=== PATIENT | female | born 1945 | race Caucasian/White ===

== ENCOUNTER → 2017-05-08 10:07 | Outpatient (CLI) | payer MEDICARE, BC, SELFPAY ==
[2017-05-10 08:50] LABS: HPV Reflexed? NOT INDICATED
== END ==
PROVIDERS: Family Provider Family Medicine; PCP Family Medicine; Visit Provider Family Medicine
DX: Z01.419 Encounter for gynecological examination (general) (routine) without abnormal findings (principal)
CPT/HCPCS: 36415; 88175; G0145

== ENCOUNTER → 2017-05-16 08:14 | Outpatient (CLI) | payer MEDICARE, BC, SELFPAY ==
[2017-05-16 09:43] LABS: Anion Gap 7 (5-15); BUN 12 mg/dL (7-18); BUN/Creat Ratio 16.2 RATIO (10-20); Calcium,Total 8.7 mg/dL (8.5-10.1); Chloride 103 mmol/L (98-107); Cholesterol 209 mg/dL (200); Creatinine, Serum 0.74 mg/dL (0.55-1.02); EST Glomerular Filtration Rate 82 mL/min (>60); Est Glom Filt Rate - Afr Amer 99 mL/min (>60); Glucose 104 mg/dL (70-110); High Density Lipoprotein 67 mg/dL; Potassium 3.3 mmol/L (3.5-5.1); Sodium Level 141 mmol/L (136-145); T4 Free Direct 1.18 ng/dL (0.76-1.46); Thyroid Stim Hormone (TSH) 1.97 uIU/mL (0.358-3.74); Triglycerides 152 mg/dL; Very Low Density Lipoprotein 30 mg/dL (5-40)
[2017-05-17 08:55] LABS: PTHIN 12.3 pg/mL (18.4-80.1)
[2017-05-21 10:25] LABS: Vitamin D 1,25-Dihydroxy 18.7 pg/mL (19.9-79.3)
== END ==
PROVIDERS: Nurse Practitioner; Family Provider Family Medicine; PCP Family Medicine; Visit Provider Family Medicine
DX: E03.9 Hypothyroidism, unspecified (principal); E78.1 Pure hyperglyceridemia; E21.5 Disorder of parathyroid gland, unspecified
CPT/HCPCS: 36591; 80048; 80061; 82330; 82652; 83970; 84439; 84443; 84481; A4216

== ENCOUNTER → 2017-10-15 12:57 | Outpatient (CLI) | payer MEDICARE, BC, SELFPAY ==
[2017-10-15 14:04] LABS: Free T3 2.6 pg/mL (2.18-3.98); T4 Free Direct 1.21 ng/dL (0.76-1.46); Thyroid Stim Hormone (TSH) 1.51 uIU/mL (0.358-3.74)
[2017-10-16 10:22] LABS: Vitamin D,25 Hydroxy 33.7 ng/mL (29.95-100.01)
== END ==
PROVIDERS: Family Provider Family Medicine; PCP Family Medicine; Visit Provider Nurse Practitioner
DX: E03.9 Hypothyroidism, unspecified (principal); E55.9 Vitamin D deficiency, unspecified
CPT/HCPCS: 36591; 82306; 84439; 84443; 84481; A4216

== ENCOUNTER → 2017-10-28 10:29 | Outpatient (CLI) | payer MEDICARE, BC, SELFPAY ==
[2017-10-28 11:08] LABS: AST(SGOT) 21 U/L (15-37); Alanine Aminotransfer ALT/SGPT 24 U/L (13-56); Albumin, Serum 3.8 g/dL (3.2-5.0); Alkaline Phosphatase 74 U/L (45-117); Anion Gap 9 (5-15); BUN 10 mg/dL (7-18); BUN/Creat Ratio 12.8 RATIO (10-20); Calcium,Total 8.8 mg/dL (8.5-10.1); Chloride 100 mmol/L (98-107); Creatinine, Serum 0.78 mg/dL (0.55-1.02); EST Glomerular Filtration Rate 77 mL/min (>60); Est Glom Filt Rate - Afr Amer 94 mL/min (>60); Globulin 3.8 g/dL (2.2-4.2); Glucose 101 mg/dL (74-106); Potassium 3.4 mmol/L (3.5-5.1); Protein, Total 7.6 g/dL (6.4-8.2); Sodium Level 139 mmol/L (136-145)
== END ==
PROVIDERS: Family Provider Family Medicine; PCP Family Medicine; Visit Provider Nurse Practitioner
DX: E87.6 Hypokalemia (principal)
CPT/HCPCS: 36591; 80053; A4216

== ENCOUNTER → 2018-04-25 10:24 | Outpatient (CLI) | payer MEDICARE, BC, SELFPAY ==
[2018-04-25 11:39] LABS: Free T3 2.6 pg/mL (2.18-3.98); T4 Free Direct 1.16 ng/dL (0.76-1.46); Thyroid Stim Hormone (TSH) 1.25 uIU/mL (0.358-3.74)
[2018-04-25 11:49] LABS: Vitamin D,25 Hydroxy 35.1 ng/mL (29.95-100.01)
== END ==
PROVIDERS: Family Provider Family Medicine; PCP Family Medicine; Referring Provider Nurse Practitioner; Visit Provider Nurse Practitioner
DX: E03.9 Hypothyroidism, unspecified (principal); E55.9 Vitamin D deficiency, unspecified
CPT/HCPCS: 36591; 82306; 84439; 84443; 84481; A4216

== ENCOUNTER 2018-05-29 05:50 | Emergency (ER) | payer MEDICARE, BC, SELFPAY ==
[2018-04-29 09:25] VITALS: BMI 26.8
[2018-05-29 05:51] VITALS: BP 164/79; PULSE 83; RESP 16; TEMP 36.6; O2SAT 98; BMI 25.8
--- NOTE | 2018-05-29 06:07 | RAD_ITS ---
HISTORY: FELLC/O RT SHOULDER AND PROXIMAL HUMERUS PAIN COMPARISON: None FINDINGS: XR right shoulder 3 views Impacted, displaced fracture of the right humeral surgical neck. Posterior rotation of the humeral head but no dislocation. The remaining visualized bones appear intact. The right AC joint appears preserved. Right jugular Port-A-Cath in place. RAD/Shoulder min 2 Views IMPRESSION: Impacted, displaced fracture of the right humeral neck. at 0634 Reported and signed by: Warren Sifuentes MD Electronically Signed: Warren Sifuentes, at 6:33 EST Tel , Service support ,
--- NOTE | 2018-05-29 06:08 | ED.DCSUM_ITS ---
- ER Visit Summary Date of Service: 05/29/18 Chief Complaint: [] Fall with injury to right upper arm History of Present Illness: The patient is a 72 F she stated she injured her right upper arm 30 minutes ago. She was walking up steps and was moving a baby gate. She slipped on the steps and tripped and fell down onto the hardwood floor below. She is having pain in her right shoulder. She stated that it hurts to move it. She is unsure if she broke it. Comes in for further evaluation. She did have a hydrocodone 3 hours ago. She takes this chronically. She broke her left wrist 3 weeks ago after she slipped and fell on the ice. She saw orthopedics and had this casted Physical Examination: [] Vital signs reviewed General: Well-nourished well-developed Head: Normocephalic atraumatic Eyes: Pupils equal round and reactive to light extraocular movements intact ENT: TMs clear no hemotympanum no trauma Neck: Nontender full range of motion Cardiovascular: Regular rate rhythm no murmurs normal S1-S2 Respiratory: No distress clear to auscultation bilaterally chest nontender Abdomen: Soft nontender nondistended normal bowel sounds no masses Back: Nontender no CVA tenderness Extremities: Tenderness to palpation with inability to move the right shoulder. No tenderness of the clavicle. No distal humerus tenderness. Elbow forearm and wrist normal. Distal neurovascular intact Skin: Normal color no trauma Neuro alert oriented cranial nerves II through XII intact normal strength sensation reflexes Test Results: [] Emergency Department Course and Treatment: [] X-ray of the right shoulder obtained she does have a right humeral fracture. She was placed in a sling and swath and given a dose of morphine. She will follow-up with her own orthopedic surgeon. She will be given a short course of Percocet for home. She states that hydrocodone given to her by family doctor no longer works. She was stopped taking this and take the stronger Percocet. Treatment Plan: [] Disposition: [] Impression: [] Right humeral head fracture This note was generated with [employer] dictation software. It may contain incorrect words, spelling, and punctuation that were not noted in review of the chart prior to signing ED Disposition - Plan for ED Patient: Referrals: Erica Richardson DO [Primary Care Provider] -
--- NOTE | 2018-05-29 06:47 | ED.DEP ---
ED Disposition - Plan for ED Patient: Disposition: Home or Assisted Living Instructions: ED Fx Shoulder Prescriptions: Oxycodone HCl/Acetaminophen [Percocet 5/325] 1 - 2 tab PO Q6H PRN PRN 3 Days #15 tab PRN Reason: Pain Referrals: Erica Richardson DO [Primary Care Provider] - Additional Instructions: follow with your orthopedic surgeon
[2018-05-29] MEDS: Morphine 4 MG/ML Syringe IM (06:56)
[2018-05-29 07:19] VITALS: PULSE 87; O2SAT 93
== END 2018-05-29 07:20 | disposition home or self-care (01) ==
PROVIDERS: Emergency Provider Emergency Medicine; Family Provider Family Medicine; PCP Family Medicine
DX: S42.291A Other displaced fracture of upper end of right humerus, initial encounter for closed fracture (principal); W00.0XXA Fall on same level due to ice and snow, initial encounter; Y93.9 Activity, unspecified; Y92.89 Other specified places as the place of occurrence of the external cause; Y99.9 Unspecified external cause status; Z85.3 Personal history of malignant neoplasm of breast
CPT/HCPCS: 73030; 96372; 96374; 99284

== ENCOUNTER → 2018-10-01 07:14 | Outpatient (CLI) | payer MEDICARE, BC, SELFPAY ==
--- NOTE | 2018-10-01 08:30 | BRBX_PTH ---
PATIENT: AIDEN FIELDS LOC: [facility] U#:[id number] AGE/SX: 79/F ROOM: RE10/01/[address]: Dr. Devora Harvey MD : 1945 BED: DIS: SPEC #: [id number] RECD: 10/01/18 09:28 STATUS: AVANI MARTIR #: [id number] MEREDITH: 10/01/18 08:[address]: Devora Harvey DEPT: SURGICAL PATHOLOGY RECD BY: Sole Olivera ENTERED: 10/01/18 11:42 SP TYPE: BREAST BX OTHR DR: Dr. 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 No evidence of malignancy. AM:arthur 10/02/18 MICROSCOPIC DESCRIPTION Slides are reviewed. GROSS DESCRIPTION Received is one container labeled with the patient's name and not further designated. The specimen consists of multiple elongated fragments of ward-yellow fibroadipose tissue that in aggregate measure 5 x 3 x 0.3 cm. The entire specimen is submitted in two cassettes. / SJ:arthur 10/01/18 TC:5 [facility]: [id number]
--- NOTE | 2018-10-01 09:01 | HP.PCM_ITS ---
History and Physical Date of Admission: 10/01/18 Romana Carson 1945 ? ? REFERRING PHYSICIAN: Lupe Pinon APRN.* ? CHIEF COMPLAINT: Consult (Consult Calcifications) ? HPI: The patient is a 72 year old female presents with abnormal calcifications on right breast mammograms - superior lateral quadrant middle depth. She is s/p right breast mastectomy for breast cancer Denies noting any masses. Denies right breast nipple discharge. Denies previous right breast biopsy Denies breast pain. ? Mammograms 09/10/18 There are a grouped pleomorphic calcifications in the right breast superior lateral quadrant middle depth. No other significant masses or calcifications are seen in the breast. ? ? PAST MEDICAL HISTORY ? Abdominal pain, left lower quadrant ? ? Abdominal pain, right lower quadrant ? ? Anxiety state, unspecified ? ? Breast cancer (HCC) ? ? left ? Colitis ? ? Depressive disorder, not elsewhere classified ? ? HTN (hypertension) ? ? Hypothyroidism ? ? Insomnia, unspecified ? ? Mitral valve disorders(424.0) ? ? Unspecified constipation ? ? Unspecified constipation ? ? ? PAST SURGICAL HISTORY ? COLONOSCOP W/ OR W/O BRSH SPEC ? 10/07/07 ? EYE SURGERY HX Left 10/21/2014 ? laser glaucoma surgery ? EYE SURGERY HX Right 11/04/2014 ? laser glaucoma surgery ? KNEE SCOPE,DIAGNOSTIC ? 2011 ? Arthroscopy, left knee ? MASTECTOMY, MODIFIED RADICAL ? 09-04-12 ? left ? OPEN RX PROX HUMERUS FX Right 06/13/2018 ? ORIF right shoulder proximal humerus ? PAST SURGICAL HISTORY OF ? ? ? lump removed from left side of neck as a child ? PAST SURGICAL HISTORY OF ? ? ? breast biopsies, negative ? PAST SURGICAL HISTORY OF ? 01/2008 ? D&C ? PAST SURGICAL HISTORY OF ? 06/08/2009 ? Thyroidectomy ? PAST SURGICAL HISTORY OF ? 2011 ? ganglions cyst removed from left hand twice ? PAST SURGICAL HISTORY OF ? 06/06/2012 ? Left breast biopsy ? PAST SURGICAL HISTORY OF ? 06/26/2012 ? Left axillary biopsy ? PAST SURGICAL HISTORY OF ? 2014 ? right upper arm- removal of melanoma ? PAST SURGICAL HISTORY OF Left 10/21/2014 ? PAST SURGICAL HISTORY OF Right 11/04/2014 ? REMOVAL OF TONSILS,<12 Y/O ? ? ? Tonsillectomy ? TUNNEL VAD W SUB Q PORT >=5 ? 3-11-13 ? RIGHT IJ ? ? Current Outpatient Medications: famotidine (PEPCID) 20 mg tablet TAKE 1 TABLET BY MOUTH DAILY AT BEDTIME. letrozole (FEMARA) 2.5 mg tablet TAKE 1 TABLET BY MOUTH ONCE DAILY. levothyroxine (SYNTHROID) 125 mcg tablet Take 125 mcg by mouth once daily. LYRICA 100 mg capsule Take 100 mg by mouth three times daily. CALCIUM CITRATE/VITAMIN D3 (CITRACAL + D ORAL) Take 2 tablets by mouth once daily. calcitriol (ROCALTROL) 0.5 mcg capsule Take 1 capsule by mouth once daily. nortriptyline (PAMELOR) 50 mg capsule Take 100 mg by mouth daily at bedtime. indapamide (LOZOL) 1.25 mg tablet Take 1.25 mg by mouth once daily. VIT C/E/ZN/COPPR/LUTEIN/ZEAXAN (PRESERVISION AREDS 2 ORAL) Take 1 tablet by mouth once daily. Cholecalciferol, Vitamin D3, 1,000 unit tab Take 1 tablet by mouth once daily. Aspirin 81 mg tab Take 81 mg by mouth once daily. Fiber cap Take 4 capsules by mouth once daily as needed. docusate sodium (COLACE) 100 mg ORAL Cap Take three capsules by mouth twice daily as needed. clonazepam(KLONOPIN 1 MG TAB) Take one tablet by mouth four times daily as needed. HYDROcodone-acetaminophen (NORCO) 5-325 mg per tablet ONE TABLET BY MOUTH FOUR TIMES DAILY NEEDED 0.9 % sodium chloride (0.9% NACL) Access implanted vascular access device (IVAD) as needed for flush, blood draw or treatment.Flush IVAD with 10-20 mL NS every 4 weeks and PRN when IVAD not in use. heparin 100 unit/mL injection Access implanted vascular access device (IVAD) as needed for flush, blood draw or treatment. Before de-accessing port, flush with 10-20ml normal saline and follow with 5 mL heparin (100 units/mL) (if no heparin allergy). De-access port on treatment completion. polyethylene glycol 3350 (MIRALAX) 17 gram/dose powder Take 17 g by mouth once daily. pyridoxine (VITAMIN B6) 100 mg tablet Take 100 mg by mouth once daily. phenazopyridine (PYRIDIUM) 200 mg tablet Take 1 tablet by mouth three times daily as needed. COMPOUNDED PRESCRIPTION L8030 Breast Prosehesis COMPOUNDED PRESCRIPTION L8020 Leisure Breast Form COMPOUNDED PRESCRIPTION L8000 Surgical/Mastectomy Bras glycerin(COLACE (GLYCERIN) 1.5 G RECT SUPP) Insert one suppository into rectum once daily ? ? ALLERGIES: Antihistamines - Alkylamine; Neosporin [Erglcvas-Jjocqhkzge-[id number]] ? PERSONAL HISTORY: Social History Socioeconomic History Marital status: Spouse name: Not on file Number of children: Not on file Years of education: Not on file Highest education level: Not on file Social Needs Financial resource strain: Not on file Food insecurity - worry: Not on file Food insecurity - inability: Not on file Transportation needs - medical: Not on file Transportation needs - non-medical: Not on file Occupational History Not on file Tobacco Use Smoking status: Current Every Day Smoker Packs/day: 0.50 Years: 40.00 Pack years: 20 Types: Cigarettes Smokeless tobacco: Never Used Substance and Sexual Activity Alcohol use: No Drug use: No Sexual activity: Not on file Other Topics Concerns: Not on file Social History Narrative Not on file ? FAMILY HISTORY ? Heart Mother ? ? stents ? None Father ? ? suicide, depression age 68. ? Heart Sister ? ? Thyroid Sister ? ? ? REVIEW OF SYSTEMS: General - denies fevers, improving appetite Cardiovascular - denies chest pain, denies chest palpitations Pulmonary - denies shortness of breath, denies coughing up blood Gastrointestinal - denies abdominal pain, denies nausea/emesis Neurological - denies seizures, numbness of extremities secondary to chemotherapy Genitourinary - denies burning with urination, denies blood in stools Hematological - denies spontaneous/prolonged bleeding Skin - denies nonhealing skin wounds Musculoskeletal - denies myalgias Endocrine - denies diabetes Psychological ? denies hallucinations Obstetrical: menarche onset at age 12/13, , first at age 24, denies breast feeding, menopause at age 43, HRT for 5-10 y ? PHYSICAL EXAMINATION: General: The patient is 72 year old female, well nourished, well hydrated in no acute distress. The patient is oriented to time, place, and person. VITALS: BP 168/90 ? Pulse 78 ? Temp 98.7 ?F Wt 152 lb BMI 24.53 kg/m? ? Head ? Normocephalic. EOM intact with sclera clear and no icterus noted. Wearing glasses. Mouth with mucus membranes moist. Neck - supple with no jugular venous distention noted. Trachea is midline. No carotid bruits noted. No thyroid enlargement or thyroid nodules detected. No masses noted. Chest/breast ? upper right chest portacath in place, left breast is surgically absent, no suspicious skin lesions noted, no right nipple discharge and nipple everted, no breast masses noted Lungs ? clear to auscultation. Normal breath sounds. No rales/rhonchi/wheezing noted. No labored breathing noted, such as retractions. No cough heard. Heart ? normal S1 and S2 auscultated. No rubs/clicks/murmurs noted. Regular rate. Abdomen ? soft and benign. Normal bowel sounds. No abdominal bruits noted. No masses noted. Extremities ? no calf tenderness noted. No pitting edema noted. Skin ? normal skin integrity. Lymph ? no cervical adenopathy detected, no supraclavicular adenopathy detected, no axillary adenopathy detected Neurological ? gait normal, no focal deficits noted. Psych ? calm and appropriate RADIOLOGIC STUDIES: As Noted ? ? IMPRESSION: abnormal calcifications of right breast mammograms, history of left breast cancer ? PLAN: I have discussed the above with the patient and her who is pr esent with her I have offered right stereotactic breast biopsy. I have explained the procedure to the patient. I have counseled the patient as to the risks of the procedure, including but not limited to: infection, bleeding, injury to any blood vessels/nerves, scar tissue, wound infections, complications of anesthesia, etc. ? the patient understands. The patient wishes to proceed. She will need to be off aspirin for three days prior to the procedure. I have answered all questions to the patient?s satisfaction and the patient has no further questions. . Diagnoses: (R92.8) Abnormal mammogram (primary encounter diagnosis) (Z85.3) History of left breast cancer (Z79.82) Aspirin long-term use Return to Clinic: The patient is instructed to follow-up with me after the procedure above. ? I have confirmed and edited as necessary, the PFSH and ROS obtained by others. ? Devora Harvey MD
--- NOTE | 2018-10-01 09:02 | OP.PCM_ITS ---
Report of Operation Date of Procedure: 10/01/18 Pre-Operative Diagnosis: abnormal right breast calcifications on mammograms Post-Operative Diagnosis: same Surgery/Procedure Performed:: right stereotactic breast biopsy Description of Surgical Findings:: upper outer lesion of the right breast Type of Anesthesia:: Local - 1% xylocaine Specimen's removed: right breast tissue Estimated Blood Loss (mL): < 1 ml Fluids Replaced: none Description of Procedure: After informed consent was given, the patient was brought into the breast biopsy suite and then placed in the prone position on the stereotactic biopsy table. The patient?s right breast was then placed in the opening at the head of the table. A network control technician compression mammogram was then obtained in the CC view. The suspicious radiological lesion was then identified. Stereo pictures of the lesion were then taken for XYZ coordinates. The Mammotome biopsy stylus was then positioned where it would be entering into the patient?s breast. The skin at this site was then cleansed with a surgical skin preparation. The skin and subcutaneous tissues at this site were then infiltrated with 1% xylocaine. A small skin incision was made with an 11 blade scalpel. The biopsy stylus was then positioned into the patient?s breast at the proper coordinates of depth. Using the Mammotome vacuum-assist device, several core samples of breast tissue were obtained. A specimen mammogram was the obtained and revealed that the suspicious lesion was within the specimen. A hemostatic marker clip was then placed into the biopsy cavity and a network control technician film revealed that it was properly deployed. The patient was then placed in the supine position and pressure was applied to the breast until no active bleeding was noted. Steristrips were applied to reapproximate the skin. A unilateral mammogram in the CC and MLO view were then taken which revealed that the marker clip was in the same area as the previous suspicious lesion. The patient tolerated the procedure well and was discharged from the breast biopsy suite in good condition. - Complications none noted
== END ==
PROVIDERS: Family Provider Family Medicine; PCP Family Medicine; Referring Provider Surgery; Visit Provider Surgery
DX: R92.1 Mammographic calcification found on diagnostic imaging of breast (principal); I10 Essential (primary) hypertension; E03.9 Hypothyroidism, unspecified; Z79.82 Long term (current) use of aspirin; Z85.3 Personal history of malignant neoplasm of breast; F17.210 Nicotine dependence, cigarettes, uncomplicated; Z90.11 Acquired absence of right breast and nipple
CPT/HCPCS: 19081; 88305; J7050; A4648

== ENCOUNTER → 2018-12-04 06:50 | Outpatient (CLI) | payer MEDICARE, BC, SELFPAY ==
--- NOTE | 2018-12-04 07:04 | MRI_ITS ---
STUDY: MRI BRAIN WITH AND WITHOUT CONTRAST REASON FOR EXAM: Female, 73 years old. Gait disturbance, malignant melanoma, breast cancer. TECHNIQUE: Standardized multiplanar fat and water weighted pulse sequences were obtained. 13 IV Dotarem was administered for the contrast portion of the examination. COMPARISON: 11/09/2009 FINDINGS: There is moderate cerebral atrophy with widening of the extra-axial spaces and ventricular dilatation. There are a limited number of small white matter hyperintensities, distributed throughout the deep white matter tracts of the cerebral hemispheres, consistent with mild chronic white matter ischemic changes. There is no evidence for recent intracranial ischemia or other cause of cytotoxic edema on diffusion weighted imaging (DWI). Normal T2* images of the brain without demonstrated susceptibility artifact. There is no demonstrated hemosiderin stain. Normal bilateral basal ganglia. Normal thalami. There is no extra-axial fluid accumulation. Normal flow voids within the major intracranial circulation suggesting patency by spin echo criteria. Normal venous enhancement. There is no enhancing intra-axial or extra-axial abnormality. Normal sella turcica, pituitary gland, infundibular stalk, optic chiasm and hypothalamus. Normal tectal plate and pineal gland. Normal midbrain, diana and medulla. Normal cerebellum. Normal basal cisterns. Normal bilateral temporal bones. Normal bilateral internal auditory canals. No demonstrated orbital abnormality, within the constraints of a routine brain study. Normal visualized paranasal sinuses. Normal calvarium and skull base. Normal visualized soft tissue structures. Normal visualized upper cervical spine. MRI/Brain W/WO Contrast IMPRESSION: Involutional changes of the brain, as described above. No MR evidence of metastatic disease. Electronically Signed: Colten Simms MD at 9:01 EDT Tel , Service support ,
[2018-12-04 07:19] LABS: Absolute Lymphocyte Count 1.75 X10^3/uL (0.83-4.51); Absolute Neutrophil Count 6.5 X10^3/uL (2.0-7.7); Basophil# 0.14 X10^3/uL; Basophil% 1.3 % (0-1); Eosinophil# 1.06 X10^3/uL; Eosinophils% 10.2 % (0-5); Hematocrit 38.6 % (37-47); Hemoglobin 12.7 g/dL (12.0-15.0); Lymphocyte # 1.75 X10^3/ul (4.0); Lymphocyte % 16.8 % (19-41); Mean Corp Hgb Conc 32.9 g/dL (32-36); Mean Corpuscular Hgb 30.6 pg (27.0-32.0); Mean Platelet Vol. 10.8 fl (6.2-12.0); Monocyte# 0.94 X10^3/uL; NRBC Flagged by Analyzer 0 % (0-5); Neutrophil # 6.49 X10^3/uL (2.7-7.7); Neutrophil % 62.2 % (47-70); Platelet Count 266 K/mm3 (150-450); RBC Distribution Width CV 13.2 % (11.6-14.6); RBC Distribution Width SD 44.7 fl (35.1-43.9); Red Blood Count 4.15 M/mm3 (4.2-5.4); White Blood Count 10.4 K/mm3 (4.4-11.0)
[2018-12-04 07:35] LABS: AST(SGOT) 16 U/L (15-37); Alanine Aminotransfer ALT/SGPT 24 U/L (13-56); Albumin, Serum 3.8 g/dL (3.2-5.0); Alkaline Phosphatase 86 U/L (45-117); Anion Gap 7 (5-15); BUN 10 mg/dL (7-18); BUN/Creat Ratio 12.6 RATIO (10-20); Calcium,Total 8.7 mg/dL (8.5-10.1); Chloride 101 mmol/L (98-107); Creatinine, Serum 0.79 mg/dL (0.55-1.02); EST Glomerular Filtration Rate 76 mL/min (>60); Est Glom Filt Rate - Afr Amer 92 mL/min (>60); Globulin 3.7 g/dL (2.2-4.2); Glucose 107 mg/dL (74-106); LDH 186 U/L (84-246); Potassium 3.5 mmol/L (3.5-5.1); Protein, Total 7.5 g/dL (6.4-8.2); Sodium Level 137 mmol/L (136-145)
== END ==
PROVIDERS: Family Provider Family Medicine; PCP Family Medicine; Referring Provider Family Medicine; Visit Provider Family Medicine
DX: Z51.81 Encounter for therapeutic drug level monitoring (principal); C43.9 Malignant melanoma of skin, unspecified; Z85.820 Personal history of malignant melanoma of skin
CPT/HCPCS: 36415; 70553; 80053; 83615; 85025; A9575

== ENCOUNTER 2019-02-13 13:34 | Emergency (ER) | payer MEDICARE, BC, SELFPAY ==
[2019-02-13 13:35] VITALS: BP 143/87; PULSE 93; RESP 20; TEMP 36.7; O2SAT 95; BMI 26.9
--- NOTE | 2019-02-13 14:01 | CT_ITS ---
STUDY: CT BRAIN WITHOUT CONTRAST REASON FOR EXAM: Female, 73 years old. Pain following a fall. The patient has a history of breast cancer. RADIATION DOSAGE (If Supplied By Facility): CTDIvol = ( 44.99 ) mGy, DLP = ( 796.11 ) mGycm TECHNIQUE: Transaxial CT imaging of the brain was performed without administration of intravenous contrast material. Individualized dose optimization techniques were used for this CT. COMPARISON: No relevant priors. FINDINGS: Normal soft tissue structures. Normal calvarium. There is mild cerebral atrophy with widening of the extra-axial spaces and ventricular dilatation. Normal white matter tracts of the cerebral hemispheres. Normal basal ganglia and thalami. Normal brainstem. Normal cerebellum. There is no intracranial hemorrhage. There are no findings of an acute ischemic infarction. Normal visualized paranasal sinuses. CT/Brain/Head without Contrast IMPRESSION: Chronic involutional changes of the brain. Electronically Signed: Franki Glez, at 14:58 EDT , Service support ,
--- NOTE | 2019-02-13 14:02 | ED.DCSUM_ITS ---
History of Present Illness Chief Complaint: Fall Narrative: 73-year-old female slipped on her carpeted steps falling backwards striking the back of her head and her lower back. She denies any other injuries. She has only a mild headache at this time. No neck pain. Minimal low back pain but she feels that it is most likely muscular. She recalls all details of the event. She was able to get back up on her own. She did not sustain an injury to her extremity's. The onset of her pain was sudden. The severity is mild. It is better with ice. Past Medical History - Allergies and Home Meds Allergies/Adverse Reactions: Allergies bacitracin [From Neosporin ([id number])] Allergy (Unknown, Verified 02/13/19 13:38) Unknown diphenhydramine [From Benadryl] Allergy (Unknown, Verified 02/13/19 13:38) Unknown neomycin [From Neosporin ([id number])] Allergy (Unknown, Verified 02/13/19 13:38) Unknown polymyxin B [From Neosporin ([id number])] Allergy (Unknown, Verified 02/13/19 13:38) Unknown benedryl Allergy (Severe, Uncoded 02/13/19 13:38) Unknown Primary Care Physician: Erica Richardson DO [Primary Care Provider] - Prior records reviewed: Yes Smoking Status: Current every day smoker Review of Systems General: Denies: Chills, Fever, Sweats Eyes: Denies: Visual changes - bilaterally, Diplopia ENT: Denies: Rhinorrhea, Sore throat Cardiovascular: Denies: Chest pain, Palpitations Respiratory: Denies: Dyspnea, Cough, Dyspnea on exertion Gastrointestinal: Denies: Abdominal pain, Nausea, Vomiting, Diarrhea, Melena, Hematochezia Genitourinary: Denies: Dysuria, Hematuria, Frequency Musculoskeletal: Reports: Back pain. Denies: Extremity Pain Skin: Denies: Rash, Wounds Neurological: Reports: Headache. Denies: Weakness, Numbness Physical Exam Vital Signs/Narrative: Vital Signs Temp Pulse Resp BP Pulse Ox 02/13/19 13:35 98.1 F 93 20 H 143/87 H 95 General: Well nourished, Well developed, No Acute Distress Head: Normocephalic, Atraumatic Eyes: Perrl, EOMI ENT: Moist mucous membranes, No rhinorrhea Neck: Supple, Nontender Cardiovascular: Regular rate, Regular rhythm, No murmurs Respiratory: No distress, CTA bilaterally, Chest nontender Abdomen: Soft, Nontender, Nondistended, Normal bowel sounds Back: Normal Inspection, - - Paraspinal lumbar tenderness bilaterally. No midline bony spinal tenderness, erythema, or fluctuance. Extremities: Nontender, No edema Skin: Normal color, No rash Neurological: Alert, Oriented x3, Cranial nerves II-XII grossly intact, Normal Strength, Normal Sensation Psychological: Normal affect, Normal Mood Diagnostic/Tx/Re-eval - Medical Decision Making CT brain is negative. She has no neck tenderness at all. There is a thoracic compression fracture at T12 but no evidence of displacement. Her neurologic exam is normal. No weakness anywhere. No evidence of other injury. She can ambulate without difficulty. She is comfortable going home with close follow- up. She will see her doctor on Saturday for specialist referrals and return here if worse. She is on chronic pain medication and was honest with me about her prescriptions but I did write her a short course to help with breakthrough pain over the weekend. She was instructed to return here if she has any neurologic symptoms or increased pain. ED Disposition - Plan for ED Patient: Disposition: Home or Assisted Living Diagnosis: T12 compression fracture, Concussion without loss of consciousness, initial encounter Instructions: FALL, Mechanical, Back Fracture (Compression Fracture), Concussion Prescriptions: Docusate Sodium [Colace] 100 mg PO DAILY #20 capsule Oxycodone HCl/Acetaminophen [Percocet 5/325] 1 tablet PO Q6H PRN PRN 3 Days #12 tablet PRN Reason: Pain Or Fever Referrals: Erica Richardson DO [Primary Care Provider] -
[2019-02-13] MEDS: Morphine 4 MG/ML Syringe IM (14:32)
--- NOTE | 2019-02-13 14:40 | RAD_ITS ---
STUDY: X-RAY - LUMBAR SPINE REASON FOR EXAM: Female, 73 years old. Neck pain following a fall. TECHNIQUE: AP and lateral view(s) of the lumbar spine were obtained. COMPARISON: None FINDINGS: Compression fracture of the T12 vertebrae with approximately 20% loss of height. There is straightening of the normal lumbar lordosis. There is a mild levoscoliosis of the lumbar spine. There is a normal alignment of the vertebrae. There is multilevel endplate spondylosis of the lumbar vertebrae. There is multi-level degenerative disc disease with multi-level disc space narrowing. There is atherosclerotic calcification of the abdominal aorta without a demonstrated aneurysm. RAD/Lumbar Spine 2 or 3 Views IMPRESSION: Nondisplaced compression fracture of the T12 vertebrae. Electronically Signed: Franki Glez, at 15:16 EDT , Service support ,
[2019-02-13 15:52] VITALS: BP 141/85; PULSE 103; RESP 17; O2SAT 98
[2019-02-13 16:21] VITALS: BP 141/85; PULSE 103; O2SAT 97
== END 2019-02-13 16:22 | disposition home or self-care (01) ==
PROVIDERS: Emergency Provider Emergency Medicine; Family Provider Family Medicine; PCP Family Medicine
DX: M48.54XA Collapsed vertebra, not elsewhere classified, thoracic region, initial encounter for fracture (principal); S06.0X0A Concussion without loss of consciousness, initial encounter; W10.9XXA Fall (on) (from) unspecified stairs and steps, initial encounter; F17.200 Nicotine dependence, unspecified, uncomplicated; Z85.3 Personal history of malignant neoplasm of breast; Z88.8 Allergy status to other drugs, medicaments and biological substances
CPT/HCPCS: 70450; 72100; 99284; A4216

== ENCOUNTER 2019-05-19 07:37 | Emergency (ER) | payer MEDICARE, BC, SELFPAY ==
[2019-05-19 07:41] VITALS: BP 147/90; PULSE 105; RESP 17; TEMP 36.6; O2SAT 98; BMI 30.1
--- NOTE | 2019-05-19 08:08 | CT_ITS ---
STUDY: CT BRAIN WITHOUT CONTRAST REASON FOR EXAM: Female, 73 years old. FALL RADIATION DOSAGE (If Supplied By Facility): CTDIvol = ( 44.99 ) mGy, DLP = ( 796.11 ) mGycm TECHNIQUE: Transaxial CT imaging of the brain was performed without administration of intravenous contrast material. Individualized dose optimization techniques were used for this CT. COMPARISON: Comparison is made with prior study dated February 13, 2019. FINDINGS: Normal soft tissue structures. Normal calvarium. There is mild cerebral atrophy with widening of the extra-axial spaces and ventricular dilatation. Normal white matter tracts of the cerebral hemispheres. Normal basal ganglia and thalami. Normal brainstem. Normal cerebellum. There is no intracranial hemorrhage. There are no findings of an acute ischemic infarction. Atherosclerotic calcification of the cavernous portions of the internal carotid arteries. Normal visualized paranasal sinuses. CT/Brain/Head without Contrast IMPRESSION: Chronic involutional changes of the brain. Electronically Signed: Franki Glez, at 9:16 EST , Service support ,
--- NOTE | 2019-05-19 08:12 | RAD_ITS ---
STUDY: X-RAY - LUMBAR SPINE REASON FOR EXAM: Female, 73 years old. Fall, pain TECHNIQUE: 3 view(s) of the lumbar spine were obtained. COMPARISON: None FINDINGS: Normal lumbar lordosis. There is a levoscoliosis of the lumbar spine. There is a normal alignment of the vertebrae. There is multilevel endplate spondylosis of the lumbar vertebrae. There is multi-level degenerative disc disease with multi-level disc space narrowing. The soft tissue structures are unremarkable. RAD/Lumbar Spine 2 or 3 Views IMPRESSION: Degenerative changes of the spine, as detailed above. Scoliosis. Electronically Signed: Franki Glez, at 9:23 EST , Service support ,
--- NOTE | 2019-05-19 08:12 | ED.VIS.GEN ---
History of Present Illness Chief Complaint: Weakness Informant: Patient Narrative: Patient presents with generalized weakness. She has had 3 different falls and has been brought to the emergency department and she is gradually getting weaker. She has no head injury, she has no neck pain she has no chest pain shortness of breath or dysuria. She tells me she is eating and drinking okay she has a walker but has been using her cane. She fell to the floor injuring her lower back but was not able to get up. Paramedics were called. Past Medical History - Allergies and Home Meds Allergies/Adverse Reactions: Allergies bacitracin [From Neosporin ([id number])] Allergy (Unknown, Verified 05/19/19 07:44) Unknown diphenhydramine [From Benadryl] Allergy (Unknown, Verified 05/19/19 07:44) Unknown neomycin [From Neosporin ([id number])] Allergy (Unknown, Verified 05/19/19 07:44) Unknown polymyxin B [From Neosporin ([id number])] Allergy (Unknown, Verified 05/19/19 07:44) Unknown benedryl Allergy (Severe, Uncoded 05/19/19 07:44) Unknown Primary Care Physician: Erica Richardson DO [Primary Care Provider] - Prior records reviewed: Yes Past Medical History: - - This is reviewed under summary tab of [employer] Lives: Spouse/ Significant Other Smoking Status: Former smoker Alcohol: None Review of Systems All systems negative except as indicated General: Denies: Fever Eyes: Denies: Visual changes - left Cardiovascular: Denies: Chest pain, Palpitations Respiratory: Denies: Dyspnea, Cough Gastrointestinal: Denies: Abdominal pain, Nausea Genitourinary: Denies: Dysuria, Hematuria Musculoskeletal: Reports: Back pain. Denies: Myalgias, Arthralgias Skin: Denies: Abscess, Abrasions, Wounds Neurological: Reports: Weakness. Denies: Headache Psych: Reports: Depression, Anxiety Endocrine: Denies: Polyuria Hematologic: Denies: Easy bruising Allergy: Denies: Uticaria Physical Exam Vital Signs/Narrative: Vital Signs Temp Pulse Resp BP Pulse Ox 05/19/19 07:41 97.8 F 105 H 17 147/90 H 98 Inital Vital Signs reviewed: No General: Well nourished, Well developed Head: Normocephalic Eyes: Perrl, EOMI ENT: Dry mucous membranes, - Neck: Supple Cardiovascular: Regular rate, Regular rhythm Respiratory: No distress Abdomen: Soft, Nontender, Nondistended Back: Nontender, Normal Inspection Extremities: Nontender, No edema Skin: Normal color, No rash Neurological: Alert, Oriented x3 Psychological: Normal affect Diagnostic/Tx/Re-eval - Medical Decision Making Patient is found to have a slight urinary tract infection, she is also hypokalemic this may contribute to her falls. I observed her walk around the emergency department she was doing quite well, however I have grave concerns about her being able to be safe at home. I discussed this with her. She is adamant about going home today. I will get social work to see if she can get some home health and some outpatient rehab. This would be reasonable however I did tell her to use her walker she normally only uses her cane. I told her to be very careful, she could fall and sustained a severe head injury or have a hip fracture or other traumatic events. She understands all this yet she still does not want to have any kind of inpatient rehab were brief hospitalization. I will give her IV Rocephin and p.o. antibiotics for home I will replenish her potassium. She understands that if she worsens she will call 911 and return to the emergency department. ED Disposition - Plan for ED Patient: Disposition: Home or Assisted Living Diagnosis: UTI (urinary tract infection), Hypokalemia, Weakness Instructions: WEAKNESS, Unk Cause, Hypokalemia Prescriptions: Potassium Chloride [K-Dur] 20 meq PO DAILY #10 tab Prescription Printed Cephalexin [Keflex] 500 mg PO [id number] #40 cap Prescription Printed Referrals: Erica Richardson DO [Primary Care Provider] - 3-5 Days
[2019-05-19] MEDS: 0.9% Normal Saline 1,000 ML 1000 ML IV (08:46)
[2019-05-19 08:51] LABS: Absolute Lymphocyte Count 1.57 X10^3/uL (0.83-4.51); Absolute Neutrophil Count 11.3 X10^3/uL (2.0-7.7); Basophil# 0.08 X10^3/uL; Basophil% 0.5 % (0-1); Eosinophil# 0.09 X10^3/uL; Eosinophils% 0.6 % (0-5); Hematocrit 39.1 % (37-47); Lymphocyte # 1.57 X10^3/ul (4.0); Lymphocyte % 10.6 % (19-41); Mean Corp Hgb Conc 33.2 g/dL (32-36); Mean Corpuscular Hgb 30.6 pg (27.0-32.0); Monocyte# 1.65 X10^3/uL; Monocyte% 11.2 % (0-10); NRBC Flagged by Analyzer 0 % (0-5); Neutrophil # 11.31 X10^3/uL (2.7-7.7); Neutrophil % 76.7 % (47-70); POSITIVE DIFFERENTIAL YES; Platelet Count 312 K/mm3 (150-450); RBC Distribution Width CV 17.2 % (11.6-14.6); RBC Distribution Width SD 57.5 fl (35.1-43.9); Red Blood Count 4.25 M/mm3 (4.2-5.4); White Blood Count 14.8 K/mm3 (4.4-11.0)
[2019-05-19 08:54] LABS: Differential Indicated SCAN CRITERIA MET
--- NOTE | 2019-05-19 09:00 | RAD_ITS ---
STUDY: X-RAY CHEST REASON FOR EXAM: Female, 73 years old. Fall, pain TECHNIQUE: Single AP portable view of the chest. COMPARISON: None. FINDINGS: A right-sided portacatheter is seen with the tip in the midportion of the superior vena cava. EKG electrodes are seen. The lungs are clear and expanded. There is no demonstrated pleural abnormality. Normal size heart. Normal mediastinum and zeinab. Normal visualized pulmonary arteries. There is atherosclerotic tortuosity of the aortic arch and descending thoracic aorta. Almost complete collapse of the T12 vertebrae. This appears to be sclerotic. Prior ORIF of the proximal right humerus. There is no demonstrated abnormality of the visualized soft tissue structures of the upper abdomen. RAD/Chest 1 View (Portable) IMPRESSION: No acute abnormality is seen. Almost complete collapse of the T12 vertebrae. Electronically Signed: Franki Glez, at 9:24 EST , Service support ,
[2019-05-19 09:07] LABS: AST(SGOT) 27 U/L (15-37); Alanine Aminotransfer ALT/SGPT 29 U/L (13-56); Albumin, Serum 3.6 g/dL (3.2-5.0); Alkaline Phosphatase 94 U/L (45-117); Anion Gap 9 (5-15); BUN 15 mg/dL (7-18); BUN/Creat Ratio 21.2 RATIO (10-20); Calcium,Total 7.7 mg/dL (8.5-10.1); Chloride 100 mmol/L (98-107); Creatinine, Serum 0.71 mg/dL (0.55-1.02); EST Glomerular Filtration Rate 86 mL/min (>60); Est Glom Filt Rate - Afr Amer 104 mL/min (>60); Globulin 3.7 g/dL (2.2-4.2); Glucose 121 mg/dL (74-106); Potassium 3.1 mmol/L (3.5-5.1); Protein, Total 7.3 g/dL (6.4-8.2); Sodium Level 136 mmol/L (136-145)
[2019-05-19 09:10] LABS: Platelet Estimate ADEQUATE (ADEQ); Red Cell Morphology NORM C+C NORMAL (NORM C&C)
[2019-05-19 09:28] LABS: Mucous, Urine 0 SEEN /hpf (<or=2+); Squamous Epithelial Cells - UA 0 SEEN /hpf (5-10)
[2019-05-19 09:29] LABS: Glucose, Dipstick Normal (Normal); Ketone-Dipstick 5 mg/dl (Negative); Leukocyte Esterase-Dipstick Negative /ul (Negative); Nitrite-Dipstick Positive (Negative); Occult Blood-Urine 25 /ul (Negative); Protein-Dipstick 100 mg/dl (Negative); Urine Clarity Sl. Cloudy (Clear); Urine Urobilinogen 8 mg/dl (Normal)
[2019-05-19 09:30] LABS: Color, Urine SEE COMMENT BELOW (Yellow); Urine Bilirubin Dipstick 6 mg/dL (Negative)
[2019-05-19 09:31] LABS: Bedside Glucose 111 mg/dL (70-110)
[2019-05-19 09:31] LABS: Bacteria 2+ /hpf (None Seen); Hyaline Cast 0-5 SEEN /lpf (0-5); Red Blood Cells-Urine 0-5 SEEN /hpf (0-5); White Blood Cells 0 SEEN /hpf (0-5)
[2019-05-19] MEDS: Ceftriaxone 1 GM/50 ML BAG IV (10:41)
--- NOTE | 2019-05-19 10:48 | CM.ED ---
SOCIAL WORK INFORMANT: DR. AUGUST REASON FOR REFERRAL: RESOURCES MET WITH PATIENT AND FAMILY IN ROOM. INTRODUCED ROLE AND REASON FOR REFERRAL. PATIENT GAVE PERMISSION FOR THIS WORKER TO SPEAK OPENLY WITH FAMILY PRESENT. PATIENT REPORTS LIVES IN A 2 STORY HOME WITH HER . BED AND BATHROOM ON SECOND FLOOR. PATIENT STATES UTILIZES CANE AND WALKER NEEDED. PATIENT ADMITS TO HISTORY OF ANXIETY AND STATES IS TREATED WITH MEDICATION. PATIENT FOLLOWS WITH DR. HILTON FOR PRIMARY CARE. PATIENT INQUIRING ABOUT ASSISTANCE IN THE HOME FOR MEAL PREPARATION AND LIGHT HOUSEKEEPING. EDUCATION PROVIDED ON [employer]. FAMILY BELIEVES PATIENT WOULD ALSO BENEFIT FROM PHYSICAL THERAPY FOR INCREASED WEAKNESS. PATIENT IN AGREEMENT WITH HOME HEALTH REFERRAL AND REQUESTS [facility]. REFERRAL CALLED TO ROXANNA WITH HOME HEALTH. LEFT VOICEMAIL. PLAN: HOME WITH HOME HEALTH REFERRAL AND INFORMATION ON [facility]. Demetrice HUTSON MSW, HYDRO EXCAVATION OPERATOR.
--- NOTE | 2019-05-19 14:10 | CM.ED ---
SOCIAL WORK RECEIVED CALL FROM ELIZA WITH [facility]. PER ELIZA, HAS RECEIVED REPORTS ON PATIENT AND INQUIRED IF THIS WORKER HAD ANY CONCERNS. BASED ON THIS WORKER'S ASSESSMENT AND PATIENT'S REQUESTS FOR ASSISTANCE IN THE HOME, NO CONCERNS AT THIS TIME. INFORMED ELIZA REFERRAL HAS BEEN MADE FOR HOME HEALTH SERVICES. ELIZA TO FOLLOW UP. Demetrice HUTSON MSW, HEEL COVERER MACHINE OPERATOR.
[2019-05-20 13:10] LABS: Pathologist Review Reviewed
== END 2019-05-19 11:47 | disposition home or self-care (01) ==
PROVIDERS: Emergency Provider Emergency Medicine; PCP Family Medicine
DX: N39.0 Urinary tract infection, site not specified (principal); E87.6 Hypokalemia; R53.1 Weakness; M41.9 Scoliosis, unspecified; Z87.891 Personal history of nicotine dependence; Z88.8 Allergy status to other drugs, medicaments and biological substances
CPT/HCPCS: 36591; 70450; 71045; 72100; 80053; 81001; 82962; 84484; 85025; 87086; 87088; 87186; 96361; 96365; 99285; J7030; A4216

== ENCOUNTER → 2019-05-25 09:05 | Outpatient (CLI) | payer MEDICARE, BC, SELFPAY ==
[2019-05-19 07:41] VITALS: BMI 30.1
[2019-05-25 10:15] LABS: Anion Gap 6 (5-15); BUN 14 mg/dL (7-18); BUN/Creat Ratio 17.7 RATIO (10-20); Calcium,Total 9.3 mg/dL (8.5-10.1); Chloride 103 mmol/L (98-107); Creatinine, Serum 0.79 mg/dL (0.55-1.02); EST Glomerular Filtration Rate 76 mL/min (>60); Est Glom Filt Rate - Afr Amer 92 mL/min (>60); Glucose 104 mg/dL (74-106); Potassium 4.3 mmol/L (3.5-5.1); Sodium Level 138 mmol/L (136-145)
== END ==
LOC: BFHLAB 09:40 → MEDOUTP 09:46
PROVIDERS: PCP Family Medicine; Referring Provider Family Medicine; Visit Provider Family Medicine
DX: Z45.2 Encounter for adjustment and management of vascular access device (principal); E87.6 Hypokalemia
CPT/HCPCS: 36415; 36591; 80048; A4216

== ENCOUNTER 2019-06-16 03:13 | Emergency (ER) | payer MEDICARE, BC, SELFPAY ==
[2019-06-16 03:14] VITALS: BP 152/90; PULSE 84; RESP 18; TEMP 36.6; O2SAT 96; BMI 24.8
--- NOTE | 2019-06-16 03:36 | ED.VIS.GEN ---
History of Present Illness Chief Complaint: Head Injury Informant: Patient Narrative: Patient stated she was leaning over the baby gate to remove it and lost her balance and struck the back of her head on the ground. She did not lose consciousness. Happened just prior to arrival. No blood thinners. Unsure of her last tetanus. Sustained a laceration on her posterior occiput and came in for further evaluation. Denies any neck pain or other injury. Current severity is mild. Denies any hematoma to her scalp. Worsened by nothing. Relieved by nothing. - Past Medical History (1) History of recent fall Status: Acute Comment: Patient has balance issue. No vertigo. has hearing issues and early onset alzheimers. Pt requires assist but has none. Discussed pt medic alert and determine this is necessary for her. (2) Hypothyroidism (acquired) Status: Chronic Comment: Continues on replacement therapy of Synthyroid 125mcg daily. States she does not feel bad when she is able to sleep at night but recently with her health issues she feels she is sleeping more restless. Labs reviewed and is in range. no change in regimen (3) Vitamin D deficiency Status: Chronic Comment: Continues on vitamin d replacement. Review of recent labs indicates now in range with replacement of vit D 2000 daily. Calcium in range. SCeduled for bone density in 1-2 months. Reports BMD good without osteoporosis. Past Medical History - Allergies and Home Meds Allergies/Adverse Reactions: Allergies bacitracin [From Neosporin ([id number])] Allergy (Unknown, Verified 05/19/19 07:44) Unknown diphenhydramine [From Benadryl] Allergy (Unknown, Verified 05/19/19 07:44) Unknown neomycin [From Neosporin ([id number])] Allergy (Unknown, Verified 05/19/19 07:44) Unknown polymyxin B [From Neosporin ([id number])] Allergy (Unknown, Verified 05/19/19 07:44) Unknown Primary Care Physician: Erica Richardson DO [Primary Care Provider] - Prior records reviewed: Yes Past Medical History: - - See problem list Surgical History: noncontributory Lives: With Family Smoking Status: Former smoker Alcohol: None Drugs: None Review of Systems General: Denies: Chills, Fever, Sweats Eyes: Denies: Visual changes - bilaterally, Diplopia ENT: Denies: Rhinorrhea, Sore throat Cardiovascular: Denies: Chest pain, Palpitations Respiratory: Denies: Dyspnea, Cough, Dyspnea on exertion Gastrointestinal: Denies: Abdominal pain, Nausea, Vomiting, Diarrhea, Melena, Hematochezia Genitourinary: Denies: Dysuria, Hematuria, Frequency Musculoskeletal: Denies: Back pain, Extremity Pain Skin: Reports: Wounds. Denies: Rash Neurological: Denies: Headache, Weakness, Numbness Physical Exam Vital Signs/Narrative: Vital Signs Temp Pulse Resp BP Pulse Ox 06/16/19 03:14 98 F 84 18 152/90 H 96 General: Well nourished, Well developed, No Acute Distress Head: Normocephalic, Trauma - 1 inch laceration left crown of her scalp. No hematoma. No bony step-off or deformity.. Negative for: Atraumatic Eyes: Perrl, EOMI ENT: Moist mucous membranes, No rhinorrhea Neck: Supple, Nontender Cardiovascular: Regular rate, Regular rhythm, No murmurs Respiratory: No distress, CTA bilaterally, Chest nontender Abdomen: Soft, Nontender, Nondistended, Normal bowel sounds Back: Nontender, Normal Inspection Extremities: Nontender, No edema Skin: Normal color, No rash, - - See above Neurological: Alert, Oriented x3, Cranial nerves II-XII grossly intact, Normal Strength, Normal Sensation Psychological: Normal affect, Normal Mood Diagnostic/Tx/Re-eval - Medical Decision Making Wound was cleansed with chlorhexidine. Washed with saline. Closed with 4 elia. Bacitracin applied. Wounds cleansed. I do not think she needs a CT of her head. There is no hematoma. There is no loss of consciousness. I do not think she has an intracranial hemorrhage. I feel this is a non-complicated laceration. We will follow-up as an outpatient. Tetanus updated ED Disposition - Plan for ED Patient: Disposition: Home or Assisted Living Diagnosis: Scalp laceration Instructions: LACERATION, Scalp Referrals: Eirca Richardson DO [Primary Care Provider] -
[2019-06-16] MEDS: Diphth,Pertuss(Acell),Tet Vac 0.5 ML Vial IM (04:07)
== END 2019-06-16 04:27 | disposition home or self-care (01) ==
PROVIDERS: Emergency Provider Emergency Medicine; PCP Family Medicine
DX: S01.01XA Laceration without foreign body of scalp, initial encounter (principal); W01.0XXA Fall on same level from slipping, tripping and stumbling without subsequent striking against object, initial encounter; Y93.9 Activity, unspecified; Y92.89 Other specified places as the place of occurrence of the external cause; Y99.9 Unspecified external cause status; E03.9 Hypothyroidism, unspecified; E55.9 Vitamin D deficiency, unspecified; Z87.891 Personal history of nicotine dependence; Z88.8 Allergy status to other drugs, medicaments and biological substances
CPT/HCPCS: 90471; 90715; 99284

== ENCOUNTER 2019-08-23 11:56 | Emergency (ER) | payer MEDICARE, BC, SELFPAY ==
[2019-08-23 11:56] VITALS: BP 127/79; PULSE 110; RESP 17; TEMP 37.1; O2SAT 93; BMI 25.4
--- NOTE | 2019-08-23 12:14 | CT_ITS ---
We are attempting to reach an attending provider to discuss findings. An addendum with communication details will be sent when the communication is complete. STUDY: CT BRAIN WITHOUT CONTRAST REASON FOR EXAM: Female, 73 years old. FALL, LAC TO POSTERIOR HEAD RADIATION DOSAGE (If Supplied By Facility): CTDIvol = ( 44.99 ) mGy, DLP = ( 779.24 ) mGycm TECHNIQUE: Transaxial CT imaging of the brain was performed without administration of intravenous contrast material. Individualized dose optimization techniques were used for this CT. COMPARISON: 05/19/2019 FINDINGS: There is a small localized subdural trauma over the left frontal lobe. It measures approximately 7 mm greatest thickness and is not causing mass effect. It is seen on sagittal images 30-37, axial images 25-31, and coronal images 15-24. No other acute intracranial abnormalities. There is mild cerebral atrophy with widening of the extra-axial spaces and ventricular dilatation. There are areas of decreased attenuation within the white matter tracts of the supratentorial brain, consistent with microvascular disease changes. Normal basal ganglia and thalami. Normal brainstem. There is mild cerebellar atrophy. There is no intracranial hemorrhage. There are no findings of an acute ischemic infarction. Normal visualized paranasal sinuses. CT/Brain/Head without Contrast IMPRESSION: Small localized subdural hematoma over the left frontal lobe with no mass effect. Atrophy and white matter disease. Electronically Signed: Danny Nair MD at 13:43 EDT , Service support ,
--- NOTE | 2019-08-23 12:15 | CT_ITS ---
STUDY: CT CERVICAL SPINE WITHOUT CONTRAST REASON FOR EXAM: Female, 73 years old. FALL, LAC TO POSTERIOR HEAD RADIATION DOSAGE (If Supplied By Facility): CTDIvol = ( 21.45 ) mGy, DLP = ( 472.77 ) mGycm TECHNIQUE: High resolution transaxial imaging was performed without contrast material. Sagittal and coronal images were reconstructed. Individualized dose optimization techniques were used for this CT. COMPARISON: None FINDINGS: Normal craniovertebral junction. There are degenerative changes of the anterior atlantoaxial articulation. Normal odontoid process. There is reversal of the normal cervical lordosis. Degenerative vertebral bodies and posterior osseous elements. C2-3: No evidence of spinal canal narrowing or significant foraminal narrowing. Bilateral facet arthropathy and posterior congenital arch abnormalities are noted. C3-4: Right facet arthropathy and uncovertebral joint arthropathy resulting in moderate right foraminal narrowing. No significant spinal canal narrowing. C4-5: Bilateral facet arthropathy right greater than left with degenerative anterolisthesis, grade 1. There is right moderate foraminal narrowing with accompanying uncovertebral joint arthropathy. C5-6: Decreased disc space and disc osteophyte complex is present with bilateral uncovertebral joint arthropathy resulting in moderate to severe right and mild left foraminal narrowing. C6-7: Decreased disc space and disc osteophyte complex with bilateral uncovertebral joint arthropathy resulting in moderate to severe bilateral foraminal narrowing. C7-T1: Normal endplates. Normal disc height and morphology. Normal central canal and intervertebral neuroforamina. Normal visualized soft tissue structures. CT/Spine Cervical without Contras IMPRESSION: Multilevel degenerative changes above the evidence of acute osseous abnormality. Electronically Signed: Azeem Gold DO at 13:42 EDT , Service support ,
[2019-08-23 13:08] LABS: Absolute Lymphocyte Count 0.75 X10^3/uL (0.83-4.51); Absolute Neutrophil Count 23.6 X10^3/uL (2.0-7.7); Basophil# 0.06 X10^3/uL; Basophil% 0.2 % (0-1); Eosinophil# 0.01 X10^3/uL; Hematocrit 30.5 % (37-47); Hemoglobin 10.5 g/dL (12.0-15.0); Lymphocyte # 0.75 X10^3/ul (4.0); Lymphocyte % 2.8 % (19-41); Mean Corp Hgb Conc 34.4 g/dL (32-36); Mean Corpuscular Hgb 33.1 pg (27.0-32.0); Mean Corpuscular Volume 96.2 fL (81-99); Mean Platelet Vol. 10.2 fl (6.2-12.0); Monocyte% 6.4 % (0-10); NRBC Flagged by Analyzer 0 % (0-5); Neutrophil # 23.63 X10^3/uL (2.7-7.7); Neutrophil % 89.8 % (47-70); POSITIVE DIFFERENTIAL YES; Platelet Count 213 K/mm3 (150-450); RBC Distribution Width CV 13.3 % (11.6-14.6); RBC Distribution Width SD 47.2 fl (35.1-43.9); Red Blood Count 3.17 M/mm3 (4.2-5.4); White Blood Count 26.4 K/mm3 (4.4-11.0)
[2019-08-23 13:17] LABS: Differential Indicated SCAN CRITERIA MET
[2019-08-23 13:18] LABS: Anion Gap 8 (5-15); BUN 23 mg/dL (7-18); BUN/Creat Ratio 34.3 RATIO (10-20); Calcium,Total 8.3 mg/dL (8.5-10.1); Chloride 91 mmol/L (98-107); Creatinine, Serum 0.67 mg/dL (0.55-1.02); EST Glomerular Filtration Rate 92 mL/min (>60); Est Glom Filt Rate - Afr Amer 111 mL/min (>60); Glucose 125 mg/dL (74-106); Sodium Level 127 mmol/L (136-145)
--- NOTE | 2019-08-23 14:05 | ED.VISSUMM ---
- ER Visit Summary Date of Service: 08/23/19 Chief Complaint: [Fall] History of Present Illness: The patient is a 73 F [presents the emergency department with complaint of a fall that occurred prior to arrival in the emergency department. Patient states that she was going up steps when her foot caught on a baby gate causing her to lose her balance and fall backward striking her head on a tile floor. No loss of consciousness. She could not get up. The got a neighbor who then called the squad for her. Patient denies any chest pain or abdominal pain. Patient states that she is been falling more lately and is fallen 2 other times this week. She denies any fever or recent illness. She denies dysuria. She denies urgency or frequency. Patient denies any chest pain or abdominal pain.] Physical Examination: [HEFRANCISCO JAVIER-PERRNORBERTO, DBMI. Cranial nerves II through XII grossly intact. TMs clear. Mucous membranes moist. No adenopathy. Patient has a 2.5 cm laceration to the posterior occiput. No bony depressions or step-offs noted. Mild C-spine tenderness diffusely. No bony step-offs. Cardiovascular-regular rate and rhythm without murmur or ectopy Lungs-clear to auscultation, chest wall stable without crepitus or subcu emphysema Abdomen-normoactive bowel sounds, soft, nontender, no rebound or rigidity, no peritoneal signs. Extremities-intact ?4, normal range of motion, normal pulses, atraumatic] Test Results: [CBC with differential obtained showed an elevated white count of 26.9, hemoglobin 10, hematocrit 30, placed 213. Chemistry showed a sodium 127, potassium 3.0, chloride 91, CO2 28, BUN 23, creatinine 0.62 and glucose 125. Urinalysis is pending. CT scan of the brain without contrast showed a left frontal lobe subdural hematoma measuring approximately 7 mm without any midline shift. CT of the C-spine showed degenerative changes otherwise nothing acute.] Emergency Department Course and Treatment: [Patient was advised of findings. She is requesting to go at [facility] given that we do not have neurosurgery billable here. Laceration repair-wound of the scalp sterilely draped and prepped. Wound cleansed with Shur-Clens and irrigated with copious saline. Using 1% like and with epi a total of 4 cc used anesthetize the area. Using 4-0 nylon a total of 3 single ruptured sutures placed with good wound edge approximation. Patient tolerated procedure well. Case discussed with [facility] ED physician who accepted transfer of patient to their facility.] Treatment Plan: [Transfer to [facility].] Disposition: [Transfer] Impression: [Mechanical fall Closed head injury with subdural hematoma Scalp laceration 2.5 cm-simple repair Leukocytosis Hyponatremia] This note was generated with [employer] dictation software. It may contain incorrect words, spelling, and punctuation that were not noted in review of the chart prior to signing ED Disposition - Plan for ED Patient: Referrals: Erica Richardson DO [Primary Care Provider] -
[2019-08-23 14:06] LABS: Color, Urine Amber (Yellow); Glucose, Dipstick Normal (Normal); Ketone-Dipstick 15 mg/dl (Negative); Leukocyte Esterase-Dipstick 25 /ul (Negative); Nitrite-Dipstick Positive (Negative); Occult Blood-Urine 150 /ul (Negative); Protein-Dipstick 100 mg/dl (Negative); Urine Bilirubin Dipstick 1 mg/dL (Negative); Urine Clarity Cloudy (Clear); Urine Urobilinogen 1 mg/dl (Normal)
--- NOTE | 2019-08-23 14:06 | NURSING ---
CALLED [facility] FOR TRANSFER. DR MANCILLA TALKED TO DR PUGA
[2019-08-23 14:09] VITALS: BP 134/71; PULSE 105; RESP 18; O2SAT 94
[2019-08-23] MEDS: 0.9% Normal Saline 1,000 ML 150 ML IV (14:24)
[2019-08-23] MEDS: LORazepam 2 MG/ML Syringe 1 MG IV (14:25)
[2019-08-23 14:34] LABS: Bacteria 3+ /hpf (None Seen); Mucous, Urine 1+ /hpf (<or=2+); Red Blood Cells-Urine 10-25 SEEN /hpf (0-5); Squamous Epithelial Cells - UA 0-5 SEEN /hpf (5-10); White Blood Cells 0-5 SEEN /hpf (0-5)
--- NOTE | 2019-08-23 14:55 | NURSING ---
1447 CALLED [facility]YSIC[facility]. ETA IS 1 HR
[2019-08-24 11:19] LABS: Pathologist Review Reviewed
== END 2019-08-23 16:52 | disposition short-term general hospital (02) ==
PROVIDERS: Emergency Provider Emergency Medicine; PCP Family Medicine
DX: S01.01XA Laceration without foreign body of scalp, initial encounter (principal); S06.5X9A Traumatic subdural hemorrhage with loss of consciousness of unspecified duration, initial encounter; W01.0XXA Fall on same level from slipping, tripping and stumbling without subsequent striking against object, initial encounter; D72.829 Elevated white blood cell count, unspecified; E87.1 Hypo-osmolality and hyponatremia
CPT/HCPCS: 12001; 36591; 70450; 72125; 80048; 81001; 85025; 96361; 96374; 99285; J7030; P9612; A4216

== ENCOUNTER 2019-09-01 15:43 | Inpatient (IN) | payer MEDICARE, BC, SELFPAY ==
[2019-09-01 16:00] VITALS: BP 126/79; PULSE 85; RESP 18; TEMP 36.8; O2SAT 98; BMI 23.9
[2019-09-01] MEDS: Senna/Docusate Sodium 1 Tablet 2 TABLET PO (18:41)
[2019-09-01 20:06] VITALS: PULSE 94; O2SAT 97
[2019-09-01] MEDS: Nortriptyline 25 MG Capsule 100 MG PO (20:32)
[2019-09-01] MEDS: oxyCODONE 5 MG Tablet 10 MG PO (20:32)
[2019-09-01] MEDS: clonazePAM 1 MG Tablet PO (20:33)
[2019-09-01] MEDS: Famotidine 20 MG Tablet PO (20:34)
--- NOTE | 2019-09-01 21:57 | PCM.HP.STD ---
Problem List (1) Debility Status: Acute (2) Fall Status: Acute (3) Subdural hematoma Status: Acute (4) Hyponatremia Status: Acute (5) Hypokalemia Status: Acute (6) Scalp laceration Status: Acute (7) Urinary tract infection Status: Acute (8) Multiple rib fractures Status: Chronic (9) Encephalopathy Status: Acute (10) Pancreatitis Status: Acute (11) Hypertension Status: Chronic (12) Alcohol abuse Status: Chronic (13) Anemia Status: Chronic (14) Hypomagnesemia Status: Chronic (15) GERD (gastroesophageal reflux disease) Status: Chronic (16) Hypothyroidism Status: Chronic (17) Tobacco abuse Status: Chronic (18) Breast cancer Status: Chronic (19) Melanoma Status: Chronic (20) Opioid dependence Status: Chronic (21) Benzodiazepine dependence Status: Chronic History of Present Illness Date of Admission: 09/01/19 Chief Complaint: Here for rehabilitation, strengthening, prior to discharge home alone. The patient is a 73 year old Female with below past medical history presented to [facility] Emergency Department 08/23/2019 with fall. 08/23/2019 CT brain showed small left frontal lobe subdural hematoma, atrophy, white matter disease. 08/23/2019 CT cervical spine multilevel degenerative changes, no fracture, no dislocation. Hit head on floor, unable to get up. Falling frequent, Third fall in 1 week. WBC 26.9, Hemoglobin 10, Hematocrit 30, Plaet 213. Sodium 127, Potassium 3.0, BUN 23, Cr 0.62. UA pending. Scalp laceration repaired with 3 sutures. Transfer to [facility] for neurosurgical care. 08/23/2019 Admit to [facility]. Patient likes to mix [place], Klonopin, alcohol together, then fall down per daughter. Frequent falls her baseline. Mild pancreatitis noted, probably secondary to alcohol intake. Consult Neurosurgery. 08/24/2019 Klonopin, [place] restarted to prevent withdrawal. Ceftriaxone for urinary tract infection. Replace electrolytes. Subdural hematoma managed conservatively. Old T12 compression fracture noted. COVID-19 Negative. 08/31/2019 WBC improving. Cefdinir 300MG twice daily for urinary tract infection. PT/OT recommended assisted facility for short term rehabilitation. Patient refused at first but changed her mind. 09/01/2019 Admit to TCU with debility, here for rehabilitation, strengthening, prior to discharge home alone. Past Medical History Past Medical History (Chronic Problems): Chronic Problems (Last Reviewed 05/19/19 @ 08:[address] Avni Pacheco MD) Multiple rib fractures (Chronic) Hypertension (Chronic) Alcohol abuse (Chronic) Anemia (Chronic) Hypomagnesemia (Chronic) GERD (gastroesophageal reflux disease) (Chronic) Hypothyroidism (Chronic) Tobacco abuse (Chronic) Breast cancer (Chronic) Melanoma (Chronic) Opioid dependence (Chronic) Benzodiazepine dependence (Chronic) Hypothyroidism (acquired) (Chronic) Continues on replacement therapy of Synthyroid 125mcg daily. States she does not feel bad when she is able to sleep at night but recently with her health issues she feels she is sleeping more restless. Labs reviewed and is in range. no change in regimen Vitamin D deficiency (Chronic) Continues on vitamin d replacement. Review of recent labs indicates now in range with replacement of vit D 2000 daily. Calcium in range. SCeduled for bone density in 1-2 months. Reports BMD good without osteoporosis. Medical History: Medical History (Last Reviewed 05/19/19 @ 08:[address] 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 Pneumonia J18.9 Rheumatoid arthritis M06.9 Skin cancer C44.90 HTN (hypertension) I10 Allergies bacitracin [From Neosporin ([id number])] Allergy (Unknown, Verified 08/23/19 12:03) Unknown diphenhydramine [From Benadryl] Allergy (Unknown, Verified 08/23/19 12:03) Unknown neomycin [From Neosporin (wnw-wog-phiol)] Allergy (Unknown, Verified 08/23/19 12:03) Unknown polymyxin B [From Neosporin (zre-yqa-csxky)] Allergy (Unknown, Verified 08/23/19 12:03) Unknown Home Medications: Ambulatory Orders Medication Instructions Recorded aspirin 81 mg tablet,delayed 81 mg PO QDAY 05/01/17 release calcium polycarbophil 625 mg tablet See Rx Instructions PO .COMPLEX 05/01/17 cholecalciferol (vitamin D3) 25 1,000 unit PO QDAY cap 05/01/17 mcg (1,000 unit) capsule clonazepam 1 mg tablet 1 mg PO 5X/DAY tab 05/01/17 docusate sodium 100 mg capsule See Rx Instructions PO BID 05/01/17 famotidine 20 mg tablet 20 mg PO QHS 05/01/17 hydrocodone 5 mg-acetaminophen 325 1 tab PO Q6H 05/01/17 mg tablet indapamide 1.25 mg tablet 1.25 mg PO QAM 05/01/17 letrozole 2.5 mg tablet 2.5 mg PO QDAY 05/01/17 methylcellulose (laxative) 500 mg 500 mg PO ONCE 05/01/17 tablet nortriptyline 50 mg capsule 100 mg PO QHS cap 05/01/17 pregabalin 100 mg capsule 100 mg PO TID 05/01/17 pyridoxine (vitamin B6) 100 mg 100 mg PO QDAY 05/01/17 tablet vitamins A,C,B-gwlt-uketvi 14,320 1 cap PO DAILY 05/01/17 unit-226 mg-200 unit capsule calcitriol 0.5 mcg capsule 0.5 mcg PO QDAY #90 cap 04/09/18 Synthroid 125 mcg tablet 125 mcg PO DAILY #90 tab NS 04/29/18 Docusate Sodium [Colace] 100 mg PO DAILY #20 cap 02/13/19 Potassium Chloride [K-Dur] 20 meq PO DAILY #10 tab 05/19/19 Surgical History: Surgical History (Last Reviewed 04/29/18 @ 08:35 by Cyndi Jimenez) H/O mastectomy Z98.890, Z90.10 H/O thyroidectomy E89.0 Status post glaucoma surgery Z98.83 Surgical History: mastectomy - Excision Melanoma, reduction of fracture, Thyroidectomy., - - E Psychiatric History: Anxiety, Depression 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 Smoking Status: Former smoker Tobacco Use: Cigarettes Alcohol: Heavy Drugs: - - Prescription [place], Clonazepam. - *Family History Maternal Family History: Family History (Last Reviewed 04/29/18 @ 08:35 by Cyndi Jimenez) Unknown Thyroid disorder Cancer High cholesterol Arthritis Paternal Family History: Family History (Last Reviewed 04/29/18 @ 08:35 by Cyndi Jimenez) Unknown Thyroid disorder Cancer High cholesterol Arthritis History Items: Hypertension, - - Migraine. Review of Systems Constitutional: Denies: Chills, Fever, Weight Change HEENT: Denies: Head Aches, Sinus Congestion, Sinus Drainage Cardiovascular: Denies: Chest Pain, Palpitations Respiratory: Denies: Cough, Shortness of breath at rest, Sputum production Gastrointestinal: Denies: Abdominal Pain, Nausea, Vomiting Genitourinary: Denies: Dysuria Musculoskeletal: Denies: Joint Pain, Joint Tenderness Skin: Denies: Rash, Wounds Neurological: Denies: Numbness, Tingling, Focal weakness Psychiatric: Denies: Anxiety, Depression, Homicidal Ideations, Suicidal Ideations Hematologic/ Lymphatic: Denies: Easy Bruising, Easy Bleeding VTE Information - Inpt Only VTE Present on Admission: No VTE Mechan Device Prophylaxis: Knee High SPENCER Hose VTE Pharm Prophylaxis ordered?: No Reason prophylaxis not ordered:: Medical Contraindication Patient Problems: Active and Suspected Problems (Last Reviewed 05/19/19 @ 08:[address] Avni Pacheco MD) Debility (Acute) Fall (Acute) Subdural hematoma (Acute) Hyponatremia (Acute) Hypokalemia (Acute) Scalp laceration (Acute) Urinary tract infection (Acute) Encephalopathy (Acute) Pancreatitis (Acute) - Physical Exam Vitals/I&O's: Vital Signs Temp Pulse Resp BP Pulse Ox 98.3 F 94 18 126/79 H 97 09/01/19 16:00 09/01/19 20:06 09/01/19 16:00 09/01/19 16:00 09/01/19 20:06 Oxygen Delivery Method Room Air Weight: 67.33 kg Body Mass Index (BMI) 23.9 Finger Stick Blood Glucose 111 General: Alert, Oriented x3, Cooperative HEENT: Atraumatic, PERRLA, EOMI, Normocephalic Neck: Supple, No JVD, Negative Carotid Bruits Lungs: Clear to auscultation, Normal air movement Cardiovascular: Regular rate, No murmurs Abdomen: Bowel Sounds Present, Soft, Non Tender Extremities: No edema, Capillary Refill Less than 3 Seconds Skin: No rashes, No breakdown Musculoskeletal: No Tenderness to Palpation of Joints or Extremities Neurological: Cranial nerves II-XII grossly intact Psych/Mental Status: Normal Affect, Appropriate Microbiology Past 72 Hours 05/12/20 18:30 Mucosa - Nasopharyngeal Coronavirus COVID-19 PCR - Final Laboratory Results 09/01/19 18:30: COVID-19 ([facility]) Cancelled Current Medications Calcitriol (Rocaltrol) 0.5 mcg PO DAILY [facility] Clonazepam (Klonopin) 1 mg PO 5X/DAY PRN PRN Reason: ANXIETY Last Admin: 09/01/19 20:33 Dose: 1 mg Documented by: Famotidine (Pepcid) 20 mg PO QHS [facility] Last Admin: 09/01/19 20:34 Dose: 20 mg Documented by: Letrozole (Femara) 2.5 mg PO QDAY [facility] Levothyroxine Sodium (Synthroid) 125 mcg PO DAILY [facility] Lisinopril (Zestril) 10 mg PO DAILY [facility] Nortriptyline HCl (Pamelor) 100 mg PO QHS [facility] Last Admin: 09/01/19 20:32 Dose: 100 mg Documented by: Oxycodone HCl (Oxyir) 10 mg PO Q6H PRN PRN PRN Reason: Pain Score 6-10/10 Last Admin: 09/01/19 20:32 Dose: 10 mg Documented by: Potassium Chloride (K-Dur) 20 meq PO QODAY@0800 [facility] Senna/Docusate Sodium (Senokot-S, Monica-Colace) 2 tablet PO BID [facility] Last Admin: 09/01/19 18:41 Dose: 2 tablet Documented by: Tuberculin PPD (Tubersol, Aplisol, Ppd) 5 tu ID X1 ONE Stop: 09/02/19 10:01 Tuberculin PPD (Tubersol, Aplisol, Ppd) 5 tu ID X1 ONE Stop: 09/09/19 10:01 Assessment/Plan All Active Problems (Last Reviewed 05/19/19 @ 08:[address] Avni Pacheco MD) Debility (Acute) Fall (Acute) Subdural hematoma (Acute) Hyponatremia (Acute) Hypokalemia (Acute) Scalp laceration (Acute) Urinary tract infection (Acute) Encephalopathy (Acute) Pancreatitis (Acute) History of recent fall (Acute) 73 year old female with below past medical history hospitalized for subdural hematoma, managed conservatively, complicated by urinary tract infection, hyponatremia, hypokalemia, opioid dependence, benzodiazepine dependence, alcohol dependence, admitted to TCU with debility, here for rehabilitation, strengthening, prior to discharge home alone. Debility - PT/OT. Cognition - ST. Pain - Tylenol 1000MG Q6H PRN pain (1-5), Oxycodone 10MG Q6H PRN pain (6-10). Bowel - Miralax 17GM daily, senna/colace 2 tablets BID, Dulcolax 10MG daily PRN, Magnesium Citrate 300ML PO x 1 bottle. Adult immunization - Administer Prevnar 13, Pneumovax 23, Fluzone as appropriate. DVT prophylaxis - Hold, recent Subdural hematoma. Hyperparathyroidism - Calcitriol 0.5MG daily. Anxiety/Benzodiazepine dependence - Clonazepam 1MG PO 5x/day PRN, consider working with PCP to slowly taper off Clonazepam. GERD - Famotidine 20MG QHS. Breast cancer - Letrozole 2.5MG daily. Hypothyroidism - Levothyroxine 125MCG daily. Hypertension - Lisinopril 10MG daily. Insomnia - Nortriptyline 100MG QHS, consider working with PCP to slowly taper off Nortriptyline due to anticholinergic side effects. Hypokalemia - KCL 20MEQ every other day, monitor K. Subdural hematoma - conservative management. Alcohol abuse - consider working with PCP to assist in alcohol management.
[2019-09-02] MEDS: oxyCODONE 5 MG Tablet 10 MG PO ×3 (05:27→21:40)
[2019-09-02] MEDS: Senna/Docusate Sodium 1 Tablet 2 TABLET PO ×2 (05:27→17:37)
[2019-09-02] MEDS: clonazePAM 1 MG Tablet PO ×3 (05:27→21:40)
[2019-09-02] MEDS: Levothyroxine 125 MCG Tablet PO (05:27)
[2019-09-02] MEDS: Lisinopril 10 MG Tablet PO (05:27)
[2019-09-02] MEDS: Calcitriol 0.25 MCG Capsule 0.5 MCG PO (05:27)
[2019-09-02] MEDS: Menthol/Lanolin/Calamine/Znox 113 GM Tube 1 APPLIC TOPICAL ×2 (05:28→21:46)
[2019-09-02 05:29] VITALS: BP 134/76; PULSE 104; RESP 18; TEMP 36.4; O2SAT 96
[2019-09-02 05:51] LABS: Absolute Lymphocyte Count 1.71 X10^3/uL (0.83-4.51); Absolute Neutrophil Count 15.7 X10^3/uL (2.0-7.7); Basophil# 0.09 X10^3/uL; Basophil% 0.4 % (0-1); Eosinophil# 0.48 X10^3/uL; Eosinophils% 2.4 % (0-5); Hematocrit 29.6 % (37-47); Hemoglobin 9.7 g/dL (12.0-15.0); Lymphocyte # 1.71 X10^3/ul (4.0); Lymphocyte % 8.5 % (19-41); Mean Corp Hgb Conc 32.8 g/dL (32-36); Mean Corpuscular Hgb 32.2 pg (27.0-32.0); Mean Corpuscular Volume 98.3 fL (81-99); Mean Platelet Vol. 9.8 fl (6.2-12.0); Monocyte# 1.06 X10^3/uL; Monocyte% 5.3 % (0-10); NRBC Flagged by Analyzer 0 % (0-5); Neutrophil % 78.6 % (47-70); Platelet Count 480 K/mm3 (150-450); RBC Distribution Width CV 13.9 % (11.6-14.6); RBC Distribution Width SD 50.4 fl (35.1-43.9); Red Blood Count 3.01 M/mm3 (4.2-5.4)
[2019-09-02 06:05] LABS: Anion Gap 10 (5-15); BUN 13 mg/dL (7-18); BUN/Creat Ratio 22.6 RATIO (10-20); Calcium,Total 8.6 mg/dL (8.5-10.1); Chloride 101 mmol/L (98-107); Creatinine, Serum 0.57 mg/dL (0.55-1.02); EST Glomerular Filtration Rate 110 mL/min (>60); Est Glom Filt Rate - Afr Amer 133 mL/min (>60); Glucose 117 mg/dL (74-106); Potassium 3.8 mmol/L (3.5-5.1); Sodium Level 135 mmol/L (136-145)
--- NOTE | 2019-09-02 09:08 | CASEMGMT ---
Addendum entered by Jossie Montez 09/02/19 11:32: IDT agreeable for pt to remain longer. Spoke with pt about recommendation, but pt has a right to leave. Physician stated it would be AMA. Explained AMA. Pt upset and asked how much longer. SW explained IDT reviews pts daily and will work with pt on a safe DC plan and date. Pt reluctant but agreed to stay, but doesn't know how much long. Will continue to follow. Original Note: Social Work Discussed pt's code status. Pt would like like full code. MOLST form completed and placed in chart. Initial assessment completed. Per chart review, pt has alcohol abuse, opioid dependence, pancreatitis, depression and anxiety. Inquired these topics to pt. Pt stated she drinks a glass or two of wine when gets frustrated, but that is sporadic. Pt denied any further alcohol use. Pt denied opioid use. Pt stated she has depression and anxiety, is on medications, and those are effective. Pt stated she lived at home with her , but when she went to the hospital her children put her into [place] d/t his Dementia, but did not tell her prior to doing so. The plan is for the pt to remain in [place]. Pt stated she was independent prior but did not drive. drove and she directed him where to go. Pt stated she has fallen multiple times, and would like [facility] and [facility] aide resources. Resources provided. Pt's had dtr, Beth Marx as her HCPOA. Per pt's dx, discussed Palliative Care. Pt agreeable to referral. Referral made to [facility]. Explained Medicare benefit. Pt already insisting on discharging home 09/02, stating the [place]'s physician said she only needed to be in TCU for two days. Explained typically pt's remain longer than that. Will discuss with IDT. Will continue to follow. LAURE NgW
[2019-09-02] MEDS: Iron Polysaccharide Complex 150 MG CAPSULE PO (09:25)
[2019-09-02 09:27] VITALS: PULSE 87; RESP 16; O2SAT 98
[2019-09-02] MEDS: Tuberculin,Purif.prot.deriv. 50 TU/ML Vial 5 ML ID (10:42)
--- NOTE | 2019-09-02 10:50 | NURSING ---
sutures removed today per order, 3 sutures in total, pt tolerated procedure well.
--- NOTE | 2019-09-02 12:11 | NURSING ---
Daughter Patricia was called for daily update per pt request. Patricia reported that [place], pt's has dementia so Patricia would like to be the one notified for updates. Patricia informed this nurse that pt called her asking her to sneak in her stronger pain medication for her. Patricia stated she did not do that but to be aware if she gets deliveries. Patricia stated pt has had problems with substance abuse in the past. RN aware of new information.
[2019-09-02 13:37] VITALS: BP 103/73; PULSE 89; RESP 18; TEMP 37.3; O2SAT 98
[2019-09-02] MEDS: Acetaminophen 500 MG Tablet 1000 MG PO (13:39)
--- NOTE | 2019-09-02 14:55 | PHA.CONS_ITS ---
<Cheri Bajwa - Last Filed: 09/02/19 14:55> Progress Note - Pharmacy Subjective: TCU Admission Objective: Allergies bacitracin [From Neosporin ([id number])] Allergy (Unknown, Verified 08/23/19 12:03) Unknown diphenhydramine [From Benadryl] Allergy (Unknown, Verified 08/23/19 12:03) Unknown neomycin [From Neosporin ([id number]-[id number])] Allergy (Unknown, Verified 08/23/19 12:03) Unknown polymyxin B [From Neosporin ([id number]-xej-[id number])] Allergy (Unknown, Verified 08/23/19 12:03) Unknown Current Medications Generic Name Dose Route Start Last Admin Trade Name Freq PRN Reason Stop Dose Admin Acetaminophen 1,000 mg 09/01/19 22:19 09/02/19 13:39 Tylenol PO 1,000 mg Q6H PRN PRN Administration Pain Score 1-5/10 Bisacodyl 10 mg 09/01/19 22:20 Dulcolax PO DAILY PRN Constipation Calamine/Phenol 1 applic 09/02/19 06:00 09/02/19 05:28 Calmoseptine Ointment TOPICAL 1 applicatio 0600,2200 [facility] Administration Protocol Calcitriol 0.5 mcg 09/02/19 06:00 09/02/19 05:27 Rocaltrol PO 0.5 mcg DAILY [facility] Administration Clonazepam 1 mg 09/01/19 16:17 09/02/19 13:39 Klonopin PO 1 mg 5X/DAY PRN Administration ANXIETY Famotidine 20 mg 09/01/19 22:00 09/01/19 20:34 Pepcid PO 20 mg QHS [facility] Administration Heparin Sodium (Beef Lung) 50 units 09/02/19 03:57 IV UD PRN Port-a-Cath (VAD)Heparin Flush Letrozole 2.5 mg 09/01/19 16:30 Femara PO QDAY [facility] Levothyroxine Sodium 125 mcg 09/02/19 06:00 09/02/19 05:27 Synthroid PO 125 mcg DAILY [facility] Administration Lisinopril 10 mg 09/02/19 06:00 09/02/19 05:27 Zestril PO 10 mg DAILY [facility] Administration Multi-Ingredient Cream 1 applic 09/02/19 22:00 Eucerin TOPICAL HS [facility] Protocol Nortriptyline HCl 100 mg 09/01/19 22:00 09/01/19 20:32 Pamelor PO 100 mg QHS [facility] Administration Nutritional Formula (Lactose Free) 120 ml 09/02/19 06:00 09/02/19 11:07 Ensure Enlive PO 120 ml 4X/DAY [facility] Administration Oxycodone HCl 10 mg 09/01/19 16:44 09/02/19 13:39 Oxyir PO 10 mg Q6H PRN PRN Administration Pain Score 6-10/10 Polyethylene Glycol 17 gm 09/02/19 06:00 09/02/19 05:23 Miralax PO Not Given DAILY [facility] Polysaccharide Iron Complex 150 mg 09/02/19 08:00 09/02/19 09:25 Ferrex 150 PO 150 mg DAILYCM [facility] Administration Potassium Chloride 20 meq 09/03/19 08:00 K-Dur PO QODAY@0800 [facility] Senna/Docusate Sodium 2 tablet 09/01/19 18:00 09/02/19 05:27 Senokot-S, Monica-Colace PO 2 tablet BID [facility] Administration Sodium Chloride 10 - 40 ml 09/02/19 03:57 IV UD PRN Port-a-Cath (VAD) Flush Sodium Chloride 10 - 40 ml 09/02/19 03:57 0.9% Nacl (Sterile) Posiflush IV UD PRN Port access or dressing change Tuberculin PPD 5 tu 09/09/19 10:00 Tubersol, Aplisol, Ppd ID 09/09/19 10:01 X1 ONE Problem List (Last Reviewed 05/19/19 @ 08:[address] Avni Pacheco MD) Debility (Acute) Fall (Acute) Subdural hematoma (Acute) Hyponatremia (Acute) Hypokalemia (Acute) Scalp laceration (Acute) Urinary tract infection (Acute) Multiple rib fractures (Chronic) Encephalopathy (Acute) Pancreatitis (Acute) Hypertension (Chronic) Alcohol abuse (Chronic) Anemia (Chronic) Hypomagnesemia (Chronic) GERD (gastroesophageal reflux disease) (Chronic) Hypothyroidism (Chronic) Tobacco abuse (Chronic) Breast cancer (Chronic) Melanoma (Chronic) Opioid dependence (Chronic) Benzodiazepine dependence (Chronic) Vital Signs Temp Pulse Resp BP Pulse Ox 99.2 F H 89 18 103/73 98 09/02/19 13:37 09/02/19 13:37 09/02/19 13:37 09/02/19 13:37 09/02/19 13:37 Oxygen Delivery Method Room Air Weight: 67.33 kg Body Mass Index (BMI) 23.9 Finger Stick Blood Glucose 111 Sodium 135 mmol/L (136-145) L 09/02/19 05:05 Potassium 3.8 mmol/L (3.5-5.1) 09/02/19 05:05 Chloride 101 mmol/L (98-107) 09/02/19 05:05 Carbon Dioxide 24.0 mmol/L (21.0-32.0) 09/02/19 05:05 Anion Gap 10 (5-15) 09/02/19 05:05 BUN 13 mg/dL (7-18) 09/02/19 05:05 Creatinine 0.57 mg/dL (0.55-1.02) 09/02/19 05:05 Est GFR (MDRD) Af Amer 133 mL/min (>60) 09/02/19 05:05 Est GFR (MDRD) Non-Af 110 mL/min (>60) 09/02/19 05:05 BUN/Creatinine Ratio 22.6 RATIO (10-20) H 09/02/19 05:05 Glucose 117 mg/dL (74-106) H 09/02/19 05:05 Assessment/Plan: 1. Pain: acetaminophen 1000mg PO Q6H PRN pain 1-5/10 and oxycodone 10mg PO Q6H PRN pain 6-10/10. Please continue to monitor for increased pain, PRN usage, constipation and respiratory depression. 2. Hyperparathyroidism: calcitriol 0.5mcg PO daily. Please continue to monitor calcium and vitamin D levels. 3. Breast cancer: letrozole 0.5mg PO daily. Please continue to monitor for arthalgias, BP and hot flashes. 4. GERD: famotidine 20mg PO QHS. Please continue to monitor renal function and S/S of GERD. *5. Hypothyroidism: levothyroxine 125mcg PO daily. Please consider ordering a TSH now and then annually as clinically appropriate. Last level from 04/2018. Thanks. Please continue to monitor for S/S of hypo/hyperthyroidism. 6. Hypertension: lisinopril 10mg PO daily. Please continue to monitor BP, potassium and renal function. 7. Hypokalemia: potassium chloride 20mEq every other day. Please continue to monitor potassium levels. 8. Anemia (hemoglobin 9.7): Ferrex 150mg PO DAILYCM. Please continue to monitor hemoglobin and for dark stools. Psychotropic Medications: 1. Anxiety/benzodiazepine dependence: clonazepam 1mg PO 5x/day PRN anxiety. Please see physician note regarding GDR. 2. Insomnia: nortriptyline 100mg PO QHS. Please see physician note regarding GDR. Unnecessary Medications: None Bowel Regimen: Miralax 17gm PO daily, senna/docusate 2T PO BID, bisacodyl 10mg PO daily PRN constipation. Please continue to monitor for constipation and PRN usage. Date of Note:: 09/02/19 - Provider Comments Provider responsibility: Provider responsible to enter orders to implement recommendations <Lenny Perez Chi - Last Filed: 09/02/19 17:11> Progress Note - Pharmacy Subjective: [] Objective: Allergies bacitracin [From Neosporin ([id number])] Allergy (Unknown, Verified 08/23/19 12:03) Unknown diphenhydramine [From Benadryl] Allergy (Unknown, Verified 08/23/19 12:03) Unknown neomycin [From Neosporin ([id number])] Allergy (Unknown, Verified 08/23/19 12:03) Unknown polymyxin B [From Neosporin (aeo-[id number])] Allergy (Unknown, Verified 08/23/19 12:03) Unknown Current Medications Generic Name Dose Route Start Last Admin Trade Name Freq PRN Reason Stop Dose Admin Acetaminophen 1,000 mg 09/01/19 22:19 09/02/19 13:39 Tylenol PO 1,000 mg Q6H PRN PRN Administration Pain Score 1-5/10 Bisacodyl 10 mg 09/01/19 22:20 Dulcolax PO DAILY PRN Constipation Calamine/Phenol 1 applic 09/02/19 06:00 09/02/19 05:28 Calmoseptine Ointment TOPICAL 1 applicatio 0600,2200 OSM[facility] Administration Protocol Calcitriol 0.5 mcg 09/02/19 06:00 09/02/19 05:27 Rocaltrol PO 0.5 mcg DAILY [facility] Administration Clonazepam 1 mg 09/01/19 16:17 09/02/19 13:39 Klonopin PO 1 mg 5X/DAY PRN Administration ANXIETY Famotidine 20 mg 09/01/19 22:00 09/01/19 20:34 Pepcid PO 20 mg QHS [facility] Administration Heparin Sodium (Beef Lung) 50 units 09/02/19 03:57 IV UD PRN Port-a-Cath (VAD)Heparin Flush Letrozole 2.5 mg 09/01/19 16:30 Femara PO QDAY [facility] Levothyroxine Sodium 125 mcg 09/02/19 06:00 09/02/19 05:27 Synthroid PO 125 mcg DAILY [facility] Administration Lisinopril 10 mg 09/02/19 06:00 09/02/19 05:27 Zestril PO 10 mg DAILY [facility] Administration Multi-Ingredient Cream 1 applic 09/02/19 22:00 Eucerin TOPICAL HS [facility] Protocol Nortriptyline HCl 100 mg 09/01/19 22:00 09/01/19 20:32 Pamelor PO 100 mg QHS [facility] Administration Nutritional Formula (Lactose Free) 120 ml 09/02/19 06:00 09/02/19 11:07 Ensure Enlive PO 120 ml 4X/DAY [facility] Administration Oxycodone HCl 10 mg 09/01/19 16:44 09/02/19 13:39 Oxyir PO 10 mg Q6H PRN PRN Administration Pain Score 6-10/10 Polyethylene Glycol 17 gm 09/02/19 06:00 09/02/19 05:23 Miralax PO Not Given DAILY [facility] Polysaccharide Iron Complex 150 mg 09/02/19 08:00 09/02/19 09:25 Ferrex 150 PO 150 mg DAILYCM [facility] Administration Potassium Chloride 20 meq 09/03/19 08:00 K-Dur PO QODAY@0800 [facility] Senna/Docusate Sodium 2 tablet 09/01/19 18:00 09/02/19 05:27 Senokot-S, Monica-Colace PO 2 tablet BID [facility] Administration Sodium Chloride 10 - 40 ml 09/02/19 03:57 IV UD PRN Port-a-Cath (VAD) Flush Sodium Chloride 10 - 40 ml 09/02/19 03:57 0.9% Nacl (Sterile) Posiflush IV UD PRN Port access or dressing change Tuberculin PPD 5 tu 09/09/19 10:00 Tubersol, Aplisol, Ppd ID 09/09/19 10:01 X1 ONE Problem List (Last Reviewed 05/19/19 @ 08:[address] Avni Pacheco MD) Debility (Acute) Fall (Acute) Subdural hematoma (Acute) Hyponatremia (Acute) Hypokalemia (Acute) Scalp laceration (Acute) Urinary tract infection (Acute) Multiple rib fractures (Chronic) Encephalopathy (Acute) Pancreatitis (Acute) Hypertension (Chronic) Alcohol abuse (Chronic) Anemia (Chronic) Hypomagnesemia (Chronic) GERD (gastroesophageal reflux disease) (Chronic) Hypothyroidism (Chronic) Tobacco abuse (Chronic) Breast cancer (Chronic) Melanoma (Chronic) Opioid dependence (Chronic) Benzodiazepine dependence (Chronic) Vital Signs Temp Pulse Resp BP Pulse Ox 99.2 F H 89 18 103/73 98 09/02/19 13:37 09/02/19 13:37 09/02/19 13:37 09/02/19 13:37 09/02/19 13:37 Oxygen Delivery Method Room Air Weight: 67.33 kg Body Mass Index (BMI) 23.9 Finger Stick Blood Glucose 111 Sodium 135 mmol/L (136-145) L 09/02/19 05:05 Potassium 3.8 mmol/L (3.5-5.1) 09/02/19 05:05 Chloride 101 mmol/L (98-107) 09/02/19 05:05 Carbon Dioxide 24.0 mmol/L (21.0-32.0) 09/02/19 05:05 Anion Gap 10 (5-15) 09/02/19 05:05 BUN 13 mg/dL (7-18) 09/02/19 05:05 Creatinine 0.57 mg/dL (0.55-1.02) 09/02/19 05:05 Est GFR (MDRD) Af Amer 133 mL/min (>60) 09/02/19 05:05 Est GFR (MDRD) Non-Af 110 mL/min (>60) 09/02/19 05:05 BUN/Creatinine Ratio 22.6 RATIO (10-20) H 09/02/19 05:05 Glucose 117 mg/dL (74-106) H 09/02/19 05:05 Assessment/Plan: Psychotropic Medications: Unnecessary Medications: Bowel Regimen: - Provider Comments Provider responsibility: Provider responsible to enter orders to implement recommendations Provider Comments to Recommendations by Pharmacy: Agree
[2019-09-02] MEDS: Famotidine 20 MG Tablet PO (21:42)
[2019-09-02] MEDS: Nortriptyline 25 MG Capsule 100 MG PO (21:42)
[2019-09-03 05:20] VITALS: BP 117/75; PULSE 85; RESP 16; TEMP 36.9; O2SAT 96
[2019-09-03] MEDS: Senna/Docusate Sodium 1 Tablet 2 TABLET PO ×2 (05:23→17:38)
[2019-09-03] MEDS: Lisinopril 10 MG Tablet PO (05:23)
[2019-09-03] MEDS: Calcitriol 0.25 MCG Capsule 0.5 MCG PO (05:23)
[2019-09-03] MEDS: Levothyroxine 125 MCG Tablet PO (05:23)
[2019-09-03] MEDS: Polyethylene Glycol 3350 17 GM PACKET PO (05:23)
[2019-09-03] MEDS: Menthol/Lanolin/Calamine/Znox 113 GM Tube 1 APPLIC TOPICAL ×2 (05:24→20:30)
[2019-09-03] MEDS: clonazePAM 1 MG Tablet PO ×3 (05:27→21:40)
[2019-09-03] MEDS: oxyCODONE 5 MG Tablet 10 MG PO ×3 (05:27→21:40)
[2019-09-03 06:03] LABS: Absolute Lymphocyte Count 1.81 X10^3/uL (0.83-4.51); Absolute Neutrophil Count 14.9 X10^3/uL (2.0-7.7); Basophil# 0.11 X10^3/uL; Basophil% 0.6 % (0-1); Eosinophil# 0.54 X10^3/uL; Eosinophils% 2.8 % (0-5); Hematocrit 33.1 % (37-47); Lymphocyte # 1.81 X10^3/ul (4.0); Lymphocyte % 9.5 % (19-41); Mean Corp Hgb Conc 33.2 g/dL (32-36); Mean Corpuscular Hgb 32.5 pg (27.0-32.0); Mean Corpuscular Volume 97.9 fL (81-99); Mean Platelet Vol. 9.9 fl (6.2-12.0); Monocyte# 0.99 X10^3/uL; Monocyte% 5.2 % (0-10); NRBC Flagged by Analyzer 0 % (0-5); Neutrophil # 14.87 X10^3/uL (2.7-7.7); Neutrophil % 77.6 % (47-70); Platelet Count 525 K/mm3 (150-450); RBC Distribution Width SD 50.5 fl (35.1-43.9); Red Blood Count 3.38 M/mm3 (4.2-5.4); White Blood Count 19.2 K/mm3 (4.4-11.0)
[2019-09-03 06:26] LABS: Anion Gap 9 (5-15); BUN 14 mg/dL (7-18); BUN/Creat Ratio 21.1 RATIO (10-20); Chloride 101 mmol/L (98-107); Creatinine, Serum 0.66 mg/dL (0.55-1.02); EST Glomerular Filtration Rate 93 mL/min (>60); Est Glom Filt Rate - Afr Amer 113 mL/min (>60); Glucose 113 mg/dL (74-106); Potassium 4.2 mmol/L (3.5-5.1); Sodium Level 135 mmol/L (136-145)
[2019-09-03] MEDS: Iron Polysaccharide Complex 150 MG CAPSULE PO (07:58)
--- NOTE | 2019-09-03 13:48 | CASEMGMT ---
Addendum entered by Jossie Montez 09/03/19 14:07: Spoke with dtr who is very understanding of AMA regulations, pt's current wishes, and personality traits. Dtr stated she has no intention of picking up pt to DC home. Her and the family would like her to get rehab as long as possible. Dtr expressed pt exaggerating stories, telling lies, and dtr has called the police for wellness checks as well as APS several times. Family understands pt is not safe at home alone, but pt has refused HHC and AL in the past. Dtr explained pt has 6 steep steps to enter the home. SW explained pt is in room isolation until 09/13 and would not be able to attempt steps until after that date, but therapy is working on endurance, strength and safety awareness. Confirmed care plan meeting with dtr 09/08. Dtr stated she will speak with pt and confirm she is not approving of an AMA DC and will not pick her up until IDT sets DC date. Explained Medicare benefit and guidelines to continue to stay skilled - including participating in therapy. Dtr understood. Dtr very appreciative of SW call. Will continue to follow. Original Note: Social Work Spoke with pt about pt requesting to DC. Reiterated will not DC pt and pt has rights to DC AMA. Reexplained AMA. Pt upset again, but says she will see what she wants to do. SW offered to call dtr to explain - pt provided permission. Will contact dtr. LAURE Ng
[2019-09-03 15:42] VITALS: BP 122/76; PULSE 97; RESP 18; TEMP 36.4; O2SAT 98
--- NOTE | 2019-09-03 15:45 | NURSING ---
Pt's daughter Patricia called in and stated pt called her sister and said I am having problems seeing, especially in her right eye, I cannot read the newspaper. This nurse went to assess pt. When asked if pt was having trouble seeing she stated yes my vision is blurred. When asked when this started she stated it happened a couple weeks ago when she was at another hospital after they gave her eye drops and it has been blurry ever since but states she has an eye doctor appointment set up for when she goes home. Face/smile symmetrical, arms symmetrical, speech oriented and appropriate, VS WNL, pt stated she feels fine. When asked if she had reported vision issues to staff pt stated she did not tell staff. Patricia was called and notified of conversation with pt. Dr. Perez updated.
[2019-09-03] MEDS: Nortriptyline 25 MG Capsule 100 MG PO (20:27)
[2019-09-03] MEDS: Famotidine 20 MG Tablet PO (20:27)
[2019-09-04] MEDS: Calcitriol 0.25 MCG Capsule 0.5 MCG PO (04:53)
[2019-09-04] MEDS: Levothyroxine 125 MCG Tablet PO (04:53)
[2019-09-04] MEDS: Senna/Docusate Sodium 1 Tablet 2 TABLET PO (04:53)
[2019-09-04] MEDS: Lisinopril 10 MG Tablet PO (04:53)
[2019-09-04] MEDS: Menthol/Lanolin/Calamine/Znox 113 GM Tube 1 APPLIC TOPICAL ×2 (04:57→20:31)
[2019-09-04 05:17] VITALS: BP 112/79; PULSE 86; RESP 16; TEMP 36.3; O2SAT 96
[2019-09-04 06:02] LABS: Absolute Neutrophil Count 10.2 X10^3/uL (2.0-7.7); Basophil# 0.06 X10^3/uL; Basophil% 0.4 % (0-1); Eosinophil# 0.38 X10^3/uL; Eosinophils% 2.8 % (0-5); Hematocrit 30.8 % (37-47); Hemoglobin 10.1 g/dL (12.0-15.0); Lymphocyte % 11.1 % (19-41); Mean Corp Hgb Conc 32.8 g/dL (32-36); Mean Corpuscular Hgb 32.7 pg (27.0-32.0); Mean Corpuscular Volume 99.7 fL (81-99); Mean Platelet Vol. 10.1 fl (6.2-12.0); Monocyte# 0.89 X10^3/uL; Monocyte% 6.6 % (0-10); NRBC Flagged by Analyzer 0 % (0-5); Neutrophil # 10.24 X10^3/uL (2.7-7.7); Neutrophil % 76.1 % (47-70); Platelet Count 460 K/mm3 (150-450); RBC Distribution Width CV 14.1 % (11.6-14.6); RBC Distribution Width SD 50.4 fl (35.1-43.9); Red Blood Count 3.09 M/mm3 (4.2-5.4); White Blood Count 13.5 K/mm3 (4.4-11.0)
[2019-09-04] MEDS: Iron Polysaccharide Complex 150 MG CAPSULE PO (07:40)
[2019-09-04] MEDS: oxyCODONE 5 MG Tablet 10 MG PO ×3 (07:47→21:52)
[2019-09-04] MEDS: clonazePAM 1 MG Tablet PO ×3 (07:47→21:53)
[2019-09-04 09:00] LABS: Anion Gap 8 (5-15); BUN 11 mg/dL (7-18); Calcium,Total 8.8 mg/dL (8.5-10.1); Chloride 102 mmol/L (98-107); Creatinine, Serum 0.58 mg/dL (0.55-1.02); EST Glomerular Filtration Rate 109 mL/min (>60); Est Glom Filt Rate - Afr Amer 132 mL/min (>60); Glucose 114 mg/dL (74-106); Potassium 4.1 mmol/L (3.5-5.1); Sodium Level 134 mmol/L (136-145)
[2019-09-04 10:00] VITALS: RESP 16; O2SAT 97
[2019-09-04 14:06] VITALS: BP 108/65; PULSE 90; RESP 20; TEMP 36.6; O2SAT 99
[2019-09-04] MEDS: Nortriptyline 25 MG Capsule 100 MG PO (20:35)
[2019-09-04] MEDS: Famotidine 20 MG Tablet PO (20:36)
--- NOTE | 2019-09-04 23:18 | NURSING ---
09/04/19 at this nurse performed a observation of mood and behavior, pt denies any abusive or harmful acts. Pt states she, respects herself too much to harm self. Her daughter called in and reported pt threats to, slit throat if not out of hospital by Saturday (09/06/19). This nurse does not observe any negative behaviors at this time, pt pleasant. Will continue to monitor.
[2019-09-05] MEDS: Calcitriol 0.25 MCG Capsule 0.5 MCG PO (05:08)
[2019-09-05] MEDS: Menthol/Lanolin/Calamine/Znox 113 GM Tube 1 APPLIC TOPICAL ×2 (05:09→20:10)
[2019-09-05] MEDS: Levothyroxine 125 MCG Tablet PO (05:09)
[2019-09-05] MEDS: Lisinopril 10 MG Tablet PO (05:09)
[2019-09-05] MEDS: oxyCODONE 5 MG Tablet 10 MG PO ×3 (05:14→20:48)
[2019-09-05] MEDS: clonazePAM 1 MG Tablet PO ×3 (05:14→20:48)
[2019-09-05 05:17] VITALS: BP 117/64; PULSE 80; RESP 16; TEMP 36.7; O2SAT 93
[2019-09-05 06:43] LABS: Absolute Neutrophil Count 7.2 X10^3/uL (2.0-7.7); Basophil# 0.06 X10^3/uL; Basophil% 0.6 % (0-1); Eosinophil# 0.33 X10^3/uL; Eosinophils% 3.3 % (0-5); Hemoglobin 9.4 g/dL (12.0-15.0); Lymphocyte % 13.9 % (19-41); Mean Corp Hgb Conc 32.4 g/dL (32-36); Mean Corpuscular Hgb 32.5 pg (27.0-32.0); Mean Corpuscular Volume 100.3 fL (81-99); Mean Platelet Vol. 10.2 fl (6.2-12.0); Monocyte# 0.82 X10^3/uL; Monocyte% 8.1 % (0-10); NRBC Flagged by Analyzer 0 % (0-5); Neutrophil # 7.23 X10^3/uL (2.7-7.7); Neutrophil % 71.8 % (47-70); Platelet Count 414 K/mm3 (150-450); Red Blood Count 2.89 M/mm3 (4.2-5.4); White Blood Count 10.1 K/mm3 (4.4-11.0)
[2019-09-05 07:11] LABS: Anion Gap 9 (5-15); BUN 12 mg/dL (7-18); Calcium,Total 8.6 mg/dL (8.5-10.1); Chloride 100 mmol/L (98-107); Creatinine, Serum 0.63 mg/dL (0.55-1.02); EST Glomerular Filtration Rate 98 mL/min (>60); Est Glom Filt Rate - Afr Amer 119 mL/min (>60); Glucose 112 mg/dL (74-106); Potassium 3.7 mmol/L (3.5-5.1); Sodium Level 134 mmol/L (136-145)
[2019-09-05] MEDS: Iron Polysaccharide Complex 150 MG CAPSULE PO (08:08)
[2019-09-05 16:07] VITALS: BP 122/73; PULSE 89; RESP 18; TEMP 36.2; O2SAT 96
--- NOTE | 2019-09-05 19:04 | NURSING ---
PT DAUGHTER CALLED IN FOR PT UPDATE. GIVEN AND THANKFUL FOR THE UPDATE.
[2019-09-05] MEDS: Nortriptyline 25 MG Capsule 100 MG PO (20:13)
[2019-09-05] MEDS: Famotidine 20 MG Tablet PO (20:14)
[2019-09-06 05:21] VITALS: BP 146/80; PULSE 84; RESP 16; TEMP 36.6; O2SAT 95
[2019-09-06] MEDS: Menthol/Lanolin/Calamine/Znox 113 GM Tube 1 APPLIC TOPICAL ×2 (05:23→20:24)
[2019-09-06] MEDS: oxyCODONE 5 MG Tablet 10 MG PO ×3 (05:24→20:23)
[2019-09-06] MEDS: clonazePAM 1 MG Tablet PO ×3 (05:24→20:23)
[2019-09-06] MEDS: Levothyroxine 125 MCG Tablet PO (05:25)
[2019-09-06] MEDS: Calcitriol 0.25 MCG Capsule 0.5 MCG PO (05:25)
[2019-09-06] MEDS: Lisinopril 10 MG Tablet PO (05:25)
--- NOTE | 2019-09-06 06:27 | PCA ---
Pt was scheduled for a shower this morning, asked pt about getting in the shower she refused and said she would do it at home. pt said she is unsure if her daughter is coming to pick her up today for discharge. I explained to her that i had not heard of any discharge information about her today. She said i don't care i'm going home. I also offered pt a shampoo of her hair which she declined offer and said she would do all that when she got home because she needed a blow dryer, an a curler. pt washed her face only.
[2019-09-06] MEDS: Iron Polysaccharide Complex 150 MG CAPSULE PO (08:00)
[2019-09-06 10:00] VITALS: PULSE 76; RESP 18; O2SAT 92
[2019-09-06 15:14] VITALS: BP 110/62; PULSE 81; RESP 20; TEMP 36.3; O2SAT 97
--- NOTE | 2019-09-06 15:42 | NURSING ---
daughter called and given update on pt.
[2019-09-06] MEDS: Senna/Docusate Sodium 1 Tablet 2 TABLET PO (17:14)
[2019-09-06] MEDS: Famotidine 20 MG Tablet PO (20:27)
[2019-09-06] MEDS: Nortriptyline 25 MG Capsule 100 MG PO (20:28)
[2019-09-07] MEDS: Calcitriol 0.25 MCG Capsule 0.5 MCG PO (04:40)
[2019-09-07] MEDS: oxyCODONE 5 MG Tablet 10 MG PO ×3 (04:43→20:09)
[2019-09-07] MEDS: Lisinopril 10 MG Tablet PO (04:45)
[2019-09-07] MEDS: Levothyroxine 125 MCG Tablet PO (04:45)
[2019-09-07] MEDS: Senna/Docusate Sodium 1 Tablet 2 TABLET PO ×2 (04:45→17:45)
[2019-09-07] MEDS: Menthol/Lanolin/Calamine/Znox 113 GM Tube 1 APPLIC TOPICAL ×2 (04:47→20:11)
[2019-09-07] MEDS: clonazePAM 1 MG Tablet PO ×3 (06:37→22:12)
[2019-09-07 06:38] VITALS: BP 135/85; PULSE 92; RESP 14; TEMP 36.7; O2SAT 96
[2019-09-07] MEDS: Iron Polysaccharide Complex 150 MG CAPSULE PO (07:33)
[2019-09-07 15:01] VITALS: BP 97/65; PULSE 84; RESP 16; TEMP 35.9; O2SAT 98
--- NOTE | 2019-09-07 18:27 | NURSING ---
pt keeps self transferring despite reeducation, chair alarm remains in use
[2019-09-07] MEDS: Famotidine 20 MG Tablet PO (20:09)
[2019-09-07] MEDS: Nortriptyline 25 MG Capsule 100 MG PO (20:09)
[2019-09-07 20:17] VITALS: PULSE 81; O2SAT 93
[2019-09-08] MEDS: Levothyroxine 125 MCG Tablet PO (05:35)
[2019-09-08] MEDS: Senna/Docusate Sodium 1 Tablet 2 TABLET PO ×2 (05:35→17:06)
[2019-09-08] MEDS: oxyCODONE 5 MG Tablet 10 MG PO ×3 (05:35→19:44)
[2019-09-08] MEDS: Lisinopril 10 MG Tablet PO (05:35)
[2019-09-08] MEDS: Calcitriol 0.25 MCG Capsule 0.5 MCG PO (05:35)
[2019-09-08] MEDS: Menthol/Lanolin/Calamine/Znox 113 GM Tube 1 APPLIC TOPICAL ×2 (05:37→19:41)
[2019-09-08 05:39] VITALS: BP 139/84; PULSE 87; RESP 16; TEMP 36.1; O2SAT 98
[2019-09-08] MEDS: Iron Polysaccharide Complex 150 MG CAPSULE PO (09:13)
[2019-09-08] MEDS: clonazePAM 1 MG Tablet PO ×3 (09:13→22:17)
[2019-09-08 11:30] VITALS: PULSE 84; RESP 18; O2SAT 93
--- NOTE | 2019-09-08 14:01 | NURSING ---
Sisters, Sami Sosa, calls in and speaks to this RN. States she was talking to sister, the resident, on the phone earlier and the stated She was going to kill herself. She states that their father shot himself in the past and she is very worried for her sister. She states she has made comments like this in the past. This RN will have social media specialist, Anamika talk to her and address this.
[2019-09-08 14:19] VITALS: BP 124/73; PULSE 87; RESP 16; TEMP 36.8; O2SAT 99
--- NOTE | 2019-09-08 16:04 | NURSING ---
daughter called and up dated.
--- NOTE | 2019-09-08 16:14 | CASEMGMT ---
Social Work Notified by pt's sister that she was talking to pt on the phone and that was going to slit her wrists and her throat but then stated no, I would never do that. Received brief background of family and pt history from sister, and that pt has guns in the home, then proceeded to visit pt. SW completed MDS assessment earlier and pt did not respond to thoughts of hurting self. Met with patient. SW had open ended discussion with how pt's mood and stay in TCU thus far has been. Pt expressed overall she is down that she has needed to stay in TCU, and more so that her daughter originally agreed to come pick her up then but talked to someone and changed her mind. Pt also stated she just had a phone call with her daughter whom then hung up on her and that really frustrated her. She explained her and her dtr are very close, they do not have fights and this is their first disagreement. Pt explained she talks to her sister almost every day which she enjoys. Pt then became tearful and expressed the loss of her niece. Provided emotional support. She stated she just likes talking and it helps relieve her feelings, and feels she is being heard. SW validated her feelings, recognized pt for remaining in TCU and the progress she has made this last week. Offered continued time to talk with SW. Pt appreciative. Completed Lea Suicide Tool. Pt stated she does not have any thoughts of harming herself while she is here or at home. Pt did disclose she has guns in the home and has used them to downing with her father before, but would not use them to hurt herself. SW concluded pt is safe and does not active suicidal thoughts. Pt and SW has care plan meeting with dtr on the following day and will discuss with dtr if she can remove the guns from the home. Will continue to follow. Jossie Montez, LAURE MENDOZA
[2019-09-08] MEDS: Nortriptyline 25 MG Capsule 100 MG PO (19:43)
[2019-09-08] MEDS: Famotidine 20 MG Tablet PO (19:43)
[2019-09-09] MEDS: oxyCODONE 5 MG Tablet 10 MG PO ×4 (02:15→22:16)
[2019-09-09 04:00] VITALS: BP 115/70; PULSE 85; RESP 16; TEMP 36.9; O2SAT 95
[2019-09-09] MEDS: Menthol/Lanolin/Calamine/Znox 113 GM Tube 1 APPLIC TOPICAL ×2 (04:55→20:29)
[2019-09-09] MEDS: Levothyroxine 125 MCG Tablet PO (04:56)
[2019-09-09] MEDS: Lisinopril 10 MG Tablet PO (04:56)
[2019-09-09] MEDS: Calcitriol 0.25 MCG Capsule 0.5 MCG PO (04:56)
[2019-09-09] MEDS: Senna/Docusate Sodium 1 Tablet 2 TABLET PO ×2 (04:57→17:17)
[2019-09-09] MEDS: clonazePAM 1 MG Tablet PO ×3 (05:02→20:26)
[2019-09-09] MEDS: Iron Polysaccharide Complex 150 MG CAPSULE PO (07:54)
[2019-09-09] MEDS: Tuberculin,Purif.prot.deriv. 50 TU/ML Vial 5 ML ID (10:03)
--- NOTE | 2019-09-09 12:25 | CASEMGMT ---
Addendum entered by Jossie Montez 09/10/19 13:22: [facility] unable to accept pt. referred to [facility] - [facility]. Original Note: Social Work IDT met with patient and daughter via conference call for care plan meeting. Discussed patient's progress in therapy. Pt is mod I for bed mobility, transfers, sup. for ambulating 150in room with cane, using 2.5# wts on UE and LE. Pt is supervised for all ADLS. Recommending assistance with groceries, meals, laundry, cleaning; which pt agrees and is in contact with aides to assist at home. Pt did order a LifeAlert. Pt completed AFLA test, just needing assistance with higher level cog. tasks. Activities continuing with 1:1 visits, provided cards for [employer]. Pt is on a [facility] soft/thin liquid diet, with good intake and weight is 147.3 lbs. Pt is out of isolation 09/13. Explained Medicare benefit. Pt is ready to DC home. Dtr agreed to take pt home 09/10. Pt and IDT agreeable. Pt requesting [facility] PT/OT/ST. Referral made. No DME needs. Plan: DC home alone 09/10 with [facility] PT/OT/ST. NO DME. Jsosie Montez, LAURE CARRINGTONW
[2019-09-09 13:56] VITALS: BP 131/72; PULSE 69; RESP 16; TEMP 36.3; O2SAT 98
[2019-09-09 20:25] VITALS: PULSE 70; RESP 16; O2SAT 94
[2019-09-09] MEDS: Famotidine 20 MG Tablet 40 MG PO (20:27)
[2019-09-09] MEDS: Nortriptyline 25 MG Capsule 100 MG PO (20:27)
--- NOTE | 2019-09-09 20:45 | DCINST_ITS ---
- Discharge Diagnoses Current Active Problems: Current Active and Chronic Problems (Last Reviewed 05/19/19 @ 08:[address] Avni Pacehco MD) Debility (Acute) Fall (Acute) Subdural hematoma (Acute) Hyponatremia (Acute) Hypokalemia (Acute) Scalp laceration (Acute) Urinary tract infection (Acute) Multiple rib fractures (Chronic) Encephalopathy (Acute) Pancreatitis (Acute) Hypertension (Chronic) Alcohol abuse (Chronic) Anemia (Chronic) Hypomagnesemia (Chronic) GERD (gastroesophageal reflux disease) (Chronic) Hypothyroidism (Chronic) Tobacco abuse (Chronic) Breast cancer (Chronic) Melanoma (Chronic) Opioid dependence (Chronic) Benzodiazepine dependence (Chronic) You will use the following diet at home:: No restrictions, Regular Your food should be the consistency of: Regular Your liquids should be the consistency of: Regular/Thin Discharge Activity: Return to Normal Activity, May Shower, Use Walker Weight Bearing Status: Weight bearing as tolerated Call your doctor if you observe: Fever of 101 or Higher, Inability to urinate, Inability to have a bowel movement, Shortness of breath, Chest pain, Uncontrolled pain Allergies/Adverse Reactions: Allergies bacitracin [From Neosporin ([id number])] Allergy (Unknown, Verified 08/23/19 12:03) Unknown diphenhydramine [From Benadryl] Allergy (Unknown, Verified 08/23/19 12:03) Unknown neomycin [From Neosporin ([id number])] Allergy (Unknown, Verified 08/23/19 12:03) Unknown polymyxin B [From Neosporin ([id number])] Allergy (Unknown, Verified 08/23/19 12:03) Unknown Medications to take at Discharge clonazepam 1 mg tablet 1 mg PO 5X/DAY tab 05/01/17 famotidine 20 mg tablet 20 mg PO QHS 05/01/17 letrozole 2.5 mg tablet 2.5 mg PO QDAY 05/01/17 nortriptyline 50 mg capsule 100 mg PO QHS cap 05/01/17 calcitriol 0.5 mcg capsule 0.5 mcg PO QDAY #90 cap 04/09/18 Synthroid 125 mcg tablet 125 mcg PO DAILY #90 tab NS 04/29/18 Acetaminophen [Tylenol] 1,000 mg PO Q6H PRN PRN tablet 09/09/19 Iron Polysaccharide Complex [Ferrex 150] 150 mg PO DAILYCM #30 cap 09/09/19 Lisinopril [Zestril] 10 mg PO DAILY #30 tab 09/09/19 Menthol/Lanolin/Calamine/Znox [Calmoseptine Ointment] 1 applic TOPICAL 0600,2200 tube 09/09/19 Mineral Oil/Petrolatum,White [Eucerin] 1 applic TOPICAL HS jar 09/09/19 Oxycodone [Oxyir] 10 mg PO Q6H PRN PRN 7 Days #28 tablet 09/09/19 Peg 400/Hypromellose/Glycerin [Artificial Tears] 2 drop EACH EYE Q1H PRN bottle 09/09/19 Potassium Chloride [K-Dur] 20 meq PO DAILY #30 tab 09/09/19 The following prescriptions were given: Iron Polysaccharide Complex [Ferrex 150] 150 mg PO DAILYCM #30 cap Transmission Status: [facility] to [id number] Potassium Chloride [K-Dur] 20 meq PO DAILY #30 tab Transmission Status: [id number] Oxycodone [Oxyir] 10 mg PO Q6H PRN PRN 7 Days #28 tablet PRN Reason: Pain Score 6-10/10 Transmission Status: [facility]ceived [id number] Lisinopril [Zestril] 10 mg PO DAILY #30 tab Transmission Status: [id number] Primary Care Physician: Erica Richardson DO [Primary Care Provider] - Please follow up with your Primary Care Physician in: 1 week. Test Results: Test results from this visit will be discussed in further detail at your follow- up appointment, if applicable. Proposed Discharge Date: 09/11/19
--- NOTE | 2019-09-09 20:47 | PCM.DC.SUM ---
Discharge Date and Diagnosis - Problem List Patient Problems: Active and Suspected Problems (Last Reviewed 05/19/19 @ 08:[address] Avni Pacheco MD) Debility (Acute) Fall (Acute) Subdural hematoma (Acute) Hyponatremia (Acute) Hypokalemia (Acute) Scalp laceration (Acute) Urinary tract infection (Acute) Encephalopathy (Acute) Pancreatitis (Acute) Date of Admission: 09/01/19 Date of Discharge: 09/11/19 - Primary Discharge Diagnosis Acute Problems: Active Problems (Last Reviewed 05/19/19 @ 08:[address] Avni Pacheco MD) Debility (Acute) Fall (Acute) Subdural hematoma (Acute) Hyponatremia (Acute) Hypokalemia (Acute) Scalp laceration (Acute) Urinary tract infection (Acute) Encephalopathy (Acute) Pancreatitis (Acute) - Secondary Discharge Diagnosis Chronic Problems: Chronic Problems (Last Reviewed 05/19/19 @ 08:[address] Avni Pacheco MD) Multiple rib fractures (Chronic) Hypertension (Chronic) Alcohol abuse (Chronic) Anemia (Chronic) Hypomagnesemia (Chronic) GERD (gastroesophageal reflux disease) (Chronic) Hypothyroidism (Chronic) Tobacco abuse (Chronic) Breast cancer (Chronic) Melanoma (Chronic) Opioid dependence (Chronic) Benzodiazepine dependence (Chronic) Hypothyroidism (acquired) (Chronic) Continues on replacement therapy of Synthyroid 125mcg daily. States she does not feel bad when she is able to sleep at night but recently with her health issues she feels she is sleeping more restless. Labs reviewed and is in range. no change in regimen Vitamin D deficiency (Chronic) Continues on vitamin d replacement. Review of recent labs indicates now in range with replacement of vit D 2000 daily. Calcium in range. SCeduled for bone density in 1-2 months. Reports BMD good without osteoporosis. Hospital Course and Treatment Imaging Results: 09/01/19 16:14 Diet: Regular Diet Food consistency:: Mechanical Soft/Ground Liquid Consistency:: Regular/Thin Operations: None Procedures: None Summary of Care Provided: The patient is a 73 year old Female with below past medical history hospitalized for subdural hematoma, managed conservatively, complicated by urinary tract infection, hyponatremia, hypokalemia, opioid dependence, benzodiazepine dependence, alcohol dependence, admitted to TCU with debility, here for rehabilitation, strengthening, prior to discharge home alone. Discharge home alone, [facility] PT/OT/ST. Consider helping Romana taper off Clonazepam, Ellinger, Alcohol in near future. Patient Problems: Active and Suspected Problems (Last Reviewed 05/19/19 @ 08:[address] Avni Pacheco MD) Debility (Acute) Fall (Acute) Subdural hematoma (Acute) Hyponatremia (Acute) Hypokalemia (Acute) Scalp laceration (Acute) Urinary tract infection (Acute) Encephalopathy (Acute) Pancreatitis (Acute) - Physical Exam Vitals/I&O's: Vital Signs Temp Pulse Resp BP Pulse Ox 97.3 F L 70 16 131/72 H 94 09/09/19 13:56 09/09/19 20:25 09/09/19 20:25 09/09/19 13:56 09/09/19 20:25 Oxygen Delivery Method Room Air Weight: 66.791 kg Body Mass Index (BMI) 23.9 Finger Stick Blood Glucose 111 Intake and Output for Last 24 Hours 09/07/19 09/08/19 09/09/19 23:59 23:59 23:59 Intake Total 840 / 840 960 / 960 840 / 840 Balance 840 / 840 960 / 960 840 / 840 Current Medications Acetaminophen (Tylenol) 1,000 mg PO Q6H PRN PRN PRN Reason: Pain Score 1-5/10 Last Admin: 09/02/19 13:39 Dose: 1,000 mg Documented by: Bisacodyl (Dulcolax) 10 mg PO DAILY PRN PRN Reason: Constipation Calamine/Phenol (Calmoseptine Ointment) 1 applic TOPICAL 0600,2200 [facility]; Protocol Last Admin: 09/09/19 20:29 Dose: 1 applicatio Documented by: Calcitriol (Rocaltrol) 0.5 mcg PO DAILY [facility] Last Admin: 09/09/19 04:56 Dose: 0.5 mcg Documented by: Clonazepam (Klonopin) 1 mg PO 5X/DAY PRN PRN Reason: ANXIETY Last Admin: 09/09/19 20:26 Dose: 1 mg Documented by: Famotidine (Pepcid) 40 mg PO QHS [facility] Last Admin: 09/09/19 20:27 Dose: 40 mg Documented by: Heparin Sodium (Beef Lung) () 50 units IV UD PRN PRN Reason: Port-a-Cath (VAD)Heparin Flush Letrozole (Femara) 2.5 mg PO DAILY [facility] Last Admin: 09/09/19 05:57 Dose: 2.5 mg Documented by: Levothyroxine Sodium (Synthroid) 125 mcg PO DAILY [facility] Last Admin: 09/09/19 04:56 Dose: 125 mcg Documented by: Lisinopril (Zestril) 10 mg PO DAILY [facility] Last Admin: 09/09/19 04:56 Dose: 10 mg Documented by: Multi-Ingredient Cream (Eucerin) 1 applic TOPICAL HS [facility]; Protocol Last Admin: 09/09/19 20:30 Dose: 1 applicatio Documented by: Nortriptyline HCl (Pamelor) 100 mg PO QHS [facility] Last Admin: 09/09/19 20:27 Dose: 100 mg Documented by: Oxycodone HCl (Oxyir) 10 mg PO Q6H PRN PRN PRN Reason: Pain Score 6-10/10 Last Admin: 09/09/19 15:56 Dose: 10 mg Documented by: Polyethylene Glycol (Miralax) 17 gm PO DAILY [facility] Last Admin: 09/09/19 04:55 Dose: Not Given Documented by: Polysaccharide Iron Complex (Ferrex 150) 150 mg PO DAILYCM [facility] Last Admin: 09/09/19 07:54 Dose: 150 mg Documented by: Potassium Chloride (K-Dur) 20 meq PO QODAY@0800 [facility] Last Admin: 09/09/19 07:54 Dose: 20 meq Documented by: Senna/Docusate Sodium (Senokot-S, Monica-Colace) 2 tablet PO BID [facility] Last Admin: 09/09/19 17:17 Dose: 2 tablet Documented by: Sodium Chloride () 10 - 40 ml IV UD PRN PRN Reason: Port-a-Cath (VAD) Flush Sodium Chloride (0.9% Nacl (Sterile) Posiflush) 10 - 40 ml IV UD PRN PRN Reason: Port access or dressing change Discharge Diet: Soft diet - Mechanical. Discharge Activity: Return to Normal Activity, May Shower, Use Walker Weight Bearing Status: Weight bearing as tolerated Call your doctor if you observe: Fever of 101 or Higher, Inability to urinate, Inability to have a bowel movement, Shortness of breath, Chest pain, Uncontrolled pain Home Medications: Medications to take at Discharge clonazepam 1 mg tablet 1 mg PO 5X/DAY tab 05/01/17 famotidine 20 mg tablet 20 mg PO QHS 05/01/17 letrozole 2.5 mg tablet 2.5 mg PO QDAY 05/01/17 nortriptyline 50 mg capsule 100 mg PO QHS cap 05/01/17 calcitriol 0.5 mcg capsule 0.5 mcg PO QDAY #90 cap 04/09/18 Synthroid 125 mcg tablet 125 mcg PO DAILY #90 tab NS 04/29/18 Acetaminophen [Tylenol] 1,000 mg PO Q6H PRN PRN tablet 09/09/19 Iron Polysaccharide Complex [Ferrex 150] 150 mg PO DAILYCM #30 cap 09/09/19 Lisinopril [Zestril] 10 mg PO DAILY #30 tab 09/09/19 Menthol/Lanolin/Calamine/Znox [Calmoseptine Ointment] 1 applic TOPICAL 0600,2200 tube 09/09/19 Mineral Oil/Petrolatum,White [Eucerin] 1 applic TOPICAL HS jar 09/09/19 Oxycodone [Oxyir] 10 mg PO Q6H PRN PRN 7 Days #28 tablet 09/09/19 Peg 400/Hypromellose/Glycerin [Artificial Tears] 2 drop EACH EYE Q1H PRN bottle 09/09/19 Potassium Chloride [K-Dur] 20 meq PO DAILY #30 tab 09/09/19 Following Prescrptions Were Given to Patient: Iron Polysaccharide Complex [Ferrex 150] 150 mg PO DAILYCM #30 cap Transmission Status: [id number] Potassium Chloride [K-Dur] 20 meq PO DAILY #30 tab Transmission Status: [id number] Oxycodone [Oxyir] 10 mg PO Q6H PRN PRN 7 Days #28 tablet PRN Reason: Pain Score 6-10/10 Transmission Status: [id number] Lisinopril [Zestril] 10 mg PO DAILY #30 tab Transmission Status: [id number] Primary Care Physician: Erica Richardson DO [Primary Care Provider] - Please follow up with your Primary Care Physician in: 1 week. Disposition: Home with Home Health Minutes spent on discharge:: 35 Patient Condition:: Stable Medical Necessity - Tobacco Use Smoking Status: Former smoker Tobacco Use: Cigarettes Meaningful Use Info Meaningful Use Diagnoses (Choose all that apply): None applicable
[2019-09-10 04:15] VITALS: BP 148/78; PULSE 95; RESP 18; TEMP 36.8; O2SAT 94
[2019-09-10] MEDS: Menthol/Lanolin/Calamine/Znox 113 GM Tube 1 APPLIC TOPICAL ×2 (05:34→20:47)
[2019-09-10] MEDS: Calcitriol 0.25 MCG Capsule 0.5 MCG PO (05:35)
[2019-09-10] MEDS: Senna/Docusate Sodium 1 Tablet 2 TABLET PO ×2 (05:35→17:59)
[2019-09-10] MEDS: Levothyroxine 125 MCG Tablet PO (05:35)
[2019-09-10] MEDS: Lisinopril 10 MG Tablet PO (05:35)
[2019-09-10] MEDS: oxyCODONE 5 MG Tablet 10 MG PO ×3 (05:37→18:56)
[2019-09-10] MEDS: clonazePAM 1 MG Tablet PO ×3 (07:51→17:59)
[2019-09-10] MEDS: Iron Polysaccharide Complex 150 MG CAPSULE PO (07:51)
[2019-09-10 10:00] VITALS: PULSE 72; RESP 16; O2SAT 96
[2019-09-10 14:39] VITALS: BP 105/62; PULSE 85; RESP 16; TEMP 36.7; O2SAT 97
--- NOTE | 2019-09-10 15:13 | NURSING ---
Pt declined this nurse calling family to update because she just spoke with them.
[2019-09-10] MEDS: Nortriptyline 25 MG Capsule 100 MG PO (20:47)
[2019-09-10] MEDS: Famotidine 20 MG Tablet 40 MG PO (20:48)
[2019-09-11] MEDS: oxyCODONE 5 MG Tablet 10 MG PO ×2 (00:56→07:43)
[2019-09-11] MEDS: clonazePAM 1 MG Tablet PO ×2 (00:58→09:30)
[2019-09-11 03:20] VITALS: BP 136/78; PULSE 90; RESP 18; TEMP 36.6; O2SAT 95
[2019-09-11] MEDS: Menthol/Lanolin/Calamine/Znox 113 GM Tube 1 APPLIC TOPICAL (05:30)
[2019-09-11] MEDS: Calcitriol 0.25 MCG Capsule 0.5 MCG PO (05:31)
[2019-09-11] MEDS: Levothyroxine 125 MCG Tablet PO (05:31)
[2019-09-11] MEDS: Lisinopril 10 MG Tablet PO (05:31)
[2019-09-11] MEDS: Senna/Docusate Sodium 1 Tablet 2 TABLET PO (05:31)
[2019-09-11] MEDS: Iron Polysaccharide Complex 150 MG CAPSULE PO (07:28)
[2019-09-11 07:33] VITALS: PULSE 87; RESP 16; O2SAT 95
--- NOTE | 2019-09-11 09:49 | PCA ---
[patient keeps attempting to get up and ambulate around room with out calling out and asking for staff's assisting setting off personal alarm. staff is reminding staff that she still needs to ring for assistance when she wants to move around her room. pt agree's but don't comply with order.
[2019-09-11 10:38] VITALS: BP 96/67; PULSE 88; RESP 16; TEMP 36.6; O2SAT 94
== END 2019-09-11 11:00 | disposition home health service (06) | DRG 949 ==
PROVIDERS: Admitting Provider Family Medicine Geriatric Medicine; PCP Family Medicine; Referring Provider Family Medicine Geriatric Medicine; Visit Provider Family Medicine Geriatric Medicine
DX: S06.5X9D Traumatic subdural hemorrhage with loss of consciousness of unspecified duration, subsequent encounter (principal); F11.20 Opioid dependence, uncomplicated; F13.20 Sedative, hypnotic or anxiolytic dependence, uncomplicated; E87.1 Hypo-osmolality and hyponatremia; W19.XXXD Unspecified fall, subsequent encounter; K21.9 Gastro-esophageal reflux disease without esophagitis; Z23 Encounter for immunization; S01.01XD Laceration without foreign body of scalp, subsequent encounter; I10 Essential (primary) hypertension; C50.919 Malignant neoplasm of unspecified site of unspecified female breast; E03.9 Hypothyroidism, unspecified; F41.9 Anxiety disorder, unspecified; E78.1 Pure hyperglyceridemia; F32.9 Major depressive disorder, single episode, unspecified; M06.9 Rheumatoid arthritis, unspecified; M19.90 Unspecified osteoarthritis, unspecified site; F10.20 Alcohol dependence, uncomplicated; E21.3 Hyperparathyroidism, unspecified; E87.6 Hypokalemia; Z87.891 Personal history of nicotine dependence; Z87.440 Personal history of urinary (tract) infections
CPT/HCPCS: 36415; 80048; 85025; 87635; 92507; 92523; 97110; 97116; 97162; 97166; 97530; 97535; G0009; G2023; 90670; U0002; U0004

== ENCOUNTER → 2019-09-29 08:55 | Outpatient (CLI) | payer MEDICARE, BC, SELFPAY ==
[2019-09-01 16:00] VITALS: BMI 23.9
[2019-09-29 09:18] LABS: Absolute Lymphocyte Count 1.08 X10^3/uL (0.83-4.51); Basophil# 0.07 X10^3/uL; Basophil% 0.9 % (0-1); Eosinophil# 0.42 X10^3/uL; Eosinophils% 5.6 % (0-5); Hematocrit 35.8 % (37-47); Hemoglobin 11.7 g/dL (12.0-15.0); Lymphocyte # 1.08 X10^3/ul (4.0); Lymphocyte % 14.5 % (19-41); Mean Corp Hgb Conc 32.7 g/dL (32-36); Mean Corpuscular Hgb 31.4 pg (27.0-32.0); Mean Platelet Vol. 10.6 fl (6.2-12.0); Monocyte# 0.88 X10^3/uL; Monocyte% 11.8 % (0-10); NRBC Flagged by Analyzer 0 % (0-5); Neutrophil # 4.97 X10^3/uL (2.7-7.7); Neutrophil % 66.9 % (47-70); Platelet Count 310 K/mm3 (150-450); RBC Distribution Width CV 13.3 % (11.6-14.6); RBC Distribution Width SD 47.1 fl (35.1-43.9); Red Blood Count 3.73 M/mm3 (4.2-5.4); White Blood Count 7.4 K/mm3 (4.4-11.0)
[2019-09-29 09:42] LABS: ALB/GLOB Ratio 0.8 RATIO (0.9-2.4); AST(SGOT) 21 U/L (15-37); Alanine Aminotransfer ALT/SGPT 29 U/L (13-56); Albumin, Serum 3.5 g/dL (3.2-5.0); Alkaline Phosphatase 100 U/L (45-117); Anion Gap 9 (5-15); BUN 7 mg/dL (7-18); BUN/Creat Ratio 11.8 RATIO (10-20); Calcium,Total 8.9 mg/dL (8.5-10.1); Chloride 101 mmol/L (98-107); Cholesterol 166 mg/dL (200); Creatinine, Serum 0.59 mg/dL (0.55-1.02); EST Glomerular Filtration Rate 106 mL/min (>60); Est Glom Filt Rate - Afr Amer 128 mL/min (>60); Free T3 3.1 pg/mL (2.18-3.98); Globulin 4.2 g/dL (2.2-4.2); Glucose 92 mg/dL (74-106); High Density Lipoprotein 49 mg/dL; Potassium 3.3 mmol/L (3.5-5.1); Protein, Total 7.7 g/dL (6.4-8.2); Sodium Level 137 mmol/L (136-145); T4 Free Direct 1.31 ng/dL (0.76-1.46); Thyroid Stim Hormone (TSH) 2.34 uIU/mL (0.358-3.74); Triglycerides 209 mg/dL; Very Low Density Lipoprotein 42 mg/dL (5-40)
[2019-09-29 09:56] LABS: Vitamin D,25 Hydroxy 40.8 ng/mL
== END ==
PROVIDERS: PCP Family Medicine; Referring Provider Family Medicine; Visit Provider Family Medicine
DX: C50.919 Malignant neoplasm of unspecified site of unspecified female breast (principal); E03.9 Hypothyroidism, unspecified; E55.9 Vitamin D deficiency, unspecified; C43.9 Malignant melanoma of skin, unspecified; R53.83 Other fatigue; E78.5 Hyperlipidemia, unspecified
CPT/HCPCS: 36591; 80053; 80061; 82306; 84439; 84443; 84481; 85025; A4216

== ENCOUNTER → 2019-10-05 | Outpatient (CLI) | payer MEDICARE, BC, SELFPAY ==
[2019-09-01 16:00] VITALS: BMI 23.9
[2019-10-05 14:56] LABS: Bacteria 0 SEEN /hpf (None Seen); Red Blood Cells-Urine 0 SEEN /hpf (0-5); Squamous Epithelial Cells - UA 0 SEEN /hpf (5-10); White Blood Cells 0 SEEN /hpf (0-5)
[2019-10-05 19:04] LABS: Color, Urine Yellow (Yellow); Glucose, Dipstick Normal (Normal); Ketone-Dipstick Negative (Negative); Leukocyte Esterase-Dipstick Negative /ul (Negative); Nitrite-Dipstick Negative (Negative); Occult Blood-Urine Negative /ul (Negative); Protein-Dipstick Negative (Negative); Urine Bilirubin Dipstick Negative (Negative); Urine Clarity Clear (Clear); Urine Urobilinogen Normal (Normal)
[2019-10-05 19:15] LABS: Mucous, Urine 1+ /hpf (<or=2+)
== END | disposition home or self-care (01) ==
LOC: LABSPEC 14:49
PROVIDERS: PCP Family Medicine; Visit Provider Family Medicine
DX: R30.0 Dysuria (principal)
CPT/HCPCS: 81001; 82570; 87086

== ENCOUNTER → 2019-10-06 12:56 | Outpatient (CLI) | payer MEDICARE, BC, SELFPAY ==
[2019-09-01 16:00] VITALS: BMI 23.9
[2019-10-06 13:30] LABS: OXY Internal Control LINE = VALID (VALID); Oxycodone Drug Screen Negative (<100 ng/mL)
[2019-10-06 13:38] LABS: Amphetamine Urine VISTA NEGATIVE (<1000 ng/mL); Barbiturate Urine VISTA NEGATIVE (< 200 ng/mL); Benzodiazepine Urine VISTA NEGATIVE (< 200 ng/mL); Cocaine Urine VISTA NEGATIVE (< 300 ng/mL); Ecstacy Urine VISTA NEGATIVE (< 500 ng/mL); Methadone Urine VISTA NEGATIVE (< 300 ng/mL); PCP Urine VISTA NEGATIVE (< 25 ng/mL); THC Urine VISTA NEGATIVE (< 50 ng/mL); Vista UDS pH Range 7
== END ==
PROVIDERS: PCP Family Medicine; Visit Provider Family Medicine
DX: G89.4 Chronic pain syndrome (principal); Z51.81 Encounter for therapeutic drug level monitoring; Z91.89 Other specified personal risk factors, not elsewhere classified; Z79.891 Long term (current) use of opiate analgesic
CPT/HCPCS: 80307; 80365; G0480

== ENCOUNTER 2019-10-10 09:53 | Emergency (ER) | payer MEDICARE, BC, SELFPAY ==
[2019-09-01 16:00] VITALS: BMI 23.9
[2019-10-10 09:56] VITALS: BP 155/105; PULSE 98; RESP 16; TEMP 36.2; O2SAT 96; BMI 23.3
--- NOTE | 2019-10-10 10:24 | CT_ITS ---
STUDY: CT BRAIN WITHOUT CONTRAST REASON FOR EXAM: Female, 73 years old. HEAD TRAUMA- FALL LAC TO RIGHT FOREHEAD RADIATION DOSAGE (If Supplied By Facility): CTDIvol = ( 44.99 ) mGy, DLP = ( 796.11 ) mGycm TECHNIQUE: Transaxial CT imaging of the brain was performed without administration of intravenous contrast material. Individualized dose optimization techniques were used for this CT. COMPARISON: No relevant priors. FINDINGS: Mild left frontal scalp injury with subcutaneous emphysema. Normal calvarium. Mildly prominent ventricles. Normal extra-axial spaces for the patient''s age. Mild white matter microangiopathic ischemic changes of the cerebral hemispheres. Normal basal ganglia and thalami. Normal brainstem. Normal cerebellum. There is no intracranial hemorrhage. There are no findings of an acute ischemic infarction. Normal visualized paranasal sinuses. CT/Brain/Head without Contrast IMPRESSION: No acute intracranial pathology of the brain. Left frontal scalp injury. Electronically Signed: Shashank Dacosta DO at 10:56 EDT Tel [phone], Service support ,
--- NOTE | 2019-10-10 10:25 | ED.DCSUM_ITS ---
History of Present Illness Chief Complaint: Laceration Informant: Patient Onset: Today Narrative: Patient states that she tripped over her foot fall and struck her head on the lower part of the fireplace. No loss of conscious. She notes a laceration along the right hairline. She scratched her lens of her right eyeglass. She states that she was recently seen at [place] where she had a small area of bleeding on her brain. She is not on blood thinners. She denies any other injuries. She reports that her last tetanus was this year. Review of her chart shows that at the beginning of August she fell and there was a small left frontal subdural hematoma. Past Medical History - Allergies and Home Meds Allergies/Adverse Reactions: Allergies bacitracin [From Neosporin ([id number])] Allergy (Unknown, Verified 10/10/19 09:53) Unknown diphenhydramine [From Benadryl] Allergy (Unknown, Verified 10/10/19 09:53) Unknown neomycin [From Neosporin ([id number])] Allergy (Unknown, Verified 10/10/19 09:53) Unknown polymyxin B [From Neosporin ([id number])] Allergy (Unknown, Verified 10/10/19 09:53) Unknown Primary Care Physician: Erica Richardson DO [Primary Care Provider] - Surgical History: mastectomy - Excision Melanoma, reduction of fracture, Thyroidectomy., - - E Smoking Status: Former smoker - Family History Paternal Family History: Family History (Last Reviewed 04/29/18 @ 08:35 by Cyndi Jimenez) Unknown Thyroid disorder Cancer High cholesterol Arthritis Family History: Reports: Hypertension, - - Migraine. Review of Systems General: Denies: Chills, Fever, Sweats Eyes: Denies: Visual changes - bilaterally, Diplopia ENT: Denies: Rhinorrhea, Sore throat Cardiovascular: Denies: Chest pain, Palpitations Respiratory: Denies: Dyspnea, Cough, Dyspnea on exertion Gastrointestinal: Denies: Abdominal pain, Nausea, Vomiting, Diarrhea, Melena, Hematochezia Genitourinary: Denies: Dysuria, Hematuria, Frequency Musculoskeletal: Denies: Back pain, Extremity Pain Skin: Denies: Rash, Wounds Neurological: Denies: Headache, Weakness, Numbness Physical Exam Vital Signs/Narrative: Vital Signs Temp Pulse Resp BP Pulse Ox 10/10/19 09:56 97.1 F L 98 16 155/105 H 96 Inital Vital Signs reviewed: Yes General: Well nourished, Well developed, No Acute Distress Head: Normocephalic - There is a 4 cm linear laceration along the hairline on the right forehead. No bony depression., Trauma Eyes: Perrl, EOMI ENT: Moist mucous membranes, No rhinorrhea Neck: Supple, Nontender Cardiovascular: Regular rate, Regular rhythm, No murmurs Respiratory: No distress, CTA bilaterally, Chest nontender Abdomen: Soft, Nontender, Nondistended, Normal bowel sounds Back: Nontender, Normal Inspection Extremities: Nontender, No edema Skin: Normal color, No rash Neurological: Alert, Oriented x3, Cranial nerves II-XII grossly intact, Normal Strength, Normal Sensation Psychological: Normal affect, Normal Mood Diagnostic/Tx/Re-eval Clinical Impression(s) from Imaging Studies Brain CT 10/10/19 10:24 IMPRESSION: No acute intracranial pathology of the brain. Left frontal scalp injury. Electronically Signed: Shashank Dacosta DO at 10:56 EDT Tel [phone], Service support , - Medical Decision Making Wound was locally anesthetized using 1% lidocaine. It was washed with Shur- Clens and explored. It was closed using only 3 simple erupted 5-0 Ethilon sutures. There is a very straight linear cut and was well approximated. Stitches will need to be removed in 5 to 7 days. Return if worsening or concerns. ED Disposition - Plan for ED Patient: Disposition: Home or Assisted Living Diagnosis: Facial laceration, Head injury due to trauma Instructions: ED Laceration All Closures Referrals: Erica Richardson DO [Primary Care Provider] - (in 5-7 days for suture removal (Saturday if available would be optimal))
[2019-10-10 11:37] VITALS: BP 131/68; PULSE 80; RESP 16; O2SAT 97
--- NOTE | 2019-10-10 11:43 | ED.RN ---
REVIEWED D/C INSTRUCTIONS, FOLLOW UP CARE, AND S/S THAT WOULD WARRANT A RETURN TO THE ED WITH PT. PT VERBALIZED AN UNDERSTANDING AND DENIES FURTHER QUESTIONS FOR THIS RN. PT SKIN P/W/D, RESP EVEN AND UNLABORED, PT A&O X 3, NO DISTRESS NOTED. PT ASSISTED OUT OF ED IN WHEELCHAIR.
== END 2019-10-10 11:44 | disposition home or self-care (01) ==
PROVIDERS: Emergency Provider Emergency Medicine; PCP Family Medicine
DX: S01.81XA Laceration without foreign body of other part of head, initial encounter (principal); W01.198A Fall on same level from slipping, tripping and stumbling with subsequent striking against other object, initial encounter; Y93.9 Activity, unspecified; Y92.89 Other specified places as the place of occurrence of the external cause; Y99.9 Unspecified external cause status; Z82.49 Family history of ischemic heart disease and other diseases of the circulatory system; Z85.820 Personal history of malignant melanoma of skin; Z87.891 Personal history of nicotine dependence; Z88.8 Allergy status to other drugs, medicaments and biological substances
CPT/HCPCS: 12013; 70450; 99283

== ENCOUNTER → 2019-12-02 13:50 | Outpatient (CLI) | payer MEDICARE, BC, SELFPAY ==
[2019-12-02 14:02] LABS: Mucous, Urine 0 SEEN /hpf (<or=2+); Squamous Epithelial Cells - UA 0 SEEN /hpf (5-10)
[2019-12-02 17:17] LABS: Color, Urine Yellow (Yellow); Glucose, Dipstick Normal (Normal); Ketone-Dipstick Negative (Negative); Leukocyte Esterase-Dipstick 500 /ul (Negative); Nitrite-Dipstick Positive (Negative); Occult Blood-Urine 10 /ul (Negative); Protein-Dipstick Negative (Negative); Specific Gravity, Urine 1.015 (1.002-1.030); Urine Bilirubin Dipstick Negative (Negative); Urine Clarity Cloudy (Clear); Urine Urobilinogen Normal (Normal)
[2019-12-02 17:54] LABS: White Blood Cells 50-100 SEEN /hpf (0-5)
[2019-12-02 17:55] LABS: Amorphous Sediment 1+; Bacteria 2+ /hpf (None Seen); Calcium Oxalate Crystals Ur RARE /hpf (<or=2+); Red Blood Cells-Urine 0-5 SEEN /hpf (0-5)
[2019-12-02 18:11] LABS: Amphetamine Urine VISTA NEGATIVE (<1000 ng/mL); Barbiturate Urine VISTA NEGATIVE (< 200 ng/mL); Benzodiazepine Urine VISTA NEGATIVE (< 200 ng/mL); Cocaine Urine VISTA NEGATIVE (< 300 ng/mL); Ecstacy Urine VISTA NEGATIVE (< 500 ng/mL); Methadone Urine VISTA NEGATIVE (< 300 ng/mL); PCP Urine VISTA NEGATIVE (< 25 ng/mL); THC Urine VISTA NEGATIVE (< 50 ng/mL); Vista UDS pH Range 7
== END ==
PROVIDERS: PCP Family Medicine; Visit Provider Family Medicine
DX: G89.4 Chronic pain syndrome (principal); Z51.81 Encounter for therapeutic drug level monitoring; Z91.89 Other specified personal risk factors, not elsewhere classified; Z79.891 Long term (current) use of opiate analgesic; R30.0 Dysuria
CPT/HCPCS: 80307; 81001; 82570; 87086; 87088; 87186

== ENCOUNTER → 2019-12-31 09:37 | Outpatient (CLI) | payer MEDICARE, BC, SELFPAY ==
--- NOTE | 2019-12-31 09:45 | RAD_ITS ---
STUDY: X-RAY - LUMBAR SPINE REASON FOR EXAM: Female, 74 years old. Low back pain TECHNIQUE: 5 view(s) of the lumbar spine were obtained. COMPARISON: Prior study of 05/19/2019 FINDINGS: Normal lumbar lordosis. There is a mild mid lumbar levoscoliosis. There is a normal alignment of the vertebrae. There is old severe compression deformity of T12, stable in the interval. There is multi-level degenerative disc disease with multi-level disc space narrowing. There are calcified plaques of the abdominal aorta. RAD/L/S Spine Min 4 Views IMPRESSION: 1. Mild mid lumbar levoscoliosis. 2. Old severe compression deformity of T12, stable in the interval. 3. Multilevel disc space narrowing. 4. No evidence of acute fracture or lytic or blastic osseous process. Electronically Signed: Surjit Serrano MD at 19:58 EDT , Service support ,
== END ==
PROVIDERS: PCP Family Medicine; Referring Provider Family Medicine; Visit Provider Family Medicine
DX: M54.5 Low back pain (principal)
CPT/HCPCS: 72110

== ENCOUNTER 2020-03-10 22:41 | Observation (INO) | payer MEDICARE, BC, SELFPAY ==
[2020-03-10 22:43] VITALS: BP 129/76; PULSE 91; RESP 16; TEMP 36.8; O2SAT 94; BMI 23.8
--- NOTE | 2020-03-10 22:47 | ED.VIS.GEN ---
History of Present Illness Chief Complaint: Fall Narrative: 74-year-old female with history of EtOH abuse presents for evaluation after having a fall in which she could not get up off the floor. She did hit the right side of her head. She states she did not lose consciousness. She hit her life alert button and her neighbor came to get her so she did not spend a long time on the floor. She states she was unable to get up on her own. Per EMS they had already run on her house twice today because she had fallen and was too weak to get up. Patient states that she had not been drinking today but she also states when you live alone sometimes there is an occasion. She denies dizziness or lightheadedness, but does state that it is very often when she bends over that she falls over. She denies fever, chills, cough, nausea, vomiting, diarrhea. - Past Medical History (1) Encephalopathy Status: Chronic (2) Hypokalemia Status: Chronic (3) Hyponatremia Status: Chronic (4) Pancreatitis Status: Chronic Past Medical History - Allergies and Home Meds Allergies/Adverse Reactions: Allergies bacitracin [From Neosporin ([id number])] Allergy (Unknown, Verified 03/10/20 22:42) Unknown diphenhydramine [From Benadryl] Allergy (Unknown, Verified 03/10/20 22:42) Unknown neomycin [From Neosporin ([id number])] Allergy (Unknown, Verified 03/10/20 22:42) Unknown polymyxin B [From Neosporin ([id number])] Allergy (Unknown, Verified 03/10/20 22:42) Unknown Primary Care Physician: Erica Richardson DO [Primary Care Provider] - Prior records reviewed: Yes Past Medical History: - - Reviewed in problem list Surgical History: noncontributory, mastectomy - Excision Melanoma, reduction of fracture, Thyroidectomy. Lives: Alone Smoking Status: Former smoker Alcohol: Heavy Drugs: None - Family History Paternal Family History: Family History (Last Reviewed 04/29/18 @ 08:35 by Cyndi Jimenez) Unknown Thyroid disorder Cancer High cholesterol Arthritis Family History: Reports: Hypertension, - - Migraine. Review of Systems General: Reports: - - Generalized weakness. Denies: Chills, Fever, Sweats Eyes: Denies: Visual changes - bilaterally, Diplopia ENT: Denies: Rhinorrhea, Sore throat Cardiovascular: Denies: Chest pain, Palpitations Respiratory: Denies: Dyspnea, Cough, Dyspnea on exertion Gastrointestinal: Denies: Abdominal pain, Nausea, Vomiting, Diarrhea, Melena, Hematochezia Musculoskeletal: Denies: Myalgias, Arthralgias, Back pain, Extremity Pain Skin: Reports: - - Laceration right supraorbital area.. Denies: Rash, Abscess Neurological: Denies: Headache, Parasthesia, Numbness Psych: Denies: Depression, Anxiety Physical Exam Vital Signs/Narrative: Vital Signs Temp Pulse Resp BP Pulse Ox 03/10/20 22:43 98.3 F 91 16 129/76 H 94 Inital Vital Signs reviewed: Yes General: Unkempt, No Acute Distress Head: Tenderness, - - 3 cm laceration right supraorbital ridge. No active bleeding. No skull deformity. Eyes: Perrl, EOMI. Negative for: Pale conjunctiva ENT: Moist mucous membranes, No rhinorrhea Cardiovascular: Regular rate, Regular rhythm Respiratory: No distress, CTA bilaterally, Chest nontender Abdomen: Soft, Nontender, Nondistended Extremities: Nontender, No edema Skin: Normal color, No rash, - - Laceration as described above. Negative for: Jaundice Neurological: Alert, Oriented x3, Cranial nerves II-XII grossly intact Psychological: Normal affect, Normal Mood Diagnostic/Tx/Re-eval Clinical Impression(s) from Imaging Studies Brain CT 03/10/20 22:51 IMPRESSION: No acute intracranial abnormality. Chronic involutional and white matter changes. Individualized dose optimization techniques were used for this CT. at 2335 Reported and signed by: No Baker MD Electronically Signed: No Baker MD at 23:35 EST Tel , Service support , Cervical Spine CT 03/10/20 22:55 IMPRESSION: There is no definite acute fracture/dislocation. Degenerative changes. Electronically Signed: Danny Nair MD at 23:36 EST , Service support , Chest X-Ray 03/10/20 23:14 IMPRESSION: Normal x-ray examination of the chest. Electronically Signed: Emilie Cueva MD at 23:47 EST Tel , Service support , Laboratory Data 03/10/20 03/10/20 03/10/20 23:05 23:05 23:05 WBC 14.7 H RBC 4.07 L Hgb 13.3 Hct 40.2 MCV 98.8 MCH 32.7 H MCHC 33.1 RDW Std Deviation 50.8 H RDW Coeff of Felix 14.0 Plt Count 294 MPV 10.2 Immature Gran % (Auto) 1.500 H Neut % (Auto) 77.3 H Lymph % (Auto) 11.8 L Throckmorton % (Auto) 6.8 Eos % (Auto) 1.8 Baso % (Auto) 0.8 Absolute Neuts (auto) 11.3 H Absolute Lymphs (auto) 1.73 Nucleated RBC % 0 PT 13.9 INR 1.1 Sodium 141 Potassium 3.0 L Chloride 103 Carbon Dioxide 29.0 Anion Gap 9 BUN 19 H Creatinine 0.76 Estim Creat Clear Calc 46.90 Est GFR (MDRD) Af Amer 96 Est GFR (MDRD) Non-Af 80 BUN/Creatinine Ratio 25.1 H Glucose 112 H Calcium 8.8 Magnesium 2.0 Total Bilirubin 0.30 Direct Bilirubin 0.08 AST 26 ALT 30 Alkaline Phosphatase 105 Ammonia Troponin I < 0.015 Total Protein 7.9 Albumin 4.0 Globulin 3.9 Albumin/Globulin Ratio 1.0 TSH 2.72 Urine Color Urine Clarity Urine pH Ur Specific Calera Urine Protein Urine Glucose (UA) Urine Ketones Urine Occult Blood Urine Nitrite Urine Bilirubin Urine Urobilinogen Ur Leukocyte Esterase Urine RBC Urine WBC Ur Squamous Epith Cells Amorphous Sediment Urine Bacteria Urine Mucus Urine Opiates Screen Urine Methadone Screen Ur Barbiturates Screen Ur Phencyclidine Scrn Ur Amphetamines Screen U Methamphetamin-MDMA U Benzodiazepines Scrn Urine Cocaine Screen U Cannabinoids Screen Ur Drug Screen Comment Ethyl Alcohol 03/10/20 03/10/20 03/10/20 23:05 23:05 23:50 WBC RBC Hgb Hct MCV MCH MCHC RDW Std Deviation RDW Coeff of Felix Plt Count MPV Immature Gran % (Auto) Neut % (Auto) Lymph % (Auto) Th[place]mort[place] % (Auto) Eos % (Auto) Baso % (Auto) Absolute Neuts (auto) Absolute Lymphs (auto) Nucleated RBC % PT INR Sodium Potassium Chloride Carbon Dioxide Anion Gap BUN Creatinine Estim Creat Clear Calc Est GFR (MDRD) Af Amer Est GFR (MDRD) Non-Af BUN/Creatinine Ratio Glucose Calcium Magnesium Total Bilirubin Direct Bilirubin AST ALT Alkaline Phosphatase Ammonia 12.0 Troponin I Total Protein Albumin Globulin Albumin/Globulin Ratio TSH Urine Color Yellow Urine Clarity Clear Urine pH 6.0 Ur Specific [place] 1.015 Urine Protein Negative Urine Glucose (UA) Normal Urine Ketones Negative Urine Occult Blood 25 H Urine Nitrite Positive H Urine Bilirubin Negative Urine Urobilinogen Normal Ur Leukocyte Esterase 25 H Urine RBC 0-5 SEEN Urine WBC 0-5 SEEN Ur Squamous Epith Cells 0 SEEN Amorphous Sediment 1+ Urine Bacteria 3+ Urine Mucus 0 SEEN Urine Opiates Screen Urine Methadone Screen Ur Barbiturates Screen Ur Phencyclidine Scrn Ur Amphetamines Screen U Methamphetamin-MDMA U Benzodiazepines Scrn Urine Cocaine Screen U Cannabinoids Screen Ur Drug Screen Comment Ethyl Alcohol 148.0 03/10/20 23:50 WBC RBC Hgb Hct MCV MCH MCHC RDW Std Deviation RDW Coeff of Felix Plt Count MPV Immature Gran % (Auto) Neut % (Auto) Lymph % (Auto) Th[place]morton % (Auto) Eos % (Auto) Baso % (Auto) Absolute Neuts (auto) Absolute Lymphs (auto) Nucleated RBC % PT INR Sodium Potassium Chloride Carbon Dioxide Anion Gap BUN Creatinine Estim Creat Clear Calc Est GFR (MDRD) Af Amer Est GFR (MDRD) Non-Af BUN/Creatinine Ratio Glucose Calcium Magnesium Total Bilirubin Direct Bilirubin AST ALT Alkaline Phosphatase Ammonia Troponin I Total Protein Albumin Globulin Albumin/Globulin Ratio TSH Urine Color Urine Clarity Urine pH Ur Specific [place] Urine Protein Urine Glucose (UA) Urine Ketones Urine Occult Blood Urine Nitrite Urine Bilirubin Urine Urobilinogen Ur Leukocyte Esterase Urine RBC Urine WBC Ur Squamous Epith Cells Amorphous Sediment Urine Bacteria Urine Mucus Urine Opiates Screen POSITIVE H Urine Methadone Screen NEGATIVE Ur Barbiturates Screen NEGATIVE Ur Phencyclidine Scrn NEGATIVE Ur Amphetamines Screen NEGATIVE U Methamphetamin-MDMA NEGATIVE U Benzodiazepines Scrn NEGATIVE Urine Cocaine Screen NEGATIVE U Cannabinoids Screen NEGATIVE Ur Drug Screen Comment Ethyl Alcohol - Rhythm Strip Rhythm Strip: Sinus Rhythm Rate: 88 - EKG Initial EKG Interpretation: Sinus Rhythm, No Acute Injury Pattern - Medical Decision Making 74-year-old female presenting with multiple falls today. EMS has been to her house 3 times. Her last fall she hit her head. She states she did not lose consciousness. She denied drinking alcohol today however her EtOH level is 148. She has a leukocytosis of almost 15,000. She has a urinary tract infection as well. She was started on Rocephin and a urine culture was sent. Patient is slightly dehydrated so she was given IV fluids as well. Potassium was 3.0 with a normal magnesium and she was given 40 mEq of potassium p.o. Will likely need more when she is admitted. CT of the brain and cervical spine were negative. Chest x-ray is negative. Laceration over the right eye was repaired please see procedure note. Given the patient's multiple falls, UTI, intoxication I felt it was necessary to admit the patient. I did speak with her daughter who will come up tomorrow. Impression: 1. Multiple falls 2. Head injury 3. 3 cm scalp laceration 4. UTI 5. Leukocytosis 6. EtOH intoxication 7. Dehydration 8. Hypokalemia Procedures - Lacerations No standard instances Depth: Skin Shape: Linear Prep: Sterile Conditions, Chlorhexadine Laceration repair: Irrigated, Lidocaine with epi Irrigated (ml): 250 Number of Sutures/[place]: 4 Suture Information: Ethilon, 6-0 ED Disposition - Plan for ED Patient: Disposition: [facility] Referrals: Erica Richardson DO [Primary Care Provider] -
--- NOTE | 2020-03-10 22:47 | ED.RN ---
FAMILY CONTACT INFORMATION VIRGILIO GARCIADAN[facility] NEIGHBOR [phone] TORI [employer] OPERATOR [phone]
--- NOTE | 2020-03-10 22:51 | CT_ITS ---
HISTORY: FALL WITH LAC TO RIGHT EYE ADDITIONAL HISTORY: None provided. COMPARISON: 10/10/2019 EXAMINATION/TECHNIQUE: CT Head or Brain W/O Contrast Injection. Axial, coronal and sagittal images. Number of images including paperwork: 243. A radiation dose optimization technique was used for this scan. FINDINGS: BRAIN: No acute hemorrhage or mass. No definite acute infarct; MRI more sensitive. White matter hypodensity is nonspecific but most commonly seen with chronic ischemic changes. Generalized atrophy. VENTRICULAR SYSTEM: No hydrocephalus. PARANASAL SINUSES AND MASTOIDS: No air-fluid level in the imaged extent. ORBITS: Unremarkable imaged extent. SKELETON AND SOFT TISSUES: Calvarium intact. Right periorbital soft tissue swelling. ASPECTS score: Not applicable. CT/Brain/Head without Contrast IMPRESSION: No acute intracranial abnormality. Chronic involutional and white matter changes. Individualized dose optimization techniques were used for this CT. at 2335 Reported and signed by: No Baker MD Electronically Signed: No Baker MD at 23:35 EST Tel , Service support ,
--- NOTE | 2020-03-10 22:52 | EKG12_ITS ---
Test Reason : DYSRHYTHMIA Blood Pressure : / mmHG Vent. Rate : 088 BPM Atrial Rate : 088 BPM P-R Int : 152 ms QRS Dur : 084 ms QT Int : 390 ms P-R-T Axes : 042 -12 -03 degrees QTc Int : 471 ms Normal sinus rhythm Normal ECG Confirmed by ANIKA CRAMER, MARKUS ([id number]), index editor ONESIMO GRACE ([id number]) on 03/11/2020 10:54:48 AM Referred By: Erica Richardson Confirmed By:MARKUS DONALDSON MD
--- NOTE | 2020-03-10 22:55 | CT_ITS ---
STUDY: CT CERVICAL SPINE WITHOUT CONTRAST REASON FOR EXAM: Female, 74 years old. FALL WITH LAC TO RIGHT EYE RADIATION DOSAGE (If Supplied By Facility): CTDIvol = ( 19.05 ) mGy, DLP = ( 405.66 ) mGycm TECHNIQUE: High resolution transaxial imaging was performed without contrast material. Sagittal and coronal images were reconstructed. Individualized dose optimization techniques were used for this CT. COMPARISON: 08/23/2019 FINDINGS: No definite acute fracture/dislocation. The cervical junction is intact. C1-C2 articulation is intact. There is reversal of curvature. There is grossly normal alignment. Facet joints are intact at all levels bilaterally. No jumped facets. There is multilevel spondyloarthropathy. Multilevel degenerative disc disease seen. Multilevel loss of disc height. Multilevel posterior marginal osteophytes and disc bulges. Multilevel neural foraminal narrowing. Visualized paraspinal soft tissues and structures are unremarkable. CT/Spine Cervical without Contras IMPRESSION: There is no definite acute fracture/dislocation. Degenerative changes. Electronically Signed: Danny Nair MD at 23:36 EST , Service support ,
--- NOTE | 2020-03-10 23:14 | RAD_ITS ---
STUDY: X-RAY CHEST REASON FOR EXAM: Female, 74 years old. FALL TECHNIQUE: Single AP portable view of the chest. COMPARISON: 05/19/2019. FINDINGS: Port-A-Cath terminates in the superior vena cava. The lungs are clear and expanded. There is no demonstrated pleural abnormality. Normal size heart. Normal mediastinum and zeinab. Normal visualized pulmonary arteries. Normal visualized aortic arch and descending thoracic aorta. Prior internal fixation of right humerus. Soft tissues and bony structures are otherwise unremarkable. RAD/Chest 1 View (Portable) IMPRESSION: Normal x-ray examination of the chest. Electronically Signed: Emilie Cueva MD at 23:47 EST Tel , Service support ,
[2020-03-10 23:25] LABS: Absolute Lymphocyte Count 1.73 X10^3/uL (0.83-4.51); Absolute Neutrophil Count 11.3 X10^3/uL (2.0-7.7); Basophil# 0.11 X10^3/uL; Basophil% 0.8 % (0-1); Eosinophil# 0.26 X10^3/uL; Eosinophils% 1.8 % (0-5); Hematocrit 40.2 % (37-47); Hemoglobin 13.3 g/dL (12.0-15.0); Lymphocyte # 1.73 X10^3/ul (4.0); Lymphocyte % 11.8 % (19-41); Mean Corp Hgb Conc 33.1 g/dL (32-36); Mean Corpuscular Hgb 32.7 pg (27.0-32.0); Mean Corpuscular Volume 98.8 fL (81-99); Mean Platelet Vol. 10.2 fl (6.2-12.0); Monocyte% 6.8 % (0-10); NRBC Flagged by Analyzer 0 % (0-5); Neutrophil # 11.33 X10^3/uL (2.7-7.7); Neutrophil % 77.3 % (47-70); Platelet Count 294 K/mm3 (150-450); RBC Distribution Width SD 50.8 fl (35.1-43.9); Red Blood Count 4.07 M/mm3 (4.2-5.4); White Blood Count 14.7 K/mm3 (4.4-11.0)
[2020-03-10 23:41] LABS: International Normalized Ratio 1.1; Prothrombin Time (Protime)PT. 13.9 SECONDS (11.7-14.9)
[2020-03-10] MEDS: Lidocaine/Epi/Tetracaine 50 ML 1 APPLIC TOPICAL (23:41)
[2020-03-10] MEDS: Lidocaine 1% /Epi 1:100 (20ml) 20 ML Vial 10 ML INFILT (23:41)
[2020-03-10 23:48] LABS: AST(SGOT) 26 U/L (15-37); Alanine Aminotransfer ALT/SGPT 30 U/L (13-56); Alkaline Phosphatase 105 U/L (45-117); Anion Gap 9 (5-15); BUN 19 mg/dL (7-18); BUN/Creat Ratio 25.1 RATIO (10-20); Bilirubin, Direct 0.08 mg/dL (0.00-0.30); Calcium,Total 8.8 mg/dL (8.5-10.1); Chloride 103 mmol/L (98-107); Creatinine, Serum 0.76 mg/dL (0.55-1.02); EST Glomerular Filtration Rate 80 mL/min (>60); Est Glom Filt Rate - Afr Amer 96 mL/min (>60); Globulin 3.9 g/dL (2.2-4.2); Glucose 112 mg/dL (74-106); Protein, Total 7.9 g/dL (6.4-8.2); Sodium Level 141 mmol/L (136-145); Thyroid Stim Hormone (TSH) 2.72 uIU/mL (0.358-3.74)
[2020-03-10 23:54] LABS: Mucous, Urine 0 SEEN /hpf (<or=2+); Squamous Epithelial Cells - UA 0 SEEN /hpf (5-10)
[2020-03-11] VITALS (7 sets, daily range): BP systolic 134–156; BP diastolic 70–95; PULSE 88–102; RESP 16–18; TEMP 36.5–36.8; O2SAT 93–99; BMI 23.6
[2020-03-11 00:01] LABS: Color, Urine Yellow (Yellow); Glucose, Dipstick Normal (Normal); Ketone-Dipstick Negative (Negative); Leukocyte Esterase-Dipstick 25 /ul (Negative); Nitrite-Dipstick Positive (Negative); Occult Blood-Urine 25 /ul (Negative); Protein-Dipstick Negative (Negative); Specific Gravity, Urine 1.015 (1.002-1.030); Urine Bilirubin Dipstick Negative (Negative); Urine Clarity Clear (Clear); Urine Urobilinogen Normal (Normal)
[2020-03-11 00:08] LABS: Amorphous Sediment 1+; Bacteria 3+ /hpf (None Seen); Red Blood Cells-Urine 0-5 SEEN /hpf (0-5); White Blood Cells 0-5 SEEN /hpf (0-5)
[2020-03-11 00:14] LABS: Amphetamine Urine VISTA NEGATIVE (<1000 ng/mL); Barbiturate Urine VISTA NEGATIVE (< 200 ng/mL); Benzodiazepine Urine VISTA NEGATIVE (< 200 ng/mL); Cocaine Urine VISTA NEGATIVE (< 300 ng/mL); Ecstacy Urine VISTA NEGATIVE (< 500 ng/mL); Methadone Urine VISTA NEGATIVE (< 300 ng/mL); PCP Urine VISTA NEGATIVE (< 25 ng/mL); THC Urine VISTA NEGATIVE (< 50 ng/mL); Vista UDS pH Range 6
[2020-03-11] MEDS: Ceftriaxone 1 GM/50 ML BAG IV (00:27)
--- NOTE | 2020-03-11 02:14 | PCM.HP.STD ---
Problem List (1) Frequent falls Status: Acute (2) Alcohol intoxication Status: Acute Qualifiers: Complication of substance-induced condition: uncomplicated Qualified Code(s): F10.920 - Alcohol use, unspecified with intoxication, uncomplicated (3) UTI (urinary tract infection) Status: Acute Qualifiers: Urinary tract infection type: site unspecified (4) Hypertension Status: Chronic Qualifiers: Hypertension type: essential hypertension Qualified Code(s): I10 - Essential (primary) hypertension (5) Anemia Status: Chronic Qualifiers: Anemia type: unspecified type Qualified Code(s): D64.9 - Anemia, unspecified (6) GERD (gastroesophageal reflux disease) Status: Chronic Qualifiers: Esophagitis presence: esophagitis presence not specified Qualified Code(s): K21.9 - Gastro-esophageal reflux disease without esophagitis (7) Hypothyroidism Status: Chronic Qualifiers: Hypothyroidism type: unspecified Qualified Code(s): E03.9 - Hypothyroidism, unspecified (8) Tobacco abuse Status: Resolved (9) Breast cancer Status: Chronic Qualifiers: Breast location: unspecified site of breast Estrogen receptor status: unspecified Patient sex: female Laterality: left Qualified Code(s): C50.912 - Malignant neoplasm of unspecified site of left female breast (10) Melanoma Status: Chronic Qualifiers: Melanoma location: unspecified site Qualified Code(s): C43.9 - Malignant melanoma of skin, unspecified (11) Opioid dependence Status: Chronic Qualifiers: Substance use status: with unspecified opioid-induced disorder Qualified Code(s): F11.29 - Opioid dependence with unspecified opioid-induced disorder (12) Benzodiazepine dependence Status: Chronic (13) Hypothyroidism (acquired) Status: Chronic History of Present Illness Date of Admission: 03/11/20 Chief Complaint: Mechanical falls, facial laceration, intoxication. The patient is a 74 y/o F w/ PMHx: Hx Breast CA s/p mastectomy, HTN, HLD, Rheumatoid arthritis, Hypothyroidism, Anxiety and Depression, EtOH abuse who presents to the [facility] ED on 03/11/20 with history of several recent falls, increased weakness and malaise with eventual mechanical fall with inability to get up off the floor, hitting her right temporal region with no LOC prompting her to hit her life alert button with EMS evaluation at that time who noted that they already been to the house twice secondary to recent falls. Patient has had increased urinary frequency as of late. In the ED work-up included T 98.3, heart rate 91, BP 129/76, respiratory rate 16, 94% on room air, CBC with WC 14.7, hemoglobin 13.3, platelet 294 with left shift, unremarkable coags, CMP with potassium 30, BUN/creatinine 19/0.76, glucose 112, troponin less than 0.015, magnesium 2.0, TSH 2.72, UDS with positive opiates, ethyl alcohol level 148, urinalysis with positive nitrite, 25 occult blood, 25 leukocyte Estrace, no urine market WBCs noted but 3+ urine bacteria, chest x-ray with no acute cardiopulmonary findings, CT of the brain with no acute intracranial findings, CT of the cervical spine with no definite acute fracture/dislocation with degenerative changes only, EKG was sinus rhythm with no acute evidence of ischemia. In the ED patient administered normal saline, potassium 40 mill equivalent p.o. x1 as well as Rocephin. In the ED patient laceration secondary to fall irrigated and sutures placed. Past Medical History Past Medical History (Chronic Problems): Chronic Problems (Last Reviewed 05/19/19 @ 08:[address] Avni Pacheco MD) Hyponatremia (Chronic) Hypokalemia (Chronic) Multiple rib fractures (Chronic) Encephalopathy (Chronic) Pancreatitis (Chronic) Hypertension (Chronic) Alcohol abuse (Chronic) Anemia (Chronic) Hypomagnesemia (Chronic) GERD (gastroesophageal reflux disease) (Chronic) Hypothyroidism (Chronic) Breast cancer (Chronic) Melanoma (Chronic) Opioid dependence (Chronic) Benzodiazepine dependence (Chronic) Hypothyroidism (acquired) (Chronic) Vitamin D deficiency (Chronic) Continues on vitamin d replacement. Review of recent labs indicates now in range with replacement of vit D 2000 daily. Calcium in range. SCeduled for bone density in 1-2 months. Reports BMD good without osteoporosis. Medical History: Medical History (Last Reviewed 05/19/19 @ 08:[address] 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 Pneumonia J18.9 Rheumatoid arthritis M06.9 Skin cancer C44.90 HTN (hypertension) I10 Allergies bacitracin [From Neosporin ([id number])] Allergy (Unknown, Verified 03/10/20 22:42) Unknown diphenhydramine [From Benadryl] Allergy (Unknown, Verified 03/10/20 22:42) Unknown neomycin [From Neosporin ([id number])] Allergy (Unknown, Verified 03/10/20 22:42) Unknown polymyxin B [From Neosporin ([id number])] Allergy (Unknown, Verified 03/10/20 22:42) Unknown Home Medications: Ambulatory Orders Medication Instructions Recorded clonazepam 1 mg tablet 1 mg PO 5X/DAY tab 05/01/17 Synthroid 125 mcg tablet 125 mcg PO DAILY #90 tab NS 04/29/18 Buspirone HCl 5 mg PO QHS 03/10/20 Hydrocodone/Acetaminophen 1 ea PO Q6H PRN PRN 03/10/20 [Hydrocodone-Acetamin 10-325 mg] Levothyroxine [Synthroid] 125 mcg PO DAILY 03/10/20 Zolpidem Tartrate [Ambien] 10 mg PO QHS 03/10/20 Surgical History: Surgical History (Last Reviewed 04/29/18 @ 08:35 by Cyndi Jimenez) H/O mastectomy Z98.890, Z90.10 H/O thyroidectomy E89.0 Status post glaucoma surgery Z98.83 Surgical History: mastectomy - Excision Melanoma, ORIF, thyroidectomy, left breast mastectomy, tonsillectomy. 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 Smoking Status: Former smoker - Patient quit cigarette tobacco usage approximately 1 year prior with prior to this potentially 1/2 to 1 pack/day, starting when she was in her 20s she notes. Alcohol: Heavy - Patient with heavy white wine intake, denies being an alcoholic however and states she does not drink daily including on presentation however her alcohol level does not match this history. Drugs: None - *Family History Paternal Family History: Family History (Last Reviewed 04/29/18 @ 08:35 by Cyndi Jimenez) Unknown Thyroid disorder Cancer High cholesterol Arthritis History Items: Hypertension, - - Migraine. Maternal Family History: Family History (Last Reviewed 04/29/18 @ 08:35 by Cyndi Jimenez) Unknown Thyroid disorder Cancer High cholesterol Arthritis History Items: Heart Disease Review of Systems Constitutional: Reports: Malaise, Weakness, Fatigue. Denies: Chills, Fever, Weight Change HEENT: Reports: Head Aches. Denies: Sinus Congestion, Sinus Drainage Cardiovascular: Denies: Chest Pain, Palpitations Respiratory: Denies: Cough, Shortness of breath at rest, Sputum production Gastrointestinal: Denies: Abdominal Pain, Nausea, Vomiting Genitourinary: Denies: Dysuria Musculoskeletal: Reports: Back Pain, Joint Pain. Denies: Joint Tenderness Skin: Denies: Rash, Wounds Neurological: Denies: Numbness, Tingling, Focal weakness Psychiatric: Reports: Anxiety, Depression. Denies: Homicidal Ideations, Suicidal Ideations Hematologic/ Lymphatic: Reports: Easy Bruising, Easy Bleeding VTE Information - Inpt Only VTE Present on Admission: No VTE Mechan Device Prophylaxis: SCD's VTE Pharm Prophylaxis ordered?: No Reason prophylaxis not ordered:: Medical Contraindication Patient Problems: Active and Suspected Problems (Last Reviewed 05/19/19 @ 08:[address] Avni Pacheco MD) Frequent falls (Acute) Alcohol intoxication (Acute) UTI (urinary tract infection) (Acute) Subjective: Patient laying in the ED bed, arousable, less slurred speech than upon initial ED presentation, sobering. Objective: Physical Examination: General: Arousing, alert to self and place, oriented x3, remains cooperative, laying in the ED bed, no acute distress currently, not eager to be admitted. Skin: normal color, turgor, no icterus, cyanosis except occasional staged ecchymoses, right face with laceration just above the eye with sutures in place. HEENT: Recent fall with laceration with sutures in place just above the right eye otherwise atraumatic/NC, EOMI, PERRLA, dry MM, no carotid bruits or JVD noted. Lungs: Diminished breath sounds, greater bases, moderate decrease BL bases, no rales, ronchi or wheezing. Heart: Regular rate and rhythm; no gallop, rub audible. Abdomen: soft, NTTP, ND, normal BS, no HSM. Extremities: no cyanosis, clubbing, or edema. Neurological: patient awake, alert, oriented as noted; cognitive function suspect nearing baseline intact; pupils equally reactive to light and accomodation; cranial nerves II-XII grossly normal, moving all 4 extremities, no focal deficits, strength moderately global decrease secondary to acute presentation with intoxication concurrently. Psychiatric: affect appears fatigued otherwise normal, no acute evidence of depressive or anxiety feelings. - Physical Exam Vitals/I&O's: Vital Signs Temp Pulse Resp BP Pulse Ox 98.3 F 88 16 156/95 H 98 03/10/20 22:43 03/11/20 01:28 03/11/20 01:28 03/11/20 01:28 03/11/20 01:28 Oxygen Delivery Method Room Air Weight: 147 lb 14.883 oz Body Mass Index (BMI) 23.8 Finger Stick Blood Glucose 111 Intake and Output for Last 24 Hours 03/09/20 03/10/20 03/11/20 23:59 23:59 23:59 Intake Total 550 / 550 Balance 550 / 550 Laboratory Results 03/10/20 23:05: WBC 14.7 H, RBC 4.07 L, Hgb 13.3, Hct 40.2, MCV 98.8, MCH 32.7 H, MCHC 33.1, RDW Std Deviation 50.8 H, RDW Coeff of Felix 14.0, Plt Count 294, MPV 10.2, Immature Gran % (Auto) 1.500 H, Neut % (Auto) 77.3 H, Lymph % (Auto) 11.8 L, [place] % (Auto) 6.8, Eos % (Auto) 1.8, Baso % (Auto) 0.8, Absolute Neuts (auto) 11.3 H, Absolute Lymphs (auto) 1.73, Nucleated RBC % 0 03/10/20 23:05: PT 13.9, INR 1.1 03/10/20 23:05: Sodium 141, Potassium 3.0 L, Chloride 103, Carbon Dioxide 29.0, Anion Gap 9, BUN 19 H, Creatinine 0.76, Estim Creat Clear Calc 46.90, Est GFR (MDRD) Af Amer 96, Est GFR (MDRD) Non-Af 80, BUN/Creatinine Ratio 25.1 H, Glucose 112 H, Calcium 8.8, Magnesium 2.0, Total Bilirubin 0.30, Direct Bilirubin 0.08, AST 26, ALT 30, Alkaline Phosphatase 105, Troponin I < 0.015, Total Protein 7.9, Albumin 4.0, Globulin 3.9, Albumin/Globulin Ratio 1.0, TSH 2.72 03/10/20 23:05: Ammonia 12.0 03/10/20 23:05: Ethyl Alcohol 148.0 03/10/20 23:50: Urine Color Yellow, Urine Clarity Clear, Urine pH 6.0, Ur Specific [place] 1.015, Urine Protein Negative, Urine Glucose (UA) Normal, Urine Ketones Negative, Urine Occult Blood 25 H, Urine Nitrite Positive H, Urine Bilirubin Negative, Urine Urobilinogen Normal, Ur Leukocyte Esterase 25 H, Urine RBC 0-5 SEEN, Urine WBC 0-5 SEEN, Ur Squamous Epith Cells 0 SEEN, Amorphous Sediment 1+, Urine Bacteria 3+, Urine Mucus 0 SEEN 03/10/20 23:50: Urine Opiates Screen POSITIVE H, Urine Methadone Screen NEGATIVE, Ur Barbiturates Screen NEGATIVE, Ur Phencyclidine Scrn NEGATIVE, Ur Amphetamines Screen NEGATIVE, U Methamphetamin-MDMA NEGATIVE, U Benzodiazepines Scrn NEGATIVE, Urine Cocaine Screen NEGATIVE, U Cannabinoids Screen NEGATIVE, Ur Drug Screen Comment Assessment/Plan All Active Problems (Last Reviewed 05/19/19 @ 08:[address] Avni Pacheco MD) Debility (Acute) Fall (Acute) Subdural hematoma (Acute) Scalp laceration (Acute) Urinary tract infection (Acute) Tobacco abuse (Resolved) Frequent falls (Acute) Alcohol intoxication (Acute) UTI (urinary tract infection) (Acute) History of recent fall (Acute) The patient is a 74 y/o F w/ PMHx: Hx Breast CA s/p mastectomy, HTN, HLD, Rheumatoid arthritis, Hypothyroidism, Anxiety and Depression, EtOH abuse who presents to the [facility] ED on 03/11/20 with history of several recent falls, increased weakness and malaise with eventual mechanical fall with inability to get up off the floor, hitting her right temporal region with no LOC prompting her to hit her life alert button with EMS evaluation at that time who noted that they already been to the house twice secondary to recent falls. 1. Increased mechanical falls, suspect multifactorial, alcohol abuse with intoxication and possibly acute Urinary Tract Infection: Will admit to medical surgical floor, UA upon ED evaluation mildly remarkable, pending UCx, admission CBC w/ WBC elevation with left shift although is afebrile, continue IVFs, monitor I/Os, continue IV Rocephin w/ transition as able pending sensitivities and speciation and if not marked appearing may de-escalate off regimen. Will maintain on fall precautions, consult PT, OT, case management for discharge planning. Right inferior temporal laceration with sutures in place, will need removed per ED recommendation timeline. 2. Hypokalemia: Admission K+ 3.0, magnesium 2.0, supplementation given, repeat level in AM. 3. EtOH Abuse: Patient denies routine alcohol intake but family does state that she is an alcoholic. She does admit that she drinks wine, specifically white wine. She denies drinking it daily and states on day of ED presentation that she did not have much to drink at all which does not match her presentation nor her alcohol level. She is not interested in any alcohol withdrawal treatment and denies being an alcoholic. Will maintain on CIWA protocol, MVI, thiamine and folic acid. Magnesium 2.0, will obtain phosphorus level and supplement if necessary. 4. Polysubstance abuse: Patient with UDS notable for opiates and on significant amount of benzodiazepines in addition to alcohol abuse as noted, all likely contributing to fall history, patient would benefit strongly from detoxification from all agents, will encourage strongly early follow-up with primary care physician and will consult case management for substance abuse. 5. Anxiety and depression: We will continue patient home BuSpar, clonazepam regimen to avoid any withdrawal as patient is on significantly elevated regimen of 1 mg p.o. 5 times per day which possibly is contributing to her frequent falls. Patient would greatly benefit from alternate regimen. 6. Hypertension: Per current list not on regimen, BP mildly elevated in the ED, will maintain on IV as needed hydralazine pending medication reconciliation. 7. Hyperlipidemia: Not on statin per current regimen listed, awaiting complete medication reconciliation. 8. Questionable history of rheumatoid arthritis: Not on regimen, encourage continued outpatient follow-up with rheumatology as needed. 9. Hypothyroidism: Continue home synthroid regimen, TSH normal as noted per ED. 10. DVT prophylaxis: SCDs, defer any chemoprophylaxis given frequent falls. OBSV E&M: 39760 Initial observation care L3
[2020-03-11] MEDS: Ondansetron 4 MG/2 ML Vial IM (02:43)
[2020-03-11] MEDS: 0.9% Normal Saline 1,000 ML 999 ML IV (02:43)
[2020-03-11] MEDS: Morphine 4 MG/ML Syringe IV (02:45)
[2020-03-11 03:25] LABS: Phosphorus 4.3 mg/dL (2.5-4.9)
[2020-03-11] MEDS: 0.9% Normal Saline 1,000 ML 125 ML IV (03:34)
[2020-03-11] MEDS: oxyCODONE 5 MG Tablet PO (05:54)
[2020-03-11] MEDS: Levothyroxine 125 MCG Tablet PO (05:54)
[2020-03-11] MEDS: clonazePAM 1 MG Tablet PO (05:55)
[2020-03-11 06:39] LABS: ALB/GLOB Ratio 0.9 RATIO (0.9-2.4); AST(SGOT) 27 U/L (15-37); Alanine Aminotransfer ALT/SGPT 24 U/L (13-56); Albumin, Serum 3.4 g/dL (3.2-5.0); Alkaline Phosphatase 97 U/L (45-117); Anion Gap 8 (5-15); BUN 16 mg/dL (7-18); BUN/Creat Ratio 26.3 RATIO (10-20); Calcium,Total 7.8 mg/dL (8.5-10.1); Chloride 108 mmol/L (98-107); Creatinine, Serum 0.61 mg/dL (0.55-1.02); EST Glomerular Filtration Rate 103 mL/min (>60); Est Glom Filt Rate - Afr Amer 124 mL/min (>60); Globulin 3.6 g/dL (2.2-4.2); Glucose 89 mg/dL (74-106); Potassium 3.5 mmol/L (3.5-5.1); Sodium Level 139 mmol/L (136-145)
[2020-03-11 07:59] LABS: Absolute Lymphocyte Count 2.19 X10^3/uL (0.83-4.51); Absolute Neutrophil Count 8.3 X10^3/uL (2.0-7.7); Basophil# 0.08 X10^3/uL; Basophil% 0.7 % (0-1); Eosinophil# 0.34 X10^3/uL; Eosinophils% 2.8 % (0-5); Hematocrit 35.4 % (37-47); Hemoglobin 11.4 g/dL (12.0-15.0); Lymphocyte # 2.19 X10^3/ul (4.0); Lymphocyte % 18.2 % (19-41); Mean Corp Hgb Conc 32.2 g/dL (32-36); Mean Corpuscular Hgb 32.5 pg (27.0-32.0); Mean Corpuscular Volume 100.9 fL (81-99); Mean Platelet Vol. 10.3 fl (6.2-12.0); Monocyte# 1.09 X10^3/uL; Monocyte% 9.1 % (0-10); NRBC Flagged by Analyzer 0 % (0-5); Neutrophil # 8.29 X10^3/uL (2.7-7.7); Neutrophil % 68.9 % (47-70); Platelet Count 228 K/mm3 (150-450); RBC Distribution Width CV 14.1 % (11.6-14.6); RBC Distribution Width SD 51.3 fl (35.1-43.9); Red Blood Count 3.51 M/mm3 (4.2-5.4)
--- NOTE | 2020-03-11 09:51 | CASEMGMT ---
Social Work Note Per job service consultant questions, pt has completed HCPOA and LW, hasn't provided copy to [facility] and is unable to bring in copies. Leena Olsen MACHINIST HELPER, [employer]
--- NOTE | 2020-03-11 10:36 | DCINST_ITS ---
- Discharge Diagnoses Current Active Problems: Current Active and Chronic Problems (Last Reviewed 05/19/19 @ 08:[address] Avni Pacheco MD) Hyponatremia (Chronic) Hypokalemia (Chronic) Encephalopathy (Chronic) Pancreatitis (Chronic) Hypertension (Chronic) Anemia (Chronic) GERD (gastroesophageal reflux disease) (Chronic) Hypothyroidism (Chronic) Breast cancer (Chronic) Melanoma (Chronic) Opioid dependence (Chronic) Benzodiazepine dependence (Chronic) Frequent falls (Acute) Alcohol intoxication (Acute) UTI (urinary tract infection) (Acute) Hypothyroidism (acquired) (Chronic) You will use the following diet at home:: No restrictions Your food should be the consistency of: Regular Your liquids should be the consistency of: Regular/Thin Discharge Activity: Return to Normal Activity Weight Bearing Status: Full weight bearing Additional Instructions: Cut down or stop drinking alcohol Allergies/Adverse Reactions: Allergies bacitracin [From Neosporin ([id number])] Allergy (Unknown, Verified 03/10/20 22:42) Unknown diphenhydramine [From Benadryl] Allergy (Unknown, Verified 03/10/20 22:42) Unknown neomycin [From Neosporin ([id number])] Allergy (Unknown, Verified 03/10/20 22:42) Unknown polymyxin B [From Neosporin ([id number])] Allergy (Unknown, Verified 03/10/20 22:42) Unknown Medications to take at Discharge clonazepam 1 mg tablet 1 mg PO 5X/DAY tab 05/01/17 Synthroid 125 mcg tablet 125 mcg PO DAILY #90 tab NS 04/29/18 Buspirone HCl 5 mg PO QHS 03/10/20 Hydrocodone/Acetaminophen [Hydrocodone-Acetamin 10-325 mg] 1 ea PO Q6H PRN PRN 03/10/20 Levothyroxine [Synthroid] 125 mcg PO DAILY 03/10/20 Zolpidem Tartrate [Ambien] 10 mg PO QHS 03/10/20 Cephalexin [Keflex] 500 mg PO TID #21 cap 03/11/20 The following prescriptions were given: Cephalexin [Keflex] 500 mg PO TID #21 cap Transmission Status: Pending to [facility]/pharmacy #[id number] Primary Care Physician: Erica Richardson DO [Primary Care Provider] - Please follow up with your Primary Care Physician in: in 10 days-discuss any alcohol problems with her Test Results: Test results from this visit will be discussed in further detail at your follow- up appointment, if applicable.
--- NOTE | 2020-03-11 10:51 | CASEMGMT ---
Addendum entered by Leena Olsen 03/11/20 11:16: SW received call from Heydi with [facility] stating they never received referral for pt for Palliative. Original Note: Social Work Assessment SW received referral for substance abuse. SW reviewed chart. Pt has polysubstance abuse, uses ETOH, Opiates, Benzodiazepines. SW in to speak with pt to complete assessment. SW introduced self and role at [facility]. Pt is alert and orientated x3. Living Arrangements: Pt states she lives alone in a two story home. Pt states she uses both floors as she is trying to clear out the clutter. Pt states there are a couple steps to enter the home. Pt states that she has a woman named Yumi (caregiver) who checks on pt daily. DME: Pt states that she has walker, cane and LifeAlert button. ADLs: Pt states previously independent with ALDs, states she also has a cleaning lady that comes to her house. Transportation: Pt states she doesn't currently drive. PCP: Dr. Richardson Pharmacy: [facility] Substance Abuse Hx: Pt states she will occasionally drink wine. Pt states she will have 1-2 glasses of wine 2-3 days week, may be more if a friend comes over. Pt denied wanting ETOH resources/treatment options. Pt denied additional substance use/abuse. Mental Health Hx: Pt states she has history of anxiety and depression. Pt states she currently takes medications prescribed through her PCP. Pt states she feels her symptoms are well managed. Pt denied any history of suicidal thoughts/plans/ideations. Pt denied any current suicidal thoughts/plans/ideations. Pt denied ever being in counseling and pt denied wanting counseling resources. HHC: Pt stats she has had HHC in the past. Pt states it was home health [place] or something like that. SW reviewed notes from when pt was on TCU, a referral was sent to [facility]. SNF: Pt has been to TCU in the past. Pt states she will be going home at discharge. Pt agreeable to taking community resources and HHC list. [place] provided pt with community resources including private duty aides, [facility], and HHC list. Pt denied wanting HHC referral at this time, states she will take list home and review. SW encouraged pt to if she wants HHC when she gets home to call her PCP to get HHC set up. Pt states understanding. Pt denied additional needs or concerns at this time. SW reviewed notes from when pt was on TCU, a Palliative care referral was made to [facility]. SW placed a call to [facility] and left message asking if pt is active with Palliative. SW waiting for call back. Plan: Pt to discharge home. Pt denied needing any additional help or concerns in the home at this time. Pt denied C referral. Leena Olsen CLOTHESPIN MACHINE OPERATOR, M[employer]
--- NOTE | 2020-03-12 16:36 | DS.PCM_ITS ---
Discharge Date and Diagnosis - Problem List Patient Problems: Active and Suspected Problems (Last Reviewed 05/19/19 @ 08:[address] Avni Pacheco MD) Frequent falls (Acute) Alcohol intoxication (Acute) UTI (urinary tract infection) (Acute) Date of Admission: 03/11/20 Date of Discharge: 03/11/20 - Primary Discharge Diagnosis Acute Problems: Active Problems (Last Reviewed 05/19/19 @ 08:[address] Avni Pacheco MD) #1 alcohol intoxication #2 generalized debility secondary to chronic alcohol usage with polypharmacy #3 polypharmacy #4 acute [id number]-paju-ononwflj river #5 hypokalemia - Secondary Discharge Diagnosis Chronic Problems: Chronic Problems (Last Reviewed 05/19/19 @ 08:[address] Avni Pacheco MD) Hyponatremia (Chronic) Hypokalemia (Chronic) Multiple rib fractures (Chronic) Encephalopathy (Chronic) Pancreatitis (Chronic) Hypertension (Chronic) Alcohol abuse (Chronic) Anemia (Chronic) Hypomagnesemia (Chronic) GERD (gastroesophageal reflux disease) (Chronic) Hypothyroidism (Chronic) Breast cancer (Chronic) Melanoma (Chronic) Opioid dependence (Chronic) Benzodiazepine dependence (Chronic) Hypothyroidism (acquired) (Chronic) Vitamin D deficiency (Chronic) Continues on vitamin d replacement. Review of recent labs indicates now in range with replacement of vit D 2000 daily. Calcium in range. SCeduled for bone density in 1-2 months. Reports BMD good without osteoporosis. Hospital Course and Treatment Operations: None Procedures: None Summary of Care Provided: The patient is a 74 year old F seen in the emergency room at [facility] after being brought in due to a fall at home, she called the squad because she could not get off the floor. Per EMS, they had already been to the patient's house twice that day because she had fallen and was too weak to get up. Patient has a history of chronic alcohol use. Evaluation in the emergency room included a blood alcohol level which was elevated at 148, patient had leukocytosis of 15,000, urinalysis indicated the patient had a urinary tract infection. Patient's potassium was low at 3, she was given potassium supplementation. Patient was placed in observation status on MedSurg 3, later in the morning of 03/11/2020, patient stated that she wanted to go home and would not stay in the hospital, I felt there was no need to keep the patient and her daughter transported her home. On 03/11/2020, patient was seen and examined: On examination she appeared in good health and spirits, she does not appear to be in any distress. Vital signs as documented. Skin warm and dry and without overt rashes. Neck without JVD, thyroid appears normal, trachea is midline, neck is supple. Lungs clear, normal air movement was noted. Heart exam notable for regular rhythm, normal sounds and absence of murmurs, rubs or gallops. Abdomen unremarkable and without evidence of organomegaly, masses, or abdominal aortic enlargement, bowel sounds are present in all 4 quadrants, no abdominal tenderness was noted. Extremities nonedematous, no cyanosis was noted, no clubbing was noted. Neuro: Cranial nerves II through XII are grossly intact, no focal motor deficits were noted, sensation to light touch and pinprick is intact, motor exam 5/5 throughout. Psych: Patient is alert and oriented x3, she does not appear anxious or depressed, she does not appear agitated. Patient was discharged in stable condition on 03/11/2020 Patient Problems: Active and Suspected Problems (Last Reviewed 05/19/19 @ 08:[address] Avni Pacheco MD) Frequent falls (Acute) Alcohol intoxication (Acute) UTI (urinary tract infection) (Acute) - Physical Exam Vitals/I&O's: Vital Signs Temp Pulse Resp BP Pulse Ox 98.2 F 99 18 135/70 H 97 03/11/20 09:38 03/11/20 09:38 03/11/20 09:38 03/11/20 09:38 03/11/20 09:38 Oxygen Delivery Method Room Air Weight: 66.3 kg Body Mass Index (BMI) 23.6 Finger Stick Blood Glucose 111 Intake and Output for Last 24 Hours 03/10/20 03/11/20 03/12/20 23:59 23:59 23:59 Intake Total 2572.92 / 2572.92 Balance 2572.92 / 2572.92 Microbiology Past 72 Hours 03/10/20 23:50 Urine Catheter - Catheter Urine Culture - Preliminary Gram negative river Discharge Activity: Return to Normal Activity Weight Bearing Status: Full weight bearing Home Medications: Medications to take at Discharge clonazepam 1 mg tablet 1 mg PO 5X/DAY tab 05/01/17 Synthroid 125 mcg tablet 125 mcg PO DAILY #90 tab NS 04/29/18 Buspirone HCl 5 mg PO QHS 03/10/20 Hydrocodone/Acetaminophen [Hydrocodone-Acetamin 10-325 mg] 1 ea PO Q6H PRN PRN 03/10/20 Levothyroxine [Synthroid] 125 mcg PO DAILY 03/10/20 Zolpidem Tartrate [Ambien] 10 mg PO QHS 03/10/20 Cephalexin [Keflex] 500 mg PO TID #21 cap 03/11/20 Following Prescriptions Were Given to Patient: Cephalexin [Keflex] 500 mg PO TID #21 cap Transmission Status: Received by [id number] Primary Care Physician: Erica Richardson DO [Primary Care Provider] - Please follow up with your Primary Care Physician in: in 10 days-discuss any alcohol problems with her Disposition: Home Minutes spent on discharge:: 30 Patient Condition:: Stable Medical Necessity - Tobacco Use Smoking Status: Former smoker Meaningful Use Info Meaningful Use Diagnoses (Choose all that apply): None applicable OBSV E&M: 57495 Observ/hosp same date L3
== END 2020-03-11 10:52 | disposition home or self-care (01) ==
LOC: ED 03-11 02:22 → MS3 03-11 02:29
PROVIDERS: Admitting Provider Family Medicine; Emergency Provider Student in an Organized Health Care Education/Training Program; PCP Family Medicine; Visit Provider Internal Medicine
DX: F10.229 Alcohol dependence with intoxication, unspecified (principal); N30.00 Acute cystitis without hematuria; E87.6 Hypokalemia; R29.6 Repeated falls; K86.1 Other chronic pancreatitis; S01.01XA Laceration without foreign body of scalp, initial encounter; W19.XXXA Unspecified fall, initial encounter; Y93.9 Activity, unspecified; Y92.009 Unspecified place in unspecified non-institutional (private) residence as the place of occurrence of the external cause; E86.0 Dehydration; I10 Essential (primary) hypertension; K21.9 Gastro-esophageal reflux disease without esophagitis; E03.9 Hypothyroidism, unspecified; F11.29 Opioid dependence with unspecified opioid-induced disorder; F13.20 Sedative, hypnotic or anxiolytic dependence, uncomplicated; M06.9 Rheumatoid arthritis, unspecified; E78.5 Hyperlipidemia, unspecified; F41.9 Anxiety disorder, unspecified; F32.9 Major depressive disorder, single episode, unspecified; R53.81 Other malaise; Y90.6 Blood alcohol level of 120-199 mg/100 ml; Z91.81 History of falling; Z87.891 Personal history of nicotine dependence; Z79.899 Other long term (current) drug therapy; Z85.3 Personal history of malignant neoplasm of breast; Z86.2 Personal history of diseases of the blood and blood-forming organs and certain disorders involving the immune mechanism
CPT/HCPCS: 12002; 36415; 70450; 71045; 72125; 80053; 80076; 80307; 80320; 81001; 82140; 83735; 84100; 84443; 84484; 85025; 85610; 87077; 87086; 87088; 87186; 93005; 96361; 96365; 96372; 96375; 97161; 99218; 99251; 99285; J7030; J7040; A4216; G0378; G0463; G0480; J2405

== ENCOUNTER → 2020-03-24 10:46 | Outpatient (CLI) | payer MEDICARE, BC, SELFPAY ==
[2020-03-11 03:07] VITALS: BMI 23.6
[2020-03-24 10:49] LABS: Bacteria 0 SEEN /hpf (None Seen); Mucous, Urine 0 SEEN /hpf (<or=2+); Red Blood Cells-Urine 0 SEEN /hpf (0-5)
[2020-03-24 12:25] LABS: Color, Urine Yellow (Yellow); Glucose, Dipstick Normal (Normal); Ketone-Dipstick Negative (Negative); Leukocyte Esterase-Dipstick Negative /ul (Negative); Nitrite-Dipstick Negative (Negative); Occult Blood-Urine Negative /ul (Negative); Protein-Dipstick Negative (Negative); Specific Gravity, Urine 1.005 (1.002-1.030); Urine Bilirubin Dipstick Negative (Negative); Urine Clarity Clear (Clear); Urine Urobilinogen Normal (Normal)
[2020-03-24 13:09] LABS: Squamous Epithelial Cells - UA 0-5 SEEN /hpf (5-10)
[2020-03-24 13:10] LABS: Transitional Epithelial - Ur 0-5 SEEN /hpf (0-5)
[2020-03-24 13:11] LABS: White Blood Cells 0-5 SEEN /hpf (0-5)
== END ==
PROVIDERS: PCP Family Medicine; Visit Provider Family Medicine
DX: N39.0 Urinary tract infection, site not specified (principal); F10.10 Alcohol abuse, uncomplicated
CPT/HCPCS: 81001; 87086

== ENCOUNTER 2020-04-06 13:49 | Emergency (ER) | payer MEDICARE, BC, SELFPAY ==
[2020-03-11 03:07] VITALS: BMI 23.6
[2020-04-06 13:50] VITALS: BP 171/108; PULSE 89; RESP 16; TEMP 36.4; O2SAT 98; BMI 23.8
--- NOTE | 2020-04-06 14:02 | CT_ITS ---
STUDY: CT BRAIN WITHOUT CONTRAST REASON FOR EXAM: Female, 74 years old. FELL 2 DAYS AGO, INJURED RT. EYE. DECREASED SIGHT, CONFUSION -- ALSO FELL INJURING RIGHT EYE X2 WEEKS AGO -- HX-SDH,BREAST CA RADIATION DOSAGE (If Supplied By Facility): CTDIvol = ( 44.99 ) mGy, DLP = ( 779.24 ) mGycm TECHNIQUE: Transaxial CT imaging of the brain was performed without administration of intravenous contrast material. Individualized dose optimization techniques were used for this CT. COMPARISON: Comparison is made with prior examination dated 03/10/2020. FINDINGS: Normal soft tissue structures. Normal calvarium. There is mild cerebral atrophy with widening of the extra-axial spaces and ventricular dilatation. There are areas of decreased attenuation within the white matter tracts of the supratentorial brain, consistent with microvascular disease changes. Normal basal ganglia and thalami. Normal brainstem. Normal cerebellum. There is no intracranial hemorrhage. There are no findings of an acute ischemic infarction. Atherosclerotic calcification of the cavernous portions of the internal carotid arteries bilaterally. Normal visualized paranasal sinuses. CT/Brain/Head without Contrast IMPRESSION: Chronic involutional changes of the brain. Electronically Signed: Franki Glez, at 14:30 EST , Service support ,
--- NOTE | 2020-04-06 14:06 | ED.VISSUMM ---
- ER Visit Summary Date of Service: 04/06/20 Chief Complaint: Fall History of Present Illness: The patient is a [address] Jeong. She reports that 2 days ago she was going up steps and tripped and hit her head on the banister. She is not on anticoagulants. She denies loss of consciousness. States that this is in the same spot that she fell or hit her head 2 weeks ago and required 5 stitches. Patient denies headache. She denies any neck, back, shoulder, wrist, or hip pain. She denies visual changes since the fall. She does report that she had shingles in her right eye and her vision has not been the same since that. She denies any acute changes with her vision. She denies headache, numbness, or weakness. Physical Examination: Vitals: Stable. Afebrile. Head: Hematoma and soft tissue swelling to the right side of the forehead just above the lateral portion of her eyebrow. This has resulted in dependent edema of her upper eyelid and lower eyelid. It is not swollen shut. She has no subconjunctival hematoma. Extraocular motions are intact without pain or deficit. Neck: No vertebral tenderness. Full ROM without difficulty. Cleared by NEXUS criteria. Back: No vertebral tenderness. General: A&O x 3. NAD. Cardiovascular exam: Regular rate and rhythm, no murmur, rub or gallop. Respiratory exam: Chest nontender. No crepitus. Clear to auscultation bilaterally. No wheezes or stridor. Abdominal exam: Soft, nontender, nondistended, normal bowel sounds. No pain in RUQ or LUQ specifically. No peritoneal signs. Extremity: Atraumatic. No pain with range of motion. Test Results: CT brain shows no acute disease. Emergency Department Course and Treatment: Patient refused pain medications. She is resting comfortably. Treatment Plan: Patient be discharged instructions follow-up with her primary care physician 1 week if not improving. Return to the emergency department for any worsening symptoms. Disposition: To home in improved and stable condition. Impression: 1. Hematoma to forehead. This note was generated with [employer] dictation software. It may contain incorrect words, spelling, and punctuation that were not noted in review of the chart prior to signing ED Disposition - Plan for ED Patient: Instructions: ED Hematoma Referrals: Erica Richardson DO [Primary Care Provider] - 1 Week if not improving
[2020-04-06 15:11] VITALS: PULSE 71; RESP 20
== END 2020-04-06 15:11 | disposition home or self-care (01) ==
LOC: ED 14:24
PROVIDERS: Emergency Provider Emergency Medicine; PCP Family Medicine
DX: S00.83XA Contusion of other part of head, initial encounter (principal); W19.XXXA Unspecified fall, initial encounter; Z85.3 Personal history of malignant neoplasm of breast
CPT/HCPCS: 70450; 99282

== ENCOUNTER 2020-04-16 05:52 | Emergency (ER) | payer MEDICARE, BC, SELFPAY ==
[2020-04-16 05:53] VITALS: BP 155/86; PULSE 97; RESP 18; TEMP 36.6; O2SAT 97; BMI 24.5
--- NOTE | 2020-04-16 06:06 | EKG12_ITS ---
Test Reason : FALL Blood Pressure : / mmHG Vent. Rate : 093 BPM Atrial Rate : 093 BPM P-R Int : 112 ms QRS Dur : 076 ms QT Int : 392 ms P-R-T Axes : 021 005 019 degrees QTc Int : 487 ms Normal sinus rhythm Normal ECG Confirmed by ISAIAH CRAMER, HILL ([id number]), news videotape editor ONESIMO GRACE ([id number]) on 04/21/2020 10:08:48 AM Referred By: SARAN Confirmed By:BRIAN COLON MD
--- NOTE | 2020-04-16 06:06 | CT_ITS ---
We are attempting to reach an attending provider to discuss findings. An addendum with communication details will be sent when the communication is complete. STUDY: CT BRAIN WITHOUT CONTRAST REASON FOR EXAM: Female, 74 years old. Fell, large laceration above right eye, admits to ETOH. Hx left breast cancer, melanoma, hypertension, SDH. RADIATION DOSAGE (If Supplied By Facility): CTDIvol = ( 44.99 ) mGy, DLP = ( 779.24 ) mGycm TECHNIQUE: Transaxial CT imaging of the brain was performed without administration of intravenous contrast material. Individualized dose optimization techniques were used for this CT. COMPARISON: 04/06/2020 FINDINGS: Small right frontal scalp hematoma. Normal calvarium. There is mild cerebral atrophy with widening of the extra-axial spaces and ventricular dilatation. Normal white matter tracts of the cerebral hemispheres. Chronic lacunar infarct of the left putamen. Normal brainstem. Normal cerebellum. There is been interval development of a thin (2 mm) linear area of increased attenuation subjacent to the right parietal bone at the level of the origin of the sylvian fissure on images 13 through 17 consistent with an acute small subdural hematoma. There are no findings of an acute ischemic infarction. Normal visualized paranasal sinuses. CT/Brain/Head without Contrast IMPRESSION: Acute small right parietal subdural hematoma. Electronically Signed: Colten Simms MD at 7:13 EST Tel , Service support ,
--- NOTE | 2020-04-16 06:06 | CT_ITS ---
STUDY: CT FACIAL BONES WITHOUT CONTRAST REASON FOR EXAM: Female, 74 years old. Fell, large laceration above right eye, admits to ETOH. Hx left breast cancer, melanoma, hypertension, SDH. RADIATION DOSAGE (If Supplied By Facility): CTDIvol = ( 29.38 ) mGy, DLP = ( 525.42 ) mGycm TECHNIQUE: The patient was scanned in a multi detector CT scanner. Sagittal and coronal images were reconstructed. Individualized dose optimization techniques were used for this CT. COMPARISON: None. FINDINGS: Small right frontal scalp hematoma. At the lateral aspect of the roof of the right orbit there is a soft tissue defect extending to the superficial cortex of the right frontal bone consistent with a laceration. Normal orbital torres and orbital contents. Normal nasal bones and anterior nasal spine. Normal facial bones. There is no demonstrated fracture. Normal visualized paranasal sinuses. CT/Sinus/Facial Bone IMPRESSION: Right frontal hematoma and deep laceration extending to the superficial cortex of the right frontal bone at the lateral aspect of the roof of the right orbit. No facial fracture. Electronically Signed: Colten Simms MD at 7:16 EST Tel , Service support ,
--- NOTE | 2020-04-16 06:06 | CT_ITS ---
STUDY: CT CERVICAL SPINE WITHOUT CONTRAST REASON FOR EXAM: Female, 74 years old. Fell, large laceration above right eye, admits to ETOH. Hx left breast cancer, melanoma, hypertension, SDH. RADIATION DOSAGE (If Supplied By Facility): CTDIvol = ( 17.67 ) mGy, DLP = ( 329.83 ) mGycm TECHNIQUE: High resolution transaxial imaging was performed without contrast material. Sagittal and coronal images were reconstructed. Individualized dose optimization techniques were used for this CT. COMPARISON: 03/10/2020 FINDINGS: Normal craniovertebral junction. There are degenerative changes of the anterior atlantoaxial articulation. Normal odontoid process. There is reversal of the normal cervical lordosis. Normal vertebral bodies and posterior osseous elements. C2-3: Mild bilateral facet hypertrophy with ankylosis of facet joints. No spinal stenosis or neural foraminal stenosis. C3-4: Moderate right facet hypertrophy and mild left facet hypertrophy. No spinal stenosis or neural foraminal stenosis. C4-5: Moderate right facet hypertrophy and mild left facet hypertrophy with ankylosis of the facet joints. 2 mm of anterolisthesis of C4 on C5. Mild bilateral neural foraminal stenosis. No central spinal stenosis. C5-6: 2 mm of anterolisthesis of C5 on C6. Mild bilobed disc osteophyte complex and bilateral vertebral hypertrophy produces mild spinal stenosis and mild bilateral neural foraminal stenosis. C6-7: 2 mm retrolisthesis of C6 on C7. Mild bilobed disc osteophyte complex and bilateral uncovertebral hypertrophy produces mild spinal stenosis and mild bilateral neural foraminal stenosis. C7-T1: Normal endplates. Normal disc height and morphology. Normal central canal and intervertebral neuroforamina. Normal visualized soft tissue structures. CT/Spine Cervical without Contras IMPRESSION: No acute fracture or subluxation. Electronically Signed: Colten Simms MD at 7:21 EST Tel , Service support ,
--- NOTE | 2020-04-16 06:07 | ED.DCSUM_ITS ---
History of Present Illness Chief Complaint: Alt LOC Narrative: Patient is a 74-year-old female who presents after a fall with a head injury. She states she woke up on the floor. She does not know how she got there. Per EMS she had been calling out for her her daughter who does not live with her. Her is in a retirement. The patient remembers this now. She states I must of blacked out. She states maybe I just drank too much last night. She does admitting to drinking vodka with friends last night. Review of records shows a history of multiple falls as well as alcohol abuse. Patient otherwise denies any recent illness such as fevers cough vomiting diarrhea chest pain difficulty breathing. Currently she complains of pain only at her right face where she has a large laceration. She states it really only hurts where she hit her face rather than a headache. She is not anticoagulated. She denies any other injuries. No chest pain abdominal pain no extremity pain no neck pain. Past Medical History - Allergies and Home Meds Allergies/Adverse Reactions: Allergies bacitracin [From Neosporin ([id number])] Allergy (Unknown, Verified 04/16/20 05:57) Unknown diphenhydramine [From Benadryl] Allergy (Unknown, Verified 04/16/20 05:57) Unknown neomycin [From Neosporin ([id number])] Allergy (Unknown, Verified 04/16/20 05:57) Unknown polymyxin B [From Neosporin ([id number])] Allergy (Unknown, Verified 04/16/20 05:57) Unknown Primary Care Physician: Erica Richardson DO [Primary Care Provider] - Past Medical History: - - Hypertension, alcohol abuse, hypothyroidism Surgical History: mastectomy - Excision Melanoma, ORIF, thyroidectomy, left breast mastectomy, tonsillectomy. Smoking Status: Former smoker - Family History Maternal Family History: Family History (Last Reviewed 04/29/18 @ 08:35 by Cyndi Jimenez) Unknown Thyroid disorder Cancer High cholesterol Arthritis Family History: Reports: Heart Disease Paternal Family History: Family History (Last Reviewed 04/29/18 @ 08:35 by Cyndi Jimenez) Unknown Thyroid disorder Cancer High cholesterol Arthritis Family History: Reports: Hypertension, - - Migraine. Review of Systems All systems negative except as indicated General: Denies: Fever Eyes: Denies: Visual changes - bilaterally ENT: Denies: Bilateral ear pain Cardiovascular: Denies: Chest pain Respiratory: Denies: Dyspnea Gastrointestinal: Denies: Vomiting, Diarrhea Musculoskeletal: Denies: Back pain, Extremity Pain Skin: Denies: Rash Neurological: Denies: Headache Psych: Reports: Anxiety Hematologic: Denies: Easy bleeding Allergy: Denies: Uticaria Physical Exam Vital Signs/Narrative: Vital Signs Temp Pulse Resp BP Pulse Ox 04/16/20 05:53 98 F 97 18 155/86 H 97 Inital Vital Signs reviewed: Yes General: Well nourished Head: Normocephalic, - - Stellate right facial laceration 6 x 3 cm Eyes: Perrl, EOMI ENT: Moist mucous membranes Neck: Supple Cardiovascular: Regular rate, Regular rhythm Respiratory: No distress, CTA bilaterally Abdomen: Soft, Nontender Back: Nontender Extremities: Nontender, No edema, - - Active full range of motion x4 extremities without pain Skin: Normal color Neurological: Alert, Oriented x3, - - Patient has a GCS of 15 no focal or lateralizing neurological deficits Psychological: Normal affect Diagnostic/Tx/Re-eval Impressions Chest X-Ray 04/16/20 06:38 IMPRESSION: No active disease. Electronically Signed: Colten Simms MD at 6:59 EST Tel , Service support , 04/16/20 06:06 Brain/Head without Contrast [CT] Stat Sinus/Facial Bone [CT] Stat Spine Cervical without Contras [CT] Stat 04/16/20 06:38 Chest 1 View (Portable) [RAD] Stat Laboratory Results 04/16/20 04/16/20 06:14 06:14 WBC 14.3 H RBC 3.82 L Hgb 12.5 Hct 38.5 MCV 100.8 H MCH 32.7 H MCHC 32.5 RDW Std Deviation 51.5 H RDW Coeff of Felix 13.9 Plt Count 284 MPV 10.5 Immature Gran % (Auto) 0.400 Neut % (Auto) 83.7 H Lymph % (Auto) 7.5 L Turner % (Auto) 6.6 Eos % (Auto) 1.3 Baso % (Auto) 0.5 Absolute Neuts (auto) 11.9 H Absolute Lymphs (auto) 1.07 Nucleated RBC % 0 PT 13.3 INR 1.1 - Medical Decision Making Patient's facial laceration was anesthetized with 10 cc of 1% lidocaine without epinephrine. Good anesthesia was achieved. The wound was cleansed and irrigated with sterile saline. Laceration was closed with a total of 12 simple interrupted 5?0 nonabsorbable sutures. She was sent for CTs of the head cervical spine and facial bones.. - Critical Care Time Critical care time (excluding procedures): 30-74 minutes ED Disposition - Plan for ED Patient: Disposition: [facility] Diagnosis: Subdural hematoma, Alcohol abuse, Fall Referrals: Erica Richardson DO [Primary Care Provider] -
--- NOTE | 2020-04-16 06:09 | ED.RN ---
CALL TO DAUGHTER TO UPDATE, SHE REPORTS PT IS A BAD ALCOHOLIC AND TAKES MULTIPLE DIFFERENT MEDICATIONS, INCLUDING OPIATES AND AMBIEN. SHE REPORTS PT HAS HAD MULTIPLE FALLS LATELY AND THEY DO HAVE DAILY CAREGIVERS COME IN BUT PT REFUSES HELP, THEY ARE ATTEMPTING TO GET MORE CAREGIVERS IN BUT PT DECLINES. APS IS INVOLVED.
--- NOTE | 2020-04-16 06:38 | RAD_ITS ---
STUDY: X-RAY CHEST REASON FOR EXAM: Female, 74 years old. Fall last night, pt states she may have drank too much alcohol last night prior to fall, confusion after her fall. TECHNIQUE: Single AP portable view of the chest. COMPARISON: 03/10/2020 FINDINGS: Right internal jugular chest port which is unchanged. The lungs are clear and expanded. There is no demonstrated pleural abnormality. Normal size heart. Normal mediastinum and zeinab. Normal visualized pulmonary arteries. There is atherosclerotic tortuosity of the aortic arch and descending thoracic aorta. Normal visualized thoracic spine. Normal visualized ribs, clavicles, and shoulders. There is no demonstrated abnormality of the visualized soft tissue structures of the upper abdomen. RAD/Chest 1 View (Portable) IMPRESSION: No active disease. Electronically Signed: Cotlen Simms MD at 6:59 EST Tel , Service support ,
[2020-04-16 06:40] LABS: Absolute Lymphocyte Count 1.07 X10^3/uL (0.83-4.51); Absolute Neutrophil Count 11.9 X10^3/uL (2.0-7.7); Basophil# 0.07 X10^3/uL; Basophil% 0.5 % (0-1); Eosinophil# 0.19 X10^3/uL; Eosinophils% 1.3 % (0-5); Hematocrit 38.5 % (37-47); Hemoglobin 12.5 g/dL (12.0-15.0); Lymphocyte # 1.07 X10^3/ul (4.0); Lymphocyte % 7.5 % (19-41); Mean Corp Hgb Conc 32.5 g/dL (32-36); Mean Corpuscular Hgb 32.7 pg (27.0-32.0); Mean Corpuscular Volume 100.8 fL (81-99); Mean Platelet Vol. 10.5 fl (6.2-12.0); Monocyte# 0.94 X10^3/uL; Monocyte% 6.6 % (0-10); NRBC Flagged by Analyzer 0 % (0-5); Neutrophil # 11.94 X10^3/uL (2.7-7.7); Neutrophil % 83.7 % (47-70); Platelet Count 284 K/mm3 (150-450); RBC Distribution Width CV 13.9 % (11.6-14.6); RBC Distribution Width SD 51.5 fl (35.1-43.9); Red Blood Count 3.82 M/mm3 (4.2-5.4); White Blood Count 14.3 K/mm3 (4.4-11.0)
[2020-04-16] MEDS: Lidocaine 1% (20 ml mdv) 20 ML Vial INFILT (06:48)
[2020-04-16 06:59] LABS: International Normalized Ratio 1.1; Prothrombin Time (Protime)PT. 13.3 SECONDS (11.7-14.9)
[2020-04-16 07:52] VITALS: BP 129/84; PULSE 88; RESP 16; O2SAT 96
[2020-04-16 08:00] VITALS: BP 135/86; PULSE 96; RESP 20; O2SAT 99
[2020-04-16 08:00] LABS: ALB/GLOB Ratio 1.1 RATIO (0.9-2.4); AST(SGOT) 46 U/L (15-37); Alanine Aminotransfer ALT/SGPT 47 U/L (13-56); Albumin, Serum 3.7 g/dL (3.2-5.0); Alkaline Phosphatase 93 U/L (45-117); Anion Gap 9 (5-15); BUN 14 mg/dL (7-18); BUN/Creat Ratio 19.4 RATIO (10-20); Chloride 102 mmol/L (98-107); Creatinine, Serum 0.72 mg/dL (0.55-1.02); EST Glomerular Filtration Rate 84 mL/min (>60); Est Glom Filt Rate - Afr Amer 102 mL/min (>60); Globulin 3.5 g/dL (2.2-4.2); Glucose 114 mg/dL (74-106); Potassium 3.2 mmol/L (3.5-5.1); Protein, Total 7.2 g/dL (6.4-8.2); Sodium Level 137 mmol/L (136-145)
[2020-04-16 09:00] VITALS: BP 158/80; PULSE 81; RESP 16; O2SAT 99
[2020-04-16] MEDS: Morphine 2 MG/ML Syringe IV (09:22)
[2020-04-16 09:23] VITALS: BP 158/81; PULSE 81; RESP 16; TEMP 36.1; O2SAT 100
== END 2020-04-16 09:32 | disposition short-term general hospital (02) ==
LOC: ED 07:43
PROVIDERS: Emergency Provider Emergency Medicine; PCP Family Medicine
DX: S06.5X9A Traumatic subdural hemorrhage with loss of consciousness of unspecified duration, initial encounter (principal); W19.XXXA Unspecified fall, initial encounter; S01.111A Laceration without foreign body of right eyelid and periocular area, initial encounter; F10.10 Alcohol abuse, uncomplicated; E03.9 Hypothyroidism, unspecified; I10 Essential (primary) hypertension; Z82.49 Family history of ischemic heart disease and other diseases of the circulatory system; Z82.61 Family history of arthritis; Z83.49 Family history of other endocrine, nutritional and metabolic diseases; Z85.3 Personal history of malignant neoplasm of breast; Z85.820 Personal history of malignant melanoma of skin; Z87.891 Personal history of nicotine dependence; Z88.8 Allergy status to other drugs, medicaments and biological substances; Z90.12 Acquired absence of left breast and nipple; Z91.81 History of falling
CPT/HCPCS: 12011; 36591; 70450; 70486; 71045; 72125; 80053; 80320; 85025; 85610; 93005; 96374; 99285; A4216; G0480

== ENCOUNTER → 2020-05-06 13:53 | Outpatient (CLI) | payer MEDICARE, BC, SELFPAY ==
[2020-04-25 09:09] VITALS: BMI 24.5
--- NOTE | 2020-05-06 14:03 | CT_ITS ---
STUDY: CT BRAIN WITHOUT CONTRAST REASON FOR EXAM: Female, 74 years old. FOLLOW UP ON RIGHT SUBDURAL HEMATOMA FROM A FALL RADIATION DOSAGE (If Supplied By Facility): CTDIvol = ( 44.99 ) mGy, DLP = ( 812.98 ) mGycm TECHNIQUE: Transaxial CT imaging of the brain was performed without administration of intravenous contrast material. Individualized dose optimization techniques were used for this CT. COMPARISON: Comparison is made with prior study dated 04/16/2020. FINDINGS: Normal soft tissue structures. Normal calvarium. There is mild cerebral atrophy with widening of the extra-axial spaces and ventricular dilatation. Normal white matter tracts of the cerebral hemispheres. Stable small lacunar infarct in the insular cortex of the left temporal lobe. Normal brainstem. Normal cerebellum. There is no intracranial hemorrhage. The small right subdural hematoma as resolved. There are no findings of an acute ischemic infarction. Normal visualized paranasal sinuses. CT/Brain/Head without Contrast IMPRESSION: Chronic involutional changes of the brain. Electronically Signed: Franki Glez, at 14:21 EST , Service support ,
[2020-05-06 14:45] LABS: Absolute Lymphocyte Count 1.19 X10^3/uL (0.83-4.51); Absolute Neutrophil Count 6.3 X10^3/uL (2.0-7.7); Basophil# 0.07 X10^3/uL; Basophil% 0.8 % (0-1); Eosinophil# 0.26 X10^3/uL; Hematocrit 36.6 % (37-47); Hemoglobin 11.9 g/dL (12.0-15.0); Lymphocyte # 1.19 X10^3/ul (4.0); Lymphocyte % 13.9 % (19-41); Mean Corp Hgb Conc 32.5 g/dL (32-36); Mean Corpuscular Hgb 32.9 pg (27.0-32.0); Mean Corpuscular Volume 101.1 fL (81-99); Mean Platelet Vol. 10.3 fl (6.2-12.0); Monocyte# 0.74 X10^3/uL; Monocyte% 8.6 % (0-10); NRBC Flagged by Analyzer 0 % (0-5); Neutrophil # 6.29 X10^3/uL (2.7-7.7); Neutrophil % 73.5 % (47-70); Platelet Count 277 K/mm3 (150-450); RBC Distribution Width SD 48.8 fl (35.1-43.9); Red Blood Count 3.62 M/mm3 (4.2-5.4); White Blood Count 8.6 K/mm3 (4.4-11.0)
[2020-05-06 15:16] LABS: ALB/GLOB Ratio 0.9 RATIO (0.9-2.4); AST(SGOT) 29 U/L (15-37); Alanine Aminotransfer ALT/SGPT 35 U/L (13-56); Albumin, Serum 3.5 g/dL (3.2-5.0); Alkaline Phosphatase 96 U/L (45-117); Anion Gap 5 (5-15); BUN 20 mg/dL (7-18); BUN/Creat Ratio 18.2 RATIO (10-20); Calcium,Total 8.3 mg/dL (8.5-10.1); Chloride 101 mmol/L (98-107); EST Glomerular Filtration Rate 52 mL/min (>60); Est Glom Filt Rate - Afr Amer 63 mL/min (>60); Free T3 2.1 pg/mL (2.18-3.98); Globulin 3.9 g/dL (2.2-4.2); Glucose 139 mg/dL (74-106); Potassium 3.8 mmol/L (3.5-5.1); Protein, Total 7.4 g/dL (6.4-8.2); Sodium Level 136 mmol/L (136-145); T4 Free Direct 1.09 ng/dL (0.76-1.46); Thyroid Stim Hormone (TSH) 6.33 uIU/mL (0.358-3.74)
[2020-05-06 15:24] LABS: PTHIN 34.9 pg/mL (18.4-80.1)
== END ==
PROVIDERS: PCP Family Medicine; Referring Provider Family Medicine; Visit Provider Family Medicine
DX: S06.5X9D Traumatic subdural hemorrhage with loss of consciousness of unspecified duration, subsequent encounter (principal); E03.9 Hypothyroidism, unspecified; Z51.81 Encounter for therapeutic drug level monitoring; E87.6 Hypokalemia; E83.42 Hypomagnesemia
CPT/HCPCS: 36591; 70450; 80053; 83970; 84439; 84443; 84481; 85025; A4216

== ENCOUNTER → 2020-06-03 13:48 | Outpatient (CLI) | payer MEDICARE, BC, SELFPAY ==
[2020-04-25 09:09] VITALS: BMI 24.5
--- NOTE | 2020-06-03 13:51 | CT_ITS ---
STUDY: CT BRAIN WITHOUT CONTRAST REASON FOR EXAM: Female, 74 years old. FALL WITH SUBDURAL 04/16/20. PAIN TO RIGHT FRONTAL AREA RADIATION DOSAGE (If Supplied By Facility): CTDIvol = ( 60.81 ) mGy, DLP = ( 1089.89 ) mGycm TECHNIQUE: Transaxial CT imaging of the brain was performed without administration of intravenous contrast material. Individualized dose optimization techniques were used for this CT. COMPARISON: Comparison is made with prior study dated 05/06/2020. FINDINGS: Normal soft tissue structures. Normal calvarium. There is mild cerebral atrophy with widening of the extra-axial spaces and ventricular dilatation. Normal white matter tracts of the cerebral hemispheres. Normal basal ganglia and thalami. Normal brainstem. Normal cerebellum. There is no intracranial hemorrhage. There are no findings of an acute ischemic infarction. Calcific plaques at the level of the cavernous carotids. Normal visualized paranasal sinuses. CT/Brain/Head without Contrast IMPRESSION: Chronic involutional changes of the brain. Electronically Signed: Franki Glez MD at 14:52 EST , Service support ,
== END ==
PROVIDERS: PCP Family Medicine; Referring Provider Family Medicine; Visit Provider Family Medicine
DX: S06.5X9A Traumatic subdural hemorrhage with loss of consciousness of unspecified duration, initial encounter (principal); G44.329 Chronic post-traumatic headache, not intractable; R41.3 Other amnesia
CPT/HCPCS: 70450

== ENCOUNTER → 2020-07-29 09:48 | Outpatient (CLI) | payer MEDICARE, BC, SELFPAY ==
[2020-04-25 09:09] VITALS: BMI 24.5
[2020-07-29 10:39] LABS: Free T3 2.5 pg/mL (2.18-3.98); T4 Free Direct 1.23 ng/dL (0.76-1.46)
[2020-07-29 18:13] LABS: Xtra Tube EP Lab EXTRA TUBE
== END ==
PROVIDERS: PCP Family Medicine; Referring Provider Family Medicine; Visit Provider Family Medicine
DX: E03.9 Hypothyroidism, unspecified (principal)
CPT/HCPCS: 84439; 84443; 84481; 96523; A4216

== ENCOUNTER → 2020-08-16 09:36 | Outpatient (CLI) | payer MEDICARE, BC, SELFPAY ==
[2020-08-01 15:36] VITALS: BMI 24.3
--- NOTE | 2020-08-16 10:10 | RAD_ITS ---
STUDY: X-RAY - RIGHT SHOULDER REASON FOR EXAM: Female, 74 years old. SHOULDER PAIN,HO SHOULDER SURGERY TECHNIQUE: 4 view(s) of the shoulder. COMPARISON: 05/29/2018 FINDINGS: Normal glenohumeral articulation. Normal acromioclavicular joint. Normal acromion. Healed fracture of the humeral neck after open reduction internal fixation with a anterior plate and screws. The soft tissue structures are unremarkable. Normal visualized pulmonary apex. RAD/Shoulder min 2 Views IMPRESSION: Healed humeral neck fracture after open reduction internal fixation. Electronically Signed: Colten Simms MD at 8:12 EDT Tel , Service support ,
--- NOTE | 2020-08-16 10:10 | RAD_ITS ---
STUDY: X-RAY - CERVICAL SPINE REASON FOR EXAM: Female, 74 years old. R SHOULDER PAIN, HO R SHOULDER SURGERY TECHNIQUE: 5 view(s) of the cervical spine were obtained. COMPARISON: None FINDINGS: Normal anterior atlantoaxial articulation. Normal odontoid process. There is straightening of the normal cervical lordosis. 5 mm of anterolisthesis of C4 on C5, 2 mm of anterolisthesis of C5 on C6 and 2 mm retrolisthesis of C6 on C7. There is multi-level endplate spondylosis. There is multi-level degenerative disc disease with multilevel disc space narrowing. There is multi-level osseous foraminal stenosis. The soft tissue structures are unremarkable. RAD/Cerv Spine 2 or 3 Views IMPRESSION: Moderate diffuse degenerative disc disease with subluxation and straightening of the normal lordotic curvature as described above. Electronically Signed: Colten Simms MD at 8:16 EDT Tel , Service support ,
== END ==
PROVIDERS: PCP Family Medicine; Referring Provider Family Medicine; Visit Provider Family Medicine
DX: M25.511 Pain in right shoulder (principal); M54.12 Radiculopathy, cervical region
CPT/HCPCS: 72040; 73030

== ENCOUNTER → 2020-10-04 09:57 | Outpatient (CLI) | payer MEDICARE, BC, SELFPAY ==
[2020-08-01 15:36] VITALS: BMI 24.3
[2020-10-04 10:56] LABS: T4 Free Direct 1.16 ng/dL (0.76-1.46); Thyroid Stim Hormone (TSH) 1.63 uIU/mL (0.358-3.74)
== END ==
PROVIDERS: PCP Family Medicine; Referring Provider Internal Medicine Endocrinology, Diabetes & Metabolism; Visit Provider Internal Medicine Endocrinology, Diabetes & Metabolism
DX: R53.81 Other malaise (principal); E03.9 Hypothyroidism, unspecified; E89.2 Postprocedural hypoparathyroidism
CPT/HCPCS: 36591; 82310; 84439; 84443; A4216

== ENCOUNTER → 2020-12-06 13:23 | Outpatient (CLI) | payer MEDICARE, BC, SELFPAY ==
[2020-08-01 15:36] VITALS: BMI 24.3
[2020-12-06 14:13] LABS: T4 Free Direct 1.02 ng/dL (0.76-1.46); Thyroid Stim Hormone (TSH) 1.98 uIU/mL (0.358-3.74)
[2020-12-06 21:47] LABS: Xtra Tube EP Lab EXTRA TUBE
== END ==
PROVIDERS: PCP Family Medicine; Referring Provider Internal Medicine Endocrinology, Diabetes & Metabolism; Visit Provider Internal Medicine Endocrinology, Diabetes & Metabolism
DX: E89.0 Postprocedural hypothyroidism (principal)
CPT/HCPCS: 36591; 84439; 84443; A4216

== ENCOUNTER 2021-01-01 10:06 | Emergency (ER) | payer MEDICARE, BC, SELFPAY ==
[2021-01-01 10:08] VITALS: BP 134/85; PULSE 89; RESP 15; TEMP 36.1; O2SAT 100; BMI 23.8
--- NOTE | 2021-01-01 10:20 | EX.ED.DYSGE1 ---
HPI History of Present Illness Chief Complaint: Bite Detail of Chief Complaint: Stung by multiple bees on Saturday Informant: patient Onset/Context/Timing Onset: Days (December 30) Context: Sudden Onset Quality: Redness and swelling Location: Left forearm and ankles Current Severity: Mild Maximum Severity: Mild Worsened by: Nothing Relieved by: Improves with cortisone 10 lotion Associated Symptoms Associated Symptoms: No systemic symptoms Narrative Narrative: Patient is an elderly woman who was stung multiple times by bees to the upper and lower extremity. She denies swelling of her lip, tongue or throat. Denies change in voice. She denies cardiac respiratory symptoms. Denies orthostatic symptoms. She denies vomiting or diarrhea. She has no other complaints. She states she has been applying cortisone 10 lotion which diminishes her itching for a short period of time. Prior similar symptoms: No Recent Illness/Hospitalization: No PFSH PFSH Medical History Anxiety Arthritis Back problem Bladder infection Bone fracture Breast cancer Breast lump BROKEN ARM REPAIR Calcium deficiency Cancer Depression Glaucoma High cholesterol High triglycerides HTN (hypertension) Hypothyroidism Parathyroid abnormality Pneumonia Postsurgical hypoparathyroidism Postsurgical hypothyroidism Rheumatoid arthritis Skin cancer Home Medications buspirone 5 mg tablet tablet PO 08/01/20 [History Last Taken Unknown] calcitriol 0.5 mcg capsule 0.5 mcg PO DAILY #90 cap 08/01/20 [Rx Last Taken Unknown] clonazepam 1 mg tablet 1 mg PO DAILY tablet 08/01/20 [History Last Taken Unknown] famotidine 10 mg tablet 10 mg PO DAILY 08/01/20 [History Last Taken Unknown] folic acid-vit B6-vit B12 2.5 mg-25 mg-1 mg tablet ea PO 08/01/20 [History Last Taken Unknown] indapamide 1.25 mg tablet ea PO 08/01/20 [History Last Taken Unknown] letrozole 2.5 mg tablet ea PO 08/01/20 [History Last Taken Unknown] levothyroxine 125 mcg tablet 125 mcg PO DAILY #90 tablet 08/01/20 [Rx Last Taken Unknown] nortriptyline 50 mg capsule 20 mg PO BID cap 08/01/20 [History Last Taken Unknown] oxycodone 5 mg tablet 10 mg PO BID tablet 08/01/20 [History Last Taken Unknown] phenazopyridine 200 mg tablet 200 mg PO TID 08/01/20 [History Last Taken Unknown] phenazopyridine 200 mg tablet ea PO 08/01/20 [History Last Taken Unknown] potassium chloride 20 mEq tablet,extended release(part/cryst) ea PO 08/01/20 [History Last Taken Unknown] valacyclovir 1 gram tablet ea PO 08/01/20 [History Last Taken Unknown] famotidine [Pepcid] 20 mg PO BID #10 tab 01/01/21 [Rx Last Taken Unknown] Allergy/AdvReac Type Severity Reaction Status Date / Time bacitracin Allergy Unknown Unknown Verified 08/01/20 15:43 [From Neosporin ([id number])] diphenhydramine Allergy Unknown Unknown Verified 08/01/20 15:43 [From Benadryl] neomycin Allergy Unknown Unknown Verified 08/01/20 15:43 [From Neosporin ([id number])] polymyxin B Allergy Unknown Unknown Verified 08/01/20 15:43 [From Neosporin ([id number])] Family History Unknown Thyroid disorder Cancer High cholesterol Arthritis Other Alcohol abuse Anxiety Depression Heart disease Hypertension Mental disorder Parkinson disease Psychiatric care Suicidal intent Surgical History H/O mastectomy H/O thyroidectomy Status post glaucoma surgery Social History (Updated 01/01/21 @ 10:[address] Jorge Cardona MD) household members: none Smoking Status: Former smoker second hand exposure: Yes alcohol intake: never substance use type: does not use ROS ROS ED Constitutional Constitutional ED: Denies chills, fever(s) or subjective Eyes Eyes: Denies blurry vision or change in vision ENT ENT ED: Denies rhinorrhea or sore throat Cardiovascular Cardiovascular: Denies chest pain or palpitations Respiratory/Chest Respiratory/Chest: Denies dyspnea or dyspnea on exertion Gastrointestinal Gastrointestinal: Denies abdominal pain, diarrhea, nausea or vomiting Integumentary Reports rash; Denies abscess or Abrasions Neurologic Neurologic: Denies paresthesias or weakness Allergic/Immunologic Allergic/Immunologic ED: Denies mouth swelling, tongue swelling or urticaria EXAM Physical Exam Const Vital Signs: 01/01/21 10:08 Temperature 96.9 F L Temperature Source Temporal Pulse Rate 89 Respiratory Rate 15 Blood Pressure 134/85 H Blood Pressure Mean 101 Pulse Ox 100 Oxygen Delivery Method Room Air Positive well nourished and well developed General Appearance ED: well developed and NAD; Negative for cyanotic, diaphoretic or pallor HEENT HEENT Narrative: Head is atraumatic normocephalic. Ears normal. Nares patent. There is no evidence of angioedema. Eyes PERRL and EOMs intact bilaterally General Eye ED: Negative for pale conjunctiva or scleral icterus Neck no lymphadenopathy, supple and no JVD Neck Narrative: Trachea is midline. There is no in-store expiratory stridor. Resp normal respiratory effort and clear to auscultation bilaterally Cardio regular rate, regular rhythm, S1 normal heart sound, S2 normal heart sound and no murmurs GI normal to inspection, nondistended, normoactive bowel sounds, non-tender and non-distended Palpation: soft Back/Spine no CVA tenderness Extremity normal to inspection Extremity Narrative: Local allergic reaction with mild swelling left arm and ankles General Extremety ED: Yes other findings; Negative for edema or tenderness General Extremity: other findings; Negative for edema Neuro oriented x3 and CN's II-XII intact bilaterally Sensorium / Orientation: alert Psych mental status grossly normal Skin no wounds General Skin Exam: Negative for jaundice or pallor Rashes: rashes noted Mild erythema due to local allergic reaction from hymenoptera envenomation MDM MDM MDM Narrative Medical decision making narrative: Patient presents with local reaction to hymenoptera envenomation. There is no systemic symptoms. Patient was treated with Pepcid and discharged home. Discharge Plan Triage Chief Complaint: Bite ED Provider: Jorge Cardona Dx/Rx/DC Orders Clinical Impression: Allergic reaction to bee sting Instructions: Allergy Overview Prescriptions: New famotidine [Pepcid] 20 mg tablet 20 mg PO BID Qty: 10 RF: 0 No Action valacyclovir 1 gram tablet PO RF: 0 letrozole 2.5 mg tablet PO RF: 0 indapamide 1.25 mg tablet PO RF: 0 potassium chloride 20 mEq tablet,ER particles/crystals PO RF: 0 folic acid-vit B6-vit B12 2.5-25-1 mg tablet PO RF: 0 oxycodone 5 mg tablet 10 mg PO BID RF: 0 phenazopyridine 200 mg tablet PO RF: 0 buspirone 5 mg tablet PO RF: 0 nortriptyline 50 mg capsule 20 mg PO BID RF: 0 phenazopyridine 200 mg tablet 200 mg PO TID RF: 0 famotidine 10 mg tablet 10 mg PO DAILY RF: 0 clonazepam 1 mg tablet 1 mg PO DAILY RF: 0 levothyroxine 125 mcg tablet 125 mcg PO DAILY Qty: 90 RF: 3 calcitriol 0.5 mcg capsule 0.5 mcg PO DAILY Qty: 90 RF: 3 Primary Care Provider: Erica Richardson Referrals: Erica Richardson DO [Primary Care Provider] - 1 Week if not improving Disposition Disposition: Home, Self Care
[2021-01-01] MEDS: Famotidine 20 MG Tablet PO (10:41)
== END 2021-01-01 10:53 | disposition home or self-care (01) ==
PROVIDERS: Emergency Provider Emergency Medicine; PCP Family Medicine
DX: T63.441A Toxic effect of venom of bees, accidental (unintentional), initial encounter (principal); E78.00 Pure hypercholesterolemia, unspecified; E78.1 Pure hyperglyceridemia; E89.0 Postprocedural hypothyroidism; F32.9 Major depressive disorder, single episode, unspecified; F41.9 Anxiety disorder, unspecified; H40.9 Unspecified glaucoma; I10 Essential (primary) hypertension; M06.9 Rheumatoid arthritis, unspecified; Z87.891 Personal history of nicotine dependence
CPT/HCPCS: 99283

== ENCOUNTER 2021-01-10 17:14 | Emergency (ER) | payer MEDICARE, BC, SELFPAY ==
[2021-01-10 17:15] VITALS: BP 126/106; PULSE 83; RESP 18; TEMP 36.8; O2SAT 95; BMI 25.7
--- NOTE | 2021-01-10 18:24 | EDS_ITS ---
HPI History of Present Illness Chief Complaint: Rash Narrative Narrative: Patient presenting secondary to a reaction to a bee sting. She was stung 2 days ago multiple times in her left arm and now has a spreading red itchy rash. She denies any lip or tongue swelling. She denies any shortness of breath. She denies any prior history of allergy to bee sting. Patient has been taking Benadryl with minimal relief. Review of systems otherwise negative. [facility] Medical History Anxiety Arthritis Back problem Bladder infection Bone fracture Breast cancer Breast lump BROKEN ARM REPAIR Calcium deficiency Cancer Depression Glaucoma High cholesterol High triglycerides HTN (hypertension) Hypothyroidism Parathyroid abnormality Pneumonia Postsurgical hypoparathyroidism Postsurgical hypothyroidism Rheumatoid arthritis Skin cancer Home Medications buspirone 5 mg tablet tablet PO 08/01/20 [History Last Taken Unknown] calcitriol 0.5 mcg capsule 0.5 mcg PO DAILY #90 cap 08/01/20 [Rx Last Taken Unknown] clonazepam 1 mg tablet 1 mg PO DAILY tablet 08/01/20 [History Last Taken Unknown] famotidine 10 mg tablet 10 mg PO DAILY 08/01/20 [History Last Taken Unknown] folic acid-vit B6-vit B12 2.5 mg-25 mg-1 mg tablet ea PO 08/01/20 [History Last Taken Unknown] indapamide 1.25 mg tablet ea PO 08/01/20 [History Last Taken Unknown] letrozole 2.5 mg tablet ea PO 08/01/20 [History Last Taken Unknown] levothyroxine 125 mcg tablet 125 mcg PO DAILY #90 tablet 08/01/20 [Rx Last Taken Unknown] nortriptyline 50 mg capsule 20 mg PO BID cap 08/01/20 [History Last Taken Unknown] oxycodone 5 mg tablet 10 mg PO BID tablet 08/01/20 [History Last Taken Unknown] phenazopyridine 200 mg tablet 200 mg PO TID 08/01/20 [History Last Taken Unknown] phenazopyridine 200 mg tablet ea PO 08/01/20 [History Last Taken Unknown] potassium chloride 20 mEq tablet,extended release(part/cryst) ea PO 08/01/20 [History Last Taken Unknown] valacyclovir 1 gram tablet ea PO 08/01/20 [History Last Taken Unknown] famotidine [Pepcid] 20 mg PO BID #10 tab 01/01/21 [Rx Last Taken Unknown] prednisone 40 mg PO DAILY #6 tab 01/10/21 [Rx Last Taken Unknown] Allergy/AdvReac Type Severity Reaction Status Date / Time bacitracin Allergy Unknown Unknown Verified 01/10/21 17:15 [From Neosporin ([id number])] neomycin Allergy Unknown Unknown Verified 01/10/21 17:15 [From Neosporin ([id number])] polymyxin B Allergy Unknown Unknown Verified 01/10/21 17:15 [From Neosporin ([id number])] Family History Unknown Thyroid disorder Cancer High cholesterol Arthritis Other Alcohol abuse Anxiety Depression Heart disease Hypertension Mental disorder Parkinson disease Psychiatric care Suicidal intent Surgical History H/O mastectomy H/O thyroidectomy Status post glaucoma surgery Social History household members: none Smoking Status: Former smoker second hand exposure: Yes alcohol intake: never substance use type: does not use ROS ROS ED Constitutional Constitutional ED: Denies chills or fever(s) ENT ENT ED: Denies rhinorrhea Cardiovascular Cardiovascular: Denies chest pain Respiratory/Chest Respiratory/Chest: Denies cough or dyspnea Gastrointestinal Gastrointestinal: Denies abdominal pain, diarrhea, nausea or vomiting Genitourinary Genitourinary ED: Denies dysuria or hematuria Musculoskeletal Musculoskeletal: Denies back pain Integumentary Reports rash Neurologic Neurologic: Denies paresthesias or weakness Psychiatric Psychiatric: Denies depression Endocrine Endocrinology: Denies fatigue Allergic/Immunologic Allergic/Immunologic ED: Denies urticaria EXAM Physical Exam Const Vital Signs: 01/10/21 17:15 Temperature 98.3 F Temperature Source Temporal Pulse Rate 83 Respiratory Rate 18 Blood Pressure 126/106 H Blood Pressure Mean 112 Pulse Ox 95 Oxygen Delivery Method Room Air Positive well nourished and well developed General Appearance ED: well developed and NAD HEENT Reports moist mucous membranes Negative for trauma or tenderness Eyes EOMs intact bilaterally Neck no lymphadenopathy, supple and no JVD Chest Wall inspection of chest normal Resp normal respiratory effort and clear to auscultation bilaterally Cardio regular rate, regular rhythm, no murmurs and peripheral pulses 2+ throughout GI normal to inspection, nondistended, normoactive bowel sounds, non-tender and no masses Palpation: soft Back/Spine normal to inspection Extremity normal to inspection General Extremety ED: Negative for tenderness Neuro oriented x3 and no sensory deficits noted Sensorium / Orientation: alert Motor Exam: strength 5/5 throughout Psych mental status grossly normal Skin Skin Narrative: Examination the patient's left arm shows a rash consistent with diffuse urticaria going from the wrist all the way up to the axilla MDM MDM MDM Narrative Medical decision making narrative: Patient presenting secondary to a hypersensitivity reaction to a bee sting. No signs of anaphylaxis. Patient be placed on a burst of steroids. Discharge Plan Triage Chief Complaint: Rash ED Provider: David Almazan Dx/Rx/DC Orders Clinical Impression: Bee sting reaction Instructions: ED BEE STING General Allergic Rxn Prescriptions: New prednisone 20 mg tablet 40 mg PO DAILY Qty: 6 RF: 0 No Action valacyclovir 1 gram tablet PO RF: 0 letrozole 2.5 mg tablet PO RF: 0 indapamide 1.25 mg tablet PO RF: 0 potassium chloride 20 mEq tablet,ER particles/crystals PO RF: 0 folic acid-vit B6-vit B12 2.5-25-1 mg tablet PO RF: 0 oxycodone 5 mg tablet 10 mg PO BID RF: 0 phenazopyridine 200 mg tablet PO RF: 0 buspirone 5 mg tablet PO RF: 0 nortriptyline 50 mg capsule 20 mg PO BID RF: 0 phenazopyridine 200 mg tablet 200 mg PO TID RF: 0 famotidine 10 mg tablet 10 mg PO DAILY RF: 0 clonazepam 1 mg tablet 1 mg PO DAILY RF: 0 levothyroxine 125 mcg tablet 125 mcg PO DAILY Qty: 90 RF: 3 calcitriol 0.5 mcg capsule 0.5 mcg PO DAILY Qty: 90 RF: 3 famotidine [Pepcid] 20 mg tablet 20 mg PO BID Qty: 10 RF: 0 Primary Care Provider: Erica Richardson Referrals: Erica Richardson DO [Primary Care Provider] - As Needed Disposition Disposition: Home, Self Care
[2021-01-10] MEDS: predniSONE 20 MG Tablet 40 MG PO (18:46)
== END 2021-01-10 18:47 | disposition home or self-care (01) ==
LOC: ED 18:32
PROVIDERS: Emergency Provider Emergency Medicine; PCP Family Medicine
DX: T63.441A Toxic effect of venom of bees, accidental (unintentional), initial encounter (principal); M06.9 Rheumatoid arthritis, unspecified; E78.00 Pure hypercholesterolemia, unspecified; E89.0 Postprocedural hypothyroidism; F32.9 Major depressive disorder, single episode, unspecified; F41.9 Anxiety disorder, unspecified; H40.9 Unspecified glaucoma; I10 Essential (primary) hypertension; Z79.52 Long term (current) use of systemic steroids; Z87.891 Personal history of nicotine dependence
CPT/HCPCS: 99283

== ENCOUNTER → 2021-03-08 13:15 | Outpatient (CLI) | payer MEDICARE, BC, SELFPAY ==
[2021-03-08 14:15] LABS: T4 Free Direct 1.26 ng/dL (0.76-1.46); Thyroid Stim Hormone (TSH) 3.37 uIU/mL (0.358-3.74)
== END ==
PROVIDERS: PCP Family Medicine; Referring Provider Internal Medicine Endocrinology, Diabetes & Metabolism; Visit Provider Internal Medicine Endocrinology, Diabetes & Metabolism
DX: E89.0 Postprocedural hypothyroidism (principal)
CPT/HCPCS: 36591; 84439; 84443; A4216

== ENCOUNTER 2021-03-08 14:14 | Observation (INO) | payer MEDICARE, BC, SELFPAY ==
[2021-03-08] VITALS (12 sets, daily range): BP systolic 101–136; BP diastolic 68–91; PULSE 71–83; RESP 13–22; TEMP 36.3–36.9; O2SAT 97–100; BMI 23.1; BMI 23.8
--- NOTE | 2021-03-08 14:31 | CT_ITS ---
EXAM: CT CERVICAL SPINE WITHOUT INTRAVENOUS CONTRAST CLINICAL INDICATION: Traumatic injury. TECHNIQUE: Helically acquired images were obtained of the cervical spine without intravenous contrast. 2D reformatted images were reviewed. This CT exam was performed using one or more of the following dose reduction techniques: automated exposure control, adjustment of the mA and/or kV according to patient size, and/or use of iterative reconstruction technique. This report was created using [employer] technology. COMPARISON: CT cervical spine without contrast 04/16/2020. FINDINGS: VERTEBRAE: Cervical kyphosis is unchanged. Mild degenerative anterolisthesis of C4 on C5 is unchanged. Mild degenerative retrolisthesis of C6 on C7 is unchanged. Moderate pronounced degenerative facet arthropathy of the right C3-C4, right C4-C5 and right C5-C6 facet joints are unchanged. Ankylosis of the bilateral C2-C3 facet joints and right C4-C5 facet joints are unchanged. No fracture. No discrete lytic or blastic abnormality. Normal craniocervical junction and cervicothoracic junction. DISCS/SPINAL CANAL/NEURAL FORAMINA: Mild C6-C7 disc space height narrowing with anterior posterior marginal spurs are unchanged. Mild disc space height narrowing at C4-C5 and C5-C6 disc space levels are unchanged. Normal remaining cervical disc space heights. SOFT TISSUES: Unremarkable. No prevertebral soft tissue swelling. LYMPH NODES: Unremarkable. No cervical adenopathy. LUNG APICES: Subpleural atelectases with air bronchograms in the anterior aspect of the left lung apex with left apical pleural scarring and calcifications are unchanged. CT/Spine Cervical without Contras IMPRESSION: 1. No CT evidence of acute fracture of the cervical spine and the craniocervical junction. 2. Mild degenerative anterolisthesis of C4 on C5 and mild degenerative retrolisthesis of C6 on C7 are unchanged. 3. No interval change when compared to 04/16/2020. Electronically Signed: Alexis Guaman MD at 15:55 EST , Service support ,
--- NOTE | 2021-03-08 14:35 | EDS_ITS ---
HPI History of Present Illness Chief Complaint: Fall Informant: patient Onset/Context/Timing Onset: Today Current Severity: Moderate Maximum Severity: Moderate Narrative Narrative: Patient presents after fall at home. 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 She is obvious deformity to left upper arm. She did strike her head but denies loss of consciousness. She denies any other injury. [facility] Medical History Anxiety Arthritis Back problem Bladder infection Bone fracture Breast cancer Breast lump BROKEN ARM REPAIR Calcium deficiency Cancer Depression Glaucoma High cholesterol High triglycerides HTN (hypertension) Hypothyroidism Parathyroid abnormality Pneumonia Postsurgical hypoparathyroidism Postsurgical hypothyroidism Rheumatoid arthritis Skin cancer Home Medications buspirone 5 mg tablet tablet PO 08/01/20 [History Last Taken Unknown] calcitriol 0.5 mcg capsule 0.5 mcg PO DAILY #90 cap 08/01/20 [Rx Last Taken Unknown] clonazepam 1 mg tablet 1 mg PO DAILY tablet 08/01/20 [History Last Taken Unknown] famotidine 10 mg tablet 10 mg PO DAILY 08/01/20 [History Last Taken Unknown] folic acid-vit B6-vit B12 2.5 mg-25 mg-1 mg tablet ea PO 08/01/20 [History Last Taken Unknown] indapamide 1.25 mg tablet ea PO 08/01/20 [History Last Taken Unknown] letrozole 2.5 mg tablet ea PO 08/01/20 [History Last Taken Unknown] levothyroxine 125 mcg tablet 125 mcg PO DAILY #90 tablet 08/01/20 [Rx Last Taken Unknown] nortriptyline 50 mg capsule 20 mg PO BID cap 08/01/20 [History Last Taken Unknown] oxycodone 5 mg tablet 10 mg PO BID tablet 08/01/20 [History Last Taken Unknown] phenazopyridine 200 mg tablet 200 mg PO TID 08/01/20 [History Last Taken Unknown] phenazopyridine 200 mg tablet ea PO 08/01/20 [History Last Taken Unknown] potassium chloride 20 mEq tablet,extended release(part/cryst) ea PO 08/01/20 [History Last Taken Unknown] valacyclovir 1 gram tablet ea PO 08/01/20 [History Last Taken Unknown] famotidine [Pepcid] 20 mg PO BID #10 tab 01/01/21 [Rx Last Taken Unknown] prednisone 40 mg PO DAILY #6 tab 01/10/21 [Rx Last Taken Unknown] Allergy/AdvReac Type Severity Reaction Status Date / Time bacitracin Allergy Unknown Unknown Verified 03/08/21 14:15 [From Neosporin ([id number])] neomycin Allergy Unknown Unknown Verified 03/08/21 14:15 [From Neosporin ([id number])] polymyxin B Allergy Unknown Unknown Verified 03/08/21 14:15 [From Neosporin ([id number])] Family History Unknown Thyroid disorder Cancer High cholesterol Arthritis Other Alcohol abuse Anxiety Depression Heart disease Hypertension Mental disorder Parkinson disease Psychiatric care Suicidal intent Surgical History H/O mastectomy H/O thyroidectomy Status post glaucoma surgery Social History household members: none Smoking Status: Former smoker second hand exposure: Yes alcohol intake: never substance use type: does not use ROS ROS ED Constitutional Constitutional ED: Denies chills or fever(s) Eyes Eyes: Denies change in vision ENT ENT ED: Denies sore throat Cardiovascular Cardiovascular: Denies chest pain Respiratory/Chest Respiratory/Chest: Denies cough or dyspnea Gastrointestinal Gastrointestinal: Denies abdominal pain, diarrhea, nausea or vomiting Genitourinary Genitourinary ED: Denies dysuria Musculoskeletal Musculoskeletal: Reports arthralgias; Denies back pain Integumentary Denies rash Neurologic Neurologic: Denies headache(s) or weakness Allergic/Immunologic Allergic/Immunologic ED: Denies urticaria EXAM Physical Exam Const Vital Signs: 03/08/21 14:16 03/08/21 14:22 03/08/21 14:58 Temperature 97.4 F L Temperature Source Temporal Pulse Rate 82 83 Pulse Rate [1 (Initial Baseline)] Pulse Rate [2] Pulse Rate [3] Respiratory Rate 16 18 Respiratory Rate [1 (Initial Baseline)] Respiratory Rate [2] Respiratory Rate [3] Respiratory Effort Normal Respiratory Depth Normal Respiratory Pattern Normal Blood Pressure 112/78 112/78 Blood Pressure [1 (Initial Baseline)] Blood Pressure [2] Blood Pressure Mean 89 89 Pulse Ox 97 99 98 Oxygen Delivery Method Room Air Room Air Room Air Oxygen Delivery Method [1 (Initial Baseline)] Oxygen Delivery Method [2] Oxygen Delivery Method [3] Oxygen Flow Rate (L/min) [2] Oxygen Flow Rate (L/min) [3] Fraction of Inspired Oxygen (FIO2) [1 (Initial Baseline)] Fraction of Inspired Oxygen (FIO2) [2] Fraction of Inspired Oxygen (FIO2) [3] 03/08/21 15:47 03/08/21 16:00 03/08/21 16:15 Temperature Temperature Source Pulse Rate 72 78 Pulse Rate [1 (Initial Baseline)] 76 Pulse Rate [2] 75 Pulse Rate [3] 77 Respiratory Rate 14 14 Respiratory Rate [1 (Initial Baseline)] 22 H Respiratory Rate [2] 13 Respiratory Rate [3] 14 Respiratory Effort Respiratory Depth Respiratory Pattern Blood Pressure 113/91 H 106/73 Blood Pressure [1 (Initial Baseline)] 132/76 H Blood Pressure [2] 134/80 H Blood Pressure Mean Pulse Ox 99 100 Oxygen Delivery Method Nasal Cannula Oxygen Delivery Method [1 (Initial Baseline)] Nasal Cannula Oxygen Delivery Method [2] Nasal Cannula Oxygen Delivery Method [3] Nasal Cannula Oxygen Flow Rate (L/min) [2] 3 Oxygen Flow Rate (L/min) [3] 3 Fraction of Inspired Oxygen (FIO2) [1 (Initial Baseline)] 100 Fraction of Inspired Oxygen (FIO2) [2] 100 Fraction of Inspired Oxygen (FIO2) [3] 100 03/08/21 16:19 03/08/21 16:20 03/08/21 16:25 Temperature Temperature Source Pulse Rate 78 82 80 Pulse Rate [1 (Initial Baseline)] Pulse Rate [2] Pulse Rate [3] Respiratory Rate 14 15 16 Respiratory Rate [1 (Initial Baseline)] Respiratory Rate [2] Respiratory Rate [3] Respiratory Effort Respiratory Depth Respiratory Pattern Blood Pressure 106/73 101/81 H 136/82 H Blood Pressure [1 (Initial Baseline)] Blood Pressure [2] Blood Pressure Mean 84 Pulse Ox 99 98 99 Oxygen Delivery Method Room Air Room Air Room Air Oxygen Delivery Method [1 (Initial Baseline)] Oxygen Delivery Method [2] Oxygen Delivery Method [3] Oxygen Flow Rate (L/min) [2] Oxygen Flow Rate (L/min) [3] Fraction of Inspired Oxygen (FIO2) [1 (Initial Baseline)] Fraction of Inspired Oxygen (FIO2) [2] Fraction of Inspired Oxygen (FIO2) [3] Positive well nourished and well developed General Appearance ED: well developed HEENT Reports normocephalic and head/scalp atraumatic Eyes PERRL and EOMs intact bilaterally Neck supple Neck Narrative: No midline cervical tenderness. Chest Wall inspection of chest normal and palpation of chest normal Resp normal respiratory effort and clear to auscultation bilaterally Cardio regular rate and regular rhythm GI normal to inspection, nondistended, normoactive bowel sounds and non-tender GI Narrative: Pelvis stable. Palpation: soft Extremity Extremity Narrative: Obvious deformity of the left upper arm. Palpable distal pulses and can wiggle fingers. Normal sensation. Neuro oriented x3 Sensorium / Orientation: alert Psych mental status grossly normal Skin no rashes or lesions noted MDM MDM MDM Narrative Medical decision making narrative: Patient was given fentanyl and Zofran for pain. Patient sent for CT scan of the head and C-spine along with left upper extremity. Lab work ordered. Lab Data Labs: Laboratory Results - last 24 hr 03/08/21 03/08/21 14:50 14:50 WBC 9.2 RBC 3.53 L Hgb 11.2 L Hct 33.6 L MCV 95.2 MCH 31.7 MCHC 33.3 RDW Std Deviation 48.4 H RDW Coeff of Felix 13.8 Plt Count 287 MPV 11.0 Immature Gran % (Auto) 0.300 Neut % (Auto) 68.2 Lymph % (Auto) 19.9 Casey % (Auto) 7.4 Eos % (Auto) 3.5 Baso % (Auto) 0.7 Absolute Neuts (auto) 6.2 Absolute Lymphs (auto) 1.82 Nucleated RBC % 0 Sodium 130 L Potassium 3.1 L Chloride 102 Carbon Dioxide 20.0 L Anion Gap 8 BUN 21 H Creatinine 0.74 Estim Creat Clear Calc 46.20 Est GFR (MDRD) Af Amer 98 Est GFR (MDRD) Non-Af 81 BUN/Creatinine Ratio 28.3 H Glucose 136 H Calcium 8.2 L Radiography Diagnostic Testing: Clinical Impression(s) from Imaging Studies Cervical Spine CT 03/08/21 14:31 IMPRESSION: 1. No CT evidence of acute fracture of the cervical spine and the craniocervical junction. 2. Mild degenerative anterolisthesis of C4 on C5 and mild degenerative retrolisthesis of C6 on C7 are unchanged. 3. No interval change when compared to 04/16/2020. Electronically Signed: Alexis Guaman MD at 15:55 EST , Service support , Brain CT 03/08/21 15:20 IMPRESSION: There are no acute intracranial findings. Electronically Signed: Niko Quevedo MD at 16:31 EST , Service support , Upper Extremity CT 03/08/21 15:30 IMPRESSION: Comminuted mid left humeral shaft fracture. Electronically Signed: Niko Quevedo MD at 16:34 EST , Service support , Humerus X-Ray 03/08/21 16:25 IMPRESSION: Comminuted mid left humeral fracture. Electronically Signed: Niko Quevedo MD at 16:42 EST , Service support , Treatment and Re-Evaluation Comments:: Knowing that CT scan of head and C-spine were unremarkable patient was consented for procedural sedation. Patient was given total of 40 mg of IV propofol. Patient was removed from the support board from EMS and left arm reduced. She was placed in sling and swath. Postreduction x-rays are reviewed. These are sent to orthopedics for review. He does not feel the patient will require surgery. He did suggest changing her out to a long arm posterior splint. This was performed. Patient lives alone and is very concerned about going home. I will speak with hospitalist regarding overnight observation for pain control and physical therapy. Orthopedics will see her in consult in the hospital. Procedures Other Procedures Procedure(s): Procedural sedation: Patient placed on case packer and sealer with 3 L nasal cannula. A total of 40 mg of IV propofol infused. Start of sedation at 16:07 and completion at 16:13. Total sedation time 6 minutes. Discharge Plan Triage Chief Complaint: Fall ED Provider: Karen Valencia Dx/Rx/DC Orders Clinical Impression: Closed left humeral fracture Prescriptions: No Action valacyclovir 1 gram tablet PO RF: 0 letrozole 2.5 mg tablet PO RF: 0 indapamide 1.25 mg tablet PO RF: 0 potassium chloride 20 mEq tablet,ER particles/crystals PO RF: 0 folic acid-vit B6-vit B12 2.5-25-1 mg tablet PO RF: 0 oxycodone 5 mg tablet 10 mg PO BID RF: 0 phenazopyridine 200 mg tablet PO RF: 0 buspirone 5 mg tablet PO RF: 0 nortriptyline 50 mg capsule 20 mg PO BID RF: 0 phenazopyridine 200 mg tablet 200 mg PO TID RF: 0 famotidine 10 mg tablet 10 mg PO DAILY RF: 0 clonazepam 1 mg tablet 1 mg PO DAILY RF: 0 levothyroxine 125 mcg tablet 125 mcg PO DAILY Qty: 90 RF: 3 calcitriol 0.5 mcg capsule 0.5 mcg PO DAILY Qty: 90 RF: 3 famotidine [Pepcid] 20 mg tablet 20 mg PO BID Qty: 10 RF: 0 prednisone 20 mg tablet 40 mg PO DAILY Qty: 6 RF: 0 Primary Care Provider: Ercia Richardson Referrals: Erica Richardson DO [Primary Care Provider] - Disposition Disposition: Acute Care [facility]
[2021-03-08] MEDS: Ondansetron 4 MG/2 ML Vial IV (14:57)
[2021-03-08] MEDS: fentaNYL 100 MCG/2 ML Ampul 25 MCG IV ×2 (14:57→18:48)
[2021-03-08 15:03] LABS: Absolute Lymphocyte Count 1.82 X10^3/uL (0.83-4.51); Absolute Neutrophil Count 6.2 X10^3/uL (2.0-7.7); Basophil# 0.06 X10^3/uL; Basophil% 0.7 % (0-1); Eosinophil# 0.32 X10^3/uL; Eosinophils% 3.5 % (0-5); Hematocrit 33.6 % (37-47); Hemoglobin 11.2 g/dL (12.0-15.0); Lymphocyte # 1.82 X10^3/ul (0.83-4.51); Lymphocyte % 19.9 % (19-41); Mean Corp Hgb Conc 33.3 g/dL (32-36); Mean Corpuscular Hgb 31.7 pg (27.0-32.0); Mean Corpuscular Volume 95.2 fL (81-99); Monocyte# 0.68 X10^3/uL; Monocyte% 7.4 % (0-10); NRBC Flagged by Analyzer 0 % (0-5); Neutrophil # 6.24 X10^3/uL (2.7-7.7); Neutrophil % 68.2 % (47-70); Platelet Count 287 K/mm3 (150-450); RBC Distribution Width CV 13.8 % (11.6-14.6); RBC Distribution Width SD 48.4 fl (35.1-43.9); Red Blood Count 3.53 M/mm3 (4.2-5.4); White Blood Count 9.2 K/mm3 (4.4-11.0)
[2021-03-08 15:11] LABS: Anion Gap 8 (5-15); BUN 21 mg/dL (7-18); BUN/Creat Ratio 28.3 RATIO (10-20); Calcium,Total 8.2 mg/dL (8.5-10.1); Chloride 102 mmol/L (98-107); Creatinine, Serum 0.74 mg/dL (0.55-1.02); EST Glomerular Filtration Rate 81 mL/min (>60); Est Glom Filt Rate - Afr Amer 98 mL/min (>60); Glucose 136 mg/dL (74-106); Potassium 3.1 mmol/L (3.5-5.1); Sodium Level 130 mmol/L (136-145)
--- NOTE | 2021-03-08 15:20 | CT_ITS ---
STUDY: CT BRAIN WITHOUT CONTRAST REASON FOR EXAM: Female, 75 years old. HEADACHE injury Technologist Notes fall backwards down 3 stairs, no LOC TECHNIQUE: Transaxial CT imaging of the brain was performed without administration of intravenous contrast material. Individualized dose optimization techniques were used for this CT. COMPARISON: 06.03.20 FINDINGS: Normal calvarium. Normal soft tissues. There is mild cerebral atrophy with widening of the extra-axial spaces and ventricular dilatation. There are areas of decreased attenuation within the white matter tracts of the supratentorial brain, consistent with microvascular disease changes. Normal basal ganglia and thalami. Normal brainstem. Normal cerebellum. There is no intracranial hemorrhage. There are no findings of an acute ischemic infarction. Normal visualized paranasal sinuses. ASPECTS 10 CT/Brain/Head without Contrast IMPRESSION: There are no acute intracranial findings. Electronically Signed: Niko Quevedo MD at 16:31 EST , Service support ,
--- NOTE | 2021-03-08 15:30 | CT_ITS ---
EXAM: CT LEFT UPPER EXTREMITY WITHOUT INTRAVENOUS CONTRAST CLINICAL INDICATION: deformity -- left humerus, fall TECHNIQUE: Helically acquired images were obtained of the left upper extremity without intravenous contrast. 2-D reformats were performed by the technologist. This CT exam was performed using one or more of the following dose reduction techniques: automated exposure control, adjustment of the mA and/or kV according to patient size, and/or use of iterative reconstruction technique. This report was created using [employer] report [employer] Nik[employer] technology. COMPARISON: None. FINDINGS: BONES/JOINTS: Comminuted mid left humeral shaft fracture. There is anterior angulation of the fracture. Preservation of the joint space. No sclerotic or destructive changes. SOFT TISSUES: Unremarkable. No soft tissue swelling or gas. No radiopaque foreign body. CT/Extremity Upper without Contra IMPRESSION: Comminuted mid left humeral shaft fracture. Electronically Signed: Niko Quevedo MD at 16:34 EST , Service support ,
[2021-03-08] MEDS: Propofol 200 MG/20 ML Vial IV BOLUS (16:22)
--- NOTE | 2021-03-08 16:25 | RAD_ITS ---
EXAM: XR LEFT HUMERUS, 2 OR MORE VIEWS CLINICAL INDICATION: post-reduction TECHNIQUE: Frontal and lateral views of the left humerus. This report was created using [employer] report generation technology. COMPARISON: None. FINDINGS: BONES/JOINTS: Comminuted mid left humeral fracture. Preservation of the joint space. No sclerotic or destructive changes observed. SOFT TISSUES: Unremarkable. No soft tissue swelling or gas. No radiopaque foreign body. RAD/Humerus min 2 Views IMPRESSION: Comminuted mid left humeral fracture. Electronically Signed: Niko Quevedo MD at 16:42 EST , Service support ,
--- NOTE | 2021-03-08 18:40 | PCM.HP.STD ---
Documented by User: Roberto FARRAR 03/08/21 18:59 HPI - General General Date of Admission: 03/08/21 Date of Service: 03/08/21 Chief Complaint: Left arm fracture s/p fall HPI Narrative AIDEN FIELDS is a 75-year-old male who presents to the [facility] on 03/08/2021 with a chief complaint of left arm fracture status post fall. Patient reports that she was reentering her home and going up 2 steps when she slipped backwards and suffered a fall, at which point she also hit her head. Patient denies any loss of consciousness before or after the fall and friend who witnessed the event confirms that the patient did not did not suffer any loss of consciousness nor did she seem confused thereafter. Patient rated her initial arm pain as an 8 out of 10, but reports that it is controlled on ED medications given. Of note, patient has history of multiple falls for which she attributes to poor balance. Patient denies any history of movement disorder, seizure or stroke. Vital signs obtained in the ED demonstrate a temperature of 97.4 ?F, HR of 82, BP of 112/78, RR of 16 and patient is currently satting 97% on room air. CBC demonstrates WBCs at 9.2, hemoglobin of 11.2 and platelets are currently 287. BMP demonstrates a sodium of 130, potassium of 3.1 and calcium of 8.2. Left humeral x-ray and CT demonstrates comminuted mid left humeral fracture. Brain CT did not demonstrate any evidence of acute intracranial hemorrhage. CT of the cervical spine only demonstrated mild degenerative anterolisthesis of C4 on C5 and mild degenerative retrolisthesis of C6 and C7, no evidence of acute fracture was visualized in the cervical spine. Patient was given fluids in the ED, to which her pain is responsive, orthopedics has agreed to see patient while admitted. [facility] Medical History (Updated 03/08/21 @ 18:52 by Roberto FARRAR) Anxiety Arthritis Back problem Bladder infection Bone fracture Breast cancer Breast lump BROKEN ARM REPAIR Calcium deficiency Cancer Depression Glaucoma High cholesterol High triglycerides HTN (hypertension) Hypothyroidism Parathyroid abnormality Pneumonia Postsurgical hypoparathyroidism Postsurgical hypothyroidism Rheumatoid arthritis Right arm fracture Skin cancer Home Medications buspirone 5 mg tablet 5 tablet PO DAILY 08/01/20 [History Last Taken 03/07/21] calcitriol 0.5 mcg capsule 0.5 mcg PO DAILY #90 cap 08/01/20 [Rx Last Taken 03/08/21] clonazepam 1 mg tablet 1 mg PO DAILY PRN tablet 08/01/20 [History Last Taken 03/08/21] folic acid-vit B6-vit B12 2.5 mg-25 mg-1 mg tablet 1 ea PO DAILY 08/01/20 [History Last Taken 03/08/21] indapamide 1.25 mg tablet 1.25 mg PO DAILY 08/01/20 [History Last Taken 03/08/21] letrozole 2.5 mg tablet 2.5 mg PO DAILY 08/01/20 [History Last Taken 03/08/21] levothyroxine 125 mcg tablet 125 mcg PO DAILY #90 tablet 08/01/20 [Rx Last Taken 03/07/21] nortriptyline 50 mg capsule 50 mg PO QHS cap 08/01/20 [History Last Taken 03/07/21] potassium chloride 20 mEq tablet,extended release(part/cryst) 20 meq PO BID 08/01/20 [History Last Taken 03/08/21] valacyclovir 1 gram tablet 1,000 mg PO DAILY 08/01/20 [History Last Taken 03/08/21] famotidine [Pepcid] 20 mg PO BID 03/08/21 [History Last Taken 03/07/21] hydrocodone-acetaminophen 1 tab PO 4X/DAY 03/08/21 [History Last Taken 03/08/21] lisinopril 10 mg PO DAILY 03/08/21 [History Last Taken 03/08/21] pregabalin 50 mg PO BID 03/08/21 [History Last Taken 03/08/21] Allergy/AdvReac Type Severity Reaction Status Date / Time bacitracin Allergy Unknown Unknown Verified 03/08/21 14:15 [From Neosporin ([id number])] neomycin Allergy Unknown Unknown Verified 03/08/21 14:15 [From Neosporin ([id number])] polymyxin B Allergy Unknown Unknown Verified 03/08/21 14:15 [From Neosporin ([id number])] Family History (Updated 03/08/21 @ 18:49 by Roberto FARRAR) Unknown Thyroid disorder Cancer High cholesterol Arthritis Mother Cancer Diabetes Father , Father at the age of 50 from successful suicide attempt. Suicidal intent Other Alcohol abuse Anxiety Depression Heart disease Hypertension Mental disorder Parkinson disease Psychiatric care Surgical History H/O mastectomy H/O thyroidectomy Status post glaucoma surgery Social History household members: none Smoking Status: Former smoker second hand exposure: Yes alcohol intake: never substance use type: does not use ROS Constitutional Constitutional: Denies anorexia, change in weight, chills, fatigue, fever(s), malaise, night sweats, weakness or other Eyes Eyes: Denies blurry vision, change in eye color, change in vision, discharge from eye(s), double vision, erythema, eye pain, loss of vision or other ENT HEENT: Denies abnormal hearing, dysphagia, ear pain, epistaxis, headache(s), hearing loss, nasal congestion, nasal discharge, post nasal drip, sinus pressure, sore throat or other Cardiovascular Cardiovascular: Denies chest pain, claudication, dyspnea on exertion, edema, lightheadedness, orthopnea, palpitations, paroxysmal nocturnal dyspnea, rapid heart rate, syncope or other Respiratory/Chest Respiratory/Chest: Denies cough, dyspnea, excessive phlegm production, hemoptysis, productive cough, shortness of breath at rest, shortness of breath with exertion, wheezing or other Gastrointestinal Gastrointestinal: Denies abdominal pain, coffee ground emesis, constipation, diarrhea, dyspepsia, hematemesis, hematochezia, loose stools, melena, nausea, vomiting or other Genitourinary Genitourinary: Denies burning urination, difficulty urinating, dysuria, hematuria, nocturia, urinary frequency, urinary hesitancy, urinary incontinence, urinary urgency or other Musculoskeletal Musculoskeletal: Denies arthralgias, back pain, joint pain, joint stiffness, joint swelling, myalgias, neck pain or other Neurologic Neurologic: Reports abnormal gait and disequilibrium; Denies abnormal speech, confusion, dizziness, focal weakness, headache(s), numbness, paresthesias, seizure-like activity, seizures, syncope, tingling, tremor(s) or other Psychiatric Psychiatric: Denies anxiety, depression, homicidal ideation, suicidal ideation or other Endocrine Endocrinology: Denies change in body appearance, cold intolerance, excessive sweating, heat intolerance, polydipsia, polyuria or other Hematologic/Lymphatic Hematologic/Lymphatic: Denies anemia, easy bleeding, easy bruising, lymphadenopathy or other Allergic/Immunologic Allergic/Immunologic: Denies rhinitis, hives, eczemia, asthma or other Vital Signs Vital Signs Vital Signs: 03/08/21 14:16 03/08/21 14:22 03/08/21 14:58 Temperature 97.4 F L Temperature Source Temporal Pulse Rate 82 83 Pulse Rate [1 (Initial Baseline)] Pulse Rate [2] Pulse Rate [3] Respiratory Rate 16 18 Respiratory Rate [1 (Initial Baseline)] Respiratory Rate [2] Respiratory Rate [3] Respiratory Effort Normal Respiratory Depth Normal Respiratory Pattern Normal Blood Pressure 112/78 112/78 Blood Pressure [1 (Initial Baseline)] Blood Pressure [2] Blood Pressure Mean 89 89 Pulse Ox 97 99 98 Oxygen Delivery Method Room Air Room Air Room Air Oxygen Delivery Method [1 (Initial Baseline)] Oxygen Delivery Method [2] Oxygen Delivery Method [3] Oxygen Flow Rate (L/min) [2] Oxygen Flow Rate (L/min) [3] Fraction of Inspired Oxygen (FIO2) [1 (Initial Baseline)] Fraction of Inspired Oxygen (FIO2) [2] Fraction of Inspired Oxygen (FIO2) [3] 03/08/21 15:47 03/08/21 16:00 03/08/21 16:15 Temperature Temperature Source Pulse Rate 72 78 Pulse Rate [1 (Initial Baseline)] 76 Pulse Rate [2] 75 Pulse Rate [3] 77 Respiratory Rate 14 14 Respiratory Rate [1 (Initial Baseline)] 22 H Respiratory Rate [2] 13 Respiratory Rate [3] 14 Respiratory Effort Respiratory Depth Respiratory Pattern Blood Pressure 113/91 H 106/73 Blood Pressure [1 (Initial Baseline)] 132/76 H Blood Pressure [2] 134/80 H Blood Pressure Mean Pulse Ox 99 100 Oxygen Delivery Method Nasal Cannula Oxygen Delivery Method [1 (Initial Baseline)] Nasal Cannula Oxygen Delivery Method [2] Nasal Cannula Oxygen Delivery Method [3] Nasal Cannula Oxygen Flow Rate (L/min) [2] 3 Oxygen Flow Rate (L/min) [3] 3 Fraction of Inspired Oxygen (FIO2) [1 (Initial Baseline)] 100 Fraction of Inspired Oxygen (FIO2) [2] 100 Fraction of Inspired Oxygen (FIO2) [3] 100 03/08/21 16:19 03/08/21 16:20 03/08/21 16:25 Temperature Temperature Source Pulse Rate 78 82 80 Pulse Rate [1 (Initial Baseline)] Pulse Rate [2] Pulse Rate [3] Respiratory Rate 14 15 16 Respiratory Rate [1 (Initial Baseline)] Respiratory Rate [2] Respiratory Rate [3] Respiratory Effort Respiratory Depth Respiratory Pattern Blood Pressure 106/73 101/81 H 136/82 H Blood Pressure [1 (Initial Baseline)] Blood Pressure [2] Blood Pressure Mean 84 Pulse Ox 99 98 99 Oxygen Delivery Method Room Air Room Air Room Air Oxygen Delivery Method [1 (Initial Baseline)] Oxygen Delivery Method [2] Oxygen Delivery Method [3] Oxygen Flow Rate (L/min) [2] Oxygen Flow Rate (L/min) [3] Fraction of Inspired Oxygen (FIO2) [1 (Initial Baseline)] Fraction of Inspired Oxygen (FIO2) [2] Fraction of Inspired Oxygen (FIO2) [3] Weight Weight: 143 lb 0.011 oz Body Mass Index (BMI) 23.1 Physical Exam Const alert and oriented x3 General Appearance: cooperative HEENT normocephalic, head/scalp atraumatic, hearing grossly normal bilaterally and moist oral mucous membranes Eyes PERRL, EOMs intact bilaterally and conjunctivae normal Neck no lymphadenopathy, supple and no JVD Resp normal respiratory effort, no retractions, no use of accessory muscles and clear to auscultation bilaterally Cardio regular rate, no murmurs and no JVD GI normal to inspection, nondistended, normoactive bowel sounds, soft to palpation and non-tender Extremity Extremity Narrative: Left arm has been appropriately bandaged and stabilized in the ED. Skin no rashes or lesions noted, no wounds, skin turgor normal and no jaundice Neuro CN's II-XII intact bilaterally Psych affect normal Results Lab / Micro Data Result Diagrams: 03/08/21 14:50 03/08/21 14:50 Labs: Laboratory Results - last 24 hr 03/08/21 14:50: WBC 9.2, RBC 3.53 L, Hgb 11.2 L, Hct 33.6 L, MCV 95.2, MCH 31.7, MCHC 33.3, RDW Std Deviation 48.4 H, RDW Coeff of Felix 13.8, Plt Count 287, MPV 11.0, Immature Gran % (Auto) 0.300, Neut % (Auto) 68.2, Lymph % (Auto) 19.9, [place] % (Auto) 7.4, Eos % (Auto) 3.5, Baso % (Auto) 0.7, Absolute Neuts (auto) 6.2, Absolute Lymphs (auto) 1.82, Nucleated RBC % 0 03/08/21 14:50: Sodium 130 L, Potassium 3.1 L, Chloride 102, Carbon Dioxide 20.0 L, Anion Gap 8, BUN 21 H, Creatinine 0.74, Estim Creat Clear Calc 46.20, Est GFR (MDRD) Af Amer 98, Est GFR (MDRD) Non-Af 81, BUN/Creatinine Ratio 28.3 H, Glucose 136 H, Calcium 8.2 L Radiology Impression Cervical Spine CT 03/08/21 14:31 IMPRESSION: 1. No CT evidence of acute fracture of the cervical spine and the craniocervical junction. 2. Mild degenerative anterolisthesis of C4 on C5 and mild degenerative retrolisthesis of C6 on C7 are unchanged. 3. No interval change when compared to 04/16/2020. Electronically Signed: Alexis Guaman MD at 15:55 EST , Service support , Brain CT 03/08/21 15:20 IMPRESSION: There are no acute intracranial findings. Electronically Signed: Niko Quevedo MD at 16:31 EST , Service support , Upper Extremity CT 03/08/21 15:30 IMPRESSION: Comminuted mid left humeral shaft fracture. Electronically Signed: Niko Quevedo MD at 16:34 EST , Service support , Humerus X-Ray 03/08/21 16:25 IMPRESSION: Comminuted mid left humeral fracture. Electronically Signed: Niko Quevedo MD at 16:42 EST , Service support , Assessment & Plan Assessment/Plan (1) Closed left humeral fracture: PLAN: Patient is a 75-year-old female who presents to the ED at [facility] on 03/08[facility]2021 with a chief complaint of left arm fracture status post fall. Patient will be admitted for evaluation of arm fracture by orthopedics. 1) comminuted mid left humeral fracture status post fall Patient suffered a fall earlier today down 2 steps and broke her arm. Patient does endorse hitting her head, denies any loss of consciousness before or after the event. Patient has a history of multiple falls, denies any history of movement disorder. Attributes her history of falls to disequilibrium. Left arm x-ray demonstrates comminuted left humeral fracture. Other imaging is without acute findings. Patient's pain is reports of to fentanyl in the ED. Plan; admit to [facility], orthopedics consult ordered, heart healthy diet ordered, CBC and BMP in a.m., PT/OT eval ordered, CBC and BMP in a.m., magnesium and phosphorus ordered, Tylenol, OxyIR and Dilaudid ordered for pain, other as needed medications ordered. CODE STATUS: Full code Advance care planning: Patient's healthcare power of real estate attorney is patient's daughter Patricia, and is to make decisions for patient in the event that she cannot do so for herself. DVT prophylaxis - Lovenox Patient seen by Roberto Hanson PA-C, under the supervision of Dr. Chanel. Documented by User: Dr. Bandar Chanel MD 03/08/21 19:43 HPI - General General Date of Admission: 03/08/21 Date of Service: 03/08/21 Chief Complaint: Fall with resultant fracture of left humerus HPI Narrative Patient is 75-year-old female with multiple comorbidities listed below came to ER after she fell backward and hit her head and neck. She said she missed her step as described above. She denies loss of consciousness. Her left arm got twisted. In ED, she had an extensive imaging including CT head and C-spine which did not show any acute abnormality but degenerative changes in C-spine. Patient left arm x-ray and then CT shows comminuted mid left humerus shaft fracture. This was taken care of by ER physician with close reduction under light sedation, fentanyl IV. ER physician also talked to Dr. Broderick, orthopedic surgeon and he agreed to see tomorrow a.m. Patient had no urine output after fall. She denies burning micturition. Denies any recent alteration of bowel habit. She has history of frequent fall. [facility] Medical History (Updated 03/08/21 @ 18:52 by Roberto FARRAR) Anxiety Arthritis Back problem Bladder infection Bone fracture Breast cancer Breast lump BROKEN ARM REPAIR Calcium deficiency Cancer Depression Glaucoma High cholesterol High triglycerides HTN (hypertension) Hypothyroidism Parathyroid abnormality Pneumonia Postsurgical hypoparathyroidism Postsurgical hypothyroidism Rheumatoid arthritis Right arm fracture Skin cancer Home Medications buspirone 5 mg tablet 5 tablet PO DAILY 08/01/20 [History Last Taken 03/07/21] calcitriol 0.5 mcg capsule 0.5 mcg PO DAILY #90 cap 08/01/20 [Rx Last Taken 03/08/21] clonazepam 1 mg tablet 1 mg PO DAILY PRN tablet 08/01/20 [History Last Taken 03/08/21] folic acid-vit B6-vit B12 2.5 mg-25 mg-1 mg tablet 1 ea PO DAILY 08/01/20 [History Last Taken 03/08/21] indapamide 1.25 mg tablet 1.25 mg PO DAILY 08/01/20 [History Last Taken 03/08/21] letrozole 2.5 mg tablet 2.5 mg PO DAILY 08/01/20 [History Last Taken 03/08/21] levothyroxine 125 mcg tablet 125 mcg PO DAILY #90 tablet 08/01/20 [Rx Last Taken 03/07/21] nortriptyline 50 mg capsule 50 mg PO QHS cap 08/01/20 [History Last Taken 03/07/21] potassium chloride 20 mEq tablet,extended release(part/cryst) 20 meq PO BID 08/01/20 [History Last Taken 03/08/21] valacyclovir 1 gram tablet 1,000 mg PO DAILY 08/01/20 [History Last Taken 03/08/21] famotidine [Pepcid] 20 mg PO BID 03/08/21 [History Last Taken 03/07/21] hydrocodone-acetaminophen 1 tab PO 4X/DAY 03/08/21 [History Last Taken 03/08/21] lisinopril 10 mg PO DAILY 03/08/21 [History Last Taken 03/08/21] pregabalin 50 mg PO BID 03/08/21 [History Last Taken 03/08/21] Allergy/AdvReac Type Severity Reaction Status Date / Time bacitracin Allergy Unknown Unknown Verified 03/08/21 14:15 [From Neosporin ([id number])] neomycin Allergy Unknown Unknown Verified 03/08/21 14:15 [From Neosporin ([id number])] polymyxin B Allergy Unknown Unknown Verified 03/08/21 14:15 [From Neosporin ([id number])] Family History (Updated 03/08/21 @ 18:49 by Roberto FARRAR) Unknown Thyroid disorder Cancer High cholesterol Arthritis Mother Cancer Diabetes Father , Father at the age of 50 from successful suicide attempt. Suicidal intent Other Alcohol abuse Anxiety Depression Heart disease Hypertension Mental disorder Parkinson disease Psychiatric care Surgical History H/O mastectomy H/O thyroidectomy Status post glaucoma surgery Social History household members: none Smoking Status: Former smoker second hand exposure: Yes alcohol intake: never substance use type: does not use Physical Exam Narrative General: Alert, Oriented x3, Cooperative HEENT: Atraumatic, PERRLA, EOMI, Normocephalic Oral: No Gingival or Mucosal Lesions/ Ulcerations Neck: No obvious tenderness/bruise/hematoma or swelling over head and back of neck. Supple, No JVD, Negative Carotid Bruits Lungs: Air entry diminished in bilateral lung bases. No crepitation/rhonchi Cardiovascular: Regular rate, Regular Rhythm, Normal S1, Normal S2, No murmurs Abdomen: Bowel Sounds Present, Soft, Non Tender, Non-Distended : Spontaneously voided urine after fall. No renal angle tenderness. No suprapubic tenderness. Extremities: No edema, Capillary Refill Less than 3 Seconds Skin: No rashes, No breakdown Musculoskeletal: Tenderness over the left upper arm. Left upper arm is wrapped with Mayank wrap bandage. No Tenderness to Palpation of Joints of lower extremities Neurological: Cranial nerves II-XII grossly intact, DTR 2+/4 Psych/Mental Status: Normal Affect, Appropriate. Results Lab / Micro Data Result Diagrams: 03/08/21 14:50 03/08/21 14:50 Assessment & Plan Assessment/Plan (1) Closed left humeral fracture: PLAN: This patient was seen in conjunction with CHARAN Rios. I have independently interviewed and examined the patient and reviewed pertinent history, examination findings, laboratory and plan of management. I have reviewed the note and agree with the documented findings with the few additional points. In brief, patient is admitted after fall with resultant comminuted mid left shaft humerus fracture. She has history of frequent fall. She says he has arthritis in lower extremities, history of disequilibrium PT and OT. Orthopedic surgeon is consulted. Patient has mild hypokalemia and potassium is being replaced. Magnesium and phosphorus labs ordered. Pain control. See history of left breast cancer status post mastectomy. Currently she is not on chemotherapy but on letrozole. Other comorbidities include hypertension, hypothyroidism, peripheral neuropathy and vitamin D deficiency. Home meds reconciliation done. Living will/advanced directive/end of life care: Patient does have living will or advanced directive. Healthcare power of real estate attorney is Patricia her daughter. After discussion of benefits/risks procedures involved with full code, DNR CC arrest and DNR CC, the patient opted for full code Patient doeswant artificial life support including intubation, tube feed, ventilator and/chest compression, central venous catheter, vasopressor and DC shock if needed Total time spent in [id number] encounter in discussion of advanced directive 16 minutes. I have discussed my assessment with CHARAN Rios and orders have been reviewed. Charges/Coding Visit Charges OBSV E&M: 86418 Initial observation care L3 Procedures Hospitalists Procedures: 20549 Advncd Care Plan 30 Min
[2021-03-08] MEDS: 0.9% Normal Saline 1,000 ML 100 ML IV (21:10)
[2021-03-08] MEDS: Pregabalin 50 MG Capsule PO (21:23)
[2021-03-08] MEDS: Famotidine 20 MG Tablet PO (21:23)
[2021-03-08] MEDS: HYDROmorphone 0.5 MG/0.5 ML SYRINGE IV (21:24)
[2021-03-08] MEDS: Potassium Chloride Oral Tablet 20 MEQ 40 MEQ PO (21:24)
[2021-03-08] MEDS: clonazePAM 1 MG Tablet PO (21:30)
[2021-03-08] MEDS: Nortriptyline 25 MG Capsule 50 MG PO (21:46)
[2021-03-08 21:51] LABS: Magnesium 2.1 mg/dL (1.6-2.6)
[2021-03-08 21:55] LABS: Phosphorus 3.1 mg/dL (2.5-4.9)
[2021-03-08] MEDS: Acetaminophen 325 MG Tablet 650 MG PO (22:10)
[2021-03-08] MEDS: oxyCODONE 5 MG Tablet PO (22:10)
[2021-03-09 03:27] VITALS: BP 104/69; PULSE 82; RESP 18; TEMP 36.6; O2SAT 97
[2021-03-09] MEDS: oxyCODONE 5 MG Tablet PO ×3 (03:28→16:31)
[2021-03-09] MEDS: HYDROmorphone 0.5 MG/0.5 ML SYRINGE IV ×3 (04:34→14:21)
[2021-03-09] MEDS: Glycerin/Hypromellose/PEG400 15 ml Bottle 2 DRP EACH EYE (04:34)
[2021-03-09] MEDS: Levothyroxine 125 MCG Tablet PO (05:56)
[2021-03-09] MEDS: Acetaminophen 325 MG Tablet 650 MG PO ×2 (05:56→16:31)
[2021-03-09 06:25] LABS: Absolute Lymphocyte Count 2.01 X10^3/uL (0.83-4.51); Absolute Neutrophil Count 5.1 X10^3/uL (2.0-7.7); Basophil# 0.04 X10^3/uL; Basophil% 0.5 % (0-1); Eosinophil# 0.27 X10^3/uL; Eosinophils% 3.2 % (0-5); Hematocrit 31.8 % (37-47); Hemoglobin 10.5 g/dL (12.0-15.0); Lymphocyte # 2.01 X10^3/ul (0.83-4.51); Mean Corpuscular Hgb 31.6 pg (27.0-32.0); Mean Corpuscular Volume 95.8 fL (81-99); Mean Platelet Vol. 10.6 fl (6.2-12.0); Monocyte# 0.95 X10^3/uL; Monocyte% 11.3 % (0-10); NRBC Flagged by Analyzer 0 % (0-5); Neutrophil % 60.8 % (47-70); Platelet Count 257 K/mm3 (150-450); RBC Distribution Width SD 49.7 fl (35.1-43.9); Red Blood Count 3.32 M/mm3 (4.2-5.4); White Blood Count 8.4 K/mm3 (4.4-11.0)
[2021-03-09 07:06] LABS: Anion Gap 5 (5-15); BUN 14 mg/dL (7-18); Calcium,Total 7.7 mg/dL (8.5-10.1); Chloride 106 mmol/L (98-107); Creatinine, Serum 0.61 mg/dL (0.55-1.02); EST Glomerular Filtration Rate 102 mL/min (>60); Est Glom Filt Rate - Afr Amer 124 mL/min (>60); Glucose 112 mg/dL (74-106); Potassium 3.5 mmol/L (3.5-5.1); Sodium Level 138 mmol/L (136-145)
[2021-03-09 07:38] VITALS: O2SAT 96
[2021-03-09] MEDS: Acyclovir 200 MG Capsule 400 MG PO (09:06)
[2021-03-09] MEDS: Famotidine 20 MG Tablet PO (09:07)
[2021-03-09] MEDS: Pregabalin 50 MG Capsule PO (09:07)
[2021-03-09] MEDS: Calcitriol 0.25 MCG Capsule 0.5 MCG PO (09:07)
[2021-03-09] MEDS: busPIRone 5 MG Tablet PO (09:07)
[2021-03-09] MEDS: Vitamin B Comp W-C Capsule 1 CAP PO (09:07)
[2021-03-09] MEDS: Potassium Chloride Oral Tablet 20 MEQ PO (09:08)
[2021-03-09] MEDS: Enoxaparin 40 MG/0.4 ML Syringe SC (09:08)
[2021-03-09 09:21] VITALS: BP 98/61; PULSE 85; RESP 18; TEMP 36.4; O2SAT 96
[2021-03-09 10:45] VITALS: BP 112/74
[2021-03-09] MEDS: Lisinopril 10 MG Tablet PO (10:48)
--- NOTE | 2021-03-09 11:07 | CONS.ORTHO ---
HPI Consult Data Date of Consult: 03/09/21 HPI Narrative HPI Narrative: AIDEN FIELDS, is a 75 F who presents after mechanical fall onto her left upper extremity last evening 03/08/2021. She also reports head injury which she states was very mild without loss of consciousness. She denies any continued headache, nausea or vomiting. She reports significant pain in her left upper arm. Denies prior issues with her left upper extremity. Patient is right-hand dominant. Patient was reduced by the emergency room physician last evening and placed in a long-arm splint. She was admitted under the service of the hospitalist for pain control. I was asked see the patient in consultation. I was notified from the emergency department about the patient. She denies any numbness or tingling left upper extremity. Patient does use a cane to get around at baseline due to balance issues which she typically uses in her right hand. [facility] Medical History (Updated 03/08/21 @ 20:33 by Evonne Gao) Anxiety Arthritis Back problem Bladder infection Bone fracture Breast cancer Breast lump BROKEN ARM REPAIR Calcium deficiency Cancer Depression Depression Glaucoma High cholesterol High triglycerides HTN (hypertension) Hypothyroidism Parathyroid abnormality Pneumonia Postsurgical hypoparathyroidism Postsurgical hypothyroidism Rheumatoid arthritis Right arm fracture Skin cancer Home Medications buspirone 5 mg tablet 5 tablet PO DAILY 08/01/20 [History Last Taken 03/07/21] calcitriol 0.5 mcg capsule 0.5 mcg PO DAILY #90 cap 08/01/20 [Rx Last Taken 03/08/21] clonazepam 1 mg tablet 1 mg PO DAILY PRN tablet 08/01/20 [History Last Taken 03/08/21] folic acid-vit B6-vit B12 2.5 mg-25 mg-1 mg tablet 1 ea PO DAILY 08/01/20 [History Last Taken 03/08/21] indapamide 1.25 mg tablet 1.25 mg PO DAILY 08/01/20 [History Last Taken 03/08/21] letrozole 2.5 mg tablet 2.5 mg PO DAILY 08/01/20 [History Last Taken 03/08/21] levothyroxine 125 mcg tablet 125 mcg PO DAILY #90 tablet 08/01/20 [Rx Last Taken 03/07/21] nortriptyline 50 mg capsule 50 mg PO QHS cap 08/01/20 [History Last Taken 03/07/21] potassium chloride 20 mEq tablet,extended release(part/cryst) 20 meq PO BID 08/01/20 [History Last Taken 03/08/21] valacyclovir 1 gram tablet 1,000 mg PO DAILY 08/01/20 [History Last Taken 03/08/21] famotidine [Pepcid] 20 mg PO BID 03/08/21 [History Last Taken 03/07/21] hydrocodone-acetaminophen 1 tab PO 4X/DAY 03/08/21 [History Last Taken 03/08/21] lisinopril 10 mg PO DAILY 03/08/21 [History Last Taken 03/08/21] pregabalin 50 mg PO BID 03/08/21 [History Last Taken 03/08/21] dexamethasone sodium phosphate 1 drp OPHTHALMIC (EYE) BID 03/09/21 [History Last Taken 03/08/21 06:00] Allergy/AdvReac Type Severity Reaction Status Date / Time bacitracin Allergy Unknown Unknown Verified 03/08/21 14:15 [From Neosporin ([id number])] neomycin Allergy Unknown Unknown Verified 03/08/21 14:15 [From Neosporin ([id number])] polymyxin B Allergy Unknown Unknown Verified 03/08/21 14:15 [From Neosporin ([id number])] Family History (Updated 03/08/21 @ 18:49 by Roberto FARRAR) Unknown Thyroid disorder Cancer High cholesterol Arthritis Mother Cancer Diabetes Father , Father at the age of 50 from successful suicide attempt. Suicidal intent Other Alcohol abuse Anxiety Depression Heart disease Hypertension Mental disorder Parkinson disease Psychiatric care Surgical History H/O mastectomy H/O thyroidectomy Status post glaucoma surgery Social History household members: none Smoking Status: Former smoker second hand exposure: Yes alcohol intake: never substance use type: does not use ROS ROS Narrative 10 point review of systems obtained, negative unless otherwise noted in HPI. Vital Signs Vital Signs Vital Signs: 03/08/21 14:16 03/08/21 14:22 03/08/21 14:58 Temperature 97.4 F L Temperature Source Temporal Pulse Rate 82 83 Pulse Rate [1 (Initial Baseline)] Pulse Rate [2] Pulse Rate [3] Respiratory Rate 16 18 Respiratory Rate [1 (Initial Baseline)] Respiratory Rate [2] Respiratory Rate [3] Respiratory Effort Normal Respiratory Depth Normal Respiratory Pattern Normal Blood Pressure 112/78 112/78 Blood Pressure [1 (Initial Baseline)] Blood Pressure [2] Blood Pressure [BP] Blood Pressure Mean 89 89 Blood Pressure Mean [BP] Blood Pressure Source Blood Pressure Source [BP] Blood Pressure Position Blood Pressure Location Pulse Ox 97 99 98 Oxygen Delivery Method Room Air Room Air Room Air Oxygen Delivery Method [1 (Initial Baseline)] Oxygen Delivery Method [2] Oxygen Delivery Method [3] Oxygen Flow Rate (L/min) [2] Oxygen Flow Rate (L/min) [3] Fraction of Inspired Oxygen (FIO2) [1 (Initial Baseline)] Fraction of Inspired Oxygen (FIO2) [2] Fraction of Inspired Oxygen (FIO2) [3] 03/08/21 15:47 03/08/21 16:00 03/08/21 16:15 Temperature Temperature Source Pulse Rate 72 78 Pulse Rate [1 (Initial Baseline)] 76 Pulse Rate [2] 75 Pulse Rate [3] 77 Respiratory Rate 14 14 Respiratory Rate [1 (Initial Baseline)] 22 H Respiratory Rate [2] 13 Respiratory Rate [3] 14 Respiratory Effort Respiratory Depth Respiratory Pattern Blood Pressure 113/91 H 106/73 Blood Pressure [1 (Initial Baseline)] 132/76 H Blood Pressure [2] 134/80 H Blood Pressure [BP] Blood Pressure Mean Blood Pressure Mean [BP] Blood Pressure Source Blood Pressure Source [BP] Blood Pressure Position Blood Pressure Location Pulse Ox 99 100 Oxygen Delivery Method Nasal Cannula Oxygen Delivery Method [1 (Initial Baseline)] Nasal Cannula Oxygen Delivery Method [2] Nasal Cannula Oxygen Delivery Method [3] Nasal Cannula Oxygen Flow Rate (L/min) [2] 3 Oxygen Flow Rate (L/min) [3] 3 Fraction of Inspired Oxygen (FIO2) [1 (Initial Baseline)] 100 Fraction of Inspired Oxygen (FIO2) [2] 100 Fraction of Inspired Oxygen (FIO2) [3] 100 03/08/21 16:19 03/08/21 16:20 03/08/21 16:25 Temperature Temperature Source Pulse Rate 78 82 80 Pulse Rate [1 (Initial Baseline)] Pulse Rate [2] Pulse Rate [3] Respiratory Rate 14 15 16 Respiratory Rate [1 (Initial Baseline)] Respiratory Rate [2] Respiratory Rate [3] Respiratory Effort Respiratory Depth Respiratory Pattern Blood Pressure 106/73 101/81 H 136/82 H Blood Pressure [1 (Initial Baseline)] Blood Pressure [2] Blood Pressure [BP] Blood Pressure Mean 84 Blood Pressure Mean [BP] Blood Pressure Source Blood Pressure Source [BP] Blood Pressure Position Blood Pressure Location Pulse Ox 99 98 99 Oxygen Delivery Method Room Air Room Air Room Air Oxygen Delivery Method [1 (Initial Baseline)] Oxygen Delivery Method [2] Oxygen Delivery Method [3] Oxygen Flow Rate (L/min) [2] Oxygen Flow Rate (L/min) [3] Fraction of Inspired Oxygen (FIO2) [1 (Initial Baseline)] Fraction of Inspired Oxygen (FIO2) [2] Fraction of Inspired Oxygen (FIO2) [3] 03/08/21 18:51 03/08/21 20:41 03/08/21 21:52 Temperature 98.5 F 97.4 F L Temperature Source Temporal Temporal Pulse Rate 79 71 Pulse Rate [1 (Initial Baseline)] Pulse Rate [2] Pulse Rate [3] Respiratory Rate 16 18 Respiratory Rate [1 (Initial Baseline)] Respiratory Rate [2] Respiratory Rate [3] Respiratory Effort Normal Non-Labored Respiratory Depth Normal Respiratory Pattern Normal Blood Pressure 123/68 H 122/68 H Blood Pressure [1 (Initial Baseline)] Blood Pressure [2] Blood Pressure [BP] Blood Pressure Mean 86 86 Blood Pressure Mean [BP] Blood Pressure Source Monitor Blood Pressure Source [BP] Blood Pressure Position Semi-Fowlers Blood Pressure Location Right Arm Pulse Ox 97 98 Oxygen Delivery Method Room Air Room Air Room Air Oxygen Delivery Method [1 (Initial Baseline)] Oxygen Delivery Method [2] Oxygen Delivery Method [3] Oxygen Flow Rate (L/min) [2] Oxygen Flow Rate (L/min) [3] Fraction of Inspired Oxygen (FIO2) [1 (Initial Baseline)] Fraction of Inspired Oxygen (FIO2) [2] Fraction of Inspired Oxygen (FIO2) [3] 03/08/21 21:53 03/09/21 03:27 03/09/21 07:38 Temperature 97.9 F Temperature Source Oral Pulse Rate 82 Pulse Rate [1 (Initial Baseline)] Pulse Rate [2] Pulse Rate [3] Respiratory Rate 18 Respiratory Rate [1 (Initial Baseline)] Respiratory Rate [2] Respiratory Rate [3] Respiratory Effort Respiratory Depth Respiratory Pattern Blood Pressure 104/69 Blood Pressure [1 (Initial Baseline)] Blood Pressure [2] Blood Pressure [BP] Blood Pressure Mean 80 Blood Pressure Mean [BP] Blood Pressure Source Monitor Blood Pressure Source [BP] Blood Pressure Position Supine Blood Pressure Location Right Arm Pulse Ox 98 97 96 Oxygen Delivery Method Room Air Room Air Room Air Oxygen Delivery Method [1 (Initial Baseline)] Oxygen Delivery Method [2] Oxygen Delivery Method [3] Oxygen Flow Rate (L/min) [2] Oxygen Flow Rate (L/min) [3] Fraction of Inspired Oxygen (FIO2) [1 (Initial Baseline)] Fraction of Inspired Oxygen (FIO2) [2] Fraction of Inspired Oxygen (FIO2) [3] 03/09/21 08:00 03/09/21 09:21 03/09/21 10:45 Temperature 97.6 F L Temperature Source Oral Pulse Rate 85 Pulse Rate [1 (Initial Baseline)] Pulse Rate [2] Pulse Rate [3] Respiratory Rate 18 Respiratory Rate [1 (Initial Baseline)] Respiratory Rate [2] Respiratory Rate [3] Respiratory Effort Normal Non-Labored Respiratory Depth Normal Respiratory Pattern Normal Blood Pressure 98/61 Blood Pressure [1 (Initial Baseline)] Blood Pressure [2] Blood Pressure [BP] 112/74 Blood Pressure Mean 73 Blood Pressure Mean [BP] 86 Blood Pressure Source Monitor Blood Pressure Source [BP] Monitor Blood Pressure Position Sitting Blood Pressure Location Pulse Ox 96 Oxygen Delivery Method Room Air Room Air Oxygen Delivery Method [1 (Initial Baseline)] Oxygen Delivery Method [2] Oxygen Delivery Method [3] Oxygen Flow Rate (L/min) [2] Oxygen Flow Rate (L/min) [3] Fraction of Inspired Oxygen (FIO2) [1 (Initial Baseline)] Fraction of Inspired Oxygen (FIO2) [2] Fraction of Inspired Oxygen (FIO2) [3] Weight Weight: 148 lb 5.938 oz Body Mass Index (BMI) 23.8 Physical Exam Narrative General -A&Ox3, NAD, appears stated age. Vital signs stable, afebrile. Respiratory -normal work of breathing, no intercostal retractions. CV -pulses regular, brisk capillary refill ?4 limbs. Abdomen-soft, nontender, nondistended. No guarding, rigidity, rebound tenderness. Musculoskeletal/neurologic -full range of motion nontender throughout right upper extremity, bilateral lower extremities with full sensation and strength in all dermatomes and myotomes. No midline cervical tenderness. Left upper [id number]-[id number] fiberglass splint in place with a sling. Cardinal motions left hand are intact. Median, ulnar, superficial branch of the radial nerve sensation is intact to light touch about the left hand. She is able to flex and extend her wrist on command. Pain with movement of the shoulder. No pain with passive stretch of the digits. Lab / Micro Data Result Diagrams: 03/09/21 06:15 03/09/21 06:15 Labs: Laboratory Results - last 24 hr 03/08/21 14:50: WBC 9.2, RBC 3.53 L, Hgb 11.2 L, Hct 33.6 L, MCV 95.2, MCH 31.7, MCHC 33.3, RDW Std Deviation 48.4 H, RDW Coeff of Felix 13.8, Plt Count 287, MPV 11.0, Immature Gran % (Auto) 0.300, Neut % (Auto) 68.2, Lymph % (Auto) 19.9, [place] % (Auto) 7.4, Eos % (Auto) 3.5, Baso % (Auto) 0.7, Absolute Neuts (auto) 6.2, Absolute Lymphs (auto) 1.82, Nucleated RBC % 0 03/08/21 14:50: Sodium 130 L, Potassium 3.1 L, Chloride 102, Carbon Dioxide 20.0 L, Anion Gap 8, BUN 21 H, Creatinine 0.74, Estim Creat Clear Calc 46.20, Est GFR (MDRD) Af Amer 98, Est GFR (MDRD) Non-Af 81, BUN/Creatinine Ratio 28.3 H, Glucose 136 H, Calcium 8.2 L 03/08/21 21:30: Magnesium 2.1 03/08/21 21:30: Phosphorus 3.1 03/09/21 06:15: WBC 8.4, RBC 3.32 L, Hgb 10.5 L, Hct 31.8 L, MCV 95.8, MCH 31.6, MCHC 33.0, RDW Std Deviation 49.7 H, RDW Coeff of Felix 14.0, Plt Count 257, MPV 10.6, Immature Gran % (Auto) 0.200, Neut % (Auto) 60.8, Lymph % (Auto) 24.0, [place] % (Auto) 11.3 H, Eos % (Auto) 3.2, Baso % (Auto) 0.5, Absolute Neuts (auto) 5.1, Absolute Lymphs (auto) 2.01, Nucleated RBC % 0 03/09/21 06:15: Sodium 138, Potassium 3.5, Chloride 106, Carbon Dioxide 27.0, Anion Gap 5, BUN 14, Creatinine 0.61, Estim Creat Clear Calc 46.20, Est GFR (MDRD) Af Amer 124, Est GFR (MDRD) Non-Af 102, BUN/Creatinine Ratio 23.0 H, Glucose 112 H, Calcium 7.7 L Radiology Impression Cervical Spine CT 03/08/21 14:31 IMPRESSION: 1. No CT evidence of acute fracture of the cervical spine and the craniocervical junction. 2. Mild degenerative anterolisthesis of C4 on C5 and mild degenerative retrolisthesis of C6 on C7 are unchanged. 3. No interval change when compared to 04/16/2020. Electronically Signed: Alexis Guaman MD at 15:55 EST , Service support , Brain CT 03/08/21 15:20 IMPRESSION: There are no acute intracranial findings. Electronically Signed: Niko Quevedo MD at 16:31 EST , Service support , Upper Extremity CT 03/08/21 15:30 IMPRESSION: Comminuted mid left humeral shaft fracture. Electronically Signed: Niko Quevedo MD at 16:34 EST , Service support , Humerus X-Ray 03/08/21 16:25 IMPRESSION: Comminuted mid left humeral fracture. Electronically Signed: Niko Quevedo MD at 16:42 EST , Service support , Assessment & Plan Assessment/Plan (1) Closed left humeral fracture: PLAN: Patient sustained a closed injury resulting in a left midshaft humerus fracture. Fracture was reduced by the emergency room physician. Residual angulation is approximately 20 degrees and malrotated. Given the high rate of union with diaphyseal humeral shaft fractures, I recommended at least initial management with nonoperative management with splinting and transition to humeral fracture brace. Plan to follow-up in the office with me either 03/13/2021 or 03/15/2021 to transition to a Alonzo fracture brace. Plan of care was discussed with the patient at length. I will order the patient some Flexeril as she appears to be having some muscle spasm related pain. I will sign off at this point. Please call with any questions or concerns if they arise. Follow-up as above. Nonweightbearing left upper extremity. Maintain splint till follow-up keep it clean dry and intact.
[2021-03-09] MEDS: Indapamide 2.5 MG Tablet 1.25 MG PO (11:17)
--- NOTE | 2021-03-09 12:00 | CASEMGMT ---
Social Work Assessment Referral Date: 03/09/2021 Date of Assessment: 03/09/2021 Reason for consult: Possibly SNF placement Informant: SW Personal Status: SW met with pt to complete initial assessment. SW introduced self and role at [facility]. Pt is alert and orientated x3, answers questions appropriately. Living Arrangements: Pt states that she lives alone in a three story home (including the attic). Pt states she has three steps to enter the home with no railings by the steps. Pt states that her in September 2020. SW offered support to pt. Pt states that she also has a dog at home. PCP: Erica Richardson Pharmacy: [facility] Specialists: Dr. Pinon: Oncology ADLs: Pt states she was previously independent with ALDs, states that she goes up to her attic to wrap Stella presents. DME: Pt states that she uses a cane and has a walker but she puts clothes on it. Transportation: Pt's friend Yumi Advanced Directives: Pt states she has completed both HCPOA and LW. Pt states her daughter Patricia is HCPOA. Substance Abuse Hx: Pt states that she used to smoke cigarettes. Mental Health Hx: Pt states history of Anxiety and Depression. Pt states that she takes Klonopin. Pt states that when she has someone to talk to she feels better. Pt states that she's never been in counseling. Pt states that she talks to her sister marky who is a nurse counselor. SW offered to provide pt with grief counseling resources and pt denied. Pt denied any history of suicidal thoughts/plans/ideations. Pt denied any current suicidal thoughts/plans/ideations. HHC: None SNF: None Cancer: Pt states that she has history of breast cancer. Pt states that she takes a chemo pill monthly that is prescribed through her oncologist. SW spoke with pt about discharge plans. Pt states that she plans on returning home. SW spoke with pt about HHC. Pt states that her friend Yumi has an HHC company, pt unsure of name. Pt states that she would like to go home and discuss HHC with Yumi. SW informed pt that [facility] can arrange HHc before pt returns home. SW informed pt that PADILLA CONNER can speak to her about HHC. Pt states understanding. [place] updated PADILLA CONNER. Plan: Home with HHC Leena Olsen HIGH REACH OPERATOR, PROJECT SCHEDULER
[2021-03-09] MEDS: clonazePAM 1 MG Tablet PO (14:21)
--- NOTE | 2021-03-09 15:05 | CASEMGMT ---
Addendum entered by Diane Roberts 03/09/21 15:56: Received tc back from Angélica at [facility], they are able to accept pt. Therapy eval'd pt. Addendum entered by Diane Roberts 03/09/21 15:25: PADILLA CONNER back into pt room to make aware of dc this date. Pt states she now does want HHC. She wants someone to stay with her for periods of time for assistance. Made her aware that this is private duty and this RN DALILA could provide her with a list of agencies and this is self pay. Pt is not interested in this any longer. Made pt aware this RN DALILA could set her up with therapy for safety evals in the home as well as social work and an aide. Pt is agreeable to this. Patient was provided a list of [facility] providers including quality and resource use data and consistent with the patient?s preferred geographic region, medical needs, and insurance network. The patient?s preferred provider is [facility]. She states they have seen her in the past. TC to Angélica at [facility] to make referral, will await acceptance. Spoke with therapy and requested eval to be completed per hospitalist request. Original Note: PADILLA CONNER in to discuss [facility] form with patient. PADILLA CONNER explained [facility] form, patient voiced understanding. Pt signed form and filed in chart. Pt provided with a copy of signed [facility] form. Discussed with patient homecare. She states that at this time, she does not feel that she needs homecare. She states she would like to stay in the hospital until Saturday and then she can go home and care for herself. Therapy has not worked with her yet at this time. Notified hospitalist of pt request.
--- NOTE | 2021-03-09 16:07 | PCM.DC ---
Discharge Instructions Diet Discharge Diet: No restrictions Activity Discharge Activity: - (use cane) Weight Bearing Status: No weight bearing Keep extremity elevated above heart level: Left Arm Follow Up Care Test Results: Test results from this visit will be discussed in further detail at your follow-up appointment, if applicable. Discharge Plan Admission Admit Date/Time: 03/08/21 18:18 Primary Reason for Your Visit: debility, humerus fracture Attending Provider: Froy Velázquez Primary Care Provider: Erica Richardson Consulting Providers: Stanley Broderick Discharge Orders/Prescriptions Prescriptions: New oxycodone 5 mg Tablet 5 mg PO Q6H PRN (Reason: pain) 3 Days Qty: 12 RF: 0 cyclobenzaprine 5 mg Tablet 5 mg PO TID PRN PRN (Reason: Muscle Spasm) Qty: 10 RF: 0 Continued valacyclovir 1 gram tablet 1,000 mg PO DAILY RF: 0 letrozole 2.5 mg tablet 2.5 mg PO DAILY RF: 0 indapamide 1.25 mg tablet 1.25 mg PO DAILY RF: 0 potassium chloride 20 mEq tablet,ER particles/crystals 20 meq PO BID RF: 0 folic acid-vit B6-vit B12 2.5-25-1 mg tablet 1 ea PO DAILY RF: 0 buspirone 5 mg tablet 5 tablet PO DAILY RF: 0 nortriptyline 50 mg capsule 50 mg PO QHS RF: 0 clonazepam 1 mg tablet 1 mg PO DAILY PRN (Reason: Anxiety) RF: 0 levothyroxine 125 mcg tablet 125 mcg PO DAILY Qty: 90 RF: 3 calcitriol 0.5 mcg capsule 0.5 mcg PO DAILY Qty: 90 RF: 3 lisinopril 10 mg tablet 10 mg PO DAILY RF: 0 pregabalin 50 mg capsule 50 mg PO BID RF: 0 famotidine [Pepcid] 20 mg tablet 20 mg PO BID RF: 0 dexamethasone sodium phosphate 0.1 % drops 1 drp ophthalmic (eye) BID RF: 0 Discontinued hydrocodone-acetaminophen 10-325 mg tablet 1 tab PO 4X/DAY RF: 0 Referrals / Follow Up: Erica Richardson DO [Primary Care Provider] - Within 2 Weeks Stanley Broderick DO [STAFF PHYSICIAN] - 03/13/21 Disposition Disposition (needs filled in before D/C Order can be placed): Home Health Service
--- NOTE | 2021-03-09 16:17 | DS.PCM_ITS ---
Providers Date of Admission: 03/08/21 Primary Care Physician: Dr. Erica Richardson, Consultations 03/08/21 20:03 Consult: Orthopedics Routine Consulting Provider: Stanley Broderick Reason for Consult: left humerus fracture EMERGENT Consult: No MD Notified: Yes Date Notified: 03/08/21 Time Notified: 18:27 Method of Notification: Verbal Reason For Visit: FALL ON BACK OF HEAD Diagnosis Discharge Diagnosis (1) Closed left humeral fracture: Status: Acute Code(s): S42.302A - Unspecified fracture of shaft of humerus, left arm, initial encounter for closed fracture Medications at Discharge Home Medications buspirone 5 mg tablet 5 tablet PO DAILY 08/01/20 calcitriol 0.5 mcg capsule 0.5 mcg PO DAILY #90 cap 08/01/20 clonazepam 1 mg tablet 1 mg PO DAILY PRN tablet 08/01/20 folic acid-vit B6-vit B12 2.5 mg-25 mg-1 mg tablet 1 ea PO DAILY 08/01/20 indapamide 1.25 mg tablet 1.25 mg PO DAILY 08/01/20 letrozole 2.5 mg tablet 2.5 mg PO DAILY 08/01/20 levothyroxine 125 mcg tablet 125 mcg PO DAILY #90 tablet 08/01/20 nortriptyline 50 mg capsule 50 mg PO QHS cap 08/01/20 potassium chloride 20 mEq tablet,extended release(part/cryst) 20 meq PO BID 08/01/20 valacyclovir 1 gram tablet 1,000 mg PO DAILY 08/01/20 famotidine [Pepcid] 20 mg PO BID 03/08/21 lisinopril 10 mg PO DAILY 03/08/21 pregabalin 50 mg PO BID 03/08/21 cyclobenzaprine 5 mg PO TID PRN PRN #10 tab 03/09/21 dexamethasone sodium phosphate 1 drp OPHTHALMIC (EYE) BID 03/09/21 oxycodone 5 mg PO Q6H PRN 3 Days #12 tab 03/09/21 Hospital Course Operations None Procedures None Summary of Care Provided Minutes Spent on Discharge: 32 Hospital Course: 75-year-old female had a mechanical fall fell and sustained a left humerus fracture. Was reduced the emergency room but still has residual angulation of 20 degrees and mildly rotated. Plan from orthopedic standpoint is for patient to continue with splinting and then transition to a humeral fracture brace. Patient will follow up with orthopedics next week to transition over to a Alonzo fracture brace. Patient was seen by therapy and felt that she was stable for home with a cane but he does have home care. Patient was concerned about going home today as she would not be able to get close. I as well as nursing will instruct regards to patient how to utilize the phone in her room so that she can contact someone to take her home. Patient will receive prescription for oxycodone for 3 days +10 tablets of cyclobenzaprine to help with muscle spasms. Patient is otherwise stable and will be discharged home in stable condition Weight / BMI Weight Weight: 67.3 kg Body Mass Index (BMI) 23.8 ABG / Lab / Microbiology Data Result Diagrams: 03/09/21 06:15 03/09/21 06:15 Laboratory: Laboratory Results - last 24 hr 03/08/21 21:30: Magnesium 2.1 03/08/21 21:30: Phosphorus 3.1 03/09/21 06:15: WBC 8.4, RBC 3.32 L, Hgb 10.5 L, Hct 31.8 L, MCV 95.8, MCH 31.6, MCHC 33.0, RDW Std Deviation 49.7 H, RDW Coeff of Felix 14.0, Plt Count 257, MPV 10.6, Immature Gran % (Auto) 0.200, Neut % (Auto) 60.8, Lymph % (Auto) 24.0, [place] % (Auto) 11.3 H, Eos % (Auto) 3.2, Baso % (Auto) 0.5, Absolute Neuts (auto) 5.1, Absolute Lymphs (auto) 2.01, Nucleated RBC % 0 03/09/21 06:15: Sodium 138, Potassium 3.5, Chloride 106, Carbon Dioxide 27.0, Anion Gap 5, BUN 14, Creatinine 0.61, Estim Creat Clear Calc 46.20, Est GFR (MDRD) Af Amer 124, Est GFR (MDRD) Non-Af 102, BUN/Creatinine Ratio 23.0 H, Glucose 112 H, Calcium 7.7 L Radiography Diagnostic Testing: Radiology Impression Brain CT 03/08/21 15:20 IMPRESSION: There are no acute intracranial findings. Electronically Signed: Niko Quevedo MD at 16:31 EST , Service support , Upper Extremity CT 03/08/21 15:30 IMPRESSION: Comminuted mid left humeral shaft fracture. Electronically Signed: Niko Quevedo MD at 16:34 EST , Service support , Humerus X-Ray 03/08/21 16:25 IMPRESSION: Comminuted mid left humeral fracture. Electronically Signed: Niko Quevedo MD at 16:42 EST , Service support , D/C Instructions Discharge Diet: No restrictions Weight Bearing Status: No weight bearing Keep extremity elevated above heart level: Left Arm Meaningful Use Info Meaningful Use Diagnoses (Choose all that apply): None applicable Discharge Plan Admission Admit Date/Time: 03/08/21 18:18 Primary Reason for Your Visit: debility, humerus fracture Attending Provider: Froy Velázquez Primary Care Provider: Erica Richardson Consulting Providers: Stanley Broderick Discharge Orders/Prescriptions Prescriptions: New oxycodone 5 mg Tablet 5 mg PO Q6H PRN (Reason: pain) 3 Days Qty: 12 RF: 0 cyclobenzaprine 5 mg Tablet 5 mg PO TID PRN PRN (Reason: Muscle Spasm) Qty: 10 RF: 0 Continued valacyclovir 1 gram tablet 1,000 mg PO DAILY RF: 0 letrozole 2.5 mg tablet 2.5 mg PO DAILY RF: 0 indapamide 1.25 mg tablet 1.25 mg PO DAILY RF: 0 potassium chloride 20 mEq tablet,ER particles/crystals 20 meq PO BID RF: 0 folic acid-vit B6-vit B12 2.5-25-1 mg tablet 1 ea PO DAILY RF: 0 buspirone 5 mg tablet 5 tablet PO DAILY RF: 0 nortriptyline 50 mg capsule 50 mg PO QHS RF: 0 clonazepam 1 mg tablet 1 mg PO DAILY PRN (Reason: Anxiety) RF: 0 levothyroxine 125 mcg tablet 125 mcg PO DAILY Qty: 90 RF: 3 calcitriol 0.5 mcg capsule 0.5 mcg PO DAILY Qty: 90 RF: 3 lisinopril 10 mg tablet 10 mg PO DAILY RF: 0 pregabalin 50 mg capsule 50 mg PO BID RF: 0 famotidine [Pepcid] 20 mg tablet 20 mg PO BID RF: 0 dexamethasone sodium phosphate 0.1 % drops 1 drp ophthalmic (eye) BID RF: 0 Discontinued hydrocodone-acetaminophen 10-325 mg tablet 1 tab PO 4X/DAY RF: 0 Referrals / Follow Up: Erica Richardson DO [Primary Care Provider] - Within 2 Weeks Stanley Broderick DO [STAFF PHYSICIAN] - 03/13/21 Disposition Disposition (needs filled in before D/C Order can be placed): Home Health Service Charges/Coding Visit Charges Inpatient E&M: 57113 Disch Hosp
[2021-03-09] MEDS: 0.9% Saline Lock 10 ML Syringe IV (17:09)
== END 2021-03-09 19:05 | disposition home health service (06) ==
LOC: ED 18:26 → MS3 18:32
PROVIDERS: Admitting Provider Internal Medicine; Emergency Provider Emergency Medicine; PCP Family Medicine
DX: S42.352A Displaced comminuted fracture of shaft of humerus, left arm, initial encounter for closed fracture (principal); Z23 Encounter for immunization; F41.9 Anxiety disorder, unspecified; F32.A Depression, unspecified; M19.90 Unspecified osteoarthritis, unspecified site; I10 Essential (primary) hypertension; E78.1 Pure hyperglyceridemia; E89.0 Postprocedural hypothyroidism; E89.2 Postprocedural hypoparathyroidism; W10.9XXA Fall (on) (from) unspecified stairs and steps, initial encounter; Y93.89 Activity, other specified; Y92.009 Unspecified place in unspecified non-institutional (private) residence as the place of occurrence of the external cause; Y99.9 Unspecified external cause status; Z79.899 Other long term (current) drug therapy; Z79.890 Hormone replacement therapy; Z87.891 Personal history of nicotine dependence; M06.9 Rheumatoid arthritis, unspecified; Z91.81 History of falling; G62.9 Polyneuropathy, unspecified
CPT/HCPCS: 24505; 36591; 70450; 72125; 73060; 73200; 80048; 83735; 84100; 84439; 84443; 85025; 96361; 96372; 96374; 96375; 96376; 97166; 99152; 99218; 99251; 99285; J7030; J7040; 90686; A4216; G0378; G0463; J2405

== ENCOUNTER 2021-03-31 15:44 | Emergency (ER) | payer MEDICARE, BC, SELFPAY ==
[2021-03-31 15:49] VITALS: BP 139/79; PULSE 89; RESP 18; TEMP 36.7; O2SAT 98; BMI 24.7
--- NOTE | 2021-03-31 16:19 | CT_ITS ---
STUDY: CT BRAIN WITHOUT CONTRAST REASON FOR EXAM: Female, 75 years old. Headache after a fall RADIATION DOSAGE (If Supplied By Facility): CTDIvol = ( 44.99 ) mGy, DLP = ( 796.11 ) mGycm TECHNIQUE: Transaxial CT imaging of the brain was performed without administration of intravenous contrast material. Individualized dose optimization techniques were used for this CT. COMPARISON: 03/08/2021 FINDINGS: Normal soft tissue structures. Normal calvarium. Normal size ventricles and extra-axial spaces for the patient''s age. There are areas of decreased attenuation within the white matter tracts of the supratentorial brain, consistent with microvascular disease changes. Normal basal ganglia and thalami. Normal brainstem. Normal cerebellum. There is no intracranial hemorrhage. There are no findings of an acute ischemic infarction. Normal visualized paranasal sinuses. CT/Brain/Head without Contrast IMPRESSION: Chronic involutional changes of the brain. No acute hemorrhage Electronically Signed: Brody Licona MD at 17:27 EST , Service support ,
--- NOTE | 2021-03-31 16:21 | ED.VIS.FALL ---
HPI HPI - Fall History of Present Illness Chief Complaint: Fall Detail of Chief Complaint: Falls x4 today Informant: patient Narrative Narrative: Patient presents to the emergency department with complaint of falls x4 today. Patient states that she fell about 3 weeks ago and fractured her left humerus and has been having it x-rayed weekly by her orthopedic surgeon. Patient states that she think she may reinjure the arm and that is the main reason why she is here. Patient states that she has had episodes where she has fallen multiple times like this in the past. She denies feeling lightheaded or dizzy prior to the fall. Patient thinks that maybe she is loses her balance. Patient states that she has not been ill recently. She denies urinary symptoms. She denies chest pain. She did hit her head but did not have a loss of consciousness with her fall. [facility] Medical History (Updated 03/31/21 @ 17:[address] Nacho Pascal, DO) Alcohol abuse Alcohol intoxication Anemia Anxiety Arthritis Back problem Benzodiazepine dependence Bladder infection Bone fracture Breast cancer Breast cancer Breast lump BROKEN ARM REPAIR Calcium deficiency Cancer Debility Depression Depression Fall Frequent falls GERD (gastroesophageal reflux disease) Glaucoma High cholesterol High triglycerides History of recent fall HTN (hypertension) Hypertension Hypokalemia Hypomagnesemia Hyponatremia Hypothyroidism Hypothyroidism Hypothyroidism (acquired) Melanoma Multiple rib fractures Opioid dependence Pancreatitis Parathyroid abnormality Pneumonia Postsurgical hypoparathyroidism Postsurgical hypothyroidism Rheumatoid arthritis Right arm fracture Scalp laceration Skin cancer Subdural hematoma Tobacco abuse UTI (urinary tract infection) Vitamin D deficiency Home Medications buspirone 5 mg tablet 5 tablet PO DAILY 08/01/20 [History Last Taken 03/07/21] calcitriol 0.5 mcg capsule 0.5 mcg PO DAILY #90 cap 08/01/20 [Rx Last Taken 03/08/21] clonazepam 1 mg tablet 1 mg PO DAILY PRN tablet 08/01/20 [History Last Taken 03/08/21] folic acid-vit B6-vit B12 2.5 mg-25 mg-1 mg tablet 1 ea PO DAILY 08/01/20 [History Last Taken 03/08/21] indapamide 1.25 mg tablet 1.25 mg PO DAILY 08/01/20 [History Last Taken 03/08/21] letrozole 2.5 mg tablet 2.5 mg PO DAILY 08/01/20 [History Last Taken 03/08/21] levothyroxine 125 mcg tablet 125 mcg PO DAILY #90 tablet 08/01/20 [Rx Last Taken 03/07/21] nortriptyline 50 mg capsule 50 mg PO QHS cap 08/01/20 [History Last Taken 03/07/21] potassium chloride 20 mEq tablet,extended release(part/cryst) 20 meq PO BID 08/01/20 [History Last Taken 03/08/21] valacyclovir 1 gram tablet 1,000 mg PO DAILY 08/01/20 [History Last Taken 03/08/21] famotidine [Pepcid] 20 mg PO BID 03/08/21 [History Last Taken 03/07/21] lisinopril 10 mg PO DAILY 03/08/21 [History Last Taken 03/08/21] pregabalin 50 mg PO BID 03/08/21 [History Last Taken 03/08/21] cyclobenzaprine 5 mg PO TID PRN PRN #10 tab 03/09/21 [Rx Last Taken Unknown] dexamethasone sodium phosphate 1 drp OPHTHALMIC (EYE) BID 03/09/21 [History Last Taken 03/08/21 06:00] oxycodone 5 mg PO Q6H PRN 3 Days #12 tab 03/09/21 [Rx Last Taken Unknown] Allergy/AdvReac Type Severity Reaction Status Date / Time bacitracin Allergy Unknown Unknown Verified 03/31/21 15:51 [From Neosporin ([id number])] neomycin Allergy Unknown Unknown Verified 03/31/21 15:51 [From Neosporin ([id number])] polymyxin B Allergy Unknown Unknown Verified 03/31/21 15:51 [From Neosporin ([id number])] Family History (Updated 03/08/21 @ 18:49 by Roberto FARRAR) Unknown Thyroid disorder Cancer High cholesterol Arthritis Mother Cancer Diabetes Father , Father at the age of 50 from successful suicide attempt. Suicidal intent Other Alcohol abuse Anxiety Depression Heart disease Hypertension Mental disorder Parkinson disease Psychiatric care Surgical History H/O mastectomy H/O thyroidectomy Status post glaucoma surgery Social History household members: none Smoking Status: Former smoker second hand exposure: Yes alcohol intake: never substance use type: does not use ROS ROS ED ROS Narrative Falls Constitutional Constitutional ED: Reports systems reviewed and no addt'l complaints, except as documented; Denies body ache(s), change in weight or chills Eyes Eyes: Denies acute decrease in peripheral vision, change in vision, double vision or loss of vision ENT ENT ED: Reports none; Denies ear pain, lip swelling, loss taste/smell, neck pain, otalgia or sore throat Cardiovascular Cardiovascular: Reports none; Denies abdominal pain, chest pain with activity, leg edema, lightheadedness, palpitations, rapid heart rate or syncope Respiratory/Chest Respiratory/Chest: Reports none; Denies change in mental status, dry cough, dyspnea, hemoptysis, shortness of breath at rest or shortness of breath with exertion Gastrointestinal Gastrointestinal: Reports none; Denies abdominal pain, change in stool character, diarrhea, hematemesis, hematochezia, melena, rectal bleeding or vomiting Genitourinary Genitourinary ED: Reports none; Denies abdominal discomfort, anuria, dysuria, genital pain or polyuria Musculoskeletal Musculoskeletal: Reports none and other Details: Left upper arm pain ; Denies arthralgias, back pain, difficulty walking, extremity pain, muscle weakness or myalgias Integumentary Reports none; Denies abscess or rash Neurologic Neurologic: Reports none; Denies abnormal gait, confusion, focal weakness, frequent falls, headache(s), loss of vision, numbness, paresthesias, radicular pain, vertigo or weakness Psychiatric Psychiatric: Reports systems reviewed and no addt'l complaints, except as documented and none; Denies behavioral changes, confusion, difficulty concentrating, hallucinations, suicidal ideation, tactile hallucinations or visual hallucinations Endocrine Endocrinology: Denies none, cold intolerance, excessive sweating, fatigue or heat intolerance Hematologic/Lymphatic Hematologic/Lymphatic: Reports none; Denies anemia, easy bleeding or easy bruising Allergic/Immunologic Allergic/Immunologic ED: Denies as per HPI, none, lip swelling, mouth swelling, throat swelling, tongue swelling or hives EXAM Physical Exam Const Vital Signs: 03/31/21 15:49 03/31/21 15:51 03/31/21 16:55 Temperature 98.1 F Temperature Source Oral Pulse Rate 89 Pulse Rate [Lying] 91 Pulse Rate [Sitting] 97 Pulse Rate [Standing] 91 Respiratory Rate 18 Respiratory Effort Normal Non-Labored Blood Pressure 139/79 H Blood Pressure [Lying] 130/83 H Blood Pressure [Sitting] 128/84 H Blood Pressure [Standing] 126/80 H Blood Pressure Mean 99 Blood Pressure Mean [Lying] 98 Blood Pressure Mean [Sitting] 98 Blood Pressure Mean [Standing] 95 Pulse Ox 98 Oxygen Delivery Method Room Air Positive well nourished and well developed General Appearance ED: well developed and NAD HEENT Reports TM's clear and moist mucous membranes HEENT Narrative: No external evidence of trauma to her head. No C-spine tenderness on palpation. normocephalic and atraumatic; Negative for trauma or tenderness Tympanic Membrane ED: Yes TM's clear Eyes PERRL and EOMs intact bilaterally General Eye ED: Negative for pale conjunctiva or scleral icterus Neck no lymphadenopathy, supple and no JVD General: Negative for tenderness Chest Wall inspection of chest normal and palpation of chest normal Chest: Negative for tenderness Resp normal respiratory effort and clear to auscultation bilaterally Effort and Inspection: Negative for respiratory distress or pain with movement Auscultation: Negative for rhonchi, wheezes or diminished lung sounds Cardio regular rate, regular rhythm, S1 normal heart sound, S2 normal heart sound and no murmurs Peripheral Pulses: pulses 2+ throughout GI normal to inspection, nondistended, normoactive bowel sounds, soft to palpation, non-tender, non-distended and no masses Back/Spine no CVA tenderness and no thoracic nor lumbar tenderness Extremity Extremity Narrative: Patient has a brace over the left upper arm. Patient has no pain at the shoulder or elbow. She is neurovascular intact distally. General Extremety ED: Negative for edema General Extremity: Negative for edema Neuro oriented x3, CN's II-XII intact bilaterally, no sensory deficits noted and gait normal Sensorium / Orientation: awake, alert, oriented to person, oriented to place and oriented to time Motor Exam: strength 5/5 throughout and strength abnormal Psych mental status grossly normal Skin no rashes or lesions noted and no wounds MDM MDM MDM Narrative Medical decision making narrative: IV line established on arrival. Patient requested a dose of her oxycodone that she has not had for a while at home and for pain in her left arm therefore she was given 1 tablet of oxycodone. Patient's x-ray of her left humerus does show new healing and no evidence of displacement or new significant injury. Her lab work-up was unremarkable and her urinalysis was unremarkable. Patient feels comfortable going home. She tells me that she is able to care for herself. Lab Data Attestation: I reviewed the patient's lab results. Labs: Laboratory Results - last 24 hr 03/31/21 03/31/21 03/31/21 16:44 16:44 16:44 WBC 14.0 H RBC 3.58 L Hgb 11.3 L Hct 34.5 L MCV 96.4 MCH 31.6 MCHC 32.8 RDW Std Deviation 46.9 H RDW Coeff of Felix 13.1 Plt Count 310 MPV 11.0 Immature Gran % (Auto) 0.900 Neut % (Auto) 78.7 H Lymph % (Auto) 10.5 L [place] % (Auto) 7.4 Eos % (Auto) 2.1 Baso % (Auto) 0.4 Absolute Neuts (auto) 11.0 H Absolute Lymphs (auto) 1.46 Nucleated RBC % 0 Sodium 131 L Potassium 3.2 L Chloride 94 L Carbon Dioxide 27.0 Anion Gap 10 BUN 19 H Creatinine 0.69 Estim Creat Clear Calc 46.20 Est GFR (MDRD) Af Amer 106 Est GFR (MDRD) Non-Af 88 BUN/Creatinine Ratio 27.4 H Glucose 116 H Calcium 8.4 L Troponin I High Sens 5 Urine Color Urine Clarity Urine pH Ur Specific [place] Urine Protein Urine Glucose (UA) Urine Ketones Urine Occult Blood Urine Nitrite Urine Bilirubin Urine Urobilinogen Ur Leukocyte Esterase Urine RBC Urine WBC Ur Squamous Epith Cells Urine Bacteria Urine Mucus Ethyl Alcohol < 3.0 03/31/21 17:01 WBC RBC Hgb Hct MCV MCH MCHC RDW Std Deviation RDW Coeff of Felix Plt Count MPV Immature Gran % (Auto) Neut % (Auto) Lymph % (Auto) [place] % (Auto) Eos % (Auto) Baso % (Auto) Absolute Neuts (auto) Absolute Lymphs (auto) Nucleated RBC % Sodium Potassium Chloride Carbon Dioxide Anion Gap BUN Creatinine Estim Creat Clear Calc Est GFR (MDRD) Af Amer Est GFR (MDRD) Non-Af BUN/Creatinine Ratio Glucose Calcium Troponin I High Sens Urine Color Yellow Urine Clarity Clear Urine pH 6.0 Ur Specific [place] 1.010 Urine Protein Negative Urine Glucose (UA) Normal Urine Ketones Negative Urine Occult Blood 10 H Urine Nitrite Negative Urine Bilirubin Negative Urine Urobilinogen Normal Ur Leukocyte Esterase 500 H Urine RBC 0 SEEN Urine WBC 5-10 SEEN Ur Squamous Epith Cells 0 SEEN Urine Bacteria 2+ Urine Mucus 0 SEEN Ethyl Alcohol Radiography Diagnostic Testing: Clinical Impression(s) from Imaging Studies Brain CT 03/31/21 16:19 IMPRESSION: Chronic involutional changes of the brain. No acute hemorrhage Electronically Signed: Brody Licona MD at 17:27 EST , Service support , Humerus X-Ray 03/31/21 17:12 IMPRESSION: Acute, comminuted, multi fragmented angulated, displaced fracture in the midshaft of the humerus. There is subtle periosteal reaction around the periphery of it suggesting this is likely a pathologic fracture which may have worsened after the trauma Anatomic alignment of the shoulder and elbow joints. Electronically Signed: Brody Licona MD at 17:33 EST , Service support , 2 view x-rays of left humerus obtained interpreted by myself as recent fracture of the left mid humerus with new bone growth and calcification. Radiology in agreement. Discharge Plan Triage Chief Complaint: Fall ED Provider: Nacho Pascal Dx/Rx/DC Orders Clinical Impression: Closed left humeral fracture, Fall, CHI (closed head injury) Instructions: ED Fracture, Upper Extremity, ED Head Injury (Adult), ED Fall Prevention Prescriptions: No Action valacyclovir 1 gram tablet 1,000 mg PO DAILY RF: 0 letrozole 2.5 mg tablet 2.5 mg PO DAILY RF: 0 indapamide 1.25 mg tablet 1.25 mg PO DAILY RF: 0 potassium chloride 20 mEq tablet,ER particles/crystals 20 meq PO BID RF: 0 folic acid-vit B6-vit B12 2.5-25-1 mg tablet 1 ea PO DAILY RF: 0 buspirone 5 mg tablet 5 tablet PO DAILY RF: 0 nortriptyline 50 mg capsule 50 mg PO QHS RF: 0 clonazepam 1 mg tablet 1 mg PO DAILY PRN (Reason: Anxiety) RF: 0 levothyroxine 125 mcg tablet 125 mcg PO DAILY Qty: 90 RF: 3 calcitriol 0.5 mcg capsule 0.5 mcg PO DAILY Qty: 90 RF: 3 lisinopril 10 mg tablet 10 mg PO DAILY RF: 0 pregabalin 50 mg capsule 50 mg PO BID RF: 0 famotidine [Pepcid] 20 mg tablet 20 mg PO BID RF: 0 dexamethasone sodium phosphate 0.1 % drops 1 drp ophthalmic (eye) BID RF: 0 oxycodone 5 mg Tablet 5 mg PO Q6H PRN (Reason: pain) 3 Days Qty: 12 RF: 0 cyclobenzaprine 5 mg Tablet 5 mg PO TID PRN PRN (Reason: Muscle Spasm) Qty: 10 RF: 0 Primary Care Provider: Erica Richardson Referrals: Erica Richardson DO [Primary Care Provider] - 5-7 Days Disposition Disposition: Home, Self Care
[2021-03-31] MEDS: oxyCODONE 5 MG Tablet PO (16:43)
[2021-03-31 16:55] VITALS: BP 126/80; BP 128/84; BP 130/83; PULSE 91; PULSE 97
[2021-03-31 17:08] LABS: Mucous, Urine 0 SEEN /hpf (<or=2+); Red Blood Cells-Urine 0 SEEN /hpf (0-5); Squamous Epithelial Cells - UA 0 SEEN /hpf (5-10)
[2021-03-31 17:08] LABS: Absolute Lymphocyte Count 1.46 X10^3/uL (0.83-4.51); Basophil# 0.06 X10^3/uL; Basophil% 0.4 % (0-1); Eosinophil# 0.29 X10^3/uL; Eosinophils% 2.1 % (0-5); Hematocrit 34.5 % (37-47); Hemoglobin 11.3 g/dL (12.0-15.0); Lymphocyte # 1.46 X10^3/ul (0.83-4.51); Lymphocyte % 10.5 % (19-41); Mean Corp Hgb Conc 32.8 g/dL (32-36); Mean Corpuscular Hgb 31.6 pg (27.0-32.0); Mean Corpuscular Volume 96.4 fL (81-99); Monocyte# 1.04 X10^3/uL; Monocyte% 7.4 % (0-10); NRBC Flagged by Analyzer 0 % (0-5); Neutrophil # 10.99 X10^3/uL (2.7-7.7); Neutrophil % 78.7 % (47-70); Platelet Count 310 K/mm3 (150-450); RBC Distribution Width CV 13.1 % (11.6-14.6); RBC Distribution Width SD 46.9 fl (35.1-43.9); Red Blood Count 3.58 M/mm3 (4.2-5.4)
--- NOTE | 2021-03-31 17:12 | RAD_ITS ---
STUDY: X-RAY - LEFT HUMERUS REASON FOR EXAM: Female, 75 years old. Fall TECHNIQUE: 2 view(s) of the humerus. COMPARISON: None. FINDINGS: There is an acute, comminuted, multi fragmented displaced, and angulated fracture of the mid shaft of the humerus. There is lucency and some periosteal reaction suggesting this is likely a pathologic fracture. It may have been fractured previously but the recent fall may have worsened it. There is anatomic alignment of the glenohumeral, acromioclavicular, and elbow joints. . RAD/Humerus min 2 Views IMPRESSION: Acute, comminuted, multi fragmented angulated, displaced fracture in the midshaft of the humerus. There is subtle periosteal reaction around the periphery of it suggesting this is likely a pathologic fracture which may have worsened after the trauma Anatomic alignment of the shoulder and elbow joints. Electronically Signed: Brody Licona MD at 17:33 EST , Service support ,
[2021-03-31 17:21] LABS: Color, Urine Yellow (Yellow); Glucose, Dipstick Normal (Normal); Ketone-Dipstick Negative (Negative); Leukocyte Esterase-Dipstick 500 /ul (Negative); Nitrite-Dipstick Negative (Negative); Occult Blood-Urine 10 /ul (Negative); Protein-Dipstick Negative (Negative); Urine Bilirubin Dipstick Negative (Negative); Urine Clarity Clear (Clear); Urine Urobilinogen Normal (Normal)
[2021-03-31 17:24] LABS: Anion Gap 10 (5-15); BUN 19 mg/dL (7-18); BUN/Creat Ratio 27.4 RATIO (10-20); Calcium,Total 8.4 mg/dL (8.5-10.1); Chloride 94 mmol/L (98-107); Creatinine, Serum 0.69 mg/dL (0.55-1.02); EST Glomerular Filtration Rate 88 mL/min (>60); Est Glom Filt Rate - Afr Amer 106 mL/min (>60); Glucose 116 mg/dL (74-106); Potassium 3.2 mmol/L (3.5-5.1); Sodium Level 131 mmol/L (136-145); Troponin-I HS 5 pg/mL (3.0-54.0)
[2021-03-31 17:33] LABS: Bacteria 2+ /hpf (None Seen)
[2021-03-31 17:34] LABS: White Blood Cells 5-10 SEEN /hpf (0-5)
[2021-03-31 17:45] LABS: Alcohol, Blood (Medical)-Serum < 3.0 mg/dL
[2021-03-31 18:03] VITALS: BP 123/85; PULSE 93; RESP 16; O2SAT 99
[2021-03-31] MEDS: 0.9% Saline Lock 10 ML Syringe IV (18:04)
== END 2021-03-31 18:43 | disposition home or self-care (01) ==
PROVIDERS: Emergency Provider Emergency Medicine; PCP Family Medicine
DX: S42.302G Unspecified fracture of shaft of humerus, left arm, subsequent encounter for fracture with delayed healing (principal); W19.XXXD Unspecified fall, subsequent encounter; R29.6 Repeated falls; D64.9 Anemia, unspecified; E78.00 Pure hypercholesterolemia, unspecified; F11.20 Opioid dependence, uncomplicated; F13.20 Sedative, hypnotic or anxiolytic dependence, uncomplicated; F10.129 Alcohol abuse with intoxication, unspecified; F32.A Depression, unspecified; F41.9 Anxiety disorder, unspecified; H40.9 Unspecified glaucoma; I10 Essential (primary) hypertension; K21.9 Gastro-esophageal reflux disease without esophagitis; M06.9 Rheumatoid arthritis, unspecified; Z87.891 Personal history of nicotine dependence; Z85.3 Personal history of malignant neoplasm of breast
CPT/HCPCS: 36591; 70450; 73060; 80048; 81001; 82077; 84484; 85025; 99285; A4216

== ENCOUNTER 2021-05-21 14:38 | Emergency (ER) | payer MEDICARE, BC, SELFPAY ==
[2021-05-21 14:39] VITALS: BP 150/69; PULSE 87; RESP 18; TEMP 36.6; O2SAT 100; BMI 23.7
--- NOTE | 2021-05-21 15:10 | CT_ITS ---
HISTORY: fall/trauma, vertigo. TECHNIQUE: Multiple axial images were obtained of the brain without intravenous contrast. A radiation dose optimization technique was used for this scan. # of images incl. paperwork: [id number]. COMPARISON: 03/31/2021. FINDINGS: BRAIN PARENCHYMA:Multiple small foci and zones of low attenuation in the cerebral white matter most compatible with chronic small vessel ischemic gliosis. INTRACRANIAL HEMORRHAGE: No acute intracranial hemorrhage. CSF SPACES/MASS EFFECT: Diffuse atrophy with compensatory ventricular enlargement. No midline shift or other significant mass effect. ORBITS: Unremarkable. CALVARIUM: Intact. Right posterior scalp contusion. PARANASAL SINUSES AND MASTOID AIR CELLS: Clear. CT/Brain/Head without Contrast IMPRESSION: No acute intracranial process identified. Chronic small vessel ischemic gliosis and volume loss. Individualized dose optimization techniques were used for this CT. at 1602 Reported and signed by: Mana Duque MD Electronically Signed: Mana Duque MD at 16:01 EST ,
--- NOTE | 2021-05-21 15:11 | ED.VIS.FALL ---
HPI HPI - Fall History of Present Illness Chief Complaint: Fall Informant: patient and family Occured/Mechanism Occurred: Today (1 hr or less) Mechanism/Context: Yes same level fall Usually ambulates: Without assistance Narrative Narrative: Patient brought after a fall in right aid, she fell and hit her head posteriorly. No loss of consciousness, she denies headache, vomiting, vision changes, focal neurologic symptoms, but has had trouble hearing in her right ear since the fall, along with some tinnitus. She states that she leaned over to look at something on a shelf felt like she lost her balance and fell as a result, feeling like maybe she got her feet tangled together. She states that when she walked to the bathroom here in the ER prior to my evaluation of her, she felt dizzy but has a hard time describing it, saying that she just felt off. It was only while she was walking. She did not feel erika spinning nor has she ever had that. She denies a history of stroke. She states she takes a lot of medications but cannot remember what they are all for. The daughter verbalizes concern about the fact that she is on Klonopin, nortriptyline, hydrocodone, and takes Ambien to sleep at night on occasion. Patient states that she no longer takes Ambien because she took it the other night, she slept for half an hour and then woke up with a headache and she refuses to take it ever again. She denies having any lethargy or problems with these medications, and states she has been on them for a long time. Pain medication is for chronic arthritis everywhere in my body and she did not take it for a while but restarted recently when she broke her left arm. That is improving. She denies any injury other than her head today. She takes no anticoagulants or antiplatelets. Patient states she had a fall last week in which case she walked into her garage without turning the lights on in the dark, stepped on a rake and fell as a result without injury. [facility] Medical History Alcohol abuse Alcohol intoxication Anemia Anxiety Arthritis Back problem Benzodiazepine dependence Bladder infection Bone fracture Breast cancer Breast cancer Breast lump BROKEN ARM REPAIR Calcium deficiency Cancer Debility Depression Depression Fall Frequent falls GERD (gastroesophageal reflux disease) Glaucoma High cholesterol High triglycerides History of recent fall HTN (hypertension) Hypertension Hypokalemia Hypomagnesemia Hyponatremia Hypothyroidism Hypothyroidism Hypothyroidism (acquired) Melanoma Multiple rib fractures Opioid dependence Pancreatitis Parathyroid abnormality Pneumonia Postsurgical hypoparathyroidism Postsurgical hypothyroidism Rheumatoid arthritis Right arm fracture Scalp laceration Skin cancer Subdural hematoma Tobacco abuse UTI (urinary tract infection) Vitamin D deficiency Home Medications buspirone 5 mg tablet 5 tablet PO DAILY 08/01/20 [History Last Taken 03/07/21] calcitriol 0.5 mcg capsule 0.5 mcg PO DAILY #90 cap 08/01/20 [Rx Last Taken 03/08/21] clonazepam 1 mg tablet 1 mg PO DAILY PRN tablet 08/01/20 [History Last Taken 03/08/21] folic acid-vit B6-vit B12 2.5 mg-25 mg-1 mg tablet 1 ea PO DAILY 08/01/20 [History Last Taken 03/08/21] indapamide 1.25 mg tablet 1.25 mg PO DAILY 08/01/20 [History Last Taken 03/08/21] letrozole 2.5 mg tablet 2.5 mg PO DAILY 08/01/20 [History Last Taken 03/08/21] levothyroxine 125 mcg tablet 125 mcg PO DAILY #90 tablet 08/01/20 [Rx Last Taken 03/07/21] nortriptyline 50 mg capsule 50 mg PO QHS cap 08/01/20 [History Last Taken 03/07/21] potassium chloride 20 mEq tablet,extended release(part/cryst) 20 meq PO BID 08/01/20 [History Last Taken 03/08/21] valacyclovir 1 gram tablet 1,000 mg PO DAILY 08/01/20 [History Last Taken 03/08/21] famotidine [Pepcid] 20 mg PO BID 03/08/21 [History Last Taken 03/07/21] lisinopril 10 mg PO DAILY 03/08/21 [History Last Taken 03/08/21] pregabalin 50 mg PO BID 03/08/21 [History Last Taken 03/08/21] cyclobenzaprine 5 mg PO TID PRN PRN #10 tab 03/09/21 [Rx Last Taken Unknown] dexamethasone sodium phosphate 1 drp OPHTHALMIC (EYE) BID 03/09/21 [History Last Taken 03/08/21 06:00] oxycodone 5 mg PO Q6H PRN 3 Days #12 tab 03/09/21 [Rx Last Taken Unknown] meclizine 25 mg PO Q8H PRN PRN #20 tab 05/21/21 [Rx Last Taken Unknown] Allergy/AdvReac Type Severity Reaction Status Date / Time bacitracin Allergy Unknown Unknown Verified 05/21/21 14:41 [From Neosporin ([id number])] neomycin Allergy Unknown Unknown Verified 05/21/21 14:41 [From Neosporin ([id number])] polymyxin B Allergy Unknown Unknown Verified 05/21/21 14:41 [From Neosporin ([id number])] Family History (Updated 03/08/21 @ 18:49 by Roberto FARRAR) Unknown Thyroid disorder Cancer High cholesterol Arthritis Mother Cancer Diabetes Father , Father at the age of 50 from successful suicide attempt. Suicidal intent Other Alcohol abuse Anxiety Depression Heart disease Hypertension Mental disorder Parkinson disease Psychiatric care Surgical History H/O mastectomy H/O thyroidectomy Status post glaucoma surgery Social History household members: none Smoking Status: Former smoker second hand exposure: Yes alcohol intake: never substance use type: does not use ROS ROS ED Constitutional Constitutional ED: Denies chills or fever(s) Eyes Eyes: Denies change in vision or diplopia ENT ENT ED: Denies rhinorrhea or sore throat Cardiovascular Cardiovascular: Denies chest pain or palpitations Respiratory/Chest Respiratory/Chest: Denies cough or dyspnea Gastrointestinal Gastrointestinal: Denies abdominal pain, diarrhea, nausea or vomiting Genitourinary Genitourinary ED: Denies dysuria or hematuria Musculoskeletal Musculoskeletal: Denies back pain or neck pain Integumentary Reports other Details: hematoma scalp, see HPI ; Denies abscess or rash Neurologic Neurologic: Reports other Details: dizziness, see HPI ; Denies headache(s), paresthesias or weakness Psychiatric Psychiatric: Denies anxiety or suicidal thoughts EXAM Physical Exam Const Vital Signs: 05/21/21 14:39 05/21/21 14:48 Temperature 98 F Temperature Source Oral Pulse Rate 87 Respiratory Rate 18 Respiratory Effort Normal Respiratory Depth Normal Respiratory Pattern Normal Blood Pressure 150/69 H Blood Pressure Mean 96 Pulse Ox 100 Oxygen Delivery Method Room Air Room Air Positive well nourished and well developed General Appearance ED: well developed and NAD HEENT Reports moist mucous membranes HEENT Narrative: Mildly tender traumatic hematoma occipital scalp, skin intact, it is erythematous but intact. There is no crepitance or depression. normocephalic Eyes PERRL and EOMs intact bilaterally Neck full ROM and supple Resp normal respiratory effort and clear to auscultation bilaterally Cardio regular rate, regular rhythm and no murmurs GI non-tender and non-distended Auscultation: normoactive bowel sounds Palpation: soft Back/Spine no CVA tenderness General Back: other FROM Extremity normal to inspection General Extremety ED: Negative for edema, pulses abnormal or tenderness General Extremity: Negative for edema or pulses abnormal Neuro oriented x3, CN's II-XII intact bilaterally, no sensory deficits noted and deep tendon reflexes 2+ bilaterally Neuro Narrative: Negative Germain-Hallpike bilaterally. Normal [id number]-rt-idmu bilaterally. Normal pazm-iu-voqn bilaterally. Sensorium / Orientation: awake and alert Motor Exam: strength 5/5 throughout and clonus absent Skin no rashes or lesions noted and no wounds Skin Narrative: Hematoma occipital, otherwise atraumatic. MDM MDM MDM Narrative Medical decision making narrative: Head CT shows no acute abnormality or infarct. I obtained some basic blood work, it is unremarkable and I also obtained an alcohol level because this patient has been here for alcohol abuse that she did not admit to in the past. It is negative today. I gave her meclizine, as well as a prescription for some to use as needed, I suspect that some of her disequilibrium is peripheral vertigo in etiology. If she continues to have symptoms she should follow-up we discussed reasons to return. Lab Data Attestation: I reviewed the patient's lab results. Labs: Laboratory Results - last 24 hr 05/21/21 05/21/21 05/21/21 16:04 16:04 16:04 WBC 8.8 RBC 3.66 L Hgb 11.5 L Hct 34.4 L MCV 94.0 MCH 31.4 MCHC 33.4 RDW Std Deviation 44.3 H RDW Coeff of Felix 12.7 Plt Count 267 MPV 10.7 Immature Gran % (Auto) 0.200 Neut % (Auto) 73.4 H Lymph % (Auto) 14.7 L Fajardo % (Auto) 8.5 Eos % (Auto) 2.5 Baso % (Auto) 0.7 Absolute Neuts (auto) 6.4 Absolute Lymphs (auto) 1.29 Nucleated RBC % 0 Sodium 132 L Potassium 3.5 Chloride 98 Carbon Dioxide 27.0 Anion Gap 7 BUN 14 Creatinine 0.45 L Estim Creat Clear Calc 46.20 Est GFR (MDRD) Af Amer 174 Est GFR (MDRD) Non-Af 144 BUN/Creatinine Ratio 31.0 H Glucose 119 H Calcium 8.2 L Ethyl Alcohol < 3.0 Radiography Diagnostic Testing: Clinical Impression(s) from Imaging Studies Brain CT 05/21/21 15:10 IMPRESSION: No acute intracranial process identified. Chronic small vessel ischemic gliosis and volume loss. Individualized dose optimization techniques were used for this CT. at 1602 Reported and signed by: Mana Duque MD Electronically Signed: Mana Duque MD at 16:01 EST Reading Location ID and State: [address] [place] [address] Tel , Service support , Discharge Plan Triage Chief Complaint: Fall ED Provider: Chance Geronimo Dx/Rx/DC Orders Clinical Impression: Closed head injury without concussion, Accidental fall, Dysequilibrium Instructions: Dizziness Balance Probs Fainting, Vertigo Medicine Tx Prescriptions: New meclizine [meclizine] 25 MG tablet 25 mg PO Q8H PRN PRN (Reason: Dizziness) Qty: 20 RF: 0 No Action valacyclovir 1 gram tablet 1,000 mg PO DAILY RF: 0 letrozole 2.5 mg tablet 2.5 mg PO DAILY RF: 0 indapamide 1.25 mg tablet 1.25 mg PO DAILY RF: 0 potassium chloride 20 mEq tablet,ER particles/crystals 20 meq PO BID RF: 0 folic acid-vit B6-vit B12 2.5-25-1 mg tablet 1 ea PO DAILY RF: 0 buspirone 5 mg tablet 5 tablet PO DAILY RF: 0 nortriptyline 50 mg capsule 50 mg PO QHS RF: 0 clonazepam 1 mg tablet 1 mg PO DAILY PRN (Reason: Anxiety) RF: 0 levothyroxine 125 mcg tablet 125 mcg PO DAILY Qty: 90 RF: 3 calcitriol 0.5 mcg capsule 0.5 mcg PO DAILY Qty: 90 RF: 3 lisinopril 10 mg tablet 10 mg PO DAILY RF: 0 pregabalin 50 mg capsule 50 mg PO BID RF: 0 famotidine [Pepcid] 20 mg tablet 20 mg PO BID RF: 0 dexamethasone sodium phosphate 0.1 % drops 1 drp ophthalmic (eye) BID RF: 0 oxycodone 5 mg Tablet 5 mg PO Q6H PRN (Reason: pain) 3 Days Qty: 12 RF: 0 cyclobenzaprine 5 mg Tablet 5 mg PO TID PRN PRN (Reason: Muscle Spasm) Qty: 10 RF: 0 Primary Care Provider: Erica Richardson Referrals: Erica Richardson DO [Primary Care Provider] - 3-5 Days Disposition Disposition: Home, Self Care
--- NOTE | 2021-05-21 15:40 | ED.RN ---
unsuccessful attempt to access pts port.
[2021-05-21 16:11] LABS: Absolute Lymphocyte Count 1.29 X10^3/uL (0.83-4.51); Absolute Neutrophil Count 6.4 X10^3/uL (2.0-7.7); Basophil# 0.06 X10^3/uL; Basophil% 0.7 % (0-1); Eosinophil# 0.22 X10^3/uL; Eosinophils% 2.5 % (0-5); Hematocrit 34.4 % (37-47); Hemoglobin 11.5 g/dL (12.0-15.0); Lymphocyte # 1.29 X10^3/ul (0.83-4.51); Lymphocyte % 14.7 % (19-41); Mean Corp Hgb Conc 33.4 g/dL (32-36); Mean Corpuscular Hgb 31.4 pg (27.0-32.0); Mean Platelet Vol. 10.7 fl (6.2-12.0); Monocyte# 0.75 X10^3/uL; Monocyte% 8.5 % (0-10); NRBC Flagged by Analyzer 0 % (0-5); Neutrophil # 6.44 X10^3/uL (2.7-7.7); Neutrophil % 73.4 % (47-70); Platelet Count 267 K/mm3 (150-450); RBC Distribution Width CV 12.7 % (11.6-14.6); RBC Distribution Width SD 44.3 fl (35.1-43.9); Red Blood Count 3.66 M/mm3 (4.2-5.4); White Blood Count 8.8 K/mm3 (4.4-11.0)
[2021-05-21 16:24] LABS: Alcohol, Blood (Medical)-Serum < 3.0 mg/dL
[2021-05-21 16:26] LABS: Anion Gap 7 (5-15); BUN 14 mg/dL (7-18); Calcium,Total 8.2 mg/dL (8.5-10.1); Chloride 98 mmol/L (98-107); Creatinine, Serum 0.45 mg/dL (0.55-1.02); EST Glomerular Filtration Rate 144 mL/min (>60); Est Glom Filt Rate - Afr Amer 174 mL/min (>60); Glucose 119 mg/dL (74-106); Potassium 3.5 mmol/L (3.5-5.1); Sodium Level 132 mmol/L (136-145)
[2021-05-21] MEDS: Meclizine HCl 25 MG Tablet PO (16:54)
== END 2021-05-21 17:30 | disposition home or self-care (01) ==
PROVIDERS: Emergency Provider Emergency Medicine; PCP Family Medicine; Visit Provider Emergency Medicine
DX: S09.90XA Unspecified injury of head, initial encounter (principal); W18.30XA Fall on same level, unspecified, initial encounter; I10 Essential (primary) hypertension; Z87.891 Personal history of nicotine dependence; H93.19 Tinnitus, unspecified ear; E78.00 Pure hypercholesterolemia, unspecified; M19.90 Unspecified osteoarthritis, unspecified site; Z79.899 Other long term (current) drug therapy
CPT/HCPCS: 70450; 80048; 82077; 85025; 99284; A4216

== ENCOUNTER 2021-06-11 10:58 | Emergency (ER) | payer MEDICARE, BC, SELFPAY ==
[2021-06-11 11:01] VITALS: BP 135/81; PULSE 84; RESP 16; TEMP 36.8; O2SAT 98; BMI 23.5
--- NOTE | 2021-06-11 12:53 | CT_ITS ---
STUDY: CTA HEAD AND NECK WITH CONTRAST REASON FOR EXAM: Female, 75 years old. acute neurologic deficit, concern for stroke -- dizziness, left neck pain RADIATION DOSAGE (If Supplied By Facility): CTDIvol = ( 35.21 ) mGy, DLP = ( 2548.17 ) mGycm TECHNIQUE: CT angiography was performed with a multi-detector CT scanner. Data acquisition was obtained from the skull base through the vertex following intravenous administration of IV 100mL [id number]-[id number]. MIP images were reconstructed from the axial data set. Post-processing of the angiographic images was performed, with multiplanar reformation and 3D reconstruction. Individualized dose optimization techniques were used for this CT. COMPARISON: No relevant priors. FINDINGS: Normal bilateral petrous carotid arteries. Normal right cavernous carotid artery with a normal supraclinoid bifurcation. Normal left cavernous carotid artery with a normal supraclinoid bifurcation. Normal right A1 segments of the anterior cerebral artery. Normal left A1 segments of the anterior cerebral artery. Normal intact anterior communicating artery (ACOM). Normal bilateral A2 segments of the anterior cerebral arteries. Normal right M1 and M2 segments of the middle cerebral arteries, with a normal M1 bifurcation. Normal left M1 and M2 segments of the middle cerebral arteries, with a normal M1 bifurcation. Normal right posterior communicating artery (PCOM). Normal left posterior communicating artery (PCOM). Normal bilateral vertebral arteries. Normal basilar artery with a normal basilar bifurcation. The visualized bilateral superior cerebellar (SCA) arteries are normal. Normal bilateral P1, P2 and visualized P3 segments of the posterior cerebral arteries. There is no demonstrated aneurysm of the [place]. There is no demonstrated abnormality of the visualized brain. AORTIC ARCH: Normal visualized aortic arch. Normal origins of the brachiocephalic, left common carotid, and left subclavian arteries. RIGHT CAROTID ARTERIES: Normal right common carotid artery (CCA). Normal right common carotid bulb. Normal origin of the right internal carotid (ICA) artery without a hemodynamically significant stenosis. Normal visualized cervical portion of the right internal carotid artery. Normal origin of the right external carotid artery (ECA). LEFT CAROTID ARTERIES: Normal left common carotid artery (CCA). Normal left common carotid bulb. Normal origin of the left internal carotid (ICA) artery without a hemodynamically significant stenosis. Normal visualized cervical portion of the left internal carotid artery. Normal origin of the left external carotid artery (ECA). VERTEBRAL ARTERIES: Normal bilateral vertebral arteries. CT/CTA Head AND Neck W/ Contrast IMPRESSION: Normal CTA Head and neck with contrast. Electronically Signed: Colten Simms MD at 15:02 [facility] ,
--- NOTE | 2021-06-11 12:54 | EDS_ITS ---
HPI History of Present Illness Chief Complaint: Dizziness Informant: patient and family Narrative Narrative: Patient is a 75-year-old female with extensive medical history including intracranial hemorrhage, breast cancer and vertigo presenting with dizziness. Patient states last night her neck was bothering her and she put heat pack on her head. When she went to lay down she felt very dizzy. Whenever she moves, or tries to sit up her dizziness would worsen. Patient did take meclizine before coming in and is feeling better. She states she does feel that she is having some left-sided neck pain. The neck pain to started yesterday. Patient is especially concerned because she had a fall with a head injury about 3 weeks ago on 05/21/2021. At that time she was evaluated the ER was given an meclizine and had a negative head CT. Patient notes she had not had any dizziness or vertigo since then until last night. She denies any new numbness, tingling, weakness or speech changes. She denies any vision changes. She denies any ringing of her ears. [facility] Medical History (Updated 06/11/21 @ 15:[address] Katie Randle, ) Alcohol abuse Alcohol intoxication Anemia Anxiety Arthritis Back problem Benzodiazepine dependence Bladder infection Bone fracture Breast cancer Breast cancer Breast lump BROKEN ARM REPAIR Calcium deficiency Cancer Debility Depression Depression Fall Frequent falls GERD (gastroesophageal reflux disease) Glaucoma High cholesterol High triglycerides History of recent fall HTN (hypertension) Hypertension Hypokalemia Hypomagnesemia Hyponatremia Hypothyroidism Hypothyroidism Hypothyroidism (acquired) Melanoma Multiple rib fractures Opioid dependence Pancreatitis Parathyroid abnormality Pneumonia Postsurgical hypoparathyroidism Postsurgical hypothyroidism Rheumatoid arthritis Right arm fracture Scalp laceration Skin cancer Subdural hematoma Tobacco abuse UTI (urinary tract infection) Vitamin D deficiency Home Medications buspirone 5 mg tablet 5 tablet PO DAILY 08/01/20 [History Last Taken 03/07/21] calcitriol 0.5 mcg capsule 0.5 mcg PO DAILY #90 cap 08/01/20 [Rx Last Taken 03/08/21] clonazepam 1 mg tablet 1 mg PO DAILY PRN tablet 08/01/20 [History Last Taken 03/08/21] folic acid-vit B6-vit B12 2.5 mg-25 mg-1 mg tablet 1 ea PO DAILY 08/01/20 [History Last Taken 03/08/21] indapamide 1.25 mg tablet 1.25 mg PO DAILY 08/01/20 [History Last Taken 03/08/21] letrozole 2.5 mg tablet 2.5 mg PO DAILY 08/01/20 [History Last Taken 03/08/21] levothyroxine 125 mcg tablet 125 mcg PO DAILY #90 tablet 08/01/20 [Rx Last Taken 03/07/21] nortriptyline 50 mg capsule 50 mg PO QHS cap 08/01/20 [History Last Taken 03/07/21] potassium chloride 20 mEq tablet,extended release(part/cryst) 20 meq PO BID 08/01/20 [History Last Taken 03/08/21] valacyclovir 1 gram tablet 1,000 mg PO DAILY 08/01/20 [History Last Taken 03/08/21] famotidine [Pepcid] 20 mg PO BID 03/08/21 [History Last Taken 03/07/21] lisinopril 10 mg PO DAILY 03/08/21 [History Last Taken 03/08/21] pregabalin 50 mg PO BID 03/08/21 [History Last Taken 03/08/21] cyclobenzaprine 5 mg PO TID PRN PRN #10 tab 03/09/21 [Rx Last Taken Unknown] dexamethasone sodium phosphate 1 drp OPHTHALMIC (EYE) BID 03/09/21 [History Last Taken 03/08/21 06:00] oxycodone 5 mg PO Q6H PRN 3 Days #12 tab 03/09/21 [Rx Last Taken Unknown] meclizine 25 mg PO Q8H PRN PRN #20 tab 05/21/21 [Rx Last Taken Unknown] hydrocodone-acetaminophen 1 tab PO Q4H PRN PRN 06/11/21 [History Last Taken Unknown] Allergy/AdvReac Type Severity Reaction Status Date / Time bacitracin Allergy Unknown Unknown Verified 05/21/21 14:41 [From Neosporin ([id number])] neomycin Allergy Unknown Unknown Verified 05/21/21 14:41 [From Neosporin ([id number])] polymyxin B Allergy Unknown Unknown Verified 05/21/21 14:41 [From Neosporin ([id number])] Family History (Updated 03/08/21 @ 18:49 by Roberto FARRAR) Unknown Thyroid disorder Cancer High cholesterol Arthritis Mother Cancer Diabetes Father , Father at the age of 50 from successful suicide attempt. Suicidal intent Other Alcohol abuse Anxiety Depression Heart disease Hypertension Mental disorder Parkinson disease Psychiatric care Surgical History H/O mastectomy H/O thyroidectomy Status post glaucoma surgery Social History household members: none Smoking Status: Former smoker second hand exposure: Yes alcohol intake: never substance use type: does not use ROS ROS ED Constitutional Constitutional ED: Denies chills or fever(s) Eyes Eyes: Denies blurry vision or change in vision ENT ENT ED: Reports other Details: No ear ringing ; Denies ear pain Cardiovascular Cardiovascular: Denies chest pain Respiratory/Chest Respiratory/Chest: Denies cough or dyspnea Gastrointestinal Gastrointestinal: Denies abdominal pain, nausea or vomiting Genitourinary Genitourinary ED: Denies dysuria or hematuria Musculoskeletal Musculoskeletal: Reports neck pain; Denies arthralgias or myalgias Integumentary Denies rash Neurologic Neurologic: Reports other Details: Dizziness ; Denies headache(s), paresthesias or weakness Psychiatric Psychiatric: Reports anxiety; Denies depression EXAM Physical Exam Const Vital Signs: 06/11/21 11:01 06/11/21 15:56 Temperature 98.3 F Temperature Source Oral Pulse Rate 84 89 Respiratory Rate 16 16 Blood Pressure 135/81 H 149/83 H Blood Pressure Mean 99 105 Pulse Ox 98 97 Oxygen Delivery Method Room Air Room Air Positive well nourished and well developed General Appearance ED: well developed HEENT Reports TM's clear and moist mucous membranes Negative for trauma Tympanic Membrane ED: Yes TM's clear Eyes PERRL and EOMs intact bilaterally Eyes Narrative: No nystagmus on exam. Not able to reproduce symptoms with Germain- Hallpike maneuver Neck supple Neck Narrative: Normal range of motion, no step-off sign General: Negative for tenderness Chest Wall inspection of chest normal Resp normal respiratory effort and clear to auscultation bilaterally Cardio regular rate, regular rhythm and no murmurs GI normal to inspection, nondistended, normoactive bowel sounds Back/Spine no CVA tenderness Extremity normal to inspection General Extremety ED: Negative for edema or tenderness General Extremity: Negative for edema Neuro oriented x3, CN's II-XII intact bilaterally and no sensory deficits noted Neuro Narrative: No truncal ataxia Sensorium / Orientation: alert Coordination / Balance: [id number] test normal and [id number] test normal Psych mental status grossly normal Skin no rashes or lesions noted and no wounds MDM MDM MDM Narrative Medical decision making narrative: Patient evaluated for dizziness. She also associated neck pain. She is normal neurologic exam. She took a dose of Antivert before coming in and seemed to have improvement of her symptoms. Given her associated neck pain and recent fall differential does include a blunt cerebrovascular injury such as a carotid artery dissection that could be causing her symptoms. CTA of the head and neck obtained to rule this out. This is negative. Work-up is otherwise largely normal. She has a mild leukocytosis of 12.1 with no obvious or so infection. I do not think this is meningitis. Patient remains asymptomatic in the ER. Will take meclizine at home as needed for symptoms. Is given referral for ENT in case this is peripheral vertigo. Patient and daughter agreeable to splenic care. Patient discharged home in stable condition. Lab Data Attestation: I reviewed the patient's lab results. Labs: Laboratory Results - last 24 hr 06/11/21 06/11/21 06/11/21 13:15 13:15 Unknown WBC 12.1 H RBC 3.84 L Hgb 12.6 Hct 36.3 L MCV 94.5 MCH 32.8 H MCHC 34.7 RDW Std Deviation 45.8 H RDW Coeff of Felix 13.2 Plt Count 301 MPV 10.4 Immature Gran % (Auto) 0.300 Neut % (Auto) 78.8 H Lymph % (Auto) 13.4 L Cole % (Auto) 5.6 Eos % (Auto) 1.4 Baso % (Auto) 0.5 Absolute Neuts (auto) 9.6 H Absolute Lymphs (auto) 1.63 Nucleated RBC % 0 Sodium 135 L Potassium 3.8 Chloride 99 Carbon Dioxide 28.0 Anion Gap 8 BUN 14 Creatinine 0.52 L Estim Creat Clear Calc 42.62 Est GFR (MDRD) Af Amer 149 Est GFR (MDRD) Non-Af 123 BUN/Creatinine Ratio 27.0 H Glucose 110 H Calcium 9.4 Urine Color Yellow Urine Clarity Clear Urine pH 7.0 Ur Specific [place] 1.010 Urine Protein Negative Urine Glucose (UA) Normal Urine Ketones Negative Urine Occult Blood Negative Urine Nitrite Negative Urine Bilirubin Negative Urine Urobilinogen Normal Ur Leukocyte Esterase Negative Urine RBC 0 SEEN Urine WBC 0 SEEN Ur Squamous Epith Cells 0 SEEN Urine Bacteria 0 SEEN Urine Mucus 0 SEEN Radiography Diagnostic Testing: Clinical Impression(s) from Imaging Studies Head/Neck CTA 06/11/21 12:53 IMPRESSION: Normal CTA Head and neck with contrast. Electronically Signed: Colten Simms MD at 15:02 EST , Discharge Plan Triage Chief Complaint: Dizziness ED Provider: Katie Randle Dx/Rx/DC Orders Clinical Impression: Vertigo Instructions: ED BPV Vertigo Prescriptions: No Action valacyclovir 1 gram tablet 1,000 mg PO DAILY RF: 0 letrozole 2.5 mg tablet 2.5 mg PO DAILY RF: 0 indapamide 1.25 mg tablet 1.25 mg PO DAILY RF: 0 potassium chloride 20 mEq tablet,ER particles/crystals 20 meq PO BID RF: 0 folic acid-vit B6-vit B12 2.5-25-1 mg tablet 1 ea PO DAILY RF: 0 buspirone 5 mg tablet 5 tablet PO DAILY RF: 0 nortriptyline 50 mg capsule 50 mg PO QHS RF: 0 clonazepam 1 mg tablet 1 mg PO DAILY PRN (Reason: Anxiety) RF: 0 levothyroxine 125 mcg tablet 125 mcg PO DAILY Qty: 90 RF: 3 calcitriol 0.5 mcg capsule 0.5 mcg PO DAILY Qty: 90 RF: 3 lisinopril 10 mg tablet 10 mg PO DAILY RF: 0 pregabalin 50 mg capsule 50 mg PO BID RF: 0 famotidine [Pepcid] 20 mg tablet 20 mg PO BID RF: 0 dexamethasone sodium phosphate 0.1 % drops 1 drp ophthalmic (eye) BID RF: 0 oxycodone 5 mg Tablet 5 mg PO Q6H PRN (Reason: pain) 3 Days Qty: 12 RF: 0 cyclobenzaprine 5 mg Tablet 5 mg PO TID PRN PRN (Reason: Muscle Spasm) Qty: 10 RF: 0 meclizine [meclizine] 25 MG tablet 25 mg PO Q8H PRN PRN (Reason: Dizziness) Qty: 20 RF: 0 hydrocodone-acetaminophen 10-325 mg tablet 1 tab PO Q4H PRN PRN (Reason: Pain) RF: 0 Primary Care Provider: Erica Richardson Referrals: Froy Pedraza MD [STAFF PHYSICIAN] - As Needed Erica Richardson DO [Primary Care Provider] - Activity Restrictions/Additional Instructions: Take meclizine/Antivert 25 mg up to 4 times a day as needed for dizziness. Follow-up with your primary care doctor scheduled. If your symptoms worsen or persist, you have been given referral for ear nose and throat doctor. Disposition Disposition: Home, Self Care Discharge Date/Time: 06/11/21 16:09
[2021-06-11 13:02] LABS: Bacteria 0 SEEN /hpf (None Seen); Mucous, Urine 0 SEEN /hpf (<or=2+); Red Blood Cells-Urine 0 SEEN /hpf (0-5); Squamous Epithelial Cells - UA 0 SEEN /hpf (5-10); White Blood Cells 0 SEEN /hpf (0-5)
[2021-06-11 13:10] LABS: Color, Urine Yellow (Yellow); Glucose, Dipstick Normal (Normal); Ketone-Dipstick Negative (Negative); Leukocyte Esterase-Dipstick Negative /ul (Negative); Nitrite-Dipstick Negative (Negative); Occult Blood-Urine Negative /ul (Negative); Protein-Dipstick Negative (Negative); Urine Bilirubin Dipstick Negative (Negative); Urine Clarity Clear (Clear); Urine Urobilinogen Normal (Normal)
[2021-06-11 13:24] LABS: Absolute Lymphocyte Count 1.63 X10^3/uL (0.83-4.51); Absolute Neutrophil Count 9.6 X10^3/uL (2.0-7.7); Basophil# 0.06 X10^3/uL; Basophil% 0.5 % (0-1); Eosinophil# 0.17 X10^3/uL; Eosinophils% 1.4 % (0-5); Hematocrit 36.3 % (37-47); Hemoglobin 12.6 g/dL (12.0-15.0); Lymphocyte # 1.63 X10^3/ul (0.83-4.51); Lymphocyte % 13.4 % (19-41); Mean Corp Hgb Conc 34.7 g/dL (32-36); Mean Corpuscular Hgb 32.8 pg (27.0-32.0); Mean Corpuscular Volume 94.5 fL (81-99); Mean Platelet Vol. 10.4 fl (6.2-12.0); Monocyte# 0.68 X10^3/uL; Monocyte% 5.6 % (0-10); NRBC Flagged by Analyzer 0 % (0-5); Neutrophil # 9.56 X10^3/uL (2.7-7.7); Neutrophil % 78.8 % (47-70); Platelet Count 301 K/mm3 (150-450); RBC Distribution Width CV 13.2 % (11.6-14.6); RBC Distribution Width SD 45.8 fl (35.1-43.9); Red Blood Count 3.84 M/mm3 (4.2-5.4); White Blood Count 12.1 K/mm3 (4.4-11.0)
[2021-06-11 13:42] LABS: Anion Gap 8 (5-15); BUN 14 mg/dL (7-18); Calcium,Total 9.4 mg/dL (8.5-10.1); Chloride 99 mmol/L (98-107); Creatinine, Serum 0.52 mg/dL (0.55-1.02); EST Glomerular Filtration Rate 123 mL/min (>60); Est Glom Filt Rate - Afr Amer 149 mL/min (>60); Estimated Creatinine Clearance 42.62 ml/min; Glucose 110 mg/dL (74-106); Potassium 3.8 mmol/L (3.5-5.1); Sodium Level 135 mmol/L (136-145)
[2021-06-11 15:56] VITALS: BP 149/83; PULSE 89; RESP 16; O2SAT 97
== END 2021-06-11 16:09 | disposition home or self-care (01) ==
PROVIDERS: Emergency Provider Emergency Medicine; PCP Family Medicine; Visit Provider Emergency Medicine
DX: R42 Dizziness and giddiness (principal); C50.919 Malignant neoplasm of unspecified site of unspecified female breast; E78.00 Pure hypercholesterolemia, unspecified; I10 Essential (primary) hypertension; Z87.891 Personal history of nicotine dependence; E03.9 Hypothyroidism, unspecified
CPT/HCPCS: 36591; 70496; 70498; 80048; 81001; 85025; 99284; Q9967; A4216

== ENCOUNTER 2021-07-28 13:30 | Outpatient (CLI) | payer MEDICARE, BC, SELFPAY ==
[2021-07-28 14:50] LABS: T4 Free Direct 1.04 ng/dL (0.76-1.46); Thyroid Stim Hormone (TSH) 2.21 uIU/mL (0.358-3.74)
== END 2021-07-28 23:59 | disposition home or self-care (01) ==
LOC: MEDOUTP 13:32
PROVIDERS: Nurse Practitioner Family; PCP Family Medicine; Referring Provider Internal Medicine Endocrinology, Diabetes & Metabolism; Visit Provider Internal Medicine Endocrinology, Diabetes & Metabolism
DX: E03.9 Hypothyroidism, unspecified (principal)
CPT/HCPCS: 36591; 84439; 84443; A4216

== ENCOUNTER → 2021-08-10 | Outpatient (CLI) | payer MEDICARE, BC, SELFPAY ==
--- NOTE | 2021-08-10 10:55 | BD_ITS ---
STUDY: DUAL ENERGY X-RAY ABSORPTIOMETRY / DXA REASON FOR EXAM: Female, 75 years old. Osteoporosis TECHNIQUE: Bone Mineral Density (BMD) measurements of lumbar spine and bilateral hips were obtained. COMPARISON: None. FINDINGS: Lumbar Spine (L1-L4): g/cm2 (1.333) / T-score (2.5) / Z-score (5.0) Findings are suggestive of normal bone density with a low fracture risk. Left Femur Total: g/cm2 (0.962) / T-score (0.2) / Z-score (1.9) Left Femoral Neck: g/cm2 (0.759) / T-score (-0.8) / Z-score (1.3) Right Femur Total: g/cm2 (0.848) / T-score (-0.8) / Z-score (1.0) Right Femoral Neck: g/cm2 (0.756) / T-score (-0.8) / Z-score (1.2) BD/Dexa Bone Density Study IMPRESSION: The patient is considered normal as outlined below according to World Ricki Organization (WHO) criteria with a low fracture risk. Reference Information: The T-score is the number of standard deviations above or below the standard which is normal for young adults at their peak bone mineral density. The World Health Organization (WHO) interprets the T-scores as follows: Above -1 Normal bone density Between -1 and -2.5 Osteopenia Equal to / or below -2.5 Osteoporosis As a practical clinical guideline, osteopenia may be graded as follows: Mild -1 through -1.5 Moderate -1.6 through -2.0 Severe -2.1 through -2.4 The Z-score is the number of standard deviations above or below age-matched controls. A Z-score of less than -1.5 would be considered abnormal. References: 1. NIH Osteoporosis and Related Bone Diseases www osteo.org 2. International Society for Clinical Densitometry www iscd.org 3. National Osteoporosis Foundation www nof.org Electronically Signed: Franki Glez MD at 15:39 EDT ,
== END | disposition home or self-care (01) ==
LOC: OPBD 10:35
PROVIDERS: PCP Family Medicine; Visit Provider Internal Medicine Endocrinology, Diabetes & Metabolism
DX: M81.0 Age-related osteoporosis without current pathological fracture (principal)
CPT/HCPCS: 77080

== ENCOUNTER 2021-10-06 21:18 | Emergency (ER) | payer MEDICARE, BC, SELFPAY ==
[2021-10-06 21:19] VITALS: BP 121/65; PULSE 93; RESP 18; TEMP 36.1; O2SAT 94; BMI 20.9
--- NOTE | 2021-10-06 21:56 | EKG12_ITS ---
Test Reason : DYSRHYTHMIA Blood Pressure : / mmHG Vent. Rate : 089 BPM Atrial Rate : 089 BPM P-R Int : 158 ms QRS Dur : 084 ms QT Int : 400 ms P-R-T Axes : 059 054 061 degrees QTc Int : 486 ms Normal sinus rhythm Nonspecific ST abnormality Abnormal ECG Confirmed by ANIKA CRAMER, MARKUS ([id number]), brands editor ONESIMO GRACE ([id number]) on 10/09/2021 12:44:30 PM Referred By: TONE Confirmed By:MARKUS DONALDSON MD
--- NOTE | 2021-10-06 21:56 | CT_ITS ---
STUDY: CT BRAIN WITHOUT CONTRAST REASON FOR EXAM: Female, 75 years old. head trauma FELL DOWN STAIRS,? LOC,LT EYE BRUISING,BACK AND SHOULDER PAIN,ELEVATED WBC 31.5 HX:BREAST CANCER WITH MASECTOMY,MELANOMA,HTN,HYPOTHYROID WITH THYROIDECTOMY,RA,PANCREATITIS,GLAUCOMA WITH SURGERY RADIATION DOSAGE (If Supplied By Facility): CTDIvol = ( 44.99 ) mGy, DLP = ( 829.85 ) mGycm TECHNIQUE: Transaxial CT imaging of the brain was performed without administration of intravenous contrast material. Individualized dose optimization techniques were used for this CT. COMPARISON: CT head 06/11/2021. Images and report. FINDINGS: BRAIN: Small 0.7 x 0.5 cm hyperattenuating focus high right parietal region subcortical consistent with parenchymal hemorrhage/hemorrhagic contusion with mild surrounding edema. Decreased attenuation in the periventricular white matter bilaterally. No midline shift. VENTRICLES AND SULCI: Ventricles and sulci are prominent. EXTRA-AXIAL: No hemorrhage, fluid collection, or mass. CALVARIUM / SKULL BASE: Unremarkable. FACE/SINUSES: Mucosal thickening questionable fluid level in the left maxillary sinus. SOFT TISSUES: Unremarkable. CT/Brain/Head without Contrast IMPRESSION: Small right parietal parenchymal hemorrhagic contusion. Differential diagnosis also includes hyperdense metastatic focus given history of breast cancer and melanoma. Follow-up MRI may be helpful for further evaluation and to assess for additional lesions. Fluid level left maxillary sinus possible sinusitis. CT facial bones may be helpful to evaluate for fracture. Electronically Signed: Nahomy Duque MD at 23:48 EDT ,
--- NOTE | 2021-10-06 21:56 | RAD_ITS ---
STUDY: X-RAY - LEFT SHOULDER REASON FOR EXAM: Female, 75 years old. fall TECHNIQUE: 2 view(s) of the shoulder. COMPARISON: Left humerus x-rays 03/31/2021. FINDINGS: BONES: Acute fracture distal clavicle minimally displaced. Acute fracture of the distal scapula moderately displaced. Multiple acute left rib fractures including the third through eighth ribs posteriorly, and additional components laterally, moderately displaced. At least 2 small left pneumothorax. Old fracture in the mid humerus. JOINTS: No dislocation. SOFT TISSUES: Unremarkable. RAD/Shoulder min 2 Views IMPRESSION: Acute left scapular fracture, distal left clavicle fracture, and multiple left rib fractures. Small left pneumothorax incompletely assessed. Old left humerus fracture. Electronically Signed: Nahomy Duque MD at 0:00 EDT ,
--- NOTE | 2021-10-06 21:56 | CT_ITS ---
STUDY: CT FACIAL BONES WITHOUT CONTRAST REASON FOR EXAM: Female, 75 years old. facial trauma RADIATION DOSAGE (If Supplied By Facility): CTDIvol = ( 29.38 ) mGy, DLP = ( 576.84 ) mGycm TECHNIQUE: The patient was scanned in a multi detector CT scanner. Sagittal and coronal images were reconstructed. Individualized dose optimization techniques were used for this CT. COMPARISON: None. FINDINGS: ORBITS: No fracture demonstrated. Globes appear intact. No retrobulbar hematoma. NASAL BONES: Unremarkable. NASOETHMOID COMPLEX: Unremarkable. ZYGOMATIC ARCHES: Unremarkable. MAXILLAE: Suspect subtle nondisplaced fracture posterior lateral wall left maxillary sinus. PTERYGOID PLATES: Unremarkable. MANDIBLE: No fracture demonstrated. No dislocation at the temporomandibular joints. SINUSES: Fluid level left maxillary sinus. SOFT TISSUES: Soft tissue swelling in the left malar region extending laterally over the left zygomatic arch. OTHER: None. CT/Sinus/Facial Bone IMPRESSION: Suspect nondisplaced fracture of the posterolateral wall left maxillary sinus. Electronically Signed: Nahomy Duque MD at 23:55 EDT ,
--- NOTE | 2021-10-06 21:56 | CT_ITS ---
STUDY: CT CERVICAL SPINE WITHOUT CONTRAST REASON FOR EXAM: Female, 75 years old. trauma RADIATION DOSAGE (If Supplied By Facility): CTDIvol = ( 19.18 ) mGy, DLP = ( 367.58 ) mGycm TECHNIQUE: High resolution transaxial imaging was performed without contrast material. Sagittal and coronal images were reconstructed. Individualized dose optimization techniques were used for this CT. COMPARISON: CT cervical spine 03/08/2021. FINDINGS: ALIGNMENT: Minimal anterior subluxation of C3 on C4 Straightening of the normal curvature. MINERALIZATION: Normal. VERTEBRAL BODIES: No fracture or acute abnormality. DISC SPACES: Unremarkable. POSTERIOR ELEMENTS: Facet arthropathy at most levels. SPINAL CANAL: Maintained. PARASPINAL SOFT TISSUES: Unremarkable. OTHER: Left pneumothorax. Portion of the central venous catheter noted on the right. CT/Spine Cervical without Contras IMPRESSION: No evidence of fracture or traumatic subluxation. Minimal anterolisthesis at C3-4 likely secondary to the degenerative changes. Straightening of the normal curve may be due to positioning or muscle spasm. Left pneumothorax. CT chest was obtained and will be reported separately. Electronically Signed: Nahomy Duque MD at 23:51 EDT ,
--- NOTE | 2021-10-06 21:57 | CT_ITS ---
STUDY: CT CHEST, ABDOMEN T PELVIS WITH CONTRAST REASON FOR EXAM: Female, 75 years old. fall RADIATION DOSAGE (If Supplied By Facility): CTDIvol = ( 12.32 ) mGy, DLP = ( 1326.94 ) mGycm TECHNIQUE: Transaxial imaging was performed following intravenous administration of IV 100mL [id number]-300. Individualized dose optimization techniques were used for this CT. COMPARISON: No relevant priors. FINDINGS: CHEST LUNGS: Groundglass opacities in the left upper lobe and left lower lobe. Partial atelectasis left lower lobe. Dependent atelectasis right lower lobe. PLEURA: Large left pneumothorax, at least 50% volume. Small to moderate left pleural effusion component. MEDIASTINUM: Mediastinal structures are shifted to the right. Minimal retrosternal hematoma along the sternal manubrium to the upper sternum adjacent to the sternomanubrial fracture. HEART: Not enlarged. Partially shifted to the right. AORTA: Normal caliber. BONES/SOFT TISSUES: Fracture of the sternal manubrium on the left extends to the junction of the left first rib. Comminuted fracture of the left scapula involving the lower body through the tip, with at least 2 cm of anterior displacement of the distal tibia fragment. Multiple left rib fractures including third through eighth ribs posteriorly moderately displaced, and also fractures posterolaterally third through eighth, and the ninth and 10th ribs which are moderately displaced. Air in soft tissues along the left posterior chest wall and left lateral wall to the axilla. Acute fracture of the distal left clavicle minimally displaced. Old fracture left humerus partially included in the scan. Surgical hardware in the right proximal humerus. Nonacute right rib fractures. T12 marked compression fracture appears nonacute with kyphosis. OTHER: Indwelling central venous catheter with tip in the superior vena cava. ABDOMEN PELVIS LIVER: Unremarkable. GALLBLADDER/BILE DUCTS: Unremarkable. PANCREAS: Unremarkable. SPLEEN: Unremarkable. ADRENAL GLANDS: Unremarkable. KIDNEYS / URETERS: Unremarkable. BOWEL / MESENTERY: Scattered diverticula throughout the colon. No bowel obstruction. Moderate amount of stool in the colon. APPENDIX: Not identified. PERITONEUM: No free air. No free fluid. VESSELS: Abdominal aorta is normal caliber. RETROPERITONEUM: Unremarkable. REPRODUCTIVE ORGANS: Unremarkable. BLADDER: Unremarkable. ABDOMINAL WALL: Unremarkable. BONES: No acute fracture demonstrated. Degenerative changes lumbar spine and right hip. OTHER: None. CT/CT Chest, Abd, Pel w/Contrast IMPRESSION: 1. Large left tension pneumothorax. Small pleural effusion/hemothorax component. 2. Left upper and lower lobe pulmonary contusion. 3. Sternomanubrial fracture nondepressed with very small retrosternal hematoma. 4. Multiple left rib fractures including multiple flail segments. 5. Left scapular fracture and fracture distal left clavicle. 6. No evidence of acute intra-abdominal injury. I discussed the findings, and findings of the head CT, with Dr. Razo by telephone at 9:08 PM PT. N.B. : The above Results were Read Back by Nahomy Duque MD to Eliel Razo MD, and understanding confirmed on 10/07/2021 00:09:36 (ET). Electronically Signed: Nahomy Duque MD at 0:19 EDT ,
--- NOTE | 2021-10-06 22:21 | EDS_ITS ---
HPI HPI - Fall History of Present Illness Chief Complaint: Fall Informant: patient and friend Occured/Mechanism Occurred: Today Usually ambulates: Without assistance Pain/Injury Pain Location: head, face and upper extremity Quality of Pain: Sharp Current Severity: Moderate Maximum Severity: Moderate Associated Symptoms Associated Symptoms: Positive for Amnesia; Negative for Parasthesias, Weakness, Loss of function or Inability to ambulate Narrative Narrative: 75-year-old female lives alone at home with her dogs. She has a caregiver. Patient's parents were recently out. Caregiver was there today had to go out take care of some things and came back about an hour and 5 minutes later patient had fallen and was laying down on the floor by the steps. She is unsure of how many steps she fell down. There carpeted steps. Uncertain if she had any LOC because this was completely unwitnessed. The patient is amnestic to the event. She believes she just lost her balance. She does have a history of falls. She is on chronic pain medications at home. She has had a history of breast cancer. The only blood thinner she is on is aspirin. Patient complaining of pain to her face and head. Left posterior shoulder. Elbow. She denies any prefall symptoms or recent illness. Prior similar symptoms: Yes Recent Illness/Hospitalization: No PFSH PFSH Medical History Alcohol abuse Alcohol intoxication Anemia Anxiety Arthritis Back problem Benzodiazepine dependence Bladder infection Bone fracture Breast cancer Breast cancer Breast lump BROKEN ARM REPAIR Calcium deficiency Cancer Debility Depression Depression Fall Frequent falls GERD (gastroesophageal reflux disease) Glaucoma High cholesterol High triglycerides History of recent fall HTN (hypertension) Hypertension Hypokalemia Hypomagnesemia Hyponatremia Hypoparathyroidism after procedure Hypothyroidism Hypothyroidism Hypothyroidism (acquired) Melanoma Multiple rib fractures Opioid dependence Pancreatitis Parathyroid abnormality Pneumonia Postsurgical hypoparathyroidism Postsurgical hypothyroidism Rheumatoid arthritis Right arm fracture Scalp laceration Skin cancer Subdural hematoma Tobacco abuse UTI (urinary tract infection) Vitamin D deficiency Home Medications buspirone 5 mg tablet 5 tablet PO DAILY MOOD 08/01/20 [History Last Taken 03/07/21] clonazepam 1 mg tablet 1 mg PO DAILY PRN Anxiety 08/01/20 [History Last Taken 03/08/21] folic acid-vit B6-vit B12 2.5 mg-25 mg-1 mg tablet 1 ea PO DAILY SUPPLEMENT 08/01/20 [History Last Taken 03/08/21] indapamide 1.25 mg tablet 1.25 mg PO DAILY HEART 08/01/20 [History Last Taken 03/08/21] letrozole 2.5 mg tablet 2.5 mg PO DAILY 08/01/20 [History Last Taken 03/08/21] nortriptyline 50 mg capsule 50 mg PO QHS 08/01/20 [History Last Taken 03/07/21] potassium chloride 20 mEq tablet,extended release(part/cryst) 20 meq PO BID SUPPLEMENT 08/01/20 [History Last Taken 03/08/21] valacyclovir 1 gram tablet 1,000 mg PO DAILY SHINGLES 08/01/20 [History Last Taken 03/08/21] famotidine 20 mg tablet (Pepcid) 20 mg PO BID GERD 03/08/21 [History Last Taken 03/07/21] lisinopril 10 mg tablet 10 mg PO DAILY BP 03/08/21 [History Last Taken 03/08/21] pregabalin 50 mg capsule 50 mg PO BID PAIN 03/08/21 [History Last Taken 03/08/21] cyclobenzaprine 5 mg tablet 5 mg PO TID PRN PRN Muscle Spasm #10 tabs 03/09/21 [Rx Last Taken Unknown] dexamethasone sodium phosphate 0.1 % eye drops 1 drp ophthalmic (eye) BID glaucoma 03/09/21 [History Last Taken 03/08/21 06:00] oxycodone 5 mg tablet 5 mg PO Q6H PRN pain 3 days #12 tabs 03/09/21 [Rx Last Taken Unknown] meclizine 25 mg tablet 25 mg PO Q8H PRN PRN Dizziness #20 tabs 05/21/21 [Rx Last Taken Unknown] hydrocodone 10 mg-acetaminophen 325 mg tablet 1 tab PO Q4H PRN PRN Pain 06/11/21 [History Last Taken Unknown] calcitriol 0.5 mcg capsule 0.5 mcg PO DAILY #90 caps 08/07/21 [Rx Last Taken Unknown] calcium carb,cit ER 600 mg-vit D3 12.5 mcg (500 unit) tablet,ext.rel (Citracal- D3 Slow Release) 1 tab PO DAILY #1 TAB 08/07/21 [Rx Last Taken Unknown] levothyroxine 125 mcg tablet 125 mcg PO DAILY #90 tabs 08/28/21 [Rx Last Taken Unknown] Allergy/AdvReac Type Severity Reaction Status Date / Time bacitracin Allergy Unknown Unknown Verified 10/06/21 21:18 [From Neosporin ([id number])] neomycin Allergy Unknown Unknown Verified 10/06/21 21:18 [From Neosporin ([id number])] polymyxin B Allergy Unknown Unknown Verified 10/06/21 21:18 [From Neosporin ([id number])] Family History Unknown Thyroid disorder Cancer High cholesterol Arthritis Mother Cancer Diabetes Father , Father at the age of 50 from successful suicide attempt. Suicidal intent Other Alcohol abuse Anxiety Depression Heart disease Hypertension Mental disorder Parkinson disease Psychiatric care Surgical History H/O mastectomy H/O thyroidectomy Status post glaucoma surgery Social History household members: none Smoking Status: Former smoker second hand exposure: Yes alcohol intake: never substance use type: does not use ROS ROS ED ROS Narrative Patient denies recent illness. Review of Systems ROS Unobtainable: Denies due to encephalopathy Constitutional Constitutional ED: Denies chills Eyes Eyes: Denies blurry vision ENT ENT ED: Denies ear pain Cardiovascular Cardiovascular: Denies chest pain Respiratory/Chest Respiratory/Chest: Denies cough Gastrointestinal Gastrointestinal: Denies abdominal pain Genitourinary Genitourinary ED: Denies dysuria Musculoskeletal Musculoskeletal: Denies arthralgias Integumentary Denies abscess Neurologic Neurologic: Denies headache(s) Psychiatric Psychiatric: Denies anxiety Endocrine Endocrinology: Denies polydipsia Hematologic/Lymphatic Hematologic/Lymphatic: Denies easy bleeding Allergic/Immunologic Allergic/Immunologic ED: Denies mouth swelling EXAM Physical Exam Narrative Exam Narrative: 75-year-old female vital signs are stable afebrile. Pulse ox 94% on room air no signs hypoxia. She does not look septic or toxic. H EENT exam pupils round reactive light motions are intact. She has multiple areas of contusions and bruising of her face primarily around the left eye. Swelling and tenderness around her right orbit and cheek. Dentition intact. Scalp nontender. C-spine nontender. Trachea midline. Lungs clear to auscultation. Heart regular rhythm no murmur. Chest wall nontender. No crepitus or subcu air. Abdomen soft nontender no signs of trauma. Pelvic girdle intact. Moving all 4 extremities. She has tenderness to her primarily left posterior shoulder blade and shoulder. No deformity. Also mild tenderness to her left elbow. Left wrist and hand nontender. Normal neon glass blower strength. Right shoulder, elbow and wrist are nontender. Hips are nontender. No shortening or rotation. Knees and ankles are nontender. Neurologically she is awake. She answers questions. She is amnestic to the actual fall. She does not remember what happened. She does answer questions. She knows she is in the hospital. She knows the month and year. She knows the president. Const Vital Signs: 10/06/21 21:19 10/06/21 21:36 10/06/21 22:48 Temperature 96.9 F L Temperature Source Temporal Pulse Rate 93 86 Respiratory Rate 18 14 Respiratory Effort Normal Non-Labored Respiratory Depth Normal Respiratory Pattern Normal Blood Pressure 121/65 H 126/69 H Blood Pressure Mean 83 88 Pulse Ox 94 95 Oxygen Delivery Method Room Air Room Air Room Air Oxygen Flow Rate (L/min) 10/06/21 23:00 10/07/21 00:20 10/07/21 01:00 Temperature Temperature Source Pulse Rate 87 82 85 Respiratory Rate 11 L 15 14 Respiratory Effort Respiratory Depth Respiratory Pattern Blood Pressure 140/86 H 114/73 138/81 H Blood Pressure Mean 104 86 100 Pulse Ox 100 97 100 Oxygen Delivery Method Room Air Room Air Nasal Cannula Oxygen Flow Rate (L/min) 2 Positive well nourished and well developed; Negative for obese, cachectic, contractures or unkempt General Appearance ED: well developed; Negative for unkempt, cachectic or contractures Nutritional Appearance: Negative for cachectic or obese HEENT Reports normocephalic trauma, contusion and tenderness; Negative for atraumatic Eyes PERRL and EOMs intact bilaterally General Eye ED: Negative for scleral icterus Neck full ROM, no lymphadenopathy and supple Chest Wall inspection of chest normal and palpation of chest normal Resp normal respiratory effort, no retractions and clear to auscultation bilaterally Auscultation: Negative for rales, rhonchi or wheezes Cardio regular rate, regular rhythm, S1 normal heart sound and S2 normal heart sound GI non-tender and no masses Inspection: Negative for abdominal distention Auscultation: normoactive bowel sounds Palpation: soft; Negative for guarding Back/Spine no CVA tenderness Neuro oriented x3, moves all extremities and no focal motor deficits [place] Coma Scale: document GCS findings Spontaneous Obeys Commands Oriented 15 Sensorium / Orientation: alert, oriented to person, oriented to place and oriented to time; Negative for orientation impaired, confused, lethargic or stuporous Motor Exam: strength 5/5 throughout Psych mental status grossly normal and thought process normal Appearance: Negative for unkempt Skin Skin Narrative: Facial contusions. Rashes: no rashes Trauma: Negative for abrasion or laceration MDM MDM MDM Narrative Medical decision making narrative: 75-year-old female history of falls fell down steps at home is unknown if she fell from the bottom of the steps and only fell several feet or if she fell from top of steps and fell and entire staircase. Patient has significant facial contusions. She did have CAT scans of her brain, face, C-spine, chest abdomen and pelvis. X-rays are also being obtained. Along with screening labs. Patient's labs and CAT scans returned showing the significant other injuries including a suspected small intracranial bleed (parenchymal contusion), multiple left rib fractures, large left pneumothorax, left clavicle fracture and a left scapular fracture. Discussed all the injuries with the patient and friend at bedside. Patient was prepped and a 28 Hungarian chest tube was placed on the left. Patient tolerated procedure well. Her vital signs are stable. She is awake alert and talking. She was given a second dose of morphine. I have already spoken to [facility] emergency department. The emergency physicians have accepted her in a trauma transfer. There is been to be significant delay of 2 hours or more for ground transport. Patient will be sent by helicopter. They should be here momentarily. Levin catheter has been placed. Patient is in a c-collar. Second IV has been placed. Patient is currently doing well. Stable vital signs. Stable heart rate. She is awake alert. Answering questions and following commands. This is at 1:05 AM. Lab Data Attestation: I reviewed the patient's lab results. Lab results narrative: CBC shows a white count of 31.5. H&H of 10.3 and 30.2. Platelets of 317. Electrolytes show sodium 130. Potassium of 3.1. Gap is 7. BUN of 20 creatinine 0.8. Liver enzymes unremarkable. Additional labs are pending. CAT scan of her brain showed a small parenchymal bleed. CAT scan of her chest showed multiple rib fractures at least 5 on the left with a large pneumothorax. Left clavicle fracture. Left scapular fracture. PT, INR and PTT are normal. Alcohol levels negative. Labs: Laboratory Results - last 24 hr 10/06/21 10/06/21 10/06/21 22:32 22:32 22:32 WBC 31.5 H* RBC 3.16 L Hgb 10.3 L Hct 30.2 L MCV 95.6 MCH 32.6 H MCHC 34.1 RDW Std Deviation 45.3 H RDW Coeff of Felix 12.8 Plt Count 317 MPV 9.9 Immature Gran % (Auto) 0.900 Neut % (Auto) 90.5 H Lymph % (Auto) 2.7 L [place] % (Auto) 5.3 Eos % (Auto) 0.3 Baso % (Auto) 0.3 Absolute Neuts (auto) 28.5 H Absolute Lymphs (auto) 0.86 Nucleated RBC % 0 Differential Comment SCANNED Diff Path Review May foll PT INR APTT Sodium 130 L Potassium 3.1 L Chloride 96 L Carbon Dioxide 27.0 Anion Gap 7 BUN 20 H Creatinine 0.84 Estim Creat Clear Calc 54.70 Est GFR (MDRD) Af Amer 85 Est GFR (MDRD) Non-Af 70 BUN/Creatinine Ratio 23.8 H Glucose 169 H Calcium 8.2 L Total Bilirubin 0.50 AST 31 ALT 26 Alkaline Phosphatase 62 Total Protein 6.5 Albumin 3.6 Globulin 2.9 Albumin/Globulin Ratio 1.2 Ethyl Alcohol < 3.0 10/07/21 00:16 WBC RBC Hgb Hct MCV MCH MCHC RDW Std Deviation RDW Coeff of Felix Plt Count MPV Immature Gran % (Auto) Neut % (Auto) Lymph % (Auto) [place] % (Auto) Eos % (Auto) Baso % (Auto) Absolute Neuts (auto) Absolute Lymphs (auto) Nucleated RBC % Differential Comment Diff Path Review PT 14.6 INR 1.2 APTT 29.6 Sodium Potassium Chloride Carbon Dioxide Anion Gap BUN Creatinine Estim Creat Clear Calc Est GFR (MDRD) Af Amer Est GFR (MDRD) Non-Af BUN/Creatinine Ratio Glucose Calcium Total Bilirubin AST ALT Alkaline Phosphatase Total Protein Albumin Globulin Albumin/Globulin Ratio Ethyl Alcohol Radiography Diagnostic Testing: Clinical Impression(s) from Imaging Studies Brain CT 10/06/21 21:56 IMPRESSION: Small right parietal parenchymal hemorrhagic contusion. Differential diagnosis also includes hyperdense metastatic focus given history of breast cancer and melanoma. Follow-up MRI may be helpful for further evaluation and to assess for additional lesions. Fluid level left maxillary sinus possible sinusitis. CT facial bones may be helpful to evaluate for fracture. Electronically Signed: Nahomy Duque MD at 23:48 EDT Reading Location ID and State: [employer] / [employer] , Service support , Cervical Spine CT 10/06/21 21:56 IMPRESSION: No evidence of fracture or traumatic subluxation. Minimal anterolisthesis at C3-4 likely secondary to the degenerative changes. Straightening of the normal curve may be due to positioning or muscle spasm. Left pneumothorax. CT chest was obtained and will be reported separately. Electronically Signed: Nahomy Duque MD at 23:51 EDT Reading Location ID and State: [employer] / [employer] , Service support , Facial/Sinus 10/06/21 21:56 IMPRESSION: Suspect nondisplaced fracture of the posterolateral wall left maxillary sinus. Electronically Signed: Nahomy Duque MD at 23:55 EDT Reading Location ID and State: [employer] / [employer] , Service support , Shoulder X-Ray 10/06/21 21:56 IMPRESSION: Acute left scapular fracture, distal left clavicle fracture, and multiple left rib fractures. Small left pneumothorax incompletely assessed. Old left humerus fracture. Electronically Signed: Nahomy Duque MD at 0:00 EDT Reading Location ID and State: [employer] / [employer] , Service support , Chest/Abdomen/Pelvis CT 10/06/21 21:57 IMPRESSION: 1. Large left tension pneumothorax. Small pleural effusion/hemothorax component. 2. Left upper and lower lobe pulmonary contusion. 3. Sternomanubrial fracture nondepressed with very small retrosternal hematoma. 4. Multiple left rib fractures including multiple flail segments. 5. Left scapular fracture and fracture distal left clavicle. 6. No evidence of acute intra-abdominal injury. I discussed the findings, and findings of the head CT, with Dr. Razo by telephone at 9:08 PM PT. N.B. : The above Results were Read Back by Nahomy Duque MD to Eliel Razo MD, and understanding confirmed on 10/07/2021 00:09:36 (ET). Electronically Signed: Nahomy Duque MD at 0:19 EDT , ADDENDUM: 10/07/21 0026 IMPRESSION: 1. Large left tension pneumothorax. Small pleural effusion/hemothorax component. 2. Left upper and lower lobe pulmonary contusion. 3. Sternomanubrial fracture nondepressed with very small retrosternal hematoma. 4. Multiple left rib fractures including multiple flail segments. 5. Left scapular fracture and fracture distal left clavicle. 6. No evidence of acute intra-abdominal injury. I discussed the findings, and findings of the head CT, with Dr. Razo by telephone at 9:08 PM PT. N.B. : The above Results were Read Back by Nahomy Duque MD to Eliel Razo MD, and understanding confirmed on 10/07/2021 00:09:36 (ET). Electronically Signed: Nahomy Duque MD at 0:19 EDT , Elbow X-Ray 10/06/21 23:26 IMPRESSION: No evidence of acute fracture. Soft tissue swelling. Electronically Signed: Nahomy Duque MD at 23:57 EDT , Left shoulder x-ray showed a scapula and a clavicle fracture. 2 views interpreted by myself and the radiologist. Left elbow x-ray showed no acute fracture or dislocation. 3 views interpreted by myself and the radiologist. Rhythm Strip Rhythm Strip: Sinus Rhythm Rate: 89 Ectopy: None EKG Initial EKG: Attestation: I personally reviewed and interpreted this EKG as follows: Interpretation: Sinus Rhythm and No Acute Injury Pattern Comments: Normal sinus rhythm rate 89 no acute signs of ND, ischemia or dysrhythmia. Procedures Other Procedures Procedure(s): Patient had a large left pneumothorax. Multiple rib fractures. I discussed with her treatment plan. She had a 28 Hungarian chest tube placed on her left lateral chest mid axillary line. She has had prior mastectomies so it was difficult to ascertain landmarks. Area was cleaned with iodine. Local anesthetized with lidocaine. I made about a 1-1/2 inch incision. Used a hemostat to go through the intercostal space and placed the 28 Hungarian chest tube. There was 10 to 20 cc of blood from the chest tube. He did not continue to bleed. There was a good ray of air. Post chest x-ray the pneumothorax appears to be reexpanding. The chest tube is not an ideal but decent positioning. Critical Care Time Critical Care Time: Yes Critical care time (excluding procedures): 30-74 minutes, Including time spent:, Discussing w/Patient &/or Family/[employer] Feeder, Discussing w/Consultants, Arranging Admission or Transfer, Performing Direct Patient Care at Bedside and - (35 min) Discharge Plan Triage Chief Complaint: Fall ED Provider: Rc Razo Dx/Rx/DC Orders Clinical Impression: Fall down steps, Left rib fracture, Pneumothorax on left, Closed fracture of left scapula, Closed fracture of left clavicle, Intracranial bleed, Head injury, Loss of consciousness, Chronic anemia, Chest tube in place Prescriptions: No Action valacyclovir 1 gram tablet 1,000 mg PO DAILY Label Comments: TAKE 1 TABLET BY MOUTH THREE TIMES A DAY letrozole 2.5 mg tablet 2.5 mg PO DAILY Label Comments: TAKE 1 TABLET BY MOUTH EVERY DAY indapamide 1.25 mg tablet 1.25 mg PO DAILY Label Comments: TAKE 1 TABLET BY MOUTH EVERY DAY IN THE MORNING potassium chloride 20 mEq tablet,ER particles/crystals 20 meq PO BID Label Comments: TAKE 1 TABLET BY MOUTH EVERY OTHER DAY folic acid-vit B6-vit B12 2.5-25-1 mg tablet 1 ea PO DAILY Label Comments: TAKE 1 TABLET BY MOUTH EVERY DAY buspirone 5 mg tablet 5 tablet PO DAILY nortriptyline 50 mg capsule 50 mg PO QHS clonazepam 1 mg tablet 1 mg PO DAILY PRN (Reason: Anxiety) Label Comments: 1 TABLET BY MOUTH 5 TIMES DAILY NEEDED FOR ANXIETY calcium carb and citrate-vitD3 [Citracal-D3 Slow Release] 600 mg-12.5 mcg (500 unit) tablet extended release 1 tab PO DAILY Qty: 1 0RF calcitriol 0.5 mcg capsule 0.5 mcg PO DAILY Qty: 90 3RF Rx Instructions: please discontinue any rx for calcitriol by an other doctors lisinopril 10 mg tablet 10 mg PO DAILY pregabalin 50 mg capsule 50 mg PO BID famotidine [Pepcid] 20 mg tablet 20 mg PO BID dexamethasone sodium phosphate 0.1 % drops 1 drp ophthalmic (eye) BID Rx Instructions: R eye only oxycodone 5 mg Tablet 5 mg PO Q6H PRN (Reason: pain) 3 Days Qty: 12 0RF cyclobenzaprine 5 mg Tablet 5 mg PO TID PRN PRN (Reason: Muscle Spasm) Qty: 10 0RF meclizine [meclizine] 25 MG tablet 25 mg PO Q8H PRN PRN (Reason: Dizziness) Qty: 20 0RF hydrocodone-acetaminophen 10-325 mg tablet 1 tab PO Q4H PRN PRN (Reason: Pain) levothyroxine 125 mcg tablet 125 mcg PO DAILY Qty: 90 3RF Rx Instructions: Please discontinue any levothyroxine orders from any other doctors Primary Care Provider: Erica Richardson Referrals: Erica Richardson DO [Primary Care Provider] - Disposition Disposition: Acute Care Hospital
[2021-10-06] MEDS: Morphine 4 MG/ML Syringe IV (22:37)
[2021-10-06] MEDS: Ondansetron 4 MG/2 ML Vial IV (22:37)
[2021-10-06 22:42] LABS: Absolute Lymphocyte Count 0.86 X10^3/uL (0.83-4.51); Absolute Neutrophil Count 28.5 X10^3/uL (2.0-7.7); Basophil# 0.11 X10^3/uL; Basophil% 0.3 % (0-1); Eosinophil# 0.11 X10^3/uL; Eosinophils% 0.3 % (0-5); Hematocrit 30.2 % (37-47); Hemoglobin 10.3 g/dL (12.0-15.0); Lymphocyte # 0.86 X10^3/ul (0.83-4.51); Lymphocyte % 2.7 % (19-41); Mean Corp Hgb Conc 34.1 g/dL (32-36); Mean Corpuscular Hgb 32.6 pg (27.0-32.0); Mean Corpuscular Volume 95.6 fL (81-99); Mean Platelet Vol. 9.9 fl (6.2-12.0); Monocyte# 1.67 X10^3/uL; Monocyte% 5.3 % (0-10); NRBC Flagged by Analyzer 0 % (0-5); Neutrophil # 28.48 X10^3/uL (2.7-7.7); Neutrophil % 90.5 % (47-70); POSITIVE COUNT YES; POSITIVE DIFFERENTIAL YES; Platelet Count 317 K/mm3 (150-450); RBC Distribution Width CV 12.8 % (11.6-14.6); RBC Distribution Width SD 45.3 fl (35.1-43.9); Red Blood Count 3.16 M/mm3 (4.2-5.4)
[2021-10-06 22:48] VITALS: BP 126/69; PULSE 86; RESP 14; O2SAT 95
[2021-10-06 22:58] LABS: Differential Indicated SCAN CRITERIA MET
[2021-10-06 22:59] LABS: White Blood Count 31.5 K/mm3 (4.4-11.0)
[2021-10-06 23:00] VITALS: BP 140/86; PULSE 87; RESP 11; O2SAT 100
[2021-10-06 23:01] LABS: ALB/GLOB Ratio 1.2 RATIO (0.9-2.4); AST(SGOT) 31 U/L (15-37); Alanine Aminotransfer ALT/SGPT 26 U/L (13-56); Albumin, Serum 3.6 g/dL (3.2-5.0); Alkaline Phosphatase 62 U/L (45-117); Anion Gap 7 (5-15); BUN 20 mg/dL (7-18); BUN/Creat Ratio 23.8 RATIO (10-20); Calcium,Total 8.2 mg/dL (8.5-10.1); Chloride 96 mmol/L (98-107); Creatinine, Serum 0.84 mg/dL (0.55-1.02); EST Glomerular Filtration Rate 70 mL/min (>60); Est Glom Filt Rate - Afr Amer 85 mL/min (>60); Globulin 2.9 g/dL (2.2-4.2); Glucose 169 mg/dL (74-106); Potassium 3.1 mmol/L (3.5-5.1); Protein, Total 6.5 g/dL (6.4-8.2); Sodium Level 130 mmol/L (136-145)
--- NOTE | 2021-10-06 23:26 | RAD_ITS ---
STUDY: X-RAY - LEFT ELBOW REASON FOR EXAM: Female, 75 years old. fall TECHNIQUE: 3 view(s) of the elbow. COMPARISON: None. FINDINGS: BONES: No fracture demonstrated. Deformity mid humerus from old fracture, partially included JOINTS: No dislocation. SOFT TISSUES: Soft tissue swelling posteriorly distal humerus through elbow. RAD/Elbow min 3 Views IMPRESSION: No evidence of acute fracture. Soft tissue swelling. Electronically Signed: Nahomy Duque MD at 23:57 EDT ,
[2021-10-06 23:30] LABS: Differential Comment SCANNED
[2021-10-07 00:20] VITALS: BP 114/73; PULSE 82; RESP 15; O2SAT 97
[2021-10-07 00:22] LABS: Alcohol, Blood (Medical)-Serum < 3.0 mg/dL
--- NOTE | 2021-10-07 00:26 | ED.RN ---
called physicians for transport 90 min to 2 hours to transport. asked to outsource.
[2021-10-07 00:29] LABS: International Normalized Ratio 1.2; Prothrombin Time (Protime)PT. 14.6 SECONDS (11.7-14.9)
[2021-10-07 00:30] LABS: Partial Thromboplast Time 29.6 Seconds (24.1-36.2)
[2021-10-07] MEDS: morphine 8 MG/ML Syringe 6 MG IV (00:32)
[2021-10-07] MEDS: Lidocaine 1% (20 ml mdv) 20 ML Vial 10 ML INFILT (00:33)
--- NOTE | 2021-10-07 00:35 | ED.RN ---
physicians unable to outsource. Dr. Razo said to fly. [facility] contacted, 25 minutes for [facility].
--- NOTE | 2021-10-07 00:55 | RAD_ITS ---
STUDY: X-RAY CHEST REASON FOR EXAM: Female, 75 years old. CHEST TUBE PLACEMENT TECHNIQUE: AP portable. 12:45 AM. COMPARISON: CT chest, left shoulder x-rays earlier. FINDINGS: LINES/DEVICES: Left chest tube in place with tip directed medially at the suprahilar level. Indwelling central venous catheter tip in the region of the mid SVC. LUNGS: Hazy opacity in the left upper lobe. Minimal atelectasis in the right lung base. Tiny residual left apical pneumothorax, significantly decreased. MEDIASTINUM: Unremarkable. Decreased mediastinal shift. CARDIAC SILHOUETTE: Not enlarged. BONES AND SOFT TISSUES: Multiple acute left rib fractures. Distal left clavicle fracture. Left scapular fracture not well visualized. Surgical hardware in the right humerus. Air in the soft tissues along the left lateral chest wall. RAD/Chest 1 View (Portable) IMPRESSION: Interval placement of left chest tube with significantly decreased left pneumothorax. Left upper lobe atelectasis versus contusion. Minimal right basilar atelectasis. Small amount of subcutaneous emphysema along the left chest wall. Electronically Signed: Nahomy Duque MD at 1:51 EDT ,
[2021-10-07 01:00] VITALS: BP 138/81; PULSE 85; RESP 14; O2SAT 100
[2021-10-07 01:10] LABS: Mucous, Urine 0 SEEN /hpf (<or=2+); Squamous Epithelial Cells - UA 0 SEEN /hpf (5-10)
[2021-10-07 01:11] LABS: Color, Urine Yellow (Yellow); Glucose, Dipstick Normal (Normal); Ketone-Dipstick Negative (Negative); Leukocyte Esterase-Dipstick 100 /ul (Negative); Nitrite-Dipstick Negative (Negative); Occult Blood-Urine Negative /ul (Negative); Protein-Dipstick 15 mg/dl (Negative); Urine Bilirubin Dipstick Negative (Negative); Urine Clarity Clear (Clear); Urine Urobilinogen Normal (Normal)
[2021-10-07 01:17] LABS: Bacteria 3+ /hpf (None Seen); Red Blood Cells-Urine 0-5 SEEN /hpf (0-5); White Blood Cells 10-25 SEEN /hpf (0-5)
--- NOTE | 2021-10-07 01:29 | ED.RN ---
[facility] in emergency department.
[2021-10-09 13:30] LABS: Pathologist Review Reviewed
== END 2021-10-07 01:41 | disposition short-term general hospital (02) ==
PROVIDERS: Emergency Provider Emergency Medicine; PCP Family Medicine; Visit Provider Emergency Medicine
DX: S27.0XXA Traumatic pneumothorax, initial encounter (principal); I62.9 Nontraumatic intracranial hemorrhage, unspecified; R26.2 Difficulty in walking, not elsewhere classified; Z87.891 Personal history of nicotine dependence; E78.00 Pure hypercholesterolemia, unspecified; G89.29 Other chronic pain; D64.9 Anemia, unspecified; S42.102A Fracture of unspecified part of scapula, left shoulder, initial encounter for closed fracture; I10 Essential (primary) hypertension; W10.9XXA Fall (on) (from) unspecified stairs and steps, initial encounter; Z85.3 Personal history of malignant neoplasm of breast; Z79.82 Long term (current) use of aspirin; E03.9 Hypothyroidism, unspecified
CPT/HCPCS: 32556; 36591; 70450; 70486; 71045; 71260; 72125; 73030; 73080; 74177; 80053; 81001; 82077; 85025; 85610; 85730; 93005; 96374; 96375; 96376; 99285; J7030; Q9967; A4216; J2405

== ENCOUNTER → 2021-10-24 | Outpatient (REF) | payer SELFPAY ==
[2021-10-24 09:12] LABS: Hematocrit 24.7 % (37-47); Hemoglobin 8.3 g/dL (12.0-15.0); Mean Corp Hgb Conc 33.6 g/dL (32-36); Mean Corpuscular Hgb 31.6 pg (27.0-32.0); Mean Corpuscular Volume 93.9 fL (81-99); Mean Platelet Vol. 9.4 fl (6.2-12.0); Platelet Count 529 K/mm3 (150-450); RBC Distribution Width CV 13.9 % (11.6-14.6); RBC Distribution Width SD 47.5 fl (35.1-43.9); Red Blood Count 2.63 M/mm3 (4.2-5.4); White Blood Count 12.7 K/mm3 (4.4-11.0)
[2021-10-24 09:22] LABS: Anion Gap 8 (5-15); BUN 9 mg/dL (7-18); BUN/Creat Ratio 25.4 RATIO (10-20); Calcium,Total 7.9 mg/dL (8.5-10.1); Chloride 95 mmol/L (98-107); Creatinine, Serum 0.35 mg/dL (0.55-1.02); EST Glomerular Filtration Rate 190 mL/min (>60); Est Glom Filt Rate - Afr Amer 230 mL/min (>60); Glucose 90 mg/dL (74-106); Potassium 3.4 mmol/L (3.5-5.1); Sodium Level 130 mmol/L (136-145)
== END | disposition home or self-care (01) ==
LOC: OLS.WHLTCC 04:00
PROVIDERS: PCP Family Medicine; Referring Provider Family Medicine; Visit Provider Family Medicine
DX: S06.360D Traumatic hemorrhage of cerebrum, unspecified, without loss of consciousness, subsequent encounter (principal); S22.42XD Multiple fractures of ribs, left side, subsequent encounter for fracture with routine healing; F41.9 Anxiety disorder, unspecified; D72.829 Elevated white blood cell count, unspecified
CPT/HCPCS: 36415; 80048; 85027

== ENCOUNTER → 2021-10-27 | Outpatient (REF) | payer SELFPAY ==
[2021-10-27 09:16] LABS: Anion Gap 7 (5-15); BUN 4 mg/dL (7-18); BUN/Creat Ratio 7.4 RATIO (10-20); Calcium,Total 7.1 mg/dL (8.5-10.1); Chloride 98 mmol/L (98-107); Creatinine, Serum 0.54 mg/dL (0.55-1.02); EST Glomerular Filtration Rate 118 mL/min (>60); Est Glom Filt Rate - Afr Amer 143 mL/min (>60); Glucose 150 mg/dL (74-106); Potassium 3.2 mmol/L (3.5-5.1); Sodium Level 136 mmol/L (136-145)
== END | disposition home or self-care (01) ==
LOC: OLS.WHLTCC 05:00
PROVIDERS: PCP Family Medicine; Visit Provider Family Medicine
DX: S06.360D Traumatic hemorrhage of cerebrum, unspecified, without loss of consciousness, subsequent encounter (principal); S22.42XD Multiple fractures of ribs, left side, subsequent encounter for fracture with routine healing; K59.00 Constipation, unspecified; E87.6 Hypokalemia
CPT/HCPCS: 36415; 80048

== ENCOUNTER → 2021-10-31 | Outpatient (REF) | payer SELFPAY ==
[2021-10-31 09:28] LABS: Hemoglobin 9.3 g/dL (12.0-15.0); Mean Corpuscular Hgb 29.8 pg (27.0-32.0); Mean Corpuscular Volume 96.2 fL (81-99); Mean Platelet Vol. 9.8 fl (6.2-12.0); Platelet Count 459 K/mm3 (150-450); RBC Distribution Width CV 14.3 % (11.6-14.6); RBC Distribution Width SD 50.3 fl (35.1-43.9); Red Blood Count 3.12 M/mm3 (4.2-5.4); White Blood Count 12.1 K/mm3 (4.4-11.0)
[2021-10-31 09:38] LABS: Anion Gap 10 (5-15); BUN 7 mg/dL (7-18); BUN/Creat Ratio 14.1 RATIO (10-20); Calcium,Total 7.8 mg/dL (8.5-10.1); Chloride 99 mmol/L (98-107); EST Glomerular Filtration Rate 129 mL/min (>60); Est Glom Filt Rate - Afr Amer 157 mL/min (>60); Glucose 107 mg/dL (74-106); Potassium 3.5 mmol/L (3.5-5.1); Sodium Level 135 mmol/L (136-145)
== END | disposition home or self-care (01) ==
LOC: OLS.WHLTCC 07:00
PROVIDERS: PCP Family Medicine; Visit Provider Family Medicine
DX: S06.360D Traumatic hemorrhage of cerebrum, unspecified, without loss of consciousness, subsequent encounter (principal); S22.42XD Multiple fractures of ribs, left side, subsequent encounter for fracture with routine healing; F41.9 Anxiety disorder, unspecified; D72.829 Elevated white blood cell count, unspecified
CPT/HCPCS: 80048; 85027

== ENCOUNTER → 2021-11-07 | Outpatient (REF) | payer SELFPAY ==
[2021-11-07 09:28] LABS: Hematocrit 31.5 % (37-47); Hemoglobin 9.9 g/dL (12.0-15.0); Mean Corp Hgb Conc 31.4 g/dL (32-36); Mean Corpuscular Hgb 29.8 pg (27.0-32.0); Mean Corpuscular Volume 94.9 fL (81-99); Mean Platelet Vol. 10.3 fl (6.2-12.0); Platelet Count 357 K/mm3 (150-450); RBC Distribution Width CV 14.2 % (11.6-14.6); RBC Distribution Width SD 49.9 fl (35.1-43.9); Red Blood Count 3.32 M/mm3 (4.2-5.4); White Blood Count 9.7 K/mm3 (4.4-11.0)
[2021-11-07 09:45] LABS: Anion Gap 6 (5-15); BUN 7 mg/dL (7-18); BUN/Creat Ratio 17.7 RATIO (10-20); Calcium,Total 8.8 mg/dL (8.5-10.1); Chloride 102 mmol/L (98-107); EST Glomerular Filtration Rate 168 mL/min (>60); Est Glom Filt Rate - Afr Amer 203 mL/min (>60); Glucose 113 mg/dL (74-106); Potassium 3.4 mmol/L (3.5-5.1); Sodium Level 137 mmol/L (136-145)
== END | disposition home or self-care (01) ==
LOC: OLS.WHLTCC 07:45
PROVIDERS: PCP Family Medicine; Visit Provider Family Medicine
DX: S06.360D Traumatic hemorrhage of cerebrum, unspecified, without loss of consciousness, subsequent encounter (principal); S22.42XD Multiple fractures of ribs, left side, subsequent encounter for fracture with routine healing; F41.9 Anxiety disorder, unspecified; D72.829 Elevated white blood cell count, unspecified
CPT/HCPCS: 36415; 80048; 85027

== ENCOUNTER → 2021-11-09 | Outpatient (REF) | payer SELFPAY ==
[2021-11-09 09:24] LABS: Bacteria 0 SEEN /hpf (None Seen); Mucous, Urine 0 SEEN /hpf (<or=2+); Red Blood Cells-Urine 0 SEEN /hpf (0-5)
[2021-11-09 09:36] LABS: Color, Urine Yellow (Yellow); Glucose, Dipstick Normal (Normal); Ketone-Dipstick Negative (Negative); Leukocyte Esterase-Dipstick 500 /ul (Negative); Nitrite-Dipstick Positive (Negative); Occult Blood-Urine 10 /ul (Negative); Protein-Dipstick Negative (Negative); Urine Bilirubin Dipstick Negative (Negative); Urine Clarity Clear (Clear); Urine Urobilinogen Normal (Normal)
[2021-11-09 09:49] LABS: Squamous Epithelial Cells - UA 0-5 SEEN /hpf (5-10); White Blood Cells 0-5 SEEN /hpf (0-5)
== END | disposition home or self-care (01) ==
LOC: OLS.WHLTCC 05:00
PROVIDERS: PCP Family Medicine; Visit Provider Family Medicine
DX: R30.0 Dysuria (principal); S06.360D Traumatic hemorrhage of cerebrum, unspecified, without loss of consciousness, subsequent encounter; S22.42XD Multiple fractures of ribs, left side, subsequent encounter for fracture with routine healing; S06.5X0D Traumatic subdural hemorrhage without loss of consciousness, subsequent encounter

== ENCOUNTER → 2021-11-14 | Outpatient (REF) | payer SELFPAY ==
[2021-11-14 11:01] LABS: Hematocrit 37.8 % (37-47); Hemoglobin 11.6 g/dL (12.0-15.0); Mean Corp Hgb Conc 30.7 g/dL (32-36); Mean Corpuscular Hgb 29.5 pg (27.0-32.0); Mean Corpuscular Volume 96.2 fL (81-99); Mean Platelet Vol. 11.8 fl (6.2-12.0); Platelet Count 473 K/mm3 (150-450); RBC Distribution Width CV 14.5 % (11.6-14.6); RBC Distribution Width SD 51.3 fl (35.1-43.9); Red Blood Count 3.93 M/mm3 (4.2-5.4); White Blood Count 10.6 K/mm3 (4.4-11.0)
[2021-11-14 11:48] LABS: Anion Gap 9 (5-15); BUN 6 mg/dL (7-18); BUN/Creat Ratio 11.9 RATIO (10-20); Calcium,Total 9.7 mg/dL (8.5-10.1); Chloride 101 mmol/L (98-107); EST Glomerular Filtration Rate 126 mL/min (>60); Est Glom Filt Rate - Afr Amer 153 mL/min (>60); Glucose 94 mg/dL (74-106); Potassium 4.1 mmol/L (3.5-5.1); Sodium Level 136 mmol/L (136-145)
== END | disposition home or self-care (01) ==
LOC: OLS.WHLTCC 04:00
PROVIDERS: PCP Family Medicine; Visit Provider Family Medicine
DX: S06.360D Traumatic hemorrhage of cerebrum, unspecified, without loss of consciousness, subsequent encounter (principal); S22.42XD Multiple fractures of ribs, left side, subsequent encounter for fracture with routine healing; F41.9 Anxiety disorder, unspecified; D72.829 Elevated white blood cell count, unspecified
CPT/HCPCS: 36415; 80048; 85027

== ENCOUNTER → 2021-11-21 | Outpatient (REF) | payer MEDICARE, SELFPAY ==
[2021-11-21 08:00] LABS: Hematocrit 33.6 % (37-47); Hemoglobin 10.6 g/dL (12.0-15.0); Mean Corp Hgb Conc 31.5 g/dL (32-36); Mean Corpuscular Volume 91.8 fL (81-99); Mean Platelet Vol. 11.6 fl (6.2-12.0); Platelet Count 382 K/mm3 (150-450); RBC Distribution Width CV 14.2 % (11.6-14.6); RBC Distribution Width SD 48.1 fl (35.1-43.9); Red Blood Count 3.66 M/mm3 (4.2-5.4); White Blood Count 9.2 K/mm3 (4.4-11.0)
[2021-11-21 08:26] LABS: Anion Gap 4 (5-15); BUN 6 mg/dL (7-18); BUN/Creat Ratio 14.3 RATIO (10-20); Calcium,Total 9.2 mg/dL (8.5-10.1); Chloride 102 mmol/L (98-107); Creatinine, Serum 0.42 mg/dL (0.55-1.02); EST Glomerular Filtration Rate 156 mL/min (>60); Est Glom Filt Rate - Afr Amer 189 mL/min (>60); Glucose 103 mg/dL (74-106); Potassium 3.2 mmol/L (3.5-5.1); Sodium Level 136 mmol/L (136-145)
== END ==
LOC: OLS.WHLTCC 05:00
PROVIDERS: PCP Family Medicine; Visit Provider Family Medicine
DX: S06.360D Traumatic hemorrhage of cerebrum, unspecified, without loss of consciousness, subsequent encounter (principal); S22.42XD Multiple fractures of ribs, left side, subsequent encounter for fracture with routine healing; F41.9 Anxiety disorder, unspecified; D72.829 Elevated white blood cell count, unspecified
CPT/HCPCS: 36415; 80048; 85027

== ENCOUNTER → 2021-11-28 | Outpatient (REF) | payer MEDICARE, BC, SELFPAY ==
[2021-11-28 09:03] LABS: Hematocrit 35.2 % (37-47); Hemoglobin 11.4 g/dL (12.0-15.0); Mean Corp Hgb Conc 32.4 g/dL (32-36); Mean Corpuscular Hgb 28.7 pg (27.0-32.0); Mean Corpuscular Volume 88.7 fL (81-99); Mean Platelet Vol. 11.8 fl (6.2-12.0); Platelet Count 339 K/mm3 (150-450); RBC Distribution Width CV 13.9 % (11.6-14.6); RBC Distribution Width SD 45.2 fl (35.1-43.9); Red Blood Count 3.97 M/mm3 (4.2-5.4); White Blood Count 9.7 K/mm3 (4.4-11.0)
[2021-11-28 09:52] LABS: Anion Gap 9 (5-15); BUN 5 mg/dL (7-18); BUN/Creat Ratio 10.9 RATIO (10-20); Calcium,Total 9.1 mg/dL (8.5-10.1); Chloride 100 mmol/L (98-107); Creatinine, Serum 0.46 mg/dL (0.55-1.02); EST Glomerular Filtration Rate 141 mL/min (>60); Est Glom Filt Rate - Afr Amer 171 mL/min (>60); Glucose 81 mg/dL (74-106); Potassium 2.7 mmol/L (3.5-5.1); Sodium Level 134 mmol/L (136-145)
== END ==
LOC: OLS.WHLTCC 04:00
PROVIDERS: PCP Family Medicine; Visit Provider Family Medicine
DX: S06.360D Traumatic hemorrhage of cerebrum, unspecified, without loss of consciousness, subsequent encounter (principal); S22.42XD Multiple fractures of ribs, left side, subsequent encounter for fracture with routine healing; F41.9 Anxiety disorder, unspecified; D72.829 Elevated white blood cell count, unspecified
CPT/HCPCS: 36415; 80048; 85027

== ENCOUNTER → 2021-12-01 | Outpatient (REF) | payer MEDICARE, BC, SELFPAY ==
[2021-12-01 09:42] LABS: Anion Gap 6 (5-15); BUN 8 mg/dL (7-18); BUN/Creat Ratio 24.2 RATIO (10-20); Chloride 101 mmol/L (98-107); Creatinine, Serum 0.33 mg/dL (0.55-1.02); EST Glomerular Filtration Rate 206 mL/min (>60); Est Glom Filt Rate - Afr Amer 249 mL/min (>60); Glucose 107 mg/dL (74-106); Potassium 3.6 mmol/L (3.5-5.1); Sodium Level 136 mmol/L (136-145)
== END ==
LOC: OLS.WHLTCC 05:00
PROVIDERS: PCP Family Medicine; Visit Provider Family Medicine
DX: E87.6 Hypokalemia (principal); S06.360D Traumatic hemorrhage of cerebrum, unspecified, without loss of consciousness, subsequent encounter; S22.42XD Multiple fractures of ribs, left side, subsequent encounter for fracture with routine healing; S06.5X0D Traumatic subdural hemorrhage without loss of consciousness, subsequent encounter
CPT/HCPCS: 36415; 80048

== ENCOUNTER → 2021-12-03 | Outpatient (REF) | payer MEDICARE, BC, SELFPAY ==
[2021-12-04 08:20] LABS: Color, Urine Straw (Yellow); Glucose, Dipstick Normal (Normal); Ketone-Dipstick 5 mg/dl (Negative); Leukocyte Esterase-Dipstick 500 /ul (Negative); Nitrite-Dipstick Positive (Negative); Occult Blood-Urine 50 /ul (Negative); Protein-Dipstick 30 mg/dl (Negative); Urine Bilirubin Dipstick Negative (Negative); Urine Clarity Cloudy (Clear); Urine Urobilinogen Normal (Normal)
== END ==
LOC: OLS.WHLTCC 17:00
PROVIDERS: PCP Family Medicine; Referring Provider Family Medicine; Visit Provider Family Medicine
DX: N39.0 Urinary tract infection, site not specified (principal); S06.360D Traumatic hemorrhage of cerebrum, unspecified, without loss of consciousness, subsequent encounter; S22.42XD Multiple fractures of ribs, left side, subsequent encounter for fracture with routine healing; S06.5X0D Traumatic subdural hemorrhage without loss of consciousness, subsequent encounter
CPT/HCPCS: 81002; 87077; 87086; 87088; 87186

== ENCOUNTER → 2021-12-05 | Outpatient (REF) | payer MEDICARE, BC, SELFPAY ==
[2021-12-05 10:28] LABS: Hematocrit 33.7 % (37-47); Hemoglobin 10.8 g/dL (12.0-15.0); Mean Corpuscular Hgb 28.9 pg (27.0-32.0); Mean Corpuscular Volume 90.1 fL (81-99); Platelet Count 360 K/mm3 (150-450); RBC Distribution Width CV 14.6 % (11.6-14.6); RBC Distribution Width SD 48.7 fl (35.1-43.9); Red Blood Count 3.74 M/mm3 (4.2-5.4)
[2021-12-05 10:42] LABS: Anion Gap 8 (5-15); BUN 10 mg/dL (7-18); BUN/Creat Ratio 20.2 RATIO (10-20); Calcium,Total 9.9 mg/dL (8.5-10.1); Chloride 104 mmol/L (98-107); Creatinine, Serum 0.49 mg/dL (0.55-1.02); EST Glomerular Filtration Rate 130 mL/min (>60); Est Glom Filt Rate - Afr Amer 157 mL/min (>60); Glucose 100 mg/dL (74-106); Potassium 3.8 mmol/L (3.5-5.1); Sodium Level 138 mmol/L (136-145)
== END ==
LOC: OLS.WHLTCC 05:00
PROVIDERS: PCP Family Medicine; Visit Provider Family Medicine
DX: S06.360D Traumatic hemorrhage of cerebrum, unspecified, without loss of consciousness, subsequent encounter (principal); S22.42XD Multiple fractures of ribs, left side, subsequent encounter for fracture with routine healing; F41.9 Anxiety disorder, unspecified; D72.829 Elevated white blood cell count, unspecified
CPT/HCPCS: 36415; 80048; 85027

== ENCOUNTER → 2021-12-12 | Outpatient (REF) | payer MEDICARE, BC, SELFPAY ==
[2021-12-12 09:52] LABS: Hematocrit 38.8 % (37-47); Hemoglobin 12.3 g/dL (12.0-15.0); Mean Corp Hgb Conc 31.7 g/dL (32-36); Mean Corpuscular Hgb 27.8 pg (27.0-32.0); Mean Corpuscular Volume 87.6 fL (81-99); Mean Platelet Vol. 12.8 fl (6.2-12.0); Platelet Count 354 K/mm3 (150-450); RBC Distribution Width CV 14.9 % (11.6-14.6); RBC Distribution Width SD 48.2 fl (35.1-43.9); Red Blood Count 4.43 M/mm3 (4.2-5.4); White Blood Count 8.8 K/mm3 (4.4-11.0)
[2021-12-12 10:03] LABS: Anion Gap 7 (5-15); BUN 10 mg/dL (7-18); BUN/Creat Ratio 18.6 RATIO (10-20); Calcium,Total 9.8 mg/dL (8.5-10.1); Chloride 106 mmol/L (98-107); Creatinine, Serum 0.54 mg/dL (0.55-1.02); EST Glomerular Filtration Rate 117 mL/min (>60); Est Glom Filt Rate - Afr Amer 142 mL/min (>60); Glucose 85 mg/dL (74-106); Potassium 3.5 mmol/L (3.5-5.1); Sodium Level 140 mmol/L (136-145)
== END ==
LOC: OLS.WHLTCC 05:00
PROVIDERS: PCP Family Medicine; Visit Provider Family Medicine
DX: D72.829 Elevated white blood cell count, unspecified (principal); S06.360D Traumatic hemorrhage of cerebrum, unspecified, without loss of consciousness, subsequent encounter; S22.42XD Multiple fractures of ribs, left side, subsequent encounter for fracture with routine healing; F41.9 Anxiety disorder, unspecified
CPT/HCPCS: 36415; 80048; 85027

== ENCOUNTER → 2021-12-18 | Outpatient (REF) | payer MEDICARE, BC, SELFPAY ==
[2021-12-18 07:30] LABS: Mucous, Urine 0 SEEN /hpf (<or=2+); Red Blood Cells-Urine 0 SEEN /hpf (0-5); Squamous Epithelial Cells - UA 0 SEEN /hpf (5-10)
[2021-12-18 08:24] LABS: Color, Urine Yellow (Yellow); Glucose, Dipstick Normal (Normal); Ketone-Dipstick Negative (Negative); Leukocyte Esterase-Dipstick 500 /ul (Negative); Nitrite-Dipstick Negative (Negative); Occult Blood-Urine 10 /ul (Negative); Protein-Dipstick Negative (Negative); Urine Bilirubin Dipstick Negative (Negative); Urine Clarity Clear (Clear); Urine Urobilinogen Normal (Normal)
[2021-12-18 08:36] LABS: Bacteria 2+ /hpf (None Seen); White Blood Cells 10-25 SEEN /hpf (0-5)
== END ==
LOC: OLS.WHLTCC 03:00
PROVIDERS: PCP Family Medicine; Referring Provider Family Medicine; Visit Provider Family Medicine
DX: N39.0 Urinary tract infection, site not specified (principal); S22.42XD Multiple fractures of ribs, left side, subsequent encounter for fracture with routine healing; S06.5X0D Traumatic subdural hemorrhage without loss of consciousness, subsequent encounter
CPT/HCPCS: 81001; 87077; 87086; 87088; 87186

== ENCOUNTER → 2021-12-20 | Outpatient (REF) | payer MEDICARE, BC, SELFPAY ==
[2021-12-20 09:23] LABS: Hematocrit 33.9 % (37-47); Hemoglobin 10.6 g/dL (12.0-15.0); Mean Corp Hgb Conc 31.3 g/dL (32-36); Mean Corpuscular Hgb 27.8 pg (27.0-32.0); Platelet Count 286 K/mm3 (150-450); RBC Distribution Width CV 15.8 % (11.6-14.6); RBC Distribution Width SD 51.5 fl (35.1-43.9); Red Blood Count 3.81 M/mm3 (4.2-5.4); White Blood Count 7.1 K/mm3 (4.4-11.0)
[2021-12-20 09:49] LABS: Anion Gap 7 (5-15); BUN 11 mg/dL (7-18); BUN/Creat Ratio 19.1 RATIO (10-20); Calcium,Total 8.9 mg/dL (8.5-10.1); Chloride 108 mmol/L (98-107); Creatinine, Serum 0.58 mg/dL (0.55-1.02); EST Glomerular Filtration Rate 109 mL/min (>60); Est Glom Filt Rate - Afr Amer 132 mL/min (>60); Glucose 91 mg/dL (74-106); Potassium 3.5 mmol/L (3.5-5.1); Sodium Level 142 mmol/L (136-145)
== END ==
LOC: OLS.WHLTCC 05:00
PROVIDERS: PCP Family Medicine; Visit Provider Family Medicine
DX: S06.360D Traumatic hemorrhage of cerebrum, unspecified, without loss of consciousness, subsequent encounter (principal); S22.42XD Multiple fractures of ribs, left side, subsequent encounter for fracture with routine healing; F41.9 Anxiety disorder, unspecified; D72.829 Elevated white blood cell count, unspecified
CPT/HCPCS: 36415; 80048; 85027

== ENCOUNTER → 2021-12-26 | Outpatient (REF) | payer MEDICARE, BC, SELFPAY ==
[2021-12-26 11:08] LABS: Hematocrit 40.5 % (37-47); Hemoglobin 12.5 g/dL (12.0-15.0); Mean Corp Hgb Conc 30.9 g/dL (32-36); Mean Corpuscular Hgb 29.9 pg (27.0-32.0); Mean Corpuscular Volume 96.9 fL (81-99); Mean Platelet Vol. 12.1 fl (6.2-12.0); Platelet Count 286 K/mm3 (150-450); RBC Distribution Width CV 18.4 % (11.6-14.6); RBC Distribution Width SD 58.4 fl (35.1-43.9); Red Blood Count 4.18 M/mm3 (4.2-5.4)
[2021-12-26 11:34] LABS: Anion Gap 9 (5-15); BUN 10 mg/dL (7-18); BUN/Creat Ratio 18.7 RATIO (10-20); Calcium,Total 9.8 mg/dL (8.5-10.1); Chloride 104 mmol/L (98-107); Creatinine, Serum 0.54 mg/dL (0.55-1.02); EST Glomerular Filtration Rate 118 mL/min (>60); Est Glom Filt Rate - Afr Amer 143 mL/min (>60); Glucose 77 mg/dL (74-106); Potassium 4.1 mmol/L (3.5-5.1); Sodium Level 140 mmol/L (136-145)
== END ==
LOC: OLS.WHLTCC 05:00
PROVIDERS: PCP Family Medicine; Visit Provider Family Medicine
DX: S06.360D Traumatic hemorrhage of cerebrum, unspecified, without loss of consciousness, subsequent encounter (principal); S22.42XD Multiple fractures of ribs, left side, subsequent encounter for fracture with routine healing; F41.9 Anxiety disorder, unspecified; D72.829 Elevated white blood cell count, unspecified
CPT/HCPCS: 36415; 80048; 85027

== ENCOUNTER → 2022-01-02 | Outpatient (REF) | payer MEDICARE, BC, SELFPAY ==
[2022-01-02 09:06] LABS: Hematocrit 36.8 % (37-47); Hemoglobin 11.5 g/dL (12.0-15.0); Mean Corp Hgb Conc 31.3 g/dL (32-36); Mean Corpuscular Hgb 28.3 pg (27.0-32.0); Mean Corpuscular Volume 90.4 fL (81-99); Platelet Count 274 K/mm3 (150-450); RBC Distribution Width CV 17.2 % (11.6-14.6); RBC Distribution Width SD 57.1 fl (35.1-43.9); Red Blood Count 4.07 M/mm3 (4.2-5.4); White Blood Count 6.8 K/mm3 (4.4-11.0)
[2022-01-02 09:24] LABS: Anion Gap 7 (5-15); BUN 9 mg/dL (7-18); BUN/Creat Ratio 15.7 RATIO (10-20); Calcium,Total 9.7 mg/dL (8.5-10.1); Chloride 107 mmol/L (98-107); Creatinine, Serum 0.58 mg/dL (0.55-1.02); EST Glomerular Filtration Rate 109 mL/min (>60); Est Glom Filt Rate - Afr Amer 132 mL/min (>60); Glucose 89 mg/dL (74-106); Sodium Level 141 mmol/L (136-145)
== END ==
LOC: OLS.WHLTCC 05:00
PROVIDERS: PCP Family Medicine; Visit Provider Family Medicine
DX: S06.360D Traumatic hemorrhage of cerebrum, unspecified, without loss of consciousness, subsequent encounter (principal); S22.42XD Multiple fractures of ribs, left side, subsequent encounter for fracture with routine healing; F41.9 Anxiety disorder, unspecified; D72.829 Elevated white blood cell count, unspecified
CPT/HCPCS: 36415; 80048; 85027

== ENCOUNTER → 2022-01-09 | Outpatient (REF) | payer MEDICARE, BC, SELFPAY ==
[2022-01-09 08:51] LABS: Hemoglobin 10.6 g/dL (12.0-15.0); Mean Corp Hgb Conc 31.2 g/dL (32-36); Mean Corpuscular Hgb 27.5 pg (27.0-32.0); Mean Corpuscular Volume 88.1 fL (81-99); Mean Platelet Vol. 13.1 fl (6.2-12.0); Platelet Count 220 K/mm3 (150-450); RBC Distribution Width CV 18.4 % (11.6-14.6); RBC Distribution Width SD 59.2 fl (35.1-43.9); Red Blood Count 3.86 M/mm3 (4.2-5.4); White Blood Count 14.6 K/mm3 (4.4-11.0)
[2022-01-09 09:03] LABS: Anion Gap 6 (5-15); BUN 13 mg/dL (7-18); BUN/Creat Ratio 24.5 RATIO (10-20); Calcium,Total 8.6 mg/dL (8.5-10.1); Chloride 106 mmol/L (98-107); Creatinine, Serum 0.53 mg/dL (0.55-1.02); EST Glomerular Filtration Rate 119 mL/min (>60); Est Glom Filt Rate - Afr Amer 144 mL/min (>60); Glucose 91 mg/dL (74-106); Potassium 4.3 mmol/L (3.5-5.1); Sodium Level 140 mmol/L (136-145)
== END ==
LOC: OLS.WHLTCC 05:00
PROVIDERS: PCP Family Medicine; Visit Provider Family Medicine
DX: D72.829 Elevated white blood cell count, unspecified (principal); S06.360D Traumatic hemorrhage of cerebrum, unspecified, without loss of consciousness, subsequent encounter; S22.42XD Multiple fractures of ribs, left side, subsequent encounter for fracture with routine healing; F41.9 Anxiety disorder, unspecified
CPT/HCPCS: 36415; 80048; 85027

== ENCOUNTER 2022-01-10 11:43 | Emergency (ER) | payer MEDICARE, BC, SELFPAY ==
[2022-01-10 11:44] VITALS: BP 167/96; PULSE 75; RESP 16; TEMP 36.7; O2SAT 97; BMI 22.7
--- NOTE | 2022-01-10 12:01 | CT_ITS ---
STUDY: CT BRAIN WITHOUT CONTRAST REASON FOR EXAM: Female, 76 years old. Headache after trauma RADIATION DOSAGE (If Supplied By Facility): CTDIvol = ( 44.99 ) mGy, DLP = ( 900.16 ) mGycm TECHNIQUE: Transaxial CT imaging of the brain was performed without administration of intravenous contrast material. Individualized dose optimization techniques were used for this CT. COMPARISON: 10/06/2021 FINDINGS: Study is limited due to suboptimal positioning Normal soft tissue structures. Normal calvarium. There is mild cerebral atrophy with widening of the extra-axial spaces and ventricular dilatation. There are areas of decreased attenuation within the white matter tracts of the supratentorial brain, consistent with microvascular disease changes. Normal basal ganglia and thalami. Normal brainstem. Normal cerebellum. There is no intracranial hemorrhage. There are no findings of an acute ischemic infarction. Normal visualized paranasal sinuses. CT/Brain/Head without Contrast IMPRESSION: Chronic involutional changes of the brain. No acute hemorrhage No skull fracture or scalp hematoma Electronically Signed: Brody Licona MD at 12:35 EDT ,
--- NOTE | 2022-01-10 12:05 | EDS_ITS ---
HPI HPI - Fall History of Present Illness Chief Complaint: Fall Informant: patient Occured/Mechanism Occurred: Today Mechanism/Context: Yes same level fall and Yes trip Narrative: Patient in group home, getting off of toilet and got tired of waiting for campus administrative assistant to help her so she got off to get her walker and get to her wheelchair herself and tripped and fell hitting the back of her head. Pain/Injury Pain Location: head (posteriorly) Quality of Pain: - (sore) Current Severity: Moderate Maximum Severity: Moderate Associated Symptoms Associated Symptoms: Negative for Parasthesias, Weakness, Loss of consciousness or Amnesia Narrative Narrative: No loss of consciousness. Denies any other injury. States she has been having trouble walking but that is why she is in rehab, this was due to a prior fall and cerebral hemorrhage. Sustained a laceration to the back of her head from this fall, hit a blunt surface/floor. She is on no antiplatelet or anticoagulant medications. [facility] Medical History Alcohol abuse Alcohol intoxication Anemia Anxiety Arthritis Back problem Benzodiazepine dependence Bladder infection Bone fracture Breast cancer Breast cancer Breast lump BROKEN ARM REPAIR Calcium deficiency Cancer Debility Depression Depression Fall Frequent falls GERD (gastroesophageal reflux disease) Glaucoma High cholesterol High triglycerides History of recent fall HTN (hypertension) Hypertension Hypokalemia Hypomagnesemia Hyponatremia Hypoparathyroidism after procedure Hypothyroidism Hypothyroidism Hypothyroidism (acquired) Melanoma Multiple rib fractures Opioid dependence Pancreatitis Parathyroid abnormality Pneumonia Postsurgical hypoparathyroidism Postsurgical hypothyroidism Rheumatoid arthritis Right arm fracture Scalp laceration Skin cancer Subdural hematoma Tobacco abuse UTI (urinary tract infection) Vitamin D deficiency Home Medications buspirone 5 mg tablet 5 tablet PO DAILY MOOD 08/01/20 [History Last Taken 03/07/21] clonazepam 1 mg tablet 1 mg PO DAILY PRN Anxiety 08/01/20 [History Last Taken 03/08/21] folic acid-vit B6-vit B12 2.5 mg-25 mg-1 mg tablet 1 ea PO DAILY SUPPLEMENT 08/01/20 [History Last Taken 03/08/21] indapamide 1.25 mg tablet 1.25 mg PO DAILY HEART 08/01/20 [History Last Taken 03/08/21] letrozole 2.5 mg tablet 2.5 mg PO DAILY 08/01/20 [History Last Taken 03/08/21] nortriptyline 50 mg capsule 50 mg PO QHS 08/01/20 [History Last Taken 03/07/21] potassium chloride 20 mEq tablet,extended release(part/cryst) 20 meq PO BID SUPPLEMENT 08/01/20 [History Last Taken 03/08/21] valacyclovir 1 gram tablet 1,000 mg PO DAILY SHINGLES 08/01/20 [History Last Taken 03/08/21] famotidine 20 mg tablet (Pepcid) 20 mg PO BID GERD 03/08/21 [History Last Taken 03/07/21] lisinopril 10 mg tablet 10 mg PO DAILY BP 03/08/21 [History Last Taken 03/08/21] pregabalin 50 mg capsule 50 mg PO BID PAIN 03/08/21 [History Last Taken 03/08/21] cyclobenzaprine 5 mg tablet 5 mg PO TID PRN PRN Muscle Spasm #10 tabs 03/09/21 [Rx Last Taken Unknown] dexamethasone sodium phosphate 0.1 % eye drops 1 drp ophthalmic (eye) BID glaucoma 03/09/21 [History Last Taken 03/08/21 06:00] oxycodone 5 mg tablet 5 mg PO Q6H PRN pain 3 days #12 tabs 03/09/21 [Rx Last Taken Unknown] meclizine 25 mg tablet 25 mg PO Q8H PRN PRN Dizziness #20 tabs 05/21/21 [Rx Last Taken Unknown] hydrocodone 10 mg-acetaminophen 325 mg tablet 1 tab PO Q4H PRN PRN Pain 06/11/21 [History Last Taken Unknown] calcitriol 0.5 mcg capsule 0.5 mcg PO DAILY #90 caps 08/07/21 [Rx Last Taken Unknown] calcium carb,cit ER 600 mg-vit D3 12.5 mcg (500 unit) tablet,ext.rel (Citracal- D3 Slow Release) 1 tab PO DAILY #1 TAB 08/07/21 [Rx Last Taken Unknown] levothyroxine 125 mcg tablet 125 mcg PO DAILY #90 tabs 08/28/21 [Rx Last Taken Unknown] Allergy/AdvReac Type Severity Reaction Status Date / Time bacitracin Allergy Unknown Unknown Verified 10/06/21 21:18 [From Neosporin ([id number])] neomycin Allergy Unknown Unknown Verified 10/06/21 21:18 [From Neosporin ([id number])] polymyxin B Allergy Unknown Unknown Verified 10/06/21 21:18 [From Neosporin ([id number])] Antihistamines - Alkylamine Allergy PT UNSURE Verified 01/10/22 11:49 OF REACTION diphenhydramine Allergy PT UNSURE Verified 01/10/22 11:49 [From Benadryl] OF REACTION Family History Unknown Thyroid disorder Cancer High cholesterol Arthritis Mother Cancer Diabetes Father , Father at the age of 50 from successful suicide attempt. Suicidal intent Other Alcohol abuse Anxiety Depression Heart disease Hypertension Mental disorder Parkinson disease Psychiatric care Surgical History H/O mastectomy H/O thyroidectomy Status post glaucoma surgery Social History household members: none Smoking Status: Former smoker second hand exposure: Yes alcohol intake: never substance use type: does not use ROS ROS ED Constitutional Constitutional ED: Denies chills or fever(s) Eyes Eyes: Denies change in vision or diplopia ENT ENT ED: Denies ear pain, epistaxis, facial pain or rhinorrhea Cardiovascular Cardiovascular: Denies chest pain or palpitations Respiratory/Chest Respiratory/Chest: Denies cough or dyspnea Gastrointestinal Gastrointestinal: Denies abdominal pain, diarrhea, melena, nausea or vomiting Genitourinary Genitourinary ED: Denies dysuria or hematuria Musculoskeletal Musculoskeletal: Denies back pain, extremity pain or neck pain Integumentary Reports laceration; Denies abscess, Abrasions or rash Neurologic Neurologic: Reports headache(s) and weakness; Denies confusion or paresthesias EXAM Physical Exam Const Vital Signs: 01/10/22 11:44 01/10/22 11:50 Temperature 98.1 F Temperature Source Oral Pulse Rate 75 Respiratory Rate 16 Respiratory Effort Normal Respiratory Pattern Normal Blood Pressure 167/96 H Blood Pressure Mean 119 Pulse Ox 97 Oxygen Delivery Method Room Air Positive well nourished and well developed General Appearance ED: well developed and NAD HEENT Reports TM's clear and nasal mucous membranes and turbinates normal HEENT Narrative: Left occipital hematoma/tenderness without crepitance or depression, with associated 1.5 cm curved full-thickness laceration with minor bleeding. No other signs of HEENT injury/trauma. No neck tenderness. Face and Sinus: Negative for facial tenderness Tympanic Membrane ED: Yes TM's clear Eyes PERRL and EOMs intact bilaterally Visual Acuity: other Other Details: no entrapment or pain with extraocular movements Neck full ROM and supple General: Negative for tenderness Chest Wall inspection of chest normal and palpation of chest normal Chest: symmetrical chest wall rise; Negative for crepitus or tenderness Resp normal respiratory effort and clear to auscultation bilaterally Percussion: other equal BS bilat Cardio no murmurs Rate: regular rate Rhythm: regular rhythm GI normal to inspection, nondistended, normoactive bowel sounds, soft to palpation and non-tender Back/Spine normal ROM Cervical Spine: Negative for cervical spine tenderness Thoracic Spine / Upper Back: Negative for thoracic spinal tenderness Lumbar Spine / Lower Back: Negative for lumbar spinal tenderness Extremity normal to inspection and full ROM General Extremety ED: Negative for tenderness Neuro oriented x3, CN's II-XII intact bilaterally, moves all extremities, no focal motor deficits and no sensory deficits noted Neuro Narrative: Neurologically intact. She has weakness of both legs that she states is chronic and stable, but she can move them symmetrically. Dyan Coma Scale: document GCS findings Spontaneous Obeys Commands Oriented 15 Sensorium / Orientation: awake and alert Psych mental status grossly normal and thought process normal Skin Skin Narrative: Left posterior scalp laceration see above. No other signs of acute injury. Lesions: no lesions Rashes: no rashes MDM MDM MDM Narrative Medical decision making narrative: CT of the head was obtained and shows no acute skull fracture or intracranial traumatic abnormality. Patient's laceration was repaired with 2 skin lynne see the procedure note. She will be discharged back to the group home, she is comfortable with this plan and doing well. She was given Tylenol for her headache and helped. Radiography Diagnostic Testing: Clinical Impression(s) from Imaging Studies Brain CT 01/10/22 12:01 IMPRESSION: Chronic involutional changes of the brain. No acute hemorrhage No skull fracture or scalp hematoma Electronically Signed: Brody Licona MD at 12:35 EDT Reading Location ID and State: [facility] / [place] , Service support , Procedures Lacerations L occipital scalp: Length: 1.5 cm Depth: Sub Q Shape: curved Prep: Sterile Conditions and Chlorhexadine Laceration repair: Irrigated, Lidocaine with epi (topical LET only) and Local Number of Sutures/[place]: 2 Suture Information: - (skin lynne) Comment: good skin edge apposition; connie'd well, no complications Discharge Plan Triage Chief Complaint: Fall ED Provider: Chance Geronimo Dx/Rx/DC Orders Clinical Impression: Closed head injury without loss of consciousness, Occipital scalp laceration Instructions: ED Laceration Scalp Stitches or Lynne Prescriptions: No Action valacyclovir 1 gram tablet 1,000 mg PO DAILY Label Comments: TAKE 1 TABLET BY MOUTH THREE TIMES A DAY letrozole 2.5 mg tablet 2.5 mg PO DAILY Label Comments: TAKE 1 TABLET BY MOUTH EVERY DAY indapamide 1.25 mg tablet 1.25 mg PO DAILY Label Comments: TAKE 1 TABLET BY MOUTH EVERY DAY IN THE MORNING potassium chloride 20 mEq tablet,ER particles/crystals 20 meq PO BID Label Comments: TAKE 1 TABLET BY MOUTH EVERY OTHER DAY folic acid-vit B6-vit B12 2.5-25-1 mg tablet 1 ea PO DAILY Label Comments: TAKE 1 TABLET BY MOUTH EVERY DAY buspirone 5 mg tablet 5 tablet PO DAILY nortriptyline 50 mg capsule 50 mg PO QHS clonazepam 1 mg tablet 1 mg PO DAILY PRN (Reason: Anxiety) Label Comments: 1 TABLET BY MOUTH 5 TIMES DAILY NEEDED FOR ANXIETY calcium carb and citrate-vitD3 [Citracal-D3 Slow Release] 600 mg-12.5 mcg (500 unit) tablet extended release 1 tab PO DAILY Qty: 1 0RF calcitriol 0.5 mcg capsule 0.5 mcg PO DAILY Qty: 90 3RF Rx Instructions: please discontinue any rx for calcitriol by an other doctors lisinopril 10 mg tablet 10 mg PO DAILY pregabalin 50 mg capsule 50 mg PO BID famotidine [Pepcid] 20 mg tablet 20 mg PO BID dexamethasone sodium phosphate 0.1 % drops 1 drp ophthalmic (eye) BID Rx Instructions: R eye only oxycodone 5 mg Tablet 5 mg PO Q6H PRN (Reason: pain) 3 Days Qty: 12 0RF cyclobenzaprine 5 mg Tablet 5 mg PO TID PRN PRN (Reason: Muscle Spasm) Qty: 10 0RF meclizine [meclizine] 25 MG tablet 25 mg PO Q8H PRN PRN (Reason: Dizziness) Qty: 20 0RF hydrocodone-acetaminophen 10-325 mg tablet 1 tab PO Q4H PRN PRN (Reason: Pain) levothyroxine 125 mcg tablet 125 mcg PO DAILY Qty: 90 3RF Rx Instructions: Please discontinue any levothyroxine orders from any other doctors Primary Care Provider: Erica Richardson Referrals: Erica Richardson DO [Primary Care Provider] - 5 Days for suture removal Disposition Disposition: Home, Self Care
[2022-01-10] MEDS: Acetaminophen 325 MG Tablet 650 MG PO (12:36)
[2022-01-10] MEDS: Lidocaine/Epi/Tetracaine 50 ML 1 APPLIC TOPICAL (12:37)
[2022-01-10 13:39] VITALS: BP 149/81; PULSE 83; RESP 19; O2SAT 95
== END 2022-01-10 15:07 | disposition home or self-care (01) ==
PROVIDERS: Emergency Provider Emergency Medicine; PCP Family Medicine; Visit Provider Emergency Medicine
DX: S01.01XA Laceration without foreign body of scalp, initial encounter (principal); I10 Essential (primary) hypertension; E78.00 Pure hypercholesterolemia, unspecified; W18.30XA Fall on same level, unspecified, initial encounter; Z87.891 Personal history of nicotine dependence; S09.90XA Unspecified injury of head, initial encounter; E03.9 Hypothyroidism, unspecified
CPT/HCPCS: 12001; 70450; 99284

== ENCOUNTER → 2022-01-16 | Outpatient (REF) | payer MEDICARE, BC, SELFPAY ==
[2022-01-16 10:01] LABS: Hematocrit 34.5 % (37-47); Hemoglobin 10.9 g/dL (12.0-15.0); Mean Corp Hgb Conc 31.6 g/dL (32-36); Mean Corpuscular Hgb 27.6 pg (27.0-32.0); Mean Corpuscular Volume 87.3 fL (81-99); Mean Platelet Vol. 12.9 fl (6.2-12.0); Platelet Count 286 K/mm3 (150-450); RBC Distribution Width CV 18.9 % (11.6-14.6); RBC Distribution Width SD 60.9 fl (35.1-43.9); Red Blood Count 3.95 M/mm3 (4.2-5.4); White Blood Count 6.8 K/mm3 (4.4-11.0)
[2022-01-16 10:14] LABS: Anion Gap 7 (5-15); BUN 12 mg/dL (7-18); BUN/Creat Ratio 22.2 RATIO (10-20); Calcium,Total 8.3 mg/dL (8.5-10.1); Chloride 104 mmol/L (98-107); Creatinine, Serum 0.54 mg/dL (0.55-1.02); EST Glomerular Filtration Rate 117 mL/min (>60); Est Glom Filt Rate - Afr Amer 142 mL/min (>60); Glucose 89 mg/dL (74-106); Potassium 3.8 mmol/L (3.5-5.1); Sodium Level 139 mmol/L (136-145)
== END ==
LOC: OLS.WHLTCC 05:00
PROVIDERS: PCP Family Medicine; Visit Provider Family Medicine
DX: S06.360D Traumatic hemorrhage of cerebrum, unspecified, without loss of consciousness, subsequent encounter (principal); S22.42XD Multiple fractures of ribs, left side, subsequent encounter for fracture with routine healing; F41.9 Anxiety disorder, unspecified; D72.829 Elevated white blood cell count, unspecified
CPT/HCPCS: 36415; 80048; 85027

== ENCOUNTER → 2022-01-22 | Outpatient (REF) | payer MEDICARE, BC, SELFPAY ==
[2022-01-22 09:13] LABS: Vitamin D,25 Hydroxy 39.5 ng/mL
[2022-01-22 09:29] LABS: Magnesium 1.9 mg/dL (1.6-2.6); Thyroid Stim Hormone (TSH) 0.57 uIU/mL (0.358-3.74)
[2022-01-23 04:57] LABS: Hematocrit 36.5 % (37-47); Hemoglobin 11.4 g/dL (12.0-15.0); Mean Corp Hgb Conc 31.2 g/dL (32-36); Mean Corpuscular Hgb 27.5 pg (27.0-32.0); Mean Platelet Vol. 12.8 fl (6.2-12.0); Platelet Count 263 K/mm3 (150-450); RBC Distribution Width CV 19.9 % (11.6-14.6); RBC Distribution Width SD 63.7 fl (35.1-43.9); Red Blood Count 4.15 M/mm3 (4.2-5.4); White Blood Count 7.6 K/mm3 (4.4-11.0)
[2022-01-23 05:08] LABS: Anion Gap 10 (5-15); BUN 14 mg/dL (7-18); BUN/Creat Ratio 24.1 RATIO (10-20); Calcium,Total 8.5 mg/dL (8.5-10.1); Chloride 106 mmol/L (98-107); Creatinine, Serum 0.58 mg/dL (0.55-1.02); EST Glomerular Filtration Rate 107 mL/min (>60); Est Glom Filt Rate - Afr Amer 130 mL/min (>60); Glucose 92 mg/dL (74-106); Potassium 3.2 mmol/L (3.5-5.1); Sodium Level 142 mmol/L (136-145)
== END ==
LOC: OLS.WHLTCC 05:00
PROVIDERS: PCP Family Medicine; Visit Provider Family Medicine
DX: S06.360D Traumatic hemorrhage of cerebrum, unspecified, without loss of consciousness, subsequent encounter (principal); S22.42XD Multiple fractures of ribs, left side, subsequent encounter for fracture with routine healing; F41.9 Anxiety disorder, unspecified; D72.829 Elevated white blood cell count, unspecified
CPT/HCPCS: 36415; 80048; 82306; 83735; 84443; 85027

== ENCOUNTER → 2022-01-30 | Outpatient (REF) | payer MEDICARE, BC, SELFPAY ==
[2022-01-30 09:44] LABS: Hematocrit 39.1 % (37-47); Mean Corp Hgb Conc 30.7 g/dL (32-36); Mean Corpuscular Hgb 27.6 pg (27.0-32.0); Mean Corpuscular Volume 90.1 fL (81-99); Mean Platelet Vol. 13.4 fl (6.2-12.0); POSITIVE MORPHOLOGY YES; Platelet Count 249 K/mm3 (150-450); RBC Distribution Width CV 20.3 % (11.6-14.6); RBC Distribution Width SD 66.9 fl (35.1-43.9); Red Blood Count 4.34 M/mm3 (4.2-5.4)
[2022-01-30 09:53] LABS: Anion Gap 7 (5-15); BUN 10 mg/dL (7-18); BUN/Creat Ratio 17.5 RATIO (10-20); Calcium,Total 8.9 mg/dL (8.5-10.1); Chloride 104 mmol/L (98-107); Creatinine, Serum 0.57 mg/dL (0.55-1.02); EST Glomerular Filtration Rate 110 mL/min (>60); Est Glom Filt Rate - Afr Amer 133 mL/min (>60); Glucose 83 mg/dL (74-106); Potassium 3.9 mmol/L (3.5-5.1); Sodium Level 139 mmol/L (136-145)
[2022-01-30 10:32] LABS: Scan Indicated on CBC? Y/N YES- FLAGS NOTED
== END ==
LOC: OLS.WHLTCC 05:00
PROVIDERS: PCP Family Medicine; Visit Provider Family Medicine
DX: S06.360D Traumatic hemorrhage of cerebrum, unspecified, without loss of consciousness, subsequent encounter (principal); S22.42XD Multiple fractures of ribs, left side, subsequent encounter for fracture with routine healing; F41.9 Anxiety disorder, unspecified; D72.829 Elevated white blood cell count, unspecified
CPT/HCPCS: 36415; 80048; 85027

== ENCOUNTER → 2022-02-06 | Outpatient (REF) | payer MEDICARE, BC, SELFPAY ==
[2022-02-06 08:50] LABS: Hematocrit 33.7 % (37-47); Hemoglobin 10.6 g/dL (12.0-15.0); Mean Corp Hgb Conc 31.5 g/dL (32-36); Mean Corpuscular Hgb 28.2 pg (27.0-32.0); Mean Corpuscular Volume 89.6 fL (81-99); Mean Platelet Vol. 12.8 fl (6.2-12.0); POSITIVE MORPHOLOGY YES; Platelet Count 236 K/mm3 (150-450); RBC Distribution Width CV 20.2 % (11.6-14.6); RBC Distribution Width SD 66.9 fl (35.1-43.9); Red Blood Count 3.76 M/mm3 (4.2-5.4); White Blood Count 5.6 K/mm3 (4.4-11.0)
[2022-02-06 08:51] LABS: Scan Indicated on CBC? Y/N YES- FLAGS NOTED
[2022-02-06 09:06] LABS: Anion Gap 8 (5-15); BUN 16 mg/dL (7-18); BUN/Creat Ratio 32.7 RATIO (10-20); Chloride 105 mmol/L (98-107); Creatinine, Serum 0.49 mg/dL (0.55-1.02); EST Glomerular Filtration Rate 131 mL/min (>60); Est Glom Filt Rate - Afr Amer 158 mL/min (>60); Glucose 80 mg/dL (74-106); Potassium 3.8 mmol/L (3.5-5.1); Sodium Level 141 mmol/L (136-145)
== END ==
LOC: OLS.WHLTCC 05:00
PROVIDERS: PCP Family Medicine; Visit Provider Family Medicine
DX: S06.360D Traumatic hemorrhage of cerebrum, unspecified, without loss of consciousness, subsequent encounter (principal); S22.42XD Multiple fractures of ribs, left side, subsequent encounter for fracture with routine healing; F41.9 Anxiety disorder, unspecified; D72.829 Elevated white blood cell count, unspecified
CPT/HCPCS: 36415; 80048; 85027

== ENCOUNTER → 2022-02-13 | Outpatient (REF) | payer MEDICARE, BC, SELFPAY ==
[2022-02-13 08:29] LABS: Hematocrit 33.3 % (37-47); Hemoglobin 10.7 g/dL (12.0-15.0); Mean Corp Hgb Conc 32.1 g/dL (32-36); Mean Corpuscular Hgb 29.1 pg (27.0-32.0); Mean Corpuscular Volume 90.5 fL (81-99); Mean Platelet Vol. 12.6 fl (6.2-12.0); POSITIVE MORPHOLOGY YES; Platelet Count 258 K/mm3 (150-450); RBC Distribution Width SD 67.1 fl (35.1-43.9); Red Blood Count 3.68 M/mm3 (4.2-5.4); White Blood Count 5.2 K/mm3 (4.4-11.0)
[2022-02-13 09:17] LABS: Anion Gap 2 (5-15); BUN 13 mg/dL (7-18); BUN/Creat Ratio 28.9 RATIO (10-20); Calcium,Total 9.1 mg/dL (8.5-10.1); Chloride 106 mmol/L (98-107); Creatinine, Serum 0.45 mg/dL (0.55-1.02); EST Glomerular Filtration Rate 144 mL/min (>60); Est Glom Filt Rate - Afr Amer 175 mL/min (>60); Glucose 78 mg/dL (74-106); Potassium 3.8 mmol/L (3.5-5.1); Sodium Level 140 mmol/L (136-145)
== END ==
LOC: OLS.WHLTCC 05:00
PROVIDERS: PCP Family Medicine; Visit Provider Family Medicine
DX: S06.360D Traumatic hemorrhage of cerebrum, unspecified, without loss of consciousness, subsequent encounter (principal); S22.42XD Multiple fractures of ribs, left side, subsequent encounter for fracture with routine healing; F41.9 Anxiety disorder, unspecified; D72.829 Elevated white blood cell count, unspecified
CPT/HCPCS: 36415; 80048; 85027

== ENCOUNTER → 2022-02-20 | Outpatient (REF) | payer MEDICARE, BC, SELFPAY ==
[2022-02-20 09:50] LABS: Hematocrit 38.3 % (37-47); Hemoglobin 12.3 g/dL (12.0-15.0); Mean Corp Hgb Conc 32.1 g/dL (32-36); Mean Corpuscular Hgb 29.2 pg (27.0-32.0); Mean Platelet Vol. 11.7 fl (6.2-12.0); POSITIVE MORPHOLOGY YES; Platelet Count 325 K/mm3 (150-450); RBC Distribution Width CV 19.8 % (11.6-14.6); RBC Distribution Width SD 66.1 fl (35.1-43.9); Red Blood Count 4.21 M/mm3 (4.2-5.4); White Blood Count 6.6 K/mm3 (4.4-11.0)
[2022-02-20 10:11] LABS: Anion Gap 7 (5-15); BUN 9 mg/dL (7-18); BUN/Creat Ratio 20.7 RATIO (10-20); Calcium,Total 9.3 mg/dL (8.5-10.1); Chloride 100 mmol/L (98-107); Creatinine, Serum 0.44 mg/dL (0.55-1.02); EST Glomerular Filtration Rate 150 mL/min (>60); Est Glom Filt Rate - Afr Amer 182 mL/min (>60); Glucose 89 mg/dL (74-106); Potassium 3.9 mmol/L (3.5-5.1); Sodium Level 136 mmol/L (136-145)
[2022-02-20 11:03] LABS: Scan Indicated on CBC? Y/N YES- FLAGS NOTED
== END ==
LOC: OLS.WHLTCC 05:00
PROVIDERS: PCP Family Medicine; Visit Provider Family Medicine
DX: S06.360D Traumatic hemorrhage of cerebrum, unspecified, without loss of consciousness, subsequent encounter (principal); S22.42XD Multiple fractures of ribs, left side, subsequent encounter for fracture with routine healing; D72.829 Elevated white blood cell count, unspecified; F41.9 Anxiety disorder, unspecified
CPT/HCPCS: 36415; 80048; 85027

== ENCOUNTER → 2022-02-27 | Outpatient (REF) | payer MEDICARE, BC, SELFPAY ==
[2022-02-27 08:35] LABS: Hematocrit 35.6 % (37-47); Hemoglobin 11.6 g/dL (12.0-15.0); Mean Corp Hgb Conc 32.6 g/dL (32-36); Mean Corpuscular Hgb 29.5 pg (27.0-32.0); Mean Corpuscular Volume 90.6 fL (81-99); Mean Platelet Vol. 12.8 fl (6.2-12.0); Platelet Count 275 K/mm3 (150-450); RBC Distribution Width CV 19.1 % (11.6-14.6); RBC Distribution Width SD 63.4 fl (35.1-43.9); Red Blood Count 3.93 M/mm3 (4.2-5.4); White Blood Count 6.6 K/mm3 (4.4-11.0)
[2022-02-27 08:45] LABS: Anion Gap 5 (5-15); BUN 17 mg/dL (7-18); BUN/Creat Ratio 29.4 RATIO (10-20); Calcium,Total 9.1 mg/dL (8.5-10.1); Chloride 106 mmol/L (98-107); Creatinine, Serum 0.58 mg/dL (0.55-1.02); EST Glomerular Filtration Rate 108 mL/min (>60); Est Glom Filt Rate - Afr Amer 131 mL/min (>60); Glucose 91 mg/dL (74-106); Potassium 4.1 mmol/L (3.5-5.1); Sodium Level 139 mmol/L (136-145)
== END ==
LOC: OLS.WHLTCC 05:00
PROVIDERS: PCP Family Medicine; Visit Provider Family Medicine
DX: S06.360D Traumatic hemorrhage of cerebrum, unspecified, without loss of consciousness, subsequent encounter (principal); S22.42XD Multiple fractures of ribs, left side, subsequent encounter for fracture with routine healing; F41.9 Anxiety disorder, unspecified; D72.829 Elevated white blood cell count, unspecified
CPT/HCPCS: 36415; 80048; 85027

== ENCOUNTER → 2022-03-06 | Outpatient (REF) | payer MEDICARE, BC, SELFPAY ==
[2022-03-06 09:26] LABS: Hematocrit 37.2 % (37-47); Mean Corp Hgb Conc 32.3 g/dL (32-36); Mean Corpuscular Hgb 29.6 pg (27.0-32.0); Mean Corpuscular Volume 91.9 fL (81-99); Mean Platelet Vol. 12.7 fl (6.2-12.0); Platelet Count 272 K/mm3 (150-450); RBC Distribution Width CV 17.7 % (11.6-14.6); RBC Distribution Width SD 59.7 fl (35.1-43.9); Red Blood Count 4.05 M/mm3 (4.2-5.4); White Blood Count 5.7 K/mm3 (4.4-11.0)
[2022-03-06 09:38] LABS: Anion Gap 7 (5-15); BUN 9 mg/dL (7-18); BUN/Creat Ratio 15.9 RATIO (10-20); Chloride 102 mmol/L (98-107); Creatinine, Serum 0.57 mg/dL (0.55-1.02); EST Glomerular Filtration Rate 111 mL/min (>60); Est Glom Filt Rate - Afr Amer 134 mL/min (>60); Glucose 90 mg/dL (74-106); Sodium Level 137 mmol/L (136-145)
== END ==
LOC: OLS.WHLTCC 05:00
PROVIDERS: PCP Family Medicine; Visit Provider Family Medicine
DX: S06.360D Traumatic hemorrhage of cerebrum, unspecified, without loss of consciousness, subsequent encounter (principal); S22.42XD Multiple fractures of ribs, left side, subsequent encounter for fracture with routine healing; F41.9 Anxiety disorder, unspecified; D72.829 Elevated white blood cell count, unspecified
CPT/HCPCS: 36415; 80048; 85027

== ENCOUNTER → 2022-06-07 | Outpatient (CLI) | payer MEDICARE, BC, SELFPAY ==
--- NOTE | 2022-06-07 14:03 | VDLE_ITS ---
Reason For Study: Pain RIGHT LEFT GSV is normal. CFV is compressible, spontaneous, phasic, CFV is compressible, spontaneous, phasic, competent, and demonstrates normal competent and demonstrates normal augmentation. augmentation. FV is compressible, spontaneous, phasic, competent and demonstrates normal augmentation. POP V is compressible, spontaneous, phasic, competent and demonstrates normal augmentation. T/P Trunk is compressible. PTV is compressible. RT PerV is compressible. Large nonvascularized structure noted in the right thigh. Procedure This is a venous duplex using B-mode, color flow and spectral Doppler. Exam performed in department. A preliminary report was called and/or faxed to Debra. VL/Venous Duplex US, Unilateral Interpretation Summary Deep veins of the right lower extremity are patent and compressible segmentally . There is no evidence of right lower extremity deep vein thrombosis. The right great sapheno us vein appears patent and compressible segmentally. Large nonvascularized structure noted in the right thigh. Ordering Physician: Erica Richardson Referring Physician: Erica Richardson Performed By: Leena Begum RVT
== END | disposition home or self-care (01) ==
PROVIDERS: PCP Family Medicine; Visit Provider Family Medicine
DX: M79.651 Pain in right thigh (principal)
CPT/HCPCS: 93971

== ENCOUNTER → 2022-06-26 | Outpatient (CLI) | payer MEDICARE, BC, SELFPAY ==
--- NOTE | 2022-06-26 16:25 | MRI_ITS ---
EXAM: MR RIGHT LOWER EXTREMITY WITHOUT INTRAVENOUS CONTRAST, FEMUR CLINICAL INDICATION: RIGHT medial thigh ST mass with bruising TECHNIQUE: Multiplanar and multisequence MR images of the right femur without intravenous contrast. This report was created using [employer] report Videoflow technology. COMPARISON: None. 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 Extensive suprapatellar joint fluid dissecting along the medial cortex of the right femur extending to the femoral shaft level. No fracture. No abnormal bone marrow signal. MUSCLES: Unremarkable. No edema or myositis. OTHER SOFT TISSUES: Subcutaneous edema anteriorly. No organized fluid collections are seen. OTHER FINDINGS: Large right suprapatellar joint effusion. MRI/Lower Ext/No Jt/w/o IMPRESSION: 1. Extensive suprapatellar joint fluid dissecting along the medial cortex of the right femur extending to the femoral shaft level. 2. 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 Electronically Signed: Bernabe Thompson MD at 2:03 EST ,
== END | disposition home or self-care (01) ==
LOC: MRI 15:39
PROVIDERS: PCP Family Medicine; Referring Provider Family Medicine; Visit Provider Family Medicine
DX: M79.89 Other specified soft tissue disorders (principal); M79.652 Pain in left thigh
CPT/HCPCS: 73718

== ENCOUNTER 2022-07-02 16:13 | Emergency (ER) | payer MEDICARE, BC, SELFPAY ==
[2022-07-02 16:14] VITALS: BP 150/76; PULSE 73; RESP 16; TEMP 36.3; O2SAT 99; BMI 21.7
--- NOTE | 2022-07-02 17:16 | CT_ITS ---
INDICATION: Headache and facial pain after trauma. EXAMINATION: CT Head or Brain and facial bones W/O Contrast Injection TECHNIQUE: Multiple axial images were obtained of the head and facial bones without intravenous contrast. A radiation dose optimization technique was used for this scan. IV Contrast dosage and agent: None. COMPARISON: January 10, 2022 CT brain. FINDINGS: Right internal jugular central line in place. BRAIN PARENCHYMA: No intra- or extra-axial hemorrhage. No evidence of acute infarct. No intracranial mass or mass effect. No vasogenic edema. There is preservation of the perry/white matter interface. Parenchymal volume loss and small vessel ischemic disease changes, stable appearance. Posterior fossa structures are unremarkable. CSF SPACES: No hydrocephalus. Basal cisterns are patent. No abnormal extra-axial fluid collection. CALVARIUM, SKULL BASE, PARANASAL SINUSES AND MASTOID AIR CELLS: Air-blood level in the right maxillary sinus. Mild opacity in the right anterior ethmoid air cells. No calvarial fracture. FACIAL BONES: Nondisplaced fracture of the right lateral maxillary sinus wall; right orbital floor fracture. SOFT TISSUES: Right facial soft tissue swelling. ORBITS: Right orbital floor fracture. No displaced right medial orbital wall fracture, possible nondisplaced fracture. Gas within the right orbit, the right infratemporal fossa and right facial soft tissues. Small amount of gas is seen adjacent to the right medial orbital wall. Litigation Paralegal image demonstrates right humeral and left rib ORIF hardware. CT/Sinus/Facial Bone IMPRESSION: No acute intracranial findings. Right orbital floor fracture. Possible nondisplaced right medial orbital wall fracture. Electronically Signed: Avni Velasco MD at 18:17 EDT ,
--- NOTE | 2022-07-02 17:16 | CT_ITS ---
INDICATION: Neck pain after injury. EXAMINATION: CT Spine Cervical W/O Contrast Injection TECHNIQUE: Helically acquired images were obtained of the cervical spine. 2D reformatted images were reviewed. A radiation dose optimization technique was used for this scan. IV Contrast dosage and agent: None. COMPARISON: October 06, 2021 CT cervical spine. FINDINGS: VERTEBRAE: No fracture or traumatic subluxation. No discrete lytic or blastic abnormality. Reversal of the normal lordosis. Grade 1 anterolisthesis of C3 upon C4 and C4 upon C5, not significantly changed. Fusion of several facets and asymmetric facet arthropathy, stable appearance. DISCS and SPINAL CANAL: Stable degenerative disc disease changes. NECK SOFT TISSUES: No prevertebral soft tissue swelling. There is no cervical adenopathy. Thyroidectomy. LUNG APICES: Asymmetric scarring in the left lung apex. Right internal jugular catheter in place. CT/Spine Cervical without Contras IMPRESSION: No acute cervical spine osseous injury. Electronically Signed: Avni Velasco MD at 18:21 EDT ,
--- NOTE | 2022-07-02 17:16 | CT_ITS ---
INDICATION: Headache and facial pain after trauma. EXAMINATION: CT Head or Brain and facial bones W/O Contrast Injection TECHNIQUE: Multiple axial images were obtained of the head and facial bones without intravenous contrast. A radiation dose optimization technique was used for this scan. IV Contrast dosage and agent: None. COMPARISON: January 10, 2022 CT brain. FINDINGS: Right internal jugular central line in place. BRAIN PARENCHYMA: No intra- or extra-axial hemorrhage. No evidence of acute infarct. No intracranial mass or mass effect. No vasogenic edema. There is preservation of the perry/white matter interface. Parenchymal volume loss and small vessel ischemic disease changes, stable appearance. Posterior fossa structures are unremarkable. CSF SPACES: No hydrocephalus. Basal cisterns are patent. No abnormal extra-axial fluid collection. CALVARIUM, SKULL BASE, PARANASAL SINUSES AND MASTOID AIR CELLS: Air-blood level in the right maxillary sinus. Mild opacity in the right anterior ethmoid air cells. No calvarial fracture. FACIAL BONES: Nondisplaced fracture of the right lateral maxillary sinus wall; right orbital floor fracture. SOFT TISSUES: Right facial soft tissue swelling. ORBITS: Right orbital floor fracture. No displaced right medial orbital wall fracture, possible nondisplaced fracture. Gas within the right orbit, the right infratemporal fossa and right facial soft tissues. Small amount of gas is seen adjacent to the right medial orbital wall. Flight Test Engineer image demonstrates right humeral and left rib ORIF hardware. CT/Brain/Head without Contrast IMPRESSION: No acute intracranial findings. Right orbital floor fracture. Possible nondisplaced right medial orbital wall fracture. Electronically Signed: Avni Velasco MD at 18:14 EDT ,
--- NOTE | 2022-07-02 17:19 | EDS_ITS ---
HPI History of Present Illness Chief Complaint: Fall Informant: patient and other (Healthcare special event assistant) Narrative Narrative: Patient was walking in her house. She used a walker. She got the walker caught on the edge of the carpet causing her to fall forward. She hit her head. Denies loss of consciousness and she is not on blood thinners. She has pain mostly in the right upper forehead where she has a laceration. She states there is just a funny feeling to her right upper lip it feels like she bruised it Patient did have a fall almost a year ago with significant injuries to her ribs and head and neck. She had surgery and was in rehab for almost 6 months relearning to walk. She is still somewhat unstable. This fall was mechanical. She never lost consciousness and did not have palpitations or lightheadedness. [facility] Medical History Alcohol abuse Alcohol intoxication Anemia Anxiety Arthritis Back problem Benzodiazepine dependence Bladder infection Bone fracture Breast cancer Breast cancer Breast lump BROKEN ARM REPAIR Calcium deficiency Cancer Debility Depression Depression Fall Frequent falls GERD (gastroesophageal reflux disease) Glaucoma High cholesterol High triglycerides History of recent fall HTN (hypertension) Hypertension Hypokalemia Hypomagnesemia Hyponatremia Hypoparathyroidism after procedure Hypothyroidism Hypothyroidism Hypothyroidism (acquired) Melanoma Multiple rib fractures Opioid dependence Pancreatitis Parathyroid abnormality Pneumonia Postsurgical hypoparathyroidism Postsurgical hypothyroidism Rheumatoid arthritis Right arm fracture Scalp laceration Skin cancer Subdural hematoma Tobacco abuse UTI (urinary tract infection) Vitamin D deficiency Home Medications buspirone 5 mg tablet 5 tablet PO DAILY MOOD 08/01/20 [History Last Taken 03/07/21] folic acid-vit B6-vit B12 2.5 mg-25 mg-1 mg tablet 1 ea PO DAILY SUPPLEMENT 0 08/01/20 [History Last Taken 03/08/21] indapamide 1.25 mg tablet 1.25 mg PO DAILY HEART 08/01/20 [History Last Taken 03/08/21] letrozole 2.5 mg tablet 2.5 mg PO DAILY 08/01/20 [History Last Taken 03/08/21] nortriptyline 50 mg capsule 50 mg PO QHS 08/01/20 [History Last Taken 03/07/21] potassium chloride 20 mEq tablet,extended release(part/cryst) 20 meq PO BID SUPPLEMENT 08/01/20 [History Last Taken 03/08/21] valacyclovir 1 gram tablet 1,000 mg PO DAILY SHINGLES 08/01/20 [History Last Taken 03/08/21] famotidine 20 mg tablet (Pepcid) 20 mg PO BID GERD 03/08/21 [History Last Taken 03/07/21] lisinopril 10 mg tablet 10 mg PO DAILY BP 03/08/21 [History Last Taken 03/08/21] pregabalin 50 mg capsule 50 mg PO BID PAIN 03/08/21 [History Last Taken 03/08/21] cyclobenzaprine 5 mg tablet 5 mg PO TID PRN PRN Muscle Spasm #10 tabs 03/09/21 [Rx Last Taken Unknown] dexamethasone sodium phosphate 0.1 % eye drops 1 drp ophthalmic (eye) BID glaucoma 03/09/21 [History Last Taken 03/08/21 06:00] oxycodone 5 mg tablet 5 mg PO Q6H PRN pain 3 days #12 tabs 03/09/21 [Rx Last Taken Unknown] meclizine 25 mg tablet 25 mg PO Q8H PRN PRN Dizziness #20 tabs 05/21/21 [Rx Last Taken Unknown] hydrocodone 10 mg-acetaminophen 325 mg tablet 1 tab PO Q4H PRN PRN Pain 06/11/21 [History Last Taken Unknown] calcitriol 0.5 mcg capsule 0.5 mcg PO DAILY #90 caps 08/07/21 [Rx Last Taken Unknown] calcium carb,cit ER 600 mg-vit D3 12.5 mcg (500 unit) tablet,ext.rel (Citracal- D3 Slow Release) 1 tab PO DAILY #1 TAB 08/07/21 [Rx Last Taken Unknown] levothyroxine 125 mcg tablet 125 mcg PO DAILY #90 tabs 08/28/21 [Rx Last Taken Unknown] clonazepam 1 mg tablet 1 mg PO BID #6 tabs 03/03/22 [Rx Last Taken Unknown] pregabalin 75 mg capsule 75 mg PO TID #9 caps 03/03/22 [Rx Last Taken Unknown] Allergy/AdvReac Type Severity Reaction Status Date / Time bacitracin Allergy Unknown Unknown Verified 07/02/22 16:16 [From Neosporin ([id number])] neomycin Allergy Unknown Unknown Verified 07/02/22 16:16 [From Neosporin ([id number])] polymyxin B Allergy Unknown Unknown Verified 07/02/22 16:16 [From Neosporin ([id number])] Antihistamines - Alkylamine Allergy PT UNSURE Verified 07/02/22 16:16 OF REACTION diphenhydramine Allergy PT UNSURE Verified 07/02/22 16:16 [From Benadryl] OF REACTION Family History Unknown Thyroid disorder Cancer High cholesterol Arthritis Mother Cancer Diabetes Father , Father at the age of 50 from successful suicide attempt. Suicidal intent Other Alcohol abuse Anxiety Depression Heart disease Hypertension Mental disorder Parkinson disease Psychiatric care Surgical History H/O mastectomy H/O thyroidectomy Status post glaucoma surgery Social History household members: none Smoking Status: Former smoker second hand exposure: Yes alcohol intake: never substance use type: does not use ROS ROS ED Constitutional Constitutional ED: Denies chills, fever(s) or subjective Eyes Eyes: Denies change in vision ENT ENT ED: Reports other Details: Fullness feeling to her right upper lip and teeth area but not really painful. She does have a laceration above her right eye that is currently dressed and not bleeding. ; Denies rhinorrhea or sore throat Cardiovascular Cardiovascular: Denies chest pain or palpitations Respiratory/Chest Respiratory/Chest: Denies cough or dyspnea Gastrointestinal Gastrointestinal: Denies abdominal pain, nausea or vomiting Genitourinary Genitourinary ED: Denies hematuria Musculoskeletal Musculoskeletal: Denies back pain or neck pain Integumentary Reports other Details: Laceration of forehead Neurologic Neurologic: Reports headache(s) and other Details: Patient actually has pain really in the right forehead rather than true diffuse headache. Endocrine Endocrinology: Denies polydipsia Hematologic/Lymphatic Hematologic/Lymphatic: Denies easy bleeding or easy bruising Allergic/Immunologic Allergic/Immunologic ED: Denies urticaria EXAM Physical Exam Narrative Exam Narrative: Patient is awake alert no acute distress. She has a dressing on her forehead. This will be looked at after CT to avoid initiating bleeding that delays her evaluation. HEENT: Dressing as above. Her teeth actually meet normally. They are not mobile. They are not tender. I do not see any lacerations. There is a little bit of fullness of the right lip but no significant swelling. Oropharynx is normal. The laceration was not examined at this time as bleeding is controlled. Neck is not showing any tenderness. Lungs are clear to auscultation. Breathing is easy and unlabored. Saturations are normal at 99% on room air. Heart is regular. Not muffled. Peripheral pulses are equal. Abdomen is soft and nontender. Back shows no tenderness at the cervical thoracic and lumbar area. Extremities show no abrasions or tenderness or deformity. I moved her lower and upper extremities and pressed on the clavicle and scapula no tenderness in these areas. Neurologically she is awake alert appropriate and acting normally per the health aide that is with this. Of note, patient was asking something for pain. The health aide let us know by text on the phone that this patient has had problems with narcotics. The patient's daughter would like to try to avoid narcotics initially on her because of this. Const Vital Signs: 07/02/22 16:14 Temperature 97.3 F L Temperature Source Temporal Pulse Rate 73 Respiratory Rate 16 Blood Pressure 150/76 H Blood Pressure Mean 100 Pulse Ox 99 Oxygen Delivery Method Room Air MDM MDM MDM Narrative Medical decision making narrative: My independent interpretation of the patient's CT does show an orbital blowout fracture. There does not appear to be any acute entrapment. Final reading is also consistent with a right orbital floor fracture and possible nondisplaced right medial orbital wall fracture Procedure: Suture laceration: We then turned our attention to the laceration above the right eye. This was 3 cm in length. The upper portion had a separate laceration going at about 30 degrees from this. It was not bleeding. It was cleansed. We anesthetized it with 3 cc of 1% lidocaine with epinephrine locally with good anesthesia. The area was then scrubbed. It was irrigated. It was sterilely prepped and draped. It was sutured with 6 interrupted 6-0 Ethilon sutures. 1 of these grabbed all 3 portions of the laceration to pull them together. It closed with good cosmesis hemostasis and patient tolerated this well. Sutures out in about 5 days. I talk with both patient and her daughter. Patient does have some narcotic pain meds at home. Her daughter states that she does not need anymore because they have plenty. I explained that she may need some for this fracture. These usually heal well. She does have an appointment with her economic development manager already in about 3 days. She was going to cancel that but I explained she should keep that. For 1 reason she broke her glasses in this fall and that is what thought to have caused a laceration. But they can also recheck this laceration and clinically how she is doing. At this point she has no limitation of upward gaze or facial anesthesia. She has a blowout fracture but no sign of entrapment clinically. Radiography Diagnostic Testing: Clinical Impression(s) from Imaging Studies Brain CT 07/02/22 17:16 IMPRESSION: No acute intracranial findings. Right orbital floor fracture. Possible nondisplaced right medial orbital wall fracture. Electronically Signed: Avni Velasco MD at 18:14 EDT , Cervical Spine CT 07/02/22 17:16 IMPRESSION: No acute cervical spine osseous injury. Electronically Signed: Avni Velasco MD at 18:21 EDT , Facial/Sinus 07/02/22 17:16 IMPRESSION: No acute intracranial findings. Right orbital floor fracture. Possible nondisplaced right medial orbital wall fracture. Electronically Signed: Avni Velasco MD at 18:17 EDT , Discharge Plan Triage Chief Complaint: Fall ED Provider: Sim Ly Dx/Rx/DC Orders Clinical Impression: Fall at home, Fracture of right orbital floor, Forehead laceration, Sutured skin wound Instructions: ED Facial Fracture, ED Head Injury (Adult), Face Laceration Stitches Tape?Ch Prescriptions: No Action valacyclovir 1 gram tablet 1,000 mg PO DAILY Label Comments: TAKE 1 TABLET BY MOUTH THREE TIMES A DAY letrozole 2.5 mg tablet 2.5 mg PO DAILY Label Comments: TAKE 1 TABLET BY MOUTH EVERY DAY indapamide 1.25 mg tablet 1.25 mg PO DAILY Label Comments: TAKE 1 TABLET BY MOUTH EVERY DAY IN THE MORNING potassium chloride 20 mEq tablet,ER particles/crystals 20 meq PO BID Label Comments: TAKE 1 TABLET BY MOUTH EVERY OTHER DAY folic acid-vit B6-vit B12 2.5-25-1 mg tablet 1 ea PO DAILY Label Comments: TAKE 1 TABLET BY MOUTH EVERY DAY buspirone 5 mg tablet 5 tablet PO DAILY nortriptyline 50 mg capsule 50 mg PO QHS calcium carb and citrate-vitD3 [Citracal-D3 Slow Release] 600 mg-12.5 mcg (500 unit) tablet extended release 1 tab PO DAILY Qty: 1 0RF calcitriol 0.5 mcg capsule 0.5 mcg PO DAILY Qty: 90 3RF Rx Instructions: please discontinue any rx for calcitriol by an other doctors lisinopril 10 mg tablet 10 mg PO DAILY pregabalin 50 mg capsule 50 mg PO BID famotidine [Pepcid] 20 mg tablet 20 mg PO BID dexamethasone sodium phosphate 0.1 % drops 1 drp ophthalmic (eye) BID Rx Instructions: R eye only oxycodone 5 mg Tablet 5 mg PO Q6H PRN (Reason: pain) 3 Days Qty: 12 0RF cyclobenzaprine 5 mg Tablet 5 mg PO TID PRN PRN (Reason: Muscle Spasm) Qty: 10 0RF meclizine [meclizine] 25 MG tablet 25 mg PO Q8H PRN PRN (Reason: Dizziness) Qty: 20 0RF hydrocodone-acetaminophen 10-325 mg tablet 1 tab PO Q4H PRN PRN (Reason: Pain) levothyroxine 125 mcg tablet 125 mcg PO DAILY Qty: 90 3RF Rx Instructions: Please discontinue any levothyroxine orders from any other doctors clonazepam 1 mg tablet 1 mg PO BID Qty: 6 0RF pregabalin 75 mg capsule 75 mg PO TID Qty: 9 0RF Primary Care Provider: Erica Richardson Referrals: Erica Richardson DO [Primary Care Provider] - 5 Days for suture removal Activity Restrictions/Additional Instructions: Follow-up with your economic development manager as scheduled. Disposition Disposition: Home, Self Care
[2022-07-02] MEDS: Acetaminophen 500 MG Tablet PO (17:51)
[2022-07-02 20:19] VITALS: BP 152/76; PULSE 78; RESP 16; O2SAT 97
[2022-07-02 21:03] VITALS: BP 129/82; PULSE 75; RESP 16; O2SAT 97
[2022-07-02 21:05] VITALS: BP 130/80; PULSE 79; RESP 16; O2SAT 97
== END 2022-07-02 21:06 | disposition home or self-care (01) ==
PROVIDERS: Emergency Provider Emergency Medicine; PCP Family Medicine; Visit Provider Emergency Medicine
DX: S01.81XA Laceration without foreign body of other part of head, initial encounter (principal); S02.31XA Fracture of orbital floor, right side, initial encounter for closed fracture; Z87.891 Personal history of nicotine dependence; E78.00 Pure hypercholesterolemia, unspecified; I10 Essential (primary) hypertension; W19.XXXA Unspecified fall, initial encounter; Z85.3 Personal history of malignant neoplasm of breast; E03.9 Hypothyroidism, unspecified
CPT/HCPCS: 12013; 70450; 70486; 72125; 99285

== ENCOUNTER → 2022-09-13 | Outpatient (CLI) | payer MEDICARE, BC, SELFPAY ==
[2022-09-13 17:42] LABS: Absolute Lymphocyte Count 1.36 X10^3/uL (0.83-4.51); Absolute Neutrophil Count 7.2 X10^3/uL (2.0-7.7); Eosinophil# 0.59 X10^3/uL; Eosinophils% 5.7 % (0-5); Hematocrit 39.4 % (37-47); Hemoglobin 12.5 g/dL (12.0-15.0); Lymphocyte # 1.36 X10^3/ul (0.83-4.51); Lymphocyte % 13.2 % (19-41); Mean Corp Hgb Conc 31.7 g/dL (32-36); Mean Corpuscular Hgb 31.9 pg (27.0-32.0); Mean Corpuscular Volume 100.5 fL (81-99); Mean Platelet Vol. 11.6 fl (6.2-12.0); Monocyte# 0.98 X10^3/uL; Monocyte% 9.5 % (0-10); NRBC Flagged by Analyzer 0 % (0-5); Neutrophil % 70.2 % (47-70); Platelet Count 335 K/mm3 (150-450); RBC Distribution Width CV 13.1 % (11.6-14.6); RBC Distribution Width SD 48.6 fl (35.1-43.9); Red Blood Count 3.92 M/mm3 (4.2-5.4); White Blood Count 10.3 K/mm3 (4.4-11.0)
[2022-09-13 18:26] LABS: ALB/GLOB Ratio 0.9 RATIO (0.9-2.4); AST(SGOT) 20 U/L (15-37); Alanine Aminotransfer ALT/SGPT 23 U/L (13-56); Albumin, Serum 3.8 g/dL (3.2-5.0); Alkaline Phosphatase 136 U/L (45-117); Anion Gap 8 (5-15); BUN 22 mg/dL (7-18); BUN/Creat Ratio 32.9 RATIO (10-20); Calcium,Total 8.3 mg/dL (8.5-10.1); Chloride 101 mmol/L (98-107); Creatinine, Serum 0.67 mg/dL (0.55-1.02); EST Glomerular Filtration Rate 91 mL/min (>60); Est Glom Filt Rate - Afr Amer 111 mL/min (>60); Free T3 1.4 pg/mL (2.18-3.98); Globulin 4.2 g/dL (2.2-4.2); Glucose 94 mg/dL (74-106); Potassium 4.4 mmol/L (3.5-5.1); Sodium Level 137 mmol/L (136-145); T4 Free Direct 1.06 ng/dL (0.76-1.46); Thyroid Stim Hormone (TSH) 6.44 uIU/mL (0.358-3.74); Uric Acid 3.6 mg/dL (2.6-6.0)
== END | disposition home or self-care (01) ==
LOC: BFHLAB 15:47
PROVIDERS: PCP Family Medicine; Referring Provider Family Medicine; Visit Provider Family Medicine
DX: E03.9 Hypothyroidism, unspecified (principal); E78.5 Hyperlipidemia, unspecified; Z51.81 Encounter for therapeutic drug level monitoring
CPT/HCPCS: 36415; 80053; 84439; 84443; 84481; 84550; 85025

== ENCOUNTER → 2022-11-14 | Outpatient (CLI) | payer MEDICARE, BC, SELFPAY ==
[2022-11-14 16:25] LABS: Free T3 2.2 pg/mL (2.18-3.98); T4 Free Direct 1.35 ng/dL (0.76-1.46); Thyroid Stim Hormone (TSH) 0.75 uIU/mL (0.358-3.74)
== END | disposition home or self-care (01) ==
LOC: BFHLAB 13:51
PROVIDERS: PCP Family Medicine; Referring Provider Family Medicine; Visit Provider Family Medicine
DX: E03.9 Hypothyroidism, unspecified (principal)
CPT/HCPCS: 36415; 84439; 84443; 84481

== ENCOUNTER 2022-11-22 12:40 | Observation (INO) | payer MEDICARE, BC, SELFPAY ==
[2022-11-22] VITALS (8 sets, daily range): BP systolic 115–151; BP diastolic 79–89; PULSE 71–89; RESP 14–18; TEMP 36.2–36.9; O2SAT 89–97; BMI 24.2
--- NOTE | 2022-11-22 13:05 | CT_ITS ---
STUDY: CTA CHEST REASON FOR EXAM: Female, 77 years old. Hypoxia, cough , high suspicion PE. History of breast cancer. RADIATION DOSAGE (If Supplied By Facility): CTDIvol = ( 10.62 ) mGy, DLP = ( 361.20 ) mGycm TECHNIQUE: The examination was performed with the intravenous administration of IV 100mL Isovue-370. Post-processing of the angiographic images was performed, with multiplanar reformation and 3D reconstruction. Individualized dose optimization techniques were used for this CT. COMPARISON: Comparison is made with prior CT scan of the chest dated October 06, 2021. FINDINGS: A right-sided portacatheter is seen. Normal enhancement of the main pulmonary artery and right and left pulmonary arteries. Normal enhancement of the bilateral peripheral pulmonary arteries. There is no demonstrated pulmonary embolism. There is atherosclerotic calcification of the aortic arch with tortuosity. There is no demonstrated aortic dissection. There are calcifications of the coronary arteries. There are visualized mediastinal lymph nodes, which are within normal size limits, and with normal morphology. Normal hilar regions. Normal visualized trachea and bronchi. The lungs are well expanded. Mild scarring and bronchiectasis in the anterior aspect of the left upper lobe. 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 Mild increased markings at the right lung base suggestive of scarring. Prior ORIF of several left ribs. There are degenerative changes of thoracic spine. Normal visualized upper abdomen. CT/CTA Chest W/WO Contrast IMPRESSION: No evidence of pulmonary embolism. Scarring in the left upper lobe most likely secondary to prior radiation. Multiple ORIF of left rib fractures. Electronically Signed: Franki Glez MD at 15:33 EDT ,
--- NOTE | 2022-11-22 13:06 | EKG12_ITS ---
Test Reason : COUGH Blood Pressure : / mmHG Vent. Rate : 070 BPM Atrial Rate : 070 BPM P-R Int : 138 ms QRS Dur : 078 ms QT Int : 398 ms P-R-T Axes : 056 025 022 degrees QTc Int : 429 ms Normal sinus rhythm with sinus arrhythmia Normal ECG Confirmed by ANIKA CRAMER, MARKUS ([id number]), editor producer ONESIMO GRACE ([id number]) on 11/23/2022 9:59:53 AM Referred By: BOOGIE Confirmed By:MARKUS DONALDSON MD
--- NOTE | 2022-11-22 13:08 | ED.VIS.DYS ---
HPI History of Present Illness Chief Complaint: Cough Informant: patient Narrative Narrative: Patient is a 77-year-old female with history of anxiety, neuropathy and hypothyroidism as well as remote history of breast cancer presenting with worsening cough. Patient been having worsening cough for the past few weeks in the past month. She states she started have some sputum production more recently. She states she swallows and does not spit it out so she is not sure what color it is. She does not feel overly short of breath. She went to urgent care today and they sent her to the ER for rule out PE as her chest x-ray was negative. Patient denies any swelling of her legs. Denies any abdominal pain. Notes she has chronically decreased appetite since her . Denies any nausea or vomiting. Has some ongoing constipation issues. Denies any history of pulmonary emboli or DVT. Is not on any blood thinners. Denies any URI symptoms. No other complaints or concerns at this time. [facility] Medical History Alcohol abuse Alcohol intoxication Anemia Anxiety Arthritis Back problem Benzodiazepine dependence Bladder infection Bone fracture Breast cancer Breast cancer Breast lump BROKEN ARM REPAIR Calcium deficiency Cancer Debility Depression Depression Fall Frequent falls GERD (gastroesophageal reflux disease) Glaucoma High cholesterol High triglycerides History of recent fall HTN (hypertension) Hypertension Hypokalemia Hypomagnesemia Hyponatremia Hypoparathyroidism after procedure Hypothyroidism Hypothyroidism Hypothyroidism (acquired) Melanoma Multiple rib fractures Opioid dependence Pancreatitis Parathyroid abnormality Pneumonia Postsurgical hypoparathyroidism Postsurgical hypothyroidism Rheumatoid arthritis Right arm fracture Scalp laceration Skin cancer Subdural hematoma Tobacco abuse UTI (urinary tract infection) Vitamin D deficiency Home Medications potassium chloride 20 mEq tablet,extended release(part/cryst) 40 meq PO DAILY SUPPLEMENT 08/01/20 [History Last Taken 11/22/22] valacyclovir 1 gram tablet 1,000 mg PO DAILY SHINGLES 08/01/20 [History Last Taken 11/22/22] dexamethasone sodium phosphate 0.1 % eye drops 1 drp ophthalmic (eye) DAILY glaucoma 03/09/21 [History Last Taken 11/22/22] hydrocodone 10 mg-acetaminophen 325 mg tablet 1 tab PO Q6H PAIN 06/11/21 [History Last Taken 11/22/22] clonazepam 1 mg tablet 1 mg PO BID #6 tabs 03/03/22 [Rx Last Taken 11/22/22] pregabalin 75 mg capsule 75 mg PO TID PAIN #9 caps 03/03/22 [Rx Last Taken 11/22/22] amlodipine 5 mg tablet 5 mg PO DAILY 11/22/22 [History Last Taken 11/22/22] calcitriol 0.5 mcg capsule 0.5 mcg PO BID 11/22/22 [History Last Taken 11/22/22] cholecalciferol (vitamin D3) 25 mcg (1,000 unit) capsule 25 mcg PO DAILY SUPPLEMENT 11/22/22 [History Last Taken 11/22/22] escitalopram oxalate 10 mg tablet (Lexapro) 10 mg PO DAILY ANXIETY 11/22/22 [History Last Taken 11/22/22] levothyroxine 125 mcg tablet 125 mcg PO DAILY 11/22/22 [History Last Taken 11/22/22] liothyronine 5 mcg tablet 5 mcg PO DAILY 11/22/22 [History Last Taken 11/22/22] magnesium oxide 500 mg tablet 1,000 mg PO DAILY SUPPLEMENT 11/22/22 [History Last Taken 11/22/22] meclizine 25 mg tablet 25 mg PO DAILY Dizziness 11/22/22 [History Last Taken 11/22/22] memantine 5 mg tablet 5 mg PO BID 11/22/22 [History Last Taken 11/22/22] nabumetone 750 mg tablet 750 mg PO BID 11/22/22 [History Last Taken 11/22/22] quetiapine 100 mg tablet 100 mg PO DAILY DEPRESSION 11/22/22 [History Last Taken 11/22/22] Allergy/AdvReac Type Severity Reaction Status Date / Time bacitracin Allergy Unknown Unknown Verified 11/22/22 12:44 [From Neosporin ([id number])] neomycin Allergy Unknown Unknown Verified 11/22/22 12:44 [From Neosporin ([id number])] polymyxin B Allergy Unknown Unknown Verified 11/22/22 12:44 [From Neosporin ([id number])] Antihistamines - Alkylamine Allergy PT UNSURE Verified 11/22/22 12:44 OF REACTION diphenhydramine Allergy PT UNSURE Verified 11/22/22 12:44 [From Benadryl] OF REACTION Family History Unknown Thyroid disorder Cancer High cholesterol Arthritis Mother Cancer Diabetes Father , Father at the age of 50 from successful suicide attempt. Suicidal intent Other Alcohol abuse Anxiety Depression Heart disease Hypertension Mental disorder Parkinson disease Psychiatric care Surgical History H/O mastectomy H/O thyroidectomy Status post glaucoma surgery Social History household members: none Smoking Status: Former smoker second hand exposure: Yes alcohol intake: never substance use type: does not use ROS ROS ED Constitutional Constitutional ED: Denies chills, fever(s) or sweats Eyes Eyes: Denies change in vision ENT ENT ED: Denies rhinorrhea or sore throat Cardiovascular Cardiovascular: Denies chest pain or palpitations Respiratory/Chest Respiratory/Chest: Reports cough and dyspnea on exertion; Denies dyspnea Gastrointestinal Gastrointestinal: Denies abdominal pain, nausea or vomiting Musculoskeletal Musculoskeletal: Denies arthralgias or myalgias Integumentary Denies rash Neurologic Neurologic: Denies headache(s) Hematologic/Lymphatic Hematologic/Lymphatic: Denies easy bleeding or easy bruising EXAM Physical Exam Const Vital Signs: 11/22/22 12:42 11/22/22 12:53 11/22/22 13:05 Temperature 97.2 F L Temperature Source Temporal Pulse Rate 80 73 Respiratory Rate 14 18 Respiratory Effort Normal Respiratory Depth Normal Respiratory Pattern Normal Blood Pressure 115/89 H Blood Pressure Mean 97 Pulse Ox 89 92 Oxygen Delivery Method Room Air Room Air Positive well nourished and well developed Constitutional Narrative: frail General Appearance ED: well developed and NAD HEENT Reports moist mucous membranes Eyes PERRL and EOMs intact bilaterally Neck supple and no JVD Resp normal respiratory effort Cardio regular rate and regular rhythm GI non-tender and non-distended Extremity normal to inspection General Extremety ED: Negative for edema or tenderness General Extremity: Negative for edema Neuro oriented x3 Sensorium / Orientation: alert Motor Exam: general weakness Psych mental status grossly normal Skin no wounds Rashes: no rashes MDM MDM MDM Narrative Medical decision making narrative: Patient is evaluated for ongoing cough for the past month. She appears nontoxic in no acute distress. While in the ER patient is between 89 and 92% on room air just resting. She is largely asymptomatic. Exam is pretty benign. Does not appear fluid overloaded. Have a high suspicion of pulmonary emboli there is no other obvious cause of her symptoms so CTAs ordered. This is negative for pulmonary emboli. She does have some scarring of her left upper lobe likely secondary to prior radiation and multiple ORIF of the left rib fractures that are old but no acute process to explain her acute hypoxia. Laboratory work-up largely remarkable as well, rising stay troponin is 7, her renal function is normal, no significant [place] abnormalities and she has a mild anemia with a hemoglobin of 11 which is nonspecific and does not explain her symptoms. Patient is ambulated in the emergency room and does desaturate pretty significantly. She desaturates to 77%. She is not really symptomatic. I suspect this is more of a chronic issue that is finally getting diagnosis. Discussed with patient that the cause of this hypoxia with ambulation is not clear and the cause of her cough is not clear however I do think she benefit from admission. She is agreeable. Her daughter is at the bedside now who is also agreeable with this plan of care. Case is discussed with my physician, Dr. Chanel. Discussed there could be some underlying condition such as pulmonary hypertension or restrictive lung disease that could be causing her hypoxia as well. Lab Data Attestation: I reviewed the patient's lab results. Labs: Laboratory Results - last 24 hr 11/22/22 14:00 WBC 9.4 RBC 3.81 L Hgb 11.0 L Hct 35.1 L MCV 92.1 MCH 28.9 MCHC 31.3 L RDW Std Deviation 56.1 H RDW Coeff of Felix 16.7 H Plt Count 247 MPV 11.8 Immature Gran % (Auto) 0.400 Neut % (Auto) 64.5 Lymph % (Auto) 15.4 L [place] % (Auto) 12.3 H Eos % (Auto) 6.7 H Baso % (Auto) 0.7 Absolute Neuts (auto) 6.1 Absolute Lymphs (auto) 1.44 Nucleated RBC % 0 Sodium 137 Potassium 4.1 Chloride 102 Carbon Dioxide 32.0 Anion Gap 3 L BUN 16 Creatinine 0.57 Estim Creat Clear Calc 44.80 Est GFR (MDRD) Af Amer 132 Est GFR (MDRD) Non-Af 109 BUN/Creatinine Ratio 27.9 H Glucose 82 Calcium 8.3 L Troponin I High Sens 7 Radiography Diagnostic Testing: Clinical Impression(s) from Imaging Studies Chest CTA 11/22/22 13:05 IMPRESSION: No evidence of pulmonary embolism. Scarring in the left upper lobe most likely secondary to prior radiation. Multiple ORIF of left rib fractures. Electronically Signed: Franki Glez MD at 15:33 EDT , Rhythm Strip Rhythm Strip: Sinus Rhythm Rate: 70 Ectopy: None EKG Initial EKG: Attestation: I personally reviewed and interpreted this EKG as follows: Interpretation: Sinus Rhythm Comments: Normal sinus rhythm at a rate of 70 bpm with sinus arrhythmia Normal axis Normal intervals Normal ST segments Nonspecific T wave inversion lead III Discharge Plan Triage Chief Complaint: Cough ED Provider: Katie Randle Dx/Rx/DC Orders Clinical Impression: Cough, Hypoxia Prescriptions: No Action valacyclovir 1 gram tablet 1,000 mg PO DAILY potassium chloride 20 mEq tablet,ER particles/crystals 40 meq PO DAILY dexamethasone sodium phosphate 0.1 % drops 1 drp ophthalmic (eye) DAILY Rx Instructions: RIGHT EYE hydrocodone-acetaminophen 10-325 mg tablet 1 tab PO Q6H cholecalciferol (vitamin D3) 25 mcg (1,000 unit) capsule 25 mcg PO DAILY magnesium oxide 500 mg tablet 1,000 mg PO DAILY memantine 5 mg tablet 5 mg PO BID nabumetone 750 mg tablet 750 mg PO BID escitalopram oxalate [Lexapro] 10 mg tablet 10 mg PO DAILY quetiapine 100 mg tablet 100 mg PO DAILY liothyronine 5 mcg tablet 5 mcg PO DAILY amlodipine 5 mg tablet 5 mg PO DAILY meclizine [meclizine] 25 MG tablet 25 mg PO DAILY calcitriol 0.5 mcg capsule 0.5 mcg PO BID Rx Instructions: please discontinue any rx for calcitriol by an other doctors levothyroxine 125 mcg tablet 125 mcg PO DAILY clonazepam 1 mg tablet 1 mg PO BID Qty: 6 0RF pregabalin 75 mg capsule 75 mg PO TID Qty: 9 0RF Primary Care Provider: Erica Richardson Referrals: Erica Richardson DO [Primary Care Provider] - Disposition Disposition: Acute Care [facility]
[2022-11-22 14:13] LABS: Absolute Lymphocyte Count 1.44 X10^3/uL (0.83-4.51); Absolute Neutrophil Count 6.1 X10^3/uL (2.0-7.7); Basophil# 0.07 X10^3/uL; Basophil% 0.7 % (0-1); Eosinophil# 0.63 X10^3/uL; Eosinophils% 6.7 % (0-5); Hematocrit 35.1 % (37-47); Lymphocyte # 1.44 X10^3/ul (0.83-4.51); Lymphocyte % 15.4 % (19-41); Mean Corp Hgb Conc 31.3 g/dL (32-36); Mean Corpuscular Hgb 28.9 pg (27.0-32.0); Mean Corpuscular Volume 92.1 fL (81-99); Mean Platelet Vol. 11.8 fl (6.2-12.0); Monocyte# 1.15 X10^3/uL; Monocyte% 12.3 % (0-10); NRBC Flagged by Analyzer 0 % (0-5); Neutrophil # 6.05 X10^3/uL (2.7-7.7); Neutrophil % 64.5 % (47-70); Platelet Count 247 K/mm3 (150-450); RBC Distribution Width CV 16.7 % (11.6-14.6); RBC Distribution Width SD 56.1 fl (35.1-43.9); Red Blood Count 3.81 M/mm3 (4.2-5.4); White Blood Count 9.4 K/mm3 (4.4-11.0)
[2022-11-22 14:32] LABS: Anion Gap 3 (5-15); BUN 16 mg/dL (7-18); BUN/Creat Ratio 27.9 RATIO (10-20); Calcium,Total 8.3 mg/dL (8.5-10.1); Chloride 102 mmol/L (98-107); Creatinine, Serum 0.57 mg/dL (0.55-1.02); EST Glomerular Filtration Rate 109 mL/min (>60); Est Glom Filt Rate - Afr Amer 132 mL/min (>60); Glucose 82 mg/dL (74-106); Potassium 4.1 mmol/L (3.5-5.1); Sodium Level 137 mmol/L (136-145); Troponin-I HS 7 pg/mL (3.0-54.0)
[2022-11-22 17:34] LABS: BNP,B-Type NATRIURETIC PEPTIDE 198.9 pg/mL (0-100)
--- NOTE | 2022-11-22 18:04 | HP.PCM.HOS_ITS ---
HPI - General General Date of Admission: 11/22/22 Date of Service: 11/22/22 Chief Complaint: Progressive worsening of for about 1 month HPI Narrative AIDEN FIELDS, is a 77 F who came to ED for progressive worsening of cough for about 1 month. Patient denies shortness of breath at rest, syncope, chest pain/pressure or tightness, fever or new URI symptoms. She states she gets short of breath on walking/exertion. She has history of degenerative arthritis/gait instability chronic and uses walker and has home health therefore does not climb stairs. She has history of left-sided breast cancer and radiotherapy which is in remissi on for more than 10 years. She used to follow oncologist outside booster but currently does not follow oncologist probably discharged after follow-up. In ED, she was 89% on room air, 92% on room air but on ambulation her oxygen dropped to 70s that is why she required admission. She had CT angiogram of chest which did not show evidence of pulmonary embolism but scarring in left upper lobe most likely due to prior radiation. [facility] Medical History Alcohol abuse Alcohol intoxication Anemia Anxiety Arthritis Back problem Benzodiazepine dependence Bladder infection Bone fracture Breast cancer Breast cancer Breast lump BROKEN ARM REPAIR Calcium deficiency Cancer Debility Depression Depression Fall Frequent falls GERD (gastroesophageal reflux disease) Glaucoma High cholesterol High triglycerides History of recent fall HTN (hypertension) Hypertension Hypokalemia Hypomagnesemia Hyponatremia Hypoparathyroidism after procedure Hypothyroidism Hypothyroidism Hypothyroidism (acquired) Melanoma Multiple rib fractures Opioid dependence Pancreatitis Parathyroid abnormality Pneumonia Postsurgical hypoparathyroidism Postsurgical hypothyroidism Rheumatoid arthritis Right arm fracture Scalp laceration Skin cancer Subdural hematoma Tobacco abuse UTI (urinary tract infection) Vitamin D deficiency Home Medications potassium chloride 20 mEq tablet,extended release(part/cryst) 40 meq PO DAILY SUPPLEMENT 08/01/20 [History Last Taken 11/22/22] valacyclovir 1 gram tablet 1,000 mg PO DAILY SHINGLES 08/01/20 [History Last Taken 11/22/22] dexamethasone sodium phosphate 0.1 % eye drops 1 drp ophthalmic (eye) DAILY glaucoma 03/09/21 [History Last Taken 11/22/22] hydrocodone 10 mg-acetaminophen 325 mg tablet 1 tab PO Q6H PAIN 06/11/21 [History Last Taken 11/22/22] clonazepam 1 mg tablet 1 mg PO BID #6 tabs 03/03/22 [Rx Last Taken 11/22/22] pregabalin 75 mg capsule 75 mg PO TID PAIN #9 caps 03/03/22 [Rx Last Taken 11/22/22] amlodipine 5 mg tablet 5 mg PO DAILY 11/22/22 [History Last Taken 11/22/22] calcitriol 0.5 mcg capsule 0.5 mcg PO BID 11/22/22 [History Last Taken 11/22/22] cholecalciferol (vitamin D3) 25 mcg (1,000 unit) capsule 25 mcg PO DAILY SUPPLEMENT 11/22/22 [History Last Taken 11/22/22] escitalopram oxalate 10 mg tablet (Lexapro) 10 mg PO DAILY ANXIETY 11/22/22 [History Last Taken 11/22/22] levothyroxine 125 mcg tablet 125 mcg PO DAILY 11/22/22 [History Last Taken 11/22/22] liothyronine 5 mcg tablet 5 mcg PO DAILY 11/22/22 [History Last Taken 11/22/22] magnesium oxide 500 mg tablet 1,000 mg PO DAILY SUPPLEMENT 11/22/22 [History Last Taken 11/22/22] meclizine 25 mg tablet 25 mg PO DAILY Dizziness 11/22/22 [History Last Taken 11/22/22] memantine 5 mg tablet 5 mg PO BID 11/22/22 [History Last Taken 11/22/22] nabumetone 750 mg tablet 750 mg PO BID 11/22/22 [History Last Taken 11/22/22] quetiapine 100 mg tablet 100 mg PO DAILY DEPRESSION 11/22/22 [History Last Taken 11/22/22] Allergy/AdvReac Type Severity Reaction Status Date / Time bacitracin Allergy Unknown Unknown Verified 11/22/22 12:44 [From Neosporin ([id number])] neomycin Allergy Unknown Unknown Verified 11/22/22 12:44 [From Neosporin ([id number])] polymyxin B Allergy Unknown Unknown Verified 11/22/22 12:44 [From Neosporin ([id number])] Antihistamines - Alkylamine Allergy PT UNSURE Verified 11/22/22 12:44 OF REACTION diphenhydramine Allergy PT UNSURE Verified 11/22/22 12:44 [From Benadryl] OF REACTION Family History Unknown Thyroid disorder Cancer High cholesterol Arthritis Mother Cancer Diabetes Father , Father at the age of 50 from successful suicide attempt. Suicidal intent Other Alcohol abuse Anxiety Depression Heart disease Hypertension Mental disorder Parkinson disease Psychiatric care Surgical History H/O mastectomy H/O thyroidectomy Status post glaucoma surgery Social History household members: none Smoking Status: Former smoker second hand exposure: Yes alcohol intake: never substance use type: does not use ROS ROS Narrative Constitutional: Reports fatigue and weakness. No fever. HEENT: Reports systems reviewed and no addt'l complaints, except as documented Respiratory/Chest: Ex-smoker quit more than 10 years ago. Rest as mentioned in HPI CVS: Denies cardiac history of coronary artery disease or other chronic conditions. No chest pain or tightness. No pleuritic chest pain Gastrointestinal: Denies coffee ground emesis, hematemesis or vomiting Genitourinary: Denies burning urination or new urinary tract symptoms Musculoskeletal: Chronic joint pain and degenerative arthritis and limited range of motion. On walker. Neurologic: Denies seizure-like symptoms. No strokelike symptoms. skin: No ulcer. No rash Endocrinology: Hypothyroidism status post thyroidectomy reports systems reviewed and no addt'l complaints, except as documented Hematologic/Lymphatic: Reports systems reviewed and no addt'l complaints, except as documented Rest 14 ROS are negative except as mentioned in HPI Vital Signs Vital Signs Vital Signs: 11/22/22 12:42 11/22/22 12:53 11/22/22 13:05 Temperature 97.2 F L Temperature Source Temporal Pulse Rate 80 73 Respiratory Rate 14 18 Respiratory Effort Normal Respiratory Depth Normal Respiratory Pattern Normal Blood Pressure 115/89 H Blood Pressure Mean 97 Pulse Ox 89 92 Oxygen Delivery Method Room Air Room Air 11/22/22 17:49 11/22/22 17:49 Temperature 98 F Temperature Source Temporal Pulse Rate 72 72 Respiratory Rate 18 18 Respiratory Effort Respiratory Depth Respiratory Pattern Blood Pressure 151/79 H 151/79 H Blood Pressure Mean 103 103 Pulse Ox 93 93 Oxygen Delivery Method Room Air Room Air Weight Weight: 150 lb Body Mass Index (BMI) 24.2 Physical Exam Narrative General: Alert, Oriented x3, Cooperative HEENT: Atraumatic, PERRLA, EOMI, Normocephalic Oral: Oral mucosa dry. No Gingival or Mucosal Lesions/ Ulcerations Neck: Supple, No JVD, Negative Carotid Bruits Lungs: Air entry diminished in bilateral lung bases. Bilateral wheezing and expiratory rhonchi present. Dyspnea on exertion Cardiovascular: Regular rate, Regular Rhythm, Normal S1, Normal S2, No murmurs Abdomen: Bowel Sounds Present, Soft, Non Tender, Non-Distended : No renal angle tenderness. No suprapubic tenderness. Extremities: mild chronic nonpitting edema, Capillary Refill Less than 3 Seconds Skin: No rashes, No breakdown Musculoskeletal: No Tenderness to Palpation of Joints or Extremities. ROM limited. Degenerative arthritis of knees and hip joints Neurological: Cranial nerves II-XII grossly intact, DTR 2+/4. No acute focal neurological deficit. Psych/Mental Status: Flat affect. Results Lab / Micro Data 11/22/22 14:00 11/22/22 14:00 Labs: Laboratory Results - last 24 hr 11/22/22 14:00: WBC 9.4, RBC 3.81 L, Hgb 11.0 L, Hct 35.1 L, MCV 92.1, MCH 28.9, MCHC 31.3 L, RDW Std Deviation 56.1 H, RDW Coeff of Felix 16.7 H, Plt Count 247, MPV 11.8, Immature Gran % (Auto) 0.400, Neut % (Auto) 64.5, Lymph % (Auto) 15.4 L, [place] % (Auto) 12.3 H, Eos % (Auto) 6.7 H, Baso % (Auto) 0.7, Absolute Neuts (auto) 6.1, Absolute Lymphs (auto) 1.44, Nucleated RBC % 0, Sodium 137, [place] m 4.1, Chloride 102, Carbon Dioxide 32.0, Anion Gap 3 L, BUN 16, Creatinine 0 .57, Estim Creat Clear Calc 44.80, Est GFR (MDRD) Af Amer 132, Est GFR (MDRD) Non-Af 109, BUN/Creatinine Ratio 27.9 H, Glucose 82, Calcium 8.3 L, Troponin I High Sens 7, B-Natriuretic Peptide 198.9 H Micro: Microbiology 11/22/22 13:35 Nasal Secretion SARS-CoV-2 Antigen (Rapid) - Final Rhythm Strip Rhythm Strip: Sinus Rhythm Rate: 70 Ectopy: None Radiology Impression Chest CTA 11/22/22 13:05 IMPRESSION: No evidence of pulmonary embolism. Scarring in the left upper lobe most likely secondary to prior radiation. Multiple ORIF of left rib fractures. Electronically Signed: Franki Glez MD at 15:33 EDT , Assessment & Plan Assessment/Plan (1) Hypoxia: (2) Dyspnea on exertion: PLAN: Plan 77-year-old female is being admitted for chronic cough, hypoxia on ambulation and dyspnea on exertion 1. Dyspnea on exertion/hypoxia on ambulation probably due to COPD/chronic radiation pneumonitis/scarring, suspected COPD exacerbation: I do not think patient has infectious etiology as per history. Chest CTA in usually reviewed no PE but shows scarring in left upper lobe probably chronic radiation pneumonitis/scarring. She also has history of more than 40 pack years of smoking but quit 10 years ago and does not have diagnosed COPD. She never had PFT. DuoNeb every 6 hourly, Solu-Medrol 40 mg IV every 8 hourly, Zithromax, incentive spirometry/Pep. Mucinex DM 1 tablet twice daily. 2D echo ordered for dyspnea on exertion and hypoxia. 2. History of breast cancer in remission status post radiotherapy more than 10 years ago: No acute issues. 3. Hypothyroidism, hypoparathyroidism after thyroidectomy, chronic anxiety patient, neuropathic pain, degenerative arthritis, GERD and history of frequent falls in the past: PT and OT is ordered. Home medication reconciliation done. VTE prophylaxis high risk: Lovenox 40 mill subcu daily. Living will/advanced directive/end of life care: Patient does not have living will or advanced directive. Next to kin is her daughter, Mrs. Patricia Marx near the bedside. After discussion of benefits/risks procedures involved with full code, DNR CC arrest and DNR CC, the patient said she has not thought about it in the past but after sometimes he said for now she will keep full code. Patient does want artificial life support including intubation, tube feed, ventilator and/chest compression, central venous catheter, vasopressor and DC shock if needed Total time spent in [id number] encounter in discussion of advanced directive 17 minutes. Microbiology Past 72 Hours 11/22/22 13:35 Nasal Secretion SARS-CoV-2 Antigen (Rapid) - Final Laboratory Results 11/22/22 14:00: WBC 9.4, RBC 3.81 L, Hgb 11.0 L, Hct 35.1 L, MCV 92.1, MCH 28.9, MCHC 31.3 L, RDW Std Deviation 56.1 H, RDW Coeff of Felix 16.7 H, Plt Count 247, MPV 11.8, Immature Gran % (Auto) 0.400, Neut % (Auto) 64.5, Lymph % (Auto) 15.4 L, [place] % (Auto) 12.3 H, Eos % (Auto) 6.7 H, Baso % (Auto) 0.7, Absolute Neuts (auto) 6.1, Absolute Lymphs (auto) 1.44, Nucleated RBC % 0, Sodium 137, Potassium 4.1, Chloride 102, Carbon Dioxide 32.0, Anion Gap 3 L, BUN 16, Creatinine 0.57, Estim Creat Clear Calc 44.80, Est GFR (MDRD) Af Amer 132, Est GFR (MDRD) Non-Af 109, BUN/Creatinine Ratio 27.9 H, Glucose 82, Calcium 8.3 L, Troponin I High Sens 7, B-Natriuretic Peptide 198.9 H Clinical Impression(s) from Imaging Studies Chest CTA 11/22/22 13:05 IMPRESSION: No evidence of pulmonary embolism. Scarring in the left upper lobe most likely secondary to prior radiation. Multiple ORIF of left rib fractures. Electronically Signed: Franki Glez MD at 15:33 EDT , Charges/Coding Visit Charges Inpatient E&M: 53775 Init Hosp L3 Procedures Hospitalists Procedures: 57215 Advncd Care Plan 30 Min
[2022-11-22] MEDS: 0.9% Saline Lock 10 ML Syringe IV ×2 (19:53→23:37)
[2022-11-22] MEDS: 0.9% Normal Saline 1,000 ML 75 ML IV (19:54)
[2022-11-22] MEDS: Enoxaparin 40 MG/0.4 ML Syringe SC (20:17)
[2022-11-22] MEDS: Azithromycin 250 MG Tablet 500 MG PO (20:45)
[2022-11-22] MEDS: Pregabalin 75 MG Capsule PO (23:11)
[2022-11-22] MEDS: guaiFENesin/D-Methorphan TAB.SR.12H 2 TABLET PO (23:12)
[2022-11-22] MEDS: Memantine Hydrochloride 5 MG Tablet PO (23:13)
[2022-11-22] MEDS: Calcitriol 0.25 MCG Capsule 0.5 MCG PO (23:13)
[2022-11-22] MEDS: Ipratropium/Albuterol Sulfate 3 ML AMPUL.NEB INHALATION (23:19)
[2022-11-22] MEDS: clonazePAM 1 MG Tablet PO (23:35)
[2022-11-22] MEDS: Methylprednisolone Sod Succ 40 MG/ML VIAL IV (23:37)
[2022-11-23] VITALS (9 sets, daily range): BP systolic 125–139; BP diastolic 70–77; PULSE 80–98; RESP 16–28; TEMP 36.6–36.9; O2SAT 86–97
[2022-11-23] MEDS: Ipratropium/Albuterol Sulfate 3 ML AMPUL.NEB INHALATION ×3 (03:29→11:21)
[2022-11-23 06:23] LABS: Absolute Lymphocyte Count 0.58 X10^3/uL (0.83-4.51); Basophil# 0.03 X10^3/uL; Basophil% 0.5 % (0-1); Lymphocyte # 0.58 X10^3/ul (0.83-4.51); Lymphocyte % 8.7 % (19-41); Mean Corp Hgb Conc 31.6 g/dL (32-36); Mean Corpuscular Hgb 28.4 pg (27.0-32.0); Mean Platelet Vol. 12.1 fl (6.2-12.0); Monocyte# 0.07 X10^3/uL; Monocyte% 1.1 % (0-10); NRBC Flagged by Analyzer 0 % (0-5); Neutrophil # 5.95 X10^3/uL (2.7-7.7); Neutrophil % 89.4 % (47-70); POSITIVE DIFFERENTIAL YES; Platelet Count 281 K/mm3 (150-450); RBC Distribution Width CV 16.4 % (11.6-14.6); RBC Distribution Width SD 54.4 fl (35.1-43.9); Red Blood Count 4.22 M/mm3 (4.2-5.4); White Blood Count 6.7 K/mm3 (4.4-11.0)
[2022-11-23 06:28] LABS: Differential Indicated SCAN CRITERIA MET
[2022-11-23] MEDS: Pregabalin 75 MG Capsule PO (06:45)
[2022-11-23] MEDS: Levothyroxine 125 MCG Tablet PO (06:45)
[2022-11-23] MEDS: Liothyronine 5 MCG Tablet PO (06:46)
[2022-11-23] MEDS: 0.9% Saline Lock 10 ML Syringe IV (06:46)
[2022-11-23] MEDS: Methylprednisolone Sod Succ 40 MG/ML VIAL IV (06:46)
[2022-11-23] MEDS: Etodolac 300 MG Capsule PO (06:50)
[2022-11-23 07:00] LABS: Differential Comment SCANNED
[2022-11-23 07:10] LABS: Anion Gap 6 (5-15); BUN 13 mg/dL (7-18); BUN/Creat Ratio 22.8 RATIO (10-20); Calcium,Total 8.1 mg/dL (8.5-10.1); Chloride 102 mmol/L (98-107); Creatinine, Serum 0.57 mg/dL (0.55-1.02); EST Glomerular Filtration Rate 110 mL/min (>60); Est Glom Filt Rate - Afr Amer 133 mL/min (>60); Glucose 192 mg/dL (74-106); Potassium 3.3 mmol/L (3.5-5.1); Sodium Level 134 mmol/L (136-145); Thyroid Stim Hormone (TSH) 0.24 uIU/mL (0.358-3.74)
[2022-11-23] MEDS: Potassium Chloride Oral Tablet 20 MEQ 40 MEQ PO (08:10)
[2022-11-23] MEDS: Escitalopram Oxalate 10 MG Tablet PO (09:57)
[2022-11-23] MEDS: Cholecalciferol (VIT D3) 25 MCG TABLET (1,000 UNITS) PO (09:57)
[2022-11-23] MEDS: Magnesium Chloride 64 MG Delay Rel.Tablet 128 MG PO (09:57)
[2022-11-23] MEDS: QUEtiapine 100 MG Tablet PO (09:57)
[2022-11-23] MEDS: Memantine Hydrochloride 5 MG Tablet PO (09:57)
[2022-11-23] MEDS: amLODIPine 5 MG Tablet PO (09:57)
[2022-11-23] MEDS: Azithromycin 250 MG Tablet 500 MG PO (09:57)
[2022-11-23] MEDS: Calcitriol 0.25 MCG Capsule 0.5 MCG PO (09:58)
[2022-11-23] MEDS: Acyclovir 200 MG Capsule 400 MG PO (09:58)
[2022-11-23] MEDS: Enoxaparin 40 MG/0.4 ML Syringe SC (09:58)
[2022-11-23] MEDS: guaiFENesin/D-Methorphan TAB.SR.12H 2 TABLET PO (09:59)
[2022-11-23] MEDS: clonazePAM 1 MG Tablet PO (10:02)
--- NOTE | 2022-11-23 12:41 | PCM.DC ---
Discharge Instructions Diet Discharge Diet: No restrictions Activity Discharge Activity: Return to Normal Activity Weight Bearing Status: Full weight bearing Follow Up Care Test Results: Test results from this visit will be discussed in further detail at your follow-up appointment, if applicable. Discharge Plan Admission Admit Date/Time: 11/22/22 18:02 Primary Reason for Your Visit: rhinovirus bronchitis Attending Provider: James Lamar Primary Care Provider: Erica Richardson Consulting Providers: Bandar Chanel Discharge Orders/Prescriptions Prescriptions: New albuterol sulfate [Proventil HFA] 90 mcg/actuation HFA aerosol inhaler 2 puff inhalation Q6H PRN (Reason: shortness of breath or wheezing) Qty: 8.5 0RF Continued valacyclovir 1 gram tablet 1,000 mg PO DAILY potassium chloride 20 mEq tablet,ER particles/crystals 40 meq PO DAILY dexamethasone sodium phosphate 0.1 % drops 1 drp ophthalmic (eye) DAILY Rx Instructions: RIGHT EYE hydrocodone-acetaminophen 10-325 mg tablet 1 tab PO Q6H cholecalciferol (vitamin D3) 25 mcg (1,000 unit) capsule 25 mcg PO DAILY magnesium oxide 500 mg tablet 1,000 mg PO DAILY memantine 5 mg tablet 5 mg PO BID nabumetone 750 mg tablet 750 mg PO BID escitalopram oxalate [Lexapro] 10 mg tablet 10 mg PO DAILY quetiapine 100 mg tablet 100 mg PO DAILY liothyronine 5 mcg tablet 5 mcg PO DAILY amlodipine 5 mg tablet 5 mg PO DAILY meclizine 25 MG tablet 25 mg PO DAILY calcitriol 0.5 mcg capsule 0.5 mcg PO BID Rx Instructions: please discontinue any rx for calcitriol by an other doctors levothyroxine 125 mcg tablet 125 mcg PO DAILY clonazepam 1 mg tablet 1 mg PO BID Qty: 6 0RF pregabalin 75 mg capsule 75 mg PO TID Qty: 9 0RF Referrals / Follow Up: Erica Richardson DO [Primary Care Provider] - Within 2 Weeks Disposition Disposition (needs filled in before D/C Order can be placed): Home, Self Care
--- NOTE | 2022-11-23 12:54 | DS.PCM_ITS ---
Providers Date of Admission: 11/22/22 Date of Discharge: 11/23/22 Primary Care Physician: Dr. Erica Richardson DO Reason For Visit: HYPOXIA ON EXERTION Diagnosis Discharge Diagnosis (1) Hypoxia: Status: Acute Code(s): R09.02 - Hypoxemia (2) Dyspnea on exertion: Status: Acute Code(s): R06.09 - Other forms of dyspnea Plan 1. 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 #3 hypothyroidism #4 essential hypertension #5 chronic anxiety disorder Medications at Discharge Home Medications potassium chloride 20 mEq tablet,extended release(part/cryst) 40 meq PO DAILY SUPPLEMENT 08/01/20 valacyclovir 1 gram tablet 1,000 mg PO DAILY SHINGLES 08/01/20 dexamethasone sodium phosphate 0.1 % eye drops 1 drp ophthalmic (eye) DAILY glaucoma 03/09/21 hydrocodone 10 mg-acetaminophen 325 mg tablet 1 tab PO Q6H PAIN 06/11/21 clonazepam 1 mg tablet 1 mg PO BID #6 tabs 03/03/22 pregabalin 75 mg capsule 75 mg PO TID PAIN #9 caps 03/03/22 amlodipine 5 mg tablet 5 mg PO DAILY 11/22/22 calcitriol 0.5 mcg capsule 0.5 mcg PO BID 11/22/22 cholecalciferol (vitamin D3) 25 mcg (1,000 unit) capsule 25 mcg PO DAILY SUPPLEMENT 11/22/22 escitalopram oxalate 10 mg tablet (Lexapro) 10 mg PO DAILY ANXIETY 11/22/22 levothyroxine 125 mcg tablet 125 mcg PO DAILY 11/22/22 liothyronine 5 mcg tablet 5 mcg PO DAILY 11/22/22 magnesium oxide 500 mg tablet 1,000 mg PO DAILY SUPPLEMENT 11/22/22 meclizine 25 mg tablet 25 mg PO DAILY Dizziness 11/22/22 memantine 5 mg tablet 5 mg PO BID 11/22/22 nabumetone 750 mg tablet 750 mg PO BID 11/22/22 quetiapine 100 mg tablet 100 mg PO DAILY DEPRESSION 11/22/22 albuterol sulfate 90 mcg/actuation aerosol inhaler (Proventil HFA) 2 puff inhalation Q6H PRN shortness of breath or wheezing #8.5 grams 11/23/22 Hospital Course Operations None Procedures None Summary of Care Provided Minutes Spent on Discharge: 31 Hospital Course: 77-year-old white female was seen in the emergency room at hospital with complaints of cough, patient denied any shortness of breath. Work-up in the emergency room revealed the patient to have a pulse ox between 89 and 92% on room air at rest, patient was asymptomatic and did not complain of shortness of breath. CTA was ordered to rule out pulmonary emboli, there was no pulmonary emboli noted but there was some scarring of the left upper lobe-patient had had prior radiation to the area for breast cancer. Patient was ambulated in the emergency room and there was a oxygen desaturation noted down to 77%, despite this, patient was not symptomatic. Patient was agreeable for admission and she was placed in observation status on MedSurg 3, aerosol treatments were given and the patient was given IV Solu-Medrol. It was felt that she probably had COPD due to an extensive past history of smoking in the past but she had never been diagnosed with COPD by her physician. Patient's respiratory came back positive for rhinovirus, the following day, patient was not hypoxic at rest or during ambulation, it was felt she was stable for discharge home. On 11/23/2022, patient was seen and examined: On examination she appeared in good health and spirits, she does not appear to be in any distress. Vital signs as documented. Skin warm and dry and without overt rashes. Neck without JVD, thyroid appears normal, trachea is midline, neck is supple. Lungs clear, normal air movement was noted. Heart exam notable for regular rhythm, normal sounds and absence of murmurs, rubs or gallops. Abdomen unremarkable and without evidence of organomegaly, masses, or abdominal aortic enlargement, bowel sounds are present in all 4 quadrants, no abdominal tenderness was noted. Extremities nonedematous, no cyanosis was noted, no clubbing was noted. Neuro: Cranial nerves II through XII are grossly intact, no focal motor deficits were noted, sensation to light touch and pinprick is intact, motor exam 5/5 throughout. Psych: Patient is alert and oriented x3, she does not appear anxious or depressed, she does not appear agitated. Patient appears stable for discharge home on 11/23/2022, I made the decision to give the patient an inhaler for chronic usage on discharge from the hospital. Weight / BMI Weight Weight: 68.039 kg Body Mass Index (BMI) 24.2 ABG / Lab / Microbiology Data 11/23/22 05:48 11/23/22 05:48 Laboratory: Laboratory Results - last 24 hr 11/22/22 14:00: WBC 9.4, RBC 3.81 L, Hgb 11.0 L, Hct 35.1 L, MCV 92.1, MCH 28.9, MCHC 31.3 L, RDW Std Deviation 56.1 H, RDW Coeff of Felix 16.7 H, Plt Count 247, MPV 11.8, Immature Gran % (Auto) 0.400, Neut % (Auto) 64.5, Lymph % (Auto) 15.4 L, [place] % (Auto) 12.3 H, Eos % (Auto) 6.7 H, Baso % (Auto) 0.7, Absolute Neuts (auto) 6.1, Absolute Lymphs (auto) 1.44, Nucleated RBC % 0, Sodium 137, Potassium 4.1, Chloride 102, Carbon Dioxide 32.0, Anion Gap 3 L, BUN 16, Creatinine 0.57, Estim Creat Clear Calc 44.80, Est GFR (MDRD) Af Amer 132, Est GFR (MDRD) Non-Af 109, BUN/Creatinine Ratio 27.9 H, Glucose 82, Calcium 8.3 L, Troponin I High Sens 7, B-Natriuretic Peptide 198.9 H 11/23/22 05:48: WBC 6.7, RBC 4.22, Hgb 12.0, Hct 38.0, MCV 90.0, MCH 28.4, MCHC 31.6 L, RDW Std Deviation 54.4 H, RDW Coeff of Felix 16.4 H, Plt Count 281, MPV 12.1 H, Immature Gran % (Auto) 0.300, Neut % (Auto) 89.4 H, Lymph % (Auto) 8.7 L , [place] % (Auto) 1.1, Eos % (Auto) 0.0, Baso % (Auto) 0.5, Absolute Neuts (auto) 6.0, Absolute Lymphs (auto) 0.58 L, Nucleated RBC % 0, Differential Comment SCANNED, Sodium 134 L, Potassium 3.3 L, Chloride 102, Carbon Dioxide 26.0, Anion Gap 6, BUN 13, Creatinine 0.57, Estim Creat Clear Calc 44.80, Est GFR (MDRD) Af Amer 133, Est GFR (MDRD) Non-Af 110, BUN/Creatinine Ratio 22.8 H, Glucose 192 H, Calcium 8.1 L, TSH 0.24 L, Free T4 1.40 Microbiology: Microbiology 11/22/22 22:40 Mucosa - Nasopharyngeal Respiratory Panel (PCR) - Final Rhinovirus 11/22/22 13:35 Nasal Secretion SARS-CoV-2 Antigen (Rapid) - Final Radiography Diagnostic Testing: Radiology Impression Chest CTA 11/22/22 13:05 IMPRESSION: No evidence of pulmonary embolism. Scarring in the left upper lobe most likely secondary to prior radiation. Multiple ORIF of left rib fractures. Electronically Signed: Franki Glez MD at 15:33 EDT , D/C Instructions Discharge Diet: No restrictions Weight Bearing Status: Full weight bearing Meaningful Use Info Meaningful Use Diagnoses (Choose all that apply): None applicable Discharge Plan Admission Admit Date/Time: 11/22/22 18:02 Primary Reason for Your Visit: rhinovirus bronchitis Attending Provider: James Lamar Primary Care Provider: Erica Richardson Consulting Providers: Bandar Chanel Discharge Orders/Prescriptions Prescriptions: New albuterol sulfate [Proventil HFA] 90 mcg/actuation HFA aerosol inhaler 2 puff inhalation Q6H PRN (Reason: shortness of breath or wheezing) Qty: 8.5 0RF Continued valacyclovir 1 gram tablet 1,000 mg PO DAILY potassium chloride 20 mEq tablet,ER particles/crystals 40 meq PO DAILY dexamethasone sodium phosphate 0.1 % drops 1 drp ophthalmic (eye) DAILY Rx Instructions: RIGHT EYE hydrocodone-acetaminophen 10-325 mg tablet 1 tab PO Q6H cholecalciferol (vitamin D3) 25 mcg (1,000 unit) capsule 25 mcg PO DAILY magnesium oxide 500 mg tablet 1,000 mg PO DAILY memantine 5 mg tablet 5 mg PO BID nabumetone 750 mg tablet 750 mg PO BID escitalopram oxalate [Lexapro] 10 mg tablet 10 mg PO DAILY quetiapine 100 mg tablet 100 mg PO DAILY liothyronine 5 mcg tablet 5 mcg PO DAILY amlodipine 5 mg tablet 5 mg PO DAILY meclizine 25 MG tablet 25 mg PO DAILY calcitriol 0.5 mcg capsule 0.5 mcg PO BID Rx Instructions: please discontinue any rx for calcitriol by an other doctors levothyroxine 125 mcg tablet 125 mcg PO DAILY clonazepam 1 mg tablet 1 mg PO BID Qty: 6 0RF pregabalin 75 mg capsule 75 mg PO TID Qty: 9 0RF Referrals / Follow Up: Erica Richardson DO [Primary Care Provider] - Within 2 Weeks Disposition Disposition (needs filled in before D/C Order can be placed): Home, Self Care Charges/Coding Visit Charges Inpatient E&M: 58650 Disch Hosp >30min
[2022-11-23] MEDS: 0.9 % NaCl (Sterile) Posiflush 10 mL IV (13:26)
--- NOTE | 2022-11-23 13:52 | CASEMGMT ---
Pt did not qualify for home oxygen.
== END 2022-11-23 13:54 | disposition home health service (06) ==
LOC: ED 16:54 → MS3 17:13
PROVIDERS: Admitting Provider Internal Medicine; Emergency Provider Emergency Medicine; PCP Family Medicine; Visit Provider Internal Medicine
DX: J06.9 Acute upper respiratory infection, unspecified (principal); R09.02 Hypoxemia; F41.9 Anxiety disorder, unspecified; Z87.891 Personal history of nicotine dependence; I10 Essential (primary) hypertension; E78.00 Pure hypercholesterolemia, unspecified; E89.0 Postprocedural hypothyroidism; B97.89 Other viral agents as the cause of diseases classified elsewhere; Z79.899 Other long term (current) drug therapy; F32.A Depression, unspecified; K21.9 Gastro-esophageal reflux disease without esophagitis; Z79.890 Hormone replacement therapy; J98.4 Other disorders of lung; Z92.3 Personal history of irradiation
CPT/HCPCS: 36415; 71275; 80048; 83880; 84439; 84443; 84484; 85025; 87633; 87811; 93005; 94640; 94668; 96361; 96372; 96374; 96376; 97162; 97166; 99221; 99252; 99285; J7030; Q9967; A4216; G0378; G0463

== ENCOUNTER 2023-05-18 23:28 | Inpatient (IN) | payer MEDICARE, BC, SELFPAY ==
[2023-05-18 23:28] VITALS: BP 129/62; PULSE 113; RESP 23; TEMP 38.3; O2SAT 85; BMI 25.9
[2023-05-18 23:32] VITALS: O2SAT 94
[2023-05-18] MEDS: 0.9% Normal Saline (1000mL) 1,000 ML 999 ML IV (23:44)
[2023-05-18 23:52] VITALS: O2SAT 94
--- NOTE | 2023-05-18 23:55 | RAD_ITS ---
INDICATION: Hypoxia, fever and bilateral rales EXAMINATION/TECHNIQUE: X-RAY - XR Chest 1 View COMPARISON: 10/07/2021. FINDINGS: LINES/DEVICES: Right chest port is stable. LUNGS: No consolidation or evidence of an effusion. No evidence of edema or a pneumothorax. MEDIASTINUM AND CARDIOVASCULAR STRUCTURES: Cardiac silhouette is normal in size and contour. Mediastinum is unremarkable. BONES AND SOFT TISSUES: No acute abnormality. RAD/Chest 1 View (Portable) IMPRESSION: No evidence of acute cardiopulmonary disease. Electronically Signed: Eliel Christensen DO at 0:46 EST ,
[2023-05-18 23:59] LABS: Bacteria 0 SEEN /hpf (None Seen); Mucous, Urine 0 SEEN /hpf (<or=2+); Squamous Epithelial Cells - UA 0 SEEN /hpf (5-10)
[2023-05-19] VITALS (12 sets, daily range): BP systolic 99–127; BP diastolic 54–73; PULSE 76–103; RESP 16–24; TEMP 36.8–37.6; O2SAT 91–98; BMI 26.1; BMI 26.7
[2023-05-19] MEDS: Ceftriaxone 2 GM in 0.9% Normal Saline (50mL MB+) 50 ML IV (00:21)
--- NOTE | 2023-05-19 00:25 | EX.ED.DYSGE1 ---
HPI History of Present Illness Chief Complaint: Alt LOC Detail of Chief Complaint: Altered mental status Informant: EMS Onset/Context/Timing Onset: - (Unknown) Quality: Call to EMS was stroke. Patient is tachycardic, tachypneic, febrile and hy Location: Presents from home Current Severity: Unable to determine Maximum Severity: Unable to determine Worsened by: Unable to determine Relieved by: Unable to determine Associated Symptoms Associated Symptoms: Unable to determine Narrative Narrative: Patient is a 77-year-old woman. She has history of hypothyroidism, hypertension who presents by ambulance because of altered mental status. She is disoriented to place and time. She responds to her name. History is very limited. Paramedics states she was vomiting. This raises concern for aspiration in light of her vital signs. Review of prior records indicates patient does have history of alcohol use. She may possibly also have history of drug use. Prior similar symptoms: Yes (Most recent admission for hypoxia due to rhinovirus.) Recent Illness/Hospitalization: No [facility] Medical History (Updated 05/19/23 @ 02:[address] 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 procedure Hypothyroidism Melanoma Multiple rib fractures Opioid dependence Rheumatoid arthritis Skin cancer Subdural hematoma Tobacco abuse Vitamin D deficiency Home Medications potassium chloride 20 mEq tablet,extended release(part/cryst) 40 meq PO DAILY SUPPLEMENT 08/01/20 [History Last Taken 11/22/22] valacyclovir 1 gram tablet 1,000 mg PO DAILY SHINGLES 08/01/20 [History Last Taken 11/22/22] dexamethasone sodium phosphate 0.1 % eye drops 1 drp ophthalmic (eye) DAILY glaucoma 03/09/21 [History Last Taken 11/22/22] hydrocodone 10 mg-acetaminophen 325 mg tablet 1 tab PO Q6H PAIN 06/11/21 [History Last Taken 11/22/22] clonazepam 1 mg tablet 1 mg PO BID #6 tabs 03/03/22 [Rx Last Taken 11/22/22] pregabalin 75 mg capsule 75 mg PO TID PAIN #9 caps 03/03/22 [Rx Last Taken 11/22/22] amlodipine 5 mg tablet 5 mg PO DAILY 11/22/22 [History Last Taken 11/22/22] calcitriol 0.5 mcg capsule 0.5 mcg PO DAILY 11/22/22 [History Last Taken 11/22/22] cholecalciferol (vitamin D3) 25 mcg (1,000 unit) capsule 25 mcg PO DAILY SUPPLEMENT 11/22/22 [History Last Taken 11/22/22] escitalopram oxalate 10 mg tablet (Lexapro) 10 mg PO DAILY ANXIETY 11/22/22 [History Last Taken 11/22/22] magnesium oxide 500 mg PO DAILY SUPPLEMENT 11/22/22 [History Last Taken 11/22/22] meclizine 25 mg tablet 25 mg PO TID Dizziness 11/22/22 [History Last Taken 11/22/22] memantine 5 mg tablet 5 mg PO BID 11/22/22 [History Last Taken 11/22/22] nabumetone 750 mg tablet 750 mg PO BID 11/22/22 [History Last Taken 11/22/22] quetiapine 100 mg tablet 25 mg PO DAILY DEPRESSION 11/22/22 [History Last Taken 11/22/22] albuterol sulfate 90 mcg/actuation aerosol inhaler (Proventil HFA) 2 puff inhalation Q6H PRN shortness of breath or wheezing #8.5 grams 11/23/22 [Rx Last Taken Unknown] levothyroxine 125 mcg tablet 125 mcg PO DAILY #90 tabs 02/19/23 [Rx Last Taken Unknown] acetaminophen 500 mg capsule 500 mg PO BID 05/19/23 [History Last Taken Unknown] famotidine 20 mg tablet (Pepcid) 20 mg PO QHS 05/19/23 [History Last Taken Unknown] polyethylene glycol 3350 17 gram/dose oral powder (ClearLax) 17 g PO DAILY 05/19/23 [History Last Taken Unknown] pyridoxine (vitamin B6) 100 mg tablet 100 mg PO DAILY 05/19/23 [History Last Taken Unknown] Allergy/AdvReac Type Severity Reaction Status Date / Time bacitracin Allergy Unknown Unknown Verified 05/18/23 23:29 [From Neosporin ([id number])] neomycin Allergy Unknown Unknown Verified 05/18/23 23:29 [From Neosporin ([id number])] polymyxin B Allergy Unknown Unknown Verified 05/18/23 23:29 [From Neosporin ([id number])] Antihistamines - Alkylamine Allergy PT UNSURE Verified 05/18/23 23:29 OF REACTION diphenhydramine Allergy PT UNSURE Verified 05/18/23 23:29 [From Benadryl] OF REACTION Family History Unknown Thyroid disorder Cancer High cholesterol Arthritis Mother Cancer Diabetes Father , Father at the age of 50 from successful suicide attempt. Suicidal intent Other Alcohol abuse Anxiety Depression Heart disease Hypertension Mental disorder Parkinson disease Psychiatric care Surgical History H/O mastectomy H/O thyroidectomy Status post glaucoma surgery Social History (Updated 05/19/23 @ 01:[address] Aggie Bolton MD) household members: none Smoking Status: Former smoker second hand exposure: Yes alcohol intake: current alcohol intake frequency: 3 or more drinks per day substance use type: does not use ROS ROS ED Review of Systems ROS Unobtainable: due to mental status EXAM Physical Exam Const Vital Signs: 05/18/23 23:28 05/18/23 23:32 05/18/23 23:52 Temperature 101 F H Temperature Source Temporal Pulse Rate 113 H Respiratory Rate 23 H Blood Pressure 129/62 H Blood Pressure Mean 84 Pulse Ox 85 94 94 Oxygen Delivery Method Room Air Nasal Cannula Nasal Cannula Oxygen Flow Rate (L/min) 3 3 05/19/23 00:28 05/19/23 00:32 05/19/23 01:17 Temperature 99.6 F H 98.2 F Temperature Source Oral Oral Pulse Rate 103 H 100 95 Respiratory Rate 22 H 24 H 20 H Blood Pressure 115/60 115/60 99/55 L Blood Pressure Mean 78 78 69 Pulse Ox 95 95 95 Oxygen Delivery Method Nasal Cannula Nasal Cannula Nasal Cannula Oxygen Flow Rate (L/min) 3 3 3 05/19/23 01:46 Temperature 99.3 F H Temperature Source Pulse Rate 94 Respiratory Rate 20 H Blood Pressure 103/54 L Blood Pressure Mean 70 Pulse Ox 95 Oxygen Delivery Method Oxygen Flow Rate (L/min) Positive well nourished and well developed Constitutional Narrative: Patient was cyanotic when her pulse ox was 85%. She is leaning to the right. She is not awake nor is she alert. General Appearance ED: well developed, cyanotic and NAD; Negative for diaphoretic or pallor HEENT Reports dry mucous membranes HEENT Narrative: Head is atraumatic and normocephalic. Ears are normal. TMs are normal. Posterior pharynx out erythema exam. Nares patent. Mouth ED: Yes dry mucous membranes Mouth: dry mucous membranes Eyes PERRL and EOMs intact bilaterally General Eye ED: Negative for pale conjunctiva or scleral icterus Neck no lymphadenopathy, supple and no JVD Chest Wall inspection of chest normal and palpation of chest normal Resp No normal respiratory effort and No clear to auscultation bilaterally Auscultation: rales diffuse (Lower lung [place]st bilaterally) Cardio regular rhythm, S1 normal heart sound, S2 normal heart sound and no murmurs Rate: tachycardic GI normal to inspection, nondistended, normoactive bowel sounds, non-tender and non-distended Extremity normal to inspection Extremity Narrative: There is no acral cyanosis. There is no clubbing. Neuro No oriented x3 Sensorium / Orientation: Negative for alert Psych Psych Narrative: Unable to assess Skin no rashes or lesions noted, no wounds and No skin turgor normal General Skin Exam: Negative for jaundice or pallor Sepsis Attestation Sepsis Alert: Yes Sepsis Attestation: Agree w/Sepsis Date exam was performed: 05/18/23 Time exam was performed: 23:35 Possible Source of Sepsis: Pulmonary MDM MDM MDM Narrative Medical decision making narrative: Sepsis order set and treatment was initiated for community-acquired pneumonia. Since patient has bilateral rales and is not clinically fluid overloaded suspect she has pneumonia. Would not anticipate rales bilaterally this is due to aspiration. COVID influenza RSV panel was ordered. She did receive a fluid bolus. Appropriate blood work was obtained to assess for endorgan dysfunction. Since her chest x-ray was unremarkable added a talk screen and alcohol level in light of her past history of benzodiazepine and alcohol use. History & Record Review Additional record(s) reviewed:: Prior inpatient record (Admission for hypoxia due to rhinovirus several months ago.), Prior ED visit (For multiple different things which included humeral fracture, upper respiratory infection etc.) and Prior labs Lab Data Attestation: I reviewed the patient's lab results. Lab results narrative: White count is elevated 15-200 with shift. There is 90% segs. Is no bandemia. Patient does have evidence of anemia with an H&H 11.9 and 36.7 with normal indices. Competence of metabolic panel reveals an elevated creatinine from baseline, 1.2 to with an estimated GFR of 46. Glucose is slightly elevated 134 with a normal CO2 and anion gap. Total bili slightly elevated. Transaminases are normal. Urinalysis is remarkable for ketones, occult blood, nitrites and leukoesterase on macro. There is 10-25 RBCs with greater than 100 WBCs; however, there are no bacteria seen. Culture was sent. Lactate is normal. Tox is positive for opiates. Alcohol was not detected. Rapid antigen for COVID, influenza and RSV were negative. Labs: Laboratory Results - last 24 hr 05/18/23 05/19/23 23:50 00:34 WBC 15.2 H RBC 3.75 L Hgb 11.9 L Hct 36.7 L MCV 97.9 MCH 31.7 MCHC 32.4 RDW Std Deviation 54.4 H RDW Coeff of Felix 15.1 H Plt Count 199 MPV 12.5 H Immature Gran % (Auto) 0.700 Neut % (Auto) 89.8 H Lymph % (Auto) 6.3 L [place] % (Auto) 2.4 Eos % (Auto) 0.3 Baso % (Auto) 0.5 Absolute Neuts (auto) 13.7 H Absolute Lymphs (auto) 0.96 Nucleated RBC % 0 Sodium 139 Potassium 3.8 Chloride 109 H Carbon Dioxide 24.0 Anion Gap 6 BUN 23 H Creatinine 1.22 H Estim Creat Clear Calc 40.12 Est GFR (MDRD) Af Amer 55 L Est GFR (MDRD) Non-Af 46 L BUN/Creatinine Ratio 18.9 Glucose 134 H Lactic Acid 1.7 Calcium 8.6 Total Bilirubin 1.40 H AST 22 ALT 17 Alkaline Phosphatase 116 Total Protein 7.5 Albumin 3.2 Globulin 4.3 H Albumin/Globulin Ratio 0.7 L Urine Color Yellow Urine Clarity Cloudy Urine pH 6.0 Ur Specific [place] 1.010 Urine Protein 100 H Urine Glucose (UA) Normal Urine Ketones 5 H Urine Occult Blood 50 H Urine Nitrite Positive H Urine Bilirubin Negative Urine Urobilinogen Normal Ur Leukocyte Esterase 500 H Urine RBC 10-25 SEEN Urine WBC >100 SEEN Ur Squamous Epith Cells 0 SEEN Urine Bacteria 0 SEEN Urine Mucus 0 SEEN Urine Opiates Screen POSITIVE H Urine Methadone Screen NEGATIVE Ur Barbiturates Screen NEGATIVE Ur Phencyclidine Scrn NEGATIVE Ur Amphetamines Screen NEGATIVE MDMA (Ecstasy) Screen NEGATIVE U Benzodiazepines Scrn NEGATIVE Urine Cocaine Screen NEGATIVE U Cannabinoids Screen NEGATIVE Ur Drug Screen Comment Ethyl Alcohol < 3.0 Radiography Chest X-Ray - ED: 1 View and Read by ED Physician (Patient is rotated and tilted to the right. Hardware noted for prior rib fractures on the left. Cardiac size and silhouette are normal. Mediastinum is unremarkable. There is no effusion or pneumothorax noted. There is no acute abnormality of the osseous structures. There is independent reviewe) Diagnostic Testing: Clinical Impression(s) from Imaging Studies Chest X-Ray 05/18/23 23:55 IMPRESSION: No evidence of acute cardiopulmonary disease. Electronically Signed: Eliel Christensen, DO at 0:46 EST , Radiology report was reviewed. Rhythm Strip Rhythm Strip: Sinus Tach Rate: 119 EKG Initial EKG: Attestation: I personally reviewed and interpreted this EKG as follows: Interpretation: Sinus Tachycardia (Rate is 111. MT interval is 114 ms. Cures duration 70 ms. QT duration is 298 ms. [place] is normal. Computer is reading ST-T wave abnormality which is in all likelihood artifact.) Management Discussion w/another healthcare provider: Hospitalist (Hospitalist was paged to discuss patient's history physical and admission. She was informed to the patient earlier however laboratory results had not returned.) Treatment and Re-Evaluation :: Patient received fluid bolus since there is been a drop in blood pressure. Send [id number] indicated blood pressure 99/55, pulse of 95, respiration of 20 and temperature of 98.2. In light of the drop in pressure will administer additional fluid bolus since there is no history of congestive heart failure. Patient's blood pressure did respond to IV fluids. Critical Care Time Critical Care Time: Yes Critical care time (excluding procedures): 30-74 minutes (22), Including time spent: (History, physical, documentation, review of prior records, independent interpretation of laboratory results and assessed [place] with treatment for hypertension), Discussing w/Patient &/or Family/[employer] Production Manager, Discussing w/Consultants and Arranging Admission or Transfer Discharge Plan Dx/Rx/DC Orders Clinical Impression: Acute hypoxic respiratory failure, Pyuria, SIRS (systemic inflammatory response syndrome), Encephalopathy due to infection, Ketosis, Acute hypotension, Creatinine elevation Disposition Disposition: Acute Care Hospital [facility]
[2023-05-19 00:33] LABS: International Normalized Ratio 1.3
[2023-05-19 00:34] LABS: Partial Thromboplast Time 30.3 Seconds (24.1-36.2)
[2023-05-19 00:39] LABS: Absolute Lymphocyte Count 0.96 X10^3/uL (0.83-4.51); Absolute Neutrophil Count 13.7 X10^3/uL (2.0-7.7); Basophil# 0.07 X10^3/uL; Basophil% 0.5 % (0-1); Eosinophil# 0.05 X10^3/uL; Eosinophils% 0.3 % (0-5); Hematocrit 36.7 % (37-47); Hemoglobin 11.9 g/dL (12.0-15.0); Lymphocyte # 0.96 X10^3/ul (0.83-4.51); Lymphocyte % 6.3 % (19-41); Mean Corp Hgb Conc 32.4 g/dL (32-36); Mean Corpuscular Hgb 31.7 pg (27.0-32.0); Mean Corpuscular Volume 97.9 fL (81-99); Mean Platelet Vol. 12.5 fl (6.2-12.0); Monocyte# 0.36 X10^3/uL; Monocyte% 2.4 % (0-10); NRBC Flagged by Analyzer 0 % (0-5); Neutrophil # 13.67 X10^3/uL (2.7-7.7); Neutrophil % 89.8 % (47-70); Platelet Count 199 K/mm3 (150-450); RBC Distribution Width CV 15.1 % (11.6-14.6); RBC Distribution Width SD 54.4 fl (35.1-43.9); Red Blood Count 3.75 M/mm3 (4.2-5.4); White Blood Count 15.2 K/mm3 (4.4-11.0)
[2023-05-19 00:41] LABS: Color, Urine Yellow (Yellow); Glucose, Dipstick Normal (Normal); Ketone-Dipstick 5 mg/dl (Negative); Leukocyte Esterase-Dipstick 500 /ul (Negative); Nitrite-Dipstick Positive (Negative); Occult Blood-Urine 50 /ul (Negative); Protein-Dipstick 100 mg/dl (Negative); Urine Bilirubin Dipstick Negative (Negative); Urine Clarity Cloudy (Clear); Urine Urobilinogen Normal (Normal)
[2023-05-19 00:46] LABS: ALB/GLOB Ratio 0.7 RATIO (0.9-2.4); AST(SGOT) 22 U/L (15-37); Alanine Aminotransfer ALT/SGPT 17 U/L (13-56); Albumin, Serum 3.2 g/dL (3.2-5.0); Alkaline Phosphatase 116 U/L (45-117); Anion Gap 6 (5-15); BUN 23 mg/dL (7-18); BUN/Creat Ratio 18.9 RATIO (10-20); Calcium,Total 8.6 mg/dL (8.5-10.1); Chloride 109 mmol/L (98-107); Creatinine, Serum 1.22 mg/dL (0.55-1.02); EST Glomerular Filtration Rate 46 mL/min (>60); Est Glom Filt Rate - Afr Amer 55 mL/min (>60); Estimated Creatinine Clearance 40.12 ml/min; Globulin 4.3 g/dL (2.2-4.2); Glucose 134 mg/dL (74-106); Potassium 3.8 mmol/L (3.5-5.1); Protein, Total 7.5 g/dL (6.4-8.2); Sodium Level 139 mmol/L (136-145)
[2023-05-19 00:53] LABS: Red Blood Cells-Urine 10-25 SEEN /hpf (0-5); White Blood Cells >100 SEEN /hpf (0-5)
[2023-05-19 00:58] LABS: Lactic Acid 1.7 mmol/L (0.4-1.9)
[2023-05-19] MEDS: Azithromycin 500 MG in Dextrose 5%-Water (250mL Bag) 250 ML 250 MG IV (01:16)
[2023-05-19 01:25] LABS: Alcohol, Blood (Medical)-Serum < 3.0 mg/dL
[2023-05-19 01:25] LABS: Amphetamine Urine VISTA NEGATIVE (<1000 ng/mL); Barbiturate Urine VISTA NEGATIVE (< 200 ng/mL); Benzodiazepine Urine VISTA NEGATIVE (< 200 ng/mL); Cocaine Urine VISTA NEGATIVE (< 300 ng/mL); Ecstacy Urine VISTA NEGATIVE (< 500 ng/mL); Methadone Urine VISTA NEGATIVE (< 300 ng/mL); PCP Urine VISTA NEGATIVE (< 25 ng/mL); THC Urine VISTA NEGATIVE (< 50 ng/mL); Vista UDS pH Range 5
--- NOTE | 2023-05-19 01:35 | PCM.HP.STD ---
HPI - General General Date of Admission: 05/19/23 Date of Service: 05/19/23 Chief Complaint: Encephalopathy. HPI Narrative The patient is a 74 y/o F w/ PMHx: Dementia unclear type with unclear behavioral disturbance history, Chronic anemia, Hx Breast CA s/p mastectomy, HTN, HLD, Rheumatoid arthritis, Hypothyroidism, Anxiety and Depression, EtOH abuse/Polysubstance dependency including BZD/opiates per review of prior records who presents to the [facility] ED on 05/19/23 with significant encephalopathy with limited responses to staff initially with noted emesis on route with patient initially significantly tachypneic, tachycardic and febrile with initial evaluation per ED physician with significant rales bilaterally however patient quickly improved and became more alert with denied recent history of fever, chills, upper respiratory type infections, nausea, vomiting or diarrhea or any urinary type symptoms. Patient denies any recent ill contacts. Patient caregiver present notes this is her baseline currently she appears much better. Workup in the ED included initially T101, heart rate 113, BP 129/62, respiratory rate 23, initially 85% on room air with most recent vital signs improved with T98.2, heart rate 95, BP 99/55, respiratory rate 20, 95% on 3 L nasal cannula, CBC with WBC 15.2, hemoglobin 1.9, MCV 97.9, platelet 199 with left shift, CMP with chloride 109, BUN/creatinine 23/1.22, glucose 134, lactic acid 1.7, hepatic profile with T. bili 1.40 otherwise unremarkable, urinalysis with noted cloudy urine, protein 100, ketone 5, occult blood 50, positive nitrite, leukocyte esterase 500, urine RBCs 10-25, urine WBCs greater than 100, UDS pending upon evaluation of patient, acetaminophen level, urine opiate screen, urine methadone screen, ethyl alcohol levels pending upon evaluation, chest x-ray with no acute cardiopulmonary findings, urine culture pending per ED, blood culture x 2 pending per ED, rapid SARS COVID/influenza/RSV PCR pending upon requested evaluation of patient, EKG with sinus tachycardia. In the ED patient ministered 1 L normal saline as well as IV Rocephin and azithromycin 500 mg IV x 1. [facility] Medical History (Updated 05/19/23 @ 01:[address] 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 procedure Hypothyroidism Melanoma Multiple rib fractures Opioid dependence Rheumatoid arthritis Skin cancer Subdural hematoma Tobacco abuse Vitamin D deficiency Home Medications potassium chloride 20 mEq tablet,extended release(part/cryst) 40 meq PO DAILY SUPPLEMENT 08/01/20 [History Last Taken 11/22/22] valacyclovir 1 gram tablet 1,000 mg PO DAILY SHINGLES 08/01/20 [History Last Taken 11/22/22] dexamethasone sodium phosphate 0.1 % eye drops 1 drp ophthalmic (eye) DAILY glaucoma 03/09/21 [History Last Taken 11/22/22] hydrocodone 10 mg-acetaminophen 325 mg tablet 1 tab PO Q6H PAIN 06/11/21 [History Last Taken 11/22/22] clonazepam 1 mg tablet 1 mg PO BID #6 tabs 03/03/22 [Rx Last Taken 11/22/22] pregabalin 75 mg capsule 75 mg PO TID PAIN #9 caps 03/03/22 [Rx Last Taken 11/22/22] amlodipine 5 mg tablet 5 mg PO DAILY 11/22/22 [History Last Taken 11/22/22] calcitriol 0.5 mcg capsule 0.5 mcg PO DAILY 11/22/22 [History Last Taken 11/22/22] cholecalciferol (vitamin D3) 25 mcg (1,000 unit) capsule 25 mcg PO DAILY SUPPLEMENT 11/22/22 [History Last Taken 11/22/22] escitalopram oxalate 10 mg tablet (Lexapro) 10 mg PO DAILY ANXIETY 11/22/22 [History Last Taken 11/22/22] magnesium oxide 500 mg PO DAILY SUPPLEMENT 11/22/22 [History Last Taken 11/22/22] meclizine 25 mg tablet 25 mg PO TID Dizziness 11/22/22 [History Last Taken 11/22/22] memantine 5 mg tablet 5 mg PO BID 11/22/22 [History Last Taken 11/22/22] nabumetone 750 mg tablet 750 mg PO BID 11/22/22 [History Last Taken 11/22/22] quetiapine 100 mg tablet 25 mg PO DAILY DEPRESSION 11/22/22 [History Last Taken 11/22/22] albuterol sulfate 90 mcg/actuation aerosol inhaler (Proventil HFA) 2 puff inhalation Q6H PRN shortness of breath or wheezing #8.5 grams 11/23/22 [Rx Last Taken Unknown] levothyroxine 125 mcg tablet 125 mcg PO DAILY #90 tabs 02/19/23 [Rx Last Taken Unknown] acetaminophen 500 mg capsule 500 mg PO BID 05/19/23 [History Last Taken Unknown] famotidine 20 mg tablet (Pepcid) 20 mg PO QHS 05/19/23 [History Last Taken Unknown] polyethylene glycol 3350 17 gram/dose oral powder (ClearLax) 17 g PO DAILY 05/19/23 [History Last Taken Unknown] pyridoxine (vitamin B6) 100 mg tablet 100 mg PO DAILY 05/19/23 [History Last Taken Unknown] Allergy/AdvReac Type Severity Reaction Status Date / Time bacitracin Allergy Unknown Unknown Verified 05/18/23 23:29 [From Neosporin ([id number])] neomycin Allergy Unknown Unknown Verified 05/18/23 23:29 [From Neosporin ([id number])] polymyxin B Allergy Unknown Unknown Verified 05/18/23 23:29 [From Neosporin ([id number])] Antihistamines - Alkylamine Allergy PT UNSURE Verified 05/18/23 23:29 OF REACTION diphenhydramine Allergy PT UNSURE Verified 05/18/23 23:29 [From Benadryl] OF REACTION Family History Unknown Thyroid disorder Cancer High cholesterol Arthritis Mother Cancer Diabetes Father , Father at the age of 50 from successful suicide attempt. Suicidal intent Other Alcohol abuse Anxiety Depression Heart disease Hypertension Mental disorder Parkinson disease Psychiatric care Surgical History H/O mastectomy H/O thyroidectomy Status post glaucoma surgery Social History (Updated 05/19/23 @ 01:[address] Aggie Bolton MD) household members: none Smoking Status: Former smoker second hand exposure: Yes alcohol intake: current alcohol intake frequency: 3 or more drinks per day substance use type: does not use ROS Review of Systems ROS Unobtainable: due to encephalopathy Vital Signs Vital Signs Vital Signs: 05/18/23 23:28 05/18/23 23:32 05/18/23 23:52 Temperature 101 F H Temperature Source Temporal Pulse Rate 113 H Respiratory Rate 23 H Blood Pressure 129/62 H Blood Pressure Mean 84 Pulse Ox 85 94 94 Oxygen Delivery Method Room Air Nasal Cannula Nasal Cannula Oxygen Flow Rate (L/min) 3 3 05/19/23 00:28 05/19/23 00:32 05/19/23 01:17 Temperature 99.6 F H 98.2 F Temperature Source Oral Oral Pulse Rate 103 H 100 95 Respiratory Rate 22 H 24 H 20 H Blood Pressure 115/60 115/60 99/55 L Blood Pressure Mean 78 78 69 Pulse Ox 95 95 95 Oxygen Delivery Method Nasal Cannula Nasal Cannula Nasal Cannula Oxygen Flow Rate (L/min) 3 3 3 Weight Weight: 160 lb 14.999 oz Body Mass Index (BMI) 25.9 Physical Exam Narrative Physical Examination: General: Arousing, notably improved since initial ED arrival, now alert to self and recent events, remains cooperative, seated upright in ED bed, no acute distress, vital signs improving. Skin: normal color, turgor, no icterus, cyanosis except occasional staged ecchymoses. HEENT: AT/NC, EOMI, PERRLA, dry MM, no carotid bruits or JVD noted, chronic right head tilt. Lungs: Diminished breath sounds, greater bases, moderate decrease BL bases, previous significant rales bilaterally reported per ED physician upon arrival, currently improved, no obvious rhonchi or wheezing. Heart: Mildly tachycardic with regular rhythm; no gallop, rub audible. Abdomen: soft, overweight, NTTP, ND, distant normal BS, no appreciated HSM. Extremities: no cyanosis, no clubbing, mild bilateral pedal to distal lucas edema. Neurological: patient improving, currently awakens and more alert, oriented as noted; cognitive function improving, suspect nearing baseline; pupils equally reactive to light and accomodation; cranial nerves grossly normal, moving all 4 extremities, no focal deficits, strength moderately to severely globally decreased secondary to acute presentation. Psychiatric: affect appears fatigued otherwise normal, no acute evidence of depressive or anxiety feelings but does have underlying history. Results Lab / Micro Data 05/18/23 23:50 05/18/23 23:50 Labs: Laboratory Results - last 24 hr 05/18/23 23:50: WBC 15.2 H, RBC 3.75 L, Hgb 11.9 L, Hct 36.7 L, MCV 97.9, MCH 31.7, MCHC 32.4, RDW Std Deviation 54.4 H, RDW Coeff of Felix 15.1 H, Plt Count 199, MPV 12.5 H, Immature Gran % (Auto) 0.700, Neut % (Auto) 89.8 H, Lymph % (Auto) 6.3 L, Jones % (Auto) 2.4, Eos % (Auto) 0.3, Baso % (Auto) 0.5, Absolute Neuts (auto) 13.7 H, Absolute Lymphs (auto) 0.96, Nucleated RBC % 0, Sodium 139, Potassium 3.8, Chloride 109 H, Carbon Dioxide 24.0, Anion Gap 6, BUN 23 H, Creatinine 1.22 H, Estim Creat Clear Calc 40.12, Est GFR (MDRD) Af Amer 55 L, Est GFR (MDRD) Non-Af 46 L, BUN/Creatinine Ratio 18.9, Glucose 134 H, Lactic Acid 1.7, Calcium 8.6, Total Bilirubin 1.40 H, AST 22, ALT 17, Alkaline Phosphatase 116, Total Protein 7.5, Albumin 3.2, Globulin 4.3 H, Albumin/Globulin Ratio 0.7 L, Urine Color Yellow, Urine Clarity Cloudy, Urine pH 6.0, Ur Specific Denhoff 1.010, Urine Protein 100 H, Urine Glucose (UA) Normal, Urine Ketones 5 H, Urine Occult Blood 50 H, Urine Nitrite Positive H, Urine Bilirubin Negative, Urine Urobilinogen Normal, Ur Leukocyte Esterase 500 H, Urine RBC 10-25 SEEN, Urine WBC >100 SEEN, Ur Squamous Epith Cells 0 SEEN, Urine Bacteria 0 SEEN, Urine Mucus 0 SEEN, Urine Opiates Screen POSITIVE H, Urine Methadone Screen NEGATIVE, Ur Barbiturates Screen NEGATIVE, Ur Phencyclidine Scrn NEGATIVE, Ur Amphetamines Screen NEGATIVE, MDMA (Ecstasy) Screen NEGATIVE, U Benzodiazepines Scrn NEGATIVE, Urine Cocaine Screen NEGATIVE, U Cannabinoids Screen NEGATIVE, Ur Drug Screen Comment 05/19/23 00:34: Ethyl Alcohol < 3.0 Rhythm Strip Rhythm Strip: Sinus Tach Rate: 119 Imaging Radiology Impression Chest X-Ray 05/18/23 23:55 IMPRESSION: No evidence of acute cardiopulmonary disease. Electronically Signed: Eliel Christensen DO at 0:46 EST , Assessment & Plan Assessment/Plan (1) Encephalopathy due to infection: PLAN: Plan The patient is a 74 y/o F w/ PMHx: Dementia unclear type with unclear behavioral disturbance history, Chronic anemia, Hx Breast CA s/p mastectomy, HTN, HLD, Rheumatoid arthritis, Hypothyroidism, Anxiety and Depression, EtOH abuse/Polysubstance dependency including BZD/opiates per review of prior records who presents to the [facility] ED on 05/19/23 with significant encephalopathy with limited responses to staff initially with noted emesis on route with patient initially significantly tachypneic, tachycardic and febrile with initial evaluation per ED physician with significant rales bilaterally however patient quickly improved and became more alert with denied recent history of fever, chills, upper respiratory type infections, nausea, vomiting or diarrhea or any urinary type symptoms. #1. Acute transient encephalopathy suspected multifactorial, secondary to acute hypoxia suspected secondary to aspiration event in addition to acute pyuria, complicated urinary tract infection: Will admit to [facility] given stable VS, maintain on oxygen with wean as tolerated to room air, continue ATC budesonide, PRN albuterol, maintain on IV Zosyn given aspiration concerns and UTI concerns, will plan repeat CXR in AM, HOB, IS parameters, UCx pending, PT/OT/CM consulted for discharge planning. #2. Acute kidney injury: Secondary to acute presentation as noted. Admission BUN/Cr 23/1.22, prior baseline creatinine noted to be primarily 0.5. Will judiciously hydrate, hold nephrotoxic medications and repeat chemistry in AM. If no improvement would plan FeNa and renal ultrasound assessment. #3. Hyperglycemia: No diabetic history per review of chart, admission glucose 134, possibly stress response, continue to trend and if further elevated low threshold to obtain hemoglobin A1c. #4. EtOH Abuse: Noted during prior admissions and patient has had significantly elevated alcohol levels previously, frequently denies but family has mentioned she is an alcoholic. Ethyl alcohol level pending as well as UDS upon presentation. Will maintain on CIWA protocol, MVI, thiamine and folic acid. Case management consulted. #5. Polysubstance abuse: Patient with previous admissions with positive opiate and also on a significant amount of benzodiazepines with also alcohol abuse, urine drug screen pending upon evaluation of patient. #6. Dementia, unclear type with unclear behavioral disturbance history: Complicates presentation, will continue patient home memantine home regimen, maintain on fall and aspiration precautions, therapies as well as case management consulted as noted. #7. Anxiety and depression: We will continue patient home BuSpar, clonazepam regimen to avoid any withdrawal however if any concerns for sedation low threshold to hold, continue patient home Seroquel low-dose regimen concurrently. #8. Chronic normocytic anemia: Admission hemoglobin 11.9, MCV 97.9, baseline hemoglobin similar, continue to trend. #9. Hypothyroidism: Will continue patient on levothyroxine regimen #10. GERD: We will continue patient home famotidine regimen. #11. Hypertension: BP low upon ED initial presentation and evaluation, will temporally hold amlodipine, resume once appropriate. #12. Hyperlipidemia: Not on statin per current regimen listed, defer to outpatient. #13. Questionable history of rheumatoid arthritis: Not on regimen, encourage continued outpatient follow-up with rheumatology as needed. #14. DVT prophylaxis: Heparin. Charges/Coding Visit Charges Inpatient E&M: 22140 Init Hosp L3
[2023-05-19] MEDS: 0.9% Normal Saline (1000mL) 1,000 ML 1000 ML IV (01:45)
[2023-05-19 02:28] LABS: Acetaminophen (Tylenol) Level < 10.0 ug/mL (10.0-30.0)
[2023-05-19 02:58] LABS: Magnesium 1.9 mg/dL (1.6-2.6); Phosphorus 2.6 mg/dL (2.5-4.9)
[2023-05-19] MEDS: 0.9% Normal Saline (1000mL) 1,000 ML 100 ML IV (04:09)
--- NOTE | 2023-05-19 06:07 | RAD_ITS ---
INDICATION: Dyspnea. EXAMINATION/TECHNIQUE: X-RAY - XR Chest 1 View COMPARISON: AprilOctober 07, 2021 and 2023 at 12:05 AM FINDINGS: LINES/DEVICES: There is a right-sided central venous catheter in place terminating within the expected region of the superior vena cava. There are plate and screw fixation devices within multiple left ribs. There is a plate and screw fixation device within the right proximal humerus. LUNGS: No consolidation, edema or effusion. No pneumothorax. MEDIASTINUM AND CARDIOVASCULAR STRUCTURES: There is cardiomegaly. Central airways and mediastinal contour are unremarkable. BONES AND SOFT TISSUES: Unremarkable. RAD/Chest 1 View (Portable) IMPRESSION: Cardiomegaly. Electronically Signed: Arpita Belcher MD at 9:59 EST ,
[2023-05-19 06:22] LABS: Absolute Lymphocyte Count 1.21 X10^3/uL (0.83-4.51); Basophil# 0.07 X10^3/uL; Basophil% 0.3 % (0-1); Eosinophil# 0.13 X10^3/uL; Eosinophils% 0.5 % (0-5); Hemoglobin 10.1 g/dL (12.0-15.0); Lymphocyte # 1.21 X10^3/ul (0.83-4.51); Lymphocyte % 4.6 % (19-41); Mean Corp Hgb Conc 31.6 g/dL (32-36); Mean Corpuscular Hgb 31.2 pg (27.0-32.0); Mean Corpuscular Volume 98.8 fL (81-99); Mean Platelet Vol. 12.1 fl (6.2-12.0); Monocyte# 1.75 X10^3/uL; Monocyte% 6.6 % (0-10); NRBC Flagged by Analyzer 0 % (0-5); Neutrophil # 22.98 X10^3/uL (2.7-7.7); Neutrophil % 86.4 % (47-70); POSITIVE DIFFERENTIAL YES; Platelet Count 183 K/mm3 (150-450); RBC Distribution Width CV 15.2 % (11.6-14.6); RBC Distribution Width SD 55.2 fl (35.1-43.9); Red Blood Count 3.24 M/mm3 (4.2-5.4); White Blood Count 26.6 K/mm3 (4.4-11.0)
[2023-05-19 06:31] LABS: Differential Indicated SCAN CRITERIA MET
[2023-05-19] MEDS: Piperacil/Tazobactam 3.375 GM in 0.9% Normal Saline (50mL MB+) 50 ML IV ×3 (06:38→21:18)
[2023-05-19] MEDS: Pregabalin 75 MG Capsule PO ×3 (06:45→21:27)
[2023-05-19] MEDS: Levothyroxine 125 MCG Tablet PO (06:45)
[2023-05-19 06:49] LABS: ALB/GLOB Ratio 0.7 RATIO (0.9-2.4); AST(SGOT) 19 U/L (15-37); Alanine Aminotransfer ALT/SGPT 15 U/L (13-56); Albumin, Serum 2.6 g/dL (3.2-5.0); Alkaline Phosphatase 94 U/L (45-117); Anion Gap 4 (5-15); BUN 21 mg/dL (7-18); BUN/Creat Ratio 21.1 RATIO (10-20); Calcium,Total 7.6 mg/dL (8.5-10.1); Chloride 112 mmol/L (98-107); EST Glomerular Filtration Rate 58 mL/min (>60); Est Glom Filt Rate - Afr Amer 70 mL/min (>60); Estimated Creatinine Clearance 49.61 ml/min; Globulin 3.8 g/dL (2.2-4.2); Glucose 211 mg/dL (74-106); Potassium 3.5 mmol/L (3.5-5.1); Protein, Total 6.4 g/dL (6.4-8.2); Sodium Level 140 mmol/L (136-145)
--- NOTE | 2023-05-19 07:06 | PCM.PN.BLA ---
Progress Note Patient is a 77-year-old lady admitted with acute metabolic encephalopathy secondary to acute kidney injury, acute cystitis as well as suspected aspiration pneumonia. Patient admitted to regular nursing floor for subsequent management Patient seen and examined, initial assessment including history and physical diagnostic data and management orders reviewed will follow.
[2023-05-19] MEDS: Budesonide Respules 0.5 MG/2 ML AMPUL.NEB. INHALATION ×2 (07:11→20:06)
[2023-05-19 07:45] LABS: Differential Comment SCANNED
[2023-05-19] MEDS: Thiamine Hydrochloride 100 MG Tablet PO (09:50)
[2023-05-19] MEDS: Menthol/Lanolin/Calamine/Znox 113 GM Tube 1 APPLIC TOPICAL ×3 (09:50→18:23)
[2023-05-19] MEDS: Folic Acid 1 MG Tablet PO (09:50)
[2023-05-19] MEDS: Heparin Injection (Vial) 5,000 UNIT/ML VIAL 5000 UNIT SC ×2 (09:51→21:22)
[2023-05-19] MEDS: Magnesium Chloride 64 MG Delay Rel.Tablet 128 MG PO (09:52)
[2023-05-19] MEDS: Potassium Chloride Oral Tablet 20 MEQ 40 MEQ PO (09:52)
[2023-05-19] MEDS: Calcitriol 0.25 MCG Capsule 0.5 MCG PO (09:53)
[2023-05-19] MEDS: Memantine Hydrochloride 5 MG Tablet PO ×2 (09:53→21:20)
[2023-05-19] MEDS: QUEtiapine 25 MG Tablet PO (09:53)
[2023-05-19] MEDS: Pyridoxine HCl 100 MG Tablet PO (09:54)
[2023-05-19] MEDS: Escitalopram Oxalate 10 MG Tablet PO (09:54)
[2023-05-19] MEDS: Polyethylene Glycol 3350 17 GM PACKET PO (09:55)
[2023-05-19] MEDS: Acyclovir 200 MG Capsule 400 MG PO ×2 (09:55→21:19)
[2023-05-19] MEDS: clonazePAM 1 MG Tablet PO ×2 (09:59→21:27)
[2023-05-19] MEDS: Etodolac 300 MG Capsule PO ×2 (10:14→21:21)
[2023-05-19] MEDS: Famotidine 20 MG Tablet PO (21:19)
[2023-05-20] VITALS (9 sets, daily range): BP systolic 118–165; BP diastolic 63–84; PULSE 79–93; RESP 16–22; TEMP 36.6–37.6; O2SAT 92–95; BMI 26.9
[2023-05-20] MEDS: Levothyroxine 125 MCG Tablet PO (05:26)
[2023-05-20] MEDS: Pregabalin 75 MG Capsule PO ×3 (05:26→21:19)
[2023-05-20] MEDS: Piperacil/Tazobactam 3.375 GM in 0.9% Normal Saline (50mL MB+) 50 ML IV ×3 (05:26→21:16)
[2023-05-20] MEDS: 0.9% Saline Lock 10 ML Syringe IV (05:27)
[2023-05-20 05:37] LABS: Absolute Lymphocyte Count 1.81 X10^3/uL (0.83-4.51); Absolute Neutrophil Count 14.5 X10^3/uL (2.0-7.7); Basophil# 0.09 X10^3/uL; Basophil% 0.5 % (0-1); Eosinophil# 0.31 X10^3/uL; Eosinophils% 1.6 % (0-5); Hemoglobin 10.1 g/dL (12.0-15.0); Lymphocyte # 1.81 X10^3/ul (0.83-4.51); Lymphocyte % 9.6 % (19-41); Mean Corp Hgb Conc 31.6 g/dL (32-36); Mean Corpuscular Hgb 31.4 pg (27.0-32.0); Mean Corpuscular Volume 99.4 fL (81-99); Mean Platelet Vol. 12.5 fl (6.2-12.0); Monocyte# 2.03 X10^3/uL; Monocyte% 10.8 % (0-10); NRBC Flagged by Analyzer 0 % (0-5); Neutrophil # 14.46 X10^3/uL (2.7-7.7); Neutrophil % 76.9 % (47-70); POSITIVE DIFFERENTIAL YES; Platelet Count 194 K/mm3 (150-450); RBC Distribution Width CV 15.5 % (11.6-14.6); RBC Distribution Width SD 56.5 fl (35.1-43.9); Red Blood Count 3.22 M/mm3 (4.2-5.4); White Blood Count 18.8 K/mm3 (4.4-11.0)
[2023-05-20 05:46] LABS: Differential Indicated SCAN CRITERIA MET
[2023-05-20 06:16] LABS: Anion Gap 12 (5-15); BUN 11 mg/dL (7-18); BUN/Creat Ratio 11.5 RATIO (10-20); Calcium,Total 7.6 mg/dL (8.5-10.1); Chloride 113 mmol/L (98-107); Creatinine, Serum 0.96 mg/dL (0.55-1.02); EST Glomerular Filtration Rate 60 mL/min (>60); Est Glom Filt Rate - Afr Amer 73 mL/min (>60); Estimated Creatinine Clearance 51.68 ml/min; Glucose 110 mg/dL (74-106); Magnesium 2.2 mg/dL (1.6-2.6); Phosphorus 3.2 mg/dL (2.5-4.9); Potassium 3.5 mmol/L (3.5-5.1); Sodium Level 142 mmol/L (136-145)
[2023-05-20 07:15] LABS: Differential Comment SCANNED
[2023-05-20] MEDS: Escitalopram Oxalate 10 MG Tablet PO (07:27)
[2023-05-20] MEDS: Acyclovir 200 MG Capsule 400 MG PO ×2 (07:27→21:17)
[2023-05-20] MEDS: Calcitriol 0.25 MCG Capsule 0.5 MCG PO (07:30)
[2023-05-20] MEDS: Magnesium Chloride 64 MG Delay Rel.Tablet 128 MG PO (07:30)
[2023-05-20] MEDS: Etodolac 300 MG Capsule PO ×2 (07:31→21:19)
[2023-05-20] MEDS: Thiamine Hydrochloride 100 MG Tablet PO (07:31)
[2023-05-20] MEDS: Pyridoxine HCl 100 MG Tablet PO (07:31)
[2023-05-20] MEDS: Memantine Hydrochloride 5 MG Tablet PO ×2 (07:31→21:17)
[2023-05-20] MEDS: Multivitamins,Ther W-Minerals Tablet 1 TABLET PO (07:31)
[2023-05-20] MEDS: Potassium Chloride Oral Tablet 20 MEQ 40 MEQ PO (07:31)
[2023-05-20] MEDS: Folic Acid 1 MG Tablet PO (07:32)
[2023-05-20] MEDS: QUEtiapine 25 MG Tablet PO (07:32)
[2023-05-20] MEDS: clonazePAM 1 MG Tablet PO ×2 (07:34→21:16)
[2023-05-20] MEDS: Heparin Injection (Vial) 5,000 UNIT/ML VIAL 5000 UNIT SC ×2 (07:41→21:16)
--- NOTE | 2023-05-20 09:00 | PCM.PN.HOSP ---
Subjective Subjective Feels well. No issues overnight. Objective Data Objective Data Vital Signs: Vital Signs Temp Pulse Resp BP Pulse Ox O2 Del Method O2 Flow Rate 37.6 C H 84 22 H 121/68 H 92 Room Air 2 05/20/23 04:47 05/20/23 04:47 05/20/23 04:47 05/20/23 04:47 05/20/23 04:47 05/20/23 04:47 05/19/23 08:00 FiO2 2 05/19/23 09:16 Oxygen Flow Rate (L/min) 2 Oxygen Delivery Method Room Air Weight: 75.5 kg Body Mass Index (BMI) 26.9 Intake & Output: Intake and Output for Last 24 Hours 05/18/23 05/19/23 05/20/23 23:59 23:59 23:59 Intake Total 5255 / 5255 250 / 250 Output Total 1750 / 2250 1300 / 1300 Balance 3505 / 3005 -1050 / -1050 Lab / Micro Data 05/20/23 05:21 05/20/23 05:21 Labs: Laboratory Results - last 24 hr 05/18/23 23:50: PT 16.0 H, INR 1.3, APTT 30.3 05/20/23 05:21: WBC 18.8 H, RBC 3.22 L, Hgb 10.1 L, Hct 32.0 L, MCV 99.4 H, MCH 31.4, MCHC 31.6 L, RDW Std Deviation 56.5 H, RDW Coeff of Felix 15.5 H, Plt Count 194, MPV 12.5 H, Immature Gran % (Auto) 0.600, Neut % (Auto) 76.9 H, Lymph % (Auto) 9.6 L, Lyman % (Auto) 10.8 H, Eos % (Auto) 1.6, Baso % (Auto) 0.5, Absolute Neuts (auto) 14.5 H, Absolute Lymphs (auto) 1.81, Nucleated RBC % 0, Differential Comment SCANNED, Diff Path Review August, Sodium 142, Potassium 3.5, Chloride 113 H, Carbon Dioxide 17.0 L, Anion Gap 12, BUN 11, Creatinine 0.96, Estim Creat Clear Calc 51.68, Est GFR (MDRD) Af Amer 73, Est GFR (MDRD) Non-Af 60, BUN/Creatinine Ratio 11.5, Glucose 110 H, Calcium 7.6 L, Phosphorus 3.2, Magnesium 2.2 Micro: Microbiology 05/18/23 23:50 Urine, Catheterized Urine Culture - Preliminary Presumptive E. coli 05/18/23 23:50 Blood Culture (Wb) - Left Hand Blood Culture - Preliminary GNR lactose ornamental iron erector 05/19/23 00:00 Urine, Clean Catch Legionella Antigen - Final 05/19/23 00:00 Urine, Clean Catch Streptococcus pneumoniae Antigen (M - Final 05/18/23 23:43 Mucosa - Nasopharyngeal SARS-CoV-2, Influenza & RSV (PCR) - Final Radiography Diagnostic Testing: Radiology Impression Chest X-Ray 05/19/23 06:07 IMPRESSION: Cardiomegaly. Electronically Signed: Arpita Belcher MD at 9:59 EST , Rhythm Strip Rhythm Strip: Sinus Tach Rate: 119 Physical Exam Const alert and no apparent distress Resp normal respiratory effort, no retractions, no use of accessory muscles and clear to auscultation bilaterally Cardio regular rate, regular rhythm, S1 normal heart sound and S2 normal heart sound GI normal to inspection, nondistended, normoactive bowel sounds, soft to palpation, non-tender and non-distended Neuro Sensorium / Orientation: awake and alert Psych affect normal Assessment & Plan Assessment/Plan (1) Encephalopathy due to infection: PLAN: Plan Acute transient encephalopathy, metabolic suspected multifactorial, secondary to dementia and UTI UTI suspected E. coli, sensitivities pending. on pip/tazo Bacteremia BCx on 05/18 showing GNR on piptazo suspect same organism as UTI. Acute kidney injury: ruled out. Was not present on admission. No additional work up. Hyperglycemia: No diabetic history per review of chart, admission glucose 134, possibly stress response, continue to trend and if further elevated low threshold to obtain hemoglobin A1c. Chronic conditions: EtOH Abuse: Noted during prior admissions and patient has had significantly elevated alcohol levels previously, frequently denies but family has mentioned she is an alcoholic. Ethyl alcohol level pending as well as UDS upon presentation. Will maintain on CIWA protocol, MVI, thiamine and folic acid. Case management consulted. Polysubstance abuse: Patient with previous admissions with positive opiate and also on a significant amount of benzodiazepines with also alcohol abuse, urine drug screen pending upon evaluation of patient. Dementia, unclear type with unclear behavioral disturbance history: Complicates presentation, will continue patient home memantine home regimen, maintain on fall and aspiration precautions, therapies as well as case management consulted as noted. Anxiety and depression: We will continue patient home BuSpar, clonazepam regimen to avoid any withdrawal however if any concerns for sedation low threshold to hold, continue patient home Seroquel low-dose regimen concurrently. Chronic normocytic anemia: Admission hemoglobin 11.9, MCV 97.9, baseline hemoglobin similar, continue to trend. Hypothyroidism: Will continue patient on levothyroxine regimen GERD: We will continue patient home famotidine regimen. Hypertension: BP low upon ED initial presentation and evaluation, will temporally hold amlodipine, resume once appropriate. Hyperlipidemia: Not on statin per current regimen listed, defer to outpatient. Questionable history of rheumatoid arthritis: Not on regimen, encourage continued outpatient follow-up with rheumatology as needed. DVT prophylaxis: Heparin. Charges/Coding Visit Charges Inpatient E&M: 36656 Subs Hosp L2
[2023-05-20 13:06] LABS: Pathologist Review Reviewed
[2023-05-20 13:06] LABS: Pathologist Review Reviewed
--- NOTE | 2023-05-20 15:59 | CASEMGMT ---
PADILLA CONNER Assessment Face to Face with patient for initial transition planning/care coordination assessment. PADILLA CONNER introduced self and role at [facility], pt voices understanding. Pt is A&Ox4 and is resting comfortably in bed and is calm. Pt caregiver (Murphy) at bedside. Care providers, pharmacy, and demographics verified. Admitting dx: Encephalopothy, UTI, Aspiration suspected with Hypoxia PCP: Debra Specialists: Pt states she sees a [employer] [facility] but could not recall the name or location. Preferred Pharmacy: [facility] Insurance: Suzy CARDENAS Prescription Benefit: Yes LNOK: Patricia Marx ([facility]) Living Arrangements: Pt lives in an apartment with a flat entrance. Pt has a caregiver that is present in the home 12/11. Pt and pt caregiver state she has 3 caregivers that they rotate and the agency is [facility]. ADLs/IADLs: Ind with most ADLs. Needs assistance with IADLs. Caregivers assist. Transportation: Pt does not drive and her caregivers drive her DME: Pt uses a rollator at home. Shower chair. Raised toilet seat with grab bars. HHC/SNF: States history at [facility] 2 years ago for a fall. Pt states she had rib fractures and she was there for about 4-5 months. Pt is active with [facility] to assist pt with IADLs and transportation. Pt?s goal: DC home Plan: Pt refusing SNF at this time. Pt plan and goal is to DC home with the continuation of her home care. Will follow for any further needs. Consuelo Andre RN, CM
[2023-05-20] MEDS: Menthol/Lanolin/Calamine/Znox 113 GM Tube 1 APPLIC TOPICAL ×2 (16:42→21:24)
[2023-05-20] MEDS: Budesonide Respules 0.5 MG/2 ML AMPUL.NEB. INHALATION (19:17)
[2023-05-20] MEDS: MELATONIN 3 MG TABLET PO (21:19)
[2023-05-20] MEDS: Famotidine 20 MG Tablet PO (21:20)
[2023-05-21 02:05] VITALS: BP 134/68; PULSE 74; RESP 16; TEMP 36.6; O2SAT 97
[2023-05-21] MEDS: Pregabalin 75 MG Capsule PO (05:46)
[2023-05-21] MEDS: Piperacil/Tazobactam 3.375 GM in 0.9% Normal Saline (50mL MB+) 50 ML IV (05:46)
[2023-05-21] MEDS: Levothyroxine 125 MCG Tablet PO (05:46)
[2023-05-21 06:00] VITALS: BMI 26.6
[2023-05-21] MEDS: Escitalopram Oxalate 10 MG Tablet PO (07:59)
[2023-05-21 08:00] VITALS: PULSE 86; RESP 22; O2SAT 94
[2023-05-21] MEDS: QUEtiapine 25 MG Tablet PO (08:00)
[2023-05-21] MEDS: Calcitriol 0.25 MCG Capsule 0.5 MCG PO (08:00)
[2023-05-21] MEDS: Potassium Chloride Oral Tablet 20 MEQ 40 MEQ PO (08:00)
[2023-05-21] MEDS: Thiamine Hydrochloride 100 MG Tablet PO (08:00)
[2023-05-21] MEDS: Memantine Hydrochloride 5 MG Tablet PO (08:00)
[2023-05-21] MEDS: Budesonide Respules 0.5 MG/2 ML AMPUL.NEB. INHALATION (08:00)
[2023-05-21] MEDS: Albuterol 2.5 MG/3 ML VIAL.NEB. INHALATION (08:00)
[2023-05-21] MEDS: Multivitamins,Ther W-Minerals Tablet 1 TABLET PO (08:00)
--- NOTE | 2023-05-21 08:00 | CPS ---
Pt's lungs are diminished, she wheezes over her throat only @this time.
[2023-05-21] MEDS: Magnesium Chloride 64 MG Delay Rel.Tablet 128 MG PO (08:01)
[2023-05-21] MEDS: Acyclovir 200 MG Capsule 400 MG PO (08:01)
[2023-05-21] MEDS: Folic Acid 1 MG Tablet PO (08:01)
[2023-05-21] MEDS: Etodolac 300 MG Capsule PO (08:01)
[2023-05-21] MEDS: Pyridoxine HCl 100 MG Tablet PO (08:02)
[2023-05-21] MEDS: Heparin Injection (Vial) 5,000 UNIT/ML VIAL 5000 UNIT SC (08:02)
[2023-05-21] MEDS: Menthol/Lanolin/Calamine/Znox 113 GM Tube 1 APPLIC TOPICAL (08:02)
[2023-05-21] MEDS: clonazePAM 1 MG Tablet PO (08:14)
--- NOTE | 2023-05-21 08:23 | PN.HOSP_ITS ---
Reason for Visit Reason for Visit: Diagnoses Unspecified infectious disease (05/19/23) Other encephalopathy (05/19/23) Subjective Subjective Feels well. Objective Data Objective Data Vital Signs: Vital Signs Temp Pulse Resp BP Pulse Ox O2 Del Method O2 Flow Rate 36.6 C 74 16 134/68 H 97 Room Air 2 05/21/23 02:05 05/21/23 02:05 05/21/23 02:05 05/21/23 02:05 05/21/23 02:05 05/21/23 07:52 05/19/23 08:00 FiO2 2 05/19/23 09:16 Oxygen Flow Rate (L/min) 2 Oxygen Delivery Method Room Air Weight: 74.865 kg Body Mass Index (BMI) 26.6 Intake & Output: Intake and Output for Last 24 Hours 05/19/23 05/20/23 05/21/23 23:59 23:59 23:59 Intake Total 5255 / 5255 950 / 950 50 / 50 Output Total 1750 / 2250 2200 / 2800 1100 / 1100 Balance 3505 / 3005 -1250 / -1850 -1050 / -1050 Lab / Micro Data 05/20/23 05:21 05/20/23 05:21 Labs: Laboratory Results - last 24 hr 05/19/23 06:10: Diff Path Review Reviewed 05/20/23 05:21: Diff Path Review Reviewed Micro: Microbiology 05/18/23 23:50 Blood Culture (Wb) - Left Hand Blood Culture - Final Escherichia coli 05/18/23 23:50 Urine, Catheterized Urine Culture - Final Presumptive E. coli 05/19/23 00:00 Urine, Clean Catch Legionella Antigen - Final 05/19/23 00:00 Urine, Clean Catch Streptococcus pneumoniae Antigen (M - Final 05/18/23 23:43 Mucosa - Nasopharyngeal SARS-CoV-2, Influenza & RSV (PCR) - Final Rhythm Strip Rhythm Strip: Sinus Tach Rate: 119 Physical Exam Const alert and no apparent distress HEENT head/scalp atraumatic Resp normal respiratory effort, no retractions, no use of accessory muscles and clear to auscultation bilaterally Cardio regular rate, regular rhythm, S1 normal heart sound and S2 normal heart sound GI normal to inspection, nondistended, normoactive bowel sounds Assessment & Plan Assessment/Plan (1) Encephalopathy due to infection: PLAN: Plan Acute transient encephalopathy, metabolic * suspected multifactorial, secondary to dementia and UTI and bacteremia. UTI * E. coli, christiansen-sensitive * on pip/tazo, change to levofloxacin for 7 more days. * dc holland catheter. check post-void residual. Bacteremia * BCx on 05/18 showing christiansen-sensitive E. coli * on pip/tazo * due to UTI. Acute kidney injury: * ruled out. Was not present on admission. No additional work up. Hyperglycemia: * No diabetic history per review of chart, admission glucose 134, possibly stress response, continue to trend and if further elevated low threshold to obtain hemoglobin A1c. Chronic conditions: * EtOH Abuse: Noted during prior admissions and patient has had significantly elevated alcohol levels previously, frequently denies but family has mentioned she is an alcoholic. Ethyl alcohol level pending as well as UDS upon presentation. Will maintain on CIWA protocol, MVI, thiamine and folic acid. Case management consulted. * Polysubstance abuse: Patient with previous admissions with positive opiate and also on a significant amount of benzodiazepines with also alcohol abuse, urine drug screen pending upon evaluation of patient. * Dementia, unclear type with unclear behavioral disturbance history: Complicates presentation, will continue patient home memantine home regimen, maintain on fall and aspiration precautions, therapies as well as case management consulted as noted. * Anxiety and depression: We will continue patient home BuSpar, clonazepam regimen to avoid any withdrawal however if any concerns for sedation low threshold to hold, continue patient home Seroquel low-dose regimen concurrently. * Chronic normocytic anemia: Admission hemoglobin 11.9, MCV 97.9, baseline hemoglobin similar, continue to trend. * Hypothyroidism: Will continue patient on levothyroxine regimen * GERD: We will continue patient home famotidine regimen. * Hypertension: BP low upon ED initial presentation and evaluation, will temporally hold amlodipine, resume once appropriate. * Hyperlipidemia: Not on statin per current regimen listed, defer to outpatient. * Questionable history of rheumatoid arthritis: Not on regimen, encourage continued outpatient follow-up with rheumatology as needed. DC home with [facility].
[2023-05-21 09:00] VITALS: BP 149/75; PULSE 82; RESP 18; TEMP 37.2; O2SAT 99
[2023-05-21] MEDS: levoFLOXacin 750 MG Tablet PO (09:35)
--- NOTE | 2023-05-21 10:30 | DS.PCM_ITS ---
Providers Date of Admission: 05/19/23 Primary Care Physician: Dr. Erica Richardson DO Reason For Visit: ENCEPHALOPATHY, UTI, ASPIRATION SUSPECTED W/HYPOXI Diagnosis Discharge Diagnosis (1) Encephalopathy due to infection: Status: Acute Code(s): G93.49 - Other encephalopathy; B99.9 - Unspecified infectious disease Plan Acute transient encephalopathy, metabolic * suspected multifactorial, secondary to dementia and UTI and bacteremia. UTI * E. coli, christiansen-sensitive * on pip/tazo, change to levofloxacin for 7 more days. * dc holland catheter. check post-void residual. Bacteremia * BCx on 05/18 showing christiansen-sensitive E. coli * on pip/tazo * due to UTI. Acute kidney injury: * ruled out. Was not present on admission. No additional work up. Hyperglycemia: * No diabetic history per review of chart, admission glucose 134, possibly stre ss response, continue to trend and if further elevated low threshold to obtain hemoglobin A1c. Chronic conditions: * EtOH Abuse: Noted during prior admissions and patient has had significantly elevated alcohol levels previously, frequently denies but family has mentioned she is an alcoholic. Ethyl alcohol level pending as well as UDS upon presentation. Will maintain on CIWA protocol, MVI, thiamine and folic acid. Case management consulted. * Polysubstance abuse: Patient with previous admissions with positive opiate and also on a significant amount of benzodiazepines with also alcohol abuse, urine drug screen pending upon evaluation of patient. * Dementia, unclear type with unclear behavioral disturbance history: Complicates presentation, will continue patient home memantine home regimen, juliane metzgerain on fall and aspiration precautions, therapies as well as case management consulted as noted. * Anxiety and depression: We will continue patient home BuSpar, clonazepam regimen to avoid any withdrawal however if any concerns for sedation low threshold to hold, continue patient home Seroquel low-dose regimen concurrently. * Chronic normocytic anemia: Admission hemoglobin 11.9, MCV 97.9, baseline hemoglobin similar, continue to trend. * Hypothyroidism: Will continue patient on levothyroxine regimen * GERD: We will continue patient home famotidine regimen. * Hypertension: BP low upon ED initial presentation and evaluation, will temporally hold amlodipine, resume once appropriate. * Hyperlipidemia: Not on statin per current regimen listed, defer to outpatient. * Questionable history of rheumatoid arthritis: Not on regimen, encourage continued outpatient follow-up with rheumatology as needed. DC home with [facility]. Medications at Discharge Home Medications potassium chloride 20 mEq tablet,extended release(part/cryst) 40 meq PO DAILY SUPPLEMENT 08/01/20 valacyclovir 1 gram tablet 1,000 mg PO DAILY SHINGLES 08/01/20 dexamethasone sodium phosphate 0.1 % eye drops 1 drp ophthalmic (eye) DAILY glaucoma 03/09/21 hydrocodone 10 mg-acetaminophen 325 mg tablet 1 tab PO Q6H PAIN 06/11/21 clonazepam 1 mg tablet 1 mg PO BID #6 tabs 03/03/22 pregabalin 75 mg capsule 75 mg PO TID PAIN #9 caps 03/03/22 amlodipine 5 mg tablet 5 mg PO DAILY 11/22/22 calcitriol 0.5 mcg capsule 0.5 mcg PO DAILY 11/22/22 cholecalciferol (vitamin D3) 25 mcg (1,000 unit) capsule 25 mcg PO DAILY SUPPLEMENT 11/22/22 escitalopram oxalate 10 mg tablet (Lexapro) 10 mg PO DAILY ANXIETY 11/22/22 magnesium oxide 500 mg PO DAILY SUPPLEMENT 11/22/22 meclizine 25 mg tablet 25 mg PO TID Dizziness 11/22/22 memantine 5 mg tablet 5 mg PO BID 11/22/22 nabumetone 750 mg tablet 750 mg PO BID 11/22/22 quetiapine 100 mg tablet 25 mg PO DAILY DEPRESSION 11/22/22 albuterol sulfate 90 mcg/actuation aerosol inhaler (Proventil HFA) 2 puff inhalation Q6H PRN shortness of breath or wheezing #8.5 grams 11/23/22 levothyroxine 125 mcg tablet 125 mcg PO DAILY #90 tabs 02/19/23 acetaminophen 500 mg capsule 500 mg PO BID 05/19/23 famotidine 20 mg tablet (Pepcid) 20 mg PO QHS 05/19/23 polyethylene glycol 3350 17 gram/dose oral powder (ClearLax) 17 g PO DAILY 05/19/23 pyridoxine (vitamin B6) 100 mg tablet 100 mg PO DAILY 05/19/23 levofloxacin 750 mg tablet 750 mg PO DAILY@0600 #6 tabs 05/21/23 Hospital Course Operations None Procedures None Summary of Care Provided Minutes Spent on Discharge: 32 Weight / BMI Weight Weight: 74.865 kg Body Mass Index (BMI) 26.6 ABG / Lab / Microbiology Data 05/20/23 05:21 05/20/23 05:21 Laboratory: Laboratory Results - last 24 hr 05/19/23 06:10: Diff Path Review Reviewed 05/20/23 05:21: Diff Path Review Reviewed Microbiology: Microbiology 05/18/23 23:50 Blood Culture (Wb) - Left Hand Blood Culture - Final Escherichia coli 05/18/23 23:50 Urine, Catheterized Urine Culture - Final Presumptive E. coli 05/19/23 00:00 Urine, Clean Catch Legionella Antigen - Final 05/19/23 00:00 Urine, Clean Catch Streptococcus pneumoniae Antigen (M - Final 05/18/23 23:43 Mucosa - Nasopharyngeal SARS-CoV-2, Influenza & RSV (PCR) - Final D/C Instructions Discharge Diet: No restrictions Meaningful Use Info Meaningful Use Diagnoses (Choose all that apply): None applicable Discharge Plan Admission Admit Date/Time: 05/19/23 01:36 Primary Reason for Your Visit: Urinary tract infection Attending Provider: Froy Velázquez Primary Care Provider: Erica Richardson Consulting Providers: Aggie Bolton; Vernon Osman Instructions Additional Instructions / Restrictions: You presented very ill from a urinary tract infection that also led to bacteremia (bacteria in your blood). You have done well with antibiotics. You will be on antibiotics for 6 more days with levofloxacin. Please take the antibiotic until that has been completed. Discharge Orders/Prescriptions Prescriptions: New levofloxacin 750 mg Tablet 750 mg PO DAILY@0600 Qty: 6 0RF Continued valacyclovir 1 gram tablet 1,000 mg PO DAILY potassium chloride 20 mEq tablet,ER particles/crystals 40 meq PO DAILY dexamethasone sodium phosphate 0.1 % drops 1 drp ophthalmic (eye) DAILY Rx Instructions: RIGHT EYE hydrocodone-acetaminophen 10-325 mg tablet 1 tab PO Q6H acetaminophen 500 mg capsule 500 mg PO BID polyethylene glycol 3350 [ClearLax] 17 gram/dose powder 17 g PO DAILY famotidine [Pepcid] 20 mg tablet 20 mg PO QHS pyridoxine (vitamin B6) 100 mg tablet 100 mg PO DAILY cholecalciferol (vitamin D3) 25 mcg (1,000 unit) capsule 25 mcg PO DAILY magnesium oxide 500 mg tablet 500 mg PO DAILY memantine 5 mg tablet 5 mg PO BID nabumetone 750 mg tablet 750 mg PO BID escitalopram oxalate [Lexapro] 10 mg tablet 10 mg PO DAILY quetiapine 100 mg tablet 25 mg PO DAILY amlodipine 5 mg tablet 5 mg PO DAILY meclizine 25 MG tablet 25 mg PO TID calcitriol 0.5 mcg capsule 0.5 mcg PO DAILY Rx Instructions: please discontinue any rx for calcitriol by an other doctors albuterol sulfate [Proventil HFA] 90 mcg/actuation HFA aerosol inhaler 2 puff inhalation Q6H PRN (Reason: shortness of breath or wheezing) Qty: 8.5 0RF clonazepam 1 mg tablet 1 mg PO BID Qty: 6 0RF pregabalin 75 mg capsule 75 mg PO TID Qty: 9 0RF levothyroxine 125 mcg tablet 125 mcg PO DAILY Qty: 90 0RF Referrals / Follow Up: Erica Richardson DO [Primary Care Provider] - Within 2 Weeks Disposition Disposition (needs filled in before D/C Order can be placed): Home Health Service Charges/Coding Visit Charges Inpatient E&M: 99611 Disch Hosp >30min
[2023-05-21 10:31] LABS: Absolute Lymphocyte Count 1.08 X10^3/uL (0.83-4.51); Basophil# 0.07 X10^3/uL; Basophil% 0.6 % (0-1); Eosinophil# 0.26 X10^3/uL; Hematocrit 32.2 % (37-47); Hemoglobin 10.3 g/dL (12.0-15.0); Lymphocyte # 1.08 X10^3/ul (0.83-4.51); Lymphocyte % 8.5 % (19-41); Mean Corpuscular Hgb 31.7 pg (27.0-32.0); Mean Corpuscular Volume 99.1 fL (81-99); Mean Platelet Vol. 11.8 fl (6.2-12.0); Monocyte% 9.4 % (0-10); NRBC Flagged by Analyzer 0 % (0-5); Neutrophil # 10.04 X10^3/uL (2.7-7.7); Platelet Count 218 K/mm3 (150-450); RBC Distribution Width CV 15.1 % (11.6-14.6); RBC Distribution Width SD 54.6 fl (35.1-43.9); Red Blood Count 3.25 M/mm3 (4.2-5.4); White Blood Count 12.7 K/mm3 (4.4-11.0)
--- NOTE | 2023-05-21 10:55 | PHA.DC.MC.R ---
Pharmacy [facility] has performed discharge medication reconciliation and counseling for this patient. The patient's discharge medication list was reviewed for discrepancies and discrepancies were resolved. The patient was counseled on the following discharge medications and changes in medications for homegoing were reviewed. The Reason for Use, instructions for use, and potential side effects were reviewed for all new medications. The patient's questions regarding all of their medications were answered. 1. Levofloxacin 750 mg PO daily x 6 days The patient was able to verbally demonstrate an understanding of their discharge medications. Medications at Discharge Home Medications potassium chloride 20 mEq tablet,extended release(part/cryst) 40 meq PO DAILY SUPPLEMENT 08/01/20 valacyclovir 1 gram tablet 1,000 mg PO DAILY SHINGLES 08/01/20 dexamethasone sodium phosphate 0.1 % eye drops 1 drp ophthalmic (eye) DAILY glaucoma 03/09/21 hydrocodone 10 mg-acetaminophen 325 mg tablet 1 tab PO Q6H PAIN 06/11/21 clonazepam 1 mg tablet 1 mg PO BID #6 tabs 03/03/22 pregabalin 75 mg capsule 75 mg PO TID PAIN #9 caps 03/03/22 amlodipine 5 mg tablet 5 mg PO DAILY 11/22/22 calcitriol 0.5 mcg capsule 0.5 mcg PO DAILY 11/22/22 cholecalciferol (vitamin D3) 25 mcg (1,000 unit) capsule 25 mcg PO DAILY SUPPLEMENT 11/22/22 escitalopram oxalate 10 mg tablet (Lexapro) 10 mg PO DAILY ANXIETY 11/22/22 magnesium oxide 500 mg PO DAILY SUPPLEMENT 11/22/22 meclizine 25 mg tablet 25 mg PO TID Dizziness 11/22/22 memantine 5 mg tablet 5 mg PO BID 11/22/22 nabumetone 750 mg tablet 750 mg PO BID 11/22/22 quetiapine 100 mg tablet 25 mg PO DAILY DEPRESSION 11/22/22 albuterol sulfate 90 mcg/actuation aerosol inhaler (Proventil HFA) 2 puff inhalation Q6H PRN shortness of breath or wheezing #8.5 grams 11/23/22 levothyroxine 125 mcg tablet 125 mcg PO DAILY #90 tabs 02/19/23 acetaminophen 500 mg capsule 500 mg PO BID 05/19/23 famotidine 20 mg tablet (Pepcid) 20 mg PO QHS 01/28/24 polyethylene glycol 3350 17 gram/dose oral powder (ClearLax) 17 g PO DAILY 05/19/23 pyridoxine (vitamin B6) 100 mg tablet 100 mg PO DAILY 05/19/23 levofloxacin 750 mg tablet 750 mg PO DAILY@0600 #6 tabs 05/21/23
[2023-05-21 11:00] VITALS: PULSE 86
[2023-05-21 11:00] LABS: Anion Gap 5 (5-15); BUN 7 mg/dL (7-18); BUN/Creat Ratio 9.1 RATIO (10-20); Chloride 112 mmol/L (98-107); Creatinine, Serum 0.77 mg/dL (0.55-1.02); EST Glomerular Filtration Rate 78 mL/min (>60); Est Glom Filt Rate - Afr Amer 94 mL/min (>60); Estimated Creatinine Clearance 61.89 ml/min; Glucose 136 mg/dL (74-106); Potassium 3.4 mmol/L (3.5-5.1); Sodium Level 142 mmol/L (136-145)
[2023-05-21 11:05] VITALS: BP 125/60; PULSE 61; RESP 18; TEMP 36.9; O2SAT 94
--- NOTE | 2023-05-21 13:32 | CASEMGMT ---
Social Work SW spoke w/pt, confirmed that daughter Patricia Marx is healthcare POA. SW asked her to bring the documents in should she be in the hospital again, as pt is discharged today. Pt states understanding. EVELYN Zuniga
== END 2023-05-21 15:41 | disposition home health service (06) | DRG 689 ==
LOC: ED 05-19 01:03 → MS3 05-19 02:26
PROVIDERS: Internal Medicine; Admitting Provider Family Medicine; Emergency Provider Emergency Medicine; PCP Family Medicine
DX: N39.0 Urinary tract infection, site not specified (principal); G93.41 Metabolic encephalopathy; R78.81 Bacteremia; F03.90 Unspecified dementia, unspecified severity, without behavioral disturbance, psychotic disturbance, mood disturbance, and anxiety; E88.89 Other specified metabolic disorders; I95.9 Hypotension, unspecified; F10.10 Alcohol abuse, uncomplicated; E89.0 Postprocedural hypothyroidism; I10 Essential (primary) hypertension; F32.A Depression, unspecified; D64.9 Anemia, unspecified; K21.9 Gastro-esophageal reflux disease without esophagitis; E78.5 Hyperlipidemia, unspecified; F41.9 Anxiety disorder, unspecified; R73.9 Hyperglycemia, unspecified; B96.20 Unspecified Escherichia coli [E. coli] as the cause of diseases classified elsewhere; Z87.891 Personal history of nicotine dependence; Y90.9 Presence of alcohol in blood, level not specified
CPT/HCPCS: 36415; 71045; 80048; 80053; 80307; 80320; 80329; 81001; 83605; 83735; 84100; 85025; 85610; 85730; 87040; 87077; 87086; 87088; 87186; 87449; 87631; 93005; 94640; 94668; 97110; 97116; 97162; 97166; 99252; 99285; J7030; J7050; A4216; G0463; G0480

== ENCOUNTER 2023-08-20 12:22 | Emergency (ER) | payer MEDICARE, BC, SELFPAY ==
[2023-08-20 12:24] VITALS: BP 161/98; PULSE 75; RESP 18; TEMP 36.6; O2SAT 96; BMI 27.2
--- NOTE | 2023-08-20 13:01 | EX.ED.GENINJ ---
HPI History of Present Illness Chief Complaint: Laceration [facility] Medical History Alcohol abuse Anemia Anxiety and depression Arthritis Back problem Benzodiazepine dependence Breast cancer Calcium deficiency Frequent falls GERD (gastroesophageal reflux disease) Glaucoma High cholesterol Hypertension Hypoparathyroidism after procedure Hypothyroidism Melanoma Multiple rib fractures Opioid dependence Rheumatoid arthritis Skin cancer Subdural hematoma Tobacco abuse Vitamin D deficiency Home Medications potassium chloride 20 mEq tablet,extended release(part/cryst) 40 meq PO DAILY SUPPLEMENT 08/01/20 [History Last Taken 11/22/22] valacyclovir 1 gram tablet 1,000 mg PO DAILY SHINGLES 08/01/20 [History Last Taken 11/22/22] dexamethasone sodium phosphate 0.1 % eye drops 1 drp ophthalmic (eye) DAILY glaucoma 03/09/21 [History Last Taken 11/22/22] hydrocodone 10 mg-acetaminophen 325 mg tablet 1 tab PO Q6H PAIN 06/11/21 [History Last Taken 11/22/22] clonazepam 1 mg tablet 1 mg PO BID #6 tabs 03/03/22 [Rx Last Taken 11/22/22] pregabalin 75 mg capsule 75 mg PO TID PAIN #9 caps 03/03/22 [Rx Last Taken 11/22/22] amlodipine 5 mg tablet 5 mg PO DAILY 11/22/22 [History Last Taken 11/22/22] calcitriol 0.5 mcg capsule 0.5 mcg PO DAILY 11/22/22 [History Last Taken 11/22/22] cholecalciferol (vitamin D3) 25 mcg (1,000 unit) capsule 25 mcg PO DAILY SUPPLEMENT 11/22/22 [History Last Taken 11/22/22] escitalopram oxalate 10 mg tablet (Lexapro) 10 mg PO DAILY ANXIETY 11/22/22 [History Last Taken 11/22/22] magnesium oxide 500 mg PO DAILY SUPPLEMENT 11/22/22 [History Last Taken 11/22/22] meclizine 25 mg tablet 25 mg PO TID Dizziness 11/22/22 [History Last Taken 11/22/22] memantine 5 mg tablet 5 mg PO BID 11/22/22 [History Last Taken 11/22/22] nabumetone 750 mg tablet 750 mg PO BID 11/22/22 [History Last Taken 11/22/22] quetiapine 100 mg tablet 25 mg PO DAILY DEPRESSION 11/22/22 [History Last Taken 11/22/22] albuterol sulfate 90 mcg/actuation aerosol inhaler (Proventil HFA) 2 puff inhalation Q6H PRN shortness of breath or wheezing #8.5 grams 11/23/22 [Rx Last Taken Unknown] levothyroxine 125 mcg tablet 125 mcg PO DAILY #90 tabs 02/19/23 [Rx Last Taken Unknown] acetaminophen 500 mg capsule 500 mg PO BID 05/19/23 [History Last Taken Unknown] famotidine 20 mg tablet (Pepcid) 20 mg PO QHS 05/19/23 [History Last Taken Unknown] polyethylene glycol 3350 17 gram/dose oral powder (ClearLax) 17 g PO DAILY 05/19/23 [History Last Taken Unknown] pyridoxine (vitamin B6) 100 mg tablet 100 mg PO DAILY 05/19/23 [History Last Taken Unknown] levofloxacin 750 mg tablet 750 mg PO DAILY@0600 #6 tabs 05/21/23 [Rx Last Taken Unknown] Allergy/AdvReac Type Severity Reaction Status Date / Time bacitracin Allergy Unknown Unknown Verified 08/20/23 12:28 [From Neosporin ([id number])] neomycin Allergy Unknown Unknown Verified 08/20/23 12:28 [From Neosporin ([id number])] polymyxin B Allergy Unknown Unknown Verified 08/20/23 12:28 [From Neosporin ([id number])] Antihistamines - Alkylamine Allergy PT UNSURE Verified 08/20/23 12:28 OF REACTION diphenhydramine Allergy PT UNSURE Verified 08/20/23 12:28 [From Benadryl] OF REACTION Family History Unknown Thyroid disorder Cancer High cholesterol Arthritis Mother Cancer Diabetes Father , Father at the age of 50 from successful suicide attempt. Suicidal intent Other Alcohol abuse Anxiety Depression Heart disease Hypertension Mental disorder Parkinson disease Psychiatric care Surgical History H/O mastectomy H/O thyroidectomy Status post glaucoma surgery Social History (Updated 05/19/23 @ 01:[address] Aggie Bolton MD) household members: none Smoking Status: Former smoker second hand exposure: Yes alcohol intake: current alcohol intake frequency: 3 or more drinks per day substance use type: does not use EXAM Physical Exam Const Vital Signs: 08/20/23 12:24 08/20/23 16:10 Temperature 97.9 F Temperature Source Temporal Pulse Rate 75 79 Respiratory Rate 18 16 Blood Pressure 161/98 H 164/85 H Blood Pressure Mean 119 111 Pulse Ox 96 95 Oxygen Delivery Method Room Air Room Air [employer] MDM Narrative Medical decision making narrative: HISTORY OF PRESENT ILLNESS: 77-year-old female presents after mechanical fall from standing with head trauma and concern for laceration. No loss of consciousness. No blood thinner use. REVIEW OF SYSTEMS: Pertinent positives: Fall, laceration Pertinent negatives: Loss of consciousness PHYSICAL EXAM: Nursing triage notes reviewed, Vital signs reviewed Primary Survey Airway: Intact Breathing: Bilateral breath sounds Circulation: Palpable bilateral femorals, Palpable bilateral radial, Palpable bilateral DP and Palpable bilateral PT Disability / Spine precautions GCS Score: Eye Openin Verbal Response: 5 Motor Response: 6 Secondary Survey Constitutional: Please see MDM Head: Atraumatic, Midface stable, NO jaw malocclusion, No Cephalohematoma, and No Lacerations noted Eye: Pupils equal round and reactive to light, Extraocular muscles intact and No periorbital ecchymosis or stepoff, no evidence of entrapment ENT: Oropharynx clear, no lacerations, no hemotympanum, no raccoon eyes or tejeda sign Cervical spine / Neck: No cervical spine bony tenderness, crepitance, or stepoff deformity Trachea midline Lungs: Clear to auscultation, No asymmetric rise and No crepitus, no flail chest Cardiac: Regular rate and rhythm and No murmurs Abdomen: Soft, Nontender and No rebound Pelvis: Pelvis stable to compression : No evidence of genital injury Back: No midline bony tenderness to thoracic/lumbar/sacral spines Neuro: Alert and oriented x3, neuro exam at baseline, cranial nerves II through XII are intact. 5 of 5 strength in upper and lower extremities in flexion extension. Intact sensation to light touch in upper and lower extremity dermatomes. No truncal or extremity ataxia. No dysdiadochokinesia. Normal gait. 2+ reflexes in upper and lower extremities. No meningeal signs. Negative Babinski. NIH of 0. Extremities: NO gross Deformities Psych: Normal affect Nursing triage notes reviewed, Vital signs reviewed MEDICAL DECISION MAKING: Chief Complaint: Fall, laceration External records reviewed: Prior imaging reviewed: CT scan of the brain from June 2022 shows the following: No acute intracranial findings. Right orbital floor fracture. Possible nondisplaced right medial orbital wall fracture. Factors affecting care: Alcohol abuse, anxiety, Social determinants of health: History of alcohol abuse History obtained from others: none Consults: none MDM Narrative: The patient was hemodynamically stable, afebrile and nontoxic-appearing. Primary secondary trauma surveys concerning for the following: I considered the following differential diagnosis: Laceration, skull fracture, ICH ALL IMAGES (IF OBTAINED) HAVE BEEN PERSONALLY REVIEWED AND INTERPRETED BY MYSELF. CT scan of the head, cervical spine are negative for acute traumatic injury including ICH, cervical spine fracture dislocation or skull fracture. Patient laceration was repaired as below. No clear life-limiting etiology be ascertained. The patient is appropriate for discharge home. Procedure: Laceration repair. The procedure was performed by myself. Indication: Wound repair Risks and benefits: risks, benefits and alternatives were discussed Consent: Consent was obtained. Wound Details: 1 cm linear laceration noted along the scalp line proximal and 1 mm in depth, no galeal involvement Anesthesia: Topical let Wound prep: Patient was prepped and draped in the usual sterile fashion. Tetanus: Updated today Irrigation Solution: Saline Wound Preparation: Cleaned with topical chlorhexidine The wound was explored to its base in a bloodless field. Procedure Description: Placed 3 simple erupted 5-0 Chromic Gut sutures with good approximation Patient tolerated the procedure well with no immediate complications The patient and/or family, caregivers express understanding. The patient and/or family, caregivers agrees with the plan. Shared decision making: I will have a discussion with the patient and or visitors regarding risk/benefits of further testing or admission. They will be made aware of of the risk/benefits inherent in this decision they will be given the opportunity to voice understanding. Total critical care time today provided was at least 0 minutes. This excludes separately billable procedures. Critical care time (if documented) is secondary to the patient having high probability of clinically significant/life threatening deterioration in the patient's condition which required my urgent intervention. Impression: 1. Head laceration 2. Concussion Dispo: Discharge home This note was generated with [employer] dictation software. It may contain incorrect words, spelling, and punctuation that were not noted in review of the chart prior to signing. Radiography Diagnostic Testing: Clinical Impression(s) from Imaging Studies Brain CT 08/20/23 13:27 IMPRESSION: Chronic involutional changes of the brain. Electronically Signed: Franki Glez MD at 15:45 EDT , Cervical Spine CT 08/20/23 13:27 IMPRESSION: There is no definite acute fracture/dislocation. Degenerative changes. Electronically Signed: Danny Nair MD at 16:26 EDT , Discharge Plan Triage Chief Complaint: Laceration ED Provider: Seb Bautista Dx/Rx/DC Orders Instructions: ED Laceration, All Closures Prescriptions: No Action valacyclovir 1 gram tablet 1,000 mg PO DAILY potassium chloride 20 mEq tablet,ER particles/crystals 40 meq PO DAILY dexamethasone sodium phosphate 0.1 % drops 1 drp ophthalmic (eye) DAILY Rx Instructions: RIGHT EYE hydrocodone-acetaminophen 10-325 mg tablet 1 tab PO Q6H acetaminophen 500 mg capsule 500 mg PO BID polyethylene glycol 3350 [ClearLax] 17 gram/dose powder 17 g PO DAILY famotidine [Pepcid] 20 mg tablet 20 mg PO QHS pyridoxine (vitamin B6) 100 mg tablet 100 mg PO DAILY levofloxacin 750 mg Tablet 750 mg PO DAILY@0600 Qty: 6 0RF cholecalciferol (vitamin D3) 25 mcg (1,000 unit) capsule 25 mcg PO DAILY magnesium oxide 500 mg tablet 500 mg PO DAILY memantine 5 mg tablet 5 mg PO BID nabumetone 750 mg tablet 750 mg PO BID escitalopram oxalate [Lexapro] 10 mg tablet 10 mg PO DAILY quetiapine 100 mg tablet 25 mg PO DAILY amlodipine 5 mg tablet 5 mg PO DAILY meclizine 25 MG tablet 25 mg PO TID calcitriol 0.5 mcg capsule 0.5 mcg PO DAILY Rx Instructions: please discontinue any rx for calcitriol by an other doctors albuterol sulfate [Proventil HFA] 90 mcg/actuation HFA aerosol inhaler 2 puff inhalation Q6H PRN (Reason: shortness of breath or wheezing) Qty: 8.5 0RF clonazepam 1 mg tablet 1 mg PO BID Qty: 6 0RF pregabalin 75 mg capsule 75 mg PO TID Qty: 9 0RF levothyroxine 125 mcg tablet 125 mcg PO DAILY Qty: 90 0RF Primary Care Provider: Erica Richardson Referrals: Erica Richardson DO [Primary Care Provider] - Activity Restrictions/Additional Instructions: Thank you for trusting us with your care today! Please take Tylenol (2 pills, 650 mg), ibuprofen (2 pills, 400 mg) every 6 hours as needed for pain and fever control. Please return to the emergency department if your symptoms change or worsen. Please follow with your primary care physician for further outpatient evaluation and management. Disposition Disposition: Home, Self Care
--- NOTE | 2023-08-20 13:27 | CT_ITS ---
STUDY: CT CERVICAL SPINE WITHOUT CONTRAST REASON FOR EXAM: Female, 77 years old. fall, neck pain RADIATION DOSAGE (If Supplied By Facility): CTDIvol = ( 13.34 ) mGy, DLP = ( 224.01 ) mGycm TECHNIQUE: High resolution transaxial imaging was performed without contrast material. Sagittal and coronal images were reconstructed. Individualized dose optimization techniques were used for this CT. COMPARISON: None FINDINGS: No definite acute fracture/dislocation. The cervical junction is intact. C1-C2 articulation is intact. Curvature is within normal limits. There is normal alignment. Facet joints are intact at all levels bilaterally. No jumped facets. There is multilevel spondyloarthropathy. Multilevel degenerative disc disease seen. Multilevel loss of disc height. Multilevel posterior marginal osteophytes and disc bulges. Multilevel neural foraminal narrowing. There is scarring in the left apex, otherwise unremarkable paraspinal soft tissues and structures are unremarkable. CT/Spine Cervical without Contras IMPRESSION: There is no definite acute fracture/dislocation. Degenerative changes. Electronically Signed: Danny Nair MD at 16:26 EDT ,
--- NOTE | 2023-08-20 13:27 | CT_ITS ---
STUDY: CT BRAIN WITHOUT CONTRAST REASON FOR EXAM: Female, 77 years old. Head trauma r/o ICH RADIATION DOSAGE (If Supplied By Facility): CTDIvol = ( 44.99 ) mGy, DLP = ( 812.98 ) mGycm TECHNIQUE: Transaxial CT imaging of the brain was performed without administration of intravenous contrast material. Individualized dose optimization techniques were used for this CT. COMPARISON: Comparison is made with prior study July 02, 2022. FINDINGS: Normal soft tissue structures. Normal calvarium. There is moderate cerebral atrophy with widening of the extra-axial spaces and ventricular dilatation. There are areas of decreased attenuation within the white matter tracts of the supratentorial brain, consistent with microvascular disease changes. Normal basal ganglia and thalami. Normal brainstem. Normal cerebellum. There is no intracranial hemorrhage. There are no findings of an acute ischemic infarction. Atherosclerotic plaque formation of the internal carotid arteries bilaterally. Normal visualized paranasal sinuses. CT/Brain/Head without Contrast IMPRESSION: Chronic involutional changes of the brain. Electronically Signed: Franki Glez MD at 15:45 EDT ,
[2023-08-20] MEDS: Diphth,Pertuss(Acell),Tet Vac 0.5 ML Vial IM (14:10)
[2023-08-20] MEDS: Lidocaine/Epi/Tetracaine 50 ML 1 APPLIC TOPICAL (14:10)
[2023-08-20 16:10] VITALS: BP 164/85; PULSE 79; RESP 16; O2SAT 95
--- NOTE | 2023-08-20 16:20 | ED.RN ---
PT ASKING TO HAVE HER DAUGHTER CALLED TO SEE IF DAUGHTER WOULD DRIVE UP FROM [place] TO TAKE PT HOME. PT STATES I DON'T TRUST MY AIDES TO TAKE ME HOME. DAUGHTER REPORTS THAT PT'S PCP, DR HILTON, THINKS PT MAY HAVE SCHIZOPHRENIA AND THAT PT WILL MAKE STATEMENTS LIKE THAT BUT THE LIVE[employer]IN [employer] ARE OK AND WILL NEED TO BE CALLED WHEN PT IS DISCHARGED FROM THE HOSP. JAREN CARR,CHARGE NURSE, TO THE SITUATION.
--- NOTE | 2023-08-20 16:40 | ED.RN ---
PT INFORMED THAT HER DAUGHTER SAID THAT IT IS OK TO GO HOME WITH [employer], REDDY. PT AGREEABLE TO GOING HOME WITH REDDY. THIS NURSE SPOKE TO [employer] WHO STATES SHE WILL COME GET PT.
[2023-08-20 17:53] VITALS: BP 158/80; PULSE 80; RESP 16; TEMP 36.7; O2SAT 97
== END 2023-08-20 17:54 | disposition home or self-care (01) ==
PROVIDERS: Emergency Provider Emergency Medicine; PCP Family Medicine; Visit Provider Emergency Medicine
DX: S06.0X0A Concussion without loss of consciousness, initial encounter (principal); W19.XXXA Unspecified fall, initial encounter; S01.91XA Laceration without foreign body of unspecified part of head, initial encounter; F41.9 Anxiety disorder, unspecified; Z87.891 Personal history of nicotine dependence; F10.10 Alcohol abuse, uncomplicated; K21.9 Gastro-esophageal reflux disease without esophagitis; E03.9 Hypothyroidism, unspecified; Z23 Encounter for immunization
CPT/HCPCS: 12001; 70450; 72125; 90715; 99282

== ENCOUNTER → 2023-10-10 | Outpatient (CLI) | payer MEDICARE, BC, SELFPAY ==
[2023-10-10 15:20] LABS: Absolute Lymphocyte Count 2.05 X10^3/uL (0.83-4.51); Absolute Neutrophil Count 5.1 X10^3/uL (2.0-7.7); Basophil# 0.08 X10^3/uL; Basophil% 0.9 % (0-1); Eosinophil# 0.47 X10^3/uL; Eosinophils% 5.5 % (0-5); Hematocrit 38.1 % (37-47); Hemoglobin 12.2 g/dL (12.0-15.0); Lymphocyte # 2.05 X10^3/ul (0.83-4.51); Lymphocyte % 24.2 % (19-41); Mean Corpuscular Hgb 32.3 pg (27.0-32.0); Mean Corpuscular Volume 100.8 fL (81-99); Mean Platelet Vol. 12.7 fl (6.2-12.0); Monocyte# 0.71 X10^3/uL; Monocyte% 8.4 % (0-10); NRBC Flagged by Analyzer 0 % (0-5); Neutrophil # 5.12 X10^3/uL (2.7-7.7); Neutrophil % 60.5 % (47-70); Platelet Count 246 K/mm3 (150-450); RBC Distribution Width CV 13.1 % (11.6-14.6); RBC Distribution Width SD 47.9 fl (35.1-43.9); Red Blood Count 3.78 M/mm3 (4.2-5.4); White Blood Count 8.5 K/mm3 (4.4-11.0)
[2023-10-10 15:47] LABS: ALB/GLOB Ratio 0.9 RATIO (0.9-2.4); AST(SGOT) 25 U/L (15-37); Alanine Aminotransfer ALT/SGPT 21 U/L (13-56); Albumin, Serum 3.5 g/dL (3.2-5.0); Alkaline Phosphatase 83 U/L (45-117); Anion Gap 8 (5-15); BUN 13 mg/dL (7-18); BUN/Creat Ratio 14.7 RATIO (10-20); Calcium,Total 8.7 mg/dL (8.5-10.1); Chloride 101 mmol/L (98-107); Creatinine, Serum 0.88 mg/dL (0.55-1.02); EST Glomerular Filtration Rate 66 mL/min (>60); Est Glom Filt Rate - Afr Amer 80 mL/min (>60); Globulin 3.9 g/dL (2.2-4.2); Glucose 96 mg/dL (74-106); Potassium 3.8 mmol/L (3.5-5.1); Protein, Total 7.4 g/dL (6.4-8.2); Sodium Level 136 mmol/L (136-145)
== END | disposition home or self-care (01) ==
PROVIDERS: PCP Family Medicine; Referring Provider Family Medicine; Visit Provider Family Medicine
DX: R41.89 Other symptoms and signs involving cognitive functions and awareness (principal); Z51.81 Encounter for therapeutic drug level monitoring; R30.0 Dysuria
CPT/HCPCS: 36415; 80053; 85025; 87077; 87086; 87088; 87186

== ENCOUNTER → 2023-12-12 | Outpatient (CLI) | payer MEDICARE, BC, SELFPAY ==
[2023-12-12 12:06] LABS: Erythrocyte Sedimentation Rate 12 mm/hr (0-30)
[2023-12-12 12:24] LABS: Absolute Lymphocyte Count 1.28 X10^3/uL (0.83-4.51); Absolute Neutrophil Count 9.6 X10^3/uL (2.0-7.7); Basophil# 0.07 X10^3/uL; Basophil% 0.6 % (0-1); Eosinophil# 0.35 X10^3/uL; Eosinophils% 2.9 % (0-5); Hematocrit 39.3 % (37-47); Hemoglobin 12.4 g/dL (12.0-15.0); Lymphocyte # 1.28 X10^3/ul (0.83-4.51); Lymphocyte % 10.5 % (19-41); Mean Corp Hgb Conc 31.6 g/dL (32-36); Mean Corpuscular Hgb 32.5 pg (27.0-32.0); Mean Corpuscular Volume 102.9 fL (81-99); Mean Platelet Vol. 13.1 fl (6.2-12.0); Monocyte# 0.95 X10^3/uL; Monocyte% 7.8 % (0-10); NRBC Flagged by Analyzer 0 % (0-5); Neutrophil # 9.55 X10^3/uL (2.7-7.7); Platelet Count 215 K/mm3 (150-450); RBC Distribution Width CV 13.2 % (11.6-14.6); RBC Distribution Width SD 49.6 fl (35.1-43.9); Red Blood Count 3.82 M/mm3 (4.2-5.4); White Blood Count 12.2 K/mm3 (4.4-11.0)
[2023-12-12 12:30] LABS: Vitamin D,25 Hydroxy 29.4 ng/mL
[2023-12-12 12:42] LABS: ALB/GLOB Ratio 0.9 RATIO (0.9-2.4); AST(SGOT) 21 U/L (15-37); Alanine Aminotransfer ALT/SGPT 22 U/L (13-56); Albumin, Serum 3.8 g/dL (3.2-5.0); Alkaline Phosphatase 90 U/L (45-117); Anion Gap 7 (5-15); BUN 12 mg/dL (7-18); BUN/Creat Ratio 12.5 RATIO (10-20); Calcium,Total 9.1 mg/dL (8.5-10.1); Chloride 103 mmol/L (98-107); Creatinine, Serum 0.96 mg/dL (0.55-1.02); EST Glomerular Filtration Rate 60 mL/min (>60); Est Glom Filt Rate - Afr Amer 72 mL/min (>60); Free T3 2.2 pg/mL (2.18-3.98); Globulin 4.2 g/dL (2.2-4.2); Glucose 99 mg/dL (74-106); Potassium 3.6 mmol/L (3.5-5.1); Rheumatoid Factor < 10.0 IU/mL (<15); Sodium Level 140 mmol/L (136-145); T4 Free Direct 1.32 ng/dL (0.76-1.46)
[2023-12-13 11:09] LABS: CCP IgG Antibodies 3 units (0-19)
[2023-12-13 12:09] LABS: ANTINUCLEAR ANTIBODIES DIRECT Negative (Negative)
== END | disposition home or self-care (01) ==
PROVIDERS: PCP Family Medicine; Referring Provider Family Medicine; Visit Provider Family Medicine
DX: M06.9 Rheumatoid arthritis, unspecified (principal); M25.50 Pain in unspecified joint; Z51.81 Encounter for therapeutic drug level monitoring; E03.9 Hypothyroidism, unspecified; M79.10 Myalgia, unspecified site
CPT/HCPCS: 36415; 80053; 82306; 84439; 84443; 84481; 85025; 85652; 86038; 86140; 86200; 86431

== ENCOUNTER 2023-12-18 19:53 | Emergency (ER) | payer MEDICARE, BC, SELFPAY ==
[2023-12-18 19:56] VITALS: BP 141/78; PULSE 83; RESP 16; TEMP 36.6; O2SAT 95
[2023-12-18] MEDS: Diphth,Pertuss(Acell),Tet Vac 0.5 ML Vial IM (20:40)
[2023-12-18] MEDS: Lidocaine 1% (20 ml mdv) 20 ML Vial INFILT (20:40)
--- NOTE | 2023-12-18 20:41 | EX.ED.GENINJ ---
HPI History of Present Illness Chief Complaint: Head Injury Detail of Chief Complaint: Mechanical fall with contusion and laceration right side of forehead Informant: patient and other (Live-in aide) Onset/Context/Timing Onset: Hours Mechanism/Context: Blunt Injury and Fall (From standing height. Patient uses a walker) Location of pain/injuries: - (Patient denies any pain.) Location: Injury right forehead Current Severity: 0/10 Maximum Severity: 0/10 Worsened by: Nothing Relieved by: Not applicable Associated Symptoms Associated Symptoms: Negative for Parasthesias, Weakness, Loss of function, Inability to ambulate, Loss of consciousness or Amnesia Narrative Narrative: Patient is a 78-year-old woman who had a mechanical fall. She hit her head in the restroom. She was not dazed and had no loss of conscious. She denies headache. Denies neck pain. She denies double vision, blurred vision loss of vision. She is status post cataract surgery. She denies epistaxis. Denies dental trauma. Denies jaw pain. Denies neck pain. Denies paresthesia, anesthesia or motor weakness upper lower extremity from baseline. She denies cardiac or respiratory symptoms. She denies nausea, vomiting or diarrhea. She is not on antithrombotic or anticoagulant. Tetanus Immunization: Unknown Prior similar symptoms: No Recent Illness/Hospitalization: No PFSH PFSH Medical History Anxiety and depression Hypoparathyroidism after procedure Back problem Frequent falls Benzodiazepine dependence Opioid dependence Melanoma Tobacco abuse Hypothyroidism GERD (gastroesophageal reflux disease) Anemia Alcohol abuse Hypertension Multiple rib fractures Subdural hematoma Vitamin D deficiency Skin cancer Rheumatoid arthritis High cholesterol Calcium deficiency Glaucoma Breast cancer Arthritis Home Medications ?Medication ?Instructions ?Recorded ?Last Taken ?Type potassium chloride 20 mEq 40 meq PO DAILY SUPPLEMENT 08/01/20 11/22/22 History tablet,extended release(part/cryst) valacyclovir 1 gram tablet 1,000 mg PO DAILY SHINGLES 08/01/20 11/22/22 History dexamethasone sodium phosphate 0.1 1 drp ophthalmic (eye) DAILY 03/09/21 11/22/22 History % eye drops glaucoma hydrocodone 10 mg-acetaminophen 1 tab PO Q6H PAIN 06/11/21 11/22/22 History 325 mg tablet clonazepam 1 mg tablet 1 mg PO BID #6 tabs 03/03/22 11/22/22 Rx pregabalin 75 mg capsule 75 mg PO TID PAIN #9 caps 03/03/22 11/22/22 Rx amlodipine 5 mg tablet 5 mg PO DAILY 11/22/22 11/22/22 History calcitriol 0.5 mcg capsule 0.5 mcg PO DAILY 11/22/22 11/22/22 History cholecalciferol (vitamin D3) 25 25 mcg PO DAILY SUPPLEMENT 11/22/22 11/22/22 History mcg (1,000 unit) capsule escitalopram oxalate 10 mg tablet 10 mg PO DAILY ANXIETY 11/22/22 11/22/22 History (Lexapro) magnesium oxide 500 mg PO DAILY SUPPLEMENT 11/22/22 11/22/22 History meclizine 25 mg tablet 25 mg PO TID Dizziness 11/22/22 11/22/22 History memantine 5 mg tablet 5 mg PO BID 11/22/22 11/22/22 History nabumetone 750 mg tablet 750 mg PO BID 11/22/22 11/22/22 History quetiapine 100 mg tablet 25 mg PO DAILY DEPRESSION 11/22/22 11/22/22 History albuterol sulfate 90 mcg/actuation 2 puff inhalation Q6H PRN 11/23/22 Unknown Rx aerosol inhaler (Proventil HFA) shortness of breath or wheezing #8.5 grams levothyroxine 125 mcg tablet 125 mcg PO DAILY #90 tabs 02/19/23 Unknown Rx acetaminophen 500 mg capsule 500 mg PO BID 05/19/23 Unknown History famotidine 20 mg tablet (Pepcid) 20 mg PO QHS 05/19/23 Unknown History polyethylene glycol 3350 17 17 g PO DAILY 05/19/23 Unknown History gram/dose oral powder (ClearLax) pyridoxine (vitamin B6) 100 mg 100 mg PO DAILY 05/19/23 Unknown History tablet levofloxacin 750 mg tablet 750 mg PO DAILY@0600 #6 tabs 05/21/23 Unknown Rx Allergy/AdvReac Type Severity Reaction Status Date / Time bacitracin (From Neosporin Allergy Unknown Unknown Verified 12/18/23 19:57 ([id number])) neomycin (From Neosporin Allergy Unknown Unknown Verified 12/18/23 19:57 ([id number])) polymyxin B (From Neosporin Allergy Unknown Unknown Verified 12/18/23 19:57 ([id number])) Antihistamines - Alkylamine Allergy PT UNSURE Verified 12/18/23 19:57 OF REACTION diphenhydramine (From Allergy PT UNSURE Verified 12/18/23 19:57 Benadryl) OF REACTION Family History Unknown Thyroid disorder Cancer High cholesterol Arthritis Mother Cancer Diabetes Father , Father at the age of 50 from successful suicide attempt. Suicidal intent Other Alcohol abuse Anxiety Depression Heart disease Hypertension Mental disorder Parkinson disease Psychiatric care Surgical History Status post glaucoma surgery H/O mastectomy H/O thyroidectomy Social History household members: none Smoking Status: Former smoker second hand exposure: Yes alcohol intake: current alcohol intake frequency: 3 or more drinks per day substance use type: does not use ROS ROS ED Constitutional Constitutional ED: Denies chills, fever(s), subjective or sweats Eyes Eyes: Denies blurry vision or change in vision ENT ENT ED: Denies rhinorrhea or sore throat Cardiovascular Cardiovascular: Denies chest pain, palpitations or racing heartbeat Respiratory/Chest Respiratory/Chest: Denies cough, dyspnea or dyspnea on exertion Gastrointestinal Gastrointestinal: Denies abdominal pain, nausea or vomiting Musculoskeletal Musculoskeletal: Denies arthralgias, back pain, myalgias or neck pain Integumentary Reports other Details: Forehead laceration ; Denies rash Neurologic Neurologic: Denies headache(s), paresthesias or weakness Hematologic/Lymphatic Hematologic/Lymphatic: Denies easy bleeding or easy bruising EXAM Physical Exam Const Vital Signs: 12/18/23 19:56 Temperature 97.9 F Temperature Source Temporal Pulse Rate 83 Respiratory Rate 16 Blood Pressure 141/78 H Blood Pressure Mean 99 Pulse Ox 95 Oxygen Delivery Method Room Air Positive well nourished and well developed General Appearance ED: well developed and NAD HEENT Reports TM's clear HEENT Narrative: Patient has a subcutaneous contusion right forehead with a laceration is linear and will require suturing. There is no palpable depression. No confines of basilar skull fracture. trauma Nose: Negative for septum abnormal Tympanic Membrane ED: Yes TM's clear Eyes PERRL and EOMs intact bilaterally General Eye ED: Yes other Other Details: There is no subconjunctival hemorrhage. Neck full ROM Neck Narrative: There is no pain ovation of the neck posteriorly midline. She has full active range of motion without pain. Resp normal respiratory effort and clear to auscultation bilaterally Cardio regular rhythm, S1 normal heart sound, S2 normal heart sound and no murmurs Rate: regular rate GI normal to inspection, nondistended, normoactive bowel sounds, non-tender, non-distended and no masses Back/Spine normal to inspection Thoracic Spine / Upper Back: Negative for thoracic spinal tenderness Extremity normal to inspection and full ROM General Extremety ED: Yes edema General Extremity: edema Neuro oriented x3, CN's II-XII intact bilaterally, moves all extremities, no focal motor deficits and no sensory deficits noted [place] Coma Scale: document GCS findings Spontaneous Obeys Commands Oriented 15 Sensorium / Orientation: alert Motor Exam: strength 5/5 throughout Deep Tendon Reflexes: Rt Triceps (C7): 2+, Lt Triceps (C7): 2+, Rt Biceps (C5, C6): 2+, Lt Biceps (C5, C6): 2+, Rt Brachioradialis (C6): 2+, Lt Brachioradialis (C6): 2+, Rt Patellar (L4): 2+, Lt Patellar (L4): 2+, Rt Ankle (S1): 2+ and Lt Ankle (S1): 2+ Deep Tendon Reflexes Back: Rt Patellar (L4): 2+, Lt Patellar (L4): 2+, Rt Ankle (S1): 2+ and Lt Ankle (S1): 2+ Plantar Reflex: Downgoing: bilateral (There is no clonus at the ankles.) Psych mental status grossly normal and thought process normal Skin no rashes or lesions noted, No no wounds, skin turgor normal and no jaundice PROC Procedures Other Procedures Procedure(s): Patient is a forehead laceration which will require repair. The wound was cleansed. Total length is 2 cm. The wound was anesthetized by local titration using 1% lidocaine without epinephrine. Total of 1.5 cc was infiltrated. A total of 4 stitches placed using 6-0 Ethilon. Patient tolerated procedure. MDM MDM MDM Narrative Medical decision making narrative: Since patient is on no antithrombotic or anticoagulant no loss of consciousness no complaint of headache normal neuroexam imaging of the head was not obtained. C-spine was cleared per Nexus criteria. Will have nurse cleanse wound and then anesthetized the wound and suture. This will be documented under the procedure portion of the EMR. Discharge Plan Triage Chief Complaint: Head Injury ED Provider: Jorge Cardona Dx/Rx/DC Orders Clinical Impression: Forehead laceration, Neuropathic pain, Injury due to fall Instructions: ED Laceration, All Closures, ED Laceration Minimize Scars Prescriptions: No Action valacyclovir 1 gram tablet 1,000 mg PO DAILY potassium chloride 20 mEq tablet,ER particles/crystals 40 meq PO DAILY dexamethasone sodium phosphate 0.1 % drops 1 drp ophthalmic (eye) DAILY Rx Instructions: RIGHT EYE hydrocodone-acetaminophen 10-325 mg tablet 1 tab PO Q6H acetaminophen 500 mg capsule 500 mg PO BID polyethylene glycol 3350 [ClearLax] 17 gram/dose powder 17 g PO DAILY famotidine [Pepcid] 20 mg tablet 20 mg PO QHS pyridoxine (vitamin B6) 100 mg tablet 100 mg PO DAILY levofloxacin 750 mg Tablet 750 mg PO DAILY@0600 Qty: 6 0RF cholecalciferol (vitamin D3) 25 mcg (1,000 unit) capsule 25 mcg PO DAILY magnesium oxide 500 mg tablet 500 mg PO DAILY memantine 5 mg tablet 5 mg PO BID nabumetone 750 mg tablet 750 mg PO BID escitalopram oxalate [Lexapro] 10 mg tablet 10 mg PO DAILY quetiapine 100 mg tablet 25 mg PO DAILY amlodipine 5 mg tablet 5 mg PO DAILY meclizine 25 MG tablet 25 mg PO TID calcitriol 0.5 mcg capsule 0.5 mcg PO DAILY Rx Instructions: please discontinue any rx for calcitriol by an other doctors albuterol sulfate [Proventil HFA] 90 mcg/actuation HFA aerosol inhaler 2 puff inhalation Q6H PRN (Reason: shortness of breath or wheezing) Qty: 8.5 0RF clonazepam 1 mg tablet 1 mg PO BID Qty: 6 0RF pregabalin 75 mg capsule 75 mg PO TID Qty: 9 0RF levothyroxine 125 mcg tablet 125 mcg PO DAILY Qty: 90 0RF Primary Care Provider: Erica Richardson Referrals: Erica Richardson DO [Primary Care Provider] - 5 Days for suture removal Print Language: Occitan Disposition Disposition: Home, Self Care
[2023-12-18 22:06] VITALS: BP 117/65; PULSE 82; RESP 20; TEMP 36.2; O2SAT 92
== END 2023-12-18 22:08 | disposition home or self-care (01) ==
PROVIDERS: Emergency Provider Emergency Medicine; PCP Family Medicine; Visit Provider Emergency Medicine
DX: S01.81XA Laceration without foreign body of other part of head, initial encounter (principal); I10 Essential (primary) hypertension; Z87.891 Personal history of nicotine dependence; W19.XXXA Unspecified fall, initial encounter; M79.2 Neuralgia and neuritis, unspecified; Y92.89 Other specified places as the place of occurrence of the external cause; Z85.828 Personal history of other malignant neoplasm of skin; E78.00 Pure hypercholesterolemia, unspecified; Z85.3 Personal history of malignant neoplasm of breast; F41.8 Other specified anxiety disorders; E03.9 Hypothyroidism, unspecified; Z79.899 Other long term (current) drug therapy; K21.9 Gastro-esophageal reflux disease without esophagitis; Z90.10 Acquired absence of unspecified breast and nipple
CPT/HCPCS: 12011; 90715; 99282; A4216

== ENCOUNTER 2024-03-02 21:53 | Emergency (ER) | payer MEDICARE, BC, SELFPAY ==
[2024-03-02 21:57] VITALS: BP 158/95; PULSE 83; RESP 16; TEMP 36.7; O2SAT 94; BMI 28.7
[2024-03-02 23:29] VITALS: BP 156/90; PULSE 82; RESP 16; TEMP 36.6; O2SAT 95
== END 2024-03-02 23:29 | disposition home or self-care (01) ==
PROVIDERS: Emergency Provider Emergency Medicine; PCP Family Medicine; Visit Provider Emergency Medicine
DX: I49.8 Other specified cardiac arrhythmias (principal); I10 Essential (primary) hypertension; Z87.891 Personal history of nicotine dependence; K21.9 Gastro-esophageal reflux disease without esophagitis; E78.00 Pure hypercholesterolemia, unspecified; E66.9 Obesity, unspecified; W19.XXXA Unspecified fall, initial encounter
CPT/HCPCS: 93005; 99284

== ENCOUNTER → 2024-04-24 | Outpatient (CLI) | payer MEDICARE, BC, SELFPAY | END | disposition home or self-care (01) | LOC: LABSPEC 15:20 | PROVIDERS: PCP Family Medicine; Referring Provider Family Medicine; Visit Provider Family Medicine | DX: R30.0 Dysuria (principal) | CPT/HCPCS: 87086; 87088; 87186 ==

== ENCOUNTER → 2024-05-27 | Outpatient (CLI) | payer MEDICARE, BC, SELFPAY ==
[2024-05-27 18:21] LABS: Erythrocyte Sedimentation Rate 35 mm/hr (0-30)
[2024-05-27 18:23] LABS: Absolute Lymphocyte Count 1.94 X10^3/uL (0.83-4.51); Absolute Neutrophil Count 5.9 X10^3/uL (2.0-7.7); Basophil# 0.07 X10^3/uL; Basophil% 0.8 % (0-1); Eosinophil# 0.35 X10^3/uL; Eosinophils% 3.8 % (0-5); Hematocrit 39.2 % (37-47); Hemoglobin 12.6 g/dL (12.0-15.0); Lymphocyte # 1.94 X10^3/ul (0.83-4.51); Lymphocyte % 21.2 % (19-41); Mean Corp Hgb Conc 32.1 g/dL (32-36); Mean Corpuscular Volume 99.5 fL (81-99); Mean Platelet Vol. 12.7 fl (6.2-12.0); Monocyte# 0.82 X10^3/uL; NRBC Flagged by Analyzer 0 % (0-5); Neutrophil # 5.92 X10^3/uL (2.7-7.7); Neutrophil % 64.9 % (47-70); Platelet Count 239 K/mm3 (150-450); RBC Distribution Width SD 51.3 fl (35.1-43.9); Red Blood Count 3.94 M/mm3 (4.2-5.4); White Blood Count 9.1 K/mm3 (4.4-11.0)
[2024-05-27 19:10] LABS: ALB/GLOB Ratio 0.9 RATIO (0.9-2.4); AST(SGOT) 17 U/L (15-37); Alanine Aminotransfer ALT/SGPT 20 U/L (13-56); Albumin, Serum 3.6 g/dL (3.2-5.0); Alkaline Phosphatase 90 U/L (45-117); Anion Gap 11 (5-15); BUN 12 mg/dL (7-18); BUN/Creat Ratio 15.1 RATIO (10-20); CRP 6.23 mg/L (0.0-3.0); Calcium,Total 8.8 mg/dL (8.5-10.1); Chloride 99 mmol/L (98-107); Creatinine, Serum 0.79 mg/dL (0.55-1.02); EST Glomerular Filtration Rate 75 mL/min (>60); Est Glom Filt Rate - Afr Amer 90 mL/min (>60); Globulin 4.1 g/dL (2.2-4.2); Glucose 87 mg/dL (74-106); Potassium 3.9 mmol/L (3.5-5.1); Protein, Total 7.7 g/dL (6.4-8.2); Sodium Level 136 mmol/L (136-145); T4 Free Direct 1.14 ng/dL (0.76-1.46)
== END | disposition home or self-care (01) ==
LOC: BFHLAB 14:22
PROVIDERS: PCP Family Medicine; Visit Provider Family Medicine
DX: E03.9 Hypothyroidism, unspecified (principal); M25.50 Pain in unspecified joint; G93.41 Metabolic encephalopathy; R82.90 Unspecified abnormal findings in urine
CPT/HCPCS: 36415; 80053; 84439; 84443; 84481; 85025; 85652; 86140; 87077; 87086; 87088; 87186

== ENCOUNTER → 2024-06-04 | Outpatient (CLI) | payer MEDICARE, BC, SELFPAY ==
--- NOTE | 2024-06-04 13:47 | RAD_ITS ---
PROCEDURE: CHEST PA AND LATERAL REASON FOR EXAM: Cough. TECHNIQUE: Three-view PA and lateral chest. COMPARISON: AP chest of 05/19/2019. RAD/Chest PA and Lateral IMPRESSION: Generalized osteopenia is seen. Multiple fixed fractures of left ribs and the partially visualized right humeru s noted, similar to the prior study. Central venous catheter positioning unchanged. Lungs are hypoinflated, but no gross acute pneumonic process is seen. No pleural effusion or pneumothorax is evident. The cardiomediastinal silhouette is stable, with a tortuous aorta noted. No ev idence of cardiomegaly. Reading Location: [address]
== END | disposition home or self-care (01) ==
PROVIDERS: PCP Family Medicine; Referring Provider Family Medicine; Visit Provider Family Medicine
DX: R05.9 Cough, unspecified (principal); R06.2 Wheezing
CPT/HCPCS: 71046

== ENCOUNTER 2024-07-04 12:55 | Emergency (ER) | payer MEDICARE, BC, SELFPAY ==
[2024-07-04 12:57] VITALS: BP 152/93; PULSE 70; RESP 16; TEMP 36.7; O2SAT 93; BMI 27.3
--- NOTE | 2024-07-04 13:06 | EDS_ITS ---
HPI History of Present Illness Chief Complaint: General Illness Informant: patient and family Onset/Context/Timing Onset: Days Context: Gradual Onset Timing: Continuous Quality: Weakness Location: Generalized Worsened by: Nothing Relieved by: Nothing Narrative Narrative: Patient presents with generalized weakness and decreased oral intake that has been getting worse over the past several days. Family states the patient is only drinking water when she takes her medications. Family states patient not eating or drinking much of anything. Patient admits to some generalized weakness. Patient denies any recent fevers or chills. Patient denies any nausea or vomiting. The patient denies any neck or back pain. Patient denies any urinary complaints. Family is concerned that this could be due to her medications. [facility] Medical History Anxiety and depression Hypoparathyroidism after procedure Back problem Frequent falls Benzodiazepine dependence Opioid dependence Melanoma Tobacco abuse Hypothyroidism GERD (gastroesophageal reflux disease) Anemia Alcohol abuse Hypertension Multiple rib fractures Subdural hematoma Vitamin D deficiency Skin cancer Rheumatoid arthritis High cholesterol Calcium deficiency Glaucoma Breast cancer Arthritis Home Medications ?Medication ?Instructions ?Recorded ?Last Taken ?Type valacyclovir 1 gram tablet 1,000 mg PO DAILY SHINGLES 08/01/20 11/22/22 History dexamethasone sodium phosphate 0.1 1 drp ophthalmic (e ye) DAILY 03/09/21 0 11/22/22 History % eye drops glaucoma clonazepam 1 mg tablet 1 mg PO BID #6 tabs 03/03/22 11/22/22 Rx pregabalin 75 mg capsule 75 mg PO TID PAIN #9 caps 11/22/22 Rx amlodipine 5 mg tablet 5 mg PO DAILY 11/22/2211/22 History calcitriol 0.5 mcg capsule 0.5 mcg PO DAILY 11/22/22 0 11/22/22 History cholecalciferol (vitamin D3) 25 25 mcg PO DAILY SUPPLE MENT 11/22/22 11/22/22 History mcg (1,000 unit) capsule escitalopram oxalate 10 mg tablet 10 mg PO DAILY ANXIE TY 11/22/22 11/22/22 History (Lexapro) magnesium oxide 500 mg PO DAILY SUPPLEMENT 0 11/22/22 11/22/22 History meclizine 25 mg tablet 25 mg PO TID Dizziness 11/2211/22/22 History memantine 5 mg tablet 5 mg PO BID 11/22/22 3 History nabumetone 750 mg tablet 750 mg PO BID 11/22/2211/22 History quetiapine 100 mg tablet 25 mg PO DAILY DEPRESSION 11/22/22 History albuterol sulfate 90 mcg/actuation 2 puff inhalation Q 6H PRN 11/23/22 Unknown Rx aerosol inhaler (Proventil HFA) shortness of breath or wheezing #8.5 grams levothyroxine 125 mcg tablet 125 mcg PO DAILY #90 tabs 02/19/23 Unknown Rx acetaminophen 500 mg capsule 500 mg PO BID 05/19/23 Un known History famotidine 20 mg tablet (Pepcid) 20 mg PO QHS 05/19/23 Unknown History polyethylene glycol 3350 17 17 g PO DAILY 05/19/23 Unk nown History gram/dose oral powder (ClearLax) pyridoxine (vitamin B6) 100 mg 100 mg PO DAILY 4 Unknown History tablet levofloxacin 750 mg tablet 750 mg PO DAILY@0600 #6 tab s 05/21/23 Unknown Rx liothyronine 5 mcg tablet 5 mcg PO DAILY 07/04/24 Unkn own History potassium chloride 20 mEq 20 meq PO BID 07/04/24 Unkno wn History tablet,extended release quetiapine 25 mg tablet 25 mg PO QHS 07/04/24 Unknow n History Allergy/AdvReac Type Severity Reaction Status Date / Time bacitracin (From Neosporin Allergy Unknown Unknown Verified 07/04/24 13:01 ([id number])) neomycin (From Neosporin Allergy Unknown Unknown Verified 03/02/24 21:55 ([id number])) polymyxin B (From Neosporin Allergy Unknown Unknown Verified 03/02/24 21:55 ([id number])) Antihistamines - Alkylamine Allergy PT UNSURE Verified 03/02/24 21:55 OF REACTION diphenhydramine (From Allergy PT UNSURE Verified 03/02/24 21:55 Benadryl) OF REACTION Family History Unknown Thyroid disorder Cancer High cholesterol Arthritis Mother Cancer Diabetes Father , Father at the age of 50 from successful suicide attempt. Suicidal intent Other Alcohol abuse Anxiety Depression Heart disease Hypertension Mental disorder Parkinson disease Psychiatric care Surgical History Status post glaucoma surgery H/O mastectomy H/O thyroidectomy Social History household members: none Smoking Status: Former smoker second hand exposure: Yes alcohol intake: current alcohol intake frequency: 3 or more drinks per day substance use type: does not use ROS ROS ED Constitutional Constitutional ED: Denies chills or fever(s) Eyes Eyes: Denies blurry vision or change in vision ENT ENT ED: Denies rhinorrhea or sore throat Cardiovascular Cardiovascular: Denies chest pain or palpitations Respiratory/Chest Respiratory/Chest: Denies cough or dyspnea Gastrointestinal Gastrointestinal: Denies nausea or vomiting Genitourinary Genitourinary ED: Denies dysuria or hematuria Musculoskeletal Musculoskeletal: Denies back pain or neck pain Integumentary Denies abscess or rash Neurologic Neurologic: Reports weakness; Denies headache(s) Allergic/Immunologic Allergic/Immunologic ED: Denies mouth swelling or urticaria EXAM Physical Exam Const Vital Signs: 07/04/24 12:57 07/04/24 13:18 07/04/24 15:00 Temperature 98.0 F Temperature Source Oral Pulse Rate 70 68 Respiratory Rate 16 20 H Respiratory Effort Normal Non-Labored Respiratory Pattern Normal Blood Pressure 152/93 H 137/77 H Blood Pressure Mean 112 93 Pulse Ox 93 93 Oxygen Delivery Method Room Air Positive well nourished and well developed General Appearance ED: well developed and NAD HEENT Reports moist mucous membranes Neck supple and no JVD Resp normal respiratory effort and clear to auscultation bilaterally Cardio regular rate and regular rhythm GI non-tender and non-distended Palpation: soft Extremity normal to inspection General Extremety ED: Negative for edema or tenderness General Extremity: Negative for edema Neuro oriented x3, CN's II-XII intact bilaterally and no sensory deficits noted Sensorium / Orientation: alert Motor Exam: general weakness Psych mental status grossly normal MDM MDM MDM Narrative Medical decision making narrative: Differential diagnosis includes pneumonia, cardiac dysrhythmia, cardiac ischemia, electrolyte abnormality, dehydration, urinary tract infection, hypothyroidism, anemia, and viral illness. EKG will be obtained to assess for cardiac dysrhythmia and cardiac ischemia. Chest x-ray will be obtained to assess for pneumonia and bronchitis. CBC will be obtained to assess for leukocytosis and anemia. Comprehensive metabolic profile will be obtained to assess for hepatic function, renal function, and electrolyte abnormality. Urinalysis will be obtained to assess for urinary tract infection and hematuria. TSH will be obtained to assess for hypothyroidism. Lab Data Attestation: I reviewed the patient's lab results. Lab results narrative: CBC was reviewed and was within normal limits. Comprehensive metabolic profile was reviewed and was within normal limits. TSH was reviewed and was low at 0.164. Urinalysis was reviewed. There is no evidence of urinary tract infection or hematuria. Labs: Laboratory Results - last 24 hr 07/04/24 13:55 WBC 9.2 RBC 3.78 L Hgb 12.3 Hct 36.9 L MCV 97.6 MCH 32.5 H MCHC 33.3 RDW Std Deviation 48.0 H RDW Coeff of Felix 13.4 Plt Count 236 MPV 11.8 Immature Gran % (Auto) 0.400 Neut % (Auto) 65.0 Lymph % (Auto) 21.2 [place] % (Auto) 8.9 Eos % (Auto) 3.6 Baso % (Auto) 0.9 Absolute Neuts (auto) 6.0 Absolute Lymphs (auto) 1.95 Nucleated RBC % 0 Sodium 139 Potassium 4.0 Chloride 100 Carbon Dioxide 26.3 Anion Gap 12 BUN 16 Creatinine 0.79 Estim Creat Clear Calc 61.64 Est GFR (MDRD) Non-Af 77 BUN/Creatinine Ratio 20.2 H Glucose 98 Calcium 8.6 Total Bilirubin 0.35 AST 21 ALT 12 Alkaline Phosphatase 82 Total Protein 6.9 Albumin 4.0 Globulin 2.9 Albumin/Globulin Ratio 1.4 TSH 0.164 L Urine Color Straw Urine Clarity Clear Urine pH 8.0 Ur Specific [place] 1.010 Urine Protein Negative Urine Glucose (UA) Normal Urine Ketones Negative Urine Occult Blood Negative Urine Nitrite Negative Urine Bilirubin Negative Urine Urobilinogen Normal Ur Leukocyte Esterase Negative Urine RBC 0 SEEN Urine WBC 0-5 SEEN Ur Squamous Epith Cells 0 SEEN Amorphous Sediment 2+ PHOS Urine Bacteria 0 SEEN Urine Mucus 0 SEEN Radiography Chest X-Ray - ED: 2 View, Read by ED Physician, Read by Radiologist and No Acute Disease Diagnostic Testing: Clinical Impression(s) from Imaging Studies Chest X-Ray 07/04/24 14:00 IMPRESSION: No acute airspace abnormality. Reading Location: [facility] PA and lateral chest x-ray was obtained. There are 2 views. On my independent interpretation, lung hurst are clear. There is normal cardiac silhouette. Bony thorax is normal. There is no acute process noted. Radiologist also interpreted the x-ray and agrees. EKG Initial EKG: Attestation: I personally reviewed and interpreted this EKG as follows: Interpretation: Sinus Rhythm (With occasional PACs with a rate of 73) and No Acute Injury Pattern Comments: EKG was obtained. On my independent interpretation, it showed a normal sinus rhythm with occasional PACs with a rate of 73. NE interval, QRS interval, and QTc intervals were all normal. Lindsey was normal. There are no acute ST or T wave changes. Prior EKG tracings: available for review Prior: Unchanged (03/02/2024) Treatment and Re-Evaluation :: Patient was given IV fluids. Patient and family were advised of the findings. Family states patient has home health aides [id number]. Patient was instructed to drink plenty of fluids. Patient was instructed to advance her diet as tolerated. Patient and family understood and were agreeable with the plan. All questions were answered. Discharge Plan Triage Chief Complaint: General Illness ED Provider: Froy Cameron Dx/Rx/DC Orders Clinical Impression: General weakness, Neuropathic pain Instructions: ED Weakness (Uncertain Cause) Prescriptions: No Action valacyclovir 1 gram tablet 1,000 mg PO DAILY dexamethasone sodium phosphate 0.1 % drops 1 drp ophthalmic (eye) DAILY Rx Instructions: RIGHT EYE acetaminophen 500 mg capsule 500 mg PO BID polyethylene glycol 3350 [ClearLax] 17 gram/dose powder 17 g PO DAILY famotidine [Pepcid] 20 mg tablet 20 mg PO QHS pyridoxine (vitamin B6) 100 mg tablet 100 mg PO DAILY levofloxacin 750 mg Tablet 750 mg PO DAILY@0600 Qty: 6 0RF cholecalciferol (vitamin D3) 25 mcg (1,000 unit) capsule 25 mcg PO DAILY magnesium oxide 500 mg tablet 500 mg PO DAILY memantine 5 mg tablet 5 mg PO BID nabumetone 750 mg tablet 750 mg PO BID escitalopram oxalate [Lexapro] 10 mg tablet 10 mg PO DAILY quetiapine 100 mg tablet 25 mg PO DAILY amlodipine 5 mg tablet 5 mg PO DAILY meclizine 25 MG tablet 25 mg PO TID calcitriol 0.5 mcg capsule 0.5 mcg PO DAILY Rx Instructions: please discontinue any rx for calcitriol by an other doctors albuterol sulfate [Proventil HFA] 90 mcg/actuation HFA aerosol inhaler 2 puff inhalation Q6H PRN (Reason: shortness of breath or wheezing) Qty: 8.5 0RF quetiapine 25 mg tablet 25 mg PO QHS liothyronine 5 mcg tablet 5 mcg PO DAILY potassium chloride 20 mEq tablet extended release 20 meq PO BID clonazepam 1 mg tablet 1 mg PO BID Qty: 6 0RF pregabalin 75 mg capsule 75 mg PO TID Qty: 9 0RF levothyroxine 125 mcg tablet 125 mcg PO DAILY Qty: 90 0RF Primary Care Provider: Erica Richardson Referrals: Erica Richardson DO [Primary Care Provider] - 5-7 Days Print Language: Croatian Disposition Disposition: Home, Self Care
--- NOTE | 2024-07-04 13:26 | EKG12_ITS ---
Test Reason : Blood Pressure : */* mmHG Vent. Rate : 73 BPM Atrial Rate : 73 BPM P-R Int : 160 ms QRS Dur : 76 ms QT Int : 412 ms P-R-T Axes : 47 1 12 degrees QTcB Int : 453 ms Sinus rhythm with Premature atrial complexes Otherwise normal ECG Confirmed by ANIKA CRAMER, MARKUS ([id number]), slot editor JUVENCIO MARIA ([id number]) on 07/06/2024 8:17:29 AM Referred By: ANUPAMA Confirmed By: MARKUS DONALDSON MD
[2024-07-04] MEDS: 0.9% Normal Saline (1000mL) 1,000 ML 1000 ML IV (13:56)
--- NOTE | 2024-07-04 14:00 | RAD_ITS ---
PROCEDURE: CHEST PA AND LATERAL REASON FOR EXAM: COUGH TECHNIQUE: Two views of the chest COMPARISON: 06/04/2024 FINDINGS: Cardiomediastinal silhouette is within normal limits. Lungs are clear. No sizable pneumothorax. Right MediPort catheter in place. Status post left rib plating and fixation of the proximal right humerus. RAD/Chest PA and Lateral IMPRESSION: No acute airspace abnormality. Reading Location: [facility]
[2024-07-04 14:04] LABS: Bacteria 0 SEEN /hpf (None Seen); Mucous, Urine 0 SEEN /hpf (<or=2+); Squamous Epithelial Cells - UA 0 SEEN /hpf (5-10)
[2024-07-04 14:08] LABS: Absolute Lymphocyte Count 1.95 X10^3/uL (0.83-4.51); Basophil# 0.08 X10^3/uL; Basophil% 0.9 % (0-1); Eosinophil# 0.33 X10^3/uL; Eosinophils% 3.6 % (0-5); Hematocrit 36.9 % (37-47); Hemoglobin 12.3 g/dL (12.0-15.0); Lymphocyte # 1.95 X10^3/ul (0.83-4.51); Lymphocyte % 21.2 % (19-41); Mean Corp Hgb Conc 33.3 g/dL (32-36); Mean Corpuscular Hgb 32.5 pg (27.0-32.0); Mean Corpuscular Volume 97.6 fL (81-99); Mean Platelet Vol. 11.8 fl (6.2-12.0); Monocyte# 0.82 X10^3/uL; Monocyte% 8.9 % (0-10); NRBC Flagged by Analyzer 0 % (0-5); Neutrophil # 5.97 X10^3/uL (2.7-7.7); Platelet Count 236 K/mm3 (150-450); RBC Distribution Width CV 13.4 % (11.6-14.6); Red Blood Count 3.78 M/mm3 (4.2-5.4); White Blood Count 9.2 K/mm3 (4.4-11.0)
[2024-07-04 14:10] LABS: Color, Urine Straw (Yellow); Glucose, Dipstick Normal (Normal); Ketone-Dipstick Negative (Negative); Leukocyte Esterase-Dipstick Negative /ul (Negative); Nitrite-Dipstick Negative (Negative); Occult Blood-Urine Negative /ul (Negative); Protein-Dipstick Negative (Negative); Urine Bilirubin Dipstick Negative (Negative); Urine Clarity Clear (Clear); Urine Urobilinogen Normal (Normal)
[2024-07-04 14:21] LABS: Amorphous Sediment 2+ PHOS; Red Blood Cells-Urine 0 SEEN /hpf (0-5); White Blood Cells 0-5 SEEN /hpf (0-5)
[2024-07-04 14:30] LABS: ALB/GLOB Ratio 1.4 RATIO (0.9-2.4); AST(SGOT) 21 U/L (<=31); Alanine Aminotransfer ALT/SGPT 12 U/L (<=34); Alkaline Phosphatase 82 U/L (35-104); Anion Gap 12 (5-15); BUN 16 mg/dL (4-19); BUN/Creat Ratio 20.2 RATIO (10-20); Calcium,Total 8.6 mg/dL (7.6-11.0); Carbon Dioxide 26.3 mmol/L (21.0-32.0); Chloride 100 mmol/L (98-108); Creatinine, Serum 0.79 mg/dL (0.70-1.20); EST Glomerular Filtration Rate 77 (>60); Estimated Creatinine Clearance 61.64 ml/min (50-250); Globulin 2.9 g/dL (2.2-4.2); Glucose 98 mg/dL (70-99); Protein, Total 6.9 g/dL (5.9-8.4); Sodium Level 139 mmol/L (133-145); Thyroid Stim Hormone (TSH) 0.164 uIU/mL (0.300-4.200); Total Bilirubin 0.35 mg/dL (0.00-1.30)
[2024-07-04 15:00] VITALS: BP 137/77; PULSE 68; RESP 20; O2SAT 93
[2024-07-04 16:37] VITALS: BP 167/81; PULSE 77; RESP 16; O2SAT 96
== END 2024-07-04 16:53 | disposition home or self-care (01) ==
PROVIDERS: Emergency Provider Emergency Medicine; PCP Family Medicine; Visit Provider Emergency Medicine
DX: R53.1 Weakness (principal); Z87.891 Personal history of nicotine dependence; I10 Essential (primary) hypertension; K21.9 Gastro-esophageal reflux disease without esophagitis; E78.00 Pure hypercholesterolemia, unspecified; G62.9 Polyneuropathy, unspecified
CPT/HCPCS: 36591; 71046; 80053; 81001; 84443; 85025; 87631; 93005; 96360; 96361; 99285; A4216

== ENCOUNTER → 2024-08-05 | Outpatient (CLI) | payer MEDICARE, BC, SELFPAY | END | disposition home or self-care (01) | LOC: LABSPEC 15:35 | PROVIDERS: PCP Family Medicine; Visit Provider Family Medicine | DX: N39.0 Urinary tract infection, site not specified (principal) | CPT/HCPCS: 87077; 87086; 87088; 87186 ==

== ENCOUNTER → 2024-08-21 | Outpatient (CLI) | payer MEDICARE, BC, SELFPAY | END | disposition home or self-care (01) | PROVIDERS: PCP Family Medicine; Referring Provider Family Medicine; Visit Provider Family Medicine | DX: M43.6 Torticollis (principal) | CPT/HCPCS: 87077; 87086; 87088; 87186 ==

== ENCOUNTER → 2024-09-11 | Outpatient (CLI) | payer MEDICARE, BC, SELFPAY | END | disposition home or self-care (01) | LOC: MTLAB 12:55 | PROVIDERS: PCP Family Medicine; Referring Provider Family Medicine; Visit Provider Family Medicine | DX: M43.6 Torticollis (principal) | CPT/HCPCS: 87077; 87086; 87088; 87186 ==

== ENCOUNTER 2024-09-22 20:04 | Inpatient (IN) | payer MEDICARE, BC, SELFPAY ==
[2024-09-22 20:06] VITALS: BP 121/98; PULSE 88; RESP 16; TEMP 37.5; O2SAT 72; BMI 28.8
[2024-09-22 20:12] VITALS: BP 121/98; PULSE 67; RESP 16; TEMP 37.5; O2SAT 94
--- NOTE | 2024-09-22 20:38 | EKG12_ITS ---
Test Reason : WEAKNESS Blood Pressure : */* mmHG Vent. Rate : 63 BPM Atrial Rate : 63 BPM P-R Int : 148 ms QRS Dur : 70 ms QT Int : 402 ms P-R-T Axes : 43 7 24 degrees QTcB Int : 411 ms Normal sinus rhythm Normal ECG Confirmed by ISAIAH CRAMER, HILL ([id number]), editor continuity and script ONESIMO GRACE ([id number]) on 09/28/2024 7:09:28 AM Referred By: Confirmed By: HILL COLON MD
--- NOTE | 2024-09-22 20:39 | EX.ED.DYSGE1 ---
HPI History of Present Illness Chief Complaint: General Illness Narrative Narrative: 78-year-old female who denies significant past medical history presents via EMS from home. Apparently she had a home health aide come to visit her and reportedly patient has not gotten out of bed since 8 AM. She states that she was up late watching TV and has been tired all day so she was sleeping. She denies any pain, no cough or shortness of breath, states she usually ambulates with a walker. It was reported that the home health aide stated that she has not eaten or drank anything today. Patient has not gotten out of bed for 12 hours which is unusual for her. [facility] Medical History Anxiety and depression Hypoparathyroidism after procedure Back problem Frequent falls Benzodiazepine dependence Opioid dependence Melanoma Tobacco abuse Hypothyroidism GERD (gastroesophageal reflux disease) Anemia Alcohol abuse Hypertension Multiple rib fractures Subdural hematoma Vitamin D deficiency Skin cancer Rheumatoid arthritis High cholesterol Calcium deficiency Glaucoma Breast cancer Arthritis Home Medications ?Medication ?Instructions ?Recorded ?Last Taken ?Type valacyclovir 1 gram tablet 1,000 mg PO DAILY SHINGLES 08/01/20 11/22/22 History dexamethasone sodium phosphate 0.1 1 drp ophthalmic (eye) DAILY 03/09/21 11/22/22 History % eye drops glaucoma clonazepam 1 mg tablet 1 mg PO BID #6 tabs 03/03/22 11/22/22 Rx pregabalin 75 mg capsule 75 mg PO TID PAIN #9 caps 03/03/22 11/22/22 Rx amlodipine 5 mg tablet 5 mg PO DAILY 11/22/22 11/22/22 History calcitriol 0.5 mcg capsule 0.5 mcg PO DAILY 11/22/22 11/22/22 History cholecalciferol (vitamin D3) 25 25 mcg PO DAILY SUPPLEMENT 11/22/22 11/22/22 History mcg (1,000 unit) capsule escitalopram oxalate 10 mg tablet 10 mg PO DAILY ANXIETY 11/22/22 11/22/22 History (Lexapro) magnesium oxide 500 mg PO DAILY SUPPLEMENT 11/22/22 11/22/22 History meclizine 25 mg tablet 25 mg PO TID Dizziness 11/22/22 11/22/22 History memantine 5 mg tablet 5 mg PO BID 11/22/22 11/22/22 History nabumetone 750 mg tablet 750 mg PO BID 11/22/22 11/22/22 History quetiapine 100 mg tablet 25 mg PO DAILY DEPRESSION 11/22/22 11/22/22 History albuterol sulfate 90 mcg/actuation 2 puff inhalation Q6H PRN 11/23/22 Unknown Rx aerosol inhaler (Proventil HFA) shortness of breath or wheezing #8.5 grams levothyroxine 125 mcg tablet 125 mcg PO DAILY #90 tabs 02/19/23 Unknown Rx acetaminophen 500 mg capsule 500 mg PO BID 05/19/23 Unknown History famotidine 20 mg tablet (Pepcid) 20 mg PO QHS 05/19/23 Unknown History polyethylene glycol 3350 17 17 g PO DAILY 05/19/23 Unknown History gram/dose oral powder (ClearLax) pyridoxine (vitamin B6) 100 mg 100 mg PO DAILY 05/19/23 Unknown History tablet levofloxacin 750 mg tablet 750 mg PO DAILY@0600 #6 tabs 05/21/23 Unknown Rx liothyronine 5 mcg tablet 5 mcg PO DAILY 07/04/24 Unknown History potassium chloride 20 mEq 20 meq PO BID 07/04/24 Unknown History tablet,extended release quetiapine 25 mg tablet 25 mg PO QHS 07/04/24 Unknown History hydrocodone 10 mg-acetaminophen tab PO TID 09/22/24 Unknown History 325 mg tablet Allergy/AdvReac Type Severity Reaction Status Date / Time bacitracin (From Neosporin Allergy Unknown Unknown Verified 09/22/24 20:06 ([id number])) neomycin (From Neosporin Allergy Unknown Unknown Verified 09/22/24 20:06 ([id number])) polymyxin B (From Neosporin Allergy Unknown Unknown Verified 09/22/24 20:06 ([id number])) Antihistamines - Alkylamine Allergy PT UNSURE Verified 09/22/24 20:06 OF REACTION diphenhydramine (From Allergy PT UNSURE Verified 09/22/24 20:06 Benadryl) OF REACTION Family History Unknown Thyroid disorder Cancer High cholesterol Arthritis Mother Cancer Diabetes Father , Father at the age of 50 from successful suicide attempt. Suicidal intent Other Alcohol abuse Anxiety Depression Heart disease Hypertension Mental disorder Parkinson disease Psychiatric care Surgical History Status post glaucoma surgery H/O mastectomy H/O thyroidectomy Social History household members: none Smoking Status: Former smoker second hand exposure: Yes alcohol intake: current alcohol intake frequency: 3 or more drinks per day substance use type: does not use ROS ROS ED ROS Narrative Review of systems from patient is negative, denies any pain, denies fever or chills, no nausea or vomiting, denies any symptoms. Per RN, patient hypoxic, EMS reports patient has not gotten out of bed for 12 hours. EXAM Physical Exam Narrative Exam Narrative: Temperature 99.5 ?F, vital signs noted. Cardiovascular examination regular rate and rhythm. Lungs are clear to auscultation bilaterally. Abdomen soft and nontender with normal active bowel sounds. Abdomen soft and nontender without guarding or rebound. Positive bowel sounds. Slowly moves all extremities but noted generalized weakness on examination. Const Vital Signs: 09/22/24 20:06 09/22/24 20:06 09/22/24 20:12 Temperature 99.5 F H 99.5 F H Temperature Source Oral Oral Pulse Rate 88 67 Respiratory Rate 16 16 Respiratory Effort Normal Respiratory Pattern Normal Blood Pressure 121/98 H 121/98 H Blood Pressure Mean 105 105 Pulse Ox 72 94 Oxygen Delivery Method Room Air Nasal Cannula Oxygen Flow Rate (L/min) 2 09/22/24 21:12 09/22/24 22:00 09/22/24 22:21 Temperature 98.1 F 98.1 F Temperature Source Oral Oral Pulse Rate 65 65 Respiratory Rate 18 12 Respiratory Effort Respiratory Pattern Blood Pressure 116/75 126/74 H Blood Pressure Mean 88 91 Pulse Ox 95 100 95 Oxygen Delivery Method Nasal Cannula Nasal Cannula Room Air Oxygen Flow Rate (L/min) 1 1 09/22/24 22:21 Temperature 98.1 F Temperature Source Pulse Rate 68 Respiratory Rate 12 Respiratory Effort Respiratory Pattern Blood Pressure 129/75 H Blood Pressure Mean 93 Pulse Ox 95 Oxygen Delivery Method Oxygen Flow Rate (L/min) MDM MDM MDM Narrative Medical decision making narrative: Differential diagnosis includes but not limited to dehydration versus infectious cause for generalized weakness. If she has been laying in bed all day, she may have rhabdomyolysis as well. Patient bolused normal saline. Comprehensive workup was pursued. EKG was obtained and interpreted by myself independently as normal sinus rhythm at 63 bpm without ectopy or acute ST changes. No STEMI. I reviewed her laboratory work and she has slight leukocytosis of 11.6 which I think is nonspecific, hemoglobin 13.2, hematocrit 39.5, platelet count normal at 259. Potassium is slightly elevated at 5.2 but there is slight hemolysis so I do not feel that she needs Kayexalate. CO2 25.5 with BUN of 13 and creatinine 0.86, no dehydration. Glucose normal at 97. LFTs show an AST of 40 which I think is nonspecific, total creatinine kinase slightly elevated at 316. She was bolused normal saline 1 L intravenously but I do not feel that she is in rhabdomyolysis. Urinalysis was obtained from straight cath and she has positive for nitrites. Imaging studies performed and CT of the brain shows no acute process, no hemorrhage. Chest x-ray in 1 view interpreted by myself independently shows no consolidation or pneumothorax. I reviewed the radiology report which confirms my independent interpretation. I do not feel that she requires antibiotics. Respiratory swab was obtained and she is negative for COVID, influenza, and RSV. I reviewed the microanalysis of the urine, and treat accordingly for UTI. Attempt will be made to ambulate the patient. If she is unable to ambulate, patient will be discussed with the hospitalist for at least observation. I discussed the patient with the RNs who tried to ambulate her, but she was barely able to stand. Given her positive nitrites, I will send a urine culture and start her on Rocephin for presumed urinary tract infection as well. I was able to review the microanalysis and she has 4+ bacteria and 50-100 WBCs. Patient discussed with Dr. Bolton for admission to medical surgical floor. Patient is in stable condition. History & Record Review Discussion w/independent historian: EMS personnel and Patient Additional record(s) reviewed:: Prior ED visit Lab Data Attestation: I reviewed the patient's lab results. Labs: Laboratory Results - last 24 hr 09/22/24 09/22/24 20:33 21:31 WBC 11.6 H RBC 4.04 L Hgb 13.2 Hct 39.5 MCV 97.8 MCH 32.7 H MCHC 33.4 RDW Std Deviation 47.2 H RDW Coeff of Felix 13.1 Plt Count 259 MPV 12.0 Immature Gran % (Auto) 0.400 Neut % (Auto) 69.5 Lymph % (Auto) 18.8 L [place] % (Auto) 7.5 Eos % (Auto) 2.9 Baso % (Auto) 0.9 Absolute Neuts (auto) 8.0 H Absolute Lymphs (auto) 2.17 Nucleated RBC % 0 Sodium 136 Potassium 5.2 H Chloride 100 Carbon Dioxide 25.5 Anion Gap 11 BUN 13 Creatinine 0.86 Estim Creat Clear Calc 58.83 Est GFR (MDRD) Non-Af 70 BUN/Creatinine Ratio 15.0 Glucose 97 Calcium 8.6 Total Bilirubin 0.31 AST 40 H ALT 16 Alkaline Phosphatase 87 Total Creatine Kinase 316 H Total Protein 6.6 Albumin 3.6 Globulin 3.0 Albumin/Globulin Ratio 1.2 Urine Color Cancelled Straw Urine Clarity Cancelled Cloudy Urine pH Cancelled 5.0 Ur Specific [place] Cancelled 1.015 U Specif Grav (Refrac) Cancelled Urine Protein Cancelled 15 H Urine Glucose (UA) Cancelled Normal Urine Ketones Cancelled Negative Urine Occult Blood Cancelled 10 H Urine Nitrite Cancelled Positive H Urine Bilirubin Cancelled Negative Urine Urobilinogen Cancelled Normal Ur Leukocyte Esterase Cancelled 500 H Urine RBC Cancelled 0-5 SEEN Urine WBC Cancelled 50-100 SEEN Ur Squamous Epith Cells Cancelled 0-5 SEEN Ur Transition Epith Cell Cancelled Ur Renal Epithelial Cell Cancelled Calcium Oxalate Crystal Cancelled Uric Acid Crystals Cancelled Triple Phos Crystals Cancelled Other Crystals Cancelled Amorphous Sediment Cancelled Urine Bacteria Cancelled 4+ Hyaline Casts Cancelled Fine Granular Casts Cancelled Coarse Granular Casts Cancelled Waxy Casts Cancelled RBC Casts Cancelled WBC Casts Cancelled Urine Mucus Cancelled 0 SEEN Urine Trichomonas Cancelled Urine Yeast Cancelled Radiography Diagnostic Testing: Clinical Impression(s) from Imaging Studies Brain CT 09/22/24 20:50 IMPRESSION: No acute intracranial abnormality. Reading Location: [place] [id number] Chest X-Ray 09/22/24 20:55 IMPRESSION: No acute cardiopulmonary abnormalities. Reading Location: [place] [id number] Management Discussion w/another healthcare provider: Hospitalist (Dr. Bolton) Discharge Plan Dx/Rx/DC Orders Clinical Impression: Generalized weakness, Fatigue, Unable to ambulate, UTI (urinary tract infection), Elevated CPK Disposition Disposition: Acute Care Hospital [facility]
[2024-09-22] MEDS: 0.9% Normal Saline (1000mL) 1,000 ML 1000 ML IV (20:47)
--- NOTE | 2024-09-22 20:50 | CT_ITS ---
PROCEDURE: BRAIN/HEAD WITHOUT CONTRAST 09/22/2024 REASON FOR EXAM: WEAKNESS TECHNIQUE: Head CT without intravenous contrast. Coronal and Sagittal reconstruction series were provided. One or more dose reduction techniques were used (e.g., Automated exposure control, adjustment of the mA and/or kV according to patient size, use of iterative reconstruction technique. RADIATION DOSE SUMMARY: CTDlvol: 44.99 mGy DLP: 897.35 mGycm COMPARISON: 08/20/2023. FINDINGS: [id number] global parenchymal atrophy. Periventricular white matter hypodensity likely representing chronic microvascular ischemia. No evidence of acute hemorrhage or infarction. No extra-axial blood or fluid collections. The paranasal sinuses are clear. The mastoid air cells are well aerated. The calvarial vault and skull base are intact. CT/Brain/Head without Contrast IMPRESSION: No acute intracranial abnormality. Reading Location: [place] [id number]
--- NOTE | 2024-09-22 20:55 | RAD_ITS ---
PROCEDURE: CHEST 1 VIEW (PORTABLE) 09/22/2024 REASON FOR EXAM: SHORTNESS OF BREATH TECHNIQUE: Frontal view of the chest. COMPARISON: 07/04/2024. FINDINGS: The heart is normal in size. Right chest Port-A-Cath. The lungs are clear. Right humeral plate and screw fixation. Left rib plate and screw fixation. RAD/Chest 1 View (Portable) IMPRESSION: No acute cardiopulmonary abnormalities. Reading Location: [place] [id number]
--- NOTE | 2024-09-22 20:57 | ED.RN ---
Addendum entered by Freddy Mcmullen 09/22/24 22:39: Pt daughter Patricia updated on pt being admitted to [facility]. No further questions at this time. Original Note: Pt daughter Patricia called per pt request. This RN obtained medication list from Patricia. No further questions at this time.
[2024-09-22 21:07] LABS: Absolute Lymphocyte Count 2.17 X10^3/uL (0.83-4.51); Basophil% 0.9 % (0-1); Eosinophil# 0.33 X10^3/uL; Eosinophils% 2.9 % (0-5); Hematocrit 39.5 % (37-47); Hemoglobin 13.2 g/dL (12.0-15.0); Lymphocyte # 2.17 X10^3/ul (0.83-4.51); Lymphocyte % 18.8 % (19-41); Mean Corp Hgb Conc 33.4 g/dL (32-36); Mean Corpuscular Hgb 32.7 pg (27.0-32.0); Mean Corpuscular Volume 97.8 fL (81-99); Monocyte# 0.87 X10^3/uL; Monocyte% 7.5 % (0-10); NRBC Flagged by Analyzer 0 % (0-5); Neutrophil # 8.04 X10^3/uL (2.7-7.7); Neutrophil % 69.5 % (47-70); Platelet Count 259 K/mm3 (150-450); RBC Distribution Width CV 13.1 % (11.6-14.6); RBC Distribution Width SD 47.2 fl (35.1-43.9); Red Blood Count 4.04 M/mm3 (4.2-5.4); White Blood Count 11.6 K/mm3 (4.4-11.0)
[2024-09-22 21:12] VITALS: BP 116/75; PULSE 65; RESP 18; TEMP 36.7; O2SAT 95
[2024-09-22 21:29] LABS: ALB/GLOB Ratio 1.2 RATIO (0.9-2.4); AST(SGOT) 40 U/L (<=31); Alanine Aminotransfer ALT/SGPT 16 U/L (<=34); Albumin, Serum 3.6 g/dL (3.4-4.8); Alkaline Phosphatase 87 U/L (35-104); Anion Gap 11 (5-15); BUN 13 mg/dL (4-19); Calcium,Total 8.6 mg/dL (7.6-11.0); Carbon Dioxide 25.5 mmol/L (21.0-32.0); Chloride 100 mmol/L (98-108); Creatinine, Serum 0.86 mg/dL (0.70-1.20); EST Glomerular Filtration Rate 70 (>60); Estimated Creatinine Clearance 58.83 ml/min (50-250); Glucose 97 mg/dL (70-99); Potassium 5.2 mmol/L (3.3-5.1); Protein, Total 6.6 g/dL (5.9-8.4); Sodium Level 136 mmol/L (133-145); Total Bilirubin 0.31 mg/dL (0.00-1.30)
[2024-09-22 21:36] LABS: Mucous, Urine 0 SEEN /hpf (<or=2+)
[2024-09-22 21:41] LABS: Color, Urine Straw (Yellow); Glucose, Dipstick Normal (Normal); Ketone-Dipstick Negative (Negative); Leukocyte Esterase-Dipstick 500 /ul (Negative); Nitrite-Dipstick Positive (Negative); Occult Blood-Urine 10 /ul (Negative); Protein-Dipstick 15 mg/dl (Negative); Specific Gravity, Urine 1.015 (1.002-1.030); Urine Bilirubin Dipstick Negative (Negative); Urine Clarity Cloudy (Clear); Urine Urobilinogen Normal (Normal)
[2024-09-22 21:43] LABS: CPK Total, Creatine Kinase 316 U/L (24-195)
[2024-09-22 22:00] VITALS: BP 126/74; PULSE 65; RESP 12; TEMP 36.7; O2SAT 100
[2024-09-22 22:15] LABS: Bacteria 4+ /hpf (None Seen); Red Blood Cells-Urine 0-5 SEEN /hpf (0-5); Squamous Epithelial Cells - UA 0-5 SEEN /hpf (5-10); White Blood Cells 50-100 SEEN /hpf (0-5)
--- NOTE | 2024-09-22 22:16 | ED.RN ---
Attempted to ambulate patient with 2 assist, patient unable to stand up. Dr Quijano notified.
[2024-09-22 22:21] VITALS: BP 129/75; PULSE 68; RESP 12; TEMP 36.7; O2SAT 95
[2024-09-22] MEDS: Ceftriaxone 1 GM/50 ML BAG IV (22:31)
--- NOTE | 2024-09-22 22:44 | PCM.HP.STD ---
HPI - General General Date of Admission: 09/22/24 Date of Service: 09/22/24 Chief Complaint: Weakness. HPI Narrative The patient is a 78 y/o F w/ PMHx: HTN, Anxiety and Depression/Mood disorder, Former tobacco use, Former chart reported history EtOH abuse, Hx Frequent falls, Rheumatoid arthritis, Hypothyroidism s/p prior thyroidectomy, GERD, Hx Breast CA unclear type s/p mastectomy in remission, Chart reported history Chronic anemia who presents to the [facility] ED on 09/22/2024 with history of being at home when she was checked on by health aide who noted that she had not been out of bed since at least 8 AM with patient reporting that she been up very late and was very fatigued sleeping throughout the day with no oral intake prompting eventual transition to the ED given concerns for evaluation. Workup in the ED included T99.5, heart rate 88, BP 121/98, respiratory rate 16, initially noted to be 72% on room air with improvement to 95% on 1 L nasal cannula, most recent repeat vitals T98.1, heart rate 68, BP 129/75, CBC with WBC 11.6, hemoglobin 13.2, platelet 259 with left shift, CMP with potassium 5.2 however noted to be hemolyzed, BUN/creatinine 13/0.86, GFR 7, AST 40, total creatinine kinase 316, urinalysis noted to be cloudy, urine protein 15, occult blood 10, positive nitrite, leukocyte esterase 500 with urine WBCs 50-100 with 4+ urine bacteria, urine culture pending per ED, chest x-ray with no acute cardiopulmonary findings, CT brain with no acute intracranial findings. In the ED patient ministered 1 L normal saline and Rocephin 1 g IV x 1. 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 Back problem Frequent falls Benzodiazepine dependence Opioid dependence Melanoma Tobacco abuse Hypothyroidism GERD (gastroesophageal reflux disease) Anemia Alcohol abuse Hypertension Multiple rib fractures Subdural hematoma Vitamin D deficiency Skin cancer Rheumatoid arthritis High cholesterol Calcium deficiency Glaucoma Breast cancer Arthritis Home Medications ?Medication ?Instructions ?Recorded ?Last Taken ?Type valacyclovir 1 gram tablet 1,000 mg PO DAILY SHINGLES 08/01/20 11/22/22 History dexamethasone sodium phosphate 0.1 1 drp ophthalmic (eye) DAILY 03/09/21 11/22/22 History % eye drops glaucoma clonazepam 1 mg tablet 1 mg PO BID #6 tabs 03/03/22 11/22/22 Rx pregabalin 75 mg capsule 75 mg PO TID PAIN #9 caps 03/03/22 11/22/22 Rx amlodipine 5 mg tablet 5 mg PO DAILY 11/22/22 11/22/22 History calcitriol 0.5 mcg capsule 0.5 mcg PO DAILY 11/22/22 11/22/22 History cholecalciferol (vitamin D3) 25 25 mcg PO DAILY SUPPLEMENT 11/22/22 11/22/22 History mcg (1,000 unit) capsule escitalopram oxalate 10 mg tablet 10 mg PO DAILY ANXIETY 11/22/22 11/22/22 History (Lexapro) magnesium oxide 500 mg PO DAILY SUPPLEMENT 11/22/22 11/22/22 History meclizine 25 mg tablet 25 mg PO TID Dizziness 11/22/22 11/22/22 History memantine 5 mg tablet 5 mg PO BID 11/22/22 11/22/22 History nabumetone 750 mg tablet 750 mg PO BID 11/22/22 11/22/22 History quetiapine 100 mg tablet 25 mg PO DAILY DEPRESSION 11/22/22 11/22/22 History albuterol sulfate 90 mcg/actuation 2 puff inhalation Q6H PRN 11/23/22 Unknown Rx aerosol inhaler (Proventil HFA) shortness of breath or wheezing #8.5 grams levothyroxine 125 mcg tablet 125 mcg PO DAILY #90 tabs 02/19/23 Unknown Rx acetaminophen 500 mg capsule 500 mg PO BID 05/19/23 Unknown History famotidine 20 mg tablet (Pepcid) 20 mg PO QHS 05/19/23 Unknown History polyethylene glycol 3350 17 17 g PO DAILY 05/19/23 Unknown History gram/dose oral powder (ClearLax) pyridoxine (vitamin B6) 100 mg 100 mg PO DAILY 05/19/23 Unknown History tablet levofloxacin 750 mg tablet 750 mg PO DAILY@0600 #6 tabs 05/21/23 Unknown Rx liothyronine 5 mcg tablet 5 mcg PO DAILY 07/04/24 Unknown History potassium chloride 20 mEq 20 meq PO BID 07/04/24 Unknown History tablet,extended release quetiapine 25 mg tablet 25 mg PO QHS 07/04/24 Unknown History hydrocodone 10 mg-acetaminophen tab PO TID 09/22/24 Unknown History 325 mg tablet Allergy/AdvReac Type Severity Reaction Status Date / Time bacitracin (From Neosporin Allergy Unknown Unknown Verified 09/22/24 20:06 ([id number])) neomycin (From Neosporin Allergy Unknown Unknown Verified 09/22/24 20:06 ([id number])) polymyxin B (From Neosporin Allergy Unknown Unknown Verified 09/22/24 20:06 ([id number])) Antihistamines - Alkylamine Allergy PT UNSURE Verified 09/22/24 20:06 OF REACTION diphenhydramine (From Allergy PT UNSURE Verified 09/22/24 20:06 Benadryl) OF REACTION Family History Unknown Thyroid disorder Cancer High cholesterol Arthritis Mother Cancer Diabetes Father , Father at the age of 50 from successful suicide attempt. Suicidal intent Other Alcohol abuse Anxiety Depression Heart disease Hypertension Mental disorder Parkinson disease Psychiatric care Surgical History Status post glaucoma surgery H/O mastectomy H/O thyroidectomy Social History household members: none housing: house Smoking Status: Former smoker second hand exposure: Yes alcohol intake: former substance use type: does not use ROS ROS Narrative Admission Review of Systems: CONSTITUTIONAL: No weight loss, fever, chills, + weakness or fatigue. HEENT: Eyes: No visual loss, blurred vision, double vision or yellow sclerae. Ears, Nose, Throat: No hearing loss, sneezing, congestion, runny nose or sore throat. SKIN: No rash or itching, lesions, wounds except + occasional stage ecchymoses, abrasions. CARDIOVASCULAR: No chest pain, chest pressure or chest discomfort, palpitations, edema, orthopnea, syncopal events. RESPIRATORY: No shortness of breath, cough or sputum, wheezing, hemoptysis. GASTROINTESTINAL: No anorexia, nausea, vomiting or diarrhea, abdominal pain, melena, BRBPR. GENITOURINARY: + Urinary frequency. No dysuria, urgency or retention. NEUROLOGICAL: + Underlying dementia. No headache, dizziness, syncope, paralysis, ataxia, numbness or tingling in the extremities, focal weakness, change in bowel or bladder control, seizure. MUSCULOSKELETAL: + muscle, back pain, joint pain or stiffness. HEMATOLOGIC: No anemia, bleeding or bruising. LYMPHATICS: No enlarged nodes. No history of splenectomy. PSYCHIATRIC: + History of anxiety depression/mood disorder. ENDOCRINOLOGIC: No reports of sweating, cold or heat intolerance. No polyuria or polydipsia. ALLERGIES: No history of asthma, hives, eczema or rhinitis. Vital Signs Vital Signs Vital Signs: 09/22/24 20:06 09/22/24 20:06 09/22/24 20:12 Temperature 99.5 F H 99.5 F H Temperature Source Oral Oral Pulse Rate 88 67 Respiratory Rate 16 16 Respiratory Effort Normal Respiratory Pattern Normal Blood Pressure 121/98 H 121/98 H Blood Pressure Mean 105 105 Pulse Ox 72 94 Oxygen Delivery Method Room Air Nasal Cannula Oxygen Flow Rate (L/min) 2 09/22/24 21:12 09/22/24 22:00 09/22/24 22:21 Temperature 98.1 F 98.1 F Temperature Source Oral Oral Pulse Rate 65 65 Respiratory Rate 18 12 Respiratory Effort Respiratory Pattern Blood Pressure 116/75 126/74 H Blood Pressure Mean 88 91 Pulse Ox 95 100 95 Oxygen Delivery Method Nasal Cannula Nasal Cannula Room Air Oxygen Flow Rate (L/min) 1 1 09/22/24 22:21 Temperature 98.1 F Temperature Source Pulse Rate 68 Respiratory Rate 12 Respiratory Effort Respiratory Pattern Blood Pressure 129/75 H Blood Pressure Mean 93 Pulse Ox 95 Oxygen Delivery Method Oxygen Flow Rate (L/min) Weight Weight: 178 lb 12.8 oz Body Mass Index (BMI) 28.8 Physical Exam Narrative Physical Examination: General: Awake, alert, oriented to self, place and year but cannot give month but does have underlying dementia, remains cooperative, aide present notes she seems improved from previous as far as weakness, no acute distress. Skin: Normal color, normal turgor, no icterus, no cyanosis except occasional stage ecchymoses, abrasion. HEENT: AT/NC, EOMI, PERRLA, moderately dry MM, no carotid bruits or JVD noted. Lungs: Mildly diminished, greater bases, appropriate effort, no rales, ronchi or wheezing. Heart: Regular rate and rhythm; no gallop, rub audible. Abdomen: Soft, mild suprapubic discomfort with palpation otherwise nontender abdomen, no marked distention, distant BS, no appreciated HSM. Extremities: No cyanosis, no clubbing, mild ankle not markedly pitting edema Neurological: Patient awake, alert, oriented as noted, cognitive function diminished baseline with underlying dementia currently near baseline per discussion with a, pupils equally reactive to light and accommodation, cranial nerves gross normal, moving all 4 extremities, no focal deficits, strength moderately to severely globally decreased Psychiatric: Affect appears flat, fatigued, no acute evidence of depressive or anxiety feelings but does have underlying history. Results Lab / Micro Data 09/22/24 20:33 09/22/24 20:33 Labs: Laboratory Results - last 24 hr 09/22/24 20:33: WBC 11.6 H, RBC 4.04 L, Hgb 13.2, Hct 39.5, MCV 97.8, MCH 32.7 H, MCHC 33.4, RDW Std Deviation 47.2 H, RDW Coeff of Felix 13.1, Plt Count 259, MPV 12.0, Immature Gran % (Auto) 0.400, Neut % (Auto) 69.5, Lymph % (Auto) 18.8 L, [place] % (Auto) 7.5, Eos % (Auto) 2.9, Baso % (Auto) 0.9, Absolute Neuts (auto) 8.0 H, Absolute Lymphs (auto) 2.17, Nucleated RBC % 0, Sodium 136, Potassium 5.2 H, Chloride 100, Carbon Dioxide 25.5, Anion Gap 11, BUN 13, Creatinine 0.86, Estim Creat Clear Calc 58.83, Est GFR (MDRD) Non-Af 70, BUN/Creatinine Ratio 15.0, Glucose 97, Calcium 8.6, Total Bilirubin 0.31, AST 40 H, ALT 16, Alkaline Phosphatase 87, Total Creatine Kinase 316 H, Total Protein 6.6, Albumin 3.6, Globulin 3.0, Albumin/Globulin Ratio 1.2, Urine Color Cancelled, Urine Clarity Cancelled, Urine pH Cancelled, Ur Specific [place] Cancelled, U Specif Grav (Refrac) Cancelled, Urine Protein Cancelled, Urine Glucose (UA) Cancelled, Urine Ketones Cancelled, Urine Occult Blood Cancelled, Urine Nitrite Cancelled, Urine Bilirubin Cancelled, Urine Urobilinogen Cancelled, Ur Leukocyte Esterase Cancelled, Urine RBC Cancelled, Urine WBC Cancelled, Ur Squamous Epith Cells Cancelled, Ur Transition Epith Cell Cancelled, Ur Renal Epithelial Cell Cancelled, Calcium Oxalate Crystal Cancelled, Uric Acid Crystals Cancelled, Triple Phos Crystals Cancelled, Other Crystals Cancelled, Amorphous Sediment Cancelled, Urine Bacteria Cancelled, Hyaline Casts Cancelled, Fine Granular Casts Cancelled, Coarse Granular Casts Cancelled, Waxy Casts Cancelled, RBC Casts Cancelled, WBC Casts Cancelled, Urine Mucus Cancelled, Urine Trichomonas Cancelled, Urine Yeast Cancelled 09/22/24 21:31: Urine Color Straw, Urine Clarity Cloudy, Urine pH 5.0, Ur Specific [place] 1.015, Urine Protein 15 H, Urine Glucose (UA) Normal, Urine Ketones Negative, Urine Occult Blood 10 H, Urine Nitrite Positive H, Urine Bilirubin Negative, Urine Urobilinogen Normal, Ur Leukocyte Esterase 500 H, Urine RBC 0-5 SEEN, Urine WBC 50-100 SEEN, Ur Squamous Epith Cells 0-5 SEEN, Urine Bacteria 4+, Urine Mucus 0 SEEN Micro: Microbiology 09/22/24 20:33 Mucosa - Nose SARS-CoV-2, Influenza & RSV (PCR) - Final Imaging Radiology Impression Brain CT 09/22/24 20:50 IMPRESSION: No acute intracranial abnormality. Reading Location: [place] [id number] Chest X-Ray 09/22/24 20:55 IMPRESSION: No acute cardiopulmonary abnormalities. Reading Location: [place] [id number] Assessment & Plan Assessment/Plan (1) UTI (urinary tract infection): PLAN: Plan The patient is a 78 y/o F w/ PMHx: HTN, Anxiety and Depression/Mood disorder, Former tobacco use, Former chart reported history EtOH abuse, Hx Frequent falls, Rheumatoid arthritis, Hypothyroidism s/p prior thyroidectomy, GERD, Hx Breast CA unclear type s/p mastectomy in remission, Chart reported history Chronic anemia who presents to the [facility] ED on 09/22/2024 with history of being at home when she was checked on by health aide who noted that she had not been out of bed since at least 8 AM with patient reporting that she been up very late and was very fatigued sleeping throughout the day with no oral intake prompting eventual transition to the ED given concerns for evaluation. #1. Adult FTT, Debility, multifactorial, secondary to Acute Complicated Urinary Tract Infection with history of significant frequent falls and #2: Will admit to [facility] upon ED evaluation remarkable, pending UCx, will continue judicious hydration, monitor I/Os, continue IV Rocephin w/ transition as able pending sensitivities and speciation. PT/OT/case management consult for discharge planning #2. Mild rhabdomyolysis: Admission with total creatinine kinase only mildly elevated 316, given patient had been in bed laying for more than 12 hours with minimal movement this is not significantly concerning level, will continue to hydrate judiciously and repeat level in the a.m. to be cautious. Offloading with encourage positional changes. #3. Anxiety and depression/mood disorder: Will continue patient home escitalopram, clonazepam with hold parameters as needed for sedation in addition to low-dose Seroquel nightly with hold parameters for sedation also as needed. #4. Dementia unclear type with unclear behavior disturbance history: Complicates presentation, will continue patient home memantine regimen, maintain on fall and aspiration precautions, PT/OT/case management consult for discharge planning. #5. Hypothyroidism: Status post previous thyroidectomy, will continue patient home levothyroxine regimen, also noted to be on liothyronine, clarifying to be certain. #6. Hypertension: Continue home regimen including amlodipine, PRN hydralazine. #7. Former tobacco use: Encourage continued tobacco cessation. #8. Chart reported history of previous alcohol abuse: Per discussion with patient and aid she denies any current ongoing alcohol use, encourage continued sobriety. #9. Rheumatoid arthritis: Noted history, will continue patient home nabumetone home regimen, encourage continued outpatient follow-up with rheumatology as previously arranged. #10. GERD: Will continue patient home famotidine regimen. #11. DVT prophylaxis: Lovenox. #12. CODE STATUS: Per discussion with patient aide her daughter is her healthcare power of pouch making machine operator and patient is a full code. Charges/Coding Visit Charges Inpatient E&M: 25039 Init Hosp L3
[2024-09-22 23:00] VITALS: BP 134/65; PULSE 70; RESP 16; TEMP 36.7; O2SAT 95
--- OUTSIDE RECORDS SUMMARY | 2024-09-22 23:10 | XMS RPT_ITS | CCD ---
Author Organization [facility] Care Team Providers Care Alterations Workroom Clerk Name Role Phone Unavailable Primary Care Provider UnavailErica Gee DO Primary Care Provider Dr. Erica Richardson Primary Care Provider [phone] Dr. Erica Richardson Referring Provider [phone] Don Gallegos Attending Provider Dr. Don Gallegos Attending Provider Alcides MANAGER UTILIZATION, MANAGER UTILIZATION-C Aiden Attending Provider Unav Dr. Erica Batista Primary Care Provider Erica Richardson DO Primary Care Provider [phone] Erica Richardson DO Primary Care Provider ERICA RICHARDSON Primary Care Unavailable DEBRA, ERICA Shannon Primary Care Unavailable BOAZ GRIMALDO Referring Unavailable DEBRA, ERICA Shannon Referring Unavailable ALL TSANG Attending Unavailable DEBRA, ERICA Shannon Primary Care Unavailable DEBRA, ERICA Shannon Primary Care Unavailable SHERICE ROSENBERG Attending Unavailable DEBRA, ERICA Shannon Primary Care Unavailable SAUNDRA HORNER Consulting Unavailab ROJAS Kimball Attending DENYS Johnston Admitting Unavailable Dr. Erica Richardson Primary Care Provider Alcides MANAGER UTILIZATION, MANAGER UTILIZATION-C Aiden Attending Provider Unav Erica Batista DO Primary Care Provider Dr. Froy Simmons Attending Provider Dr. Erica Richardson Primary Care Provider [phone] Dr. Froy Simmons Attending Provider Liborioys, Dr. Maldonado Referring Provider Debra, Dr. Maldonado Primary Care Provider Dr. Katie Randle Emergency Provider Darío, Dr. Portillo Admit Provider Darío, Dr. Portillo Attending Provider Darío, Dr. Portillo Other Provider Debra, Dr. Maldonado Primary Care Provider Dr. Jorge Cardona Emergency Provider Dr. Aggie Bolton Attending Provider Dr. Aggie Bolton Admit Provider Dr. Aggie Bolton Other Provider Dr. Froy Velázquez Attending Provider Dr. Froy Velázquez Other Provider Dr. Vernon Osman Other Provider Unavailable Erica Richardson DO Primary Care Provider Debra, Dr. Maldonado Primary Care Provider Dr. Jorge Cardona Emergency Provider Dr. Aggie Bolton Attending Provider Dr. Aggie Bolton Admit Provider Dr. Aggie Bolton Other Provider Dr. Froy Velázquez Attending Provider Dr. Froy Velázquez Other Provider Dr. Vernon Osman Other Provider Unavailable PROVIDER, UNKNOWN Admitting Unavailable PROVIDER, UNKNOWN Attending Unavailable Debra DO, Erica A Primary Care Provider MALYS, ERICA A Primary Care Unavailable DENYS BOLDEN Referring Unavailable MALYS, ERICA A Primary Care Unavailable MALYS, ERICA A Primary Care Unavailable MALYS, ERICA A Primary Care Unavailable MALYS, ERICA A Primary Care Unavailable MALYS, ERICA A Primary Care Unavailable Malys DO, Dr. Maldonado Primary Care Provider Debra DO, Dr. Maldonado Attending Provider Debra DO, Dr. Maldonado Referring Provider Anupama DO, Dr. Mcduffie Emergency Provider Debra DO, Dr. Maldonado Primary Care Provider Debra DO, Dr. Maldonado Attending Provider [phone] Debra DO, Dr. Maldonado Referring Provider Anupama DO, Dr. Mcduffie Attending Provider Leia Martinez Other Provider Unavailable Malys, Erica Primary Care Unavailable Malys, Erica Attending Unavailable Malys, Erica Primary Care Unavailable Malys, Erica Attending Unavailable Malys, Erica Referring Unavailable Malys, Erica Primary Care Unavailable Malys, Erica Attending Unavailable Leia Martinez Consulting Unavailable Malys, Erica Referring Unavailable Malys, Erica Referring Unavailable Malys, Erica Primary Care Unavailable Malys, Erica Attending Unavailable Malys, Erica Referring Unavailable Malys, Erica Attending Unavailable Malys, Erica Primary Care Unavailable Malys, Erica Referring Unavailable Malys, Erica Attending Unavailable Malys, Erica Primary Care Unavailable Malys, Erica Attending Unavailable Malys, Erica Primary Care Unavailable Malys, Erica Attending Unavailable Malys, Erica Primary Care Unavailable Malys, Erica Referring Unavailable Schwiger, Froy Attending Unavailable Malys, Erica Primary Care Unavailable Cardona, Jorge Attending Unavailable Malys, Erica Primary Care Unavailable Malys, Erica Primary Care Unavailable Cheikh Ybarra Attending Unavailable Allergies Allergy Classification Reported Allergen(s) Allergy Type Date of Onset Reaction(s) Facility (1 source) Antihistamines, Diphenhydramine-Ty pe Propensity to adverse reactions to drug 04-16-20 20 Palpitations [facility], [place] (20 sources) bacitracin / neomycin / polymyxin b; Translations: [NEOMYCIN-BACITRAC IN-POLYMYXIN] Drug Allergy 08-15-19 07 [facility] Work Phone: (20 sources) diphenhydrAMINE; Translations: [DIPHENHYDRAMINE HCL] Drug Allergy 10-28-19 13 [facility] (20 sources) Propylamine derivative antihistamine; Translations: [ANTIHISTAMINES - ALKYLAMINE] Propensity to adverse reactions 10-07-19 08 Intolerance [facility] (20 sources) Bacitracin Drug Allergy 08-08-19 22 Unknown [facility] (20 sources) Neomycin Drug Allergy 08-08-19 22 Unknown [facility] (20 sources) Polymyxin B Drug Allergy 08-08-19 22 Unknown [facility] (20 sources) diphenhydrAMINE Drug Allergy 01-11-20 22 PT UNSURE OF REACTION [facility] (20 sources) Antihistamines - Alkylamine Allergy to substance 01-11-20 PT UNSURE OF REACTION [facility] (1 source) Bacitracin Drug Allergy 07-05-19 25 [facility] (1 source) diphenhydrAMINE Drug Allergy 03-02-20 24 [facility] (1 source) Neomycin Drug Allergy 03-02-20 [facility] (1 source) Antihistamines - Alkylamine Drug allergy (disorder) 03-02-20 24 [facility] (1 source) polymyxin B Drug allergy (disorder) 03-02-20 [facility] Medications Current Medications Medication Drug Class(es) Dates Sig (Normalized) Sig (Original) acetaminophen 500 mg oral capsule (20 sources) Start: 05-19-2023 take 1 capsule by mouth twice daily Acetaminophen 500 mg capsule Active 500 mg PO TWICE A DAY May 19, 2023 1:00am Start: 10-17-2021 take 3 tablets by mo uth every six hours as needed acetaminophen (TYLENOL) 325 mg tablet Take 3 tablets by mouth every 6 hours as needed for pain. 10/17/2021 Active Start: 04-16-2020 acetaminophen (TYLENOL) tablet 650 mg Comment on above: Take 3 tablets by mo uth every 6 hours as needed for pain. [id number] 200 actuat albuterol 0.09 mg/actuat metered dose inhaler (7 sources) beta2-Adrenergic Agonist Start: 11-23-2022 Albuterol Sulfate (Proventil Hfa) 90 mcg/actuation HFA aerosol inhaler Active 2 NMA INHALATION EVERY 6 HOURS as needed for shortness of breath or wheezing 8.5 November 23, 2022 12:00am Start: 11-23-2022 take 1 puff(s) by in halation every six hours Albuterol Sulfate (Proventil Hfa) 90 mcg/actuation HFA aerosol inhaler Active 2 PUFF INHALATION EVERY 6 HOURS 8.5 November 23, 2022 12:00am amLODIPine 5 mg oral tablet (8 sources) Dihydropyridine Calcium Channel Carli Start: 11-22-2022 take 1 tablet by mouth once daily Amlodipine 5 mg tablet Active 5 mg PO DAILY November 22, 2022 12:00am calcitriol 0.0005 mg oral capsule (20 sources) Vitamin D3 Analog Start: 11-22-2022 take 0.5 ug by mouth twice daily Calcitriol Active 0.5 MCG PO TWICE A DAY November 22, 2022 12:00am please discontinue any rx for calcitriol by an other doctors Start: 08-01-2020 End: 08-01-2020 Calcitriol 0.5 mcg capsule Discontinued NMA PO August 01, 2020 12:00am August 01, 2020 4:10pm Start: 08-01-2020 End: 08-01-2020 Calcitriol Discontinued EACH PO August 01, 2020 12:00am August 01, 2020 4:10pm Start: 02-08-2016 End: 11-22-2022 take 1 capsule by mouth once daily Calcitriol 0.5 mcg capsule Discontinued 0.5 ug PO daily April 09, 2018 10:12am April 09, 2018 1:07pm E21.5 Comment on above: Take 1 capsule by [facility] once daily. Calcium Carb And Citrate-Vitd3 (Citracal-D3 Slow Release) 600 mg-12.5 mcg (500 unit) tablet extended release (20 sources) Start: 08-07-2021 take 1 tablet by mouth once daily Calcium Carb And Citrate-Vitd3 (Citracal-D3 Slow Release) 600 mg-12.5 mcg (500 unit) tablet extended release Active 1 TABLET PO DAILY August 07, 2021 11:06am Start: 08-07-2021 End: 11-22-2022 take 1 tablet by mouth once daily Calcium Carb And Citrate-Vitd3 (Citracal-D3 Slow Release) 600 mg-12.5 mcg (500 unit) tablet extended release Discontinued 1 TABLET PO DAILY August 06, 2021 11:00pm November 22, 2022 2:58pm Start: 08-07-2021 End: 11-22-2022 take 1 tablet by mouth once daily Calcium Carb And Citrate-Vitd3 (Citracal-D3 Slow Release) 600 mg-12.5 mcg (500 unit) tablet extended release Discontinued 1 TABLET PO DAILY August 07, 2021 12:00am November 22, 2022 3:58pm Start: 08-07-2021 take 1 tablet by aileen th once daily Calcium Carb And Citrate-Vitd3 (Citracal-D3 Slow Release) 600 mg-12.5 mcg (500 unit) tablet extended release Active 1 TABLET PO DAILY August 06, 2021 11:00pm Start: 08-07-2021 take 1 tablet by aileen th once daily Calcium Carb And Citrate-Vitd3 (Citracal-D3 Slow Release) 600 mg-12.5 mcg (500 unit) tablet extended release Active 1 TABLET PO DAILY August 07, 2021 12:00am cholecalciferol 0.025 mg oral capsule (20 sources) Vitamin D Start: 11-22-2022 take 1 capsule by mouth once daily Cholecalciferol (Vitamin D3) 25 mcg (1,000 unit) capsule Active 25 ug PO DAILY November 22, 2022 12:00am Start: 05-01-2017 End: 09-09-2019 take 1 capsule by mouth once daily Cholecalciferol (Vitamin D3) 1,000 unit capsule Discontinued 1000 U PO daily May 01, 2017 1:00am September 09, 2019 8:43pm Start: 02-02-2014 take 1 tablet by aileen th once daily Cholecalciferol, Vitamin D3, 1,000 unit tab Take 1 tablet by mouth once daily. 0 02/02/2014 Active Comment on above: Take 1 tablet by aileen th once daily. clonazePAM 1 mg oral tablet (20 sources) Benzodiazepine Start: take 1 tablet by mouth twice daily Clonazepam 1 mg tablet Active 1 mg PO TWICE A DAY March 03, 2022 1:00am Start: 08-01-2020 End: 03-03-2022 take 1 tablet by mouth once daily as needed for anxiety Clonazepam 1 mg tablet Discontinued 1 mg PO DAILY as needed for Anxiety August 01, 2020 12:00am March 03, 2022 12:47pm Start: 02-09-2009 End: 10-11-2021 take 1 tablet by mouth four times daily as needed clonazepam(KLONOPIN 1 MG TAB) Take one tablet by mouth four times daily as needed. 0 02/09/2009 10/11/2021 Discontinued (Dosage adjustment) take 1 tablet by aileen five times daily as needed clonazePAM (KLONOPIN) 1 mg tablet Take 1 mg by mouth. Take one tablet by mouth five times a day as needed Active Comment on above: Take one tablet by m outh four times daily as needed. Take 1 mg by mouth. Take one tablet by mouth five times a day as needed dexamethasone phosphate 1 mg/ml ophthalmic solution (20 sources) Corticosteroid Start: 03-09-2021 Dexamethasone Sodium Phosphate 0.1 % drops Active 1 NMA OPHTHALMIC DAILY March 09, 2021 1:00am RIGHT EYE Start: 03-09-2021 Dexamethasone Sodium Phosphate Active 1 DRP OPHTHALMIC TWICE A DAY March 09, 2021 1:00am R eye only docusate sodium 100 mg oral capsule (20 sources) Start: 04-16-2020 docusate sodiu m (COLACE) capsule 100 mg Start: 02-13-2019 End: 09-09-2019 take 1 capsule by mouth once daily Docusate Sodium 100 MG capsule Discontinued 100 mg PO DAILY February 13, 2019 12:00am September 09, 2019 8:43pm Start: 05-01-2017 End: 09-09-2019 take 3-4 tablets by mouth twice daily Docusate Sodium (Colace) 100 mg capsule Discontinued 0 PO TWICE A DAY May 01, 2017 1:00am September 09, 2019 8:43pm 3-4 tabs PO BID take 3 capsules by m outh twice daily as needed docusate sodium (COLACE) 100 mg ORAL Cap Indications: Hypocalcemia Take three capsules by mouth twice daily as needed. Active Comment on above: Take three capsules by mouth twice daily as needed. docusate sodium 50 mg / sennosides, halfway 8.6 mg oral tablet (1 source) Start: 0 sennosides-docusate sodium (SENOKOT-S) 8.6-50 MG tablet 2 tablet escitalopram 10 mg oral tablet (8 sources) Serotonin Reuptake Inhibitor Start: 3 take 1 tablet by mouth once daily Escitalopram Oxalate (Lexapro) 10 mg tablet Active 10 mg PO DAILY November 22, 2022 12:00am famotidine 20 mg oral tablet (20 sources) Histamine-2 Receptor Antagonist Start: 4 take 1 tablet by mouth at bedtime Famotidine (Pepcid) 20 mg tablet Active 20 mg PO AT BEDTIME May 19, 2023 1:00am Start: 01-01-2021 End: 11-22-2022 take 1 tablet by mouth twice daily Famotidine (Pepcid) 20 mg tablet Discontinued 20 mg PO TWICE A DAY March 08, 2021 7:35pm November 22, 2022 3:59pm Start: 04-16-2020 famotidine (PE PCID) tablet 20 mg Start: 08-27-2018 End: 05-30-2021 take 1 tablet by mouth once daily at bedtime famotidine (PEPCID) 20 mg tablet Indications: Malignant melanoma of skin (HCC) , ER+ (estrogen receptor positive status) , Neuropathy due to chemotherapeutic drug (HCC) , Malignant neoplasm of central portion of left female breast (HCC) TAKE 1 TABLET BY MOUTH DAILY AT BEDTIME. 90 tablet 3 08/27/2018 05/30/2021 Discontinued famotidine (PEPC ID AC ORAL) Take by mouth once daily. 0 Suspended famotidine (PEPC ID AC ORAL) Take by mouth once daily. 0 Active Comment on above: Take by mouth once d aily. folic acid 1 mg oral tablet (1 source) Start: 04-16-2020 folic acid (FOLVITE) tablet 1 mg glycerin(COLACE (GLYCERIN) 1.5 G RECT SUPP) (20 sources) Start: 10-12-2009 glycerin(COLACE (GLYCERIN) 1.5 G RECT SUPP) Insert one suppository into rectum once daily 0 10/12/2009 Suspended Start: 10-12-2009 glycerin(COLAC E (GLYCERIN) 1.5 G RECT SUPP) Insert one suppository into rectum once daily 0 10/12/2009 Active Comment on above: Insert one supposito ry into rectum once daily 1 ml hydrALAZINE hydrochloride 20 mg/ml injection (1 source) Arteriolar Vasodilator Start: 020 hydrALAZINE (APRESOLINE) injection 10 mg 4 ml labetalol hydrochloride 5 mg/ml cartridge (1 source) beta-Adrenergic Carli Start: labetalol (NORMODYNE;TRANDATE ) injection 10 mg levoFLOXacin 750 mg oral tablet (5 sources) Quinolone Antimicrobial Start: take 1 tablet by mouth once daily Levofloxacin 750 mg Tablet Active 750 mg PO DAILY@0600 6 May 21, 2023 1:00am lidocaine 0.04 mg/mg medicated patch (1 source) Antiarrhythmic, Amide Local Anesthetic Start: End: apply 1 dose transdermal route once daily lidocaine (SALONPAS) 4 % patch Apply 1 Patch as directed once daily for 5 days. 5 Patch 0 10/17/2021 10/22/2021 Active Comment on above: Apply 1 Patch as dir ected once daily for 5 days. liothyronine sodium 0.005 mg oral tablet (11 sources) l-Triiodothyronine Start: take 1 tablet by mouth once daily Liothyronine 5 mcg tablet Active 5 ug PO DAILY July 04, 2024 12:00am Start: 11-22-2022 End: 05-19-2023 take 1 tablet by mouth once daily Liothyronine 5 mcg tablet Discontinued 5 ug PO DAILY November 22, 2022 12:00am May 19, 2023 1:30am LORazepam (1 source) Benzodiazepine Start: 04-16-2020 LORazepam (ATI VAN) tablet 1 mg Magnesium (20 sources) Magnesium 250 mg tab Take 500 mg by mouth as directed. Active Magnesium 250 mg tab Take 500 mg by mouth as directed. 0 Active Magnesium 250 mg tab Take 500 mg by mouth as directed. 0 Suspended Magnesium 250 mg tab Take 500 mg by mouth. 0 Active Comment on above: Take 500 mg by mouth . Take 500 mg by mouth as directed. magnesium oxide 500 mg oral tablet (8 sources) Start: 11-22-2022 take 1 tablet by mouth once daily Magnesium Oxide 500 mg tablet Active 500 mg PO DAILY November 22, 2022 12:00am Start: 11-22-2022 take 1000 mg by mouth once renay ly Magnesium Oxide Active 1000 MG PO DAILY November 22, 2022 12:00am meclizine hydrochloride 25 mg oral tablet (20 sources) Antiemetic Start: 08-03-2023 take 25 mg by mouth once daily Meclizine Active 25 MG PO DAILY November 22, 2022 12:00am Start: 10-02-2021 take 1 tablet by aileen three times daily Meclizine 25 MG tablet Active 25 mg PO THREE TIMES A DAY November 22, 2022 12:00am Start: 05-21-2021 End: 11-22-2022 take 1 tablet by mouth every eight hours as needed for dizziness Meclizine 25 MG tablet Discontinued 25 mg PO EVERY 8 HOURS NEEDED as needed for Dizziness May 21, 2021 6:18pm November 22, 2022 4:09pm Comment on above: Take 25 mg by mouth three times daily as needed. meloxicam 7.5 mg oral tablet (1 source) Nonsteroidal Anti-inflammatory Drug Start: 2 End: 2 take 1 tablet by mouth once daily at mealtime meloxicam (MOBIC) 7.5 mg tablet Indications: Otalgia, right Take 1 tablet by mouth once daily for 15 days. Take with food. 15 tablet 0 07/12/2021 07/27/2021 Active Comment on above: Take 1 tablet by aileen once daily for 15 days. Take with food. memantine hydrochloride 5 mg oral tablet (20 sources) L-tanegu-H-aspartate Receptor Antagonist Start: 3 take 1 tablet by mouth twice daily Memantine 5 mg tablet Active 5 mg PO TWICE A DAY November 22, 2022 12:00am Start: 10-17-2021 take 1 tablet by aileen once daily at bedtime memantine (NAMENDA) 5 mg tablet Take 1 tablet by mouth daily at bedtime. 10/17/2021 Active Comment on above: Take 1 tablet by aileen daily at bedtime. 1 ml morphine sulfate 4 mg/ml cartridge (1 source) Opioid Agonist Start: 0 morphine (PF) injection 1 mg nabumetone 750 mg oral tablet (10 sources) Nonsteroidal Anti-inflammatory Drug Start: 3 take 1 tablet by mouth twice daily Nabumetone 750 mg tablet Active 750 mg PO TWICE A DAY November 22, 2022 12:00am Start: 10-05-2021 take 1 tablet by aileen twice daily nabumetone (RELAFEN) 750 mg tablet Take 750 mg by mouth twice daily. 0 10/05/2021 Suspended Comment on above: Take 750 mg by mouth twice daily. PHENobarbital 64.8 mg oral tablet (2 sources) Start: 04-16-2020 PHENobarbital (LUMINAL) tablet 64.8 mg Start: 04-16-2020 End: 04-16-2020 PHENobarbital (LUMINAL) inje ction 32.5 mg polyethylene glycol 3350 11460 mg powder for oral solution (20 sources) Osmotic Laxative Start: 04-16-2020 Polyethylene Glycol 3350 (Clearlax) 17 gram/dose powder Active 17 g PO DAILY May 19, 2023 1:00am Comment on above: Take 17 g by mouth o nce daily. polyvinyl alcohol 0.014 ml/ml / povidone 6 mg/ml ophthalmic solution (18 sources) Start: 10-17-2021 polyvinyl alcohol-povidone (REFRESH) 1.4-0.6 % ophthalmic solution Use 1 Drop in both eyes as needed. 10/17/2021 Active Start: 10-17-2021 polyvinyl alco hol-povidone (REFRESH) 1.4-0.6 % ophthalmic solution Use 1 Drop in both eyes as needed. 0 10/17/2021 Active Comment on above: Use 1 Drop in both e yes as needed. potassium chloride 20 meq extended release oral tablet (20 sources) Start: 07-04-2024 take 1 tablet by mouth twice daily Potassium Chloride 20 mEq tablet extended release Active 20 meq PO TWICE A DAY July 04, 2024 12:00am Start: 08-01-2020 End: 07-04-2024 take 2 tablets by mouth once daily Potassium Chloride 20 mEq tablet,ER particles/crystals Discontinued 40 meq PO DAILY August 01, 2020 12:00am July 04, 2024 1:25pm Start: 08-01-2020 take 40 mEq by mouth once daily Potassium Chloride Active 40 MEQ PO DAILY August 01, 2020 12:00am Start: 08-01-2020 take 20 mEq by mouth twice daily Potassium Chloride Active 20 MEQ PO TWICE A DAY August 01, 2020 12:00am Start: 04-17-2020 End: 04-17-2020 potassium chloride (KLOR-CON M) extended release tablet 40 mEq Start: 05-19-2019 End: 09-09-2019 take 1 tablet by mouth once daily Potassium Chloride 20 MEQ tablet Discontinued 20 meq PO DAILY May 19, 2019 1:00am September 09, 2019 8:44pm take 40 mEq by mouth once daily at mealtime potassium chloride (KLOR-CON) 20 mEq packet Take 40 mEq by mouth once daily. With food Active take 20 mEq by mouth twice daily potassium chloride (KLOR-CON) 20 mEq packet Take 20 mEq by mouth twice daily. 0 Active Comment on above: Take 20 mEq by mouth twice daily. Take 40 mEq by mouth once daily. With food pregabalin 75 mg oral capsule (20 sources) Start: 03-03-2022 take 1 capsule by mouth three times daily Pregabalin 75 mg capsule Active 75 mg PO THREE TIMES A DAY March 03, 2022 1:00am Start: 03-08-2021 End: 11-22-2022 take 1 capsule by mouth twice daily Pregabalin 50 mg capsule Discontinued 50 mg PO TWICE A DAY March 08, 2021 1:00am November 22, 2022 4:02pm Start: 05-01-2017 End: 09-09-2019 take 1 capsule by mouth three times daily Pregabalin (Lyrica) 100 mg capsule Discontinued 100 mg PO THREE TIMES A DAY May 01, 2017 1:00am September 09, 2019 8:43pm take 1 capsule by [facility] twice daily pregabalin (LYRICA) 75 mg capsule Take 75 mg by mouth twice daily. Active Comment on above: Take 50 mg by mouth twice daily. Take 75 mg by mouth twice daily. Promethazine (1 source) Phenothiazine Start: 04-16-20 promethazine (PHENERGAN) tablet 12.5 mg QUEtiapine 25 mg oral tablet (11 sources) Atypical Antipsychotic Start: 07-05-19 take 1 tablet by mouth at bedtime Quetiapine 25 mg tablet Active 25 mg PO AT BEDTIME July 04, 2024 12:00am Start: 11-22-2022 Quetiapine 100 mg tablet Active 25 mg PO DAILY November 22, 2022 12:00am Start: 11-22-2022 take 25 mg by mouth once daily Quetiapine Active 25 MG PO DAILY November 22, 2022 12:00am Start: 11-22-2022 take 100 mg by mouth once gabino y Quetiapine Active 100 MG PO DAILY November 22, 2022 12:00am sodium chloride 1000 mg oral tablet (7 sources) Start: 10-17-2021 End: 10-20-2021 take 1 tablet by mouth three times daily sodium chloride 1 gram tab Take 1 tablet by mouth three times daily for 3 days. 9 tablet 0 10/17/2021 10/20/2021 Active Start: 04-16-2020 End: 04-16-2020 0.9 % sodium chloride bolus Start: 04-16-2020 sodium chlorid e flush 0.9 % injection 10 mL Start: 04-16-2020 End: 04-17-2020 0.9 % sodium chloride infusi on Start: 07-22-2018 End: 05-30-2021 0.9 % sodium chloride (0.9% NACL) Access implanted vascular access device (IVAD) as needed for flush, blood draw or treatment. Flush IVAD with 10-20 mL NS every 4 weeks and PRN when IVAD not in use. 2 Syringe 50 07/22/2018 05/30/2021 Discontinued Comment on above: Take 1 tablet by aileen th three times daily for 3 days. sulfamethoxazole 800 mg / trimethoprim 160 mg oral tablet (1 source) Dihydrofolate Reductase Inhibitor Antibacterial, Sulfonamide Antimicrobial Start: 10-18-19 End: 10-21-19 take 1 tablet by mouth twice daily sulfamethoxazole-tr imethoprim (BACTRIM DS) 800-160 mg per tablet Take 1 tablet by mouth twice daily for 3 days. 6 tablet 0 10/17/2021 10/20/2021 Active Comment on above: Take 1 tablet by aileen th twice daily for 3 days. thiamine hydrochloride 100 mg/ml injectable solution (1 source) Start: 04-16-20 End: 04-19-20 20 thiamine (B-1) injection 100 mg valACYclovir 1000 mg oral tablet (20 sources) Herpesvirus Nucleoside Analog DNA Polymerase Inhibitor, Herpes Simplex Virus Nucleoside Analog DNA Polymerase Inhibitor, Herpes Zoster Virus Nucleoside Analog DNA Polymerase Inhibitor Start: 08-02-19 21 Valacyclovir 1 gram tablet Active 1000 mg PO DAILY August 01, 2020 12:00am Start: 08-01-2020 take 1000 mg by mout h once daily Valacyclovir Active 1000 MG PO DAILY August 01, 2020 12:00am Comment on above: Take 1,000 mg by aileen th once daily. vitamin b6 100 mg oral tablet (20 sources) Start: 05-19-2023 take 1 tablet by mouth once daily Pyridoxine (Vitamin B6) 100 mg tablet Active 100 mg PO DAILY May 19, 2023 1:00am Start: 05-01-2017 End: 09-09-2019 take 1 tablet by mouth once daily Pyridoxine (Vitamin B6) 100 mg tablet Discontinued 100 mg PO daily May 01, 2017 1:00am September 09, 2019 8:44pm Comment on above: Take 100 mg by mouth once daily. Completed/Discontinued Medications Medication Drug Class(es) Dates Sig (Normalized) Sig (Original) acetaminophen 325 mg / HYDROcodone bitartrate 10 mg oral tablet (20 sources) Opioid Agonist Start: 10-06-2021 take 1 tablet by mouth every four hours as needed HYDROcodone-Aceta minophen (NORCO) 10-325 mg per tablet Take 1 tablet by mouth every 4 hours as needed (severe pain). 0 10/06/2021 Suspended Start: 06-11-2021 End: 07-04-2024 Hydrocodone-Acetaminophen 10 -325 mg tablet Discontinued 1 {tbl} PO EVERY 6 HOURS June 11, 2021 1:00am July 04, 2024 1:25pm Start: 06-11-2021 take 1 tablet by aileen th every six hours Hydrocodone-Acetaminophen Active 1 TABLE T PO EVERY 6 HOURS June 11, 2021 1:00am Start: 06-11-2021 take 1 tablet by aileen th every four hours as needed Hydrocodone-Acetaminophen Active 1 TABLE T PO EVERY 4 HOURS NEEDED June 11, 2021 1:00am Start: 03-08-2021 End: 03-09-2021 Hydrocodone-Acetaminophen 10 -325 mg tablet Discontinued 1 {tbl} PO 4 TIMES DAILY March 08, 2021 1:00am March 09, 2021 5:10pm Start: 03-08-2021 End: 03-09-2021 take 1 tablet by mouth four times daily Hydrocodone-Acetaminophen Discontinued 1 TABLET PO 4 TIMES DAILY March 08, 2021 1:00am March 09, 2021 5:10pm Start: 07-10-2018 End: 10-11-2021 take 1 tablet by mouth four times daily as needed HYDROcodone-acetaminophen (NORCO) 5-325 mg per tablet ONE TABLET BY MOUTH FOUR TIMES DAILY NEEDED 0 07/10/2018 10/11/2021 Discontinued (Other) Start: 05-01-2017 End: 09-09-2019 Hydrocodone-Acetaminophen 5- 325 mg tablet Discontinued 1 {tbl} PO EVERY 6 HOURS May 01, 2017 1:00am September 09, 2019 8:43pm Start: 05-01-2017 End: 09-09-2019 take 1 tablet by mouth every six hours Hydrocodone-Acetaminophen Discontinued 1 TABLET PO EVERY 6 HOURS May 01, 2017 1:00am September 09, 2019 8:43pm Comment on above: ONE TABLET BY MOUTH FOUR TIMES DAILY NEEDED Take 1 tablet by aileen th every 4 hours as needed (severe pain). acetaminophen 325 mg / oxyCODONE hydrochloride 5 mg oral tablet (20 sources) Opioid Agonist Start: 02-13-2019 End: 02-19-2019 Oxycodone-Acetaminophen 1 TABLET tablet Discontinued 1 {tbl} PO EVERY 6 HOURS NEEDED as needed for Pain Or Fever 12 3 February 13, 2019 February 15, 2019 12:00am February 19, 2019 12:10am Start: 02-13-2019 End: 02-19-2019 take 1 tablet by mouth every six hours as needed Oxycodone-Acetaminophen Discontinued 1 TABLET PO EVERY 6 HOURS NEEDED 12 February 13, 2019 February 19, 2019 12:10am Start: 05-29-2018 End: 06-01-2018 Oxycodone-Acetaminophen 1 TA BLET tablet Discontinued 1 - 2 {tbl} PO EVERY 6 HOURS NEEDED as needed for Pain 15 3 May 29, 2018 1:00am May 31, 2018 1:00am June 01, 2018 1:09am Start: 05-29-2018 End: 06-01-2018 take 1 tablet by mouth every six hours as needed Oxycodone-Acetaminophen Discontinued 1 - 2 TABLET PO EVERY 6 HOURS NEEDED 15 3 May 29, 2018 1:00am June 01, 2018 1:09am aspirin 81 mg delayed release oral tablet (20 sources) Platelet Aggregation Inhibitor, Nonsteroidal Anti-inflammatory Drug Start: 05-01-2017 End: 09-09-2019 take 1 tablet by mouth once daily Aspirin (Adult Aspirin Regimen) 81 mg tablet,delayed release (DR/EC) Discontinued 81 mg PO daily May 01, 2017 1:00am September 09, 2019 8:43pm End: 10-17-2021 take 1 tablet by mouth once daily Aspirin 81 mg tab Take 81 mg by mouth once daily. 10/17/2021 Discontinued Comment on above: Take 81 mg by mouth once daily. benzonatate 100 mg oral capsule (1 source) Non-narcotic Antitussive Start: 11-23-19 End: 11-23-19 take 1 capsule by mouth every eight hours as needed benzonatate (TESSALON PERLES) 100 mg capsule Take 1 capsule by mouth three times daily as needed for cough. 12 capsule 0 11/22/2022 11/22/2022 Discontinued (Course of therapy completed) Comment on above: Take 1 capsule by mo [facility] three times daily as needed for cough. busPIRone hydrochloride 5 mg oral tablet (20 sources) Start: 08-02-19 End: 11-23-19 Buspirone 5 mg tablet Discontinued 5 NMA PO DAILY August 01, 2020 12:00am November 22, 2022 3:57pm Start: 08-01-2020 End: 11-22-2022 take 5 tablets by mouth once daily Buspirone Discontinued 5 TAB PO DAILY August 01, 2020 12:00am November 22, 2022 3:57pm take 7.5 mg by mouth once daily at bedtime busPIRone (BUSPAR) 5 mg tablet Take 7.5 mg by mouth daily at bedtime. 0 Suspended Comment on above: Take 5 mg by mouth o nce daily. Take 7.5 mg by mouth daily at bedtime. Calcium Carb, Citrate-Vit D3 (Citracal-D3 Slow Release) 600 mg-12.5 mcg (500 unit) tablet extended release (3 sources) Start: 08-07-2021 End: 11-22-2022 Calcium Carb, Citrate-Vit D3 (Citracal-D3 Slow Release) 600 mg-12.5 mcg (500 unit) tablet extended release Discontinued 1 {tbl} PO DAILY August 07, 2021 12:00am November 22, 2022 3:58pm CALCIUM CITRATE/VITAMIN D3 (CITRACAL + D ORAL) (7 sources) End: 10-17-2021 take 2 tablets by mouth once daily CALCIUM CITRATE/VITAMIN D3 (CITRACAL + D ORAL) Take 2 tablets by mouth once daily. 10/17/2021 Discontinued take 2 tablets by mouth once renay ly CALCIUM CITRATE/VITAMIN D3 (CITRACAL + D ORAL) Take 2 tablets by mouth once daily. 0 Suspended take 2 tablets by mouth once renay ly CALCIUM CITRATE/VITAMIN D3 (CITRACAL + D ORAL) Take 2 tablets by mouth once daily. 0 Active Comment on above: Take 2 tablets by mo uth once daily. calcium gluconate 1 g in dextrose 5 % 100 mL IVPB (1 source) Start: 04-17-20 End: 04-17-20 calcium gluconate 1 g in dextrose 5 % 100 mL IVPB calcium polycarbophil 625 mg oral tablet (20 sources) Start: 05-01-19 18 End: 09-09-19 20 Calcium Polycarbophil (Fiber (Calcium Polycarbophil)) 625 mg tablet Discontinued 0 PO .COMPLEX May 01, 2017 1:00am September 09, 2019 8:43pm 4-5 tabs PO 2-3 x qd ciprofloxacin 500 mg oral tablet (20 sources) Quinolone Antimicrobial Start: 10-21-19 16 End: 05-01-19 18 take 1 tablet by mouth twice daily Ciprofloxacin Hcl 500 MG tablet Discontinued 500 mg PO TWICE A DAY October 21, 2015 12:00am May 01, 2017 10:19am COMPOUNDED PRESCRIPTION (15 sources) Start: 11-14-19 13 End: 10-11-19 22 COMPOUNDED PRESCRIPTION Indications: Breast cancer (HCC) L8030 Breast Prosehesis 1 Units 0 11/13/2012 10/10/2021 Discontinued (Other) Start: 11-13-2012 End: 10-10-2021 COMPOUNDED PRESCRIPTION Kelin cations: Breast cancer (HCC) L8020 Leisure Breast Form 1 Units 0 11/13/2012 10/10/2021 Discontinued (Other) Start: 11-13-2012 End: 10-10-2021 COMPOUNDED PRESCRIPTION Kelin cations: Breast cancer (HCC) L8000 Surgical/Mastectomy Bras 4 Units 0 11/13/2012 10/10/2021 Discontinued (Other) Start: 11-13-2012 COMPOUNDED PRE SCRIPTION Indications: Breast cancer (HCC) L8030 Breast Prosehesis 1 Units 0 11/13/2012 Active Start: 11-13-2012 COMPOUNDED PRE SCRIPTION Indications: Breast cancer (HCC) L8020 Leisure Breast Form 1 Units 0 11/13/2012 Active Start: 11-13-2012 COMPOUNDED PRE SCRIPTION Indications: Breast cancer (HCC) L8000 Surgical/Mastectomy Bras 4 Units 0 11/13/2012 Active Comment on above: L8030 Breast Prosehe sis L8020 Leisure Breast Form L8000 Surgical/Maste ctomy Bras cyanocobalamin/folic ac/vit B6 (FOLBEE ORAL) (10 sources) cyanocobalamin/f olic ac/vit B6 (FOLBEE ORAL) Take by mouth twice daily. 0 Suspended cyanocobalamin/f olic ac/vit B6 (FOLBEE ORAL) Take by mouth twice daily. 0 Active Comment on above: Take by mouth twice daily. cyclobenzaprine hydrochloride 5 mg oral tablet (20 sources) Muscle Relaxant Start: 03-09-20 End: 11-23-19 take 1 tablet by mouth three times daily as needed for muscle spasms Cyclobenzaprine 5 mg Tablet Discontinued 5 mg PO 3 TIMES DAILY NEEDED as needed for Muscle Spasm March 09, 2021 1:00am November 22, 2022 3:59pm doxycycline hyclate 100 mg oral tablet (1 source) Tetracycline-cla ss Drug Start: 11-23-19 End: 11-23-19 take 1 tablet by mouth twice daily doxycycline (VIBRA-TABS) 100 mg tablet Take 1 tablet by mouth twice daily for 7 days. 14 tablet 0 11/22/2022 11/22/2022 Discontinued (Course of therapy completed) Comment on above: Take 1 tablet by aileen twice daily for 7 days. Fiber (11 sources) End: 11-04-19 take 4 capsules by mouth once daily as needed Fiber cap Take 4 capsules by mouth once daily as needed. 11/03/2021 Discontinued take 4 capsules by m outh once daily as needed Fiber cap Take 4 capsules by mouth once daily as needed. 0 Suspended take 4 capsules by m outh once daily as needed Fiber cap Take 4 capsules by mouth once daily as needed. 0 Active Comment on above: Take 4 capsules by m outh once daily as needed. folic acid 2.5 mg / vitamin b12 1 mg / vitamin b6 25 mg oral tablet (20 sources) Vitamin B12 Start: 08-01-2020 End: 11-22-2022 Folic Acid-Vit B6-Vit B12 2.5-25-1 mg tablet Discontinued 1 NMA PO DAILY August 01, 2020 12:00am November 22, 2022 3:59pm Start: 08-01-2020 End: 11-22-2022 Folic Acid-Vit B6-Vit B12 Di scontinued 1 EACH PO DAILY August 01, 2020 12:00am November 22, 2022 3:59pm heparin (1 source) Unfractionated Heparin, Anti-coagulant Start: 07-22-2018 End: 05-30-2021 heparin 100 unit/mL injection Access implanted vascular access device (IVAD) as needed for flush, blood draw or treatment. Before de-accessing port, flush with 10-20ml normal saline and follow with 5 mL heparin (100 units/mL) (if no heparin allergy). De-access port on treatment completion. 5 mL 50 07/22/2018 05/30/2021 Discontinued indapamide 1.25 mg oral tablet (20 sources) Thiazide-like Diuretic Start: 08-01-2020 End: 11-22-2022 take 1 tablet by mouth once daily Indapamide 1.25 mg tablet Discontinued 1.25 mg PO DAILY August 01, 2020 12:00am November 22, 2022 4:06pm Start: 05-01-2017 End: 09-09-2019 take 1 tablet by mouth once daily in the morning Indapamide 1.25 mg tablet Discontinued 1.25 mg PO EVERY MORNING May 01, 2017 1:00am September 09, 2019 8:43pm Comment on above: Take 1.25 mg by mout h once daily. Take 1.25 mg by mout h every morning. iv contrast (will be provided with radiology test) (4 sources) Start: 2 End: 2 inject 1 dose intravenously once iv contrast (will be provided with radiology test) Indications: SDH (subdural hematoma) , Cerebral hemorrhage (HCC) MRI Brain Inject, intravenously, once for 1 dose.No IV access, insert saline lock prior to beginning of sedation, infusion, injection of imaging exam.Discontinue saline lock post exam. If Pt. has a central line or IVAD, may access for administration according to line specific nursing protocol.Once exam is complete flush line and de-access according to line specific nursing protocol in the MR contrast administration guidelines link 1 Each 0 11/03/2021 01/09/2022 Discontinued (Course of therapy completed) Start: 11-03-2021 inject 1 dose intravenously on ce iv contrast (will be provided with radiology test) Indications: SDH (subdural hematoma) (HCC) , Cerebral hemorrhage (HCC) MRI Brain Inject, intravenously, once for 1 dose.No IV access, insert saline lock prior to beginning of sedation, infusion, injection of imaging exam.Discontinue saline lock post exam. If Pt. has a central line or IVAD, may access for administration according to line specific nursing protocol.Once exam is complete flush line and de-access according to line specific nursing protocol in the MR contrast administration guidelines link 1 Each 0 11/03/2021 Active Comment on above: MRI Brain Inject, in travenously, once for 1 dose.No IV access, insert saline lock prior to beginning of sedation, infusion, injection of imaging exam.Discontinue saline lock post exam. If Pt. has a central line or IVAD, may access for administration according to line specific nursing protocol.Once exam is complete flush line and de-access according to line specific nursing protocol in the MR contrast administration guidelines link letrozole 2.5 mg oral tablet (20 sources) Aromatase Inhibitor Start: End: take 1 tablet by mouth once daily Letrozole 2.5 mg tablet Discontinued 2.5 mg PO DAILY August 01, 2020 12:00am November 22, 2022 4:00pm levothyroxine sodium 0.125 mg oral tablet (20 sources) l-Thyroxine Start: End: Levothyroxine 137 mcg tablet Discontinued NMA PO August 01, 2020 12:00am August 01, 2020 4:20pm Start: 08-01-2020 End: 08-01-2020 Levothyroxine Discontinued E ACH PO August 01, 2020 12:00am August 01, 2020 4:20pm Start: 04-30-2016 End: 02-19-2023 take 1 tablet by mouth once daily Levothyroxine 125 mcg tablet Discontinued 125 ug PO DAILY October 12, 2022 10:39am November 22, 2022 4:09pm Please discontinue any levothyroxine orders from any other doctors Comment on above: Take 125 mcg by mout h once daily. lisinopril 10 mg oral tablet (20 sources) Angiotensin Converting Enzyme Inhibitor Start: End: take 1 tablet by mouth once daily Lisinopril 10 mg tablet Discontinued 10 mg PO DAILY March 08, 2021 1:00am November 22, 2022 4:01pm Comment on above: Take 10 mg by mouth once daily. magnesium sulfate 1 g in dextrose 5 % 100 mL IVPB (1 source) Start: End: magnesium sulfate 1 g in dextrose 5 % 100 mL IVPB methylcellulose 500 mg oral tablet (20 sources) Start: End: take 1 tablet by mouth once Methylcellulose (Laxative) (Citrucel) 500 mg tablet Discontinued 500 mg PO ONCE May 01, 2017 1:00am September 09, 2019 8:43pm nortriptyline 50 mg oral capsule (20 sources) Tricyclic Antidepressant Start: End: take 1 capsule by mouth at bedtime Nortriptyline 50 mg capsule Discontinued 50 mg PO AT BEDTIME August 01, 2020 12:00am November 22, 2022 4:01pm Start: 05-11-2015 End: 10-17-2021 take 2 capsules by mouth once daily at bedtime nortriptyline (PAMELOR) 50 mg capsule Take 100 mg by mouth daily at bedtime. 05/11/2015 10/17/2021 Discontinued Comment on above: Take 100 mg by mouth daily at bedtime. oxyCODONE hydrochloride 5 mg oral tablet (20 sources) Opioid Agonist Start: 1 End: 3 take 1 tablet by mouth every six hours as needed for pain Oxycodone 5 mg tablet Discontinued 5 mg PO EVERY 6 HOURS as needed for pain 12 3 March 03, 2022 March 05, 2022 1:00am March 06, 2022 1:04am Start: 04-16-2020 oxyCODONE (ANAIS ICODONE) immediate release tablet 5 mg Start: 09-09-2019 End: 09-16-2019 take 2 tablets by mouth every six hours as needed for pain Oxycodone 5 MG tablet Discontinued 10 mg PO EVERY 6 HOURS NEEDED as needed for Pain Score 6-10/10 28 7 September 09, 2019 September 15, 2019 12:00am September 16, 2019 12:02am Start: 09-09-2019 End: 09-16-2019 take 10 mg by mouth every six hours as needed Oxycodone Discontinued 10 MG PO EVERY 6 HOURS NEEDED 28 7 September 09, 2019 September 16, 2019 12:02am take 5-10 mg by mout h every four hours as needed oxyCODONE IR (ROXICODONE) 5 mg immediate release tablet Take 5-10 mg by mouth every 4 hours as needed for pain. Active Comment on above: Take 5-10 mg by mout h every 4 hours as needed for pain. phenazopyridine hydrochloride 200 mg oral tablet (20 sources) Start: 6 End: 8 take 1 tablet by mouth twice daily as needed for pain Phenazopyridine 200 MG tablet Discontinued 200 mg PO TWICE DAILY NEEDED as needed for Pain October 21, 2015 12:00am May 01, 2017 10:19am Start: 02-10-2015 End: 10-10-2021 take 1 tablet by mouth every eight hours as needed phenazopyridine (PYRIDIUM) 200 mg tablet Take 1 tablet by mouth three times daily as needed. 90 tablet 4 02/10/2015 10/10/2021 Discontinued (Other) Comment on above: Take 1 tablet by aileen th three times daily as needed. vit C/E/zinc ox/thuan/lut/zeax (ICAPS AREDS2 ORAL) (10 sources) vit C/E/zinc ox/thuan/lut/zeax (ICAPS AREDS2 ORAL) Take by mouth twice daily. 0 Suspended vit C/E/zinc ox/ thuan/lut/zeax (ICAPS AREDS2 ORAL) Take by mouth twice daily. 0 Active Comment on above: Take by mouth twice daily. VIT C/E/ZN/COPPR/LUTEIN/ZE AXAN (PRESERVISION AREDS 2 ORAL) (5 sources) End: 10-10-2021 VIT C/E/ZN/COPPR/LUTEIN/ZEAXAN (PRESERVISION AREDS 2 ORAL) Take 1 tablet by mouth once daily. 10/10/2021 Discontinued (Duplicate Entry) VIT C/E/ZN/COPPR /LUTEIN/ZEAXAN (PRESERVISION AREDS 2 ORAL) Take 1 tablet by mouth once daily. 0 Active Comment on above: Take 1 tablet by aileen th once daily. Vitamins A,C,S-Lsbc-Xctdqb (Preservision Areds) 14,320-226-200 rpfw-al-czeu capsule (20 sources) Start: 05-01-2017 End: 09-09-2019 take 1 capsule by mouth once daily Vitamins A,C,J-Khxi-Dbqwef (Preservision Areds) [id number] dzgd-ge-xefv capsule Discontinued 1 CAP PO DAILY May 01, 2017 10:26am September 09, 2019 8:44pm Start: 05-01-2017 End: 09-09-2019 Vitamins A,C,F-Itai-Vuzgmb (Preservision Areds) 14,320-226-200 jetr-kz-scem capsule Discontinued 1 NMA PO DAILY May 01, 2017 1:00am September 09, 2019 8:44pm Start: 05-01-2017 End: 09-09-2019 take 1 capsule by mouth once daily Vitamins A,C,V-Pygx-Advqed (Preservision Areds) 14,320-226-200 rnjo-fc-ncgv capsule Discontinued 1 CAP PO DAILY May 01, 2017 12:00am September 09, 2019 7:44pm Start: 05-01-2017 End: 09-09-2019 take 1 capsule by mouth once daily Vitamins A,C,K-Hiut-Huaepe (Preservision Areds) [id number] vojj-mc-avzd capsule Discontinued 1 CAP PO DAILY May 01, 2017 1:00am September 09, 2019 8:44pm zolpidem tartrate 5 mg oral tablet (2 sources) gamma-Aminobutyric Acid-ergic Agonist take 1 tablet by mouth every twenty-four hours as needed zolpidem (AMBIEN) 5 mg tablet Take 5 mg by mouth at bedtime as needed. 0 Suspended Comment on above: Take 5 mg by mouth a t bedtime as needed. Problems Active Problems Problem Classification Problem Date Documented Da te Episodic/Chronic Abdominal pain (20 sources) Right lower quadrant pain; Translations: [Right lower quadrant pain] 08-01-2007 Episodic Acute cerebrovascular disease (20 sources) Intracranial hemorrhage; Translations: [Nontraumatic intracranial hemorrhage, unspecified] Onset: 2 10-12-2021 Chronic Alcohol-related disorders (2 sources) Alcohol abuse; Translations: [Alcohol abuse] Onset: 0 04-17-2020 Chronic Anxiety disorders (20 sources) Anxiety state; Translations: [Generalized anxiety disorder] Onset: 6 06-12-2018 Chronic Cancer of breast (20 sources) Malignant neoplasm of female breast; Translations: [Malignant neoplasm of unspecified site of unspecified female breast] Onset: 3 Resolved: 3 01-20-2015 Chronic Cardiac dysrhythmias (3 sources) Juliana rhythm disorder; Translations: [Other specified cardiac arrhythmias] 03-10-2024 Chronic Coma; stupor; and brain damage (20 sources) Loss of consciousness; Translations: [Unspecified coma] 10-15-2021 Episodic Complications of surgical procedures or medical care (20 sources) Postoperative hypothyroidism; Translations: [Postprocedural hypothyroidism] Onset: 0 04-17-2021 Chronic Conditions associated with dizziness or vertigo (20 sources) Vertigo; Translations: [Dizziness and giddiness] Episodic Deficiency and other anemia (20 sources) Chronic anemia; Translations: [Anemia, unspecified] 10-15-2021 Episodic E Codes: Fall (20 sources) Accidental fall ; Translations: [Unspecified fall, initial encounter] Onset: 2 10-07-2021 Episodic Esophageal disorders (20 sources) Gastroesophageal reflux disease; Translations: [Gastro-esophageal reflux disease without esophagitis] Onset: 6 05-24-2015 Chronic Essential hypertension (20 sources) Essential hypertension; Translations: [Essential (primary) hypertension] Onset: 9 06-12-2018 Chronic External cause codes: Fall (2 sources) Fall; Translations: [Fall] 04-17-2020 Fluid and electrolyte disorders (20 sources) Hypokalemia; Translations: [Hypokalemia] Onset: 2 10-12-2021 Episodic Fracture of upper limb (20 sources) Closed fracture of shaft of ulna; Translations: [Displaced oblique fracture of shaft of right ulna, subsequent encounter for closed fracture with nonunion] Onset: 6 06-20-2015 Episodic Fracture of upper limb (20 sources) Closed fracture of humerus; Translations: [Unspecified fracture of shaft of humerus, left arm, initial encounter for closed fracture] Onset: 2 10-07-2021 Episodic Immunizations and screening for infectious disease (1 source) Suspected disease caused by 2019-nCoV; Translations: [Suspected COVID-19 virus infection] 11-22-2022 Episodic Intracranial injury (20 sources) Traumatic hematoma of subdural space of neuraxis; Translations: [Concussion with no loss of consciousness] Onset: 0 04-17-2020 Episodic Malaise and fatigue (20 sources) Asthenia; Translations: [Weakness] Onset: 5 05-20-2019 Episodic Melanomas of skin (20 sources) Malignant melanoma of skin; Translations: [Malignant melanoma of skin, unspecified] Onset: 5 05-28-2016 Chronic Other circulatory disease (6 sources) Low blood pressure; Translations: [Hypotension, unspecified] 05-19-2023 Episodic Other circulatory disease (3 sources) Hypotension, unspecified; Translations: [Hypotension, unspecified] 05-19-2023 Episodic Other connective tissue disease (15 sources) Neuropathic pain; Translations: [Neuralgia and neuritis, unspecified] 03-03-2022 Episodic Other ear and sense organ disorders (1 source) Otalgia, right ear; Translations: [Otalgia, unspecified] Episodic Other fractures (20 sources) Fracture of twelfth thoracic vertebra; Translations: [Wedge compression fracture of T11-T12 vertebra, initial encounter for closed fracture] 02-14-2019 Episodic Other fractures (20 sources) Fracture of rib; Translations: [Fracture of one rib, left side, initial encounter for closed fracture] 10-15-2021 Episodic Other fractures (2 sources) Closed flail chest; Translations: [Flail chest, subsequent encounter for fracture with routine healing] Episodic Other fractures (4 sources) Fracture of left rib; Translations: [Fracture of one rib, left side, initial encounter for closed fracture] 10-15-2021 Episodic Other gastrointestinal disorders (20 sources) Constipation; Translations: [Constipation, unspecified] Onset: 6 08-01-2007 Episodic Other injuries and conditions due to external causes (20 sources) Closed injury of head; Translations: [Unspecified injury of head, initial encounter] 05-29-2021 Episodic Other injuries and conditions due to external causes (20 sources) Injury of head; Translations: [Unspecified injury of head, initial encounter] 10-11-2019 Episodic Other injuries and conditions due to external causes (2 sources) Multiple injuries; Translations: [Unspecified multiple injuries, initial encounter] Onset: 2 10-07-2021 Episodic Other injuries and conditions due to external causes (10 sources) Wound finding; Translations: [Other injury of unspecified body region, initial encounter] 07-02-2022 Episodic Other injuries and conditions due to external causes (6 sources) Systemic inflammatory response syndrome; Translations: [Systemic inflammatory response syndrome (SIRS) of non-infectious origin without acute organ dysfunction] 05-19-2023 Episodic Other injuries and conditions due to external causes (3 sources) Systemic inflammatory response syndrome (SIRS) of non-infectious origin without acute organ dysfunction; Translations: [Systemic inflammatory response syndrome, unspecified] 05-19-2023 Episodic Other injuries and conditions due to external causes (1 source) Injury of left upper arm; Translations: [Unspecified injury of left shoulder and upper arm, subsequent encounter] 03-17-2021 Episodic Other lower respiratory disease (12 sources) Cough; Translations: [Cough] 11-22-2022 Episodic Other lower respiratory disease (8 sources) Hypoxia; Translations: [Hypoxemia] 11-22-2022 Episodic Other lower respiratory disease (2 sources) Hypoxemia; Translations: [Hypoxemia] 11-22-2022 Episodic Other lower respiratory disease (1 source) Dyspnea; Translations: [Shortness of breath] 11-22-2022 Episodic Other lower respiratory disease (7 sources) Dyspnea on exertion; Translations: [Other forms of dyspnea] 11-22-2022 Episodic Other lower respiratory disease (1 source) Other forms of dyspnea; Translations: [Other respiratory abnormalities] 11-23-2022 Episodic Other nervous system disorders (20 sources) Neuropathy; 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 Other nervous system disorders (6 sources) Disorder of brain; 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] 05-19-2023 Chronic Other nervous system disorders (3 sources) Other encephalopathy; 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] 05-19-2023 Chronic Other nutritional; endocrine; and metabolic disorders (20 sources) Hypocalcemia; Translations: [Hypocalcemia] Onset: 0 04-17-2021 Chronic Other nutritional; endocrine; and metabolic disorders (6 sources) Ketosis; 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] 05-19-2023 Chronic Other nutritional; endocrine; and metabolic disorders (3 sources) Other specified metabolic disorders; 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] 05-19-2023 Chronic Other screening for suspected conditions (not mental disorders or infectious disease) (7 sources) Creatinine level - finding; Translations: [Other specified abnormal findings of blood chemistry] 05-19-2023 Episodic Other upper respiratory infections (1 source) Acute upper respiratory infection; Translations: [Acute upper respiratory infection, unspecified] Episodic Pleurisy; pneumothorax; pulmonary collapse (20 sources) Left pneumothorax; Translations: [Pneumothorax, unspecified] Onset: 2 10-07-2021 Episodic Poisoning by nonmedicinal substances (20 sources) Bee sting; Translations: [Toxic effect of venom of bees, accidental (unintentional), initial encounter] 01-18-2021 Episodic Residual codes; unclassified (20 sources) Finding of region of thorax; Translations: [Presence of other specified functional implants] 10-15-2021 Chronic Respiratory failure; insufficiency; arrest (adult) (4 sources) Acute respiratory failure; Translations: [Acute respiratory failure with hypoxia] 05-19-2023 Episodic Rheumatoid arthritis and related disease (1 source) Rheumatoid arthritis, unspecified; Translations: [Rheumatoid arthritis, unspecified] Onset: 4 Chronic Secondary malignancies (20 sources) Secondary malignant neoplasm of axillary lymph nodes; Translations: [Secondary and unspecified malignant neoplasm of axilla and upper limb lymph nodes] Onset: 3 07-03-2012 Chronic Skull and face fractures (10 sources) Fracture of orbital floor; Translations: [Fracture of orbital floor, right side, initial encounter for closed fracture] 07-02-2022 Episodic Spondylosis; intervertebral disc disorders; other back problems (1 source) Torticollis; Translations: [Torticollis] Onset: 5 Episodic Thyroid disorders (20 sources) Hypothyroidism; Translations: [Hypothyroidism, unspecified] Onset: 5 Chronic Unclassified (1 source) Cough, unspecified; Translations: [Cough, unspecified] Onset: 5 Urinary tract infections (20 sources) Chronic interstitial cystitis; Translations: [Interstitial cystitis (chronic) with hematuria] Onset: 5 02-10-2015 Chronic Urinary tract infections (20 sources) Urinary tract infectious disease; Translations: [Urinary tract infection, site not specified] Onset: 5 05-20-2019 Episodic Past or Other Problems Problem Classification Problem Date Documented Da te Episodic/Chronic Allergic reactions (20 sources) Contact dermatitis; Translations: [Unspecified contact dermatitis, unspecified cause] Onset: 08-14-2006 08-14-2006 Episodic Cancer of breast (20 sources) History of malignant neoplasm of breast; Translations: [Personal history of malignant neoplasm of breast] Onset: 02-11-2013 02-11-2013 Episodic Cardiac dysrhythmias (1 source) Palpitations; Translations: [Palpitations] Onset: 03-26-2024 Episodic Crushing injury or internal injury (20 sources) Contusion of lung; Translations: [Contusion of lung, unilateral, initial encounter] Onset: 10-12-2021 10-12-2021 Episodic Diseases of white blood cells (4 sources) Elevated white blood cell count, unspecified; Translations: [Other drug-induced agranulocytosis] Onset: 07-17-2012 Resolved: 10-03-2012 10-03-2012 Chronic Genitourinary symptoms and ill-defined conditions (10 sources) Pyuria; Translations: [Pyuria] Onset: 05-20-2024 05-19-2023 Episodic Melanomas of skin (20 sources) History of malignant melanoma of the skin; Translations: [Personal history of malignant melanoma of skin] Onset: 12-10-2008 12-10-2008 Episodic Neoplasms of unspecified nature or uncertain behavior (20 sources) Neoplasm of uncertain behavior of skin; Translations: [Neoplasm of uncertain behavior of skin] Onset: 02-11-2009 02-11-2009 Episodic Open wounds of head; neck; and trunk (20 sources) Facial laceration ; Translations: [Laceration without foreign body of other part of head, initial encounter] Onset: 04-16-2020 04-16-2020 Episodic Other and unspecified benign neoplasm (20 sources) Benign neoplasm of skin of upper limb; Translations: [Other benign neoplasm of skin of unspecified upper limb, including shoulder] Onset: 12-10-2008 12-10-2008 Episodic Other and unspecified benign neoplasm (20 sources) Benign neoplasm of skin of trunk; Translations: [Other benign neoplasm of skin of trunk] Onset: 12-10-2008 12-10-2008 Episodic Other and unspecified benign neoplasm (20 sources) Dysplastic nevus of trunk; Translations: [Other benign neoplasm of skin of trunk] Onset: 02-11-2009 02-11-2009 Episodic Other and unspecified benign neoplasm (20 sources) Melanocytic nevus of lower limb; Translations: [Melanocytic nevi of unspecified lower limb, including hip] Onset: 02-11-2009 02-11-2009 Episodic Other and unspecified benign neoplasm (20 sources) Melanocytic nevus of trunk; Translations: [Melanocytic nevi of trunk] Onset: 11-15-2009 11-15-2009 Episodic Other and unspecified benign neoplasm (20 sources) Blue nevus of skin; Translations: [Other benign neoplasm of skin, unspecified] Onset: 11-13-2011 11-13-2011 Episodic Other and unspecified benign neoplasm (20 sources) Neoplasm of skin of foot; Translations: [Other benign neoplasm of skin of unspecified lower limb, including hip] Onset: 11-13-2011 11-13-2011 Episodic Other circulatory disease (20 sources) Non-neoplastic nevus; Translations: [Nevus, non-neoplastic] Onset: 12-10-2008 12-10-2008 Episodic Other connective tissue disease (20 sources) Pain in lower limb; Translations: [Pain in leg, unspecified] Onset: 10-26-2013 10-26-2013 Episodic Other fractures (20 sources) Closed fracture of multiple left ribs; Translations: [Multiple fractures of ribs, left side, initial encounter for closed fracture] Onset: 10-07-2021 10-07-2021 Episodic Other fractures (19 sources) Closed fracture of acromial end of clavicle; Translations: [Displaced fracture of lateral end of left clavicle, subsequent encounter for fracture with routine healing] Onset: 10-12-2021 10-12-2021 Episodic Other fractures (19 sources) Closed fracture cervical vertebra, transverse process; Translations: [Fracture of neck, unspecified, initial encounter] Onset: 10-12-2021 10-12-2021 Episodic Other fractures (2 sources) Flail chest, subsequent encounter for fracture with routine healing; Translations: [Closed fracture of multiple ribs with flail chest with routine healing, subsequent encounter] Onset: 11-02-2021 Episodic Other fractures (1 source) Multiple fractures of ribs, left side, initial encounter for closed fracture; Translations: [Closed fracture of multiple ribs of left side, initial encounter] Onset: 10-17-2021 Episodic Other fractures (1 source) Fracture of neck, unspecified, initial encounter; Translations: [Closed fracture of cervical vertebra, unspecified cervical vertebral level, initial encounter ([facility])] Onset: 10-07-2021 Episodic Other injuries and conditions due to external causes (19 sources) Unspecified multiple injuries, initial encounter; Translations: [Other specified sites, including multiple injury] Onset: 10-07-2021 10-17-2021 Episodic Other nervous system disorders (1 source) Other symptoms and signs involving cognitive functions and awareness; Translations: [Other symptoms and signs involving cognitive functions and awareness] Onset: 10-14-2023 Episodic Other non-epithelial cancer of skin (20 sources) Squamous cell carcinoma of skin of lower extremity; Translations: [Squamous cell carcinoma of skin of unspecified lower limb, including hip] Onset: 05-13-2013 05-13-2013 Episodic Other non-traumatic joint disorders (20 sources) Shoulder pain; Translations: [Pain in unspecified shoulder] Onset: 10-26-2013 10-26-2013 Episodic Other skin disorders (20 sources) Scar conditions and fibrosis of skin; Translations: [Scar conditions and fibrosis of skin] Onset: 08-14-2006 11-15-2009 Episodic Other skin disorders (20 sources) Seborrheic keratosis; Translations: [Other seborrheic keratosis] Onset: 08-14-2006 08-14-2006 Episodic Other skin disorders (20 sources) Disorder of skin and/or subcutaneous tissue; Translations: [Other hypertrophic disorders of the skin] Onset: 08-14-2006 08-14-2006 Episodic Other skin disorders (20 sources) Disorder of skin pigmentation; Translations: [Disorder of pigmentation, unspecified] Onset: 12-10-2008 11-15-2009 Episodic Other skin disorders (20 sources) Solar lentigo; Translations: [Other melanin hyperpigmentation] Onset: 02-11-2009 11-07-2010 Episodic Other skin disorders (20 sources) Asteatosis cutis; Translations: [Xerosis cutis] Onset: 02-11-2009 02-11-2009 Episodic Other skin disorders (20 sources) Inflamed seborrheic keratosis; Translations: [Inflamed seborrheic keratosis] Onset: 05-13-2013 05-13-2013 Episodic Other skin disorders (20 sources) Hypertrophic scar; Translations: [Hypertrophic scar] Onset: 10-22-2013 10-22-2013 Episodic Residual codes; unclassified (20 sources) Estrogen receptor positive tumor; Translations: [Estrogen receptor positive status [ER+]] Onset: 07-03-2012 07-03-2012 Episodic Residual codes; unclassified (20 sources) At risk of disease; Translations: [Other specified personal risk factors, not elsewhere classified] Onset: 01-20-2015 01-20-2015 Episodic Residual codes; unclassified (20 sources) Tobacco use and exposure - finding; Translations: [Tobacco use] Onset: 05-24-2015 05-24-2015 Episodic Unclassified (20 sources) BROKEN ARM REPAIR 11-10-2021 Unclassified (2 sources) Creatinine level - finding; Translations: [High creatinine] 05-29-2023 Results Test Name Value Interpretation Reference Range Facility Urine Cultureon 09-13-2024 [facility] Citrobacter freundii [place] Count >100,000 Citrobacter freundii: REACTION Cefepime Islt BENJAMIN <=0.12 cefTRIAXone Islt BENJAMIN 0.5 S Ciprofloxacin Islt BENJAMIN 0.5 I Gentamicin Islt BENJAMIN <=1 S levoFLOXacin Islt BENJAMIN 1 I Meropenem Islt BENJAMIN <=0.25 S Nitrofurantoin Islt BENJAMIN <=16 S Pip+Tazo Islt BENJAMIN <=4 S TMP SMX Islt BENJAMIN >=320 R Normal [facility] Comment on above: Performed By: #### M 100.2200 #### [facility] [address] [place], [place] [address] [facility] [place], [place], [id number] Urine cultureOrdered By: Elena Richardson on 09-11-2024 Bacteria identified Cx Nom (U) Citrobacter freundii Abnormal [facility] Urine Cultureon 08-23-2024 [facility] Citrobacter youngae [place] Count 80,000-100,000 Citrobacter youngae: REACTION Cefepime Islt BENJAMIN <=0.12 cefTRIAXone Islt BENJAMIN 8 R Ciprofloxacin Islt BENJAMIN <=0.06 S Gentamicin Islt BENJAMIN <=1 S levoFLOXacin Islt BENJAMIN <=0.12 S Meropenem Islt BENJAMIN <=0.25 S Nitrofurantoin Islt BENJAMIN <=16 S Pip+Tazo Islt BENJAMIN <=4 S TMP SMX Islt BENJAMIN <=20 S Normal [facility] Comment on above: Performed By: #### M 100.2200 #### [facility] [address] [place], [place], [id number] Urine cultureOrdered By: Elena Richardson on 08-21-2024 Bacteria identified Cx Nom (U) Citrobacter youngae Abnormal [facility] Urine Cultureon 08-07-2024 [facility] Enterococcus faecali s [place] Count 11,000-25,000 Enterococcus faecalis: REACTION Ampicillin Islt BENJAMIN <=2 Ciprofloxacin Islt BENJAMIN >=8 R Gentamicin Synergy Susc Islt SYN-R R levoFLOXacin Islt BENJAMIN >=8 R Linezolid Islt BENJAMIN 2 S Nitrofurantoin Islt BENJAMIN <=16 S Streptomycin High Pot Susc Islt SYN-S S Tetracycline Islt BENJAMIN >=16 R Vancomycin Islt BENJAMIN 1 S Normal [facility] Comment on above: Performed By: #### M 100.2200 ####[facility] [address] [place], [place], [id number] Urine cultureOrdered By: Elena Richardson on 08-05-2024 Bacteria identified Cx Nom (U) Enterococcus faecalis Abnormal [facility] 12 Lead EKGon 07-04-2024 12 Lead EKG [facility] Cardiovascular Services [address] [place] [address] 12 Lead EKG 07/04/24 1343 MR#: [id number] Acct: [id number] Name: AIDEN FIELDS Consuelo Rep #: [id number] : 1945 78 From: Jose Hamilton MD Attending Dr: Status: DEP ER Ordering Dr: Froy Cameron DO Date: 07/04/24 Location: ED Sex: F C Admitted: Test Reason : Blood Pressure : */* mmHG Vent. Rate : 73 BPM Atrial Rate : 73 BPM P-R Int : 160 ms QRS Dur : 76 ms QT Int : 412 ms P-R-T Axes : 47 1 12 degrees QTcB Int : 453 ms Sinus rhythm with Premature atrial complexes Otherwise normal ECG Confirmed by JOSE HAMILTON MD ([id number]), manuscript editor JUVENCIO MARIA ([id number]) on 07/06/2024 8:17:29 AM Referred By: ANUPAMA Confirmed By: JOSE HAMILTON MD 07/06/24816 Date Jose Hamilton MD CC: Dr. Froy Cameron, DO; Dr. Erica Richardson DO Signed Normal [facility] Absolute lymphocyte countOrd ered By: Froy Cameron on 07-04-2024 Lymphocytes Auto (Unsp spec) [#/Vol] 1.95 10*3/uL 0.83-4.51 [facility] Absolute neutrophil countOrd ered By: Froy Cameron on 07-04-2024 Neutrophils (Bld) [#/Vol] 6.0 10*3/uL 2.0-7.7 [facility] Amorphous sediment detection in urine sediment by light microscopyOrdered By: Froy Cameron on 07-04-2024 Amorphous sediment LM Ql (Urine sed) 2+ PHOS [facility] Anion gap in Serum or Plasma Ordered By: Froy Cameron on 07-04-2024 Anion gap [Moles/Vol] 12 mmol/L 5-15 [facility] Automated lymphocyte count a s percentage of total leukocytesOrdered By: Froy Cameron on 07-04-2024 Lymphocytes/100 WBC Auto (Unsp spec) 21.2 % 19-41 [facility] BUN/creatinine ratioOrdered By: Froy Cameron on 07-04-2024 Urea nitrogen/Creatinine [Mass ratio] 20.2 mg/mg High 10-20 [facility] Basophil percentageOrdered B y: Froy Cameron on 07-04-2024 Basophils/100 WBC (Bld) 0.9 % 0-1 [facility] Bilirubin Test strip Ql (U)O rdered By: Froy Caemron on 07-04-2024 Bilirubin Ql (U) Negative Negative [facility] Bilirubin, totalOrdered By: Froy Cameron on 07-04-2024 Bilirubin [Mass/Vol] 0.35 mg/dL 0.00-1.30 [facility] CBC W/Diff, Automatedon 06-20 Absolute Lymph 1.95 X10 3/uL Normal 0.83-4.51 [facility] Comment on above: Performed By: #### L 501.9520, L500.4050, L100.0100 #### [facility] [address] [place], [address] Absolute Neut 6.0 X10 3/uL Normal 2.0-7.7 [facility] Comment on above: Performed By: #### L 501.9520, L500.4050, L100.0100 #### [facility] [address] [place], [address] Basophils/100 WBC (Bld) 0.9 % Normal 0-1 [facility] Comment on above: Performed By: #### L 501.9520, L500.4050, L100.0100 #### [facility] [address] [place], [address] Eosinophils/100 WBC (Bld) 3.6 % Normal 0-5 [facility] Comment on above: Performed By: #### L 501.9520, L500.4050, L100.0100 #### [facility] [address] [place], [address] Erythrocyte distribution width (RBC) [Ratio] 13.4 % Normal 11.6-14.6 [facility] Comment on above: Performed By: #### L 501.9520, L500.4050, L100.0100 #### [facility] [address] [place], [address] Hematocrit (Bld) [Volume fraction] 36.9 % Low 37-47 [facility] Comment on above: Performed By: #### L 501.9520, L500.4050, L100.0100 #### [facility] [address] [place], [address] Hemoglobin (Bld) [Mass/Vol] 12.3 g/dL Normal 12.0-15.0 [facility] Comment on above: Performed By: #### L 501.9520, L500.4050, L100.0100 #### [facility] [address] [place], [address] IG% 0.400 Normal 0.0-0.9 [facility] Comment on above: Result Comment: IG% - Immature Granulocytes (promyelocytes, myelocytes and metamyelocytes) > 1% indicates that a LEFT SHIFT is Present. Performed By: #### L 501.9520, L500.4050, L100.0100 #### [facility] [address] [place], [address] Lymphocytes/100 WBC (Bld) 21.2 % Normal 19-41 [facility] Comment on above: Performed By: #### L 501.9520, L500.4050, L100.0100 #### [facility] [address] [place], [address] MCH (RBC) [Entitic mass] 32.5 pg High 27.0-32.0 [facility] Comment on above: Performed By: #### L 501.9520, L500.4050, L100.0100 #### [facility] [address] [place], [address] MCHC (RBC) [Mass/Vol] 33.3 g/dL Normal 32-36 [facility] Comment on above: Performed By: #### L 501.9520, L500.4050, L100.0100 #### [facility] [address] [place], [address] MCV (RBC) [Entitic vol] 97.6 fL Normal 81-99 [facility] Comment on above: Performed By: #### L 501.9520, L500.4050, L100.0100 #### [facility] [address] [place], [address] Monocytes/100 WBC (Bld) 8.9 % Normal 0-10 [facility] Comment on above: Performed By: #### L 501.9520, L500.4050, L100.0100 #### [facility] [address] [place], [address] Neutrophils/100 WBC (Bld) 65.0 % Normal 47-70 [facility] Comment on above: Performed By: #### L 501.9520, L500.4050, L100.0100 #### [facility] [address] [place], [address] Nucleated RBC (Bld) [#/Vol] 0 10*3/uL Normal 0-5 [facility] Comment on above: Performed By: #### L 501.9520, L500.4050, L100.0100 #### [facility] [address] [place], [address] Platelet mean volume (Bld) [Entitic vol] 11.8 fL Normal 6.2-12.0 [facility] Comment on above: Performed By: #### L 501.9520, L500.4050, L100.0100 #### [facility] [address] [place], [address] Platelets (Bld) [#/Vol] 236 10*3/uL Normal 150-450 [facility] Comment on above: Performed By: #### L 501.9520, L500.4050, L100.0100 #### [facility] [address] [place], [address] RBC (Bld) [#/Vol] 3.78 10*6/uL Low 4.2-5.4 [facility] Comment on above: Performed By: #### L 501.9520, L500.4050, L100.0100 #### [facility] [address] [place], [address] RDW SD 48.0 fl High 35.1-43.9 [facility] Comment on above: Performed By: #### L 501.9520, L500.4050, L100.0100 #### [facility] [address] [place], [address] WBC (Bld) [#/Vol] 9.2 10*3/uL Normal 4.4-11.0 [facility] Comment on above: Performed By: #### L 501.9520, L500.4050, L100.0100 #### [facility] [address] [place], [address] Carbon dioxide, total [Moles /volume] in Central venous bloodOrdered By: Froy Cameron on 07-04-2024 CO2 [Moles/Vol] 26.3 mmol/L 21.0-32.0 [facility] Chest PA and Lateralon 07-04 Chest PA and Lateral [facility] Imaging Services [address] [place] [address] Chest PA and Lateral MR#: [id number] Acct: [id number] Name: AIDEN FIELDS Rep #: [id number] : 1945 F 78 From: Reagan Nguyen PCP: Dr. Erica Richardson DO Status: [facility] ER Study: Chest PA and Lateral Date of Exam: 07/04/24 Exam# [id number] Ordering Dr: Froy Cameron DO PROCEDURE: CHEST PA AND LATERAL REASON FOR EXAM: COUGH TECHNIQUE: Two views of the chest COMPARISON: 06/04/2024 FINDINGS: Cardiomediastinal silhouette is within normal limits. Lungs are clear. No sizable pneumothorax. Right MediPort catheter in place. Status post left rib plating and fixation of the proximal right humerus. RAD/Chest PA and Lateral IMPRESSION: No acute airspace abnormality. Reading Location: [facility] CC: Dr. Froy Cameron, DO; Dr. Erica Richardson, DO Calculation Clerk: Signed Normal [facility] Chloride assayOrdered By: Miracle Cameron on 07-04-2024 Chloride [Moles/Vol] 100 mmol/L 98-108 [facility] Comprehensive Metabolic Prof ilon 07-04-2024 Albumin [Mass/Vol] 4.0 g/dL Normal 3.4-4.8 [facility] Comment on above: Performed By: #### L 501.9520, L500.4050, L100.0100 #### [facility] [address] [place], [address] Albumin/Globulin [Mass ratio] 1.4 {ratio} Normal 0.9-2.4 [facility] Comment on above: Performed By: #### L 501.9520, L500.4050, L100.0100 #### [facility] [address] [place], [address] ALK PHOS 82 U/L Normal 35-104 [facility] Comment on above: Performed By: #### L 501.9520, L500.4050, L100.0100 #### [facility] [address] [place], [address] ALT [Catalytic activity/Vol] 12 U/L Normal <=34 [facility] Comment on above: Performed By: #### L 501.9520, L500.4050, L100.0100 #### [facility] [address] [place], [address] AST [Catalytic activity/Vol] 21 U/L Normal <=31 [facility] Comment on above: Performed By: #### L 501.9520, L500.4050, L100.0100 #### [facility] [address] [place], [address] Bilirubin [Mass/Vol] 0.35 mg/dL Normal 0.00-1.30 [facility] Comment on above: Performed By: #### L 501.9520, L500.4050, L100.0100 #### [facility] [address] [place], [address] BUN/CRE 20.2 RATIO High 10-20 [facility] Comment on above: Performed By: #### L 501.9520, L500.4050, L100.0100 #### [facility] [address] [place], [address] Calcium [Mass/Vol] 8.6 mg/dL Normal 7.6-11.0 [facility] Comment on above: Performed By: #### L 501.9520, L500.4050, L100.0100 #### [facility] [address] [place], [address] Chloride [Moles/Vol] 100 mmol/L Normal 98-108 [facility] Comment on above: Performed By: #### L 501.9520, L500.4050, L100.0100 #### [facility] [address] [place], [address] CO2 [Moles/Vol] 26.3 mmol/L Normal 21.0-32.0 [facility] Comment on above: Performed By: #### L 501.9520, L500.4050, L100.0100 #### [facility] [address] [place], [address] Creatinine [Mass/Vol] 0.79 mg/dL Normal 0.70-1.20 [facility] Comment on above: Performed By: #### L 501.9520, L500.4050, L100.0100 #### [facility] [address] [place], [address] ECRCL 61.64 ml/min Normal 50-250 [facility] Comment on above: Performed By: #### L 501.9520, L500.4050, L100.0100 #### [facility] [address] [place], [address] GAP 12 Normal 5-15 [facility] Comment on above: Performed By: #### L 501.9520, L500.4050, L100.0100 #### [facility] [address] [place], [address] GFR/1.73 sq M.predicted among non-blacks MDRD (S/P/Bld) [Vol rate/Area] 77 mL/min/{1.73_m2} Normal >60 [facility] Comment on above: Result Comment: mL/m in/1.73m2 CKD-EPI Creatinine Equation (2020) Performed By: #### L 501.9520, L500.4050, L100.0100 #### [facility] [address] [place], [address] Globulin (S) [Mass/Vol] 2.9 g/dL Normal 2.2-4.2 [facility] Comment on above: Performed By: #### L 501.9520, L500.4050, L100.0100 #### [facility] [address] [place], [address] Glucose [Mass/Vol] 98 mg/dL Normal 70-99 [facility] Comment on above: Performed By: #### L 501.9520, L500.4050, L100.0100 #### [facility] [address] [place], [address] Potassium [Moles/Vol] 4.0 mmol/L Normal 3.3-5.1 [facility] Comment on above: Performed By: #### L 501.9520, L500.4050, L100.0100 #### [facility] [address] [place], [address] Sodium [Moles/Vol] 139 mmol/L Normal 133-145 [facility] Comment on above: Performed By: #### L 501.9520, L500.4050, L100.0100 #### [facility] [address] [place], [address] T PROT 6.9 g/dL Normal 5.9-8.4 [facility] Comment on above: Performed By: #### L 501.9520, L500.4050, L100.0100 #### [facility] [address] [place], [address] Urea nitrogen [Mass/Vol] 16 mg/dL Normal 4-19 [facility] Comment on above: Performed By: #### L 501.9520, L500.4050, L100.0100 #### [facility] [address] [place], [address] Emergency Department Summary on 07-04-2024 Emergency Department Summary [facility] Medical Records Department [address] [place] [address] Emergency Department Summary 07/04/24 MR#: [id number] Acct: [id number] Name: AIDEN FIELDS Rep #: [id number] : 1945 78 From: Froy Cameron DO PCP: Dr. Erica Richardson, DO Status:DEP ER Location: ED HPI History of Present Illness Chief Complaint: General Illness Informant: patient and family Onset/Context/Timing Onset: Days Context: Gradual Onset Timing: Continuous Quality: Weakness Location: Generalized Worsened by: Nothing Relieved by: Nothing Narrative Narrative: Patient presents with generalized weakness and decreased oral intake that has been getting worse over the past several days. Family states the patient is only drinking water when she takes her medications. Family states patient not eating or drinking much of anything. Patient admits to some generalized weakness. Patient denies any recent fevers or chills. Patient denies any nausea or vomiting. The patient denies any neck or back pain. Patient denies any urinary complaints. Family is concerned that this could be due to her medications. [facility] Medical History Anxiety and depression Hypoparathyroidism after procedure Back problem Frequent falls Benzodiazepine dependence Opioid dependence Melanoma Tobacco abuse Hypothyroidism GERD (gastroesophageal reflux disease) Anemia Alcohol abuse Hypertension Multiple rib fractures Subdural hematoma Vitamin D deficiency Skin cancer Rheumatoid arthritis High cholesterol Calcium deficiency Glaucoma Breast cancer Arthritis Home Medications ???Medication ???Instructions ???Recorded ???Last Taken ???Type valacyclovir 1 gram tablet 1,000 mg PO DAILY SHINGLES 1 11/22/22 History dexamethasone sodium phosphate 0.1 1 drp ophthalmic (eye) DAILY 11/22/22 History % eye drops glaucoma clonazepam 1 mg tablet 1 mg PO BID #6 tabs 03/03/2211/22 Rx pregabalin 75 mg capsule 75 mg PO TID PAIN #9 caps 03/03/22 11/22/22 Rx amlodipine 5 mg tablet 5 mg PO DAILY 11/22/22 11/22/22 Hi story calcitriol 0.5 mcg capsule 0.5 mcg PO DAILY 11/22/22 11/22/22 History cholecalciferol (vitamin D3) 25 25 mcg PO DAILY SUPPLEMENT 3 11/22/22 History mcg (1,000 unit) capsule escitalopram oxalate 10 mg tablet 10 mg PO DAILY ANXIETY 11/22/22 0 11/22/22 History (Lexapro) magnesium oxide 500 mg PO DAILY SUPPLEMENT 3 11/22/22 History meclizine 25 mg tablet 25 mg PO TID Dizziness 11/22/22 History memantine 5 mg tablet 5 mg PO BID 11/22/22 11/22/22 Hist ory nabumetone 750 mg tablet 750 mg PO BID 11/22/22 11/22/22 Hi story quetiapine 100 mg tablet 25 mg PO DAILY DEPRESSION 11/22/22 11/22/22 History albuterol sulfate 90 mcg/actuation 2 puff inhalation Q6H PRN Unknown Rx aerosol inhaler (Proventil HFA) shortness of breath or wheezing #8.5 grams levothyroxine 125 mcg tablet 125 mcg PO DAILY #90 tabs 02/19/23 Unknown Rx acetaminophen 500 mg capsule 500 mg PO BID 05/19/23 Unknown His tory famotidine 20 mg tablet (Pepcid) 20 mg PO QHS 05/19/23 Unknown Hist ory polyethylene glycol 3350 17 17 g PO DAILY 05/19/23 Unknown His tory gram/dose oral powder (ClearLax) pyridoxine (vitamin B6) 100 mg 100 mg PO DAILY 05/19/23 Unknown H istory tablet levofloxacin 750 mg tablet 750 mg PO DAILY@0600 #6 tabs 05/21 Unknown Rx liothyronine 5 mcg tablet 5 mcg PO DAILY 07/04/24 Unknown Hi story potassium chloride 20 mEq 20 meq PO BID 07/04/24 Unknown His tory tablet,extended release quetiapine 25 mg tablet 25 mg PO QHS 07/04/24 Unknown Hist ory Allergy/AdvReac Type Severity Reaction Status Date / Time bacitracin (From Neosporin Allergy Unknown Unknown Verified 07/04/24 13:01 ([id number])) neomycin (From Neosporin Allergy Unknown Unknown Verified 03/02/24 21:55 ([id number])) polymyxin B (From Neosporin Allergy Unknown Unknown Verified 03/02/24 21:55 ([id number])) Antihistamines - Alkylamine Allergy PT UNSURE Verified 03/02/24 21:55 OF REACTION diphenhydramine (From Allergy PT UNSURE Verified 03/02/24 21:55 Benadryl) OF REACTION Family History Unknown Thyroid disorder Cancer High cholesterol Arthritis Mother Cancer Diabetes Father , Father at the age of 50 from successful suicide attempt. Suicidal intent Other Alcohol abuse Anxiety Depression Heart disease Hypertension Mental disorder Parkinson disease Psychiatric care Surgical History Status post glaucoma surgery H/O mastectomy H/O thyroidectomy S (more content not included)... Normal [facility] Eosinophil percentageOrdered By: Froy Cameron on 07-04-2024 Eosinophils/100 WBC (Bld) 3.6 % 0-5 [facility] Epithelial cells.squamous LM Ql (Urine sed)Ordered By: Froy Cameron on 07-04-2024 Epithelial cells.squamous LM.HPF (Urine sed) [#/Area] 0 /[HPF] 5-10 [facility] Erythrocyte distribution wid th ratioOrdered By: Froy Cameron on 07-04-2024 Erythrocyte distribution width (RBC) [Ratio] 13.4 % 11.6-14.6 [facility] Erythrocyte distribution wid th standard deviationOrdered By: Froy Cameron on 07-04-2024 Erythrocyte distribution width (RBC) [Entitic vol] 48.0 fL High 35.1-43.9 [facility] Erythrocyte distribution width (RBC) [Ratio] 48.0 fl High 35.1-43.9 [facility] Estimation of creatinine wilmer aranceOrdered By: Froy Cameron on 07-04-2024 Estimated Creatinine Clearance Calc 61.64 ml/min 50-250 [facility] GFR/1.73 sq M.predicted kai g non-blacks MDRD (S/P/Bld) [Vol rate/Area]Ordered By: Froy Cameron on 07-04-2024 Estimated GFR (MDRD) Non-Af Amer 77 >60 [facility] Comment on above: mL/min/1.73m2 CKD-EP I Creatinine Equation (2020) Glomerular filtration rate ( GFR) estimation/1.73 sq m using serum, plasma, or whole bOrdered By: Froy Cameron on 07-04-2024 GFR/1.73 sq M.predicted among non-blacks MDRD (S/P/Bld) [Vol rate/Area] 77 mL/min/{1.73_m2} >60 [facility] Comment on above: mL/min/1.73m2 CKD-EP I Creatinine Equation (2020) Glucose Ql (U)Ordered By: Miracle Cameron on 07-04-2024 Urine Glucose (UA) Normal mg/dl Normal [facility] Hematocrit Auto (Bld) [Volum e fraction]Ordered By: Froy Cameron on 07-04-2024 Hematocrit (Bld) [Volume fraction] 36.9 % Low 37-47 [facility] Hemoglobin measurementOrdere d By: Froy Cameron on 07-04-2024 Hemoglobin (Bld) [Mass/Vol] 12.3 g/dL 12.0-15.0 [facility] Immature granulocytes/100 WB C Auto (Bld)Ordered By: Froy Cameron on 07-04-2024 Immature granulocytes/100 WBC (Bld) 0.400 % 0.0-0.9 [facility] Comment on above: IG% - Immature Granu locytes (promyelocytes, myelocytes and metamyelocytes) > 1% indicates that a LEFT SHIFT is Present. Influenza virus A and B and SARS-CoV-2 (COVID-19) and Respiratory syncytial virus RNAOrdered By: Froy Cameron on 07-04-2024 SARS-CoV-2 (COVID-19) RNA LEONA+probe Ql (Unsp spec) [facility] Ketones Test strip Ql (U)Ord ered By: Froy Cameron on 07-04-2024 Ketones Ql (U) Negative Negative [facility] Laboratory - Chemistry and C hemistry - challengeOrdered By: Froy Cameron on 07-04-2024 AST [Catalytic activity/Vol] 21 U/L <32 [facility] Lymphocytes Auto (Unsp spec) [#/Vol]Ordered By: Froy Cameron on 07-04-2024 Lymphocytes (Bld) [#/Vol] 1.95 10*3/uL 0.83-4.51 [facility] Lymphocytes/100 WBC Auto (Un sp spec)Ordered By: Froy Cameron on 07-04-2024 Lymphocytes/100 WBC (Bld) 21.2 % 19-41 [facility] M100.678on 07-04-2024 M100.678 SARS-CoV-2 (COVID 19 ) Negative INFLUENZA A Negative INFLUENZA B Negative RSV PCR Negative Normal [facility] Comment on above: Performed By: #### M 100.678 ####[facility] [address] [place], [place], [id number] MCV (mean corpuscular volume ) determinationOrdered By: Froy Cameron on 07-04-2024 MCV (RBC) [Entitic vol] 97.6 fL 81-99 [facility] Mean corpuscular hemoglobin (MCH) determinationOrdered By: Froy Cameron on 07-04-2024 MCH (RBC) [Entitic mass] 32.5 pg High 27.0-32.0 [facility] Mean corpuscular hemoglobin concentration (MCHC) determinationOrdered By: Froy Cameron on 07-04-2024 MCHC (RBC) [Mass/Vol] 33.3 g/dL 32-36 [facility] Mean platelet volume determi nationOrdered By: Froy Cameron on 07-04-2024 Platelet mean volume (Bld) [Entitic vol] 11.8 fL 6.2-12.0 [facility] Microscopic analysis of urin e for red blood cells (RBC)Ordered By: Froy Cameron on 07-04-2024 Microscopic analysis of urine for red blood cells (RBC) 0 SEEN /hpf 0-5 [facility] Urine RBC 0 SEEN /hpf 0-5 [facility] Monocyte percentageOrdered B y: Froy Cameron on 07-04-2024 Monocytes/100 WBC (Bld) 8.9 % 0-10 [facility] Mucus LM Ql (Urine sed)Order ed By: Froy Cameron on 07-04-2024 Mucus Ql (Urine sed) 0 SEEN /hpf [facility] Neutrophil percentageOrdered By: Froy Cameron on 07-04-2024 Neutrophils/100 WBC (Bld) 65.0 % 47-70 [facility] Nitrite Test strip Ql (U)Ord ered By: Froy Cameron on 07-04-2024 Nitrite Ql (U) Negative Negative [facility] Nucleated red blood cell per centageOrdered By: Froy Cameron on 07-04-2024 Nucleated RBC/100 WBC (Bld) [Ratio] 0 % 0-5 [facility] Platelet countOrdered By: Miracle Cameron on 07-04-2024 Platelets (Bld) [#/Vol] 236 10*3/uL 150-450 [facility] Potassium (Unsp spec) [Mass/ Vol]Ordered By: Froy Cameron on 07-04-2024 Potassium [Moles/Vol] 4.0 mmol/L 3.3-5.1 [facility] Potassium measurement (mass/ volume)Ordered By: Froy Cameron on 07-04-2024 Potassium (Unsp spec) [Mass/Vol] 4.0 mmol/L 3.3-5.1 [facility] Protein Test strip Ql (U)Ord ered By: Froy Cameron on 07-04-2024 Protein Ql (U) Negative Negative [facility] RBC Auto (Bld) [#/Vol]Ordere d By: Froy Cameron on 07-04-2024 RBC (Bld) [#/Vol] 3.78 10*6/uL Low 4.2-5.4 [facility] Serum creatinine measurement (mass/volume)Ordered By: Froy Cameron on 07-04-2024 Creatinine [Mass/Vol] 0.79 mg/dL 0.70-1.20 [facility] Serum globulin measurementOr dered By: Froy Cameron on 07-04-2024 Globulin (S) [Mass/Vol] 2.9 g/dL 2.2-4.2 [facility] Serum glucose measurement (m ass/volume)Ordered By: Froy Cameron on 07-04-2024 Glucose [Mass/Vol] 98 mg/dL 70-99 [facility] Serum or plasma alanine kaur otransferase (ALT) measurementOrdered By: Froy Cameron on 07-04-2024 ALT [Catalytic activity/Vol] 12 U/L <35 [facility] Serum or plasma albumin rajni urement (mass/volume)Ordered By: Froy Cameron 07-04-2024 Albumin [Mass/Vol] 4.0 g/dL 3.4-4.8 [facility] Serum or plasma albumin/glob ulin mass ratioOrdered By: Froy Cameron 07-04-2024 Albumin/Globulin [Mass ratio] 1.4 {ratio} 0.9-2.4 [facility] Serum or plasma alkaline dedra sphatase measurementOrdered By: Froy Cameron 07-04-2024 ALP [Catalytic activity/Vol] 82 U/L 35-104 [facility] Serum or plasma calcium rajni urement (mass/volume)Ordered By: Froy Cameron on 07-04-2024 Calcium [Mass/Vol] 8.6 mg/dL 7.6-11.0 [facility] Serum or plasma urea nitroge n measurement (mass/volume)Ordered By: Froy Cameron 07-04-2024 Urea nitrogen [Mass/Vol] 16 mg/dL 4-19 [facility] Sodium levelOrdered By: Froy Lundbergalexandria on 07-04-2024 Sodium [Moles/Vol] 139 mmol/L 133-145 [facility] Squamous epithelial cells de tection in urine sediment by light microscopyOrdered By: Froy Lundbergalexandria on 07-04-2024 Epithelial cells.squamous LM Ql (Urine sed) 0 SEEN /hpf 5-10 [facility] TSH DL <= 0.005 mIU/L QnOrde red By: Froy Cameron on 07-04-2024 Thyroid Stimulating Hormone (TSH) 0.164 uIU/mL Low 0.300-4.200 [facility] TSH Qn 0.164 uIU/mL Low 0.300-4.200 [facility] Thyroid Stim Hormone (TSH)on 07-04-2024 TSH 0.164 uIU/mL Low 0.300-4.200 [facility] Comment on above: Performed By: #### L 501.9520, L500.4050, L100.0100 #### [facility] [address] [facility] [address] Total proteinOrdered By: Zeenat Cameron on 07-04-2024 Protein [Mass/Vol] 6.9 g/dL 5.9-8.4 [facility] Urinalysis, Completeon 07-04 AMORPHOUS 2+ PHOS Normal [facility] Comment on above: Order Comment: COLLE CTOR TO SPECIFY Performed By: #### L 400.0001 ####[facility] [address] [place], [address] RBC 0 SEEN Normal 0-5 [facility] Comment on above: Order Comment: COLLE CTOR TO SPECIFY Performed By: #### L 400.0001 ####[facility] [address] [place], [address] WBC 0-5 SEEN Normal 0-5 [facility] Comment on above: Order Comment: COLLE CTOR TO SPECIFY Performed By: #### L 400.0001 ####[facility] [address] [place], [place], [address] BACTERIA 0 SEEN Normal None Seen [facility] Comment on above: Order Comment: FER CTOR TO SPECIFY Performed By: #### L 400.0001 ####[facility] [address] [place], [address] EPI,SQUAMOUS 0 SEEN Normal 5-10 [facility] Comment on above: Order Comment: FER CTOR TO SPECIFY Performed By: #### L 400.0001 ####[facility] [address] [place], [address] Mucus Ql (Urine sed) 0 SEEN Normal [facility] Comment on above: Order Comment: FER CTOR TO SPECIFY Performed By: #### L 400.0001 ####[facility] [address] [place], [place], [id number] Urine blood detectionOrdered By: Froy Cameron on 07-04-2024 Urine Occult Blood Negative Negative [facility] Urine clarityOrdered By: Zeenat Cameron on 07-04-2024 Clarity (U) Clear Clear [facility] Urine color determinationOrd ered By: Froy Cameron on 07-04-2024 Color (U) Straw Yellow [facility] Urine glucose detectionOrder ed By: Froy Cameron on 07-04-2024 Glucose Ql (U) Normal mg/dl Normal [facility] Urine leukocyte esterase det ection by dipstickOrdered By: Froy Cameron on 07-04-2024 Leukocyte esterase Test strip Ql (U) Negative Negative [facility] Urine pHOrdered By: Froy gonzalez on 07-04-2024 pH (U) 8.0 [pH] 5.0 - 8.0 [facility] Urine sediment bacteria coun t by microscopy (number/high power field)Ordered By: Froy Cameron on 07-04-2024 Bacteria LM.HPF (Urine sed) [#/Area] 0 /[HPF] None Seen [facility] Urine specific gravity measu rementOrdered By: Froy Cameron on 07-04-2024 Specific gravity (U) [Rel density] 1.010 1.002-1.030 [facility] Urine urobilinogen measureme ntOrdered By: Froy Lundbergalexandria on 07-04-2024 Urobilinogen Ql (U) Normal mg/dl Normal [facility] Urobilinogen Ql (U)Ordered B y: Froy Cameron on 07-04-2024 Urine Urobilinogen Normal mg/dl Normal [facility] White blood cell (WBC) count Ordered By: Froy Lundbergalexandria on 07-04-2024 WBC (Bld) [#/Vol] 9.2 10*3/uL 4.4-11.0 [facility] White blood cell countOrdere d By: Froy Lundbergalexandria on 07-04-2024 Urine WBC 0-5 SEEN /hpf 0-5 [facility] White blood cell count 0-5 SEEN /hpf 0-5 [facility] Chest PA and Lateralon 06-04 Chest PA and Lateral [facility] Imaging Services [address] [place], [place] [address] Chest PA and Lateral MR#: [id number] Acct: [id number] Name: AIDEN FIELDS Rep #: [id number] : 1945 F 78 From: [place] PCP: Dr. Erica Richardson DO Status: REG CLI Study: Chest PA and Lateral Date of Exam: 06/04/24 Exam# [id number] Ordering Dr: Erica Richardson DO PROCEDURE: CHEST PA AND LATERAL REASON FOR EXAM: Cough. TECHNIQUE: Three-view PA and lateral chest. COMPARISON: AP chest of 05/19/2019. RAD/Chest PA and Lateral IMPRESSION: Generalized osteopenia is seen. Multiple fixed fractures of left ribs and the partially visualized right humerus noted, similar to the prior study. Central venous catheter positioning unchanged. Lungs are hypoinflated, but no gross acute pneumonic process is seen. No pleural effusion or pneumothorax is evident. The cardiomediastinal silhouette is stable, with a tortuous aorta noted. No evidence of cardiomegaly. Reading Location: [address] CC: Dr. Erica Richardson DO Calculation Clerk: Signed Normal [facility] Urine Cultureon 05-29-2024 [facility] Enterobacter cloacae complex [place] Count 25,000-50,000 Enterobacter cloacae complex: REACTION Cefepime Islt BENJAMIN <=0.12 Ciprofloxacin Islt BENJAMIN <=0.06 S Gentamicin Islt BENJAMIN <=1 S levoFLOXacin Islt BENJAMIN <=0.12 S Meropenem Islt BENJAMIN <=0.25 S Nitrofurantoin Islt BENJAMIN 32 S Pip+Tazo Islt BENJAMIN <=4 S TMP SMX Islt BENJAMIN >=320 R Normal [facility] Comment on above: Performed By: #### M 100.2200 #### [facility] [address] [place], [address] Absolute lymphocyte countOrd ered By: Erica Richardson on 05-27-2024 Lymphocytes Auto (Unsp spec) [#/Vol] 1.94 10*3/uL 0.83-4.51 [facility] Absolute neutrophil countOrd ered By: Erica Richardson on 05-27-2024 Neutrophils (Bld) [#/Vol] 5.9 10*3/uL 2.0-7.7 [facility] Albumin to globulin ratioOrd ered By: Erica Richardson on 05-27-2024 Albumin/Globulin [Mass ratio] 0.9 {ratio} 0.9-2.4 [facility] Automated lymphocyte count a s percentage of total leukocytesOrdered By: Erica Richardson on 05-27-2024 Lymphocytes/100 WBC Auto (Unsp spec) 21.2 % 19-41 [facility] Basophil percentageOrdered B y: Erica Richardson on 05-27-2024 Basophils/100 WBC (Bld) 0.8 % 0-1 [facility] Bilirubin, totalOrdered By: Erica Richardson on 05-27-2024 Bilirubin [Mass/Vol] 0.60 mg/dL 0.20-1.00 [facility] Comment on above: For patients on eltr ombopag therapy, use of Dimension [place] TBIL is not recommended. Blood urea nitrogen (BUN)/cr eatinine ratioOrdered By: Erica Richardson on 05-27-2024 Urea nitrogen/Creatinine [Mass ratio] 15.1 mg/mg 10-20 [facility] C-reactive protein measureme nt by high sensitivity methodOrdered By: Erica Richardson on 05-27-2024 C-Reactive Protein Extended Range 6.23 mg/L High 0.0-3.0 [facility] Comment on above: C-Reactive Protein ( CRP) provides useful information for thediagnosis, therapy and monitoring of inflammatory processesand associated diseases. For the evaluation of Relative Riskfor Cardiovascular Disease, a High Sensitivity CRP (HSCRP)should be ordered. C-reactive protein measurement by high sensitivity method 6.23 mg/L High 0.0-3.0 [facility] Comment on above: C-Reactive Protein ( CRP) provides useful information for thediagnosis, therapy and monitoring of inflammatory processesand associated diseases. For the evaluation of Relative Riskfor Cardiovascular Disease, a High Sensitivity CRP (HSCRP)should be ordered. CBC W/Diff, Automatedon Absolute Lymph 1.94 X10 3/uL Normal 0.83-4.51 [facility] Comment on above: Performed By: #### M 100.2200 #### [facility] [address] [place], [address] Absolute Neut 5.9 X10 3/uL Normal 2.0-7.7 [facility] Comment on above: Performed By: #### M 100.2200 #### [facility] [address] [place], [address] Basophils/100 WBC (Bld) 0.8 % Normal 0-1 [facility] Comment on above: Performed By: #### M 100.2200 #### [facility] [address] [place], [address] Eosinophils/100 WBC (Bld) 3.8 % Normal 0-5 [facility] Comment on above: Performed By: #### M 100.2200 #### [facility] [address] [place], [address] Erythrocyte distribution width (RBC) [Ratio] 14.0 % Normal 11.6-14.6 [facility] Comment on above: Performed By: #### M 100.2200 #### [facility] [address] [place], [address] Hematocrit (Bld) [Volume fraction] 39.2 % Normal 37-47 [facility] Comment on above: Performed By: #### M 100.2200 #### [facility] [address] [place], [address] Hemoglobin (Bld) [Mass/Vol] 12.6 g/dL Normal 12.0-15.0 [facility] Comment on above: Performed By: #### M 100.2200 #### [facility] [address] [place], [address] IG% 0.300 Normal 0.0-0.9 [facility] Comment on above: Result Comment: IG% - Immature Granulocytes (promyelocytes, myelocytes and metamyelocytes) > 1% indicates that a LEFT SHIFT is Present. Performed By: #### M 100.2200 #### [facility] [address] [place], [address] Lymphocytes/100 WBC (Bld) 21.2 % Normal 19-41 [facility] Comment on above: Performed By: #### M 100.2200 #### [facility] [address] [place], [address] MCH (RBC) [Entitic mass] 32.0 pg Normal 27.0-32.0 [facility] Comment on above: Performed By: #### M 100.2200 #### [facility] [address] [place], [address] MCHC (RBC) [Mass/Vol] 32.1 g/dL Normal 32-36 [facility] Comment on above: Performed By: #### M 100.2200 #### [facility] [address] [place], [address] MCV (RBC) [Entitic vol] 99.5 fL High 81-99 [facility] Comment on above: Performed By: #### M 100.2200 #### [facility] [address] [place], [address] Monocytes/100 WBC (Bld) 9.0 % Normal 0-10 [facility] Comment on above: Performed By: #### M 100.2200 #### [facility] [address] [place], [address] Neutrophils/100 WBC (Bld) 64.9 % Normal 47-70 [facility] Comment on above: Performed By: #### M 100.2200 #### [facility] [address] [place], [address] Nucleated RBC (Bld) [#/Vol] 0 10*3/uL Normal 0-5 [facility] Comment on above: Performed By: #### M 100.2200 #### [facility] [address] [place], [address] Platelet mean volume (Bld) [Entitic vol] 12.7 fL High 6.2-12.0 [facility] Comment on above: Performed By: #### M 100.2200 #### [facility] [address] [place], [address] Platelets (Bld) [#/Vol] 239 10*3/uL Normal 150-450 [facility] Comment on above: Performed By: #### M 100.2200 #### [facility] [address] [place], [address] RBC (Bld) [#/Vol] 3.94 10*6/uL Low 4.2-5.4 [facility] Comment on above: Performed By: #### M 100.2200 #### [facility] [address] [place], [address] RDW SD 51.3 fl High 35.1-43.9 [facility] Comment on above: Performed By: #### M 100.2200 #### [facility] [address] [place], [id number] ([phone] WBC (Bld) [#/Vol] 9.1 10*3/uL Normal 4.4-11.0 [facility] Comment on above: Performed By: #### M 100.2200 #### [facility] [address] [place], [address] CRPon 05-27-2024 C-REACTIVE PROT 6.23 mg/L High 0.0-3.0 [facility] Comment on above: Result Comment: C-Re active Protein (CRP) provides useful information for the diagnosis, therapy and monitoring of inflammatory processes and associated diseases. For the evaluation of Relative Risk for Cardiovascular Disease, a High Sensitivity CRP (HSCRP) should be ordered. Performed By: #### M 100.2200 #### [facility] [address] [place], [place], [address] Carbon dioxide measurementOr dered By: Erica Richardson on 05-27-2024 CO2 [Moles/Vol] 26.0 mmol/L 21.0-32.0 [facility] Chloride measurementOrdered By: Erica Richardson on 05-27-2024 Chloride [Moles/Vol] 99 mmol/L 98-107 [facility] Comprehensive Metabolic Prof ilon 05-27-2024 Albumin [Mass/Vol] 3.6 g/dL Normal 3.2-5.0 [facility] Comment on above: Performed By: #### M 100.2200 #### [facility] [address] [place], [place], [phone] (048) Albumin/Globulin [Mass ratio] 0.9 {ratio} Normal 0.9-2.4 [facility] Comment on above: Performed By: #### M 100.2200 #### [facility] [address] [place], [address] ALK P 90 U/L Normal 45-117 [facility] Comment on above: Performed By: #### M 100.2200 #### [facility] [address] [place], [address] ALT [Catalytic activity/Vol] 20 U/L Normal 13-56 [facility] Comment on above: Performed By: #### M 100.2200 #### [facility] [address] [place], [address] AST [Catalytic activity/Vol] 17 U/L Normal 15-37 [facility] Comment on above: Performed By: #### M 100.2200 #### [facility] [address] [place], [address] Bilirubin [Mass/Vol] 0.60 mg/dL Normal 0.20-1.00 [facility] Comment on above: Result Comment: For patients on eltrombopag therapy, use of Dimension [place] TBIL is not recommended. Performed By: #### M 100.2200 #### [facility] [address] [place], [address] BUN/CRE 15.1 RATIO Normal 10-20 [facility] Comment on above: Performed By: #### M 100.2200 #### [facility] [address] [place], [address] CA,Total 8.8 mg/dL Normal 8.5-10.1 [facility] Comment on above: Performed By: #### M 100.2200 #### [facility] [address] [place], [address] Chloride [Moles/Vol] 99 mmol/L Normal 98-107 [facility] Comment on above: Performed By: #### M 100.2200 #### [facility] [address] [place], [address] CO2 [Moles/Vol] 26.0 mmol/L Normal 21.0-32.0 [facility] Comment on above: Performed By: #### M 100.2200 #### [facility] [address] [place], [address] Creatinine [Mass/Vol] 0.79 mg/dL Normal 0.55-1.02 [facility] Comment on above: Result Comment: The validity of the calculated GFR GFRAA in patients over 70 years has not been determined. Clinical correlation is essential. Performed By: #### M 100.2200 #### [facility] [address] [place], [address] EST GFR - AA 90 mL/min Normal >60 [facility] Comment on above: Result Comment: Afri can Icelandic GFR Calc Performed By: #### M 100.2200 #### [facility] [address] [place], [address] GAP 11 Normal 5-15 [facility] Comment on above: Performed By: #### M 100.2200 #### [facility] [address] [place], [address] GFR/1.73 sq M.predicted among non-blacks MDRD (S/P/Bld) [Vol rate/Area] 75 mL/min/{1.73_m2} Normal >60 [facility] Comment on above: Result Comment: Non- GFR Calc Performed By: #### M 100.2200 #### [facility] [address] [place], [address] Globulin (S) [Mass/Vol] 4.1 g/dL Normal 2.2-4.2 [facility] Comment on above: Performed By: #### M 100.2200 #### [facility] [address] [place], [address] Glucose [Mass/Vol] 87 mg/dL Normal 74-106 [facility] Comment on above: Performed By: #### M 100.2200 #### [facility] [address] [place], [address] Potassium [Moles/Vol] 3.9 mmol/L Normal 3.5-5.1 [facility] Comment on above: Performed By: #### M 100.2200 #### [facility] [address] [place], [address] Sodium [Moles/Vol] 136 mmol/L Normal 136-145 [facility] Comment on above: Performed By: #### M 100.2200 #### [facility] [address] [place], [address] T PROT 7.7 g/dL Normal 6.4-8.2 [facility] Comment on above: Performed By: #### M 100.2200 #### [facility] [address] [place], [address] Urea nitrogen [Mass/Vol] 12 mg/dL Normal 7-18 [facility] Comment on above: Performed By: #### M 100.2200 #### [facility] [address] [place], [address] Direct serum free thyroxine (FT4) measurementOrdered By: Erica Richardson on 05-27-2024 Free T4 [Mass/Vol] 1.14 ng/dL 0.76-1.46 [facility] Eosinophil percentageOrdered By: Erica Richardson on 05-27-2024 Eosinophils/100 WBC (Bld) 3.8 % 0-5 [facility] Erythrocyte Sed Rateon 05-27 SED RATE 35 mm/hr High 0-30 [facility] Comment on above: Performed By: #### M 100.2200 #### [facility] [address] [place], [address] Erythrocyte distribution wid th ratioOrdered By: Erica Richardson on 05-27-2024 Erythrocyte distribution width (RBC) [Ratio] 14.0 % 11.6-14.6 [facility] Erythrocyte distribution wid th standard deviationOrdered By: Erica Richardson on 05-27-2024 Erythrocyte distribution width (RBC) [Entitic vol] 51.3 fL High 35.1-43.9 [facility] Erythrocyte distribution width (RBC) [Ratio] 51.3 fl High 35.1-43.9 [facility] Erythrocyte sedimentation ra teOrdered By: Erica Richardson on 05-27-2024 ESR (Bld) [Velocity] 35 mm/h High 0-30 [facility] Estimated glomerular filtrat ion rate (GFR) AmericanOrdered By: Erica Richardson on 05-27-2024 Estimated GFR (MDRD) Amer 90 mL/min >60 [facility] Comment on above: GFR Calc Free T3on 05-27-2024 Free T3 [Mass/Vol] 2.0 pg/mL Low 2.18-3.98 [facility] Comment on above: Performed By: #### M 100.2200 #### [facility] [address] [place] [address], [address] Free [id number] By: Erica Moeller s on 05-27-2024 Free T3 [Mass/Vol] 2.0 pg/mL Low 2.18-3.98 [facility] Free Triiodothyronine (T3) pg/dL 2.0 pg/mL Low 2.18-3.98 [facility] Glomerular filtration rate ( GFR) estimationOrdered By: Erica Richardson on 05-27-2024 Estimated GFR (MDRD) Non-Af Amer 75 mL/min >60 [facility] Comment on above: Non- GFR Calc GFR/1.73 sq M.predicted among non-blacks MDRD (S/P/Bld) [Vol rate/Area] 75 mL/min/{1.73_m2} >60 [facility] Comment on above: Non- GFR Calc Glucose measurementOrdered B y: Erica Richardson on 05-27-2024 Glucose [Mass/Vol] 87 mg/dL 74-106 [facility] Hematocrit Auto (Bld) [Volum e fraction]Ordered By: Erica Richardson on 05-27-2024 Hematocrit (Bld) [Volume fraction] 39.2 % 37-47 [facility] Hemoglobin measurementOrdere d By: Erica Richardson on 05-27-2024 Hemoglobin (Bld) [Mass/Vol] 12.6 g/dL 12.0-15.0 [facility] Immature granulocytes/100 WB C Auto (Bld)Ordered By: Erica Richardson on 05-27-2024 Immature granulocytes/100 WBC (Bld) 0.300 % 0.0-0.9 [facility] Comment on above: IG% - Immature Granu locytes (promyelocytes, myelocytes and metamyelocytes) > 1% indicates that a LEFT SHIFT is Present. Laboratory - Chemistry and C hemistry - challengeOrdered By: Erica Richardson on 05-27-2024 AST [Catalytic activity/Vol] 17 U/L 15-37 [facility] Lymphocytes Auto (Unsp spec) [#/Vol]Ordered By: Erica Richardson on 05-27-2024 Lymphocytes (Bld) [#/Vol] 1.94 10*3/uL 0.83-4.51 [facility] Lymphocytes/100 WBC Auto (Un sp spec)Ordered By: Erica Richardson on 05-27-2024 Lymphocytes/100 WBC (Bld) 21.2 % 19-41 [facility] MCV (mean corpuscular volume ) determinationOrdered By: Erica Richardson on 05-27-2024 MCV (RBC) [Entitic vol] 99.5 fL High 81-99 [facility] Mean corpuscular hemoglobin (MCH) determinationOrdered By: Erica Richardson on 05-27-2024 MCH (RBC) [Entitic mass] 32.0 pg 27.0-32.0 [facility] Mean corpuscular hemoglobin concentration (MCHC) determinationOrdered By: Erica Richardson on 05-27-2024 MCHC (RBC) [Mass/Vol] 32.1 g/dL 32-36 [facility] Mean platelet volume determi nationOrdered By: Erica Richardson on 05-27-2024 Platelet mean volume (Bld) [Entitic vol] 12.7 fL High 6.2-12.0 [facility] Monocyte percentageOrdered B y: Erica Richardson on 05-27-2024 Monocytes/100 WBC (Bld) 9.0 % 0-10 [facility] Neutrophil percentageOrdered By: Erica Richardson on 05-27-2024 Neutrophils/100 WBC (Bld) 64.9 % 47-70 [facility] Nucleated red blood cell per centageOrdered By: Erica Richardson on 05-27-2024 Nucleated RBC/100 WBC (Bld) [Ratio] 0 % 0-5 [facility] Platelet countOrdered By: Anny Richardson on 05-27-2024 Platelets (Bld) [#/Vol] 239 10*3/uL 150-450 [facility] Potassium measurementOrdered By: Erica Richardson on 05-27-2024 Potassium [Moles/Vol] 3.9 mmol/L 3.5-5.1 [facility] RBC Auto (Bld) [#/Vol]Ordere d By: Erica Richardson on 05-27-2024 RBC (Bld) [#/Vol] 3.94 10*6/uL Low 4.2-5.4 [facility] Serum anion gap measurementO rdered By: Erica Richardson on 05-27-2024 Anion gap [Moles/Vol] 11 mmol/L 5-15 [facility] Serum globulin measurementOr dered By: Erica Richardson on 05-27-2024 Globulin (S) [Mass/Vol] 4.1 g/dL 2.2-4.2 [facility] Serum or plasma alanine kaur otransferase (ALT) measurementOrdered By: Erica Richardson on 05-27-2024 ALT [Catalytic activity/Vol] 20 U/L 13-56 [facility] Serum or plasma albumin rajni urement (mass/volume)Ordered By: Erica Richardson on 05-27-2024 Albumin [Mass/Vol] 3.6 g/dL 3.2-5.0 [facility] Serum or plasma alkaline dedra sphatase measurementOrdered By: Erica Richardson on 05-27-2024 ALP [Catalytic activity/Vol] 90 U/L 45-117 [facility] Serum or plasma calcium rajni urement (mass/volume)Ordered By: Erica Richardson on 05-27-2024 Calcium [Mass/Vol] 8.8 mg/dL 8.5-10.1 [facility] Serum or plasma creatinine m easurement (mass/volume)Ordered By: Erica Richardson on 05-27-2024 Creatinine [Mass/Vol] 0.79 mg/dL 0.55-1.02 [facility] Comment on above: The validity of the calculated GFR & GFRAA in patients over 70 years has not been determined. Clinical correlation is essential. Serum or plasma thyroid stim ulating hormone (TSH) measurement (units/volume)Ordered By: Erica Richardson on 05-27-2024 TSH Qn 2.650 uIU/mL 0.358-3.740 [facility] Serum or plasma urea nitroge n measurement (mass/volume)Ordered By: Erica Richardson on 05-27-2024 Urea nitrogen [Mass/Vol] 12 mg/dL 7-18 [facility] Sodium levelOrdered By: Erica Richardson on 05-27-2024 Sodium [Moles/Vol] 136 mmol/L 136-145 [facility] T4 Free Directon 05-27-2024 T4 FREE DIRECT 1.14 ng/dL Normal 0.76-1.46 [facility] Comment on above: Performed By: #### M 100.2200 #### [facility] [address] [facility] [place], [place], [id number] TSH QnOrdered By: Erica Richardson on 05-27-2024 Thyroid Stimulating Hormone (TSH) 2.650 uIU/mL 0.358-3.740 [facility] Thyroid Stim Hormone (TSH)on 05-27-2024 TSH 2.650 uIU/mL Normal 0.358-3.740 [facility] Comment on above: Performed By: #### M 100.2200 #### [facility] [address] [facility] [place], [place], [id number] Total proteinOrdered By: Elena Richardson on 05-27-2024 Protein [Mass/Vol] 7.7 g/dL 6.4-8.2 [facility] Urine cultureOrdered By: Elena Richardson on 05-27-2024 Bacteria identified Cx Nom (U) Enterobacter cloacae complex Abnormal [facility] White blood cell (WBC) count Ordered By: Erica Richardson on 05-27-2024 WBC (Bld) [#/Vol] 9.1 10*3/uL 4.4-11.0 [facility] Urine Cultureon 04-26-2024 URC Presumptive E. coli [place] Count >100,000 Presumptive E. coli: REACTION Ampicillin Islt BENJAMIN 16 Ampicillin+Sulbac Islt BENJAMIN 16 I Cefepime Islt BENJAMIN <=0.12 S cefTRIAXone Islt BENJAMIN <=0.25 S Ciprofloxacin Islt BENJAMIN <=0.06 S B-Lactamase Extended Susc Islt NEG Gentamicin Islt BENJAMIN <=1 S levoFLOXacin Islt BENJAMIN <=0.12 S Meropenem Islt BENJAMIN <=0.25 S Nitrofurantoin Islt BENJAMIN <=16 S Pip+Tazo Islt BNEJAMIN <=4 S TMP SMX Islt BENJAMIN <=20 S Normal [facility] Comment on above: Performed By: #### M 100.2200 ####[facility] [address] [place], [address] Urine cultureOrdered By: Elena Richardson on 04-24-2024 Bacteria identified Cx Nom (U) Presumptive E. coli Abnormal [facility] 12 Lead EKGon 03-02-2024 12 Lead EKG [facility] [address] [place] [address] 12 Lead EKG 03/02/24 2201 MR#: [id number] Acct: [id number] Name: LIVEAIDEN PEGUERO Consuelo Rep #: [id number] : 1945 78 From: Jose Hamilton MD Attending Dr: Status: DEP ER Ordering Dr: Cheikh Ybarra DO Date: 03/02/24 Location: ED Sex: F C Admitted: Test Reason : DYSRHYTHMIA Blood Pressure : */* mmHG Vent. Rate : 80 BPM Atrial Rate : 80 BPM P-R Int : 140 ms QRS Dur : 76 ms QT Int : 374 ms P-R-T Axes : 46 -1 20 degrees QTcB Int : 431 ms Normal sinus rhythm with sinus arrhythmia Normal ECG Confirmed by ANIKA CRAMER, JOSE ([id number]), manuscript editor JUVENCIO MARIA ([id number]) on 03/03/2024 6:42:17 AM Referred By: Confirmed By: JOSE HAMILTON MD 03/03/24 0642 Date Jose aHmilton MD CC: Dr. Cheikh Ybarra DO; Dr. Erica Richardson DO Signed Normal [facility] Emergency Department Summary on 03-02-2024 Emergency Department Summary [facility] Medical Records Department [address] [place] [address] Emergency Department Summary 03/02/24 MR#: [id number] Acct: [id number] Name: AIDEN FIELDS Rep #: [id number] : 1945 78 From: Cheikh Ybarra DO PCP: Dr. Erica Richardson DO Status:DEP ER Location: ED HPI History of Present Illness Chief Complaint: Palpitations Informant: patient, EMS and other (aide) Narrative Narrative: 38-year-old female presenting to the emergency room following a fall. Patient states she was at home and sustained a fall. She was uninjured and was unable to get up. Was called for lift assist. They noted that she seemed weak and was having an irregular heartbeat. It was felt that is most likely PVCs and she was transported to the ED. Patient currently has no complaints. She denies any injuries from the fall. She denies any palpitations chest pain shortness of breath. She states that she has not had any difficulty ambulating around the house today. [facility] Medical History Anxiety and depression Hypoparathyroidism after procedure Back problem Frequent falls Benzodiazepine dependence Opioid dependence Melanoma Tobacco abuse Hypothyroidism GERD (gastroesophageal reflux disease) Anemia Alcohol abuse Hypertension Multiple rib fractures Subdural hematoma Vitamin D deficiency Skin cancer Rheumatoid arthritis High cholesterol Calcium deficiency Glaucoma Breast cancer Arthritis Home Medications ???Medication ???Instructions ???Recorded ???Last Taken ???Type potassium chloride 20 mEq 40 meq PO DAILY SUPPLEMENT 08/01/20 11/22/22 History tablet,extended release(part/cryst) valacyclovir 1 gram tablet 1,000 mg PO DAILY SHINGLES 08/01/20 11/22/22 History dexamethasone sodium phosphate 0.1 1 drp ophthalmic (eye) DAILY 03/09/21 11/22/22 History % eye drops glaucoma hydrocodone 10 mg-acetaminophen 1 tab PO Q6H PAIN 06/11/21 11/22/22 History 325 mg tablet clonazepam 1 mg tablet 1 mg PO BID #6 tabs 03/03/22 11/22/22 Rx pregabalin 75 mg capsule 75 mg PO TID PAIN #9 caps 03/03/22 11/22/22 Rx amlodipine 5 mg tablet 5 mg PO DAILY 11/22/22 11/22/22 History calcitriol 0.5 mcg capsule 0.5 mcg PO DAILY 11/22/22 11/22/22 History cholecalciferol (vitamin D3) 25 25 mcg PO DAILY SUPPLEMENT 11/22/22 11/22/22 History mcg (1,000 unit) capsule escitalopram oxalate 10 mg tablet 10 mg PO DAILY ANXIETY 11/22/22 11/22/22 History (Lexapro) magnesium oxide 500 mg PO DAILY SUPPLEMENT 11/22/22 11/22/22 History meclizine 25 mg tablet 25 mg PO TID Dizziness 11/22/22 11/22/22 History memantine 5 mg tablet 5 mg PO BID 11/22/22 11/22/22 History nabumetone 750 mg tablet 750 mg PO BID 11/22/22 11/22/22 History quetiapine 100 mg tablet 25 mg PO DAILY DEPRESSION 11/22/22 11/22/22 History albuterol sulfate 90 mcg/actuation 2 puff inhalation Q6H PRN 11/23/22 Unknown Rx aerosol inhaler (Proventil HFA) shortness of breath or wheezing #8.5 grams levothyroxine 125 mcg tablet 125 mcg PO DAILY #90 tabs 02/19/23 Unknown Rx acetaminophen 500 mg capsule 500 mg PO BID 05/19/23 Unknown History famotidine 20 mg tablet (Pepcid) 20 mg PO QHS 05/19/23 Unknown History polyethylene glycol 3350 17 17 g PO DAILY 05/19/23 Unknown History gram/dose oral powder (ClearLax) pyridoxine (vitamin B6) 100 mg 100 mg PO DAILY 05/19/23 Unknown History tablet levofloxacin 750 mg tablet 750 mg PO DAILY@0600 #6 tabs 05/21/23 Unknown Rx Allergy/AdvReac Type Severity Reaction Status Date / Time bacitracin (From Neosporin Allergy Unknown Unknown Verified 03/02/24 21:55 ([id number])) neomycin (From Neosporin Allergy Unknown Unknown Verified 03/02/24 21:55 ([id number])) polymyxin B (From Neosporin Allergy Unknown Unknown Verified 03/02/24 21:55 ([id number])) Antihistamines - Alkylamine Allergy PT UNSURE Verified 03/02/24 21:55 OF REACTION diphenhydramine (From Allergy PT UNSURE Verified 03/02/24 21:55 Benadryl) OF REACTION Family History Unknown Thyroid disorder Cancer High cholesterol Arthritis Mother Cancer Diabetes Father , Father at the age of 50 from successful suicide attempt. Suicidal intent Other Alcohol abuse Anxiety Depression Heart disease Hypertension Mental disorder Parkinson disease Psychiatric care Surgical History Status post glaucoma surgery H/O mastectomy H/O thyroidectomy Social History household members: none Smoking Status: Former smoker second hand exposure: Yes alcohol intake: current alcohol intake frequency: 3 or more drinks per d (more content not included)... Normal [facility] Emergency Department Summary on 12-18-2023 Emergency Department Summary [facility] Medical Records Department [address] [place] [address] Emergency Department Summary 12/18/23 MR#: [id number] Acct: [id number] Name: AIDEN FIELDS Consuelo Rep #: [id number] : 1945 78 From: Jorge Cardona MD PCP: Dr. Erica Richardson DO Status:REG ER Location: ED HPI History of Present Illness Chief Complaint: Head Injury Detail of Chief Complaint: Mechanical fall with contusion and laceration right side of forehead Informant: patient and other (Live-in aide) Onset/Context/Timing Onset: Hours Mechanism/Context: Blunt Injury and Fall (From standing height. Patient uses a walker) Location of pain/injuries: - (Patient denies any pain.) Location: Injury right forehead Current Severity: 0/10 Maximum Severity: 0/10 Worsened by: Nothing Relieved by: Not applicable Associated Symptoms Associated Symptoms: Negative for Parasthesias, Weakness, Loss of function, Inability to ambulate, Loss of consciousness or Amnesia Narrative Narrative: Patient is a 78-year-old woman who had a mechanical fall. She hit her head in the restroom. She was not dazed and had no loss of conscious. She denies headache. Denies neck pain. She denies d ouble vision, blurred vision loss of vision. She is status post cataract surgery. She denies epistaxis. Denies dental trauma. Denies jaw pain. Denies neck pain. Denies paresthesia, anesthesia or motor weakness upper lower extremity from baseline. She denies cardiac or respiratory symptoms. She denies nausea, vomiting or diarrhea. She is not on antithrombotic or anticoagulant. Tetanus Immunization: Unknown Prior similar symptoms: No Recent Illness/Hospitalization : [facility] Medical History Anxiety and depression Hypoparathyroidism after procedure Back problem Frequent falls Benzodiazepine dependence Opioid dependence Melanoma Tobacco abuse Hypothyroidism GERD (gastroesophageal reflux disease) Anemia Alcohol abuse Hypertension Multiple rib fractures Subdural hematoma Vitamin D deficiency Skin cancer Rheumatoid arthritis High cholesterol Calcium deficiency Glaucoma Breast cancer Arthritis Home Medications ???Medication ???Instructions ???Recorded ???Last Taken ???Type potassium chloride 20 mEq 40 meq PO DAILY SUPPLEMENT 08/01/20 11/22/22 History tablet,extended release(part/cryst) valacyclovir 1 gram tablet 1,000 mg PO DAILY SHINGLES 08/01/20 11/22/22 History dexamethasone sodium phosphate 0.1 1 drp ophthalmic (eye) DAILY 03/09/21 11/22/22 History % eye drops glaucoma hydrocodone 10 mg-acetaminophen 1 tab PO Q6H PAIN 06/11/21 11/22/22 History 325 mg tablet clonazepam 1 mg tablet 1 mg PO BID #6 tabs 03/03/22 11/22/22 Rx pregabalin 75 mg capsule 75 mg PO TID PAIN #9 caps 03/03/22 11/22/22 Rx amlodipine 5 mg tablet 5 mg PO DAILY 11/22/22 11/22/22 History calcitriol 0.5 mcg capsule 0.5 mcg PO DAILY 11/22/22 11/22/22 History cholecalciferol (vitamin D3) 25 25 mcg PO DAILY SUPPLEMENT 11/22/22 11/22/22 History mcg (1,000 unit) capsule escitalopram oxalate 10 mg tablet 10 mg PO DAILY ANXIETY 11/22/22 11/22/22 History (Lexapro) magnesium oxide 500 mg PO DAILY SUPPLEMENT 11/22/22 11/22/22 History meclizine 25 mg tablet 25 mg PO TID Dizziness 11/22/22 11/22/22 History memantine 5 mg tablet 5 mg PO BID 11/22/22 11/22/22 History nabumetone 750 mg tablet 750 mg PO BID 11/22/22 11/22/22 History quetiapine 100 mg tablet 25 mg PO DAILY DEPRESSION 11/22/22 11/22/22 History albuterol sulfate 90 mcg/actuation 2 puff inhalation Q6H PRN 11/23/22 Unknown Rx aerosol inhaler (Proventil HFA) shortness of breath or wheezing #8.5 grams levothyroxine 125 mcg tablet 125 mcg PO DAILY #90 tabs 02/19/23 Unknown Rx acetaminophen 500 mg capsule 500 mg PO BID 05/19/23 Unknown History famotidine 20 mg tablet (Pepcid) 20 mg PO QHS 05/19/23 Unknown History polyethylene glycol 3350 17 17 g PO DAILY 05/19/23 Unknown History gram/dose oral powder (ClearLax) pyridoxine (vitamin B6) 100 mg 100 mg PO DAILY 05/19/23 Unknown History tablet levofloxacin 750 mg tablet 750 mg PO DAILY@0600 #6 tabs 05/21/23 Unknown Rx Allergy/AdvReac Type Severity Reaction Status Date / Time bacitracin (From Neosporin Allergy Unknown Unknown Verified 12/18/23 19:57 ([id number])) neomycin (From Neosporin Allergy Unknown Unknown Verified 12/18/23 19:57 ([id number])) polymyxin B (From Neosporin Allergy Unknown Unknown Verified 12/18/23 19:57 ([id number])) Antihistamines - Alkylamine Allergy PT UNSURE Verified 12/18/23 19:57 OF REACTION diphenhydramine (From Allergy PT UNSURE Verified 12/18/23 19:57 Benadryl) OF REACTION Family History Unknown Thyroid disorder Cancer High (more content not included)... Normal [facility] ANTINUCLEAR ANTIBODIES DIREC Ton 12-13-2023 MASHA,DIRECT Negative Normal Negative [facility] Comment on above: Result Comment: Perf ormed at: [address] [id number] Principal Planner: Mendez Dominguez PhD, Phone: [phone] Performed By: #### L 501.6710, L101.9900, L500.4050, L506.1000, L505.7010, L506.0400, L3100.5475, L100.0100, L501.90208, L4600.0100, L501.9520 ####[facility] [address] [place], [place], [id number] CCP IgG Antibodieson 024 CCP IgG Ab. 3 units Normal 0-19 [facility] Comment on above: Result Comment: Nega tive <20 Weak positive 20 - 39 Moderate positive 40 - 59 Strong positive >59 Performed at: [address] [id number] Principal Planner: Mendez Dominguez PhD, Phone: [phone] Performed By: #### L 501.6710, L101.9900, L500.4050, L506.1000, L505.7010, L506.0400, L3100.5475, L100.0100, L501.16375, L4600.0100, L501.9520 ####[facility] [address] [place], [place], [address] CBC W/Diff, Automatedon 11-21 Absolute Lymph 1.28 X10 3/uL Normal 0.83-4.51 [facility] Comment on above: Performed By: #### M 100.2200 #### [facility] [address] [place], [address] Absolute Neut 9.6 X10 3/uL High 2.0-7.7 [facility] Comment on above: Performed By: #### M 100.2200 #### [facility] [address] [place], [address] Basophils/100 WBC (Bld) 0.6 % Normal 0-1 [facility] Comment on above: Performed By: #### M 100.2200 #### [facility] [address] [place], [address] Eosinophils/100 WBC (Bld) 2.9 % Normal 0-5 [facility] Comment on above: Performed By: #### M 100.2200 #### [facility] [address] [place], [address] Erythrocyte distribution width (RBC) [Ratio] 13.2 % Normal 11.6-14.6 [facility] Comment on above: Performed By: #### M 100.2200 #### [facility] [address] [place], [address] Hematocrit (Bld) [Volume fraction] 39.3 % Normal 37-47 [facility] Comment on above: Performed By: #### M 100.2200 #### [facility] [address] [place], [address] Hemoglobin (Bld) [Mass/Vol] 12.4 g/dL Normal 12.0-15.0 [facility] Comment on above: Performed By: #### M 100.2200 #### [facility] [address] [place], [address] IG% 0.200 Normal 0.0-0.9 [facility] Comment on above: Result Comment: IG% - Immature Granulocytes (promyelocytes, myelocytes and metamyelocytes) > 1% indicates that a LEFT SHIFT is Present. Performed By: #### M 100.2200 #### [facility] [address] [place], [address] Lymphocytes/100 WBC (Bld) 10.5 % Low 19-41 [facility] Comment on above: Performed By: #### M 100.2200 #### [facility] [address] [place], [address] MCH (RBC) [Entitic mass] 32.5 pg High 27.0-32.0 [facility] Comment on above: Performed By: #### M 100.2200 #### [facility] [address] [place], [address] MCHC (RBC) [Mass/Vol] 31.6 g/dL Low 32-36 [facility] Comment on above: Performed By: #### M 100.2200 #### [facility] [address] [place], [address] MCV (RBC) [Entitic vol] 102.9 fL High 81-99 [facility] Comment on above: Performed By: #### M 100.2200 #### [facility] [address] [place], [address] Monocytes/100 WBC (Bld) 7.8 % Normal 0-10 [facility] Comment on above: Performed By: #### M 100.2200 #### [facility] [address] [place], [address] Neutrophils/100 WBC (Bld) 78.0 % High 47-70 [facility] Comment on above: Performed By: #### M 100.2200 #### [facility] [address] [place], [address] Nucleated RBC (Bld) [#/Vol] 0 10*3/uL Normal 0-5 [facility] Comment on above: Performed By: #### M 100.2200 #### [facility] [address] [place], [address] Platelet mean volume (Bld) [Entitic vol] 13.1 fL High 6.2-12.0 [facility] Comment on above: Performed By: #### M 100.2200 #### [facility] [address] [place], [address] Platelets (Bld) [#/Vol] 215 10*3/uL Normal 150-450 [facility] Comment on above: Performed By: #### M 100.2200 #### [facility] [address] [place], [address] RBC (Bld) [#/Vol] 3.82 10*6/uL Low 4.2-5.4 [facility] Comment on above: Performed By: #### M 100.2200 #### [facility] [address] [place], [address] RDW SD 49.6 fl High 35.1-43.9 [facility] Comment on above: Performed By: #### M 100.2200 #### [facility] [address] [place], [address] WBC (Bld) [#/Vol] 12.2 10*3/uL High 4.4-11.0 [facility] Comment on above: Performed By: #### M 100.2200 #### [facility] [address] [place], [address] CRPon 12-12-2023 C-REACTIVE PROT 40.10 mg/L High 0.0-3.0 [facility] Comment on above: Result Comment: C-Re active Protein (CRP) provides useful information for the diagnosis, therapy and monitoring of inflammatory processes and associated diseases. For the evaluation of Relative Risk for Cardiovascular Disease, a High Sensitivity CRP (HSCRP) should be ordered. Performed By: #### L 501.6710, L101.9900, L500.4050, L506.1000, L505.7010, L506.0400, L3100.5475, L100.0100, L501.83869, L4600.0100, L501.9520 ####[facility] [address] [place], [address] Comprehensive Metabolic Prof ilon 12-12-2023 Albumin [Mass/Vol] 3.8 g/dL Normal 3.2-5.0 [facility] Comment on above: Performed By: #### L 501.6710, L101.9900, L500.4050, L506.1000, L505.7010, L506.0400, L3100.5475, L100.0100, L501.71358, L4600.0100, L501.9520 ####[facility] [address] [place], [address] Albumin/Globulin [Mass ratio] 0.9 {ratio} Normal 0.9-2.4 [facility] Comment on above: Performed By: #### L 501.6710, L101.9900, L500.4050, L506.1000, L505.7010, L506.0400, L3100.5475, L100.0100, L501.67169, L4600.0100, L501.9520 ####[facility] [address] [place], [address] ALK P 90 U/L Normal 45-117 [facility] Comment on above: Performed By: #### L 501.6710, L101.9900, L500.4050, L506.1000, L505.7010, L506.0400, L3100.5475, L100.0100, L501.10955, L4600.0100, L501.9520 ####[facility] [address] [place], [address] ALT [Catalytic activity/Vol] 22 U/L Normal 13-56 [facility] Comment on above: Performed By: #### L 501.6710, L101.9900, L500.4050, L506.1000, L505.7010, L506.0400, L3100.5475, L100.0100, L501.78524, L4600.0100, L501.9520 ####[facility] [address] [place], [address] AST [Catalytic activity/Vol] 21 U/L Normal 15-37 [facility] Comment on above: Performed By: #### L 501.6710, L101.9900, L500.4050, L506.1000, L505.7010, L506.0400, L3100.5475, L100.0100, L501.45457, L4600.0100, L501.9520 ####[facility] [address] [place], [place], [phone] Bilirubin [Mass/Vol] 0.90 mg/dL Normal 0.20-1.00 [facility] Comment on above: Result Comment: For patients on eltrombopag therapy, use of Dimension [place] TBIL is not recommended. Performed By: #### L 501.6710, L101.9900, L500.4050, L506.1000, L505.7010, L506.0400, L3100.5475, L100.0100, L501.32868, L4600.0100, L501.9520 ####[facility] [address] [place], [place], [phone] BUN/CRE 12.5 RATIO Normal 10-20 [facility] Comment on above: Performed By: #### L 501.6710, L101.9900, L500.4050, L506.1000, L505.7010, L506.0400, L3100.5475, L100.0100, L501.66929, L4600.0100, L501.9520 ####[facility] [address] [place], [place], [phone] CA,Total 9.1 mg/dL Normal 8.5-10.1 [facility] Comment on above: Performed By: #### L 501.6710, L101.9900, L500.4050, L506.1000, L505.7010, L506.0400, L3100.5475, L100.0100, L501.16070, L4600.0100, L501.9520 ####[facility] [address] [place], [address] Chloride [Moles/Vol] 103 mmol/L Normal 98-107 [facility] Comment on above: Performed By: #### L 501.6710, L101.9900, L500.4050, L506.1000, L505.7010, L506.0400, L3100.5475, L100.0100, L501.26730, L4600.0100, L501.9520 ####[facility] [address] [place], [place], [phone] CO2 [Moles/Vol] 30.0 mmol/L Normal 21.0-32.0 [facility] Comment on above: Performed By: #### L 501.6710, L101.9900, L500.4050, L506.1000, L505.7010, L506.0400, L3100.5475, L100.0100, L501.13418, L4600.0100, L501.9520 ####[facility] [address] [place], [place], [phone](917) Creatinine [Mass/Vol] 0.96 mg/dL Normal 0.55-1.02 [facility] Comment on above: Result Comment: The validity of the calculated GFR GFRAA in patients over 70 years has not been determined. Clinical correlation is essential. Performed By: #### L 501.6710, L101.9900, L500.4050, L506.1000, L505.7010, L506.0400, L3100.5475, L100.0100, L501.32652, L4600.0100, L501.9520 ####[facility] [address] [place], [place], [phone] EST GFR - AA 72 mL/min Normal >60 [facility] Comment on above: Result Comment: Afri can Icelandic GFR Calc Performed By: #### L 501.6710, L101.9900, L500.4050, L506.1000, L505.7010, L506.0400, L3100.5475, L100.0100, L501.24067, L4600.0100, L501.9520 ####[facility] [address] [place], [place], [phone] GAP 7 Normal 5-15 [facility] Comment on above: Performed By: #### L 501.6710, L101.9900, L500.4050, L506.1000, L505.7010, L506.0400, L3100.5475, L100.0100, L501.50103, L4600.0100, L501.9520 ####[facility] [address] [place], [place], [phone] GFR/1.73 sq M.predicted among non-blacks MDRD (S/P/Bld) [Vol rate/Area] 60 mL/min/{1.73_m2} Normal >60 [facility] Comment on above: Result Comment: Non- GFR Calc Performed By: #### L 501.6710, L101.9900, L500.4050, L506.1000, L505.7010, L506.0400, L3100.5475, L100.0100, L501.54639, L4600.0100, L501.9520 ####[facility] [address] [place], [place], [phone] Globulin (S) [Mass/Vol] 4.2 g/dL Normal 2.2-4.2 [facility] Comment on above: Performed By: #### L 501.6710, L101.9900, L500.4050, L506.1000, L505.7010, L506.0400, L3100.5475, L100.0100, L501.01776, L4600.0100, L501.9520 ####[facility] [address] [place], [address] Glucose [Mass/Vol] 99 mg/dL Normal 74-106 [facility] Comment on above: Performed By: #### L 501.6710, L101.9900, L500.4050, L506.1000, L505.7010, L506.0400, L3100.5475, L100.0100, L501.91721, L4600.0100, L501.9520 ####[facility] [address] [place], [address] Potassium [Moles/Vol] 3.6 mmol/L Normal 3.5-5.1 [facility] Comment on above: Performed By: #### L 501.6710, L101.9900, L500.4050, L506.1000, L505.7010, L506.0400, L3100.5475, L100.0100, L501.89807, L4600.0100, L501.9520 ####[facility] [address] [place], [address] Sodium [Moles/Vol] 140 mmol/L Normal 136-145 [facility] Comment on above: Performed By: #### L 501.6710, L101.9900, L500.4050, L506.1000, L505.7010, L506.0400, L3100.5475, L100.0100, L501.47481, L4600.0100, L501.9520 ####[facility] [address] [place], [address] T PROT 8.0 g/dL Normal 6.4-8.2 [facility] Comment on above: Performed By: #### L 501.6710, L101.9900, L500.4050, L506.1000, L505.7010, L506.0400, L3100.5475, L100.0100, L501.63224, L4600.0100, L501.9520 ####[facility] [address] [place], [place], [phone] Urea nitrogen [Mass/Vol] 12 mg/dL Normal 7-18 [facility] Comment on above: Performed By: #### L 501.6710, L101.9900, L500.4050, L506.1000, L505.7010, L506.0400, L3100.5475, L100.0100, L501.45509, L4600.0100, L501.9520 ####[facility] [address] [place], [address] Erythrocyte Sed Rateon 12-11 SED RATE 12 mm/hr Normal 0-30 [facility] Comment on above: Performed By: #### M 100.2200 #### [facility] [address] [place], [place], [phone] Free T3on 12-12-2023 Free T3 [Mass/Vol] 2.2 pg/mL Normal 2.18-3.98 [facility] Comment on above: Performed By: #### L 501.6710, L101.9900, L500.4050, L506.1000, L505.7010, L506.0400, L3100.5475, L100.0100, L501.46166, L4600.0100, L501.9520 ####[facility] [address] [place], [place], [phone] Rheumatoid Factoron 12-12-19 24 RHEUMATOID FAC < 10.0 Normal <15 [facility] Comment on above: Performed By: #### L 501.6710, L101.9900, L500.4050, L506.1000, L505.7010, L506.0400, L3100.5475, L100.0100, L501.59354, L4600.0100, L501.9520 ####[facility] [address] [place], [place], [phone] T4 Free Directon 12-12-2023 T4 FREE DIRECT 1.32 ng/dL Normal 0.76-1.46 [facility] Comment on above: Performed By: #### L 501.6710, L101.9900, L500.4050, L506.1000, L505.7010, L506.0400, L3100.5475, L100.0100, L501.66306, L4600.0100, L501.9520 ####[facility] [address] [facility] [place], [place], [phone] Thyroid Stim Hormone (TSH)on 12-12-2023 TSH 1.710 uIU/mL Normal 0.358-3.740 [facility] Comment on above: Performed By: #### L 501.6710, L101.9900, L500.4050, L506.1000, L505.7010, L506.0400, L3100.5475, L100.0100, L501.96300, L4600.0100, L501.9520 ####[facility] [address] [facility] [facility] [place], [place], [phone] Vitamin D,25 Hydroxyon 12-11 Vitamin D 25-OH 29.4 ng/mL Normal [facility] Comment on above: Result Comment: Ana min D 25(OH) Status Range Deficiency <20 ng/mL (50nmol/L) Insufficiency 20 - 30 ng/mL (50 - 75 nmol/L) Sufficiency 30 - 100 ng/mL (75 - 250 nmol/L) Toxicity >100 ng/mL (>250 nmol/L) Performed By: #### L 501.6710, L101.9900, L500.4050, L506.1000, L505.7010, L506.0400, L3100.5475, L100.0100, L501.79926, L4600.0100, L501.9520 ####[facility] [address] [place], [address] Urine Cultureon 10-12-2023 [facility] Proteus mirabilis [place] Count 50,000-80,000 Proteus mirabilis: REACTION Ampicillin Islt BENJAMIN <=2 S Ampicillin+Sulbac Islt BENJAMIN <=2 S ceFAZolin Islt BENJAMIN <=4 S Cefepime Islt BENJAMIN <=0.12 S cefTRIAXone Islt BENJAMIN <=0.25 S Ciprofloxacin Islt BENJAMIN <=0.25 S Ertapenem Islt BENJAMIN <=0.12 S Gentamicin Islt BENJAMIN <=1 S levoFLOXacin Islt BENJAMIN <=0.12 S Nitrofurantoin Islt BENJAMIN 128 R Pip+Tazo Islt BENJAMIN <=4 S Tobramycin Islt BENJAMIN <=1 S TMP SMX Islt BENJAMIN <=20 S Normal [facility] Comment on above: Performed By: #### L 100.0100, L500.4050, M100.2200 #### [facility] [address] [place], [address] CBC W/Diff, Automatedon 09-21 Absolute Lymph 2.05 X10 3/uL Normal 0.83-4.51 [facility] Comment on above: Performed By: #### L 100.0100, L500.4050, M100.2200 #### [facility] [address] [place], [address] Absolute Neut 5.1 X10 3/uL Normal 2.0-7.7 [facility] Comment on above: Performed By: #### L 100.0100, L500.4050, M100.2200 #### [facility] [address] [place], [address] Basophils/100 WBC (Bld) 0.9 % Normal 0-1 [facility] Comment on above: Performed By: #### L 100.0100, L500.4050, M100.2200 #### [facility] [address] [place], [address] Eosinophils/100 WBC (Bld) 5.5 % High 0-5 [facility] Comment on above: Performed By: #### L 100.0100, L500.4050, M100.2200 #### [facility] [address] [place], [address] Erythrocyte distribution width (RBC) [Ratio] 13.1 % Normal 11.6-14.6 [facility] Comment on above: Performed By: #### L 100.0100, L500.4050, M100.2200 #### [facility] [address] [place], [address] Hematocrit (Bld) [Volume fraction] 38.1 % Normal 37-47 [facility] Comment on above: Performed By: #### L 100.0100, L500.4050, M100.2200 #### [facility] [address] [place], [address] Hemoglobin (Bld) [Mass/Vol] 12.2 g/dL Normal 12.0-15.0 [facility] Comment on above: Performed By: #### L 100.0100, L500.4050, M100.2200 #### [facility] [address] [place], [address] IG% 0.500 Normal 0.0-0.9 [facility] Comment on above: Result Comment: IG% - Immature Granulocytes (promyelocytes, myelocytes and metamyelocytes) > 1% indicates that a LEFT SHIFT is Present. Performed By: #### L 100.0100, L500.4050, M100.2200 #### [facility] [address] [place], [address] Lymphocytes/100 WBC (Bld) 24.2 % Normal 19-41 [facility] Comment on above: Performed By: #### L 100.0100, L500.4050, M100.2200 #### [facility] [address] [place], [address] MCH (RBC) [Entitic mass] 32.3 pg High 27.0-32.0 [facility] Comment on above: Performed By: #### L 100.0100, L500.4050, M100.2200 #### [facility] [address] [place], [address] MCHC (RBC) [Mass/Vol] 32.0 g/dL Normal 32-36 [facility] Comment on above: Performed By: #### L 100.0100, L500.4050, M100.2200 #### [facility] [address] [place], [address] MCV (RBC) [Entitic vol] 100.8 fL High 81-99 [facility] Comment on above: Performed By: #### L 100.0100, L500.4050, M100.2200 #### [facility] [address] [place], [address] Monocytes/100 WBC (Bld) 8.4 % Normal 0-10 [facility] Comment on above: Performed By: #### L 100.0100, L500.4050, M100.2200 #### [facility] [address] [place], [address] Neutrophils/100 WBC (Bld) 60.5 % Normal 47-70 [facility] Comment on above: Performed By: #### L 100.0100, L500.4050, M100.2200 #### [facility] [address] [place], [address] Nucleated RBC (Bld) [#/Vol] 0 10*3/uL Normal 0-5 [facility] Comment on above: Performed By: #### L 100.0100, L500.4050, M100.2200 #### [facility] [address] [place], [address] Platelet mean volume (Bld) [Entitic vol] 12.7 fL High 6.2-12.0 [facility] Comment on above: Performed By: #### L 100.0100, L500.4050, M100.2200 #### [facility] [address] [place], [address] Platelets (Bld) [#/Vol] 246 10*3/uL Normal 150-450 [facility] Comment on above: Performed By: #### L 100.0100, L500.4050, M100.2200 #### [facility] [address] [place], [address] RBC (Bld) [#/Vol] 3.78 10*6/uL Low 4.2-5.4 [facility] Comment on above: Performed By: #### L 100.0100, L500.4050, M100.2200 #### [facility] [address] [place], [address] RDW SD 47.9 fl High 35.1-43.9 [facility] Comment on above: Performed By: #### L 100.0100, L500.4050, M100.2200 #### [facility] [address] [place], [address] WBC (Bld) [#/Vol] 8.5 10*3/uL Normal 4.4-11.0 [facility] Comment on above: Performed By: #### L 100.0100, L500.4050, M100.2200 #### [facility] [address] [place], [address] Comprehensive Metabolic Prof [facility] 10-10-2023 Albumin [Mass/Vol] 3.5 g/dL Normal 3.2-5.0 [facility] Comment on above: Performed By: #### L 100.0100, L500.4050, M100.2200 #### [facility] [address] [place], [address] Albumin/Globulin [Mass ratio] 0.9 {ratio} Normal 0.9-2.4 [facility] Comment on above: Performed By: #### L 100.0100, L500.4050, M100.2200 #### [facility] [address] [place], [address] ALK P 83 U/L Normal 45-117 [facility] Comment on above: Performed By: #### L 100.0100, L500.4050, M100.2200 #### [facility] [address] [place], [address] ALT [Catalytic activity/Vol] 21 U/L Normal 13-56 [facility] Comment on above: Performed By: #### L 100.0100, L500.4050, M100.2200 #### [facility] [address] [place], [address] AST [Catalytic activity/Vol] 25 U/L Normal 15-37 [facility] Comment on above: Performed By: #### L 100.0100, L500.4050, M100.2200 #### [facility] [address] [place], [address] Bilirubin [Mass/Vol] 0.70 mg/dL Normal 0.20-1.00 [facility] Comment on above: Result Comment: For patients on eltrombopag therapy, use of Dimension [place] TBIL is not recommended. Performed By: #### L 100.0100, L500.4050, M100.2200 #### [facility] [address] [place], [address] BUN/CRE 14.7 RATIO Normal 10-20 [facility] Comment on above: Performed By: #### L 100.0100, L500.4050, M100.2200 #### [facility] [address] [place], [address] CA,Total 8.7 mg/dL Normal 8.5-10.1 [facility] Comment on above: Performed By: #### L 100.0100, L500.4050, M100.2200 #### [facility] [address] [place], [address] Chloride [Moles/Vol] 101 mmol/L Normal 98-107 [facility] Comment on above: Performed By: #### L 100.0100, L500.4050, M100.2200 #### [facility] [address] [place], [address] CO2 [Moles/Vol] 27.0 mmol/L Normal 21.0-32.0 [facility] Comment on above: Performed By: #### L 100.0100, L500.4050, M100.2200 #### [facility] [address] [place], [address] Creatinine [Mass/Vol] 0.88 mg/dL Normal 0.55-1.02 [facility] Comment on above: Result Comment: The validity of the calculated GFR GFRAA in patients over 70 years has not been determined. Clinical correlation is essential. Performed By: #### L 100.0100, L500.4050, M100.2200 #### [facility] [address] [place], [address] EST GFR - AA 80 mL/min Normal >60 [facility] Comment on above: Result Comment: Afri can Icelandic GFR Calc Performed By: #### L 100.0100, L500.4050, M100.2200 #### [facility] [address] [place], [address] GAP 8 Normal 5-15 [facility] Comment on above: Performed By: #### L 100.0100, L500.4050, M100.2200 #### [facility] [address] [place], [address] GFR/1.73 sq M.predicted among non-blacks MDRD (S/P/Bld) [Vol rate/Area] 66 mL/min/{1.73_m2} Normal >60 [facility] Comment on above: Result Comment: Non- GFR Calc Performed By: #### L 100.0100, L500.4050, M100.2200 #### [facility] [address] [place], [address] Globulin (S) [Mass/Vol] 3.9 g/dL Normal 2.2-4.2 [facility] Comment on above: Performed By: #### L 100.0100, L500.4050, M100.2200 #### [facility] [address] [place], [address] Glucose [Mass/Vol] 96 mg/dL Normal 74-106 [facility] Comment on above: Performed By: #### L 100.0100, L500.4050, M100.2200 #### [facility] [address] [place], [address] Potassium [Moles/Vol] 3.8 mmol/L Normal 3.5-5.1 [facility] Comment on above: Performed By: #### L 100.0100, L500.4050, M100.2200 #### [facility] [address] [place], [address] Sodium [Moles/Vol] 136 mmol/L Normal 136-145 [facility] Comment on above: Performed By: #### L 100.0100, L500.4050, M100.2200 #### [facility] [address] [place], [address] T PROT 7.4 g/dL Normal 6.4-8.2 [facility] Comment on above: Performed By: #### L 100.0100, L500.4050, M100.2200 #### [facility] [address] [place], [address] Urea nitrogen [Mass/Vol] 13 mg/dL Normal 7-18 [facility] Comment on above: Performed By: #### L 100.0100, L500.4050, M100.2200 #### [facility] [address] [place], [address] Absolute lymphocyte countOrd ered By: Vernon Osman on 05-21-2023 Lymphocytes Auto (Unsp spec) [#/Vol] 1.08 10*3/uL 0.83-4.51 [facility] Automated lymphocyte count a s percentage of total leukocytesOrdered By: Vernon Osman on 05-21-2023 Lymphocytes/100 WBC Auto (Unsp spec) 8.5 % 19-41 [facility] Basophil percentageOrdered B y: Vernon Osman on 05-21-2023 Basophils/100 WBC (Bld) 0.6 % 0-1 [facility] Chloride [Moles/Vol] 112 mmol/L 98-107 [facility] Eosinophils/100 WBC (Bld) 2.0 % 0-5 [facility] Glucose [Mass/Vol] 136 mg/dL 74-106 [facility] Comment on above: Fasting Glucose resu lt greater than or equal to 126 mg/dL suggests DIABETES MELLITUS per A.D.A. criteria. Hemoglobin (Bld) [Mass/Vol] 10.3 g/dL 12.0-15.0 [facility] Monocytes/100 WBC (Bld) 9.4 % 0-10 [facility] Neutrophils (Bld) [#/Vol] 10.0 10*3/uL 2.0-7.7 [facility] Neutrophils/100 WBC (Bld) 79.0 % 47-70 [facility] Potassium [Moles/Vol] 3.4 mmol/L 3.5-5.1 [facility] Sodium [Moles/Vol] 142 mmol/L 136-145 [facility] WBC (Bld) [#/Vol] 12.7 10*3/uL 4.4-11.0 [facility] Determination of erythrocyte mean corpuscular volume (MCV)Ordered By: Vernon Osman on 05-21-2023 MCV (RBC) [Entitic vol] 99.1 fL 81-99 [facility] Erythrocyte distribution wid th ratioOrdered By: Vernon Osman on 05-21-2023 Erythrocyte distribution width (RBC) [Ratio] 15.1 % 11.6-14.6 [facility] Erythrocyte distribution wid th standard deviationOrdered By: Vernon Osman on 05-21-2023 Erythrocyte distribution width (RBC) [Entitic vol] 54.6 fL 35.1-43.9 [facility] Hematocrit Auto (Bld) [Volum e fraction]Ordered By: Vernon Osman on 05-21-2023 Hematocrit (Bld) [Volume fraction] 32.2 % 37-47 [facility] Immature granulocytes/100 WB C Auto (Bld)Ordered By: Vernon Osman on 05-21-2023 Immature granulocytes/100 WBC (Bld) 0.500 % 0.0-0.9 [facility] Comment on above: IG% - Immature Granu locytes (promyelocytes, myelocytes and metamyelocytes) > 1% indicates that a LEFT SHIFT is Present. Laboratory - Chemistry and C hemistry - challengeOrdered By: Vernon Osman on 05-21-2023 CO2 [Moles/Vol] 25.0 mmol/L 21.0-32.0 [facility] Urea nitrogen/Creatinine [Mass ratio] 9.1 mg/mg 10-20 [facility] Laboratory - Hematology and Cell countsOrdered By: Vernon Osman on 05-21-2023 MCH (RBC) [Entitic mass] 31.7 pg 27.0-32.0 [facility] MCHC (RBC) [Mass/Vol] 32.0 g/dL 32-36 [facility] Nucleated RBC/100 WBC (Bld) [Ratio] 0 % 0-5 [facility] Platelets (Bld) [#/Vol] 218 10*3/uL 150-450 [facility] No Panel InformationOrdered By: Vernon Osman on 05-21-2023 Estimated Creatinine Clearance Calc 61.89 ml/min [facility] Estimated GFR (MDRD) Amer 94 mL/min >60 [facility] Comment on above: GFR Calc Estimated GFR (MDRD) Non-Af Amer 78 mL/min >60 [facility] Comment on above: Non- GFR Calc Platelet mean volume [place]-[facility] ker (Bld) [Entitic vol]Ordered By: Vernon Osman on 05-21-2023 Platelet mean volume (Bld) [Entitic vol] 11.8 fL 6.2-12.0 [facility] RBC Auto (Bld) [#/Vol]Ordere d By: Vernon Osman on 05-21-2023 RBC (Bld) [#/Vol] 3.25 10*6/uL 4.2-5.4 [facility] Serum or plasma calcium rajni urement (mass/volume)Ordered By: Vernon Osman on 05-21-2023 Calcium [Mass/Vol] 8.0 mg/dL 8.5-10.1 [facility] Serum or plasma creatinine m easurement (mass/volume)Ordered By: Vernon Osman on 05-21-2023 Creatinine [Mass/Vol] 0.77 mg/dL 0.55-1.02 [facility] Comment on above: The validity of the calculated GFR & GFRAA in patients over 70 years has not been determined. Clinical correlation is essential. Serum or plasma urea nitroge n measurement (mass/volume)Ordered By: Vernon Osman on 05-21-2023 Urea nitrogen [Mass/Vol] 7 mg/dL 7-18 [facility] Thin prep Papanicolaou smear with manual screeningOrdered By: Vernon Osman on 05-21-2023 Thin prep Papanicolaou smear with manual screening 5 5-15 [facility] Basophil percentageOrdered B y: Vernon Osman on 05-20-2023 Basophil percentage 3.2 mg/dL 2.5-4.9 [facility] Blood manual differential co mment interpretation (narrative result)Ordered By: Vernon Osman on 05-20-2023 Manual differential comment Donnie (Bld) [Interp] SCANNED [facility] Comment on above: MONOCYTOSIS PRESENT Laboratory - Chemistry and C hemistry - challengeOrdered By: Vernon Osman on 05-20-2023 Magnesium [Mass/Vol] 2.2 mg/dL 1.6-2.6 [facility] Review by pathologistOrdered By: Vernon Osman on 05-20-2023 Pathologist review Donnie (Unsp spec) [Interp] Reviewed [facility] Comment on above: Previous reported re sult: Nohelia mcdowell Edited by: RGOASHOK on 05/20/23:1306Neutrophilic leukocytosis.Macrocytic anemia.Clinical correlation necessary.Greg Guerin M.D. 05/20/23 AMENDED REPORT 05/20/23 1306 PATH REV previously reported as: Nohelia mcdowell Basophil percentageOrdered B y: Aggie Bolton on 05-19-2023 Bilirubin [Mass/Vol] 0.70 mg/dL 0.20-1.00 [facility] Comment on above: For patients on eltr ombopag therapy, use of Dimension [place] TBIL is not recommended. Protein [Mass/Vol] 6.4 g/dL 6.4-8.2 [facility] Basophil percentageOrdered B y: Jorge Cardona on 05-19-2023 Basophil percentage < 10.0 ug/mL 10.0-30.0 [facility] Culture, urineOrdered By: Sonja Cardona on 05-19-2023 Bacteria identified Cx Nom (U) Presumptive E. coli [facility] Laboratory - Chemistry and C hemistry - challengeOrdered By: Aggie Bolton on 05-19-2023 Albumin/Globulin [Mass ratio] 0.7 {ratio} 0.9-2.4 [facility] ALP [Catalytic activity/Vol] 94 U/L 45-117 [facility] ALT [Catalytic activity/Vol] 15 U/L 13-56 [facility] Globulin (S) [Mass/Vol] 3.8 g/dL 2.2-4.2 [facility] No Panel InformationOrdered By: Jorge Cardona on 05-19-2023 Ethyl Alcohol Level < 3.0 mg/dL [facility] Comment on above: The serum:whole bloo d ethanol ratio is approximately 1.14and varies slightly with hematocrit. Medical Alcohol reference interval and critical value innon-tolerant individuals; 50 - 100 Impairment 100 Intoxication 100 - 250 Severe Poisoning 250 - 400 Deep/possible fatal coma No Panel InformationOrdered By: Aggie Bolton on 05-19-2023 Streptococcus pneumoniae Antigen (M [facility] Thin prep Papanicolaou smear with manual screeningOrdered By: [facility] Che on 05-19-2023 Thin prep Papanicolaou smear with manual screening 2.6 g/dL 3.2-5.0 [facility] Thin prep Papanicolaou smear with manual screening 19 U/L 15-37 [facility] Urine Legionella pneumophila antigen detectionOrdered By: [facility] Che on 05-19-2023 L. pneumophila Ag Ql (U) [facility] Absolute lymphocyte countOrd ered By: Jorge Cardona on 05-18-2023 Lymphocytes Auto (Unsp spec) [#/Vol] 0.96 10*3/uL 0.83-4.51 [facility] Activated partial thrombopla stin time (aPTT) in platelet poor plasma by coagulation aOrdered By: Jorge Cardona on 05-18-2023 aPTT Coag (PPP) [Time] 30.3 s 24.1-36.2 [facility] Automated lymphocyte count a s percentage of total leukocytesOrdered By: Jorge Cardona on 05-18-2023 Lymphocytes/100 WBC Auto (Unsp spec) 6.3 % 19-41 [facility] Basophil percentageOrdered B y: Jorge Cardona on 05-18-2023 Basophil percentage >100 SEEN /hpf 0-5 [facility] Basophils/100 WBC (Bld) 0.5 % 0-1 [facility] Bilirubin [Mass/Vol] 1.40 mg/dL 0.20-1.00 [facility] Comment on above: For patients on eltr ombopag therapy, use of Dimension [place] TBIL is not recommended. Chloride [Moles/Vol] 109 mmol/L 98-107 [facility] Eosinophils/100 WBC (Bld) 0.3 % 0-5 [facility] Glucose [Mass/Vol] 134 mg/dL 74-106 [facility] Comment on above: Fasting Glucose resu lt greater than or equal to 126 mg/dL suggests DIABETES MELLITUS per A.D.A. criteria. Hemoglobin (Bld) [Mass/Vol] 11.9 g/dL 12.0-15.0 [facility] Lactate [Moles/Vol] 1.7 mmol/L 0.4-2.0 [facility] Monocytes/100 WBC (Bld) 2.4 % 0-10 [facility] Neutrophils (Bld) [#/Vol] 13.7 10*3/uL 2.0-7.7 [facility] Neutrophils/100 WBC (Bld) 89.8 % 47-70 [facility] Potassium [Moles/Vol] 3.8 mmol/L 3.5-5.1 [facility] Comment on above: Slight Hemolysis, Re sult may be falsely increased. Protein [Mass/Vol] 7.5 g/dL 6.4-8.2 [facility] Sodium [Moles/Vol] 139 mmol/L 136-145 [facility] WBC (Bld) [#/Vol] 15.2 10*3/uL 4.4-11.0 [facility] Bilirubin Test strip Ql (U)O rdered By: Jorge Cardona on 05-18-2023 Bilirubin Ql (U) Negative Negative [facility] Determination of erythrocyte mean corpuscular volume (MCV)Ordered By: Jorge Cardona on 05-18-2023 MCV (RBC) [Entitic vol] 97.9 fL 81-99 [facility] Erythrocyte distribution wid th ratioOrdered By: Jorge Cardona on 05-18-2023 Erythrocyte distribution width (RBC) [Ratio] 15.1 % 11.6-14.6 [facility] Erythrocyte distribution wid th standard deviationOrdered By: Jorgemel Cardona on 05-18-2023 Erythrocyte distribution width (RBC) [Entitic vol] 54.4 fL 35.1-43.9 [facility] Hematocrit Auto (Bld) [Volum e fraction]Ordered By: Jorge Cardona on 05-18-2023 Hematocrit (Bld) [Volume fraction] 36.7 % 37-47 [facility] Immature granulocytes/100 WB C Auto (Bld)Ordered By: Jorge Cardona on 05-18-2023 Immature granulocytes/100 WBC (Bld) 0.700 % 0.0-0.9 [facility] Comment on above: IG% - Immature Granu locytes (promyelocytes, myelocytes and metamyelocytes) > 1% indicates that a LEFT SHIFT is Present. International normalized rat io (INR) calculationOrdered By: Jorge Cardona on 05-18-2023 INR Coag (PPP) [Relative time] 1.3 {INR} [facility] Ketones Test strip Ql (U)Ord ered By: Jorge Cardona on 05-18-2023 Ketones Ql (U) 5 mg/dl Negative [facility] Laboratory - Chemistry and C hemistry - challengeOrdered By: Jorge Cardona on 05-18-2023 Albumin/Globulin [Mass ratio] 0.7 {ratio} 0.9-2.4 [facility] ALP [Catalytic activity/Vol] 116 U/L 45-117 [facility] ALT [Catalytic activity/Vol] 17 U/L 13-56 [facility] CO2 [Moles/Vol] 24.0 mmol/L 21.0-32.0 [facility] Globulin (S) [Mass/Vol] 4.3 g/dL 2.2-4.2 [facility] Urea nitrogen/Creatinine [Mass ratio] 18.9 mg/mg 10-20 [facility] Laboratory - CoagulationOrde red By: Jorgemel Cardona on 05-18-2023 PT Coag (PPP) [Time] 16.0 s 11.7-14.9 [facility] Laboratory - Drug toxicology Ordered By: Jorgemel Cardona on 05-18-2023 Amphetamines Ql (U) Negative <1000 ng/mL [facility] Benzodiazepines Ql (U) Negative < 200 ng/mL [facility] Cannabinoids Screen Ql (U) Negative < 50 ng/mL [facility] Cocaine Ql (U) Negative < 300 ng/mL [facility] Opiates Ql (U) Positive < 300 ng/mL [facility] Laboratory - Hematology and Cell countsOrdered By: Jorgemel Cardona on 05-18-2023 MCH (RBC) [Entitic mass] 31.7 pg 27.0-32.0 [facility] MCHC (RBC) [Mass/Vol] 32.4 g/dL 32-36 [facility] Nucleated RBC/100 WBC (Bld) [Ratio] 0 % 0-5 [facility] Platelets (Bld) [#/Vol] 199 10*3/uL 150-450 [facility] Laboratory - Microbiology an d Antimicrobial susceptibilityOrdered By: Jorge Cardona on 05-18-2023 Bacteria identified Cx Nom (Bld) Escherichia coli [facility] SARS-CoV-2 (COVID-19) RNA LEONA+probe Ql (Unsp spec) [facility] Bacteria identified Cx Nom (Bld) No growth in 5 days. [facility] SARS-CoV-2 (COVID-19) RNA LEONA+probe Ql (Unsp spec) [facility] Mucus LM Ql (Urine sed)Order ed By: Jorge Cardona on 05-18-2023 Mucus Ql (Urine sed) 0 SEEN /hpf [facility] Nitrite Test strip Ql (U)Ord ered By: Jorge Cardona on 05-18-2023 Nitrite Ql (U) Positive Negative [facility] No Panel InformationOrdered By: Jorge Cardona on 05-18-2023 Estimated Creatinine Clearance Calc 40.12 ml/min [facility] Estimated GFR (MDRD) Amer 55 mL/min >60 [facility] Comment on above: GFR Calc Estimated GFR (MDRD) Non-Af Amer 46 mL/min >60 [facility] Comment on above: Non- GFR Calc MDMA (Ecstasy) Screen Negative < 500 ng/mL [facility] Urine Barbiturates Screen Negative < 200 ng/mL [facility] Urine Drug Screen Comment [facility] Comment on above: CONFIRMATORY TESTING FOR ALL POSITIVE URINE DRUG SCREENRESULTS WILL ONLY BE SENT OUT UPON PHYSICIAN ORDER. VISTA Urine Drug Screen methods provide only preliminaryanalytical test results. A more specific alternate chemicalmethod must be used in order to obtain a confirmedanalytical result. Gas chromatography/mass spectrometery(GC/MS) is the preferred confirmatory method. Clinicalconsideration and professional judgement should be appliedto any drug of abuse test result, particularly whenpreliminary positive results are used. URINE TCA TESTING MUST BE ORDERED SEPARATELY. USE TESTMNEMONIC: [facility] Urine Methadone Screen Negative < 300 ng/mL [facility] Urine RBC 10-25 SEEN /hpf 0-5 [facility] Platelet mean volume [place]-Ec ker (Bld) [Entitic vol]Ordered By: Jorge Cardona on 05-18-2023 Platelet mean volume (Bld) [Entitic vol] 12.5 fL 6.2-12.0 [facility] Protein Test strip Ql (U)Ord ered By: Jorge Cardona on 05-18-2023 Protein Ql (U) 100 mg/dl Negative [facility] RBC Auto (Bld) [#/Vol]Ordere d By: Jorge Cardona on 05-18-2023 RBC (Bld) [#/Vol] 3.75 10*6/uL 4.2-5.4 [facility] Serum or plasma calcium rajni urement (mass/volume)Ordered By: Jorge Cardona on 05-18-2023 Calcium [Mass/Vol] 8.6 mg/dL 8.5-10.1 [facility] Serum or plasma creatinine m easurement (mass/volume)Ordered By: Jorge Cardona on 05-18-2023 Creatinine [Mass/Vol] 1.22 mg/dL 0.55-1.02 [facility] Comment on above: The validity of the calculated GFR & GFRAA in patients over 70 years has not been determined. Clinical correlation is essential. Serum or plasma urea nitroge n measurement (mass/volume)Ordered By: Jorge Cardona on 05-18-2023 Urea nitrogen [Mass/Vol] 23 mg/dL 7-18 [facility] Squamous epithelial cells de tection in urine sediment by light microscopyOrdered By: Jorge Cardona on 05-18-2023 Epithelial cells.squamous LM Ql (Urine sed) 0 SEEN /hpf 5-10 [facility] Thin prep Papanicolaou smear with manual screeningOrdered By: Jorge Cardona on 05-18-2023 Thin prep Papanicolaou smear with manual screening 3.2 g/dL 3.2-5.0 [facility] Thin prep Papanicolaou smear with manual screening 22 U/L 15-37 [facility] Comment on above: Slight Hemolysis, Re sult may be falsely increased. Thin prep Papanicolaou smear with manual screening 6 5-15 [facility] Urine blood detectionOrdered By: Jorge Cardona on 05-18-2023 RBC Ql (U) 50 /ul Negative [facility] Urine clarityOrdered By: Jorge Cardona on 05-18-2023 Clarity (U) Cloudy Clear [facility] Urine color determinationOrd ered By: Jorge Cardona on 05-18-2023 Color (U) Yellow Yellow [facility] Urine glucose detectionOrder ed By: Jorge Cardona on 05-18-2023 Glucose Ql (U) Normal mg/dl Normal [facility] Urine leukocyte esterase det ection by dipstickOrdered By: Jorge Cardona on 05-18-2023 Leukocyte esterase Test strip Ql (U) 500 /ul Negative [facility] Urine pHOrdered By: Jorge nguyen on 05-18-2023 pH (U) 6.0 [pH] 5.0 - 8.0 [facility] Urine phencyclidine (PCP) de tectionOrdered By: Jorge Cardona on 05-18-2023 Phencyclidine Ql (U) Negative < 25 ng/mL [facility] Urine sediment bacteria coun t by microscopy (number/high power field)Ordered By: Jorge Cardona on 05-18-2023 Bacteria LM.HPF (Urine sed) [#/Area] 0 /[HPF] None Seen [facility] Urine specific gravity measu rementOrdered By: Jorge Cardona on 05-18-2023 Specific gravity (U) [Rel density] 1.010 1.002-1.030 [facility] Urine urobilinogen measureme ntOrdered By: Jorge Cardona on 05-18-2023 Urobilinogen Ql (U) Normal mg/dl Normal [facility] Absolute lymphocyte countOrd ered By: Bandar Chanel on 11-23-2022 Lymphocytes Auto (Unsp spec) [#/Vol] 0.58 10*3/uL 0.83-4.51 [facility] Basophil percentageOrdered B y: Bandar Chanel on 11-23-2022 Basophils/100 WBC (Bld) 0.5 % 0-1 [facility] Chloride [Moles/Vol] 102 mmol/L 98-107 [facility] Eosinophils/100 WBC (Bld) 0.0 % 0-5 [facility] Glucose [Mass/Vol] 192 mg/dL 74-106 [facility] Comment on above: Fasting Glucose resu lt greater than or equal to 126 mg/dL suggests DIABETES MELLITUS per A.D.A. criteria. Neutrophils (Bld) [#/Vol] 6.0 10*3/uL 2.0-7.7 [facility] Neutrophils/100 WBC (Bld) 89.4 % 47-70 [facility] Potassium [Moles/Vol] 3.3 mmol/L 3.5-5.1 [facility] Sodium [Moles/Vol] 134 mmol/L 136-145 [facility] WBC (Bld) [#/Vol] 6.7 10*3/uL 4.4-11.0 [facility] Blood erythrocytes count (nu mber/volume)Ordered By: Bandar Chanel on 11-23-2022 RBC (Bld) [#/Vol] 4.22 10*6/uL 4.2-5.4 [facility] Blood hemoglobin measurement (mass/volume)Ordered By: Bandar Chanel on 11-23-2022 Hemoglobin (Bld) [Mass/Vol] 12.0 g/dL 12.0-15.0 [facility] Blood lymphocytes/100 leukoc ytesOrdered By: Bandar Chanel on 11-23-2022 Lymphocytes/100 WBC (Bld) 8.7 % 19-41 [facility] Blood manual differential co mment interpretation (narrative result)Ordered By: Bandar Chanel on 11-23-2022 Manual differential comment Donnie (Bld) [Interp] SCANNED [facility] Comment on above: LYMPHOPENIA PRESENT Blood monocytes/100 leukocyt esOrdered By: Bandar Chanel on 11-23-2022 Monocytes/100 WBC (Bld) 1.1 % 0-10 [facility] Blood platelet mean volumeOr dered By: Bandar Chanel on 11-23-2022 Platelet mean volume (Bld) [Entitic vol] 12.1 fL 6.2-12.0 [facility] CNPNon 11-23-2022 CNPN Telephone ([facility]) DIAMONDAIDEN ([id number]) 1945 F Date Time Provider Department 11/23/22 [facility] During your visit today, we recorded the following information about you: Wu Gallegos APRN.FELY 11/23/2022 7:32 AM Signed Please notify that covid testing negative. Continue with plan of care as discussed during visit. Christie Cruz LPN 11/23/2022 7:53 AM Signed Phone call placed brief message to contact a nurse to review results. Melissa De Paz LPN, LPN 11/23/2022 6:42 PM Signed Patient notified.Melissa Sprague LPN Allergies As of Date: 11/23/2022 Noted Allergy Reaction ANTIHISTAMINES - ALKYLAMINE 10/07/2007 5 - Intolerance Comments: wires her BENADRYL (DIPHENHYDRAMINE HCL) 10/27/2012 Comments: rapid heart beat/gets real excitable NEOSPORIN ([id number] *08/14/2006 Comments: contact dermatitis post op Date Reviewed: 11/22/2022 Reviewed by: Eliel Blount APRN.FELY - Fully Assessed Reason for Visit: Results [95] Prescriptions as of 11/23/2022 - oxyCODONE IR (ROXICODONE) 5 mg immediate release tablet Take 5-10 mg by mouth every 4 hours as needed for pain. - acetaminophen (TYLENOL) 325 mg tablet Take 3 tablets by mouth every 6 hours as needed for pain. - memantine (NAMENDA) 5 mg tablet Take 1 tablet by mouth daily at bedtime. - polyvinyl alcohol-povidone (REFRESH) 1.4-0.6 % ophthalmic solution Use 1 Drop in both eyes as needed. - clonazePAM (KLONOPIN) 1 mg tablet Take 1 mg by mouth. Take one tablet by mouth five times a day as needed - meclizine (ANTIVERT) 25 mg tab Take 25 mg by mouth three times daily as needed. - pregabalin (LYRICA) 75 mg capsule Take 75 mg by mouth twice daily. - valACYclovir (VALTREX) 1 gram Take 1,000 mg by mouth once daily. - potassium chloride (KLOR-CON) 20 mEq packet Take 40 mEq by mouth once daily. With food - Magnesium 250 mg tab Take 500 mg by mouth as directed. - polyethylene glycol 3350 (MIRALAX, GLYCOLAX) 17 gram/dose powder Take 17 g by mouth once daily. - levothyroxine (SYNTHROID) 125 mcg tablet Take 125 mcg by mouth once daily. - calcitriol (ROCALTROL) 0.5 mcg capsule Take 1 capsule by mouth once daily. - indapamide (LOZOL) 1.25 mg tablet Take 1.25 mg by mouth every morning. - pyridoxine (VITAMIN B6) 100 mg tablet Take 100 mg by mouth once daily. - Cholecalciferol, Vitamin D3, 1,000 unit tab Take 1 tablet by mouth once daily. - docusate sodium (COLACE) 100 mg ORAL Cap Take three capsules by mouth twice daily as needed. - glycerin(COLACE (GLYCERIN) 1.5 G RECT SUPP) Insert one suppository into rectum once daily Problem List As Of Date 11/23/2022 Noted Resolved Malignant melanoma of skin (HCC) [C43.9] 08/17/2004 SURGICAL SCAR AND FIBROSIS OF SKIN [L90.5] 08/14/2006 DERMATITIS NOS [L25.9] 08/14/2006 SEBORRHEIC KERATOSIS NOS [L82.1] 08/14/2006 SKIN HYPERTRO/ATROPH NEC [L91.8, L90.8] 08/14/2006 Anxiety state [F41.1] CONSTIPATION NOS [K59.00] ABDOMINAL PAIN RLQ [R10.31] NEVUS////BENIGN ELLIOTT SKIN ARM [D23.60] 12/10/2008 Other Chronic Dermatitis due to Solar Radiation*12/10/2008 SOLAR LENTIGINES///DYSCHROMIA OTHER [L81.9] 12/10/2008 H/O MELANOMA IN SITU///PERS HX MALIG SKIN MELAN*12/10/2008 Nevus, Non-Neoplastic [I78.1] 12/10/2008 Benign Neoplasm of Skin of Trunk, except Scrotu*12/10/2008 Actinic Damage///Sun-Damaged Skin [L57.8] 02/09/2009 Neoplasm of Uncertain Behavior of Skin [D48.5] 02/11/2009 Dysplastic Nevus of Trunk [D23.5] 02/11/2009 Melanocytic Nevus of Lower Extremity [D22.70] 02/11/2009 Solar Lentigines [L81.4] 02/11/2009 Xerosis Cutis [L85.3] 02/11/2009 Melanocytic Nevus of Trunk [D22.5] 11/15/2009 Hypocalcemia after resection parathyroid adenom*01/24/2010 Postsurgical hypothyroidism [E89.0] 01/24/2010 Melanocytic nevi of trunk [D22.5] 11/13/2011 Blue nevus: R lower leg just above R ankle [D23*11/13/2011 Blue nevus of R lower leg at just above R ankle*11/13/2011 Metastatic cancer to axillary lymph nodes [C77.*07/03/2012 Breast cancer [C50.919] 07/03/2012 02/11/2013 ER+ (estrogen receptor positive status) [Z17.0] 07/03/2012 Drug induced neutropenia [D70.2] 07/17/2012 10/03/2012 History of breast cancer [Z85.3] 02/11/2013 Malignant neoplasm of female breast (HCC) [C50.*02/18/2013 SCC (squamous cell carcinoma), leg [C44.721] 05/13/2013 Inflamed seborrheic keratosis [L82.0] 05/13/2013 Actinic skin damage [L57.8] 05/13/2013 Neuropathy due to chemotherapeutic drug (HCC) [*08/21/2013 Hypertrophic scar [L91.0] 10/22/2013 Hx of SCC Skin Cancer of Left Leg removed 05/15/*10/22/2013 Leg pain [M79.606] 10/26/2013 Shoulder pain [M25.519] 10/26/2013 Melanoma of upper arm (HCC) [C43.60] 08/11/2014 At risk for osteoporosis/osteopenia [Z91.89] 01/20/2015 Chronic interstitial cystitis with hematuria [N*02/10/2015 Anxiety neurosis [F41.1] 05/24/2015 (more content not included)... Normal [facility] Determination of erythrocyte mean corpuscular volume (MCV)Ordered By: Bandar Chanel on 11-23-2022 MCV (RBC) [Entitic vol] 90.0 fL 81-99 [facility] Hematocrit Auto (Bld) [Volum e fraction]Ordered By: Bandar Chanel on 11-23-2022 Hematocrit (Bld) [Volume fraction] 38.0 % 37-47 [facility] Laboratory - Chemistry and C hemistry - challengeOrdered By: Bandar Chanel on 11-23-2022 CO2 [Moles/Vol] 26.0 mmol/L 21.0-32.0 [facility] Free T4 [Mass/Vol] 1.40 ng/dL 0.76-1.46 [facility] Urea nitrogen/Creatinine [Mass ratio] 22.8 mg/mg 10-20 [facility] Laboratory - Hematology and Cell countsOrdered By: Bandar Chanel on 11-23-2022 Erythrocyte distribution width (RBC) [Entitic vol] 54.4 fL 35.1-43.9 [facility] Erythrocyte distribution width (RBC) [Ratio] 16.4 % 11.6-14.6 [facility] Immature granulocytes/100 WBC (Bld) 0.300 % 0.0-0.9 [facility] Comment on above: IG% - Immature Granu locytes (promyelocytes, myelocytes and metamyelocytes) > 1% indicates that a LEFT SHIFT is Present. MCH (RBC) [Entitic mass] 28.4 pg 27.0-32.0 [facility] Nucleated RBC/100 WBC (Bld) [Ratio] 0 % 0-5 [facility] MCHC Auto (RBC) [Mass/Vol]Or dered By: Bandar Chanel on 11-23-2022 MCHC (RBC) [Mass/Vol] 31.6 g/dL 32-36 [facility] No Panel InformationOrdered By: Bandar Chanel on 11-23-2022 Estimated Creatinine Clearance Calc 44.80 ml/min [facility] Estimated GFR (MDRD) Amer 133 mL/min >60 [facility] Comment on above: GFR Calc Estimated GFR (MDRD) Non-Af Amer 110 mL/min >60 [facility] Comment on above: Non- GFR Calc Thyroid Stimulating Hormone (TSH) 0.24 uIU/mL 0.358-3.74 [facility] Platelets bldOrdered By: Anthony Chanel on 11-23-2022 Platelets (Bld) [#/Vol] 281 10*3/uL 150-450 [facility] Serum or plasma calcium rajni urement (mass/volume)Ordered By: Bandar Chanel on 11-23-2022 Calcium [Mass/Vol] 8.1 mg/dL 8.5-10.1 [facility] Serum or plasma creatinine m easurement (mass/volume)Ordered By: Bandar Chanel on 11-23-2022 Creatinine [Mass/Vol] 0.57 mg/dL 0.55-1.02 [facility] Comment on above: The validity of the calculated GFR & GFRAA in patients over 70 years has not been determined. Clinical correlation is essential. Serum or plasma urea nitroge n measurement (mass/volume)Ordered By: Bandar Chanel on 11-23-2022 Urea nitrogen [Mass/Vol] 13 mg/dL 7-18 [facility] Thin prep Papanicolaou smear with manual screeningOrdered By: Bandar Chanel on 11-23-2022 Thin prep Papanicolaou smear with manual screening 6 5-15 [facility] Absolute lymphocyte countOrd ered By: Katie Randle on 11-22-2022 Lymphocytes Auto (Unsp spec) [#/Vol] 1.44 10*3/uL 0.83-4.51 [facility] Basophil percentageOrdered B y: Katie Randle on 11-22-2022 Basophils/100 WBC (Bld) 0.7 % 0-1 [facility] Chloride [Moles/Vol] 102 mmol/L 98-107 [facility] Eosinophils/100 WBC (Bld) 6.7 % 0-5 [facility] Glucose [Mass/Vol] 82 mg/dL 74-106 [facility] Neutrophils (Bld) [#/Vol] 6.1 10*3/uL 2.0-7.7 [facility] Neutrophils/100 WBC (Bld) 64.5 % 47-70 [facility] Potassium [Moles/Vol] 4.1 mmol/L 3.5-5.1 [facility] Sodium [Moles/Vol] 137 mmol/L 136-145 [facility] WBC (Bld) [#/Vol] 9.4 10*3/uL 4.4-11.0 [facility] Blood erythrocytes count (nu mber/volume)Ordered By: Katie Randle on 11-22-2022 RBC (Bld) [#/Vol] 3.81 10*6/uL 4.2-5.4 [facility] Blood hemoglobin measurement (mass/volume)Ordered By: Katie Randle on 11-22-2022 Hemoglobin (Bld) [Mass/Vol] 11.0 g/dL 12.0-15.0 [facility] Blood lymphocytes/100 leukoc ytesOrdered By: Katie Randle on 11-22-2022 Lymphocytes/100 WBC (Bld) 15.4 % 19-41 [facility] Blood monocytes/100 leukocyt esOrdered By: Katie Randle on 11-22-2022 Monocytes/100 WBC (Bld) 12.3 % 0-10 [facility] Blood platelet mean volumeOr dered By: Katie Randle on 11-22-2022 Platelet mean volume (Bld) [Entitic vol] 11.8 fL 6.2-12.0 [facility] CNOVon 11-22-2022 [facility] AIDEN IFELDS ([id number]) 1945 F Date Time Provider Department 11/22/22 11:45 AM ELIEL BLOUNT [facility] During your visit today, we recorded the following information about you: Temperature Pulse Respiration Blood pressure 99.6 degrees 85/minute 18/minute 110/64 Weight 68 kg Eliel Blount APRN.[employer] 11/22/2022 12:42 PM Signed Subjective HPI Nontoxic-appearing female presents urgent care chief complaint cough. Duration of symptoms 3 weeks. Associated symptoms productive cough low-grade fever. States she is feeling better presents today due to family wanting her to be seen. Has used a cough suppressant this is helped. Denies any pain currently. No known sick contacts. Denies any high fevers chest pain shortness of breath pleuritic pain hemoptysis nausea vomiting abdominal pain or change in bowel or bladder habits. Past medical history prescription medication use allergies reviewed. .Patient presents with: Cough: Cough x 3 weeks PAST MEDICAL HISTORY Diagnosis Date Abdominal pain, left lower quadrant Abdominal pain, right lower quadrant Anxiety state, unspecified Breast cancer (HCC) left Colitis Depressive disorder, not elsewhere classified HTN (hypertension) Hypothyroidism Insomnia, unspecified Mitral valve disorders(424.0) Unspecified constipation PAST SURGICAL HISTORY Procedure Laterality Date ARTHROSCOPY KNEE DIAGNOSTIC W/WO SYNOVIAL BX SPX 2011 Arthroscopy, left knee COLONOSCOPY FLX DX W/COLLJ SPEC WHEN PFRMD 10/07/07 EYE SURGERY HX Left 10/21/2014 laser glaucoma surgery EYE SURGERY HX Right 11/04/2014 laser glaucoma surgery INSJ TUNNELED CTR VAD W/SUBQ PORT AGE 6 YR/> 3-11-13 RIGHT IJ MAST MODF RAD W/AX LYMPH NOD W/WO PECT/ANAID MIN 5-16-13 left OPEN TREATMENT PROXIMAL HUMERAL FRACTURE Right 06/13/2018 ORIF right shoulder proximal humerus PAST SURGICAL HISTORY OF lump removed from left side of neck as a child PAST SURGICAL HISTORY OF breast biopsies, negative PAST SURGICAL HISTORY OF 01/2008 DANDE PAST SURGICAL HISTORY OF 06/08/2009 Thyroidectomy PAST SURGICAL HISTORY OF 2011 ganglions cyst removed from left hand twice PAST SURGICAL HISTORY OF 06/06/2012 Left breast biopsy PAST SURGICAL HISTORY OF 06/26/2012 Left axillary biopsy PAST SURGICAL HISTORY OF 2014 right upper arm- removal of melanoma PAST SURGICAL HISTORY OF Left 10/21/2014 PAST SURGICAL HISTORY OF Right 11/04/2014 PAST SURGICAL HISTORY OF 09/2021 rib plating TONSILLECTOMY PRIMARY/SECONDARY Tonsillectomy ALLERGIES Antihistamines - Alkylamine, Benadryl [Diphenhydramine Hcl], and Neosporin [Nibmnjah-Izzjczaviy-Cc lymyxin] MEDICATIONS oxyCODONE IR (ROXICODONE) 5 mg immediate release tablet Take 5-10 mg by mouth every 4 hours as needed for pain. acetaminophen (TYLENOL) 325 mg tablet Take 3 tablets by mouth every 6 hours as needed for pain. memantine (NAMENDA) 5 mg tablet Take 1 tablet by mouth daily at bedtime. polyvinyl alcohol-povidone (REFRESH) 1.4-0.6 % ophthalmic solution Use 1 Drop in both eyes as needed. clonazePAM (KLONOPIN) 1 mg tablet Take 1 mg by mouth. Take one tablet by mouth five times a day as needed meclizine (ANTIVERT) 25 mg tab Take 25 mg by mouth three times daily as needed. pregabalin (LYRICA) 75 mg capsule Take 75 mg by mouth twice daily. valACYclovir (VALTREX) 1 gram Take 1,000 mg by mouth once daily. potassium chloride (KLOR-CON) 20 mEq packet Take 40 mEq by mouth once daily. With food Magnesium 250 mg tab Take 500 mg by mouth as directed. polyethylene glycol 3350 (MIRALAX, GLYCOLAX) 17 gram/dose powder Take 17 g by mouth once daily. levothyroxine (SYNTHROID) 125 mcg tablet Take 125 mcg by mouth once daily. calcitriol (ROCALTROL) 0.5 mcg capsule Take 1 capsule by mouth once daily. indapamide (LOZOL) 1.25 mg tablet Take 1.25 mg by mouth every morning. pyridoxine (VITAMIN B6) 100 mg tablet Take 100 mg by mouth once daily. Cholecalciferol, Vitamin D3, 1,000 unit tab Take 1 tablet by mouth once daily. docusate sodium (COLACE) 100 mg ORAL Cap Take three capsules by mouth twice daily as needed. glycerin(COLACE (GLYCERIN) 1.5 G RECT SUPP) Insert one suppository into rectum once daily FAMILY HISTORY Problem Relation Age of Onset Heart Mother stents None Father suicide, depression age 68. Heart Sister Thyroid Sister Social History Tobacco Use Smoking status: Former Packs/day: 0.50 Years: 40.00 Total pack years: 20.00 Types: Cigarettes Quit date: 02/2019 Years since quittin.7 Smokeless tobacco: Never Vaping Use Vaping Use: Never used Substance Use Topics Alcohol use: No Drug use: No BP 110/64 Pulse 85 Temp 37.6 ?C (99.6 ?F) (Tympanic) Resp 18 Wt 68 kg (150 lb) SpO2 93% BMI 24.21 kg/m? Review of Systems Constitutional: Negative for chills, fever and azam (more content not included)... Normal [facility] COVID-19 virus antigen assay Ordered By: Katie Randle on 11-22-2022 SARS-CoV-2 (COVID-19) Ag IA.rapid Ql (Resp) [facility] Determination of erythrocyte mean corpuscular volume (MCV)Ordered By: Katie Randle on 11-22-2022 MCV (RBC) [Entitic vol] 92.1 fL 81-99 [facility] Hematocrit Auto (Bld) [Volum e fraction]Ordered By: Katiebriana Randle on 11-22-2022 Hematocrit (Bld) [Volume fraction] 35.1 % 37-47 [facility] Laboratory - Chemistry and C hemistry - challengeOrdered By: Katie Randle on 11-22-2022 CO2 [Moles/Vol] 32.0 mmol/L 21.0-32.0 [facility] Natriuretic peptide B (Bld) [Mass/Vol] 198.9 pg/mL 0-100 [facility] Urea nitrogen/Creatinine [Mass ratio] 27.9 mg/mg 10-20 [facility] Laboratory - Hematology and Cell countsOrdered By: Katiebriana Randle on 11-22-2022 Erythrocyte distribution width (RBC) [Entitic vol] 56.1 fL 35.1-43.9 [facility] Erythrocyte distribution width (RBC) [Ratio] 16.7 % 11.6-14.6 [facility] Immature granulocytes/100 WBC (Bld) 0.400 % 0.0-0.9 [facility] Comment on above: IG% - Immature Granu locytes (promyelocytes, myelocytes and metamyelocytes) > 1% indicates that a LEFT SHIFT is Present. MCH (RBC) [Entitic mass] 28.9 pg 27.0-32.0 [facility] Nucleated RBC/100 WBC (Bld) [Ratio] 0 % 0-5 [facility] MCHC Auto (RBC) [Mass/Vol]Or dered By: Katie Randle on 11-22-2022 MCHC (RBC) [Mass/Vol] 31.3 g/dL 32-36 [facility] No Panel InformationOrdered By: Katie Randle on 11-22-2022 Estimated Creatinine Clearance Calc 44.80 ml/min [facility] Estimated GFR (MDRD) Amer 132 mL/min >60 [facility] Comment on above: GFR Calc Estimated GFR (MDRD) Non-Af Amer 109 mL/min >60 [facility] Comment on above: Non- GFR Calc Troponin I High Sensitivity 7 pg/mL 3.0-54.0 [facility] Comment on above: Please Note: New Rowan t Units and Gender Specific Reference Ranges. For more information see Policy Stat Procedure [place] High Sensitivity Troponin (TNIH) and attachments. Platelets bldOrdered By: Amy Randle on 11-22-2022 Platelets (Bld) [#/Vol] 247 10*3/uL 150-450 [facility] Respiratory pathogens DNA an d RNA panel LEONA+probe (Resp)Ordered By: Bandar Chanel on 11-22-2022 Respiratory Panel (PCR) Rhinovirus [facility] SARS-CoV-2 RNA Resp Ql LEONA+p robeon 11-22-2022 SARS-CoV-2 (COVID-19) RNA LEONA+probe Ql (Resp) COVID 19 RESULT: Not detected The method used is RT-PCR or an equivalent NAAT method. Reference Range (the expected result in uninfected individuals): Not detected Normal [facility] Comment on above: Performed By: #### [id number] #### [facility] CLIA [id number] [address] [place] [address] [place] Serum or plasma calcium rajni urement (mass/volume)Ordered By: Katie Randle on 11-22-2022 Calcium [Mass/Vol] 8.3 mg/dL 8.5-10.1 [facility] Serum or plasma creatinine m easurement (mass/volume)Ordered By: Katie Randle on 11-22-2022 Creatinine [Mass/Vol] 0.57 mg/dL 0.55-1.02 [facility] Comment on above: The validity of the calculated GFR & GFRAA in patients over 70 years has not been determined. Clinical correlation is essential. Serum or plasma urea nitroge n measurement (mass/volume)Ordered By: Katie Randle on 11-22-2022 Urea nitrogen [Mass/Vol] 16 mg/dL 7-18 [facility] Thin prep Papanicolaou smear with manual screeningOrdered By: Katie Randle on 11-22-2022 Thin prep Papanicolaou smear with manual screening 3 5-15 [facility] XR CHEST 2V FRONTAL/LATon XR CHEST 2V FRONTAL/LAT * * *Final Repor t* * * DATE OF EXAM: Nov 22 2022 12:17PM WOX 5291 - XR CHEST 2V FRONTAL/LAT / PROCEDURE REASON: Acute cough * * * * Physician Interpretation * * * * EXAMINATION: CHEST RADIOGRAPH (2 VIEW FRONTAL and LATERAL) CLINICAL HISTORY: Acute cough MQ: XC2_6 EXAM DATE/TIME: 11/22/2022 12:17 PM COMPARISON: Chest radiograph 11/02/2021 RESULT: Lines, tubes, and devices: Right chest wall port catheter with distal tip in the proximal SVC. Lungs and pleura: No consolidation. No lung mass. No pleural effusion. No pneumothorax. Cardiomediastinal silhouette: Normal cardiomediastinal silhouette. Bones and soft tissues: Plate and screw fixation of the left fourth through eighth ribs with hardware grossly unchanged dating back to 11/02/2021. Multiple chronic unfixed left superior rib fracture deformities are stable. Partially imaged hardware in the proximal right humerus. Dextroscoliosis of the thoracolumbar junction. IMPRESSION: No acute cardiopulmonary process. Calculation Clerk: FILIBERTO Transcribe Date/Time: Nov 22 2022 12:17P Dictated by : SHEN ESQUIVEL MD This examination was interpreted and the report reviewed and electronically signed by: SHEN ESQUIVEL MD on Nov 22 2022 12:20PM EST [id number] Normal [facility] XR Chest PA and Lateralon IMPRESSION: No acute cardiopulmonary process. Calculation Clerk: FILIBERTO Transcribe Date/Time: Nov 22 2022 12:17P Dictated by : SHEN ESQUIVEL MD This examination was interpreted and the report reviewed and electronically signed by: SHEN ESQUIVEL MD on Nov 22 2022 12:20PM EST DIVISION OF RADIOLOGY * * *Final Report* * * DATE OF EXAM: Nov 22 2022 12:17PM WOX [id number] - XR CHEST 2V FRONTAL/LAT / PROCEDURE REASON: Acute cough * * * * Physician Interpretation * * * * EXAMINATION: CHEST RADIOGRAPH (2 VIEW FRONTAL & LATERAL) CLINICAL HISTORY: Acute cough MQ: XC2_6 EXAM DATE/TIME: 11/22/2022 12:17 PM COMPARISON: Chest radiograph 11/02/2021 RESULT: Lines, tubes, and devices: Right chest wall port catheter with distal tip in the proximal SVC. Lungs and pleura: No consolidation. No lung mass. No pleural effusion. No pneumothorax. Cardiomediastinal silhouette: Normal cardiomediastinal silhouette. Bones and soft tissues: Plate and screw fixation of the left fourth through eighth ribs with hardware grossly unchanged dating back to 11/02/2021. Multiple chronic unfixed left superior rib fracture deformities are stable. Partially imaged hardware in the proximal right humerus. Dextroscoliosis of the thoracolumbar junction. DIVISION OF RADIOLOGY Provider, [facility] - 11/22/2022 * * *Final Report* * * DATE OF EXAM: Nov 22 2022 12:17PM WOX 5291 - XR CHEST 2V FRONTAL/LAT / PROCEDURE REASON: Acute cough * * * * Physician Interpretation * * * * EXAMINATION: CHEST RADIOGRAPH (2 VIEW FRONTAL & LATERAL) CLINICAL HISTORY: Acute cough MQ: XC2_6 EXAM DATE/TIME: 11/22/2022 12:17 PM COMPARISON: Chest radiograph 11/02/2021 RESULT: Lines, tubes, and devices: Right chest wall port catheter with distal tip in the proximal SVC. Lungs and pleura: No consolidation. No lung mass. No pleural effusion. No pneumothorax. Cardiomediastinal silhouette: Normal cardiomediastinal silhouette. Bones and soft tissues: Plate and screw fixation of the left fourth through eighth ribs with hardware grossly unchanged dating back to 11/02/2021. Multiple chronic unfixed left superior rib fracture deformities are stable. Partially imaged hardware in the proximal right humerus. Dextroscoliosis of the thoracolumbar junction. IMPRESSION IMPRESSION: No acute cardiopulmonary process. Calculation Clerk: FILIBERTO Transcribe Date/Time: Nov 22 2022 12:17P Dictated by : SHEN ESQUIVEL MD This examination was interpreted and the report reviewed and electronically signed by: SHEN ESQUIVEL MD on Nov 22 2022 12:20PM EST [facility] Radiology Study observation (narrative) Lakisha mckenna [facility] XR Chest PA and LateralOrder ed By: [facility] Provider on 11-22-2022 [facility] Laboratory - Chemistry and C hemistry - challengeOrdered By: Erica Richardson on 11-14-2022 Free T4 [Mass/Vol] 1.35 ng/dL 0.76-1.46 [facility] No Panel InformationOrdered By: Erica Richardson on 11-14-2022 Free Triiodothyronine (T3) pg/dL 2.2 pg/mL 2.18-3.98 [facility] Thyroid Stimulating Hormone (TSH) 0.75 uIU/mL 0.358-3.74 [facility] Absolute lymphocyte countOrd ered By: Dr. Richardson on 09-13-2022 Lymphocytes Auto (Unsp spec) [#/Vol] 1.36 10*3/uL 0.83-4.51 [facility] Basophil percentageOrdered B y: Dr. Richardson on 09-13-2022 Basophils/100 WBC (Bld) 1.0 % 0-1 [facility] Bilirubin [Mass/Vol] 0.50 mg/dL 0.20-1.00 [facility] Comment on above: For patients on eltr ombopag therapy, use of Dimension [place] TBIL is not recommended. Chloride [Moles/Vol] 101 mmol/L 98-107 [facility] Eosinophils/100 WBC (Bld) 5.7 % 0-5 [facility] Glucose [Mass/Vol] 94 mg/dL 74-106 [facility] Neutrophils (Bld) [#/Vol] 7.2 10*3/uL 2.0-7.7 [facility] Neutrophils/100 WBC (Bld) 70.2 % 47-70 [facility] Potassium [Moles/Vol] 4.4 mmol/L 3.5-5.1 [facility] Protein [Mass/Vol] 8.0 g/dL 6.4-8.2 [facility] Sodium [Moles/Vol] 137 mmol/L 136-145 [facility] WBC (Bld) [#/Vol] 10.3 10*3/uL 4.4-11.0 [facility] Blood erythrocytes count (nu mber/volume)Ordered By: Dr. Richardson on 09-13-2022 RBC (Bld) [#/Vol] 3.92 10*6/uL 4.2-5.4 [facility] Blood hemoglobin measurement (mass/volume)Ordered By: Dr. Richardson on 09-13-2022 Hemoglobin (Bld) [Mass/Vol] 12.5 g/dL 12.0-15.0 [facility] Blood lymphocytes/100 leukoc ytesOrdered By: Dr. Richardson on 09-13-2022 Lymphocytes/100 WBC (Bld) 13.2 % 19-41 [facility] Blood monocytes/100 leukocyt esOrdered By: Dr. Richardson on 09-13-2022 Monocytes/100 WBC (Bld) 9.5 % 0-10 [facility] Blood platelet mean volumeOr dered By: Dr. Richardson on 09-13-2022 Platelet mean volume (Bld) [Entitic vol] 11.6 fL 6.2-12.0 [facility] Determination of erythrocyte mean corpuscular volume (MCV)Ordered By: Dr. Richardson on 09-13-2022 MCV (RBC) [Entitic vol] 100.5 fL 81-99 [facility] Hematocrit Auto (Bld) [Volum e fraction]Ordered By: Dr. Richardson on 09-13-2022 Hematocrit (Bld) [Volume fraction] 39.4 % 37-47 [facility] Laboratory - Chemistry and C hemistry - challengeOrdered By: Dr. Richardson on 09-13-2022 ALP [Catalytic activity/Vol] 136 U/L 45-117 [facility] ALT [Catalytic activity/Vol] 23 U/L 13-56 [facility] CO2 [Moles/Vol] 28.0 mmol/L 21.0-32.0 [facility] Free T4 [Mass/Vol] 1.06 ng/dL 0.76-1.46 [facility] Globulin (S) [Mass/Vol] 4.2 g/dL 2.2-4.2 [facility] Urea nitrogen/Creatinine [Mass ratio] 32.9 mg/mg 10-20 [facility] Laboratory - Hematology and Cell countsOrdered By: Dr. Richardson on 09-13-2022 Erythrocyte distribution width (RBC) [Entitic vol] 48.6 fL 35.1-43.9 [facility] Erythrocyte distribution width (RBC) [Ratio] 13.1 % 11.6-14.6 [facility] Immature granulocytes/100 WBC (Bld) 0.400 % 0.0-0.9 [facility] Comment on above: IG% - Immature Granu locytes (promyelocytes, myelocytes and metamyelocytes) > 1% indicates that a LEFT SHIFT is Present. MCH (RBC) [Entitic mass] 31.9 pg 27.0-32.0 [facility] Nucleated RBC/100 WBC (Bld) [Ratio] 0 % 0-5 [facility] MCHC Auto (RBC) [Mass/Vol]Or dered By: Dr. Richardson on 09-13-2022 MCHC (RBC) [Mass/Vol] 31.7 g/dL 32-36 [facility] No Panel InformationOrdered By: Dr. Richardson on 09-13-2022 Estimated GFR (MDRD) Amer 111 mL/min >60 [facility] Comment on above: GFR Calc Estimated GFR (MDRD) Non-Af Amer 91 mL/min >60 [facility] Comment on above: Non- GFR Calc Free Triiodothyronine (T3) pg/dL 1.4 pg/mL 2.18-3.98 [facility] Thyroid Stimulating Hormone (TSH) 6.44 uIU/mL 0.358-3.74 [facility] Platelets bldOrdered By: Dr. Richardson on 09-13-2022 Platelets (Bld) [#/Vol] 335 10*3/uL 150-450 [facility] Serum or plasma albumin rajni urement (mass/volume)Ordered By: Dr. Richardson on 09-13-2022 Albumin [Mass/Vol] 3.8 g/dL 3.2-5.0 [facility] Serum or plasma albumin/glob ulin mass ratioOrdered By: Dr. Richardson on 09-13-2022 Albumin/Globulin [Mass ratio] 0.9 {ratio} 0.9-2.4 [facility] Serum or plasma calcium rajni urement (mass/volume)Ordered By: Dr. Richardson on 09-13-2022 Calcium [Mass/Vol] 8.3 mg/dL 8.5-10.1 [facility] Serum or plasma creatinine m easurement (mass/volume)Ordered By: Dr. Richardson on 09-13-2022 Creatinine [Mass/Vol] 0.67 mg/dL 0.55-1.02 [facility] Comment on above: The validity of the calculated GFR & GFRAA in patients over 70 years has not been determined. Clinical correlation is essential. Serum or plasma urea nitroge n measurement (mass/volume)Ordered By: Dr. Richardson on 09-13-2022 Urea nitrogen [Mass/Vol] 22 mg/dL 7-18 [facility] Serum or plasma uric acid me asurement (mass/volume)Ordered By: Dr. Richardson on 09-13-2022 Urate [Mass/Vol] 3.6 mg/dL 2.6-6.0 [facility] Comment on above: The drugs N-Acetylcy steine and Metamizole may falsely depress this assay. Thin prep Papanicolaou smear with manual screeningOrdered By: Dr. Richardson on 09-13-2022 Thin prep Papanicolaou smear with manual screening 20 U/L 15-37 [facility] Thin prep Papanicolaou smear with manual screening 8 5-15 [facility] Basophil percentageOrdered B y: Roberto Andre on 03-06-2022 Chloride [Moles/Vol] 102 mmol/L 98-107 [facility] Glucose [Mass/Vol] 90 mg/dL 74-106 [facility] Potassium [Moles/Vol] 4.0 mmol/L 3.5-5.1 [facility] Sodium [Moles/Vol] 137 mmol/L 136-145 [facility] WBC (Bld) [#/Vol] 5.7 10*3/uL 4.4-11.0 [facility] Blood erythrocytes count (nu mber/volume)Ordered By: Roberto Andre on 03-06-2022 RBC (Bld) [#/Vol] 4.05 10*6/uL 4.2-5.4 [facility] Blood hemoglobin measurement (mass/volume)Ordered By: Roberto Andre on 03-06-2022 Hemoglobin (Bld) [Mass/Vol] 12.0 g/dL 12.0-15.0 [facility] Blood platelet mean volumeOr dered By: Roberto Andre on 03-06-2022 Platelet mean volume (Bld) [Entitic vol] 12.7 fL 6.2-12.0 [facility] Determination of erythrocyte mean corpuscular volume (MCV)Ordered By: Roberto Andre on 03-06-2022 MCV (RBC) [Entitic vol] 91.9 fL 81-99 [facility] Hematocrit Auto (Bld) [Volum e fraction]Ordered By: Roberto Andre on 03-06-2022 Hematocrit (Bld) [Volume fraction] 37.2 % 37-47 [facility] Laboratory - Chemistry and C hemistry - challengeOrdered By: Roberto Andre on 03-06-2022 CO2 [Moles/Vol] 28.0 mmol/L 21.0-32.0 [facility] Urea nitrogen/Creatinine [Mass ratio] 15.9 mg/mg 10-20 [facility] Laboratory - Hematology and Cell countsOrdered By: Roberto Andre on 03-06-2022 Erythrocyte distribution width (RBC) [Entitic vol] 59.7 fL 35.1-43.9 [facility] Erythrocyte distribution width (RBC) [Ratio] 17.7 % 11.6-14.6 [facility] MCH (RBC) [Entitic mass] 29.6 pg 27.0-32.0 [facility] MCHC Auto (RBC) [Mass/Vol]Or dered By: Roberto Andre on 03-06-2022 MCHC (RBC) [Mass/Vol] 32.3 g/dL 32-36 [facility] No Panel InformationOrdered By: Roberto Andre on 03-06-2022 Estimated GFR (MDRD) Amer 134 mL/min >60 [facility] Comment on above: GFR Calc Estimated GFR (MDRD) Non-Af Amer 111 mL/min >60 [facility] Comment on above: Non- GFR Calc Platelets bldOrdered By: Wan Andre on 03-06-2022 Platelets (Bld) [#/Vol] 272 10*3/uL 150-450 [facility] Serum or plasma calcium rajni urement (mass/volume)Ordered By: Roberto Andre on 03-06-2022 Calcium [Mass/Vol] 9.0 mg/dL 8.5-10.1 [facility] Serum or plasma creatinine m easurement (mass/volume)Ordered By: Roberto Andre on 03-06-2022 Creatinine [Mass/Vol] 0.57 mg/dL 0.55-1.02 [facility] Comment on above: The validity of the calculated GFR & GFRAA in patients over 70 years has not been determined. Clinical correlation is essential. Serum or plasma urea nitroge n measurement (mass/volume)Ordered By: Roberto Andre on 03-06-2022 Urea nitrogen [Mass/Vol] 9 mg/dL 7-18 [facility] Thin prep Papanicolaou smear with manual screeningOrdered By: Roberto Andre on 03-06-2022 Thin prep Papanicolaou smear with manual screening 7 5-15 [facility] Basophil percentageOrdered B y: Roberto Andre on 02-27-2022 Chloride [Moles/Vol] 106 mmol/L 98-107 [facility] Glucose [Mass/Vol] 91 mg/dL 74-106 [facility] Potassium [Moles/Vol] 4.1 mmol/L 3.5-5.1 [facility] Sodium [Moles/Vol] 139 mmol/L 136-145 [facility] WBC (Bld) [#/Vol] 6.6 10*3/uL 4.4-11.0 [facility] Blood erythrocytes count (nu mber/volume)Ordered By: Roberto Andre on 02-27-2022 RBC (Bld) [#/Vol] 3.93 10*6/uL 4.2-5.4 [facility] Blood hemoglobin measurement (mass/volume)Ordered By: Roberto Andre on 02-27-2022 Hemoglobin (Bld) [Mass/Vol] 11.6 g/dL 12.0-15.0 [facility] Blood platelet mean volumeOr dered By: Roberto Andre on 02-27-2022 Platelet mean volume (Bld) [Entitic vol] 12.8 fL 6.2-12.0 [facility] Determination of erythrocyte mean corpuscular volume (MCV)Ordered By: Roberto Andre on 02-27-2022 MCV (RBC) [Entitic vol] 90.6 fL 81-99 [facility] Hematocrit Auto (Bld) [Volum e fraction]Ordered By: Roberto Andre on 02-27-2022 Hematocrit (Bld) [Volume fraction] 35.6 % 37-47 [facility] Laboratory - Chemistry and C hemistry - challengeOrdered By: Roberto Andre on 02-27-2022 CO2 [Moles/Vol] 28.0 mmol/L 21.0-32.0 [facility] Urea nitrogen/Creatinine [Mass ratio] 29.4 mg/mg 10-20 [facility] Laboratory - Hematology and Cell countsOrdered By: Roberto Andre on 02-27-2022 Erythrocyte distribution width (RBC) [Entitic vol] 63.4 fL 35.1-43.9 [facility] Erythrocyte distribution width (RBC) [Ratio] 19.1 % 11.6-14.6 [facility] MCH (RBC) [Entitic mass] 29.5 pg 27.0-32.0 [facility] MCHC Auto (RBC) [Mass/Vol]Or dered By: Roberto Andre on 02-27-2022 MCHC (RBC) [Mass/Vol] 32.6 g/dL 32-36 [facility] No Panel InformationOrdered By: Roberto Andre on 02-27-2022 Estimated GFR (MDRD) Amer 131 mL/min >60 [facility] Comment on above: GFR Calc Estimated GFR (MDRD) Non-Af Amer 108 mL/min >60 [facility] Comment on above: Non- GFR Calc Platelets bldOrdered By: Wan Andre on 02-27-2022 Platelets (Bld) [#/Vol] 275 10*3/uL 150-450 [facility] Serum or plasma calcium rajni urement (mass/volume)Ordered By: Roberto Andre on 02-27-2022 Calcium [Mass/Vol] 9.1 mg/dL 8.5-10.1 [facility] Serum or plasma creatinine m easurement (mass/volume)Ordered By: Roberto Andre on 02-27-2022 Creatinine [Mass/Vol] 0.58 mg/dL 0.55-1.02 [facility] Comment on above: The validity of the calculated GFR & GFRAA in patients over 70 years has not been determined. Clinical correlation is essential. Serum or plasma urea nitroge n measurement (mass/volume)Ordered By: Roberto Andre on 02-27-2022 Urea nitrogen [Mass/Vol] 17 mg/dL 7-18 [facility] Thin prep Papanicolaou smear with manual screeningOrdered By: Roberto Andre on 02-27-2022 Thin prep Papanicolaou smear with manual screening 5 5-15 [facility] Basophil percentageOrdered B y: Roberto Andre on 02-20-2022 Chloride [Moles/Vol] 100 mmol/L 98-107 [facility] Glucose [Mass/Vol] 89 mg/dL 74-106 [facility] Potassium [Moles/Vol] 3.9 mmol/L 3.5-5.1 [facility] Sodium [Moles/Vol] 136 mmol/L 136-145 [facility] WBC (Bld) [#/Vol] 6.6 10*3/uL 4.4-11.0 [facility] Blood erythrocytes count (nu mber/volume)Ordered By: Roberto Andre on 02-20-2022 RBC (Bld) [#/Vol] 4.21 10*6/uL 4.2-5.4 [facility] Blood hemoglobin measurement (mass/volume)Ordered By: Roberto Andre on 02-20-2022 Hemoglobin (Bld) [Mass/Vol] 12.3 g/dL 12.0-15.0 [facility] Blood manual differential co mment interpretation (narrative result)Ordered By: Roberto Andre on 02-20-2022 Manual differential comment Donnie (Bld) [Interp] See comment [facility] Comment on above: 1+ ANISOCYTOSIS Blood platelet mean volumeOr dered By: Roberto Andre on 02-20-2022 Platelet mean volume (Bld) [Entitic vol] 11.7 fL 6.2-12.0 [facility] Determination of erythrocyte mean corpuscular volume (MCV)Ordered By: Roberto Andre on 02-20-2022 MCV (RBC) [Entitic vol] 91.0 fL 81-99 [facility] Hematocrit Auto (Bld) [Volum e fraction]Ordered By: Roberto Andre on 02-20-2022 Hematocrit (Bld) [Volume fraction] 38.3 % 37-47 [facility] Laboratory - Chemistry and C hemistry - challengeOrdered By: Roberto Andre on 02-20-2022 CO2 [Moles/Vol] 29.0 mmol/L 21.0-32.0 [facility] Urea nitrogen/Creatinine [Mass ratio] 20.7 mg/mg 10-20 [facility] Laboratory - Hematology and Cell countsOrdered By: Roberto Andre on 02-20-2022 Erythrocyte distribution width (RBC) [Entitic vol] 66.1 fL 35.1-43.9 [facility] Erythrocyte distribution width (RBC) [Ratio] 19.8 % 11.6-14.6 [facility] MCH (RBC) [Entitic mass] 29.2 pg 27.0-32.0 [facility] MCHC Auto (RBC) [Mass/Vol]Or dered By: Roberto Andre on 02-20-2022 MCHC (RBC) [Mass/Vol] 32.1 g/dL 32-36 [facility] No Panel InformationOrdered By: Roberto Andre on 02-20-2022 Estimated GFR (MDRD) Amer 182 mL/min >60 [facility] Comment on above: GFR Calc Estimated GFR (MDRD) Non-Af Amer 150 mL/min >60 [facility] Comment on above: Non- GFR Calc Platelets bldOrdered By: Wan Andre on 02-20-2022 Platelets (Bld) [#/Vol] 325 10*3/uL 150-450 [facility] Serum or plasma calcium rajni urement (mass/volume)Ordered By: Roberto Andre on 02-20-2022 Calcium [Mass/Vol] 9.3 mg/dL 8.5-10.1 [facility] Serum or plasma creatinine m easurement (mass/volume)Ordered By: Roberto Andre on 02-20-2022 Creatinine [Mass/Vol] 0.44 mg/dL 0.55-1.02 [facility] Comment on above: The validity of the calculated GFR & GFRAA in patients over 70 years has not been determined. Clinical correlation is essential. Serum or plasma urea nitroge n measurement (mass/volume)Ordered By: Roberto Andre on 02-20-2022 Urea nitrogen [Mass/Vol] 9 mg/dL 7-18 [facility] Thin prep Papanicolaou smear with manual screeningOrdered By: Roberto Andre on 02-20-2022 Thin prep Papanicolaou smear with manual screening 7 5-15 [facility] Basophil percentageon 2021 Chloride [Moles/Vol] 106 mmol/L 98-107 [facility] Work Phone: Glucose [Mass/Vol] 78 mg/dL 74-106 [facility] Work Phone: [phone] Potassium [Moles/Vol] 3.8 mmol/L 3.5-5.1 [facility] Work Phone: [phone] Sodium [Moles/Vol] 140 mmol/L 136-145 [facility] Work Phone: [phone] WBC (Bld) [#/Vol] 5.2 10*3/uL 4.4-11.0 [facility] Work Phone: Blood erythrocytes count (nu mber/volume)on 02-13-2022 RBC (Bld) [#/Vol] 3.68 10*6/uL 4.2-5.4 [facility] Work Phone: Blood hemoglobin measurement (mass/volume)on 02-13-2022 Hemoglobin (Bld) [Mass/Vol] 10.7 g/dL 12.0-15.0 [facility] Work Phone: [phone] Blood platelet mean volumeon 02-13-2022 Platelet mean volume (Bld) [Entitic vol] 12.6 fL 6.2-12.0 [facility] Work Phone: [phone] Determination of erythrocyte mean corpuscular volume (MCV)on 02-13-2022 MCV (RBC) [Entitic vol] 90.5 fL 81-99 [facility] Work Phone: Hematocrit Auto (Bld) [Volum e fraction]on 02-13-2022 Hematocrit (Bld) [Volume fraction] 33.3 % 37-47 [facility] Work Phone: Laboratory - Chemistry and C hemistry - challengeon 02-13-2022 CO2 [Moles/Vol] 32.0 mmol/L 21.0-32.0 [facility] Work Phone: Urea nitrogen/Creatinine [Mass ratio] 28.9 mg/mg 10- [facility] Work Phone: [phone] Laboratory - Hematology and Cell countson 02-13-2022 Erythrocyte distribution width (RBC) [Entitic vol] 67.1 fL 35.1-43.9 [facility] Work Phone: [phone] Erythrocyte distribution width (RBC) [Ratio] 20.0 % 11.6-14.6 [facility] Work Phone: [phone] MCH (RBC) [Entitic mass] 29.1 pg 27.0-32.0 [facility] Work Phone: [phone] MCHC Auto (RBC) [Mass/Vol]on 02-13-2022 MCHC (RBC) [Mass/Vol] 32.1 g/dL 32-36 [facility] Work Phone: No Panel Informationon 02-13 Estimated GFR (MDRD) Amer 175 mL/min >60 [facility] Work Phone: Comment on above: GFR Calc Estimated GFR (MDRD) Non-Af Amer 144 mL/min >60 [facility] Work Phone: Comment on above: Non- GFR Calc Platelets bldon 02-13-2022 Platelets (Bld) [#/Vol] 258 10*3/uL 150-450 [facility] Work Phone: [phone] Serum or plasma calcium rajni urement (mass/volume)on 02-13-2022 Calcium [Mass/Vol] 9.1 mg/dL 8.5-10.1 [facility] Work Phone: [phone] Serum or plasma creatinine m easurement (mass/volume)on 02-13-2022 Creatinine [Mass/Vol] 0.45 mg/dL 0.55-1.02 [facility] Work Phone: Comment on above: The validity of the calculated GFR & GFRAA in patients over 70 years has not been determined. Clinical correlation is essential. Serum or plasma urea nitroge n measurement (mass/volume)on 02-13-2022 Urea nitrogen [Mass/Vol] 13 mg/dL 7-18 [facility] Work Phone: Thin prep Papanicolaou smear with manual screeningon 02-13-2022 Thin prep Papanicolaou smear with manual screening 2 5-15 [facility] Work Phone: Basophil percentageon 2021 Chloride [Moles/Vol] 105 mmol/L 98-107 [facility] Work Phone: [phone] Glucose [Mass/Vol] 80 mg/dL 74-106 [facility] Work Phone: Potassium [Moles/Vol] 3.8 mmol/L 3.5-5.1 [facility] Work Phone: [phone] Sodium [Moles/Vol] 141 mmol/L 136-145 [facility] Work Phone: [phone] WBC (Bld) [#/Vol] 5.6 10*3/uL 4.4-11.0 [facility] Work Phone: Blood erythrocytes count (nu mber/volume)on 02-06-2022 RBC (Bld) [#/Vol] 3.76 10*6/uL 4.2-5.4 [facility] Work Phone: Blood hemoglobin measurement (mass/volume)on 02-06-2022 Hemoglobin (Bld) [Mass/Vol] 10.6 g/dL 12.0-15.0 [facility] Work Phone: Blood manual differential co mment interpretation (narrative result)on 02-06-2022 Manual differential comment Donnie (Bld) [Interp] COMMENT [facility] Work Phone: Comment on above: 1+ ANISO. Blood platelet mean volumeon 02-06-2022 Platelet mean volume (Bld) [Entitic vol] 12.8 fL 6.2-12.0 [facility] Work Phone: Determination of erythrocyte mean corpuscular volume (MCV)on 10-18-2022 MCV (RBC) [Entitic vol] 89.6 fL 81-99 [facility] Work Phone: [phone] Hematocrit Auto (Bld) [Volum e fraction]on 02-06-2022 Hematocrit (Bld) [Volume fraction] 33.7 % 37-47 [facility] Work Phone: [phone] Laboratory - Chemistry and C hemistry - challengeon 02-06-2022 CO2 [Moles/Vol] 28.0 mmol/L 21.0-32.0 [facility] Work Phone: [phone] Urea nitrogen/Creatinine [Mass ratio] 32.7 mg/mg 10-20 [facility] Work Phone: [phone] Laboratory - Hematology and Cell countson 02-06-2022 Erythrocyte distribution width (RBC) [Entitic vol] 66.9 fL 35.1-43.9 [facility] Work Phone: [phone] Erythrocyte distribution width (RBC) [Ratio] 20.2 % 11.6-14.6 [facility] Work Phone: [phone] MCH (RBC) [Entitic mass] 28.2 pg 27.0-32.0 [facility] Work Phone: [phone] MCHC Auto (RBC) [Mass/Vol]on 02-06-2022 MCHC (RBC) [Mass/Vol] 31.5 g/dL 32-36 [facility] Work Phone: No Panel Informationon 02-06 Estimated GFR (MDRD) Amer 158 mL/min >60 [facility] Work Phone: [phone] Comment on above: GFR Calc Estimated GFR (MDRD) Non-Af Amer 131 mL/min >60 [facility] Work Phone: [phone] Comment on above: Non- GFR Calc Platelets bldon 02-06-2022 Platelets (Bld) [#/Vol] 236 10*3/uL 150-450 [facility] Work Phone: [phone] Serum or plasma calcium rajni urement (mass/volume)on 02-06-2022 Calcium [Mass/Vol] 9.0 mg/dL 8.5-10.1 [facility] Work Phone: Serum or plasma creatinine m easurement (mass/volume)on 02-06-2022 Creatinine [Mass/Vol] 0.49 mg/dL 0.55-1.02 [facility] Work Phone: Comment on above: The validity of the calculated GFR & GFRAA in patients over 70 years has not been determined. Clinical correlation is essential. Serum or plasma urea nitroge n measurement (mass/volume)on 02-06-2022 Urea nitrogen [Mass/Vol] 16 mg/dL 11-06 [facility] Work Phone: [phone] Thin prep Papanicolaou smear with manual screeningon 02-06-2022 Thin prep Papanicolaou smear with manual screening 8 -15 [facility] Work Phone: Basophil percentageon 2021 Chloride [Moles/Vol] 104 mmol/L 98-107 [facility] Work Phone: Glucose [Mass/Vol] 83 mg/dL 74-106 [facility] Work Phone: Potassium [Moles/Vol] 3.9 mmol/L 3.5-5.1 [facility] Work Phone: Sodium [Moles/Vol] 139 mmol/L 136-145 [facility] Work Phone: WBC (Bld) [#/Vol] 7.0 10*3/uL 4.4-11.0 [facility] Work Phone: [phone] Blood erythrocytes count (nu mber/volume)on 01-30-2022 RBC (Bld) [#/Vol] 4.34 10*6/uL 4.2-5.4 [facility] Work Phone: Blood hemoglobin measurement (mass/volume)on 01-30-2022 Hemoglobin (Bld) [Mass/Vol] 12.0 g/dL 12.0-15.0 [facility] Work Phone: [phone] Blood platelet mean volumeon 01-30-2022 Platelet mean volume (Bld) [Entitic vol] 13.4 fL 6.2-12.0 [facility] Work Phone: Determination of erythrocyte mean corpuscular volume (MCV)on 01-30-2022 MCV (RBC) [Entitic vol] 90.1 fL 81-99 [facility] Work Phone: Hematocrit Auto (Bld) [Volum e fraction]on 01-30-2022 Hematocrit (Bld) [Volume fraction] 39.1 % 37-47 [facility] Work Phone: Laboratory - Chemistry and C hemistry - challengeon 01-30-2022 CO2 [Moles/Vol] 28.0 mmol/L 21.0-32.0 [facility] Work Phone: Urea nitrogen/Creatinine [Mass ratio] 17.5 mg/mg 10-20 [facility] Work Phone: Laboratory - Hematology and Cell countson 01-30-2022 Erythrocyte distribution width (RBC) [Entitic vol] 66.9 fL 35.1-43.9 [facility] Work Phone: Erythrocyte distribution width (RBC) [Ratio] 20.3 % 11.6-14.6 [facility] Work Phone: MCH (RBC) [Entitic mass] 27.6 pg 27.0-32.0 [facility] Work Phone: MCHC Auto (RBC) [Mass/Vol]on 01-30-2022 MCHC (RBC) [Mass/Vol] 30.7 g/dL 32-36 [facility] Work Phone: No Panel Informationon 01-30 Estimated GFR (MDRD) Amer 133 mL/min >60 [facility] Work Phone: Comment on above: GFR Calc Estimated GFR (MDRD) Non-Af Amer 110 mL/min >60 [facility] Work Phone: Comment on above: Non- GFR Calc Platelets bldon 01-30-2022 Platelets (Bld) [#/Vol] 249 10*3/uL 150-450 [facility] Work Phone: Serum or plasma calcium rajni urement (mass/volume)on 01-30-2022 Calcium [Mass/Vol] 8.9 mg/dL 8.5-10.1 [facility] Work Phone: [phone] Serum or plasma creatinine m easurement (mass/volume)on 01-30-2022 Creatinine [Mass/Vol] 0.57 mg/dL 0.55-1.02 [facility] Work Phone: [phone] Comment on above: The validity of the calculated GFR & GFRAA in patients over 70 years has not been determined. Clinical correlation is essential. Serum or plasma urea nitroge n measurement (mass/volume)on 01-30-2022 Urea nitrogen [Mass/Vol] 10 mg/dL 7-18 [facility] Work Phone: Thin prep Papanicolaou smear with manual screeningon 01-30-2022 Thin prep Papanicolaou smear with manual screening 7 5-15 [facility] Work Phone: Basophil percentageon 2021 Chloride [Moles/Vol] 106 mmol/L 98-107 [facility] Work Phone: Glucose [Mass/Vol] 92 mg/dL 74-106 [facility] Work Phone: Potassium [Moles/Vol] 3.2 mmol/L 3.5-5.1 [facility] Work Phone: Sodium [Moles/Vol] 142 mmol/L 136-145 [facility] Work Phone: [phone] WBC (Bld) [#/Vol] 7.6 10*3/uL 4.4-11.0 [facility] Work Phone: [phone] Blood erythrocytes count (nu mber/volume)on 01-22-2022 RBC (Bld) [#/Vol] 4.15 10*6/uL 4.2-5.4 [facility] Work Phone: [phone] Blood hemoglobin measurement (mass/volume)on 01-22-2022 Hemoglobin (Bld) [Mass/Vol] 11.4 g/dL 12.0-15.0 [facility] Work Phone: [phone] Blood platelet mean volumeon 01-22-2022 Platelet mean volume (Bld) [Entitic vol] 12.8 fL 6.2-12.0 [facility] Work Phone: [phone] Determination of erythrocyte mean corpuscular volume (MCV)on 01-22-2022 MCV (RBC) [Entitic vol] 88.0 fL 81-99 [facility] Work Phone: Hematocrit Auto (Bld) [Volum e fraction]on 01-22-2022 Hematocrit (Bld) [Volume fraction] 36.5 % 37-47 [facility] Work Phone: Laboratory - Chemistry and C hemistry - challengeon 01-22-2022 CO2 [Moles/Vol] 26.0 mmol/L 21.0-32.0 [facility] Work Phone: Magnesium [Mass/Vol] 1.9 mg/dL 1.6-2.6 [facility] Work Phone: [phone] Urea nitrogen/Creatinine [Mass ratio] 24.1 mg/mg 10-20 [facility] Work Phone: [phone] Laboratory - Hematology and Cell countson 01-22-2022 Erythrocyte distribution width (RBC) [Entitic vol] 63.7 fL 35.1-43.9 [facility] Work Phone: [phone] Erythrocyte distribution width (RBC) [Ratio] 19.9 % 11.6-14.6 [facility] Work Phone: [phone] MCH (RBC) [Entitic mass] 27.5 pg 27.0-32.0 [facility] Work Phone: [phone] MCHC Auto (RBC) [Mass/Vol]on 01-22-2022 MCHC (RBC) [Mass/Vol] 31.2 g/dL 32-36 [facility] Work Phone: No Panel Informationon 01-22 Estimated GFR (MDRD) Amer 130 mL/min >60 [facility] Work Phone: Comment on above: GFR Calc Estimated GFR (MDRD) Non-Af Amer 107 mL/min >60 [facility] Work Phone: Comment on above: Non- GFR Calc Thyroid Stimulating Hormone (TSH) 0.57 uIU/mL 0.358-3.74 [facility] Work Phone: Vitamin D 25-Hydroxy 39.5 ng/mL [facility] Work Phone: Comment on above: Vitamin D 25(OH) Sta tus Range Deficiency <20 ng/mL (50nmol/L) Insufficiency 20 - 30 ng/mL (50 - 75 nmol/L) Sufficiency 30 - 100 ng/mL (75 - 250 nmol/L) Toxicity >100 ng/mL (>250 nmol/L) Platelets bldon 01-22-2022 Platelets (Bld) [#/Vol] 263 10*3/uL 150-450 [facility] Work Phone: Serum or plasma calcium rajni urement (mass/volume)on 01-22-2022 Calcium [Mass/Vol] 8.5 mg/dL 8.5-10.1 [facility] Work Phone: Serum or plasma creatinine m easurement (mass/volume)on 01-22-2022 Creatinine [Mass/Vol] 0.58 mg/dL 0.55-1.02 [facility] Work Phone: Comment on above: The validity of the calculated GFR & GFRAA in patients over 70 years has not been determined. Clinical correlation is essential. Serum or plasma urea nitroge n measurement (mass/volume)on 01-22-2022 Urea nitrogen [Mass/Vol] 14 mg/dL 7-18 [facility] Work Phone: Thin prep Papanicolaou smear with manual screeningon 01-22-2022 Thin prep Papanicolaou smear with manual screening 10 5-15 [facility] Work Phone: Basophil percentageon 2021 Chloride [Moles/Vol] 104 mmol/L 98-107 [facility] Work Phone: Glucose [Mass/Vol] 89 mg/dL 74-106 [facility] Work Phone: [phone] Potassium [Moles/Vol] 3.8 mmol/L 3.5-5.1 [facility] Work Phone: [phone] Sodium [Moles/Vol] 139 mmol/L 136-145 [facility] Work Phone: [phone] WBC (Bld) [#/Vol] 6.8 10*3/uL 4.4-11.0 [facility] Work Phone: Blood erythrocytes count (nu mber/volume)on 01-16-2022 RBC (Bld) [#/Vol] 3.95 10*6/uL 4.2-5.4 [facility] Work Phone: [phone] Blood hemoglobin measurement (mass/volume)on 01-16-2022 Hemoglobin (Bld) [Mass/Vol] 10.9 g/dL 12.0-15.0 [facility] Work Phone: Blood platelet mean volumeon 01-16-2022 Platelet mean volume (Bld) [Entitic vol] 12.9 fL 6.2-12.0 [facility] Work Phone: [phone] Determination of erythrocyte mean corpuscular volume (MCV)on 01-16-2022 MCV (RBC) [Entitic vol] 87.3 fL 81-99 [facility] Work Phone: [phone] Hematocrit Auto (Bld) [Volum e fraction]on 01-16-2022 Hematocrit (Bld) [Volume fraction] 34.5 % 37-47 [facility] Work Phone: Laboratory - Chemistry and C hemistry - challengeon 01-16-2022 CO2 [Moles/Vol] 28.0 mmol/L 21.0-32.0 [facility] Work Phone: Urea nitrogen/Creatinine [Mass ratio] 22.2 mg/mg 10-20 [facility] Work Phone: Laboratory - Hematology and Cell countson 01-16-2022 Erythrocyte distribution width (RBC) [Entitic vol] 60.9 fL 35.1-43.9 [facility] Work Phone: Erythrocyte distribution width (RBC) [Ratio] 18.9 % 11.6-14.6 [facility] Work Phone: MCH (RBC) [Entitic mass] 27.6 pg 27.0-32.0 [facility] Work Phone: [phone] MCHC Auto (RBC) [Mass/Vol]on 01-16-2022 MCHC (RBC) [Mass/Vol] 31.6 g/dL 32-36 [facility] Work Phone: No Panel Informationon 01-16 Estimated GFR (MDRD) Amer 142 mL/min >60 [facility] Work Phone: Comment on above: GFR Calc Estimated GFR (MDRD) Non-Af Amer 117 mL/min >60 [facility] Work Phone: Comment on above: Non- GFR Calc Platelets bldon 01-16-2022 Platelets (Bld) [#/Vol] 286 10*3/uL 150-450 [facility] Work Phone: Serum or plasma calcium rajni urement (mass/volume)on 01-16-2022 Calcium [Mass/Vol] 8.3 mg/dL 8.5-10.1 [facility] Work Phone: [phone] Serum or plasma creatinine m easurement (mass/volume)on 01-16-2022 Creatinine [Mass/Vol] 0.54 mg/dL 0.55-1.02 [facility] Work Phone: Comment on above: The validity of the calculated GFR & GFRAA in patients over 70 years has not been determined. Clinical correlation is essential. Serum or plasma urea nitroge n measurement (mass/volume)on 01-16-2022 Urea nitrogen [Mass/Vol] 12 mg/dL 7-18 [facility] Work Phone: Thin prep Papanicolaou smear with manual screeningon 01-16-2022 Thin prep Papanicolaou smear with manual screening 7 5-15 [facility] Work Phone: Basophil percentageon 2021 Chloride [Moles/Vol] 106 mmol/L 98-107 [facility] Work Phone: Glucose [Mass/Vol] 91 mg/dL 74-106 [facility] Work Phone: [phone] Potassium [Moles/Vol] 4.3 mmol/L 3.5-5.1 [facility] Work Phone: Sodium [Moles/Vol] 140 mmol/L 136-145 [facility] Work Phone: [phone] WBC (Bld) [#/Vol] 14.6 10*3/uL 4.4-11.0 [facility] Work Phone: Blood erythrocytes count (nu mber/volume)on 01-09-2022 RBC (Bld) [#/Vol] 3.86 10*6/uL 4.2-5.4 [facility] Work Phone: Blood hemoglobin measurement (mass/volume)on 01-09-2022 Hemoglobin (Bld) [Mass/Vol] 10.6 g/dL 12.0-15.0 [facility] Work Phone: Blood platelet mean volumeon 01-09-2022 Platelet mean volume (Bld) [Entitic vol] 13.1 fL 6.2-12.0 [facility] Work Phone: CNOVon 01-09-2022 CNOV Normal [facility] Determination of erythrocyte mean corpuscular volume (MCV)on 01-09-2022 MCV (RBC) [Entitic vol] 88.1 fL 81-99 [facility] Work Phone: Hematocrit Auto (Bld) [Volum e fraction]on 01-09-2022 Hematocrit (Bld) [Volume fraction] 34.0 % 37-47 [facility] Work Phone: Laboratory - Chemistry and C hemistry - challengeon 01-09-2022 CO2 [Moles/Vol] 28.0 mmol/L 21.0-32.0 [facility] Work Phone: [phone] Urea nitrogen/Creatinine [Mass ratio] 24.5 mg/mg - [facility] Work Phone: [phone] Laboratory - Hematology and Cell countson 01-09-2022 Erythrocyte distribution width (RBC) [Entitic vol] 59.2 fL 35.1-43.9 [facility] Work Phone: [phone] Erythrocyte distribution width (RBC) [Ratio] 18.4 % 11.6-14.6 [facility] Work Phone: [phone] MCH (RBC) [Entitic mass] 27.5 pg 27.0-32.0 [facility] Work Phone: [phone] MCHC Auto (RBC) [Mass/Vol]on 01-09-2022 MCHC (RBC) [Mass/Vol] 31.2 g/dL 32-36 [facility] Work Phone: No Panel Informationon 01-09 Estimated GFR (MDRD) Amer 144 mL/min >60 [facility] Work Phone: Comment on above: GFR Calc Estimated GFR (MDRD) Non-Af Amer 119 mL/min >60 [facility] Work Phone: Comment on above: Non- GFR Calc Platelets bldon 01-09-2022 Platelets (Bld) [#/Vol] 220 10*3/uL 150-450 [facility] Work Phone: [phone] Serum or plasma calcium rajni urement (mass/volume)on 01-09-2022 Calcium [Mass/Vol] 8.6 mg/dL 8.5-10.1 [facility] Work Phone: [phone] Serum or plasma creatinine m easurement (mass/volume)on 01-09-2022 Creatinine [Mass/Vol] 0.53 mg/dL 0.55-1.02 [facility] Work Phone: [phone] Comment on above: The validity of the calculated GFR & GFRAA in patients over 70 years has not been determined. Clinical correlation is essential. Serum or plasma urea nitroge n measurement (mass/volume)on 01-09-2022 Urea nitrogen [Mass/Vol] 13 mg/dL 7-18 [facility] Work Phone: Thin prep Papanicolaou smear with manual screeningon 01-09-2022 Thin prep Papanicolaou smear with manual screening 6 5-15 [facility] Work Phone: [phone] MRI BRAIN WO/W IVCONon 01-04 [facility] Basophil percentageon 2021 Chloride [Moles/Vol] 107 mmol/L 98-107 [facility] Work Phone: Glucose [Mass/Vol] 89 mg/dL 74-106 [facility] Work Phone: [phone] Potassium [Moles/Vol] 4.0 mmol/L 3.5-5.1 [facility] Work Phone: [phone] Sodium [Moles/Vol] 141 mmol/L 136-145 [facility] Work Phone: WBC (Bld) [#/Vol] 6.8 10*3/uL 4.4-11.0 [facility] Work Phone: Blood erythrocytes count (nu mber/volume)on 01-02-2022 RBC (Bld) [#/Vol] 4.07 10*6/uL 4.2-5.4 [facility] Work Phone: Blood hemoglobin measurement (mass/volume)on 01-02-2022 Hemoglobin (Bld) [Mass/Vol] 11.5 g/dL 12.0-15.0 [facility] Work Phone: Blood platelet mean volumeon 01-02-2022 Platelet mean volume (Bld) [Entitic vol] 13.0 fL 6.2-12.0 [facility] Work Phone: Determination of erythrocyte mean corpuscular volume (MCV)on 01-02-2022 MCV (RBC) [Entitic vol] 90.4 fL 81-99 [facility] Work Phone: Hematocrit Auto (Bld) [Volum e fraction]on 01-02-2022 Hematocrit (Bld) [Volume fraction] 36.8 % 37-47 [facility] Work Phone: Laboratory - Chemistry and C hemistry - challengeon 01-02-2022 CO2 [Moles/Vol] 27.0 mmol/L 21.0-32.0 [facility] Work Phone: [phone] Urea nitrogen/Creatinine [Mass ratio] 15.7 mg/mg 10-20 [facility] Work Phone: Laboratory - Hematology and Cell countson 01-02-2022 Erythrocyte distribution width (RBC) [Entitic vol] 57.1 fL 35.1-43.9 [facility] Work Phone: [phone] Erythrocyte distribution width (RBC) [Ratio] 17.2 % 11.6-14.6 [facility] Work Phone: [phone] MCH (RBC) [Entitic mass] 28.3 pg 27.0-32.0 [facility] Work Phone: MCHC Auto (RBC) [Mass/Vol]on 01-02-2022 MCHC (RBC) [Mass/Vol] 31.3 g/dL 32-36 [facility] Work Phone: No Panel Informationon 01-02 Estimated GFR (MDRD) Amer 132 mL/min >60 [facility] Work Phone: Comment on above: GFR Calc Estimated GFR (MDRD) Non-Af Amer 109 mL/min >60 [facility] Work Phone: [phone] Comment on above: Non- GFR Calc Platelets bldon 01-02-2022 Platelets (Bld) [#/Vol] 274 10*3/uL 150-450 [facility] Work Phone: Serum or plasma calcium rajni urement (mass/volume)on 01-02-2022 Calcium [Mass/Vol] 9.7 mg/dL 8.5-10.1 [facility] Work Phone: Serum or plasma creatinine m easurement (mass/volume)on 01-02-2022 Creatinine [Mass/Vol] 0.58 mg/dL 0.55-1.02 [facility] Work Phone: Comment on above: The validity of the calculated GFR & GFRAA in patients over 70 years has not been determined. Clinical correlation is essential. Serum or plasma urea nitroge n measurement (mass/volume)on 01-02-2022 Urea nitrogen [Mass/Vol] 9 mg/dL 7-18 [facility] Work Phone: Thin prep Papanicolaou smear with manual screeningon 01-02-2022 Thin prep Papanicolaou smear with manual screening 7 5-15 [facility] Work Phone: Basophil percentageon 2021 Chloride [Moles/Vol] 104 mmol/L 98-107 [facility] Work Phone: Glucose [Mass/Vol] 77 mg/dL 74-106 [facility] Work Phone: Potassium [Moles/Vol] 4.1 mmol/L 3.5-5.1 [facility] Work Phone: Sodium [Moles/Vol] 140 mmol/L 136-145 [facility] Work Phone: WBC (Bld) [#/Vol] 7.0 10*3/uL 4.4-11.0 [facility] Work Phone: Blood erythrocytes count (nu mber/volume)on 12-26-2021 RBC (Bld) [#/Vol] 4.18 10*6/uL 4.2-5.4 [facility] Work Phone: Blood hemoglobin measurement (mass/volume)on 12-26-2021 Hemoglobin (Bld) [Mass/Vol] 12.5 g/dL 12.0-15.0 [facility] Work Phone: Blood platelet mean volumeon 12-26-2021 Platelet mean volume (Bld) [Entitic vol] 12.1 fL 6.2-12.0 [facility] Work Phone: [phone] Determination of erythrocyte mean corpuscular volume (MCV)on 12-26-2021 MCV (RBC) [Entitic vol] 96.9 fL 81-99 [facility] Work Phone: [phone] Hematocrit Auto (Bld) [Volum e fraction]on 12-26-2021 Hematocrit (Bld) [Volume fraction] 40.5 % 37-47 [facility] Work Phone: [phone] Laboratory - Chemistry and C hemistry - challengeon 12-26-2021 CO2 [Moles/Vol] 27.0 mmol/L 21.0-32.0 [facility] Work Phone: [phone] Urea nitrogen/Creatinine [Mass ratio] 18.7 mg/mg 10-20 [facility] Work Phone: [phone] Laboratory - Hematology and Cell countson 12-26-2021 Erythrocyte distribution width (RBC) [Entitic vol] 58.4 fL 35.1-43.9 [facility] Work Phone: [phone] Erythrocyte distribution width (RBC) [Ratio] 18.4 % 11.6-14.6 [facility] Work Phone: [phone] MCH (RBC) [Entitic mass] 29.9 pg 27.0-32.0 [facility] Work Phone: [phone] MCHC Auto (RBC) [Mass/Vol]on 12-26-2021 MCHC (RBC) [Mass/Vol] 30.9 g/dL 32-36 [facility] Work Phone: [phone] Panel Informationon 12-26 Estimated GFR (MDRD) Amer 143 mL/min >60 [facility] Work Phone: [phone] Comment on above: GFR Calc Estimated GFR (MDRD) Non-Af Amer 118 mL/min >60 [facility] Work Phone: [phone] Comment on above: Non- GFR Calc Platelets bldon 12-26-2021 Platelets (Bld) [#/Vol] 286 10*3/uL 150-450 [facility] Work Phone: Serum or plasma calcium rajni urement (mass/volume)on 12-26-2021 Calcium [Mass/Vol] 9.8 mg/dL 8.5-10.1 [facility] Work Phone: Serum or plasma creatinine m easurement (mass/volume)on 12-26-2021 Creatinine [Mass/Vol] 0.54 mg/dL 0.55-1.02 [facility] Work Phone: Comment on above: The validity of the calculated GFR & GFRAA in patients over 70 years has not been determined. Clinical correlation is essential. Serum or plasma urea nitroge n measurement (mass/volume)on 12-26-2021 Urea nitrogen [Mass/Vol] 10 mg/dL 7-18 [facility] Work Phone: Thin prep Papanicolaou smear with manual screeningon 12-26-2021 Thin prep Papanicolaou smear with manual screening 9 5-15 [facility] Work Phone: Basophil percentageon 2021 Chloride [Moles/Vol] 108 mmol/L 98-107 [facility] Work Phone: Glucose [Mass/Vol] 91 mg/dL 74-106 [facility] Work Phone: [phone] Potassium [Moles/Vol] 3.5 mmol/L 3.5-5.1 [facility] Work Phone: Sodium [Moles/Vol] 142 mmol/L 136-145 [facility] Work Phone: [phone] WBC (Bld) [#/Vol] 7.1 10*3/uL 4.4-11.0 [facility] Work Phone: Blood erythrocytes count (nu mber/volume)on 12-20-2021 RBC (Bld) [#/Vol] 3.81 10*6/uL 4.2-5.4 [facility] Work Phone: [phone] Blood hemoglobin measurement (mass/volume)on 12-20-2021 Hemoglobin (Bld) [Mass/Vol] 10.6 g/dL 12.0-15.0 [facility] Work Phone: [phone] Blood platelet mean volumeon 12-20-2021 Platelet mean volume (Bld) [Entitic vol] 13.0 fL 6.2-12.0 [facility] Work Phone: [phone] Determination of erythrocyte mean corpuscular volume (MCV)on 12-20-2021 MCV (RBC) [Entitic vol] 89.0 fL 81-99 [facility] Work Phone: [phone] Hematocrit Auto (Bld) [Volum e fraction]on 12-20-2021 Hematocrit (Bld) [Volume fraction] 33.9 % 37-47 [facility] Work Phone: [phone] Laboratory - Chemistry and C hemistry - challengeon 12-20-2021 CO2 [Moles/Vol] 27.0 mmol/L 21.0-32.0 [facility] Work Phone: [phone] Urea nitrogen/Creatinine [Mass ratio] 19.1 mg/mg 10-20 [facility] Work Phone: [phone] Laboratory - Hematology and Cell countson 12-20-2021 Erythrocyte distribution width (RBC) [Entitic vol] 51.5 fL 35.1-43.9 [facility] Work Phone: [phone] Erythrocyte distribution width (RBC) [Ratio] 15.8 % 11.6-14.6 [facility] Work Phone: [phone] MCH (RBC) [Entitic mass] 27.8 pg 27.0-32.0 [facility] Work Phone: [phone] MCHC Auto (RBC) [Mass/Vol]on 12-20-2021 MCHC (RBC) [Mass/Vol] 31.3 g/dL 32-36 [facility] Work Phone: [phone] No Panel Informationon 12-20 Estimated GFR (MDRD) Amer 132 mL/min >60 [facility] Work Phone: [phone] Comment on above: GFR Calc Estimated GFR (MDRD) Non-Af Amer 109 mL/min >60 [facility] Work Phone: Comment on above: Non- GFR Calc Platelets bldon 12-20-2021 Platelets (Bld) [#/Vol] 286 10*3/uL 150-450 [facility] Work Phone: Serum or plasma calcium rajni urement (mass/volume)on 12-20-2021 Calcium [Mass/Vol] 8.9 mg/dL 8.5-10.1 [facility] Work Phone: Serum or plasma creatinine m easurement (mass/volume)on 12-20-2021 Creatinine [Mass/Vol] 0.58 mg/dL 0.55-1.02 [facility] Work Phone: Comment on above: The validity of the calculated GFR & GFRAA in patients over 70 years has not been determined. Clinical correlation is essential. Serum or plasma urea nitroge n measurement (mass/volume)on 12-20-2021 Urea nitrogen [Mass/Vol] 11 mg/dL 7-18 [facility] Work Phone: Thin prep Papanicolaou smear with manual screeningon 12-20-2021 Thin prep Papanicolaou smear with manual screening 7 5-15 [facility] Work Phone: Basophil percentageon 2021 Basophil percentage 10-25 SEEN /hpf 0-5 [facility] Work Phone: Bilirubin Test strip Ql (U)o n 12-18-2021 Bilirubin Ql (U) Negative Negative [facility] Work Phone: Ketones Test strip Ql (U)on 12-18-2021 Ketones Ql (U) Negative Negative [facility] Work Phone: Mucus LM Ql (Urine sed)on Mucus Ql (Urine sed) 0 SEEN /hpf [facility] Work Phone: Nitrite Test strip Ql (U)on 12-18-2021 Nitrite Ql (U) Negative Negative [facility] Work Phone: Protein Test strip Ql (U)on 12-18-2021 Protein Ql (U) Negative Negative [facility] Work Phone: Squamous epithelial cells de tection in urine sediment by light microscopyon 12-18-2021 Epithelial cells.squamous LM Ql (Urine sed) 0 SEEN /hpf 5-10 [facility] Work Phone: Urine blood detectionon 11-21 RBC Ql (U) 10 /ul Negative [facility] Work Phone: [phone] RBC Ql (U) 0 SEEN /hpf 0-5 [facility] Work Phone: Urine clarityon 12-18-2021 Clarity (U) Clear Clear [facility] Work Phone: Urine color determinationon 12-18-2021 Color (U) Yellow Yellow [facility] Work Phone: Urine glucose detectionon Glucose Ql (U) Normal mg/dl Normal [facility] Work Phone: Urine leukocyte esterase det ection by dipstickon 12-18-2021 Leukocyte esterase Test strip Ql (U) 500 /ul Negative [facility] Work Phone: Urine pHon 12-18-2021 pH (U) 6.0 [pH] 5.0 - 8.0 [facility] Work Phone: Urine sediment bacteria coun t by microscopy (number/high power field)on 12-18-2021 Bacteria LM.HPF (Urine sed) [#/Area] 2 /[HPF] None Seen [facility] Work Phone: Urine specific gravity measu rementon 12-18-2021 Specific gravity (U) [Rel density] 1.020 1.002-1.030 [facility] Work Phone: Urobilinogen Auto test strip Ql (U)on 12-18-2021 Urobilinogen Ql (U) Normal mg/dl Normal [facility] Work Phone: Basophil percentageon 2021 Chloride [Moles/Vol] 106 mmol/L 98-107 [facility] Work Phone: Glucose [Mass/Vol] 85 mg/dL 74-106 [facility] Work Phone: [phone] Potassium [Moles/Vol] 3.5 mmol/L 3.5-5.1 [facility] Work Phone: [phone] Sodium [Moles/Vol] 140 mmol/L 136-145 [facility] Work Phone: [phone] WBC (Bld) [#/Vol] 8.8 10*3/uL 4.4-11.0 [facility] Work Phone: [phone] Blood erythrocytes count (nu mber/volume)on 12-12-2021 RBC (Bld) [#/Vol] 4.43 10*6/uL 4.2-5.4 [facility] Work Phone: [phone] Blood hemoglobin measurement (mass/volume)on 12-12-2021 Hemoglobin (Bld) [Mass/Vol] 12.3 g/dL 12.0-15.0 [facility] Work Phone: [phone] Blood platelet mean volumeon 12-12-2021 Platelet mean volume (Bld) [Entitic vol] 12.8 fL 6.2-12.0 [facility] Work Phone: [phone] Determination of erythrocyte mean corpuscular volume (MCV)on 12-12-2021 MCV (RBC) [Entitic vol] 87.6 fL 81-99 [facility] Work Phone: [phone] Hematocrit Auto (Bld) [Volum e fraction]on 12-12-2021 Hematocrit (Bld) [Volume fraction] 38.8 % 37-47 [facility] Work Phone: [phone] Laboratory - Chemistry and C hemistry - challengeon 12-12-2021 CO2 [Moles/Vol] 27.0 mmol/L 21.0-32.0 [facility] Work Phone: [phone] Urea nitrogen/Creatinine [Mass ratio] 18.6 mg/mg 10-20 [facility] Work Phone: [phone] Laboratory - Hematology and Cell countson 12-12-2021 Erythrocyte distribution width (RBC) [Entitic vol] 48.2 fL 35.1-43.9 [facility] Work Phone: Erythrocyte distribution width (RBC) [Ratio] 14.9 % 11.6-14.6 [facility] Work Phone: MCH (RBC) [Entitic mass] 27.8 pg 27.0-32.0 [facility] Work Phone: MCHC Auto (RBC) [Mass/Vol]on 12-12-2021 MCHC (RBC) [Mass/Vol] 31.7 g/dL 32-36 [facility] Work Phone: No Panel Informationon 12-12 Estimated GFR (MDRD) Amer 142 mL/min >60 [facility] Work Phone: Comment on above: GFR Calc Estimated GFR (MDRD) Non-Af Amer 117 mL/min >60 [facility] Work Phone: Comment on above: Non- GFR Calc Platelets bldon 12-12-2021 Platelets (Bld) [#/Vol] 354 10*3/uL 150-450 [facility] Work Phone: Serum or plasma calcium rajni urement (mass/volume)on 12-12-2021 Calcium [Mass/Vol] 9.8 mg/dL 8.5-10.1 [facility] Work Phone: Serum or plasma creatinine m easurement (mass/volume)on 12-12-2021 Creatinine [Mass/Vol] 0.54 mg/dL 0.55-1.02 [facility] Work Phone: Comment on above: The validity of the calculated GFR & GFRAA in patients over 70 years has not been determined. Clinical correlation is essential. Serum or plasma urea nitroge n measurement (mass/volume)on 12-12-2021 Urea nitrogen [Mass/Vol] 10 mg/dL 7-18 [facility] Work Phone: Thin prep Papanicolaou smear with manual screeningon 12-12-2021 Thin prep Papanicolaou smear with manual screening 7 5-15 [facility] Work Phone: Basophil percentageon 2021 Chloride [Moles/Vol] 104 mmol/L 98-107 [facility] Work Phone: Glucose [Mass/Vol] 100 mg/dL 74-106 [facility] Work Phone: Comment on above: Fasting Glucose resu lt from 100 to 125 mg/dL suggests IMPAIRED HOMEOSTASIS per A.D.A. criteria. Potassium [Moles/Vol] 3.8 mmol/L 3.5-5.1 [facility] Work Phone: Sodium [Moles/Vol] 138 mmol/L 136-145 [facility] Work Phone: WBC (Bld) [#/Vol] 10.0 10*3/uL 4.4-11.0 [facility] Work Phone: Blood erythrocytes count (nu mber/volume)on 12-05-2021 RBC (Bld) [#/Vol] 3.74 10*6/uL 4.2-5.4 [facility] Work Phone: Blood hemoglobin measurement (mass/volume)on 12-05-2021 Hemoglobin (Bld) [Mass/Vol] 10.8 g/dL 12.0-15.0 [facility] Work Phone: Blood platelet mean volumeon 12-05-2021 Platelet mean volume (Bld) [Entitic vol] 12.0 fL 6.2-12.0 [facility] Work Phone: [phone] Determination of erythrocyte mean corpuscular volume (MCV)on 12-05-2021 MCV (RBC) [Entitic vol] 90.1 fL 81-99 [facility] Work Phone: [phone] Hematocrit Auto (Bld) [Volum e fraction]on 12-05-2021 Hematocrit (Bld) [Volume fraction] 33.7 % 37-47 [facility] Work Phone: Laboratory - Chemistry and C hemistry - challengeon 12-05-2021 CO2 [Moles/Vol] 26.0 mmol/L 21.0-32.0 [facility] Work Phone: Urea nitrogen/Creatinine [Mass ratio] 20.2 mg/mg 10-20 [facility] Work Phone: [phone] Laboratory - Hematology and Cell countson 12-05-2021 Erythrocyte distribution width (RBC) [Entitic vol] 48.7 fL 35.1-43.9 [facility] Work Phone: Erythrocyte distribution width (RBC) [Ratio] 14.6 % 11.6-14.6 [facility] Work Phone: MCH (RBC) [Entitic mass] 28.9 pg 27.0-32.0 [facility] Work Phone: [phone] MCHC Auto (RBC) [Mass/Vol]on 12-05-2021 MCHC (RBC) [Mass/Vol] 32.0 g/dL 32-36 [facility] Work Phone: No Panel Informationon 12-05 Estimated GFR (MDRD) Amer 157 mL/min >60 [facility] Work Phone: Comment on above: GFR Calc Estimated GFR (MDRD) Non-Af Amer 130 mL/min >60 [facility] Work Phone: Comment on above: Non- GFR Calc Platelets bldon 12-05-2021 Platelets (Bld) [#/Vol] 360 10*3/uL 150-450 [facility] Work Phone: [phone] Serum or plasma calcium rajni urement (mass/volume)on 12-05-2021 Calcium [Mass/Vol] 9.9 mg/dL 8.5-10.1 [facility] Work Phone: [phone] Serum or plasma creatinine m easurement (mass/volume)on 12-05-2021 Creatinine [Mass/Vol] 0.49 mg/dL 0.55-1.02 [facility] Work Phone: Comment on above: The validity of the calculated GFR & GFRAA in patients over 70 years has not been determined. Clinical correlation is essential. Serum or plasma urea nitroge n measurement (mass/volume)on 12-05-2021 Urea nitrogen [Mass/Vol] 10 mg/dL 7-18 [facility] Work Phone: Thin prep Papanicolaou smear with manual screeningon 12-05-2021 Thin prep Papanicolaou smear with manual screening 8 5-15 [facility] Work Phone: Bilirubin Test strip Ql (U)o n 12-03-2021 Bilirubin Ql (U) Negative Negative [facility] Work Phone: Ketones Test strip Ql (U)on 12-03-2021 Ketones Ql (U) 5 mg/dl Negative [facility] Work Phone: Nitrite Test strip Ql (U)on 12-03-2021 Nitrite Ql (U) Positive Negative [facility] Work Phone: Protein Test strip Ql (U)on 12-03-2021 Protein Ql (U) 30 mg/dl Negative [facility] Work Phone: Urine blood detectionon 11-20 RBC Ql (U) 50 /ul Negative [facility] Work Phone: Urine clarityon 12-03-2021 Clarity (U) Cloudy Clear [facility] Work Phone: Urine color determinationon 12-03-2021 Color (U) Straw Yellow [facility] Work Phone: Urine glucose detectionon Glucose Ql (U) Normal mg/dl Normal [facility] Work Phone: Urine leukocyte esterase det ection by dipstickon 12-03-2021 Leukocyte esterase Test strip Ql (U) 500 /ul Negative [facility] Work Phone: Urine pHon 12-03-2021 pH (U) 6.0 [pH] 5.0 - 8.0 [facility] Work Phone: Urine specific gravity measu rementon 12-03-2021 Specific gravity (U) [Rel density] 1.010 1.002-1.030 [facility] Work Phone: Urobilinogen Auto test strip Ql (U)on 12-03-2021 Urobilinogen Ql (U) Normal mg/dl Normal [facility] Work Phone: Basophil percentageon 2021 Chloride [Moles/Vol] 101 mmol/L 98-107 [facility] Work Phone: Glucose [Mass/Vol] 107 mg/dL 74-106 [facility] Work Phone: Comment on above: Fasting Glucose resu lt from 100 to 125 mg/dL suggests IMPAIRED HOMEOSTASIS per A.D.A. criteria. Potassium [Moles/Vol] 3.6 mmol/L 3.5-5.1 [facility] Work Phone: Sodium [Moles/Vol] 136 mmol/L 136-145 [facility] Work Phone: Laboratory - Chemistry and C hemistry - challengeon 12-01-2021 CO2 [Moles/Vol] 29.0 mmol/L 21.0-32.0 [facility] Work Phone: Urea nitrogen/Creatinine [Mass ratio] 24.2 mg/mg 10-20 [facility] Work Phone: No Panel Informationon 12-01 Estimated GFR (MDRD) Amer 249 mL/min >60 [facility] Work Phone: Comment on above: GFR Calc Estimated GFR (MDRD) Non-Af Amer 206 mL/min >60 [facility] Work Phone: Comment on above: Non- GFR Calc Serum or plasma calcium rajni urement (mass/volume)on 12-01-2021 Calcium [Mass/Vol] 9.0 mg/dL 8.5-10.1 [facility] Work Phone: Serum or plasma creatinine m easurement (mass/volume)on 12-01-2021 Creatinine [Mass/Vol] 0.33 mg/dL 0.55-1.02 [facility] Work Phone: Comment on above: The validity of the calculated GFR & GFRAA in patients over 70 years has not been determined. Clinical correlation is essential. Serum or plasma urea nitroge n measurement (mass/volume)on 12-01-2021 Urea nitrogen [Mass/Vol] 8 mg/dL 7-18 [facility] Work Phone: Thin prep Papanicolaou smear with manual screeningon 12-01-2021 Thin prep Papanicolaou smear with manual screening 6 5-15 [facility] Work Phone: Basophil percentageon 2021 Chloride [Moles/Vol] 100 mmol/L 98-107 [facility] Work Phone: [phone] Glucose [Mass/Vol] 81 mg/dL 74-106 [facility] Work Phone: Potassium [Moles/Vol] 2.7 mmol/L 3.5-5.1 [facility] Work Phone: Comment on above: Critical Result(s) C alled at: 09:58:37 11/28/2021 by: Rosaura May to Christina. Results read back by same. Sodium [Moles/Vol] 134 mmol/L 136-145 [facility] Work Phone: WBC (Bld) [#/Vol] 9.7 10*3/uL 4.4-11.0 [facility] Work Phone: [phone] Blood erythrocytes count (nu mber/volume)on 11-28-2021 RBC (Bld) [#/Vol] 3.97 10*6/uL 4.2-5.4 [facility] Work Phone: [phone] Blood hemoglobin measurement (mass/volume)on 11-28-2021 Hemoglobin (Bld) [Mass/Vol] 11.4 g/dL 12.0-15.0 [facility] Work Phone: [phone] Blood platelet mean volumeon 11-28-2021 Platelet mean volume (Bld) [Entitic vol] 11.8 fL 6.2-12.0 [facility] Work Phone: [phone] Determination of erythrocyte mean corpuscular volume (MCV)on 11-28-2021 MCV (RBC) [Entitic vol] 88.7 fL 81-99 [facility] Work Phone: [phone] Hematocrit Auto (Bld) [Volum e fraction]on 11-28-2021 Hematocrit (Bld) [Volume fraction] 35.2 % 37-47 [facility] Work Phone: [phone] Laboratory - Chemistry and C hemistry - challengeon 11-28-2021 CO2 [Moles/Vol] 25.0 mmol/L 21.0-32.0 [facility] Work Phone: [phone] Urea nitrogen/Creatinine [Mass ratio] 10.9 mg/mg 10-20 [facility] Work Phone: [phone] Laboratory - Hematology and Cell countson 11-28-2021 Erythrocyte distribution width (RBC) [Entitic vol] 45.2 fL 35.1-43.9 [facility] Work Phone: [phone] Erythrocyte distribution width (RBC) [Ratio] 13.9 % 11.6-14.6 [facility] Work Phone: [phone] MCH (RBC) [Entitic mass] 28.7 pg 27.0-32.0 [facility] Work Phone: [phone] MCHC Auto (RBC) [Mass/Vol]on 11-28-2021 MCHC (RBC) [Mass/Vol] 32.4 g/dL 32-36 [facility] Work Phone: [phone] No Panel Informationon 11-28 Estimated GFR (MDRD) Amer 171 mL/min >60 [facility] Work Phone: [phone] Comment on above: GFR Calc Estimated GFR (MDRD) Non-Af Amer 141 mL/min >60 [facility] Work Phone: [phone] Comment on above: Non- GFR Calc Platelets bldon 11-28-2021 Platelets (Bld) [#/Vol] 339 10*3/uL 150-450 [facility] Work Phone: [phone] Serum or plasma calcium rajni urement (mass/volume)on 11-28-2021 Calcium [Mass/Vol] 9.1 mg/dL 8.5-10.1 [facility] Work Phone: Serum or plasma creatinine m easurement (mass/volume)on 11-28-2021 Creatinine [Mass/Vol] 0.46 mg/dL 0.55-1.02 [facility] Work Phone: Comment on above: The validity of the calculated GFR & GFRAA in patients over 70 years has not been determined. Clinical correlation is essential. Serum or plasma urea nitroge n measurement (mass/volume)on 11-28-2021 Urea nitrogen [Mass/Vol] 5 mg/dL 7-18 [facility] Work Phone: Thin prep Papanicolaou smear with manual screeningon 11-28-2021 Thin prep Papanicolaou smear with manual screening 9 5-15 [facility] Work Phone: Basophil percentageon 2021 Chloride [Moles/Vol] 102 mmol/L 98-107 [facility] Work Phone: Glucose [Mass/Vol] 103 mg/dL 74-106 [facility] Work Phone: Comment on above: Fasting Glucose resu lt from 100 to 125 mg/dL suggests IMPAIRED HOMEOSTASIS per A.D.A. criteria. Potassium [Moles/Vol] 3.2 mmol/L 3.5-5.1 [facility] Work Phone: Sodium [Moles/Vol] 136 mmol/L 136-145 [facility] Work Phone: [phone] WBC (Bld) [#/Vol] 9.2 10*3/uL 4.4-11.0 [facility] Work Phone: [phone] Blood erythrocytes count (nu mber/volume)on 11-21-2021 RBC (Bld) [#/Vol] 3.66 10*6/uL 4.2-5.4 [facility] Work Phone: [phone] Blood hemoglobin measurement (mass/volume)on 11-21-2021 Hemoglobin (Bld) [Mass/Vol] 10.6 g/dL 12.0-15.0 [facility] Work Phone: [phone] Blood platelet mean volumeon 11-21-2021 Platelet mean volume (Bld) [Entitic vol] 11.6 fL 6.2-12.0 [facility] Work Phone: [phone] Determination of erythrocyte mean corpuscular volume (MCV)on 11-21-2021 MCV (RBC) [Entitic vol] 91.8 fL 81-99 [facility] Work Phone: [phone] Hematocrit Auto (Bld) [Volum e fraction]on 11-21-2021 Hematocrit (Bld) [Volume fraction] 33.6 % 37-47 [facility] Work Phone: [phone] Laboratory - Chemistry and C hemistry - challengeon 11-21-2021 CO2 [Moles/Vol] 30.0 mmol/L 21.0-32.0 [facility] Work Phone: [phone] Urea nitrogen/Creatinine [Mass ratio] 14.3 mg/mg 10-20 [facility] Work Phone: [phone] Laboratory - Hematology and Cell countson 11-21-2021 Erythrocyte distribution width (RBC) [Entitic vol] 48.1 fL 35.1-43.9 [facility] Work Phone: [phone] Erythrocyte distribution width (RBC) [Ratio] 14.2 % 11.6-14.6 [facility] Work Phone: [phone] MCH (RBC) [Entitic mass] 29.0 pg 27.0-32.0 [facility] Work Phone: [phone] MCHC Auto (RBC) [Mass/Vol]on 11-21-2021 MCHC (RBC) [Mass/Vol] 31.5 g/dL 32-36 [facility] Work Phone: [phone] No Panel Informationon 11-21 Estimated GFR (MDRD) Amer 189 mL/min >60 [facility] Work Phone: [phone] Comment on above: GFR Calc Estimated GFR (MDRD) Non-Af Amer 156 mL/min >60 [facility] Work Phone: Comment on above: Non- GFR Calc Platelets bldon 11-21-2021 Platelets (Bld) [#/Vol] 382 10*3/uL 150-450 [facility] Work Phone: Serum or plasma calcium rajni urement (mass/volume)on 11-21-2021 Calcium [Mass/Vol] 9.2 mg/dL 8.5-10.1 [facility] Work Phone: Serum or plasma creatinine m easurement (mass/volume)on 11-21-2021 Creatinine [Mass/Vol] 0.42 mg/dL 0.55-1.02 [facility] Work Phone: Comment on above: The validity of the calculated GFR & GFRAA in patients over 70 years has not been determined. Clinical correlation is essential. Serum or plasma urea nitroge n measurement (mass/volume)on 11-21-2021 Urea nitrogen [Mass/Vol] 6 mg/dL 7-18 [facility] Work Phone: Thin prep Papanicolaou smear with manual screeningon 11-21-2021 Thin prep Papanicolaou smear with manual screening 4 5-15 [facility] Work Phone: Basophil percentageon 2021 Chloride [Moles/Vol] 101 mmol/L 98-107 [facility] Work Phone: Glucose [Mass/Vol] 94 mg/dL 74-106 [facility] Work Phone: [phone] Potassium [Moles/Vol] 4.1 mmol/L 3.5-5.1 [facility] Work Phone: [phone] Sodium [Moles/Vol] 136 mmol/L 136-145 [facility] Work Phone: [phone] WBC (Bld) [#/Vol] 10.6 10*3/uL 4.4-11.0 [facility] [place] Work Phone: Blood erythrocytes count (nu mber/volume)on 11-14-2021 RBC (Bld) [#/Vol] 3.93 10*6/uL 4.2-5.4 [facility] [place] Work Phone: [phone] Blood hemoglobin measurement (mass/volume)on 11-14-2021 Hemoglobin (Bld) [Mass/Vol] 11.6 g/dL 12.0-15.0 [facility] Work Phone: [phone] Blood platelet mean volumeon 11-14-2021 Platelet mean volume (Bld) [Entitic vol] 11.8 fL 6.2-12.0 [facility] Work Phone: [phone] Determination of erythrocyte mean corpuscular volume (MCV)on 11-14-2021 MCV (RBC) [Entitic vol] 96.2 fL 81-99 [facility] Work Phone: [phone] Hematocrit Auto (Bld) [Volum e fraction]on 11-14-2021 Hematocrit (Bld) [Volume fraction] 37.8 % 37-47 [facility] Work Phone: [phone] Laboratory - Chemistry and C hemistry - challengeon 11-14-2021 CO2 [Moles/Vol] 26.0 mmol/L 21.0-32.0 [facility] Work Phone: [phone] Urea nitrogen/Creatinine [Mass ratio] 11.9 mg/mg 10-20 [facility] Work Phone: [phone] Laboratory - Hematology and Cell countson 11-14-2021 Erythrocyte distribution width (RBC) [Entitic vol] 51.3 fL 35.1-43.9 [facility] Work Phone: [phone] Erythrocyte distribution width (RBC) [Ratio] 14.5 % 11.6-14.6 [facility] Work Phone: [phone] MCH (RBC) [Entitic mass] 29.5 pg 27.0-32.0 [facility] Work Phone: [phone] MCHC Auto (RBC) [Mass/Vol]on 11-14-2021 MCHC (RBC) [Mass/Vol] 30.7 g/dL 32-36 [facility] Work Phone: No Panel Informationon 11-14 Estimated GFR (MDRD) Amer 153 mL/min >60 [facility] Work Phone: Comment on above: GFR Calc Estimated GFR (MDRD) Non-Af Amer 126 mL/min >60 [facility] Work Phone: Comment on above: Non- GFR Calc Platelets bldon 11-14-2021 Platelets (Bld) [#/Vol] 473 10*3/uL 150-450 [facility] Work Phone: Serum or plasma calcium rajni urement (mass/volume)on 11-14-2021 Calcium [Mass/Vol] 9.7 mg/dL 8.5-10.1 [facility] Work Phone: Serum or plasma creatinine m easurement (mass/volume)on 11-14-2021 Creatinine [Mass/Vol] 0.50 mg/dL 0.55-1.02 [facility] Work Phone: Comment on above: The validity of the calculated GFR & GFRAA in patients over 70 years has not been determined. Clinical correlation is essential. Serum or plasma urea nitroge n measurement (mass/volume)on 11-14-2021 Urea nitrogen [Mass/Vol] 6 mg/dL 7-18 [facility] Work Phone: Thin prep Papanicolaou smear with manual screeningon 11-14-2021 Thin prep Papanicolaou smear with manual screening 9 5-15 [facility] Work Phone: Basophil percentageon 2021 Basophil percentage 0-5 SEEN /hpf 0-5 [facility] Work Phone: Bilirubin Test strip Ql (U)o n 11-09-2021 Bilirubin Ql (U) Negative Negative [facility] Work Phone: [phone] Ketones Test strip Ql (U)on 11-09-2021 Ketones Ql (U) Negative Negative [facility] Work Phone: Mucus LM Ql (Urine sed)on Mucus Ql (Urine sed) 0 SEEN /hpf [facility] Work Phone: Nitrite Test strip Ql (U)on 11-09-2021 Nitrite Ql (U) Positive Negative [facility] Work Phone: Protein Test strip Ql (U)on 11-09-2021 Protein Ql (U) Negative Negative [facility] Work Phone: Squamous epithelial cells de tection in urine sediment by light microscopyon 11-09-2021 Epithelial cells.squamous LM Ql (Urine sed) 0-5 SEEN /hpf 5-10 [facility] Work Phone: Urine blood detectionon 10-21 RBC Ql (U) 10 /ul Negative [facility] Work Phone: RBC Ql (U) 0 SEEN /hpf 0-5 [facility] Work Phone: Urine clarityon 11-09-2021 Clarity (U) Clear Clear [facility] Work Phone: Urine color determinationon 11-09-2021 Color (U) Yellow Yellow [facility] Work Phone: Urine glucose detectionon Glucose Ql (U) Normal mg/dl Normal [facility] Work Phone: Urine leukocyte esterase det ection by dipstickon 11-09-2021 Leukocyte esterase Test strip Ql (U) 500 /ul Negative [facility] Work Phone: Urine pHon 11-09-2021 pH (U) 7.0 [pH] 5.0 - 8.0 [facility] Work Phone: Urine sediment bacteria coun t by microscopy (number/high power field)on 11-09-2021 Bacteria LM.HPF (Urine sed) [#/Area] 0 /[HPF] None Seen [facility] Work Phone: Urine specific gravity measu rementon 11-09-2021 Specific gravity (U) [Rel density] 1.010 1.002-1.030 [facility] Work Phone: Urobilinogen Auto test strip Ql (U)on 11-09-2021 Urobilinogen Ql (U) Normal mg/dl Normal [facility] Work Phone: Basophil percentageon 2021 Chloride [Moles/Vol] 102 mmol/L 98-107 [facility] Work Phone: Glucose [Mass/Vol] 113 mg/dL 74-106 [facility] Work Phone: [phone] Comment on above: Fasting Glucose resu lt from 100 to 125 mg/dL suggests IMPAIRED HOMEOSTASIS per A.D.A. criteria. Potassium [Moles/Vol] 3.4 mmol/L 3.5-5.1 [facility] Work Phone: [phone] Sodium [Moles/Vol] 137 mmol/L 136-145 [facility] Work Phone: [phone] WBC (Bld) [#/Vol] 9.7 10*3/uL 4.4-11.0 [facility] Work Phone: Blood erythrocytes count (nu mber/volume)on 11-07-2021 RBC (Bld) [#/Vol] 3.32 10*6/uL 4.2-5.4 [facility] [place] Work Phone: [phone] Blood hemoglobin measurement (mass/volume)on 11-07-2021 Hemoglobin (Bld) [Mass/Vol] 9.9 g/dL 12.0-15.0 [facility] Work Phone: [phone] Blood platelet mean volumeon 11-07-2021 Platelet mean volume (Bld) [Entitic vol] 10.3 fL 6.2-12.0 [facility] Work Phone: [phone] Determination of erythrocyte mean corpuscular volume (MCV)on 11-07-2021 MCV (RBC) [Entitic vol] 94.9 fL 81-99 [facility] Work Phone: [phone] Hematocrit Auto (Bld) [Volum e fraction]on 11-07-2021 Hematocrit (Bld) [Volume fraction] 31.5 % 37-47 [facility] Work Phone: Laboratory - Chemistry and C hemistry - challengeon 11-07-2021 CO2 [Moles/Vol] 29.0 mmol/L 21.0-32.0 [facility] Work Phone: [phone] Urea nitrogen/Creatinine [Mass ratio] 17.7 mg/mg 10-20 [facility] Work Phone: [phone] Laboratory - Hematology and Cell countson 11-07-2021 Erythrocyte distribution width (RBC) [Entitic vol] 49.9 fL 35.1-43.9 [facility] Work Phone: [phone] distribution width (RBC) [Ratio] 14.2 % 11.6-14.6 [facility] Work Phone: [phone] MCH (RBC) [Entitic mass] 29.8 pg 27.0-32.0 [facility] Work Phone: [phone] MCHC Auto (RBC) [Mass/Vol]on 11-07-2021 MCHC (RBC) [Mass/Vol] 31.4 g/dL 32-36 [facility] Work Phone: No Panel Informationon 11-07 Estimated GFR (MDRD) Amer 203 mL/min >60 [facility] Work Phone: Comment on above: GFR Calc Estimated GFR (MDRD) Non-Af Amer 168 mL/min >60 [facility] Work Phone: Comment on above: Non- GFR Calc Platelets bldon 11-07-2021 Platelets (Bld) [#/Vol] 357 10*3/uL 150-450 [facility] Work Phone: [phone] Serum or plasma calcium rajni urement (mass/volume)on 11-07-2021 Calcium [Mass/Vol] 8.8 mg/dL 8.5-10.1 [facility] Work Phone: [phone] Serum or plasma creatinine m easurement (mass/volume)on 11-07-2021 Creatinine [Mass/Vol] 0.40 mg/dL 0.55-1.02 [facility] Work Phone: Comment on above: The validity of the calculated GFR & GFRAA in patients over 70 years has not been determined. Clinical correlation is essential. Serum or plasma urea nitroge n measurement (mass/volume)on 11-07-2021 Urea nitrogen [Mass/Vol] 7 mg/dL 7-18 [facility] Work Phone: Thin prep Papanicolaou smear with manual screeningon 11-07-2021 Thin prep Papanicolaou smear with manual screening 6 5-15 [facility] Work Phone: CNOVon 11-03-2021 CNOV Normal [facility] CNNURSEon 11-02-2021 CNNURSE Normal [facility] XR CHEST 2V FRONTAL/LATon XR CHEST 2V FRONTAL/LAT Normal [facility] Basophil percentageon 2021 Chloride [Moles/Vol] 99 mmol/L 98-107 [facility] Work Phone: Glucose [Mass/Vol] 107 mg/dL 74-106 [facility] Work Phone: Comment on above: Fasting Glucose resu lt from 100 to 125 mg/dL suggests IMPAIRED HOMEOSTASIS per A.D.A. criteria. Potassium [Moles/Vol] 3.5 mmol/L 3.5-5.1 [facility] Work Phone: Sodium [Moles/Vol] 135 mmol/L 136-145 [facility] Work Phone: [phone] WBC (Bld) [#/Vol] 12.1 10*3/uL 4.4-11.0 [facility] [place] Work Phone: Blood erythrocytes count (nu mber/volume)on 10-31-2021 RBC (Bld) [#/Vol] 3.12 10*6/uL 4.2-5.4 [facility] [place] Work Phone: [phone] Blood hemoglobin measurement (mass/volume)on 10-31-2021 Hemoglobin (Bld) [Mass/Vol] 9.3 g/dL 12.0-15.0 [facility] Work Phone: [phone] Blood platelet mean volumeon 10-31-2021 Platelet mean volume (Bld) [Entitic vol] 9.8 fL 6.2-12.0 [facility] Work Phone: Determination of erythrocyte mean corpuscular volume (MCV)on 10-31-2021 MCV (RBC) [Entitic vol] 96.2 fL 81-99 [facility] Work Phone: [phone] Hematocrit Auto (Bld) [Volum e fraction]on 10-31-2021 Hematocrit (Bld) [Volume fraction] 30.0 % 37-47 [facility] Work Phone: Laboratory - Chemistry and C hemistry - challengeon 10-31-2021 CO2 [Moles/Vol] 26.0 mmol/L 21.0-32.0 [facility] Work Phone: Urea nitrogen/Creatinine [Mass ratio] 14.1 mg/mg 10-20 [facility] Work Phone: [phone] Laboratory - Hematology and Cell countson 10-31-2021 Erythrocyte distribution width (RBC) [Entitic vol] 50.3 fL 35.1-43.9 [facility] Work Phone: [phone] Erythrocyte distribution width (RBC) [Ratio] 14.3 % 11.6-14.6 [facility] Work Phone: [phone] MCH (RBC) [Entitic mass] 29.8 pg 27.0-32.0 [facility] Work Phone: [phone] MCHC Auto (RBC) [Mass/Vol]on 10-31-2021 MCHC (RBC) [Mass/Vol] 31.0 g/dL 32-36 [facility] Work Phone: No Panel Informationon 10-31 Estimated GFR (MDRD) Amer 157 mL/min >60 [facility] Work Phone: Comment on above: GFR Calc Estimated GFR (MDRD) Non-Af Amer 129 mL/min >60 [facility] Work Phone: [phone] Comment on above: Non- GFR Calc Platelets bldon 10-31-2021 Platelets (Bld) [#/Vol] 459 10*3/uL 150-450 [facility] Work Phone: Serum or plasma calcium rajni urement (mass/volume)on 10-31-2021 Calcium [Mass/Vol] 7.8 mg/dL 8.5-10.1 [facility] Work Phone: Serum or plasma creatinine m easurement (mass/volume)on 10-31-2021 Creatinine [Mass/Vol] 0.50 mg/dL 0.55-1.02 [facility] Work Phone: Comment on above: The validity of the calculated GFR & GFRAA in patients over 70 years has not been determined. Clinical correlation is essential. Serum or plasma urea nitroge n measurement (mass/volume)on 10-31-2021 Urea nitrogen [Mass/Vol] 7 mg/dL 7-18 [facility] Work Phone: Thin prep Papanicolaou smear with manual screeningon 10-31-2021 Thin prep Papanicolaou smear with manual screening 10 5-15 [facility] Work Phone: CT BRAIN WO IVCONon 10-31-19 [facility] Basophil percentageon 2021 Chloride [Moles/Vol] 98 mmol/L 98-107 [facility] Work Phone: Glucose [Mass/Vol] 150 mg/dL 74-106 [facility] Work Phone: Comment on above: Fasting Glucose resu lt greater than or equal to 126 mg/dL suggests DIABETES MELLITUS per A.D.A. criteria. Potassium [Moles/Vol] 3.2 mmol/L 3.5-5.1 [facility] Work Phone: Sodium [Moles/Vol] 136 mmol/L 136-145 [facility] Work Phone: Laboratory - Chemistry and C hemistry - challengeon 10-27-2021 CO2 [Moles/Vol] 31.0 mmol/L 21.0-32.0 [facility] Work Phone: Urea nitrogen/Creatinine [Mass ratio] 7.4 mg/mg 10-20 [facility] Work Phone: No Panel Informationon 10-27 Estimated GFR (MDRD) Amer 143 mL/min >60 [facility] Work Phone: Comment on above: GFR Calc Estimated GFR (MDRD) Non-Af Amer 118 mL/min >60 [facility] Work Phone: [phone] Comment on above: Non- GFR Calc Serum or plasma calcium rajni urement (mass/volume)on 10-27-2021 Calcium [Mass/Vol] 7.1 mg/dL 8.5-10.1 [facility] Work Phone: [phone] Serum or plasma creatinine m easurement (mass/volume)on 10-27-2021 Creatinine [Mass/Vol] 0.54 mg/dL 0.55-1.02 [facility] Work Phone: [phone] Comment on above: The validity of the calculated GFR & GFRAA in patients over 70 years has not been determined. Clinical correlation is essential. Serum or plasma urea nitroge n measurement (mass/volume)on 10-27-2021 Urea nitrogen [Mass/Vol] 4 mg/dL 7-18 [facility] Work Phone: Thin prep Papanicolaou smear with manual screeningon 10-27-2021 Thin prep Papanicolaou smear with manual screening 7 5-15 [facility] Work Phone: Basophil percentageon 2021 Chloride [Moles/Vol] 95 mmol/L 98-107 [facility] Work Phone: Glucose [Mass/Vol] 90 mg/dL 74-106 [facility] Work Phone: [phone] Potassium [Moles/Vol] 3.4 mmol/L 3.5-5.1 [facility] Work Phone: [phone] Sodium [Moles/Vol] 130 mmol/L 136-145 [facility] Work Phone: [phone] WBC (Bld) [#/Vol] 12.7 10*3/uL 4.4-11.0 [facility] [place] Work Phone: Blood erythrocytes count (nu mber/volume)on 10-24-2021 RBC (Bld) [#/Vol] 2.63 10*6/uL 4.2-5.4 [facility] [place] Work Phone: Blood hemoglobin measurement (mass/volume)on 10-24-2021 Hemoglobin (Bld) [Mass/Vol] 8.3 g/dL 12.0-15.0 [facility] Work Phone: [phone] Blood platelet mean volumeon 10-24-2021 Platelet mean volume (Bld) [Entitic vol] 9.4 fL 6.2-12.0 [facility] Work Phone: Determination of erythrocyte mean corpuscular volume (MCV)on 10-24-2021 MCV (RBC) [Entitic vol] 93.9 fL 81-99 [facility] Work Phone: [phone] Hematocrit Auto (Bld) [Volum e fraction]on 10-24-2021 Hematocrit (Bld) [Volume fraction] 24.7 % 37-47 [facility] Work Phone: [phone] Laboratory - Chemistry and C hemistry - challengeon 10-24-2021 CO2 [Moles/Vol] 27.0 mmol/L 21.0-32.0 [facility] Work Phone: [phone] Urea nitrogen/Creatinine [Mass ratio] 25.4 mg/mg 10-20 [facility] Work Phone: [phone] Laboratory - Hematology and Cell countson 10-24-2021 Erythrocyte distribution width (RBC) [Entitic vol] 47.5 fL 35.1-43.9 [facility] Work Phone: [phone] Erythrocyte distribution width (RBC) [Ratio] 13.9 % 11.6-14.6 [facility] Work Phone: [phone] MCH (RBC) [Entitic mass] 31.6 pg 27.0-32.0 [facility] Work Phone: [phone] MCHC Auto (RBC) [Mass/Vol]on 10-24-2021 MCHC (RBC) [Mass/Vol] 33.6 g/dL 32-36 [facility] Work Phone: No Panel Informationon 10-24 Estimated GFR (MDRD) Amer 230 mL/min >60 [facility] Work Phone: Comment on above: GFR Calc Estimated GFR (MDRD) Non-Af Amer 190 mL/min >60 [facility] Work Phone: Comment on above: Non- GFR Calc Platelets bldon 10-24-2021 Platelets (Bld) [#/Vol] 529 10*3/uL 150-450 [facility] Work Phone: Serum or plasma calcium rajni urement (mass/volume)on 10-24-2021 Calcium [Mass/Vol] 7.9 mg/dL 8.5-10.1 [facility] Work Phone: Serum or plasma creatinine m easurement (mass/volume)on 10-24-2021 Creatinine [Mass/Vol] 0.35 mg/dL 0.55-1.02 [facility] Work Phone: Comment on above: The validity of the calculated GFR & GFRAA in patients over 70 years has not been determined. Clinical correlation is essential. Serum or plasma urea nitroge n measurement (mass/volume)on 10-24-2021 Urea nitrogen [Mass/Vol] 9 mg/dL 7-18 [facility] Work Phone: Thin prep Papanicolaou smear with manual screeningon 10-24-2021 Thin prep Papanicolaou smear with manual screening 8 5-15 [facility] Work Phone: CNPNon 10-20-2021 CNPN Normal [facility] ALLIED HEALTHon 10-17-2021 ALLIED HEALTH Normal [facility] Basic metabolic 2000 panelon 10-17-2021 Anion gap [Moles/Vol] 12 mmol/L Normal 9-18 [facility] Comment on above: Order Comment: Speci men Type: BLOOD SPECIMENOrdering Facility: [facility] Address: [address] [place] [address] Performed By: #### 2 4321-2 ####[facility] LABORATORYCLIA [id number] [place] [address] [place] Calcium [Mass/Vol] 6.5 mg/dL Low 8.5-10.2 [facility] Comment on above: Order Comment: Speci men Type: BLOOD SPECIMENOrdering Facility: [facility] Address: [address] [place] [address] Performed By: #### 2 4321-2 ####[facility] LABORATORYCLIA [id number] [place] [address] [place] Chloride [Moles/Vol] 95 mmol/L Low 97-105 [facility] Comment on above: Order Comment: Speci men Type: BLOOD SPECIMENOrdering Facility: [facility] Address: [address] [place] [address] Performed By: #### 2 4321-2 ####[facility] LABORATORYCLIA [id number] [address] [place] CO2 [Moles/Vol] 25 mmol/L Normal 22-30 [facility] Comment on above: Order Comment: Speci men Type: BLOOD SPECIMENOrdering Facility: [facility] Address: [address] [place] [address] Performed By: #### 2 4321-2 ####[facility] LABORATORYCLIA [id number] [address] [place] Creatinine [Mass/Vol] 0.44 mg/dL Low 0.58-0.96 [facility] Comment on above: Order Comment: Speci men Type: BLOOD SPECIMENOrdering Facility: [facility] Address: [address] [place] [address] Performed By: #### 2 4321-2 ####[facility] LABORATORYCLIA [id number] [address] [place] ESTIMATED GLOMERULAR FILTRATION RATE 102 mL/min/1.73m??? Normal >=60 [facility] Comment on above: Order Comment: Sharath lozano Type: BLOOD SPECIMENOrdering Facility: [facility] Address: [address] [id number] Result Comment: Lulu mated Glomerular Filtration Rate (eGFR) is calculated using the 2020 CKD-EPI creatinine equation. This equation utilizes serum creatinine, sex, and age as parameters. The creatinine assay has traceable calibration to isotope dilution-mass spectrometry. Refer to KDIGO guidelines for clinical interpretation. In patients with unstable renal function, e.g. those with acute kidney injury, the eGFR may not accurately reflect actual GFR. Performed By: #### 2 4321-2 ####[facility] LABORATORYCLIA [id number] [place] [address] [place] Glucose [Mass/Vol] 122 mg/dL High 74-99 [facility] Comment on above: Order Comment: Sharath lozano Type: BLOOD SPECIMENOrdering Facility: [facility] Address: [address] [place] [address] Result Comment: The [place] [employer] (ADA) provides guidance for cutoff values for fasting glucose and random glucose. The ADA defines fasting as no caloric intake for at least 8 hours. Fasting plasma glucose results between 100 to 125 mg/dL indicate increased risk for diabetes (prediabetes).Fasting plasma glucose results greater than or equal to 126 mg/dL meet the criteria for diagnosis of diabetes. In the absence of unequivocal hyperglycemia, results should be confirmed by repeat testing. In a patient with classic symptoms of hyperglycemia or hyperglycemic crisis, random plasma glucose results greater than or equal to 200 mg/dL meet the criteria for diagnosis of diabetes.Reference: Standards of Medical Care in Diabetes 2016, [place] [employer]. Diabetes Care. 2016.39(Suppl 1). Performed By: #### 2 4321-2 ####[facility] LABORATORYCLIA [id number] [place] [address] [place] Potassium [Moles/Vol] 3.7 mmol/L Normal 3.7-5.1 [facility] Comment on above: Order Comment: Sharath lozano Type: BLOOD SPECIMENOrdering Facility: [facility] Address: [address] Performed By: #### 2 4321-2 ####[facility] LABORATORYCLIA [id number] [address] [place] Sodium [Moles/Vol] 132 mmol/L Low 136-144 [facility] Comment on above: Order Comment: Speci men Type: BLOOD SPECIMENOrdering Facility: [facility] Address: [address] [place] [address] Performed By: #### 2 4321-2 ####[facility] LABORATORYCLIA [id number] [address] [place] Urea nitrogen [Mass/Vol] 10 mg/dL Normal 7-21 [facility] Comment on above: Order Comment: Speci men Type: BLOOD SPECIMENOrdering Facility: [facility] Address: [address] [place] [address] Performed By: #### 2 4321-2 ####[facility] LABORATORYCLIA [id number] [address] [place] CASE MANAGEMon 10-17-2021 CASE MANAGEM Normal [facility] CASE MANAGEM Normal [facility] CBC panel Auto (Bld)on 10-17 Erythrocyte distribution width (RBC) [Ratio] 13.6 % Normal 11.5-15.0 [facility] Comment on above: Order Comment: Speci men Type: BLOOD SPECIMENOrdering Facility: [facility] Address: [address] [place] [address] Performed By: #### 5 8410-2 ####[facility] LABORATORYCLIA [id number] [address] [place] Hematocrit (Bld) [Volume fraction] 25.2 % Low 36.0-46.0 [facility] Comment on above: Order Comment: Speci men Type: BLOOD SPECIMENOrdering Facility: [facility] Address: [address] [place] [address] Performed By: #### 5 8410-2 ####[facility] LABORATORYCLIA [id number] [address] [place] Hemoglobin (Bld) [Mass/Vol] 8.6 g/dL Low 11.5-15.5 [facility] Comment on above: Order Comment: Speci men Type: BLOOD SPECIMENOrdering Facility: [facility] Address: [address] [place] [address] Performed By: #### 5 8410-2 ####[facility] LABORATORYCLIA [id number] [address] MCH (RBC) [Entitic mass] 32.2 pg Normal 26.0-34.0 [facility] Comment on above: Order Comment: Speci men Type: BLOOD SPECIMENOrdering Facility: [facility] Address: [address] [place] [address] Performed By: #### 5 8410-2 ####[facility] LABORATORYCLIA [id number] [address] [facility] MCHC (RBC) [Mass/Vol] 34.1 g/dL Normal 30.5-36.0 [facility] Comment on above: Order Comment: Speci men Type: BLOOD SPECIMENOrdering Facility: [facility] Address: [address] [place] [address] Performed By: #### 5 8410-2 ####[facility] LABORATORYCLIA [id number] [address] MCV (RBC) [Entitic vol] 94.4 fL Normal 80.0-100.0 [facility] Comment on above: Order Comment: Speci men Type: BLOOD SPECIMENOrdering Facility: [facility] Address: [address] [place] [address] Performed By: #### 5 8410-2 ####[facility] LABORATORYCLIA [id number] [address] Nucleated RBC (Bld) [#/Vol] 10*3/uL Normal <0.01 [facility] Comment on above: Order Comment: Speci men Type: BLOOD SPECIMENOrdering Facility: [facility] Address: [address] [place] [address] Performed By: #### 5 8410-2 ####[facility] LABORATORYCLIA [id number] [address] [place] Platelet mean volume (Bld) [Entitic vol] 8.9 fL Low 9.0-12.7 [facility] Comment on above: Order Comment: Speci men Type: BLOOD SPECIMENOrdering Facility: [facility] Address: [address] [place] [address] Performed By: #### 5 8410-2 ####[facility] LABORATORYCLIA [id number] [address] [place] Platelets (Bld) [#/Vol] 519 10*3/uL High 150-400 [facility] Comment on above: Order Comment: Speci men Type: BLOOD SPECIMENOrdering Facility: [facility] Address: [address] [place] [address] Performed By: #### 5 8410-2 ####[facility] LABORATORYCLIA [id number] [place] [address] [place] RBC (Bld) [#/Vol] 2.67 10*6/uL Low 3.90-5.20 [facility] Comment on above: Order Comment: Speci men Type: BLOOD SPECIMENOrdering Facility: [facility] Address: [address] [place] [address] Performed By: #### 5 8410-2 ####[facility] LABORATORYCLIA [id number] [place] [address] [place] WBC (Bld) [#/Vol] 19.03 10*3/uL High 3.70-11.00 [facility] Comment on above: Order Comment: Speci men Type: BLOOD SPECIMENOrdering Facility: [facility] Address: [address] [place] [address] Performed By: #### 5 8410-2 ####[facility] LABORATORYCLIA [id number] [address] OF [place] CNDSon 10-17-2021 CNDS Normal [facility] SARS-CoV-2 RNA Resp Ql LEONA+p robeon 10-17-2021 SARS-CoV-2 (COVID-19) RNA LEONA+probe Ql (Resp) COVID 19 RESULT: SARS-CoV-2 (Agent of COVID-19) Not Detected by RT-PCR or equivalent method. This test has been authorized by FDA under an Emergency Use Authorization (EUA). Normal [facility] Comment on above: Performed By: #### 9 4500-6 ####[facility] LABORATORYCLIA [id number] [place] [address] [place] XR CHEST 1V FRONTALon 2021 XR CHEST 1V FRONTAL Normal [facility] Basic metabolic 2000 panelon 10-16-2021 Anion gap [Moles/Vol] 11 mmol/L Normal 9-18 [facility] Comment on above: Order Comment: Speci men Type: BLOOD SPECIMENOrdering Facility: [facility] Address: [address] [place] [address] Performed By: #### 2 4321-2 ####[facility] LABORATORYCLIA [id number] [place] [address] [place] Calcium [Mass/Vol] 7.0 mg/dL Low 8.5-10.2 [facility] Comment on above: Order Comment: Speci men Type: BLOOD SPECIMENOrdering Facility: [facility] Address: [address] [place] [address] Performed By: #### 2 4321-2 ####[facility] LABORATORYCLIA [id number] [place] [address] [place] Chloride [Moles/Vol] 95 mmol/L Low 97-105 [facility] Comment on above: Order Comment: Speci men Type: BLOOD SPECIMENOrdering Facility: [facility] Address: [address] [place] [address] Performed By: #### 2 4321-2 ####[facility] LABORATORYCLIA [id number] [place] [address] [place] CO2 [Moles/Vol] 26 mmol/L Normal 22-30 [facility] Comment on above: Order Comment: Speci men Type: BLOOD SPECIMENOrdering Facility: [facility] Address: [address] [place] [address] Performed By: #### 2 4321-2 ####[facility]SELAERCLIA [id number] [address] STATES OF [facility] Creatinine [Mass/Vol] 0.38 mg/dL Low 0.58-0.96 [facility] Comment on above: Order Comment: Speci men Type: BLOOD SPECIMENOrdering Facility: [facility] Address: [address] [place] [address] Performed By: #### 2 4321-2 ####[facility] [id number] [address] ESTIMATED GLOMERULAR FILTRATION RATE 105 mL/min/1.73m??? Normal >=60 [facility] Comment on above: Order Comment: Speci men Type: BLOOD SPECIMENOrdering Facility: [facility] Address: [address] [place] [address] Result Comment: Lulu mated Glomerular Filtration Rate (eGFR) is calculated using the 2020 CKD-EPI creatinine equation. This equation utilizes serum creatinine, sex, and age as parameters. The creatinine assay has traceable calibration to isotope dilution-mass spectrometry. Refer to KDIGO guidelines for clinical interpretation. In patients with unstable renal function, e.g. those with acute kidney injury, the eGFR may not accurately reflect actual GFR. Performed By: #### 2 4321-2 ####[facility] LABORATORYIA [id number] [address] OF [facility] Glucose [Mass/Vol] 120 mg/dL High 74-99 [facility] Comment on above: Order Comment: Sharath lozano Type: BLOOD SPECIMENOrdering Facility: [facility] Address: [address] [place] [address] Result Comment: The [place] [employer] (ADA) provides guidance for cutoff values for fasting glucose and random glucose. The ADA defines fasting as no caloric intake for at least 8 hours. Fasting plasma glucose results between 100 to 125 mg/dL indicate increased risk for diabetes (prediabetes).Fasting plasma glucose results greater than or equal to 126 mg/dL meet the criteria for diagnosis of diabetes. In the absence of unequivocal hyperglycemia, results should be confirmed by repeat testing. In a patient with classic symptoms of hyperglycemia or hyperglycemic crisis, random plasma glucose results greater than or equal to 200 mg/dL meet the criteria for diagnosis of diabetes.Reference: Standards of Medical Care in Diabetes 2016, [place] [employer]. Diabetes Care. 2016.39(Suppl 1). Performed By: #### 2 4321-2 ####[facility] LABORATORYCLIA [id number] [address] STATES OF [facility] Potassium [Moles/Vol] 3.6 mmol/L Low 3.7-5.1 [facility] Comment on above: Order Comment: Sharath lozano Type: BLOOD SPECIMENOrdering Facility: [facility] Address: [address] [place] [address] Performed By: #### 2 4321-2 ####[facility] LABORATORYCLIA [id number] [address] STATES OF [facility] Sodium [Moles/Vol] 132 mmol/L Low 136-144 [facility] Comment on above: Order Comment: Sharath lozano Type: BLOOD SPECIMENOrdering Facility: [facility] Address: [address] [place] [address] Performed By: #### 2 4321-2 ####[facility] LABORATORYCLIA [id number] [address] STATES [facility] Urea nitrogen [Mass/Vol] 11 mg/dL Normal 7-21 [facility] Comment on above: Order Comment: Cathyi marta Type: BLOOD SPECIMENOrdering Facility: [facility] Address: [address] [place] [address] Performed By: #### 2 4321-2 ####[facility] LABORATORYCLIA [id number] [address] [place] CASE MANAGEMon 10-16-2021 CASE MANAGEM Normal [facility] CASE MANAGEM Normal [facility] CBC panel Auto (Bld)on 10-16 Erythrocyte distribution width (RBC) [Ratio] 13.6 % Normal 11.5-15.0 [facility] Comment on above: Order Comment: Speci men Type: BLOOD SPECIMENOrdering Facility: [facility] Address: [address] [place] [address] Performed By: #### 5 8410-2 ####[facility] LABORATORYCLIA [id number] [address] Hematocrit (Bld) [Volume fraction] 25.6 % Low 36.0-46.0 [facility] Comment on above: Order Comment: Speci men Type: BLOOD SPECIMENOrdering Facility: [facility] Address: [address] [place] [address] Performed By: #### 5 8410-2 ####[facility]ORATORYCLIA [id number] [address] [place] Hemoglobin (Bld) [Mass/Vol] 8.7 g/dL Low 11.5-15.5 [facility] Comment on above: Order Comment: Speci men Type: BLOOD SPECIMENOrdering Facility: [facility] Address: [address] [place] [address] Performed By: #### 5 8410-2 ####[facility]ORATORYCLIA [id number] [address] [place] MCH (RBC) [Entitic mass] 32.0 pg Normal 26.0-34.0 [facility] Comment on above: Order Comment: Speci men Type: BLOOD SPECIMENOrdering Facility: [facility] Address: [address] [place] [address] Performed By: #### 5 8410-2 ####[facility] LABORATORYCLIA [id number] [address] MCHC (RBC) [Mass/Vol] 34.0 g/dL Normal 30.5-36.0 [facility] Comment on above: Order Comment: Speci men Type: BLOOD SPECIMENOrdering Facility: [facility] Address: [address] [place] [address] Performed By: #### 5 8410-2 ####[facility]ORATORYCLIA [id number] [address] MCV (RBC) [Entitic vol] 94.1 fL Normal 80.0-100.0 [facility] Comment on above: Order Comment: Speci men Type: BLOOD SPECIMENOrdering Facility: [facility] Address: [address] [place] [address] Performed By: #### 5 8410-2 ####[facility]ORATORYCLIA [id number] [address] Nucleated RBC (Bld) [#/Vol] 10*3/uL Normal <0.01 [facility] Comment on above: Order Comment: Speci men Type: BLOOD SPECIMENOrdering Facility: [facility] Address: [address] [place] [address] Performed By: #### 5 8410-2 ####[facility] LABORATORYCLIA [id number] [address] Platelet mean volume (Bld) [Entitic vol] 8.8 fL Low 9.0-12.7 [facility] Comment on above: Order Comment: Speci men Type: BLOOD SPECIMENOrdering Facility: [facility] Address: [address] [place] [address] Performed By: #### 5 8410-2 ####[facility]ORATORYCLIA [id number] [address] Platelets (Bld) [#/Vol] 465 10*3/uL High 150-400 [facility] Comment on above: Order Comment: Speci men Type: BLOOD SPECIMENOrdering Facility: [facility] Address: [address] [place], [place] [address] Performed By: #### 5 8410-2 ####[facility]ORATORYCLIA [id number] [address] RBC (Bld) [#/Vol] 2.72 10*6/uL Low 3.90-5.20 [facility] Comment on above: Order Comment: Speci men Type: BLOOD SPECIMENOrdering Facility: [facility] Address: [address] [place] [address] Performed By: #### 5 8410-2 ####[facility]ORATORYCLIA [id number] [place] [address] [place] WBC (Bld) [#/Vol] 17.77 10*3/uL High 3.70-11.00 [facility] Comment on above: Order Comment: Speci men Type: BLOOD SPECIMENOrdering Facility: [facility] Address: [address] [place] [address] Performed By: #### 5 8410-2 ####[facility]ORATORYCLIA [id number] [address] OF [facility] CONSULT PROGon 10-16-2021 CONSULT PROG Normal [facility] THERAPY NTon 10-16-2021 THERAPY NT Normal [facility] THERAPY NT Normal [facility] Basic metabolic 2000 panelon 10-15-2021 Anion gap [Moles/Vol] 11 mmol/L Normal 9-18 [facility] Comment on above: Order Comment: Speci men Type: BLOOD SPECIMENOrdering Facility: [facility] Address: [address] [place] [address] Performed By: #### 2 4321-2 ####[facility]ORATORYCLIA [id number] [place] [address] [place] Calcium [Mass/Vol] 6.8 mg/dL Low 8.5-10.2 [facility] Comment on above: Order Comment: Speci men Type: BLOOD SPECIMENOrdering Facility: [facility] Address: [address] [place] [address] Performed By: #### 2 4321-2 ####[facility]ORATORYCLIA [id number] [place] [address] [place] Chloride [Moles/Vol] 97 mmol/L Normal 97-105 [facility] Comment on above: Order Comment: Speci men Type: BLOOD SPECIMENOrdering Facility: [facility] Address: [address] [place] [address] Performed By: #### 2 4321-2 ####[facility]ORATORYCLIA [id number] [address] [place] CO2 [Moles/Vol] 26 mmol/L Normal 22-30 [facility] Comment on above: Order Comment: Speci men Type: BLOOD SPECIMENOrdering Facility: [facility] Address: [address] [place] [address] Performed By: #### 2 4321-2 ####[facility]ORATORYCLIA [id number] [address] [place] Creatinine [Mass/Vol] 0.44 mg/dL Low 0.58-0.96 [facility] Comment on above: Order Comment: Speci men Type: BLOOD SPECIMENOrdering Facility: [facility] Address: [address] [place] [address] Performed By: #### 2 4321-2 ####[facility]ORATORYCLIA [id number] [address] ESTIMATED GLOMERULAR FILTRATION RATE 102 mL/min/1.73m??? Normal >=60 [facility] Comment on above: Order Comment: Speci men Type: BLOOD SPECIMENOrdering Facility: [facility] Address: [address] [place] [address] Result Comment: Lulu mated Glomerular Filtration Rate (eGFR) is calculated using the 2020 CKD-EPI creatinine equation. This equation utilizes serum creatinine, sex, and age as parameters. The creatinine assay has traceable calibration to isotope dilution-mass spectrometry. Refer to KDIGO guidelines for clinical interpretation. In patients with unstable renal function, e.g. those with acute kidney injury, the eGFR may not accurately reflect actual GFR. Performed By: #### 2 4321-2 ####[facility]ORATORYCLIA [id number] [address] [place] Glucose [Mass/Vol] 111 mg/dL High 74-99 [facility] Comment on above: Order Comment: Speci men Type: BLOOD SPECIMENOrdering Facility: [facility] Address: [address] Result Comment: The [place] Diabetes [employer] (ADA) provides guidance for cutoff values for fasting glucose and random glucose. The ADA defines fasting as no caloric intake for at least 8 hours. Fasting plasma glucose results between 100 to 125 mg/dL indicate increased risk for diabetes (prediabetes).Fasting plasma glucose results greater than or equal to 126 mg/dL meet the criteria for diagnosis of diabetes. In the absence of unequivocal hyperglycemia, results should be confirmed by repeat testing. In a patient with classic symptoms of hyperglycemia or hyperglycemic crisis, random plasma glucose results greater than or equal to 200 mg/dL meet the criteria for diagnosis of diabetes.Reference: Standards of Medical Care in Diabetes 2016, [place] [employer]. Diabetes Care. 2016.39(Suppl 1). Performed By: #### 2 4321-2 ####[facility]ORATORYCLIA [id number] [place] [address] [place] Potassium [Moles/Vol] 3.5 mmol/L Low 3.7-5.1 [facility] Comment on above: Order Comment: Sharath marta Type: BLOOD SPECIMENOrdering Facility: [facility] Address: [address] [place] [address] Performed By: #### 2 4321-2 ####[facility] LABORATORYCLIA [id number] [place] [address] [place] Sodium [Moles/Vol] 134 mmol/L Low 136-144 [facility] Comment on above: Order Comment: Speci men Type: BLOOD SPECIMENOrdering Facility: [facility] Address: [address] Performed By: #### 2 4321-2 ####[facility] LABORATORYCLIA [id number] [place] [address] [place] Urea nitrogen [Mass/Vol] 11 mg/dL Normal 7-21 [facility] Comment on above: Order Comment: Cathyi men Type: BLOOD SPECIMENOrdering Facility: [facility] Address: [address] Performed By: #### 2 4321-2 ####[facility]ORATORYCLIA [id number] [address] CBC panel Auto (Bld)on 10-15 Erythrocyte distribution width (RBC) [Ratio] 13.6 % Normal 11.5-15.0 [facility] Comment on above: Order Comment: Speci men Type: BLOOD SPECIMENOrdering Facility: [facility] Address: [address] [place] [address] Performed By: #### 5 8410-2 ####[facility]ORATORYCLIA [id number] [address] Hematocrit (Bld) [Volume fraction] 23.5 % Low 36.0-46.0 [facility] Comment on above: Order Comment: Speci men Type: BLOOD SPECIMENOrdering Facility: [facility] Address: [address] [place] [address] Performed By: #### 5 8410-2 ####[facility]ORATORYCLIA [id number] [address] Hemoglobin (Bld) [Mass/Vol] 7.9 g/dL Low 11.5-15.5 [facility] Comment on above: Order Comment: Speci men Type: BLOOD SPECIMENOrdering Facility: [facility] Address: [address] [place] [address] Performed By: #### 5 8410-2 ####[facility]ORATORYCLIA [id number] [address] MCH (RBC) [Entitic mass] 32.6 pg Normal 26.0-34.0 [facility] Comment on above: Order Comment: Speci men Type: BLOOD SPECIMENOrdering Facility: [facility] Address: [address] [place] [address] Performed By: #### 5 8410-2 ####[facility]ORATORYCLIA [id number] [address] MCHC (RBC) [Mass/Vol] 33.6 g/dL Normal 30.5-36.0 [facility] Comment on above: Order Comment: Speci men Type: BLOOD SPECIMENOrdering Facility: [facility] Address: [address] [place] [address] Performed By: #### 5 8410-2 ####[facility]ORATORYCLIA [id number] [address] [place] MCV (RBC) [Entitic vol] 97.1 fL Normal 80.0-100.0 [facility] Comment on above: Order Comment: Speci men Type: BLOOD SPECIMENOrdering Facility: [facility] Address: [address] [place] [address] Performed By: #### 5 8410-2 ####[facility]ORATORYCLIA [id number] [address] [place] Nucleated RBC (Bld) [#/Vol] 10*3/uL Normal <0.01 [facility] Comment on above: Order Comment: Speci men Type: BLOOD SPECIMENOrdering Facility: [facility] Address: [address] [place] [address] Performed By: #### 5 8410-2 ####[facility]ORATORYCLIA [id number] [address] [place] Platelet mean volume (Bld) [Entitic vol] 8.9 fL Low 9.0-12.7 [facility] Comment on above: Order Comment: Speci men Type: BLOOD SPECIMENOrdering Facility: [facility] Address: [address] [place] [address] Performed By: #### 5 8410-2 ####[facility]ORATORYCLIA [id number] [address] [place] Platelets (Bld) [#/Vol] 388 10*3/uL Normal 150-400 [facility] Comment on above: Order Comment: Speci men Type: BLOOD SPECIMENOrdering Facility: [facility] Address: [address] [place] [address] Performed By: #### 5 8410-2 ####[facility]ORATORYCLIA [id number] [address] STATES OF [facility] RBC (Bld) [#/Vol] 2.42 10*6/uL Low 3.90-5.20 [facility] Comment on above: Order Comment: Speci men Type: BLOOD SPECIMENOrdering Facility: [facility] Address: [address] [place] [address] Performed By: #### 5 8410-2 ####[facility] LABORATORYCLIA [id number] [address] OF [facility] WBC (Bld) [#/Vol] 16.58 10*3/uL High 3.70-11.00 [facility] Comment on above: Order Comment: Speci men Type: BLOOD SPECIMENOrdering Facility: [facility] Address: [address] [place] [address] Performed By: #### 5 8410-2 ####[facility]ORATORYCLIA [id number] [address] THERAPY NTon 10-15-2021 THERAPY NT Normal [facility] Urinalysis complete panel (U )on 10-15-2021 Bacteria LM.HPF (Urine sed) [#/Area] Few Abnormal None Seen [facility] Comment on above: Order Comment: Speci men Type: URINE SPECIMENOrdering Facility: [facility] Address: [address] [place] [address] Performed By: #### 2 4356-8 ####[facility]ORATORYCLIA [id number] [address] Bilirubin Ql (U) Negative Normal Negative [facility] Comment on above: Order Comment: Speci men Type: URINE SPECIMENOrdering Facility: [facility] Address: [address] [place] [address] Performed By: #### 2 4356-8 ####[facility]ORATORYCLIA [id number] [address] Clarity (Unsp spec) Clear Normal Clear [facility] Comment on above: Order Comment: Speci men Type: URINE SPECIMENOrdering Facility: [facility] Address: [address] [place] [address] Performed By: #### 2 4356-8 ####[facility] LABORATORYCLIA [id number] [address] OF [facility] Color (U) Light Yellow Normal yellow [facility] Comment on above: Order Comment: Speci men Type: URINE SPECIMENOrdering Facility: [facility] Address: [address] [place] [address] Performed By: #### 2 4356-8 ####[facility]ORATORYCLIA [id number] [address] Epithelial cells LM.HPF (Urine sed) [#/Area] Few Normal [facility] Comment on above: Order Comment: Speci men Type: URINE SPECIMENOrdering Facility: [facility] Address: [address] [place] [address] Result Comment: Few Performed By: #### 2 4356-8 ####[facility]ORATORYCLIA [id number] [address] Glucose Test strip (U) [Mass/Vol] Negative Normal Negative [facility] Comment on above: Order Comment: Speci men Type: URINE SPECIMENOrdering Facility: [facility] Address: [address] [place] [address] Performed By: #### 2 4356-8 ####[facility]ORATORYCLIA [id number] [address] Hemoglobin Ql (U) Negative Normal Negative [facility] Comment on above: Order Comment: Speci men Type: URINE SPECIMENOrdering Facility: [facility] Address: [address] [place] [address] Performed By: #### 2 4356-8 ####[facility] LABORATORYCLIA [id number] [address] [place] Ketones Ql (U) Negative Normal Negative [facility] Comment on above: Order Comment: Speci men Type: URINE SPECIMENOrdering Facility: [facility] Address: [address] [place] [address] Performed By: #### 2 4356-8 ####[facility]ORATORYCLIA [id number] [address] Leukocyte esterase Test strip Ql (U) 500 Karson/mL Abnormal Negative [facility] Comment on above: Order Comment: Speci men Type: URINE SPECIMENOrdering Facility: [facility] Address: [address] [place] [address] Performed By: #### 2 4356-8 ####[facility]ORATORYCLIA [id number] [address] Nitrite Ql (U) 1+ Abnormal Negative [facility] Comment on above: Order Comment: Speci men Type: URINE SPECIMENOrdering Facility: [facility] Address: [address] [place] [address] Performed By: #### 2 4356-8 ####[facility]ORATORYCLIA [id number] [address] pH (U) 7.5 [pH] Normal 5.0-8.0 [facility] Comment on above: Order Comment: Speci men Type: URINE SPECIMENOrdering Facility: [facility] Address: [address] [place] [address] Performed By: #### 2 4356-8 ####[facility] LABORATORYCLIA [id number] [address] Protein (U) [Mass/Vol] Negative Normal Negative [facility] Comment on above: Order Comment: Speci men Type: URINE SPECIMENOrdering Facility: [facility] Address: [address] [place] [address] Performed By: #### 2 4356-8 ####[facility] LABORATORYCLIA [id number] [address] [place] RBC LM.HPF (Urine sed) [#/Area] 6-10 /HPF Abnormal 0-3 /HPF [facility] Comment on above: Order Comment: Speci men Type: URINE SPECIMENOrdering Facility: [facility] Address: [address] [place] [address] Performed By: #### 2 4356-8 ####[facility] LABORATORYCLIA [id number] [address] Specific gravity (U) [Rel density] 1.007 Normal 1.005-1.030 [facility] Comment on above: Order Comment: Speci men Type: URINE SPECIMENOrdering Facility: [facility] Address: [address] [place] [address] Performed By: #### 2 4356-8 ####[facility] LABORATORYCLIA [id number] [address] Urobilinogen Ql (U) Normal Normal Negative [facility] Comment on above: Order Comment: Speci men Type: URINE SPECIMENOrdering Facility: [facility] Address: [address] [place] [address] Performed By: #### 2 4356-8 ####[facility] LABORATORYCLIA [id number] [address] WBC LM.HPF (Urine sed) [#/Area] /[HPF] Abnormal 0-5 /HPF [facility] Comment on above: Order Comment: Speci men Type: URINE SPECIMENOrdering Facility: [facility] Address: [address] [place] [address] Performed By: #### 2 4356-8 ####[facility] LABORATORYCLIA [id number] [address] Urinalysis complete pnl Uron 10-15-2021 Urinalysis complete panel (U) Abnormal [facility] Comment on above: Order Comment: Speci men Type: URINE SPECIMENOrdering Facility: [facility] Address: [address] [place] [address] Performed By: #### 2 4356-8 ####[facility]SELAERCLIA [id number] [place] [address] [place] Basic metabolic 2000 panelon 10-14-2021 Anion gap [Moles/Vol] 11 mmol/L Normal 9-18 [facility] Comment on above: Order Comment: Speci men Type: BLOOD SPECIMENOrdering Facility: [facility] Address: [address] [place] [address] Performed By: #### 2 4321-2 ####[facility]ORATORYCLIA [id number] [place] [address] [place] Calcium [Mass/Vol] 7.1 mg/dL Low 8.5-10.2 [facility] Comment on above: Order Comment: Speci men Type: BLOOD SPECIMENOrdering Facility: [facility] Address: [address] [place] [address] Performed By: #### 2 4321-2 ####[facility] LABORATORYCLIA [id number] [address] [place] Chloride [Moles/Vol] 100 mmol/L Normal 97-105 [facility] Comment on above: Order Comment: Speci men Type: BLOOD SPECIMENOrdering Facility: [facility] Address: [address] [place] [address] Performed By: #### 2 4321-2 ####[facility]ATORYCLIA [id number] [place] [address] [place] CO2 [Moles/Vol] 25 mmol/L Normal 22-30 [facility] Comment on above: Order Comment: Speci men Type: BLOOD SPECIMENOrdering Facility: [facility] Address: [address] [place] [address] Performed By: #### 2 4321-2 ####[facility] LABORATORYCLIA [id number] [address] [place] Creatinine [Mass/Vol] 0.44 mg/dL Low 0.58-0.96 [facility] Comment on above: Order Comment: Speci men Type: BLOOD SPECIMENOrdering Facility: [facility] Address: [address] [address] Performed By: #### 2 4321-2 ####[facility]ITALIA [id number] [address] ESTIMATED GLOMERULAR FILTRATION RATE 102 mL/min/1.73m??? Normal >=60 [facility] Comment on above: Order Comment: Sharath lozano Type: BLOOD SPECIMENOrdering Facility: [facility] Address: [address] [place] [address] Result Comment: Lulu mated Glomerular Filtration Rate (eGFR) is calculated using the 2020 CKD-EPI creatinine equation. This equation utilizes serum creatinine, sex, and age as parameters. The creatinine assay has traceable calibration to isotope dilution-mass spectrometry. Refer to KDIGO guidelines for clinical interpretation. In patients with unstable renal function, e.g. those with acute kidney injury, the eGFR may not accurately reflect actual GFR. Performed By: #### 2 4321-2 ####[facility]PITALIA [id number] [address] [place] Glucose [Mass/Vol] 116 mg/dL High 74-99 [facility] Comment on above: Order Comment: Sharath lozano Type: BLOOD SPECIMENOrdering Facility: [facility] Address: [address] [place] [address] Result Comment: The [place] Diabetes [employer] (ADA) provides guidance for cutoff values for fasting glucose and random glucose. The ADA defines fasting as no caloric intake for at least 8 hours. Fasting plasma glucose results between 100 to 125 mg/dL indicate increased risk for diabetes (prediabetes).Fasting plasma glucose results greater than or equal to 126 mg/dL meet the criteria for diagnosis of diabetes. In the absence of unequivocal hyperglycemia, results should be confirmed by repeat testing. In a patient with classic symptoms of hyperglycemia or hyperglycemic crisis, random plasma glucose results greater than or equal to 200 mg/dL meet the criteria for diagnosis of diabetes.Reference: Standards of Medical Care in Diabetes 2016, [place] [employer]. Diabetes Care. 2016.39(Suppl 1). Performed By: #### 2 4321-2 ####[facility] LABORATORYIA [id number] [address] [place] Potassium [Moles/Vol] 3.8 mmol/L Normal 3.7-5.1 [facility] Comment on above: Order Comment: Speci men Type: BLOOD SPECIMENOrdering Facility: [facility] Address: [address] [place] [address] Performed By: #### 2 4321-2 ####[facility]ORATORYCLIA [id number] [address] [place] Sodium [Moles/Vol] 136 mmol/L Normal 136-144 [facility] Comment on above: Order Comment: Speci men Type: BLOOD SPECIMENOrdering Facility: [facility] Address: [address] [place] [address] Performed By: #### 2 4321-2 ####[facility] LABORATORYCLIA [id number] [address] STATES OF [facility] Urea nitrogen [Mass/Vol] 9 mg/dL Normal 7-21 [facility] Comment on above: Order Comment: Speci men Type: BLOOD SPECIMENOrdering Facility: [facility] Address: [address] [place] [address] Performed By: #### 2 4321-2 ####[facility] LABORATORYCLIA [id number] [address] [place] CBC panel Auto (Bld)on 10-14 Erythrocyte distribution width (RBC) [Ratio] 13.7 % Normal 11.5-15.0 [facility] Comment on above: Order Comment: Speci men Type: BLOOD SPECIMENOrdering Facility: [facility] Address: [address] [place] [address] Performed By: #### 5 8410-2 ####[facility] LABORATORYCLIA [id number] [address] [place] Hematocrit (Bld) [Volume fraction] 25.1 % Low 36.0-46.0 [facility] Comment on above: Order Comment: Speci men Type: BLOOD SPECIMENOrdering Facility: [facility] Address: [address] [address] Performed By: #### 5 8410-2 ####[facility]ORATORYCLIA [id number] [address] Hemoglobin (Bld) [Mass/Vol] 8.4 g/dL Low 11.5-15.5 [facility] Comment on above: Order Comment: Speci men Type: BLOOD SPECIMENOrdering Facility: [facility] Address: [address] [place] [address] Performed By: #### 5 8410-2 ####[facility] LABORATORYCLIA [id number] [address] MCH (RBC) [Entitic mass] 32.3 pg Normal 26.0-34.0 [facility] Comment on above: Order Comment: Speci men Type: BLOOD SPECIMENOrdering Facility: [facility] Address: [address] [place] [address] Performed By: #### 5 8410-2 ####[facility]ORATORYCLIA [id number] [address] MCHC (RBC) [Mass/Vol] 33.5 g/dL Normal 30.5-36.0 [facility] Comment on above: Order Comment: Speci men Type: BLOOD SPECIMENOrdering Facility: [facility] Address: [address] [place] [address] Performed By: #### 5 8410-2 ####[facility]ORATORYCLIA [id number] [address] MCV (RBC) [Entitic vol] 96.5 fL Normal 80.0-100.0 [facility] Comment on above: Order Comment: Speci men Type: BLOOD SPECIMENOrdering Facility: [facility] Address: [address] [place] [address] Performed By: #### 5 8410-2 ####[facility]ORATORYCLIA [id number] [address] Nucleated RBC (Bld) [#/Vol] 10*3/uL Normal <0.01 [facility] Comment on above: Order Comment: Speci men Type: BLOOD SPECIMENOrdering Facility: [facility] Address: [address] [place] [address] Performed By: #### 5 8410-2 ####[facility]ORATORYCLIA [id number] [address] [place] Platelet mean volume (Bld) [Entitic vol] 8.9 fL Low 9.0-12.7 [facility] Comment on above: Order Comment: Speci men Type: BLOOD SPECIMENOrdering Facility: [facility] Address: [address] [place] [address] Performed By: #### 5 8410-2 ####[facility]ORATORYCLIA [id number] [address] [place] Platelets (Bld) [#/Vol] 405 10*3/uL High 150-400 [facility] Comment on above: Order Comment: Speci men Type: BLOOD SPECIMENOrdering Facility: [facility] Address: [address] [place] [address] Performed By: #### 5 8410-2 ####[facility]ORATORYCLIA [id number] [address] [place] RBC (Bld) [#/Vol] 2.60 10*6/uL Low 3.90-5.20 [facility] Comment on above: Order Comment: Speci men Type: BLOOD SPECIMENOrdering Facility: [facility] Address: [address] [place], [place] [id number] Performed By: #### 5 8410-2 ####[facility]ORATORYCLIA [id number] [address] [place] WBC (Bld) [#/Vol] 16.86 10*3/uL High 3.70-11.00 [facility] Comment on above: Order Comment: Speci men Type: BLOOD SPECIMENOrdering Facility: [facility] Address: [address] [place] [address] Performed By: #### 5 8410-2 ####[facility]ORATORYCLIA [id number] [address] OF [facility] TSH SerPl-aCncon 10-14-2021 TSH Qn 1.610 m[IU]/L Normal 0.270-4.200 [facility] Comment on above: Order Comment: Speci men Type: BLOOD SPECIMENOrdering Facility: [facility] Address: [address] [place] [address] Performed By: #### 3 016-3 ####[facility]ORATORYCLIA [id number] [address] [place] Vit B12 SerPl-mCncon 022 Cobalamin (Vitamin B12) [Mass/Vol] 1299 pg/mL High 232-1,245 [facility] Comment on above: Order Comment: Speci men Type: BLOOD SPECIMENOrdering Facility: [facility] Address: [address] [place] [address] Performed By: #### 2 132-9 ####[facility]ORATORYCLIA [id number] [address] [place] ALLIED HEALTHon 10-13-2021 ALLIED HEALTH Normal [facility] ALLIED HEALTH Normal [facility] ALLIED HEALTH Normal [facility] Basic metabolic 2000 panelon 10-13-2021 Anion gap [Moles/Vol] 11 mmol/L Normal 9-18 [facility] Comment on above: Order Comment: Speci men Type: BLOOD SPECIMENOrdering Facility: [facility] Address: [address] [place] [address] Performed By: #### 2 4321-2 ####[facility]ORATORYCLIA [id number] [address] [place] Calcium [Mass/Vol] 7.3 mg/dL Low 8.5-10.2 [facility] Comment on above: Order Comment: Speci men Type: BLOOD SPECIMENOrdering Facility: [facility] Address: [address] [place] [address] Performed By: #### 2 4321-2 ####[facility]ORATORYCLIA [id number] [address] STATES OF [facility] Chloride [Moles/Vol] 99 mmol/L Normal 97-105 [facility] Comment on above: Order Comment: Speci men Type: BLOOD SPECIMENOrdering Facility: [facility] Address: [address] [place] [address] Performed By: #### 2 4321-2 ####[facility]ORATORYCLIA [id number] [address] OF [facility] CO2 [Moles/Vol] 24 mmol/L Normal 22-30 [facility] Comment on above: Order Comment: Speci men Type: BLOOD SPECIMENOrdering Facility: [facility] Address: [address] [place] [address] Performed By: #### 2 4321-2 ####[facility]ORATORYCLIA [id number] [address] Creatinine [Mass/Vol] 0.46 mg/dL Low 0.58-0.96 [facility] Comment on above: Order Comment: Speci men Type: BLOOD SPECIMENOrdering Facility: [facility] Address: [address] [place] [address] Performed By: #### 2 4321-2 ####[facility]ORATORYCLIA [id number] [address] ESTIMATED GLOMERULAR FILTRATION RATE 101 mL/min/1.73m??? Normal >=60 [facility] Comment on above: Order Comment: Speci men Type: BLOOD SPECIMENOrdering Facility: [facility] Address: [address] [place] [address] Result Comment: Lulu mated Glomerular Filtration Rate (eGFR) is calculated using the 2020 CKD-EPI creatinine equation. This equation utilizes serum creatinine, sex, and age as parameters. The creatinine assay has traceable calibration to isotope dilution-mass spectrometry. Refer to KDIGO guidelines for clinical interpretation. In patients with unstable renal function, e.g. those with acute kidney injury, the eGFR may not accurately reflect actual GFR. Performed By: #### 2 4321-2 ####[facility]ORATORYCLIA [id number] [place] [address] [place] Glucose [Mass/Vol] 121 mg/dL High 74-99 [facility] Comment on above: Order Comment: Speci men Type: BLOOD SPECIMENOrdering Facility: [facility] Address: [address] [place] [address] Result Comment: The [place] Diabetes Association (ADA) provides guidance for cutoff values for fasting glucose and random glucose. The ADA defines fasting as no caloric intake for at least 8 hours. Fasting plasma glucose results between 100 to 125 mg/dL indicate increased risk for diabetes (prediabetes).Fasting plasma glucose results greater than or equal to 126 mg/dL meet the criteria for diagnosis of diabetes. In the absence of unequivocal hyperglycemia, results should be confirmed by repeat testing. In a patient with classic symptoms of hyperglycemia or hyperglycemic crisis, random plasma glucose results greater than or equal to 200 mg/dL meet the criteria for diagnosis of diabetes.Reference: Standards of Medical Care in Diabetes 2016, [place] [employer]. Diabetes Care. 2016.39(Suppl 1). Performed By: #### 2 4321-2 ####[facility]ORATORYCLIA [id number] [place] [address] [place] Potassium [Moles/Vol] 3.6 mmol/L Low 3.7-5.1 [facility] Comment on above: Order Comment: Speci men Type: BLOOD SPECIMENOrdering Facility: [facility] Address: [address] [place] [address] Performed By: #### 2 4321-2 ####[facility]ORATORYCLIA [id number] [place] [address] [place] Sodium [Moles/Vol] 134 mmol/L Low 136-144 [facility] Comment on above: Order Comment: Speci men Type: BLOOD SPECIMENOrdering Facility: [facility] Address: [address] [place] [address] Performed By: #### 2 4321-2 ####[facility]ORATORYCLIA [id number] [place] [address] [place] Urea nitrogen [Mass/Vol] 9 mg/dL Normal 7-21 [facility] Comment on above: Order Comment: Speci men Type: BLOOD SPECIMENOrdering Facility: [facility] Address: [address] [place] [address] Performed By: #### 2 4321-2 ####[facility]ORATORYCLIA [id number] [address] [place] CASE MANAGEMon 10-13-2021 CASE MANAGEM Normal [facility] CBC panel Auto (Bld)on 10-13 Erythrocyte distribution width (RBC) [Ratio] 13.5 % Normal 11.5-15.0 [facility] Comment on above: Order Comment: Speci men Type: BLOOD SPECIMENOrdering Facility: [facility] Address: [address] [place] [address] Performed By: #### 5 8410-2 ####[facility]ORATORYCLIA [id number] [address] [place] Hematocrit (Bld) [Volume fraction] 25.6 % Low 36.0-46.0 [facility] Comment on above: Order Comment: Speci men Type: BLOOD SPECIMENOrdering Facility: [facility] Address: [address] [place] [address] Performed By: #### 5 8410-2 ####[facility]ORATORYCLIA [id number] [address] [place] Hemoglobin (Bld) [Mass/Vol] 8.4 g/dL Low 11.5-15.5 [facility] Comment on above: Order Comment: Speci men Type: BLOOD SPECIMENOrdering Facility: [facility] Address: [address] [place] [address] Performed By: #### 5 8410-2 ####[facility]ORATORYCLIA [id number] [place] [address] [place] MCH (RBC) [Entitic mass] 32.1 pg Normal 26.0-34.0 [facility] Comment on above: Order Comment: Speci men Type: BLOOD SPECIMENOrdering Facility: [facility] Address: [address] [place] [address] Performed By: #### 5 8410-2 ####[facility]ORATORYCLIA [id number] [address] MCHC (RBC) [Mass/Vol] 32.8 g/dL Normal 30.5-36.0 [facility] Comment on above: Order Comment: Speci men Type: BLOOD SPECIMENOrdering Facility: [facility] Address: [address] [place] [address] Performed By: #### 5 8410-2 ####[facility]ORATORYCLIA [id number] [address] MCV (RBC) [Entitic vol] 97.7 fL Normal 80.0-100.0 [facility] Comment on above: Order Comment: Speci men Type: BLOOD SPECIMENOrdering Facility: [facility] Address: [address] [place] [address] Performed By: #### 5 8410-2 ####[facility]ORATORYCLIA [id number] [address] Nucleated RBC (Bld) [#/Vol] 10*3/uL Normal <0.01 [facility] Comment on above: Order Comment: Speci men Type: BLOOD SPECIMENOrdering Facility: [facility] Address: [address] [place] [address] Performed By: #### 5 8410-2 ####[facility]ORATORYCLIA [id number] [address] Platelet mean volume (Bld) [Entitic vol] 9.4 fL Normal 9.0-12.7 [facility] Comment on above: Order Comment: Speci men Type: BLOOD SPECIMENOrdering Facility: [facility] Address: [address] [place] [address] Performed By: #### 5 8410-2 ####[facility]ORATORYCLIA [id number] [place] [address] [place] Platelets (Bld) [#/Vol] 387 10*3/uL Normal 150-400 [facility] Comment on above: Order Comment: Speci men Type: BLOOD SPECIMENOrdering Facility: [facility] Address: [address] [place] [address] Performed By: #### 5 8410-2 ####[facility]ORATORYCLIA [id number] [place] [address] [place] RBC (Bld) [#/Vol] 2.62 10*6/uL Low 3.90-5.20 [facility] Comment on above: Order Comment: Speci men Type: BLOOD SPECIMENOrdering Facility: [facility] Address: [address] [place] [address] Performed By: #### 5 8410-2 ####[facility]ORATORYCLIA [id number] [address] WBC (Bld) [#/Vol] 16.34 10*3/uL High 3.70-11.00 [facility] Comment on above: Order Comment: Speci men Type: BLOOD SPECIMENOrdering Facility: [facility] Address: [address] [place] [address] Performed By: #### 5 8410-2 ####[facility] LABORATORYCLIA [id number] [address] [place] CONSULTon 10-13-2021 CONSULT Normal [facility] NUTRITIONon 10-13-2021 NUTRITION Normal [facility] THERAPY NTon 10-13-2021 THERAPY NT Normal [facility] XR CHEST 1V FRONTALon 2021 XR CHEST 1V FRONTAL Normal [facility] XR CHEST 2V FRONTAL/LATon XR CHEST 2V FRONTAL/LAT Normal A [facility] ALLIED HEALTHon 10-12-2021 ALLIED HEALTH Normal [facility] Basic metabolic 2000 panelon 10-12-2021 Anion gap [Moles/Vol] 10 mmol/L Normal 9-18 [facility] Comment on above: Order Comment: Speci men Type: BLOOD SPECIMENOrdering Facility: [facility] Address: [address] [address] Performed By: #### 2 4321-2 ####[facility] LABORATORYCLIA [id number] [address] STATES OF [facility] Calcium [Mass/Vol] 7.2 mg/dL Low 8.5-10.2 [facility] Comment on above: Order Comment: Speci men Type: BLOOD SPECIMENOrdering Facility: [facility] Address: [address] [place] [address] Performed By: #### 2 4321-2 ####[facility] LABORATORYCLIA [id number] [address] OF [facility] Chloride [Moles/Vol] 95 mmol/L Low 97-105 [facility] Comment on above: Order Comment: Speci men Type: BLOOD SPECIMENOrdering Facility: [facility] Address: [address] [place] [address] Performed By: #### 2 4321-2 ####[facility]ORATORYCLIA [id number] [address] CO2 [Moles/Vol] 26 mmol/L Normal 22-30 [facility] Comment on above: Order Comment: Speci men Type: BLOOD SPECIMENOrdering Facility: [facility] Address: [address] [place] [address] Performed By: #### 2 4321-2 ####[facility] LABORATORYCLIA [id number] [address] [place] Creatinine [Mass/Vol] 0.38 mg/dL Low 0.58-0.96 [facility] Comment on above: Order Comment: Speci men Type: BLOOD SPECIMENOrdering Facility: [facility] Address: [address] [place] [address] Performed By: #### 2 4321-2 ####[facility] LABORATORYCLIA [id number] [place] [address] [place] ESTIMATED GLOMERULAR FILTRATION RATE 105 mL/min/1.73m??? Normal >=60 [facility] Comment on above: Order Comment: Sharath lozano Type: BLOOD SPECIMENOrdering Facility: [facility] Address: [address] [address] Result Comment: Lulu mated Glomerular Filtration Rate (eGFR) is calculated using the 2020 CKD-EPI creatinine equation. This equation utilizes serum creatinine, sex, and age as parameters. The creatinine assay has traceable calibration to isotope dilution-mass spectrometry. Refer to KDIGO guidelines for clinical interpretation. In patients with unstable renal function, e.g. those with acute kidney injury, the eGFR may not accurately reflect actual GFR. Performed By: #### 2 4321-2 ####[facility] LABORATORYCLIA [id number] [place] [address] [place] Glucose [Mass/Vol] 111 mg/dL High 74-99 [facility] Comment on above: Order Comment: Sharath lozano Type: BLOOD SPECIMENOrdering Facility: [facility] Address: [address] [address] Result Comment: The [place] Diabetes [employer] (ADA) provides guidance for cutoff values for fasting glucose and random glucose. The ADA defines fasting as no caloric intake for at least 8 hours. Fasting plasma glucose results between 100 to 125 mg/dL indicate increased risk for diabetes (prediabetes).Fasting plasma glucose results greater than or equal to 126 mg/dL meet the criteria for diagnosis of diabetes. In the absence of unequivocal hyperglycemia, results should be confirmed by repeat testing. In a patient with classic symptoms of hyperglycemia or hyperglycemic crisis, random plasma glucose results greater than or equal to 200 mg/dL meet the criteria for diagnosis of diabetes.Reference: Standards of Medical Care in Diabetes 2016, [place] [employer]. Diabetes Care. 2016.39(Suppl 1). Performed By: #### 2 4321-2 ####[facility] LABORATORYCLIA [id number] [place] [address] [place] Potassium [Moles/Vol] 3.4 mmol/L Low 3.7-5.1 [facility] Comment on above: Order Comment: Sharath lozano Type: BLOOD SPECIMENOrdering Facility: [facility] Address: [address] [address] Performed By: #### 2 4321-2 ####[facility] LABORATORYCLIA [id number] [address] STATES [facility] Sodium [Moles/Vol] 131 mmol/L Low 136-144 [facility] Comment on above: Order Comment: Speci men Type: BLOOD SPECIMENOrdering Facility: [facility] Address: [address] [place] [address] Performed By: #### 2 4321-2 ####[facility] LABORATORYCLIA [id number] [place] [address] [place] Urea nitrogen [Mass/Vol] 10 mg/dL Normal 7-21 [facility] Comment on above: Order Comment: Speci men Type: BLOOD SPECIMENOrdering Facility: [facility] Address: [address] [place] [address] Performed By: #### 2 4321-2 ####[facility] LABORATORYCLIA [id number] [address] [place] CASE MANAGEMon 10-12-2021 CASE MANAGEM Normal [facility] CBC panel Auto (Bld)on 10-12 Erythrocyte distribution width (RBC) [Ratio] 13.6 % Normal 11.5-15.0 [facility] Comment on above: Order Comment: Speci men Type: BLOOD SPECIMENOrdering Facility: [facility] Address: [address] [place] [address] Performed By: #### 5 8410-2 ####[facility] LABORATORYCLIA [id number] [address] [place] Hematocrit (Bld) [Volume fraction] 24.8 % Low 36.0-46.0 [facility] Comment on above: Order Comment: Speci men Type: BLOOD SPECIMENOrdering Facility: [facility] Address: [address] [place] [address] Performed By: #### 5 8410-2 ####[facility]ORATORYCLIA [id number] [address] Hemoglobin (Bld) [Mass/Vol] 8.6 g/dL Low 11.5-15.5 [facility] Comment on above: Order Comment: Speci men Type: BLOOD SPECIMENOrdering Facility: [facility] Address: [address] [place] [address] Performed By: #### 5 8410-2 ####[facility] LABORATORYCLIA [id number] [address] MCH (RBC) [Entitic mass] 32.8 pg Normal 26.0-34.0 [facility] Comment on above: Order Comment: Speci men Type: BLOOD SPECIMENOrdering Facility: [facility] Address: [address] [place] [address] Performed By: #### 5 8410-2 ####[facility]ORATORYCLIA [id number] [address] MCHC (RBC) [Mass/Vol] 34.7 g/dL Normal 30.5-36.0 [facility] Comment on above: Order Comment: Speci men Type: BLOOD SPECIMENOrdering Facility: [facility] Address: [address] [place] [address] Performed By: #### 5 8410-2 ####[facility]ORATORYCLIA [id number] [address] MCV (RBC) [Entitic vol] 94.7 fL Normal 80.0-100.0 [facility] Comment on above: Order Comment: Speci men Type: BLOOD SPECIMENOrdering Facility: [facility] Address: [address] [place] [address] Performed By: #### 5 8410-2 ####[facility]ORATORYCLIA [id number] [address] Nucleated RBC (Bld) [#/Vol] 10*3/uL Normal <0.01 [facility] Comment on above: Order Comment: Speci men Type: BLOOD SPECIMENOrdering Facility: [facility] Address: [address] Performed By: #### 5 8410-2 ####[facility]ORATORYCLIA [id number] [address] Platelet mean volume (Bld) [Entitic vol] 9.5 fL Normal 9.0-12.7 [facility] Comment on above: Order Comment: Speci men Type: BLOOD SPECIMENOrdering Facility: [facility] Address: [address] [place] [address] Performed By: #### 5 8410-2 ####[facility] LABORATORYCLIA [id number] [address] [place] Platelets (Bld) [#/Vol] 338 10*3/uL Normal 150-400 [facility] Comment on above: Order Comment: Speci men Type: BLOOD SPECIMENOrdering Facility: [facility] Address: [address] [place] [address] Performed By: #### 5 8410-2 ####[facility]ORATORYCLIA [id number] [address] [place] RBC (Bld) [#/Vol] 2.62 10*6/uL Low 3.90-5.20 [facility] Comment on above: Order Comment: Speci men Type: BLOOD SPECIMENOrdering Facility: [facility] Address: [address] [place] [address] Performed By: #### 5 8410-2 ####[facility] LABORATORYCLIA [id number] [address] [place] WBC (Bld) [#/Vol] 15.12 10*3/uL High 3.70-11.00 [facility] Comment on above: Order Comment: Speci men Type: BLOOD SPECIMENOrdering Facility: [facility] Address: [address] [place] [address] Performed By: #### 5 8410-2 ####[facility]ORATORYCLIA [id number] [address] CNPNon 10-12-2021 CNPN Normal [facility] THERAPY NTon 10-12-2021 THERAPY NT Normal [facility] XR CHEST 1V FRONTALon 2021 XR CHEST 1V FRONTAL Normal [facility] ALLIED HEALTHon 10-11-2021 ALLIED HEALTH Normal [facility] ALLIED HEALTH Normal [facility] ALLIED HEALTH Normal [facility] ALLIED HEALTH Normal [facility] ANES POSTPROC EVALon 022 ANES POSTPROC EVAL Normal [facility] Bacteria Bld Culton 10-12-19 22 Bacteria identified Cx Nom (Bld) CULTURE, BLOOD: No growth 5 days Normal [facility] Comment on above: Performed By: #### 6 00-7 ####[facility]ORATORYCLIA [id number] [place] [address] [place] Bacteria identified Cx Nom (Bld) CULTURE, BLOOD: No growth 5 days Normal [facility] Comment on above: Performed By: #### 6 00-7 ####[facility]ORATORYCLIA [id number] [place] [address] [place] Basic metabolic 2000 panelon 10-11-2021 Anion gap [Moles/Vol] 9 mmol/L Normal 9-18 [facility] Comment on above: Order Comment: Speci men Type: BLOOD SPECIMENOrdering Facility: [facility] Address: [address] [place] [address] Performed By: #### 2 4321-2 ####[facility]ORATORYCLIA [id number] [place] [address] [place] Calcium [Mass/Vol] 7.5 mg/dL Low 8.5-10.2 [facility] Comment on above: Order Comment: Speci men Type: BLOOD SPECIMENOrdering Facility: [facility] Address: [address] [place] [address] Performed By: #### 2 4321-2 ####[facility]ORATORYCLIA [id number] [place] [address] [place] Chloride [Moles/Vol] 94 mmol/L Low 97-105 [facility] Comment on above: Order Comment: Speci men Type: BLOOD SPECIMENOrdering Facility: [facility] Address: [address] [place] [address] Performed By: #### 2 4321-2 ####[facility]ORATORYCLIA [id number] [address] STATES OF [facility] CO2 [Moles/Vol] 27 mmol/L Normal 22-30 [facility] Comment on above: Order Comment: Speci men Type: BLOOD SPECIMENOrdering Facility: [facility] Address: [address] [place] [address] Performed By: #### 2 4321-2 ####[facility]SELAERCLIA [id number] [address] Creatinine [Mass/Vol] 0.46 mg/dL Low 0.58-0.96 [facility] Comment on above: Order Comment: Speci men Type: BLOOD SPECIMENOrdering Facility: [facility] Address: [address] [place] [address] Performed By: #### 2 4321-2 ####[facility]ORATORYCLIA [id number] [address] ESTIMATED GLOMERULAR FILTRATION RATE 101 mL/min/1.73m??? Normal >=60 [facility] Comment on above: Order Comment: Speci men Type: BLOOD SPECIMENOrdering Facility: [facility] Address: [address] [place] [address] Result Comment: Lulu mated Glomerular Filtration Rate (eGFR) is calculated using the 2020 CKD-EPI creatinine equation. This equation utilizes serum creatinine, sex, and age as parameters. The creatinine assay has traceable calibration to isotope dilution-mass spectrometry. Refer to KDIGO guidelines for clinical interpretation. In patients with unstable renal function, e.g. those with acute kidney injury, the eGFR may not accurately reflect actual GFR. Performed By: #### 2 4321-2 ####[facility]ORATORYCLIA [id number] [place] [address] [place] Glucose [Mass/Vol] 125 mg/dL High 74-99 [facility] Comment on above: Order Comment: Speci men Type: BLOOD SPECIMENOrdering Facility: [facility] Address: [address] [place] [address] Result Comment: The [place] [employer] (ADA) provides guidance for cutoff values for fasting glucose and random glucose. The ADA defines fasting as no caloric intake for at least 8 hours. Fasting plasma glucose results between 100 to 125 mg/dL indicate increased risk for diabetes (prediabetes).Fasting plasma glucose results greater than or equal to 126 mg/dL meet the criteria for diagnosis of diabetes. In the absence of unequivocal hyperglycemia, results should be confirmed by repeat testing. In a patient with classic symptoms of hyperglycemia or hyperglycemic crisis, random plasma glucose results greater than or equal to 200 mg/dL meet the criteria for diagnosis of diabetes.Reference: Standards of Medical Care in Diabetes 2016, [place] [employer]. Diabetes Care. 2016.39(Suppl 1). Performed By: #### 2 4321-2 ####[facility]ORATORYCLIA [id number] [place] [address] [place] Potassium [Moles/Vol] 3.8 mmol/L Normal 3.7-5.1 [facility] Comment on above: Order Comment: Sharath lozano Type: BLOOD SPECIMENOrdering Facility: [facility] Address: [address] [place] [address] Performed By: #### 2 4321-2 ####[facility]ORATORYCLIA [id number] [place] [address] [place] Sodium [Moles/Vol] 130 mmol/L Low 136-144 [facility] Comment on above: Order Comment: Speci men Type: BLOOD SPECIMENOrdering Facility: [facility] Address: [address] [place] [address] Performed By: #### 2 4321-2 ####[facility]ORATORYCLIA [id number] [place] [address] [place] Urea nitrogen [Mass/Vol] 7 mg/dL Normal 7-21 [facility] Comment on above: Order Comment: Speci men Type: BLOOD SPECIMENOrdering Facility: [facility] Address: [address] [place] [address] Performed By: #### 2 4321-2 ####[facility]ORATORYCLIA [id number] [address] CBC panel Auto (Bld)on 10-11 Erythrocyte distribution width (RBC) [Ratio] 13.5 % Normal 11.5-15.0 [facility] Comment on above: Order Comment: Speci men Type: BLOOD SPECIMENOrdering Facility: [facility] Address: [address] [place] [address] Performed By: #### 5 8410-2 ####[facility]ORATORYCLIA [id number] [address] Hematocrit (Bld) [Volume fraction] 25.4 % Low 36.0-46.0 [facility] Comment on above: Order Comment: Speci men Type: BLOOD SPECIMENOrdering Facility: [facility] Address: [address] [place] [address] Performed By: #### 5 8410-2 ####[facility]ATORYCLIA [id number] [address] Hemoglobin (Bld) [Mass/Vol] 8.8 g/dL Low 11.5-15.5 [facility] Comment on above: Order Comment: Speci men Type: BLOOD SPECIMENOrdering Facility: [facility] Address: [address] [place] [address] Performed By: #### 5 8410-2 ####[facility]ORATORYCLIA [id number] [address] MCH (RBC) [Entitic mass] 32.5 pg Normal 26.0-34.0 [facility] Comment on above: Order Comment: Speci men Type: BLOOD SPECIMENOrdering Facility: [facility] Address: [address] [place] [address] Performed By: #### 5 8410-2 ####[facility]ORATORYCLIA [id number] [address] STATES OF [facility] MCHC (RBC) [Mass/Vol] 34.6 g/dL Normal 30.5-36.0 [facility] Comment on above: Order Comment: Speci men Type: BLOOD SPECIMENOrdering Facility: [facility] Address: [address] [place] [address] Performed By: #### 5 8410-2 ####[facility]ORATORYCLIA [id number] [address] [place] MCV (RBC) [Entitic vol] 93.7 fL Normal 80.0-100.0 [facility] Comment on above: Order Comment: Speci men Type: BLOOD SPECIMENOrdering Facility: [facility] Address: [address] [place] [address] Performed By: #### 5 8410-2 ####[facility]ORATORYCLIA [id number] [address] [place] Nucleated RBC (Bld) [#/Vol] 10*3/uL Normal <0.01 [facility] Comment on above: Order Comment: Speci men Type: BLOOD SPECIMENOrdering Facility: [facility] Address: [address] [place] [address] Performed By: #### 5 8410-2 ####[facility]ORATORYCLIA [id number] [address] [place] Platelet mean volume (Bld) [Entitic vol] 9.7 fL Normal 9.0-12.7 [facility] Comment on above: Order Comment: Speci men Type: BLOOD SPECIMENOrdering Facility: [facility] Address: [address] [place] [address] Performed By: #### 5 8410-2 ####[facility]ORATORYCLIA [id number] [address] [place] Platelets (Bld) [#/Vol] 310 10*3/uL Normal 150-400 [facility] Comment on above: Order Comment: Speci men Type: BLOOD SPECIMENOrdering Facility: [facility] Address: [address] [place] [address] Performed By: #### 5 8410-2 ####[facility]ORATORYCLIA [id number] [address] RBC (Bld) [#/Vol] 2.71 10*6/uL Low 3.90-5.20 [facility] Comment on above: Order Comment: Speci men Type: BLOOD SPECIMENOrdering Facility: [facility] Address: [address] [place] [address] Performed By: #### 5 8410-2 ####[facility]ORATORYCLIA [id number] [address] WBC (Bld) [#/Vol] 19.17 10*3/uL High 3.70-11.00 [facility] Comment on above: Order Comment: Speci men Type: BLOOD SPECIMENOrdering Facility: [facility] Address: [address] [place] [address] Performed By: #### 5 8410-2 ####[facility]ORATORYCLIA [id number] [address] CONSULTon 10-11-2021 CONSULT HNO ID: [id number] Author: Corin Quinn MD Service: [facility] Author Type: Physician Type: Consults Filed: 10/11/2021 3:56 PM Note Text: Consul tdictated. No intervention Normal [facility] CONSULT Normal [facility] MRI BRAIN WO/W IVCONon 10-11 MRI BRAIN WO/W IVCON Normal [facility] SEPSIS LACTATEon 10-11-2021 Lactate [Moles/Vol] 1.0 mmol/L Normal 0.5-2.0 [facility] Comment on above: Order Comment: Speci men Type: BLOOD SPECIMENOrdering Facility: [facility] Address: [address] [place] [address] Performed By: #### S LACT ####[facility]ORATORYCLIA [id number] [address] [place] THERAPY NTon 10-11-2021 THERAPY NT Normal [facility] THERAPY NT Normal [facility] XR CHEST 1V FRONTALon 2021 XR CHEST 1V FRONTAL Normal [facility] ALLIED HEALTHon 10-10-2021 ALLIED HEALTH Normal [facility] ALLIED HEALTH Normal [facility] Basic metabolic 2000 panelon 10-10-2021 Anion gap [Moles/Vol] 13 mmol/L Normal 9-18 [facility] Comment on above: Order Comment: Speci men Type: BLOOD SPECIMENOrdering Facility: [facility] Address: [address] [place] [address] Performed By: #### 2 4321-2, 2776-04, ####[facility]ORATORYCLIA [id number] [place] [address] [place] Calcium [Mass/Vol] 7.1 mg/dL Low 8.5-10.2 [facility] Comment on above: Order Comment: Speci men Type: BLOOD SPECIMENOrdering Facility: [facility] Address: [address] [place] [address] Performed By: #### 2 4321-2, 2776-04, ####[facility]ORATORYCLIA [id number] [place] [address] [place] Chloride [Moles/Vol] 96 mmol/L Low 97-105 [facility] Comment on above: Order Comment: Speci men Type: BLOOD SPECIMENOrdering Facility: [facility] Address: [address] [address] Performed By: #### 2 4321-2, 2776-04, ####[facility]ORATORYCLIA [id number] [place] [address] [place] CO2 [Moles/Vol] 23 mmol/L Normal 22-30 [facility] Comment on above: Order Comment: Speci men Type: BLOOD SPECIMENOrdering Facility: [facility] Address: [address] [address] Performed By: #### 2 4321-2, 2777-1, ####[facility]SELAERCLIA [id number] [place] [address] [place] [facility] Creatinine [Mass/Vol] 0.52 mg/dL Low 0.58-0.96 [facility] Comment on above: Order Comment: Specmoe lozano Type: BLOOD SPECIMENOrdering Facility: [facility] Address: [address] [place], [place] [id number] Performed By: #### 2 4321-2, 2777-, ####[facility]SELAERCLIA [id number] [place] [address] [facility] ESTIMATED GLOMERULAR FILTRATION RATE 98 mL/min/1.73m??? Normal >=60 [facility] Comment on above: Order Comment: Sharath lozano Type: BLOOD SPECIMENOrdering Facility: [facility] Address: [address] [place] [address] Result Comment: Lulu mated Glomerular Filtration Rate (eGFR) is calculated using the 2020 CKD-EPI creatinine equation. This equation utilizes serum creatinine, sex, and age as parameters. The creatinine assay has traceable calibration to isotope dilution-mass spectrometry. Refer to KDIGO guidelines for clinical interpretation. In patients with unstable renal function, e.g. those with acute kidney injury, the eGFR may not accurately reflect actual GFR. Performed By: #### 2 4321-2, 2777-, ####[facility] LABORATORYCLIA [id number] [place] [address] [place] Glucose [Mass/Vol] 126 mg/dL High 74-99 [facility] Comment on above: Order Comment: Sharath marta Type: BLOOD SPECIMENOrdering Facility: [facility] Address: [address] [phone] Result Comment: The [place] [employer] (ADA) provides guidance for cutoff values for fasting glucose and random glucose. The ADA defines fasting as no caloric intake for at least 8 hours. Fasting plasma glucose results between 100 to 125 mg/dL indicate increased risk for diabetes (prediabetes).Fasting plasma glucose results greater than or equal to 126 mg/dL meet the criteria for diagnosis of diabetes. In the absence of unequivocal hyperglycemia, results should be confirmed by repeat testing. In a patient with classic symptoms of hyperglycemia or hyperglycemic crisis, random plasma glucose results greater than or equal to 200 mg/dL meet the criteria for diagnosis of diabetes.Reference: Standards of Medical Care in Diabetes 2016, [place] [employer]. Diabetes Care. 2016.39(Suppl 1). Performed By: #### 2 4321-2, 277-, ####[facility] LABORATORYCLIA [id number] [place] [address] [place] Potassium [Moles/Vol] 3.8 mmol/L Normal 3.7-5.1 [facility] Comment on above: Order Comment: Sharath lozano Type: BLOOD SPECIMENOrdering Facility: [facility] Address: [address] [place] [address] Performed By: #### 2 4321-2, 2776-04, ####[facility]LA[facility]CLIA [id number] [address] [place] Sodium [Moles/Vol] 132 mmol/L Low 136-144 [facility] Comment on above: Order Comment: Sharath lozano Type: BLOOD SPECIMENOrdering Facility: [facility] Address: [address] [place] [address] Performed By: #### 2 4321-2, 2776-04, ####[facility]ORATORYCLIA [id number] [place] [address] [place] Urea nitrogen [Mass/Vol] 9 mg/dL Normal 7- [facility] Comment on above: Order Comment: Sharath lozano Type: BLOOD SPECIMENOrdering Facility: [facility] Address: [address] [place] [address] Performed By: #### 2 4321-2, 2776-04, ####[facility]ORATORYCLIA [id number] [place] [address] [place] CASE MGT INIT ASSESon 2021 CASE MGT INIT ASSES Normal [facility] CBC panel Auto (Bld)on 10-10 Erythrocyte distribution width (RBC) [Ratio] 13.2 % Normal 11.5-15.0 [facility] Comment on above: Order Comment: Speci men Type: BLOOD SPECIMENOrdering Facility: [facility] Address: [address] [place] [address] Performed By: #### 5 8410-2 ####[facility]ORATORYCLIA [id number] [address] Hematocrit (Bld) [Volume fraction] 26.5 % Low 36.0-46.0 [facility] Comment on above: Order Comment: Speci men Type: BLOOD SPECIMENOrdering Facility: [facility] Address: [address] [place] [address] Performed By: #### 5 8410-2 ####[facility]ORATORYCLIA [id number] [address] OF [facility] Hemoglobin (Bld) [Mass/Vol] 9.3 g/dL Low 11.5-15.5 [facility] Comment on above: Order Comment: Speci men Type: BLOOD SPECIMENOrdering Facility: [facility] Address: [address] [place] [address] Performed By: #### 5 8410-2 ####[facility]ORATORYCLIA [id number] [address] STATES [facility] MCH (RBC) [Entitic mass] 33.0 pg Normal 26.0-34.0 [facility] Comment on above: Order Comment: Speci men Type: BLOOD SPECIMENOrdering Facility: [facility] Address: [address] [place] [address] Performed By: #### 5 8410-2 ####[facility]ORATORYCLIA [id number] [address] MCHC (RBC) [Mass/Vol] 35.1 g/dL Normal 30.5-36.0 [facility] Comment on above: Order Comment: Speci men Type: BLOOD SPECIMENOrdering Facility: [facility] Address: [address] [address] Performed By: #### 5 8410-2 ####[facility]ORATORYCLIA [id number] [address] MCV (RBC) [Entitic vol] 94.0 fL Normal 80.0-100.0 [facility] Comment on above: Order Comment: Speci men Type: BLOOD SPECIMENOrdering Facility: [facility] Address: [address] [place] [address] Performed By: #### 5 8410-2 ####[facility]ORATORYCLIA [id number] [address] Nucleated RBC (Bld) [#/Vol] 10*3/uL Normal <0.01 [facility] Comment on above: Order Comment: Speci men Type: BLOOD SPECIMENOrdering Facility: [facility] Address: [address] [place] [address] Performed By: #### 5 8410-2 ####[facility]ORATORYCLIA [id number] [address] Platelet mean volume (Bld) [Entitic vol] 9.6 fL Normal 9.0-12.7 [facility] Comment on above: Order Comment: Speci men Type: BLOOD SPECIMENOrdering Facility: [facility] Address: [address] [place] [address] Performed By: #### 5 8410-2 ####[facility]ORATORYCLIA [id number] [address] [address] Platelets (Bld) [#/Vol] 325 10*3/uL Normal 150-400 [facility] Comment on above: Order Comment: Speci men Type: BLOOD SPECIMENOrdering Facility: [facility] Address: [address] [place] [address] Performed By: #### 5 8410-2 ####[facility] LABORATORYCLIA [id number] [place] [address] [place] RBC (Bld) [#/Vol] 2.82 10*6/uL Low 3.90-5.20 [facility] Comment on above: Order Comment: Speci men Type: BLOOD SPECIMENOrdering Facility: [facility] Address: [address] [place] [address] Performed By: #### 5 8410-2 ####[facility] LABORATORYCLIA [id number] [address] [place] WBC (Bld) [#/Vol] 14.72 10*3/uL High 3.70-11.00 [facility] Comment on above: Order Comment: Speci men Type: BLOOD SPECIMENOrdering Facility: [facility] Address: [address] [place] [address] Performed By: #### 5 8410-2 ####[facility] LABORATORYCLIA [id number] [address] CONSULTon 10-10-2021 CONSULT Normal [facility] Calcium.ionized [Moles/Vol]o n 10-10-2021 Calcium.ionized (BldV) [Mass/Vol] 0.96 mmol/L Low 1.08-1.30 [facility] Comment on above: Order Comment: Speci men Type: BLOOD SPECIMENOrdering Facility: [facility] Address: [address] [place] [address] Performed By: #### 1 995-0 ####[facility] LABORATORYCLIA [id number] [address] Calcium.ionized adjusted to pH 7.4 (Bld) [Moles/Vol] 0.98 mmol/L Low 1.08-1.30 [facility] Comment on above: Order Comment: Speci men Type: BLOOD SPECIMENOrdering Facility: [facility] Address: [address] [place] [address] Performed By: #### 1 995-0 ####[facility] LABORATORYCLIA [id number] [address] Magnesium SerPl-mCncon 10-10 Magnesium [Mass/Vol] 1.3 mg/dL Low 1.7-2.3 [facility] Comment on above: Order Comment: Speci men Type: BLOOD SPECIMENOrdering Facility: [facility] Address: [address] [place] [address] Performed By: #### 2 4321-2, 2777-1, 09538-6 ####[facility] LABORATORYCLIA [id number] [address] [place] Phosphate SerPl-mCncon 10-10 Phosphate [Mass/Vol] 4.0 mg/dL Normal 2.7-4.8 [facility] Comment on above: Order Comment: Speci men Type: BLOOD SPECIMENOrdering Facility: [facility] Address: [address] [place] [address] Performed By: #### 2 4321-2, 2777-1, 85572-4 ####[facility] LABORATORYCLIA [id number] [place] [address] [place] US KIDNEY/BLADDERon 10-11-19 US KIDNEY/BLADDER Normal [facility] Urinalysis complete panel (U )on 10-10-2021 Bilirubin Ql (U) Negative Normal Negative [facility] Comment on above: Order Comment: Speci men Type: URINE SPECIMENOrdering Facility: [facility] Address: [address] [place] [address] Performed By: #### 2 4356-8 ####[facility] LABORATORYCLIA [id number] [address] [place] Clarity (Unsp spec) Clear Normal Clear [facility] Comment on above: Order Comment: Speci men Type: URINE SPECIMENOrdering Facility: [facility] Address: [address] [place] [address] Performed By: #### 2 4356-8 ####[facility] LABORATORYCLIA [id number] [address] [place] Color (U) Colorless Normal yellow [facility] Comment on above: Order Comment: Speci men Type: URINE SPECIMENOrdering Facility: [facility] Address: [address] [place] [address] Performed By: #### 2 4356-8 ####[facility]ORATORYCLIA [id number] [address] [place] Glucose Test strip (U) [Mass/Vol] Negative Normal Negative [facility] Comment on above: Order Comment: Speci men Type: URINE SPECIMENOrdering Facility: [facility] Address: [address] [place] [address] Performed By: #### 2 4356-8 ####[place] LABORATORYCLIA [id number] [address] Hemoglobin Ql (U) Trace Abnormal Negative [facility] Comment on above: Order Comment: Speci men Type: URINE SPECIMENOrdering Facility: [facility] Address: [address] [place] [address] Performed By: #### 2 4356-8 ####[facility]ORATORYCLIA [id number] [address] [place] Ketones Ql (U) Negative Normal Negative [facility] Comment on above: Order Comment: Speci men Type: URINE SPECIMENOrdering Facility: [facility] Address: [address] [place] [address] Performed By: #### 2 4356-8 ####[facility]ORATORYCLIA [id number] [address] Leukocyte esterase Test strip Ql (U) 250 Karson/mL Abnormal Negative [facility] Comment on above: Order Comment: Speci men Type: URINE SPECIMENOrdering Facility: [facility] Address: [address] [place] [address] Performed By: #### 2 4356-8 ####[facility] [facility]ORATORYCLIA [id number] [place] [address] [place] Nitrite Ql (U) Negative Normal Negative [facility] Comment on above: Order Comment: Speci men Type: URINE SPECIMENOrdering Facility: [facility] Address: [address] [place] [address] Performed By: #### 2 4356-8 ####[facility] LABORATORYCLIA [id number] [address] pH (U) 6.5 [pH] Normal 5.0-8.0 [facility] Comment on above: Order Comment: Speci men Type: URINE SPECIMENOrdering Facility: [facility] Address: [address] [place] [address] Performed By: #### 2 4356-8 ####[facility] LABORATORYCLIA [id number] [address] STATES [facility] Protein (U) [Mass/Vol] Negative Normal Negative [facility] Comment on above: Order Comment: Speci men Type: URINE SPECIMENOrdering Facility: [facility] Address: [address] [place] [address] Performed By: #### 2 4356-8 ####[facility] LABORATORYCLIA [id number] [address] STATES [facility] RBC LM.HPF (Urine sed) [#/Area] 3-5 /HPF Abnormal 0-3 /HPF [facility] Comment on above: Order Comment: Speci men Type: URINE SPECIMENOrdering Facility: [facility] Address: [address] [place] [address] Performed By: #### 2 4356-8 ####[facility] LABORATORYCLIA [id number] [address] Specific gravity (U) [Rel density] 1.007 Normal 1.005-1.030 [facility] Comment on above: Order Comment: Speci men Type: URINE SPECIMENOrdering Facility: [facility] Address: [address] [place] [address] Performed By: #### 2 4356-8 ####[facility] LABORATORYCLIA [id number] [address] Urobilinogen Ql (U) Normal Normal Negative [facility] Comment on above: Order Comment: Speci men Type: URINE SPECIMENOrdering Facility: [facility] Address: [address] [place] [address] Performed By: #### 2 4356-8 ####[facility] LABORATORYCLIA [id number] [place] [address] [place] WBC LM.HPF (Urine sed) [#/Area] 6-10 /HPF Abnormal 0-5 /HPF [facility] Comment on above: Order Comment: Speci men Type: URINE SPECIMENOrdering Facility: [facility] Address: [address] [place] [address] Performed By: #### 2 4356-8 ####[facility] LABORATORYCLIA [id number] [address] [place] XR CHEST 1V FRONTALon 2021 XR CHEST 1V FRONTAL Normal [facility] ALLIED HEALTHon 10-09-2021 ALLIED HEALTH Normal [facility] ALLIED HEALTH Normal [facility] ANES PRE-OPon 10-09-2021 ANES PRE-OP Normal [facility] ANES PRE-OP Normal [facility] ARTERIAL BLOOD GASESon 10-09 BASE DEFICIT, ARTERIAL -1 mmol/L Normal -2-0 [facility] Comment on above: Order Comment: Speci men Type: ARTERIAL BLOOD SPECIMENOrdering Facility: [facility] Address: [address] [place] [address] Performed By: #### A LLBG ####[facility] LABORATORYCLIA [id number] [place] [address] [place] Body temperature 96.08 [degF] Normal [facility] Comment on above: Order Comment: Speci men Type: ARTERIAL BLOOD SPECIMENOrdering Facility: [facility] Address: [address] [place] [address] Performed By: #### A LLBG ####[facility] LABORATORYCLIA [id number] [place] [address] [place] CALCIUM IONIZED, PH CORRECTED 1.07 mmol/L Low 1.08-1.30 [facility] Comment on above: Order Comment: Speci men Type: ARTERIAL BLOOD SPECIMENOrdering Facility: [facility] Address: [address] [place] [address] Performed By: #### A LLBG ####[facility] LABORATORYCLIA [id number] [place] [address] [place] Calcium.ionized (BldV) [Mass/Vol] 1.07 mmol/L Low 1.08-1.30 [facility] Comment on above: Order Comment: Speci men Type: ARTERIAL BLOOD SPECIMENOrdering Facility: [facility] Address: [address] [place] [address] Performed By: #### A LLBG ####[facility] LABORATORYCLIA [id number] [address] [place] Carboxyhemoglobin (BldA) [Mass fraction] 1.2 % Normal 0.0-2.0 [facility] Comment on above: Order Comment: Speci men Type: ARTERIAL BLOOD SPECIMENOrdering Facility: [facility] Address: [address] [place] [address] Result Comment: Carb oxyhemoglobin Reference Range for Smokers: 2.0-8.0% Performed By: #### A LLBG ####[facility] LABORATORYCLIA [id number] [address] [place] CO2 (Bld) [Partial pressure] 39 mm Hg Normal 36-46 [facility] Comment on above: Order Comment: Speci men Type: ARTERIAL BLOOD SPECIMENOrdering Facility: [facility] Address: [address] [place] [address] Performed By: #### A LLBG ####[facility] LABORATORYCLIA [id number] [address] [place] CO2 [Moles/Vol] 22 mmol/L Normal 22-28 [facility] Comment on above: Order Comment: Speci men Type: ARTERIAL BLOOD SPECIMENOrdering Facility: [facility] Address: [address] [place] [address] Performed By: #### A LLBG ####[facility] LABORATORYCLIA [id number] [address] [place] CO2 adjusted to patient's actual temperature (Bld) [Partial pressure] 36 mmHg Normal 36-46 [facility] Comment on above: Order Comment: Speci men Type: ARTERIAL BLOOD SPECIMENOrdering Facility: [facility] Address: [address] [place] [address] Performed By: #### A LLBG ####[facility] LABORATORYCLIA [id number] [address] [place] Glucose [Mass/Vol] 164 mg/dL High 60-105 [facility] Comment on above: Order Comment: Speci men Type: ARTERIAL BLOOD SPECIMENOrdering Facility: [facility] Address: [address] [place] [address] Performed By: #### A LLBG ####[facility] LABORATORYCLIA [id number] [address] [place] HCO3 (Bld) [Moles/Vol] 24 mmol/L Normal 22-26 [facility] Comment on above: Order Comment: Speci men Type: ARTERIAL BLOOD SPECIMENOrdering Facility: [facility] Address: [address] [place] [address] Performed By: #### A LLBG ####[facility] LABORATORYCLIA [id number] [address] [place] Hematocrit (Bld) [Volume fraction] 32.9 % Low 36.0-46.0 [facility] Comment on above: Order Comment: Speci men Type: ARTERIAL BLOOD SPECIMENOrdering Facility: [facility] Address: [address] [place] [address] Performed By: #### A LLBG ####[facility] LABORATORYCLIA [id number] [address] [place] Hemoglobin (Bld) [Mass/Vol] 10.6 g/dL Low 11.5-15.5 [facility] Comment on above: Order Comment: Speci men Type: ARTERIAL BLOOD SPECIMENOrdering Facility: [facility] Address: [address] [place] [address] Performed By: #### A LLBG ####[facility]ORATORYCLIA [id number] [address] [place] Methemoglobin (Bld) [Mass fraction] 1.1 % Normal 0.0-1.5 [facility] Comment on above: Order Comment: Speci men Type: ARTERIAL BLOOD SPECIMENOrdering Facility: [facility] Address: [address] [place] [address] Performed By: #### A LLBG ####[facility] LABORATORYCLIA [id number] [address] O2 THERAPY RA=Room Air Normal [facility] Comment on above: Order Comment: Speci men Type: ARTERIAL BLOOD SPECIMENOrdering Facility: [facility] Address: [address] [place] [address] Performed By: #### A LLBG ####[facility] LABORATORYCLIA [id number] [address] [place] Oxygen (Bld) [Partial pressure] 75 mm Hg Low 85-95 [facility] Comment on above: Order Comment: Speci men Type: ARTERIAL BLOOD SPECIMENOrdering Facility: [facility] Address: [address] [place] [address] Performed By: #### A LLBG ####[facility] LABORATORYCLIA [id number] [address] [place] Oxygen adjusted to patient's actual temperature (Bld) [Partial pressure] 69 mmHg Low 85-95 [facility] Comment on above: Order Comment: Speci men Type: ARTERIAL BLOOD SPECIMENOrdering Facility: [facility] Address: [address] [place] [address] Performed By: #### A LLBG ####[facility]ORATORYCLIA [id number] [address] [place] OXYGEN SATURATION, ARTERIAL 95 % Normal 95-98 [facility] Comment on above: Order Comment: Speci men Type: ARTERIAL BLOOD SPECIMENOrdering Facility: [facility] Address: [address] [place] [address] Performed By: #### A LLBG ####[facility] LABORATORYCLIA [id number] [address] Oxyhemoglobin (BldA) [Mass fraction] 93 % Low 95-98 [facility] Comment on above: Order Comment: Speci men Type: ARTERIAL BLOOD SPECIMENOrdering Facility: [facility] Address: [address] [place] [address] Performed By: #### A LLBG ####[facility] LABORATORYCLIA [id number] [address] [place] pH (Bld) 7.40 [pH] Normal 7.35-7.45 [facility] Comment on above: Order Comment: Speci men Type: ARTERIAL BLOOD SPECIMENOrdering Facility: [facility] Address: [address] [place] [address] Performed By: #### A LLBG ####[facility] LABORATORYCLIA [id number] [address] pH adjusted to patient's actual temperature (Bld) 7.42 Normal 7.35-7.45 [facility] Comment on above: Order Comment: Speci men Type: ARTERIAL BLOOD SPECIMENOrdering Facility: [facility] Address: [address] [place] [address] Performed By: #### A LLBG ####[facility] LABORATORYCLIA [id number] [address] [place] Potassium [Moles/Vol] 2.7 mmol/L Low 3.5-5.0 [facility] Comment on above: Order Comment: Speci men Type: ARTERIAL BLOOD SPECIMENOrdering Facility: [facility] Address: [address] [place] [address] Performed By: #### A LLBG ####[facility] LABORATORYCLIA [id number] [address] [place] Sodium [Moles/Vol] 133 mmol/L Low 136-144 [facility] Comment on above: Order Comment: Speci men Type: ARTERIAL BLOOD SPECIMENOrdering Facility: [facility] Address: [address] [place] [address] Performed By: #### A LLBG ####[facility] LABORATORYCLIA [id number] [place] [address] [place] Basic metabolic 2000 panelon 10-09-2021 Anion gap [Moles/Vol] 15 mmol/L Normal 9-18 [facility] Comment on above: Order Comment: Speci men Type: BLOOD SPECIMENOrdering Facility: [facility] Address: [address] [place] [address] Performed By: #### 1 9123-9, 2777-1, 11116-5 ####[facility] LABORATORYCLIA [id number] [place] [address] [place] Calcium [Mass/Vol] 8.4 mg/dL Low 8.5-10.2 [facility] Comment on above: Order Comment: Speci men Type: BLOOD SPECIMENOrdering Facility: [facility] Address: [address] [place] [address] Performed By: #### 1 9123-9, 2777-1, 88657-4 ####[facility] LABORATORYCLIA [id number] [place] [address] [place] Chloride [Moles/Vol] 96 mmol/L Low 97-105 [facility] Comment on above: Order Comment: Speci men Type: BLOOD SPECIMENOrdering Facility: [facility] Address: [address] [place] [address] Performed By: #### 1 9123-9, 2777-1, 22796-8 ####[facility] LABORATORYCLIA [id number] [place] [address] [place] CO2 [Moles/Vol] 23 mmol/L Normal 22-30 [facility] Comment on above: Order Comment: Speci men Type: BLOOD SPECIMENOrdering Facility: [facility] Address: [address] [place], [place] [address] Performed By: #### 1 9123-9, 2777-1, 41279-1 ####[facility]ITALIA [id number] [address] STATES OF [facility] Creatinine [Mass/Vol] 0.37 mg/dL Low 0.58-0.96 [facility] Comment on above: Order Comment: Sharath lozano Type: BLOOD SPECIMENOrdering Facility: [facility] Address: [address] [address] Performed By: #### 1 9123-9, 2777-, 13744-0 ####[facility]PITALIA [id number] [address] ESTIMATED GLOMERULAR FILTRATION RATE 106 mL/min/1.73m??? Normal >=60 [facility] Comment on above: Order Comment: Sharath lozano Type: BLOOD SPECIMENOrdering Facility: [facility] Address: [address] [address] Result Comment: Lulu mated Glomerular Filtration Rate (eGFR) is calculated using the 2020 CKD-EPI creatinine equation. This equation utilizes serum creatinine, sex, and age as parameters. The creatinine assay has traceable calibration to isotope dilution-mass spectrometry. Refer to KDIGO guidelines for clinical interpretation. In patients with unstable renal function, e.g. those with acute kidney injury, the eGFR may not accurately reflect actual GFR. Performed By: #### 1 9123-9, 2777-, 11331-3 ####[facility]PITALIA [id number] [address] STATES OF [facility] Glucose [Mass/Vol] 156 mg/dL High 74-99 [facility] Comment on above: Order Comment: Sharath lozano Type: BLOOD SPECIMENOrdering Facility: [facility] Address: [address] [address] Result Comment: The [place] [employer] (ADA) provides guidance for cutoff values for fasting glucose and random glucose. The ADA defines fasting as no caloric intake for at least 8 hours. Fasting plasma glucose results between 100 to 125 mg/dL indicate increased risk for diabetes (prediabetes).Fasting plasma glucose results greater than or equal to 126 mg/dL meet the criteria for diagnosis of diabetes. In the absence of unequivocal hyperglycemia, results should be confirmed by repeat testing. In a patient with classic symptoms of hyperglycemia or hyperglycemic crisis, random plasma glucose results greater than or equal to 200 mg/dL meet the criteria for diagnosis of diabetes.Reference: Standards of Medical Care in Diabetes 2016, [place] [employer]. Diabetes Care. 2016.39(Suppl 1). Performed By: #### 1 9123-9, 2777-, 95991-7 ####[facility] LABORATORYCLIA [id number] [place] [address] [place] Potassium [Moles/Vol] 3.3 mmol/L Low 3.7-5.1 [facility] Comment on above: Order Comment: Sharath lozano Type: BLOOD SPECIMENOrdering Facility: [facility] Address: [address] [place] [address] Performed By: #### 1 9123-9, 27710-20, 60446-1 ####[facility]SELAERCLIA [id number] [place] [address] [place] Sodium [Moles/Vol] 134 mmol/L Low 136-144 [facility] Comment on above: Order Comment: Sharath lozano Type: BLOOD SPECIMENOrdering Facility: [facility] Address: [address] [place] [address] Performed By: #### 1 9123-9, 2777, 47824-3 ####[facility] LABORATORYCLIA [id number] [place] [address] [place] Urea nitrogen [Mass/Vol] 7 mg/dL Normal 7-21 [facility] Comment on above: Order Comment: Cathyi marta Type: BLOOD SPECIMENOrdering Facility: [facility] Address: [address] [place] [address] Performed By: #### 1 9123-9, 2777, 35320-1 ####[facility] LABORATORYCLIA [id number] [place] [address] [place] Anion gap [Moles/Vol] 10 mmol/L Normal 9-18 [facility] Comment on above: Order Comment: Speci men Type: BLOOD SPECIMENOrdering Facility: [facility] Address: [address] [place] [address] Performed By: #### 2 777-1, 78725-7, ####[facility] LABORATORYCLIA [id number] [place] [address] [place] Calcium [Mass/Vol] 7.6 mg/dL Low 8.5-10.2 [facility] Comment on above: Order Comment: Speci men Type: BLOOD SPECIMENOrdering Facility: [facility] Address: [address] [place] [address] Performed By: #### 2 777-1, , ####[facility] LABORATORYCLIA [id number] [place] [address] [place] Chloride [Moles/Vol] 96 mmol/L Low 97-105 [facility] Comment on above: Order Comment: Speci men Type: BLOOD SPECIMENOrdering Facility: [facility] Address: [address] [place] [address] Performed By: #### 2 777-1, , ####[facility] LABORATORYCLIA [id number] [place] [address] [place] CO2 [Moles/Vol] 27 mmol/L Normal 22-30 [facility] Comment on above: Order Comment: Speci men Type: BLOOD SPECIMENOrdering Facility: [facility] Address: [address] [place] [address] Performed By: #### 2 777-1, , ####[facility] LABORATORYCLIA [id number] [place] [address] [place] Creatinine [Mass/Vol] 0.49 mg/dL Low 0.58-0.96 [facility] Comment on above: Order Comment: Speci men Type: BLOOD SPECIMENOrdering Facility: [facility] Address: [address] [address] Performed By: #### 2 777-1, 37516-5, ####[facility]SELAERCLIA [id number] [address] OF [facility] ESTIMATED GLOMERULAR FILTRATION RATE 99 mL/min/1.73m??? Normal >=60 [facility] Comment on above: Order Comment: Sharath lozano Type: BLOOD SPECIMENOrdering Facility: [facility] Address: [address] [address] Result Comment: Lulu mated Glomerular Filtration Rate (eGFR) is calculated using the 2020 CKD-EPI creatinine equation. This equation utilizes serum creatinine, sex, and age as parameters. The creatinine assay has traceable calibration to isotope dilution-mass spectrometry. Refer to KDIGO guidelines for clinical interpretation. In patients with unstable renal function, e.g. those with acute kidney injury, the eGFR may not accurately reflect actual GFR. Performed By: #### 2 777-1, 18832-5, ####[facility] LABORATORYIA [id number] [place] [address] [place] Glucose [Mass/Vol] 106 mg/dL High 74-99 [facility] Comment on above: Order Comment: Sharath lozano Type: BLOOD SPECIMENOrdering Facility: [facility] Address: [address] [address] Result Comment: The [place] [employer] (ADA) provides guidance for cutoff values for fasting glucose and random glucose. The ADA defines fasting as no caloric intake for at least 8 hours. Fasting plasma glucose results between 100 to 125 mg/dL indicate increased risk for diabetes (prediabetes).Fasting plasma glucose results greater than or equal to 126 mg/dL meet the criteria for diagnosis of diabetes. In the absence of unequivocal hyperglycemia, results should be confirmed by repeat testing. In a patient with classic symptoms of hyperglycemia or hyperglycemic crisis, random plasma glucose results greater than or equal to 200 mg/dL meet the criteria for diagnosis of diabetes.Reference: Standards of Medical Care in Diabetes 2016, [place] [employer]. Diabetes Care. 2016.39(Suppl 1). Performed By: #### 2 777-1, 45400-8, ####[facility] LABORATORYCLIA [id number] [place] [address] [place] Potassium [Moles/Vol] 3.5 mmol/L Low 3.7-5.1 [facility] Comment on above: Order Comment: Speci men Type: BLOOD SPECIMENOrdering Facility: [facility] Address: [address] [place] [address] Performed By: #### 2 777-1, 60520-5, ####[facility] LABORATORYCLIA [id number] [address] STATES OF [facility] Sodium [Moles/Vol] 133 mmol/L Low 136-144 [facility] Comment on above: Order Comment: Speci men Type: BLOOD SPECIMENOrdering Facility: [facility] Address: [address] [place] [address] Performed By: #### 2 777-1, 06880-1, ####[facility]SELAERCLIA [id number] [address] STATES [facility] Urea nitrogen [Mass/Vol] 6 mg/dL Low 7-21 [facility] Comment on above: Order Comment: Speci men Type: BLOOD SPECIMENOrdering Facility: [facility] Address: [address] [place] [address] Performed By: #### 2 777-1, 26425-2, ####[facility] LABORATORYCLIA [id number] [address] STATES [facility] CBC panel Auto (Bld)on 10-09 Erythrocyte distribution width (RBC) [Ratio] 13.2 % Normal 11.5-15.0 [facility] Comment on above: Order Comment: Speci men Type: BLOOD SPECIMENOrdering Facility: [facility] Address: [address] [place] [address] Performed By: #### 5 8410-2 ####[facility] LABORATORYCLIA [id number] [address] Hematocrit (Bld) [Volume fraction] 31.9 % Low 36.0-46.0 [facility] Comment on above: Order Comment: Speci men Type: BLOOD SPECIMENOrdering Facility: [facility] Address: [address] [place] [address] Performed By: #### 5 8410-2 ####[facility] LABORATORYCLIA [id number] [address] OF [facility] Hemoglobin (Bld) [Mass/Vol] 11.0 g/dL Low 11.5-15.5 [facility] Comment on above: Order Comment: Speci men Type: BLOOD SPECIMENOrdering Facility: [facility] Address: [address] [place] [address] Performed By: #### 5 8410-2 ####[facility] LABORATORYCLIA [id number] [address] [place] MCH (RBC) [Entitic mass] 32.7 pg Normal 26.0-34.0 [facility] Comment on above: Order Comment: Speci men Type: BLOOD SPECIMENOrdering Facility: [facility] Address: [address] [place] [address] Performed By: #### 5 8410-2 ####[facility] LABORATORYCLIA [id number] [address] [place] MCHC (RBC) [Mass/Vol] 34.5 g/dL Normal 30.5-36.0 [facility] Comment on above: Order Comment: Speci men Type: BLOOD SPECIMENOrdering Facility: [facility] Address: [address] [place] [address] Performed By: #### 5 8410-2 ####[facility] LABORATORYCLIA [id number] [address] MCV (RBC) [Entitic vol] 94.9 fL Normal 80.0-100.0 [facility] Comment on above: Order Comment: Speci men Type: BLOOD SPECIMENOrdering Facility: [facility] Address: [address] [place] [address] Performed By: #### 5 8410-2 ####[facility] LABORATORYCLIA [id number] [address] [place] Nucleated RBC (Bld) [#/Vol] 10*3/uL Normal <0.01 [facility] Comment on above: Order Comment: Speci men Type: BLOOD SPECIMENOrdering Facility: [facility] Address: [address] [place] [address] Performed By: #### 5 8410-2 ####[facility] LABORATORYCLIA [id number] [address] OF [place] Platelet mean volume (Bld) [Entitic vol] 9.7 fL Normal 9.0-12.7 [facility] Comment on above: Order Comment: Speci men Type: BLOOD SPECIMENOrdering Facility: [facility] Address: [address] [place] [address] Performed By: #### 5 8410-2 ####[facility] LABORATORYCLIA [id number] [address] OF [place] Platelets (Bld) [#/Vol] 301 10*3/uL Normal 150-400 [facility] Comment on above: Order Comment: Speci men Type: BLOOD SPECIMENOrdering Facility: [facility] Address: [address] [place] [address] Performed By: #### 5 8410-2 ####[facility] LABORATORYCLIA [id number] [address] [place] RBC (Bld) [#/Vol] 3.36 10*6/uL Low 3.90-5.20 [facility] Comment on above: Order Comment: Speci men Type: BLOOD SPECIMENOrdering Facility: [facility] Address: [address] [place] [address] Performed By: #### 5 8410-2 ####[facility] LABORATORYCLIA [id number] [address] [place] WBC (Bld) [#/Vol] 22.01 10*3/uL High 3.70-11.00 [facility] Comment on above: Order Comment: Speci men Type: BLOOD SPECIMENOrdering Facility: [facility] Address: [address] [place] [address] Performed By: #### 5 8410-2 ####[facility] LABORATORYCLIA [id number] [address] Erythrocyte distribution width (RBC) [Ratio] 13.4 % Normal 11.5-15.0 [facility] Comment on above: Order Comment: Speci men Type: BLOOD SPECIMENOrdering Facility: [facility] Address: [address] [place] [address] Performed By: #### 5 8410-2 ####[facility] LABORATORYCLIA [id number] [address] OF [facility] Hematocrit (Bld) [Volume fraction] 28.6 % Low 36.0-46.0 [facility] Comment on above: Order Comment: Speci men Type: BLOOD SPECIMENOrdering Facility: [facility] Address: [address] [place] [address] Performed By: #### 5 8410-2 ####[facility] LABORATORYCLIA [id number] [address] Hemoglobin (Bld) [Mass/Vol] 9.8 g/dL Low 11.5-15.5 [facility] Comment on above: Order Comment: Speci men Type: BLOOD SPECIMENOrdering Facility: [facility] Address: [address] [place] [address] Performed By: #### 5 8410-2 ####[facility] LABORATORYCLIA [id number] [address] MCH (RBC) [Entitic mass] 32.8 pg Normal 26.0-34.0 [facility] Comment on above: Order Comment: Speci men Type: BLOOD SPECIMENOrdering Facility: [facility] Address: [address] [place] [address] Performed By: #### 5 8410-2 ####[facility] LABORATORYCLIA [id number] [address] STATES OF [facility] MCHC (RBC) [Mass/Vol] 34.3 g/dL Normal 30.5-36.0 [facility] Comment on above: Order Comment: Speci men Type: BLOOD SPECIMENOrdering Facility: [facility] Address: [address] [place] [address] Performed By: #### 5 8410-2 ####[facility] LABORATORYCLIA [id number] [address] OF [facility] MCV (RBC) [Entitic vol] 95.7 fL Normal 80.0-100.0 [facility] Comment on above: Order Comment: Speci men Type: BLOOD SPECIMENOrdering Facility: [facility] Address: [address] [place] [address] Performed By: #### 5 8410-2 ####[facility] LABORATORYCLIA [id number] [address] Nucleated RBC (Bld) [#/Vol] 10*3/uL Normal <0.01 [facility] Comment on above: Order Comment: Speci men Type: BLOOD SPECIMENOrdering Facility: [facility] Address: [address] [place] [address] Performed By: #### 5 8410-2 ####[facility] LABORATORYCLIA [id number] [address] [place] Platelet mean volume (Bld) [Entitic vol] 9.9 fL Normal 9.0-12.7 [facility] Comment on above: Order Comment: Speci men Type: BLOOD SPECIMENOrdering Facility: [facility] Address: [address] [place] [address] Performed By: #### 5 8410-2 ####[facility] LABORATORYCLIA [id number] [address] [place] Platelets (Bld) [#/Vol] 273 10*3/uL Normal 150-400 [facility] Comment on above: Order Comment: Speci men Type: BLOOD SPECIMENOrdering Facility: [facility] Address: [address] [place] [address] Performed By: #### 5 8410-2 ####[facility] LABORATORYCLIA [id number] [address] OF [facility] RBC (Bld) [#/Vol] 2.99 10*6/uL Low 3.90-5.20 [facility] Comment on above: Order Comment: Speci men Type: BLOOD SPECIMENOrdering Facility: [facility] Address: [address] [place] [address] Performed By: #### 5 8410-2 ####[facility] LABORATORYCLIA [id number] [address] WBC (Bld) [#/Vol] 10.93 10*3/uL Normal 3.70-11.00 [facility] Comment on above: Order Comment: Speci men Type: BLOOD SPECIMENOrdering Facility: [facility] Address: [address] [place] [address] Performed By: #### 5 8410-2 ####[facility] LABORATORYCLIA [id number] [address] Calcium.ionized [Moles/Vol]o n 10-09-2021 Calcium.ionized (BldV) [Mass/Vol] 1.02 mmol/L Low 1.08-1.30 [facility] Comment on above: Order Comment: Speci men Type: BLOOD SPECIMENOrdering Facility: [facility] Address: [address] [place] [address] Performed By: #### 1 995-0 ####[facility] LABORATORYCLIA [id number] [address] Calcium.ionized adjusted to pH 7.4 (Bld) [Moles/Vol] 1.00 mmol/L Low 1.08-1.30 [facility] Comment on above: Order Comment: Speci men Type: BLOOD SPECIMENOrdering Facility: [facility] Address: [address] [place] [address] Performed By: #### 1 995-0 ####[facility] LABORATORYCLIA [id number] [address] Magnesium SerPl-mCncon 10-09 Magnesium [Mass/Vol] 1.3 mg/dL Low 1.7-2.3 [facility] Comment on above: Order Comment: Speci men Type: BLOOD SPECIMENOrdering Facility: [facility] Address: [address] [place] [address] Performed By: #### 1 9123-9, 2777-1, 45395-6 ####[facility] LABORATORYCLIA [id number] [address] Magnesium [Mass/Vol] 1.5 mg/dL Low 1.7-2.3 [facility] Comment on above: Order Comment: Speci men Type: BLOOD SPECIMENOrdering Facility: [facility] Address: [address] [place] [address] Performed By: #### 2 777-1, 93869-1, 66704-8 ####[facility] LABORATORYCLIA [id number] [address] NURSING PROGon 10-09-2021 NURSING PROG Normal [facility] OPERATIVE NOon 10-09-2021 OPERATIVE NO Normal [facility] Phosphate SerPl-mCncon 10-09 Phosphate [Mass/Vol] 4.3 mg/dL Normal 2.7-4.8 [facility] Comment on above: Order Comment: Speci men Type: BLOOD SPECIMENOrdering Facility: [facility] Address: [address] [place] [address] Performed By: #### 1 9123-9, 2777-1, 24026-9 ####[facility]ATORYCLIA [id number] [address] Phosphate [Mass/Vol] 3.8 mg/dL Normal 2.7-4.8 [facility] Comment on above: Order Comment: Speci men Type: BLOOD SPECIMENOrdering Facility: [facility] Address: [address] [place] [address] Performed By: #### 2 777-1, 20535-3, 17643-5 ####[facility] LABORATORYCLIA [id number] [address] [place] THERAPY NTon 10-09-2021 THERAPY NT Normal [facility] TYPE + SCREENon 10-09-2021 ABO A Normal [facility] Comment on above: Order Comment: Speci men Type: BLOOD SPECIMENOrdering Facility: [facility] Address: [address] [place] [address] Performed By: #### T SCR ####[facility] BLOOD BANKCLIA [id number] [address] HISTORICAL AB SCR STATUS Negative [facility] Comment on above: Order Comment: Speci men Type: BLOOD SPECIMENOrdering Facility: [facility] Address: [address] [place] [address] Performed By: #### T SCR ####[facility] BLOOD BANKCLIA [id number] [address] Rh Nom (Bld) Positive [facility] Comment on above: Order Comment: Speci men Type: BLOOD SPECIMENOrdering Facility: [facility] Address: [address] [place] [address] Performed By: #### T SCR ####[facility] BLOOD BANKCLIA [id number] [address] [place] TYPE AND SCREEN EXPIRATION 10/12/2021 23:59 Normal [facility] Comment on above: Order Comment: Speci men Type: BLOOD SPECIMENOrdering Facility: [facility] Address: [address] [place] [address] Performed By: #### T SCR ####[facility] BLOOD BANKCLIA [id number] [place] [address] [place] XR CHEST 1V FRONTALon 2021 XR CHEST 1V FRONTAL Normal [facility] XR CHEST 1V FRONTAL Normal [facility] 25(OH)D3 SerPl-mCncon 2021 25-hydroxyvitamin D3 [Mass/Vol] 44.4 ng/mL Normal 30.0-100.0 [facility] Comment on above: Order Comment: Speci men Type: BLOOD SPECIMENOrdering Facility: [facility] Address: [address] [place], [place] [id number] Result Comment: Clas sification of 25 [place] Vitamin D status:Deficiency: <= 20.0 ng/ml.Insufficientcy: 21.0-29.0 ng/ml.Sufficiency: >= 30.0 ng/ml. Performed By: #### 1 989-3 ####[facility] LABORATORYCLIA [id number] [place] [address] [place] ALLIED HEALTHon 10-08-2021 ALLIED HEALTH Normal [facility] Basic metabolic 2000 panelon 10-08-2021 Anion gap [Moles/Vol] 9 mmol/L Normal 9-18 [facility] Comment on above: Order Comment: Speci men Type: BLOOD SPECIMENOrdering Facility: [facility] Address: [address] [place], [place] [address] Performed By: #### 2 4321-2, , 2776-04 ####[facility] LABORATORYCLIA [id number] [place] [address] [place] Calcium [Mass/Vol] 7.1 mg/dL Low 8.5-10.2 [facility] Comment on above: Order Comment: Speci men Type: BLOOD SPECIMENOrdering Facility: [facility] Address: [address] [place] [id number] Performed By: #### 2 4321-2, , 2776-04 ####[facility] LABORATORYCLIA [id number] [place] [address] [place] Chloride [Moles/Vol] 100 mmol/L Normal 97-105 [facility] Comment on above: Order Comment: Speci men Type: BLOOD SPECIMENOrdering Facility: [facility] Address: [address] [place] [address] Performed By: #### 2 4321-2, , 2776-04 ####[facility]SELAERCLIA [id number] [address] CO2 [Moles/Vol] 24 mmol/L Normal 22-30 [facility] Comment on above: Order Comment: Speci men Type: BLOOD SPECIMENOrdering Facility: [facility] Address: [address] [place] [address] Performed By: #### 2 4321-2, , 2776-04 ####[facility] [id number] [address] Creatinine [Mass/Vol] 0.55 mg/dL Low 0.58-0.96 [facility] Comment on above: Order Comment: Speci men Type: BLOOD SPECIMENOrdering Facility: [facility] Address: [address] [place] [address] Performed By: #### 2 4321-2, , 2776-04 ####[facility]ITALIA [id number] [address] ESTIMATED GLOMERULAR FILTRATION RATE 96 mL/min/1.73m??? Normal >=60 [facility] Comment on above: Order Comment: Speci men Type: BLOOD SPECIMENOrdering Facility: [facility] Address: [address] [place] [address] Result Comment: Lulu mated Glomerular Filtration Rate (eGFR) is calculated using the 2020 CKD-EPI creatinine equation. This equation utilizes serum creatinine, sex, and age as parameters. The creatinine assay has traceable calibration to isotope dilution-mass spectrometry. Refer to KDIGO guidelines for clinical interpretation. In patients with unstable renal function, e.g. those with acute kidney injury, the eGFR may not accurately reflect actual GFR. Performed By: #### 2 4321-2, , 2776-04 ####[facility] LABORATORYCLIA [id number] [place] [address] [place] Glucose [Mass/Vol] 108 mg/dL High 74-99 [facility] Comment on above: Order Comment: Speci men Type: BLOOD SPECIMENOrdering Facility: [facility] Address: [address] [place] [address] Result Comment: The [place] [employer] (ADA) provides guidance for cutoff values for fasting glucose and random glucose. The ADA defines fasting as no caloric intake for at least 8 hours. Fasting plasma glucose results between 100 to 125 mg/dL indicate increased risk for diabetes (prediabetes).Fasting plasma glucose results greater than or equal to 126 mg/dL meet the criteria for diagnosis of diabetes. In the absence of unequivocal hyperglycemia, results should be confirmed by repeat testing. In a patient with classic symptoms of hyperglycemia or hyperglycemic crisis, random plasma glucose results greater than or equal to 200 mg/dL meet the criteria for diagnosis of diabetes.Reference: Standards of Medical Care in Diabetes 2016, [place] [employer]. Diabetes Care. 2016.39(Suppl 1). Performed By: #### 2 4321-2, , 2776-04 ####[facility] LABORATORYCLIA [id number] [place] [address] [place] Potassium [Moles/Vol] 3.5 mmol/L Low 3.7-5.1 [facility] Comment on above: Order Comment: Sharath lozano Type: BLOOD SPECIMENOrdering Facility: [facility] Address: [address] [place], [place] [address] Performed By: #### 2 4321-2, , 2776-04 ####[facility] LABORATORYCLIA [id number] [place] [address] [place] Sodium [Moles/Vol] 133 mmol/L Low 136-144 [facility] Comment on above: Order Comment: Sharath lozano Type: BLOOD SPECIMENOrdering Facility: [facility] Address: [address] [place], [place] [phone] Performed By: #### 2 4321-2, , 2776-04 ####[facility] LABORATORYCLIA [id number] [place] [address] [place] Urea nitrogen [Mass/Vol] 6 mg/dL Low 7-21 [facility] Comment on above: Order Comment: Speci men Type: BLOOD SPECIMENOrdering Facility: [facility] Address: [address] [place] [address] Performed By: #### 2 4321-2, 98978-9, 2777-1 ####[facility] LABORATORYCLIA [id number] [address] STATES OF [facility] CBC panel Auto (Bld)on 10-08 Erythrocyte distribution width (RBC) [Ratio] 13.3 % Normal 11.5-15.0 [facility] Comment on above: Order Comment: Speci men Type: BLOOD SPECIMENOrdering Facility: [facility] Address: [address] [place] [address] Performed By: #### 5 8410-2 ####[facility] LABORATORYCLIA [id number] [address] STATES OF [facility] Hematocrit (Bld) [Volume fraction] 28.3 % Low 36.0-46.0 [facility] Comment on above: Order Comment: Speci men Type: BLOOD SPECIMENOrdering Facility: [facility] Address: [address] [place] [address] Performed By: #### 5 8410-2 ####[facility] LABORATORYCLIA [id number] [address] STATES OF [facility] Hemoglobin (Bld) [Mass/Vol] 9.4 g/dL Low 11.5-15.5 [facility] Comment on above: Order Comment: Speci men Type: BLOOD SPECIMENOrdering Facility: [facility] Address: [address] [place] [address] Performed By: #### 5 8410-2 ####[facility] LABORATORYCLIA [id number] [address] MCH (RBC) [Entitic mass] 32.8 pg Normal 26.0-34.0 [facility] Comment on above: Order Comment: Speci men Type: BLOOD SPECIMENOrdering Facility: [facility] Address: [address] [place] [address] Performed By: #### 5 8410-2 ####[facility] LABORATORYCLIA [id number] [address] MCHC (RBC) [Mass/Vol] 33.2 g/dL Normal 30.5-36.0 [facility] Comment on above: Order Comment: Speci men Type: BLOOD SPECIMENOrdering Facility: [facility] Address: [address] [place] [address] Performed By: #### 5 8410-2 ####[facility] LABORATORYCLIA [id number] [address] MCV (RBC) [Entitic vol] 98.6 fL Normal 80.0-100.0 [facility] Comment on above: Order Comment: Speci men Type: BLOOD SPECIMENOrdering Facility: [facility] Address: [address] [place] [address] Performed By: #### 5 8410-2 ####[facility] LABORATORYCLIA [id number] [address] Nucleated RBC (Bld) [#/Vol] 10*3/uL Normal <0.01 [facility] Comment on above: Order Comment: Speci men Type: BLOOD SPECIMENOrdering Facility: [facility] Address: [address] [place] [address] Performed By: #### 5 8410-2 ####[facility] LABORATORYCLIA [id number] [address] Platelet mean volume (Bld) [Entitic vol] 10.1 fL Normal 9.0-12.7 [facility] Comment on above: Order Comment: Speci men Type: BLOOD SPECIMENOrdering Facility: [facility] Address: [address] [place] [address] Performed By: #### 5 8410-2 ####[facility] LABORATORYCLIA [id number] [address] Platelets (Bld) [#/Vol] 262 10*3/uL Normal 150-400 [facility] Comment on above: Order Comment: Speci men Type: BLOOD SPECIMENOrdering Facility: [facility] Address: [address] [place] [address] Performed By: #### 5 8410-2 ####[facility] LABORATORYCLIA [id number] [address] [place] RBC (Bld) [#/Vol] 2.87 10*6/uL Low 3.90-5.20 [facility] Comment on above: Order Comment: Speci men Type: BLOOD SPECIMENOrdering Facility: [facility] Address: [address] [place] [address] Performed By: #### 5 8410-2 ####[facility] LABORATORYCLIA [id number] [address] WBC (Bld) [#/Vol] 7.41 10*3/uL Normal 3.70-11.00 [facility] Comment on above: Order Comment: Speci men Type: BLOOD SPECIMENOrdering Facility: [facility] Address: [address] [place] [address] Performed By: #### 5 8410-2 ####[facility] LABORATORYCLIA [id number] [address] Calcium.ionized [Moles/Vol]o n 10-08-2021 Calcium.ionized (BldV) [Mass/Vol] 0.99 mmol/L Low 1.08-1.30 [facility] Comment on above: Order Comment: Speci men Type: BLOOD SPECIMENOrdering Facility: [facility] Address: [address] [place] [address] Performed By: #### 1 995-0 ####[facility] LABORATORYCLIA [id number] [address] Calcium.ionized adjusted to pH 7.4 (Bld) [Moles/Vol] 0.96 mmol/L Low 1.08-1.30 [facility] Comment on above: Order Comment: Speci men Type: BLOOD SPECIMENOrdering Facility: [facility] Address: [address] [place] [address] Performed By: #### 1 995-0 ####[facility] LABORATORYCLIA [id number] [address] OF [facility] Magnesium [facility] Hospitalon 10[facility]08 Magnesium [Mass/Vol] 1.8 mg/dL Normal 1.7-2.3 [facility] Comment on above: Order Comment: Speci men Type: BLOOD SPECIMENOrdering Facility: [facility] Address: [address] [place] [address] Performed By: #### 2 4321-2, , 2777-1 ####[facility] LABORATORYCLIA [id number] [address] OF [facility] Phosphate SerPl-ncon 10-08 Phosphate [Mass/Vol] 3.4 mg/dL Normal 2.7-4.8 [facility] Comment on above: Order Comment: Speci men Type: BLOOD SPECIMENOrdering Facility: [facility] Address: [address] [place] [address] Performed By: #### 2 4321-2, , 27710-20 ####[facility] LABORATORYCLIA [id number] [address] [place] THERAPY NTon 10-08-2021 THERAPY NT Normal [facility] XR CHEST 1V FRONTALon 2021 XR CHEST 1V FRONTAL Normal [facility] 25(OH)D3 [facility] 2021 25-hydroxyvitamin D3 [Mass/Vol] 50.5 ng/mL Normal 30.0-100.0 [facility] Comment on above: Order Comment: Speci men Type: BLOOD SPECIMENOrdering Facility: [facility] Address: [address] [place] [address] Result Comment: Clas sification of 25 [place] Vitamin D status:Deficiency: <= 20.0 ng/ml.Insufficientcy: 21.0-29.0 ng/ml.Sufficiency: >= 30.0 ng/ml. Performed By: #### 1 989-3 ####[facility] LABORATORYCLIA [id number] [place] [address] [place] ALLIED HEALTHon 10-07-2021 ALLIED HEALTH Normal [facility] ALLIED HEALTH Normal [facility] ALLIED HEALTH Normal [facility] ALLIED HEALTH Normal [facility] HEALTH Normal [facility] Basic metabolic 2000 panelon 10-07-2021 Anion gap [Moles/Vol] 8 mmol/L Low 9-18 [facility] Comment on above: Order Comment: Speci men Type: BLOOD SPECIMENOrdering Facility: [facility] Address: [address] [place] [address] Performed By: #### 2 4321-2, 2776-04, ####[facility] LABORATORYCLIA [id number] [place] [address] [place] Calcium [Mass/Vol] 7.1 mg/dL Low 8.5-10.2 [facility] Comment on above: Order Comment: Speci men Type: BLOOD SPECIMENOrdering Facility: [facility] Address: [address] [place] [address] Performed By: #### 2 4321-2, 2776-04, ####[facility] LABORATORYCLIA [id number] [place] [address] [place] Chloride [Moles/Vol] 99 mmol/L Normal 97-105 [facility] Comment on above: Order Comment: Speci men Type: BLOOD SPECIMENOrdering Facility: [facility] Address: [address] [place] [address] Performed By: #### 2 4321-2, 2776-04, ####[facility] LABORATORYCLIA [id number] [place] [id number] [place] CO2 [Moles/Vol] 24 mmol/L Normal 22-30 [facility] Comment on above: Order Comment: Speci men Type: BLOOD SPECIMENOrdering Facility: [facility] Address: [address] [place] [address] Performed By: #### 2 4321-2, 2776-04, ####[facility]ENSSELAERCLIA [id number] [place] [id number] [place] Creatinine [Mass/Vol] 0.51 mg/dL Low 0.58-0.96 [facility] Comment on above: Order Comment: Speci men Type: BLOOD SPECIMENOrdering Facility: [facility] Address: [address] [place] [address] Performed By: #### 2 4321-2, 2776-04, ####[facility]OSPITALIA [id number] [address] [place] ESTIMATED GLOMERULAR FILTRATION RATE 98 mL/min/1.73m??? Normal >=60 [facility] Comment on above: Order Comment: Speci men Type: BLOOD SPECIMENOrdering Facility: [facility] Address: [address] [place] [address] Result Comment: Lulu mated Glomerular Filtration Rate (eGFR) is calculated using the 2020 CKD-EPI creatinine equation. This equation utilizes serum creatinine, sex, and age as parameters. The creatinine assay has traceable calibration to isotope dilution-mass spectrometry. Refer to KDIGO guidelines for clinical interpretation. In patients with unstable renal function, e.g. those with acute kidney injury, the eGFR may not accurately reflect actual GFR. Performed By: #### 2 4321-2, 2776-04, ####[facility] HOSPITALIA [id number] [place] [address] [place] Glucose [Mass/Vol] 112 mg/dL High 74-99 [facility] Comment on above: Order Comment: Speci men Type: BLOOD SPECIMENOrdering Facility: [facility] Address: [address] [place], [place] [id number] Result Comment: The [place] Diabetes Association (ADA) provides guidance for cutoff values for fasting glucose and random glucose. The ADA defines fasting as no caloric intake for at least 8 hours. Fasting plasma glucose results between 100 to 125 mg/dL indicate increased risk for diabetes (prediabetes).Fasting plasma glucose results greater than or equal to 126 mg/dL meet the criteria for diagnosis of diabetes. In the absence of unequivocal hyperglycemia, results should be confirmed by repeat testing. In a patient with classic symptoms of hyperglycemia or hyperglycemic crisis, random plasma glucose results greater than or equal to 200 mg/dL meet the criteria for diagnosis of diabetes.Reference: Standards of Medical Care in Diabetes 2016, [place] [employer]. Diabetes Care. 2016.39(Suppl 1). Performed By: #### 2 4321-2, 2776-04, ####[facility] LABORATORYCLIA [id number] [place] [address] [place] Potassium [Moles/Vol] 3.6 mmol/L Low 3.7-5.1 [facility] Comment on above: Order Comment: Sharath lozano Type: BLOOD SPECIMENOrdering Facility: [facility] Address: [address] [place] [address] Performed By: #### 2 4321-2, 2776-04, ####[facility] RENSSELAERCLIA [id number] [place] [address] [place] Sodium [Moles/Vol] 131 mmol/L Low 136-144 [facility] Comment on above: Order Comment: Sharath lozano Type: BLOOD SPECIMENOrdering Facility: [facility] Address: [address] [place] [address] Performed By: #### 2 4321-2, 2776-04, ####[facility] LABORATORYCLIA [id number] [place] [address] [place] Urea nitrogen [Mass/Vol] 10 mg/dL Normal 7-21 [facility] Comment on above: Order Comment: Sharath lozano Type: BLOOD SPECIMENOrdering Facility: [facility] Address: [address] [address] Performed By: #### 2 4321-2, 2776-04, ####[facility] LABORATORYCLIA [id number] [place] [address] [place] Basophil percentageon 2021 Basophil percentage 10-25 SEEN /hpf 0-5 [facility] Work Phone: Bilirubin Test strip Ql (U)o n 10-07-2021 Bilirubin Ql (U) Negative Negative [facility] Work Phone: CBC panel Auto (Bld)on 10-07 Erythrocyte distribution width (RBC) [Ratio] 13.3 % Normal 11.5-15.0 [facility] Comment on above: Order Comment: Speci men Type: BLOOD SPECIMENOrdering Facility: [facility] Address: [address] [place] [address] Performed By: #### 5 8410-2 ####[facility] LABORATORYCLIA [id number] [address] [place] Hematocrit (Bld) [Volume fraction] 28.4 % Low 36.0-46.0 [facility] Comment on above: Order Comment: Speci men Type: BLOOD SPECIMENOrdering Facility: [facility] Address: [address] [place] [address] Performed By: #### 5 8410-2 ####[facility] LABORATORYCLIA [id number] [address] [place] Hemoglobin (Bld) [Mass/Vol] 9.6 g/dL Low 11.5-15.5 [facility] Comment on above: Order Comment: Speci men Type: BLOOD SPECIMENOrdering Facility: [facility] Address: [address] [place] [address] Performed By: #### 5 8410-2 ####[facility] LABORATORYCLIA [id number] [address] [place] MCH (RBC) [Entitic mass] 32.1 pg Normal 26.0-34.0 [facility] Comment on above: Order Comment: Speci men Type: BLOOD SPECIMENOrdering Facility: [facility] Address: [address] [place] [address] Performed By: #### 5 8410-2 ####[facility] LABORATORYCLIA [id number] [address] STATES [facility] MCHC (RBC) [Mass/Vol] 33.8 g/dL Normal 30.5-36.0 [facility] Comment on above: Order Comment: Speci men Type: BLOOD SPECIMENOrdering Facility: [facility] Address: [address] [place] [address] Performed By: #### 5 8410-2 ####[facility] LABORATORYCLIA [id number] [address] MCV (RBC) [Entitic vol] 95.0 fL Normal 80.0-100.0 [facility] Comment on above: Order Comment: Speci men Type: BLOOD SPECIMENOrdering Facility: [facility] Address: [address] [place] [address] Performed By: #### 5 8410-2 ####[facility] LABORATORYCLIA [id number] [address] Nucleated RBC (Bld) [#/Vol] 10*3/uL Normal <0.01 [facility] Comment on above: Order Comment: Speci men Type: BLOOD SPECIMENOrdering Facility: [facility] Address: [address] [place] [address] Performed By: #### 5 8410-2 ####[facility] LABORATORYCLIA [id number] [address] [place] Platelet mean volume (Bld) [Entitic vol] 9.7 fL Normal 9.0-12.7 [facility] Comment on above: Order Comment: Speci men Type: BLOOD SPECIMENOrdering Facility: [facility] Address: [address] [place] [address] Performed By: #### 5 8410-2 ####[facility] LABORATORYCLIA [id number] [address] [place] Platelets (Bld) [#/Vol] 266 10*3/uL Normal 150-400 [facility] Comment on above: Order Comment: Speci men Type: BLOOD SPECIMENOrdering Facility: [facility] Address: [address] [place] [address] Performed By: #### 5 8410-2 ####[facility] LABORATORYCLIA [id number] [address] RBC (Bld) [#/Vol] 2.99 10*6/uL Low 3.90-5.20 [facility] Comment on above: Order Comment: Speci men Type: BLOOD SPECIMENOrdering Facility: [facility] Address: [address] [place] [address] Performed By: #### 5 8410-2 ####[facility] LABORATORYCLIA [id number] [address] WBC (Bld) [#/Vol] 8.53 10*3/uL Normal 3.70-11.00 [facility] Comment on above: Order Comment: Speci men Type: BLOOD SPECIMENOrdering Facility: [facility] Address: [address] [place] [address] Performed By: #### 5 8410-2 ####[facility] LABORATORYCLIA [id number] [address] Erythrocyte distribution width (RBC) [Ratio] 13.2 % Normal 11.5-15.0 [facility] Comment on above: Order Comment: Speci men Type: BLOOD SPECIMENOrdering Facility: [facility] Address: [address] [place] [address] Performed By: #### 5 8410-2 ####[facility] LABORATORYCLIA [id number] [address] Hematocrit (Bld) [Volume fraction] 29.7 % Low 36.0-46.0 [facility] Comment on above: Order Comment: Speci men Type: BLOOD SPECIMENOrdering Facility: [facility] Address: [address] [place] [address] Performed By: #### 5 8410-2 ####[facility] LABORATORYCLIA [id number] [address] OF [facility] Hemoglobin (Bld) [Mass/Vol] 10.2 g/dL Low 11.5-15.5 [facility] Comment on above: Order Comment: Speci men Type: BLOOD SPECIMENOrdering Facility: [facility] Address: [address] [place] [address] Performed By: #### 5 8410-2 ####[facility] LABORATORYCLIA [id number] [address] MCH (RBC) [Entitic mass] 32.4 pg Normal 26.0-34.0 [facility] Comment on above: Order Comment: Speci men Type: BLOOD SPECIMENOrdering Facility: [facility] Address: [address] [place] [address] Performed By: #### 5 8410-2 ####[facility] LABORATORYCLIA [id number] [address] MCHC (RBC) [Mass/Vol] 34.3 g/dL Normal 30.5-36.0 [facility] Comment on above: Order Comment: Speci men Type: BLOOD SPECIMENOrdering Facility: [facility] Address: [address] [place] [address] Performed By: #### 5 8410-2 ####[facility] LABORATORYCLIA [id number] [address] MCV (RBC) [Entitic vol] 94.3 fL Normal 80.0-100.0 [facility] Comment on above: Order Comment: Speci men Type: BLOOD SPECIMENOrdering Facility: [facility] Address: [address] [place] [address] Performed By: #### 5 8410-2 ####[facility] LABORATORYCLIA [id number] [address] Nucleated RBC (Bld) [#/Vol] 10*3/uL Normal <0.01 [facility] Comment on above: Order Comment: Speci men Type: BLOOD SPECIMENOrdering Facility: [facility] Address: [address] [place] [address] Performed By: #### 5 8410-2 ####[facility] LABORATORYCLIA [id number] [address] Platelet mean volume (Bld) [Entitic vol] 9.9 fL Normal 9.0-12.7 [facility] Comment on above: Order Comment: Speci men Type: BLOOD SPECIMENOrdering Facility: [facility] Address: [address] [place] [address] Performed By: #### 5 8410-2 ####[facility] LABORATORYCLIA [id number] [address] [place] Platelets (Bld) [#/Vol] 308 10*3/uL Normal 150-400 [facility] Comment on above: Order Comment: Speci men Type: BLOOD SPECIMENOrdering Facility: [facility] Address: [address] [place] [address] Performed By: #### 5 8410-2 ####[facility] LABORATORYCLIA [id number] [address] [place] RBC (Bld) [#/Vol] 3.15 10*6/uL Low 3.90-5.20 [facility] Comment on above: Order Comment: Speci men Type: BLOOD SPECIMENOrdering Facility: [facility] Address: [address] [place] [address] Performed By: #### 5 8410-2 ####[facility] LABORATORYCLIA [id number] [address] [place] WBC (Bld) [#/Vol] 18.90 10*3/uL High 3.70-11.00 [facility] Comment on above: Order Comment: Speci men Type: BLOOD SPECIMENOrdering Facility: [facility] Address: [address] [place] [address] Performed By: #### 5 8410-2 ####[facility] LABORATORYCLIA [id number] [address] [place] CONFIRM BLOOD TYPEon 022 ABO A Normal [facility] Comment on above: Order Comment: Speci men Type: BLOOD SPECIMENOrdering Facility: [facility] Address: [address] [place] [address] Performed By: #### C ONABO ####[facility] BLOOD BANKCLIA [id number] [address] [place] Rh Nom (Bld) Positive Normal [facility] Comment on above: Order Comment: Speci men Type: BLOOD SPECIMENOrdering Facility: [facility] Address: [address] [place] [address] Performed By: #### C ONABO ####[facility] BLOOD BANKCLIA [id number] [address] [place] CONSULTon 10-07-2021 CONSULT Normal [facility] CONSULT Normal [facility] CT BRAIN WO IVCONon 10-08-19 CT BRAIN WO IVCON Normal [facility] CT BRAIN WO IVCON Normal [facility] CT CERVICAL SPINE WO IVCONon 10-07-2021 CT CERVICAL SPINE WO IVCON Normal [facility] CT CHEST WO IVCONon 10-08-19 CT CHEST WO IVCON Normal [facility] CTA HEAD W IVCONon 2 CTA HEAD W IVCON Normal [facility] CTA NECK W IVCONon 2 CTA NECK W IVCON Normal [facility] Calcium.ionized [Moles/Vol]o n 10-07-2021 Calcium.ionized (BldV) [Mass/Vol] 1.00 mmol/L Low 1.08-1.30 [facility] Comment on above: Order Comment: Speci men Type: BLOOD SPECIMENOrdering Facility: [facility] Address: [address] [place] [address] Performed By: #### 1 995-0 ####[facility] LABORATORYCLIA [id number] [address] [place] Calcium.ionized adjusted to pH 7.4 (Bld) [Moles/Vol] 0.96 mmol/L Low 1.08-1.30 [facility] Comment on above: Order Comment: Speci men Type: BLOOD SPECIMENOrdering Facility: [facility] Address: [address] [place] [address] Performed By: #### 1 995-0 ####[facility] LABORATORYCLIA [id number] [address] Comprehensive metabolic 2000 panelon 10-07-2021 Albumin [Mass/Vol] 4.0 g/dL Normal 3.9-4.9 [facility] Comment on above: Order Comment: Speci men Type: BLOOD SPECIMENOrdering Facility: [facility] Address: [address] [place] [address] Performed By: #### 2 4323-8 ####[facility] LABORATORYCLIA [id number] [address] [place] ALP [Catalytic activity/Vol] 66 U/L Normal 34-123 [facility] Comment on above: Order Comment: Speci men Type: BLOOD SPECIMENOrdering Facility: [facility] Address: [address] [place] [address] Performed By: #### 2 4323-8 ####[facility] LABORATORYCLIA [id number] [address] ALT With P-5'-P [Catalytic activity/Vol] 21 U/L Normal 7-38 [facility] Comment on above: Order Comment: Speci men Type: BLOOD SPECIMENOrdering Facility: [facility] Address: [address] [place] [address] Performed By: #### 2 4323-8 ####[facility] LABORATORYCLIA [id number] [address] STATES [facility] Anion gap [Moles/Vol] 10 mmol/L Normal 9-18 [facility] Comment on above: Order Comment: Speci men Type: BLOOD SPECIMENOrdering Facility: [facility] Address: [address] [place] [address] Performed By: #### 2 4323-8 ####[facility]ORATORYCLIA [id number] [address] STATES OF [facility] AST With P-5'-P [Catalytic activity/Vol] 39 U/L High 13-35 [facility] Comment on above: Order Comment: Speci men Type: BLOOD SPECIMENOrdering Facility: [facility] Address: [address] [place] [address] Performed By: #### 2 4323-8 ####[facility] LABORATORYCLIA [id number] [address] [place] Bilirubin [Mass/Vol] 0.5 mg/dL Normal 0.2-1.3 [facility] Comment on above: Order Comment: Speci men Type: BLOOD SPECIMENOrdering Facility: [facility] Address: [address] [place] [address] Performed By: #### 2 4323-8 ####[facility] LABORATORYCLIA [id number] [address] [place] Calcium [Mass/Vol] 8.1 mg/dL Low 8.5-10.2 [facility] Comment on above: Order Comment: Speci men Type: BLOOD SPECIMENOrdering Facility: [facility] Address: [address] [place] [address] Performed By: #### 2 4323-8 ####[facility] LABORATORYCLIA [id number] [place] [address] [place] Chloride [Moles/Vol] 93 mmol/L Low 97-105 [facility] Comment on above: Order Comment: Speci men Type: BLOOD SPECIMENOrdering Facility: [facility] Address: [address] [place] [address] Performed By: #### 2 4323-8 ####[facility]ORATORYCLIA [id number] [place] [address] [place] CO2 [Moles/Vol] 25 mmol/L Normal 22-30 [facility] Comment on above: Order Comment: Speci men Type: BLOOD SPECIMENOrdering Facility: [facility] Address: [address] [address] Performed By: #### 2 4323-8 ####[facility]SELAERCLIA [id number] [address] Creatinine [Mass/Vol] 0.60 mg/dL Normal 0.58-0.96 [facility] Comment on above: Order Comment: Speci men Type: BLOOD SPECIMENOrdering Facility: [facility] Address: [address] [place] [address] Performed By: #### 2 4323-8 ####[facility]PITALIA [id number] [address] ESTIMATED GLOMERULAR FILTRATION RATE 94 mL/min/1.73m??? Normal >=60 [facility] Comment on above: Order Comment: Speci men Type: BLOOD SPECIMENOrdering Facility: [facility] Address: [address] [place] [address] Result Comment: Lulu mated Glomerular Filtration Rate (eGFR) is calculated using the 2020 CKD-EPI creatinine equation. This equation utilizes serum creatinine, sex, and age as parameters. The creatinine assay has traceable calibration to isotope dilution-mass spectrometry. Refer to KDIGO guidelines for clinical interpretation. In patients with unstable renal function, e.g. those with acute kidney injury, the eGFR may not accurately reflect actual GFR. Performed By: #### 2 4323-8 ####[facility] LABORATORYCLIA [id number] [address] Glucose [Mass/Vol] 143 mg/dL High 74-99 [facility] Comment on above: Order Comment: Sharath lozano Type: BLOOD SPECIMENOrdering Facility: [facility] Address: [address] [place] [address] Result Comment: The [place] Diabetes [employer] (ADA) provides guidance for cutoff values for fasting glucose and random glucose. The ADA defines fasting as no caloric intake for at least 8 hours. Fasting plasma glucose results between 100 to 125 mg/dL indicate increased risk for diabetes (prediabetes).Fasting plasma glucose results greater than or equal to 126 mg/dL meet the criteria for diagnosis of diabetes. In the absence of unequivocal hyperglycemia, results should be confirmed by repeat testing. In a patient with classic symptoms of hyperglycemia or hyperglycemic crisis, random plasma glucose results greater than or equal to 200 mg/dL meet the criteria for diagnosis of diabetes.Reference: Standards of Medical Care in Diabetes 2016, [place] [employer]. Diabetes Care. 2016.39(Suppl 1). Performed By: #### 2 4323-8 ####[facility] LABORATORYCLIA [id number] [address] STATES OF [facility] Potassium [Moles/Vol] 3.8 mmol/L Normal 3.7-5.1 [facility] Comment on above: Order Comment: Sharath lozano Type: BLOOD SPECIMENOrdering Facility: [facility] Address: [address] [place] [address] Performed By: #### 2 4323-8 ####[facility] LABORATORYCLIA [id number] [place] [address] [place] Protein [Mass/Vol] 6.0 g/dL Low 6.3-8.0 [facility] Comment on above: Order Comment: Sharath lozano Type: BLOOD SPECIMENOrdering Facility: [facility] Address: [address] [place] [address] Performed By: #### 2 4323-8 ####[facility] LABORATORYCLIA [id number] [address] [place] Sodium [Moles/Vol] 128 mmol/L Low 136-144 [facility] Comment on above: Order Comment: Speci men Type: BLOOD SPECIMENOrdering Facility: [facility] Address: [address] [address] Performed By: #### 2 4323-8 ####[facility] LABORATORYCLIA [id number] [place] [address] [place] Urea nitrogen [Mass/Vol] 16 mg/dL Normal 7-21 [facility] Comment on above: Order Comment: Cathyi marta Type: BLOOD SPECIMENOrdering Facility: [facility] Address: [address] [place], [place] [id number] Performed By: #### 2 4323-8 ####[facility] LABORATORYCLIA [id number] [address] ED NOTEon 10-07-2021 ED NOTE HNO ID: [id number] Author: Catherine Covarrubias RN Service: ? Author Type: Registered Nurse Type: ED Notes Filed: 10/07/2021 2:48 AM Note Text: Bed: 19-ED Expected date: Expected time: Means of arrival: Comments: T2-transfer Normal [facility] ED NOTE HNO ID: [id number] Author: Giuliana Rodriguez RN Service: Emergency Medicine Author Type: Registered Nurse Type: ED Notes Filed: 10/07/2021 2:36 AM Note Text: Chest tube + for bloody output Levin +clear yellow urine Normal [facility] ED NOTE Normal [facility] ED PROV NOTEon 10-07-2021 ED PROV NOTE Normal [facility] Ethanol SerPl-mCncon 022 Ethanol [Mass/Vol] mg/dL Normal <11 [facility] Comment on above: Order Comment: Speci men Type: BLOOD SPECIMENOrdering Facility: [facility] Address: [address] [place] [address] Performed By: #### 5 643-2 ####[facility] LABORATORYCLIA [id number] [address] HISTORY PHYSICALon HISTORY PHYSICAL Normal [facility] INR in Blood by Coagulation assayon 10-07-2021 INR Coag (Bld) [Relative time] 1.2 {INR} [facility] Work Phone: Ketones Test strip Ql (U)on 10-07-2021 Ketones Ql (U) Negative Negative [facility] Work Phone: Laboratory - Coagulationon 0 10-07-2021 aPTT Coag (Bld) [Time] 29.6 s 24.1-36.2 [facility] Work Phone: PT Coag (PPP) [Time] 14.6 s 11.7-14.9 [facility] Work Phone: Magnesium SerPl-mCncon 10-07 Magnesium [Mass/Vol] 2.2 mg/dL Normal 1.7-2.3 [facility] Comment on above: Order Comment: Sharath lozano Type: BLOOD SPECIMENOrdering Facility: [facility] Address: [address] [place], [place] [phone] Performed By: #### 2 4321-2, 2777-1, 45849-0 ####[facility] LABORATORYCLIA [id number] [place] [address] [place] Magnesium [Mass/Vol] 1.5 mg/dL Low 1.7-2.3 [facility] Comment on above: Order Comment: Sharath lozano Type: BLOOD SPECIMENOrdering Facility: [facility] Address: [address] [place], [place] [phone] Performed By: #### 1 9123-9, 2777-1 ####[facility] LABORATORYCLIA [id number] [place] [address] [place] Mucus LM Ql (Urine sed)on Mucus Ql (Urine sed) 0 SEEN /hpf [facility] Work Phone: Nitrite Test strip Ql (U)on 10-07-2021 Nitrite Ql (U) Negative Negative [facility] Work Phone: PT panel Coag (PPP)on 2021 INR Coag (PPP) [Relative time] 1.0 {INR} Normal 0.9-1.3 [facility] Comment on above: Order Comment: Sharath lozano Type: BLOOD SPECIMENOrdering Facility: [facility] Address: [address] [place] [address] Result Comment: Ana min K Antagonist (VKA) Therapeutic Range: INR 2 to 3 (Target INR of 2.5)Note: For patients treated with VKA drugs, such as warfarin, the [employer] 2012 Guideline recommends a therapeutic INR range of 2 to 3 (target INR of 2.5). This recommendation includes high-risk patients with antiphospholipid syndrome with previous arterial or venous thromboembolism, current-generation mechanical or bioprosthetic aortic heart valve replacement.Note: Patients with mechanical aortic valve replacement and additional risk factors for thromboembolic events (atrial fibrillation, previous thromboembolism, LV dysfunction, hypercoagulable conditions) or an older generation mechanical AVR (i.e., ball in-Cage) or any mechanical MVR should have a INR therapeutic range of 2.5 to 3.5 (target INR of 3).Tierra GH, et al. Chest 2012, 141:7S-47SNishimura RA, et al. [facility] 2017, 70: 252-289 Performed By: #### 1 4979-9, 55703-0 ####[facility] LABORATORYCLIA [id number] [place] [address] [place] PT Coag (PPP) [Time] 11.1 s Normal 9.7-13.0 [facility] Comment on above: Order Comment: Sharath lozano Type: BLOOD SPECIMENOrdering Facility: [facility] Address: [address] [place] [address] Performed By: #### 1 4979-9, 15159-1 ####[facility]SELAERCLIA [id number] [place] [address] [place] Phosphate SerPl-mCncon 10-07 Phosphate [Mass/Vol] 3.4 mg/dL Normal 2.7-4.8 [facility] Comment on above: Order Comment: Sharath lozano Type: BLOOD SPECIMENOrdering Facility: [facility] Address: [address] [place] [address] Performed By: #### 2 4321-2, 2777-1, 70331-1 ####[facility] LABORATORYCLIA [id number] [place] [address] [place] [facility] [place] Phosphate [Mass/Vol] 3.4 mg/dL Normal 2.7-4.8 [facility] Comment on above: Order Comment: Sharath lozano Type: BLOOD SPECIMENOrdering Facility: [facility] Address: [address] [address] Performed By: #### 1 9123-9, 2777-1 ####[facility] LABORATORYCLIA [id number] [place] [address] [place] Protein Test strip Ql (U)on 10-07-2021 Protein Ql (U) 15 mg/dl Negative [facility] Work Phone: SARS-CoV-2 RNA Resp Ql LEONA+p robeon 10-07-2021 SARS-CoV-2 (COVID-19) RNA LEONA+probe Ql (Resp) COVID 19 RESULT: SARS-CoV-2 (Agent of COVID-19) Not Detected by RT-PCR or equivalent method. This test has been authorized by FDA under an Emergency Use Authorization (EUA). Normal [facility] Comment on above: Performed By: #### 9 4500-6 ####[facility] LABORATORYCLIA [id number] [address] [place] STAPH AUREUS PCRon 2 S. aureus and MRSA panel LEONA+probe (Nose) Normal Negative [facility] Comment on above: Order Comment: Speci men Type: SWAB OF INTERNAL NOSEOrdering Facility: [facility] Address: [address] [place] [address] Result Comment: Nega tive for Staphylococcus aureus by PCR.Negative for MRSA by PCR Performed By: #### S APCR ####[facility] LABORATORYCLIA [id number] [address] [place] Squamous epithelial cells de tection in urine sediment by light microscopyon 10-07-2021 Epithelial cells.squamous LM Ql (Urine sed) 0 SEEN /hpf 5-10 [facility] Work Phone: TOX SCREEN ROUT URon 022 Amphetamines Confirm (U) [Mass/Vol] Negative Normal Negative [facility] Comment on above: Order Comment: Speci men Type: URINE SPECIMENOrdering Facility: [facility] Address: [address] [place] [address] Result Comment: Cuto ff threshold at 1000 ng/mL. Performed By: #### U TOX2 ####[facility]ORATORYCLIA [id number] [address] [place] BARBITURATES, URINE Negative Normal Negative [facility] Comment on above: Order Comment: Speci men Type: URINE SPECIMENOrdering Facility: [facility] Address: [address] [place] [address] Result Comment: Cuto ff threshold at 200 ng/mL. Performed By: #### U TOX2 ####[facility]ORATORYCLIA [id number] [address] [place] BENZODIAZEPINES, UR Negative Normal Negative [facility] Comment on above: Order Comment: Speci men Type: URINE SPECIMENOrdering Facility: [facility] Address: [address] [place] [address] Result Comment: Cuto ff threshold at 200 ng/mL. Performed By: #### U TOX2 ####[facility] LABORATORYCLIA [id number] [address] CANNABINOIDS,URINE Negative Normal Negative [facility] Comment on above: Order Comment: Speci men Type: URINE SPECIMENOrdering Facility: [facility] Address: [address] [place] [address] Result Comment: Cuto ff threshold at 50 ng/mL. Performed By: #### U TOX2 ####[facility]ORATORYCLIA [id number] [address] Cocaine Ql (U) Negative Normal Negative [facility] Comment on above: Order Comment: Speci men Type: URINE SPECIMENOrdering Facility: [facility] Address: [address] [place] [address] Result Comment: Cuto ff threshold at 300 ng/mL. Performed By: #### U TOX2 ####[facility]ORATORYCLIA [id number] [address] Ethanol (U) [Mass/Vol] <11 Normal <11 [facility] Comment on above: Order Comment: Speci men Type: URINE SPECIMENOrdering Facility: [facility] Address: [address] [place] [address] Performed By: #### U TOX2 ####[facility] LABORATORYCLIA [id number] [address] Opiates Screen Ql (U) Positive Abnormal Negative [facility] Comment on above: Order Comment: Speci men Type: URINE SPECIMENOrdering Facility: [facility] Address: [address] [place] [address] Result Comment: Cuto ff threshold at 300 ng/mL. Performed By: #### U TOX2 ####[facility]ATORYCLIA [id number] [address] oxyCODONE cutoff Screen (U) [Mass/Vol] Negative Normal Negative [facility] Comment on above: Order Comment: Speci men Type: URINE SPECIMENOrdering Facility: [facility] Address: [address] [place] [address] Result Comment: Cuto ff threshold at 100 ng/mL. Performed By: #### U TOX2 ####[facility] LABORATORYCLIA [id number] [address] Phencyclidine Ql (U) Negative Normal Negative [facility] Comment on above: Order Comment: Speci men Type: URINE SPECIMENOrdering Facility: [facility] Address: [address] [place] [address] Result Comment: Cuto ff threshold at 25 ng/mL. Performed By: #### U TOX2 ####[facility] LABORATORYCLIA [id number] [address] TYPE + SCREENon 10-07-2021 ABO A Normal [facility] Comment on above: Order Comment: Speci men Type: BLOOD SPECIMENOrdering Facility: [facility] Address: [address] [place] [address] Performed By: #### T SCR ####[facility] BLOOD BANKCLIA [id number] [address] HISTORICAL AB SCR STATUS Negative Normal [facility] Comment on above: Order Comment: Speci men Type: BLOOD SPECIMENOrdering Facility: [facility] Address: [address] [place] [address] Performed By: #### T SCR ####[facility] BLOOD BANKCLIA [id number] [address] Rh Nom (Bld) Positive Normal [facility] Comment on above: Order Comment: Speci men Type: BLOOD SPECIMENOrdering Facility: [facility] Address: [address] [place] [address] Performed By: #### T SCR ####[facility] BLOOD BANKCLIA [id number] [address] TYPE AND SCREEN EXPIRATION 10/10/2021 23:59 Normal [facility] Comment on above: Order Comment: Speci men Type: BLOOD SPECIMENOrdering Facility: [facility] Address: [address] [place] [address] Performed By: #### T SCR ####[facility] BLOOD BANKCLIA [id number] [address] Urinalysis complete panel (U )on 10-07-2021 Bilirubin Ql (U) Negative Normal Negative [facility] Comment on above: Order Comment: Speci men Type: URINE SPECIMENOrdering Facility: [facility] Address: [address] [place] [address] Performed By: #### 2 4356-8 ####[facility] LABORATORYCLIA [id number] [address] [place] Clarity (Unsp spec) Clear Normal Clear [facility] Comment on above: Order Comment: Speci men Type: URINE SPECIMENOrdering Facility: [facility] Address: [address] [place] [address] Performed By: #### 2 4356-8 ####[facility] LABORATORYCLIA [id number] [address] Color (U) Light Yellow Normal yellow [facility] Comment on above: Order Comment: Speci men Type: URINE SPECIMENOrdering Facility: [facility] Address: [address] [address] Performed By: #### 2 4356-8 ####[facility]ATORYCLIA [id number] [address] [place] Glucose Test strip (U) [Mass/Vol] Negative Normal Negative [facility] Comment on above: Order Comment: Speci men Type: URINE SPECIMENOrdering Facility: [facility] Address: [address] [place] [address] Performed By: #### 2 4356-8 ####[facility] LABORATORYCLIA [id number] [address] [place] Hemoglobin Ql (U) Negative Normal Negative [facility] Comment on above: Order Comment: Speci men Type: URINE SPECIMENOrdering Facility: [facility] Address: [address] [place] [address] Performed By: #### 2 4356-8 ####[facility] LABORATORYCLIA [id number] [address] [place] Ketones Ql (U) Negative Normal Negative [facility] Comment on above: Order Comment: Speci men Type: URINE SPECIMENOrdering Facility: [facility] Address: [address] [place] [address] Performed By: #### 2 4356-8 ####[facility] LABORATORYCLIA [id number] [address] Leukocyte esterase Test strip Ql (U) 500 Karson/mL Abnormal Negative [facility] Comment on above: Order Comment: Speci men Type: URINE SPECIMENOrdering Facility: [facility] Address: [address] [place] [address] Performed By: #### 2 4356-8 ####[facility]ORATORYCLIA [id number] [place] [address] [place] Nitrite Ql (U) Negative Normal Negative [facility] Comment on above: Order Comment: Speci men Type: URINE SPECIMENOrdering Facility: [facility] Address: [address] [address] Performed By: #### 2 4356-8 ####[facility] LABORATORYCLIA [id number] [address] [place] pH (U) 6.5 [pH] Normal 5.0-8.0 [facility] Comment on above: Order Comment: Speci men Type: URINE SPECIMENOrdering Facility: [facility] Address: [address] [place] [address] Performed By: #### 2 4356-8 ####[facility] LABORATORYCLIA [id number] [place] [address] [place] Protein (U) [Mass/Vol] Negative Normal Negative [facility] Comment on above: Order Comment: Speci men Type: URINE SPECIMENOrdering Facility: [facility] Address: [address] [place] [address] Performed By: #### 2 4356-8 ####[facility] LABORATORYCLIA [id number] [address] [place] RBC LM.HPF (Urine sed) [#/Area] 0-3 /HPF Normal 0-3 /HPF [facility] Comment on above: Order Comment: Speci men Type: URINE SPECIMENOrdering Facility: [facility] Address: [address] [place] [address] Performed By: #### 2 4356-8 ####[facility] LABORATORYCLIA [id number] [address] [place] Specific gravity (U) [Rel density] >1.040 High 1.005-1.030 [facility] Comment on above: Order Comment: Speci men Type: URINE SPECIMENOrdering Facility: [facility] Address: [address] [place] [address] Performed By: #### 2 4356-8 ####[facility] LABORATORYCLIA [id number] [address] [place] Urobilinogen Ql (U) Normal Normal Negative [facility] Comment on above: Order Comment: Speci men Type: URINE SPECIMENOrdering Facility: [facility] Address: [address] [place] [address] Performed By: #### 2 4356-8 ####[facility] LABORATORYCLIA [id number] [address] WBC LM.HPF (Urine sed) [#/Area] /[HPF] Abnormal 0-5 /HPF [facility] Comment on above: Order Comment: Speci men Type: URINE SPECIMENOrdering Facility: [facility] Address: [address] [place] [address] Performed By: #### 2 4356-8 ####[facility] LABORATORYCLIA [id number] [address] Urine blood detectionon 09-20 RBC Ql (U) Negative Negative [facility] Work Phone: RBC Ql (U) 0-5 SEEN /hpf 0-5 [facility] Work Phone: Urine clarityon 10-07-2021 Clarity (U) Clear Clear [facility] Work Phone: Urine color determinationon 10-07-2021 Color (U) Yellow Yellow [facility] Work Phone: Urine glucose detectionon Glucose Ql (U) Normal mg/dl Normal [facility] Work Phone: [phone] Urine leukocyte esterase det ection by dipstickon 10-07-2021 Leukocyte esterase Test strip Ql (U) 100 /ul Negative [facility] Work Phone: Urine pHon 10-07-2021 pH (U) 7.0 [pH] 5.0 - 8.0 [facility] Work Phone: Urine sediment bacteria coun t by microscopy (number/high power field)on 10-07-2021 Bacteria LM.HPF (Urine sed) [#/Area] 3 /[HPF] None Seen [facility] Work Phone: Urine specific gravity measu rementon 10-07-2021 Specific gravity (U) [Rel density] 1.010 1.002-1.030 [facility] Work Phone: Urobilinogen Auto test strip Ql (U)on 10-07-2021 Urobilinogen Ql (U) Normal mg/dl Normal [facility] Work Phone: XR CHEST 1V FRONTALon 2021 XR CHEST 1V FRONTAL Normal [facility] XR KNEE 2V AP/LAT RTon 10-07 XR KNEE 2V AP/LAT RT Normal [facility] aPTT PPPon 10-07-2021 aPTT Coag (PPP) [Time] 26.3 s Normal 23.0-32.4 [facility] Comment on above: Order Comment: Speci men Type: BLOOD SPECIMENOrdering Facility: [facility] Address: [address] [place], [place] [address] Performed By: #### 1 4979-9, 38254-7 ####[facility] LABORATORYCLIA [id number] [address] [place] Absolute lymphocyte counton 10-06-2021 Lymphocytes Auto (Unsp spec) [#/Vol] 0.86 10*3/uL 0.83-4.51 [facility] Work Phone: Basophil percentageon 2021 Basophils/100 WBC (Bld) 0.3 % 0-1 [facility] Work Phone: Bilirubin [Mass/Vol] 0.50 mg/dL 0.20-1.00 [facility] Work Phone: Comment on above: For patients on eltr ombopag therapy, use of Dimension [place] TBIL is not recommended. Chloride [Moles/Vol] 96 mmol/L 98-107 [facility] Work Phone: Eosinophils/100 WBC (Bld) 0.3 % 0-5 [facility] Work Phone: Glucose [Mass/Vol] 169 mg/dL 74-106 [facility] Work Phone: Comment on above: Fasting Glucose resu lt greater than or equal to 126 mg/dL suggests DIABETES MELLITUS per A.D.A. criteria. Neutrophils (Bld) [#/Vol] 28.5 10*3/uL 2.0-7.7 [facility] Work Phone: Neutrophils/100 WBC (Bld) 90.5 % 47-70 [facility] Work Phone: [phone] Potassium [Moles/Vol] 3.1 mmol/L 3.5-5.1 [facility] Work Phone: [phone] Protein [Mass/Vol] 6.5 g/dL 6.4-8.2 [facility] Work Phone: [phone] Sodium [Moles/Vol] 130 mmol/L 136-145 [facility] Work Phone: [phone] WBC (Bld) [#/Vol] 31.5 10*3/uL 4.4-11.0 [facility] Work Phone: [phone] Comment on above: CRITICAL VALUE VERIF IED. CALLED TO GIANNA CHAIREZ10/06/21 2258 Anand Bolton.RESULTS READ BACK BY SAME . Blood erythrocytes count (nu mber/volume)on 10-06-2021 RBC (Bld) [#/Vol] 3.16 10*6/uL 4.2-5.4 [facility] Work Phone: [phone] Blood hemoglobin measurement (mass/volume)on 10-06-2021 Hemoglobin (Bld) [Mass/Vol] 10.3 g/dL 12.0-15.0 [facility] Work Phone: Blood lymphocytes/100 leukoc yteson 10-06-2021 Lymphocytes/100 WBC (Bld) 2.7 % 19-41 [facility] Work Phone: [phone] Blood manual differential co mment interpretation (narrative result)on 10-06-2021 Manual differential comment Donnie (Bld) [Interp] SCANNED [facility] Work Phone: Blood monocytes/100 leukocyt eson 10-06-2021 Monocytes/100 WBC (Bld) 5.3 % 0-10 [facility] Work Phone: [phone] Blood platelet mean volumeon 10-06-2021 Platelet mean volume (Bld) [Entitic vol] 9.9 fL 6.2-12.0 [facility] Work Phone: [phone] Determination of erythrocyte mean corpuscular volume (MCV)on 10-06-2021 MCV (RBC) [Entitic vol] 95.6 fL 81-99 [facility] Work Phone: [phone] Hematocrit Auto (Bld) [Volum e fraction]on 10-06-2021 Hematocrit (Bld) [Volume fraction] 30.2 % 37-47 [facility] Work Phone: [phone] Laboratory - Chemistry and C hemistry - challengeon 10-06-2021 ALP [Catalytic activity/Vol] 62 U/L 45-117 [facility] Work Phone: [phone] ALT [Catalytic activity/Vol] 26 U/L 13-56 [facility] Work Phone: [phone] CO2 [Moles/Vol] 27.0 mmol/L 21.0-32.0 [facility] Work Phone: [phone] Globulin (S) [Mass/Vol] 2.9 g/dL 2.2-4.2 [facility] Work Phone: [phone] Urea nitrogen/Creatinine [Mass ratio] 23.8 mg/mg 10-20 [facility] Work Phone: [phone] Laboratory - Hematology and Cell countson 10-06-2021 Erythrocyte distribution width (RBC) [Entitic vol] 45.3 fL 35.1-43.9 [facility] Work Phone: [phone] Erythrocyte distribution width (RBC) [Ratio] 12.8 % 11.6-14.6 [facility] Work Phone: [phone] Immature granulocytes/100 WBC (Bld) 0.900 % 0.0-0.9 [facility] Work Phone: [phone] Comment on above: IG% - Immature Granu locytes (promyelocytes, myelocytes and metamyelocytes) > 1% indicates that a LEFT SHIFT is Present. MCH (RBC) [Entitic mass] 32.6 pg 27.0-32.0 [facility] Work Phone: Nucleated RBC/100 WBC (Bld) [Ratio] 0 % 0-5 [facility] Work Phone: [phone] MCHC Auto (RBC) [Mass/Vol]on 10-06-2021 MCHC (RBC) [Mass/Vol] 34.1 g/dL 32-36 [facility] Work Phone: No Panel Informationon 10-06 Estimated Creatinine Clearance Calc 54.70 ml/min [facility] Work Phone: [phone] Estimated GFR (MDRD) Amer 85 mL/min >60 [facility] Work Phone: [phone] Comment on above: GFR Calc Estimated GFR (MDRD) Non-Af Amer 70 mL/min >60 [facility] Work Phone: [phone] Comment on above: Non- GFR Calc Ethyl Alcohol Level < 3.0 mg/dL [facility] Work Phone: Comment on above: The serum:whole bloo d ethanol ratio is approximately 1.14and varies slightly with hematocrit. Medical Alcohol reference interval and critical value innon-tolerant individuals; 50 - 100 Impairment 100 Intoxication 100 - 250 Severe Poisoning 250 - 400 Deep/possible fatal coma Platelets bldon 10-06-2021 Platelets (Bld) [#/Vol] 317 10*3/uL 150-450 [facility] Work Phone: [phone] Review by pathologiston 09-20 Pathologist review Donnie (Unsp spec) [Interp] August july [facility] Work Phone: [phone] Pathologist review Donnie (Unsp spec) [Interp] Reviewed [facility] Work Phone: [phone] Comment on above: Previous reported re sult: August july Edited by: RGOOD on 10/09/21:1330Neutrophilic leukocytosis.Normocytic anemia.Clinical correlation necessary.Greg Guerin M.D. 10/09/21 AMENDED REPORT 10/09/21 1330 PATH REV previously reported as: August Serum or plasma albumin rajni urement (mass/volume)on 10-06-2021 Albumin [Mass/Vol] 3.6 g/dL 3.2-5.0 [facility] Work Phone: [phone] Serum or plasma albumin/glob ulin mass ratioon 10-06-2021 Albumin/Globulin [Mass ratio] 1.2 {ratio} 0.9-2.4 [facility] Work Phone: [phone] Serum or plasma calcium rajni urement (mass/volume)on 10-06-2021 Calcium [Mass/Vol] 8.2 mg/dL 8.5-10.1 [facility] Work Phone: [phone] Serum or plasma creatinine m easurement (mass/volume)on 10-06-2021 Creatinine [Mass/Vol] 0.84 mg/dL 0.55-1.02 [facility] Work Phone: Comment on above: The validity of the calculated GFR & GFRAA in patients over 70 years has not been determined. Clinical correlation is essential. Serum or plasma urea nitroge n measurement (mass/volume)on 10-06-2021 Urea nitrogen [Mass/Vol] 20 mg/dL 7-18 [facility] Work Phone: [phone] Thin prep Papanicolaou smear with manual screeningon 10-06-2021 Thin prep Papanicolaou smear with manual screening 31 U/L 15-37 [facility] Work Phone: [phone] Thin prep Papanicolaou smear with manual screening 7 5-15 [facility] Work Phone: [phone] Laboratory - Chemistry and C hemistry - challengeon 07-28-2021 Free T4 [Mass/Vol] 1.04 ng/dL 0.76-1.46 [facility] [facility] Work Phone: [phone] Panel Informationon 07-28 Thyroid Stimulating Hormone (TSH) 2.21 uIU/mL 0.358-3.74 [facility] Work Phone: [phone] Influenza virus A and B RNA and SARS-CoV-2 (COVID-19) N gene panel LEONA+probe (Resp)on 07-13-2021 FLUAV RNA LEONA+probe Ql (Unsp spec) Negative Negative for Influenza A by RT-PCR [facility] FLUBV RNA LEONA+probe Ql (Unsp spec) Negative Negative for Influenza B by RT-PCR [facility] SARS-CoV-2 (COVID-19) RNA LEONA+probe Ql (Resp) SARS-CoV-2 (Agent of COVID-19) Not Detected by RT-PCR or equivalent method. Not Detected [facility] Absolute lymphocyte counton 06-11-2021 Lymphocytes Auto (Unsp spec) [#/Vol] 1.63 10*3/uL 0.83-4.51 [facility] Work Phone: Basophil percentageon 2021 Basophil percentage 0 SEEN /hpf 0-5 [facility] Work Phone: Basophils/100 WBC (Bld) 0.5 % 0-1 [facility] Work Phone: Chloride [Moles/Vol] 99 mmol/L 98-107 [facility] Work Phone: Eosinophils/100 WBC (Bld) 1.4 % 0-5 [facility] Work Phone: Glucose [Mass/Vol] 110 mg/dL 74-106 [facility] Work Phone: Comment on above: Fasting Glucose resu lt from 100 to 125 mg/dL suggests IMPAIRED HOMEOSTASIS per A.D.A. criteria. Neutrophils (Bld) [#/Vol] 9.6 10*3/uL 2.0-7.7 [facility] Work Phone: Neutrophils/100 WBC (Bld) 78.8 % 47-70 [facility] Work Phone: Potassium [Moles/Vol] 3.8 mmol/L 3.5-5.1 [facility] Work Phone: Sodium [Moles/Vol] 135 mmol/L 136-145 [facility] Work Phone: WBC (Bld) [#/Vol] 12.1 10*3/uL 4.4-11.0 [facility] Work Phone: Bilirubin Test strip Ql (U)o n 06-11-2021 Bilirubin Ql (U) Negative Negative [facility] Work Phone: Blood erythrocytes count (nu mber/volume)on 06-11-2021 RBC (Bld) [#/Vol] 3.84 10*6/uL 4.2-5.4 [facility] Work Phone: Blood hemoglobin measurement (mass/volume)on 06-11-2021 Hemoglobin (Bld) [Mass/Vol] 12.6 g/dL 12.0-15.0 [facility] Work Phone: Blood lymphocytes/100 leukoc yteson 06-11-2021 Lymphocytes/100 WBC (Bld) 13.4 % 19-41 [facility] Work Phone: Blood monocytes/100 leukocyt eson 06-11-2021 Monocytes/100 WBC (Bld) 5.6 % 0-10 [facility] Work Phone: Blood platelet mean volumeon 06-11-2021 Platelet mean volume (Bld) [Entitic vol] 10.4 fL 6.2-12.0 [facility] Work Phone: Determination of erythrocyte mean corpuscular volume (MCV)on 06-11-2021 MCV (RBC) [Entitic vol] 94.5 fL 81-99 [facility] Work Phone: Hematocrit Auto (Bld) [Volum e fraction]on 06-11-2021 Hematocrit (Bld) [Volume fraction] 36.3 % 37-47 [facility] Work Phone: Ketones Test strip Ql (U)on 06-11-2021 Ketones Ql (U) Negative Negative [facility] Work Phone: Laboratory - Chemistry and C hemistry - challengeon 06-11-2021 CO2 [Moles/Vol] 28.0 mmol/L 21.0-32.0 [facility] Work Phone: Urea nitrogen/Creatinine [Mass ratio] 27.0 mg/mg 10- [facility] Work Phone: [phone] Laboratory - Hematology and Cell countson 06-11-2021 Erythrocyte distribution width (RBC) [Entitic vol] 45.8 fL 35.1-43.9 [facility] Work Phone: [phone] Erythrocyte distribution width (RBC) [Ratio] 13.2 % 11.6-14.6 [facility] Work Phone: [phone] Immature granulocytes/100 WBC (Bld) 0.300 % 0.0-0.9 [facility] Work Phone: [phone] Comment on above: IG% - Immature Granu locytes (promyelocytes, myelocytes and metamyelocytes) > 1% indicates that a LEFT SHIFT is Present. MCH (RBC) [Entitic mass] 32.8 pg 27.0-32.0 [facility] Work Phone: [phone] Nucleated RBC/100 WBC (Bld) [Ratio] 0 % 0-5 [facility] Work Phone: [phone] MCHC Auto (RBC) [Mass/Vol]on 06-11-2021 MCHC (RBC) [Mass/Vol] 34.7 g/dL 32-36 [facility] Work Phone: [phone] Mucus LM Ql (Urine sed)on Mucus Ql (Urine sed) 0 SEEN /hpf [facility] Work Phone: [phone] Nitrite Test strip Ql (U)on 06-11-2021 Nitrite Ql (U) Negative Negative [facility] Work Phone: [phone] Panel Informationon 06-11 Estimated Creatinine Clearance Calc 42.62 ml/min [facility] Work Phone: [phone] Estimated GFR (MDRD) Amer 149 mL/min >60 [facility] Work Phone: [phone] Comment on above: GFR Calc Estimated GFR (MDRD) Non-Af Amer 123 mL/min >60 [facility] Work Phone: [phone] Comment on above: Non- GFR Calc Platelets bldon 06-11-2021 Platelets (Bld) [#/Vol] 301 10*3/uL 150-450 [facility] Work Phone: Protein Test strip Ql (U)on 06-11-2021 Protein Ql (U) Negative Negative [facility] Work Phone: [phone] Serum or plasma calcium rajni urement (mass/volume)on 06-11-2021 Calcium [Mass/Vol] 9.4 mg/dL 8.5-10.1 [facility] Work Phone: [phone] Serum or plasma creatinine m easurement (mass/volume)on 06-11-2021 Creatinine [Mass/Vol] 0.52 mg/dL 0.55-1.02 [facility] Work Phone: Comment on above: The validity of the calculated GFR & GFRAA in patients over 70 years has not been determined. Clinical correlation is essential. Serum or plasma urea nitroge n measurement (mass/volume)on 06-11-2021 Urea nitrogen [Mass/Vol] 14 mg/dL 7-18 [facility] Work Phone: [phone] Squamous epithelial cells de tection in urine sediment by light microscopyon 06-11-2021 Epithelial cells.squamous LM Ql (Urine sed) 0 SEEN /hpf 5-10 [facility] Work Phone: [phone] Thin prep Papanicolaou smear with manual screeningon 06-11-2021 Thin prep Papanicolaou smear with manual screening 8 5-15 [facility] Work Phone: Urine blood detectionon 05-24 0 RBC Ql (U) Negative Negative [facility] Work Phone: [phone] RBC Ql (U) 0 SEEN /hpf 0-5 [facility] Work Phone: [phone] Urine clarityon 06-11-2021 Clarity (U) Clear Clear [facility] Work Phone: [phone] Urine color determinationon 06-11-2021 Color (U) Yellow Yellow [facility] Work Phone: [phone] Urine glucose detectionon Glucose Ql (U) Normal mg/dl Normal [facility] Work Phone: Urine leukocyte esterase det ection by dipstickon 06-11-2021 Leukocyte esterase Test strip Ql (U) Negative Negative [facility] Work Phone: Urine pHon 06-11-2021 pH (U) 7.0 [pH] 5.0 - 8.0 [facility] Work Phone: Urine sediment bacteria coun t by microscopy (number/high power field)on 06-11-2021 Bacteria LM.HPF (Urine sed) [#/Area] 0 /[HPF] None Seen [facility] Work Phone: Urine specific gravity measu rementon 06-11-2021 Specific gravity (U) [Rel density] 1.010 1.002-1.030 [facility] Work Phone: Urobilinogen Auto test strip Ql (U)on 06-11-2021 Urobilinogen Ql (U) Normal mg/dl Normal [facility] Work Phone: Absolute lymphocyte counton 05-21-2021 Lymphocytes Auto (Unsp spec) [#/Vol] 1.29 10*3/uL 0.83-4.51 [facility] Work Phone: Basophil percentageon 2021 Basophils/100 WBC (Bld) 0.7 % 0-1 [facility] Work Phone: Chloride [Moles/Vol] 98 mmol/L 98-107 [facility] Work Phone: Eosinophils/100 WBC (Bld) 2.5 % 0-5 [facility] Work Phone: Glucose [Mass/Vol] 119 mg/dL 74-106 [facility] Work Phone: Comment on above: Fasting Glucose resu lt from 100 to 125 mg/dL suggests IMPAIRED HOMEOSTASIS per A.D.A. criteria. Neutrophils (Bld) [#/Vol] 6.4 10*3/uL 2.0-7.7 [facility] Work Phone: Neutrophils/100 WBC (Bld) 73.4 % 47-70 [facility] Work Phone: Potassium [Moles/Vol] 3.5 mmol/L 3.5-5.1 [facility] Work Phone: Sodium [Moles/Vol] 132 mmol/L 136-145 [facility] Work Phone: WBC (Bld) [#/Vol] 8.8 10*3/uL 4.4-11.0 [facility] Work [phone] Blood erythrocytes count (nu mber/volume)on 05-21-2021 RBC (Bld) [#/Vol] 3.66 10*6/uL 4.2-5.4 [facility]: Blood hemoglobin measurement (mass/volume)on 05-21-2021 Hemoglobin (Bld) [Mass/Vol] 11.5 g/dL 12.0-15.0 [facility] Work Phone: Blood lymphocytes/100 leukoc yteson 05-21-2021 Lymphocytes/100 WBC (Bld) 14.7 % 19-41 [facility] Work Phone: Blood monocytes/100 leukocyt eson 05-21-2021 Monocytes/100 WBC (Bld) 8.5 % 0-10 [facility] Work Phone: Blood platelet mean volumeon 05-21-2021 Platelet mean volume (Bld) [Entitic vol] 10.7 fL 6.2-12.0 [facility] Work Phone: Determination of erythrocyte mean corpuscular volume (MCV)on 05-21-2021 MCV (RBC) [Entitic vol] 94.0 fL 81-99 [facility] Work Phone: Hematocrit Auto (Bld) [Volum e fraction]on 05-21-2021 Hematocrit (Bld) [Volume fraction] 34.4 % 37-47 [facility] Work Phone: Laboratory - Chemistry and C hemistry - challengeon 05-21-2021 CO2 [Moles/Vol] 27.0 mmol/L 21.0-32.0 [facility] Work Phone: [phone] Urea nitrogen/Creatinine [Mass ratio] 31.0 mg/mg 10-20 [facility] Work Phone: [phone] Laboratory - Hematology and Cell countson 05-21-2021 Erythrocyte distribution width (RBC) [Entitic vol] 44.3 fL 35.1-43.9 [facility] Work Phone: [phone] Erythrocyte distribution width (RBC) [Ratio] 12.7 % 11.6-14.6 [facility] Work Phone: [phone] Immature granulocytes/100 WBC (Bld) 0.200 % 0.0-0.9 [facility] Work Phone: [phone] Comment on above: IG% - Immature Granu locytes (promyelocytes, myelocytes and metamyelocytes) > 1% indicates that a LEFT SHIFT is Present. MCH (RBC) [Entitic mass] 31.4 pg 27.0-32.0 [facility] Work Phone: [phone] Nucleated RBC/100 WBC (Bld) [Ratio] 0 % 0-5 [facility] Work Phone: [phone] MCHC Auto (RBC) [Mass/Vol]on 05-21-2021 MCHC (RBC) [Mass/Vol] 33.4 g/dL 32-36 [facility] Work Phone: [phone] Panel Informationon 05-21 Estimated Creatinine Clearance Calc 46.20 ml/min [facility] Work Phone: [phone] Estimated GFR (MDRD) Amer 174 mL/min >60 [facility] Work Phone: [phone] Comment on above: GFR Calc Estimated GFR (MDRD) Non-Af Amer 144 mL/min >60 [facility] Work Phone: [phone] Comment on above: Non- GFR Calc Ethyl Alcohol Level < 3.0 mg/dL [facility] Work Phone: [phone] Comment on above: The serum:whole bloo d ethanol ratio is approximately 1.14and varies slightly with hematocrit. Medical Alcohol reference interval and critical value innon-tolerant individuals; 50 - 100 Impairment 100 Intoxication 100 - 250 Severe Poisoning 250 - 400 Deep/possible fatal coma Platelets bldon 05-21-2021 Platelets (Bld) [#/Vol] 267 10*3/uL 150-450 [facility] Work Phone: Serum or plasma calcium rajni urement (mass/volume)on 05-21-2021 Calcium [Mass/Vol] 8.2 mg/dL 8.5-10.1 [facility] Work Phone: Serum or plasma creatinine m easurement (mass/volume)on 05-21-2021 Creatinine [Mass/Vol] 0.45 mg/dL 0.55-1.02 [facility] Work Phone: Comment on above: The validity of the calculated GFR & GFRAA in patients over 70 years has not been determined. Clinical correlation is essential. Serum or plasma urea nitroge n measurement (mass/volume)on 05-21-2021 Urea nitrogen [Mass/Vol] 14 mg/dL 7-18 [facility] Work Phone: Thin prep Papanicolaou smear with manual screeningon 05-21-2021 Thin prep Papanicolaou smear with manual screening 7 5-15 [facility] Work Phone: XR Humerus - left AP and Lat eralon 03-17-2021 IMPRESSION: Mildly comminuted fracture of the left humeral diaphysis. Overlying soft tissue swelling. Calculation Clerk[facility] Transcribe Date/Time: Mar 17 2021 2:43P Dictated by : ARISTEO HODGE MD This examination was interpreted and the report reviewed and electronically signed by: ARISTEO HODGE MD on Mar 17 2021 2:45PM [facility] * * *Final Report* * * DATE OF EXAM: Mar 17 2021 2:38PM WOX 5354 - XR HUMERUS 2V AP/LAT LT / PROCEDURE REASON: Injury of left upper arm, subsequent encounter * * * * Physician Interpretation * * * * LEFT HUMERUS RADIOGRAPH: HISTORY: Left femur pain, trauma TECHNIQUE: Left humerus radiograph; 2 views. COMPARISON: Radiograph of the contralateral humerus 06/23/2018 RESULT: Mildly comminuted mid diaphyseal fracture of the left humerus with mild displacement of bone fragments. Mild overlying soft tissue swelling. Visualized portions of the hematoma and visible joint spaces and alignment are maintained. Mild degenerative changes of the acromioclavicular joint. Visualized portions of the left chest wall demonstrates no pneumothorax or consolidation, no rib fractures in the single view. DIVISION OF RADIOLOGY Provider, [facility] - 03/17/2021 * * *Final Report* * * DATE OF EXAM: Mar 17 2021 2:38PM WOX 5354 - XR HUMERUS 2V AP/LAT LT / PROCEDURE REASON: Injury of left upper arm, subsequent encounter * * * * Physician Interpretation * * * * LEFT HUMERUS RADIOGRAPH: HISTORY: Left femur pain, trauma TECHNIQUE: Left humerus radiograph; 2 views. COMPARISON: Radiograph of the contralateral humerus 06/23/2018 RESULT: Mildly comminuted mid diaphyseal fracture of the left humerus with mild displacement of bone fragments. Mild overlying soft tissue swelling. Visualized portions of the hematoma and visible joint spaces and alignment are maintained. Mild degenerative changes of the acromioclavicular joint. Visualized portions of the left chest wall demonstrates no pneumothorax or consolidation, no rib fractures in the single view. IMPRESSION IMPRESSION: Mildly comminuted fracture of the left humeral diaphysis. Overlying soft tissue swelling. Calculation Clerk: [facility] Transcribe Date/Time: Mar 17 2021 2:43P Dictated by : ARISTEO HODGE MD This examination was interpreted and the report reviewed and electronically signed by: ARISTEO HODGE MD on Mar 17 2021 2:45PM [facility] Radiology Study observation (narrative) Lakisha mckenna [facility] XR Humerus - left AP and Lat eralOrdered By: [facility] Provider on 03-17-2021 [facility] Add On Lab Teston 04-17-2020 Sodium [Moles/Vol] Accepted [facility] [place] Comment on above: Specimen available & acceptable for analysis. Test Performed by [facility], [address] [place] [id number] [facility], [place] Sodium [Moles/Vol] [facility] [employer] Comment on above: Specimen available & acceptable for analysis. Test Performed by [facility], [place] [address] [place], [place] Add on test from HISon 04-17 Add on test from HIS Accepted Normal [facility] Comment on above: Result Comment: Spec imen available & acceptable for analysis. Performed By: #### A DDON ####[address] [place], [place] Add on test from HIS Accepted Normal [facility] Comment on above: Result Comment: Spec imen available & acceptable for analysis. Performed By: #### A DDON #### [facility] [address] [place], [place] Albuminon 04-17-2020 Albumin [Mass/Vol] 3.2 g/dL Low 3.5 - 5 g/dL [place], [place] Interpretation and review of laboratory results Abnormal [place], [place] Test Performed by [facility], [address] [place] [address] [place], [place] Albumin, Serumon 04-17-2020 Albumin [Mass/Vol] 3.2 g/dL Low 3.5-5.0 [facility] Comment on above: Performed By: #### B MP3M, TSH5, MG3, HEMDF, ALB3, B12, PHOS3 ####[address] [place], [place] Basic Metabolic Panelon 03-23 Anion gap [Moles/Vol] 6 Normal [facility] Comment on above: Performed By: #### B MP3M, TSH5, MG3, HEMDF, ALB3, B12, PHOS3 ####[address] [place], [place] Calcium [Mass/Vol] 6.8 mg/dL Low 8.4-10.4 [facility] [facility] Comment on above: Performed By: #### B MP3M, TSH5, MG3, HEMDF, ALB3, B12, PHOS3 ####[address] [place], [place] CO2 [Moles/Vol] 29 mmol/L Normal 22-30 [facility] Comment on above: Performed By: #### B MP3M, TSH5, MG3, HEMDF, ALB3, B12, PHOS3 ####[address] [place], [place] Glucose [Mass/Vol] 103 mg/dL High 70-100 [facility] Comment on above: Performed By: #### B MP3M, TSH5, MG3, HEMDF, ALB3, B12, PHOS3 ####[facility] [place] [facility] [place], [place] Urea nitrogen [Mass/Vol] 13 mg/dL Normal 7-20 [facility] Comment on above: Performed By: #### B MP3M, TSH5, MG3, HEMDF, ALB3, B12, PHOS3 ####[address] [place], [place] Creatinine [Mass/Vol] 0.56 mg/dL Normal 0.52-1.25 [facility] Comment on above: Performed By: #### B MP3M, TSH5, MG3, HEMDF, ALB3, B12, PHOS3 ####[address] [place], [place] GFR/1.73 sq M predicted among blacks MDRD (S/P/Bld) [Vol rate/Area] mL/min/{1.73_m2} Normal >60 [facility] Comment on above: Performed By: #### B MP3M, TSH5, MG3, HEMDF, ALB3, B12, PHOS3 ####[address] [place], [place] GFR/1.73 sq M predicted among non-blacks MDRD (S/P/Bld) [Vol rate/Area] mL/min/{1.73_m2} Normal >60 [facility] Comment on above: Result Comment: KDIG O guidelines provide the following GFR categories: Stage GFR(ml/min/1.73 m2) Terms G1 >=90 Normal or high G2 60-89 Mildly decreased* G3a 45-59 Mildly to moderately decreased G3b 30-44 Moderately to severely decreased G4 15-29 Severely decreased G5 <15 Kidney failure *Relative to young adult level. In the absence of evidence of kidney damage, neither GFR category G1 nor G2 fulfill the criteria for CKD. The CKD-EPI equation is validated in individuals 18 years of age and older. Currently the best equation for estimating glomerular filtration rate (GFR) from serum creatinine in children is the Bedside Marroquin equation. It is less accurate in patients with extremes of muscle mass, restriction of dietary protein, ingestion of creatine, extra-renal metabolism of creatinine, or treatment with medications that affect renal tubular creatinine secretion. Performed By: #### B MP3M, TSH5, MG3, HEMDF, ALB3, B12, PHOS3 ####[address] [place], [place] Chloride [Moles/Vol] 100 mmol/L Normal 98-107 [facility] Comment on above: Performed By: #### B MP3M, TSH5, MG3, HEMDF, ALB3, B12, PHOS3 ####[address] [place], [place] Potassium [Moles/Vol] 3.3 mmol/L Low 3.5-5.1 [facility] Comment on above: Performed By: #### B MP3M, TSH5, MG3, HEMDF, ALB3, B12, PHOS3 ####[address] [place], [place] Sodium [Moles/Vol] 135 mmol/L Normal 135-145 [facility] Comment on above: Performed By: #### B MP3M, TSH5, MG3, HEMDF, ALB3, B12, PHOS3 ####[address] [place], [place] Basic Metabolic Panel w/ Ref jason to MGon 04-17-2020 Anion gap [Moles/Vol] 6 mmol/L [facility], [place] Calcium [Mass/Vol] 6.8 mg/dL Low 8.4 - 10. 4 mg/dL [facility], [place] Chloride [Moles/Vol] 100 mmol/L 98 - 10 7 mmol/L [facility], [place] CO2 [Moles/Vol] 29 mmol/L 22 - 30 mmol/L [facility], [place] Creatinine [Mass/Vol] 0.56 mg/dL 0.52 - 1.25 mg/dL [place], [place] EGFR IF NonAfrican Icelandic >90.0 >60 mL/min [place], [place] Comment on above: KDIGO guidelines pro vide the following GFR categories: Stage GFR(ml/min/1.73 m2) Terms G1 >=90 Normal or high G2 60-89 Mildly decreased* G3a 45-59 Mildly to moderately decreased G3b 30-44 Moderately to severely decreased G4 15-29 Severely decreased G5 <15 Kidney failure *Relative to young adult level. In the absence of evidence of kidney damage, neither GFR category G1 nor G2 fulfill the criteria for CKD. The CKD-EPI equation is validated in individuals 18 years of age and older. Currently the best equation for estimating glomerular filtration rate (GFR) from serum creatinine in children is the Bedside Marroquin equation. It is less accurate in patients with extremes of muscle mass, restriction of dietary protein, ingestion of creatine, extra-renal metabolism of creatinine, or treatment with medications that affect renal tubular creatinine secretion. GFR/1.73 sq M predicted among blacks MDRD (S/P/Bld) [Vol rate/Area] mL/min/{1.73_m2} >60 mL/min [place] Glucose [Mass/Vol] 103 mg/dL High 70 - 100 mg/dL [place] Interpretation and review of laboratory results Abnormal [place] Potassium [Moles/Vol] 3.3 mmol/L Low 3.5 - 5.1 mmol/L [place] Sodium [Moles/Vol] 135 mmol/L 135 - 145 mmol/L [place] Urea nitrogen [Mass/Vol] 13 mg/dL 7 - 20 mg/dL [place] CBC auto differentialon 03-23 Absolute Baso # 0.1 10*3/uL 0 - 0.2 10*3/uL [place] Absolute Neut # 8.1 10*3/uL High 1.8 - 7 10*3/uL [place] Basophils/100 WBC (Bld) 0.6 % 0 - 2 % M [place], [place] Eosinophils (Bld) [#/Vol] 0.1 10*3/uL 0 - 0.5 10*3/uL [place] Eosinophils/100 WBC (Bld) 1.1 % 1 - 6 % [place] Erythrocyte distribution width (RBC) [Ratio] 14.9 % High 11.5 - 14.5 % [place] Granulocytes/100 WBC (Bld) 71.9 % 40 - 80 % [place] Hematocrit (Bld) [Volume fraction] 31.7 % Low 35 - 47 % [place] Hemoglobin (Bld) [Mass/Vol] 10.6 g/dL Low 11.7 - 16 g/dL [place] Interpretation and review of laboratory results Abnormal [place] Lymphocytes (Bld) [#/Vol] 1.9 10*3/uL 1 - 4.3 10*3/uL [place] Lymphocytes/100 WBC (Bld) 16.9 % Low 20 - 40 % [place] MCH (RBC) [Entitic mass] 33.2 pg 26 - 34 pg [place] MCHC (RBC) [Mass/Vol] 33.3 % 32 - 36 % [place], [place] MCV (RBC) [Entitic vol] 99.7 fL High 79 - 98 fL [place], [place] Monocytes (Bld) [#/Vol] 1.1 10*3/uL High 0 - 0.8 10*3/uL [place] Monocytes/100 WBC (Bld) 9.5 % 2 - 10 % [place] Platelet mean volume (Bld) [Entitic vol] 8.7 fL 7.4 - 10.4 fL [place] Platelets (Bld) [#/Vol] 232 10*3/uL 140 - 440 10*3/uL [place] RBC (Bld) [#/Vol] 3.18 10*6/uL Low 3.8 - 5.2 10*6/uL [place] WBC (Bld) [#/Vol] 11.2 10*3/uL High 3.6 - 10.7 10*3/uL [place] Test Performed by [facility], [address] [place] [address] [place], [place] CT Head or Brain w/o Contras ton 04-17-2020 CT Head or Brain w/o Contrast Patient Name: AIDEN FIELDS Computed Tomography ACCESSION EXAM DATE/TIME PROCEDURE ORDERING PROVIDER [id number] 04/17/2020 06:[address] Head or Brain w/o MD LEY ANDREW Contrast CPT code 86674 Reason For Exam (CT Head or Brain w/o Contrast) right subdural - interval scan Report Indication: Subdural hematoma. Comparison recent outside CT 04/16/2020 FINDINGS: Unenhanced brain performed in multiple projections. There is abnormal increased attenuation in the subdural space bilaterally, visible in retrospect including right temporoparietal region, left frontal region. Thickness on the order of 3 to 4 mm. Also acute subdural acute blood density layering along the left tentorium visible in retrospect possibly mildly more prominent. Quality of the current exam appears better making comparison more difficult. No parenchymal hemorrhage. No intraventricular hemorrhage. No midline shift. No acute edema visible. Atherosclerotic calcifications. Orbits negative. No air-fluid levels in the sinuses. IMPRESSION: There is persistent evidence of acute intracranial bleeding, bilateral, subdural location possibly increased along the tentorium. No midline shift visible or definite evidence of acute infarct. MRI more specific and sensitive. Consider follow-up. Report Dictated on Final Dictated: 04/17/2020 9:04 am Dictating Physician: MD GRIMES JOHN Signed Date and Time: 04/17/2020 9:10 am Signed by: MD GRIMES JOHN Transcribed Date and Time: 04/17/2020 9:04 Normal [facility] CT head without contraston 1 06-18-2019 Greg, [facility] Incoming Radiology Results From [facility] - 04/17/2020 9:11 AM EST Patient Name: AIDEN FIELDS Computed Tomography ACCESSION EXAM DATE/TIME PROCEDURE ORDERING PROVIDER [id number] 04/17/2020 06:[address] Head or Brain w/o MD LEY ANDREW Contrast CPT code 93998 Reason For Exam (CT Head or Brain w/o Contrast) right subdural - interval scan Report Indication: Subdural hematoma. Comparison recent outside CT 04/16/2020 FINDINGS: Unenhanced brain performed in multiple projections. There is abnormal increased attenuation in the subdural space bilaterally, visible in retrospect including right temporoparietal region, left frontal region. Thickness on the order of 3 to 4 mm. Also acute subdural acute blood density layering along the left tentorium visible in retrospect possibly mildly more prominent. Quality of the current exam appears better making comparison more difficult. No parenchymal hemorrhage. No intraventricular hemorrhage. No midline shift. No acute edema visible. Atherosclerotic calcifications. Orbits negative. No air-fluid levels in the sinuses. IMPRESSION: There is persistent evidence of acute intracranial bleeding, bilateral, subdural location possibly increased along the tentorium. No midline shift visible or definite evidence of acute infarct. MRI more specific and sensitive. Consider follow-up. Report Dictated on --- Final --- Dictated: 04/17/2020 9:04 am Dictating Physician: MD GRIMES JOHN Signed Date and Time: 04/17/2020 9:10 am Signed by: MD GRIMES JOHN Transcribed Date and Time: 04/17/2020 9:04 [place], [place] Patient Name: AIDEN FIELDS Computed Tomography ACCESSION EXAM DATE/TIME PROCEDURE ORDERING PROVIDER [id number] 04/17/2020 06:[address] Head or Brain w/o MD LEY ANDREW Contrast CPT code 57239 Reason For Exam (CT Head or Brain w/o Contrast) right subdural - interval scan Report Indication: Subdural hematoma. Comparison recent outside CT 04/16/2020 FINDINGS: Unenhanced brain performed in multiple projections. There is abnormal increased attenuation in the subdural space bilaterally, visible in retrospect including right temporoparietal region, left frontal region. Thickness on the order of 3 to 4 mm. Also acute subdural acute blood density layering along the left tentorium visible in retrospect possibly mildly more prominent. Quality of the current exam appears better making comparison more difficult. No parenchymal hemorrhage. No intraventricular hemorrhage. No midline shift. No acute edema visible. Atherosclerotic calcifications. Orbits negative. No air-fluid levels in the sinuses. IMPRESSION: There is persistent evidence of acute intracranial bleeding, bilateral, subdural location possibly increased along the tentorium. No midline shift visible or definite evidence of acute infarct. MRI more specific and sensitive. Consider follow-up. Report Dictated on --- Final --- Dictated: 04/17/2020 9:04 am Dictating Physician: MD GRIMES JOHN Signed Date and Time: 04/17/2020 9:10 am Signed by: MD GRIMES JOHN Transcribed Date and Time: 04/17/2020 9:04 [place], [place] Hemogram w/ Autodiffon 04-17 Abs Baso Cnt 0.1 10*3/uL Normal 0.0-0.2 [facility] Comment on above: Performed By: #### B MP3M, TSH5, MG3, HEMDF, ALB3, B12, PHOS3 ####[address] [place], [place] Abs Neutrophile Cnt 8.1 10*3/uL High 1.8-7.0 [facility] Comment on above: Performed By: #### B MP3M, TSH5, MG3, HEMDF, ALB3, B12, PHOS3 ####[address] [place], [place] Basophils/100 WBC (Bld) 0.6 % Normal 0.0-2.0 [facility] Comment on above: Performed By: #### B MP3M, TSH5, MG3, HEMDF, ALB3, B12, PHOS3 ####[address] [place], [place] Eosinophils (Bld) [#/Vol] 0.1 10*3/uL Normal 0.0-0.5 [facility] Comment on above: Performed By: #### B MP3M, TSH5, MG3, HEMDF, ALB3, B12, PHOS3 ####[address] [place], [place] Eosinophils/100 WBC (Bld) 1.1 % Normal 1.0-6.0 [facility] Comment on above: Performed By: #### B MP3M, TSH5, MG3, HEMDF, ALB3, B12, PHOS3 ####[address] [place], [place] Erythrocyte distribution width (RBC) [Ratio] 14.9 % High 11.5-14.5 [facility] Comment on above: Performed By: #### B MP3M, TSH5, MG3, HEMDF, ALB3, B12, PHOS3 ####[address] Granulocytes/100 WBC (Bld) 71.9 % Normal 40.0-80.0 [facility] Comment on above: Performed By: #### B MP3M, TSH5, MG3, HEMDF, ALB3, B12, PHOS3 ####[address] Hematocrit (Bld) [Volume fraction] 31.7 % Low 35.0-47.0 [facility] Comment on above: Performed By: #### B MP3M, TSH5, MG3, HEMDF, ALB3, B12, PHOS3 ####[address] Hemoglobin (Bld) [Mass/Vol] 10.6 g/dL Low 11.7-16.0 [facility] Comment on above: Performed By: #### B MP3M, TSH5, MG3, HEMDF, ALB3, B12, PHOS3 ####[address] Lymphocytes (Bld) [#/Vol] 1.9 10*3/uL Normal 1.0-4.3 [facility] Comment on above: Performed By: #### B MP3M, TSH5, MG3, HEMDF, ALB3, B12, PHOS3 ####[address] Lymphocytes/100 WBC (Bld) 16.9 % Low 20.0-40.0 [facility] Comment on above: Performed By: #### B MP3M, TSH5, MG3, HEMDF, ALB3, B12, PHOS3 ####[address] [place], [place] MCH (RBC) [Entitic mass] 33.2 pg Normal 26.0-34.0 [facility] Comment on above: Performed By: #### B MP3M, TSH5, MG3, HEMDF, ALB3, B12, PHOS3 ####[address] [place], [place] MCHC (RBC) [Mass/Vol] 33.3 % Normal 32.0-36.0 [facility] Comment on above: Performed By: #### B MP3M, TSH5, MG3, HEMDF, ALB3, B12, PHOS3 ####[address] [place], [place] MCV (RBC) [Entitic vol] 99.7 fL High 79.0-98.0 [facility] Comment on above: Performed By: #### B MP3M, TSH5, MG3, HEMDF, ALB3, B12, PHOS3 ####[address] Monocytes (Bld) [#/Vol] 1.1 10*3/uL High 0.0-0.8 [facility] Comment on above: Performed By: #### B MP3M, TSH5, MG3, HEMDF, ALB3, B12, PHOS3 ####[address] Monocytes/100 WBC (Bld) 9.5 % Normal 2.0-10.0 [facility] Comment on above: Performed By: #### B MP3M, TSH5, MG3, HEMDF, ALB3, B12, PHOS3 ####[address] Platelet mean volume (Bld) [Entitic vol] 8.7 fL Normal 7.4-10.4 [facility] Comment on above: Performed By: #### B MP3M, TSH5, MG3, HEMDF, ALB3, B12, PHOS3 ####[facility] [place], [place] Platelets (Bld) [#/Vol] 232 10*3/uL Normal 140-440 [facility] Comment on above: Performed By: #### B MP3M, TSH5, MG3, HEMDF, ALB3, B12, PHOS3 ####[facility] [place], [place] RBC (Bld) [#/Vol] 3.18 10*6/uL Low 3.80-5.20 [facility] Comment on above: Performed By: #### B MP3M, TSH5, MG3, HEMDF, ALB3, B12, PHOS3 ####[address] [place], [place] WBC (Bld) [#/Vol] 11.2 10*3/uL High 3.6-10.7 [facility] Comment on above: Performed By: #### B MP3M, TSH5, MG3, HEMDF, ALB3, B12, PHOS3 ####[address] [place], [place] Lactic Acidon 04-17-2020 Lactate [Moles/Vol] 1.8 mmol/L Normal 0.7-2.0 [facility] Comment on above: Performed By: #### L ACT3 #### [facility] [address] [place], [place] Lactic Acid, Plasmaon 2019 Lactate [Moles/Vol] 1.8 mmol/L 0.7 - 2 mmol/L [place], [place] Test Performed by [facility], [address] [place] [address] [place], [place] Magnesiumon 04-17-2020 Magnesium [Mass/Vol] 1.4 mg/dL Low 1.6-2.3 [facility] Comment on above: Performed By: #### B MP3M, TSH5, MG3, HEMDF, ALB3, B12, PHOS3 ####[address] [place], [place] Interpretation and review of laboratory results Abnormal [place], [place] Magnesium [Mass/Vol] 1.4 mg/dL Low 1.6 - 2 .3 mg/dL [place] Test Performed by [facility], [place] [address] [place], [place] Otheron 04-17-2020 Test Performed by [facility], [facility] [place] [facility] [place] [address] [place], [place] Phosphoruson 04-17-2020 Phosphate [Mass/Vol] 3.4 mg/dL Normal 2.5-4.5 [facility] Comment on above: Performed By: #### B MP3M, TSH5, MG3, HEMDF, ALB3, B12, PHOS3 ####[facility] [employer] [id number] [place] [address] Phosphate [Mass/Vol] 3.4 mg/dL 2.5 - 4 .5 mg/dL [place], [place] TSH without Reflexon 020 Interpretation and review of laboratory results Abnormal [place], [place] TSH Qn 18.063 u[IU]/mL High 0.465 - 4.68 u[IU]/mL [place] Test Performed by [facility], [place] [address] [place], [place] Thyroid Stim. Hormoneon 03-23 Thyroid Stim. Hormone 18.063 u[IU]/mL High 0.465-4.6 80 [facility] Comment on above: Performed By: #### B MP3M, TSH5, MG3, HEMDF, ALB3, B12, PHOS3 ####[facility] [employer] [address] [place] [address] Vitamin B12on 04-17-2020 Cobalamin (Vitamin B12) [Mass/Vol] 345 pg/mL Normal 239-931 [facility] Comment on above: Performed By: #### B MP3M, TSH5, MG3, HEMDF, ALB3, B12, PHOS3 ####[facility] [employer] [id number] [place] [address] Cobalamin (Vitamin B12) [Mass/Vol] 345 pg/mL 239 - 931 pg/mL [place], [place] Test Performed by [facility], [address] [place] [address] [place], [place] Basic Metabolic Panelon 12-2 Calcium [Mass/Vol] 7.9 mg/dL Low 8.4-10.4 [facility] Comment on above: Performed By: #### E TOH4, BMP3M, LACT3, HEMDF #### [address] [address] [place], [place] Glucose [Mass/Vol] 116 mg/dL High 70-100 [facility] Comment on above: Performed By: #### E TOH4, BMP3M, LACT3, HEMDF #### [address] [place], [place] Anion gap [Moles/Vol] 7 Normal [facility] Comment on above: Performed By: #### E TOH4, BMP3M, LACT3, HEMDF #### [address] [place], [place] CO2 [Moles/Vol] 29 mmol/L Normal 22-30 [facility] Comment on above: Performed By: #### E TOH4, BMP3M, LACT3, HEMDF #### [address] [place], [place] Creatinine [Mass/Vol] 0.48 mg/dL Low 0.52-1.25 [facility] Comment on above: Performed By: #### E TOH4, BMP3M, LACT3, HEMDF #### [address] [place], [place] GFR/1.73 sq M predicted among blacks MDRD (S/P/Bld) [Vol rate/Area] mL/min/{1.73_m2} Normal >60 [facility] Comment on above: Performed By: #### E TOH4, BMP3M, LACT3, HEMDF #### [address] [place], [place] GFR/1.73 sq M predicted among non-blacks MDRD (S/P/Bld) [Vol rate/Area] mL/min/{1.73_m2} Normal >60 [facility] Comment on above: Result Comment: KDIG O guidelines provide the following GFR categories: Stage GFR(ml/min/1.73 m2) Terms G1 >=90 Normal or high G2 60-89 Mildly decreased* G3a 45-59 Mildly to moderately decreased G3b 30-44 Moderately to severely decreased G4 15-29 Severely decreased G5 <15 Kidney failure *Relative to young adult level. In the absence of evidence of kidney damage, neither GFR category G1 nor G2 fulfill the criteria for CKD. The CKD-EPI equation is validated in individuals 18 years of age and older. Currently the best equation for estimating glomerular filtration rate (GFR) from serum creatinine in children is the Bedside Marroquin equation. It is less accurate in patients with extremes of muscle mass, restriction of dietary protein, ingestion of creatine, extra-renal metabolism of creatinine, or treatment with medications that affect renal tubular creatinine secretion. Performed By: #### E TOH4, BMP3M, LACT3, HEMDF #### [address] [place], [place] Urea nitrogen [Mass/Vol] 13 mg/dL Normal 7-20 [facility] Comment on above: Performed By: #### E TOH4, BMP3M, LACT3, HEMDF #### [address] Chloride [Moles/Vol] 99 mmol/L Normal 98-107 [facility] Comment on above: Performed By: #### E TOH4, BMP3M, LACT3, HEMDF #### [address] Potassium [Moles/Vol] 3.6 mmol/L Normal 3.5-5.1 [facility] Comment on above: Performed By: #### E TOH4, BMP3M, LACT3, HEMDF #### [address] Sodium [Moles/Vol] 136 mmol/L Normal 135-145 [facility] Comment on above: Performed By: #### E TOH4, BMP3M, LACT3, HEMDF #### [address] [address] Basic Metabolic Panel w/ Ref jason to MG 04-16-2020 Anion gap [Moles/Vol] 7 mmol/L [place], [place] Calcium [Mass/Vol] 7.9 mg/dL Low 8.4 - 10. 4 mg/dL [place], [place] Chloride [Moles/Vol] 99 mmol/L 98 - 10 7 mmol/L [place] CO2 [Moles/Vol] 29 mmol/L 22 - 30 mmol/L [place] Creatinine [Mass/Vol] 0.48 mg/dL Low 0.52 - 1.25 mg/dL [place] EGFR IF NonAfrican Icelandic >90.0 >60 mL/min [place] Comment on above: KDIGO guidelines pro vide the following GFR categories: Stage GFR(ml/min/1.73 m2) Terms G1 >=90 Normal or high G2 60-89 Mildly decreased* G3a 45-59 Mildly to moderately decreased G3b 30-44 Moderately to severely decreased G4 15-29 Severely decreased G5 <15 Kidney failure *Relative to young adult level. In the absence of evidence of kidney damage, neither GFR category G1 nor G2 fulfill the criteria for CKD. The CKD-EPI equation is validated in individuals 18 years of age and older. Currently the best equation for estimating glomerular filtration rate (GFR) from serum creatinine in children is the Bedside Marroquin equation. It is less accurate in patients with extremes of muscle mass, restriction of dietary protein, ingestion of creatine, extra-renal metabolism of creatinine, or treatment with medications that affect renal tubular creatinine secretion. GFR/1.73 sq M predicted among blacks MDRD (S/P/Bld) [Vol rate/Area] mL/min/{1.73_m2} >60 mL/min [place], [place] Glucose [Mass/Vol] 116 mg/dL High 70 - 100 mg/dL [place] Interpretation and review of laboratory results Abnormal [place] Potassium [Moles/Vol] 3.6 mmol/L 3.5 - 5.1 mmol/L [place] Sodium [Moles/Vol] 136 mmol/L 135 - 145 mmol/L [place] Urea nitrogen [Mass/Vol] 13 mg/dL 7 - 20 mg/dL [place] CBC auto differentialon 12-2 Absolute Baso # 0.1 10*3/uL 0 - 0.2 10*3/uL [place] Absolute Neut # 10.3 10*3/uL High 1.8 - 7 10*3/uL [place] Basophils/100 WBC (Bld) 0.4 % 0 - 2 % [place] Eosinophils (Bld) [#/Vol] 0.0 10*3/uL 0 - 0.5 10*3/uL [place] Eosinophils/100 WBC (Bld) 0.4 % Low 1 - 6 % [place] Erythrocyte distribution width (RBC) [Ratio] 14.6 % High 11.5 - 14.5 % [place] Granulocytes/100 WBC (Bld) 82.2 % High 40 - 80 % [place] Hematocrit (Bld) [Volume fraction] 36.4 % 35 - 47 % [place] Hemoglobin (Bld) [Mass/Vol] 12.1 g/dL 11.7 - 16 g/dL [place] Interpretation and review of laboratory results Abnormal [place] Lymphocytes (Bld) [#/Vol] 1.1 10*3/uL 1 - 4.3 10*3/uL [place] Lymphocytes/100 WBC (Bld) 9.1 % Low 20 - 40 % [place] MCH (RBC) [Entitic mass] 33.0 pg 26 - 34 pg [place] MCHC (RBC) [Mass/Vol] 33.2 % 32 - 36 % [place] MCV (RBC) [Entitic vol] 99.2 fL High 79 - 98 fL [place], [place] Monocytes (Bld) [#/Vol] 1.0 10*3/uL High 0 - 0.8 10*3/uL [place], [place] Monocytes/100 WBC (Bld) 7.9 % 2 - 10 % [place] Platelet mean volume (Bld) [Entitic vol] 8.1 fL 7.4 - 10.4 fL [place], [place] Platelets (Bld) [#/Vol] 283 10*3/uL 140 - 440 10*3/uL [place] RBC (Bld) [#/Vol] 3.67 10*6/uL Low 3.8 - 5.2 10*6/uL [place] WBC (Bld) [#/Vol] 12.5 10*3/uL High 3.6 - 10.7 10*3/uL [place] Test Performed by [facility], [place] [address] [place], [place] Drug screen multi urineon Amphetamines, urine Negative [place], [place] Barbiturates, Ur Negative [place] Benzodiazepine Ur Qual Negative [place], [place] Cocaine Metabolites, Ur Negative [place], [place] Methadone, Urine Negative [place] Opiates, Urine Positive [place], [place] Oxycodone Screen, Ur Negative [place], [place] PCP, Urine Negative [place], [place] Comment on above: The expected value f or all of the drugs listed above is Negative. The following drugs or drug groups have been screened for by Immunoassay at the following thresholds: Amphetamine class (1000 ng/mL), Barbiturates (200 ng/mL), Benzodiazepines (200 ng/mL), Cocaine (300 ng/mL), Methadone (300 ng/mL), Opiates (300 ng/mL), Oxycodone (100 ng/mL), and PCP (25 ng/mL). NOTE: These results are for medical treatment only. Analysis performed using non-forensic procedures. POSITIVE results are NOT confirmed by a more specific alternative method unless requested. If confirmation is needed, request confirmation under separate order. Test Performed by [facility], [place] [address] [place], [place] Drugs of Abuseon 04-16-2020 Opiates, Ur Positive Normal [facility] Comment on above: Performed By: #### D RGA4 #### [facility] [address] [place] [address] Phencyclidine (PCP), Ur Negative Normal [facility] Comment on above: Result Comment: The expected value for all of the drugs listed above is Negative. The following drugs or drug groups have been screened for by Immunoassay at the following thresholds: Amphetamine class (1000 ng/mL), Barbiturates (200 ng/mL), Benzodiazepines (200 ng/mL), Cocaine (300 ng/mL), Methadone (300 ng/mL), Opiates (300 ng/mL), Oxycodone (100 ng/mL), and PCP (25 ng/mL). NOTE: These results are for medical treatment only. Analysis performed using non-forensic procedures. POSITIVE results are NOT confirmed by a more specific alternative method unless requested. If confirmation is needed, request confirmation under separate order. Performed By: #### D RGA4 #### [facility] [address] [place], [place] Methadone, Ur Negative Normal [facility] Comment on above: Performed By: #### D RGA4 #### [address] [place] [address] Benzodiazepines, Ur Negative Normal [facility] Comment on above: Performed By: #### D RGA4 #### [address] [facility], [place] Cocaine, Ur Negative Normal [facility] Comment on above: Performed By: #### D RGA4 #### [facility] [address] [place] [facility] [address] Barbiturates, Ur Negative Normal [facility] Comment on above: Performed By: #### D RGA4 #### [facility] [address] [place] [facility] [address] Amphetamines, Ur Negative Normal [facility] Comment on above: Performed By: #### D RGA4 #### [facility] [address] [place] [address] Oxycodone/Oxymorphine,U r Negative Normal [facility] Comment on above: Performed By: #### D RGA4 #### [facility] [address] [place] [address] Ethanolon 04-16-2020 Ethanol Lvl <0.010 0 - 0.01 g/dL [place], [place] Comment on above: NOTE: This result is for medical treatment only. Analysis performed using non-forensic procedures. Ethanol Serum/Plasmaon 04-16 Ethanol-Serum/Plasma < 0.010 Normal 0.000-0.010 [facility] Comment on above: Result Comment: NOTE : This result is for medical treatment only. Analysis performed using non-forensic procedures. Performed By: #### E TOH4, BMP3M, LACT3, HEMDF #### [address] [place], [place] Hemogram w/ Autodiffon 04-16 Abs Baso Cnt 0.1 10*3/uL Normal 0.0-0.2 [facility] Comment on above: Performed By: #### E TOH4, BMP3M, LACT3, HEMDF #### [address] [place], [place] Abs Neutrophile Cnt 10.3 10*3/uL High 1.8-7.0 [facility] Comment on above: Performed By: #### E TOH4, BMP3M, LACT3, HEMDF #### [address] Basophils/100 WBC (Bld) 0.4 % Normal 0.0-2.0 [facility] Comment on above: Performed By: #### E TOH4, BMP3M, LACT3, HEMDF #### [address] Eosinophils (Bld) [#/Vol] 0.0 10*3/uL Normal 0.0-0.5 [facility] Comment on above: Performed By: #### E TOH4, BMP3M, LACT3, HEMDF #### [address] [place] Eosinophils/100 WBC (Bld) 0.4 % Low 1.0-6.0 [facility] Comment on above: Performed By: #### E TOH4, BMP3M, LACT3, HEMDF #### [address] Erythrocyte distribution width (RBC) [Ratio] 14.6 % High 11.5-14.5 [facility] Comment on above: Performed By: #### E TOH4, BMP3M, LACT3, HEMDF #### [address] Granulocytes/100 WBC (Bld) 82.2 % High 40.0-80.0 [facility] Comment on above: Performed By: #### E TOH4, BMP3M, LACT3, HEMDF #### [address] [place] Hematocrit (Bld) [Volume fraction] 36.4 % Normal 35.0-47.0 [facility] Comment on above: Performed By: #### E TOH4, BMP3M, LACT3, HEMDF #### [address] Hemoglobin (Bld) [Mass/Vol] 12.1 g/dL Normal 11.7-16.0 [facility] Comment on above: Performed By: #### E TOH4, BMP3M, LACT3, HEMDF #### [address] Lymphocytes (Bld) [#/Vol] 1.1 10*3/uL Normal 1.0-4.3 [facility] Comment on above: Performed By: #### E TOH4, BMP3M, LACT3, HEMDF #### [address] Lymphocytes/100 WBC (Bld) 9.1 % Low 20.0-40.0 [facility] Comment on above: Performed By: #### E TOH4, BMP3M, LACT3, HEMDF #### [address] [place] MCH (RBC) [Entitic mass] 33.0 pg Normal 26.0-34.0 [facility] Comment on above: Performed By: #### E TOH4, BMP3M, LACT3, HEMDF #### [address] MCHC (RBC) [Mass/Vol] 33.2 % Normal 32.0-36.0 [facility] Comment on above: Performed By: #### E TOH4, BMP3M, LACT3, HEMDF #### [address] MCV (RBC) [Entitic vol] 99.2 fL High 79.0-98.0 [facility] Comment on above: Performed By: #### E TOH4, BMP3M, LACT3, HEMDF #### [address] Monocytes (Bld) [#/Vol] 1.0 10*3/uL High 0.0-0.8 [facility] Comment on above: Performed By: #### E TOH4, BMP3M, LACT3, HEMDF #### [address] Monocytes/100 WBC (Bld) 7.9 % Normal 2.0-10.0 [facility] Comment on above: Performed By: #### E TOH4, BMP3M, LACT3, HEMDF #### [address] Platelet mean volume (Bld) [Entitic vol] 8.1 fL Normal 7.4-10.4 [facility] Comment on above: Performed By: #### E TOH4, BMP3M, LACT3, HEMDF #### [address] Platelets (Bld) [#/Vol] 283 10*3/uL Normal 140-440 [facility] Comment on above: Performed By: #### E TOH4, BMP3M, LACT3, HEMDF #### [address] RBC (Bld) [#/Vol] 3.67 10*6/uL Low 3.80-5.20 [facility] Comment on above: Performed By: #### E TOH4, BMP3M, LACT3, HEMDF #### [address], [place] WBC (Bld) [#/Vol] 12.5 10*3/uL High 3.6-10.7 [facility] Comment on above: Performed By: #### E TOH4, BMP3M, LACT3, HEMDF #### [facility] [address] [place] [address] Lactic Acidon 04-16-2020 Lactate [Moles/Vol] 2.7 mmol/L Critically high 0.7-2.0 [facility] Comment on above: Performed By: #### L ACT3 #### [address] [place] Lactate [Moles/Vol] 3.0 mmol/L Critically high 0.7-2.0 [facility] Comment on above: Performed By: #### E TOH4, BMP3M, LACT3, HEMDF #### [address] [address] [place], [place] Lactic Acid, Plasmaon 2019 Interpretation and review of laboratory results Abnormal [place] Lactate [Moles/Vol] 2.7 mmol/L Critically high 0.7 - 2 mmol/L [place] Test Performed by [facility], [address] [place] [id number] [place] [address] Interpretation and review of laboratory results Abnormal [place] Lactate [Moles/Vol] 3 mmol/L Critically high 0.7 - 2 mmol/L [place] Test Performed by [id number] [place] [address], [place] Otheron 04-16-2020 Test Performed by [id number] [place] [address] .GFRon 09-01-2019 GFR Non- >60 Normal [facility] ([place]) Comment on above: Result Comment: GFR Population mean for , Non- Americans Ages 20-29 = 116 mL/min/1.73 sq.m. Ages 30-39 = 107 mL/min/1.73 sq.m. Ages 40-49 = 99 mL/min/1.73 sq.m. Ages 50-59 = 93 mL/min/1.73 sq.m. Ages 60-69 = 85 mL/min/1.73 sq.m. Ages 70+ = 75 mL/min/1.73 sq.m. Chronic Kidney Disease: Less than 60 mL/min/1.73 square meters End Stage Renal Disease: Less than 15 mL/min/1.73 square meters Performed By: #### C BC, BMP, GFR, DIFF, MORPH ####[address] [address] GFR >60 Normal [facility] ([place]) Comment on above: Result Comment: GFR Population mean for , Non- Americans Ages 20-29 = 116 mL/min/1.73 sq.m. Ages 30-39 = 107 mL/min/1.73 sq.m. Ages 40-49 = 99 mL/min/1.73 sq.m. Ages 50-59 = 93 mL/min/1.73 sq.m. Ages 60-69 = 85 mL/min/1.73 sq.m. Ages 70+ = 75 mL/min/1.73 sq.m. Chronic Kidney Disease: Less than 60 mL/min/1.73 square meters End Stage Renal Disease: Less than 15 mL/min/1.73 square meters Performed By: #### C BC, BMP, GFR, DIFF, MORPH ####[address] [address] .Manual Diffon 09-01-2019 Bands 1.0 % Normal 0.0-5.0 [facility] ([place]) Comment on above: Performed By: #### C BC, BMP, GFR, DIFF, MORPH ####[address] [address] [address] Basophil %, Manual 1.0 % Normal 0.0-2.5 [facility] ([place]) Comment on above: Performed By: #### C BC, BMP, GFR, DIFF, MORPH ####[place] [address] Basophil, Abs Manual 0.15 10 3/mcL Normal 0.00-0.27 [facility] ([place]) Comment on above: Performed By: #### C BC, BMP, GFR, DIFF, MORPH ####[address] [address] Cells Counted 100 Normal [facility] ([place]) Comment on above: Performed By: #### C BC, BMP, GFR, DIFF, MORPH ####[address] [address] Eosinophil %, Manual 2.0 % Normal 0.0-6.0 [facility] ([place]) Comment on above: Performed By: #### C BC, BMP, GFR, DIFF, MORPH ####[address] [address] Eosinophil, Abs Manual 0.30 10 3/mcL Normal 0.00-0.65 [facility] ([place]) Comment on above: Performed By: #### C BC, BMP, GFR, DIFF, MORPH ####[address] [address] Lymphocyte %, Manual 7.0 % Low 20.0-40.0 [facility] ([place]) Comment on above: Performed By: #### C BC, BMP, GFR, DIFF, MORPH ####[address] [address] Lymphocyte, Abs Manual 1.04 10 3/mcL Normal 0.90-4.32 [facility] ([place]) Comment on above: Performed By: #### C BC, BMP, GFR, DIFF, MORPH ####[address] [address] Monocyte %, Manual 2.0 % Normal 2.0-13.0 [facility] ([place]) Comment on above: Performed By: #### C BC, BMP, GFR, DIFF, MORPH ####[address] [address] Monocyte, Abs Manual 0.30 10 3/mcL Normal 0.09-1.40 [facility] ([place]) Comment on above: Performed By: #### C BC, BMP, GFR, DIFF, MORPH ####[address] [address] Neutrophil %, Manual 87.0 % High 50.0-75.0 [facility] ([place]) Comment on above: Performed By: #### C BC, BMP, GFR, DIFF, MORPH ####[place] [address] Neutrophil, Abs Manual 13.11 10 3/mcL High 2.25-8.10 [facility] ([place]) Comment on above: Performed By: #### C BC, BMP, GFR, DIFF, MORPH ####[place] [address] .Morphon 09-01-2019 Platelets (Bld) [#/Vol] Slt Increased Normal [facility] ([place]) Comment on above: Performed By: #### C BC, BMP, GFR, DIFF, MORPH ####[place] [address] RBC morphology finding Nom (Bld) Normal Normal [facility] ([place]) Comment on above: Performed By: #### C BC, BMP, GFR, DIFF, MORPH ####[address] 09-01-2019 Calcium [Mass/Vol] 8.6 mg/dL Normal 8.4-10.1 [facility] ([place]) Comment on above: Performed By: #### C BC, BMP, GFR, DIFF, MORPH ####[place] [address] CO2 [Moles/Vol] 24 mmol/L Normal 22-32 [facility] ([place]) Comment on above: Performed By: #### C BC, BMP, GFR, DIFF, MORPH ####[place] [address] Creatinine [Mass/Vol] 0.46 mg/dL Low 0.50-1.20 [facility] ([place]) Comment on above: Performed By: #### C BC, BMP, GFR, DIFF, MORPH ####[place] [address] Electrolyte Balance 10.0 mEq/L Normal 4.0-15.0 [facility] ([place]) Comment on above: Performed By: #### C BC, BMP, GFR, DIFF, MORPH ####[address] [address] Glucose [Mass/Vol] 106 mg/dL Normal 82-115 [facility] ([place]) Comment on above: Performed By: #### C BC, BMP, GFR, DIFF, MORPH ####[address] [address] Potassium [Moles/Vol] 3.9 mmol/L Normal 3.5-5.0 [facility] ([place]) Comment on above: Performed By: #### C BC, BMP, GFR, DIFF, MORPH ####[address] [address] Urea nitrogen [Mass/Vol] 9.0 mg/dL Normal 8.0-22.0 [facility] ([place]) Comment on above: Performed By: #### C BC, BMP, GFR, DIFF, MORPH ####[place] [address] Urea nitrogen/Creatinine [Mass ratio] 19.6 ratio Normal 10.0-22.0 [facility] ([place]) Comment on above: Performed By: #### C BC, BMP, GFR, DIFF, MORPH ####[address] [address] Chloride [Moles/Vol] 101 mmol/L Normal 98-110 [facility] ([place]) Comment on above: Performed By: #### C BC, BMP, GFR, DIFF, MORPH ####[address] [address] Sodium [Moles/Vol] 135 mmol/L Low 136-145 [facility] ([place]) Comment on above: Performed By: #### C BC, BMP, GFR, DIFF, MORPH ####[address] [address] CBCon 09-01-2019 Erythrocyte distribution width (RBC) [Ratio] 14.7 % Normal 11.5-15.5 [facility] ([place]) Comment on above: Performed By: #### C BC, BMP, GFR, DIFF, MORPH ####[address] [address] Hematocrit (Bld) [Volume fraction] 29.6 % Low 34.0-46.0 [facility] ([place]) Comment on above: Performed By: #### C BC, BMP, GFR, DIFF, MORPH ####[address] [address] Hemoglobin (Bld) [Mass/Vol] 9.9 G/dL Low 12.0-16.0 [facility] ([place]) Comment on above: Performed By: #### C BC, BMP, GFR, DIFF, MORPH ####[address] [address] MCH (RBC) [Entitic mass] 32.8 pg Normal 27.0-33.0 [facility] ([place]) Comment on above: Performed By: #### C BC, BMP, GFR, DIFF, MORPH ####[address] [address] MCHC (RBC) [Mass/Vol] 33.5 G/dL Normal 32.0-36.0 [facility] ([place]) Comment on above: Performed By: #### C BC, BMP, GFR, DIFF, MORPH ####[address] [address] MCV (RBC) [Entitic vol] 97.9 fL Normal 80.0-99.0 [facility] ([place]) Comment on above: Performed By: #### C BC, BMP, GFR, DIFF, MORPH ####[address] [address] Platelet mean volume (Bld) [Entitic vol] 7.0 fL Normal 6.6-10.5 [facility] ([place]) Comment on above: Performed By: #### C BC, BMP, GFR, DIFF, MORPH ####[address] [address] Platelets (Bld) [#/Vol] 481 10 3/mcL High 150-450 [facility] ([place]) Comment on above: Performed By: #### C BC, BMP, GFR, DIFF, MORPH ####[address] [address] RBC (Bld) [#/Vol] 3.03 10 6/mcL Low 4.10-5.30 [facility] ([place]) Comment on above: Performed By: #### C BC, BMP, GFR, DIFF, MORPH ####[address] [address] WBC (Bld) [#/Vol] 14.90 10 3/mcL High 4.50-10.80 [facility] ([place]) Comment on above: Performed By: #### C BC, BMP, GFR, DIFF, MORPH ####[address] [address] .Auto Diffon 08-31-2019 Ammonia (P) [Mass/Vol] 1.40 10 3/mcL Normal 0.09-1.40 [facility] ([place]) Comment on above: Performed By: #### C BC, ADIFF, ANEU, BMP, GFR ####[address] [address] Basophils (Bld) [#/Vol] 0.10 10 3/mcL Normal 0.00-0.27 [facility] ([place]) Comment on above: Performed By: #### C BC, ADIFF, ANEU, BMP, GFR ####[address] [address] Basophils/100 WBC (Bld) 0.5 % Normal 0.0-2.5 [facility] ([place]) Comment on above: Performed By: #### C BC, ADIFF, ANEU, BMP, GFR ####[address] [address] Eosinophils (Bld) [#/Vol] 0.50 10 3/mcL Normal 0.00-0.65 [facility] ([place]) Comment on above: Performed By: #### C BC, ADIFF, ANEU, BMP, GFR ####[address] [address] Eosinophils/100 WBC (Bld) 3.3 % Normal 0.0-6.0 [facility] ([place]) Comment on above: Performed By: #### C BC, ADIFF, ANEU, BMP, GFR ####[address] [address] Lymphocytes (Bld) [#/Vol] 1.30 10 3/mcL Normal 0.90-4.32 [facility] ([place]) Comment on above: Performed By: #### C BC, ADIFF, ANEU, BMP, GFR ####[address] [address] Lymphocytes/100 WBC (Bld) 8.1 % Low 20.0-40.0 [facility] ([place]) Comment on above: Performed By: #### C BC, ADIFF, ANEU, BMP, GFR ####[address] [address] Monocytes/100 WBC (Bld) 9.0 % Normal 2.0-13.0 [facility] ([place]) Comment on above: Performed By: #### C BC, ADIFF, ANEU, BMP, GFR ####[address] [address] Neutrophils/100 WBC (Bld) 79.1 % High 50.0-75.0 [facility] ([place]) Comment on above: Performed By: #### C BC, ADIFF, ANEU, BMP, GFR ####[address] [address] .GFRon 08-31-2019 GFR Non- >60 Normal [facility] ([place]) Comment on above: Result Comment: GFR Population mean for , Non- Americans Ages 20-29 = 116 mL/min/1.73 sq.m. Ages 30-39 = 107 mL/min/1.73 sq.m. Ages 40-49 = 99 mL/min/1.73 sq.m. Ages 50-59 = 93 mL/min/1.73 sq.m. Ages 60-69 = 85 mL/min/1.73 sq.m. Ages 70+ = 75 mL/min/1.73 sq.m. Chronic Kidney Disease: Less than 60 mL/min/1.73 square meters End Stage Renal Disease: Less than 15 mL/min/1.73 square meters Performed By: #### C BC, ADIFF, ANEU, BMP, GFR ####[address] [address] GFR >60 Normal [facility] ([place]) Comment on above: Result Comment: GFR Population mean for , Non- Americans Ages 20-29 = 116 mL/min/1.73 sq.m. Ages 30-39 = 107 mL/min/1.73 sq.m. Ages 40-49 = 99 mL/min/1.73 sq.m. Ages 50-59 = 93 mL/min/1.73 sq.m. Ages 60-69 = 85 mL/min/1.73 sq.m. Ages 70+ = 75 mL/min/1.73 sq.m. Chronic Kidney Disease: Less than 60 mL/min/1.73 square meters End Stage Renal Disease: Less than 15 mL/min/1.73 square meters Performed By: #### C BC, ADIFF, ANEU, BMP, GFR ####[address] [address] .NEUABSon 08-31-2019 Neutrophils (Bld) [#/Vol] 12.50 10 3/mcL High 2.25-8.10 [facility] ([place]) Comment on above: Performed By: #### C BC, ADIFF, ANEU, BMP, GFR ####[place] [address] BMPon 08-31-2019 Creatinine [Mass/Vol] 0.51 mg/dL Normal 0.50-1.20 [facility] ([place]) Comment on above: Performed By: #### C BC, ADIFF, ANEU, BMP, GFR ####[address] [address] Urea nitrogen/Creatinine [Mass ratio] 19.6 ratio Normal 10.0-22.0 [facility] ([place]) Comment on above: Performed By: #### C BC, ADIFF, ANEU, BMP, GFR ####[address] [address] Calcium [Mass/Vol] 8.6 mg/dL Normal 8.4-10.1 [facility] ([place]) Comment on above: Performed By: #### C BC, ADIFF, ANEU, BMP, GFR ####[place] [address] Chloride [Moles/Vol] 101 mmol/L Normal 98-110 [facility] ([place]) Comment on above: Performed By: #### C BC, ADIFF, ANEU, BMP, GFR ####[place] [address] CO2 [Moles/Vol] 25 mmol/L Normal 22-32 [facility] ([place]) Comment on above: Performed By: #### C BC, ADIFF, ANEU, BMP, GFR ####[address] [address] Electrolyte Balance 9.0 mEq/L Normal 4.0-15.0 [facility] ([place]) Comment on above: Performed By: #### C BC, ADIFF, ANEU, BMP, GFR ####[place] [address] Glucose [Mass/Vol] 112 mg/dL Normal 82-115 [facility] ([place]) Comment on above: Performed By: #### C BC, ADIFF, ANEU, BMP, GFR ####[place] [address] Potassium [Moles/Vol] 4.0 mmol/L Normal 3.5-5.0 [facility] ([place]) Comment on above: Performed By: #### C BC, ADIFF, ANEU, BMP, GFR ####[place] [address] Sodium [Moles/Vol] 135 mmol/L Low 136-145 [facility] ([place]) Comment on above: Performed By: #### C BC, ADIFF, ANEU, BMP, GFR ####[place] [address] Urea nitrogen [Mass/Vol] 10.0 mg/dL Normal 8.0-22.0 [facility] ([place]) Comment on above: Performed By: #### C BC, ADIFF, ANEU, BMP, GFR ####[address] [address] CBCon 08-31-2019 Erythrocyte distribution width (RBC) [Ratio] 14.7 % Normal 11.5-15.5 [facility] ([place]) Comment on above: Performed By: #### C BC, ADIFF, ANEU, BMP, GFR ####[address] [address] Hematocrit (Bld) [Volume fraction] 29.1 % Low 34.0-46.0 [facility] ([place]) Comment on above: Performed By: #### C BC, ADIFF, ANEU, BMP, GFR ####[address] [address] Hemoglobin (Bld) [Mass/Vol] 9.5 G/dL Low 12.0-16.0 [facility] ([place]) Comment on above: Performed By: #### C BC, ADIFF, ANEU, BMP, GFR ####[place] [id number] MCH (RBC) [Entitic mass] 32.5 pg Normal 27.0-33.0 [facility] ([place]) Comment on above: Performed By: #### C BC, ADIFF, ANEU, BMP, GFR ####[address] [address] MCHC (RBC) [Mass/Vol] 32.7 G/dL Normal 32.0-36.0 [facility] ([place]) Comment on above: Performed By: #### C BC, ADIFF, ANEU, BMP, GFR ####[place] [address] MCV (RBC) [Entitic vol] 99.3 fL High 80.0-99.0 [facility] ([place]) Comment on above: Performed By: #### C BC, ADIFF, ANEU, BMP, GFR ####[address] [address] Platelet mean volume (Bld) [Entitic vol] 7.3 fL Normal 6.6-10.5 [facility] ([place]) Comment on above: Performed By: #### C BC, ADIFF, ANEU, BMP, GFR ####[address] [address] Platelets (Bld) [#/Vol] 485 10 3/mcL High 150-450 [facility] ([place]) Comment on above: Performed By: #### C BC, ADIFF, ANEU, BMP, GFR ####[address] [address] RBC (Bld) [#/Vol] 2.93 10 6/mcL Low 4.10-5.30 [facility] ([place]) Comment on above: Performed By: #### C BC, ADIFF, ANEU, BMP, GFR ####[address] [address] WBC (Bld) [#/Vol] 15.80 10 3/mcL High 4.50-10.80 [facility] ([place]) Comment on above: Performed By: #### C BC, ADIFF, ANEU, BMP, GFR ####[address] [address] .GFRon 08-30-2019 GFR >60 Normal [facility] ([place]) Comment on above: Result Comment: GFR Population mean for , Non- Americans Ages 20-29 = 116 mL/min/1.73 sq.m. Ages 30-39 = 107 mL/min/1.73 sq.m. Ages 40-49 = 99 mL/min/1.73 sq.m. Ages 50-59 = 93 mL/min/1.73 sq.m. Ages 60-69 = 85 mL/min/1.73 sq.m. Ages 70+ = 75 mL/min/1.73 sq.m. Chronic Kidney Disease: Less than 60 mL/min/1.73 square meters End Stage Renal Disease: Less than 15 mL/min/1.73 square meters Performed By: #### C BC, BMP, GFR, DIFF, MORPH ####[address] [address] GFR Non- >60 Normal [facility] ([place]) Comment on above: Result Comment: GFR Population mean for , Non- Americans Ages 20-29 = 116 mL/min/1.73 sq.m. Ages 30-39 = 107 mL/min/1.73 sq.m. Ages 40-49 = 99 mL/min/1.73 sq.m. Ages 50-59 = 93 mL/min/1.73 sq.m. Ages 60-69 = 85 mL/min/1.73 sq.m. Ages 70+ = 75 mL/min/1.73 sq.m. Chronic Kidney Disease: Less than 60 mL/min/1.73 square meters End Stage Renal Disease: Less than 15 mL/min/1.73 square meters Performed By: #### C BC, BMP, GFR, DIFF, MORPH ####[place] [address] .Manual Diffon 08-30-2019 Bands 1.0 % Normal 0.0-5.0 [facility] ([place]) Comment on above: Performed By: #### C BC, BMP, GFR, DIFF, MORPH ####[place] [address] Basophil %, Manual 0.0 % Normal 0.0-2.5 [facility] ([place]) Comment on above: Performed By: #### C BC, BMP, GFR, DIFF, MORPH ####[place] [address] Basophil, Abs Manual 0.00 10 3/mcL Normal 0.00-0.27 [facility] ([place]) Comment on above: Performed By: #### C BC, BMP, GFR, DIFF, MORPH ####[place] [address] Cells Counted 100 Normal [facility] ([place]) Comment on above: Performed By: #### C BC, BMP, GFR, DIFF, MORPH ####[place] [address] Eosinophil %, Manual 4.0 % Normal 0.0-6.0 [facility] ([place]) Comment on above: Performed By: #### C BC, BMP, GFR, DIFF, MORPH ####[place] [address] Eosinophil, Abs Manual 0.64 10 3/mcL Normal 0.00-0.65 [facility] ([place]) Comment on above: Performed By: #### C BC, BMP, GFR, DIFF, MORPH ####[place] [address] Lymphocyte %, Manual 15.0 % Low 20.0-40.0 [facility] ([place]) Comment on above: Performed By: #### C BC, BMP, GFR, DIFF, MORPH ####[address] [address] Lymphocyte, Abs Manual 2.38 10 3/mcL Normal 0.90-4.32 [facility] ([place]) Comment on above: Performed By: #### C BC, BMP, GFR, DIFF, MORPH ####[place] [address] Metamyelocytes/100 WBC (Bld) 1.0 % Normal [facility] ([place]) Comment on above: Performed By: #### C BC, BMP, GFR, DIFF, MORPH ####[address] [address] Monocyte %, Manual 9.0 % Normal 2.0-13.0 [facility] ([place]) Comment on above: Performed By: #### C BC, BMP, GFR, DIFF, MORPH ####[place] [address] Monocyte, Abs Manual 1.43 10 3/mcL High 0.09-1.40 [facility] ([place]) Comment on above: Performed By: #### C BC, BMP, GFR, DIFF, MORPH ####[address] [address] Neutrophil %, Manual 70.0 % Normal 50.0-75.0 [facility] ([place]) Comment on above: Performed By: #### C BC, BMP, GFR, DIFF, MORPH ####[address] [address] Neutrophil, Abs Manual 11.29 10 3/mcL High 2.25-8.10 [facility] ([place]) Comment on above: Performed By: #### C BC, BMP, GFR, DIFF, MORPH ####[place] [address] .Morphon 08-30-2019 Platelets (Bld) [#/Vol] Slt Increased Normal [facility] ([place]) Comment on above: Performed By: #### C BC, BMP, GFR, DIFF, MORPH ####[address] [address] Polychrom Slight Normal [facility] ([place]) Comment on above: Performed By: #### C BC, BMP, GFR, DIFF, MORPH ####[address] [address] BMPon 08-30-2019 Creatinine [Mass/Vol] 0.47 mg/dL Low 0.50-1.20 [facility] ([place]) Comment on above: Performed By: #### C BC, BMP, GFR, DIFF, MORPH ####[place] [address] Urea nitrogen/Creatinine [Mass ratio] 19.1 ratio Normal 10.0-22.0 [facility] ([place]) Comment on above: Performed By: #### C BC, BMP, GFR, DIFF, MORPH ####[place] [address] Calcium [Mass/Vol] 8.4 mg/dL Normal 8.4-10.1 [facility] ([place]) Comment on above: Performed By: #### C BC, BMP, GFR, DIFF, MORPH ####[place] [address] Chloride [Moles/Vol] 100 mmol/L Normal 98-110 [facility] ([place]) Comment on above: Performed By: #### C BC, BMP, GFR, DIFF, MORPH ####[place] [address] CO2 [Moles/Vol] 26 mmol/L Normal 22-32 [facility] ([place]) Comment on above: Performed By: #### C BC, BMP, GFR, DIFF, MORPH ####[place] [address] Electrolyte Balance 8.0 mEq/L Normal 4.0-15.0 [facility] ([place]) Comment on above: Performed By: #### C BC, BMP, GFR, DIFF, MORPH ####[address] [address] Glucose [Mass/Vol] 103 mg/dL Normal 82-115 [facility] ([place]) Comment on above: Performed By: #### C BC, BMP, GFR, DIFF, MORPH ####[place] [address] Potassium [Moles/Vol] 3.3 mmol/L Low 3.5-5.0 [facility] ([place]) Comment on above: Performed By: #### C BC, BMP, GFR, DIFF, MORPH ####[place] [address] Sodium [Moles/Vol] 134 mmol/L Low 136-145 [facility] ([place]) Comment on above: Performed By: #### C BC, BMP, GFR, DIFF, MORPH ####[place] [address] Urea nitrogen [Mass/Vol] 9.0 mg/dL Normal 8.0-22.0 [facility] ([place]) Comment on above: Performed By: #### C BC, BMP, GFR, DIFF, MORPH ####[place] [address] CBCon 08-30-2019 Erythrocyte distribution width (RBC) [Ratio] 14.7 % Normal 11.5-15.5 [facility] ([place]) Comment on above: Performed By: #### C BC, BMP, GFR, DIFF, MORPH ####[place] [address] Hematocrit (Bld) [Volume fraction] 29.8 % Low 34.0-46.0 [facility] ([place]) Comment on above: Performed By: #### C BC, BMP, GFR, DIFF, MORPH ####[place] [address] Hemoglobin (Bld) [Mass/Vol] 9.8 G/dL Low 12.0-16.0 [facility] ([place]) Comment on above: Performed By: #### C BC, BMP, GFR, DIFF, MORPH ####[place] [address] MCH (RBC) [Entitic mass] 32.7 pg Normal 27.0-33.0 [facility] ([place]) Comment on above: Performed By: #### C BC, BMP, GFR, DIFF, MORPH ####[address] [address] MCHC (RBC) [Mass/Vol] 33.1 G/dL Normal 32.0-36.0 [facility] ([place]) Comment on above: Performed By: #### C BC, BMP, GFR, DIFF, MORPH ####[address] [address] MCV (RBC) [Entitic vol] 98.7 fL Normal 80.0-99.0 [facility] ([place]) Comment on above: Performed By: #### C BC, BMP, GFR, DIFF, MORPH ####[address] [address] Platelet mean volume (Bld) [Entitic vol] 7.1 fL Normal 6.6-10.5 [facility] ([place]) Comment on above: Performed By: #### C BC, BMP, GFR, DIFF, MORPH ####[place] [id number] Platelets (Bld) [#/Vol] 504 10 3/mcL High 150-450 [facility] ([place] Comment on above: Performed By: #### C BC, BMP, GFR, DIFF, MORPH ####[place] [address] RBC (Bld) [#/Vol] 3.02 10 6/mcL Low 4.10-5.30 [facility] ([place]) Comment on above: Performed By: #### C BC, BMP, GFR, DIFF, MORPH ####[place] [id number] WBC (Bld) [#/Vol] 15.90 10 3/mcL High 4.50-10.80 [facility] ([place]) Comment on above: Performed By: #### C BC, BMP, GFR, DIFF, MORPH ####[place] [id number] .GFRon 08-29-2019 GFR Non- >60 Normal [facility] ([place]) Comment on above: Result Comment: GFR Population mean for , Non- Americans Ages 20-29 = 116 mL/min/1.73 sq.m. Ages 30-39 = 107 mL/min/1.73 sq.m. Ages 40-49 = 99 mL/min/1.73 sq.m. Ages 50-59 = 93 mL/min/1.73 sq.m. Ages 60-69 = 85 mL/min/1.73 sq.m. Ages 70+ = 75 mL/min/1.73 sq.m. Chronic Kidney Disease: Less than 60 mL/min/1.73 square meters End Stage Renal Disease: Less than 15 mL/min/1.73 square meters Performed By: #### C BC, BMP, GFR, DIFF, MORPH ####[place] [address] GFR >60 Normal [facility] ([place]) Comment on above: Result Comment: GFR Population mean for , Non- Americans Ages 20-29 = 116 mL/min/1.73 sq.m. Ages 30-39 = 107 mL/min/1.73 sq.m. Ages 40-49 = 99 mL/min/1.73 sq.m. Ages 50-59 = 93 mL/min/1.73 sq.m. Ages 60-69 = 85 mL/min/1.73 sq.m. Ages 70+ = 75 mL/min/1.73 sq.m. Chronic Kidney Disease: Less than 60 mL/min/1.73 square meters End Stage Renal Disease: Less than 15 mL/min/1.73 square meters Performed By: #### C BC, BMP, GFR, DIFF, MORPH ####[place] [address] .Manual Diffon 08-29-2019 Basophil %, Manual 1.0 % Normal 0.0-2.5 [facility] ([place]) Comment on above: Performed By: #### C BC, BMP, GFR, DIFF, MORPH ####[place] [address] Basophil, Abs Manual 0.18 10 3/mcL Normal 0.00-0.27 [facility] ([place]) Comment on above: Performed By: #### C BC, BMP, GFR, DIFF, MORPH ####[place] [address] Cells Counted 100 Normal [facility] ([place]) Comment on above: Performed By: #### C BC, BMP, GFR, DIFF, MORPH ####[address] [address] Eosinophil %, Manual 0.0 % Normal 0.0-6.0 [facility] ([place]) Comment on above: Performed By: #### C BC, BMP, GFR, DIFF, MORPH ####[address] [address] Eosinophil, Abs Manual 0.00 10 3/mcL Normal 0.00-0.65 [facility] ([place]) Comment on above: Performed By: #### C BC, BMP, GFR, DIFF, MORPH ####[place] [address] Lymphocyte %, Manual 7.0 % Low 20.0-40.0 [facility] ([place]) Comment on above: Performed By: #### C BC, BMP, GFR, DIFF, MORPH ####[place] [address] Lymphocyte, Abs Manual 1.29 10 3/mcL Normal 0.90-4.32 [facility] ([place]) Comment on above: Performed By: #### C BC, BMP, GFR, DIFF, MORPH ####[place] [address] Monocyte %, Manual 5.0 % Normal 2.0-13.0 [facility] ([place]) Comment on above: Performed By: #### C BC, BMP, GFR, DIFF, MORPH ####[address] [address] Monocyte, Abs Manual 0.92 10 3/mcL Normal 0.09-1.40 [facility] ([place]) Comment on above: Performed By: #### C BC, BMP, GFR, DIFF, MORPH ####[place] [address] Myelocyte 2.0 % Normal [facility] ([place]) Comment on above: Performed By: #### C BC, BMP, GFR, DIFF, MORPH ####[place] [address] Neutrophil %, Manual 85.0 % High 50.0-75.0 [facility] ([place]) Comment on above: Performed By: #### C BC, BMP, GFR, DIFF, MORPH ####[place] [address] Neutrophil, Abs Manual 15.64 10 3/mcL High 2.25-8.10 [facility] ([place]) Comment on above: Performed By: #### C BC, BMP, GFR, DIFF, MORPH ####[place] [address] .Morphon 08-29-2019 Platelets (Bld) [#/Vol] Normal Normal [facility] ([place]) Comment on above: Performed By: #### C BC, BMP, GFR, DIFF, MORPH ####[place] [address] Polychrom Slight Normal [facility] ([place]) Comment on above: Performed By: #### C BC, BMP, GFR, DIFF, MORPH ####[place] [address] BMPon 08-29-2019 Calcium [Mass/Vol] 7.8 mg/dL Low 8.4-10.1 [facility] ([place]) Comment on above: Performed By: #### C BC, BMP, GFR, DIFF, MORPH ####[place] [address] Chloride [Moles/Vol] 96 mmol/L Low 98-110 [facility] ([place]) Comment on above: Performed By: #### C BC, BMP, GFR, DIFF, MORPH ####[place] [address] CO2 [Moles/Vol] 26 mmol/L Normal 22-32 [facility] ([place]) Comment on above: Performed By: #### C BC, BMP, GFR, DIFF, MORPH ####[place] [address] Creatinine [Mass/Vol] 0.44 mg/dL Low 0.50-1.20 [facility] ([place]) Comment on above: Performed By: #### C BC, BMP, GFR, DIFF, MORPH ####[address] [address] Electrolyte Balance 9.0 mEq/L Normal 4.0-15.0 [facility] ([place]) Comment on above: Performed By: #### C BC, BMP, GFR, DIFF, MORPH ####[address] [address] Glucose [Mass/Vol] 146 mg/dL High 82-115 [facility] ([place]) Comment on above: Performed By: #### C BC, BMP, GFR, DIFF, MORPH ####[address] [address] Potassium [Moles/Vol] 3.4 mmol/L Low 3.5-5.0 [facility] ([place]) Comment on above: Performed By: #### C BC, BMP, GFR, DIFF, MORPH ####[place] [address] Sodium [Moles/Vol] 131 mmol/L Low 136-145 [facility] ([place]) Comment on above: Performed By: #### C BC, BMP, GFR, DIFF, MORPH ####[place] [address] Urea nitrogen [Mass/Vol] 9.0 mg/dL Normal 8.0-22.0 [facility] ([place]) Comment on above: Performed By: #### C BC, BMP, GFR, DIFF, MORPH ####[place] [address] Urea nitrogen/Creatinine [Mass ratio] 20.5 ratio Normal 10.0-22.0 [facility] ([place]) Comment on above: Performed By: #### C BC, BMP, GFR, DIFF, MORPH ####[place] [address] CBCon 08-29-2019 Erythrocyte distribution width (RBC) [Ratio] 14.4 % Normal 11.5-15.5 [facility] ([place]) Comment on above: Performed By: #### C BC, BMP, GFR, DIFF, MORPH ####[address] [address] Hematocrit (Bld) [Volume fraction] 29.2 % Low 34.0-46.0 [facility] ([place]) Comment on above: Performed By: #### C BC, BMP, GFR, DIFF, MORPH ####[place] [address] Hemoglobin (Bld) [Mass/Vol] 9.7 G/dL Low 12.0-16.0 [facility] ([place]) Comment on above: Performed By: #### C BC, BMP, GFR, DIFF, MORPH ####[place] [address] MCH (RBC) [Entitic mass] 32.5 pg Normal 27.0-33.0 [facility] ([place]) Comment on above: Performed By: #### C BC, BMP, GFR, DIFF, MORPH ####[place] [address] MCHC (RBC) [Mass/Vol] 33.2 G/dL Normal 32.0-36.0 [facility] ([place]) Comment on above: Performed By: #### C BC, BMP, GFR, DIFF, MORPH ####[place] [address] MCV (RBC) [Entitic vol] 97.8 fL Normal 80.0-99.0 [facility] ([place]) Comment on above: Performed By: #### C BC, BMP, GFR, DIFF, MORPH ####[place] [address] Platelet mean volume (Bld) [Entitic vol] 6.7 fL Normal 6.6-10.5 [facility] ([place]) Comment on above: Performed By: #### C BC, BMP, GFR, DIFF, MORPH ####[place] [id number] Platelets (Bld) [#/Vol] 434 10 3/mcL Normal 150-450 [facility] ([place]) Comment on above: Performed By: #### C BC, BMP, GFR, DIFF, MORPH ####[place] [address] RBC (Bld) [#/Vol] 2.98 10 6/mcL Low 4.10-5.30 [facility] ([place]) Comment on above: Performed By: #### C BC, BMP, GFR, DIFF, MORPH ####[address] [address] WBC (Bld) [#/Vol] 18.40 10 3/mcL High 4.50-10.80 [facility] ([place]) Comment on above: Performed By: #### C BC, BMP, GFR, DIFF, MORPH ####[address] [address] .Auto Diffon 08-28-2019 Ammonia (P) [Mass/Vol] 2.30 10 3/mcL High 0.09-1.40 [facility] ([place]) Comment on above: Performed By: #### M G, CMP, GFR, CBC, ADIFF, ANEU ####[address] [address] Basophils (Bld) [#/Vol] 0.10 10 3/mcL Normal 0.00-0.27 [facility] ([place]) Comment on above: Performed By: #### M G, CMP, GFR, CBC, ADIFF, ANEU ####[address] [address] Basophils/100 WBC (Bld) 0.4 % Normal 0.0-2.5 [facility] ([place]) Comment on above: Performed By: #### M G, CMP, GFR, CBC, ADIFF, ANEU ####[address] [address] Eosinophils (Bld) [#/Vol] 0.50 10 3/mcL Normal 0.00-0.65 [facility] ([place]) Comment on above: Performed By: #### M G, CMP, GFR, CBC, ADIFF, ANEU ####[address] [address] Eosinophils/100 WBC (Bld) 2.8 % Normal 0.0-6.0 [facility] ([place]) Comment on above: Performed By: #### M G, CMP, GFR, CBC, ADIFF, ANEU ####[address] [address] Lymphocytes (Bld) [#/Vol] 1.50 10 3/mcL Normal 0.90-4.32 [facility] ([place]) Comment on above: Performed By: #### M G, CMP, GFR, CBC, ADIFF, ANEU ####[address] [address] Lymphocytes/100 WBC (Bld) 8.2 % Low 20.0-40.0 [facility] ([place]) Comment on above: Performed By: #### M G, CMP, GFR, CBC, ADIFF, ANEU ####[address] [address] Monocytes/100 WBC (Bld) 13.1 % High 2.0-13.0 [facility] ([place]) Comment on above: Performed By: #### M G, CMP, GFR, CBC, ADIFF, ANEU ####[address] [address] Neutrophils/100 WBC (Bld) 75.5 % High 50.0-75.0 [facility] ([place]) Comment on above: Performed By: #### M G, CMP, GFR, CBC, ADIFF, ANEU ####[address] [address] .GFRon 08-28-2019 GFR >60 Normal [facility] ([place]) Comment on above: Result Comment: GFR Population mean for , Non- Americans Ages 20-29 = 116 mL/min/1.73 sq.m. Ages 30-39 = 107 mL/min/1.73 sq.m. Ages 40-49 = 99 mL/min/1.73 sq.m. Ages 50-59 = 93 mL/min/1.73 sq.m. Ages 60-69 = 85 mL/min/1.73 sq.m. Ages 70+ = 75 mL/min/1.73 sq.m. Chronic Kidney Disease: Less than 60 mL/min/1.73 square meters End Stage Renal Disease: Less than 15 mL/min/1.73 square meters Performed By: #### G FR, BMP ####[address] [address] GFR Non- >60 Normal [facility] ([place]) Comment on above: Result Comment: GFR Population mean for , Non- Americans Ages 20-29 = 116 mL/min/1.73 sq.m. Ages 30-39 = 107 mL/min/1.73 sq.m. Ages 40-49 = 99 mL/min/1.73 sq.m. Ages 50-59 = 93 mL/min/1.73 sq.m. Ages 60-69 = 85 mL/min/1.73 sq.m. Ages 70+ = 75 mL/min/1.73 sq.m. Chronic Kidney Disease: Less than 60 mL/min/1.73 square meters End Stage Renal Disease: Less than 15 mL/min/1.73 square meters Performed By: #### G FR, BMP ####[place] [address] .NEUABSon 08-28-2019 Neutrophils (Bld) [#/Vol] 13.50 10 3/mcL High 2.25-8.10 [facility] ([place]) Comment on above: Performed By: #### M G, CMP, GFR, CBC, ADIFF, ANEU ####[place] [address] BMPon 08-28-2019 Potassium [Moles/Vol] 3.5 mmol/L Normal 3.5-5.0 [facility] ([place]) Comment on above: Performed By: #### G FR, BMP ####[place] [address] Calcium [Mass/Vol] 7.5 mg/dL Low 8.4-10.1 [facility] ([place]) Comment on above: Performed By: #### G FR, BMP ####[place] [address] Chloride [Moles/Vol] 100 mmol/L Normal 98-110 [facility] ([place]) Comment on above: Performed By: #### G FR, BMP ####[place] [address] CO2 [Moles/Vol] 25 mmol/L Normal 22-32 [facility] ([place]) Comment on above: Performed By: #### G FR, BMP ####[place] [address] Creatinine [Mass/Vol] 0.45 mg/dL Low 0.50-1.20 [facility] ([place]) Comment on above: Performed By: #### G FR, BMP ####[place] [address] Electrolyte Balance 8.0 mEq/L Normal 4.0-15.0 [facility] ([place]) Comment on above: Performed By: #### G FR, BMP ####[place] [address] Glucose [Mass/Vol] 103 mg/dL Normal 82-115 [facility] ([place]) Comment on above: Performed By: #### G FR, BMP ####[place] [address] Sodium [Moles/Vol] 133 mmol/L Low 136-145 [facility] ([place]) Comment on above: Performed By: #### G FR, BMP ####[place] [address] Urea nitrogen [Mass/Vol] 10.0 mg/dL Normal 8.0-22.0 [facility] ([place]) Comment on above: Performed By: #### G FR, BMP ####[place] [address] Urea nitrogen/Creatinine [Mass ratio] 22.2 ratio High 10.0-22.0 [facility] ([place]) Comment on above: Performed By: #### G FR, BMP ####[place] [address] CBCon 08-28-2019 Erythrocyte distribution width (RBC) [Ratio] 14.2 % Normal 11.5-15.5 [facility] ([place]) Comment on above: Performed By: #### M G, CMP, GFR, CBC, ADIFF, ANEU ####[place] [address] Hematocrit (Bld) [Volume fraction] 27.4 % Low 34.0-46.0 [facility] ([place]) Comment on above: Performed By: #### M G, CMP, GFR, CBC, ADIFF, ANEU ####[place] [id number] Hemoglobin (Bld) [Mass/Vol] 9.1 G/dL Low 12.0-16.0 [facility] ([place]) Comment on above: Performed By: #### M G, CMP, GFR, CBC, ADIFF, ANEU ####[place] [address] MCH (RBC) [Entitic mass] 33.0 pg Normal 27.0-33.0 [facility] ([place]) Comment on above: Performed By: #### M G, CMP, GFR, CBC, ADIFF, ANEU ####[place] [address] MCHC (RBC) [Mass/Vol] 33.2 G/dL Normal 32.0-36.0 [facility] ([place]) Comment on above: Performed By: #### M G, CMP, GFR, CBC, ADIFF, ANEU ####[place] [address] MCV (RBC) [Entitic vol] 99.6 fL High 80.0-99.0 [facility] ([place]) Comment on above: Performed By: #### M G, CMP, GFR, CBC, ADIFF, ANEU ####[place] [address] Platelet mean volume (Bld) [Entitic vol] 7.1 fL Normal 6.6-10.5 [facility] ([place]) Comment on above: Performed By: #### M G, CMP, GFR, CBC, ADIFF, ANEU ####[place] [id number] Platelets (Bld) [#/Vol] 363 10 3/mcL Normal 150-450 [facility] ([place]) Comment on above: Performed By: #### M G, CMP, GFR, CBC, ADIFF, ANEU ####[id number] [place], [place] [address] RBC (Bld) [#/Vol] 2.75 10 6/mcL Low 4.10-5.30 [facility] ([place]) Comment on above: Performed By: #### M G, CMP, GFR, CBC, ADIFF, ANEU ####[address] [address] WBC (Bld) [#/Vol] 17.90 10 3/mcL High 4.50-10.80 [facility] ([place]) Comment on above: Performed By: #### M G, CMP, GFR, CBC, ADIFF, ANEU ####[address] [address] CBLon 08-28-2019 CBL . MICRO - Microbiology PROCEDURE: Blood Culture (bacterial) [*1] SOURCE: Blood BODY SITE: COLLECTED DATE/TIME: 08/23/2019 19:51 EDT RECEIVED DATE/TIME: 08/23/2019 20:23 EDT START DATE/TIME: 08/23/2019 20:23 EDT FREE TEXT SOURCE: FINAL REPORTS Final Report [] Verified Date/Time/Personnel: 08/28/2019 20:59 EDT Blood Culture: No Growth at 5 days. PRELIMINARY REPORTS Preliminary Report [] Verified Date/Time/Personnel: 08/23/2019 20:59 EDT Culture has been received in lab and is no growth to date. Routine cultures are held for 5 days. Performing Locations *1: This test was performed at: [facility], [address] [place] [address], [address] [place] [address] ([place]) Comment on above: Performed By: #### C BC, CMP, GFR, DIFF, MORPH #### [place] [address] CBL . MICRO - Microbiology PROCEDURE: Blood Culture (bacterial) [*1] SOURCE: Blood BODY SITE: COLLECTED DATE/TIME: 08/23/2019 19:51 EDT RECEIVED DATE/TIME: 08/23/2019 20:23 EDT START DATE/TIME: 08/23/2019 20:23 EDT FREE TEXT SOURCE: FINAL REPORTS Final Report [] Verified Date/Time/Personnel: 08/28/2019 20:59 EDT Blood Culture: No Growth at 5 days. PRELIMINARY REPORTS Preliminary Report [] Verified Date/Time/Personnel: 08/23/2019 20:59 EDT Culture has been received in lab and is no growth to date. Routine cultures are held for 5 days. Performing Locations *1: This test was performed at: [facility], [address] [place] [address], [address] [place] [address] ([place]) Comment on above: Performed By: #### C BC, CMP, GFR, DIFF, MORPH #### [address] [address] .GFRon 08-27-2019 GFR >60 Normal [facility] ([place]) Comment on above: Result Comment: GFR Population mean for , Non- Americans Ages 20-29 = 116 mL/min/1.73 sq.m. Ages 30-39 = 107 mL/min/1.73 sq.m. Ages 40-49 = 99 mL/min/1.73 sq.m. Ages 50-59 = 93 mL/min/1.73 sq.m. Ages 60-69 = 85 mL/min/1.73 sq.m. Ages 70+ = 75 mL/min/1.73 sq.m. Chronic Kidney Disease: Less than 60 mL/min/1.73 square meters End Stage Renal Disease: Less than 15 mL/min/1.73 square meters Performed By: #### M G, CMP, GFR, CBC, ADIFF, ANEU ####[address] [address] GFR Non- >60 Normal [facility] ([place]) Comment on above: Result Comment: GFR Population mean for , Non- Americans Ages 20-29 = 116 mL/min/1.73 sq.m. Ages 30-39 = 107 mL/min/1.73 sq.m. Ages 40-49 = 99 mL/min/1.73 sq.m. Ages 50-59 = 93 mL/min/1.73 sq.m. Ages 60-69 = 85 mL/min/1.73 sq.m. Ages 70+ = 75 mL/min/1.73 sq.m. Chronic Kidney Disease: Less than 60 mL/min/1.73 square meters End Stage Renal Disease: Less than 15 mL/min/1.73 square meters Performed By: #### M G, CMP, GFR, CBC, ADIFF, ANEU ####[place] [address] .Manual Diffon 08-27-2019 Bands 1.0 % Normal 0.0-5.0 [facility] ([place]) Comment on above: Performed By: #### C BC, DIFF, MORPH ####[place] [address] Basophil %, Manual 0.0 % Normal 0.0-2.5 [facility] ([place]) Comment on above: Performed By: #### C BC, DIFF, MORPH ####[place] [address] Basophil, Abs Manual 0.00 10 3/mcL Normal 0.00-0.27 [facility] ([place]) Comment on above: Performed By: #### C BC, DIFF, MORPH ####[place] [address] Cells Counted 100 Normal [facility] ([place]) Comment on above: Performed By: #### C BC, DIFF, MORPH ####[place] [address] Eosinophil %, Manual 5.0 % Normal 0.0-6.0 [facility] ([place]) Comment on above: Performed By: #### C BC, DIFF, MORPH ####[place] [address] Eosinophil, Abs Manual 0.84 10 3/mcL High 0.00-0.65 [facility] ([place]) Comment on above: Performed By: #### C BC, DIFF, MORPH ####[place] [address] Lymphocyte %, Manual 5.0 % Low 20.0-40.0 [facility] ([place]) Comment on above: Performed By: #### C BC, DIFF, MORPH ####[place] [address] Lymphocyte, Abs Manual 0.84 10 3/mcL Low 0.90-4.32 [facility] ([place]) Comment on above: Performed By: #### C BC, DIFF, MORPH ####[place] [address] Monocyte %, Manual 6.0 % Normal 2.0-13.0 [facility] ([place]) Comment on above: Performed By: #### C BC, DIFF, MORPH ####[place] [address] Monocyte, Abs Manual 1.01 10 3/mcL Normal 0.09-1.40 [facility] ([place]) Comment on above: Performed By: #### C BC, DIFF, MORPH ####[place] [address] Neutrophil %, Manual 83.0 % High 50.0-75.0 [facility] ([place]) Comment on above: Performed By: #### C BC, DIFF, MORPH ####[place] [address] Neutrophil, Abs Manual 14.20 10 3/mcL High 2.25-8.10 [facility] ([place]) Comment on above: Performed By: #### C BC, DIFF, MORPH ####[place] [address] .Morphon 08-27-2019 Platelets (Bld) [#/Vol] Normal Normal [facility] ([place]) Comment on above: Performed By: #### C BC, DIFF, MORPH ####[place] [address] Polychrom Slight Normal [facility] ([place]) Comment on above: Performed By: #### C BC, DIFF, MORPH ####[place] [address] CBCon 08-27-2019 Erythrocyte distribution width (RBC) [Ratio] 14.2 % Normal 11.5-15.5 [facility] ([place]) Comment on above: Performed By: #### C BC, DIFF, MORPH ####[address] [place], [place] [address] Hematocrit (Bld) [Volume fraction] 29.2 % Low 34.0-46.0 [facility] ([place]) Comment on above: Performed By: #### C BC, DIFF, MORPH ####[address] [address] Hemoglobin (Bld) [Mass/Vol] 10.1 G/dL Low 12.0-16.0 [facility] ([place]) Comment on above: Performed By: #### C BC, DIFF, MORPH ####[address] [address] MCH (RBC) [Entitic mass] 33.8 pg High 27.0-33.0 [facility] ([place]) Comment on above: Performed By: #### C BC, DIFF, MORPH ####[address] [address] MCHC (RBC) [Mass/Vol] 34.6 G/dL Normal 32.0-36.0 [facility] ([place]) Comment on above: Performed By: #### C BC, DIFF, MORPH ####[address] [address] MCV (RBC) [Entitic vol] 97.7 fL Normal 80.0-99.0 [facility] ([place]) Comment on above: Performed By: #### C BC, DIFF, MORPH ####[address] [address] Platelet mean volume (Bld) [Entitic vol] 6.6 fL Normal 6.6-10.5 [facility] ([place]) Comment on above: Performed By: #### C BC, DIFF, MORPH ####[address] [address] Platelets (Bld) [#/Vol] 342 10 3/mcL Normal 150-450 [facility] ([place]) Comment on above: Performed By: #### C BC, DIFF, MORPH ####[address] [address] RBC (Bld) [#/Vol] 2.99 10 6/mcL Low 4.10-5.30 [facility] ([place]) Comment on above: Performed By: #### C BC, DIFF, MORPH ####[address] [address] WBC (Bld) [#/Vol] 16.90 10 3/mcL High 4.50-10.80 [facility] ([place]) Comment on above: Performed By: #### C BC, DIFF, MORPH ####[place] [address] CMPon 08-27-2019 Albumin/Globulin [Mass ratio] 0.8 {ratio} Low 0.9-1.6 [facility] ([place]) Comment on above: Performed By: #### M G, CMP, GFR, CBC, ADIFF, ANEU ####[place] [address] ALP [Catalytic activity/Vol] 99 U/L Normal 38-126 [facility] ([place]) Comment on above: Performed By: #### M G, CMP, GFR, CBC, ADIFF, ANEU ####[place] [address] ALT [Catalytic activity/Vol] 50 U/L High 10-49 [facility] ([place]) Comment on above: Performed By: #### M G, CMP, GFR, CBC, ADIFF, ANEU ####[place] [address] Bili Total 0.9 mg/dL Normal 0.2-1.2 [facility] ([place]) Comment on above: Result Comment: Use of this assay is not recommended for patients undergoing treatment with eltrombopag due to the potential for falsely elevated results. Performed By: #### M G, CMP, GFR, CBC, ADIFF, ANEU ####[place] [address] Creatinine [Mass/Vol] 0.39 mg/dL Low 0.50-1.20 [facility] ([place]) Comment on above: Performed By: #### M G, CMP, GFR, CBC, ADIFF, ANEU ####[place] [address] Globulin (S) [Mass/Vol] 3.2 G/dL Normal 1.5-3.8 [facility] ([place]) Comment on above: Performed By: #### M G, CMP, GFR, CBC, ADIFF, ANEU ####[address] [address] Protein [Mass/Vol] 5.8 G/dL Low 6.0-8.5 [facility] ([place]) Comment on above: Performed By: #### M G, CMP, GFR, CBC, ADIFF, ANEU ####[address] [address] Urea nitrogen/Creatinine [Mass ratio] 25.6 ratio High 10.0-22.0 [facility] ([place]) Comment on above: Performed By: #### M G, CMP, GFR, CBC, ADIFF, ANEU ####[address] [address] Potassium [Moles/Vol] 2.5 mmol/L Critically abnormal 3.5-5.0 [facility] ([place]) Comment on above: Performed By: #### M G, CMP, GFR, CBC, ADIFF, ANEU ####[address] [address] Albumin [Mass/Vol] 2.6 G/dL Low 3.2-4.8 [facility] ([place]) Comment on above: Performed By: #### M G, CMP, GFR, CBC, ADIFF, ANEU ####[address] [address] AST [Catalytic activity/Vol] 38 U/L High 8-34 [facility] ([place]) Comment on above: Performed By: #### M G, CMP, GFR, CBC, ADIFF, ANEU ####[address] [address] Calcium [Mass/Vol] 7.3 mg/dL Low 8.4-10.1 [facility] ([place]) Comment on above: Performed By: #### M G, CMP, GFR, CBC, ADIFF, ANEU ####[address] [address] Chloride [Moles/Vol] 96 mmol/L Low 98-110 [facility] ([place]) Comment on above: Performed By: #### M G, CMP, GFR, CBC, ADIFF, ANEU ####[place] [address] CO2 [Moles/Vol] 27 mmol/L Normal 22-32 [facility] ([place]) Comment on above: Performed By: #### M G, CMP, GFR, CBC, ADIFF, ANEU ####[place] [address] Electrolyte Balance 10.0 mEq/L Normal 4.0-15.0 [facility] ([place]) Comment on above: Performed By: #### M G, CMP, GFR, CBC, ADIFF, ANEU ####[place] [address] Glucose [Mass/Vol] 100 mg/dL Normal 82-115 [facility] ([place]) Comment on above: Performed By: #### M G, CMP, GFR, CBC, ADIFF, ANEU ####[place] [address] Sodium [Moles/Vol] 133 mmol/L Low 136-145 [facility] ([place]) Comment on above: Performed By: #### M G, CMP, GFR, CBC, ADIFF, ANEU ####[place] [address] Urea nitrogen [Mass/Vol] 10.0 mg/dL Normal 8.0-22.0 [facility] ([place]) Comment on above: Performed By: #### M G, CMP, GFR, CBC, ADIFF, ANEU ####[place] [address] MGon 08-27-2019 Magnesium [Mass/Vol] 1.9 mg/dL Normal 1.6-2.4 [facility] ([place]) Comment on above: Performed By: #### M G, CMP, GFR, CBC, ADIFF, ANEU ####[address] [address] .Auto Diffon 08-25-2019 Ammonia (P) [Mass/Vol] 1.40 10 3/mcL Normal 0.09-1.40 [facility] ([place]) Comment on above: Performed By: #### C BC, CMP, GFR, DIFF, MORPH #### [address] [address] Basophils (Bld) [#/Vol] 0.00 10 3/mcL Normal 0.00-0.27 [facility] ([place]) Comment on above: Performed By: #### C BC, CMP, GFR, DIFF, MORPH #### [address] [address] Basophils/100 WBC (Bld) 0.2 % Normal 0.0-2.5 [facility] ([place]) Comment on above: Performed By: #### C BC, CMP, GFR, DIFF, MORPH #### [address] [address] Eosinophils (Bld) [#/Vol] 0.10 10 3/mcL Normal 0.00-0.65 [facility] ([place]) Comment on above: Performed By: #### C BC, CMP, GFR, DIFF, MORPH #### [address] [address] Eosinophils/100 WBC (Bld) 0.3 % Normal 0.0-6.0 [facility] ([place]) Comment on above: Performed By: #### C BC, CMP, GFR, DIFF, MORPH #### [address] [address] Lymphocytes (Bld) [#/Vol] 0.60 10 3/mcL Low 0.90-4.32 [facility] ([place]) Comment on above: Performed By: #### C BC, CMP, GFR, DIFF, MORPH #### [address] [address] Lymphocytes/100 WBC (Bld) 2.9 % Low 20.0-40.0 [facility] ([place]) Comment on above: Performed By: #### C BC, CMP, GFR, DIFF, MORPH #### [address] [address] Monocytes/100 WBC (Bld) 7.4 % Normal 2.0-13.0 [facility] ([place]) Comment on above: Performed By: #### C BC, CMP, GFR, DIFF, MORPH #### [address] [address] Neutrophils/100 WBC (Bld) 89.2 % High 50.0-75.0 [facility] ([place]) Comment on above: Performed By: #### C BC, CMP, GFR, DIFF, MORPH #### [address] [address] .GFRon 08-25-2019 GFR >60 Normal [facility] ([place]) Comment on above: Result Comment: GFR Population mean for , Non- Americans Ages 20-29 = 116 mL/min/1.73 sq.m. Ages 30-39 = 107 mL/min/1.73 sq.m. Ages 40-49 = 99 mL/min/1.73 sq.m. Ages 50-59 = 93 mL/min/1.73 sq.m. Ages 60-69 = 85 mL/min/1.73 sq.m. Ages 70+ = 75 mL/min/1.73 sq.m. Chronic Kidney Disease: Less than 60 mL/min/1.73 square meters End Stage Renal Disease: Less than 15 mL/min/1.73 square meters Performed By: #### C BC, CMP, GFR, DIFF, MORPH #### [address] [address] GFR Non- >60 Normal [facility] ([place]) Comment on above: Result Comment: GFR Population mean for , Non- Americans Ages 20-29 = 116 mL/min/1.73 sq.m. Ages 30-39 = 107 mL/min/1.73 sq.m. Ages 40-49 = 99 mL/min/1.73 sq.m. Ages 50-59 = 93 mL/min/1.73 sq.m. Ages 60-69 = 85 mL/min/1.73 sq.m. Ages 70+ = 75 mL/min/1.73 sq.m. Chronic Kidney Disease: Less than 60 mL/min/1.73 square meters End Stage Renal Disease: Less than 15 mL/min/1.73 square meters Performed By: #### C BC, CMP, GFR, DIFF, MORPH #### [address] [address] .NEUABSon 08-25-2019 Neutrophils (Bld) [#/Vol] 17.20 10 3/mcL High 2.25-8.10 [facility] ([place]) Comment on above: Performed By: #### C BC, CMP, GFR, DIFF, MORPH #### [address] [address] BMPon 08-25-2019 Calcium [Mass/Vol] 6.7 mg/dL Critically abnormal 8.4-10.1 [facility] ([place]) Comment on above: Performed By: #### C BC, CMP, GFR, DIFF, MORPH #### [place] [address] Potassium [Moles/Vol] 2.6 mmol/L Critically abnormal 3.5-5.0 [facility] ([place]) Comment on above: Performed By: #### C BC, CMP, GFR, DIFF, MORPH #### [place] [address] Chloride [Moles/Vol] 99 mmol/L Normal 98-110 [facility] ([place]) Comment on above: Performed By: #### C BC, CMP, GFR, DIFF, MORPH #### [place] [address] CO2 [Moles/Vol] 25 mmol/L Normal 22-32 [facility] ([place]) Comment on above: Performed By: #### C BC, CMP, GFR, DIFF, MORPH #### [place] [address] Creatinine [Mass/Vol] 0.38 mg/dL Low 0.50-1.20 [facility] ([place]) Comment on above: Performed By: #### C BC, CMP, GFR, DIFF, MORPH #### [place] [address] Electrolyte Balance 11.0 mEq/L Normal 4.0-15.0 [facility] ([place]) Comment on above: Performed By: #### C BC, CMP, GFR, DIFF, MORPH #### [address] [address] Glucose [Mass/Vol] 72 mg/dL Low 82-115 [facility] ([place]) Comment on above: Performed By: #### C BC, CMP, GFR, DIFF, MORPH #### [address] [address] Sodium [Moles/Vol] 135 mmol/L Low 136-145 [facility] ([place]) Comment on above: Performed By: #### C BC, CMP, GFR, DIFF, MORPH #### [address] [address] Urea nitrogen [Mass/Vol] 20.0 mg/dL Normal 8.0-22.0 [facility] ([place]) Comment on above: Performed By: #### C BC, CMP, GFR, DIFF, MORPH #### [place] [id number] Urea nitrogen/Creatinine [Mass ratio] 52.6 ratio High 10.0-22.0 [facility] ([place]) Comment on above: Performed By: #### C BC, CMP, GFR, DIFF, MORPH #### [address] [address] [facility]Con 08-25-2019 Erythrocyte distribution width (RBC) [Ratio] 14.5 % Normal 11.5-15.5 [facility] ([place]) Comment on above: Performed By: #### C BC, CMP, GFR, DIFF, MORPH #### [address] [address] Hematocrit (Bld) [Volume fraction] 27.5 % Low 34.0-46.0 [facility] ([place]) Comment on above: Performed By: #### C BC, CMP, GFR, DIFF, MORPH #### [address] [address] Hemoglobin (Bld) [Mass/Vol] 9.1 G/dL Low 12.0-16.0 [facility] ([place]) Comment on above: Performed By: #### C BC, CMP, GFR, DIFF, MORPH #### [address] [address] MCH (RBC) [Entitic mass] 33.1 pg High 27.0-33.0 [facility] ([place]) Comment on above: Performed By: #### C BC, CMP, GFR, DIFF, MORPH #### [address] [address] MCHC (RBC) [Mass/Vol] 33.3 G/dL Normal 32.0-36.0 [facility] ([place]) Comment on above: Performed By: #### C BC, CMP, GFR, DIFF, MORPH #### [place] [address] MCV (RBC) [Entitic vol] 99.7 fL High 80.0-99.0 A [facility] ([place]) Comment on above: Performed By: #### C BC, CMP, GFR, DIFF, MORPH #### [place] [address] Platelet mean volume (Bld) [Entitic vol] 7.5 fL Normal 6.6-10.5 [facility] ([place]) Comment on above: Performed By: #### C BC, CMP, GFR, DIFF, MORPH #### [place] [address] Platelets (Bld) [#/Vol] 211 10 3/mcL Normal 150-450 [facility] ([place]) Comment on above: Performed By: #### C BC, CMP, GFR, DIFF, MORPH #### [place] [address] RBC (Bld) [#/Vol] 2.76 10 6/mcL Low 4.10-5.30 [facility] ([place]) Comment on above: Performed By: #### C BC, CMP, GFR, DIFF, MORPH #### [place] [id number] WBC (Bld) [#/Vol] 19.30 10 3/mcL High 4.50-10.80 [facility] ([place]) Comment on above: Performed By: #### C BC, CMP, GFR, DIFF, MORPH #### [place] [address] COVIDon 08-25-2019 COVID 19 Result MANAGER UTILIZATION See Below Normal [facility] ([place]) Comment on above: Result Comment: Negshiva tive Negative for COVID19 (SARS CoV2) by PCR. This test was developed and its performance characteristics determined by [facility]'s [facility] [place]. This test has been authorized by FDA under an Emergency Use Authorization (EUA). This test has been validated in accordance with the FDA's Guidance Document Policy for Diagnostics Testing in Laboratories Certified to Perform High Complexity Testing under CLIA prior to Emergency use Authorization for Coronavirus Disease 2019 during the Public Health Emergency issued on June 20, 2019. Performed By: [address] [address] Principal Planner: Rigoberto Avery III, M.D. CLIA#: [id number] Phone#: Performed By: #### C BC, CMP, GFR, DIFF, MORPH #### [place] [address] COVID 19 Source MANAGER UTILIZATION See Below [facility] ([place]) Comment on above: Result Comment: Naso pharyngeal Swab Performed By: [place] [id number] [place] [address] Principal Planner: Rigoberto Avery III, M.D. CLIA#: [id number] Phone#: Performed By: #### C BC, CMP, GFR, DIFF, MORPH #### [place] [id number] CURon 08-25-2019 CUR . MICRO - Microbiology PROCEDURE: Urine Culture [*1] SOURCE: Urine BODY SITE: COLLECTED DATE/TIME: 08/23/2019 23:54 EDT RECEIVED DATE/TIME: 08/24/2019 08:02 EDT START DATE/TIME: 08/24/2019 08:02 EDT FREE TEXT SOURCE: FINAL REPORTS Final Report [] Verified Date/Time/Personnel: 08/25/2019 14:54 EDT 50,000 - 100,000 cfu/ml Multiple bacterial morphotypes present. Probable Contamination. Suggest recollection if clinically indicated. Performing Locations *1: This test was performed at: [address], [place], [address]- , [place] Normal [facility] ([place]) Comment on above: Performed By: #### C BC, CMP, GFR, DIFF, MORPH #### [address] [address] Jeffrey 08-25-2019 Potassium [Moles/Vol] 3.3 mmol/L Low 3.5-5.0 [facility] ([place]) Comment on above: Performed By: #### C BC, CMP, GFR, DIFF, MORPH #### [address] [address] MGon 08-25-2019 Magnesium [Mass/Vol] 2.3 mg/dL Normal 1.6-2.4 [facility] ([place]) Comment on above: Performed By: #### C BC, CMP, GFR, DIFF, MORPH #### [address] [address] PHOSon 08-25-2019 Phosphate [Mass/Vol] 2.6 mg/dL Normal 2.5-4.5 [facility] ([place]) Comment on above: Performed By: #### C BC, CMP, GFR, DIFF, MORPH #### [address] [address] .Auto Diffon 08-24-2019 Ammonia (P) [Mass/Vol] 1.50 10 3/mcL High 0.09-1.40 [facility] ([place]) Comment on above: Performed By: #### C BC, CMP, GFR, DIFF, MORPH #### [address] [address] Basophils (Bld) [#/Vol] 0.00 10 3/mcL Normal 0.00-0.27 [facility] ([place]) Comment on above: Performed By: #### C BC, CMP, GFR, DIFF, MORPH #### [address] [address] Basophils/100 WBC (Bld) 0.1 % Normal 0.0-2.5 A [facility] ([place]) Comment on above: Performed By: #### C BC, CMP, GFR, DIFF, MORPH #### [address] [address] Eosinophils (Bld) [#/Vol] 0.00 10 3/mcL Normal 0.00-0.65 [facility] ([place]) Comment on above: Performed By: #### C BC, CMP, GFR, DIFF, MORPH #### [address] [address] Eosinophils/100 WBC (Bld) 0.2 % Normal 0.0-6.0 [facility] ([place]) Comment on above: Performed By: #### C BC, CMP, GFR, DIFF, MORPH #### [address] [address] Lymphocytes (Bld) [#/Vol] 1.00 10 3/mcL Normal 0.90-4.32 [facility] ([place]) Comment on above: Performed By: #### C BC, CMP, GFR, DIFF, MORPH #### [address] [address] Lymphocytes/100 WBC (Bld) 4.2 % Low 20.0-40.0 [facility] ([place]) Comment on above: Performed By: #### C BC, CMP, GFR, DIFF, MORPH #### [address] [address] Monocytes/100 WBC (Bld) 6.7 % Normal 2.0-13.0 A [facility] ([place]) Comment on above: Performed By: #### C BC, CMP, GFR, DIFF, MORPH #### [address] [address] Neutrophils/100 WBC (Bld) 88.8 % High 50.0-75.0 [facility] ([place]) Comment on above: Performed By: #### C BC, CMP, GFR, DIFF, MORPH #### [address] [address] .GFRon 08-24-2019 GFR Non- >60 Normal [facility] ([place]) Comment on above: Result Comment: GFR Population mean for , Non- Americans Ages 20-29 = 116 mL/min/1.73 sq.m. Ages 30-39 = 107 mL/min/1.73 sq.m. Ages 40-49 = 99 mL/min/1.73 sq.m. Ages 50-59 = 93 mL/min/1.73 sq.m. Ages 60-69 = 85 mL/min/1.73 sq.m. Ages 70+ = 75 mL/min/1.73 sq.m. Chronic Kidney Disease: Less than 60 mL/min/1.73 square meters End Stage Renal Disease: Less than 15 mL/min/1.73 square meters Performed By: #### C BC, CMP, GFR, DIFF, MORPH #### [address] [address] GFR >60 Normal [facility] ([place]) Comment on above: Result Comment: GFR Population mean for , Non- Americans Ages 20-29 = 116 mL/min/1.73 sq.m. Ages 30-39 = 107 mL/min/1.73 sq.m. Ages 40-49 = 99 mL/min/1.73 sq.m. Ages 50-59 = 93 mL/min/1.73 sq.m. Ages 60-69 = 85 mL/min/1.73 sq.m. Ages 70+ = 75 mL/min/1.73 sq.m. Chronic Kidney Disease: Less than 60 mL/min/1.73 square meters End Stage Renal Disease: Less than 15 mL/min/1.73 square meters Performed By: #### C BC, CMP, GFR, DIFF, MORPH #### [address] [address] .Morphon 08-24-2019 Anisocytosis Ql (Bld) Slight Normal [facility] ([place]) Comment on above: Performed By: #### C BC, CMP, GFR, DIFF, MORPH #### [address] [address] Hypochrom Slight Normal [facility] ([place]) Comment on above: Performed By: #### C BC, CMP, GFR, DIFF, MORPH #### [address] [address] Platelets (Bld) [#/Vol] Normal Normal A [facility] ([place]) Comment on above: Performed By: #### C BC, CMP, GFR, DIFF, MORPH #### [place] [address] Poik Slight Normal [facility] ([place]) Comment on above: Performed By: #### C BC, CMP, GFR, DIFF, MORPH #### [place] [address] .NEUABSon 08-24-2019 Neutrophils (Bld) [#/Vol] 20.50 10 3/mcL High 2.25-8.10 [facility] ([place]) Comment on above: Performed By: #### C BC, CMP, GFR, DIFF, MORPH #### [place] [address] AMYon 08-24-2019 Amylase [Catalytic activity/Vol] 85 U/L Normal 25-115 [facility] ([place]) Comment on above: Performed By: #### C BC, CMP, GFR, DIFF, MORPH #### [place] [address] APTTon 08-24-2019 aPTT Coag (Bld) [Time] 26.2 s Normal 25.0-35.0 [facility] ([place]) Comment on above: Result Comment: For Heparin anticoagulation therapy, the recommended therapeutic range is: 54-77 seconds (APTT Correlation with Anti-Xa therapeutic range of 0.3-0.7 units/ml). PLEASE REFERENCE THE PHARMACY PROTOCOL FOR DOSING. Performed By: #### C BC, CMP, GFR, DIFF, MORPH #### [place] [address] aPTT Coag (Bld) [Time] None Normal [facility] ([place]) Comment on above: Performed By: #### C BC, CMP, GFR, DIFF, MORPH #### [place] [address] CBCon 08-24-2019 Erythrocyte distribution width (RBC) [Ratio] 14.2 % Normal 11.5-15.5 [facility] ([place]) Comment on above: Performed By: #### C BC, CMP, GFR, DIFF, MORPH #### [facility] [address] [place], [place] [address] Hematocrit (Bld) [Volume fraction] 28.9 % Low 34.0-46.0 [facility] ([place]) Comment on above: Performed By: #### C BC, CMP, GFR, DIFF, MORPH #### [address] [address] Hemoglobin (Bld) [Mass/Vol] 9.8 G/dL Low 12.0-16.0 [facility] ([place]) Comment on above: Performed By: #### C BC, CMP, GFR, DIFF, MORPH #### [address] [address] MCH (RBC) [Entitic mass] 33.7 pg High 27.0-33.0 [facility] ([place]) Comment on above: Performed By: #### C BC, CMP, GFR, DIFF, MORPH #### [address] [address] MCHC (RBC) [Mass/Vol] 33.8 G/dL Normal 32.0-36.0 [facility] ([place]) Comment on above: Performed By: #### C BC, CMP, GFR, DIFF, MORPH #### [address] [address] MCV (RBC) [Entitic vol] 99.7 fL High 80.0-99.0 A [facility] ([place]) Comment on above: Performed By: #### C BC, CMP, GFR, DIFF, MORPH #### [address] [address] Platelet mean volume (Bld) [Entitic vol] 8.5 fL Normal 6.6-10.5 [facility] ([place]) Comment on above: Performed By: #### C BC, CMP, GFR, DIFF, MORPH #### [address] [address] Platelets (Bld) [#/Vol] 201 10 3/mcL Normal 150-450 [facility] ([place]) Comment on above: Performed By: #### C BC, CMP, GFR, DIFF, MORPH #### [address] [address] RBC (Bld) [#/Vol] 2.90 10 6/mcL Low 4.10-5.30 [facility] ([place]) Comment on above: Performed By: #### C BC, CMP, GFR, DIFF, MORPH #### [address] [address] WBC (Bld) [#/Vol] 23.10 10 3/mcL High 4.50-10.80 [facility] ([place]) Comment on above: Performed By: #### C BC, CMP, GFR, DIFF, MORPH #### [place] [address] CKon 08-24-2019 CK [Catalytic activity/Vol] 71 U/L Normal 7-185 [facility] ([place]) Comment on above: Performed By: #### C BC, CMP, GFR, DIFF, MORPH #### [place] [address] CMPon 08-24-2019 Albumin/Globulin [Mass ratio] 1.0 {ratio} Normal 0.9-1.6 [facility] ([place]) Comment on above: Performed By: #### C BC, CMP, GFR, DIFF, MORPH #### [place] [address] ALP [Catalytic activity/Vol] 77 U/L Normal 38-126 [facility] ([place]) Comment on above: Performed By: #### C BC, CMP, GFR, DIFF, MORPH #### [place] [address] Bili Total 1.1 mg/dL Normal 0.2-1.2 [facility] ([place]) Comment on above: Result Comment: Use of this assay is not recommended for patients undergoing treatment with eltrombopag due to the potential for falsely elevated results. Performed By: #### C BC, CMP, GFR, DIFF, MORPH #### [address] [address] Creatinine [Mass/Vol] 0.48 mg/dL Low 0.50-1.20 [facility] ([place]) Comment on above: Performed By: #### C BC, CMP, GFR, DIFF, MORPH #### [address] [address] Globulin (S) [Mass/Vol] 3.0 G/dL Normal 1.5-3.8 A [facility] ([place]) Comment on above: Performed By: #### C BC, CMP, GFR, DIFF, MORPH #### [address] [address] Protein [Mass/Vol] 5.9 G/dL Low 6.0-8.5 [facility] ([place]) Comment on above: Performed By: #### C BC, CMP, GFR, DIFF, MORPH #### [address] [address] Urea nitrogen/Creatinine [Mass ratio] 41.7 ratio High 10.0-22.0 [facility] ([place]) Comment on above: Performed By: #### C BC, CMP, GFR, DIFF, MORPH #### [address] [address] Albumin [Mass/Vol] 2.9 G/dL Low 3.2-4.8 [facility] ([place]) Comment on above: Performed By: #### C BC, CMP, GFR, DIFF, MORPH #### [address] [address] ALT [Catalytic activity/Vol] 48 U/L Normal 10-49 [facility] ([place]) Comment on above: Performed By: #### C BC, CMP, GFR, DIFF, MORPH #### [address] [address] AST [Catalytic activity/Vol] 27 U/L Normal 8-34 [facility] ([place]) Comment on above: Performed By: #### C BC, CMP, GFR, DIFF, MORPH #### [address] [address] Calcium [Mass/Vol] 7.3 mg/dL Low 8.4-10.1 [facility] ([place]) Comment on above: Performed By: #### C BC, CMP, GFR, DIFF, MORPH #### [address] [address] Chloride [Moles/Vol] 94 mmol/L Low 98-110 [facility] ([place]) Comment on above: Performed By: #### C BC, CMP, GFR, DIFF, MORPH #### [address] [address] CO2 [Moles/Vol] 28 mmol/L Normal 22-32 [facility] ([place]) Comment on above: Performed By: #### C BC, CMP, GFR, DIFF, MORPH #### [address] [address] Electrolyte Balance 10.0 mEq/L Normal 4.0-15.0 [facility] ([place]) Comment on above: Performed By: #### C BC, CMP, GFR, DIFF, MORPH #### [address] [address] Glucose [Mass/Vol] 100 mg/dL Normal 82-115 [facility] ([place]) Comment on above: Performed By: #### C BC, CMP, GFR, DIFF, MORPH #### [place] [id number] Potassium [Moles/Vol] 2.8 mmol/L Low 3.5-5.0 [facility] ([place]) Comment on above: Performed By: #### C BC, CMP, GFR, DIFF, MORPH #### [place] [id number] Sodium [Moles/Vol] 132 mmol/L Low 136-145 [facility] ([place]) Comment on above: Performed By: #### C BC, CMP, GFR, DIFF, MORPH #### [address] [address] Urea nitrogen [Mass/Vol] 20.0 mg/dL Normal 8.0-22.0 [facility] ([place]) Comment on above: Performed By: #### C BC, CMP, GFR, DIFF, MORPH #### [address] [address] CRPon 08-24-2019 CRP [Mass/Vol] 32.20 mg/dL High <=0.80 [facility] ([place]) Comment on above: Performed By: #### C BC, CMP, GFR, DIFF, MORPH #### [address] [place], [place] [address] CT HEAD OR BRAIN W/O CONTRAS Ton 08-24-2019 CT HEAD OR BRAIN W/O CONTRAST ORIGINAL CT HEAD OR BRAIN W/O CONTRAST CLINICAL STATEMENT: SDH. . Patient fell and hit back of head. Subdural hemorrhage. Patient transferred from [facility]. TECHNIQUE: Axial CT images from skull base to vertex without IV contrast. This exam was performed according to our departmental dose optimization program, and includes the following measures where applicable: automated exposure control, adjustment of the mAs and/or kVp according to patient size and/or exam, and an iterative reconstruction algorithm. COMPARISON: 08/23/2019 FINDINGS: Volume loss noted. 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 Overlying the LEFT frontal region, there is a hyperattenuating extra-axial abnormality measuring approximately 4 mm in thickness. Otherwise, no extra-axial abnormality is identified. There is no mass effect or midline shift. The skull base and calvarium demonstrate no abnormality. The paranasal sinuses are clear. Included mastoid air cells are clear. IMPRESSION: 1. No change in the small hyperattenuating extra-axial collection overlying the LEFT frontal lobe. No mass effect. 2. Mild volume loss. 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 Positive for D-dimer. A positive D-dimer may occur in the following: DVT, PE, DIC, Trauma, Cancer, Sepsis, , Rheumatoid arthritis, Myocardial infarction and Cirrhosis. Note: Not affected by Rheumatoid Factor <=1400 IU/mL The result of the D-Dimer test should be evaluated in the context of all the clinical and laboratory data available. In those instances where the laboratory result does not agree with the clinical evaluation, additional tests should be performed accordingly. Performed By: #### C BC, CMP, GFR, DIFF, MORPH #### [place] [id number] Trixie 08-24-2019 Ferritin [Mass/Vol] 236 ng/mL Normal 8-252 [facility] ([place]) Comment on above: Performed By: #### C BC, CMP, GFR, DIFF, MORPH #### [place] [address] FIBon 08-24-2019 Fibrinogen 482 mg/dL Normal 250-550 [facility] ([place]) Comment on above: Performed By: #### C BC, CMP, GFR, DIFF, MORPH #### [place] [address] LIPon 08-24-2019 Lipase Level 312 U/L Normal 73-393 [facility] ([place]) Comment on above: Performed By: #### C BC, CMP, GFR, DIFF, MORPH #### [place] [address] MGon 08-24-2019 Magnesium [Mass/Vol] 1.9 mg/dL Normal 1.6-2.4 [facility] ([place]) Comment on above: Performed By: #### C BC, CMP, GFR, DIFF, MORPH #### [place] [address] PBNPon 08-24-2019 Natriuretic peptide B (Bld) [Mass/Vol] 369 pg/mL Normal 0-900 [facility] ([place]) Comment on above: Result Comment: NT-p roBNP results of less than 300 pg/mL effectively rules out acute congestive heart failure with 99% negative predictive value. Performed By: #### C BC, CMP, GFR, DIFF, MORPH #### [place] [address] PHOSon 08-24-2019 Phosphate [Mass/Vol] 2.2 mg/dL Low 2.5-4.5 [facility] ([place]) Comment on above: Performed By: #### C BC, CMP, GFR, DIFF, MORPH #### [address] [address] Phosphate [Mass/Vol] 2.0 mg/dL Low 2.5-4.5 [facility] ([place]) Comment on above: Performed By: #### C BC, CMP, GFR, DIFF, MORPH #### [address] [address] PROon 08-24-2019 INR Coag (PPP) [Relative time] 1.2 {INR} Normal [facility] ([place]) Comment on above: Result Comment: The [employer] (CHEST, 1992, 102:312S-25S) recommended therapeutic range for oral anticoagulant therapy is: LOW RISK: Prophylaxis of venous thrombosis INR: 2.0-3.0 Treatment of pulmonary embolism 2.0-3.0 Prevention of systemic embolism 2.0-3.0 HIGH RISK: Mechanical prosthetic valves 2.5-3.5 Performed By: #### C BC, CMP, GFR, DIFF, MORPH #### [address] [address] PT Coag (PPP) [Time] 13.8 s Normal 9.0-14.6 [facility] ([place]) Comment on above: Result Comment: Effe ctive 11/04/07, Protime results may be affected by some antibiotics (i.e. Ciprofloxacin, Azithromycin, Bactrim) which may potentiate the action of oral anticoagulants, with further increases in Protime/INR. Performed By: #### C BC, CMP, GFR, DIFF, MORPH #### [address] [address] TRIGon 08-24-2019 Triglyceride [Mass/Vol] 71 mg/dL Normal 3-149 A [facility] ([place]) Comment on above: Result Comment: Trig lyceride Reference Interval: Less than 150 Normal 150-199 Borderline high risk 200-499 High risk 500 or higher Very high risk Performed By: #### C BC, CMP, GFR, DIFF, MORPH #### [address] [address] Triglyceride [Mass/Vol] 74 mg/dL Normal 3-149 A [facility] ([place]) Comment on above: Result Comment: Trig lyceride Reference Interval: Less than 150 Normal 150-199 Borderline high risk 200-499 High risk 500 or higher Very high risk Performed By: #### C BC, CMP, GFR, DIFF, MORPH #### [address] [address] TROPIon 08-24-2019 Troponin I.cardiac [Mass/Vol] ng/mL Normal 0.000-0.040 [facility] ([place]) Comment on above: Result Comment: Trop onin I reference ranges (12/28/13): 0.00-0.040 ng/mL Negative and non-diagnostic. >0.040 ng/mL Consistent with cardiac damage, increased clinical risk and possibility of myocardial infarction. Serial measurements, a rise & fall in test results, clinical history, appropriate symptoms and/or ECG changes may help assess possibility of TX. *Other non-acute coronary syndrome conditions such as CHF, myocarditis, pulmonary emboli, sepsis and cardiac surgery could result in myocardial damage and increased troponin levels. Performed By: #### C BC, CMP, GFR, DIFF, MORPH #### [address] [address] .GFRon 08-23-2019 GFR Non- >60 Normal [facility] ([place]) Comment on above: Result Comment: GFR Population mean for , Non- Americans Ages 20-29 = 116 mL/min/1.73 sq.m. Ages 30-39 = 107 mL/min/1.73 sq.m. Ages 40-49 = 99 mL/min/1.73 sq.m. Ages 50-59 = 93 mL/min/1.73 sq.m. Ages 60-69 = 85 mL/min/1.73 sq.m. Ages 70+ = 75 mL/min/1.73 sq.m. Chronic Kidney Disease: Less than 60 mL/min/1.73 square meters End Stage Renal Disease: Less than 15 mL/min/1.73 square meters Performed By: #### C BC, CMP, GFR, DIFF, MORPH #### [address] [address] GFR >60 Normal [facility] ([place]) Comment on above: Result Comment: GFR Population mean for , Non- Americans Ages 20-29 = 116 mL/min/1.73 sq.m. Ages 30-39 = 107 mL/min/1.73 sq.m. Ages 40-49 = 99 mL/min/1.73 sq.m. Ages 50-59 = 93 mL/min/1.73 sq.m. Ages 60-69 = 85 mL/min/1.73 sq.m. Ages 70+ = 75 mL/min/1.73 sq.m. Chronic Kidney Disease: Less than 60 mL/min/1.73 square meters End Stage Renal Disease: Less than 15 mL/min/1.73 square meters Performed By: #### C BC, CMP, GFR, DIFF, MORPH #### [address] [address] .Manual Diffon 08-23-2019 Bands 2.0 % Normal 0.0-5.0 [facility] ([place]) Comment on above: Performed By: #### C BC, CMP, GFR, DIFF, MORPH #### [place] [address] Basophil %, Manual 0.0 % Normal 0.0-2.5 [facility] ([place]) Comment on above: Performed By: #### C BC, CMP, GFR, DIFF, MORPH #### [address] [address] Basophil, Abs Manual 0.00 10 3/mcL Normal 0.00-0.27 A [facility] ([place]) Comment on above: Performed By: #### C BC, CMP, GFR, DIFF, MORPH #### [address] [address] Cells Counted 100 Normal [facility] ([place]) Comment on above: Performed By: #### C BC, CMP, GFR, DIFF, MORPH #### [address] [address] Eosinophil %, Manual 0.0 % Normal 0.0-6.0 [facility] ([place]) Comment on above: Performed By: #### C BC, CMP, GFR, DIFF, MORPH #### [address] [address] Eosinophil, Abs Manual 0.00 10 3/mcL Normal 0.00-0.65 [facility] ([place]) Comment on above: Performed By: #### C BC, CMP, GFR, DIFF, MORPH #### [address] [address] Lymphocyte %, Manual 9.0 % Low 20.0-40.0 [facility] ([place]) Comment on above: Performed By: #### C BC, CMP, GFR, DIFF, MORPH #### [address] [address] Lymphocyte, Abs Manual 2.18 10 3/mcL Normal 0.90-4.32 [facility] ([place]) Comment on above: Performed By: #### C BC, CMP, GFR, DIFF, MORPH #### [address] [address] Monocyte %, Manual 5.0 % Normal 2.0-13.0 [facility] ([place]) Comment on above: Performed By: #### C BC, CMP, GFR, DIFF, MORPH #### [address] [address] Monocyte, Abs Manual 1.21 10 3/mcL Normal 0.09-1.40 A [facility] ([place]) Comment on above: Performed By: #### C BC, CMP, GFR, DIFF, MORPH #### [address] [address] Neutrophil %, Manual 84.0 % High 50.0-75.0 [facility] ([place]) Comment on above: Performed By: #### C BC, CMP, GFR, DIFF, MORPH #### [address] [address] Neutrophil, Abs Manual 18.41 10 3/mcL High 2.25-8.10 [facility] ([place]) Comment on above: Performed By: #### C BC, CMP, GFR, DIFF, MORPH #### [place] [address] .Morphon 08-23-2019 Platelets (Bld) [#/Vol] Normal Normal A [facility] ([place]) Comment on above: Performed By: #### C BC, CMP, GFR, DIFF, MORPH #### [place] [address] RBC morphology finding Nom (Bld) Normal Normal [facility] ([place]) Comment on above: Performed By: #### C BC, CMP, GFR, DIFF, MORPH #### [address] [address] Benji 08-23-2019 Ethanol Level <10.0 Normal [facility] ([place]) Comment on above: Performed By: #### C BC, CMP, GFR, DIFF, MORPH #### [address] [address] APTTon 08-23-2019 aPTT Coag (Bld) [Time] None Normal [facility] ([place]) Comment on above: Performed By: #### A PTT, PRO #### [address] [address] aPTT Coag (Bld) [Time] 23.8 s Low 25.0-35.0 [facility] ([place]) Comment on above: Result Comment: For Heparin anticoagulation therapy, the recommended therapeutic range is: 54-77 seconds (APTT Correlation with Anti-Xa therapeutic range of 0.3-0.7 units/ml). PLEASE REFERENCE THE PHARMACY PROTOCOL FOR DOSING. Performed By: #### A PTT, PRO #### [address] [address] CBCon 08-23-2019 Erythrocyte distribution width (RBC) [Ratio] 14.0 % Normal 11.5-15.5 [facility] ([place]) Comment on above: Performed By: #### C BC, CMP, GFR, DIFF, MORPH #### [address] [address] Hematocrit (Bld) [Volume fraction] 29.7 % Low 34.0-46.0 [facility] ([place]) Comment on above: Performed By: #### C BC, CMP, GFR, DIFF, MORPH #### [address] [address] Hemoglobin (Bld) [Mass/Vol] 10.3 G/dL Low 12.0-16.0 [facility] ([place]) Comment on above: Performed By: #### C BC, CMP, GFR, DIFF, MORPH #### [address] [address] MCH (RBC) [Entitic mass] 33.9 pg High 27.0-33.0 [facility] ([place]) Comment on above: Performed By: #### C BC, CMP, GFR, DIFF, MORPH #### [address] [address] MCHC (RBC) [Mass/Vol] 34.7 G/dL Normal 32.0-36.0 [facility] ([place]) Comment on above: Performed By: #### C BC, CMP, GFR, DIFF, MORPH #### [place] [id number] MCV (RBC) [Entitic vol] 97.7 fL Normal 80.0-99.0 [facility] ([place]) Comment on above: Performed By: #### C BC, CMP, GFR, DIFF, MORPH #### [place] [id number] Platelet mean volume (Bld) [Entitic vol] 8.0 fL Normal 6.6-10.5 [facility] ([place]) Comment on above: Performed By: #### C BC, CMP, GFR, DIFF, MORPH #### [address] [address] Platelets (Bld) [#/Vol] 193 10 3/mcL Normal 150-450 [facility] ([place]) Comment on above: Performed By: #### C BC, CMP, GFR, DIFF, MORPH #### [place] [id number] RBC (Bld) [#/Vol] 3.04 10 6/mcL Low 4.10-5.30 [facility] ([place]) Comment on above: Performed By: #### C BC, CMP, GFR, DIFF, MORPH #### [place] [id number] WBC (Bld) [#/Vol] 24.20 10 3/mcL High 4.50-10.80 [facility] ([place]) Comment on above: Performed By: #### C BC, CMP, GFR, DIFF, MORPH #### [address] [address] CMPon 08-23-2019 Albumin/Globulin [Mass ratio] 0.9 {ratio} Normal 0.9-1.6 [facility] ([place]) Comment on above: Performed By: #### C BC, CMP, GFR, DIFF, MORPH #### [address] [address] ALP [Catalytic activity/Vol] 71 U/L Normal 38-126 [facility] ([place]) Comment on above: Performed By: #### C BC, CMP, GFR, DIFF, MORPH #### [address] [address] Bili Total 1.7 mg/dL High 0.2-1.2 [facility] ([place]) Comment on above: Result Comment: Use of this assay is not recommended for patients undergoing treatment with eltrombopag due to the potential for falsely elevated results. Performed By: #### C BC, CMP, GFR, DIFF, MORPH #### [place] [id number] Creatinine [Mass/Vol] 0.40 mg/dL Low 0.50-1.20 [facility] ([place]) Comment on above: Performed By: #### C BC, CMP, GFR, DIFF, MORPH #### [address] [address] Globulin (S) [Mass/Vol] 3.5 G/dL Normal 1.5-3.8 A [facility] ([place]) Comment on above: Performed By: #### C BC, CMP, GFR, DIFF, MORPH #### [address] [address] Glucose [Mass/Vol] 120 mg/dL High 82-115 [facility] ([place]) Comment on above: Performed By: #### C BC, CMP, GFR, DIFF, MORPH #### [address] [address] Protein [Mass/Vol] 6.8 G/dL Normal 6.0-8.5 [facility] ([place]) Comment on above: Performed By: #### C BC, CMP, GFR, DIFF, MORPH #### [address] [address] Urea nitrogen/Creatinine [Mass ratio] 57.5 ratio High 10.0-22.0 [facility] ([place]) Comment on above: Performed By: #### C BC, CMP, GFR, DIFF, MORPH #### [address] [address] Albumin [Mass/Vol] 3.3 G/dL Normal 3.2-4.8 [facility] ([place]) Comment on above: Performed By: #### C BC, CMP, GFR, DIFF, MORPH #### [address] [address] ALT [Catalytic activity/Vol] 61 U/L High 10-49 [facility] ([place]) Comment on above: Performed By: #### C BC, CMP, GFR, DIFF, MORPH #### [address] [address] AST [Catalytic activity/Vol] 41 U/L High 8-34 [facility] ([place]) Comment on above: Performed By: #### C BC, CMP, GFR, DIFF, MORPH #### [address] [address] Calcium [Mass/Vol] 7.4 mg/dL Low 8.4-10.1 [facility] ([place]) Comment on above: Performed By: #### C BC, CMP, GFR, DIFF, MORPH #### [address] [address] Chloride [Moles/Vol] 94 mmol/L Low 98-110 [facility] ([place]) Comment on above: Performed By: #### C BC, CMP, GFR, DIFF, MORPH #### [address] [address] CO2 [Moles/Vol] 27 mmol/L Normal 22-32 [facility] ([place]) Comment on above: Performed By: #### C BC, CMP, GFR, DIFF, MORPH #### [address] [address] Electrolyte Balance 9.0 mEq/L Normal 4.0-15.0 [facility] ([place]) Comment on above: Performed By: #### C BC, CMP, GFR, DIFF, MORPH #### [address] [address] Potassium [Moles/Vol] 2.9 mmol/L Low 3.5-5.0 [facility] ([place]) Comment on above: Performed By: #### C BC, CMP, GFR, DIFF, MORPH #### [address] [address] Sodium [Moles/Vol] 130 mmol/L Low 136-145 [facility] ([place]) Comment on above: Performed By: #### C BC, CMP, GFR, DIFF, MORPH #### [address] [address] Urea nitrogen [Mass/Vol] 23.0 mg/dL High 8.0-22.0 [facility] ([place]) Comment on above: Performed By: #### C BC, CMP, GFR, DIFF, MORPH #### [address] [address] [address] ABD/PELVIS W/ IV CONTRAST ONLYon 08-23-2019 CT ABD/PELVIS W/ IV CONTRAST ONLY ORIGINAL CT ABD/PELVIS W/ IV CONTRAST ONLY CLINICAL STATEMENT: pain; trauma patient COMPARISON: None TECHNIQUE: Axial images were obtained from the lung bases through the pubic symphysis after the administration of IV contrast. Coronal reformatted images were generated from the axial dataset. This exam was performed according to our departmental dose optimization program, and includes the following measures where applicable: automated exposure control, adjustment of the mAs and/or kVp according to patient size and/or exam, and an iterative reconstruction algorithm. FINDINGS: The included lung bases are dictated separately on the dedicated CT thorax from same day. The heart is normal in size. The liver, spleen, adrenal glands, kidneys, and gallbladder are within normal limits. There is haziness demonstrated throughout the pancreas. The pancreas enhances homogeneously. No peripancreatic fluid collection or evidence of laceration. No portal vein filling defects is demonstrated. The small bowel is nondilated without wall thickening. The large bowel is nondilated. There is mild wall thickening and inflammatory change at the splenic flexure. The appendix is normal. No free intraperitoneal fluid or air is identified. The aorta is normal in caliber. There is no lymphadenopathy. The uterus and adnexa are normal. There is an age-indeterminate compression deformity through the T12 vertebral body. Sclerotic appearance of the lumbar vertebral bodies is noted and likely secondary to degenerative change. There are multilevel degenerative changes of the visualized spine. Degenerative changes are also noted in the hip joints. IMPRESSION: Nonspecific edema surrounding the pancreas without evidence of pancreatic laceration. The edema extends towards the splenic flexure where there is some degree of wall thickening. Findings may reflect pancreatitis, infectious/inflammatory colitis, or trauma. Clinical correlation and lipase levels are recommended. Age-indeterminate T12 compression deformity without significant retropulsion. I have personally reviewed the images of this examination and agree with the resident's findings and interpretation. Interpreted By: Vernon North MD Preliminary Report By: Stanley Padilla MD Electronically Signed By: Vernon North MD Dictated Date: 08/23/2019 6:46:54 PM Prelim Date: 08/23/2019 6:55:21 PM Sign Date: 08/23/2019 7:20:52 PM Ordering Provider:Bernabe Chairez [facility] ([place]) CT THORAX W/ CONTRASTon 05-0 CT THORAX W/ CONTRAST ORIGINAL CT THORAX W/ CONTRAST: Multiplanar coronal, sagittal, axial reconstructions were created and reviewed by the radiologist on a separate workstation. This exam was performed according to our departmental dose optimization program, and includes the following measures where applicable: automated exposure control, adjustment of the mAs and/or kVp according to patient size and/or exam, and an iterative reconstruction algorithm. CLINICAL STATEMENT: pain; trauma patient - suspect aortic rupture, pulmonary trauma COMPARISON: None FINDINGS: The heart is not enlarged. There is no thoracic aortic aneurysm. A RIGHT chest wall port catheter is noted. The esophagus is normal in caliber. No axillary, hilar, or mediastinal lymphadenopathy is identified. There are no pulmonary masses or suspicious nodules. There are trace bilateral pleural effusions, RIGHT greater than LEFT with adjacent airspace disease. Scarring is noted in the LEFT lung apex. The trachea and mainstem bronchi are patent. There are lateral RIGHT 6th through 8th rib fractures there is a posterior 9th rib fracture on the RIGHT.. There are multilevel degenerative changes of the visualized spine. The patient is status post LEFT mastectomy. Visualized upper abdomen demonstrates fatty liver, but otherwise within normal limits. IMPRESSION: Minimally displaced fractures through the RIGHT 6th through 9th ribs. There is no pneumothorax. Trace bilateral pleural effusions adjacent airspace disease, RIGHT greater than LEFT. I have personally reviewed the images of this examination and agree with the resident's findings and interpretation. Interpreted By: Vernon North MD Preliminary Report By: Stanley Padilla MD Electronically Signed By: Vernon North MD Dictated Date: 08/23/2019 6:37:15 PM Prelim Date: 08/23/2019 6:43:56 PM Sign Date: 08/23/2019 7:09:11 PM Ordering Provider:Bernabe Chairez Normal [facility] ([place]) LIPon 08-23-2019 Lipase Level 1226 U/L High 73-393 [facility]) Comment on above: Performed By: #### C BC, CMP, GFR, DIFF, MORPH #### [place] [address] PROon 08-23-2019 INR Coag (PPP) [Relative time] 1.2 {INR} Normal [facility] ([place]) Comment on above: Result Comment: The [employer] (CHEST, 1992, 102:[id number]) recommended therapeutic range for oral anticoagulant therapy is: LOW RISK: Prophylaxis of venous thrombosis INR: 2.0-3.0 Treatment of pulmonary embolism 2.0-3.0 Prevention of systemic embolism 2.0-3.0 HIGH RISK: Mechanical prosthetic valves 2.5-3.5 Performed By: #### C BC, CMP, GFR, DIFF, MORPH #### [address] [address] PT Coag (PPP) [Time] 14.5 s Normal 9.0-14.6 [facility] ([place]) Comment on above: Result Comment: Effe ctive 11/04/07, Protime results may be affected by some antibiotics (i.e. Ciprofloxacin, Azithromycin, Bactrim) which may potentiate the action of oral anticoagulants, with further increase in Protime/INR. Performed By: #### C BC, CMP, GFR, DIFF, MORPH #### [address] [address] RESPIDon 08-23-2019 Adenovirus Not Detected Normal Not Detected [facility] ([place]) Comment on above: Order Comment: Order added by [email or web address] Performed By: #### C BC, CMP, GFR, DIFF, MORPH #### [place] [address] Bordetella Parapertussis Not Detected Normal Not Detected [facility] ([place]) Comment on above: Order Comment: Order added by [email or web address] Performed By: #### C BC, CMP, GFR, DIFF, MORPH #### [place] [address] Bordetella Pertussis Not Detected Normal Not Detected [facility] ([place]) Comment on above: Order Comment: Order added by [email or web address] Performed By: #### C BC, CMP, GFR, DIFF, MORPH #### [place] [address] Chlamydophila pneumoniae Not Detected Normal Not Detected [facility] ([place]) Comment on above: Order Comment: Order added by [email or web address] Performed By: #### C BC, CMP, GFR, DIFF, MORPH #### [place] [address] Coronavirus 229E (Not COVID-19) Not Detected Normal Not Detected [facility] ([place] Comment on above: Order Comment: Order added by [email or web address] Performed By: #### C BC, CMP, GFR, DIFF, MORPH #### [place] [address] Coronavirus HKU1 (Not COVID-19) Not Detected Normal Not Detected [facility] ([place] Comment on above: Order Comment: Order added by [email or web address] Performed By: #### C BC, CMP, GFR, DIFF, MORPH #### [place] [address] Coronavirus NL63 (Not COVID-19) Not Detected Normal Not Detected [facility] ([place] Comment on above: Order Comment: Order added by [email or web address] Performed By: #### C BC, CMP, GFR, DIFF, MORPH #### [place] [address] Coronavirus OC43 (Not COVID-19) Not Detected Normal Not Detected [facility] ([place] Comment on above: Order Comment: Order added by [email or web address] Performed By: #### C BC, CMP, GFR, DIFF, MORPH #### [place] [address] Human Metapneumovirus Not Detected Normal Not Detected [facility] ([place] Comment on above: Order Comment: Order added by [email or web address] Performed By: #### C BC, CMP, GFR, DIFF, MORPH #### [place] [address] Influenza A Not Detected Normal Not Detected [facility] ([place] Comment on above: Order Comment: Order added by [email or web address] Performed By: #### C BC, CMP, GFR, DIFF, MORPH #### [place] [address] Influenza B Not Detected Normal Not Detected [facility] ([place] Comment on above: Order Comment: Order added by [email or web address] Performed By: #### C BC, CMP, GFR, DIFF, MORPH #### [place] [address] Mycoplasma pneumoniae Not Detected Normal Not Detected [facility] ([place] Comment on above: Order Comment: Order added by [email or web address] Performed By: #### C BC, CMP, GFR, DIFF, MORPH #### [place] [address] Parainfluenza 1 Not Detected Normal Not Detected [facility] ([place] Comment on above: Order Comment: Order added by [email or web address] Performed By: #### C BC, CMP, GFR, DIFF, MORPH #### [place] [address] Parainfluenza 2 Not Detected Normal Not Detected [facility] ([place] Comment on above: Order Comment: Order added by [email or web address] Performed By: #### C BC, CMP, GFR, DIFF, MORPH #### [place] [address] Parainfluenza 3 Not Detected Normal Not Detected [facility] ([place] Comment on above: Order Comment: Order added by [email or web address] Performed By: #### C BC, CMP, GFR, DIFF, MORPH #### [place] [address] Parainfluenza 4 Not Detected Normal Not Detected [facility] ([place] Comment on above: Order Comment: Order added by [email or web address] Performed By: #### C BC, CMP, GFR, DIFF, MORPH #### [place] [address] Respiratory Syncytial Virus Not Detected Normal Not Detected [facility] ([place] Comment on above: Order Comment: Order added by [email or web address] Performed By: #### C BC, CMP, GFR, DIFF, MORPH #### [place] [address] Rhinovirus/Enterovirus Not Detected Normal Not Detected [facility] ([place] Comment on above: Order Comment: Order added by [email or web address] Performed By: #### C BC, CMP, GFR, DIFF, MORPH #### [place] [address] RFLUon 08-23-2019 RFLU . MICRO - Microbiology PROCEDURE: Rapid Flu A+B Screen w Confirm if Ind [*1] SOURCE: Nasopharyngeal Swab BODY SITE: COLLECTED DATE/TIME: 08/23/2019 19:51 EDT RECEIVED DATE/TIME: 08/23/2019 20:12 EDT START DATE/TIME: 08/23/2019 20:12 EDT FREE TEXT SOURCE: FINAL REPORTS Final Report [] Verified Date/Time/Personnel: 08/23/2019 20:32 EDT Specimen is negative for the presence of influenza A antigen. . Specimen is negative for the presence of influenza B antigen. . Inadequate specimen collection, improper sample handling and/or low levels of viral shedding may yield a false-negative result. . The optimal specimen type for the Rapid Flu test is a nasopharyngeal wash/aspirate or nasopharyngeal swab. All negative rapid tests for Flu A and Flu B will be confirmed with a Respiratory Id Panel by PCR. . Assay method employs immunofluorescence technology. Performing Locations *1: This test was performed at: [facility], [address] [place] [address], [facility] ([place]) Comment on above: Performed By: #### C BC, CMP, GFR, DIFF, MORPH #### [address] [address] XR CHEST 1 VIEWon 08-23-2019 XR CHEST 1 VIEW ORIGINAL XR CHEST 1 VIEW PORTABLE Upright AP TIME: 6:05 PM CLINICAL STATEMENT: pain; trauma patient COMPARISON: None FINDINGS: The cardiac silhouette is within normal limits. The aorta is tortuous in its course. There is a RIGHT internal jugular approach port catheter with tip terminating in the upper SVC. There is RIGHT basilar atelectatic change. There is no consolidation, vascular congestion, pleural effusion, or pneumothorax shown. There is a fracture through the RIGHT lateral 6th rib. There is a chronic fracture through the RIGHT proximal humerus with malunion and surgical fixation plate in place. The surgical hardware appears intact. IMPRESSION: RIGHT lateral 6th rib fracture without pneumothorax shown. RIGHT basilar atelectasis. Chronic RIGHT humeral fracture with slight malunion. I have personally reviewed the images of this examination and agree with the resident's findings and interpretation. Interpreted By: Vernon North MD Preliminary Report By: Stanley Padilla MD Electronically Signed By: Vernon North MD Dictated Date: 08/23/2019 6:22:33 PM Prelim Date: 08/23/2019 6:25:57 PM Sign Date: 08/23/2019 7:23:50 PM Ordering Provider:Bernabe Chairez [facility] ([place]) XR PELVIS 1 OR 2 VIEWSon XR PELVIS 1 OR 2 VIEWS ORIGINAL XR PELVIS 1 OR 2 VIEWS CLINICAL STATEMENT: pain; trauma patient Comparison: None FINDINGS: There is no acute fracture or dislocation. The pelvic ring is intact. There are moderate RIGHT and mild LEFT degenerative changes in the hip joints. The SI joints and pubic symphysis are intact. IMPRESSION: No acute fracture or subluxation. I have personally reviewed the images of this examination and agree with the resident's findings and interpretation. Interpreted By: Vernon North MD Preliminary Report By: Stanley Padilla MD Electronically Signed By: Vernon North MD Dictated Date: 08/23/2019 6:26:17 PM Prelim Date: 08/23/2019 6:27:22 PM Sign Date: 08/23/2019 7:24:38 PM Ordering Provider:Bernabe Chairez [facility] ([place]) Culture, urine Bacteria identified Cx Nom (U) Staphylococcus hominis hominis [facility] Work Phone: Bacteria identified Cx Nom (U) Escherichia coli [facility] Work Phone: Bacteria identified Cx Nom (U) Enterococcus faecalis [facility] Work Phone: Vital Signs Date Time Vital Sign Value Performing Clinician Facility 07-04-2024 16:37-0400 Diastolic blood pressure 81 mm[Hg] Dr. Erica Richardson DO Work Phone: [facility] 07-04-2024 16:37-0400 Heart rate 77 /min Dr. Erica Richardson DO Work Phone: [facility] 07-04-2024 16:37-0400 Respiratory rate 16 /min Dr. Erica Richardson DO Work Phone: [facility] 07-04-2024 16:37-0400 SaO2% (BldA) [Mass fraction] 96 % Dr. Erica Richardson DO Work Phone: [facility] 07-04-2024 16:37-0400 Systolic blood pressure 167 mm[Hg] Dr. Erica Richardson DO Work Phone: [facility] 07-04-2024 12:57-0400 Body height 167.[address] Erica Richardson DO Work Phone: [facility] 07-04-2024 12:57-0400 Body mass index (BMI) [Ratio] 27.3 kg/m2 Dr. Erica Richardson DO Work Phone: [facility] 07-04-2024 12:57-0400 Body temperature 98 [degF] Dr. Erica Richardson DO Work Phone: [facility] 07-04-2024 12:57-0400 Body weight 76.[address] Erica Richardson DO Work Phone: [facility] 08-20-2023 17:53-0400 Body temperature 98 [degF] Dr. Erica Richardson Work Phone: [facility] 08-20-2023 17:53-0400 Diastolic blood pressure 80 mm[Hg] Dr. Erica Richardson Work Phone: [facility] 08-20-2023 17:53-0400 Heart rate 80 /min Dr. Erica Richardson Work Phone: [facility] 08-20-2023 17:53-0400 Respiratory rate 16 /min Dr. Erica Richardson Work Phone: [facility] 08-20-2023 17:53-0400 SaO2% (BldA) [Mass fraction] 97 % Dr. Erica Richardson Work Phone: [facility] 08-20-2023 17:53-0400 Systolic blood pressure 158 mm[Hg] Dr. Erica Richardson Work Phone: [facility] 08-20-2023 12:24-0400 Body height 165.[address] Erica Richardson Work Phone: [facility] 08-20-2023 12:24-0400 Body mass index (BMI) [Ratio] 27.2 kg/m2 Dr. Erica Richardson Work Phone: [facility] 08-20-2023 12:24-0400 Body weight 74.[address] Erica Richardson Work Phone: [facility] 05-21-2023 11:05-0500 Body temperature 98.4 [degF] Dr. Erica Richardson Work Phone: [facility] 05-21-2023 11:05-0500 Diastolic blood pressure 60 mm[Hg] Dr. Erica Richardson Work Phone: [facility] 05-21-2023 11:05-0500 Heart rate 61 /min Dr. Erica Richardson Work Phone: [facility] 05-21-2023 11:05-0500 Respiratory rate 18 /min Dr. Erica Richardson Work Phone: [facility] 05-21-2023 11:05-0500 SaO2% (BldA) [Mass fraction] 94 % Dr. Erica Richardson Work Phone: [facility] 05-21-2023 11:05-0500 Systolic blood pressure 125 mm[Hg] Dr. Erica Richardson Work Phone: [facility] 05-21-2023 06:00-0500 Body mass index (BMI) [Ratio] 26.6 kg/m2 Dr. Erica Richardson Work Phone: [facility] 05-21-2023 06:00-0500 Body weight 74.[address] Erica Richardson Work Phone: [facility] 05-19-2023 09:16-0500 Inhaled oxygen concentration 2 % Dr. Erica Richardson Work Phone: [facility] 05-19-2023 08:00-0500 Inhaled oxygen flow rate 2 L/min Dr. Erica Richardson Work Phone: [facility] 05-19-2023 03:16-0500 Body height 167.[address] Erica Richardson Work Phone: [facility] 05-19-2023 02:23-0500 Body temperature 98.7 [degF] Dr. Erica Richardson Work Phone: [facility] 05-19-2023 02:23-0500 Diastolic blood pressure 57 mm[Hg] Dr. Erica Richardson Work Phone: [facility] 05-19-2023 02:23-0500 Heart rate 87 /min Dr. Erica Richardson Work Phone: [facility] 05-19-2023 02:23-0500 Respiratory rate 16 /min Dr. Erica Richardson Work Phone: [facility] 05-19-2023 02:23-0500 SaO2% (BldA) [Mass fraction] 95 % Dr. Erica Richardson Work Phone: [facility] 05-19-2023 02:23-0500 Systolic blood pressure 99 mm[Hg] Dr. Erica Richardson Work Phone: [facility] 05-19-2023 01:17-0500 Inhaled oxygen flow rate 3 L/min Dr. Erica Richardson Work Phone: [facility] 05-18-2023 23:28-0500 Body height 167.[address] Erica Richardson Work Phone: [facility] 05-18-2023 23:28-0500 Body mass index (BMI) [Ratio] 25.9 kg/m2 Dr. Erica Richardson Work Phone: [facility] 05-18-2023 23:28-0500 Body weight [address] Erica Richardson Work Phone: [facility] 11-23-2022 13:00-0400 Body temperature 97.8 [degF] Dr. Erica Richardson Work Phone: [facility] 11-23-2022 13:00-0400 Diastolic blood pressure 70 mm[Hg] Dr. Erica Richardson Work Phone: [facility] 11-23-2022 13:00-0400 Heart rate 98 /min Dr. Erica Richardson Work Phone: [facility] 11-23-2022 13:00-0400 Respiratory rate 16 /min Dr. Erica Richardson Work Phone: [facility] 11-23-2022 13:00-0400 SaO2% (BldA) [Mass fraction] 94 % Dr. Erica Richardson Work Phone: [facility] 11-23-2022 13:00-0400 Systolic blood pressure 139 mm[Hg] Dr. Erica Richardson Work Phone: [facility] 11-23-2022 06:51-0400 Inhaled oxygen flow rate 2 L/min Dr. Erica Richardson Work Phone: [facility] 11-22-2022 18:25-0400 Body height 167.[address] Erica Richardson Work Phone: [facility] 11-22-2022 18:25-0400 Body mass index (BMI) [Ratio] 24.2 kg/m2 Dr. Erica Richardson Work Phone: [facility] 11-22-2022 18:25-0400 Body weight 68.[address] Erica Richardson Work Phone: [facility] 11-22-2022 17:49-0400 Body temperature 98 [degF] [facility] 11-22-2022 17:49-0400 Diastolic blood pressure 79 mm[Hg] [facility] 11-22-2022 17:49-0400 Heart rate 72 /min [facility] 11-22-2022 17:49-0400 Respiratory rate 18 /min [facility] 11-22-2022 17:49-0400 SaO2% (BldA) [Mass fraction] 93 % [facility] 11-22-2022 17:49-0400 Systolic blood pressure 151 mm[Hg] [facility] 11-22-2022 12:42-0400 Body height 167.64 cm [facility] 11-22-2022 12:42-0400 Body mass index (BMI) [Ratio] 24.2 kg/m2 [facility] 11-22-2022 12:42-0400 Body weight 68.03 kg [facility] 11-22-2022 11:47-0400 Body temperature 99.61 [degF] Eliel Limy[facility] [employer] Work Phone: [facility] 11-22-2022 11:47-0400 Body weight 68.04 kg [facility] [employer] Work Phone: [facility] 11-22-2022 11:47-0400 Diastolic blood pressure 64 mm[Hg] Eliel Limyale [facility] [employer] MEMBER.CEMETERY LABORER Work Phone: [facility] 11-22-2022 11:47-0400 Heart rate 85 /min Eliel [facility] GROUND OPERATIONS CREW MEMBER.CEMETERY LABORER Work Phone: [facility] 11-22-2022 11:47-0400 Respiratory rate 18 /min Eliel [facility] GROUND OPERATIONS CREW MEMBER.CEMETERY LABORER Work Phone: [facility] 11-22-2022 11:47-0400 SaO2% (BldA) [Mass fraction] 93 % Elieljesus [facility] GROUND OPERATIONS CREW MEMBER.CEMETERY LABORER Work Phone: [facility] 11-22-2022 11:47-0400 Systolic blood pressure 110 mm[Hg] Eliel [facility] GROUND OPERATIONS CREW MEMBER.CEMETERY LABORER Work Phone: [facility] 07-02-2022 21:05-0400 Diastolic blood pressure 80 mm[Hg] Dr. Erica Richardson Work Phone: [facility] 07-02-2022 21:05-0400 Heart rate 79 /min Dr. Erica Richardson Work Phone: [facility] 07-02-2022 21:05-0400 Respiratory rate 16 /min Dr. Erica Richardson Work Phone: [facility] 07-02-2022 21:05-0400 SaO2% (BldA) [Mass fraction] 97 % Dr. Erica Richardson Work Phone: [facility] 07-02-2022 21:05-0400 Systolic blood pressure 130 mm[Hg] Dr. Erica Richardson Work Phone: [facility] 07-02-2022 16:14-0400 Body height 167.[address] Erica Richardson Work Phone: [facility] 07-02-2022 16:14-0400 Body mass index (BMI) [Ratio] 21.7 kg/m2 Dr. Erica Richardson Work Phone: [facility] 07-02-2022 16:14-0400 Body temperature 97.3 [degF] Dr. Erica Richardson Work Phone: [facility] 07-02-2022 16:14-0400 Body weight 61.[address] Erica Richardson Work Phone: [facility] 03-09-2022 08:51-0500 Body height 167.[address] Erica Richardson Work Phone: [facility] 01-10-2022 13:39-0400 Diastolic blood pressure 81 mm[Hg] Dr. Erica Richardson Work Phone: [facility] Work Phone: 01-10-2022 13:39-0400 Heart rate 83 /min Dr. Erica Richardson Work Phone: [facility] Work Phone: 01-10-2022 13:39-0400 Respiratory rate 19 /min Dr. Erica Richardson Work Phone: [facility] Work Phone: 01-10-2022 13:39-0400 SaO2% (BldA) [Mass fraction] 95 % Dr. Erica Richardson Work Phone: [facility] Work Phone: 01-10-2022 13:39-0400 Systolic blood pressure 149 mm[Hg] Dr. Erica Richardson Work Phone: [facility] Work Phone: 01-10-2022 11:44-0400 Body height 167.[address] Erica Richardson Work Phone: [facility] Work Phone: 01-10-2022 11:44-0400 Body mass index (BMI) [Ratio] 22.7 kg/m2 Dr. Erica Richardson Work Phone: [facility] Work Phone: 01-10-2022 11:44-0400 Body temperature 98.1 [degF] Dr. Erica Richardson Work Phone: [facility] Work Phone: 01-10-2022 11:44-0400 Body weight 63.[address] Erica Richardson Work Phone: [facility] Work Phone: 01-09-2022 13:26-0400 Body height 167.6 cm All Tsang MD Work Phone: [facility] 01-09-2022 13:26-0400 Body weight 56.7 kg All Tsang MD Work Phone: [facility] 01-09-2022 13:26-0400 Diastolic blood pressure 64 mm[Hg] All Tsang MD Work Phone: [facility] 01-09-2022 13:26-0400 Heart rate 66 /min All Tsang MD Work Phone: [facility] 01-09-2022 13:26-0400 SaO2% (BldA) [Mass fraction] 97 % All Tsang MD Work Phone: [facility] 01-09-2022 13:26-0400 Systolic blood pressure 110 mm[Hg] All Tsang MD Work Phone: [facility] 11-02-2021 13:06-0400 Body height 167.6 cm Acute 359 Work Phone: [facility] 11-02-2021 13:06-0400 Body weight 63.96 kg Acute 359 Work Phone: [facility] 11-02-2021 13:06-0400 Diastolic blood pressure 74 mm[Hg] Acute 359 Work Phone: [facility] 11-02-2021 13:06-0400 Heart rate 86 /min Acute 359 Work Phone: [facility] 11-02-2021 13:06-0400 Respiratory rate 20 /min Acute 359 Work Phone: [facility] 11-02-2021 13:06-0400 SaO2% (BldA) [Mass fraction] 95 % Acute 359 Work Phone: [facility] 11-02-2021 13:06-0400 Systolic blood pressure 112 mm[Hg] Acute 359 Work Phone: [facility] 10-07-2021 01:00-0400 Diastolic blood pressure 81 mm[Hg] Dr. Erica Richardson Work Phone: [facility] Work Phone: 10-07-2021 01:00-0400 Heart rate 85 /min Dr. Erica Richardson Work Phone: [facility] Work Phone: 10-07-2021 01:00-0400 Inhaled oxygen flow rate 2 L/min Dr. Erica Richardson Work Phone: [facility] Work Phone: 10-07-2021 01:00-0400 Respiratory rate 14 /min Dr. Erica Richardson Work Phone: [facility] Work Phone: 10-07-2021 01:00-0400 SaO2% (BldA) [Mass fraction] 100 % Dr. Erica Richardson Work Phone: [facility] Work Phone: 10-07-2021 01:00-0400 Systolic blood pressure 138 mm[Hg] Dr. Erica Richardson Work Phone: [facility] Work Phone: 10-06-2021 21:19-0400 Body height 167.[address] Erica Richardson Work Phone: [facility] Work Phone: 10-06-2021 21:19-0400 Body mass index (BMI) [Ratio] 20.9 kg/m2 Dr. Erica Richardson Work Phone: [facility] Work Phone: 10-06-2021 21:19-0400 Body temperature 96.9 [degF] Dr. Erica Richardson Work Phone: [facility] Work Phone: 10-06-2021 21:19-0400 Body weight 58.[address] Erica Richardson Work Phone: [facility] Work Phone: 08-07-2021 10:54-0400 Body mass index (BMI) [Ratio] 22.9 kg/m2 Dr. Erica Rihcardson Work Phone: [facility] Work Phone: 08-07-2021 10:54-0400 Body temperature 97.3 [degF] Dr. Erica Richardson Work Phone: [facility] Work Phone: 08-07-2021 10:54-0400 Body weight 62.[address] Erica Richardson Work Phone: [facility] Work Phone: 08-07-2021 10:54-0400 Diastolic blood pressure 76 mm[Hg] Dr. Erica Richardson Work Phone: [facility] Work Phone: 08-07-2021 10:54-0400 Heart rate 91 /min Dr. Erica Richardson Work Phone: [facility] Work Phone: 08-07-2021 10:54-0400 Respiratory rate 18 /min Dr. Erica Richardson Work Phone: [facility] Work Phone: 08-07-2021 10:54-0400 SaO2% (BldA) [Mass fraction] 97 % Dr. Erica Richardson Work Phone: [facility] Work Phone: 08-07-2021 10:54-0400 Systolic blood pressure 120 mm[Hg] Dr. Erica Richardson Work Phone: [facility] Work Phone: 08-07-2021 10:54-0400 Body height 165.[address] Erica Richardson Work Phone: [facility] Work Phone: 08-07-2021 10:54-0400 Body mass index (BMI) [Ratio] 22.9 kg/m2 Dr. Erica Richardson Work Phone: [facility] Work Phone: 08-07-2021 10:54-0400 Body temperature 97.3 [degF] Dr. Erica Richardson Work Phone: [facility] Work Phone: 08-07-2021 10:54-0400 Body weight 62.[address] Erica Richardson Work Phone: [facility] Work Phone: 08-07-2021 10:54-0400 Diastolic blood pressure 76 mm[Hg] Dr. rEica Richardson Work Phone: [facility] Work Phone: 08-07-2021 10:54-0400 Heart rate 91 /min Dr. Erica Richardson Work Phone: [facility] Work Phone: 08-07-2021 10:54-0400 Respiratory rate 18 /min Dr. Erica Richardson Work Phone: [facility] Work Phone: 08-07-2021 10:54-0400 SaO2% (BldA) [Mass fraction] 97 % Dr. Erica Richardson Work Phone: [facility] Work Phone: 08-07-2021 10:54-0400 Systolic blood pressure 120 mm[Hg] Dr. Erica Richardson Work Phone: [facility] Work Phone: 07-12-2021 11:59-0400 Body temperature 100.29 [degF] Nicho Johnson MD Work Phone: [facility] 07-12-2021 11:59-0400 Body weight 60.6 kg Nicho Johnson MD Work Phone: [facility] 07-12-2021 11:59-0400 Diastolic blood pressure 92 mm[Hg] Nicho Johnson MD Work Phone: [facility] 07-12-2021 11:59-0400 Heart rate 97 /min Nicho Johnson MD Work Phone: [facility] 07-12-2021 11:59-0400 Respiratory rate 21 /min Nicho Johnson MD Work Phone: [facility] 07-12-2021 11:59-0400 SaO2% (BldA) [Mass fraction] 98 % Nicho Johnson MD Work Phone: [facility] 07-12-2021 11:59-0400 Systolic blood pressure 152 mm[Hg] Nicho Johnson MD Work Phone: [facility] 06-11-2021 15:56-0500 Diastolic blood pressure 83 mm[Hg] Dr. Erica Richardson Work Phone: [facility] Work Phone: 06-11-2021 15:56-0500 Heart rate 89 /min Dr. Erica Richardson Work Phone: [facility] Work Phone: 06-11-2021 15:56-0500 Respiratory rate 16 /min Dr. Erica Richardson Work Phone: [facility] Work Phone: 06-11-2021 15:56-0500 SaO2% (BldA) [Mass fraction] 97 % Dr. Erica Richardson Work Phone: [facility] Work Phone: 06-11-2021 15:56-0500 Systolic blood pressure 149 mm[Hg] Dr. Erica Richardson Work Phone: [facility] Work Phone: 06-11-2021 14:56-0500 Diastolic blood pressure 83 mm[Hg] Dr. Erica Richardson Work Phone: [facility] Work Phone: 06-11-2021 14:56-0500 Heart rate 89 /min Dr. Erica Richardson Work Phone: [facility] Work Phone: 06-11-2021 14:56-0500 Respiratory rate 16 /min Dr. Erica Richardson Work Phone: [facility] Work Phone: 06-11-2021 14:56-0500 SaO2% (BldA) [Mass fraction] 97 % Dr. Erica Richardson Work Phone: [facility] Work Phone: 06-11-2021 14:56-0500 Systolic blood pressure 149 mm[Hg] Dr. Erica Richardson Work Phone: [facility] Work Phone: 06-11-2021 11:01-0500 Body mass index (BMI) [Ratio] 23.5 kg/m2 Dr. Erica Richardson Work Phone: [facility] Work Phone: 06-11-2021 11:01-0500 Body temperature 98.3 [degF] Dr. Erica Richardson Work Phone: [facility] Work Phone: 06-11-2021 11:01-0500 Body weight 62.[address] Erica Richardson Work Phone: [facility] Work Phone: 06-11-2021 10:01-0500 Body mass index (BMI) [Ratio] 23.5 kg/m2 Dr. Erica Richardson Work Phone: [facility] Work Phone: 06-11-2021 10:01-0500 Body temperature 98.3 [degF] Dr. Erica Richardson Work Phone: [facility] Work Phone: 06-11-2021 10:01-0500 Body weight 62.[address] Erica Richardson Work Phone: [facility] Work Phone: 05-21-2021 13:39-0500 Body mass index (BMI) [Ratio] 23.7 kg/m2 Dr. Erica Richardson Work Phone: [facility] Work Phone: 05-21-2021 13:39-0500 Body temperature 98 [degF] Dr. Erica Richardson Work Phone: [facility] Work Phone: 05-21-2021 13:39-0500 Body weight 66.[address] Erica Richardson Work Phone: [facility] Work Phone: 05-21-2021 13:39-0500 Diastolic blood pressure 69 mm[Hg] Dr. Erica Richardson Work Phone: [facility] Work Phone: 05-21-2021 13:39-0500 Heart rate 87 /min Dr. Erica Richardson Work Phone: [facility] Work Phone: 05-21-2021 13:39-0500 Respiratory rate 18 /min Dr. Erica Richardson Work Phone: [facility] Work Phone: 05-21-2021 13:39-0500 SaO2% (BldA) [Mass fraction] 100 % Dr. Erica Richadrson Work Phone: [facility] Work Phone: 05-21-2021 13:39-0500 Systolic blood pressure 150 mm[Hg] Dr. Erica Richardson Work Phone: [facility] Work Phone: 04-17-2020 11:00-0500 BP Diastolic 91 mm[Hg] [place] 04-17-2020 11:00-0500 BP Systolic 158 mm[Hg] [place] 04-17-2020 11:00-0500 Pulse (Heart Rate) 87 /min [place], [place] 04-17-2020 11:00-0500 Pulse Oximetry 95 % [place] 04-17-2020 11:00-0500 Respiratory Rate 18 /min [place], [place] 04-17-2020 08:00-0500 Body Temperature 98.4 [degF] [place] Encounters Encounter Date Encounter Type Care Provider Facility Start: 09-11-2024 End: 09-11-[address] Erica Richardson DO Work Phone: [facility] Work Phone: Start: 09-11-2024 End: 09-11-[address] Erica Richardson DO -Laboratory [place] Work Phone: Start: 09-11-2024 End: 09-11-2024 ambulatory Erica Debra Facility:[facility] Start: 08-21-2024 End: 08-21-[address] Erica Richardson DO Work Phone: [facility] Work Phone: Start: 08-21-2024 End: 08-21-[address] Erica Richardson DO -Home Health Lab Start: 08-21-2024 End: 08-21-2024 [facility] Start: 08-05-2024 End: 08-05-[address] Erica Richardson DO -Laboratory, Specimen Work Phone: Start: 08-05-2024 End: 08-05-2024 [facility] Start: 07-04-2024 End: 07-04-2024 Emergency department patient visit Dr. Erica Richardson DO Work Phone: -Emergency Department Work Phone: Start: 06-04-2024 End: 06-04-[address] Erica Richardson DO -Radiology, [place] Work Phone: Start: 06-04-2024 End: 06-04-2024 ambulatory Erica [facility] Facility:[facility] Start: 05-27-2024 End: 05-27-[address] Erica Richardson DO -Laboratory, [facility] Start: 05-27-2024 End: 05-27-2024 ambulatory Erica [facility]tie Facility:[facility] Start: 04-24-2024 End: 04-24-[address] Erica [facility], Specimen Work Phone: Start: 04-24-2024 End: 04-24-2024 ambulatory Erica [facility] Facility:[facility] Start: 03-02-2024 End: 03-02-2024 [facility] Start: 12-18-2023 End: 12-18-2023 Emergency department patient visit Jorge Cardona Facility:[facility] Start: 12-12-2023 End: 12-12-2023 ambulatory Erica [place] Facility:[facility] Start: 11-04-2023 End: 11-04-2023 ambulatory [facility] Work Phone: Hematology/Oncology Comment on above: History of breast ca ncer (Primary Dx) Start: 10-10-2023 End: 10-10-2023 ambulatory Erica Richardson Facility:[facility] Start: 08-20-2023 End: 08-20-2023 Emergency department patient visit Dr. Erica Richardson Work Phone: [facility]-Emergency Department Work Phone: Start: 08-05-2023 End: 08-05-2023 ambulatory [facility] Work Phone: Hematology/Oncology Comment on above: History of breast ca ncer (Primary Dx) Start: 05-21-2023 Non-patient / Non-visit Dr. Anny Richardson Work Phone: [facility] Work Phone: Start: 05-20-2023 Non-patient / Non-visit Dr. Anny Richardson Work Phone: [facility] Work Phone: Start: 05-19-2023 End: 05-21-2023 Evaluation and management of inpatient Dr. Erica Richardson Work Phone: [facility] 3 Work Phone: Start: 05-19-2023 Non-patient / Non-visit Dr. Anny Richardson Work Phone: [facility] Work Phone: Start: 05-09-2023 End: 05-09-2023 ambulatory ERICA RICHARDSON Facility:[facility] Start: 04-02-2023 End: 04-02-2023 ambulatory ERICA RICHARDSON Facility:[facility] Start: 11-23-2022 Telephone encounter Wu rico APRN.CEMETERY LABORER Work Phone: [facility] Comment on above: Results Start: 11-22-2022 Non-patient / Non-visit Dr. Anny Richardson Work Phone: [facility] Work Phone: Start: 11-22-2022 End: 11-23-2022 Evaluation and management of inpatient [facility] Work Phone: Start: 11-22-2022 End: 11-23-[address] Erica Richardson Work Phone: [facility] Work Phone: Start: 11-22-2022 End: 11-22-2022 Subsequent hospital visit by physician [facility] Work Phone: Radiology Comment on above: Acute cough [R05.1] Start: 11-22-2022 End: 11-22-2022 ambulatory ERICA RICHARDSON Facility:[facility] Start: 11-22-2022 End: 11-22-2022 Patient encounter procedure Eliel Blount APRN.CEMETERY LABORER Work Phone: [facility] Comment on above: Acute cough (Primary Dx); SOB (shortness of breath); Suspected COVID-19 virus infection Start: 11-14-2022 End: 11-14-2022 [facility] Start: 09-13-2022 End: 09-13-[address] Erica Richardson Work Phone: [facility] Work Phone: Start: 09-13-2022 End: 09-13-[address] 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 Erica Richardson Work Phone: [facility]Emer[facility] Start: 06-26-2022 End: 06-26-[address] Erica Richardson Work Phone: [facility] Work Phone: Start: 06-26-2022 End: 06-26-[address] Erica Richardson Work Phone: [facility] Start: 06-15-2022 End: 06-15-2022 ambulatory Lab[facility] Work Phone: Hematology/Oncology Comment on above: Malignant neoplasm o f left breast in female, estrogen receptor positive, unspecified site of breast (HCC) (Primary Dx) Start: 06-07-2022 Non-patient / Non-visit Dr. Anny Richardson Work Phone: [facility] Start: 06-07-2022 End: 06-07-[address] Erica Richardson Work Phone: [facility] Work Phone: Start: 06-07-2022 End: 06-07-[address] 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 Erica Richardson Work Phone: [facility] Work Phone: Start: 03-06-2022 End: 03-06-[address] Erica Richardson Work Phone: [facility] Start: 03-06-[address] Erica mejia Work Phone: [facility] Start: 03-03-2022 End: 03-03-[address] Erica Richardson Work Phone: [facility] Start: 02-27-2022 End: 02-27-[address] Erica Richardson Work Phone: [facility] Work Phone: Start: 02-27-2022 End: 02-27-[address] Erica Richardson Work Phone: [facility] Start: 02-27-[address] Erica mejia Work Phone: [facility] Start: 02-20-2022 End: 02-20-[address] Erica Richardson Work Phone: [facility] Work Phone: Start: 02-20-2022 End: 02-20-[address] Erica Richardson Work Phone: [facility] Start: 02-20-2022 Registered Referred [facility] Start: 02-13-2022 End: 02-13-2022 ambulatory [facility] Work Phone: Start: 02-13-2022 End: 02-13-2022 Departed Referred [facility] Start: 02-13-[address] [facility] Start: 02-06-2022 End: 02-06-[address] Erica Richardson Work Phone: [facility] Work Phone: Start: 02-06-2022 End: 02-06-[address] Erica Richardson Work Phone: [facility] Start: 02-06-[address] [facility] Start: 01-30-2022 End: 01-30-[address] Erica Richardson Work Phone: [facility] Work Phone: Start: 01-30-2022 End: 01-30-[address] Erica Richardson Work Phone: [facility] Start: 01-30-[address] [facility] Start: 01-22-2022 End: 01-22-[address] Erica Richardson Work Phone: [facility] Work Phone: Start: 01-22-2022 End: 01-22-[address] Erica Richardson Work Phone: [facility] Start: 01-22-[address] Erica mejia Work Phone: [facility] Start: 01-16-2022 End: 01-16-[address] Erica Richardson Work Phone: [facility] Work Phone: Start: 01-16-2022 End: 01-16-[address] Erica Richardson Work Phone: [facility] Start: 01-16-[address] Erica mejia Work Phone: [facility] Start: 01-10-2022 End: 01-10-2022 Emergency department patient visit Dr. Erica Richardson Work Phone: [facility] Start: 01-09-2022 End: 01-09-2022 Patient encounter procedure All Tsang MD Work Phone: [facility] Comment on above: SDH (subdural hemato ma) (Primary Dx); Cerebral hemorrhage (HCC) Start: 01-09-2022 End: 01-09-2022 ambulatory ERICA RICHARDSON Facility:[facility] Start: 01-09-2022 End: 01-09-[address] Erica Richardson Work Phone: [facility] Start: 01-09-[address] Erica mejia Work Phone: [facility] Start: 01-04-2022 End: 01-04-2022 ambulatory Lab/[facility] Work Phone: Hematology/Oncology Comment on above: Malignant neoplasm o f left breast in female, estrogen receptor positive, unspecified site of breast (HCC) (Primary Dx) Start: 01-04-2022 End: 01-04-2022 Subsequent hospital visit by physician [facility] (I-Stat/1.5t) Work Phone: Radiology Comment on above: SDH (subdural hemato ma) (HCC) [S06.5X9A] Start: 01-03-2022 Telephone encounter Avni stephenson DO Work Phone: Hematology/Oncology Comment on above: Appointment Start: 01-02-2022 End: 01-02-[address] Erica Richardson Work Phone: [facility] Work Phone: Start: 01-02-2022 End: 01-02-[address] Erica Richardson Work Phone: [facility] Start: 01-02-[address] Erica mejia Work Phone: [facility] Start: 12-26-2021 End: 12-26-[address] Erica Richardson Work Phone: [facility] Work Phone: Start: 12-26-2021 End: 12-26-[address] Erica Richardson Work Phone: [facility] Start: 12-26-[address] Erica mejia Work Phone: [facility] Start: 12-20-2021 End: 12-20-[address] Erica Richardson Work Phone: [facility] Work Phone: Start: 12-20-2021 End: 12-20-[address] Erica Richardson Work Phone: [facility] Start: 12-20-[address] Erica mejia Work Phone: [facility] Start: 12-18-2021 End: 12-18-[address] Erica Richardson Work Phone: [facility] Work Phone: Start: 12-18-2021 End: 12-18-[address] Erica Richardson Work Phone: [facility] Start: 12-18-[address] Erica mejia Work Phone: [facility] Start: 12-12-2021 End: 12-12-[address] Erica Richardson Work Phone: [facility] Work Phone: Start: 12-12-2021 End: 12-12-[address] Erica Richardson Work Phone: [facility] Start: 12-12-[address] Erica mejia Work Phone: [facility] Start: 12-05-2021 End: 12-05-[address] Erica Richardson Work Phone: [facility] Work Phone: Start: 12-05-2021 End: 12-05-[address] Erica Richardson Work Phone: [facility] Start: 12-05-[address] Erica mejia Work Phone: [facility] Start: 12-03-2021 End: 12-03-[address] Erica Richardson Work Phone: [facility] Start: 12-01-2021 End: 12-01-[address] Erica Richardson Work Phone: [facility] Work Phone: Start: 12-01-2021 End: 12-01-[address] Erica Richardson Work Phone: [facility] Start: 12-01-[address] Erica mejia Work Phone: [facility] Start: 11-28-2021 End: 11-28-[address] Erica Richardson Work Phone: [facility] Work Phone: Start: 11-28-2021 End: 11-28-[address] Erica Richardson Work Phone: [facility] Start: 11-28-[address] Erica mejia Work Phone: [facility] Start: 11-21-2021 End: 11-21-[address] Erica Richardson Work Phone: [facility] Work Phone: Start: 11-21-2021 End: 11-21-[address] Erica Richardson Work Phone: [facility] Start: 11-21-[address] Erica mejia Work Phone: [facility] Start: 11-14-2021 End: 11-14-[address] Erica Richardson Work Phone: [facility] Start: 11-14-[address] Erica mejia Work Phone: [facility] Start: 11-09-2021 End: 11-09-[address] Erica Richardson Work Phone: [facility] Start: 11-09-[address] Erica mejia Work Phone: [facility] Start: 11-07-2021 End: 11-07-[address] Erica Richardson Work Phone: [facility] Start: 11-03-2021 End: 11-03-2021 ambulatory ERICA A MALYS Facility:[facility] Start: 11-02-2021 End: 11-02-2021 ambulatory ERICA A MALYS Facility:[facility] Start: 11-02-2021 End: 11-02-2021 Nursing evaluation of patient and report [facility] 359 Work Phone: [facility] SURGERY DEPARTMENT Comment on above: Closed fracture of m ultiple ribs with flail chest with routine healing, subsequent encounter (Primary Dx) Start: 11-02-2021 End: 11-02-2021 Subsequent hospital visit by physician Xr [facility] Comment on above: Closed fracture of m ultiple ribs of left side, initial encounter [S22.42XA] Start: 10-31-2021 End: 10-31-[address] Erica Richardson Work Phone: [facility] Start: 10-31-[address] Erica mejia Work Phone: [facility] Start: 10-30-2021 End: 10-30-2021 Subsequent hospital visit by physician [facility] ([facility]) Work Phone: Cat Scan Comment on above: SDH (subdural hemato ma) (HCC) [S06.5X9A] Start: 10-27-2021 End: 10-27-[address] Erica Richardson Work Phone: [facility] Start: 10-25-2021 End: 10-25-[address] Erica Richardson Work Phone: [facility] Start: 10-24-2021 End: 10-24-[address] Erica Richardson Work Phone: [facility] Start: 10-24-[address] Erica mejia Work Phone: [facility] Start: 10-20-2021 Telephone encounter Sherice espino APRN.CNP Work Phone: [facility] Comment on above: Appointment Start: 10-12-2021 Telephone encounter Eugene Santos MD Work Phone: [facility] SURGERY DEPARTMENT Comment on above: Patient Update Start: 10-11-2021 Orders Only Yolie braswell PA-C Work Phone: [place] [facility] Comment on above: SDH (subdural hemato ma) (HCC) (Primary Dx) Start: 10-07-2021 End: 10-17-2021 Evaluation and management of inpatient ERICA Shannon LIBORIOHATTIE Facility:[facility] Start: 10-06-2021 End: 10-07-2021 Emergency department patient visit Dr. Erica Richardson Work Phone: [facility]Emergency Department Start: 10-03-2021 End: 10-03-2021 ambulatory Lab/[facility] Work Phone: Hematology/Oncology Comment on above: Malignant neoplasm o f left breast in female, estrogen receptor positive, unspecified site of breast (HCC) (Primary Dx) Start: 08-29-2021 End: 08-29-2021 ambulatory Lab/[facility] Work Phone: Hematology/Oncology Comment on above: Malignant neoplasm o f left breast in female, estrogen receptor positive, unspecified site of breast (HCC) (Primary Dx) Start: 08-10-2021 End: 08-10-[address] Erica Richardson Work Phone: [facility]-Outpatient Bone Densitometry Start: 08-07-2021 End: 08-07-[address] Erica Richardson Work Phone: [facility] Endocrinology Start: 08-01-2021 End: 08-01-2021 ambulatory Lab/[place] [facility] Work Phone: Hematology/Oncology Comment on above: Malignant neoplasm o f left breast in female, estrogen receptor positive, unspecified site of breast (HCC) (Primary Dx) Start: 07-28-2021 End: 07-28-[address] Erica Richardson Work Phone: [facility]-Medical Out Start: 07-12-2021 End: 07-12-2021 Patient encounter procedure Nicho Johnson MD Work Phone: [facility] Comment on above: Otalgia, right (Prim neel Dx); Vertigo; URI, acute Start: 06-11-2021 End: 06-11-2021 Emergency department patient visit Dr. Erica Richardson Work Phone: [facility]Emergency Department Start: 05-21-2021 End: 05-21-2021 Emergency department patient visit Dr. Erica Richardson Work Phone: [facility] Start: 03-17-2021 End: 03-17-2021 Subsequent hospital visit by physician Xr [facility] Work Phone: Radiology Comment on above: Injury of left upper arm, subsequent encounter [S49.92XD] Start: 04-16-2020 End: 04-17-2020 Evaluation and management of inpatient Solomon Tenorio Work Phone: [facility] T2 Comment on above: Traumatic subdural h ematoma with loss of consciousness of 30 minutes or less, subsequent encounter (Primary Dx) Start: 06-13-2018 ambulatory UNKNOWN PROVIDER [facility] Procedures Date Procedure Procedure Detail Performing Clinician Start: 09-11-[address] Erica Richardson DO Work Phone: Start: 08-21-[address] Erica Richardson DO Work Phone: Start: 08-05-[address] Erica Richardson DO Work Phone: Start: 07-04-2024 SARS-CoV-2, Influenz a & RSV (PCR) Dr. Erica Richardson DO Work Phone: Start: 07-04-2024 X-ray of chest, PA a nd lateral views Dr. Erica Richardson DO Work Phone: Start: 07-04-[address] Erica Richardson DO Work Phone: Start: 07-04-2024 Urnls dip stick/tabl et reagent auto microscopy Dr. Erica Richardson DO Work Phone: Start: 06-04-2024 X-ray of chest, PA a nd lateral views Dr. Erica Richardson DO Work Phone: Start: 05-27-2024 Measurement of renal function Dr. Erica Richardson DO Work Phone: Comment on above: GFR Calc Start: 05-27-[address] Erica Richardson DO Work Phone: Start: 04-24-[address] Erica Richardson DO Work Phone: Start: 08-20-2023 CT cervical spine wi thout contrast Dr. Erica Richardson Work Phone: Start: 08-20-2023 CT of head without contrast Dr. Erica Richardson Work Phone: Start: 05-19-2023 Legionella pneumophi la antigen assay Dr. Erica Richardson Work Phone: Start: 05-19-2023 Streptococcus pneumo niae Antigen (M Dr. Erica Richardson Work Phone: Start: 05-19-[address] Erica Richardson Work Phone: Start: 05-19-2023 Plain chest X-ray Dr. Josh Richardson Work Phone: Start: 05-18-2023 Plain chest X-ray Dr. Josh Richardson Work Phone: Start: 05-18-2023 Bacteria identified in Blood by Culture Dr. Erica Richardson Work Phone: Start: 05-18-2023 SARS-CoV-2, Influenz a & RSV (PCR) Dr. Erica Richardson Work Phone: Start: 11-22-[address] Erica Richardson Work Phone: Start: 11-22-2022 Viral antigen assay Start: 11-22-2022 CT angiography of ch est with contrast Start: 11-22-2022 Radiologic exam ches t 2 views Eliel Blount GR[employer]PERATIONS CREW MEMBER.CEMETERY LABORER Work Phone: Start: 07-02-2022 CT cervical spine wi thout contrast Dr. Erica Richardson Work Phone: Start: 07-02-[address] Erica mejia Work Phone: Start: 07-02-2022 CT of head without contrast Dr. Erica Richardson Work Phone: Start: 06-26-2022 MRI of lower extremity Dr. Erica Richardson Work Phone: Start: 01-10-2022 CT of head without contrast Dr. Erica Richardson Work Phone: Start: 01-04-2022 Mri brain brain stem w/o w/contrast material Sherice Rosenberg GROUND OPERATIONS CREW MEMBER.CEMETERY LABORER Work Phone: Start: 11-02-2021 Radiologic exam ches t 2 views Boaz Grimaldo PA-C Work Phone: Start: 10-30-2021 Ct head/brain w/o co ntrast material Yolie Lowe PA-C Work Phone: Start: 10-09-2021 Antibody screen ERICA RODRIGES SOFIA Comment on above: Order Comment: Speci men Type: BLOOD SPECIMENOrdering Facility: [facility] Address: [address] [place] [address] Performed By: #### T SCR ####[facility] BLOOD BANKCLIA [id number] [address] Start: 10-07-2021 Antibody screen ERICA MA SOFIA Comment on above: Order Comment: Speci men Type: BLOOD SPECIMENOrdering Facility: [facility] Address: [address] [place] [address] Performed By: #### T SCR ####[facility] BLOOD BANKCLIA [id number] [address] Start: 10-07-2021 Plain chest X-ray Dr. Josh Richardson Work Phone: Start: 10-06-2021 Plain x-ray of elbow Dr Lang Richardson Work Phone: Start: 10-06-2021 CT of chest and abdomen Dr. Erica Richardson Work Phone: Start: 10-06-2021 CT cervical spine wi thout contrast Dr. Erica Richardson Work Phone: Start: 10-06-[address] Erica mejia Work Phone: Start: 10-06-2021 CT of head without contrast Dr. Erica Richardson Work Phone: Start: 10-06-2021 Plain X-ray of shoulder Dr. Erica Richardson Work Phone: Start: 08-10-2021 Dual energy X-ray absorptiometry Dr. Erica Richardson Work Phone: Start: 07-12-2021 COVID WITH FLUA+B, ROUTINE Nicho Johnson MD Work Phone: Start: 06-11-2021 CT angiography of he ad and neck Dr. Erica Richardson Work Phone: Start: 05-21-2021 CT of head without contrast Dr. Erica Richardson Work Phone: Start: 03-17-2021 Radex marilee minimu m 2 views Earline Rebolledo GR[employer] OPERATIONS CREW MEMBER.CEMETERY LABORER Work Phone: Start: 12-08-2020 Adult depression scr eening assessment Nicho Johnson MD Work Phone: Start: 12-05-2020 Mammography Nicho jovel MD Work Phone: Start: 04-17-2020 ADD ON LAB TEST Kailee Shannon diannesparkle Anatoly ReaLinda Work Phone: Start: 04-17-2020 Ct head/brain w/o co ntrast material Catalino Lye Work Phone: Start: 04-17-2020 ADD ON LAB TEST Catalino Ley Work Phone: Start: 04-17-2020 Albumin serum plasma /whole blood Catalino Ley Work Phone: Start: 04-17-2020 Assay of lactate Catalino Ley Work Phone: Start: 04-17-2020 Assay of magnesium Andr aaron Ley Work Phone: Start: 04-17-2020 Assay of phosphorus inorganic Catalino Ley Work Phone: Start: 04-17-2020 Assay of thyroid sti mulating hormone tsh Catalino Ley Work Phone: Start: 04-17-2020 BASIC METABOLIC PANE L W/ REFLEX TO MG FOR LOW K Catalino Ley Work Phone: Start: 04-17-2020 Blood count complete auto&auto difrntl wbc Catalino Ley Work Phone: Start: 04-17-2020 Cyanocobalamin vitamin b-12 Catalino Ley Work Phone: Start: 04-16-2020 Assay of lactate Solomon Tenorio Work Phone: Start: 04-16-2020 Assay of ethanol Catalino Ley Work Phone: Start: 04-16-2020 Assay of lactate Catalino Shannon Jorge A Work Phone: Start: 04-16-2020 BASIC METABOLIC PANE L W/ REFLEX TO MG FOR LOW K Catalino Ley Work Phone: Start: 04-16-2020 Blood count complete auto&auto difrntl wbc Catalino Shannon Jorge A Work Phone: Start: 04-16-2020 Drug screen class list a Catalino Ley Work Phone: Start: 04-16-2020 Ecg routine ecg w/le ast 12 lds w/i&r Catalino Ley Work Phone: Urine culture Dr. Erica Richardson Work Phone: Plan of Treatment Date Care Activity Detail Author Start: 06-16-2029 Urine microalbumin profile DTaP,Tdap,Td Vaccine (2 - Td or Tdap) [facility] Start: 10-17-2024 DIABETES SCREEN DIABETES SCREEN [facility] Start: 10-17-2024 Diabetes Screening Diabetes Screenin g [facility] Start: 10-12-2024 DIABETES SCREEN DIABETES SCREEN [facility] Start: 10-11-2024 DIABETES SCREEN DIABETES SCREEN [facility] Start: 07-04-2024 [facility] Start: 07-04-2024 Venous catheter care management [facility] Start: 02-03-2024 End: 02-03-2024 ambulatory 02/03/2024 2:30 PM EDT [facility] Hematology/Oncology [address] [place] [address] Wstr, Lab/[place] [facility] [address] [place] [address] Q3MO PORT FLUSH* Hematology/Oncology Comment on above: Q3MO PORT FLUSH* Start: 12-22-2023 Covid-19 Vaccine () Covid-19 Vaccine () [facility] Start: 12-22-2023 Covid-19 Vaccine () Covid-19 Vaccine ( season) [facility] Start: 12-22-2023 Influenza vaccination C [facility] Start: 11-23-2023 BP CONTROLLED (<130/80) BP CONTROLLE D (<130/80) [facility] Start: 08-20-2023 [facility] Start: 05-21-2023 Patient discharge [facility] Start: 05-21-2023 Removal of urinary catheter [facility] Start: 05-21-2023 Urinary bladder resi dual urine study [facility] Start: 05-19-2023 Aspiration precautions [facility] Start: 05-19-2023 Assessment of risk o f venous thromboembolism [facility] Start: 05-19-2023 Fall prevention [facility] Start: 05-19-2023 Inhalation therapy procedure [facility] Start: 05-19-2023 Insertion of cathete r into peripheral vein [facility] Start: 05-19-2023 Introduction of urin neel catheter [facility] Start: 05-19-2023 Measuring intake and output [facility] Start: 05-19-2023 Oxygen therapy [facility] Start: 05-19-2023 Providing care accor ding to standard [facility] Start: 05-19-2023 Provision of activit y privileges [facility] Start: 05-19-2023 Referral to occupati onal therapist [facility] Start: 05-19-2023 Referral to service [facility] Start: 05-19-2023 Speech therapy assessment [facility] Start: 05-19-2023 [facility] Start: 05-19-2023 Following clinical pathway protocol [facility] Start: 05-19-2023 Hospital admission, emergency, from emergency room, medical nature [facility] Start: 05-19-2023 Legionella pneumophi la Ag [Presence] in Urine [facility] Start: 05-19-2023 Streptococcus pneumo niae antigen assay [facility] Start: 05-19-2023 Verification routine [facility] Start: 05-19-2023 Admission procedure [facility] Start: 05-18-2023 End: 05-19-2023 Blood culture [facility] Start: 05-18-2023 Partial thromboplast in time, activated [facility] Start: 05-18-2023 Prothrombin time [facility] Start: 05-18-2023 End: 05-18-2023 [facility] Start: 05-18-2023 Bacteria identified in Blood by Culture Blood Culture [facility] Start: 05-18-2023 Bacteria identified in Urine by Culture [facility] Start: 04-22-2023 Advance Directive Discussion Advance Directive Discussion [facility] Start: 04-22-2023 Behavioral Health Screening Behavioral Health Screening [facility] Start: 01-09-2023 BP CONTROLLED (<130/80) BP CONTROLLE D (<130/80) [facility] Start: 12-21-2022 Covid-19 Vaccine () Covid-19 Vaccine () [facility] Start: 12-21-2022 Influenza vaccination C [facility] Start: 11-23-2022 Patient discharge [facility] Start: 11-23-2022 Venous catheter care management [facility] Start: 11-23-2022 Respiratory secretio n precautions [facility] Start: 11-22-2022 Physiotherapy of chest [facility] Start: 11-22-2022 Ambulation without limitation [facility] Start: 11-22-2022 Assessment of risk o f venous thromboembolism [facility] Start: 11-22-2022 Incentive spirometry [facility] Start: 11-22-2022 Insertion of cathete r into peripheral vein [facility] Start: 11-22-2022 Measuring intake and output [facility] Start: 11-22-2022 Oxygen therapy [facility] Start: 11-22-2022 Providing care accor ding to standard [facility] Start: 11-22-2022 Referral to occupati onal therapist [facility] Start: 11-22-2022 Referral to service [facility] Start: 11-22-2022 [facility] Start: 11-22-2022 Following clinical pathway protocol [facility] Start: 11-22-2022 Admission procedure [facility] Start: 11-22-2022 Verification routine [facility] Start: 11-22-2022 [facility] Start: 08-03-2023 Inhalation therapy procedure [facility] Start: 11-03-2022 BP CONTROLLED (<130/80) BP CONTROLLE D (<130/80) [facility] Start: 11-02-2022 BP CONTROLLED (<130/80) BP CONTROLLE D (<130/80) [facility] Start: 10-07-2022 Influenza vaccination LUNG CANCER SC REENING [facility] Start: 10-07-2022 Screening for malign ant neoplasm of lung Lung Cancer Screening [facility] Start: 10-05-2022 DIABETES SCREEN DIABETES SCREEN [facility] Start: 07-02-2022 Simple repair f/e/e/ n/l/m 2.6cm-5.0 cm RPR F/E/E/N/L/M 2.6-5.0 CM [facility] Start: 04-22-2022 ADVANCE DIRECTIVE DISCUSSION ADVANCE DIRECTIVE DISCUSSION [facility] Start: 04-22-2022 DEPRESSION ASSESSMENT DEPRESSION ASS ESSMENT [facility] Start: 02-02-2022 End: 12-02-2022 Radiologic exam chest 2 views XR CHEST 2V FRONTAL/LAT Radiology Routine Closed fracture of multiple ribs with flail chest with routine healing, subsequent encounter Expected: 02/02/2022, Expires: 12/02/2022 [facility] Work Phone: Comment on above: Expected: 02/02/2022 , Expires: 12/02/2022 Start: 01-10-2022 Simple repair scalp/neck/ax/genit/trunk 2.5cm/< RPR S/N/AX/GEN/TRNK 2.5CM/< [facility] Work Phone: Start: 12-21-2021 Influenza vaccination INFLUENZA (#1) [facility] Start: 12-08-2021 Adult depression screening assessment DEPRESSION SCREENING [facility] Start: 12-05-2021 Mammography MAMMOGRAM [facility] Start: 2021 RSV Vaccine (1 - 1-d ose 75+ series) RSV Vaccine (1 - 1-dose 75+ series) [facility] Start: 10-25-2021 End: 11-10-2022 Ct head/brain w/o contrast material CT BRAIN WO IVCON Radiology Routine SDH (subdural hematoma) (HCC) Expected: 10/25/2021, Expires: 11/10/2022 [facility] Work Phone: Comment on above: Expected: 10/25/2021 , Expires: 11/10/2022 Start: 10-07-2021 Plain chest X-ray Chest 1 View (Port able) [facility] Work Phone: Start: 10-07-2021 XR Chest Single view [facility] Work Phone: Start: 10-06-2021 Perq drainage pleura insert cath w/o imaging INSERT CATH PLEURA W/O IMAGE [facility] Work Phone: Start: 04-22-2021 ADVANCE DIRECTIVE DISCUSSION ADVANCE DIRECTIVE DISCUSSION [facility] Start: 04-22-2021 DEPRESSION ASSESSMENT DEPRESSION ASS ESSMENT [facility] Start: 12-21-2020 COVID-19 VACCINE (3 - Booster for Moderna series) COVID-19 VACCINE (3 - Booster for Moderna series) [facility] Start: 10-05-2020 Influenza vaccination LUNG CANCER SC REENING [facility] Start: 09-15-2020 COVID-19 VACCINE (3 - Booster for Moderna series) COVID-19 VACCINE (3 - Booster for Moderna series) [facility] Start: 09-15-2020 COVID-19 VACCINE (3 - Moderna series) COVID-19 VACCINE (3 - Moderna series) [facility] Start: 05-09-2020 End: 04-17-2021 CT Head WO Contrast CT Head WO Contrast Imaging Routine Traumatic subdural hematoma with loss of consciousness of 30 minutes or less, subsequent encounter Expected: 05/09/2020 (Approximate), Expires: 04/17/2021 [facility] [place] Comment on above: Expected: 05/09/2020 (Approximate), Expires: 04/17/2021 Start: 11-07-2011 Pneumococcal Vaccine : 65+ (1 of 1 - PCV) Pneumococcal Vaccine: 65+ (1 of 1 - PCV) [facility] Start: 11-07-2011 PNEUMOCOCCAL: 65+ (1 - PCV) PNEUMOCOCCAL: 65+ (1 - PCV) [facility] Start: 11-07-2011 PNEUMOVAX AGE 65 AND OVER WITH 5YR LOOKBACK (#1) PNEUMOVAX AGE 65 AND OVER WITH 5YR LOOKBACK (#1) [facility] Start: 2006 RSV Vaccine (1 - 1-d ose 60+ series) RSV Vaccine (1 - 1-dose 60+ series) [facility] Start: 1996 SHINGRIX VACCINE (1 of 2) VEGA GRIX VACCINE (1 of 2) [facility] Start: 11-07-1991 COLOGUARD (FIT-DNA) COLOGUARD (FIT-D NA) [facility] Start: 11-07-1991 Colonoscopy COLONOSCOPY [facility] Start: 11-07-1991 COLORECTAL CANCER SCREENING COLORECTAL CANCER SCREENING [facility] Start: 11-07-[address] COLONOGRAPHY [facility] Start: 11-07-1991 FECAL OCCULT BLOOD FECAL OCCULT BLOO D [facility] Start: 11-07-1991 LIPID SCREEN LIPID SCREEN [facility] Start: 11-07-1991 SIGMOIDOSCOPY SIGMOIDOSCOPY [facility] Start: 1965 SHINGRIX VACCINE (1 of 2) VEGA GRIX VACCINE (1 of 2) [facility] Start: 1965 Urine microalbumin profile DTAP,TDAP,TD (1 - Tdap) [facility] Start: 1964 ANNUAL PCP TEAM DRUPAL DEVELOPER ALICIA DISEASE VISIT ANNUAL PCP TEAM CHRONIC DISEASE VISIT [facility] Start: 1964 BP CONTROLLED (<130/80) BP CONTROLLE D (<130/80) [facility] Start: 1964 Depression Screening Depression Scre ening [facility] Start: 1964 HEPATITIS C SCREENING HEPATITIS C [facility] Start: 1964 Hepatitis C screening Hepatitis C [place] Start: 1951 PNEUMOCOCCAL: 65+ (1 - PCV) PNEUMOCOCCAL: 65+ (1 - PCV) [facility] End: 04-17-2020 aPTT Coag (Bld) [Time] APTT Lab STAT One Time for 1 Occurrences starting 04/17/2020 until 04/17/2020 [facility], [place] Comment on above: One Time for 1 Occur rences starting 04/17/2020 until 04/17/2020 aPTT in Platelet poo r plasma by Coagulation assay [facility] Bacteria identified in Sputum by Respiratory culture [facility] Basic Metabolic Pane l w/ Reflex to MG Basic Metabolic Panel w/ Reflex to MG Lab Routine Daily until discontinued starting 04/16/2020, 2 [facility] Comment on above: Daily until disconti nued starting 04/16/2020, 2 completed CBC auto differential CBC auto d ifferential Lab Routine Daily until discontinued starting 04/16/2020, 2 completed [facility] Comment on above: Daily until disconti nued starting 04/16/2020, 2 completed EKG 12 Lead EKG 12 Lead ECG Routine 04/16/2020 11:45 AM EST [facility] INR in Platelet poor plasma by Coagulation assay [facility] Magnesium [Mass/volu me] in Serum or Plasma [facility] Microscopic observat ion [Identifier] in Unspecified specimen by Gram stain [facility] Oxygen therapy [[facility] Data Set] Initiate Oxygen Therapy Protocol Respiratory Care Routine Daily until discontinued starting 04/16/2020 [facility] Comment on above: Daily until disconti nued starting 04/16/[address] [facility] Work Phone: Patient referral [facility] Work Phone: Phosphate [Mass/Vol] Phosphorus Lab Routine Daily until discontinued starting 04/17/2020, 1 completed [facility] Comment on above: Daily until disconti nued starting 04/17/2020, 1 completed Radiologic exam ches t 2 views XR CHEST 2V FRONTAL/LAT Radiology Routine Closed fracture of multiple ribs of left side, initial encounter Lung laceration, subsequent encounter 11/02/2021 12:32 PM EDT [facility] Work Phone: SARS-CoV-2 (COVID-19 ) RNA [Presence] in Respiratory specimen by LEONA with probe detection 2019 CORONAVIRUS Microbiology Routine Acute cough SOB (shortness of breath) Suspected COVID-19 virus infection 11/22/2022 12:45 PM EDT 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 One Time for 1 Occurrences starting 04/16/2020 until [facility] Comment on above: One Time for 1 Occur rences starting 04/16/2020 until 04/16/2020 End: 04-18-2020 Vitamin D 25 Hydroxy Vitamin D 25 Hydroxy Lab Routine Tomorrow AM for 1 Occurrences starting 04/18/2020 until 04/18/2020 [facility] [place] Comment on above: Tomorrow AM for 1 Oc currences starting 04/18/2020 until 04/18/2020 [facility] Immunization Date Immunization Notes Care Provider Fa [facility] 12-18-2023 tetanus toxoid, reduced diphtheria toxoid, and acellular pertussis vaccine, adsorbed Dr. Erica Richardson DO Work Phone: [facility] 08-20-2023 tetanus toxoid, reduced diphtheria toxoid, and acellular pertussis vaccine, adsorbed Dr. Erica Richardson Work Phone: [facility] 03-09-2021 influenza, injectabl e, quadrivalent, preservative free Dr. Erica Richardson Work Phone: [facility] 03-09-2021 influenza, seasonal, injectable Dr. Erica Richardson Work Phone: [facility] 03-09-2021 influenza virus vaccine, unspecified formulation Lab/Port Wstr Work Phone: [facility] 07-27-2020 Covid (Moderna) Dr. Erica kuhn Work Phone: [facility] 07-21-2020 COVID-19 vaccine, fu ll dose (MODERNA) Nicho Johnson MD Work Phone: [facility] 06-29-2020 Covid (Moderna) Dr. Erica kuhn Work Phone: [facility] 06-24-2020 COVID-19 vaccine, fu ll dose (MODERNA) Nicho Johnson MD Work Phone: [facility] 02-09-[address] Erica Richardson Work Phone: [facility] 09-11-[address] Elena Richardson Work Phone: [facility] Work Phone: 09-11-2019 pneumococcal vaccine , unspecified formulation [facility] 06-16-2019 tetanus toxoid, reduced diphtheria toxoid, and acellular pertussis vaccine, adsorbed Dr. Erica Richardson Work Phone: [facility] 01-23-2019 influenza, high dose seasonal, preservative-free Nicho Johnson MD Work Phone: [facility] NEGATED: Highlighted row has not occurred!04-17-2020 tetanus and diphtheria toxoids, adsorbed, preservative free, for adult use (5 Lf of tetanus toxoid and 2 Lf of diphtheria toxoid) [place], [place] Payers Date Payer Category Payer Self-pay [id number] 2016 Unknown ARJUN DÍAZ ME DICARE SUPPLEMENT [id number] 2016-Present [phone] [address] [place] [address] Indemnity [id number] 2016 Unknown ARJUN DÍAZ ME DICARE SUPPLEMENT [id number] 2016-Present [phone] [address] Indemnity [id number] 2012 Unknown [id number] 2011 Medicare MEDICARE MEDICAR E A AND B [id number] 2011-Present [phone] [address] [address] [place] [address] Medicare [id number] 2011 Medicare MEDICARE MEDICAR E A AND B [id number] 2011-Present [phone] [place] [address] Medicare [id number] 2011 Medicare [id number] Unknown [id number] 2 Unknown [id number] 2 Unknown [id number] 2 Unknown [id number] 2 Unknown [id number] 2 Unknown [id number] 2 Unknown [id number] 2 Unknown [id number] 2 Unknown [id number] 2 Unknown [id number] [id number] 2 Unknown [id number] 2 Social History Date Type Detail Facility Start: 04-17-2020 End: 07-04-2024 Tobacco smoking status NHIS Former smoker [facility] Start: 02-20-1979 End: 02-20-2019 History of tobacco use Current smoker [place] Start: 03-29-2020 End: 04-17-2020 Cigarettes smoked current (pack per day) - Reported [facility] Start: 05-01-2019 End: 04-17-2020 Tobacco use and exposure Never used [place] Start: 04-17-2020 Alcohol intake Current drinke r of alcohol (finding) [place] Start: 04-16-2020 Alcohol Comment 2-3 times a week [place], [place] Start: 1945 Sex Assigned At Not on file M [place], [place] Start: 02-15-2021 End: 01-09-2022 Exposure to SARS-CoV-2 (event) Not sure [place] Start: 02-20-1979 End: 02-20-2019 History of tobacco use Cigarette Smoker [facility] Start: 01-12-2021 End: 07-12-2021 Alcohol intake Current non-drinker of alcohol (finding) [facility] Start: 08-07-2021 End: 08-20-2023 Tobacco smoking status NHIS Unknown if ever smoked [facility] Start: 03-11-2020 Heavy [facility] Start: 03-10-2020 None [place] [facility] Start: 03-11-2020 Alone [facility] Start: 09-01-[address] [facility] Start: 1945 Sex Assigned At Female W [facility] Start: 03-29-2020 End: 11-22-2022 Tobacco use panel [facility] National Score (1-10 0), lower number is lower risk 99 [facility] Start: 07-04-2024 Sex Female (finding) [facility] Medical Equipment Procedure Code Equipment Code Equipment Origin al Text Equipment Identifier Dates Snq-Ga-C-Kind Implant - [id number] Start: 06-10-2015 Comment on above: Description: 3.5mm L CP plate 6 hole 85mm length [id number] PLATE Jhe-Vu-T-Kind Implant - [id number] Start: 06-10-2015 Comment on above: Description: DBX Put ty 0.5cc Screw [id number] Start: 06-13-2018 Plate Philos Standard Stainless Steel 90mm Bone 3 Hole Locking Compression - [id number] Start: 06-13-2018 Port Implantable Power Port 6fr - [id number] Start: 06-30-2012 Comment on above: Description: POWERPO RT Screw Lc-Dcp Dcp 3.5mm 6mm Full Thread Stainless Steel 14mm Bone Self Tap - [id number] Start: 06-10-2015 Screw Lcp 3.5mm Full Thread Stainless Steel 14mm Bone Stardrive Recess Self - [id number] Start: 06-10-2015 Screw Lc-Dcp Dcp 3.5mm 6mm Full Thread Stainless Steel 16mm Bone Self - [id number] Start: 06-10-2015 Screw 3.7mm T15 Full Thread Stainless Steel 36mm Bone Self Drill Cannulated - [id number] Start: 06-13-2018 Screw Lcp 3.5mm Full Thread Stainless Steel 26mm Bone Stardrive Recess Self - [id number] Start: 06-13-2018 Screw Dcp Lc-Dcp 3.5mm Stainless Steel 28mm Bone Self Tapping Hexagonal - [id number] Start: 06-13-2018 Screw 3.7mm Full Thread T15 Stainless Steel 38mm Bone Self Drill Cannulated - [id number] Start: 06-13-2018 Screw Lcp 3.5mm Stainless Steel 26mm Bone Self Tapping Small Fragment - [id number] Start: 06-13-2018 Screw 3.7mm T15 Full Thread Stainless Steel 50mm Bone Self Drill Cannulated - [id number] Start: 06-13-2018 Screw 3.7mm T15 Full Thread Stainless Steel 40mm Bone Self Drill Cannulated - [id number] Start: 06-13-2018 Plate Straight Eight Hole [id number] Start: 10-09-2021 Plate Pre-Contou red Sixteen Hole [id number] Start: 10-09-2021 Screw Locking Self-Drilling 2.4mm X 8mm [id number] Start: 10-09-2021 Cap Locking Larg e Bone Screw 323.1205 [id number] Start: 10-09-2021 Washer 9.5mm 323.1290 [id number] Start: 10-09-2021 Advatagerib Shor t Bridge 60mm W/23mm Locking Posts [id number] Start: 10-09-2021 2.7mm X 8mm Resc ue Locking Screw - [id number] Start: 10-09-2021 Goals Date Patient Goal Desired Activity /State Functional Status Date Assessment Result Facility 05-21-[address] [facility] Work Phone: 11-23-2022 Functional status Ambulates;Bathroom Priv ilege [facility] Work Phone: Mental Status Date Assessment Result Facility 07-04-2024 Cognitive function Level Of Cons ciousness Awake;Alert;Appropriate [facility] Work Phone: 05-21-2023 Cognitive function Voice/Name [facility] Work Phone: 05-18-2023 Cognitive function Voice/Name [facility] Work Phone: 11-23-2022 Cognitive function Cooperative;Talkative [facility] Work Phone: 06-11-2021 Cognitive function Level Of Cons ciousness Awake;Alert;Appropriate;Follow s Commands [facility] Work Phone: Clinical Notes 07-17-2012 to 07-04-2024 Note Date & Type Note Facility 07-04-2024 Radiology Diagnostic study note [facility] Imaging Services [address] [place] [address] Chest PA and Lateral MR#: [id number] Acct: [id number] Name: AIDEN FIELDS Consuelo Rep #: [id number] : 1945 F 78 From: Abhi Carrington DO PCP: Dr. Erica Richardson DO Status: REG ER Study:Chest PA and Lateral Date of Exam: 07/04/24 Exam# [id number] Ordering Dr: Froy Cameron DO PROCEDURE: CHEST PA AND LATERAL REASON FOR EXAM: COUGH TECHNIQUE: Two views of the chest COMPARISON: 06/04/2024 FINDINGS: Cardiomediastinal silhouette is within normal limits. Lungs are clear. No sizable pneumothorax. Right MediPort catheter in place. Status post left rib plating and fixation of the proximal right humerus. RAD/Chest PA and Lateral IMPRESSION: No acute airspace abnormality. Reading Location: [facility] CC: Dr. Froy Cameron DO; Dr. Erica Richardson DO ~ Calculation Clerk: Signed [facility] 08-20-2023 Discharge summary Note Date/Time August 20, 2023 1:03pm [facility] Medical Records Department [address] [place] [address] Emergency Department Summary 08/20/23 MR#: [id number] Acct: [id number] Name: AIDEN FIELDS Rep #:[id number] : 1945 77 From: Seb Nguyen PCP: Dr. Erica Richardson DO Status:REG ER Location: ED HPI History of Present Illness Chief Complaint: Laceration PFSH PFSH Medical History Alcohol abuse Anemia Anxiety and depression Arthritis Back problem Benzodiazepine dependence Breast cancer Calcium deficiency Frequent falls GERD (gastroesophageal reflux disease) Glaucoma High cholesterol Hypertension Hypoparathyroidism after procedure Hypothyroidism Melanoma Multiple rib fractures Opioid dependence Rheumatoid arthritis Skin cancer Subdural hematoma Tobacco abuse Vitamin D deficiency Home Medications potassium chloride 20 mEq tablet,extended release(part/cryst) 40 meq PO DAILY SUPPLEMENT 08/01/20 [History Last Taken 11/22/22] valacyclovir 1 gram tablet 1,000 mg PO DAILY SHINGLES 08/01/20 [History Last Taken 11/22/22] dexamethasone sodium phosphate 0.1 % eye drops 1 drp ophthalmic (eye) DAILY glaucoma 03/09/21 [History Last Taken 11/22/22] hydrocodone 10 mg-acetaminophen 325 mg tablet 1 tab PO Q6H PAIN 06/11/21 [History Last Taken 11/22/22] clonazepam 1 mg tablet 1 mg PO BID #6 tabs 03/03/22 [Rx Last Taken 11/22/22] pregabalin 75 mg capsule 75 mg PO TID PAIN #9 caps 03/03/22 [Rx Last Taken 11/22/22] amlodipine 5 mg tablet 5 mg PO DAILY 11/22/22 [History Last Taken 11/22/22] calcitriol 0.5 mcg capsule 0.5 mcg PO DAILY 11/22/22 [History Last Taken 11/22/22] cholecalciferol (vitamin D3) 25 mcg (1,000 unit) capsule 25 mcg PO DAILY SUPPLEMENT 11/22/22 [History Last Taken 11/22/22] escitalopram oxalate 10 mg tablet (Lexapro) 10 mg PO DAILY ANXIETY 11/22/22 [History Last Taken 11/22/22] magnesium oxide 500 mg PO DAILY SUPPLEMENT 11/22/22 [History Last Taken 11/22/22] meclizine 25 mg tablet 25 mg PO TID Dizziness 11/22/22 [History Last Taken 11/22/22] memantine 5 mg tablet 5 mg PO BID 11/22/22 [History Last Taken 11/22/22] nabumetone 750 mg tablet 750 mg PO BID 11/22/22 [History Last Taken 11/22/22] quetiapine 100 mg tablet 25 mg PO DAILY DEPRESSION 11/22/22 [History Last Taken 11/22/22] albuterol sulfate 90 mcg/actuation aerosol inhaler (Proventil HFA) 2 puff inhalation Q6H PRN shortness of breath or wheezing #8.5 grams 11/23/22 [Rx Last Taken Unknown] levothyroxine 125 mcg tablet 125 mcg PO DAILY #90 tabs 02/19/23 [Rx Last Taken Unknown] acetaminophen 500 mg capsule 500 mg PO BID 05/19/23 [History Last Taken Unknown] famotidine 20 mg tablet (Pepcid) 20 mg PO QHS 05/19/23 [History Last Taken Unknown] polyethylene glycol 3350 17 gram/dose oral powder (ClearLax) 17 g PO DAILY 05/19/23 [History Last Taken Unknown] pyridoxine (vitamin B6) 100 mg tablet 100 mg PO DAILY 05/19/23 [History Last Taken Unknown] levofloxacin 750 mg tablet 750 mg PO DAILY@0600 #6 tabs 05/21/23 [Rx Last Taken Unknown] Allergy/AdvReac Type Severity Reaction Status Date / Time bacitracin Allergy Unknown Unknown Verified 08/20/23 12:28 [From Neosporin ([id number])] neomycin Allergy Unknown Unknown Verified 08/20/23 12:28 [From Neosporin ([id number])] polymyxin B Allergy Unknown Unknown Verified 08/20/23 12:28 [From Neosporin ([id number])] Antihistamines - Alkylamine Allergy PT UNSURE Verified 08/20/23 12:28 OF REACTION diphenhydramine Allergy PT UNSURE Verified 08/20/23 12:28 [From Benadryl] OF REACTION Family History Unknown Thyroid disorder Cancer High cholesterol Arthritis Mother Cancer Diabetes Father , Father at the age of 50 from successful suicide attempt. Suicidal intent Other Alcohol abuse Anxiety Depression Heart disease Hypertension Mental disorder Parkinson disease Psychiatric care Surgical History H/O mastectomy H/O thyroidectomy Status post glaucoma surgery Social History (Updated 05/19/23 @ 01:[address] Aggie Bolton MD) household members: none Smoking Status: Former smoker second hand exposure: Yes alcohol intake: current alcohol intake frequency: 3 or more drinks per day substance use type: does not use EXAM Physical Exam Const Vital Signs: 08/20/23 12:24 08/20/23 16:10 Temperature 97.9 F Temperature Source Temporal Pulse Rate 75 79 Respiratory Rate 18 16 Blood Pressure 161/98 H 164/85 H Blood Pressure Mean 119 111 Pulse Ox 96 95 Oxygen Delivery Method Room Air Room Air [facility] Narrative Medical decision making narrative: HISTORY OF PRESENT ILLNESS: 77-year-old female presents after mechanical fall from standing with head traumaand concern for laceration. No loss of consciousness. No blood thinner use. REVIEW OF SYSTEMS: Pertinent positives: Fall, laceration Pertinent negatives: Loss of consciousness PHYSICAL EXAM: Nursing triage notes reviewed, Vital signs reviewed Primary Survey Airway: Intact Breathing: Bilateral breath sounds Circulation: Palpable bilateral femorals, Palpable bilateral radial, Palpable bilateral DP and Palpable bilateral PT Disability / Spine precautions GCS Score: Eye Openin Verbal Response: 5 Motor Response: 6 Secondary Survey Constitutional: Please see MDM Head: Atraumatic, Midface stable, NO jaw malocclusion, No Cephalohematoma, and No Lacerations noted Eye: Pupils equal round and reactive to light, Extraocular muscles intact and Noperiorbital ecchymosis or stepoff, no evidence of entrapment ENT: Oropharynx clear, no lacerations, no hemotympanum, no raccoon eyes or tejeda sign Cervical spine / Neck: No cervical spine bony tenderness, crepitance, or stepoffdeformity Trachea midline Lungs: Clear to auscultation, No asymmetric rise and No crepitus, no flail chest Cardiac: Regular rate and rhythm and No murmurs Abdomen: Soft, Nontender and No rebound Pelvis: Pelvis stable to compression : No evidence of genital injury Back: No midline bony tenderness to thoracic/lumbar/sacral spines Neuro: Alert and oriented x3, neuro exam at baseline, cranial nerves II through XII are intact. 5 of 5 strength in upper and lower extremities in flexion extension. Intact sensation to light touch in upper and lower extremity dermatomes. No truncal or extremity ataxia. No dysdiadochokinesia. Normal gait. 2+ reflexes in upper and lower extremities. No meningeal signs. Negative Babinski. NIH of 0. Extremities: NO gross Deformities Psych: Normal affect Nursing triage notes reviewed, Vital signs reviewed MEDICAL DECISION MAKING: Chief Complaint: Fall, laceration External records reviewed: Prior imaging reviewed: CT scan of the brain from June 2022 shows the following: No acute intracranial findings. Right orbital floor fracture. Possible nondisplaced right medial orbital wall fracture. Factors affecting care: Alcohol abuse, anxiety, Social determinants of health: History of alcohol abuse History obtained from others: none Consults: none MDM Narrative: The patient was hemodynamically stable, afebrile and nontoxic-appearing. Primary secondary trauma surveys concerning for the following: I considered the following differential diagnosis: Laceration, skull fracture, ICH ALL IMAGES (IF OBTAINED) HAVE BEEN PERSONALLY REVIEWED AND INTERPRETED BY MYSELF. CT scan of the head, cervical spine are negative for acute traumatic injury including ICH, cervical spine fracture dislocation or skull fracture. Patient laceration was repaired as below. No clear life-limiting etiology be ascertained. The patient is appropriate for discharge home. Procedure: Laceration repair. The procedure was performed by myself. Indication: Wound repair Risks and benefits: risks, benefits and alternatives were discussed Consent: Consent was obtained. Wound Details: 1 cm linear laceration noted along the scalp line proximal and 1 mm in depth, no galeal involvement Anesthesia: Topical let Wound prep: Patient was prepped and draped in the usual sterile fashion. Tetanus: Updated today Irrigation Solution: Saline Wound Preparation: Cleaned with topical chlorhexidine The wound was explored to its base in a bloodless field. Procedure Description: Placed 3 simple erupted 5-0 Chromic Gut sutures with goodapproximation Patient tolerated the procedure well with no immediate complications The patient and/or family, caregivers express understanding. The patient and/orfamily, caregivers agrees with the plan. Shared decision making: I will have a discussion with the patient and or visitors regarding risk/benefits of further testing or admission. They will be made aware of of the risk/benefits inherent in this decision they will be given the opportunity tovoice understanding. Total critical care time today provided was at least 0 minutes. This excludes separately billable procedures. Critical care time (if documented) is secondary to the patient having high probability of clinically significant/life threatening deterioration in the patient's condition which required my urgent intervention. Impression: 1. Head laceration 2. Concussion Dispo: Discharge home This note was generated with [employer] dictation software. It may contain incorrectwords, spelling, and punctuation that were not noted in review of the chart prior to signing. Radiography Diagnostic Testing: Clinical Impression(s) from Imaging Studies Brain CT 08/20/23 13:27 IMPRESSION: Chronic involutional changes of the brain. Electronically Signed: Franki Glez MD at 15:45 EDT , Cervical Spine CT 08/20/23 13:27 IMPRESSION: There is no definite acute fracture/dislocation. Degenerative changes. Electronically Signed: Danny Nair MD at 16:26 EDT , Discharge Plan Triage Chief Complaint: Laceration ED Provider: Seb Bautista Dx/Rx/DC Orders Instructions: ED Laceration, All Closures Prescriptions: No Action valacyclovir 1 gram tablet 1,000 mg PO DAILY potassium chloride 20 mEq tablet,ER particles/crystals 40 meq PO DAILY dexamethasone sodium phosphate 0.1 % drops 1 drp ophthalmic (eye) DAILY Rx Instructions: RIGHT EYE hydrocodone-acetaminophen 10-325 mg tablet 1 tab PO Q6H acetaminophen 500 mg capsule 500 mg PO BID polyethylene glycol 3350 [ClearLax] 17 gram/dose powder 17 g PO DAILY famotidine [Pepcid] 20 mg tablet 20 mg PO QHS pyridoxine (vitamin B6) 100 mg tablet 100 mg PO DAILY levofloxacin 750 mg Tablet 750 mg PO DAILY@0600 Qty: 6 0RF cholecalciferol (vitamin D3) 25 mcg (1,000 unit) capsule 25 mcg PO DAILY magnesium oxide 500 mg tablet 500 mg PO DAILY memantine 5 mg tablet 5 mg PO BID nabumetone 750 mg tablet 750 mg PO BID escitalopram oxalate [Lexapro] 10 mg tablet 10 mg PO DAILY quetiapine 100 mg tablet 25 mg PO DAILY amlodipine 5 mg tablet 5 mg PO DAILY meclizine 25 MG tablet 25 mg PO TID calcitriol 0.5 mcg capsule 0.5 mcg PO DAILY Rx Instructions: please discontinue any rx for calcitriol by an other doctors albuterol sulfate [Proventil HFA] 90 mcg/actuation HFA aerosol inhaler 2 puff inhalation Q6H PRN (Reason: shortness of breath or wheezing) Qty: 8.5 0RF clonazepam 1 mg tablet 1 mg PO BID Qty: 6 0RF pregabalin 75 mg capsule 75 mg PO TID Qty: 9 0RF levothyroxine 125 mcg tablet 125 mcg PO DAILY Qty: 90 0RF Primary Care Provider: Erica Richardson Referrals: Erica Richardson DO [Primary Care Provider] - Activity Restrictions/Additional Instructions: Thank you for trusting us with your care today! Please take Tylenol (2 pills, 650 mg), ibuprofen (2 pills, 400 mg) every 6 hoursas needed for pain and fever control. Please return to the emergency department if your symptoms change or worsen. Please follow with your primary care physician for further outpatient evaluationand management. Disposition Disposition: Home, Self Care What to do if you have Problems For any increased pain, shortness of breath, bleeding, nausea or vomiting, chestpain, or any unexpected problems, contact your Primary Care Provider. Call [facility] ([phone]) or report to the closest Emergency Room. Call 911 if necessary. 08/20/23 1647 <Electronically signed by Seb Bautista DO> Cosigner Signature (if applicable): CC: Dr. Erica Richardson, ~ Signed [facility] Work Phone: 1(736) 659-305401-30-2024 Consult note Author Aryan Harris [facility] May 21, 2023 10:55am Note Date/Time May 21, 2023 1 0:56am [facility] Medical Records Department [address] [place] [address] Counseling Note - Pharmacy 05/21/23 1055 MR#: [id number] Acct: [id number] Name: DIAMONDAIDEN Consuelo Rep #:[id number] 1945 77 From: Aryan Harris PCP: Dr. Erica Richardson DO Status:ADM IN Y Location: [place] [address] Pharmacy [facility] has performed discharge medication reconciliation and counseling for this patient. The patient's discharge medication list was reviewed for discrepancies and discrepancies were resolved. The patient was counseled on the following discharge medications and changes in medications for homegoing were reviewed. The Reason for Use, instructions for use, and potential side effects were reviewed for all new medications. The patient's questions regarding all of their medications were answered. 1. Levofloxacin 750 mg PO daily x 6 days The patient was able to verbally demonstrate an understanding of their dischargemedications. Medications at Discharge Home Medications potassium chloride 20 mEq tablet,extended release(part/cryst) 40 meq PO DAILY SUPPLEMENT 08/01/20 valacyclovir 1 gram tablet 1,000 mg PO DAILY SHINGLES 08/01/20 dexamethasone sodium phosphate 0.1 % eye drops 1 drp ophthalmic (eye) DAILY glaucoma 03/09/21 hydrocodone 10 mg-acetaminophen 325 mg tablet 1 tab PO Q6H PAIN 06/11/21 clonazepam 1 mg tablet 1 mg PO BID #6 tabs 03/03/22 pregabalin 75 mg capsule 75 mg PO TID PAIN #9 caps 03/03/22 amlodipine 5 mg tablet 5 mg PO DAILY 11/22/22 calcitriol 0.5 mcg capsule 0.5 mcg PO DAILY 11/22/22 cholecalciferol (vitamin D3) 25 mcg (1,000 unit) capsule 25 mcg PO DAILY SUPPLEMENT 11/22/22 escitalopram oxalate 10 mg tablet (Lexapro) 10 mg PO DAILY ANXIETY 11/22/22 magnesium oxide 500 mg PO DAILY SUPPLEMENT 11/22/22 meclizine 25 mg tablet 25 mg PO TID Dizziness 11/22/22 memantine 5 mg tablet 5 mg PO BID 11/22/22 nabumetone 750 mg tablet 750 mg PO BID 11/22/22 quetiapine 100 mg tablet 25 mg PO DAILY DEPRESSION 11/22/22 albuterol sulfate 90 mcg/actuation aerosol inhaler (Proventil HFA) 2 puff inhalation Q6H PRN shortness of breath or wheezing #8.5 grams 11/23/22 levothyroxine 125 mcg tablet 125 mcg PO DAILY #90 tabs 02/19/23 acetaminophen 500 mg capsule 500 mg PO BID 05/19/23 famotidine 20 mg tablet (Pepcid) 20 mg PO QHS 05/19/23 polyethylene glycol 3350 17 gram/dose oral powder (ClearLax) 17 g PO DAILY 05/19/23 pyridoxine (vitamin B6) 100 mg tablet 100 mg PO DAILY 05/19/23 levofloxacin 750 mg tablet 750 mg PO DAILY@0600 #6 tabs 05/21/23 05/21/23 1055 <Electronically signed by Aryan villeda> Date _ Aryan Rosenthal Signature (if applicable): Date CC: ~ Signed [facility] Work Phone: 1(252) 672-528001-30-2024 Discharge summary Author Froy Velázquez [facility] May 21, 2023 10:34am Note Date/Time May 21, 2023 1 0:31am [facility] System Medical Records Department [address] [place] [address] Discharge Summary 05/21/23 1030 MR#: [id number] Acct: [id number] Name: AIDEN FIELDS Rep #:[id number] : 1945 77 From: Froy Velázquez DO PCP: Dr. Erica Richardson DO Status:ADM IN Location: [facility] [id number] Providers Date of Admission: 05/19/23 Primary Care Physician: Dr. Erica Richardson DO Reason For Visit: ENCEPHALOPATHY, UTI, ASPIRATION SUSPECTED W/HYPOXI Diagnosis Discharge Diagnosis (1) Encephalopathy due to infection: Status: Acute Code(s): G93.49 - Other encephalopathy; B99.9 - Unspecified infectious disease Plan Acute transient encephalopathy, metabolic * suspected multifactorial, secondary to dementia and UTI and bacteremia. UTI * E. coli, christiansen-sensitive * on pip/tazo, change to levofloxacin for 7 more days. * dc levin catheter. check post-void residual. Bacteremia * BCx on 05/18 showing christiansen-sensitive E. coli * on pip/tazo * due to UTI. Acute kidney injury: * ruled out. Was not present on admission. No additional work up. Hyperglycemia: * No diabetic history per review of chart, admission glucose 134, possibly stress response, continue to trend and if further elevated low threshold to obtain hemoglobin A1c. Chronic conditions: * EtOH Abuse: Noted during prior admissions and patient has had significantly elevated alcohol levels previously, frequently denies but family has mentioned she is an alcoholic. Ethyl alcohol level pending as well as UDS upon presentation. Will maintain on CIWA protocol, MVI, thiamine and folic acid. Case management consulted. * Polysubstance abuse: Patient with previous admissions with positive opiate and also on a significant amount of benzodiazepines with also alcohol abuse, urine drug screen pending upon evaluation of patient. * Dementia, unclear type with unclear behavioral disturbance history: Complicates presentation, will continue patient home memantine home regimen, maintain on fall and aspiration precautions, therapies as well as case management consulted as noted. * Anxiety and depression: We will continue patient home BuSpar, clonazepam regimen to avoid any withdrawal however if any concerns for sedation low threshold to hold, continue patient home Seroquel low-dose regimen concurrently. * Chronic normocytic anemia: Admission hemoglobin 11.9, MCV 97.9, baseline hemo globin similar, continue to trend. * Hypothyroidism: Will continue patient on levothyroxine regimen * GERD: We will continue patient home famotidine regimen. * Hypertension: BP low upon ED initial presentation and evaluation, will temporally hold amlodipine, resume once appropriate. * Hyperlipidemia: Not on statin per current regimen listed, defer to outpatient. * Questionable history of rheumatoid arthritis: Not on regimen, encourage continued outpatient follow-up with rheumatology as needed. DC home with [facility]. Medications at Discharge Home Medications potassium chloride 20 mEq tablet,extended release(part/cryst) 40 meq PO DAILY SUPPLEMENT 08/01/20 valacyclovir 1 gram tablet 1,000 mg PO DAILY SHINGLES 08/01/20 dexamethasone sodium phosphate 0.1 % eye drops 1 drp ophthalmic (eye) DAILY glaucoma 03/09/21 hydrocodone 10 mg-acetaminophen 325 mg tablet 1 tab PO Q6H PAIN 06/11/21 clonazepam 1 mg tablet 1 mg PO BID #6 tabs 03/03/22 pregabalin 75 mg capsule 75 mg PO TID PAIN #9 caps 03/03/22 amlodipine 5 mg tablet 5 mg PO DAILY 11/22/22 calcitriol 0.5 mcg capsule 0.5 mcg PO DAILY 11/22/22 cholecalciferol (vitamin D3) 25 mcg (1,000 unit) capsule 25 mcg PO DAILY SUPPLEMENT 11/22/22 escitalopram oxalate 10 mg tablet (Lexapro) 10 mg PO DAILY ANXIETY 11/22/22 magnesium oxide 500 mg PO DAILY SUPPLEMENT 11/22/22 meclizine 25 mg tablet 25 mg PO TID Dizziness 11/22/22 memantine 5 mg tablet 5 mg PO BID 11/22/22 nabumetone 750 mg tablet 750 mg PO BID 11/22/22 quetiapine 100 mg tablet 25 mg PO DAILY DEPRESSION 11/22/22 albuterol sulfate 90 mcg/actuation aerosol inhaler (Proventil HFA) 2 puff inhalation Q6H PRN shortness of breath or wheezing #8.5 grams 11/23/22 levothyroxine 125 mcg tablet 125 mcg PO DAILY #90 tabs 02/19/23 acetaminophen 500 mg capsule 500 mg PO BID 05/19/23 famotidine 20 mg tablet (Pepcid) 20 mg PO QHS 05/19/23 polyethylene glycol 3350 17 gram/dose oral powder (ClearLax) 17 g PO DAILY 05/19/23 pyridoxine (vitamin B6) 100 mg tablet 100 mg PO DAILY 05/19/23 levofloxacin 750 mg tablet 750 mg PO DAILY@0600 #6 tabs 05/21/23 Hospital Course Operations None Procedures None Summary of Care Provided Minutes Spent on Discharge: 32 Weight / BMI Weight Weight: 74.865 kg Body Mass Index (BMI) 26.6 ABG / Lab / Microbiology Data 05/20/23 05:21 05/20/23 05:21 Laboratory: Laboratory Results - last 24 hr 05/19/23 06:10: Diff Path Review Reviewed 05/20/23 05:21: Diff Path Review Reviewed Microbiology: Microbiology 05/18/23 23:50 Blood Culture (Wb) - Left Hand Blood Culture - Final Escherichia coli 05/18/23 23:50 Urine, Catheterized Urine Culture - Final Presumptive E. coli 05/19/23 00:00 Urine, Clean Catch Legionella Antigen - Final 05/19/23 00:00 Urine, Clean Catch Streptococcus pneumoniae Antigen (M - Final 05/18/23 23:43 Mucosa - Nasopharyngeal SARS-CoV-2, Influenza & RSV (PCR) - Final D/C Instructions Discharge Diet: No restrictions Meaningful Use Info Meaningful Use Diagnoses (Choose all that apply): None applicable Discharge Plan Admission Admit Date/Time: 05/19/23 01:36 Primary Reason for Your Visit: Urinary tract infection Attending Provider: Froy Velázquez Primary Care Provider: Erica Richardson Consulting Providers: Aggie Bolton; Vernon Osman Instructions Additional Instructions / Restrictions: You presented very ill from a urinary tract infection that also led to bacteremia (bacteria in your blood). You have done well with antibiotics. You will be on antibiotics for 6 more days with levofloxacin. Please take the antibiotic until that has been completed. Discharge Orders/Prescriptions Prescriptions: New levofloxacin 750 mg Tablet 750 mg PO DAILY@0600 Qty: 6 0RF Continued valacyclovir 1 gram tablet 1,000 mg PO DAILY potassium chloride 20 mEq tablet,ER particles/crystals 40 meq PO DAILY dexamethasone sodium phosphate 0.1 % drops 1 drp ophthalmic (eye) DAILY Rx Instructions: RIGHT EYE hydrocodone-acetaminophen 10-325 mg tablet 1 tab PO Q6H acetaminophen 500 mg capsule 500 mg PO BID polyethylene glycol 3350 [ClearLax] 17 gram/dose powder 17 g PO DAILY famotidine [Pepcid] 20 mg tablet 20 mg PO QHS pyridoxine (vitamin B6) 100 mg tablet 100 mg PO DAILY cholecalciferol (vitamin D3) 25 mcg (1,000 unit) capsule 25 mcg PO DAILY magnesium oxide 500 mg tablet 500 mg PO DAILY memantine 5 mg tablet 5 mg PO BID nabumetone 750 mg tablet 750 mg PO BID escitalopram oxalate [Lexapro] 10 mg tablet 10 mg PO DAILY quetiapine 100 mg tablet 25 mg PO DAILY amlodipine 5 mg tablet 5 mg PO DAILY meclizine 25 MG tablet 25 mg PO TID calcitriol 0.5 mcg capsule 0.5 mcg PO DAILY Rx Instructions: please discontinue any rx for calcitriol by an other doctors albuterol sulfate [Proventil HFA] 90 mcg/actuation HFA aerosol inhaler 2 puff inhalation Q6H PRN (Reason: shortness of breath or wheezing) Qty: 8.5 0RF clonazepam 1 mg tablet 1 mg PO BID Qty: 6 0RF pregabalin 75 mg capsule 75 mg PO TID Qty: 9 0RF levothyroxine 125 mcg tablet 125 mcg PO DAILY Qty: 90 0RF Referrals / Follow Up: Erica Richardson DO [Primary Care Provider] - Within 2 Weeks Disposition Disposition (needs filled in before D/C Order can be placed): Home Health Service Charges/Coding Visit Charges Inpatient E&M: 41113 Disch Hosp >30min 05/21/23 1034 <Electronically signed by Froy Velázquez DO> Cosigner Signature (if applicable): CC: Dr. Froy Velázquez DO; Dr. Erica Richardson DO~ Signed [facility] Work Phone: 1(451) 738-553601-30-2024 Progress note Author Froy Velázquez [facility] May 21, 2023 10:30am Note Date/Time May 21, 2023 8 :27am [facility] Medical Records Department [address] [place] [address] Progress Note - Hospitalist 05/21/23 0823 MR#: [id number] Acct: [id number] Name: AIDEN FIELDS Rep #:[id number] : 1945 77 From: Froy Velázquez DO PCP: Dr. Erica Richardson DO Status:ADM IN Location: [facility] [id number] Reason for Visit Reason for Visit: Diagnoses Unspecified infectious disease (05/19/23) Other encephalopathy (05/19/23) Subjective Subjective Feels well. Objective Data Objective Data Vital Signs: Vital Signs Temp Pulse Resp BP Pulse Ox O2 Del Method O2 Flow Rate 36.6 C 74 16 134/68 H 97 Room Air 2 05/21/23 02:05 05/21/23 02:05 05/21/23 02:05 05/21/23 02:05 05/21/23 02:05 05/21/23 07:52 05/19/23 08:00 FiO2 2 05/19/23 09:16 Oxygen Flow Rate (L/min) 2 Oxygen Delivery Method Room Air Weight: 74.865 kg Body Mass Index (BMI) 26.6 Intake & Output: Intake and Output for Last 24 Hours 05/19/23 05/20/23 05/21/23 23:59 23:59 23:59 Intake Total 5255 / 5255 950 / 950 50 / 50 Output Total 1750 / 2250 2200 / 2800 1100 / 1100 Balance 3505 / 3005 -1250 / -1850 -1050 / -1050 Lab / Micro Data 05/20/23 05:21 05/20/23 05:21 Labs: Laboratory Results - last 24 hr 05/19/23 06:10: Diff Path Review Reviewed 05/20/23 05:21: Diff Path Review Reviewed Micro: Microbiology 05/18/23 23:50 Blood Culture (Wb) - Left Hand Blood Culture - Final Escherichia coli 05/18/23 23:50 Urine, Catheterized Urine Culture - Final Presumptive E. coli 05/19/23 00:00 Urine, Clean Catch Legionella Antigen - Final 05/19/23 00:00 Urine, Clean Catch Streptococcus pneumoniae Antigen (M - Final 05/18/23 23:43 Mucosa - Nasopharyngeal SARS-CoV-2, Influenza & RSV (PCR) - Final Rhythm Strip Rhythm Strip: Sinus Tach Rate: 119 Physical Exam Const alert and no apparent distress HEENT head/scalp atraumatic Resp normal respiratory effort, no retractions, no use of accessory muscles and clearto auscultation bilaterally Cardio regular rate, regular rhythm, S1 normal heart sound and S2 normal heart sound GI normal to inspection, nondistended, normoactive bowel sounds Assessment & Plan Assessment/Plan (1) Encephalopathy due to infection: PLAN: Plan Acute transient encephalopathy, metabolic * suspected multifactorial, secondary to dementia and UTI and bacteremia. UTI * E. coli, christiansen-sensitive * on pip/tazo, change to levofloxacin for 7 more days. * dc levin catheter. check post-void residual. Bacteremia * BCx on 05/18 showing christiansen-sensitive E. coli * on pip/tazo * due to UTI. Acute kidney injury: * ruled out. Was not present on admission. No additional work up. Hyperglycemia: * No diabetic history per review of chart, admission glucose 134, possibly stress response, continue to trend and if further elevated low threshold to obtain hemoglobin A1c. Chronic conditions: * EtOH Abuse: Noted during prior admissions and patient has had significantly elevated alcohol levels previously, frequently denies but family has mentioned she is an alcoholic. Ethyl alcohol level pending as well as UDS upon presentation. Will maintain on CIWA protocol, MVI, thiamine and folic acid. Case management consulted. * Polysubstance abuse: Patient with previous admissions with positive opiate and also on a significant amount of benzodiazepines with also alcohol abuse, urine drug screen pending upon evaluation of patient. * Dementia, unclear type with unclear behavioral disturbance history: Complicates presentation, will continue patient home memantine home regimen, maintain on fall and aspiration precautions, therapies as well as case management consulted as noted. * Anxiety and depression: We will continue patient home BuSpar, clonazepam regimen to avoid any withdrawal however if any concerns for sedation low threshold to hold, continue patient home Seroquel low-dose regimen concurrently. * Chronic normocytic anemia: Admission hemoglobin 11.9, MCV 97.9, baseline hemoglobin similar, continue to trend. * Hypothyroidism: Will continue patient on levothyroxine regimen * GERD: We will continue patient home famotidine regimen. * Hypertension: BP low upon ED initial presentation and evaluation, will temporally hold amlodipine, resume once appropriate. * Hyperlipidemia: Not on statin per current regimen listed, defer to outpatient. * Questionable history of rheumatoid arthritis: Not on regimen, encourage continued outpatient follow-up with rheumatology as needed. DC home with [facility]. 05/21/23 1030 <Electronically signed by Froy Velázquez DO> Cosigner Signature (if applicable): CC: ~ Signed [facility] Work Phone: 1(251) 980-887601-29-2024 Progress note Author Froy Velázquez [facility] May 20, 2023 2:08pm Note Date/Time May 20, 2023 9 :07am [facility] Medical Records Department [address] [place] [address] Progress Note - Hospitalist 05/20/23 09 MR#: [id number] Acct: [id number] Name: AIDEN FIELDS Rep #:[id number] : 1945 77 From: Froy Velázquez DO PCP: Dr. Erica Richardson, DO Status:ADM IN Location: [facility] [id number] Subjective Subjective Feels well. No issues overnight. Objective Data Objective Data Vital Signs: Vital Signs Temp Pulse Resp BP Pulse Ox O2 Del Method O2 Flow Rate 37.6 C H 84 22 H 121/68 H 92 Room Air 2 05/20/23 04:47 05/20/23 04:47 05/20/23 04:47 05/20/23 04:47 05/20/23 04:47 05/20/23 04:47 05/19/23 08:00 FiO2 2 05/19/23 09:16 Oxygen Flow Rate (L/min) 2 Oxygen Delivery Method Room Air Weight: 75.5 kg Body Mass Index (BMI) 26.9 Intake & Output: Intake and Output for Last 24 Hours 05/18/23 05/19/23 05/20/23 23:59 23:59 23:59 Intake Total 5255 / 5255 250 / 250 Output Total 1750 / 2250 1300 / 1300 Balance 3505 / 3005 -1050 / -1050 Lab / Micro Data 05/20/23 05:21 05/20/23 05:21 Labs: Laboratory Results - last 24 hr 05/18/23 23:50: PT 16.0 H, INR 1.3, APTT 30.3 05/20/23 05:21: WBC 18.8 H, RBC 3.22 L, Hgb 10.1 L, Hct 32.0 L, MCV 99.4 H, MCH 31.4, MCHC 31.6 L, RDW Std Deviation 56.5 H, RDW Coeff of Felix 15.5 H, Plt Count 194, MPV 12.5 H, Immature Gran % (Auto) 0.600, Neut % (Auto) 76.9 H, Lymph % (Auto) 9.6 L, Gem % (Auto) 10.8 H, Eos % (Auto) 1.6, Baso % (Auto) 0.5, Absolute Neuts (auto) 14.5 H, Absolute Lymphs (auto) 1.81, Nucleated RBC % 0, Differential Comment SCANNED, Diff Path Review August, Sodium 142, Potassium 3.5, Chloride 113 H, Carbon Dioxide 17.0 L, Anion Gap 12, BUN 11, Creatinine 0.96, Estim Creat Clear Calc 51.68, Est GFR (MDRD) Af Amer 73, Est GFR (MDRD) Non-Af 60, BUN/Creatinine Ratio 11.5, Glucose 110 H, Calcium 7.6 L, Phosphorus 3.2, Magnesium 2.2 Micro: Microbiology 05/18/23 23:50 Urine, Catheterized Urine Culture - Preliminary Presumptive E. 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 Electronically Signed: Arpita Belcher MD at 9:59 EST Reading Location ID and State: [facility] / [place] Tel , Service support , Rhythm Strip Rhythm Strip: Sinus Tach Rate: 119 Physical Exam Const alert and no apparent distress Resp normal respiratory effort, no retractions, no use of accessory muscles and clearto auscultation bilaterally Cardio regular rate, regular rhythm, S1 normal heart sound and S2 normal heart sound GI normal to inspection, nondistended, normoactive bowel sounds, soft to palpation,non-tender and non-distended Neuro Sensorium / Orientation: awake and alert Psych affect normal Assessment & Plan Assessment/Plan (1) Encephalopathy due to infection: PLAN: Plan Acute transient encephalopathy, metabolic * suspected multifactorial, secondary to dementia and UTI UTI * suspected E. coli, sensitivities pending. * on pip/tazo Bacteremia * BCx on 05/18 showing GNR * on piptazo * suspect same organism as UTI. Acute kidney injury: * ruled out. Was not present on admission. No additional work up. Hyperglycemia: * No diabetic history per review of chart, admission glucose 134, possibly stress response, continue to trend and if further elevated low threshold to obtain hemoglobin A1c. Chronic conditions: * EtOH Abuse: Noted during prior admissions and patient has had significantly elevated alcohol levels previously, frequently denies but family has mentioned she is an alcoholic. Ethyl alcohol level pending as well as UDS upon presentation. Will maintain on CIWA protocol, MVI, thiamine and folic acid. Case management consulted. * Polysubstance abuse: Patient with previous admissions with positive opiate and also on a significant amount of benzodiazepines with also alcohol abuse, urine drug screen pending upon evaluation of patient. * Dementia, unclear type with unclear behavioral disturbance history: Complicates presentation, will continue patient home memantine home regimen, maintain on fall and aspiration precautions, therapies as well as case management consulted as noted. * Anxiety and depression: We will continue patient home BuSpar, clonazepam regimen to avoid any withdrawal however if any concerns for sedation low threshold to hold, continue patient home Seroquel low-dose regimen concurrently. * Chronic normocytic anemia: Admission hemoglobin 11.9, MCV 97.9, baseline hemoglobin similar, continue to trend. * Hypothyroidism: Will continue patient on levothyroxine regimen * GERD: We will continue patient home famotidine regimen. * Hypertension: BP low upon ED initial presentation and evaluation, will t emporally hold amlodipine, resume once appropriate. * Hyperlipidemia: Not on statin per current regimen listed, defer to outpatient. * Questionable history of rheumatoid arthritis: Not on regimen, encourage continued outpatient follow-up with rheumatology as needed. DVT prophylaxis: Heparin. Charges/Coding Visit Charges Inpatient E&M: 29664 Subs Hosp L2 05/20/23 1402 <Electronically signed by Froy Velázquez DO> Cosigner Signature (if applicable): CC: ~ Signed [facility] Work Phone: 1(221) 160-338301-28-2024 Progress note Author Vernon Osman [facility] May 19, 2023 8:02am Note Date/Time May 19, 2023 7 :06am [facility] System Medical Records Department [address] [place] [address] Progress Note 05/19/23 0706 MR#: [id number] Acct: [id number] Name: AIDEN FIELDS Rep #:[id number] : 1945 77 From: Vernon Osman MD PCP: Dr. Erica Richardson, DO Status:ADM [id number] Patient is a 77-year-old lady admitted with acute metabolic encephalopathy secondary to acute kidney injury, acute cystitis as well as suspected aspirationpneumonia. Patient admitted to regular nursing floor for subsequent management Patient seen and examined, initial assessment including history and physical diagnostic data and management orders reviewed will follow. 05/19/23 0802 <Electronically signed by Vernon Osman MD> Vernon Osman MD Cosigner Signature (if applicable): CC: ~ Signed [facility] Work Phone: 1(434) 821-136001-28-2024 Discharge summary Author [facility] May 19, 2023 2:16am Note Date/Time May 19, 2023 1 2:30am [facility] System Medical Records Department [address] [place] [address] Emergency Department Summary 05/19/23 MR#: [id number] Acct: [id number] Name: AIDEN FIELDS Rep #:[id number] : 1945 77 From: Jorge Cardona MD PCP: Dr. Erica Richardson, DO Status:REG ER Location: ED HPI History of Present Illness Chief Complaint: Alt LOC Detail of Chief Complaint: Altered mental status Informant: EMS Onset/Context/Timing Onset: - (Unknown) Quality: Call to EMS was stroke. Patient is tachycardic, tachypneic, febrile and hy Location: Presents from home Current Severity: Unable to determine Maximum Severity: Unable to determine Worsened by: Unable to determine Relieved by: Unable to determine Associated Symptoms Associated Symptoms: Unable to determine Narrative Narrative: Patient is a 77-year-old woman. She has history of hypothyroidism, hypertensionwho presents by ambulance because of altered mental status. She is disoriented to place and time. She responds to her name. History is very limited. Paramedics states she was vomiting. This raises concern for aspiration in lightof her vital signs. Review of prior records indicates patient does have history of alcohol use. Shemay possibly also have history of drug use. Prior similar symptoms: Yes (Most recent admission for hypoxia due to rhinovirus.) [facility] Medical History (Updated 05/19/23 @ 02:[address] 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 procedure Hypothyroidism Melanoma Multiple rib fractures Opioid dependence Rheumatoid arthritis Skin cancer Subdural hematoma Tobacco abuse Vitamin D deficiency Home Medications potassium chloride 20 mEq tablet,extended release(part/cryst) 40 meq PO DAILY SUPPLEMENT 08/01/20 [History Last Taken 11/22/22] valacyclovir 1 gram tablet 1,000 mg PO DAILY SHINGLES 08/01/20 [History Last Taken 11/22/22] dexamethasone sodium phosphate 0.1 % eye drops 1 drp ophthalmic (eye) DAILY glaucoma 03/09/21 [History Last Taken 11/22/22] hydrocodone 10 mg-acetaminophen 325 mg tablet 1 tab PO Q6H PAIN 06/11/21 [History Last Taken 11/22/22] clonazepam 1 mg tablet 1 mg PO BID #6 tabs 03/03/22 [Rx Last Taken 11/22/22] pregabalin 75 mg capsule 75 mg PO TID PAIN #9 caps 03/03/22 [Rx Last Taken 11/22/22] amlodipine 5 mg tablet 5 mg PO DAILY 11/22/22 [History Last Taken 11/22/22] calcitriol 0.5 mcg capsule 0.5 mcg PO DAILY 11/22/22 [History Last Taken 11/22/22] cholecalciferol (vitamin D3) 25 mcg (1,000 unit) capsule 25 mcg PO DAILY SUPPLEMENT 11/22/22 [History Last Taken 11/22/22] escitalopram oxalate 10 mg tablet (Lexapro) 10 mg PO DAILY ANXIETY 11/22/22 [History Last Taken 11/22/22] magnesium oxide 500 mg PO DAILY SUPPLEMENT 11/22/22 [History Last Taken 11/22/22] meclizine 25 mg tablet 25 mg PO TID Dizziness 11/22/22 [History Last Taken 11/22/22] memantine 5 mg tablet 5 mg PO BID 11/22/22 [History Last Taken 11/22/22] nabumetone 750 mg tablet 750 mg PO BID 11/22/22 [History Last Taken 11/22/22] quetiapine 100 mg tablet 25 mg PO DAILY DEPRESSION 11/22/22 [History Last Taken 11/22/22] albuterol sulfate 90 mcg/actuation aerosol inhaler (Proventil HFA) 2 puff inhalation Q6H PRN shortness of breath or wheezing #8.5 grams 11/23/22 [Rx Last Taken Unknown] levothyroxine 125 mcg tablet 125 mcg PO DAILY #90 tabs 02/19/23 [Rx Last Taken Unknown] acetaminophen 500 mg capsule 500 mg PO BID 05/19/23 [History Last Taken Unknown] famotidine 20 mg tablet (Pepcid) 20 mg PO QHS 05/19/23 [History Last Taken Unknown] polyethylene glycol 3350 17 gram/dose oral powder (ClearLax) 17 g PO DAILY 05/19/23 [History Last Taken Unknown] pyridoxine (vitamin B6) 100 mg tablet 100 mg PO DAILY 05/19/23 [History Last Taken Unknown] Allergy/AdvReac Type Severity Reaction Status Date / Time bacitracin Allergy Unknown Unknown Verified 05/18/23 23:29 [From Neosporin ([id number])] neomycin Allergy Unknown Unknown Verified 05/18/23 23:29 [From Neosporin ([id number])] polymyxin B Allergy Unknown Unknown Verified 05/18/23 23:29 [From Neosporin ([id number])] Antihistamines - Alkylamine Allergy PT UNSURE Verified 05/18/23 23:29 OF REACTION diphenhydramine Allergy PT UNSURE Verified 05/18/23 23:29 [From Benadryl] OF REACTION Family History Unknown Thyroid disorder Cancer High cholesterol Arthritis Mother Cancer Diabetes Father , Father at the age of 50 from successful suicide attempt. Suicidal intent Other Alcohol abuse Anxiety Depression Heart disease Hypertension Mental disorder Parkinson disease Psychiatric care Surgical History H/O mastectomy H/O thyroidectomy Status post glaucoma surgery Social History (Updated 01/28/24 @ 01:[address] Aggie Bolton MD) household members: none Smoking Status: Former smoker second hand exposure: Yes alcohol intake: current alcohol intake frequency: 3 or more drinks per day substance use type: does not use ROS ROS ED Review of Systems ROS Unobtainable: due to mental status EXAM Physical Exam Const Vital Signs: 05/18/23 23:28 05/18/23 23:32 05/18/23 23:52 Temperature 101 F H Temperature Source Temporal Pulse Rate 113 H Respiratory Rate 23 H Blood Pressure 129/62 H Blood Pressure Mean 84 Pulse Ox 85 94 94 Oxygen Delivery Method Room Air Nasal Cannula Nasal Cannula Oxygen Flow Rate (L/min) 3 3 05/19/23 00:28 05/19/23 00:32 05/19/23 01:17 Temperature 99.6 F H 98.2 F Temperature Source Oral Oral Pulse Rate 103 H 100 95 Respiratory Rate 22 H 24 H 20 H Blood Pressure 115/60 115/60 99/55 L Blood Pressure Mean 78 78 69 Pulse Ox 95 95 95 Oxygen Delivery Method Nasal Cannula Nasal Cannula Nasal Cannula Oxygen Flow Rate (L/min) 3 3 3 05/19/23 01:46 Temperature 99.3 F H Temperature Source Pulse Rate 94 Respiratory Rate 20 H Blood Pressure 103/54 L Blood Pressure Mean 70 Pulse Ox 95 Oxygen Delivery Method Oxygen Flow Rate (L/min) Positive well nourished and well developed Constitutional Narrative: Patient was cyanotic when her pulse ox was 85%. She is leaning to the right. She is not awake nor is she alert. General Appearance ED: well developed, cyanotic and NAD; Negative for diaphoretic or pallor HEENT Reports dry mucous membranes HEENT Narrative: Head is atraumatic and normocephalic. Ears are normal. TMs are normal. Posterior pharynx out erythema exam. Nares patent. Mouth ED: Yes dry mucous membranes Mouth: dry mucous membranes Eyes PERRL and EOMs intact bilaterally General Eye ED: Negative for pale conjunctiva or scleral icterus Neck no lymphadenopathy, supple and no JVD Chest Wall inspection of chest normal and palpation of chest normal Resp No normal respiratory effort and No clear to auscultation bilaterally Auscultation: rales diffuse (Lower lung hurst bilaterally) Cardio regular rhythm, S1 normal heart sound, S2 normal heart sound and no murmurs Rate: tachycardic GI normal to inspection, nondistended, normoactive bowel sounds, non-tender and non-distended Extremity normal to inspection Extremity Narrative: There is no acral cyanosis. There is no clubbing. Neuro No oriented x3 Sensorium / Orientation: Negative for alert Psych Psych Narrative: Unable to assess Skin no rashes or lesions noted, no wounds and No skin turgor normal General Skin Exam: Negative for jaundice or pallor Sepsis Attestation Sepsis Alert: Yes Sepsis Attestation: Agree w/Sepsis Date exam was performed: 05/18/23 Time exam was performed: 23:35 Possible Source of Sepsis: Pulmonary MDM MDM MDM Narrative Medical decision making narrative: Sepsis order set and treatment was initiated for community-acquired pneumonia. Since patient has bilateral rales and is not clinically fluid overloaded suspectshe has pneumonia. Would not anticipate rales bilaterally this is due to aspiration. COVID influenza RSV panel was ordered. She did receive a fluid bolus. Appropriate blood work was obtained to assess for endorgan dysfunction. Since her chest x-ray was unremarkable added a talk screen and alcohol level in light of her past history of benzodiazepine and alcohol use. History & Record Review Additional record(s) reviewed:: Prior inpatient record (Admission for hypoxia due to rhinovirus several months ago.), Prior ED visit (For multiple different things which included humeral fracture, upper respiratory infection etc.) and Prior labs Lab Data Attestation: I reviewed the patient's lab results. Lab results narrative: White count is elevated 15-200 with shift. There is 90% segs. Is no bandemia. Patient does have evidence of anemia with an H&H 11.9 and 36.7 with normal indices. Competence of metabolic panel reveals an elevated creatinine from baseline, 1.2 to with an estimated GFR of 46. Glucose is slightly elevated 134 with a normal CO2 and anion gap. Total bili slightly elevated. Transaminases are normal. Urinalysis is remarkable for ketones, occult blood, nitrites and leukoesterase on macro. There is 10-25 RBCs with greater than 100 WBCs; however, there are no bacteria seen. Culture was sent. Lactate is normal. Tox is positive for opiates. Alcohol was not detected. Rapid antigen for COVID, influenza and RSV were negative. Labs: Laboratory Results - last 24 hr 05/18/23 05/19/23 23:50 00:34 WBC 15.2 H RBC 3.75 L Hgb 11.9 L Hct 36.7 L MCV 97.9 MCH 31.7 MCHC 32.4 RDW Std Deviation 54.4 H RDW Coeff of Felix 15.1 H Plt Count 199 MPV 12.5 H Immature Gran % (Auto) 0.700 Neut % (Auto) 89.8 H Lymph % (Auto) 6.3 L Gem % (Auto) 2.4 Eos % (Auto) 0.3 Baso % (Auto) 0.5 Absolute Neuts (auto) 13.7 H Absolute Lymphs (auto) 0.96 Nucleated RBC % 0 Sodium 139 Potassium 3.8 Chloride 109 H Carbon Dioxide 24.0 Anion Gap 6 BUN 23 H Creatinine 1.22 H Estim Creat Clear Calc 40.12 Est GFR (MDRD) Af Amer 55 L Est GFR (MDRD) Non-Af 46 L BUN/Creatinine Ratio 18.9 Glucose 134 H Lactic Acid 1.7 Calcium 8.6 Total Bilirubin 1.40 H AST 22 ALT 17 Alkaline Phosphatase 116 Total Protein 7.5 Albumin 3.2 Globulin 4.3 H Albumin/Globulin Ratio 0.7 L Urine Color Yellow Urine Clarity Cloudy Urine pH 6.0 Ur Specific Candor 1.010 Urine Protein 100 H Urine Glucose (UA) Normal Urine Ketones 5 H Urine Occult Blood 50 H Urine Nitrite Positive H Urine Bilirubin Negative Urine Urobilinogen Normal Ur Leukocyte Esterase 500 H Urine RBC 10-25 SEEN Urine WBC >100 SEEN Ur Squamous Epith Cells 0 SEEN Urine Bacteria 0 SEEN Urine Mucus 0 SEEN Urine Opiates Screen POSITIVE H Urine Methadone Screen NEGATIVE Ur Barbiturates Screen NEGATIVE Ur Phencyclidine Scrn NEGATIVE Ur Amphetamines Screen NEGATIVE MDMA (Ecstasy) Screen NEGATIVE U Benzodiazepines Scrn NEGATIVE Urine Cocaine Screen NEGATIVE U Cannabinoids Screen NEGATIVE Ur Drug Screen Comment Ethyl Alcohol < 3.0 Radiography Chest X-Ray - ED: 1 View and Read by ED Physician (Patient is rotated and tiltedto the right. Hardware noted for prior rib fractures on the left. Cardiac sizeand silhouette are normal. Mediastinum is unremarkable. There is no effusion or pneumothorax noted. There is no acute abnormality of the osseous structures. There is independent reviewe) Diagnostic Testing: Clinical Impression(s) from Imaging Studies Chest X-Ray 05/18/23 23:55 IMPRESSION: No evidence of acute cardiopulmonary disease. Electronically Signed: Eliel Christensen DO at 0:46 EST , Radiology report was reviewed. Rhythm Strip Rhythm Strip: Sinus Tach Rate: 119 EKG Initial EKG: Attestation: I personally reviewed and interpreted this EKG as follows: Interpretation: Sinus Tachycardia (Rate is 111. SC interval is 114 ms. Cures duration 70 ms. QT duration is 298 ms. [place] is normal. Computer is reading ST-T wave abnormality which is in all likelihood artifact.) Management Discussion w/another healthcare provider: Hospitalist (Hospitalist was paged to discuss patient's history physical and admission. She was informed to the patient earlier however laboratory results had not returned.) Treatment and Re-Evaluation :: Patient received fluid bolus since there is been a drop in blood pressure. Send 0117 indicated blood pressure 99/55, pulse of 95, respiration of 20 and temperature of 98.2. In light of the drop in pressure will administer additional fluid bolus since there is no history of congestive heart failure. Patient's blood pressure did respond to IV fluids. Critical Care Time Critical Care Time: Yes Critical care time (excluding procedures): 30-74 minutes (22), Including time spent: (History, physical, documentation, review of prior records, independent interpretation of laboratory results and assessed [place] with treatment for hypertension), Discussing w/Patient &/or Family/Car Dropper, Discussing w/Consultants and Arranging Admission or Transfer Discharge Plan Dx/Rx/DC Orders Clinical Impression: Acute hypoxic respiratory failure, Pyuria, SIRS (systemic inflammatory responsesyndrome), Encephalopathy due to infection, Ketosis, Acute hypotension, Creatinine elevation Disposition Disposition: Acute Care Hospital [facility] What to do if you have Problems For any increased pain, shortness of breath, bleeding, nausea or vomiting, chestpain, or any unexpected problems, contact your Primary Care Provider. Call [facility] ([phone]) or report to the closest Emergency Room. Call 911 if necessary. 05/19/23 0216 <Electronically signed by Jorge Cardona MD> Cosigner Signature (if applicable): CC: Dr. Erica Richardson, ~ Signed [facility] Work Phone: 1(832) 650-123201-28-2024 History and physical note Author Aggie Bolton [facility] May 19, 2023 1:45am Note Date/Time May 19, 2023 1 :39am [facility] Medical Records Department [address] [place] [address] H&P Exam - Hospitalist 05/19/23 0135 MR#: [id number] Acct: [id number] Name: AIDEN FIELDS Rep #:[id number] : 1945 77 From: Aggie Bolton MD PCP: Dr. Erica Richardson, DO Status:REG ER Location: ED HPI - General General Date of Admission: 05/19/23 Date of Service: 05/19/23 Chief Complaint: Encephalopathy. HPI Narrative The patient is a 74 y/o F w/ PMHx: Dementia unclear type with unclear behavioraldisturbance history, Chronic anemia, Hx Breast CA s/p mastectomy, HTN, HLD, Rheumatoid arthritis, Hypothyroidism, Anxiety and Depression, EtOH abuse/Polysubstance dependency including BZD/opiates per review of prior records who presents to the [facility] ED on 05/19/23 with significant encephalopathy with limited responses to staff initially with noted emesis on route with patient initially significantly tachypneic, tachycardic and febrile with initial evaluation per ED physician with significant rales bilaterally however patient quickly improved and became more alert with denied recent history of fever, chills, upper respiratory type infections, nausea, vomiting or diarrhea or any urinary type symptoms. Patient denies any recent ill contacts. Patient caregiver present notes this is her baseline currently she appears much better. Workup in the ED included initially T101, heart rate 113, BP 129/62, respiratoryrate 23, initially 85% on room air with most recent vital signs improved with T98.2, heart rate 95, BP 99/55, respiratory rate 20, 95% on 3 L nasal cannula, CBC with WBC 15.2, hemoglobin 1.9, MCV 97.9, platelet 199 with left shift, CMP with chloride 109, BUN/creatinine 23/1.22, glucose 134, lactic acid 1.7, hepaticprofile with T. bili 1.40 otherwise unremarkable, urinalysis with noted cloudy urine, protein 100, ketone 5, occult blood 50, positive nitrite, leukocyte esterase 500, urine RBCs 10-25, urine WBCs greater than 100, UDS pending upon evaluation of patient, acetaminophen level, urine opiate screen, urine methadonescreen, ethyl alcohol levels pending upon evaluation, chest x-ray with no acute cardiopulmonary findings, urine culture pending per ED, blood culture x 2 pending per ED, rapid SARS COVID/influenza/RSV PCR pending upon requested evaluation of patient, EKG with sinus tachycardia. In the ED patient ministered1 L normal saline as well as IV Rocephin and azithromycin 500 mg IV x 1. [facility] Medical History (Updated 05/19/23 @ 01:[address] 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 procedure Hypothyroidism Melanoma Multiple rib fractures Opioid dependence Rheumatoid arthritis Skin cancer Subdural hematoma Tobacco abuse Vitamin D deficiency Home Medications potassium chloride 20 mEq tablet,extended release(part/cryst) 40 meq PO DAILY SUPPLEMENT 08/01/20 [History Last Taken 11/22/22] valacyclovir 1 gram tablet 1,000 mg PO DAILY SHINGLES 08/01/20 [History Last Taken 11/22/22] dexamethasone sodium phosphate 0.1 % eye drops 1 drp ophthalmic (eye) DAILY glaucoma 03/09/21 [History Last Taken 11/22/22] hydrocodone 10 mg-acetaminophen 325 mg tablet 1 tab PO Q6H PAIN 06/11/21 [History Last Taken 11/22/22] clonazepam 1 mg tablet 1 mg PO BID #6 tabs 03/03/22 [Rx Last Taken 11/22/22] pregabalin 75 mg capsule 75 mg PO TID PAIN #9 caps 03/03/22 [Rx Last Taken 11/22/22] amlodipine 5 mg tablet 5 mg PO DAILY 11/22/22 [History Last Taken 11/22/22] calcitriol 0.5 mcg capsule 0.5 mcg PO DAILY 11/22/22 [History Last Taken 11/22/22] cholecalciferol (vitamin D3) 25 mcg (1,000 unit) capsule 25 mcg PO DAILY SUPPLEMENT 11/22/22 [History Last Taken 11/22/22] escitalopram oxalate 10 mg tablet (Lexapro) 10 mg PO DAILY ANXIETY 11/22/22 [History Last Taken 11/22/22] magnesium oxide 500 mg PO DAILY SUPPLEMENT 11/22/22 [History Last Taken 11/22/22] meclizine 25 mg tablet 25 mg PO TID Dizziness 11/22/22 [History Last Taken 11/22/22] memantine 5 mg tablet 5 mg PO BID 11/22/22 [History Last Taken 11/22/22] nabumetone 750 mg tablet 750 mg PO BID 11/22/22 [History Last Taken 11/22/22] quetiapine 100 mg tablet 25 mg PO DAILY DEPRESSION 11/22/22 [History Last Taken 11/22/22] albuterol sulfate 90 mcg/actuation aerosol inhaler (Proventil HFA) 2 puff inhalation Q6H PRN shortness of breath or wheezing #8.5 grams 11/23/22 [Rx Last Taken Unknown] levothyroxine 125 mcg tablet 125 mcg PO DAILY #90 tabs 02/19/23 [Rx Last Taken Unknown] acetaminophen 500 mg capsule 500 mg PO BID 05/19/23 [History Last Taken Unknown] famotidine 20 mg tablet (Pepcid) 20 mg PO QHS 05/19/23 [History Last Taken Unknown] polyethylene glycol 3350 17 gram/dose oral powder (ClearLax) 17 g PO DAILY 05/19/23 [History Last Taken Unknown] pyridoxine (vitamin B6) 100 mg tablet 100 mg PO DAILY 05/19/23 [History Last Taken Unknown] Allergy/AdvReac Type Severity Reaction Status Date / Time bacitracin Allergy Unknown Unknown Verified 05/18/23 23:29 [From Neosporin ([id number])] neomycin Allergy Unknown Unknown Verified 05/18/23 23:29 [From Neosporin ([id number])] polymyxin B Allergy Unknown Unknown Verified 05/18/23 23:29 [From Neosporin ([id number])] Antihistamines - Alkylamine Allergy PT UNSURE Verified 05/18/23 23:29 OF REACTION diphenhydramine Allergy PT UNSURE Verified 05/18/23 23:29 [From Benadryl] OF REACTION Family History Unknown Thyroid disorder Cancer High cholesterol Arthritis Mother Cancer Diabetes Father , Father at the age of 50 from successful suicide attempt. Suicidal intent Other Alcohol abuse Anxiety Depression Heart disease Hypertension Mental disorder Parkinson disease Psychiatric care Surgical History H/O mastectomy H/O thyroidectomy Status post glaucoma surgery Social History (Updated 05/19/23 @ 01:[address] Aggie Bolton MD) household members: none Smoking Status: Former smoker second hand exposure: Yes alcohol intake: current alcohol intake frequency: 3 or more drinks per day substance use type: does not use ROS Review of Systems ROS Unobtainable: due to encephalopathy Vital Signs Vital Signs Vital Signs: 05/18/23 23:28 05/18/23 23:32 05/18/23 23:52 Temperature 101 F H Temperature Source Temporal Pulse Rate 113 H Respiratory Rate 23 H Blood Pressure 129/62 H Blood Pressure Mean 84 Pulse Ox 85 94 94 Oxygen Delivery Method Room Air Nasal Cannula Nasal Cannula Oxygen Flow Rate (L/min) 3 3 05/19/23 00:28 05/19/23 00:32 05/19/23 01:17 Temperature 99.6 F H 98.2 F Temperature Source Oral Oral Pulse Rate 103 H 100 95 Respiratory Rate 22 H 24 H 20 H Blood Pressure 115/60 115/60 99/55 L Blood Pressure Mean 78 78 69 Pulse Ox 95 95 95 Oxygen Delivery Method Nasal Cannula Nasal Cannula Nasal Cannula Oxygen Flow Rate (L/min) 3 3 3 Weight Weight: 160 lb 14.999 oz Body Mass Index (BMI) 25.9 Physical Exam Narrative Physical Examination: General: Arousing, notably improved since initial ED arrival, now alert to self and recent events, remains cooperative, seated upright in ED bed, no acute distress, vital signs improving. Skin: normal color, turgor, no icterus, cyanosis except occasional staged ecchymoses. HEENT: AT/NC, EOMI, PERRLA, dry MM, no carotid bruits or JVD noted, chronic right head tilt. Lungs: Diminished breath sounds, greater bases, moderate decrease BL bases, previous significant rales bilaterally reported per ED physician upon arrival, currently improved, no obvious rhonchi or wheezing. Heart: Mildly tachycardic with regular rhythm; no gallop, rub audible. Abdomen: soft, overweight, NTTP, ND, distant normal BS, no appreciated HSM. Extremities: no cyanosis, no clubbing, mild bilateral pedal to distal vega edema. Neurological: patient improving, currently awakens and more alert, oriented as noted; cognitive function improving, suspect nearing baseline; pupils equally reactive to light and accomodation; cranial nerves grossly normal, moving all 4 extremities, no focal deficits, strength moderately to severely globally decreased secondary to acute presentation. Psychiatric: affect appears fatigued otherwise normal, no acute evidence of depressive or anxiety feelings but does have underlying history. Results Lab / Micro Data 05/18/23 23:50 05/18/23 23:50 Labs: Laboratory Results - last 24 hr 05/18/23 23:50: WBC 15.2 H, RBC 3.75 L, Hgb 11.9 L, Hct 36.7 L, MCV 97.9, MCH 31.7, MCHC 32.4, RDW Std Deviation 54.4 H, RDW Coeff of Felix 15.1 H, Plt Count 199, MPV 12.5 H, Immature Gran % (Auto) 0.700, Neut % (Auto) 89.8 H, Lymph % (Auto) 6.3 L, Gem % (Auto) 2.4, Eos % (Auto) 0.3, Baso % (Auto) 0.5, Absolute Neuts (auto) 13.7 H, Absolute Lymphs (auto) 0.96, Nucleated RBC % 0, Sodium 139,Potassium 3.8, Chloride 109 H, Carbon Dioxide 24.0, Anion Gap 6, BUN 23 H, Creatinine 1.22 H, Estim Creat Clear Calc 40.12, Est GFR (MDRD) Af Amer 55 L, Est GFR (MDRD) Non-Af 46 L, BUN/Creatinine Ratio 18.9, Glucose 134 H, Lactic Acid 1.7, Calcium 8.6, Total Bilirubin 1.40 H, AST 22, ALT 17, Alkaline Phosphatase 116, Total Protein 7.5, Albumin 3.2, Globulin 4.3 H, Albumin/Globulin Ratio 0.7 L, Urine Color Yellow, Urine Clarity Cloudy, Urine pH6.0, Ur Specific Candor 1.010, Urine Protein 100 H, Urine Glucose (UA) Normal, Urine Ketones 5 H, Urine Occult Blood 50 H, Urine Nitrite Positive H, Urine Bilirubin Negative, Urine Urobilinogen Normal, Ur Leukocyte Esterase 500 H, Urine RBC 10-25 SEEN, Urine WBC >100 SEEN, Ur Squamous Epith Cells 0 SEEN, UrineBacteria 0 SEEN, Urine Mucus 0 SEEN, Urine Opiates Screen POSITIVE H, Urine Methadone Screen NEGATIVE, Ur Barbiturates Screen NEGATIVE, Ur Phencyclidine Scrn NEGATIVE, Ur Amphetamines Screen NEGATIVE, MDMA (Ecstasy) Screen NEGATIVE, U Benzodiazepines Scrn NEGATIVE, Urine Cocaine Screen NEGATIVE, U Cannabinoids Screen NEGATIVE, Ur Drug Screen Comment 05/19/23 00:34: Ethyl Alcohol < 3.0 Rhythm Strip Rhythm Strip: Sinus Tach Rate: 119 Imaging Radiology Impression Chest X-Ray 05/18/23 23:55 IMPRESSION: No evidence of acute cardiopulmonary disease. Electronically Signed: Eliel Christensen, DO at 0:46 EST , Assessment & Plan Assessment/Plan (1) Encephalopathy due to infection: PLAN: Plan The patient is a 74 y/o F w/ PMHx: Dementia unclear type with unclear behavioraldisturbance history, Chronic anemia, Hx Breast CA s/p mastectomy, HTN, HLD, Rheumatoid arthritis, Hypothyroidism, Anxiety and Depression, EtOH abuse/Polysubstance dependency including BZD/opiates per review of prior recordswho presents to the [facility] ED on 05/19/23 with significant encephalopathy with limited responses to staff initially with noted emesis on route with patient initially significantly tachypneic, tachycardic and febrile with initial evaluation per ED physician with significant rales bilaterally however patient quickly improved and became more alert with denied recent history of fever, chills, upper respiratory type infections, nausea, vomiting or diarrhea or any urinary type symptoms. #1. Acute transient encephalopathy suspected multifactorial, secondary to acutehypoxia suspected secondary to aspiration event in addition to acute pyuria, complicated urinary tract infection: Will admit to MS given stable VS, maintain on oxygen with wean as tolerated to room air, continue ATC budesonide, PRN albuterol, maintain on IV Zosyn given aspiration concerns and UTI concerns, willplan repeat CXR in AM, HOB, IS parameters, UCx pending, PT/OT/CM consulted for discharge planning. #2. Acute kidney injury: Secondary to acute presentation as noted. Admission BUN/Cr 23/1.22, prior baseline creatinine noted to be primarily 0.5. Will judiciously hydrate, hold nephrotoxic medications and repeat chemistry in AM. Ifno improvement would plan FeNa and renal ultrasound assessment. #3. Hyperglycemia: No diabetic history per review of chart, admission glucose 134, possibly stress response, continue to trend and if further elevated low threshold to obtain hemoglobin A1c. #4. EtOH Abuse: Noted during prior admissions and patient has had significantlyelevated alcohol levels previously, frequently denies but family has mentioned she is an alcoholic. Ethyl alcohol level pending as well as UDS upon presentation. Will maintain on CIWA protocol, MVI, thiamine and folic acid. Case management consulted. #5. Polysubstance abuse: Patient with previous admissions with positive opiate and also on a significant amount of benzodiazepines with also alcohol abuse, urine drug screen pending upon evaluation of patient. #6. Dementia, unclear type with unclear behavioral disturbance history: Complicates presentation, will continue patient home memantine home regimen, maintain on fall and aspiration precautions, therapies as well as case management consulted as noted. #7. Anxiety and depression: We will continue patient home BuSpar, clonazepam regimen to avoid any withdrawal however if any concerns for sedation low threshold to hold, continue patient home Seroquel low-dose regimen concurrently. #8. Chronic normocytic anemia: Admission hemoglobin 11.9, MCV 97.9, baseline hemoglobin similar, continue to trend. #9. Hypothyroidism: Will continue patient on levothyroxine regimen #10. GERD: We will continue patient home famotidine regimen. #11. Hypertension: BP low upon ED initial presentation and evaluation, will temporally hold amlodipine, resume once appropriate. #12. Hyperlipidemia: Not on statin per current regimen listed, defer to outpatient. #13. Questionable history of rheumatoid arthritis: Not on regimen, encourage continued outpatient follow-up with rheumatology as needed. #14. DVT prophylaxis: Heparin. Charges/Coding Visit Charges Inpatient E&M: 81921 Init Hosp L3 05/19/23 0145 <Electronically signed by Aggie Bolton MD> Cosigner Signature (if applicable): CC: Dr. Aggie Bolton MD; Dr. Erica Richardson DO~ Signed [facility] Work Phone: 1(994) 412-176101-28-2024 Discharge summary Author Jorge Cardona [facility] May 19, 2023 2:16am Note Date/Time May 19, 2023 1 2:30am [facility] Medical Records Department [address] [place] [address] Emergency Department Summary 05/19/23 MR#: [id number] Acct: [id number] Name: AIDEN FIELDS Rep #:[id number] : 1945 77 From: Jorge Cardona MD PCP: Dr. Erica Richardson, DO Status:REG ER Location: ED HPI History of Present Illness Chief Complaint: Alt LOC Detail of Chief Complaint: Altered mental status Informant: EMS Onset/Context/Timing Onset: - (Unknown) Quality: Call to EMS was stroke. Patient is tachycardic, tachypneic, febrile and hy Location: Presents from home Current Severity: Unable to determine Maximum Severity: Unable to determine Worsened by: Unable to determine Relieved by: Unable to determine Associated Symptoms Associated Symptoms: Unable to determine Narrative Narrative: Patient is a 77-year-old woman. She has history of hypothyroidism, hypertensionwho presents by ambulance because of altered mental status. She is disoriented to place and time. She responds to her name. History is very limited. Paramedics states she was vomiting. This raises concern for aspiration in lightof her vital signs. Review of prior records indicates patient does have history of alcohol use. Shemay possibly also have history of drug use. Prior similar symptoms: Yes (Most recent admission for hypoxia due to rhinovirus.) Recent Illness/Hospitalization: No PFSH [facility] Medical History (Updated 05/19/23 @ 02:[address] 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 procedure Hypothyroidism Melanoma Multiple rib fractures Opioid dependence Rheumatoid arthritis Skin cancer Subdural hematoma Tobacco abuse Vitamin D deficiency Home Medications potassium chloride 20 mEq tablet,extended release(part/cryst) 40 meq PO DAILY SUPPLEMENT 08/01/20 [History Last Taken 11/22/22] valacyclovir 1 gram tablet 1,000 mg PO DAILY SHINGLES 08/01/20 [History Last Taken 11/22/22] dexamethasone sodium phosphate 0.1 % eye drops 1 drp ophthalmic (eye) DAILY glaucoma 03/09/21 [History Last Taken 11/22/22] hydrocodone 10 mg-acetaminophen 325 mg tablet 1 tab PO Q6H PAIN 06/11/21 [History Last Taken 11/22/22] clonazepam 1 mg tablet 1 mg PO BID #6 tabs 03/03/22 [Rx Last Taken 11/22/22] pregabalin 75 mg capsule 75 mg PO TID PAIN #9 caps 03/03/22 [Rx Last Taken 11/22/22] amlodipine 5 mg tablet 5 mg PO DAILY 11/22/22 [History Last Taken 11/22/22] calcitriol 0.5 mcg capsule 0.5 mcg PO DAILY 11/22/22 [History Last Taken 11/22/22] cholecalciferol (vitamin D3) 25 mcg (1,000 unit) capsule 25 mcg PO DAILY SUPPLEMENT 11/22/22 [History Last Taken 11/22/22] escitalopram oxalate 10 mg tablet (Lexapro) 10 mg PO DAILY ANXIETY 11/22/22 [History Last Taken 11/22/22] magnesium oxide 500 mg PO DAILY SUPPLEMENT 11/22/22 [History Last Taken 11/22/22] meclizine 25 mg tablet 25 mg PO TID Dizziness 11/22/22 [History Last Taken 11/22/22] memantine 5 mg tablet 5 mg PO BID 11/22/22 [History Last Taken 11/22/22] nabumetone 750 mg tablet 750 mg PO BID 11/22/22 [History Last Taken 11/22/22] quetiapine 100 mg tablet 25 mg PO DAILY DEPRESSION 11/22/22 [History Last Taken 11/22/22] albuterol sulfate 90 mcg/actuation aerosol inhaler (Proventil HFA) 2 puff inhalation Q6H PRN shortness of breath or wheezing #8.5 grams 11/23/22 [Rx Last Taken Unknown] levothyroxine 125 mcg tablet 125 mcg PO DAILY #90 tabs 02/19/23 [Rx Last Taken Unknown] acetaminophen 500 mg capsule 500 mg PO BID 05/19/23 [History Last Taken Unknown] famotidine 20 mg tablet (Pepcid) 20 mg PO QHS 05/19/23 [History Last Taken Unknown] polyethylene glycol 3350 17 gram/dose oral powder (ClearLax) 17 g PO DAILY 05/19/23 [History Last Taken Unknown] pyridoxine (vitamin B6) 100 mg tablet 100 mg PO DAILY 05/19/23 [History Last Taken Unknown] Allergy/AdvReac Type Severity Reaction Status Date / Time bacitracin Allergy Unknown Unknown Verified 05/18/23 23:29 [From Neosporin ([id number])] neomycin Allergy Unknown Unknown Verified 05/18/23 23:29 [From Neosporin ([id number])] polymyxin B Allergy Unknown Unknown Verified 05/18/23 23:29 [From Neosporin ([id number])] Antihistamines - Alkylamine Allergy PT UNSURE Verified 05/18/23 23:29 OF REACTION diphenhydramine Allergy PT UNSURE Verified 05/18/23 23:29 [From Benadryl] OF REACTION Family History Unknown Thyroid disorder Cancer High cholesterol Arthritis Mother Cancer Diabetes Father , Father at the age of 50 from successful suicide attempt. Suicidal intent Other Alcohol abuse Anxiety Depression Heart disease Hypertension Mental disorder Parkinson disease Psychiatric care Surgical History H/O mastectomy H/O thyroidectomy Status post glaucoma surgery Social History (Updated 05/19/23 @ 01:[address] Aggie Bolton MD) household members: none Smoking Status: Former smoker second hand exposure: Yes alcohol intake: current alcohol intake frequency: 3 or more drinks per day substance use type: does not use ROS ROS ED Review of Systems ROS Unobtainable: due to mental status EXAM Physical Exam Const Vital Signs: 05/18/23 23:28 05/18/23 23:32 05/18/23 23:52 Temperature 101 F H Temperature Source Temporal Pulse Rate 113 H Respiratory Rate 23 H Blood Pressure 129/62 H Blood Pressure Mean 84 Pulse Ox 85 94 94 Oxygen Delivery Method Room Air Nasal Cannula Nasal Cannula Oxygen Flow Rate (L/min) 3 3 05/19/23 00:28 05/19/23 00:32 05/19/23 01:17 Temperature 99.6 F H 98.2 F Temperature Source Oral Oral Pulse Rate 103 H 100 95 Respiratory Rate 22 H 24 H 20 H Blood Pressure 115/60 115/60 99/55 L Blood Pressure Mean 78 78 69 Pulse Ox 95 95 95 Oxygen Delivery Method Nasal Cannula Nasal Cannula Nasal Cannula Oxygen Flow Rate (L/min) 3 3 3 05/19/23 01:46 Temperature 99.3 F H Temperature Source Pulse Rate 94 Respiratory Rate 20 H Blood Pressure 103/54 L Blood Pressure Mean 70 Pulse Ox 95 Oxygen Delivery Method Oxygen Flow Rate (L/min) Positive well nourished and well developed Constitutional Narrative: Patient was cyanotic when her pulse ox was 85%. She is leaning to the right. She is not awake nor is she alert. General Appearance ED: well developed, cyanotic and NAD; Negative for diaphoretic or pallor HEENT Reports dry mucous membranes HEENT Narrative: Head is atraumatic and normocephalic. Ears are normal. TMs are normal. Posterior pharynx out erythema exam. Nares patent. Mouth ED: Yes dry mucous membranes Mouth: dry mucous membranes Eyes PERRL and EOMs intact bilaterally General Eye ED: Negative for pale conjunctiva or scleral icterus Neck no lymphadenopathy, supple and no JVD Chest Wall inspection of chest normal and palpation of chest normal Resp No normal respiratory effort and No clear to auscultation bilaterally Auscultation: rales diffuse (Lower lung hurst bilaterally) Cardio regular rhythm, S1 normal heart sound, S2 normal heart sound and no murmurs Rate: tachycardic GI normal to inspection, nondistended, normoactive bowel sounds, non-tender and non-distended Extremity normal to inspection Extremity Narrative: There is no acral cyanosis. There is no clubbing. Neuro No oriented x3 Sensorium / Orientation: Negative for alert Psych Psych Narrative: Unable to assess Skin no rashes or lesions noted, no wounds and No skin turgor normal General Skin Exam: Negative for jaundice or pallor Sepsis Attestation Sepsis Alert: Yes Sepsis Attestation: Agree w/Sepsis Date exam was performed: 05/18/23 Time exam was performed: 23:35 Possible Source of Sepsis: Pulmonary MDM MDM MDM Narrative Medical decision making narrative: Sepsis order set and treatment was initiated for community-acquired pneumonia. Since patient has bilateral rales and is not clinically fluid overloaded suspectshe has pneumonia. Would not anticipate rales bilaterally this is due to aspiration. COVID influenza RSV panel was ordered. She did receive a fluid bolus. Appropriate blood work was obtained to assess for endorgan dysfunction. Since her chest x-ray was unremarkable added a talk screen and alcohol level in light of her past history of benzodiazepine and alcohol use. History & Record Review Additional record(s) reviewed:: Prior inpatient record (Admission for hypoxia due to rhinovirus several months ago.), Prior ED visit (For multiple different things which included humeral fracture, upper respiratory infection etc.) and Prior labs Lab Data Attestation: I reviewed the patient's lab results. Lab results narrative: White count is elevated 15-200 with shift. There is 90% segs. Is no bandemia. Patient does have evidence of anemia with an H&H 11.9 and 36.7 with normal indices. Competence of metabolic panel reveals an elevated creatinine from baseline, 1.2 to with an estimated GFR of 46. Glucose is slightly elevated 134 with a normal CO2 and anion gap. Total bili slightly elevated. Transaminases are normal. Urinalysis is remarkable for ketones, occult blood, nitrites and leukoesterase on macro. There is 10-25 RBCs with greater than 100 WBCs; however, there are no bacteria seen. Culture was sent. Lactate is normal. Tox is positive for opiates. Alcohol was not detected. Rapid antigen for COVID, influenza and RSV were negative. Labs: Laboratory Results - last 24 hr 05/18/23 05/19/23 23:50 00:34 WBC 15.2 H RBC 3.75 L Hgb 11.9 L Hct 36.7 L MCV 97.9 MCH 31.7 MCHC 32.4 RDW Std Deviation 54.4 H RDW Coeff of Felix 15.1 H Plt Count 199 MPV 12.5 H Immature Gran % (Auto) 0.700 Neut % (Auto) 89.8 H Lymph % (Auto) 6.3 L Gem % (Auto) 2.4 Eos % (Auto) 0.3 Baso % (Auto) 0.5 Absolute Neuts (auto) 13.7 H Absolute Lymphs (auto) 0.96 Nucleated RBC % 0 Sodium 139 Potassium 3.8 Chloride 109 H Carbon Dioxide 24.0 Anion Gap 6 BUN 23 H Creatinine 1.22 H Estim Creat Clear Calc 40.12 Est GFR (MDRD) Af Amer 55 L Est GFR (MDRD) Non-Af 46 L BUN/Creatinine Ratio 18.9 Glucose 134 H Lactic Acid 1.7 Calcium 8.6 Total Bilirubin 1.40 H AST 22 ALT 17 Alkaline Phosphatase 116 Total Protein 7.5 Albumin 3.2 Globulin 4.3 H Albumin/Globulin Ratio 0.7 L Urine Color Yellow Urine Clarity Cloudy Urine pH 6.0 Ur Specific Candor 1.010 Urine Protein 100 H Urine Glucose (UA) Normal Urine Ketones 5 H Urine Occult Blood 50 H Urine Nitrite Positive H Urine Bilirubin Negative Urine Urobilinogen Normal Ur Leukocyte Esterase 500 H Urine RBC 10-25 SEEN Urine WBC >100 SEEN Ur Squamous Epith Cells 0 SEEN Urine Bacteria 0 SEEN Urine Mucus 0 SEEN Urine Opiates Screen POSITIVE H Urine Methadone Screen NEGATIVE Ur Barbiturates Screen NEGATIVE Ur Phencyclidine Scrn NEGATIVE Ur Amphetamines Screen NEGATIVE MDMA (Ecstasy) Screen NEGATIVE U Benzodiazepines Scrn NEGATIVE Urine Cocaine Screen NEGATIVE U Cannabinoids Screen NEGATIVE Ur Drug Screen Comment Ethyl Alcohol < 3.0 Radiography Chest X-Ray - ED: 1 View and Read by ED Physician (Patient is rotated and tiltedto the right. Hardware noted for prior rib fractures on the left. Cardiac sizeand silhouette are normal. Mediastinum is unremarkable. There is no effusion or pneumothorax noted. There is no acute abnormality of the osseous structures. There is independent reviewe) Diagnostic Testing: Clinical Impression(s) from Imaging Studies Chest X-Ray 05/18/23 23:55 IMPRESSION: No evidence of acute cardiopulmonary disease. Electronically Signed: Eliel Christensen DO at 0:46 EST , Radiology report was reviewed. Rhythm Strip Rhythm Strip: Sinus Tach Rate: 119 EKG Initial EKG: Attestation: I personally reviewed and interpreted this EKG as follows: Interpretation: Sinus Tachycardia (Rate is 111. SC interval is 114 ms. Cures duration 70 ms. QT duration is 298 ms. [place] is normal. Computer is reading ST-T wave abnormality which is in all likelihood artifact.) Management Discussion w/another healthcare provider: Hospitalist (Hospitalist was paged to discuss patient's history physical and admission. She was informed to the patient earlier however laboratory results had not returned.) Treatment and Re-Evaluation :: Patient received fluid bolus since there is been a drop in blood pressure. Send 0117 indicated blood pressure 99/55, pulse of 95, respiration of 20 and temperature of 98.2. In light of the drop in pressure will administer additional fluid bolus since there is no history of congestive heart failure. Patient's blood pressure did respond to IV fluids. Critical Care Time Critical Care Time: Yes Critical care time (excluding procedures): 30-74 minutes (22), Including time spent: (History, physical, documentation, review of prior records, independent interpretation of laboratory results and assessed [place] with treatment for hypertension), Discussing w/Patient &/or Family/Car Dropper, Discussing w/Consultants and Arranging Admission or Transfer Discharge Plan Dx/Rx/DC Orders Clinical Impression: Acute hypoxic respiratory failure, Pyuria, SIRS (systemic inflammatory responsesyndrome), Encephalopathy due to infection, Ketosis, Acute hypotension, Creatinine elevation Disposition Disposition: [facility] What to do if you have Problems For any increased pain, shortness of breath, bleeding, nausea or vomiting, chestpain, or any unexpected problems, contact your Primary Care Provider. Call [facility] ([phone]) or report to the closest Emergency Room. Call 911 if necessary. 05/19/23215 <Electronically signed by Jorge Cardona MD> Cosigner Signature (if applicable): CC: Dr. Erica Richardson, ~ Signed [facility] Work Phone: 1(674) 652-796312-12-2023 NoteHNO ID: [id number] Author: Radha Suarez RN Service: ? Author Type: Registered Nurse Type: Progress Notes Filed: 04/02/2023 2:59 PM Note Text: Patient is here for IVAD port flush per Nursing [facility] protocol. IVAD is located in right upper chest. Site cleansed with Chloraprep IVAD accessed with a #20 gauge 3/4 non-coring Gripper needle Blood Return: Good Flushed with: 20 ml Normal Saline and 5 ml Heparin Lock Flush Non-coring needle removed. Paper tape applied to puncture site. Port site negative for redness, edema or tenderness. Patient tolerated procedure well.[facility]08-04-2023 Miscellaneous Notes* Telephone Encounter - Melissa Sprague LPN - 11/23/2022 6:42 PM EDT Patient notified.Melissa Sprague LPN * Telephone Encounter - Christie Cruz LPN - 11/23/2022 7:52 AM EDT Phone call placed brief message to contact a nurse to review results. Christie Cruz LPN * Telephone Encounter - Wu Gallegos APRN.CNP - 11/23/2022 7:30 AM EDT Please notify that covid testing negative. Continue with plan of care as discussed during visit. [facility] History and physical note Author Bandar Chanel [facility] November 22, 2022 7:40pm Note Date/Time November 22, 2022 6:0 8pm [facility] Medical Records Department [address] [place] [address] H&P Exam - Hospitalist 11/22/22 1804 MR#: [id number] Acct: [id number] Name: AIDEN FIELDS Rep #:[id number] : 1945 77 From: Bandar Mckenna PCP: Dr. Erica Richardson, DO Status:ADM MAXIME Location: [place] [address] HPI - General General Date of Admission: 11/22/22 Date of Service: 11/22/22 Chief Complaint: Progressive worsening of for about 1 month HPI Narrative AIDEN FIELDS, is a 77 F who came to ED for progressive worsening of coughfor about 1 month. Patient denies shortness of breath at rest, syncope, chest pain/pressure or tightness, fever or new URI symptoms. She states she gets short of breath on walking/exertion. She has history of degenerative arthritis/gait instability chronic and uses walker and has home health thereforedoes not climb stairs. She has history of left-sided breast cancer and radiotherapy which is in remission for more than 10 years. She used to follow oncologist outside [facility] but currently does not follow oncologist probably discharged after follow-up. In ED, she was 89% on room air, 92% on room air but on ambulation her oxygen dropped to 70s that is why she required admission. She had CT angiogram of chest which did not show evidence of pulmonary embolism but scarring in left upper lobe most likely due to prior radiation. [facility] Medical History Alcohol abuse Alcohol intoxication Anemia Anxiety Arthritis Back problem Benzodiazepine dependence Bladder infection Bone fracture Breast cancer Breast cancer Breast lump BROKEN ARM REPAIR Calcium deficiency Cancer Debility Depression Depression Fall Frequent falls GERD (gastroesophageal reflux disease) Glaucoma High cholesterol High triglycerides History of recent fall HTN (hypertension) Hypertension Hypokalemia Hypomagnesemia Hyponatremia Hypoparathyroidism after procedure Hypothyroidism Hypothyroidism Hypothyroidism (acquired) Melanoma Multiple rib fractures Opioid dependence Pancreatitis Parathyroid abnormality Pneumonia Postsurgical hypoparathyroidism Postsurgical hypothyroidism Rheumatoid arthritis Right arm fracture Scalp laceration Skin cancer Subdural hematoma Tobacco abuse UTI (urinary tract infection) Vitamin D deficiency Home Medications potassium chloride 20 mEq tablet,extended release(part/cryst) 40 meq PO DAILY SUPPLEMENT 08/01/20 [History Last Taken 11/22/22] valacyclovir 1 gram tablet 1,000 mg PO DAILY SHINGLES 08/01/20 [History Last Taken 11/22/22] dexamethasone sodium phosphate 0.1 % eye drops 1 drp ophthalmic (eye) DAILY glaucoma 03/09/21 [History Last Taken 11/22/22] hydrocodone 10 mg-acetaminophen 325 mg tablet 1 tab PO Q6H PAIN 06/11/21 [History Last Taken 11/22/22] clonazepam 1 mg tablet 1 mg PO BID #6 tabs 03/03/22 [Rx Last Taken 11/22/22] pregabalin 75 mg capsule 75 mg PO TID PAIN #9 caps 03/03/22 [Rx Last Taken 11/22/22] amlodipine 5 mg tablet 5 mg PO DAILY 11/22/22 [History Last Taken 11/22/22] calcitriol 0.5 mcg capsule 0.5 mcg PO BID 11/22/22 [History Last Taken 11/22/22] cholecalciferol (vitamin D3) 25 mcg (1,000 unit) capsule 25 mcg PO DAILY SUPPLEMENT 11/22/22 [History Last Taken 11/22/22] escitalopram oxalate 10 mg tablet (Lexapro) 10 mg PO DAILY ANXIETY 11/22/22 [History Last Taken 11/22/22] levothyroxine 125 mcg tablet 125 mcg PO DAILY 11/22/22 [History Last Taken 11/22/22] liothyronine 5 mcg tablet 5 mcg PO DAILY 11/22/22 [History Last Taken 11/22/22] magnesium oxide 500 mg tablet 1,000 mg PO DAILY SUPPLEMENT 11/22/22 [History Last Taken 11/22/22] meclizine 25 mg tablet 25 mg PO DAILY Dizziness 11/22/22 [History Last Taken 11/22/22] memantine 5 mg tablet 5 mg PO BID 11/22/22 [History Last Taken 11/22/22] nabumetone 750 mg tablet 750 mg PO BID 11/22/22 [History Last Taken 11/22/22] quetiapine 100 mg tablet 100 mg PO DAILY DEPRESSION 11/22/22 [History Last Taken 11/22/22] Allergy/AdvReac Type Severity Reaction Status Date / Time bacitracin Allergy Unknown Unknown Verified 11/22/22 12:44 [From Neosporin ([id number])] neomycin Allergy Unknown Unknown Verified 11/22/22 12:44 [From Neosporin ([id number])] polymyxin B Allergy Unknown Unknown Verified 11/22/22 12:44 [From Neosporin ([id number])] Antihistamines - Alkylamine Allergy PT UNSURE Verified 11/22/22 12:44 OF REACTION diphenhydramine Allergy PT UNSURE Verified 11/22/22 12:44 [From Benadryl] OF REACTION Family History Unknown Thyroid disorder Cancer High cholesterol Arthritis Mother Cancer Diabetes Father , Father at the age of 50 from successful suicide attempt. Suicidal intent Other Alcohol abuse Anxiety Depression Heart disease Hypertension Mental disorder Parkinson disease Psychiatric care Surgical History H/O mastectomy H/O thyroidectomy Status post glaucoma surgery Social History household members: none Smoking Status: Former smoker second hand exposure: Yes alcohol intake: never substance use type: does not use ROS ROS Narrative Constitutional: Reports fatigue and weakness. No fever. HEENT: Reports systems reviewed and no addt'l complaints, except as documented Respiratory/Chest: Ex-smoker quit more than 10 years ago. Rest as mentioned in HPI CVS: Denies cardiac history of coronary artery disease or other chronic conditions. No chest pain or tightness. No pleuritic chest pain Gastrointestinal: Denies coffee ground emesis, hematemesis or vomiting Genitourinary: Denies burning urination or new urinary tract symptoms Musculoskeletal: Chronic joint pain and degenerative arthritis and limited rangeof motion. On walker. Neurologic: Denies seizure-like symptoms. No strokelike symptoms. skin: No ulcer. No rash Endocrinology: Hypothyroidism status post thyroidectomy reports systems reviewedand no addt'l complaints, except as documented Hematologic/Lymphatic: Reports systems reviewed and no addt'l complaints, exceptas documented Rest 14 ROS are negative except as mentioned in HPI Vital Signs Vital Signs Vital Signs: 11/22/22 12:42 11/22/22 12:53 11/22/22 13:05 Temperature 97.2 F L Temperature Source Temporal Pulse Rate 80 73 Respiratory Rate 14 18 Respiratory Effort Normal Respiratory Depth Normal Respiratory Pattern Normal Blood Pressure 115/89 H Blood Pressure Mean 97 Pulse Ox 89 92 Oxygen Delivery Method Room Air Room Air 11/22/22 17:49 11/22/22 17:49 Temperature 98 F Temperature Source Temporal Pulse Rate 72 72 Respiratory Rate 18 18 Respiratory Effort Respiratory Depth Respiratory Pattern Blood Pressure 151/79 H 151/79 H Blood Pressure Mean 103 103 Pulse Ox 93 93 Oxygen Delivery Method Room Air Room Air Weight Weight: 150 lb Body Mass Index (BMI) 24.2 Physical Exam Narrative General: Alert, Oriented x3, Cooperative HEENT: Atraumatic, PERRLA, EOMI, Normocephalic Oral: Oral mucosa dry. No Gingival or Mucosal Lesions/ Ulcerations Neck: Supple, No JVD, Negative Carotid Bruits Lungs: Air entry diminished in bilateral lung bases. Bilateral wheezing and expiratory rhonchi present. Dyspnea on exertion Cardiovascular: Regular rate, Regular Rhythm, Normal S1, Normal S2, No murmurs Abdomen: Bowel Sounds Present, Soft, Non Tender, Non-Distended : No renal angle tenderness. No suprapubic tenderness. Extremities: mild chronic nonpitting edema, Capillary Refill Less than 3 Seconds Skin: No rashes, No breakdown Musculoskeletal: No Tenderness to Palpation of Joints or Extremities. ROM limited. Degenerative arthritis of knees and hip joints Neurological: Cranial nerves II-XII grossly intact, DTR 2+/4. No acute focal neurological deficit. Psych/Mental Status: Flat affect. Results Lab / Micro Data 11/22/22 14:00 11/22/22 14:00 Labs: Laboratory Results - last 24 hr 11/22/22 14:00: WBC 9.4, RBC 3.81 L, Hgb 11.0 L, Hct 35.1 L, MCV 92.1, MCH 28.9,MCHC 31.3 L, RDW Std Deviation 56.1 H, RDW Coeff of Felix 16.7 H, Plt Count 247, MPV 11.8, Immature Gran % (Auto) 0.400, Neut % (Auto) 64.5, Lymph % (Auto) 15.4 L, Gem % (Auto) 12.3 H, Eos % (Auto) 6.7 H, Baso % (Auto) 0.7, Absolute Neuts (auto) 6.1, Absolute Lymphs (auto) 1.44, Nucleated RBC % 0, Sodium 137, Potassium 4.1, Chloride 102, Carbon Dioxide 32.0, Anion Gap 3 L, BUN 16, Creatinine 0.57, Estim Creat Clear Calc 44.80, Est GFR (MDRD) Af Amer 132, Est GFR (MDRD) Non-Af 109, BUN/Creatinine Ratio 27.9 H, Glucose 82, Calcium 8.3 L, Troponin I High Sens 7, B-Natriuretic Peptide 198.9 H Micro: Microbiology 11/22/22 13:35 Nasal Secretion SARS-CoV-2 Antigen (Rapid) - Final Rhythm Strip Rhythm Strip: Sinus Rhythm Rate: 70 Ectopy: None Radiology Impression Chest CTA 11/22/22 13:05 IMPRESSION: No evidence of pulmonary embolism. Scarring in the left upper lobe most likely secondary to prior radiation. Multiple ORIF of left rib fractures. Electronically Signed: Franki Glez MD at 15:33 EDT , Assessment & Plan Assessment/Plan (1) Hypoxia: (2) Dyspnea on exertion: PLAN: Plan 77-year-old female is being admitted for chronic cough, hypoxia on ambulation and dyspnea on exertion 1. Dyspnea on exertion/hypoxia on ambulation probably due to COPD/chronic radiation pneumonitis/scarring, suspected COPD exacerbation: I do not think patient has infectious etiology as per history. Chest CTA in usually reviewed no PE but shows scarring in left upper lobe probably chronic radiation pneumonitis/scarring. She also has history of more than 40 pack years of smoking but quit 10 years ago and does not have diagnosed COPD. She never had PFT. DuoNeb every 6 hourly, Solu-Medrol 40 mg IV every 8 hourly, Zithromax, incentive spirometry/Pep. Mucinex DM 1 tablet twice daily. 2D echo ordered for dyspnea on exertion and hypoxia. 2. History of breast cancer in remission status post radiotherapy more than 10 years ago: No acute issues. 3. Hypothyroidism, hypoparathyroidism after thyroidectomy, chronic anxiety patient, neuropathic pain, degenerative arthritis, GERD and history of frequent falls in the past: PT and OT is ordered. Home medication reconciliation done. VTE prophylaxis high risk: Lovenox 40 mill subcu daily. Living will/advanced directive/end of life care: Patient does not have living will or advanced directive. Next to kin is her daughter, Mrs. Reed Marx nearthe bedside. After discussion of benefits/risks procedures involved with full code, DNR CC arrest and DNR CC, the patient said she has not thought about it inthe past but after sometimes he said for now she will keep full code. Patient does want artificial life support including intubation, tube feed, ventilator and/chest compression, central venous catheter, vasopressor and DC shock if needed Total time spent in [id number] encounter in discussion of advanced directive 17 minutes. Microbiology Past 72 Hours 11/22/22 13:35 Nasal Secretion SARS-CoV-2 Antigen (Rapid) - Final Laboratory Results 11/22/22 14:00: WBC 9.4, RBC 3.81 L, Hgb 11.0 L, Hct 35.1 L, MCV 92.1, MCH 28.9,MCHC 31.3 L, RDW Std Deviation 56.1 H, RDW Coeff of Felix 16.7 H, Plt Count 247, MPV 11.8, Immature Gran % (Auto) 0.400, Neut % (Auto) 64.5, Lymph % (Auto) 15.4 L, Gem % (Auto) 12.3 H, Eos % (Auto) 6.7 H, Baso % (Auto) 0.7, Absolute Neuts (auto) 6.1, Absolute Lymphs (auto) 1.44, Nucleated RBC % 0, Sodium 137, Potassium 4.1, Chloride 102, Carbon Dioxide 32.0, Anion Gap 3 L, BUN16, Creatinine 0.57, Estim Creat Clear Calc 44.80, Est GFR (MDRD) Af Amer 132, Est GFR (MDRD) Non-Af 109, BUN/Creatinine Ratio 27.9 H, Glucose 82, Calcium 8.3 L, Troponin I High Sens 7, B-Natriuretic Peptide 198.9 H Clinical Impression(s) from Imaging Studies Chest CTA 11/22/22 13:05 IMPRESSION: No evidence of pulmonary embolism. Scarring in the left upper lobe most likely secondary to prior radiation. Multiple ORIF of left rib fractures. Electronically Signed: Franki Glez MD at 15:33 EDT , Charges/Coding Visit Charges Inpatient E&M: 86864 Init Hosp L3 Procedures Hospitalists Procedures: 78652 Advncd Care Plan 30 Min 11/22/221939 <Electronically signed by Bandar Chanel MD> Cosigner Signature (if applicable): CC: Dr. Erica Richardson DO; Dr. Bandar Chanel MD~ Signed [facility] Work Phone: [phone]) 866-590208-03-2023 Discharge summary Author Katei [facility] November 22, 2022 4:54pm Note Date/Time November 22, 2022 1:0 9pm [facility] System Medical Records Department [address] [place] [address] Emergency Department Summary 11/22/22 MR#: [id number] Acct: [id number] Name: AIDEN FIELDS Rep #:[id number] : 1945 77 From: Katie Nguyen PCP: Dr. Erica Richardson DO Status:REG ER Location: ED HPI History of Present Illness Chief Complaint: Cough Informant: patient Narrative Narrative: Patient is a 77-year-old female with history of anxiety, neuropathy and hypothyroidism as well as remote history of breast cancer presenting with worsening cough. Patient been having worsening cough for the past few weeks in the past month. She states she started have some sputum production more recently. She states she swallows and does not spit it out so she is not sure what color it is. She does not feel overly short of breath. [facility] and [facility] her to the ER for rule out PE as her chest x-ray was negative. Patient denies any swelling of her legs. Denies any abdominal pain. Notes she has chronically decreased appetite since her . Denies anynausea or vomiting. Has some ongoing constipation issues. Denies any history of pulmonary emboli or DVT. Is not on any blood thinners. Denies any URI symptoms. No other complaints or concerns at this time. [facility] Medical History Alcohol abuse Alcohol intoxication Anemia Anxiety Arthritis Back problem Benzodiazepine dependence Bladder infection Bone fracture Breast cancer Breast cancer Breast lump BROKEN ARM REPAIR Calcium deficiency Cancer Debility Depression Depression Fall Frequent falls GERD (gastroesophageal reflux disease) Glaucoma High cholesterol High triglycerides History of recent fall HTN (hypertension) Hypertension Hypokalemia Hypomagnesemia Hyponatremia Hypoparathyroidism after procedure Hypothyroidism Hypothyroidism Hypothyroidism (acquired) Melanoma Multiple rib fractures Opioid dependence Pancreatitis Parathyroid abnormality Pneumonia Postsurgical hypoparathyroidism Postsurgical hypothyroidism Rheumatoid arthritis Right arm fracture Scalp laceration Skin cancer Subdural hematoma Tobacco abuse UTI (urinary tract infection) Vitamin D deficiency Home Medications potassium chloride 20 mEq tablet,extended release(part/cryst) 40 meq PO DAILY SUPPLEMENT 08/01/20 [History Last Taken 11/22/22] valacyclovir 1 gram tablet 1,000 mg PO DAILY SHINGLES 08/01/20 [History Last Taken 11/22/22] dexamethasone sodium phosphate 0.1 % eye drops 1 drp ophthalmic (eye) DAILY glaucoma 03/09/21 [History Last Taken 11/22/22] hydrocodone 10 mg-acetaminophen 325 mg tablet 1 tab PO Q6H PAIN 06/11/21 [History Last Taken 11/22/22] clonazepam 1 mg tablet 1 mg PO BID #6 tabs 03/03/22 [Rx Last Taken 11/22/22] pregabalin 75 mg capsule 75 mg PO TID PAIN #9 caps 03/03/22 [Rx Last Taken 11/22/22] amlodipine 5 mg tablet 5 mg PO DAILY 11/22/22 [History Last Taken 11/22/22] calcitriol 0.5 mcg capsule 0.5 mcg PO BID 11/22/22 [History Last Taken 11/22/22] cholecalciferol (vitamin D3) 25 mcg (1,000 unit) capsule 25 mcg PO DAILY SUPPLEMENT 11/22/22 [History Last Taken 11/22/22] escitalopram oxalate 10 mg tablet (Lexapro) 10 mg PO DAILY ANXIETY 11/22/22 [History Last Taken 11/22/22] levothyroxine 125 mcg tablet 125 mcg PO DAILY 11/22/22 [History Last Taken 11/22/22] liothyronine 5 mcg tablet 5 mcg PO DAILY 11/22/22 [History Last Taken 11/22/22] magnesium oxide 500 mg tablet 1,000 mg PO DAILY SUPPLEMENT 11/22/22 [History Last Taken 11/22/22] meclizine 25 mg tablet 25 mg PO DAILY Dizziness 11/22/22 [History Last Taken 11/22/22] memantine 5 mg tablet 5 mg PO BID 11/22/22 [History Last Taken 11/22/22] nabumetone 750 mg tablet 750 mg PO BID 11/22/22 [History Last Taken 11/22/22] quetiapine 100 mg tablet 100 mg PO DAILY DEPRESSION 11/22/22 [History Last Taken 11/22/22] Allergy/AdvReac Type Severity Reaction Status Date / Time bacitracin Allergy Unknown Unknown Verified 11/22/22 12:44 [From Neosporin ([id number])] neomycin Allergy Unknown Unknown Verified 11/22/22 12:44 [From Neosporin ([id number])] polymyxin B Allergy Unknown Unknown Verified 11/22/22 12:44 [From Neosporin ([id number])] Antihistamines - Alkylamine Allergy PT UNSURE Verified 11/22/22 12:44 OF REACTION diphenhydramine Allergy PT UNSURE Verified 11/22/22 12:44 [From Benadryl] OF REACTION Family History Unknown Thyroid disorder Cancer High cholesterol Arthritis Mother Cancer Diabetes Father , Father at the age of 50 from successful suicide attempt. Suicidal intent Other Alcohol abuse Anxiety Depression Heart disease Hypertension Mental disorder Parkinson disease Psychiatric care Surgical History H/O mastectomy H/O thyroidectomy Status post glaucoma surgery Social History household members: none Smoking Status: Former smoker second hand exposure: Yes alcohol intake: never substance use type: does not use ROS ROS ED Constitutional Constitutional ED: Denies chills, fever(s) or sweats Eyes Eyes: Denies change in vision ENT ENT ED: Denies rhinorrhea or sore throat Cardiovascular Cardiovascular: Denies chest pain or palpitations Respiratory/Chest Respiratory/Chest: Reports cough and dyspnea on exertion; Denies dyspnea Gastrointestinal Gastrointestinal: Denies abdominal pain, nausea or vomiting Musculoskeletal Musculoskeletal: Denies arthralgias or myalgias Integumentary Denies rash Neurologic Neurologic: Denies headache(s) Hematologic/Lymphatic Hematologic/Lymphatic: Denies easy bleeding or easy bruising EXAM Physical Exam Const Vital Signs: 11/22/22 12:42 11/22/22 12:53 11/22/22 13:05 Temperature 97.2 F L Temperature Source Temporal Pulse Rate 80 73 Respiratory Rate 14 18 Respiratory Effort Normal Respiratory Depth Normal Respiratory Pattern Normal Blood Pressure 115/89 H Blood Pressure Mean 97 Pulse Ox 89 92 Oxygen Delivery Method Room Air Room Air Positive well nourished and well developed Constitutional Narrative: frail General Appearance ED: well developed and NAD HEENT Reports moist mucous membranes Eyes PERRL and EOMs intact bilaterally Neck supple and no JVD Resp normal respiratory effort Cardio regular rate and regular rhythm GI non-tender and non-distended Extremity normal to inspection General Extremety ED: Negative for edema or tenderness General Extremity: Negative for edema Neuro oriented x3 Sensorium / Orientation: alert Motor Exam: general weakness Psych mental status grossly normal Skin no wounds Rashes: no rashes MDM MDM MDM Narrative Medical decision making narrative: Patient is evaluated for ongoing cough for the past month. She appears nontoxicin no acute distress. While in the ER patient is between 89 and 92% on room airjust resting. She is largely asymptomatic. Exam is pretty benign. Does not appear fluid overloaded. Have a high suspicion of pulmonary emboli there is no other obvious cause of her symptoms so CTAs ordered. This is negative for pulmonary emboli. She does have some scarring of her left upper lobe likely secondary to prior radiation and multiple ORIF of the left rib fractures that are old but no acute process to explain her acute hypoxia. Laboratory work-up largely remarkable as well, rising stay troponin is 7, her renal function is normal, no significant [place] abnormalities and she has a mild anemia with a hemoglobin of 11 which is nonspecific and does not explain her symptoms. Patient is ambulated in the emergency room and does desaturate pretty significantly. She desaturates to 77%. She is not really symptomatic. I suspect this is more of a chronic issue that is finally getting diagnosis. Discussed with patient that the cause of this hypoxia with ambulation is not clear and the cause of her cough is not clear however I do think she benefit from admission. She is agreeable. Her daughter is at the bedside now who is also agreeable with this plan of care. Case is discussed with my physician, . Discussed there could be some underlying condition such as pulmonary hypertension or restrictive lung disease that could be causing her hypoxia as well. Lab Data Attestation: I reviewed the patient's lab results. Labs: Laboratory Results - last 24 hr 11/22/22 14:00 WBC 9.4 RBC 3.81 L Hgb 11.0 L Hct 35.1 L MCV 92.1 MCH 28.9 MCHC 31.3 L RDW Std Deviation 56.1 H RDW Coeff of Felix 16.7 H Plt Count 247 MPV 11.8 Immature Gran % (Auto) 0.400 Neut % (Auto) 64.5 Lymph % (Auto) 15.4 L Gem % (Auto) 12.3 H Eos % (Auto) 6.7 H Baso % (Auto) 0.7 Absolute Neuts (auto) 6.1 Absolute Lymphs (auto) 1.44 Nucleated RBC % 0 Sodium 137 Potassium 4.1 Chloride 102 Carbon Dioxide 32.0 Anion Gap 3 L BUN 16 Creatinine 0.57 Estim Creat Clear Calc 44.80 Est GFR (MDRD) Af Amer 132 Est GFR (MDRD) Non-Af 109 BUN/Creatinine Ratio 27.9 H Glucose 82 Calcium 8.3 L Troponin I High Sens 7 Radiography Diagnostic Testing: Clinical Impression(s) from Imaging Studies Chest CTA 11/22/22 13:05 IMPRESSION: No evidence of pulmonary embolism. Scarring in the left upper lobe most likely secondary to prior radiation. Multiple ORIF of left rib fractures. Electronically Signed: Franki Glez MD at 15:33 EDT , Rhythm Strip Rhythm Strip: Sinus Rhythm Rate: 70 Ectopy: None EKG Initial EKG: Attestation: I personally reviewed and interpreted this EKG as follows: Interpretation: Sinus Rhythm Comments: Normal sinus rhythm at a rate of 70 bpm with sinus arrhythmia Normal axis Normal intervals Normal ST segments Nonspecific T wave inversion lead III Discharge Plan Triage Chief Complaint: Cough ED Provider: Katie Randle Dx/Rx/DC Orders Clinical Impression: Cough, Hypoxia Prescriptions: No Action valacyclovir 1 gram tablet 1,000 mg PO DAILY potassium chloride 20 mEq tablet,ER particles/crystals 40 meq PO DAILY dexamethasone sodium phosphate 0.1 % drops 1 drp ophthalmic (eye) DAILY Rx Instructions: RIGHT EYE hydrocodone-acetaminophen 10-325 mg tablet 1 tab PO Q6H cholecalciferol (vitamin D3) 25 mcg (1,000 unit) capsule 25 mcg PO DAILY magnesium oxide 500 mg tablet 1,000 mg PO DAILY memantine 5 mg tablet 5 mg PO BID nabumetone 750 mg tablet 750 mg PO BID escitalopram oxalate [Lexapro] 10 mg tablet 10 mg PO DAILY quetiapine 100 mg tablet 100 mg PO DAILY liothyronine 5 mcg tablet 5 mcg PO DAILY amlodipine 5 mg tablet 5 mg PO DAILY meclizine [meclizine] 25 MG tablet 25 mg PO DAILY calcitriol 0.5 mcg capsule 0.5 mcg PO BID Rx Instructions: please discontinue any rx for calcitriol by an other doctors levothyroxine 125 mcg tablet 125 mcg PO DAILY clonazepam 1 mg tablet 1 mg PO BID Qty: 6 0RF pregabalin 75 mg capsule 75 mg PO TID Qty: 9 0RF Primary Care Provider: Erica Richardson Referrals: Erica Richardson DO [Primary Care Provider] - Disposition Disposition: Acute Care [facility] What to do if you have Problems For any increased pain, shortness of breath, bleeding, nausea or vomiting, chestpain, or any unexpected problems, contact your Primary Care Provider. Call [facility] ([phone]) or report to the closest Emergency Room. Call 911 if necessary. 11/22/22 1654 <Electronically signed by Katie Randle DO> Cosigner Signature (if applicable): CC: Dr. Erica Richardson DO ~ Signed [facility] Work Phone: [phone] Discharge summary Author Katie Randle [facility] November 22, 2022 4:54pm Note Date/Time November 22, 2022 1:0 9pm [facility] Medical Records Department [address] [place] [address] Emergency Department Summary 11/22/22 MR#: [id number] Acct: [id number] Name: DIAMONDAIDEN Consuelo Rep #:[id number] : 1945 77 From: Katie Nguyen PCP: Dr. Erica Richardson DO Status:REG ER Location: ED HPI History of Present Illness Chief Complaint: Cough Informant: patient Narrative Narrative: Patient is a 77-year-old female with history of anxiety, neuropathy and hypothyroidism as well as remote history of breast cancer presenting with worsening cough. Patient been having worsening cough for the past few weeks in the past month. She states she started have some sputum production more recently. She states she swallows and does not spit it out so she is not sure what color it is. She does not feel overly short of breath. [facility] and [facility] her to the ER for rule out PE as her chest x-ray was negative. Patient denies any swelling of her legs. Denies any abdominal pain. Notes she has chronically decreased appetite since her . Denies anynausea or vomiting. Has some ongoing constipation issues. Denies any history of pulmonary emboli or DVT. Is not on any blood thinners. Denies any URI symptoms. No other complaints or concerns at this time. [facility] Medical History Alcohol abuse Alcohol intoxication Anemia Anxiety Arthritis Back problem Benzodiazepine dependence Bladder infection Bone fracture Breast cancer Breast cancer Breast lump BROKEN ARM REPAIR Calcium deficiency Cancer Debility Depression Depression Fall Frequent falls GERD (gastroesophageal reflux disease) Glaucoma High cholesterol High triglycerides History of recent fall HTN (hypertension) Hypertension Hypokalemia Hypomagnesemia Hyponatremia Hypoparathyroidism after procedure Hypothyroidism Hypothyroidism Hypothyroidism (acquired) Melanoma Multiple rib fractures Opioid dependence Pancreatitis Parathyroid abnormality Pneumonia Postsurgical hypoparathyroidism Postsurgical hypothyroidism Rheumatoid arthritis Right arm fracture Scalp laceration Skin cancer Subdural hematoma Tobacco abuse UTI (urinary tract infection) Vitamin D deficiency Home Medications potassium chloride 20 mEq tablet,extended release(part/cryst) 40 meq PO DAILY SUPPLEMENT 08/01/20 [History Last Taken 11/22/22] valacyclovir 1 gram tablet 1,000 mg PO DAILY SHINGLES 08/01/20 [History Last Taken 11/22/22] dexamethasone sodium phosphate 0.1 % eye drops 1 drp ophthalmic (eye) DAILY glaucoma 03/09/21 [History Last Taken 11/22/22] hydrocodone 10 mg-acetaminophen 325 mg tablet 1 tab PO Q6H PAIN 06/11/21 [History Last Taken 11/22/22] clonazepam 1 mg tablet 1 mg PO BID #6 tabs 03/03/22 [Rx Last Taken 11/22/22] pregabalin 75 mg capsule 75 mg PO TID PAIN #9 caps 03/03/22 [Rx Last Taken 11/22/22] amlodipine 5 mg tablet 5 mg PO DAILY 11/22/22 [History Last Taken 11/22/22] calcitriol 0.5 mcg capsule 0.5 mcg PO BID 11/22/22 [History Last Taken 11/22/22] cholecalciferol (vitamin D3) 25 mcg (1,000 unit) capsule 25 mcg PO DAILY SUPPLEMENT 11/22/22 [History Last Taken 11/22/22] escitalopram oxalate 10 mg tablet (Lexapro) 10 mg PO DAILY ANXIETY 11/22/22 [History Last Taken 11/22/22] levothyroxine 125 mcg tablet 125 mcg PO DAILY 11/22/22 [History Last Taken 11/22/22] liothyronine 5 mcg tablet 5 mcg PO DAILY 11/22/22 [History Last Taken 11/22/22] magnesium oxide 500 mg tablet 1,000 mg PO DAILY SUPPLEMENT 11/22/22 [History Last Taken 11/22/22] meclizine 25 mg tablet 25 mg PO DAILY Dizziness 11/22/22 [History Last Taken 11/22/22] memantine 5 mg tablet 5 mg PO BID 11/22/22 [History Last Taken 11/22/22] nabumetone 750 mg tablet 750 mg PO BID 11/22/22 [History Last Taken 11/22/22] quetiapine 100 mg tablet 100 mg PO DAILY DEPRESSION 11/22/22 [History Last Taken 11/22/22] Allergy/AdvReac Type Severity Reaction Status Date / Time bacitracin Allergy Unknown Unknown Verified 11/22/22 12:44 [From Neosporin ([id number])] neomycin Allergy Unknown Unknown Verified 11/22/22 12:44 [From Neosporin ([id number])] polymyxin B Allergy Unknown Unknown Verified 11/22/22 12:44 [From Neosporin ([id number])] Antihistamines - Alkylamine Allergy PT UNSURE Verified 11/22/22 12:44 OF REACTION diphenhydramine Allergy PT UNSURE Verified 11/22/22 12:44 [From Benadryl] OF REACTION Family History Unknown Thyroid disorder Cancer High cholesterol Arthritis Mother Cancer Diabetes Father , Father at the age of 50 from successful suicide attempt. Suicidal intent Other Alcohol abuse Anxiety Depression Heart disease Hypertension Mental disorder Parkinson disease Psychiatric care Surgical History H/O mastectomy H/O thyroidectomy Status post glaucoma surgery Social History household members: none Smoking Status: Former smoker second hand exposure: Yes alcohol intake: never substance use type: does not use ROS ROS ED Constitutional Constitutional ED: Denies chills, fever(s) or sweats Eyes Eyes: Denies change in vision ENT ENT ED: Denies rhinorrhea or sore throat Cardiovascular Cardiovascular: Denies chest pain or palpitations Respiratory/Chest Respiratory/Chest: Reports cough and dyspnea on exertion; Denies dyspnea Gastrointestinal Gastrointestinal: Denies abdominal pain, nausea or vomiting Musculoskeletal Musculoskeletal: Denies arthralgias or myalgias Integumentary Denies rash Neurologic Neurologic: Denies headache(s) Hematologic/Lymphatic Hematologic/Lymphatic: Denies easy bleeding or easy bruising EXAM Physical Exam Const Vital Signs: 11/22/22 12:42 11/22/22 12:53 11/22/22 13:05 Temperature 97.2 F L Temperature Source Temporal Pulse Rate 80 73 Respiratory Rate 14 18 Respiratory Effort Normal Respiratory Depth Normal Respiratory Pattern Normal Blood Pressure 115/89 H Blood Pressure Mean 97 Pulse Ox 89 92 Oxygen Delivery Method Room Air Room Air Positive well nourished and well developed Constitutional Narrative: frail General Appearance ED: well developed and NAD HEENT Reports moist mucous membranes Eyes PERRL and EOMs intact bilaterally Neck supple and no JVD Resp normal respiratory effort Cardio regular rate and regular rhythm GI non-tender and non-distended Extremity normal to inspection General Extremety ED: Negative for edema or tenderness General Extremity: Negative for edema Neuro oriented x3 Sensorium / Orientation: alert Motor Exam: general weakness Psych mental status grossly normal Skin no wounds Rashes: no rashes MDM MDM MDM Narrative Medical decision making narrative: Patient is evaluated for ongoing cough for the past month. She appears nontoxicin no acute distress. While in the ER patient is between 89 and 92% on room airjust resting. She is largely asymptomatic. Exam is pretty benign. Does not appear fluid overloaded. Have a high suspicion of pulmonary emboli there is no other obvious cause of her symptoms so CTAs ordered. This is negative for pulmonary emboli. She does have some scarring of her left upper lobe likely secondary to prior radiation and multiple ORIF of the left rib fractures that are old but no acute process to explain her acute hypoxia. Laboratory work-up largely remarkable as well, rising stay troponin is 7, her renal function is normal, no significant [place] abnormalities and she has a mild anemia with a hemoglobin of 11 which is nonspecific and does not explain her symptoms. Patient is ambulated in the emergency room and does desaturate pretty significantly. She desaturates to 77%. She is not really symptomatic. I suspect this is more of a chronic issue that is finally getting diagnosis. Discussed with patient that the cause of this hypoxia with ambulation is not clear and the cause of her cough is not clear however I do think she benefit from admission. She is agreeable. Her daughter is at the bedside now who is also agreeable with this plan of care. Case is discussed with my physician, . Discussed there could be some underlying condition such as pulmonary hypertension or restrictive lung disease that could be causing her hypoxia as well. Lab Data Attestation: I reviewed the patient's lab results. Labs: Laboratory Results - last 24 hr 11/22/22 14:00 WBC 9.4 RBC 3.81 L Hgb 11.0 L Hct 35.1 L MCV 92.1 MCH 28.9 MCHC 31.3 L RDW Std Deviation 56.1 H RDW Coeff of Felix 16.7 H Plt Count 247 MPV 11.8 Immature Gran % (Auto) 0.400 Neut % (Auto) 64.5 Lymph % (Auto) 15.4 L Gem % (Auto) 12.3 H Eos % (Auto) 6.7 H Baso % (Auto) 0.7 Absolute Neuts (auto) 6.1 Absolute Lymphs (auto) 1.44 Nucleated RBC % 0 Sodium 137 Potassium 4.1 Chloride 102 Carbon Dioxide 32.0 Anion Gap 3 L BUN 16 Creatinine 0.57 Estim Creat Clear Calc 44.80 Est GFR (MDRD) Af Amer 132 Est GFR (MDRD) Non-Af 109 BUN/Creatinine Ratio 27.9 H Glucose 82 Calcium 8.3 L Troponin I High Sens 7 Radiography Diagnostic Testing: Clinical Impression(s) from Imaging Studies Chest CTA 11/22/22 13:05 IMPRESSION: No evidence of pulmonary embolism. Scarring in the left upper lobe most likely secondary to prior radiation. Multiple ORIF of left rib fractures. Electronically Signed: Franki Glez MD at 15:33 EDT , Rhythm Strip Rhythm Strip: Sinus Rhythm Rate: 70 Ectopy: None EKG Initial EKG: Attestation: I personally reviewed and interpreted this EKG as follows: Interpretation: Sinus Rhythm Comments: Normal sinus rhythm at a rate of 70 bpm with sinus arrhythmia Normal axis Normal intervals Normal ST segments Nonspecific T wave inversion lead III Discharge Plan Triage Chief Complaint: Cough ED Provider: Katie Randle Dx/Rx/DC Orders Clinical Impression: Cough, Hypoxia Prescriptions: No Action valacyclovir 1 gram tablet 1,000 mg PO DAILY potassium chloride 20 mEq tablet,ER particles/crystals 40 meq PO DAILY dexamethasone sodium phosphate 0.1 % drops 1 drp ophthalmic (eye) DAILY Rx Instructions: RIGHT EYE hydrocodone-acetaminophen 10-325 mg tablet 1 tab PO Q6H cholecalciferol (vitamin D3) 25 mcg (1,000 unit) capsule 25 mcg PO DAILY magnesium oxide 500 mg tablet 1,000 mg PO DAILY memantine 5 mg tablet 5 mg PO BID nabumetone 750 mg tablet 750 mg PO BID escitalopram oxalate [Lexapro] 10 mg tablet 10 mg PO DAILY quetiapine 100 mg tablet 100 mg PO DAILY liothyronine 5 mcg tablet 5 mcg PO DAILY amlodipine 5 mg tablet 5 mg PO DAILY meclizine [meclizine] 25 MG tablet 25 mg PO DAILY calcitriol 0.5 mcg capsule 0.5 mcg PO BID Rx Instructions: please discontinue any rx for calcitriol by an other doctors levothyroxine 125 mcg tablet 125 mcg PO DAILY clonazepam 1 mg tablet 1 mg PO BID Qty: 6 0RF pregabalin 75 mg capsule 75 mg PO TID Qty: 9 0RF Primary Care Provider: Erica Richardson Referrals: Erica Richardson DO [Primary Care Provider] - Disposition Disposition: Acute Care [facility] What to do if you have Problems For any increased pain, shortness of breath, bleeding, nausea or vomiting, chestpain, or any unexpected problems, contact your Primary Care Provider. Call [facility] ([phone]) or report to the closest Emergency Room. Call 911 if necessary. 11/22/22 1654 <Electronically signed by Katie Randle DO> Cosigner Signature (if applicable): CC: Dr. Erica Richardson DO ~ Signed [facility] Work Phone: [phone]) 135-845508-03-2023 History of Present illness Narrative* Katarzyna Nance RT(R) - 11/22/2022 12:00 PM EDT Radiology Service Progress Note PATIENT NAME: Aiden Fields DATE OF SERVICE: November 22, 2022 TIME: 12:08 PM PATIENT IDENTITY VERIFICATION COMPLETED USING TWO (2) IDENTIFIERS: Name and Date of confirmedby patient verbally. FALL SCREENING: Has the patient had 2 falls in the last year or 1 fall with injury or currently using an Ambulatory Assistive Device (Walker, Cane, Wheelchair, Crutches, etc.)? Yes, Patient High Riskfor Falls What interventions were put in place to prevent falls during this visit? Offered Assistance with Transfers/Clothing, Instructed Patient to Remain Seated (Not on Exam Table) Until Exam, and did sitting in chair PATIENT GENDER DATA: Female. status: : No status: NO. PATIENT RELEVANT IMPLANT DATA REVIEWED: Not Applicable RADIOLOGY DEPARTMENT: General X-ray: Exam(s) Completed: Chest X-Ray PERIPHERAL IV DATA: Not applicable SIGNED BY: RT Connor(R) November 22, 2022 12:08 PM documented in this encounterBet[facility]08-03-2023 NoteHNO ID: [id number] Author: Katarzyna Nance RT(R) Service: Radiology Author Type: Technologist Type: Progress Notes Filed: 11/22/2022 12:17 PM Note Text: Radiology Service Progress Note PATIENT NAME: Aiden Fields DATE OF SERVICE: November 22, 2022 TIME: 12:08 PM PATIENT IDENTITY VERIFICATION COMPLETED USING TWO (2) IDENTIFIERS: Name and Date of confirmed by patient verbally. FALL SCREENING: Has the patient had 2 falls in the last year or 1 fall with injury or currently using an Ambulatory Assistive Device (Walker, Cane, Wheelchair, Crutches, etc.)? Yes, Patient High Risk for Falls What interventions were put in place to prevent falls during this visit? Offered Assistance with Transfers/Clothing, Instructed Patient to Remain Seated (Not on Exam Table) Until Exam, and did sitting in chair PATIENT GENDER DATA: Female. status: : No status: NO. PATIENT RELEVANT IMPLANT DATA REVIEWED: Not Applicable RADIOLOGY DEPARTMENT: General X-ray: Exam(s) Completed: Chest X-Ray PERIPHERAL IV DATA: Not applicable SIGNED BY: RT Connor(R) November 22, 2022 12:08 [facility]08-03-2023 NoteHNO ID: [id number] Author: Eliel Blount APRN.CEMETERY LABORER Service: ? Author Type: Nurse Practitioner Type: Progress Notes Filed: 11/22/2022 12:42 PM Note Text: Subjective HPI Nontoxic-appearing female presents urgent care chief complaint cough. Duration of symptoms 3 weeks. Associated symptoms productive cough low-grade fever. States she is feeling better presents today due to family wanting her to be seen. Has used a cough suppressant this is helped. Denies any pain currently. No known sick contacts. Denies any high fevers chest pain shortness of breath pleuritic pain hemoptysis nausea vomiting abdominal pain or change in bowel or bladder habits. Past medical history prescription medication use allergies reviewed. .Patient presents with: Cough: Cough x 3 weeks PAST MEDICAL HISTORY Diagnosis Date Abdominal pain, left lower quadrant Abdominal pain, right lower quadrant Anxiety state, unspecified Breast cancer (HCC) left Colitis Depressive disorder, not elsewhere classified HTN (hypertension) Hypothyroidism Insomnia, unspecified Mitral valve disorders(424.0) Unspecified constipation PAST SURGICAL HISTORY Procedure Laterality Date ARTHROSCOPY KNEE DIAGNOSTIC W/WO SYNOVIAL BX SPX 2011 Arthroscopy, left knee COLONOSCOPY FLX DX W/COLLJ SPEC WHEN PFRMD 10/07/07 EYE SURGERY HX Left 10/21/2014 laser glaucoma surgery EYE SURGERY HX Right 11/04/2014 laser glaucoma surgery INSJ TUNNELED CTR VAD W/SUBQ PORT AGE 6 YR/> 3-11-13 RIGHT IJ MAST MODF RAD W/AX LYMPH NOD W/WO PECT/ANAID MIN 5-16-13 left OPEN TREATMENT PROXIMAL HUMERAL FRACTURE Right 06/13/2018 ORIF right shoulder proximal humerus PAST SURGICAL HISTORY OF lump removed from left side of neck as a child PAST SURGICAL HISTORY OF breast biopsies, negative PAST SURGICAL HISTORY OF 01/2008 DANDC PAST SURGICAL HISTORY OF 06/08/2009 Thyroidectomy PAST SURGICAL HISTORY OF 2011 ganglions cyst removed from left hand twice PAST SURGICAL HISTORY OF 06/06/2012 Left breast biopsy PAST SURGICAL HISTORY OF 06/26/2012 Left axillary biopsy PAST SURGICAL HISTORY OF 2014 right upper arm- removal of melanoma PAST SURGICAL HISTORY OF Left 10/21/2014 PAST SURGICAL HISTORY OF Right 11/04/2014 PAST SURGICAL HISTORY OF 09/2021 rib plating TONSILLECTOMY PRIMARY/SECONDARY Tonsillectomy ALLERGIES Antihistamines - Alkylamine, Benadryl [Diphenhydramine Hcl], and Neosporin [[id number]-Tfqzuyvgtn-Jvtrgetsx] MEDICATIONS oxyCODONE IR (ROXICODONE) 5 mg immediate release tablet Take 5-10 mg by mouth every 4 hours as needed for pain. acetaminophen (TYLENOL) 325 mg tablet Take 3 tablets by mouth every 6 hours as needed for pain. memantine (NAMENDA) 5 mg tablet Take 1 tablet by mouth daily at bedtime. polyvinyl alcohol-povidone (REFRESH) 1.4-0.6 % ophthalmic solution Use 1 Drop in both eyes as needed. clonazePAM (KLONOPIN) 1 mg tablet Take 1 mg by mouth. Take one tablet by mouth five times a day as needed meclizine (ANTIVERT) 25 mg tab Take 25 mg by mouth three times daily as needed. pregabalin (LYRICA) 75 mg capsule Take 75 mg by mouth twice daily. valACYclovir (VALTREX) 1 gram Take 1,000 mg by mouth once daily. potassium chloride (KLOR-CON) 20 mEq packet Take 40 mEq by mouth once daily. With food Magnesium 250 mg tab Take 500 mg by mouth as directed. polyethylene glycol 3350 (MIRALAX, GLYCOLAX) 17 gram/dose powder Take 17 g by mouth once daily. levothyroxine (SYNTHROID) 125 mcg tablet Take 125 mcg by mouth once daily. calcitriol (ROCALTROL) 0.5 mcg capsule Take 1 capsule by mouth once daily. indapamide (LOZOL) 1.25 mg tablet Take 1.25 mg by mouth every morning. pyridoxine (VITAMIN B6) 100 mg tablet Take 100 mg by mouth once daily. Cholecalciferol, Vitamin D3, 1,000 unit tab Take 1 tablet by mouth once daily. docusate sodium (COLACE) 100 mg ORAL Cap Take three capsules by mouth twice daily as needed. glycerin(COLACE (GLYCERIN) 1.5 G RECT SUPP) Insert one suppository into rectum once daily FAMILY HISTORY Problem Relation Age of Onset Heart Mother stents None Father suicide, depression age 68. Heart Sister Thyroid Sister Social History Tobacco Use Smoking status: Former Packs/day: 0.50 Years: 40.00 Total pack years: 20.00 Types: Cigarettes Quit date: 02/2019 Years since quittin.7 Smokeless tobacco: Never Vaping Use Vaping Use: Never used Substance Use Topics Alcohol use: No Drug use: No BP 110/64 Pulse 85 Temp 37.6 ?C (99.6 ?F) (Tympanic) Resp 18 Wt 68 kg (150 lb) SpO2 93% BMI 24.21 kg/m? Review of Systems Constitutional: Negative for chills, fever and malaise/fatigue. HENT: Negative for congestion, ear discharge, ear pain, sinus pain and sore throat. Eyes: Negative for blurred vision, pain, discharge and redness. Respiratory: Positive for cough and sputum production. Negative for hemoptysis, shortness of breath, wheezing and stridor. (more content not included)...[facility]08-03-2023 History of Present illness Narrative* Eliel Blount, RIO.[facility] - 11/22/2022 11:57 AM EDT Subjective HPI Nontoxic-appearing female presents urgent care chief complaint cough. Duration of symptoms 3 weeks.Associated symptoms productive cough low-grade fever. States she is feeling better presents today due to family wanting her to be seen. Has used a cough suppressant this is helped. Denies any pain currently. No known sick contacts. Denies any high fevers chest pain shortness of breath pleuritic pain hemoptysis nausea vomiting abdominal pain or change in bowel or bladder habits. Past medical history prescription medication use allergies reviewed. .Patient presents with: Cough: Cough x 3 weeks PAST MEDICAL HISTORY Diagnosis Date Abdominal pain, left lower quadrant Abdominal pain, right lower quadrant Anxiety state, unspecified Breast cancer (HCC) left Colitis Depressive disorder, not elsewhere classified HTN (hypertension) Hypothyroidism Insomnia, unspecified Mitral valve disorders(424.0) Unspecified constipation PAST SURGICAL HISTORY Procedure Laterality Date ARTHROSCOPY KNEE DIAGNOSTIC W/WO SYNOVIAL BX SPX 2011 Arthroscopy, left knee COLONOSCOPY FLX DX W/COLLJ SPEC WHEN PFRMD 10/07/07 EYE SURGERY HX Left 10/21/2014 laser glaucoma surgery EYE SURGERY HX Right 11/04/2014 laser glaucoma surgery INSJ TUNNELED CTR VAD W/SUBQ PORT AGE 6 YR/> 3-11-13 RIGHT IJ MAST MODF RAD W/AX LYMPH NOD W/WO PECT/ANAID MIN 5-16-13 left OPEN TREATMENT PROXIMAL HUMERAL FRACTURE Right 06/13/2018 ORIF right shoulder proximal humerus PAST SURGICAL HISTORY OF lump removed from left side of neck as a child PAST SURGICAL HISTORY OF breast biopsies, negative PAST SURGICAL HISTORY OF 01/2008 D&C PAST SURGICAL HISTORY OF 06/08/2009 Thyroidectomy PAST SURGICAL HISTORY OF 2011 ganglions cyst removed from left hand twice PAST SURGICAL HISTORY OF 06/06/2012 Left breast biopsy PAST SURGICAL HISTORY OF 06/26/2012 Left axillary biopsy PAST SURGICAL HISTORY OF 2014 right upper arm- removal of melanoma PAST SURGICAL HISTORY OF Left 10/21/2014 PAST SURGICAL HISTORY OF Right 11/04/2014 PAST SURGICAL HISTORY OF 09/2021 rib plating TONSILLECTOMY PRIMARY/SECONDARY <AGE 13 Tonsillectomy ALLERGIES Antihistamines - Alkylamine, Benadryl [Diphenhydramine Hcl], and Neosporin [[id number]-Yygnqtzvaj-Dcylaxrfg] MEDICATIONS oxyCODONE IR (ROXICODONE) 5 mg immediate release tablet Take 5-10 mg by mouth every 4 hours as needed for pain. acetaminophen (TYLENOL) 325 mg tablet Take 3 tablets by mouth every 6 hours as needed for pain. memantine (NAMENDA) 5 mg tablet Take 1 tablet by mouth daily at bedtime. polyvinyl alcohol-povidone (REFRESH) 1.4-0.6 % ophthalmic solution Use 1 Drop in both eyes as needed. clonazePAM (KLONOPIN) 1 mg tablet Take 1 mg by mouth. Take one tablet by mouth five times a day as needed meclizine (ANTIVERT) 25 mg tab Take 25 mg by mouth three times daily as needed. pregabalin (LYRICA) 75 mg capsule Take 75 mg by mouth twice daily. valACYclovir (VALTREX) 1 gram Take 1,000 mg by mouth once daily. potassium chloride (KLOR-CON) 20 mEq packet Take 40 mEq by mouth once daily. With food Magnesium 250 mg tab Take 500 mg by mouth as directed. polyethylene glycol 3350 (MIRALAX, GLYCOLAX) 17 gram/dose powder Take 17 g by mouth once daily. levothyroxine (SYNTHROID) 125 mcg tablet Take 125 mcg by mouth once daily. calcitriol (ROCALTROL) 0.5 mcg capsule Take 1 capsule by mouth once daily. indapamide (LOZOL) 1.25 mg tablet Take 1.25 mg by mouth every morning. pyridoxine (VITAMIN B6) 100 mg tablet Take 100 mg by mouth once daily. Cholecalciferol, Vitamin D3, 1,000 unit tab Take 1 tablet by mouth once daily. docusate sodium (COLACE) 100 mg ORAL Cap Take three capsules by mouth twice daily as needed. glycerin(COLACE (GLYCERIN) 1.5 G RECT SUPP) Insert one suppository into rectum once daily FAMILY HISTORY Problem Relation Age of Onset Heart Mother stents None Father suicide, depression age 68. Heart Sister Thyroid Sister Social History Tobacco Use Smoking status: Former Packs/day: 0.50 Years: 40.00 Total pack years: 20.00 Types: Cigarettes Quit date: 02/2019 Years since quittin.7 Smokeless tobacco: Never Vaping Use Vaping Use: Never used Substance Use Topics Alcohol use: No Drug use: No BP 110/64 Pulse 85 Temp 37.6 C (99.6 F) (Tympanic) Resp 18 Wt 68 kg (150 lb) SpO2 93% BMI 24.21 kg/m Review of Systems Constitutional: Negative for chills, fever and malaise/fatigue. HENT: Negative for congestion, ear discharge, ear pain, sinus pain and sore throat. Eyes: Negative for blurred vision, pain, discharge and redness. Respiratory: Positive for cough and sputum production. Negative for hemoptysis, shortness of breath, wheezing and stridor. Cardiovascular: Negative for chest pain. Gastrointestinal: Negative for abdominal pain, diarrhea, nausea and vomiting. Musculoskeletal: Negative for myalgias. Skin: Negative for itching and rash. Neurological: Negative for dizziness and headaches. Objective Physical Exam Constitutional: General: She is not in acute distress. Appearance: She is not diaphoretic. HENT: Head: Normocephalic. Jaw: No trismus, tenderness, swelling or pain on movement. Mouth/Throat: Mouth: Mucous membranes are moist. Pharynx: Oropharynx is clear. Uvula midline. No pharyngeal swelling, oropharyngeal exudate, posterior oropharyngeal erythema or uvula swelling. Eyes: Conjunctiva/sclera: Conjunctivae normal. Pupils: Pupils are equal, round, and reactive to light. Cardiovascular: Rate and Rhythm: Normal rate and regular rhythm. Heart sounds: Normal heart sounds. Pulmonary: Effort: Pulmonary effort is normal. No tachypnea, accessory muscle usage or respiratory distress. Breath sounds: Normal breath sounds. No stridor. No wheezing, rhonchi or rales. Abdominal: General: There is no distension. Palpations: Abdomen is soft. Tenderness: There is no abdominal tenderness. There is no guarding or rebound. Musculoskeletal: Cervical back: Normal range of motion and neck supple. No edema, erythema, rigidity or tenderness. No pain with movement. Normal range of motion. Lymphadenopathy: Cervical: No cervical adenopathy. Skin: General: Skin is warm and dry. Neurological: Mental Status: She is alert and oriented to person, place, and time. ASSESSMENT/PLAN: 1. Acute cough - ICD9: 786.2, ICD10: R05.1 (primary diagnosis) - XR CHEST 2V FRONTAL/LAT 2. SOB (shortness of breath) - ICD9: 786.05, ICD10: R06.02 IMPRESSION: No acute cardiopulmonary process. With ambulation patient's pulse ox dropped to 84%. Was sitting around 89-90 at baseline. This is abnormal for patient. Normal pulse ox is 97 to 100%. Differential include COVID-19 PE. With patient's increasing cough shortness of breath history of cancer concern about possible PE. Patient treating symptoms I recommend patient be seen the ED for further evaluation care. Patient verbalized understand agrees with plan of care. Eliel Blount APRN.CEMETERY LABORER documented in this encounterBethesda North Hospital03-24-2023 History of Present illness Narrative* John Erazo RN - 07/13/2022 7:40 AM EDT Patient is here for IVAD port flush per Nursing [facility] protocol. IVAD is located in right upper chest. Site cleansed with Chloraprep IVAD accessed with a #20 gauge 3/4 non-coring Gripper needle Blood Return: Good Flushed with: 20 ml Normal Saline and 5 ml Heparin Lock Flush Non-coring needle removed. Paper tape applied to puncture site. Port site negative for redness, edema or tenderness. Patient tolerated procedure well. documented in this encounterBethesda North Hospital03-13-[address] Ly [facility] July 02, 2022 8:37pm Note Date/Time July 02, 2022 5:2 4pm [facility] Medical Records Department [address] [place] [address] Emergency Department Summary 07/02/22 MR#: [id number] Acct: [id number] Name: AIDEN FIELDS Rep #:[id number] : 1945 76 From: Sim Ly MD PCP: Dr. Erica Richardson, DO Status:REG ER Location: ED HPI History of Present Illness Chief Complaint: Fall Informant: patient and other (Healthcare registered dental assistant rda) Narrative Narrative: Patient was walking in her house. She used a walker. She got the walker caughton the edge of the carpet causing her to fall forward. She hit her head. Denies loss of consciousness and she is not on blood thinners. She has pain mostly in the right upper forehead where she has a laceration. She states thereis just a funny feeling to her right upper lip it feels like she bruised it Patient did have a fall almost a year ago with significant injuries to her ribs and head and neck. She had surgery and was in rehab for almost 6 months relearning to walk. She is still somewhat unstable. This fall was mechanical. She never lost consciousness and did not have palpitations or lightheadedness. [facility] Medical History Alcohol abuse Alcohol intoxication Anemia Anxiety Arthritis Back problem Benzodiazepine dependence Bladder infection Bone fracture Breast cancer Breast cancer Breast lump BROKEN ARM REPAIR Calcium deficiency Cancer Debility Depression Depression Fall Frequent falls GERD (gastroesophageal reflux disease) Glaucoma High cholesterol High triglycerides History of recent fall HTN (hypertension) Hypertension Hypokalemia Hypomagnesemia Hyponatremia Hypoparathyroidism after procedure Hypothyroidism Hypothyroidism Hypothyroidism (acquired) Melanoma Multiple rib fractures Opioid dependence Pancreatitis Parathyroid abnormality Pneumonia Postsurgical hypoparathyroidism Postsurgical hypothyroidism Rheumatoid arthritis Right arm fracture Scalp laceration Skin cancer Subdural hematoma Tobacco abuse UTI (urinary tract infection) Vitamin D deficiency Home Medications buspirone 5 mg tablet 5 tablet PO DAILY MOOD 08/01/20 [History Last Taken 03/07/21] folic acid-vit B6-vit B12 2.5 mg-25 mg-1 mg tablet 1 ea PO DAILY SUPPLEMENT 08/01/20 [History Last Taken 03/08/21] indapamide 1.25 mg tablet 1.25 mg PO DAILY HEART 08/01/20 [History Last Taken 03/08/21] letrozole 2.5 mg tablet 2.5 mg PO DAILY 08/01/20 [History Last Taken 03/08/21] nortriptyline 50 mg capsule 50 mg PO QHS 08/01/20 [History Last Taken 03/07/21] potassium chloride 20 mEq tablet,extended release(part/cryst) 20 meq PO BID SUPPLEMENT 08/01/20 [History Last Taken 03/08/21] valacyclovir 1 gram tablet 1,000 mg PO DAILY SHINGLES 08/01/20 [History Last Taken 03/08/21] famotidine 20 mg tablet (Pepcid) 20 mg PO BID GERD 03/08/21 [History Last Taken 03/07/21] lisinopril 10 mg tablet 10 mg PO DAILY BP 03/08/21 [History Last Taken 03/08/21] pregabalin 50 mg capsule 50 mg PO BID PAIN 03/08/21 [History Last Taken 03/08/21] cyclobenzaprine 5 mg tablet 5 mg PO TID PRN PRN Muscle Spasm #10 tabs 03/09/21 [Rx Last Taken Unknown] dexamethasone sodium phosphate 0.1 % eye drops 1 drp ophthalmic (eye) BID glaucoma 03/09/21 [History Last Taken 03/08/21 06:00] oxycodone 5 mg tablet 5 mg PO Q6H PRN pain 3 days #12 tabs 03/09/21 [Rx Last Taken Unknown] meclizine 25 mg tablet 25 mg PO Q8H PRN PRN Dizziness #20 tabs 05/21/21 [Rx Last Taken Unknown] hydrocodone 10 mg-acetaminophen 325 mg tablet 1 tab PO Q4H PRN PRN Pain 06/11/21[History Last Taken Unknown] calcitriol 0.5 mcg capsule 0.5 mcg PO DAILY #90 caps 08/07/21 [Rx Last Taken Unknown] calcium carb,cit ER 600 mg-vit D3 12.5 mcg (500 unit) tablet,ext.rel (Citracal- D3 Slow Release) 1 tab PO DAILY #1 TAB 08/07/21 [Rx Last Taken Unknown] levothyroxine 125 mcg tablet 125 mcg PO DAILY #90 tabs 08/28/21 [Rx Last Taken Unknown] clonazepam 1 mg tablet 1 mg PO BID #6 tabs 03/03/22 [Rx Last Taken Unknown] pregabalin 75 mg capsule 75 mg PO TID #9 caps 03/03/22 [Rx Last Taken Unknown] Allergy/AdvReac Type Severity Reaction Status Date / Time bacitracin Allergy Unknown Unknown Verified 07/02/22 16:16 [From Neosporin ([id number])] neomycin Allergy Unknown Unknown Verified 07/02/22 16:16 [From Neosporin ([id number])] polymyxin B Allergy Unknown Unknown Verified 07/02/22 16:16 [From Neosporin (enz-aon-eielw)] Antihistamines - Alkylamine Allergy PT UNSURE Verified 07/02/22 16:16 OF REACTION diphenhydramine Allergy PT UNSURE Verified 07/02/22 16:16 [From Benadryl] OF REACTION Family History Unknown Thyroid disorder Cancer High cholesterol Arthritis Mother Cancer Diabetes Father , Father at the age of 50 from successful suicide attempt. Suicidal intent Other Alcohol abuse Anxiety Depression Heart disease Hypertension Mental disorder Parkinson disease Psychiatric care Surgical History H/O mastectomy H/O thyroidectomy Status post glaucoma surgery Social History household members: none Smoking Status: Former smoker second hand exposure: Yes alcohol intake: never substance use type: does not use ROS ROS ED Constitutional Constitutional ED: Denies chills, fever(s) or subjective Eyes Eyes: Denies change in vision ENT ENT ED: Reports other Details: Fullness feeling to her right upper lip and teetharea but not really painful. She does have a laceration above her right eye that is currently dressed and not bleeding. ; Denies rhinorrhea or sore throat Cardiovascular Cardiovascular: Denies chest pain or palpitations Respiratory/Chest Respiratory/Chest: Denies cough or dyspnea Gastrointestinal Gastrointestinal: Denies abdominal pain, nausea or vomiting Genitourinary Genitourinary ED: Denies hematuria Musculoskeletal Musculoskeletal: Denies back pain or neck pain Integumentary Reports other Details: Laceration of forehead Neurologic Neurologic: Reports headache(s) and other Details: Patient actually has pain really in the right forehead rather than true diffuse headache. Endocrine Endocrinology: Denies polydipsia Hematologic/Lymphatic Hematologic/Lymphatic: Denies easy bleeding or easy bruising Allergic/Immunologic Allergic/Immunologic ED: Denies urticaria EXAM Physical Exam Narrative Exam Narrative: Patient is awake alert no acute distress. She has a dressing on her forehead. This will be looked at after CT to avoid initiating bleeding that delays her evaluation. HEENT: Dressing as above. Her teeth actually meet normally. They are not mobile. They are not tender. I do not see any lacerations. There is a little bit of fullness of the right lip but no significant swelling. Oropharynx is normal. The laceration was not examined at this time as bleeding is controlled. Neck is not showing any tenderness. Lungs are clear to auscultation. Breathing is easy and unlabored. Saturations are normal at 99% on room air. Heart is regular. Not muffled. Peripheral pulses are equal. Abdomen is soft and nontender. Back shows no tenderness at the cervical thoracic and lumbar area. Extremities show no abrasions or tenderness or deformity. I moved her lower andupper extremities and pressed on the clavicle and scapula no tenderness in theseareas. Neurologically she is awake alert appropriate and acting normally per the healthaide that is with this. Of note, patient was asking something for pain. The health aide let us know by text on the phone that this patient has had problems with narcotics. The patient's daughter would like to try to avoid narcotics initially on her because of this. Const Vital Signs: 07/02/22 16:14 Temperature 97.3 F L Temperature Source Temporal Pulse Rate 73 Respiratory Rate 16 Blood Pressure 150/76 H Blood Pressure Mean 100 Pulse Ox 99 Oxygen Delivery Method Room Air MDM MDM MDM Narrative Medical decision making narrative: My independent interpretation of the patient's CT does show an orbital blowout fracture. There does not appear to be any acute entrapment. Final reading is also consistent with a right orbital floor fracture and possible nondisplaced right medial orbital wall fracture Procedure: Suture laceration: We then turned our attention to the laceration above the right eye. This was 3 cm in length. The upper portion had a separate laceration going at about 30 degrees from this. It was not bleeding. It was cleansed. We anesthetized it with 3 cc of 1% lidocaine with epinephrine locally with good anesthesia. The area was then scrubbed. It was irrigated. It was sterilely prepped and draped. It was sutured with 6 interrupted 6-0 Ethilon sutures. 1 of these grabbed all 3 portions of the laceration to pull them together. It closed with good cosmesis hemostasis and patient tolerated this well. Sutures out in about 5 days. I talk with both patient and her daughter. Patient does have some narcotic painmeds at home. Her daughter states that she does not need anymore because they have plenty. I explained that she may need some for this fracture. These usually heal well. She does have an appointment with her lime burner already in about 3 days. She was going to cancel that but I explained she should keep that. For 1 reason she broke her glasses in this fall and that is what thought to have caused a laceration. But they can also recheck this laceration and clinically how she is doing. At this point she has no limitationof upward gaze or facial anesthesia. She has a blowout fracture but no sign of entrapment clinically. Radiography Diagnostic Testing: Clinical Impression(s) from Imaging Studies Brain CT 07/02/22 17:16 IMPRESSION: No acute intracranial findings. Right orbital floor fracture. Possible nondisplaced right medial orbital wall fracture. Electronically Signed: Avni Velasco MD at 18:14 EDT , Cervical Spine CT 07/02/22 17:16 IMPRESSION: No acute cervical spine osseous injury. Electronically Signed: Avni Velasco MD at 18:21 EDT , Facial/Sinus 07/02/22 17:16 IMPRESSION: No acute intracranial findings. Right orbital floor fracture. Possible nondisplaced right medial orbital wall fracture. Electronically Signed: Avni Velasco MD at 18:17 EDT , Discharge Plan Triage Chief Complaint: Fall ED Provider: Sim Ly Dx/Rx/DC Orders Clinical Impression: Fall at home, Fracture of right orbital floor, Forehead laceration, Sutured skin wound Instructions: ED Facial Fracture, ED Head Injury (Adult), Face Laceration Stitches Tape?Ch Prescriptions: No Action valacyclovir 1 gram tablet 1,000 mg PO DAILY Label Comments: TAKE 1 TABLET BY MOUTH THREE TIMES A DAY letrozole 2.5 mg tablet 2.5 mg PO DAILY Label Comments: TAKE 1 TABLET BY MOUTH EVERY DAY indapamide 1.25 mg tablet 1.25 mg PO DAILY Label Comments: TAKE 1 TABLET BY MOUTH EVERY DAY IN THE MORNING potassium chloride 20 mEq tablet,ER particles/crystals 20 meq PO BID Label Comments: TAKE 1 TABLET BY MOUTH EVERY OTHER DAY folic acid-vit B6-vit B12 2.5-25-1 mg tablet 1 ea PO DAILY Label Comments: TAKE 1 TABLET BY MOUTH EVERY DAY buspirone 5 mg tablet 5 tablet PO DAILY nortriptyline 50 mg capsule 50 mg PO QHS calcium carb and citrate-vitD3 [Citracal-D3 Slow Release] 600 mg-12.5 mcg (500unit) tablet extended release 1 tab PO DAILY Qty: 1 0RF calcitriol 0.5 mcg capsule 0.5 mcg PO DAILY Qty: 90 3RF Rx Instructions: please discontinue any rx for calcitriol by an other doctors lisinopril 10 mg tablet 10 mg PO DAILY pregabalin 50 mg capsule 50 mg PO BID famotidine [Pepcid] 20 mg tablet 20 mg PO BID dexamethasone sodium phosphate 0.1 % drops 1 drp ophthalmic (eye) BID Rx Instructions: R eye only oxycodone 5 mg Tablet 5 mg PO Q6H PRN (Reason: pain) 3 Days Qty: 12 0RF cyclobenzaprine 5 mg Tablet 5 mg PO TID PRN PRN (Reason: Muscle Spasm) Qty: 10 0RF meclizine [meclizine] 25 MG tablet 25 mg PO Q8H PRN PRN (Reason: Dizziness) Qty: 20 0RF hydrocodone-acetaminophen 10-325 mg tablet 1 tab PO Q4H PRN PRN (Reason: Pain) levothyroxine 125 mcg tablet 125 mcg PO DAILY Qty: 90 3RF Rx Instructions: Please discontinue any levothyroxine orders from any other doctors clonazepam 1 mg tablet 1 mg PO BID Qty: 6 0RF pregabalin 75 mg capsule 75 mg PO TID Qty: 9 0RF Primary Care Provider: Erica Richardson Referrals: Erica Richardson DO [Primary Care Provider] - 5 Days for suture removal Activity Restrictions/Additional Instructions: Follow-up with your lime burner as scheduled. Disposition Disposition: Home, Self Care What to do if you have Problems For any increased pain, shortness of breath, bleeding, nausea or vomiting, chestpain, or any unexpected problems, contact your Primary Care Provider. Call [facility] ([phone]) or report to the closest Emergency Room. Call 911 if necessary. 07/02/222036 <Electronically signed by Sim Ly MD> Cosigner Signature (if applicable): CC: Dr. Erica Richardson DO ~ Signed [facility] Work Phone: [phone] History of Present illness Narrative* Radha Suarez RN - 06/15/2022 2:42 PM EST Patient is here for IVAD port flush per Nursing [facility] protocol. IVAD is located in right upper chest. Site cleansed with Chloraprep IVAD accessed with a #20 gauge 3/4 non-coring Gripper needle Blood Return: Good Flushed with: 20 ml Normal Saline and 5 ml Heparin Lock Flush Non-coring needle removed. Paper tape applied to puncture site. Port site negative for redness, edema or tenderness. Patient tolerated procedure well. documented in this encounterBethesda [facility] Hospital01-04-2023 History of Present illness Narrative* Radha Suarez RN - 04/25/2022 1:35 PM EST Patient is here for IVAD port flush per Nursing [facility] protocol. IVAD is located in right upper chest. Site cleansed with Chloraprep IVAD accessed with a #20 gauge 3/4 non-coring Gripper needle Blood Return: Good Flushed with: 20 ml Normal Saline and 5 ml Heparin Lock Flush Non-coring needle removed. Paper tape applied to puncture site. Port site negative for redness, edema or tenderness. Patient tolerated procedure well. documented in this encounterBethesda North Hospital09-20-2022 [facility] History of Present illness Narrative* All Tsang MD - 01/09/2022 1:15 PM EDT NEUROSURGERY FOLLOW UP OFFICE NOTE Dr. All Tsang MD, [facility] Date of visit: January 09, 2022 Patient Name: Ms.Barbara John Fields Date of : 1945 Current Age: [age] year old Sex: female MRN/E# [id number] Last Office Visit: 11/03/2021 Chief Complaint: Patient presents with: Established Patient SUBJECTIVE: The patient presents as a follow-up with imaging (MRI B) for evaluation. This is a 76-year-old female with a history of breast cancer and melanoma who was seen in consult at [facility] on 10/07/[address] Delgado after a mechanical fall down a few steps. She was taking low dose ASA prior to fall. Imaging demonstrated a right parietal parenchymal hemorrhagic contusion versus a hyperdense metastatic focus. She was also found to have a tension pneumo/hemo thorax, left upper and lower lobe contusions, sternal manubrial fracture, left maxillary sinus fracture, left scapular fracture, left distal clavicle fracture, multiple left rib fractures with flail segments and an old left humerus fracture. No surgical intervention was indicated. Repeat CTs remained stable. CTA was negative. MRI of the brain noted was obtained due to a noted hyperdensity. Once completed it was felt that the hyperdensity likely represented the area of contusion. She was seen in follow-up on 11/03/2021 by Sherice Rosenberg APRN.CNP with CT brain prompting. She reported that she was overall doing well and denied headache, visual changes, speech deficits, seizure activity. She was residing in a [facility] and was working with physical therapy given her multiple fractures. Neurologically she was intact on exam without focal deficit however she was wheelchair-bound. CT of the brain was reviewed and showed an interval resolutionof the bleeds without new acute intracranial hemorrhages noted. Recommendation was to follow-up in 2 months MRI of the brain for continued evaluation to rule out underlying metastatic brain lesion orprompting her visit today. Last visit she states she is overall stable. She denies any headaches, confusion or new weakness. She continues to be in a rehab facility and is slowly starting therapy. She presents for image review, evaluation and plan of care. Symptoms: None PREVIOUS CONSERVATIVE TREATMENTS: Physical and Occupational Therapy Opiate pain medications-oxycodone IR Membrane stabilizers-pregabalin PREVIOUS SURGERY: None PAIN EVALUATION No data found in the last 1 encounters. PAST MEDICAL HISTORY Diagnosis Date Abdominal pain, left lower quadrant Abdominal pain, right lower quadrant Anxiety state, unspecified Breast cancer (HCC) left Colitis Depressive disorder, not elsewhere classified HTN (hypertension) Hypothyroidism Insomnia, unspecified Mitral valve disorders(424.0) Unspecified constipation PAST SURGICAL HISTORY Procedure Laterality Date ARTHROSCOPY KNEE DIAGNOSTIC W/WO SYNOVIAL BX SPX 2011 Arthroscopy, left knee COLONOSCOPY FLX DX W/COLLJ SPEC WHEN PFRMD 10/07/07 EYE SURGERY HX Left 10/21/2014 laser glaucoma surgery EYE SURGERY HX Right 11/04/2014 laser glaucoma surgery INSJ TUNNELED CTR VAD W/SUBQ PORT AGE 5 YR/> 3-11-13 RIGHT IJ MAST MODF RAD W/AX LYMPH NOD W/WO PECT/ANAID MIN 5-16-13 left OPEN TREATMENT PROXIMAL HUMERAL FRACTURE Right 06/13/2018 ORIF right shoulder proximal humerus PAST SURGICAL HISTORY OF lump removed from left side of neck as a child PAST SURGICAL HISTORY OF breast biopsies, negative PAST SURGICAL HISTORY OF 01/2008 D&C PAST SURGICAL HISTORY OF 06/08/2009 Thyroidectomy PAST SURGICAL HISTORY OF 2011 ganglions cyst removed from left hand twice PAST SURGICAL HISTORY OF 06/06/2012 Left breast biopsy PAST SURGICAL HISTORY OF 06/26/2012 Left axillary biopsy PAST SURGICAL HISTORY OF 2014 right upper arm- removal of melanoma PAST SURGICAL HISTORY OF Left 10/21/2014 PAST SURGICAL HISTORY OF Right 11/04/2014 PAST SURGICAL HISTORY OF 09/2021 rib plating TONSILLECTOMY PRIMARY/SECONDARY <AGE 13 Tonsillectomy FAMILY HISTORY Problem Relation Age of Onset Heart Mother stents None Father suicide, depression age 68. Heart Sister Thyroid Sister ALLERGIES Allergen Reactions Antihistamines - Al* Intolerance wires her Benadryl [Diphenhyd* rapid heart beat/gets real excitable Neosporin [Neomycin* contact dermatitis post op Current Outpatient Medications Medication Sig Dispense Refill oxyCODONE IR (ROXICODONE) 5 mg immediate release tablet Take 5-10 mg by mouth every 4 hours as needed for pain. acetaminophen (TYLENOL) 325 mg tablet Take 3 tablets by mouth every 6 hours as needed for pain. memantine (NAMENDA) 5 mg tablet Take 1 tablet by mouth daily at bedtime. polyvinyl alcohol-povidone (REFRESH) 1.4-0.6 % ophthalmic solution Use 1 Drop in both eyes as needed. clonazePAM (KLONOPIN) 1 mg tablet Take 1 mg by mouth. Take one tablet by mouth five times a day as needed meclizine (ANTIVERT) 25 mg tab Take 25 mg by mouth three times daily as needed. pregabalin (LYRICA) 75 mg capsule Take 75 mg by mouth twice daily. valACYclovir (VALTREX) 1 gram Take 1,000 mg by mouth once daily. potassium chloride (KLOR-CON) 20 mEq packet Take 40 mEq by mouth once daily. With food Magnesium 250 mg tab Take 500 mg by mouth as directed. polyethylene glycol 3350 (MIRALAX, GLYCOLAX) 17 gram/dose powder Take 17 g by mouth once daily. levothyroxine (SYNTHROID) 125 mcg tablet Take 125 mcg by mouth once daily. calcitriol (ROCALTROL) 0.5 mcg capsule Take 1 capsule by mouth once daily. 90 capsule 4 indapamide (LOZOL) 1.25 mg tablet Take 1.25 mg by mouth every morning. pyridoxine (VITAMIN B6) 100 mg tablet Take 100 mg by mouth once daily. Cholecalciferol, Vitamin D3, 1,000 unit tab Take 1 tablet by mouth once daily. 0 docusate sodium (COLACE) 100 mg ORAL Cap Take three capsules by mouth twice daily as needed. glycerin(COLACE (GLYCERIN) 1.5 G RECT SUPP) Insert one suppository into rectum once daily 0 No current facility-administered medications for this visit. REVIEW OF SYSTEMS Review of Systems Constitutional: Negative for chills, diaphoresis (Negative for night sweats.) and fever. HENT: Negative for ear discharge and rhinorrhea. Eyes: Negative for discharge. Respiratory: Negative for cough, shortness of breath and wheezing. Cardiovascular: Negative for chest pain, palpitations and leg swelling. Gastrointestinal: Negative for constipation, diarrhea, nausea and vomiting. Endocrine: Negative for cold intolerance and heat intolerance. Genitourinary: Negative for frequency. Negative for urinary incontinence and urinary retention. Musculoskeletal: Positive for gait problem. Negative for back pain, joint swelling, myalgias and neck pain. Skin: Negative for rash (Negative for hives and skin lesions.). Allergic/Immunologic: Negative for environmental allergies and food allergies. Negative for contact allergy, seasonal allergies. Neurological: Positive for weakness and numbness (Negative for numbness in extremities.). Negative for dizziness, seizures, syncope, light-headedness and headaches. Hematological: Does not bruise/bleed easily. Psychiatric/Behavioral: The patient is not nervous/anxious. Negative for depression. OBJECTIVE: BP 110/64 Pulse 66 Ht 5' 6 (1.68m) Wt 125 lb (56.7kg) SpO2 97% BMI 20.19 kg/(m^2). PHYSICAL EXAM: Mental State : Alert, memory function unremarkable. Attention span and concentration Normal for patient's age. Recent and remote memory normal Orientation : Oriented to time place and person Higher Cortical Function : Intact speech and language. Spontaneous speech and comprehension normal.Fund of knowledge intact for pt level of education. Cranial Nerves : II: No visual field cut no blurring. Makes and sustains eye contact III, IV, normal, no double vision or drooping. Pupils equal and reactive to light. Extraocular muscles intact. No nystagmus V Normal sensation on the face, normal jaw movements VII No paresis on either side. VIII No gross hearing deficit IX Normal palatal movements XI Good and equal shoulder shrus XII Tongue midline, no fasciculation Sensory : Normal Sensation in upper and lower extremities and trunk to touch and Noxious stimuli. Motor : Normal muscle tone and bulk. No tremor or uncontrollable movements No spasticity . Strength: Upper Extremities : R L Deltoid 5 5 Biceps 5 5 Triceps 5 5 Wrist Ext 5 5 Wrist Flx 5 5 Hand Int. 5 5 Lower Extremities : Hip Flexors 5 5 Hip Extensors 5 5 Hip Abductors 5 5 Hip Adductors 5 5 Quads 5 5 Hamstrings 5 5 Ankle dorsiflex 5 5 Ankle plantars 5 5 Heel Walking 5 5 Toe Walking 5 5 Reflexes : Biceps 2 2 Triceps 2 2 Wrist 2 2 Patellar 2 2 Achilles 2 2 Santillan's Neg Neg Plantars Neg Neg Cerebellar Function : Normal finger to nose and rapid alternating movements. No ataxia Gait and Station: Normal She is sitting in a wheelchair and her head is held tilted towards the right side because her daughter says that she has had a trauma to the cervical spine that did not require surgery and she had multiple rib fractures. ASSESSMENT/PLAN: 1. SDH (subdural hematoma) - ICD9: 432.1, ICD10: S06.5X9A (primary diagnosis) 2. Cerebral hemorrhage (HCC) - ICD9: 431, ICD10: I61.9 Patient is here because she had an MRI in order to assess a small cortical hemorrhage after her trauma for concern about any underlying lesion. The MRI shows clearance of the subdural hematoma and clearance of the acute blood in the gyrus with no evidence of enhancement to suggest an underlying lesion. I reassured the patient and her daughter about this and recommended no follow-up at this time unless she develops neurological issues for which she should go to the emergency room. All Tsang MD IMAGING: MRI Brain WO/W IVCON performed on 01/04/22 demonstrates: IMPRESSION: Resolution of intracranial hemorrhage as described with small amount of blood products. No acute intracranial process. No intracranial mass or abnormal intracranial enhancement. Chronic changes as described. Follow Up: Return if symptoms worsen or fail to improve, for new or worsening symptoms. This note was partially generated using [employer] voice recognition system, and there may be some incorrect words, spellings, and punctuation that were not noted in checking the note before saving. documented in this encounterBethesda North Hospital09-15-2022 History of Present illness Narrative* Erica Desai, RT(R) - 01/04/2022 1:40 PM EDT Radiology Service Progress Note PATIENT NAME: Aiden Fields DATE OF SERVICE: January 04, 2022 TIME: 2:02 PM PATIENT IDENTITY VERIFICATION COMPLETED USING TWO (2) IDENTIFIERS: Name and Date of confirmedby patient verbally. FALL SCREENING: Has the patient had 2 falls in the last year or 1 fall with injury or currently using an Ambulatory Assistive Device (Walker, Cane, Wheelchair, Crutches, etc.)? No PATIENT GENDER DATA: Female. status: : No status: NO. PATIENT RELEVANT IMPLANT DATA REVIEWED: Yes RADIOLOGY DEPARTMENT: MR; Exam(s) Completed: Head: Routine Brain PERIPHERAL IV DATA: Site assessment: Clean,Dry and Intact, Site disposition Discontinued SIGNED BY: RT Juan(R) January 04, 2022 2:02 PM documented in this encounterBethesda North Hospital09-14-2022 Miscellaneous Notes* Telephone Encounter - Tsering Castillo - 01/03/2022 12:19 PM EDT Patient has been scheduled for port access at 1:30 pm tomorrow and I did let patient's nurse at [facility] know this, she confirmed patient's arrival time. Tsering Castillo * Telephone Encounter - KATIE Rivas - 01/03/2022 10:55 AM EDT Pt would like to use port for appt on 01/04/22 for MRI @ 1:40pm Please call pt to let them know what time to come in please documented in this encounterBethesda North Hospital07-15-2022 [facility]07-14-2022 [facility]-14-2022 History of Present illness Narrative* Denys Bolden PA-C - 11/02/2021 3:17 PM EDT Images from the original note were not included. Trauma Clinic Note SERVICE DATE: 11/02/2021 Trauma Service Pager: For questions or concerns Mon-Fri 6a-5p please page [phone]. After 5pm and on Weekends and Holidays, please page [phone] if in ICU or [phone] if on RNF. SUBJECTIVE: Patient presents to the trauma clinic with her daughter. She came from her halfway facility. She is here for rib plating follow up. She denied any SOB, Difficulty breathing, OLIVA, N/V, ABD pain, fevers, chills, or cough. She is tolerating her diet and having bowel function. Her only complaintis of continued significant pain (mostly of her left scapula, left clavicle, and chronic back pain). She stated the physician at her SNF has increased her Roxicodone to 10 mg q4 as needed. OBJECTIVE: Vitals: BP 112/74 Pulse 86 Resp 20 Ht 167.6 cm (5' 6) Wt 64 kg (141 lb) SpO2 95% BMI 22.76 kg/m PHYSICAL EXAM: Genl: Appears age appropriate. No acute distress. Resting comfortably. Head/Face: Normocephalic. Atraumatic. Eyes: EOMI. Sclera not icteric, not injected Neck: No mid-line masses. C-spine non-tender. Back: LSO back brace in place. Resp: No audible wheezes. Breathing is non-labored on RA @95%. Previous left chest tube site is clean and dry. Her posterior left chest wall surgical site from rib plating was without any erythema, drainage, or foul odor. No crepitus present. Routine healing appreciated. CVS: HR as above; 2+ pulses at RA, DP bilat. GI: Abdomen is soft, non-tender, not distended. No peritonitis. MSK: Extremities without clubbing, cyanosis, edema. Normal ROM x 4. Skin: Warm and dry. Not jaundiced. Neuro: A&Ox3. Strength and sensation normal. FERNANDEZ. GCS15. ASSESSMENT AND PLAN: Problem List Items Addressed This Visit None Visit Diagnoses Closed fracture of multiple ribs with flail chest with routine healing, subsequent encounter - Primary 75 year old female s/p GLF on ASA on 10/06/2021 (transfer from [facility]) Traumatic Injuries: 1. Right frontal IPH 2. SDH along the falx and tentorial leaflets 3. Left C6 + C7 transverse process fractures 4. Nondisplaced left posterior 2nd rib fracture + displaced left 3-8 rib fractures with flail segments 5. Left tension pneumothorax + hemothorax + left pulmonary contusions and small laceration 6. Sternomanubrial fracture 7. Trace pneumomediastinum 8. Comminuted left inferior scapula fracture 9. Left distal clavicle fracture Operations/Procedures: 1. 10/06/2021 - Left chest tube placement ([facility]) 2. 10/09/2021 - VATS, rib plating (Dr. Vleazquez and Dr. Bruner) 3. 10/13/2021 - L chest tube removal bedside Plan of Care: 1. 2V CXR reviewed from today prior to her visit - radiology read is pending, no gross hemopneumothorax seen 2. Continue pulmonary hygiene at her SNF 3. Continue PT/OT at her SNF 4. Patient has orthopedic and neurosurgery follow up appointments coming up - encouraged her to notmiss these 5. Will defer her pain regimen to her PCP as she has been prescribing more narcotics than I am comfortable with 6. I also mentioned that she may need to become re-established with a pain management group moving forward 7. Discussed plan of care with Dr. Velazquez 8. Patient will need to follow up with trauma clinic again in 3 months for another 2 view chest x-ray Staff Trauma Surgeon: Dr. Velazquez SIGNATURE: Denys Bolden PA-C PATIENT NAME: Aiden Fields DATE: November 02, 2021 TIME: 3:26 PM Pager: [phone] (text page) documented in this encounterBethesda North Hospital07-14-2022 [facility]14[facility] Instructions* Patient Instructions* Denys Bolden PA-C - 11/02/2021 1:58 PM EDT - Please keep and maintain your neurosurgery and orthopedic surgery follow up appointments - Continue incentive spirometer use at your rehab facility - Recommend that you get re-established with your pain management group for ongoing narcotic pain needs - Leave your surgical site open to air - Please call if any erythema, drainage, or foul odor presents at your surgical site - You will need to return to the trauma clinic in 3 months for routine follow up and another 2 viewchest x-ray documented in this encounterBethesda North Hospital07-14-2022 History of Present illness Narrative* RT Castro(R) - 11/02/2021 12:20 PM EDT Radiology Service Progress Note PATIENT NAME: Aiden Fields DATE OF SERVICE: November 02, 2021 TIME: 12:30 PM PATIENT IDENTITY VERIFICATION COMPLETED USING TWO (2) IDENTIFIERS: Name and Date of confirmedby patient verbally and Name and Date of confirmed by identification band. FALL SCREENING: Has the patient had 2 falls in the last year or 1 fall with injury or currently using an Ambulatory Assistive Device (Walker, Cane, Wheelchair, Crutches, etc.)? Yes, Patient High Riskfor Falls What interventions were put in place to prevent falls during this visit? Yellow Falls Risk Wristband Applied, Instructed Patient to Call for Help if Needed, Instructed Patient to Remain Seated (Noton Exam Table) Until Exam and Increased Observations by Caregivers PATIENT GENDER DATA: Female. status: : No status: N/A PATIENT RELEVANT IMPLANT DATA REVIEWED: Not Applicable RADIOLOGY DEPARTMENT: General X-ray: Exam(s) Completed: Chest X-Ray PERIPHERAL IV DATA: Not applicable SIGNED BY: RT Castro(R) November 02, 2021 12:30 PM documented in this encounterBethesda North Hospital07-11-2022 History of Present illness Narrative* RT Belgica(R) - 10/30/2021 11:40 AM EDT Radiology Service Progress Note PATIENT NAME: Aiden Fields DATE OF SERVICE: October 30, 2021 TIME: 3:21 PM PATIENT IDENTITY VERIFICATION COMPLETED USING TWO (2) IDENTIFIERS: Name and Date of confirmedby patient verbally. FALL SCREENING: Has the patient had 2 falls in the last year or 1 fall with injury or currently using an Ambulatory Assistive Device (Walker, Cane, Wheelchair, Crutches, etc.)? No PATIENT GENDER DATA: Female. status: : No status: NO. PATIENT RELEVANT IMPLANT DATA REVIEWED: Not Applicable RADIOLOGY DEPARTMENT: CT; Exam(s) Completed: Brain PERIPHERAL IV DATA: Not applicable SIGNED BY: RT Mague(R) October 30, 2021 3:21 PM documented in this encounterBethesda North Hospital07-01-2022 Miscellaneous Notes* Telephone Encounter - Eva Dee Pss - 10/20/2021 9:45 AM EDT Left message with day and time of scheduled follow up appointments. Eva Dee Pss documented in this encounterBethesda North Hospital06-28-2022 [facility]20[facility]06-26-2022 [facility]06-25-2022 [facility]-24-2022 [facility]-24-2022 [facility]-23-2022 Note [facility]06-23-2022 Miscellaneous Notes* Telephone Encounter - Aiden Alanis LPN - 10/12/2021 4:30 PM EDT Pt's Sister Sami(a psych nurse) from [employer] called to update Dr Santos or Stalin Grimaldo that she and her family have concerns her sister is suicidal. States she has talked to her sister since being in the hospital and she is obsessing on the plans for her , being with her father and seems delusional today. States as of today she is saying she is not in pain and wants to go home. Sami feels that she is saying this to get home to possible do something to herself. The family is requesting A psych eval. Sami can be reached at [phone] . I called and notified Stalin POWERS who isgoing to talk to pt and the sister that is POA that is at the hospital now. Kev BRAVO documented in this encounterBethesda North Hospital06-23-2022 [facility]-22-2022 [facility]06-22-2022 [facility]06-21-2022 [facility]-21-2022 [facility]-21-2022 [facility]06-21-2022 Note [facility]06-20-2022 [facility] 10-09-2021 [facility]06-20-2022 [facility]06-20-2022 [facility] [place]06-20-2022 [facility] [place]-[place] NoteHNO ID: [id number] Author: Medhat Silveira RN Service: ? Author Type: Registered Nurse Type: Nursing Progress Note Filed: 10/09/2021 2:22 AM Note Text: Pt up to bsc with assist of 1 unable to void will bladder [facility]06-19-2022 [facility] [place]06-19-2022 [facility] [place]06-19-2022 [facility] [place]06-18-2022 Note [facility]03-23-2022 History of Present illness Narrative* Nicho Johnson MD - 07/12/2021 12:04 PM EDT Patient presents with: Ear Pain: right ear having pain and is plugged, stuffy nose, coughingx 1 week HPI: Feeling sick for 5 days. Fell and had middle ear infection 1 month ago-has been bothering her since. Left ear hurting today. Positive symptoms: Cough, Earache, Nasal Congestion, insomnia 6 days ( in August), feeling shaky, dizziness, Rhinorrhea, Post nasal drainage, Headache (above and below eyes), years of vision change, Negative symptoms: Fever, Nausea, Vomiting, Diarrhea, OTC: meclizine tid, tylenol Waiting for ENT appointment with Dr Dukes next week for initial consult for right ear pain and dizziness. She has had multiple falls. She and her caregiver are not clear on the timeline of these. The patient cannot say what doctor prescribed meclizine but she has been taking is scheduled after as a preventive after 1 episode of vertigo. She reports her PCP is not talking to her. PAST MEDICAL HISTORY Diagnosis Date Abdominal pain, left lower quadrant Abdominal pain, right lower quadrant Anxiety state, unspecified Breast cancer (HCC) left Colitis Depressive disorder, not elsewhere classified HTN (hypertension) Hypothyroidism Insomnia, unspecified Mitral valve disorders(424.0) Unspecified constipation Unspecified constipation MEDICATIONS: Current Outpatient Medications Medication Sig famotidine (PEPCID AC ORAL) Take by mouth once daily. potassium chloride (KLOR-CON) 20 mEq packet Take 20 mEq by mouth twice daily. vit C/E/zinc ox/thuan/lut/zeax (ICAPS AREDS2 ORAL) Take by mouth twice daily. busPIRone (BUSPAR) 5 mg tablet Take 5 mg by mouth once daily. cyanocobalamin/folic ac/vit B6 (FOLBEE ORAL) Take by mouth twice daily. Magnesium 250 mg tab Take 500 mg by mouth. pregabalin (LYRICA) 50 mg capsule Take 50 mg by mouth twice daily. HYDROcodone-acetaminophen (NORCO) 5-325 mg per tablet ONE TABLET BY MOUTH FOUR TIMES DAILY NEEDED polyethylene glycol 3350 (MIRALAX) 17 gram/dose powder Take 17 g by mouth once daily. levothyroxine (SYNTHROID) 125 mcg tablet Take 125 mcg by mouth once daily. CALCIUM CITRATE/VITAMIN D3 (CITRACAL + D ORAL) Take 2 tablets by mouth once daily. calcitriol (ROCALTROL) 0.5 mcg capsule Take 1 capsule by mouth once daily. nortriptyline (PAMELOR) 50 mg capsule Take 100 mg by mouth daily at bedtime. indapamide (LOZOL) 1.25 mg tablet Take 1.25 mg by mouth once daily. pyridoxine (VITAMIN B6) 100 mg tablet Take 100 mg by mouth once daily. VIT C/E/ZN/COPPR/LUTEIN/ZEAXAN (PRESERVISION AREDS 2 ORAL) Take 1 tablet by mouth once daily. phenazopyridine (PYRIDIUM) 200 mg tablet Take 1 tablet by mouth three times daily as needed. Cholecalciferol, Vitamin D3, 1,000 unit tab Take 1 tablet by mouth once daily. Aspirin 81 mg tab Take 81 mg by mouth once daily. COMPOUNDED PRESCRIPTION L8030 Breast Prosehesis COMPOUNDED PRESCRIPTION L8020 Leisure Breast Form COMPOUNDED PRESCRIPTION L8000 Surgical/Mastectomy Bras Fiber cap Take 4 capsules by mouth once daily as needed. docusate sodium (COLACE) 100 mg ORAL Cap Take three capsules by mouth twice daily as needed. glycerin(COLACE (GLYCERIN) 1.5 G RECT SUPP) Insert one suppository into rectum once daily clonazepam(KLONOPIN 1 MG TAB) Take one tablet by mouth four times daily as needed. No current facility-administered medications for this visit. ALLERGIES: ALLERGIES Allergen Reactions Antihistamines - Al* Intolerance wires her Benadryl [Diphenhyd* rapid heart beat/gets real excitable Neosporin [Neomycin* contact dermatitis post op VITALS: BP 152/92 Pulse 97 Temp 37.9 C (100.3 F) Resp 21 Wt 60.6 kg (133 lb 9.6 oz) SpO2 98% BMI 21.56 kg/m PHYSICAL EXAM: GEN: Alert, in no acute distress, accompanied by friend/caregiver HEENT: PERRL, EOMI, conjunctiva clear Ears: canals clear. Right ear tender to exam. TMs without erythema, bulge, or effusion. Right TMJ tender to palpation Sinuses: non-tender frontal sinus, non-tender maxillary sinuses Throat: moist mucous membranes, no erythema, no exudate Neck: supple, no thyromegaly, no lymphadenopathy HEART: regular rate and rhythm, no murmurs LUNGS: clear to auscultation, no wheezes or crackles, no increased WOB NEURO: Alert and oriented to person and place, difficulty recalling history of relevant events. CN II-XII intact. Normal strength. Normal gait. No tremor. ASSESSMENT/PLAN: 1. Otalgia, right - ICD9: 388.70, ICD10: H92.01 (primary diagnosis) Informed she does not have an ear infection today. Pain may well be from fall, TMJ, or reported shingles - MELOXICAM 7.5 MG TABLET. Do not take with other OTC NSAIDs. 2. Vertigo - ICD9: 780.4, ICD10: R42 Unclear if this was a one time event or ongoing issue. Scheduled meclizine is probably not helpful and may be causing side effects. Follow up with PCP recommended. 3. URI, acute - ICD9: 465.9, ICD10: J06.9 - suspect viral URI, differential includes COVID-19. - COVID WITH FLUA+B, ROUTINE Nicho J Johnson, MD [facility] History of Present illness Narrative* Katarzyna Nance RT(R) - 03/17/2021 2:30 PM EST Radiology Service Progress Note PATIENT NAME: Aiden Fields DATE OF SERVICE: March 17, 2021 TIME: 2:30 PM PATIENT IDENTITY VERIFICATION COMPLETED USING TWO (2) IDENTIFIERS: Name and Date of confirmedby patient verbally. FALL SCREENING: Has the patient had 2 falls in the last year or 1 fall with injury or currently using an Ambulatory Assistive Device (Walker, Cane, Wheelchair, Crutches, etc.)? No PATIENT GENDER DATA: Female. status: : No status: NO. PATIENT RELEVANT IMPLANT DATA REVIEWED: Not Applicable RADIOLOGY DEPARTMENT: General X-ray: Exam(s) Completed: Upper Extremity X- Ray(s): Humerus, left PERIPHERAL IV DATA: Not applicable SIGNED BY: RT Connor(R) March 17, 2021 2:30 PM [facility] History of Past illness Narrative* Problem Noted Date Resolved Date 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 10/03/2012 Breast cancer 07/03/2012 02/11/2013 documented as of this encounter (statuses as of 07/17/2021) [facility] of Past illness Narrative* Problem Noted Date Resolved Date 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 10/03/2012 Breast cancer 07/03/2012 02/11/2013 documented as of this encounter (statuses as of 08/01/2021) [facility] of [facility] illness Narrative* Problem Noted Date Resolved Date 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 10/03/2012 Breast cancer 07/03/2012 02/11/2013 documented as of this encounter (statuses as of 08/29/2021) [place] [id number] History of Past illness Narrative* Problem Noted Date Resolved Date 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 10/03/2012 Breast cancer 07/03/2012 02/11/2013 documented as of this encounter (statuses as of 10/03/2021) [facility] illness Narrative* Problem Noted Date Resolved Date 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 10/03/2012 Breast cancer 07/03/2012 02/11/2013 documented as of this encounter (statuses as of 10/11/2021) [address]28-2013 History of Past illness Narrative* Problem Noted Date Resolved Date 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 10/03/2012 Breast cancer 07/03/2012 02/11/2013 documented as of this encounter (statuses as of 10/12/2021) [address]28-2013 History of Past illness Narrative* Problem Noted Date Resolved Date 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 10/03/2012 Breast cancer 07/03/2012 02/11/2013 documented as of this encounter (statuses as of 10/20/2021) [place] [id number] History of Past illness Narrative* Problem Noted Date Resolved Date 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 10/03/2012 Breast cancer 07/03/2012 02/11/2013 documented as of this encounter (statuses as of 10/31/2021) [place] [id number] History of Past illness Narrative* Problem Noted Date Resolved Date 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 10/03/2012 Breast cancer 07/03/2012 02/11/2013 documented as of this encounter (statuses as of 11/02/2021) [place] [id number] History of Past illness Narrative* Problem Noted Date Resolved Date 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 10/03/2012 Breast cancer 07/03/2012 02/11/2013 documented as of this encounter (statuses as of 11/03/2021) [place] [id number] History of Past illness Narrative* Problem Noted Date Resolved Date 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 10/03/2012 Breast cancer 07/03/2012 02/11/2013 documented as of this encounter (statuses as of 01/03/2022) [address]28-2013 History of Past illness Narrative* Problem Noted Date Resolved Date 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 10/03/2012 Breast cancer 07/03/2012 02/11/2013 documented as of this encounter (statuses as of 01/04/2022) [address]28-2013 History of Past illness Narrative* Problem Noted Date Resolved Date 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 10/03/2012 Breast cancer 07/03/2012 02/11/2013 documented as of this encounter (statuses as of 01/05/2022) [address]28-2013 History of Past illness Narrative* Problem Noted Date Resolved Date 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 10/03/2012 Breast cancer 07/03/2012 02/11/2013 documented as of this encounter (statuses as of 01/09/2022) [place] [id number] History of Past illness Narrative* Problem Noted Date Resolved Date 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 10/03/2012 Breast cancer 07/03/2012 02/11/2013 documented as of this encounter (statuses as of 03/28/2022) [place] [id number] History of Past illness Narrative* Problem Noted Date Resolved Date 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 10/03/2012 Breast cancer 07/03/2012 02/11/2013 documented as of this encounter (statuses as of 04/27/2022) [place] [id number] History of Past illness Narrative* Problem Noted Date Resolved Date 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 10/03/2012 Breast cancer 07/03/2012 02/11/2013 documented as of this encounter (statuses as of 06/15/2022) [place] [id number] History of Past illness Narrative* Problem Noted Date Resolved Date 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 10/03/2012 Breast cancer 07/03/2012 02/11/2013 documented as of this encounter (statuses as of 07/13/2022) [address]28-2013 History of Past illness Narrative* Problem Noted Date Resolved Date 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 10/03/2012 Breast cancer 07/03/2012 02/11/2013 documented as of this encounter (statuses as of 08/10/2022) [place] [id number] History of Past illness Narrative* Problem Noted Date Diagnosed Date Resolved Date 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 10/03/2012 Breast cancer 07/03/2012 02/11/2013 documented as of this encounter (statuses as of 11/22/2022) [place] [id number] History of Past illness Narrative* Problem Noted Date Diagnosed Date Resolved Date 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 10/03/2012 Breast cancer 07/03/2012 02/11/2013 documented as of this encounter (statuses as of 11/24/2022) [place] [id number] History of Past illness Narrative* Problem Noted Date Diagnosed Date Resolved Date 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 10/03/2012 Breast cancer 07/03/2012 02/11/2013 documented as of this encounter (statuses as of 08/06/2023) [facility] complaint+Reason for visit Narrative* Chief Complaint LABS/MANDEEP 1 Y FU OSTEO FALL MANAGER UTILIZATION 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 CUSTODIAL LABWORK CUSTODIAL LABWORK Reason for Visit Hypoparathyroidism a fter procedure Hypothyroidism [facility] Work Phone: chief complaint+Reason for visit Narrative* Chief Complaint LABS/MANDEEP 1 Y FU OSTEO FALL LAB WORK MANAGER UTILIZATION 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 CUSTODIAL LABWORK CUSTODIAL LABWORK Reason for Visit Hypoparathyroidism a fter procedure Hypothyroidism [facility] Work Phone: Chigw complaint+Reason for visit Narrative* Chief Complaint OSTEO FALL LAB WORK MANAGER UTILIZATION 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 CUSTODIAL LABWORK CUSTODIAL LABWORK CUSTODIAL LABWORK LAB WORK CUSTODIAL LABWORK CUSTODIAL LAB WORK [facility] Work Phone: Chijw complaint+Reason for visit Narrative* Chief Complaint FALL LAB WORK MANAGER UTILIZATION 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 CUSTODIAL LABWORK CUSTODIAL LABWORK CUSTODIAL LABWORK LAB WORK CUSTODIAL LABWORK LAB WORK CUSTODIAL LABWORK CUSTODIAL LAB WORK LABWORK [facility] Work Phone: Chief complaint+Reason for visit Narrative* Chief Complaint FALL LAB WORK MANAGER UTILIZATION 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 CUSTODIAL LABWORK CUSTODIAL LABWORK CUSTODIAL LABWORK LAB WORK CUSTODIAL LABWORK LAB WORK CUSTODIAL LABWORK CUSTODIAL LAB WORK CUSTODIAL LABWORK LABWORK CUSTODIAL LAB WORK [facility] Work Phone: Chief complaint+Reason for visit Narrative* Chief Complaint FALL LAB WORK MANAGER UTILIZATION 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 CUSTODIAL LABWORK CUSTODIAL LABWORK CUSTODIAL LABWORK LAB WORK CUSTODIAL LABWORK LAB WORK CUSTODIAL LABWORK CUSTODIAL LAB WORK CUSTODIAL LABWORK CUSTODIAL LABWORK LABWORK CUSTODIAL LAB WORK [facility] Work Phone: Chief complaint+Reason for visit Narrative* Chief Complaint FALL LAB WORK MANAGER UTILIZATION 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 CUSTODIAL LABWORK CUSTODIAL LABWORK CUSTODIAL LABWORK LAB WORK CUSTODIAL LABWORK LAB WORK CUSTODIAL LABWORK CUSTODIAL LAB WORK CUSTODIAL LABWORK CUSTODIAL LABWORK LABWORK CUSTODIAL LAB WORK CUSTODIAL LAB WORK [facility] Work Phone: Chief complaint+Reason for visit Narrative* Chief Complaint FALL LAB WORK MANAGER UTILIZATION 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 CUSTODIAL LABWORK CUSTODIAL LABWORK CUSTODIAL LABWORK LAB WORK CUSTODIAL LABWORK LAB WORK CUSTODIAL LABWORK CUSTODIAL LAB WORK CUSTODIAL LABWORK CUSTODIAL LABWORK LABWORK CUSTODIAL LAB WORK CUSTODIAL LAB WORK [facility] Work Phone: Chief complaint+Reason for visit Narrative* Chief Complaint FALL LAB WORK MANAGER UTILIZATION 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 CUSTODIAL LABWORK CUSTODIAL LABWORK CUSTODIAL LABWORK LAB WORK CUSTODIAL LABWORK LAB WORK CUSTODIAL LABWORK CUSTODIAL LAB WORK CUSTODIAL LABWORK CUSTODIAL LABWORK LABWORK CUSTODIAL LAB WORK LABWORK CUSTODIAL LAB WORK [facility] Work Phone: Chief complaint+Reason for visit Narrative* Chief Complaint LAB WORK MANAGER UTILIZATION 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 CUSTODIAL LABWORK CUSTODIAL LABWORK CUSTODIAL LABWORK LAB WORK CUSTODIAL LABWORK LAB WORK CUSTODIAL LABWORK CUSTODIAL LAB WORK CUSTODIAL LABWORK CUSTODIAL LABWORK LABWORK CUSTODIAL LAB WORK LABWORK CUSTODIAL LAB WORK FALL CUSTODIAL LABWORK CUSTODIAL LABWORK [facility] Work Phone: Chief complaint+Reason for visit Narrative* Chief Complaint LAB WORK MANAGER UTILIZATION 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 CUSTODIAL LABWORK CUSTODIAL LABWORK CUSTODIAL LABWORK LAB WORK CUSTODIAL LABWORK LAB WORK CUSTODIAL LABWORK CUSTODIAL LAB WORK CUSTODIAL LABWORK CUSTODIAL LABWORK LABWORK CUSTODIAL LAB WORK LABWORK CUSTODIAL LAB WORK FALL CUSTODIAL LABWORK CUSTODIAL LABWORK CUSTODIAL LABWORK CUSTODIAL LAB WORK [facility] Work Phone: Chief complaint+Reason for visit Narrative* Chief Complaint LAB WORK MANAGER UTILIZATION 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 CUSTODIAL LABWORK CUSTODIAL LABWORK CUSTODIAL LABWORK LAB WORK CUSTODIAL LABWORK LAB WORK CUSTODIAL LABWORK CUSTODIAL LAB WORK CUSTODIAL LABWORK CUSTODIAL LABWORK LABWORK CUSTODIAL LAB WORK LABWORK CUSTODIAL LAB WORK LABWORK FALL CUSTODIAL LABWORK CUSTODIAL LABWORK CUSTODIAL LABWORK CUSTODIAL LAB WORK [facility] Work Phone: Discharge summary Author James Lamar [facility] November 23, 2022 12:54pm Note Date/Time November 23, 2022 12: 44pm [facility] Medical Records Department [address] [place] [id number] Instructions for Home/Discharge Instructions 11/23/22 1241 MR#: [id number] Acct: [id number] Name: AIDEN FIELDS Rep #:[id number] : 1945 77 From: James Lamar DO PCP: Dr. Erica Richardson DO Status:ADM MAXIME Discharge Instructions Diet Discharge Diet: No restrictions Activity Discharge Activity: Return to Normal Activity Weight Bearing Status: Full weight bearing Follow Up Care Test Results: Test results from this visit will be discussed in further detail at your follow- up appointment, if applicable. Discharge Plan Admission Admit Date/Time: 11/22/22 18:02 Primary Reason for Your Visit: rhinovirus bronchitis Attending Provider: James Lamar Primary Care Provider: Erica Richardson Consulting Providers: Bandar Chanel Discharge Orders/Prescriptions Prescriptions: New albuterol sulfate [Proventil HFA] 90 mcg/actuation HFA aerosol inhaler 2 puff inhalation Q6H PRN (Reason: shortness of breath or wheezing) Qty: 8.5 0RF Continued valacyclovir 1 gram tablet 1,000 mg PO DAILY potassium chloride 20 mEq tablet,ER particles/crystals 40 meq PO DAILY dexamethasone sodium phosphate 0.1 % drops 1 drp ophthalmic (eye) DAILY Rx Instructions: RIGHT EYE hydrocodone-acetaminophen 10-325 mg tablet 1 tab PO Q6H cholecalciferol (vitamin D3) 25 mcg (1,000 unit) capsule 25 mcg PO DAILY magnesium oxide 500 mg tablet 1,000 mg PO DAILY memantine 5 mg tablet 5 mg PO BID nabumetone 750 mg tablet 750 mg PO BID escitalopram oxalate [Lexapro] 10 mg tablet 10 mg PO DAILY quetiapine 100 mg tablet 100 mg PO DAILY liothyronine 5 mcg tablet 5 mcg PO DAILY amlodipine 5 mg tablet 5 mg PO DAILY meclizine 25 MG tablet 25 mg PO DAILY calcitriol 0.5 mcg capsule 0.5 mcg PO BID Rx Instructions: please discontinue any rx for calcitriol by an other doctors levothyroxine 125 mcg tablet 125 mcg PO DAILY clonazepam 1 mg tablet 1 mg PO BID Qty: 6 0RF pregabalin 75 mg capsule 75 mg PO TID Qty: 9 0RF Referrals / Follow Up: Erica Richardson DO [Primary Care Provider] - Within 2 Weeks Disposition Disposition (needs filled in before D/C Order can be placed): Home, Self Care 11/23/22 1254<Electronically signed by aJmes Lamar DO>James Lamar DO CC: Dr. Erica Richardson DO; Dr. Bandar Chanel MD ~ Signed [facility] Work Phone: Evaluation note* Diagnosis Otalgia, right- Primary Vertigo Dizziness and giddiness URI, acute Acute upper respiratory infections of unspecified site documented in this encounter [facility] note* Diagnosis Malignant neoplasm of left breast in female, estrogen receptor positive, unspecified site of breast (HCC)- Primary documented in this encounter [facility] note* Diagnosis Onset Date Resolution Status Hypoparathyroidism after procedure acute Hypothyroidism acute [facility] Work Phone: Evaluation note* Diagnosis Malignant neoplasm of left breast in female, estrogen receptor positive, unspecified site of breast (HCC)- Primary documented in this encounter [facility] note* Diagnosis SDH (subdural hematoma) (HCC)- Primary Subdural hemorrhage documented in this encounter [facility] note* Diagnosis SDH (subdural hematoma) (HCC) Subdural hemorrhage documented in this encounter [facility] note* Diagnosis Closed fracture of multiple ribs with flail chest with routine healing, subsequent encounter- Primary documented in this encounter [facility] note* Diagnosis Closed fracture of multiple ribs of left side, initial encounter Lung laceration, subsequent encounter documented in this encounter [facility] noteNo assessment information availableWPro[facility] Work Phone: Evaluation note* Diagnosis Malignant neoplasm of left breast in female, estrogen receptor positive, unspecified site of breast (HCC)- Primary documented in this encounter [facility] note* Diagnosis SDH (subdural hematoma) (HCC) Subdural hemorrhage Cerebral hemorrhage (HCC) Intracerebral hemorrhage documented in this encounter [facility] note* Diagnosis SDH (subdural hematoma)- Primary Subdural hemorrhage Cerebral hemorrhage (HCC) Intracerebral hemorrhage documented in this encounter [facility] note* Diagnosis Malignant neoplasm of left breast in female, estrogen receptor positive, unspecified site of breast (HCC)- Primary documented in this encounter [facility] note* Diagnosis Malignant neoplasm of left breast in female, estrogen receptor positive, unspecified site of breast (HCC)- Primary documented in this encounter [facility] note* Diagnosis Onset Date Resolution Status Cough acute Hypoxia acute [facility] Work Phone: Evaluation note* Diagnosis Acute cough- Primary SOB (shortness of breath) Shortness of breath Suspected COVID-19 virus infection documented in this encounter [facility] note* Diagnosis Onset Date Resolution Status Cough acute Dyspnea on exertion acute Hypoxia acute [facility] Work Phone: Evaluation note* Diagnosis Onset Date Resolution Status Acute hypotension acute Acute hypoxic respiratory failure acute Creatinine elevation acute Encephalopathy due to infection acute Ketosis acute Pyuria acute SIRS (systemic inflammatory response syndrome) acute [facility] Work Phone: Evaluation note* Diagnosis History of breast cancer- Primary Personal history of malignant neoplasm of breast documented in this encounter [facility] note* Diagnosis Onset Date Resolution Status Acute hypotension resolved Creatinine elevation resolve d Encephalopathy due to infection resolved Ketosis resolved Pyuria resolved SIRS (systemic inflammatory response syndrome) resolved [facility] Work Phone: Evaluation note* Diagnosis History of breast cancer- Primary Personal history of malignant neoplasm of breast [facility] Diagnosis Pre-operative examination- Primary Preoperative examination, unspecified Closed displaced oblique fracture of shaft of 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 Squamous cell carcinoma of skin of lower extremity, unspecified laterality Malignant melanoma of right upper arm (HCC) 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) Secondary and unspecified malignant neoplasm of lymph nodes of axilla and upper limb Essential hypertension Unspecified essential hypertension Anxiety state Anxiety state, unspecified Postsurgical hypothyroidism Gastroesophageal reflux disease, esophagitis presence not specified Constipation, unspecified constipation type Tobacco use Tobacco use disorder 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 Closed fracture of multiple ribs with flail chest with routine healing, subsequent encounter Acute cough [facility]* Diagnosis Pre-operative examination- Primary Preoperative examination, unspecified Closed displaced oblique fracture of shaft of 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 Squamous cell carcinoma of skin of lower extremity, unspecified laterality Malignant melanoma of right upper arm (HCC) 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) Secondary and unspecified malignant neoplasm of lymph nodes of axilla and upper limb Essential hypertension Unspecified essential hypertension Anxiety state Anxiety state, unspecified Postsurgical hypothyroidism Gastroesophageal reflux disease, esophagitis presence not specified Constipation, unspecified constipation type Tobacco use Tobacco use disorder 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 Erica Richardson, DO Status:REG ER Location: ED HPI - General General Date of Admission: 05/19/23 Date of Service: 05/19/23 Chief Complaint: Encephalopathy. HPI Narrative The patient is a 74 y/o F w/ PMHx: Dementia unclear type with unclear behavioraldisturbance history, Chronic anemia, Hx Breast CA s/p mastectomy, HTN, HLD, Rheumatoid arthritis, Hypothyroidism, Anxiety and Depression, EtOH abuse/Polysubstance dependency including BZD/opiates per review of prior records who presents to the [facility] ED on 05/19/23 with significant encephalopathy with limited responses to staff initially with noted emesis on route with patient initially significantly tachypneic, tachycardic and febrile with initial evaluation per ED physician with significant rales bilaterally however patient quickly improved and became more alert with denied recent history of fever, chills, upper respiratory type infections, nausea, vomiting or diarrhea or any urinary type symptoms. Patient denies any recent ill contacts. Patient caregiver present notes this is her baseline currently she appears much better. Workup in the ED included initially T101, heart rate 113, BP 129/62, respiratoryrate 23, initially 85% on room air with most recent vital signs improved with T98.2, heart rate 95, BP 99/55, respiratory rate 20, 95% on 3 L nasal cannula, CBC with WBC 15.2, hemoglobin 1.9, MCV 97.9, platelet 199 with left shift, CMP with chloride 109, BUN/creatinine 23/1.22, glucose 134, lactic acid 1.7, hepaticprofile with T. bili 1.40 otherwise unremarkable, urinalysis with noted cloudy urine, protein 100, ketone 5, occult blood 50, positive nitrite, leukocyte esterase 500, urine RBCs 10-25, urine WBCs greater than 100, UDS pending upon evaluation of patient, acetaminophen level, urine opiate screen, urine methadonescreen, ethyl alcohol levels pending upon evaluation, chest x-ray with no acute cardiopulmonary findings, urine culture pending per ED, blood culture x 2 pending per ED, rapid SARS COVID/influenza/RSV PCR pending upon requested evaluation of patient, EKG with sinus tachycardia. In the ED patient ministered1 L normal saline as well as IV Rocephin and azithromycin 500 mg IV x 1. [facility] Medical History (Updated 05/19/23 @ 01:[address] 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 procedure Hypothyroidism Melanoma Multiple rib fractures Opioid dependence Rheumatoid arthritis Skin cancer Subdural hematoma Tobacco abuse Vitamin D deficiency Home Medications potassium chloride 20 mEq tablet,extended release(part/cryst) 40 meq PO DAILY SUPPLEMENT 08/01/20 [History Last Taken 11/22/22] valacyclovir 1 gram tablet 1,000 mg PO DAILY SHINGLES 08/01/20 [History Last Taken 11/22/22] dexamethasone sodium phosphate 0.1 % eye drops 1 drp ophthalmic (eye) DAILY glaucoma 03/09/21 [History Last Taken 11/22/22] hydrocodone 10 mg-acetaminophen 325 mg tablet 1 tab PO Q6H PAIN 06/11/21 [History Last Taken 11/22/22] clonazepam 1 mg tablet 1 mg PO BID #6 tabs 03/03/22 [Rx Last Taken 11/22/22] pregabalin 75 mg capsule 75 mg PO TID PAIN #9 caps 03/03/22 [Rx Last Taken 11/22/22] amlodipine 5 mg tablet 5 mg PO DAILY 11/22/22 [History Last Taken 11/22/22] calcitriol 0.5 mcg capsule 0.5 mcg PO DAILY 11/22/22 [History Last Taken 11/22/22] cholecalciferol (vitamin D3) 25 mcg (1,000 unit) capsule 25 mcg PO DAILY SUPPLEMENT 11/22/22 [History Last Taken 11/22/22] escitalopram oxalate 10 mg tablet (Lexapro) 10 mg PO DAILY ANXIETY 11/22/22 [History Last Taken 11/22/22] magnesium oxide 500 mg PO DAILY SUPPLEMENT 11/22/22 [History Last Taken 11/22/22] meclizine 25 mg tablet 25 mg PO TID Dizziness 11/22/22 [History Last Taken 11/22/22] memantine 5 mg tablet 5 mg PO BID 11/22/22 [History Last Taken 11/22/22] nabumetone 750 mg tablet 750 mg PO BID 11/22/22 [History Last Taken 11/22/22] quetiapine 100 mg tablet 25 mg PO DAILY DEPRESSION 11/22/22 [History Last Taken 11/22/22] albuterol sulfate 90 mcg/actuation aerosol inhaler (Proventil HFA) 2 puff inhalation Q6H PRN shortness of breath or wheezing #8.5 grams 11/23/22 [Rx Last Taken Unknown] levothyroxine 125 mcg tablet 125 mcg PO DAILY #90 tabs 02/19/23 [Rx Last Taken Unknown] acetaminophen 500 mg capsule 500 mg PO BID 05/19/23 [History Last Taken Unknown] famotidine 20 mg tablet (Pepcid) 20 mg PO QHS 05/19/23 [History Last Taken Unknown] polyethylene glycol 3350 17 gram/dose oral powder (ClearLax) 17 g PO DAILY 05/19/23 [History Last Taken Unknown] pyridoxine (vitamin B6) 100 mg tablet 100 mg PO DAILY 05/19/23 [History Last Taken Unknown] Allergy/AdvReac Type Severity Reaction Status Date / Time bacitracin Allergy Unknown Unknown Verified 05/18/23 23:29 [From Neosporin ([id number])] neomycin Allergy Unknown Unknown Verified 05/18/23 23:29 [From Neosporin ([id number])] polymyxin B Allergy Unknown Unknown Verified 05/18/23 23:29 [From Neosporin ([id number])] Antihistamines - Alkylamine Allergy PT UNSURE Verified 05/18/23 23:29 OF REACTION diphenhydramine Allergy PT UNSURE Verified 05/18/23 23:29 [From Benadryl] OF REACTION Family History Unknown Thyroid disorder Cancer High cholesterol Arthritis Mother Cancer Diabetes Father , Father at the age of 50 from successful suicide attempt. Suicidal intent Other Alcohol abuse Anxiety Depression Heart disease Hypertension Mental disorder Parkinson disease Psychiatric care Surgical History H/O mastectomy H/O thyroidectomy Status post glaucoma surgery Social History (Updated 05/19/23 @ 01:[address] Aggie Bolton MD) household members: none Smoking Status: Former smoker second hand exposure: Yes alcohol intake: current alcohol intake frequency: 3 or more drinks per day substance use type: does not use ROS Review of Systems ROS Unobtainable: due to encephalopathy Vital Signs Vital Signs Vital Signs: 05/18/23 23:28 05/18/23 23:32 05/18/23 23:52 Temperature 101 F H Temperature Source Temporal Pulse Rate 113 H Respiratory Rate 23 H Blood Pressure 129/62 H Blood Pressure Mean 84 Pulse Ox 85 94 94 Oxygen Delivery Method Room Air Nasal Cannula Nasal Cannula Oxygen Flow Rate (L/min) 3 3 01/28/24 00:28 05/19/23 00:32 05/19/23 01:17 Temperature 99.6 F H 98.2 F Temperature Source Oral Oral Pulse Rate 103 H 100 95 Respiratory Rate 22 H 24 H 20 H Blood Pressure 115/60 115/60 99/55 L Blood Pressure Mean 78 78 69 Pulse Ox 95 95 95 Oxygen Delivery Method Nasal Cannula Nasal Cannula Nasal Cannula Oxygen Flow Rate (L/min) 3 3 3 Weight Weight: 160 lb 14.999 oz Body Mass Index (BMI) 25.9 Physical Exam Narrative Physical Examination: General: Arousing, notably improved since initial ED arrival, now alert to self and recent events, remains cooperative, seated upright in ED bed, no acute distress, vital signs improving. Skin: normal color, turgor, no icterus, cyanosis except occasional staged ecchymoses. HEENT: AT/NC, EOMI, PERRLA, dry MM, no carotid bruits or JVD noted, chronic right head tilt. Lungs: Diminished breath sounds, greater bases, moderate decrease BL bases, previous significant rales bilaterally reported per ED physician upon arrival, currently improved, no obvious rhonchi or wheezing. Heart: Mildly tachycardic with regular rhythm; no gallop, rub audible. Abdomen: soft, overweight, NTTP, ND, distant normal BS, no appreciated HSM. Extremities: no cyanosis, no clubbing, mild bilateral pedal to distal vega edema. Neurological: patient improving, currently awakens and more alert, oriented as noted; cognitive function improving, suspect nearing baseline; pupils equally reactive to light and accomodation; cranial nerves grossly normal, moving all 4 extremities, no focal deficits, strength moderately to severely globally decreased secondary to acute presentation. Psychiatric: affect appears fatigued otherwise normal, no acute evidence of depressive or anxiety feelings but does have underlying history. Results Lab / Micro Data 05/18/23 23:50 05/18/23 23:50 Labs: Laboratory Results - last 24 hr 05/18/23 23:50: WBC 15.2 H, RBC 3.75 L, Hgb 11.9 L, Hct 36.7 L, MCV 97.9, MCH 31.7, MCHC 32.4, RDW Std Deviation 54.4 H, RDW Coeff of Felix 15.1 H, Plt Count 199, MPV 12.5 H, Immature Gran % (Auto) 0.700, Neut % (Auto) 89.8 H, Lymph % (Auto) 6.3 L, Gem % (Auto) 2.4, Eos % (Auto) 0.3, Baso % (Auto) 0.5, Absolute Neuts (auto) 13.7 H, Absolute Lymphs (auto) 0.96, Nucleated RBC % 0, Sodium 139,Potassium 3.8, Chloride 109 H, Carbon Dioxide 24.0, Anion Gap 6, BUN 23 H, Creatinine 1.22 H, Estim Creat Clear Calc 40.12, Est GFR (MDRD) Af Amer 55 L, Est GFR (MDRD) Non-Af 46 L, BUN/Creatinine Ratio 18.9, Glucose 134 H, Lactic Acid 1.7, Calcium 8.6, Total Bilirubin 1.40 H, AST 22, ALT 17, Alkaline Phosphatase 116, Total Protein 7.5, Albumin 3.2, Globulin 4.3 H, Albumin/Globulin Ratio 0.7 L, Urine Color Yellow, Urine Clarity Cloudy, Urine pH6.0, Ur Specific Candor 1.010, Urine Protein 100 H, Urine Glucose (UA) Normal, Urine Ketones 5 H, Urine Occult Blood 50 H, Urine Nitrite Positive H, Urine Bilirubin Negative, Urine Urobilinogen Normal, Ur Leukocyte Esterase 500 H, Urine RBC 10-25 SEEN, Urine WBC >100 SEEN, Ur Squamous Epith Cells 0 SEEN, UrineBacteria 0 SEEN, Urine Mucus 0 SEEN, Urine Opiates Screen POSITIVE H, Urine Methadone Screen NEGATIVE, Ur Barbiturates Screen NEGATIVE, Ur Phencyclidine Scrn NEGATIVE, Ur Amphetamines Screen NEGATIVE, MDMA (Ecstasy) Screen NEGATIVE, U Benzodiazepines Scrn NEGATIVE, Urine Cocaine Screen NEGATIVE, U Cannabinoids Screen NEGATIVE, Ur Drug Screen Comment 05/19/23 00:34: Ethyl Alcohol < 3.0 Rhythm Strip Rhythm Strip: Sinus Tach Rate: 119 Imaging Radiology Impression Chest X-Ray 05/18/23 23:55 IMPRESSION: No evidence of acute cardiopulmonary disease. Electronically Signed: Eliel Christensen DO at 0:46 EST , Assessment & Plan Assessment/Plan (1) Encephalopathy due to infection: PLAN: Plan The patient is a 74 y/o F w/ PMHx: Dementia unclear type with unclear behavioraldisturbance history, Chronic anemia, Hx Breast CA s/p mastectomy, HTN, HLD, Rheumatoid arthritis, Hypothyroidism, Anxiety and Depression, EtOH abuse/Polysubstance dependency including BZD/opiates per review of prior recordswho presents to the [facility] ED on 05/19/23 with significant encephalopathy with limited responses to staff initially with noted emesis on route with patient initially significantly tachypneic, tachycardic and febrile with initial evaluation per ED physician with significant rales bilaterally however patient quickly improved and became more alert with denied recent history of fever, chills, upper respiratory type infections, nausea, vomiting or diarrhea or any urinary type symptoms. #1. Acute transient encephalopathy suspected multifactorial, secondary to acutehypoxia suspected secondary to aspiration event in addition to acute pyuria, complicated urinary tract infection: Will admit to MS given stable VS, maintain on oxygen with wean as tolerated to room air, continue ATC budesonide, PRN albuterol, maintain on IV Zosyn given aspiration concerns and UTI concerns, willplan repeat CXR in AM, HOB, IS parameters, UCx pending, PT/OT/CM consulted for discharge planning. #2. Acute kidney injury: Secondary to acute presentation as noted. Admission BUN/Cr 23/1.22, prior baseline creatinine noted to be primarily 0.5. Will judiciously hydrate, hold nephrotoxic medications and repeat chemistry in AM. Ifno improvement would plan FeNa and renal ultrasound assessment. #3. Hyperglycemia: No diabetic history per review of chart, admission glucose 134, possibly stress response, continue to trend and if further elevated low threshold to obtain hemoglobin A1c. #4. EtOH Abuse: Noted during prior admissions and patient has had significantlyelevated alcohol levels previously, frequently denies but family has mentioned she is an alcoholic. Ethyl alcohol level pending as well as UDS upon presentation. Will maintain on CIWA protocol, MVI, thiamine and folic acid. Case management consulted. #5. Polysubstance abuse: Patient with previous admissions with positive opiate and also on a significant amount of benzodiazepines with also alcohol abuse, urine drug screen pending upon evaluation of patient. #6. Dementia, unclear type with unclear behavioral disturbance history: Complicates presentation, will continue patient home memantine home regimen, maintain on fall and aspiration precautions, therapies as well as case management consulted as noted. #7. Anxiety and depression: We will continue patient home BuSpar, clonazepam regimen to avoid any withdrawal however if any concerns for sedation low threshold to hold, continue patient home Seroquel low-dose regimen concurrently. #8. Chronic normocytic anemia: Admission hemoglobin 11.9, MCV 97.9, baseline hemoglobin similar, continue to trend. #9. Hypothyroidism: Will continue patient on levothyroxine regimen #10. GERD: We will continue patient home famotidine regimen. #11. Hypertension: BP low upon ED initial presentation and evaluation, will temporally hold amlodipine, resume once appropriate. #12. Hyperlipidemia: Not on statin per current regimen listed, defer to outpatient. #13. Questionable history of rheumatoid arthritis: Not on regimen, encourage continued outpatient follow-up with rheumatology as needed. #14. DVT prophylaxis: Heparin. Charges/Coding Visit Charges Inpatient E&M: 06345 Init Hosp L3 05/19/23 0145 <Electronically signed by Aggie Bolton MD> Cosigner Signature (if applicable): CC: Dr. Aggie Bolton MD; Dr. Erica Richardson, DO~ Signed [facility] Work Phone: [facility] Dis[facility] Work Phone: Hospital Discharge instructions Additional Instructions Follow-up with your lime burner as scheduled.[facility] Work Phone: Hospital Discharge instructions Additional Instructions Thank you for trusting us with your care today! Please take Tylenol (2 pills, 650 mg), ibuprofen (2 pills, 400 mg) every 6 hours as needed for pain and fever control. Please return to the emergency department if your symptoms change or worsen. Please follow with your primary care physician for further outpatient evaluation and management.[facility] Work Phone: Reason for referral (narrative)* Diagnostic Procedure Only (Urgent) - Closed Specialty Diagnoses / Procedures Referred By Contac t Referred To Contact XR IMAGING Diagnoses Injury of left upper arm, subsequent encounter Procedures XR HUMERUS 2V AP/LAT LEFT X-RAY HUMERUS Earline Rebolledo, RIO.CEMETERY LABORER [address] [place] [address] [place] [address] Referral ID Status Reason Start Date Expiration Date V isits Requested Visits Authorized Closed Auto-Generate d Referral 03/17/2021 04/16/2022 1 1 [facility]No reason for referral information availableWProMedica [facility] Work Phone: Reason for visit Narrative* Diagnostic Procedure Only (Urgent) - Closed Specialty Diagnoses / Procedures Referred By Contac t Referred To Contact XR IMAGING Diagnoses Injury of left upper arm, subsequent encounter Procedures XR HUMERUS 2V AP/LAT LEFT X-RAY HUMERUS Earline Rebolledo APRN.CEMETERY LABORER [address] [place] [address] [place] [address] Referral ID Status Reason Start Date Expiration Date V isits Requested Visits Authorized [id number] Closed Auto-Generate d Referral 03/17/2021 04/16/2022 1 1 [facility] Summary Purpose Family History No Family History Records Found Relationship Condition Age at Onset Recorded Date/T aaliyah Not Specified Psychiatric care Unknown Alcohol abuse Unknown Anxiety Unknown Depression Unknown Cardiac disease Unknown Mental disorder Unknown Hypertension Unknown Parkinson's disease Unknown Not Specified Disorder of thyroid Unknown Malignant neoplasm Unknown High blood cholesterol Unknown Arthritis Unknown mother Malignant neoplasm Unknown Diabetes mellitus Unknown father Suicidal intent Unknown Relationship Condition Age at Onset Recorded Date/T aaliyah Not Specified Psychiatric care Unknown Alcohol abuse Unknown Anxiety Unknown Depression Unknown Cardiac disease Unknown Mental disorder Unknown Hypertension Unknown Parkinson's disease Unknown unrelated friend Disorder of thyroid Unknown Malignant neoplasm Unknown High blood cholesterol Unknown Arthritis Unknown mother Malignant neoplasm Unknown Diabetes mellitus Unknown father Suicidal intent Unknown Advance Directives No Advanced Directives Records FoundLatest Code Status on File Code Status Date Activated Date Inactivated Comments Full Code 04/16/2020 11:37 AM Documents on File Type Date Recorded Patient Conveyor Feeder Expl anation Advance Directive(s) 06/13/2018 11:17 AM Advance Directive Response Recorded Date/ Time Name of Medical Power of Soa Integration Architect . May 21, 2021 3:48pm Living Will Yes June 11 12:06pm Power of Soa Integration Architect Yes June 11, 2021 12:06pm Advance Directive Response Recorded Date/ Time Name of Medical Power of Soa Integration Architect Reed Marx June 11, 2021 12:06pm Living Will Yes October 06, 2021 9:38pm Power of Soa Integration Architect No October 06 9:38pm Documents on File Type Date Recorded Patient Conveyor Feeder Expl anation Advance Directive(s) 10/07/2021 4:42 AM Advance Directive(s) 06/13/2018 11:17 AM Documents on File Type Date Recorded Patient Conveyor Feeder Expl anation Advance Directive(s) 10/07/2021 4:42 AM Advance Directive(s) 06/13/2018 11:17 AM Advance Directive Response Recorded Date/ Time Living Will Yes October 06, 2021 9:38pm Power of Soa Integration Architect No October 06 9:38pm Advance Directive Response Recorded Date/ Time Name of Medical Power of Soa Integration Architect REED AZAR January 10, 2022 11:50am Living Will Yes January 10, 2022 11:50am Power of Soa Integration Architect Yes December 11:50am Advance Directive Response Recorded Date/ Time Living Will Yes March 09, 022 8:51am Power of Soa Integration Architect Yes March 09, 2022 8:51am Name of Medical Power of Soa Integration Architect REED MA MYNORMIRACLE January 10, 2022 10:50am Advance Directive Response Recorded Date/ Time Living Will Yes March 09 8:51am Power of Soa Integration Architect Yes March 09, 2022 8:51am Advance Directive Response Recorded Date/ Time Name of Medical Power of Soa Integration Architect karol prieto July 02, 2022 5:04pm Living Will Yes July 02, 2022 5:04pm Power of Soa Integration Architect Yes July 02 5:04pm Advance Directive Response Recorded Date/ Time Name of Medical Power of Soa Integration Architect Reed Marx November 22, 2022 12:50pm Living Will Yes November 22, 2022 12:50pm Power of Soa Integration Architect Yes November 22 12:50pm Advance Directive Response Recorded Date/ Time Name of Medical Power of Soa Integration Architect Reed Marx November 22, 2022 6:25pm Living Will Yes November 22, 2022 6:25pm Power of Soa Integration Architect Yes November 22 6:25pm Advance Directive Response Recorded Date/ Time Living Will Yes November 22, 2022 5:25pm Power of Soa Integration Architect Yes November 22 5:25pm Advance Directive Response Recorded Date/ Time Name of Medical Power of Soa Integration Architect Reed Marx May 19, 2023 3:16am Living Will Yes May 19 3:16am Power of Soa Integration Architect Yes May 19, 2023 3:16am Advance Directive Response Recorded Date/ Time Name of Medical Power of Soa Integration Architect Reed Marx May 19, 2023 4:16am Living Will No August 20, 2023 12:29pm Power of Soa Integration Architect No August 19 12:29pm Advance Directive Response Recorded Date/ Time Living Will No July 04, 2024 1:18pm Power of Soa Integration Architect No July 04 1:18pm Advance Directive Response Recorded Date/ Time Living Will No July 04, 2024 1:18pm Do you have a Healthcare Power of Soa Integration Architect? No July 04, 2024 1:18pm Reason for Referral Status Reason Specialty Diagnoses / Procedures Referre d By Contact Referred To Contact Open Radiology Diagnoses Traumatic subdural hematoma with loss of consciousness of 30 minutes or less, subsequent encounter Procedures CT Head WO Contrast Nicho Thompson MD [address] [place] [address] Specialty Diagnoses / Procedures Referred By Contac t Referred To Contact CT IMAGING Diagnoses SDH (subdural hematoma) (HCC) Procedures CT BRAIN WO IVCON CT HEAD/BRAIN W/O CONTRAST MATERIAL Yolie Lowe PA-C [address] [place] [address] Ct Imaging Referral ID Status Reason Start Date Expiration Date Visits Requested Visits Authorized [id number] Pending Review Auto-Generat ed Referral 10/25/2021 11/10/2022 1 1 Referral ID Status Reason Start Date Expiration Date V isits Requested Visits Authorized [id number] Closed Auto-Generate d Referral 10/25/2021 11/10/2022 1 1 Specialty Diagnoses / Procedures Referred By Contac t Referred To Contact MR IMAGING Diagnoses SDH (subdural hematoma) (HCC) Cerebral hemorrhage (HCC) Procedures MRI BRAIN WO/W IVCON MRI BRAIN BRAIN STEM W/O W/CONTRAST MATERIAL Sherice Rosenberg APRN.CEMETERY LABORER [address] [facility] [place] [address] Mr Imaging Referral ID Status Reason Start Date Expiration Date V isits Requested Visits Authorized [id number] Closed Auto-Generate d Referral 11/03/2021 12/03/2022 1 1 Discharge Instructions * Instructions* Nicho Thompson MD - 04/17/2020 Call the neurosurgeon to make an appointment and schedule repeat CT scan documented in this encounter History of Present Illness * Jaspreet Nova MD - 04/17/2020 10:46 AM EST Remains alert F/U CT shows sl improved R temp small SDH without mass effect SDH over L tentorium without mass effect What's being read as a L frontal SDH is probably an old membrane from previous SDH's Will sign off at this time. Rec'd f/u [facility] clinic appt in about [address] of brain just before appt * Nicho Thompson MD - 04/17/2020 9:44 AM EST Family Communication Number Called: [phone] Name of Designated Family Conveyor Feeder: Reed Fields Relationship to Patient: daughter Phone Call Outcome: I spoke with the individual listed above. Family Conveyor Feeder Updated on the Following: CT scan and plan for placement in a facility. Discussed that patient wants to leave and has capacity but our recommendation is to stay. Daughter statedshe understood and would try to convince her to stay. * Yara Fletcher OT - 04/17/2020 9:11 AM EST Occupational Therapy Occupational Therapy Initial Assessment Date: 04/17/2020 Patient Name: Aiden Fields : 1945 Date of Service: 04/17/2020 Discharge Recommendations: (Facility-based therapy or home with 24/7 supervision and HH OT/PT) Assessment Performance deficits / Impairments: Decreased functional mobility ;Decreased safe awareness;Decreased balance;Decreased coordination;Decreased ADL status;Decreased endurance;Decreased high-level IADLs;Decreased fine motor control;Decreased vision/visual deficit;Decreased posture Assessment: Pt admitted following fall at home with LOC resulting in SDH, presents with the above stated deficits. Pt demonstrates poor insight and safety awarenss, reports multiple falls at home. Ptrequires supervision to CGA for all mobility and ADL tasks this date. Pt does not have 24/7 supervision/assist at home and is at risk for falls without assist. Recommend discharge to facility- based therapy to address impairments for increased safety before returning home. Prognosis: Good Decision Making: Low Complexity OT Education: OT Role;Plan of Care REQUIRES OT FOLLOW UP: Yes Activity Tolerance Activity Tolerance: Patient limited by fatigue Activity Tolerance: Pt reports fatigue after little mobility. Safety Devices Safety Devices in place: Yes Type of devices: All fall risk precautions in place;Gait belt;Bed alarm in place;Left in bed;Nurse notified;Call light within reach Patient Diagnosis(es): There were no encounter diagnoses. has a past medical history of Anxiety, Arthritis, Cancer (HCC), Depression, and Subdural hematoma caused by concussion (HCC). has a past surgical history that includes Breast surgery (Left, 2011). Restrictions Restrictions/Precautions Restrictions/Precautions: Fall Risk, Seizure Required Braces or Orthoses?: No Position Activity Restriction Other position/activity restrictions: Up with assist and ambulate Subjective General Chart Reviewed: Yes, Orders, Progress Notes, History and Physical, Imaging, Labs Patient assessed for rehabilitation services?: Yes Family / Caregiver Present: No Diagnosis: Traumatic subdural hematoma with loss of consciousness Subjective Subjective: Pt lying supine in bed upon OT arrival. Agreeable to eval. Patient Currently in Pain: Yes Pain Assessment Pain Assessment: 0-10 Pain Level: 9 Pain Type: Acute pain Pain Location: Eye Pain Orientation: Right Pain Descriptors: Discomfort Pain Frequency: Intermittent Pre Treatment Pain Screening Intervention List: Patient able to continue with treatment;Nurse/Physician notified Comments / Details: Pt c/o 9/10 pain in R eye, RN notified and states pt had just reported 0/10 pain to her moments before OT arrival. Social/Functional History Social/Functional History Lives With: Alone Type of Home: House Home Layout: Two level Home Access: Stairs to enter with rails(9 steps with right handrail and cane use.) Entrance Stairs - Number of Steps: 2 FREDRICK Bathroom Shower/Tub: (States sponge baths) Bathroom Toilet: Standard Bathroom Accessibility: Accessible Home Equipment: Cane Receives Help From: (Reports having aide helping with cleaning and occasional grocery shopping) ADL Assistance: Independent Homemaking Assistance: Needs assistance Homemaking Responsibilities: Yes Ambulation Assistance: Independent Transfer Assistance: Independent Active Housekeeper Caregiver: Yes(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 Pt hasa pet dog. Pt is a questionable historian and inconsistent with information regarding how much assist is available at home. Objective Orientation Overall Orientation Status: Within Functional Limits(A&O x4) Observation/Palpation Observation: right eye laceration, right eye swollen (able to track with right eye and see fingers on peripheral vision) Balance Sitting Balance: Modified independent Standing Balance: Contact guard assistance Functional Mobility Functional - Mobility Device: Cane Activity: Other Assist Level: Contact guard assistance Functional Mobility Comments: Pt demonstrates functional mobility within in room, through hallway, and on stairs using cane with CGA. Pt c/o fatigue with little mobility. Toilet Transfers Toilet - Technique: Stand step Equipment Used: Grab bars Toilet Transfer: Contact guard assistance Toilet Transfers Comments: CGA for transfer to standard toilet. Verbal cues to control descent and reach for grab bars for increased safety. ADL LE Dressing: Stand by assistance(Pt manages bilateral socks while seated, reaches forward requiringSBA.) Toileting: Contact guard assistance(CGA to manage pants over hips in standing.) Tone RUE RUE Tone: Normotonic Tone LUE LUE Tone: Normotonic Coordination Movements Are Fluid And Coordinated: No Coordination and Movement description: Decreased speed Quality of Movement Other Comment: Pt able to perform bilateral finger to thumb opposition with increased time. Requires slightly increased time for all fine motor tasks. Bed mobility Supine to Sit: Supervision Sit to Supine: Supervision Scooting: Supervision Comment: Pt performs all bed mobility at the supervision level, HOB elevated. Increased time/effortto scoot up toward HOB once returend to supine. Transfers Sit to stand: Contact guard assistance Stand to sit: Contact guard assistance Transfer Comments: CGA for sit <> stand from EOB without AD, noted flexed trunk and pt reaching out for EOB to maintain standing balance. Vision - Basic Assessment Prior Vision: Wears glasses all the time Patient Visual Report: Eye fatigue/eye pain/headache(Pt with laceration above R eye.) Cognition Overall Cognitive Status: Exceptions(Simultaneous filing. User may not have seen previous data.) Arousal/Alertness: Appropriate responses to stimuli Safety Judgement: Decreased awareness of need for assistance;Decreased awareness of need for safety Insights: Decreased awareness of deficits Cognition Comment: Confusion on prior level of function, appropriately follows commands Sensation Overall Sensation Status: (Denies N/Ting on BLE) LUE AROM (degrees) LUE AROM : WFL Left Hand AROM (degrees) Left Hand AROM: WFL RUE AROM (degrees) RUE AROM : WFL Right Hand AROM (degrees) Right Hand AROM: WFL LUE Strength LUE Strength Comment: Not formally assessed, grossly WFL for basic ADL tasks RUE Strength RUE Strength Comment: Not formally assessed, grossly WFL for basic ADL tasks Plan Plan Times per week: 3-5 Current Treatment Recommendations: Strengthening, Safety Education & Training, Balance Training, Patient/Caregiver Education & Training, Self-Care / ADL, Functional Mobility Training, Endurance Training, Home Management Training OutComes Score AM-PAC Daily Activity Inpatient How much help for putting on and taking off regular lower body clothing?: A Little How much help for Bathing?: A Little How much help for Toileting?: A Little How much help for putting on and taking off regular upper body clothing?: None How much help for taking care of personal grooming?: A Little How much help for eating meals?: None [facility] Inpatient Daily Activity Raw Score: 20 AM-[facility] Inpatient ADL T-Scale Score : 42.03 ADL Inpatient CMS 0-100% Score: 38.32 ADL Inpatient CMS G-Code Modifier : CJ AM-PAC Score AM-PAC Inpatient Daily Activity Raw Score: 20 (04/17/20911) AM-PAC Inpatient ADL T-Scale Score : 42.03 (04/17/20911) ADL Inpatient CMS 0-100% Score: 38.32 (04/17/20911) ADL Inpatient CMS G-Code Modifier : CJ (04/17/20911) Goals Short term goals Time Frame for Short term goals: 2 weeks Short term goal 1: Functional mobility using cane with modified independence, no cues for safety Short term goal 2: LE dressing (pants) with mod I Short term goal 3: Home management task with mod I, no cues for safety Patient Goals Patient goals : To go home Therapy Time Individual Concurrent Group Co-treatment Time In 0806 Time Out 0826 Minutes 20 Variance: 10(PT Eval) Goals and/or treatment plan was established in collaboration with patient/family/other representatives. Patient's Occupational Therapy Plan of Care supervision is transferred to [facility] Occupational Therapist. This provider wore an N95, face shield, and gloves for the duration of the session with this pt. Yara Fletcher OTR/L * Parvez Bolden, PT - 04/17/2020 9:05 AM EST Physical Therapy Facility/Department: [facility] ICU T2 Initial Assessment NAME: Aiden Fields : 1945 Date of Service: 04/17/2020 Discharge Recommendations: (facility based therapy) Assessment Body structures, Functions, Activity limitations: Decreased functional mobility ;Decreased strength;Decreased balance;Decreased safe awareness;Decreased endurance Assessment: Pt admitted for Small R temporal SDH without mass effect after fall. 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 Pt states having aide during week but inconsistent with description of how often she is there. Pt is conflicting on many stories regarding home. Pt is mildly unsteady and required cane. Pt fatigues with stairs. Pt is not safe to go home. Pt reports having no one to stay withher. Recommend facility based therapy Prognosis: Good Decision Making: Low Complexity PT Education: PT Role;Plan of Care;Goals REQUIRES PT FOLLOW UP: Yes Activity Tolerance Activity Tolerance: Patient limited by fatigue Patient Diagnosis(es): There were no encounter diagnoses. has a past medical history of Anxiety, Arthritis, Cancer (HCC), Depression, and Subdural hematoma caused by concussion (HCC). has a past surgical history that includes Breast surgery (Left, 2012). Restrictions Restrictions/Precautions Restrictions/Precautions: Fall Risk, Seizure Required Braces or Orthoses?: No Position Activity Restriction Other position/activity restrictions: Up with assist and ambulate Vision/Hearing Vision: Impaired Vision Exceptions: Wears glasses at all times(Pt does not have glasses here) Hearing: Within functional limits Subjective General Chart Reviewed: Yes Patient assessed for rehabilitation services?: Yes Additional Pertinent Hx: Pt admitted for fall, right facial laceration and Small R temporal SDH without mass effect Family / Caregiver Present: No Follows Commands: Within Functional Limits Subjective Subjective: Pt agreeable for therapy. Pt is conflicting on history of PLOF. Pt states I have an aide there every day but will also say Aide isn't always there. Pt has conflicting stories on cane use and setting up safety measures (grab bars, rails) in house but reports is in SN[facility] Pain Screening Patient Currently in Pain: Yes Pain Assessment Pain Assessment: 0-10 Pain Level: 9 Pain Type: Acute pain Pain Location: Eye Pain Orientation: Right Pain Descriptors: Discomfort Pain Frequency: Intermittent Vital Signs Patient Currently in Pain: Yes Orientation Orientation Overall Orientation Status: Within Normal Limits(answers all questions appropriately but confusing on PLOF) Social/Functional History Social/Functional History Lives With: Alone Type of Home: House Home Layout: Two level Home Access: Stairs to enter with rails(9 steps with right handrail and cane use.) Entrance Stairs - Number of Steps: 2 FREDRICK Bathroom Shower/Tub: (States sponge baths) Bathroom Toilet: Standard Bathroom Accessibility: Accessible Home Equipment: Cane Receives Help From: (Reports having aide helping with cleaning and occasional grocery shopping) ADL Assistance: Independent Homemaking Assistance: Needs assistance Homemaking Responsibilities: Yes Ambulation Assistance: Independent Transfer Assistance: Independent Active Housekeeper Caregiver: Yes(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 Pt hasa pet dog. Pt is a questionable historian and inconsistent with information regarding how much assist is available at home. Cognition Cognition Overall Cognitive Status: Exceptions(Simultaneous filing. User may not have seen previous data.) Cognition Comment: Confusion on prior level of function, appropriately follows commands Objective Observation/Palpation Observation: right eye laceration, right eye swollen (able to track with right eye and see fingers on peripheral vision) AROM RLE (degrees) RLE AROM: WFL AROM LLE (degrees) LLE AROM : WFL Strength RLE Comment: 4+/5 Strength LLE Comment: 4+/5 Tone RLE RLE Tone: Normotonic Tone LLE LLE Tone: Normotonic Motor Control Gross Motor?: WNL Sensation Overall Sensation Status: (Denies N/Ting on BLE) Bed mobility Supine to Sit: Supervision Sit to Supine: Supervision Transfers Sit to Stand: Minimal Assistance Stand to sit: Minimal Assistance Comment: Mildly unsteady Ambulation Ambulation?: Yes More Ambulation?: Yes Ambulation 1 Surface: level tile Device: No Device Assistance: Minimal assistance Quality of Gait: Pt attempts to reach for support; unsteady Gait Deviations: Decreased step length Distance: 15 feet x2 Ambulation 2 Surface - 2: level tile Device 2: Single point cane Assistance 2: Stand by assistance Quality of Gait 2: mildly unsteady, mildly impulsive Gait Deviations: Slow Carie Distance: 125 feet x2 Stairs/Curb Stairs?: Yes Stairs # Steps : 6 Rails: Right ascending Device: Single pt cane Assistance: Stand by assistance Comment: Pt state I'm too tired to go up more Balance Sitting - Static: Good Sitting - Dynamic: Good Standing - Static: Fair Standing - Dynamic: Fair;- Plan Plan Times per week: 3-5 Plan weeks: 2 weeks Current Treatment Recommendations: Strengthening, Transfer Training, Endurance Training, Neuromuscular Re-education, Patient/Caregiver Education & Training, Equipment Evaluation, Education, &procurement, Home Exercise Program, Safety Education & Training, Positioning, Functional Mobility Training, Balance Training, Gait Training, Stair training, ROM Safety Devices Type of devices: Left in bed, Patient at risk for falls, All fall risk precautions in place, Call light within reach, Bed alarm in place, Nurse notified, Gait belt G-Code OutComes Score AM-PAC Score AM-PAC Inpatient Mobility Raw Score : 16 (04/17/20899) AM-PAC Inpatient T-Scale Score : 40.78 (04/17/20899) Mobility Inpatient CMS 0-100% Score: 54.16 (04/17/20899) Mobility Inpatient CMS G-Code Modifier : CK (04/17/20899) Goals Short term goals Time Frame for Short term goals: 2 weeks Short term goal 1: Bed mobility independence Short term goal 2: Transfers independence Short term goal 3: Ambulate 150 feet x1 with least restrictive device with modified independence Short term goal 4: Ascend/descend 9 steps with handrail with modified independence Patient Goals Patient goals : no goal stated Therapy Time Individual Concurrent Group Co-treatment Time In 805 Time Out 0826 Minutes 20 Variance: (10 minutes for OT eval (Nelson)) Transfer Plan of care over to [facility] Physical Therapy staff. Goals and/or treatment plan was established in collaboration with pt This PT wore N95, gloves and goggles during session Pt wore mask bed alarm on prior to session and bed alarm after session Parvez Bolden, PT * Vincent Salas RN - 04/16/2020 7:00 PM EST Tried to call the pharmacy to update the home medication list and the pharmacy has been closed for the day. * Char Walsh SLP - 04/16/2020 2:38 PM EST Speech Language Pathology Facility/Department: [facility] ICU T2 CLINICAL BEDSIDE SWALLOW EVALUATION NAME: Aiden Fields : 1945 ADMISSION DATE: 04/16/2020 ADMITTING DIAGNOSIS: has Subdural hematoma (HCC) and Laceration of face on their problem list. ONSET DATE: 04/16/2020 Recent Chest Xray/CT of Chest: NA Date of Eval: 04/16/2020 Evaluating Therapist: Char Walsh Current Diet level: Current Diet : NPO Current Liquid Diet : NPO Primary Complaint Patient Complaint: Requesting water and chocolate Pain: RN managing Reason for Referral: ED NOTES: Mechanism of Injury: Fall SH Mechanism of Arrival:Transfer from [facility] Chief Complaint: headache History of Traumatic Injury: 74 y.o. female with history of depression, anxiety, hypothyroidism, hypertension, breast cancer s/p mastectomy, melanoma s/p excision and on baby ASA who presents as transfer from [facility] after patient suffered a mechanical fall resulting in a small right subdural hematoma and forehead complex laceration. She states that she had some vodka yesterday evening and when to bed in the evening (unclear when).Her dog was barking and when she went to clean the pee pad she slipped on it's urine and fell hitting her head on some furniture. She reports LOC unclear duration but was able to get to her feet and padded her right forehead laceration, but it continued to bleed and she pressed her button lifealert. EMS cam and brought her to [facility]. Work up at the OSH, showed that patient had leukocytosis of 14.3 and an h/h of 12.5/ 38.5. CT head was performed and showed - right frontal hematoma and deep laceration extending to the superficla cortex of the right frontal bone at the lateral aspect of the roof of the right orbit (no fractures). Her laceration was repair and she was transferred to [facility] for further management. Upon arriaval she was GCS of 15 and HDS. According to daughter patient is a daily heavy drinker and blacks out often. Did the Patient have LOC? Yes C-collar in place on arrival? No (cleared at OSH?) Subdural hematoma (HCC) Laceration of face Aiden Fields was referred for a bedside swallow evaluation to assess the efficiency of her swallow function, identify signs and symptoms of aspiration and make recommendations regarding safe dietary consistencies, effective compensatory strategies, and safe eating environment. Impression Dysphagia Impression : Patient presents with a clinically functional oropharyngeal swalllow pattern. Recommend a Regular diet including thin liquids and PO meds. No formal dysphagia intervention withSpeech therapy is indicated. Please re-consult if any concerns arise. Treatment Plan Requires NUMERICAL TOOL PROGRAMMER Intervention: No Duration/Frequency of Treatment: na Recommended Diet and Intervention Diet Solids Recommendation: Regular Liquid Consistency Recommendation: Thin General Chart Reviewed: Yes Behavior/Cognition: Alert;Cooperative - patient lives alone - spouse moved to [facility] 9 months ago due to dementia. Patient with daily ETOH use. O2 Device: None (Room air) Communication Observation: Functional Follows Directions: Simple Dentition: Adequate Patient Positioning: Upright in bed Baseline Vocal Quality: Normal Volitional Cough: Strong Prior Dysphagia History: NA Consistencies Administered: Lemon Ice;Thin - straw;Dysphagia Pureed (Dysphagia I);Reg solid Oral Motor Deficits Oral/Motor Oral Motor: Within functional limits Oral Phase Dysfunction Oral Phase Oral Phase: WNL Indicators of Pharyngeal Phase Dysfunction Pharyngeal Phase Pharyngeal Phase: WFL Education Patient Education: Spoke with the patient and the RN Patient Education Response: Verbalizes understanding Safety Devices in place: Yes Therapy Time NUMERICAL TOOL PROGRAMMER Individual Minutes Time In: 1415 Time Out: 1430 Minutes: 15 NUMERICAL TOOL PROGRAMMER Total Treatment Time Total Treatment Time: 15 Char Walsh MS, CRISTOPHER/ NUMERICAL TOOL PROGRAMMER 04/16/2020 2:38 PM An N95 mask, a full face shield and gloves were worn throughout this session. * Vincent Salas RN - 04/16/2020 12:29 PM EST The daughter called and states she drinks a lot and she sips drinks all night to the point of blacking out. * Solomon Tenorio MD - 04/16/2020 11:00 AM EST I was notified by the resident that the patient had arrived on T2 as a Direct Admit. I immediately came to T2 ICU to evaluate patient. I was at the bedside within 15 minutes of patient arrival. Please see H&P for further details. documented in this encounter Assessments Diagnosis Traumatic subdural hematoma with loss of consciousness of 30 minutes or less, subsequent encounter Laceration of face Open wound of face, unspecified site, without mention of complication Alcohol abuse Alcohol abuse, unspecified Fall Unspecified fall Hospital Course Note Department of Trauma / [facility] Discharge Summary Name: Aiden Fields Date: 04/20/2020 6:22 AM : 1945 Age/Sex: 74 y.o. female Admit Date: 04/16/2020 Discharge Date: 04/17/2020 Attending: Solomon Tenorio MD Discharge Diagnosis: 1. Traumatic subdural hematoma with loss of consciousness of 30 minutes or less, subsequent encounter Patient Active Problem List Diagnosis ? Traumatic subdural hematoma with loss of consciousness of 30 minutes or less (HCC) ? Laceration of face ? Alcohol abuse ? Fall There is no height or weight on file to calculate BMI. Reason for Hospitalization: The patient was admitted for fall with SDH. Hospital Course (Care, treatment and services provided): Please see H&P and prior notes for more detailed summary of previous investigations and clinical assessment prior to this admission. Brief HPI From Admission H&P: She states that she had some vodka yesterday evening and when to bed in the evening (unclear when). Her dog was barking and when she (more content not included)... Health Concerns Infection Onset Date Last Indicated Resolved Time COVID-19 Rule-Out 07/12/2021 07/12/2021 07/13/2021 4:39 AM EDT Chief Complaint and Reason for Visit Chief Complaint fall Dizziness LABS/MANDEEP 1 Y FU OSTEO Reason for Visit Hypoparathyroidism a fter procedure Hypothyroidism Chief Complaint Dizziness LABS/MANDEEP 1 Y FU OSTEO FALL Reason for Visit Hypoparathyroidism a fter procedure Hypothyroidism Chief Complaint LABS/MANDEEP 1 Y FU OSTEO FALL Reason for Visit Hypoparathyroidism a fter procedure Hypothyroidism Chief Complaint CUSTODIAL LABWORK CUSTODIAL LABWORK CUSTODIAL LABWORK LAB WORK CUSTODIAL LABWORK LAB WORK CUSTODIAL LABWORK CUSTODIAL LAB WORK CUSTODIAL LABWORK CUSTODIAL LABWORK LABWORK CUSTODIAL LAB WORK LABWORK CUSTODIAL LAB WORK LABWORK FALL CUSTODIAL LABWORK CUSTODIAL LABWORK CUSTODIAL LABWORK CUSTODIAL LAB WORK CUSTODIAL LAB WORK Chief Complaint LAB WORK CUSTODIAL LABWORK LAB WORK CUSTODIAL LABWORK CUSTODIAL LAB WORK CUSTODIAL LABWORK CUSTODIAL LABWORK LABWORK CUSTODIAL LAB WORK LABWORK CUSTODIAL LAB WORK LABWORK FALL CUSTODIAL LABWORK CUSTODIAL LABWORK CUSTODIAL LABWORK CUSTODIAL LAB WORK CUSTODIAL LAB WORK CUSTODIAL LAB WORK FOLLOW UP Chief Complaint CUSTODIAL LABWORK LAB WORK CUSTODIAL LABWORK CUSTODIAL LAB WORK CUSTODIAL LABWORK CUSTODIAL LABWORK LABWORK CUSTODIAL LAB WORK LABWORK CUSTODIAL LAB WORK LABWORK FALL CUSTODIAL LABWORK CUSTODIAL LABWORK CUSTODIAL LABWORK CUSTODIAL LAB WORK CUSTODIAL LAB WORK CUSTODIAL LAB WORK CUSTODIAL LABWORK FOLLOW UP Chief Complaint CUSTODIAL LAB WOR K LABWORK FALL CUSTODIAL LABWORK CUSTODIAL LABWORK CUSTODIAL LABWORK CUSTODIAL LAB WORK CUSTODIAL LAB WORK CUSTODIAL LAB WORK CUSTODIAL LABWORK FOLLOW UP CUSTODIAL LABWORK Chief Complaint CUSTODIAL LAB WOR K CUSTODIAL LABWORK FOLLOW UP CUSTODIAL LABWORK PAIN IN RIGHT THIGH Chief Complaint FOLLOW UP CUSTODIAL LABWORK PAIN IN RIGHT THIGH RIGHT THIGH MASS Chief Complaint CUSTODIAL LABWORK PAIN IN RIGHT THIGH RIGHT THIGH MASS fall Chief Complaint PAIN IN RIGHT THIGH RIGHT THIGH MASS fall Chief Complaint HYPOXIA, SOB Reason for Visit Cough Hypoxia Chief Complaint HYPOXIA ON EXERTION HYPOXIA ON EXERTION Reason for Visit Cough Dyspnea on exertion Hypoxia Chief Complaint alt mental status ENCEPHALOPATHY, UTI, ASPIRATION SUSPECTED W/HYPOXI Reason for Visit Acute hypotension Acute hypoxic respiratory failure Creatinine elevation Encephalopathy due to infection Ketosis Pyuria SIRS (systemic inflammatory response syndrome) Chief Complaint alt mental status ENCEPHALOPATHY, UTI, ASPIRATION SUSPECTED W/HYPOXI ENCEPHALOPATHY, UTI, ASPIRATION SUSPECTED W/HYPOXI ENCEPHALOPATHY, UTI, ASPIRATION SUSPECTED W/HYPOXI Reason for Visit Acute hypotension Acute hypoxic respiratory failure Creatinine elevation Encephalopathy due to infection Ketosis Pyuria SIRS (systemic inflammatory response syndrome) Chief Complaint alt mental status ENCEPHALOPATHY, UTI, ASPIRATION SUSPECTED W/HYPOXI ENCEPHALOPATHY, UTI, ASPIRATION SUSPECTED W/HYPOXI ENCEPHALOPATHY, UTI, ASPIRATION SUSPECTED W/HYPOXI LACERATION Reason for Visit Acute hypotension Creatinine elevation Encephalopathy due to infection Ketosis Pyuria SIRS (systemic inflammatory response syndrome) Chief Complaint Admit Date general illness July 04, 2024 12: 55pm Chief Complaint Admit Date general illness July 04, 2024 12: 55pm URINE DROPOFF September 11, 2024 12:53 pm Additional Source Comments INFORMATION SOURCE (unrecogn ized section and content) DATE CREATED AUTHOR 09/06/2019 [facility] ([place]) DATE CREATED AUTHOR AUTHOR'S ORGANIZ ATION 05/05/2020 [facility] DATE CREATED AUTHOR AUTHOR'S ORGANIZ ATION 01/21/2022 [facility] DATE CREATED AUTHOR AUTHOR'S ORGANIZ ATION 09/22/[address] [facility] DATE CREATED AUTHOR AUTHOR'S ORGANIZ ATION 11/08/2023 [facility] DATE CREATED AUTHOR AUTHOR'S ORGANIZ ATION 09/17/2024 [facility] Source Comments (unrecognize d section and content) In the event this informatio n is protected by the Federal Confidentiality of Alcohol and Drug Abuse Patient Records regulations: The Federal rules restrict any use of the information to criminally investigate or prosecute any alcohol or drug abuse patient.[facility] the event this information is protected by the Federal Confidentiality of Alcohol and Drug Abuse Patient Records regulations: The Federal rules restrict any use of the information to criminally investigate or prosecute any alcohol or drug abuse patient.[facility]In the event this information is protected by the Federal Confidentiality of Alcohol and Drug Abuse Patient Records regulations: The Federal rules restrict any use of the information to criminally investigate or prosecute any alcohol or drug abuse patient.[facility] HospitalIn the event this information is protected by the Federal Confidentiality of Alcohol and Drug Abuse Patient Records regulations: The Federal rules restrict any use of the information to criminally investigate or prosecute any alcohol or drug abuse patient.[facility]In the event this information is protected by the Federal Confidentiality of Alcohol and Drug Abuse Patient Records regulations: The Federal rules restrict any use of the information to criminally investigate or prosecute any alcohol or drug abuse patient.[facility]In the event this information is protected by the Federal Confidentiality of Alcohol and Drug Abuse Patient Records regulations: The Federal rules restrict any use of the information to criminally investigate or prosecute any alcohol or drug abuse patient.[facility] HospitalIn the event this information is protected by the Federal Confidentiality of Alcohol and Drug Abuse Patient Records regulations: The Federal rules restrict any use of the information to criminally investigate or prosecute any alcohol or drug abuse patient.[facility] HospitalIn the event this information is protected by the Federal Confidentiality of Alcohol and Drug Abuse Patient Records regulations: The Federal rules restrict any use of the information to criminally investigate or prosecute any alcohol or drug abuse patient.[facility]In the event this information is protected by the Federal Confidentiality of Alcohol and Drug Abuse Patient Records regulations: The Federal rules restrict any use of the information to criminally investigate or prosecute any alcohol or drug abuse patient.[facility] HospitalIn the event this information is protected by the Federal Confidentiality of Alcohol and Drug Abuse Patient Records regulations: The Federal rules restrict any use of the information to criminally investigate or prosecute any alcohol or drug abuse patient.[facility] HospitalIn the event this information is protected by the Federal Confidentiality of Alcohol and Drug Abuse Patient Records regulations: The Federal rules restrict any use of the information to criminally investigate or prosecute any alcohol or drug abuse patient.[facility] HospitalIn the event this information is protected by the Federal Confidentiality of Alcohol and Drug Abuse Patient Records regulations: The Federal rules restrict any use of the information to criminally investigate or prosecute any alcohol or drug abuse patient.[facility] HospitalIn the event this information is protected by the Federal Confidentiality of Alcohol and Drug Abuse Patient Records regulations: The Federal rules restrict any use of the information to criminally investigate or prosecute any alcohol or drug abuse patient.[facility] HospitalIn the event this information is protected by the Federal Confidentiality of Alcohol and Drug Abuse Patient Records regulations: The Federal rules restrict any use of the information to criminally investigate or prosecute any alcohol or drug abuse patient.[facility] HospitalIn the event this information is protected by the Federal Confidentiality of Alcohol and Drug Abuse Patient Records regulations: The Federal rules restrict any use of the information to criminally investigate or prosecute any alcohol or drug abuse patient.[facility] HospitalIn the event this information is protected by the Federal Confidentiality of Alcohol and Drug Abuse Patient Records regulations: The Federal rules restrict any use of the information to criminally investigate or prosecute any alcohol or drug abuse patient.[facility] HospitalIn the event this information is protected by the Federal Confidentiality of Alcohol and Drug Abuse Patient Records regulations: The Federal rules restrict any use of the information to criminally investigate or prosecute any alcohol or drug abuse patient.[facility] the event this information is protected by the Federal Confidentiality of Alcohol and Drug Abuse Patient Records regulations: The Federal rules restrict any use of the information to criminally investigate or prosecute any alcohol or drug abuse patient.[facility] HospitalIn the event this information is protected by the Federal Confidentiality of Alcohol and Drug Abuse Patient Records regulations: The Federal rules restrict any use of the information to criminally investigate or prosecute any alcohol or drug abuse patient.[facility] HospitalIn the event this information is protected by the Federal Confidentiality of Alcohol and Drug Abuse Patient Records regulations: The Federal rules restrict any use of the information to criminally investigate or prosecute any alcohol or drug abuse patient.[facility] HospitalIn the event this information is protected by the Federal Confidentiality of Alcohol and Drug Abuse Patient Records regulations: The Federal rules restrict any use of the information to criminally investigate or prosecute any alcohol or drug abuse patient.[facility] HospitalIn the event this information is protected by the Federal Confidentiality of Alcohol and Drug Abuse Patient Records regulations: The Federal rules restrict any use of the information to criminally investigate or prosecute any alcohol or drug abuse patient.[facility] HospitalIn the event this information is protected by the Federal Confidentiality of Alcohol and Drug Abuse Patient Records regulations: The Federal rules restrict any use of the information to criminally investigate or prosecute any alcohol or drug abuse patient.[facility] HospitalIn the event this information is protected by the Federal Confidentiality of Alcohol and Drug Abuse Patient Records regulations: The Federal rules restrict any use of the information to criminally investigate or prosecute any alcohol or drug abuse patient.[facility] HospitalIn the event this information is protected by the Federal Confidentiality of Alcohol and Drug Abuse Patient Records regulations: The Federal rules restrict any use of the information to criminally investigate or prosecute any alcohol or drug abuse patient.[facility] Reason for Visit (unrecogniz ed section and content) Reason Comments Ear Pain right ear having courtney n and is plugged, stuffy nose, coughingx 1 week Reason Comments Port Flush Reason Comments Patient Update Reason Comments Appointment Reason Comments Radiology CT Specialty Diagnoses / Procedures Referred By Contac t Referred To Contact CT IMAGING Diagnoses SDH (subdural hematoma) (HCC) Procedures CT BRAIN WO IVCON CT HEAD/BRAIN W/O CONTRAST MATERIAL Yolie Lowe PA-C [address] [place] [address] Ct Imaging Referral ID Status Reason Start Date Expiration Date V isits Requested Visits Authorized [id number] Closed Auto-Generate d Referral 10/25/2021 11/10/2022 1 1 Reason Comments Post Op fu rib fx and pneumo thorax, rib plating Reason Comments Radio Gen RMP Specialty Diagnoses / Procedures Referred By Contac t Referred To Contact MR IMAGING Diagnoses SDH (subdural hematoma) (HCC) Cerebral hemorrhage (HCC) Procedures MRI BRAIN WO/W IVCON MRI BRAIN BRAIN STEM W/O W/CONTRAST MATERIAL Sherice Rosenberg, [employer] MEMBER.C[employer]ETERY LABORER [address] [address] Mr Imaging Referral ID Status Reason Start Date Expiration Date V isits Requested Visits Authorized [id number] Closed Auto-Generate d Referral 11/03/2021 12/03/2022 1 1 Reason Comments Established Patient Reason Comments Cough Cough x 3 weeks Reason Comments Results Care Teams (unrecognized sec tion and content) Alterations Workroom Clerk Relationship Specialty Start Date End Date Erica Richardson, [address] [place] [address] PCP - General Family Practice 02/15/17 Alterations Workroom Clerk Relationship Specialty Start Date End Date Erica Richardson DO [address] [place] [address] PCP - General Family Practice 02/15/17 Alterations Workroom Clerk Relationship Specialty Start Date End Date Erica Richardson DO [address] [place] [address] PCP - General Family Practice 02/15/17 Alterations Workroom Clerk Relationship Specialty Start Date End Date Erica Richardson DO [address] [place] [address] PCP - General Family Practice 02/15/17 Alterations Workroom Clerk Relationship Specialty Start Date End Date Erica Richardson DO [address] [place] [address] PCP - General Family Practice 02/15/17 Alterations Workroom Clerk Relationship Specialty Start Date End Date Erica Richardson DO [address] [place] [address] PCP - General Family Practice 02/15/17 Alterations Workroom Clerk Relationship Specialty Start Date End Date Erica Richardson DO [address] [place] [address] PCP - General Family Practice 02/15/17 Alterations Workroom Clerk Relationship Specialty Start Date End Date Erica Richardson DO [address] [place] [address] PCP - General Family Practice 02/15/17 Alterations Workroom Clerk Relationship Specialty Start Date End Date Malys, Erica A, DO [address] [place] [address] PCP - General Family Practice 02/15/17 Alterations Workroom Clerk Relationship Specialty Start Date End Date Erica Richardson DO [address] [place] [address] PCP - General Family Medicine 02/15/17 Alterations Workroom Clerk Relationship Specialty Start Date End Date Erica Richardson DO [address] [place] [address] PCP - General Family Medicine 02/15/17 Team Status: Active Member Role Status Dates Dr. Erica Richardson DO Family Provider Active Dr. Erica Richardson DO Primary Care Provider Active Team Status: Inactive Member Role Status Dates Dr. Erica Richardson DO Primary Care Provider Active Aiden Mcgrath MANAGER UTILIZATION, MANAGER UTILIZATION-C Attending Provider Active Team Status: Active Member Role Status Dates Dr. Erica Richardson DO Primary Care Provider Active Dr. Froy Simmons MD Attending Provider Active Team Status: Inactive Member Role Status Dates Dr. Erica Richardson DO Primary Care Provider Active Roberto Andre MD Attending Provider Active Team Status: Inactive Member Role Status Dates Dr. Erica Richardson DO Primary Care Provider, Attending P rovider Active Alterations Workroom Clerk Relationship Specialty Start Date End Date Erica RichardsonDO [address] [place] [address] PCP - General Family Medicine 02/15/17 Team Status: Inactive Member Role Status Dates Dr. Erica Richardson DO Primary Care Provide r, Attending Provider, Referring Provider Active Team Status: Inactive Member Role Status Dates Dr. Erica Richardson DO Primary Care Provider Active Roberto SMITH MD Attending Provider Active Team Status: Inactive Member Role Status Dates Dr. Erica Richardson DO Primary Care Provider Active Dr. Sim Ly MD Emergency Provider Active Team Status: Active Member Role Status Dates Dr. Erica Richardson DO Primary Care Provider, Referring P rovider Active Dr. Froy Simmons MD Attending Provider Active Team Status: Inactive Member Role Status Dates Dr. Erica Richardson DO Primary Care Provider Active Dr. Sim Ly MD Attending Provider, Emergency Provider Active Team Status: Active Member Role Status Dates Dr. Erica Richardson DO Primary Care Provider Active Dr. Katie Randle DO Emergency Provider Active Dr. Bandar Chanel MD Admit Provider, Attending Provi alexander Active Alterations Workroom Clerk Relationship Specialty Start Date End Date Elena Richardsonshiva Shannon DO [address] [place] [address] PCP - General Family Medicine 02/15/17 Team Status: Active Member Role Status Dates Dr. Erica Richardson DO Primary Care Provider Active Dr. Katie Randle DO Emergency Provider Active Dr. Bandar Chanel MD Admit Provider, A ttending Provider, Other Provider Active Team Status: Inactive Member Role Status Dates Dr. Erica Richardson DO Primary Care Provider Active Dr. Katie Randle , DO Emergency Provider Active Dr. Bandar Chanel MD Admit Provider, Other Provider Active Dr. James Lamar , DO Attending Provider Active Alterations Workroom Clerk Relationship Specialty Start Date End Date Debra Erica Shannon DO [address] [place] [address] PCP - General Family Medicine 02/15/17 Team Status: Active Member Role Status Dates Dr. Erica Richardson DO Primary Care Provider Active Dr. Jorge Cardona MD Emergency Provider Active Dr. Aggie Bolton MD Attending Provider Active Team Status: Active Member Role Status Dates Dr. Erica Richardson DO Primary Care Provider Active Dr. Jorge Cardona MD Emergency Provider Active Dr. Aggie Bolton MD Admit Provider, Attending Prov ider Active Team Status: Active Member Role Status Dates Dr. Erica Richardson DO Primary Care Provider Active Dr. Jorge Cardona MD Emergency Provider Active Dr. Aggie Bolton MD Admit Provider, Other Provider Active Dr. Froy Velázquez , DO Attending Provider, Other Provid er Active Dr. Vernon Osman MD Other Provider Active Team Status: Inactive Member Role Status Dates Dr. Erica Richardson DO Primary Care Provider Active Dr. Jorge Cardona MD Emergency Provider Active Dr. Aggie Bolton MD Admit Provider, Other Provider Active Dr. Froy Velázquez DO Attending Provider Active Dr. Vernon Osman MD Other Provider Active Alterations Workroom Clerk Relationship Specialty Start Date End Date Elena Richardsonshiva Shannon DO [address] [place] [address] PCP - [facility] Family Medicine 02/15/17 Team Status: Inactive Member Role Status Dates Dr. Erica Richardson DO Primary Care Provider Active Dr. Seb Bautista DO Emergency Provider Active Alterations Workroom Clerk Relationship Specialty Start Date End Date Elena Richardsona ShivaDO [address] [place] [address] PCP - [facility] Family Medicine 02/15/17 Alterations Workroom Clerk Relationship Specialty Start Date End Date Elena Richardsonshiva Shannon DO [address] [place] [address] PCP - [facility] Medicine 02/15/17 Alterations Workroom Clerk Relationship Specialty Start Date End Date Erica RichardsonDO [address] [place] [address] PCP - [facility] Family Medicine 02/15/17 Team Status: Active Member Role Status Dates Dr. Erica Richardson DO Primary Care Provider Active Team Status: Inactive Member Role Status Dates Dr. Erica Richardson DO Primary Care Provider Active Start: April 24, 2024 End: April 24, 2024 Dr. Erica Richardson DO Attending Provider Active St art: April 24, 2024 End: April 24, 2024 Dr. Erica Richardson DO Referring Provider Active St art: April 24, 2024 End: April 24, 2024 Team Status: Inactive Member Role Status Dates Dr. Erica Richardson DO Primary Care Provider Active Start: May 27, 2024 End: May 27, 2024 Dr. Erica Richardson DO Attending Provider Active St art: May 27, 2024 End: May 27, 2024 Team Status: Inactive Member Role Status Dates Dr. Erica Richardson DO Primary Care Provider Active Start: June 04, 2024 End: June 04, 2024 Dr. Erica Richardson DO Attending Provider Active St art: June 04, 2024 End: June 04, 2024 Dr. Erica Richardson DO Referring Provider Active St art: June 04, 2024 End: June 04, 2024 Team Status: Inactive Member Role Status Dates Dr. Erica Richardson DO Primary Care Provider Active Start: July 04, 2024 End: July 04, 2024 Dr. Froy Cameron , Emergency Provider Active Start: July 04, 2024 End: July 04, 2024 Team Status: Inactive Member Role Status Dates Dr. Erica Richardson DO Primary Care Provider Active Start: July 04, 2024 End: July 04, 2024 Dr. Froy Cameron DO Attending Provider Active Start: July 04, 2024 End: July 04, 2024 Dr. Froy Cameron , Emergency Provider Active Start: July 04, 2024 End: July 04, 2024 Team Status: Inactive Member Role Status Dates Dr. Erica Richardson DO Primary Care Provider Active Start: August 05, 2024 End: August 05, 2024 Dr. Erica Richardson DO Attending Provider Active St art: August 05, 2024 End: August 05, 2024 Team Status: Inactive Member Role Status Dates Dr. Erica Richardson DO Primary Care Provider Active Start: August 21, 2024 End: August 21, 2024 Dr. Erica Richardson DO Attending Provider Active St art: August 21, 2024 End: August 21, 2024 Dr. Erica Richardson DO Referring Provider Active St art: August 21, 2024 End: August 21, 2024 Team Status: Inactive Member Role Status Dates Dr. Erica Richardson DO Primary Care Provider Active Start: September 11, 2024 End: September 11, 2024 Dr. Erica Richardson DO Attending Provider Active St art: September 11, 2024 End: September 11, 2024 Dr. Erica Richardson , DO Referring Provider Active St art: September 11, 2024 End: September 11, 2024 Leia Martinez Other Provider Active Start: September 11, 2024 End: September 11, 2024 Goals (unrecognized section and content) Goals may be documented in a n alternate sectionGoals may be documented in an alternate sectionGoals may be documented in an alternate sectionGoals may be documented in an alternate sectionGoals may be documented in an alternate sectionGoals may be documented in an alternate sectionGoals may be documented in an alternate sectionGoals may be documented in an alternate sectionGoals may be documented in an alternate sectionGoals may be documented in an alternate sectionGoals may be documented in an alternate sectionGoals may be documented in an alternate sectionGoals may be documented in an alternate sectionGoals may be documented in an alternate sectionGoals may be documented in an alternate sectionGoals may be documented in an alternate sectionGoals may be documented in an alternate sectionGoals may be documented in an alternate sectionGoals may be documented in an alternate sectionGoals may be documented in an alternate sectionGoals may be documented in an alternate sectionGoals may be documented in an alternate sectionGoals may be documented in an alternate sectionGoals may be documented in an alternate sectionGoals may be documented in an alternate sectionGoals may be documented in an alternate sectionGoals may be documented in an alternate sectionGoals may be documented in an alternate sectionGoals may be documented in an alternate sectionGoals may be documented in an alternate sectionGoals may be documented in an alternate sectionGoals may be documented in an alternate sectionGoals may be documented in an alternate sectionGoals may be documented in an alternate sectionGoals may be documented in an alternate sectionGoals may be documented in an alternate sectionGoals may be documented in an alternate section FOR RECORDS PERTAINING TO PATIENTS WHO ARE OR HAVE BEEN ENROLLED IN A CHEMICAL DEPENDENCY/SUBSTANCEABUSE PROGRAM, SOME INFORMATION MAY BE OMITTED. This clinical summary was aggregated from multiple sources. Caution should be exercised in using it in the provision of clinical care. This summary normalizes information from multiple sources, and as a consequence, information in this document may materially change the coding, format and clinical context of patient data. In addition, data may be omitted in some cases. CLINICAL DECISIONS SHOULD BE BASED ON THE PRIMARY CLINICAL RECORDS. [facility] [employer] [facility]. provides no warranty or guarantee of the accuracy or completeness of information in this document.
--- OUTSIDE RECORDS SUMMARY | 2024-09-22 23:21 | XMS RPT_ITS | CCD ---
Author Organization [facility] Care Team Providers Care Magnetic Resonance Technologist Name Role Phone Unavailable Primary Care Provider UnavailErica Gee DO Primary Care Provider Dr. Erica Richardson Primary Care Provider Dr. Erica Richardson Referring Provider Dr. Don Gallegos Attending Provider Dr. Don Gallegos Attending Provider Alcides MARKETING LIAISON, MARKETING LIAISON-C Aiden Attending Provider Unav Dr. Erica Batista Primary Care Provider Erica Richardson DO Primary Care Provider Erica Richardson DO Primary Care Provider [phone] ERICA RICHARDSON Primary Care Unavailable DEBRA, ERICA [...] Dr. Erica Richardson Primary Care Provider Alcides MARKETING LIAISON, MARKETING LIAISON-C Aiden Attending Provider Unav Erica Batista DO Primary Care Provider Dr. Froy Simmons Attending Provider [phone] Erica Richardson Primary Care Provider [phone] Dr. Froy Simmons Attending Provider Liborioys, Dr. [...] Provider Debra DO, Dr. Maldonado Attending Provider [phone] Debra DO, Dr. Maldonado Referring Provider Anupama [...] adverse reactions to drug 04-16-20 20 Palpitations [facility], [place] (20 sources) bacitracin / neomycin / polymyxin b; Translations: [NEOMYCIN-BACITRAC IN-POLYMYXIN] Drug Allergy 08-15-19 07 [facility] Work Phone: (20 sources) diphenhydrAMINE; Translations: [DIPHENHYDRAMINE HCL] Drug Allergy 10-28-19 13 [facility] (20 sources) Propylamine derivative antihistamine; Translations: [ANTIHISTAMINES - ALKYLAMINE] Propensity to adverse reactions 10-07-19 08 Intolerance [facility] (20 sources) Bacitracin Drug Allergy 08-08-19 22 Unknown [facility] (20 sources) Neomycin Drug Allergy 08-08-19 22 Unknown [facility] (20 sources) Polymyxin B Drug Allergy 08-08-19 22 Unknown [facility] (20 sources) diphenhydrAMINE Drug Allergy 01-11-20 22 PT UNSURE OF REACTION [facility] (20 sources) Antihistamines - Alkylamine Allergy to substance 01-11-20 PT UNSURE OF REACTION [facility] (1 source) Bacitracin Drug Allergy 07-05-19 25 [facility] Repository (1 source) diphenhydrAMINE Drug Allergy 03-02-20 24 [facility] Repository (1 source) Neomycin Drug Allergy 03-02-20 [facility] Repository (1 source) Antihistamines - Alkylamine Drug allergy (disorder) 03-02-20 24 [facility] Repository (1 source) polymyxin B Drug allergy (disorder) 03-02-20 [facility] Repository Medications Current Medications Medication Drug Class(es) [...] every 6 hours as needed for pain. [id number] actuat albuterol 0.09 mg/actuat metered dose [...] Comment on above: Take 1 capsule by [facility] once daily. Calcium Carb And Citrate-Vitd3 (Citracal-D3 [...] Comment on above: Take 1 tablet by aielen th once daily. clonazePAM 1 mg oral [...] hydrochloride 5 mg oral tablet (20 sources) F-mqeqwz-E-aspartate Receptor Antagonist Start: 3 take 1 tablet [...] inje ction 32.5 mg polyethylene glycol 3350 [id number] mg powder for oral solution (20 sources) [...] 09, 2019 8:43pm take 1 capsule by [facility] twice daily pregabalin (LYRICA) 75 mg capsule [...] on above: Take 1 capsule by [facility] three times daily as needed for cough. [...] tablet by aileen th once daily. Vitamins A,C,A-Xfiy-Pnbuxl ([facility]) 14,320-226-200 bnwc-uv-ogqg capsule (20 sources) Start: 05-01-2017 End: 09-09-2019 take 1 capsule by mouth once daily Vitamins A,C,D-Trjc-Opfewv ([facility]) 14,320-226-200 boav-yd-xwmq capsule Discontinued 1 CAP PO DAILY May 01, 2017 10:26am September 09, 2019 8:44pm Start: 05-01-2017 End: 09-09-2019 Vitamins A,C,H-Yeqp-Efqlob ([facility]) 14,320-226-200 jgja-xe-tlhb capsule Discontinued 1 NMA PO DAILY May 01, 2017 1:00am September 09, 2019 8:44pm Start: 05-01-2017 End: 09-09-2019 take 1 capsule by mouth once daily Vitamins A,C,Q-Fvmk-Rfuodi ([facility]) 14,320-226-200 mdsj-ff-gjqi capsule Discontinued 1 CAP PO DAILY May 01, 2017 12:00am September 09, 2019 7:44pm Start: 05-01-2017 End: 09-09-2019 take 1 capsule by mouth once daily Vitamins A,C,F-Giyc-Zksopd ([facility]) 14,320-226-200 powu-ai-jhmj capsule Discontinued 1 CAP PO DAILY May [...] vertebra, unspecified cervical vertebral level, initial encounter ([facility])] Onset: 10-07-2021 Episodic Other injuries and conditions [...] Facility Urine Cultureon 09-13-2024 [facility] Citrobacter freundii Durant Count >100,000 Citrobacter freundii: REACTION Cefepime Islt BENJAMIN <=0.12 cefTRIAXone Islt BENJAMIN 0.5 S Ciprofloxacin Islt BENJAMIN 0.5 I Gentamicin Islt BENJAMIN <=1 S levoFLOXacin Islt BENJAMIN 1 I Meropenem Islt BENJAMIN <=0.25 S Nitrofurantoin Islt BENJAMIN <=16 S Pip+Tazo Islt BENJAMIN <=4 S TMP SMX Islt BENJAMIN >=320 R Normal [facility] Comment on above: Performed By: #### M 100.2200 #### [facility] Laboratory [address] [place], [place] [address]all [facility]. [place], [place], [id number] Urine cultureOrdered By: Elena Richardson on 09-11-2024 Bacteria identified Cx Nom (U) Citrobacter freundii Abnormal [facility] Urine Cultureon 08-23-2024 [facility] Citrobacter youngae Durant Count 80,000-100,000 Citrobacter youngae: REACTION Cefepime Islt BENJAMIN <=0.12 cefTRIAXone Islt BENJAMIN 8 R Ciprofloxacin Islt BENJAMIN <=0.06 S Gentamicin Islt BENJAMIN <=1 S levoFLOXacin Islt BENJAMIN <=0.12 S Meropenem Islt BENJAMIN <=0.25 S Nitrofurantoin Islt BENJAMIN <=16 S Pip+Tazo Islt BENJAMIN <=4 S TMP SMX Islt BENJAMIN <=20 S Normal [facility] Comment on above: Performed By: #### M 100.2200 #### [facility] Laboratory [address] [place], [place], [id number] Urine cultureOrdered By: Elena Richardson on 08-21-2024 Bacteria identified Cx Nom (U) Citrobacter youngae Abnormal [facility] Urine Cultureon 08-07-2024 [facility] Enterococcus faecali s Durant Count 11,000-25,000 Enterococcus faecalis: REACTION Ampicillin Islt BENJAMIN <=2 Ciprofloxacin Islt BENJAMIN >=8 R Gentamicin Synergy Susc Islt SYN-R R levoFLOXacin Islt BENJAMIN >=8 R Linezolid Islt BENJAMIN 2 S Nitrofurantoin Islt BENJAMIN <=16 S Streptomycin High Pot Susc Islt SYN-S S Tetracycline Islt BENJAMIN >=16 R Vancomycin Islt BENJAMIN 1 S Normal [facility] Comment on above: Performed By: #### M 100.2200 ####[facility] [id number] [place], [place], [id number] Urine cultureOrdered By: Elena Richardson on 08-05-2024 Bacteria identified Cx Nom (U) Enterococcus faecalis Abnormal [facility] 12 Lead EKGon 07-04-2024 12 Lead EKG [facility] Cardiovascular Services [address] [place] [address] 12 Lead EKG 07/04/24 1343 MR#: [id number] Acct: [id number] Name: AIDEN FIELDS Consuelo Rep #: [id number] : 1945 78 From: Jose Hamilton MD [...] normal ECG Confirmed by JOSE HAMILTON MD ([id number]), editor continuity and script JUVENCIO MARIA ([id number]) on 07/06/2024 8:17:29 AM Referred By: ANUPAMA Confirmed By: JOSE HAMILTON MD 07/06/24816 Date Jose Hamilton MD CC: Dr. Froy Cameron, DO; Dr. Erica Richardson DO Signed Normal [facility] Absolute lymphocyte countOrd ered By: Froy Cameron on 07-04-2024 Lymphocytes Auto (Unsp spec) [#/Vol] 1.95 10*3/uL 0.83-4.51 [facility] Absolute neutrophil countOrd ered By: Froy Cameron on 07-04-2024 Neutrophils (Bld) [#/Vol] 6.0 10*3/uL 2.0-7.7 [facility] Amorphous sediment detection in urine sediment by light microscopyOrdered By: Froy Cameron on 07-04-2024 Amorphous sediment LM Ql (Urine sed) 2+ PHOS [facility] Anion gap in Serum or Plasma Ordered By: Froy Cameron on 07-04-2024 Anion gap [Moles/Vol] 12 mmol/L 5-15 [facility] Automated lymphocyte count a s percentage of total leukocytesOrdered By: Froy Cameron on 07-04-2024 Lymphocytes/100 WBC Auto (Unsp spec) 21.2 % 19-41 [facility] BUN/creatinine ratioOrdered By: Froy Cameron on 07-04-2024 Urea nitrogen/Creatinine [Mass ratio] 20.2 mg/mg High 10-20 [facility] Basophil percentageOrdered B y: Froy Cameorn on 07-04-2024 Basophils/100 WBC (Bld) 0.9 % 0-1 W [facility] Bilirubin Test strip Ql (U)O rdered By: Froy Cameron on 07-04-2024 Bilirubin Ql (U) Negative Negative [facility] Bilirubin, totalOrdered By: Froy Cameron on 07-04-2024 Bilirubin [Mass/Vol] 0.35 mg/dL 0.00-1.30 [facility] CBC W/Diff, Automatedon 06-20 Absolute Lymph 1.95 X10 3/uL Normal 0.83-4.51 [facility] Comment on above: Performed By: #### L 501.9520, L500.4050, L100.0100 #### [facility] Laboratory [address] [place], [address] Absolute Neut 6.0 X10 3/uL Normal 2.0-7.7 [facility] Comment on above: Performed By: #### L 501.9520, L500.4050, L100.0100 #### [facility] Laboratory [address] [place], [address] Basophils/100 WBC (Bld) 0.9 % Normal 0-1 W [facility] Comment on above: Performed By: #### L 501.9520, L500.4050, L100.0100 #### [facility] Laboratory [address] [place], [address] Eosinophils/100 WBC (Bld) 3.6 % Normal 0-5 [facility] Comment on above: Performed By: #### L 501.9520, L500.4050, L100.0100 #### [facility] Laboratory [address] [place], [address] Erythrocyte distribution width (RBC) [Ratio] 13.4 % Normal 11.6-14.6 [facility] Comment on above: Performed By: #### L 501.9520, L500.4050, L100.0100 #### [facility] Laboratory [address] [place], [address] Hematocrit (Bld) [Volume fraction] 36.9 % Low 37-47 [facility] Comment on above: Performed By: #### L 501.9520, L500.4050, L100.0100 #### [facility] Laboratory [address] [place], [address] Hemoglobin (Bld) [Mass/Vol] 12.3 g/dL Normal 12.0-15.0 [facility] Comment on above: Performed By: #### L 501.9520, L500.4050, L100.0100 #### [facility] Laboratory [address] [place], [address] IG% 0.400 Normal 0.0-0.9 [facility] Comment on above: Result Comment: IG% - Immature Granulocytes (promyelocytes, myelocytes and metamyelocytes) > 1% indicates that a LEFT SHIFT is Present. Performed By: #### L 501.9520, L500.4050, L100.0100 #### [facility] Laboratory [address] [place], [address] Lymphocytes/100 WBC (Bld) 21.2 % Normal 19-41 [facility] Comment on above: Performed By: #### L 501.9520, L500.4050, L100.0100 #### [facility] Laboratory [address] [place], [address] MCH (RBC) [Entitic mass] 32.5 pg High 27.0-32.0 [facility] Comment on above: Performed By: #### L 501.9520, L500.4050, L100.0100 #### [facility] Laboratory [address] [place], [address] MCHC (RBC) [Mass/Vol] 33.3 g/dL Normal 32-36 [facility] Comment on above: Performed By: #### L 501.9520, L500.4050, L100.0100 #### [facility] Laboratory [address] [place], [address] MCV (RBC) [Entitic vol] 97.6 fL Normal 81-99 W [facility] Comment on above: Performed By: #### L 501.9520, L500.4050, L100.0100 #### [facility] Laboratory [address] [place], [address] Monocytes/100 WBC (Bld) 8.9 % Normal 0-10 [facility] Comment on above: Performed By: #### L 501.9520, L500.4050, L100.0100 #### [facility] Laboratory [address] [place], [address] Neutrophils/100 WBC (Bld) 65.0 % Normal 47-70 [facility] Comment on above: Performed By: #### L 501.9520, L500.4050, L100.0100 #### [facility] Laboratory [address] [place], [address] Nucleated RBC (Bld) [#/Vol] 0 10*3/uL Normal 0-5 [facility] Comment on above: Performed By: #### L 501.9520, L500.4050, L100.0100 #### [facility] Laboratory [address] [place], [address] Platelet mean volume (Bld) [Entitic vol] 11.8 fL Normal 6.2-12.0 [facility] Comment on above: Performed By: #### L 501.9520, L500.4050, L100.0100 #### [facility] Laboratory [address] [place], [address] Platelets (Bld) [#/Vol] 236 10*3/uL Normal 150-450 [facility] Comment on above: Performed By: #### L 501.9520, L500.4050, L100.0100 #### [facility] Laboratory [address] [place], [address] RBC (Bld) [#/Vol] 3.78 10*6/uL Low 4.2-5.4 [facility] Comment on above: Performed By: #### L 501.9520, L500.4050, L100.0100 #### [facility] Laboratory [address] [place], [address] RDW SD 48.0 fl High 35.1-43.9 [facility] Comment on above: Performed By: #### L 501.9520, L500.4050, L100.0100 #### [facility] Laboratory [address] [place], [address] WBC (Bld) [#/Vol] 9.2 10*3/uL Normal 4.4-11.0 [facility] Comment on above: Performed By: #### L 501.9520, L500.4050, L100.0100 #### [facility] Laboratory [address] [place], [address] Carbon dioxide, total [Moles /volume] in Central venous bloodOrdered By: Froy Cameron on 07-04-2024 CO2 [Moles/Vol] 26.3 mmol/L 21.0-32.0 [facility] Chest PA and Lateralon 07-04 Chest PA and Lateral [facility] Imaging Services [address] [place] [address] Chest PA and Lateral MR#: [id number] Acct: [id number] Name: AIDEN FIELDS Rep #: [id number] : 1945 F 78 From: Reagan Nguyen PCP: Dr. Erica Richardson DO Status: [facility] ER Study: Chest PA and Lateral Date of Exam: 07/04/24 Exam# [id number] Ordering Dr: Froy Cameron DO PROCEDURE: CHEST [...] Froy Cameron, DO; Dr. Erica Richardson, DO Temperature Regulator: Signed Normal [facility] Chloride assayOrdered By: Miracle Cameron on 07-04-2024 Chloride [Moles/Vol] 100 mmol/L 98-108 [facility] Comprehensive Metabolic Prof ilon 07-04-2024 Albumin [Mass/Vol] 4.0 g/dL Normal 3.4-4.8 [facility] Comment on above: Performed By: #### L 501.9520, L500.4050, L100.0100 #### [facility] Laboratory [address] [place], [address] Albumin/Globulin [Mass ratio] 1.4 {ratio} Normal 0.9-2.4 [facility] Comment on above: Performed By: #### L 501.9520, L500.4050, L100.0100 #### [facility] Laboratory [address] [place], [address] ALK PHOS 82 U/L Normal 35-104 [facility] Comment on above: Performed By: #### L 501.9520, L500.4050, L100.0100 #### [facility] Laboratory [address] [place], [address] ALT [Catalytic activity/Vol] 12 U/L Normal <=34 [facility] Comment on above: Performed By: #### L 501.9520, L500.4050, L100.0100 #### [facility] Laboratory [address] [place], [address] AST [Catalytic activity/Vol] 21 U/L Normal <=31 [facility] Comment on above: Performed By: #### L 501.9520, L500.4050, L100.0100 #### [facility] Laboratory [address] [place], [address] Bilirubin [Mass/Vol] 0.35 mg/dL Normal 0.00-1.30 [facility] Comment on above: Performed By: #### L 501.9520, L500.4050, L100.0100 #### [facility] Laboratory [address] [place], [address] BUN/CRE 20.2 RATIO High 10-20 [facility] Comment on above: Performed By: #### L 501.9520, L500.4050, L100.0100 #### [facility] Laboratory [address] [place], [address] Calcium [Mass/Vol] 8.6 mg/dL Normal 7.6-11.0 [facility] Comment on above: Performed By: #### L 501.9520, L500.4050, L100.0100 #### [facility] Laboratory [address] [place], [address] Chloride [Moles/Vol] 100 mmol/L Normal 98-108 [facility] Comment on above: Performed By: #### L 501.9520, L500.4050, L100.0100 #### [facility] Laboratory [address] [place], [address] CO2 [Moles/Vol] 26.3 mmol/L Normal 21.0-32.0 [facility] Comment on above: Performed By: #### L 501.9520, L500.4050, L100.0100 #### [facility] Laboratory [address] [place], [address] Creatinine [Mass/Vol] 0.79 mg/dL Normal 0.70-1.20 [facility] Comment on above: Performed By: #### L 501.9520, L500.4050, L100.0100 #### [facility] Laboratory [address] [place], [address] ECRCL 61.64 ml/min Normal 50-250 [facility] Comment on above: Performed By: #### L 501.9520, L500.4050, L100.0100 #### [facility] Laboratory [address] [place], [address] GAP 12 Normal 5-15 [facility] Comment on above: Performed By: #### L 501.9520, L500.4050, L100.0100 #### [facility] Laboratory [address] [place], [address] GFR/1.73 sq M.predicted among non-blacks MDRD (S/P/Bld) [Vol rate/Area] 77 mL/min/{1.73_m2} Normal >60 [facility] Comment on above: Result Comment: mL/m in/1.73m2 CKD-EPI Creatinine Equation (2020) Performed By: #### L 501.9520, L500.4050, L100.0100 #### [facility] Laboratory [address] [place], [address] Globulin (S) [Mass/Vol] 2.9 g/dL Normal 2.2-4.2 [facility] Comment on above: Performed By: #### L 501.9520, L500.4050, L100.0100 #### [facility] Laboratory [address] [place], [address] Glucose [Mass/Vol] 98 mg/dL Normal 70-99 [facility] Comment on above: Performed By: #### L 501.9520, L500.4050, L100.0100 #### [facility] Laboratory [address] [place], [address] Potassium [Moles/Vol] 4.0 mmol/L Normal 3.3-5.1 [facility] Comment on above: Performed By: #### L 501.9520, L500.4050, L100.0100 #### [facility] Laboratory [address] [place], [address] Sodium [Moles/Vol] 139 mmol/L Normal 133-145 [facility] Comment on above: Performed By: #### L 501.9520, L500.4050, L100.0100 #### [facility] Laboratory [address] [place], [address] T PROT 6.9 g/dL Normal 5.9-8.4 [facility] Comment on above: Performed By: #### L 501.9520, L500.4050, L100.0100 #### [facility] Laboratory [address] [place], [address] Urea nitrogen [Mass/Vol] 16 mg/dL Normal 4-19 [facility] Comment on above: Performed By: #### L 501.9520, L500.4050, L100.0100 #### [facility] Laboratory [address] [place], [address] Emergency Department Summary on 07-04-2024 Emergency Department Summary [facility] Medical Records Department [address] [place] [address] Emergency Department Summary 07/04/24 MR#: [id number] Acct: [id number] Name: AIDEN FIELDS Rep #: [id number] : 1945 78 From: Froy Cameron DO [...] this could be due to her medications. [facility] Medical History Anxiety and depression Hypoparathyroidism after [...] Neosporin Allergy Unknown Unknown Verified 07/04/24 13:01 ([id number])) neomycin (From Neosporin Allergy Unknown Unknown Verified 03/02/24 21:55 (mrk-[id number])) polymyxin B (From Neosporin Allergy Unknown Unknown Verified 03/02/24 21:55 (rip-tlz-ybgot)) Antihistamines - Alkylamine Allergy PT UNSURE Verified [...] thyroidectomy S (more content not included)... Normal [facility] Eosinophil percentageOrdered By: Froy Cameron on 07-04-2024 Eosinophils/100 WBC (Bld) 3.6 % 0-5 [facility] Epithelial cells.squamous LM Ql (Urine sed)Ordered By: Froy Cameron on 07-04-2024 Epithelial cells.squamous LM.HPF (Urine sed) [#/Area] 0 /[HPF] 5-10 [facility] Erythrocyte distribution wid th ratioOrdered By: Froy Cameron on 07-04-2024 Erythrocyte distribution width (RBC) [Ratio] 13.4 % 11.6-14.6 [facility] Erythrocyte distribution wid th standard deviationOrdered By: Froy Cameron on 07-04-2024 Erythrocyte distribution width (RBC) [Entitic vol] 48.0 fL High 35.1-43.9 [facility] Erythrocyte distribution width (RBC) [Ratio] 48.0 fl High 35.1-43.9 [facility] Estimation of creatinine wilmer aranceOrdered By: Froy Cameron on 07-04-2024 Estimated Creatinine Clearance Calc 61.64 ml/min 50-250 [facility] GFR/1.73 sq M.predicted kai g non-blacks MDRD (S/P/Bld) [Vol rate/Area]Ordered By: Froy Cameron on 07-04-2024 Estimated GFR (MDRD) Non-Af Amer 77 >60 [facility] Comment on above: mL/min/1.73m2 CKD-EP I Creatinine Equation (2020) Glomerular filtration rate ( GFR) estimation/1.73 sq m using serum, plasma, or whole bOrdered By: Froy Cameron on 07-04-2024 GFR/1.73 sq M.predicted among non-blacks MDRD (S/P/Bld) [Vol rate/Area] 77 mL/min/{1.73_m2} >60 [facility] Comment on above: mL/min/1.73m2 CKD-EP I Creatinine Equation (2020) Glucose Ql (U)Ordered By: Miracle Cameron on 07-04-2024 Urine Glucose (UA) Normal mg/dl Normal [facility] Hematocrit Auto (Bld) [Volum e fraction]Ordered By: Froy Cameron on 07-04-2024 Hematocrit (Bld) [Volume fraction] 36.9 % Low 37-47 [facility] Hemoglobin measurementOrdere d By: Froy Cameron on 07-04-2024 Hemoglobin (Bld) [Mass/Vol] 12.3 g/dL 12.0-15.0 [facility] - [employer] Immature granulocytes/100 WB C Auto (Bld)Ordered By: Froy Cameron on 07-04-2024 Immature granulocytes/100 WBC (Bld) 0.400 % 0.0-0.9 [facility] Comment on above: IG% - Immature Granu locytes (promyelocytes, myelocytes and metamyelocytes) > 1% indicates that a LEFT SHIFT is Present. Influenza virus A and B and SARS-CoV-2 (COVID-19) and Respiratory syncytial virus RNAOrdered By: Froy Cameron on 07-04-2024 SARS-CoV-2 (COVID-19) RNA LEONA+probe Ql (Unsp spec) [facility] Ketones Test strip Ql (U)Ord ered By: Froy Cameron on 07-04-2024 Ketones Ql (U) Negative Negative [facility] Laboratory - Chemistry and C hemistry - challengeOrdered By: Froy Cameron on 07-04-2024 AST [Catalytic activity/Vol] 21 U/L <32 [facility] Lymphocytes Auto (Unsp spec) [#/Vol]Ordered By: Froy Cameron on 07-04-2024 Lymphocytes (Bld) [#/Vol] 1.95 10*3/uL 0.83-4.51 [facility] Lymphocytes/100 WBC Auto (Un sp spec)Ordered By: Froy Cameron on 07-04-2024 Lymphocytes/100 WBC (Bld) 21.2 % 19-41 [facility] M100.678on 07-04-2024 M100.678 SARS-CoV-2 (COVID 19 ) Negative INFLUENZA A Negative INFLUENZA B Negative RSV PCR Negative Normal [facility] Comment on above: Performed By: #### M 100.678 ####[facility] [id number] [place], [place], [id number] MCV (mean corpuscular volume ) determinationOrdered By: Froy Cameron on 07-04-2024 MCV (RBC) [Entitic vol] 97.6 fL 81-99 [facility] Mean corpuscular hemoglobin (MCH) determinationOrdered By: Froy Cameron on 07-04-2024 MCH (RBC) [Entitic mass] 32.5 pg High 27.0-32.0 [facility] Mean corpuscular hemoglobin concentration (MCHC) determinationOrdered By: Froy Cameron on 07-04-2024 MCHC (RBC) [Mass/Vol] 33.3 g/dL 32-36 [facility] Mean platelet volume determi nationOrdered By: Froy Cameron on 07-04-2024 Platelet mean volume (Bld) [Entitic vol] 11.8 fL 6.2-12.0 [facility] Microscopic analysis of urin e for red blood cells (RBC)Ordered By: Froy Cameron on 07-04-2024 Microscopic analysis of urine for red blood cells (RBC) 0 SEEN /hpf 0-5 [facility] Urine RBC 0 SEEN /hpf 0-5 [facility] Monocyte percentageOrdered B y: Froy Cameron on 07-04-2024 Monocytes/100 WBC (Bld) 8.9 % 0-10 W [facility] Mucus LM Ql (Urine sed)Order ed By: Froy Cameron on 07-04-2024 Mucus Ql (Urine sed) 0 SEEN /hpf [facility] Neutrophil percentageOrdered By: Froy Cameron on 07-04-2024 Neutrophils/100 WBC (Bld) 65.0 % 47-70 [facility] Nitrite Test strip Ql (U)Ord ered By: Froy Cameron on 07-04-2024 Nitrite Ql (U) Negative Negative [facility] Nucleated red blood cell per centageOrdered By: Froy Cameron on 07-04-2024 Nucleated RBC/100 WBC (Bld) [Ratio] 0 % 0-5 [facility] Platelet countOrdered By: Miracle Cameron on 07-04-2024 Platelets (Bld) [#/Vol] 236 10*3/uL 150-450 [facility] Potassium (Unsp spec) [Mass/ Vol]Ordered By: Froy Cameron on 07-04-2024 Potassium [Moles/Vol] 4.0 mmol/L 3.3-5.1 [facility] Potassium measurement (mass/ volume)Ordered By: Froy Cameron on 07-04-2024 Potassium (Unsp spec) [Mass/Vol] 4.0 mmol/L 3.3-5.1 [facility] Protein Test strip Ql (U)Ord ered By: Froy Cameron on 07-04-2024 Protein Ql (U) Negative Negative [facility] RBC Auto (Bld) [#/Vol]Ordere d By: Froy Cameron on 07-04-2024 RBC (Bld) [#/Vol] 3.78 10*6/uL Low 4.2-5.4 [facility] Serum creatinine measurement (mass/volume)Ordered By: Froy Cameron on 07-04-2024 Creatinine [Mass/Vol] 0.79 mg/dL 0.70-1.20 [facility] Serum globulin measurementOr dered By: Froy Cameron on 07-04-2024 Globulin (S) [Mass/Vol] 2.9 g/dL 2.2-4.2 W [facility] Serum glucose measurement (m ass/volume)Ordered By: Froy Cameron on 07-04-2024 Glucose [Mass/Vol] 98 mg/dL 70-99 [facility] Serum or plasma alanine kaur otransferase (ALT) measurementOrdered By: Froy Cameron on 07-04-2024 ALT [Catalytic activity/Vol] 12 U/L <35 [facility] Serum or plasma albumin rajni urement (mass/volume)Ordered By: Froy Cameron 07-04-2024 Albumin [Mass/Vol] 4.0 g/dL 3.4-4.8 [facility] Serum or plasma albumin/glob ulin mass ratioOrdered By: Froy Cameron 07-04-2024 Albumin/Globulin [Mass ratio] 1.4 {ratio} 0.9-2.4 [facility] Serum or plasma alkaline dedra sphatase measurementOrdered By: Froy Cameron 07-04-2024 ALP [Catalytic activity/Vol] 82 U/L 35-104 [facility] Serum or plasma calcium rajni urement (mass/volume)Ordered By: Froy Cameron on 07-04-2024 Calcium [Mass/Vol] 8.6 mg/dL 7.6-11.0 [facility] Serum or plasma urea nitroge n measurement (mass/volume)Ordered By: Froy Cameron 07-04-2024 Urea nitrogen [Mass/Vol] 16 mg/dL 4-19 [facility] Sodium levelOrdered By: Froy Lundbergalexandria on 07-04-2024 Sodium [Moles/Vol] 139 mmol/L 133-145 [facility] Squamous epithelial cells de tection in urine sediment by light microscopyOrdered By: Froy Lundbergalexandria on 07-04-2024 Epithelial cells.squamous LM Ql (Urine sed) 0 SEEN /hpf 5-10 [facility] TSH DL <= 0.005 mIU/L QnOrde red By: Froy Cameron on 07-04-2024 Thyroid Stimulating Hormone (TSH) 0.164 uIU/mL Low 0.300-4.200 [facility] TSH Qn 0.164 uIU/mL Low 0.300-4.200 [facility] Thyroid Stim Hormone (TSH)on 07-04-2024 TSH 0.164 uIU/mL Low 0.300-4.200 [facility] Comment on above: Performed By: #### L 501.9520, L500.4050, L100.0100 #### [facility] Laboratory [address] [facility] [address] Total proteinOrdered By: Zeenat Cameron on 07-04-2024 Protein [Mass/Vol] 6.9 g/dL 5.9-8.4 [facility] Urinalysis, Completeon 07-04 AMORPHOUS 2+ PHOS Normal [facility] Comment on above: Order Comment: COLLE CTOR TO SPECIFY Performed By: #### L 400.0001 ####[facility] [id number] [place], [address] RBC 0 SEEN Normal 0-5 [facility] Comment on above: Order Comment: COLLE CTOR TO SPECIFY Performed By: #### L 400.0001 ####[facility] [id number] [place], [address] WBC 0-5 SEEN Normal 0-5 [facility] Comment on above: Order Comment: COLLE CTOR TO SPECIFY Performed By: #### L 400.0001 ####[facility] [id number] [place], [place], [id number] BACTERIA 0 SEEN Normal None Seen [facility] Comment on above: Order Comment: FER CTOR TO SPECIFY Performed By: #### L 400.0001 ####[facility] [id number] [place], [address] EPI,SQUAMOUS 0 SEEN Normal 5-10 [facility] Comment on above: Order Comment: FER CTOR TO SPECIFY Performed By: #### L 400.0001 ####[facility] [address] [place], [address] Mucus Ql (Urine sed) 0 SEEN Normal [facility] Comment on above: Order Comment: FER CTOR TO SPECIFY Performed By: #### L 400.0001 ####[facility] [id number] [place], [place], [id number] Urine blood detectionOrdered By: Froy Cameron on 07-04-2024 Urine Occult Blood Negative Negative [facility] Urine clarityOrdered By: Zeenat Cameron on 07-04-2024 Clarity (U) Clear Clear [facility] Urine color determinationOrd ered By: Froy Cameron on 07-04-2024 Color (U) Straw Yellow [facility] Urine glucose detectionOrder ed By: Froy Cameron on 07-04-2024 Glucose Ql (U) Normal mg/dl Normal [facility] Urine leukocyte esterase det ection by dipstickOrdered By: Froy Cameron on 07-04-2024 Leukocyte esterase Test strip Ql (U) Negative Negative [facility] Urine pHOrdered By: Froy gonzalez on 07-04-2024 pH (U) 8.0 [pH] 5.0 - 8.0 [facility] Urine sediment bacteria coun t by microscopy (number/high power field)Ordered By: Froy Cameron on 07-04-2024 Bacteria LM.HPF (Urine sed) [#/Area] 0 /[HPF] None Seen [facility] Urine specific gravity measu rementOrdered By: Froy Cameron on 07-04-2024 Specific gravity (U) [Rel density] 1.010 1.002-1.030 [facility] Urine urobilinogen measureme ntOrdered By: Froy Lundbergalexandria on 07-04-2024 Urobilinogen Ql (U) Normal mg/dl Normal [facility] Urobilinogen Ql (U)Ordered B y: Froy Cameron on 07-04-2024 Urine Urobilinogen Normal mg/dl Normal [facility] White blood cell (WBC) count Ordered By: Froy Lundbergalexandria on 07-04-2024 WBC (Bld) [#/Vol] 9.2 10*3/uL 4.4-11.0 [facility] White blood cell countOrdere d By: Froy Lundbergalexandria on 07-04-2024 Urine WBC 0-5 SEEN /hpf 0-5 [facility] White blood cell count 0-5 SEEN /hpf 0-5 [facility] Chest PA and Lateralon 06-04 Chest PA and Lateral [facility] [address] [place], [place] [address] Chest PA and Lateral MR#: [id number] Acct: [id number] Name: AIDEN FIELDS Rep #: [id number] : 1945 F 78 From: [place] [facility] PCP: Dr. Erica Richardson DO Status: REG CLI Study: Chest PA and Lateral Date of Exam: 06/04/24 Exam# [id number] Ordering Dr: Erica Richardson DO PROCEDURE: CHEST [...] noted. No evidence of cardiomegaly. Reading Location: [address] CC: Dr. Erica Richardson DO Temperature Regulator: Signed Normal [facility] Urine Cultureon 05-29-2024 [facility]RC Enterobacter cloacae complex Durant Count 25,000-50,000 Enterobacter cloacae complex: REACTION Cefepime Islt BENJAMIN <=0.12 Ciprofloxacin Islt BENJAMIN <=0.06 S Gentamicin Islt BENJAMIN <=1 S levoFLOXacin Islt BENJAMIN <=0.12 S Meropenem Islt BENJAMIN <=0.25 S Nitrofurantoin Islt BENJAMIN 32 S Pip+Tazo Islt BENJAMIN <=4 S TMP SMX Islt BENJAMIN >=320 R Normal [facility] Comment on above: Performed By: #### M 100.2200 #### [facility] Laboratory [address] [place], [address] Absolute lymphocyte countOrd ered By: rEica Richardson on 05-27-2024 Lymphocytes Auto (Unsp spec) [#/Vol] 1.94 10*3/uL 0.83-4.51 [facility] Absolute neutrophil countOrd ered By: Erica Richardson on 05-27-2024 Neutrophils (Bld) [#/Vol] 5.9 10*3/uL 2.0-7.7 [facility] Albumin to globulin ratioOrd ered By: Erica Richardson on 05-27-2024 Albumin/Globulin [Mass ratio] 0.9 {ratio} 0.9-2.4 [facility] Automated lymphocyte count a s percentage of total leukocytesOrdered By: Erica Richardson on 05-27-2024 Lymphocytes/100 WBC Auto (Unsp spec) 21.2 % 19-41 [facility] Basophil percentageOrdered B y: Erica Richardson on 05-27-2024 Basophils/100 WBC (Bld) 0.8 % 0-1 W [facility] Bilirubin, totalOrdered By: Erica Richardson on 05-27-2024 Bilirubin [Mass/Vol] 0.60 mg/dL 0.20-1.00 [facility] Comment on above: For patients on eltr ombopag therapy, use of Dimension [place] TBIL is not recommended. Blood urea nitrogen (BUN)/cr eatinine ratioOrdered By: Erica Richardson on 05-27-2024 Urea nitrogen/Creatinine [Mass ratio] 15.1 mg/mg 10-20 [facility] C-reactive protein measureme nt by high sensitivity methodOrdered By: Erica Richardson on 05-27-2024 C-Reactive Protein Extended Range 6.23 mg/L High 0.0-3.0 [facility] Comment on above: C-Reactive Protein ( CRP) provides useful information for thediagnosis, therapy and monitoring of inflammatory processesand associated diseases. For the evaluation of Relative Riskfor Cardiovascular Disease, a High Sensitivity CRP (HSCRP)should be ordered. C-reactive protein measurement by high sensitivity method 6.23 mg/L High 0.0-3.0 [facility] Comment on above: C-Reactive Protein ( CRP) provides useful information for thediagnosis, therapy and monitoring of inflammatory processesand associated diseases. For the evaluation of Relative Riskfor Cardiovascular Disease, a High Sensitivity CRP (HSCRP)should be ordered. CBC W/Diff, Automatedon Absolute Lymph 1.94 X10 3/uL Normal 0.83-4.51 [facility] Comment on above: Performed By: #### M 100.2200 #### [facility] Laboratory [address] [place], [address] Absolute Neut 5.9 X10 3/uL Normal 2.0-7.7 [facility] Comment on above: Performed By: #### M 100.2200 #### [facility] Laboratory [address] [place], [address] Basophils/100 WBC (Bld) 0.8 % Normal 0-1 W [facility] Comment on above: Performed By: #### M 100.2200 #### [facility] Laboratory [address] [place], [address] Eosinophils/100 WBC (Bld) 3.8 % Normal 0-5 [facility] Comment on above: Performed By: #### M 100.2200 #### [facility] Laboratory [address] [place], [address] Erythrocyte distribution width (RBC) [Ratio] 14.0 % Normal 11.6-14.6 [facility] Comment on above: Performed By: #### M 100.2200 #### [facility] Laboratory [address] [place], [address] Hematocrit (Bld) [Volume fraction] 39.2 % Normal 37-47 [facility] Comment on above: Performed By: #### M 100.2200 #### [facility] Laboratory [address] [place], [address] Hemoglobin (Bld) [Mass/Vol] 12.6 g/dL Normal 12.0-15.0 [facility] Comment on above: Performed By: #### M 100.2200 #### [facility] Laboratory [address] [place], [address] IG% 0.300 Normal 0.0-0.9 [facility] Comment on above: Result Comment: IG% - Immature Granulocytes (promyelocytes, myelocytes and metamyelocytes) > 1% indicates that a LEFT SHIFT is Present. Performed By: #### M 100.2200 #### [facility] Laboratory [address] [place], [address] Lymphocytes/100 WBC (Bld) 21.2 % Normal 19-41 [facility] Comment on above: Performed By: #### M 100.2200 #### [facility] Laboratory [address] [place], [address] MCH (RBC) [Entitic mass] 32.0 pg Normal 27.0-32.0 [facility] Comment on above: Performed By: #### M 100.2200 #### [facility] Laboratory [address] [place], [address] MCHC (RBC) [Mass/Vol] 32.1 g/dL Normal 32-36 [facility] Comment on above: Performed By: #### M 100.2200 #### [facility] Laboratory [address] [place], [address] MCV (RBC) [Entitic vol] 99.5 fL High 81-99 W [facility] Comment on above: Performed By: #### M 100.2200 #### [facility] Laboratory [address] [place], [address] Monocytes/100 WBC (Bld) 9.0 % Normal 0-10 [facility] Comment on above: Performed By: #### M 100.2200 #### [facility] Laboratory [address] [place], [address] Neutrophils/100 WBC (Bld) 64.9 % Normal 47-70 [facility] Comment on above: Performed By: #### M 100.2200 #### [facility] Laboratory [address] [place], [address] Nucleated RBC (Bld) [#/Vol] 0 10*3/uL Normal 0-5 [facility] Comment on above: Performed By: #### M 100.2200 #### [facility] Laboratory [address] [place], [address] Platelet mean volume (Bld) [Entitic vol] 12.7 fL High 6.2-12.0 [facility] Comment on above: Performed By: #### M 100.2200 #### [facility] Laboratory [address] [place], [address] Platelets (Bld) [#/Vol] 239 10*3/uL Normal 150-450 [facility] Comment on above: Performed By: #### M 100.2200 #### [facility] Laboratory [address] [place], [address] RBC (Bld) [#/Vol] 3.94 10*6/uL Low 4.2-5.4 [facility] Comment on above: Performed By: #### M 100.2200 #### [facility] Laboratory [address] [place], [address] RDW SD 51.3 fl High 35.1-43.9 [facility] Comment on above: Performed By: #### M 100.2200 #### [facility] Laboratory [address] [place], [place], [phone] ([phone] WBC (Bld) [#/Vol] 9.1 10*3/uL Normal 4.4-11.0 [facility] Comment on above: Performed By: #### M 100.2200 #### [facility] Laboratory [address] [place], [address] CRPon 05-27-2024 C-REACTIVE PROT 6.23 mg/L High 0.0-3.0 [facility] Comment on above: Result Comment: C-Re active Protein (CRP) provides useful information for the diagnosis, therapy and monitoring of inflammatory processes and associated diseases. For the evaluation of Relative Risk for Cardiovascular Disease, a High Sensitivity CRP (HSCRP) should be ordered. Performed By: #### M 100.2200 #### [facility] Laboratory [address] [place], [place], [phone] Carbon dioxide measurementOr dered By: Erica Richardson on 05-27-2024 CO2 [Moles/Vol] 26.0 mmol/L 21.0-32.0 [facility] Chloride measurementOrdered By: Erica Richardson on 05-27-2024 Chloride [Moles/Vol] 99 mmol/L 98-107 [facility] Comprehensive Metabolic Prof ilon 05-27-2024 Albumin [Mass/Vol] 3.6 g/dL Normal 3.2-5.0 [facility] Comment on above: Performed By: #### M 100.2200 #### [facility] Laboratory [address] [place], [place], [phone] (517) Albumin/Globulin [Mass ratio] 0.9 {ratio} Normal 0.9-2.4 [facility] Comment on above: Performed By: #### M 100.2200 #### [facility] Laboratory [address] [place], [address] ALK P 90 U/L Normal 45-117 [facility] Comment on above: Performed By: #### M 100.2200 #### [facility] Laboratory [address] [place], [address] ALT [Catalytic activity/Vol] 20 U/L Normal 13-56 [facility] Comment on above: Performed By: #### M 100.2200 #### [facility] Laboratory [address] [place], [address] AST [Catalytic activity/Vol] 17 U/L Normal 15-37 [facility] Comment on above: Performed By: #### M 100.2200 #### [facility] Laboratory [address] [place], [address] Bilirubin [Mass/Vol] 0.60 mg/dL Normal 0.20-1.00 [facility] Comment on above: Result Comment: For patients on eltrombopag therapy, use of Dimension [place] TBIL is not recommended. Performed By: #### M 100.2200 #### [facility] Laboratory [address] [place], [address] BUN/CRE 15.1 RATIO Normal 10-20 [facility] Comment on above: Performed By: #### M 100.2200 #### [facility] Laboratory [address] [place], [address] CA,Total 8.8 mg/dL Normal 8.5-10.1 [facility] Comment on above: Performed By: #### M 100.2200 #### [facility] Laboratory [address] [place], [address] Chloride [Moles/Vol] 99 mmol/L Normal 98-107 [facility] Comment on above: Performed By: #### M 100.2200 #### [facility] Laboratory [address] [place], [address] CO2 [Moles/Vol] 26.0 mmol/L Normal 21.0-32.0 [facility] Comment on above: Performed By: #### M 100.2200 #### [facility] Laboratory [address] [place], [address] Creatinine [Mass/Vol] 0.79 mg/dL Normal 0.55-1.02 [facility] Comment on above: Result Comment: The validity of the calculated GFR GFRAA in patients over 70 years has not been determined. Clinical correlation is essential. Performed By: #### M 100.2200 #### [facility] Laboratory [address] [place], [address] EST GFR - AA 90 mL/min Normal >60 [facility] Comment on above: Result Comment: Afri can Afghan GFR Calc Performed By: #### M 100.2200 #### [facility] Laboratory [address] [place], [address] GAP 11 Normal 5-15 [facility] Comment on above: Performed By: #### M 100.2200 #### [facility] Laboratory [address] [place], [address] GFR/1.73 sq M.predicted among non-blacks MDRD (S/P/Bld) [Vol rate/Area] 75 mL/min/{1.73_m2} Normal >60 [facility] Comment on above: Result Comment: Non- GFR Calc Performed By: #### M 100.2200 #### [facility] Laboratory [address] [place], [address] Globulin (S) [Mass/Vol] 4.1 g/dL Normal 2.2-4.2 [facility] Comment on above: Performed By: #### M 100.2200 #### [facility] Laboratory [address] [place], [address] Glucose [Mass/Vol] 87 mg/dL Normal 74-106 [facility] Comment on above: Performed By: #### M 100.2200 #### [facility] Laboratory [address] [place], [address] Potassium [Moles/Vol] 3.9 mmol/L Normal 3.5-5.1 [facility] Comment on above: Performed By: #### M 100.2200 #### [facility] Laboratory [address] [place], [address] Sodium [Moles/Vol] 136 mmol/L Normal 136-145 [facility] [facility] Comment on above: Performed By: #### M 100.2200 #### [facility] Laboratory [address] [place], [address] T PROT 7.7 g/dL Normal 6.4-8.2 [facility] Comment on above: Performed By: #### M 100.2200 #### [facility] Laboratory [address] [place], [address] Urea nitrogen [Mass/Vol] 12 mg/dL Normal 7-18 [facility] Comment on above: Performed By: #### M 100.2200 #### [facility] Laboratory [address] [place], [address] Direct serum free thyroxine (FT4) measurementOrdered By: Erica Richardson on 05-27-2024 Free T4 [Mass/Vol] 1.14 ng/dL 0.76-1.46 [facility] Eosinophil percentageOrdered By: Erica Richardson on 05-27-2024 Eosinophils/100 WBC (Bld) 3.8 % 0-5 [facility] Erythrocyte Sed Rateon 05-27 SED RATE 35 mm/hr High 0-30 [facility] Comment on above: Performed By: #### M 100.2200 #### [facility] Laboratory [address] [place], [address] Erythrocyte distribution wid th ratioOrdered By: Erica Richardson on 05-27-2024 Erythrocyte distribution width (RBC) [Ratio] 14.0 % 11.6-14.6 [facility] Erythrocyte distribution wid th standard deviationOrdered By: Erica Richardson on 05-27-2024 Erythrocyte distribution width (RBC) [Entitic vol] 51.3 fL High 35.1-43.9 [facility] Erythrocyte distribution width (RBC) [Ratio] 51.3 fl High 35.1-43.9 [facility] Erythrocyte sedimentation ra teOrdered By: Erica Richardson on 05-27-2024 ESR (Bld) [Velocity] 35 mm/h High 0-30 [facility] Estimated glomerular filtrat ion rate (GFR) AmericanOrdered By: Erica Richardson on 05-27-2024 Estimated GFR (MDRD) Amer 90 mL/min >60 [facility] Comment on above: GFR Calc Free T3on 05-27-2024 Free T3 [Mass/Vol] 2.0 pg/mL Low 2.18-3.98 [facility] Comment on above: Performed By: #### M 100.2200 #### [facility] Laboratory [address] [place] [address], [address] Free [id number] By: Erica Moeller s on 05-27-2024 Free T3 [Mass/Vol] 2.0 pg/mL Low 2.18-3.98 [facility] Free Triiodothyronine (T3) pg/dL 2.0 pg/mL Low 2.18-3.98 [facility] Glomerular filtration rate ( GFR) estimationOrdered By: Erica Richardson on 05-27-2024 Estimated GFR (MDRD) Non-Af Amer 75 mL/min >60 [facility] Comment on above: Non- GFR Calc GFR/1.73 sq M.predicted among non-blacks MDRD (S/P/Bld) [Vol rate/Area] 75 mL/min/{1.73_m2} >60 [facility] Comment on above: Non- GFR Calc Glucose measurementOrdered B y: Erica Richardson on 05-27-2024 Glucose [Mass/Vol] 87 mg/dL 74-106 [facility] Hematocrit Auto (Bld) [Volum e fraction]Ordered By: Erica Richardson on 05-27-2024 Hematocrit (Bld) [Volume fraction] 39.2 % 37-47 [facility] Hemoglobin measurementOrdere d By: Erica Richardson on 05-27-2024 Hemoglobin (Bld) [Mass/Vol] 12.6 g/dL 12.0-15.0 [facility] Immature granulocytes/100 WB C Auto (Bld)Ordered By: Erica Richardson on 05-27-2024 Immature granulocytes/100 WBC (Bld) 0.300 % 0.0-0.9 [facility] Comment on above: IG% - Immature Granu locytes (promyelocytes, myelocytes and metamyelocytes) > 1% indicates that a LEFT SHIFT is Present. Laboratory - Chemistry and C hemistry - challengeOrdered By: Erica Richardson on 05-27-2024 AST [Catalytic activity/Vol] 17 U/L 15-37 [facility] Lymphocytes Auto (Unsp spec) [#/Vol]Ordered By: Erica Richardson on 05-27-2024 Lymphocytes (Bld) [#/Vol] 1.94 10*3/uL 0.83-4.51 [facility] Lymphocytes/100 WBC Auto (Un sp spec)Ordered By: Erica Richardson on 05-27-2024 Lymphocytes/100 WBC (Bld) 21.2 % 19-41 [facility] MCV (mean corpuscular volume ) determinationOrdered By: Erica Richardson on 05-27-2024 MCV (RBC) [Entitic vol] 99.5 fL High 81-99 [facility] Mean corpuscular hemoglobin (MCH) determinationOrdered By: Erica Richardson on 05-27-2024 MCH (RBC) [Entitic mass] 32.0 pg 27.0-32.0 [facility] Mean corpuscular hemoglobin concentration (MCHC) determinationOrdered By: Erica Richardson on 05-27-2024 MCHC (RBC) [Mass/Vol] 32.1 g/dL 32-36 [facility] Mean platelet volume determi nationOrdered By: Erica Richardson on 05-27-2024 Platelet mean volume (Bld) [Entitic vol] 12.7 fL High 6.2-12.0 [facility] Monocyte percentageOrdered B y: Erica Richardson on 05-27-2024 Monocytes/100 WBC (Bld) 9.0 % 0-10 [facility] Neutrophil percentageOrdered By: Erica Richardson on 05-27-2024 Neutrophils/100 WBC (Bld) 64.9 % 47-70 [facility] Nucleated red blood cell per centageOrdered By: Erica Richardson on 05-27-2024 Nucleated RBC/100 WBC (Bld) [Ratio] 0 % 0-5 [facility] Platelet countOrdered By: Anny Richardson on 05-27-2024 Platelets (Bld) [#/Vol] 239 10*3/uL 150-450 [facility] Potassium measurementOrdered By: Erica Richardson on 05-27-2024 Potassium [Moles/Vol] 3.9 mmol/L 3.5-5.1 [facility] RBC Auto (Bld) [#/Vol]Ordere d By: Erica Richardson on 05-27-2024 RBC (Bld) [#/Vol] 3.94 10*6/uL Low 4.2-5.4 [facility] Serum anion gap measurementO rdered By: Erica Richardson on 05-27-2024 Anion gap [Moles/Vol] 11 mmol/L 5-15 [facility] Serum globulin measurementOr dered By: Erica Richardson on 05-27-2024 Globulin (S) [Mass/Vol] 4.1 g/dL 2.2-4.2 [facility] Serum or plasma alanine kaur otransferase (ALT) measurementOrdered By: Erica Richardson on 05-27-2024 ALT [Catalytic activity/Vol] 20 U/L 13-56 [facility] Serum or plasma albumin rajni urement (mass/volume)Ordered By: Erica Richardson on 05-27-2024 Albumin [Mass/Vol] 3.6 g/dL 3.2-5.0 [facility] Serum or plasma alkaline dedra sphatase measurementOrdered By: Erica Richardson on 05-27-2024 ALP [Catalytic activity/Vol] 90 U/L 45-117 [facility] Serum or plasma calcium rajni urement (mass/volume)Ordered By: Erica Richardson on 05-27-2024 Calcium [Mass/Vol] 8.8 mg/dL 8.5-10.1 [facility] Serum or plasma creatinine m easurement (mass/volume)Ordered By: Erica Richardson on 05-27-2024 Creatinine [Mass/Vol] 0.79 mg/dL 0.55-1.02 [facility] Comment on above: The validity of the calculated GFR & GFRAA in patients over 70 years has not been determined. Clinical correlation is essential. Serum or plasma thyroid stim ulating hormone (TSH) measurement (units/volume)Ordered By: Erica Richardson on 05-27-2024 TSH Qn 2.650 uIU/mL 0.358-3.740 [facility] Serum or plasma urea nitroge n measurement (mass/volume)Ordered By: Erica Richardson on 05-27-2024 Urea nitrogen [Mass/Vol] 12 mg/dL 7-18 [facility] Sodium levelOrdered By: Erica Richardson on 05-27-2024 Sodium [Moles/Vol] 136 mmol/L 136-145 [facility] T4 Free Directon 05-27-2024 T4 FREE DIRECT 1.14 ng/dL Normal 0.76-1.46 [facility] Comment on above: Performed By: #### M 100.2200 #### [facility] Laboratory [address] [place], [place], [phone] TSH QnOrdered By: Erica Richardson on 05-27-2024 Thyroid Stimulating Hormone (TSH) 2.650 uIU/mL 0.358-3.740 [facility] Thyroid Stim Hormone (TSH)on 05-27-2024 TSH 2.650 uIU/mL Normal 0.358-3.740 [facility] Comment on above: Performed By: #### M 100.2200 #### [facility] Laboratory [address] [place], [place], [phone] Total proteinOrdered By: Elena Richardson on 05-27-2024 Protein [Mass/Vol] 7.7 g/dL 6.4-8.2 [facility] Urine cultureOrdered By: Elena Richardson on 05-27-2024 Bacteria identified Cx Nom (U) Enterobacter cloacae complex Abnormal [facility] White blood cell (WBC) count Ordered By: Erica Richardson on 05-27-2024 WBC (Bld) [#/Vol] 9.1 10*3/uL 4.4-11.0 [facility] Urine Cultureon 04-26-2024 URC Presumptive E. coli Durant Count >100,000 Presumptive E. coli: REACTION Ampicillin [...] TMP SMX Islt BENJAMIN <=20 S Normal [facility] Comment on above: Performed By: #### M 100.2200 ####[facility] [address] [place], [address] Urine cultureOrdered By: Elena Richardson on 04-24-2024 Bacteria identified Cx Nom (U) Presumptive E. coli Abnormal [facility] 12 Lead EKGon 03-02-2024 12 Lead EKG [facility] Cardiovascular Services [address] [place] [address] 12 Lead EKG 03/02/24 2201 MR#: [id number] Acct: [id number] Name: LIVEAIDEN PEGUERO Consuelo Rep #: [id number] : 1945 78 From: Jose Hamilton MD [...] ECG Confirmed by ANIKA CRAMER, JOSE ([id number]), editor continuity and script JUVENCIO MARIA ([id number]) on 03/03/2024 6:42:17 AM Referred By: Confirmed By: JOSE HAMILTON MD 03/03/24 0642 Date Jose Hamilton MD CC: Dr. Cheikh Ybarra DO; Dr. Erica Richardson DO Signed Normal [facility] Emergency Department Summary on 03-02-2024 Emergency Department Summary [facility] Medical Records Department [address] [place] [address] Emergency Department Summary 03/02/24 MR#: [id number] Acct: [id number] Name: AIDEN FIELDS Rep #: [id number] : 1945 78 From: Cheikh Ybarra DO [...] any difficulty ambulating around the house today. [facility] Medical History Anxiety and depression Hypoparathyroidism after [...] Neosporin Allergy Unknown Unknown Verified 03/02/24 21:55 ([id number])) neomycin (From Neosporin Allergy Unknown Unknown Verified 03/02/24 21:55 ([id number])) polymyxin B (From Neosporin Allergy Unknown Unknown Verified 03/02/24 21:55 (sww-cpt-rpqif)) Antihistamines - Alkylamine Allergy PT UNSURE Verified [...] per d (more content not included)... Normal [facility] Emergency Department Summary on 12-18-2023 Emergency Department Summary [facility] Medical Records Department [address] [place] [address] Emergency Department Summary 12/18/23 MR#: [id number] Acct: [id number] Name: AIDEN FIELDS Consuelo Rep #: [id number] : 1945 78 From: Jorge Cardona MD [...] similar symptoms: No Recent Ill[facility] : [facility] Medical History Anxiety and depression Hypoparathyroidism after [...] Neosporin Allergy Unknown Unknown Verified 12/18/23 19:57 ([id number])) neomycin (From Neosporin Allergy Unknown Unknown Verified 12/18/23 19:57 (dhu-dyx-gdxrx)) polymyxin B (From Neosporin Allergy Unknown Unknown Verified 12/18/23 19:57 (xwk-ljm-vligo)) Antihistamines - Alkylamine Allergy PT UNSURE Verified 12/18/23 19:57 OF REACTION diphenhydramine (From Allergy PT UNSURE Verified 12/18/23 19:57 Benadryl) OF REACTION Family History Unknown Thyroid disorder Cancer High (more content not included)... Normal [facility] ANTINUCLEAR ANTIBODIES DIREC Ton 12-13-2023 MASHA,DIRECT Negative Normal Negative [facility] Comment on above: Result Comment: Perf ormed at: [address] [id number] On Car Supervisor: Mendez Dominguez PhD, Phone: [phone] Performed By: #### L 501.6710, L101.9900, L500.4050, L506.1000, L505.7010, L506.0400, L3100.5475, L100.0100, L501.94504, L4600.0100, L501.9520 ####[facility] [address] [place], [place], [phone] CCP IgG Antibodieson 024 CCP IgG Ab. 3 units Normal 0-19 [facility] Comment on above: Result Comment: Nega tive <20 Weak positive 20 - 39 Moderate positive 40 - 59 Strong positive >59 Performed at: [address] [id number] On Car Supervisor: Mendez Dominguez PhD, Phone: [phone] Performed By: #### L 501.6710, L101.9900, L500.4050, L506.1000, L505.7010, L506.0400, L3100.5475, L100.0100, L501.28641, L4600.0100, L501.9520 ####[facility] [address] [place], [place], [address] CBC W/Diff, Automatedon 11-21 Absolute Lymph 1.28 X10 3/uL Normal 0.83-4.51 [facility] Comment on above: Performed By: #### M 100.2200 #### [facility] Laboratory [address] [place], [address] Absolute Neut 9.6 X10 3/uL High 2.0-7.7 [facility] Comment on above: Performed By: #### M 100.2200 #### [facility] Laboratory [address] [place], [address] Basophils/100 WBC (Bld) 0.6 % Normal 0-1 [facility] Comment on above: Performed By: #### M 100.2200 #### [facility] Laboratory [address] [place], [address] Eosinophils/100 WBC (Bld) 2.9 % Normal 0-5 [facility] Comment on above: Performed By: #### M 100.2200 #### [facility] Laboratory [address] [place], [address] Erythrocyte distribution width (RBC) [Ratio] 13.2 % Normal 11.6-14.6 [facility] Comment on above: Performed By: #### M 100.2200 #### [facility] Laboratory [address] [place], [address] Hematocrit (Bld) [Volume fraction] 39.3 % Normal 37-47 [facility] Comment on above: Performed By: #### M 100.2200 #### [facility] Laboratory [address] [place], [address] Hemoglobin (Bld) [Mass/Vol] 12.4 g/dL Normal 12.0-15.0 [facility] Comment on above: Performed By: #### M 100.2200 #### [facility] Laboratory [address] [place], [address] IG% 0.200 Normal 0.0-0.9 [facility] Comment on above: Result Comment: IG% - Immature Granulocytes (promyelocytes, myelocytes and metamyelocytes) > 1% indicates that a LEFT SHIFT is Present. Performed By: #### M 100.2200 #### [facility] Laboratory [address] [place], [address] Lymphocytes/100 WBC (Bld) 10.5 % Low 19-41 [facility] Comment on above: Performed By: #### M 100.2200 #### [facility] Laboratory [address] [place], [address] MCH (RBC) [Entitic mass] 32.5 pg High 27.0-32.0 [facility] Comment on above: Performed By: #### M 100.2200 #### [facility] Laboratory [address] [place], [address] MCHC (RBC) [Mass/Vol] 31.6 g/dL Low 32-36 [facility] Comment on above: Performed By: #### M 100.2200 #### [facility] Laboratory [address] [place], [address] MCV (RBC) [Entitic vol] 102.9 fL High 81-99 [facility] Comment on above: Performed By: #### M 100.2200 #### [facility] Laboratory [address] [place], [address] Monocytes/100 WBC (Bld) 7.8 % Normal 0-10 [facility] Comment on above: Performed By: #### M 100.2200 #### [facility] Laboratory [address] [place], [address] Neutrophils/100 WBC (Bld) 78.0 % High 47-70 [facility] Comment on above: Performed By: #### M 100.2200 #### [facility] Laboratory [address] [place], [address] Nucleated RBC (Bld) [#/Vol] 0 10*3/uL Normal 0-5 [facility] Comment on above: Performed By: #### M 100.2200 #### [facility] Laboratory [address] [place], [address] Platelet mean volume (Bld) [Entitic vol] 13.1 fL High 6.2-12.0 [facility] Comment on above: Performed By: #### M 100.2200 #### [facility] Laboratory [address] [place], [address] Platelets (Bld) [#/Vol] 215 10*3/uL Normal 150-450 [facility] Comment on above: Performed By: #### M 100.2200 #### [facility] Laboratory [address] [place], [address] RBC (Bld) [#/Vol] 3.82 10*6/uL Low 4.2-5.4 [facility] Comment on above: Performed By: #### M 100.2200 #### [facility] Laboratory [address] [place], [address] RDW SD 49.6 fl High 35.1-43.9 [facility] Comment on above: Performed By: #### M 100.2200 #### [facility] Laboratory [address] [place], [address] WBC (Bld) [#/Vol] 12.2 10*3/uL High 4.4-11.0 [facility] Comment on above: Performed By: #### M 100.2200 #### [facility] Laboratory [address] [place], [address] CRPon 12-12-2023 C-REACTIVE PROT 40.10 mg/L High 0.0-3.0 [facility] Comment on above: Result Comment: C-Re active Protein (CRP) provides useful information for the diagnosis, therapy and monitoring of inflammatory processes and associated diseases. For the evaluation of Relative Risk for Cardiovascular Disease, a High Sensitivity CRP (HSCRP) should be ordered. Performed By: #### L 501.6710, L101.9900, L500.4050, L506.1000, L505.7010, L506.0400, L3100.5475, L100.0100, L501.43217, L4600.0100, L501.9520 ####[facility] [address] [place], [address] Comprehensive Metabolic Prof ilon 12-12-2023 Albumin [Mass/Vol] 3.8 g/dL Normal 3.2-5.0 [facility] Comment on above: Performed By: #### L 501.6710, L101.9900, L500.4050, L506.1000, L505.7010, L506.0400, L3100.5475, L100.0100, L501.93437, L4600.0100, L501.9520 ####[facility] [address] [place], [address] Albumin/Globulin [Mass ratio] 0.9 {ratio} Normal 0.9-2.4 [facility] Comment on above: Performed By: #### L 501.6710, L101.9900, L500.4050, L506.1000, L505.7010, L506.0400, L3100.5475, L100.0100, L501.34150, L4600.0100, L501.9520 ####[facility] [address] [place], [address] ALK P 90 U/L Normal 45-117 [facility] Comment on above: Performed By: #### L 501.6710, L101.9900, L500.4050, L506.1000, L505.7010, L506.0400, L3100.5475, L100.0100, L501.64141, L4600.0100, L501.9520 ####[facility] [address] [place], [address] ALT [Catalytic activity/Vol] 22 U/L Normal 13-56 [facility] Comment on above: Performed By: #### L 501.6710, L101.9900, L500.4050, L506.1000, L505.7010, L506.0400, L3100.5475, L100.0100, L501.52270, L4600.0100, L501.9520 ####[facility] [address] [place], [address] AST [Catalytic activity/Vol] 21 U/L Normal 15-37 [facility] Comment on above: Performed By: #### L 501.6710, L101.9900, L500.4050, L506.1000, L505.7010, L506.0400, L3100.5475, L100.0100, L501.77202, L4600.0100, L501.9520 ####[facility] [address] [place], [place], [phone]) Bilirubin [Mass/Vol] 0.90 mg/dL Normal 0.20-1.00 [facility] Comment on above: Result Comment: For patients on eltrombopag therapy, use of Dimension [place] TBIL is not recommended. Performed By: #### L 501.6710, L101.9900, L500.4050, L506.1000, L505.7010, L506.0400, L3100.5475, L100.0100, L501.46949, L4600.0100, L501.9520 ####[facility] [address] [place], [place], [phone](285) BUN/CRE 12.5 RATIO Normal 10-20 [facility] Comment on above: Performed By: #### L 501.6710, L101.9900, L500.4050, L506.1000, L505.7010, L506.0400, L3100.5475, L100.0100, L501.79118, L4600.0100, L501.9520 ####[facility] [address] [place], [place], [phone](582) CA,Total 9.1 mg/dL Normal 8.5-10.1 [facility] Comment on above: Performed By: #### L 501.6710, L101.9900, L500.4050, L506.1000, L505.7010, L506.0400, L3100.5475, L100.0100, L501.06434, L4600.0100, L501.9520 ####[facility] [address] [place], [address] Chloride [Moles/Vol] 103 mmol/L Normal 98-107 [facility] Comment on above: Performed By: #### L 501.6710, L101.9900, L500.4050, L506.1000, L505.7010, L506.0400, L3100.5475, L100.0100, L501.37497, L4600.0100, L501.9520 ####[facility] [address] [place], [place], [phone](002) CO2 [Moles/Vol] 30.0 mmol/L Normal 21.0-32.0 [facility] Comment on above: Performed By: #### L 501.6710, L101.9900, L500.4050, L506.1000, L505.7010, L506.0400, L3100.5475, L100.0100, L501.18538, L4600.0100, L501.9520 ####[facility] [address] [place], [place], [phone](833) Creatinine [Mass/Vol] 0.96 mg/dL Normal 0.55-1.02 [facility] Comment on above: Result Comment: The validity of the calculated GFR GFRAA in patients over 70 years has not been determined. Clinical correlation is essential. Performed By: #### L 501.6710, L101.9900, L500.4050, L506.1000, L505.7010, L506.0400, L3100.5475, L100.0100, L501.01098, L4600.0100, L501.9520 ####[facility] [address] [place], [place], [phone] EST GFR - AA 72 mL/min Normal >60 [facility] Comment on above: Result Comment: Afri can Afghan GFR Calc Performed By: #### L 501.6710, L101.9900, L500.4050, L506.1000, L505.7010, L506.0400, L3100.5475, L100.0100, L501.62872, L4600.0100, L501.9520 ####[facility] [address] [place], [place], [phone] GAP 7 Normal 5-15 [facility] Comment on above: Performed By: #### L 501.6710, L101.9900, L500.4050, L506.1000, L505.7010, L506.0400, L3100.5475, L100.0100, L501.30844, L4600.0100, L501.9520 ####[facility] [address] [place], [place], [phone] GFR/1.73 sq M.predicted among non-blacks MDRD (S/P/Bld) [Vol rate/Area] 60 mL/min/{1.73_m2} Normal >60 [facility] Comment on above: Result Comment: Non- GFR Calc Performed By: #### L 501.6710, L101.9900, L500.4050, L506.1000, L505.7010, L506.0400, L3100.5475, L100.0100, L501.56724, L4600.0100, L501.9520 ####[facility] [address] [place], [place], [phone] Globulin (S) [Mass/Vol] 4.2 g/dL Normal 2.2-4.2 [facility] Comment on above: Performed By: #### L 501.6710, L101.9900, L500.4050, L506.1000, L505.7010, L506.0400, L3100.5475, L100.0100, L501.01812, L4600.0100, L501.9520 ####[facility] [address] [place], [address] Glucose [Mass/Vol] 99 mg/dL Normal 74-106 [facility] Comment on above: Performed By: #### L 501.6710, L101.9900, L500.4050, L506.1000, L505.7010, L506.0400, L3100.5475, L100.0100, L501.67134, L4600.0100, L501.9520 ####[facility] [address] [place], [address] Potassium [Moles/Vol] 3.6 mmol/L Normal 3.5-5.1 [facility] Comment on above: Performed By: #### L 501.6710, L101.9900, L500.4050, L506.1000, L505.7010, L506.0400, L3100.5475, L100.0100, L501.17093, L4600.0100, L501.9520 ####[facility] [address] [place], [address] Sodium [Moles/Vol] 140 mmol/L Normal 136-145 [facility] Comment on above: Performed By: #### L 501.6710, L101.9900, L500.4050, L506.1000, L505.7010, L506.0400, L3100.5475, L100.0100, L501.77258, L4600.0100, L501.9520 ####[facility] [address] [place], [address] T PROT 8.0 g/dL Normal 6.4-8.2 [facility] Comment on above: Performed By: #### L 501.6710, L101.9900, L500.4050, L506.1000, L505.7010, L506.0400, L3100.5475, L100.0100, L501.21742, L4600.0100, L501.9520 ####[facility] [address] [place], [place], [phone] Urea nitrogen [Mass/Vol] 12 mg/dL Normal 7-18 [facility] Comment on above: Performed By: #### L 501.6710, L101.9900, L500.4050, L506.1000, L505.7010, L506.0400, L3100.5475, L100.0100, L501.23121, L4600.0100, L501.9520 ####[facility] [address] [place], [address] Erythrocyte Sed Rateon 12-11 SED RATE 12 mm/hr Normal 0-30 [facility] Comment on above: Performed By: #### M 100.2200 #### [facility] Laboratory [address] [place], [place], [phone] Free T3on 12-12-2023 Free T3 [Mass/Vol] 2.2 pg/mL Normal 2.18-3.98 [facility] Comment on above: Performed By: #### L 501.6710, L101.9900, L500.4050, L506.1000, L505.7010, L506.0400, L3100.5475, L100.0100, L501.17321, L4600.0100, L501.9520 ####[facility] [address] [place], [place], [phone] Rheumatoid Factoron 12-12-19 24 RHEUMATOID FAC < 10.0 Normal <15 [facility] Comment on above: Performed By: #### L 501.6710, L101.9900, L500.4050, L506.1000, L505.7010, L506.0400, L3100.5475, L100.0100, L501.88611, L4600.0100, L501.9520 ####[facility] [address] [place], [place], [phone] T4 Free Directon 12-12-2023 T4 FREE DIRECT 1.32 ng/dL Normal 0.76-1.46 [facility] Comment on above: Performed By: #### L 501.6710, L101.9900, L500.4050, L506.1000, L505.7010, L506.0400, L3100.5475, L100.0100, L501.34503, L4600.0100, L501.9520 ####[facility] [id number] [facility] [place], [place], [phone] Thyroid Stim Hormone (TSH)on 12-12-2023 TSH 1.710 uIU/mL Normal 0.358-3.740 [facility] Comment on above: Performed By: #### L 501.6710, L101.9900, L500.4050, L506.1000, L505.7010, L506.0400, L3100.5475, L100.0100, L501.44140, L4600.0100, L501.9520 ####[facility] [id number] [facility] [place], [place], [id number] Vitamin D,25 Hydroxyon 12-11 Vitamin D 25-OH 29.4 ng/mL Normal [facility] Comment on above: Result Comment: Ana min D 25(OH) Status Range Deficiency <20 ng/mL (50nmol/L) Insufficiency 20 - 30 ng/mL (50 - 75 nmol/L) Sufficiency 30 - 100 ng/mL (75 - 250 nmol/L) Toxicity >100 ng/mL (>250 nmol/L) Performed By: #### L 501.6710, L101.9900, L500.4050, L506.1000, L505.7010, L506.0400, L3100.5475, L100.0100, L501.32109, L4600.0100, L501.9520 ####[facility] [address] [place], [address] Urine Cultureon 10-12-2023 URC Proteus mirabilis Durant Count 50,000-80,000 Proteus mirabilis: REACTION Ampicillin Islt [...] TMP SMX Islt BENJAMIN <=20 S Normal [facility] Comment on above: Performed By: #### L 100.0100, L500.4050, M100.2200 #### [facility] Laboratory [address] [place], [address] CBC W/Diff, Automatedon 09-21 Absolute Lymph 2.05 X10 3/uL Normal 0.83-4.51 [facility] Comment on above: Performed By: #### L 100.0100, L500.4050, M100.2200 #### [facility] Laboratory [address] [place], [address] Absolute Neut 5.1 X10 3/uL Normal 2.0-7.7 [facility] Comment on above: Performed By: #### L 100.0100, L500.4050, M100.2200 #### [facility] Laboratory [address] [place], [address] Basophils/100 WBC (Bld) 0.9 % Normal 0-1 W [facility] Comment on above: Performed By: #### L 100.0100, L500.4050, M100.2200 #### [facility] Laboratory [address] [place], [address] Eosinophils/100 WBC (Bld) 5.5 % High 0-5 [facility] Comment on above: Performed By: #### L 100.0100, L500.4050, M100.2200 #### [facility] Laboratory [address] [place], [address] Erythrocyte distribution width (RBC) [Ratio] 13.1 % Normal 11.6-14.6 [facility] Comment on above: Performed By: #### L 100.0100, L500.4050, M100.2200 #### [facility] Laboratory [address] [place], [address] Hematocrit (Bld) [Volume fraction] 38.1 % Normal 37-47 [facility] Comment on above: Performed By: #### L 100.0100, L500.4050, M100.2200 #### [facility] Laboratory [address] [place], [address] Hemoglobin (Bld) [Mass/Vol] 12.2 g/dL Normal 12.0-15.0 [facility] Comment on above: Performed By: #### L 100.0100, L500.4050, M100.2200 #### [facility] Laboratory [address] [place], [address] IG% 0.500 Normal 0.0-0.9 [facility] Comment on above: Result Comment: IG% - Immature Granulocytes (promyelocytes, myelocytes and metamyelocytes) > 1% indicates that a LEFT SHIFT is Present. Performed By: #### L 100.0100, L500.4050, M100.2200 #### [facility] Laboratory [address] [place], [address] Lymphocytes/100 WBC (Bld) 24.2 % Normal 19-41 [facility] Comment on above: Performed By: #### L 100.0100, L500.4050, M100.2200 #### [facility] Laboratory [address] [place], [address] MCH (RBC) [Entitic mass] 32.3 pg High 27.0-32.0 [facility] Comment on above: Performed By: #### L 100.0100, L500.4050, M100.2200 #### [facility] Laboratory [address] [place], [address] MCHC (RBC) [Mass/Vol] 32.0 g/dL Normal 32-36 [facility] Comment on above: Performed By: #### L 100.0100, L500.4050, M100.2200 #### [facility] Laboratory [address] [place], [address] MCV (RBC) [Entitic vol] 100.8 fL High 81-99 [facility] Comment on above: Performed By: #### L 100.0100, L500.4050, M100.2200 #### [facility] Laboratory [address] [place], [address] Monocytes/100 WBC (Bld) 8.4 % Normal 0-10 [facility] Comment on above: Performed By: #### L 100.0100, L500.4050, M100.2200 #### [facility] Laboratory [address] [place], [address] Neutrophils/100 WBC (Bld) 60.5 % Normal 47-70 [facility] Comment on above: Performed By: #### L 100.0100, L500.4050, M100.2200 #### [facility] Laboratory [address] [place], [address] Nucleated RBC (Bld) [#/Vol] 0 10*3/uL Normal 0-5 [facility] Comment on above: Performed By: #### L 100.0100, L500.4050, M100.2200 #### [facility] Laboratory [address] [place], [address] Platelet mean volume (Bld) [Entitic vol] 12.7 fL High 6.2-12.0 [facility] Comment on above: Performed By: #### L 100.0100, L500.4050, M100.2200 #### [facility] Laboratory [address] [place], [address] Platelets (Bld) [#/Vol] 246 10*3/uL Normal 150-450 [facility] Comment on above: Performed By: #### L 100.0100, L500.4050, M100.2200 #### [facility] Laboratory [address] [place], [address] RBC (Bld) [#/Vol] 3.78 10*6/uL Low 4.2-5.4 [facility] Comment on above: Performed By: #### L 100.0100, L500.4050, M100.2200 #### [facility] Laboratory [address] [place], [address] RDW SD 47.9 fl High 35.1-43.9 [facility] Comment on above: Performed By: #### L 100.0100, L500.4050, M100.2200 #### [facility] Laboratory [address] [place], [address] WBC (Bld) [#/Vol] 8.5 10*3/uL Normal 4.4-11.0 [facility] Comment on above: Performed By: #### L 100.0100, L500.4050, M100.2200 #### [facility] Laboratory [address] [place], [address] Comprehensive Metabolic Prof [facility] 10-10-2023 Albumin [Mass/Vol] 3.5 g/dL Normal 3.2-5.0 [facility] Comment on above: Performed By: #### L 100.0100, L500.4050, M100.2200 #### [facility] Laboratory [address] [place], [address] Albumin/Globulin [Mass ratio] 0.9 {ratio} Normal 0.9-2.4 [facility] Comment on above: Performed By: #### L 100.0100, L500.4050, M100.2200 #### [facility] Laboratory [address] [place], [address] ALK P 83 U/L Normal 45-117 [facility] Comment on above: Performed By: #### L 100.0100, L500.4050, M100.2200 #### [facility] Laboratory [address] [place], [address] ALT [Catalytic activity/Vol] 21 U/L Normal 13-56 [facility] Comment on above: Performed By: #### L 100.0100, L500.4050, M100.2200 #### [facility] Laboratory [address] [place], [address] AST [Catalytic activity/Vol] 25 U/L Normal 15-37 [facility] Comment on above: Performed By: #### L 100.0100, L500.4050, M100.2200 #### [facility] Laboratory [address] [place], [address] Bilirubin [Mass/Vol] 0.70 mg/dL Normal 0.20-1.00 [facility] Comment on above: Result Comment: For patients on eltrombopag therapy, use of Dimension [place] TBIL is not recommended. Performed By: #### L 100.0100, L500.4050, M100.2200 #### [facility] Laboratory [address] [place], [address] BUN/CRE 14.7 RATIO Normal 10-20 [facility] Comment on above: Performed By: #### L 100.0100, L500.4050, M100.2200 #### [facility] Laboratory [address] [place], [address] CA,Total 8.7 mg/dL Normal 8.5-10.1 [facility] Comment on above: Performed By: #### L 100.0100, L500.4050, M100.2200 #### [facility] Laboratory [address] [place], [address] Chloride [Moles/Vol] 101 mmol/L Normal 98-107 [facility] Comment on above: Performed By: #### L 100.0100, L500.4050, M100.2200 #### [facility] Laboratory [address] [place], [address] CO2 [Moles/Vol] 27.0 mmol/L Normal 21.0-32.0 [facility] Comment on above: Performed By: #### L 100.0100, L500.4050, M100.2200 #### [facility] Laboratory [address] [place], [address] Creatinine [Mass/Vol] 0.88 mg/dL Normal 0.55-1.02 [facility] Comment on above: Result Comment: The validity of the calculated GFR GFRAA in patients over 70 years has not been determined. Clinical correlation is essential. Performed By: #### L 100.0100, L500.4050, M100.2200 #### [facility] Laboratory [address] [place], [address] EST GFR - AA 80 mL/min Normal >60 [facility] Comment on above: Result Comment: Afri can Afghan GFR Calc Performed By: #### L 100.0100, L500.4050, M100.2200 #### [facility] Laboratory [address] [place], [address] GAP 8 Normal 5-15 [facility] Comment on above: Performed By: #### L 100.0100, L500.4050, M100.2200 #### [facility] Laboratory [address] [place], [address] GFR/1.73 sq M.predicted among non-blacks MDRD (S/P/Bld) [Vol rate/Area] 66 mL/min/{1.73_m2} Normal >60 [facility] Comment on above: Result Comment: Non- GFR Calc Performed By: #### L 100.0100, L500.4050, M100.2200 #### [facility] Laboratory [address] [place], [address] Globulin (S) [Mass/Vol] 3.9 g/dL Normal 2.2-4.2 [facility] Comment on above: Performed By: #### L 100.0100, L500.4050, M100.2200 #### [facility] Laboratory [address] [place], [address] Glucose [Mass/Vol] 96 mg/dL Normal 74-106 [facility] Comment on above: Performed By: #### L 100.0100, L500.4050, M100.2200 #### [facility] Laboratory [address] [place], [address] Potassium [Moles/Vol] 3.8 mmol/L Normal 3.5-5.1 [facility] Comment on above: Performed By: #### L 100.0100, L500.4050, M100.2200 #### [facility] Laboratory [address] [place], [address] Sodium [Moles/Vol] 136 mmol/L Normal 136-145 [facility] Comment on above: Performed By: #### L 100.0100, L500.4050, M100.2200 #### [facility] Laboratory [address] [place], [address] T PROT 7.4 g/dL Normal 6.4-8.2 [facility] Comment on above: Performed By: #### L 100.0100, L500.4050, M100.2200 #### [facility] Laboratory [address] [place], [address] Urea nitrogen [Mass/Vol] 13 mg/dL Normal 7-18 [facility] Comment on above: Performed By: #### L 100.0100, L500.4050, M100.2200 #### [facility] Laboratory [address] [place], [address] Absolute lymphocyte countOrd ered By: Vernon Osman on 05-21-2023 Lymphocytes Auto (Unsp spec) [#/Vol] 1.08 10*3/uL 0.83-4.51 [facility] Automated lymphocyte count a s percentage of total leukocytesOrdered By: Vernon Osman on 05-21-2023 Lymphocytes/100 WBC Auto (Unsp spec) 8.5 % 19-41 [facility] Basophil percentageOrdered B y: Vernon Osman on 05-21-2023 Basophils/100 WBC (Bld) 0.6 % 0-1 [facility] Chloride [Moles/Vol] 112 mmol/L 98-107 [facility] Eosinophils/100 WBC (Bld) 2.0 % 0-5 [facility] Glucose [Mass/Vol] 136 mg/dL 74-106 [facility] Comment on above: Fasting Glucose resu lt greater than or equal to 126 mg/dL suggests DIABETES MELLITUS per A.D.A. criteria. Hemoglobin (Bld) [Mass/Vol] 10.3 g/dL 12.0-15.0 [facility] Monocytes/100 WBC (Bld) 9.4 % 0-10 [facility] Neutrophils (Bld) [#/Vol] 10.0 10*3/uL 2.0-7.7 [facility] Neutrophils/100 WBC (Bld) 79.0 % 47-70 [facility] Potassium [Moles/Vol] 3.4 mmol/L 3.5-5.1 [facility] Sodium [Moles/Vol] 142 mmol/L 136-145 [facility] WBC (Bld) [#/Vol] 12.7 10*3/uL 4.4-11.0 [facility] Determination of erythrocyte mean corpuscular volume (MCV)Ordered By: Vernon Osman on 05-21-2023 MCV (RBC) [Entitic vol] 99.1 fL 81-99 W [facility] Erythrocyte distribution wid th ratioOrdered By: Vernon Osman on 05-21-2023 Erythrocyte distribution width (RBC) [Ratio] 15.1 % 11.6-14.6 [facility] Erythrocyte distribution wid th standard deviationOrdered By: Vernon Osman on 05-21-2023 Erythrocyte distribution width (RBC) [Entitic vol] 54.6 fL 35.1-43.9 [facility] Hematocrit Auto (Bld) [Volum e fraction]Ordered By: Vernon Osman on 05-21-2023 Hematocrit (Bld) [Volume fraction] 32.2 % 37-47 [facility] Immature granulocytes/100 WB C Auto (Bld)Ordered By: Vernon Osman on 05-21-2023 Immature granulocytes/100 WBC (Bld) 0.500 % 0.0-0.9 [facility] Comment on above: IG% - Immature Granu locytes (promyelocytes, myelocytes and metamyelocytes) > 1% indicates that a LEFT SHIFT is Present. Laboratory - Chemistry and C hemistry - challengeOrdered By: Vernon Osman on 05-21-2023 CO2 [Moles/Vol] 25.0 mmol/L 21.0-32.0 [facility] Urea nitrogen/Creatinine [Mass ratio] 9.1 mg/mg 10-20 [facility] Laboratory - Hematology and Cell countsOrdered By: Vernon Osman on 05-21-2023 MCH (RBC) [Entitic mass] 31.7 pg 27.0-32.0 [facility] MCHC (RBC) [Mass/Vol] 32.0 g/dL 32-36 [facility] Nucleated RBC/100 WBC (Bld) [Ratio] 0 % 0-5 [facility] Platelets (Bld) [#/Vol] 218 10*3/uL 150-450 [facility] No Panel InformationOrdered By: Vernon Osman on 05-21-2023 Estimated Creatinine Clearance Calc 61.89 ml/min [facility] Estimated GFR (MDRD) Amer 94 mL/min >60 [facility] Comment on above: GFR Calc Estimated GFR (MDRD) Non-Af Amer 78 mL/min >60 [facility] Comment on above: Non- GFR Calc Platelet mean volume Cayden-Ec ker (Bld) [Entitic vol]Ordered By: Vernon Osman on 05-21-2023 Platelet mean volume (Bld) [Entitic vol] 11.8 fL 6.2-12.0 [facility] RBC Auto (Bld) [#/Vol]Ordere d By: Vernon Osman on 05-21-2023 RBC (Bld) [#/Vol] 3.25 10*6/uL 4.2-5.4 [facility] Serum or plasma calcium rajni urement (mass/volume)Ordered By: Vernon Osman on 05-21-2023 Calcium [Mass/Vol] 8.0 mg/dL 8.5-10.1 [facility] Serum or plasma creatinine m easurement (mass/volume)Ordered By: Vernon Osman on 05-21-2023 Creatinine [Mass/Vol] 0.77 mg/dL 0.55-1.02 [facility] Comment on above: The validity of the calculated GFR & GFRAA in patients over 70 years has not been determined. Clinical correlation is essential. Serum or plasma urea nitroge n measurement (mass/volume)Ordered By: Vernon Osman on 05-21-2023 Urea nitrogen [Mass/Vol] 7 mg/dL 7-18 [facility] Thin prep Papanicolaou smear with manual screeningOrdered By: Vernon Osman on 05-21-2023 Thin prep Papanicolaou smear with manual screening 5 5-15 [facility] Basophil percentageOrdered B y: Vernon Osman on 05-20-2023 Basophil percentage 3.2 mg/dL 2.5-4.9 [facility] Blood manual differential co mment interpretation (narrative result)Ordered By: Vernon Osman on 05-20-2023 Manual differential comment Donnie (Bld) [Interp] SCANNED [facility] Comment on above: MONOCYTOSIS PRESENT Laboratory - Chemistry and C hemistry - challengeOrdered By: Vernon Osman on 05-20-2023 Magnesium [Mass/Vol] 2.2 mg/dL 1.6-2.6 [facility] Review by pathologistOrdered By: Vernon Osman on 05-20-2023 Pathologist review Donnie (Unsp spec) [Interp] Reviewed [facility] Comment on above: Previous reported re sult: Nohelia mcdowell Edited by: [email or web address] on 05/20/23:1306Neutrophilic leukocytosis.Macrocytic anemia.Clinical correlation necessary.Greg Guerin M.D. 05/20/23 AMENDED REPORT 05/20/23 1306 PATH REV previously reported as: Nohelia mcdowell Basophil percentageOrdered B y: Aggie Bolton on 05-19-2023 Bilirubin [Mass/Vol] 0.70 mg/dL 0.20-1.00 [facility] Comment on above: For patients on eltr ombopag therapy, use of Dimension [place] TBIL is not recommended. Protein [Mass/Vol] 6.4 g/dL 6.4-8.2 [facility] Basophil percentageOrdered B y: Jorge Cardona on 05-19-2023 Basophil percentage < 10.0 ug/mL 10.0-30.0 [facility] Culture, urineOrdered By: Sonja Cardona on 05-19-2023 Bacteria identified Cx Nom (U) Presumptive E. coli [facility] Laboratory - Chemistry and C hemistry - challengeOrdered By: Aggie Bolton on 05-19-2023 Albumin/Globulin [Mass ratio] 0.7 {ratio} 0.9-2.4 [facility] ALP [Catalytic activity/Vol] 94 U/L 45-117 [facility] ALT [Catalytic activity/Vol] 15 U/L 13-56 [facility] Globulin (S) [Mass/Vol] 3.8 g/dL 2.2-4.2 [facility] No Panel InformationOrdered By: Jorge Cardona on 05-19-2023 Ethyl Alcohol Level < 3.0 mg/dL [facility] Comment on above: The serum:whole bloo d ethanol ratio is approximately 1.14and varies slightly with hematocrit. Medical Alcohol reference interval and critical value innon-tolerant individuals; 50 - 100 Impairment 100 Intoxication 100 - 250 Severe Poisoning 250 - 400 Deep/possible fatal coma No Panel InformationOrdered By: Aggie Bolton on 05-19-2023 Streptococcus pneumoniae Antigen (M [facility] Thin prep Papanicolaou smear with manual screeningOrdered By: [facility] Che on 05-19-2023 Thin prep Papanicolaou smear with manual screening 2.6 g/dL 3.2-5.0 [facility] Thin prep Papanicolaou smear with manual screening 19 U/L 15-37 [facility] [facility] Urine Legionella pneumophila antigen detectionOrdered By: [facility] on 05-19-2023 L. pneumophila Ag Ql (U) [facility] Absolute lymphocyte countOrd ered By: Jorge Cardona on 05-18-2023 Lymphocytes Auto (Unsp spec) [#/Vol] 0.96 10*3/uL 0.83-4.51 [facility] Activated partial thrombopla stin time (aPTT) in platelet poor plasma by coagulation aOrdered By: Jorge Cardona on 05-18-2023 aPTT Coag (PPP) [Time] 30.3 s 24.1-36.2 [facility] Automated lymphocyte count a s percentage of total leukocytesOrdered By: Jorge Cardona on 05-18-2023 Lymphocytes/100 WBC Auto (Unsp spec) 6.3 % 19-41 [facility] Basophil percentageOrdered B y: Jorge Cardona on 05-18-2023 Basophil percentage >100 SEEN /hpf 0-5 [facility] Basophils/100 WBC (Bld) 0.5 % 0-1 W [facility] Bilirubin [Mass/Vol] 1.40 mg/dL 0.20-1.00 [facility] Comment on above: For patients on eltr ombopag therapy, use of Dimension [place] TBIL is not recommended. Chloride [Moles/Vol] 109 mmol/L 98-107 [facility] Eosinophils/100 WBC (Bld) 0.3 % 0-5 [facility] Glucose [Mass/Vol] 134 mg/dL 74-106 [facility] Comment on above: Fasting Glucose resu lt greater than or equal to 126 mg/dL suggests DIABETES MELLITUS per A.D.A. criteria. Hemoglobin (Bld) [Mass/Vol] 11.9 g/dL 12.0-15.0 [facility] Lactate [Moles/Vol] 1.7 mmol/L 0.4-2.0 [facility] Monocytes/100 WBC (Bld) 2.4 % 0-10 [facility] Neutrophils (Bld) [#/Vol] 13.7 10*3/uL 2.0-7.7 [facility] Neutrophils/100 WBC (Bld) 89.8 % 47-70 [facility] Potassium [Moles/Vol] 3.8 mmol/L 3.5-5.1 [facility] Comment on above: Slight Hemolysis, Re sult may be falsely increased. Protein [Mass/Vol] 7.5 g/dL 6.4-8.2 [facility] Sodium [Moles/Vol] 139 mmol/L 136-145 [facility] WBC (Bld) [#/Vol] 15.2 10*3/uL 4.4-11.0 [facility] Bilirubin Test strip Ql (U)O rdered By: Jorge Cardona on 05-18-2023 Bilirubin Ql (U) Negative Negative [facility] Determination of erythrocyte mean corpuscular volume (MCV)Ordered By: Jorge Cardona on 05-18-2023 MCV (RBC) [Entitic vol] 97.9 fL 81-99 [facility] Erythrocyte distribution wid th ratioOrdered By: Jorge Cardona on 05-18-2023 Erythrocyte distribution width (RBC) [Ratio] 15.1 % 11.6-14.6 [facility] Erythrocyte distribution wid th standard deviationOrdered By: Jorgemel Cardona on 05-18-2023 Erythrocyte distribution width (RBC) [Entitic vol] 54.4 fL 35.1-43.9 [facility] Hematocrit Auto (Bld) [Volum e fraction]Ordered By: Jorge Cardona on 05-18-2023 Hematocrit (Bld) [Volume fraction] 36.7 % 37-47 [facility] Immature granulocytes/100 WB C Auto (Bld)Ordered By: Jorge Cardona on 05-18-2023 Immature granulocytes/100 WBC (Bld) 0.700 % 0.0-0.9 [facility] Comment on above: IG% - Immature Granu locytes (promyelocytes, myelocytes and metamyelocytes) > 1% indicates that a LEFT SHIFT is Present. International normalized rat io (INR) calculationOrdered By: Jorge Cardona on 05-18-2023 INR Coag (PPP) [Relative time] 1.3 {INR} [facility] Ketones Test strip Ql (U)Ord ered By: Jorge Cardona on 05-18-2023 Ketones Ql (U) 5 mg/dl Negative [facility] Laboratory - Chemistry and C hemistry - challengeOrdered By: Jorge Cardona on 05-18-2023 Albumin/Globulin [Mass ratio] 0.7 {ratio} 0.9-2.4 [facility] ALP [Catalytic activity/Vol] 116 U/L 45-117 [facility] ALT [Catalytic activity/Vol] 17 U/L 13-56 [facility] CO2 [Moles/Vol] 24.0 mmol/L 21.0-32.0 [facility] Globulin (S) [Mass/Vol] 4.3 g/dL 2.2-4.2 [facility] Urea nitrogen/Creatinine [Mass ratio] 18.9 mg/mg 10-20 [facility] Laboratory - CoagulationOrde red By: Jorgemel Cardona on 05-18-2023 PT Coag (PPP) [Time] 16.0 s 11.7-14.9 [facility] Laboratory - Drug toxicology Ordered By: Jorgemel Cardona on 05-18-2023 Amphetamines Ql (U) Negative <1000 ng/mL [facility] Benzodiazepines Ql (U) Negative < 200 ng/mL [facility] Cannabinoids Screen Ql (U) Negative < 50 ng/mL [facility] Cocaine Ql (U) Negative < 300 ng/mL [facility] Opiates Ql (U) Positive < 300 ng/mL [facility] Laboratory - Hematology and Cell countsOrdered By: Jorgemel Cardona on 05-18-2023 MCH (RBC) [Entitic mass] 31.7 pg 27.0-32.0 [facility] MCHC (RBC) [Mass/Vol] 32.4 g/dL 32-36 [facility] Nucleated RBC/100 WBC (Bld) [Ratio] 0 % 0-5 [facility] Platelets (Bld) [#/Vol] 199 10*3/uL 150-450 [facility] Laboratory - Microbiology an d Antimicrobial susceptibilityOrdered By: Jorge Cardona on 05-18-2023 Bacteria identified Cx Nom (Bld) Escherichia coli [facility] SARS-CoV-2 (COVID-19) RNA LEONA+probe Ql (Unsp spec) [facility] Bacteria identified Cx Nom (Bld) No growth in 5 days. [facility] SARS-CoV-2 (COVID-19) RNA LEONA+probe Ql (Unsp spec) [facility] Mucus LM Ql (Urine sed)Order ed By: Jorge Cardona on 05-18-2023 Mucus Ql (Urine sed) 0 SEEN /hpf [facility] Nitrite Test strip Ql (U)Ord ered By: Jorge Cardona on 05-18-2023 Nitrite Ql (U) Positive Negative [facility] No Panel InformationOrdered By: Jorge Cardona on 05-18-2023 Estimated Creatinine Clearance Calc 40.12 ml/min [facility] Estimated GFR (MDRD) Amer 55 mL/min >60 [facility] Comment on above: GFR Calc Estimated GFR (MDRD) Non-Af Amer 46 mL/min >60 [facility] Comment on above: Non- GFR Calc MDMA (Ecstasy) Screen Negative < 500 ng/mL [facility] Urine Barbiturates Screen Negative < 200 ng/mL [facility] Urine Drug Screen Comment [facility] Comment on above: CONFIRMATORY TESTING FOR ALL [...] Methadone Screen Negative < 300 ng/mL [facility] Urine RBC 10-25 SEEN /hpf 0-5 [facility] Platelet mean volume Cay[place]-Ec ker (Bld) [Entitic vol]Ordered By: Jorge Cardona on 05-18-2023 Platelet mean volume (Bld) [Entitic vol] 12.5 fL 6.2-12.0 [facility] Protein Test strip Ql (U)Ord ered By: Jorge Cardona on 05-18-2023 Protein Ql (U) 100 mg/dl Negative [facility] RBC Auto (Bld) [#/Vol]Ordere d By: Jorge Cardona on 05-18-2023 RBC (Bld) [#/Vol] 3.75 10*6/uL 4.2-5.4 [facility] Serum or plasma calcium rajni urement (mass/volume)Ordered By: Jorge Cardona on 05-18-2023 Calcium [Mass/Vol] 8.6 mg/dL 8.5-10.1 [facility] Serum or plasma creatinine m easurement (mass/volume)Ordered By: Jorge Cardona on 05-18-2023 Creatinine [Mass/Vol] 1.22 mg/dL 0.55-1.02 [facility] Comment on above: The validity of the calculated GFR & GFRAA in patients over 70 years has not been determined. Clinical correlation is essential. Serum or plasma urea nitroge n measurement (mass/volume)Ordered By: Jorge Cardona on 05-18-2023 Urea nitrogen [Mass/Vol] 23 mg/dL 7-18 [facility] Squamous epithelial cells de tection in urine sediment by light microscopyOrdered By: Jorge Cardona on 05-18-2023 Epithelial cells.squamous LM Ql (Urine sed) 0 SEEN /hpf 5-10 [facility] Thin prep Papanicolaou smear with manual screeningOrdered By: Jorge Cardona on 05-18-2023 Thin prep Papanicolaou smear with manual screening 3.2 g/dL 3.2-5.0 [facility] Thin prep Papanicolaou smear with manual screening 22 U/L 15-37 [facility] Comment on above: Slight Hemolysis, Re sult may be falsely increased. Thin prep Papanicolaou smear with manual screening 6 5-15 [facility] Urine blood detectionOrdered By: Jorge Cardona on 05-18-2023 RBC Ql (U) 50 /ul Negative [facility] Urine clarityOrdered By: Jorge Cardona on 05-18-2023 Clarity (U) Cloudy Clear [facility] Urine color determinationOrd ered By: Jorge Cardona on 05-18-2023 Color (U) Yellow Yellow [facility] Urine glucose detectionOrder ed By: Jorge Cardona on 05-18-2023 Glucose Ql (U) Normal mg/dl Normal [facility] Urine leukocyte esterase det ection by dipstickOrdered By: Jorge Cardona on 05-18-2023 Leukocyte esterase Test strip Ql (U) 500 /ul Negative [facility] Urine pHOrdered By: Jorge nguyen on 05-18-2023 pH (U) 6.0 [pH] 5.0 - 8.0 [facility] Urine phencyclidine (PCP) de tectionOrdered By: Jorge Cardona on 05-18-2023 Phencyclidine Ql (U) Negative < 25 ng/mL [facility] Urine sediment bacteria coun t by microscopy (number/high power field)Ordered By: Jorge Cardona on 05-18-2023 Bacteria LM.HPF (Urine sed) [#/Area] 0 /[HPF] None Seen [facility] Urine specific gravity measu rementOrdered By: Jorge Cardona on 05-18-2023 Specific gravity (U) [Rel density] 1.010 1.002-1.030 [facility] Urine urobilinogen measureme ntOrdered By: Jorge Cardona on 05-18-2023 Urobilinogen Ql (U) Normal mg/dl Normal [facility] Absolute lymphocyte countOrd ered By: Bandar Chanel on 11-23-2022 Lymphocytes Auto (Unsp spec) [#/Vol] 0.58 10*3/uL 0.83-4.51 [facility] Basophil percentageOrdered B y: Bandar Chanel on 11-23-2022 Basophils/100 WBC (Bld) 0.5 % 0-1 [facility] Chloride [Moles/Vol] 102 mmol/L 98-107 [facility] Eosinophils/100 WBC (Bld) 0.0 % 0-5 [facility] Glucose [Mass/Vol] 192 mg/dL 74-106 [facility] Comment on above: Fasting Glucose resu lt greater than or equal to 126 mg/dL suggests DIABETES MELLITUS per A.D.A. criteria. Neutrophils (Bld) [#/Vol] 6.0 10*3/uL 2.0-7.7 [facility] Neutrophils/100 WBC (Bld) 89.4 % 47-70 [facility] Potassium [Moles/Vol] 3.3 mmol/L 3.5-5.1 [facility] Sodium [Moles/Vol] 134 mmol/L 136-145 [facility] WBC (Bld) [#/Vol] 6.7 10*3/uL 4.4-11.0 [facility] Blood erythrocytes count (nu mber/volume)Ordered By: Bandar Chanel on 11-23-2022 RBC (Bld) [#/Vol] 4.22 10*6/uL 4.2-5.4 [facility] Blood hemoglobin measurement (mass/volume)Ordered By: Bandar Chanel on 11-23-2022 Hemoglobin (Bld) [Mass/Vol] 12.0 g/dL 12.0-15.0 [facility] Blood lymphocytes/100 leukoc ytesOrdered By: Bandar Chanel on 11-23-2022 Lymphocytes/100 WBC (Bld) 8.7 % 19-41 [facility] Blood manual differential co mment interpretation (narrative result)Ordered By: Bandar Chanel on 11-23-2022 Manual differential comment Donnie (Bld) [Interp] SCANNED [facility] Comment on above: LYMPHOPENIA PRESENT Blood monocytes/100 leukocyt esOrdered By: Bandar Chanel on 11-23-2022 Monocytes/100 WBC (Bld) 1.1 % 0-10 [facility] Blood platelet mean volumeOr dered By: Bandar Chanel on 11-23-2022 Platelet mean volume (Bld) [Entitic vol] 12.1 fL 6.2-12.0 [facility] CNPNon 11-23-2022 CNPN Telephone ([facility]) DIAMONDAIDEN ([id number]) 1945 F Date Time Provider Department 11/23/22 [...] Comments: rapid heart beat/gets real excitable NEOSPORIN ([id number] *08/14/2006 Comments: contact dermatitis post op Date [...] [F41.1] 05/24/2015 (more content not included)... Normal [facility] Determination of erythrocyte mean corpuscular volume (MCV)Ordered By: Bandar Chanel on 11-23-2022 MCV (RBC) [Entitic vol] 90.0 fL 81-99 [facility] Hematocrit Auto (Bld) [Volum e fraction]Ordered By: Bandar Chanel on 11-23-2022 Hematocrit (Bld) [Volume fraction] 38.0 % 37-47 [facility] Laboratory - Chemistry and C hemistry - challengeOrdered By: Bandar Chanel on 11-23-2022 CO2 [Moles/Vol] 26.0 mmol/L 21.0-32.0 [facility] Free T4 [Mass/Vol] 1.40 ng/dL 0.76-1.46 [facility] Urea nitrogen/Creatinine [Mass ratio] 22.8 mg/mg 10-20 [facility] Laboratory - Hematology and Cell countsOrdered By: Bandar Chanel on 11-23-2022 Erythrocyte distribution width (RBC) [Entitic vol] 54.4 fL 35.1-43.9 [facility] Erythrocyte distribution width (RBC) [Ratio] 16.4 % 11.6-14.6 [facility] Immature granulocytes/100 WBC (Bld) 0.300 % 0.0-0.9 [facility] Comment on above: IG% - Immature Granu locytes (promyelocytes, myelocytes and metamyelocytes) > 1% indicates that a LEFT SHIFT is Present. MCH (RBC) [Entitic mass] 28.4 pg 27.0-32.0 [facility] Nucleated RBC/100 WBC (Bld) [Ratio] 0 % 0-5 [facility] MCHC Auto (RBC) [Mass/Vol]Or dered By: Bandar Chanel on 11-23-2022 MCHC (RBC) [Mass/Vol] 31.6 g/dL 32-36 [facility] No Panel InformationOrdered By: Bandar Chanel on 11-23-2022 Estimated Creatinine Clearance Calc 44.80 ml/min [facility] Estimated GFR (MDRD) Amer 133 mL/min >60 [facility] Comment on above: GFR Calc Estimated GFR (MDRD) Non-Af Amer 110 mL/min >60 [facility] Comment on above: Non- GFR Calc Thyroid Stimulating Hormone (TSH) 0.24 uIU/mL 0.358-3.74 [facility] Platelets bldOrdered By: Anthony Chanel on 11-23-2022 Platelets (Bld) [#/Vol] 281 10*3/uL 150-450 [facility] Serum or plasma calcium rajni urement (mass/volume)Ordered By: Bandar Chanel on 11-23-2022 Calcium [Mass/Vol] 8.1 mg/dL 8.5-10.1 [facility] Serum or plasma creatinine m easurement (mass/volume)Ordered By: Bandar Chanel on 11-23-2022 Creatinine [Mass/Vol] 0.57 mg/dL 0.55-1.02 [facility] Comment on above: The validity of the calculated GFR & GFRAA in patients over 70 years has not been determined. Clinical correlation is essential. Serum or plasma urea nitroge n measurement (mass/volume)Ordered By: Bandar Chanel on 11-23-2022 Urea nitrogen [Mass/Vol] 13 mg/dL 7-18 [facility] Thin prep Papanicolaou smear with manual screeningOrdered By: Bandar Chanel on 11-23-2022 Thin prep Papanicolaou smear with manual screening 6 5-15 [facility] Absolute lymphocyte countOrd ered By: Katie Randle on 11-22-2022 Lymphocytes Auto (Unsp spec) [#/Vol] 1.44 10*3/uL 0.83-4.51 [facility] Basophil percentageOrdered B y: Katie Randle on 11-22-2022 Basophils/100 WBC (Bld) 0.7 % 0-1 [facility] Chloride [Moles/Vol] 102 mmol/L 98-107 [facility] Eosinophils/100 WBC (Bld) 6.7 % 0-5 [facility] Glucose [Mass/Vol] 82 mg/dL 74-106 [facility] Neutrophils (Bld) [#/Vol] 6.1 10*3/uL 2.0-7.7 [facility] Neutrophils/100 WBC (Bld) 64.5 % 47-70 [facility] Potassium [Moles/Vol] 4.1 mmol/L 3.5-5.1 [facility] Sodium [Moles/Vol] 137 mmol/L 136-145 [facility] WBC (Bld) [#/Vol] 9.4 10*3/uL 4.4-11.0 [facility] Blood erythrocytes count (nu mber/volume)Ordered By: Katie Randle on 11-22-2022 RBC (Bld) [#/Vol] 3.81 10*6/uL 4.2-5.4 [facility] Blood hemoglobin measurement (mass/volume)Ordered By: Katie Randle on 11-22-2022 Hemoglobin (Bld) [Mass/Vol] 11.0 g/dL 12.0-15.0 [facility] Blood lymphocytes/100 leukoc ytesOrdered By: Katie Randle on 11-22-2022 Lymphocytes/100 WBC (Bld) 15.4 % 19-41 [facility] Blood monocytes/100 leukocyt esOrdered By: Katie Randle on 11-22-2022 Monocytes/100 WBC (Bld) 12.3 % 0-10 [facility] Blood platelet mean volumeOr dered By: Katie Randle on 11-22-2022 Platelet mean volume (Bld) [Entitic vol] 11.8 fL 6.2-12.0 [facility] CNOVon 11-22-2022 [facility] AIDEN FIELDS ([id number]) 1945 F Date Time Provider Department 11/22/22 11:45 AM ELIEL BLOUNT [facility] During your visit today, we recorded the following information about you: Temperature Pulse Respiration Blood pressure 99.6 degrees 85/minute 18/minute 110/64 Weight 68 kg Eliel Blount APRN.PITCH GATHERER 11/22/2022 12:42 PM Signed Subjective HPI Nontoxic-appearing [...] MAST MODF RAD W/AX LYMPH NOD W/WO PECT/AANID MIN 5-16-13 left OPEN TREATMENT PROXIMAL HUMERAL FRACTURE Right 06/13/2018 ORIF right shoulder proximal humerus PAST SURGICAL HISTORY OF lump removed from left side of neck as a child PAST SURGICAL HISTORY OF breast biopsies, negative PAST SURGICAL HISTORY OF 01/2008 DANIL PAST SURGICAL HISTORY OF 06/08/2009 Thyroidectomy PAST [...] - Alkylamine, Benadryl [Diphenhydramine Hcl], and Neosporin [Svwqncsp-Nqrlpdryiy-Is lymyxin] MEDICATIONS oxyCODONE IR (ROXICODONE) 5 mg [...] and azam (more content not included)... Normal [facility] COVID-19 virus antigen assay Ordered By: Katie Randle on 11-22-2022 SARS-CoV-2 (COVID-19) Ag IA.rapid Ql (Resp) [facility] Determination of erythrocyte mean corpuscular volume (MCV)Ordered By: Katie Randle on 11-22-2022 MCV (RBC) [Entitic vol] 92.1 fL 81-99 W [facility] Hematocrit Auto (Bld) [Volum e fraction]Ordered By: Katiebriana Randle on 11-22-2022 Hematocrit (Bld) [Volume fraction] 35.1 % 37-47 [facility] Laboratory - Chemistry and C hemistry - challengeOrdered By: Katie Randle on 11-22-2022 CO2 [Moles/Vol] 32.0 mmol/L 21.0-32.0 [facility] Natriuretic peptide B (Bld) [Mass/Vol] 198.9 pg/mL 0-100 [facility] Urea nitrogen/Creatinine [Mass ratio] 27.9 mg/mg 10-20 [facility] Laboratory - Hematology and Cell countsOrdered By: Katiebriana Randle on 11-22-2022 Erythrocyte distribution width (RBC) [Entitic vol] 56.1 fL 35.1-43.9 [facility] Erythrocyte distribution width (RBC) [Ratio] 16.7 % 11.6-14.6 [facility] Immature granulocytes/100 WBC (Bld) 0.400 % 0.0-0.9 [facility] Comment on above: IG% - Immature Granu locytes (promyelocytes, myelocytes and metamyelocytes) > 1% indicates that a LEFT SHIFT is Present. MCH (RBC) [Entitic mass] 28.9 pg 27.0-32.0 [facility] Nucleated RBC/100 WBC (Bld) [Ratio] 0 % 0-5 [facility] MCHC Auto (RBC) [Mass/Vol]Or dered By: Katie Randle on 11-22-2022 MCHC (RBC) [Mass/Vol] 31.3 g/dL 32-36 [facility] No Panel InformationOrdered By: Katie Randle on 11-22-2022 Estimated Creatinine Clearance Calc 44.80 ml/min [facility] Estimated GFR (MDRD) Amer 132 mL/min >60 [facility] Comment on above: GFR Calc Estimated GFR (MDRD) Non-Af Amer 109 mL/min >60 [facility] Comment on above: Non- GFR Calc Troponin I High Sensitivity 7 pg/mL 3.0-54.0 [facility] Comment on above: Please Note: New [place] t Units and Gender Specific Reference Ranges. For more information see Policy Stat Procedure [place] High Sensitivity Troponin (TNIH) and attachments. Platelets bldOrdered By: Amy Randle on 11-22-2022 Platelets (Bld) [#/Vol] 247 10*3/uL 150-450 [facility] Respiratory pathogens DNA an d RNA panel LEONA+probe (Resp)Ordered By: Bandar Chanel on 11-22-2022 Respiratory Panel (PCR) Rhinovirus W [facility] SARS-CoV-2 RNA Resp Ql LEONA+p robeon 11-22-2022 SARS-CoV-2 (COVID-19) RNA LEONA+probe Ql (Resp) COVID 19 RESULT: Not detected The method used is RT-PCR or an equivalent NAAT method. Reference Range (the expected result in uninfected individuals): Not detected Normal [facility] Comment on above: Performed By: #### [id number] #### [facility] CLIA [id number] [address] [place] [address] [place] Serum or plasma calcium rajni urement (mass/volume)Ordered By: Katie Randle on 11-22-2022 Calcium [Mass/Vol] 8.3 mg/dL 8.5-10.1 [facility] Serum or plasma creatinine m easurement (mass/volume)Ordered By: Katie Randle on 11-22-2022 Creatinine [Mass/Vol] 0.57 mg/dL 0.55-1.02 [facility] Comment on above: The validity of the calculated GFR & GFRAA in patients over 70 years has not been determined. Clinical correlation is essential. Serum or plasma urea nitroge n measurement (mass/volume)Ordered By: Katie Randle on 11-22-2022 Urea nitrogen [Mass/Vol] 16 mg/dL 7-18 [facility] Thin prep Papanicolaou smear with manual screeningOrdered By: Katie Randle on 11-22-2022 Thin prep Papanicolaou smear with manual screening 3 5-15 [facility] XR CHEST 2V FRONTAL/LATon XR CHEST 2V [...] thoracolumbar junction. IMPRESSION: No acute cardiopulmonary process. Temperature Regulator: FILIBERTO Transcribe Date/Time: Nov 22 2022 12:17P Dictated by : SHEN ESQUIVEL MD This examination was interpreted and the report reviewed and electronically signed by: SHEN ESQUIVEL MD on Nov 22 2022 12:20PM EST [id number] Normal [facility] XR Chest PA and Lateralon IMPRESSION: No acute cardiopulmonary process. Temperature Regulator: FILIBERTO Transcribe Date/Time: Nov 22 2022 12:17P [...] the thoracolumbar junction. DIVISION OF RADIOLOGY Provider, [facility] 11/22/2022 * * *Final Report* [...] junction. IMPRESSION IMPRESSION: No acute cardiopulmonary process. Temperature Regulator: FILIBERTO Transcribe Date/Time: Nov 22 2022 12:17P Dictated by : SHEN ESQUIVEL MD This examination was interpreted and the report reviewed and electronically signed by: SHEN ESQUIVEL MD on Nov 22 2022 12:20PM EST [facility] Radiology Study observation (narrative) Lakisha mckenna [facility] XR Chest PA and LateralOrder ed By: Ccf Provider on 11-22-2022 [facility] Laboratory - Chemistry and C hemistry - challengeOrdered By: Erica Richardson on 11-14-2022 Free T4 [Mass/Vol] 1.35 ng/dL 0.76-1.46 [facility] No Panel InformationOrdered By: Erica Richardson on 11-14-2022 Free Triiodothyronine (T3) pg/dL 2.2 pg/mL 2.18-3.98 [facility] Thyroid Stimulating Hormone (TSH) 0.75 uIU/mL 0.358-3.74 [facility] Absolute lymphocyte countOrd ered By: Dr. Richardson on 09-13-2022 Lymphocytes Auto (Unsp spec) [#/Vol] 1.36 10*3/uL 0.83-4.51 [facility] Basophil percentageOrdered B y: Dr. Richardson on 09-13-2022 Basophils/100 WBC (Bld) 1.0 % 0-1 [facility] Bilirubin [Mass/Vol] 0.50 mg/dL 0.20-1.00 [facility] Comment on above: For patients on eltr ombopag therapy, use of Dimension [place] TBIL is not recommended. Chloride [Moles/Vol] 101 mmol/L 98-107 [facility] Eosinophils/100 WBC (Bld) 5.7 % 0-5 [facility] Glucose [Mass/Vol] 94 mg/dL 74-106 [facility] Neutrophils (Bld) [#/Vol] 7.2 10*3/uL 2.0-7.7 [facility] Neutrophils/100 WBC (Bld) 70.2 % 47-70 [facility] Potassium [Moles/Vol] 4.4 mmol/L 3.5-5.1 [facility] Protein [Mass/Vol] 8.0 g/dL 6.4-8.2 [facility] Sodium [Moles/Vol] 137 mmol/L 136-145 [facility] WBC (Bld) [#/Vol] 10.3 10*3/uL 4.4-11.0 [facility] Blood erythrocytes count (nu mber/volume)Ordered By: Dr. Richardson on 09-13-2022 RBC (Bld) [#/Vol] 3.92 10*6/uL 4.2-5.4 [facility] Blood hemoglobin measurement (mass/volume)Ordered By: Dr. Richardson on 09-13-2022 Hemoglobin (Bld) [Mass/Vol] 12.5 g/dL 12.0-15.0 [facility] Blood lymphocytes/100 leukoc ytesOrdered By: Dr. Richardson on 09-13-2022 Lymphocytes/100 WBC (Bld) 13.2 % 19-41 [facility] Blood monocytes/100 leukocyt esOrdered By: Dr. Richardson on 09-13-2022 Monocytes/100 WBC (Bld) 9.5 % 0-10 [facility] Blood platelet mean volumeOr dered By: Dr. Richardson on 09-13-2022 Platelet mean volume (Bld) [Entitic vol] 11.6 fL 6.2-12.0 [facility] Determination of erythrocyte mean corpuscular volume (MCV)Ordered By: Dr. Richardson on 09-13-2022 MCV (RBC) [Entitic vol] 100.5 fL 81-99 [facility] Hematocrit Auto (Bld) [Volum e fraction]Ordered By: Dr. Richardson on 09-13-2022 Hematocrit (Bld) [Volume fraction] 39.4 % 37-47 [facility] Laboratory - Chemistry and C hemistry - challengeOrdered By: Dr. Richardson on 09-13-2022 ALP [Catalytic activity/Vol] 136 U/L 45-117 [facility] ALT [Catalytic activity/Vol] 23 U/L 13-56 [facility] CO2 [Moles/Vol] 28.0 mmol/L 21.0-32.0 [facility] Free T4 [Mass/Vol] 1.06 ng/dL 0.76-1.46 [facility] Globulin (S) [Mass/Vol] 4.2 g/dL 2.2-4.2 [facility] Urea nitrogen/Creatinine [Mass ratio] 32.9 mg/mg 10-20 [facility] Laboratory - Hematology and Cell countsOrdered By: Dr. Richardson on 09-13-2022 Erythrocyte distribution width (RBC) [Entitic vol] 48.6 fL 35.1-43.9 [facility] Erythrocyte distribution width (RBC) [Ratio] 13.1 % 11.6-14.6 [facility] Immature granulocytes/100 WBC (Bld) 0.400 % 0.0-0.9 [facility] Comment on above: IG% - Immature Granu locytes (promyelocytes, myelocytes and metamyelocytes) > 1% indicates that a LEFT SHIFT is Present. MCH (RBC) [Entitic mass] 31.9 pg 27.0-32.0 [facility] Nucleated RBC/100 WBC (Bld) [Ratio] 0 % 0-5 [facility] MCHC Auto (RBC) [Mass/Vol]Or dered By: Dr. Richardson on 09-13-2022 MCHC (RBC) [Mass/Vol] 31.7 g/dL 32-36 [facility] No Panel InformationOrdered By: Dr. Richardson on 09-13-2022 Estimated GFR (MDRD) Amer 111 mL/min >60 [facility] Comment on above: GFR Calc Estimated GFR (MDRD) Non-Af Amer 91 mL/min >60 [facility] Comment on above: Non- GFR Calc Free Triiodothyronine (T3) pg/dL 1.4 pg/mL 2.18-3.98 [facility] Thyroid Stimulating Hormone (TSH) 6.44 uIU/mL 0.358-3.74 [facility] Platelets bldOrdered By: Dr. Richardson on 09-13-2022 Platelets (Bld) [#/Vol] 335 10*3/uL 150-450 [facility] Serum or plasma albumin rajni urement (mass/volume)Ordered By: Dr. Richardson on 09-13-2022 Albumin [Mass/Vol] 3.8 g/dL 3.2-5.0 [facility] Serum or plasma albumin/glob ulin mass ratioOrdered By: Dr. Richardson on 09-13-2022 Albumin/Globulin [Mass ratio] 0.9 {ratio} 0.9-2.4 [facility] Serum or plasma calcium rajni urement (mass/volume)Ordered By: Dr. Richardson on 09-13-2022 Calcium [Mass/Vol] 8.3 mg/dL 8.5-10.1 [facility] Serum or plasma creatinine m easurement (mass/volume)Ordered By: Dr. Richardson on 09-13-2022 Creatinine [Mass/Vol] 0.67 mg/dL 0.55-1.02 [facility] Comment on above: The validity of the calculated GFR & GFRAA in patients over 70 years has not been determined. Clinical correlation is essential. Serum or plasma urea nitroge n measurement (mass/volume)Ordered By: Dr. Richardson on 09-13-2022 Urea nitrogen [Mass/Vol] 22 mg/dL 7-18 [facility] Serum or plasma uric acid me asurement (mass/volume)Ordered By: Dr. Richardson on 09-13-2022 Urate [Mass/Vol] 3.6 mg/dL 2.6-6.0 [facility] Comment on above: The drugs N-Acetylcy steine and Metamizole may falsely depress this assay. Thin prep Papanicolaou smear with manual screeningOrdered By: Dr. Richardson on 09-13-2022 Thin prep Papanicolaou smear with manual screening 20 U/L 15-37 [facility] Thin prep Papanicolaou smear with manual screening 8 5-15 [facility] Basophil percentageOrdered B y: Roberto Andre on 03-06-2022 Chloride [Moles/Vol] 102 mmol/L 98-107 [facility] Glucose [Mass/Vol] 90 mg/dL 74-106 [facility] Potassium [Moles/Vol] 4.0 mmol/L 3.5-5.1 [facility] Sodium [Moles/Vol] 137 mmol/L 136-145 [facility] WBC (Bld) [#/Vol] 5.7 10*3/uL 4.4-11.0 [facility] Blood erythrocytes count (nu mber/volume)Ordered By: Roberto Andre on 03-06-2022 RBC (Bld) [#/Vol] 4.05 10*6/uL 4.2-5.4 [facility] Blood hemoglobin measurement (mass/volume)Ordered By: Roberto Andre on 03-06-2022 Hemoglobin (Bld) [Mass/Vol] 12.0 g/dL 12.0-15.0 [facility] Blood platelet mean volumeOr dered By: Roberto Andre on 03-06-2022 Platelet mean volume (Bld) [Entitic vol] 12.7 fL 6.2-12.0 [facility] Determination of erythrocyte mean corpuscular volume (MCV)Ordered By: Roberto Andre on 03-06-2022 MCV (RBC) [Entitic vol] 91.9 fL 81-99 [facility] Hematocrit Auto (Bld) [Volum e fraction]Ordered By: Roberto Andre on 03-06-2022 Hematocrit (Bld) [Volume fraction] 37.2 % 37-47 [facility] Laboratory - Chemistry and C hemistry - challengeOrdered By: Roberto Andre on 03-06-2022 CO2 [Moles/Vol] 28.0 mmol/L 21.0-32.0 [facility] Urea nitrogen/Creatinine [Mass ratio] 15.9 mg/mg 10-20 [facility] Laboratory - Hematology and Cell countsOrdered By: Roberto Andre on 03-06-2022 Erythrocyte distribution width (RBC) [Entitic vol] 59.7 fL 35.1-43.9 [facility] Erythrocyte distribution width (RBC) [Ratio] 17.7 % 11.6-14.6 [facility] MCH (RBC) [Entitic mass] 29.6 pg 27.0-32.0 [facility] MCHC Auto (RBC) [Mass/Vol]Or dered By: Roberto Andre on 03-06-2022 MCHC (RBC) [Mass/Vol] 32.3 g/dL 32-36 [facility] No Panel InformationOrdered By: Roberto Andre on 03-06-2022 Estimated GFR (MDRD) Amer 134 mL/min >60 [facility] Comment on above: GFR Calc Estimated GFR (MDRD) Non-Af Amer 111 mL/min >60 [facility] Comment on above: Non- GFR Calc Platelets bldOrdered By: Wan Andre on 03-06-2022 Platelets (Bld) [#/Vol] 272 10*3/uL 150-450 [facility] Serum or plasma calcium rajni urement (mass/volume)Ordered By: Roberto Andre on 03-06-2022 Calcium [Mass/Vol] 9.0 mg/dL 8.5-10.1 [facility] Serum or plasma creatinine m easurement (mass/volume)Ordered By: Roberto Andre on 03-06-2022 Creatinine [Mass/Vol] 0.57 mg/dL 0.55-1.02 [facility] Comment on above: The validity of the calculated GFR & GFRAA in patients over 70 years has not been determined. Clinical correlation is essential. Serum or plasma urea nitroge n measurement (mass/volume)Ordered By: Roberto Andre on 03-06-2022 Urea nitrogen [Mass/Vol] 9 mg/dL 7-18 [facility] Thin prep Papanicolaou smear with manual screeningOrdered By: Roberto Andre on 03-06-2022 Thin prep Papanicolaou smear with manual screening 7 5-15 [facility] Basophil percentageOrdered B y: Roberto Andre on 02-27-2022 Chloride [Moles/Vol] 106 mmol/L 98-107 [facility] Glucose [Mass/Vol] 91 mg/dL 74-106 [facility] Potassium [Moles/Vol] 4.1 mmol/L 3.5-5.1 [facility] Sodium [Moles/Vol] 139 mmol/L 136-145 [facility] WBC (Bld) [#/Vol] 6.6 10*3/uL 4.4-11.0 [facility] Blood erythrocytes count (nu mber/volume)Ordered By: Roberto Andre on 02-27-2022 RBC (Bld) [#/Vol] 3.93 10*6/uL 4.2-5.4 [facility] Blood hemoglobin measurement (mass/volume)Ordered By: Roberto Andre on 02-27-2022 Hemoglobin (Bld) [Mass/Vol] 11.6 g/dL 12.0-15.0 [facility] Blood platelet mean volumeOr dered By: Roberto Andre on 02-27-2022 Platelet mean volume (Bld) [Entitic vol] 12.8 fL 6.2-12.0 [facility] Determination of erythrocyte mean corpuscular volume (MCV)Ordered By: Roberto Andre on 02-27-2022 MCV (RBC) [Entitic vol] 90.6 fL 81-99 [facility] Hematocrit Auto (Bld) [Volum e fraction]Ordered By: Roberto Andre on 02-27-2022 Hematocrit (Bld) [Volume fraction] 35.6 % 37-47 [facility] Laboratory - Chemistry and C hemistry - challengeOrdered By: Roberto Andre on 02-27-2022 CO2 [Moles/Vol] 28.0 mmol/L 21.0-32.0 [facility] Urea nitrogen/Creatinine [Mass ratio] 29.4 mg/mg 10-20 [facility] Laboratory - Hematology and Cell countsOrdered By: Roberto Andre on 02-27-2022 Erythrocyte distribution width (RBC) [Entitic vol] 63.4 fL 35.1-43.9 [facility] Erythrocyte distribution width (RBC) [Ratio] 19.1 % 11.6-14.6 [facility] MCH (RBC) [Entitic mass] 29.5 pg 27.0-32.0 [facility] MCHC Auto (RBC) [Mass/Vol]Or dered By: Roberto Andre on 02-27-2022 MCHC (RBC) [Mass/Vol] 32.6 g/dL 32-36 [facility] No Panel InformationOrdered By: Roberto Andre on 02-27-2022 Estimated GFR (MDRD) Amer 131 mL/min >60 [facility] Comment on above: GFR Calc Estimated GFR (MDRD) Non-Af Amer 108 mL/min >60 [facility] Comment on above: Non- GFR Calc Platelets bldOrdered By: Wan Andre on 02-27-2022 Platelets (Bld) [#/Vol] 275 10*3/uL 150-450 [facility] Serum or plasma calcium rajni urement (mass/volume)Ordered By: Roberto Andre on 02-27-2022 Calcium [Mass/Vol] 9.1 mg/dL 8.5-10.1 [facility] Serum or plasma creatinine m easurement (mass/volume)Ordered By: Roberto Ander on 02-27-2022 Creatinine [Mass/Vol] 0.58 mg/dL 0.55-1.02 [facility] Comment on above: The validity of the calculated GFR & GFRAA in patients over 70 years has not been determined. Clinical correlation is essential. Serum or plasma urea nitroge n measurement (mass/volume)Ordered By: Roberto Andre on 02-27-2022 Urea nitrogen [Mass/Vol] 17 mg/dL 7-18 [facility] Thin prep Papanicolaou smear with manual screeningOrdered By: Roberto Andre on 02-27-2022 Thin prep Papanicolaou smear with manual screening 5 5-15 [facility] Basophil percentageOrdered B y: Roberto Andre on 02-20-2022 Chloride [Moles/Vol] 100 mmol/L 98-107 [facility] Glucose [Mass/Vol] 89 mg/dL 74-106 [facility] Potassium [Moles/Vol] 3.9 mmol/L 3.5-5.1 [facility] Sodium [Moles/Vol] 136 mmol/L 136-145 [facility] WBC (Bld) [#/Vol] 6.6 10*3/uL 4.4-11.0 [facility] Blood erythrocytes count (nu mber/volume)Ordered By: Roberto Andre on 02-20-2022 RBC (Bld) [#/Vol] 4.21 10*6/uL 4.2-5.4 [facility] Blood hemoglobin measurement (mass/volume)Ordered By: Roberto Andre on 02-20-2022 Hemoglobin (Bld) [Mass/Vol] 12.3 g/dL 12.0-15.0 [facility] Blood manual differential co mment interpretation (narrative result)Ordered By: Roberto Andre on 02-20-2022 Manual differential comment Donnie (Bld) [Interp] See comment [facility] Comment on above: 1+ ANISOCYTOSIS Blood platelet mean volumeOr dered By: Roberto Andre on 02-20-2022 Platelet mean volume (Bld) [Entitic vol] 11.7 fL 6.2-12.0 [facility] Determination of erythrocyte mean corpuscular volume (MCV)Ordered By: Roberto Andre on 02-20-2022 MCV (RBC) [Entitic vol] 91.0 fL 81-99 [facility] Hematocrit Auto (Bld) [Volum e fraction]Ordered By: Roberto Andre on 02-20-2022 Hematocrit (Bld) [Volume fraction] 38.3 % 37-47 [facility] Laboratory - Chemistry and C hemistry - challengeOrdered By: Roberto Andre on 02-20-2022 CO2 [Moles/Vol] 29.0 mmol/L 21.0-32.0 [facility] Urea nitrogen/Creatinine [Mass ratio] 20.7 mg/mg 10-20 [facility] Laboratory - Hematology and Cell countsOrdered By: Roberto Andre on 02-20-2022 Erythrocyte distribution width (RBC) [Entitic vol] 66.1 fL 35.1-43.9 [facility] Erythrocyte distribution width (RBC) [Ratio] 19.8 % 11.6-14.6 [facility] MCH (RBC) [Entitic mass] 29.2 pg 27.0-32.0 [facility] MCHC Auto (RBC) [Mass/Vol]Or dered By: Roberto Andre on 02-20-2022 MCHC (RBC) [Mass/Vol] 32.1 g/dL 32-36 [facility] No Panel InformationOrdered By: Roberto Andre on 02-20-2022 Estimated GFR (MDRD) Amer 182 mL/min >60 [facility] Comment on above: GFR Calc Estimated GFR (MDRD) Non-Af Amer 150 mL/min >60 [facility] Comment on above: Non- GFR Calc Platelets bldOrdered By: Wan Andre on 02-20-2022 Platelets (Bld) [#/Vol] 325 10*3/uL 150-450 [facility] Serum or plasma calcium rajni urement (mass/volume)Ordered By: Roberto Andre on 02-20-2022 Calcium [Mass/Vol] 9.3 mg/dL 8.5-10.1 [facility] Serum or plasma creatinine m easurement (mass/volume)Ordered By: Roberto Andre on 02-20-2022 Creatinine [Mass/Vol] 0.44 mg/dL 0.55-1.02 [facility] Comment on above: The validity of the calculated GFR & GFRAA in patients over 70 years has not been determined. Clinical correlation is essential. Serum or plasma urea nitroge n measurement (mass/volume)Ordered By: Roberto Andre on 02-20-2022 Urea nitrogen [Mass/Vol] 9 mg/dL 7-18 [facility] Thin prep Papanicolaou smear with manual screeningOrdered By: Roberto Andre on 02-20-2022 Thin prep Papanicolaou smear with manual screening 7 5-15 [facility] Basophil percentageon 2021 Chloride [Moles/Vol] 106 mmol/L 98-107 [facility] Work Phone: Glucose [Mass/Vol] 78 mg/dL 74-106 [facility] Work Phone: [phone] Potassium [Moles/Vol] 3.8 mmol/L 3.5-5.1 [facility] Work Phone: [phone] Sodium [Moles/Vol] 140 mmol/L 136-145 [facility] Work Phone: [phone] WBC (Bld) [#/Vol] 5.2 10*3/uL 4.4-11.0 [facility] Work Phone: Blood erythrocytes count (nu mber/volume)on 02-13-2022 RBC (Bld) [#/Vol] 3.68 10*6/uL 4.2-5.4 [facility] Work Phone: Blood hemoglobin measurement (mass/volume)on 02-13-2022 Hemoglobin (Bld) [Mass/Vol] 10.7 g/dL 12.0-15.0 [facility] Work Phone: [phone] Blood platelet mean volumeon 02-13-2022 Platelet mean volume (Bld) [Entitic vol] 12.6 fL 6.2-12.0 [facility] Work Phone: [phone] Determination of erythrocyte mean corpuscular volume (MCV)on 02-13-2022 MCV (RBC) [Entitic vol] 90.5 fL 81-99 [facility] Work Phone: Hematocrit Auto (Bld) [Volum e fraction]on 02-13-2022 Hematocrit (Bld) [Volume fraction] 33.3 % 37-47 [facility] Work Phone: Laboratory - Chemistry and C hemistry - challengeon 02-13-2022 CO2 [Moles/Vol] 32.0 mmol/L 21.0-32.0 [facility] Work Phone: Urea nitrogen/Creatinine [Mass ratio] 28.9 mg/mg 10- [facility] Work Phone: [phone] Laboratory - Hematology and Cell countson 02-13-2022 Erythrocyte distribution width (RBC) [Entitic vol] 67.1 fL 35.1-43.9 [facility] Work Phone: [phone] Erythrocyte distribution width (RBC) [Ratio] 20.0 % 11.6-14.6 [facility] Work Phone: [phone] MCH (RBC) [Entitic mass] 29.1 pg 27.0-32.0 [facility] Work Phone: [phone] MCHC Auto (RBC) [Mass/Vol]on 02-13-2022 MCHC (RBC) [Mass/Vol] 32.1 g/dL 32-36 [facility] Work Phone: No Panel Informationon 02-13 Estimated GFR (MDRD) Amer 175 mL/min >60 [facility] Work Phone: Comment on above: GFR Calc Estimated GFR (MDRD) Non-Af Amer 144 mL/min >60 [facility] Work Phone: Comment on above: Non- GFR Calc Platelets bldon 02-13-2022 Platelets (Bld) [#/Vol] 258 10*3/uL 150-450 [facility] Work Phone: [phone] Serum or plasma calcium rajni urement (mass/volume)on 02-13-2022 Calcium [Mass/Vol] 9.1 mg/dL 8.5-10.1 [facility] Work Phone: [phone] Serum or plasma creatinine m easurement (mass/volume)on 02-13-2022 Creatinine [Mass/Vol] 0.45 mg/dL 0.55-1.02 [facility] Work Phone: Comment on above: The validity of the calculated GFR & GFRAA in patients over 70 years has not been determined. Clinical correlation is essential. Serum or plasma urea nitroge n measurement (mass/volume)on 02-13-2022 Urea nitrogen [Mass/Vol] 13 mg/dL 7-18 [facility] Work Phone: Thin prep Papanicolaou smear with manual screeningon 02-13-2022 Thin prep Papanicolaou smear with manual screening 2 5-15 [facility] Work Phone: Basophil percentageon 2021 Chloride [Moles/Vol] 105 mmol/L 98-[address] [facility] Work Phone: [phone] Glucose [Mass/Vol] 80 mg/dL 74-106 [facility] Work Phone: Potassium [Moles/Vol] 3.8 mmol/L 3.5-5.1 [facility] Work Phone: [phone] Sodium [Moles/Vol] 141 mmol/L 136-145 [facility] Work Phone: [phone] WBC (Bld) [#/Vol] 5.6 10*3/uL 4.4-11.0 [facility] Work Phone: Blood erythrocytes count (nu mber/volume)on 02-06-2022 RBC (Bld) [#/Vol] 3.76 10*6/uL 4.2-5.4 [facility] Work Phone: Blood hemoglobin measurement (mass/volume)on 02-06-2022 Hemoglobin (Bld) [Mass/Vol] 10.6 g/dL 12.0-15.0 [facility] Work Phone: Blood manual differential co mment interpretation (narrative result)on 02-06-2022 Manual differential comment Donnie (Bld) [Interp] COMMENT [facility] Work Phone: Comment on above: 1+ ANISO. Blood platelet mean volumeon 02-06-2022 Platelet mean volume (Bld) [Entitic vol] 12.8 fL 6.2-12.0 [facility] Work Phone: Determination of erythrocyte mean corpuscular volume (MCV)on 10-18-2022 MCV (RBC) [Entitic vol] 89.6 fL 81-99 [facility] Work Phone: [phone] Hematocrit Auto (Bld) [Volum e fraction]on 02-06-2022 Hematocrit (Bld) [Volume fraction] 33.7 % 37-47 [facility] Work Phone: [phone] Laboratory - Chemistry and C hemistry - challengeon 02-06-2022 CO2 [Moles/Vol] 28.0 mmol/L 21.0-32.0 [facility] Work Phone: [phone] Urea nitrogen/Creatinine [Mass ratio] 32.7 mg/mg 10-20 [facility] Work Phone: [phone] Laboratory - Hematology and Cell countson 02-06-2022 Erythrocyte distribution width (RBC) [Entitic vol] 66.9 fL 35.1-43.9 [facility] Work Phone: [phone] Erythrocyte distribution width (RBC) [Ratio] 20.2 % 11.6-14.6 [facility] Work Phone: [phone] MCH (RBC) [Entitic mass] 28.2 pg 27.0-32.0 [facility] Work Phone: [phone] MCHC Auto (RBC) [Mass/Vol]on 02-06-2022 MCHC (RBC) [Mass/Vol] 31.5 g/dL 32-36 [facility] Work Phone: No Panel Informationon 02-06 Estimated GFR (MDRD) Amer 158 mL/min >60 [facility] Work Phone: [phone] Comment on above: GFR Calc Estimated GFR (MDRD) Non-Af Amer 131 mL/min >60 [facility] Work Phone: [phone] Comment on above: Non- GFR Calc Platelets bldon 02-06-2022 Platelets (Bld) [#/Vol] 236 10*3/uL 150-450 [facility] [employer] Work Phone: [phone] Serum or plasma calcium rajni urement (mass/volume)on 02-06-2022 Calcium [Mass/Vol] 9.0 mg/dL 8.5-10.1 [facility] Work Phone: Serum or plasma creatinine m easurement (mass/volume)on 02-06-2022 Creatinine [Mass/Vol] 0.49 mg/dL 0.55-1.02 [facility] Work Phone: Comment on above: The validity of the calculated GFR & GFRAA in patients over 70 years has not been determined. Clinical correlation is essential. Serum or plasma urea nitroge n measurement (mass/volume)on 02-06-2022 Urea nitrogen [Mass/Vol] 16 mg/dL 11-06 [facility] Work Phone: [phone] Thin prep Papanicolaou smear with manual screeningon 02-06-2022 Thin prep Papanicolaou smear with manual screening 8 -15 [facility] Work Phone: Basophil percentageon 2021 Chloride [Moles/Vol] 104 mmol/L 98-107 [facility] Work Phone: Glucose [Mass/Vol] 83 mg/dL 74-106 [facility] Work Phone: Potassium [Moles/Vol] 3.9 mmol/L 3.5-5.1 [facility] Work Phone: Sodium [Moles/Vol] 139 mmol/L 136-145 [facility] Work Phone: WBC (Bld) [#/Vol] 7.0 10*3/uL 4.4-11.0 [facility] Work Phone: [phone] Blood erythrocytes count (nu mber/volume)on 01-30-2022 RBC (Bld) [#/Vol] 4.34 10*6/uL 4.2-5.4 [facility] Work Phone: Blood hemoglobin measurement (mass/volume)on 01-30-2022 Hemoglobin (Bld) [Mass/Vol] 12.0 g/dL 12.0-15.0 [facility] Work Phone: [phone] Blood platelet mean volumeon 01-30-2022 Platelet mean volume (Bld) [Entitic vol] 13.4 fL 6.2-12.0 [facility] Work Phone: Determination of erythrocyte mean corpuscular volume (MCV)on 01-30-2022 MCV (RBC) [Entitic vol] 90.1 fL 81-99 [facility] Work Phone: Hematocrit Auto (Bld) [Volum e fraction]on 01-30-2022 Hematocrit (Bld) [Volume fraction] 39.1 % 37-47 [facility] Work Phone: Laboratory - Chemistry and C hemistry - challengeon 01-30-2022 CO2 [Moles/Vol] 28.0 mmol/L 21.0-32.0 [facility] Work Phone: Urea nitrogen/Creatinine [Mass ratio] 17.5 mg/mg 10-20 [facility] Work Phone: Laboratory - Hematology and Cell countson 01-30-2022 Erythrocyte distribution width (RBC) [Entitic vol] 66.9 fL 35.1-43.9 [facility] Work Phone: Erythrocyte distribution width (RBC) [Ratio] 20.3 % 11.6-14.6 [facility] Work Phone: MCH (RBC) [Entitic mass] 27.6 pg 27.0-32.0 [facility] Work Phone: MCHC Auto (RBC) [Mass/Vol]on 01-30-2022 MCHC (RBC) [Mass/Vol] 30.7 g/dL 32-36 [facility] Work Phone: No Panel Informationon 01-30 Estimated GFR (MDRD) Amer 133 mL/min >60 [facility] Work Phone: Comment on above: GFR Calc Estimated GFR (MDRD) Non-Af Amer 110 mL/min >60 [facility] Work Phone: Comment on above: Non- GFR Calc Platelets bldon 01-30-2022 Platelets (Bld) [#/Vol] 249 10*3/uL 150-450 [facility] Work Phone: Serum or plasma calcium rajni urement (mass/volume)on 01-30-2022 Calcium [Mass/Vol] 8.9 mg/dL 8.5-10.1 [facility] Work Phone: [phone] Serum or plasma creatinine m easurement (mass/volume)on 01-30-2022 Creatinine [Mass/Vol] 0.57 mg/dL 0.55-1.02 [facility] Work Phone: [phone] Comment on above: The validity of the calculated GFR & GFRAA in patients over 70 years has not been determined. Clinical correlation is essential. Serum or plasma urea nitroge n measurement (mass/volume)on 01-30-2022 Urea nitrogen [Mass/Vol] 10 mg/dL 7-18 [facility] Work Phone: Thin prep Papanicolaou smear with manual screeningon 01-30-2022 Thin prep Papanicolaou smear with manual screening 7 5-15 [facility] Work Phone: Basophil percentageon 2021 Chloride [Moles/Vol] 106 mmol/L 98-107 [facility] Work Phone: Glucose [Mass/Vol] 92 mg/dL 74-106 [facility] Work Phone: Potassium [Moles/Vol] 3.2 mmol/L 3.5-5.1 [facility] Work Phone: Sodium [Moles/Vol] 142 mmol/L 136-145 [facility] Work Phone: [phone] WBC (Bld) [#/Vol] 7.6 10*3/uL 4.4-11.0 [facility] Work Phone: [phone] Blood erythrocytes count (nu mber/volume)on 01-22-2022 RBC (Bld) [#/Vol] 4.15 10*6/uL 4.2-5.4 [facility] Work Phone: [phone] Blood hemoglobin measurement (mass/volume)on 01-22-2022 Hemoglobin (Bld) [Mass/Vol] 11.4 g/dL 12.0-15.0 [facility] Work Phone: [phone] Blood platelet mean volumeon 01-22-2022 Platelet mean volume (Bld) [Entitic vol] 12.8 fL 6.2-12.0 [facility] Work Phone: [phone] Determination of erythrocyte mean corpuscular volume (MCV)on 01-22-2022 MCV (RBC) [Entitic vol] 88.0 fL 81-99 [facility] Work Phone: Hematocrit Auto (Bld) [Volum e fraction]on 01-22-2022 Hematocrit (Bld) [Volume fraction] 36.5 % 37-47 [facility] Work Phone: Laboratory - Chemistry and C hemistry - challengeon 01-22-2022 CO2 [Moles/Vol] 26.0 mmol/L 21.0-32.0 [facility] Work Phone: Magnesium [Mass/Vol] 1.9 mg/dL 1.6-2.6 [facility] Work Phone: [phone] Urea nitrogen/Creatinine [Mass ratio] 24.1 mg/mg 10-20 [facility] Work Phone: [phone] Laboratory - Hematology and Cell countson 01-22-2022 Erythrocyte distribution width (RBC) [Entitic vol] 63.7 fL 35.1-43.9 [facility] Work Phone: [phone] Erythrocyte distribution width (RBC) [Ratio] 19.9 % 11.6-14.6 [facility] Work Phone: [phone] MCH (RBC) [Entitic mass] 27.5 pg 27.0-32.0 [facility] Work Phone: [phone] MCHC Auto (RBC) [Mass/Vol]on 01-22-2022 MCHC (RBC) [Mass/Vol] 31.2 g/dL 32-36 [facility] Work Phone: No Panel Informationon 01-22 Estimated GFR (MDRD) Amer 130 mL/min >60 [facility] Work Phone: Comment on above: GFR Calc Estimated GFR (MDRD) Non-Af Amer 107 mL/min >60 [facility] Work Phone: Comment on above: Non- GFR Calc Thyroid Stimulating Hormone (TSH) 0.57 uIU/mL 0.358-3.74 [facility] Work Phone: Vitamin D 25-Hydroxy 39.5 ng/mL [facility] Work Phone: Comment on above: Vitamin D 25(OH) Sta tus Range Deficiency <20 ng/mL (50nmol/L) Insufficiency 20 - 30 ng/mL (50 - 75 nmol/L) Sufficiency 30 - 100 ng/mL (75 - 250 nmol/L) Toxicity >100 ng/mL (>250 nmol/L) Platelets bldon 01-22-2022 Platelets (Bld) [#/Vol] 263 10*3/uL 150-450 [facility] Work Phone: Serum or plasma calcium rajni urement (mass/volume)on 01-22-2022 Calcium [Mass/Vol] 8.5 mg/dL 8.5-10.1 [facility] Work Phone: Serum or plasma creatinine m easurement (mass/volume)on 01-22-2022 Creatinine [Mass/Vol] 0.58 mg/dL 0.55-1.02 [facility] Work Phone: Comment on above: The validity of the calculated GFR & GFRAA in patients over 70 years has not been determined. Clinical correlation is essential. Serum or plasma urea nitroge n measurement (mass/volume)on 01-22-2022 Urea nitrogen [Mass/Vol] 14 mg/dL 7-18 [facility] Work Phone: Thin prep Papanicolaou smear with manual screeningon 01-22-2022 Thin prep Papanicolaou smear with manual screening 10 5-15 [facility] Work Phone: Basophil percentageon 2021 Chloride [Moles/Vol] 104 mmol/L 98-107 [facility] Work Phone: Glucose [Mass/Vol] 89 mg/dL 74-106 [facility] Work Phone: [phone] Potassium [Moles/Vol] 3.8 mmol/L 3.5-5.1 [facility] Work Phone: [phone] Sodium [Moles/Vol] 139 mmol/L 136-145 [facility] Work Phone: [phone] WBC (Bld) [#/Vol] 6.8 10*3/uL 4.4-11.0 [facility] Work Phone: Blood erythrocytes count (nu mber/volume)on 01-16-2022 RBC (Bld) [#/Vol] 3.95 10*6/uL 4.2-5.4 [facility] Work [facility]: [phone] Blood hemoglobin measurement (mass/volume)on 01-16-2022 Hemoglobin (Bld) [Mass/Vol] 10.9 g/dL 12.0-15.0 [facility] Work Phone: Blood platelet mean volumeon 01-16-2022 Platelet mean volume (Bld) [Entitic vol] 12.9 fL 6.2-12.0 [facility] Work Phone: [phone] Determination of erythrocyte mean corpuscular volume (MCV)on 01-16-2022 MCV (RBC) [Entitic vol] 87.3 fL 81-99 [facility] Work Phone: [phone] Hematocrit Auto (Bld) [Volum e fraction]on 01-16-2022 Hematocrit (Bld) [Volume fraction] 34.5 % 37-47 [facility] Work Phone: Laboratory - Chemistry and C hemistry - challengeon 01-16-2022 CO2 [Moles/Vol] 28.0 mmol/L 21.0-32.0 [facility] Work Phone: Urea nitrogen/Creatinine [Mass ratio] 22.2 mg/mg 10-20 [facility] Work Phone: Laboratory - Hematology and Cell countson 01-16-2022 Erythrocyte distribution width (RBC) [Entitic vol] 60.9 fL 35.1-43.9 [facility] Work Phone: Erythrocyte distribution width (RBC) [Ratio] 18.9 % 11.6-14.6 [facility] Work Phone: MCH (RBC) [Entitic mass] 27.6 pg 27.0-32.0 [facility] Work Phone: [phone] MCHC Auto (RBC) [Mass/Vol]on 01-16-2022 MCHC (RBC) [Mass/Vol] 31.6 g/dL 32-36 [facility] Work Phone: No Panel Informationon 01-16 Estimated GFR (MDRD) Amer 142 mL/min >60 [facility] Work Phone: Comment on above: GFR Calc Estimated GFR (MDRD) Non-Af Amer 117 mL/min >60 [facility] Work Phone: Comment on above: Non- GFR Calc Platelets bldon 01-16-2022 Platelets (Bld) [#/Vol] 286 10*3/uL 150-450 [facility] Work Phone: Serum or plasma calcium rajni urement (mass/volume)on 01-16-2022 Calcium [Mass/Vol] 8.3 mg/dL 8.5-10.1 [facility] Work Phone: [phone] Serum or plasma creatinine m easurement (mass/volume)on 01-16-2022 Creatinine [Mass/Vol] 0.54 mg/dL 0.55-1.02 [facility] Work Phone: Comment on above: The validity of the calculated GFR & GFRAA in patients over 70 years has not been determined. Clinical correlation is essential. Serum or plasma urea nitroge n measurement (mass/volume)on 01-16-2022 Urea nitrogen [Mass/Vol] 12 mg/dL 7-18 [facility] Work Phone: Thin prep Papanicolaou smear with manual screeningon 01-16-2022 Thin prep Papanicolaou smear with manual screening 7 5-15 [facility] Work Phone: Basophil percentageon 2021 Chloride [Moles/Vol] 106 mmol/L 98-107 [facility] Work Phone: Glucose [Mass/Vol] 91 mg/dL 74-106 [facility] Work Phone: [phone] Potassium [Moles/Vol] 4.3 mmol/L 3.5-5.1 [facility]: Sodium [Moles/Vol] 140 mmol/L 136-145 [facility] Work Phone: [phone] WBC (Bld) [#/Vol] 14.6 10*3/uL 4.4-11.0 [facility] Work Phone: Blood erythrocytes count (nu mber/volume)on 01-09-2022 RBC (Bld) [#/Vol] 3.86 10*6/uL 4.2-5.4 [facility] Work Phone: Blood hemoglobin measurement (mass/volume)on 01-09-2022 Hemoglobin (Bld) [Mass/Vol] 10.6 g/dL 12.0-15.0 [facility] Work Phone: Blood platelet mean volumeon 01-09-2022 Platelet mean volume (Bld) [Entitic vol] 13.1 fL 6.2-12.0 [facility] Work Phone: CNOVon 01-09-2022 CNOV Normal [facility] Determination of erythrocyte mean corpuscular volume (MCV)on 01-09-2022 MCV (RBC) [Entitic vol] 88.1 fL 81-99 [facility] Work Phone: Hematocrit Auto (Bld) [Volum e fraction]on 01-09-2022 Hematocrit (Bld) [Volume fraction] 34.0 % 37-47 [facility] Work Phone: Laboratory - Chemistry and C hemistry - challengeon 01-09-2022 CO2 [Moles/Vol] 28.0 mmol/L 21.0-32.0 [facility] Work Phone: [phone] Urea nitrogen/Creatinine [Mass ratio] 24.5 mg/mg - [facility] Work Phone: [phone] Laboratory - Hematology and Cell countson 01-09-2022 Erythrocyte distribution width (RBC) [Entitic vol] 59.2 fL 35.1-43.9 [facility] Work Phone: [phone] Erythrocyte distribution width (RBC) [Ratio] 18.4 % 11.6-14.6 [facility] Work Phone: [phone] MCH (RBC) [Entitic mass] 27.5 pg 27.0-32.0 [facility] Work Phone: [phone] MCHC Auto (RBC) [Mass/Vol]on 01-09-2022 MCHC (RBC) [Mass/Vol] 31.2 g/dL 32-36 [facility] Work Phone: No Panel Informationon 01-09 Estimated GFR (MDRD) Amer 144 mL/min >60 [facility] Work Phone: Comment on above: GFR Calc Estimated GFR (MDRD) Non-Af Amer 119 mL/min >60 [facility] Work Phone: Comment on above: Non- GFR Calc Platelets bldon 01-09-2022 Platelets (Bld) [#/Vol] 220 10*3/uL 150-450 [facility] Work Phone: [phone] Serum or plasma calcium rajni urement (mass/volume)on 01-09-2022 Calcium [Mass/Vol] 8.6 mg/dL 8.5-10.1 [facility] Work Phone: [phone] Serum or plasma creatinine m easurement (mass/volume)on 01-09-2022 Creatinine [Mass/Vol] 0.53 mg/dL 0.55-1.02 [facility] Work Phone: [phone] Comment on above: The validity of the calculated GFR & GFRAA in patients over 70 years has not been determined. Clinical correlation is essential. Serum or plasma urea nitroge n measurement (mass/volume)on 01-09-2022 Urea nitrogen [Mass/Vol] 13 mg/dL 7-18 [facility] Work Phone: Thin prep Papanicolaou smear with manual screeningon 01-09-2022 Thin prep Papanicolaou smear with manual screening 6 5-15 [facility] Work Phone: [phone] MRI BRAIN WO/W IVCONon 01-04 [facility] Basophil percentageon 2021 Chloride [Moles/Vol] 107 mmol/L 98-107 [facility] Work Phone: Glucose [Mass/Vol] 89 mg/dL 74-106 [facility] Work Phone: [phone] Potassium [Moles/Vol] 4.0 mmol/L 3.5-5.1 [facility] Work Phone: [phone] Sodium [Moles/Vol] 141 mmol/L 136-145 [facility] Work Phone: WBC (Bld) [#/Vol] 6.8 10*3/uL 4.4-11.0 [facility] Work Phone: Blood erythrocytes count (nu mber/volume)on 01-02-2022 RBC (Bld) [#/Vol] 4.07 10*6/uL 4.2-5.4 [facility] Work Phone: Blood hemoglobin measurement (mass/volume)on 01-02-2022 Hemoglobin (Bld) [Mass/Vol] 11.5 g/dL 12.0-15.0 [facility] Work Phone: Blood platelet mean volumeon 01-02-2022 Platelet mean volume (Bld) [Entitic vol] 13.0 fL 6.2-12.0 [facility] Work Phone: Determination of erythrocyte mean corpuscular volume (MCV)on 01-02-2022 MCV (RBC) [Entitic vol] 90.4 fL 81-99 [facility] Work Phone: Hematocrit Auto (Bld) [Volum e fraction]on 01-02-2022 Hematocrit (Bld) [Volume fraction] 36.8 % 37-47 [facility] Work Phone: Laboratory - Chemistry and C hemistry - challengeon 01-02-2022 CO2 [Moles/Vol] 27.0 mmol/L 21.0-32.0 [facility] Work Phone: [phone] Urea nitrogen/Creatinine [Mass ratio] 15.7 mg/mg 10-20 [facility] Work Phone: Laboratory - Hematology and Cell countson 01-02-2022 Erythrocyte distribution width (RBC) [Entitic vol] 57.1 fL 35.1-43.9 [facility] Work Phone: [phone] Erythrocyte distribution width (RBC) [Ratio] 17.2 % 11.6-14.6 [facility] Work Phone: [phone] MCH (RBC) [Entitic mass] 28.3 pg 27.0-32.0 [facility] Work Phone: MCHC Auto (RBC) [Mass/Vol]on 01-02-2022 MCHC (RBC) [Mass/Vol] 31.3 g/dL 32-36 [facility] Work Phone: No Panel Informationon 01-02 Estimated GFR (MDRD) Amer 132 mL/min >60 [facility] Work Phone: Comment on above: GFR Calc Estimated GFR (MDRD) Non-Af Amer 109 mL/min >60 [facility] Work Phone: Comment on above: Non- GFR Calc Platelets bldon 01-02-2022 Platelets (Bld) [#/Vol] 274 10*3/uL 150-450 [facility] Work Phone: Serum or plasma calcium rajni urement (mass/volume)on 01-02-2022 Calcium [Mass/Vol] 9.7 mg/dL 8.5-10.1 [facility] Work Phone: Serum or plasma creatinine m easurement (mass/volume)on 01-02-2022 Creatinine [Mass/Vol] 0.58 mg/dL 0.55-1.02 [facility] Work Phone: Comment on above: The validity of the calculated GFR & GFRAA in patients over 70 years has not been determined. Clinical correlation is essential. Serum or plasma urea nitroge n measurement (mass/volume)on 01-02-2022 Urea nitrogen [Mass/Vol] 9 mg/dL 7-18 [facility] Work Phone: Thin prep Papanicolaou smear with manual screeningon 01-02-2022 Thin prep Papanicolaou smear with manual screening 7 5-15 [facility] Work Phone: Basophil percentageon 2021 Chloride [Moles/Vol] 104 mmol/L 98-107 [facility] Work Phone: Glucose [Mass/Vol] 77 mg/dL 74-106 [facility] Work Phone: Potassium [Moles/Vol] 4.1 mmol/L 3.5-5.1 [facility] Work Phone: Sodium [Moles/Vol] 140 mmol/L 136-145 [facility] Work Phone: WBC (Bld) [#/Vol] 7.0 10*3/uL 4.4-11.0 [facility] Work Phone: Blood erythrocytes count (nu mber/volume)on 12-26-2021 RBC (Bld) [#/Vol] 4.18 10*6/uL 4.2-5.4 [facility] Work Phone: Blood hemoglobin measurement (mass/volume)on 12-26-2021 Hemoglobin (Bld) [Mass/Vol] 12.5 g/dL 12.0-15.0 [facility] Work Phone: Blood platelet mean volumeon 12-26-2021 Platelet mean volume (Bld) [Entitic vol] 12.1 fL 6.2-12.0 [facility] Work Phone: [phone] Determination of erythrocyte mean corpuscular volume (MCV)on 12-26-2021 MCV (RBC) [Entitic vol] 96.9 fL 81-99 [facility] Work Phone: [phone] Hematocrit Auto (Bld) [Volum e fraction]on 12-26-2021 Hematocrit (Bld) [Volume fraction] 40.5 % 37-47 [facility] Work Phone: [phone] Laboratory - Chemistry and C hemistry - challengeon 12-26-2021 CO2 [Moles/Vol] 27.0 mmol/L 21.0-32.0 [facility] Work Phone: [phone] Urea nitrogen/Creatinine [Mass ratio] 18.7 mg/mg 10-20 [facility] Work Phone: [phone] Laboratory - Hematology and Cell countson 12-26-2021 Erythrocyte distribution width (RBC) [Entitic vol] 58.4 fL 35.1-43.9 [facility] Work Phone: [phone] Erythrocyte distribution width (RBC) [Ratio] 18.4 % 11.6-14.6 [facility] Work Phone: [phone] MCH (RBC) [Entitic mass] 29.9 pg 27.0-32.0 [facility] Work Phone: [phone] MCHC Auto (RBC) [Mass/Vol]on 12-26-2021 MCHC (RBC) [Mass/Vol] 30.9 g/dL 32-36 [facility] Work Phone: [phone] Panel Informationon 12-26 Estimated GFR (MDRD) Amer 143 mL/min >60 [facility] Work Phone: [phone] Comment on above: GFR Calc Estimated GFR (MDRD) Non-Af Amer 118 mL/min >60 [facility] Work Phone: [phone] Comment on above: Non- GFR Calc Platelets bldon 12-26-2021 Platelets (Bld) [#/Vol] 286 10*3/uL 150-450 [facility] Work Phone: Serum or plasma calcium rajni urement (mass/volume)on 12-26-2021 Calcium [Mass/Vol] 9.8 mg/dL 8.5-10.1 [facility] Work Phone: Serum or plasma creatinine m easurement (mass/volume)on 12-26-2021 Creatinine [Mass/Vol] 0.54 mg/dL 0.55-1.02 [facility] Work Phone: Comment on above: The validity of the calculated GFR & GFRAA in patients over 70 years has not been determined. Clinical correlation is essential. Serum or plasma urea nitroge n measurement (mass/volume)on 12-26-2021 Urea nitrogen [Mass/Vol] 10 mg/dL 7-18 [facility] Work Phone: Thin prep Papanicolaou smear with manual screeningon 12-26-2021 Thin prep Papanicolaou smear with manual screening 9 5-15 [facility] Work Phone: Basophil percentageon 2021 Chloride [Moles/Vol] 108 mmol/L 98-107 [facility] Work Phone: Glucose [Mass/Vol] 91 mg/dL 74-106 [facility] Work Phone: [phone] Potassium [Moles/Vol] 3.5 mmol/L 3.5-5.1 [facility] Work Phone: Sodium [Moles/Vol] 142 mmol/L 136-145 [facility] Work Phone: [phone] WBC (Bld) [#/Vol] 7.1 10*3/uL 4.4-11.0 [facility] Work Phone: Blood erythrocytes count (nu mber/volume)on 12-20-2021 RBC (Bld) [#/Vol] 3.81 10*6/uL 4.2-5.4 [facility] Work Phone: [phone] Blood hemoglobin measurement (mass/volume)on 12-20-2021 Hemoglobin (Bld) [Mass/Vol] 10.6 g/dL 12.0-15.0 [facility] Work Phone: [phone] Blood platelet mean volumeon 12-20-2021 Platelet mean volume (Bld) [Entitic vol] 13.0 fL 6.2-12.0 [facility] Work Phone: [phone] Determination of erythrocyte mean corpuscular volume (MCV)on 12-20-2021 MCV (RBC) [Entitic vol] 89.0 fL 81-99 [facility] Work Phone: [phone] Hematocrit Auto (Bld) [Volum e fraction]on 12-20-2021 Hematocrit (Bld) [Volume fraction] 33.9 % 37-47 [facility] Work Phone: [phone] Laboratory - Chemistry and C hemistry - challengeon 12-20-2021 CO2 [Moles/Vol] 27.0 mmol/L 21.0-32.0 [facility] Work Phone: [phone] Urea nitrogen/Creatinine [Mass ratio] 19.1 mg/mg 10-20 [facility] Work Phone: [phone] Laboratory - Hematology and Cell countson 12-20-2021 Erythrocyte distribution width (RBC) [Entitic vol] 51.5 fL 35.1-43.9 [facility] Work Phone: [phone] Erythrocyte distribution width (RBC) [Ratio] 15.8 % 11.6-14.6 [facility] Work Phone: [phone] MCH (RBC) [Entitic mass] 27.8 pg 27.0-32.0 [facility] Work Phone: [phone] MCHC Auto (RBC) [Mass/Vol]on 12-20-2021 MCHC (RBC) [Mass/Vol] 31.3 g/dL 32-36 [facility]: [phone] No Panel Informationon 12-20 Estimated GFR (MDRD) Amer 132 mL/min >60 [facility] Work Phone: [phone] Comment on above: GFR Calc Estimated GFR (MDRD) Non-Af Amer 109 mL/min >60 [facility] Work Phone: Comment on above: Non- GFR Calc Platelets bldon 12-20-2021 Platelets (Bld) [#/Vol] 286 10*3/uL 150-450 [facility] Work Phone: Serum or plasma calcium rajni urement (mass/volume)on 12-20-2021 Calcium [Mass/Vol] 8.9 mg/dL 8.5-10.1 [facility] Work Phone: Serum or plasma creatinine m easurement (mass/volume)on 12-20-2021 Creatinine [Mass/Vol] 0.58 mg/dL 0.55-1.02 [facility] Work Phone: Comment on above: The validity of the calculated GFR & GFRAA in patients over 70 years has not been determined. Clinical correlation is essential. Serum or plasma urea nitroge n measurement (mass/volume)on 12-20-2021 Urea nitrogen [Mass/Vol] 11 mg/dL 7-18 [facility] Work Phone: Thin prep Papanicolaou smear with manual screeningon 12-20-2021 Thin prep Papanicolaou smear with manual screening 7 5-15 [facility] Work Phone: Basophil percentageon 2021 Basophil percentage 10-25 SEEN /hpf 0-5 [facility] Work Phone: Bilirubin Test strip Ql (U)o n 12-18-2021 Bilirubin Ql (U) Negative Negative [facility] Work Phone: Ketones Test strip Ql (U)on 12-18-2021 Ketones Ql (U) Negative Negative [facility] Work Phone: Mucus LM Ql (Urine sed)on Mucus Ql (Urine sed) 0 SEEN /hpf [facility] Work Phone: Nitrite Test strip Ql (U)on 12-18-2021 Nitrite Ql (U) Negative Negative [facility] Work Phone: Protein Test strip Ql (U)on 12-18-2021 Protein Ql (U) Negative Negative [facility] Work Phone: Squamous epithelial cells de tection in urine sediment by light microscopyon 12-18-2021 Epithelial cells.squamous LM Ql (Urine sed) 0 SEEN /hpf 5-10 [facility] Work Phone: Urine blood detectionon 11-21 RBC Ql (U) 10 /ul Negative [facility] Work Phone: [phone] RBC Ql (U) 0 SEEN /hpf 0-5 [facility] Work Phone: Urine clarityon 12-18-2021 Clarity (U) Clear Clear [facility] Work Phone: Urine color determinationon 12-18-2021 Color (U) Yellow Yellow [facility] Work Phone: Urine glucose detectionon Glucose Ql (U) Normal mg/dl Normal [facility] Work Phone: Urine leukocyte esterase det ection by dipstickon 12-18-2021 Leukocyte esterase Test strip Ql (U) 500 /ul Negative [facility] Work Phone: Urine pHon 12-18-2021 pH (U) 6.0 [pH] 5.0 - 8.0 [facility] Work Phone: Urine sediment bacteria coun t by microscopy (number/high power field)on 12-18-2021 Bacteria LM.HPF (Urine sed) [#/Area] 2 /[HPF] None Seen [facility] Work Phone: Urine specific gravity measu rementon 12-18-2021 Specific gravity (U) [Rel density] 1.020 1.002-1.030 [facility] Work Phone: Urobilinogen Auto test strip Ql (U)on 12-18-2021 Urobilinogen Ql (U) Normal mg/dl Normal [facility] Work Phone: Basophil percentageon 2021 Chloride [Moles/Vol] 106 mmol/L 98-107 [facility] Work Phone: Glucose [Mass/Vol] 85 mg/dL 74-106 [facility] Work Phone: [phone] Potassium [Moles/Vol] 3.5 mmol/L 3.5-5.1 [facility] Work Phone: [phone] Sodium [Moles/Vol] 140 mmol/L 136-145 [facility] Work Phone: [phone] WBC (Bld) [#/Vol] 8.8 10*3/uL 4.4-11.0 [facility] Work Phone: [phone] Blood erythrocytes count (nu mber/volume)on 12-12-2021 RBC (Bld) [#/Vol] 4.43 10*6/uL 4.2-5.4 [facility] Work Phone: [phone] Blood hemoglobin measurement (mass/volume)on 12-12-2021 Hemoglobin (Bld) [Mass/Vol] 12.3 g/dL 12.0-15.0 [facility] Work Phone: [phone] Blood platelet mean volumeon 12-12-2021 Platelet mean volume (Bld) [Entitic vol] 12.8 fL 6.2-12.0 [facility] Work Phone: [phone] Determination of erythrocyte mean corpuscular volume (MCV)on 12-12-2021 MCV (RBC) [Entitic vol] 87.6 fL 81-99 [facility] Work Phone: [phone] Hematocrit Auto (Bld) [Volum e fraction]on 12-12-2021 Hematocrit (Bld) [Volume fraction] 38.8 % 37-47 [facility] Work Phone: [phone] Laboratory - Chemistry and C hemistry - challengeon 12-12-2021 CO2 [Moles/Vol] 27.0 mmol/L 21.0-32.0 [facility] Work Phone: [phone] Urea nitrogen/Creatinine [Mass ratio] 18.6 mg/mg 10-20 [facility] Work Phone: [phone] Laboratory - Hematology and Cell countson 12-12-2021 Erythrocyte distribution width (RBC) [Entitic vol] 48.2 fL 35.1-43.9 [facility] Work Phone: Erythrocyte distribution width (RBC) [Ratio] 14.9 % 11.6-14.6 [facility] Work Phone: MCH (RBC) [Entitic mass] 27.8 pg 27.0-32.0 [facility] Work Phone: MCHC Auto (RBC) [Mass/Vol]on 12-12-2021 MCHC (RBC) [Mass/Vol] 31.7 g/dL 32-36 [facility] Work Phone: No Panel Informationon 12-12 Estimated GFR (MDRD) Amer 142 mL/min >60 [facility] Work Phone: Comment on above: GFR Calc Estimated GFR (MDRD) Non-Af Amer 117 mL/min >60 [facility] Work Phone: Comment on above: Non- GFR Calc Platelets bldon 12-12-2021 Platelets (Bld) [#/Vol] 354 10*3/uL 150-450 [facility] Work Phone: Serum or plasma calcium rajni urement (mass/volume)on 12-12-2021 Calcium [Mass/Vol] 9.8 mg/dL 8.5-10.1 [facility] Work Phone: Serum or plasma creatinine m easurement (mass/volume)on 12-12-2021 Creatinine [Mass/Vol] 0.54 mg/dL 0.55-1.02 [facility] Work Phone: Comment on above: The validity of the calculated GFR & GFRAA in patients over 70 years has not been determined. Clinical correlation is essential. Serum or plasma urea nitroge n measurement (mass/volume)on 12-12-2021 Urea nitrogen [Mass/Vol] 10 mg/dL 7-18 [facility] Work Phone: Thin prep Papanicolaou smear with manual screeningon 12-12-2021 Thin prep Papanicolaou smear with manual screening 7 5-15 [facility] Work Phone: Basophil percentageon 2021 Chloride [Moles/Vol] 104 mmol/L 98-107 [facility] Work Phone: Glucose [Mass/Vol] 100 mg/dL 74-106 [facility] Work Phone: Comment on above: Fasting Glucose resu lt from 100 to 125 mg/dL suggests IMPAIRED HOMEOSTASIS per A.D.A. criteria. Potassium [Moles/Vol] 3.8 mmol/L 3.5-5.1 [facility] Work Phone: Sodium [Moles/Vol] 138 mmol/L 136-145 [facility] Work Phone: WBC (Bld) [#/Vol] 10.0 10*3/uL 4.4-11.0 [facility] Work Phone: Blood erythrocytes count (nu mber/volume)on 12-05-2021 RBC (Bld) [#/Vol] 3.74 10*6/uL 4.2-5.4 [facility] Work Phone: Blood hemoglobin measurement (mass/volume)on 12-05-2021 Hemoglobin (Bld) [Mass/Vol] 10.8 g/dL 12.0-15.0 [facility] Work Phone: Blood platelet mean volumeon 12-05-2021 Platelet mean volume (Bld) [Entitic vol] 12.0 fL 6.2-12.0 [facility] Work Phone: [phone] Determination of erythrocyte mean corpuscular volume (MCV)on 12-05-2021 MCV (RBC) [Entitic vol] 90.1 fL 81-99 [address] [facility] Work Phone: [phone] Hematocrit Auto (Bld) [Volum e fraction]on 12-05-2021 Hematocrit (Bld) [Volume fraction] 33.7 % 37-47 [facility] Work Phone: Laboratory - Chemistry and C hemistry - challengeon 12-05-2021 CO2 [Moles/Vol] 26.0 mmol/L 21.0-32.0 [facility] Work Phone: Urea nitrogen/Creatinine [Mass ratio] 20.2 mg/mg 10-20 [facility] Work Phone: [phone] Laboratory - Hematology and Cell countson 12-05-2021 Erythrocyte distribution width (RBC) [Entitic vol] 48.7 fL 35.1-43.9 [facility] Work Phone: Erythrocyte distribution width (RBC) [Ratio] 14.6 % 11.6-14.6 [facility] Work Phone: MCH (RBC) [Entitic mass] 28.9 pg 27.0-32.0 [facility] Work Phone: [phone] MCHC Auto (RBC) [Mass/Vol]on 12-05-2021 MCHC (RBC) [Mass/Vol] 32.0 g/dL 32-36 [facility] Work Phone: No Panel Informationon 12-05 Estimated GFR (MDRD) Amer 157 mL/min >60 [facility] Work Phone: Comment on above: GFR Calc Estimated GFR (MDRD) Non-Af Amer 130 mL/min >60 [facility] Work Phone: Comment on above: Non- GFR Calc Platelets bldon 12-05-2021 Platelets (Bld) [#/Vol] 360 10*3/uL 150-450 [facility] Work Phone: [phone] Serum or plasma calcium rajni urement (mass/volume)on 12-05-2021 Calcium [Mass/Vol] 9.9 mg/dL 8.5-10.1 [facility] Work Phone: [phone] Serum or plasma creatinine m easurement (mass/volume)on 12-05-2021 Creatinine [Mass/Vol] 0.49 mg/dL 0.55-1.02 [facility] Work Phone: Comment on above: The validity of the calculated GFR & GFRAA in patients over 70 years has not been determined. Clinical correlation is essential. Serum or plasma urea nitroge n measurement (mass/volume)on 12-05-2021 Urea nitrogen [Mass/Vol] 10 mg/dL 7-18 [facility] Work Phone: Thin prep Papanicolaou smear with manual screeningon 12-05-2021 Thin prep Papanicolaou smear with manual screening 8 5-15 [facility] Work Phone: Bilirubin Test strip Ql (U)o n 12-03-2021 Bilirubin Ql (U) Negative Negative [facility] Work Phone: Ketones Test strip Ql (U)on 12-03-2021 Ketones Ql (U) 5 mg/dl Negative [facility] Work Phone: Nitrite Test strip Ql (U)on 12-03-2021 Nitrite Ql (U) Positive Negative [facility] Work Phone: Protein Test strip Ql (U)on 12-03-2021 Protein Ql (U) 30 mg/dl Negative [facility] Work Phone: Urine blood detectionon 11-20 RBC Ql (U) 50 /ul Negative [facility] Work Phone: Urine clarityon 12-03-2021 Clarity (U) Cloudy Clear [facility] Work Phone: Urine color determinationon 12-03-2021 Color (U) Straw Yellow [facility] Work Phone: Urine glucose detectionon Glucose Ql (U) Normal mg/dl Normal [facility] Work Phone: Urine leukocyte esterase det ection by dipstickon 12-03-2021 Leukocyte esterase Test strip Ql (U) 500 /ul Negative [facility] Work Phone: Urine pHon 12-03-2021 pH (U) 6.0 [pH] 5.0 - 8.0 [facility] Work Phone: Urine specific gravity measu rementon 12-03-2021 Specific gravity (U) [Rel density] 1.010 1.002-1.030 [facility] Work Phone: Urobilinogen Auto test strip Ql (U)on 12-03-2021 Urobilinogen Ql (U) Normal mg/dl Normal [facility] Work Phone: Basophil percentageon 2021 Chloride [Moles/Vol] 101 mmol/L 98-107 [facility] Work Phone: Glucose [Mass/Vol] 107 mg/dL 74-106 [facility] Work Phone: Comment on above: Fasting Glucose resu lt from 100 to 125 mg/dL suggests IMPAIRED HOMEOSTASIS per A.D.A. criteria. Potassium [Moles/Vol] 3.6 mmol/L 3.5-5.1 [facility] Work Phone: Sodium [Moles/Vol] 136 mmol/L 136-145 [facility] Work Phone: Laboratory - Chemistry and C hemistry - challengeon 12-01-2021 CO2 [Moles/Vol] 29.0 mmol/L 21.0-32.0 [facility] Work Phone: Urea nitrogen/Creatinine [Mass ratio] 24.2 mg/mg 10-20 [facility] Work Phone: No Panel Informationon 12-01 Estimated GFR (MDRD) Amer 249 mL/min >60 [facility] Work Phone: Comment on above: GFR Calc Estimated GFR (MDRD) Non-Af Amer 206 mL/min >60 [facility] Work Phone: Comment on above: Non- GFR Calc Serum or plasma calcium rajni urement (mass/volume)on 12-01-2021 Calcium [Mass/Vol] 9.0 mg/dL 8.5-10.1 [facility] Work Phone: Serum or plasma creatinine m easurement (mass/volume)on 12-01-2021 Creatinine [Mass/Vol] 0.33 mg/dL 0.55-1.02 [facility] Work Phone: Comment on above: The validity of the calculated GFR & GFRAA in patients over 70 years has not been determined. Clinical correlation is essential. Serum or plasma urea nitroge n measurement (mass/volume)on 12-01-2021 Urea nitrogen [Mass/Vol] 8 mg/dL 7-18 [facility] Work Phone: Thin prep Papanicolaou smear with manual screeningon 12-01-2021 Thin prep Papanicolaou smear with manual screening 6 5-15 [facility] Work Phone: Basophil percentageon 2021 Chloride [Moles/Vol] 100 mmol/L 98-107 [facility] Work Phone: [phone] Glucose [Mass/Vol] 81 mg/dL 74-106 [facility] Work Phone: Potassium [Moles/Vol] 2.7 mmol/L 3.5-5.1 [facility] Work Phone: Comment on above: Critical Result(s) C alled at: 09:58:37 11/28/2021 by: Rosaura May to Christina. Results read back by same. Sodium [Moles/Vol] 134 mmol/L 136-145 [facility] Work Phone: WBC (Bld) [#/Vol] 9.7 10*3/uL 4.4-11.0 [facility] Work Phone: [phone] Blood erythrocytes count (nu mber/volume)on 11-28-2021 RBC (Bld) [#/Vol] 3.97 10*6/uL 4.2-5.4 [facility] Work Phone: [phone] Blood hemoglobin measurement (mass/volume)on 11-28-2021 Hemoglobin (Bld) [Mass/Vol] 11.4 g/dL 12.0-15.0 [facility] Work Phone: [phone] Blood platelet mean volumeon 11-28-2021 Platelet mean volume (Bld) [Entitic vol] 11.8 fL 6.2-12.0 [facility] Work Phone: [phone] Determination of erythrocyte mean corpuscular volume (MCV)on 11-28-2021 MCV (RBC) [Entitic vol] 88.7 fL 81-99 [facility] Work Phone: [phone] Hematocrit Auto (Bld) [Volum e fraction]on 11-28-2021 Hematocrit (Bld) [Volume fraction] 35.2 % 37-47 [facility] Work Phone: [phone] Laboratory - Chemistry and C hemistry - challengeon 11-28-2021 CO2 [Moles/Vol] 25.0 mmol/L 21.0-32.0 [facility] Work Phone: [phone] Urea nitrogen/Creatinine [Mass ratio] 10.9 mg/mg 10-20 [facility] Work Phone: [phone] Laboratory - Hematology and Cell countson 11-28-2021 Erythrocyte distribution width (RBC) [Entitic vol] 45.2 fL 35.1-43.9 [facility] Work Phone: [phone] Erythrocyte distribution width (RBC) [Ratio] 13.9 % 11.6-14.6 [facility] Work Phone: [phone] MCH (RBC) [Entitic mass] 28.7 pg 27.0-32.0 [facility] Work Phone: [phone] MCHC Auto (RBC) [Mass/Vol]on 11-28-2021 MCHC (RBC) [Mass/Vol] 32.4 g/dL 32-36 [facility] Work Phone: [phone] No Panel Informationon 11-28 Estimated GFR (MDRD) Amer 171 mL/min >60 [facility] Work Phone: [phone] Comment on above: GFR Calc Estimated GFR (MDRD) Non-Af Amer 141 mL/min >60 [facility] Work Phone: [phone] Comment on above: Non- GFR Calc Platelets bldon 11-28-2021 Platelets (Bld) [#/Vol] 339 10*3/uL 150-450 [facility] Work Phone: [phone] Serum or plasma calcium rajni urement (mass/volume)on 11-28-2021 Calcium [Mass/Vol] 9.1 mg/dL 8.5-10.1 [facility] Work Phone: Serum or plasma creatinine m easurement (mass/volume)on 11-28-2021 Creatinine [Mass/Vol] 0.46 mg/dL 0.55-1.02 [facility] Work Phone: Comment on above: The validity of the calculated GFR & GFRAA in patients over 70 years has not been determined. Clinical correlation is essential. Serum or plasma urea nitroge n measurement (mass/volume)on 11-28-2021 Urea nitrogen [Mass/Vol] 5 mg/dL 7-18 [facility] Work Phone: Thin prep Papanicolaou smear with manual screeningon 11-28-2021 Thin prep Papanicolaou smear with manual screening 9 5-15 [facility] Work Phone: Basophil percentageon 2021 Chloride [Moles/Vol] 102 mmol/L 98-107 [facility] Work Phone: Glucose [Mass/Vol] 103 mg/dL 74-106 [facility] Work Phone: Comment on above: Fasting Glucose resu lt from 100 to 125 mg/dL suggests IMPAIRED HOMEOSTASIS per A.D.A. criteria. Potassium [Moles/Vol] 3.2 mmol/L 3.5-5.1 [facility] Work Phone: Sodium [Moles/Vol] 136 mmol/L 136-145 [facility] Work Phone: [phone] WBC (Bld) [#/Vol] 9.2 10*3/uL 4.4-11.0 [facility] Work Phone: [phone] Blood erythrocytes count (nu mber/volume)on 11-21-2021 RBC (Bld) [#/Vol] 3.66 10*6/uL 4.2-5.4 [facility] Work Phone: [phone] Blood hemoglobin measurement (mass/volume)on 11-21-2021 Hemoglobin (Bld) [Mass/Vol] 10.6 g/dL 12.0-15.0 [facility] Work Phone: [phone] Blood platelet mean volumeon 11-21-2021 Platelet mean volume (Bld) [Entitic vol] 11.6 fL 6.2-12.0 [facility] Work Phone: [phone] Determination of erythrocyte mean corpuscular volume (MCV)on 11-21-2021 MCV (RBC) [Entitic vol] 91.8 fL 81-99 [facility] Work Phone: [phone] Hematocrit Auto (Bld) [Volum e fraction]on 11-21-2021 Hematocrit (Bld) [Volume fraction] 33.6 % 37-47 [facility] Work Phone: [phone] Laboratory - Chemistry and C hemistry - challengeon 11-21-2021 CO2 [Moles/Vol] 30.0 mmol/L 21.0-32.0 [facility] Work Phone: [phone] Urea nitrogen/Creatinine [Mass ratio] 14.3 mg/mg 10-20 [facility] Work Phone: [phone] Laboratory - Hematology and Cell countson 11-21-2021 Erythrocyte distribution width (RBC) [Entitic vol] 48.1 fL 35.1-43.9 [facility] Work Phone: [phone] Erythrocyte distribution width (RBC) [Ratio] 14.2 % 11.6-14.6 [facility] Work Phone: [phone] MCH (RBC) [Entitic mass] 29.0 pg 27.0-32.0 [facility] Work Phone: [phone] MCHC Auto (RBC) [Mass/Vol]on 11-21-2021 MCHC (RBC) [Mass/Vol] 31.5 g/dL 32-36 [facility] Work Phone: [phone] No Panel Informationon 11-21 Estimated GFR (MDRD) Amer 189 mL/min >60 [facility] Work Phone: [phone] Comment on above: GFR Calc Estimated GFR (MDRD) Non-Af Amer 156 mL/min >60 [facility] Work Phone: Comment on above: Non- GFR Calc Platelets bldon 11-21-2021 Platelets (Bld) [#/Vol] 382 10*3/uL 150-450 [facility] Work Phone: Serum or plasma calcium rajni urement (mass/volume)on 11-21-2021 Calcium [Mass/Vol] 9.2 mg/dL 8.5-10.1 [facility] Work Phone: Serum or plasma creatinine m easurement (mass/volume)on 11-21-2021 Creatinine [Mass/Vol] 0.42 mg/dL 0.55-1.02 [facility] Work Phone: Comment on above: The validity of the calculated GFR & GFRAA in patients over 70 years has not been determined. Clinical correlation is essential. Serum or plasma urea nitroge n measurement (mass/volume)on 11-21-2021 Urea nitrogen [Mass/Vol] 6 mg/dL 7-18 [facility] Work Phone: Thin prep Papanicolaou smear with manual screeningon 11-21-2021 Thin prep Papanicolaou smear with manual screening 4 5-15 [facility] Work Phone: Basophil percentageon 2021 Chloride [Moles/Vol] 101 mmol/L 98-107 [facility] Work Phone: Glucose [Mass/Vol] 94 mg/dL 74-106 [facility] Work Phone: [phone] Potassium [Moles/Vol] 4.1 mmol/L 3.5-5.1 [facility] Work Phone: [phone] Sodium [Moles/Vol] 136 mmol/L 136-145 [facility] Work Phone: [phone] WBC (Bld) [#/Vol] 10.6 10*3/uL 4.4-11.0 [facility] Work Phone: Blood erythrocytes count (nu mber/volume)on 11-14-2021 RBC (Bld) [#/Vol] 3.93 10*6/uL 4.2-5.4 [facility] Work Phone: [phone] Blood hemoglobin measurement (mass/volume)on 11-14-2021 Hemoglobin (Bld) [Mass/Vol] 11.6 g/dL 12.0-15.0 [facility] Work Phone: [phone] Blood platelet mean volumeon 11-14-2021 Platelet mean volume (Bld) [Entitic vol] 11.8 fL 6.2-12.0 [facility] Work Phone: [phone] Determination of erythrocyte mean corpuscular volume (MCV)on 11-14-2021 MCV (RBC) [Entitic vol] 96.2 fL 81-99 [facility] Work Phone: [phone] Hematocrit Auto (Bld) [Volum e fraction]on 11-14-2021 Hematocrit (Bld) [Volume fraction] 37.8 % 37-47 [facility] Work Phone: [phone] Laboratory - Chemistry and C hemistry - challengeon 11-14-2021 CO2 [Moles/Vol] 26.0 mmol/L 21.0-32.0 [facility] Work Phone: [phone] Urea nitrogen/Creatinine [Mass ratio] 11.9 mg/mg 10-20 [facility] Work Phone: [phone] Laboratory - Hematology and Cell countson 11-14-2021 Erythrocyte distribution width (RBC) [Entitic vol] 51.3 fL 35.1-43.9 [facility] Work Phone: [phone] Erythrocyte distribution width (RBC) [Ratio] 14.5 % 11.6-14.6 [facility] Work Phone: [phone] MCH (RBC) [Entitic mass] 29.5 pg 27.0-32.0 [facility] Work Phone: [phone] MCHC Auto (RBC) [Mass/Vol]on 11-14-2021 MCHC (RBC) [Mass/Vol] 30.7 g/dL 32-36 [facility] Work [facility]: No Panel Informationon 11-14 Estimated GFR (MDRD) Amer 153 mL/min >60 [facility] Work Phone: Comment on above: GFR Calc Estimated GFR (MDRD) Non-Af Amer 126 mL/min >60 [facility] Work Phone: Comment on above: Non- GFR Calc Platelets bldon 11-14-2021 Platelets (Bld) [#/Vol] 473 10*3/uL 150-450 [facility] Work Phone: Serum or plasma calcium rajni urement (mass/volume)on 11-14-2021 Calcium [Mass/Vol] 9.7 mg/dL 8.5-10.1 [facility] Work Phone: Serum or plasma creatinine m easurement (mass/volume)on 11-14-2021 Creatinine [Mass/Vol] 0.50 mg/dL 0.55-1.02 [facility] Work Phone: Comment on above: The validity of the calculated GFR & GFRAA in patients over 70 years has not been determined. Clinical correlation is essential. Serum or plasma urea nitroge n measurement (mass/volume)on 11-14-2021 Urea nitrogen [Mass/Vol] 6 mg/dL 7-18 [facility] Work Phone: Thin prep Papanicolaou smear with manual screeningon 11-14-2021 Thin prep Papanicolaou smear with manual screening 9 5-15 [facility] Work Phone: Basophil percentageon 2021 Basophil percentage 0-5 SEEN /hpf 0-5 [facility] Work Phone: Bilirubin Test strip Ql (U)o n 11-09-2021 Bilirubin Ql (U) Negative Negative [facility] Work Phone: [phone] Ketones Test strip Ql (U)on 11-09-2021 Ketones Ql (U) Negative Negative [facility] Work Phone: Mucus LM Ql (Urine sed)on Mucus Ql (Urine sed) 0 SEEN /hpf [facility] Work Phone: Nitrite Test strip Ql (U)on 11-09-2021 Nitrite Ql (U) Positive Negative [facility] Work Phone: Protein Test strip Ql (U)on 11-09-2021 Protein Ql (U) Negative Negative [facility] Work Phone: Squamous epithelial cells de tection in urine sediment by light microscopyon 11-09-2021 Epithelial cells.squamous LM Ql (Urine sed) 0-5 SEEN /hpf 5-10 [facility] Work Phone: Urine blood detectionon 10-21 RBC Ql (U) 10 /ul Negative [facility] Work Phone: RBC Ql (U) 0 SEEN /hpf 0-5 [facility] Work Phone: Urine clarityon 11-09-2021 Clarity (U) Clear Clear [facility] Work Phone: Urine color determinationon 11-09-2021 Color (U) Yellow Yellow [facility] Work Phone: Urine glucose detectionon Glucose Ql (U) Normal mg/dl Normal [facility] Work Phone: Urine leukocyte esterase det ection by dipstickon 11-09-2021 Leukocyte esterase Test strip Ql (U) 500 /ul Negative [facility] Work Phone: Urine pHon 11-09-2021 pH (U) 7.0 [pH] 5.0 - 8.0 [facility] Work Phone: Urine sediment bacteria coun t by microscopy (number/high power field)on 11-09-2021 Bacteria LM.HPF (Urine sed) [#/Area] 0 /[HPF] None Seen [facility] Work Phone: Urine specific gravity measu rementon 11-09-2021 Specific gravity (U) [Rel density] 1.010 1.002-1.030 [facility] Work Phone: Urobilinogen Auto test strip Ql (U)on 11-09-2021 Urobilinogen Ql (U) Normal mg/dl Normal [facility] Work Phone: Basophil percentageon 2021 Chloride [Moles/Vol] 102 mmol/L 98-107 [facility] Work Phone: Glucose [Mass/Vol] 113 mg/dL 74-106 [facility] Work Phone: [phone] Comment on above: Fasting Glucose resu lt from 100 to 125 mg/dL suggests IMPAIRED HOMEOSTASIS per A.D.A. criteria. Potassium [Moles/Vol] 3.4 mmol/L 3.5-5.1 [facility] Work Phone: [phone] Sodium [Moles/Vol] 137 mmol/L 136-145 [facility] Work Phone: [phone] WBC (Bld) [#/Vol] 9.7 10*3/uL 4.4-11.0 [facility] Work Phone: Blood erythrocytes count (nu mber/volume)on 11-07-2021 RBC (Bld) [#/Vol] 3.32 10*6/uL 4.2-5.4 [facility] Work Phone: [phone] Blood hemoglobin measurement (mass/volume)on 11-07-2021 Hemoglobin (Bld) [Mass/Vol] 9.9 g/dL 12.0-15.0 [facility] Work Phone: [phone] Blood platelet mean volumeon 11-07-2021 Platelet mean volume (Bld) [Entitic vol] 10.3 fL 6.2-12.0 [facility] Work Phone: [phone] Determination of erythrocyte mean corpuscular volume (MCV)on 11-07-2021 MCV (RBC) [Entitic vol] 94.9 fL 81-99 [facility] Work Phone: [phone] Hematocrit Auto (Bld) [Volum e fraction]on 11-07-2021 Hematocrit (Bld) [Volume fraction] 31.5 % 37-47 [facility] Work Phone: Laboratory - Chemistry and C hemistry - challengeon 11-07-2021 CO2 [Moles/Vol] 29.0 mmol/L 21.0-32.0 [facility] Work Phone: [phone] Urea nitrogen/Creatinine [Mass ratio] 17.7 mg/mg 10-20 [facility] Work Phone: [phone] Laboratory - Hematology and Cell countson 11-07-2021 Erythrocyte distribution width (RBC) [Entitic vol] 49.9 fL 35.1-43.9 [facility] Work Phone: [phone] distribution width (RBC) [Ratio] 14.2 % 11.6-14.6 [facility] Work Phone: [phone] MCH (RBC) [Entitic mass] 29.8 pg 27.0-32.0 [facility] Work Phone: [phone] MCHC Auto (RBC) [Mass/Vol]on 11-07-2021 MCHC (RBC) [Mass/Vol] 31.4 g/dL 32-36 [facility] Work Phone: No Panel Informationon 11-07 Estimated GFR (MDRD) Amer 203 mL/min >60 [facility] Work Phone: Comment on above: GFR Calc Estimated GFR (MDRD) Non-Af Amer 168 mL/min >60 [facility] Work Phone: Comment on above: Non- GFR Calc Platelets bldon 11-07-2021 Platelets (Bld) [#/Vol] 357 10*3/uL 150-450 [facility] Work Phone: [phone] Serum or plasma calcium rajni urement (mass/volume)on 11-07-2021 Calcium [Mass/Vol] 8.8 mg/dL 8.5-10.1 [facility] Work Phone: [phone] Serum or plasma creatinine m easurement (mass/volume)on 11-07-2021 Creatinine [Mass/Vol] 0.40 mg/dL 0.55-1.02 [facility] Work Phone: Comment on above: The validity of the calculated GFR & GFRAA in patients over 70 years has not been determined. Clinical correlation is essential. Serum or plasma urea nitroge n measurement (mass/volume)on 11-07-2021 Urea nitrogen [Mass/Vol] 7 mg/dL 7-18 [facility] Work Phone: Thin prep Papanicolaou smear with manual screeningon 11-07-2021 Thin prep Papanicolaou smear with manual screening 6 5-15 [facility] Work Phone: CNOVon 11-03-2021 CNOV Normal [facility] CNNURSEon 11-02-2021 CNNURSE Normal [facility] XR CHEST 2V FRONTAL/LATon XR CHEST 2V FRONTAL/LAT Normal [facility] Basophil percentageon 2021 Chloride [Moles/Vol] 99 mmol/L 98-107 [facility] Work Phone: Glucose [Mass/Vol] 107 mg/dL 74-106 [facility] Work Phone: Comment on above: Fasting Glucose resu lt from 100 to 125 mg/dL suggests IMPAIRED HOMEOSTASIS per A.D.A. criteria. Potassium [Moles/Vol] 3.5 mmol/L 3.5-5.1 [facility] Work Phone: Sodium [Moles/Vol] 135 mmol/L 136-145 [facility] Work Phone: [phone] WBC (Bld) [#/Vol] 12.1 10*3/uL 4.4-11.0 [facility] Work Phone: Blood erythrocytes count (nu mber/volume)on 10-31-2021 RBC (Bld) [#/Vol] 3.12 10*6/uL 4.2-5.4 [facility] Work Phone: [phone] Blood hemoglobin measurement (mass/volume)on 10-31-2021 Hemoglobin (Bld) [Mass/Vol] 9.3 g/dL 12.0-15.0 [facility] Work Phone: [phone] Blood platelet mean volumeon 10-31-2021 Platelet mean volume (Bld) [Entitic vol] 9.8 fL 6.2-12.0 [facility] Work Phone: Determination of erythrocyte mean corpuscular volume (MCV)on 10-31-2021 MCV (RBC) [Entitic vol] 96.2 fL 81-99 [facility] Work Phone: [phone] Hematocrit Auto (Bld) [Volum e fraction]on 10-31-2021 Hematocrit (Bld) [Volume fraction] 30.0 % 37-47 [facility] Work Phone: Laboratory - Chemistry and C hemistry - challengeon 10-31-2021 CO2 [Moles/Vol] 26.0 mmol/L 21.0-32.0 [facility] Work Phone: Urea nitrogen/Creatinine [Mass ratio] 14.1 mg/mg 10-20 [facility] Work Phone: [phone] Laboratory - Hematology and Cell countson 10-31-2021 Erythrocyte distribution width (RBC) [Entitic vol] 50.3 fL 35.1-43.9 [facility] Work Phone: [phone] Erythrocyte distribution width (RBC) [Ratio] 14.3 % 11.6-14.6 [facility] Work Phone: [phone] MCH (RBC) [Entitic mass] 29.8 pg 27.0-32.0 [facility] Work Phone: [phone] MCHC Auto (RBC) [Mass/Vol]on 10-31-2021 MCHC (RBC) [Mass/Vol] 31.0 g/dL 32-36 [facility] Work [facility]: No Panel Informationon 10-31 Estimated GFR (MDRD) Amer 157 mL/min >60 [facility] Work Phone: Comment on above: GFR Calc Estimated GFR (MDRD) Non-Af Amer 129 mL/min >60 [facility] Work Phone: [phone] Comment on above: Non- GFR Calc Platelets bldon 10-31-2021 Platelets (Bld) [#/Vol] 459 10*3/uL 150-450 [facility] Work Phone: Serum or plasma calcium rajni urement (mass/volume)on 10-31-2021 Calcium [Mass/Vol] 7.8 mg/dL 8.5-10.1 [facility] Work Phone: Serum or plasma creatinine m easurement (mass/volume)on 10-31-2021 Creatinine [Mass/Vol] 0.50 mg/dL 0.55-1.02 [facility] Work Phone: Comment on above: The validity of the calculated GFR & GFRAA in patients over 70 years has not been determined. Clinical correlation is essential. Serum or plasma urea nitroge n measurement (mass/volume)on 10-31-2021 Urea nitrogen [Mass/Vol] 7 mg/dL 7-18 [facility] Work Phone: Thin prep Papanicolaou smear with manual screeningon 10-31-2021 Thin prep Papanicolaou smear with manual screening 10 5-15 [facility] Work Phone: CT BRAIN WO IVCONon 10-31-19 [facility] Basophil percentageon 2021 Chloride [Moles/Vol] 98 mmol/L 98-107 [facility] Work Phone: Glucose [Mass/Vol] 150 mg/dL 74-106 [facility] Work Phone: Comment on above: Fasting Glucose resu lt greater than or equal to 126 mg/dL suggests DIABETES MELLITUS per A.D.A. criteria. Potassium [Moles/Vol] 3.2 mmol/L 3.5-5.1 [facility] Work Phone: Sodium [Moles/Vol] 136 mmol/L 136-145 [facility] Work Phone: Laboratory - Chemistry and C hemistry - challengeon 10-27-2021 CO2 [Moles/Vol] 31.0 mmol/L 21.0-32.0 [facility] Work Phone: Urea nitrogen/Creatinine [Mass ratio] 7.4 mg/mg 10-20 [facility] Work Phone: No Panel Informationon 10-27 Estimated GFR (MDRD) Amer 143 mL/min >60 [facility] Work Phone: Comment on above: GFR Calc Estimated GFR (MDRD) Non-Af Amer 118 mL/min >60 [facility] Work Phone: [phone] Comment on above: Non- GFR Calc Serum or plasma calcium rajni urement (mass/volume)on 10-27-2021 Calcium [Mass/Vol] 7.1 mg/dL 8.5-10.1 [facility] Work Phone: [phone] Serum or plasma creatinine m easurement (mass/volume)on 10-27-2021 Creatinine [Mass/Vol] 0.54 mg/dL 0.55-1.02 [facility] Work Phone: [phone] Comment on above: The validity of the calculated GFR & GFRAA in patients over 70 years has not been determined. Clinical correlation is essential. Serum or plasma urea nitroge n measurement (mass/volume)on 10-27-2021 Urea nitrogen [Mass/Vol] 4 mg/dL 7-18 [facility] Work Phone: Thin prep Papanicolaou smear with manual screeningon 10-27-2021 Thin prep Papanicolaou smear with manual screening 7 5-15 [facility] Work Phone: Basophil percentageon 2021 Chloride [Moles/Vol] 95 mmol/L 98-107 [facility] Work Phone: Glucose [Mass/Vol] 90 mg/dL 74-106 [facility] Work Phone: [phone] Potassium [Moles/Vol] 3.4 mmol/L 3.5-5.1 [facility] Work Phone: [phone] Sodium [Moles/Vol] 130 mmol/L 136-145 [facility] Work Phone: [phone] WBC (Bld) [#/Vol] 12.7 10*3/uL 4.4-11.0 [facility] Work Phone: Blood erythrocytes count (nu mber/volume)on 10-24-2021 RBC (Bld) [#/Vol] 2.63 10*6/uL 4.2-5.4 [facility] Work Phone: Blood hemoglobin measurement (mass/volume)on 10-24-2021 Hemoglobin (Bld) [Mass/Vol] 8.3 g/dL 12.0-15.0 [facility] Work Phone: [phone] Blood platelet mean volumeon 10-24-2021 Platelet mean volume (Bld) [Entitic vol] 9.4 fL 6.2-12.0 [facility] Work Phone: Determination of erythrocyte mean corpuscular volume (MCV)on 10-24-2021 MCV (RBC) [Entitic vol] 93.9 fL 81-99 [facility] Work Phone: [phone] Hematocrit Auto (Bld) [Volum e fraction]on 10-24-2021 Hematocrit (Bld) [Volume fraction] 24.7 % 37-47 [facility] Work Phone: [phone] Laboratory - Chemistry and C hemistry - challengeon 10-24-2021 CO2 [Moles/Vol] 27.0 mmol/L 21.0-32.0 [facility] Work Phone: [phone] Urea nitrogen/Creatinine [Mass ratio] 25.4 mg/mg 10-20 [facility] Work Phone: [phone] Laboratory - Hematology and Cell countson 10-24-2021 Erythrocyte distribution width (RBC) [Entitic vol] 47.5 fL 35.1-43.9 [facility] Work Phone: [phone] Erythrocyte distribution width (RBC) [Ratio] 13.9 % 11.6-14.6 [facility] Work Phone: [phone] MCH (RBC) [Entitic mass] 31.6 pg 27.0-32.0 [facility] Work Phone: [phone] MCHC Auto (RBC) [Mass/Vol]on 10-24-2021 MCHC (RBC) [Mass/Vol] 33.6 g/dL 32-36 [facility] Work Phone: No Panel Informationon 10-24 Estimated GFR (MDRD) Amer 230 mL/min >60 [facility] Work Phone: Comment on above: GFR Calc Estimated GFR (MDRD) Non-Af Amer 190 mL/min >60 [facility] Work Phone: Comment on above: Non- GFR Calc Platelets bldon 10-24-2021 Platelets (Bld) [#/Vol] 529 10*3/uL 150-450 [facility] Work Phone: Serum or plasma calcium rajni urement (mass/volume)on 10-24-2021 Calcium [Mass/Vol] 7.9 mg/dL 8.5-10.1 [facility] Work Phone: Serum or plasma creatinine m easurement (mass/volume)on 10-24-2021 Creatinine [Mass/Vol] 0.35 mg/dL 0.55-1.02 [facility] Work Phone: Comment on above: The validity of the calculated GFR & GFRAA in patients over 70 years has not been determined. Clinical correlation is essential. Serum or plasma urea nitroge n measurement (mass/volume)on 10-24-2021 Urea nitrogen [Mass/Vol] 9 mg/dL 7-18 [facility] Work Phone: Thin prep Papanicolaou smear with manual screeningon 10-24-2021 Thin prep Papanicolaou smear with manual screening 8 5-15 [facility] Work Phone: CNPNon 10-20-2021 CNPN Normal [facility] ALLIED HEALTHon 10-17-2021 ALLIED HEALTH Normal [facility] Basic metabolic 2000 panelon 10-17-2021 Anion gap [Moles/Vol] 12 mmol/L Normal 9-18 [facility] Comment on above: Order Comment: Speci men Type: BLOOD SPECIMENOrdering Facility: [facility] Address: [address] [place] [address] Performed By: #### 2 4321-2 ####[facility] LABORATORYCLIA [id number] [place] [address] [place] Calcium [Mass/Vol] 6.5 mg/dL Low 8.5-10.2 [facility] Comment on above: Order Comment: Speci men Type: BLOOD SPECIMENOrdering Facility: [facility] Address: [address] [place] [address] Performed By: #### 2 4321-2 ####[facility]ORATORYCLIA [id number] [place] [address] [place] Chloride [Moles/Vol] 95 mmol/L Low 97-105 [facility] Comment on above: Order Comment: Speci men Type: BLOOD SPECIMENOrdering Facility: [facility] Address: [address] [place] [address] Performed By: #### 2 4321-2 ####[facility] LABORATORYCLIA [id number] [address] [place] CO2 [Moles/Vol] 25 mmol/L Normal 22-30 [facility] Comment on above: Order Comment: Speci men Type: BLOOD SPECIMENOrdering Facility: [facility] Address: [address] [place] [address] Performed By: #### 2 4321-2 ####[facility] LABORATORYCLIA [id number] [address] [place] Creatinine [Mass/Vol] 0.44 mg/dL Low 0.58-0.96 [facility] Comment on above: Order Comment: Speci men Type: BLOOD SPECIMENOrdering Facility: [facility] Address: [address] [place] [address] Performed By: #### 2 4321-2 ####[facility] LABORATORYCLIA [id number] [address] [place] ESTIMATED GLOMERULAR FILTRATION RATE 102 mL/min/1.73m??? Normal >=60 [facility] Comment on above: Order Comment: Shartah lozano Type: BLOOD SPECIMENOrdering Facility: [facility] Address: [address] [id number] Result Comment: Lulu mated Glomerular Filtration Rate [...] actual GFR. Performed By: #### 2 4321-2 ####[facility] LABORATORYCLIA [id number] [place] [address] [place] Glucose [Mass/Vol] 122 mg/dL High 74-99 [facility] Comment on above: Order Comment: Sharath lozano Type: BLOOD SPECIMENOrdering Facility: [facility] Address: [address] [place] [address] Result Comment: The [place] [employer] (ADA) provides guidance for cutoff [...] Standards of Medical Care in Diabetes 2016, [place] [employer]. Diabetes Care. 2016.39(Suppl 1). Performed By: #### 2 4321-2 ####[facility] LABORATORYCLIA [id number] [place] [address] [place] Potassium [Moles/Vol] 3.7 mmol/L Normal 3.7-5.1 [facility] Comment on above: Order Comment: Sharath lozano Type: BLOOD SPECIMENOrdering Facility: [facility] Address: [address] Performed By: #### 2 4321-2 ####[facility] LABORATORYCLIA [id number] [address] [place] Sodium [Moles/Vol] 132 mmol/L Low 136-144 [facility] Comment on above: Order Comment: Speci men Type: BLOOD SPECIMENOrdering Facility: [facility] Address: [address] [place] [address] Performed By: #### 2 4321-2 ####[facility]ORATORYCLIA [id number] [address] [place] Urea nitrogen [Mass/Vol] 10 mg/dL Normal 7-21 [facility] Comment on above: Order Comment: Speci men Type: BLOOD SPECIMENOrdering Facility: [facility] Address: [address] [place] [address] Performed By: #### 2 4321-2 ####[facility] LABORATORYCLIA [id number] [address] [place] CASE MANAGEMon 10-17-2021 CASE MANAGEM Normal [facility] CASE MANAGEM Normal [facility] CBC panel Auto (Bld)on 10-17 Erythrocyte distribution width (RBC) [Ratio] 13.6 % Normal 11.5-15.0 [facility] Comment on above: Order Comment: Speci men Type: BLOOD SPECIMENOrdering Facility: [facility] Address: [address] [place] [address] Performed By: #### 5 8410-2 ####[facility] LABORATORYCLIA [id number] [address] [place] Hematocrit (Bld) [Volume fraction] 25.2 % Low 36.0-46.0 [facility] Comment on above: Order Comment: Speci men Type: BLOOD SPECIMENOrdering Facility: [facility] Address: [address] [place] [address] Performed By: #### 5 8410-2 ####[facility] LABORATORYCLIA [id number] [address] [place] Hemoglobin (Bld) [Mass/Vol] 8.6 g/dL Low 11.5-15.5 [facility] Comment on above: Order Comment: Speci men Type: BLOOD SPECIMENOrdering Facility: [facility] Address: [address] [place] [address] Performed By: #### 5 8410-2 ####[facility] LABORATORYCLIA [id number] [address] MCH (RBC) [Entitic mass] 32.2 pg Normal 26.0-34.0 [facility] Comment on above: Order Comment: Speci men Type: BLOOD SPECIMENOrdering Facility: [facility] Address: [address] [place] [address] Performed By: #### 5 8410-2 ####[facility] LABORATORYCLIA [id number] [address] [facility] MCHC (RBC) [Mass/Vol] 34.1 g/dL Normal 30.5-36.0 [facility] Comment on above: Order Comment: Speci men Type: BLOOD SPECIMENOrdering Facility: [facility] Address: [address] [place] [address] Performed By: #### 5 8410-2 ####[facility] LABORATORYCLIA [id number] [address] MCV (RBC) [Entitic vol] 94.4 fL Normal 80.0-100.0 [facility] Comment on above: Order Comment: Speci men Type: BLOOD SPECIMENOrdering Facility: [facility] Address: [address] [place] [address] Performed By: #### 5 8410-2 ####[facility] LABORATORYCLIA [id number] [address] Nucleated RBC (Bld) [#/Vol] 10*3/uL Normal <0.01 [facility] Comment on above: Order Comment: Speci men Type: BLOOD SPECIMENOrdering Facility: [facility] Address: [address] [place] [address] Performed By: #### 5 8410-2 ####[facility]ORATORYCLIA [id number] [address] [place] Platelet mean volume (Bld) [Entitic vol] 8.9 fL Low 9.0-12.7 [facility] Comment on above: Order Comment: Speci men Type: BLOOD SPECIMENOrdering Facility: [facility] Address: [address] [place] [address] Performed By: #### 5 8410-2 ####[facility]ATORYCLIA [id number] [address] [place] Platelets (Bld) [#/Vol] 519 10*3/uL High 150-400 [facility] Comment on above: Order Comment: Speci men Type: BLOOD SPECIMENOrdering Facility: [facility] Address: [address] [place] [address] Performed By: #### 5 8410-2 ####[facility]ORATORYCLIA [id number] [place] [address] [place] RBC (Bld) [#/Vol] 2.67 10*6/uL Low 3.90-5.20 [facility] Comment on above: Order Comment: Speci men Type: BLOOD SPECIMENOrdering Facility: [facility] Address: [address] [place] [address] Performed By: #### 5 8410-2 ####[facility]ATORYCLIA [id number] [place] [address] [place] WBC (Bld) [#/Vol] 19.03 10*3/uL High 3.70-11.00 [facility] Comment on above: Order Comment: Speci men Type: BLOOD SPECIMENOrdering Facility: [facility] Address: [address] [place] [address] Performed By: #### 5 8410-2 ####[facility]ATORYCLIA [id number] [address] [place] CNDSon 10-17-2021 CNDS Normal [facility] SARS-CoV-2 RNA Resp Ql LEONA+p robeon 10-17-2021 SARS-CoV-2 (COVID-19) RNA ELONA+probe Ql (Resp) COVID 19 RESULT: SARS-CoV-2 (Agent of COVID-19) Not Detected by RT-PCR or equivalent method. This test has been authorized by FDA under an Emergency Use Authorization (EUA). Normal [facility] Comment on above: Performed By: #### 9 4500-6 ####[facility]ORYCLIA [id number] [place] [address] [place] XR CHEST 1V FRONTALon 2021 XR CHEST 1V FRONTAL Normal [facility] Basic metabolic 2000 panelon 10-16-2021 Anion gap [Moles/Vol] 11 mmol/L Normal 9-18 [facility] Comment on above: Order Comment: Speci men Type: BLOOD SPECIMENOrdering Facility: [facility] Address: [address] [place] [address] Performed By: #### 2 4321-2 ####[facility]ATORYCLIA [id number] [place] [address] [place] Calcium [Mass/Vol] 7.0 mg/dL Low 8.5-10.2 [facility] Comment on above: Order Comment: Speci men Type: BLOOD SPECIMENOrdering Facility: [facility] Address: [address] [place] [address] Performed By: #### 2 4321-2 ####[facility]ORYCLIA [id number] [place] [address] [place] Chloride [Moles/Vol] 95 mmol/L Low 97-105 [facility] Comment on above: Order Comment: Speci men Type: BLOOD SPECIMENOrdering Facility: [facility] Address: [address] [place] [address] Performed By: #### 2 4321-2 ####[facility]ORYCLIA [id number] [place] [address] [place] CO2 [Moles/Vol] 26 mmol/L Normal 22-30 [facility] Comment on above: Order Comment: Speci men Type: BLOOD SPECIMENOrdering Facility: [facility] Address: [address] [place] [address] Performed By: #### 2 4321-2 ####[facility] [id number] [address] STATES OF [facility] Creatinine [Mass/Vol] 0.38 mg/dL Low 0.58-0.96 [facility] Comment on above: Order Comment: Speci men Type: BLOOD SPECIMENOrdering Facility: [facility] Address: [address] [place] [address] Performed By: #### 2 4321-2 ####[facility]PITALIA [id number] [address] ESTIMATED GLOMERULAR FILTRATION RATE 105 mL/min/1.73m??? Normal >=60 [facility] Comment on above: Order Comment: Speci men Type: BLOOD SPECIMENOrdering Facility: [facility] Address: [address] [place] [address] Result Comment: Lulu mated Glomerular Filtration Rate [...] actual GFR. Performed By: #### 2 4321-2 ####[facility]ATORYIA [id number] [address] OF [facility] Glucose [Mass/Vol] 120 mg/dL High 74-99 [facility] Comment on above: Order Comment: Sharath lozano Type: BLOOD SPECIMENOrdering Facility: [facility] Address: [address] [place] [address] Result Comment: The [place] [employer] (ADA) provides guidance for cutoff [...] Standards of Medical Care in Diabetes 2016, [employer]. Diabetes Care. 2016.39(Suppl 1). Performed By: #### 2 4321-2 ####[facility]ATORYCLIA [id number] [address] STATES OF [facility] Potassium [Moles/Vol] 3.6 mmol/L Low 3.7-5.1 [facility] Comment on above: Order Comment: Sharath lozano Type: BLOOD SPECIMENOrdering Facility: [facility] Address: [address] [place] [address] Performed By: #### 2 4321-2 ####[facility]ORYCLIA [id number] [address] STATES OF [facility] Sodium [Moles/Vol] 132 mmol/L Low 136-144 [facility] Comment on above: Order Comment: Sharath lozano Type: BLOOD SPECIMENOrdering Facility: [facility] Address: [address] [place] [address] Performed By: #### 2 4321-2 ####[facility]ATORYCLIA [id number] [address] STATES [facility] Urea nitrogen [Mass/Vol] 11 mg/dL Normal 7-21 [facility] Comment on above: Order Comment: Cathyi marta Type: BLOOD SPECIMENOrdering Facility: [facility] Address: [address] [place] [address] Performed By: #### 2 4321-2 ####[facility]ORYCLIA [id number] [address] [place] CASE MANAGEMon 10-16-2021 CASE MANAGEM Normal [facility] CASE MANAGEM Normal [facility] CBC panel Auto (Bld)on 10-16 Erythrocyte distribution width (RBC) [Ratio] 13.6 % Normal 11.5-15.0 [facility] Comment on above: Order Comment: Speci men Type: BLOOD SPECIMENOrdering Facility: [facility] Address: [address] [place] [address] Performed By: #### 5 8410-2 ####[facility]ORYCLIA [id number] [address] Hematocrit (Bld) [Volume fraction] 25.6 % Low 36.0-46.0 [facility] Comment on above: Order Comment: Speci men Type: BLOOD SPECIMENOrdering Facility: [facility] Address: [address] [place] [address] Performed By: #### 5 8410-2 ####[facility]ATORYCLIA [id number] [address] [place] Hemoglobin (Bld) [Mass/Vol] 8.7 g/dL Low 11.5-15.5 [facility] Comment on above: Order Comment: Speci men Type: BLOOD SPECIMENOrdering Facility: [facility] Address: [address] [place] [address] Performed By: #### 5 8410-2 ####[facility]ORYCLIA [id number] [address] [place] MCH (RBC) [Entitic mass] 32.0 pg Normal 26.0-34.0 [facility] Comment on above: Order Comment: Speci men Type: BLOOD SPECIMENOrdering Facility: [facility] Address: [address] [place] [address] Performed By: #### 5 8410-2 ####[facility]ORYCLIA [id number] [address] MCHC (RBC) [Mass/Vol] 34.0 g/dL Normal 30.5-36.0 [facility] Comment on above: Order Comment: Speci men Type: BLOOD SPECIMENOrdering Facility: [facility] Address: [address] [place] [address] Performed By: #### 5 8410-2 ####[facility]ATORYCLIA [id number] [address] MCV (RBC) [Entitic vol] 94.1 fL Normal 80.0-100.0 [facility] Comment on above: Order Comment: Speci men Type: BLOOD SPECIMENOrdering Facility: [facility] Address: [address] [place] [address] Performed By: #### 5 8410-2 ####[facility]ORYCLIA [id number] [address] Nucleated RBC (Bld) [#/Vol] 10*3/uL Normal <0.01 [facility] Comment on above: Order Comment: Speci men Type: BLOOD SPECIMENOrdering Facility: [facility] Address: [address] [place] [address] Performed By: #### 5 8410-2 ####[facility]ORYCLIA [id number] [address] Platelet mean volume (Bld) [Entitic vol] 8.8 fL Low 9.0-12.7 [facility] Comment on above: Order Comment: Speci men Type: BLOOD SPECIMENOrdering Facility: [facility] Address: [address] [place] [address] Performed By: #### 5 8410-2 ####[facility]ORYCLIA [id number] [address] Platelets (Bld) [#/Vol] 465 10*3/uL High 150-400 [facility] Comment on above: Order Comment: Speci men Type: BLOOD SPECIMENOrdering Facility: [facility] Address: [address] [place], [place] [address] Performed By: #### 5 8410-2 ####[facility]ATORYCLIA [id number] [address] RBC (Bld) [#/Vol] 2.72 10*6/uL Low 3.90-5.20 [facility] Comment on above: Order Comment: Speci men Type: BLOOD SPECIMENOrdering Facility: [facility] Address: [address] [place] [address] Performed By: #### 5 8410-2 ####[facility]ATORYCLIA [id number] [place] [address] [place] WBC (Bld) [#/Vol] 17.77 10*3/uL High 3.70-11.00 [facility] Comment on above: Order Comment: Speci men Type: BLOOD SPECIMENOrdering Facility: [facility] Address: [address] [place] [address] Performed By: #### 5 8410-2 ####[facility]ATORYCLIA [id number] [address] OF [facility] CONSULT PROGon 10-16-2021 CONSULT PROG Normal [facility] THERAPY NTon 10-16-2021 THERAPY NT Normal [facility] THERAPY NT Normal [facility] Basic metabolic 2000 panelon 10-15-2021 Anion gap [Moles/Vol] 11 mmol/L Normal 9-18 [facility] Comment on above: Order Comment: Speci men Type: BLOOD SPECIMENOrdering Facility: [facility] Address: [address] [place] [address] Performed By: #### 2 4321-2 ####[facility]ORYCLIA [id number] [place] [address] [place] Calcium [Mass/Vol] 6.8 mg/dL Low 8.5-10.2 [facility] Comment on above: Order Comment: Speci men Type: BLOOD SPECIMENOrdering Facility: [facility] Address: [address] [place] [address] Performed By: #### 2 4321-2 ####[facility]ORYCLIA [id number] [place] [address] [place] Chloride [Moles/Vol] 97 mmol/L Normal 97-105 [facility] Comment on above: Order Comment: Speci men Type: BLOOD SPECIMENOrdering Facility: [facility] Address: [address] [place] [address] Performed By: #### 2 4321-2 ####[facility]ORYCLIA [id number] [address] [place] CO2 [Moles/Vol] 26 mmol/L Normal 22-30 [facility] Comment on above: Order Comment: Speci men Type: BLOOD SPECIMENOrdering Facility: [facility] Address: [address] [place] [address] Performed By: #### 2 4321-2 ####[facility]ORYCLIA [id number] [address] [place] Creatinine [Mass/Vol] 0.44 mg/dL Low 0.58-0.96 [facility] Comment on above: Order Comment: Speci men Type: BLOOD SPECIMENOrdering Facility: [facility] Address: [address] [place] [address] Performed By: #### 2 4321-2 ####[facility]ORYCLIA [id number] [address] ESTIMATED GLOMERULAR FILTRATION RATE 102 mL/min/1.73m??? Normal >=60 [facility] Comment on above: Order Comment: Speci men Type: BLOOD SPECIMENOrdering Facility: [facility] Address: [address] [place] [address] Result Comment: Lulu mated Glomerular Filtration Rate [...] actual GFR. Performed By: #### 2 4321-2 ####[facility]ATORYCLIA [id number] [address] [place] Glucose [Mass/Vol] 111 mg/dL High 74-99 [facility] Comment on above: Order Comment: Speci men Type: BLOOD SPECIMENOrdering Facility: [facility] Address: [address] Result Comment: The [employer] (ADA) provides guidance for cutoff [...] Standards of Medical Care in Diabetes 2016, [place] [employer]. Diabetes Care. 2016.39(Suppl 1). Performed By: #### 2 4321-2 ####[facility]ORYCLIA [id number] [place] [address] [place] Potassium [Moles/Vol] 3.5 mmol/L Low 3.7-5.1 [facility] Comment on above: Order Comment: Sharath marta Type: BLOOD SPECIMENOrdering Facility: [facility] Address: [address] [place] [address] Performed By: #### 2 4321-2 ####[facility]ATORYCLIA [id number] [place] [address] [place] Sodium [Moles/Vol] 134 mmol/L Low 136-144 [facility] Comment on above: Order Comment: Speci men Type: BLOOD SPECIMENOrdering Facility: [facility] Address: [address] Performed By: #### 2 4321-2 ####[facility]ATORYCLIA [id number] [place] [address] [place] Urea nitrogen [Mass/Vol] 11 mg/dL Normal 7-21 [facility] Comment on above: Order Comment: Cathyi men Type: BLOOD SPECIMENOrdering Facility: [facility] Address: [address] Performed By: #### 2 4321-2 ####[facility]ORYCLIA [id number] [address] CBC panel Auto (Bld)on 10-15 Erythrocyte distribution width (RBC) [Ratio] 13.6 % Normal 11.5-15.0 [facility] Comment on above: Order Comment: Speci men Type: BLOOD SPECIMENOrdering Facility: [facility] Address: [address] [place] [address] Performed By: #### 5 8410-2 ####[facility]ORYCLIA [id number] [address] Hematocrit (Bld) [Volume fraction] 23.5 % Low 36.0-46.0 [facility] Comment on above: Order Comment: Speci men Type: BLOOD SPECIMENOrdering Facility: [facility] Address: [address] [place] [address] Performed By: #### 5 8410-2 ####[facility]ORYCLIA [id number] [address] Hemoglobin (Bld) [Mass/Vol] 7.9 g/dL Low 11.5-15.5 [facility] Comment on above: Order Comment: Speci men Type: BLOOD SPECIMENOrdering Facility: [facility] Address: [address] [place] [address] Performed By: #### 5 8410-2 ####[facility]ORYCLIA [id number] [address] MCH (RBC) [Entitic mass] 32.6 pg Normal 26.0-34.0 [facility] Comment on above: Order Comment: Speci men Type: BLOOD SPECIMENOrdering Facility: [facility] Address: [address] [place] [address] Performed By: #### 5 8410-2 ####[facility]ORYCLIA [id number] [address] MCHC (RBC) [Mass/Vol] 33.6 g/dL Normal 30.5-36.0 [facility] Comment on above: Order Comment: Speci men Type: BLOOD SPECIMENOrdering Facility: [facility] Address: [address] [place] [address] Performed By: #### 5 8410-2 ####[facility]ORYCLIA [id number] [address] [place] MCV (RBC) [Entitic vol] 97.1 fL Normal 80.0-100.0 [facility] Comment on above: Order Comment: Speci men Type: BLOOD SPECIMENOrdering Facility: [facility] Address: [address] [place] [address] Performed By: #### 5 8410-2 ####[facility]ORYCLIA [id number] [address] [place] Nucleated RBC (Bld) [#/Vol] 10*3/uL Normal <0.01 [facility] Comment on above: Order Comment: Speci men Type: BLOOD SPECIMENOrdering Facility: [facility] Address: [address] [place] [address] Performed By: #### 5 8410-2 ####[facility]ORYCLIA [id number] [address] [place] Platelet mean volume (Bld) [Entitic vol] 8.9 fL Low 9.0-12.7 [facility] Comment on above: Order Comment: Speci men Type: BLOOD SPECIMENOrdering Facility: [facility] Address: [address] [place] [address] Performed By: #### 5 8410-2 ####[facility]ORYCLIA [id number] [address] [place] Platelets (Bld) [#/Vol] 388 10*3/uL Normal 150-400 [facility] Comment on above: Order Comment: Speci men Type: BLOOD SPECIMENOrdering Facility: [facility] Address: [address] [place] [address] Performed By: #### 5 8410-2 ####[facility]ORYCLIA [id number] [address] STATES OF [facility] RBC (Bld) [#/Vol] 2.42 10*6/uL Low 3.90-5.20 [facility] Comment on above: Order Comment: Speci men Type: BLOOD SPECIMENOrdering Facility: [facility] Address: [address] [place] [address] Performed By: #### 5 8410-2 ####[facility]ORYCLIA [id number] [address] OF [facility] WBC (Bld) [#/Vol] 16.58 10*3/uL High 3.70-11.00 [facility] Comment on above: Order Comment: Speci men Type: BLOOD SPECIMENOrdering Facility: [facility] Address: [address] [place] [address] Performed By: #### 5 8410-2 ####[facility]ORYCLIA [id number] [address] THERAPY NTon 10-15-2021 THERAPY NT Normal [facility] Urinalysis complete panel (U )on 10-15-2021 Bacteria LM.HPF (Urine sed) [#/Area] Few Abnormal None Seen [facility] Comment on above: Order Comment: Speci men Type: URINE SPECIMENOrdering Facility: [facility] Address: [address] [place] [address] Performed By: #### 2 4356-8 ####[facility]ORYCLIA [id number] [address] Bilirubin Ql (U) Negative Normal Negative [facility] Comment on above: Order Comment: Speci men Type: URINE SPECIMENOrdering Facility: [facility] Address: [address] [place] [address] Performed By: #### 2 4356-8 ####[facility]ORYCLIA [id number] [address] Clarity (Unsp spec) Clear Normal Clear [facility] Comment on above: Order Comment: Speci men Type: URINE SPECIMENOrdering Facility: [facility] Address: [address] [place] [address] Performed By: #### 2 4356-8 ####[facility]ORYCLIA [id number] [address] OF [facility] Color (U) Light Yellow Normal yellow [facility] Comment on above: Order Comment: Speci men Type: URINE SPECIMENOrdering Facility: [facility] Address: [address] [place] [address] Performed By: #### 2 4356-8 ####[facility]ORYCLIA [id number] [address] Epithelial cells LM.HPF (Urine sed) [#/Area] Few Normal [facility] Comment on above: Order Comment: Speci men Type: URINE SPECIMENOrdering Facility: [facility] Address: [address] [place] [address] Result Comment: Few Performed By: #### 2 4356-8 ####[facility]ORYCLIA [id number] [address] Glucose Test strip (U) [Mass/Vol] Negative Normal Negative [facility] Comment on above: Order Comment: Speci men Type: URINE SPECIMENOrdering Facility: [facility] Address: [address] [place] [address] Performed By: #### 2 4356-8 ####[facility]ORYCLIA [id number] [address] Hemoglobin Ql (U) Negative Normal Negative [facility] Comment on above: Order Comment: Speci men Type: URINE SPECIMENOrdering Facility: [facility] Address: [address] [place] [address] Performed By: #### 2 4356-8 ####[facility]ORYCLIA [id number] [address] [place] Ketones Ql (U) Negative Normal Negative [facility] Comment on above: Order Comment: Speci men Type: URINE SPECIMENOrdering Facility: [facility] Address: [address] [place] [address] Performed By: #### 2 4356-8 ####[facility]ORYCLIA [id number] [address] Leukocyte esterase Test strip Ql (U) 500 Karson/mL Abnormal Negative [facility] Comment on above: Order Comment: Speci men Type: URINE SPECIMENOrdering Facility: [facility] Address: [address] [place] [address] Performed By: #### 2 4356-8 ####[facility]ORYCLIA [id number] [address] Nitrite Ql (U) 1+ Abnormal Negative [facility] Comment on above: Order Comment: Speci men Type: URINE SPECIMENOrdering Facility: [facility] Address: [address] [place] [address] Performed By: #### 2 4356-8 ####[facility]ORYCLIA [id number] [address] pH (U) 7.5 [pH] Normal 5.0-8.0 [facility] Comment on above: Order Comment: Speci men Type: URINE SPECIMENOrdering Facility: [facility] Address: [address] [place] [address] Performed By: #### 2 4356-8 ####[facility]ORYCLIA [id number] [address] Protein (U) [Mass/Vol] Negative Normal Negative [facility] Comment on above: Order Comment: Speci men Type: URINE SPECIMENOrdering Facility: [facility] Address: [address] [place] [address] Performed By: #### 2 4356-8 ####[facility]ORYCLIA [id number] [address] [place] RBC LM.HPF (Urine sed) [#/Area] 6-10 /HPF Abnormal 0-3 /HPF [facility] Comment on above: Order Comment: Speci men Type: URINE SPECIMENOrdering Facility: [facility] Address: [address] [place] [address] Performed By: #### 2 4356-8 ####[facility]ORYCLIA [id number] [address] Specific gravity (U) [Rel density] 1.007 Normal 1.005-1.030 [facility] Comment on above: Order Comment: Speci men Type: URINE SPECIMENOrdering Facility: [facility] Address: [address] [place] [address] Performed By: #### 2 4356-8 ####[facility]ORYCLIA [id number] [address] Urobilinogen Ql (U) Normal Normal Negative [facility] Comment on above: Order Comment: Speci men Type: URINE SPECIMENOrdering Facility: [facility] Address: [address] [place] [address] Performed By: #### 2 4356-8 ####[facility]ORYCLIA [id number] [address] WBC LM.HPF (Urine sed) [#/Area] /[HPF] Abnormal 0-5 /HPF [facility] Comment on above: Order Comment: Speci men Type: URINE SPECIMENOrdering Facility: [facility] Address: [address] [place] [address] Performed By: #### 2 4356-8 ####[facility] LABORATORYCLIA [id number] [address] Urinalysis complete pnl Uron 10-15-2021 Urinalysis complete panel (U) Abnormal [facility] Comment on above: Order Comment: Speci men Type: URINE SPECIMENOrdering Facility: [facility] Address: [address] [place] [address] Performed By: #### 2 4356-8 ####[facility] [id number] [place] [address] [place] Basic metabolic 2000 panelon 10-14-2021 Anion gap [Moles/Vol] 11 mmol/L Normal 9-18 [facility] Comment on above: Order Comment: Speci men Type: BLOOD SPECIMENOrdering Facility: [facility] Address: [address] [place] [address] Performed By: #### 2 4321-2 ####[facility]ORATORYCLIA [id number] [place] [address] [place] Calcium [Mass/Vol] 7.1 mg/dL Low 8.5-10.2 [facility] Comment on above: Order Comment: Speci men Type: BLOOD SPECIMENOrdering Facility: [facility] Address: [address] [place] [address] Performed By: #### 2 4321-2 ####[facility]ORATORYCLIA [id number] [address] [place] Chloride [Moles/Vol] 100 mmol/L Normal 97-105 [facility] Comment on above: Order Comment: Speci men Type: BLOOD SPECIMENOrdering Facility: [facility] Address: [address] [place] [address] Performed By: #### 2 4321-2 ####[facility]ORATORYCLIA [id number] [place] [address] [place] CO2 [Moles/Vol] 25 mmol/L Normal 22-30 [facility] Comment on above: Order Comment: Speci men Type: BLOOD SPECIMENOrdering Facility: [facility] Address: [address] [place] [address] Performed By: #### 2 4321-2 ####[facility]ORATORYCLIA [id number] [address] [place] Creatinine [Mass/Vol] 0.44 mg/dL Low 0.58-0.96 [facility] Comment on above: Order Comment: Speci men Type: BLOOD SPECIMENOrdering Facility: [facility] Address: [address] [address] Performed By: #### 2 4321-2 ####[facility] HOSPITALIA [id number] [address] ESTIMATED GLOMERULAR FILTRATION RATE 102 mL/min/1.73m??? Normal >=60 [facility] Comment on above: Order Comment: Sharath lozano Type: BLOOD SPECIMENOrdering Facility: [facility] Address: [address] [place] [address] Result Comment: Lulu mated Glomerular Filtration Rate [...] actual GFR. Performed By: #### 2 4321-2 ####[facility] HOSPITALIA [id number] [address] [place] Glucose [Mass/Vol] 116 mg/dL High 74-99 [facility] Comment on above: Order Comment: Sharath lozano Type: BLOOD SPECIMENOrdering Facility: [facility] Address: [address] [place] [address] Result Comment: The [employer] (ADA) provides guidance for cutoff [...] Standards of Medical Care in Diabetes 2016, [employer]. Diabetes Care. 2016.39(Suppl 1). Performed By: #### 2 4321-2 ####[facility] LABORATORYIA [id number] [address] [place] Potassium [Moles/Vol] 3.8 mmol/L Normal 3.7-5.1 [facility] Comment on above: Order Comment: Speci men Type: BLOOD SPECIMENOrdering Facility: [facility] Address: [address] [place] [address] Performed By: #### 2 4321-2 ####[facility]ATORYCLIA [id number] [address] [place] Sodium [Moles/Vol] 136 mmol/L Normal 136-144 [facility] Comment on above: Order Comment: Speci men Type: BLOOD SPECIMENOrdering Facility: [facility] Address: [address] [place] [address] Performed By: #### 2 4321-2 ####[facility]ATORYCLIA [id number] [address] STATES OF [facility] Urea nitrogen [Mass/Vol] 9 mg/dL Normal 7-21 [facility] Comment on above: Order Comment: Speci men Type: BLOOD SPECIMENOrdering Facility: [facility] Address: [address] [place] [address] Performed By: #### 2 4321-2 ####[facility]ATORYCLIA [id number] [address] [place] CBC panel Auto (Bld)on 10-14 Erythrocyte distribution width (RBC) [Ratio] 13.7 % Normal 11.5-15.0 [facility] Comment on above: Order Comment: Speci men Type: BLOOD SPECIMENOrdering Facility: [facility] Address: [address] [place] [address] Performed By: #### 5 8410-2 ####[facility]ATORYCLIA [id number] [address] [place] Hematocrit (Bld) [Volume fraction] 25.1 % Low 36.0-46.0 [facility] Comment on above: Order Comment: Speci men Type: BLOOD SPECIMENOrdering Facility: [facility] Address: [address] [address] Performed By: #### 5 8410-2 ####[facility]ATORYCLIA [id number] [address] Hemoglobin (Bld) [Mass/Vol] 8.4 g/dL Low 11.5-15.5 [facility] Comment on above: Order Comment: Speci men Type: BLOOD SPECIMENOrdering Facility: [facility] Address: [address] [place] [address] Performed By: #### 5 8410-2 ####[facility]ATORYCLIA [id number] [address] MCH (RBC) [Entitic mass] 32.3 pg Normal 26.0-34.0 [facility] Comment on above: Order Comment: Speci men Type: BLOOD SPECIMENOrdering Facility: [facility] Address: [address] [place] [address] Performed By: #### 5 8410-2 ####[facility]ATORYCLIA [id number] [address] MCHC (RBC) [Mass/Vol] 33.5 g/dL Normal 30.5-36.0 [facility] Comment on above: Order Comment: Speci men Type: BLOOD SPECIMENOrdering Facility: [facility] Address: [address] [place] [address] Performed By: #### 5 8410-2 ####[facility]ATORYCLIA [id number] [address] MCV (RBC) [Entitic vol] 96.5 fL Normal 80.0-100.0 [facility] Comment on above: Order Comment: Speci men Type: BLOOD SPECIMENOrdering Facility: [facility] Address: [address] [place] [address] Performed By: #### 5 8410-2 ####[facility]ATORYCLIA [id number] [address] Nucleated RBC (Bld) [#/Vol] 10*3/uL Normal <0.01 [facility] Comment on above: Order Comment: Speci men Type: BLOOD SPECIMENOrdering Facility: [facility] Address: [address] [place] [address] Performed By: #### 5 8410-2 ####[facility]ATORYCLIA [id number] [address] [place] Platelet mean volume (Bld) [Entitic vol] 8.9 fL Low 9.0-12.7 [facility] Comment on above: Order Comment: Speci men Type: BLOOD SPECIMENOrdering Facility: [facility] Address: [address] [place] [address] Performed By: #### 5 8410-2 ####[facility]ATORYCLIA [id number] [address] [place] Platelets (Bld) [#/Vol] 405 10*3/uL High 150-400 [facility] Comment on above: Order Comment: Speci men Type: BLOOD SPECIMENOrdering Facility: [facility] Address: [address] [place] [address] Performed By: #### 5 8410-2 ####[facility]ORYCLIA [id number] [address] [place] RBC (Bld) [#/Vol] 2.60 10*6/uL Low 3.90-5.20 [facility] Comment on above: Order Comment: Speci men Type: BLOOD SPECIMENOrdering Facility: [facility] Address: [address] [place], [place] [address] Performed By: #### 5 8410-2 ####[facility]ATORYCLIA [id number] [address] [place] WBC (Bld) [#/Vol] 16.86 10*3/uL High 3.70-11.00 [facility] Comment on above: Order Comment: Speci men Type: BLOOD SPECIMENOrdering Facility: [facility] Address: [address] [place] [address] Performed By: #### 5 8410-2 ####[facility]ATORYCLIA [id number] [address] OF [facility] TSH SerPl-aCncon 10-14-2021 TSH Qn 1.610 m[IU]/L Normal 0.270-4.200 [facility] Comment on above: Order Comment: Speci men Type: BLOOD SPECIMENOrdering Facility: [facility] Address: [address] [place] [address] Performed By: #### 3 016-3 ####[facility]ORYCLIA [id number] [address] [place] Vit B12 SerPl-mCncon 022 Cobalamin (Vitamin B12) [Mass/Vol] 1299 pg/mL High 232-1,245 [facility] Comment on above: Order Comment: Speci men Type: BLOOD SPECIMENOrdering Facility: [facility] Address: [address] [place] [address] Performed By: #### 2 132-9 ####[facility]ORYCLIA [id number] [address] [place] ALLIED HEALTHon 10-13-2021 ALLIED HEALTH Normal [facility] ALLIED HEALTH Normal [facility] ALLIED HEALTH Normal [facility] Basic metabolic 2000 panelon 10-13-2021 Anion gap [Moles/Vol] 11 mmol/L Normal 9-18 [facility] Comment on above: Order Comment: Speci men Type: BLOOD SPECIMENOrdering Facility: [facility] Address: [address] [place] [address] Performed By: #### 2 4321-2 ####[facility]ORYCLIA [id number] [address] [place] Calcium [Mass/Vol] 7.3 mg/dL Low 8.5-10.2 [facility] Comment on above: Order Comment: Speci men Type: BLOOD SPECIMENOrdering Facility: [facility] Address: [address] [place] [address] Performed By: #### 2 4321-2 ####[facility]ORYCLIA [id number] [address] STATES OF [facility] Chloride [Moles/Vol] 99 mmol/L Normal 97-105 [facility] Comment on above: Order Comment: Speci men Type: BLOOD SPECIMENOrdering Facility: [facility] Address: [address] [place] [address] Performed By: #### 2 4321-2 ####[facility]ORYCLIA [id number] [address] OF [facility] CO2 [Moles/Vol] 24 mmol/L Normal 22-30 [facility] Comment on above: Order Comment: Speci men Type: BLOOD SPECIMENOrdering Facility: [facility] Address: [address] [place] [address] Performed By: #### 2 4321-2 ####[facility]ORYCLIA [id number] [address] Creatinine [Mass/Vol] 0.46 mg/dL Low 0.58-0.96 [facility] Comment on above: Order Comment: Speci men Type: BLOOD SPECIMENOrdering Facility: [facility] Address: [address] [place] [address] Performed By: #### 2 4321-2 ####[facility]ORYCLIA [id number] [address] ESTIMATED GLOMERULAR FILTRATION RATE 101 mL/min/1.73m??? Normal >=60 [facility] Comment on above: Order Comment: Speci men Type: BLOOD SPECIMENOrdering Facility: [facility] Address: [address] [place] [address] Result Comment: Lulu mated Glomerular Filtration Rate [...] actual GFR. Performed By: #### 2 4321-2 ####[facility]ATORYCLIA [id number] [place] [address] [place] Glucose [Mass/Vol] 121 mg/dL High 74-99 [facility] Comment on above: Order Comment: Speci men Type: BLOOD SPECIMENOrdering Facility: [facility] Address: [address] [place] [address] Result Comment: The [place] [employer] (ADA) provides guidance for cutoff [...] Standards of Medical Care in Diabetes 2016, [place] [employer]. Diabetes Care. 2016.39(Suppl 1). Performed By: #### 2 4321-2 ####[facility]ORYCLIA [id number] [place] [address] [place] Potassium [Moles/Vol] 3.6 mmol/L Low 3.7-5.1 [facility] Comment on above: Order Comment: Speci men Type: BLOOD SPECIMENOrdering Facility: [facility] Address: [address] [place] [address] Performed By: #### 2 4321-2 ####[facility]ORYCLIA [id number] [place] [address] [place] Sodium [Moles/Vol] 134 mmol/L Low 136-144 [facility] Comment on above: Order Comment: Speci men Type: BLOOD SPECIMENOrdering Facility: [facility] Address: [address] [place] [address] Performed By: #### 2 4321-2 ####[facility]ORYCLIA [id number] [place] [address] [place] Urea nitrogen [Mass/Vol] 9 mg/dL Normal 7-21 [facility] Comment on above: Order Comment: Speci men Type: BLOOD SPECIMENOrdering Facility: [facility] Address: [address] [place] [address] Performed By: #### 2 4321-2 ####[facility]ORYCLIA [id number] [address] [place] CASE MANAGEMon 10-13-2021 CASE MANAGEM Normal [facility] CBC panel Auto (Bld)on 10-13 Erythrocyte distribution width (RBC) [Ratio] 13.5 % Normal 11.5-15.0 [facility] Comment on above: Order Comment: Speci men Type: BLOOD SPECIMENOrdering Facility: [facility] Address: [address] [place] [address] Performed By: #### 5 8410-2 ####[facility]ORYCLIA [id number] [address] [place] Hematocrit (Bld) [Volume fraction] 25.6 % Low 36.0-46.0 [facility] Comment on above: Order Comment: Speci men Type: BLOOD SPECIMENOrdering Facility: [facility] Address: [address] [place] [address] Performed By: #### 5 8410-2 ####[facility]ORYCLIA [id number] [address] [place] Hemoglobin (Bld) [Mass/Vol] 8.4 g/dL Low 11.5-15.5 [facility] Comment on above: Order Comment: Speci men Type: BLOOD SPECIMENOrdering Facility: [facility] Address: [address] [place] [address] Performed By: #### 5 8410-2 ####[facility]ORYCLIA [id number] [place] [address] [place] MCH (RBC) [Entitic mass] 32.1 pg Normal 26.0-34.0 [facility] Comment on above: Order Comment: Speci men Type: BLOOD SPECIMENOrdering Facility: [facility] Address: [address] [place] [address] Performed By: #### 5 8410-2 ####[facility]ORYCLIA [id number] [address] MCHC (RBC) [Mass/Vol] 32.8 g/dL Normal 30.5-36.0 [facility] Comment on above: Order Comment: Speci men Type: BLOOD SPECIMENOrdering Facility: [facility] Address: [address] [place] [address] Performed By: #### 5 8410-2 ####[facility]ORYCLIA [id number] [address] MCV (RBC) [Entitic vol] 97.7 fL Normal 80.0-100.0 [facility] Comment on above: Order Comment: Speci men Type: BLOOD SPECIMENOrdering Facility: [facility] Address: [address] [place] [address] Performed By: #### 5 8410-2 ####[facility]ORYCLIA [id number] [address] Nucleated RBC (Bld) [#/Vol] 10*3/uL Normal <0.01 [facility] Comment on above: Order Comment: Speci men Type: BLOOD SPECIMENOrdering Facility: [facility] Address: [address] [place] [address] Performed By: #### 5 8410-2 ####[facility]ORYCLIA [id number] [address] Platelet mean volume (Bld) [Entitic vol] 9.4 fL Normal 9.0-12.7 [facility] Comment on above: Order Comment: Speci men Type: BLOOD SPECIMENOrdering Facility: [facility] Address: [address] [place] [address] Performed By: #### 5 8410-2 ####[facility]ORYCLIA [id number] [place] [address] [place] Platelets (Bld) [#/Vol] 387 10*3/uL Normal 150-400 [facility] Comment on above: Order Comment: Speci men Type: BLOOD SPECIMENOrdering Facility: [facility] Address: [address] [place] [address] Performed By: #### 5 8410-2 ####[facility]ORYCLIA [id number] [place] [address] [place] RBC (Bld) [#/Vol] 2.62 10*6/uL Low 3.90-5.20 [facility] Comment on above: Order Comment: Speci men Type: BLOOD SPECIMENOrdering Facility: [facility] Address: [address] [place] [address] Performed By: #### 5 8410-2 ####[facility]ORYCLIA [id number] [address] WBC (Bld) [#/Vol] 16.34 10*3/uL High 3.70-11.00 [facility] Comment on above: Order Comment: Speci men Type: BLOOD SPECIMENOrdering Facility: [facility] Address: [address] [place] [address] Performed By: #### 5 8410-2 ####[facility]ORYCLIA [id number] [address] [place] CONSULTon 10-13-2021 CONSULT Normal [facility] NUTRITIONon 10-13-2021 NUTRITION Normal [facility] THERAPY NTon 10-13-2021 THERAPY NT Normal [facility] XR CHEST 1V FRONTALon 2021 XR CHEST 1V FRONTAL Normal [facility] XR CHEST 2V FRONTAL/LATon XR CHEST 2V FRONTAL/LAT Normal [facility] ALLIED HEALTHon 10-12-2021 ALLIED HEALTH Normal [facility] Basic metabolic 2000 panelon 10-12-2021 Anion gap [Moles/Vol] 10 mmol/L Normal 9-18 [facility] Comment on above: Order Comment: Speci men Type: BLOOD SPECIMENOrdering Facility: [facility] Address: [address] [address] Performed By: #### 2 4321-2 ####[facility]ORYCLIA [id number] [address] STATES OF [facility] Calcium [Mass/Vol] 7.2 mg/dL Low 8.5-10.2 [facility] Comment on above: Order Comment: Speci men Type: BLOOD SPECIMENOrdering Facility: [facility] Address: [address] [place] [address] Performed By: #### 2 4321-2 ####[facility]ORYCLIA [id number] [address] OF [facility] Chloride [Moles/Vol] 95 mmol/L Low 97-105 [facility] Comment on above: Order Comment: Speci men Type: BLOOD SPECIMENOrdering Facility: [facility] Address: [address] [place] [address] Performed By: #### 2 4321-2 ####[facility]ORYCLIA [id number] [address] CO2 [Moles/Vol] 26 mmol/L Normal 22-30 [facility] Comment on above: Order Comment: Speci men Type: BLOOD SPECIMENOrdering Facility: [facility] Address: [address] [place] [address] Performed By: #### 2 4321-2 ####[facility]ORYCLIA [id number] [address] [place] Creatinine [Mass/Vol] 0.38 mg/dL Low 0.58-0.96 [facility] Comment on above: Order Comment: Speci men Type: BLOOD SPECIMENOrdering Facility: [facility] Address: [address] [place] [address] Performed By: #### 2 4321-2 ####[facility]ORATORYCLIA [id number] [place] [address] [place] ESTIMATED GLOMERULAR FILTRATION RATE 105 mL/min/1.73m??? Normal >=60 [facility] Comment on above: Order Comment: Sharath lozano Type: BLOOD SPECIMENOrdering Facility: [facility] Address: [address] [address] Result Comment: Lulu mated Glomerular Filtration Rate [...] actual GFR. Performed By: #### 2 4321-2 ####[facility]ATORYCLIA [id number] [place] [address] [place] Glucose [Mass/Vol] 111 mg/dL High 74-99 [facility] Comment on above: Order Comment: Sharath lozano Type: BLOOD SPECIMENOrdering Facility: [facility] Address: [address] [address] Result Comment: The [employer] (ADA) provides guidance for cutoff [...] Standards of Medical Care in Diabetes 2016, [place] [employer]. Diabetes Care. 2016.39(Suppl 1). Performed By: #### 2 4321-2 ####[facility]ATORYCLIA [id number] [place] [address] [place] Potassium [Moles/Vol] 3.4 mmol/L Low 3.7-5.1 [facility] Comment on above: Order Comment: Sharath lozano Type: BLOOD SPECIMENOrdering Facility: [facility] Address: [address] [address] Performed By: #### 2 4321-2 ####[facility]ATORYCLIA [id number] [address] STATES [facility] Sodium [Moles/Vol] 131 mmol/L Low 136-144 [facility] Comment on above: Order Comment: Speci men Type: BLOOD SPECIMENOrdering Facility: [facility] Address: [address] [place] [address] Performed By: #### 2 4321-2 ####[facility]ATORYCLIA [id number] [place] [address] [place] Urea nitrogen [Mass/Vol] 10 mg/dL Normal 7-21 [facility] Comment on above: Order Comment: Speci men Type: BLOOD SPECIMENOrdering Facility: [facility] Address: [address] [place] [address] Performed By: #### 2 4321-2 ####[facility]ORYCLIA [id number] [address] [place] CASE MANAGEMon 10-12-2021 CASE MANAGEM Normal [facility] CBC panel Auto (Bld)on 10-12 Erythrocyte distribution width (RBC) [Ratio] 13.6 % Normal 11.5-15.0 [facility] Comment on above: Order Comment: Speci men Type: BLOOD SPECIMENOrdering Facility: [facility] Address: [address] [place] [address] Performed By: #### 5 8410-2 ####[facility]ORYCLIA [id number] [address] [place] Hematocrit (Bld) [Volume fraction] 24.8 % Low 36.0-46.0 [facility] Comment on above: Order Comment: Speci men Type: BLOOD SPECIMENOrdering Facility: [facility] Address: [address] [place] [address] Performed By: #### 5 8410-2 ####[facility]ORYCLIA [id number] [address] Hemoglobin (Bld) [Mass/Vol] 8.6 g/dL Low 11.5-15.5 [facility] Comment on above: Order Comment: Speci men Type: BLOOD SPECIMENOrdering Facility: [facility] Address: [address] [place] [address] Performed By: #### 5 8410-2 ####[facility]ORYCLIA [id number] [address] MCH (RBC) [Entitic mass] 32.8 pg Normal 26.0-34.0 [facility] Comment on above: Order Comment: Speci men Type: BLOOD SPECIMENOrdering Facility: [facility] Address: [address] [place] [address] Performed By: #### 5 8410-2 ####[facility]ORYCLIA [id number] [address] MCHC (RBC) [Mass/Vol] 34.7 g/dL Normal 30.5-36.0 [facility] Comment on above: Order Comment: Speci men Type: BLOOD SPECIMENOrdering Facility: [facility] Address: [address] [place] [address] Performed By: #### 5 8410-2 ####[facility]ATORYCLIA [id number] [address] MCV (RBC) [Entitic vol] 94.7 fL Normal 80.0-100.0 [facility] Comment on above: Order Comment: Speci men Type: BLOOD SPECIMENOrdering Facility: [facility] Address: [address] [place] [address] Performed By: #### 5 8410-2 ####[facility]ORYCLIA [id number] [address] Nucleated RBC (Bld) [#/Vol] 10*3/uL Normal <0.01 [facility] Comment on above: Order Comment: Speci men Type: BLOOD SPECIMENOrdering Facility: [facility] Address: [address] Performed By: #### 5 8410-2 ####[facility]ATORYCLIA [id number] [address] Platelet mean volume (Bld) [Entitic vol] 9.5 fL Normal 9.0-12.7 [facility] Comment on above: Order Comment: Speci men Type: BLOOD SPECIMENOrdering Facility: [facility] Address: [address] [place] [address] Performed By: #### 5 8410-2 ####[facility]ATORYCLIA [id number] [address] [place] Platelets (Bld) [#/Vol] 338 10*3/uL Normal 150-400 [facility] Comment on above: Order Comment: Speci men Type: BLOOD SPECIMENOrdering Facility: [facility] Address: [address] [place] [address] Performed By: #### 5 8410-2 ####[facility]ATORYCLIA [id number] [address] [place] RBC (Bld) [#/Vol] 2.62 10*6/uL Low 3.90-5.20 [facility] Comment on above: Order Comment: Speci men Type: BLOOD SPECIMENOrdering Facility: [facility] Address: [address] [place] [address] Performed By: #### 5 8410-2 ####[facility]ATORYCLIA [id number] [address] [place] WBC (Bld) [#/Vol] 15.12 10*3/uL High 3.70-11.00 [facility] Comment on above: Order Comment: Speci men Type: BLOOD SPECIMENOrdering Facility: [facility] Address: [address] [place] [address] Performed By: #### 5 8410-2 ####[facility]ATORYCLIA [id number] [address] CNPNon 10-12-2021 CNPN Normal [facility] THERAPY NTon 10-12-2021 THERAPY NT Normal [facility] XR CHEST 1V FRONTALon 2021 XR CHEST 1V FRONTAL Normal [facility] ALLIED HEALTHon 10-11-2021 ALLIED HEALTH Normal [facility] ALLIED HEALTH Normal [facility] ALLIED HEALTH Normal [facility] ALLIED HEALTH Normal [facility] ANES POSTPROC EVALon 022 ANES POSTPROC EVAL Normal [facility] Bacteria Bld Culton 10-12-19 22 Bacteria identified Cx Nom (Bld) CULTURE, BLOOD: No growth 5 days Normal [facility] Comment on above: Performed By: #### 6 00-7 ####[facility]ATORYCLIA [id number] [place] [address] [place] Bacteria identified Cx Nom (Bld) CULTURE, BLOOD: No growth 5 days Normal [facility] Comment on above: Performed By: #### 6 00-7 ####[facility]ATORYCLIA [id number] [place] [address] [place] Basic metabolic 2000 panelon 10-11-2021 Anion gap [Moles/Vol] 9 mmol/L Normal 9-18 [facility] Comment on above: Order Comment: Speci men Type: BLOOD SPECIMENOrdering Facility: [facility] Address: [address] [place] [address] Performed By: #### 2 4321-2 ####[facility]ATORYCLIA [id number] [place] [address] [place] Calcium [Mass/Vol] 7.5 mg/dL Low 8.5-10.2 [facility] Comment on above: Order Comment: Speci men Type: BLOOD SPECIMENOrdering Facility: [facility] Address: [address] [place] [address] Performed By: #### 2 4321-2 ####[facility]ATORYCLIA [id number] [place] [address] [place] Chloride [Moles/Vol] 94 mmol/L Low 97-105 [facility] Comment on above: Order Comment: Speci men Type: BLOOD SPECIMENOrdering Facility: [facility] Address: [address] [place] [address] Performed By: #### 2 4321-2 ####[facility]ATORYCLIA [id number] [address] STATES OF [facility] CO2 [Moles/Vol] 27 mmol/L Normal 22-30 [facility] Comment on above: Order Comment: Speci men Type: BLOOD SPECIMENOrdering Facility: [facility] Address: [address] [place] [address] Performed By: #### 2 4321-2 ####[facility] [id number] [address] Creatinine [Mass/Vol] 0.46 mg/dL Low 0.58-0.96 [facility] Comment on above: Order Comment: Speci men Type: BLOOD SPECIMENOrdering Facility: [facility] Address: [address] [place] [address] Performed By: #### 2 4321-2 ####[facility]ORYCLIA [id number] [address] ESTIMATED GLOMERULAR FILTRATION RATE 101 mL/min/1.73m??? Normal >=60 [facility] Comment on above: Order Comment: Speci men Type: BLOOD SPECIMENOrdering Facility: [facility] Address: [address] [place] [address] Result Comment: Lulu mated Glomerular Filtration Rate [...] actual GFR. Performed By: #### 2 4321-2 ####[facility]ATORYCLIA [id number] [place] [address] [place] Glucose [Mass/Vol] 125 mg/dL High 74-99 [facility] Comment on above: Order Comment: Speci men Type: BLOOD SPECIMENOrdering Facility: [facility] Address: [address] [place] [address] Result Comment: The [place] [employer] (ADA) provides guidance for cutoff [...] Standards of Medical Care in Diabetes 2016, [employer]. Diabetes Care. 2016.39(Suppl 1). Performed By: #### 2 4321-2 ####[facility]ATORYCLIA [id number] [place] [address] [place] Potassium [Moles/Vol] 3.8 mmol/L Normal 3.7-5.1 [facility] Comment on above: Order Comment: Sharath lozano Type: BLOOD SPECIMENOrdering Facility: [facility] Address: [address] [place] [address] Performed By: #### 2 4321-2 ####[facility]ATORYCLIA [id number] [place] [address] [place] Sodium [Moles/Vol] 130 mmol/L Low 136-144 [facility] Comment on above: Order Comment: Speci men Type: BLOOD SPECIMENOrdering Facility: [facility] Address: [address] [place] [address] Performed By: #### 2 4321-2 ####[facility]ORYCLIA [id number] [place] [address] [place] Urea nitrogen [Mass/Vol] 7 mg/dL Normal 7-21 [facility] Comment on above: Order Comment: Speci men Type: BLOOD SPECIMENOrdering Facility: [facility] Address: [address] [place] [address] Performed By: #### 2 4321-2 ####[facility]ATORYCLIA [id number] [address] CBC panel Auto (Bld)on 10-11 Erythrocyte distribution width (RBC) [Ratio] 13.5 % Normal 11.5-15.0 [facility] Comment on above: Order Comment: Speci men Type: BLOOD SPECIMENOrdering Facility: [facility] Address: [address] [place] [address] Performed By: #### 5 8410-2 ####[facility]ATORYCLIA [id number] [address] Hematocrit (Bld) [Volume fraction] 25.4 % Low 36.0-46.0 [facility] Comment on above: Order Comment: Speci men Type: BLOOD SPECIMENOrdering Facility: [facility] Address: [address] [place] [address] Performed By: #### 5 8410-2 ####[facility]ORYCLIA [id number] [address] Hemoglobin (Bld) [Mass/Vol] 8.8 g/dL Low 11.5-15.5 [facility] Comment on above: Order Comment: Speci men Type: BLOOD SPECIMENOrdering Facility: [facility] Address: [address] [place] [address] Performed By: #### 5 8410-2 ####[facility]ORYCLIA [id number] [address] MCH (RBC) [Entitic mass] 32.5 pg Normal 26.0-34.0 [facility] Comment on above: Order Comment: Speci men Type: BLOOD SPECIMENOrdering Facility: [facility] Address: [address] [place] [address] Performed By: #### 5 8410-2 ####[facility]ATORYCLIA [id number] [address] STATES OF [facility] MCHC (RBC) [Mass/Vol] 34.6 g/dL Normal 30.5-36.0 [facility] Comment on above: Order Comment: Speci men Type: BLOOD SPECIMENOrdering Facility: [facility] Address: [address] [place] [address] Performed By: #### 5 8410-2 ####[facility]ATORYCLIA [id number] [address] [place] MCV (RBC) [Entitic vol] 93.7 fL Normal 80.0-100.0 [facility] Comment on above: Order Comment: Speci men Type: BLOOD SPECIMENOrdering Facility: [facility] Address: [address] [place] [address] Performed By: #### 5 8410-2 ####[facility]ORYCLIA [id number] [address] [place] Nucleated RBC (Bld) [#/Vol] 10*3/uL Normal <0.01 [facility] Comment on above: Order Comment: Speci men Type: BLOOD SPECIMENOrdering Facility: [facility] Address: [address] [place] [address] Performed By: #### 5 8410-2 ####[facility]ORYCLIA [id number] [address] [place] Platelet mean volume (Bld) [Entitic vol] 9.7 fL Normal 9.0-12.7 [facility] Comment on above: Order Comment: Speci men Type: BLOOD SPECIMENOrdering Facility: [facility] Address: [address] [place] [address] Performed By: #### 5 8410-2 ####[facility]ATORYCLIA [id number] [address] [place] Platelets (Bld) [#/Vol] 310 10*3/uL Normal 150-400 [facility] Comment on above: Order Comment: Speci men Type: BLOOD SPECIMENOrdering Facility: [facility] Address: [address] [place] [address] Performed By: #### 5 8410-2 ####[facility]ATORYCLIA [id number] [address] RBC (Bld) [#/Vol] 2.71 10*6/uL Low 3.90-5.20 [facility] Comment on above: Order Comment: Speci men Type: BLOOD SPECIMENOrdering Facility: [facility] Address: [address] [place] [address] Performed By: #### 5 8410-2 ####[facility]ATORYCLIA [id number] [address] WBC (Bld) [#/Vol] 19.17 10*3/uL High 3.70-11.00 [facility] Comment on above: Order Comment: Speci men Type: BLOOD SPECIMENOrdering Facility: [facility] Address: [address] [place] [address] Performed By: #### 5 8410-2 ####[facility]ATORYCLIA [id number] [address] CONSULTon 10-11-2021 CONSULT HNO ID: [id number] Author: Corin Quinn MD Service: [facility] Author Type: Physician Type: Consults Filed: 10/11/2021 3:56 PM Note Text: Consul tdictated. No intervention Normal [facility] CONSULT Normal [facility] MRI BRAIN WO/W IVCONon 10-11 MRI BRAIN WO/W IVCON Normal [facility] SEPSIS LACTATEon 10-11-2021 Lactate [Moles/Vol] 1.0 mmol/L Normal 0.5-2.0 [facility] Comment on above: Order Comment: Speci men Type: BLOOD SPECIMENOrdering Facility: [facility] Address: [address] [place] [address] Performed By: #### S LACT ####[facility]ORYCLIA [id number] [address] [place] THERAPY NTon 10-11-2021 THERAPY NT Normal [facility] THERAPY NT Normal [facility] XR CHEST 1V FRONTALon 2021 XR CHEST 1V FRONTAL Normal [facility] ALLIED HEALTHon 10-10-2021 ALLIED HEALTH Normal [facility] ALLIED HEALTH Normal [facility] Basic metabolic 2000 panelon 10-10-2021 Anion gap [Moles/Vol] 13 mmol/L Normal 9-18 [facility] Comment on above: Order Comment: Speci men Type: BLOOD SPECIMENOrdering Facility: [facility] Address: [address] [place] [address] Performed By: #### 2 4321-2, 2776-04, ####[facility]ATORYCLIA [id number] [place] [address] [place] Calcium [Mass/Vol] 7.1 mg/dL Low 8.5-10.2 [facility] Comment on above: Order Comment: Speci men Type: BLOOD SPECIMENOrdering Facility: [facility] Address: [address] [place] [address] Performed By: #### 2 4321-2, 2776-04, ####[facility]ATORYCLIA [id number] [place] [address] [place] Chloride [Moles/Vol] 96 mmol/L Low 97-105 [facility] Comment on above: Order Comment: Speci men Type: BLOOD SPECIMENOrdering Facility: [facility] Address: [address] [address] Performed By: #### 2 4321-2, 2776-04, ####[facility]ATORYCLIA [id number] [place] [address] [place] CO2 [Moles/Vol] 23 mmol/L Normal 22-30 [facility] Comment on above: Order Comment: Speci men Type: BLOOD SPECIMENOrdering Facility: [facility] Address: [address] [address] Performed By: #### 2 4321-2, 2777-1, ####[facility]CL[facility] [id number] [place] [address] [place] [facility] Creatinine [Mass/Vol] 0.52 mg/dL Low 0.58-0.96 [facility] Comment on above: Order Comment: Specmoe lozano Type: BLOOD SPECIMENOrdering Facility: [facility] Address: [address] [place], [place] [address] Performed By: #### 2 4321-2, 2777-, ####[facility]CL[facility] [id number] [place] [address] [facility] ESTIMATED GLOMERULAR FILTRATION RATE 98 mL/min/1.73m??? Normal >=60 [facility] Comment on above: Order Comment: Sharath lozano Type: BLOOD SPECIMENOrdering Facility: [facility] Address: [address] [place] [address] Result Comment: Lulu mated Glomerular Filtration Rate [...] GFR. Performed By: #### 2 4321-2, 2777-, ####[facility]ORYCLIA [id number] [place] [address] [place] Glucose [Mass/Vol] 126 mg/dL High 74-99 [facility] Comment on above: Order Comment: Sharath marta Type: BLOOD SPECIMENOrdering Facility: [facility] Address: [address] [id number] Result Comment: The [employer] (ADA) provides guidance for cutoff [...] Standards of Medical Care in Diabetes 2016, [employer]. Diabetes Care. 2016.39(Suppl 1). Performed By: #### 2 4321-2, 277-, ####[facility]ORYCLIA [id number] [place] [address] [place] Potassium [Moles/Vol] 3.8 mmol/L Normal 3.7-5.1 [facility] Comment on above: Order Comment: Sharath lozano Type: BLOOD SPECIMENOrdering Facility: [facility] Address: [address] [place] [address] Performed By: #### 2 4321-2, 2776-04, ####[facility] [id number] [address] [place] Sodium [Moles/Vol] 132 mmol/L Low 136-144 [facility] Comment on above: Order Comment: Sharath lozano Type: BLOOD SPECIMENOrdering Facility: [facility] Address: [address] [place] [address] Performed By: #### 2 4321-2, 2776-04, ####[facility]ORYCLIA [id number] [place] [address] [place] Urea nitrogen [Mass/Vol] 9 mg/dL Normal 7- [facility] Comment on above: Order Comment: Sharath lozano Type: BLOOD SPECIMENOrdering Facility: [facility] Address: [address] [place] [address] Performed By: #### 2 4321-2, 2776-04, ####[facility]ORYCLIA [id number] [place] [address] [place] CASE MGT INIT ASSESon 2021 CASE MGT INIT ASSES Normal [facility] CBC panel Auto (Bld)on 10-10 Erythrocyte distribution width (RBC) [Ratio] 13.2 % Normal 11.5-15.0 [facility] Comment on above: Order Comment: Speci men Type: BLOOD SPECIMENOrdering Facility: [facility] Address: [address] [place] [address] Performed By: #### 5 8410-2 ####[facility]ORYCLIA [id number] [address] Hematocrit (Bld) [Volume fraction] 26.5 % Low 36.0-46.0 [facility] Comment on above: Order Comment: Speci men Type: BLOOD SPECIMENOrdering Facility: [facility] Address: [address] [place] [address] Performed By: #### 5 8410-2 ####[facility]ORYCLIA [id number] [address] OF [facility] Hemoglobin (Bld) [Mass/Vol] 9.3 g/dL Low 11.5-15.5 [facility] Comment on above: Order Comment: Speci men Type: BLOOD SPECIMENOrdering Facility: [facility] Address: [address] [place] [address] Performed By: #### 5 8410-2 ####[facility]ORYCLIA [id number] [address] STATES [facility] MCH (RBC) [Entitic mass] 33.0 pg Normal 26.0-34.0 [facility] Comment on above: Order Comment: Speci men Type: BLOOD SPECIMENOrdering Facility: [facility] Address: [address] [place] [address] Performed By: #### 5 8410-2 ####[facility]ORYCLIA [id number] [address] MCHC (RBC) [Mass/Vol] 35.1 g/dL Normal 30.5-36.0 [facility] Comment on above: Order Comment: Speci men Type: BLOOD SPECIMENOrdering Facility: [facility] Address: [address] [address] Performed By: #### 5 8410-2 ####[facility]ORYCLIA [id number] [address] MCV (RBC) [Entitic vol] 94.0 fL Normal 80.0-100.0 [facility] Comment on above: Order Comment: Speci men Type: BLOOD SPECIMENOrdering Facility: [facility] Address: [address] [place] [address] Performed By: #### 5 8410-2 ####[facility]ORYCLIA [id number] [address] Nucleated RBC (Bld) [#/Vol] 10*3/uL Normal <0.01 [facility] Comment on above: Order Comment: Speci men Type: BLOOD SPECIMENOrdering Facility: [facility] Address: [address] [place] [address] Performed By: #### 5 8410-2 ####[facility]ORYCLIA [id number] [address] Platelet mean volume (Bld) [Entitic vol] 9.6 fL Normal 9.0-12.7 [facility] Comment on above: Order Comment: Speci men Type: BLOOD SPECIMENOrdering Facility: [facility] Address: [address] [place] [address] Performed By: #### 5 8410-2 ####[facility]ORYCLIA [id number] [address] Platelets (Bld) [#/Vol] 325 10*3/uL Normal 150-400 [facility] Comment on above: Order Comment: Speci men Type: BLOOD SPECIMENOrdering Facility: [facility] Address: [address] [place] [address] Performed By: #### 5 8410-2 ####[facility]ATORYCLIA [id number] [place] [address] [place] RBC (Bld) [#/Vol] 2.82 10*6/uL Low 3.90-5.20 [facility] Comment on above: Order Comment: Speci men Type: BLOOD SPECIMENOrdering Facility: [facility] Address: [address] [place] [address] Performed By: #### 5 8410-2 ####[facility]ORYCLIA [id number] [address] [place] WBC (Bld) [#/Vol] 14.72 10*3/uL High 3.70-11.00 [facility] Comment on above: Order Comment: Speci men Type: BLOOD SPECIMENOrdering Facility: [facility] Address: [address] [place] [address] Performed By: #### 5 8410-2 ####[facility]ORYCLIA [id number] [address] CONSULTon 10-10-2021 CONSULT Normal [facility] Calcium.ionized [Moles/Vol]o n 10-10-2021 Calcium.ionized (BldV) [Mass/Vol] 0.96 mmol/L Low 1.08-1.30 [facility] Comment on above: Order Comment: Speci men Type: BLOOD SPECIMENOrdering Facility: [facility] Address: [address] [place] [address] Performed By: #### 1 995-0 ####[facility]ORYCLIA [id number] [address] Calcium.ionized adjusted to pH 7.4 (Bld) [Moles/Vol] 0.98 mmol/L Low 1.08-1.30 [facility] Comment on above: Order Comment: Speci men Type: BLOOD SPECIMENOrdering Facility: [facility] Address: [address] [place] [address] Performed By: #### 1 995-0 ####[facility]ORYCLIA [id number] [address] Magnesium SerPl-mCncon 10-10 Magnesium [Mass/Vol] 1.3 mg/dL Low 1.7-2.3 [facility] Comment on above: Order Comment: Speci men Type: BLOOD SPECIMENOrdering Facility: [facility] Address: [address] [place] [address] Performed By: #### 2 4321-2, 2777-1, 45386-5 ####[facility]ORYCLIA [id number] [address] [place] Phosphate SerPl-mCncon 10-10 Phosphate [Mass/Vol] 4.0 mg/dL Normal 2.7-4.8 [facility] Comment on above: Order Comment: Speci men Type: BLOOD SPECIMENOrdering Facility: [facility] Address: [address] [place] [address] Performed By: #### 2 4321-2, 2777-1, 54586-2 ####[facility]ORYCLIA [id number] [place] [address] [place] US KIDNEY/BLADDERon 10-11-19 US KIDNEY/BLADDER Normal [facility] Urinalysis complete panel (U )on 10-10-2021 Bilirubin Ql (U) Negative Normal Negative [facility] Comment on above: Order Comment: Speci men Type: URINE SPECIMENOrdering Facility: [facility] Address: [address] [place] [address] Performed By: #### 2 4356-8 ####[facility]ORYCLIA [id number] [address] [place] Clarity (Unsp spec) Clear Normal Clear [facility] Comment on above: Order Comment: Speci men Type: URINE SPECIMENOrdering Facility: [facility] Address: [address] [place] [address] Performed By: #### 2 4356-8 ####[facility]ORYCLIA [id number] [address] [place] Color (U) Colorless Normal yellow [facility] Comment on above: Order Comment: Speci men Type: URINE SPECIMENOrdering Facility: [facility] Address: [address] [place] [address] Performed By: #### 2 4356-8 ####[facility]ORYCLIA [id number] [address] [place] Glucose Test strip (U) [Mass/Vol] Negative Normal Negative [facility] Comment on above: Order Comment: Speci men Type: URINE SPECIMENOrdering Facility: [facility] Address: [address] [place] [address] Performed By: #### 2 4356-8 ####[facility] LABORATORYCLIA [id number] [address] Hemoglobin Ql (U) Trace Abnormal Negative [facility] Comment on above: Order Comment: Speci men Type: URINE SPECIMENOrdering Facility: [facility] Address: [address] [place] [address] Performed By: #### 2 4356-8 ####[facility]ORYCLIA [id number] [address] [place] Ketones Ql (U) Negative Normal Negative [facility] Comment on above: Order Comment: Speci men Type: URINE SPECIMENOrdering Facility: [facility] Address: [address] [place] [address] Performed By: #### 2 4356-8 ####[facility]ATORYCLIA [id number] [address] Leukocyte esterase Test strip Ql (U) 250 [place]/mL Abnormal Negative [facility] Comment on above: Order Comment: Speci men Type: URINE SPECIMENOrdering Facility: [facility] Address: [address] [place] [address] Performed By: #### 2 4356-8 ####[facility]ATORYCLIA [id number] [place] [address] [place] Nitrite Ql (U) Negative Normal Negative [facility] Comment on above: Order Comment: Speci men Type: URINE SPECIMENOrdering Facility: [facility] Address: [address] [place] [address] Performed By: #### 2 4356-8 ####[facility]ATORYCLIA [id number] [address] pH (U) 6.5 [pH] Normal 5.0-8.0 [facility] Comment on above: Order Comment: Speci men Type: URINE SPECIMENOrdering Facility: [facility] Address: [address] [place] [address] Performed By: #### 2 4356-8 ####[facility]ATORYCLIA [id number] [address] [place] [facility] Protein (U) [Mass/Vol] Negative Normal Negative [facility] Comment on above: Order Comment: Speci men Type: URINE SPECIMENOrdering Facility: [facility] Address: [address] [place] [address] Performed By: #### 2 4356-8 ####[facility]ATORYCLIA [id number] [address] [place] [facility] RBC LM.HPF (Urine sed) [#/Area] 3-5 /HPF Abnormal 0-3 /HPF [facility] Comment on above: Order Comment: Speci men Type: URINE SPECIMENOrdering Facility: [facility] Address: [address] [place] [address] Performed By: #### 2 4356-8 ####[facility]ATORYCLIA [id number] [address] Specific gravity (U) [Rel density] 1.007 Normal 1.005-1.030 [facility] Comment on above: Order Comment: Speci men Type: URINE SPECIMENOrdering Facility: [facility] Address: [address] [place] [address] Performed By: #### 2 4356-8 ####[facility]ATORYCLIA [id number] [address] Urobilinogen Ql (U) Normal Normal Negative [facility] Comment on above: Order Comment: Speci men Type: URINE SPECIMENOrdering Facility: [facility] Address: [address] [place] [address] Performed By: #### 2 4356-8 ####[facility]ATORYCLIA [id number] [place] [address] [place] WBC LM.HPF (Urine sed) [#/Area] 6-10 /HPF Abnormal 0-5 /HPF [facility] Comment on above: Order Comment: Speci men Type: URINE SPECIMENOrdering Facility: [facility] Address: [address] [place] [address] Performed By: #### 2 4356-8 ####[facility]ATORYCLIA [id number] [address] [place] XR CHEST 1V FRONTALon 2021 XR CHEST 1V FRONTAL Normal [facility] ALLIED HEALTHon 10-09-2021 ALLIED HEALTH Normal [facility] ALLIED HEALTH Normal [facility] ANES PRE-OPon 10-09-2021 ANES PRE-OP Normal [facility] ANES PRE-OP Normal [facility] ARTERIAL BLOOD GASESon 10-09 BASE DEFICIT, ARTERIAL -1 mmol/L Normal -2-0 [facility] Comment on above: Order Comment: Speci men Type: ARTERIAL BLOOD SPECIMENOrdering Facility: [facility] Address: [address] [place] [address] Performed By: #### A LLBG ####[facility]ORYCLIA [id number] [place] [address] [place] Body temperature 96.08 [degF] Normal [facility] Comment on above: Order Comment: Speci men Type: ARTERIAL BLOOD SPECIMENOrdering Facility: [facility] Address: [address] [place] [address] Performed By: #### A LLBG ####[facility]ORYCLIA [id number] [place] [address] [place] CALCIUM IONIZED, PH CORRECTED 1.07 mmol/L Low 1.08-1.30 [facility] Comment on above: Order Comment: Speci men Type: ARTERIAL BLOOD SPECIMENOrdering Facility: [facility] Address: [address] [place] [address] Performed By: #### A LLBG ####[facility]ORYCLIA [id number] [place] [address] [place] Calcium.ionized (BldV) [Mass/Vol] 1.07 mmol/L Low 1.08-1.30 [facility] Comment on above: Order Comment: Speci men Type: ARTERIAL BLOOD SPECIMENOrdering Facility: [facility] Address: [address] [place] [address] Performed By: #### A LLBG ####[facility]ATORYCLIA [id number] [address] [place] Carboxyhemoglobin (BldA) [Mass fraction] 1.2 % Normal 0.0-2.0 [facility] Comment on above: Order Comment: Speci men Type: ARTERIAL BLOOD SPECIMENOrdering Facility: [facility] Address: [address] [place] [address] Result Comment: Carb oxyhemoglobin Reference Range for Smokers: 2.0-8.0% Performed By: #### A LLBG ####[facility]ORYCLIA [id number] [address] [place] CO2 (Bld) [Partial pressure] 39 mm Hg Normal 36-46 [facility] Comment on above: Order Comment: Speci men Type: ARTERIAL BLOOD SPECIMENOrdering Facility: [facility] Address: [address] [place] [address] Performed By: #### A LLBG ####[facility]ORYCLIA [id number] [address] [place] CO2 [Moles/Vol] 22 mmol/L Normal 22-28 [facility] Comment on above: Order Comment: Speci men Type: ARTERIAL BLOOD SPECIMENOrdering Facility: [facility] Address: [address] [place] [address] Performed By: #### A LLBG ####[facility]ORYCLIA [id number] [address] [place] CO2 adjusted to patient's actual temperature (Bld) [Partial pressure] 36 mmHg Normal 36-46 [facility] Comment on above: Order Comment: Speci men Type: ARTERIAL BLOOD SPECIMENOrdering Facility: [facility] Address: [address] [place] [address] Performed By: #### A LLBG ####[facility]ORYCLIA [id number] [address] [place] Glucose [Mass/Vol] 164 mg/dL High 60-105 [facility] Comment on above: Order Comment: Speci men Type: ARTERIAL BLOOD SPECIMENOrdering Facility: [facility] Address: [address] [place] [address] Performed By: #### A LLBG ####[facility]ATORYCLIA [id number] [address] [place] HCO3 (Bld) [Moles/Vol] 24 mmol/L Normal 22-26 [facility] Comment on above: Order Comment: Speci men Type: ARTERIAL BLOOD SPECIMENOrdering Facility: [facility] Address: [address] [place] [address] Performed By: #### A LLBG ####[facility]ORYCLIA [id number] [address] [place] Hematocrit (Bld) [Volume fraction] 32.9 % Low 36.0-46.0 [facility] Comment on above: Order Comment: Speci men Type: ARTERIAL BLOOD SPECIMENOrdering Facility: [facility] Address: [address] [place] [address] Performed By: #### A LLBG ####[facility]ORYCLIA [id number] [address] [place] Hemoglobin (Bld) [Mass/Vol] 10.6 g/dL Low 11.5-15.5 [facility] Comment on above: Order Comment: Speci men Type: ARTERIAL BLOOD SPECIMENOrdering Facility: [facility] Address: [address] [place] [address] Performed By: #### A LLBG ####[facility]ORYCLIA [id number] [address] [place] Methemoglobin (Bld) [Mass fraction] 1.1 % Normal 0.0-1.5 [facility] Comment on above: Order Comment: Speci men Type: ARTERIAL BLOOD SPECIMENOrdering Facility: [facility] Address: [address] [place] [address] Performed By: #### A LLBG ####[facility]ORYCLIA [id number] [address] O2 THERAPY RA=Room Air Normal [facility] Comment on above: Order Comment: Speci men Type: ARTERIAL BLOOD SPECIMENOrdering Facility: [facility] Address: [address] [place] [address] Performed By: #### A LLBG ####[facility]ORYCLIA [id number] [address] [place] Oxygen (Bld) [Partial pressure] 75 mm Hg Low 85-95 [facility] Comment on above: Order Comment: Speci men Type: ARTERIAL BLOOD SPECIMENOrdering Facility: [facility] Address: [address] [place] [address] Performed By: #### A LLBG ####[facility]ATORYCLIA [id number] [address] [place] Oxygen adjusted to patient's actual temperature (Bld) [Partial pressure] 69 mmHg Low 85-95 [facility] Comment on above: Order Comment: Speci men Type: ARTERIAL BLOOD SPECIMENOrdering Facility: [facility] Address: [address] [place] [address] Performed By: #### A LLBG ####[facility]ORYCLIA [id number] [address] [place] OXYGEN SATURATION, ARTERIAL 95 % Normal 95-98 [facility] Comment on above: Order Comment: Speci men Type: ARTERIAL BLOOD SPECIMENOrdering Facility: [facility] Address: [address] [place] [address] Performed By: #### A LLBG ####[facility]ORYCLIA [id number] [address] Oxyhemoglobin (BldA) [Mass fraction] 93 % Low 95-98 [facility] Comment on above: Order Comment: Speci men Type: ARTERIAL BLOOD SPECIMENOrdering Facility: [facility] Address: [address] [place] [address] Performed By: #### A LLBG ####[facility]ORYCLIA [id number] [address] [place] pH (Bld) 7.40 [pH] Normal 7.35-7.45 [facility] Comment on above: Order Comment: Speci men Type: ARTERIAL BLOOD SPECIMENOrdering Facility: [facility] Address: [address] [place] [address] Performed By: #### A LLBG ####[facility]ORYCLIA [id number] [address] pH adjusted to patient's actual temperature (Bld) 7.42 Normal 7.35-7.45 [facility] Comment on above: Order Comment: Speci men Type: ARTERIAL BLOOD SPECIMENOrdering Facility: [facility] Address: [address] [place] [address] Performed By: #### A LLBG ####[facility]ORYCLIA [id number] [address] [place] Potassium [Moles/Vol] 2.7 mmol/L Low 3.5-5.0 [facility] Comment on above: Order Comment: Speci men Type: ARTERIAL BLOOD SPECIMENOrdering Facility: [facility] Address: [address] [place] [address] Performed By: #### A LLBG ####[facility]ORYCLIA [id number] [address] [place] Sodium [Moles/Vol] 133 mmol/L Low 136-144 [facility] Comment on above: Order Comment: Speci men Type: ARTERIAL BLOOD SPECIMENOrdering Facility: [facility] Address: [address] [place] [address] Performed By: #### A LLBG ####[facility]ORYCLIA [id number] [place] [address] [place] Basic metabolic 2000 panelon 10-09-2021 Anion gap [Moles/Vol] 15 mmol/L Normal 9-18 [facility] Comment on above: Order Comment: Speci men Type: BLOOD SPECIMENOrdering Facility: [facility] Address: [address] [place] [address] Performed By: #### 1 9123-9, 2777-1, 18182-9 ####[facility]ORYCLIA [id number] [place] [address] [place] Calcium [Mass/Vol] 8.4 mg/dL Low 8.5-10.2 [facility] Comment on above: Order Comment: Speci men Type: BLOOD SPECIMENOrdering Facility: [facility] Address: [address] [place] [address] Performed By: #### 1 9123-9, 2777-1, 73584-2 ####[facility]ORYCLIA [id number] [place] [address] [place] Chloride [Moles/Vol] 96 mmol/L Low 97-105 [facility] Comment on above: Order Comment: Speci men Type: BLOOD SPECIMENOrdering Facility: [facility] Address: [address] [place] [address] Performed By: #### 1 9123-9, 2777-1, 43801-7 ####[facility]ORYCLIA [id number] [place] [address] [place] CO2 [Moles/Vol] 23 mmol/L Normal 22-30 [facility] Comment on above: Order Comment: Speci men Type: BLOOD SPECIMENOrdering Facility: [facility] Address: [address] [place], [place] [id number] Performed By: #### 1 9123-9, 2777-1, 29940-7 ####[facility]PITALIA [id number] [address] STATES OF [facility] Creatinine [Mass/Vol] 0.37 mg/dL Low 0.58-0.96 [facility] Comment on above: Order Comment: Sharath lozano Type: BLOOD SPECIMENOrdering Facility: [facility] Address: [address] [address] Performed By: #### 1 9123-9, 2777-, 78961-0 ####[facility]ITALIA [id number] [address] ESTIMATED GLOMERULAR FILTRATION RATE 106 mL/min/1.73m??? Normal >=60 [facility] Comment on above: Order Comment: Sharath lozano Type: BLOOD SPECIMENOrdering Facility: [facility] Address: [address] [address] Result Comment: Lulu mated Glomerular Filtration Rate [...] GFR. Performed By: #### 1 9123-9, 2777-, 93183-6 ####[facility]ITALIA [id number] [address] STATES OF [facility] Glucose [Mass/Vol] 156 mg/dL High 74-99 [facility] Comment on above: Order Comment: Sharath lozano Type: BLOOD SPECIMENOrdering Facility: [facility] Address: [address] [address] Result Comment: The [place] [employer] (ADA) provides guidance for cutoff [...] Standards of Medical Care in Diabetes 2016, [place] [employer]. Diabetes Care. 2016.39(Suppl 1). Performed By: #### 1 9123-9, 2777-, 41001-4 ####[facility]ORYCLIA [id number] [place] [address] [place] Potassium [Moles/Vol] 3.3 mmol/L Low 3.7-5.1 [facility] Comment on above: Order Comment: Sharath lozano Type: BLOOD SPECIMENOrdering Facility: [facility] Address: [address] [place] [address] Performed By: #### 1 9123-9, 27710-20, 17966-6 ####[facility] [id number] [place] [address] [place] Sodium [Moles/Vol] 134 mmol/L Low 136-144 [facility] Comment on above: Order Comment: Sharath lozano Type: BLOOD SPECIMENOrdering Facility: [facility] Address: [address] [place] [address] Performed By: #### 1 9123-9, 2777, 75930-8 ####[facility]ORYCLIA [id number] [place] [address] [place] Urea nitrogen [Mass/Vol] 7 mg/dL Normal 7-21 [facility] Comment on above: Order Comment: Cathyi marta Type: BLOOD SPECIMENOrdering Facility: [facility] Address: [address] [place] [address] Performed By: #### 1 9123-9, 2777, 00628-9 ####[facility]ORYCLIA [id number] [place] [address] [place] Anion gap [Moles/Vol] 10 mmol/L Normal 9-18 [facility] Comment on above: Order Comment: Speci men Type: BLOOD SPECIMENOrdering Facility: [facility] Address: [address] [place] [address] Performed By: #### 2 777-1, 91683-2, ####[facility]ORYCLIA [id number] [place] [address] [place] Calcium [Mass/Vol] 7.6 mg/dL Low 8.5-10.2 [facility] Comment on above: Order Comment: Speci men Type: BLOOD SPECIMENOrdering Facility: [facility] Address: [address] [place] [address] Performed By: #### 2 777-1, , ####[facility]ORYCLIA [id number] [place] [address] [place] Chloride [Moles/Vol] 96 mmol/L Low 97-105 [facility] Comment on above: Order Comment: Speci men Type: BLOOD SPECIMENOrdering Facility: [facility] Address: [address] [place] [address] Performed By: #### 2 777-1, , ####[facility]ORYCLIA [id number] [place] [address] [place] CO2 [Moles/Vol] 27 mmol/L Normal 22-30 [facility] Comment on above: Order Comment: Speci men Type: BLOOD SPECIMENOrdering Facility: [facility] Address: [address] [place] [address] Performed By: #### 2 777-1, , ####[facility]ORYCLIA [id number] [place] [address] [place] Creatinine [Mass/Vol] 0.49 mg/dL Low 0.58-0.96 [facility] Comment on above: Order Comment: Speci men Type: BLOOD SPECIMENOrdering Facility: [facility] Address: [address] [address] Performed By: #### 2 777-1, 74261-4, ####[facility] [id number] [address] OF [facility] ESTIMATED GLOMERULAR FILTRATION RATE 99 mL/min/1.73m??? Normal >=60 [facility] Comment on above: Order Comment: Sharath lozano Type: BLOOD SPECIMENOrdering Facility: [facility] Address: [address] [address] Result Comment: Lulu mated Glomerular Filtration Rate [...] actual GFR. Performed By: #### 2 777-1, 24232-7, ####[facility]ATORYIA [id number] [place] [address] [place] Glucose [Mass/Vol] 106 mg/dL High 74-99 [facility] Comment on above: Order Comment: Sharath lozano Type: BLOOD SPECIMENOrdering Facility: [facility] Address: [address] [address] Result Comment: The [place] [employer] (ADA) provides guidance for cutoff [...] Standards of Medical Care in Diabetes 2016, [place] [employer]. Diabetes Care. 2016.39(Suppl 1). Performed By: #### 2 777-1, 58280-8, ####[facility]ORYCLIA [id number] [place] [address] [place] Potassium [Moles/Vol] 3.5 mmol/L Low 3.7-5.1 [facility] Comment on above: Order Comment: Speci men Type: BLOOD SPECIMENOrdering Facility: [facility] Address: [address] [place] [address] Performed By: #### 2 777-1, 98183-4, ####[facility]ORYCLIA [id number] [address] STATES OF [facility] Sodium [Moles/Vol] 133 mmol/L Low 136-144 [facility] Comment on above: Order Comment: Speci men Type: BLOOD SPECIMENOrdering Facility: [facility] Address: [address] [place] [address] Performed By: #### 2 777-1, 39942-0, ####[facility] [id number] [address] STATES [facility] Urea nitrogen [Mass/Vol] 6 mg/dL Low 7-21 [facility] Comment on above: Order Comment: Speci men Type: BLOOD SPECIMENOrdering Facility: [facility] Address: [address] [place] [address] Performed By: #### 2 777-1, 05373-3, ####[facility]ORYCLIA [id number] [address] STATES [facility] CBC panel Auto (Bld)on 10-09 Erythrocyte distribution width (RBC) [Ratio] 13.2 % Normal 11.5-15.0 [facility] Comment on above: Order Comment: Speci men Type: BLOOD SPECIMENOrdering Facility: [facility] Address: [address] [place] [address] Performed By: #### 5 8410-2 ####[facility]ORYCLIA [id number] [address] Hematocrit (Bld) [Volume fraction] 31.9 % Low 36.0-46.0 [facility] Comment on above: Order Comment: Speci men Type: BLOOD SPECIMENOrdering Facility: [facility] Address: [address] [place] [address] Performed By: #### 5 8410-2 ####[facility]ORYCLIA [id number] [address] OF [facility] Hemoglobin (Bld) [Mass/Vol] 11.0 g/dL Low 11.5-15.5 [facility] Comment on above: Order Comment: Speci men Type: BLOOD SPECIMENOrdering Facility: [facility] Address: [address] [place] [address] Performed By: #### 5 8410-2 ####[facility]ORYCLIA [id number] [address] [place] MCH (RBC) [Entitic mass] 32.7 pg Normal 26.0-34.0 [facility] Comment on above: Order Comment: Speci men Type: BLOOD SPECIMENOrdering Facility: [facility] Address: [address] [place] [address] Performed By: #### 5 8410-2 ####[facility]ORYCLIA [id number] [address] [place] MCHC (RBC) [Mass/Vol] 34.5 g/dL Normal 30.5-36.0 [facility] Comment on above: Order Comment: Speci men Type: BLOOD SPECIMENOrdering Facility: [facility] Address: [address] [place] [address] Performed By: #### 5 8410-2 ####[facility]ORYCLIA [id number] [address] MCV (RBC) [Entitic vol] 94.9 fL Normal 80.0-100.0 [facility] Comment on above: Order Comment: Speci men Type: BLOOD SPECIMENOrdering Facility: [facility] Address: [address] [place] [address] Performed By: #### 5 8410-2 ####[facility]ORYCLIA [id number] [address] [place] Nucleated RBC (Bld) [#/Vol] 10*3/uL Normal <0.01 [facility] Comment on above: Order Comment: Speci men Type: BLOOD SPECIMENOrdering Facility: [facility] Address: [address] [place] [address] Performed By: #### 5 8410-2 ####[facility]ORYCLIA [id number] [address] [place] Platelet mean volume (Bld) [Entitic vol] 9.7 fL Normal 9.0-12.7 [facility] Comment on above: Order Comment: Speci men Type: BLOOD SPECIMENOrdering Facility: [facility] Address: [address] [place] [address] Performed By: #### 5 8410-2 ####[facility]ORYCLIA [id number] [address] [place] Platelets (Bld) [#/Vol] 301 10*3/uL Normal 150-400 [facility] Comment on above: Order Comment: Speci men Type: BLOOD SPECIMENOrdering Facility: [facility] Address: [address] [place] [address] Performed By: #### 5 8410-2 ####[facility]ORYCLIA [id number] [address] [place] RBC (Bld) [#/Vol] 3.36 10*6/uL Low 3.90-5.20 [facility] Comment on above: Order Comment: Speci men Type: BLOOD SPECIMENOrdering Facility: [facility] Address: [address] [place] [address] Performed By: #### 5 8410-2 ####[facility] LAB[facility]ATORYCLIA [id number] [address] [place] WBC (Bld) [#/Vol] 22.01 10*3/uL High 3.70-11.00 [facility] Comment on above: Order Comment: Speci men Type: BLOOD SPECIMENOrdering Facility: [facility] Address: [address] [place] [address] Performed By: #### 5 8410-2 ####[facility]ATORYCLIA [id number] [address] Erythrocyte distribution width (RBC) [Ratio] 13.4 % Normal 11.5-15.0 [facility] Comment on above: Order Comment: Speci men Type: BLOOD SPECIMENOrdering Facility: [facility] [facility] Address: [address] [place] [address] Performed By: #### 5 8410-2 ####[facility]ATORYCLIA [id number] [address] OF [facility] Hematocrit (Bld) [Volume fraction] 28.6 % Low 36.0-46.0 [facility] Comment on above: Order Comment: Speci men Type: BLOOD SPECIMENOrdering Facility: [facility] Address: [address] [place] [address] Performed By: #### 5 8410-2 ####[facility]ATORYCLIA [id number] [address] Hemoglobin (Bld) [Mass/Vol] 9.8 g/dL Low 11.5-15.5 [facility] Comment on above: Order Comment: Speci men Type: BLOOD SPECIMENOrdering Facility: [facility] Address: [address] [place] [address] Performed By: #### 5 8410-2 ####[facility]ATORYCLIA [id number] [address] MCH (RBC) [Entitic mass] 32.8 pg Normal 26.0-34.0 [facility] Comment on above: Order Comment: Speci men Type: BLOOD SPECIMENOrdering Facility: [facility] Address: [address] [place] [address] Performed By: #### 5 8410-2 ####[facility]ORATORYCLIA [id number] [address] STATES OF [facility] MCHC (RBC) [Mass/Vol] 34.3 g/dL Normal 30.5-36.0 [facility] Comment on above: Order Comment: Speci men Type: BLOOD SPECIMENOrdering Facility: [facility] Address: [address] [place] [address] Performed By: #### 5 8410-2 ####[facility]ORATORYCLIA [id number] [address] OF [facility] MCV (RBC) [Entitic vol] 95.7 fL Normal 80.0-100.0 [facility] Comment on above: Order Comment: Speci men Type: BLOOD SPECIMENOrdering Facility: [facility] Address: [address] [place] [address] Performed By: #### 5 8410-2 ####[facility]ATORYCLIA [id number] [address] Nucleated RBC (Bld) [#/Vol] 10*3/uL Normal <0.01 [facility] Comment on above: Order Comment: Speci men Type: BLOOD SPECIMENOrdering Facility: [facility] Address: [address] [place] [address] Performed By: #### 5 8410-2 ####[facility]ATORYCLIA [id number] [address] [place] Platelet mean volume (Bld) [Entitic vol] 9.9 fL Normal 9.0-12.7 [facility] Comment on above: Order Comment: Speci men Type: BLOOD SPECIMENOrdering Facility: [facility] Address: [address] [place] [address] Performed By: #### 5 8410-2 ####[facility]ATORYCLIA [id number] [address] [place] Platelets (Bld) [#/Vol] 273 10*3/uL Normal 150-400 [facility] Comment on above: Order Comment: Speci men Type: BLOOD SPECIMENOrdering Facility: [facility] Address: [address] [place] [address] Performed By: #### 5 8410-2 ####[facility]ATORYCLIA [id number] [address] OF [facility] RBC (Bld) [#/Vol] 2.99 10*6/uL Low 3.90-5.20 [facility] Comment on above: Order Comment: Speci men Type: BLOOD SPECIMENOrdering Facility: [facility] Address: [address] [place] [address] Performed By: #### 5 8410-2 ####[facility]ATORYCLIA [id number] [address] WBC (Bld) [#/Vol] 10.93 10*3/uL Normal 3.70-11.00 [facility] Comment on above: Order Comment: Speci men Type: BLOOD SPECIMENOrdering Facility: [facility] Address: [address] [place] [address] Performed By: #### 5 8410-2 ####[facility]ATORYCLIA [id number] [address] Calcium.ionized [Moles/Vol]o n 10-09-2021 Calcium.ionized (BldV) [Mass/Vol] 1.02 mmol/L Low 1.08-1.30 [facility] Comment on above: Order Comment: Speci men Type: BLOOD SPECIMENOrdering Facility: [facility] Address: [address] [place] [address] Performed By: #### 1 995-0 ####[facility]ATORYCLIA [id number] [address] Calcium.ionized adjusted to pH 7.4 (Bld) [Moles/Vol] 1.00 mmol/L Low 1.08-1.30 [facility] Comment on above: Order Comment: Speci men Type: BLOOD SPECIMENOrdering Facility: [facility] Address: [address] [place] [address] Performed By: #### 1 995-0 ####[facility]ATORYCLIA [id number] [address] Magnesium SerPl-mCncon 10-09 Magnesium [Mass/Vol] 1.3 mg/dL Low 1.7-2.3 [facility] Comment on above: Order Comment: Speci men Type: BLOOD SPECIMENOrdering Facility: [facility] Address: [address] [place] [address] Performed By: #### 1 9123-9, 2777-1, 86856-0 ####[facility]ATORYCLIA [id number] [address] Magnesium [Mass/Vol] 1.5 mg/dL Low 1.7-2.3 [facility] Comment on above: Order Comment: Speci men Type: BLOOD SPECIMENOrdering Facility: [facility] Address: [address] [place] [address] Performed By: #### 2 777-1, 95288-5, 75585-3 ####[facility]ATORYCLIA [id number] [address] NURSING PROGon 10-09-2021 NURSING PROG Normal [facility] OPERATIVE NOon 10-09-2021 OPERATIVE NO Normal [facility] Phosphate SerPl-mCncon 10-09 Phosphate [Mass/Vol] 4.3 mg/dL Normal 2.7-4.8 [facility] Comment on above: Order Comment: Speci men Type: BLOOD SPECIMENOrdering Facility: [facility] Address: [address] [place] [address] Performed By: #### 1 9123-9, 2777-1, 76907-1 ####[facility]ORYCLIA [id number] [address] Phosphate [Mass/Vol] 3.8 mg/dL Normal 2.7-4.8 [facility] Comment on above: Order Comment: Speci men Type: BLOOD SPECIMENOrdering Facility: [facility] Address: [address] [place] [address] Performed By: #### 2 777-1, 55296-4, 49669-2 ####[facility]ATORYCLIA [id number] [address] [place] THERAPY NTon 10-09-2021 THERAPY NT Normal [facility] TYPE + SCREENon 10-09-2021 ABO A Normal [facility] Comment on above: Order Comment: Speci men Type: BLOOD SPECIMENOrdering Facility: [facility] Address: [address] [place] [address] Performed By: #### T SCR ####[facility] BANKCLIA [id number] [address] HISTORICAL AB SCR STATUS Negative [facility] Comment on above: Order Comment: Speci men Type: BLOOD SPECIMENOrdering Facility: [facility] Address: [address] [place] [address] Performed By: #### T SCR ####[facility] BANKCLIA [id number] [address] Rh Nom (Bld) Positive [facility] Comment on above: Order Comment: Speci men Type: BLOOD SPECIMENOrdering Facility: [facility] Address: [address] [place] [address] Performed By: #### T SCR ####[facility] BANKCLIA [id number] [address] [place] TYPE AND SCREEN EXPIRATION 10/12/2021 23:59 Normal [facility] Comment on above: Order Comment: Speci men Type: BLOOD SPECIMENOrdering Facility: [facility] Address: [address] [place] [address] Performed By: #### T SCR ####[facility] BANKCLIA [id number] [place] [address] [place] XR CHEST 1V FRONTALon 2021 XR CHEST 1V FRONTAL Normal [facility] XR CHEST 1V FRONTAL Normal [facility] 25(OH)D3 SerPl-mCncon 2021 25-hydroxyvitamin D3 [Mass/Vol] 44.4 ng/mL Normal 30.0-100.0 [facility] Comment on above: Order Comment: Speci men Type: BLOOD SPECIMENOrdering Facility: [facility] Address: [address] [place], [place] [address] Result Comment: Clas sification of 25 [place] Vitamin D status:Deficiency: <= 20.0 ng/ml.Insufficientcy: 21.0-29.0 ng/ml.Sufficiency: >= 30.0 ng/ml. Performed By: #### 1 989-3 ####[facility]ATORYCLIA [id number] [place] [address] [place] ALLIED HEALTHon 10-08-2021 ALLIED HEALTH Normal [facility] Basic metabolic 2000 panelon 10-08-2021 Anion gap [Moles/Vol] 9 mmol/L Normal 9-18 [facility] Comment on above: Order Comment: Speci men Type: BLOOD SPECIMENOrdering Facility: [facility] Address: [address] [place], [place] [address] Performed By: #### 2 4321-2, , 2776-04 ####[facility]ATORYCLIA [id number] [place] [address] [place] Calcium [Mass/Vol] 7.1 mg/dL Low 8.5-10.2 [facility] Comment on above: Order Comment: Speci men Type: BLOOD SPECIMENOrdering Facility: [facility] Address: [address] [place] [id number] Performed By: #### 2 4321-2, , 2776-04 ####[facility]ATORYCLIA [id number] [place] [address] [place] Chloride [Moles/Vol] 100 mmol/L Normal 97-105 [facility] Comment on above: Order Comment: Speci men Type: BLOOD SPECIMENOrdering Facility: [facility] Address: [address] [place] [address] Performed By: #### 2 4321-2, , 2776-04 ####[facility] [id number] [address] CO2 [Moles/Vol] 24 mmol/L Normal 22-30 [facility] Comment on above: Order Comment: Speci men Type: BLOOD SPECIMENOrdering Facility: [facility] Address: [address] [place] [address] Performed By: #### 2 4321-2, , 2776-04 ####[facility]PITALIA [id number] [address] Creatinine [Mass/Vol] 0.55 mg/dL Low 0.58-0.96 [facility] Comment on above: Order Comment: Speci men Type: BLOOD SPECIMENOrdering Facility: [facility] Address: [address] [place] [address] Performed By: #### 2 4321-2, , 2776-04 ####[facility] HOSPITALIA [id number] [address] ESTIMATED GLOMERULAR FILTRATION RATE 96 mL/min/1.73m??? Normal >=60 [facility] Comment on above: Order Comment: Speci men Type: BLOOD SPECIMENOrdering Facility: [facility] Address: [address] [place] [address] Result Comment: Lulu mated Glomerular Filtration Rate [...] Performed By: #### 2 4321-2, , 2776-04 ####[facility]ATORYCLIA [id number] [place] [address] [place] Glucose [Mass/Vol] 108 mg/dL High 74-99 [facility] Comment on above: Order Comment: Speci men Type: BLOOD SPECIMENOrdering Facility: [facility] Address: [address] [place] [address] Result Comment: The [employer] (ADA) provides guidance for cutoff [...] Standards of Medical Care in Diabetes 2016, [employer]. Diabetes Care. 2016.39(Suppl 1). Performed By: #### 2 4321-2, , 2776-04 ####[facility]ATORYCLIA [id number] [place] [address] [place] Potassium [Moles/Vol] 3.5 mmol/L Low 3.7-5.1 [facility] Comment on above: Order Comment: Sharath lozano Type: BLOOD SPECIMENOrdering Facility: [facility] Address: [address] [place], [place] [address] Performed By: #### 2 4321-2, , 2776-04 ####[facility]ATORYCLIA [id number] [place] [address] [place] Sodium [Moles/Vol] 133 mmol/L Low 136-144 [facility] Comment on above: Order Comment: Sharath lozano Type: BLOOD SPECIMENOrdering Facility: [facility] Address: [address] [place], [place] [phone] Performed By: #### 2 4321-2, , 2776-04 ####[facility]ATORYCLIA [id number] [place] [address] [place] Urea nitrogen [Mass/Vol] 6 mg/dL Low 7-21 [facility] Comment on above: Order Comment: Speci men Type: BLOOD SPECIMENOrdering Facility: [facility] Address: [address] [place] [address] Performed By: #### 2 4321-2, 94719-6, 2777-1 ####[facility]ATORYCLIA [id number] [address] STATES OF [facility] CBC panel Auto (Bld)on 10-08 Erythrocyte distribution width (RBC) [Ratio] 13.3 % Normal 11.5-15.0 [facility] Comment on above: Order Comment: Speci men Type: BLOOD SPECIMENOrdering Facility: [facility] Address: [address] [place] [address] Performed By: #### 5 8410-2 ####[facility]ORATORYCLIA [id number] [address] STATES OF [facility] Hematocrit (Bld) [Volume fraction] 28.3 % Low 36.0-46.0 [facility] Comment on above: Order Comment: Speci men Type: BLOOD SPECIMENOrdering Facility: [facility] Address: [address] [place] [address] Performed By: #### 5 8410-2 ####[facility]ATORYCLIA [id number] [address] [place] [facility] Hemoglobin (Bld) [Mass/Vol] 9.4 g/dL Low 11.5-15.5 [facility] Comment on above: Order Comment: Speci men Type: BLOOD SPECIMENOrdering Facility: [facility] Address: [address] [place] [address] Performed By: #### 5 8410-2 ####[facility]ATORYCLIA [id number] [address] MCH (RBC) [Entitic mass] 32.8 pg Normal 26.0-34.0 [facility] Comment on above: Order Comment: Speci men Type: BLOOD SPECIMENOrdering Facility: [facility] Address: [address] [place] [address] Performed By: #### 5 8410-2 ####[facility]ATORYCLIA [id number] [address] MCHC (RBC) [Mass/Vol] 33.2 g/dL Normal 30.5-36.0 [facility] Comment on above: Order Comment: Speci men Type: BLOOD SPECIMENOrdering Facility: [facility] Address: [address] [place] [address] Performed By: #### 5 8410-2 ####[facility]ATORYCLIA [id number] [address] MCV (RBC) [Entitic vol] 98.6 fL Normal 80.0-100.0 [facility] Comment on above: Order Comment: Speci men Type: BLOOD SPECIMENOrdering Facility: [facility] Address: [address] [place] [address] Performed By: #### 5 8410-2 ####[facility]ATORYCLIA [id number] [address] Nucleated RBC (Bld) [#/Vol] 10*3/uL Normal <0.01 [facility] Comment on above: Order Comment: Speci men Type: BLOOD SPECIMENOrdering Facility: [facility] Address: [address] [place] [address] Performed By: #### 5 8410-2 ####[facility]ORYCLIA [id number] [address] Platelet mean volume (Bld) [Entitic vol] 10.1 fL Normal 9.0-12.7 [facility] Comment on above: Order Comment: Speci men Type: BLOOD SPECIMENOrdering Facility: [facility] Address: [address] [place] [address] Performed By: #### 5 8410-2 ####[facility]ATORYCLIA [id number] [address] Platelets (Bld) [#/Vol] 262 10*3/uL Normal 150-400 [facility] Comment on above: Order Comment: Speci men Type: BLOOD SPECIMENOrdering Facility: [facility] Address: [address] [place] [address] Performed By: #### 5 8410-2 ####[facility]ATORYCLIA [id number] [address] [place] RBC (Bld) [#/Vol] 2.87 10*6/uL Low 3.90-5.20 [facility] Comment on above: Order Comment: Speci men Type: BLOOD SPECIMENOrdering Facility: [facility] Address: [address] [place] [address] Performed By: #### 5 8410-2 ####[facility]ATORYCLIA [id number] [address] WBC (Bld) [#/Vol] 7.41 10*3/uL Normal 3.70-11.00 [facility] Comment on above: Order Comment: Speci men Type: BLOOD SPECIMENOrdering Facility: [facility] Address: [address] [place] [address] Performed By: #### 5 8410-2 ####[facility]ORYCLIA [id number] [address] Calcium.ionized [Moles/Vol]o n 10-08-2021 Calcium.ionized (BldV) [Mass/Vol] 0.99 mmol/L Low 1.08-1.30 [facility] Comment on above: Order Comment: Speci men Type: BLOOD SPECIMENOrdering Facility: [facility] Address: [address] [place] [address] Performed By: #### 1 995-0 ####[facility]ORYCLIA [id number] [address] Calcium.ionized adjusted to pH 7.4 (Bld) [Moles/Vol] 0.96 mmol/L Low 1.08-1.30 [facility] Comment on above: Order Comment: Speci men Type: BLOOD SPECIMENOrdering Facility: [facility] Address: [address] [place] [address] Performed By: #### 1 995-0 ####[facility]ORATORYCLIA [id number] [address] OF [facility] Magnesium [facility] Magnesium [Mass/Vol] 1.8 mg/dL Normal 1.7-2.3 [facility] Comment on above: Order Comment: Speci men Type: BLOOD SPECIMENOrdering Facility: [facility] Address: [address] [place] [address] Performed By: #### 2 4321-2, , 2777-1 ####[facility] LABORATORYCLIA [id number] [address] OF [facility] Phosphate SerPl-ncon 10-08 Phosphate [Mass/Vol] 3.4 mg/dL Normal 2.7-4.8 [facility] Comment on above: Order Comment: Speci men Type: BLOOD SPECIMENOrdering Facility: [facility] Address: [address] [place] [address] Performed By: #### 2 4321-2, , 27710-20 ####[facility]ATORYCLIA [id number] [address] [place] THERAPY NTon 10-08-2021 THERAPY NT Normal [facility] XR CHEST 1V FRONTALon 2021 XR CHEST 1V FRONTAL Normal [facility] 25(OH)D3 [facility] 2021 25-hydroxyvitamin D3 [Mass/Vol] 50.5 ng/mL Normal 30.0-100.0 [facility] Comment on above: Order Comment: Speci men Type: BLOOD SPECIMENOrdering Facility: [facility] Address: [address] [place] [address] Result Comment: Clas sification of 25 [place] Vitamin D status:Deficiency: <= 20.0 ng/ml.Insufficientcy: 21.0-29.0 ng/ml.Sufficiency: >= 30.0 ng/ml. Performed By: #### 1 989-3 ####[facility] LABORATORYCLIA [id number] [place] [address] [place] ALLIED HEALTHon 10-07-2021 ALLIED HEALTH Normal [facility] ALLIED HEALTH Normal [facility] ALLIED HEALTH Normal [facility] ALLIED HEALTH Normal [facility] HEALTH Normal [facility] Basic metabolic 2000 panelon 10-07-2021 Anion gap [Moles/Vol] 8 mmol/L Low 9-18 [facility] Comment on above: Order Comment: Speci men Type: BLOOD SPECIMENOrdering Facility: [facility] Address: [address] [place] [address] Performed By: #### 2 4321-2, 2776-04, ####[facility]ATORYCLIA [id number] [place] [address] [place] Calcium [Mass/Vol] 7.1 mg/dL Low 8.5-10.2 [facility] Comment on above: Order Comment: Speci men Type: BLOOD SPECIMENOrdering Facility: [facility] Address: [address] [place] [address] Performed By: #### 2 4321-2, 2776-04, ####[facility]ORYCLIA [id number] [place] [address] [place] Chloride [Moles/Vol] 99 mmol/L Normal 97-105 [facility] Comment on above: Order Comment: Speci men Type: BLOOD SPECIMENOrdering Facility: [facility] Address: [address] [place] [address] Performed By: #### 2 4321-2, 2776-04, ####[facility]ATORYCLIA [id number] [place] [id number] [place] CO2 [Moles/Vol] 24 mmol/L Normal 22-30 [facility] Comment on above: Order Comment: Speci men Type: BLOOD SPECIMENOrdering Facility: [facility] Address: [address] [place] [address] Performed By: #### 2 4321-2, 2776-04, ####[facility] [id number] [place] [id number] [place] Creatinine [Mass/Vol] 0.51 mg/dL Low 0.58-0.96 [facility] Comment on above: Order Comment: Speci men Type: BLOOD SPECIMENOrdering Facility: [facility] Address: [address] [place] [address] Performed By: #### 2 4321-2, 2776-04, ####[facility]PITALIA [id number] [address] [place] ESTIMATED GLOMERULAR FILTRATION RATE 98 mL/min/1.73m??? Normal >=60 [facility] Comment on above: Order Comment: Speci men Type: BLOOD SPECIMENOrdering Facility: [facility] Address: [address] [place] [address] Result Comment: Lulu mated Glomerular Filtration Rate [...] GFR. Performed By: #### 2 4321-2, 2776-04, ####[facility] HOSPITALIA [id number] [place] [address] [place] Glucose [Mass/Vol] 112 mg/dL High 74-99 [facility] Comment on above: Order Comment: Speci men Type: BLOOD SPECIMENOrdering Facility: [facility] Address: [address] [place], [place] [address] Result Comment: The [place] [employer] (ADA) provides guidance for cutoff [...] Standards of Medical Care in Diabetes 2016, [place] [employer]. Diabetes Care. 2016.39(Suppl 1). Performed By: #### 2 4321-2, 2776-04, ####[facility]ORYCLIA [id number] [place] [address] [place] Potassium [Moles/Vol] 3.6 mmol/L Low 3.7-5.1 [facility] Comment on above: Order Comment: Sharath lozano Type: BLOOD SPECIMENOrdering Facility: [facility] Address: [address] [place] [address] Performed By: #### 2 4321-2, 2776-04, ####[facility] [id number] [place] [address] [place] Sodium [Moles/Vol] 131 mmol/L Low 136-144 [facility] Comment on above: Order Comment: Sharath lozano Type: BLOOD SPECIMENOrdering Facility: [facility] Address: [address] [place] [address] Performed By: #### 2 4321-2, 2776-04, ####[facility]ORYCLIA [id number] [place] [address] [place] Urea nitrogen [Mass/Vol] 10 mg/dL Normal 7-21 [facility] Comment on above: Order Comment: Sharath lozano Type: BLOOD SPECIMENOrdering Facility: [facility] Address: [address] [address] Performed By: #### 2 4321-2, 2776-04, ####[facility]ORYCL[facility] [id number] [place] [address] [place] Basophil percentageon 2021 Basophil percentage 10-25 SEEN /hpf 0-5 [facility] Work Phone: Bilirubin Test strip Ql (U)o n 10-07-2021 Bilirubin Ql (U) Negative Negative [facility] Work Phone: CBC panel Auto (Bld)on 10-07 Erythrocyte distribution width (RBC) [Ratio] 13.3 % Normal 11.5-15.0 [facility] Comment on above: Order Comment: Speci men Type: BLOOD SPECIMENOrdering Facility: [facility] Address: [address] [place] [address] Performed By: #### 5 8410-2 ####[facility] LABORATORYCLIA [id number] [address] [place] Hematocrit (Bld) [Volume fraction] 28.4 % Low 36.0-46.0 [facility] Comment on above: Order Comment: Speci men Type: BLOOD SPECIMENOrdering Facility: [facility] Address: [address] [place] [address] Performed By: #### 5 8410-2 ####[facility] LABORATORYCLIA [id number] [address] [place] Hemoglobin (Bld) [Mass/Vol] 9.6 g/dL Low 11.5-15.5 [facility] Comment on above: Order Comment: Speci men Type: BLOOD SPECIMENOrdering Facility: [facility] Address: [address] [place] [address] Performed By: #### 5 8410-2 ####[facility] LABORATORYCLIA [id number] [address] [place] MCH (RBC) [Entitic mass] 32.1 pg Normal 26.0-34.0 [facility] Comment on above: Order Comment: Speci men Type: BLOOD SPECIMENOrdering Facility: [facility] Address: [address] [place] [address] Performed By: #### 5 8410-2 ####[facility] LABORATORYCLIA [id number] [address] STATES [facility] MCHC (RBC) [Mass/Vol] 33.8 g/dL Normal 30.5-36.0 [facility] Comment on above: Order Comment: Speci men Type: BLOOD SPECIMENOrdering Facility: [facility] Address: [address] [place] [address] Performed By: #### 5 8410-2 ####[facility]ATORYCLIA [id number] [address] MCV (RBC) [Entitic vol] 95.0 fL Normal 80.0-100.0 [facility] Comment on above: Order Comment: Speci men Type: BLOOD SPECIMENOrdering Facility: [facility] Address: [address] [place] [address] Performed By: #### 5 8410-2 ####[facility]ATORYCLIA [id number] [address] Nucleated RBC (Bld) [#/Vol] 10*3/uL Normal <0.01 [facility] Comment on above: Order Comment: Speci men Type: BLOOD SPECIMENOrdering Facility: [facility] Address: [address] [place] [address] Performed By: #### 5 8410-2 ####[facility]ATORYCLIA [id number] [address] [place] Platelet mean volume (Bld) [Entitic vol] 9.7 fL Normal 9.0-12.7 [facility] Comment on above: Order Comment: Speci men Type: BLOOD SPECIMENOrdering Facility: [facility] Address: [address] [place] [address] Performed By: #### 5 8410-2 ####[facility]ATORYCLIA [id number] [address] [place] Platelets (Bld) [#/Vol] 266 10*3/uL Normal 150-400 [facility] Comment on above: Order Comment: Speci men Type: BLOOD SPECIMENOrdering Facility: [facility] Address: [address] [place] [address] Performed By: #### 5 8410-2 ####[facility]ATORYCLIA [id number] [address] RBC (Bld) [#/Vol] 2.99 10*6/uL Low 3.90-5.20 [facility] Comment on above: Order Comment: Speci men Type: BLOOD SPECIMENOrdering Facility: [facility] Address: [address] [place] [address] Performed By: #### 5 8410-2 ####[facility]ATORYCLIA [id number] [address] WBC (Bld) [#/Vol] 8.53 10*3/uL Normal 3.70-11.00 [facility] Comment on above: Order Comment: Speci men Type: BLOOD SPECIMENOrdering Facility: [facility] Address: [address] [place] [address] Performed By: #### 5 8410-2 ####[facility]ATORYCLIA [id number] [address] Erythrocyte distribution width (RBC) [Ratio] 13.2 % Normal 11.5-15.0 [facility] Comment on above: Order Comment: Speci men Type: BLOOD SPECIMENOrdering Facility: [facility] Address: [address] [place] [address] Performed By: #### 5 8410-2 ####[facility]ATORYCLIA [id number] [address] Hematocrit (Bld) [Volume fraction] 29.7 % Low 36.0-46.0 [facility] Comment on above: Order Comment: Speci men Type: BLOOD SPECIMENOrdering Facility: [facility] Address: [address] [place] [address] Performed By: #### 5 8410-2 ####[facility]ATORYCLIA [id number] [address] OF [facility] Hemoglobin (Bld) [Mass/Vol] 10.2 g/dL Low 11.5-15.5 [facility] Comment on above: Order Comment: Speci men Type: BLOOD SPECIMENOrdering Facility: [facility] Address: [address] [place] [address] Performed By: #### 5 8410-2 ####[facility]ATORYCLIA [id number] [address] MCH (RBC) [Entitic mass] 32.4 pg Normal 26.0-34.0 [facility] Comment on above: Order Comment: Speci men Type: BLOOD SPECIMENOrdering Facility: [facility] Address: [address] [place] [address] Performed By: #### 5 8410-2 ####[facility]ATORYCLIA [id number] [address] MCHC (RBC) [Mass/Vol] 34.3 g/dL Normal 30.5-36.0 [facility] Comment on above: Order Comment: Speci men Type: BLOOD SPECIMENOrdering Facility: [facility] Address: [address] [place] [address] Performed By: #### 5 8410-2 ####[facility]ATORYCLIA [id number] [address] MCV (RBC) [Entitic vol] 94.3 fL Normal 80.0-100.0 [facility] Comment on above: Order Comment: Speci men Type: BLOOD SPECIMENOrdering Facility: [facility] Address: [address] [place] [address] Performed By: #### 5 8410-2 ####[facility]ATORYCLIA [id number] [address] Nucleated RBC (Bld) [#/Vol] 10*3/uL Normal <0.01 [facility] Comment on above: Order Comment: Speci men Type: BLOOD SPECIMENOrdering Facility: [facility] Address: [address] [place] [address] Performed By: #### 5 8410-2 ####[facility]ATORYCLIA [id number] [address] Platelet mean volume (Bld) [Entitic vol] 9.9 fL Normal 9.0-12.7 [facility] Comment on above: Order Comment: Speci men Type: BLOOD SPECIMENOrdering Facility: [facility] Address: [address] [place] [address] Performed By: #### 5 8410-2 ####[facility]ATORYCLIA [id number] [address] [place] Platelets (Bld) [#/Vol] 308 10*3/uL Normal 150-400 [facility] Comment on above: Order Comment: Speci men Type: BLOOD SPECIMENOrdering Facility: [facility] Address: [address] [place] [address] Performed By: #### 5 8410-2 ####[facility]ATORYCLIA [id number] [address] [place] RBC (Bld) [#/Vol] 3.15 10*6/uL Low 3.90-5.20 [facility] Comment on above: Order Comment: Speci men Type: BLOOD SPECIMENOrdering Facility: [facility] Address: [address] [place] [address] Performed By: #### 5 8410-2 ####[facility]ATORYCLIA [id number] [address] [place] WBC (Bld) [#/Vol] 18.90 10*3/uL High 3.70-11.00 [facility] Comment on above: Order Comment: Speci men Type: BLOOD SPECIMENOrdering Facility: [facility] Address: [address] [place] [address] Performed By: #### 5 8410-2 ####[facility]ORATORYCLIA [id number] [address] [place] BLOOD TYPEon 022 ABO A Normal [facility] Comment on above: Order Comment: Speci men Type: BLOOD SPECIMENOrdering Facility: [facility] Address: [address] [place] [address] Performed By: #### C ONABO ####[facility] BANKCLIA [id number] [address] [place] Rh Nom (Bld) Positive Normal [facility] Comment on above: Order Comment: Speci men Type: BLOOD SPECIMENOrdering Facility: [facility] Address: [address] [place] [address] Performed By: #### C ONABO ####[facility] BANKCLIA [id number] [address] [place] CONSULTon 10-07-2021 CONSULT Normal [facility] CONSULT Normal [facility] CT BRAIN WO IVCONon 10-08-19 CT BRAIN WO IVCON Normal [facility] CT BRAIN WO IVCON Normal [facility] CT CERVICAL SPINE WO IVCONon 10-07-2021 CT CERVICAL SPINE WO IVCON Normal [facility] CT CHEST WO IVCONon 10-08-19 CT CHEST WO IVCON Normal [facility] CTA HEAD W IVCONon 2 CTA HEAD W IVCON Normal [facility] CTA NECK W IVCONon 2 CTA NECK W IVCON Normal [facility] Calcium.ionized [Moles/Vol]o n 10-07-2021 Calcium.ionized (BldV) [Mass/Vol] 1.00 mmol/L Low 1.08-1.30 [facility] Comment on above: Order Comment: Speci men Type: BLOOD SPECIMENOrdering Facility: [facility] Address: [address] [place] [address] Performed By: #### 1 995-0 ####[facility]ATORYCLIA [id number] [address] [place] Calcium.ionized adjusted to pH 7.4 (Bld) [Moles/Vol] 0.96 mmol/L Low 1.08-1.30 [facility] Comment on above: Order Comment: Speci men Type: BLOOD SPECIMENOrdering Facility: [facility] Address: [address] [place] [address] Performed By: #### 1 995-0 ####[facility]ATORYCLIA [id number] [address] Comprehensive metabolic 2000 panelon 10-07-2021 Albumin [Mass/Vol] 4.0 g/dL Normal 3.9-4.9 [facility] Comment on above: Order Comment: Speci men Type: BLOOD SPECIMENOrdering Facility: [facility] Address: [address] [place] [address] Performed By: #### 2 4323-8 ####[facility]ATORYCLIA [id number] [address] [place] ALP [Catalytic activity/Vol] 66 U/L Normal 34-123 [facility] Comment on above: Order Comment: Speci men Type: BLOOD SPECIMENOrdering Facility: [facility] Address: [address] [place] [address] Performed By: #### 2 4323-8 ####[facility]ATORYCLIA [id number] [address] ALT With P-5'-P [Catalytic activity/Vol] 21 U/L Normal 7-38 [facility] Comment on above: Order Comment: Speci men Type: BLOOD SPECIMENOrdering Facility: [facility] Address: [address] [place] [address] Performed By: #### 2 4323-8 ####[facility]ATORYCLIA [id number] [address] STATES [facility] Anion gap [Moles/Vol] 10 mmol/L Normal 9-18 [facility] Comment on above: Order Comment: Speci men Type: BLOOD SPECIMENOrdering Facility: [facility] Address: [address] [place] [address] Performed By: #### 2 4323-8 ####[facility]ORYCLIA [id number] [address] STATES OF [facility] AST With P-5'-P [Catalytic activity/Vol] 39 U/L High 13-35 [facility] Comment on above: Order Comment: Speci men Type: BLOOD SPECIMENOrdering Facility: [facility] Address: [address] [place] [address] Performed By: #### 2 4323-8 ####[facility]ATORYCLIA [id number] [address] [place] Bilirubin [Mass/Vol] 0.5 mg/dL Normal 0.2-1.3 [facility] Comment on above: Order Comment: Speci men Type: BLOOD SPECIMENOrdering Facility: [facility] Address: [address] [place] [address] Performed By: #### 2 4323-8 ####[facility]ATORYCLIA [id number] [address] [place] Calcium [Mass/Vol] 8.1 mg/dL Low 8.5-10.2 [facility] Comment on above: Order Comment: Speci men Type: BLOOD SPECIMENOrdering Facility: [facility] Address: [address] [place] [address] Performed By: #### 2 4323-8 ####[facility]ORATORYCLIA [id number] [place] [address] [place] Chloride [Moles/Vol] 93 mmol/L Low 97-105 [facility] Comment on above: Order Comment: Speci men Type: BLOOD SPECIMENOrdering Facility: [facility] Address: [address] [place] [address] Performed By: #### 2 4323-8 ####[facility]ATORYCLIA [id number] [place] [address] [place] CO2 [Moles/Vol] 25 mmol/L Normal 22-30 [facility] Comment on above: Order Comment: Speci men Type: BLOOD SPECIMENOrdering Facility: [facility] Address: [address] [place] [address] Performed By: #### 2 4323-8 ####[facility] [id number] [address] Creatinine [Mass/Vol] 0.60 mg/dL Normal 0.58-0.96 [facility] Comment on above: Order Comment: Speci men Type: BLOOD SPECIMENOrdering Facility: [facility] Address: [address] [place] [address] Performed By: #### 2 4323-8 ####[facility] HOSPITALIA [id number] [address] ESTIMATED GLOMERULAR FILTRATION RATE 94 mL/min/1.73m??? Normal >=60 [facility] Comment on above: Order Comment: Speci men Type: BLOOD SPECIMENOrdering Facility: [facility] Address: [address] [place] [address] Result Comment: Lulu mated Glomerular Filtration Rate [...] actual GFR. Performed By: #### 2 4323-8 ####[facility]ATORYCLIA [id number] [address] Glucose [Mass/Vol] 143 mg/dL High 74-99 [facility] Comment on above: Order Comment: Sharath lozano Type: BLOOD SPECIMENOrdering Facility: [facility] Address: [address] [place] [address] Result Comment: The [employer] (ADA) provides guidance for cutoff [...] Standards of Medical Care in Diabetes 2016, [employer]. Diabetes Care. 2016.39(Suppl 1). Performed By: #### 2 4323-8 ####[facility]ATORYCLIA [id number] [address] STATES OF [facility] Potassium [Moles/Vol] 3.8 mmol/L Normal 3.7-5.1 [facility] Comment on above: Order Comment: Sharath lozano Type: BLOOD SPECIMENOrdering Facility: [facility] Address: [address] [place] [address] Performed By: #### 2 4323-8 ####[facility]ATORYCLIA [id number] [place] [address] [place] Protein [Mass/Vol] 6.0 g/dL Low 6.3-8.0 [facility] Comment on above: Order Comment: Sharath lozano Type: BLOOD SPECIMENOrdering Facility: [facility] Address: [address] [place] [address] Performed By: #### 2 4323-8 ####[facility]ORYCLIA [id number] [address] [place] Sodium [Moles/Vol] 128 mmol/L Low 136-144 [facility] Comment on above: Order Comment: Speci men Type: BLOOD SPECIMENOrdering Facility: [facility] Address: [address] [address] Performed By: #### 2 4323-8 ####[facility]ATORYCLIA [id number] [place] [address] [place] Urea nitrogen [Mass/Vol] 16 mg/dL Normal 7-21 [facility] Comment on above: Order Comment: Cathyi marta Type: BLOOD SPECIMENOrdering Facility: [facility] Address: [address] [place], [place] [id number] Performed By: #### 2 4323-8 ####[facility]ATORYCLIA [id number] [address] ED NOTEon 10-07-2021 ED NOTE HNO ID: [id number] Author: Catherine Covarrubias RN Service: ? Author Type: Registered Nurse Type: ED Notes Filed: 10/07/2021 2:48 AM Note Text: Bed: 19-ED Expected date: Expected time: Means of arrival: Comments: T2-transfer Normal [facility] ED NOTE HNO ID: [id number] Author: Giuliana Rodriguez RN Service: Emergency Medicine Author Type: Registered Nurse Type: ED Notes Filed: 10/07/2021 2:36 AM Note Text: Chest tube + for bloody output Levin +clear yellow urine Normal [facility] ED NOTE Normal [facility] ED PROV NOTEon 10-07-2021 ED PROV NOTE Normal [facility] Ethanol SerPl-mCncon 022 Ethanol [Mass/Vol] mg/dL Normal <11 [facility] Comment on above: Order Comment: Speci men Type: BLOOD SPECIMENOrdering Facility: [facility] Address: [address] [place] [address] Performed By: #### 5 643-2 ####[facility]ATORYCLIA [id number] [address] HISTORY PHYSICALon HISTORY PHYSICAL Normal [facility] INR in Blood by Coagulation assayon 10-07-2021 INR Coag (Bld) [Relative time] 1.2 {INR} [facility] Work Phone: Ketones Test strip Ql (U)on 10-07-2021 Ketones Ql (U) Negative Negative [facility] Work Phone: Laboratory - Coagulationon 0 10-07-2021 aPTT Coag (Bld) [Time] 29.6 s 24.1-36.2 [facility] Work Phone: PT Coag (PPP) [Time] 14.6 s 11.7-14.9 [facility] Work Phone: Magnesium SerPl-mCncon 10-07 Magnesium [Mass/Vol] 2.2 mg/dL Normal 1.7-2.3 [facility] Comment on above: Order Comment: Sharath lozano Type: BLOOD SPECIMENOrdering Facility: [facility] Address: [address] [place], [place] [id number] Performed By: #### 2 4321-2, 2777-1, 59359-7 ####[facility]ATORYCLIA [id number] [place] [address] [place] Magnesium [Mass/Vol] 1.5 mg/dL Low 1.7-2.3 [facility] Comment on above: Order Comment: Sharath lozano Type: BLOOD SPECIMENOrdering Facility: [facility] Address: [address] [place], [place] [phone] Performed By: #### 1 9123-9, 2777-1 ####[facility] LABORATORYCLIA [id number] [place] [address] [place] Mucus LM Ql (Urine sed)on Mucus Ql (Urine sed) 0 SEEN /hpf [facility] Work Phone: Nitrite Test strip Ql (U)on 10-07-2021 Nitrite Ql (U) Negative Negative [facility] Work Phone: PT panel Coag (PPP)on 2021 INR Coag (PPP) [Relative time] 1.0 {INR} Normal 0.9-1.3 [facility] Comment on above: Order Comment: Sharath lozano Type: BLOOD SPECIMENOrdering Facility: [facility] Address: [address] [place] [address] Result Comment: Ana min K Antagonist (VKA) Therapeutic Range: INR 2 to 3 (Target INR of 2.5)Note: For patients treated with VKA drugs, such as warfarin, the [employer] 2012 Guideline recommends [...] al. Chest 2012, 141:7S-47SNishimura RA, et al. [facility] 2017, 70: 252-289 Performed By: #### 1 4979-9, 80266-5 ####[facility]ORATORYCLIA [id number] [place] [address] [place] PT Coag (PPP) [Time] 11.1 s Normal 9.7-13.0 [facility] Comment on above: Order Comment: Sharath lozano Type: BLOOD SPECIMENOrdering Facility: [facility] Address: [address] [place] [address] Performed By: #### 1 4979-9, 68621-4 ####[facility]CLIA [id number] [place] [address] [place] Phosphate SerPl-mCncon 10-07 Phosphate [Mass/Vol] 3.4 mg/dL Normal 2.7-4.8 [facility] Comment on above: Order Comment: Sharath lozano Type: BLOOD SPECIMENOrdering Facility: [facility] Address: [address] [place] [address] Performed By: #### 2 4321-2, 2777-1, 72702-1 ####[facility]ATORYCLIA [id number] [place] [address] [facility] [place] Phosphate [Mass/Vol] 3.4 mg/dL Normal 2.7-4.8 [facility] Comment on above: Order Comment: Sharath lozano Type: BLOOD SPECIMENOrdering Facility: [facility] Address: [address] [address] Performed By: #### 1 9123-9, 2777-1 ####[facility] LABORATORYCLIA [id number] [place] [address] [place] Protein Test strip Ql (U)on 10-07-2021 Protein Ql (U) 15 mg/dl Negative [facility] Work Phone: SARS-CoV-2 RNA Resp Ql LEONA+p robeon 10-07-2021 SARS-CoV-2 (COVID-19) RNA LEONA+probe Ql (Resp) COVID 19 RESULT: SARS-CoV-2 (Agent of COVID-19) Not Detected by RT-PCR or equivalent method. This test has been authorized by FDA under an Emergency Use Authorization (EUA). Normal [facility] Comment on above: Performed By: #### 9 4500-6 ####[facility]ATORYCLIA [id number] [address] [place] STAPH AUREUS PCRon 2 S. aureus and MRSA panel LEONA+probe (Nose) Normal Negative [facility] Comment on above: Order Comment: Speci men Type: SWAB OF INTERNAL NOSEOrdering Facility: [facility] Address: [address] [place] [address] Result Comment: Nega tive for Staphylococcus aureus by PCR.Negative for MRSA by PCR Performed By: #### S APCR ####[facility]ATORYCLIA [id number] [address] [place] Squamous epithelial cells de tection in urine sediment by light microscopyon 10-07-2021 Epithelial cells.squamous LM Ql (Urine sed) 0 SEEN /hpf 5-10 [facility] Work Phone: TOX SCREEN ROUT URon 022 Amphetamines Confirm (U) [Mass/Vol] Negative Normal Negative [facility] Comment on above: Order Comment: Speci men Type: URINE SPECIMENOrdering Facility: [facility] Address: [address] [place] [phone] Result Comment: Cuto ff threshold at 1000 ng/mL. Performed By: #### U TOX2 ####[facility]ORYCLIA [id number] [address] [place] BARBITURATES, URINE Negative Normal Negative [facility] Comment on above: Order Comment: Speci men Type: URINE SPECIMENOrdering Facility: [facility] Address: [address] [place] [address] Result Comment: Cuto ff threshold at 200 ng/mL. Performed By: #### U TOX2 ####[facility]ORYCLIA [id number] [address] [place] BENZODIAZEPINES, UR Negative Normal Negative [facility] Comment on above: Order Comment: Speci men Type: URINE SPECIMENOrdering Facility: [facility] Address: [address] [place] [address] Result Comment: Cuto ff threshold at 200 ng/mL. Performed By: #### U TOX2 ####[facility]ORYCLIA [id number] [address] CANNABINOIDS,URINE Negative Normal Negative [facility] Comment on above: Order Comment: Speci men Type: URINE SPECIMENOrdering Facility: [facility] Address: [address] [place] [address] Result Comment: Cuto ff threshold at 50 ng/mL. Performed By: #### U TOX2 ####[facility]ORATORYCLIA [id number] [address] Cocaine Ql (U) Negative Normal Negative [facility] Comment on above: Order Comment: Speci men Type: URINE SPECIMENOrdering Facility: [facility] Address: [address] [place] [address] Result Comment: Cuto ff threshold at 300 ng/mL. Performed By: #### U TOX2 ####[facility]ORATORYCLIA [id number] [address] Ethanol (U) [Mass/Vol] <11 Normal <11 [facility] Comment on above: Order Comment: Speci men Type: URINE SPECIMENOrdering Facility: [facility] Address: [address] [place] [address] Performed By: #### U TOX2 ####[facility] LABORATORYCLIA [id number] [address] Opiates Screen Ql (U) Positive Abnormal Negative [facility] Comment on above: Order Comment: Speci men Type: URINE SPECIMENOrdering Facility: [facility] Address: [address] [place] [address] Result Comment: Cuto ff threshold at 300 ng/mL. Performed By: #### U TOX2 ####[facility]ATORYCLIA [id number] [address] oxyCODONE cutoff Screen (U) [Mass/Vol] Negative Normal Negative [facility] Comment on above: Order Comment: Speci men Type: URINE SPECIMENOrdering Facility: [facility] Address: [address] [place] [address] Result Comment: Cuto ff threshold at 100 ng/mL. Performed By: #### U TOX2 ####[facility]ORATORYCLIA [id number] [address] Phencyclidine Ql (U) Negative Normal Negative [facility] Comment on above: Order Comment: Speci men Type: URINE SPECIMENOrdering Facility: [facility] Address: [address] [place] [address] Result Comment: Cuto ff threshold at 25 ng/mL. Performed By: #### U TOX2 ####[facility]ORATORYCLIA [id number] [address] TYPE + SCREENon 10-07-2021 ABO A Normal [facility] Comment on above: Order Comment: Speci men Type: BLOOD SPECIMENOrdering Facility: [facility] Address: [address] [place] [address] Performed By: #### T SCR ####[facility] BANKCLIA [id number] [address] HISTORICAL AB SCR STATUS Negative Normal [facility] Comment on above: Order Comment: Speci men Type: BLOOD SPECIMENOrdering Facility: [facility] Address: [address] [place] [address] Performed By: #### T SCR ####[facility] BANKCLIA [id number] [address] Rh Nom (Bld) Positive Normal [facility] Comment on above: Order Comment: Speci men Type: BLOOD SPECIMENOrdering Facility: [facility] Address: [address] [place] [address] Performed By: #### T SCR ####[facility] BANKCLIA [id number] [address] TYPE AND SCREEN EXPIRATION 10/10/2021 23:59 Normal [facility] Comment on above: Order Comment: Speci men Type: BLOOD SPECIMENOrdering Facility: [facility] Address: [address] [place] [address] Performed By: #### T SCR ####[facility]LO[facility] BANKCLIA [id number] [address] Urinalysis complete panel (U )on 10-07-2021 Bilirubin Ql (U) Negative Normal Negative [facility] Comment on above: Order Comment: Speci men Type: URINE SPECIMENOrdering Facility: [facility] Address: [address] [place] [address] Performed By: #### 2 4356-8 ####[facility]ORATORYCLIA [id number] [address] [place] Clarity (Unsp spec) Clear Normal Clear [facility] Comment on above: Order Comment: Speci men Type: URINE SPECIMENOrdering Facility: [facility] Address: [address] [place] [address] Performed By: #### 2 4356-8 ####[facility]ORATORYCLIA [id number] [address] Color (U) Light Yellow Normal yellow [facility] Comment on above: Order Comment: Speci men Type: URINE SPECIMENOrdering Facility: [facility] Address: [address] [address] Performed By: #### 2 4356-8 ####[facility]ATORYCLIA [id number] [address] [place] Glucose Test strip (U) [Mass/Vol] Negative Normal Negative [facility] Comment on above: Order Comment: Speci men Type: URINE SPECIMENOrdering Facility: [facility] Address: [address] [place] [address] Performed By: #### 2 4356-8 ####[facility]ORATORYCLIA [id number] [address] [place] Hemoglobin Ql (U) Negative Normal Negative [facility] Comment on above: Order Comment: Speci men Type: URINE SPECIMENOrdering Facility: [facility] Address: [address] [place] [address] Performed By: #### 2 4356-8 ####[facility]ATORYCLIA [id number] [address] [place] Ketones Ql (U) Negative Normal Negative [facility] Comment on above: Order Comment: Speci men Type: URINE SPECIMENOrdering Facility: [facility] Address: [address] [place] [address] Performed By: #### 2 4356-8 ####[facility]ORYCLIA [id number] [address] Leukocyte esterase Test strip Ql (U) 500 Karson/mL Abnormal Negative [facility] Comment on above: Order Comment: Speci men Type: URINE SPECIMENOrdering Facility: [facility] Address: [address] [place] [address] Performed By: #### 2 4356-8 ####[facility]ORATORYCLIA [id number] [place] [address] [place] Nitrite Ql (U) Negative Normal Negative [facility] Comment on above: Order Comment: Speci men Type: URINE SPECIMENOrdering Facility: [facility] Address: [address] [address] Performed By: #### 2 4356-8 ####[facility]ATORYCLIA [id number] [address] [place] pH (U) 6.5 [pH] Normal 5.0-8.0 [facility] Comment on above: Order Comment: Speci men Type: URINE SPECIMENOrdering Facility: [facility] Address: [address] [place] [address] Performed By: #### 2 4356-8 ####[facility]ORATORYCLIA [id number] [place] [address] [place] Protein (U) [Mass/Vol] Negative Normal Negative [facility] Comment on above: Order Comment: Speci men Type: URINE SPECIMENOrdering Facility: [facility] Address: [address] [place] [address] Performed By: #### 2 4356-8 ####[facility]ATORYCLIA [id number] [address] [place] RBC LM.HPF (Urine sed) [#/Area] 0-3 /HPF Normal 0-3 /HPF [facility] Comment on above: Order Comment: Speci men Type: URINE SPECIMENOrdering Facility: [facility] Address: [address] [place] [address] Performed By: #### 2 4356-8 ####[facility]ATORYCLIA [id number] [address] [place] Specific gravity (U) [Rel density] >1.040 High 1.005-1.030 [facility] Comment on above: Order Comment: Speci men Type: URINE SPECIMENOrdering Facility: [facility] Address: [address] [place] [address] Performed By: #### 2 4356-8 ####[facility]ORYCLIA [id number] [address] [place] Urobilinogen Ql (U) Normal Normal Negative [facility] Comment on above: Order Comment: Speci men Type: URINE SPECIMENOrdering Facility: [facility] Address: [address] [place] [address] Performed By: #### 2 4356-8 ####[facility]ATORYCLIA [id number] [address] WBC LM.HPF (Urine sed) [#/Area] /[HPF] Abnormal 0-5 /HPF [facility] Comment on above: Order Comment: Speci men Type: URINE SPECIMENOrdering Facility: [facility] Address: [address] [place] [address] Performed By: #### 2 4356-8 ####[facility]ATORYCLIA [id number] [address] Urine blood detectionon 09-20 RBC Ql (U) Negative Negative [facility] Work Phone: RBC Ql (U) 0-5 SEEN /hpf 0-5 [facility] Work Phone: Urine clarityon 10-07-2021 Clarity (U) Clear Clear [facility] Work Phone: Urine color determinationon 10-07-2021 Color (U) Yellow Yellow [facility] Work Phone: Urine glucose detectionon Glucose Ql (U) Normal mg/dl Normal [facility] Work Phone: [phone] Urine leukocyte esterase det ection by dipstickon 10-07-2021 Leukocyte esterase Test strip Ql (U) 100 /ul Negative [facility] Work Phone: Urine pHon 10-07-2021 pH (U) 7.0 [pH] 5.0 - 8.0 [facility] Work Phone: Urine sediment bacteria coun t by microscopy (number/high power field)on 10-07-2021 Bacteria LM.HPF (Urine sed) [#/Area] 3 /[HPF] None Seen [facility] Work Phone: Urine specific gravity measu rementon 10-07-2021 Specific gravity (U) [Rel density] 1.010 1.002-1.030 [facility] Work Phone: Urobilinogen Auto test strip Ql (U)on 10-07-2021 Urobilinogen Ql (U) Normal mg/dl Normal [facility] Work Phone: XR CHEST 1V FRONTALon 2021 XR CHEST 1V FRONTAL Normal [facility] XR KNEE 2V AP/LAT RTon 10-07 XR KNEE 2V AP/LAT RT Normal [facility] aPTT PPPon 10-07-2021 aPTT Coag (PPP) [Time] 26.3 s Normal 23.0-32.4 [facility] Comment on above: Order Comment: Speci men Type: BLOOD SPECIMENOrdering Facility: [facility] Address: [address] [place], [place] [id number] Performed By: #### 1 4979-9, 27426-1 ####[facility]ATORYCLIA [id number] [address] [place] Absolute lymphocyte counton 10-06-2021 Lymphocytes Auto (Unsp spec) [#/Vol] 0.86 10*3/uL 0.83-4.51 [facility] Work Phone: Basophil percentageon 2021 Basophils/100 WBC (Bld) 0.3 % 0-1 [facility] Work Phone: Bilirubin [Mass/Vol] 0.50 mg/dL 0.20-1.00 [facility] Work Phone: Comment on above: For patients on eltr ombopag therapy, use of Dimension [place] TBIL is not recommended. Chloride [Moles/Vol] 96 mmol/L 98-107 [facility] Work Phone: Eosinophils/100 WBC (Bld) 0.3 % 0-5 [facility] Work Phone: Glucose [Mass/Vol] 169 mg/dL 74-106 [facility] Work Phone: Comment on above: Fasting Glucose resu lt greater than or equal to 126 mg/dL suggests DIABETES MELLITUS per A.D.A. criteria. Neutrophils (Bld) [#/Vol] 28.5 10*3/uL 2.0-7.7 [facility] Work Phone: Neutrophils/100 WBC (Bld) 90.5 % 47-70 [facility] Work Phone: [phone] Potassium [Moles/Vol] 3.1 mmol/L 3.5-5.1 [facility] Work Phone: [phone] Protein [Mass/Vol] 6.5 g/dL 6.4-8.2 [facility] Work Phone: [phone] Sodium [Moles/Vol] 130 mmol/L 136-145 [facility] Work Phone: [phone] WBC (Bld) [#/Vol] 31.5 10*3/uL 4.4-11.0 [facility] Work Phone: [phone] Comment on above: CRITICAL VALUE VERIF IED. CALLED TO GIANNA CHAIREZ10/06/21 2258 Anand Bolton.RESULTS READ BACK BY SAME . Blood erythrocytes count (nu mber/volume)on 10-06-2021 RBC (Bld) [#/Vol] 3.16 10*6/uL 4.2-5.4 [facility] Work Phone: [phone] Blood hemoglobin measurement (mass/volume)on 10-06-2021 Hemoglobin (Bld) [Mass/Vol] 10.3 g/dL 12.0-15.0 [facility] Work Phone: Blood lymphocytes/100 leukoc yteson 10-06-2021 Lymphocytes/100 WBC (Bld) 2.7 % 19-41 [facility] Work Phone: [phone] Blood manual differential co mment interpretation (narrative result)on 10-06-2021 Manual differential comment Donnie (Bld) [Interp] SCANNED [facility] Work Phone: Blood monocytes/100 leukocyt eson 10-06-2021 Monocytes/100 WBC (Bld) 5.3 % 0-10 [facility] Work Phone: [phone] Blood platelet mean volumeon 10-06-2021 Platelet mean volume (Bld) [Entitic vol] 9.9 fL 6.2-12.0 [facility] Work Phone: [phone] Determination of erythrocyte mean corpuscular volume (MCV)on 10-06-2021 MCV (RBC) [Entitic vol] 95.6 fL 81-99 [facility] Work Phone: [phone] Hematocrit Auto (Bld) [Volum e fraction]on 10-06-2021 Hematocrit (Bld) [Volume fraction] 30.2 % 37-47 [facility] Work Phone: [phone] Laboratory - Chemistry and C hemistry - challengeon 10-06-2021 ALP [Catalytic activity/Vol] 62 U/L 45-117 [facility] Work Phone: [phone] ALT [Catalytic activity/Vol] 26 U/L 13-56 [facility] Work Phone: [phone] CO2 [Moles/Vol] 27.0 mmol/L 21.0-32.0 [facility] Work Phone: [phone] Globulin (S) [Mass/Vol] 2.9 g/dL 2.2-4.2 W [facility] Work Phone: [phone] Urea nitrogen/Creatinine [Mass ratio] 23.8 mg/mg 10-20 [facility] Work Phone: [phone] Laboratory - Hematology and Cell countson 10-06-2021 Erythrocyte distribution width (RBC) [Entitic vol] 45.3 fL 35.1-43.9 [facility] Work Phone: [phone] Erythrocyte distribution width (RBC) [Ratio] 12.8 % 11.6-14.6 [facility] Work Phone: [phone] Immature granulocytes/100 WBC (Bld) 0.900 % 0.0-0.9 [facility] Work Phone: [phone] Comment on above: IG% - Immature Granu locytes (promyelocytes, myelocytes and metamyelocytes) > 1% indicates that a LEFT SHIFT is Present. MCH (RBC) [Entitic mass] 32.6 pg 27.0-32.0 [facility] Work Phone: Nucleated RBC/100 WBC (Bld) [Ratio] 0 % 0-5 [facility] Work Phone: [phone] MCHC Auto (RBC) [Mass/Vol]on 10-06-2021 MCHC (RBC) [Mass/Vol] 34.1 g/dL 32-36 [facility] Work Phone: No Panel Informationon 10-06 Estimated Creatinine Clearance Calc 54.70 ml/min [facility] Work Phone: [phone] Estimated GFR (MDRD) Amer 85 mL/min >60 [facility] Work Phone: [phone] Comment on above: GFR Calc Estimated GFR (MDRD) Non-Af Amer 70 mL/min >60 [facility] Work Phone: [phone] Comment on above: Non- GFR Calc Ethyl Alcohol Level < 3.0 mg/dL [facility] Work Phone: Comment on above: The serum:whole bloo d ethanol ratio is approximately 1.14and varies slightly with hematocrit. Medical Alcohol reference interval and critical value innon-tolerant individuals; 50 - 100 Impairment 100 Intoxication 100 - 250 Severe Poisoning 250 - 400 Deep/possible fatal coma Platelets bldon 10-06-2021 Platelets (Bld) [#/Vol] 317 10*3/uL 150-450 [facility] Work Phone: [phone] Review by pathologiston 09-20 Pathologist review Donnie (Unsp spec) [Interp] August july [facility] Work Phone: [phone] Pathologist review Donnie (Unsp spec) [Interp] Reviewed [facility] Work Phone: [phone] Comment on above: Previous reported re sult: August july Edited by: RGOOD on 10/09/21:1330Neutrophilic leukocytosis.Normocytic anemia.Clinical correlation necessary.Greg Guerin M.D. 10/09/21 AMENDED REPORT 10/09/21 1330 PATH REV previously reported as: August Serum or plasma albumin rajni urement (mass/volume)on 10-06-2021 Albumin [Mass/Vol] 3.6 g/dL 3.2-5.0 [facility] Work Phone: [phone] Serum or plasma albumin/glob ulin mass ratioon 10-06-2021 Albumin/Globulin [Mass ratio] 1.2 {ratio} 0.9-2.4 [facility] Work Phone: [phone] Serum or plasma calcium rajni urement (mass/volume)on 10-06-2021 Calcium [Mass/Vol] 8.2 mg/dL 8.5-10.1 [facility] Work Phone: [phone] Serum or plasma creatinine m easurement (mass/volume)on 10-06-2021 Creatinine [Mass/Vol] 0.84 mg/dL 0.55-1.02 [facility] Work Phone: Comment on above: The validity of the calculated GFR & GFRAA in patients over 70 years has not been determined. Clinical correlation is essential. Serum or plasma urea nitroge n measurement (mass/volume)on 10-06-2021 Urea nitrogen [Mass/Vol] 20 mg/dL 7-18 [facility] Work Phone: [phone] Thin prep Papanicolaou smear with manual screeningon 10-06-2021 Thin prep Papanicolaou smear with manual screening 31 U/L 15-37 [facility] Work Phone: [phone] Thin prep Papanicolaou smear with manual screening 7 5-15 [facility] Work Phone: [phone] Laboratory - Chemistry and C hemistry - challengeon 07-28-2021 Free T4 [Mass/Vol] 1.04 ng/dL 0.76-1.46 [facility] Work Phone: [phone] No Panel Informationon 07-28 Thyroid Stimulating Hormone (TSH) 2.21 uIU/mL 0.358-3.74 [facility] Work Phone: [phone] Influenza virus A and B RNA and SARS-CoV-2 (COVID-19) N gene panel LEONA+probe (Resp)on 07-13-2021 FLUAV RNA LEONA+probe Ql (Unsp spec) Negative Negative for Influenza A by RT-PCR [facility] FLUBV RNA LEONA+probe Ql (Unsp spec) Negative Negative for Influenza B by RT-PCR [facility] SARS-CoV-2 (COVID-19) RNA LEONA+probe Ql (Resp) SARS-CoV-2 (Agent of COVID-19) Not Detected by RT-PCR or equivalent method. Not Detected [facility] Absolute lymphocyte counton 06-11-2021 Lymphocytes Auto (Unsp spec) [#/Vol] 1.63 10*3/uL 0.83-4.51 [facility] Work Phone: Basophil percentageon 2021 Basophil percentage 0 SEEN /hpf 0-5 [facility] Work Phone: Basophils/100 WBC (Bld) 0.5 % 0-1 [facility] Work Phone: Chloride [Moles/Vol] 99 mmol/L 98-107 [facility] Work Phone: Eosinophils/100 WBC (Bld) 1.4 % 0-5 [facility] Work Phone: Glucose [Mass/Vol] 110 mg/dL 74-106 [facility] Work Phone: Comment on above: Fasting Glucose resu lt from 100 to 125 mg/dL suggests IMPAIRED HOMEOSTASIS per A.D.A. criteria. Neutrophils (Bld) [#/Vol] 9.6 10*3/uL 2.0-7.7 [facility] Work Phone: Neutrophils/100 WBC (Bld) 78.8 % 47-70 [facility] Work Phone: Potassium [Moles/Vol] 3.8 mmol/L 3.5-5.1 [facility] Work Phone: Sodium [Moles/Vol] 135 mmol/L 136-145 [facility] Work Phone: WBC (Bld) [#/Vol] 12.1 10*3/uL 4.4-11.0 [facility] Work Phone: Bilirubin Test strip Ql (U)o n 06-11-2021 Bilirubin Ql (U) Negative Negative [facility] Work Phone: Blood erythrocytes count (nu mber/volume)on 06-11-2021 RBC (Bld) [#/Vol] 3.84 10*6/uL 4.2-5.4 [facility] Work Phone: Blood hemoglobin measurement (mass/volume)on 06-11-2021 Hemoglobin (Bld) [Mass/Vol] 12.6 g/dL 12.0-15.0 [facility] Work Phone: Blood lymphocytes/100 leukoc yteson 06-11-2021 Lymphocytes/100 WBC (Bld) 13.4 % 19-41 [facility] Work Phone: Blood monocytes/100 leukocyt eson 06-11-2021 Monocytes/100 WBC (Bld) 5.6 % 0-10 W [facility] Work Phone: Blood platelet mean volumeon 06-11-2021 Platelet mean volume (Bld) [Entitic vol] 10.4 fL 6.2-12.0 [facility] Work Phone: Determination of erythrocyte mean corpuscular volume (MCV)on 06-11-2021 MCV (RBC) [Entitic vol] 94.5 fL 81-99 W [facility] Work Phone: Hematocrit Auto (Bld) [Volum e fraction]on 06-11-2021 Hematocrit (Bld) [Volume fraction] 36.3 % 37-47 [facility] Work Phone: Ketones Test strip Ql (U)on 06-11-2021 Ketones Ql (U) Negative Negative [facility] Work Phone: Laboratory - Chemistry and C hemistry - challengeon 06-11-2021 CO2 [Moles/Vol] 28.0 mmol/L 21.0-32.0 [facility] Work Phone: Urea nitrogen/Creatinine [Mass ratio] 27.0 mg/mg 10- [facility] Work Phone: [phone] Laboratory - Hematology and Cell countson 06-11-2021 Erythrocyte distribution width (RBC) [Entitic vol] 45.8 fL 35.1-43.9 [facility] Work Phone: [phone] Erythrocyte distribution width (RBC) [Ratio] 13.2 % 11.6-14.6 [facility] Work Phone: [phone] Immature granulocytes/100 WBC (Bld) 0.300 % 0.0-0.9 [facility] Work Phone: [phone] Comment on above: IG% - Immature Granu locytes (promyelocytes, myelocytes and metamyelocytes) > 1% indicates that a LEFT SHIFT is Present. MCH (RBC) [Entitic mass] 32.8 pg 27.0-32.0 [facility] Work Phone: [phone] Nucleated RBC/100 WBC (Bld) [Ratio] 0 % 0-5 [facility] Work Phone: [phone] MCHC Auto (RBC) [Mass/Vol]on 06-11-2021 MCHC (RBC) [Mass/Vol] 34.7 g/dL 32-36 [facility] Work Phone: [phone] Mucus LM Ql (Urine sed)on Mucus Ql (Urine sed) 0 SEEN /hpf [facility] Work Phone: [phone] Nitrite Test strip Ql (U)on 06-11-2021 Nitrite Ql (U) Negative Negative [facility] Work Phone: [phone] Panel Informationon 06-11 Estimated Creatinine Clearance Calc 42.62 ml/min [facility] Work Phone: [phone] Estimated GFR (MDRD) Amer 149 mL/min >60 [facility] Work Phone: [phone] Comment on above: GFR Calc Estimated GFR (MDRD) Non-Af Amer 123 mL/min >60 [facility] Work Phone: [phone] Comment on above: Non- GFR Calc Platelets bldon 06-11-2021 Platelets (Bld) [#/Vol] 301 10*3/uL 150-450 [facility] Work Phone: Protein Test strip Ql (U)on 06-11-2021 Protein Ql (U) Negative Negative [facility] Work Phone: [phone] Serum or plasma calcium rajni urement (mass/volume)on 06-11-2021 Calcium [Mass/Vol] 9.4 mg/dL 8.5-10.1 [facility] Work Phone: [phone] Serum or plasma creatinine m easurement (mass/volume)on 06-11-2021 Creatinine [Mass/Vol] 0.52 mg/dL 0.55-1.02 [facility] ster [facility] Work Phone: Comment on above: The validity of the calculated GFR & GFRAA in patients over 70 years has not been determined. Clinical correlation is essential. Serum or plasma urea nitroge n measurement (mass/volume)on 06-11-2021 Urea nitrogen [Mass/Vol] 14 mg/dL 7-18 [facility] Work Phone: [phone] Squamous epithelial cells de tection in urine sediment by light microscopyon 06-11-2021 Epithelial cells.squamous LM Ql (Urine sed) 0 SEEN /hpf 5-10 [facility] Work Phone: [phone] Thin prep Papanicolaou smear with manual screeningon 06-11-2021 Thin prep Papanicolaou smear with manual screening 8 5-15 [facility] Work Phone: Urine blood detectionon 05-24 0 RBC Ql (U) Negative Negative [facility] Inc Work Phone: [phone] RBC Ql (U) 0 SEEN /hpf 0-5 [facility] Work Phone: [phone] Urine clarityon 06-11-2021 Clarity (U) Clear Clear [facility] Work Phone: [phone] Urine color determinationon 06-11-2021 Color (U) Yellow Yellow [facility] Work Phone: [phone] Urine glucose detectionon Glucose Ql (U) Normal mg/dl Normal [facility] Work Phone: Urine leukocyte esterase det ection by dipstickon 06-11-2021 Leukocyte esterase Test strip Ql (U) Negative Negative [facility] Work Phone: Urine pHon 06-11-2021 pH (U) 7.0 [pH] 5.0 - 8.0 [facility] Work Phone: Urine sediment bacteria coun t by microscopy (number/high power field)on 06-11-2021 Bacteria LM.HPF (Urine sed) [#/Area] 0 /[HPF] None Seen [facility] Work Phone: Urine specific gravity measu rementon 06-11-2021 Specific gravity (U) [Rel density] 1.010 1.002-1.030 [facility] Work Phone: Urobilinogen Auto test strip Ql (U)on 06-11-2021 Urobilinogen Ql (U) Normal mg/dl Normal [facility] Work Phone: Absolute lymphocyte counton 05-21-2021 Lymphocytes Auto (Unsp spec) [#/Vol] 1.29 10*3/uL 0.83-4.51 [facility] Work Phone: Basophil percentageon 2021 Basophils/100 WBC (Bld) 0.7 % 0-1 [facility] Work Phone: Chloride [Moles/Vol] 98 mmol/L 98-107 [facility] Work Phone: Eosinophils/100 WBC (Bld) 2.5 % 0-5 [facility] Work Phone: Glucose [Mass/Vol] 119 mg/dL 74-106 [facility] Work Phone: Comment on above: Fasting Glucose resu lt from 100 to 125 mg/dL suggests IMPAIRED HOMEOSTASIS per A.D.A. criteria. Neutrophils (Bld) [#/Vol] 6.4 10*3/uL 2.0-7.7 [facility] Work Phone: Neutrophils/100 WBC (Bld) 73.4 % 47-70 [facility] Work Phone: Potassium [Moles/Vol] 3.5 mmol/L 3.5-5.1 [facility] Work [facility]: Sodium [Moles/Vol] 132 mmol/L 136-145 [facility] Work Phone: WBC (Bld) [#/Vol] 8.8 10*3/uL 4.4-11.0 [facility] Work Phone: Blood erythrocytes count (nu mber/volume)on 05-21-2021 RBC (Bld) [#/Vol] 3.66 10*6/uL 4.2-5.4 [facility]: Blood hemoglobin measurement (mass/volume)on 05-21-2021 Hemoglobin (Bld) [Mass/Vol] 11.5 g/dL 12.0-15.0 [facility] Work Phone: Blood lymphocytes/100 leukoc yteson 05-21-2021 Lymphocytes/100 WBC (Bld) 14.7 % 19-41 [facility] Work Phone: Blood monocytes/100 leukocyt eson 05-21-2021 Monocytes/100 WBC (Bld) 8.5 % 0-10 W [facility] Work Phone: Blood platelet mean volumeon 05-21-2021 Platelet mean volume (Bld) [Entitic vol] 10.7 fL 6.2-12.0 [facility] Work Phone: Determination of erythrocyte mean corpuscular volume (MCV)on 05-21-2021 MCV (RBC) [Entitic vol] 94.0 fL 81-99 W [facility] Work Phone: Hematocrit Auto (Bld) [Volum e fraction]on 05-21-2021 Hematocrit (Bld) [Volume fraction] 34.4 % 37-47 [facility] Work Phone: Laboratory - Chemistry and C hemistry - challengeon 05-21-2021 CO2 [Moles/Vol] 27.0 mmol/L 21.0-32.0 [facility] Work Phone: [phone] Urea nitrogen/Creatinine [Mass ratio] 31.0 mg/mg 10-20 [facility] Work Phone: [phone] Laboratory - Hematology and Cell countson 05-21-2021 Erythrocyte distribution width (RBC) [Entitic vol] 44.3 fL 35.1-43.9 [facility] Work Phone: [phone] Erythrocyte distribution width (RBC) [Ratio] 12.7 % 11.6-14.6 [facility] Work Phone: [phone] Immature granulocytes/100 WBC (Bld) 0.200 % 0.0-0.9 [facility] Work Phone: [phone] Comment on above: IG% - Immature Granu locytes (promyelocytes, myelocytes and metamyelocytes) > 1% indicates that a LEFT SHIFT is Present. MCH (RBC) [Entitic mass] 31.4 pg 27.0-32.0 [facility] Work Phone: [phone] Nucleated RBC/100 WBC (Bld) [Ratio] 0 % 0-5 [facility] Work Phone: [phone] MCHC Auto (RBC) [Mass/Vol]on 05-21-2021 MCHC (RBC) [Mass/Vol] 33.4 g/dL 32-36 [facility] Work Phone: [phone] Panel Informationon 05-21 Estimated Creatinine Clearance Calc 46.20 ml/min [facility] Work Phone: [phone] Estimated GFR (MDRD) Amer 174 mL/min >60 [facility] Work Phone: [phone] Comment on above: GFR Calc Estimated GFR (MDRD) Non-Af Amer 144 mL/min >60 [facility] Work Phone: [phone] Comment on above: Non- GFR Calc Ethyl Alcohol Level < 3.0 mg/dL [facility] Work Phone: [phone] Comment on above: The serum:whole bloo d ethanol ratio is approximately 1.14and varies slightly with hematocrit. Medical Alcohol reference interval and critical value innon-tolerant individuals; 50 - 100 Impairment 100 Intoxication 100 - 250 Severe Poisoning 250 - 400 Deep/possible fatal coma Platelets bldon 05-21-2021 Platelets (Bld) [#/Vol] 267 10*3/uL 150-450 [facility] Work Phone: Serum or plasma calcium rajni urement (mass/volume)on 05-21-2021 Calcium [Mass/Vol] 8.2 mg/dL 8.5-10.1 [facility] Work Phone: Serum or plasma creatinine m easurement (mass/volume)on 05-21-2021 Creatinine [Mass/Vol] 0.45 mg/dL 0.55-1.02 [facility] Work Phone: Comment on above: The validity of the calculated GFR & GFRAA in patients over 70 years has not been determined. Clinical correlation is essential. Serum or plasma urea nitroge n measurement (mass/volume)on 05-21-2021 Urea nitrogen [Mass/Vol] 14 mg/dL 7-18 [facility] Work Phone: Thin prep Papanicolaou smear with manual screeningon 05-21-2021 Thin prep Papanicolaou smear with manual screening 7 5-15 [facility] Work Phone: XR Humerus - left AP and Lat eralon 03-17-2021 IMPRESSION: Mildly comminuted fracture of the left humeral diaphysis. Overlying soft tissue swelling. [facility] Transcribe Date/Time: Mar 17 2021 2:43P Dictated by : ARISTEO HODGE MD This examination was interpreted and the report reviewed and electronically signed by: ARISTEO HODGE MD on Mar 17 2021 2:45PM [facility] DIVISION OF RADIOLOGY * * *Final Report* [...] the single view. DIVISION OF RADIOLOGY Provider, [facility] - 03/17/2021 * * *Final Report* [...] left humeral diaphysis. Overlying soft tissue swelling. Temperature Regulator: [facility] Transcribe Date/Time: Mar 17 2021 2:43P Dictated by : ARISTEO HODGE MD This examination was interpreted and the report reviewed and electronically signed by: ARISTEO HODGE MD on Mar 17 2021 2:45PM [facility] Radiology Study observation (narrative) Lakisha mckenna [facility] XR Humerus - left AP and Lat eralOrdered By: [facility] Provider on 03-17-2021 [facility] Add On Lab Teston 04-17-2020 Sodium [Moles/Vol] Accepted [facility] [place] [place] Comment on above: Specimen available & acceptable for analysis. Test Performed by [facility], [address] [place] [address] [facility], [place] Sodium [Moles/Vol] Accepted [facility] [employer] Comment on above: Specimen available & acceptable for analysis. Test Performed by [facility], [facility] [place] [address] [place], [place] Add on test from HISon 04-17 Add on test from HIS Accepted Normal [facility] Comment on above: Result Comment: Spec imen available & acceptable for analysis. Performed By: #### A DDON ####[id number] [place], [place] Add on test from HIS Accepted Normal [facility] Comment on above: Result Comment: Spec imen available & acceptable for analysis. Performed By: #### A DDON #### [facility] [address] [place], [place] Albuminon 04-17-2020 Albumin [Mass/Vol] 3.2 g/dL Low 3.5 - 5 g/dL [place] Interpretation and review of laboratory results Abnormal [place] Test Performed by [facility], [address] [place] [address] [place] Albumin, Serumon 04-17-2020 Albumin [Mass/Vol] 3.2 g/dL Low 3.5-5.0 [facility] Comment on above: Performed By: #### B MP3M, TSH5, MG3, HEMDF, ALB3, B12, PHOS3 ####[id number] [place], [place] Basic Metabolic Panelon 03-23 Anion gap [Moles/Vol] 6 Normal [facility] Comment on above: Performed By: #### B MP3M, TSH5, MG3, HEMDF, ALB3, B12, PHOS3 ####[address] [place], [place] Calcium [Mass/Vol] 6.8 mg/dL Low 8.4-10.4 [facility] Comment on above: Performed By: #### B MP3M, TSH5, MG3, HEMDF, ALB3, B12, PHOS3 ####[id number] [place], [place] CO2 [Moles/Vol] 29 mmol/L Normal 22-30 [facility] Comment on above: Performed By: #### B MP3M, TSH5, MG3, HEMDF, ALB3, B12, PHOS3 ####[address] [place], [place] Glucose [Mass/Vol] 103 mg/dL High 70-100 [facility] Comment on above: Performed By: #### B MP3M, TSH5, MG3, HEMDF, ALB3, B12, PHOS3 ####[facility] [place], [place] Urea nitrogen [Mass/Vol] 13 mg/dL Normal 7-20 [facility] Comment on above: Performed By: #### B MP3M, TSH5, MG3, HEMDF, ALB3, B12, PHOS3 ####[id number] [place], [place] Creatinine [Mass/Vol] 0.56 mg/dL Normal 0.52-1.25 [facility] Comment on above: Performed By: #### B MP3M, TSH5, MG3, HEMDF, ALB3, B12, PHOS3 ####[address] [place], [place] GFR/1.73 sq M predicted among blacks MDRD (S/P/Bld) [Vol rate/Area] mL/min/{1.73_m2} Normal >60 [facility] Comment on above: Performed By: #### B MP3M, TSH5, MG3, HEMDF, ALB3, B12, PHOS3 ####[address] [place], [place] GFR/1.73 sq M predicted among non-blacks MDRD (S/P/Bld) [Vol rate/Area] mL/min/{1.73_m2} Normal >60 [facility] Comment on above: Result Comment: KDIG [...] MP3M, TSH5, MG3, HEMDF, ALB3, B12, PHOS3 ####[address] [place], [place] Chloride [Moles/Vol] 100 mmol/L Normal 98-107 [facility] Comment on above: Performed By: #### B MP3M, TSH5, MG3, HEMDF, ALB3, B12, PHOS3 ####[address] [place], [place] Potassium [Moles/Vol] 3.3 mmol/L Low 3.5-5.1 [facility] Comment on above: Performed By: #### B MP3M, TSH5, MG3, HEMDF, ALB3, B12, PHOS3 ####[address] [place], [place] Sodium [Moles/Vol] 135 mmol/L Normal 135-145 [facility] Comment on above: Performed By: #### B MP3M, TSH5, MG3, HEMDF, ALB3, B12, PHOS3 ####[address] [place], [place] Basic Metabolic Panel w/ Ref jason to MGon 04-17-2020 Anion gap [Moles/Vol] 6 mmol/L [facility], [place] Calcium [Mass/Vol] 6.8 mg/dL Low 8.4 - 10. 4 mg/dL [facility], [place] Chloride [Moles/Vol] 100 mmol/L 98 - 10 7 mmol/L [facility], [place] CO2 [Moles/Vol] 29 mmol/L 22 - 30 mmol/L [facility], [place] Creatinine [Mass/Vol] 0.56 mg/dL 0.52 - 1.25 mg/dL [place] EGFR IF NonAfrican Afghan >90.0 >60 mL/min [place] Comment on above: KDIGO guidelines pro [...] MDRD (S/P/Bld) [Vol rate/Area] mL/min/{1.73_m2} >60 mL/min [place] Glucose [Mass/Vol] 103 mg/dL High 70 - 100 mg/dL [place] Interpretation and review of laboratory results Abnormal [place] Potassium [Moles/Vol] 3.3 mmol/L Low 3.5 - 5.1 mmol/L [place] Sodium [Moles/Vol] 135 mmol/L 135 - 145 mmol/L [place] Urea nitrogen [Mass/Vol] 13 mg/dL 7 - 20 mg/dL [place] CBC auto differentialon 03-23 Absolute Baso # 0.1 10*3/uL 0 - 0.2 10*3/uL [place] Absolute Neut # 8.1 10*3/uL High 1.8 - 7 10*3/uL [place] Basophils/100 WBC (Bld) 0.6 % 0 - 2 % M [place], [place] Eosinophils (Bld) [#/Vol] 0.1 10*3/uL 0 - 0.5 10*3/uL [place] Eosinophils/100 WBC (Bld) 1.1 % 1 - 6 % [place] Erythrocyte distribution width (RBC) [Ratio] 14.9 % High 11.5 - 14.5 % [place] Granulocytes/100 WBC (Bld) 71.9 % 40 - 80 % [place] Hematocrit (Bld) [Volume fraction] 31.7 % Low 35 - 47 % [place] Hemoglobin (Bld) [Mass/Vol] 10.6 g/dL Low 11.7 - 16 g/dL [place] Interpretation and review of laboratory results Abnormal [place] Lymphocytes (Bld) [#/Vol] 1.9 10*3/uL 1 - 4.3 10*3/uL [place] Lymphocytes/100 WBC (Bld) 16.9 % Low 20 - 40 % [place] MCH (RBC) [Entitic mass] 33.2 pg 26 - 34 pg [place] MCHC (RBC) [Mass/Vol] 33.3 % 32 - 36 % [place] MCV (RBC) [Entitic vol] 99.7 fL High 79 - 98 fL [place], [place] Monocytes (Bld) [#/Vol] 1.1 10*3/uL High 0 - 0.8 10*3/uL [place] Monocytes/100 WBC (Bld) 9.5 % 2 - 10 % [place] Platelet mean volume (Bld) [Entitic vol] 8.7 fL 7.4 - 10.4 fL [place] Platelets (Bld) [#/Vol] 232 10*3/uL 140 - 440 10*3/uL [place] RBC (Bld) [#/Vol] 3.18 10*6/uL Low 3.8 - 5.2 10*6/uL [place] WBC (Bld) [#/Vol] 11.2 10*3/uL High 3.6 - 10.7 10*3/uL [place] Test Performed by [facility], [address] [place] [id number] [place], [place] CT Head or Brain w/o Contras ton 04-17-2020 CT Head or Brain w/o Contrast Patient Name: AIDEN FIELDS Computed Tomography ACCESSION EXAM DATE/TIME PROCEDURE ORDERING PROVIDER [id number] 04/17/2020 06:[address] Head or Brain w/o MD LEY ANDREW Contrast CPT code 46601 Reason For Exam (CT Head or Brain [...] Transcribed Date and Time: 04/17/2020 9:04 Normal [facility] CT head without contraston 1 06-18-2019 Greg, [facility] Incoming [facility] - 04/17/2020 9:11 AM EST Patient Name: AIDEN FIELDS Computed Tomography ACCESSION EXAM DATE/TIME PROCEDURE ORDERING PROVIDER [id number] 04/17/2020 06:[address] Head or Brain w/o MD LEY ANDREW Contrast CPT code 36841 Reason For Exam (CT Head or Brain [...] JOHN Transcribed Date and Time: 04/17/2020 9:04 [place] Patient Name: AIDEN FIELDS Computed Tomography ACCESSION EXAM DATE/TIME PROCEDURE ORDERING PROVIDER [id number] 04/17/2020 06:[address] Head or Brain w/o MD LEY ANDREW Contrast CPT code 61487 Reason For Exam (CT Head or Brain [...] JOHN Transcribed Date and Time: 04/17/2020 9:04 [facility], [place] Hemogram w/ [employer]od[employer] 04-17 Abs Baso Cnt 0.1 10*3/uL Normal 0.0-0.2 [facility] Comment on above: Performed By: #### B MP3M, TSH5, MG3, HEMDF, ALB3, B12, PHOS3 ####[address] [place], [place] Abs Neutrophile Cnt 8.1 10*3/uL High 1.8-7.0 [facility] Comment on above: Performed By: #### B MP3M, TSH5, MG3, HEMDF, ALB3, B12, PHOS3 ####[address] [place], [place] Basophils/100 WBC (Bld) 0.6 % Normal 0.0-2.0 [facility] Comment on above: Performed By: #### B MP3M, TSH5, MG3, HEMDF, ALB3, B12, PHOS3 ####[id number] [place], [place] Eosinophils (Bld) [#/Vol] 0.1 10*3/uL Normal 0.0-0.5 [facility] Comment on above: Performed By: #### B MP3M, TSH5, MG3, HEMDF, ALB3, B12, PHOS3 ####[id number] [place], [place] Eosinophils/100 WBC (Bld) 1.1 % Normal 1.0-6.0 [facility] Comment on above: Performed By: #### B MP3M, TSH5, MG3, HEMDF, ALB3, B12, PHOS3 ####[address] [place], [place] Erythrocyte distribution width (RBC) [Ratio] 14.9 % High 11.5-14.5 [facility] Comment on above: Performed By: #### B MP3M, TSH5, MG3, HEMDF, ALB3, B12, PHOS3 ####[address] Granulocytes/100 WBC (Bld) 71.9 % Normal 40.0-80.0 [facility] Comment on above: Performed By: #### B MP3M, TSH5, MG3, HEMDF, ALB3, B12, PHOS3 ####[address] Hematocrit (Bld) [Volume fraction] 31.7 % Low 35.0-47.0 [facility] Comment on above: Performed By: #### B MP3M, TSH5, MG3, HEMDF, ALB3, B12, PHOS3 ####[address] Hemoglobin (Bld) [Mass/Vol] 10.6 g/dL Low 11.7-16.0 [facility] Comment on above: Performed By: #### B MP3M, TSH5, MG3, HEMDF, ALB3, B12, PHOS3 ####[address] Lymphocytes (Bld) [#/Vol] 1.9 10*3/uL Normal 1.0-4.3 [facility] Comment on above: Performed By: #### B MP3M, TSH5, MG3, HEMDF, ALB3, B12, PHOS3 ####[address] Lymphocytes/100 WBC (Bld) 16.9 % Low 20.0-40.0 [facility] Comment on above: Performed By: #### B MP3M, TSH5, MG3, HEMDF, ALB3, B12, PHOS3 ####[id number] [place], [place] MCH (RBC) [Entitic mass] 33.2 pg Normal 26.0-34.0 [facility] Comment on above: Performed By: #### B MP3M, TSH5, MG3, HEMDF, ALB3, B12, PHOS3 ####[id number] [place], [place] MCHC (RBC) [Mass/Vol] 33.3 % Normal 32.0-36.0 [facility] Comment on above: Performed By: #### B MP3M, TSH5, MG3, HEMDF, ALB3, B12, PHOS3 ####[address] [place], [place] MCV (RBC) [Entitic vol] 99.7 fL High 79.0-98.0 [facility] Comment on above: Performed By: #### B MP3M, TSH5, MG3, HEMDF, ALB3, B12, PHOS3 ####[address] Monocytes (Bld) [#/Vol] 1.1 10*3/uL High 0.0-0.8 [facility] Comment on above: Performed By: #### B MP3M, TSH5, MG3, HEMDF, ALB3, B12, PHOS3 ####[address] Monocytes/100 WBC (Bld) 9.5 % Normal 2.0-10.0 [facility] Comment on above: Performed By: #### B MP3M, TSH5, MG3, HEMDF, ALB3, B12, PHOS3 ####[address] Platelet mean volume (Bld) [Entitic vol] 8.7 fL Normal 7.4-10.4 [facility] Comment on above: Performed By: #### B MP3M, TSH5, MG3, HEMDF, ALB3, B12, PHOS3 ####[facility] [place], [place] Platelets (Bld) [#/Vol] 232 10*3/uL Normal 140-440 [facility] Comment on above: Performed By: #### B MP3M, TSH5, MG3, HEMDF, ALB3, B12, PHOS3 ####[facility] [place], [place] RBC (Bld) [#/Vol] 3.18 10*6/uL Low 3.80-5.20 [facility] Comment on above: Performed By: #### B MP3M, TSH5, MG3, HEMDF, ALB3, B12, PHOS3 ####[address] [place], [place] WBC (Bld) [#/Vol] 11.2 10*3/uL High 3.6-10.7 [facility] Comment on above: Performed By: #### B MP3M, TSH5, MG3, HEMDF, ALB3, B12, PHOS3 ####[address] [place], [place] Lactic Acidon 04-17-2020 Lactate [Moles/Vol] 1.8 mmol/L Normal 0.7-2.0 [facility] Comment on above: Performed By: #### L ACT3 #### [facility] [address] [place], [place] Lactic Acid, Plasmaon 2019 Lactate [Moles/Vol] 1.8 mmol/L 0.7 - 2 mmol/L [place] Test Performed by [facility], [address] [place] [address] [place], [place] Magnesiumon 04-17-2020 Magnesium [Mass/Vol] 1.4 mg/dL Low 1.6-2.3 [facility] Comment on above: Performed By: #### B MP3M, TSH5, MG3, HEMDF, ALB3, B12, PHOS3 ####[address] [place], [place] Interpretation and review of laboratory results Abnormal [place] Magnesium [Mass/Vol] 1.4 mg/dL Low 1.6 - 2 .3 mg/dL [place] Test Performed by [facility], [facility] [place] [address] [place] Otheron 04-17-2020 Test Performed by [facility], [facility] [place] [facility] [place] [address] [place] Phosphoruson 04-17-2020 Phosphate [Mass/Vol] 3.4 mg/dL Normal 2.5-4.5 [facility] Comment on above: Performed By: #### B MP3M, TSH5, MG3, HEMDF, ALB3, B12, PHOS3 ####[facility] [employer] [id number] [place] [address] Phosphate [Mass/Vol] 3.4 mg/dL 2.5 - 4 .5 mg/dL [place] TSH without Reflexon 020 Interpretation and review of laboratory results Abnormal [place] TSH Qn 18.063 u[IU]/mL High 0.465 - 4.68 u[IU]/mL [place] Test Performed by [facility], [facility] [place] [address] [place] Thyroid Stim. Hormoneon 03-23 Thyroid Stim. Hormone 18.063 u[IU]/mL High 0.465-4.6 80 [facility] Comment on above: Performed By: #### B MP3M, TSH5, MG3, HEMDF, ALB3, B12, PHOS3 ####[facility] [employer] [id number] [place] [address] Vitamin B12on 04-17-2020 Cobalamin (Vitamin B12) [Mass/Vol] 345 pg/mL Normal 239-931 [facility] Comment on above: Performed By: #### B MP3M, TSH5, MG3, HEMDF, ALB3, B12, PHOS3 ####[facility] [employer] [id number] [place] [address] Cobalamin (Vitamin B12) [Mass/Vol] 345 pg/mL 239 - 931 pg/mL [place] Test Performed by [facility], [address] [place] [address] [place] Basic Metabolic Panelon 12-2 Calcium [Mass/Vol] 7.9 mg/dL Low 8.4-10.4 [facility] Comment on above: Performed By: #### E TOH4, BMP3M, LACT3, HEMDF #### [address] [place], [place] Glucose [Mass/Vol] 116 mg/dL High 70-100 [facility] Comment on above: Performed By: #### E TOH4, BMP3M, LACT3, HEMDF #### [address] [address] [place], [place] Anion gap [Moles/Vol] 7 Normal [facility] Comment on above: Performed By: #### E TOH4, BMP3M, LACT3, HEMDF #### [address] [address] [place], [place] CO2 [Moles/Vol] 29 mmol/L Normal 22-30 [facility] Comment on above: Performed By: #### E TOH4, BMP3M, LACT3, HEMDF #### [address] [place] [place], [place] Creatinine [Mass/Vol] 0.48 mg/dL Low 0.52-1.25 [facility] Comment on above: Performed By: #### E TOH4, BMP3M, LACT3, HEMDF #### [address] [place], [place] GFR/1.73 sq M predicted among blacks MDRD (S/P/Bld) [Vol rate/Area] mL/min/{1.73_m2} Normal >60 [facility] Comment on above: Performed By: #### E TOH4, BMP3M, LACT3, HEMDF #### [address] [place], [place] GFR/1.73 sq M predicted among non-blacks MDRD (S/P/Bld) [Vol rate/Area] mL/min/{1.73_m2} Normal >60 [facility] Comment on above: Result Comment: KDIG [...] #### E TOH4, BMP3M, LACT3, HEMDF #### [address] [place] Urea nitrogen [Mass/Vol] 13 mg/dL Normal 7-20 [facility] Comment on above: Performed By: #### E TOH4, BMP3M, LACT3, HEMDF #### [address] Chloride [Moles/Vol] 99 mmol/L Normal 98-107 [facility] Comment on above: Performed By: #### E TOH4, BMP3M, LACT3, HEMDF #### [address] Potassium [Moles/Vol] 3.6 mmol/L Normal 3.5-5.1 [facility] Comment on above: Performed By: #### E TOH4, BMP3M, LACT3, HEMDF #### [address] Sodium [Moles/Vol] 136 mmol/L Normal 135-145 [facility] Comment on above: Performed By: #### E TOH4, BMP3M, LACT3, HEMDF #### [address] [id number] Basic Metabolic Panel w/ Ref jason to MG 04-16-2020 Anion gap [Moles/Vol] 7 mmol/L [place] Calcium [Mass/Vol] 7.9 mg/dL Low 8.4 - 10. 4 mg/dL [place] Chloride [Moles/Vol] 99 mmol/L 98 - 10 7 mmol/L [place] CO2 [Moles/Vol] 29 mmol/L 22 - 30 mmol/L [place] Creatinine [Mass/Vol] 0.48 mg/dL Low 0.52 - 1.25 mg/dL [place] EGFR IF NonAfrican [place] >90.0 >60 mL/min [place] Comment on above: KDIGO guidelines pro [...] MDRD (S/P/Bld) [Vol rate/Area] mL/min/{1.73_m2} >60 mL/min [place] Glucose [Mass/Vol] 116 mg/dL High 70 - 100 mg/dL [place] Interpretation and review of laboratory results Abnormal [place] Potassium [Moles/Vol] 3.6 mmol/L 3.5 - 5.1 mmol/L [place] Sodium [Moles/Vol] 136 mmol/L 135 - 145 mmol/L [place] Urea nitrogen [Mass/Vol] 13 mg/dL 7 - 20 mg/dL [place] CBC auto differentialon 12-2 Absolute Baso # 0.1 10*3/uL 0 - 0.2 10*3/uL [place] Absolute Neut # 10.3 10*3/uL High 1.8 - 7 10*3/uL [place] Basophils/100 WBC (Bld) 0.4 % 0 - 2 % [place] Eosinophils (Bld) [#/Vol] 0.0 10*3/uL 0 - 0.5 10*3/uL [place] Eosinophils/100 WBC (Bld) 0.4 % Low 1 - 6 % [place] Erythrocyte distribution width (RBC) [Ratio] 14.6 % High 11.5 - 14.5 % [place] Granulocytes/100 WBC (Bld) 82.2 % High 40 - 80 % [place] Hematocrit (Bld) [Volume fraction] 36.4 % 35 - 47 % [place] Hemoglobin (Bld) [Mass/Vol] 12.1 g/dL 11.7 - 16 g/dL [place] Interpretation and review of laboratory results Abnormal [place] Lymphocytes (Bld) [#/Vol] 1.1 10*3/uL 1 - 4.3 10*3/uL [place] Lymphocytes/100 WBC (Bld) 9.1 % Low 20 - 40 % [place] MCH (RBC) [Entitic mass] 33.0 pg 26 - 34 pg [place] MCHC (RBC) [Mass/Vol] 33.2 % 32 - 36 % [place] MCV (RBC) [Entitic vol] 99.2 fL High 79 - 98 fL [place] Monocytes (Bld) [#/Vol] 1.0 10*3/uL High 0 - 0.8 10*3/uL [place] Monocytes/100 WBC (Bld) 7.9 % 2 - 10 % [place] Platelet mean volume (Bld) [Entitic vol] 8.1 fL 7.4 - 10.4 fL [place] Platelets (Bld) [#/Vol] 283 10*3/uL 140 - 440 10*3/uL [place] RBC (Bld) [#/Vol] 3.67 10*6/uL Low 3.8 - 5.2 10*6/uL [place] WBC (Bld) [#/Vol] 12.5 10*3/uL High 3.6 - 10.7 10*3/uL [place] Test Performed by [facility], [facility] [place] [address] [place] Drug screen multi urineon Amphetamines, urine Negative [place] Barbiturates, Ur Negative [place] Benzodiazepine Ur Qual Negative [place], [place] Cocaine Metabolites, Ur Negative [place], [place] Methadone, Urine Negative [place] Opiates, Urine Positive [place] Oxycodone Screen, Ur Negative [place] PCP, Urine Negative [place] Comment on above: The expected value [...] confirmation under separate order. Test Performed by [facility], [facility] [place] [address] [place] Drugs of Abuseon 04-16-2020 Opiates, Ur Positive Normal [facility] Comment on above: Performed By: #### D RGA4 #### [facility] [address] [place] [address] Phencyclidine (PCP), Ur Negative Normal [facility] Comment on above: Result Comment: The expected [...] order. Performed By: #### D RGA4 #### [facility] [address] [place], [place] Methadone, Ur Negative Normal [facility] Comment on above: Performed By: #### D RGA4 #### [address] [place] [address] Benzodiazepines, Ur Negative Normal [facility] Comment on above: Performed By: #### D RGA4 #### [address] [address] [address] [facility] [place], [place] Cocaine, Ur Negative Normal [facility] Comment on above: Performed By: #### D RGA4 #### [facility] [address] [place] [address] Barbiturates, Ur Negative Normal [facility] Comment on above: Performed By: #### D RGA4 #### [facility] [address] [place] [address] Amphetamines, Ur Negative Normal [facility] Comment on above: Performed By: #### D RGA4 #### [facility] [address] [place] [address] Oxycodone/Oxymorphine,U r Negative Normal [facility] Comment on above: Performed By: #### D RGA4 #### [facility] [address] [place] [address] Ethanolon 04-16-2020 Ethanol Lvl <0.010 0 - 0.01 g/dL [place] Comment on above: NOTE: This result is for medical treatment only. Analysis performed using non-forensic procedures. Ethanol Serum/Plasmaon 04-16 Ethanol-Serum/Plasma < 0.010 Normal 0.000-0.010 [facility] Comment on above: Result Comment: NOTE : This result is for medical treatment only. Analysis performed using non-forensic procedures. Performed By: #### E TOH4, BMP3M, LACT3, HEMDF #### [address] [address] [place], [place] Hemogram w/ Autodiffon 04-16 Abs Baso Cnt 0.1 10*3/uL Normal 0.0-0.2 [facility] Comment on above: Performed By: #### E TOH4, BMP3M, LACT3, HEMDF #### [address] [address] [address] [place], [place] Abs Neutrophile Cnt 10.3 10*3/uL High 1.8-7.0 [facility] Comment on above: Performed By: #### E TOH4, BMP3M, LACT3, HEMDF #### [address] Basophils/100 WBC (Bld) 0.4 % Normal 0.0-2.0 [facility] Comment on above: Performed By: #### E TOH4, BMP3M, LACT3, HEMDF #### [address] Eosinophils (Bld) [#/Vol] 0.0 10*3/uL Normal 0.0-0.5 [facility] Comment on above: Performed By: #### E TOH4, BMP3M, LACT3, HEMDF #### [address] [place], [place] Eosinophils/100 WBC (Bld) 0.4 % Low 1.0-6.0 [facility] Comment on above: Performed By: #### E TOH4, BMP3M, LACT3, HEMDF #### [address] Erythrocyte distribution width (RBC) [Ratio] 14.6 % High 11.5-14.5 [facility] Comment on above: Performed By: #### E TOH4, BMP3M, LACT3, HEMDF #### [address] Granulocytes/100 WBC (Bld) 82.2 % High 40.0-80.0 [facility] Comment on above: Performed By: #### E TOH4, BMP3M, LACT3, HEMDF #### [address] [place] Hematocrit (Bld) [Volume fraction] 36.4 % Normal 35.0-47.0 [facility] Comment on above: Performed By: #### E TOH4, BMP3M, LACT3, HEMDF #### [address] Hemoglobin (Bld) [Mass/Vol] 12.1 g/dL Normal 11.7-16.0 [facility] Comment on above: Performed By: #### E TOH4, BMP3M, LACT3, HEMDF #### [address] Lymphocytes (Bld) [#/Vol] 1.1 10*3/uL Normal 1.0-4.3 [facility] Comment on above: Performed By: #### E TOH4, BMP3M, LACT3, HEMDF #### [address] Lymphocytes/100 WBC (Bld) 9.1 % Low 20.0-40.0 [facility] Comment on above: Performed By: #### E TOH4, BMP3M, LACT3, HEMDF #### [address] [place] MCH (RBC) [Entitic mass] 33.0 pg Normal 26.0-34.0 [facility] Comment on above: Performed By: #### E TOH4, BMP3M, LACT3, HEMDF #### [address] MCHC (RBC) [Mass/Vol] 33.2 % Normal 32.0-36.0 [facility] Comment on above: Performed By: #### E TOH4, BMP3M, LACT3, HEMDF #### [address] MCV (RBC) [Entitic vol] 99.2 fL High 79.0-98.0 [facility] Comment on above: Performed By: #### E TOH4, BMP3M, LACT3, HEMDF #### [address] Monocytes (Bld) [#/Vol] 1.0 10*3/uL High 0.0-0.8 [facility] Comment on above: Performed By: #### E TOH4, BMP3M, LACT3, HEMDF #### [address] Monocytes/100 WBC (Bld) 7.9 % Normal 2.0-10.0 [facility] Comment on above: Performed By: #### E TOH4, BMP3M, LACT3, HEMDF #### [address] Platelet mean volume (Bld) [Entitic vol] 8.1 fL Normal 7.4-10.4 [facility] Comment on above: Performed By: #### E TOH4, BMP3M, LACT3, HEMDF #### [address] Platelets (Bld) [#/Vol] 283 10*3/uL Normal 140-440 [facility] Comment on above: Performed By: #### E TOH4, BMP3M, LACT3, HEMDF #### [address] RBC (Bld) [#/Vol] 3.67 10*6/uL Low 3.80-5.20 [facility] Comment on above: Performed By: #### E TOH4, BMP3M, LACT3, HEMDF #### [address], [place] WBC (Bld) [#/Vol] 12.5 10*3/uL High 3.6-10.7 [facility] Comment on above: Performed By: #### E TOH4, BMP3M, LACT3, HEMDF #### [facility] [address] [place] [address] Lactic Acidon 04-16-2020 Lactate [Moles/Vol] 2.7 mmol/L Critically high 0.7-2.0 [facility] Comment on above: Performed By: #### L ACT3 #### [address] [address] [place], [place] Lactate [Moles/Vol] 3.0 mmol/L Critically high 0.7-2.0 [facility] Comment on above: Performed By: #### E TOH4, BMP3M, LACT3, HEMDF #### [address] [address] [place], [place] Lactic Acid, Plasmaon 2019 Interpretation and review of laboratory results Abnormal [place] Lactate [Moles/Vol] 2.7 mmol/L Critically high 0.7 - 2 mmol/L [place] Test Performed by [facility], [address] [place] [id number] [place] [address] Interpretation and review of laboratory results Abnormal [place] Lactate [Moles/Vol] 3 mmol/L Critically high 0.7 - 2 mmol/L [place] Test Performed by [id number] [place] [address], [place] Otheron 04-16-2020 Test Performed by [id number] [place] [address] .GFRon 09-01-2019 GFR Non- >60 Normal [facility] ([place]) Comment on above: Result Comment: GFR Population [...] #### C BC, BMP, GFR, DIFF, MORPH ####[address] [address] GFR >60 Normal [facility] ([place]) Comment on above: Result Comment: GFR Population [...] #### C BC, BMP, GFR, DIFF, MORPH ####[address] [address] .Manual Diffon 09-01-2019 Bands 1.0 % Normal 0.0-5.0 [facility] ([place]) Comment on above: Performed By: #### C BC, BMP, GFR, DIFF, MORPH ####[address] [address] Basophil %, Manual 1.0 % Normal 0.0-2.5 [facility] ([place]) Comment on above: Performed By: #### C BC, BMP, GFR, DIFF, MORPH ####[place] [address] Basophil, Abs Manual 0.15 10 3/mcL Normal 0.00-0.27 [facility] ([place]) Comment on above: Performed By: #### C BC, BMP, GFR, DIFF, MORPH ####[address] [address] Cells Counted 100 Normal [facility] ([place]) Comment on above: Performed By: #### C BC, BMP, GFR, DIFF, MORPH ####[address] [address] Eosinophil %, Manual 2.0 % Normal 0.0-6.0 [facility] ([place]) Comment on above: Performed By: #### C BC, BMP, GFR, DIFF, MORPH ####[address] [address] Eosinophil, Abs Manual 0.30 10 3/mcL Normal 0.00-0.65 [facility] ([place]) Comment on above: Performed By: #### C BC, BMP, GFR, DIFF, MORPH ####[address] [address] Lymphocyte %, Manual 7.0 % Low 20.0-40.0 [facility] ([place]) Comment on above: Performed By: #### C BC, BMP, GFR, DIFF, MORPH ####[address] [address] Lymphocyte, Abs Manual 1.04 10 3/mcL Normal 0.90-4.32 [facility] ([place]) Comment on above: Performed By: #### C BC, BMP, GFR, DIFF, MORPH ####[address] [address] Monocyte %, Manual 2.0 % Normal 2.0-13.0 [facility] ([place]) Comment on above: Performed By: #### C BC, BMP, GFR, DIFF, MORPH ####[address] [address] Monocyte, Abs Manual 0.30 10 3/mcL Normal 0.09-1.40 [facility] ([place]) Comment on above: Performed By: #### C BC, BMP, GFR, DIFF, MORPH ####[address] [address] Neutrophil %, Manual 87.0 % High 50.0-75.0 [facility] ([place]) Comment on above: Performed By: #### C BC, BMP, GFR, DIFF, MORPH ####[place] [address] Neutrophil, Abs Manual 13.11 10 3/mcL High 2.25-8.10 [facility] ([place]) Comment on above: Performed By: #### C BC, BMP, GFR, DIFF, MORPH ####[place] [address] .Morphon 09-01-2019 Platelets (Bld) [#/Vol] Slt Increased Normal [facility] ([place]) Comment on above: Performed By: #### C BC, BMP, GFR, DIFF, MORPH ####[place] [address] RBC morphology finding Nom (Bld) Normal Normal [facility] ([place]) Comment on above: Performed By: #### C BC, BMP, GFR, DIFF, MORPH ####[address] 09-01-2019 Calcium [Mass/Vol] 8.6 mg/dL Normal 8.4-10.1 [facility] ([place]) Comment on above: Performed By: #### C BC, BMP, GFR, DIFF, MORPH ####[place] [address] CO2 [Moles/Vol] 24 mmol/L Normal 22-32 [facility] ([place]) Comment on above: Performed By: #### C BC, BMP, GFR, DIFF, MORPH ####[place] [address] Creatinine [Mass/Vol] 0.46 mg/dL Low 0.50-1.20 [facility] ([place]) Comment on above: Performed By: #### C BC, BMP, GFR, DIFF, MORPH ####[place] [address] Electrolyte Balance 10.0 mEq/L Normal 4.0-15.0 [facility] ([place]) Comment on above: Performed By: #### C BC, BMP, GFR, DIFF, MORPH ####[address] [address] Glucose [Mass/Vol] 106 mg/dL Normal 82-115 [facility] ([place]) Comment on above: Performed By: #### C BC, BMP, GFR, DIFF, MORPH ####[address] [address] Potassium [Moles/Vol] 3.9 mmol/L Normal 3.5-5.0 [facility] ([place]) Comment on above: Performed By: #### C BC, BMP, GFR, DIFF, MORPH ####[address] [address] Urea nitrogen [Mass/Vol] 9.0 mg/dL Normal 8.0-22.0 [facility] ([place]) Comment on above: Performed By: #### C BC, BMP, GFR, DIFF, MORPH ####[place] [address] Urea nitrogen/Creatinine [Mass ratio] 19.6 ratio Normal 10.0-22.0 [facility] ([place]) Comment on above: Performed By: #### C BC, BMP, GFR, DIFF, MORPH ####[address] [address] Chloride [Moles/Vol] 101 mmol/L Normal 98-110 [facility] ([place]) Comment on above: Performed By: #### C BC, BMP, GFR, DIFF, MORPH ####[address] [address] Sodium [Moles/Vol] 135 mmol/L Low 136-145 [facility] ([place]) Comment on above: Performed By: #### C BC, BMP, GFR, DIFF, MORPH ####[address] [address] CBCon 09-01-2019 Erythrocyte distribution width (RBC) [Ratio] 14.7 % Normal 11.5-15.5 [facility] ([place]) Comment on above: Performed By: #### C BC, BMP, GFR, DIFF, MORPH ####[address] [address] Hematocrit (Bld) [Volume fraction] 29.6 % Low 34.0-46.0 [facility] ([place]) Comment on above: Performed By: #### C BC, BMP, GFR, DIFF, MORPH ####[address] [address] Hemoglobin (Bld) [Mass/Vol] 9.9 G/dL Low 12.0-16.0 [facility] ([place]) Comment on above: Performed By: #### C BC, BMP, GFR, DIFF, MORPH ####[address] [address] MCH (RBC) [Entitic mass] 32.8 pg Normal 27.0-33.0 [facility] ([place]) Comment on above: Performed By: #### C BC, BMP, GFR, DIFF, MORPH ####[address] [address] MCHC (RBC) [Mass/Vol] 33.5 G/dL Normal 32.0-36.0 [facility] ([place]) Comment on above: Performed By: #### C BC, BMP, GFR, DIFF, MORPH ####[address] [address] MCV (RBC) [Entitic vol] 97.9 fL Normal 80.0-99.0 [facility] ([place]) Comment on above: Performed By: #### C BC, BMP, GFR, DIFF, MORPH ####[address] [address] Platelet mean volume (Bld) [Entitic vol] 7.0 fL Normal 6.6-10.5 [facility] ([place]) Comment on above: Performed By: #### C BC, BMP, GFR, DIFF, MORPH ####[address] [address] Platelets (Bld) [#/Vol] 481 10 3/mcL High 150-450 [facility] ([place]) Comment on above: Performed By: #### C BC, BMP, GFR, DIFF, MORPH ####[address] [address] RBC (Bld) [#/Vol] 3.03 10 6/mcL Low 4.10-5.30 [facility] ([place]) Comment on above: Performed By: #### C BC, BMP, GFR, DIFF, MORPH ####[address] [address] WBC (Bld) [#/Vol] 14.90 10 3/mcL High 4.50-10.80 [facility] ([place]) Comment on above: Performed By: #### C BC, BMP, GFR, DIFF, MORPH ####[address] [address] .Auto Diffon 08-31-2019 Ammonia (P) [Mass/Vol] 1.40 10 3/mcL Normal 0.09-1.40 [facility] ([place]) Comment on above: Performed By: #### C BC, ADIFF, ANEU, BMP, GFR ####[address] [address] Basophils (Bld) [#/Vol] 0.10 10 3/mcL Normal 0.00-0.27 [facility] ([place]) Comment on above: Performed By: #### C BC, ADIFF, ANEU, BMP, GFR ####[address] [address] Basophils/100 WBC (Bld) 0.5 % Normal 0.0-2.5 [facility] ([place]) Comment on above: Performed By: #### C BC, ADIFF, ANEU, BMP, GFR ####[address] [address] Eosinophils (Bld) [#/Vol] 0.50 10 3/mcL Normal 0.00-0.65 [facility] ([place]) Comment on above: Performed By: #### C BC, ADIFF, ANEU, BMP, GFR ####[address] [address] Eosinophils/100 WBC (Bld) 3.3 % Normal 0.0-6.0 [facility] ([place]) Comment on above: Performed By: #### C BC, ADIFF, ANEU, BMP, GFR ####[address] [address] Lymphocytes (Bld) [#/Vol] 1.30 10 3/mcL Normal 0.90-4.32 [facility] ([place]) Comment on above: Performed By: #### C BC, ADIFF, ANEU, BMP, GFR ####[address] [address] Lymphocytes/100 WBC (Bld) 8.1 % Low 20.0-40.0 [facility] ([place]) Comment on above: Performed By: #### C BC, ADIFF, ANEU, BMP, GFR ####[address] [address] Monocytes/100 WBC (Bld) 9.0 % Normal 2.0-13.0 [facility] ([place]) Comment on above: Performed By: #### C BC, ADIFF, ANEU, BMP, GFR ####[address] [address] Neutrophils/100 WBC (Bld) 79.1 % High 50.0-75.0 [facility] ([place]) Comment on above: Performed By: #### C BC, ADIFF, ANEU, BMP, GFR ####[address] [address] .GFRon 08-31-2019 GFR Non- >60 Normal [facility] ([place]) Comment on above: Result Comment: GFR Population [...] #### C BC, ADIFF, ANEU, BMP, GFR ####[address] [address] GFR >60 Normal [facility] ([place]) Comment on above: Result Comment: GFR Population [...] #### C BC, ADIFF, ANEU, BMP, GFR ####[address] [address] .NEUABSon 08-31-2019 Neutrophils (Bld) [#/Vol] 12.50 10 3/mcL High 2.25-8.10 [facility] ([place]) Comment on above: Performed By: #### C BC, ADIFF, ANEU, BMP, GFR ####[place] [address] BMPon 08-31-2019 Creatinine [Mass/Vol] 0.51 mg/dL Normal 0.50-1.20 [facility] ([place]) Comment on above: Performed By: #### C BC, ADIFF, ANEU, BMP, GFR ####[address] [address] Urea nitrogen/Creatinine [Mass ratio] 19.6 ratio Normal 10.0-22.0 [facility] ([place]) Comment on above: Performed By: #### C BC, ADIFF, ANEU, BMP, GFR ####[address] [address] Calcium [Mass/Vol] 8.6 mg/dL Normal 8.4-10.1 [facility] ([place]) Comment on above: Performed By: #### C BC, ADIFF, ANEU, BMP, GFR ####[place] [address] Chloride [Moles/Vol] 101 mmol/L Normal 98-110 [facility] ([place]) Comment on above: Performed By: #### C BC, ADIFF, ANEU, BMP, GFR ####[place] [address] CO2 [Moles/Vol] 25 mmol/L Normal 22-32 [facility] ([place]) Comment on above: Performed By: #### C BC, ADIFF, ANEU, BMP, GFR ####[address] [address] Electrolyte Balance 9.0 mEq/L Normal 4.0-15.0 [facility] ([place]) Comment on above: Performed By: #### C BC, ADIFF, ANEU, BMP, GFR ####[place] [address] Glucose [Mass/Vol] 112 mg/dL Normal 82-115 [facility] ([place]) Comment on above: Performed By: #### C BC, ADIFF, ANEU, BMP, GFR ####[place] [address] Potassium [Moles/Vol] 4.0 mmol/L Normal 3.5-5.0 [facility] ([place]) Comment on above: Performed By: #### C BC, ADIFF, ANEU, BMP, GFR ####[place] [address] Sodium [Moles/Vol] 135 mmol/L Low 136-145 [facility] ([place]) Comment on above: Performed By: #### C BC, ADIFF, ANEU, BMP, GFR ####[place] [address] Urea nitrogen [Mass/Vol] 10.0 mg/dL Normal 8.0-22.0 [facility] ([place]) Comment on above: Performed By: #### C BC, ADIFF, ANEU, BMP, GFR ####[address] [address] CBCon 08-31-2019 Erythrocyte distribution width (RBC) [Ratio] 14.7 % Normal 11.5-15.5 [facility] ([place]) Comment on above: Performed By: #### C BC, ADIFF, ANEU, BMP, GFR ####[address] [address] Hematocrit (Bld) [Volume fraction] 29.1 % Low 34.0-46.0 [facility] ([place]) Comment on above: Performed By: #### C BC, ADIFF, ANEU, BMP, GFR ####[address] [address] Hemoglobin (Bld) [Mass/Vol] 9.5 G/dL Low 12.0-16.0 [facility] ([place]) Comment on above: Performed By: #### C BC, ADIFF, ANEU, BMP, GFR ####[place] [id number] MCH (RBC) [Entitic mass] 32.5 pg Normal 27.0-33.0 [facility] ([place]) Comment on above: Performed By: #### C BC, ADIFF, ANEU, BMP, GFR ####[address] [address] MCHC (RBC) [Mass/Vol] 32.7 G/dL Normal 32.0-36.0 [facility] ([place]) Comment on above: Performed By: #### C BC, ADIFF, ANEU, BMP, GFR ####[place] [address] MCV (RBC) [Entitic vol] 99.3 fL High 80.0-99.0 [facility] ([place]) Comment on above: Performed By: #### C BC, ADIFF, ANEU, BMP, GFR ####[address] [address] Platelet mean volume (Bld) [Entitic vol] 7.3 fL Normal 6.6-10.5 [facility] ([place]) Comment on above: Performed By: #### C BC, ADIFF, ANEU, BMP, GFR ####[address] [address] Platelets (Bld) [#/Vol] 485 10 3/mcL High 150-450 [facility] ([place]) Comment on above: Performed By: #### C BC, ADIFF, ANEU, BMP, GFR ####[address] [address] RBC (Bld) [#/Vol] 2.93 10 6/mcL Low 4.10-5.30 [facility] ([place]) Comment on above: Performed By: #### C BC, ADIFF, ANEU, BMP, GFR ####[address] [address] WBC (Bld) [#/Vol] 15.80 10 3/mcL High 4.50-10.80 [facility] ([place]) Comment on above: Performed By: #### C BC, ADIFF, ANEU, BMP, GFR ####[address] [address] .GFRon 08-30-2019 GFR >60 Normal [facility] ([place]) Comment on above: Result Comment: GFR Population [...] #### C BC, BMP, GFR, DIFF, MORPH ####[address] [address] GFR Non- >60 Normal [facility] ([place]) Comment on above: Result Comment: GFR Population [...] #### C BC, BMP, GFR, DIFF, MORPH ####[place] [address] .Manual Diffon 08-30-2019 Bands 1.0 % Normal 0.0-5.0 [facility] ([place]) Comment on above: Performed By: #### C BC, BMP, GFR, DIFF, MORPH ####[place] [address] Basophil %, Manual 0.0 % Normal 0.0-2.5 [facility] ([place]) Comment on above: Performed By: #### C BC, BMP, GFR, DIFF, MORPH ####[place] [address] Basophil, Abs Manual 0.00 10 3/mcL Normal 0.00-0.27 [facility] ([place]) Comment on above: Performed By: #### C BC, BMP, GFR, DIFF, MORPH ####[place] [address] Cells Counted 100 Normal [facility] ([place]) Comment on above: Performed By: #### C BC, BMP, GFR, DIFF, MORPH ####[place] [address] Eosinophil %, Manual 4.0 % Normal 0.0-6.0 [facility] ([place]) Comment on above: Performed By: #### C BC, BMP, GFR, DIFF, MORPH ####[place] [address] Eosinophil, Abs Manual 0.64 10 3/mcL Normal 0.00-0.65 [facility] ([place]) Comment on above: Performed By: #### C BC, BMP, GFR, DIFF, MORPH ####[place] [address] Lymphocyte %, Manual 15.0 % Low 20.0-40.0 [facility] ([place]) Comment on above: Performed By: #### C BC, BMP, GFR, DIFF, MORPH ####[address] [address] Lymphocyte, Abs Manual 2.38 10 3/mcL Normal 0.90-4.32 [facility] ([place]) Comment on above: Performed By: #### C BC, BMP, GFR, DIFF, MORPH ####[place] [address] Metamyelocytes/100 WBC (Bld) 1.0 % Normal [facility] ([place]) Comment on above: Performed By: #### C BC, BMP, GFR, DIFF, MORPH ####[address] [address] Monocyte %, Manual 9.0 % Normal 2.0-13.0 [facility] ([place]) Comment on above: Performed By: #### C BC, BMP, GFR, DIFF, MORPH ####[place] [address] Monocyte, Abs Manual 1.43 10 3/mcL High 0.09-1.40 [facility] ([place]) Comment on above: Performed By: #### C BC, BMP, GFR, DIFF, MORPH ####[address] [address] Neutrophil %, Manual 70.0 % Normal 50.0-75.0 [facility] ([place]) Comment on above: Performed By: #### C BC, BMP, GFR, DIFF, MORPH ####[address] [address] Neutrophil, Abs Manual 11.29 10 3/mcL High 2.25-8.10 [facility] ([place]) Comment on above: Performed By: #### C BC, BMP, GFR, DIFF, MORPH ####[place] [address] .Morphon 08-30-2019 Platelets (Bld) [#/Vol] Slt Increased Normal [facility] ([place]) Comment on above: Performed By: #### C BC, BMP, GFR, DIFF, MORPH ####[address] [address] Polychrom Slight Normal [facility] ([place]) Comment on above: Performed By: #### C BC, BMP, GFR, DIFF, MORPH ####[address] [address] BMPon 08-30-2019 Creatinine [Mass/Vol] 0.47 mg/dL Low 0.50-1.20 [facility] ([place]) Comment on above: Performed By: #### C BC, BMP, GFR, DIFF, MORPH ####[place] [address] Urea nitrogen/Creatinine [Mass ratio] 19.1 ratio Normal 10.0-22.0 [facility] ([place]) Comment on above: Performed By: #### C BC, BMP, GFR, DIFF, MORPH ####[place] [address] Calcium [Mass/Vol] 8.4 mg/dL Normal 8.4-10.1 [facility] ([place]) Comment on above: Performed By: #### C BC, BMP, GFR, DIFF, MORPH ####[place] [address] Chloride [Moles/Vol] 100 mmol/L Normal 98-110 [facility] ([place]) Comment on above: Performed By: #### C BC, BMP, GFR, DIFF, MORPH ####[place] [address] CO2 [Moles/Vol] 26 mmol/L Normal 22-32 [facility] ([place]) Comment on above: Performed By: #### C BC, BMP, GFR, DIFF, MORPH ####[place] [address] Electrolyte Balance 8.0 mEq/L Normal 4.0-15.0 [facility] ([place]) Comment on above: Performed By: #### C BC, BMP, GFR, DIFF, MORPH ####[address] [address] Glucose [Mass/Vol] 103 mg/dL Normal 82-115 [facility] ([place]) Comment on above: Performed By: #### C BC, BMP, GFR, DIFF, MORPH ####[place] [address] Potassium [Moles/Vol] 3.3 mmol/L Low 3.5-5.0 [facility] ([place]) Comment on above: Performed By: #### C BC, BMP, GFR, DIFF, MORPH ####[place] [address] Sodium [Moles/Vol] 134 mmol/L Low 136-145 [facility] ([place]) Comment on above: Performed By: #### C BC, BMP, GFR, DIFF, MORPH ####[place] [address] Urea nitrogen [Mass/Vol] 9.0 mg/dL Normal 8.0-22.0 [facility] ([place]) Comment on above: Performed By: #### C BC, BMP, GFR, DIFF, MORPH ####[place] [address] CBCon 08-30-2019 Erythrocyte distribution width (RBC) [Ratio] 14.7 % Normal 11.5-15.5 [facility] ([place]) Comment on above: Performed By: #### C BC, BMP, GFR, DIFF, MORPH ####[place] [address] Hematocrit (Bld) [Volume fraction] 29.8 % Low 34.0-46.0 [facility] ([place]) Comment on above: Performed By: #### C BC, BMP, GFR, DIFF, MORPH ####[place] [address] Hemoglobin (Bld) [Mass/Vol] 9.8 G/dL Low 12.0-16.0 [facility] ([place]) Comment on above: Performed By: #### C BC, BMP, GFR, DIFF, MORPH ####[place] [address] MCH (RBC) [Entitic mass] 32.7 pg Normal 27.0-33.0 [facility] ([place]) Comment on above: Performed By: #### C BC, BMP, GFR, DIFF, MORPH ####[address] [address] MCHC (RBC) [Mass/Vol] 33.1 G/dL Normal 32.0-36.0 [facility] ([place]) Comment on above: Performed By: #### C BC, BMP, GFR, DIFF, MORPH ####[address] [address] MCV (RBC) [Entitic vol] 98.7 fL Normal 80.0-99.0 [facility] ([place]) Comment on above: Performed By: #### C BC, BMP, GFR, DIFF, MORPH ####[address] [address] Platelet mean volume (Bld) [Entitic vol] 7.1 fL Normal 6.6-10.5 [facility] ([place]) Comment on above: Performed By: #### C BC, BMP, GFR, DIFF, MORPH ####[place] [id number] Platelets (Bld) [#/Vol] 504 10 3/mcL High 150-450 [facility] ([place]) Comment on above: Performed By: #### C BC, BMP, GFR, DIFF, MORPH ####[place] [address] RBC (Bld) [#/Vol] 3.02 10 6/mcL Low 4.10-5.30 [facility] ([place]) Comment on above: Performed By: #### C BC, BMP, GFR, DIFF, MORPH ####[place] [id number] WBC (Bld) [#/Vol] 15.90 10 3/mcL High 4.50-10.80 [facility] ([place]) Comment on above: Performed By: #### C BC, BMP, GFR, DIFF, MORPH ####[place] [id number] .GFRon 08-29-2019 GFR Non- >60 Normal [facility] ([place]) Comment on above: Result Comment: GFR Population [...] #### C BC, BMP, GFR, DIFF, MORPH ####[place] [address] GFR >60 Normal [facility] ([place]) Comment on above: Result Comment: GFR Population [...] #### C BC, BMP, GFR, DIFF, MORPH ####[place] [address] .Manual Diffon 08-29-2019 Basophil %, Manual 1.0 % Normal 0.0-2.5 [facility] ([place]) Comment on above: Performed By: #### C BC, BMP, GFR, DIFF, MORPH ####[place] [address] Basophil, Abs Manual 0.18 10 3/mcL Normal 0.00-0.27 [facility] ([place]) Comment on above: Performed By: #### C BC, BMP, GFR, DIFF, MORPH ####[place] [address] Cells Counted 100 Normal [facility] ([place]) Comment on above: Performed By: #### C BC, BMP, GFR, DIFF, MORPH ####[address] [address] Eosinophil %, Manual 0.0 % Normal 0.0-6.0 [facility] ([place]) Comment on above: Performed By: #### C BC, BMP, GFR, DIFF, MORPH ####[address] [address] Eosinophil, Abs Manual 0.00 10 3/mcL Normal 0.00-0.65 [facility] ([place]) Comment on above: Performed By: #### C BC, BMP, GFR, DIFF, MORPH ####[place] [address] Lymphocyte %, Manual 7.0 % Low 20.0-40.0 [facility] ([place]) Comment on above: Performed By: #### C BC, BMP, GFR, DIFF, MORPH ####[place] [address] Lymphocyte, Abs Manual 1.29 10 3/mcL Normal 0.90-4.32 [facility] ([place]) Comment on above: Performed By: #### C BC, BMP, GFR, DIFF, MORPH ####[place] [address] Monocyte %, Manual 5.0 % Normal 2.0-13.0 [facility] ([place]) Comment on above: Performed By: #### C BC, BMP, GFR, DIFF, MORPH ####[address] [address] Monocyte, Abs Manual 0.92 10 3/mcL Normal 0.09-1.40 [facility] ([place]) Comment on above: Performed By: #### C BC, BMP, GFR, DIFF, MORPH ####[place] [address] Myelocyte 2.0 % Normal [facility] ([place]) Comment on above: Performed By: #### C BC, BMP, GFR, DIFF, MORPH ####[place] [address] Neutrophil %, Manual 85.0 % High 50.0-75.0 [facility] ([place]) Comment on above: Performed By: #### C BC, BMP, GFR, DIFF, MORPH ####[place] [address] Neutrophil, Abs Manual 15.64 10 3/mcL High 2.25-8.10 [facility] ([place]) Comment on above: Performed By: #### C BC, BMP, GFR, DIFF, MORPH ####[place] [address] .Morphon 08-29-2019 Platelets (Bld) [#/Vol] Normal Normal [facility] ([place]) Comment on above: Performed By: #### C BC, BMP, GFR, DIFF, MORPH ####[place] [address] Polychrom Slight Normal [facility] ([place]) Comment on above: Performed By: #### C BC, BMP, GFR, DIFF, MORPH ####[place] [address] BMPon 08-29-2019 Calcium [Mass/Vol] 7.8 mg/dL Low 8.4-10.1 [facility] ([place]) Comment on above: Performed By: #### C BC, BMP, GFR, DIFF, MORPH ####[place] [address] Chloride [Moles/Vol] 96 mmol/L Low 98-110 [facility] ([place]) Comment on above: Performed By: #### C BC, BMP, GFR, DIFF, MORPH ####[place] [address] CO2 [Moles/Vol] 26 mmol/L Normal 22-32 [facility] ([place]) Comment on above: Performed By: #### C BC, BMP, GFR, DIFF, MORPH ####[place] [address] Creatinine [Mass/Vol] 0.44 mg/dL Low 0.50-1.20 [facility] ([place]) Comment on above: Performed By: #### C BC, BMP, GFR, DIFF, MORPH ####[address] [address] Electrolyte Balance 9.0 mEq/L Normal 4.0-15.0 [facility] ([place]) Comment on above: Performed By: #### C BC, BMP, GFR, DIFF, MORPH ####[address] [address] Glucose [Mass/Vol] 146 mg/dL High 82-115 [facility] ([place]) Comment on above: Performed By: #### C BC, BMP, GFR, DIFF, MORPH ####[address] [address] Potassium [Moles/Vol] 3.4 mmol/L Low 3.5-5.0 [facility] ([place]) Comment on above: Performed By: #### C BC, BMP, GFR, DIFF, MORPH ####[place] [address] Sodium [Moles/Vol] 131 mmol/L Low 136-145 [facility] ([place]) Comment on above: Performed By: #### C BC, BMP, GFR, DIFF, MORPH ####[place] [address] Urea nitrogen [Mass/Vol] 9.0 mg/dL Normal 8.0-22.0 [facility] ([place]) Comment on above: Performed By: #### C BC, BMP, GFR, DIFF, MORPH ####[place] [address] Urea nitrogen/Creatinine [Mass ratio] 20.5 ratio Normal 10.0-22.0 [facility] ([place]) Comment on above: Performed By: #### C BC, BMP, GFR, DIFF, MORPH ####[place] [address] CBCon 08-29-2019 Erythrocyte distribution width (RBC) [Ratio] 14.4 % Normal 11.5-15.5 [facility] ([place]) Comment on above: Performed By: #### C BC, BMP, GFR, DIFF, MORPH ####[address] [address] Hematocrit (Bld) [Volume fraction] 29.2 % Low 34.0-46.0 [facility] ([place]) Comment on above: Performed By: #### C BC, BMP, GFR, DIFF, MORPH ####[place] [address] Hemoglobin (Bld) [Mass/Vol] 9.7 G/dL Low 12.0-16.0 [facility] ([place]) Comment on above: Performed By: #### C BC, BMP, GFR, DIFF, MORPH ####[place] [address] MCH (RBC) [Entitic mass] 32.5 pg Normal 27.0-33.0 [facility] ([place]) Comment on above: Performed By: #### C BC, BMP, GFR, DIFF, MORPH ####[place] [address] MCHC (RBC) [Mass/Vol] 33.2 G/dL Normal 32.0-36.0 [facility] ([place]) Comment on above: Performed By: #### C BC, BMP, GFR, DIFF, MORPH ####[place] [address] MCV (RBC) [Entitic vol] 97.8 fL Normal 80.0-99.0 [facility] ([place]) Comment on above: Performed By: #### C BC, BMP, GFR, DIFF, MORPH ####[place] [address] Platelet mean volume (Bld) [Entitic vol] 6.7 fL Normal 6.6-10.5 [facility] ([place]) Comment on above: Performed By: #### C BC, BMP, GFR, DIFF, MORPH ####[place] [id number] Platelets (Bld) [#/Vol] 434 10 3/mcL Normal 150-450 [facility] ([place]) Comment on above: Performed By: #### C BC, BMP, GFR, DIFF, MORPH ####[place] [address] RBC (Bld) [#/Vol] 2.98 10 6/mcL Low 4.10-5.30 [facility] ([place]) Comment on above: Performed By: #### C BC, BMP, GFR, DIFF, MORPH ####[address] [address] WBC (Bld) [#/Vol] 18.40 10 3/mcL High 4.50-10.80 [facility] ([place]) Comment on above: Performed By: #### C BC, BMP, GFR, DIFF, MORPH ####[address] [address] .Auto Diffon 08-28-2019 Ammonia (P) [Mass/Vol] 2.30 10 3/mcL High 0.09-1.40 [facility] ([place]) Comment on above: Performed By: #### M G, CMP, GFR, CBC, ADIFF, ANEU ####[address] [address] Basophils (Bld) [#/Vol] 0.10 10 3/mcL Normal 0.00-0.27 [facility] ([place]) Comment on above: Performed By: #### M G, CMP, GFR, CBC, ADIFF, ANEU ####[address] [address] Basophils/100 WBC (Bld) 0.4 % Normal 0.0-2.5 [facility] ([place]) Comment on above: Performed By: #### M G, CMP, GFR, CBC, ADIFF, ANEU ####[address] [address] Eosinophils (Bld) [#/Vol] 0.50 10 3/mcL Normal 0.00-0.65 [facility] ([place]) Comment on above: Performed By: #### M G, CMP, GFR, CBC, ADIFF, ANEU ####[address] [address] Eosinophils/100 WBC (Bld) 2.8 % Normal 0.0-6.0 [facility] ([place]) Comment on above: Performed By: #### M G, CMP, GFR, CBC, ADIFF, ANEU ####[address] [address] Lymphocytes (Bld) [#/Vol] 1.50 10 3/mcL Normal 0.90-4.32 [facility] ([place]) Comment on above: Performed By: #### M G, CMP, GFR, CBC, ADIFF, ANEU ####[address] [address] Lymphocytes/100 WBC (Bld) 8.2 % Low 20.0-40.0 [facility] ([place]) Comment on above: Performed By: #### M G, CMP, GFR, CBC, ADIFF, ANEU ####[address] [address] Monocytes/100 WBC (Bld) 13.1 % High 2.0-13.0 [facility] ([place]) Comment on above: Performed By: #### M G, CMP, GFR, CBC, ADIFF, ANEU ####[address] [address] Neutrophils/100 WBC (Bld) 75.5 % High 50.0-75.0 [facility] ([place]) Comment on above: Performed By: #### M G, CMP, GFR, CBC, ADIFF, ANEU ####[address] [address] .GFRon 08-28-2019 GFR >60 Normal [facility] ([place]) Comment on above: Result Comment: GFR Population [...] meters Performed By: #### G FR, BMP ####[address] [address] GFR Non- >60 Normal [facility] ([place]) Comment on above: Result Comment: GFR Population [...] meters Performed By: #### G FR, BMP ####[place] [address] .NEUABSon 08-28-2019 Neutrophils (Bld) [#/Vol] 13.50 10 3/mcL High 2.25-8.10 [facility] ([place]) Comment on above: Performed By: #### M G, CMP, GFR, CBC, ADIFF, ANEU ####[place] [address] BMPon 08-28-2019 Potassium [Moles/Vol] 3.5 mmol/L Normal 3.5-5.0 [facility] ([place]) Comment on above: Performed By: #### G FR, BMP ####[place] [address] Calcium [Mass/Vol] 7.5 mg/dL Low 8.4-10.1 [facility] ([place]) Comment on above: Performed By: #### G FR, BMP ####[place] [address] Chloride [Moles/Vol] 100 mmol/L Normal 98-110 [facility] ([place]) Comment on above: Performed By: #### G FR, BMP ####[place] [address] CO2 [Moles/Vol] 25 mmol/L Normal 22-32 [facility] ([place]) Comment on above: Performed By: #### G FR, BMP ####[place] [address] Creatinine [Mass/Vol] 0.45 mg/dL Low 0.50-1.20 [facility] ([place]) Comment on above: Performed By: #### G FR, BMP ####[place] [address] Electrolyte Balance 8.0 mEq/L Normal 4.0-15.0 [facility] ([place]) Comment on above: Performed By: #### G FR, BMP ####[place] [address] Glucose [Mass/Vol] 103 mg/dL Normal 82-115 [facility] ([place]) Comment on above: Performed By: #### G FR, BMP ####[place] [address] Sodium [Moles/Vol] 133 mmol/L Low 136-145 [facility] ([place]) Comment on above: Performed By: #### G FR, BMP ####[place] [address] Urea nitrogen [Mass/Vol] 10.0 mg/dL Normal 8.0-22.0 [facility] ([place]) Comment on above: Performed By: #### G FR, BMP ####[place] [address] Urea nitrogen/Creatinine [Mass ratio] 22.2 ratio High 10.0-22.0 [facility] ([place]) Comment on above: Performed By: #### G FR, BMP ####[place] [address] CBCon 08-28-2019 Erythrocyte distribution width (RBC) [Ratio] 14.2 % Normal 11.5-15.5 [facility] ([place]) Comment on above: Performed By: #### M G, CMP, GFR, CBC, ADIFF, ANEU ####[place] [address] Hematocrit (Bld) [Volume fraction] 27.4 % Low 34.0-46.0 [facility] ([place]) Comment on above: Performed By: #### M G, CMP, GFR, CBC, ADIFF, ANEU ####[place] [id number] Hemoglobin (Bld) [Mass/Vol] 9.1 G/dL Low 12.0-16.0 [facility] ([place]) Comment on above: Performed By: #### M G, CMP, GFR, CBC, ADIFF, ANEU ####[place] [address] MCH (RBC) [Entitic mass] 33.0 pg Normal 27.0-33.0 [facility] ([place]) Comment on above: Performed By: #### M G, CMP, GFR, CBC, ADIFF, ANEU ####[place] [address] MCHC (RBC) [Mass/Vol] 33.2 G/dL Normal 32.0-36.0 [facility] ([place]) Comment on above: Performed By: #### M G, CMP, GFR, CBC, ADIFF, ANEU ####[place] [address] MCV (RBC) [Entitic vol] 99.6 fL High 80.0-99.0 [facility] ([place]) Comment on above: Performed By: #### M G, CMP, GFR, CBC, ADIFF, ANEU ####[place] [address] Platelet mean volume (Bld) [Entitic vol] 7.1 fL Normal 6.6-10.5 [facility] ([place]) Comment on above: Performed By: #### M G, CMP, GFR, CBC, ADIFF, ANEU ####[place] [id number] Platelets (Bld) [#/Vol] 363 10 3/mcL Normal 150-450 [facility] ([place]) Comment on above: Performed By: #### M G, CMP, GFR, CBC, ADIFF, ANEU ####[address] [place], [place] [address] RBC (Bld) [#/Vol] 2.75 10 6/mcL Low 4.10-5.30 [facility] ([place]) Comment on above: Performed By: #### M G, CMP, GFR, CBC, ADIFF, ANEU ####[address] [address] WBC (Bld) [#/Vol] 17.90 10 3/mcL High 4.50-10.80 [facility] ([place]) Comment on above: Performed By: #### M G, CMP, GFR, CBC, ADIFF, ANEU ####[address] [address] CBLon 08-28-2019 CBL . MICRO - Microbiology [...] Locations *1: This test was performed at: [facility], [address] [place] [address], [address] [place] [address] ([place]) Comment on above: Performed By: #### C BC, CMP, GFR, DIFF, MORPH #### [place] [address] CBL . MICRO - Microbiology PROCEDURE: Blood [...] Locations *1: This test was performed at: [facility], [address] [place] [address], [address] [place] [address] ([place]) Comment on above: Performed By: #### C BC, CMP, GFR, DIFF, MORPH #### [address] [address] .GFRon 08-27-2019 GFR >60 Normal [facility] ([place]) Comment on above: Result Comment: GFR Population [...] M G, CMP, GFR, CBC, ADIFF, ANEU ####[address] [address] GFR Non- >60 Normal [facility] ([place]) Comment on above: Result Comment: GFR Population [...] M G, CMP, GFR, CBC, ADIFF, ANEU ####[place] [address] .Manual Diffon 08-27-2019 Bands 1.0 % Normal 0.0-5.0 [facility] ([place]) Comment on above: Performed By: #### C BC, DIFF, MORPH ####[place] [address] Basophil %, Manual 0.0 % Normal 0.0-2.5 [facility] ([place]) Comment on above: Performed By: #### C BC, DIFF, MORPH ####[place] [address] Basophil, Abs Manual 0.00 10 3/mcL Normal 0.00-0.27 [facility] ([place]) Comment on above: Performed By: #### C BC, DIFF, MORPH ####[place] [address] Cells Counted 100 Normal [facility] ([place]) Comment on above: Performed By: #### C BC, DIFF, MORPH ####[place] [address] Eosinophil %, Manual 5.0 % Normal 0.0-6.0 [facility] ([place]) Comment on above: Performed By: #### C BC, DIFF, MORPH ####[place] [address] Eosinophil, Abs Manual 0.84 10 3/mcL High 0.00-0.65 [facility] ([place]) Comment on above: Performed By: #### C BC, DIFF, MORPH ####[place] [address] Lymphocyte %, Manual 5.0 % Low 20.0-40.0 [facility] ([place]) Comment on above: Performed By: #### C BC, DIFF, MORPH ####[place] [address] Lymphocyte, Abs Manual 0.84 10 3/mcL Low 0.90-4.32 [facility] ([place]) Comment on above: Performed By: #### C BC, DIFF, MORPH ####[place] [address] Monocyte %, Manual 6.0 % Normal 2.0-13.0 [facility] ([place]) Comment on above: Performed By: #### C BC, DIFF, MORPH ####[place] [address] Monocyte, Abs Manual 1.01 10 3/mcL Normal 0.09-1.40 [facility] ([place]) Comment on above: Performed By: #### C BC, DIFF, MORPH ####[place] [address] Neutrophil %, Manual 83.0 % High 50.0-75.0 [facility] ([place]) Comment on above: Performed By: #### C BC, DIFF, MORPH ####[place] [address] Neutrophil, Abs Manual 14.20 10 3/mcL High 2.25-8.10 [facility] ([place]) Comment on above: Performed By: #### C BC, DIFF, MORPH ####[place] [address] .Morphon 08-27-2019 Platelets (Bld) [#/Vol] Normal Normal [facility] ([place]) Comment on above: Performed By: #### C BC, DIFF, MORPH ####[place] [address] Polychrom Slight Normal [facility] ([place]) Comment on above: Performed By: #### C BC, DIFF, MORPH ####[place] [address] CBCon 08-27-2019 Erythrocyte distribution width (RBC) [Ratio] 14.2 % Normal 11.5-15.5 [facility] ([place]) Comment on above: Performed By: #### C BC, DIFF, MORPH ####[address] [place], [place] [address] Hematocrit (Bld) [Volume fraction] 29.2 % Low 34.0-46.0 [facility] ([place]) Comment on above: Performed By: #### C BC, DIFF, MORPH ####[address] [address] Hemoglobin (Bld) [Mass/Vol] 10.1 G/dL Low 12.0-16.0 [facility] ([place]) Comment on above: Performed By: #### C BC, DIFF, MORPH ####[address] [address] MCH (RBC) [Entitic mass] 33.8 pg High 27.0-33.0 [facility] ([place]) Comment on above: Performed By: #### C BC, DIFF, MORPH ####[address] [address] MCHC (RBC) [Mass/Vol] 34.6 G/dL Normal 32.0-36.0 [facility] ([place]) Comment on above: Performed By: #### C BC, DIFF, MORPH ####[address] [address] MCV (RBC) [Entitic vol] 97.7 fL Normal 80.0-99.0 [facility] ([place]) Comment on above: Performed By: #### C BC, DIFF, MORPH ####[address] [address] Platelet mean volume (Bld) [Entitic vol] 6.6 fL Normal 6.6-10.5 [facility] ([place]) Comment on above: Performed By: #### C BC, DIFF, MORPH ####[address] [address] Platelets (Bld) [#/Vol] 342 10 3/mcL Normal 150-450 [facility] ([place]) Comment on above: Performed By: #### C BC, DIFF, MORPH ####[address] [address] RBC (Bld) [#/Vol] 2.99 10 6/mcL Low 4.10-5.30 [facility] ([place]) Comment on above: Performed By: #### C BC, DIFF, MORPH ####[address] [address] WBC (Bld) [#/Vol] 16.90 10 3/mcL High 4.50-10.80 [facility] ([place]) Comment on above: Performed By: #### C BC, DIFF, MORPH ####[place] [address] CMPon 08-27-2019 Albumin/Globulin [Mass ratio] 0.8 {ratio} Low 0.9-1.6 [facility] ([place]) Comment on above: Performed By: #### M G, CMP, GFR, CBC, ADIFF, ANEU ####[place] [address] ALP [Catalytic activity/Vol] 99 U/L Normal 38-126 [facility] ([place]) Comment on above: Performed By: #### M G, CMP, GFR, CBC, ADIFF, ANEU ####[place] [address] ALT [Catalytic activity/Vol] 50 U/L High 10-49 [facility] ([place]) Comment on above: Performed By: #### M G, CMP, GFR, CBC, ADIFF, ANEU ####[place] [address] Bili Total 0.9 mg/dL Normal 0.2-1.2 [facility] ([place]) Comment on above: Result Comment: Use of this assay is not recommended for patients undergoing treatment with eltrombopag due to the potential for falsely elevated results. Performed By: #### M G, CMP, GFR, CBC, ADIFF, ANEU ####[place] [address] Creatinine [Mass/Vol] 0.39 mg/dL Low 0.50-1.20 [facility] ([place]) Comment on above: Performed By: #### M G, CMP, GFR, CBC, ADIFF, ANEU ####[place] [address] Globulin (S) [Mass/Vol] 3.2 G/dL Normal 1.5-3.8 [facility] ([place]) Comment on above: Performed By: #### M G, CMP, GFR, CBC, ADIFF, ANEU ####[address] [address] Protein [Mass/Vol] 5.8 G/dL Low 6.0-8.5 [facility] ([place]) Comment on above: Performed By: #### M G, CMP, GFR, CBC, ADIFF, ANEU ####[address] [address] Urea nitrogen/Creatinine [Mass ratio] 25.6 ratio High 10.0-22.0 [facility] ([place]) Comment on above: Performed By: #### M G, CMP, GFR, CBC, ADIFF, ANEU ####[address] [address] Potassium [Moles/Vol] 2.5 mmol/L Critically abnormal 3.5-5.0 [facility] ([place]) Comment on above: Performed By: #### M G, CMP, GFR, CBC, ADIFF, ANEU ####[address] [address] Albumin [Mass/Vol] 2.6 G/dL Low 3.2-4.8 [facility] ([place]) Comment on above: Performed By: #### M G, CMP, GFR, CBC, ADIFF, ANEU ####[address] [address] AST [Catalytic activity/Vol] 38 U/L High 8-34 [facility] ([place]) Comment on above: Performed By: #### M G, CMP, GFR, CBC, ADIFF, ANEU ####[address] [address] Calcium [Mass/Vol] 7.3 mg/dL Low 8.4-10.1 [facility] ([place]) Comment on above: Performed By: #### M G, CMP, GFR, CBC, ADIFF, ANEU ####[address] [address] Chloride [Moles/Vol] 96 mmol/L Low 98-110 [facility] ([place]) Comment on above: Performed By: #### M G, CMP, GFR, CBC, ADIFF, ANEU ####[place] [address] CO2 [Moles/Vol] 27 mmol/L Normal 22-32 [facility] ([place]) Comment on above: Performed By: #### M G, CMP, GFR, CBC, ADIFF, ANEU ####[place] [address] Electrolyte Balance 10.0 mEq/L Normal 4.0-15.0 [facility] ([place]) Comment on above: Performed By: #### M G, CMP, GFR, CBC, ADIFF, ANEU ####[place] [address] Glucose [Mass/Vol] 100 mg/dL Normal 82-115 [facility] ([place]) Comment on above: Performed By: #### M G, CMP, GFR, CBC, ADIFF, ANEU ####[place] [address] Sodium [Moles/Vol] 133 mmol/L Low 136-145 [facility] ([place]) Comment on above: Performed By: #### M G, CMP, GFR, CBC, ADIFF, ANEU ####[place] [address] Urea nitrogen [Mass/Vol] 10.0 mg/dL Normal 8.0-22.0 [facility] ([place]) Comment on above: Performed By: #### M G, CMP, GFR, CBC, ADIFF, ANEU ####[place] [address] MGon 08-27-2019 Magnesium [Mass/Vol] 1.9 mg/dL Normal 1.6-2.4 [facility] ([place]) Comment on above: Performed By: #### M G, CMP, GFR, CBC, ADIFF, ANEU ####[address] [address] .Auto Diffon 08-25-2019 Ammonia (P) [Mass/Vol] 1.40 10 3/mcL Normal 0.09-1.40 [facility] ([place]) Comment on above: Performed By: #### C BC, CMP, GFR, DIFF, MORPH #### [address] [address] Basophils (Bld) [#/Vol] 0.00 10 3/mcL Normal 0.00-0.27 [facility] ([place]) Comment on above: Performed By: #### C BC, CMP, GFR, DIFF, MORPH #### [address] [address] Basophils/100 WBC (Bld) 0.2 % Normal 0.0-2.5 [facility] ([place]) Comment on above: Performed By: #### C BC, CMP, GFR, DIFF, MORPH #### [address] [address] Eosinophils (Bld) [#/Vol] 0.10 10 3/mcL Normal 0.00-0.65 [facility] ([place]) Comment on above: Performed By: #### C BC, CMP, GFR, DIFF, MORPH #### [address] [address] Eosinophils/100 WBC (Bld) 0.3 % Normal 0.0-6.0 [facility] ([place]) Comment on above: Performed By: #### C BC, CMP, GFR, DIFF, MORPH #### [address] [address] Lymphocytes (Bld) [#/Vol] 0.60 10 3/mcL Low 0.90-4.32 [facility] ([place]) Comment on above: Performed By: #### C BC, CMP, GFR, DIFF, MORPH #### [address] [address] Lymphocytes/100 WBC (Bld) 2.9 % Low 20.0-40.0 [facility] ([place]) Comment on above: Performed By: #### C BC, CMP, GFR, DIFF, MORPH #### [address] [address] Monocytes/100 WBC (Bld) 7.4 % Normal 2.0-13.0 [facility] ([place]) Comment on above: Performed By: #### C BC, CMP, GFR, DIFF, MORPH #### [address] [address] Neutrophils/100 WBC (Bld) 89.2 % High 50.0-75.0 [facility] ([place]) Comment on above: Performed By: #### C BC, CMP, GFR, DIFF, MORPH #### [address] [address] .GFRon 08-25-2019 GFR >60 Normal [facility] ([place]) Comment on above: Result Comment: GFR Population [...] C BC, CMP, GFR, DIFF, MORPH #### [address] [address] GFR Non- >60 Normal [facility] ([place]) Comment on above: Result Comment: GFR Population [...] C BC, CMP, GFR, DIFF, MORPH #### [address] [address] .NEUABSon 08-25-2019 Neutrophils (Bld) [#/Vol] 17.20 10 3/mcL High 2.25-8.10 [facility] ([place]) Comment on above: Performed By: #### C BC, CMP, GFR, DIFF, MORPH #### [address] [address] BMPon 08-25-2019 Calcium [Mass/Vol] 6.7 mg/dL Critically abnormal 8.4-10.1 [facility] ([place]) Comment on above: Performed By: #### C BC, CMP, GFR, DIFF, MORPH #### [place] [address] Potassium [Moles/Vol] 2.6 mmol/L Critically abnormal 3.5-5.0 [facility] ([place]) Comment on above: Performed By: #### C BC, CMP, GFR, DIFF, MORPH #### [place] [address] Chloride [Moles/Vol] 99 mmol/L Normal 98-110 [facility] ([place]) Comment on above: Performed By: #### C BC, CMP, GFR, DIFF, MORPH #### [place] [address] CO2 [Moles/Vol] 25 mmol/L Normal 22-32 [facility] ([place]) Comment on above: Performed By: #### C BC, CMP, GFR, DIFF, MORPH #### [place] [address] Creatinine [Mass/Vol] 0.38 mg/dL Low 0.50-1.20 [facility] ([place]) Comment on above: Performed By: #### C BC, CMP, GFR, DIFF, MORPH #### [place] [address] Electrolyte Balance 11.0 mEq/L Normal 4.0-15.0 [facility] ([place]) Comment on above: Performed By: #### C BC, CMP, GFR, DIFF, MORPH #### [address] [address] Glucose [Mass/Vol] 72 mg/dL Low 82-115 [facility] ([place]) Comment on above: Performed By: #### C BC, CMP, GFR, DIFF, MORPH #### [address] [address] Sodium [Moles/Vol] 135 mmol/L Low 136-145 [facility] ([place]) Comment on above: Performed By: #### C BC, CMP, GFR, DIFF, MORPH #### [address] [address] Urea nitrogen [Mass/Vol] 20.0 mg/dL Normal 8.0-22.0 [facility] ([place]) Comment on above: Performed By: #### C BC, CMP, GFR, DIFF, MORPH #### [place] [phone] Urea nitrogen/Creatinine [Mass ratio] 52.6 ratio High 10.0-22.0 [facility] ([place]) Comment on above: Performed By: #### C BC, CMP, GFR, DIFF, MORPH #### [address] [address] CBCon 08-25-2019 Erythrocyte distribution width (RBC) [Ratio] 14.5 % Normal 11.5-15.5 [facility] ([place]) Comment on above: Performed By: #### C BC, CMP, GFR, DIFF, MORPH #### [address] [address] Hematocrit (Bld) [Volume fraction] 27.5 % Low 34.0-46.0 [facility] ([place]) Comment on above: Performed By: #### C BC, CMP, GFR, DIFF, MORPH #### [address] [address] Hemoglobin (Bld) [Mass/Vol] 9.1 G/dL Low 12.0-16.0 [facility] ([place]) Comment on above: Performed By: #### C BC, CMP, GFR, DIFF, MORPH #### [address] [address] MCH (RBC) [Entitic mass] 33.1 pg High 27.0-33.0 [facility] ([place]) Comment on above: Performed By: #### C BC, CMP, GFR, DIFF, MORPH #### [address] [address] MCHC (RBC) [Mass/Vol] 33.3 G/dL Normal 32.0-36.0 [facility] ([place]) Comment on above: Performed By: #### C BC, CMP, GFR, DIFF, MORPH #### [place] [address] MCV (RBC) [Entitic vol] 99.7 fL High 80.0-99.0 [facility] ([place]) Comment on above: Performed By: #### C BC, CMP, GFR, DIFF, MORPH #### [place] [address] Platelet mean volume (Bld) [Entitic vol] 7.5 fL Normal 6.6-10.5 [facility] ([place]) Comment on above: Performed By: #### C BC, CMP, GFR, DIFF, MORPH #### [place] [address] Platelets (Bld) [#/Vol] 211 10 3/mcL Normal 150-450 [facility] ([place]) Comment on above: Performed By: #### C BC, CMP, GFR, DIFF, MORPH #### [place] [address] RBC (Bld) [#/Vol] 2.76 10 6/mcL Low 4.10-5.30 [facility] ([place]) Comment on above: Performed By: #### C BC, CMP, GFR, DIFF, MORPH #### [place] [phone] WBC (Bld) [#/Vol] 19.30 10 3/mcL High 4.50-10.80 [facility] ([place]) Comment on above: Performed By: #### C BC, CMP, GFR, DIFF, MORPH #### [place] [address] COVIDon 08-25-2019 COVID 19 Result MARKETING LIAISON See Below Normal [facility] ([place]) Comment on above: Result Comment: Negshiva tive Negative for COVID19 (SARS CoV2) by PCR. This test was developed and its performance characteristics determined by [facility]. This test has been authorized by FDA under an Emergency Use Authorization (EUA). This test has been validated in accordance with the FDA's Guidance Document Policy for Diagnostics Testing in Laboratories Certified to Perform High Complexity Testing under CLIA prior to Emergency use Authorization for Coronavirus Disease 2019 during the Public Health Emergency issued on June 20, 2019. Performed By: [address] [address] On Car Supervisor: Rigoberto Avery III, M.D. CLIA#: [id number] Phone#: Performed By: #### C BC, CMP, GFR, DIFF, MORPH #### [place] [address] COVID 19 Source MARKETING LIAISON See Below [facility] ([place]) Comment on above: Result Comment: Naso pharyngeal Swab Performed By: [place] [id number] [place] [address] On Car Supervisor: Rigoberto Avery III, M.D. CLIA#: [id number] Phone#: Performed By: #### C BC, CMP, GFR, DIFF, MORPH #### [place] [phone] CURon 08-25-2019 CUR . MICRO - Microbiology [...] Locations *1: This test was performed at: [address], [place], [address]- , [place] Normal [facility] ([place]) Comment on above: Performed By: #### C BC, CMP, GFR, DIFF, MORPH #### [address] [address] Jeffrey 08-25-2019 Potassium [Moles/Vol] 3.3 mmol/L Low 3.5-5.0 [facility] ([place]) Comment on above: Performed By: #### C BC, CMP, GFR, DIFF, MORPH #### [address] [address] MGon 08-25-2019 Magnesium [Mass/Vol] 2.3 mg/dL Normal 1.6-2.4 [facility] ([place]) Comment on above: Performed By: #### C BC, CMP, GFR, DIFF, MORPH #### [address] [address] PHOSon 08-25-2019 Phosphate [Mass/Vol] 2.6 mg/dL Normal 2.5-4.5 [facility] ([place]) Comment on above: Performed By: #### C BC, CMP, GFR, DIFF, MORPH #### [address] [address] .Auto Diffon 08-24-2019 Ammonia (P) [Mass/Vol] 1.50 10 3/mcL High 0.09-1.40 [facility] ([place]) Comment on above: Performed By: #### C BC, CMP, GFR, DIFF, MORPH #### [address] [address] Basophils (Bld) [#/Vol] 0.00 10 3/mcL Normal 0.00-0.27 [facility] ([place]) Comment on above: Performed By: #### C BC, CMP, GFR, DIFF, MORPH #### [address] [address] Basophils/100 WBC (Bld) 0.1 % Normal 0.0-2.5 [facility] ([place]) Comment on above: Performed By: #### C BC, CMP, GFR, DIFF, MORPH #### [address] [address] Eosinophils (Bld) [#/Vol] 0.00 10 3/mcL Normal 0.00-0.65 [facility] ([place]) Comment on above: Performed By: #### C BC, CMP, GFR, DIFF, MORPH #### [address] [address] Eosinophils/100 WBC (Bld) 0.2 % Normal 0.0-6.0 [facility] ([place]) Comment on above: Performed By: #### C BC, CMP, GFR, DIFF, MORPH #### [address] [address] Lymphocytes (Bld) [#/Vol] 1.00 10 3/mcL Normal 0.90-4.32 [facility] ([place]) Comment on above: Performed By: #### C BC, CMP, GFR, DIFF, MORPH #### [address] [address] Lymphocytes/100 WBC (Bld) 4.2 % Low 20.0-40.0 [facility] ([place]) Comment on above: Performed By: #### C BC, CMP, GFR, DIFF, MORPH #### [address] [address] Monocytes/100 WBC (Bld) 6.7 % Normal 2.0-13.0 [facility] ([place]) Comment on above: Performed By: #### C BC, CMP, GFR, DIFF, MORPH #### [address] [address] Neutrophils/100 WBC (Bld) 88.8 % High 50.0-75.0 [facility] ([place]) Comment on above: Performed By: #### C BC, CMP, GFR, DIFF, MORPH #### [address] [address] .GFRon 08-24-2019 GFR Non- >60 Normal [facility] ([place]) Comment on above: Result Comment: GFR [...] C BC, CMP, GFR, DIFF, MORPH #### [address] [address] GFR >60 Normal [facility] ([place]) Comment on above: Result Comment: GFR Population [...] C BC, CMP, GFR, DIFF, MORPH #### [address] [address] .Morphon 08-24-2019 Anisocytosis Ql (Bld) Slight Normal [facility] ([place]) Comment on above: Performed By: #### C BC, CMP, GFR, DIFF, MORPH #### [address] [address] Hypochrom Slight Normal [facility] ([place]) Comment on above: Performed By: #### C BC, CMP, GFR, DIFF, MORPH #### [address] [address] Platelets (Bld) [#/Vol] Normal Normal [facility] ([place]) Comment on above: Performed By: #### C BC, CMP, GFR, DIFF, MORPH #### [place] [address] Poik Slight Normal [facility] ([place]) Comment on above: Performed By: #### C BC, CMP, GFR, DIFF, MORPH #### [place] [address] .NEUABSon 08-24-2019 Neutrophils (Bld) [#/Vol] 20.50 10 3/mcL High 2.25-8.10 [facility] ([place]) Comment on above: Performed By: #### C BC, CMP, GFR, DIFF, MORPH #### [place] [address] AMYon 08-24-2019 Amylase [Catalytic activity/Vol] 85 U/L Normal 25-115 [facility] ([place]) Comment on above: Performed By: #### C BC, CMP, GFR, DIFF, MORPH #### [place] [address] APTTon 08-24-2019 aPTT Coag (Bld) [Time] 26.2 s Normal 25.0-35.0 [facility] ([place]) Comment on above: Result Comment: For Heparin anticoagulation therapy, the recommended therapeutic range is: 54-77 seconds (APTT Correlation with Anti-Xa therapeutic range of 0.3-0.7 units/ml). PLEASE REFERENCE THE PHARMACY PROTOCOL FOR DOSING. Performed By: #### C BC, CMP, GFR, DIFF, MORPH #### [place] [address] aPTT Coag (Bld) [Time] None Normal [facility] ([place]) Comment on above: Performed By: #### C BC, CMP, GFR, DIFF, MORPH #### [place] [address] CBCon 08-24-2019 Erythrocyte distribution width (RBC) [Ratio] 14.2 % Normal 11.5-15.5 [facility] ([place]) Comment on above: Performed By: #### C BC, CMP, GFR, DIFF, MORPH #### [facility] [address] [place], [place] [address] Hematocrit (Bld) [Volume fraction] 28.9 % Low 34.0-46.0 [facility] ([place]) Comment on above: Performed By: #### C BC, CMP, GFR, DIFF, MORPH #### [address] [address] Hemoglobin (Bld) [Mass/Vol] 9.8 G/dL Low 12.0-16.0 [facility] ([place]) Comment on above: Performed By: #### C BC, CMP, GFR, DIFF, MORPH #### [address] [address] MCH (RBC) [Entitic mass] 33.7 pg High 27.0-33.0 [facility] ([place]) Comment on above: Performed By: #### C BC, CMP, GFR, DIFF, MORPH #### [address] [address] MCHC (RBC) [Mass/Vol] 33.8 G/dL Normal 32.0-36.0 [facility] ([place]) Comment on above: Performed By: #### C BC, CMP, GFR, DIFF, MORPH #### [address] [address] MCV (RBC) [Entitic vol] 99.7 fL High 80.0-99.0 [facility] ([place]) Comment on above: Performed By: #### C BC, CMP, GFR, DIFF, MORPH #### [address] [address] Platelet mean volume (Bld) [Entitic vol] 8.5 fL Normal 6.6-10.5 [facility] ([place]) Comment on above: Performed By: #### C BC, CMP, GFR, DIFF, MORPH #### [address] [address] Platelets (Bld) [#/Vol] 201 10 3/mcL Normal 150-450 [facility] ([place]) Comment on above: Performed By: #### C BC, CMP, GFR, DIFF, MORPH #### [address] [address] RBC (Bld) [#/Vol] 2.90 10 6/mcL Low 4.10-5.30 [facility] ([place]) Comment on above: Performed By: #### C BC, CMP, GFR, DIFF, MORPH #### [address] [address] WBC (Bld) [#/Vol] 23.10 10 3/mcL High 4.50-10.80 [facility] ([place]) Comment on above: Performed By: #### C BC, CMP, GFR, DIFF, MORPH #### [place] [address] CKon 08-24-2019 CK [Catalytic activity/Vol] 71 U/L Normal 7-185 [facility] ([place]) Comment on above: Performed By: #### C BC, CMP, GFR, DIFF, MORPH #### [place] [address] CMPon 08-24-2019 Albumin/Globulin [Mass ratio] 1.0 {ratio} Normal 0.9-1.6 [facility] ([place]) Comment on above: Performed By: #### C BC, CMP, GFR, DIFF, MORPH #### [place] [address] ALP [Catalytic activity/Vol] 77 U/L Normal 38-126 [facility] ([place]) Comment on above: Performed By: #### C BC, CMP, GFR, DIFF, MORPH #### [place] [address] Bili Total 1.1 mg/dL Normal 0.2-1.2 [facility] ([place]) Comment on above: Result Comment: Use of this assay is not recommended for patients undergoing treatment with eltrombopag due to the potential for falsely elevated results. Performed By: #### C BC, CMP, GFR, DIFF, MORPH #### [address] [address] Creatinine [Mass/Vol] 0.48 mg/dL Low 0.50-1.20 [facility] ([place]) Comment on above: Performed By: #### C BC, CMP, GFR, DIFF, MORPH #### [address] [address] Globulin (S) [Mass/Vol] 3.0 G/dL Normal 1.5-3.8 [facility] ([place]) Comment on above: Performed By: #### C BC, CMP, GFR, DIFF, MORPH #### [address] [address] Protein [Mass/Vol] 5.9 G/dL Low 6.0-8.5 [facility] ([place]) Comment on above: Performed By: #### C BC, CMP, GFR, DIFF, MORPH #### [address] [address] Urea nitrogen/Creatinine [Mass ratio] 41.7 ratio High 10.0-22.0 [facility] ([place]) Comment on above: Performed By: #### C BC, CMP, GFR, DIFF, MORPH #### [address] [address] Albumin [Mass/Vol] 2.9 G/dL Low 3.2-4.8 [facility] ([place]) Comment on above: Performed By: #### C BC, CMP, GFR, DIFF, MORPH #### [address] [address] ALT [Catalytic activity/Vol] 48 U/L Normal 10-49 [facility] ([place]) Comment on above: Performed By: #### C BC, CMP, GFR, DIFF, MORPH #### [address] [address] AST [Catalytic activity/Vol] 27 U/L Normal 8-34 [facility] ([place]) Comment on above: Performed By: #### C BC, CMP, GFR, DIFF, MORPH #### [address] [address] Calcium [Mass/Vol] 7.3 mg/dL Low 8.4-10.1 [facility] ([place]) Comment on above: Performed By: #### C BC, CMP, GFR, DIFF, MORPH #### [address] [address] Chloride [Moles/Vol] 94 mmol/L Low 98-110 [facility] ([place]) Comment on above: Performed By: #### C BC, CMP, GFR, DIFF, MORPH #### [address] [address] CO2 [Moles/Vol] 28 mmol/L Normal 22-32 [facility] ([place]) Comment on above: Performed By: #### C BC, CMP, GFR, DIFF, MORPH #### [address] [address] Electrolyte Balance 10.0 mEq/L Normal 4.0-15.0 [facility] ([place]) Comment on above: Performed By: #### C BC, CMP, GFR, DIFF, MORPH #### [address] [address] Glucose [Mass/Vol] 100 mg/dL Normal 82-115 [facility] ([place]) Comment on above: Performed By: #### C BC, CMP, GFR, DIFF, MORPH #### [place] [phone] Potassium [Moles/Vol] 2.8 mmol/L Low 3.5-5.0 [facility] ([place]) Comment on above: Performed By: #### C BC, CMP, GFR, DIFF, MORPH #### [place] [phone] Sodium [Moles/Vol] 132 mmol/L Low 136-145 [facility] ([place]) Comment on above: Performed By: #### C BC, CMP, GFR, DIFF, MORPH #### [address] [address] Urea nitrogen [Mass/Vol] 20.0 mg/dL Normal 8.0-22.0 [facility] ([place]) Comment on above: Performed By: #### C BC, CMP, GFR, DIFF, MORPH #### [address] [address] CRPon 08-24-2019 CRP [Mass/Vol] 32.20 mg/dL High <=0.80 [facility] ([place]) Comment on above: Performed By: #### C BC, CMP, GFR, DIFF, MORPH #### [address] [place], [place] [address] CT HEAD OR BRAIN W/O CONTRAS Ton 08-24-2019 CT HEAD OR BRAIN W/O CONTRAST ORIGINAL CT HEAD OR BRAIN W/O CONTRAST CLINICAL STATEMENT: SDH. . Patient fell and hit back of head. Subdural hemorrhage. Patient transferred from [facility]. TECHNIQUE: Axial CT images from skull base [...] 08/24/2019 9:25:31 AM Ordering Provider:Cristina Salcido Normal [facility] ([place]) DIMERon 08-24-2019 Fibrin D-dimer FEU IA (Bld) [Mass/Vol] 1800 ng/mL D-DU High 0-230 [facility] ([place]) Comment on above: Result Comment: Resu lts [...] C BC, CMP, GFR, DIFF, MORPH #### [place] [phone] Trixie 08-24-2019 Ferritin [Mass/Vol] 236 ng/mL Normal 8-252 [facility] ([place]) Comment on above: Performed By: #### C BC, CMP, GFR, DIFF, MORPH #### [place] [address] FIBon 08-24-2019 Fibrinogen 482 mg/dL Normal 250-550 [facility] ([place]) Comment on above: Performed By: #### C BC, CMP, GFR, DIFF, MORPH #### [place] [address] LIPon 08-24-2019 Lipase Level 312 U/L Normal 73-393 [facility] ([place]) Comment on above: Performed By: #### C BC, CMP, GFR, DIFF, MORPH #### [place] [address] MGon 08-24-2019 Magnesium [Mass/Vol] 1.9 mg/dL Normal 1.6-2.4 [facility] ([place]) Comment on above: Performed By: #### C BC, CMP, GFR, DIFF, MORPH #### [place] [address] PBNPon 08-24-2019 Natriuretic peptide B (Bld) [Mass/Vol] 369 pg/mL Normal 0-900 [facility] ([place]) Comment on above: Result Comment: NT-p roBNP results of less than 300 pg/mL effectively rules out acute congestive heart failure with 99% negative predictive value. Performed By: #### C BC, CMP, GFR, DIFF, MORPH #### [place] [address] PHOSon 08-24-2019 Phosphate [Mass/Vol] 2.2 mg/dL Low 2.5-4.5 [facility] ([place]) Comment on above: Performed By: #### C BC, CMP, GFR, DIFF, MORPH #### [address] [address] Phosphate [Mass/Vol] 2.0 mg/dL Low 2.5-4.5 [facility] ([place]) Comment on above: Performed By: #### C BC, CMP, GFR, DIFF, MORPH #### [address] [address] PROon 08-24-2019 INR Coag (PPP) [Relative time] 1.2 {INR} Normal [facility] ([place]) Comment on above: Result Comment: [employer] (CHEST, 1992, 102:312S-25S) recommended therapeutic range for oral anticoagulant therapy is: LOW RISK: Prophylaxis of venous thrombosis INR: 2.0-3.0 Treatment of pulmonary embolism 2.0-3.0 Prevention of systemic embolism 2.0-3.0 HIGH RISK: Mechanical prosthetic valves 2.5-3.5 Performed By: #### C BC, CMP, GFR, DIFF, MORPH #### [address] [address] PT Coag (PPP) [Time] 13.8 s Normal 9.0-14.6 [facility] ([place]) Comment on above: Result Comment: Effe ctive 11/04/07, Protime results may be affected by some antibiotics (i.e. Ciprofloxacin, Azithromycin, Bactrim) which may potentiate the action of oral anticoagulants, with further increases in Protime/INR. Performed By: #### C BC, CMP, GFR, DIFF, MORPH #### [address] [address] TRIGon 08-24-2019 Triglyceride [Mass/Vol] 71 mg/dL Normal 3-149 [facility] ([place]) Comment on above: Result Comment: Trig lyceride Reference Interval: Less than 150 Normal 150-199 Borderline high risk 200-499 High risk 500 or higher Very high risk Performed By: #### C BC, CMP, GFR, DIFF, MORPH #### [address] [address] Triglyceride [Mass/Vol] 74 mg/dL Normal 3-149 [facility] ([place]) Comment on above: Result Comment: Trig lyceride Reference Interval: Less than 150 Normal 150-199 Borderline high risk 200-499 High risk 500 or higher Very high risk Performed By: #### C BC, CMP, GFR, DIFF, MORPH #### [address] [address] TROPIon 08-24-2019 Troponin I.cardiac [Mass/Vol] ng/mL Normal 0.000-0.040 [facility] ([place]) Comment on above: Result Comment: Trop onin I reference ranges (12/28/13): 0.00-0.040 ng/mL Negative and non-diagnostic. >0.040 ng/mL Consistent with cardiac damage, increased clinical risk and possibility of myocardial infarction. Serial measurements, a rise & fall in test results, clinical history, appropriate symptoms and/or ECG changes may help assess possibility of ID. *Other non-acute coronary syndrome conditions such as CHF, myocarditis, pulmonary emboli, sepsis and cardiac surgery could result in myocardial damage and increased troponin levels. Performed By: #### C BC, CMP, GFR, DIFF, MORPH #### [address] [address] .GFRon 08-23-2019 GFR Non- >60 Normal [facility] ([place]) Comment on above: Result Comment: GFR Population [...] C BC, CMP, GFR, DIFF, MORPH #### [address] [address] GFR >60 Normal [facility] ([place]) Comment on above: Result Comment: GFR Population [...] C BC, CMP, GFR, DIFF, MORPH #### [address] [address] .Manual Diffon 08-23-2019 Bands 2.0 % Normal 0.0-5.0 [facility] ([place]) Comment on above: Performed By: #### C BC, CMP, GFR, DIFF, MORPH #### [place] [address] Basophil %, Manual 0.0 % Normal 0.0-2.5 [facility] ([place]) Comment on above: Performed By: #### C BC, CMP, GFR, DIFF, MORPH #### [address] [address] Basophil, Abs Manual 0.00 10 3/mcL Normal 0.00-0.27 [facility] ([place]) Comment on above: Performed By: #### C BC, CMP, GFR, DIFF, MORPH #### [address] [address] Cells Counted 100 Normal [facility] ([place]) Comment on above: Performed By: #### C BC, CMP, GFR, DIFF, MORPH #### [address] [address] Eosinophil %, Manual 0.0 % Normal 0.0-6.0 [facility] ([place]) Comment on above: Performed By: #### C BC, CMP, GFR, DIFF, MORPH #### [address] [address] Eosinophil, Abs Manual 0.00 10 3/mcL Normal 0.00-0.65 [facility] ([place]) Comment on above: Performed By: #### C BC, CMP, GFR, DIFF, MORPH #### [address] [address] Lymphocyte %, Manual 9.0 % Low 20.0-40.0 [facility] ([place]) Comment on above: Performed By: #### C BC, CMP, GFR, DIFF, MORPH #### [address] [address] Lymphocyte, Abs Manual 2.18 10 3/mcL Normal 0.90-4.32 [facility] ([place]) Comment on above: Performed By: #### C BC, CMP, GFR, DIFF, MORPH #### [address] [address] Monocyte %, Manual 5.0 % Normal 2.0-13.0 [facility] ([place]) Comment on above: Performed By: #### C BC, CMP, GFR, DIFF, MORPH #### [address] [address] Monocyte, Abs Manual 1.21 10 3/mcL Normal 0.09-1.40 [facility] ([place]) Comment on above: Performed By: #### C BC, CMP, GFR, DIFF, MORPH #### [address] [address] Neutrophil %, Manual 84.0 % High 50.0-75.0 [facility] ([place]) Comment on above: Performed By: #### C BC, CMP, GFR, DIFF, MORPH #### [address] [address] Neutrophil, Abs Manual 18.41 10 3/mcL High 2.25-8.10 [facility] ([place]) Comment on above: Performed By: #### C BC, CMP, GFR, DIFF, MORPH #### [place] [address] .Morphon 08-23-2019 Platelets (Bld) [#/Vol] Normal Normal [facility] ([place]) Comment on above: Performed By: #### C BC, CMP, GFR, DIFF, MORPH #### [place] [address] RBC morphology finding Nom (Bld) Normal Normal [facility] ([place]) Comment on above: Performed By: #### C BC, CMP, GFR, DIFF, MORPH #### [address] [address] Benji 08-23-2019 Ethanol Level <10.0 Normal [facility] ([place]) Comment on above: Performed By: #### C BC, CMP, GFR, DIFF, MORPH #### [address] [address] APTTon 08-23-2019 aPTT Coag (Bld) [Time] None Normal [facility] ([place]) Comment on above: Performed By: #### A PTT, PRO #### [address] [address] aPTT Coag (Bld) [Time] 23.8 s Low 25.0-35.0 [facility] ([place]) Comment on above: Result Comment: For Heparin anticoagulation therapy, the recommended therapeutic range is: 54-77 seconds (APTT Correlation with Anti-Xa therapeutic range of 0.3-0.7 units/ml). PLEASE REFERENCE THE PHARMACY PROTOCOL FOR DOSING. Performed By: #### A PTT, PRO #### [address] [address] CBCon 08-23-2019 Erythrocyte distribution width (RBC) [Ratio] 14.0 % Normal 11.5-15.5 [facility] ([place]) Comment on above: Performed By: #### C BC, CMP, GFR, DIFF, MORPH #### [address] [address] Hematocrit (Bld) [Volume fraction] 29.7 % Low 34.0-46.0 [facility] ([place]) Comment on above: Performed By: #### C BC, CMP, GFR, DIFF, MORPH #### [address] [address] Hemoglobin (Bld) [Mass/Vol] 10.3 G/dL Low 12.0-16.0 [facility] ([place]) Comment on above: Performed By: #### C BC, CMP, GFR, DIFF, MORPH #### [address] [address] MCH (RBC) [Entitic mass] 33.9 pg High 27.0-33.0 [facility] ([place]) Comment on above: Performed By: #### C BC, CMP, GFR, DIFF, MORPH #### [address] [address] MCHC (RBC) [Mass/Vol] 34.7 G/dL Normal 32.0-36.0 [facility] ([place]) Comment on above: Performed By: #### C BC, CMP, GFR, DIFF, MORPH #### [place] [id number] MCV (RBC) [Entitic vol] 97.7 fL Normal 80.0-99.0 [facility] ([place]) Comment on above: Performed By: #### C BC, CMP, GFR, DIFF, MORPH #### [place] [id number] Platelet mean volume (Bld) [Entitic vol] 8.0 fL Normal 6.6-10.5 [facility] ([place]) Comment on above: Performed By: #### C BC, CMP, GFR, DIFF, MORPH #### [address] [address] Platelets (Bld) [#/Vol] 193 10 3/mcL Normal 150-450 [facility] ([place]) Comment on above: Performed By: #### C BC, CMP, GFR, DIFF, MORPH #### [place] [id number] RBC (Bld) [#/Vol] 3.04 10 6/mcL Low 4.10-5.30 [facility] ([place]) Comment on above: Performed By: #### C BC, CMP, GFR, DIFF, MORPH #### [place] [id number] WBC (Bld) [#/Vol] 24.20 10 3/mcL High 4.50-10.80 [facility] ([place]) Comment on above: Performed By: #### C BC, CMP, GFR, DIFF, MORPH #### [address] [address] CMPon 08-23-2019 Albumin/Globulin [Mass ratio] 0.9 {ratio} Normal 0.9-1.6 [facility] ([place]) Comment on above: Performed By: #### C BC, CMP, GFR, DIFF, MORPH #### [address] [address] ALP [Catalytic activity/Vol] 71 U/L Normal 38-126 [facility] ([place]) Comment on above: Performed By: #### C BC, CMP, GFR, DIFF, MORPH #### [address] [address] Bili Total 1.7 mg/dL High 0.2-1.2 [facility] ([place]) Comment on above: Result Comment: Use of this assay is not recommended for patients undergoing treatment with eltrombopag due to the potential for falsely elevated results. Performed By: #### C BC, CMP, GFR, DIFF, MORPH #### [place] [id number] Creatinine [Mass/Vol] 0.40 mg/dL Low 0.50-1.20 [facility] ([place]) Comment on above: Performed By: #### C BC, CMP, GFR, DIFF, MORPH #### [address] [address] Globulin (S) [Mass/Vol] 3.5 G/dL Normal 1.5-3.8 [facility] ([place]) Comment on above: Performed By: #### C BC, CMP, GFR, DIFF, MORPH #### [address] [address] Glucose [Mass/Vol] 120 mg/dL High 82-115 [facility] ([place]) Comment on above: Performed By: #### C BC, CMP, GFR, DIFF, MORPH #### [address] [address] Protein [Mass/Vol] 6.8 G/dL Normal 6.0-8.5 [facility] ([place]) Comment on above: Performed By: #### C BC, CMP, GFR, DIFF, MORPH #### [address] [address] Urea nitrogen/Creatinine [Mass ratio] 57.5 ratio High 10.0-22.0 [facility] ([place]) Comment on above: Performed By: #### C BC, CMP, GFR, DIFF, MORPH #### [address] [address] Albumin [Mass/Vol] 3.3 G/dL Normal 3.2-4.8 [facility] ([place]) Comment on above: Performed By: #### C BC, CMP, GFR, DIFF, MORPH #### [address] [address] ALT [Catalytic activity/Vol] 61 U/L High 10-49 [facility] ([place]) Comment on above: Performed By: #### C BC, CMP, GFR, DIFF, MORPH #### [address] [address] AST [Catalytic activity/Vol] 41 U/L High 8-34 [facility] ([place]) Comment on above: Performed By: #### C BC, CMP, GFR, DIFF, MORPH #### [address] [address] Calcium [Mass/Vol] 7.4 mg/dL Low 8.4-10.1 [facility] ([place]) Comment on above: Performed By: #### C BC, CMP, GFR, DIFF, MORPH #### [address] [address] Chloride [Moles/Vol] 94 mmol/L Low 98-110 [facility] ([place]) Comment on above: Performed By: #### C BC, CMP, GFR, DIFF, MORPH #### [address] [address] CO2 [Moles/Vol] 27 mmol/L Normal 22-32 [facility] ([place]) Comment on above: Performed By: #### C BC, CMP, GFR, DIFF, MORPH #### [address] [address] Electrolyte Balance 9.0 mEq/L Normal 4.0-15.0 [facility] ([place]) Comment on above: Performed By: #### C BC, CMP, GFR, DIFF, MORPH #### [address] [address] Potassium [Moles/Vol] 2.9 mmol/L Low 3.5-5.0 [facility] ([place]) Comment on above: Performed By: #### C BC, CMP, GFR, DIFF, MORPH #### [address] [address] Sodium [Moles/Vol] 130 mmol/L Low 136-145 [facility] ([place]) Comment on above: Performed By: #### C BC, CMP, GFR, DIFF, MORPH #### [address] [address] Urea nitrogen [Mass/Vol] 23.0 mg/dL High 8.0-22.0 [facility] ([place]) Comment on above: Performed By: #### C BC, CMP, GFR, DIFF, MORPH #### [address] [address] [address] ABD/PELVIS W/ IV CONTRAST ONLYon 08-23-2019 [...] Date: 08/23/2019 7:20:52 PM Ordering Provider:Bernabe Chairez [facility] ([place]) CT THORAX W/ CONTRASTon 05-0 CT THORAX [...] 08/23/2019 7:09:11 PM Ordering Provider:Bernabe Chairez Normal [facility] ([place]) LIPon 08-23-2019 Lipase Level 1226 U/L High 73-393 [facility]) Comment on above: Performed By: #### C BC, CMP, GFR, DIFF, MORPH #### [place] [address] PROon 08-23-2019 INR Coag (PPP) [Relative time] 1.2 {INR} Normal [facility] ([place]) Comment on above: Result Comment: The [employer] (CHEST, 1992, [id number]) recommended therapeutic range for oral anticoagulant therapy is: LOW RISK: Prophylaxis of venous thrombosis INR: 2.0-3.0 Treatment of pulmonary embolism 2.0-3.0 Prevention of systemic embolism 2.0-3.0 HIGH RISK: Mechanical prosthetic valves 2.5-3.5 Performed By: #### C BC, CMP, GFR, DIFF, MORPH #### [address] [address] PT Coag (PPP) [Time] 14.5 s Normal 9.0-14.6 [facility] ([place]) Comment on above: Result Comment: Effe ctive 11/04/07, Protime results may be affected by some antibiotics (i.e. Ciprofloxacin, Azithromycin, Bactrim) which may potentiate the action of oral anticoagulants, with further increase in Protime/INR. Performed By: #### C BC, CMP, GFR, DIFF, MORPH #### [address] [address] RESPIDon 08-23-2019 Adenovirus Not Detected Normal Not Detected [facility] ([place]) Comment on above: Order Comment: Order added by [email or web address] Performed By: #### C BC, CMP, GFR, DIFF, MORPH #### [place] [address] Bordetella Parapertussis Not Detected Normal Not Detected [facility] ([place]) Comment on above: Order Comment: Order added by [email or web address] Performed By: #### C BC, CMP, GFR, DIFF, MORPH #### [place] [address] Bordetella Pertussis Not Detected Normal Not Detected [facility] ([place] Comment on above: Order Comment: Order added by [email or web address] Performed By: #### C BC, CMP, GFR, DIFF, MORPH #### [place] [address] Chlamydophila pneumoniae Not Detected Normal Not Detected [facility] ([place] Comment on above: Order Comment: Order added by [email or web address] Performed By: #### C BC, CMP, GFR, DIFF, MORPH #### [place] [address] Coronavirus 229E (Not COVID-19) Not Detected Normal Not Detected [facility] ([place] Comment on above: Order Comment: Order added by [email or web address] Performed By: #### C BC, CMP, GFR, DIFF, MORPH #### [place] [address] Coronavirus HKU1 (Not COVID-19) Not Detected Normal Not Detected [facility] ([place] Comment on above: Order Comment: Order added by [email or web address] Performed By: #### C BC, CMP, GFR, DIFF, MORPH #### [place] [address] Coronavirus NL63 (Not COVID-19) Not Detected Normal Not Detected [facility] ([place] Comment on above: Order Comment: Order added by [email or web address] Performed By: #### C BC, CMP, GFR, DIFF, MORPH #### [place] [address] Coronavirus OC43 (Not COVID-19) Not Detected Normal Not Detected [facility] ([place] Comment on above: Order Comment: Order added by [email or web address] Performed By: #### C BC, CMP, GFR, DIFF, MORPH #### [place] [address] Human Metapneumovirus Not Detected Normal Not Detected [facility] [place] Comment on above: Order Comment: Order added by [email or web address] Performed By: #### C BC, CMP, GFR, DIFF, MORPH #### [place] [address] Influenza A Not Detected Normal Not Detected [facility] [place] Comment on above: Order Comment: Order added by [email or web address] Performed By: #### C BC, CMP, GFR, DIFF, MORPH #### [place] [address] Influenza B Not Detected Normal Not Detected [facility] ([place] Comment on above: Order Comment: Order added by [email or web address] Performed By: #### C BC, CMP, GFR, DIFF, MORPH #### [place] [address] Mycoplasma pneumoniae Not Detected Normal Not Detected [facility] [place] Comment on above: Order Comment: Order added by [email or web address] Performed By: #### C BC, CMP, GFR, DIFF, MORPH #### [place] [address] Parainfluenza 1 Not Detected Normal Not Detected [facility] [place] Comment on above: Order Comment: Order added by [email or web address] Performed By: #### C BC, CMP, GFR, DIFF, MORPH #### [place] [address] Parainfluenza 2 Not Detected Normal Not Detected [facility] [place] Comment on above: Order Comment: Order added by [email or web address] Performed By: #### C BC, CMP, GFR, DIFF, MORPH #### [place] [address] Parainfluenza 3 Not Detected Normal Not Detected [facility] [place] Comment on above: Order Comment: Order added by [email or web address] Performed By: #### C BC, CMP, GFR, DIFF, MORPH #### [place] [address] Parainfluenza 4 Not Detected Normal Not Detected [facility] [place] Comment on above: Order Comment: Order added by [email or web address] Performed By: #### C BC, CMP, GFR, DIFF, MORPH #### [place] [address] Respiratory Syncytial Virus Not Detected Normal Not Detected [facility] [place] Comment on above: Order Comment: Order added by [email or web address] Performed By: #### C BC, CMP, GFR, DIFF, MORPH #### [place] [address] Rhinovirus/Enterovirus Not Detected Normal Not Detected [facility] ([place] Comment on above: Order Comment: Order added by [email or web address] Performed By: #### C BC, CMP, GFR, DIFF, MORPH #### [place] [address] RFLUon 08-23-2019 RFLU . MICRO - Microbiology [...] Locations *1: This test was performed at: [facility], [address] [place] [address], [facility] , [facility] ([place]) Comment on above: Performed By: #### C BC, CMP, GFR, DIFF, MORPH #### [address] [address] XR CHEST 1 VIEWon 08-23-2019 XR CHEST [...] Date: 08/23/2019 7:23:50 PM Ordering Provider:Bernabe Chairez [facility] ([place]) XR PELVIS 1 OR 2 VIEWSon XR [...] Date: 08/23/2019 7:24:38 PM Ordering Provider:Bernabe Chairez [facility] ([place]) Culture, urine Bacteria identified Cx Nom (U) Staphylococcus hominis hominis [facility] Work Phone: Bacteria identified Cx Nom (U) Escherichia coli [facility] Work Phone: Bacteria identified Cx Nom (U) Enterococcus faecalis [facility] Work Phone: Vital Signs Date Time Vital Sign Value Performing Clinician Facility 07-04-2024 16:37-0400 Diastolic blood pressure 81 mm[Hg] Dr. Erica Richardson DO Work Phone: [facility] 07-04-2024 16:37-0400 Heart rate 77 /min Dr. Erica Richardson DO Work Phone: [facility] 07-04-2024 16:37-0400 Respiratory rate 16 /min Dr. Erica Richardson DO Work Phone: [facility] 07-04-2024 16:37-0400 SaO2% (BldA) [Mass fraction] 96 % Dr. Erica Richardson DO Work Phone: [facility] 07-04-2024 16:37-0400 Systolic blood pressure 167 mm[Hg] Dr. Erica Richardson DO Work Phone: [facility] 07-04-2024 12:57-0400 Body height 167.[address] Erica Richardson DO Work Phone: [facility] 07-04-2024 12:57-0400 Body mass index (BMI) [Ratio] 27.3 kg/m2 Dr. Erica Richardson DO Work Phone: [facility] 07-04-2024 12:57-0400 Body temperature 98 [degF] Dr. Erica Richardson DO Work Phone: [facility] 07-04-2024 12:57-0400 Body weight 76.[address] Erica Richardson DO Work Phone: [facility] 08-20-2023 17:53-0400 Body temperature 98 [degF] Dr. Erica Richardson Work Phone: [facility] 08-20-2023 17:53-0400 Diastolic blood pressure 80 mm[Hg] Dr. Erica Richardson Work Phone: [facility] 08-20-2023 17:53-0400 Heart rate 80 /min Dr. Erica Richardson Work Phone: [facility] 08-20-2023 17:53-0400 Respiratory rate 16 /min Dr. Erica Richardson Work Phone: [facility] 08-20-2023 17:53-0400 SaO2% (BldA) [Mass fraction] 97 % Dr. Erica Richardson Work Phone: [facility] 08-20-2023 17:53-0400 Systolic blood pressure 158 mm[Hg] Dr. Erica Richardson Work Phone: [facility] 08-20-2023 12:24-0400 Body height 165.[address] Erica Richardson Work Phone: [facility] 08-20-2023 12:24-0400 Body mass index (BMI) [Ratio] 27.2 kg/m2 Dr. Erica Richardson Work Phone: [facility] 08-20-2023 12:24-0400 Body weight 74.[address] Erica Richardson Work Phone: [facility] 05-21-2023 11:05-0500 Body temperature 98.4 [degF] Dr. Erica Richardson Work Phone: [facility] 05-21-2023 11:05-0500 Diastolic blood pressure 60 mm[Hg] Dr. Erica Richardson Work Phone: [facility] 05-21-2023 11:05-0500 Heart rate 61 /min Dr. Erica Richardson Work Phone: [facility] 05-21-2023 11:05-0500 Respiratory rate 18 /min Dr. Erica Richardson Work Phone: [facility] 05-21-2023 11:05-0500 SaO2% (BldA) [Mass fraction] 94 % Dr. Erica Richardson Work Phone: [facility] 05-21-2023 11:05-0500 Systolic blood pressure 125 mm[Hg] Dr. Erica Richardson Work Phone: [facility] 05-21-2023 06:00-0500 Body mass index (BMI) [Ratio] 26.6 kg/m2 Dr. Erica Richardson Work Phone: [facility] 05-21-2023 06:00-0500 Body weight 74.[address] Erica Richardson Work Phone: [facility] 05-19-2023 09:16-0500 Inhaled oxygen concentration 2 % Dr. Erica Richardson Work Phone: [facility] 05-19-2023 08:00-0500 Inhaled oxygen flow rate 2 L/min Dr. Erica Richardson Work Phone: [facility] 05-19-2023 03:16-0500 Body height 167.[address] Erica Richardson Work Phone: [facility] 05-19-2023 02:23-0500 Body temperature 98.7 [degF] Dr. Erica Richardson Work Phone: [facility] 05-19-2023 02:23-0500 Diastolic blood pressure 57 mm[Hg] Dr. Erica Richardson Work Phone: [facility] 05-19-2023 02:23-0500 Heart rate 87 /min Dr. Erica Richardson Work Phone: [facility] 05-19-2023 02:23-0500 Respiratory rate 16 /min Dr. Erica Richardson Work Phone: [facility] 05-19-2023 02:23-0500 SaO2% (BldA) [Mass fraction] 95 % Dr. Erica Richardson Work Phone: [facility] 05-19-2023 02:23-0500 Systolic blood pressure 99 mm[Hg] Dr. Erica Richardson Work Phone: [facility] 05-19-2023 01:17-0500 Inhaled oxygen flow rate 3 L/min Dr. Erica Richardson Work Phone: [facility] 05-18-2023 23:28-0500 Body height 167.[address] Erica Richardson Work Phone: [facility] 05-18-2023 23:28-0500 Body mass index (BMI) [Ratio] 25.9 kg/m2 Dr. Erica Richardson Work Phone: [facility] 05-18-2023 23:28-0500 Body weight [address] Erica Richardson Work Phone: [facility] 11-23-2022 13:00-0400 Body temperature 97.8 [degF] Dr. Erica Richardson Work Phone: [facility] 11-23-2022 13:00-0400 Diastolic blood pressure 70 mm[Hg] Dr. Erica Richardson Work Phone: [facility] 11-23-2022 13:00-0400 Heart rate 98 /min Dr. Erica Richardson Work Phone: [facility] 11-23-2022 13:00-0400 Respiratory rate 16 /min Dr. Erica Richardson Work Phone: [facility] 11-23-2022 13:00-0400 SaO2% (BldA) [Mass fraction] 94 % Dr. Erica Richardson Work Phone: [facility] 11-23-2022 13:00-0400 Systolic blood pressure 139 mm[Hg] Dr. Erica Richardson Work Phone: [facility] 11-23-2022 06:51-0400 Inhaled oxygen flow rate 2 L/min Dr. Erica Richardson Work Phone: [facility] 11-22-2022 18:25-0400 Body height 167.[address] Erica Richardson Work Phone: [facility] 11-22-2022 18:25-0400 Body mass index (BMI) [Ratio] 24.2 kg/m2 Dr. Erica Richardson Work Phone: [facility] 11-22-2022 18:25-0400 Body weight 68.[address] Erica Richardson Work Phone: [facility] 11-22-2022 17:49-0400 Body temperature 98 [degF] [facility] 11-22-2022 17:49-0400 Diastolic blood pressure 79 mm[Hg] [facility] 11-22-2022 17:49-0400 Heart rate 72 /min [facility] 11-22-2022 17:49-0400 Respiratory rate 18 /min [facility] 11-22-2022 17:49-0400 SaO2% (BldA) [Mass fraction] 93 % [facility] 11-22-2022 17:49-0400 Systolic blood pressure 151 mm[Hg] [facility] 11-22-2022 12:42-0400 Body height 167.64 cm [facility] 11-22-2022 12:42-0400 Body mass index (BMI) [Ratio] 24.2 kg/m2 [facility] 11-22-2022 12:42-0400 Body weight 68.03 kg [facility] 11-22-2022 11:47-0400 Body temperature 99.61 [degF] [facility] [employer] Work Phone: [facility] 11-22-2022 11:47-0400 Body weight 68.04 kg [facility] Work Phone: [facility] 11-22-2022 11:47-0400 Diastolic blood pressure 64 mm[Hg] [facility] [employer] Work Phone: [facility] 11-22-2022 11:47-0400 Heart rate 85 /min [facility] [employer] Work Phone: [facility] 11-22-2022 11:47-0400 Respiratory rate 18 /min [facility] [employer] Work Phone: [facility] 11-22-2022 11:47-0400 SaO2% (BldA) [Mass fraction] 93 % [facility] [employer] Work Phone: [facility] 11-22-2022 11:47-0400 Systolic blood pressure 110 mm[Hg] [facility] [employer] Work Phone: [facility] 07-02-2022 21:05-0400 Diastolic blood pressure 80 mm[Hg] Dr. Erica Richardson Work Phone: [facility] 07-02-2022 21:05-0400 Heart rate 79 /min Dr. Erica Richardson Work Phone: [facility] 07-02-2022 21:05-0400 Respiratory rate 16 /min Dr. Erica Richardson Work Phone: [facility] 07-02-2022 21:05-0400 SaO2% (BldA) [Mass fraction] 97 % Dr. Erica Richardson Work Phone: [facility] 07-02-2022 21:05-0400 Systolic blood pressure 130 mm[Hg] Dr. Erica Richardson Work Phone: [facility] 07-02-2022 16:14-0400 Body height 167.[address] Erica Richardson Work Phone: [facility] 07-02-2022 16:14-0400 Body mass index (BMI) [Ratio] 21.7 kg/m2 Dr. Erica Richardson Work Phone: [facility] 07-02-2022 16:14-0400 Body temperature 97.3 [degF] Dr. Erica Richardson Work Phone: [facility] 07-02-2022 16:14-0400 Body weight 61.[address] Erica Richardson Work Phone: [facility] 03-09-2022 08:51-0500 Body height 167.[address] Erica Richardson Work Phone: [facility] 01-10-2022 13:39-0400 Diastolic blood pressure 81 mm[Hg] Dr. Erica Richardson Work Phone: [facility] Work Phone: 01-10-2022 13:39-0400 Heart rate 83 /min Dr. Erica Richardson Work Phone: [facility] Work Phone: 01-10-2022 13:39-0400 Respiratory rate 19 /min Dr. Erica Richardson Work Phone: [facility] Work Phone: 01-10-2022 13:39-0400 SaO2% (BldA) [Mass fraction] 95 % Dr. Erica Richardson Work Phone: [facility] Work Phone: 01-10-2022 13:39-0400 Systolic blood pressure 149 mm[Hg] Dr. Erica Richardson Work Phone: [facility] Work Phone: 01-10-2022 11:44-0400 Body height 167.[address] Erica Richardson Work Phone: [facility] Work Phone: 01-10-2022 11:44-0400 Body mass index (BMI) [Ratio] 22.7 kg/m2 Dr. Erica Richardson Work Phone: [facility] Work Phone: 01-10-2022 11:44-0400 Body temperature 98.1 [degF] Dr. Erica Richardson Work Phone: [facility] Work Phone: 01-10-2022 11:44-0400 Body weight 63.[address] Erica Richardson Work Phone: [facility] Work Phone: 01-09-2022 13:26-0400 Body height 167.6 cm All Tsang MD Work Phone: [facility] 01-09-2022 13:26-0400 Body weight 56.7 kg All Tsang MD Work Phone: [facility] 01-09-2022 13:26-0400 Diastolic blood pressure 64 mm[Hg] All Tsang MD Work Phone: [facility] 01-09-2022 13:26-0400 Heart rate 66 /min All Tsang MD Work Phone: [facility] 01-09-2022 13:26-0400 SaO2% (BldA) [Mass fraction] 97 % All Tsang MD Work Phone: [facility] 01-09-2022 13:26-0400 Systolic blood pressure 110 mm[Hg] All Tsang MD Work Phone: [facility] 11-02-2021 13:06-0400 Body height 167.6 cm Acute 359 Work Phone: [facility] 11-02-2021 13:06-0400 Body weight 63.96 kg Acute 359 Work Phone: [facility] 11-02-2021 13:06-0400 Diastolic blood pressure 74 mm[Hg] Acute 359 Work Phone: [facility] 11-02-2021 13:06-0400 Heart rate 86 /min Acute 359 Work Phone: [facility] 11-02-2021 13:06-0400 Respiratory rate 20 /min Acute 359 Work Phone: [facility] 11-02-2021 13:06-0400 SaO2% (BldA) [Mass fraction] 95 % Acute 359 Work Phone: [facility] 11-02-2021 13:06-0400 Systolic blood pressure 112 mm[Hg] Acute 359 Work Phone: [facility] 10-07-2021 01:00-0400 Diastolic blood pressure 81 mm[Hg] Dr. Erica Richardson Work Phone: [facility] Work Phone: 10-07-2021 01:00-0400 Heart rate 85 /min Dr. Erica Richardson Work Phone: [facility] Work Phone: 10-07-2021 01:00-0400 Inhaled oxygen flow rate 2 L/min Dr. Erica Richardson Work Phone: [facility] Work Phone: 10-07-2021 01:00-0400 Respiratory rate 14 /min Dr. Erica Richardson Work Phone: [facility] Work Phone: 10-07-2021 01:00-0400 SaO2% (BldA) [Mass fraction] 100 % Dr. Erica Richardson Work Phone: [facility] Work Phone: 10-07-2021 01:00-0400 Systolic blood pressure 138 mm[Hg] Dr. Erica Richardson Work Phone: [facility] Work Phone: 10-06-2021 21:19-0400 Body height 167.[address] Erica Richardson Work Phone: [facility] Work Phone: 10-06-2021 21:19-0400 Body mass index (BMI) [Ratio] 20.9 kg/m2 Dr. Erica Richardson Work Phone: [facility] Work Phone: 10-06-2021 21:19-0400 Body temperature 96.9 [degF] Dr. Erica Richardson Work Phone: [facility] Work Phone: 10-06-2021 21:19-0400 Body weight 58.[address] Erica Richardson Work Phone: [facility] Work Phone: 08-07-2021 10:54-0400 Body mass index (BMI) [Ratio] 22.9 kg/m2 Dr. Erica Richardson Work Phone: [facility] Work Phone: 08-07-2021 10:54-0400 Body temperature 97.3 [degF] Dr. Erica Richardson Work Phone: [facility] Work Phone: 08-07-2021 10:54-0400 Body weight 62.[address] Erica Richardson Work Phone: [facility] Work Phone: 08-07-2021 10:54-0400 Diastolic blood pressure 76 mm[Hg] Dr. Erica Richardson Work Phone: [facility] Work Phone: 08-07-2021 10:54-0400 Heart rate 91 /min Dr. Erica Richardson Work Phone: [facility] Work Phone: 08-07-2021 10:54-0400 Respiratory rate 18 /min Dr. Erica Richadrson Work Phone: [facility] Work Phone: 08-07-2021 10:54-0400 SaO2% (BldA) [Mass fraction] 97 % Dr. Erica Richardson Work Phone: [facility] Work Phone: 08-07-2021 10:54-0400 Systolic blood pressure 120 mm[Hg] Dr. Erica Richardson Work Phone: [facility] Work Phone: 08-07-2021 10:54-0400 Body height 165.[address] Erica Richardson Work Phone: [facility] Work Phone: 08-07-2021 10:54-0400 Body mass index (BMI) [Ratio] 22.9 kg/m2 Dr. Erica Richardson Work Phone: [facility] Work Phone: 08-07-2021 10:54-0400 Body temperature 97.3 [degF] Dr. Erica Richardson Work Phone: [facility] Work Phone: 08-07-2021 10:54-0400 Body weight 62.[address] Erica Richardson Work Phone: [facility] Work Phone: 08-07-2021 10:54-0400 Diastolic blood pressure 76 mm[Hg] Dr. Erica Richardson Work Phone: [facility] Work Phone: 08-07-2021 10:54-0400 Heart rate 91 /min Dr. Erica Richardson Work Phone: [facility] Work Phone: 08-07-2021 10:54-0400 Respiratory rate 18 /min Dr. Erica Richardson Work Phone: [facility] Work Phone: 08-07-2021 10:54-0400 SaO2% (BldA) [Mass fraction] 97 % Dr. Erica Richardson Work Phone: [facility] Work Phone: 08-07-2021 10:54-0400 Systolic blood pressure 120 mm[Hg] Dr. Erica Richardson Work Phone: [facility] Work Phone: 07-12-2021 11:59-0400 Body temperature 100.29 [degF] Nicho Johnson MD Work Phone: [facility] 07-12-2021 11:59-0400 Body weight 60.6 kg Nicho Johnson MD Work Phone: [facility] 07-12-2021 11:59-0400 Diastolic blood pressure 92 mm[Hg] Nicho Johnson MD Work Phone: [facility] 07-12-2021 11:59-0400 Heart rate 97 /min Nicho Johnson MD Work Phone: [facility] 07-12-2021 11:59-0400 Respiratory rate 21 /min Nicho Johnson MD Work Phone: [facility] 07-12-2021 11:59-0400 SaO2% (BldA) [Mass fraction] 98 % Nicho Johnson MD Work Phone: [facility] 07-12-2021 11:59-0400 Systolic blood pressure 152 mm[Hg] Nicho Johnson MD Work Phone: [facility] 06-11-2021 15:56-0500 Diastolic blood pressure 83 mm[Hg] Dr. Erica Richardson Work Phone: [facility] Work Phone: 06-11-2021 15:56-0500 Heart rate 89 /min Dr. Erica Richardson Work Phone: [facility] Work Phone: 06-11-2021 15:56-0500 Respiratory rate 16 /min Dr. Erica Richardson Work Phone: [facility] Work Phone: 06-11-2021 15:56-0500 SaO2% (BldA) [Mass fraction] 97 % Dr. Erica Richardson Work Phone: [facility] Work Phone: 06-11-2021 15:56-0500 Systolic blood pressure 149 mm[Hg] Dr. Erica Richardson Work Phone: [facility] Work Phone: 06-11-2021 14:56-0500 Diastolic blood pressure 83 mm[Hg] Dr. Erica Richardson Work Phone: [facility] Work Phone: 06-11-2021 14:56-0500 Heart rate 89 /min Dr. Erica Richardson Work Phone: [facility] Work Phone: 06-11-2021 14:56-0500 Respiratory rate 16 /min Dr. Erica Richardson Work Phone: [facility] Work Phone: 06-11-2021 14:56-0500 SaO2% (BldA) [Mass fraction] 97 % Dr. Erica Richardson Work Phone: [facility] Work Phone: 06-11-2021 14:56-0500 Systolic blood pressure 149 mm[Hg] Dr. Erica Richardson Work Phone: [facility] Work Phone: 06-11-2021 11:01-0500 Body mass index (BMI) [Ratio] 23.5 kg/m2 Dr. Erica Richardosn Work Phone: [facility] Work Phone: 06-11-2021 11:01-0500 Body temperature 98.3 [degF] Dr. Erica Richardson Work Phone: [facility] Work Phone: 06-11-2021 11:01-0500 Body weight 62.[address] Erica Richardson Work Phone: [facility] Work Phone: 06-11-2021 10:01-0500 Body mass index (BMI) [Ratio] 23.5 kg/m2 Dr. Erica Richardson Work Phone: [facility] Work Phone: 06-11-2021 10:01-0500 Body temperature 98.3 [degF] Dr. Erica Richardson Work Phone: [facility] Work Phone: 06-11-2021 10:01-0500 Body weight 62.[address] Erica Richardson Work Phone: [facility] Work Phone: 05-21-2021 13:39-0500 Body mass index (BMI) [Ratio] 23.7 kg/m2 Dr. Erica Richardson Work Phone: [facility] Work Phone: 05-21-2021 13:39-0500 Body temperature 98 [degF] Dr. Erica Richardson Work Phone: [facility] Work Phone: 05-21-2021 13:39-0500 Body weight 66.[address] Erica Richardson Work Phone: [facility] Work Phone: 05-21-2021 13:39-0500 Diastolic blood pressure 69 mm[Hg] Dr. Erica Richardson Work Phone: [facility] Work Phone: 05-21-2021 13:39-0500 Heart rate 87 /min Dr. Erica Richardson Work Phone: [facility] Work Phone: 05-21-2021 13:39-0500 Respiratory rate 18 /min Dr. Erica Richardson Work Phone: [facility] Work Phone: 05-21-2021 13:39-0500 SaO2% (BldA) [Mass fraction] 100 % Dr. Erica Richardson Work Phone: [facility] Work Phone: 05-21-2021 13:39-0500 Systolic blood pressure 150 mm[Hg] Dr. Erica Richardson Work Phone: [facility] Work Phone: 04-17-2020 11:00-0500 BP Diastolic 91 mm[Hg] [place], [place] 04-17-2020 11:00-0500 BP Systolic 158 mm[Hg] [place], [place] 04-17-2020 11:00-0500 Pulse (Heart Rate) 87 /min [place], [place] 04-17-2020 11:00-0500 Pulse Oximetry 95 % [place], [place] 04-17-2020 11:00-0500 Respiratory Rate 18 /min [place], [place] 04-17-2020 08:00-0500 Body Temperature 98.4 [degF] [place], [place] Encounters Encounter Date Encounter Type Care Provider Facility Start: 09-11-2024 End: 09-11-[address] Erica Richardson DO Work Phone: [facility] Work Phone: Start: 09-11-2024 End: 09-11-[address] Erica Richardson DO -Laboratory [place] Work Phone: Start: 09-11-2024 End: 09-11-2024 ambulatory Erica Debra Facility:[facility] Start: 08-21-2024 End: 08-21-[address] Erica Richardson DO Work Phone: [facility] Work Phone: Start: 08-21-2024 End: 08-21-[address] Erica Richardson DO -Home Health Lab Start: 08-21-2024 End: 08-21-2024 [facility] Start: 08-05-2024 End: 08-05-[address] Erica Richardson DO -Laboratory, Specimen Work Phone: Start: 08-05-2024 End: 08-05-2024 [facility] Start: 07-04-2024 End: 07-04-2024 Emergency department patient visit Dr. Erica Richardson DO Work Phone: -Emergency Department Work Phone: Start: 06-04-2024 End: 06-04-[address] Erica Richardson DO -Radiology, [place] Work Phone: Start: 06-04-2024 End: 06-04-2024 ambulatory Erica [facility] Facility:[facility] Start: 05-27-2024 End: 05-27-[address] Erica Richardson DO -Laboratory, [facility] Start: 05-27-2024 End: 05-27-2024 ambulatory Erica Liborio[facility]tie Facility:[facility] Start: 04-24-2024 End: 04-24-[address] Erica [facility] Work Phone: Start: 04-24-2024 End: 04-24-2024 ambulatory Erica [facility]tie Facility:[facility] Start: 03-02-2024 End: 03-02-2024 [facility] Start: 12-18-2023 End: 12-18-2023 Emergency department patient visit Jorge Cardona Facility:[facility] Start: 12-12-2023 End: 12-12-2023 ambulatory Erica [facility]orio[facility]tie Facility:[facility] Start: 11-04-2023 End: 11-04-2023 ambulatory Lab[facility] Work Phone: Hematology/Oncology Comment on above: History of breast ca ncer (Primary Dx) Start: 10-10-2023 End: 10-10-2023 ambulatory Erica Richardson Facility:[facility] Start: 08-20-2023 End: 08-20-2023 Emergency department patient visit Dr. Erica Richardson Work Phone: [facility]-Emergency Department Work Phone: Start: 08-05-2023 End: 08-05-2023 ambulatory Lab[facility] Work Phone: Hematology/Oncology Comment on above: History of breast ca ncer (Primary Dx) Start: 05-21-2023 Non-patient / Non-visit Dr. Anny Richardson Work Phone: [facility] Work Phone: Start: 05-20-2023 Non-patient / Non-visit Dr. Anny Richardson Work Phone: [facility] Work Phone: Start: 05-19-2023 End: 05-21-2023 Evaluation and management of inpatient Dr. Erica Richardson Work Phone: [facility]-Medical Surgical 3 Work Phone: Start: 05-19-2023 Non-patient / Non-visit Dr. Anny Richardson Work Phone: [facility] Work Phone: Start: 05-09-2023 End: 05-09-2023 ambulatory ERICA RICHARDSON Facility:[facility] Start: 04-02-2023 End: 04-02-2023 ambulatory ERICA RICHARDSON Facility:[facility] Start: 11-23-2022 Telephone encounter Wu rico APRN.PITCH GATHERER Work Phone: [facility] Comment on above: Results Start: 11-22-2022 Non-patient / Non-visit Dr. Anny Richardson Work Phone: [facility] Work Phone: Start: 11-22-2022 End: 11-23-2022 Evaluation and management of inpatient [facility] Surgical 3 Work Phone: Start: 11-22-2022 End: 11-23-[address] Erica Richardson Work Phone: [facility] Work Phone: Start: 11-22-2022 End: 11-22-2022 Subsequent hospital visit by physician Xr [facility] Work Phone: Radiology Comment on above: Acute cough [R05.1] Start: 11-22-2022 End: 11-22-2022 ambulatory ERICA RICHARDSON Facility:[facility] Start: 11-22-2022 End: 11-22-2022 Patient encounter procedure Eliel Blount APRN.PITCH GATHERER Work Phone: [facility] Comment on above: Acute cough (Primary Dx); SOB (shortness of breath); Suspected COVID-19 virus infection Start: 11-14-2022 End: 11-14-2022 [facility] Start: 09-13-2022 End: 09-13-[address] Erica Richardson Work Phone: [facility] Work Phone: Start: 09-13-2022 End: 09-13-[address] [facility] Start: 08-10-2022 End: 08-10-2022 ambulatory Lab/[facility] Work Phone: Hematology/Oncology Comment on above: Malignant neoplasm o f left breast in female, estrogen receptor positive, unspecified site of breast (HCC) (Primary Dx) Start: 07-13-2022 End: 07-13-2022 ambulatory Lab/[facility] Work Phone: Hematology/Oncology Comment on above: Malignant neoplasm o f left breast in female, estrogen receptor positive, unspecified site of breast (HCC) (Primary Dx) Start: 07-02-2022 End: 07-02-2022 Emergency department patient visit Dr. Erica Richardson Work Phone: [facility]-Emergency Department Start: 06-26-2022 End: 06-26-[address] Erica Richardson Work Phone: [facility] Work Phone: Start: 06-26-2022 End: 06-26-[address] Erica Richardson Work Phone: [facility] Start: 06-15-2022 End: 06-15-2022 ambulatory Lab/[facility] Work Phone: Hematology/Oncology Comment on above: Malignant neoplasm o f left breast in female, estrogen receptor positive, unspecified site of breast (HCC) (Primary Dx) Start: 06-07-2022 Non-patient / Non-visit Dr. Anny Richardson Work Phone: [facility] Start: 06-07-2022 End: 06-07-[address] Erica Richardson Work Phone: [facility] Work Phone: Start: 06-07-2022 End: 06-07-[address] [facility] Start: 04-25-2022 End: 04-25-2022 ambulatory Lab/[facility] Work Phone: Hematology/Oncology Comment on above: Malignant neoplasm o f left breast in female, estrogen receptor positive, unspecified site of breast (HCC) (Primary Dx) Start: 03-28-2022 End: 03-28-2022 ambulatory Lab/[facility] Work Phone: Hematology/Oncology Comment on above: Malignant neoplasm o f left breast in female, estrogen receptor positive, unspecified site of breast (HCC) (Primary Dx) Start: 03-06-2022 End: 03-06-[address] Erica Richardson Work Phone: [facility] Work Phone: Start: 03-06-2022 End: 03-06-[address] Erica Richardson Work Phone: [facility] Start: 03-06-[address] Erica mejia Work Phone: [facility] Start: 03-03-2022 End: 03-03-[address] Erica Richardson Work Phone: [facility] Start: 02-27-2022 End: 02-27-[address] Erica Richardson Work Phone: [facility] Work Phone: Start: 02-27-2022 End: 02-27-[address] Erica Richardson Work Phone: [facility] Start: 02-27-[address] Erica mejia Work Phone: [facility] Start: 02-20-2022 End: 02-20-[address] Erica Richardson Work Phone: [facility] Work Phone: Start: 02-20-2022 End: 02-20-[address] Erica Richardson Work Phone: [facility] Start: 02-20-2022 Registered Referred [facility] Start: 02-13-2022 End: 02-13-2022 ambulatory [facility] Work Phone: Start: 02-13-2022 End: 02-13-2022 Departed Referred [facility] Start: 02-13-[address] [facility] Start: 02-06-2022 End: 02-06-[address] Erica Richardson Work Phone: [facility] Work Phone: Start: 02-06-2022 End: 02-06-[address] Erica Richardson Work Phone: [facility] Start: 02-06-[address] [facility] Start: 01-30-2022 End: 01-30-[address] Erica Richardson Work Phone: [facility] Work Phone: Start: 01-30-2022 End: 01-30-[address] Erica Richardson Work Phone: [facility] Start: 01-30-[address] [facility] Start: 01-22-2022 End: 01-22-[address] Erica Richardson Work Phone: [facility] Work Phone: Start: 01-22-2022 End: 01-22-[address] Erica Richardson Work Phone: [facility] Start: 01-22-[address] Erica mejia Work Phone: [facility] Start: 01-16-2022 End: 01-16-[address] Erica Richardson Work Phone: [facility] Work Phone: Start: 01-16-2022 End: 01-16-[address] Erica Richardson Work Phone: [facility] Start: 01-16-[address] Erica mejia Work Phone: [facility] Start: 01-10-2022 End: 01-10-2022 Emergency department patient visit Dr. Erica Richardson Work Phone: [facility]-Emergency Department Start: 01-09-2022 End: 01-09-2022 Patient encounter procedure All Tsang MD Work Phone: [facility] Comment on above: SDH (subdural hemato ma) (Primary Dx); Cerebral hemorrhage (HCC) Start: 01-09-2022 End: 01-09-2022 ambulatory ERICA RICHARDSON Facility:[facility] Start: 01-09-2022 End: 01-09-[address] Erica Richardson Work Phone: [facility] Start: 01-09-[address] Erica mejia Work Phone: [facility] Start: 01-04-2022 End: 01-04-2022 ambulatory Lab/[facility] Work Phone: Hematology/Oncology Comment on above: Malignant neoplasm o f left breast in female, estrogen receptor positive, unspecified site of breast (HCC) (Primary Dx) Start: 01-04-2022 End: 01-04-2022 Subsequent hospital visit by physician [facility] (I-Stat/1.5t) Work Phone: Radiology Comment on above: SDH (subdural hemato ma) (HCC) [S06.5X9A] Start: 01-03-2022 Telephone encounter Avni stephenson DO Work Phone: Hematology/Oncology Comment on above: Appointment Start: 01-02-2022 End: 01-02-[address] Erica Richardson Work Phone: [facility] Work Phone: Start: 01-02-2022 End: 01-02-[address] Erica Richardson Work Phone: [facility] Start: 01-02-[address] Erica mejia Work Phone: [facility] Start: 12-26-2021 End: 12-26-[address] Erica Richardson Work Phone: [facility] Work Phone: Start: 12-26-2021 End: 12-26-[address] Erica Richardson Work Phone: [facility] Start: 12-26-[address] Erica mejia Work Phone: [facility] Start: 12-20-2021 End: 12-20-[address] Erica Richardson Work Phone: [facility] Work Phone: Start: 12-20-2021 End: 12-20-[address] Erica Richardson Work Phone: [facility] Start: 12-20-[address] Erica mejia Work Phone: [facility] Start: 12-18-2021 End: 12-18-[address] Erica Richardson Work Phone: [facility] Work Phone: Start: 12-18-2021 End: 12-18-[address] Erica Richardson Work Phone: [facility] Start: 12-18-[address] Erica mejia Work Phone: [facility] Start: 12-12-2021 End: 12-12-[address] Erica Richardson Work Phone: [facility] Work Phone: Start: 12-12-2021 End: 12-12-[address] Erica Richardson Work Phone: [facility] Start: 12-12-[address] Erica mejia Work Phone: [facility] Start: 12-05-2021 End: 12-05-[address] Erica Richardson Work Phone: [facility] Work Phone: Start: 12-05-2021 End: 12-05-[address] Erica Richardson Work Phone: [facility] Start: 12-05-[address] Erica mejia Work Phone: [facility] Start: 12-03-2021 End: 12-03-[address] Erica Richardson Work Phone: [facility] Start: 12-01-2021 End: 12-01-[address] Erica Richardson Work Phone: [facility] Work Phone: Start: 12-01-2021 End: 12-01-[address] Erica Richardson Work Phone: [facility] Start: 12-01-[address] Erica mejia Work Phone: [facility] Start: 11-28-2021 End: 11-28-[address] Erica Richardson Work Phone: [facility] Work Phone: Start: 11-28-2021 End: 11-28-[address] Erica Richardson Work Phone: [facility] Start: 11-28-[address] Erica mejia Work Phone: [facility] Start: 11-21-2021 End: 11-21-[address] Erica Richardson Work Phone: [facility] Work Phone: Start: 11-21-2021 End: 11-21-[address] Erica Richardson Work Phone: [facility] Start: 11-21-[address] Erica mejia Work Phone: [facility] Start: 11-14-2021 End: 11-14-[address] Erica Richardson Work Phone: [facility] Start: 11-14-[address] Erica mejia Work Phone: [facility] Start: 11-09-2021 End: 11-09-[address] Erica Richardson Work Phone: [facility] Start: 11-09-[address] Erica mejia Work Phone: [facility] Start: 11-07-2021 End: 11-07-[address] Erica Richardson Work Phone: [facility] Start: 11-03-2021 End: 11-03-2021 ambulatory ERICA A MALYS Facility:[facility] Start: 11-02-2021 End: 11-02-2021 ambulatory ERICA A MALYS Facility:[facility] Start: 11-02-2021 End: 11-02-2021 Nursing evaluation of patient and report [facility] Work Phone: [facility] Comment on above: Closed fracture of m ultiple ribs with flail chest with routine healing, subsequent encounter (Primary Dx) Start: 11-02-2021 End: 11-02-2021 Subsequent hospital visit by physician Xr [facility] Comment on above: Closed fracture of m ultiple ribs of left side, initial encounter [S22.42XA] Start: 10-31-2021 End: 10-31-[address] Erica Richardson Work Phone: [facility] Start: 10-31-[address] Erica mejia Work Phone: [facility] Start: 10-30-2021 End: 10-30-2021 Subsequent hospital visit by physician [facility] (I-Stat) Work Phone: Cat Scan Comment on above: SDH (subdural hemato ma) (HCC) [S06.5X9A] Start: 10-27-2021 End: 10-27-[address] Erica Richardson Work Phone: [facility] Start: 10-25-2021 End: 10-25-[address] Erica Richardson Work Phone: [facility] Start: 10-24-2021 End: 10-24-[address] Erica Richardson Work Phone: [facility] Start: 10-24-[address] Erica mejia Work Phone: [facility] Start: 10-20-2021 Telephone encounter Sherice espino APRN.CNP Work Phone: [facility] Comment on above: Appointment Start: 10-12-2021 Telephone encounter Eugene Santos MD Work Phone: [facility] Comment on above: Patient Update Start: 10-11-2021 Orders Only Yolie braswell PA-C Work Phone: [facility] Comment on above: SDH (subdural hemato ma) (HCC) (Primary Dx) Start: 10-07-2021 End: 10-17-2021 Evaluation and management of inpatient ERICA Shannon LIBORIOHATTIE Facility:[facility] Start: 10-06-2021 End: 10-07-2021 Emergency department patient visit Dr. Erica Richardson Work Phone: [facility]Emergency Department Start: 10-03-2021 End: 10-03-2021 ambulatory Lab/[facility] Work Phone: Hematology/Oncology Comment on above: Malignant neoplasm o f left breast in female, estrogen receptor positive, unspecified site of breast (HCC) (Primary Dx) Start: 08-29-2021 End: 08-29-2021 ambulatory Lab/[facility] Work Phone: Hematology/Oncology Comment on above: Malignant neoplasm o f left breast in female, estrogen receptor positive, unspecified site of breast (HCC) (Primary Dx) Start: 08-10-2021 End: 08-10-[address] Erica Richardson Work Phone: [facility]-Outpatient Bone Densitometry Start: 08-07-2021 End: 08-07-[address] Erica Richardson Work Phone: [facility] Endocrinology Start: 08-01-2021 End: 08-01-2021 ambulatory Lab/[facility] Work Phone: Hematology/Oncology Comment on above: Malignant neoplasm o f left breast in female, estrogen receptor positive, unspecified site of breast (HCC) (Primary Dx) Start: 07-28-2021 End: 07-28-[address] Erica Richardson Work Phone: [facility]-Medical Out Start: 07-12-2021 End: 07-12-2021 Patient encounter procedure Nicho Johnson MD Work Phone: [facility] Comment on above: Otalgia, right (Prim neel Dx); Vertigo; URI, acute Start: 06-11-2021 End: 06-11-2021 Emergency department patient visit Dr. Erica Richardson Work Phone: [facility]-Emergency Department Start: 05-21-2021 End: 05-21-2021 Emergency department patient visit Dr. Erica Richardson Work Phone: [facility]-Emergency Department Start: 03-17-2021 End: 03-17-2021 Subsequent hospital visit by physician Xr [facility] Work Phone: Radiology Comment on above: Injury of left upper arm, subsequent encounter [S49.92XD] Start: 04-16-2020 End: 04-17-2020 Evaluation and management of inpatient Solomon Tenorio Work Phone: [facility] Comment on above: Traumatic subdural h ematoma with loss of consciousness of 30 minutes or less, subsequent encounter (Primary Dx) Start: 06-13-2018 ambulatory UNKNOWN PROVIDER [facility] Procedures Date Procedure Procedure Detail Performing [...] exam ches t 2 views Eliel Blount WOOL HAT FLANGER.PITCH GATHERER Work Phone: Start: 07-02-2022 CT cervical spine [...] brain stem w/o w/contrast material Sherice Rosenberg WOOL HAT FLANGER.PITCH GATHERER Work Phone: Start: 11-02-2021 Radiologic exam ches t 2 views Boaz Grimaldo PA-C Work Phone: Start: 10-30-2021 Ct head/brain w/o co ntrast material Yolie Lowe PA-C Work Phone: Start: 10-09-2021 Antibody screen ERICA RODRIGES SOFIA Comment on above: Order Comment: Speci men Type: BLOOD SPECIMENOrdering Facility: [facility] Address: [address] [place] [address] Performed By: #### T SCR ####[facility] BLOOD BANKCLIA [id number] [address] Start: 10-07-2021 Antibody screen ERICA MA SOFIA Comment on above: Order Comment: Speci men Type: BLOOD SPECIMENOrdering Facility: [facility] Address: [address] [place] [address] Performed By: #### T SCR ####[facility] BLOOD BANKCLIA [id number] [address] Start: 10-07-2021 Plain chest X-ray Dr. [...] marilee minimu m 2 views Earline Rebolledo WOOL HAT FLANGER.PITCH GATHERER Work Phone: Start: 12-08-2020 Adult depression scr eening assessment Nicho Johnson MD Work Phone: Start: 12-05-2020 Mammography Nicho jovel MD Work Phone: Start: 04-17-2020 ADD ON LAB TEST Kailee Shannon diannesparkle Anatoly ReaLinda Work Phone: Start: 04-17-2020 Ct head/brain w/o co ntrast material Catalino Ley Work Phone: Start: 04-17-2020 ADD ON LAB [...] DTaP,Tdap,Td Vaccine (2 - Td or Tdap) [facility] Start: 10-17-2024 DIABETES SCREEN DIABETES SCREEN [facility] Start: 10-17-2024 Diabetes Screening Diabetes Screenin g [facility] Start: 10-12-2024 DIABETES SCREEN DIABETES SCREEN [facility] Start: 10-11-2024 DIABETES SCREEN DIABETES SCREEN [facility] Start: 07-04-2024 [facility] Start: 07-04-2024 Venous catheter care management [facility] Start: 02-03-2024 End: 02-03-2024 ambulatory 02/03/2024 2:30 PM EDT [facility] Hematology/Oncology [address] [place] [address] Wstr, Lab/[facility] [address] [place] [address] Q3MO PORT FLUSH* Hematology/Oncology Comment on above: Q3MO PORT FLUSH* Start: 12-22-2023 Covid-19 Vaccine () Covid-19 Vaccine () [facility] Start: 12-22-2023 Covid-19 Vaccine () Covid-19 Vaccine ( season) [facility] Start: 12-22-2023 Influenza vaccination [facility] Start: 11-23-2023 BP CONTROLLED (<130/80) BP CONTROLLE D (<130/80) [facility] Start: 08-20-2023 [facility] Start: 05-21-2023 Patient discharge [facility] Start: 05-21-2023 Removal of urinary catheter [facility] Start: 05-21-2023 Urinary bladder resi dual urine study [facility] Start: 05-19-2023 Aspiration precautions [facility] Start: 05-19-2023 Assessment of risk o f venous thromboembolism [facility] Start: 05-19-2023 Fall prevention [facility] Start: 05-19-2023 Inhalation therapy procedure [facility] Start: 05-19-2023 Insertion of cathete r into peripheral vein [facility] Start: 05-19-2023 Introduction of urin neel catheter [facility] Start: 05-19-2023 Measuring intake and output [facility] Start: 05-19-2023 Oxygen therapy [facility] Start: 05-19-2023 Providing care accor ding to standard [facility] Start: 05-19-2023 Provision of activit y privileges [facility] Start: 05-19-2023 Referral to occupati onal therapist [facility] Start: 05-19-2023 Referral to service [facility] Start: 05-19-2023 Speech therapy assessment [facility] Start: 05-19-2023 [facility] Start: 05-19-2023 Following clinical pathway protocol [facility] Start: 05-19-2023 Hospital admission, emergency, from emergency room, medical nature [facility] Start: 05-19-2023 Legionella pneumophi la Ag [Presence] in Urine [facility] Start: 05-19-2023 Streptococcus pneumo niae antigen assay [facility] Start: 05-19-2023 Verification routine [facility] Start: 05-19-2023 Admission procedure [facility] Start: 05-18-2023 End: 05-19-2023 Blood culture [facility] Start: 05-18-2023 Partial thromboplast in time, activated [facility] Start: 05-18-2023 Prothrombin time [facility] Start: 05-18-2023 End: 05-18-2023 [facility] Start: 05-18-2023 Bacteria identified in Blood by Culture Blood Culture [facility] Start: 05-18-2023 Bacteria identified in Urine by Culture [facility] Start: 04-22-2023 Advance Directive Discussion Advance Directive Discussion [facility] Start: 04-22-2023 Behavioral Health Screening Behavioral Health Screening [facility] Start: 01-09-2023 BP CONTROLLED (<130/80) BP CONTROLLE D (<130/80) [facility] Start: 12-21-2022 Covid-19 Vaccine () Covid-19 Vaccine () [facility] Start: 12-21-2022 Influenza vaccination [facility] Start: 11-23-2022 Patient discharge [facility] Start: 11-23-2022 Venous catheter care management [facility] Start: 11-23-2022 Respiratory secretio n precautions [facility] Start: 11-22-2022 Physiotherapy of chest [facility] Start: 11-22-2022 Ambulation without limitation [facility] Start: 11-22-2022 Assessment of risk o f venous thromboembolism [facility] Start: 11-22-2022 Incentive spirometry [facility] Start: 11-22-2022 Insertion of cathete r into peripheral vein [facility] Start: 11-22-2022 Measuring intake and output [facility] Start: 11-22-2022 Oxygen therapy [facility] Start: 11-22-2022 Providing care accor ding to standard [facility] Start: 11-22-2022 Referral to occupati onal therapist [facility] Start: 11-22-2022 Referral to service [facility] Start: 11-22-2022 [facility] Start: 11-22-2022 Following clinical pathway protocol [facility] Start: 11-22-2022 Admission procedure [facility] Start: 11-22-2022 Verification routine [facility] Start: 11-22-2022 [facility] Start: 08-03-2023 Inhalation therapy procedure [facility] Start: 11-03-2022 BP CONTROLLED (<130/80) BP CONTROLLE D (<130/80) [facility] Start: 11-02-2022 BP CONTROLLED (<130/80) BP CONTROLLE D (<130/80) [facility] Start: 10-07-2022 Influenza vaccination LUNG CANCER SC REENING [facility] Start: 10-07-2022 Screening for malign ant neoplasm of lung Lung Cancer Screening [facility] Start: 10-05-2022 DIABETES SCREEN DIABETES SCREEN [facility] Start: 07-02-2022 Simple repair f/e/e/ n/l/m 2.6cm-5.0 cm RPR F/E/E/N/L/M 2.6-5.0 CM [facility] Start: 04-22-2022 ADVANCE DIRECTIVE DISCUSSION ADVANCE DIRECTIVE DISCUSSION [facility] Start: 04-22-2022 DEPRESSION ASSESSMENT DEPRESSION ASS ESSMENT [facility] Start: 02-02-2022 End: 12-02-2022 Radiologic exam chest 2 views XR CHEST 2V FRONTAL/LAT Radiology Routine Closed fracture of multiple ribs with flail chest with routine healing, subsequent encounter Expected: 02/02/2022, Expires: 12/02/2022 [facility] Work Phone: Comment on above: Expected: 02/02/2022 , Expires: 12/02/2022 Start: 01-10-2022 Simple repair scalp/neck/ax/genit/trunk 2.5cm/< RPR S/N/AX/GEN/TRNK 2.5CM/< [facility] Work Phone: Start: 12-21-2021 Influenza vaccination INFLUENZA (#1) [facility] Start: 12-08-2021 Adult depression screening assessment DEPRESSION SCREENING [facility] Start: 12-05-2021 Mammography MAMMOGRAM [facility] Start: 2021 RSV Vaccine (1 - 1-d ose 75+ series) RSV Vaccine (1 - 1-dose 75+ series) [facility] Start: 10-25-2021 End: 11-10-2022 Ct head/brain w/o contrast material CT BRAIN WO IVCON Radiology Routine SDH (subdural hematoma) (HCC) Expected: 10/25/2021, Expires: 11/10/2022 [facility] Work Phone: Comment on above: Expected: 10/25/2021 , Expires: 11/10/2022 Start: 10-07-2021 Plain chest X-ray Chest 1 View (Port able) [facility] Work Phone: Start: 10-07-2021 XR Chest Single view [facility] Work Phone: Start: 10-06-2021 Perq drainage pleura insert cath w/o imaging INSERT CATH PLEURA W/O IMAGE [facility] Work Phone: Start: 04-22-2021 ADVANCE DIRECTIVE DISCUSSION ADVANCE DIRECTIVE DISCUSSION [facility] Start: 04-22-2021 DEPRESSION ASSESSMENT DEPRESSION ASS ESSMENT [facility] Start: 12-21-2020 COVID-19 VACCINE (3 - Booster for Moderna series) COVID-19 VACCINE (3 - Booster for Moderna series) [facility] Start: 10-05-2020 Influenza vaccination LUNG CANCER SC REENING [facility] Start: 09-15-2020 COVID-19 VACCINE (3 - Booster for Moderna series) COVID-19 VACCINE (3 - Booster for Moderna series) [facility] Start: 09-15-2020 COVID-19 VACCINE (3 - Moderna series) COVID-19 VACCINE (3 - Moderna series) [facility] Start: 05-09-2020 End: 04-17-2021 CT Head WO Contrast CT Head WO Contrast Imaging Routine Traumatic subdural hematoma with loss of consciousness of 30 minutes or less, subsequent encounter Expected: 05/09/2020 (Approximate), Expires: 04/17/2021 [facility] [place] Comment on above: Expected: 05/09/2020 (Approximate), Expires: 04/17/2021 Start: 11-07-2011 Pneumococcal Vaccine : 65+ (1 of 1 - PCV) Pneumococcal Vaccine: 65+ (1 of 1 - PCV) [facility] Start: 11-07-2011 PNEUMOCOCCAL: 65+ (1 - PCV) PNEUMOCOCCAL: 65+ (1 - PCV) [facility] Start: 11-07-2011 PNEUMOVAX AGE 65 AND OVER WITH 5YR LOOKBACK (#1) PNEUMOVAX AGE 65 AND OVER WITH 5YR LOOKBACK (#1) [facility] Start: 2006 RSV Vaccine (1 - 1-d ose 60+ series) RSV Vaccine (1 - 1-dose 60+ series) [facility] Start: 1996 SHINGRIX VACCINE (1 of 2) VEGA GRIX VACCINE (1 of 2) [facility] Start: 11-07-1991 COLOGUARD (FIT-DNA) COLOGUARD (FIT-D NA) [facility] Start: 11-07-1991 Colonoscopy COLONOSCOPY [facility] Start: 11-07-1991 COLORECTAL CANCER SCREENING COLORECTAL CANCER SCREENING [facility] Start: 11-07-[address] COLONOGRAPHY [facility] Start: 11-07-1991 FECAL OCCULT BLOOD FECAL OCCULT BLOO D [facility] Start: 11-07-1991 LIPID SCREEN LIPID SCREEN [facility] Start: 11-07-1991 SIGMOIDOSCOPY SIGMOIDOSCOPY [facility] Start: 1965 SHINGRIX VACCINE (1 of 2) VEGA GRIX VACCINE (1 of 2) [facility] Start: 1965 Urine microalbumin profile DTAP,TDAP,TD (1 - Tdap) [facility] Start: 1964 ANNUAL PCP TEAM CHILD CUSTODY EVALUATOR ALICIA DISEASE VISIT ANNUAL PCP TEAM CHRONIC DISEASE VISIT [facility] Start: 1964 BP CONTROLLED (<130/80) BP CONTROLLE D (<130/80) [facility] Start: 1964 Depression Screening Depression Scre ening [facility] Start: 1964 HEPATITIS C SCREENING HEPATITIS C [facility] Start: 1964 Hepatitis C screening Hepatitis C [facility] Start: 1952 PNEUMOCOCCAL: 65+ (1 - PCV) PNEUMOCOCCAL: 65+ (1 - PCV) [facility] End: 04-17-2020 aPTT Coag (Bld) [Time] APTT Lab STAT One Time for 1 Occurrences starting 04/17/2020 until 04/17/2020 [facility] [place] Comment on above: One Time for 1 Occur rences starting 04/17/2020 until 04/17/2020 aPTT in Platelet poo r plasma by Coagulation assay [facility] Bacteria identified in Sputum by Respiratory culture [facility] Basic Metabolic Pane l w/ Reflex to MG Basic Metabolic Panel w/ Reflex to MG Lab Routine Daily until discontinued starting 04/16/2020, 2 [facility] Comment on above: Daily until disconti nued starting 04/16/2020, 2 completed CBC auto differential CBC auto d ifferential Lab Routine Daily until discontinued starting 04/16/2020, 2 completed [facility] BRODY Comment on above: Daily until disconti nued starting 04/16/2020, 2 completed EKG 12 Lead EKG 12 Lead ECG Routine 04/16/2020 11:45 AM EST [facility] INR in Platelet poor plasma by Coagulation assay [facility] Magnesium [Mass/volu me] in Serum or Plasma [facility] Microscopic observat ion [Identifier] in Unspecified specimen by Gram stain [facility] Oxygen therapy [[facility] Data Set] Initiate Oxygen Therapy Protocol Respiratory Care Routine Daily until discontinued starting 04/16/2020 [facility] Comment on above: Daily until disconti nued starting 04/16/2020 Patient Education [facility] Work Phone: Patient referral [facility] Work Phone: Phosphate [Mass/Vol] Phosphorus Lab Routine Daily until discontinued starting 04/17/2020, 1 completed [facility] Comment on above: Daily until disconti nued starting 04/17/2020, 1 completed Radiologic exam ches t 2 views XR CHEST 2V FRONTAL/LAT Radiology Routine Closed fracture of multiple ribs of left side, initial encounter Lung laceration, subsequent encounter 11/02/2021 12:32 PM EDT [facility] Work Phone: SARS-CoV-2 (COVID-19 ) RNA [Presence] in Respiratory specimen by LEONA with probe detection 2019 CORONAVIRUS Microbiology Routine Acute cough SOB (shortness of breath) Suspected COVID-19 virus infection 11/22/2022 12:45 PM EDT [facility] Work Phone: Serum inorganic phos phate measurement [facility] End: 04-16-2020 Speech and language therapy regime Speech language pathology evaluation MACHINE TENDER Routine One Time for 1 Occurrences starting 04/16/2020 until 04/16/2020 [facility] Comment on above: One Time for 1 Occur rences starting 04/16/2020 until 04/16/2020 End: 04-18-2020 Vitamin D 25 Hydroxy Vitamin D 25 Hydroxy Lab Routine Tomorrow AM for 1 Occurrences starting 04/18/2020 until 04/18/2020 [facility] [place] Comment on above: Tomorrow AM for 1 Oc currences starting 04/18/2020 until 04/18/2020 [facility] Immun[facility] Immunization Date Immunization Notes Care Provider Fa [facility] 12-18-2023 tetanus toxoid, reduced diphtheria toxoid, and acellular pertussis vaccine, adsorbed Dr. Erica Richardson DO Work Phone: [facility] 08-20-2023 tetanus toxoid, reduced diphtheria toxoid, and acellular pertussis vaccine, adsorbed Dr. Erica Richardson Work Phone: [facility] 03-09-2021 influenza, injectabl e, quadrivalent, preservative free Dr. Erica Richardson Work Phone: [facility] 03-09-2021 influenza, seasonal, injectable Dr. Erica Richardson Work Phone: [facility] 03-09-2021 influenza virus vaccine, unspecified formulation Lab/Port Wstr Work Phone: [facility] 07-27-2020 Covid (Moderna) Dr. Erica kuhn Work Phone: [facility] 07-21-2020 COVID-19 vaccine, fu ll dose (MODERNA) Nicho Johnson MD Work Phone: [facility] 06-29-2020 Covid (Moderna) Dr. Erica kuhn Work Phone: [facility] 06-24-2020 COVID-19 vaccine, fu ll dose (MODERNA) Nicho Johnson MD Work Phone: [facility] 02-09-[address] Erica Richardson Work Phone: [facility] 09-11-[address] Elena Richardson Work Phone: [facility] Work Phone: 09-11-2019 pneumococcal vaccine , unspecified formulation [facility] 06-16-2019 tetanus toxoid, reduced diphtheria toxoid, and acellular pertussis vaccine, adsorbed Dr. Erica Richardson Work Phone: [facility] 01-23-2019 influenza, high dose seasonal, preservative-free Nicho Johnson MD Work Phone: [facility] NEGATED: Highlighted row has not occurred!04-17-2020 tetanus and diphtheria toxoids, adsorbed, preservative free, for adult use (5 Lf of tetanus toxoid and 2 Lf of diphtheria toxoid) [place], [place] Payers Date Payer Category Payer Self-pay [id number] 2016 Unknown ARJUN DÍAZ ME DICARE SUPPLEMENT [id number] 2016-Present [phone] [address] [place] [address] Indemnity [id number] 2016 Unknown ARJUN DÍAZ ME DICARE SUPPLEMENT [id number] 2016-Present [phone] [address] Indemnity [id number] 2012 Unknown [id number] 2011 Medicare MEDICARE MEDICAR E A AND B [id number] 2011-Present [phone] [address] [address] [place] [address] Medicare [id number] 2011 Medicare MEDICARE MEDICAR E A AND B [id number] 2011-Present [phone] [place] [address] Medicare [id number] 2011 Medicare [id number] Unknown [id number] 2 Unknown [id number] 2 Unknown [id number] 2 Unknown [id number] 2 Unknown [id number] 2 Unknown [id number] 2 Unknown [id number] 2 Unknown [id number] 2 Unknown [id number] 2 Unknown [id number] 2 Unknown [id number] 2 Social History Date Type Detail Facility Start: 04-17-2020 End: 07-04-2024 Tobacco smoking status NHIS Former smoker [facility] Start: 02-20-1979 End: 02-20-2019 History of tobacco use Current smoker [place], [place] Start: 03-29-2020 End: 04-17-2020 Cigarettes smoked current (pack per day) - Reported [facility] Start: 05-01-2019 End: 04-17-2020 Tobacco use and exposure Never used [place], [place] Start: 04-17-2020 Alcohol intake Current drinke r of alcohol (finding) [place] Start: 04-16-2020 Alcohol Comment 2-3 times a week [place], [place] Start: 1945 Sex Assigned At Not on file M [place], [place] Start: 02-15-2021 End: 01-09-2022 Exposure to SARS-CoV-2 (event) Not sure [place] Start: 02-20-1979 End: 02-20-2019 History of tobacco use Cigarette Smoker [facility] Start: 01-12-2021 End: 07-12-2021 Alcohol intake Current non-drinker of alcohol (finding) [facility] Start: 08-07-2021 End: 08-20-2023 Tobacco smoking status NHIS Unknown if ever smoked [facility] Start: 03-11-2020 Heavy [facility] Start: 03-10-2020 None [facility] Start: 03-11-2020 Alone [facility] Start: 09-01-2019 Cigarettes [facility] Start: 1945 Sex Assigned At Female W [facility] Start: 03-29-2020 End: 11-22-2022 Tobacco use panel [facility] National Score (1-10 0), lower number is lower risk 99 [facility] Start: 07-04-2024 Sex Female (finding) [facility] Medical Equipment Procedure Code Equipment Code Equipment Origin al Text Equipment Identifier Dates Afc-Uq-I-Kind Implant - [id number] Start: 06-10-2015 Comment on above: Description: 3.5mm L CP plate 6 hole 85mm length [id number] PLATE Rdm-Eu-C-Kind Implant - [id number] Start: 06-10-2015 Comment on above: Description: DBX Put ty 0.5cc Screw [id number] Start: 06-13-2018 Plate Philos Standard Stainless Steel 90mm Bone 3 Hole Locking Compression - [id number] Start: 06-13-2018 Port Implantable Power Port 6fr - [id number] Start: 06-30-2012 Comment on above: Description: POWERPO RT Screw Lc-Dcp Dcp 3.5mm 6mm Full Thread Stainless Steel 14mm Bone Self Tap - [id number] Start: 06-10-2015 Screw Lcp 3.5mm Full Thread Stainless Steel 14mm Bone Stardrive Recess Self - [id number] Start: 06-10-2015 Screw Lc-Dcp Dcp 3.5mm 6mm Full Thread Stainless Steel 16mm Bone Self - [id number] Start: 06-10-2015 Screw 3.7mm T15 Full Thread Stainless Steel 36mm Bone Self Drill Cannulated - [id number] Start: 06-13-2018 Screw Lcp 3.5mm Full Thread Stainless Steel 26mm Bone Stardrive Recess Self - [id number] Start: 06-13-2018 Screw Dcp Lc-Dcp 3.5mm Stainless Steel 28mm Bone Self Tapping Hexagonal - [id number] Start: 06-13-2018 Screw 3.7mm Full Thread T15 Stainless Steel 38mm Bone Self Drill Cannulated - [id number] Start: 06-13-2018 Screw Lcp 3.5mm Stainless Steel 26mm Bone Self Tapping Small Fragment - [id number] Start: 06-13-2018 Screw 3.7mm T15 Full Thread Stainless Steel 50mm Bone Self Drill Cannulated - [id number] Start: 06-13-2018 Screw 3.7mm T15 Full Thread Stainless Steel 40mm Bone Self Drill Cannulated - [id number] Start: 06-13-2018 Plate Straight Eight Hole [id number] Start: 10-09-2021 Plate Pre-Contou red Sixteen Hole [id number] Start: 10-09-2021 Screw Locking Self-Drilling 2.4mm X 8mm [id number] Start: 10-09-2021 Cap Locking Larg e Bone Screw 323.1205 [id number] Start: 10-09-2021 Washer 9.5mm 323.1290 [id number] Start: 10-09-2021 Advatagerib Shor t Bridge 60mm W/23mm Locking Posts [id number] Start: 10-09-2021 2.7mm X 8mm Resc ue Locking Screw - [id number] Start: 10-09-2021 Goals Date Patient Goal Desired Activity /State Functional Status Date Assessment Result Facility 05-21-2023 Functional status Ambulates [facility] Work Phone: 11-23-2022 Functional status Ambulates;Bathroom Priv ilege [facility] Work Phone: Mental Status Date Assessment Result Facility 07-04-2024 Cognitive function Level Of Cons ciousness Awake;Alert;Appropriate [facility] Work Phone: 05-21-2023 Cognitive function Voice/Name [facility] Work Phone: 05-18-2023 Cognitive function Voice/Name [facility] Work Phone: 11-23-2022 Cognitive function Cooperative;Talkative [facility] Work Phone: 06-11-2021 Cognitive function Level Of Cons ciousness Awake;Alert;Appropriate;Follow s Commands [facility] Work Phone: Clinical Notes 07-17-2012 to 07-04-2024 Note Date & Type Note Facility 07-04-2024 Radiology Diagnostic study note [facility] Imaging Services [address] [place] [address] Chest PA and Lateral MR#: [id number] Acct: [id number] Name: AIDEN FIELDS Consuelo Rep #: [id number] : 1945 F 78 From: Abhi Carrington DO PCP: Dr. Erica Richardson DO Status: REG ER Study:Chest PA and Lateral Date of Exam: 07/04/24 Exam# [id number] Ordering Dr: Froy Cameron DO PROCEDURE: CHEST [...] Cameron DO; Dr. Erica Richardson DO ~ Temperature Regulator: Signed [facility] 08-20-2023 Discharge summary Note Date/Time August 20, 2023 1:03pm [facility] Medical Records Department [address] [place] [address] Emergency Department Summary 08/20/23 MR#: [id number] Acct: [id number] Name: AIDEN FIELDS Rep #:[id number] : 1945 77 From: Seb Nguyen PCP: [...] Unknown Unknown Verified 08/20/23 12:28 [From Neosporin (ivi-kuw-jmlmc)] neomycin Allergy Unknown Unknown Verified 08/20/23 12:28 [From Neosporin (elt-xmv-zangf)] polymyxin B Allergy Unknown Unknown Verified 08/20/23 12:28 [From Neosporin (zxq-clt-hnggx)] Antihistamines - Alkylamine Allergy PT UNSURE Verified [...] Oxygen Delivery Method Room Air Room Air [facility] [place] Narrative Medical decision making narrative: HISTORY OF [...] Discharge home This note was generated with S[employer] dictation software. It may contain incorrectwords, spelling, [...] problems, contact your Primary Care Provider. Call [facility] ([phone]) or report to the closest Emergency Room. Call 911 if necessary. 08/20/23 1647 <Electronically signed by Seb Bautista DO> Cosigner Signature (if applicable): CC: Dr. Erica Richardson, ~ Signed [facility] Work Phone: 1(470) 668-806201-30-2024 Consult note Author Aryan Harris [facility] May 21, 2023 10:55am Note Date/Time May 21, 2023 1 0:56am [facility] Medical Records Department [address] [place] [address] Counseling Note - Pharmacy 05/21/23 1055 MR#: [id number] Acct: [id number] Name: DIAMONDAIDEN Consuelo Rep #:[id number] : 1945 77 From: Aryan Harris PCP: Dr. Erica Richardson DO Status:ADM IN Y Location: [place] [address] Pharmacy [facility] has performed discharge medication reconciliation [...] Signature (if applicable): Date CC: ~ Signed [facility] Work Phone: 1(855) 944-203001-30-2024 Discharge summary Author Froy Velázquez [facility] May 21, 2023 10:34am Note Date/Time May 21, 2023 1 0:31am [facility] Medical Records Department [address] [place] [address] Discharge Summary 05/21/23 1030 MR#: [id number] Acct: [id number] Name: AIDEN FIELDS Rep #:[id number] : 1945 77 From: Froy Velázquez DO PCP: Dr. Erica Richardson DO Status:ADM IN Location: [facility] LL308-8 Providers Date of Admission: 05/19/23 Primary Care [...] with rheumatology as needed. DC home with [facility]. Medications at Discharge Home Medications potassium chloride [...] Health Service Charges/Coding Visit Charges Inpatient E&M: 87934 Disch Hosp >30min 05/21/23 1034 <Electronically signed by Froy Velázquez DO> Cosigner Signature (if applicable): CC: Dr. Froy Velázquez DO; Dr. Erica Richardson DO~ Signed [facility] Work Phone: 1([phone]) 924-482501-30-2024 Progress note Author Froy Velázquez [facility] May 21, 2023 10:30am Note Date/Time May 21, 2023 8 :27am [facility] Medical Records Department [address] [place] [address] Progress Note - Hospitalist 05/21/23 0823 MR#: [id number] Acct: [id number] Name: AIDEN FIELDS Rep #:[id number] : 1945 77 From: Froy Velázquez DO PCP: Dr. Erica Richardson DO Status:ADM IN Location: [facility] KE819-1 Reason for Visit Reason for Visit: Diagnoses [...] with rheumatology as needed. DC home with [facility]. 05/21/23 1030 <Electronically signed by Froy Velázquez DO> Cosigner Signature (if applicable): CC: ~ Signed [facility] Work Phone: 1(239) 297-550801-29-2024 Progress note Author Froy Velázquez [facility] May 20, 2023 2:08pm Note Date/Time May 20, 2023 9 :07am [facility] Medical Records Department [address] [place] [address] Progress Note - Hospitalist 05/20/23 09 MR#: [id number] Acct: [id number] Name: AIDEN FIELDS Rep #:[id number] : 1945 77 From: Froy Velázquez DO PCP: Dr. Erica Richardson, DO Status:ADM IN Location: [facility] BC721-8 Subjective Subjective Feels well. No issues overnight. 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 Charges/Coding Visit Charges Inpatient E&M: 93240 Subs Hosp L2 05/20/23 1403 <Electronically signed by Froy Velázquez DO> Cosigner Signature (if applicable): CC: ~ Signed [facility] Work Phone: 1(210) 343-414801-28-2024 Progress note Author Vernon Osman [facility] May 19, 2023 8:02am Note Date/Time May 19, 2023 7 :06am [facility] Medical Records Department [address] [place] [address] Progress Note 05/19/23 0706 MR#: [id number] Acct: [id number] Name: AIDEN FIELDS Rep #:[id number] : 1945 77 From: Vernon Osman MD PCP: Dr. Erica Richardson, DO Status:ADM [facility] Patient is a 77-year-old lady [...] Cosigner Signature (if applicable): CC: ~ Signed [facility] Work Phone: 1(329) 653-892601-28-2024 Discharge summary [facility] May 19, 2023 2:16am Note Date/Time May 19, 2023 1 2:30am [facility] Medical Records Department [address] [place] [address] Emergency Department Summary 05/19/23 MR#: [id number] Acct: [id number] Name: AIDEN FIELDS Rep #:[id number] : 1945 77 From: Jorge Cardona MD [...] hypoxia due to rhinovirus.) [facility] Medical History (Updated 05/19/23 @ 02:16 by [...] Unknown Unknown Verified 05/18/23 23:29 [From Neosporin (nbt-ncm-tfbun)] neomycin Allergy Unknown Unknown Verified 05/18/23 23:29 [From Neosporin (njr-mhh-zwgvt)] polymyxin B Allergy Unknown Unknown Verified 05/18/23 23:29 [From Neosporin (dvu-fmg-mepcq)] Antihistamines - Alkylamine Allergy PT UNSURE Verified [...] 89.8 H Lymph % (Auto) 6.3 L [place] % (Auto) 2.4 Eos % (Auto) 0.3 [...] Clarity Cloudy Urine pH 6.0 Ur Specific [place] 1.010 Urine Protein 100 H Urine Glucose [...] follows: Interpretation: Sinus Tachycardia (Rate is 111. [place] interval is 114 ms. Cures duration 70 ms. QT duration is 298 ms. [place] is normal. Computer is reading ST-T wave [...] with treatment for hypertension), Discussing w/Patient &/or Family/Integrated Specialist, Discussing w/Consultants and Arranging Admission or Transfer Discharge Plan Dx/Rx/DC Orders Clinical Impression: Acute hypoxic respiratory failure, Pyuria, SIRS (systemic inflammatory responsesyndrome), Encephalopathy due to infection, Ketosis, Acute hypotension, Creatinine elevation Disposition Disposition: Acute Care Hospital [facility] What to do if you have Problems For any increased pain, shortness of breath, bleeding, nausea or vomiting, chestpain, or any unexpected problems, contact your Primary Care Provider. Call [facility] ([phone]) or report to the closest Emergency Room. Call 911 if necessary. 05/19/23 0216 <Electronically signed by Jorge Cardona MD> Cosigner Signature (if applicable): CC: Dr. Erica Richardson, ~ Signed [facility] Work Phone: 1(378) 627-496401-28-2024 History and physical note Author Aggie Bolton [facility] May 19, 2023 1:45am Note Date/Time May 19, 2023 1 :39am [facility] Medical Records Department [address] [place] [address] H&P Exam - Hospitalist 05/19/23 0135 MR#: [id number] Acct: [id number] Name: AIDEN FIELDS Rep #:[id number] : 1945 77 From: Aggie Bolton MD [...] of prior records who presents to the [facility] ED on 05/19/23 with significant encephalopathy with [...] and azithromycin 500 mg IV x 1. [facility] Medical History (Updated 05/19/23 @ 01:44 by [...] Unknown Unknown Verified 05/18/23 23:29 [From Neosporin (jqn-ogg-jqqop)] neomycin Allergy Unknown Unknown Verified 05/18/23 23:29 [From Neosporin (qwv-pxm-mpilg)] polymyxin B Allergy Unknown Unknown Verified 05/18/23 23:29 [From Neosporin (pxx-jnd-ptunq)] Antihistamines - Alkylamine Allergy PT UNSURE Verified [...] 89.8 H, Lymph % (Auto) 6.3 L, [place] % (Auto) 2.4, Eos % (Auto) 0.3, [...] Urine Clarity Cloudy, Urine pH6.0, Ur Specific [place] 1.010, Urine Protein 100 H, Urine Glucose [...] review of prior recordswho presents to the [facility] with significant encephalopathy with [...] prophylaxis: Heparin. Charges/Coding Visit Charges Inpatient E&M: 03091 Init Hosp L3 05/19/23 0145 <Electronically signed by Aggie Bolton MD> Cosigner Signature (if applicable): CC: Dr. Aggie Bolton MD; Dr. Erica Richardson DO~ Signed [facility] Work Phone: 1([phone]) 986-358401-28-2024 Discharge summary Author Jorge Cardona [facility] May 19, 2023 2:16am Note Date/Time May 19, 2023 1 2:30am [facility] Medical Records Department [address] [place] [address] Emergency Department Summary 05/19/23 MR#: [id number] Acct: [id number] Name: AIDEN FIELDS Rep #:[id number] : 1945 77 From: Jorge Cardona MD [...] due to rhinovirus.) Recent Illness/Hospitalization: No [facility] Medical History (Updated 05/19/23 @ 02:16 by [...] Unknown Unknown Verified 05/18/23 23:29 [From Neosporin (paz-bdf-misiv)] neomycin Allergy Unknown Unknown Verified 05/18/23 23:29 [From Neosporin (ozv-uzs-ivmqd)] polymyxin B Allergy Unknown Unknown Verified 05/18/23 23:29 [From Neosporin (iql-ugs-yreqg)] Antihistamines - Alkylamine Allergy PT UNSURE Verified [...] 89.8 H Lymph % (Auto) 6.3 L [place] % (Auto) 2.4 Eos % (Auto) 0.3 [...] Clarity Cloudy Urine pH 6.0 Ur Specific [place] 1.010 Urine Protein 100 H Urine Glucose [...] follows: Interpretation: Sinus Tachycardia (Rate is 111. [place] interval is 114 ms. Cures duration 70 ms. QT duration is 298 ms. [place] is normal. Computer is reading ST-T wave [...] with treatment for hypertension), Discussing w/Patient &/or Family/Integrated Specialist, Discussing w/Consultants and Arranging Admission or Transfer Discharge Plan Dx/Rx/DC Orders Clinical Impression: Acute hypoxic respiratory failure, Pyuria, SIRS (systemic inflammatory responsesyndrome), Encephalopathy due to infection, Ketosis, Acute hypotension, Creatinine elevation Disposition Disposition: [facility] What to do if you have Problems For any increased pain, shortness of breath, bleeding, nausea or vomiting, chestpain, or any unexpected problems, contact your Primary Care Provider. Call [facility] ([phone]) or report to the closest Emergency Room. Call 911 if necessary. 05/19/23215 <Electronically signed by Jorge Cardona MD> Cosigner Signature (if applicable): CC: Dr. Erica Richardson, ~ Signed [facility] Work Phone: 1(232) 216-541912-12-2023 NoteHNO ID: [id number] Author: Radha Suarez RN Service: ? Author Type: Registered Nurse Type: Progress Notes Filed: 04/02/2023 2:59 PM Note Text: Patient is here for IVAD port flush per [facility] protocol. IVAD is located in right upper chest. Site cleansed with Chloraprep IVAD accessed with a #20 gauge 3/4 non-coring Gripper needle Blood Return: Good Flushed with: 20 ml Normal Saline and 5 ml Heparin Lock Flush Non-coring needle removed. Paper tape applied to puncture site. Port site negative for redness, edema or tenderness. Patient tolerated procedure well.[facility]08-04-2023 Miscellaneous Notes* Telephone Encounter - Melissa Sprague [...] as discussed during visit. documented in this encounterOhiohealth [facility]ert [facility]08-03-2023 History and physical note Author Bandar Chanel [facility] November 22, 2022 7:40pm Note Date/Time November 22, 2022 6:0 8pm [facility] Medical Records Department [address] [place] [address] H&P Exam - Hospitalist 11/22/22 1804 MR#: [id number] Acct: [id number] Name: AIDEN FIELDS Rep #:[id number] : 1945 77 From: Bandar Mckenna PCP: Dr. 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 [facility] Medical History Alcohol abuse Alcohol intoxication Anemia [...] Unknown Unknown Verified 11/22/22 12:44 [From Neosporin (xyj-vcb-agwlg)] neomycin Allergy Unknown Unknown Verified 11/22/22 12:44 [From Neosporin (nlg-yiy-ypyhc)] polymyxin B Allergy Unknown Unknown Verified 11/22/22 12:44 [From Neosporin (lbg-cnq-dcglh)] Antihistamines - Alkylamine Allergy PT UNSURE Verified [...] (Auto) 64.5, Lymph % (Auto) 15.4 L, [place] % (Auto) 12.3 H, Eos % (Auto) [...] shock if needed Total time spent in nuwi-gd-xzzf encounter in discussion of advanced directive 17 [...] (Auto) 64.5, Lymph % (Auto) 15.4 L, [place] % (Auto) 12.3 H, Eos % (Auto) [...] EDT , Charges/Coding Visit Charges Inpatient E&M: 44027 Init Hosp L3 Procedures Hospitalists Procedures: 14580 Advncd Care Plan 30 Min 11/22/221939 <Electronically signed by Bandar Chanel MD> Cosigner Signature (if applicable): CC: Dr. Erica Richardson DO; Dr. Bandar Chanel MD~ Signed [facility] Work Phone: 1(162) 969-541008-03-2023 Discharge summary Author Katie [place] November 22, 2022 4:54pm Note Date/Time November 22, 2022 1:0 9pm [facility] Medical Records Department [address] [place] [address] Emergency Department Summary 11/22/22 MR#: [id number] Acct: [id number] Name: AIDEN FIELDS Rep #:[id number] : 1945 77 From: Katie Nguyen PCP: [...] other complaints or concerns at this time. [facility] Medical History Alcohol abuse Alcohol intoxication Anemia [...] Unknown Unknown Verified 11/22/22 12:44 [From Neosporin (rlw-pil-vbsmw)] neomycin Allergy Unknown Unknown Verified 11/22/22 12:44 [From Neosporin (uak-mpo-gayja)] polymyxin B Allergy Unknown Unknown Verified 11/22/22 12:44 [From Neosporin (tel-jkq-mbdqj)] Antihistamines - Alkylamine Allergy PT UNSURE Verified [...] her renal function is normal, no significant [place] abnormalities and she has a mild anemia [...] (Auto) 64.5 Lymph % (Auto) 15.4 L [place] % (Auto) 12.3 H Eos % (Auto) [...] Provider] - Disposition Disposition: Acute Care Hospital [facility] What to do if you have Problems For any increased pain, shortness of breath, bleeding, nausea or vomiting, chestpain, or any unexpected problems, contact your Primary Care Provider. Call [facility] ([phone]) or report to the closest Emergency Room. Call 911 if necessary. 11/22/22 1654 <Electronically signed by Katie Randle DO> Cosigner Signature (if applicable): CC: Dr. Erica Richardson DO ~ Signed [facility] Work Phone: 1(267) 245-124608-03-2023 Discharge summary Author Katie Randle [facility] November 22, 2022 4:54pm Note Date/Time November 22, 2022 1:0 9pm [facility] Medical Records Department [address] [place] [address] Emergency Department Summary 11/22/22 MR#: [id number] Acct: [id number] Name: DIAMONDAIDEN Consuelo Rep #:[id number] : 1945 77 From: Katie Nguyen PCP: [...] other complaints or concerns at this time. [facility] Medical History Alcohol abuse Alcohol intoxication Anemia [...] Unknown Unknown Verified 11/22/22 12:44 [From Neosporin (tge-zof-yyoin)] neomycin Allergy Unknown Unknown Verified 11/22/22 12:44 [From Neosporin (rjk-tlu-jewvf)] polymyxin B Allergy Unknown Unknown Verified 11/22/22 12:44 [From Neosporin (chu-hrn-copuj)] Antihistamines - Alkylamine Allergy PT UNSURE Verified [...] her renal function is normal, no significant [place] abnormalities and she has a mild anemia [...] (Auto) 64.5 Lymph % (Auto) 15.4 L [place] % (Auto) 12.3 H Eos % (Auto) [...] Provider] - Disposition Disposition: Acute Care Hospital [facility] What to do if you have Problems For any increased pain, shortness of breath, bleeding, nausea or vomiting, chestpain, or any unexpected problems, contact your Primary Care Provider. Call [facility] ([phone]) or report to the closest Emergency Room. Call 911 if necessary. 11/22/22 1654 <Electronically signed by Katie Radnle DO> Cosigner Signature (if applicable): CC: Dr. Erica Richardson DO ~ Signed [facility] Work Phone: 1(437) 521-584008-03-2023 History of Present illness Narrative* Katarzyna Nance [...] 22, 2022 12:08 PM documented in this encounterOhiohealth Van Wert [facility]08-03-2023 NoteHNO ID: [id number] Author: Katarzyna Nance RT(R) Service: Radiology Author [...] BY: RT Connor(R) November 22, 2022 12:08 [facility]08-03-2023 NoteHNO ID: [id number] Author: Eliel Blount APRN.PITCH GATHERER Service: ? Author Type: Nurse Practitioner Type: [...] - Alkylamine, Benadryl [Diphenhydramine Hcl], and Neosporin [Kecniewa-Irxqrsoizb-Tjjnqoqgu] MEDICATIONS oxyCODONE IR (ROXICODONE) 5 mg immediate [...] breath, wheezing and stridor. (more content not included)...[facility]08-03-2023 History of Present illness Narrative* Eliel Blount, R[facility] - 11/22/2022 11:57 AM EDT Subjective [...] - Alkylamine, Benadryl [Diphenhydramine Hcl], and Neosporin [Idwoewom-Dcagjnipus-Fxzqgbqej] MEDICATIONS oxyCODONE IR (ROXICODONE) 5 mg immediate [...] agrees with plan of care. Eliel Blount APRN.PITCH GATHERER documented in this encounterOhiohealth Van Wert [facility]03-24-2023 History of Present illness Narrative* John Erazo RN - 07/13/2022 7:40 AM EDT Patient is here for IVAD port flush per [facility] protocol. IVAD is located in right upper chest. Site cleansed with Chloraprep IVAD accessed with a #20 gauge 3/4 non-coring Gripper needle Blood Return: Good Flushed with: 20 ml Normal Saline and 5 ml Heparin Lock Flush Non-coring needle removed. Paper tape applied to puncture site. Port site negative for redness, edema or tenderness. Patient tolerated procedure well. documented in this encounterOhiohealth [facility]03-13-[address] Ly [facility] July 02, 2022 8:37pm Note Date/Time July 02, 2022 5:2 4pm [facility] Medical Records Department [address] [place] [address] Emergency Department Summary 07/02/22 MR#: [id number] Acct: [id number] Name: AIDEN FIELDS Rep #:[id number] : 1945 76 From: Sim Ly MD PCP: Dr. 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 [facility] Medical History Alcohol abuse Alcohol intoxication Anemia [...] Unknown Unknown Verified 07/02/22 16:16 [From Neosporin (nrq-xix-yiefw)] neomycin Allergy Unknown Unknown Verified 07/02/22 16:16 [From Neosporin (ghh-wox-mvhpi)] polymyxin B Allergy Unknown Unknown Verified 07/02/22 16:16 [From Neosporin (hyn-zhk-znavg)] Antihistamines - Alkylamine Allergy PT UNSURE Verified [...] She does have an appointment with her automotive starter repairer already in about 3 days. She was [...] removal Activity Restrictions/Additional Instructions: Follow-up with your automotive starter repairer as scheduled. Disposition Disposition: Home, Self Care What to do if you have Problems For any increased pain, shortness of breath, bleeding, nausea or vomiting, chestpain, or any unexpected problems, contact your Primary Care Provider. Call [facility] ([phone]) or report to the closest Emergency Room. Call 911 if necessary. 07/02/222036 <Electronically signed by Sim Ly MD> Cosigner Signature (if applicable): CC: Dr. Erica Richardson DO ~ Signed [facility] Work Phone: 1(323) 392-409902-24-2023 History of Present illness Narrative* Radha Suarez RN - 06/15/2022 2:42 PM EST Patient is here for IVAD port flush per [facility] protocol. IVAD is located in right upper chest. Site cleansed with Chloraprep IVAD accessed with a #20 gauge 3/4 non-coring Gripper needle Blood Return: Good Flushed with: 20 ml Normal Saline and 5 ml Heparin Lock Flush Non-coring needle removed. Paper tape applied to puncture site. Port site negative for redness, edema or tenderness. Patient tolerated procedure well. documented in this encounterOhiohealth [facility]01-04-2023 History of Present illness Narrative* Radha Suarez RN - 04/25/2022 1:35 PM EST Patient is here for IVAD port flush per [facility] protocol. IVAD is located in right upper chest. Site cleansed with Chloraprep IVAD accessed with a #20 gauge 3/4 non-coring Gripper needle Blood Return: Good Flushed with: 20 ml Normal Saline and 5 ml Heparin Lock Flush Non-coring needle removed. Paper tape applied to puncture site. Port site negative for redness, edema or tenderness. Patient tolerated procedure well. documented in this encounterOhio[facility]09-20-2022 [facility] History of Present illness Narrative* All Tsang MD - 01/09/2022 1:15 PM EDT NEUROSURGERY FOLLOW UP OFFICE NOTE Dr. All Tsang MD, [facility] Date of visit: January 09, 2022 Patient Name: Ms.Barbara John Fields Date of : 1945 Current Age: [age] year old Sex: female MRN/E# [id number] Last Office Visit: 11/03/2021 Chief Complaint: Patient presents with: Established Patient SUBJECTIVE: The patient presents as a follow-up with imaging (MRI B) for evaluation. This is a 76-year-old female with a history of breast cancer and melanoma who was seen in consult at [facility] on 10/07/[address] Delgado after a [...] seizure activity. She was residing in a half-way and was working with physical therapy given [...] symptoms. This note was partially generated using [employer] voice recognition system, and there may be some incorrect words, spellings, and punctuation that were not noted in checking the note before saving. documented in this encounterOhiohealth [facility]09-15-2022 History of Present illness Narrative* Erica [...] 04, 2022 2:02 PM documented in this encounterOhiohealth [facility]09-14-2022 Miscellaneous Notes* Telephone Encounter - Tsering Castillo - 01/03/2022 12:19 PM EDT Patient has been scheduled for port access at 1:30 pm tomorrow and I did let patient's nurse at [facility] know this, she confirmed patient's arrival time. Tsering Castillo * Telephone Encounter - KATIE Rivas - 01/03/2022 10:55 AM EDT Pt would like to use port for appt on 01/04/22 for MRI @ 1:40pm Please call pt to let them know what time to come in please documented in this encounterOhiohealth [facility]07-15-2022 [facility]07[facility]14-2022 [facility]07-14-2022 History of Present illness Narrative* Denys Bolden PA-C - 11/02/2021 3:17 PM EDT Images from the original note were not included. Trauma Clinic Note SERVICE DATE: 11/02/2021 Trauma Service Pager: For questions or concerns Mon-Fri 6a-5p please page [phone]. After 5pm and on Weekends and Holidays, please page [phone] if in ICU or [phone] if on RNF. SUBJECTIVE: Patient presents to the trauma clinic with her daughter. She came from her nursing home facility. She is here for rib plating [...] GLF on ASA on 10/06/2021 (transfer from [place]) Traumatic Injuries: 1. Right frontal IPH 2. [...] 2. 10/09/2021 - VATS, rib plating (Dr. Velazquez and Dr. Bruner) 3. 10/13/2021 - L [...] November 02, 2021 TIME: 3:26 PM Pager: [phone] (text page) documented in this encounterOhiohealth [facility]07-14-2022 [facility]07-14-2022 Instructions* Patient Instructions* Denys Bolden PA-C - [...] another 2 viewchest x-ray documented in this encounterOhiohealth [facility]07-14-2022 History of Present illness Narrative* RT [...] 02, 2021 12:30 PM documented in this encounterOhiohealth [facility]07-11-2022 History of Present illness Narrative* RT [...] 30, 2021 3:21 PM documented in this encounterOhiohealth [facility]07-01-2022 Miscellaneous Notes* Telephone Encounter - Eva Dee Pss - 10/20/2021 9:45 AM EDT Left message with day and time of scheduled follow up appointments. Eva Dee Pss documented in this encounterOhiohealth Van W[facility]06-28-2022 [facility]06-27-2022 [facility]06-26-2022 [facility]06-25-2022 [facility]06-24-2022 [facility]06-24-2022 [facility]06-23-2022 Note [facility]06-23-2022 Miscellaneous Notes* Telephone Encounter - Aiden Alanis LPN - 10/12/2021 4:30 PM EDT Pt's Sister Sami(a psych nurse) from [place] called to update Dr Santos or Stalin [...] psych eval. Sami can be reached at [phone] . I called and notified Stalin POWERS who isgoing to talk to pt and the sister that is POA that is at the hospital now. Kev BRAVO documented in this encounterOhiohealth Van [facility]06-23-2022 [facility]06-22-2022 [facility]06-22-2022 [facility]06-21-2022 [facility]06-21-2022 [facility]06-21-2022 [facility]06-21-2022 Note [facility]06-20-2022 [facility] 10-09-2021 [facility]06-20-2022 [facility]06-20-2022 [facility]06-20-2022 [facility]06-20-2022 NoteHNO ID: [id number] Author: Medhat Silveira RN Service: ? Author Type: Registered Nurse Type: Nursing Progress Note Filed: 10/09/2021 2:22 AM Note Text: Pt up to bsc with assist of 1 unable to void will bladder [facility]06-19-2022 [facility]06-19-2022 [facility]06-19-2022 [facility]06-18-2022 Note [facility]03-23-2022 History of Present illness Narrative* Nicho Johnson [...] Nicho J Johnson, MD documented in this encounterOhiohealth [facility]11-26-2021 History of Present illness Narrative* Katarzyna [...] 17, 2021 2:30 PM documented in this encounterOhiohealth [facility]03-28-2013 History of Past illness Narrative* Problem Noted Date Resolved Date 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 10/03/2012 Breast cancer 07/03/2012 02/11/2013 documented as of this encounter (statuses as of 07/17/2021) [facility] of Past illness Narrative* Problem Noted Date Resolved Date 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 10/03/2012 Breast cancer 07/03/2012 02/11/2013 documented as of this encounter (statuses as of 08/01/2021) [facility] of [facility] illness Narrative* Problem Noted Date Resolved Date 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 10/03/2012 Breast cancer 07/03/2012 02/11/2013 documented as of this encounter (statuses as of 08/29/2021) [place] [id number] History of Past illness Narrative* Problem Noted Date Resolved Date 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 10/03/2012 Breast cancer 07/03/2012 02/11/2013 documented as of this encounter (statuses as of 10/03/2021) [facility] of [facility] illness Narrative* Problem Noted Date Resolved Date 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 10/03/2012 Breast cancer 07/03/2012 02/11/2013 documented as of this encounter (statuses as of 10/11/2021) [address]28-2013 History of Past illness Narrative* Problem Noted Date Resolved Date 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 10/03/2012 Breast cancer 07/03/2012 02/11/2013 documented as of this encounter (statuses as of 10/12/2021) [address]28-2013 History of Past illness Narrative* Problem Noted Date Resolved Date 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 10/03/2012 Breast cancer 07/03/2012 02/11/2013 documented as of this encounter (statuses as of 10/20/2021) [place] [id number] History of Past illness Narrative* Problem Noted Date Resolved Date 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 10/03/2012 Breast cancer 07/03/2012 02/11/2013 documented as of this encounter (statuses as of 10/31/2021) [place] [id number] History of Past illness Narrative* Problem Noted Date Resolved Date 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 10/03/2012 Breast cancer 07/03/2012 02/11/2013 documented as of this encounter (statuses as of 11/02/2021) [place] [id number] History of Past illness Narrative* Problem Noted Date Resolved Date 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 10/03/2012 Breast cancer 07/03/2012 02/11/2013 documented as of this encounter (statuses as of 11/03/2021) [place] [id number] History of Past illness Narrative* Problem Noted Date Resolved Date 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 10/03/2012 Breast cancer 07/03/2012 02/11/2013 documented as of this encounter (statuses as of 01/03/2022) [address]28-2013 History of Past illness Narrative* Problem Noted Date Resolved Date 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 10/03/2012 Breast cancer 07/03/2012 02/11/2013 documented as of this encounter (statuses as of 01/04/2022) [address]28-2013 History of Past illness Narrative* Problem Noted Date Resolved Date 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 10/03/2012 Breast cancer 07/03/2012 02/11/2013 documented as of this encounter (statuses as of 01/05/2022) [address]28-2013 History of Past illness Narrative* Problem Noted Date Resolved Date 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 10/03/2012 Breast cancer 07/03/2012 02/11/2013 documented as of this encounter (statuses as of 01/09/2022) [place] [address]-28-2013 History of Past illness Narrative* Problem Noted Date Resolved Date 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 10/03/2012 Breast cancer 07/03/2012 02/11/2013 documented as of this encounter (statuses as of 03/28/2022) [place] [id number] History of Past illness Narrative* Problem Noted Date Resolved Date 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 10/03/2012 Breast cancer 07/03/2012 02/11/2013 documented as of this encounter (statuses as of 04/27/2022) [place] [address]-28-2013 History of Past illness Narrative* Problem Noted Date Resolved Date 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 10/03/2012 Breast cancer 07/03/2012 02/11/2013 documented as of this encounter (statuses as of 06/15/2022) [place] [id number] History of Past illness Narrative* Problem Noted Date Resolved Date 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 10/03/2012 Breast cancer 07/03/2012 02/11/2013 documented as of this encounter (statuses as of 07/13/2022) [address]28-2013 History of Past illness Narrative* Problem Noted Date Resolved Date 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 10/03/2012 Breast cancer 07/03/2012 02/11/2013 documented as of this encounter (statuses as of 08/10/2022) [place] [address]-28-2013 History of Past illness Narrative* Problem Noted Date Diagnosed Date Resolved Date 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 10/03/2012 Breast cancer 07/03/2012 02/11/2013 documented as of this encounter (statuses as of 11/22/2022) [place] [address]-28-2013 History of Past illness Narrative* Problem Noted Date Diagnosed Date Resolved Date 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 10/03/2012 Breast cancer 07/03/2012 02/11/2013 documented as of this encounter (statuses as of 11/24/2022) [place] [address]-28-2013 History of Past illness Narrative* Problem Noted Date Diagnosed Date Resolved Date 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 10/03/2012 Breast cancer 07/03/2012 02/11/2013 documented as of this encounter (statuses as of 08/06/2023) [facility] complaint+Reason for visit Narrative* Chief Complaint LABS/MANDEEP 1 Y FU OSTEO FALL MARKETING LIAISON 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 CUSTODIAL LABWORK CUSTODIAL LABWORK Reason for Visit Hypoparathyroidism a fter procedure Hypothyroidism [facility] Work Phone: chief complaint+Reason for visit Narrative* Chief Complaint LABS/MANDEEP 1 Y FU OSTEO FALL LAB WORK MARKETING LIAISON 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 CUSTODIAL LABWORK CUSTODIAL LABWORK Reason for Visit Hypoparathyroidism a fter procedure Hypothyroidism [facility] Work Phone: Chiep complaint+Reason for visit Narrative* Chief Complaint OSTEO FALL LAB WORK MARKETING LIAISON 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 CUSTODIAL LABWORK CUSTODIAL LABWORK CUSTODIAL LABWORK LAB WORK CUSTODIAL LABWORK CUSTODIAL LAB WORK [facility] Work Phone: Chija complaint+Reason for visit Narrative* Chief Complaint FALL LAB WORK MARKETING LIAISON 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 CUSTODIAL LABWORK CUSTODIAL LABWORK CUSTODIAL LABWORK LAB WORK CUSTODIAL LABWORK LAB WORK CUSTODIAL LABWORK CUSTODIAL LAB WORK LABWORK [facility] Work Phone: Chief complaint+Reason for visit Narrative* Chief Complaint FALL LAB WORK MARKETING LIAISON 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 CUSTODIAL LABWORK CUSTODIAL LABWORK CUSTODIAL LABWORK LAB WORK CUSTODIAL LABWORK LAB WORK CUSTODIAL LABWORK CUSTODIAL LAB WORK CUSTODIAL LABWORK LABWORK CUSTODIAL LAB WORK [facility] Work Phone: Chief complaint+Reason for visit Narrative* Chief Complaint FALL LAB WORK MARKETING LIAISON 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 CUSTODIAL LABWORK CUSTODIAL LABWORK CUSTODIAL LABWORK LAB WORK CUSTODIAL LABWORK LAB WORK CUSTODIAL LABWORK CUSTODIAL LAB WORK CUSTODIAL LABWORK CUSTODIAL LABWORK LABWORK CUSTODIAL LAB WORK [facility] Work Phone: Chief complaint+Reason for visit Narrative* Chief Complaint FALL LAB WORK MARKETING LIAISON 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 CUSTODIAL LABWORK CUSTODIAL LABWORK CUSTODIAL LABWORK LAB WORK CUSTODIAL LABWORK LAB WORK CUSTODIAL LABWORK CUSTODIAL LAB WORK CUSTODIAL LABWORK CUSTODIAL LABWORK LABWORK CUSTODIAL LAB WORK CUSTODIAL LAB WORK [facility] Work Phone: Chief complaint+Reason for visit Narrative* Chief Complaint FALL LAB WORK MARKETING LIAISON 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 CUSTODIAL LABWORK CUSTODIAL LABWORK CUSTODIAL LABWORK LAB WORK CUSTODIAL LABWORK LAB WORK CUSTODIAL LABWORK CUSTODIAL LAB WORK CUSTODIAL LABWORK CUSTODIAL LABWORK LABWORK CUSTODIAL LAB WORK CUSTODIAL LAB WORK [facility] Work Phone: Chief complaint+Reason for visit Narrative* Chief Complaint FALL LAB WORK MARKETING LIAISON 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 CUSTODIAL LABWORK CUSTODIAL LABWORK CUSTODIAL LABWORK LAB WORK CUSTODIAL LABWORK LAB WORK CUSTODIAL LABWORK CUSTODIAL LAB WORK CUSTODIAL LABWORK CUSTODIAL LABWORK LABWORK CUSTODIAL LAB WORK LABWORK CUSTODIAL LAB WORK [facility] Work Phone: Chief complaint+Reason for visit Narrative* Chief Complaint LAB WORK MARKETING LIAISON 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 CUSTODIAL LABWORK CUSTODIAL LABWORK CUSTODIAL LABWORK LAB WORK CUSTODIAL LABWORK LAB WORK CUSTODIAL LABWORK CUSTODIAL LAB WORK CUSTODIAL LABWORK CUSTODIAL LABWORK LABWORK CUSTODIAL LAB WORK LABWORK CUSTODIAL LAB WORK FALL CUSTODIAL LABWORK CUSTODIAL LABWORK [facility] Work Phone: Chief complaint+Reason for visit Narrative* Chief Complaint LAB WORK MARKETING LIAISON 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 CUSTODIAL LABWORK CUSTODIAL LABWORK CUSTODIAL LABWORK LAB WORK CUSTODIAL LABWORK LAB WORK CUSTODIAL LABWORK CUSTODIAL LAB WORK CUSTODIAL LABWORK CUSTODIAL LABWORK LABWORK CUSTODIAL LAB WORK LABWORK CUSTODIAL LAB WORK FALL CUSTODIAL LABWORK CUSTODIAL LABWORK CUSTODIAL LABWORK CUSTODIAL LAB WORK [facility] Work Phone: Chief complaint+Reason for visit Narrative* Chief Complaint LAB WORK MARKETING LIAISON 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 CUSTODIAL LABWORK CUSTODIAL LABWORK CUSTODIAL LABWORK LAB WORK CUSTODIAL LABWORK LAB WORK CUSTODIAL LABWORK CUSTODIAL LAB WORK CUSTODIAL LABWORK CUSTODIAL LABWORK LABWORK CUSTODIAL LAB WORK LABWORK CUSTODIAL LAB WORK LABWORK FALL CUSTODIAL LABWORK CUSTODIAL LABWORK CUSTODIAL LABWORK CUSTODIAL LAB WORK [facility] Work Phone: Discharge summary Author James Lamar [facility] November 23, 2022 12:54pm Note Date/Time November 23, 2022 12: 44pm [facility] Medical Records Department [address] [place] [address] Instructions for Home/Discharge Instructions 11/23/22 1241 MR#: [id number] Acct: [id number] Name: AIDEN FIELDS Rep #:[id number] : 1945 77 From: James Lamar DO [...] Home, Self Care 11/23/22 1254<Electronically signed by James Lamar DO>James Lamar DO CC: Dr. Erica Richardson DO; Dr. 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, estrogen receptor positive, unspecified site of breast (HCC)- Primary documented in this encounter [facility] note* Diagnosis Onset Date Resolution Status Hypoparathyroidism after procedure acute Hypothyroidism acute [facility] Work Phone: Evaluation note* Diagnosis Malignant neoplasm of left breast in female, estrogen receptor positive, unspecified site of breast (HCC)- Primary documented in this encounter [facility] note* Diagnosis SDH (subdural hematoma) (HCC)- Primary Subdural hemorrhage documented in this encounter [facility] note* Diagnosis SDH (subdural hematoma) (HCC) Subdural hemorrhage documented in this encounter [facility] note* Diagnosis Closed fracture of multiple ribs with flail chest with routine healing, subsequent encounter- Primary documented in this encounter [facility] note* Diagnosis Closed fracture of multiple ribs of left side, initial encounter Lung laceration, subsequent encounter documented in this encounter [facility] noteNo assessment information availableWSelect [facility] Work Phone: Evaluation note* Diagnosis Malignant neoplasm of left breast in female, estrogen receptor positive, unspecified site of breast (HCC)- Primary documented in this encounter [facility] note* Diagnosis SDH (subdural hematoma) (HCC) Subdural hemorrhage Cerebral hemorrhage (HCC) Intracerebral hemorrhage documented in this encounter [facility] note* Diagnosis SDH (subdural hematoma)- Primary Subdural hemorrhage Cerebral hemorrhage (HCC) Intracerebral hemorrhage documented in this encounter [facility] note* Diagnosis Malignant neoplasm of left breast in female, estrogen receptor positive, unspecified site of breast (HCC)- Primary documented in this encounter [facility] note* Diagnosis Malignant neoplasm of left breast in female, estrogen receptor positive, unspecified site of breast (HCC)- Primary documented in this encounter [facility] note* Diagnosis Onset Date Resolution Status Cough acute Hypoxia acute [facility] Work Phone: Evaluation note* Diagnosis Acute cough- Primary SOB (shortness of breath) Shortness of breath Suspected COVID-19 virus infection documented in this encounter [facility] note* Diagnosis Onset Date Resolution Status Cough acute Dyspnea on exertion acute Hypoxia acute [facility] Work Phone: Evaluation note* Diagnosis Onset Date Resolution Status Acute hypotension acute Acute hypoxic respiratory failure acute Creatinine elevation acute Encephalopathy due to infection acute Ketosis acute Pyuria acute SIRS (systemic inflammatory response syndrome) acute [facility] Work Phone: Evaluation note* Diagnosis History of breast cancer- Primary Personal history of malignant neoplasm of breast documented in this encounter [facility] note* Diagnosis Onset Date Resolution Status Acute hypotension resolved Creatinine elevation resolve d Encephalopathy due to infection resolved Ketosis resolved Pyuria resolved SIRS (systemic inflammatory response syndrome) resolved [facility] Work Phone: Evaluation note* Diagnosis History of breast cancer- Primary Personal history of malignant neoplasm of breast documented [facility] this encounter [facility]* Diagnosis Pre-operative examination- Primary Preoperative examination, [...] encounter Acute cough [facility]* Diagnosis Pre-operative examination- Primary Preoperative examination, [...] arm, subsequent encounter documented in this encounter [facility] HospitalHistory and physical note Author Aggie Bolton [facility] May 19, 2023 1:45am Note Date/Time May 19, 2023 1 :39am [facility] Medical Records Department [address] [place] [id number] H&P Exam - Hospitalist 05/19/23 0135 MR#: [id number] Acct: [id number] Name: LIVEAIDEN PEGUERO Consuelo Rep #:[id number] : 1945 77 From: Aggie Bolton MD [...] of prior records who presents to the [facility] ED on 05/19/23 with significant encephalopathy with [...] and azithromycin 500 mg IV x 1. [facility] Medical History (Updated 05/19/23 @ 01:44 by [...] Unknown Unknown Verified 05/18/23 23:29 [From Neosporin ([id number])] neomycin Allergy Unknown Unknown Verified 05/18/23 23:29 [From Neosporin ([id number])] polymyxin B Allergy Unknown Unknown Verified 05/18/23 23:29 [From Neosporin ([id number]-wkr-cifho)] Antihistamines - Alkylamine Allergy PT UNSURE Verified [...] History (Updated 05/19/23 @ 01:[address] gAgie Bolton MD) household members: none Smoking Status: [...] 89.8 H, Lymph % (Auto) 6.3 L, [place] % (Auto) 2.4, Eos % (Auto) 0.3, [...] Urine Clarity Cloudy, Urine pH6.0, Ur Specific [place] 1.010, Urine Protein 100 H, Urine Glucose [...] review of prior recordswho presents to the [facility] ED [facility]23 with significant encephalopathy with [...] prophylaxis: Heparin. Charges/Coding Visit Charges Inpatient E&M: 66047 Init Hosp L3 05/19/23 0145 <Electronically signed by Aggie Bolton MD> Cosigner Signature (if applicable): CC: Dr. Aggie Bolton MD; Dr. Erica Richardson, DO~ Signed [facility] Work Phone: Hospital Discharge instructionsWooWVUMedicine [facility] Work Phone: Hospital Discharge instructions Additional Instructions Follow-up with your automotive starter repairer as scheduled.[facility] Work Phone: Hospital Discharge instructions Additional Instructions Thank you for trusting us with your care today! Please take Tylenol (2 pills, 650 mg), ibuprofen (2 pills, 400 mg) every 6 hours as needed for pain and fever control. Please return to the emergency department if your symptoms change or worsen. Please follow with your primary care physician for further outpatient evaluation and management.[facility] Work Phone: Reason for referral (narrative)* Diagnostic Procedure Only (Urgent) - Closed Specialty Diagnoses / Procedures Referred By Contac t Referred To Contact XR IMAGING Diagnoses Injury of left upper arm, subsequent encounter Procedures XR HUMERUS 2V AP/LAT LEFT X-RAY HUMERUS Earline Rebolledo, RIO.PITCH GATHERER [address] [place] [address] [place] [address] Referral ID Status Reason Start Date Expiration Date V isits Requested Visits Authorized Closed Auto-Generate d Referral 03/17/2021 04/16/2022 1 [facility] ([facility])No reason for referral information availableWSelect [facility] Work Phone: Reason for visit Narrative* Diagnostic Procedure Only (Urgent) - Closed Specialty Diagnoses / Procedures Referred By Contac t Referred To Contact XR IMAGING Diagnoses Injury of left upper arm, subsequent encounter Procedures XR HUMERUS 2V AP/LAT LEFT X-RAY HUMERUS Earline Rebolledo APRN.PITCH GATHERER [address] [place] [address] [place] [address] Referral ID Status Reason Start Date Expiration Date V isits Requested Visits Authorized [id number] Closed Auto-Generate d Referral 03/17/2021 04/16/2022 1 1 [facility] Summary Purpose Family History No Family [...] Documents on File Type Date Recorded Patient Sporting Goods Sales Manager Expl anation Advance Directive(s) 06/13/2018 11:17 AM Advance Directive Response Recorded Date/ Time Name of Medical Power of Real Estate Salesperson . May 21, 2021 3:48pm Living Will Yes June 11 12:06pm Power of Real Estate Salesperson Yes June 11, 2021 12:06pm Advance Directive Response Recorded Date/ Time Name of Medical Power of Real Estate Salesperson Reed Marx June 11, 2021 12:06pm Living Will Yes October 06, 2021 9:38pm Power of Real Estate Salesperson No October 06 9:38pm Documents on File Type Date Recorded Patient Sporting Goods Sales Manager Expl anation Advance Directive(s) 10/07/2021 4:42 AM Advance Directive(s) 06/13/2018 11:17 AM Documents on File Type Date Recorded Patient Sporting Goods Sales Manager Expl anation Advance Directive(s) 10/07/2021 4:42 AM Advance Directive(s) 06/13/2018 11:17 AM Advance Directive Response Recorded Date/ Time Living Will Yes October 06, 2021 9:38pm Power of Real Estate Salesperson No October 06 9:38pm Advance Directive Response Recorded Date/ Time Name of Medical Power of Real Estate Salesperson REED AZAR January 10, 2022 11:50am Living Will Yes January 10, 2022 11:50am Power of Real Estate Salesperson Yes December 11:50am Advance Directive Response Recorded Date/ Time Living Will Yes March 09, 022 8:51am Power of Real Estate Salesperson Yes March 09, 2022 8:51am Name of Medical Power of Real Estate Salesperson REED MA MYNORMIRACLE January 10, 2022 10:50am Advance Directive Response Recorded Date/ Time Living Will Yes March 09 8:51am Power of Real Estate Salesperson Yes March 09, 2022 8:51am Advance Directive Response Recorded Date/ Time Name of Medical Power of Real Estate Salesperson karol prieto July 02, 2022 5:04pm Living Will Yes July 02, 2022 5:04pm Power of Real Estate Salesperson Yes July 02 5:04pm Advance Directive Response Recorded Date/ Time Name of Medical Power of Real Estate Salesperson Reed Marx November 22, 2022 12:50pm Living Will Yes November 22, 2022 12:50pm Power of Real Estate Salesperson Yes November 22 12:50pm Advance Directive Response Recorded Date/ Time Name of Medical Power of Real Estate Salesperson Reed Marx November 22, 2022 6:25pm Living Will Yes November 22, 2022 6:25pm Power of Real Estate Salesperson Yes November 22 6:25pm Advance Directive Response Recorded Date/ Time Living Will Yes November 22, 2022 5:25pm Power of Real Estate Salesperson Yes November 22 5:25pm Advance Directive Response Recorded Date/ Time Name of Medical Power of Real Estate Salesperson Reed Marx May 19, 2023 3:16am Living Will Yes May 19 3:16am Power of Real Estate Salesperson Yes May 19, 2023 3:16am Advance Directive Response Recorded Date/ Time Name of Medical Power of Real Estate Salesperson Reed Marx May 19, 2023 4:16am Living Will No August 20, 2023 12:29pm Power of Real Estate Salesperson No August 19 12:29pm Advance Directive Response Recorded Date/ Time Living Will No July 04, 2024 1:18pm Power of Real Estate Salesperson No July 04 1:18pm Advance Directive Response Recorded Date/ Time Living Will No July 04, 2024 1:18pm Do you have a Healthcare Power of Real Estate Salesperson? No July 04, 2024 1:18pm Reason for Referral Status Reason Specialty Diagnoses / Procedures Referre d By Contact Referred To Contact Open Radiology Diagnoses Traumatic subdural hematoma with loss of consciousness of 30 minutes or less, subsequent encounter Procedures CT Head WO Contrast Nicho Thompson MD [address] [place] [address] Specialty Diagnoses / Procedures Referred By Contac t Referred To Contact CT IMAGING Diagnoses SDH (subdural hematoma) (HCC) Procedures CT BRAIN WO IVCON CT HEAD/BRAIN W/O CONTRAST MATERIAL Yolie Lowe PA-C [address] [place] [address] Ct Imaging Referral ID Status Reason Start Date Expiration Date Visits Requested Visits Authorized [id number] Pending Review Auto-Generat ed Referral 10/25/2021 11/10/2022 1 1 Referral ID Status Reason Start Date Expiration Date V isits Requested Visits Authorized [id number] Closed Auto-Generate d Referral 10/25/2021 11/10/2022 1 1 Specialty Diagnoses / Procedures Referred By Contac t Referred To Contact MR IMAGING Diagnoses SDH (subdural hematoma) (HCC) Cerebral hemorrhage (HCC) Procedures MRI BRAIN WO/W IVCON MRI BRAIN BRAIN STEM W/O W/CONTRAST MATERIAL Sherice Rosenberg APRN.PITCH GATHERER [address] [facility] [place] [address] Mr Imaging Referral ID Status Reason Start Date Expiration Date V isits Requested Visits Authorized [id number] Closed Auto-Generate d Referral 11/03/2021 12/03/2022 1 [...] 9:44 AM EST Family Communication Number Called: [phone] Name of Designated Family Sporting Goods Sales Manager: Reed Fields Relationship to Patient: daughter Phone Call Outcome: I spoke with the individual listed above. 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 This provider wore an N95, face shield, and gloves for the duration of the session with this pt. Yara Fletcher OTR/L * Parvez Bolden, PT - 04/17/2020 9:05 AM EST Physical Therapy Facility/Department: [facility] ICU T2 Initial Assessment NAME: Aiden Fields : 1945 Date of Service: 04/17/2020 Discharge Recommendations: (facility based therapy) Assessment Body structures, Functions, Activity limitations: Decreased functional mobility ;Decreased strength;Decreased balance;Decreased safe awareness;Decreased endurance Assessment: Pt admitted for Small R temporal SDH without mass effect after fall. Pt RABBLER was living alone ( in SNF?). 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 Goals and/or treatment [...] 2:38 PM EST Speech Language Pathology Facility/Department: [facility] ICU T2 CLINICAL BEDSIDE SWALLOW EVALUATION [...] Injury: Fall SH Mechanism of Arrival:Transfer from [place] Chief Complaint: headache History of Traumatic Injury: 74 y.o. female with history of depression, anxiety, hypothyroidism, hypertension, breast cancer s/p mastectomy, melanoma s/p excision and on baby ASA who presents as transfer from [facility] after patient suffered a mechanical fall resulting [...] lifealert. EMS cam and brought her to [facility]. Work up at the OSH, showed that patient had leukocytosis of 14.3 and an h/h of 12.5/ 38.5. CT head was performed and showed - right frontal hematoma and deep laceration extending to the superficla cortex of the right frontal bone at the lateral aspect of the roof of the right orbit (no fractures). Her laceration was repair and she was transferred to [facility] for further management. Upon arriaval she was [...] if any concerns arise. Treatment Plan Requires MACHINE TENDER Intervention: No Duration/Frequency of Treatment: na Recommended Diet and Intervention Diet Solids Recommendation: Regular Liquid Consistency Recommendation: Thin General Chart Reviewed: Yes Behavior/Cognition: Alert;Cooperative - patient lives alone - spouse moved to [facility] 9 months ago due to dementia. [...] Safety Devices in place: Yes Therapy Time MACHINE TENDER Individual Minutes Time In: 1415 Time Out: 1430 Minutes: 15 MACHINE TENDER Total Treatment Time Total Treatment Time: 15 Char Walsh MS, CRISTOPHER/ MACHINE TENDER 04/16/2020 2:38 PM An N95 mask, a [...] Hospital Course Note Department of Trauma / [facility] Discharge Summary Name: Aiden Fields Date: 04/20/2020 [...] section and content) DATE CREATED AUTHOR 09/06/2019 [facility] ([place]) DATE CREATED AUTHOR AUTHOR'S ORGANIZ ATION 05/05/2020 [facility] DATE CREATED AUTHOR AUTHOR'S ORGANIZ ATION 01/21/2022 [facility] DATE CREATED AUTHOR AUTHOR'S ORGANIZ ATION 09/22/2023 [facility] DATE CREATED AUTHOR AUTHOR'S ORGANIZ ATION 11/08/2023 [facility] DATE CREATED AUTHOR AUTHOR'S ORGANIZ ATION 09/17/2024 [facility] Source Comments (unrecognize d section and content) In the event this informatio n is protected by the Federal Confidentiality of Alcohol and Drug Abuse Patient Records regulations: The Federal rules restrict any use of the information to criminally investigate or prosecute any alcohol or drug abuse patient.[facility] the event this information is protected by the Federal Confidentiality of Alcohol and Drug Abuse Patient Records regulations: The Federal rules restrict any use of the information to criminally investigate or prosecute any alcohol or drug abuse patient.[facility] the event this information is protected by the Federal Confidentiality of Alcohol and Drug Abuse Patient Records regulations: The Federal rules restrict any use of the information to criminally investigate or prosecute any alcohol or drug abuse patient.[facility] the event this information is protected by the Federal Confidentiality of Alcohol and Drug Abuse Patient Records regulations: The Federal rules restrict any use of the information to criminally investigate or prosecute any alcohol or drug abuse patient.[facility] the event this information is protected by the Federal Confidentiality of Alcohol and Drug Abuse Patient Records regulations: The Federal rules restrict any use of the information to criminally investigate or prosecute any alcohol or drug abuse patient.[facility] the event this information is protected by the Federal Confidentiality of Alcohol and Drug Abuse Patient Records regulations: The Federal rules restrict any use of the information to criminally investigate or prosecute any alcohol or drug abuse patient.[facility] the event this information is protected by the Federal Confidentiality of Alcohol and Drug Abuse Patient Records regulations: The Federal rules restrict any use of the information to criminally investigate or prosecute any alcohol or drug abuse patient.[facility] the event this information is protected by the Federal Confidentiality of Alcohol and Drug Abuse Patient Records regulations: The Federal rules restrict any use of the information to criminally investigate or prosecute any alcohol or drug abuse patient.[facility] the event this information is protected by the Federal Confidentiality of Alcohol and Drug Abuse Patient Records regulations: The Federal rules restrict any use of the information to criminally investigate or prosecute any alcohol or drug abuse patient.[facility] the event this information is protected by the Federal Confidentiality of Alcohol and Drug Abuse Patient Records regulations: The Federal rules restrict any use of the information to criminally investigate or prosecute any alcohol or drug abuse patient.[facility] the event this information is protected by the Federal Confidentiality of Alcohol and Drug Abuse Patient Records regulations: The Federal rules restrict any use of the information to criminally investigate or prosecute any alcohol or drug abuse patient.[facility] Hospital[facility] the event this information is protected by the Federal Confidentiality of Alcohol and Drug Abuse Patient Records regulations: The Federal rules restrict any use of the information to criminally investigate or prosecute any alcohol or drug abuse patient.[facility] Hospital[facility] the event this information is protected by the Federal Confidentiality of Alcohol and Drug Abuse Patient Records regulations: The Federal rules restrict any use of the information to criminally investigate or prosecute any alcohol or drug abuse patient.[facility] Hospital[facility] the event this information is protected by the Federal Confidentiality of Alcohol and Drug Abuse Patient Records regulations: The Federal rules restrict any use of the information to criminally investigate or prosecute any alcohol or drug abuse patient.[facility] Hospital[facility] the event this information is protected by the Federal Confidentiality of Alcohol and Drug Abuse Patient Records regulations: The Federal rules restrict any use of the information to criminally investigate or prosecute any alcohol or drug abuse patient.[facility] Hospital[facility] the event this information is protected by the Federal Confidentiality of Alcohol and Drug Abuse Patient Records regulations: The Federal rules restrict any use of the information to criminally investigate or prosecute any alcohol or drug abuse patient.[facility] Hospital[facility] the event this information is protected by the Federal Confidentiality of Alcohol and Drug Abuse Patient Records regulations: The Federal rules restrict any use of the information to criminally investigate or prosecute any alcohol or drug abuse patient.[facility] the event this information is protected by the Federal Confidentiality of Alcohol and Drug Abuse Patient Records regulations: The Federal rules restrict any use of the information to criminally investigate or prosecute any alcohol or drug abuse patient.[facility] Hospital[facility] the event this information is protected by the Federal Confidentiality of Alcohol and Drug Abuse Patient Records regulations: The Federal rules restrict any use of the information to criminally investigate or prosecute any alcohol or drug abuse patient.[facility] Hospital[facility] the event this information is protected by the Federal Confidentiality of Alcohol and Drug Abuse Patient Records regulations: The Federal rules restrict any use of the information to criminally investigate or prosecute any alcohol or drug abuse patient.[facility] HospitalIn the event this information is protected by the Federal Confidentiality of Alcohol and Drug Abuse Patient Records regulations: The Federal rules restrict any use of the information to criminally investigate or prosecute any alcohol or drug abuse patient.[facility] HospitalIn the event this information is protected by the Federal Confidentiality of Alcohol and Drug Abuse Patient Records regulations: The Federal rules restrict any use of the information to criminally investigate or prosecute any alcohol or drug abuse patient.[facility] HospitalIn the event this information is protected by the Federal Confidentiality of Alcohol and Drug Abuse Patient Records regulations: The Federal rules restrict any use of the information to criminally investigate or prosecute any alcohol or drug abuse patient.[facility] Hospital[facility] the event this information is protected by the Federal Confidentiality of Alcohol and Drug Abuse Patient Records regulations: The Federal rules restrict any use of the information to criminally investigate or prosecute any alcohol or drug abuse patient.[facility] HospitalIn the event this information is protected by the Federal Confidentiality of Alcohol and Drug Abuse Patient Records regulations: The Federal rules restrict any use of the information to criminally investigate or prosecute any alcohol or drug abuse patient.[facility] Reason for Visit (unrecogniz ed section [...] W/O CONTRAST MATERIAL Yolie Lowe PA-C [address] [place] [address] Ct Imaging Referral ID Status Reason Start Date Expiration Date V isits Requested Visits Authorized [id number] Closed Auto-Generate d Referral 10/25/2021 11/10/2022 1 1 Reason Comments Post Op fu rib fx and pneumo thorax, rib plating Reason Comments Radio Gen RMP Specialty Diagnoses / Procedures Referred By Contac t Referred To Contact MR IMAGING Diagnoses SDH (subdural hematoma) (HCC) Cerebral hemorrhage (HCC) Procedures MRI BRAIN WO/W IVCON MRI BRAIN BRAIN STEM W/O W/CONTRAST MATERIAL Sherice Rosenberg, WOOL HAT FLANGER.PITCH GATHERER [address] [facility] [place] [address] Mr Imaging Referral ID Status Reason Start Date Expiration Date V isits Requested Visits Authorized [id number] Closed Auto-Generate d Referral 11/03/2021 12/03/2022 1 1 Reason Comments Established Patient Reason Comments Cough Cough x 3 weeks Reason Comments Results Care Teams (unrecognized sec tion and content) Magnetic Resonance Technologist Relationship Specialty Start Date End Date Erica Richardson, [address] [place] [address] PCP - General Family Practice 02/15/17 Magnetic Resonance Technologist Relationship Specialty Start Date End Date Erica Richardson DO [address] [place] [address] PCP - General Family Practice 02/15/17 Magnetic Resonance Technologist Relationship Specialty Start Date End Date Erica Richardson DO [address] [place] [address] PCP - General Family Practice 02/15/17 Magnetic Resonance Technologist Relationship Specialty Start Date End Date Erica Richardson DO [address] [place] [address] PCP - General Family Practice 02/15/17 Magnetic Resonance Technologist Relationship Specialty Start Date End Date Erica Richardson DO [address] [place] [address] PCP - General Family Practice 02/15/17 Magnetic Resonance Technologist Relationship Specialty Start Date End Date Erica Richardson DO [address] [place] [address] PCP - General Family Practice 02/15/17 Magnetic Resonance Technologist Relationship Specialty Start Date End Date Erica Richardson DO [address] [place] [address] PCP - General Family Practice 02/15/17 Magnetic Resonance Technologist Relationship Specialty Start Date End Date Erica Richardson DO [address] [place] [address] PCP - General Family Practice 02/15/17 Magnetic Resonance Technologist Relationship Specialty Start Date End Date Malys, Erica A, DO [address] [place] [address] PCP - General Family Practice 02/15/17 Magnetic Resonance Technologist Relationship Specialty Start Date End Date Erica Richardson DO [address] [place] [address] PCP - General Family Medicine 02/15/17 Magnetic Resonance Technologist Relationship Specialty Start Date End Date Erica Richardson DO [address] [place] [address] PCP - General Family Medicine 02/15/17 Team Status: Active Member Role Status Dates Dr. Erica Richardson DO Family Provider Active Dr. Erica Richardson DO Primary Care Provider Active Team Status: Inactive Member Role Status Dates Dr. Erica Richardson DO Primary Care Provider Active Aiden Mcgrath MARKETING LIAISON, MARKETING LIAISON-C Attending Provider Active Team Status: Active Member [...] Primary Care Provider, Attending P rovider Active Magnetic Resonance Technologist Relationship Specialty Start Date End Date Erica RichardsonDO [address] [place] [address] PCP - General Family Medicine 02/15/17 Team [...] MD Admit Provider, Attending Provi alexander Active Magnetic Resonance Technologist Relationship Specialty Start Date End Date Elena Richarsdonshiva Shannon DO [address] [place] [address] PCP - General Family Medicine 02/15/17 Team [...] James Lamar , DO Attending Provider Active Magnetic Resonance Technologist Relationship Specialty Start Date End Date Debra Erica Shannon DO [address] [place] [address] PCP - General Family Medicine 02/15/17 Team [...] Dr. Vernon Osman MD Other Provider Active Magnetic Resonance Technologist Relationship Specialty Start Date End Date Elena Richradsonshiva Shannon DO [address] [place] [address] PCP - [facility] Family Medicine 02/15/17 Team Status: Inactive Member Role Status Dates Dr. Erica Richardson DO Primary Care Provider Active Dr. Seb Bautista DO Emergency Provider Active Magnetic Resonance Technologist Relationship Specialty Start Date End Date Elena Richardsona ShivaDO [address] [place] [address] PCP - [facility] Family Medicine 02/15/17 Magnetic Resonance Technologist Relationship Specialty Start Date End Date Elena Richardsonshiva Shannon DO [address] [place] [address] PCP - [facility] Medicine 02/15/17 Magnetic Resonance Technologist Relationship Specialty Start Date End Date Erica RichardsonDO [address] [place] [address] PCP - [facility] Family Medicine 02/15/17 Team Status: Active Member [...] BE BASED ON THE PRIMARY CLINICAL RECORDS. [facility] [employer] [facility]. provides no warranty or guarantee of the accuracy or completeness of information in this document.
[2024-09-22 23:53] VITALS: BMI 24.9
[2024-09-23] VITALS (8 sets, daily range): BP systolic 126–147; BP diastolic 65–96; PULSE 69–87; RESP 16–18; TEMP 36.3–36.9; O2SAT 91–100; BMI 25.6
[2024-09-23] MEDS: 0.9% Saline Lock 10 ML Syringe IV ×2 (00:34→20:46)
[2024-09-23] MEDS: 0.9% Normal Saline (1000mL) 1,000 ML 100 ML IV (00:34)
[2024-09-23] MEDS: CLARIFY ORDER 1 EACH NOTE (03:23)
[2024-09-23 06:26] LABS: Absolute Lymphocyte Count 1.66 X10^3/uL (0.83-4.51); Absolute Neutrophil Count 7.2 X10^3/uL (2.0-7.7); Basophil# 0.08 X10^3/uL; Basophil% 0.8 % (0-1); Eosinophil# 0.25 X10^3/uL; Eosinophils% 2.4 % (0-5); Hematocrit 35.9 % (37-47); Lymphocyte # 1.66 X10^3/ul (0.83-4.51); Lymphocyte % 16.2 % (19-41); Mean Corp Hgb Conc 33.4 g/dL (32-36); Mean Corpuscular Hgb 32.6 pg (27.0-32.0); Mean Corpuscular Volume 97.6 fL (81-99); Mean Platelet Vol. 11.7 fl (6.2-12.0); Monocyte# 0.99 X10^3/uL; Monocyte% 9.6 % (0-10); NRBC Flagged by Analyzer 0 % (0-5); Neutrophil # 7.24 X10^3/uL (2.7-7.7); Neutrophil % 70.6 % (47-70); Platelet Count 241 K/mm3 (150-450); RBC Distribution Width CV 13.2 % (11.6-14.6); RBC Distribution Width SD 47.4 fl (35.1-43.9); Red Blood Count 3.68 M/mm3 (4.2-5.4); White Blood Count 10.3 K/mm3 (4.4-11.0)
[2024-09-23] MEDS: Liothyronine 5 MCG Tablet PO (06:28)
[2024-09-23] MEDS: Pregabalin 75 MG Capsule PO ×3 (06:28→20:40)
[2024-09-23] MEDS: Levothyroxine 125 MCG Tablet PO (06:28)
[2024-09-23 06:48] LABS: ALB/GLOB Ratio 1.2 RATIO (0.9-2.4); AST(SGOT) 24 U/L (<=31); Alanine Aminotransfer ALT/SGPT 13 U/L (<=34); Albumin, Serum 3.4 g/dL (3.4-4.8); Alkaline Phosphatase 80 U/L (35-104); Anion Gap 10 (5-15); BUN 13 mg/dL (4-19); BUN/Creat Ratio 18.3 RATIO (10-20); CPK Total, Creatine Kinase 271 U/L (24-195); Carbon Dioxide 24.4 mmol/L (21.0-32.0); Chloride 105 mmol/L (98-108); Creatinine, Serum 0.71 mg/dL (0.70-1.20); EST Glomerular Filtration Rate 87 (>60); Estimated Creatinine Clearance 59.41 ml/min (50-250); Globulin 2.8 g/dL (2.2-4.2); Glucose 162 mg/dL (70-99); Potassium 4.1 mmol/L (3.3-5.1); Protein, Total 6.2 g/dL (5.9-8.4); Sodium Level 140 mmol/L (133-145); Total Bilirubin 0.17 mg/dL (0.00-1.30)
--- NOTE | 2024-09-23 08:16 | PN.HOSP_ITS ---
Reason for Visit Reason for Visit: Diagnoses Urinary tract infection, site not specified (09/22/24) Subjective Subjective No new complaints other than wanting to go home. Admits to having 24h care daily. Objective Data Objective Data Vital Signs: Vital Signs Temp Pulse Resp BP Pulse Ox O2 Del Method O2 Flow Rate 36.9 C 76 16 129/65 H 91 Room Air 1 09/23/24 04:37 09/23/24 04:37 09/23/24 04:37 09/23/24 04:37 09/23/24 04:37 09/23/24 04:37 09/22/24 22:00 Oxygen Flow Rate (L/min) 1 Oxygen Delivery Method Room Air Weight: 76.612 kg Body Mass Index (BMI) 25.6 Intake & Output: Intake and Output for Last 24 Hours 09/21/24 09/22/24 09/23/24 23:59 23:59 23:59 Intake Total 1050 / 1050 200 / 200 Output Total 250 / 250 Balance 1050 / 1050 -50 / -50 Lab / Micro Data 09/23/24 06:00 09/23/24 06:00 Labs: Laboratory Results - last 24 hr 09/22/24 20:33: WBC 11.6 H, RBC 4.04 L, Hgb 13.2, Hct 39.5, MCV 97.8, MCH 32.7 H , MCHC 33.4, RDW Std Deviation 47.2 H, RDW Coeff of Felix 13.1, Plt Count 259, MPV 12.0, Immature Gran % (Auto) 0.400, Neut % (Auto) 69.5, Lymph % (Auto) 18.8 L, [place] % (Auto) 7.5, Eos % (Auto) 2.9, Baso % (Auto) 0.9, Absolute Neuts (auto) 8.0 H, Absolute Lymphs (auto) 2.17, Nucleated RBC % 0, Sodium 136, Potassium 5.2 H, Chloride 100, Carbon Dioxide 25.5, Anion Gap 11, BUN 13, Creatinine 0.86, Estim Creat Clear Calc 58.83, Est GFR (MDRD) Non-Af 70, BUN/Creatinine Ratio 15.0, Glucose 97, Calcium 8.6, Total Bilirubin 0.31, AST 40 H, ALT 16, Alkaline Phosphatase 87, Total Creatine Kinase 316 H, Total Protein 6.6, Albumin 3.6, Globulin 3.0, Albumin/Globulin Ratio 1.2, Urine Color Cancelled, Urine Clarity Cancelled, Urine pH Cancelled, Ur Specific [place] Cancelled, U Specif Grav (Refrac) Cancelled, Urine Protein Cancelled, Urine Glucose (UA) Cancelled, Urine Ketones Cancelled, Urine Occult Blood Cancelled, Urine Nitrite Cancelled, Urine Bilirubin Cancelled, Urine Urobilinogen Cancelled, Ur Leukocyte Esterase Cancelled, Urine RBC Cancelled, Urine WBC Cancelled, Ur Squamous Epith Cells Cancelled, Ur Transition Epith Cell Cancelled, Ur Renal Epithelial Cell Cancelled, Calcium Oxalate Crystal Cancelled, Uric Acid Crystals Cancelled, Triple Phos Crystals Cancelled, Other Crystals Cancelled, Amorphous Sediment Cancelled, Urine Bacteria Cancelled, Hyaline Casts Cancelled, Fine Granular Casts Cancelled, Coarse Granular Casts Cancelled, Waxy Casts Cancelled, RBC Casts Cancelled, WBC Casts Cancelled, Urine Mucus Cancelled, Urine Trichomonas Cancelled, Urine Yeast Cancelled 09/22/24 21:31: Urine Color Straw, Urine Clarity Cloudy, Urine pH 5.0, Ur Specific [place] 1.015, Urine Protein 15 H, Urine Glucose (UA) Normal, Urine Ketones Negative, Urine Occult Blood 10 H, Urine Nitrite Positive H, Urine Bilirubin Negative, Urine Urobilinogen Normal, Ur Leukocyte Esterase 500 H, Urine RBC 0-5 SEEN, Urine WBC 50-100 SEEN, Ur Squamous Epith Cells 0-5 SEEN, Urine Bacteria 4+, Urine Mucus 0 SEEN 09/23/24 06:00: WBC 10.3, RBC 3.68 L, Hgb 12.0, Hct 35.9 L, MCV 97.6, MCH 32.6 H , MCHC 33.4, RDW Std Deviation 47.4 H, RDW Coeff of Felix 13.2, Plt Count 241, MPV 11.7, Immature Gran % (Auto) 0.400, Neut % (Auto) 70.6 H, Lymph % (Auto) 16.2 L, [place] % (Auto) 9.6, Eos % (Auto) 2.4, Baso % (Auto) 0.8, Absolute Neuts (auto) 7.2, Absolute Lymphs (auto) 1.66, Nucleated RBC % 0, Sodium 140, Potassium 4.1, Chloride 105, Carbon Dioxide 24.4, Anion Gap 10, BUN 13, Creatinine 0.71, Estim Creat Clear Calc 59.41, Est GFR (MDRD) Non-Af 87, BUN/Creatinine Ratio 18.3, G lucose 162 H, Calcium 8.0, Total Bilirubin 0.17, AST 24, ALT 13, Alkaline Phosphatase 80, Total Creatine Kinase 271 H, Total Protein 6.2, Albumin 3.4, Globulin 2.8, Albumin/Globulin Ratio 1.2 Micro: Microbiology 09/22/24 20:33 Mucosa - Nose SARS-CoV-2, Influenza & RSV (PCR) - Final Radiography Diagnostic Testing: Radiology Impression Brain CT 09/22/24 20:50 IMPRESSION: No acute intracranial abnormality. Reading Location: [id number] Chest X-Ray 09/22/24 20:55 IMPRESSION: No acute cardiopulmonary abnormalities. Reading Location: [place] [address] Physical Exam Const alert and no apparent distress Constitutional Narrative: groggy. afebrile. HEENT head/scalp atraumatic and moist oral mucous membranes Resp normal respiratory effort, no retractions, no use of accessory muscles and clear to auscultation bilaterally Cardio regular rate, regular rhythm, S1 normal heart sound and S2 normal heart sound GI normal to inspection, nondistended, normoactive bowel sounds, soft to palpation, non-tender and non-distended Assessment & Plan Assessment/Plan (1) UTI (urinary tract infection): PLAN: On CTX Follow up UCx (2) Debility: PLAN: Poor baseline performance status that is acutely worsened by the UTI. PT OT eval and treat (3) Elevated CPK: PLAN: Mild elevation Trending down. On IVF PLAN: Plan Chronic conditions: * hypothyroidism: levothyroxine, liothyronine * Depression: escitalopram, quetiapine, clonazepam. * dementia: avoid sedating agents VTE prophylaxis: LMWH Charges/Coding Visit Charges Inpatient E&M: 54377 Subs Hosp L2
[2024-09-23] MEDS: Enoxaparin 40 MG/0.4 ML Syringe SC (10:11)
[2024-09-23] MEDS: Etodolac 300 MG Capsule PO ×2 (10:11→20:41)
[2024-09-23] MEDS: Escitalopram Oxalate 10 MG Tablet PO (10:11)
[2024-09-23] MEDS: Potassium Chloride Oral Tablet 20 MEQ PO ×2 (10:11→20:40)
[2024-09-23] MEDS: Polyethylene Glycol 3350 17 GM PACKET PO (10:12)
[2024-09-23] MEDS: amLODIPine 5 MG Tablet PO (10:12)
[2024-09-23] MEDS: Memantine Hydrochloride 5 MG Tablet PO ×2 (10:12→20:42)
[2024-09-23] MEDS: clonazePAM 1 MG Tablet PO ×2 (10:17→20:43)
--- NOTE | 2024-09-23 11:30 | CASEMGMT ---
RN CM Face to Face with patient for initial transition planning/care coordination assessment. RN CM introduced self and role at [facility]. Patient lying in bed, alert and confused. RN CM called daughter Beth to complete assessment. Daughter willing to participate in assessment and is able to answer all questions appropriately. Care providers, pharmacy, and demographics verified. Strata:3 PCP: Debra Specialists: Patient follows with oncologist, Repair Technician; Vp Production Preferred Pharmacy: [facility] Insurance: Suzy CARDENAS Prescription Benefit: yes Living Will/HPOA: yes, Beth Marx LNOK: daughter Living Arrangements: Patient lives alone in an apartment. Patient has 24 hour care givers that assist with ADLs and IADLs but is able to ambulate to the restroom at home. Transportation: Caregivers DME/HHC: Patient has shower chair, raised toilet, adjustable bed, lift chair, grab bars, walker, wheelchair, and medical alert at home. Patient has been to TCU and [facility] in the past. Patient is active with [facility] Will monitor progress with therapy and recommendations. Daughter is agreeable to SNF placement if recommended. Daughter states she has no further needs or concerns at this time. CM to follow for discharge planning needs that may arise. Disposition Plan: TBD, anticipate SNF vs HHC Leena GUAMAN, RN, CM
[2024-09-23] MEDS: QUEtiapine 25 MG Tablet PO (20:40)
[2024-09-23] MEDS: Ceftriaxone 1 GM/50 ML BAG IV (20:43)
[2024-09-24 03:32] VITALS: BMI 25.7
[2024-09-24 03:33] VITALS: BP 129/80; PULSE 69; RESP 18; TEMP 36.2; O2SAT 94
[2024-09-24] MEDS: Pregabalin 75 MG Capsule PO ×3 (05:30→20:14)
[2024-09-24] MEDS: Levothyroxine 125 MCG Tablet PO (05:30)
[2024-09-24] MEDS: Liothyronine 5 MCG Tablet PO (05:31)
--- NOTE | 2024-09-24 08:09 | PN.HOSP_ITS ---
Reason for Visit Reason for Visit: Diagnoses Urinary tract infection, site not specified (09/22/24) Other malaise (09/22/24) Abnormal levels of other serum enzymes (09/22/24) Subjective Subjective No new complaints. Objective Data Objective Data Vital Signs: Vital Signs Temp Pulse Resp BP Pulse Ox O2 Del Method O2 Flow Rate 36.2 C L 69 18 129/80 H 94 Room Air 1 09/24/24 03:33 09/24/24 03:33 09/24/24 03:33 09/24/24 03:33 09/24/24 03:33 09/24/24 03:33 09/22/24 22:00 Oxygen Flow Rate (L/min) 1 Oxygen Delivery Method Room Air Weight: 76.9 kg Body Mass Index (BMI) 25.7 Intake & Output: Intake and Output for Last 24 Hours 09/22/24 09/23/24 09/24/24 23:59 23:59 23:59 Intake Total 1050 / 1050 1970 / 1970 Output Total 300 / 300 100 / 100 Balance 1050 / 1050 1670 / 1670 -100 / -100 Lab / Micro Data 09/23/24 06:00 09/23/24 06:00 Micro: Microbiology 09/22/24 20:33 Mucosa - Nose SARS-CoV-2, Influenza & RSV (PCR) - Final Physical Exam Const alert and no apparent distress Constitutional Narrative: lying in bed. non-toxic. afebrile. HEENT head/scalp atraumatic and moist oral mucous membranes Cardio regular rate and regular rhythm GI normal to inspection, nondistended, normoactive bowel sounds, soft to palpation, non-tender and non-distended Extremity normal to inspection Neuro Sensorium / Orientation: awake and alert Psych affect normal Assessment & Plan Assessment/Plan (1) UTI (urinary tract infection): PLAN: On CTX Follow up UCx shows Citrobacter freundii (2) Debility: PLAN: Poor baseline performance status that is acutely worsened by the UTI. PT OT eval and treat (3) Elevated CPK: PLAN: Mild elevation Trending down. On IVF PLAN: Plan Chronic conditions: * hypothyroidism: levothyroxine, liothyronine * Depression: escitalopram, quetiapine, clonazepam. * dementia: avoid sedating agents VTE prophylaxis: LMWH Disposition: plan for SNF on 09/25 Charges/Coding Visit Charges Inpatient E&M: 60108 Subs Hosp L2
[2024-09-24 08:25] VITALS: O2SAT 96
--- NOTE | 2024-09-24 09:23 | CASEMGMT ---
JERSEY called patient's daughter Patricia to discuss SNF placement as that is what therapy is recommending. Patricia said patient has been to [facility] in the past. JERSEY asked if she would like a referral to [facility] and she would. JERSEY also asked Patricia if she would like a list of facilities that take patient's insurance. Patricia would like a list. JERSEY obtained Patricia's email address- [email or web address]. JERSEY told Patricia patient won't go anywhere until at least tomorrow. JERSEY or someone will be in touch. JERSEY asked Codi d/c retail planning manager to please email a list of facilities to Patricia and send a referral to [facility]. Cristina Vaz RIVET HOLE MACHINE OPERATOR AUDI
--- NOTE | 2024-09-24 09:24 | CASEMGMT ---
Discharge Planning A list of?SNF providers including quality and resource use data and consistent with the patient's preferred geographic region, medical needs, and insurance network were provided via email to pts daughter Patricia ([email or web address]) from the [facility] Guide link. Codi Du, Discharge Planning Asst.
--- NOTE | 2024-09-24 09:48 | CASEMGMT ---
Addendum entered by Codi Du 09/24/24 15:39: [facility] accepted then requested to do an onsite. Onsite has been completed. [facility]. Codi Du DC Planning Asst. Original Note: Discharge Planning Referral sent to [facility]. Codi Du DC Planning Asst.
[2024-09-24] MEDS: Enoxaparin 40 MG/0.4 ML Syringe SC (10:11)
[2024-09-24] MEDS: Polyethylene Glycol 3350 17 GM PACKET PO (10:11)
[2024-09-24] MEDS: Etodolac 300 MG Capsule PO ×2 (10:11→20:14)
[2024-09-24] MEDS: Memantine Hydrochloride 5 MG Tablet PO ×2 (10:11→20:14)
[2024-09-24] MEDS: Escitalopram Oxalate 10 MG Tablet PO (10:11)
[2024-09-24] MEDS: Potassium Chloride Oral Tablet 20 MEQ PO ×2 (10:11→20:13)
[2024-09-24] MEDS: clonazePAM 1 MG Tablet PO ×2 (10:11→20:14)
[2024-09-24 10:12] VITALS: BP 157/86; PULSE 79; RESP 14; TEMP 36.6; O2SAT 95
[2024-09-24] MEDS: amLODIPine 5 MG Tablet PO (10:12)
--- NOTE | 2024-09-24 12:53 | CASEMGMT ---
[facility] initially accepted patient, but then they indicated when patient was there before there were some issues. [facility] would like to come and to an onsite. SW let [facility] know they can come anytime. Cristina Vaz NEWSPAPER REPORTERDebra HUNTLEY
[2024-09-24 15:30] VITALS: BP 124/76; PULSE 80; RESP 16; TEMP 37.1; O2SAT 93
--- NOTE | 2024-09-24 15:44 | CASEMGMT ---
Discharge Planning [facility] confirmed acceptance. Pts daughter (Kerry) updated. Codi Du DC Planning Asst.
[2024-09-24] MEDS: Ceftriaxone 1 GM/50 ML BAG IV (20:14)
[2024-09-24] MEDS: QUEtiapine 25 MG Tablet PO (20:14)
[2024-09-24 21:00] VITALS: BP 126/86; PULSE 88; RESP 18; TEMP 37.2; O2SAT 94
[2024-09-25 03:00] VITALS: BP 152/87; PULSE 76; RESP 16; TEMP 36.7; O2SAT 92
[2024-09-25 03:17] VITALS: BP 152/87; PULSE 76; RESP 16; TEMP 36.7; O2SAT 92
[2024-09-25 03:34] VITALS: BMI 25.2
[2024-09-25] MEDS: Levothyroxine 125 MCG Tablet PO (05:53)
[2024-09-25] MEDS: Pregabalin 75 MG Capsule PO ×2 (05:53→14:52)
[2024-09-25] MEDS: Liothyronine 5 MCG Tablet PO (05:53)
--- NOTE | 2024-09-25 08:03 | PCM.PN.HOSP ---
Reason for Visit Reason for Visit: Diagnoses Urinary tract infection, site not specified (09/22/24) Other malaise (09/22/24) Abnormal levels of other serum enzymes (09/22/24) Subjective Subjective Feels well. No new complaints. Objective Data Objective Data Vital Signs: Vital Signs Temp Pulse Resp BP Pulse Ox O2 Del Method O2 Flow Rate 36.7 C 76 16 152/87 H 92 Room Air 1 09/25/24 03:17 09/25/24 03:17 09/25/24 03:17 09/25/24 03:17 09/25/24 03:17 09/25/24 03:21 09/22/24 22:00 Oxygen Flow Rate (L/min) 1 Oxygen Delivery Method Room Air Weight: 75.1 kg Body Mass Index (BMI) 25.2 Intake & Output: Intake and Output for Last 24 Hours 09/23/24 09/24/24 09/25/24 23:59 23:59 23:59 Intake Total 1970 / 1970 50 / 170 360 / 360 Output Total 300 / 300 500 / 700 600 / 600 Balance 1670 / 1670 -450 / -530 -240 / -240 Lab / Micro Data 09/23/24 06:00 09/23/24 06:00 Micro: Microbiology 09/22/24 21:31 Urine Catheter - Catheter Urine Culture - Preliminary Citrobacter species 09/22/24 20:33 Mucosa - Nose SARS-CoV-2, Influenza & RSV (PCR) - Final Physical Exam Const alert and no apparent distress Constitutional Narrative: Lying in bed. Nontoxic. Psych affect normal Assessment & Plan Assessment/Plan (1) UTI (urinary tract infection): PLAN: On CTX, but the Citrobacter freundii is resistant, will change to meropenem. Will need PICC. Treat for 7-days (2) Debility: PLAN: Poor baseline performance status that is acutely worsened by the UTI. PT OT eval and treat (3) Elevated CPK: PLAN: Mild elevation Trending down. On IVF PLAN: Plan Chronic conditions: hypothyroidism: levothyroxine, liothyronine Depression: escitalopram, quetiapine, clonazepam. dementia: avoid sedating agents VTE prophylaxis: LMWH Disposition: DC to [facility] today.
[2024-09-25 09:17] VITALS: BP 128/74; PULSE 67; RESP 16; TEMP 36.8; O2SAT 96
[2024-09-25] MEDS: Potassium Chloride Oral Tablet 20 MEQ PO (09:55)
[2024-09-25] MEDS: amLODIPine 5 MG Tablet PO (09:56)
[2024-09-25] MEDS: Memantine Hydrochloride 5 MG Tablet PO (09:56)
[2024-09-25] MEDS: Enoxaparin 40 MG/0.4 ML Syringe SC (09:56)
[2024-09-25] MEDS: Etodolac 300 MG Capsule PO (09:56)
[2024-09-25] MEDS: Escitalopram Oxalate 10 MG Tablet PO (09:56)
[2024-09-25] MEDS: clonazePAM 1 MG Tablet PO (10:01)
--- NOTE | 2024-09-25 10:26 | PCM.TXEXTCAR ---
Diet Diet Order/Speech Therapy: INPATIENT Hospital Diet / Speech Therapy Order(s) 09/23/24 15:46 Diet: Regular - General Routine Orders/Code Status Code Status: Full Code DC O2, CPAP, BIPAP needs Home O2 Discharge instructions: No Problem/Diagnosis (1) UTI (urinary tract infection): Status: Acute Code(s): N39.0 - Urinary tract infection, site not specified Plan: On CTX, but the Citrobacter freundii is resistant, will change to meropenem. Will need PICC. Treat for 7-days (2) Debility: Status: Acute Code(s): R53.81 - Other malaise Plan: Poor baseline performance status that is acutely worsened by the UTI. PT OT eval and treat (3) Elevated CPK: Status: Acute Code(s): R74.8 - Abnormal levels of other serum enzymes Plan: Mild elevation Trending down. On IVF Plan Chronic conditions: hypothyroidism: levothyroxine, liothyronine Depression: escitalopram, quetiapine, clonazepam. dementia: avoid sedating agents VTE prophylaxis: LMWH Disposition: DC to [facility] today. Allergies/Procedures Done in Hospital Allergies bacitracin (From Neosporin ([id number])) Allergy (Unknown, Verified 09/22/24 20:06) Unknown neomycin (From Neosporin ([id number])) Allergy (Unknown, Verified 09/22/24 20:06) Unknown polymyxin B (From Neosporin ([id number])) Allergy (Unknown, Verified 09/22/24 20:06) Unknown Antihistamines - Alkylamine Allergy (Verified 09/22/24 20:06) PT UNSURE OF REACTION diphenhydramine (From Benadryl) Allergy (Verified 09/22/24 20:06) PT UNSURE OF REACTION Procedures: None Type of Care/Length of Stay Estimated LOS: Convalescent Care Less Than 30 days Type of Care Needed: Skilled Rehab Potential: Fair Prognosis: Fair Additional Orders/Day of Discharge Day of Discharge: 09/25/24 Dietary and Speech Recommendations Dietitian Recommendations/Changes: Adjust to liberal regular diet. Will monitor weight trends. Discharge Plan Admission Admit Date/Time: 09/22/24 22:45 Primary Reason for Your Visit: UTI. Debility Attending Provider: Froy Velázquez Primary Care Provider: Erica Richardson Consulting Providers: Aggie Bolton Discharge Orders/Prescriptions Prescriptions: New meropenem 1 gram Recon Soln 1 g IV Q8 Qty: 20 0RF Continued dexamethasone sodium phosphate 0.1 % drops 1 drp ophthalmic (eye) DAILY Rx Instructions: RIGHT EYE acetaminophen 500 mg capsule 500 mg PO BID polyethylene glycol 3350 [ClearLax] 17 gram/dose powder 17 g PO DAILY famotidine [Pepcid] 20 mg tablet 20 mg PO QHS pyridoxine (vitamin B6) 100 mg tablet 100 mg PO DAILY cholecalciferol (vitamin D3) 25 mcg (1,000 unit) capsule 25 mcg PO DAILY magnesium oxide 500 mg tablet 500 mg PO DAILY memantine 5 mg tablet 5 mg PO BID nabumetone 750 mg tablet 750 mg PO BID escitalopram oxalate [Lexapro] 10 mg tablet 10 mg PO DAILY amlodipine 5 mg tablet 5 mg PO DAILY meclizine 25 MG tablet 25 mg PO TID calcitriol 0.5 mcg capsule 0.5 mcg PO DAILY Rx Instructions: please discontinue any rx for calcitriol by an other doctors albuterol sulfate [Proventil HFA] 90 mcg/actuation HFA aerosol inhaler 2 puff inhalation Q6H PRN (Reason: shortness of breath or wheezing) Qty: 8.5 0RF quetiapine 25 mg tablet 25 mg PO QHS liothyronine 5 mcg tablet 5 mcg PO DAILY clonazepam 1 mg tablet 1 mg PO BID Qty: 6 0RF pregabalin 75 mg capsule 75 mg PO TID Qty: 9 0RF Discontinued valacyclovir 1 gram tablet 1,000 mg PO DAILY levofloxacin 750 mg Tablet 750 mg PO DAILY@0600 Qty: 6 0RF quetiapine 100 mg tablet 25 mg PO DAILY potassium chloride 20 mEq tablet extended release 20 meq PO BID hydrocodone-acetaminophen 10-325 mg tablet PO TID levothyroxine 125 mcg tablet 125 mcg PO DAILY Qty: 90 0RF Referrals / Follow Up: Erica Richardson DO [Primary Care Provider] - Within 2 Weeks Disposition Disposition (needs filled in before D/C Order can be placed): [facility]
--- NOTE | 2024-09-25 10:32 | DS.PCM_ITS ---
Providers Date of Admission: 09/22/24 Primary Care Physician: Dr. Erica Richardson DO Reason For Visit: ADULT FTT, UTI, MILD RHABDO Diagnosis Discharge Diagnosis (1) UTI (urinary tract infection): Status: Acute Code(s): N39.0 - Urinary tract infection, site not specified Plan: On CTX, but the Citrobacter freundii is resistant, will change to meropenem. Will need PICC. Treat for 7-days (2) Debility: Status: Acute Code(s): R53.81 - Other malaise Plan: Poor baseline performance status that is acutely worsened by the UTI. PT OT eval and treat (3) Elevated CPK: Status: Acute Code(s): R74.8 - Abnormal levels of other serum enzymes Plan: Mild elevation Trending down. On IVF Plan Chronic conditions: * hypothyroidism: levothyroxine, liothyronine * Depression: escitalopram, quetiapine, clonazepam. * dementia: avoid sedating agents VTE prophylaxis: LMWH Disposition: DC to [facility] today. Medications at Discharge Home Medications dexamethasone sodium phosphate 0.1 % eye drops 1 drp ophthalmic (eye) DAILY glaucoma 03/09/21 clonazepam 1 mg tablet 1 mg PO BID #6 tabs 03/03/22 pregabalin 75 mg capsule 75 mg PO TID PAIN #9 caps 03/03/22 amlodipine 5 mg tablet 5 mg PO DAILY 11/22/22 calcitriol 0.5 mcg capsule 0.5 mcg PO DAILY 11/22/22 cholecalciferol (vitamin D3) 25 mcg (1,000 unit) capsule 25 mcg PO DAILY SUPPLEMENT 11/22/22 escitalopram oxalate 10 mg tablet (Lexapro) 10 mg PO DAILY ANXIETY 11/22/22 magnesium oxide 500 mg PO DAILY SUPPLEMENT 11/22/22 meclizine 25 mg tablet 25 mg PO TID Dizziness 11/22/22 memantine 5 mg tablet 5 mg PO BID 11/22/22 nabumetone 750 mg tablet 750 mg PO BID 11/22/22 albuterol sulfate 90 mcg/actuation aerosol inhaler (Proventil HFA) 2 puff inhalation Q6H PRN shortness of breath or wheezing #8.5 grams 11/23/22 acetaminophen 500 mg capsule 500 mg PO BID 05/19/23 famotidine 20 mg tablet (Pepcid) 20 mg PO QHS 05/19/23 polyethylene glycol 3350 17 gram/dose oral powder (ClearLax) 17 g PO DAILY 05/19/23 pyridoxine (vitamin B6) 100 mg tablet 100 mg PO DAILY 05/19/23 liothyronine 5 mcg tablet 5 mcg PO DAILY 07/04/24 quetiapine 25 mg tablet 25 mg PO QHS 07/04/24 meropenem 1 gram intravenous solution 1 g IV Q8 #20 ea 09/25/24 Hospital Course Operations None Procedures PICC line placement Summary of Care Provided Minutes Spent on Discharge: 32 Hospital Course: Patient presents with weakness from home. Patient has poor performance status at baseline but but was much weaker. Patient was found to have UTI. Started on ceftriaxone but culture grew out Citrobacter that was resistant to ceftriaxone and patient will be discharged with meropenem for 7 days. Patient be discharged to [facility] in stable condition. Weight / BMI Weight Weight: 75.1 kg Body Mass Index (BMI) 25.2 ABG / Lab / Microbiology Data 09/23/24 06:00 09/23/24 06:00 Microbiology: Microbiology 09/22/24 21:31 Urine Catheter - Catheter Urine Culture - Preliminary Citrobacter species 09/22/24 20:33 Mucosa - Nose SARS-CoV-2, Influenza & RSV (PCR) - Final D/C Instructions Discharge Diet: No restrictions DC O2, CPAP, BIPAP Needs Home O2 Discharge instructions: No Meaningful Use Info Meaningful Use Meaningful Use Diagnoses (Choose all that apply): None applicable Ischemic Stroke Statin Dosing Therapy Reference: STATIN DOSE THERAPY REFERENCE: * Patients > 75 years receive moderate or high dose statin therapy. * Patients 75 years or YOUNGER should receive HIGH intensity statin dose unless contraindicated. You will be required to document reason for non-treatment if statin daily dose does not meet guidelines. HIGH DOSE STATIN THERAPY DAILY Atorvastatin > than or = to 40 mg Rosuvastatin > than or = to 20 mg Amlodipine + Atorvastatin > than or = to 2.5/40 mg Ezetimibe + Simvastatin 10/80 mg Simvastatin 80mg Discharge Plan Admission Admit Date/Time: 09/22/24 22:45 Primary Reason for Your Visit: UTI. Debility Attending Provider: Froy Velázquez Primary Care Provider: Erica Richardson Consulting Providers: Aggie Bolton Discharge Orders/Prescriptions Prescriptions: New meropenem 1 gram Recon Soln 1 g IV Q8 Qty: 20 0RF Continued dexamethasone sodium phosphate 0.1 % drops 1 drp ophthalmic (eye) DAILY Rx Instructions: RIGHT EYE acetaminophen 500 mg capsule 500 mg PO BID polyethylene glycol 3350 [ClearLax] 17 gram/dose powder 17 g PO DAILY famotidine [Pepcid] 20 mg tablet 20 mg PO QHS pyridoxine (vitamin B6) 100 mg tablet 100 mg PO DAILY cholecalciferol (vitamin D3) 25 mcg (1,000 unit) capsule 25 mcg PO DAILY magnesium oxide 500 mg tablet 500 mg PO DAILY memantine 5 mg tablet 5 mg PO BID nabumetone 750 mg tablet 750 mg PO BID escitalopram oxalate [Lexapro] 10 mg tablet 10 mg PO DAILY amlodipine 5 mg tablet 5 mg PO DAILY meclizine 25 MG tablet 25 mg PO TID calcitriol 0.5 mcg capsule 0.5 mcg PO DAILY Rx Instructions: please discontinue any rx for calcitriol by an other doctors albuterol sulfate [Proventil HFA] 90 mcg/actuation HFA aerosol inhaler 2 puff inhalation Q6H PRN (Reason: shortness of breath or wheezing) Qty: 8.5 0RF quetiapine 25 mg tablet 25 mg PO QHS liothyronine 5 mcg tablet 5 mcg PO DAILY clonazepam 1 mg tablet 1 mg PO BID Qty: 6 0RF pregabalin 75 mg capsule 75 mg PO TID Qty: 9 0RF Discontinued valacyclovir 1 gram tablet 1,000 mg PO DAILY levofloxacin 750 mg Tablet 750 mg PO DAILY@0600 Qty: 6 0RF quetiapine 100 mg tablet 25 mg PO DAILY potassium chloride 20 mEq tablet extended release 20 meq PO BID hydrocodone-acetaminophen 10-325 mg tablet PO TID levothyroxine 125 mcg tablet 125 mcg PO DAILY Qty: 90 0RF Referrals / Follow Up: Erica Richardson DO [Primary Care Provider] - Within 2 Weeks Disposition Disposition (needs filled in before D/C Order can be placed): [facility] Charges/Coding Visit Charges Inpatient E&M: 65359 Disch Hosp >30min
[2024-09-25] MEDS: Meropenem 1 GM in 0.9% Normal Saline (100mL MB+) 100 ML IV (10:42)
[2024-09-25] MEDS: 0.9% Saline Lock 10 ML Syringe IV (10:43)
--- NOTE | 2024-09-25 11:03 | CASEMGMT ---
Patient will be going to [place] today. SW completed a 7000 in HENS. Physicians will transport patient via cot. Plan: d/c to [place] under skilled level of care on a convalescent stay. Physicians will transport patient via cot. Cristina HUNTLEY
--- NOTE | 2024-09-25 13:53 | CASEMGMT ---
Discharge Planning Discharge orders, signed med list, and transport time sent to [facility]. Physicians will transport pt by cot at 4:30p. Nursing, SW, pt, and her daughter (Beth) updated. Codi Du DC Planning Asst.
[2024-09-25 15:00] VITALS: BP 123/72; PULSE 82; RESP 16; TEMP 37.1; O2SAT 94
== END 2024-09-25 17:48 | disposition skilled nursing facility (03) | DRG 690 ==
LOC: ED 22:16 → PCU 23:17
PROVIDERS: Admitting Provider Family Medicine; Emergency Provider Emergency Medicine; PCP Family Medicine
DX: N39.0 Urinary tract infection, site not specified (principal); F03.918 Unspecified dementia, unspecified severity, with other behavioral disturbance; F03.94 Unspecified dementia, unspecified severity, with anxiety; E89.0 Postprocedural hypothyroidism; I10 Essential (primary) hypertension; F32.A Depression, unspecified; F39 Unspecified mood [affective] disorder; K21.9 Gastro-esophageal reflux disease without esophagitis; R53.1 Weakness; Z87.891 Personal history of nicotine dependence; R53.83 Other fatigue; R53.81 Other malaise
CPT/HCPCS: 36415; 36569; 70450; 71045; 80053; 81001; 82550; 85025; 87077; 87086; 87088; 87186; 87631; 93005; 94668; 97116; 97163; 97166; 97530; 97535; 97802; 99285; J2185; A4216

== ENCOUNTER 2024-09-26 13:16 | Emergency (ER) | payer MEDICARE, BC, SELFPAY ==
[2024-09-26 13:17] VITALS: BP 149/70; PULSE 76; RESP 16; TEMP 36.3; O2SAT 96; BMI 25.4
--- NOTE | 2024-09-26 13:35 | EX.ED.DYSGE1 ---
HPI History of Present Illness Chief Complaint: Fall Narrative Narrative: Patient is a 78-year-old female past medical anxiety, depression, hypoparathyroidism, tobacco use, alcohol abuse, arthritis who presented to the emergency department chief complaint of concern for a right clavicle fracture after a fall last night. According to family at bedside she attempted to get up on her own and she fell. Patient states that she did not hit her head she did not pass out she members entire event. Patient according to family bedside states that she just arrived to the rehab facility as she was just admitted to the hospital here for recurrent UTIs and generalized weakness they deny any blood thinning medications. [facility] Medical History Anxiety and depression Hypoparathyroidism after procedure Back problem Frequent falls Benzodiazepine dependence Opioid dependence Melanoma Tobacco abuse Hypothyroidism GERD (gastroesophageal reflux disease) Anemia Alcohol abuse Hypertension Multiple rib fractures Subdural hematoma Vitamin D deficiency Skin cancer Rheumatoid arthritis High cholesterol Calcium deficiency Glaucoma Breast cancer Arthritis Home Medications ?Medication ?Instructions ?Recorded ?Last Taken ?Type dexamethasone sodium phosphate 0.1 1 drp ophthalmic (eye) DAILY 03/09/21 11/22/22 History % eye drops glaucoma amlodipine 5 mg tablet 5 mg PO DAILY 11/22/22 11/22/22 History calcitriol 0.5 mcg capsule 0.5 mcg PO DAILY 11/22/22 11/22/22 History cholecalciferol (vitamin D3) 25 25 mcg PO DAILY SUPPLEMENT 11/22/22 11/22/22 History mcg (1,000 unit) capsule escitalopram oxalate 10 mg tablet 10 mg PO DAILY ANXIETY 11/22/22 11/22/22 History (Lexapro) magnesium oxide 500 mg PO DAILY SUPPLEMENT 11/22/22 11/22/22 History meclizine 25 mg tablet 25 mg PO TID Dizziness 11/22/22 11/22/22 History memantine 5 mg tablet 5 mg PO BID 11/22/22 11/22/22 History nabumetone 750 mg tablet 750 mg PO BID 11/22/22 11/22/22 History albuterol sulfate 90 mcg/actuation 2 puff inhalation Q6H PRN 11/23/22 Unknown Rx aerosol inhaler (Proventil HFA) shortness of breath or wheezing #8.5 grams acetaminophen 500 mg capsule 500 mg PO BID 05/19/23 Unknown History famotidine 20 mg tablet (Pepcid) 20 mg PO QHS 05/19/23 Unknown History polyethylene glycol 3350 17 17 g PO DAILY 05/19/23 Unknown History gram/dose oral powder (ClearLax) pyridoxine (vitamin B6) 100 mg 100 mg PO DAILY 05/19/23 Unknown History tablet liothyronine 5 mcg tablet 5 mcg PO DAILY 07/04/24 Unknown History quetiapine 25 mg tablet 25 mg PO QHS 07/04/24 Unknown History clonazepam 1 mg tablet 1 mg PO BID 30 days #60 tabs 09/25/24 Unknown Rx meropenem 1 gram intravenous 1 g IV Q8 #20 ea 09/25/24 Unknown Rx solution pregabalin 75 mg capsule 75 mg PO TID PAIN 30 days #90 caps 09/25/24 Unknown Rx Allergy/AdvReac Type Severity Reaction Status Date / Time bacitracin (From Neosporin Allergy Unknown Unknown Verified 09/22/24 20:06 ([id number])) neomycin (From Neosporin Allergy Unknown Unknown Verified 09/22/24 20:06 ([id number])) polymyxin B (From Neosporin Allergy Unknown Unknown Verified 09/22/24 20:06 ([id number])) Antihistamines - Alkylamine Allergy PT UNSURE Verified 09/22/24 20:06 OF REACTION diphenhydramine (From Allergy PT UNSURE Verified 09/22/24 20:06 Benadryl) OF REACTION Family History Unknown Thyroid disorder Cancer High cholesterol Arthritis Mother Cancer Diabetes Father , Father at the age of 50 from successful suicide attempt. Suicidal intent Other Alcohol abuse Anxiety Depression Heart disease Hypertension Mental disorder Parkinson disease Psychiatric care Surgical History Status post glaucoma surgery H/O mastectomy H/O thyroidectomy Social History household members: none housing: house Smoking Status: Former smoker second hand exposure: Yes alcohol intake: former substance use type: does not use ROS ROS ED ROS Narrative Constitutional: Denies any fevers, chills, headaches Eyes: No change in vision double vision blurry vision Cardiovascular: Denies chest pain or palpitations Respiratory: Denies coughing wheezing shortness of breath Abdomen: Denies abdominal pain : Denies any urinary symptoms Neurological: Complains of generalized weakness that this been going on since her recent hospitalization hence why she is at the facility for rehab denies any numbness or tingling Musculoskeletal: Complains of right shoulder/clavicle pain Skin: Denies rashes or lesions EXAM Physical Exam Narrative Exam Narrative: General: Patient lying in bed rest comfortably did not appear to be acute distress Head: Atraumatic and normocephalic Eyes: PERRL bilaterally, EOMI bilateral, no conjunctival injection noted Neck: Soft, supple, trachea midline Cardiovascular: Regular in rhythm Respiratory: Clear to auscultation bilaterally Abdomen: No tenderness palpation, soft Musculoskeletal: Patient is tender to palpation over the left clavicle region, all the bony prominences palpated joints taken through full range of motion no pain elicited Extremities: +4/5 strength noted in the bilateral upper and lower extremities, radial pulses +2/4 in the bilateral extremities Neurological: Patient follow commands and that she was at [facility] the year is 2024. Sensation grossly intact in the median, ulnar, radial and axillary nerve distribution bilaterally Skin: Warm, dry, tact no rashes or lesions noted Const Vital Signs: 09/26/24 13:17 09/26/24 13:40 Temperature 97.4 F L Temperature Source Oral Pulse Rate 76 Respiratory Rate 16 Respiratory Effort Normal Respiratory Depth Normal Blood Pressure 149/70 H Blood Pressure Mean 96 Pulse Ox 96 Oxygen Delivery Method Room Air Room Air MDM MDM MDM Narrative Medical decision making narrative: Patient is a 78-year-old female who presented to the Emergency Department chief complaint of fall and concern for left clavicle fracture. The differential diagnose includes but not limited to left clavicle fracture, proximal humerus fracture. Once workup is obtained reviewed she will be reevaluated Patient's x-ray of her left shoulder reviewed by myself by radiology showed a fracture of the distal third of the clavicle. Patient left clavicle x-ray was reviewed by myself by radiology which showed fracture of the distal third of the clavicle with 8 mm inferior displacement of the distal fragment fracture. Discussed case with Dr. Obregon who states that she can be placed in a sling and follow-up with Dr. Obregon in the out patient setting. Patient was placed in a sling she will be advised to follow-up with Dr. Obregon in the outpatient setting. She was encouraged to return with worsening symptoms and concerns. She was discharged in the stable condition with all question concerns answered. Long member at bedside is agreeable this plan. Radiography Diagnostic Testing: Clinical Impression(s) from Imaging Studies Clavicle X-Ray 09/26/24 13:44 IMPRESSION: Distal left clavicle fracture Reading Location: [facility] Shoulder X-Ray 09/26/24 13:44 IMPRESSION: Fracture in the distal 3rd of the clavicle. Reading Location: [facility] Discharge Plan Triage Chief Complaint: Fall ED Provider: Franky Olivas Dx/Rx/DC Orders Clinical Impression: Clavicle fracture, Fall Prescriptions: No Action dexamethasone sodium phosphate 0.1 % drops 1 drp ophthalmic (eye) DAILY Rx Instructions: RIGHT EYE acetaminophen 500 mg capsule 500 mg PO BID polyethylene glycol 3350 [ClearLax] 17 gram/dose powder 17 g PO DAILY famotidine [Pepcid] 20 mg tablet 20 mg PO QHS pyridoxine (vitamin B6) 100 mg tablet 100 mg PO DAILY cholecalciferol (vitamin D3) 25 mcg (1,000 unit) capsule 25 mcg PO DAILY magnesium oxide 500 mg tablet 500 mg PO DAILY memantine 5 mg tablet 5 mg PO BID nabumetone 750 mg tablet 750 mg PO BID escitalopram oxalate [Lexapro] 10 mg tablet 10 mg PO DAILY amlodipine 5 mg tablet 5 mg PO DAILY meclizine 25 MG tablet 25 mg PO TID calcitriol 0.5 mcg capsule 0.5 mcg PO DAILY Rx Instructions: please discontinue any rx for calcitriol by an other doctors albuterol sulfate [Proventil HFA] 90 mcg/actuation HFA aerosol inhaler 2 puff inhalation Q6H PRN (Reason: shortness of breath or wheezing) Qty: 8.5 0RF quetiapine 25 mg tablet 25 mg PO QHS liothyronine 5 mcg tablet 5 mcg PO DAILY meropenem 1 gram Recon Soln 1 g IV Q8 Qty: 20 0RF clonazepam 1 mg tablet 1 mg PO BID 30 Days Qty: 60 0RF pregabalin 75 mg capsule 75 mg PO TID 30 Days Qty: 90 0RF Primary Care Provider: Sheyla Mcgee Referrals: Erica Richardson DO [Med Staff - Active Staff] - Parvez Obregon MD [Med Staff - Active Staff] - Activity Restrictions/Additional Instructions: Follow-up with Dr. Obregon in the outpatient setting. Wear the sling. Return with worsening symptoms or any concerns Print Language: Nepali Disposition Disposition: Home, Self Care
--- NOTE | 2024-09-26 13:44 | RAD_ITS ---
PROCEDURE: SHOULDER MIN 2 VIEWS 09/26/2024 REASON FOR EXAM: FALL Initial encounter TECHNIQUE: 4 view of the left shoulder FINDINGS: Healed proximal humerus fracture. Fracture in the distal 3rd of the clavicle. Previous open reduction internal fixation of rib fractures with plates and screws. No shoulder dislocation. Glenohumeral joint and bones intact Other: RAD/Shoulder min 2 Views IMPRESSION: Fracture in the distal 3rd of the clavicle. Reading [facility]
--- NOTE | 2024-09-26 13:44 | RAD_ITS ---
PROCEDURE: CLAVICLE 09/26/2024 REASON FOR EXAM: FALL Initial encounter TECHNIQUE: 2 view(s) of the left clavicle COMPARISON: No prior left clavicle radiographs. FINDINGS: LEFT CLAVICLE: Fracture in the distal 3rd of the clavicle with the parent 8 mm inferior displacement of the distal fracture fragment, been a apposition RAD/Clavicle IMPRESSION: Distal left clavicle fracture Reading [facility]
--- NOTE | 2024-09-26 14:15 | CM.ED ---
Social Work: Date of referral: 09/26/24 Reason for referral: Request for Advanced Care Directives (ACD's) Referred by: Social Work Identification Patient provided consent to social work visit. Patient's daughter, Beth was also present. aged or disabled care worker asked patient's daughter to bring a copy of patient's ACD's to the ED the next time patient presents to the ED or the next time Beth is close to the hospital. Welding Tester told Beth that she can drop off a copy at the triage area which Beth stated she would do. Karen Streeter, DIGITAL INTERN, MAINTENANCE CLERK
--- OUTSIDE RECORDS SUMMARY | 2024-09-26 14:21 | XMS RPT_ITS | CCD ---
Author Organization [facility] Care Team Providers Care Vp Integrity Name Role Phone Unavailable Primary Care Provider UnavailErica Gee DO Primary Care Provider Dr. Erica Richardson Primary Care Provider [phone] Dr. Erica Richardson Referring Provider Dr. Don Gallegos Attending Provider Dr. Don Gallegos Attending Provider Alcides INTERNET SALESPERSON, INTERNET SALESPERSON-C Aiden Attending Provider Unav Dr. Erica Batista Primary Care Provider Erica Richardson DO Primary Care Provider Erica Richardson DO Primary Care Provider [phone] ERICA RICHARDSON Primary Care Unavailable DEBRA, ERICA [...] Dr. Erica Richardson Primary Care Provider Alcides INTERNET SALESPERSON, INTERNET SALESPERSON-C Aiden Attending Provider Unav Erica Batista DO Primary Care Provider Dr. Froy Simmons Attending Provider Dr. Erica Richardson Primary Care Provider Dr. Froy Simmons Attending Provider Liborioys, Dr. [...] Provider Anupama DO, Dr. Mcduffie Emergency Provider Malhattie DO, Dr. Maldonado Primary Care Provider Debra DO, Dr. Maldonado Attending Provider Malhattie DO, Dr. Maldonado Referring Provider Anupama DO, Dr. Mcduffie Attending Provider Leia Martinez Other Provider Unavailable Malys, Erica Primary Care Unavailable Cardona, Jorge Attending Unavailable Malys, Erica Primary Care Unavailable Schwiger, Froy Attending Unavailable Jopperi, Froy Attending Unavailable White, Aggie L Admitting Unavailable White, Aggie L Consulting Unavailable Malys, Erica Primary Care Unavailable Jopperi, Froy Consulting Unavailable White, Aggie L Attending Unavailable Cheikh Ybarra Attending Unavailable Malys, Erica Primary Care Unavailable Malys, Erica Referring Unavailable Malys, Erica Attending Unavailable Malys, Erica Primary Care Unavailable Malys, Erica Referring Unavailable Malys, Erica Attending Unavailable Malys, Erica Primary Care Unavailable Malys, Erica Referring Unavailable Malys, Erica Attending Unavailable Malys, Erica Primary Care Unavailable Jopperi, Froy Attending Unavailable White, Aggie L Consulting Unavailable Malys, Erica Primary Care Unavailable White, Aggie L Admitting Unavailable Malys, Erica Attending Unavailable Malys, Erica Primary Care Unavailable Malys, Erica Referring Unavailable Malys, Erica Attending Unavailable Malys, Erica Primary Care Unavailable Malys, Erica Primary Care Unavailable Malys, Erica Attending Unavailable Malys, Erica Primary Care Unavailable Malys, Erica Referring Unavailable Malys, Erica Attending Unavailable Malys, Erica Primary Care Unavailable Malys, Erica Referring Unavailable Leia Martinez Consulting Unavailable Malys, Erica Attending Unavailable Malys DO, Dr. Maldonado Primary Care Provider Debra DO, Dr. Maldonado Attending Provider [phone] Alexis Quijano MD Emergency Provider [phone] Aggie Bolton MD Admit Provider [phone] Dr. Aggie Bolton MD Other Provider Dr. Froy Velázquez DO Attending Provider Dr. Froy Velázquez DO Other Provider [phone] Allergies Allergy Classification Reported Allergen(s) Allergy Type Date of Onset Reaction(s) Facility (1 source) Antihistamines, Diphenhydramine-Ty pe Propensity to adverse reactions to drug 04-16-20 20 Palpitations [place] (20 sources) bacitracin / neomycin / polymyxin b; Translations: [NEOMYCIN-BACITRAC IN-POLYMYXIN] Drug Allergy 08-15-19 07 [facility] Work Phone: (20 sources) diphenhydrAMINE; Translations: [DIPHENHYDRAMINE HCL] Drug Allergy 10-28-19 13 [facility] (20 sources) Propylamine derivative antihistamine; Translations: [ANTIHISTAMINES - ALKYLAMINE] Propensity to adverse reactions 10-07-19 08 Intolerance [facility] (20 sources) Bacitracin Drug Allergy 08-08-19 22 Unknown [facility] (20 sources) Neomycin Drug Allergy 08-08-19 22 Unknown [facility] (20 sources) Polymyxin B Drug Allergy 08-08-19 22 Unknown [facility] (20 sources) diphenhydrAMINE Drug Allergy 01-11-20 22 PT UNSURE OF REACTION [facility] (20 sources) Antihistamines - Alkylamine Allergy to substance 01-11-20 22 PT UNSURE OF REACTION [facility] (1 source) Bacitracin Drug Allergy 09-23-19 25 [facility] (1 source) diphenhydrAMINE Drug Allergy 09-23-19 25 [facility] (1 source) Neomycin Drug Allergy 09-23-19 25 [facility] (1 source) Antihistamines - Alkylamine Drug allergy (disorder) 09-23-19 25 [facility] (1 source) polymyxin B Drug allergy (disorder) 09-23-19 25 [facility] Medications Current Medications Medication Drug Class(es) Dates Sig (Normalized) Sig (Original) acetaminophen 500 mg oral capsule (20 sources) Start: 05-19-2023 take 1 capsule by mouth twice daily Acetaminophen 500 mg capsule Active 500 mg PO TWICE A DAY May 19, 2023 1:00am Start: 10-17-2021 take 3 tablets by mo ut every six hours as needed acetaminophen (TYLENOL) 325 mg tablet Take 3 tablets by mouth every 6 hours as needed for pain. 10/17/2021 Active Start: 04-16-2020 acetaminophen (TYLENOL) tablet 650 mg Comment on above: Take 3 tablets by mo uth every 6 hours as needed for pain. [id number] 200 actuat albuterol 0.09 mg/actuat metered dose inhaler (8 sources) beta2-Adrenergic Agonist Start: 11-23-2022 Albuterol Sulfate [...] 2022 12:00am amLODIPine 5 mg oral tablet (9 sources) Dihydropyridine Calcium Channel Carli Start: 11-22-2022 [...] on above: Take 1 capsule by mo [facility] once daily. Calcium Carb And Citrate-Vitd3 (Citracal-D3 [...] 3:58pm Start: 08-07-2021 take 1 tablet by [facility] once daily Calcium Carb And Citrate-Vitd3 (Citracal-D3 Slow Release) 600 mg-12.5 mcg (500 unit) tablet extended release Active 1 TABLET PO DAILY August 06, 2021 11:00pm Start: 08-07-2021 take 1 tablet by [facility] once daily Calcium Carb And Citrate-Vitd3 (Citracal-D3 [...] mg oral tablet (20 sources) Benzodiazepine Start: End: take 1 tablet by mouth twice daily Clonazepam 1 mg tablet Active 1 mg PO TWICE A DAY September 25, 2024 12:09pm October 24, 2024 12:00am Start: 08-01-2020 End: 03-03-2022 take 1 tablet [...] Comment on above: Take one tablet by out four times daily as needed. Take 1 [...] needed. docusate sodium 50 mg / sennosides, [facility] 8.6 mg oral tablet (1 source) Start: 0 sennosides-docusate sodium (SENOKOT-S) 8.6-50 MG tablet 2 tablet escitalopram 10 mg oral tablet (9 sources) Serotonin Reuptake Inhibitor Start: 3 take [...] mg/ml injection (1 source) Arteriolar Vasodilator Start: 04-16-20 hydrALAZINE (APRESOLINE) injection 10 mg 4 ml labetalol hydrochloride 5 mg/ml cartridge (1 source) beta-Adrenergic Carli Start: 04-16-20 labetalol (NORMODYNE;TRANDATE ) injection 10 mg lidocaine 0.04 mg/mg medicated patch (1 source) Antiarrhythmic, Amide Local Anesthetic Start: 10-18-19 End: 10-23-19 apply 1 dose transdermal route once daily lidocaine (SALONPAS) 4 % patch Apply 1 Patch as directed once daily for 5 days. 5 Patch 0 10/17/2021 10/22/2021 Active Comment on above: Apply 1 Patch as dir ected once daily for 5 days. liothyronine sodium 0.005 mg oral tablet (13 sources) l-Triiodothyronine Start: 07-05-19 take 1 tablet by mouth once daily [...] directed. magnesium oxide 500 mg oral tablet (9 sources) Start: 11-22-2022 take 1 tablet by mouth once daily Magnesium Oxide 500 mg tablet Active 500 mg PO DAILY November 22, 2022 12:00am Start: 11-22-2022 take 1000 mg by mouth once renay ly Magnesium Oxide Active 1000 MG PO DAILY November 22, 2022 12:00am meclizine hydrochloride 25 mg oral tablet (20 sources) Antiemetic Start: 11-22-2022 take 25 mg by mouth once daily Meclizine Active 25 MG PO DAILY November 22, 2022 12:00am Start: 10-02-2021 take 1 tablet by aileen th three times daily Meclizine 25 MG tablet [...] Take 1 tablet by aileen th once daily for 15 days. Take with food. memantine hydrochloride 5 mg oral tablet (20 sources) S-odqufr-C-aspartate Receptor Antagonist Start: 3 take 1 tablet by mouth twice daily Memantine 5 mg tablet Active 5 mg PO TWICE A DAY November 22, 2022 12:00am Start: 10-17-2021 take 1 tablet by aileen th once daily at bedtime memantine (NAMENDA) 5 mg tablet Take 1 tablet by mouth daily at bedtime. 10/17/2021 Active Comment on above: Take 1 tablet by aileen th daily at bedtime. meropenem 1000 mg injection (1 source) Penem Antibacterial Start: 09-26-19 take 1 g intravenously every eight hours Meropenem 1 gram Recon Soln Active 1 g IV EVERY 8 HOURS September 25, 2024 12:00am 1 ml morphine sulfate 4 mg/ml cartridge (1 source) Opioid Agonist Start: 04-16-20 morphine (PF) injection 1 mg nabumetone 750 mg oral tablet (11 sources) Nonsteroidal Anti-inflammatory Drug Start: 11-23-19 take 1 tablet by mouth twice daily Nabumetone 750 mg tablet Active 750 mg PO TWICE A DAY November 22, 2022 12:00am Start: 10-05-2021 take 1 tablet by aileen th twice daily nabumetone (RELAFEN) 750 mg tablet Take 750 mg by mouth twice daily. 0 10/05/2021 Suspended Comment on above: Take 750 mg by mouth twice daily. PHENobarbital 64.8 mg oral tablet (2 sources) Start: 04-16-2020 PHENobarbital (LUMINAL) tablet 64.8 mg Start: 04-16-2020 End: 04-16-2020 PHENobarbital (LUMINAL) inje ction 32.5 mg polyethylene glycol [id number] mg powder for oral solution (20 sources) [...] Drop in both e yes as needed. pregabalin 75 mg oral capsule (20 sources) Start: 03-03-2022 End: 09-25-2024 take 1 capsule by mouth three times daily Pregabalin 75 mg capsule Active 75 mg PO THREE TIMES A DAY September 25, 2024 12:10pm October 24, 2024 12:00am Start: 03-08-2021 End: 11-22-2022 take 1 capsule [...] 09, 2019 8:43pm take 1 capsule by mo uth twice daily pregabalin (LYRICA) 75 mg capsule Take 75 mg by mouth twice daily. Active Comment on above: Take 50 mg by mouth twice daily. Take 75 mg by mouth twice daily. Promethazine (1 source) Phenothiazine Start: 04-16-20 20 promethazine (PHENERGAN) tablet 12.5 mg QUEtiapine 25 mg oral tablet (13 sources) Atypical Antipsychotic Start: 07-05-19 25 take 1 tablet by mouth at bedtime Quetiapine 25 mg tablet Active 25 mg PO AT BEDTIME July 04, 2024 12:00am Start: 11-22-2022 End: 09-25-2024 Quetiapine 100 mg tablet Dis continued 25 mg PO DAILY November 22, 2022 12:00am September 25, 2024 10:29am Start: 11-22-2022 take 25 mg by mouth once daily Quetiapine Active 25 MG PO DAILY November 22, 2022 12:00am Start: 11-22-2022 take 100 mg by mouth once daily Quetiapine Active 100 MG PO DAILY November [...] take 1 tablet by mouth twice daily sulfamethoxazole-t rimethoprim (BACTRIM DS) 800-160 mg per tablet Take 1 tablet by mouth twice daily for 3 days. 6 tablet 0 10/17/2021 10/20/2021 Active Comment on above: Take 1 tablet by aileen twice daily for 3 days. thiamine hydrochloride 100 mg/ml injectable solution (1 source) Start: 04-16-20 End: 04-19-20 thiamine (B-1) injection 100 mg vitamin b6 100 mg oral tablet (20 sources) Start: 05-19-19 take 1 tablet by mouth once daily [...] oral tablet (20 sources) Opioid Agonist Start: 09-22-2024 End: 09-25-2024 Hydrocodone-Acetami nophen 10-325 mg tablet Discontinued {tbl} PO THREE TIMES A DAY September 22, 2024 12:00am September 25, 2024 10:27am Start: 10-06-2021 take 1 tablet by aileen th every four hours as needed HYDROcodone-Acetaminophen (NORCO) 10-325 mg per tablet Take 1 [...] as needed for Pain Or Fever 12 February 13, 2019 February 15, 2019 12:00am [...] HOURS NEEDED as needed for Pain 15 May 29, 2018 1:00am May 31, 2018 1:00am June 01, 2018 1:09am Start: 05-29-2018 End: 06-01-2018 take 1 tablet by mouth every six hours as needed Oxycodone-Acetaminophen Discontinued 1 - 2 TABLET PO EVERY 6 HOURS NEEDED 15 May 29, 2018 1:00am June 01, 2018 [...] Comment on above: Take 1 capsule by [facility] three times daily as needed for cough. [...] mg-12.5 mcg (500 unit) tablet extended release (4 sources) Start: 08-07-2021 End: 11-22-2022 Calcium Carb, [...] Comment on above: Take 2 tablets by [facility] once daily. calcium gluconate 1 g in dextrose 5 % 100 mL IVPB (1 source) Start: 04-17-20 End: 04-17-20 calcium gluconate 1 g in dextrose 5 % 100 mL IVPB calcium polycarbophil 625 mg oral tablet (20 sources) Start: 05-01-19 End: 05-20-20 20 Calcium Polycarbophil (Fiber (Calcium Polycarbophil)) 625 mg tablet Discontinued 0 PO .COMPLEX May 01, 2017 1:00am September 09, 2019 8:43pm 4-5 tabs PO 2-3 x qd ciprofloxacin 500 mg oral tablet (20 sources) Quinolone Antimicrobial Start: 10-21-19 End: 05-01-19 18 take 1 tablet by mouth twice daily Ciprofloxacin Hcl 500 MG tablet Discontinued 500 mg PO TWICE A DAY 14 October 21, 2015 12:00am May 01, 2017 [...] 01, 2020 12:00am November 22, 2022 4:00pm levoFLOXacin 750 mg oral tablet (6 sources) Quinolone Antimicrobial Start: End: take 1 tablet by mouth once daily Levofloxacin 750 mg Tablet Discontinued 750 mg PO DAILY@0600 6 May 21, 2023 1:00am September 25, 2024 10:27am levothyroxine sodium 0.125 mg oral tablet (20 sources) l-Thyroxine Start: End: Levothyroxine 137 mcg tablet Discontinued NMA PO August 01, 2020 12:00am August 01, 2020 4:20pm Start: 08-01-2020 End: 08-01-2020 Levothyroxine Discontinued E ACH PO August 01, 2020 12:00am August 01, 2020 4:20pm Start: 04-30-2016 End: 09-25-2024 take 1 tablet by mouth once daily Levothyroxine 125 mcg tablet Discontinued 125 ug PO DAILY February 19, 2023 9:25am September 25, 2024 10:27am Comment on above: Take 125 mcg by [...] 500 mg oral tablet (20 sources) Start: 018 End: take 1 tablet by mouth once [...] NEEDED as needed for Pain Score 6-10/10 16 11September 09, 2019 September 15, 2019 12:00am September 16, 2019 12:02am Start: 09-09-2019 End: 09-16-2019 take 10 mg by mouth every six hours as needed Oxycodone Discontinued 10 MG PO EVERY 6 HOURS NEEDED 16 11September 09, 2019 September 16, 2019 12:02am take [...] aileen th three times daily as needed. potassium chloride 20 meq extended release oral tablet (20 sources) Start: 07-04-2024 End: 09-25-2024 take 1 tablet by mouth twice daily Potassium Chloride 20 mEq tablet extended release Discontinued 20 meq PO TWICE A DAY July 04, 2024 12:00am September 25, 2024 10:28am Start: 08-01-2020 End: 07-04-2024 take 2 tablets [...] mEq by mouth once daily. With food valACYclovir 1000 mg oral tablet (20 sources) Herpesvirus Nucleoside Analog DNA Polymerase Inhibitor, Herpes Simplex Virus Nucleoside Analog DNA Polymerase Inhibitor, Herpes Zoster Virus Nucleoside Analog DNA Polymerase Inhibitor Start: 08-01-2020 End: 09-25-2024 Valacyclovir 1 gram tablet Discontinued 1000 mg PO DAILY August 01, 2020 12:00am September 25, 2024 10:29am Start: 08-01-2020 take 1000 mg by mout h once daily Valacyclovir Active 1000 MG PO DAILY August 01, 2020 12:00am Comment on above: Take 1,000 mg by aileen th once daily. vit C/E/zinc ox/thuan/lut/zeax (ICAPS AREDS2 ORAL) (10 [...] tablet by aileen th once daily. Vitamins A,C,S-Evmp-Ysgojc (Preservision Areds) 14,320-226-200 ljgm-ai-phbr capsule (20 sources) Start: 05-01-2017 End: 09-09-2019 take 1 capsule by mouth once daily Vitamins A,C,H-Uegr-Upjmoo (Preservision Areds) 14,320-226-200 fqak-eb-wfqf capsule Discontinued 1 CAP PO DAILY May 01, 2017 10:26am September 09, 2019 8:44pm Start: 05-01-2017 End: 09-09-2019 Vitamins A,C,R-Cfof-Bdtdjh (Preservision Areds) 14,320-226-200 dgem-os-ykvc capsule Discontinued 1 NMA PO DAILY May 01, 2017 1:00am September 09, 2019 8:44pm Start: 05-01-2017 End: 09-09-2019 take 1 capsule by mouth once daily Vitamins A,C,N-Ajsu-Zalvbn (Preservision Areds) 14,320-226-200 nfgl-yx-dlje capsule Discontinued 1 CAP PO DAILY May 01, 2017 12:00am September 09, 2019 7:44pm Start: 05-01-2017 End: 09-09-2019 take 1 capsule by mouth once daily Vitamins A,C,F-Amqg-Lkmbmj (Preservision Areds) 14,320-226-200 dpnm-ej-nmsr capsule Discontinued 1 CAP PO DAILY May [...] 3 Resolved: 3 01-20-2015 Chronic Cardiac dysrhythmias (4 sources) Juliana rhythm disorder; Translations: [Other specified [...] Onset: 5 05-28-2016 Chronic Other circulatory disease (7 sources) Low blood pressure; Translations: [Hypotension, unspecified] 05-19-2023 Episodic Other circulatory disease (3 sources) Hypotension, unspecified; Translations: [Hypotension, unspecified] 05-19-2023 Episodic Other connective tissue disease (16 sources) Neuropathic pain; Translations: [Neuralgia and neuritis, [...] fracture with routine healing] Episodic Other fractures (5 sources) Fracture of left rib; Translations: [Fracture [...] injuries and conditions due to external causes (11 sources) Wound finding; Translations: [Other injury of unspecified body region, initial encounter] 07-02-2022 Episodic Other injuries and conditions due to external causes (7 sources) Systemic inflammatory response syndrome; Translations: [Systemic [...] upper arm, subsequent encounter] 03-17-2021 Episodic Other liver diseases (2 sources) Abnormal levels of other serum enzymes; Translations: [Abnormal levels of other serum enzymes] Onset: Episodic Other liver diseases (2 sources) Increased creatine kinase level; Translations: [Abnormal levels of other serum enzymes] 09-22-2024 Episodic Other lower respiratory disease (13 sources) Cough; Translations: [Cough] 11-22-2022 Episodic Other lower respiratory disease (9 sources) Hypoxia; Translations: [Hypoxemia] 11-22-2022 Episodic Other lower respiratory disease (2 sources) Hypoxemia; Translations: [Hypoxemia] 11-22-2022 Episodic Other lower respiratory disease (1 source) Dyspnea; Translations: [Shortness of breath] 11-22-2022 Episodic Other lower respiratory disease (8 sources) Dyspnea on exertion; Translations: [Other forms of dyspnea] 11-22-2022 Episodic Other lower respiratory disease (1 source) Other forms of dyspnea; Translations: [Other respiratory abnormalities] 11-23-2022 Episodic Other nervous system disorders (20 sources) Neuropathy; 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 Other nervous system disorders (7 sources) Disorder of brain; 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] 05-19-2023 Chronic Other nervous system disorders (3 sources) Other encephalopathy; 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] 05-19-2023 Chronic Other nervous system disorders (2 sources) Unable to walk; Translations: [Difficulty in walking, not elsewhere classified] 09-22-2024 Chronic Other nutritional; endocrine; and metabolic disorders (20 sources) Hypocalcemia; Translations: [Hypocalcemia] Onset: 0 04-17-2021 Chronic Other nutritional; endocrine; and metabolic disorders (7 sources) Ketosis; 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] 05-19-2023 Chronic Other nutritional; endocrine; and metabolic disorders (3 sources) Other specified metabolic disorders; 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] 05-19-2023 Chronic Other screening for suspected conditions (not mental disorders or infectious disease) (8 sources) Creatinine level - finding; Translations: [Other [...] 3 07-03-2012 Chronic Skull and face fractures (11 sources) Fracture of orbital floor; Translations: [Fracture [...] [Urinary tract infection, site not specified] Onset: 05-20-2019 Episodic Past or Other Problems Problem [...] 10-03-2012 Chronic Genitourinary symptoms and ill-defined conditions (11 sources) Pyuria; Translations: [Pyuria] Onset: 05-20-2024 05-19-2023 [...] vertebra, unspecified cervical vertebral level, initial encounter ([facility])] Onset: 10-07-2021 Episodic Other injuries and conditions [...] Value Interpretation Reference Range Facility Urine Cultureon 09-26-2024 [facility] Urine Culture Citrobacter species [place] Count >100,000 Citrobacter species: REACTION Cefepime Islt BENJAMIN 16 cefTRIAXone Islt BENJAMIN >=64 R Ciprofloxacin Islt BENJAMIN 0.5 I Gentamicin Islt BENJAMIN <=1 S levoFLOXacin Islt BENJAMIN 1 I Meropenem Islt BENJAMIN <=0.25 S Nitrofurantoin Islt BENJAMIN <=16 S Pip+Tazo Islt BENJAMIN >=128 R TMP SMX Islt BENJAMIN >=320 R Citrobacter species: REACTION Amikacin Islt BENJAMIN <=1 Eravacycline Islt BENJAMIN 0.5 S Imipenem Islt BENJAMIN 1 S Tobramycin Islt BENJAMIN <=1 S Normal [facility] Comment on above: Performed By: #### L [id number] #### [facility] [address] [place], [address] Absolute lymphocyte countOrd ered By: Aggie Bolton on 09-23-2024 Lymphocytes Auto (Unsp spec) [#/Vol] 1.66 10*3/uL 0.83-4.51 [facility] Absolute neutrophil countOrd ered By: Aggie Bolton on 09-23-2024 Neutrophils (Bld) [#/Vol] 7.2 10*3/uL 2.0-7.7 [facility] Anion gap in Serum or Plasma Ordered By: Aggie Bolton on 09-23-2024 Anion gap [Moles/Vol] 10 mmol/L - [facility] Automated lymphocyte count a s percentage of total leukocytesOrdered By: Aggie Bolton on 09-23-2024 Lymphocytes/100 WBC Auto (Unsp spec) 16.2 % Low [facility] BUN/creatinine ratioOrdered By: Aggie Bolton on 09-23-2024 Urea nitrogen/Creatinine [Mass ratio] 18.3 mg/mg - [facility] CBC W/Diff, Automatedon Absolute Lymph 1.66 X10 3/uL Normal 0.83-4.51 [facility] Comment on above: Performed By: #### L [id number], L100.0100, [id number] #### [facility] [address] [place], [address] Absolute Neut 7.2 X10 3/uL Normal 2.0-7.7 [facility] Comment on above: Performed By: #### L [id number], L100.0100, [id number] #### [facility] [address] [place], [address] IG% 0.400 Normal 0.0-0.9 [facility] Comment on above: Result Comment: IG% - Immature Granulocytes (promyelocytes, myelocytes and metamyelocytes) > 1% indicates that a LEFT SHIFT is Present. Performed By: #### L [id number], L100.0100, [id number] #### [facility] [address] [place], [address] Lymphocytes/100 WBC (Bld) 16.2 % Low [facility] Comment on above: Performed By: #### L [id number], L100.0100, [id number] #### [facility] [address] [place], [address] Nucleated RBC (Bld) [#/Vol] 0 10*3/uL Normal 0-5 [facility] Comment on above: Performed By: #### L [id number], L100.0100, [id number] #### [facility] [address] [place], [address] RDW SD 47.4 fl High 35.1-43.9 [facility] Comment on above: Performed By: #### L [id number], L100.0100, [id number] #### [facility] [address] [place], [address] CBC W/Diff, AutomatedOrdered By: Aggie Bolton on 09-23-2024 Basophils/100 WBC (Bld) 0.8 % Normal 0-1 [facility] Comment on above: Performed By: #### L [id number], L100.0100, [id number] #### [facility] [address] [place], [address] Eosinophils/100 WBC (Bld) 2.4 % Normal 0-5 [facility] Comment on above: Performed By: #### L [id number], L100.0100, [id number] #### [facility] [address] [place], [address] Erythrocyte distribution width (RBC) [Ratio] 13.2 % Normal 11.6-14.6 [facility] Comment on above: Performed By: #### L [id number], L100.0100, [id number] #### [facility] [address] [place], [address] Hematocrit (Bld) [Volume fraction] 35.9 % Low 37-47 [facility] Comment on above: Performed By: #### L [id number], L100.0100, [id number] #### [facility] [address] [place], [address] Hemoglobin (Bld) [Mass/Vol] 12.0 g/dL Normal 12.0-15.0 [facility] Comment on above: Performed By: #### L [id number], L100.0100, [id number] #### [facility] [address] [place], [address] MCH (RBC) [Entitic mass] 32.6 pg High 27.0-32.0 [facility] Comment on above: Performed By: #### L [id number], L100.0100, [id number] #### [facility] [address] [place], [address] MCHC (RBC) [Mass/Vol] 33.4 g/dL Normal 32-36 [facility] Comment on above: Performed By: #### L [id number], L100.0100, [id number] #### [facility] [address] [place], [address] MCV (RBC) [Entitic vol] 97.6 fL Normal 81-99 [facility] Comment on above: Performed By: #### L 500.4050, L100.0100, L501.3620 #### [facility] [address] [place], [address] Monocytes/100 WBC (Bld) 9.6 % Normal 0-10 [facility] Comment on above: Performed By: #### L 500.4050, L100.0100, L501.3620 #### [facility] [address] [place], [address] Neutrophils/100 WBC (Bld) 70.6 % High 47-70 [facility] Comment on above: Performed By: #### L 500.4050, L100.0100, L501.3620 #### [facility] [address] [place], [address] Platelet mean volume (Bld) [Entitic vol] 11.7 fL Normal 6.2-12.0 [facility] Comment on above: Performed By: #### L 500.4050, L100.0100, L501.3620 #### [facility] [address] [place], [address] Platelets (Bld) [#/Vol] 241 10*3/uL Normal 150-450 [facility] Comment on above: Performed By: #### L 500.4050, L100.0100, L501.3620 #### [facility] [address] [place], [address] RBC (Bld) [#/Vol] 3.68 10*6/uL Low 4.2-5.4 [facility] Comment on above: Performed By: #### L 500.4050, L100.0100, L501.3620 #### [facility] [address] [place], [address] WBC (Bld) [#/Vol] 10.3 10*3/uL Normal 4.4-11.0 [facility] Comment on above: Performed By: #### L 500.4050, L100.0100, L501.3620 #### [facility] [address] [place], [address] CPK Total, Creatine Kinaseon 09-23-2024 CPK TOTAL 271 U/L High 24-195 [facility] Comment on above: Performed By: #### L 500.4050, L100.0100, L501.3620 #### [facility] [address] [place], [address] Comprehensive Metabolic Prof ilOrdered By: Aggie Bolton on 09-23-2024 Albumin [Mass/Vol] 3.4 g/dL Normal 3.4-4.8 [facility] Comment on above: Performed By: #### L 500.4050, L100.0100, L501.3620 #### [facility] [address] [place], [address] Albumin/Globulin [Mass ratio] 1.2 {ratio} Normal 0.9-2.4 [facility] Comment on above: Performed By: #### L 500.4050, L100.0100, L501.3620 #### [facility] [address] [place], [address] ALT [Catalytic activity/Vol] 13 U/L Normal <=34 [facility] Comment on above: Performed By: #### L 500.4050, L100.0100, L501.3620 #### [facility] [address] [place], [address] AST [Catalytic activity/Vol] 24 U/L Normal <=31 [facility] Comment on above: Performed By: #### L 500.4050, L100.0100, L501.3620 #### [facility] [address] [place], [address] Bilirubin [Mass/Vol] 0.17 mg/dL Normal 0.00-1.30 [facility] Comment on above: Performed By: #### L 500.4050, L100.0100, L501.3620 #### [facility] [address] [place], [address] Calcium [Mass/Vol] 8.0 mg/dL Normal 7.6-11.0 [facility] Comment on above: Performed By: #### L 500.4050, L100.0100, L501.3620 #### [facility] [address] [place], [address] Chloride [Moles/Vol] 105 mmol/L Normal 98-108 [facility] Comment on above: Performed By: #### L 500.4050, L100.0100, L501.3620 #### [facility] [address] [place], [address] CO2 [Moles/Vol] 24.4 mmol/L Normal 21.0-32.0 [facility] Comment on above: Performed By: #### L 500.4050, L100.0100, L501.3620 #### [facility] [address] [place], [address] Creatinine [Mass/Vol] 0.71 mg/dL Normal 0.70-1.20 [facility] Comment on above: Performed By: #### L 500.4050, L100.0100, L501.3620 #### [facility] [address] [place], [address] GFR/1.73 sq M.predicted among non-blacks MDRD (S/P/Bld) [Vol rate/Area] 87 mL/min/{1.73_m2} Normal >60 [facility] Comment on above: Result Comment: mL/m in/1.73m2 CKD-EPI Creatinine Equation (2020) Performed By: #### L 500.4050, L100.0100, L501.3620 #### [facility] [address] [place], [address] mL/min/1.73m2 CKD-EP I Creatinine Equation (2020) Globulin (S) [Mass/Vol] 2.8 g/dL Normal 2.2-4.2 [facility] Comment on above: Performed By: #### L 500.4050, L100.0100, L501.3620 #### [facility] [address] [place], [address] Glucose [Mass/Vol] 162 mg/dL High 70-99 [facility] Comment on above: Performed By: #### L 500.4050, L100.0100, L501.3620 #### [facility] [address] [place], [address] Sodium [Moles/Vol] 140 mmol/L Normal 133-145 [facility] Comment on above: Performed By: #### L 500.4050, L100.0100, L501.3620 #### [facility] [address] [place], [address] Urea nitrogen [Mass/Vol] 13 mg/dL Normal 4-19 [facility] Comment on above: Performed By: #### L 500.4050, L100.0100, L501.3620 #### [facility] [address] [place], [address] Comprehensive Metabolic Prof ilon 09-23-2024 ALK PHOS 80 U/L Normal 35-104 [facility] Comment on above: Performed By: #### L 500.4050, L100.0100, L501.3620 #### [facility] [address] [place], [address] BUN/CRE 18.3 RATIO Normal 10-20 [facility] Comment on above: Performed By: #### L 500.4050, L100.0100, L501.3620 #### [facility] [address] [place], [address] ECRCL 59.41 ml/min Normal 50-250 [facility] Comment on above: Performed By: #### L 500.4050, L100.0100, L501.3620 #### [facility] [address] [place], [address] GAP 10 Normal 5-15 [facility] Comment on above: Performed By: #### L 500.4050, L100.0100, L501.3620 #### [facility] [address] [place], [address] Potassium [Moles/Vol] 4.1 mmol/L Normal 3.3-5.1 [facility] Comment on above: Performed By: #### L 500.4050, L100.0100, L501.3620 #### [facility] [address] [place], [address] T PROT 6.2 g/dL Normal 5.9-8.4 [facility] Comment on above: Performed By: #### L 500.4050, L100.0100, L501.3620 #### [facility] [address] [place], [address] Erythrocyte distribution wid th standard deviationOrdered By: Aggie Bolton on 09-23-2024 Erythrocyte distribution width (RBC) [Ratio] 47.4 fl High 35.1-43.9 [facility] Immature granulocytes/100 WB C Auto (Bld)Ordered By: Aggie Che on 09-23-2024 Immature granulocytes/100 WBC (Bld) 0.400 % 0.0-0.9 [facility] Comment on above: IG% - Immature Granu locytes (promyelocytes, myelocytes and metamyelocytes) > 1% indicates that a LEFT SHIFT is Present. Nucleated red blood cell per centageOrdered By: Aggie Bolton on 09-23-2024 Nucleated RBC/100 WBC (Bld) [Ratio] 0 % 0-5 [facility] Potassium measurement (mass/ volume)Ordered By: Aggie Bolton on 09-23-2024 Potassium (Unsp spec) [Mass/Vol] 4.1 mmol/L 3.3-5.1 [facility] Serum or plasma alkaline dedra sphatase measurementOrdered By: Aggie Bolton on 09-23-2024 ALP [Catalytic activity/Vol] 80 U/L 35-104 [facility] Serum or plasma creatine kin ase activityOrdered By: Aggie Che on 09-23-2024 CK [Catalytic activity/Vol] 271 U/L High 24-195 [facility] Total proteinOrdered By: Martita Bolton on 09-23-2024 Protein [Mass/Vol] 6.2 g/dL 5.9-8.4 [facility] Bilirubin Test strip Ql (U)O rdered By: Alexis Quijano on 09-22-2024 Bilirubin Ql (U) Negative Negative [facility] Brain/Head without Contrasto n 09-22-2024 Brain/Head without Contrast [facility] [address] [place], [place] [address] Brain/Head without Contrast MR#: [id number] Acct: [id number] Name: AIDEN FIELDS Rep #: [id number] : 1945 F 78 From: Warren Mullen MD PCP: Dr. Erica Richardson DO Status: REG ER Study: Brain/Head without Contrast Date of Exam: 07/14 Exam# [id number] Ordering Dr: Alexis Quijano MD PROCEDURE: BRAIN/HEAD WITHOUT CONTRAST 09/22/2024 REASON FOR EXAM: WEAKNESS TECHNIQUE: Head CT without intravenous contrast. Coronal and Sagittal reconstruction series were provided. One or more dose reduction techniques were used (e.g., Automated exposure control, adjustment of the mA and/or kV according to patient size, use of iterative reconstruction technique. RADIATION DOSE SUMMARY: CTDlvol: 44.99 mGy DLP: 897.35 mGycm COMPARISON: 08/20/2023. FINDINGS: [id number] global parenchymal atrophy. Periventricular white matter hypodensity likely representing chronic microvascular ischemia. No evidence of acute hemorrhage or infarction. No extra-axial blood or fluid collections. The paranasal sinuses are clear. The mastoid air cells are well aerated. The calvarial vault and skull base are intact. CT/Brain/Head without Contrast IMPRESSION: No acute intracranial abnormality. Reading Location: [id number] CC: Dr. Alexis Quijano MD; Dr. Erica Richardson DO Bulk Fluids Handler: Signed Normal [facility] CBC W/Diff, Automatedon Absolute Lymph 2.17 X10 3/uL Normal 0.83-4.51 [facility] Comment on above: Performed By: #### L 100.0100, L500.4050 #### [facility] [address] [place], [place], [address] Absolute Neut 8.0 X10 3/uL High 2.0-7.7 [facility] Comment on above: Performed By: #### L 100.0100, L500.4050 #### [facility] [address] [place], [address] Basophils/100 WBC (Bld) 0.9 % Normal 0-1 [facility] Comment on above: Performed By: #### L 100.0100, L500.4050 #### [facility] [address] [place], [address] Eosinophils/100 WBC (Bld) 2.9 % Normal 0-5 [facility] Comment on above: Performed By: #### L 100.0100, L500.4050 #### [facility] [address] [place], [address] Erythrocyte distribution width (RBC) [Ratio] 13.1 % Normal 11.6-14.6 [facility] Comment on above: Performed By: #### L 100.0100, L500.4050 #### [facility] [address] [place], [address] Hematocrit (Bld) [Volume fraction] 39.5 % Normal 37-47 [facility] Comment on above: Performed By: #### L 100.0100, L500.4050 #### [facility] [address] [place], [address] Hemoglobin (Bld) [Mass/Vol] 13.2 g/dL Normal 12.0-15.0 [facility] Comment on above: Performed By: #### L 100.0100, L500.4050 #### [facility] [address] [place], [address] IG% 0.400 Normal 0.0-0.9 [facility] Comment on above: Result Comment: IG% - Immature Granulocytes (promyelocytes, myelocytes and metamyelocytes) > 1% indicates that a LEFT SHIFT is Present. Performed By: #### L 100.0100, L500.4050 #### [facility] [address] [place], [address] Lymphocytes/100 WBC (Bld) 18.8 % Low 19-41 [facility] Comment on above: Performed By: #### L 100.0100, L500.4050 #### [facility] [address] [place], [address] MCH (RBC) [Entitic mass] 32.7 pg High 27.0-32.0 [facility] Comment on above: Performed By: #### L 100.0100, L500.4050 #### [facility] [address] [place], [address] MCHC (RBC) [Mass/Vol] 33.4 g/dL Normal 32-36 [facility] Comment on above: Performed By: #### L 100.0100, L500.4050 #### [facility] [address] [place], [address] MCV (RBC) [Entitic vol] 97.8 fL Normal 81-99 [facility] Comment on above: Performed By: #### L 100.0100, L500.4050 #### [facility] [address] [place], [address] Monocytes/100 WBC (Bld) 7.5 % Normal 0-10 [facility] Comment on above: Performed By: #### L 100.0100, L500.4050 #### [facility] [address] [place], [address] Neutrophils/100 WBC (Bld) 69.5 % Normal 47-70 [facility] Comment on above: Performed By: #### L 100.0100, L500.4050 #### [facility] [address] [place], [address] Nucleated RBC (Bld) [#/Vol] 0 10*3/uL Normal 0-5 [facility] Comment on above: Performed By: #### L 100.0100, L500.4050 #### [facility] [address] [place], [address] Platelet mean volume (Bld) [Entitic vol] 12.0 fL Normal 6.2-12.0 [facility] Comment on above: Performed By: #### L 100.0100, L500.4050 #### [facility] [address] [place], [address] Platelets (Bld) [#/Vol] 259 10*3/uL Normal 150-450 [facility] Comment on above: Performed By: #### L 100.0100, L500.4050 #### [facility] [address] [place], [address] RBC (Bld) [#/Vol] 4.04 10*6/uL Low 4.2-5.4 [facility] Comment on above: Performed By: #### L 100.0100, L500.4050 #### [facility] [address] [place], [address] RDW SD 47.2 fl High 35.1-43.9 [facility] Comment on above: Performed By: #### L 100.0100, L500.4050 #### [facility] [address] [place], [address] WBC (Bld) [#/Vol] 11.6 10*3/uL High 4.4-11.0 [facility] Comment on above: Performed By: #### L 100.0100, L500.4050 #### [facility] [address] [place], [address] CPK Total, Creatine Kinaseon 09-22-2024 CPK TOTAL 316 U/L High 24-195 [facility] Comment on above: Performed By: #### L 501.3620 #### [facility] [address] [place], [address] Chest 1 View (Portable)on Chest 1 View (Portable) [facility] Services [address] [place] [address] Chest 1 View (Portable) MR#: [id number] Acct: [id number] Name: AIDEN FIELDS Rep #: [id number] : 1945 F 78 From: Warren Mullen MD PCP: Dr. Erica Richardson DO Status: REG ER Study: Chest 1 View (Portable) Date of Exam: 09/22/24 Exam# [id number] Ordering Dr: Alexis Quijano MD PROCEDURE: CHEST 1 VIEW (PORTABLE) 09/22/2024 REASON FOR EXAM: SHORTNESS OF BREATH TECHNIQUE: Frontal view of the chest. COMPARISON: 07/04/2024. FINDINGS: The heart is normal in size. Right chest Port-A-Cath. The lungs are clear. Right humeral plate and screw fixation. Left rib plate and screw fixation. RAD/Chest 1 View (Portable) IMPRESSION: No acute cardiopulmonary abnormalities. Reading Location: [place] [address] CC: Dr. Alexis Quijano MD; Dr. Erica Richardson DO Bulk Fluids Handler: Signed Normal [facility] Comprehensive Metabolic Prof ilon 09-22-2024 Albumin [Mass/Vol] 3.6 g/dL Normal 3.4-4.8 [facility] Comment on above: Performed By: #### L 100.0100, L500.4050 #### [facility] [address] [place], [address] Albumin/Globulin [Mass ratio] 1.2 {ratio} Normal 0.9-2.4 [facility] Comment on above: Performed By: #### L 100.0100, L500.4050 #### [facility] [address] [place], [address] ALK PHOS 87 U/L Normal 35-104 [facility] Comment on above: Performed By: #### L 100.0100, L500.4050 #### [facility] [address] [place], [address] ALT [Catalytic activity/Vol] 16 U/L Normal <=34 [facility] Comment on above: Result Comment: Hemo lysis present, Results??could be affected. ?? Performed By: #### L 100.0100, L500.4050 #### [facility] [address] [place], [address] AST [Catalytic activity/Vol] 40 U/L High <=31 [facility] Comment on above: Result Comment: Hemo lysis present, Results??could be affected. ?? Performed By: #### L 100.0100, L500.4050 #### [facility] [address] [place], [address] Bilirubin [Mass/Vol] 0.31 mg/dL Normal 0.00-1.30 [facility] Comment on above: Performed By: #### L 100.0100, L500.4050 #### [facility] [address] [place], [address] BUN/CRE 15.0 RATIO Normal 10-20 [facility] Comment on above: Performed By: #### L 100.0100, L500.4050 #### [facility] [address] [place], [address] Calcium [Mass/Vol] 8.6 mg/dL Normal 7.6-11.0 [facility] Comment on above: Performed By: #### L 100.0100, L500.4050 #### [facility] [address] [place], [address] Chloride [Moles/Vol] 100 mmol/L Normal 98-108 [facility] Comment on above: Performed By: #### L 100.0100, L500.4050 #### [facility] [address] [place], [address] CO2 [Moles/Vol] 25.5 mmol/L Normal 21.0-32.0 [facility] Comment on above: Performed By: #### L 100.0100, L500.4050 #### [facility] [address] [place], [address] Creatinine [Mass/Vol] 0.86 mg/dL Normal 0.70-1.20 [facility] Comment on above: Performed By: #### L 100.0100, L500.4050 #### [facility] [address] [place], [address] ECRCL 58.83 ml/min Normal 50-250 [facility] Comment on above: Performed By: #### L 100.0100, L500.4050 #### [facility] [address] [place], [address] GAP 11 Normal 5-15 [facility] Comment on above: Performed By: #### L 100.0100, L500.4050 #### [facility] [address] [place], [address] GFR/1.73 sq M.predicted among non-blacks MDRD (S/P/Bld) [Vol rate/Area] 70 mL/min/{1.73_m2} Normal >60 [facility] Comment on above: Result Comment: mL/m in/1.73m2 CKD-EPI Creatinine Equation (2020) Performed By: #### L 100.0100, L500.4050 #### [facility] [address] [place], [address] Globulin (S) [Mass/Vol] 3.0 g/dL Normal 2.2-4.2 [facility] Comment on above: Performed By: #### L 100.0100, L500.4050 #### [facility] [address] [place], [address] Glucose [Mass/Vol] 97 mg/dL Normal 70-99 [facility] Comment on above: Performed By: #### L 100.0100, L500.4050 #### [facility] [address] [place], [address] Potassium [Moles/Vol] 5.2 mmol/L High 3.3-5.1 [facility] Comment on above: Result Comment: Hemo lysis present, Results??could be affected. ?? Performed By: #### L 100.0100, L500.4050 #### [facility] [address] [place], [address] Sodium [Moles/Vol] 136 mmol/L Normal 133-145 [facility] Comment on above: Performed By: #### L 100.0100, L500.4050 #### [facility] [address] [place], [address] T PROT 6.6 g/dL Normal 5.9-8.4 [facility] Comment on above: Performed By: #### L 100.0100, L500.4050 #### [facility] [address] [place], [address] Urea nitrogen [Mass/Vol] 13 mg/dL Normal 4-19 [facility] Comment on above: Performed By: #### L 100.0100, L500.4050 #### [facility] [address] [place], [address] Emergency Department Summary on 09-22-2024 Emergency Department Summary [facility] Medical Records Department [address] [place] [address] Emergency Department Summary 09/22/24 MR#: [id number] Acct: [id number] Name: AIDEN FIELDS Rep #: [id number] : 1945 78 From: Alexis Quijano MD PCP: Dr. Erica Richardson, DO Status:REG ER Location: ED HPI History of Present Illness Chief Complaint: General Illness Narrative Narrative: 78-year-old female who denies significant past medical history presents via EMS from home. Apparently she had a home health aide come to visit her and reportedly patient has not gotten out of bed since 8 AM. She states that she was up late watching TV and has been tired all day so she was sleeping. She denies any pain, no cough or shortness of breath, states she usually ambulates with a walker. It was reported that the home health aide stated that she has not eaten or drank anything today. Patient has not gotten out of bed for 12 hours which is unusual for her. [facility] Medical History Anxiety and depression Hypoparathyroidism after [...] mg PO QHS 07/04/24 Unknown Hist ory hydrocodone 10 mg-acetaminophen tab PO TID 09/22/24 Unknown Histor y 325 mg tablet Allergy/AdvReac Type Severity Reaction Status Date / Time bacitracin (From Neosporin Allergy Unknown Unknown Verified 09/22/24 20:06 ([id number])) neomycin (From Neosporin Allergy Unknown Unknown Verified 09/22/24 20:06 ([id number])) polymyxin B (From Neosporin Allergy Unknown Unknown Verified 09/22/24 20:06 ([id number])) Antihistamines - Alkylamine Allergy PT UNSURE Verified 09/22/24 20:06 OF REACTION diphenhydramine (From Allergy PT UNSURE Verified 09/22/24 20:06 Benadryl) OF REACTION Family History Unknown Thyroid disorder Cancer High cholesterol Arthritis Mother Cancer Diabetes Father , Father at the age of 50 from successful suicide attempt. Suicidal intent Other Alcohol abuse Anxiety Depression Heart disease Hypertension Mental disorder Parkinson disease Psychiatric care Surgical History Status post glaucoma surgery H/O mastectomy H/O thyroidectomy Social History household members: none Smoking Sta (more content not included)... Normal [facility] H AND P Exam - Hospitaliston 09-22-2024 H&P Exam - Hospitalist [facility] Medical Records Department [address] [place] [address] H P Exam - Hospitalist 09/22/24 2054 MR#: [id number] Acct: [id number] Name: AIDEN FIELDS Consuelo Rep #: [id number] : 1945 78 From: Aggie Bolton MD PCP: Dr. Erica Richardson, DO Status:ADM IN Location: [place] [address] HPI - General General Date of Admission: 09/22/24 Date of Service: 09/22/24 Chief Complaint: Weakness. HPI Narrative The patient is a 78 y/o F w/ PMHx: HTN, Anxiety and Depression/Mood disorder, Former tobacco use, Former chart reported history EtOH abuse, Hx Frequent falls, Rheumatoid arthritis, Hypothyroidism s/p prior thyroidectomy, GERD, Hx Breast CA unclear type s/p mastectomy in remission, Chart reported history Chronic anemia who presents to the [facility] ED on 09/22/2024 with history of being at home when she was checked on by health aide who noted that she had not been out of bed since at least 8 AM with patient reporting that she been up very late and was very fatigued sleeping throughout the day with no oral intake prompting eventual transition to the ED given concerns for evaluation. Workup in the ED included T99.5, heart rate 88, BP 121/98, respiratory rate 16, initially noted to be 72% on room air with improvement to 95% on 1 L nasal cannula, most recent repeat vitals T98.1, heart rate 68, BP 129/75, CBC with WBC 11.6, hemoglobin 13.2, platelet 259 with left shift, CMP with potassium 5.2 however noted to be hemolyzed, BUN/creatinine 13/0.86, GFR 7, AST 40, total creatinine kinase 316, urinalysis noted to be cloudy, urine protein 15, occult blood 10, positive nitrite, leukocyte esterase 500 with urine WBCs 50-100 with 4+ urine bacteria, urine culture pending per ED, chest x-ray with no acute cardiopulmonary findings, CT brain with no acute intracranial findings. In the ED patient ministered 1 L normal saline and Rocephin 1 g IV x 1. PFSH Medical History Anxiety and depression Hypoparathyroidism after [...] mg PO QHS 07/04/24 Unknown Hist ory hydrocodone 10 mg-acetaminophen tab PO TID 09/22/24 Unknown Histor y 325 mg tablet Allergy/AdvReac Type Severity Reaction Status Date / Time bacitracin (From Neosporin Allergy Unknown Unknown Verified 09/22/24 20:06 ([id number])) neomycin (From Neosporin Allergy Unknown Unknown Verified 09/22/24 20:06 (n (more content not included)... Normal [facility] Influenza virus A and B and SARS-CoV-2 (COVID-19) and Respiratory syncytial virus RNAOrdered By: Alexis Quijano on 09-22-2024 SARS-CoV-2 (COVID-19) RNA LEONA+probe Ql (Unsp spec) [facility] Ketones Test strip Ql (U)Ord ered By: Alexis Quijano on 09-22-2024 Ketones Ql (U) Negative Negative [facility] M100.678on 09-22-2024 M100.678 Pending SARS-CoV-2 (COVID 19) Negative INFLUENZA A Negative INFLUENZA B Negative RSV PCR Negative Normal [facility] Comment on above: Performed By: #### L 400.0001, M100.678 #### [facility] [address] [place], [address] Microscopic analysis of urin e for red blood cells (RBC)Ordered By: Alexis Quijano on 09-22-2024 Microscopic analysis of urine for red blood cells (RBC) 0-5 SEEN /hpf 0-5 [facility] Mucus LM Ql (Urine sed)Order ed By: Alexis Quijano on 09-22-2024 Mucus Ql (Urine sed) 0 SEEN /hpf [facility] Nitrite Test strip Ql (U)Ord ered By: Alexis Quijano on 09-22-2024 Nitrite Ql (U) Positive High Negative [facility] Protein Test strip Ql (U)Ord ered By: Alexis Quijano on 09-22-2024 Protein Ql (U) 15 mg/dl High Negative [facility] Squamous epithelial cells de tection in urine sediment by light microscopyOrdered By: Alexis Quijano on 09-22-2024 Epithelial cells.squamous LM Ql (Urine sed) 0-5 SEEN /hpf 5-10 [facility] Urinalysis, Completeon 09-22 BACTERIA 4+ /hpf Normal None Seen [facility] Comment on above: Order Comment: FER VEEOR TO SPECIFY Result Comment: NEED TO REORDER Performed By: #### L 400.0001, M1.8 #### [facility] [address] [place], [place], [address] EPI,SQUAMOUS 0-5 SEEN Normal 5-10 [facility] Comment on above: Order Comment: FER CTOR TO SPECIFY Result Comment: NEED TO REORDER Performed By: #### L 400.0001, M100.678 #### [facility] [address] [place], [address] RBC 0-5 SEEN Normal 0-5 [facility] Comment on above: Order Comment: COLLE CTOR TO SPECIFY Result Comment: NEED TO REORDER Performed By: #### L 400.0001, M100.678 #### [facility] [address] [place], [address] WBC 50-100 SEEN Normal 0-5 [facility] Comment on above: Order Comment: COLLE CTOR TO SPECIFY Result Comment: NEED TO REORDER Performed By: #### L 400.0001, M100.678 #### [facility] [address] [place], [address] Mucus Ql (Urine sed) 0 SEEN Normal [facility] Comment on above: Order Comment: FER CTOR TO SPECIFY Result Comment: NEED TO REORDER Performed By: #### L 400.0001, M100.678 #### [facility] [address] [place], [address] Urine clarityOrdered By: Katty Quijano on 09-22-2024 Clarity (U) Cloudy Clear [facility] Urine color determinationOrd ered By: Alexis Quijano on 09-22-2024 Color (U) Straw Yellow [facility] Urine glucose detectionOrder ed By: Alexis Quijano on 09-22-2024 Glucose Ql (U) Normal mg/dl Normal [facility] Urine leukocyte esterase det ection by dipstickOrdered By: Alexis Quijano on 09-22-2024 Leukocyte esterase Test strip Ql (U) 500 /ul High Negative [facility] Urine pHOrdered By: Alexis rajput on 09-22-2024 pH (U) 5.0 [pH] 5.0 - 8.0 [facility] Urine sediment bacteria coun t by microscopy (number/high power field)Ordered By: Alexis Quijano on 09-22-2024 Bacteria LM.HPF (Urine sed) [#/Area] 4 /[HPF] None Seen [facility] Urine specific gravity measu rementOrdered By: Alexis Quijano on 09-22-2024 Specific gravity (U) [Rel density] 1.015 1.002-1.030 [facility] Urine urobilinogen measureme ntOrdered By: Alexis Quijano on 09-22-2024 Urobilinogen Ql (U) Normal mg/dl Normal [facility] White blood cell countOrdere d By: Alexis Quijano on 09-22-2024 White blood cell count 50-100 SEEN /hpf 0-5 [facility] Urine Cultureon 09-13-2024 [facility] Citrobacter freundii [place] Count >100,000 Citrobacter freundii: REACTION Cefepime Islt BENJAMIN <=0.12 cefTRIAXone Islt BENJAMIN 0.5 S Ciprofloxacin Islt BENJAMIN 0.5 I Gentamicin Islt BENJAMIN <=1 S levoFLOXacin Islt BENJAMIN 1 I Meropenem Islt BENJAMIN <=0.25 S Nitrofurantoin Islt BENJAMIN <=16 S Pip+Tazo Islt BENJAMIN <=4 S TMP SMX Islt BENJAMIN >=320 R Normal [facility] Comment on above: Performed By: #### M 100.2200 #### [facility] [address] [place], [address] Urine cultureOrdered By: Elena Richardson on 09-11-2024 Bacteria identified Cx Nom (U) Citrobacter freundii Abnormal [facility] Urine Cultureon 08-23-2024 [facility] Citrobacter youngae [place] Count 80,000-100,000 Citrobacter youngae: REACTION Cefepime Islt BENJAMIN <=0.12 cefTRIAXone Islt BENJAMIN 8 R Ciprofloxacin Islt BENJAMIN <=0.06 S Gentamicin Islt BENJAMIN <=1 S levoFLOXacin Islt BENJAMIN <=0.12 S Meropenem Islt BENJAMIN <=0.25 S Nitrofurantoin Islt BENJAMIN <=16 S Pip+Tazo Islt BENJAMIN <=4 S TMP SMX Islt BENJAMIN <=20 S Normal [facility] Comment on above: Performed By: #### M 100.2200 #### [facility] [address] [place], [address] Urine cultureOrdered By: Elena Richardson on 08-21-2024 Bacteria identified Cx Nom (U) Citrobacter youngae Abnormal [facility] Urine Cultureon 08-07-2024 [facility] Enterococcus faecali s [place] Count 11,000-25,000 Enterococcus faecalis: REACTION Ampicillin Islt BENJAMIN <=2 Ciprofloxacin Islt BENJAMIN >=8 R Gentamicin Synergy Susc Islt SYN-R R levoFLOXacin Islt BENJAMIN >=8 R Linezolid Islt BENJAMIN 2 S Nitrofurantoin Islt BENJAMIN <=16 S Streptomycin High Pot Susc Islt SYN-S S Tetracycline Islt BENJAMIN >=16 R Vancomycin Islt BENJAMIN 1 S Normal [facility] Comment on above: Performed By: #### L 501.3620 #### [facility] [address] [place], [address] Urine cultureOrdered By: Elena Richardson on 08-05-2024 Bacteria identified Cx Nom (U) Enterococcus faecalis Abnormal [facility] 12 Lead EKGon 07-04-2024 12 Lead EKG [facility] [address] [place] [address] 12 Lead EKG 07/04/24 1343 MR#: [id number] Acct: [id number] Name: AIDEN FIELDS Rep #: [id number] : 1945 78 From: Jose Hamilotn MD Attending Dr: Status: DEP ER Ordering [...] normal ECG Confirmed by JOSE HAMILTON MD ([id number]), editor house organ JUVENCIO MARIA ([id number]) on 07/06/2024 8:17:29 AM Referred By: ANUPAMA Confirmed By: JOSE HAMILTON MD 07/06/24 0817 Date Jose Hamilton MD CC: Dr. Froy Cameron DO; Dr. Erica Richardson, DO Signed Normal [facility] Absolute lymphocyte countOrd ered By: Froy Cameron on 07-04-2024 Lymphocytes Auto (Unsp spec) [#/Vol] 1.95 10*3/uL 0.83-4.51 [facility] Absolute neutrophil countOrd ered By: Froy Cameron on 07-04-2024 Neutrophils (Bld) [#/Vol] 6.0 10*3/uL 2.0-7.7 [facility] Amorphous sediment detection in urine sediment by light microscopyOrdered By: Froy Cameron on 07-04-2024 Amorphous sediment LM Ql (Urine sed) 2+ PHOS [facility] Anion gap in Serum or Plasma Ordered By: Froy Cameron on 07-04-2024 Anion gap [Moles/Vol] 12 mmol/L 09-03 [facility] Automated lymphocyte count a s percentage of total leukocytesOrdered By: Froy Cameron on 07-04-2024 Lymphocytes/100 WBC Auto (Unsp spec) 21.2 % 19-41 [facility] BUN/creatinine ratioOrdered By: Froy Cameron on 07-04-2024 Urea nitrogen/Creatinine [Mass ratio] 20.2 mg/mg High 10-20 [facility] Basophil percentageOrdered B y: Froy Cameron on 07-04-2024 Basophils/100 WBC (Bld) 0.9 % 0-1 [facility] Bilirubin Test strip Ql (U)O rdered By: Froy Cameron on 07-04-2024 Bilirubin Ql (U) Negative Negative [facility] Bilirubin, totalOrdered By: Froy Cameron on 07-04-2024 Bilirubin [Mass/Vol] 0.35 mg/dL 0.00-1.30 [facility] CBC W/Diff, Automatedon 06-20 Absolute Lymph 1.95 X10 3/uL Normal 0.83-4.51 [facility] Comment on above: Performed By: #### L 500.4050, L100.0100, L501.3620 #### [facility] [address] [place] [address]. [place], [address] Absolute Neut 6.0 X10 3/uL Normal 2.0-7.7 [facility] Comment on above: Performed By: #### L 500.4050, L100.0100, L501.3620 #### [facility] [address] [place], [address] Basophils/100 WBC (Bld) 0.9 % Normal 0-1 [facility] Comment on above: Performed By: #### L 500.4050, L100.0100, L501.3620 #### [facility] [address] [place], [address] Eosinophils/100 WBC (Bld) 3.6 % Normal 0-5 [facility] Comment on above: Performed By: #### L 500.4050, L100.0100, L501.3620 #### [facility] [address] [place], [address] Erythrocyte distribution width (RBC) [Ratio] 13.4 % Normal 11.6-14.6 [facility] Comment on above: Performed By: #### L 500.4050, L100.0100, L501.3620 #### [facility] [address] [place], [address] Hematocrit (Bld) [Volume fraction] 36.9 % Low 37-47 [facility] Comment on above: Performed By: #### L 500.4050, L100.0100, L501.3620 #### [facility] [address] [place], [address] Hemoglobin (Bld) [Mass/Vol] 12.3 g/dL Normal 12.0-15.0 [facility] Comment on above: Performed By: #### L 500.4050, L100.0100, L501.3620 #### [facility] [address] [place], [address] IG% 0.400 Normal 0.0-0.9 [facility] Comment on above: Result Comment: IG% - Immature Granulocytes (promyelocytes, myelocytes and metamyelocytes) > 1% indicates that a LEFT SHIFT is Present. Performed By: #### L 500.4050, L100.0100, L501.3620 #### [facility] [address] [place], [address] Lymphocytes/100 WBC (Bld) 21.2 % Normal 19-41 [facility] Comment on above: Performed By: #### L 500.4050, L100.0100, L501.3620 #### [facility] [address] [place], [address] MCH (RBC) [Entitic mass] 32.5 pg High 27.0-32.0 [facility] Comment on above: Performed By: #### L 500.4050, L100.0100, L501.3620 #### [facility] [address] [place], [address] MCHC (RBC) [Mass/Vol] 33.3 g/dL Normal 32-36 [facility] Comment on above: Performed By: #### L 500.4050, L100.0100, L501.3620 #### [facility] [address] [place], [address] MCV (RBC) [Entitic vol] 97.6 fL Normal 81-99 [facility] Comment on above: Performed By: #### L 500.4050, L100.0100, L501.3620 #### [facility] [address] [place], [address] Monocytes/100 WBC (Bld) 8.9 % Normal 0-10 [facility] Comment on above: Performed By: #### L 500.4050, L100.0100, L501.3620 #### [facility] [address] [place], [address] Neutrophils/100 WBC (Bld) 65.0 % Normal 47-70 [facility] Comment on above: Performed By: #### L 500.4050, L100.0100, L501.3620 #### [facility] [address] [place], [address] Nucleated RBC (Bld) [#/Vol] 0 10*3/uL Normal 0-5 [facility] Comment on above: Performed By: #### L 500.4050, L100.0100, L501.3620 #### [facility] [address] [place], [address] Platelet mean volume (Bld) [Entitic vol] 11.8 fL Normal 6.2-12.0 [facility] Comment on above: Performed By: #### L 500.4050, L100.0100, L501.3620 #### [facility] [address] [place], [address] Platelets (Bld) [#/Vol] 236 10*3/uL Normal 150-450 [facility] Comment on above: Performed By: #### L 500.4050, L100.0100, L501.3620 #### [facility] [address] [place], [address] RBC (Bld) [#/Vol] 3.78 10*6/uL Low 4.2-5.4 [facility] Comment on above: Performed By: #### L 500.4050, L100.0100, L501.3620 #### [facility] [address] [place], [address] RDW SD 48.0 fl High 35.1-43.9 [facility] Comment on above: Performed By: #### L 500.4050, L100.0100, L501.3620 #### [facility] [address] [place], [address] WBC (Bld) [#/Vol] 9.2 10*3/uL Normal 4.4-11.0 [facility] Comment on above: Performed By: #### L 500.4050, L100.0100, L501.3620 #### [facility] [address] [place], [address] Carbon dioxide, total [Moles /volume] in Central venous bloodOrdered By: Froy Cameron on 07-04-2024 CO2 [Moles/Vol] 26.3 mmol/L 21.0-32.0 [facility] Chest PA and Lateralon 07-04 Chest PA and Lateral [facility] Imaging Services [address] [place], [place] [address] Chest PA and Lateral MR#: [id number] Acct: [id number] Name: AIDEN FIELDS Rep #: [id number] : 1945 F 78 From: Reagan Nguyen PCP: Dr. Erica Richardson DO Status: REG ER Study: Chest PA and Lateral Date of Exam: 07/04/24 Exam# [id number] Ordering Dr: Froy Cameron DO PROCEDURE: CHEST [...] Froy Cameron DO; Dr. Erica Richardson DO Bulk Fluids Handler: Signed Normal [facility] Chloride assayOrdered By: Miracle Cameron on 07-04-2024 Chloride [Moles/Vol] 100 mmol/L 98-108 [facility] Comprehensive Metabolic Prof ilon 07-04-2024 Albumin [Mass/Vol] 4.0 g/dL Normal 3.4-4.8 [facility] Comment on above: Performed By: #### L 500.4050, L100.0100, L501.3620 #### [facility] [address] [place], [address] Albumin/Globulin [Mass ratio] 1.4 {ratio} Normal 0.9-2.4 [facility] Comment on above: Performed By: #### L 500.4050, L100.0100, L501.3620 #### [facility] [address] [place], [address] ALK PHOS 82 U/L Normal 35-104 [facility] Comment on above: Performed By: #### L 500.4050, L100.0100, L501.3620 #### [facility] [address] [place], [address] ALT [Catalytic activity/Vol] 12 U/L Normal <=34 [facility] Comment on above: Performed By: #### L 500.4050, L100.0100, L501.3620 #### [facility] [address] [place], [address] AST [Catalytic activity/Vol] 21 U/L Normal <=31 [facility] Comment on above: Performed By: #### L 500.4050, L100.0100, L501.3620 #### [facility] [address] [place], [address] Bilirubin [Mass/Vol] 0.35 mg/dL Normal 0.00-1.30 [facility] Comment on above: Performed By: #### L 500.4050, L100.0100, L501.3620 #### [facility] [address] [place], [address] BUN/CRE 20.2 RATIO High 10-20 [facility] Comment on above: Performed By: #### L 500.4050, L100.0100, L501.3620 #### [facility] [address] [place], [address] Calcium [Mass/Vol] 8.6 mg/dL Normal 7.6-11.0 [facility] Comment on above: Performed By: #### L 500.4050, L100.0100, L501.3620 #### [facility] [address] [place], [address] Chloride [Moles/Vol] 100 mmol/L Normal 98-108 [facility] Comment on above: Performed By: #### L 500.4050, L100.0100, L501.3620 #### [facility] [address] [place], [address] CO2 [Moles/Vol] 26.3 mmol/L Normal 21.0-32.0 [facility] Comment on above: Performed By: #### L 500.4050, L100.0100, L501.3620 #### [facility] [address] [place], [address] Creatinine [Mass/Vol] 0.79 mg/dL Normal 0.70-1.20 [facility] Comment on above: Performed By: #### L 500.4050, L100.0100, L501.3620 #### [facility] [address] [place], [address] ECRCL 61.64 ml/min Normal 50-250 [facility] Comment on above: Performed By: #### L 500.4050, L100.0100, L501.3620 #### [facility] [address] [place], [address] GAP 12 Normal 5-15 [facility] Comment on above: Performed By: #### L 500.4050, L100.0100, L501.3620 #### [facility] [address] [place], [address] GFR/1.73 sq M.predicted among non-blacks MDRD (S/P/Bld) [Vol rate/Area] 77 mL/min/{1.73_m2} Normal >60 [facility] Comment on above: Result Comment: mL/m in/1.73m2 CKD-EPI Creatinine Equation (2020) Performed By: #### L 500.4050, L100.0100, L501.3620 #### [facility] [address] [place], [address] Globulin (S) [Mass/Vol] 2.9 g/dL Normal 2.2-4.2 [facility] Comment on above: Performed By: #### L 500.4050, L100.0100, L501.3620 #### [facility] [address] [place], [address] Glucose [Mass/Vol] 98 mg/dL Normal 70-99 [facility] Comment on above: Performed By: #### L 500.4050, L100.0100, L501.3620 #### [facility] [address] [place], [address] Potassium [Moles/Vol] 4.0 mmol/L Normal 3.3-5.1 [facility] Comment on above: Performed By: #### L 500.4050, L100.0100, L501.3620 #### [facility] [address] [place], [address] Sodium [Moles/Vol] 139 mmol/L Normal 133-145 [facility] Comment on above: Performed By: #### L 500.4050, L100.0100, L501.3620 #### [facility] [address] [place], [address] T PROT 6.9 g/dL Normal 5.9-8.4 [facility] Comment on above: Performed By: #### L 500.4050, L100.0100, L501.3620 #### [facility] [address] [place], [address] Urea nitrogen [Mass/Vol] 16 mg/dL Normal 4-19 [facility] Comment on above: Performed By: #### L 500.4050, L100.0100, L501.3620 #### [facility] [address] [place], [address] Emergency Department Summary on 07-04-2024 Emergency Department Summary [facility] Medical Records Department [address] [place] [address] Emergency Department Summary 07/04/24 MR#: [id number] Acct: [id number] Name: AIDEN FIELDS Rep #: [id number] : 1945 78 From: Froy Cameron DO PCP: Dr. Erica Richardson DO Status:DEP [...] this could be due to her medications. [facility] Medical History Anxiety and depression Hypoparathyroidism after [...] Neosporin Allergy Unknown Unknown Verified 07/04/24 13:01 ([id number])) neomycin (From Neosporin Allergy Unknown Unknown Verified 03/02/24 21:55 ([id number]-[id number])) polymyxin B (From Neosporin Allergy Unknown Unknown Verified 03/02/24 21:55 (ldi-cxr-[id number])) Antihistamines - Alkylamine Allergy PT UNSURE Verified [...] thyroidectomy S (more content not included)... Normal [facility] Eosinophil percentageOrdered By: Froy Cameron on 07-04-2024 Eosinophils/100 WBC (Bld) 3.6 % 0-5 [facility] Epithelial cells.squamous LM Ql (Urine sed)Ordered By: Froy Cameron on 07-04-2024 Epithelial cells.squamous LM.HPF (Urine sed) [#/Area] 0 /[HPF] 5-10 [facility] Erythrocyte distribution wid th ratioOrdered By: Froy Camerno on 07-04-2024 Erythrocyte distribution width (RBC) [Ratio] 13.4 % 11.6-14.6 [facility] Erythrocyte distribution wid th standard deviationOrdered By: Froy Cameron on 07-04-2024 Erythrocyte distribution width (RBC) [Entitic vol] 48.0 fL High 35.1-43.9 [facility] Erythrocyte distribution width (RBC) [Ratio] 48.0 fl High 35.1-43.9 [facility] Estimation of creatinine wilmer aranceOrdered By: Froy Cameron on 07-04-2024 Estimated Creatinine Clearance Calc 61.64 ml/min 50-250 [facility] GFR/1.73 sq M.predicted kai g non-blacks MDRD (S/P/Bld) [Vol rate/Area]Ordered By: Froy Cameron on 07-04-2024 Estimated GFR (MDRD) Non-Af Amer 77 >60 [facility] Comment on above: mL/min/1.73m2 CKD-EP I Creatinine Equation (2020) Glomerular filtration rate ( GFR) estimation/1.73 sq m using serum, plasma, or whole bOrdered By: Froy Cameron on 07-04-2024 GFR/1.73 sq M.predicted among non-blacks MDRD (S/P/Bld) [Vol rate/Area] 77 mL/min/{1.73_m2} >60 [facility] Comment on above: mL/min/1.73m2 CKD-EP I Creatinine Equation (2020) Glucose Ql (U)Ordered By: Miracle Cameron on 07-04-2024 Urine Glucose (UA) Normal mg/dl Normal [facility] Hematocrit Auto (Bld) [Volum e fraction]Ordered By: Froy Cameron on 07-04-2024 Hematocrit (Bld) [Volume fraction] 36.9 % Low 37-47 [facility] Hemoglobin measurementOrdere d By: Froy Cameron on 07-04-2024 Hemoglobin (Bld) [Mass/Vol] 12.3 g/dL 12.0-15.0 [facility] Immature granulocytes/100 WB C Auto (Bld)Ordered By: Froy Cameron on 07-04-2024 Immature granulocytes/100 WBC (Bld) 0.400 % 0.0-0.9 [facility] Comment on above: IG% - Immature Granu locytes (promyelocytes, myelocytes and metamyelocytes) > 1% indicates that a LEFT SHIFT is Present. Influenza virus A and B and SARS-CoV-2 (COVID-19) and Respiratory syncytial virus RNAOrdered By: Froy Cameron on 07-04-2024 SARS-CoV-2 (COVID-19) RNA LEONA+probe Ql (Unsp spec) [facility] Ketones Test strip Ql (U)Ord ered By: Froy Cameron on 07-04-2024 Ketones Ql (U) Negative Negative [facility] - Chemistry and C hemistry - challengeOrdered By: Froy Cameron on 07-04-2024 AST [Catalytic activity/Vol] 21 U/L <32 [facility] Lymphocytes Auto (Unsp spec) [#/Vol]Ordered By: Froy Cameron on 07-04-2024 Lymphocytes (Bld) [#/Vol] 1.95 10*3/uL 0.83-4.51 [facility] Lymphocytes/100 WBC Auto (Un sp spec)Ordered By: Froy Cameron on 07-04-2024 Lymphocytes/100 WBC (Bld) 21.2 % 19-41 [facility] M100.678on 07-04-2024 M100.678 SARS-CoV-2 (COVID 19 ) Negative INFLUENZA A Negative INFLUENZA B Negative RSV PCR Negative Normal [facility] Comment on above: Performed By: #### L 500.4050, L100.0100, L501.3620 #### [facility] [address] [place], [address] MCV (mean corpuscular volume ) determinationOrdered By: Froy Cameron on 07-04-2024 MCV (RBC) [Entitic vol] 97.6 fL 81-99 [facility] Mean corpuscular hemoglobin (MCH) determinationOrdered By: Froy Cameron on 07-04-2024 MCH (RBC) [Entitic mass] 32.5 pg High 27.0-32.0 [facility] Mean corpuscular hemoglobin concentration (MCHC) determinationOrdered By: Froy Cameron on 07-04-2024 MCHC (RBC) [Mass/Vol] 33.3 g/dL 32-36 [facility] Mean platelet volume determi nationOrdered By: Froy Cameron on 07-04-2024 Platelet mean volume (Bld) [Entitic vol] 11.8 fL 6.2-12.0 [facility] Microscopic analysis of urin e for red blood cells (RBC)Ordered By: Froy Cameron on 07-04-2024 Microscopic analysis of urine for red blood cells (RBC) 0 SEEN /hpf 0-5 [facility] Urine RBC 0 SEEN /hpf 0-5 [facility] Monocyte percentageOrdered B y: Froy Cameron on 07-04-2024 Monocytes/100 WBC (Bld) 8.9 % 0-10 [facility] Mucus LM Ql (Urine sed)Order ed By: Froy Cameron on 07-04-2024 Mucus Ql (Urine sed) 0 SEEN /hpf [facility] Neutrophil percentageOrdered By: Froy Cameron on 07-04-2024 Neutrophils/100 WBC (Bld) 65.0 % 47-70 [facility] Nitrite Test strip Ql (U)Ord ered By: Froy Cameron on 07-04-2024 Nitrite Ql (U) Negative Negative [facility] Nucleated red blood cell per centageOrdered By: Froy Cameron on 07-04-2024 Nucleated RBC/100 WBC (Bld) [Ratio] 0 % 0-5 [facility] Platelet countOrdered By: Miracle Cameron on 07-04-2024 Platelets (Bld) [#/Vol] 236 10*3/uL 150-450 [facility] Potassium (Unsp spec) [Mass/ Vol]Ordered By: Froy Cameron on 07-04-2024 Potassium [Moles/Vol] 4.0 mmol/L 3.3-5.1 [facility] Potassium measurement (mass/ volume)Ordered By: Froy Cameron on 07-04-2024 Potassium (Unsp spec) [Mass/Vol] 4.0 mmol/L 3.3-5.1 [facility] Protein Test strip Ql (U)Ord ered By: Froy Cameron on 07-04-2024 Protein Ql (U) Negative Negative [facility] RBC Auto (Bld) [#/Vol]Ordere d By: Froy Cameron on 07-04-2024 RBC (Bld) [#/Vol] 3.78 10*6/uL Low 4.2-5.4 [facility] Serum creatinine measurement (mass/volume)Ordered By: Froy Cameron on 07-04-2024 Creatinine [Mass/Vol] 0.79 mg/dL 0.70-1.20 [facility] Serum globulin measurementOr dered By: Froy Cameron on 07-04-2024 Globulin (S) [Mass/Vol] 2.9 g/dL 2.2-4.2 [facility] Serum glucose measurement (m ass/volume)Ordered By: Froy Cameron on 07-04-2024 Glucose [Mass/Vol] 98 mg/dL 70-99 [facility] Serum or plasma alanine kaur otransferase (ALT) measurementOrdered By: Froy Cameron on 07-04-2024 ALT [Catalytic activity/Vol] 12 U/L <35 [facility] Serum or plasma albumin rajni urement (mass/volume)Ordered By: Froy Cameron on 07-04-2024 Albumin [Mass/Vol] 4.0 g/dL 3.4-4.8 [facility] Serum or plasma albumin/glob ulin mass ratioOrdered By: Froy Cameron on 07-04-2024 Albumin/Globulin [Mass ratio] 1.4 {ratio} 0.9-2.4 [facility] Serum or plasma alkaline dedra sphatase measurementOrdered By: Froy Cameron on 07-04-2024 ALP [Catalytic activity/Vol] 82 U/L 35-104 [facility] Serum or plasma calcium rajni urement (mass/volume)Ordered By: Froy Cameron on 07-04-2024 Calcium [Mass/Vol] 8.6 mg/dL 7.6-11.0 [facility] Serum or plasma urea nitroge n measurement (mass/volume)Ordered By: Froy Cameron 07-04-2024 Urea nitrogen [Mass/Vol] 16 mg/dL 4-19 [facility] Sodium levelOrdered By: Froy Cameron 07-04-2024 Sodium [Moles/Vol] 139 mmol/L 133-145 [facility] Squamous epithelial cells de tection in urine sediment by light microscopyOrdered By: Froy Cameron on 07-04-2024 Epithelial cells.squamous LM Ql (Urine sed) 0 SEEN /hpf 5-10 [facility] TSH DL <= 0.005 mIU/L QnOrde red By: Froy Cameron on 07-04-2024 Thyroid Stimulating Hormone (TSH) 0.164 uIU/mL Low 0.300-4.200 [facility] TSH Qn 0.164 uIU/mL Low 0.300-4.200 [facility] Thyroid Stim Hormone (TSH)on 07-04-2024 TSH 0.164 uIU/mL Low 0.300-4.200 [facility] Comment on above: Performed By: #### L 500.4050, L100.0100, L501.3620 #### [facility] [address] [place], [address] Total proteinOrdered By: Zeenat Cameron on 07-04-2024 Protein [Mass/Vol] 6.9 g/dL 5.9-8.4 [facility] Urinalysis, Completeon 07-04 AMORPHOUS 2+ PHOS Normal [facility] Comment on above: Order Comment: COLLE CTOR TO SPECIFY Performed By: #### L 500.4050, L100.0100, L501.3620 #### [facility] [address] [place], [address] RBC 0 SEEN Normal 0-5 [facility] Comment on above: Order Comment: COLLE CTOR TO SPECIFY Performed By: #### L 500.4050, L100.0100, [id number] #### [facility] [address] [place], [address] WBC 0-5 SEEN Normal 0-5 [facility] Comment on above: Order Comment: COLLE CTOR TO SPECIFY Performed By: #### L 500.4050, L100.0100, [id number] #### [facility] [address] [place], [address] BACTERIA 0 SEEN Normal None Seen [facility] Comment on above: Order Comment: COLLE CTOR TO SPECIFY Performed By: #### L 500.4050, L100.0100, [id number] #### [facility] [address] [place], [address] EPI,SQUAMOUS 0 SEEN Normal 5-10 [facility] Comment on above: Order Comment: FER CTOR TO SPECIFY Performed By: #### L 500.4050, L100.0100, [id number] #### [facility] [address] [place], [address] Mucus Ql (Urine sed) 0 SEEN Normal [facility] Comment on above: Order Comment: COLLE CTOR TO SPECIFY Performed By: #### L 500.4050, L100.0100, L501.3620 #### [facility] [address] [place], [address] Urine blood detectionOrdered By: Froy Cameron on 07-04-2024 Urine Occult Blood Negative Negative [facility] Urine clarityOrdered By: Zeenat Cameron on 07-04-2024 Clarity (U) Clear Clear [facility] Urine color determinationOrd ered By: Froy Cameron on 07-04-2024 Color (U) Straw Yellow [facility] Urine glucose detectionOrder ed By: Froy Cameron on 07-04-2024 Glucose Ql (U) Normal mg/dl Normal [facility] Urine leukocyte esterase det ection by dipstickOrdered By: Froy Cameron on 07-04-2024 Leukocyte esterase Test strip Ql (U) Negative Negative [facility] Urine pHOrdered By: Froy gonzalez on 07-04-2024 pH (U) 8.0 [pH] 5.0 - 8.0 [facility] Urine sediment bacteria coun t by microscopy (number/high power field)Ordered By: Froy Cameron on 07-04-2024 Bacteria LM.HPF (Urine sed) [#/Area] 0 /[HPF] None Seen [facility] Urine specific gravity measu rementOrdered By: Froy Cameron on 07-04-2024 Specific gravity (U) [Rel density] 1.010 1.002-1.030 [facility] Urine urobilinogen measureme ntOrdered By: Froy Cameron on 07-04-2024 Urobilinogen Ql (U) Normal mg/dl Normal [facility] Urobilinogen Ql (U)Ordered B y: Froy Cameron on 07-04-2024 Urine Urobilinogen Normal mg/dl Normal [facility] White blood cell (WBC) count Ordered By: Froy Cameron on 07-04-2024 WBC (Bld) [#/Vol] 9.2 10*3/uL 4.4-11.0 [facility] White blood cell countOrdere d By: Froy Lundbergalexandria on 07-04-2024 Urine WBC 0-5 SEEN /hpf 0-5 [facility] White blood cell count 0-5 SEEN /hpf 0-5 [facility] Chest PA and Lateralon 06-04 Chest PA and Lateral [facility] [address], [place] [address] Chest PA and Lateral MR#: [id number] Acct: [id number] Name: AIDEN FIELDS Rep #: [id number] : 1945 F 78 From: [place] Mckenna PCP: Dr. Erica Richardson DO Status: REG CLI Study: Chest PA and Lateral Date of Exam: 06/04/24 Exam# [id number] Ordering Dr: Erica Richardson DO PROCEDURE: CHEST [...] noted. No evidence of cardiomegaly. Reading Location: [address] CC: Dr. Erica Richardson DO Bulk Fluids Handler: Signed Normal [facility] Urine Cultureon 05-29-2024 [facility] Enterobacter cloacae complex [place] Count 25,000-50,000 Enterobacter cloacae complex: REACTION Cefepime Islt BENJAMIN <=0.12 Ciprofloxacin Islt BENJAMIN <=0.06 S Gentamicin Islt BENJAMIN <=1 S levoFLOXacin Islt BENJAMIN <=0.12 S Meropenem Islt BENJAMIN <=0.25 S Nitrofurantoin Islt BENJAMIN 32 S Pip+Tazo Islt BENJAMIN <=4 S TMP SMX Islt BENJAMIN >=320 R Normal [facility] Comment on above: Performed By: #### L 500.4050, L100.0100, L501.3620 #### [facility] [address] [place], [address] Absolute lymphocyte countOrd ered By: Erica Richardson on 05-27-2024 Lymphocytes Auto (Unsp spec) [#/Vol] 1.94 10*3/uL 0.83-4.51 [facility] Absolute neutrophil countOrd ered By: Erica Richardson on 05-27-2024 Neutrophils (Bld) [#/Vol] 5.9 10*3/uL 2.0-7.7 [facility] Albumin to globulin ratioOrd ered By: Erica Richardson on 05-27-2024 Albumin/Globulin [Mass ratio] 0.9 {ratio} 0.9-2.4 [facility] Automated lymphocyte count a s percentage of total leukocytesOrdered By: Erica Richardson on 05-27-2024 Lymphocytes/100 WBC Auto (Unsp spec) 21.2 % 19-41 [facility] Basophil percentageOrdered B y: Erica Richardson on 05-27-2024 Basophils/100 WBC (Bld) 0.8 % 0-1 [facility] Bilirubin, totalOrdered By: Erica Richardson on 05-27-2024 Bilirubin [Mass/Vol] 0.60 mg/dL 0.20-1.00 [facility] Comment on above: For patients on eltr ombopag therapy, use of Dimension [place] TBIL is not recommended. Blood urea nitrogen (BUN)/cr eatinine ratioOrdered By: Erica Richardson on 05-27-2024 Urea nitrogen/Creatinine [Mass ratio] 15.1 mg/mg 10-20 [facility] C-reactive protein measureme nt by high sensitivity methodOrdered By: Erica Richardson on 05-27-2024 C-Reactive Protein Extended Range 6.23 mg/L High 0.0-3.0 [facility] Comment on above: C-Reactive Protein ( CRP) provides useful information for thediagnosis, therapy and monitoring of inflammatory processesand associated diseases. For the evaluation of Relative Riskfor Cardiovascular Disease, a High Sensitivity CRP (HSCRP)should be ordered. C-reactive protein measurement by high sensitivity method 6.23 mg/L High 0.0-3.0 [facility] Comment on above: C-Reactive Protein ( CRP) provides useful information for thediagnosis, therapy and monitoring of inflammatory processesand associated diseases. For the evaluation of Relative Riskfor Cardiovascular Disease, a High Sensitivity CRP (HSCRP)should be ordered. CBC W/Diff, Automatedon -0 5-2024 Absolute Lymph 1.94 X10 3/uL Normal 0.83-4.51 [facility] Comment on above: Performed By: #### L 500.4050, L100.0100, L501.3620 #### [facility] [address] [place], [address] Absolute Neut 5.9 X10 3/uL Normal 2.0-7.7 [facility] Comment on above: Performed By: #### L 500.4050, L100.0100, L501.3620 #### [facility] [address] [place], [address] Basophils/100 WBC (Bld) 0.8 % Normal 0-1 [facility] Comment on above: Performed By: #### L 500.4050, L100.0100, [id number] #### [facility] [address] [place], [address] Eosinophils/100 WBC (Bld) 3.8 % Normal 0-5 [facility] Comment on above: Performed By: #### L 500.4050, L100.0100, [id number] #### [facility] [address] [place], [address] Erythrocyte distribution width (RBC) [Ratio] 14.0 % Normal 11.6-14.6 [facility] Comment on above: Performed By: #### L 500.4050, L100.0100, L501.3620 #### [facility] [address] [place], [address] Hematocrit (Bld) [Volume fraction] 39.2 % Normal 37-47 [facility] Comment on above: Performed By: #### L 500.4050, L100.0100, [id number] #### [facility] [address] [place], [address] Hemoglobin (Bld) [Mass/Vol] 12.6 g/dL Normal 12.0-15.0 [facility] Comment on above: Performed By: #### L 500.4050, L100.0100, L501.3620 #### [facility] [address] [place], [address] IG% 0.300 Normal 0.0-0.9 [facility] Comment on above: Result Comment: IG% - Immature Granulocytes (promyelocytes, myelocytes and metamyelocytes) > 1% indicates that a LEFT SHIFT is Present. Performed By: #### L 500.4050, L100.0100, L501.3620 #### [facility] [address] [place], [address] Lymphocytes/100 WBC (Bld) 21.2 % Normal 19-41 [facility] Comment on above: Performed By: #### L 500.4050, L100.0100, [id number] #### [facility] [address] [place], [address] MCH (RBC) [Entitic mass] 32.0 pg Normal 27.0-32.0 [facility] Comment on above: Performed By: #### L 500.4050, L100.0100, L501.3620 #### [facility] [address] [place], [address] MCHC (RBC) [Mass/Vol] 32.1 g/dL Normal 32-36 [facility] Comment on above: Performed By: #### L 500.4050, L100.0100, L501.3620 #### [facility] [address] [place], [address] MCV (RBC) [Entitic vol] 99.5 fL High 81-99 [facility] Comment on above: Performed By: #### L 500.4050, L100.0100, L501.3620 #### [facility] [address] [place], [address] Monocytes/100 WBC (Bld) 9.0 % Normal 0-10 [facility] Comment on above: Performed By: #### L 500.4050, L100.0100, [id number] #### [facility] [address] [place], [address] Neutrophils/100 WBC (Bld) 64.9 % Normal 47-70 [facility] Comment on above: Performed By: #### L 500.4050, L100.0100, [id number] #### [facility] [address] [place], [address] Nucleated RBC (Bld) [#/Vol] 0 10*3/uL Normal 0-5 [facility] Comment on above: Performed By: #### L 500.4050, L100.0100, L501.3620 #### [facility] [address] [place], [address] Platelet mean volume (Bld) [Entitic vol] 12.7 fL High 6.2-12.0 [facility] Comment on above: Performed By: #### L 500.4050, L100.0100, L501.3620 #### [facility] [address] [place], [address] Platelets (Bld) [#/Vol] 239 10*3/uL Normal 150-450 [facility] Comment on above: Performed By: #### L 500.4050, L100.0100, L501.3620 #### [facility] [address] [place], [address] RBC (Bld) [#/Vol] 3.94 10*6/uL Low 4.2-5.4 [facility] Comment on above: Performed By: #### L 500.4050, L100.0100, L501.3620 #### [facility] [address] [place], [address] RDW SD 51.3 fl High 35.1-43.9 [facility] Comment on above: Performed By: #### L 500.4050, L100.0100, [id number] #### [facility] [address] [place], [address] WBC (Bld) [#/Vol] 9.1 10*3/uL Normal 4.4-11.0 [facility] Comment on above: Performed By: #### L 500.4050, L100.0100, L501.3620 #### [facility] [address] [place], [address] CRPon 05-27-2024 C-REACTIVE PROT 6.23 mg/L High 0.0-3.0 [facility] Comment on above: Result Comment: C-Re active Protein (CRP) provides useful information for the diagnosis, therapy and monitoring of inflammatory processes and associated diseases. For the evaluation of Relative Risk for Cardiovascular Disease, a High Sensitivity CRP (HSCRP) should be ordered. Performed By: #### L 500.4050, L100.0100, L501.3620 #### [facility] [address] [place], [address] Carbon dioxide measurementOr dered By: Erica Richardson on 05-27-2024 CO2 [Moles/Vol] 26.0 mmol/L 21.0-32.0 [facility] Chloride measurementOrdered By: Erica Richardson on 05-27-2024 Chloride [Moles/Vol] 99 mmol/L 98-107 [facility] Comprehensive Metabolic Prof ilon 05-27-2024 Albumin [Mass/Vol] 3.6 g/dL Normal 3.2-5.0 [facility] Comment on above: Performed By: #### L 500.4050, L100.0100, L501.3620 #### [facility] [address] [place], [address] Albumin/Globulin [Mass ratio] 0.9 {ratio} Normal 0.9-2.4 [facility] Comment on above: Performed By: #### L 500.4050, L100.0100, L501.3620 #### [facility] [address] [place], [address] ALK P 90 U/L Normal 45-117 [facility] Comment on above: Performed By: #### L 500.4050, L100.0100, L501.3620 #### [facility] [address] [place], [address] ALT [Catalytic activity/Vol] 20 U/L Normal 13-56 [facility] Comment on above: Performed By: #### L 500.4050, L100.0100, L501.3620 #### [facility] [address] [place], [address] AST [Catalytic activity/Vol] 17 U/L Normal 15-37 [facility] Comment on above: Performed By: #### L 500.4050, L100.0100, L501.3620 #### [facility] [address] [place], [address] Bilirubin [Mass/Vol] 0.60 mg/dL Normal 0.20-1.00 [facility] Comment on above: Result Comment: For patients on eltrombopag therapy, use of Dimension [place] TBIL is not recommended. Performed By: #### L 500.4050, L100.0100, L501.3620 #### [facility] [address] [place], [address] BUN/CRE 15.1 RATIO Normal 10-20 [facility] Comment on above: Performed By: #### L 500.4050, L100.0100, L501.3620 #### [facility] [address] [place], [address] CA,Total 8.8 mg/dL Normal 8.5-10.1 [facility] Comment on above: Performed By: #### L 500.4050, L100.0100, L501.3620 #### [facility] [address] [place], [address] Chloride [Moles/Vol] 99 mmol/L Normal 98-107 [facility] Comment on above: Performed By: #### L 500.4050, L100.0100, L501.3620 #### [facility] [address] [place], [address] CO2 [Moles/Vol] 26.0 mmol/L Normal 21.0-32.0 [facility] Comment on above: Performed By: #### L 500.4050, L100.0100, L501.3620 #### [facility] [address] [place], [address] Creatinine [Mass/Vol] 0.79 mg/dL Normal 0.55-1.02 [facility] Comment on above: Result Comment: The validity of the calculated GFR GFRAA in patients over 70 years has not been determined. Clinical correlation is essential. Performed By: #### L 500.4050, L100.0100, L501.3620 #### [facility] [address] [place], [address] EST GFR - AA 90 mL/min Normal >60 [facility] Comment on above: Result Comment: Afri can [place] GFR Calc Performed By: #### L 500.4050, L100.0100, [id number] #### [facility] [address] [place], [address] GAP 11 Normal 5-15 [facility] Comment on above: Performed By: #### L 500.4050, L100.0100, L501.3620 #### [facility] [address] [place], [address] GFR/1.73 sq M.predicted among non-blacks MDRD (S/P/Bld) [Vol rate/Area] 75 mL/min/{1.73_m2} Normal >60 [facility] Comment on above: Result Comment: Non- GFR Calc Performed By: #### L 500.4050, L100.0100, L501.3620 #### [facility] [address] [place], [address] Globulin (S) [Mass/Vol] 4.1 g/dL Normal 2.2-4.2 [facility] Comment on above: Performed By: #### L 500.4050, L100.0100, L501.3620 #### [facility] [address] [place], [address] Glucose [Mass/Vol] 87 mg/dL Normal 74-106 [facility] Comment on above: Performed By: #### L 500.4050, L100.0100, L501.3620 #### [facility] [address] [place], [address] Potassium [Moles/Vol] 3.9 mmol/L Normal 3.5-5.1 [facility] Comment on above: Performed By: #### L 500.4050, L100.0100, L501.3620 #### [facility] [address] [place], [address] Sodium [Moles/Vol] 136 mmol/L Normal 136-145 [facility] Comment on above: Performed By: #### L 500.4050, L100.0100, L501.3620 #### [facility] [address] [place], [address] T PROT 7.7 g/dL Normal 6.4-8.2 [facility] Comment on above: Performed By: #### L 500.4050, L100.0100, L501.3620 #### [facility] [address] [place], [address] Urea nitrogen [Mass/Vol] 12 mg/dL Normal 7-18 [facility] Comment on above: Performed By: #### L 500.4050, L100.0100, L501.3620 #### [facility] [address] [place], [address] Direct serum free thyroxine (FT4) measurementOrdered By: Erica Richardson on 05-27-2024 Free T4 [Mass/Vol] 1.14 ng/dL 0.76-1.46 [facility] Eosinophil percentageOrdered By: Erica Richardson on 05-27-2024 Eosinophils/100 WBC (Bld) 3.8 % 0-5 [facility] Erythrocyte Sed Rateon 05-27 SED RATE 35 mm/hr High 0-30 [facility] Comment on above: Performed By: #### L 500.4050, L100.0100, L501.3620 #### [facility] [address] [place], [address] Erythrocyte distribution wid th ratioOrdered By: Erica Richardson on 05-27-2024 Erythrocyte distribution width (RBC) [Ratio] 14.0 % 11.6-14.6 [facility] Erythrocyte distribution wid th standard deviationOrdered By: Erica Richardson on 05-27-2024 Erythrocyte distribution width (RBC) [Entitic vol] 51.3 fL High 35.1-43.9 [facility] Erythrocyte distribution width (RBC) [Ratio] 51.3 fl High 35.1-43.9 [facility] Erythrocyte sedimentation ra teOrdered By: Erica Richardson on 05-27-2024 ESR (Bld) [Velocity] 35 mm/h High 0-30 [facility] Estimated glomerular filtrat ion rate (GFR) AmericanOrdered By: Erica Richardson on 05-27-2024 Estimated GFR (MDRD) Amer 90 mL/min >60 [facility] Comment on above: GFR Calc Free T3on 05-27-2024 Free T3 [Mass/Vol] 2.0 pg/mL Low 2.18-3.98 [facility] Comment on above: Performed By: #### L 500.4050, L100.0100, L501.3620 #### [facility] [address] [place] [address], [id number] Free [id number] By: Erica Moeller s on 05-27-2024 Free T3 [Mass/Vol] 2.0 pg/mL Low 2.18-3.98 [facility] Free Triiodothyronine (T3) pg/dL 2.0 pg/mL Low 2.18-3.98 [facility] Glomerular filtration rate ( GFR) estimationOrdered By: Erica Richardson on 05-27-2024 Estimated GFR (MDRD) Non-Af Amer 75 mL/min >60 [facility] Comment on above: Non- GFR Calc GFR/1.73 sq M.predicted among non-blacks MDRD (S/P/Bld) [Vol rate/Area] 75 mL/min/{1.73_m2} >60 [facility] Comment on above: Non- GFR Calc Glucose measurementOrdered B y: Erica Richardson on 05-27-2024 Glucose [Mass/Vol] 87 mg/dL 74-106 [facility] Hematocrit Auto (Bld) [Volum e fraction]Ordered By: Erica Richardson on 05-27-2024 Hematocrit (Bld) [Volume fraction] 39.2 % 37-47 [facility] Hemoglobin measurementOrdere d By: Erica Richardson on 05-27-2024 Hemoglobin (Bld) [Mass/Vol] 12.6 g/dL 12.0-15.0 [facility] Immature granulocytes/100 WB C Auto (Bld)Ordered By: Erica Richardson on 05-27-2024 Immature granulocytes/100 WBC (Bld) 0.300 % 0.0-0.9 [facility] Comment on above: IG% - Immature Granu locytes (promyelocytes, myelocytes and metamyelocytes) > 1% indicates that a LEFT SHIFT is Present. Laboratory - Chemistry and C hemistry - challengeOrdered By: Erica Richardson on 05-27-2024 AST [Catalytic activity/Vol] 17 U/L 15-37 [facility] Lymphocytes Auto (Unsp spec) [#/Vol]Ordered By: Erica Richardson on 05-27-2024 Lymphocytes (Bld) [#/Vol] 1.94 10*3/uL 0.83-4.51 [facility] Lymphocytes/100 WBC Auto (Un sp spec)Ordered By: Erica Richardson on 05-27-2024 Lymphocytes/100 WBC (Bld) 21.2 % 19-41 [facility] MCV (mean corpuscular volume ) determinationOrdered By: Erica Richardson on 05-27-2024 MCV (RBC) [Entitic vol] 99.5 fL High 81-99 [facility] Mean corpuscular hemoglobin (MCH) determinationOrdered By: Erica Richardson on 05-27-2024 MCH (RBC) [Entitic mass] 32.0 pg 27.0-32.0 [facility] Mean corpuscular hemoglobin concentration (MCHC) determinationOrdered By: Erica Richardson on 05-27-2024 MCHC (RBC) [Mass/Vol] 32.1 g/dL 32-36 [facility] Mean platelet volume determi nationOrdered By: Erica Richardson on 05-27-2024 Platelet mean volume (Bld) [Entitic vol] 12.7 fL High 6.2-12.0 [facility] Monocyte percentageOrdered B y: Erica Richardson on 05-27-2024 Monocytes/100 WBC (Bld) 9.0 % 0-10 [facility] Neutrophil percentageOrdered By: Erica Richardson on 05-27-2024 Neutrophils/100 WBC (Bld) 64.9 % 47-70 [facility] Nucleated red blood cell per centageOrdered By: Erica Richardson on 05-27-2024 Nucleated RBC/100 WBC (Bld) [Ratio] 0 % 0-5 [facility] Platelet countOrdered By: Anny Richardson on 05-27-2024 Platelets (Bld) [#/Vol] 239 10*3/uL 150-450 [facility] Potassium measurementOrdered By: Erica Richardson on 05-27-2024 Potassium [Moles/Vol] 3.9 mmol/L 3.5-5.1 [facility] RBC Auto (Bld) [#/Vol]Ordere d By: Erica Richardson on 05-27-2024 RBC (Bld) [#/Vol] 3.94 10*6/uL Low 4.2-5.4 [facility] Serum anion gap measurementO rdered By: Erica Richardson on 05-27-2024 Anion gap [Moles/Vol] 11 mmol/L 5-15 [facility] Serum globulin measurementOr dered By: Erica Richardson on 05-27-2024 Globulin (S) [Mass/Vol] 4.1 g/dL 2.2-4.2 [facility] Serum or plasma alanine kaur otransferase (ALT) measurementOrdered By: Erica Richardson on 05-27-2024 ALT [Catalytic activity/Vol] 20 U/L 13-56 [facility] Serum or plasma albumin rajni urement (mass/volume)Ordered By: Erica Richardson on 05-27-2024 Albumin [Mass/Vol] 3.6 g/dL 3.2-5.0 [facility] Serum or plasma alkaline dedra sphatase measurementOrdered By: Erica Richardson on 05-27-2024 ALP [Catalytic activity/Vol] 90 U/L 45-117 [facility] Serum or plasma calcium rajni urement (mass/volume)Ordered By: Erica Richardson on 05-27-2024 Calcium [Mass/Vol] 8.8 mg/dL 8.5-10.1 [facility] Serum or plasma creatinine m easurement (mass/volume)Ordered By: Erica Richardson on 05-27-2024 Creatinine [Mass/Vol] 0.79 mg/dL 0.55-1.02 [facility] Comment on above: The validity of the calculated GFR & GFRAA in patients over 70 years has not been determined. Clinical correlation is essential. Serum or plasma thyroid stim ulating hormone (TSH) measurement (units/volume)Ordered By: Erica Richardson on 05-27-2024 TSH Qn 2.650 uIU/mL 0.358-3.740 [facility] Serum or plasma urea nitroge n measurement (mass/volume)Ordered By: Erica Richardson on 05-27-2024 Urea nitrogen [Mass/Vol] 12 mg/dL 7-18 [facility] Sodium levelOrdered By: Erica Richardson on 05-27-2024 Sodium [Moles/Vol] 136 mmol/L 136-145 [facility] T4 Free Directon 05-27-2024 T4 FREE DIRECT 1.14 ng/dL Normal 0.76-1.46 [facility] Comment on above: Performed By: #### L 500.4050, L100.0100, L501.3620 #### [facility] [address] [place], [place], [id number] TSH QnOrdered By: Erica Richardson on 05-27-2024 Thyroid Stimulating Hormone (TSH) 2.650 uIU/mL 0.358-3.740 [facility] Thyroid Stim Hormone (TSH)on 05-27-2024 TSH 2.650 uIU/mL Normal 0.358-3.740 [facility] Comment on above: Performed By: #### L 500.4050, L100.0100, L501.3620 #### [facility] [address] [place], [address] Total proteinOrdered By: Elena Richardson on 05-27-2024 Protein [Mass/Vol] 7.7 g/dL 6.4-8.2 [facility] Urine cultureOrdered By: Elena Richardson on 05-27-2024 Bacteria identified Cx Nom (U) Enterobacter cloacae complex Abnormal [facility] White blood cell (WBC) count Ordered By: Erica Richardson on 05-27-2024 WBC (Bld) [#/Vol] 9.1 10*3/uL 4.4-11.0 [facility] Urine Cultureon 04-26-2024 [facility]RC Presumptive E. coli [place] Count >100,000 Presumptive E. coli: REACTION Ampicillin [...] TMP SMX Islt BENJAMIN <=20 S Normal [facility] Comment on above: Performed By: #### L 500.4050, L100.0100, L501.3620 #### [facility] [address] [place], [address] Urine cultureOrdered By: Elena Richardson on 04-24-2024 Bacteria identified Cx Nom (U) Presumptive E. coli Abnormal [facility] 12 Lead EKGon 03-02-2024 12 Lead EKG [facility] [address] [place] [address] 12 Lead EKG 03/02/24 2201 MR#: [id number] Acct: [id number] Name: AIDEN FIELDS Consuelo Rep #: [id number] : 1945 78 From: Jose Hamilton MD [...] with sinus arrhythmia Normal ECG Confirmed by JOSE HAMILTON MD ([id number]), editor house organ JUVENCIO MARIA ([id number]) on 03/03/2024 6:42:17 AM Referred By: Confirmed By: JOSE HAMILTON MD 03/03/24 0642 Date Jose Hamilton MD CC: Dr. Cheikh Ybarra DO; Dr. Erica Richardson DO Signed Normal [facility] Emergency Department Summary on 03-02-2024 Emergency Department Summary [facility] Medical Records Department [address] [place] [address] Emergency Department Summary 03/02/24 MR#: [id number] Acct: [id number] Name: AIDEN FIELDS Rep #: [id number] : 1945 78 From: Cheikh Ybarra DO [...] any difficulty ambulating around the house today. [facility] Medical History Anxiety and depression Hypoparathyroidism after [...] Neosporin Allergy Unknown Unknown Verified 03/02/24 21:55 ([id number])) neomycin (From Neosporin Allergy Unknown Unknown Verified 03/02/24 21:55 ([id number])) polymyxin B (From Neosporin Allergy Unknown Unknown Verified 03/02/24 21:55 (nor-xpy-hpccr)) Antihistamines - Alkylamine Allergy PT UNSURE Verified [...] per d (more content not included)... Normal [facility] Emergency Department Summary on 12-18-2023 Emergency Department Summary [facility] Medical Records Department [address] [place] [address] Emergency Department Summary 12/18/23 MR#: [id number] Acct: [id number] Name: LIVENITHYAMIRACLEAIDEN B Rep #: [id number] : 1945 78 From: Jorge Cardona MD [...] similar symptoms: No Recent Illness/Hospitalization : No PFSH [facility] Medical History Anxiety and depression Hypoparathyroidism [...] Neosporin Allergy Unknown Unknown Verified 12/18/23 19:57 ([id number])) neomycin (From Neosporin Allergy Unknown Unknown Verified 12/18/23 19:57 (yaq-sgq-uumzn)) polymyxin B (From Neosporin Allergy Unknown Unknown Verified 12/18/23 19:57 (gjc-wka-qrqws)) Antihistamines - Alkylamine Allergy PT UNSURE Verified 12/18/23 19:57 OF REACTION diphenhydramine (From Allergy PT UNSURE Verified 12/18/23 19:57 Benadryl) OF REACTION Family History Unknown Thyroid disorder Cancer High (more content not included)... Normal [facility] ANTINUCLEAR ANTIBODIES DIREC Ton 12-13-2023 MASHA,DIRECT Negative Normal Negative [facility] Comment on above: Result Comment: Perf ormed at: [facility] [employer] [id number] Suppression Crew Leader: Mendez Dominguez PhD, Phone: [phone] Performed By: #### L 500.9750, L100.9260, L590.8038 #### [facility] [address] [place], [address] CCP IgG Antibodieson 024 CCP IgG Ab. 3 units Normal 0-19 [facility] Comment on above: Result Comment: Nega tive <20 Weak positive 20 - 39 Moderate positive 40 - 59 Strong positive >59 Performed at: [employer] [id number] Suppression Crew Leader: Mendez Dominguez PhD, Phone: [phone] Performed By: #### M 100.2200 #### [facility] [address] [place], [address] CBC W/Diff, Automatedon 11-21 Absolute Lymph 1.28 X10 3/uL Normal 0.83-4.51 [facility] Comment on above: Performed By: #### M 100.2200 #### [facility] [address] [place], [address] Absolute Neut 9.6 X10 3/uL High 2.0-7.7 [facility] Comment on above: Performed By: #### M 100.2200 #### [facility] [address] [place], [address] Basophils/100 WBC (Bld) 0.6 % Normal 0-1 [facility] Comment on above: Performed By: #### M 100.2200 #### [facility] [address] [place], [address] Eosinophils/100 WBC (Bld) 2.9 % Normal 0-5 [facility] Comment on above: Performed By: #### M 100.2200 #### [facility] [address] [place], [address] Erythrocyte distribution width (RBC) [Ratio] 13.2 % Normal 11.6-14.6 [facility] Comment on above: Performed By: #### M 100.2200 #### [facility] [address] [place], [address] Hematocrit (Bld) [Volume fraction] 39.3 % Normal 37-47 [facility] Comment on above: Performed By: #### M 100.2200 #### [facility] [address] [place], [address] Hemoglobin (Bld) [Mass/Vol] 12.4 g/dL Normal 12.0-15.0 [facility] Comment on above: Performed By: #### M 100.2200 #### [facility] [address] [place], [address] IG% 0.200 Normal 0.0-0.9 [facility] Comment on above: Result Comment: IG% - Immature Granulocytes (promyelocytes, myelocytes and metamyelocytes) > 1% indicates that a LEFT SHIFT is Present. Performed By: #### M 100.2200 #### [facility] [address] [place], [address] Lymphocytes/100 WBC (Bld) 10.5 % Low 19-41 [facility] Comment on above: Performed By: #### M 100.2200 #### [facility] [address] [place], [address] MCH (RBC) [Entitic mass] 32.5 pg High 27.0-32.0 [facility] Comment on above: Performed By: #### M 100.2200 #### [facility] [address] [place], [address] MCHC (RBC) [Mass/Vol] 31.6 g/dL Low 32-36 [facility] Comment on above: Performed By: #### M 100.2200 #### [facility] [address] [place], [address] MCV (RBC) [Entitic vol] 102.9 fL High 81-99 [facility] Comment on above: Performed By: #### M 100.2200 #### [facility] [address] [place], [address] Monocytes/100 WBC (Bld) 7.8 % Normal 0-10 [facility] Comment on above: Performed By: #### M 100.2200 #### [facility] [address] [place], [address] Neutrophils/100 WBC (Bld) 78.0 % High 47-70 [facility] Comment on above: Performed By: #### M 100.2200 #### [facility] [address] [place], [address] Nucleated RBC (Bld) [#/Vol] 0 10*3/uL Normal 0-5 [facility] Comment on above: Performed By: #### M 100.2200 #### [facility] [address] [place], [address] Platelet mean volume (Bld) [Entitic vol] 13.1 fL High 6.2-12.0 [facility] Comment on above: Performed By: #### M 100.2200 #### [facility] [address] [place], [address] Platelets (Bld) [#/Vol] 215 10*3/uL Normal 150-450 [facility] Comment on above: Performed By: #### M 100.2200 #### [facility] [address] [place], [address] RBC (Bld) [#/Vol] 3.82 10*6/uL Low 4.2-5.4 [facility] Comment on above: Performed By: #### M 100.2200 #### [facility] [address] [place], [address] RDW SD 49.6 fl High 35.1-43.9 [facility] Comment on above: Performed By: #### M 100.2200 #### [facility] [address] [place], [address] WBC (Bld) [#/Vol] 12.2 10*3/uL High 4.4-11.0 [facility] Comment on above: Performed By: #### M 100.2200 #### [facility] [address] [place], [address] CRPon 12-12-2023 C-REACTIVE PROT 40.10 mg/L High 0.0-3.0 [facility] Comment on above: Result Comment: C-Re active Protein (CRP) provides useful information for the diagnosis, therapy and monitoring of inflammatory processes and associated diseases. For the evaluation of Relative Risk for Cardiovascular Disease, a High Sensitivity CRP (HSCRP) should be ordered. Performed By: #### M 100.2200 #### [facility] [address] [place], [address] Comprehensive Metabolic Prof ilon 12-12-2023 Albumin [Mass/Vol] 3.8 g/dL Normal 3.2-5.0 [facility] Comment on above: Performed By: #### M 100.2200 #### [facility] [address] [place], [address] Albumin/Globulin [Mass ratio] 0.9 {ratio} Normal 0.9-2.4 [facility] Comment on above: Performed By: #### M 100.2200 #### [facility] [address] [place], [address] ALK P 90 U/L Normal 45-117 [facility] Comment on above: Performed By: #### M 100.2200 #### [facility] [address] [place], [address] ALT [Catalytic activity/Vol] 22 U/L Normal 13-56 [facility] Comment on above: Performed By: #### M 100.2200 #### [facility] [address] [place], [address] AST [Catalytic activity/Vol] 21 U/L Normal 15-37 [facility] Comment on above: Performed By: #### M 100.2200 #### [facility] [address] [place], [address] Bilirubin [Mass/Vol] 0.90 mg/dL Normal 0.20-1.00 [facility] Comment on above: Result Comment: For patients on eltrombopag therapy, use of Dimension [place] TBIL is not recommended. Performed By: #### M 100.2200 #### [facility] [address] [place], [address] BUN/CRE 12.5 RATIO Normal 10-20 [facility] Comment on above: Performed By: #### M 100.2200 #### [facility] [address] [place], [address] CA,Total 9.1 mg/dL Normal 8.5-10.1 [facility] Comment on above: Performed By: #### M 100.2200 #### [facility] [address] [place], [address] Chloride [Moles/Vol] 103 mmol/L Normal 98-107 [facility] Comment on above: Performed By: #### M 100.2200 #### [facility] [address] [place], [address] CO2 [Moles/Vol] 30.0 mmol/L Normal 21.0-32.0 [facility] Comment on above: Performed By: #### M 100.2200 #### [facility] [address] [place], [address] Creatinine [Mass/Vol] 0.96 mg/dL Normal 0.55-1.02 [facility] Comment on above: Result Comment: The validity of the calculated GFR GFRAA in patients over 70 years has not been determined. Clinical correlation is essential. Performed By: #### M 100.2200 #### [facility] [address] [place], [address] EST GFR - AA 72 mL/min Normal >60 [facility] Comment on above: Result Comment: Afri can [place] GFR Calc Performed By: #### M 100.2200 #### [facility] [address] [place], [address] GAP 7 Normal 5-15 [facility] Comment on above: Performed By: #### M 100.2200 #### [facility] [address] [place], [address] GFR/1.73 sq M.predicted among non-blacks MDRD (S/P/Bld) [Vol rate/Area] 60 mL/min/{1.73_m2} Normal >60 [facility] Comment on above: Result Comment: Non- GFR Calc Performed By: #### M 100.2200 #### [facility] [address] [place], [address] Globulin (S) [Mass/Vol] 4.2 g/dL Normal 2.2-4.2 [facility] Comment on above: Performed By: #### M 100.2200 #### [facility] [address] [place], [address] Glucose [Mass/Vol] 99 mg/dL Normal 74-106 [facility] Comment on above: Performed By: #### M 100.2200 #### [facility] [address] [place], [address] Potassium [Moles/Vol] 3.6 mmol/L Normal 3.5-5.1 [facility] Comment on above: Performed By: #### M 100.2200 #### [facility] [address] [place], [address] Sodium [Moles/Vol] 140 mmol/L Normal 136-145 [facility] Comment on above: Performed By: #### M 100.2200 #### [facility] [address] [place], [address] T PROT 8.0 g/dL Normal 6.4-8.2 [facility] Comment on above: Performed By: #### M 100.2200 #### [facility] [address] [place], [address] Urea nitrogen [Mass/Vol] 12 mg/dL Normal 7-18 [facility] Comment on above: Performed By: #### M 100.2200 #### [facility] [address] [place], [address] Erythrocyte Sed Rateon 12-11 SED RATE 12 mm/hr Normal 0-30 [facility] Comment on above: Performed By: #### M 100.2200 #### [facility] [address] [place], [address] Free T3on 12-12-2023 Free T3 [Mass/Vol] 2.2 pg/mL Normal 2.18-3.98 [facility] Comment on above: Performed By: #### M 100.2200 #### [facility] [address] [place], [place], [address] Rheumatoid Factoron 12-12-19 RHEUMATOID FAC < 10.0 Normal <15 [facility] Comment on above: Performed By: #### M 100.2200 #### [facility] [address] [place], [id number] T4 Free Directon 12-12-2023 T4 FREE DIRECT 1.32 ng/dL Normal 0.76-1.46 [facility] Comment on above: Performed By: #### M 100.2200 #### [facility] [address] [place], [place], [address] Thyroid Stim Hormone (TSH)on 12-12-2023 TSH 1.710 uIU/mL Normal 0.358-3.740 [facility] Comment on above: Performed By: #### M 100.2200 #### [facility] [address] [place], [place], [address] Vitamin D,25 Hydroxyon 12-11 Vitamin D 25-OH 29.4 ng/mL Normal [facility] Comment on above: Result Comment: Ana min D 25(OH) Status Range Deficiency <20 ng/mL (50nmol/L) Insufficiency 20 - 30 ng/mL (50 - 75 nmol/L) Sufficiency 30 - 100 ng/mL (75 - 250 nmol/L) Toxicity >100 ng/mL (>250 nmol/L) Performed By: #### M 100.2200 #### [facility] [address] [place], [place], [address] Urine Cultureon 10-12-2023 URC Proteus mirabilis [place] Count 50,000-80,000 Proteus mirabilis: REACTION Ampicillin Islt [...] TMP SMX Islt BENJAMIN <=20 S Normal [facility] Comment on above: Performed By: #### L 500.4050, L100.0100, L501.3620 #### [facility] [address] [place], [address] CBC W/Diff, Automatedon 06-2 0-2023 Absolute Lymph 2.05 X10 3/uL Normal 0.83-4.51 [facility] Comment on above: Performed By: #### L 500.4050, L100.0100, L501.3620 #### [facility] [address] [place], [address] Absolute Neut 5.1 X10 3/uL Normal 2.0-7.7 [facility] Comment on above: Performed By: #### L 500.4050, L100.0100, L501.3620 #### [facility] [address] [place], [address] Basophils/100 WBC (Bld) 0.9 % Normal 0-1 [facility] Comment on above: Performed By: #### L 500.4050, L100.0100, L501.3620 #### [facility] [address] [place], [address] Eosinophils/100 WBC (Bld) 5.5 % High 0-5 [facility] Comment on above: Performed By: #### L 500.4050, L100.0100, L501.3620 #### [facility] [address] [place], [address] Erythrocyte distribution width (RBC) [Ratio] 13.1 % Normal 11.6-14.6 [facility] Comment on above: Performed By: #### L 500.4050, L100.0100, L501.3620 #### [facility] [address] [place], [address] Hematocrit (Bld) [Volume fraction] 38.1 % Normal 37-47 [facility] Comment on above: Performed By: #### L 500.4050, L100.0100, L501.3620 #### [facility] [address] [place], [address] Hemoglobin (Bld) [Mass/Vol] 12.2 g/dL Normal 12.0-15.0 [facility] Comment on above: Performed By: #### L 500.4050, L100.0100, L501.3620 #### [facility] [address] [place], [address] IG% 0.500 Normal 0.0-0.9 [facility] Comment on above: Result Comment: IG% - Immature Granulocytes (promyelocytes, myelocytes and metamyelocytes) > 1% indicates that a LEFT SHIFT is Present. Performed By: #### L 500.4050, L100.0100, L501.3620 #### [facility] [address] [place], [address] Lymphocytes/100 WBC (Bld) 24.2 % Normal 19-41 [facility] Comment on above: Performed By: #### L 500.4050, L100.0100, L501.3620 #### [facility] [address] [place], [address] MCH (RBC) [Entitic mass] 32.3 pg High 27.0-32.0 [facility] Comment on above: Performed By: #### L 500.4050, L100.0100, L501.3620 #### [facility] [address] [place], [address] MCHC (RBC) [Mass/Vol] 32.0 g/dL Normal 32-36 [facility] Comment on above: Performed By: #### L 500.4050, L100.0100, L501.3620 #### [facility] [address] [place], [address] MCV (RBC) [Entitic vol] 100.8 fL High 81-99 [facility] Comment on above: Performed By: #### L 500.4050, L100.0100, L501.3620 #### [facility] [address] [place], [address] Monocytes/100 WBC (Bld) 8.4 % Normal 0-10 [facility] Comment on above: Performed By: #### L 500.4050, L100.0100, L501.3620 #### [facility] [address] [place], [address] Neutrophils/100 WBC (Bld) 60.5 % Normal 47-70 [facility] Comment on above: Performed By: #### L 500.4050, L100.0100, L501.3620 #### [facility] [address] [place], [address] Nucleated RBC (Bld) [#/Vol] 0 10*3/uL Normal 0-5 [facility] Comment on above: Performed By: #### L 500.4050, L100.0100, L501.3620 #### [facility] [address] [place], [address] Platelet mean volume (Bld) [Entitic vol] 12.7 fL High 6.2-12.0 [facility] Comment on above: Performed By: #### L 500.4050, L100.0100, L501.3620 #### [facility] [address] [place], [address] Platelets (Bld) [#/Vol] 246 10*3/uL Normal 150-450 [facility] Comment on above: Performed By: #### L 500.4050, L100.0100, L501.3620 #### [facility] [address] [place], [address] RBC (Bld) [#/Vol] 3.78 10*6/uL Low 4.2-5.4 [facility] Comment on above: Performed By: #### L 500.4050, L100.0100, L501.3620 #### [facility] [address] [place], [address] RDW SD 47.9 fl High 35.1-43.9 [facility] Comment on above: Performed By: #### L 500.4050, L100.0100, L501.3620 #### [facility] [address] [place], [address] WBC (Bld) [#/Vol] 8.5 10*3/uL Normal 4.4-11.0 [facility] Comment on above: Performed By: #### L 500.4050, L100.0100, L501.3620 #### [facility] [address] [place], [address] Comprehensive Metabolic Prof [facility] 10-10-2023 Albumin [Mass/Vol] 3.5 g/dL Normal 3.2-5.0 [facility] Comment on above: Performed By: #### L 500.4050, L100.0100, L501.3620 #### [facility] [address] [place], [address] Albumin/Globulin [Mass ratio] 0.9 {ratio} Normal 0.9-2.4 [facility] Comment on above: Performed By: #### L 500.4050, L100.0100, L501.3620 #### [facility] [address] [place], [address] ALK P 83 U/L Normal 45-117 [facility] Comment on above: Performed By: #### L 500.4050, L100.0100, L501.3620 #### [facility] [address] [place], [address] ALT [Catalytic activity/Vol] 21 U/L Normal 13-56 [facility] Comment on above: Performed By: #### L 500.4050, L100.0100, L501.3620 #### [facility] [address] [place], [address] AST [Catalytic activity/Vol] 25 U/L Normal 15-37 [facility] Comment on above: Performed By: #### L 500.4050, L100.0100, L501.3620 #### [facility] [address] [place], [address] Bilirubin [Mass/Vol] 0.70 mg/dL Normal 0.20-1.00 [facility] Comment on above: Result Comment: For patients on eltrombopag therapy, use of Dimension [place] TBIL is not recommended. Performed By: #### L 500.4050, L100.0100, L501.3620 #### [facility] [address] [place], [address] BUN/CRE 14.7 RATIO Normal 10-20 [facility] Comment on above: Performed By: #### L 500.4050, L100.0100, L501.3620 #### [facility] [address] [place], [address] CA,Total 8.7 mg/dL Normal 8.5-10.1 [facility] Comment on above: Performed By: #### L 500.4050, L100.0100, L501.3620 #### [facility] [address] [place], [address] Chloride [Moles/Vol] 101 mmol/L Normal 98-107 [facility] Comment on above: Performed By: #### L 500.4050, L100.0100, L501.3620 #### [facility] [address] [place], [address] CO2 [Moles/Vol] 27.0 mmol/L Normal 21.0-32.0 [facility] Comment on above: Performed By: #### L 500.4050, L100.0100, L501.3620 #### [facility] [address] [place], [address] Creatinine [Mass/Vol] 0.88 mg/dL Normal 0.55-1.02 [facility] Comment on above: Result Comment: The validity of the calculated GFR GFRAA in patients over 70 years has not been determined. Clinical correlation is essential. Performed By: #### L 500.4050, L100.0100, L501.3620 #### [facility] [address] [place], [address] EST GFR - AA 80 mL/min Normal >60 [facility] Comment on above: Result Comment: Afri can [place] GFR Calc Performed By: #### L 500.4050, L100.0100, [id number] #### [facility] [address] [place], [address] GAP 8 Normal 5-15 [facility] Comment on above: Performed By: #### L 500.4050, L100.0100, [id number] #### [facility] [address] [place], [address] GFR/1.73 sq M.predicted among non-blacks MDRD (S/P/Bld) [Vol rate/Area] 66 mL/min/{1.73_m2} Normal >60 [facility] Comment on above: Result Comment: Non- GFR Calc Performed By: #### L 500.4050, L100.0100, [id number] #### [facility] [address] [place], [address] Globulin (S) [Mass/Vol] 3.9 g/dL Normal 2.2-4.2 [facility] Comment on above: Performed By: #### L 500.4050, L100.0100, [id number] #### [facility] [address] [place], [address] Glucose [Mass/Vol] 96 mg/dL Normal 74-106 [facility] Comment on above: Performed By: #### L 500.4050, L100.0100, [id number] #### [facility] [address] [place], [address] Potassium [Moles/Vol] 3.8 mmol/L Normal 3.5-5.1 [facility] Comment on above: Performed By: #### L 500.4050, L100.0100, [id number] #### [facility] [address] [place], [address] Sodium [Moles/Vol] 136 mmol/L Normal 136-145 [facility] Comment on above: Performed By: #### L 500.4050, L100.0100, [id number] #### [facility] [address] [place], [address] T PROT 7.4 g/dL Normal 6.4-8.2 [facility] Comment on above: Performed By: #### L 500.4050, L100.0100, [id number] #### [facility] [address] [place], [address] Urea nitrogen [Mass/Vol] 13 mg/dL Normal 7-18 [facility] Comment on above: Performed By: #### L 500.4050, L100.0100, [id number] #### [facility] [address] [place], [address] Absolute lymphocyte countOrd ered By: Vernon Osman on 05-21-2023 Lymphocytes Auto (Unsp spec) [#/Vol] 1.08 10*3/uL 0.83-4.51 [facility] Automated lymphocyte count a s percentage of total leukocytesOrdered By: Vernon Osman on 05-21-2023 Lymphocytes/100 WBC Auto (Unsp spec) 8.5 % 19-41 [facility] Basophil percentageOrdered B y: Vernon Osman on 05-21-2023 Basophils/100 WBC (Bld) 0.6 % 0-1 [facility] Chloride [Moles/Vol] 112 mmol/L 98-107 [facility] Eosinophils/100 WBC (Bld) 2.0 % 0-5 [facility] Glucose [Mass/Vol] 136 mg/dL 74-106 [facility] Comment on above: Fasting Glucose resu lt greater than or equal to 126 mg/dL suggests DIABETES MELLITUS per A.D.A. criteria. Hemoglobin (Bld) [Mass/Vol] 10.3 g/dL 12.0-15.0 [facility] Monocytes/100 WBC (Bld) 9.4 % 0-10 [facility] Neutrophils (Bld) [#/Vol] 10.0 10*3/uL 2.0-7.7 [facility] Neutrophils/100 WBC (Bld) 79.0 % 47-70 [facility] Potassium [Moles/Vol] 3.4 mmol/L 3.5-5.1 [facility] Sodium [Moles/Vol] 142 mmol/L 136-145 [facility] WBC (Bld) [#/Vol] 12.7 10*3/uL 4.4-11.0 [facility] Determination of erythrocyte mean corpuscular volume (MCV)Ordered By: Vernon Osman on 05-21-2023 MCV (RBC) [Entitic vol] 99.1 fL 81-99 [facility] Erythrocyte distribution wid th ratioOrdered By: Vernon Osman on 05-21-2023 Erythrocyte distribution width (RBC) [Ratio] 15.1 % 11.6-14.6 [facility] Erythrocyte distribution wid th standard deviationOrdered By: Vernon Osman on 05-21-2023 Erythrocyte distribution width (RBC) [Entitic vol] 54.6 fL 35.1-43.9 [facility] Hematocrit Auto (Bld) [Volum e fraction]Ordered By: Vernon Osman on 05-21-2023 Hematocrit (Bld) [Volume fraction] 32.2 % 37-47 [facility] Immature granulocytes/100 WB C Auto (Bld)Ordered By: Vernon Osman on 05-21-2023 Immature granulocytes/100 WBC (Bld) 0.500 % 0.0-0.9 [facility] Comment on above: IG% - Immature Granu locytes (promyelocytes, myelocytes and metamyelocytes) > 1% indicates that a LEFT SHIFT is Present. Laboratory - Chemistry and C hemistry - challengeOrdered By: Vernon Osman on 05-21-2023 CO2 [Moles/Vol] 25.0 mmol/L 21.0-32.0 [facility] Urea nitrogen/Creatinine [Mass ratio] 9.1 mg/mg 10-20 [facility] - Hematology and Cell countsOrdered By: Vernon Osman on 05-21-2023 MCH (RBC) [Entitic mass] 31.7 pg 27.0-32.0 [facility] MCHC (RBC) [Mass/Vol] 32.0 g/dL 32-36 [facility] Nucleated RBC/100 WBC (Bld) [Ratio] 0 % 0-5 [facility] Platelets (Bld) [#/Vol] 218 10*3/uL 150-450 [facility] No Panel InformationOrdered By: Vernon sOman on 05-21-2023 Estimated Creatinine Clearance Calc 61.89 ml/min [facility] Estimated GFR (MDRD) Amer 94 mL/min >60 [facility] Comment on above: GFR Calc Estimated GFR (MDRD) Non-Af Amer 78 mL/min >60 [facility] Comment on above: Non- GFR Calc Platelet mean volume Cay[place]-Ec ker (Bld) [Entitic vol]Ordered By: Vernon Osman on 05-21-2023 Platelet mean volume (Bld) [Entitic vol] 11.8 fL 6.2-12.0 [facility] RBC Auto (Bld) [#/Vol]Ordere d By: Vernon Osman on 05-21-2023 RBC (Bld) [#/Vol] 3.25 10*6/uL 4.2-5.4 [facility] Serum or plasma calcium rajni urement (mass/volume)Ordered By: Vernon Osman on 05-21-2023 Calcium [Mass/Vol] 8.0 mg/dL 8.5-10.1 [facility] Serum or plasma creatinine m easurement (mass/volume)Ordered By: Vernon Osman on 05-21-2023 Creatinine [Mass/Vol] 0.77 mg/dL 0.55-1.02 [facility] Comment on above: The validity of the calculated GFR & GFRAA in patients over 70 years has not been determined. Clinical correlation is essential. Serum or plasma urea nitroge n measurement (mass/volume)Ordered By: Vernon Osman on 05-21-2023 Urea nitrogen [Mass/Vol] 7 mg/dL 7-18 [facility] Thin prep Papanicolaou smear with manual screeningOrdered By: Vernon Osman on 05-21-2023 Thin prep Papanicolaou smear with manual screening 5 5-15 [facility] Basophil percentageOrdered B y: Vernon Osman on 05-20-2023 Basophil percentage 3.2 mg/dL 2.5-4.9 [facility] Blood manual differential co mment interpretation (narrative result)Ordered By: Vernon Osman on 05-20-2023 Manual differential comment Donnie (Bld) [Interp] SCANNED [facility] Comment on above: MONOCYTOSIS PRESENT Laboratory - Chemistry and C hemistry - challengeOrdered By: Vernon Osman on 05-20-2023 Magnesium [Mass/Vol] 2.2 mg/dL 1.6-2.6 [facility] Review by pathologistOrdered By: Vernon Osman on 05-20-2023 Pathologist review Donnie (Unsp spec) [Interp] Reviewed [facility] Comment on above: Previous reported re sult: August july Edited by: RGOOD on 05/20/23:1306Neutrophilic leukocytosis.Macrocytic anemia.Clinical correlation necessary.Greg Guerin M.D. 05/20/23 AMENDED REPORT 05/20/23 1306 PATH REV previously reported as: August july Basophil percentageOrdered B y: Aggie Bolton on 05-19-2023 Bilirubin [Mass/Vol] 0.70 mg/dL 0.20-1.00 [facility] Comment on above: For patients on eltr ombopag therapy, use of Dimension [place] TBIL is not recommended. Protein [Mass/Vol] 6.4 g/dL 6.4-8.2 [facility] Basophil percentageOrdered B y: Jorge Cardona on 05-19-2023 Basophil percentage < 10.0 ug/mL 10.0-30.0 [facility] Culture, urineOrdered By: Sonja Cardona on 05-19-2023 Bacteria identified Cx Nom (U) Presumptive E. coli [facility] - Chemistry and C hemistry - challengeOrdered By: Aggie Bolton on 05-19-2023 Albumin/Globulin [Mass ratio] 0.7 {ratio} 0.9-2.4 [facility] ALP [Catalytic activity/Vol] 94 U/L 45-117 [facility] ALT [Catalytic activity/Vol] 15 U/L 13-56 [facility] Globulin (S) [Mass/Vol] 3.8 g/dL 2.2-4.2 [facility] No Panel InformationOrdered By: Jorge Cardona on 05-19-2023 Ethyl Alcohol Level < 3.0 mg/dL [facility] Comment on above: The serum:whole bloo d ethanol ratio is approximately 1.14and varies slightly with hematocrit. Medical Alcohol reference interval and critical value innon-tolerant individuals; 50 - 100 Impairment 100 Intoxication 100 - 250 Severe Poisoning 250 - 400 Deep/possible fatal coma No Panel InformationOrdered By: Aggie Bolton on 05-19-2023 Streptococcus pneumoniae Antigen (M [facility] Thin prep Papanicolaou smear with manual screeningOrdered By: Aggie Bolton on 05-19-2023 Thin prep Papanicolaou smear with manual screening 2.6 g/dL 3.2-5.0 [facility] Thin prep Papanicolaou smear with manual screening 19 U/L 15-37 [facility] Urine Legionella pneumophila antigen detectionOrdered By: Aggie Bolton on 05-19-2023 L. pneumophila Ag Ql (U) [facility] Absolute lymphocyte countOrd ered By: Jorgemel Cardona on 05-18-2023 Lymphocytes Auto (Unsp spec) [#/Vol] 0.96 10*3/uL 0.83-4.51 [facility] Activated partial thrombopla stin time (aPTT) in platelet poor plasma by coagulation aOrdered By: Jorgeeml Cardona on 05-18-2023 aPTT Coag (PPP) [Time] 30.3 s 24.1-36.2 [facility] Automated lymphocyte count a s percentage of total leukocytesOrdered By: Jorgemel Cardona on 05-18-2023 Lymphocytes/100 WBC Auto (Unsp spec) 6.3 % 19-41 [facility] Basophil percentageOrdered B y: Jorgemel Cardona on 05-18-2023 Basophil percentage >100 SEEN /hpf 0-5 [facility] Basophils/100 WBC (Bld) 0.5 % 0-1 [facility] Bilirubin [Mass/Vol] 1.40 mg/dL 0.20-1.00 [facility] Comment on above: For patients on eltr ombopag therapy, use of Dimension [place] TBIL is not recommended. Chloride [Moles/Vol] 109 mmol/L 98-107 [facility] Eosinophils/100 WBC (Bld) 0.3 % 0-5 [facility] Glucose [Mass/Vol] 134 mg/dL 74-106 [facility] Comment on above: Fasting Glucose resu lt greater than or equal to 126 mg/dL suggests DIABETES MELLITUS per A.D.A. criteria. Hemoglobin (Bld) [Mass/Vol] 11.9 g/dL 12.0-15.0 [facility] Lactate [Moles/Vol] 1.7 mmol/L 0.4-2.0 [facility] Monocytes/100 WBC (Bld) 2.4 % 0-10 [facility] Neutrophils (Bld) [#/Vol] 13.7 10*3/uL 2.0-7.7 [facility] Neutrophils/100 WBC (Bld) 89.8 % 47-70 [facility] Potassium [Moles/Vol] 3.8 mmol/L 3.5-5.1 [facility] Comment on above: Slight Hemolysis, Re sult may be falsely increased. Protein [Mass/Vol] 7.5 g/dL 6.4-8.2 [facility] Sodium [Moles/Vol] 139 mmol/L 136-145 [facility] WBC (Bld) [#/Vol] 15.2 10*3/uL 4.4-11.0 [facility] Bilirubin Test strip Ql (U)O rdered By: Jorge Cardona on 05-18-2023 Bilirubin Ql (U) Negative Negative [facility] Determination of erythrocyte mean corpuscular volume (MCV)Ordered By: Jorge Cardona on 05-18-2023 MCV (RBC) [Entitic vol] 97.9 fL 81-99 [facility] Erythrocyte distribution wid th ratioOrdered By: Jorgemel Cardona on 05-18-2023 Erythrocyte distribution width (RBC) [Ratio] 15.1 % 11.6-14.6 [facility] Erythrocyte distribution wid th standard deviationOrdered By: Jorgemel Cardona on 05-18-2023 Erythrocyte distribution width (RBC) [Entitic vol] 54.4 fL 35.1-43.9 [facility] Hematocrit Auto (Bld) [Volum e fraction]Ordered By: Jorgemel Cardona on 05-18-2023 Hematocrit (Bld) [Volume fraction] 36.7 % 37-47 [facility] Immature granulocytes/100 WB C Auto (Bld)Ordered By: Jorgemel Cardona on 05-18-2023 Immature granulocytes/100 WBC (Bld) 0.700 % 0.0-0.9 [facility] Comment on above: IG% - Immature Granu locytes (promyelocytes, myelocytes and metamyelocytes) > 1% indicates that a LEFT SHIFT is Present. International normalized rat io (INR) calculationOrdered By: Jorgemel Cardona on 05-18-2023 INR Coag (PPP) [Relative time] 1.3 {INR} [facility] Ketones Test strip Ql (U)Ord ered By: Jorge Cardona on 05-18-2023 Ketones Ql (U) 5 mg/dl Negative [facility] - Chemistry and C hemistry - challengeOrdered By: Jorgemel Cardona on 05-18-2023 Albumin/Globulin [Mass ratio] 0.7 {ratio} 0.9-2.4 [facility] ALP [Catalytic activity/Vol] 116 U/L 45-117 [facility] ALT [Catalytic activity/Vol] 17 U/L 13-56 [facility] CO2 [Moles/Vol] 24.0 mmol/L 21.0-32.0 [facility] Globulin (S) [Mass/Vol] 4.3 g/dL 2.2-4.2 [facility] Urea nitrogen/Creatinine [Mass ratio] 18.9 mg/mg 10-20 [facility] - CoagulationOrde red By: Jorge Cardona on 05-18-2023 PT Coag (PPP) [Time] 16.0 s 11.7-14.9 [facility] - Drug toxicology Ordered By: Jorge Cardona on 05-18-2023 Amphetamines Ql (U) Negative <1000 ng/mL [facility] Benzodiazepines Ql (U) Negative < 200 ng/mL [facility] Cannabinoids Screen Ql (U) Negative < 50 ng/mL [facility] Cocaine Ql (U) Negative < 300 ng/mL [facility] Opiates Ql (U) Positive < 300 ng/mL [facility] - Hematology and Cell countsOrdered By: Jorge Cardona on 05-18-2023 MCH (RBC) [Entitic mass] 31.7 pg 27.0-32.0 [facility] MCHC (RBC) [Mass/Vol] 32.4 g/dL 32-36 [facility] Nucleated RBC/100 WBC (Bld) [Ratio] 0 % 0-5 [facility] Platelets (Bld) [#/Vol] 199 10*3/uL 150-450 [facility] - Microbiology an d Antimicrobial susceptibilityOrdered By: Jorge Cardona on 05-18-2023 Bacteria identified Cx Nom (Bld) Escherichia coli [facility] SARS-CoV-2 (COVID-19) RNA LEONA+probe Ql (Unsp spec) [facility] Bacteria identified Cx Nom (Bld) No growth in 5 days. [facility] SARS-CoV-2 (COVID-19) RNA LEONA+probe Ql (Unsp spec) [facility] Mucus LM Ql (Urine sed)Order ed By: Jorge Cardona on 05-18-2023 Mucus Ql (Urine sed) 0 SEEN /hpf [facility] Nitrite Test strip Ql (U)Ord ered By: Jorge Cardona on 05-18-2023 Nitrite Ql (U) Positive Negative [facility] No Panel InformationOrdered By: Jorge Cardona on 05-18-2023 Estimated Creatinine Clearance Calc 40.12 ml/min [facility] Estimated GFR (MDRD) Amer 55 mL/min >60 [facility] Comment on above: GFR Calc Estimated GFR (MDRD) Non-Af Amer 46 mL/min >60 [facility] Comment on above: Non- GFR Calc MDMA (Ecstasy) Screen Negative < 500 ng/mL [facility] Urine Barbiturates Screen Negative < 200 ng/mL [facility] Urine Drug Screen Comment [facility] Comment on above: CONFIRMATORY TESTING FOR ALL [...] Methadone Screen Negative < 300 ng/mL [facility] Urine RBC 10-25 SEEN /hpf 0-5 [facility] Platelet mean volume Cayedn-Ec ker (Bld) [Entitic vol]Ordered By: Jorge Cardona on 05-18-2023 Platelet mean volume (Bld) [Entitic vol] 12.5 fL 6.2-12.0 [facility] Protein Test strip Ql (U)Ord ered By: Jorge Cardona on 05-18-2023 Protein Ql (U) 100 mg/dl Negative [facility] RBC Auto (Bld) [#/Vol]Ordere d By: Jorge Cardona on 05-18-2023 RBC (Bld) [#/Vol] 3.75 10*6/uL 4.2-5.4 [facility] Serum or plasma calcium rajni urement (mass/volume)Ordered By: Jorge Cardona on 05-18-2023 Calcium [Mass/Vol] 8.6 mg/dL 8.5-10.1 [facility] Serum or plasma creatinine m easurement (mass/volume)Ordered By: Jorge Cardona on 05-18-2023 Creatinine [Mass/Vol] 1.22 mg/dL 0.55-1.02 [facility] Comment on above: The validity of the calculated GFR & GFRAA in patients over 70 years has not been determined. Clinical correlation is essential. Serum or plasma urea nitroge n measurement (mass/volume)Ordered By: Jorge Cardona on 05-18-2023 Urea nitrogen [Mass/Vol] 23 mg/dL 7-18 [facility] Squamous epithelial cells de tection in urine sediment by light microscopyOrdered By: Jorge Cardona on 05-18-2023 Epithelial cells.squamous LM Ql (Urine sed) 0 SEEN /hpf 5-10 [facility] Thin prep Papanicolaou smear with manual screeningOrdered By: Jorge Cardona on 05-18-2023 Thin prep Papanicolaou smear with manual screening 3.2 g/dL 3.2-5.0 [facility] Thin prep Papanicolaou smear with manual screening 22 U/L 15-37 [facility] Comment on above: Slight Hemolysis, Re sult may be falsely increased. Thin prep Papanicolaou smear with manual screening 6 5-15 [facility] Urine blood detectionOrdered By: Jorge Cardona on 05-18-2023 RBC Ql (U) 50 /ul Negative [facility] Urine clarityOrdered By: Jorge Cardona on 05-18-2023 Clarity (U) Cloudy Clear [facility] Urine color determinationOrd ered By: Jorge Cardona on 05-18-2023 Color (U) Yellow Yellow [facility] Urine glucose detectionOrder ed By: Jorge Cardona on 05-18-2023 Glucose Ql (U) Normal mg/dl Normal [facility] Urine leukocyte esterase det ection by dipstickOrdered By: Jorge Cardona on 05-18-2023 Leukocyte esterase Test strip Ql (U) 500 /ul Negative [facility] Urine pHOrdered By: Jorge nguyen on 05-18-2023 pH (U) 6.0 [pH] 5.0 - 8.0 [facility] Urine phencyclidine (PCP) de tectionOrdered By: Jorge Cardona on 05-18-2023 Phencyclidine Ql (U) Negative < 25 ng/mL [facility] Urine sediment bacteria coun t by microscopy (number/high power field)Ordered By: Jorge Cardona on 05-18-2023 Bacteria LM.HPF (Urine sed) [#/Area] 0 /[HPF] None Seen [facility] Urine specific gravity measu rementOrdered By: Jorgemel Cardona on 05-18-2023 Specific gravity (U) [Rel density] 1.010 1.002-1.030 [facility] Urine urobilinogen measureme ntOrdered By: Jorgemel Cardona on 05-18-2023 Urobilinogen Ql (U) Normal mg/dl Normal [facility] Absolute lymphocyte countOrd ered By: Bandar Chanel on 11-23-2022 Lymphocytes Auto (Unsp spec) [#/Vol] 0.58 10*3/uL 0.83-4.51 [facility] Basophil percentageOrdered B y: Bandar Chanel on 11-23-2022 Basophils/100 WBC (Bld) 0.5 % 0-1 [facility] Chloride [Moles/Vol] 102 mmol/L 98-107 [facility] Eosinophils/100 WBC (Bld) 0.0 % 0-5 [facility] Glucose [Mass/Vol] 192 mg/dL 74-106 [facility] Comment on above: Fasting Glucose resu lt greater than or equal to 126 mg/dL suggests DIABETES MELLITUS per A.D.A. criteria. Neutrophils (Bld) [#/Vol] 6.0 10*3/uL 2.0-7.7 [facility] Neutrophils/100 WBC (Bld) 89.4 % 47-70 [facility] Potassium [Moles/Vol] 3.3 mmol/L 3.5-5.1 [facility] Sodium [Moles/Vol] 134 mmol/L 136-145 [facility] WBC (Bld) [#/Vol] 6.7 10*3/uL 4.4-11.0 [facility] Blood erythrocytes count (nu mber/volume)Ordered By: Bandar Chanle on 11-23-2022 RBC (Bld) [#/Vol] 4.22 10*6/uL 4.2-5.4 [facility] Blood hemoglobin measurement (mass/volume)Ordered By: Bandar Chanel on 11-23-2022 Hemoglobin (Bld) [Mass/Vol] 12.0 g/dL 12.0-15.0 [facility] Blood lymphocytes/100 leukoc ytesOrdered By: Bandar Chanel on 11-23-2022 Lymphocytes/100 WBC (Bld) 8.7 % 19-41 [facility] Blood manual differential co mment interpretation (narrative result)Ordered By: Bandar Chanel on 11-23-2022 Manual differential comment Donnie (Bld) [Interp] SCANNED [facility] Comment on above: LYMPHOPENIA PRESENT Blood monocytes/100 leukocyt esOrdered By: Bandar Chanel on 11-23-2022 Monocytes/100 WBC (Bld) 1.1 % 0-10 [facility] Blood platelet mean volumeOr dered By: Bandar Chanel on 11-23-2022 Platelet mean volume (Bld) [Entitic vol] 12.1 fL 6.2-12.0 [facility] CNPNon 11-23-2022 TABITHA Telephone ([facility]) AIDEN FIELDS ([id number]) 1945 F Date Time Provider Department [facility]/23[facility] During your visit today, we recorded the following information about you: Wu Gallegos APRN.FELY 11/23/2022 7:32 AM Signed Please notify that covid testing negative. Continue with plan of care as discussed during visit. Christie Cruz LPN 11/23/2022 7:53 AM Signed Phone call placed brief message to contact a nurse to review results. 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 Normal [facility] Determination of erythrocyte mean corpuscular volume (MCV)Ordered By: Bandar Chanel on 11-23-2022 MCV (RBC) [Entitic vol] 90.0 fL 81-99 [facility] Hematocrit Auto (Bld) [Volum e fraction]Ordered By: Bandar Chanel on 11-23-2022 Hematocrit (Bld) [Volume fraction] 38.0 % 37-47 [facility] - Chemistry and C hemistry - challengeOrdered By: Bandar Chanel on 11-23-2022 CO2 [Moles/Vol] 26.0 mmol/L 21.0-32.0 [facility] Free T4 [Mass/Vol] 1.40 ng/dL 0.76-1.46 [facility] Urea nitrogen/Creatinine [Mass ratio] 22.8 mg/mg 10-20 [facility] - Hematology and Cell countsOrdered By: Bandar Chanel on 11-23-2022 Erythrocyte distribution width (RBC) [Entitic vol] 54.4 fL 35.1-43.9 [facility] Erythrocyte distribution width (RBC) [Ratio] 16.4 % 11.6-14.6 [facility] Immature granulocytes/100 WBC (Bld) 0.300 % 0.0-0.9 [facility] Comment on above: IG% - Immature Granu locytes (promyelocytes, myelocytes and metamyelocytes) > 1% indicates that a LEFT SHIFT is Present. MCH (RBC) [Entitic mass] 28.4 pg 27.0-32.0 [facility] Nucleated RBC/100 WBC (Bld) [Ratio] 0 % 0-5 [facility] MCHC Auto (RBC) [Mass/Vol]Or dered By: Bandar Chanel on 11-23-2022 MCHC (RBC) [Mass/Vol] 31.6 g/dL 32-36 [facility] No Panel InformationOrdered By: Bandar Chanel on 11-23-2022 Estimated Creatinine Clearance Calc 44.80 ml/min [facility] Estimated GFR (MDRD) Amer 133 mL/min >60 [facility] Comment on above: GFR Calc Estimated GFR (MDRD) Non-Af Amer 110 mL/min >60 [facility] Comment on above: Non- GFR Calc Thyroid Stimulating Hormone (TSH) 0.24 uIU/mL 0.358-3.74 [facility] Platelets bldOrdered By: Anthony Chanel on 11-23-2022 Platelets (Bld) [#/Vol] 281 10*3/uL 150-450 [facility] Serum or plasma calcium rajni urement (mass/volume)Ordered By: Bandar Chanel on 11-23-2022 Calcium [Mass/Vol] 8.1 mg/dL 8.5-10.1 [facility] Serum or plasma creatinine m easurement (mass/volume)Ordered By: Bandar Chanel on 11-23-2022 Creatinine [Mass/Vol] 0.57 mg/dL 0.55-1.02 [facility] Comment on above: The validity of the calculated GFR & GFRAA in patients over 70 years has not been determined. Clinical correlation is essential. Serum or plasma urea nitroge n measurement (mass/volume)Ordered By: Bandar Chanel on 11-23-2022 Urea nitrogen [Mass/Vol] 13 mg/dL 7-18 [facility] Thin prep Papanicolaou smear with manual screeningOrdered By: Bandar Chanel on 11-23-2022 Thin prep Papanicolaou smear with manual screening 6 5-15 [facility] Absolute lymphocyte countOrd ered By: Katie Randle on 11-22-2022 Lymphocytes Auto (Unsp spec) [#/Vol] 1.44 10*3/uL 0.83-4.51 [facility] Basophil percentageOrdered B y: Katie Randle on 11-22-2022 Basophils/100 WBC (Bld) 0.7 % 0-1 [facility] Chloride [Moles/Vol] 102 mmol/L 98-107 [facility] Eosinophils/100 WBC (Bld) 6.7 % 0-5 [facility] Glucose [Mass/Vol] 82 mg/dL 74-106 [facility] Neutrophils (Bld) [#/Vol] 6.1 10*3/uL 2.0-7.7 [facility] Neutrophils/100 WBC (Bld) 64.5 % 47-70 [facility] Potassium [Moles/Vol] 4.1 mmol/L 3.5-5.1 [facility] Sodium [Moles/Vol] 137 mmol/L 136-145 [facility] WBC (Bld) [#/Vol] 9.4 10*3/uL 4.4-11.0 [facility] Blood erythrocytes count (nu mber/volume)Ordered By: Katie Randle on 11-22-2022 RBC (Bld) [#/Vol] 3.81 10*6/uL 4.2-5.4 [facility] Blood hemoglobin measurement (mass/volume)Ordered By: Katie Randle on 11-22-2022 Hemoglobin (Bld) [Mass/Vol] 11.0 g/dL 12.0-15.0 [facility] Blood lymphocytes/100 leukoc ytesOrdered By: Katie Randle on 11-22-2022 Lymphocytes/100 WBC (Bld) 15.4 % 19-41 [facility] Blood monocytes/100 leukocyt esOrdered By: Katie Randle on 11-22-2022 Monocytes/100 WBC (Bld) 12.3 % 0-10 [facility] Blood platelet mean volumeOr dered By: Katie Randle on 11-22-2022 Platelet mean volume (Bld) [Entitic vol] 11.8 fL 6.2-12.0 [facility] CNOVon 11-22-2022 CNOV Office Visit (UCWSTR ) AIDEN FIELDS ([id number]) 1945 F Date Time Provider Department 11/22/22 11:45 AM [facility] During your visit today, we recorded the following information about you: Temperature Pulse Respiration Blood pressure 99.6 degrees 85/minute 18/minute 110/64 Weight 68 kg Eliel Blount APRN.[employer] 11/22/2022 12:42 PM Signed Subjective HPI Nontoxic-appearing [...] - Alkylamine, Benadryl [Diphenhydramine Hcl], and Neosporin [Gbbawspr-Lbpadqdwza-Bi lymyxin] MEDICATIONS oxyCODONE IR (ROXICODONE) 5 mg [...] and azam (more content not included)... Normal [facility] COVID-19 virus antigen assay Ordered By: Katie Randle on 11-22-2022 SARS-CoV-2 (COVID-19) Ag IA.rapid Ql (Resp) [facility] Determination of erythrocyte mean corpuscular volume (MCV)Ordered By: Katie Randle on 11-22-2022 MCV (RBC) [Entitic vol] 92.1 fL 81-99 [facility] Hematocrit Auto (Bld) [Volum e fraction]Ordered By: Katie Randle on 11-22-2022 Hematocrit (Bld) [Volume fraction] 35.1 % 37-47 [facility] Laboratory - Chemistry and C hemistry - challengeOrdered By: Katie Randle on 11-22-2022 CO2 [Moles/Vol] 32.0 mmol/L 21.0-32.0 [facility] Natriuretic peptide B (Bld) [Mass/Vol] 198.9 pg/mL 0-100 [facility] Urea nitrogen/Creatinine [Mass ratio] 27.9 mg/mg 10-20 [facility] Laboratory - Hematology and Cell countsOrdered By: Katie Randle on 11-22-2022 Erythrocyte distribution width (RBC) [Entitic vol] 56.1 fL 35.1-43.9 [facility] Erythrocyte distribution width (RBC) [Ratio] 16.7 % 11.6-14.6 [facility] Immature granulocytes/100 WBC (Bld) 0.400 % 0.0-0.9 [facility] Comment on above: IG% - Immature Granu locytes (promyelocytes, myelocytes and metamyelocytes) > 1% indicates that a LEFT SHIFT is Present. MCH (RBC) [Entitic mass] 28.9 pg 27.0-32.0 [facility] Nucleated RBC/100 WBC (Bld) [Ratio] 0 % 0-5 [facility] MCHC Auto (RBC) [Mass/Vol]Or dered By: Katie Randle on 11-22-2022 MCHC (RBC) [Mass/Vol] 31.3 g/dL 32-36 [facility] No Panel InformationOrdered By: Katie Randle on 11-22-2022 Estimated Creatinine Clearance Calc 44.80 ml/min [facility] Estimated GFR (MDRD) Amer 132 mL/min >60 [facility] Comment on above: GFR Calc Estimated GFR (MDRD) Non-Af Amer 109 mL/min >60 [facility] Comment on above: Non- GFR Calc Troponin I High Sensitivity 7 pg/mL 3.0-54.0 [facility] Comment on above: Please Note: New [place] t Units and Gender Specific Reference Ranges. For more information see Policy Stat Procedure [place] High Sensitivity Troponin (TNIH) and attachments. Platelets bldOrdered By: Amy Randle on 11-22-2022 Platelets (Bld) [#/Vol] 247 10*3/uL 150-450 [facility] Respiratory pathogens DNA an d RNA panel LEONA+probe (Resp)Ordered By: Bandar Cahnel on 11-22-2022 Respiratory Panel (PCR) Rhinovirus [facility] SARS-CoV-2 RNA Resp Ql LEONA+p slimeon 11-22-2022 SARS-CoV-2 (COVID-19) RNA LEONA+probe Ql (Resp) COVID 19 RESULT: Not detected The method used is RT-PCR or an equivalent NAAT method. Reference Range (the expected result in uninfected individuals): Not detected Normal [facility] Comment on above: Performed By: #### [id number] #### [facility] CLIA [id number] [address] [place] [place] [address] [place] Serum or plasma calcium rajni urement (mass/volume)Ordered By: Katie Randle on 11-22-2022 Calcium [Mass/Vol] 8.3 mg/dL 8.5-10.1 [facility] Serum or plasma creatinine m easurement (mass/volume)Ordered By: Katie Randle on 11-22-2022 Creatinine [Mass/Vol] 0.57 mg/dL 0.55-1.02 [facility] Comment on above: The validity of the calculated GFR & GFRAA in patients over 70 years has not been determined. Clinical correlation is essential. Serum or plasma urea nitroge n measurement (mass/volume)Ordered By: Katie Randle on 11-22-2022 Urea nitrogen [Mass/Vol] 16 mg/dL 7-18 [facility] Thin prep Papanicolaou smear with manual screeningOrdered By: Katie Randle on 11-22-2022 Thin prep Papanicolaou smear with manual screening 3 5-15 [facility] XR CHEST 2V FRONTAL/LATon XR CHEST [...] thoracolumbar junction. IMPRESSION: No acute cardiopulmonary process. Bulk Fluids Handler: FILIBERTO Transcribe Date/Time: Nov 22 2022 12:17P Dictated by : SHEN ESQUIVEL MD This examination was interpreted and the report reviewed and electronically signed by: SHEN ESQUIVEL MD on Nov 22 2022 12:20PM EST [id number] Normal [facility] XR Chest PA and Lateralon IMPRESSION: No acute cardiopulmonary process. Bulk Fluids Handler: [facility] Transcribe Date/Time: Nov 22 2022 12:17P Dictated by : SHEN EQSUIVEL MD This examination was interpreted and the report reviewed and electronically signed by: SHEN ESQUIVEL MD on Nov 22 2022 12:20PM [facility] DIVISION OF RADIOLOGY * * *Final Report* [...] the thoracolumbar junction. DIVISION OF RADIOLOGY Provider, Yessenia Isidro Warren - 11/22/2022 * * *Final Report* * [...] junction. IMPRESSION IMPRESSION: No acute cardiopulmonary process. Bulk Fluids Handler: FILIBERTO Transcribe Date/Time: Nov 22 2022 12:17P Dictated by : SHEN ESQUIVEL MD This examination was interpreted and the report reviewed and electronically signed by: SHEN ESQUIVEL MD on Nov 22 2022 12:20PM [facility] Radiology Study observation (narrative) Lakisha mckenna [facility] XR Chest PA and LateralOrder ed By: [facility] Provider on 11-22-2022 [facility] Laboratory - Chemistry and C hemistry - challengeOrdered By: Erica Richardson on 11-14-2022 Free T4 [Mass/Vol] 1.35 ng/dL 0.76-1.46 [facility] No Panel InformationOrdered By: Erica Richardson on 11-14-2022 Free Triiodothyronine (T3) pg/dL 2.2 pg/mL 2.18-3.98 [facility] Thyroid Stimulating Hormone (TSH) 0.75 uIU/mL 0.358-3.74 [facility] Absolute lymphocyte countOrd ered By: Dr. Richardson on 09-13-2022 Lymphocytes Auto (Unsp spec) [#/Vol] 1.36 10*3/uL 0.83-4.51 [facility] Basophil percentageOrdered B y: Dr. Richardson on 09-13-2022 Basophils/100 WBC (Bld) 1.0 % 0-1 [facility] Bilirubin [Mass/Vol] 0.50 mg/dL 0.20-1.00 [facility] Comment on above: For patients on eltr ombopag therapy, use of Dimension [place] TBIL is not recommended. Chloride [Moles/Vol] 101 mmol/L 98-107 [facility] Eosinophils/100 WBC (Bld) 5.7 % 0-5 [facility] Glucose [Mass/Vol] 94 mg/dL 74-106 [facility] Neutrophils (Bld) [#/Vol] 7.2 10*3/uL 2.0-7.7 [facility] Neutrophils/100 WBC (Bld) 70.2 % 47-70 [facility] Potassium [Moles/Vol] 4.4 mmol/L 3.5-5.1 [facility] Protein [Mass/Vol] 8.0 g/dL 6.4-8.2 [facility] Sodium [Moles/Vol] 137 mmol/L 136-145 [facility] WBC (Bld) [#/Vol] 10.3 10*3/uL 4.4-11.0 [facility] Blood erythrocytes count (nu mber/volume)Ordered By: Dr. Richardson on 09-13-2022 RBC (Bld) [#/Vol] 3.92 10*6/uL 4.2-5.4 [facility] Blood hemoglobin measurement (mass/volume)Ordered By: Dr. Richardson on 09-13-2022 Hemoglobin (Bld) [Mass/Vol] 12.5 g/dL 12.0-15.0 [facility] Blood lymphocytes/100 leukoc ytesOrdered By: Dr. Richardson on 09-13-2022 Lymphocytes/100 WBC (Bld) 13.2 % 19-41 [facility] Blood monocytes/100 leukocyt esOrdered By: Dr. Richardson on 09-13-2022 Monocytes/100 WBC (Bld) 9.5 % 0-10 [facility] Blood platelet mean volumeOr dered By: Dr. Richardson on 09-13-2022 Platelet mean volume (Bld) [Entitic vol] 11.6 fL 6.2-12.0 [facility] Determination of erythrocyte mean corpuscular volume (MCV)Ordered By: Dr. Richardson on 09-13-2022 MCV (RBC) [Entitic vol] 100.5 fL 81-99 [facility] Hematocrit Auto (Bld) [Volum e fraction]Ordered By: Dr. Richardson on 09-13-2022 Hematocrit (Bld) [Volume fraction] 39.4 % 37-47 [facility] Laboratory - Chemistry and C hemistry - challengeOrdered By: Dr. Richardson on 09-13-2022 ALP [Catalytic activity/Vol] 136 U/L 45-117 [facility] ALT [Catalytic activity/Vol] 23 U/L 13-56 [facility] CO2 [Moles/Vol] 28.0 mmol/L 21.0-32.0 [facility] Free T4 [Mass/Vol] 1.06 ng/dL 0.76-1.46 [facility] Globulin (S) [Mass/Vol] 4.2 g/dL 2.2-4.2 [facility] Urea nitrogen/Creatinine [Mass ratio] 32.9 mg/mg 10-20 [facility] Laboratory - Hematology and Cell countsOrdered By: Dr. Richardson on 09-13-2022 Erythrocyte distribution width (RBC) [Entitic vol] 48.6 fL 35.1-43.9 [facility] Erythrocyte distribution width (RBC) [Ratio] 13.1 % 11.6-14.6 [facility] Immature granulocytes/100 WBC (Bld) 0.400 % 0.0-0.9 [facility] Comment on above: IG% - Immature Granu locytes (promyelocytes, myelocytes and metamyelocytes) > 1% indicates that a LEFT SHIFT is Present. MCH (RBC) [Entitic mass] 31.9 pg 27.0-32.0 [facility] Nucleated RBC/100 WBC (Bld) [Ratio] 0 % 0-5 [facility] ([facility] [Mass/Vol]Or dered By: Dr. Richardson on 09-13-2022 MCHC (RBC) [Mass/Vol] 31.7 g/dL 32-36 [facility] No Panel InformationOrdered By: Dr. Richardson on 09-13-2022 Estimated GFR (MDRD) Amer 111 mL/min >60 [facility] Comment on above: GFR Calc Estimated GFR (MDRD) Non-Af Amer 91 mL/min >60 [facility] Comment on above: Non- GFR Calc Free Triiodothyronine (T3) pg/dL 1.4 pg/mL 2.18-3.98 [facility] Thyroid Stimulating Hormone (TSH) 6.44 uIU/mL 0.358-3.74 [facility] Platelets bldOrdered By: Dr. Richardson on 09-13-2022 Platelets (Bld) [#/Vol] 335 10*3/uL 150-450 [facility] Serum or plasma albumin rajni urement (mass/volume)Ordered By: Dr. Richardson on 09-13-2022 Albumin [Mass/Vol] 3.8 g/dL 3.2-5.0 [facility] Serum or plasma albumin/glob ulin mass ratioOrdered By: Dr. Richardson on 09-13-2022 Albumin/Globulin [Mass ratio] 0.9 {ratio} 0.9-2.4 [facility] Serum or plasma calcium rajni urement (mass/volume)Ordered By: Dr. Richardson on 09-13-2022 Calcium [Mass/Vol] 8.3 mg/dL 8.5-10.1 [facility] Serum or plasma creatinine m easurement (mass/volume)Ordered By: Dr. Richardson on 09-13-2022 Creatinine [Mass/Vol] 0.67 mg/dL 0.55-1.02 [facility] Comment on above: The validity of the calculated GFR & GFRAA in patients over 70 years has not been determined. Clinical correlation is essential. Serum or plasma urea nitroge n measurement (mass/volume)Ordered By: Dr. Richardson on 09-13-2022 Urea nitrogen [Mass/Vol] 22 mg/dL 7-18 [facility] Serum or plasma uric acid me asurement (mass/volume)Ordered By: Dr. Richardson on 09-13-2022 Urate [Mass/Vol] 3.6 mg/dL 2.6-6.0 [facility] Comment on above: The drugs N-Acetylcy steine and Metamizole may falsely depress this assay. Thin prep Papanicolaou smear with manual screeningOrdered By: Dr. Richardson on 09-13-2022 Thin prep Papanicolaou smear with manual screening 20 U/L 15-37 [facility] Thin prep Papanicolaou smear with manual screening 8 5-15 [facility] Basophil percentageOrdered B y: Roberto Andre on 03-06-2022 Chloride [Moles/Vol] 102 mmol/L 98-107 [facility] Glucose [Mass/Vol] 90 mg/dL 74-106 [facility] Potassium [Moles/Vol] 4.0 mmol/L 3.5-5.1 [facility] Sodium [Moles/Vol] 137 mmol/L 136-145 [facility] WBC (Bld) [#/Vol] 5.7 10*3/uL 4.4-11.0 [facility] Blood erythrocytes count (nu mber/volume)Ordered By: Roberto Andre on 03-06-2022 RBC (Bld) [#/Vol] 4.05 10*6/uL 4.2-5.4 [facility] Blood hemoglobin measurement (mass/volume)Ordered By: Roberto Andre on 03-06-2022 Hemoglobin (Bld) [Mass/Vol] 12.0 g/dL 12.0-15.0 [facility] Blood platelet mean volumeOr dered By: Roberto Andre on 03-06-2022 Platelet mean volume (Bld) [Entitic vol] 12.7 fL 6.2-12.0 [facility] Determination of erythrocyte mean corpuscular volume (MCV)Ordered By: Roberto Andre on 03-06-2022 MCV (RBC) [Entitic vol] 91.9 fL 81-99 [facility] Hematocrit Auto (Bld) [Volum e fraction]Ordered By: Roberto Andre on 03-06-2022 Hematocrit (Bld) [Volume fraction] 37.2 % 37-47 [facility] Laboratory - Chemistry and C hemistry - challengeOrdered By: Roberto Andre on 03-06-2022 CO2 [Moles/Vol] 28.0 mmol/L 21.0-32.0 [facility] Urea nitrogen/Creatinine [Mass ratio] 15.9 mg/mg 10-20 [facility] Laboratory - Hematology and Cell countsOrdered By: Roberto Andre on 03-06-2022 Erythrocyte distribution width (RBC) [Entitic vol] 59.7 fL 35.1-43.9 [facility] Erythrocyte distribution width (RBC) [Ratio] 17.7 % 11.6-14.6 [facility] MCH (RBC) [Entitic mass] 29.6 pg 27.0-32.0 [facility] MCHC Auto (RBC) [Mass/Vol]Or dered By: Roberto Andre on 03-06-2022 MCHC (RBC) [Mass/Vol] 32.3 g/dL 32-36 [facility] No Panel InformationOrdered By: Roberto Andre on 03-06-2022 Estimated GFR (MDRD) Amer 134 mL/min >60 [facility] Comment on above: GFR Calc Estimated GFR (MDRD) Non-Af Amer 111 mL/min >60 [facility] Comment on above: Non- GFR Calc Platelets bldOrdered By: Wan Andre on 03-06-2022 Platelets (Bld) [#/Vol] 272 10*3/uL 150-450 [facility] Serum or plasma calcium rajni urement (mass/volume)Ordered By: Roberto Andre on 03-06-2022 Calcium [Mass/Vol] 9.0 mg/dL 8.5-10.1 [facility] Serum or plasma creatinine m easurement (mass/volume)Ordered By: Roberto Andre on 03-06-2022 Creatinine [Mass/Vol] 0.57 mg/dL 0.55-1.02 [facility] Comment on above: The validity of the calculated GFR & GFRAA in patients over 70 years has not been determined. Clinical correlation is essential. Serum or plasma urea nitroge n measurement (mass/volume)Ordered By: Roberto Andre on 03-06-2022 Urea nitrogen [Mass/Vol] 9 mg/dL 7-18 [facility] Thin prep Papanicolaou smear with manual screeningOrdered By: Roberto Andre on 03-06-2022 Thin prep Papanicolaou smear with manual screening 7 5-15 [facility] Basophil percentageOrdered B y: Roberto Andre on 02-27-2022 Chloride [Moles/Vol] 106 mmol/L 98-107 [facility] Glucose [Mass/Vol] 91 mg/dL 74-106 [facility] Potassium [Moles/Vol] 4.1 mmol/L 3.5-5.1 [facility] Sodium [Moles/Vol] 139 mmol/L 136-145 [facility] WBC (Bld) [#/Vol] 6.6 10*3/uL 4.4-11.0 [facility] Blood erythrocytes count (nu mber/volume)Ordered By: Roberto Andre on 02-27-2022 RBC (Bld) [#/Vol] 3.93 10*6/uL 4.2-5.4 [facility] Blood hemoglobin measurement (mass/volume)Ordered By: Roberto Andre on 02-27-2022 Hemoglobin (Bld) [Mass/Vol] 11.6 g/dL 12.0-15.0 [facility] Blood platelet mean volumeOr dered By: Roberto Andre on 02-27-2022 Platelet mean volume (Bld) [Entitic vol] 12.8 fL 6.2-12.0 [facility] Determination of erythrocyte mean corpuscular volume (MCV)Ordered By: Roberto Andre on 02-27-2022 MCV (RBC) [Entitic vol] 90.6 fL 81-99 [facility] Hematocrit Auto (Bld) [Volum e fraction]Ordered By: Roberto Andre on 02-27-2022 Hematocrit (Bld) [Volume fraction] 35.6 % 37-47 [facility] Laboratory - Chemistry and C hemistry - challengeOrdered By: Roberto Andre on 02-27-2022 CO2 [Moles/Vol] 28.0 mmol/L 21.0-32.0 [facility] Urea nitrogen/Creatinine [Mass ratio] 29.4 mg/mg 10-20 [facility] - Hematology and Cell countsOrdered By: Roberto Andre on 02-27-2022 Erythrocyte distribution width (RBC) [Entitic vol] 63.4 fL 35.1-43.9 [facility] Erythrocyte distribution width (RBC) [Ratio] 19.1 % 11.6-14.6 [facility] MCH (RBC) [Entitic mass] 29.5 pg 27.0-32.0 [facility] MCHC Auto (RBC) [Mass/Vol]Or dered By: Roberto Andre on 02-27-2022 MCHC (RBC) [Mass/Vol] 32.6 g/dL 32-36 [facility] No Panel InformationOrdered By: Roberto Andre on 02-27-2022 Estimated GFR (MDRD) Amer 131 mL/min >60 [facility] Comment on above: GFR Calc Estimated GFR (MDRD) Non-Af Amer 108 mL/min >60 [facility] Comment on above: Non- GFR Calc Platelets bldOrdered By: Wan Andre on 02-27-2022 Platelets (Bld) [#/Vol] 275 10*3/uL 150-450 [facility] Serum or plasma calcium rajni urement (mass/volume)Ordered By: Roberto Andre on 02-27-2022 Calcium [Mass/Vol] 9.1 mg/dL 8.5-10.1 [facility] Serum or plasma creatinine m easurement (mass/volume)Ordered By: Roberto Andre on 02-27-2022 Creatinine [Mass/Vol] 0.58 mg/dL 0.55-1.02 [facility] Comment on above: The validity of the calculated GFR & GFRAA in patients over 70 years has not been determined. Clinical correlation is essential. Serum or plasma urea nitroge n measurement (mass/volume)Ordered By: Roberto Andre on 02-27-2022 Urea nitrogen [Mass/Vol] 17 mg/dL 7-18 [facility] Thin prep Papanicolaou smear with manual screeningOrdered By: Roberto Andre on 02-27-2022 Thin prep Papanicolaou smear with manual screening 5 5-15 [facility] Basophil percentageOrdered B y: Roberto Andre on 02-20-2022 Chloride [Moles/Vol] 100 mmol/L 98-107 [facility] Glucose [Mass/Vol] 89 mg/dL 74-106 [facility] Potassium [Moles/Vol] 3.9 mmol/L 3.5-5.1 [facility] Sodium [Moles/Vol] 136 mmol/L 136-145 [facility] WBC (Bld) [#/Vol] 6.6 10*3/uL 4.4-11.0 [facility] Blood erythrocytes count (nu mber/volume)Ordered By: Roberto Andre on 02-20-2022 RBC (Bld) [#/Vol] 4.21 10*6/uL 4.2-5.4 [facility] Blood hemoglobin measurement (mass/volume)Ordered By: Roberto Andre on 02-20-2022 Hemoglobin (Bld) [Mass/Vol] 12.3 g/dL 12.0-15.0 [facility] Blood manual differential co mment interpretation (narrative result)Ordered By: Roberto Andre on 02-20-2022 Manual differential comment Donnie (Bld) [Interp] See comment [facility] Comment on above: 1+ ANISOCYTOSIS Blood platelet mean volumeOr dered By: Roberto Andre on 02-20-2022 Platelet mean volume (Bld) [Entitic vol] 11.7 fL 6.2-12.0 [facility] Determination of erythrocyte mean corpuscular volume (MCV)Ordered By: Roberto Andre on 02-20-2022 MCV (RBC) [Entitic vol] 91.0 fL 81-99 [facility] Hematocrit Auto (Bld) [Volum e fraction]Ordered By: Roberto Andre on 02-20-2022 Hematocrit (Bld) [Volume fraction] 38.3 % 37-47 [facility] Laboratory - Chemistry and C hemistry - challengeOrdered By: Roberto Andre on 02-20-2022 CO2 [Moles/Vol] 29.0 mmol/L 21.0-32.0 [facility] Urea nitrogen/Creatinine [Mass ratio] 20.7 mg/mg 10-20 [facility] - Hematology and Cell countsOrdered By: Roberto Andre on 02-20-2022 Erythrocyte distribution width (RBC) [Entitic vol] 66.1 fL 35.1-43.9 [facility] Erythrocyte distribution width (RBC) [Ratio] 19.8 % 11.6-14.6 [facility] MCH (RBC) [Entitic mass] 29.2 pg 27.0-32.0 [facility] MCHC Auto (RBC) [Mass/Vol]Or dered By: Roberto Andre on 02-20-2022 MCHC (RBC) [Mass/Vol] 32.1 g/dL 32-36 [facility] No Panel InformationOrdered By: Roberto Andre on 02-20-2022 Estimated GFR (MDRD) Amer 182 mL/min >60 [facility] Comment on above: GFR Calc Estimated GFR (MDRD) Non-Af Amer 150 mL/min >60 [facility] Comment on above: Non- GFR Calc Platelets bldOrdered By: Wan Andre on 02-20-2022 Platelets (Bld) [#/Vol] 325 10*3/uL 150-450 [facility] Serum or plasma calcium rajni urement (mass/volume)Ordered By: Roberto Andre on 02-20-2022 Calcium [Mass/Vol] 9.3 mg/dL 8.5-10.1 [facility] Serum or plasma creatinine m easurement (mass/volume)Ordered By: Roberto Andre on 02-20-2022 Creatinine [Mass/Vol] 0.44 mg/dL 0.55-1.02 [facility] Comment on above: The validity of the calculated GFR & GFRAA in patients over 70 years has not been determined. Clinical correlation is essential. Serum or plasma urea nitroge n measurement (mass/volume)Ordered By: Roberto Andre on 02-20-2022 Urea nitrogen [Mass/Vol] 9 mg/dL 7-18 [facility] Thin prep Papanicolaou smear with manual screeningOrdered By: Roberto Andre on 02-20-2022 Thin prep Papanicolaou smear with manual screening 7 5-15 [facility] Basophil percentageon 2021 Chloride [Moles/Vol] 106 mmol/L 98-107 [facility] Work Phone: Glucose [Mass/Vol] 78 mg/dL 74-106 [facility] Work Phone: Potassium [Moles/Vol] 3.8 mmol/L 3.5-5.1 [facility] Work Phone: Sodium [Moles/Vol] 140 mmol/L 136-145 [facility] Work Phone: WBC (Bld) [#/Vol] 5.2 10*3/uL 4.4-11.0 [facility] [facility] Work Phone: [phone] Blood erythrocytes count (nu mber/volume)on 02-13-2022 RBC (Bld) [#/Vol] 3.68 10*6/uL 4.2-5.4 [facility] [place] Work Phone: [phone] Blood hemoglobin measurement (mass/volume)on 02-13-2022 Hemoglobin (Bld) [Mass/Vol] 10.7 g/dL 12.0-15.0 [facility] Work Phone: [phone] Blood platelet mean volumeon 02-13-2022 Platelet mean volume (Bld) [Entitic vol] 12.6 fL 6.2-12.0 [facility] Work Phone: [phone] Determination of erythrocyte mean corpuscular volume (MCV)on 02-13-2022 MCV (RBC) [Entitic vol] 90.5 fL 81-99 [facility] Work Phone: [phone] Hematocrit Auto (Bld) [Volum e fraction]on 02-13-2022 Hematocrit (Bld) [Volume fraction] 33.3 % 37-47 [facility] Work Phone: [phone] Laboratory - Chemistry and C hemistry - challengeon 02-13-2022 CO2 [Moles/Vol] 32.0 mmol/L 21.0-32.0 [facility] Work Phone: [phone] Urea nitrogen/Creatinine [Mass ratio] 28.9 mg/mg 10- [facility] Work Phone: [phone] Laboratory - Hematology and Cell countson 02-13-2022 Erythrocyte distribution width (RBC) [Entitic vol] 67.1 fL 35.1-43.9 [facility] Work Phone: [phone] Erythrocyte distribution width (RBC) [Ratio] 20.0 % 11.6-14.6 [facility] Work Phone: [phone] MCH (RBC) [Entitic mass] 29.1 pg 27.0-32.0 [facility] Work Phone: MCHC Auto (RBC) [Mass/Vol]on 02-13-2022 MCHC (RBC) [Mass/Vol] 32.1 g/dL 32-36 [facility] Work Phone: No Panel Informationon 02-13 Estimated GFR (MDRD) Amer 175 mL/min >60 [facility] Work Phone: Comment on above: GFR Calc Estimated GFR (MDRD) Non-Af Amer 144 mL/min >60 [facility] Work Phone: Comment on above: Non- GFR Calc Platelets bldon 02-13-2022 Platelets (Bld) [#/Vol] 258 10*3/uL 150-450 [facility] Work Phone: Serum or plasma calcium rajni urement (mass/volume)on 02-13-2022 Calcium [Mass/Vol] 9.1 mg/dL 8.5-10.1 [facility] Work Phone: Serum or plasma creatinine m easurement (mass/volume)on 02-13-2022 Creatinine [Mass/Vol] 0.45 mg/dL 0.55-1.02 [facility] Work Phone: Comment on above: The validity of the calculated GFR & GFRAA in patients over 70 years has not been determined. Clinical correlation is essential. Serum or plasma urea nitroge n measurement (mass/volume)on 02-13-2022 Urea nitrogen [Mass/Vol] 13 mg/dL 7-18 [facility] Work Phone: Thin prep Papanicolaou smear with manual screeningon 02-13-2022 Thin prep Papanicolaou smear with manual screening 2 5-15 [facility] Work Phone: [phone] Basophil percentageon 2021 Chloride [Moles/Vol] 105 mmol/L 98-107 [facility] Work Phone: Glucose [Mass/Vol] 80 mg/dL 74-106 [facility] Work Phone: [phone] Potassium [Moles/Vol] 3.8 mmol/L 3.5-5.1 [facility] Work Phone: Sodium [Moles/Vol] 141 mmol/L 136-145 [facility] Work Phone: [phone] WBC (Bld) [#/Vol] 5.6 10*3/uL 4.4-11.0 [facility] Work Phone: [phone] Blood erythrocytes count (nu mber/volume)on 02-06-2022 RBC (Bld) [#/Vol] 3.76 10*6/uL 4.2-5.4 [facility] [place] Work Phone: [phone] Blood hemoglobin measurement (mass/volume)on 02-06-2022 Hemoglobin (Bld) [Mass/Vol] 10.6 g/dL 12.0-15.0 [facility] Work Phone: Blood manual differential co mment interpretation (narrative result)on 02-06-2022 Manual differential comment Donnie (Bld) [Interp] COMMENT [facility] Work Phone: Comment on above: 1+ ANISO. Blood platelet mean volumeon 02-06-2022 Platelet mean volume (Bld) [Entitic vol] 12.8 fL 6.2-12.0 [facility] Work Phone: [phone] Determination of erythrocyte mean corpuscular volume (MCV)on 02-06-2022 MCV (RBC) [Entitic vol] 89.6 fL 81-99 [facility] Work Phone: [phone] Hematocrit Auto (Bld) [Volum e fraction]on 02-06-2022 Hematocrit (Bld) [Volume fraction] 33.7 % 37-47 [facility] Work Phone: [phone] Laboratory - Chemistry and C hemistry - challengeon 02-06-2022 CO2 [Moles/Vol] 28.0 mmol/L 21.0-32.0 [facility] Work Phone: [phone] Urea nitrogen/Creatinine [Mass ratio] 32.7 mg/mg 10-20 [facility] Work Phone: Laboratory - Hematology and Cell countson 02-06-2022 Erythrocyte distribution width (RBC) [Entitic vol] 66.9 fL 35.1-43.9 [facility] Work Phone: [phone] Erythrocyte distribution width (RBC) [Ratio] 20.2 % 11.6-14.6 [facility] Work Phone: MCH (RBC) [Entitic mass] 28.2 pg 27.0-32.0 [facility] Work Phone: [phone] MCHC Auto (RBC) [Mass/Vol]on 02-06-2022 MCHC (RBC) [Mass/Vol] 31.5 g/dL 32-36 [facility] Work Phone: No Panel Informationon 02-06 Estimated GFR (MDRD) Amer 158 mL/min >60 [facility] Work Phone: Comment on above: GFR Calc Estimated GFR (MDRD) Non-Af Amer 131 mL/min >60 [facility] Work Phone: Comment on above: Non- GFR Calc Platelets bldon 02-06-2022 Platelets (Bld) [#/Vol] 236 10*3/uL 150-450 [facility] Work Phone: [phone] Serum or plasma calcium rajni urement (mass/volume)on 02-06-2022 Calcium [Mass/Vol] 9.0 mg/dL 8.5-10.1 [facility] Work Phone: [phone] Serum or plasma creatinine m easurement (mass/volume)on 02-06-2022 Creatinine [Mass/Vol] 0.49 mg/dL 0.55-1.02 [facility] Work Phone: Comment on above: The validity of the calculated GFR & GFRAA in patients over 70 years has not been determined. Clinical correlation is essential. Serum or plasma urea nitroge n measurement (mass/volume)on 02-06-2022 Urea nitrogen [Mass/Vol] 16 mg/dL - [facility] Work Phone: [phone] Thin prep Papanicolaou smear with manual screeningon 02-06-2022 Thin prep Papanicolaou smear with manual screening 8 5-15 [facility] Work Phone: Basophil percentageon 2021 Chloride [Moles/Vol] 104 mmol/L 98-107 [facility] Work Phone: Glucose [Mass/Vol] 83 mg/dL 74-106 [facility] Work Phone: Potassium [Moles/Vol] 3.9 mmol/L 3.5-5.1 [facility] Work Phone: [phone] Sodium [Moles/Vol] 139 mmol/L 136-145 [facility] Work Phone: WBC (Bld) [#/Vol] 7.0 10*3/uL 4.4-11.0 [facility] Work Phone: Blood erythrocytes count (nu mber/volume)on 01-30-2022 RBC (Bld) [#/Vol] 4.34 10*6/uL 4.2-5.4 [facility] Work Phone: Blood hemoglobin measurement (mass/volume)on 01-30-2022 Hemoglobin (Bld) [Mass/Vol] 12.0 g/dL 12.0-15.0 [facility] Work Phone: Blood platelet mean volumeon 01-30-2022 Platelet mean volume (Bld) [Entitic vol] 13.4 fL 6.2-12.0 [facility] Work Phone: Determination of erythrocyte mean corpuscular volume (MCV)on 01-30-2022 MCV (RBC) [Entitic vol] 90.1 fL 81-99 [facility] Work Phone: Hematocrit Auto (Bld) [Volum e fraction]on 01-30-2022 Hematocrit (Bld) [Volume fraction] 39.1 % 37-47 [facility] Work Phone: Laboratory - Chemistry and C hemistry - challengeon 01-30-2022 CO2 [Moles/Vol] 28.0 mmol/L 21.0-32.0 [facility] Work Phone: Urea nitrogen/Creatinine [Mass ratio] 17.5 mg/mg 10-20 [facility] Work Phone: [phone] Laboratory - Hematology and Cell countson 01-30-2022 Erythrocyte distribution width (RBC) [Entitic vol] 66.9 fL 35.1-43.9 [facility] Work Phone: [phone] Erythrocyte distribution width (RBC) [Ratio] 20.3 % 11.6-14.6 [facility] Work Phone: [phone] MCH (RBC) [Entitic mass] 27.6 pg 27.0-32.0 [facility] Work Phone: [phone] MCHC Auto (RBC) [Mass/Vol]on 01-30-2022 MCHC (RBC) [Mass/Vol] 30.7 g/dL 32-36 [facility] Work Phone: No Panel Informationon 01-30 Estimated GFR (MDRD) Amer 133 mL/min >60 [facility] Work Phone: Comment on above: GFR Calc Estimated GFR (MDRD) Non-Af Amer 110 mL/min >60 [facility] Work Phone: Comment on above: Non- GFR Calc Platelets bldon 01-30-2022 Platelets (Bld) [#/Vol] 249 10*3/uL 150-450 [facility] Work Phone: [phone] Serum or plasma calcium rajni urement (mass/volume)on 01-30-2022 Calcium [Mass/Vol] 8.9 mg/dL 8.5-10.1 [facility] Work Phone: [phone] Serum or plasma creatinine m easurement (mass/volume)on 01-30-2022 Creatinine [Mass/Vol] 0.57 mg/dL 0.55-1.02 [facility] Work Phone: Comment on above: The validity of the calculated GFR & GFRAA in patients over 70 years has not been determined. Clinical correlation is essential. Serum or plasma urea nitroge n measurement (mass/volume)on 01-30-2022 Urea nitrogen [Mass/Vol] 10 mg/dL 7-18 [facility] Work Phone: Thin prep Papanicolaou smear with manual screeningon 01-30-2022 Thin prep Papanicolaou smear with manual screening 7 5-15 [facility] Work Phone: Basophil percentageon 2021 Chloride [Moles/Vol] 106 mmol/L 98-107 [facility] Work Phone: Glucose [Mass/Vol] 92 mg/dL 74-106 [facility] Work Phone: [phone] Potassium [Moles/Vol] 3.2 mmol/L 3.5-5.1 [facility] Work Phone: [phone] Sodium [Moles/Vol] 142 mmol/L 136-145 [facility] Work Phone: [phone] WBC (Bld) [#/Vol] 7.6 10*3/uL 4.4-11.0 [facility] Work Phone: [phone] Blood erythrocytes count (nu mber/volume)on 01-22-2022 RBC (Bld) [#/Vol] 4.15 10*6/uL 4.2-5.4 [facility] [place] Work Phone: Blood hemoglobin measurement (mass/volume)on 01-22-2022 Hemoglobin (Bld) [Mass/Vol] 11.4 g/dL 12.0-15.0 [facility] Work Phone: Blood platelet mean volumeon 01-22-2022 Platelet mean volume (Bld) [Entitic vol] 12.8 fL 6.2-12.0 [facility] Work Phone: [phone] Determination of erythrocyte mean corpuscular volume (MCV)on 01-22-2022 MCV (RBC) [Entitic vol] 88.0 fL 81-99 [facility] Work Phone: [phone] Hematocrit Auto (Bld) [Volum e fraction]on 01-22-2022 Hematocrit (Bld) [Volume fraction] 36.5 % 37-47 [facility] Work Phone: Laboratory - Chemistry and C hemistry - challengeon 01-22-2022 CO2 [Moles/Vol] 26.0 mmol/L 21.0-32.0 [facility] Work Phone: [phone] Magnesium [Mass/Vol] 1.9 mg/dL 1.6-2.6 [facility] Work Phone: [phone] Urea nitrogen/Creatinine [Mass ratio] 24.1 mg/mg 10- [facility] Work Phone: [phone] Laboratory - Hematology and Cell countson 01-22-2022 Erythrocyte distribution width (RBC) [Entitic vol] 63.7 fL 35.1-43.9 [facility] Work Phone: [phone] Erythrocyte distribution width (RBC) [Ratio] 19.9 % 11.6-14.6 [facility] Work Phone: [phone] MCH (RBC) [Entitic mass] 27.5 pg 27.0-32.0 [facility] Work Phone: MCHC Auto (RBC) [Mass/Vol]on 01-22-2022 MCHC (RBC) [Mass/Vol] 31.2 g/dL 32-36 [facility] Work Phone: No Panel Informationon 01-22 Estimated GFR (MDRD) Amer 130 mL/min >60 [facility] Work Phone: [phone] Comment on above: GFR Calc Estimated GFR (MDRD) Non-Af Amer 107 mL/min >60 [facility] Work Phone: [phone] Comment on above: Non- GFR Calc Thyroid Stimulating Hormone (TSH) 0.57 uIU/mL 0.358-3.74 [facility] Work Phone: Vitamin D 25-Hydroxy 39.5 ng/mL [facility] Work Phone: [phone] Comment on above: Vitamin D 25(OH) Sta tus Range Deficiency <20 ng/mL (50nmol/L) Insufficiency 20 - 30 ng/mL (50 - 75 nmol/L) Sufficiency 30 - 100 ng/mL (75 - 250 nmol/L) Toxicity >100 ng/mL (>250 nmol/L) Platelets bldon 01-22-2022 Platelets (Bld) [#/Vol] 263 10*3/uL 150-450 [facility] Work Phone: Serum or plasma calcium rajni urement (mass/volume)on 01-22-2022 Calcium [Mass/Vol] 8.5 mg/dL 8.5-10.1 [facility] Work Phone: Serum or plasma creatinine m easurement (mass/volume)on 01-22-2022 Creatinine [Mass/Vol] 0.58 mg/dL 0.55-1.02 [facility] Work Phone: Comment on above: The validity of the calculated GFR & GFRAA in patients over 70 years has not been determined. Clinical correlation is essential. Serum or plasma urea nitroge n measurement (mass/volume)on 01-22-2022 Urea nitrogen [Mass/Vol] 14 mg/dL 7-18 [facility] Work Phone: Thin prep Papanicolaou smear with manual screeningon 01-22-2022 Thin prep Papanicolaou smear with manual screening 10 5-15 [facility] Work Phone: Basophil percentageon 2021 Chloride [Moles/Vol] 104 mmol/L 98-107 [facility] Work Phone: Glucose [Mass/Vol] 89 mg/dL 74-106 [facility] Work Phone: Potassium [Moles/Vol] 3.8 mmol/L 3.5-5.1 [facility] Work Phone: Sodium [Moles/Vol] 139 mmol/L 136-145 [facility] Work Phone: [phone] WBC (Bld) [#/Vol] 6.8 10*3/uL 4.4-11.0 [facility] Work Phone: Blood erythrocytes count (nu mber/volume)on 01-16-2022 RBC (Bld) [#/Vol] 3.95 10*6/uL 4.2-5.4 [facility] [place] Work Phone: Blood hemoglobin measurement (mass/volume)on 01-16-2022 Hemoglobin (Bld) [Mass/Vol] 10.9 g/dL 12.0-15.0 [facility] Work Phone: [phone] Blood platelet mean volumeon 01-16-2022 Platelet mean volume (Bld) [Entitic vol] 12.9 fL 6.2-12.0 [facility] Work Phone: Determination of erythrocyte mean corpuscular volume (MCV)on 01-16-2022 MCV (RBC) [Entitic vol] 87.3 fL 81-99 [facility] Work Phone: [phone] Hematocrit Auto (Bld) [Volum e fraction]on 01-16-2022 Hematocrit (Bld) [Volume fraction] 34.5 % 37-47 [facility] Work Phone: Laboratory - Chemistry and C hemistry - challengeon 01-16-2022 CO2 [Moles/Vol] 28.0 mmol/L 21.0-32.0 [facility] Work Phone: Urea nitrogen/Creatinine [Mass ratio] 22.2 mg/mg 10-20 [facility] Work Phone: [phone] Laboratory - Hematology and Cell countson 01-16-2022 Erythrocyte distribution width (RBC) [Entitic vol] 60.9 fL 35.1-43.9 [facility] Work Phone: [phone] Erythrocyte distribution width (RBC) [Ratio] 18.9 % 11.6-14.6 [facility] Work Phone: [phone] MCH (RBC) [Entitic mass] 27.6 pg 27.0-32.0 [facility] Work Phone: [phone] MCHC Auto (RBC) [Mass/Vol]on 01-16-2022 MCHC (RBC) [Mass/Vol] 31.6 g/dL 32-36 [facility] Work Phone: No Panel Informationon 01-16 Estimated GFR (MDRD) Amer 142 mL/min >60 [facility] Work Phone: Comment on above: GFR Calc Estimated GFR (MDRD) Non-Af Amer 117 mL/min >60 [facility] Work Phone: Comment on above: Non- GFR Calc Platelets bldon 01-16-2022 Platelets (Bld) [#/Vol] 286 10*3/uL 150-450 [facility] Work Phone: Serum or plasma calcium rajni urement (mass/volume)on 01-16-2022 Calcium [Mass/Vol] 8.3 mg/dL 8.5-10.1 [facility] Work Phone: Serum or plasma creatinine m easurement (mass/volume)on 01-16-2022 Creatinine [Mass/Vol] 0.54 mg/dL 0.55-1.02 [facility] Work Phone: Comment on above: The validity of the calculated GFR & GFRAA in patients over 70 years has not been determined. Clinical correlation is essential. Serum or plasma urea nitroge n measurement (mass/volume)on 01-16-2022 Urea nitrogen [Mass/Vol] 12 mg/dL 7-18 [facility] Work Phone: [phone] Thin prep Papanicolaou smear with manual screeningon 01-16-2022 Thin prep Papanicolaou smear with manual screening 7 5-15 [facility] Work Phone: Basophil percentageon 2021 Chloride [Moles/Vol] 106 mmol/L 98-107 [facility] Work Phone: [phone] Glucose [Mass/Vol] 91 mg/dL 74-106 [facility] Work Phone: [phone] Potassium [Moles/Vol] 4.3 mmol/L 3.5-5.1 [facility] Work Phone: [phone] Sodium [Moles/Vol] 140 mmol/L 136-145 [facility] Work Phone: WBC (Bld) [#/Vol] 14.6 10*3/uL 4.4-11.0 [facility] [place] Work Phone: Blood erythrocytes count (nu mber/volume)on 01-09-2022 RBC (Bld) [#/Vol] 3.86 10*6/uL 4.2-5.4 [facility] [place] Work Phone: Blood hemoglobin measurement (mass/volume)on 01-09-2022 Hemoglobin (Bld) [Mass/Vol] 10.6 g/dL 12.0-15.0 [facility] Work Phone: Blood platelet mean volumeon 01-09-2022 Platelet mean volume (Bld) [Entitic vol] 13.1 fL 6.2-12.0 [facility] Work Phone: CNOVon 01-09-[address] [facility] Determination of erythrocyte mean corpuscular volume (MCV)on 01-09-2022 MCV (RBC) [Entitic vol] 88.1 fL 81-99 [facility] Work Phone: Hematocrit Auto (Bld) [Volum e fraction]on 01-09-2022 Hematocrit (Bld) [Volume fraction] 34.0 % 37-47 [facility] Work Phone: Laboratory - Chemistry and C hemistry - challengeon 01-09-2022 CO2 [Moles/Vol] 28.0 mmol/L 21.0-32.0 [facility] Work Phone: Urea nitrogen/Creatinine [Mass ratio] 24.5 mg/mg 10-20 [facility] Work Phone: [phone] Laboratory - Hematology and Cell countson 01-09-2022 Erythrocyte distribution width (RBC) [Entitic vol] 59.2 fL 35.1-43.9 [facility] Work Phone: [phone] Erythrocyte distribution width (RBC) [Ratio] 18.4 % 11.6-14.6 [facility] Work Phone: [phone] MCH (RBC) [Entitic mass] 27.5 pg 27.0-32.0 [facility] Work Phone: MCHC Auto (RBC) [Mass/Vol]on 01-09-2022 MCHC (RBC) [Mass/Vol] 31.2 g/dL 32-36 [facility] Work Phone: No Panel Informationon 01-09 Estimated GFR (MDRD) Amer 144 mL/min >60 [facility] Work Phone: Comment on above: GFR Calc Estimated GFR (MDRD) Non-Af Amer 119 mL/min >60 [facility] Work Phone: Comment on above: Non- GFR Calc Platelets bldon 01-09-2022 Platelets (Bld) [#/Vol] 220 10*3/uL 150-450 [facility] Work Phone: Serum or plasma calcium rajni urement (mass/volume)on 01-09-2022 Calcium [Mass/Vol] 8.6 mg/dL 8.5-10.1 [facility] Work Phone: Serum or plasma creatinine m easurement (mass/volume)on 01-09-2022 Creatinine [Mass/Vol] 0.53 mg/dL 0.55-1.02 [facility] Work Phone: Comment on above: The validity of the calculated GFR & GFRAA in patients over 70 years has not been determined. Clinical correlation is essential. Serum or plasma urea nitroge n measurement (mass/volume)on 01-09-2022 Urea nitrogen [Mass/Vol] 13 mg/dL 7-18 [facility] Work Phone: Thin prep Papanicolaou smear with manual screeningon 01-09-2022 Thin prep Papanicolaou smear with manual screening 6 5-15 [facility] Work Phone: MRI BRAIN WO/W IVCONon 01-04 [facility] Basophil percentageon 2021 Chloride [Moles/Vol] 107 mmol/L 98-107 [facility] Work Phone: Glucose [Mass/Vol] 89 mg/dL 74-106 [facility] Work Phone: [phone] Potassium [Moles/Vol] 4.0 mmol/L 3.5-5.1 [facility] Work Phone: [phone] Sodium [Moles/Vol] 141 mmol/L 136-145 [facility] Work Phone: [phone] WBC (Bld) [#/Vol] 6.8 10*3/uL 4.4-11.0 [facility] Work Phone: [phone] Blood erythrocytes count (nu mber/volume)on 01-02-2022 RBC (Bld) [#/Vol] 4.07 10*6/uL 4.2-5.4 [facility] [place] Work Phone: [phone] Blood hemoglobin measurement (mass/volume)on 01-02-2022 Hemoglobin (Bld) [Mass/Vol] 11.5 g/dL 12.0-15.0 [facility] Work Phone: [phone] Blood platelet mean volumeon 01-02-2022 Platelet mean volume (Bld) [Entitic vol] 13.0 fL 6.2-12.0 [facility] Work Phone: [phone] Determination of erythrocyte mean corpuscular volume (MCV)on 01-02-2022 MCV (RBC) [Entitic vol] 90.4 fL 81-99 [facility] Work Phone: [phone] Hematocrit Auto (Bld) [Volum e fraction]on 01-02-2022 Hematocrit (Bld) [Volume fraction] 36.8 % 37-47 [facility] Work Phone: [phone] Laboratory - Chemistry and C hemistry - challengeon 01-02-2022 CO2 [Moles/Vol] 27.0 mmol/L 21.0-32.0 [facility] Work Phone: [phone] Urea nitrogen/Creatinine [Mass ratio] 15.7 mg/mg 10-20 [facility] Work Phone: [phone] Laboratory - Hematology and Cell countson 01-02-2022 Erythrocyte distribution width (RBC) [Entitic vol] 57.1 fL 35.1-43.9 [facility] Work Phone: Erythrocyte distribution width (RBC) [Ratio] 17.2 % 11.6-14.6 [facility] Work Phone: MCH (RBC) [Entitic mass] 28.3 pg 27.0-32.0 [facility] Work Phone: MCHC Auto (RBC) [Mass/Vol]on 01-02-2022 MCHC (RBC) [Mass/Vol] 31.3 g/dL 32-36 [facility] Work Phone: No Panel Informationon 01-02 Estimated GFR (MDRD) Amer 132 mL/min >60 [facility] Work Phone: Comment on above: GFR Calc Estimated GFR (MDRD) Non-Af Amer 109 mL/min >60 [facility] Work Phone: Comment on above: Non- GFR Calc Platelets bldon 01-02-2022 Platelets (Bld) [#/Vol] 274 10*3/uL 150-450 [facility] Work Phone: Serum or plasma calcium rajni urement (mass/volume)on 01-02-2022 Calcium [Mass/Vol] 9.7 mg/dL 8.5-10.1 [facility] Work Phone: Serum or plasma creatinine m easurement (mass/volume)on 01-02-2022 Creatinine [Mass/Vol] 0.58 mg/dL 0.55-1.02 [facility] Work Phone: Comment on above: The validity of the calculated GFR & GFRAA in patients over 70 years has not been determined. Clinical correlation is essential. Serum or plasma urea nitroge n measurement (mass/volume)on 01-02-2022 Urea nitrogen [Mass/Vol] 9 mg/dL 7-18 [facility] Work Phone: Thin prep Papanicolaou smear with manual screeningon 01-02-2022 Thin prep Papanicolaou smear with manual screening 7 5-15 [facility] Work Phone: Basophil percentageon 2021 Chloride [Moles/Vol] 104 mmol/L 98-107 [facility] Work Phone: Glucose [Mass/Vol] 77 mg/dL 74-106 [facility] Work Phone: [phone] Potassium [Moles/Vol] 4.1 mmol/L 3.5-5.1 [facility] Work Phone: [phone] Sodium [Moles/Vol] 140 mmol/L 136-145 [facility] Work Phone: [phone] WBC (Bld) [#/Vol] 7.0 10*3/uL 4.4-11.0 [facility] Work Phone: [phone] Blood erythrocytes count (nu mber/volume)on 12-26-2021 RBC (Bld) [#/Vol] 4.18 10*6/uL 4.2-5.4 [facility] Work Phone: [phone] Blood hemoglobin measurement (mass/volume)on 12-26-2021 Hemoglobin (Bld) [Mass/Vol] 12.5 g/dL 12.0-15.0 [facility] Work Phone: Blood platelet mean volumeon 12-26-2021 Platelet mean volume (Bld) [Entitic vol] 12.1 fL 6.2-12.0 [facility] Work Phone: [phone] Determination of erythrocyte mean corpuscular volume (MCV)on 12-26-2021 MCV (RBC) [Entitic vol] 96.9 fL 81-99 [facility] Work Phone: [phone] Hematocrit Auto (Bld) [Volum e fraction]on 12-26-2021 Hematocrit (Bld) [Volume fraction] 40.5 % 37-47 [facility] Work Phone: [phone] Laboratory - Chemistry and C hemistry - challengeon 12-26-2021 CO2 [Moles/Vol] 27.0 mmol/L 21.0-32.0 [facility] Work Phone: Urea nitrogen/Creatinine [Mass ratio] 18.7 mg/mg 10-20 [facility] Work Phone: Laboratory - Hematology and Cell countson 12-26-2021 Erythrocyte distribution width (RBC) [Entitic vol] 58.4 fL 35.1-43.9 [facility] Work Phone: Erythrocyte distribution width (RBC) [Ratio] 18.4 % 11.6-14.6 [facility] Work Phone: [phone] MCH (RBC) [Entitic mass] 29.9 pg 27.0-32.0 [facility] Work Phone: MCHC Auto (RBC) [Mass/Vol]on 12-26-2021 MCHC (RBC) [Mass/Vol] 30.9 g/dL 32-36 [facility] Work Phone: No Panel Informationon 12-26 Estimated GFR (MDRD) Amer 143 mL/min >60 [facility] Work Phone: Comment on above: GFR Calc Estimated GFR (MDRD) Non-Af Amer 118 mL/min >60 [facility] Work Phone: Comment on above: Non- GFR Calc Platelets bldon 12-26-2021 Platelets (Bld) [#/Vol] 286 10*3/uL 150-450 [facility] Work Phone: Serum or plasma calcium rajni urement (mass/volume)on 12-26-2021 Calcium [Mass/Vol] 9.8 mg/dL 8.5-10.1 [facility] Work Phone: [phone] Serum or plasma creatinine m easurement (mass/volume)on 12-26-2021 Creatinine [Mass/Vol] 0.54 mg/dL 0.55-1.02 [facility] Work Phone: Comment on above: The validity of the calculated GFR & GFRAA in patients over 70 years has not been determined. Clinical correlation is essential. Serum or plasma urea nitroge n measurement (mass/volume)on 09-06-2022 Urea nitrogen [Mass/Vol] 10 mg/dL 7-18 [facility] Work Phone: Thin prep Papanicolaou smear with manual screeningon 12-26-2021 Thin prep Papanicolaou smear with manual screening 9 5-15 [facility] Work Phone: Basophil percentageon 2021 Chloride [Moles/Vol] 108 mmol/L 98-107 [facility] Work Phone: [phone] Glucose [Mass/Vol] 91 mg/dL 74-106 [facility] Work Phone: [phone] Potassium [Moles/Vol] 3.5 mmol/L 3.5-5.1 [facility] Work Phone: [phone] Sodium [Moles/Vol] 142 mmol/L 136-145 [facility] Work Phone: [phone] WBC (Bld) [#/Vol] 7.1 10*3/uL 4.4-11.0 [facility] Work Phone: Blood erythrocytes count (nu mber/volume)on 12-20-2021 RBC (Bld) [#/Vol] 3.81 10*6/uL 4.2-5.4 [facility] Work Phone: [phone] Blood hemoglobin measurement (mass/volume)on 12-20-2021 Hemoglobin (Bld) [Mass/Vol] 10.6 g/dL 12.0-15.0 [facility] Work Phone: [phone] Blood platelet mean volumeon 12-20-2021 Platelet mean volume (Bld) [Entitic vol] 13.0 fL 6.2-12.0 [facility] Work Phone: [phone] Determination of erythrocyte mean corpuscular volume (MCV)on 12-20-2021 MCV (RBC) [Entitic vol] 89.0 fL 81-99 [facility] Work Phone: [phone] Hematocrit Auto (Bld) [Volum e fraction]on 12-20-2021 Hematocrit (Bld) [Volume fraction] 33.9 % 37-47 [facility] Work Phone: [phone] Laboratory - Chemistry and C hemistry - challengeon 12-20-2021 CO2 [Moles/Vol] 27.0 mmol/L 21.0-32.0 [facility] Work Phone: [phone] Urea nitrogen/Creatinine [Mass ratio] 19.1 mg/mg 10-20 [facility] Work Phone: [phone] Laboratory - Hematology and Cell countson 12-20-2021 Erythrocyte distribution width (RBC) [Entitic vol] 51.5 fL 35.1-43.9 [facility] Work Phone: [phone] Erythrocyte distribution width (RBC) [Ratio] 15.8 % 11.6-14.6 [facility] Work Phone: [phone] MCH (RBC) [Entitic mass] 27.8 pg 27.0-32.0 [facility] Work Phone: [phone] MCHC Auto (RBC) [Mass/Vol]on 12-20-2021 MCHC (RBC) [Mass/Vol] 31.3 g/dL 32-36 [facility] Work Phone: No Panel Informationon 12-20 Estimated GFR (MDRD) Amer 132 mL/min >60 [facility] Work Phone: [phone] Comment on above: GFR Calc Estimated GFR (MDRD) Non-Af Amer 109 mL/min >60 [facility] Work Phone: [phone] Comment on above: Non- GFR Calc Platelets bldon 12-20-2021 Platelets (Bld) [#/Vol] 286 10*3/uL 150-450 [facility] Work Phone: [phone] Serum or plasma calcium rajni urement (mass/volume)on 12-20-2021 Calcium [Mass/Vol] 8.9 mg/dL 8.5-10.1 [facility] Work Phone: [phone] Serum or plasma creatinine m easurement (mass/volume)on 12-20-2021 Creatinine [Mass/Vol] 0.58 mg/dL 0.55-1.02 [facility] Work Phone: Comment on above: The validity of the calculated GFR & GFRAA in patients over 70 years has not been determined. Clinical correlation is essential. Serum or plasma urea nitroge n measurement (mass/volume)on 12-20-2021 Urea nitrogen [Mass/Vol] 11 mg/dL 7-18 [facility] Work Phone: Thin prep Papanicolaou smear with manual screeningon 12-20-2021 Thin prep Papanicolaou smear with manual screening 7 5-15 [facility] Work Phone: Basophil percentageon 2021 Basophil percentage 10-25 SEEN /hpf 0-5 [facility] Work Phone: Bilirubin Test strip Ql (U)o n 12-18-2021 Bilirubin Ql (U) Negative Negative [facility] Work Phone: Ketones Test strip Ql (U)on 12-18-2021 Ketones Ql (U) Negative Negative [facility] Work Phone: Mucus LM Ql (Urine sed)on Mucus Ql (Urine sed) 0 SEEN /hpf [facility] Work Phone: Nitrite Test strip Ql (U)on 12-18-2021 Nitrite Ql (U) Negative Negative [facility] Work Phone: Protein Test strip Ql (U)on 12-18-2021 Protein Ql (U) Negative Negative [facility] Work Phone: Squamous epithelial cells de tection in urine sediment by light microscopyon 12-18-2021 Epithelial cells.squamous LM Ql (Urine sed) 0 SEEN /hpf 5-10 [facility] Work Phone: Urine blood detectionon 11-21 RBC Ql (U) 10 /ul Negative [facility] Work Phone: RBC Ql (U) 0 SEEN /hpf 0-5 [facility] Work Phone: Urine clarityon 12-18-2021 Clarity (U) Clear Clear [facility] Work Phone: Urine color determinationon 12-18-2021 Color (U) Yellow Yellow [facility] Work Phone: Urine glucose detectionon Glucose Ql (U) Normal mg/dl Normal [facility] Work Phone: Urine leukocyte esterase det ection by dipstickon 12-18-2021 Leukocyte esterase Test strip Ql (U) 500 /ul Negative [facility] Work Phone: Urine pHon 12-18-2021 pH (U) 6.0 [pH] 5.0 - 8.0 [facility] Work Phone: Urine sediment bacteria coun t by microscopy (number/high power field)on 12-18-2021 Bacteria LM.HPF (Urine sed) [#/Area] 2 /[HPF] None Seen [facility] Work Phone: Urine specific gravity measu rementon 12-18-2021 Specific gravity (U) [Rel density] 1.020 1.002-1.030 [facility] Work Phone: Urobilinogen Auto test strip Ql (U)on 12-18-2021 Urobilinogen Ql (U) Normal mg/dl Normal [facility] Work Phone: Basophil percentageon 2021 Chloride [Moles/Vol] 106 mmol/L 98-107 [facility] Work Phone: Glucose [Mass/Vol] 85 mg/dL 74-106 [facility] Work Phone: Potassium [Moles/Vol] 3.5 mmol/L 3.5-5.1 [facility] Work Phone: Sodium [Moles/Vol] 140 mmol/L 136-145 [facility] Work Phone: WBC (Bld) [#/Vol] 8.8 10*3/uL 4.4-11.0 [facility] Work Phone: Blood erythrocytes count (nu mber/volume)on 12-12-2021 RBC (Bld) [#/Vol] 4.43 10*6/uL 4.2-5.4 [facility] Work Phone: [phone] Blood hemoglobin measurement (mass/volume)on 12-12-2021 Hemoglobin (Bld) [Mass/Vol] 12.3 g/dL 12.0-15.0 [facility] Work Phone: [phone] Blood platelet mean volumeon 12-12-2021 Platelet mean volume (Bld) [Entitic vol] 12.8 fL 6.2-12.0 [facility] Work Phone: [phone] Determination of erythrocyte mean corpuscular volume (MCV)on 12-12-2021 MCV (RBC) [Entitic vol] 87.6 fL 81-99 [facility] Work Phone: [phone] Hematocrit Auto (Bld) [Volum e fraction]on 12-12-2021 Hematocrit (Bld) [Volume fraction] 38.8 % 37-47 [facility] Work Phone: Laboratory - Chemistry and C hemistry - challengeon 12-12-2021 CO2 [Moles/Vol] 27.0 mmol/L 21.0-32.0 [facility] Work Phone: [phone] Urea nitrogen/Creatinine [Mass ratio] 18.6 mg/mg 10-20 [facility] Work Phone: [phone] Laboratory - Hematology and Cell countson 12-12-2021 Erythrocyte distribution width (RBC) [Entitic vol] 48.2 fL 35.1-43.9 [facility] Work Phone: [phone] Erythrocyte distribution width (RBC) [Ratio] 14.9 % 11.6-14.6 [facility] Work Phone: [phone] MCH (RBC) [Entitic mass] 27.8 pg 27.0-32.0 [facility] Work Phone: [phone] MCHC Auto (RBC) [Mass/Vol]on 12-12-2021 MCHC (RBC) [Mass/Vol] 31.7 g/dL 32-36 [facility] Work Phone: [phone] No Panel Informationon 12-12 Estimated GFR (MDRD) Amer 142 mL/min >60 [facility] Work Phone: Comment on above: GFR Calc Estimated GFR (MDRD) Non-Af Amer 117 mL/min >60 [facility] Work Phone: Comment on above: Non- GFR Calc Platelets bldon 12-12-2021 Platelets (Bld) [#/Vol] 354 10*3/uL 150-450 [facility] Work Phone: Serum or plasma calcium rajni urement (mass/volume)on 12-12-2021 Calcium [Mass/Vol] 9.8 mg/dL 8.5-10.1 [facility] Work Phone: Serum or plasma creatinine m easurement (mass/volume)on 12-12-2021 Creatinine [Mass/Vol] 0.54 mg/dL 0.55-1.02 [facility] Work Phone: Comment on above: The validity of the calculated GFR & GFRAA in patients over 70 years has not been determined. Clinical correlation is essential. Serum or plasma urea nitroge n measurement (mass/volume)on 12-12-2021 Urea nitrogen [Mass/Vol] 10 mg/dL 7-18 [facility] Work Phone: Thin prep Papanicolaou smear with manual screeningon 12-12-2021 Thin prep Papanicolaou smear with manual screening 7 5-15 [facility] Work Phone: Basophil percentageon 2021 Chloride [Moles/Vol] 104 mmol/L 98-107 [facility] Work Phone: [phone] Glucose [Mass/Vol] 100 mg/dL 74-106 [facility] Work Phone: Comment on above: Fasting Glucose resu lt from 100 to 125 mg/dL suggests IMPAIRED HOMEOSTASIS per A.D.A. criteria. Potassium [Moles/Vol] 3.8 mmol/L 3.5-5.1 [facility] Work Phone: Sodium [Moles/Vol] 138 mmol/L 136-145 [facility] Work Phone: [phone] WBC (Bld) [#/Vol] 10.0 10*3/uL 4.4-11.0 [facility] Work Phone: [phone] Blood erythrocytes count (nu mber/volume)on 12-05-2021 RBC (Bld) [#/Vol] 3.74 10*6/uL 4.2-5.4 [facility] Work Phone: [phone] Blood hemoglobin measurement (mass/volume)on 12-05-2021 Hemoglobin (Bld) [Mass/Vol] 10.8 g/dL 12.0-15.0 [facility] Work Phone: [phone] Blood platelet mean volumeon 12-05-2021 Platelet mean volume (Bld) [Entitic vol] 12.0 fL 6.2-12.0 [facility] Work Phone: [phone] Determination of erythrocyte mean corpuscular volume (MCV)on 12-05-2021 MCV (RBC) [Entitic vol] 90.1 fL 81-99 [facility] Work Phone: [phone] Hematocrit Auto (Bld) [Volum e fraction]on 12-05-2021 Hematocrit (Bld) [Volume fraction] 33.7 % 37-47 [facility] Work Phone: [phone] Laboratory - Chemistry and C hemistry - challengeon 12-05-2021 CO2 [Moles/Vol] 26.0 mmol/L 21.0-32.0 [facility] Work Phone: [phone] Urea nitrogen/Creatinine [Mass ratio] 20.2 mg/mg 10-20 [facility] Work Phone: [phone] Laboratory - Hematology and Cell countson 12-05-2021 Erythrocyte distribution width (RBC) [Entitic vol] 48.7 fL 35.1-43.9 [facility] Work Phone: [phone] Erythrocyte distribution width (RBC) [Ratio] 14.6 % 11.6-14.6 [facility] Work Phone: [phone] MCH (RBC) [Entitic mass] 28.9 pg 27.0-32.0 [facility] Work Phone: MCHC Auto (RBC) [Mass/Vol]on 12-05-2021 MCHC (RBC) [Mass/Vol] 32.0 g/dL 32-36 [facility] Work Phone: No Panel Informationon 12-05 Estimated GFR (MDRD) Amer 157 mL/min >60 [facility] Work Phone: Comment on above: GFR Calc Estimated GFR (MDRD) Non-Af Amer 130 mL/min >60 [facility] Work Phone: Comment on above: Non- GFR Calc Platelets bldon 12-05-2021 Platelets (Bld) [#/Vol] 360 10*3/uL 150-450 [facility] Work Phone: Serum or plasma calcium rajni urement (mass/volume)on 12-05-2021 Calcium [Mass/Vol] 9.9 mg/dL 8.5-10.1 [facility] Work Phone: Serum or plasma creatinine m easurement (mass/volume)on 12-05-2021 Creatinine [Mass/Vol] 0.49 mg/dL 0.55-1.02 [facility] Work Phone: Comment on above: The validity of the calculated GFR & GFRAA in patients over 70 years has not been determined. Clinical correlation is essential. Serum or plasma urea nitroge n measurement (mass/volume)on 12-05-2021 Urea nitrogen [Mass/Vol] 10 mg/dL 7-18 [facility] Work Phone: Thin prep Papanicolaou smear with manual screeningon 12-05-2021 Thin prep Papanicolaou smear with manual screening 8 5-15 [facility] Work Phone: Bilirubin Test strip Ql (U)o n 12-03-2021 Bilirubin Ql (U) Negative Negative [facility] Work Phone: [phone] Ketones Test strip Ql (U)on 12-03-2021 Ketones Ql (U) 5 mg/dl Negative [facility] Work Phone: Nitrite Test strip Ql (U)on 12-03-2021 Nitrite Ql (U) Positive Negative [facility] Work Phone: Protein Test strip Ql (U)on 12-03-2021 Protein Ql (U) 30 mg/dl Negative [facility] Work Phone: Urine blood detectionon 11-20 RBC Ql (U) 50 /ul Negative [facility] Work Phone: Urine clarityon 12-03-2021 Clarity (U) Cloudy Clear [facility] Work Phone: Urine color determinationon 12-03-2021 Color (U) Straw Yellow [facility] Work Phone: Urine glucose detectionon Glucose Ql (U) Normal mg/dl Normal [facility] Work Phone: Urine leukocyte esterase det ection by dipstickon 12-03-2021 Leukocyte esterase Test strip Ql (U) 500 /ul Negative [facility] Work Phone: Urine pHon 12-03-2021 pH (U) 6.0 [pH] 5.0 - 8.0 [facility] Work Phone: Urine specific gravity measu rementon 12-03-2021 Specific gravity (U) [Rel density] 1.010 1.002-1.030 [facility] Work Phone: Urobilinogen Auto test strip Ql (U)on 12-03-2021 Urobilinogen Ql (U) Normal mg/dl Normal [facility] Work Phone: Basophil percentageon 2021 Chloride [Moles/Vol] 101 mmol/L 98-[address] [facility] Work Phone: Glucose [Mass/Vol] 107 mg/dL 74-106 [facility] Work Phone: Comment on above: Fasting Glucose resu lt from 100 to 125 mg/dL suggests IMPAIRED HOMEOSTASIS per A.D.A. criteria. Potassium [Moles/Vol] 3.6 mmol/L 3.5-5.1 [facility] Work Phone: Sodium [Moles/Vol] 136 mmol/L 136-145 [facility] Work Phone: Laboratory - Chemistry and C hemistry - challengeon 12-01-2021 CO2 [Moles/Vol] 29.0 mmol/L 21.0-32.0 [facility] Work Phone: Urea nitrogen/Creatinine [Mass ratio] 24.2 mg/mg 10-20 [facility] Work Phone: No Panel Informationon 12-01 Estimated GFR (MDRD) Amer 249 mL/min >60 [facility] Work Phone: Comment on above: GFR Calc Estimated GFR (MDRD) Non-Af Amer 206 mL/min >60 [facility] Work Phone: Comment on above: Non- GFR Calc Serum or plasma calcium rajni urement (mass/volume)on 12-01-2021 Calcium [Mass/Vol] 9.0 mg/dL 8.5-10.1 [facility] Work Phone: Serum or plasma creatinine m easurement (mass/volume)on 12-01-2021 Creatinine [Mass/Vol] 0.33 mg/dL 0.55-1.02 [facility] Work Phone: Comment on above: The validity of the calculated GFR & GFRAA in patients over 70 years has not been determined. Clinical correlation is essential. Serum or plasma urea nitroge n measurement (mass/volume)on 12-01-2021 Urea nitrogen [Mass/Vol] 8 mg/dL 7-18 [facility] Work Phone: Thin prep Papanicolaou smear with manual screeningon 12-01-2021 Thin prep Papanicolaou smear with manual screening 6 5-15 [facility] Work Phone: Basophil percentageon 2021 Chloride [Moles/Vol] 100 mmol/L 98-107 [facility] Work Phone: Glucose [Mass/Vol] 81 mg/dL 74-106 [facility] Work Phone: [phone] Potassium [Moles/Vol] 2.7 mmol/L 3.5-5.1 [facility] Work Phone: Comment on above: Critical Result(s) C alled at: 09:58:37 11/28/2021 by: Rosaura May to Christina. Results read back by same. Sodium [Moles/Vol] 134 mmol/L 136-145 [facility] Work Phone: [phone] WBC (Bld) [#/Vol] 9.7 10*3/uL 4.4-11.0 [facility] Work Phone: [phone] Blood erythrocytes count (nu mber/volume)on 11-28-2021 RBC (Bld) [#/Vol] 3.97 10*6/uL 4.2-5.4 [facility] Work Phone: [phone] Blood hemoglobin measurement (mass/volume)on 11-28-2021 Hemoglobin (Bld) [Mass/Vol] 11.4 g/dL 12.0-15.0 [facility] Work Phone: [phone] Blood platelet mean volumeon 11-28-2021 Platelet mean volume (Bld) [Entitic vol] 11.8 fL 6.2-12.0 [facility] Work Phone: [phone] Determination of erythrocyte mean corpuscular volume (MCV)on 11-28-2021 MCV (RBC) [Entitic vol] 88.7 fL 81-99 [facility] Work Phone: [phone] Hematocrit Auto (Bld) [Volum e fraction]on 11-28-2021 Hematocrit (Bld) [Volume fraction] 35.2 % 37-47 [facility] Work Phone: [phone] Laboratory - Chemistry and C hemistry - challengeon 11-28-2021 CO2 [Moles/Vol] 25.0 mmol/L 21.0-32.0 [facility] Work Phone: [phone] Urea nitrogen/Creatinine [Mass ratio] 10.9 mg/mg 10-20 [facility] Work Phone: Laboratory - Hematology and Cell countson 11-28-2021 Erythrocyte distribution width (RBC) [Entitic vol] 45.2 fL 35.1-43.9 [facility] Work Phone: Erythrocyte distribution width (RBC) [Ratio] 13.9 % 11.6-14.6 [facility] Work Phone: [phone] MCH (RBC) [Entitic mass] 28.7 pg 27.0-32.0 [facility] Work Phone: [phone] MCHC Auto (RBC) [Mass/Vol]on 11-28-2021 MCHC (RBC) [Mass/Vol] 32.4 g/dL 32-36 [facility] Work Phone: No Panel Informationon 11-28 Estimated GFR (MDRD) Amer 171 mL/min >60 [facility] Work Phone: Comment on above: GFR Calc Estimated GFR (MDRD) Non-Af Amer 141 mL/min >60 [facility] Work Phone: Comment on above: Non- GFR Calc Platelets bldon 11-28-2021 Platelets (Bld) [#/Vol] 339 10*3/uL 150-450 [facility] Work Phone: Serum or plasma calcium rajni urement (mass/volume)on 11-28-2021 Calcium [Mass/Vol] 9.1 mg/dL 8.5-10.1 [facility] Work Phone: [phone] Serum or plasma creatinine m easurement (mass/volume)on 11-28-2021 Creatinine [Mass/Vol] 0.46 mg/dL 0.55-1.02 [facility] Work Phone: Comment on above: The validity of the calculated GFR & GFRAA in patients over 70 years has not been determined. Clinical correlation is essential. Serum or plasma urea nitroge n measurement (mass/volume)on 11-28-2021 Urea nitrogen [Mass/Vol] 5 mg/dL 7-18 [facility] Work Phone: Thin prep Papanicolaou smear with manual screeningon 11-28-2021 Thin prep Papanicolaou smear with manual screening 9 5-15 [facility] Work Phone: Basophil percentageon 2021 Chloride [Moles/Vol] 102 mmol/L 98-107 [facility] Work Phone: Glucose [Mass/Vol] 103 mg/dL 74-106 [facility] Work Phone: Comment on above: Fasting Glucose resu lt from 100 to 125 mg/dL suggests IMPAIRED HOMEOSTASIS per A.D.A. criteria. Potassium [Moles/Vol] 3.2 mmol/L 3.5-5.1 [facility] Work Phone: Sodium [Moles/Vol] 136 mmol/L 136-145 [facility] Work Phone: WBC (Bld) [#/Vol] 9.2 10*3/uL 4.4-11.0 [facility] Work Phone: Blood erythrocytes count (nu mber/volume)on 11-21-2021 RBC (Bld) [#/Vol] 3.66 10*6/uL 4.2-5.4 [facility] Work Phone: Blood hemoglobin measurement (mass/volume)on 11-21-2021 Hemoglobin (Bld) [Mass/Vol] 10.6 g/dL 12.0-15.0 [facility] Work Phone: Blood platelet mean volumeon 11-21-2021 Platelet mean volume (Bld) [Entitic vol] 11.6 fL 6.2-12.0 [facility] Work Phone: [phone] Determination of erythrocyte mean corpuscular volume (MCV)on 11-21-2021 MCV (RBC) [Entitic vol] 91.8 fL 81-99 [facility] Work Phone: [phone] Hematocrit Auto (Bld) [Volum e fraction]on 11-21-2021 Hematocrit (Bld) [Volume fraction] 33.6 % 37-47 [facility] Work Phone: Laboratory - Chemistry and C hemistry - challengeon 11-21-2021 CO2 [Moles/Vol] 30.0 mmol/L 21.0-32.0 [facility] Work Phone: Urea nitrogen/Creatinine [Mass ratio] 14.3 mg/mg 10-20 [facility] Work Phone: [phone] Laboratory - Hematology and Cell countson 11-21-2021 Erythrocyte distribution width (RBC) [Entitic vol] 48.1 fL 35.1-43.9 [facility] Work Phone: [phone] Erythrocyte distribution width (RBC) [Ratio] 14.2 % 11.6-14.6 [facility] Work Phone: MCH (RBC) [Entitic mass] 29.0 pg 27.0-32.0 [facility] Work Phone: [phone] MCHC Auto (RBC) [Mass/Vol]on 11-21-2021 MCHC (RBC) [Mass/Vol] 31.5 g/dL 32-36 [facility] Work Phone: No Panel Informationon 11-21 Estimated GFR (MDRD) Amer 189 mL/min >60 [facility] Work Phone: Comment on above: GFR Calc Estimated GFR (MDRD) Non-Af Amer 156 mL/min >60 [facility] Work Phone: [phone] Comment on above: Non- GFR Calc Platelets bldon 11-21-2021 Platelets (Bld) [#/Vol] 382 10*3/uL 150-450 [facility] Work Phone: [phone] Serum or plasma calcium rajni urement (mass/volume)on 11-21-2021 Calcium [Mass/Vol] 9.2 mg/dL 8.5-10.1 [facility] Work Phone: [phone] Serum or plasma creatinine m easurement (mass/volume)on 11-21-2021 Creatinine [Mass/Vol] 0.42 mg/dL 0.55-1.02 [facility] Work Phone: Comment on above: The validity of the calculated GFR & GFRAA in patients over 70 years has not been determined. Clinical correlation is essential. Serum or plasma urea nitroge n measurement (mass/volume)on 11-21-2021 Urea nitrogen [Mass/Vol] 6 mg/dL 7-18 [facility] Work Phone: [phone] Thin prep Papanicolaou smear with manual screeningon 11-21-2021 Thin prep Papanicolaou smear with manual screening 4 5-15 [facility] Work Phone: Basophil percentageon 2021 Chloride [Moles/Vol] 101 mmol/L 98-107 [facility] Work Phone: [phone] Glucose [Mass/Vol] 94 mg/dL 74-106 [facility] Work Phone: [phone] Potassium [Moles/Vol] 4.1 mmol/L 3.5-5.1 [facility] Work Phone: [phone] Sodium [Moles/Vol] 136 mmol/L 136-145 [facility] Work Phone: [phone] WBC (Bld) [#/Vol] 10.6 10*3/uL 4.4-11.0 [facility] Work Phone: [phone] Blood erythrocytes count (nu mber/volume)on 11-14-2021 RBC (Bld) [#/Vol] 3.93 10*6/uL 4.2-5.4 [facility] Work Phone: [phone] Blood hemoglobin measurement (mass/volume)on 11-14-2021 Hemoglobin (Bld) [Mass/Vol] 11.6 g/dL 12.0-15.0 [facility] Work Phone: [phone] Blood platelet mean volumeon 11-14-2021 Platelet mean volume (Bld) [Entitic vol] 11.8 fL 6.2-12.0 [facility] Work Phone: [phone] Determination of erythrocyte mean corpuscular volume (MCV)on 11-14-2021 MCV (RBC) [Entitic vol] 96.2 fL 81-99 [facility] Work Phone: [phone] Hematocrit Auto (Bld) [Volum e fraction]on 11-14-2021 Hematocrit (Bld) [Volume fraction] 37.8 % 37-47 [facility] Work Phone: [phone] Laboratory - Chemistry and C hemistry - challengeon 11-14-2021 CO2 [Moles/Vol] 26.0 mmol/L 21.0-32.0 [facility] Work Phone: [phone] Urea nitrogen/Creatinine [Mass ratio] 11.9 mg/mg 10-20 [facility] Work Phone: [phone] Laboratory - Hematology and Cell countson 11-14-2021 Erythrocyte distribution width (RBC) [Entitic vol] 51.3 fL 35.1-43.9 [facility] Work Phone: [phone] Erythrocyte distribution width (RBC) [Ratio] 14.5 % 11.6-14.6 [facility] Work Phone: [phone] MCH (RBC) [Entitic mass] 29.5 pg 27.0-32.0 [facility] Work Phone: [phone] MCHC Auto (RBC) [Mass/Vol]on 11-14-2021 MCHC (RBC) [Mass/Vol] 30.7 g/dL 32-36 [facility] Work Phone: [phone] No Panel Informationon 11-14 Estimated GFR (MDRD) Amer 153 mL/min >60 [facility] Work Phone: [phone] Comment on above: GFR Calc Estimated GFR (MDRD) Non-Af Amer 126 mL/min >60 [facility] Work Phone: [phone] Comment on above: Non- GFR Calc Platelets bldon 11-14-2021 Platelets (Bld) [#/Vol] 473 10*3/uL 150-450 [facility] Work Phone: [phone] Serum or plasma calcium rajni urement (mass/volume)on 11-14-2021 Calcium [Mass/Vol] 9.7 mg/dL 8.5-10.1 [facility] Work Phone: Serum or plasma creatinine m easurement (mass/volume)on 11-14-2021 Creatinine [Mass/Vol] 0.50 mg/dL 0.55-1.02 [facility] Work Phone: Comment on above: The validity of the calculated GFR & GFRAA in patients over 70 years has not been determined. Clinical correlation is essential. Serum or plasma urea nitroge n measurement (mass/volume)on 11-14-2021 Urea nitrogen [Mass/Vol] 6 mg/dL 7-18 [facility] Work Phone: Thin prep Papanicolaou smear with manual screeningon 11-14-2021 Thin prep Papanicolaou smear with manual screening 9 5-15 [facility] Work Phone: Basophil percentageon 2021 Basophil percentage 0-5 SEEN /hpf 0-5 [facility] Work Phone: Bilirubin Test strip Ql (U)o n 11-09-2021 Bilirubin Ql (U) Negative Negative [facility] Work Phone: Ketones Test strip Ql (U)on 11-09-2021 Ketones Ql (U) Negative Negative [facility] Work Phone: Mucus LM Ql (Urine sed)on Mucus Ql (Urine sed) 0 SEEN /hpf [facility] Work Phone: Nitrite Test strip Ql (U)on 11-09-2021 Nitrite Ql (U) Positive Negative [facility] Work Phone: Protein Test strip Ql (U)on 11-09-2021 Protein Ql (U) Negative Negative [facility] Work Phone: Squamous epithelial cells de tection in urine sediment by light microscopyon 11-09-2021 Epithelial cells.squamous LM Ql (Urine sed) 0-5 SEEN /hpf 5-10 [facility] Work Phone: Urine blood detectionon - RBC Ql (U) 10 /ul Negative [facility] Work Phone: RBC Ql (U) 0 SEEN /hpf 0-5 [facility] Work Phone: Urine clarityon 11-09-2021 Clarity (U) Clear Clear [facility] Work Phone: Urine color determinationon 11-09-2021 Color (U) Yellow Yellow [facility] Work Phone: Urine glucose detectionon Glucose Ql (U) Normal mg/dl Normal [facility] Work Phone: Urine leukocyte esterase det ection by dipstickon 11-09-2021 Leukocyte esterase Test strip Ql (U) 500 /ul Negative [facility] Work Phone: Urine pHon 11-09-2021 pH (U) 7.0 [pH] 5.0 - 8.0 [facility] Work Phone: Urine sediment bacteria coun t by microscopy (number/high power field)on 11-09-2021 Bacteria LM.HPF (Urine sed) [#/Area] 0 /[HPF] None Seen [facility] Work Phone: Urine specific gravity measu rementon 11-09-2021 Specific gravity (U) [Rel density] 1.010 1.002-1.030 [facility] Work Phone: Urobilinogen Auto test strip Ql (U)on 11-09-2021 Urobilinogen Ql (U) Normal mg/dl Normal [facility] Work Phone: Basophil percentageon 2021 Chloride [Moles/Vol] 102 mmol/L 98-107 [facility] [address] [facility] Work Phone: Glucose [Mass/Vol] 113 mg/dL 74-106 [facility] Work Phone: Comment on above: Fasting Glucose resu lt from 100 to 125 mg/dL suggests IMPAIRED HOMEOSTASIS per A.D.A. criteria. Potassium [Moles/Vol] 3.4 mmol/L 3.5-5.1 [facility] Work Phone: Sodium [Moles/Vol] 137 mmol/L 136-145 [facility] Work Phone: [phone] WBC (Bld) [#/Vol] 9.7 10*3/uL 4.4-11.0 [facility] Work Phone: [phone] Blood erythrocytes count (nu mber/volume)on 11-07-2021 RBC (Bld) [#/Vol] 3.32 10*6/uL 4.2-5.4 [facility] Work Phone: [phone] Blood hemoglobin measurement (mass/volume)on 11-07-2021 Hemoglobin (Bld) [Mass/Vol] 9.9 g/dL 12.0-15.0 [facility] Work Phone: [phone] Blood platelet mean volumeon 11-07-2021 Platelet mean volume (Bld) [Entitic vol] 10.3 fL 6.2-12.0 [facility] Work Phone: [phone] Determination of erythrocyte mean corpuscular volume (MCV)on 11-07-2021 MCV (RBC) [Entitic vol] 94.9 fL 81-99 [facility] Work Phone: [phone] Hematocrit Auto (Bld) [Volum e fraction]on 11-07-2021 Hematocrit (Bld) [Volume fraction] 31.5 % 37-47 [facility] Work Phone: [phone] Laboratory - Chemistry and C hemistry - challengeon 11-07-2021 CO2 [Moles/Vol] 29.0 mmol/L 21.0-32.0 [facility] Work Phone: [phone] Urea nitrogen/Creatinine [Mass ratio] 17.7 mg/mg 10-20 [facility] Work Phone: [phone] Laboratory - Hematology and Cell countson 11-07-2021 Erythrocyte distribution width (RBC) [Entitic vol] 49.9 fL 35.1-43.9 [facility] Work Phone: [phone] Erythrocyte distribution width (RBC) [Ratio] 14.2 % 11.6-14.6 [facility] Work Phone: MCH (RBC) [Entitic mass] 29.8 pg 27.0-32.0 [facility] Work Phone: MCHC Auto (RBC) [Mass/Vol]on 11-07-2021 MCHC (RBC) [Mass/Vol] 31.4 g/dL 32-36 [facility] Work Phone: No Panel Informationon 11-07 Estimated GFR (MDRD) Amer 203 mL/min >60 [facility] Work Phone: Comment on above: GFR Calc Estimated GFR (MDRD) Non-Af Amer 168 mL/min >60 [facility] Work Phone: Comment on above: Non- GFR Calc Platelets bldon 11-07-2021 Platelets (Bld) [#/Vol] 357 10*3/uL 150-450 [facility] Work Phone: Serum or plasma calcium rajni urement (mass/volume)on 11-07-2021 Calcium [Mass/Vol] 8.8 mg/dL 8.5-10.1 [facility] Work Phone: Serum or plasma creatinine m easurement (mass/volume)on 11-07-2021 Creatinine [Mass/Vol] 0.40 mg/dL 0.55-1.02 [facility] Work Phone: Comment on above: The validity of the calculated GFR & GFRAA in patients over 70 years has not been determined. Clinical correlation is essential. Serum or plasma urea nitroge n measurement (mass/volume)on 11-07-2021 Urea nitrogen [Mass/Vol] 7 mg/dL 7-18 [facility] Work Phone: Thin prep Papanicolaou smear with manual screeningon 11-07-2021 Thin prep Papanicolaou smear with manual screening 6 5-15 [facility] Work Phone: CNOVon 11-03-[address] [facility] CNNURSEon 11-02-[address] [facility] XR CHEST 2V FRONTAL/LATon XR CHEST 2V FRONTAL/LAT Normal [facility] Basophil percentageon 2021 Chloride [Moles/Vol] 99 mmol/L 98-107 [facility] Work Phone: Glucose [Mass/Vol] 107 mg/dL 74-106 [facility] Work Phone: Comment on above: Fasting Glucose resu lt from 100 to 125 mg/dL suggests IMPAIRED HOMEOSTASIS per A.D.A. criteria. Potassium [Moles/Vol] 3.5 mmol/L 3.5-5.1 [facility] Work Phone: Sodium [Moles/Vol] 135 mmol/L 136-145 [facility] Work Phone: [phone] WBC (Bld) [#/Vol] 12.1 10*3/uL 4.4-11.0 [facility] Work Phone: Blood erythrocytes count (nu mber/volume)on 10-31-2021 RBC (Bld) [#/Vol] 3.12 10*6/uL 4.2-5.4 [facility] Work Phone: Blood hemoglobin measurement (mass/volume)on 10-31-2021 Hemoglobin (Bld) [Mass/Vol] 9.3 g/dL 12.0-15.0 [facility] Work Phone: [phone] Blood platelet mean volumeon 10-31-2021 Platelet mean volume (Bld) [Entitic vol] 9.8 fL 6.2-12.0 [facility] Work Phone: [phone] Determination of erythrocyte mean corpuscular volume (MCV)on 10-31-2021 MCV (RBC) [Entitic vol] 96.2 fL 81-99 [facility] Work Phone: [phone] Hematocrit Auto (Bld) [Volum e fraction]on 10-31-2021 Hematocrit (Bld) [Volume fraction] 30.0 % 37-47 [facility] Work Phone: Laboratory - Chemistry and C hemistry - challengeon 07-12-2022 CO2 [Moles/Vol] 26.0 mmol/L 21.0-32.0 [facility] Work Phone: Urea nitrogen/Creatinine [Mass ratio] 14.1 mg/mg 10-20 [facility] Work Phone: Laboratory - Hematology and Cell countson 10-31-2021 Erythrocyte distribution width (RBC) [Entitic vol] 50.3 fL 35.1-43.9 [facility] Work Phone: Erythrocyte distribution width (RBC) [Ratio] 14.3 % 11.6-14.6 [facility] Work Phone: MCH (RBC) [Entitic mass] 29.8 pg 27.0-32.0 [facility] Work Phone: MCHC Auto (RBC) [Mass/Vol]on 10-31-2021 MCHC (RBC) [Mass/Vol] 31.0 g/dL 32-36 [facility] Work Phone: No Panel Informationon 10-31 Estimated GFR (MDRD) Amer 157 mL/min >60 [facility] Work Phone: Comment on above: GFR Calc Estimated GFR (MDRD) Non-Af Amer 129 mL/min >60 [facility] Work Phone: Comment on above: Non- GFR Calc Platelets bldon 10-31-2021 Platelets (Bld) [#/Vol] 459 10*3/uL 150-450 [facility] Work Phone: Serum or plasma calcium rajni urement (mass/volume)on 10-31-2021 Calcium [Mass/Vol] 7.8 mg/dL 8.5-10.1 [facility] Work Phone: Serum or plasma creatinine m easurement (mass/volume)on 10-31-2021 Creatinine [Mass/Vol] 0.50 mg/dL 0.55-1.02 [facility] Work Phone: Comment on above: The validity of the calculated GFR & GFRAA in patients over 70 years has not been determined. Clinical correlation is essential. Serum or plasma urea nitroge n measurement (mass/volume)on 10-31-2021 Urea nitrogen [Mass/Vol] 7 mg/dL 7-18 [facility] Work Phone: Thin prep Papanicolaou smear with manual screeningon 10-31-2021 Thin prep Papanicolaou smear with manual screening 10 5-15 [facility] Work Phone: CT BRAIN WO IVCONon 10-31-19 [facility] Basophil percentageon 2021 Chloride [Moles/Vol] 98 mmol/L 98-107 [facility] Work Phone: Glucose [Mass/Vol] 150 mg/dL 74-106 [facility] Work Phone: Comment on above: Fasting Glucose resu lt greater than or equal to 126 mg/dL suggests DIABETES MELLITUS per A.D.A. criteria. Potassium [Moles/Vol] 3.2 mmol/L 3.5-5.1 [facility] Work Phone: Sodium [Moles/Vol] 136 mmol/L 136-145 [facility] Work Phone: Laboratory - Chemistry and C hemistry - challengeon 10-27-2021 CO2 [Moles/Vol] 31.0 mmol/L 21.0-32.0 [facility] Work Phone: Urea nitrogen/Creatinine [Mass ratio] 7.4 mg/mg 10-20 [facility] Work Phone: No Panel Informationon 10-27 Estimated GFR (MDRD) Amer 143 mL/min >60 [facility] Work Phone: Comment on above: GFR Calc Estimated GFR (MDRD) Non-Af Amer 118 mL/min >60 [facility] Work Phone: Comment on above: Non- GFR Calc Serum or plasma calcium rajni urement (mass/volume)on 10-27-2021 Calcium [Mass/Vol] 7.1 mg/dL 8.5-10.1 [facility] Work Phone: Serum or plasma creatinine m easurement (mass/volume)on 10-27-2021 Creatinine [Mass/Vol] 0.54 mg/dL 0.55-1.02 [facility] Work Phone: Comment on above: The validity of the calculated GFR & GFRAA in patients over 70 years has not been determined. Clinical correlation is essential. Serum or plasma urea nitroge n measurement (mass/volume)on 10-27-2021 Urea nitrogen [Mass/Vol] 4 mg/dL 7-18 [facility] Work Phone: Thin prep Papanicolaou smear with manual screeningon 10-27-2021 Thin prep Papanicolaou smear with manual screening 7 - [facility] Work Phone: Basophil percentageon 2021 Chloride [Moles/Vol] 95 mmol/L 98-107 [facility] Work Phone: Glucose [Mass/Vol] 90 mg/dL 74-106 [facility] Work Phone: Potassium [Moles/Vol] 3.4 mmol/L 3.5-5.1 [facility] Work Phone: Sodium [Moles/Vol] 130 mmol/L 136-145 [facility] Work Phone: [phone] WBC (Bld) [#/Vol] 12.7 10*3/uL 4.4-11.0 [facility] Work Phone: Blood erythrocytes count (nu mber/volume)on 10-24-2021 RBC (Bld) [#/Vol] 2.63 10*6/uL 4.2-5.4 [facility] Work Phone: [phone] Blood hemoglobin measurement (mass/volume)on 10-24-2021 Hemoglobin (Bld) [Mass/Vol] 8.3 g/dL 12.0-15.0 [facility] Work Phone: [phone] Blood platelet mean volumeon 10-24-2021 Platelet mean volume (Bld) [Entitic vol] 9.4 fL 6.2-12.0 [facility] Work Phone: [phone] Determination of erythrocyte mean corpuscular volume (MCV)on 10-24-2021 MCV (RBC) [Entitic vol] 93.9 fL 81-99 [facility] Work Phone: [phone] Hematocrit Auto (Bld) [Volum e fraction]on 10-24-2021 Hematocrit (Bld) [Volume fraction] 24.7 % 37-47 [facility] Work Phone: [phone] Laboratory - Chemistry and C hemistry - challengeon 10-24-2021 CO2 [Moles/Vol] 27.0 mmol/L 21.0-32.0 [facility] Work Phone: [phone] Urea nitrogen/Creatinine [Mass ratio] 25.4 mg/mg 10-20 [facility] Work Phone: [phone] Laboratory - Hematology and Cell countson 10-24-2021 Erythrocyte distribution width (RBC) [Entitic vol] 47.5 fL 35.1-43.9 [facility] Work Phone: [phone] Erythrocyte distribution width (RBC) [Ratio] 13.9 % 11.6-14.6 [facility] Work Phone: [phone] MCH (RBC) [Entitic mass] 31.6 pg 27.0-32.0 [facility] Work Phone: [phone] MCHC Auto (RBC) [Mass/Vol]on 10-24-2021 MCHC (RBC) [Mass/Vol] 33.6 g/dL 32-36 [facility] Work Phone: [phone] No Panel Informationon 10-24 Estimated GFR (MDRD) Amer 230 mL/min >60 [facility] Work Phone: [phone] Comment on above: GFR Calc Estimated GFR (MDRD) Non-Af Amer 190 mL/min >60 [facility] Work Phone: [phone] Comment on above: Non- GFR Calc Platelets bldon 10-24-2021 Platelets (Bld) [#/Vol] 529 10*3/uL 150-450 [facility] Work Phone: Serum or plasma calcium rajni urement (mass/volume)on 10-24-2021 Calcium [Mass/Vol] 7.9 mg/dL 8.5-10.1 [facility] Work Phone: Serum or plasma creatinine m easurement (mass/volume)on 10-24-2021 Creatinine [Mass/Vol] 0.35 mg/dL 0.55-1.02 [facility] Work Phone: Comment on above: The validity of the calculated GFR & GFRAA in patients over 70 years has not been determined. Clinical correlation is essential. Serum or plasma urea nitroge n measurement (mass/volume)on 10-24-2021 Urea nitrogen [Mass/Vol] 9 mg/dL 7-18 [facility] Work Phone: Thin prep Papanicolaou smear with manual screeningon 10-24-2021 Thin prep Papanicolaou smear with manual screening 8 5-15 [facility] Work Phone: CNPNon 10-20-[address] [facility] ALLIED HEALTHon 10-17-[address] [facility] Basic metabolic 2000 panelon 10-17-2021 Anion gap [Moles/Vol] 12 mmol/L Normal 9-18 [facility] Comment on above: Order Comment: Speci men Type: BLOOD SPECIMENOrdering Facility: [facility] Address: [address] [place] [address] Performed By: #### 2 4321-2 ####[facility]ORATORYCLIA [id number] [place] [address] [place] Calcium [Mass/Vol] 6.5 mg/dL Low 8.5-10.2 [facility] Comment on above: Order Comment: Speci men Type: BLOOD SPECIMENOrdering Facility: [facility] Address: [address] [place] [address] Performed By: #### 2 4321-2 ####[facility]ORATORYCLIA [id number] [place] [address] [place] Chloride [Moles/Vol] 95 mmol/L Low 97-105 [facility] Comment on above: Order Comment: Speci men Type: BLOOD SPECIMENOrdering Facility: [facility] Address: [address] [place] [address] Performed By: #### 2 4321-2 ####[facility]ORATORYCLIA [id number] [address] STATES OF [facility] CO2 [Moles/Vol] 25 mmol/L Normal 22-30 [facility] Comment on above: Order Comment: Speci men Type: BLOOD SPECIMENOrdering Facility: [facility] Address: [address] [place] [address] Performed By: #### 2 4321-2 ####[facility]ITAL[facility] [id number] [address] Creatinine [Mass/Vol] 0.44 mg/dL Low 0.58-0.96 [facility] Comment on above: Order Comment: Speci men Type: BLOOD SPECIMENOrdering Facility: [facility] Address: [address] [place] [address] Performed By: #### 2 4321-2 ####[facility]ORATORYCLIA [id number] [address] ESTIMATED GLOMERULAR FILTRATION RATE 102 mL/min/1.73m??? Normal >=60 [facility] Comment on above: Order Comment: Speci men Type: BLOOD SPECIMENOrdering Facility: [facility] Address: [address] [place] [address] Result Comment: Lulu mated Glomerular Filtration Rate [...] actual GFR. Performed By: #### 2 4321-2 ####[facility]ORATORYCLIA [id number] [place] [address] [place] Glucose [Mass/Vol] 122 mg/dL High 74-99 [facility] Comment on above: Order Comment: Sharath lozano Type: BLOOD SPECIMENOrdering Facility: [facility] Address: [address] [place] [address] Result Comment: The [place] [employer] (ADA) provides guidance for cutoff [...] Standards of Medical Care in Diabetes 2016, [place] [employer]. Diabetes Care. 2016.39(Suppl 1). Performed By: #### 2 4321-2 ####[facility]ATORYCLIA [id number] [place] [address] [place] Potassium [Moles/Vol] 3.7 mmol/L Normal 3.7-5.1 [facility] Comment on above: Order Comment: Sharath lozano Type: BLOOD SPECIMENOrdering Facility: [facility] Address: [address] [place] [address] Performed By: #### 2 4321-2 ####[facility]ATORYCLIA [id number] [place] [address] [place] Sodium [Moles/Vol] 132 mmol/L Low 136-144 [facility] Comment on above: Order Comment: Sharath men Type: BLOOD SPECIMENOrdering Facility: [facility] Address: [address] [place] [address] Performed By: #### 2 4321-2 ####[facility]ATORYCLIA [id number] [place] [address] [place] Urea nitrogen [Mass/Vol] 10 mg/dL Normal 7-21 [facility] Comment on above: Order Comment: Speci men Type: BLOOD SPECIMENOrdering Facility: [facility] Address: [address] [place] [address] Performed By: #### 2 4321-2 ####[facility]ORATORYCLIA [id number] [address] [place] CASE MANAGEMon 10-17-[address] [facility] CASE MANAGEM Normal [facility] CBC panel Auto (Bld)on 10-17 Erythrocyte distribution width (RBC) [Ratio] 13.6 % Normal 11.5-15.0 [facility] Comment on above: Order Comment: Speci men Type: BLOOD SPECIMENOrdering Facility: [facility] Address: [address] [place] [address] Performed By: #### 5 8410-2 ####[facility]ORATORYCLIA [id number] [address] [place] Hematocrit (Bld) [Volume fraction] 25.2 % Low 36.0-46.0 [facility] Comment on above: Order Comment: Speci men Type: BLOOD SPECIMENOrdering Facility: [facility] Address: [address] [place] [address] Performed By: #### 5 8410-2 ####[facility]ORATORYCLIA [id number] [address] [place] Hemoglobin (Bld) [Mass/Vol] 8.6 g/dL Low 11.5-15.5 [facility] Comment on above: Order Comment: Speci men Type: BLOOD SPECIMENOrdering Facility: [facility] Address: [address] [place] [address] Performed By: #### 5 8410-2 ####[facility]ORATORYCLIA [id number] [address] [place] MCH (RBC) [Entitic mass] 32.2 pg Normal 26.0-34.0 [facility] Comment on above: Order Comment: Speci men Type: BLOOD SPECIMENOrdering Facility: [facility] Address: [address] [place] [address] Performed By: #### 5 8410-2 ####[facility]ORATORYCLIA [id number] [address] MCHC (RBC) [Mass/Vol] 34.1 g/dL Normal 30.5-36.0 [facility] Comment on above: Order Comment: Speci men Type: BLOOD SPECIMENOrdering Facility: [facility] Address: [address] [place] [address] Performed By: #### 5 8410-2 ####[facility]ATORYCLIA [id number] [address] MCV (RBC) [Entitic vol] 94.4 fL Normal 80.0-100.0 [facility] Comment on above: Order Comment: Speci men Type: BLOOD SPECIMENOrdering Facility: [facility] Address: [address] [place] [address] Performed By: #### 5 8410-2 ####[facility]ATORYCLIA [id number] [address] Nucleated RBC (Bld) [#/Vol] 10*3/uL Normal <0.01 [facility] Comment on above: Order Comment: Speci men Type: BLOOD SPECIMENOrdering Facility: [facility] Address: [address] [place] [address] Performed By: #### 5 8410-2 ####[facility]ATORYCLIA [id number] [address] Platelet mean volume (Bld) [Entitic vol] 8.9 fL Low 9.0-12.7 [facility] Comment on above: Order Comment: Speci men Type: BLOOD SPECIMENOrdering Facility: [facility] Address: [address] [place] [address] Performed By: #### 5 8410-2 ####[facility]ATORYCLIA [id number] [address] [place] Platelets (Bld) [#/Vol] 519 10*3/uL High 150-400 [facility] Comment on above: Order Comment: Speci men Type: BLOOD SPECIMENOrdering Facility: [facility] Address: [address] [place] [address] Performed By: #### 5 8410-2 ####[facility]ATORYCLIA [id number] [place] [address] [place] RBC (Bld) [#/Vol] 2.67 10*6/uL Low 3.90-5.20 [facility] Comment on above: Order Comment: Speci men Type: BLOOD SPECIMENOrdering Facility: [facility] Address: [address] [place] [address] Performed By: #### 5 8410-2 ####[facility]ATORYCLIA [id number] [address] [place] [facility] WBC (Bld) [#/Vol] 19.03 10*3/uL High 3.70-11.00 [facility] Comment on above: Order Comment: Speci men Type: BLOOD SPECIMENOrdering Facility: [facility] Address: [address] [place] [address] Performed By: #### 5 8410-2 ####[facility]ORATORYCLIA [id number] [address] [place] CNDSon 10-17-[address] [facility] SARS-CoV-2 RNA Resp Ql LEONA+p robeon 10-17-2021 SARS-CoV-2 (COVID-19) RNA LEONA+probe Ql (Resp) COVID 19 RESULT: SARS-CoV-2 (Agent of COVID-19) Not Detected by RT-PCR or equivalent method. This test has been authorized by FDA under an Emergency Use Authorization (EUA). Normal [facility] Comment on above: Performed By: #### 9 4500-6 ####[facility]ATORYCLIA [id number] [address] [place] XR CHEST 1V FRONTALon 2021 XR CHEST 1V FRONTAL Normal [facility] Basic metabolic 2000 panelon 10-16-2021 Anion gap [Moles/Vol] 11 mmol/L Normal 9-18 [facility] Comment on above: Order Comment: Speci men Type: BLOOD SPECIMENOrdering Facility: [facility] Address: [address] [place] [address] Performed By: #### 2 4321-2 ####[facility]ORATORYCLIA [id number] [place] [address] [place] Calcium [Mass/Vol] 7.0 mg/dL Low 8.5-10.2 [facility] Comment on above: Order Comment: Speci men Type: BLOOD SPECIMENOrdering Facility: [facility] Address: [address] [place] [address] Performed By: #### 2 4321-2 ####[facility]ATORYCLIA [id number] [place] [address] [place] Chloride [Moles/Vol] 95 mmol/L Low 97-105 [facility] Comment on above: Order Comment: Speci men Type: BLOOD SPECIMENOrdering Facility: [facility] Address: [address] [place] [address] Performed By: #### 2 4321-2 ####[facility]ORATORYCLIA [id number] [place] [address] [place] CO2 [Moles/Vol] 26 mmol/L Normal 22-30 [facility] Comment on above: Order Comment: Speci men Type: BLOOD SPECIMENOrdering Facility: [facility] Address: [address] [place] [address] Performed By: #### 2 4321-2 ####[facility] LABORATORYCLIA [id number] [place] [address] [place] Creatinine [Mass/Vol] 0.38 mg/dL Low 0.58-0.96 [facility] Comment on above: Order Comment: Speci men Type: BLOOD SPECIMENOrdering Facility: [facility] Address: [address] [place] [address] Performed By: #### 2 4321-2 ####[facility] LABORATORYCLIA [id number] [place] [address] [place] ESTIMATED GLOMERULAR FILTRATION RATE 105 mL/min/1.73m??? Normal >=60 [facility] Comment on above: Order Comment: Sharath lozano Type: BLOOD SPECIMENOrdering Facility: [facility] Address: [address] [place] [address] Result Comment: Lluu mated Glomerular Filtration Rate (eGFR) is calculated [...] By: #### 2 4321-2 ####[facility] HOSPITALIA [id number] [place] [address] [place] Glucose [Mass/Vol] 120 mg/dL High 74-99 [facility] Comment on above: Order Comment: Speci marta Type: BLOOD SPECIMENOrdering Facility: [facility] Address: [address] [place] [address] Result Comment: The [place] [employer] (ADA) provides guidance for cutoff [...] Standards of Medical Care in Diabetes 2016, [place] [employer]. Diabetes Care. 2016.39(Suppl 1). Performed By: #### 2 4321-2 ####[facility] LABORATORYCLIA [id number] [place] [id number] [place] Potassium [Moles/Vol] 3.6 mmol/L Low 3.7-5.1 [facility] Comment on above: Order Comment: Speci men Type: BLOOD SPECIMENOrdering Facility: [facility] Address: [address] [place] [address] Performed By: #### 2 4321-2 ####[facility] LABORATORYCLIA [id number] [address] STATES [facility] Sodium [Moles/Vol] 132 mmol/L Low 136-144 [facility] Comment on above: Order Comment: Speci men Type: BLOOD SPECIMENOrdering Facility: [facility] Address: [address] [place] [address] Performed By: #### 2 4321-2 ####[facility] LABORATORYCLIA [id number] [address] STATES [facility] Urea nitrogen [Mass/Vol] 11 mg/dL Normal 7-21 [facility] Comment on above: Order Comment: Speci men Type: BLOOD SPECIMENOrdering Facility: [facility] Address: [address] [place] [address] Performed By: #### 2 4321-2 ####[facility] LABORATORYCLIA [id number] [address] CASE MANAGEMon 10-16-[address] [facility] CASE MANAGEM Normal [facility] CBC panel Auto (Bld)on 10-16 Erythrocyte distribution width (RBC) [Ratio] 13.6 % Normal 11.5-15.0 [facility] Comment on above: Order Comment: Speci men Type: BLOOD SPECIMENOrdering Facility: [facility] Address: [address] [place] [address] Performed By: #### 5 8410-2 ####[facility] LABORATORYCLIA [id number] [address] STATES [facility] Hematocrit (Bld) [Volume fraction] 25.6 % Low 36.0-46.0 [facility] Comment on above: Order Comment: Speci men Type: BLOOD SPECIMENOrdering Facility: [facility] Address: [address] [place] [address] Performed By: #### 5 8410-2 ####[facility] LABORATORYCLIA [id number] [address] Hemoglobin (Bld) [Mass/Vol] 8.7 g/dL Low 11.5-15.5 [facility] Comment on above: Order Comment: Speci men Type: BLOOD SPECIMENOrdering Facility: [facility] Address: [address] [place] [address] Performed By: #### 5 8410-2 ####[facility] LABORATORYCLIA [id number] [address] MCH (RBC) [Entitic mass] 32.0 pg Normal 26.0-34.0 [facility] Comment on above: Order Comment: Speci men Type: BLOOD SPECIMENOrdering Facility: [facility] Address: [address] [place] [address] Performed By: #### 5 8410-2 ####[facility] LABORATORYCLIA [id number] [address] MCHC (RBC) [Mass/Vol] 34.0 g/dL Normal 30.5-36.0 [facility] Comment on above: Order Comment: Speci men Type: BLOOD SPECIMENOrdering Facility: [facility] Address: [address] [place] [address] Performed By: #### 5 8410-2 ####[facility] LABORATORYCLIA [id number] [address] MCV (RBC) [Entitic vol] 94.1 fL Normal 80.0-100.0 [facility] Comment on above: Order Comment: Speci men Type: BLOOD SPECIMENOrdering Facility: [facility] Address: [address] [place] [address] Performed By: #### 5 8410-2 ####[facility] LABORATORYCLIA [id number] [address] Nucleated RBC (Bld) [#/Vol] 10*3/uL Normal <0.01 [facility] Comment on above: Order Comment: Speci men Type: BLOOD SPECIMENOrdering Facility: [facility] Address: [address] [place] [address] Performed By: #### 5 8410-2 ####[facility] LABORATORYCLIA [id number] [address] [place] Platelet mean volume (Bld) [Entitic vol] 8.8 fL Low 9.0-12.7 [facility] Comment on above: Order Comment: Speci men Type: BLOOD SPECIMENOrdering Facility: [facility] Address: [address] [place] [address] Performed By: #### 5 8410-2 ####[facility] LABORATORYCLIA [id number] [address] [place] Platelets (Bld) [#/Vol] 465 10*3/uL High 150-400 [facility] Comment on above: Order Comment: Speci men Type: BLOOD SPECIMENOrdering Facility: [facility] Address: [address] [place] [address] Performed By: #### 5 8410-2 ####[facility] LABORATORYCLIA [id number] [address] [place] RBC (Bld) [#/Vol] 2.72 10*6/uL Low 3.90-5.20 [facility] Comment on above: Order Comment: Speci men Type: BLOOD SPECIMENOrdering Facility: [facility] Address: [address] [place], [place] [address] Performed By: #### 5 8410-2 ####[facility] LABORATORYCLIA [id number] [address] [place] WBC (Bld) [#/Vol] 17.77 10*3/uL High 3.70-11.00 [facility] Comment on above: Order Comment: Speci men Type: BLOOD SPECIMENOrdering Facility: [facility] Address: [address] [place] [address] Performed By: #### 5 8410-2 ####[facility] LABORATORYCLIA [id number] [place] [address] [place] CONSULT PROGon 10-16-[address] [facility] THERAPY NTon 10-16-[address] [facility] THERAPY NT Normal [facility] Basic metabolic 2000 panelon 10-15-2021 Anion gap [Moles/Vol] 11 mmol/L Normal 9-18 [facility] Comment on above: Order Comment: Speci men Type: BLOOD SPECIMENOrdering Facility: [facility] Address: [address] [place] [address] Performed By: #### 2 4321-2 ####[facility] LABORATORYCLIA [id number] [place] [address] [place] Calcium [Mass/Vol] 6.8 mg/dL Low 8.5-10.2 [facility] Comment on above: Order Comment: Speci men Type: BLOOD SPECIMENOrdering Facility: [facility] Address: [address] [place] [address] Performed By: #### 2 4321-2 ####[facility] LABORATORYCLIA [id number] [place] [address] [place] Chloride [Moles/Vol] 97 mmol/L Normal 97-105 [facility] Comment on above: Order Comment: Speci men Type: BLOOD SPECIMENOrdering Facility: [facility] Address: [address] [place] [address] Performed By: #### 2 4321-2 ####[facility] LABORATORYCLIA [id number] [place] [address] [place] CO2 [Moles/Vol] 26 mmol/L Normal 22-30 [facility] Comment on above: Order Comment: Speci men Type: BLOOD SPECIMENOrdering Facility: [facility] Address: [address] [place] [address] Performed By: #### 2 4321-2 ####[facility] LABORATORYCLIA [id number] [address] STATES [facility] Creatinine [Mass/Vol] 0.44 mg/dL Low 0.58-0.96 [facility] Comment on above: Order Comment: Sharath lozano Type: BLOOD SPECIMENOrdering Facility: [facility] Address: [address] [place] [address] Performed By: #### 2 4321-2 ####[facility] LABORATORYCLIA [id number] [address] ESTIMATED GLOMERULAR FILTRATION RATE 102 mL/min/1.73m??? Normal >=60 [facility] Comment on above: Order Comment: Sharath lozano Type: BLOOD SPECIMENOrdering Facility: [facility] Address: [address] [place] [address] Result Comment: Lulu mated Glomerular Filtration Rate [...] actual GFR. Performed By: #### 2 4321-2 ####[facility] LABORATORYCLIA [id number] [address] OF [facility] Glucose [Mass/Vol] 111 mg/dL High 74-99 [facility] Comment on above: Order Comment: Sharath lozano Type: BLOOD SPECIMENOrdering Facility: [facility] Address: [address] [place] [address] Result Comment: The [place] [employer] (ADA) provides guidance for cutoff [...] Standards of Medical Care in Diabetes 2016, [place] [employer]. Diabetes Care. 2016.39(Suppl 1). Performed By: #### 2 4321-2 ####[facility] LABORATORYCLIA [id number] [address] Potassium [Moles/Vol] 3.5 mmol/L Low 3.7-5.1 [facility] Comment on above: Order Comment: Speci men Type: BLOOD SPECIMENOrdering Facility: [facility] Address: [address] [place] [address] Performed By: #### 2 4321-2 ####[facility] LABORATORYCLIA [id number] [address] Sodium [Moles/Vol] 134 mmol/L Low 136-144 [facility] Comment on above: Order Comment: Speci men Type: BLOOD SPECIMENOrdering Facility: [facility] Address: [address] [place] [address] Performed By: #### 2 4321-2 ####[facility] LABORATORYCLIA [id number] [address] Urea nitrogen [Mass/Vol] 11 mg/dL Normal 7-21 [facility] Comment on above: Order Comment: Speci men Type: BLOOD SPECIMENOrdering Facility: [facility] Address: [address] [place] [address] Performed By: #### 2 4321-2 ####[facility] LABORATORYCLIA [id number] [address] CBC panel Auto (Bld)on 10-15 Erythrocyte distribution width (RBC) [Ratio] 13.6 % Normal 11.5-15.0 [facility] Comment on above: Order Comment: Speci men Type: BLOOD SPECIMENOrdering Facility: [facility] Address: [address] [place] [address] Performed By: #### 5 8410-2 ####[facility] LABORATORYCLIA [id number] [address] Hematocrit (Bld) [Volume fraction] 23.5 % Low 36.0-46.0 [facility] Comment on above: Order Comment: Speci men Type: BLOOD SPECIMENOrdering Facility: [facility] Address: [address] [place] [address] Performed By: #### 5 8410-2 ####[facility] LABORATORYCLIA [id number] [address] OF [facility] Hemoglobin (Bld) [Mass/Vol] 7.9 g/dL Low 11.5-15.5 [facility] Comment on above: Order Comment: Speci men Type: BLOOD SPECIMENOrdering Facility: [facility] Address: [address] [place] [address] Performed By: #### 5 8410-2 ####[facility] LABORATORYCLIA [id number] [address] MCH (RBC) [Entitic mass] 32.6 pg Normal 26.0-34.0 [facility] Comment on above: Order Comment: Speci men Type: BLOOD SPECIMENOrdering Facility: [facility] Address: [address] [place] [address] Performed By: #### 5 8410-2 ####[facility] LABORATORYCLIA [id number] [address] [place] [facility] MCHC (RBC) [Mass/Vol] 33.6 g/dL Normal 30.5-36.0 [facility] Comment on above: Order Comment: Speci men Type: BLOOD SPECIMENOrdering Facility: [facility] Address: [address] [place] [address] Performed By: #### 5 8410-2 ####[facility] LABORATORYCLIA [id number] [address] MCV (RBC) [Entitic vol] 97.1 fL Normal 80.0-100.0 [facility] Comment on above: Order Comment: Speci men Type: BLOOD SPECIMENOrdering Facility: [facility] Address: [address] [place] [address] Performed By: #### 5 8410-2 ####[facility] LABORATORYCLIA [id number] [address] Nucleated RBC (Bld) [#/Vol] 10*3/uL Normal <0.01 [facility] Comment on above: Order Comment: Speci men Type: BLOOD SPECIMENOrdering Facility: [facility] Address: [address] [place] [address] Performed By: #### 5 8410-2 ####[facility] LABORATORYCLIA [id number] [address] [place] Platelet mean volume (Bld) [Entitic vol] 8.9 fL Low 9.0-12.7 [facility] Comment on above: Order Comment: Speci men Type: BLOOD SPECIMENOrdering Facility: [facility] Address: [address] [place] [address] Performed By: #### 5 8410-2 ####[facility] LABORATORYCLIA [id number] [address] Platelets (Bld) [#/Vol] 388 10*3/uL Normal 150-400 [facility] Comment on above: Order Comment: Speci men Type: BLOOD SPECIMENOrdering Facility: [facility] Address: [address] [place] [address] Performed By: #### 5 8410-2 ####[facility] LABORATORYCLIA [id number] [address] RBC (Bld) [#/Vol] 2.42 10*6/uL Low 3.90-5.20 [facility] Comment on above: Order Comment: Speci men Type: BLOOD SPECIMENOrdering Facility: [facility] Address: [address] [place] [address] Performed By: #### 5 8410-2 ####[facility] LABORATORYCLIA [id number] [address] [place] WBC (Bld) [#/Vol] 16.58 10*3/uL High 3.70-11.00 [facility] Comment on above: Order Comment: Speci men Type: BLOOD SPECIMENOrdering Facility: [facility] Address: [address] [place] [address] Performed By: #### 5 8410-2 ####[facility] LABORATORYCLIA [id number] [address] THERAPY NTon 10-15-[address] [facility] Urinalysis complete panel (U )on 10-15-2021 Bacteria LM.HPF (Urine sed) [#/Area] Few Abnormal None Seen [facility] Comment on above: Order Comment: Speci men Type: URINE SPECIMENOrdering Facility: [facility] Address: [address] [place] [address] Performed By: #### 2 4356-8 ####[facility] LABORATORYCLIA [id number] [address] Bilirubin Ql (U) Negative Normal Negative [facility] Comment on above: Order Comment: Speci men Type: URINE SPECIMENOrdering Facility: [facility] Address: [address] [place] [address] Performed By: #### 2 4356-8 ####[facility] LABORATORYCLIA [id number] [address] Clarity (Unsp spec) Clear Normal Clear [facility] Comment on above: Order Comment: Speci men Type: URINE SPECIMENOrdering Facility: [facility] Address: [address] [place] [address] Performed By: #### 2 4356-8 ####[facility] LABORATORYCLIA [id number] [address] Color (U) Light Yellow Normal yellow [facility] Comment on above: Order Comment: Speci men Type: URINE SPECIMENOrdering Facility: [facility] Address: [address] [place] [address] Performed By: #### 2 4356-8 ####[facility] LABORATORYCLIA [id number] [address] Epithelial cells LM.HPF (Urine sed) [#/Area] Few Normal [facility] Comment on above: Order Comment: Speci men Type: URINE SPECIMENOrdering Facility: [facility] Address: [address] [place] [address] Result Comment: Few Performed By: #### 2 4356-8 ####[facility] LABORATORYCLIA [id number] [address] Glucose Test strip (U) [Mass/Vol] Negative Normal Negative [facility] Comment on above: Order Comment: Speci men Type: URINE SPECIMENOrdering Facility: [facility] Address: [address] [place] [address] Performed By: #### 2 4356-8 ####[facility] LABORATORYCLIA [id number] [address] Hemoglobin Ql (U) Negative Normal Negative [facility] Comment on above: Order Comment: Speci men Type: URINE SPECIMENOrdering Facility: [facility] Address: [address] [place] [address] Performed By: #### 2 4356-8 ####[facility] LABORATORYCLIA [id number] [address] Ketones Ql (U) Negative Normal Negative [facility] Comment on above: Order Comment: Speci men Type: URINE SPECIMENOrdering Facility: [facility] Address: [address] [place] [address] Performed By: #### 2 4356-8 ####[facility] LABORATORYCLIA [id number] [address] Leukocyte esterase Test strip Ql (U) 500 Karson/mL Abnormal Negative [facility] Comment on above: Order Comment: Speci men Type: URINE SPECIMENOrdering Facility: [facility] Address: [address] [address] Performed By: #### 2 4356-8 ####[facility] LABORATORYCLIA [id number] [address] [place] Nitrite Ql (U) 1+ Abnormal Negative [facility] Comment on above: Order Comment: Speci men Type: URINE SPECIMENOrdering Facility: [facility] Address: [address] [place] [address] Performed By: #### 2 4356-8 ####[facility] LABORATORYCLIA [id number] [address] [place] pH (U) 7.5 [pH] Normal 5.0-8.0 [facility] Comment on above: Order Comment: Speci men Type: URINE SPECIMENOrdering Facility: [facility] Address: [address] [place] [address] Performed By: #### 2 4356-8 ####[facility] LABORATORYCLIA [id number] [address] Protein (U) [Mass/Vol] Negative Normal Negative [facility] Comment on above: Order Comment: Speci men Type: URINE SPECIMENOrdering Facility: [facility] Address: [address] [place] [address] Performed By: #### 2 4356-8 ####[facility] LABORATORYCLIA [id number] [address] RBC LM.HPF (Urine sed) [#/Area] 6-10 /HPF Abnormal 0-3 /HPF [facility] Comment on above: Order Comment: Speci men Type: URINE SPECIMENOrdering Facility: [facility] Address: [address] [place] [address] Performed By: #### 2 4356-8 ####[facility] LABORATORYCLIA [id number] [address] Specific gravity (U) [Rel density] 1.007 Normal 1.005-1.030 [facility] Comment on above: Order Comment: Speci men Type: URINE SPECIMENOrdering Facility: [facility] Address: [address] [place] [address] Performed By: #### 2 4356-8 ####[facility] LABORATORYCLIA [id number] [address] Urobilinogen Ql (U) Normal Normal Negative [facility] Comment on above: Order Comment: Speci men Type: URINE SPECIMENOrdering Facility: [facility] Address: [address] [place] [address] Performed By: #### 2 4356-8 ####[facility] LABORATORYCLIA [id number] [address] STATES [facility] WBC LM.HPF (Urine sed) [#/Area] /[HPF] Abnormal 0-5 /HPF [facility] Comment on above: Order Comment: Speci men Type: URINE SPECIMENOrdering Facility: [facility] Address: [address] [place] [address] Performed By: #### 2 4356-8 ####[facility] LABORATORYCLIA [id number] [address] Urinalysis complete pnl Uron 10-15-2021 Urinalysis complete panel (U) Abnormal [facility] Comment on above: Order Comment: Speci men Type: URINE SPECIMENOrdering Facility: [facility] Address: [address] [place] [address] Performed By: #### 2 4356-8 ####[facility] LABORATORYCLIA [id number] [address] [place] Basic metabolic 2000 panelon 10-14-2021 Anion gap [Moles/Vol] 11 mmol/L Normal 9-18 [facility] Comment on above: Order Comment: Speci men Type: BLOOD SPECIMENOrdering Facility: [facility] Address: [address] [place] [address] Performed By: #### 2 4321-2 ####[facility] LABORATORYCLIA [id number] [address] [place] Calcium [Mass/Vol] 7.1 mg/dL Low 8.5-10.2 [facility] Comment on above: Order Comment: Speci men Type: BLOOD SPECIMENOrdering Facility: [facility] Address: [address] [address] Performed By: #### 2 4321-2 ####[facility] LABORATORYCLIA [id number] [address] [place] Chloride [Moles/Vol] 100 mmol/L Normal 97-105 [facility] Comment on above: Order Comment: Speci men Type: BLOOD SPECIMENOrdering Facility: [facility] Address: [address] [place] [address] Performed By: #### 2 4321-2 ####[facility] LABORATORYCLIA [id number] [address] [place] CO2 [Moles/Vol] 25 mmol/L Normal 22-30 [facility] Comment on above: Order Comment: Speci men Type: BLOOD SPECIMENOrdering Facility: [facility] Address: [address] [place] [address] Performed By: #### 2 4321-2 ####[facility] LABORATORYCLIA [id number] [address] [place] Creatinine [Mass/Vol] 0.44 mg/dL Low 0.58-0.96 [facility] Comment on above: Order Comment: Speci men Type: BLOOD SPECIMENOrdering Facility: [facility] Address: [address] [place] [address] Performed By: #### 2 4321-2 ####[facility] LABORATORYCLIA [id number] [address] ESTIMATED GLOMERULAR FILTRATION RATE 102 mL/min/1.73m??? Normal >=60 [facility] Comment on above: Order Comment: Speci men Type: BLOOD SPECIMENOrdering Facility: [facility] Address: [address] [place] [address] Result Comment: Lulu mated Glomerular Filtration Rate [...] actual GFR. Performed By: #### 2 4321-2 ####[facility] LABORATORYCLIA [id number] [place] [address] [place] Glucose [Mass/Vol] 116 mg/dL High 74-99 [facility] Comment on above: Order Comment: Sharath lozano Type: BLOOD SPECIMENOrdering Facility: [facility] Address: [address] [place], [place] [address] Result Comment: The [place] [employer] (ADA) provides guidance for cutoff [...] Standards of Medical Care in Diabetes 2016, [place] [employer]. Diabetes Care. 2016.39(Suppl 1). Performed By: #### 2 4321-2 ####[facility] LABORATORYCLIA [id number] [place] [address] [place] Potassium [Moles/Vol] 3.8 mmol/L Normal 3.7-5.1 [facility] Comment on above: Order Comment: Sharath lozano Type: BLOOD SPECIMENOrdering Facility: [facility] Address: [address] [place] [address] Performed By: #### 2 4321-2 ####[facility] LABORATORYCLIA [id number] [place] [address] [place] Sodium [Moles/Vol] 136 mmol/L Normal 136-144 [facility] Comment on above: Order Comment: Sharath lozano Type: BLOOD SPECIMENOrdering Facility: [facility] Address: [address] [place] [address] Performed By: #### 2 4321-2 ####[facility] LABORATORYCLIA [id number] [address] STATES [facility] Urea nitrogen [Mass/Vol] 9 mg/dL Normal 7-21 [facility] Comment on above: Order Comment: Speci men Type: BLOOD SPECIMENOrdering Facility: [facility] Address: [address] [place] [address] Performed By: #### 2 4321-2 ####[facility] LABORATORYCLIA [id number] [address] STATES [facility] CBC panel Auto (Bld)on 10-14 Erythrocyte distribution width (RBC) [Ratio] 13.7 % Normal 11.5-15.0 [facility] Comment on above: Order Comment: Speci men Type: BLOOD SPECIMENOrdering Facility: [facility] Address: [address] [place] [address] Performed By: #### 5 8410-2 ####[facility] LABORATORYCLIA [id number] [address] [place] Hematocrit (Bld) [Volume fraction] 25.1 % Low 36.0-46.0 [facility] Comment on above: Order Comment: Speci men Type: BLOOD SPECIMENOrdering Facility: [facility] Address: [address] [place] [address] Performed By: #### 5 8410-2 ####[facility] LABORATORYCLIA [id number] [address] [place] Hemoglobin (Bld) [Mass/Vol] 8.4 g/dL Low 11.5-15.5 [facility] Comment on above: Order Comment: Speci men Type: BLOOD SPECIMENOrdering Facility: [facility] Address: [address] [place] [address] Performed By: #### 5 8410-2 ####[facility] LABORATORYCLIA [id number] [address] [place] MCH (RBC) [Entitic mass] 32.3 pg Normal 26.0-34.0 [facility] Comment on above: Order Comment: Speci men Type: BLOOD SPECIMENOrdering Facility: [facility] Address: [address] [place] [address] Performed By: #### 5 8410-2 ####[facility] LABORATORYCLIA [id number] [address] [place] MCHC (RBC) [Mass/Vol] 33.5 g/dL Normal 30.5-36.0 [facility] Comment on above: Order Comment: Speci men Type: BLOOD SPECIMENOrdering Facility: [facility] Address: [address] [place] [address] Performed By: #### 5 8410-2 ####[facility] LABORATORYCLIA [id number] [address] [place] MCV (RBC) [Entitic vol] 96.5 fL Normal 80.0-100.0 [facility] Comment on above: Order Comment: Speci men Type: BLOOD SPECIMENOrdering Facility: [facility] Address: [address] [place] [address] Performed By: #### 5 8410-2 ####[facility] LABORATORYCLIA [id number] [address] Nucleated RBC (Bld) [#/Vol] 10*3/uL Normal <0.01 [facility] Comment on above: Order Comment: Speci men Type: BLOOD SPECIMENOrdering Facility: [facility] Address: [address] [place] [address] Performed By: #### 5 8410-2 ####[facility]ORATORYCLIA [id number] [address] Platelet mean volume (Bld) [Entitic vol] 8.9 fL Low 9.0-12.7 [facility] Comment on above: Order Comment: Speci men Type: BLOOD SPECIMENOrdering Facility: [facility] Address: [address] [place] [address] Performed By: #### 5 8410-2 ####[facility]ATORYCLIA [id number] [address] Platelets (Bld) [#/Vol] 405 10*3/uL High 150-400 [facility] Comment on above: Order Comment: Speci men Type: BLOOD SPECIMENOrdering Facility: [facility] Address: [address] [place] [address] Performed By: #### 5 8410-2 ####[facility]ATORYCLIA [id number] [address] RBC (Bld) [#/Vol] 2.60 10*6/uL Low 3.90-5.20 [facility] Comment on above: Order Comment: Speci men Type: BLOOD SPECIMENOrdering Facility: [facility] Address: [address] [place] [address] Performed By: #### 5 8410-2 ####[facility]ATORYCLIA [id number] [address] WBC (Bld) [#/Vol] 16.86 10*3/uL High 3.70-11.00 [facility] Comment on above: Order Comment: Speci men Type: BLOOD SPECIMENOrdering Facility: [facility] Address: [address] [place] [address] Performed By: #### 5 8410-2 ####[facility]ATORYCLIA [id number] [address] TSH SerPl-aCncon 10-14-2021 TSH Qn 1.610 m[IU]/L Normal 0.270-4.200 [facility] Comment on above: Order Comment: Speci men Type: BLOOD SPECIMENOrdering Facility: [facility] Address: [address] [place] [address] Performed By: #### 3 016-3 ####[facility]ORYCLIA [id number] [address] Vit B12 SerPl-mCncon 022 Cobalamin (Vitamin B12) [Mass/Vol] 1299 pg/mL High 232-1,245 [facility] Comment on above: Order Comment: Speci men Type: BLOOD SPECIMENOrdering Facility: [facility] Address: [address] [place] [address] Performed By: #### 2 132-9 ####[facility]ATORYCLIA [id number] [place] [address] [place] ALLIED HEALTHon 10-13-[address] [facility] ALLIED HEALTH Normal [facility] ALLIED HEALTH Normal [facility] Basic metabolic 2000 panelon 10-13-2021 Anion gap [Moles/Vol] 11 mmol/L Normal 9-18 [facility] Comment on above: Order Comment: Speci men Type: BLOOD SPECIMENOrdering Facility: [facility] Address: [address] [place] [address] Performed By: #### 2 4321-2 ####[facility]ATORYCLIA [id number] [place] [address] [place] Calcium [Mass/Vol] 7.3 mg/dL Low 8.5-10.2 [facility] Comment on above: Order Comment: Speci men Type: BLOOD SPECIMENOrdering Facility: [facility] Address: [address] [place] [address] Performed By: #### 2 4321-2 ####[facility]ATORYCLIA [id number] [place] [address] [place] Chloride [Moles/Vol] 99 mmol/L Normal 97-105 [facility] Comment on above: Order Comment: Speci men Type: BLOOD SPECIMENOrdering Facility: [facility] Address: [address] [place] [address] Performed By: #### 2 4321-2 ####[facility]ATORYCLIA [id number] [place] [address] [place] CO2 [Moles/Vol] 24 mmol/L Normal 22-30 [facility] Comment on above: Order Comment: Sharath lozano Type: BLOOD SPECIMENOrdering Facility: [facility] Address: [address] [address] Performed By: #### 2 4321-2 ####[facility]ITALCLIA [id number] [address] [facility] Creatinine [Mass/Vol] 0.46 mg/dL Low 0.58-0.96 [facility] Comment on above: Order Comment: Specmoe lozano Type: BLOOD SPECIMENOrdering Facility: [facility] Address: [address] [place] [address] Performed By: #### 2 4321-2 ####[facility] HOSPITALIA [id number] [address] ESTIMATED GLOMERULAR FILTRATION RATE 101 mL/min/1.73m??? Normal >=60 [facility] Comment on above: Order Comment: Sharath lozano Type: BLOOD SPECIMENOrdering Facility: [facility] Address: [address] [place] [address] Result Comment: Lulu mated Glomerular Filtration Rate [...] actual GFR. Performed By: #### 2 4321-2 ####[facility]ORATORYIA [id number] [address] [facility] Glucose [Mass/Vol] 121 mg/dL High 74-99 [facility] Comment on above: Order Comment: Sharath lozano Type: BLOOD SPECIMENOrdering Facility: [facility] Address: [address] [address] Result Comment: The [place] [employer] (ADA) provides guidance for cutoff [...] Standards of Medical Care in Diabetes 2016, [place] [employer]. Diabetes Care. 2016.39(Suppl 1). Performed By: #### 2 4321-2 ####[facility]ATORYCLIA [id number] [address] Potassium [Moles/Vol] 3.6 mmol/L Low 3.7-5.1 [facility] Comment on above: Order Comment: Speci men Type: BLOOD SPECIMENOrdering Facility: [facility] Address: [address] [place] [address] Performed By: #### 2 4321-2 ####[facility]ATORYCLIA [id number] [address] STATES [facility] Sodium [Moles/Vol] 134 mmol/L Low 136-144 [facility] Comment on above: Order Comment: Speci men Type: BLOOD SPECIMENOrdering Facility: [facility] Address: [address] [place] [address] Performed By: #### 2 4321-2 ####[facility]ORYCLIA [id number] [address] Urea nitrogen [Mass/Vol] 9 mg/dL Normal 7-21 [facility] Comment on above: Order Comment: Speci men Type: BLOOD SPECIMENOrdering Facility: [facility] Address: [address] [place] [address] Performed By: #### 2 4321-2 ####[facility]ATORYCLIA [id number] [address] CASE MANAGEMon 10-13-[address] [facility] CBC panel Auto (Bld)on 10-13 Erythrocyte distribution width (RBC) [Ratio] 13.5 % Normal 11.5-15.0 [facility] Comment on above: Order Comment: Speci men Type: BLOOD SPECIMENOrdering Facility: [facility] Address: [address] [place] [address] Performed By: #### 5 8410-2 ####[facility]ATORYCLIA [id number] [address] [facility] Hematocrit (Bld) [Volume fraction] 25.6 % Low 36.0-46.0 [facility] Comment on above: Order Comment: Speci men Type: BLOOD SPECIMENOrdering Facility: [facility] Address: [address] [place] [address] Performed By: #### 5 8410-2 ####[facility]ATORYCLIA [id number] [address] Hemoglobin (Bld) [Mass/Vol] 8.4 g/dL Low 11.5-15.5 [facility] Comment on above: Order Comment: Speci men Type: BLOOD SPECIMENOrdering Facility: [facility] Address: [address] [place] [address] Performed By: #### 5 8410-2 ####[facility]ATORYCLIA [id number] [address] STATES [facility] MCH (RBC) [Entitic mass] 32.1 pg Normal 26.0-34.0 [facility] Comment on above: Order Comment: Speci men Type: BLOOD SPECIMENOrdering Facility: [facility] Address: [address] [place] [address] Performed By: #### 5 8410-2 ####[facility]ATORYCLIA [id number] [address] [place] MCHC (RBC) [Mass/Vol] 32.8 g/dL Normal 30.5-36.0 [facility] Comment on above: Order Comment: Speci men Type: BLOOD SPECIMENOrdering Facility: [facility] Address: [address] [place] [address] Performed By: #### 5 8410-2 ####[facility]ATORYCLIA [id number] [address] [place] MCV (RBC) [Entitic vol] 97.7 fL Normal 80.0-100.0 [facility] Comment on above: Order Comment: Speci men Type: BLOOD SPECIMENOrdering Facility: [facility] Address: [address] [place] [address] Performed By: #### 5 8410-2 ####[facility]ATORYCLIA [id number] [address] Nucleated RBC (Bld) [#/Vol] 10*3/uL Normal <0.01 [facility] Comment on above: Order Comment: Speci men Type: BLOOD SPECIMENOrdering Facility: [facility] Address: [address] [place] [address] Performed By: #### 5 8410-2 ####[facility]ORYCLIA [id number] [address] Platelet mean volume (Bld) [Entitic vol] 9.4 fL Normal 9.0-12.7 [facility] Comment on above: Order Comment: Speci men Type: BLOOD SPECIMENOrdering Facility: [facility] Address: [address] [place] [address] Performed By: #### 5 8410-2 ####[facility]ATORYCLIA [id number] [address] Platelets (Bld) [#/Vol] 387 10*3/uL Normal 150-400 [facility] Comment on above: Order Comment: Speci men Type: BLOOD SPECIMENOrdering Facility: [facility] Address: [address] [place] [address] Performed By: #### 5 8410-2 ####[facility]ATORYCLIA [id number] [address] [place] RBC (Bld) [#/Vol] 2.62 10*6/uL Low 3.90-5.20 [facility] Comment on above: Order Comment: Speci men Type: BLOOD SPECIMENOrdering Facility: [facility] Address: [address] [place] [address] Performed By: #### 5 8410-2 ####[facility]ATORYCLIA [id number] [place] [address] [place] WBC (Bld) [#/Vol] 16.34 10*3/uL High 3.70-11.00 [facility] Comment on above: Order Comment: Speci men Type: BLOOD SPECIMENOrdering Facility: [facility] Address: [address] [place] [address] Performed By: #### 5 8410-2 ####[facility]ATORYCLIA [id number] [address] [place] CONSULTon 10-13-[address] [facility] NUTRITIONon 10-13-[address] [facility] THERAPY NTon 10-13-[address] [facility] XR CHEST 1V FRONTALon 2021 XR CHEST 1V FRONTAL Normal [facility] XR CHEST 2V FRONTAL/LATon XR CHEST 2V FRONTAL/LAT Normal [facility] ALLIED HEALTHon 10-12-[address] [facility] Basic metabolic 2000 panelon 10-12-2021 Anion gap [Moles/Vol] 10 mmol/L Normal 9-18 [facility] Comment on above: Order Comment: Speci men Type: BLOOD SPECIMENOrdering Facility: [facility] Address: [address] [place] [address] Performed By: #### 2 4321-2 ####[facility]ORYCLIA [id number] [address] [place] Calcium [Mass/Vol] 7.2 mg/dL Low 8.5-10.2 [facility] Comment on above: Order Comment: Speci men Type: BLOOD SPECIMENOrdering Facility: [facility] Address: [address] [place] [address] Performed By: #### 2 4321-2 ####[facility]ORYCLIA [id number] [address] Chloride [Moles/Vol] 95 mmol/L Low 97-105 [facility] Comment on above: Order Comment: Speci men Type: BLOOD SPECIMENOrdering Facility: [facility] Address: [address] [place] [address] Performed By: #### 2 4321-2 ####[facility]ORYCLIA [id number] [address] CO2 [Moles/Vol] 26 mmol/L Normal 22-30 [facility] Comment on above: Order Comment: Speci men Type: BLOOD SPECIMENOrdering Facility: [facility] Address: [address] [place] [address] Performed By: #### 2 4321-2 ####[facility]ORYCLIA [id number] [address] Creatinine [Mass/Vol] 0.38 mg/dL Low 0.58-0.96 [facility] Comment on above: Order Comment: Speci men Type: BLOOD SPECIMENOrdering Facility: [facility] Address: [address] [place] [address] Performed By: #### 2 4321-2 ####[facility]ORYCLIA [id number] [address] ESTIMATED GLOMERULAR FILTRATION RATE 105 mL/min/1.73m??? Normal >=60 [facility] Comment on above: Order Comment: Speci men Type: BLOOD SPECIMENOrdering Facility: [facility] Address: [address] [place] [address] Result Comment: Lulu mated Glomerular Filtration Rate [...] actual GFR. Performed By: #### 2 4321-2 ####[facility]ATORYCLIA [id number] [place] [address] [place] Glucose [Mass/Vol] 111 mg/dL High 74-99 [facility] Comment on above: Order Comment: Speci men Type: BLOOD SPECIMENOrdering Facility: [facility] Address: [address] [place] [address] Result Comment: The [place] [employer] (ADA) provides guidance for cutoff [...] Standards of Medical Care in Diabetes 2016, [place] [employer]. Diabetes Care. 2016.39(Suppl 1). Performed By: #### 2 4321-2 ####[facility]ATORYCLIA [id number] [place] [address] [place] Potassium [Moles/Vol] 3.4 mmol/L Low 3.7-5.1 [facility] Comment on above: Order Comment: Speci men Type: BLOOD SPECIMENOrdering Facility: [facility] Address: [address] [place] [address] Performed By: #### 2 4321-2 ####[facility]ATORYCLIA [id number] [place] [address] [place] Sodium [Moles/Vol] 131 mmol/L Low 136-144 [facility] Comment on above: Order Comment: Speci men Type: BLOOD SPECIMENOrdering Facility: [facility] Address: [address] [place] [address] Performed By: #### 2 4321-2 ####[facility]ATORYCLIA [id number] [place] [address] [place] Urea nitrogen [Mass/Vol] 10 mg/dL Normal 7-21 [facility] Comment on above: Order Comment: Speci men Type: BLOOD SPECIMENOrdering Facility: [facility] Address: [address] [place] [address] Performed By: #### 2 4321-2 ####[facility]ATORYCLIA [id number] [address] [place] CASE MANAGEMon 10-12-[address] [facility] CBC panel Auto (Bld)on 10-12 Erythrocyte distribution width (RBC) [Ratio] 13.6 % Normal 11.5-15.0 [facility] Comment on above: Order Comment: Speci men Type: BLOOD SPECIMENOrdering Facility: [facility] Address: [address] [place] [address] Performed By: #### 5 8410-2 ####[facility]ORYCLIA [id number] [address] [place] Hematocrit (Bld) [Volume fraction] 24.8 % Low 36.0-46.0 [facility] Comment on above: Order Comment: Speci men Type: BLOOD SPECIMENOrdering Facility: [facility] Address: [address] [place] [address] Performed By: #### 5 8410-2 ####[facility]ATORYCLIA [id number] [place] [address] [place] Hemoglobin (Bld) [Mass/Vol] 8.6 g/dL Low 11.5-15.5 [facility] Comment on above: Order Comment: Speci men Type: BLOOD SPECIMENOrdering Facility: [facility] Address: [address] [place] [address] Performed By: #### 5 8410-2 ####[facility]ATORYCLIA [id number] [address] [place] MCH (RBC) [Entitic mass] 32.8 pg Normal 26.0-34.0 [facility] Comment on above: Order Comment: Speci men Type: BLOOD SPECIMENOrdering Facility: [facility] Address: [address] [place] [address] Performed By: #### 5 8410-2 ####[facility]ATORYCLIA [id number] [address] MCHC (RBC) [Mass/Vol] 34.7 g/dL Normal 30.5-36.0 [facility] Comment on above: Order Comment: Speci men Type: BLOOD SPECIMENOrdering Facility: [facility] Address: [address] [place] [address] Performed By: #### 5 8410-2 ####[facility]ORYCLIA [id number] [address] MCV (RBC) [Entitic vol] 94.7 fL Normal 80.0-100.0 [facility] Comment on above: Order Comment: Speci men Type: BLOOD SPECIMENOrdering Facility: [facility] Address: [address] [place] [address] Performed By: #### 5 8410-2 ####[facility]ORYCLIA [id number] [address] Nucleated RBC (Bld) [#/Vol] 10*3/uL Normal <0.01 [facility] Comment on above: Order Comment: Speci men Type: BLOOD SPECIMENOrdering Facility: [facility] Address: [address] [place] [address] Performed By: #### 5 8410-2 ####[facility]ORYCLIA [id number] [address] Platelet mean volume (Bld) [Entitic vol] 9.5 fL Normal 9.0-12.7 [facility] Comment on above: Order Comment: Speci men Type: BLOOD SPECIMENOrdering Facility: [facility] Address: [address] [place] [address] Performed By: #### 5 8410-2 ####[facility]ATORYCLIA [id number] [address] [facility] Platelets (Bld) [#/Vol] 338 10*3/uL Normal 150-400 [facility] Comment on above: Order Comment: Speci men Type: BLOOD SPECIMENOrdering Facility: [facility] Address: [address] [place] [address] Performed By: #### 5 8410-2 ####[facility]ATORYCLIA [id number] [place] [address] [place] RBC (Bld) [#/Vol] 2.62 10*6/uL Low 3.90-5.20 [facility] Comment on above: Order Comment: Speci men Type: BLOOD SPECIMENOrdering Facility: [facility] Address: [address] [place] [address] Performed By: #### 5 8410-2 ####[facility]ORYCLIA [id number] [address] WBC (Bld) [#/Vol] 15.12 10*3/uL High 3.70-11.00 [facility] Comment on above: Order Comment: Speci men Type: BLOOD SPECIMENOrdering Facility: [facility] Address: [address] [place] [address] Performed By: #### 5 8410-2 ####[facility]ATORYCLIA [id number] [address] [place] CNPNon 10-12-[address] [facility] THERAPY NTon 10-12-[address] [facility] XR CHEST 1V FRONTALon 2021 XR CHEST 1V FRONTAL Normal [facility] ALLIED HEALTHon 10-11-[address] [facility] ALLIED HEALTH Normal [facility] ALLIED HEALTH Normal [facility] ALLIED HEALTH Normal [facility] ANES POSTPROC EVALon 022 ANES POSTPROC EVAL Normal [facility] Bacteria Bld Culton 10-12-19 22 Bacteria identified Cx Nom (Bld) CULTURE, BLOOD: No growth [address] [facility] Comment on above: Performed By: #### 6 00-7 ####[facility]ATORYCLIA [id number] [address] [place] [facility] Bacteria identified Cx Nom (Bld) CULTURE, BLOOD: No growth [address] [facility] Comment on above: Performed By: #### 6 00-7 ####[facility]ATORYCLIA [id number] [address] [place] [facility] Basic metabolic 2000 panelon 10-11-2021 Anion gap [Moles/Vol] 9 mmol/L Normal 9-18 [facility] Comment on above: Order Comment: Speci men Type: BLOOD SPECIMENOrdering Facility: [facility] Address: [address] [place] [address] Performed By: #### 2 4321-2 ####[facility]ORYCLIA [id number] [address] [place] Calcium [Mass/Vol] 7.5 mg/dL Low 8.5-10.2 [facility] Comment on above: Order Comment: Speci men Type: BLOOD SPECIMENOrdering Facility: [facility] Address: [address] [place] [address] Performed By: #### 2 4321-2 ####[facility]ORYCLIA [id number] [address] [place] [facility] Chloride [Moles/Vol] 94 mmol/L Low 97-105 [facility] Comment on above: Order Comment: Speci men Type: BLOOD SPECIMENOrdering Facility: [facility] Address: [address] [address] Performed By: #### 2 4321-2 ####[facility]ATORYCLIA [id number] [address] [place] CO2 [Moles/Vol] 27 mmol/L Normal 22-30 [facility] Comment on above: Order Comment: Speci men Type: BLOOD SPECIMENOrdering Facility: [facility] Address: [facility] [address] Performed By: #### 2 4321-2 ####[facility]ATORYCLIA [id number] [address] [place] [facility] Creatinine [Mass/Vol] 0.46 mg/dL Low 0.58-0.96 [facility] Comment on above: Order Comment: Sharath marta Type: BLOOD SPECIMENOrdering Facility: [facility] Address: [address] [place] [address] Performed By: #### 2 4321-2 ####[facility]ATORYCLIA [id number] [address] ESTIMATED GLOMERULAR FILTRATION RATE 101 mL/min/1.73m??? Normal >=60 [facility] Comment on above: Order Comment: Sharath lozano Type: BLOOD SPECIMENOrdering Facility: [facility] Address: [address] [place] [address] Result Comment: Lulu mated Glomerular Filtration Rate [...] actual GFR. Performed By: #### 2 4321-2 ####[facility]ATORYCLIA [id number] [address] [facility] Glucose [Mass/Vol] 125 mg/dL High 74-99 [facility] Comment on above: Order Comment: Sharath marta Type: BLOOD SPECIMENOrdering Facility: [facility] Address: [address] [place] [address] Result Comment: The [place] [employer] (ADA) provides guidance for cutoff [...] Standards of Medical Care in Diabetes 2016, [place] [employer]. Diabetes Care. 2016.39(Suppl 1). Performed By: #### 2 4321-2 ####[facility]ATORYCLIA [id number] [address] [place] [facility] Potassium [Moles/Vol] 3.8 mmol/L Normal 3.7-5.1 [facility] Comment on above: Order Comment: Speci men Type: BLOOD SPECIMENOrdering Facility: [facility] Address: [address] [place] [address] Performed By: #### 2 4321-2 ####[facility]ORYCLIA [id number] [address] Sodium [Moles/Vol] 130 mmol/L Low 136-144 [facility] Comment on above: Order Comment: Speci men Type: BLOOD SPECIMENOrdering Facility: [facility] Address: [address] [place] [address] Performed By: #### 2 4321-2 ####[facility]ORYCLIA [id number] [address] Urea nitrogen [Mass/Vol] 7 mg/dL Normal 7-21 [facility] Comment on above: Order Comment: Speci men Type: BLOOD SPECIMENOrdering Facility: [facility] Address: [address] [address] Performed By: #### 2 4321-2 ####[facility]ATORYCLIA [id number] [address] [place] CBC panel Auto (Bld)on 10-11 Erythrocyte distribution width (RBC) [Ratio] 13.5 % Normal 11.5-15.0 [facility] Comment on above: Order Comment: Speci men Type: BLOOD SPECIMENOrdering Facility: [facility] Address: [address] [address] Performed By: #### 5 8410-2 ####[facility]ATORYCLIA [id number] [address] Hematocrit (Bld) [Volume fraction] 25.4 % Low 36.0-46.0 [facility] Comment on above: Order Comment: Speci men Type: BLOOD SPECIMENOrdering Facility: [facility] Address: [address] [place] [address] Performed By: #### 5 8410-2 ####[facility]ATORYCLIA [id number] [address] Hemoglobin (Bld) [Mass/Vol] 8.8 g/dL Low 11.5-15.5 [facility] Comment on above: Order Comment: Speci men Type: BLOOD SPECIMENOrdering Facility: [facility] Address: [address] [place] [address] Performed By: #### 5 8410-2 ####[facility]ATORYCLIA [id number] [address] MCH (RBC) [Entitic mass] 32.5 pg Normal 26.0-34.0 [facility] Comment on above: Order Comment: Speci men Type: BLOOD SPECIMENOrdering Facility: [facility] Address: [address] [place] [address] Performed By: #### 5 8410-2 ####[facility]ATORYCLIA [id number] [address] MCHC (RBC) [Mass/Vol] 34.6 g/dL Normal 30.5-36.0 [facility] Comment on above: Order Comment: Speci men Type: BLOOD SPECIMENOrdering Facility: [facility] Address: [address] [place] [address] Performed By: #### 5 8410-2 ####[facility]ATORYCLIA [id number] [address] MCV (RBC) [Entitic vol] 93.7 fL Normal 80.0-100.0 [facility] Comment on above: Order Comment: Speci men Type: BLOOD SPECIMENOrdering Facility: [facility] Address: [address] Performed By: #### 5 8410-2 ####[facility]ORATORYCLIA [id number] [address] Nucleated RBC (Bld) [#/Vol] 10*3/uL Normal <0.01 [facility] Comment on above: Order Comment: Speci men Type: BLOOD SPECIMENOrdering Facility: [facility] Address: [address] [place], [place] [id number] Performed By: #### 5 8410-2 ####[facility] LABORATORYCLIA [id number] [address] [place] Platelet mean volume (Bld) [Entitic vol] 9.7 fL Normal 9.0-12.7 [facility] Comment on above: Order Comment: Speci men Type: BLOOD SPECIMENOrdering Facility: [facility] Address: [address] [place] [address] Performed By: #### 5 8410-2 ####[facility]ORATORYCLIA [id number] [address] [place] Platelets (Bld) [#/Vol] 310 10*3/uL Normal 150-400 [facility] Comment on above: Order Comment: Speci men Type: BLOOD SPECIMENOrdering Facility: [facility] Address: [address] [place], [place] [address] Performed By: #### 5 8410-2 ####[facility]ORATORYCLIA [id number] [address] [place] RBC (Bld) [#/Vol] 2.71 10*6/uL Low 3.90-5.20 [facility] Comment on above: Order Comment: Speci men Type: BLOOD SPECIMENOrdering Facility: [facility] Address: [address] [place] [address] Performed By: #### 5 8410-2 ####[facility]ATORYCLIA [id number] [place] [address] [place] WBC (Bld) [#/Vol] 19.17 10*3/uL High 3.70-11.00 [facility] Comment on above: Order Comment: Speci men Type: BLOOD SPECIMENOrdering Facility: [facility] Address: [address] [place] [address] Performed By: #### 5 8410-2 ####[facility]ATORYCLIA [id number] [address] [facility] CONSULTon 10-11-2021 CONSULT HNO ID: [id number] Author: Corin Quinn MD Service: [facility] Author Type: Physician Type: Consults Filed: 10/11/2021 3:56 PM Note Text: Consul tdictated. No intervention Normal [facility] CONSULT Normal [facility] MRI BRAIN WO/W IVCONon 10-11 MRI BRAIN WO/W IVCON Normal [facility] SEPSIS LACTATEon 10-11-2021 Lactate [Moles/Vol] 1.0 mmol/L Normal 0.5-2.0 [facility] Comment on above: Order Comment: Speci men Type: BLOOD SPECIMENOrdering Facility: [facility] Address: [address] [place] [address] Performed By: #### S LACT ####[facility]ATORYCLIA [id number] [address] THERAPY NTon 10-11-[address] [facility] THERAPY NT Normal [facility] XR CHEST 1V FRONTALon 2021 XR CHEST 1V FRONTAL Normal [facility] ALLIED HEALTHon 10-10-[address] [facility] ALLIED HEALTH Normal [facility] Basic metabolic 2000 panelon 10-10-2021 Anion gap [Moles/Vol] 13 mmol/L Normal 9-18 [facility] Comment on above: Order Comment: Speci men Type: BLOOD SPECIMENOrdering Facility: [facility] Address: [address] [place] [address] Performed By: #### 2 4321-2, 2776-04, ####[facility]ATORYCLIA [id number] [place] [address] [place] Calcium [Mass/Vol] 7.1 mg/dL Low 8.5-10.2 [facility] Comment on above: Order Comment: Speci men Type: BLOOD SPECIMENOrdering Facility: [facility] Address: [address] [place] [address] Performed By: #### 2 4321-2, 2776-04, ####[facility]ATORYCLIA [id number] [place] [address] [place] Chloride [Moles/Vol] 96 mmol/L Low 97-105 [facility] Comment on above: Order Comment: Speci men Type: BLOOD SPECIMENOrdering Facility: [facility] Address: [address] [place] [address] Performed By: #### 2 432-2, 2776-04, ####[facility]ATORYCLIA [id number] [place] [address] [place] CO2 [Moles/Vol] 23 mmol/L Normal 22-30 [facility] Comment on above: Order Comment: Speci men Type: BLOOD SPECIMENOrdering Facility: [facility] Address: [address] [place] [address] Performed By: #### 2 4321-2, 2776-04, ####[facility]ATORYCLIA [id number] [place] [address] [place] Creatinine [Mass/Vol] 0.52 mg/dL Low 0.58-0.96 [facility] Comment on above: Order Comment: Speci men Type: BLOOD SPECIMENOrdering Facility: [facility] Address: [address] [place] [address] Performed By: #### 2 4321-2, 2776-04, ####[facility]ATORYCLIA [id number] [place] [address] [place] ESTIMATED GLOMERULAR FILTRATION RATE 98 mL/min/1.73m??? Normal >=60 [facility] Comment on above: Order Comment: Sharath lozano Type: BLOOD SPECIMENOrdering Facility: [facility] Address: [address] [place] [address] Result Comment: Lulu mated Glomerular Filtration Rate [...] actual GFR. Performed By: #### 2 4321-2, 2777-1, ####[facility]PITALCLIA [id number] [place] [address] [place] Glucose [Mass/Vol] 126 mg/dL High 74-99 [facility] Comment on above: Order Comment: Sharath lozano Type: BLOOD SPECIMENOrdering Facility: [facility] Address: [address] [place], [place] [address] Result Comment: The [place] [employer] (ADA) provides guidance for cutoff [...] Standards of Medical Care in Diabetes 2016, [place] [employer]. Diabetes Care. 2016.39(Suppl 1). Performed By: #### 2 4321-2, 2777-, 72061-0 ####[facility]ATORYCLIA [id number] [place] [address] [place] Potassium [Moles/Vol] 3.8 mmol/L Normal 3.7-5.1 [facility] Comment on above: Order Comment: Speci men Type: BLOOD SPECIMENOrdering Facility: [facility] Address: [address] [place] [address] Performed By: #### 2 4321-2, 2776-04, ####[facility]ATORYCLIA [id number] [address] [place] Sodium [Moles/Vol] 132 mmol/L Low 136-144 [facility] Comment on above: Order Comment: Speci men Type: BLOOD SPECIMENOrdering Facility: [facility] Address: [address] [place] [address] Performed By: #### 2 4321-2, 2776-04, ####[facility]ATORYCLIA [id number] [address] [place] Urea nitrogen [Mass/Vol] 9 mg/dL Normal - [facility] Comment on above: Order Comment: Speci men Type: BLOOD SPECIMENOrdering Facility: [facility] Address: [address] [place] [address] Performed By: #### 2 4321-2, 2776-04, ####[facility]ATORYCLIA [id number] [address] [place] CASE MGT INIT ASSESon 2021 CASE MGT INIT ASSES Normal [facility] CBC panel Auto (Bld)on 10-10 Erythrocyte distribution width (RBC) [Ratio] 13.2 % Normal 11.5-15.0 [facility] Comment on above: Order Comment: Speci men Type: BLOOD SPECIMENOrdering Facility: [facility] Address: [address] [place] [address] Performed By: #### 5 8410-2 ####[facility]ORYCLIA [id number] [address] [place] Hematocrit (Bld) [Volume fraction] 26.5 % Low 36.0-46.0 [facility] Comment on above: Order Comment: Speci men Type: BLOOD SPECIMENOrdering Facility: [facility] Address: [address] [place] [address] Performed By: #### 5 8410-2 ####[facility]ORYCLIA [id number] [address] Hemoglobin (Bld) [Mass/Vol] 9.3 g/dL Low 11.5-15.5 [facility] Comment on above: Order Comment: Speci men Type: BLOOD SPECIMENOrdering Facility: [facility] Address: [address] [place] [address] Performed By: #### 5 8410-2 ####[facility]ATORYCLIA [id number] [address] MCH (RBC) [Entitic mass] 33.0 pg Normal 26.0-34.0 [facility] Comment on above: Order Comment: Speci men Type: BLOOD SPECIMENOrdering Facility: [facility] Address: [address] [place] [address] Performed By: #### 5 8410-2 ####[facility]ATORYCLIA [id number] [address] MCHC (RBC) [Mass/Vol] 35.1 g/dL Normal 30.5-36.0 [facility] Comment on above: Order Comment: Speci men Type: BLOOD SPECIMENOrdering Facility: [facility] Address: [address] [place] [address] Performed By: #### 5 8410-2 ####[facility]ATORYCLIA [id number] [address] MCV (RBC) [Entitic vol] 94.0 fL Normal 80.0-100.0 [facility] Comment on above: Order Comment: Speci men Type: BLOOD SPECIMENOrdering Facility: [facility] Address: [address] [place] [address] Performed By: #### 5 8410-2 ####[facility]ATORYCLIA [id number] [address] [facility] Nucleated RBC (Bld) [#/Vol] 10*3/uL Normal <0.01 [facility] Comment on above: Order Comment: Speci men Type: BLOOD SPECIMENOrdering Facility: [facility] Address: [address] [place] [address] Performed By: #### 5 8410-2 ####[facility]ATORYCLIA [id number] [address] [place] Platelet mean volume (Bld) [Entitic vol] 9.6 fL Normal 9.0-12.7 [facility] Comment on above: Order Comment: Speci men Type: BLOOD SPECIMENOrdering Facility: [facility] Address: [address] [place] [address] Performed By: #### 5 8410-2 ####[facility]ORYCLIA [id number] [address] [place] Platelets (Bld) [#/Vol] 325 10*3/uL Normal 150-400 [facility] Comment on above: Order Comment: Speci men Type: BLOOD SPECIMENOrdering Facility: [facility] Address: [address] [place] [address] Performed By: #### 5 8410-2 ####[facility]ATORYCLIA [id number] [address] [place] RBC (Bld) [#/Vol] 2.82 10*6/uL Low 3.90-5.20 [facility] Comment on above: Order Comment: Speci men Type: BLOOD SPECIMENOrdering Facility: [facility] Address: [address] [place] [address] Performed By: #### 5 8410-2 ####[facility]ATORYCLIA [id number] [address] [place] WBC (Bld) [#/Vol] 14.72 10*3/uL High 3.70-11.00 [facility] Comment on above: Order Comment: Speci men Type: BLOOD SPECIMENOrdering Facility: [facility] Address: [address] [place] [address] Performed By: #### 5 8410-2 ####[facility]ATORYCLIA [id number] [place] [address] [place] CONSULTon 10-10-[address] [facility] Calcium.ionized [Moles/Vol]o n 10-10-2021 Calcium.ionized (BldV) [Mass/Vol] 0.96 mmol/L Low 1.08-1.30 [facility] Comment on above: Order Comment: Speci men Type: BLOOD SPECIMENOrdering Facility: [facility] Address: [address] [place] [address] Performed By: #### 1 995-0 ####[facility]ATORYCLIA [id number] [address] STATES [facility] Calcium.ionized adjusted to pH 7.4 (Bld) [Moles/Vol] 0.98 mmol/L Low 1.08-1.30 [facility] Comment on above: Order Comment: Speci men Type: BLOOD SPECIMENOrdering Facility: [facility] Address: [address] [place] [address] Performed By: #### 1 995-0 ####[facility]ATORYCLIA [id number] [place] [address] [place] Magnesium SerPl-ncon 10-10 Magnesium [Mass/Vol] 1.3 mg/dL Low 1.7-2.3 [facility] Comment on above: Order Comment: Speci men Type: BLOOD SPECIMENOrdering Facility: [facility] Address: [address] [place] [address] Performed By: #### 2 4321-2, 2777-1, 51248-7 ####[facility]ATORYCLIA [id number] [place] [address] [place] Phosphate SerPl-mCncon 10-10 Phosphate [Mass/Vol] 4.0 mg/dL Normal 2.7-4.8 [facility] Comment on above: Order Comment: Speci men Type: BLOOD SPECIMENOrdering Facility: [facility] Address: [address] [place] [address] Performed By: #### 2 4321-2, 2777-1, 51368-9 ####[facility]ATORYCLIA [id number] [address] [place] US KIDNEY/BLADDERon 10-11-19 US KIDNEY/BLADDER Normal [facility] Urinalysis complete panel (U )on 10-10-2021 Bilirubin Ql (U) Negative Normal Negative [facility] Comment on above: Order Comment: Speci men Type: URINE SPECIMENOrdering Facility: [facility] Address: [address] [place] [address] Performed By: #### 2 4356-8 ####[facility]ORYCLIA [id number] [address] [place] Clarity (Unsp spec) Clear Normal Clear [facility] Comment on above: Order Comment: Speci men Type: URINE SPECIMENOrdering Facility: [facility] Address: [address] [place] [address] Performed By: #### 2 4356-8 ####[facility]ORYCLIA [id number] [address] Color (U) Colorless Normal yellow [facility] Comment on above: Order Comment: Speci men Type: URINE SPECIMENOrdering Facility: [facility] Address: [address] [place] [address] Performed By: #### 2 4356-8 ####[facility]ORYCLIA [id number] [address] [place] Glucose Test strip (U) [Mass/Vol] Negative Normal Negative [facility] Comment on above: Order Comment: Speci men Type: URINE SPECIMENOrdering Facility: [facility] Address: [address] [place] [address] Performed By: #### 2 4356-8 ####[facility]ORYCLIA [id number] [address] Hemoglobin Ql (U) Trace Abnormal Negative [facility] Comment on above: Order Comment: Speci men Type: URINE SPECIMENOrdering Facility: [facility] Address: [address] [place] [address] Performed By: #### 2 4356-8 ####[facility]ORYCLIA [id number] [address] Ketones Ql (U) Negative Normal Negative [facility] Comment on above: Order Comment: Speci men Type: URINE SPECIMENOrdering Facility: [facility] Address: [address] [place] [address] Performed By: #### 2 4356-8 ####[facility]ORYCLIA [id number] [address] Leukocyte esterase Test strip Ql (U) 250 Karson/mL Abnormal Negative [facility] Comment on above: Order Comment: Speci men Type: URINE SPECIMENOrdering Facility: [facility] Address: [address] [place] [address] Performed By: #### 2 4356-8 ####[facility]ORYCLIA [id number] [address] Nitrite Ql (U) Negative Normal Negative [facility] Comment on above: Order Comment: Speci men Type: URINE SPECIMENOrdering Facility: [facility] Address: [address] [place] [address] Performed By: #### 2 4356-8 ####[facility]ORYCLIA [id number] [address] [place] pH (U) 6.5 [pH] Normal 5.0-8.0 [facility] Comment on above: Order Comment: Speci men Type: URINE SPECIMENOrdering Facility: [facility] Address: [address] [place] [address] Performed By: #### 2 4356-8 ####[facility]ATORYCLIA [id number] [address] [place] Protein (U) [Mass/Vol] Negative Normal Negative [facility] Comment on above: Order Comment: Speci men Type: URINE SPECIMENOrdering Facility: [facility] Address: [address] [place] [address] Performed By: #### 2 4356-8 ####[facility]ORYCLIA [id number] [address] STATES [facility] RBC LM.HPF (Urine sed) [#/Area] 3-5 /HPF Abnormal 0-3 /HPF [facility] Comment on above: Order Comment: Speci men Type: URINE SPECIMENOrdering Facility: [facility] Address: [address] [place] [address] Performed By: #### 2 4356-8 ####[facility]ATORYCLIA [id number] [address] Specific gravity (U) [Rel density] 1.007 Normal 1.005-1.030 [facility] Comment on above: Order Comment: Speci men Type: URINE SPECIMENOrdering Facility: [facility] Address: [address] [place] [address] Performed By: #### 2 4356-8 ####[facility]ORYCLIA [id number] [address] Urobilinogen Ql (U) Normal Normal Negative [facility] Comment on above: Order Comment: Speci men Type: URINE SPECIMENOrdering Facility: [facility] Address: [address] [place] [address] Performed By: #### 2 4356-8 ####[facility]ORYCLIA [id number] [address] [place] WBC LM.HPF (Urine sed) [#/Area] 6-10 /HPF Abnormal 0-5 /HPF [facility] Comment on above: Order Comment: Speci men Type: URINE SPECIMENOrdering Facility: [facility] Address: [address] [place] [address] Performed By: #### 2 4356-8 ####[facility]PITALCLIA [id number] [place] [address] [place] XR CHEST 1V FRONTALon 2021 XR CHEST 1V FRONTAL Normal [facility] ALLIED HEALTHon 10-09-[address] [facility] ALLIED HEALTH Normal [facility] ANES PRE-OPon 10-09-2021 ANES PRE-OP Normal [facility] ANES PRE-OP Normal [facility] ARTERIAL BLOOD GASESon 10-09 BASE DEFICIT, ARTERIAL -1 mmol/L Normal -2-0 [facility] Comment on above: Order Comment: Speci men Type: ARTERIAL BLOOD SPECIMENOrdering Facility: [facility] Address: [address] [place] [address] Performed By: #### A LLBG ####[facility]ATORYCLIA [id number] [address] [place] Body temperature 96.08 [degF] Normal [facility] Comment on above: Order Comment: Speci men Type: ARTERIAL BLOOD SPECIMENOrdering Facility: [facility] Address: [address] [place] [address] Performed By: #### A LLBG ####[facility]ATORYCLIA [id number] [place] [address] [place] CALCIUM IONIZED, PH CORRECTED 1.07 mmol/L Low 1.08-1.30 [facility] Comment on above: Order Comment: Speci men Type: ARTERIAL BLOOD SPECIMENOrdering Facility: [facility] Address: [address] [place] [address] Performed By: #### A LLBG ####[facility]ATORYCLIA [id number] [place] [address] [place] Calcium.ionized (BldV) [Mass/Vol] 1.07 mmol/L Low 1.08-1.30 [facility] Comment on above: Order Comment: Speci men Type: ARTERIAL BLOOD SPECIMENOrdering Facility: [facility] Address: [address] [place] [address] Performed By: #### A LLBG ####[facility]ORYCLIA [id number] [address] [place] Carboxyhemoglobin (BldA) [Mass fraction] 1.2 % Normal 0.0-2.0 [facility] Comment on above: Order Comment: Speci men Type: ARTERIAL BLOOD SPECIMENOrdering Facility: [facility] Address: [address] [place] [address] Result Comment: Carb oxyhemoglobin Reference Range for Smokers: 2.0-8.0% Performed By: #### A LLBG ####[facility]ATORYCLIA [id number] [address] [place] CO2 (Bld) [Partial pressure] 39 mm Hg Normal 36-46 [facility] Comment on above: Order Comment: Speci men Type: ARTERIAL BLOOD SPECIMENOrdering Facility: [facility] Address: [address] [place] [address] Performed By: #### A LLBG ####[facility]ORYCLIA [id number] [address] [place] CO2 [Moles/Vol] 22 mmol/L Normal 22-28 [facility] Comment on above: Order Comment: Speci men Type: ARTERIAL BLOOD SPECIMENOrdering Facility: [facility] Address: [address] [place] [address] Performed By: #### A LLBG ####[facility]ORYCLIA [id number] [address] [place] CO2 adjusted to patient's actual temperature (Bld) [Partial pressure] 36 mmHg Normal 36-46 [facility] Comment on above: Order Comment: Speci men Type: ARTERIAL BLOOD SPECIMENOrdering Facility: [facility] Address: [address] [place] [address] Performed By: #### A LLBG ####[facility]ORYCLIA [id number] [place] [address] [place] Glucose [Mass/Vol] 164 mg/dL High 60-105 [facility] Comment on above: Order Comment: Speci men Type: ARTERIAL BLOOD SPECIMENOrdering Facility: [facility] Address: [address] [place] [address] Performed By: #### A LLBG ####[facility]ORYCLIA [id number] [address] HCO3 (Bld) [Moles/Vol] 24 mmol/L Normal 22-26 [facility] Comment on above: Order Comment: Speci men Type: ARTERIAL BLOOD SPECIMENOrdering Facility: [facility] Address: [address] [place] [address] Performed By: #### A LLBG ####[facility]ORYCLIA [id number] [address] Hematocrit (Bld) [Volume fraction] 32.9 % Low 36.0-46.0 [facility] Comment on above: Order Comment: Speci men Type: ARTERIAL BLOOD SPECIMENOrdering Facility: [facility] Address: [address] [place] [address] Performed By: #### A LLBG ####[facility]ORYCLIA [id number] [address] Hemoglobin (Bld) [Mass/Vol] 10.6 g/dL Low 11.5-15.5 [facility] Comment on above: Order Comment: Speci men Type: ARTERIAL BLOOD SPECIMENOrdering Facility: [facility] Address: [address] [place] [address] Performed By: #### A LLBG ####[facility]ORYCLIA [id number] [address] Methemoglobin (Bld) [Mass fraction] 1.1 % Normal 0.0-1.5 [facility] Comment on above: Order Comment: Speci men Type: ARTERIAL BLOOD SPECIMENOrdering Facility: [facility] Address: [address] [place] [address] Performed By: #### A LLBG ####[facility]ORYCLIA [id number] [address] O2 THERAPY RA=Room Air Normal [facility] Comment on above: Order Comment: Speci men Type: ARTERIAL BLOOD SPECIMENOrdering Facility: [facility] Address: [facility] [place] [address] Performed By: #### A LLBG ####[facility]ORYCLIA [id number] [address] Oxygen (Bld) [Partial pressure] 75 mm Hg Low 85-95 [facility] Comment on above: Order Comment: Speci men Type: ARTERIAL BLOOD SPECIMENOrdering Facility: [facility] Address: [address] [place] [address] Performed By: #### A LLBG ####[facility]ORYCLIA [id number] [address] Oxygen adjusted to patient's actual temperature (Bld) [Partial pressure] 69 mmHg Low 85-95 [facility] Comment on above: Order Comment: Speci men Type: ARTERIAL BLOOD SPECIMENOrdering Facility: [facility] Address: [address] [place] [address] Performed By: #### A LLBG ####[facility]ORYCLIA [id number] [address] OXYGEN SATURATION, ARTERIAL 95 % Normal 95-98 [facility] Comment on above: Order Comment: Speci men Type: ARTERIAL BLOOD SPECIMENOrdering Facility: [facility] Address: [address] [address] Performed By: #### A LLBG ####[facility]ORYCLIA [id number] [address] Oxyhemoglobin (BldA) [Mass fraction] 93 % Low 95-98 [facility] Comment on above: Order Comment: Speci men Type: ARTERIAL BLOOD SPECIMENOrdering Facility: [facility] Address: [address] [address] Performed By: #### A LLBG ####[facility]ORYCLIA [id number] [address] pH (Bld) 7.40 [pH] Normal 7.35-7.45 [facility] Comment on above: Order Comment: Speci men Type: ARTERIAL BLOOD SPECIMENOrdering Facility: [facility] Address: [address] [place] [address] Performed By: #### A LLBG ####[facility]ATORYCLIA [id number] [address] pH adjusted to patient's actual temperature (Bld) 7.42 Normal 7.35-7.45 [facility] Comment on above: Order Comment: Speci men Type: ARTERIAL BLOOD SPECIMENOrdering Facility: [facility] Address: [address] [place] [address] Performed By: #### A LLBG ####[facility]ATORYCLIA [id number] [address] [place] Potassium [Moles/Vol] 2.7 mmol/L Low 3.5-5.0 [facility] Comment on above: Order Comment: Speci men Type: ARTERIAL BLOOD SPECIMENOrdering Facility: [facility] Address: [address] [place] [address] Performed By: #### A LLBG ####SunibleMCLAR[facility] LABORATORYCLIA [id number] [address] [place] Sodium [Moles/Vol] 133 mmol/L Low 136-144 [facility] Comment on above: Order Comment: Speci men Type: ARTERIAL BLOOD SPECIMENOrdering Facility: [facility] Address: [address] [place] [address] Performed By: #### A LLBG ####[facility]ORATORYCLIA [id number] [place] [address] [place] Basic metabolic 2000 panelon 10-09-2021 Anion gap [Moles/Vol] 15 mmol/L Normal 9-18 [facility] Comment on above: Order Comment: Speci men Type: BLOOD SPECIMENOrdering Facility: [facility] Address: [address] [place] [address] Performed By: #### 1 9123-9, 277-1, 83834-2 ####[facility]ATORYCLIA [id number] [place] [address] [place] Calcium [Mass/Vol] 8.4 mg/dL Low 8.5-10.2 [facility] Comment on above: Order Comment: Speci men Type: BLOOD SPECIMENOrdering Facility: [facility] Address: [address] [place] [address] Performed By: #### 1 9123-9, 27710-20, 44872-9 ####[facility] LABORATORYCLIA [id number] [place] [address] [place] Chloride [Moles/Vol] 96 mmol/L Low 97-105 [facility] Comment on above: Order Comment: Speci men Type: BLOOD SPECIMENOrdering Facility: [facility] Address: [address] [place] [address] Performed By: #### 1 9123-9, 2776-04, 75291-0 ####[facility] LABORATORYCLIA [id number] [place] [address] [place] CO2 [Moles/Vol] 23 mmol/L Normal 22-30 [facility] Comment on above: Order Comment: Speci men Type: BLOOD SPECIMENOrdering Facility: [facility] Address: [address] [place] [address] Performed By: #### 1 9123-9, 27710-20, 43079-5 ####[facility] LABORATORYCLIA [id number] [place] [address] [place] Creatinine [Mass/Vol] 0.37 mg/dL Low 0.58-0.96 [facility] Comment on above: Order Comment: Speci men Type: BLOOD SPECIMENOrdering Facility: [facility] Address: [address] [place] [address] Performed By: #### 1 9123-9, 27710-20, 45962-2 ####[facility]ORATORYCLIA [id number] [place] [address] [place] ESTIMATED GLOMERULAR FILTRATION RATE 106 mL/min/1.73m??? Normal >=60 [facility] Comment on above: Order Comment: Cathymoe lozano Type: BLOOD SPECIMENOrdering Facility: [facility] Address: [address] [place] [address] Result Comment: Lulu mated Glomerular Filtration Rate [...] actual GFR. Performed By: #### 1 9123-9, 2777-1, 25108-7 ####[facility]ORATORYCLIA [id number] [place] [address] [place] Glucose [Mass/Vol] 156 mg/dL High 74-99 [facility] Comment on above: Order Comment: Sharath lozano Type: BLOOD SPECIMENOrdering Facility: [facility] Address: [address] [place] [address] Result Comment: The [place] Diabetes Association (ADA) provides guidance for cutoff [...] Standards of Medical Care in Diabetes 2016, [place] [employer]. Diabetes Care. 2016.39(Suppl 1). Performed By: #### 1 9123-9, 2777-1, 21951-6 ####[facility]ORATORYCLIA [id number] [place] [id number] [place] Potassium [Moles/Vol] 3.3 mmol/L Low 3.7-5.1 [facility] Comment on above: Order Comment: Speci men Type: BLOOD SPECIMENOrdering Facility: [facility] Address: [address] [place] [address] Performed By: #### 1 9123-9, 2776-04, 53287-5 ####[facility]ORATORYCLIA [id number] [place] [address] [place] Sodium [Moles/Vol] 134 mmol/L Low 136-144 [facility] Comment on above: Order Comment: Speci men Type: BLOOD SPECIMENOrdering Facility: [facility] Address: [address] [place] [address] Performed By: #### 1 9123-9, 27710-20, ####[facility]ATORYCLIA [id number] [place] [address] [place] Urea nitrogen [Mass/Vol] 7 mg/dL Normal 7-21 [facility] Comment on above: Order Comment: Speci men Type: BLOOD SPECIMENOrdering Facility: [facility] Address: [address] [place] [address] Performed By: #### 1 9123-9, 2776-04, ####[facility]ORATORYCLIA [id number] [place] [address] [place] Anion gap [Moles/Vol] 10 mmol/L Normal 9-18 [facility] Comment on above: Order Comment: Speci men Type: BLOOD SPECIMENOrdering Facility: [facility] Address: [address] [place] [address] Performed By: #### 2 777-1, 46547-8, 05669-6 ####[facility]ORATORYCLIA [id number] [place] [address] [place] Calcium [Mass/Vol] 7.6 mg/dL Low 8.5-10.2 [facility] Comment on above: Order Comment: Speci men Type: BLOOD SPECIMENOrdering Facility: [facility] Address: [address] [place] [address] Performed By: #### 2 777-1, 22141-7, ####[facility]ORATORYCLIA [id number] [place] [address] [place] Chloride [Moles/Vol] 96 mmol/L Low 97-105 [facility] Comment on above: Order Comment: Speci men Type: BLOOD SPECIMENOrdering Facility: [facility] Address: [address] [place] [address] Performed By: #### 2 777-1, 50706-8, ####[facility]ORATORYCLIA [id number] [address] STATES [facility] CO2 [Moles/Vol] 27 mmol/L Normal 22-30 [facility] Comment on above: Order Comment: Speci men Type: BLOOD SPECIMENOrdering Facility: [facility] Address: [address] [place] [address] Performed By: #### 2 777-1, , ####[facility]ORATORYCLIA [id number] [address] [place] Creatinine [Mass/Vol] 0.49 mg/dL Low 0.58-0.96 [facility] Comment on above: Order Comment: Speci men Type: BLOOD SPECIMENOrdering Facility: [facility] Address: [address] [place] [address] Performed By: #### 2 777-1, , ####[facility]ORATORYCLIA [id number] [address] [place] ESTIMATED GLOMERULAR FILTRATION RATE 99 mL/min/1.73m??? Normal >=60 [facility] Comment on above: Order Comment: Speci men Type: BLOOD SPECIMENOrdering Facility: [facility] Address: [address] [place] [address] Result Comment: Lulu mated Glomerular Filtration Rate [...] actual GFR. Performed By: #### 2 777-1, 07207-5, ####[facility]ORATORYCLIA [id number] [place] [address] [place] Glucose [Mass/Vol] 106 mg/dL High 74-99 [facility] Comment on above: Order Comment: Specmoe lozano Type: BLOOD SPECIMENOrdering Facility: [facility] Address: [address] [place] [address] Result Comment: The [place] Diabetes Association (ADA) provides guidance for cutoff [...] Standards of Medical Care in Diabetes 2016, [place] [employer]. Diabetes Care. 2016.39(Suppl 1). Performed By: #### 2 777-1, , ####[facility]ORATORYCLIA [id number] [place] [address] [place] Potassium [Moles/Vol] 3.5 mmol/L Low 3.7-5.1 [facility] Comment on above: Order Comment: Sharath lozano Type: BLOOD SPECIMENOrdering Facility: [facility] Address: [address] [place] [address] Performed By: #### 2 777-1, 41849-1, ####[facility]ORATORYCLIA [id number] [place] [address] [place] Sodium [Moles/Vol] 133 mmol/L Low 136-144 [facility] Comment on above: Order Comment: Speci men Type: BLOOD SPECIMENOrdering Facility: [facility] Address: [address] [place] [address] Performed By: #### 2 777-1, 19747-9, ####[facility]ORATORYCLIA [id number] [address] [place] Urea nitrogen [Mass/Vol] 6 mg/dL Low 7-21 [facility] Comment on above: Order Comment: Speci men Type: BLOOD SPECIMENOrdering Facility: [facility] Address: [address] [place] [address] Performed By: #### 2 777-1, 62903-9, ####[facility]ORATORYCLIA [id number] [address] [place] [facility] CBC panel Auto (Bld)on 10-09 Erythrocyte distribution width (RBC) [Ratio] 13.2 % Normal 11.5-15.0 [facility] Comment on above: Order Comment: Speci men Type: BLOOD SPECIMENOrdering Facility: [facility] Address: [address] [place] [address] Performed By: #### 5 8410-2 ####[facility]ORATORYCLIA [id number] [address] [place] [facility] Hematocrit (Bld) [Volume fraction] 31.9 % Low 36.0-46.0 [facility] Comment on above: Order Comment: Speci men Type: BLOOD SPECIMENOrdering Facility: [facility] Address: [address] [place] [address] Performed By: #### 5 8410-2 ####[facility]ORATORYCLIA [id number] [address] [place] Hemoglobin (Bld) [Mass/Vol] 11.0 g/dL Low 11.5-15.5 [facility] Comment on above: Order Comment: Speci men Type: BLOOD SPECIMENOrdering Facility: [facility] Address: [address] [place], [place] [address] Performed By: #### 5 8410-2 ####[facility]ORATORYCLIA [id number] [address] MCH (RBC) [Entitic mass] 32.7 pg Normal 26.0-34.0 [facility] Comment on above: Order Comment: Speci men Type: BLOOD SPECIMENOrdering Facility: [facility] Address: [address] [place] [address] Performed By: #### 5 8410-2 ####[facility]ORATORYCLIA [id number] [address] MCHC (RBC) [Mass/Vol] 34.5 g/dL Normal 30.5-36.0 [facility] Comment on above: Order Comment: Speci men Type: BLOOD SPECIMENOrdering Facility: [facility] Address: [address] [place] [address] Performed By: #### 5 8410-2 ####[facility]ORATORYCLIA [id number] [address] MCV (RBC) [Entitic vol] 94.9 fL Normal 80.0-100.0 [facility] Comment on above: Order Comment: Speci men Type: BLOOD SPECIMENOrdering Facility: [facility] Address: [address] [place] [address] Performed By: #### 5 8410-2 ####[facility]ORATORYCLIA [id number] [address] Nucleated RBC (Bld) [#/Vol] 10*3/uL Normal <0.01 [facility] Comment on above: Order Comment: Speci men Type: BLOOD SPECIMENOrdering Facility: [facility] Address: [address] [place] [address] Performed By: #### 5 8410-2 ####[facility]ORATORYCLIA [id number] [address] Platelet mean volume (Bld) [Entitic vol] 9.7 fL Normal 9.0-12.7 [facility] Comment on above: Order Comment: Speci men Type: BLOOD SPECIMENOrdering Facility: [facility] Address: [address] [place] [address] Performed By: #### 5 8410-2 ####[facility]ATORYCLIA [id number] [address] [place] Platelets (Bld) [#/Vol] 301 10*3/uL Normal 150-400 [facility] Comment on above: Order Comment: Speci men Type: BLOOD SPECIMENOrdering Facility: [facility] Address: [address] [place], [place] [address] Performed By: #### 5 8410-2 ####[facility]ATORYCLIA [id number] [address] [place] RBC (Bld) [#/Vol] 3.36 10*6/uL Low 3.90-5.20 [facility] Comment on above: Order Comment: Speci men Type: BLOOD SPECIMENOrdering Facility: [facility] Address: [address] [place] [address] Performed By: #### 5 8410-2 ####[facility]ATORYCLIA [id number] [address] WBC (Bld) [#/Vol] 22.01 10*3/uL High 3.70-11.00 [facility] Comment on above: Order Comment: Speci men Type: BLOOD SPECIMENOrdering Facility: [facility] Address: [address] [place], [place] [address] Performed By: #### 5 8410-2 ####[facility]ATORYCLIA [id number] [address] Erythrocyte distribution width (RBC) [Ratio] 13.4 % Normal 11.5-15.0 [facility] Comment on above: Order Comment: Speci men Type: BLOOD SPECIMENOrdering Facility: [facility] Address: [address] [place], [place] [address] Performed By: #### 5 8410-2 ####[facility]ATORYCLIA [id number] [address] Hematocrit (Bld) [Volume fraction] 28.6 % Low 36.0-46.0 [facility] Comment on above: Order Comment: Speci men Type: BLOOD SPECIMENOrdering Facility: [facility] Address: [address] [place] [address] Performed By: #### 5 8410-2 ####[facility]ATORYCLIA [id number] [address] Hemoglobin (Bld) [Mass/Vol] 9.8 g/dL Low 11.5-15.5 [facility] Comment on above: Order Comment: Speci men Type: BLOOD SPECIMENOrdering Facility: [facility] Address: [address] [place] [address] Performed By: #### 5 8410-2 ####[facility]ATORYCLIA [id number] [address] MCH (RBC) [Entitic mass] 32.8 pg Normal 26.0-34.0 [facility] Comment on above: Order Comment: Speci men Type: BLOOD SPECIMENOrdering Facility: [facility] Address: [address] [place] [address] Performed By: #### 5 8410-2 ####[facility]ATORYCLIA [id number] [address] MCHC (RBC) [Mass/Vol] 34.3 g/dL Normal 30.5-36.0 [facility] Comment on above: Order Comment: Speci men Type: BLOOD SPECIMENOrdering Facility: [facility] Address: [address] [place] [address] Performed By: #### 5 8410-2 ####[facility]ATORYCLIA [id number] [address] [facility] MCV (RBC) [Entitic vol] 95.7 fL Normal 80.0-100.0 [facility] Comment on above: Order Comment: Speci men Type: BLOOD SPECIMENOrdering Facility: [facility] Address: [address] Performed By: #### 5 8410-2 ####[facility]ATORYCLIA [id number] [address] [place] Nucleated RBC (Bld) [#/Vol] 10*3/uL Normal <0.01 [facility] Comment on above: Order Comment: Speci men Type: BLOOD SPECIMENOrdering Facility: [facility] Address: [address] [place], [place] [address] Performed By: #### 5 8410-2 ####[facility]ATORYCLIA [id number] [address] [place] Platelet mean volume (Bld) [Entitic vol] 9.9 fL Normal 9.0-12.7 [facility] Comment on above: Order Comment: Speci men Type: BLOOD SPECIMENOrdering Facility: [facility] Address: [address] [place], [place] [address] Performed By: #### 5 8410-2 ####[facility]ATORYCLIA [id number] [address] [place] Platelets (Bld) [#/Vol] 273 10*3/uL Normal 150-400 [facility] Comment on above: Order Comment: Speci men Type: BLOOD SPECIMENOrdering Facility: [facility] Address: [address] Performed By: #### 5 8410-2 ####[facility]ATORYCLIA [id number] [address] [place] RBC (Bld) [#/Vol] 2.99 10*6/uL Low 3.90-5.20 [facility] Comment on above: Order Comment: Speci men Type: BLOOD SPECIMENOrdering Facility: [facility] Address: [address] [place], [place] [address] Performed By: #### 5 8410-2 ####[facility]ATORYCLIA [id number] [place] [address] [place] WBC (Bld) [#/Vol] 10.93 10*3/uL Normal 3.70-11.00 [facility] Comment on above: Order Comment: Speci men Type: BLOOD SPECIMENOrdering Facility: [facility] Address: [address] [place] [address] Performed By: #### 5 8410-2 ####[facility]ATORYCLIA [id number] [address] [place] Calcium.ionized [Moles/Vol]o n 10-09-2021 Calcium.ionized (BldV) [Mass/Vol] 1.02 mmol/L Low 1.08-1.30 [facility] Comment on above: Order Comment: Speci men Type: BLOOD SPECIMENOrdering Facility: [facility] Address: [address] [place] [address] Performed By: #### 1 995-0 ####[facility]ORATORYCLIA [id number] [address] Calcium.ionized adjusted to pH 7.4 (Bld) [Moles/Vol] 1.00 mmol/L Low 1.08-1.30 [facility] Comment on above: Order Comment: Speci men Type: BLOOD SPECIMENOrdering Facility: [facility] Address: [address] [place] [address] Performed By: #### 1 995-0 ####[facility]ORATORYCLIA [id number] [address] [place] Magnesium SerPl-mCncon 10-09 Magnesium [Mass/Vol] 1.3 mg/dL Low 1.7-2.3 [facility] Comment on above: Order Comment: Speci men Type: BLOOD SPECIMENOrdering Facility: [facility] Address: [address] [place] [address] Performed By: #### 1 9123-9, 2777-1, 67550-0 ####[facility]ORATORYCLIA [id number] [address] [place] Magnesium [Mass/Vol] 1.5 mg/dL Low 1.7-2.3 [facility] Comment on above: Order Comment: Speci men Type: BLOOD SPECIMENOrdering Facility: [facility] Address: [address] [place] [address] Performed By: #### 2 777-1, 09133-3, 15183-3 ####[facility]ORATORYCLIA [id number] [address] [place] NURSING PROGon 10-09-[address] [facility] OPERATIVE NOon 10-09-[address] [facility] Phosphate SerPl-mCncon 10-09 Phosphate [Mass/Vol] 4.3 mg/dL Normal 2.7-4.8 [facility] Comment on above: Order Comment: Speci men Type: BLOOD SPECIMENOrdering Facility: [facility] Address: [address] [place] [address] Performed By: #### 1 9123-9, 2777-1, 48865-7 ####[facility]ATORYCLIA [id number] [address] Phosphate [Mass/Vol] 3.8 mg/dL Normal 2.7-4.8 [facility] Comment on above: Order Comment: Speci men Type: BLOOD SPECIMENOrdering Facility: [facility] Address: [address] [place] [address] Performed By: #### 2 777-1, 34863-3, 02113-0 ####[facility]ATORYCLIA [id number] [address] THERAPY NTon 10-09-[address] [facility] TYPE + SCREENon 10-09-[address] [facility] Comment on above: Order Comment: Speci men Type: BLOOD SPECIMENOrdering Facility: [facility] Address: [address] [place] [address] Performed By: #### T SCR ####[facility] BANKCLIA [id number] [address] HISTORICAL AB SCR STATUS Negative Normal [facility] Comment on above: Order Comment: Speci men Type: BLOOD SPECIMENOrdering Facility: [facility] Address: [address] [place] [address] Performed By: #### T SCR ####[facility] BLO[facility] BANKCLIA [id number] [address] Rh Nom (Bld) Positive Normal [facility] Comment on above: Order Comment: Speci men Type: BLOOD SPECIMENOrdering Facility: [facility] Address: [address] [place] [address] Performed By: #### T SCR ####[facility] BLO[facility] BANKCLIA [id number] [address] TYPE AND SCREEN EXPIRATION 10/12/2021 23:[address] [facility] Comment on above: Order Comment: Speci men Type: BLOOD SPECIMENOrdering Facility: [facility] Address: [address] [place] [address] Performed By: #### T SCR ####[facility] BLOOD BANKCLIA [id number] [address] [facility] XR CHEST 1V FRONTALon 2021 XR CHEST 1V FRONTAL Normal [facility] XR CHEST 1V FRONTAL Normal [facility] 25([place])D3 [facility] 25-hydroxyvitamin D3 [Mass/Vol] 44.4 ng/mL Normal 30.0-100.0 [facility] Comment on above: Order Comment: Speci men Type: BLOOD SPECIMENOrdering Facility: [facility] Address: [address] [place] [address] Result Comment: Clas sification of 25 [place] Vitamin D status:Deficiency: <= 20.0 ng/ml.Insufficientcy: 21.0-29.0 ng/ml.Sufficiency: >= 30.0 ng/ml. Performed By: #### 1 989-3 ####[facility]ORATORYCLIA [id number] [place] [address] [place] ALLIED HEALTHon 10-08-[address] [facility] Basic metabolic 2000 panelon 10-08-2021 Anion gap [Moles/Vol] 9 mmol/L Normal 9-18 [facility] Comment on above: Order Comment: Speci men Type: BLOOD SPECIMENOrdering Facility: [facility] Address: [address] [place] [address] Performed By: #### 2 4321-2, , 2776- ####[facility]ORATORYCLIA [id number] [place] [address] [place] Calcium [Mass/Vol] 7.1 mg/dL Low 8.5-10.2 [facility] Comment on above: Order Comment: Speci men Type: BLOOD SPECIMENOrdering Facility: [facility] Address: [address] [place] [address] Performed By: #### 2 4321-2, , 2776- ####[facility]ORATORYCLIA [id number] [place] [address] [place] Chloride [Moles/Vol] 100 mmol/L Normal 97-105 [facility] Comment on above: Order Comment: Speci men Type: BLOOD SPECIMENOrdering Facility: [facility] Address: [address] [place] [address] Performed By: #### 2 4321-2, , 2776- ####[facility] LABORATORYCLIA [id number] [place] [id number] [place] CO2 [Moles/Vol] 24 mmol/L Normal 22-30 [facility] Comment on above: Order Comment: Speci men Type: BLOOD SPECIMENOrdering Facility: [facility] Address: [address] [place] [address] Performed By: #### 2 4321-2, , 2776- ####[facility] LABORATORYCLIA [id number] [place] [address] [place] [facility] Creatinine [Mass/Vol] 0.55 mg/dL Low 0.58-0.96 [facility] Comment on above: Order Comment: Shraath lozano Type: BLOOD SPECIMENOrdering Facility: [facility] Address: [address] [place] [address] Performed By: #### 2 4321-2, , 2776-04 ####[facility] LABORATORYIA [id number] [place] [address] [facility] ESTIMATED GLOMERULAR FILTRATION RATE 96 mL/min/1.73m??? Normal >=60 [facility] Comment on above: Order Comment: Sharath lozano Type: BLOOD SPECIMENOrdering Facility: [facility] Address: [address] [place] [address] Result Comment: Lulu mated Glomerular Filtration Rate [...] 2 4321-2, , 2776-04 ####[facility] HOSPITALIA [id number] [place] [address] [facility] Glucose [Mass/Vol] 108 mg/dL High 74-99 [facility] Comment on above: Order Comment: Sharath lozano Type: BLOOD SPECIMENOrdering Facility: [facility] Address: [address] [place] [address] Result Comment: The [place] [employer] (ADA) provides guidance for cutoff [...] Standards of Medical Care in Diabetes 2016, [place] [employer]. Diabetes Care. 2016.39(Suppl 1). Performed By: #### 2 4321-2, , 2776-04 ####[facility] LABORATORYCLIA [id number] [address] [place] [facility] Potassium [Moles/Vol] 3.5 mmol/L Low 3.7-5.1 [facility] Comment on above: Order Comment: Speci men Type: BLOOD SPECIMENOrdering Facility: [facility] Address: [address] [place] [address] Performed By: #### 2 1-2, , 2776-04 ####[facility]ITALCL[facility] [id number] [address] Sodium [Moles/Vol] 133 mmol/L Low 136-144 [facility] Comment on above: Order Comment: Speci men Type: BLOOD SPECIMENOrdering Facility: [facility] Address: [address] [place] [address] Performed By: #### 2 1-2, , 2776-04 ####[facility] LABORATORYCLIA [id number] [address] STATES [facility] Urea nitrogen [Mass/Vol] 6 mg/dL Low 7-21 [facility] Comment on above: Order Comment: Speci men Type: BLOOD SPECIMENOrdering Facility: [facility] Address: [address] [place] [address] Performed By: #### 2 4321-2, , 2776-04 ####[facility] LABORATORYCLIA [id number] [address] CBC panel Auto (Bld)on 10-08 Erythrocyte distribution width (RBC) [Ratio] 13.3 % Normal 11.5-15.0 [facility] Comment on above: Order Comment: Speci men Type: BLOOD SPECIMENOrdering Facility: [facility] Address: [address] [place] [address] Performed By: #### 5 8410-2 ####[facility] LABORATORYCLIA [id number] [address] Hematocrit (Bld) [Volume fraction] 28.3 % Low 36.0-46.0 [facility] Comment on above: Order Comment: Speci men Type: BLOOD SPECIMENOrdering Facility: [facility] Address: [address] [place] [address] Performed By: #### 5 8410-2 ####[facility]ORATORYCLIA [id number] [address] [facility] Hemoglobin (Bld) [Mass/Vol] 9.4 g/dL Low 11.5-15.5 [facility] Comment on above: Order Comment: Speci men Type: BLOOD SPECIMENOrdering Facility: [facility] Address: [address] [place] [address] Performed By: #### 5 8410-2 ####[facility]ORATORYCLIA [id number] [address] MCH (RBC) [Entitic mass] 32.8 pg Normal 26.0-34.0 [facility] Comment on above: Order Comment: Speci men Type: BLOOD SPECIMENOrdering Facility: [facility] Address: [address] [place] [address] Performed By: #### 5 8410-2 ####[facility]ORATORYCLIA [id number] [address] [place] MCHC (RBC) [Mass/Vol] 33.2 g/dL Normal 30.5-36.0 [facility] Comment on above: Order Comment: Speci men Type: BLOOD SPECIMENOrdering Facility: [facility] Address: [address] [place] [address] Performed By: #### 5 8410-2 ####[facility]ORATORYCLIA [id number] [address] MCV (RBC) [Entitic vol] 98.6 fL Normal 80.0-100.0 [facility] Comment on above: Order Comment: Speci men Type: BLOOD SPECIMENOrdering Facility: [facility] Address: [address] [place] [address] Performed By: #### 5 8410-2 ####[facility] LABORATORYCLIA [id number] [address] Nucleated RBC (Bld) [#/Vol] 10*3/uL Normal <0.01 [facility] Comment on above: Order Comment: Speci men Type: BLOOD SPECIMENOrdering Facility: [facility] Address: [address] [place] [address] Performed By: #### 5 8410-2 ####[facility]ORATORYCLIA [id number] [address] Platelet mean volume (Bld) [Entitic vol] 10.1 fL Normal 9.0-12.7 [facility] Comment on above: Order Comment: Speci men Type: BLOOD SPECIMENOrdering Facility: [facility] Address: [address] [place] [address] Performed By: #### 5 8410-2 ####[facility]ORATORYCLIA [id number] [address] Platelets (Bld) [#/Vol] 262 10*3/uL Normal 150-400 [facility] Comment on above: Order Comment: Speci men Type: BLOOD SPECIMENOrdering Facility: [facility] Address: [address] [place] [address] Performed By: #### 5 8410-2 ####[facility] LABORATORYCLIA [id number] [address] RBC (Bld) [#/Vol] 2.87 10*6/uL Low 3.90-5.20 [facility] Comment on above: Order Comment: Speci men Type: BLOOD SPECIMENOrdering Facility: [facility] Address: [address] [place] [address] Performed By: #### 5 8410-2 ####[facility] LABORATORYCLIA [id number] [address] [place] WBC (Bld) [#/Vol] 7.41 10*3/uL Normal 3.70-11.00 [facility] Comment on above: Order Comment: Speci men Type: BLOOD SPECIMENOrdering Facility: [facility] Address: [address] [place] [address] Performed By: #### 5 8410-2 ####[facility] LABORATORYCLIA [id number] [address] [place] Calcium.ionized [Moles/Vol]o n 10-08-2021 Calcium.ionized (BldV) [Mass/Vol] 0.99 mmol/L Low 1.08-1.30 [facility] Comment on above: Order Comment: Speci men Type: BLOOD SPECIMENOrdering Facility: [facility] Address: [address] [place] [address] Performed By: #### 1 995-0 ####[facility] LABORATORYCLIA [id number] [address] [place] Calcium.ionized adjusted to pH 7.4 (Bld) [Moles/Vol] 0.96 mmol/L Low 1.08-1.30 [facility] Comment on above: Order Comment: Speci men Type: BLOOD SPECIMENOrdering Facility: [facility] Address: [address] [place] [address] Performed By: #### 1 995-0 ####[facility] LABORATORYCLIA [id number] [address] [place] Magnesium SerPl-mCncon 10-08 Magnesium [Mass/Vol] 1.8 mg/dL Normal 1.7-2.3 [facility] Comment on above: Order Comment: Speci men Type: BLOOD SPECIMENOrdering Facility: [facility] Address: [address] [place] [address] Performed By: #### 2 4321-2, 84919-9, 2777-1 ####[facility] LABORATORYCLIA [id number] [place] [address] [facility] Phosphate [facility] 10-08 Phosphate [Mass/Vol] 3.4 mg/dL Normal 2.7-4.8 [facility] Comment on above: Order Comment: Speci men Type: BLOOD SPECIMENOrdering Facility: [facility] Address: [address] [place] [address] Performed By: #### 2 4321-2, 85236-5, 2777-1 ####[facility] LABORATORYCLIA [id number] [address] THERAPY NTon 10-08-[address] [facility] XR CHEST 1V FRONTALon 2021 XR CHEST 1V FRONTAL Normal [facility] 25(OH)D3 [facility] 2021 25-hydroxyvitamin D3 [Mass/Vol] 50.5 ng/mL Normal 30.0-100.0 [facility] Comment on above: Order Comment: Speci men Type: BLOOD SPECIMENOrdering Facility: [facility] Address: [address] [place] [address] Result Comment: Clas sification of 25 [place] Vitamin D status:Deficiency: <= 20.0 ng/ml.Insufficientcy: 21.0-29.0 ng/ml.Sufficiency: >= 30.0 ng/ml. Performed By: #### 1 989-3 ####[facility] LABORATORYCLIA [id number] [place] [address] [place] ALLIED HEALTHon 10-07-[address] [facility] ALLIED HEALTH Normal [facility] ALLIED HEALTH Normal [facility] ALLIED HEALTH Normal [facility] ALLIED HEALTH Normal [facility] Basic metabolic 2000 panelon 10-07-2021 Anion gap [Moles/Vol] 8 mmol/L Low - [facility] Comment on above: Order Comment: Speci men Type: BLOOD SPECIMENOrdering Facility: [facility] Address: [address] Performed By: #### 2 4321-2, 2776-04, ####[facility] LABORATORYCLIA [id number] [place] [address] [place] Calcium [Mass/Vol] 7.1 mg/dL Low 8.5-10.2 [facility] Comment on above: Order Comment: Speci men Type: BLOOD SPECIMENOrdering Facility: [facility] Address: [address] [place], [place] [address] Performed By: #### 2 4321-2, 2776-04, ####[facility] LABORATORYCLIA [id number] [place] [address] [place] Chloride [Moles/Vol] 99 mmol/L Normal 97-105 [facility] Comment on above: Order Comment: Speci men Type: BLOOD SPECIMENOrdering Facility: [facility] Address: [address] [place] [address] Performed By: #### 2 4321-2, 2776-04, ####[facility] LABORATORYCLIA [id number] [place] [address] [place] CO2 [Moles/Vol] 24 mmol/L Normal 22-30 [facility] Comment on above: Order Comment: Speci men Type: BLOOD SPECIMENOrdering Facility: [facility] Address: [address] Performed By: #### 2 4321-2, 2776-04, ####[facility] LABORATORYCLIA [id number] [place] [address] [place] Creatinine [Mass/Vol] 0.51 mg/dL Low 0.58-0.96 [facility] Comment on above: Order Comment: Speci men Type: BLOOD SPECIMENOrdering Facility: [facility] Address: [address] [place], [place] [address] Performed By: #### 2 4321-2, 2776-04, ####[facility] HOSPITALIA [id number] [address] ESTIMATED GLOMERULAR FILTRATION RATE 98 mL/min/1.73m??? Normal >=60 [facility] Comment on above: Order Comment: Sharath marta Type: BLOOD SPECIMENOrdering Facility: [facility] Address: [address] [place] [address] Result Comment: Lulu mated Glomerular Filtration Rate [...] #### 2 4321-2, 2776-04, ####[facility] HOSPITALIA [id number] [address] Glucose [Mass/Vol] 112 mg/dL High 74-99 [facility] Comment on above: Order Comment: Sharath lozano Type: BLOOD SPECIMENOrdering Facility: [facility] Address: [address] [place] [address] Result Comment: The [place] [employer] (ADA) provides guidance for cutoff [...] Standards of Medical Care in Diabetes 2016, [place] [employer]. Diabetes Care. 2016.39(Suppl 1). Performed By: #### 2 4321-2, 2777, ####[facility] HOSPITALIA [id number] [address] STATES [facility] Potassium [Moles/Vol] 3.6 mmol/L Low 3.7-5.1 [facility] Comment on above: Order Comment: Speci men Type: BLOOD SPECIMENOrdering Facility: [facility] Address: [address] [place] [address] Performed By: #### 2 4321-2, 2777-1, ####[facility] LABORATORYCLIA [id number] [address] [place] Sodium [Moles/Vol] 131 mmol/L Low 136-144 [facility] Comment on above: Order Comment: Speci men Type: BLOOD SPECIMENOrdering Facility: [facility] Address: [address] [place] [address] Performed By: #### 2 4321-2, 27710-20, ####[facility] LABORATORYCLIA [id number] [address] [place] Urea nitrogen [Mass/Vol] 10 mg/dL Normal 7-21 [facility] Comment on above: Order Comment: Speci men Type: BLOOD SPECIMENOrdering Facility: [facility] Address: [address] [place] [address] Performed By: #### 2 4321-2, 2776-04, ####[facility] LABORATORYCLIA [id number] [address] [place] Basophil percentageon 2021 Basophil percentage 10-25 SEEN /hpf 0-5 [facility] Work Phone: Bilirubin Test strip Ql (U)o n 10-07-2021 Bilirubin Ql (U) Negative Negative [facility] Work Phone: CBC panel Auto (Bld)on 10-07 Erythrocyte distribution width (RBC) [Ratio] 13.3 % Normal 11.5-15.0 [facility] Comment on above: Order Comment: Speci men Type: BLOOD SPECIMENOrdering Facility: [facility] Address: [address] [place] [address] Performed By: #### 5 8410-2 ####[facility] LABORATORYCLIA [id number] [address] Hematocrit (Bld) [Volume fraction] 28.4 % Low 36.0-46.0 [facility] Comment on above: Order Comment: Speci men Type: BLOOD SPECIMENOrdering Facility: [facility] Address: [address] [place] [address] Performed By: #### 5 8410-2 ####[facility] LABORATORYCLIA [id number] [address] Hemoglobin (Bld) [Mass/Vol] 9.6 g/dL Low 11.5-15.5 [facility] Comment on above: Order Comment: Speci men Type: BLOOD SPECIMENOrdering Facility: [facility] Address: [address] [place] [address] Performed By: #### 5 8410-2 ####[facility] LABORATORYCLIA [id number] [address] MCH (RBC) [Entitic mass] 32.1 pg Normal 26.0-34.0 [facility] Comment on above: Order Comment: Speci men Type: BLOOD SPECIMENOrdering Facility: [facility] Address: [address] [place] [address] Performed By: #### 5 8410-2 ####[facility] LABORATORYCLIA [id number] [address] MCHC (RBC) [Mass/Vol] 33.8 g/dL Normal 30.5-36.0 [facility] Comment on above: Order Comment: Speci men Type: BLOOD SPECIMENOrdering Facility: [facility] Address: [address] [place] [address] Performed By: #### 5 8410-2 ####[facility] LABORATORYCLIA [id number] [address] MCV (RBC) [Entitic vol] 95.0 fL Normal 80.0-100.0 [facility] Comment on above: Order Comment: Speci men Type: BLOOD SPECIMENOrdering Facility: [facility] Address: [address] Performed By: #### 5 8410-2 ####[facility] LABORATORYCLIA [id number] [address] [place] Nucleated RBC (Bld) [#/Vol] 10*3/uL Normal <0.01 [facility] Comment on above: Order Comment: Speci men Type: BLOOD SPECIMENOrdering Facility: [facility] Address: [address] [place] [address] Performed By: #### 5 8410-2 ####[facility] LABORATORYCLIA [id number] [address] [place] Platelet mean volume (Bld) [Entitic vol] 9.7 fL Normal 9.0-12.7 [facility] Comment on above: Order Comment: Speci men Type: BLOOD SPECIMENOrdering Facility: [facility] Address: [address] [place] [address] Performed By: #### 5 8410-2 ####[facility] LABORATORYCLIA [id number] [address] [place] Platelets (Bld) [#/Vol] 266 10*3/uL Normal 150-400 [facility] Comment on above: Order Comment: Speci men Type: BLOOD SPECIMENOrdering Facility: [facility] Address: [address] [place], [place] [address] Performed By: #### 5 8410-2 ####[facility] LABORATORYCLIA [id number] [address] [place] RBC (Bld) [#/Vol] 2.99 10*6/uL Low 3.90-5.20 [facility] Comment on above: Order Comment: Speci men Type: BLOOD SPECIMENOrdering Facility: [facility] Address: [address] [place] [address] Performed By: #### 5 8410-2 ####[facility] LABORATORYCLIA [id number] [address] [place] WBC (Bld) [#/Vol] 8.53 10*3/uL Normal 3.70-11.00 [facility] Comment on above: Order Comment: Speci men Type: BLOOD SPECIMENOrdering Facility: [facility] Address: [address] [place] [address] Performed By: #### 5 8410-2 ####[facility] LABORATORYCLIA [id number] [address] Erythrocyte distribution width (RBC) [Ratio] 13.2 % Normal 11.5-15.0 [facility] Comment on above: Order Comment: Speci men Type: BLOOD SPECIMENOrdering Facility: [facility] Address: [address] [place] [address] Performed By: #### 5 8410-2 ####[facility] LABORATORYCLIA [id number] [address] Hematocrit (Bld) [Volume fraction] 29.7 % Low 36.0-46.0 [facility] Comment on above: Order Comment: Speci men Type: BLOOD SPECIMENOrdering Facility: [facility] Address: [address] [place] [address] Performed By: #### 5 8410-2 ####[facility] LABORATORYCLIA [id number] [address] [place] Hemoglobin (Bld) [Mass/Vol] 10.2 g/dL Low 11.5-15.5 [facility] Comment on above: Order Comment: Speci men Type: BLOOD SPECIMENOrdering Facility: [facility] Address: [address] [place] [address] Performed By: #### 5 8410-2 ####[facility] LABORATORYCLIA [id number] [address] [place] MCH (RBC) [Entitic mass] 32.4 pg Normal 26.0-34.0 [facility] Comment on above: Order Comment: Speci men Type: BLOOD SPECIMENOrdering Facility: [facility] Address: [address] [place] [address] Performed By: #### 5 8410-2 ####[facility] LABORATORYCLIA [id number] [address] MCHC (RBC) [Mass/Vol] 34.3 g/dL Normal 30.5-36.0 [facility] Comment on above: Order Comment: Speci men Type: BLOOD SPECIMENOrdering Facility: [facility] Address: [address] [place] [address] Performed By: #### 5 8410-2 ####[facility] LABORATORYCLIA [id number] [address] MCV (RBC) [Entitic vol] 94.3 fL Normal 80.0-100.0 [facility] Comment on above: Order Comment: Speci men Type: BLOOD SPECIMENOrdering Facility: [facility] Address: [address] [place] [address] Performed By: #### 5 8410-2 ####[facility] LABORATORYCLIA [id number] [address] Nucleated RBC (Bld) [#/Vol] 10*3/uL Normal <0.01 [facility] Comment on above: Order Comment: Speci men Type: BLOOD SPECIMENOrdering Facility: [facility] Address: [address] [place] [address] Performed By: #### 5 8410-2 ####[facility] LABORATORYCLIA [id number] [address] Platelet mean volume (Bld) [Entitic vol] 9.9 fL Normal 9.0-12.7 [facility] Comment on above: Order Comment: Speci men Type: BLOOD SPECIMENOrdering Facility: [facility] Address: [address] [place] [address] Performed By: #### 5 8410-2 ####[facility] LABORATORYCLIA [id number] [address] OF [facility] Platelets (Bld) [#/Vol] 308 10*3/uL Normal 150-400 [facility] Comment on above: Order Comment: Speci men Type: BLOOD SPECIMENOrdering Facility: [facility] Address: [address] [place] [address] Performed By: #### 5 8410-2 ####[facility] LABORATORYCLIA [id number] [place] [address] [place] RBC (Bld) [#/Vol] 3.15 10*6/uL Low 3.90-5.20 [facility] Comment on above: Order Comment: Speci men Type: BLOOD SPECIMENOrdering Facility: [facility] Address: [address] [place] [address] Performed By: #### 5 8410-2 ####[facility] LABORATORYCLIA [id number] [address] OF [facility] WBC (Bld) [#/Vol] 18.90 10*3/uL High 3.70-11.00 [facility] Comment on above: Order Comment: Speci men Type: BLOOD SPECIMENOrdering Facility: [facility] Address: [address] [place] [address] Performed By: #### 5 8410-2 ####[facility] LABORATORYCLIA [id number] [address] [place] BLOOD TYPEon [address] [facility] Comment on above: Order Comment: Speci men Type: BLOOD SPECIMENOrdering Facility: [facility] Address: [address] [place] [address] Performed By: #### C ONABO ####[facility] BLOOD BANKCLIA [id number] [address] Rh Nom (Bld) Positive Normal [facility] Comment on above: Order Comment: Speci men Type: BLOOD SPECIMENOrdering Facility: [facility] Address: [address] [place] [address] Performed By: #### C ONABO ####[facility] BLOOD BANKCLIA [id number] [address] [place] CONSULTon 10-07-[address] [facility] CONSULT Normal [facility] CT BRAIN WO IVCONon 10-08-[address] BRAIN WO IVCON Normal [facility] CT BRAIN WO IVCON Normal [facility] CT CERVICAL SPINE WO IVCONon 10-07-2021 CT CERVICAL SPINE WO IVCON Normal [facility] CT CHEST WO IVCONon 10-08-[address] CHEST WO IVCON Normal [facility] CTA HEAD W IVCONon 2 CTA HEAD W IVCON Normal [facility] CTA NECK W IVCONon 2 CTA NECK W IVCON Normal [facility] Calcium.ionized [Moles/Vol]o n 10-07-2021 Calcium.ionized (BldV) [Mass/Vol] 1.00 mmol/L Low 1.08-1.30 [facility] Comment on above: Order Comment: Speci men Type: BLOOD SPECIMENOrdering Facility: [facility] Address: [address] [place] [address] Performed By: #### 1 995-0 ####[facility] LABORATORYCLIA [id number] [address] Calcium.ionized adjusted to pH 7.4 (Bld) [Moles/Vol] 0.96 mmol/L Low 1.08-1.30 [facility] Comment on above: Order Comment: Speci men Type: BLOOD SPECIMENOrdering Facility: [facility] Address: [address] [place] [address] Performed By: #### 1 995-0 ####[facility] LABORATORYCLIA [id number] [address] [place] Comprehensive metabolic 2000 panelon 10-07-2021 Albumin [Mass/Vol] 4.0 g/dL Normal 3.9-4.9 [facility] Comment on above: Order Comment: Speci men Type: BLOOD SPECIMENOrdering Facility: [facility] Address: [address] [place] [address] Performed By: #### 2 4323-8 ####[facility] LABORATORYCLIA [id number] [address] STATES [facility] ALP [Catalytic activity/Vol] 66 U/L Normal 34-123 [facility] Comment on above: Order Comment: Speci men Type: BLOOD SPECIMENOrdering Facility: [facility] Address: [address] [place] [address] Performed By: #### 2 4323-8 ####[facility] LABORATORYCLIA [id number] [address] ALT With P-5'-P [Catalytic activity/Vol] 21 U/L Normal 7-38 [facility] Comment on above: Order Comment: Speci men Type: BLOOD SPECIMENOrdering Facility: [facility] Address: [address] [place] [address] Performed By: #### 2 4323-8 ####[facility] LABORATORYCLIA [id number] [address] STATES [facility] Anion gap [Moles/Vol] 10 mmol/L Normal 9-18 [facility] Comment on above: Order Comment: Speci men Type: BLOOD SPECIMENOrdering Facility: [facility] Address: [address] [place] [address] Performed By: #### 2 4323-8 ####[facility] LABORATORYCLIA [id number] [address] AST With P-5'-P [Catalytic activity/Vol] 39 U/L High 13-35 [facility] Comment on above: Order Comment: Speci men Type: BLOOD SPECIMENOrdering Facility: [facility] Address: [address] [place] [address] Performed By: #### 2 4323-8 ####[facility] LABORATORYCLIA [id number] [address] Bilirubin [Mass/Vol] 0.5 mg/dL Normal 0.2-1.3 [facility] Comment on above: Order Comment: Speci men Type: BLOOD SPECIMENOrdering Facility: [facility] Address: [facility] [place] [address] Performed By: #### 2 4323-8 ####[facility] LABORATORYCLIA [id number] [place] [address] [place] Calcium [Mass/Vol] 8.1 mg/dL Low 8.5-10.2 [facility] Comment on above: Order Comment: Speci men Type: BLOOD SPECIMENOrdering Facility: [facility] Address: [address] [place] [address] Performed By: #### 2 4323-8 ####[facility] LABORATORYCLIA [id number] [place] [address] [place] Chloride [Moles/Vol] 93 mmol/L Low 97-105 [facility] Comment on above: Order Comment: Speci men Type: BLOOD SPECIMENOrdering Facility: [facility] Address: [address] [place] [address] Performed By: #### 2 4323-8 ####[facility] LABORATORYCLIA [id number] [place] [address] [place] CO2 [Moles/Vol] 25 mmol/L Normal 22-30 [facility] Comment on above: Order Comment: Speci men Type: BLOOD SPECIMENOrdering Facility: [facility] Address: [address] [place] [address] Performed By: #### 2 4323-8 ####[facility] LABORATORYCLIA [id number] [place] [address] [place] Creatinine [Mass/Vol] 0.60 mg/dL Normal 0.58-0.96 [facility] Comment on above: Order Comment: Speci men Type: BLOOD SPECIMENOrdering Facility: [facility] Address: [address] [place] [address] Performed By: #### 2 4323-8 ####[facility] LABORATORYCLIA [id number] [place] [id number] [place] ESTIMATED GLOMERULAR FILTRATION RATE 94 mL/min/1.73m??? Normal >=60 [facility] Comment on above: Order Comment: Sharath lozano Type: BLOOD SPECIMENOrdering Facility: [facility] Address: [address] [place] [address] Result Comment: Lulu mated Glomerular Filtration Rate [...] actual GFR. Performed By: #### 2 4323-8 ####[facility] LABORATORYCLIA [id number] [place] [address] [place] Glucose [Mass/Vol] 143 mg/dL High 74-99 [facility] Comment on above: Order Comment: Sharath lozano Type: BLOOD SPECIMENOrdering Facility: [facility] Address: [address] [place] [address] Result Comment: The [place] [employer] (ADA) provides guidance for cutoff [...] Standards of Medical Care in Diabetes 2016, [place] [employer]. Diabetes Care. 2016.39(Suppl 1). Performed By: #### 2 4323-8 ####[facility] LABORATORYCLIA [id number] [place] [id number] [place] Potassium [Moles/Vol] 3.8 mmol/L Normal 3.7-5.1 [facility] Comment on above: Order Comment: Speci men Type: BLOOD SPECIMENOrdering Facility: [facility] Address: [address] [place] [address] Performed By: #### 2 4323-8 ####[facility] LABORATORYCLIA [id number] [address] Protein [Mass/Vol] 6.0 g/dL Low 6.3-8.0 [facility] Comment on above: Order Comment: Speci men Type: BLOOD SPECIMENOrdering Facility: [facility] Address: [address] [place] [address] Performed By: #### 2 4323-8 ####[facility]ORATORYCLIA [id number] [address] Sodium [Moles/Vol] 128 mmol/L Low 136-144 [facility] Comment on above: Order Comment: Speci men Type: BLOOD SPECIMENOrdering Facility: [facility] Address: [address] [place] [address] Performed By: #### 2 4323-8 ####[facility] LABORATORYCLIA [id number] [address] Urea nitrogen [Mass/Vol] 16 mg/dL Normal 7-21 [facility] Comment on above: Order Comment: Speci men Type: BLOOD SPECIMENOrdering Facility: [facility] Address: [address] [place] [address] Performed By: #### 2 4323-8 ####[facility] LABORATORYCLIA [id number] [address] ED NOTEon 10-07-2021 ED NOTE HNO ID: [id number] Author: Catehrine Covarrubias RN Service: ? Author Type: Registered Nurse Type: ED Notes Filed: 10/07/2021 2:48 AM Note Text: Bed: 19-ED Expected date: Expected time: Means of arrival: Comments: T2-transfer Normal [facility] ED NOTE HNO ID: [id number] Author: Giuliana Rodriguez RN Service: Emergency Medicine Author Type: Registered Nurse Type: ED Notes Filed: 10/07/2021 2:36 AM Note Text: Chest tube + for bloody output Levin +clear yellow urine Normal [facility] ED NOTE Normal [facility] ED PROV NOTEon 10-07-[address] [facility] Ethanol SerPl-mCncon 022 Ethanol [Mass/Vol] mg/dL Normal <11 [facility] Comment on above: Order Comment: Speci men Type: BLOOD SPECIMENOrdering Facility: [facility] Address: [address] [place] [address] Performed By: #### 5 643-2 ####[facility] LABORATORYCLIA [id number] [address] [place] HISTORY PHYSICALon HISTORY PHYSICAL Normal [facility] INR in Blood by Coagulation assayon 10-07-2021 INR Coag (Bld) [Relative time] 1.2 {INR} [facility] Work Phone: Ketones Test strip Ql (U)on 10-07-2021 Ketones Ql (U) Negative Negative [facility] Work Phone: Laboratory - Coagulationon 0 10-07-2021 aPTT Coag (Bld) [Time] 29.6 s 24.1-36.2 [facility] Work Phone: PT Coag (PPP) [Time] 14.6 s 11.7-14.9 [facility] Work Phone: Magnesium SerPl-mCncon 10-07 Magnesium [Mass/Vol] 2.2 mg/dL Normal 1.7-2.3 [facility] Comment on above: Order Comment: Speci men Type: BLOOD SPECIMENOrdering Facility: [facility] Address: [address] [place] [address] Performed By: #### 2 4321-2, 2777-1, 89612-7 ####[facility] LABORATORYCLIA [id number] [address] [place] Magnesium [Mass/Vol] 1.5 mg/dL Low 1.7-2.3 [facility] Comment on above: Order Comment: Speci men Type: BLOOD SPECIMENOrdering Facility: [facility] Address: [address] [place] [address] Performed By: #### 1 9123-9, 2777-1 ####[facility] LABORATORYCLIA [id number] [address] Mucus LM Ql (Urine sed)on Mucus Ql (Urine sed) 0 SEEN /hpf [facility] Work Phone: Nitrite Test strip Ql (U)on 10-07-2021 Nitrite Ql (U) Negative Negative [facility] Work Phone: PT panel Coag (PPP)on 2021 INR Coag (PPP) [Relative time] 1.0 {INR} Normal 0.9-1.3 [facility] Comment on above: Order Comment: Speci men Type: BLOOD SPECIMENOrdering Facility: [facility] Address: [address] [place] [id number] Result Comment: Ana min K Antagonist (VKA) Therapeutic Range: INR 2 to 3 (Target INR of 2.5)Note: For patients treated with VKA drugs, such as warfarin, the [employer] 2012 Guideline recommends [...] 2.5 to 3.5 (target INR of 3).Tierra CAST, et al. Chest 2012, 141:7S-47SSofía VALE, et al. [facility] 2017, 70: 252-289 Performed By: #### 1 4979-9, 83098-4 ####[facility]ENTERIA [id number] [place] [address] [place] PT Coag (PPP) [Time] 11.1 s Normal 9.7-13.0 [facility] Comment on above: Order Comment: Speci men Type: BLOOD SPECIMENOrdering Facility: [facility] Address: [address] [place] [address] Performed By: #### 1 4979-9, 52206-5 ####[facility] [facility] [id number] [place] [id number] [place] Phosphate SerPl-mCncon 10-07 Phosphate [Mass/Vol] 3.4 mg/dL Normal 2.7-4.8 [facility] Comment on above: Order Comment: Speci men Type: BLOOD SPECIMENOrdering Facility: [facility] Address: [address] [place] [address] Performed By: #### 2 4321-2, 2777-1, 19718-4 ####[facility] [facility] [id number] [place] [address] [place] Phosphate [Mass/Vol] 3.4 mg/dL Normal 2.7-4.8 [facility] Comment on above: Order Comment: Speci men Type: BLOOD SPECIMENOrdering Facility: [facility] Address: [address] [place] [address] Performed By: #### 1 9123-9, 2777-1 ####[facility] [facility] [id number] [place] [id number] [place] Protein Test strip Ql (U)on 10-07-2021 Protein Ql (U) 15 mg/dl Negative [facility] Work Phone: SARS-CoV-2 RNA Resp Ql LEONA+p robeon 10-07-2021 SARS-CoV-2 (COVID-19) RNA LEONA+probe Ql (Resp) COVID 19 RESULT: SARS-CoV-2 (Agent of COVID-19) Not Detected by RT-PCR or equivalent method. This test has been authorized by FDA under an Emergency Use Authorization (EUA). Normal [facility] Comment on above: Performed By: #### 9 4500-6 ####[facility]ORY[facility] [id number] [address] [place] STAPH AUREUS PCRon 2 S. aureus and MRSA panel LEONA+probe (Nose) Normal Negative [facility] Comment on above: Order Comment: Speci men Type: SWAB OF INTERNAL NOSEOrdering Facility: [facility] Address: [address] [place] [address] Result Comment: Nega tive for Staphylococcus aureus by PCR.Negative for MRSA by PCR Performed By: #### S APCR ####[facility]ORYCLIA [id number] [address] [place] Squamous epithelial cells de tection in urine sediment by light microscopyon 10-07-2021 Epithelial cells.squamous LM Ql (Urine sed) 0 SEEN /hpf 5-10 [facility] Work Phone: TOX SCREEN ROUT URon 022 Amphetamines Confirm (U) [Mass/Vol] Negative Normal Negative [facility] Comment on above: Order Comment: Speci men Type: URINE SPECIMENOrdering Facility: [facility] Address: [address] [place] [address] Result Comment: Cuto ff threshold at 1000 ng/mL. Performed By: #### U TOX2 ####[facility]ORYCLIA [id number] [place] [address] [place] BARBITURATES, URINE Negative Normal Negative [facility] Comment on above: Order Comment: Speci men Type: URINE SPECIMENOrdering Facility: [facility] Address: [address] [place] [address] Result Comment: Cuto ff threshold at 200 ng/mL. Performed By: #### U TOX2 ####[facility]ORYCLIA [id number] [place] [address] [place] BENZODIAZEPINES, UR Negative Normal Negative [facility] Comment on above: Order Comment: Speci men Type: URINE SPECIMENOrdering Facility: [facility] Address: [address] [place] [place] [address] Result Comment: Cuto ff threshold at 200 ng/mL. Performed By: #### U TOX2 ####[facility]ORYCLIA [id number] [address] CANNABINOIDS,URINE Negative Normal Negative [facility] Comment on above: Order Comment: Speci men Type: URINE SPECIMENOrdering Facility: [facility] Address: [address] [place] [address] Result Comment: Cuto ff threshold at 50 ng/mL. Performed By: #### U TOX2 ####[facility]ORY[facility]IA [id number] [address] Cocaine Ql (U) Negative Normal Negative [facility] Comment on above: Order Comment: Speci men Type: URINE SPECIMENOrdering Facility: [facility] Address: [address] [place] [address] Result Comment: Cuto ff threshold at 300 ng/mL. Performed By: #### U TOX2 ####[facility]ORYCLIA [id number] [address] STATES [facility] Ethanol (U) [Mass/Vol] <11 Normal <11 [facility] Comment on above: Order Comment: Speci men Type: URINE SPECIMENOrdering Facility: [facility] Address: [address] [place] [address] Performed By: #### U TOX2 ####[facility]ORYCLIA [id number] [address] OF [facility] Opiates Screen Ql (U) Positive Abnormal Negative [facility] Comment on above: Order Comment: Speci men Type: URINE SPECIMENOrdering Facility: [facility] Address: [address] [place] [address] Result Comment: Cuto ff threshold at 300 ng/mL. Performed By: #### U TOX2 ####[facility]ORYCLIA [id number] [address] [place] oxyCODONE cutoff Screen (U) [Mass/Vol] Negative Normal Negative [facility] Comment on above: Order Comment: Speci men Type: URINE SPECIMENOrdering Facility: [facility] Address: [address] [place] [address] Result Comment: Cuto ff threshold at 100 ng/mL. Performed By: #### U TOX2 ####[facility]ORYCLIA [id number] [address] Phencyclidine Ql (U) Negative Normal Negative [facility] Comment on above: Order Comment: Speci men Type: URINE SPECIMENOrdering Facility: [facility] Address: [address] [place] [address] Result Comment: Cuto ff threshold at 25 ng/mL. Performed By: #### U TOX2 ####[facility]ORYCLIA [id number] [address] TYPE + SCREENon 10-07-[address] [facility] Comment on above: Order Comment: Speci men Type: BLOOD SPECIMENOrdering Facility: [facility] Address: [address] [place] [address] Performed By: #### T SCR ####[facility] BANKCLIA [id number] [address] HISTORICAL AB SCR STATUS Negative Normal [facility] Comment on above: Order Comment: Speci men Type: BLOOD SPECIMENOrdering Facility: [facility] Address: [address] [place] [address] Performed By: #### T SCR ####[facility]ANKCLIA [id number] [address] Rh Nom (Bld) Positive Normal [facility] Comment on above: Order Comment: Speci men Type: BLOOD SPECIMENOrdering Facility: [facility] Address: [address] [place] [address] Performed By: #### T SCR ####[facility]ANKCLIA [id number] [address] TYPE AND SCREEN EXPIRATION 10/10/2021 23:[address] [facility] Comment on above: Order Comment: Speci men Type: BLOOD SPECIMENOrdering Facility: [facility] Address: [address] [place] [address] Performed By: #### T SCR ####[facility]ANKCLIA [id number] [address] Urinalysis complete panel (U )on 10-07-2021 Bilirubin Ql (U) Negative Normal Negative [facility] Comment on above: Order Comment: Speci men Type: URINE SPECIMENOrdering Facility: [facility] Address: [address] [place] [address] Performed By: #### 2 4356-8 ####[facility]ORYCLIA [id number] [address] Clarity (Unsp spec) Clear Normal Clear [facility] Comment on above: Order Comment: Speci men Type: URINE SPECIMENOrdering Facility: [facility] Address: [address] [place] [address] Performed By: #### 2 4356-8 ####[facility]ORYIA [id number] [address] Color (U) Light Yellow Normal yellow [facility] Comment on above: Order Comment: Speci men Type: URINE SPECIMENOrdering Facility: [facility] Address: [address] [place] [address] Performed By: #### 2 4356-8 ####[facility]ORYCLIA [id number] [address] Glucose Test strip (U) [Mass/Vol] Negative Normal Negative [facility] Comment on above: Order Comment: Speci men Type: URINE SPECIMENOrdering Facility: [facility] Address: [address] [place] [address] Performed By: #### 2 4356-8 ####[facility]ORYCLIA [id number] [address] Hemoglobin Ql (U) Negative Normal Negative [facility] Comment on above: Order Comment: Speci men Type: URINE SPECIMENOrdering Facility: [facility] Address: [address] [place] [address] Performed By: #### 2 4356-8 ####[facility]ATORYCLIA [id number] [address] Ketones Ql (U) Negative Normal Negative [facility] Comment on above: Order Comment: Speci men Type: URINE SPECIMENOrdering Facility: [facility] Address: [address] [place] [address] Performed By: #### 2 4356-8 ####[facility]ORYCLIA [id number] [address] Leukocyte esterase Test strip Ql (U) 500 Karson/mL Abnormal Negative [facility] Comment on above: Order Comment: Speci men Type: URINE SPECIMENOrdering Facility: [facility] Address: [address] [place] [address] Performed By: #### 2 4356-8 ####[facility]ORYCLIA [id number] [address] Nitrite Ql (U) Negative Normal Negative [facility] Comment on above: Order Comment: Speci men Type: URINE SPECIMENOrdering Facility: [facility] Address: [address] [place] [address] Performed By: #### 2 4356-8 ####[facility]ORYCLIA [id number] [address] [place] pH (U) 6.5 [pH] Normal 5.0-8.0 [facility] Comment on above: Order Comment: Speci men Type: URINE SPECIMENOrdering Facility: [facility] Address: [address] [place] [address] Performed By: #### 2 4356-8 ####[facility]ORYCLIA [id number] [address] [place] Protein (U) [Mass/Vol] Negative Normal Negative [facility] Comment on above: Order Comment: Speci men Type: URINE SPECIMENOrdering Facility: [facility] Address: [address] [place] [address] Performed By: #### 2 4356-8 ####[facility]ORYCLIA [id number] [address] STATES [facility] RBC LM.HPF (Urine sed) [#/Area] 0-3 /HPF Normal 0-3 /HPF [facility] Comment on above: Order Comment: Speci men Type: URINE SPECIMENOrdering Facility: [facility] Address: [address] [place] [address] Performed By: #### 2 4356-8 ####[facility]IA [id number] [address] Specific gravity (U) [Rel density] >1.040 High 1.005-1.030 [facility] Comment on above: Order Comment: Speci men Type: URINE SPECIMENOrdering Facility: [facility] Address: [address] [place] [address] Performed By: #### 2 4356-8 ####[facility]ORYCLIA [id number] [address] Urobilinogen Ql (U) Normal Normal Negative [facility] Comment on above: Order Comment: Speci men Type: URINE SPECIMENOrdering Facility: [facility] Address: [address] [place] [address] Performed By: #### 2 4356-8 ####[facility]ORYCLIA [id number] [address] WBC LM.HPF (Urine sed) [#/Area] /[HPF] Abnormal 0-5 /HPF [facility] Comment on above: Order Comment: Speci men Type: URINE SPECIMENOrdering Facility: [facility] Address: [address] [place] [address] Performed By: #### 2 4356-8 ####[facility]ATORYCLIA [id number] [place] [address] [place] Urine blood detectionon 09-20 RBC Ql (U) Negative Negative [facility] Work Phone: RBC Ql (U) 0-5 SEEN /hpf 0-5 [facility] Work Phone: Urine clarityon 10-07-2021 Clarity (U) Clear Clear [facility] Work Phone: Urine color determinationon 10-07-2021 Color (U) Yellow Yellow [facility] Work Phone: Urine glucose detectionon Glucose Ql (U) Normal mg/dl Normal [facility] Work Phone: Urine leukocyte esterase det ection by dipstickon 10-07-2021 Leukocyte esterase Test strip Ql (U) 100 /ul Negative [facility] Work Phone: Urine pHon 10-07-2021 pH (U) 7.0 [pH] 5.0 - 8.0 [facility] Work Phone: Urine sediment bacteria coun t by microscopy (number/high power field)on 10-07-2021 Bacteria LM.HPF (Urine sed) [#/Area] 3 /[HPF] None Seen [facility] Work Phone: Urine specific gravity measu rementon 10-07-2021 Specific gravity (U) [Rel density] 1.010 1.002-1.030 [facility] Work Phone: Urobilinogen Auto test strip Ql (U)on 10-07-2021 Urobilinogen Ql (U) Normal mg/dl Normal [facility] Work Phone: XR CHEST 1V FRONTALon 2021 XR CHEST 1V FRONTAL Normal [facility] XR KNEE 2V AP/LAT RTon 10-07 XR KNEE 2V AP/LAT RT Normal [facility] aPTT PPPon 10-07-2021 aPTT Coag (PPP) [Time] 26.3 s Normal 23.0-32.4 [facility] Comment on above: Order Comment: Speci men Type: BLOOD SPECIMENOrdering Facility: [facility] Address: [facility] [place] [address] Performed By: #### 1 4979-9, 23414-9 ####[facility]ATORYCLIA [id number] [place] [address] [place] Absolute lymphocyte counton 10-06-2021 Lymphocytes Auto (Unsp spec) [#/Vol] 0.86 10*3/uL 0.83-4.51 [facility] Work Phone: Basophil percentageon 2021 Basophils/100 WBC (Bld) 0.3 % 0-1 [facility] Work Phone: Bilirubin [Mass/Vol] 0.50 mg/dL 0.20-1.00 [facility] Work Phone: Comment on above: For patients on eltr ombopag therapy, use of Dimension [place] TBIL is not recommended. Chloride [Moles/Vol] 96 mmol/L 98-107 [facility] Work Phone: Eosinophils/100 WBC (Bld) 0.3 % 0-5 [facility] Work Phone: Glucose [Mass/Vol] 169 mg/dL 74-106 [facility] Work Phone: Comment on above: Fasting Glucose resu lt greater than or equal to 126 mg/dL suggests DIABETES MELLITUS per A.D.A. criteria. Neutrophils (Bld) [#/Vol] 28.5 10*3/uL 2.0-7.7 [facility] Work Phone: Neutrophils/100 WBC (Bld) 90.5 % 47-70 [facility] Work Phone: Potassium [Moles/Vol] 3.1 mmol/L 3.5-5.1 [facility] Work Phone: Protein [Mass/Vol] 6.5 g/dL 6.4-8.2 [facility] Work Phone: Sodium [Moles/Vol] 130 mmol/L 136-145 [facility] Work Phone: [phone] WBC (Bld) [#/Vol] 31.5 10*3/uL 4.4-11.0 [facility] Work Phone: [phone] Comment on above: CRITICAL VALUE VERIF IED. CALLED TO GIANNA CHAIREZ10/06/21 Ronen Anand Bolton.RESULTS READ BACK BY SAME . Blood erythrocytes count (nu mber/volume)on 10-06-2021 RBC (Bld) [#/Vol] 3.16 10*6/uL 4.2-5.4 [facility] Work Phone: [phone] Blood hemoglobin measurement (mass/volume)on 10-06-2021 Hemoglobin (Bld) [Mass/Vol] 10.3 g/dL 12.0-15.0 [facility] Work Phone: [phone] Blood lymphocytes/100 leukoc yteson 10-06-2021 Lymphocytes/100 WBC (Bld) 2.7 % 19-41 [facility] Work Phone: [phone] Blood manual differential co mment interpretation (narrative result)on 10-06-2021 Manual differential comment Donnie (Bld) [Interp] SCANNED [facility] Work Phone: [phone] Blood monocytes/100 leukocyt eson 10-06-2021 Monocytes/100 WBC (Bld) 5.3 % 0-10 [facility] Work Phone: [phone] Blood platelet mean volumeon 10-06-2021 Platelet mean volume (Bld) [Entitic vol] 9.9 fL 6.2-12.0 [facility] Work Phone: [phone] Determination of erythrocyte mean corpuscular volume (MCV)on 10-06-2021 MCV (RBC) [Entitic vol] 95.6 fL 81-99 [facility] Work Phone: [phone] Hematocrit Auto (Bld) [Volum e fraction]on 10-06-2021 Hematocrit (Bld) [Volume fraction] 30.2 % 37-47 [facility] Work Phone: [phone] Laboratory - Chemistry and C hemistry - challengeon 10-06-2021 ALP [Catalytic activity/Vol] 62 U/L 45-117 [facility] Work Phone: [phone] ALT [Catalytic activity/Vol] 26 U/L 13-56 [facility] Work Phone: [phone] CO2 [Moles/Vol] 27.0 mmol/L 21.0-32.0 [facility] Work Phone: [phone] Globulin (S) [Mass/Vol] 2.9 g/dL 2.2-4.2 [facility] Work Phone: [phone] Urea nitrogen/Creatinine [Mass ratio] 23.8 mg/mg 10-20 [facility] Work Phone: [phone] Laboratory - Hematology and Cell countson 10-06-2021 Erythrocyte distribution width (RBC) [Entitic vol] 45.3 fL 35.1-43.9 [facility] Work Phone: [phone] Erythrocyte distribution width (RBC) [Ratio] 12.8 % 11.6-14.6 [facility] Work Phone: [phone] Immature granulocytes/100 WBC (Bld) 0.900 % 0.0-0.9 [facility] Work Phone: [phone] Comment on above: IG% - Immature Granu locytes (promyelocytes, myelocytes and metamyelocytes) > 1% indicates that a LEFT SHIFT is Present. MCH (RBC) [Entitic mass] 32.6 pg 27.0-32.0 [facility] Work Phone: [phone] Nucleated RBC/100 WBC (Bld) [Ratio] 0 % 0-5 [facility] Work Phone: [phone] MCHC Auto (RBC) [Mass/Vol]on 10-06-2021 MCHC (RBC) [Mass/Vol] 34.1 g/dL 32-36 [facility] Work Phone: [phone] No Panel Informationon 10-06 Estimated Creatinine Clearance Calc 54.70 ml/min [facility] Work Phone: [phone] Estimated GFR (MDRD) Amer 85 mL/min >60 [facility] Work Phone: Comment on above: GFR Calc Estimated GFR (MDRD) Non-Af Amer 70 mL/min >60 [facility] Work Phone: Comment on above: Non- GFR Calc Ethyl Alcohol Level < 3.0 mg/dL [facility] Work Phone: Comment on above: The serum:whole bloo d ethanol ratio is approximately 1.14and varies slightly with hematocrit. Medical Alcohol reference interval and critical value innon-tolerant individuals; 50 - 100 Impairment 100 Intoxication 100 - 250 Severe Poisoning 250 - 400 Deep/possible fatal coma Platelets bldon 10-06-2021 Platelets (Bld) [#/Vol] 317 10*3/uL 150-450 [facility] Work Phone: Review by pathologiston 09-20 Pathologist review Donnie (Unsp spec) [Interp] Nohelia mcdowell [facility] Work Phone: Pathologist review Donnie (Unsp spec) [Interp] Reviewed [facility] Work Phone: Comment on above: Previous reported re sult: Nohelia mcdowell Edited by: RGOOD on 10/09/21:1330Neutrophilic leukocytosis.Normocytic anemia.Clinical correlation necessary.Greg Guerin M.D. 10/09/21 AMENDED REPORT 10/09/21 1330 PATH REV previously reported as: Nohelia mcdowell Serum or plasma albumin rajni urement (mass/volume)on 10-06-2021 Albumin [Mass/Vol] 3.6 g/dL 3.2-5.0 [facility] Work Phone: [phone] Serum or plasma albumin/glob ulin mass ratioon 10-06-2021 Albumin/Globulin [Mass ratio] 1.2 {ratio} 0.9-2.4 [facility] Work Phone: [phone] Serum or plasma calcium rajni urement (mass/volume)on 10-06-2021 Calcium [Mass/Vol] 8.2 mg/dL 8.5-10.1 [facility] Work Phone: Serum or plasma creatinine m easurement (mass/volume)on 10-06-2021 Creatinine [Mass/Vol] 0.84 mg/dL 0.55-1.02 [facility] Work Phone: Comment on above: The validity of the calculated GFR & GFRAA in patients over 70 years has not been determined. Clinical correlation is essential. Serum or plasma urea nitroge n measurement (mass/volume)on 10-06-2021 Urea nitrogen [Mass/Vol] 20 mg/dL 7-18 [facility] Work Phone: Thin prep Papanicolaou smear with manual screeningon 10-06-2021 Thin prep Papanicolaou smear with manual screening 31 U/L 15-37 [facility] Work Phone: Thin prep Papanicolaou smear with manual screening 7 5-15 [facility] Work Phone: Laboratory - Chemistry and C hemistry - challengeon 07-28-2021 Free T4 [Mass/Vol] 1.04 ng/dL 0.76-1.46 [facility] Work Phone: No Panel Informationon 07-28 Thyroid Stimulating Hormone (TSH) 2.21 uIU/mL 0.358-3.74 [facility] Work Phone: Influenza virus A and B RNA and SARS-CoV-2 (COVID-19) N gene panel LEONA+probe (Resp)on 07-13-2021 FLUAV RNA LEONA+probe Ql (Unsp spec) Negative Negative for Influenza A by RT-PCR [facility] FLUBV RNA LEONA+probe Ql (Unsp spec) Negative Negative for Influenza B by RT-PCR [facility] SARS-CoV-2 (COVID-19) RNA LEONA+probe Ql (Resp) SARS-CoV-2 (Agent of COVID-19) Not Detected by RT-PCR or equivalent method. Not Detected [facility] Absolute lymphocyte counton 06-11-2021 Lymphocytes Auto (Unsp spec) [#/Vol] 1.63 10*3/uL 0.83-4.51 [facility] Work Phone: Basophil percentageon 2021 Basophil percentage 0 SEEN /hpf 0-5 [facility] Work Phone: Basophils/100 WBC (Bld) 0.5 % 0-1 [facility] Work Phone: Chloride [Moles/Vol] 99 mmol/L 98-107 [facility] Work Phone: Eosinophils/100 WBC (Bld) 1.4 % 0-5 [facility] Work Phone: Glucose [Mass/Vol] 110 mg/dL 74-106 [facility] Work Phone: Comment on above: Fasting Glucose resu lt from 100 to 125 mg/dL suggests IMPAIRED HOMEOSTASIS per A.D.A. criteria. Neutrophils (Bld) [#/Vol] 9.6 10*3/uL 2.0-7.7 [facility] Work Phone: Neutrophils/100 WBC (Bld) 78.8 % 47-70 [facility] Work Phone: Potassium [Moles/Vol] 3.8 mmol/L 3.5-5.1 [facility] Work Phone: Sodium [Moles/Vol] 135 mmol/L 136-145 [facility] Work Phone: WBC (Bld) [#/Vol] 12.1 10*3/uL 4.4-11.0 [facility] Work Phone: Bilirubin Test strip Ql (U)o n 06-11-2021 Bilirubin Ql (U) Negative Negative [facility] Work Phone: Blood erythrocytes count (nu mber/volume)on 06-11-2021 RBC (Bld) [#/Vol] 3.84 10*6/uL 4.2-5.4 [facility] Work Phone: Blood hemoglobin measurement (mass/volume)on 06-11-2021 Hemoglobin (Bld) [Mass/Vol] 12.6 g/dL 12.0-15.0 [facility] Work Phone: Blood lymphocytes/100 leukoc yteson 06-11-2021 Lymphocytes/100 WBC (Bld) 13.4 % 19-41 [facility] Work Phone: Blood monocytes/100 leukocyt eson 06-11-2021 Monocytes/100 WBC (Bld) 5.6 % 0-10 [facility] Work Phone: Blood platelet mean volumeon 06-11-2021 Platelet mean volume (Bld) [Entitic vol] 10.4 fL 6.2-12.0 [facility] Work Phone: Determination of erythrocyte mean corpuscular volume (MCV)on 06-11-2021 MCV (RBC) [Entitic vol] 94.5 fL 81-99 [facility] Work Phone: Hematocrit Auto (Bld) [Volum e fraction]on 06-11-2021 Hematocrit (Bld) [Volume fraction] 36.3 % 37-47 [facility] Work Phone: Ketones Test strip Ql (U)on 06-11-2021 Ketones Ql (U) Negative Negative [facility] Work Phone: Laboratory - Chemistry and C hemistry - challengeon 06-11-2021 CO2 [Moles/Vol] 28.0 mmol/L 21.0-32.0 [facility] Work Phone: Urea nitrogen/Creatinine [Mass ratio] 27.0 mg/mg - [facility] Work Phone: Laboratory - Hematology and Cell countson 06-11-2021 Erythrocyte distribution width (RBC) [Entitic vol] 45.8 fL 35.1-43.9 [facility] Work Phone: Erythrocyte distribution width (RBC) [Ratio] 13.2 % 11.6-14.6 [facility] Work Phone: Immature granulocytes/100 WBC (Bld) 0.300 % 0.0-0.9 [facility] Work Phone: Comment on above: IG% - Immature Granu locytes (promyelocytes, myelocytes and metamyelocytes) > 1% indicates that a LEFT SHIFT is Present. MCH (RBC) [Entitic mass] 32.8 pg 27.0-32.0 [facility] Work Phone: Nucleated RBC/100 WBC (Bld) [Ratio] 0 % 0-5 [facility] Work Phone: MCHC Auto (RBC) [Mass/Vol]on 06-11-2021 MCHC (RBC) [Mass/Vol] 34.7 g/dL 32-36 [facility] Work Phone: Mucus LM Ql (Urine sed)on Mucus Ql (Urine sed) 0 SEEN /hpf [facility] Work Phone: Nitrite Test strip Ql (U)on 06-11-2021 Nitrite Ql (U) Negative Negative [facility] Work Phone: No Panel Informationon 06-11 Estimated Creatinine Clearance Calc 42.62 ml/min [facility] Work Phone: [phone] Estimated GFR (MDRD) Amer 149 mL/min >60 [facility] Work Phone: Comment on above: GFR Calc Estimated GFR (MDRD) Non-Af Amer 123 mL/min >60 [facility] Work Phone: Comment on above: Non- GFR Calc Platelets bldon 06-11-2021 Platelets (Bld) [#/Vol] 301 10*3/uL 150-450 [facility] Work Phone: Protein Test strip Ql (U)on 06-11-2021 Protein Ql (U) Negative Negative [facility] Work Phone: [phone] Serum or plasma calcium rajni urement (mass/volume)on 06-11-2021 Calcium [Mass/Vol] 9.4 mg/dL 8.5-10.1 [facility] Work Phone: [phone] Serum or plasma creatinine m easurement (mass/volume)on 06-11-2021 Creatinine [Mass/Vol] 0.52 mg/dL 0.55-1.02 [facility] Work Phone: Comment on above: The validity of the calculated GFR & GFRAA in patients over 70 years has not been determined. Clinical correlation is essential. Serum or plasma urea nitroge n measurement (mass/volume)on 06-11-2021 Urea nitrogen [Mass/Vol] 14 mg/dL 7-18 [facility] Work Phone: Squamous epithelial cells de tection in urine sediment by light microscopyon 06-11-2021 Epithelial cells.squamous LM Ql (Urine sed) 0 SEEN /hpf 5-10 [facility] Work Phone: Thin prep Papanicolaou smear with manual screeningon 06-11-2021 Thin prep Papanicolaou smear with manual screening 8 5-15 [facility] Work Phone: Urine blood detectionon - RBC Ql (U) Negative Negative [facility] Work Phone: RBC Ql (U) 0 SEEN /hpf 0-5 [facility] Work Phone: Urine clarityon 06-11-2021 Clarity (U) Clear Clear [facility] Work Phone: Urine color determinationon 06-11-2021 Color (U) Yellow Yellow [facility] Work Phone: Urine glucose detectionon Glucose Ql (U) Normal mg/dl Normal [facility] Work Phone: Urine leukocyte esterase det ection by dipstickon 06-11-2021 Leukocyte esterase Test strip Ql (U) Negative Negative [facility] Work Phone: Urine pHon 06-11-2021 pH (U) 7.0 [pH] 5.0 - 8.0 [facility] Work Phone: [phone] Urine sediment bacteria coun t by microscopy (number/high power field)on 06-11-2021 Bacteria LM.HPF (Urine sed) [#/Area] 0 /[HPF] None Seen [facility] Work Phone: Urine specific gravity measu rementon 06-11-2021 Specific gravity (U) [Rel density] 1.010 1.002-1.030 [facility] Work Phone: Urobilinogen Auto test strip Ql (U)on 06-11-2021 Urobilinogen Ql (U) Normal mg/dl Normal [facility] Work Phone: Absolute lymphocyte counton 05-21-2021 Lymphocytes Auto (Unsp spec) [#/Vol] 1.29 10*3/uL 0.83-4.51 [facility] Work Phone: Basophil percentageon 2021 Basophils/100 WBC (Bld) 0.7 % 0-1 [facility] Work Phone: Chloride [Moles/Vol] 98 mmol/L 98-107 [facility] Work Phone: Eosinophils/100 WBC (Bld) 2.5 % 0-5 [facility] Work Phone: Glucose [Mass/Vol] 119 mg/dL 74-106 [facility] Work Phone: Comment on above: Fasting Glucose resu lt from 100 to 125 mg/dL suggests IMPAIRED HOMEOSTASIS per A.D.A. criteria. Neutrophils (Bld) [#/Vol] 6.4 10*3/uL 2.0-7.7 [facility] Work Phone: Neutrophils/100 WBC (Bld) 73.4 % 47-70 [facility] Work Phone: Potassium [Moles/Vol] 3.5 mmol/L 3.5-5.1 [facility] Work Phone: Sodium [Moles/Vol] 132 mmol/L 136-145 [facility] Work Phone: WBC (Bld) [#/Vol] 8.8 10*3/uL 4.4-11.0 [facility] Work Phone: Blood erythrocytes count (nu mber/volume)on 05-21-2021 RBC (Bld) [#/Vol] 3.66 10*6/uL 4.2-5.4 [facility] Work Phone: Blood hemoglobin measurement (mass/volume)on 05-21-2021 Hemoglobin (Bld) [Mass/Vol] 11.5 g/dL 12.0-15.0 [facility] Work Phone: Blood lymphocytes/100 leukoc yteson 05-21-2021 Lymphocytes/100 WBC (Bld) 14.7 % 19-41 [facility] Work Phone: [phone] Blood monocytes/100 leukocyt eson 05-21-2021 Monocytes/100 WBC (Bld) 8.5 % 0-10 [facility] Work Phone: Blood platelet mean volumeon 05-21-2021 Platelet mean volume (Bld) [Entitic vol] 10.7 fL 6.2-12.0 [facility] Work Phone: Determination of erythrocyte mean corpuscular volume (MCV)on 05-21-2021 MCV (RBC) [Entitic vol] 94.0 fL 81-99 [facility] Work Phone: Hematocrit Auto (Bld) [Volum e fraction]on 05-21-2021 Hematocrit (Bld) [Volume fraction] 34.4 % 37-47 [facility] Work Phone: Laboratory - Chemistry and C hemistry - challengeon 05-21-2021 CO2 [Moles/Vol] 27.0 mmol/L 21.0-32.0 [facility] Work Phone: [phone] Urea nitrogen/Creatinine [Mass ratio] 31.0 mg/mg 10-20 [facility] Work Phone: [phone] Laboratory - Hematology and Cell countson 05-21-2021 Erythrocyte distribution width (RBC) [Entitic vol] 44.3 fL 35.1-43.9 [facility] Work Phone: [phone] Erythrocyte distribution width (RBC) [Ratio] 12.7 % 11.6-14.6 [facility] Work Phone: [phone] Immature granulocytes/100 WBC (Bld) 0.200 % 0.0-0.9 [facility] Work Phone: Comment on above: IG% - Immature Granu locytes (promyelocytes, myelocytes and metamyelocytes) > 1% indicates that a LEFT SHIFT is Present. MCH (RBC) [Entitic mass] 31.4 pg 27.0-32.0 [facility] Work Phone: Nucleated RBC/100 WBC (Bld) [Ratio] 0 % 0-5 [facility] Work Phone: MCHC Auto (RBC) [Mass/Vol]on 05-21-2021 MCHC (RBC) [Mass/Vol] 33.4 g/dL 32-36 [facility] Work Phone: No Panel Informationon 05-21 Estimated Creatinine Clearance Calc 46.20 ml/min [facility] Work Phone: Estimated GFR (MDRD) Amer 174 mL/min >60 [facility] Work Phone: Comment on above: GFR Calc Estimated GFR (MDRD) Non-Af Amer 144 mL/min >60 [facility] Work Phone: Comment on above: Non- GFR Calc Ethyl Alcohol Level < 3.0 mg/dL [facility] Work Phone: Comment on above: The serum:whole bloo d ethanol ratio is approximately 1.14and varies slightly with hematocrit. Medical Alcohol reference interval and critical value innon-tolerant individuals; 50 - 100 Impairment 100 Intoxication 100 - 250 Severe Poisoning 250 - 400 Deep/possible fatal coma Platelets bldon 05-21-2021 Platelets (Bld) [#/Vol] 267 10*3/uL 150-450 [facility] Work Phone: [phone] Serum or plasma calcium rajni urement (mass/volume)on 05-21-2021 Calcium [Mass/Vol] 8.2 mg/dL 8.5-10.1 [facility] Work Phone: [phone] Serum or plasma creatinine m easurement (mass/volume)on 05-21-2021 Creatinine [Mass/Vol] 0.45 mg/dL 0.55-1.02 [facility] Work Phone: Comment on above: The validity of the calculated GFR & GFRAA in patients over 70 years has not been determined. Clinical correlation is essential. Serum or plasma urea nitroge n measurement (mass/volume)on 05-21-2021 Urea nitrogen [Mass/Vol] 14 mg/dL 7-18 [facility] Work Phone: Thin prep Papanicolaou smear with manual screeningon 05-21-2021 Thin prep Papanicolaou smear with manual screening 7 5-15 [facility] Work Phone: XR Humerus - left AP and Lat eralon 03-17-2021 IMPRESSION: Mildly comminuted fracture of the left humeral diaphysis. Overlying soft tissue swelling. Bulk Fluids Handler: FILIBERTO Transcribe Date/Time: Mar 17 2021 2:43P Dictated by : ARISTEO HODGE MD This examination was interpreted and the report reviewed and electronically signed by: ARISTEO HODGE MD on Mar 17 2021 2:45PM [facility] DIVISION OF RADIOLOGY * * *Final Report* [...] the single view. DIVISION OF RADIOLOGY Provider, [facility] * * *Final [...] left humeral diaphysis. Overlying soft tissue swelling. Bulk Fluids Handler: PSCB Transcribe Date/Time: Mar 17 2021 2:43P Dictated by : ARISTEO HODGE MD This examination was interpreted and the report reviewed and electronically signed by: ARISTEO HODGE MD on Mar 17 2021 2:45PM EST [facility] Radiology Study observation (narrative) Lakisha mckenna [facility] XR Humerus - left AP and Lat eralOrdered By: [facility] Provider on 03-17-2021 [facility] Add On Lab Teston 04-17-2020 Sodium [Moles/Vol] Accepted [place], [place] Comment on above: Specimen available & acceptable for analysis. Test Performed by [facility], [address] [place] [address] Sodium [Moles/Vol] Accepted [place], [place] Comment on above: Specimen available & acceptable for analysis. Test Performed by [facility], [facility] [address] Add on test from HISon 04-17 Add on test from HIS Accepted Normal [facility] Comment on above: Result Comment: Spec imen available & acceptable for analysis. Performed By: #### A DDON ####[facility] [place], [place] Add on test from HIS Accepted Normal [facility] Comment on above: Result Comment: Spec imen available & acceptable for analysis. Performed By: #### A DDON #### [facility] [address] [place], [place] Albuminon 04-17-2020 Albumin [Mass/Vol] 3.2 g/dL Low 3.5 - 5 g/dL [place], [place] Interpretation and review of laboratory results Abnormal [place] Test Performed by [facility], [address] [facility] [place] [address] [place] Albumin, Serumon 04-17-2020 Albumin [Mass/Vol] 3.2 g/dL Low 3.5-5.0 [facility] Comment on above: Performed By: #### B MP3M, TSH5, MG3, HEMDF, ALB3, B12, PHOS3 ####[facility] [place], [place] Basic Metabolic Panelon 03-23 Anion gap [Moles/Vol] 6 Normal [facility] Comment on above: Performed By: #### B MP3M, TSH5, MG3, HEMDF, ALB3, B12, PHOS3 ####[place] [id number] [place], [place] Calcium [Mass/Vol] 6.8 mg/dL Low 8.4-10.4 [facility] Comment on above: Performed By: #### B MP3M, TSH5, MG3, HEMDF, ALB3, B12, PHOS3 ####[place] [address] [place], [place] CO2 [Moles/Vol] 29 mmol/L Normal 22-30 [facility] Comment on above: Performed By: #### B MP3M, TSH5, MG3, HEMDF, ALB3, B12, PHOS3 ####[facility] [place], [place] Glucose [Mass/Vol] 103 mg/dL High 70-100 [facility] Comment on above: Performed By: #### B MP3M, TSH5, MG3, HEMDF, ALB3, B12, PHOS3 ####[facility] [place], [place] Urea nitrogen [Mass/Vol] 13 mg/dL Normal 7-20 [facility] Comment on above: Performed By: #### B MP3M, TSH5, MG3, HEMDF, ALB3, B12, PHOS3 ####[address] [place], [place] Creatinine [Mass/Vol] 0.56 mg/dL Normal 0.52-1.25 [facility] Comment on above: Performed By: #### B MP3M, TSH5, MG3, HEMDF, ALB3, B12, PHOS3 ####[address] [place] [address] GFR/1.73 sq M predicted among blacks MDRD (S/P/Bld) [Vol rate/Area] mL/min/{1.73_m2} Normal >60 [facility] Comment on above: Performed By: #### B MP3M, TSH5, MG3, HEMDF, ALB3, B12, PHOS3 ####[address] [place], [place] GFR/1.73 sq M predicted among non-blacks MDRD (S/P/Bld) [Vol rate/Area] mL/min/{1.73_m2} Normal >60 [facility] Comment on above: Result Comment: KDIG O [...] MP3M, TSH5, MG3, HEMDF, ALB3, B12, PHOS3 ####[address] [place], [place] Chloride [Moles/Vol] 100 mmol/L Normal 98-107 [facility] Comment on above: Performed By: #### B MP3M, TSH5, MG3, HEMDF, ALB3, B12, PHOS3 ####[facility] [place], [place] Potassium [Moles/Vol] 3.3 mmol/L Low 3.5-5.1 [facility] Comment on above: Performed By: #### B MP3M, TSH5, MG3, HEMDF, ALB3, B12, PHOS3 ####[facility] [place], [place] Sodium [Moles/Vol] 135 mmol/L Normal 135-145 [facility] Comment on above: Performed By: #### B MP3M, TSH5, MG3, HEMDF, ALB3, B12, PHOS3 ####[address] [place], [place] Basic Metabolic Panel w/ Ref jason to MGon 04-17-2020 Anion gap [Moles/Vol] 6 mmol/L [place], [place] Calcium [Mass/Vol] 6.8 mg/dL Low 8.4 - 10. 4 mg/dL [place] Chloride [Moles/Vol] 100 mmol/L 98 - 10 7 mmol/L [place] CO2 [Moles/Vol] 29 mmol/L 22 - 30 mmol/L [place] Creatinine [Mass/Vol] 0.56 mg/dL 0.52 - 1.25 mg/dL [place] EGFR IF NonAfrican [place] >90.0 >60 mL/min [place] Comment on above: KDIGO guidelines pro [...] MDRD (S/P/Bld) [Vol rate/Area] mL/min/{1.73_m2} >60 mL/min [place] Glucose [Mass/Vol] 103 mg/dL High 70 - 100 mg/dL [place] Interpretation and review of laboratory results Abnormal [place] Potassium [Moles/Vol] 3.3 mmol/L Low 3.5 - 5.1 mmol/L [place] Sodium [Moles/Vol] 135 mmol/L 135 - 145 mmol/L [place] Urea nitrogen [Mass/Vol] 13 mg/dL 7 - 20 mg/dL [place] CBC auto differentialon 12-2 Absolute Baso # 0.1 10*3/uL 0 - 0.2 10*3/uL [place] Absolute Neut # 8.1 10*3/uL High 1.8 - 7 10*3/uL [place] Basophils/100 WBC (Bld) 0.6 % 0 - 2 % [place], [place] Eosinophils (Bld) [#/Vol] 0.1 10*3/uL 0 - 0.5 10*3/uL [place] Eosinophils/100 WBC (Bld) 1.1 % 1 - 6 % [place] Erythrocyte distribution width (RBC) [Ratio] 14.9 % High 11.5 - 14.5 % [place] Granulocytes/100 WBC (Bld) 71.9 % 40 - 80 % [place] Hematocrit (Bld) [Volume fraction] 31.7 % Low 35 - 47 % [place] Hemoglobin (Bld) [Mass/Vol] 10.6 g/dL Low 11.7 - 16 g/dL [place] Interpretation and review of laboratory results Abnormal [place] Lymphocytes (Bld) [#/Vol] 1.9 10*3/uL 1 - 4.3 10*3/uL [place] Lymphocytes/100 WBC (Bld) 16.9 % Low 20 - 40 % [place] MCH (RBC) [Entitic mass] 33.2 pg 26 - 34 pg [place] MCHC (RBC) [Mass/Vol] 33.3 % 32 - 36 % [place] MCV (RBC) [Entitic vol] 99.7 fL High 79 - 98 fL [place], [place] Monocytes (Bld) [#/Vol] 1.1 10*3/uL High 0 - 0.8 10*3/uL [place] Monocytes/100 WBC (Bld) 9.5 % 2 - 10 % [place] Platelet mean volume (Bld) [Entitic vol] 8.7 fL 7.4 - 10.4 fL [place] Platelets (Bld) [#/Vol] 232 10*3/uL 140 - 440 10*3/uL [place] RBC (Bld) [#/Vol] 3.18 10*6/uL Low 3.8 - 5.2 10*6/uL [place] WBC (Bld) [#/Vol] 11.2 10*3/uL High 3.6 - 10.7 10*3/uL [place] Test Performed by [facility], [address] [place] [address] [place], [place] CT Head or Brain w/o Contras ton 04-17-2020 CT Head or Brain w/o Contrast Patient Name: AIDEN FIELDS Computed Tomography ACCESSION EXAM DATE/TIME PROCEDURE ORDERING PROVIDER [id number] 04/17/2020 06:[address] Head or Brain w/o MD LEY ANDREW Contrast CPT code 97704 Reason For Exam (CT Head or Brain [...] Transcribed Date and Time: 04/17/2020 9:04 Normal [facility] CT head without contraston 1 06-18-2019 Greg, [facility] Incoming Radiology Results From [facility] - 04/17/2020 9:11 AM EST Patient Name: AIDEN FIELDS Computed Tomography ACCESSION EXAM DATE/TIME PROCEDURE ORDERING PROVIDER [id number] 04/17/2020 06:[address] Head or Brain w/o MD LEY ANDREW Contrast CPT code 19755 Reason For Exam (CT Head or Brain [...] JOHN Transcribed Date and Time: 04/17/2020 9:04 [place] Patient Name: AIDEN FIELDS Computed Tomography ACCESSION EXAM DATE/TIME PROCEDURE ORDERING PROVIDER [id number] 04/17/2020 06:[address] Head or Brain w/o MD LEY ANDREW Contrast CPT code 05775 Reason For Exam (CT Head or Brain [...] JOHN Transcribed Date and Time: 04/17/2020 9:04 [place] Hemogram w/ [employer] 04-17 Abs Baso Cnt 0.1 10*3/uL Normal 0.0-0.2 [facility] Comment on above: Performed By: #### B MP3M, TSH5, MG3, HEMDF, ALB3, B12, PHOS3 ####[address] [place], [place] Abs Neutrophile Cnt 8.1 10*3/uL High 1.8-7.0 [facility] Comment on above: Performed By: #### B MP3M, TSH5, MG3, HEMDF, ALB3, B12, PHOS3 ####[address] Basophils/100 WBC (Bld) 0.6 % Normal 0.0-2.0 [facility] Comment on above: Performed By: #### B MP3M, TSH5, MG3, HEMDF, ALB3, B12, PHOS3 ####[address] Eosinophils (Bld) [#/Vol] 0.1 10*3/uL Normal 0.0-0.5 [facility] Comment on above: Performed By: #### B MP3M, TSH5, MG3, HEMDF, ALB3, B12, PHOS3 ####[address] [place], [place] Eosinophils/100 WBC (Bld) 1.1 % Normal 1.0-6.0 [facility] Comment on above: Performed By: #### B MP3M, TSH5, MG3, HEMDF, ALB3, B12, PHOS3 ####[address] [place], [place] Erythrocyte distribution width (RBC) [Ratio] 14.9 % High 11.5-14.5 [facility] Comment on above: Performed By: #### B MP3M, TSH5, MG3, HEMDF, ALB3, B12, PHOS3 ####[address] [place], [place] Granulocytes/100 WBC (Bld) 71.9 % Normal 40.0-80.0 [facility] Comment on above: Performed By: #### B MP3M, TSH5, MG3, HEMDF, ALB3, B12, PHOS3 ####[address] Hematocrit (Bld) [Volume fraction] 31.7 % Low 35.0-47.0 [facility] Comment on above: Performed By: #### B MP3M, TSH5, MG3, HEMDF, ALB3, B12, PHOS3 ####[address] [place], [place] Hemoglobin (Bld) [Mass/Vol] 10.6 g/dL Low 11.7-16.0 [facility] Comment on above: Performed By: #### B MP3M, TSH5, MG3, HEMDF, ALB3, B12, PHOS3 ####[address] Lymphocytes (Bld) [#/Vol] 1.9 10*3/uL Normal 1.0-4.3 [facility] Comment on above: Performed By: #### B MP3M, TSH5, MG3, HEMDF, ALB3, B12, PHOS3 ####[address] Lymphocytes/100 WBC (Bld) 16.9 % Low 20.0-40.0 [facility] Comment on above: Performed By: #### B MP3M, TSH5, MG3, HEMDF, ALB3, B12, PHOS3 ####[address] [place], [place] MCH (RBC) [Entitic mass] 33.2 pg Normal 26.0-34.0 [facility] Comment on above: Performed By: #### B MP3M, TSH5, MG3, HEMDF, ALB3, B12, PHOS3 ####[address] [place] MCHC (RBC) [Mass/Vol] 33.3 % Normal 32.0-36.0 [facility] Comment on above: Performed By: #### B MP3M, TSH5, MG3, HEMDF, ALB3, B12, PHOS3 ####[address] [place] MCV (RBC) [Entitic vol] 99.7 fL High 79.0-98.0 [facility] Comment on above: Performed By: #### B MP3M, TSH5, MG3, HEMDF, ALB3, B12, PHOS3 ####[address] [place], [place] Monocytes (Bld) [#/Vol] 1.1 10*3/uL High 0.0-0.8 [facility] Comment on above: Performed By: #### B MP3M, TSH5, MG3, HEMDF, ALB3, B12, PHOS3 ####[address] Monocytes/100 WBC (Bld) 9.5 % Normal 2.0-10.0 [facility] Comment on above: Performed By: #### B MP3M, TSH5, MG3, HEMDF, ALB3, B12, PHOS3 ####[address] Platelet mean volume (Bld) [Entitic vol] 8.7 fL Normal 7.4-10.4 [facility] Comment on above: Performed By: #### B MP3M, TSH5, MG3, HEMDF, ALB3, B12, PHOS3 ####[address] Platelets (Bld) [#/Vol] 232 10*3/uL Normal 140-440 [facility] Comment on above: Performed By: #### B MP3M, TSH5, MG3, HEMDF, ALB3, B12, PHOS3 ####[address] [place], [place] RBC (Bld) [#/Vol] 3.18 10*6/uL Low 3.80-5.20 [facility] Comment on above: Performed By: #### B MP3M, TSH5, MG3, HEMDF, ALB3, B12, PHOS3 ####[address] [place] WBC (Bld) [#/Vol] 11.2 10*3/uL High 3.6-10.7 [facility] Comment on above: Performed By: #### B MP3M, TSH5, MG3, HEMDF, ALB3, B12, PHOS3 ####[address] [place], [place] Lactic Acidon 04-17-2020 Lactate [Moles/Vol] 1.8 mmol/L Normal 0.7-2.0 [facility] Comment on above: Performed By: #### L ACT3 #### [address] [address] [place], [place] Lactic Acid, Plasmaon 2019 Lactate [Moles/Vol] 1.8 mmol/L 0.7 - 2 mmol/L [place] Test Performed by [facility], [address] [place] [id number] [place] [address] Magnesiumon 04-17-2020 Magnesium [Mass/Vol] 1.4 mg/dL Low 1.6-2.3 [facility] Comment on above: Performed By: #### B MP3M, TSH5, MG3, HEMDF, ALB3, B12, PHOS3 ####[address] [place], [place] Interpretation and review of laboratory results Abnormal [place] Magnesium [Mass/Vol] 1.4 mg/dL Low 1.6 - 2 .3 mg/dL [place] Test Performed by [facility], [address] [place] [id number] [place] [address] Otheron 04-17-2020 Test Performed by [id number] [place] [address] Phosphoruson 04-17-2020 Phosphate [Mass/Vol] 3.4 mg/dL Normal 2.5-4.5 [facility] Comment on above: Performed By: #### B MP3M, TSH5, MG3, HEMDF, ALB3, B12, PHOS3 ####[address] [place] [address] Phosphate [Mass/Vol] 3.4 mg/dL 2.5 - 4 .5 mg/dL [place] TSH without Reflexon 020 Interpretation and review of laboratory results Abnormal [place] TSH Qn 18.063 u[IU]/mL High 0.465 - 4.68 u[IU]/mL [place] Test Performed by [facility], [address] [place] [address] [place] Thyroid Stim. Hormoneon 03-23 Thyroid Stim. Hormone 18.063 u[IU]/mL High 0.465-4.6 80 [facility] Comment on above: Performed By: #### B MP3M, TSH5, MG3, HEMDF, ALB3, B12, PHOS3 ####[address] [place] [address] Vitamin B12on 04-17-2020 Cobalamin (Vitamin B12) [Mass/Vol] 345 pg/mL Normal 239-931 [facility] Comment on above: Performed By: #### B MP3M, TSH5, MG3, HEMDF, ALB3, B12, PHOS3 ####[address] [place] [address] Cobalamin (Vitamin B12) [Mass/Vol] 345 pg/mL 239 - 931 pg/mL [place] Test Performed by [facility], [address] [place] [id number] [place] [address] Basic Metabolic Panelon 03-23 Calcium [Mass/Vol] 7.9 mg/dL Low 8.4-10.4 [facility] Comment on above: Performed By: #### E TOH4, BMP3M, LACT3, HEMDF #### [address] [address] Glucose [Mass/Vol] 116 mg/dL High 70-100 [facility] Comment on above: Performed By: #### E TOH4, BMP3M, LACT3, HEMDF #### [address] [place], [place] Anion gap [Moles/Vol] 7 Normal [facility] Comment on above: Performed By: #### E TOH4, BMP3M, LACT3, HEMDF #### [address] [place], [place] CO2 [Moles/Vol] 29 mmol/L Normal 22-30 [facility] Comment on above: Performed By: #### E TOH4, BMP3M, LACT3, HEMDF #### [address] [place], [place] Creatinine [Mass/Vol] 0.48 mg/dL Low 0.52-1.25 [facility] Comment on above: Performed By: #### E TOH4, BMP3M, LACT3, HEMDF #### [address] GFR/1.73 sq M predicted among blacks MDRD (S/P/Bld) [Vol rate/Area] mL/min/{1.73_m2} Normal >60 [facility] Comment on above: Performed By: #### E TOH4, BMP3M, LACT3, HEMDF #### [address] GFR/1.73 sq M predicted among non-blacks MDRD (S/P/Bld) [Vol rate/Area] mL/min/{1.73_m2} Normal >60 [facility] Comment on above: Result Comment: KDIG O [...] #### E TOH4, BMP3M, LACT3, HEMDF #### [facility] [address] [place], [place] Urea nitrogen [Mass/Vol] 13 mg/dL Normal 7-20 [facility] Comment on above: Performed By: #### E TOH4, BMP3M, LACT3, HEMDF #### [address] [place], [place] Chloride [Moles/Vol] 99 mmol/L Normal 98-107 [facility] Comment on above: Performed By: #### E TOH4, BMP3M, LACT3, HEMDF #### [place] [address] [address], [place] Potassium [Moles/Vol] 3.6 mmol/L Normal 3.5-5.1 [facility] Comment on above: Performed By: #### E TOH4, BMP3M, LACT3, HEMDF #### [place] [address] [address], [place] Sodium [Moles/Vol] 136 mmol/L Normal 135-145 [facility] Comment on above: Performed By: #### E TOH4, BMP3M, LACT3, HEMDF #### [place] [address] [address], [place] Basic Metabolic Panel w/ Ref jason to [facility] 04-16-2020 Anion gap [Moles/Vol] 7 mmol/L [place], [place] Calcium [Mass/Vol] 7.9 mg/dL Low 8.4 - 10. 4 mg/dL [place], [place] Chloride [Moles/Vol] 99 mmol/L 98 - 10 7 mmol/L [place], [place] CO2 [Moles/Vol] 29 mmol/L 22 - 30 mmol/L [place], [place] Creatinine [Mass/Vol] 0.48 mg/dL Low 0.52 - 1.25 mg/dL [place], [place] EGFR IF NonAfrican [place] >90.0 >60 mL/min [place], [place] Comment on above: KDIGO guidelines pro [...] MDRD (S/P/Bld) [Vol rate/Area] mL/min/{1.73_m2} >60 mL/min [place] Glucose [Mass/Vol] 116 mg/dL High 70 - 100 mg/dL [place] Interpretation and review of laboratory results Abnormal [place] Potassium [Moles/Vol] 3.6 mmol/L 3.5 - 5.1 mmol/L [place] Sodium [Moles/Vol] 136 mmol/L 135 - 145 mmol/L [place] Urea nitrogen [Mass/Vol] 13 mg/dL 7 - 20 mg/dL [place] CBC auto differentialon 03-23 Absolute Baso # 0.1 10*3/uL 0 - 0.2 10*3/uL [place] Absolute Neut # 10.3 10*3/uL High 1.8 - 7 10*3/uL [place] Basophils/100 WBC (Bld) 0.4 % 0 - 2 % [place] Eosinophils (Bld) [#/Vol] 0.0 10*3/uL 0 - 0.5 10*3/uL [place] Eosinophils/100 WBC (Bld) 0.4 % Low 1 - 6 % [place] Erythrocyte distribution width (RBC) [Ratio] 14.6 % High 11.5 - 14.5 % [place] Granulocytes/100 WBC (Bld) 82.2 % High 40 - 80 % [place] Hematocrit (Bld) [Volume fraction] 36.4 % 35 - 47 % [place] Hemoglobin (Bld) [Mass/Vol] 12.1 g/dL 11.7 - 16 g/dL [place] Interpretation and review of laboratory results Abnormal [place] Lymphocytes (Bld) [#/Vol] 1.1 10*3/uL 1 - 4.3 10*3/uL [place] Lymphocytes/100 WBC (Bld) 9.1 % Low 20 - 40 % [place] MCH (RBC) [Entitic mass] 33.0 pg 26 - 34 pg [place] MCHC (RBC) [Mass/Vol] 33.2 % 32 - 36 % [place] MCV (RBC) [Entitic vol] 99.2 fL High 79 - 98 fL [place] Monocytes (Bld) [#/Vol] 1.0 10*3/uL High 0 - 0.8 10*3/uL [place] Monocytes/100 WBC (Bld) 7.9 % 2 - 10 % [place] Platelet mean volume (Bld) [Entitic vol] 8.1 fL 7.4 - 10.4 fL [place] Platelets (Bld) [#/Vol] 283 10*3/uL 140 - 440 10*3/uL [place] RBC (Bld) [#/Vol] 3.67 10*6/uL Low 3.8 - 5.2 10*6/uL [place] WBC (Bld) [#/Vol] 12.5 10*3/uL High 3.6 - 10.7 10*3/uL [place] Test Performed by [facility], [address] [place] [address], [place] [address] [place] Drug screen multi urineon Amphetamines, urine Negative [place] Barbiturates, Ur Negative [facility], [place] Benzodiazepine Ur Qual Negative Me [facility], [place] Cocaine Metabolites, Ur Negative M [facility], [place] Methadone, Urine Negative [facility], [place] Opiates, Urine Positive [facility], [place] Oxycodone Screen, Ur Negative [facility], [place] PCP, Urine Negative [facility], [place] Comment on above: The expected value f [...] confirmation under separate order. Test Performed by [facility], [address] [place] [id number] [place], [place] Drugs of Abuseon 04-16-2020 Opiates, Ur Positive Normal [facility] Comment on above: Performed By: #### D [id number] #### [address] [id number] Phencyclidine (PCP), Ur Negative Normal [facility] Comment on above: Result Comment: The [...] order. Performed By: #### D RGA4 #### [facility] [address] [place], [place] Methadone, Ur Negative Normal [facility] Comment on above: Performed By: #### D RGA4 #### [facility] [address] [place], [place] Benzodiazepines, Ur Negative Normal [facility] Comment on above: Performed By: #### D RGA4 #### [facility] [address] [place], [place] Cocaine, Ur Negative Normal [facility] Comment on above: Performed By: #### D RGA4 #### [facility] [address] [place], [place] Barbiturates, Ur Negative Normal [facility] Comment on above: Performed By: #### D RGA4 #### [facility] [address] [place], [place] Amphetamines, Ur Negative Normal [facility] Comment on above: Performed By: #### D RGA4 #### [facility] [address] [place], [place] Oxycodone/Oxymorphine,U r Negative Normal [facility] Comment on above: Performed By: #### D RGA4 #### [facility] [address] [place], [place] Ethanolon 04-16-2020 Ethanol Lvl <0.010 0 - 0.01 g/dL [facility], [place] Comment on above: NOTE: This result is for medical treatment only. Analysis performed using non-forensic procedures. Ethanol Serum/Plasmaon 04-16 Ethanol-Serum/Plasma < 0.010 Normal 0.000-0.010 [facility] Comment on above: Result Comment: NOTE : This result is for medical treatment only. Analysis performed using non-forensic procedures. Performed By: #### E TOH4, BMP3M, LACT3, HEMDF #### [facility] [address] [place], [place] Hemogram w/ Autodiffon 04-16 Abs Baso Cnt 0.1 10*3/uL Normal 0.0-0.2 [facility] Comment on above: Performed By: #### E TOH4, BMP3M, LACT3, HEMDF #### [place] [address] [address] [place], [place] Abs Neutrophile Cnt 10.3 10*3/uL High 1.8-7.0 [facility] Comment on above: Performed By: #### E TOH4, BMP3M, LACT3, HEMDF #### [place] [address] [address] [place], [place] Basophils/100 WBC (Bld) 0.4 % Normal 0.0-2.0 S [facility] Comment on above: Performed By: #### E TOH4, BMP3M, LACT3, HEMDF #### [address] Eosinophils (Bld) [#/Vol] 0.0 10*3/uL Normal 0.0-0.5 [facility] Comment on above: Performed By: #### E TOH4, BMP3M, LACT3, HEMDF #### [address] Eosinophils/100 WBC (Bld) 0.4 % Low 1.0-6.0 [facility] Comment on above: Performed By: #### E TOH4, BMP3M, LACT3, HEMDF #### [address] Erythrocyte distribution width (RBC) [Ratio] 14.6 % High 11.5-14.5 [facility] Comment on above: Performed By: #### E TOH4, BMP3M, LACT3, HEMDF #### [address] Granulocytes/100 WBC (Bld) 82.2 % High 40.0-80.0 [facility] Comment on above: Performed By: #### E TOH4, BMP3M, LACT3, HEMDF #### [address] Hematocrit (Bld) [Volume fraction] 36.4 % Normal 35.0-47.0 [facility] Comment on above: Performed By: #### E TOH4, BMP3M, LACT3, HEMDF #### [place] [address] [address] [place], [place] Hemoglobin (Bld) [Mass/Vol] 12.1 g/dL Normal 11.7-16.0 [facility] Comment on above: Performed By: #### E TOH4, BMP3M, LACT3, HEMDF #### [address] Lymphocytes (Bld) [#/Vol] 1.1 10*3/uL Normal 1.0-4.3 [facility] Comment on above: Performed By: #### E TOH4, BMP3M, LACT3, HEMDF #### [address] Lymphocytes/100 WBC (Bld) 9.1 % Low 20.0-40.0 [facility] Comment on above: Performed By: #### E TOH4, BMP3M, LACT3, HEMDF #### [address] [place], [place] MCH (RBC) [Entitic mass] 33.0 pg Normal 26.0-34.0 [facility] Comment on above: Performed By: #### E TOH4, BMP3M, LACT3, HEMDF #### [address] MCHC (RBC) [Mass/Vol] 33.2 % Normal 32.0-36.0 [facility] Comment on above: Performed By: #### E TOH4, BMP3M, LACT3, HEMDF #### [address] MCV (RBC) [Entitic vol] 99.2 fL High 79.0-98.0 [facility] Comment on above: Performed By: #### E TOH4, BMP3M, LACT3, HEMDF #### [address] Monocytes (Bld) [#/Vol] 1.0 10*3/uL High 0.0-0.8 [facility] Comment on above: Performed By: #### E TOH4, BMP3M, LACT3, HEMDF #### [place] [address] [address] [place], [place] Monocytes/100 WBC (Bld) 7.9 % Normal 2.0-10.0 [facility] Comment on above: Performed By: #### E TOH4, BMP3M, LACT3, HEMDF #### [place] [address] [address] [place], [place] Platelet mean volume (Bld) [Entitic vol] 8.1 fL Normal 7.4-10.4 [facility] Comment on above: Performed By: #### E TOH4, BMP3M, LACT3, HEMDF #### [address] [place], [place] Platelets (Bld) [#/Vol] 283 10*3/uL Normal 140-440 [facility] Comment on above: Performed By: #### E TOH4, BMP3M, LACT3, HEMDF #### [place] [address] [address] [place], [place] RBC (Bld) [#/Vol] 3.67 10*6/uL Low 3.80-5.20 [facility] Comment on above: Performed By: #### E TOH4, BMP3M, LACT3, HEMDF #### [place] [address] [address] [place], [place] WBC (Bld) [#/Vol] 12.5 10*3/uL High 3.6-10.7 [facility] Comment on above: Performed By: #### E TOH4, BMP3M, LACT3, HEMDF #### [place] [address] [address] [place] Lactic Acidon 04-16-2020 Lactate [Moles/Vol] 2.7 mmol/L Critically high 0.7-2.0 [facility] Comment on above: Performed By: #### L ACT3 #### [place] [address] [address] [place], [place] Lactate [Moles/Vol] 3.0 mmol/L Critically high 0.7-2.0 [facility] Comment on above: Performed By: #### E TOH4, BMP3M, LACT3, HEMDF #### [address] [id number] Lactic Acid, Plasmaon 2019 Interpretation and review of laboratory results Abnormal [facility], [place] Lactate [Moles/Vol] 2.7 mmol/L Critically high 0.7 - 2 mmol/L [facility], [place] Test Performed by [facility], [address] [place] [address] [facility], [place] Interpretation and review of laboratory results Abnormal [facility], [place] Lactate [Moles/Vol] 3 mmol/L Critically high 0.7 - 2 mmol/L [facility], [place] Test Performed by [facility] [place] [address] [facility], [place] Otheron 04-16-2020 Test Performed by [facility], [address] [place] [address] [facility], [place] .GFRon 09-01-2019 GFR Non- >60 Normal [facility] ([place]) Comment on above: Result Comment: GFR Population [...] #### C BC, BMP, GFR, DIFF, MORPH ####[address] [address] GFR >60 Normal Counts include 234 beds at the [facility] ([place]) Comment on above: Result Comment: GFR Population [...] #### C BC, BMP, GFR, DIFF, MORPH ####[place] [address] .Manual Diffon 09-01-2019 Bands 1.0 % Normal 0.0-5.0 [facility] ([place]) Comment on above: Performed By: #### C BC, BMP, GFR, DIFF, MORPH ####[place] [address] Basophil %, Manual 1.0 % Normal 0.0-2.5 [facility] ([place]) Comment on above: Performed By: #### C BC, BMP, GFR, DIFF, MORPH ####[place] [address] Basophil, Abs Manual 0.15 10 3/mcL Normal 0.00-0.27 A [facility] ([place]) Comment on above: Performed By: #### C BC, BMP, GFR, DIFF, MORPH ####[place] [address] Cells Counted 100 Normal [facility] ([place]) Comment on above: Performed By: #### C BC, BMP, GFR, DIFF, MORPH ####[place] [address] Eosinophil %, Manual 2.0 % Normal 0.0-6.0 Counts include 234 beds at the [facility] ([place]) Comment on above: Performed By: #### C BC, BMP, GFR, DIFF, MORPH ####[place] [address] Eosinophil, Abs Manual 0.30 10 3/mcL Normal 0.00-0.65 [facility] ([place]) Comment on above: Performed By: #### C BC, BMP, GFR, DIFF, MORPH ####[place] [address] Lymphocyte %, Manual 7.0 % Low 20.0-40.0 Counts include 234 beds at the [facility] ([place]) Comment on above: Performed By: #### C BC, BMP, GFR, DIFF, MORPH ####[address] [address] Lymphocyte, Abs Manual 1.04 10 3/mcL Normal 0.90-4.32 [facility] ([place]) Comment on above: Performed By: #### C BC, BMP, GFR, DIFF, MORPH ####[place] [address] Monocyte %, Manual 2.0 % Normal 2.0-13.0 [facility] ([place]) Comment on above: Performed By: #### C BC, BMP, GFR, DIFF, MORPH ####[place] [address] Monocyte, Abs Manual 0.30 10 3/mcL Normal 0.09-1.40 A [facility] ([place]) Comment on above: Performed By: #### C BC, BMP, GFR, DIFF, MORPH ####[address] [address] Neutrophil %, Manual 87.0 % High 50.0-75.0 Counts include 234 beds at the [facility] ([place]) Comment on above: Performed By: #### C BC, BMP, GFR, DIFF, MORPH ####[place] [address] Neutrophil, Abs Manual 13.11 10 3/mcL High 2.25-8.10 [facility] ([place]) Comment on above: Performed By: #### C BC, BMP, GFR, DIFF, MORPH ####[place] [address] .Morphon 09-01-2019 Platelets (Bld) [#/Vol] Slt Increased Normal [facility] ([place]) Comment on above: Performed By: #### C BC, BMP, GFR, DIFF, MORPH ####[address] [address] RBC morphology finding Nom (Bld) Normal Normal [facility] ([place]) Comment on above: Performed By: #### C BC, BMP, GFR, DIFF, MORPH ####[address] [address] BMPon 09-01-2019 Calcium [Mass/Vol] 8.6 mg/dL Normal 8.4-10.1 [facility] ([place]) Comment on above: Performed By: #### C BC, BMP, GFR, DIFF, MORPH ####[place] [address] CO2 [Moles/Vol] 24 mmol/L Normal 22-32 [facility] ([place]) Comment on above: Performed By: #### C BC, BMP, GFR, DIFF, MORPH ####[place] [address] Creatinine [Mass/Vol] 0.46 mg/dL Low 0.50-1.20 [facility] ([place]) Comment on above: Performed By: #### C BC, BMP, GFR, DIFF, MORPH ####[place] [address] Electrolyte Balance 10.0 mEq/L Normal 4.0-15.0 [facility] ([place]) Comment on above: Performed By: #### C BC, BMP, GFR, DIFF, MORPH ####[place] [address] Glucose [Mass/Vol] 106 mg/dL Normal 82-115 [facility] ([place]) Comment on above: Performed By: #### C BC, BMP, GFR, DIFF, MORPH ####[place] [address] Potassium [Moles/Vol] 3.9 mmol/L Normal 3.5-5.0 [facility] ([place]) Comment on above: Performed By: #### C BC, BMP, GFR, DIFF, MORPH ####[place] [address] Urea nitrogen [Mass/Vol] 9.0 mg/dL Normal 8.0-22.0 [facility] ([place]) Comment on above: Performed By: #### C BC, BMP, GFR, DIFF, MORPH ####[place] [address] Urea nitrogen/Creatinine [Mass ratio] 19.6 ratio Normal 10.0-22.0 [facility] ([place]) Comment on above: Performed By: #### C BC, BMP, GFR, DIFF, MORPH ####[place] [address] Chloride [Moles/Vol] 101 mmol/L Normal 98-110 Counts include 234 beds at the [facility] ([place]) Comment on above: Performed By: #### C BC, BMP, GFR, DIFF, MORPH ####[place] [address] Sodium [Moles/Vol] 135 mmol/L Low 136-145 [facility] ([place]) Comment on above: Performed By: #### C BC, BMP, GFR, DIFF, MORPH ####[place] [address] CBCon 09-01-2019 Erythrocyte distribution width (RBC) [Ratio] 14.7 % Normal 11.5-15.5 [facility] ([place]) Comment on above: Performed By: #### C BC, BMP, GFR, DIFF, MORPH ####[address] [address] Hematocrit (Bld) [Volume fraction] 29.6 % Low 34.0-46.0 [facility] ([place]) Comment on above: Performed By: #### C BC, BMP, GFR, DIFF, MORPH ####[address] [address] Hemoglobin (Bld) [Mass/Vol] 9.9 G/dL Low 12.0-16.0 [facility] ([place]) Comment on above: Performed By: #### C BC, BMP, GFR, DIFF, MORPH ####[address] [address] MCH (RBC) [Entitic mass] 32.8 pg Normal 27.0-33.0 [facility] ([place]) Comment on above: Performed By: #### C BC, BMP, GFR, DIFF, MORPH ####[address] [address] MCHC (RBC) [Mass/Vol] 33.5 G/dL Normal 32.0-36.0 [facility] ([place]) Comment on above: Performed By: #### C BC, BMP, GFR, DIFF, MORPH ####[place] [address] MCV (RBC) [Entitic vol] 97.9 fL Normal 80.0-99.0 [facility] ([place]) Comment on above: Performed By: #### C BC, BMP, GFR, DIFF, MORPH ####[place] [address] Platelet mean volume (Bld) [Entitic vol] 7.0 fL Normal 6.6-10.5 [facility] ([place]) Comment on above: Performed By: #### C BC, BMP, GFR, DIFF, MORPH ####[place] [address] Platelets (Bld) [#/Vol] 481 10 3/mcL High 150-450 [facility] ([place]) Comment on above: Performed By: #### C BC, BMP, GFR, DIFF, MORPH ####[place] [address] RBC (Bld) [#/Vol] 3.03 10 6/mcL Low 4.10-5.30 Counts include 234 beds at the [facility] ([place]) Comment on above: Performed By: #### C BC, BMP, GFR, DIFF, MORPH ####[place] [address] WBC (Bld) [#/Vol] 14.90 10 3/mcL High 4.50-10.80 [facility] ([place]) Comment on above: Performed By: #### C BC, BMP, GFR, DIFF, MORPH ####[address] [address] .Auto Diffon 08-31-2019 Ammonia (P) [Mass/Vol] 1.40 10 3/mcL Normal 0.09-1.40 [facility] ([place]) Comment on above: Performed By: #### C BC, ADIFF, ANEU, BMP, GFR ####[address] [address] Basophils (Bld) [#/Vol] 0.10 10 3/mcL Normal 0.00-0.27 [facility] ([place]) Comment on above: Performed By: #### C BC, ADIFF, ANEU, BMP, GFR ####[address] [address] Basophils/100 WBC (Bld) 0.5 % Normal 0.0-2.5 A [facility] ([place]) Comment on above: Performed By: #### C BC, ADIFF, ANEU, BMP, GFR ####[address] [address] Eosinophils (Bld) [#/Vol] 0.50 10 3/mcL Normal 0.00-0.65 [facility] ([place]) Comment on above: Performed By: #### C BC, ADIFF, ANEU, BMP, GFR ####[address] [address] Eosinophils/100 WBC (Bld) 3.3 % Normal 0.0-6.0 [facility] ([place]) Comment on above: Performed By: #### C BC, ADIFF, ANEU, BMP, GFR ####[address] [address] Lymphocytes (Bld) [#/Vol] 1.30 10 3/mcL Normal 0.90-4.32 [facility] ([place]) Comment on above: Performed By: #### C BC, ADIFF, ANEU, BMP, GFR ####[address] [address] Lymphocytes/100 WBC (Bld) 8.1 % Low 20.0-40.0 [facility] ([place]) Comment on above: Performed By: #### C BC, ADIFF, ANEU, BMP, GFR ####[address] [address] Monocytes/100 WBC (Bld) 9.0 % Normal 2.0-13.0 A [facility] ([place]) Comment on above: Performed By: #### C BC, ADIFF, ANEU, BMP, GFR ####[address] [address] Neutrophils/100 WBC (Bld) 79.1 % High 50.0-75.0 [facility] ([place]) Comment on above: Performed By: #### C BC, ADIFF, ANEU, BMP, GFR ####[address] [address] .GFRon 08-31-2019 GFR Non- >60 Normal [facility] ([place]) Comment on above: Result Comment: GFR Population [...] #### C BC, ADIFF, ANEU, BMP, GFR ####[address] [address] GFR >60 Normal Counts include 234 beds at the [facility] ([place]) Comment on above: Result Comment: GFR Population [...] #### C BC, ADIFF, ANEU, BMP, GFR ####[address] [address] .NEUABSon 08-31-2019 Neutrophils (Bld) [#/Vol] 12.50 10 3/mcL High 2.25-8.10 [facility] ([place]) Comment on above: Performed By: #### C BC, ADIFF, ANEU, BMP, GFR ####[place] [address] BMPon 08-31-2019 Creatinine [Mass/Vol] 0.51 mg/dL Normal 0.50-1.20 [facility] ([place]) Comment on above: Performed By: #### C BC, ADIFF, ANEU, BMP, GFR ####[place] [address] Urea nitrogen/Creatinine [Mass ratio] 19.6 ratio Normal 10.0-22.0 [facility] ([place]) Comment on above: Performed By: #### C BC, ADIFF, ANEU, BMP, GFR ####[place] [address] Calcium [Mass/Vol] 8.6 mg/dL Normal 8.4-10.1 [facility] ([place]) Comment on above: Performed By: #### C BC, ADIFF, ANEU, BMP, GFR ####[place] [address] Chloride [Moles/Vol] 101 mmol/L Normal 98-110 Counts include 234 beds at the [facility] ([place]) Comment on above: Performed By: #### C BC, ADIFF, ANEU, BMP, GFR ####[place] [address] CO2 [Moles/Vol] 25 mmol/L Normal 22-32 [facility] ([place]) Comment on above: Performed By: #### C BC, ADIFF, ANEU, BMP, GFR ####[place] [address] Electrolyte Balance 9.0 mEq/L Normal 4.0-15.0 [facility] ([place]) Comment on above: Performed By: #### C BC, ADIFF, ANEU, BMP, GFR ####[address] [address] Glucose [Mass/Vol] 112 mg/dL Normal 82-115 [facility] ([place]) Comment on above: Performed By: #### C BC, ADIFF, ANEU, BMP, GFR ####[place] [address] Potassium [Moles/Vol] 4.0 mmol/L Normal 3.5-5.0 [facility] ([place]) Comment on above: Performed By: #### C BC, ADIFF, ANEU, BMP, GFR ####[place] [address] Sodium [Moles/Vol] 135 mmol/L Low 136-145 [facility] ([place]) Comment on above: Performed By: #### C BC, ADIFF, ANEU, BMP, GFR ####[place] [address] Urea nitrogen [Mass/Vol] 10.0 mg/dL Normal 8.0-22.0 [facility] ([place]) Comment on above: Performed By: #### C BC, ADIFF, ANEU, BMP, GFR ####[place] [address] CBCon 08-31-2019 Erythrocyte distribution width (RBC) [Ratio] 14.7 % Normal 11.5-15.5 [facility] ([place]) Comment on above: Performed By: #### C BC, ADIFF, ANEU, BMP, GFR ####[place] [address] Hematocrit (Bld) [Volume fraction] 29.1 % Low 34.0-46.0 [facility] ([place]) Comment on above: Performed By: #### C BC, ADIFF, ANEU, BMP, GFR ####[place] [address] Hemoglobin (Bld) [Mass/Vol] 9.5 G/dL Low 12.0-16.0 [facility] ([place]) Comment on above: Performed By: #### C BC, ADIFF, ANEU, BMP, GFR ####[address] [address] MCH (RBC) [Entitic mass] 32.5 pg Normal 27.0-33.0 [facility] ([place]) Comment on above: Performed By: #### C BC, ADIFF, ANEU, BMP, GFR ####[address] [address] MCHC (RBC) [Mass/Vol] 32.7 G/dL Normal 32.0-36.0 [facility] ([place]) Comment on above: Performed By: #### C BC, ADIFF, ANEU, BMP, GFR ####[place] [address] MCV (RBC) [Entitic vol] 99.3 fL High 80.0-99.0 A [facility] ([place]) Comment on above: Performed By: #### C BC, ADIFF, ANEU, BMP, GFR ####[place] [address] Platelet mean volume (Bld) [Entitic vol] 7.3 fL Normal 6.6-10.5 [facility] ([place]) Comment on above: Performed By: #### C BC, ADIFF, ANEU, BMP, GFR ####[place] [address] Platelets (Bld) [#/Vol] 485 10 3/mcL High 150-450 [facility] ([place]) Comment on above: Performed By: #### C BC, ADIFF, ANEU, BMP, GFR ####[place] [id number] RBC (Bld) [#/Vol] 2.93 10 6/mcL Low 4.10-5.30 Counts include 234 beds at the [facility] ([place]) Comment on above: Performed By: #### C BC, ADIFF, ANEU, BMP, GFR ####[place] [id number] WBC (Bld) [#/Vol] 15.80 10 3/mcL High 4.50-10.80 [facility] ([place]) Comment on above: Performed By: #### C BC, ADIFF, ANEU, BMP, GFR ####[address] [address] .GFRon 08-30-2019 GFR >60 Normal Counts include 234 beds at the [facility] ([place]) Comment on above: Result Comment: GFR Population [...] #### C BC, BMP, GFR, DIFF, MORPH ####[place] [address] GFR Non- >60 Normal [facility] ([place]) Comment on above: Result Comment: GFR Population [...] #### C BC, BMP, GFR, DIFF, MORPH ####[address] [address] .Manual Diffon 08-30-2019 Bands 1.0 % Normal 0.0-5.0 [facility] ([place]) Comment on above: Performed By: #### C BC, BMP, GFR, DIFF, MORPH ####[address] [address] Basophil %, Manual 0.0 % Normal 0.0-2.5 [facility] ([place]) Comment on above: Performed By: #### C BC, BMP, GFR, DIFF, MORPH ####[address] [address] Basophil, Abs Manual 0.00 10 3/mcL Normal 0.00-0.27 A [facility] ([place]) Comment on above: Performed By: #### C BC, BMP, GFR, DIFF, MORPH ####[place] [address] Cells Counted 100 Normal [facility] ([place]) Comment on above: Performed By: #### C BC, BMP, GFR, DIFF, MORPH ####[place] [address] Eosinophil %, Manual 4.0 % Normal 0.0-6.0 Counts include 234 beds at the [facility] ([place]) Comment on above: Performed By: #### C BC, BMP, GFR, DIFF, MORPH ####[place] [address] Eosinophil, Abs Manual 0.64 10 3/mcL Normal 0.00-0.65 [facility] ([place]) Comment on above: Performed By: #### C BC, BMP, GFR, DIFF, MORPH ####[place] [address] Lymphocyte %, Manual 15.0 % Low 20.0-40.0 Counts include 234 beds at the [facility] ([place]) Comment on above: Performed By: #### C BC, BMP, GFR, DIFF, MORPH ####[place] [address] Lymphocyte, Abs Manual 2.38 10 3/mcL Normal 0.90-4.32 [facility] ([place]) Comment on above: Performed By: #### C BC, BMP, GFR, DIFF, MORPH ####[place] [address] Metamyelocytes/100 WBC (Bld) 1.0 % Normal [facility] ([place]) Comment on above: Performed By: #### C BC, BMP, GFR, DIFF, MORPH ####[place] [address] Monocyte %, Manual 9.0 % Normal 2.0-13.0 [facility] ([place]) Comment on above: Performed By: #### C BC, BMP, GFR, DIFF, MORPH ####[place] [id number] Monocyte, Abs Manual 1.43 10 3/mcL High 0.09-1.40 A [facility] ([place]) Comment on above: Performed By: #### C BC, BMP, GFR, DIFF, MORPH ####[place] [address] Neutrophil %, Manual 70.0 % Normal 50.0-75.0 Counts include 234 beds at the [facility] [facility] ([place]) Comment on above: Performed By: #### C BC, BMP, GFR, DIFF, MORPH ####[place] [address] Neutrophil, Abs Manual 11.29 10 3/mcL High 2.25-8.10 [facility] ([place]) Comment on above: Performed By: #### C BC, BMP, GFR, DIFF, MORPH ####[place] [address] .Morphon 08-30-2019 Platelets (Bld) [#/Vol] Slt Increased Normal [facility] ([place]) Comment on above: Performed By: #### C BC, BMP, GFR, DIFF, MORPH ####[place] [address] Polychrom Slight Normal [facility] ([place]) Comment on above: Performed By: #### C BC, BMP, GFR, DIFF, MORPH ####[place] [address] BMPon 08-30-2019 Creatinine [Mass/Vol] 0.47 mg/dL Low 0.50-1.20 [facility] ([place]) Comment on above: Performed By: #### C BC, BMP, GFR, DIFF, MORPH ####[place] [address] Urea nitrogen/Creatinine [Mass ratio] 19.1 ratio Normal 10.0-22.0 [facility] ([place]) Comment on above: Performed By: #### C BC, BMP, GFR, DIFF, MORPH ####[address] [address] Calcium [Mass/Vol] 8.4 mg/dL Normal 8.4-10.1 [facility] ([place]) Comment on above: Performed By: #### C BC, BMP, GFR, DIFF, MORPH ####[address] [address] Chloride [Moles/Vol] 100 mmol/L Normal 98-110 Counts include 234 beds at the [facility] ([place]) Comment on above: Performed By: #### C BC, BMP, GFR, DIFF, MORPH ####[address] [address] CO2 [Moles/Vol] 26 mmol/L Normal 22-32 [facility] ([place]) Comment on above: Performed By: #### C BC, BMP, GFR, DIFF, MORPH ####[place] [address] Electrolyte Balance 8.0 mEq/L Normal 4.0-15.0 [facility] ([place]) Comment on above: Performed By: #### C BC, BMP, GFR, DIFF, MORPH ####[place] [address] Glucose [Mass/Vol] 103 mg/dL Normal 82-115 [facility] ([place]) Comment on above: Performed By: #### C BC, BMP, GFR, DIFF, MORPH ####[address] [address] Potassium [Moles/Vol] 3.3 mmol/L Low 3.5-5.0 [facility] ([place]) Comment on above: Performed By: #### C BC, BMP, GFR, DIFF, MORPH ####[place] [address] Sodium [Moles/Vol] 134 mmol/L Low 136-145 [facility] ([place]) Comment on above: Performed By: #### C BC, BMP, GFR, DIFF, MORPH ####[address] [address] Urea nitrogen [Mass/Vol] 9.0 mg/dL Normal 8.0-22.0 [facility] ([place]) Comment on above: Performed By: #### C BC, BMP, GFR, DIFF, MORPH ####[address] [address] CBCon 08-30-2019 Erythrocyte distribution width (RBC) [Ratio] 14.7 % Normal 11.5-15.5 [facility] ([place]) Comment on above: Performed By: #### C BC, BMP, GFR, DIFF, MORPH ####[place] [address] Hematocrit (Bld) [Volume fraction] 29.8 % Low 34.0-46.0 [facility] ([place]) Comment on above: Performed By: #### C BC, BMP, GFR, DIFF, MORPH ####[place] [address] Hemoglobin (Bld) [Mass/Vol] 9.8 G/dL Low 12.0-16.0 [facility] ([place]) Comment on above: Performed By: #### C BC, BMP, GFR, DIFF, MORPH ####[address] [address] MCH (RBC) [Entitic mass] 32.7 pg Normal 27.0-33.0 [facility] ([place]) Comment on above: Performed By: #### C BC, BMP, GFR, DIFF, MORPH ####[place] [address] MCHC (RBC) [Mass/Vol] 33.1 G/dL Normal 32.0-36.0 [facility] ([place]) Comment on above: Performed By: #### C BC, BMP, GFR, DIFF, MORPH ####[place] [address] MCV (RBC) [Entitic vol] 98.7 fL Normal 80.0-99.0 [facility] ([place]) Comment on above: Performed By: #### C BC, BMP, GFR, DIFF, MORPH ####[place] [address] Platelet mean volume (Bld) [Entitic vol] 7.1 fL Normal 6.6-10.5 [facility] ([place]) Comment on above: Performed By: #### C BC, BMP, GFR, DIFF, MORPH ####[address] [address] Platelets (Bld) [#/Vol] 504 10 3/mcL High 150-450 [facility] ([place]) Comment on above: Performed By: #### C BC, BMP, GFR, DIFF, MORPH ####[address] [address] RBC (Bld) [#/Vol] 3.02 10 6/mcL Low 4.10-5.30 Counts include 234 beds at the [facility] ([place]) Comment on above: Performed By: #### C BC, BMP, GFR, DIFF, MORPH ####[address] [address] WBC (Bld) [#/Vol] 15.90 10 3/mcL High 4.50-10.80 [facility] ([place]) Comment on above: Performed By: #### C BC, BMP, GFR, DIFF, MORPH ####[address] [address] .GFRon 08-29-2019 GFR Non- >60 Normal [facility] ([place]) Comment on above: Result Comment: GFR Population [...] #### C BC, BMP, GFR, DIFF, MORPH ####[address] [address] GFR >60 Normal Counts include 234 beds at the [facility] ([place]) Comment on above: Result Comment: GFR Population [...] #### C BC, BMP, GFR, DIFF, MORPH ####[place] [address] .Manual Diffon 08-29-2019 Basophil %, Manual 1.0 % Normal 0.0-2.5 [facility] ([place]) Comment on above: Performed By: #### C BC, BMP, GFR, DIFF, MORPH ####[place] [address] Basophil, Abs Manual 0.18 10 3/mcL Normal 0.00-0.27 A [facility] ([place]) Comment on above: Performed By: #### C BC, BMP, GFR, DIFF, MORPH ####[place] [address] Cells Counted 100 Normal [facility] ([place]) Comment on above: Performed By: #### C BC, BMP, GFR, DIFF, MORPH ####[address] [address] Eosinophil %, Manual 0.0 % Normal 0.0-6.0 Counts include 234 beds at the [facility] ([place]) Comment on above: Performed By: #### C BC, BMP, GFR, DIFF, MORPH ####[place] [address] Eosinophil, Abs Manual 0.00 10 3/mcL Normal 0.00-0.65 [facility] ([place]) Comment on above: Performed By: #### C BC, BMP, GFR, DIFF, MORPH ####[address] [address] Lymphocyte %, Manual 7.0 % Low 20.0-40.0 Counts include 234 beds at the [facility] ([place]) Comment on above: Performed By: #### C BC, BMP, GFR, DIFF, MORPH ####[address] [address] Lymphocyte, Abs Manual 1.29 10 3/mcL Normal 0.90-4.32 [facility] ([place]) Comment on above: Performed By: #### C BC, BMP, GFR, DIFF, MORPH ####[address] [address] Monocyte %, Manual 5.0 % Normal 2.0-13.0 [facility] ([place]) Comment on above: Performed By: #### C BC, BMP, GFR, DIFF, MORPH ####[place] [address] Monocyte, Abs Manual 0.92 10 3/mcL Normal 0.09-1.40 A [facility] ([place]) Comment on above: Performed By: #### C BC, BMP, GFR, DIFF, MORPH ####[place] [address] Myelocyte 2.0 % Normal [facility] ([place]) Comment on above: Performed By: #### C BC, BMP, GFR, DIFF, MORPH ####[place] [address] Neutrophil %, Manual 85.0 % High 50.0-75.0 Counts include 234 beds at the [facility] ([place]) Comment on above: Performed By: #### C BC, BMP, GFR, DIFF, MORPH ####[address] [address] Neutrophil, Abs Manual 15.64 10 3/mcL High 2.25-8.10 [facility] ([place]) Comment on above: Performed By: #### C BC, BMP, GFR, DIFF, MORPH ####[place] [address] .Morphon 08-29-2019 Platelets (Bld) [#/Vol] Normal Normal A [facility] ([place]) Comment on above: Performed By: #### C BC, BMP, GFR, DIFF, MORPH ####[address] [address] Polychrom Slight Normal [facility] ([place]) Comment on above: Performed By: #### C BC, BMP, GFR, DIFF, MORPH ####[address] [address] BMPon 08-29-2019 Calcium [Mass/Vol] 7.8 mg/dL Low 8.4-10.1 [facility] ([place]) Comment on above: Performed By: #### C BC, BMP, GFR, DIFF, MORPH ####[place] [address] Chloride [Moles/Vol] 96 mmol/L Low 98-110 Counts include 234 beds at the [facility] ([place]) Comment on above: Performed By: #### C BC, BMP, GFR, DIFF, MORPH ####[place] [address] CO2 [Moles/Vol] 26 mmol/L Normal 22-32 [facility] ([place]) Comment on above: Performed By: #### C BC, BMP, GFR, DIFF, MORPH ####[place] [address] Creatinine [Mass/Vol] 0.44 mg/dL Low 0.50-1.20 [facility] ([place]) Comment on above: Performed By: #### C BC, BMP, GFR, DIFF, MORPH ####[place] [address] Electrolyte Balance 9.0 mEq/L Normal 4.0-15.0 [facility] ([place]) Comment on above: Performed By: #### C BC, BMP, GFR, DIFF, MORPH ####[place] [address] Glucose [Mass/Vol] 146 mg/dL High 82-115 [facility] ([place]) Comment on above: Performed By: #### C BC, BMP, GFR, DIFF, MORPH ####[place] [address] Potassium [Moles/Vol] 3.4 mmol/L Low 3.5-5.0 [facility] ([place]) Comment on above: Performed By: #### C BC, BMP, GFR, DIFF, MORPH ####[place] [address] Sodium [Moles/Vol] 131 mmol/L Low 136-145 [facility] ([place]) Comment on above: Performed By: #### C BC, BMP, GFR, DIFF, MORPH ####[place] [address] Urea nitrogen [Mass/Vol] 9.0 mg/dL Normal 8.0-22.0 [facility] ([place]) Comment on above: Performed By: #### C BC, BMP, GFR, DIFF, MORPH ####[place] [address] Urea nitrogen/Creatinine [Mass ratio] 20.5 ratio Normal 10.0-22.0 [facility] ([place]) Comment on above: Performed By: #### C BC, BMP, GFR, DIFF, MORPH ####[place] [address] CBCon 08-29-2019 Erythrocyte distribution width (RBC) [Ratio] 14.4 % Normal 11.5-15.5 [facility] ([place]) Comment on above: Performed By: #### C BC, BMP, GFR, DIFF, MORPH ####[place] [address] Hematocrit (Bld) [Volume fraction] 29.2 % Low 34.0-46.0 [facility] ([place]) Comment on above: Performed By: #### C BC, BMP, GFR, DIFF, MORPH ####[place] [address] Hemoglobin (Bld) [Mass/Vol] 9.7 G/dL Low 12.0-16.0 [facility] ([place]) Comment on above: Performed By: #### C BC, BMP, GFR, DIFF, MORPH ####[place] [address] MCH (RBC) [Entitic mass] 32.5 pg Normal 27.0-33.0 [facility] ([place]) Comment on above: Performed By: #### C BC, BMP, GFR, DIFF, MORPH ####[address] [address] MCHC (RBC) [Mass/Vol] 33.2 G/dL Normal 32.0-36.0 [facility] ([place]) Comment on above: Performed By: #### C BC, BMP, GFR, DIFF, MORPH ####[place] [address] MCV (RBC) [Entitic vol] 97.8 fL Normal 80.0-99.0 A [facility] ([place]) Comment on above: Performed By: #### C BC, BMP, GFR, DIFF, MORPH ####[place] [address] Platelet mean volume (Bld) [Entitic vol] 6.7 fL Normal 6.6-10.5 [facility] ([place]) Comment on above: Performed By: #### C BC, BMP, GFR, DIFF, MORPH ####[place] [address] Platelets (Bld) [#/Vol] 434 10 3/mcL Normal 150-450 [facility] ([place]) Comment on above: Performed By: #### C BC, BMP, GFR, DIFF, MORPH ####[place] [address] RBC (Bld) [#/Vol] 2.98 10 6/mcL Low 4.10-5.30 Counts include 234 beds at the [facility] ([place]) Comment on above: Performed By: #### C BC, BMP, GFR, DIFF, MORPH ####[place] [address] WBC (Bld) [#/Vol] 18.40 10 3/mcL High 4.50-10.80 [facility] ([place]) Comment on above: Performed By: #### C BC, BMP, GFR, DIFF, MORPH ####[place] [address] .Auto Diffon 08-28-2019 Ammonia (P) [Mass/Vol] 2.30 10 3/mcL High 0.09-1.40 [facility] ([place]) Comment on above: Performed By: #### M G, CMP, GFR, CBC, ADIFF, ANEU ####[address] [address] Basophils (Bld) [#/Vol] 0.10 10 3/mcL Normal 0.00-0.27 [facility] ([place]) Comment on above: Performed By: #### M G, CMP, GFR, CBC, ADIFF, ANEU ####[address] [address] Basophils/100 WBC (Bld) 0.4 % Normal 0.0-2.5 A [facility] ([place]) Comment on above: Performed By: #### M G, CMP, GFR, CBC, ADIFF, ANEU ####[address] [address] Eosinophils (Bld) [#/Vol] 0.50 10 3/mcL Normal 0.00-0.65 [facility] ([place]) Comment on above: Performed By: #### M G, CMP, GFR, CBC, ADIFF, ANEU ####[address] [address] Eosinophils/100 WBC (Bld) 2.8 % Normal 0.0-6.0 [facility] ([place]) Comment on above: Performed By: #### M G, CMP, GFR, CBC, ADIFF, ANEU ####[address] [address] Lymphocytes (Bld) [#/Vol] 1.50 10 3/mcL Normal 0.90-4.32 [facility] ([place]) Comment on above: Performed By: #### M G, CMP, GFR, CBC, ADIFF, ANEU ####[address] [address] Lymphocytes/100 WBC (Bld) 8.2 % Low 20.0-40.0 [facility] ([place]) Comment on above: Performed By: #### M G, CMP, GFR, CBC, ADIFF, ANEU ####[address] [address] Monocytes/100 WBC (Bld) 13.1 % High 2.0-13.0 A [facility] ([place]) Comment on above: Performed By: #### M G, CMP, GFR, CBC, ADIFF, ANEU ####[place] [id number] [place] [address] Neutrophils/100 WBC (Bld) 75.5 % High 50.0-75.0 [facility] ([place]) Comment on above: Performed By: #### M G, CMP, GFR, CBC, ADIFF, ANEU ####[address] [address] .GFRon 08-28-2019 GFR >60 Normal Counts include 234 beds at the [facility] ([place]) Comment on above: Result Comment: GFR Population [...] meters Performed By: #### G FR, BMP ####[address] [address] GFR Non- >60 Normal [facility] ([place]) Comment on above: Result Comment: GFR Population [...] meters Performed By: #### G FR, BMP ####[place] [address] .NEUABSon 08-28-2019 Neutrophils (Bld) [#/Vol] 13.50 10 3/mcL High 2.25-8.10 [facility] ([place]) Comment on above: Performed By: #### M G, CMP, GFR, CBC, ADIFF, ANEU ####[place] [address] BMPon 08-28-2019 Potassium [Moles/Vol] 3.5 mmol/L Normal 3.5-5.0 [facility] ([place]) Comment on above: Performed By: #### Carolyn RANGEL, BMP ####[place] [address] Calcium [Mass/Vol] 7.5 mg/dL Low 8.4-10.1 [facility] ([place]) Comment on above: Performed By: #### Carolyn FR, BMP ####[place] [address] Chloride [Moles/Vol] 100 mmol/L Normal 98-110 Counts include 234 beds at the [facility] ([place]) Comment on above: Performed By: #### Carolyn FR, BMP ####[place] [address] CO2 [Moles/Vol] 25 mmol/L Normal 22-32 [facility] ([place]) Comment on above: Performed By: #### G FR, BMP ####[place] [address] Creatinine [Mass/Vol] 0.45 mg/dL Low 0.50-1.20 [facility] ([place]) Comment on above: Performed By: #### G FR, BMP ####[place] [address] Electrolyte Balance 8.0 mEq/L Normal 4.0-15.0 [facility] ([place]) Comment on above: Performed By: #### G FR, BMP ####[place] [address] Glucose [Mass/Vol] 103 mg/dL Normal 82-115 [facility] ([place]) Comment on above: Performed By: #### Carolyn RANGEL, BMP ####[place] [address] Sodium [Moles/Vol] 133 mmol/L Low 136-145 [facility] ([place]) Comment on above: Performed By: #### Carolyn RANGEL, BMP ####[place] [address] Urea nitrogen [Mass/Vol] 10.0 mg/dL Normal 8.0-22.0 [facility] ([place]) Comment on above: Performed By: #### Carolyn RANGEL, BMP ####[place] [address] Urea nitrogen/Creatinine [Mass ratio] 22.2 ratio High 10.0-22.0 [facility] ([place]) Comment on above: Performed By: #### Carolyn RANGEL, BMP ####[place] [address] CBCon 08-28-2019 Erythrocyte distribution width (RBC) [Ratio] 14.2 % Normal 11.5-15.5 [facility] ([place]) Comment on above: Performed By: #### M G, CMP, GFR, CBC, ADIFF, ANEU ####[place] [address] Hematocrit (Bld) [Volume fraction] 27.4 % Low 34.0-46.0 [facility] ([place]) Comment on above: Performed By: #### M G, CMP, GFR, CBC, ADIFF, ANEU ####[address] [address] Hemoglobin (Bld) [Mass/Vol] 9.1 G/dL Low 12.0-16.0 [facility] ([place]) Comment on above: Performed By: #### M G, CMP, GFR, CBC, ADIFF, ANEU ####[address] [address] MCH (RBC) [Entitic mass] 33.0 pg Normal 27.0-33.0 [facility] ([place]) Comment on above: Performed By: #### M G, CMP, GFR, CBC, ADIFF, ANEU ####[address] [address] MCHC (RBC) [Mass/Vol] 33.2 G/dL Normal 32.0-36.0 [facility] ([place]) Comment on above: Performed By: #### M G, CMP, GFR, CBC, ADIFF, ANEU ####[place] [address] MCV (RBC) [Entitic vol] 99.6 fL High 80.0-99.0 A [facility] ([place]) Comment on above: Performed By: #### M G, CMP, GFR, CBC, ADIFF, ANEU ####[place] [address] Platelet mean volume (Bld) [Entitic vol] 7.1 fL Normal 6.6-10.5 [facility] ([place]) Comment on above: Performed By: #### M G, CMP, GFR, CBC, ADIFF, ANEU ####[place] [address] Platelets (Bld) [#/Vol] 363 10 3/mcL Normal 150-450 [facility] ([place]) Comment on above: Performed By: #### M G, CMP, GFR, CBC, ADIFF, ANEU ####[place] [address] RBC (Bld) [#/Vol] 2.75 10 6/mcL Low 4.10-5.30 Counts include 234 beds at the [facility] ([place]) Comment on above: Performed By: #### M G, CMP, GFR, CBC, ADIFF, ANEU ####[place] [id number] WBC (Bld) [#/Vol] 17.90 10 3/mcL High 4.50-10.80 [facility] ([place]) Comment on above: Performed By: #### M G, CMP, GFR, CBC, ADIFF, ANEU ####[place] [address] CBLon 08-28-2019 CBL . MICRO - Microbiology [...] Locations *1: This test was performed at: [address], [address] [place] [address] ([place]) Comment on above: Performed By: #### C BC, CMP, GFR, DIFF, MORPH #### [place] [address] CBL . MICRO - Microbiology PROCEDURE: Blood [...] Locations *1: This test was performed at: [address], [address] [place] [address] ([place]) Comment on above: Performed By: #### C BC, CMP, GFR, DIFF, MORPH #### [place] [address] .GFRon 08-27-2019 GFR >60 Normal Counts include 234 beds at the [facility] ([place]) Comment on above: Result Comment: GFR Population [...] M G, CMP, GFR, CBC, ADIFF, ANEU ####[address] [address] GFR Non- >60 Normal [facility] ([place]) Comment on above: Result Comment: GFR Population [...] M G, CMP, GFR, CBC, ADIFF, ANEU ####[address] [address] .Manual Diffon 08-27-2019 Bands 1.0 % Normal 0.0-5.0 [facility] ([place]) Comment on above: Performed By: #### C BC, DIFF, MORPH ####[address] [address] Basophil %, Manual 0.0 % Normal 0.0-2.5 [facility] ([place]) Comment on above: Performed By: #### C BC, DIFF, MORPH ####[address] [address] Basophil, Abs Manual 0.00 10 3/mcL Normal 0.00-0.27 A [facility] ([place]) Comment on above: Performed By: #### C BC, DIFF, MORPH ####[address] [address] Cells Counted 100 Normal [facility] ([place]) Comment on above: Performed By: #### C BC, DIFF, MORPH ####[address] [address] Eosinophil %, Manual 5.0 % Normal 0.0-6.0 Counts include 234 beds at the [facility] ([place]) Comment on above: Performed By: #### C BC, DIFF, MORPH ####[address] [address] Eosinophil, Abs Manual 0.84 10 3/mcL High 0.00-0.65 [facility] ([place]) Comment on above: Performed By: #### C BC, DIFF, MORPH ####[place] [address] Lymphocyte %, Manual 5.0 % Low 20.0-40.0 Counts include 234 beds at the [facility] ([place]) Comment on above: Performed By: #### C BC, DIFF, MORPH ####[address] [address] Lymphocyte, Abs Manual 0.84 10 3/mcL Low 0.90-4.32 [facility] ([place]) Comment on above: Performed By: #### C BC, DIFF, MORPH ####[place] [address] Monocyte %, Manual 6.0 % Normal 2.0-13.0 [facility] ([place]) Comment on above: Performed By: #### C BC, DIFF, MORPH ####[place] [address] Monocyte, Abs Manual 1.01 10 3/mcL Normal 0.09-1.40 A [facility] ([place]) Comment on above: Performed By: #### C BC, DIFF, MORPH ####[address] [address] Neutrophil %, Manual 83.0 % High 50.0-75.0 Counts include 234 beds at the [facility] ([place]) Comment on above: Performed By: #### C BC, DIFF, MORPH ####[address] [address] Neutrophil, Abs Manual 14.20 10 3/mcL High 2.25-8.10 [facility] ([place]) Comment on above: Performed By: #### C BC, DIFF, MORPH ####[address] [address] .Morphon 08-27-2019 Platelets (Bld) [#/Vol] Normal Normal A [facility] ([place]) Comment on above: Performed By: #### C BC, DIFF, MORPH ####[place] [address] Polychrom Slight Normal [facility] ([place]) Comment on above: Performed By: #### C BC, DIFF, MORPH ####[place] [address] CBCon 08-27-2019 Erythrocyte distribution width (RBC) [Ratio] 14.2 % Normal 11.5-15.5 [facility] ([place]) Comment on above: Performed By: #### C BC, DIFF, MORPH ####[address] [address] Hematocrit (Bld) [Volume fraction] 29.2 % Low 34.0-46.0 [facility] ([place]) Comment on above: Performed By: #### C BC, DIFF, MORPH ####[place] [address] Hemoglobin (Bld) [Mass/Vol] 10.1 G/dL Low 12.0-16.0 [facility] ([place]) Comment on above: Performed By: #### C BC, DIFF, MORPH ####[place] [address] MCH (RBC) [Entitic mass] 33.8 pg High 27.0-33.0 [facility] ([place]) Comment on above: Performed By: #### C BC, DIFF, MORPH ####[address] [address] MCHC (RBC) [Mass/Vol] 34.6 G/dL Normal 32.0-36.0 [facility] ([place]) Comment on above: Performed By: #### C BC, DIFF, MORPH ####[address] [address] MCV (RBC) [Entitic vol] 97.7 fL Normal 80.0-99.0 [facility] ([place]) Comment on above: Performed By: #### C BC, DIFF, MORPH ####[address] [address] Platelet mean volume (Bld) [Entitic vol] 6.6 fL Normal 6.6-10.5 [facility] ([place]) Comment on above: Performed By: #### C BC, DIFF, MORPH ####[place] [address] Platelets (Bld) [#/Vol] 342 10 3/mcL Normal 150-450 [facility] ([place]) Comment on above: Performed By: #### C BC, DIFF, MORPH ####[address] [address] RBC (Bld) [#/Vol] 2.99 10 6/mcL Low 4.10-5.30 Counts include 234 beds at the [facility] ([place]) Comment on above: Performed By: #### C BC, DIFF, MORPH ####[address] [address] WBC (Bld) [#/Vol] 16.90 10 3/mcL High 4.50-10.80 [facility] ([place]) Comment on above: Performed By: #### C BC, DIFF, MORPH ####[address] [address] CMPon 08-27-2019 Albumin/Globulin [Mass ratio] 0.8 {ratio} Low 0.9-1.6 [facility] ([place]) Comment on above: Performed By: #### M G, CMP, GFR, CBC, ADIFF, ANEU ####[address] [address] ALP [Catalytic activity/Vol] 99 U/L Normal 38-126 [facility] ([place]) Comment on above: Performed By: #### M G, CMP, GFR, CBC, ADIFF, ANEU ####[address] [address] ALT [Catalytic activity/Vol] 50 U/L High 10-49 [facility] ([place]) Comment on above: Performed By: #### M G, CMP, GFR, CBC, ADIFF, ANEU ####[address] [address] Bili Total 0.9 mg/dL Normal 0.2-1.2 [facility] ([place]) Comment on above: Result Comment: Use of this assay is not recommended for patients undergoing treatment with eltrombopag due to the potential for falsely elevated results. Performed By: #### M G, CMP, GFR, CBC, ADIFF, ANEU ####[address] [address] Creatinine [Mass/Vol] 0.39 mg/dL Low 0.50-1.20 [facility] ([place]) Comment on above: Performed By: #### M G, CMP, GFR, CBC, ADIFF, ANEU ####[address] [address] Globulin (S) [Mass/Vol] 3.2 G/dL Normal 1.5-3.8 A [facility] ([place]) Comment on above: Performed By: #### M G, CMP, GFR, CBC, ADIFF, ANEU ####[address] [address] Protein [Mass/Vol] 5.8 G/dL Low 6.0-8.5 [facility] ([place]) Comment on above: Performed By: #### M G, CMP, GFR, CBC, ADIFF, ANEU ####[address] [address] Urea nitrogen/Creatinine [Mass ratio] 25.6 ratio High 10.0-22.0 [facility] ([place]) Comment on above: Performed By: #### M G, CMP, GFR, CBC, ADIFF, ANEU ####[place] [address] Potassium [Moles/Vol] 2.5 mmol/L Critically abnormal 3.5-5.0 [facility] ([place]) Comment on above: Performed By: #### M G, CMP, GFR, CBC, ADIFF, ANEU ####[place] [address] Albumin [Mass/Vol] 2.6 G/dL Low 3.2-4.8 [facility] ([place]) Comment on above: Performed By: #### M G, CMP, GFR, CBC, ADIFF, ANEU ####[place] [address] AST [Catalytic activity/Vol] 38 U/L High 8-34 [facility] ([place]) Comment on above: Performed By: #### M G, CMP, GFR, CBC, ADIFF, ANEU ####[place] [address] Calcium [Mass/Vol] 7.3 mg/dL Low 8.4-10.1 [facility] [facility] Comment on above: Performed By: #### M G, CMP, GFR, CBC, ADIFF, ANEU ####[place] [address] Chloride [Moles/Vol] 96 mmol/L Low 98-110 Counts include 234 beds at the [facility] ([place]) Comment on above: Performed By: #### M G, CMP, GFR, CBC, ADIFF, ANEU ####[place] [address] CO2 [Moles/Vol] 27 mmol/L Normal 22-32 [facility] ([place]) Comment on above: Performed By: #### M G, CMP, GFR, CBC, ADIFF, ANEU ####[place] [address] Electrolyte Balance 10.0 mEq/L Normal 4.0-15.0 [facility] ([place]) Comment on above: Performed By: #### M G, CMP, GFR, CBC, ADIFF, ANEU ####[place] [address] Glucose [Mass/Vol] 100 mg/dL Normal 82-115 [facility] ([place]) Comment on above: Performed By: #### M G, CMP, GFR, CBC, ADIFF, ANEU ####[address] [address] Sodium [Moles/Vol] 133 mmol/L Low 136-145 [facility] ([place]) Comment on above: Performed By: #### M G, CMP, GFR, CBC, ADIFF, ANEU ####[place] [address] Urea nitrogen [Mass/Vol] 10.0 mg/dL Normal 8.0-22.0 [facility] ([place]) Comment on above: Performed By: #### M G, CMP, GFR, CBC, ADIFF, ANEU ####[place] [address] MGon 08-27-2019 Magnesium [Mass/Vol] 1.9 mg/dL Normal 1.6-2.4 Counts include 234 beds at the [facility] ([place]) Comment on above: Performed By: #### M G, CMP, GFR, CBC, ADIFF, ANEU ####[place] [address] .Auto Diffon 08-25-2019 Ammonia (P) [Mass/Vol] 1.40 10 3/mcL Normal 0.09-1.40 [facility] ([place]) Comment on above: Performed By: #### C BC, CMP, GFR, DIFF, MORPH #### [place] [address] Basophils (Bld) [#/Vol] 0.00 10 3/mcL Normal 0.00-0.27 [facility] ([place]) Comment on above: Performed By: #### C BC, CMP, GFR, DIFF, MORPH #### [place] [address] Basophils/100 WBC (Bld) 0.2 % Normal 0.0-2.5 A [facility] ([place]) Comment on above: Performed By: #### C BC, CMP, GFR, DIFF, MORPH #### [address] [address] Eosinophils (Bld) [#/Vol] 0.10 10 3/mcL Normal 0.00-0.65 [facility] ([place]) Comment on above: Performed By: #### C BC, CMP, GFR, DIFF, MORPH #### [address] [address] Eosinophils/100 WBC (Bld) 0.3 % Normal 0.0-6.0 [facility] ([place]) Comment on above: Performed By: #### C BC, CMP, GFR, DIFF, MORPH #### [address] [address] Lymphocytes (Bld) [#/Vol] 0.60 10 3/mcL Low 0.90-4.32 [facility] ([place]) Comment on above: Performed By: #### C BC, CMP, GFR, DIFF, MORPH #### [address] [address] Lymphocytes/100 WBC (Bld) 2.9 % Low 20.0-40.0 [facility] ([place]) Comment on above: Performed By: #### C BC, CMP, GFR, DIFF, MORPH #### [address] [address] Monocytes/100 WBC (Bld) 7.4 % Normal 2.0-13.0 A [facility] ([place]) Comment on above: Performed By: #### C BC, CMP, GFR, DIFF, MORPH #### [address] [address] Neutrophils/100 WBC (Bld) 89.2 % High 50.0-75.0 [facility] ([place]) Comment on above: Performed By: #### C BC, CMP, GFR, DIFF, MORPH #### [address] [address] .GFRon 08-25-2019 GFR >60 Normal Counts include 234 beds at the [facility] ([place]) Comment on above: Result Comment: GFR [...] C BC, CMP, GFR, DIFF, MORPH #### [address] [address] GFR Non- >60 Normal [facility] ([place]) Comment on above: Result Comment: GFR Population [...] C BC, CMP, GFR, DIFF, MORPH #### [place] [address] .NEUABSon 08-25-2019 Neutrophils (Bld) [#/Vol] 17.20 10 3/mcL High 2.25-8.10 [facility] ([place]) Comment on above: Performed By: #### C BC, CMP, GFR, DIFF, MORPH #### [address] [address] BMPon 08-25-2019 Calcium [Mass/Vol] 6.7 mg/dL Critically abnormal 8.4-10.1 [facility] ([place]) Comment on above: Performed By: #### C BC, CMP, GFR, DIFF, MORPH #### [address] [address] Potassium [Moles/Vol] 2.6 mmol/L Critically abnormal 3.5-5.0 [facility] ([place]) Comment on above: Performed By: #### C BC, CMP, GFR, DIFF, MORPH #### [address] [address] Chloride [Moles/Vol] 99 mmol/L Normal 98-110 Counts include 234 beds at the [facility] ([place]) Comment on above: Performed By: #### C BC, CMP, GFR, DIFF, MORPH #### [address] [address] CO2 [Moles/Vol] 25 mmol/L Normal 22-32 [facility] ([place]) Comment on above: Performed By: #### C BC, CMP, GFR, DIFF, MORPH #### [address] [address] Creatinine [Mass/Vol] 0.38 mg/dL Low 0.50-1.20 [facility] ([place]) Comment on above: Performed By: #### C BC, CMP, GFR, DIFF, MORPH #### [address] [address] Electrolyte Balance 11.0 mEq/L Normal 4.0-15.0 [facility] ([place]) Comment on above: Performed By: #### C BC, CMP, GFR, DIFF, MORPH #### [address] [address] Glucose [Mass/Vol] 72 mg/dL Low 82-115 [facility] ([place]) Comment on above: Performed By: #### C BC, CMP, GFR, DIFF, MORPH #### [address] [address] Sodium [Moles/Vol] 135 mmol/L Low 136-145 [facility] ([place]) Comment on above: Performed By: #### C BC, CMP, GFR, DIFF, MORPH #### [address] [address] Urea nitrogen [Mass/Vol] 20.0 mg/dL Normal 8.0-22.0 [facility] ([place]) Comment on above: Performed By: #### C BC, CMP, GFR, DIFF, MORPH #### [place] [id number] Urea nitrogen/Creatinine [Mass ratio] 52.6 ratio High 10.0-22.0 [facility] ([place]) Comment on above: Performed By: #### C BC, CMP, GFR, DIFF, MORPH #### [place] [id number] CBCon 08-25-2019 Erythrocyte distribution width (RBC) [Ratio] 14.5 % Normal 11.5-15.5 [facility] ([place]) Comment on above: Performed By: #### C BC, CMP, GFR, DIFF, MORPH #### [place] [address] Hematocrit (Bld) [Volume fraction] 27.5 % Low 34.0-46.0 [facility] ([place]) Comment on above: Performed By: #### C BC, CMP, GFR, DIFF, MORPH #### [place] [address] Hemoglobin (Bld) [Mass/Vol] 9.1 G/dL Low 12.0-16.0 [facility] ([place]) Comment on above: Performed By: #### C BC, CMP, GFR, DIFF, MORPH #### [place] [id number] MCH (RBC) [Entitic mass] 33.1 pg High 27.0-33.0 [facility] ([place]) Comment on above: Performed By: #### C BC, CMP, GFR, DIFF, MORPH #### [place] [id number] MCHC (RBC) [Mass/Vol] 33.3 G/dL Normal 32.0-36.0 [facility] ([place]) Comment on above: Performed By: #### C BC, CMP, GFR, DIFF, MORPH #### [place] [id number] MCV (RBC) [Entitic vol] 99.7 fL High 80.0-99.0 A [facility] ([place]) Comment on above: Performed By: #### C BC, CMP, GFR, DIFF, MORPH #### [address] [address] Platelet mean volume (Bld) [Entitic vol] 7.5 fL Normal 6.6-10.5 [facility] ([place]) Comment on above: Performed By: #### C BC, CMP, GFR, DIFF, MORPH #### [address] [address] Platelets (Bld) [#/Vol] 211 10 3/mcL Normal 150-450 [facility] ([place]) Comment on above: Performed By: #### C BC, CMP, GFR, DIFF, MORPH #### [address] [address] RBC (Bld) [#/Vol] 2.76 10 6/mcL Low 4.10-5.30 Counts include 234 beds at the [facility] ([place]) Comment on above: Performed By: #### C BC, CMP, GFR, DIFF, MORPH #### [address] [address] WBC (Bld) [#/Vol] 19.30 10 3/mcL High 4.50-10.80 [facility] ([place]) Comment on above: Performed By: #### C BC, CMP, GFR, DIFF, MORPH #### [address] [address] COVIDon 08-25-2019 COVID 19 Result INTERNET SALESPERSON See Below Normal [facility] ([place]) Comment on above: Result Comment: Nega tive Negative for COVID19 (SARS CoV2) by PCR. This test was developed and its performance characteristics determined by [facility] [place]. This test has been authorized by FDA under an Emergency Use Authorization (EUA). This test has been validated in accordance with the FDA's Guidance Document Policy for Diagnostics Testing in Laboratories Certified to Perform High Complexity Testing under CLIA prior to Emergency use Authorization for Coronavirus Disease 2019 during the Public Health Emergency issued on June 20, 2019. Performed By: [facility] [address] [place] [address] Suppression Crew Leader: Rigoberto Avery III, M.D. CLIA#: [id number] Phone#: Performed By: #### C BC, CMP, GFR, DIFF, MORPH #### [address] [address] COVID 19 Source INTERNET SALESPERSON See Below [facility] ([place]) Comment on above: Result Comment: Naso pharyngeal Swab Performed By: [facility] [address] [place] [address] Suppression Crew Leader: Rigoberto Avery III, M.D. CLIA#: [id number] Phone#: Performed By: #### C BC, CMP, GFR, DIFF, MORPH #### [place] [address] CURon 08-25-2019 CUR . MICRO - Microbiology [...] Locations *1: This test was performed at: [address], [address] [place] [address] ([place]) Comment on above: Performed By: #### C BC, CMP, GFR, DIFF, MORPH #### [address] [address] Jeffrey 08-25-2019 Potassium [Moles/Vol] 3.3 mmol/L Low 3.5-5.0 [facility] ([place]) Comment on above: Performed By: #### C BC, CMP, GFR, DIFF, MORPH #### [address] [address] MGon 08-25-2019 Magnesium [Mass/Vol] 2.3 mg/dL Normal 1.6-2.4 Counts include 234 beds at the [facility] ([place]) Comment on above: Performed By: #### C BC, CMP, GFR, DIFF, MORPH #### [address] [address] PHOSon 08-25-2019 Phosphate [Mass/Vol] 2.6 mg/dL Normal 2.5-4.5 Counts include 234 beds at the [facility] ([place]) Comment on above: Performed By: #### C BC, CMP, GFR, DIFF, MORPH #### [place] [address] .Auto Diffon 08-24-2019 Ammonia (P) [Mass/Vol] 1.50 10 3/mcL High 0.09-1.40 [facility] ([place]) Comment on above: Performed By: #### C BC, CMP, GFR, DIFF, MORPH #### [address] [address] Basophils (Bld) [#/Vol] 0.00 10 3/mcL Normal 0.00-0.27 [facility] ([place]) Comment on above: Performed By: #### C BC, CMP, GFR, DIFF, MORPH #### [address] [address] Basophils/100 WBC (Bld) 0.1 % Normal 0.0-2.5 A [facility] ([place]) Comment on above: Performed By: #### C BC, CMP, GFR, DIFF, MORPH #### [address] [address] Eosinophils (Bld) [#/Vol] 0.00 10 3/mcL Normal 0.00-0.65 [facility] ([place]) Comment on above: Performed By: #### C BC, CMP, GFR, DIFF, MORPH #### [address] [address] Eosinophils/100 WBC (Bld) 0.2 % Normal 0.0-6.0 [facility] ([place]) Comment on above: Performed By: #### C BC, CMP, GFR, DIFF, MORPH #### [address] [address] Lymphocytes (Bld) [#/Vol] 1.00 10 3/mcL Normal 0.90-4.32 [facility] ([place]) Comment on above: Performed By: #### C BC, CMP, GFR, DIFF, MORPH #### [address] [address] Lymphocytes/100 WBC (Bld) 4.2 % Low 20.0-40.0 [facility] ([place]) Comment on above: Performed By: #### C BC, CMP, GFR, DIFF, MORPH #### [address] [address] Monocytes/100 WBC (Bld) 6.7 % Normal 2.0-13.0 A [facility] ([place]) Comment on above: Performed By: #### C BC, CMP, GFR, DIFF, MORPH #### [address] [address] Neutrophils/100 WBC (Bld) 88.8 % High 50.0-75.0 [facility] ([place]) Comment on above: Performed By: #### C BC, CMP, GFR, DIFF, MORPH #### [address] [address] .GFRon 08-24-2019 GFR Non- >60 Normal [facility] ([place]) Comment on above: Result Comment: GFR Population [...] C BC, CMP, GFR, DIFF, MORPH #### [address] [address] GFR >60 Normal Counts include 234 beds at the [facility] ([place]) Comment on above: Result Comment: GFR Population [...] C BC, CMP, GFR, DIFF, MORPH #### [place] [address] .Morphon 08-24-2019 Anisocytosis Ql (Bld) Slight Normal [facility] ([place]) Comment on above: Performed By: #### C BC, CMP, GFR, DIFF, MORPH #### [place] [address] Hypochrom Slight Normal [facility] ([place]) Comment on above: Performed By: #### C BC, CMP, GFR, DIFF, MORPH #### [place] [address] Platelets (Bld) [#/Vol] Normal Normal A [facility] ([place]) Comment on above: Performed By: #### C BC, CMP, GFR, DIFF, MORPH #### [place] [address] Poik Slight Normal [facility] ([place]) Comment on above: Performed By: #### C BC, CMP, GFR, DIFF, MORPH #### [place] [address] .NEUABSon 08-24-2019 Neutrophils (Bld) [#/Vol] 20.50 10 3/mcL High 2.25-8.10 [facility] ([place]) Comment on above: Performed By: #### C BC, CMP, GFR, DIFF, MORPH #### [place] [address] AMYon 08-24-2019 Amylase [Catalytic activity/Vol] 85 U/L Normal 25-115 [facility] ([place]) Comment on above: Performed By: #### C BC, CMP, GFR, DIFF, MORPH #### [place] [address] APTTon 08-24-2019 aPTT Coag (Bld) [Time] 26.2 s Normal 25.0-35.0 [facility] ([place]) Comment on above: Result Comment: For Heparin anticoagulation therapy, the recommended therapeutic range is: 54-77 seconds (APTT Correlation with Anti-Xa therapeutic range of 0.3-0.7 units/ml). PLEASE REFERENCE THE PHARMACY PROTOCOL FOR DOSING. Performed By: #### C BC, CMP, GFR, DIFF, MORPH #### [place] [address] aPTT Coag (Bld) [Time] None Normal [facility] ([place]) Comment on above: Performed By: #### C BC, CMP, GFR, DIFF, MORPH #### [place] [address] CBCon 08-24-2019 Erythrocyte distribution width (RBC) [Ratio] 14.2 % Normal 11.5-15.5 [facility] ([place]) Comment on above: Performed By: #### C BC, CMP, GFR, DIFF, MORPH #### [place] [address] Hematocrit (Bld) [Volume fraction] 28.9 % Low 34.0-46.0 [facility] ([place]) Comment on above: Performed By: #### C BC, CMP, GFR, DIFF, MORPH #### [place] [address] Hemoglobin (Bld) [Mass/Vol] 9.8 G/dL Low 12.0-16.0 [facility] ([place]) Comment on above: Performed By: #### C BC, CMP, GFR, DIFF, MORPH #### [place] [address] MCH (RBC) [Entitic mass] 33.7 pg High 27.0-33.0 [facility] ([place]) Comment on above: Performed By: #### C BC, CMP, GFR, DIFF, MORPH #### [address] [address] MCHC (RBC) [Mass/Vol] 33.8 G/dL Normal 32.0-36.0 [facility] ([place]) Comment on above: Performed By: #### C BC, CMP, GFR, DIFF, MORPH #### [address] [address] MCV (RBC) [Entitic vol] 99.7 fL High 80.0-99.0 A [facility] ([place]) Comment on above: Performed By: #### C BC, CMP, GFR, DIFF, MORPH #### [address] [address] Platelet mean volume (Bld) [Entitic vol] 8.5 fL Normal 6.6-10.5 [facility] ([place]) Comment on above: Performed By: #### C BC, CMP, GFR, DIFF, MORPH #### [address] [address] Platelets (Bld) [#/Vol] 201 10 3/mcL Normal 150-450 [facility] ([place]) Comment on above: Performed By: #### C BC, CMP, GFR, DIFF, MORPH #### [address] [address] RBC (Bld) [#/Vol] 2.90 10 6/mcL Low 4.10-5.30 Counts include 234 beds at the [facility] ([place]) Comment on above: Performed By: #### C BC, CMP, GFR, DIFF, MORPH #### [address] [address] WBC (Bld) [#/Vol] 23.10 10 3/mcL High 4.50-10.80 [facility] ([place]) Comment on above: Performed By: #### C BC, CMP, GFR, DIFF, MORPH #### [address] [address] CKon 08-24-2019 CK [Catalytic activity/Vol] 71 U/L Normal 7-185 [facility] ([place]) Comment on above: Performed By: #### C BC, CMP, GFR, DIFF, MORPH #### [address] [address] CMPon 08-24-2019 Albumin/Globulin [Mass ratio] 1.0 {ratio} Normal 0.9-1.6 [facility] ([place]) Comment on above: Performed By: #### C BC, CMP, GFR, DIFF, MORPH #### [address] [address] ALP [Catalytic activity/Vol] 77 U/L Normal 38-126 [facility] ([place]) Comment on above: Performed By: #### C BC, CMP, GFR, DIFF, MORPH #### [place] [id number] Bili Total 1.1 mg/dL Normal 0.2-1.2 [facility] ([place]) Comment on above: Result Comment: Use of this assay is not recommended for patients undergoing treatment with eltrombopag due to the potential for falsely elevated results. Performed By: #### C BC, CMP, GFR, DIFF, MORPH #### [address] [address] Creatinine [Mass/Vol] 0.48 mg/dL Low 0.50-1.20 [facility] ([place]) Comment on above: Performed By: #### C BC, CMP, GFR, DIFF, MORPH #### [address] [address] Globulin (S) [Mass/Vol] 3.0 G/dL Normal 1.5-3.8 [facility] ([place]) Comment on above: Performed By: #### C BC, CMP, GFR, DIFF, MORPH #### [address] [address] Protein [Mass/Vol] 5.9 G/dL Low 6.0-8.5 [facility] ([place]) Comment on above: Performed By: #### C BC, CMP, GFR, DIFF, MORPH #### [place] [id number] Urea nitrogen/Creatinine [Mass ratio] 41.7 ratio High 10.0-22.0 [facility] ([place]) Comment on above: Performed By: #### C BC, CMP, GFR, DIFF, MORPH #### [address] [address] Albumin [Mass/Vol] 2.9 G/dL Low 3.2-4.8 [facility] ([place]) Comment on above: Performed By: #### C BC, CMP, GFR, DIFF, MORPH #### [address] [address] ALT [Catalytic activity/Vol] 48 U/L Normal 10-49 [facility] ([place]) Comment on above: Performed By: #### C BC, CMP, GFR, DIFF, MORPH #### [address] [address] AST [Catalytic activity/Vol] 27 U/L Normal 8-34 [facility] ([place]) Comment on above: Performed By: #### C BC, CMP, GFR, DIFF, MORPH #### [address] [address] Calcium [Mass/Vol] 7.3 mg/dL Low 8.4-10.1 [facility] ([place]) Comment on above: Performed By: #### C BC, CMP, GFR, DIFF, MORPH #### [address] [address] Chloride [Moles/Vol] 94 mmol/L Low 98-110 Counts include 234 beds at the [facility] ([place]) Comment on above: Performed By: #### C BC, CMP, GFR, DIFF, MORPH #### [address] [address] CO2 [Moles/Vol] 28 mmol/L Normal 22-32 [facility] ([place]) Comment on above: Performed By: #### C BC, CMP, GFR, DIFF, MORPH #### [address] [address] Electrolyte Balance 10.0 mEq/L Normal 4.0-15.0 [facility] ([place]) Comment on above: Performed By: #### C BC, CMP, GFR, DIFF, MORPH #### [place] [address] Glucose [Mass/Vol] 100 mg/dL Normal 82-115 [facility] ([place]) Comment on above: Performed By: #### C BC, CMP, GFR, DIFF, MORPH #### [place] [address] Potassium [Moles/Vol] 2.8 mmol/L Low 3.5-5.0 [facility] ([place]) Comment on above: Performed By: #### C BC, CMP, GFR, DIFF, MORPH #### [place] [address] Sodium [Moles/Vol] 132 mmol/L Low 136-145 [facility] ([place]) Comment on above: Performed By: #### C BC, CMP, GFR, DIFF, MORPH #### [place] [address] Urea nitrogen [Mass/Vol] 20.0 mg/dL Normal 8.0-22.0 [facility] ([place]) Comment on above: Performed By: #### C BC, CMP, GFR, DIFF, MORPH #### [place] [address] CRPon 08-24-2019 CRP [Mass/Vol] 32.20 mg/dL High <=0.80 [facility] ([place]) Comment on above: Performed By: #### C BC, CMP, GFR, DIFF, MORPH #### [place] [address] CT HEAD OR BRAIN W/O CONTRAS Ton 08-24-2019 CT HEAD OR BRAIN W/O CONTRAST ORIGINAL CT HEAD OR BRAIN W/O CONTRAST CLINICAL STATEMENT: SDH. . Patient fell and hit back of head. Subdural hemorrhage. Patient transferred from [facility]. TECHNIQUE: Axial CT images from skull [...] Sign Date: 08/24/2019 9:25:31 AM Ordering Provider:Cristina St [facility] ([place]) DIMERon 08-24-2019 Fibrin D-dimer FEU IA (Bld) [Mass/Vol] 1800 ng/mL D-DU High 0-230 [facility] ([place]) Comment on above: Result Comment: Resu lts [...] C BC, CMP, GFR, DIFF, MORPH #### [facility] [address] [place] [address] Trixie 08-24-2019 Ferritin [Mass/Vol] 236 ng/mL Normal 8-252 [facility] ([place]) Comment on above: Performed By: #### C BC, CMP, GFR, DIFF, MORPH #### [facility] [address] [place] [address] FIBon 08-24-2019 Fibrinogen 482 mg/dL Normal 250-550 [facility] ([place]) Comment on above: Performed By: #### C BC, CMP, GFR, DIFF, MORPH #### [place] [address] LIPon 08-24-2019 Lipase Level 312 U/L Normal 73-393 [facility] ([place]) Comment on above: Performed By: #### C BC, CMP, GFR, DIFF, MORPH #### [place] [address] MGon 08-24-2019 Magnesium [Mass/Vol] 1.9 mg/dL Normal 1.6-2.4 Counts include 234 beds at the [facility] ([place]) Comment on above: Performed By: #### C BC, CMP, GFR, DIFF, MORPH #### [place] [address] PBNPon 08-24-2019 Natriuretic peptide B (Bld) [Mass/Vol] 369 pg/mL Normal 0-900 [facility] ([place]) Comment on above: Result Comment: NT-p roBNP results of less than 300 pg/mL effectively rules out acute congestive heart failure with 99% negative predictive value. Performed By: #### C BC, CMP, GFR, DIFF, MORPH #### [place] [address] PHOSon 08-24-2019 Phosphate [Mass/Vol] 2.2 mg/dL Low 2.5-4.5 Counts include 234 beds at the [facility] ([place]) Comment on above: Performed By: #### C BC, CMP, GFR, DIFF, MORPH #### [place] [address] Phosphate [Mass/Vol] 2.0 mg/dL Low 2.5-4.5 Counts include 234 beds at the [facility] ([place]) Comment on above: Performed By: #### C BC, CMP, GFR, DIFF, MORPH #### [place] [address] PROon 08-24-2019 INR Coag (PPP) [Relative time] 1.2 {INR} Normal [facility] ([place]) Comment on above: Result Comment: The [employer] (CHEST, 1991, [id number]) recommended therapeutic range for oral anticoagulant therapy is: LOW RISK: Prophylaxis of venous thrombosis INR: 2.0-3.0 Treatment of pulmonary embolism 2.0-3.0 Prevention of systemic embolism 2.0-3.0 HIGH RISK: Mechanical prosthetic valves 2.5-3.5 Performed By: #### C BC, CMP, GFR, DIFF, MORPH #### [address] [address] PT Coag (PPP) [Time] 13.8 s Normal 9.0-14.6 Counts include 234 beds at the [facility] ([place]) Comment on above: Result Comment: Effe ctive 11/04/07, Protime results may be affected by some antibiotics (i.e. Ciprofloxacin, Azithromycin, Bactrim) which may potentiate the action of oral anticoagulants, with further increases in Protime/INR. Performed By: #### C BC, CMP, GFR, DIFF, MORPH #### [place] [address] TRIGon 08-24-2019 Triglyceride [Mass/Vol] 71 mg/dL Normal 3-149 A [facility] ([place]) Comment on above: Result Comment: Trig lyceride Reference Interval: Less than 150 Normal 150-199 Borderline high risk 200-499 High risk 500 or higher Very high risk Performed By: #### C BC, CMP, GFR, DIFF, MORPH #### [place] [id number] Triglyceride [Mass/Vol] 74 mg/dL Normal 3-149 A [facility] ([place]) Comment on above: Result Comment: Trig lyceride Reference Interval: Less than 150 Normal 150-199 Borderline high risk 200-499 High risk 500 or higher Very high risk Performed By: #### C BC, CMP, GFR, DIFF, MORPH #### [place] [address] TROPIon 08-24-2019 Troponin I.cardiac [Mass/Vol] ng/mL Normal 0.000-0.040 [facility] ([place]) Comment on above: Result Comment: Trop onin I reference ranges (12/28/13): 0.00-0.040 ng/mL Negative and non-diagnostic. >0.040 ng/mL Consistent with cardiac damage, increased clinical risk and possibility of myocardial infarction. Serial measurements, a rise & fall in test results, clinical history, appropriate symptoms and/or ECG changes may help assess possibility of DC. *Other non-acute coronary syndrome conditions such as CHF, myocarditis, pulmonary emboli, sepsis and cardiac surgery could result in myocardial damage and increased troponin levels. Performed By: #### C BC, CMP, GFR, DIFF, MORPH #### [address] [address] .GFRon 08-23-2019 GFR Non- >60 Normal [facility] ([place]) Comment on above: Result Comment: GFR Population [...] C BC, CMP, GFR, DIFF, MORPH #### [address] [address] GFR >60 Normal Counts include 234 beds at the [facility] ([place]) Comment on above: Result Comment: GFR Population [...] C BC, CMP, GFR, DIFF, MORPH #### [address] [address] .Manual Diffon 08-23-2019 Bands 2.0 % Normal 0.0-5.0 [facility] ([place]) Comment on above: Performed By: #### C BC, CMP, GFR, DIFF, MORPH #### [address] [address] Basophil %, Manual 0.0 % Normal 0.0-2.5 [facility] ([place]) Comment on above: Performed By: #### C BC, CMP, GFR, DIFF, MORPH #### [address] [address] Basophil, Abs Manual 0.00 10 3/mcL Normal 0.00-0.27 A [facility] ([place]) Comment on above: Performed By: #### C BC, CMP, GFR, DIFF, MORPH #### [address] [address] Cells Counted 100 Normal [facility] ([place]) Comment on above: Performed By: #### C BC, CMP, GFR, DIFF, MORPH #### [address] [address] Eosinophil %, Manual 0.0 % Normal 0.0-6.0 Counts include 234 beds at the [facility] ([place]) Comment on above: Performed By: #### C BC, CMP, GFR, DIFF, MORPH #### [address] [address] Eosinophil, Abs Manual 0.00 10 3/mcL Normal 0.00-0.65 [facility] ([place]) Comment on above: Performed By: #### C BC, CMP, GFR, DIFF, MORPH #### [address] [address] Lymphocyte %, Manual 9.0 % Low 20.0-40.0 Counts include 234 beds at the [facility] ([place]) Comment on above: Performed By: #### C BC, CMP, GFR, DIFF, MORPH #### [address] [address] Lymphocyte, Abs Manual 2.18 10 3/mcL Normal 0.90-4.32 [facility] ([place]) Comment on above: Performed By: #### C BC, CMP, GFR, DIFF, MORPH #### [address] [address] Monocyte %, Manual 5.0 % Normal 2.0-13.0 [facility] ([place]) Comment on above: Performed By: #### C BC, CMP, GFR, DIFF, MORPH #### [place] [address] Monocyte, Abs Manual 1.21 10 3/mcL Normal 0.09-1.40 A [facility] ([place]) Comment on above: Performed By: #### C BC, CMP, GFR, DIFF, MORPH #### [place] [address] Neutrophil %, Manual 84.0 % High 50.0-75.0 Counts include 234 beds at the [facility] ([place]) Comment on above: Performed By: #### C BC, CMP, GFR, DIFF, MORPH #### [place] [address] Neutrophil, Abs Manual 18.41 10 3/mcL High 2.25-8.10 [facility] ([place]) Comment on above: Performed By: #### C BC, CMP, GFR, DIFF, MORPH #### [place] [address] .Morphon 08-23-2019 Platelets (Bld) [#/Vol] Normal Normal A [facility] ([place]) Comment on above: Performed By: #### C BC, CMP, GFR, DIFF, MORPH #### [place] [address] RBC morphology finding Nom (Bld) Normal Normal [facility] ([place]) Comment on above: Performed By: #### C BC, CMP, GFR, DIFF, MORPH #### [place] [address] Benji 08-23-2019 Ethanol Level <10.0 Normal [facility] ([place]) Comment on above: Performed By: #### C BC, CMP, GFR, DIFF, MORPH #### [place] [address] APTTon 08-23-2019 aPTT Coag (Bld) [Time] None Normal [facility] ([place]) Comment on above: Performed By: #### A PTT, PRO #### [address] [address] aPTT Coag (Bld) [Time] 23.8 s Low 25.0-35.0 [facility] ([place]) Comment on above: Result Comment: For Heparin anticoagulation therapy, the recommended therapeutic range is: 54-77 seconds (APTT Correlation with Anti-Xa therapeutic range of 0.3-0.7 units/ml). PLEASE REFERENCE THE PHARMACY PROTOCOL FOR DOSING. Performed By: #### A PTT, PRO #### [place] [id number] CBCon 08-23-2019 Erythrocyte distribution width (RBC) [Ratio] 14.0 % Normal 11.5-15.5 [facility] ([place]) Comment on above: Performed By: #### C BC, CMP, GFR, DIFF, MORPH #### [place] [address] Hematocrit (Bld) [Volume fraction] 29.7 % Low 34.0-46.0 [facility] ([place]) Comment on above: Performed By: #### C BC, CMP, GFR, DIFF, MORPH #### [place] [id number] Hemoglobin (Bld) [Mass/Vol] 10.3 G/dL Low 12.0-16.0 [facility] ([place]) Comment on above: Performed By: #### C BC, CMP, GFR, DIFF, MORPH #### [place] [id number] MCH (RBC) [Entitic mass] 33.9 pg High 27.0-33.0 [facility] ([place]) Comment on above: Performed By: #### C BC, CMP, GFR, DIFF, MORPH #### [place] [id number] MCHC (RBC) [Mass/Vol] 34.7 G/dL Normal 32.0-36.0 [facility] ([place]) Comment on above: Performed By: #### C BC, CMP, GFR, DIFF, MORPH #### [place] [id number] MCV (RBC) [Entitic vol] 97.7 fL Normal 80.0-99.0 A [facility] ([place]) Comment on above: Performed By: #### C BC, CMP, GFR, DIFF, MORPH #### [place] [id number] Platelet mean volume (Bld) [Entitic vol] 8.0 fL Normal 6.6-10.5 [facility] ([place]) Comment on above: Performed By: #### C BC, CMP, GFR, DIFF, MORPH #### [place] [id number] Platelets (Bld) [#/Vol] 193 10 3/mcL Normal 150-450 [facility] ([place]) Comment on above: Performed By: #### C BC, CMP, GFR, DIFF, MORPH #### [place] [id number] RBC (Bld) [#/Vol] 3.04 10 6/mcL Low 4.10-5.30 Counts include 234 beds at the [facility] ([place]) Comment on above: Performed By: #### C BC, CMP, GFR, DIFF, MORPH #### [place] [address] WBC (Bld) [#/Vol] 24.20 10 3/mcL High 4.50-10.80 [facility] ([place]) Comment on above: Performed By: #### C BC, CMP, GFR, DIFF, MORPH #### [place] [address] CMPon 08-23-2019 Albumin/Globulin [Mass ratio] 0.9 {ratio} Normal 0.9-1.6 [facility] ([place]) Comment on above: Performed By: #### C BC, CMP, GFR, DIFF, MORPH #### [place] [address] ALP [Catalytic activity/Vol] 71 U/L Normal 38-126 [facility] ([place]) Comment on above: Performed By: #### C BC, CMP, GFR, DIFF, MORPH #### [place] [address] Bili Total 1.7 mg/dL High 0.2-1.2 [facility] ([place]) Comment on above: Result Comment: Use of this assay is not recommended for patients undergoing treatment with eltrombopag due to the potential for falsely elevated results. Performed By: #### C BC, CMP, GFR, DIFF, MORPH #### [address] [address] Creatinine [Mass/Vol] 0.40 mg/dL Low 0.50-1.20 [facility] ([place]) Comment on above: Performed By: #### C BC, CMP, GFR, DIFF, MORPH #### [address] [address] Globulin (S) [Mass/Vol] 3.5 G/dL Normal 1.5-3.8 [facility] ([place]) Comment on above: Performed By: #### C BC, CMP, GFR, DIFF, MORPH #### [address] [address] Glucose [Mass/Vol] 120 mg/dL High 82-115 [facility] ([place]) Comment on above: Performed By: #### C BC, CMP, GFR, DIFF, MORPH #### [address] [address] Protein [Mass/Vol] 6.8 G/dL Normal 6.0-8.5 [facility] ([place]) Comment on above: Performed By: #### C BC, CMP, GFR, DIFF, MORPH #### [address] [address] Urea nitrogen/Creatinine [Mass ratio] 57.5 ratio High 10.0-22.0 [facility] ([place]) Comment on above: Performed By: #### C BC, CMP, GFR, DIFF, MORPH #### [address] [address] Albumin [Mass/Vol] 3.3 G/dL Normal 3.2-4.8 [facility] ([place]) Comment on above: Performed By: #### C BC, CMP, GFR, DIFF, MORPH #### [address] [address] ALT [Catalytic activity/Vol] 61 U/L High 10-49 [facility] ([place]) Comment on above: Performed By: #### C BC, CMP, GFR, DIFF, MORPH #### [address] [address] AST [Catalytic activity/Vol] 41 U/L High 8-34 [facility] ([place]) Comment on above: Performed By: #### C BC, CMP, GFR, DIFF, MORPH #### [address] [address] Calcium [Mass/Vol] 7.4 mg/dL Low 8.4-10.1 [facility] ([place]) Comment on above: Performed By: #### C BC, CMP, GFR, DIFF, MORPH #### [address] [address] Chloride [Moles/Vol] 94 mmol/L Low 98-110 Counts include 234 beds at the [facility] ([place]) Comment on above: Performed By: #### C BC, CMP, GFR, DIFF, MORPH #### [address] [address] CO2 [Moles/Vol] 27 mmol/L Normal 22-32 [facility] ([place]) Comment on above: Performed By: #### C BC, CMP, GFR, DIFF, MORPH #### [address] [address] Electrolyte Balance 9.0 mEq/L Normal 4.0-15.0 [facility] ([place]) Comment on above: Performed By: #### C BC, CMP, GFR, DIFF, MORPH #### [address] [address] Potassium [Moles/Vol] 2.9 mmol/L Low 3.5-5.0 [facility] ([place]) Comment on above: Performed By: #### C BC, CMP, GFR, DIFF, MORPH #### [address] [address] Sodium [Moles/Vol] 130 mmol/L Low 136-145 [facility] ([place]) Comment on above: Performed By: #### C BC, CMP, GFR, DIFF, MORPH #### [place] [id number] [place] [address] Urea nitrogen [Mass/Vol] 23.0 mg/dL High 8.0-22.0 [facility] ([place]) Comment on above: Performed By: #### C BC, CMP, GFR, DIFF, MORPH #### [facility] [address] [place] [address] [address] ABD/PELVIS W/ IV CONTRAST ONLYon 08-23-2019 [...] Sign Date: 08/23/2019 7:20:52 PM Ordering Provider:Bernabe Elvin [facility] CT THORAX W/ CONTRASTon 05 CT THORAX W/ CONTRAST ORIGINAL CT THORAX [...] PM Sign Date: 08/23/2019 7:09:11 PM Ordering Provider:[facility]) LIPon 08-23-2019 Lipase Level 1226 U/L High [id number] [facility]) Comment on above: Performed By: #### C BC, CMP, GFR, DIFF, MORPH #### [place] [id number] PROon 08-23-2019 INR Coag (PPP) [Relative time] 1.2 {INR} Normal [facility] ([place]) Comment on above: Result Comment: The [employer] (CHEST, 1992, 102:[id number]) recommended therapeutic range for oral anticoagulant therapy is: LOW RISK: Prophylaxis of venous thrombosis INR: 2.0-3.0 Treatment of pulmonary embolism 2.0-3.0 Prevention of systemic embolism 2.0-3.0 HIGH RISK: Mechanical prosthetic valves 2.5-3.5 Performed By: #### C BC, CMP, GFR, DIFF, MORPH #### [place] [address] PT Coag (PPP) [Time] 14.5 s Normal 9.0-14.6 Counts include 234 beds at the [facility] ([place]) Comment on above: Result Comment: Effe ctive 11/04/07, Protime results may be affected by some antibiotics (i.e. Ciprofloxacin, Azithromycin, Bactrim) which may potentiate the action of oral anticoagulants, with further increase in Protime/INR. Performed By: #### C BC, CMP, GFR, DIFF, MORPH #### [place] [address] RESPIDon 08-23-2019 Adenovirus Not Detected Normal Not Detected [facility]) Comment on above: Order Comment: Order added by [email or web address] Performed By: #### C BC, CMP, GFR, DIFF, MORPH #### [place] [address] Bordetella Parapertussis Not Detected Normal Not Detected [facility] ([place]) Comment on above: Order Comment: Order added by [email or web address] Performed By: #### C BC, CMP, GFR, DIFF, MORPH #### [place] [address] Bordetella Pertussis Not Detected Normal Not Detected [facility] ([place]) Comment on above: Order Comment: Order added by [email or web address] Performed By: #### C BC, CMP, GFR, DIFF, MORPH #### [place] [id number] Chlamydophila pneumoniae Not Detected Normal Not Detected [facility] ([place]) Comment on above: Order Comment: Order added by [email or web address] Performed By: #### C BC, CMP, GFR, DIFF, MORPH #### [place] [address] Coronavirus 229E (Not COVID-19) Not Detected Normal Not Detected [facility] ([place]) Comment on above: Order Comment: Order added by [email or web address] Performed By: #### C BC, CMP, GFR, DIFF, MORPH #### [place] [address] Coronavirus HKU1 (Not COVID-19) Not Detected Normal Not Detected [facility] ([place]) Comment on above: Order Comment: Order added by [email or web address] Performed By: #### C BC, CMP, GFR, DIFF, MORPH #### [place] [address] Coronavirus NL63 (Not COVID-19) Not Detected Normal Not Detected [facility] ([place]) Comment on above: Order Comment: Order added by [email or web address] Performed By: #### C BC, CMP, GFR, DIFF, MORPH #### [place] [address] Coronavirus OC43 (Not COVID-19) Not Detected Normal Not Detected [facility] ([place]) Comment on above: Order Comment: Order added by [email or web address] Performed By: #### C BC, CMP, GFR, DIFF, MORPH #### [address] [address] Human Metapneumovirus Not Detected Normal Not Detected [facility] ([place]) Comment on above: Order Comment: Order added by [email or web address] Performed By: #### C BC, CMP, GFR, DIFF, MORPH #### [facility] [address] [place], [place] [address] Influenza A Not Detected Normal Not Detected [facility] ([place]) Comment on above: Order Comment: Order added by [email or web address] Performed By: #### C BC, CMP, GFR, DIFF, MORPH #### [place] [address] Influenza B Not Detected Normal Not Detected [facility] ([place]) Comment on above: Order Comment: Order added by [email or web address] Performed By: #### C BC, CMP, GFR, DIFF, MORPH #### [place] [address] Mycoplasma pneumoniae Not Detected Normal Not Detected [facility] ([place]) Comment on above: Order Comment: Order added by [email or web address] Performed By: #### C BC, CMP, GFR, DIFF, MORPH #### [place] [address] Parainfluenza 1 Not Detected Normal Not Detected [facility] ([place]) Comment on above: Order Comment: Order added by [email or web address] Performed By: #### C BC, CMP, GFR, DIFF, MORPH #### [place] [address] Parainfluenza 2 Not Detected Normal Not Detected [facility] ([place]) Comment on above: Order Comment: Order added by [email or web address] Performed By: #### C BC, CMP, GFR, DIFF, MORPH #### [place] [address] Parainfluenza 3 Not Detected Normal Not Detected [facility] ([place]) Comment on above: Order Comment: Order added by [email or web address] Performed By: #### C BC, CMP, GFR, DIFF, MORPH #### [place] [address] Parainfluenza 4 Not Detected Normal Not Detected [facility] ([place]) Comment on above: Order Comment: Order added by [email or web address] Performed By: #### C BC, CMP, GFR, DIFF, MORPH #### [place] [address] Respiratory Syncytial Virus Not Detected Normal Not Detected [facility] ([place]) Comment on above: Order Comment: Order added by [email or web address] Performed By: #### C BC, CMP, GFR, DIFF, MORPH #### [place] [address] Rhinovirus/Enterovirus Not Detected Normal Not Detected [facility] ([place]) Comment on above: Order Comment: Order added by [email or web address] Performed By: #### C BC, CMP, GFR, DIFF, MORPH #### [place] [address] RFLUon 08-23-2019 RFLU . MICRO - Microbiology [...] Locations *1: This test was performed at: [facility], [address] [place] [address], [facility] ([place]) Comment on above: Performed By: #### C BC, CMP, GFR, DIFF, MORPH #### [place] [address] XR CHEST 1 VIEWon 08-23-2019 XR CHEST [...] PM Sign Date: 08/23/2019 7:23:50 PM Ordering Provider:[facility]) XR PELVIS 1 OR 2 VIEWSon XR [...] PM Sign Date: 08/23/2019 7:24:38 PM Ordering Provider:[facility] ([place]) Culture, urine Bacteria identified Cx Nom (U) Staphylococcus hominis hominis [facility] Work Phone: Bacteria identified Cx Nom (U) Escherichia coli [facility] Work Phone: Bacteria identified Cx Nom (U) Enterococcus faecalis [facility] Work Phone: Vital Signs Date Time Vital Sign Value Performing Clinician Facility 09-25-2024 15:00-0400 Body temperature 98.8 [degF] Dr. Erica Richardson DO Work Phone: [facility] 09-25-2024 15:00-0400 Diastolic blood pressure 72 mm[Hg] Dr. Erica Richardson DO Work Phone: [facility] 09-25-2024 15:00-0400 Heart rate 82 /min Dr. Erica Richardson DO Work Phone: [facility] 09-25-2024 15:00-0400 Respiratory rate 16 /min Dr. Erica Richardson DO Work Phone: [facility] 09-25-2024 15:00-0400 SaO2% (BldA) [Mass fraction] 94 % Dr. Erica Richardson DO Work Phone: [facility] 09-25-2024 15:00-0400 Systolic blood pressure 123 mm[Hg] Dr. Erica Richardson DO Work Phone: [facility] 09-25-2024 03:34-0400 Body mass index (BMI) [Ratio] 25.2 kg/m2 Dr. Erica Richardson DO Work Phone: [facility] 09-25-2024 03:34-0400 Body weight 75.[address] Erica Richardson DO Work Phone: [facility] 09-23-2024 09:30-0400 Body height 172.[address] Erica Richardson DO Work Phone: [facility] 09-22-2024 22:00-0400 Inhaled oxygen flow rate 1 L/min Dr. Erica Richardson DO Work Phone: [facility] 07-04-2024 16:37-0400 Diastolic blood pressure 81 mm[Hg] Dr. Erica Richardson DO Work Phone: [facility] 07-04-2024 16:37-0400 Heart rate 77 /min Dr. Erica Richardson DO Work Phone: [facility] 07-04-2024 16:37-0400 Respiratory rate 16 /min Dr. Erica Richardson DO Work Phone: [facility] 07-04-2024 16:37-0400 SaO2% (BldA) [Mass fraction] 96 % Dr. Erica Richardson DO Work Phone: [facility] 07-04-2024 16:37-0400 Systolic blood pressure 167 mm[Hg] Dr. Erica Richardson DO Work Phone: [facility] 07-04-2024 12:57-0400 Body height 167.[address] Erica Richardson DO Work Phone: [facility] 07-04-2024 12:57-0400 Body mass index (BMI) [Ratio] 27.3 kg/m2 Dr. Erica Richardson DO Work Phone: [facility] 07-04-2024 12:57-0400 Body temperature 98 [degF] Dr. Erica Richardson DO Work Phone: [facility] 07-04-2024 12:57-0400 Body weight 76.[address] Erica Richardson DO Work Phone: [facility] 08-20-2023 17:53-0400 Body temperature 98 [degF] Dr. Erica Richardson Work Phone: [facility] 08-20-2023 17:53-0400 Diastolic blood pressure 80 mm[Hg] Dr. Erica Richardson Work Phone: [facility] 08-20-2023 17:53-0400 Heart rate 80 /min Dr. Erica Richardson Work Phone: [facility] 08-20-2023 17:53-0400 Respiratory rate 16 /min Dr. Erica Richardson Work Phone: [facility] 08-20-2023 17:53-0400 SaO2% (BldA) [Mass fraction] 97 % Dr. Erica Richardson Work Phone: [facility] 08-20-2023 17:53-0400 Systolic blood pressure 158 mm[Hg] Dr. Erica Richardson Work Phone: [facility] 08-20-2023 12:24-0400 Body height 165.[address] Erica Richardson Work Phone: [facility] 08-20-2023 12:24-0400 Body mass index (BMI) [Ratio] 27.2 kg/m2 Dr. Erica Richardson Work Phone: [facility] 08-20-2023 12:24-0400 Body weight 74.[address] Erica Richardson Work Phone: [facility] 05-21-2023 11:05-0500 Body temperature 98.4 [degF] Dr. Erica Richardson Work Phone: [facility] 05-21-2023 11:05-0500 Diastolic blood pressure 60 mm[Hg] Dr. Erica Richardson Work Phone: [facility] 05-21-2023 11:05-0500 Heart rate 61 /min Dr. Erica Richardson Work Phone: [facility] 05-21-2023 11:05-0500 Respiratory rate 18 /min Dr. Erica Richardson Work Phone: [facility] 05-21-2023 11:05-0500 SaO2% (BldA) [Mass fraction] 94 % Dr. Erica Richardson Work Phone: [facility] 05-21-2023 11:05-0500 Systolic blood pressure 125 mm[Hg] Dr. Erica Richardson Work Phone: [facility] 05-21-2023 06:00-0500 Body mass index (BMI) [Ratio] 26.6 kg/m2 Dr. Erica Richardson Work Phone: [facility] 05-21-2023 06:00-0500 Body weight 74.[address] Erica Richardson Work Phone: [facility] 05-19-2023 09:16-0500 Inhaled oxygen concentration 2 % Dr. Erica Richardson Work Phone: [facility] 05-19-2023 08:00-0500 Inhaled oxygen flow rate 2 L/min Dr. Erica Richardson Work Phone: [facility] 05-19-2023 03:16-0500 Body height 167.[address] Erica Richardson Work Phone: [facility] 05-19-2023 02:23-0500 Body temperature 98.7 [degF] Dr. Erica Richardson Work Phone: [facility] 05-19-2023 02:23-0500 Diastolic blood pressure 57 mm[Hg] Dr. Erica Richardson Work Phone: [facility] 05-19-2023 02:23-0500 Heart rate 87 /min Dr. Erica Richardson Work Phone: [facility] 05-19-2023 02:23-0500 Respiratory rate 16 /min Dr. Erica Richardson Work Phone: [facility] 05-19-2023 02:23-0500 SaO2% (BldA) [Mass fraction] 95 % Dr. Erica Richardson Work Phone: [facility] 05-19-2023 02:23-0500 Systolic blood pressure 99 mm[Hg] Dr. Erica Richardson Work Phone: [facility] 05-19-2023 01:17-0500 Inhaled oxygen flow rate 3 L/min Dr. Erica Richardson Work Phone: [facility] 05-18-2023 23:28-0500 Body height 167.[address] Erica Richardson Work Phone: [facility] 05-18-2023 23:28-0500 Body mass index (BMI) [Ratio] 25.9 kg/m2 Dr. Erica Richardson Work Phone: [facility] 05-18-2023 23:28-0500 Body weight [address] Erica Richardson Work Phone: [facility] 11-23-2022 13:00-0400 Body temperature 97.8 [degF] Dr. Erica Richardson Work Phone: [facility] 11-23-2022 13:00-0400 Diastolic blood pressure 70 mm[Hg] Dr. Erica Richardson Work Phone: [facility] 11-23-2022 13:00-0400 Heart rate 98 /min Dr. Erica Richardson Work Phone: [facility] 11-23-2022 13:00-0400 Respiratory rate 16 /min Dr. Erica Richardson Work Phone: [facility] 11-23-2022 13:00-0400 SaO2% (BldA) [Mass fraction] 94 % Dr. Erica Richardson Work Phone: [facility] 11-23-2022 13:00-0400 Systolic blood pressure 139 mm[Hg] Dr. Erica Richardson Work Phone: [facility] 11-23-2022 06:51-0400 Inhaled oxygen flow rate 2 L/min Dr. Erica Richardson Work Phone: [facility] 11-22-2022 18:25-0400 Body height 167.[address] Erica Richardson Work Phone: [facility] 11-22-2022 18:25-0400 Body mass index (BMI) [Ratio] 24.2 kg/m2 Dr. Erica Richardson Work Phone: [facility] 11-22-2022 18:25-0400 Body weight 68.[address] Eriac Richardson Work Phone: [facility] 11-22-2022 17:49-0400 Body temperature 98 [degF] [facility] 11-22-2022 17:49-0400 Diastolic blood pressure 79 mm[Hg] [facility] 11-22-2022 17:49-0400 Heart rate 72 /min [facility] 11-22-2022 17:49-0400 Respiratory rate 18 /min [facility] 11-22-2022 17:49-0400 SaO2% (BldA) [Mass fraction] 93 % [facility] 11-22-2022 17:49-0400 Systolic blood pressure 151 mm[Hg] [facility] 11-22-2022 12:42-0400 Body height 167.64 cm [facility] 11-22-2022 12:42-0400 Body mass index (BMI) [Ratio] 24.2 kg/m2 [facility] 11-22-2022 12:42-0400 Body weight 68.03 kg [facility] 11-22-2022 11:47-0400 Body temperature 99.61 [degF] [facility] RUN[employer]ITCHING MACHINE OPERATOR.ROLL EDGE MACHINE OPERATOR Work Phone: [facility] 11-22-2022 11:47-0400 Body weight 68.04 kg [facility] RUNSTITCHING MACHINE OPERATOR.ROLL EDGE MACHINE OPERATOR Work Phone: [facility] 11-22-2022 11:47-0400 Diastolic blood pressure 64 mm[Hg] Eliel Blount RUNSTITCHING MACHINE OPERATOR.ROLL EDGE MACHINE OPERATOR Work Phone: [facility] 11-22-2022 11:47-0400 Heart rate 85 /min Eliel Blount RUNSTITCHING MACHINE OPERATOR.ROLL EDGE MACHINE OPERATOR Work Phone: [facility] 11-22-2022 11:47-0400 Respiratory rate 18 /min [facility] RUNSTITCHING MACHINE OPERATOR.ROLL EDGE MACHINE OPERATOR Work Phone: [facility] 11-22-2022 11:47-0400 SaO2% (BldA) [Mass fraction] 93 % Eliel Mine RUNSTITCHING MACHINE OPERATOR.ROLL EDGE MACHINE OPERATOR Work Phone: [facility] 11-22-2022 11:47-0400 Systolic blood pressure 110 mm[Hg] Eliel Mien RUNSTITCHING MACHINE OPERATOR.ROLL EDGE MACHINE OPERATOR Work Phone: [facility] 07-02-2022 21:05-0400 Diastolic blood pressure 80 mm[Hg] Dr. Erica Richardson Work Phone: [facility] 07-02-2022 21:05-0400 Heart rate 79 /min Dr. Erica Richardson Work Phone: [facility] 07-02-2022 21:05-0400 Respiratory rate 16 /min Dr. Erica Richardson Work Phone: [facility] 07-02-2022 21:05-0400 SaO2% (BldA) [Mass fraction] 97 % Dr. Erica Richardson Work Phone: [facility] [facility] 07-[facility]2022 21:05-0400 Systolic blood pressure 130 mm[Hg] Dr. Erica Richardson Work Phone: [facility] 07-02-2022 16:14-0400 Body height 167.[address] Erica Richardson Work Phone: [facility] 07-02-2022 16:14-0400 Body mass index (BMI) [Ratio] 21.7 kg/m2 Dr. Erica Richardson Work Phone: [facility] 07-02-2022 16:14-0400 Body temperature 97.3 [degF] Dr. Erica Richardson Work Phone: [facility] 07-02-2022 16:14-0400 Body weight 61.[address] Erica Richardson Work Phone: [facility] 03-09-2022 08:51-0500 Body height 167.[address] Erica Richardson Work Phone: [facility] 01-10-2022 13:39-0400 Diastolic blood pressure 81 mm[Hg] Dr. Erica Richardson Work Phone: [facility] Work Phone: 01-10-2022 13:39-0400 Heart rate 83 /min Dr. Erica Richardson Work Phone: [facility] Work Phone: 01-10-2022 13:39-0400 Respiratory rate 19 /min Dr. Erica Richardson Work Phone: [facility] Work Phone: 01-10-2022 13:39-0400 SaO2% (BldA) [Mass fraction] 95 % Dr. Erica Richardson Work Phone: [facility] Work Phone: 01-10-2022 13:39-0400 Systolic blood pressure 149 mm[Hg] Dr. Erica Richardson Work Phone: [facility] Work Phone: 01-10-2022 11:44-0400 Body height 167.[address] Erica Richardson Work Phone: [facility] Work Phone: 01-10-2022 11:44-0400 Body mass index (BMI) [Ratio] 22.7 kg/m2 Dr. Erica Richardson Work Phone: [facility] Work Phone: 01-10-2022 11:44-0400 Body temperature 98.1 [degF] Dr. Erica Richardson Work Phone: [facility] Work Phone: 01-10-2022 11:44-0400 Body weight 63.[address] Erica Richardson Work Phone: [facility] Work Phone: 01-09-2022 13:26-0400 Body height 167.6 cm All Tsang MD Work Phone: [facility] 01-09-2022 13:26-0400 Body weight 56.7 kg All Tsang MD Work Phone: [facility] 01-09-2022 13:26-0400 Diastolic blood pressure 64 mm[Hg] All Tsang MD Work Phone: [facility] 01-09-2022 13:26-0400 Heart rate 66 /min All Tsang MD Work Phone: [facility] 01-09-2022 13:26-0400 SaO2% (BldA) [Mass fraction] 97 % All Tsang MD Work Phone: [facility] 01-09-2022 13:26-0400 Systolic blood pressure 110 mm[Hg] All Tsang MD Work Phone: [facility] 11-02-2021 13:06-0400 Body height 167.6 cm Acute 359 Work Phone: [facility] 11-02-2021 13:06-0400 Body weight 63.96 kg Acute 359 Work Phone: [facility] 11-02-2021 13:06-0400 Diastolic blood pressure 74 mm[Hg] Acute 359 Work Phone: [facility] 11-02-2021 13:06-0400 Heart rate 86 /min Acute 359 Work Phone: [facility] 11-02-2021 13:06-0400 Respiratory rate 20 /min Acute 359 Work Phone: [facility] 11-02-2021 13:06-0400 SaO2% (BldA) [Mass fraction] 95 % Acute 359 Work Phone: [facility] 11-02-2021 13:06-0400 Systolic blood pressure 112 mm[Hg] Acute 359 Work Phone: [facility] 10-07-2021 01:00-0400 Diastolic blood pressure 81 mm[Hg] Dr. Eirca Richardson Work Phone: [facility] Work Phone: 10-07-2021 01:00-0400 Heart rate 85 /min Dr. Erica Richardson Work Phone: [facility] Work Phone: 10-07-2021 01:00-0400 Inhaled oxygen flow rate 2 L/min Dr. Erica Richardson Work Phone: [facility] Work Phone: 10-07-2021 01:00-0400 Respiratory rate 14 /min Dr. Erica Richardson Work Phone: [facility] Work Phone: 10-07-2021 01:00-0400 SaO2% (BldA) [Mass fraction] 100 % Dr. Erica Richardson Work Phone: [facility] Work Phone: 10-07-2021 01:00-0400 Systolic blood pressure 138 mm[Hg] Dr. Erica Richardson Work Phone: [facility] Work Phone: 10-06-2021 21:19-0400 Body height 167.[address] Erica Richardson Work Phone: [facility] Work Phone: 10-06-2021 21:19-0400 Body mass index (BMI) [Ratio] 20.9 kg/m2 Dr. Erica Richardson Work Phone: [facility] Work Phone: 10-06-2021 21:19-0400 Body temperature 96.9 [degF] Dr. Erica Richardson Work Phone: [facility] Work Phone: 10-06-2021 21:19-0400 Body weight 58.[address] Erica Richardson Work Phone: [facility] Work Phone: 08-07-2021 10:54-0400 Body mass index (BMI) [Ratio] 22.9 kg/m2 Dr. Erica Richardson Work Phone: [facility] Work Phone: 08-07-2021 10:54-0400 Body temperature 97.3 [degF] Dr. Erica Richardson Work Phone: [facility] Work Phone: 08-07-2021 10:54-0400 Body weight 62.[address] Erica Richardson Work Phone: [facility] Work Phone: 08-07-2021 10:54-0400 Diastolic blood pressure 76 mm[Hg] Dr. Erica Richardson Work Phone: [facility] Work Phone: 08-07-2021 10:54-0400 Heart rate 91 /min Dr. Erica Richardson Work Phone: [facility] Work Phone: 08-07-2021 10:54-0400 Respiratory rate 18 /min Dr. Erica Richardson Work Phone: [facility] Work Phone: 08-07-2021 10:54-0400 SaO2% (BldA) [Mass fraction] 97 % Dr. Erica Richardson Work Phone: [facility] Work Phone: 08-07-2021 10:54-0400 Systolic blood pressure 120 mm[Hg] Dr. Erica Richardson Work Phone: [facility] Work Phone: 08-07-2021 10:54-0400 Body height 165.[address] Erica Richardson Work Phone: [facility] Work Phone: 08-07-2021 10:54-0400 Body mass index (BMI) [Ratio] 22.9 kg/m2 Dr. Erica Richardson Work Phone: [facility] Work Phone: 08-07-2021 10:54-0400 Body temperature 97.3 [degF] Dr. Erica Richardson Work Phone: [facility] Work Phone: 08-07-2021 10:54-0400 Body weight 62.[address] Erica Richardson Work Phone: [facility] Work Phone: 08-07-2021 10:54-0400 Diastolic blood pressure 76 mm[Hg] Dr. Erica Richardson Work Phone: [facility] Work Phone: 08-07-2021 10:54-0400 Heart rate 91 /min Dr. Erica Richardson Work Phone: [facility] Work Phone: 08-07-2021 10:54-0400 Respiratory rate 18 /min Dr. Erica Richardson Work Phone: [facility] Work Phone: 08-07-2021 10:54-0400 SaO2% (BldA) [Mass fraction] 97 % Dr. Erica Richardson Work Phone: [facility] Work Phone: 08-07-2021 10:54-0400 Systolic blood pressure 120 mm[Hg] Dr. Erica Richardson Work Phone: [facility] Work Phone: 07-12-2021 11:59-0400 Body temperature 100.29 [degF] Nicho Johnson MD Work Phone: [facility] 07-12-2021 11:59-0400 Body weight 60.6 kg Nicho Johnson MD Work Phone: [facility] 07-12-2021 11:59-0400 Diastolic blood pressure 92 mm[Hg] Nicho Johnson MD Work Phone: [facility] 07-12-2021 11:59-0400 Heart rate 97 /min Nicho Johnson MD Work Phone: [facility] 07-12-2021 11:59-0400 Respiratory rate 21 /min Nicho Johnson MD Work Phone: [facility] 07-12-2021 11:59-0400 SaO2% (BldA) [Mass fraction] 98 % Nicho Johnson MD Work Phone: [facility] 07-12-2021 11:59-0400 Systolic blood pressure 152 mm[Hg] Nicho Johnson MD Work Phone: [facility] 06-11-2021 15:56-0500 Diastolic blood pressure 83 mm[Hg] Dr. Erica Richardson Work Phone: [facility] Work Phone: 06-11-2021 15:56-0500 Heart rate 89 /min Dr. Erica Richardson Work Phone: [facility] Work Phone: 06-11-2021 15:56-0500 Respiratory rate 16 /min Dr. Erica Richardson Work Phone: [facility] Work Phone: 06-11-2021 15:56-0500 SaO2% (BldA) [Mass fraction] 97 % Dr. Erica Richardson Work Phone: [facility] Work Phone: 06-11-2021 15:56-0500 Systolic blood pressure 149 mm[Hg] Dr. Erica Richardson Work Phone: [facility] Work Phone: 06-11-2021 14:56-0500 Diastolic blood pressure 83 mm[Hg] Dr. Erica Richardson Work Phone: [facility] Work Phone: 06-11-2021 14:56-0500 Heart rate 89 /min Dr. Erica Richardson Work Phone: [facility] Work Phone: 06-11-2021 14:56-0500 Respiratory rate 16 /min Dr. Erica Richardson Work Phone: [facility] Work Phone: 06-11-2021 14:56-0500 SaO2% (BldA) [Mass fraction] 97 % Dr. Erica Richardson Work Phone: [facility] Work Phone: 06-11-2021 14:56-0500 Systolic blood pressure 149 mm[Hg] Dr. Erica Richardson Work Phone: [facility] Work Phone: 06-11-2021 11:01-0500 Body mass index (BMI) [Ratio] 23.5 kg/m2 Dr. Erica Richardson Work Phone: [facility] Work Phone: 06-11-2021 11:01-0500 Body temperature 98.3 [degF] Dr. Erica Richardson Work Phone: [facility] Work Phone: 06-11-2021 11:01-0500 Body weight 62.[address] Erica Richardson Work Phone: [facility] Work Phone: 06-11-2021 10:01-0500 Body mass index (BMI) [Ratio] 23.5 kg/m2 Dr. Erica Richardson Work Phone: [facility] Work Phone: 06-11-2021 10:01-0500 Body temperature 98.3 [degF] Dr. Erica Richardson Work Phone: [facility] Work Phone: 06-11-2021 10:01-0500 Body weight 62.[address] Erica Richardson Work Phone: [facility] Work Phone: 05-21-2021 13:39-0500 Body mass index (BMI) [Ratio] 23.7 kg/m2 Dr. Erica Richardson Work Phone: [facility] Work Phone: 05-21-2021 13:39-0500 Body temperature 98 [degF] Dr. Erica Richardson Work Phone: [facility] Work Phone: 05-21-2021 13:39-0500 Body weight 66.[address] Erica Richardson Work Phone: [facility] Work Phone: 05-21-2021 13:39-0500 Diastolic blood pressure 69 mm[Hg] Dr. Erica Richardson Work Phone: [facility] Work Phone: 05-21-2021 13:39-0500 Heart rate 87 /min Dr. Erica Richardson Work Phone: [facility] Work Phone: 05-21-2021 13:39-0500 Respiratory rate 18 /min Dr. Erica Richardson Work Phone: [facility] Work Phone: 05-21-2021 13:39-0500 SaO2% (BldA) [Mass fraction] 100 % Dr. Erica Richardson Work Phone: [facility] Work Phone: 05-21-2021 13:39-0500 Systolic blood pressure 150 mm[Hg] Dr. Erica Richardson Work Phone: [facility] Work Phone: 04-17-2020 11:00-0500 BP Diastolic 91 mm[facility]Hg[facility] [place] [facility] [place] [facility]-17-[facility] 11:00-0500 BP Systolic 158 mm[Hg] [facility] [place] 04-17-2020 11:00-0500 Pulse (Heart Rate) 87 /min [facility] [place] 04-17-2020 11:00-0500 Pulse Oximetry 95 % [facility] [place] 04-17-2020 11:00-0500 Respiratory Rate 18 /min [facility] [place] 04-17-2020 08:00-0500 Body Temperature 98.4 [degF] Solomon [facility], [place] Encounters Encounter Date Encounter Type Care Provider Facility Start: 09-25-2024 Non-patient / Non-visit Dr. Froy Talavera [facility] Work Phone: Start: 09-24-2024 Non-patient / Non-visit Dr. Froy Talavera [facility] Work Phone: Start: 09-23-2024 Non-patient / Non-visit Dr. Froy Talavera [facility] Work Phone: Start: 09-22-2024 ambulatory [facility] [place] Start: 09-22-2024 End: 09-25-2024 Evaluation and management of inpatient [facility] Facility:[facility] Start: 09-11-2024 End: 09-11-[address] Erica Richardson DO Work Phone: [facility] Work Phone: Start: 09-11-2024 End: 09-11-[address] Erica Richardson DO -[facility] Work Phone: Start: 09-11-2024 End: 09-11-2024 ambulatory Erica Richardson Facility:[facility] Start: 08-21-2024 End: 08-21-[address] Erica Richardson DO Work Phone: [facility] Work Phone: Start: 08-21-2024 End: 08-21-[address] Erica Richardson DO -[facility] Start: 08-21-2024 End: 08-21-2024 [facility] Start: 08-05-2024 End: 08-05-[address] Erica Richardson DO -Laboratory, Specimen Work Phone: Start: 08-05-2024 End: 08-05-2024 ambulatory Ericashiva Richardson Facility:[facility] Start: 07-04-2024 End: 07-04-2024 Emergency department patient visit Dr. Erica Richardson DO Work Phone: -Emergency Department Work Phone: Start: 06-04-2024 End: 06-04-[address] Erica Richardson DO -Radiology, [place] Work Phone: Start: 06-04-2024 End: 06-04-2024 ambulatory Ericashiva Richardson Facility:[facility] Start: 05-27-2024 End: 05-27-[address] Erica Richardson DO -Laboratory, [facility] Start: 05-27-2024 End: 05-27-2024 ambulatory Erica Richardson Facility:[facility] Start: 04-24-2024 End: 04-24-[address] Erica Richardson DO -Laboratory, Specimen Work Phone: Start: 04-24-2024 End: 04-24-2024 ambulatory Erica Richardson Facility:[facility] Start: 03-02-2024 End: 03-02-2024 Emergency department patient visit Cheikh Ybarra Facility:[facility] Start: 12-18-2023 End: 12-18-2023 Emergency department patient visit Erica Richardson Facility:[facility] Start: 12-12-2023 End: 12-12-2023 [facility] Start: 11-04-2023 End: 11-04-2023 ambulatory [facility] Work Phone: Hematology/Oncology Comment on above: History of breast ca ncer (Primary Dx) Start: 10-10-2023 End: 10-10-2023 ambulatory Erica Richardson Facility:[facility] Start: 08-20-2023 End: 08-20-2023 Emergency department patient visit Dr. Erica Richardson Work Phone: [facility]-Emergency Department Work Phone: Start: 08-05-2023 End: 08-05-2023 ambulatory [facility] Work Phone: Hematology/Oncology Comment on above: History of breast ca ncer (Primary Dx) Start: 05-21-2023 Non-patient / Non-visit Dr. Anny Richardson Work Phone: [facility] Work Phone: Start: 05-20-2023 Non-patient / Non-visit Dr. Anny Richardson Work Phone: [facility] Work Phone: Start: 05-19-2023 End: 05-21-2023 Evaluation and management of inpatient Dr. Erica Richardson Work Phone: [facility]-Medical Surgical 3 Work Phone: Start: 05-19-2023 Non-patient / Non-visit Dr. Anny Richardson Work Phone: [facility] Work Phone: Start: 05-09-2023 End: 05-09-2023 ambulatory ERICA A LIBORIOYS Facility:[facility] Start: 04-02-2023 End: 04-02-2023 ambulatory ERICA A MALHATTIE Facility:[facility] Start: 11-23-2022 Telephone encounter Wu rico APRN.CNP Work Phone: [facility] Comment on above: Results Start: 11-22-2022 Non-patient / Non-visit Dr. Anny Richardson Work Phone: [facility] Work Phone: Start: 11-22-2022 End: 11-23-2022 Evaluation and management of inpatient [facility] Work Phone: Start: 11-22-2022 End: 11-23-[address] Erica Richardson Work Phone: [facility] Work Phone: Start: 11-22-2022 End: 11-22-2022 Subsequent hospital visit by physician X[facility] Work Phone: Radiology Comment on above: Acute cough [R05.1] Start: 11-22-2022 End: 11-22-2022 ambulatory ERICA RICHARDSON Facility:[facility] Start: 11-22-2022 End: 11-22-2022 Patient encounter procedure Eliel Blount APRN.[employer] MACHINE OPERATOR Work Phone: [facility] Comment on above: Acute cough (Primary Dx); SOB (shortness of breath); Suspected COVID-19 virus infection Start: 11-14-2022 End: 11-14-2022 Patient encounter procedure [facility] Start: 09-13-2022 End: 09-13-[address] Erica Richardson Work Phone: [facility] Work Phone: Start: 09-13-2022 End: 09-13-[address] Erica Richardson Work Phone: [facility] [employer] [facility] Start: 08-10-2022 End: 08-10-2022 ambulatory [facility] Work Phone: Hematology/Oncology Comment on above: Malignant neoplasm o f left breast in female, estrogen receptor positive, unspecified site of breast (HCC) (Primary Dx) Start: 07-13-2022 End: 07-13-2022 ambulatory [facility] Work Phone: Hematology/Oncology Comment on above: Malignant neoplasm o f left breast in female, estrogen receptor positive, unspecified site of breast (HCC) (Primary Dx) Start: 07-02-2022 End: 07-02-2022 Emergency department patient visit Dr. Erica Richardson Work Phone: [facility]-Emergency Department Start: 06-26-2022 End: 06-26-[address] Erica Richardson Work Phone: [facility] Work Phone: Start: 06-26-2022 End: 06-26-[address] Erica Richardson Work Phone: [facility] Start: 06-15-2022 End: 06-15-2022 ambulatory [facility] Work Phone: Hematology/Oncology Comment on above: Malignant neoplasm o f left breast in female, estrogen receptor positive, unspecified site of breast (HCC) (Primary Dx) Start: 06-07-2022 Non-patient / Non-visit Dr. Anny Richardson Work Phone: [facility] Start: 06-07-2022 End: 06-07-[address] Erica Richardson Work Phone: [facility] Work Phone: Start: 06-07-2022 End: 06-07-[address] Erica Richardson Work Phone: [facility] Start: 04-25-2022 End: 04-25-2022 ambulatory [facility] Work Phone: Hematology/Oncology Comment on above: Malignant neoplasm o f left breast in female, estrogen receptor positive, unspecified site of breast (HCC) (Primary Dx) Start: 03-28-2022 End: 03-28-2022 ambulatory [facility] Work Phone: Hematology/Oncology Comment on above: Malignant neoplasm o f left breast in female, estrogen receptor positive, unspecified site of breast (HCC) (Primary Dx) Start: 03-06-2022 End: 03-06-[address] Erica Richardson Work Phone: [facility] Work Phone: Start: 03-06-2022 End: 03-06-[address] Erica Richardson Work Phone: [facility] Start: 03-06-[address] Erica mejia Work Phone: [facility] Start: 03-03-2022 End: 03-03-[address] Erica Richardson Work Phone: [facility] Start: 02-27-2022 End: 02-27-[address] Erica Richardson Work Phone: [facility] Work Phone: Start: 02-27-2022 End: 02-27-[address] Erica Richardson Work Phone: [facility] Start: 02-27-[address] Erica mejia Work Phone: [facility] Start: 02-20-2022 End: 02-20-[address] Erica Richardson Work Phone: [facility] Work Phone: Start: 02-20-2022 End: 02-20-[address] Erica Richardson Work Phone: [facility] Start: 02-20-2022 Registered Referred [facility] Start: 02-13-2022 End: 02-13-2022 ambulatory [facility] Work Phone: Start: 02-13-2022 End: 02-13-2022 Departed Referred [facility] Start: 02-13-[address] Erica mejia Work Phone: [facility] Start: 02-06-2022 End: 02-06-[address] Erica Richardson Work Phone: [facility] Work Phone: Start: 02-06-2022 End: 02-06-[address] Erica Richardson Work Phone: [facility] Start: 02-06-[address] Erica mejia Work Phone: [facility] Start: 01-30-2022 End: 01-30-[address] Erica Richardson Work Phone: [facility] Work Phone: Start: 01-30-2022 End: 01-30-[address] Erica Richardson Work Phone: [facility] Start: 01-30-[address] Erica mejia Work Phone: [facility] Start: 01-22-2022 End: 01-22-[address] Erica Richardson Work Phone: [facility] Work Phone: Start: 01-22-2022 End: 01-22-[address] Erica Richardson Work Phone: [facility] Start: 01-22-[address] Erica mejia Work Phone: [facility] Start: 01-16-2022 End: 01-16-[address] Erica Richardson Work Phone: [facility] Work Phone: Start: 01-16-2022 End: 01-16-[address] Erica Richardson Work Phone: [facility] Start: 01-16-[address] Erica mejia Work Phone: [facility] Start: 01-10-2022 End: 01-10-2022 Emergency department patient visit Dr. Erica Richardson Work Phone: [facility]-Emergency Department Start: 01-09-2022 End: 01-09-2022 Patient encounter procedure All Tsang MD Work Phone: [facility] Comment on above: SDH (subdural hemato ma) (Primary Dx); Cerebral hemorrhage (HCC) Start: 01-09-2022 End: 01-09-2022 ambulatory ERICA RICHARDSON Facility:[facility] Start: 01-09-2022 End: 01-09-[address] Erica Richardson Work Phone: [facility] Start: 01-09-[address] Erica mejia Work Phone: [facility] Start: 01-04-2022 End: 01-04-2022 ambulatory [facility] Work Phone: Hematology/Oncology Comment on above: Malignant neoplasm o f left breast in female, estrogen receptor positive, unspecified site of breast (HCC) (Primary Dx) Start: 01-04-2022 End: 01-04-2022 Subsequent hospital visit by physician [facility] (I-Stat/1.5t) Work Phone: Radiology Comment on above: SDH (subdural hemato ma) (HCC) [S06.5X9A] Start: 01-03-2022 Telephone encounter Avni stephenson DO Work Phone: Hematology/Oncology Comment on above: Appointment Start: 01-02-2022 End: 01-02-[address] Erica Richardson Work Phone: [facility] Work Phone: Start: 01-02-2022 End: 01-02-[address] Erica Richardson Work Phone: [facility] Start: 01-02-[address] Erica mejia Work Phone: [facility] Start: 12-26-2021 End: 12-26-[address] Erica Richardson Work Phone: [facility] Work Phone: Start: 12-26-2021 End: 12-26-[address] Erica iRchardson Work Phone: [facility] Start: 12-26-[address] Erica mejia Work Phone: [facility] Start: 12-20-2021 End: 12-20-[address] Erica Richardson Work Phone: [facility] Work Phone: Start: 12-20-2021 End: 12-20-[address] Erica Richardson Work Phone: [facility] Start: 12-20-[address] Erica mejia Work Phone: [facility] Start: 12-18-2021 End: 12-18-[address] Erica Richradson Work Phone: [facility] Work Phone: Start: 12-18-2021 End: 12-18-[address] Erica Richardson Work Phone: [facility] Start: 12-18-[address] Erica mejia Work Phone: [facility] Start: 12-12-2021 End: 12-12-[address] Erica Richardson Work Phone: [facility] Work Phone: Start: 12-12-2021 End: 12-12-[address] Erica Richardson Work Phone: [facility] Start: 12-12-[address] Erica mejia Work Phone: [facility] Start: 12-05-2021 End: 12-05-[address] Erica Richardson Work Phone: [facility] Work Phone: Start: 12-05-2021 End: 12-05-[address] Eric[facility] Richardson Work [facility]: [facility] [facility] Start: 12-05-[address] Erica mejia Work Phone: [facility] Start: 12-03-2021 End: 12-03-[address] Erica Richardson Work Phone: [facility] Start: 12-01-2021 End: 12-01-[address] Erica Richardson Work Phone: [facility] Work Phone: Start: 12-01-2021 End: 12-01-[address] Erica Richardson Work Phone: [facility] Start: 12-01-[address] Erica mejia Work Phone: [facility] Start: 11-28-2021 End: 11-28-[address] Erica Richardson Work Phone: [facility] Work Phone: Start: 11-28-2021 End: 11-28-[address] Erica Richardson Work Phone: [facility] Start: 11-28-[address] Erica mejia Work Phone: [facility] Start: 11-21-2021 End: 11-21-[address] Erica Richardson Work Phone: [facility] Work Phone: Start: 11-21-2021 End: 11-21-[address] Erica Richardson Work Phone: [facility] Start: 11-21-[address] Erica mejia Work Phone: [facility] Start: 11-14-2021 End: 11-14-[address] Erica Richardson Work Phone: [facility] Start: 11-14-[address] Erica mejia Work Phone: [facility] Start: 11-09-2021 End: 11-09-[address] Erica Richardson Work Phone: [facility] Start: 11-09-[address] Erica mejia Work Phone: [facility] Start: 11-07-2021 End: 11-07-[address] Erica Richardson Work Phone: [facility] Start: 11-03-2021 End: 11-03-2021 ambulatory ERICA RICHARDSON Facility:[facility] Start: 11-02-2021 End: 11-02-2021 ambulatory ERICA Shiva RICHARDSON Facility:[facility] Start: 11-02-2021 End: 11-02-2021 Nursing evaluation of patient and report [facility] Work Phone: [facility] Comment on above: Closed fracture of m ultiple ribs with flail chest with routine healing, subsequent encounter (Primary Dx) Start: 11-02-2021 End: 11-02-2021 Subsequent hospital visit by physician Xr [facility] Comment on above: Closed fracture of m ultiple ribs of left side, initial encounter [S22.42XA] Start: 10-31-2021 End: 10-31-[address] Erica Richardson Work Phone: [facility] Start: 10-31-[address] Erica mejia Work Phone: [facility] Start: 10-30-2021 End: 10-30-2021 Subsequent hospital visit by physician [facility] (I-Stat) Work Phone: Cat Scan Comment on above: SDH (subdural hemato ma) ([facility]) [S06.5X9A] Start: 10-27-2021 End: 10-27-[address] Erica Richardson Work Phone: [facility] Start: 10-25-2021 End: 10-25-[address] Erica Richardson Work Phone: [facility] Start: 10-24-2021 End: 10-24-[address] Erica Richardson Work Phone: [facility] Start: 10-24-[address] Erica mejia Work Phone: [facility] Start: 10-20-2021 Telephone encounter Sherice Conner kenzie DYER Work Phone: [facility] Comment on above: Appointment Start: 10-12-2021 Telephone encounter Eugene Santos MD Work Phone: [facility] Comment on above: Patient Update Start: 10-11-2021 Orders Only Yolie braswell PA-C Work Phone: [place] [facility] Comment on above: SDH (subdural hemato ma) (HCC) (Primary Dx) Start: 10-07-2021 End: 10-17-2021 Evaluation and management of inpatient ERICA RICHARDSON Facility:[facility] Start: 10-06-2021 End: 10-07-2021 Emergency department patient visit Dr. Erica Richardson Work Phone: [facility]-Emergency Department Start: 10-03-2021 End: 10-03-2021 ambulatory Lab/Port [facility] Work Phone: Hematology/Oncology Comment on above: Malignant neoplasm o f left breast in female, estrogen receptor positive, unspecified site of breast (HCC) (Primary Dx) Start: 08-29-2021 End: 08-29-2021 ambulatory Lab/[facility] Work Phone: Hematology/Oncology Comment on above: Malignant neoplasm o f left breast in female, estrogen receptor positive, unspecified site of breast (HCC) (Primary Dx) Start: 08-10-2021 End: 08-10-[address] Erica Richardson Work Phone: [facility]-Outpatient Bone Densitometry Start: 08-07-2021 End: 08-07-[address] Erica Richardson Work Phone: [facility] Start: 08-01-2021 End: 08-01-2021 ambulatory Lab/[facility] Work Phone: Hematology/Oncology Comment on above: Malignant neoplasm o f left breast in female, estrogen receptor positive, unspecified site of breast (HCC) (Primary Dx) Start: 07-28-2021 End: 07-28-[address] Erica Richardson Work Phone: [facility]-Medical Out Start: 07-12-2021 End: 07-12-2021 Patient encounter procedure Nicho Johnson MD Work Phone: [facility] Comment on above: Otalgia, right (Prim neel Dx); Vertigo; URI, acute Start: 06-11-2021 End: 06-11-2021 Emergency department patient visit Dr. Erica Richardson Work Phone: [facility]Emergency Department Start: 05-21-2021 End: 05-21-2021 Emergency department patient visit Dr. Erica Richardson Work Phone: [facility]Emergency [facility] Start: 03-17-2021 End: 03-17-2021 Subsequent hospital visit by physician Xr [facility] Work Phone: Radiology Comment on above: Injury of left upper arm, subsequent encounter [S49.92XD] Start: 04-16-2020 End: 04-17-2020 Evaluation and management of inpatient Solomon R Coby Work Phone: [facility] ICU T2 Comment on above: Traumatic subdural h ematoma with loss of consciousness of 30 minutes or less, subsequent encounter (Primary Dx) Start: 06-13-2018 ambulatory UNKNOWN PROVIDER [facility] Procedures Date Procedure Procedure Detail Performing Clinician Start: 09-23-[address] Erica Richardson DO Work Phone: Start: 09-22-2024 Urnls dip stick/tabl et reagent auto microscopy Dr. Erica Richardson DO Work Phone: Start: 09-22-2024 Plain chest X-ray Dr. Josh Richardson DO Work Phone: Start: 09-22-2024 CT of head without contrast Dr. Erica Richardson DO Work Phone: Start: 09-22-2024 SARS-CoV-2, Influenz a & RSV (PCR) Dr. Erica Richardson DO Work Phone: Start: 09-11-[address] Erica Richardson [...] exam ches t 2 views Eliel Blount RUNSTITCHING MACHINE OPERATOR.ROLL EDGE MACHINE OPERATOR Work Phone: Start: 07-02-2022 CT cervical spine [...] brain brain stem w/o w/contrast material Sherice Connerkenzie RUNSTITCHING MACHINE OPERATOR.ROLL EDGE MACHINE OPERATOR Work Phone: Start: 11-02-2021 Radiologic exam ches t 2 views Boaz Grimaldo PA-C Work Phone: Start: 10-30-2021 Ct head/brain w/o co ntrast material Yolie Lowe PA-C Work Phone: Start: 10-09-2021 Antibody screen ERICA BLACK Comment on above: Order Comment: Speci men Type: BLOOD SPECIMENOrdering Facility: [facility] Address: [address] [place] [address] Performed By: #### T SCR ####[facility] BLOOD BANKCLIA [id number] [address] Start: 10-07-2021 Antibody screen ERICA BLACK Comment on above: Order Comment: Speci men Type: BLOOD SPECIMENOrdering Facility: [facility] Address: [address] [place] [address] Performed By: #### T SCR ####[facility] BLOOD BANKCLIA [id number] [address] Start: 10-07-2021 Plain chest X-ray Dr. [...] Erica Richardson Work Phone: Start: 03-17-2021 Radex humerus minimu m 2 views Earline Amaury RUNSTITCHING MACHINE OPERATOR.ROLL EDGE MACHINE OPERATOR Work Phone: Start: 12-08-2020 Adult depression scr eening assessment Nicho Johnson MD Work Phone: Start: 12-05-2020 Mammography Nicho jovel MD Work Phone: Start: 04-17-2020 ADD ON LAB TEST Kailee Mckeon Work Phone: Start: 04-17-2020 Ct head/brain w/o [...] Phone: Start: 04-16-2020 Assay of lactate Catalino Ley Work Phone: Start: 04-16-2020 BASIC METABOLIC PANE L W/ REFLEX TO MG FOR LOW K Catalino Shannon Jorge A Work Phone: Start: 04-16-2020 Blood count complete auto&auto difrntl wbc Catalino Ley Work Phone: Start: 04-16-2020 Drug screen class list a Catalino Shannon Jorge A Work Phone: Start: 04-16-2020 Ecg routine ecg w/le ast 12 lds w/i&r Catalino Shiva Ley Work Phone: Urine culture Dr. Erica Richardson Work Phone: Plan of Treatment Date Care Activity Detail Author Start: 06-16-2029 Urine microalbumin profile DTaP,Tdap,Td Vaccine (2 - Td or Tdap) [facility] Start: 10-17-2024 DIABETES SCREEN [facility] Start: 10-17-2024 Diabetes Screening Diabetes Screenin g [facility] Start: 10-12-2024 DIABETES SCREEN DIABETES SCREEN [facility] Start: 10-11-2024 DIABETES SCREEN [facility] Start: 09-25-2024 Patient discharge [facility] Start: 09-23-2024 Following clinical pathway protocol [facility] Start: 09-23-2024 Patient referral to dietitian [facility] Start: 09-22-2024 Aspiration precautions [facility] Start: 09-22-2024 Assessment of risk o f venous thromboembolism [facility] Start: 09-22-2024 Fall prevention [facility] Start: 09-22-2024 Insertion of cathete r into peripheral vein [facility] Start: 09-22-2024 Introduction of urin neel catheter [facility] Start: 09-22-2024 Measuring intake and output [facility] Start: 09-22-2024 Providing care accor ding to standard [facility] Start: 09-22-2024 Provision of activit y privileges [facility] Start: 09-22-2024 Referral to occupati onal therapist [facility] Start: 09-22-2024 Referral to service [facility] Start: 09-22-[address] [facility] Start: 09-22-2024 Admission procedure [facility] Start: 09-22-[address] [facility] Start: 09-22-2024 Urine culture Urine Culture [facility] Start: 07-04-[address] [facility] Start: 07-04-2024 Venous catheter care management [facility] Start: 02-03-2024 End: 02-03-2024 ambulatory 02/03/2024 2:30 PM EDT Infusion Center Hematology/Oncology [address] [place] [address] Wstr, Lab/Port [facility] [address] [place] [address] Q3MO PORT FLUSH* Hematology/Oncology Comment on above: Q3MO PORT FLUSH* Start: 12-22-2023 Covid-19 Vaccine ( season) Covid-19 Vaccine ( season) [facility] Start: 12-22-2023 Covid-19 Vaccine ( season) Covid-19 Vaccine ( season) [facility] Start: 12-22-2023 Influenza vaccination C [facility] Start: 11-23-2023 BP CONTROLLED (<130/80) BP CONTROLLE D (<130/80) [facility] Start: 08-20-[address] [facility] Start: 05-21-2023 Patient discharge [facility] Start: 05-21-2023 Removal of urinary catheter [facility] Start: 05-21-2023 Urinary bladder resi dual urine study [facility] Start: 05-19-2023 Aspiration precautions [facility] Start: 05-19-2023 Assessment of risk o f venous thromboembolism [facility] Start: 05-19-2023 Fall prevention [facility] Start: 05-19-2023 Inhalation therapy procedure [facility] Start: 05-19-2023 Insertion of cathete r into peripheral vein [facility] Start: 05-19-2023 Introduction of urin neel catheter [facility] Start: 05-19-2023 Measuring intake and output [facility] Start: 05-19-2023 Oxygen therapy [facility] Start: 05-19-2023 Providing care accor ding to standard [facility] Start: 05-19-2023 Provision of activit y privileges [facility] Start: 05-19-2023 Referral to occupati onal therapist [facility] Start: 05-19-2023 Referral to service [facility] Start: 05-19-2023 Speech therapy assessment [facility] Start: 05-19-[address] [facility] Start: 05-19-2023 Following clinical pathway protocol [facility] Start: 05-19-2023 Hospital admission, emergency, from emergency room, medical nature [facility] Start: 05-19-2023 Legionella pneumophi la Ag [Presence] in Urine [facility] Start: 05-19-2023 Streptococcus pneumo niae antigen assay [facility] Start: 05-19-2023 Verification routine [facility] Start: 05-19-2023 Admission procedure [facility] Start: 05-18-2023 End: 05-19-2023 Blood culture [facility] Start: 05-18-2023 Partial thromboplast in time, activated [facility] Start: 05-18-2023 Prothrombin time [facility] Start: 05-18-2023 End: 05-18-2023 [facility] Start: 05-18-2023 Bacteria identified in Blood by Culture Blood Culture [facility] Start: 05-18-2023 Bacteria identified in Urine by Culture [facility] Start: 04-22-2023 Advance Directive Discussion Advance Directive Discussion [facility] Start: 04-22-2023 Behavioral Health Screening Behavioral Health Screening [facility] Start: 01-09-2023 BP CONTROLLED (<130/80) BP CONTROLLE D (<130/80) [facility] Start: 12-21-2022 Covid-19 Vaccine ( season) Covid-19 Vaccine ( season) [facility] Start: 12-21-2022 Influenza vaccination C [facility] Start: 11-23-2022 Patient discharge [facility] Start: 11-23-2022 Venous catheter care management [facility] Start: 11-23-2022 Respiratory secretio n precautions [facility] Start: 11-22-2022 Physiotherapy of chest [facility] Start: 11-22-2022 Ambulation without limitation [facility] Start: 11-22-2022 Assessment of risk o f venous thromboembolism [facility] Start: 11-22-2022 Incentive spirometry [facility] Start: 11-22-2022 Insertion of cathete r into peripheral vein [facility] Start: 11-22-2022 Measuring intake and output [facility] Start: 11-22-2022 Oxygen therapy [facility] Start: 11-22-2022 Providing care accor ding to standard [facility] Start: 11-22-2022 Referral to occupati onal therapist [facility] Start: 11-22-2022 Referral to service [facility] Start: 11-22-[address] [facility] Start: 11-22-2022 Following clinical pathway protocol [facility] Start: 11-22-2022 Admission procedure [facility] Start: 11-22-2022 Verification routine [facility] Start: 11-22-[address] [facility] Start: 11-22-2022 Inhalation therapy procedure [facility] Start: 11-03-2022 BP CONTROLLED (<130/80) BP CONTROLLE D (<130/80) [facility] Start: 11-02-2022 BP CONTROLLED (<130/80) BP CONTROLLE D (<130/80) [facility] Start: 10-07-2022 Influenza vaccination LUNG CANCER SC REENING [facility] Start: 10-07-2022 Screening for malign ant neoplasm of lung Lung Cancer Screening [facility] Start: 10-05-2022 DIABETES SCREEN DIABETES SCREEN [facility] Start: 07-02-2022 Simple repair f/e/e/ n/l/m 2.6cm-5.0 cm RPR F/E/E/N/L/M 2.6-5.0 CM [facility] Start: 04-22-2022 ADVANCE DIRECTIVE DISCUSSION ADVANCE DIRECTIVE DISCUSSION [facility] Start: 04-22-2022 DEPRESSION ASSESSMENT DEPRESSION ASS ESSMENT [facility] Start: 02-02-2022 End: 12-02-2022 Radiologic exam chest 2 views XR CHEST 2V FRONTAL/LAT Radiology Routine Closed fracture of multiple ribs with flail chest with routine healing, subsequent encounter Expected: 02/02/2022, Expires: 12/02/2022 [facility] Work Phone: Comment on above: Expected: 02/02/2022 , Expires: 12/02/2022 Start: 01-10-2022 Simple repair scalp/neck/ax/genit/trunk 2.5cm/< RPR S/N/AX/GEN/TRNK 2.5CM/< [facility] Work Phone: Start: 12-21-2021 Influenza vaccination INFLUENZA (#1) [facility] Start: 12-08-2021 Adult depression screening assessment DEPRESSION SCREENING [facility] Start: 12-05-2021 Mammography MAMMOGRAM [facility] Start: 2021 RSV Vaccine (1 - 1-d ose 75+ series) RSV Vaccine (1 - 1-dose 75+ series) [facility] Start: 10-25-2021 End: 11-10-2022 Ct head/brain w/o contrast material CT BRAIN WO IVCON Radiology Routine SDH (subdural hematoma) (HCC) Expected: 10/25/2021, Expires: 11/10/2022 [facility] Work Phone: Comment on above: Expected: 10/25/2021 , Expires: 11/10/2022 Start: 10-07-2021 Plain chest X-ray Chest 1 View (Port able) [facility] Work Phone: Start: 10-07-2021 XR Chest Single view [facility] Work Phone: Start: 10-06-2021 Perq drainage pleura insert cath w/o imaging INSERT CATH PLEURA W/O IMAGE [facility] Work Phone: Start: 04-22-2021 ADVANCE DIRECTIVE DISCUSSION ADVANCE DIRECTIVE DISCUSSION [facility] Start: 04-22-2021 DEPRESSION ASSESSMENT DEPRESSION ASS ESSMENT [facility] Start: 12-21-2020 COVID-19 VACCINE (3 - Booster for Moderna series) COVID-19 VACCINE (3 - Booster for Moderna series) [facility] Start: 10-05-2020 Influenza vaccination LUNG CANCER SC REENING [facility] Start: 09-15-2020 COVID-19 VACCINE (3 - Booster for Moderna series) COVID-19 VACCINE (3 - Booster for Moderna series) [facility] Start: 09-15-2020 COVID-19 VACCINE (3 - Moderna series) COVID-19 VACCINE (3 - Moderna series) [facility] Start: 05-09-2020 End: 04-17-2021 CT Head WO Contrast CT Head WO Contrast Imaging Routine Traumatic subdural hematoma with loss of consciousness of 30 minutes or less, subsequent encounter Expected: 05/09/2020 (Approximate), Expires: 04/17/2021 [facility] [place] Comment on above: Expected: 05/09/2020 (Approximate), Expires: 04/17/2021 Start: 11-07-2011 Pneumococcal Vaccine : 65+ (1 of 1 - PCV) Pneumococcal Vaccine: 65+ (1 of 1 - PCV) [facility] Start: 11-07-2011 PNEUMOCOCCAL: 65+ (1 - PCV) PNEUMOCOCCAL: 65+ (1 - PCV) [facility] Start: 11-07-2011 PNEUMOVAX AGE 65 AND OVER WITH 5YR LOOKBACK (#1) PNEUMOVAX AGE 65 AND OVER WITH 5YR LOOKBACK (#1) [facility] Start: 2006 RSV Vaccine (1 - 1-d ose 60+ series) RSV Vaccine (1 - 1-dose 60+ series) [facility] Start: 1996 SHINGRIX VACCINE (1 of 2) VEGA GRIX VACCINE (1 of 2) [facility] Start: 11-07-1991 COLOGUARD (FIT-DNA) COLOGUARD (FIT-D NA) [facility] Start: 11-07-1991 Colonoscopy COLONOSCOPY [facility] Start: 11-07-1991 COLORECTAL CANCER SCREENING COLORECTAL CANCER SCREENING [facility] Start: 11-07-[address] COLONOGRAPHY [facility] Start: 11-07-1991 FECAL OCCULT BLOOD FECAL OCCULT BLOO D [facility] Start: 11-07-1991 LIPID SCREEN LIPID SCREEN [facility] Start: 11-07-1991 [facility] Start: 1965 SHINGRIX VACCINE (1 of 2) VEGA GRIX VACCINE (1 of 2) [facility] Start: 1965 Urine microalbumin profile DTAP,TDAP,TD (1 - Tdap) [facility] Start: 1964 ANNUAL PCP TEAM MILLWORK ESTIMATOR ALICIA DISEASE VISIT ANNUAL PCP TEAM CHRONIC DISEASE VISIT [facility] Start: 1964 BP CONTROLLED (<130/80) BP CONTROLLE D (<130/80) [facility] Start: 1964 Depression Screening Depression Scre ening [facility] Start: 1964 HEPATITIS C SCREENING HEPATITIS C [facility] Start: 1964 Hepatitis C screening Hepatitis C [facility] Start: 1952 PNEUMOCOCCAL: 65+ (1 - PCV) PNEUMOCOCCAL: 65+ (1 - PCV) [facility] End: 04-17-2020 aPTT Coag (Bld) [Time] APTT Lab STAT One Time for 1 Occurrences starting 04/17/2020 until 04/17/2020 [facility] Comment on above: One Time for 1 Occur rences starting 04/17/2020 until 04/17/2020 aPTT in Platelet poo r plasma by Coagulation assay [facility] Bacteria identified in Sputum by Respiratory culture [facility] Basic Metabolic Pane l w/ Reflex to MG Basic Metabolic Panel w/ Reflex to MG Lab Routine Daily until discontinued starting 04/16/2020, 2 completed [facility] Comment on above: Daily until disconti nued starting 04/16/2020, 2 completed CBC auto differential CBC auto d ifferential Lab Routine Daily until discontinued starting 04/16/2020, 2 completed [facility] Comment on above: Daily until disconti nued starting 04/16/2020, 2 completed EKG 12 Lead EKG 12 Lead ECG Routine 04/16/2020 11:45 AM EST [facility] INR in Platelet poor plasma by Coagulation assay [facility] Magnesium [Mass/volu me] in Serum or Plasma [facility] Microscopic observat ion [Identifier] in Unspecified specimen by Gram stain [facility] Oxygen therapy [Mini mum Data Set] Initiate Oxygen Therapy Protocol Respiratory Care Routine Daily until discontinued starting 04/16/2020 [facility] Comment on above: Daily until disconti nued starting 04/16/2020 Patient Education [facility] Work Phone: Patient referral [facility] Work Phone: Phosphate [Mass/Vol] Phosphorus Lab Routine Daily until discontinued starting 04/17/2020, 1 completed [facility] Comment on above: Daily until disconti nued starting 04/17/2020, 1 completed Radiologic exam ches t 2 views XR CHEST 2V FRONTAL/LAT Radiology Routine Closed fracture of multiple ribs of left side, initial encounter Lung laceration, subsequent encounter 11/02/2021 12:32 PM EDT [facility] Work Phone: SARS-CoV-2 (COVID-19 ) RNA [Presence] in Respiratory specimen by LEONA with probe detection 2019 CORONAVIRUS Microbiology Routine Acute cough SOB (shortness of breath) Suspected COVID-19 virus infection 11/22/2022 12:45 PM EDT [facility] Work Phone: Serum inorganic phos phate measurement [facility] End: 04-16-2020 Speech and language therapy regime Speech language pathology evaluation [employer] Routine One Time for 1 Occurrences starting 04/16/2020 until 04/16/2020 [facility] Comment on above: One Time for 1 Occur rences starting 04/16/2020 until 04/16/2020 End: 04-18-2020 Vitamin D 25 Hydroxy Vitamin D 25 Hydroxy Lab Routine Tomorrow AM for 1 Occurrences starting 04/18/2020 until 04/18/2020 [facility] Comment on above: Tomorrow AM for 1 Oc currences starting 04/18/2020 until 04/18/2020 [facility] Immunizations Immunization Date Immunization Notes Care Provider Fa cili 12-18-2023 tetanus toxoid, reduced diphtheria toxoid, and acellular pertussis vaccine, adsorbed Dr. Erica Richardson DO Work Phone: [facility] 08-20-2023 tetanus toxoid, reduced diphtheria toxoid, and acellular pertussis vaccine, adsorbed Dr. Erica Richardson Work Phone: [facility] 03-09-2021 influenza, injectabl e, quadrivalent, preservative free Dr. Erica Richardson Work Phone: [facility] 03-09-2021 influenza, seasonal, injectable Dr. Erica Richardson Work Phone: [facility] 03-09-2021 influenza virus vaccine, unspecified formulation Lab/Port Wstr Work Phone: [facility] 07-27-2020 Covid (Moderna) Dr. Erica kuhn Work Phone: [facility] 07-21-2020 COVID-19 vaccine, fu ll dose (MODERNA) Nicho Johnson MD Work Phone: [facility] 06-29-2020 Covid (Moderna) Dr. Erica kuhn Work Phone: [facility] 06-24-2020 COVID-19 vaccine, fu ll dose (MODERNA) Nicho Johnson MD Work Phone: [facility] 02-09-[address] Erica Richardson Work Phone: [facility] 09-11-[address] Elena Richardson Work Phone: [facility] Work Phone: 09-11-2019 pneumococcal vaccine , unspecified formulation [facility] 06-16-2019 tetanus toxoid, reduced diphtheria toxoid, and acellular pertussis vaccine, adsorbed Dr. Erica Richardson Work Phone: [facility] 01-23-2019 influenza, high dose seasonal, preservative-free Nicho Johnson MD Work Phone: [facility] NEGATED: Highlighted row has not occurred!04-17-2020 tetanus and diphtheria toxoids, adsorbed, preservative free, for adult use (5 Lf of tetanus toxoid and 2 Lf of diphtheria toxoid) [place], [place] Payers Date Payer Category Payer Self-pay [id number] 2016 Unknown ARJUN DÍAZ ME DICARE SUPPLEMENT [id number] 2016-Present [id number] [place] [address] Indemnity [id number] 2016 Unknown ARJUN DÍAZ ME DICARE SUPPLEMENT [id number] 2016-Present [id number] [place] [address] Indemnity [id number] 2012 Unknown [id number] 2011 Medicare MEDICARE MEDICAR E A AND B [id number] 2011-Present [phone] [place] [address] Medicare [id number] 2011 Medicare MEDICARE MEDICAR E A AND B [id number] 2011-Present [phone] [place] [address] Medicare [id number] 2011 Medicare [id number] Unknown [id number] 2 Unknown [id number] [id number] 2 Unknown [id number] 2.16.840.1.654001.3.579.2.46 2 Unknown [id number] 2.16.840.1.636504.3.579.2.46 2 Unknown [id number] 2.16.840.1.980190.3.579.2.46 2 Unknown [id number] 2.16.840.1.724632.3.579.2.46 2 Unknown [id number] 2.16.840.1.252259.3.579.2.46 2 Unknown [id number] 2.16.840.1.988614.3.579.2.46 2 Unknown [id number] 2.16.840.1.180318.3.579.2.46 2 Unknown [id number] 2.16.840.1.630877.3.579.2.46 2 Unknown [id number] 2.16.840.1.367740.3.579.2.46 2 Unknown [id number] 2.16.840.1.957726.3.579.2.46 2 Unknown [id number] 2.16.840.1.664162.3.579.2.46 2 Unknown [id number] 2.16.840.1.240615.3.579.2.46 2 Unknown [id number] 2.16.840.1.293965.3.579.2.46 2 Unknown [id number] 2.16.840.1.278469.3.579.2.46 2 Social History Date Type Detail Facility Start: 04-17-2020 End: 09-22-2024 Tobacco smoking status NHIS Former smoker [facility] Start: 02-20-1979 End: 02-20-2019 History of tobacco use Current smoker [facility] Start: 03-29-2020 End: 04-17-2020 Cigarettes smoked current (pack per day) - Reported [facility] Start: 05-01-2019 End: 04-17-2020 Tobacco use and exposure Never used [place], [place] Start: 04-17-2020 Alcohol intake Current drinke r of alcohol (finding) [place] Start: 04-16-2020 Alcohol Comment 2-3 times a week [place], [place] Start: 1945 Sex Assigned At Not on file M [place] Start: 02-15-2021 End: 01-09-2022 Exposure to SARS-CoV-2 (event) Not sure [place], [place] Start: 02-20-1979 End: 02-20-2019 History of tobacco use Cigarette Smoker [facility] Start: 01-12-2021 End: 07-12-2021 Alcohol intake Current non-drinker of alcohol (finding) [facility] Start: 08-07-2021 End: 08-20-2023 Tobacco smoking status NHIS Unknown if ever smoked [facility] Start: 03-11-2020 [facility] Start: 03-10-2020 None [facility] Start: 03-11-2020 Alone [facility] Start: 09-01-[address] [facility] Start: 1945 Sex Assigned At Female [facility] Start: 03-29-2020 End: 11-22-2022 Tobacco use panel [facility] National Score (1-10 0), lower number is lower risk 99 [facility] Start: 07-04-2024 Sex Female (finding) [facility] Medical Equipment Procedure Code Equipment Code Equipment Origin al Text Equipment Identifier Dates Mcy-Nl-Z-Kind Implant - [id number] Start: 06-10-2015 Comment on above: Description: 3.5mm L CP plate 6 hole 85mm length [id number] PLATE Ipj-Kr-U-Kind Implant - [id number] Start: 06-10-2015 Comment on above: Description: DBX Put ty 0.5cc Screw [id number] Start: 06-13-2018 Plate Philos Standard Stainless Steel 90mm Bone 3 Hole Locking Compression - [id number] Start: 06-13-2018 Port Implantable Power Port 6fr - [id number] Start: 06-30-2012 Comment on above: Description: POWERPO RT Screw Lc-Dcp Dcp 3.5mm 6mm Full Thread Stainless Steel 14mm Bone Self Tap - [id number] Start: 06-10-2015 Screw Lcp 3.5mm Full Thread Stainless Steel 14mm Bone Stardrive Recess Self - [id number] Start: 06-10-2015 Screw Lc-Dcp Dcp 3.5mm 6mm Full Thread Stainless Steel 16mm Bone Self - [id number] Start: 06-10-2015 Screw 3.7mm T15 Full Thread Stainless Steel 36mm Bone Self Drill Cannulated - [id number] Start: 06-13-2018 Screw Lcp 3.5mm Full Thread Stainless Steel 26mm Bone Stardrive Recess Self - [id number] Start: 06-13-2018 Screw Dcp Lc-Dcp 3.5mm Stainless Steel 28mm Bone Self Tapping Hexagonal - [id number] Start: 06-13-2018 Screw 3.7mm Full Thread T15 Stainless Steel 38mm Bone Self Drill Cannulated - [id number] Start: 06-13-2018 Screw Lcp 3.5mm Stainless Steel 26mm Bone Self Tapping Small Fragment - [id number] Start: 06-13-2018 Screw 3.7mm T15 Full Thread Stainless Steel 50mm Bone Self Drill Cannulated - [id number] Start: 06-13-2018 Screw 3.7mm T15 Full Thread Stainless Steel 40mm Bone Self Drill Cannulated - [id number] Start: 06-13-2018 Plate Straight Eight Hole [id number] Start: 10-09-2021 Plate Pre-Contou red Sixteen Hole [id number] Start: 10-09-2021 Screw Locking Self-Drilling 2.4mm X 8mm [id number] Start: 10-09-2021 Cap Locking Larg e Bone Screw 323.1205 [id number] Start: 10-09-2021 Washer 9.5mm 323.1290 [id number] Start: 10-09-2021 Advatagerib Shor t Bridge 60mm W/23mm Locking Posts [id number] Start: 10-09-2021 2.7mm X 8mm Resc ue Locking Screw - [id number] Start: 10-09-2021 Goals Date Patient Goal Desired Activity /State Functional Status Date Assessment Result Facility 09-25-2024 Functional status Ambulates [facility] Work Phone: 05-21-2023 Functional status Ambulates [facility] Work Phone: 11-23-2022 Functional status Ambulates;Bathroom Priv ilege [facility] Work Phone: Mental Status Date Assessment Result Facility 09-25-2024 Cognitive function Voice/Name [facility] Work Phone: 07-04-2024 Cognitive function Level Of Cons ciousness Awake;Alert;Appropriate [facility] Work Phone: 05-21-2023 Cognitive function Voice/Name [facility] Work Phone: 05-18-2023 Cognitive function Voice/Name [facility] Work Phone: 11-23-2022 Cognitive function Cooperative;Talkative [facility] Work Phone: 06-11-2021 Cognitive function Level Of Cons ciousness Awake;Alert;Appropriate;Follow s Commands [facility] Work Phone: Clinical Notes 07-17-2012 to 09-25-2024 Note Date & Type Note Facility 09-25-2024 Discharge summary Note Date/Time September 25, 2024 10:34am [facility] Medical Records Department [address] [place] [address] Discharge Summary 09/25/24 1032 MR#: [id number] Acct: [id number] Name: AIDEN FIELDS #:[id number] : 1945 78 From: Froy Velázquez DO PCP: Dr. Erica Richardson DO Status:ADM [facility] Providers Date of Admission: 09/22/24 Primary Care Physician: Dr. Erica Richardson DO Reason For Visit: ADULT FTT, UTI, MILD RHABDO Diagnosis Discharge Diagnosis (1) UTI (urinary tract infection): Status: Acute Code(s): N39.0 - Urinary tract infection, site not specified Plan: On CTX, but the Citrobacter freundii is resistant, will change to meropenem. Will need PICC. Treat for 7-days (2) Debility: Status: Acute Code(s): R53.81 - Other malaise Plan: Poor baseline performance status that is acutely worsened by the UTI. PT OT eval and treat (3) Elevated CPK: Status: Acute Code(s): R74.8 - Abnormal levels of other serum enzymes Plan: Mild elevation Trending down. On IVF Plan Chronic conditions: * hypothyroidism: levothyroxine, liothyronine * Depression: escitalopram, quetiapine, clonazepam. * dementia: avoid sedating agents VTE prophylaxis: LMWH Disposition: DC to [facility] today. Medications at Discharge Home Medications dexamethasone sodium phosphate 0.1 % eye drops 1 drp ophthalmic (eye) DAILY glaucoma 03/09/21 clonazepam 1 mg tablet 1 mg PO [...] mg tablet 750 mg PO BID 11/22/22 albuterol sulfate 90 mcg/actuation aerosol inhaler (Proventil HFA) 2 puff inhalation Q6H PRN shortness of breath or wheezing #8.5 grams 11/23/22 acetaminophen 500 mg capsule 500 mg PO BID 05/19/23 famotidine 20 mg tablet (Pepcid) 20 mg PO QHS 05/19/23 polyethylene glycol 3350 17 gram/dose oral powder (ClearLax) 17 g PO DAILY 05/19/23 pyridoxine (vitamin B6) 100 mg tablet 100 mg PO DAILY 05/19/23 liothyronine 5 mcg tablet 5 mcg PO DAILY 07/04/24 quetiapine 25 mg tablet 25 mg PO QHS 07/04/24 meropenem 1 gram intravenous solution 1 g IV Q8 #20 ea 09/25/24 Hospital Course Operations None Procedures PICC line placement Summary of Care Provided Minutes Spent on Discharge: 32 Hospital Course: Patient presents with weakness from home. Patient has poor performance status at baseline but but was much weaker. Patient was found to have UTI. Started onceftriaxone but culture grew out Citrobacter that was resistant to ceftriaxone and patient will be discharged with meropenem for 7 days. Patient be [facility] in stable condition. Weight / BMI Weight Weight: 75.1 kg Body Mass Index (BMI) 25.2 ABG / Lab / Microbiology Data 09/23/24 06:00 09/23/24 06:00 Microbiology: Microbiology 09/22/24 21:31 Urine Catheter - Catheter Urine Culture - Preliminary Citrobacter species 09/22/24 20:33 Mucosa - Nose SARS-CoV-2, Influenza & RSV (PCR) - Final D/C Instructions Discharge Diet: No restrictions DC O2, CPAP, BIPAP Needs Home O2 Discharge instructions: No Meaningful Use Info Meaningful Use Meaningful Use Diagnoses (Choose all that apply): None applicable Ischemic Stroke Statin Dosing Therapy Reference: STATIN DOSE THERAPY REFERENCE: * Patients > 75 years receive moderate or high dose statin therapy. * Patients 75 years or YOUNGER should receive HIGH intensity statin dose unless contraindicated. You will be required to document reason for non-treatment if statin daily dose does not meet guidelines. HIGH DOSE STATIN THERAPY DAILY Atorvastatin > than or = to 40 mg Rosuvastatin > than or = to 20 mg Amlodipine + Atorvastatin > than or = to 2.5/40 mg Ezetimibe + Simvastatin 10/80 mg Simvastatin 80mg Discharge Plan Admission Admit Date/Time: 09/22/24 22:45 Primary Reason for Your Visit: UTI. Debility Attending Provider: Froy Velázquez Primary Care Provider: Erica Richardson Consulting Providers: Aggie Bolton Discharge Orders/Prescriptions Prescriptions: New meropenem 1 gram Recon Soln 1 g IV Q8 Qty: 20 0RF Continued dexamethasone sodium phosphate 0.1 % drops 1 drp ophthalmic (eye) DAILY Rx Instructions: RIGHT EYE acetaminophen 500 mg capsule 500 mg PO [...] 10 mg tablet 10 mg PO DAILY amlodipine 5 mg tablet 5 mg PO DAILY meclizine 25 MG tablet 25 mg PO TID calcitriol 0.5 mcg capsule 0.5 mcg PO DAILY Rx Instructions: please discontinue any rx for calcitriol by an other doctors albuterol sulfate [Proventil HFA] 90 mcg/actuation HFA aerosol inhaler 2 puff inhalation Q6H PRN (Reason: shortness of breath or wheezing) Qty: 8.5 0RF quetiapine 25 mg tablet 25 mg PO QHS liothyronine 5 mcg tablet 5 mcg PO DAILY clonazepam 1 mg tablet 1 mg PO BID Qty: 6 0RF pregabalin 75 mg capsule 75 mg PO TID Qty: 9 0RF Discontinued valacyclovir 1 gram tablet 1,000 mg PO DAILY levofloxacin 750 mg Tablet 750 mg PO DAILY@0600 Qty: 6 0RF quetiapine 100 mg tablet 25 mg PO DAILY potassium chloride 20 mEq tablet extended release 20 meq PO BID hydrocodone-acetaminophen 10-325 mg tablet PO TID levothyroxine 125 mcg tablet 125 mcg PO DAILY Qty: 90 0RF Referrals / Follow Up: Erica Richardson DO [Primary Care Provider] - Within 2 Weeks Disposition Disposition (needs filled in before D/C Order can be placed): [facility] Facility Charges/Coding Visit Charges Inpatient E&M: 11880 Disch Hosp >30min 09/25/24 1034 <Electronically signed by Froy Velázquez DO> Cosigner Signature (if applicable): CC: Dr. Froy Velázquez DO; Dr. Erica Richardson DO~ Signed [facility] Work Phone: 1(497) 746-856406-06-2025 Discharge summary Author Froy Velázquez [facility] Note Date/Time September 25, 2024 10:32 am [facility] Medical Records Department [address] [place] [address] Transfer to [facility] MR#: [id number] Acct: [id number] Name: AIDEN FIELDS Rep #:[id number] : 1945 78 From: Froy Velázquez DO PCP: Dr. Erica Richardson DO Status:ADM IN Certification of patient admission REQUIRED AT TIME OF ADMISSION. I CERTIFY THAT POST-HOSPITAL ECF SERVICES ARE REQUIRED TO BE GIVEN ON AN IN-PATIENT BASIS BECAUSE OF THE ABOVE NAMED PATIENT'S NEED FOR LONGTERM CARE ON A CONTINUING BASIS FOR THE CONDITION(S) FOR WHICH HE/SHE WAS RECEIVING IN-PATIENT HOSPITAL SERVICES PRIOR TO HIS/HER TRANSFER TO THE ECF. 09/25/24 1032<Electronically signed by Froy Velázquez DO> Diet Diet Order/Speech Therapy: INPATIENT Hospital Diet / Speech Therapy Order(s) 09/23/24 15:46 Diet: Regular - General Routine Orders/Code Status Code Status: Full Code DC O2, CPAP, BIPAP needs Home O2 Discharge instructions: No Problem/Diagnosis (1) UTI (urinary tract infection): Status: Acute Code(s): N39.0 - Urinary tract infection, site not specified Plan: On CTX, but the Citrobacter freundii is resistant, will change to meropenem. Will need PICC. Treat for 7-days (2) Debility: Status: Acute Code(s): R53.81 - Other malaise Plan: Poor baseline performance status that is acutely worsened by the UTI. PT OT eval and treat (3) Elevated CPK: Status: Acute Code(s): R74.8 - Abnormal levels of other serum enzymes Plan: Mild elevation Trending down. On IVF Plan Chronic conditions: * hypothyroidism: levothyroxine, liothyronine * Depression: escitalopram, quetiapine, clonazepam. * dementia: avoid sedating agents VTE prophylaxis: LMWH Disposition: DC to [facility] today. Allergies/Procedures Done in Hospital Allergies bacitracin (From Neosporin ([id number])) Allergy (Unknown, Verified 09/22/24 20:06) Unknown neomycin (From Neosporin ([id number])) Allergy (Unknown, Verified 09/22/24 20:06) Unknown polymyxin B (From Neosporin (nef-oew-isphk)) Allergy (Unknown, Verified 09/23/2519:06) Unknown Antihistamines - Alkylamine Allergy (Verified 09/22/24 20:06) PT UNSURE OF REACTION diphenhydramine (From Benadryl) Allergy (Verified 09/22/24 20:06) PT UNSURE OF REACTION Procedures: None Type of Care/Length of Stay Estimated LOS: Convalescent Care Less Than 30 days Type of Care Needed: Skilled Rehab Potential: Fair Prognosis: Fair Additional Orders/Day of Discharge Day of Discharge: 09/25/24 Dietary and Speech Recommendations Dietitian Recommendations/Changes: Adjust to liberal regular diet. Will monitor weight trends. Discharge Plan Admission Admit Date/Time: 09/22/24 22:45 Primary Reason for Your Visit: UTI. Debility Attending Provider: Froy Velázquez Primary Care Provider: Erica Richardson Consulting Providers: Aggie Bolton Discharge Orders/Prescriptions Prescriptions: New meropenem 1 gram Recon Soln 1 g IV Q8 Qty: 20 0RF Continued dexamethasone sodium phosphate 0.1 % drops 1 drp ophthalmic (eye) DAILY Rx Instructions: RIGHT EYE acetaminophen 500 mg capsule 500 mg PO [...] 10 mg tablet 10 mg PO DAILY amlodipine 5 mg tablet 5 mg PO DAILY meclizine 25 MG tablet 25 mg PO TID calcitriol 0.5 mcg capsule 0.5 mcg PO DAILY Rx Instructions: please discontinue any rx for calcitriol by an other doctors albuterol sulfate [Proventil HFA] 90 mcg/actuation HFA aerosol inhaler 2 puff inhalation Q6H PRN (Reason: shortness of breath or wheezing) Qty: 8.5 0RF quetiapine 25 mg tablet 25 mg PO QHS liothyronine 5 mcg tablet 5 mcg PO DAILY clonazepam 1 mg tablet 1 mg PO BID Qty: 6 0RF pregabalin 75 mg capsule 75 mg PO TID Qty: 9 0RF Discontinued valacyclovir 1 gram tablet 1,000 mg PO DAILY levofloxacin 750 mg Tablet 750 mg PO DAILY@0600 Qty: 6 0RF quetiapine 100 mg tablet 25 mg PO DAILY potassium chloride 20 mEq tablet extended release 20 meq PO BID hydrocodone-acetaminophen 10-325 mg tablet PO TID levothyroxine 125 mcg tablet 125 mcg PO DAILY Qty: 90 0RF Referrals / Follow Up: Erica Richardson DO [Primary Care Provider] - Within 2 Weeks Disposition Disposition (needs filled in before D/C Order can be placed): [facility] Facility 09/25/24 1032 <Electronically signed by Froy Velázquez DO> Cosigner Signature (if applicable): CC: Dr. Aggie Bolton MD; Dr. Erica Richardson DO ~ [facility] Work Phone: 1(150) 341-977606-06-2025 Progress [facility] Note Date/Time September 25, 2024 10:26 am [facility] Medical Records Department [address] [place] [id number] Progress Note - Hospitalist 09/25/24 0803 MR#: [id number] Acct: [id number] Name: AIDEN FIELDS Rep #:[id number] : 1945 78 From: Froy Velázquez DO PCP: Dr. Erica Richardson DO Status:ADM IN Location: [place] [id number] Reason for Visit Reason for Visit: Diagnoses Urinary tract infection, site not specified (09/22/24) Other malaise (09/22/24) Abnormal levels of other serum enzymes (09/22/24) Subjective Subjective Feels well. No new complaints. Objective Data Objective Data Vital Signs: Vital Signs Temp Pulse Resp BP Pulse Ox O2 Del Method O2 Flow Rate 36.7 C 76 16 152/87 H 92 Room Air 1 09/25/24 03:17 09/25/24 03:17 09/25/24 03:17 09/25/24 03:17 09/25/24 03:17 09/25/24 03:21 09/22/24 22:00 Oxygen Flow Rate (L/min) 1 Oxygen Delivery Method Room Air Weight: 75.1 kg Body Mass Index (BMI) 25.2 Intake & Output: Intake and Output for Last 24 Hours 09/23/24 09/24/24 09/25/24 23:59 23:59 23:59 Intake Total 1970 / 1970 50 / 170 360 / 360 Output Total 300 / 300 500 / 700 600 / 600 Balance 1670 / 1670 -450 / -530 -240 / -240 Lab / Micro Data 09/23/24 06:00 09/23/24 06:00 Micro: Microbiology 09/22/24 21:31 Urine Catheter - Catheter Urine Culture - Preliminary Citrobacter species 09/22/24 20:33 Mucosa - Nose SARS-CoV-2, Influenza & RSV (PCR) - Final Physical Exam Const alert and no apparent distress Constitutional Narrative: Lying in bed. Nontoxic. Psych affect normal Assessment & Plan Assessment/Plan (1) UTI (urinary tract infection): PLAN: On CTX, but the Citrobacter freundii is resistant, will change to meropenem. Will need PICC. Treat for 7-days (2) Debility: PLAN: Poor baseline performance status that is acutely worsened by the UTI. PT OT eval and treat (3) Elevated CPK: PLAN: Mild elevation Trending down. On IVF PLAN: Plan Chronic conditions: * hypothyroidism: levothyroxine, liothyronine * Depression: escitalopram, quetiapine, clonazepam. * dementia: avoid sedating agents VTE prophylaxis: LMWH Disposition: DC to [facility] today. 09/25/24 1026 <Electronically signed by Froy Velázquez DO> Cosigner Signature (if applicable): CC: ~ Signed [facility] Work Phone: 1(997) 825-265506-06-2025 Discharge summary [facility] Medical Records Department [address] [place] [address] Discharge Summary 09/25/24 1032 MR#: [id number] Acct: [id number] Name: AIDEN FIELDS Rep #:[id number] : 1945 78 From: Froy Velázquez DO PCP: Dr. Erica Richardson DO Status:ADM IN Location: [place] [address] Providers Date of Admission: 09/22/24 Primary Care Physician: Dr. Erica Richardson DO Reason For Visit: ADULT FTT, UTI, MILD RHABDO Diagnosis Discharge Diagnosis (1) UTI (urinary tract infection): Status: Acute Code(s): N39.0 - Urinary tract infection, site not specified Plan: On CTX, but the Citrobacter freundii is resistant, will change to meropenem. Will need PICC. Treat for 7-days (2) Debility: Status: Acute Code(s): R53.81 - Other malaise Plan: Poor baseline performance status that is acutely worsened by the UTI. PT OT eval and treat (3) Elevated CPK: Status: Acute Code(s): R74.8 - Abnormal levels of other serum enzymes Plan: Mild elevation Trending down. On IVF Plan Chronic conditions: * hypothyroidism: levothyroxine, liothyronine * Depression: escitalopram, quetiapine, clonazepam. * dementia: avoid sedating agents VTE prophylaxis: LMWH Disposition: DC to [facility] today. Medications at Discharge Home Medications dexamethasone sodium phosphate 0.1 % eye drops 1 drp ophthalmic (eye) DAILY glaucoma 03/09/21 clonazepam 1 mg tablet 1 mg PO [...] mg tablet 750 mg PO BID 11/22/22 albuterol sulfate 90 mcg/actuation aerosol inhaler (Proventil HFA) 2 puff inhalation Q6H PRN shortness of breath or wheezing #8.5 grams 11/23/22 acetaminophen 500 mg capsule 500 mg PO BID 05/19/23 famotidine 20 mg tablet (Pepcid) 20 mg PO QHS 05/19/23 polyethylene glycol 3350 17 gram/dose oral powder (ClearLax) 17 g PO DAILY 05/19/23 pyridoxine (vitamin B6) 100 mg tablet 100 mg PO DAILY 05/19/23 liothyronine 5 mcg tablet 5 mcg PO DAILY 07/04/24 quetiapine 25 mg tablet 25 mg PO QHS 07/04/24 meropenem 1 gram intravenous solution 1 g IV Q8 #20 ea 09/25/24 Hospital Course Operations None Procedures PICC line placement Summary of Care Provided Minutes Spent on Discharge: 32 Hospital Course: Patient presents with weakness from home. Patient has poor performance status at baseline but but was much weaker. Patient was found to have UTI. Started onceftriaxone but culture grew out Citrobacter that was resistant to ceftriaxone and patient will be discharged with meropenem for 7 days. Patient be [facility] in stable condition. Weight / BMI Weight Weight: 75.1 kg Body Mass Index (BMI) 25.2 ABG / Lab / Microbiology Data 09/23/24 06:00 09/23/24 06:00 Microbiology: Microbiology 09/22/24 21:31 Urine Catheter - Catheter Urine Culture - Preliminary Citrobacter species 09/22/24 20:33 Mucosa - Nose SARS-CoV-2, Influenza & RSV (PCR) - Final D/C Instructions Discharge Diet: No restrictions DC O2, CPAP, BIPAP Needs Home O2 Discharge instructions: No Meaningful Use Info Meaningful Use Meaningful Use Diagnoses (Choose all that apply): None applicable Ischemic Stroke Statin Dosing Therapy Reference: STATIN DOSE THERAPY REFERENCE: * Patients > 75 years receive moderate or high dose statin therapy. * Patients 75 years or YOUNGER should receive HIGH intensity statin dose unless contraindicated. You will be required to document reason for non-treatment if statin daily dose does not meet guidelines. HIGH DOSE STATIN THERAPY DAILY Atorvastatin > than or = to 40 mg Rosuvastatin > than or = to 20 mg Amlodipine + Atorvastatin > than or = to 2.5/40 mg Ezetimibe + Simvastatin 10/80 mg Simvastatin 80mg Discharge Plan Admission Admit Date/Time: 09/22/24 22:45 Primary Reason for Your Visit: UTI. Debility Attending Provider: Froy Velázquez Primary Care Provider: Erica Richardson Consulting Providers: Aggie Bolton Discharge Orders/Prescriptions Prescriptions: New meropenem 1 gram Recon Soln 1 g IV Q8 Qty: 20 0RF Continued dexamethasone sodium phosphate 0.1 % drops 1 drp ophthalmic (eye) DAILY Rx Instructions: RIGHT EYE acetaminophen 500 mg capsule 500 mg PO [...] 10 mg tablet 10 mg PO DAILY amlodipine 5 mg tablet 5 mg PO DAILY meclizine 25 MG tablet 25 mg PO TID calcitriol 0.5 mcg capsule 0.5 mcg PO DAILY Rx Instructions: please discontinue any rx for calcitriol by an other doctors albuterol sulfate [Proventil HFA] 90 mcg/actuation HFA aerosol inhaler 2 puff inhalation Q6H PRN (Reason: shortness of breath or wheezing) Qty: 8.5 0RF quetiapine 25 mg tablet 25 mg PO QHS liothyronine 5 mcg tablet 5 mcg PO DAILY clonazepam 1 mg tablet 1 mg PO BID Qty: 6 0RF pregabalin 75 mg capsule 75 mg PO TID Qty: 9 0RF Discontinued valacyclovir 1 gram tablet 1,000 mg PO DAILY levofloxacin 750 mg Tablet 750 mg PO DAILY@0600 Qty: 6 0RF quetiapine 100 mg tablet 25 mg PO DAILY potassium chloride 20 mEq tablet extended release 20 meq PO BID hydrocodone-acetaminophen 10-325 mg tablet PO TID levothyroxine 125 mcg tablet 125 mcg PO DAILY Qty: 90 0RF Referrals / Follow Up: Erica Richardson DO [Primary Care Provider] - Within 2 Weeks Disposition Disposition (needs filled in before D/C Order can be placed): [facility] Charges/Coding Visit Charges Inpatient E&M: 57642 Disch Hosp >30min 09/25/24 1034 Cosigner Signature (if applicable): CC: Dr. Froy Velázquez DO; Dr. Erica Richardson DO~ Signed [facility]06-06-2025 Discharge summary [facility] Medical Records Department [address] [place] [address] Transfer to [facility] Care MR#: [id number] Acct: [id number] Name: AIDEN FIELDS Rep #:[id number] : 1945 78 From: Froy Velázquez DO PCP: Dr. Erica Richardson DO Status:ADM IN Certification of patient admission REQUIRED AT TIME OF ADMISSION. I CERTIFY THAT POST-HOSPITAL ECF SERVICES ARE REQUIRED TO BE GIVEN ON AN IN-PATIENT BASIS BECAUSE OF THE ABOVE NAMED PATIENT'S NEED FOR LONGTERM CARE ON A CONTINUING BASIS FOR THE CONDITION(S) FOR WHICH HE/SHE WAS RECEIVING IN-PATIENT HOSPITAL SERVICES PRIOR TO HIS/HER TRANSFER TO THE ECF. 09/25/24 1032 Diet Diet Order/Speech Therapy: INPATIENT Hospital Diet / Speech Therapy Order(s) 09/23/24 15:46 Diet: Regular - General Routine Orders/Code Status Code Status: Full Code DC O2, CPAP, BIPAP needs Home O2 Discharge instructions: No Problem/Diagnosis (1) UTI (urinary tract infection): Status: Acute Code(s): N39.0 - Urinary tract infection, site not specified Plan: On CTX, but the Citrobacter freundii is resistant, will change to meropenem. Will need PICC. Treat for 7-days (2) Debility: Status: Acute Code(s): R53.81 - Other malaise Plan: Poor baseline performance status that is acutely worsened by the UTI. PT OT eval and treat (3) Elevated CPK: Status: Acute Code(s): R74.8 - Abnormal levels of other serum enzymes Plan: Mild elevation Trending down. On IVF Plan Chronic conditions: * hypothyroidism: levothyroxine, liothyronine * Depression: escitalopram, quetiapine, clonazepam. * dementia: avoid sedating agents VTE prophylaxis: LMWH Disposition: DC to [facility] today. Allergies/Procedures Done in Hospital Allergies bacitracin (From Neosporin ([id number])) Allergy (Unknown, Verified 09/22/24 20:06) Unknown neomycin (From Neosporin ([id number]-[id number])) Allergy (Unknown, Verified 09/22/24 20:06) Unknown polymyxin B (From Neosporin ([id number])) Allergy (Unknown, Verified 09/23/2519:06) Unknown Antihistamines - Alkylamine Allergy (Verified 09/22/24 20:06) PT UNSURE OF REACTION diphenhydramine (From Benadryl) Allergy (Verified 09/22/24 20:06) PT UNSURE OF REACTION Procedures: None Type of Care/Length of Stay Estimated LOS: Convalescent Care Less Than 30 days Type of Care Needed: Skilled Rehab Potential: Fair Prognosis: Fair Additional Orders/Day of Discharge Day of Discharge: 09/25/24 Dietary and Speech Recommendations Dietitian Recommendations/Changes: Adjust to liberal regular diet. Will monitor weight trends. Discharge Plan Admission Admit Date/Time: 09/22/24 22:45 Primary Reason for Your Visit: UTI. Debility Attending Provider: Froy Velázquez Primary Care Provider: Erica Richardson Consulting Providers: Aggie Bolton Discharge Orders/Prescriptions Prescriptions: New meropenem 1 gram Recon Soln 1 g IV Q8 Qty: 20 0RF Continued dexamethasone sodium phosphate 0.1 % drops 1 drp ophthalmic (eye) DAILY Rx Instructions: RIGHT EYE acetaminophen 500 mg capsule 500 mg PO [...] 10 mg tablet 10 mg PO DAILY amlodipine 5 mg tablet 5 mg PO DAILY meclizine 25 MG tablet 25 mg PO TID calcitriol 0.5 mcg capsule 0.5 mcg PO DAILY Rx Instructions: please discontinue any rx for calcitriol by an other doctors albuterol sulfate [Proventil HFA] 90 mcg/actuation HFA aerosol inhaler 2 puff inhalation Q6H PRN (Reason: shortness of breath or wheezing) Qty: 8.5 0RF quetiapine 25 mg tablet 25 mg PO QHS liothyronine 5 mcg tablet 5 mcg PO DAILY clonazepam 1 mg tablet 1 mg PO BID Qty: 6 0RF pregabalin 75 mg capsule 75 mg PO TID Qty: 9 0RF Discontinued valacyclovir 1 gram tablet 1,000 mg PO DAILY levofloxacin 750 mg Tablet 750 mg PO DAILY@0600 Qty: 6 0RF quetiapine 100 mg tablet 25 mg PO DAILY potassium chloride 20 mEq tablet extended release 20 meq PO BID hydrocodone-acetaminophen 10-325 mg tablet PO TID levothyroxine 125 mcg tablet 125 mcg PO DAILY Qty: 90 0RF Referrals / Follow Up: Erica Richardson DO [Primary Care Provider] - Within 2 Weeks Disposition Disposition (needs filled in before D/C Order can be placed): [facility] Facility 09/25/24 1032 Cosigner Signature (if applicable): CC: Dr. Aggie Bolton MD; Dr. Erica Richardson DO ~ [facility]06-06-2025 [facility] Medical Records Department [address] [place] [address] Discharge Summary 09/25/24 1032 MR#: [id number] Acct: [id number] Name: AIDEN FIELDS Rep #: [id number] : 1945 78 From: Froy Velázquez DO PCP: Dr. Erica Richardson DO Status:ADM IN Location: [facility] [id number] Providers Date of Admission: 09/22/24 Primary Care Physician: Dr. Erica Richardson DO Reason For Visit: ADULT FTT, UTI, MILD RHABDO Diagnosis Discharge Diagnosis (1) UTI (urinary tract infection): Status: Acute Code(s): N39.0 - Urinary tract infection, site not specified Plan: On CTX, but the Citrobacter freundii is resistant, will change to meropenem. Will need PICC. Treat for 7-days (2) Debility: Status: Acute Code(s): R53.81 - Other malaise Plan: Poor baseline performance status that is acutely worsened by the UTI. PT OT eval and treat (3) Elevated CPK: Status: Acute Code(s): R74.8 - Abnormal levels of other serum enzymes Plan: Mild elevation Trending down. On IVF Plan Chronic conditions: * hypothyroidism: levothyroxine, liothyronine * Depression: escitalopram, quetiapine, clonazepam. * dementia: avoid sedating agents VTE prophylaxis: LMWH Disposition: DC to [facility] today. Medications at Discharge Home Medications dexamethasone sodium phosphate 0.1 % eye drops 1 drp ophthalmic (eye) DAILY glaucoma 03/09/21 clonazepam 1 mg tablet 1 mg PO [...] mg tablet 750 mg PO BID 11/22/22 albuterol sulfate 90 mcg/actuation aerosol inhaler (Proventil HFA) 2 puff inhalation Q6H PRN shortness of breath or wheezing #8.5 grams 11/23/22 acetaminophen 500 mg capsule 500 mg PO BID 05/19/23 famotidine 20 mg tablet (Pepcid) 20 mg PO QHS 05/19/23 polyethylene glycol 3350 17 gram/dose oral powder (ClearLax) 17 g PO DAILY 05/19/23 pyridoxine (vitamin B6) 100 mg tablet 100 mg PO DAILY 05/19/23 liothyronine 5 mcg tablet 5 mcg PO DAILY 07/04/24 quetiapine 25 mg tablet 25 mg PO QHS 07/04/24 meropenem 1 gram intravenous solution 1 g IV Q8 #20 ea 09/25/24 Hospital Course Operations None Procedures PICC line placement Summary of Care Provided Minutes Spent on Discharge: 32 Hospital Course: Patient presents with weakness from home. Patient has poor performance status at baseline but but was much weaker. Patient was found to have UTI. Started on ceftriaxone but culture grew out Citrobacter that was resistant to ceftriaxone and patient will be discharged with meropenem for 7 days. Patient be discharged to [facility] in stable condition. Weight / BMI Weight Weight: 75.1 kg Body Mass Index (BMI) 25.2 ABG / Lab / Microbiology Data 09/23/24 06:00 09/23/24 06:00 Microbiology: Microbiology 09/22/24 21:31 Urine Catheter - Catheter Urine Culture - Preliminary Citrobacter species 09/22/24 20:33 Mucosa - Nose SARS-CoV-2, Influenza RSV (PCR) - Final D/C Instructions Discharge Diet: No restrictions DC O2, CPAP, BIPAP Needs Home O2 Discharge instructions: No Meaningful Use Info Meaningful Use Meaningful Use Diagnoses (Choose all that apply): None applicable Ischemic Stroke Statin Dosing Therapy Reference: STATIN DOSE THERAPY REFERENCE: * Patients > 75 years receive moderate or high dose statin therapy. * Patients 75 years or YOUNGER should receive HIGH intensity statin dose unless contraindicated. You will be required to document reason for non-treatment if statin daily dose does not meet guidelines. HIGH DOSE STATIN THERAPY DAILY Atorvastatin > than or = to 40 mg Rosuvastatin > than or = to 20 mg Amlodipine + Atorvastatin > than or = to 2.5/40 mg Ezetimibe + Simvastatin 10/80 mg Simvastatin 80mg Discharge Plan Admission Admit Date/Time: 09/22/24 22:45 Primary Reason for Your Visit: UTI. Debility Attending Provider: Froy Velázquez Primary Care Provider: Erica Richardson Consulting Providers: Aggie Bolton Discharge Orders/Prescriptions Prescriptions: New meropenem 1 gram Recon Soln 1 g IV Q8 Qty: 20 0RF Continued dexamethasone sodium phosphate 0.1 % drops 1 drp ophthalmic (eye) DAILY Rx Instructions: RIGHT EYE acetaminophen 500 mg capsule 500 mg PO BID polyethylene glycol 3350 [ClearLax] 17 gram/dose powder 17 g PO DAILY famotidine [Pepcid] 20 mg tablet 2 (more content not included)...[facility]06-06-2025 Progress note [facility] Medical Records Department [address] [place] [address] Progress Note - Hospitalist 06/10/14 802 MR#: [id number] Acct: [id number] Name: AIDEN FIELDS Rep #:[id number] : 1945 78 From: Froy Velázquez DO PCP: Dr. Erica Richardson, DO Status:ADM IN Location: [place] [address] Reason for Visit Reason for Visit: Diagnoses Urinary tract infection, site not specified (09/22/24) Other malaise (09/22/24) Abnormal levels of other serum enzymes (09/22/24) Subjective Subjective Feels well. No new complaints. Objective Data Objective Data Vital Signs: Vital Signs Temp Pulse Resp BP Pulse Ox O2 Del Method O2 Flow Rate 36.7 C 76 16 152/87 H 92 Room Air 1 09/25/24 03:17 09/25/24 03:17 09/25/24 03:17 09/25/24 03:17 09/25/24 03:17 09/25/24 03:21 09/22/24 22:00 Oxygen Flow Rate (L/min) 1 Oxygen Delivery Method Room Air Weight: 75.1 kg Body Mass Index (BMI) 25.2 Intake & Output: Intake and Output for Last 24 Hours 09/23/24 09/24/24 09/25/24 23:59 23:59 23:59 Intake Total 1970 / 1970 50 / 170 360 / 360 Output Total 300 / 300 500 / 700 600 / 600 Balance 1670 / 1670 -450 / -530 -240 / -240 Lab / Micro Data 09/23/24 06:00 09/23/24 06:00 Micro: Microbiology 09/22/24 21:31 Urine Catheter - Catheter Urine Culture - Preliminary Citrobacter species 09/22/24 20:33 Mucosa - Nose SARS-CoV-2, Influenza & RSV (PCR) - Final Physical Exam Const alert and no apparent distress Constitutional Narrative: Lying in bed. Nontoxic. Psych affect normal Assessment & Plan Assessment/Plan (1) UTI (urinary tract infection): PLAN: On CTX, but the Citrobacter freundii is resistant, will change to meropenem. Will need PICC. Treat for 7-days (2) Debility: PLAN: Poor baseline performance status that is acutely worsened by the UTI. PT OT eval and treat (3) Elevated CPK: PLAN: Mild elevation Trending down. On IVF PLAN: Plan Chronic conditions: * hypothyroidism: levothyroxine, liothyronine * Depression: escitalopram, quetiapine, clonazepam. * dementia: avoid sedating agents VTE prophylaxis: LMWH [facility]. 09/25/24 1026 Cosigner Signature (if applicable): CC: ~ Signed [facility]06-05-2025 Progress note Author Froy Velázquez [facility] Note Date/Time September 24, 2024 12:26 pm [facility] Medical Records Department [address] [place] [address] Progress Note - Hospitalist 09/24/24 0809 MR#: [id number] Acct: [id number] Name: AIDEN FIELDS Rep #:[id number] : 1945 78 From: Froy Velázquez DO PCP: Dr. Erica Richardson DO Status:ADM IN Location: [place] [address] Reason for Visit Reason for Visit: Diagnoses Urinary tract infection, site not specified (09/22/24) Other malaise (09/22/24) Abnormal levels of other serum enzymes (09/22/24) Subjective Subjective No new complaints. Objective Data Objective Data Vital Signs: Vital Signs Temp Pulse Resp BP Pulse Ox O2 Del Method O2 Flow Rate 36.2 C L 69 18 129/80 H 94 Room Air 1 09/24/24 03:33 09/24/24 03:33 09/24/24 03:33 09/24/24 03:33 09/24/24 03:33 09/24/24 03:33 09/22/24 22:00 Oxygen Flow Rate (L/min) 1 Oxygen Delivery Method Room Air Weight: 76.9 kg Body Mass Index (BMI) 25.7 Intake & Output: Intake and Output for Last 24 Hours 09/22/24 09/23/24 09/24/24 23:59 23:59 23:59 Intake Total 1050 / 1050 1969 / 1969 Output Total 300 / 300 100 / 100 Balance 1050 / 1050 1670 / 1670 -100 / -100 Lab / Micro Data 09/23/24 06:00 09/23/24 06:00 Micro: Microbiology 09/22/24 20:33 Mucosa - Nose SARS-CoV-2, Influenza & RSV (PCR) - Final Physical Exam Const alert and no apparent distress Constitutional Narrative: lying in bed. non-toxic. afebrile. HEENT head/scalp atraumatic and moist oral mucous membranes Cardio regular rate and regular rhythm GI normal to inspection, nondistended, normoactive bowel sounds, soft to palpation,non-tender and non-distended Extremity normal to inspection Neuro Sensorium / Orientation: awake and alert Psych affect normal Assessment & Plan Assessment/Plan (1) UTI (urinary tract infection): PLAN: On CTX Follow up UCx shows Citrobacter freundii (2) Debility: PLAN: Poor baseline performance status that is acutely worsened by the UTI. PT OT eval and treat (3) Elevated CPK: PLAN: Mild elevation Trending down. On IVF PLAN: Plan Chronic conditions: * hypothyroidism: levothyroxine, liothyronine * Depression: escitalopram, quetiapine, clonazepam. * dementia: avoid sedating agents VTE prophylaxis: LMWH Disposition: plan for SNF on 09/25 Charges/Coding Visit Charges Inpatient E&M: 25876 Subs Hosp L2 09/24/24 1226 <Electronically signed by Froy Velázquez DO> Cosigner Signature (if applicable): CC: ~ Signed [facility] Work Phone: 1(770) 130-268706-05-2025 Progress note [facility] Medical Records Department [address] [place] [address] Progress Note - Hospitalist 09/24/24 0809 MR#: [id number] Acct: [id number] Name: AIDEN FIELDS Rep #:[id number] : 1945 78 From: Froy Velázquez DO PCP: Dr. Erica Richardson, DO Status:ADM IN Location: [place] [address] Reason for Visit Reason for Visit: Diagnoses Urinary tract infection, site not specified (09/22/24) Other malaise (09/22/24) Abnormal levels of other serum enzymes (09/22/24) Subjective Subjective No new complaints. Objective Data Objective Data Vital Signs: Vital Signs Temp Pulse Resp BP Pulse Ox O2 Del Method O2 Flow Rate 36.2 C L 69 18 129/80 H 94 Room Air 1 09/24/24 03:33 09/24/24 03:33 09/24/24 03:33 09/24/24 03:33 09/24/24 03:33 09/24/24 03:33 09/22/24 22:00 Oxygen Flow Rate (L/min) 1 Oxygen Delivery Method Room Air Weight: 76.9 kg Body Mass Index (BMI) 25.7 Intake & Output: Intake and Output for Last 24 Hours 09/22/24 09/23/24 09/24/24 23:59 23:59 23:59 Intake Total 1050 / 1050 1969 / 1969 Output Total 300 / 300 100 / 100 Balance 1050 / 1050 1670 / 1670 -100 / -100 Lab / Micro Data 09/23/24 06:00 09/23/24 06:00 Micro: Microbiology 09/22/24 20:33 Mucosa - Nose SARS-CoV-2, Influenza & RSV (PCR) - Final Physical Exam Const alert and no apparent distress Constitutional Narrative: lying in bed. non-toxic. afebrile. HEENT head/scalp atraumatic and moist oral mucous membranes Cardio regular rate and regular rhythm GI normal to inspection, nondistended, normoactive bowel sounds, soft to palpation,non-tender and non-distended Extremity normal to inspection Neuro Sensorium / Orientation: awake and alert Psych affect normal Assessment & Plan Assessment/Plan (1) UTI (urinary tract infection): PLAN: On CTX Follow up UCx shows Citrobacter freundii (2) Debility: PLAN: Poor baseline performance status that is acutely worsened by the UTI. PT OT eval and treat (3) Elevated CPK: PLAN: Mild elevation Trending down. On IVF PLAN: Plan Chronic conditions: * hypothyroidism: levothyroxine, liothyronine * Depression: escitalopram, quetiapine, clonazepam. * dementia: avoid sedating agents VTE prophylaxis: LMWH Disposition: plan for SNF on 09/25 Charges/Coding Visit Charges Inpatient E&M: 93346 Subs Hosp L2 09/24/24 1226 Cosigner Signature (if applicable): CC: ~ Signed [facility]06-04-2025 Progress note Author Froy Velázquez [facility] Note Date/Time September 23, 2024 3:21p m [facility] Medical Records Department [address] [place] [address] Progress Note - Hospitalist 09/23/24 0816 MR#: [id number] Acct: [id number] Name: AIDEN FIELDS Rep #:[id number] : 1945 78 From: Froy Velázquez DO PCP: Dr. Erica Richardson, DO Status:ADM IN Location: [place] [address] Reason for Visit Reason for Visit: Diagnoses Urinary tract infection, site not specified (09/22/24) Subjective Subjective No new complaints other than wanting to go home. Admits to having 24h care daily. Objective Data Objective Data Vital Signs: Vital Signs Temp Pulse Resp BP Pulse Ox O2 Del Method O2 Flow Rate 36.9 C 76 16 129/65 H 91 Room Air 1 09/23/24 04:37 09/23/24 04:37 09/23/24 04:37 09/23/24 04:37 09/23/24 04:37 09/23/24 04:37 09/22/24 22:00 Oxygen Flow Rate (L/min) 1 Oxygen Delivery Method Room Air Weight: 76.612 kg Body Mass Index (BMI) 25.6 Intake & Output: Intake and Output for Last 24 Hours 09/21/24 09/22/24 09/23/24 23:59 23:59 23:59 Intake Total 1050 / 1050 200 / 200 Output Total 250 / 250 Balance 1050 / 1050 -50 / -50 Lab / Micro Data 09/23/24 06:00 09/23/24 06:00 Labs: Laboratory Results - last 24 hr 09/22/24 20:33: WBC 11.6 H, RBC 4.04 L, Hgb 13.2, Hct 39.5, MCV 97.8, MCH 32.7 H, MCHC 33.4, RDW Std Deviation 47.2 H, RDW Coeff of Felix 13.1, Plt Count 259, MPV12.0, Immature Gran % (Auto) 0.400, Neut % (Auto) 69.5, Lymph % (Auto) 18.8 L, Shackelford % (Auto) 7.5, Eos % (Auto) 2.9, Baso % (Auto) 0.9, Absolute Neuts (auto) 8.0 H, Absolute Lymphs (auto) 2.17, Nucleated RBC % 0, Sodium 136, Potassium 5.2H, Chloride 100, Carbon Dioxide 25.5, Anion Gap 11, BUN 13, Creatinine 0.86, Estim Creat Clear Calc 58.83, Est GFR (MDRD) Non-Af 70, BUN/Creatinine Ratio 15.0, Glucose 97, Calcium 8.6, Total Bilirubin 0.31, AST 40 H, ALT 16, Alkaline Phosphatase 87, Total Creatine Kinase 316 H, Total Protein 6.6, Albumin 3.6, Globulin 3.0, Albumin/Globulin Ratio 1.2, Urine Color Cancelled, Urine Clarity Cancelled, Urine pH Cancelled, Ur Specific Bethesda Cancelled, U Specif Grav (Refrac) Cancelled, Urine Protein Cancelled, Urine Glucose (UA) Cancelled, UrineKetones Cancelled, Urine Occult Blood Cancelled, Urine Nitrite Cancelled, Urine Bilirubin Cancelled, Urine Urobilinogen Cancelled, Ur Leukocyte Esterase Cancelled, Urine RBC Cancelled, Urine WBC Cancelled, Ur Squamous Epith Cells Cancelled, Ur Transition Epith Cell Cancelled, Ur Renal Epithelial Cell Cancelled, Calcium Oxalate Crystal Cancelled, Uric Acid Crystals Cancelled, Triple Phos Crystals Cancelled, Other Crystals Cancelled, Amorphous Sediment Cancelled, Urine Bacteria Cancelled, Hyaline Casts Cancelled, Fine Granular Casts Cancelled, Coarse Granular Casts Cancelled, Waxy Casts Cancelled, RBC Casts Cancelled, WBC Casts Cancelled, Urine Mucus Cancelled, Urine Trichomonas Cancelled, Urine Yeast Cancelled 09/22/24 21:31: Urine Color Straw, Urine Clarity Cloudy, Urine pH 5.0, Ur Specific Bethesda 1.015, Urine Protein 15 H, Urine Glucose (UA) Normal, Urine Ketones Negative, Urine Occult Blood 10 H, Urine Nitrite Positive H, Urine Bilirubin Negative, Urine Urobilinogen Normal, Ur Leukocyte Esterase 500 H, Urine RBC 0-5 SEEN, Urine WBC 50-100 SEEN, Ur Squamous Epith Cells 0-5 SEEN, Urine Bacteria 4+, Urine Mucus 0 SEEN 09/23/24 06:00: WBC 10.3, RBC 3.68 L, Hgb 12.0, Hct 35.9 L, MCV 97.6, MCH 32.6 H, MCHC 33.4, RDW Std Deviation 47.4 H, RDW Coeff of Felix 13.2, Plt Count 241, MPV11.7, Immature Gran % (Auto) 0.400, Neut % (Auto) 70.6 H, Lymph % (Auto) 16.2 L,Shackelford % (Auto) 9.6, Eos % (Auto) 2.4, Baso % (Auto) 0.8, Absolute Neuts (auto) 7.2, Absolute Lymphs (auto) 1.66, Nucleated RBC % 0, Sodium 140, Potassium 4.1, Chloride 105, Carbon Dioxide 24.4, Anion Gap 10, BUN 13, Creatinine 0.71, Estim Creat Clear Calc 59.41, Est GFR (MDRD) Non-Af 87, BUN/Creatinine Ratio 18.3, Glucose 162 H, Calcium 8.0, Total Bilirubin 0.17, AST 24, ALT 13, Alkaline Phosphatase 80, Total Creatine Kinase 271 H, Total Protein 6.2, Albumin 3.4, Globulin 2.8, Albumin/Globulin Ratio 1.2 Micro: Microbiology 09/22/24 20:33 Mucosa - Nose SARS-CoV-2, Influenza & RSV (PCR) - Final Radiography Diagnostic Testing: Radiology Impression Brain CT 09/22/24 20:50 IMPRESSION: No acute intracranial abnormality. Reading Location: [place] [address] Chest X-Ray 09/22/24 20:55 IMPRESSION: No acute cardiopulmonary abnormalities. Reading Location: [place] [address] Physical Exam Const alert and no apparent distress Constitutional Narrative: groggy. afebrile. HEENT head/scalp atraumatic and moist oral mucous membranes Resp normal respiratory effort, no retractions, no use of accessory muscles and clearto auscultation bilaterally Cardio regular rate, regular rhythm, S1 normal heart sound and S2 normal heart sound GI normal to inspection, nondistended, normoactive bowel sounds, soft to palpation,non-tender and non-distended Assessment & Plan Assessment/Plan (1) UTI (urinary tract infection): PLAN: On CTX Follow up UCx (2) Debility: PLAN: Poor baseline performance status that is acutely worsened by the UTI. PT OT eval and treat (3) Elevated CPK: PLAN: Mild elevation Trending down. On IVF PLAN: Plan Chronic conditions: * hypothyroidism: levothyroxine, liothyronine * Depression: escitalopram, quetiapine, clonazepam. * dementia: avoid sedating agents VTE prophylaxis: LMWH Charges/Coding Visit Charges Inpatient E&M: 12617 Subs Hosp L2 09/23/24 1521 <Electronically signed by Froy Velázquez DO> Cosigner Signature (if applicable): CC: ~ Signed [facility] Work Phone: 1(688) 747-600606-04-2025 Progress note [facility] Medical Records Department [address] [place] [address] Progress Note - Hospitalist 09/23/24 08 MR#: [id number] Acct: [id number] Name: AIDEN FIELDS Rep #:[id number] : 1945 78 From: Froy Velázquez DO PCP: Dr. Erica Richardson DO Status:ADM IN Location: [place] [address] Reason for Visit Reason for Visit: Diagnoses Urinary tract infection, site not specified (09/22/24) Subjective Subjective No new complaints other than wanting to go home. Admits to having 24h care daily. Objective Data Objective Data Vital Signs: Vital Signs Temp Pulse Resp BP Pulse Ox O2 Del Method O2 Flow Rate 36.9 C 76 16 129/65 H 91 Room Air 1 09/23/24 04:37 09/23/24 04:37 09/23/24 04:37 09/23/24 04:37 09/23/24 04:37 09/23/24 04:37 09/22/24 22:00 Oxygen Flow Rate (L/min) 1 Oxygen Delivery Method Room Air Weight: 76.612 kg Body Mass Index (BMI) 25.6 Intake & Output: Intake and Output for Last 24 Hours 09/21/24 09/22/24 09/23/24 23:59 23:59 23:59 Intake Total 1050 / 1050 200 / 200 Output Total 250 / 250 Balance 1050 / 1050 -50 / -50 Lab / Micro Data 09/23/24 06:00 09/23/24 06:00 Labs: Laboratory Results - last 24 hr 09/22/24 20:33: WBC 11.6 H, RBC 4.04 L, Hgb 13.2, Hct 39.5, MCV 97.8, MCH 32.7 H, MCHC 33.4, RDW Std Deviation 47.2 H, RDW Coeff of Felix 13.1, Plt Count 259, MPV12.0, Immature Gran % (Auto) 0.400, Neut % (Auto) 69.5, Lymph % (Auto) 18.8 L, Shackelford % (Auto) 7.5, Eos % (Auto) 2.9, Baso % (Auto) 0.9, Absolute Neuts (auto) 8.0 H, Absolute Lymphs (auto) 2.17, Nucleated RBC % 0, Sodium 136, Potassium 5.2H,Chloride 100, Carbon Dioxide 25.5, Anion Gap 11, BUN 13, Creatinine 0.86, Estim Creat Clear Calc 58.83, Est GFR (MDRD) Non-Af 70, BUN/Creatinine Ratio 15.0, Glucose 97, Calcium 8.6, Total Bilirubin 0.31, AST 40 H, ALT 16, Alkaline Phosphatase 87, Total Creatine Kinase 316 H, Total Protein 6.6, Albumin 3.6, Globulin 3.0, Albumin/Globulin Ratio 1.2, Urine Color Cancelled, Urine Clarity Cancelled, Urine pH Cancelled, Ur Specific Bet[place] Cancelled, U Specif Grav (Refrac) Cancelled, Urine Protein Cancelled, Urine Glucose (UA) Cancelled, UrineKetones Cancelled, Urine Occult Blood Cancelled, Urine Nitrite Cancelled, Urine Bilirubin Cancelled, Urine Urobilinogen Cancelled, Ur Leukocyte Esterase Cancelled, Urine RBC Cancelled, Urine WBC Cancelled, Ur Squamous Epith Cells Cancelled, Ur Transition Epith Cell Cancelled, Ur Renal Epithelial Cell Cancelled, Calcium Oxalate Crystal Cancelled, Uric Acid Crystals Cancelled, Triple Phos Crystals Cancelled, Other Crystals Cancelled, Amorphous Sediment Ca ncelled, Urine Bacteria Cancelled, Hyaline Casts Cancelled, Fine Granular Casts Cancelled, Coarse Granular Casts Cancelled, Waxy Casts Cancelled, RBC Casts Cancelled, WBC Casts Cancelled, Urine MucusCancelled, Urine Trichomonas Cancelled, Urine Yeast Cancelled 09/22/24 21:31: Urine Color Straw, Urine Clarity Cloudy, Urine pH 5.0, Ur Specific [place]hesda 1.015, Urine Protein 15 H, Urine Glucose (UA) Normal, Urine Ketones Negative, Urine Occult Blood 10 H, UrineNitrite Positive H, Urine Bilirubin Negative, Urine Urobilinogen Normal, Ur Leukocyte Esterase 500 H, Urine RBC 0-5 SEEN, Urine WBC 50-100 SEEN, Ur Squamous Epith Cells 0-5 SEEN, Urine Bacteria 4+, Urine Mucus 0 SEEN 09/23/24 06:00: WBC 10.3, RBC 3.68 L, Hgb 12.0, Hct 35.9 L, MCV 97.6, MCH 32.6 H, MCHC 33.4, RDW Std Deviation 47.4 H, RDW Coeff of Felix 13.2, Plt Count 241, MPV11.7, Immature Gran % (Auto) 0.400, Neut % (Auto) 70.6 H, Lymph % (Auto) 16.2 L,Shackelford % (Auto) 9.6, Eos % (Auto) 2.4, Baso % (Auto) 0.8, Absolute Neuts (auto) 7.2, Absolute Lymphs (auto) 1.66, Nucleated RBC % 0, Sodium 140, Potassium 4.1, Chloride 105, Carbon Dioxide 24.4, Anion Gap 10, BUN 13, Creatinine 0.71, Estim Creat Clear Calc 59.41, Est GFR (MDRD) Non-Af 87, BUN/Creatinine Ratio 18.3, Glucose 162 H, Calcium 8.0, Total Bilirubin 0.17, AST 24, ALT 13, Alkaline Phosphatase 80, Total Creatine Kinase 271 H, Total Protein 6.2, Albumin 3.4, Globulin 2.8, Albumin/Globulin Ratio 1.2 Micro: Microbiology 09/22/24 20:33 Mucosa - Nose SARS-CoV-2, Influenza & RSV (PCR) - Final Radiography Diagnostic Testing: Radiology Impression Brain CT 09/22/24 20:50 IMPRESSION: No acute intracranial abnormality. Reading Location: [place] [address] Chest X-Ray 09/22/24 20:55 IMPRESSION: No acute cardiopulmonary abnormalities. Reading Location: [place] [address] Physical Exam Const alert and no apparent distress Constitutional Narrative: groggy. afebrile. HEENT head/scalp atraumatic and moist oral mucous membranes Resp normal respiratory effort, no retractions, no use of accessory muscles and clearto auscultation bilaterally Cardio regular rate, regular rhythm, S1 normal heart sound and S2 normal heart sound GI normal to inspection, nondistended, normoactive bowel sounds, soft to palpation,non-tender and non-distended Assessment & Plan Assessment/Plan (1) UTI (urinary tract infection): PLAN: On CTX Follow up UCx (2) Debility: PLAN: Poor baseline performance status that is acutely worsened by the UTI. PT OT eval and treat (3) Elevated CPK: PLAN: Mild elevation Trending down. On IVF PLAN: Plan Chronic conditions: * hypothyroidism: levothyroxine, liothyronine * Depression: escitalopram, quetiapine, clonazepam. * dementia: avoid sedating agents VTE prophylaxis: LMWH Charges/Coding Visit Charges Inpatient E&M: 62697 Subs Hosp L2 09/23/24 1521 Cosigner Signature (if applicable): CC: ~ Signed [facility]06-04-2025 History and physical note Author Aggie Bolton [facility] Note Date/Time September 23, 2024 12:18 am [facility] Medical Records Department [address] [place] [id number] H&P Exam - Hospitalist 09/22/24 2244 MR#: [id number] Acct: [id number] Name: AIDEN FIELDS Rep #:[id number] : 1945 78 From: Aggie Bolton MD PCP: Dr. Erica Richardson, DO Status:ADM IN Location: [place] [address] HPI - General General Date of Admission: 09/22/24 Date of Service: 09/22/24 Chief Complaint: Weakness. HPI Narrative The patient is a 78 y/o F w/ PMHx: HTN, Anxiety and Depression/Mood disorder, Former tobacco use, Former chart reported history EtOH abuse, Hx Frequent falls,Rheumatoid arthritis, Hypothyroidism s/p prior thyroidectomy, GERD, Hx Breast CAunclear type s/p mastectomy in remission, Chart reported history Chronic anemia who presents to the [facility] ED on 09/22/2024 with history of being at home when she was checked on by health aide who noted that she had not been out of bed since at least 8 AM with patient reporting that she been up verylate and was very fatigued sleeping throughout the day with no oral intake prompting eventual transition to the ED given concerns for evaluation. Workup inthe ED included T99.5, heart rate 88, BP 121/98, respiratory rate 16, initially noted to be 72% on room air with improvement to 95% on 1 L nasal cannula, most recent repeat vitals T98.1, heart rate 68, BP 129/75, CBC with WBC 11.6, hemoglobin 13.2, platelet 259 with left shift, CMP with potassium 5.2 however noted to be hemolyzed, BUN/creatinine 13/0.86, GFR 7, AST 40, total creatinine kinase 316, urinalysis noted to be cloudy, urine protein 15, occult blood 10, positive nitrite, leukocyte esterase 500 with urine WBCs 50-100 with 4+ urine bacteria, urine culture pending per ED, chest x-ray with no acute cardiopulmonary findings, CT brain with no acute intracranial findings. In the ED patient ministered 1 L normal saline and Rocephin 1 g IV x 1. PFSH Medical History Anxiety and depression Hypoparathyroidism after procedure Back problem Frequent falls Benzodiazepine dependence Opioid dependence Melanoma Tobacco abuse Hypothyroidism GERD (gastroesophageal reflux disease) Anemia Alcohol abuse Hypertension Multiple rib fractures Subdural hematoma Vitamin D deficiency Skin cancer Rheumatoid arthritis High cholesterol Calcium deficiency Glaucoma Breast cancer Arthritis Home Medications ?Medication ?Instructions ?Recorded ?Last Taken ?Type valacyclovir 1 gram tablet 1,000 mg PO DAILY SHINGLES 08/01/20 11/22/22 History dexamethasone sodium phosphate 0.1 1 drp ophthalmic (e ye) DAILY 03/09/21 11/22/22 History % eye drops glaucoma clonazepam 1 mg tablet 1 mg PO BID #6 tabs 03/03/22 11/22/22 Rx pregabalin 75 mg capsule 75 mg PO TID PAIN #9 caps 11/22/22 Rx amlodipine 5 mg tablet 5 mg PO DAILY 11/22/2211/22 History calcitriol 0.5 mcg capsule 0.5 mcg PO DAILY 11/22/22 0 11/22/22 History cholecalciferol (vitamin D3) 25 25 mcg PO DAILY SUPPLE MENT 11/22/22 11/22/22 History mcg (1,000 unit) capsule escitalopram oxalate 10 mg tablet 10 mg PO DAILY ANXIE TY 11/22/22 11/22/22 History (Lexapro) magnesium oxide 500 mg PO DAILY SUPPLEMENT 0 11/22/22 11/22/22 History meclizine 25 mg tablet 25 mg PO TID Dizziness 11/2211/22/22 History memantine 5 mg tablet 5 mg PO BID 11/22/22 3 History nabumetone 750 mg tablet 750 mg PO BID 11/22/2211/22 History quetiapine 100 mg tablet 25 mg PO DAILY DEPRESSION 11/22/22 History albuterol sulfate 90 mcg/actuation 2 puff inhalation Q 6H PRN 11/23/22 Unknown Rx aerosol inhaler (Proventil HFA) shortness of breath or wheezing #8.5 grams levothyroxine 125 mcg tablet 125 mcg PO DAILY #90 tabs 02/19/23 Unknown Rx acetaminophen 500 mg capsule 500 mg PO BID 05/19/23 Un known History famotidine 20 mg tablet (Pepcid) 20 mg PO QHS 05/19/23 Unknown History polyethylene glycol 3350 17 17 g PO DAILY 05/19/23 Unk nown History gram/dose oral powder (ClearLax) pyridoxine (vitamin B6) 100 mg 100 mg PO DAILY 4 Unknown History tablet levofloxacin 750 mg tablet 750 mg PO DAILY@0600 #6 tab s 05/21/23 Unknown Rx liothyronine 5 mcg tablet 5 mcg PO DAILY 07/04/24 Unkn own History potassium chloride 20 mEq 20 meq PO BID 07/04/24 Unkno wn History tablet,extended release quetiapine 25 mg tablet 25 mg PO QHS 07/04/24 Unknow n History hydrocodone 10 mg-acetaminophen tab PO TID 09/22/24 Un known History 325 mg tablet Allergy/AdvReac Type Severity Reaction Status Date / Time bacitracin (From Neosporin Allergy Unknown Unknown Verified 09/22/24 20:06 ([id number])) neomycin (From Neosporin Allergy Unknown Unknown Verified 09/22/24 20:06 ([id number])) polymyxin B (From Neosporin Allergy Unknown Unknown Verified 09/22/24 20:06 ([id number])) Antihistamines - Alkylamine Allergy PT UNSURE Verified 09/22/24 20:06 OF REACTION diphenhydramine (From Allergy PT UNSURE Verified 09/22/24 20:06 Benadryl) OF REACTION Family History Unknown Thyroid disorder Cancer High cholesterol Arthritis Mother Cancer Diabetes Father , Father at the age of 50 from successful suicide attempt. Suicidal intent Other Alcohol abuse Anxiety Depression Heart disease Hypertension Mental disorder Parkinson disease Psychiatric care Surgical History Status post glaucoma surgery H/O mastectomy H/O thyroidectomy Social History household members: none housing: house Smoking Status: Former smoker second hand exposure: Yes alcohol intake: former substance use type: does not use ROS ROS Narrative Admission Review of Systems: CONSTITUTIONAL: No weight loss, fever, chills, + weakness or fatigue. HEENT: Eyes: No visual loss, blurred vision, double vision or yellow sclerae. Ears, Nose, Throat: No hearing loss, sneezing, congestion, runny nose or sore throat. SKIN: No rash or itching, lesions, wounds except + occasional stage ecchymoses, abrasions. CARDIOVASCULAR: No chest pain, chest pressure or chest discomfort, palpitations,edema, orthopnea, syncopal events. RESPIRATORY: No shortness of breath, cough or sputum, wheezing, hemoptysis. GASTROINTESTINAL: No anorexia, nausea, vomiting or diarrhea, abdominal pain, melena, BRBPR. GENITOURINARY: + Urinary frequency. No dysuria, urgency or retention. NEUROLOGICAL: + Underlying dementia. No headache, dizziness, syncope, paralysis, ataxia, numbness or tingling in the extremities, focal weakness, change in bowel or bladder control, seizure. MUSCULOSKELETAL: + muscle, back pain, joint pain or stiffness. HEMATOLOGIC: No anemia, bleeding or bruising. LYMPHATICS: No enlarged nodes. No history of splenectomy. PSYCHIATRIC: + History of anxiety depression/mood disorder. ENDOCRINOLOGIC: No reports of sweating, cold or heat intolerance. No polyuria orpolydipsia. ALLERGIES: No history of asthma, hives, eczema or rhinitis. Vital Signs Vital Signs Vital Signs: 09/22/24 20:06 09/22/24 20:06 09/22/24 20:12 Temperature 99.5 F H 99.5 F H Temperature Source Oral Oral Pulse Rate 88 67 Respiratory Rate 16 16 Respiratory Effort Normal Respiratory Pattern Normal Blood Pressure 121/98 H 121/98 H Blood Pressure Mean 105 105 Pulse Ox 72 94 Oxygen Delivery Method Room Air Nasal Cannula Oxygen Flow Rate (L/min) 2 09/22/24 21:12 09/22/24 22:00 09/22/24 22:21 Temperature 98.1 F 98.1 F Temperature Source Oral Oral Pulse Rate 65 65 Respiratory Rate 18 12 Respiratory Effort Respiratory Pattern Blood Pressure 116/75 126/74 H Blood Pressure Mean 88 91 Pulse Ox 95 100 95 Oxygen Delivery Method Nasal Cannula Nasal Cannula Room Air Oxygen Flow Rate (L/min) 1 1 09/22/24 22:21 Temperature 98.1 F Temperature Source Pulse Rate 68 Respiratory Rate 12 Respiratory Effort Respiratory Pattern Blood Pressure 129/75 H Blood Pressure Mean 93 Pulse Ox 95 Oxygen Delivery Method Oxygen Flow Rate (L/min) Weight Weight: 178 lb 12.8 oz Body Mass Index (BMI) 28.8 Physical Exam Narrative Physical Examination: General: Awake, alert, oriented to self, place and year but cannot give month but does have underlying dementia, remains cooperative, aide present notes she seems improved from previous as far as weakness, no acute distress. Skin: Normal color, normal turgor, no icterus, no cyanosis except occasional stage ecchymoses, abrasion. HEENT: AT/NC, EOMI, PERRLA, moderately dry MM, no carotid bruits or JVD noted. Lungs: Mildly diminished, greater bases, appropriate effort, no rales, ronchi orwheezing. Heart: Regular rate and rhythm; no gallop, rub audible. Abdomen: Soft, mild suprapubic discomfort with palpation otherwise nontender abdomen, no marked distention, distant BS, no appreciated HSM. Extremities: No cyanosis, no clubbing, mild ankle not markedly pitting edema Neurological: Patient awake, alert, oriented as noted, cognitive function diminished baseline with underlying dementia currently near baseline per discussion with a, pupils equally reactive to light and accommodation, cranial nerves gross normal, moving all 4 extremities, no focal deficits, strength moderately to severely globally decreased Psychiatric: Affect appears flat, fatigued, no acute evidence of depressive or anxiety feelings but does have underlying history. Results Lab / Micro Data 09/22/24 20:33 09/22/24 20:33 Labs: Laboratory Results - last 24 hr 09/22/24 20:33: WBC 11.6 H, RBC 4.04 L, Hgb 13.2, Hct 39.5, MCV 97.8, MCH 32.7 H, MCHC 33.4, RDW Std Deviation 47.2 H, RDW Coeff of Felix 13.1, Plt Count 259, MPV12.0, Immature Gran % (Auto) 0.400, Neut % (Auto) 69.5, Lymph % (Auto) 18.8 L, Shackelford % (Auto) 7.5, Eos % (Auto) 2.9, Baso % (Auto) 0.9, Absolute Neuts (auto) 8.0 H, Absolute Lymphs (auto) 2.17, Nucleated RBC % 0, Sodium 136, Potassium 5.2H, Chloride 100, Carbon Dioxide 25.5, Anion Gap 11, BUN 13, Creatinine 0.86, Estim Creat Clear Calc 58.83, Est GFR (MDRD) Non-Af 70, BUN/Creatinine Ratio 15.0, Glucose 97, Calcium 8.6, Total Bilirubin 0.31, AST 40 H, ALT 16, Alkaline Phosphatase 87, Total Creatine Kinase 316 H, Total Protein 6.6, Albumin 3.6, Globulin 3.0, Albumin/Globulin Ratio 1.2, Urine Color Cancelled, Urine Clarity Cancelled, Urine pH Cancelled, Ur Specific [place] Cancelled, U Specif Grav (Refrac) Cancelled, Urine Protein Cancelled, Urine Glucose (UA) Cancelled, UrineKetones Cancelled, Urine Occult Blood Cancelled, Urine Nitrite Cancelled, Urine Bilirubin Cancelled, Urine Urobilinogen Cancelled, Ur Leukocyte Esterase Cancelled, Urine RBC Cancelled, Urine WBC Cancelled, Ur Squamous Epith Cells Cancelled, Ur Transition Epith Cell Cancelled, Ur Renal Epithelial Cell Cancelled, Calcium Oxalate Crystal Cancelled, Uric Acid Crystals Cancelled, Triple Phos Crystals Cancelled, Other Crystals Cancelled, Amorphous Sediment Cancelled, Urine Bacteria Cancelled, Hyaline Casts Cancelled, Fine Granular Casts Cancelled, Coarse Granular Casts Cancelled, Waxy Casts Cancelled, RBC Casts Cancelled, WBC Casts Cancelled, Urine Mucus Cancelled, Urine Trichomonas Cancelled, Urine Yeast Cancelled 09/22/24 21:31: Urine Color Straw, Urine Clarity Cloudy, Urine pH 5.0, Ur Specific [place] 1.015, Urine Protein 15 H, Urine Glucose (UA) Normal, Urine Ketones Negative, Urine Occult Blood 10 H, Urine Nitrite Positive H, Urine Bilirubin Negative, Urine Urobilinogen Normal, Ur Leukocyte Esterase 500 H, Urine RBC 0-5 SEEN, Urine WBC 50-100 SEEN, Ur Squamous Epith Cells 0-5 SEEN, Urine Bacteria 4+, Urine Mucus 0 SEEN Micro: Microbiology 09/22/24 20:33 Mucosa - Nose SARS-CoV-2, Influenza & RSV (PCR) - Final Imaging Radiology Impression Brain CT 09/22/24 20:50 IMPRESSION: No acute intracranial abnormality. Reading Location: [place] [address] Chest X-Ray 09/22/24 20:55 IMPRESSION: No acute cardiopulmonary abnormalities. Reading Location: [place] [address] Assessment & Plan Assessment/Plan (1) UTI (urinary tract infection): PLAN: Plan The patient is a 78 y/o F w/ PMHx: HTN, Anxiety and Depression/Mood disorder, Former tobacco use, Former chart reported history EtOH abuse, Hx Frequent falls,Rheumatoid arthritis, Hypothyroidism s/p prior thyroidectomy, GERD, Hx Breast CAunclear type s/p mastectomy in remission, Chart reported history Chronic anemia who presents to the [facility] ED on 09/22/2024 with history of being at home when she was checked on by health aide who noted that she had not been out of bed since at least 8 AM with patient reporting that she been up verylate and was very fatigued sleeping throughout the day with no oral intake prompting eventual transition to the ED given concerns for evaluation. #1. Adult FTT, Debility, multifactorial, secondary to Acute Complicated UrinaryTract Infection with history of significant frequent falls and #2: Will admit toMS, UA upon ED evaluation remarkable, pending UCx, will continue judicious hydration, monitor I/Os, continue IV Rocephin w/ transition as able pending sensitivities and speciation. PT/OT/case management consult for discharge planning #2. Mild rhabdomyolysis: Admission with total creatinine kinase only mildly elevated 316, given patient had been in bed laying for more than 12 hours with minimal movement this is not significantly concerning level, will continue to hydrate judiciously and repeat level in the a.m. to be cautious. Offloading with encourage positional changes. #3. Anxiety and depression/mood disorder: Will continue patient home escitalopram, clonazepam with hold parameters as needed for sedation in additionto low-dose Seroquel nightly with hold parameters for sedation also as needed. #4. Dementia unclear type with unclear behavior disturbance history: Complicates presentation, will continue patient home memantine regimen, maintainon fall and aspiration precautions, PT/OT/case management consult for discharge planning. #5. Hypothyroidism: Status post previous thyroidectomy, will continue patient home levothyroxine regimen, also noted to be on liothyronine, clarifying to be certain. #6. Hypertension: Continue home regimen including amlodipine, PRN hydralazine. #7. Former tobacco use: Encourage continued tobacco cessation. #8. Chart reported history of previous alcohol abuse: Per discussion with patient and aid she denies any current ongoing alcohol use, encourage continued sobriety. #9. Rheumatoid arthritis: Noted history, will continue patient home nabumetone home regimen, encourage continued outpatient follow-up with rheumatology as previously arranged. #10. GERD: Will continue patient home famotidine regimen. #11. DVT prophylaxis: Lovenox. #12. CODE STATUS: Per discussion with patient aide her daughter is her healthcare power of estate planning attorney and patient is a full code. Charges/Coding Visit Charges Inpatient E&M: 14364 Init Hosp L3 09/23/24 0018 <Electronically signed by Aggie Bolton MD> Cosigner Signature (if applicable): CC: Dr. Aggie Bolton MD; Dr. Erica Richardson DO~ Signed [facility] Work Phone: [phone] 892-973006-04-2025 Discharge summary Author Alexis Quijano [facility] Note Date/Time September 22, 2024 10:46 pm [facility] Medical Records Department [address] [place] [address] Emergency Department Summary 09/22/24 MR#: [id number] Acct: [id number] Name: AIDEN FIELDS Rep #:[id number] : 1945 78 From: Alexis Quijano MD PCP: Dr. Erica Richardson DO Status:REG ER Location: ED HPI History of Present Illness Chief Complaint: General Illness Narrative Narrative: 78-year-old female who denies significant past medical history presents via EMS from home. Apparently she had a home health aide come to visit her and reportedly patient has not gotten out of bed since 8 AM. She states that she was up late watching TV and has been tired all day so she was sleeping. She denies any pain, no cough or shortness of breath, states she usually ambulates with a walker. It was reported that the home health aide stated that she has not eaten or drank anything today. Patient has not gotten out of bed for 12 hours which is unusual for her. [facility] Medical History Anxiety and depression Hypoparathyroidism after procedure Back problem Frequent falls Benzodiazepine dependence Opioid dependence Melanoma Tobacco abuse Hypothyroidism GERD (gastroesophageal reflux disease) Anemia Alcohol abuse Hypertension Multiple rib fractures Subdural hematoma Vitamin D deficiency Skin cancer Rheumatoid arthritis High cholesterol Calcium deficiency Glaucoma Breast cancer Arthritis Home Medications ?Medication ?Instructions ?Recorded ?Last Taken ?Type valacyclovir 1 gram tablet 1,000 mg PO DAILY SHINGLES 08/01/20 11/22/22 History dexamethasone sodium phosphate 0.1 1 drp ophthalmic (e ye) DAILY 03/09/21 11/22/22 History % eye drops glaucoma clonazepam 1 mg tablet 1 mg PO BID #6 tabs 03/03/22 11/22/22 Rx pregabalin 75 mg capsule 75 mg PO TID PAIN #9 caps 11/22/22 Rx amlodipine 5 mg tablet 5 mg PO DAILY 11/22/2211/22 History calcitriol 0.5 mcg capsule 0.5 mcg PO DAILY 11/22/22 0 11/22/22 History cholecalciferol (vitamin D3) 25 25 mcg PO DAILY SUPPLE MENT 11/22/22 11/22/22 History mcg (1,000 unit) capsule escitalopram oxalate 10 mg tablet 10 mg PO DAILY ANXIE TY 11/22/22 11/22/22 History (Lexapro) magnesium oxide 500 mg PO DAILY SUPPLEMENT 0 11/22/22 11/22/22 History meclizine 25 mg tablet 25 mg PO TID Dizziness 11/2211/22/22 History memantine 5 mg tablet 5 mg PO BID 11/22/22 3 History nabumetone 750 mg tablet 750 mg PO BID 11/22/2211/22 History quetiapine 100 mg tablet 25 mg PO DAILY DEPRESSION 11/22/22 History albuterol sulfate 90 mcg/actuation 2 puff inhalation Q 6H PRN 11/23/22 Unknown Rx aerosol inhaler (Proventil HFA) shortness of breath or wheezing #8.5 grams levothyroxine 125 mcg tablet 125 mcg PO DAILY #90 tabs 02/19/23 Unknown Rx acetaminophen 500 mg capsule 500 mg PO BID 05/19/23 Un known History famotidine 20 mg tablet (Pepcid) 20 mg PO QHS 05/19/23 Unknown History polyethylene glycol 3350 17 17 g PO DAILY 05/19/23 Unk nown History gram/dose oral powder (ClearLax) pyridoxine (vitamin B6) 100 mg 100 mg PO DAILY 4 Unknown History tablet levofloxacin 750 mg tablet 750 mg PO DAILY@0600 #6 tab s 05/21/23 Unknown Rx liothyronine 5 mcg tablet 5 mcg PO DAILY 07/04/24 Unkn own History potassium chloride 20 mEq 20 meq PO BID 07/04/24 Unkno wn History tablet,extended release quetiapine 25 mg tablet 25 mg PO QHS 07/04/24 Unknow n History hydrocodone 10 mg-acetaminophen tab PO TID 09/22/24 Un known History 325 mg tablet Allergy/AdvReac Type Severity Reaction Status Date / Time bacitracin (From Neosporin Allergy Unknown Unknown Verified 09/22/24 20:06 ([id number])) neomycin (From Neosporin Allergy Unknown Unknown Verified 09/22/24 20:06 ([id number])) polymyxin B (From Neosporin Allergy Unknown Unknown Verified 09/22/24 20:06 ([id number])) Antihistamines - Alkylamine Allergy PT UNSURE Verified 09/22/24 20:06 OF REACTION diphenhydramine (From Allergy PT UNSURE Verified 09/22/24 20:06 Benadryl) OF REACTION Family History Unknown Thyroid [...] type: does not use ROS ROS ED ROS Narrative Review of systems from patient is negative, denies any pain, denies fever or chills, no nausea or vomiting, denies any symptoms. Per RN, patient hypoxic, EMS reports patient has not gotten out of bed for 12 hours. EXAM Physical Exam Narrative Exam Narrative: Temperature 99.5 ?F, vital signs noted. Cardiovascular examination regular rateand rhythm. Lungs are clear to auscultation bilaterally. Abdomen soft and nontender with normal active bowel sounds. Abdomen soft and nontender without guarding or rebound. Positive bowel sounds. Slowly moves all extremities but noted generalized weakness on examination. Const Vital Signs: 09/22/24 20:06 09/22/24 20:06 09/22/24 20:12 Temperature 99.5 F H 99.5 F H Temperature Source Oral Oral Pulse Rate 88 67 Respiratory Rate 16 16 Respiratory Effort Normal Respiratory Pattern Normal Blood Pressure 121/98 H 121/98 H Blood Pressure Mean 105 105 Pulse Ox 72 94 Oxygen Delivery Method Room Air Nasal Cannula Oxygen Flow Rate (L/min) 2 09/22/24 21:12 09/22/24 22:00 09/22/24 22:21 Temperature 98.1 F 98.1 F Temperature Source Oral Oral Pulse Rate 65 65 Respiratory Rate 18 12 Respiratory Effort Respiratory Pattern Blood Pressure 116/75 126/74 H Blood Pressure Mean 88 91 Pulse Ox 95 100 95 Oxygen Delivery Method Nasal Cannula Nasal Cannula Room Air Oxygen Flow Rate (L/min) 1 1 09/22/24 22:21 Temperature 98.1 F Temperature Source Pulse Rate 68 Respiratory Rate 12 Respiratory Effort Respiratory Pattern Blood Pressure 129/75 H Blood Pressure Mean 93 Pulse Ox 95 Oxygen Delivery Method Oxygen Flow Rate (L/min) MDM MDM MDM Narrative Medical decision making narrative: Differential diagnosis includes but not limited to dehydration versus infectiouscause for generalized weakness. If she has been laying in bed all day, she may have rhabdomyolysis as well. Patient bolused normal saline. Comprehensive workup was pursued. EKG was obtained and interpreted by myself independently asnormal sinus rhythm at 63 bpm without ectopy or acute ST changes. No STEMI. I reviewed her laboratory work and she has slight leukocytosis of 11.6 which I think is nonspecific, hemoglobin 13.2, hematocrit 39.5, platelet count normal at259. Potassium is slightly elevated at 5.2 but there is slight hemolysis so I do not feel that she needs Kayexalate. CO2 25.5 with BUN of 13 and creatinine 0.86, no dehydration. Glucose normal at 97. LFTs show an AST of 40 which I think is nonspecific, total creatinine kinase slightly elevated at 316. She wasbolused normal saline 1 L intravenously but I do not feel that she is in rhabdomyolysis. Urinalysis was obtained from straight cath and she has positivefor nitrites. Imaging studies performed and CT of the brain shows no acute process, no hemorrhage. Chest x-ray in 1 view interpreted by myself independently shows no consolidation or pneumothorax. I reviewed the radiology report which confirms my independent interpretation. I do not feel that she requires antibiotics. Respiratory swab was obtained and she is negative for COVID, influenza, and RSV. I reviewed the microanalysis of the urine, and treat accordingly for UTI. Attempt will be made to ambulate the patient. If she is unable to ambulate, patient will be discussed with the hospitalist for at least observation. I discussed the patient with the RNs who tried to ambulate her, but she was barelyable to stand. Given her positive nitrites, I will send a urine culture and start her on Rocephin for presumed urinary tract infection as well. I was able to review the microanalysis and she has 4+ bacteria and 50-100 WBCs. Patient discussed with Dr. Bolton for admission to medical surgical floor. Patient is instable condition. History & Record Review Discussion w/independent historian: EMS personnel and Patient Additional record(s) reviewed:: Prior ED visit Lab Data Attestation: I reviewed the patient's lab results. Labs: Laboratory Results - last 24 hr 09/22/24 09/22/24 20:33 21:31 WBC 11.6 H RBC 4.04 L Hgb 13.2 Hct 39.5 MCV 97.8 MCH 32.7 H MCHC 33.4 RDW Std Deviation 47.2 H RDW Coeff of Felix 13.1 Plt Count 259 MPV 12.0 Immature Gran % (Auto) 0.400 Neut % (Auto) 69.5 Lymph % (Auto) 18.8 L Shackelford % (Auto) 7.5 Eos % (Auto) 2.9 Baso % (Auto) 0.9 Absolute Neuts (auto) 8.0 H Absolute Lymphs (auto) 2.17 Nucleated RBC % 0 Sodium 136 Potassium 5.2 H Chloride 100 Carbon Dioxide 25.5 Anion Gap 11 BUN 13 Creatinine 0.86 Estim Creat Clear Calc 58.83 Est GFR (MDRD) Non-Af 70 BUN/Creatinine Ratio 15.0 Glucose 97 Calcium 8.6 Total Bilirubin 0.31 AST 40 H ALT 16 Alkaline Phosphatase 87 Total Creatine Kinase 316 H Total Protein 6.6 Albumin 3.6 Globulin 3.0 Albumin/Globulin Ratio 1.2 Urine Color Cancelled Straw Urine Clarity Cancelled Cloudy Urine pH Cancelled 5.0 Ur Specific Bethesda Cancelled 1.015 U Specif Grav (Refrac) Cancelled Urine Protein Cancelled 15 H Urine Glucose (UA) Cancelled Normal Urine Ketones Cancelled Negative Urine Occult Blood Cancelled 10 H Urine Nitrite Cancelled Positive H Urine Bilirubin Cancelled Negative Urine Urobilinogen Cancelled Normal Ur Leukocyte Esterase Cancelled 500 H Urine RBC Cancelled 0-5 SEEN Urine WBC Cancelled 50-100 SEEN Ur Squamous Epith Cells Cancelled 0-5 SEEN Ur Transition Epith Cell Cancelled Ur Renal Epithelial Cell Cancelled Calcium Oxalate Crystal Cancelled Uric Acid Crystals Cancelled Triple Phos Crystals Cancelled Other Crystals Cancelled Amorphous Sediment Cancelled Urine Bacteria Cancelled 4+ Hyaline Casts Cancelled Fine Granular Casts Cancelled Coarse Granular Casts Cancelled Waxy Casts Cancelled RBC Casts Cancelled WBC Casts Cancelled Urine Mucus Cancelled 0 SEEN Urine Trichomonas Cancelled Urine Yeast Cancelled Radiography Diagnostic Testing: Clinical Impression(s) from Imaging Studies Brain CT 09/22/24 20:50 IMPRESSION: No acute intracranial abnormality. Reading Location: [place] [address] Chest X-Ray 09/22/24 20:55 IMPRESSION: No acute cardiopulmonary abnormalities. Reading Location: [place] [address] Management Discussion w/another healthcare provider: Hospitalist (Dr. Bolton) Discharge Plan Dx/Rx/DC Orders Clinical Impression: Generalized weakness, Fatigue, Unable to ambulate, UTI (urinary tract infection), Elevated CPK Disposition Disposition: [facility] What to do if you have Problems For any increased pain, shortness of breath, bleeding, nausea or vomiting, chestpain, or any unexpected problems, contact your Primary Care Provider. Call [facility] ([phone]) or report to the closest Emergency Room. Call 911 if necessary. 09/22/242245 <Electronically signed by Alexis Quijano MD> Cosigner Signature (if applicable): CC: Dr. Erica Richardson, ~ Signed [facility] Work Phone: 1(374) 612-795606-04-2025 Evaluation note* Diagnosis Onset Date Resolution Status Admit Date Debility acute September 22, 2024 10:45pm Elevated CPK acute September 22 10:45pm Fatigue acute September 22, 2024 10:45pm Generalized weakness acute September 22, 2024 10:45pm Unable to ambulate acute September 222024 10:45pm UTI (urinary tract infection) acute September 22, 2024 10:45pm [facility] Work Phone: 1(167) 228-534606-04-2025 History and physical note [facility] Medical Records Department [address] [place] [address] H&P Exam - Hospitalist 09/22/242243 MR#: [id number] Acct: [id number] Name: AIDEN FIELDS Rep #:[id number] : 1945 78 From: Aggie Bolton MD PCP: Dr. Erica Richardson DO Status:ADM IN Location: [place] [address] HPI - General General Date of Admission: 09/22/24 Date of Service: 09/22/24 Chief Complaint: Weakness. HPI Narrative The patient is a 78 y/o F w/ PMHx: HTN, Anxiety and Depression/Mood disorder, Former tobacco use, Former chart reported history EtOH abuse, Hx Frequent falls,Rheumatoid arthritis, Hypothyroidism s/p prior thyroidectomy, GERD, Hx Breast CAunclear type s/p mastectomy in remission, Chart reported history Chronic anemia who presents to the [facility] ED on 09/22/2024 with history of being at home when she was checked on by health aide who noted that she had not been out of bed since at least 8 AM with patient reporting that she been up verylate and was very fatigued sleeping throughout the day with no oral intake prompting eventual transition to the ED given concerns for evaluation. Workup inthe ED included T99.5, heart rate 88, BP 121/98, respiratory rate 16, initially noted lucille 72% on room air with improvement to 95% on 1 L nasal cannula, most recent repeat vitals T98.1, heart rate 68, BP 129/75, CBC with WBC 11.6, hemoglobin 13.2, platelet 259 with left shift, CMP with potassium 5.2 however noted to be hemolyzed, BUN/creatinine 13/0.86, GFR 7, AST 40, total creatininekinase 316, urinalysis noted to be cloudy, urine protein 15, occult blood 10, positive nitrite, leukocyte esterase 500 with urine WBCs 50-100 with 4+ urine bacteria, urine culture pending per ED, chest x-ray with no acute cardiopulmonary findings, CT brain with no acute intracranial findings. In the ED patient ministered 1 L normal saline and Rocephin 1 g IV x 1. 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 Back problem Frequent falls Benzodiazepine dependence Opioid dependence Melanoma Tobacco abuse Hypothyroidism GERD (gastroesophageal reflux disease) Anemia Alcohol abuse Hypertension Multiple rib fractures Subdural hematoma Vitamin D deficiency Skin cancer Rheumatoid arthritis High cholesterol Calcium deficiency Glaucoma Breast cancer Arthritis Home Medications ?Medication ?Instructions ?Recorded ?Last Taken ?Type valacyclovir 1 gram tablet 1,000 mg PO DAILY SHINGLES 08/01/20 11/22/22 History dexamethasone sodium phosphate 0.1 1 drp ophthalmic (e ye) DAILY 03/09/21 11/22/22 History % eye drops glaucoma clonazepam 1 mg tablet 1 mg PO BID #6 tabs 03/03/22 11/22/22 Rx pregabalin 75 mg capsule 75 mg PO TID PAIN #9 caps 11/22/22 Rx amlodipine 5 mg tablet 5 mg PO DAILY 11/22/2211/22 History calcitriol 0.5 mcg capsule 0.5 mcg PO DAILY 11/22/22 0 11/22/22 History cholecalciferol (vitamin D3) 25 25 mcg PO DAILY SUPPLE MENT 11/22/22 11/22/22 History mcg (1,000 unit) capsule escitalopram oxalate 10 mg tablet 10 mg PO DAILY ANXIE TY 11/22/22 11/22/22 History (Lexapro) magnesium oxide 500 mg PO DAILY SUPPLEMENT 0 11/22/22 11/22/22 History meclizine 25 mg tablet 25 mg PO TID Dizziness 11/2211/22/22 History memantine 5 mg tablet 5 mg PO BID 11/22/22 3 History nabumetone 750 mg tablet 750 mg PO BID 11/22/2211/22 History quetiapine 100 mg tablet 25 mg PO DAILY DEPRESSION 11/22/22 History albuterol sulfate 90 mcg/actuation 2 puff inhalation Q 6H PRN 11/23/22 Unknown Rx aerosol inhaler (Proventil HFA) shortness of breath or wheezing #8.5 grams levothyroxine 125 mcg tablet 125 mcg PO DAILY #90 tabs 02/19/23 Unknown Rx acetaminophen 500 mg capsule 500 mg PO BID 05/19/23 Un known History famotidine 20 mg tablet (Pepcid) 20 mg PO QHS 05/19/23 Unknown History polyethylene glycol 3350 17 17 g PO DAILY 05/19/23 Unk nown History gram/dose oral powder (ClearLax) pyridoxine (vitamin B6) 100 mg 100 mg PO DAILY 4 Unknown History tablet levofloxacin 750 mg tablet 750 mg PO DAILY@0600 #6 tab s 05/21/23 Unknown Rx liothyronine 5 mcg tablet 5 mcg PO DAILY 07/04/24 Unkn own History potassium chloride 20 mEq 20 meq PO BID 07/04/24 Unkno wn History tablet,extended release quetiapine 25 mg tablet 25 mg PO QHS 07/04/24 Unknow n History hydrocodone 10 mg-acetaminophen tab PO TID 09/22/24 Un known History 325 mg tablet Allergy/AdvReac Type Severity Reaction Status Date / Time bacitracin (From Neosporin Allergy Unknown Unknown Verified 09/22/24 20:06 ([id number])) neomycin (From Neosporin Allergy Unknown Unknown Verified 09/22/24 20:06 ([id number])) polymyxin B (From Neosporin Allergy Unknown Unknown Verified 09/22/24 20:06 ([id number])) Antihistamines - Alkylamine Allergy PT UNSURE Verified 09/22/24 20:06 OF REACTION diphenhydramine (From Allergy PT UNSURE Verified 09/22/24 20:06 Benadryl) OF REACTION Family History Unknown Thyroid disorder Cancer High cholesterol Arthritis Mother Cancer Diabetes Father , Father at the age of 50 from successful suicide attempt. Suicidal intent Other Alcohol abuse Anxiety Depression Heart disease Hypertension Mental disorder Parkinson disease Psychiatric care Surgical History Status post glaucoma surgery H/O mastectomy H/O thyroidectomy Social History household members: none housing: house Smoking Status: Former smoker second hand exposure: Yes alcohol intake: former substance use type: does not use ROS ROS Narrative Admission Review of Systems: CONSTITUTIONAL: No weight loss, fever, chills, + weakness or fatigue. HEENT: Eyes: No visual loss, blurred vision, double vision or yellow sclerae. Ears, Nose, Throat: No hearing loss, sneezing, congestion, runny nose or sore throat. SKIN: No rash or itching, lesions, wounds except + occasional stage ecchymoses, abrasions. CARDIOVASCULAR: No chest pain, chest pressure or chest discomfort, palpitations,edema, orthopnea, syncopal events. RESPIRATORY: No shortness of breath, cough or sputum, wheezing, hemoptysis. GASTROINTESTINAL: No anorexia, nausea, vomiting or diarrhea, abdominal pain, melena, BRBPR. GENITOURINARY: + Urinary frequency. No dysuria, urgency or retention. NEUROLOGICAL: + Underlying dementia. No headache, dizziness, syncope, paralysis, ataxia, numbness or tingling in the extremities, focal weakness, change in bowel or bladder control, seizure. MUSCULOSKELETAL: + muscle, back pain, joint pain or stiffness. HEMATOLOGIC: No anemia, bleeding or bruising. LYMPHATICS: No enlarged nodes. No history of splenectomy. PSYCHIATRIC: + History of anxiety depression/mood disorder. ENDOCRINOLOGIC: No reports of sweating, cold or heat intolerance. No polyuria orpolydipsia. ALLERGIES: No history of asthma, hives, eczema or rhinitis. Vital Signs Vital Signs Vital Signs: 09/22/24 20:06 09/22/24 20:06 09/22/24 20:12 Temperature 99.5 F H 99.5 F H Temperature Source Oral Oral Pulse Rate 88 67 Respiratory Rate 16 16 Respiratory Effort Normal Respiratory Pattern Normal Blood Pressure 121/98 H 121/98 H Blood Pressure Mean 105 105 Pulse Ox 72 94 Oxygen Delivery Method Room Air Nasal Cannula Oxygen Flow Rate (L/min) 2 09/22/24 21:12 09/22/24 22:00 09/22/24 22:21 Temperature 98.1 F 98.1 F Temperature Source Oral Oral Pulse Rate 65 65 Respiratory Rate 18 12 Respiratory Effort Respiratory Pattern Blood Pressure 116/75 126/74 H Blood Pressure Mean 88 91 Pulse Ox 95 100 95 Oxygen Delivery Method Nasal Cannula Nasal Cannula Room Air Oxygen Flow Rate (L/min) 1 1 09/22/24 22:21 Temperature 98.1 F Temperature Source Pulse Rate 68 Respiratory Rate 12 Respiratory Effort Respiratory Pattern Blood Pressure 129/75 H Blood Pressure Mean 93 Pulse Ox 95 Oxygen Delivery Method Oxygen Flow Rate (L/min) Weight Weight: 178 lb 12.8 oz Body Mass Index (BMI) 28.8 Physical Exam Narrative Physical Examination: General: Awake, alert, oriented to self, place and year but cannot give month but does have underlying dementia, remains cooperative, aide present notes she seems improved from previous as far as weakness, no acute distress. Skin: Normal color, normal turgor, no icterus, no cyanosis except occasional stage ecchymoses, abrasion. HEENT: AT/NC, EOMI, PERRLA, moderately dry MM, no carotid bruits or JVD noted. Lungs: Mildly diminished, greater bases, appropriate effort, no rales, ronchi orwheezing. Heart: Regular rate and rhythm; no gallop, rub audible. Abdomen: Soft, mild suprapubic discomfort with palpation otherwise nontender abdomen, no marked distention, distant BS, no appreciated HSM. Extremities: No cyanosis, no clubbing, mild ankle not markedly pitting edema Neurological: Patient awake, alert, oriented as noted, cognitive function diminished baseline with underlying dementia currently near baseline per discussion with a, pupils equally reactive to light and accommodation, cranial nerves gross normal, moving all 4 extremities, no focal deficits, strength moderately to severely globally decreased Psychiatric: Affect appears flat, fatigued, no acute evidence of depressive or anxiety feelings butdoes have underlying history. Results Lab / Micro Data 09/22/24 20:33 09/22/24 20:33 Labs: Laboratory Results - last 24 hr 09/22/24 20:33: WBC 11.6 H, RBC 4.04 L, Hgb 13.2, Hct 39.5, MCV 97.8, MCH 32.7 H, MCHC 33.4, RDW Std Deviation 47.2 H, RDW Coeff of Felix 13.1, Plt Count 259, MPV12.0, Immature Gran % (Auto) 0.400, Neut % (Auto) 69.5, Lymph % (Auto) 18.8 L, Shackelford % (Auto) 7.5, Eos % (Auto) 2.9, Baso % (Auto) 0.9, Absolute Neuts (auto) 8.0 H, Absolute Lymphs (auto) 2.17, Nucleated RBC % 0, Sodium 136, Potassium 5.2H,Chloride 100, Carbon Dioxide 25.5, Anion Gap 11, BUN 13, Creatinine 0.86, Estim Creat Clear Calc 58.83, Est GFR (MDRD) Non-Af 70, BUN/Creatinine Ratio 15.0, Glucose 97, Calcium 8.6, Total Bilirubin 0.31, AST 40 H, ALT 16, Alkaline Phosphatase 87, Total Creatine Kinase 316 H, Total Protein 6.6, Albumin 3.6, Globulin 3.0, Albumin/Globulin Ratio 1.2, Urine Color Cancelled, Urine Clarity Cancelled, Urine pH Cancelled, Ur Specific Bethesda Cancelled, U Specif Grav (Refrac) Cancelled, Urine Protein Cancelled, Urine Glucose (UA) Cancelled, UrineKetones Cancelled, Urine Occult Blood Cancelled, Urine Nitrite Cancelled, Urine Bilirubin Cancelled, Urine Urobilinogen Cancelled, Ur Leukocyte Esterase Cancelled, Urine RBC Cancelled, Urine WBC Cancelled, Ur Squamous Epith Cells Cancelled, Ur Transition Epith Cell Cancelled, Ur Renal Epithelial Cell Cancelled, Calcium Oxalate Crystal Cancelled, Uric Acid Crystals Cancelled, Triple Phos Crystals Cancelled, Other Crystals Cancelled, Amorphous Sediment Ca ncelled, Urine Bacteria Cancelled, Hyaline Casts Cancelled, Fine Granular Casts Cancelled, Coarse Granular Casts Cancelled, Waxy Casts Cancelled, RBC Casts Cancelled, WBC Casts Cancelled, Urine MucusCancelled, Urine Trichomonas Cancelled, Urine Yeast Cancelled 09/22/24 21:31: Urine Color Straw, Urine Clarity Cloudy, Urine pH 5.0, Ur Specific Bethesda 1.015, Urine Protein 15 H, Urine Glucose (UA) Normal, Urine Ketones Negative, Urine Occult Blood 10 H, UrineNitrite Positive H, Urine Bilirubin Negative, Urine Urobilinogen Normal, Ur Leukocyte Esterase 500 H, Urine RBC 0-5 SEEN, Urine WBC 50-100 SEEN, Ur Squamous Epith Cells 0-5 SEEN, Urine Bacteria 4+, Urine Mucus 0 SEEN Micro: Microbiology 09/22/24 20:33 Mucosa - Nose SARS-CoV-2, Influenza & RSV (PCR) - Final Imaging Radiology Impression Brain CT 09/22/24 20:50 IMPRESSION: No acute intracranial abnormality. Reading Location: [place] [address] Chest X-Ray 09/22/24 20:55 IMPRESSION: No acute cardiopulmonary abnormalities. Reading Location: [place] [address] Assessment & Plan Assessment/Plan (1) UTI (urinary tract infection): PLAN: Plan The patient is a 78 y/o F w/ PMHx: HTN, Anxiety and Depression/Mood disorder, Former tobacco use, Former chart reported history EtOH abuse, Hx Frequent falls,Rheumatoid arthritis, Hypothyroidism s/p prior thyroidectomy, GERD, Hx Breast CAunclear type s/p mastectomy in remission, Chart reported history Chronic anemia who presents to the [facility] ED on 09/22/2024 with history of being at home when she was checked on by health aide who noted that she had not been out of bed since at least 8 AM with patient reporting that she been up verylate and was very fatigued sleeping throughout the day with no oral intake prompting eventual transition to the ED given concerns for evaluation. #1. Adult FTT, Debility, multifactorial, secondary to Acute Complicated UrinaryTract Infection withhistory of significant frequent falls and #2: Will [facility], UA upon ED evaluation remarkable, pending UCx, will continue judicious hydration, monitor I/Os, continue IV Rocephin w/ transition as able pending sensitivities and speciation. PT/OT/case management consult for discharge planning #2. Mild rhabdomyolysis: Admission with total creatinine kinase only mildly elevated 316, given patient had been in bed laying for more than 12 hours with minimal movement this is not significantly concerning level, will continue to hydrate judiciously and repeat level in the a.m. to be cautious. Offloading with encourage positional changes. #3. Anxiety and depression/mood disorder: Will continue patient home escitalopram, clonazepam with hold parameters as needed for sedation in additionto low-dose Seroquel nightly with hold parameters for sedation also as needed. #4. Dementia unclear type with unclear behavior disturbance history: Complicates presentation, willcontinue patient home memantine regimen, maintainon fall and aspiration precautions, PT/OT/case management consult for discharge planning. #5. Hypothyroidism: Status post previous thyroidectomy, will continue patient home levothyroxine regimen, also noted to be on liothyronine, clarifying to be certain. #6. Hypertension: Continue home regimen including amlodipine, PRN hydralazine. #7. Former tobacco use: Encourage continued tobacco cessation. #8. Chart reported history of previous alcohol abuse: Per discussion with patient and aid she denies any current ongoing alcohol use, encourage continued sobriety. #9. Rheumatoid arthritis: Noted history, will continue patient home nabumetone home regimen, encourage continued outpatient follow-up with rheumatology as previously arranged. #10. GERD: Will continue patient home famotidine regimen. #11. DVT prophylaxis: Lovenox. #12. CODE STATUS: Per discussion with patient aide her daughter is her healthcare power of attorneyand patient is a full code. Charges/Coding Visit Charges Inpatient E&M: 07568 Init Hosp L3 09/23/24 0018 Cosigner Signature (if applicable): CC: Dr. Aggie Bolton MD; Dr. Erica Richardson, DO~ Signed [facility]06-03-2025 Discharge summary [facility] Medical Records Department [address] [place] [address] Emergency Department Summary 09/22/24 MR#: [id number] Acct: [id number] Name: AIDEN FIELDS Rep #:[id number] : 1945 78 From: Alexis Quijano MD PCP: Dr. Erica Richardson, DO Status:REG ER Location: ED HPI History of Present Illness Chief Complaint: General Illness Narrative Narrative: 78-year-old female who denies significant past medical history presents via EMS from home. Apparently she had a home health aide come to visit her and reportedly patient has not gotten out of bed since 8 AM. She states that she was up late watching TV and has been tired all day so she was sleeping.She denies any pain, no cough or shortness of breath, states she usually ambulates with a walker. It was reported that the home health aide stated that she has not eaten or drank anything today. Patient has not gotten out of bed for 12 hours which is unusual for her. [facility] Medical History Anxiety and depression Hypoparathyroidism after procedure Back problem Frequent falls Benzodiazepine dependence Opioid dependence Melanoma Tobacco abuse Hypothyroidism GERD (gastroesophageal reflux disease) Anemia Alcohol abuse Hypertension Multiple rib fractures Subdural hematoma Vitamin D deficiency Skin cancer Rheumatoid arthritis High cholesterol Calcium deficiency Glaucoma Breast cancer Arthritis Home Medications ?Medication ?Instructions ?Recorded ?Last Taken ?Type valacyclovir 1 gram tablet 1,000 mg PO DAILY SHINGLES 08/01/20 11/22/22 History dexamethasone sodium phosphate 0.1 1 drp ophthalmic (e ye) DAILY 03/09/21 11/22/22 History % eye drops glaucoma clonazepam 1 mg tablet 1 mg PO BID #6 tabs 03/03/22 11/22/22 Rx pregabalin 75 mg capsule 75 mg PO TID PAIN #9 caps 11/22/22 Rx amlodipine 5 mg tablet 5 mg PO DAILY 11/22/2211/22 History calcitriol 0.5 mcg capsule 0.5 mcg PO DAILY 11/22/22 0 11/22/22 History cholecalciferol (vitamin D3) 25 25 mcg PO DAILY SUPPLE MENT 11/22/22 11/22/22 History mcg (1,000 unit) capsule escitalopram oxalate 10 mg tablet 10 mg PO DAILY ANXIE TY 11/22/22 11/22/22 History (Lexapro) magnesium oxide 500 mg PO DAILY SUPPLEMENT 0 11/22/22 11/22/22 History meclizine 25 mg tablet 25 mg PO TID Dizziness 11/2211/22/22 History memantine 5 mg tablet 5 mg PO BID 11/22/22 3 History nabumetone 750 mg tablet 750 mg PO BID 11/22/2211/22 History quetiapine 100 mg tablet 25 mg PO DAILY DEPRESSION 11/22/22 History albuterol sulfate 90 mcg/actuation 2 puff inhalation Q 6H PRN 11/23/22 Unknown Rx aerosol inhaler (Proventil HFA) shortness of breath or wheezing #8.5 grams levothyroxine 125 mcg tablet 125 mcg PO DAILY #90 tabs 02/19/23 Unknown Rx acetaminophen 500 mg capsule 500 mg PO BID 05/19/23 Un known History famotidine 20 mg tablet (Pepcid) 20 mg PO QHS 05/19/23 Unknown History polyethylene glycol 3350 17 17 g PO DAILY 05/19/23 Unk nown History gram/dose oral powder (ClearLax) pyridoxine (vitamin B6) 100 mg 100 mg PO DAILY 4 Unknown History tablet levofloxacin 750 mg tablet 750 mg PO DAILY@0600 #6 tab s 05/21/23 Unknown Rx liothyronine 5 mcg tablet 5 mcg PO DAILY 07/04/24 Unkn own History potassium chloride 20 mEq 20 meq PO BID 07/04/24 Unkno wn History tablet,extended release quetiapine 25 mg tablet 25 mg PO QHS 07/04/24 Unknow n History hydrocodone 10 mg-acetaminophen tab PO TID 09/22/24 Un known History 325 mg tablet Allergy/AdvReac Type Severity Reaction Status Date / Time bacitracin (From Neosporin Allergy Unknown Unknown Verified 09/22/24 20:06 ([id number])) neomycin (From Neosporin Allergy Unknown Unknown Verified 09/22/24 20:06 (ass-ucm-fahzd)) polymyxin B (From Neosporin Allergy Unknown Unknown Verified 09/22/24 20:06 (zog-oih-usrda)) Antihistamines - Alkylamine Allergy PT UNSURE Verified 09/22/24 20:06 OF REACTION diphenhydramine (From Allergy PT UNSURE Verified 09/22/24 20:06 Benadryl) OF REACTION Family History Unknown Thyroid [...] type: does not use ROS ROS ED ROS Narrative Review of systems from patient is negative, denies any pain, denies fever or chills, no nausea or vomiting, denies any symptoms. Per RN, patient hypoxic, EMS reports patient has not gotten out of bedfor 12 hours. EXAM Physical Exam Narrative Exam Narrative: Temperature 99.5 ?F, vital signs noted. Cardiovascular examination regular rateand rhythm. Lungs are clear to auscultation bilaterally. Abdomen soft and nontender with normal active bowel sounds. Abdomen soft and nontender without guarding or rebound. Positive bowel sounds. Slowly moves all extremities but noted generalized weakness on examination. Const Vital Signs: 09/22/24 20:06 09/22/24 20:06 09/22/24 20:12 Temperature 99.5 F H 99.5 F H Temperature Source Oral Oral Pulse Rate 88 67 Respiratory Rate 16 16 Respiratory Effort Normal Respiratory Pattern Normal Blood Pressure 121/98 H 121/98 H Blood Pressure Mean 105 105 Pulse Ox 72 94 Oxygen Delivery Method Room Air Nasal Cannula Oxygen Flow Rate (L/min) 2 09/22/24 21:12 09/22/24 22:00 09/22/24 22:21 Temperature 98.1 F 98.1 F Temperature Source Oral Oral Pulse Rate 65 65 Respiratory Rate 18 12 Respiratory Effort Respiratory Pattern Blood Pressure 116/75 126/74 H Blood Pressure Mean 88 91 Pulse Ox 95 100 95 Oxygen Delivery Method Nasal Cannula Nasal Cannula Room Air Oxygen Flow Rate (L/min) 1 1 09/22/24 22:21 Temperature 98.1 F Temperature Source Pulse Rate 68 Respiratory Rate 12 Respiratory Effort Respiratory Pattern Blood Pressure 129/75 H Blood Pressure Mean 93 Pulse Ox 95 Oxygen Delivery Method Oxygen Flow Rate (L/min) MDM MDM MDM Narrative Medical decision making narrative: Differential diagnosis includes but not limited to dehydration versus infectiouscause for generalized weakness. If she has been laying in bed all day, she may have rhabdomyolysis as well. Patient bolused normal saline. Comprehensive workup was pursued. EKG was obtained and interpreted by myself independently asnormal sinus rhythm at 63 bpm without ectopy or acute ST changes. No STEMI. I reviewed her laboratory work and she has slight leukocytosis of 11.6 which I think is nonspecific, [id number], hematocrit 39.5, platelet count normal at259. Potassium is slightly elevated at 5.2 but thereis slight hemolysis so I do not feel that she needs Kayexalate. CO2 25.5 with BUN of 13 and creatinine 0.86, no dehydration. Glucose normal at 97. LFTs show an AST of 40 which I think is nonspecific,total creatinine kinase slightly elevated at 316. She wasbolused normal saline 1 L intravenously but I do not feel that she is in rhabdomyolysis. Urinalysis was obtained from straight cath and she has positivefor nitrites. Imaging studies performed and CT of the brain shows no acute process, no hemorrhage. Chest x-ray in1 view interpreted by myself independently shows no consolidation or pneumothorax. I reviewed the radiology report which confirms my independent interpretation. I do not feel that she requires antibiotics. Respiratory swab was obtained and she is negative for COVID, influenza, and RSV. I reviewed the microanalysis of the urine, and treat accordingly for UTI. Attempt will be made to ambulate the patient. If she is unable to ambulate, patient will be discussed with the hospitalist for at least observation. I discussed the patient with the RNs who tried to ambulate her, but she was b arelyable to stand. Given her positive nitrites, I will send a urine culture and start her on Rocephin for presumed urinary tract infection as well. I was able to review the microanalysis and she has4+ bacteria and 50-100 WBCs. Patient discussed with Dr. Bolton for admission to medical surgical floor. Patient is instable condition. History & Record Review Discussion w/independent historian: EMS personnel and Patient Additional record(s) reviewed:: Prior ED visit Lab Data Attestation: I reviewed the patient's lab results. Labs: Laboratory Results - last 24 hr 09/22/24 09/22/24 20:33 21:31 WBC 11.6 H RBC 4.04 L Hgb 13.2 Hct 39.5 MCV 97.8 MCH 32.7 H MCHC 33.4 RDW Std Deviation 47.2 H RDW Coeff of Felix 13.1 Plt Count 259 MPV 12.0 Immature Gran % (Auto) 0.400 Neut % (Auto) 69.5 Lymph % (Auto) 18.8 L Shackelford % (Auto) 7.5 Eos % (Auto) 2.9 Baso % (Auto) 0.9 Absolute Neuts (auto) 8.0 H Absolute Lymphs (auto) 2.17 Nucleated RBC % 0 Sodium 136 Potassium 5.2 H Chloride 100 Carbon Dioxide 25.5 Anion Gap 11 BUN 13 Creatinine 0.86 Estim Creat Clear Calc 58.83 Est GFR (MDRD) Non-Af 70 BUN/Creatinine Ratio 15.0 Glucose 97 Calcium 8.6 Total Bilirubin 0.31 AST 40 H ALT 16 Alkaline Phosphatase 87 Total Creatine Kinase 316 H Total Protein 6.6 Albumin 3.6 Globulin 3.0 Albumin/Globulin Ratio 1.2 Urine Color Cancelled Straw Urine Clarity Cancelled Cloudy Urine pH Cancelled 5.0 Ur Specific Bethesda Cancelled 1.015 U Specif Grav (Refrac) Cancelled Urine Protein Cancelled 15 H Urine Glucose (UA) Cancelled Normal Urine Ketones Cancelled Negative Urine Occult Blood Cancelled 10 H Urine Nitrite Cancelled Positive H Urine Bilirubin Cancelled Negative Urine Urobilinogen Cancelled Normal Ur Leukocyte Esterase Cancelled 500 H Urine RBC Cancelled 0-5 SEEN Urine WBC Cancelled 50-100 SEEN Ur Squamous Epith Cells Cancelled 0-5 SEEN Ur Transition Epith Cell Cancelled Ur Renal Epithelial Cell Cancelled Calcium Oxalate Crystal Cancelled Uric Acid Crystals Cancelled Triple Phos Crystals Cancelled Other Crystals Cancelled Amorphous Sediment Cancelled Urine Bacteria Cancelled 4+ Hyaline Casts Cancelled Fine Granular Casts Cancelled Coarse Granular Casts Cancelled Waxy Casts Cancelled RBC Casts Cancelled WBC Casts Cancelled Urine Mucus Cancelled 0 SEEN Urine Trichomonas Cancelled Urine Yeast Cancelled Radiography Diagnostic Testing: Clinical Impression(s) from Imaging Studies Brain CT 09/22/24 20:50 IMPRESSION: No acute intracranial abnormality. Reading Location: [id number] Chest X-Ray 09/22/24 20:55 IMPRESSION: No acute cardiopulmonary abnormalities. Reading Location: [id number] Management Discussion w/another healthcare provider: Hospitalist (Dr. Bolton) Discharge Plan Dx/Rx/DC Orders Clinical Impression: Generalized weakness, Fatigue, Unable to ambulate, UTI (urinary tract infection), Elevated CPK Disposition Disposition: Acute Care Hospital [facility] What to do if you have Problems For any increased pain, shortness of breath, bleeding, nausea or vomiting, chestpain, or any unexpected problems, contact your Primary Care Provider. Call [facility] ([phone]) or report tothe closest Emergency Room. Call 911 if necessary. 09/22/242245 Cosigner Signature (if applicable): CC: Dr. Erica Richardson DO ~ Signed [facility]06-03-2025 Radiology Diagnostic study note [facility] Imaging Services [address] [place], [place] [address] Chest 1 View (Portable) MR#: [id number] Acct: [id number] Name: AIDEN FIELDS Rep #: [id number] : 1945 F 78 From: Gui Mullen MD PCP: Dr. Erica Richardson DO Status: REG ER Study:Chest 1 View (Portable) Date of Exam: 09/22/24 Exam# [id number] Ordering Dr: Alexis Quijano MD PROCEDURE: CHEST 1 VIEW (PORTABLE) 09/22/2024 REASON FOR EXAM: SHORTNESS OF BREATH TECHNIQUE: Frontal view of the chest. COMPARISON: 07/04/2024. FINDINGS: The heart is normal in size. Right chest Port-A-Cath. The lungs are clear. Right humeral plate and screw fixation. Left rib plate and screw fixation. RAD/Chest 1 View (Portable) IMPRESSION: No acute cardiopulmonary abnormalities. Reading Location: [id number] CC: Dr. Alexis Quijano MD; Dr. Erica Richardson DO ~ Bulk Fluids Handler: Signed [facility]06-03-2025 Radiology Diagnostic study note [facility] Imaging Services [address] [place], [place] [id number] Brain/Head without Contrast MR#: [id number] Acct: [id number] Name: AIDEN FIELDS Rep #: [id number] : 1945 F 78 From: Gui Mullen MD PCP: Dr. Erica Richardson DO Status: REG ER Study:Brain/Head without Contrast Date of Exa m: 09/22/24 Exam# [id number] Ordering Dr: Alexis Quijano MD PROCEDURE: BRAIN/HEAD WITHOUT CONTRAST 09/22/2024 REASON FOR EXAM: WEAKNESS TECHNIQUE: Head CT without intravenous contrast. Coronal and Sagittal reconstruction serieswere provided. One or more dose reduction techniques were used (e.g., Automated exposure control, adjustment of the mA and/or kV according to patient size, use of iterative reconstruction technique. RADIATION DOSE SUMMARY: CTDlvol: 44.99 mGy DLP: 897.35 mGycm COMPARISON: 08/20/2023. FINDINGS: Jgfrylpw-dv-hgseeo global parenchymal atrophy. Periventricular white matter hypodensity likely representing chronic microvascular ischemia. No evidence of acute hemorrhage or infarction. No extra- axial blood or fluid collections. The paranasal sinuses are clear. The mastoid air cells are well aerated. The calvarial vault and skull base are intact. CT/Brain/Head without Contrast IMPRESSION: No acute intracranial abnormality. Reading Location: [id number] CC: Dr. Alexis Quijano MD; Dr. Erica Richardson DO ~ Bulk Fluids Handler: Signed [facility]03-15-2025 Radiology Diagnostic study note [facility] Imaging Services [address] [place] [address] Chest PA and Lateral MR#: [id number] Acct: [id number] Name: AIDEN FIELDS Rep #: [id number] : 1945 F 78 From: Abhi Carrington DO PCP: Dr. Erica Richardson DO Status: REG ER Study:Chest PA and Lateral Date of Exam: 07/04/24 Exam# [id number] Ordering Dr: Froy Cameron DO PROCEDURE: CHEST [...] Cameron DO; Dr. Erica Richardson DO ~ Bulk Fluids Handler: Signed [facility]04-30-2024 Discharge summary [facility] August 20, 2023 4:47pm Note Date/Time August 20, 2023 1:0 3pm [facility] Medical Records Department [address] [place] [address] Emergency Department Summary 08/20/23 MR#: [id number] Acct: [id number] Name: LIVEMARIELENAAIDEN Consuelo Rep #:[id number] : 1945 77 From: Seb Nguyen PCP: Dr. Erica Richardson DO Status:REG ER Location: ED HPI History of Present Illness [facility] Medical History Alcohol abuse Anemia Anxiety and [...] Unknown Unknown Verified 08/20/23 12:28 [From Neosporin (bha-iif-ntjos)] neomycin Allergy Unknown Unknown Verified 08/20/23 12:28 [From Neosporin (psj-ovi-tzuka)] polymyxin B Allergy Unknown Unknown Verified 08/20/23 12:28 [From Neosporin (tsu-kvu-bghiw)] Antihistamines - Alkylamine Allergy PT UNSURE Verified [...] Oxygen Delivery Method Room Air Room Air MDM MDM MDM Narrative Medical decision making narrative: HISTORY OF [...] History obtained from others: none Consults: none [facility] Narrative: The patient was hemodynamically stable, afebrile [...] Discharge home This note was generated with [employer] dictation software. It may contain incorrectwords, spelling, [...] your Primary Care Provider. Call [facility] ([phone]) or report to the closest Emergency Room. Call 911 if necessary. 08/20/23 1647 <Electronically signed by Seb Bautista DO> Cosigner Signature (if applicable): CC: Dr. Erica Richardson, ~ Signed [facility] Work Phone: 1(489) 504-909601-30-2024 Consult note Author Aryan Harris [facility] May 21, 2023 10:55am Note Date/Time May 21, 2023 1 0:56am [facility] Medical Records Department [address] [place] [address] Counseling Note - Pharmacy 05/21/23 1055 MR#: [id number] Acct: [id number] Name: AIDEN FIELDS Rep #:[id number] : 1945 77 From: Aryan Harris PCP: Dr. Erica Richardson DO Status:ADM IN Location: [place] 626354-1 Pharmacy [facility] has performed discharge medication [...] 05/21/23 05/21/23 1055 <Electronically signed by Aryan dailey> Date _ Aryan Rosenthal Signature (if applicable): Date CC: ~ Signed [facility] Work Phone: 1(769) 386-373101-30-2024 Discharge summary Author Froy Velázquez [facility] May 21, 2023 10:34am Note Date/Time May 21, 2023 1 0:31am [facility] Medical Records Department [address] [place] [address] Discharge Summary 05/21/23 1030 MR#: [id number] Acct: [id number] Name: AIDEN FIELDS Rep #:[id number] : 1945 77 From: Froy Velázquez DO PCP: Dr. Erica Richardson DO Status:ADM [facility] Prov[facility] Date of Admission: 05/19/23 Primary Care [...] with rheumatology as needed. DC home with [facility]. Medications at Discharge Home Medications potassium chloride [...] Health Service Charges/Coding Visit Charges Inpatient E&M: 83688 Disch Hosp >30min 05/21/23 1034 <Electronically signed by Froy Velázquez DO> Cosigner Signature (if applicable): CC: Dr. Froy Velázquez DO; Dr. Erica Richardson DO~ Signed [facility] Work Phone: 1(304) 216-677201-30-2024 Progress note Author Froy Velázquez [facility] May 21, 2023 10:30am Note Date/Time May 21, 2023 8 :27am [facility] Medical Records Department [address] [place], [place] [address] [address] Progress Note - Hospitalist 05/21/23822 MR#: [id number] Acct: [id number] Name: AIDEN FIELDS Rep #:[id number] : 1945 77 From: Froy Velázquez DO PCP: Dr. Erica Richardson DO Status:ADM IN Location: [place] [address]-1 Reason for Visit Reason for Visit: Diagnoses [...] with rheumatology as needed. DC home with [facility]. 05/21/23 1030 <Electronically signed by Froy Velázquez DO> Cosigner Signature (if applicable): CC: ~ Signed [facility] Work Phone: 1(220) 248-554501-29-2024 Progress note Author Froy Velázquez [facility] May 20, 2023 2:08pm Note Date/Time May 20, 2023 9 :07am [facility] Medical Records Department [address] [place] [address] Progress Note - Hospitalist 05/20/23 0900 MR#: [id number] Acct: [id number] Name: AIDEN FIELDS Rep #:[id number] : 1945 77 From: Froy Velázquez DO PCP: Dr. Erica Richardson, Status:ADM IN Location: [place] [address]26354-1 Subjective Subjective Feels well. No issues overnight. [...] 76.9 H, Lymph % (Auto) 9.6 L, Shackelford % (Auto) 10.8 H, Eos % (Auto) [...] Hand Blood Culture - Preliminary GNR lactose glove parts inspector 05/19/23 00:00 Urine, Clean Catch Legionella Antigen - Final 05/19/23 00:00 Urine, Clean Catch Streptococcus pneumoniae Antigen (M - Final 05/18/23 23:43 Mucosa - Nasopharyngeal SARS-CoV-2, Influenza & RSV (PCR) - Final Radiography Diagnostic Testing: Radiology Impression Chest X-Ray 05/19/23 06:07 IMPRESSION: Cardiomegaly. Electronically Signed: Arpita Belcher MD at 9:59 EST , Rhythm Strip Rhythm Strip: Sinus Tach [...] prophylaxis: Heparin. Charges/Coding Visit Charges Inpatient E&M: 02081 Subs Hosp L2 05/20/23 4976 <Electronically signed by Froy Jopperi DO> Cosigner Signature (if applicable): CC: ~ Signed [facility] Work Phone: 1(662) 318-673001-28-2024 Progress note Author Vernon Osman [facility] May 19, 2023 8:02am Note Date/Time May 19, 2023 7 :06am [facility] Medical Records Department [address] [place] [address] Progress Note 05/19/23 0706 MR#: [id number] Acct: [id number] Name: AIDEN FIELDS Rep #:[id number] : 1945 77 From: Vernon Osman MD PCP: Dr. Erica Richardson, DO Status:ADM IN Location: [place] [address]354-1 Progress Note Patient is a 77-year-old lady [...] Cosigner Signature (if applicable): CC: ~ Signed [facility] Work Phone: 1(163) 446-767201-28-2024 Discharge summary Author Jorge Cardona [facility] May 19, 2023 2:16am Note Date/Time May 19, 2023 1 2:30am [facility] Medical Records Department [address] [place] [address] Emergency Department Summary 05/19/23 MR#: [id number] Acct: [id number] Name: AIDEN FIELDS Rep #:[id number] : 1945 77 From: Jorge Cardona MD [...] hypoxia due to rhinovirus.) Recent Illness/Hospitalization: No [facility] Medical History (Updated 05/19/23 @ 02:16 by [...] Unknown Unknown Verified 05/18/23 23:29 [From Neosporin (ueg-brq-mxvui)] neomycin Allergy Unknown Unknown Verified 05/18/23 23:29 [From Neosporin (caz-jwh-bpdgg)] polymyxin B Allergy Unknown Unknown Verified 05/18/23 23:29 [From Neosporin (mhq-exw-hcdyg)] Antihistamines - Alkylamine Allergy PT UNSURE Verified [...] 89.8 H Lymph % (Auto) 6.3 L Shackelford % (Auto) 2.4 Eos % (Auto) 0.3 [...] Clarity Cloudy Urine pH 6.0 Ur Specific Bethesda 1.010 Urine Protein 100 H Urine Glucose [...] Eliel Christensen, DO at 0:46 EST , Radiology report was reviewed. Rhythm Strip Rhythm Strip: Sinus Tach Rate: 119 EKG Initial EKG: Attestation: I personally reviewed and interpreted this EKG as follows: Interpretation: Sinus Tachycardia (Rate is 111. NM interval is 114 ms. Cures duration 70 ms. QT duration is 298 ms. [place] is normal. Computer is reading ST-T wave [...] with treatment for hypertension), Discussing w/Patient &/or Family/Expander Machine Operator, Discussing w/Consultants and Arranging Admission or Transfer Discharge Plan Dx/Rx/DC Orders Clinical Impression: Acute hypoxic respiratory failure, Pyuria, SIRS (systemic inflammatory responsesyndrome), Encephalopathy due to infection, Ketosis, Acute hypotension, Creatinine elevation Disposition Disposition: [facility] What to do if you have Problems For any increased pain, shortness of breath, bleeding, nausea or vomiting, chestpain, or any unexpected problems, contact your Primary Care Provider. Call [facility] ([phone]) or report to the closest Emergency Room. Call 911 if necessary. 05/19/23 0216 <Electronically signed by Jorge Cardona MD> Cosigner Signature (if applicable): CC: Dr. Erica Richardson, ~ Signed [facility] Work Phone: 1([phone]) 677-526701-28-2024 History and physical note Author Aggie Bolton [facility] May 19, 2023 1:45am Note Date/Time May 19, 2023 1 :39am [facility] Medical Records Department [address] [place] [address] H&P Exam - Hospitalist 05/19/23 0135 MR#: [id number] Acct: [id number] Name: AIDEN FIELDS Rep #:[id number] : 1945 77 From: Aggie Bolton MD PCP: Dr. Erica Richardson DO Status:REG ER Location: ED HPI - [...] of prior records who presents to the [facility] ED on 05/19/23 with significant encephalopathy [...] and azithromycin 500 mg IV x 1. [facility] (Updated 05/19/23 @ 01:44 by [...] Unknown Unknown Verified 05/18/23 23:29 [From Neosporin (tlx-qum-tfgos)] neomycin Allergy Unknown Unknown Verified 05/18/23 23:29 [From Neosporin (olh-hup-rrjyf)] polymyxin B Allergy Unknown Unknown Verified 05/18/23 23:29 [From Neosporin (hqe-blk-zrmyt)] Antihistamines - Alkylamine Allergy PT UNSURE Verified [...] 89.8 H, Lymph % (Auto) 6.3 L, Shackelford % (Auto) 2.4, Eos % (Auto) 0.3, [...] Urine Clarity Cloudy, Urine pH6.0, Ur Specific Bethesda 1.010, Urine Protein 100 H, Urine Glucose [...] review of prior recordswho presents to the [facility] ED [facility] 05[facility]19[facility]23 with significant encephalopathy [...] prophylaxis: Heparin. Charges/Coding Visit Charges Inpatient E&M: 26813 Init Hosp L3 05/19/23 0145 <Electronically signed by Aggie Bolton MD> Cosigner Signature (if applicable): CC: Dr. Aggie Bolton MD; Dr. Erica Richardson DO~ Signed [facility] Work Phone: 1([phone]) 330-771201-28-2024 Discharge summary Author Jorge Cardona [facility] May 19, 2023 2:16am Note Date/Time May 19, 2023 1 2:30am [facility] Medical Records Department [address] [place] [address] Emergency Department Summary 05/19/23 MR#: [id number] Acct: [id number] Name: AIDEN FIELDS Rep #:[id number] : 1945 77 From: Jorge Cardona MD [...] due to rhinovirus.) Recent Illness/Hospitalization: No PFSH PFSH Medical History (Updated 05/19/23 @ 02:16 by [...] Unknown Unknown Verified 05/18/23 23:29 [From Neosporin (jdm-iyu-bicqr)] neomycin Allergy Unknown Unknown Verified 05/18/23 23:29 [From Neosporin (rdt-agq-llzoc)] polymyxin B Allergy Unknown Unknown Verified 05/18/23 23:29 [From Neosporin (awq-akz-myoeu)] Antihistamines - Alkylamine Allergy PT UNSURE Verified [...] 89.8 H Lymph % (Auto) 6.3 L Shackelford % (Auto) 2.4 Eos % (Auto) 0.3 [...] Clarity Cloudy Urine pH 6.0 Ur Specific Bethesda 1.010 Urine Protein 100 H Urine Glucose [...] follows: Interpretation: Sinus Tachycardia (Rate is 111. NM interval is 114 ms. Cures duration 70 ms. QT duration is 298 ms. [place] is normal. Computer is reading ST-T wave [...] with treatment for hypertension), Discussing w/Patient &/or Family/Expander Machine Operator, Discussing w/Consultants and Arranging Admission or Transfer Discharge Plan Dx/Rx/DC Orders Clinical Impression: Acute hypoxic respiratory failure, Pyuria, SIRS (systemic inflammatory responsesyndrome), Encephalopathy due to infection, Ketosis, Acute hypotension, Creatinine elevation Disposition Disposition: Acute Care Hospital [facility] What to do if you have Problems For any increased pain, shortness of breath, bleeding, nausea or vomiting, chestpain, or any unexpected problems, contact your Primary Care Provider. Call [facility] ([phone]) or report to the closest Emergency Room. Call 911 if necessary. 05/19/23215 <Electronically signed by Jorge Cardona MD> Cosigner Signature (if applicable): CC: Dr. Erica Richardson, DO ~ Signed [facility] Work Phone: 1(949) 847-136612-12-2023 NoteHNO ID: [id number] Author: Radha Suarez, RN Service: ? Author Type: Registered Nurse Type: Progress Notes Filed: 04/02/2023 2:59 PM Note Text: Patient is here for IVAD port flush per Nursing [place] protocol. IVAD is located in right upper chest. Site cleansed with Chloraprep IVAD accessed with a #20 gauge 3/4 non-coring Gripper needle Blood Return: Good Flushed with: 20 ml Normal Saline and 5 ml Heparin Lock Flush Non-coring needle removed. Paper tape applied to puncture site. Port site negative for redness, edema or tenderness. Patient tolerated procedure well.[facility]08-04-2023 Miscellaneous Notes* Telephone Encounter - Melissa Sprague [...] as discussed during visit. [facility] History and physical note Author Bandar Chanel [facility] November 22, 2022 7:40pm Note Date/Time November 22, 2022 6:0 8pm [facility] Medical Records Department [address] [place] [address] H&P Exam - Hospitalist 11/22/22 1804 MR#: [id number] Acct: [id number] Name: AIDEN FIELDS Rep #:[id number] : 1945 77 From: Bandar Mckenna PCP: Dr. 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 [facility] Medical History Alcohol abuse Alcohol intoxication [...] Unknown Unknown Verified 11/22/22 12:44 [From Neosporin (vxr-dac-eutph)] neomycin Allergy Unknown Unknown Verified 11/22/22 12:44 [From Neosporin (pwo-pww-epecm)] polymyxin B Allergy Unknown Unknown Verified 11/22/22 12:44 [From Neosporin (wcy-jnr-eqobm)] Antihistamines - Alkylamine Allergy PT UNSURE Verified [...] (Auto) 64.5, Lymph % (Auto) 15.4 L, Shackelford % (Auto) 12.3 H, Eos % (Auto) [...] shock if needed Total time spent in mpsx-qs-dhzs encounter in discussion of advanced directive 17 [...] (Auto) 64.5, Lymph % (Auto) 15.4 L, Sh[place]elford % (Auto) 12.3 H, Eos % (Auto) [...] Signed: Franki Glez MD at 15:33 EDT Reading Location ID and State: [address] [place] [address] , Service support , Charges/Coding Visit Charges Inpatient E&M: 59213 Init Hosp L3 Procedures Hospitalists Procedures: 58796 Advncd Care Plan 30 Min 11/22/22 1940 <Electronically signed by Bandar Chanel MD> Cosigner Signature (if applicable): CC: Dr. Erica Richardson DO; Dr. Bandar Chanel MD~ Signed [facility] Work Phone: 1(858) 394-725408-03-2023 Discharge summary Author Katie Randle [facility] November 22, 2022 4:54pm Note Date/Time November 22, 2022 1:0 9pm [facility] Medical Records Department [address] [place] [address] Emergency Department Summary 11/22/22 MR#: [id number] Acct: [id number] Name: AIDEN FIELDS Rep #:[id number] : 1945 77 From: Katie Nguyen PCP: [...] other complaints or concerns at this time. [facility] Medical History Alcohol abuse Alcohol intoxication Anemia [...] Unknown Unknown Verified 11/22/22 12:44 [From Neosporin (uwa-zik-oeaag)] neomycin Allergy Unknown Unknown Verified 11/22/22 12:44 [From Neosporin (wtl-qof-hpmsa)] polymyxin B Allergy Unknown Unknown Verified 11/22/22 12:44 [From Neosporin (sql-mnl-wpjhu)] Antihistamines - Alkylamine Allergy PT UNSURE Verified [...] her renal function is normal, no significant Brohard abnormalities and she has a mild anemia [...] (Auto) 64.5 Lymph % (Auto) 15.4 L [place]ack[place] % (Auto) 12.3 H Eos % (Auto) [...] Provider] - Disposition Disposition: Acute Care Hospital [facility] What to do if you have Problems For any increased pain, shortness of breath, bleeding, nausea or vomiting, chestpain, or any unexpected problems, contact your Primary Care Provider. Call [facility] ([phone]) or report to the closest Emergency Room. Call 911 if necessary. 11/22/22 1654 <Electronically signed by Katie Randle DO> Cosigner Signature (if applicable): CC: Dr. Erica Richardson DO ~ Signed [facility] Work Phone: [phone]) 260-674308-03-2023 Discharge summary Author Katie Randle [facility] November 22, 2022 4:54pm Note Date/Time November 22, 2022 1:0 9pm [facility] Medical Records Department [address] [place] [address] Emergency Department Summary 11/22/22 MR#: [id number] Acct: [id number] Name: AIDEN FIELDS Rep #:[id number] : 1945 77 From: Katie Nguyen PCP: Dr. Erica Richardson DO Status:[facility] ER Location: ED HPI History of Present [...] other complaints or concerns at this time. [facility] Medical History Alcohol abuse Alcohol intoxication Anemia [...] Unknown Unknown Verified 11/22/22 12:44 [From Neosporin (dqp-bvz-pwobk)] neomycin Allergy Unknown Unknown Verified 11/22/22 12:44 [From Neosporin (bsj-yhn-bdiso)] polymyxin B Allergy Unknown Unknown Verified 11/22/22 12:44 [From Neosporin (dxn-urr-kvmeh)] Antihistamines - Alkylamine Allergy PT UNSURE Verified [...] her renal function is normal, no significant Christa abnormalities and she has a mild anemia [...] (Auto) 64.5 Lymph % (Auto) 15.4 L [place] % (Auto) 12.3 H Eos % (Auto) [...] Provider] - Disposition Disposition: Acute Care Hospital [facility] What to do if you have Problems For any increased pain, shortness of breath, bleeding, nausea or vomiting, chestpain, or any unexpected problems, contact your Primary Care Provider. Call [facility] ([phone]) or report to the closest Emergency Room. Call 911 if necessary. 11/22/22 1654 <Electronically signed by Katie Randle DO> Cosigner Signature (if applicable): CC: Dr. Erica Richardson DO ~ Signed [facility] Work Phone: [phone]) 360-263508-03-2023 History of Present illness Narrative* Katarzyna Nance, RT(R) - 11/22/2022 12:00 PM EDT Radiology [...] PERIPHERAL IV DATA: Not applicable SIGNED BY: YOIS Ryan) November 22, 2022 12:08 PM documented in this encounterGreene [facility]08-03-2023 NoteHNO ID: [id number] Author: Katarzyna Nance RT(R) Service: Radiology Author [...] PERIPHERAL IV DATA: Not applicable SIGNED BY: Katarzyna Nance, RT(R) November 22, 2022 12:08 [facility]08-03-2023 NoteHNO ID: [id number] Author: Eliel Blount APRN.ROLL EDGE MACHINE OPERATOR Service: ? Author Type: Nurse Practitioner Type: [...] RAD W/AX LYMPH NOD W/WO PECT/ANAID MIN 09-04-12 left OPEN TREATMENT PROXIMAL HUMERAL FRACTURE Right [...] - Alkylamine, Benadryl [Diphenhydramine Hcl], and Neosporin [Ifwrmfnn-Kejqiriakv-Bojlxcrlr] MEDICATIONS oxyCODONE IR (ROXICODONE) 5 mg immediate [...] breath, wheezing and stridor. (more content not included)...[facility]08-03-2023 History of Present illness Narrative* Eliel Blount, RIO.[facility] - 11/22/2022 11:57 AM EDT Subjective HPI [...] CTR VAD W/SUBQ PORT AGE 6 YR/> 3-1113 RIGHT IJ MAST MODF RAD W/AX LYMPH NOD W/WO PECT/ANAID MIN 5-16 left OPEN TREATMENT PROXIMAL HUMERAL FRACTURE Right [...] - Alkylamine, Benadryl [Diphenhydramine Hcl], and Neosporin [Emzkyqoa-Jhuuadpbud-Chdmrqaea] MEDICATIONS oxyCODONE IR (ROXICODONE) 5 mg immediate [...] agrees with plan of care. Eliel Blount APRN.ROLL EDGE MACHINE OPERATOR documented in this encounterGreene Memorial Hospital03-24-2023 History of Present illness Narrative* John Erazo RN - 07/13/2022 7:40 AM EDT Patient is here for IVAD port flush per [facility] [place] protocol. IVAD is located in right upper chest. Site cleansed with Chloraprep IVAD accessed with a #20 gauge 3/4 non-coring Gripper needle Blood Return: Good Flushed with: 20 ml Normal Saline and 5 ml Heparin Lock Flush Non-coring needle removed. Paper tape applied to puncture site. Port site negative for redness, edema or tenderness. Patient tolerated procedure well. documented in this encounterGreene Memorial Hospital03-13-[address] Ly [facility] July 02, 2022 8:37pm Note Date/Time July 02, 2022 5:2 4pm [facility] Medical Records Department [address] [place] [address] Emergency Department Summary 07/02/22 MR#: [id number] Acct: [id number] Name: AIDEN FIELDS Rep #:[id number] : 1945 76 From: Sim Ly MD PCP: Dr. 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 [facility] Medical History Alcohol abuse Alcohol intoxication Anemia [...] Unknown Unknown Verified 07/02/22 16:16 [From Neosporin (zti-shb-qqvqa)] neomycin Allergy Unknown Unknown Verified 07/02/22 16:16 [From Neosporin (gwa-fll-rzcfi)] polymyxin B Allergy Unknown Unknown Verified 07/02/22 16:16 [From Neosporin (isy-owa-mcukj)] Antihistamines - Alkylamine Allergy PT UNSURE Verified [...] She does have an appointment with her scheduler conveyor already in about 3 days. She was [...] removal Activity Restrictions/Additional Instructions: Follow-up with your scheduler conveyor as scheduled. Disposition Disposition: Home, Self Care What to do if you have Problems For any increased pain, shortness of breath, bleeding, nausea or vomiting, chestpain, or any unexpected problems, contact your Primary Care Provider. Call [facility] ([phone]) or report to the closest Emergency Room. Call 911 if necessary. 07/02/222036 <Electronically signed by Sim Ly MD> Cosigner Signature (if applicable): CC: Dr. Erica Richardson DO ~ Signed [facility] Work Phone: [phone]) 248-121102-24-2023 History of Present illness Narrative* Radha Suarez RN - 06/15/2022 2:42 PM EST Patient is here for IVAD port flush per [facility] [place] protocol. IVAD is located in right upper chest. Site cleansed with Chloraprep IVAD accessed with a #20 gauge 3/4 non-coring Gripper needle Blood Return: Good Flushed with: 20 ml Normal Saline and 5 ml Heparin Lock Flush Non-coring needle removed. Paper tape applied to puncture site. Port site negative for redness, edema or tenderness. Patient tolerated procedure well. documented in this encounterGreene [facility] Hospital01-04-2023 History of Present illness Narrative* Radha Suarez RN - 04/25/2022 1:35 PM EST Patient is here for IVAD port flush per [facility] [place] protocol. IVAD is located in right upper chest. Site cleansed with Chloraprep IVAD accessed with a #20 gauge 3/4 non-coring Gripper needle Blood Return: Good Flushed with: 20 ml Normal Saline and 5 ml Heparin Lock Flush Non-coring needle removed. Paper tape applied to puncture site. Port site negative for redness, edema or tenderness. Patient tolerated procedure well. documented in this encounterGreene Memorial Hospital09-20-2022 [facility]09-20-2022 History of Present illness Narrative* All Tsang MD - 01/09/2022 1:15 PM EDT NEUROSURGERY FOLLOW UP OFFICE NOTE Dr. All Tsang MD, FACS Date of visit: January 09, 2022 Patient Name: Ms.Barbara John Fields Date of : 1945 Current Age: [age] year old Sex: female MRN/E# [id number] Last Office Visit: 11/03/2021 Chief Complaint: Patient presents with: Established Patient SUBJECTIVE: The patient presents as a follow-up with imaging (MRI B) for evaluation. This is a 76-year-old female with a history of breast cancer and melanoma who was seen in consult at [facility] on 10/07/[address] Delgado after [...] seizure activity. She was residing in a senior care and was working with physical therapy given [...] RAD W/AX LYMPH NOD W/WO PECT/ANAID MIN 09-04-12 left OPEN TREATMENT PROXIMAL HUMERAL FRACTURE Right [...] symptoms. This note was partially generated using [employer] voice recognition system, and there may be some incorrect words, spellings, and punctuation that were not noted in checking the note before saving. documented in this encounterGreene Memorial Hospital09-15-2022 History of Present illness Narrative* Erica Desai RT(R) - 01/04/2022 1:40 PM EDT Radiology [...] 04, 2022 2:02 PM documented in this encounterGreene Memorial Hospital09-14-2022 Miscellaneous Notes* Telephone Encounter - Tsering Castillo - 01/03/2022 12:19 PM EDT Patient has been scheduled for port access at 1:30 pm tomorrow and I did let patient's nurse at [facility] know this, she confirmed patient's arrival time. Tsering Cobb Pss * Telephone Encounter - KATIE Rivas - 01/03/2022 10:55 AM EDT Pt would like to use port for appt on 01/04/22 for MRI @ 1:40pm Please call pt to let them know what time to come in please documented in this encounterGreene Memorial Hospital07-15-2022 [facility]07-14-2022 [facility]07-14-2022 History of Present illness Narrative* Denys Bolden PA-C - 11/02/2021 3:17 PM EDT Images from the original note were not included. Trauma Clinic Note SERVICE DATE: 11/02/2021 Trauma Service Pager: For questions or concerns Mon-Fri 6a-5p please page [phone]. After 5pm and on Weekends and Holidays, please page [phone] if in ICU or [phone] if on RNF. SUBJECTIVE: Patient presents to the trauma clinic with her daughter. She came from her care home facility. She is here for rib [...] GLF on ASA on 10/06/2021 (transfer from [place]) Traumatic Injuries: 1. Right frontal IPH 2. [...] November 02, 2021 TIME: 3:26 PM Pager: [phone] (text page) documented in this encounterGreene Memorial Hospital07-14-2022 [facility]07-14-2022 Instructions* Patient Instructions* Denys Bolden PA-C - [...] another 2 viewchest x-ray documented in this encounterGreene Memorial Hospital07-14-2022 History of Present illness Narrative* RT [...] IV DATA: Not applicable SIGNED BY: RT Castro(Ashlie) November 02, 2021 12:30 PM documented in this encounterGreene Memorial Hospital07-11-2022 History of Present illness Narrative* RT [...] 30, 2021 3:21 PM documented in this encounterGreene Memorial Hospital07-01-2022 Miscellaneous Notes* Telephone Encounter - Eva Castillo - 10/20/2021 9:45 AM EDT Left message with day and time of scheduled follow up appointments. Eva Dee Pss documented in this encounterGreene Memorial Hospital06-28-2022 [facility]06-27-2022 [facility]06-26-2022 [facility]06-25-2022 [facility]06-24-2022 [facility]06-24-2022 [facility]06-23-[address] [facility]06-23-2022 Miscellaneous Notes* Telephone Encounter - Aiden Alanis LPN - 10/12/2021 4:30 PM EDT Pt's Sister Sami(a psych nurse) from [place] called to update Dr Santos or Stalin [...] psych eval. Sami can be reached at [phone] . I called and notified Stalin Grimaldo PAC who isgoing to talk to pt and the sister that is SIM that is at the hospital now. BCjone BRAVO documented in this encounterGreene Memorial Hospital06-23-2022 [facility]06-22-2022 [facility]06-22-2022 [facility]06-21-2022 [facility]06-21-2022 [facility]06-21-2022 [facility]06-21-[address] [facility]06-20-2022 [facility] 10-09-2021 [facility]06-20-2022 [facility]06-20-2022 [facility]06-20-2022 [facility]06-20-2022 NoteHNO ID: [id number] Author: Medhat Silveira RN Service: ? Author Type: Registered Nurse Type: Nursing Progress Note Filed: 10/09/2021 2:22 AM Note Text: Pt up to bsc with assist of 1 unable to void will bladder [facility]06-19-2022 [facility]06-19-2022 [facility]06-19-2022 [facility]06-18-[address] [facility]03-23-2022 History of Present illness Narrative* Nicho [...] COVID-19. - COVID WITH FLUA+B, ROUTINE Nicho Johnson MD documented in this encounterGreene Memorial Hospital11-26-2021 History of Present illness Narrative* Katarzyna [...] 17, 2021 2:30 PM documented in this encounterGreene Memorial Hospital03-28-2013 History of Past illness Narrative* Problem Noted Date Resolved Date 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 10/03/2012 Breast cancer 07/03/2012 02/11/2013 documented as of this encounter (statuses as of 07/17/2021) [facility]03-[facility] History of Past illness Narrative* Problem Noted Date Resolved Date 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 10/03/2012 Breast cancer 07/03/2012 02/11/2013 documented as of this encounter (statuses as of 08/01/2021) [place] [address]-28-2013 History of Past illness Narrative* Problem Noted Date Resolved Date 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 10/03/2012 Breast cancer 07/03/2012 02/11/2013 documented as of this encounter (statuses as of 08/29/2021) [place] [address]-28-2013 History of Past illness Narrative* Problem Noted Date Resolved Date 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 10/03/2012 Breast cancer 07/03/2012 02/11/2013 documented as of this encounter (statuses as of 10/03/2021) [place] [address]-28-2013 History of Past illness Narrative* Problem Noted Date Resolved Date 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 10/03/2012 Breast cancer 07/03/2012 02/11/2013 documented as of this encounter (statuses as of 10/11/2021) [place] [address]-28-2013 History of Past illness Narrative* Problem Noted Date Resolved Date 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 10/03/2012 Breast cancer 07/03/2012 02/11/2013 documented as of this encounter (statuses as of 10/12/2021) [facility] of [facility] illness Narrative* Problem Noted Date Resolved Date 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 10/03/2012 Breast cancer 07/03/2012 02/11/2013 documented as of this encounter (statuses as of 10/20/2021) [place] [address]-28-2013 History of Past illness Narrative* Problem Noted Date Resolved Date 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 10/03/2012 Breast cancer 07/03/2012 02/11/2013 documented as of this encounter (statuses as of 10/31/2021) [place] [address]-28-2013 History of Past illness Narrative* Problem Noted Date Resolved Date 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 10/03/2012 Breast cancer 07/03/2012 02/11/2013 documented as of this encounter (statuses as of 11/02/2021) [place] [address]-28-2013 History of Past illness Narrative* Problem Noted Date Resolved Date 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 10/03/2012 Breast cancer 07/03/2012 02/11/2013 documented as of this encounter (statuses as of 11/03/2021) [place] [address]-28-2013 History of Past illness Narrative* Problem Noted Date Resolved Date 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 10/03/2012 Breast cancer 07/03/2012 02/11/2013 documented as of this encounter (statuses as of 01/03/2022) [address]28-2013 History of Past illness Narrative* Problem Noted Date Resolved Date 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 10/03/2012 Breast cancer 07/03/2012 02/11/2013 documented as of this encounter (statuses as of 01/04/2022) [address]28-2013 History of Past illness Narrative* Problem Noted Date Resolved Date 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 10/03/2012 Breast cancer 07/03/2012 02/11/2013 documented as of this encounter (statuses as of 01/05/2022) [place] [address]-28-2013 History of Past illness Narrative* Problem Noted Date Resolved Date 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 10/03/2012 Breast cancer 07/03/2012 02/11/2013 documented as of this encounter (statuses as of 01/09/2022) [place] [address]-28-2013 History of Past illness Narrative* Problem Noted Date Resolved Date 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 10/03/2012 Breast cancer 07/03/2012 02/11/2013 documented as of this encounter (statuses as of 03/28/2022) [place] [address]-28-2013 History of Past illness Narrative* Problem Noted Date Resolved Date 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 10/03/2012 Breast cancer 07/03/2012 02/11/2013 documented as of this encounter (statuses as of 04/27/2022) [place] [address]-28-2013 History of Past illness Narrative* Problem Noted Date Resolved Date 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 10/03/2012 Breast cancer 07/03/2012 02/11/2013 documented as of this encounter (statuses as of 06/15/2022) [facility] Narrative* Problem Noted Date Resolved Date 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 10/03/2012 Breast cancer 07/03/2012 02/11/2013 documented as of this encounter (statuses as of 07/13/2022) [facility] of [facility] illness Narrative* Problem Noted Date Resolved Date 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 10/03/2012 Breast cancer 07/03/2012 02/11/2013 documented as of this encounter (statuses as of 08/10/2022) [facility] of [facility] illness Narrative* Problem Noted Date Diagnosed Date Resolved Date 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 10/03/2012 Breast cancer 07/03/2012 02/11/2013 documented as of this encounter (statuses as of 11/22/2022) [place] [address]-28-2013 History of Past illness Narrative* Problem Noted Date Diagnosed Date Resolved Date 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 10/03/2012 Breast cancer 07/03/2012 02/11/2013 documented as of this encounter (statuses as of 11/24/2022) [place] [address]-28-2013 History of Past illness Narrative* Problem Noted Date Diagnosed Date Resolved Date 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 10/03/2012 Breast cancer 07/03/2012 02/11/2013 documented as of this encounter (statuses as of 08/06/2023) [facility] complaint+Reason for visit Narrative* Chief Complaint LABS/MANDEEP 1 Y FU 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 LONGTERM LABWORK LONGTERM LABWORK Reason for Visit Hypoparathyroidism a fter procedure Hypothyroidism [facility] Work Phone: Chief complaint+Reason for visit Narrative* Chief Complaint LABS/MANDEEP 1 Y FU 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 LONGTERM LABWORK LONGTERM LABWORK Reason for Visit Hypoparathyroidism a fter procedure Hypothyroidism [facility] Work Phone: Chief complaint+Reason for visit Narrative* Chief Complaint 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 LONGTERM LABWORK LONGTERM LABWORK LONGTERM LABWORK LAB WORK LONGTERM LABWORK LONGTERM LAB WORK [facility] Work Phone: Chief complaint+Reason for visit Narrative* Chief Complaint 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 LONGTERM LABWORK LONGTERM LABWORK LONGTERM LABWORK LAB WORK LONGTERM LABWORK LAB WORK LONGTERM LABWORK LONGTERM LAB WORK LABWORK [facility] Work Phone: Chief complaint+Reason for visit Narrative* Chief Complaint 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 LONGTERM LABWORK LONGTERM LABWORK LONGTERM LABWORK LAB WORK LONGTERM LABWORK LAB WORK LONGTERM LABWORK LONGTERM LAB WORK LONGTERM LABWORK LABWORK LONGTERM LAB WORK [facility] Work Phone: Chief complaint+Reason for visit Narrative* Chief Complaint 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 LONGTERM LABWORK LONGTERM LABWORK LONGTERM LABWORK LAB WORK LONGTERM LABWORK LAB WORK LONGTERM LABWORK LONGTERM LAB WORK LONGTERM LABWORK LONGTERM LABWORK LABWORK LONGTERM LAB WORK [facility] Work Phone: Chief complaint+Reason for visit Narrative* Chief Complaint 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 LONGTERM LABWORK LONGTERM LABWORK LONGTERM LABWORK LAB WORK LONGTERM LABWORK LAB WORK LONGTERM LABWORK LONGTERM LAB WORK LONGTERM LABWORK LONGTERM LABWORK LABWORK LONGTERM LAB WORK LONGTERM LAB WORK [facility] Work Phone: Chief complaint+Reason for visit Narrative* Chief Complaint 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 LONGTERM LABWORK LONGTERM LABWORK LONGTERM LABWORK LAB WORK LONGTERM LABWORK LAB WORK LONGTERM LABWORK LONGTERM LAB WORK LONGTERM LABWORK LONGTERM LABWORK LABWORK LONGTERM LAB WORK LONGTERM LAB WORK [facility] Work Phone: Chief complaint+Reason for visit Narrative* Chief Complaint 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 LONGTERM LABWORK LONGTERM LABWORK LONGTERM LABWORK LAB WORK LONGTERM LABWORK LAB WORK LONGTERM LABWORK LONGTERM LAB WORK LONGTERM LABWORK LONGTERM LABWORK LABWORK LONGTERM LAB WORK LABWORK LONGTERM LAB WORK FALL [facility] Work Phone: Chief complaint+Reason for visit Narrative* Chief Complaint 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 LONGTERM LABWORK LONGTERM LABWORK LONGTERM LABWORK LAB WORK LONGTERM LABWORK LAB WORK LONGTERM LABWORK LONGTERM LAB WORK LONGTERM LABWORK LONGTERM LABWORK LABWORK LONGTERM LAB WORK LABWORK LONGTERM LAB WORK FALL LONGTERM LABWORK LONGTERM LABWORK [facility] Work Phone: Chifa complaint+Reason for visit Narrative* Chief Complaint 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 LONGTERM LABWORK LONGTERM LABWORK LONGTERM LABWORK LAB WORK LONGTERM LABWORK LAB WORK LONGTERM LABWORK LONGTERM LAB WORK LONGTERM LABWORK LONGTERM LABWORK LABWORK LONGTERM LAB WORK LABWORK LONGTERM LAB WORK FALL LONGTERM LABWORK LONGTERM LABWORK LONGTERM LABWORK LONGTERM LAB WORK [facility] Work Phone: chief complaint+Reason for visit Narrative* Chief Complaint 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 LONGTERM LABWORK LONGTERM LABWORK LONGTERM LABWORK LAB WORK LONGTERM LABWORK LAB WORK LONGTERM LABWORK LONGTERM LAB WORK LONGTERM LABWORK LONGTERM LABWORK LABWORK LONGTERM LAB WORK LABWORK LONGTERM LAB WORK LABWORK FALL LONGTERM LABWORK LONGTERM LABWORK LONGTERM LABWORK LONGTERM LAB WORK [facility] Work Phone: Discharge summary Author James Rousewheaton medical centergirish [facility] November 23, 2022 12:54pm Note Date/Time November 23, 2022 12: 44pm [facility] Medical Records Department [address] [place] [address] Instructions for Home/Discharge Instructions 11/23/22 1241 MR#: [id number] Acct: [id number] Name: AIDEN FIELDS Rep #:[id number] : 1945 77 From: James Lamar DO PCP: Dr. Erica Richardson, DO Status:ADM MAXIME Discharge Instructions Diet Discharge [...] DO; Dr. Bandar Chanel MD ~ Signed [facility] Work Phone: Evaluation note* Diagnosis Otalgia, right- Primary Vertigo Dizziness and giddiness URI, acute Acute upper respiratory infections of unspecified site documented [facility] this encounter [facility]* Diagnosis Malignant neoplasm of left breast in female, estrogen receptor positive, unspecified site of breast (HCC)- [facility]* Diagnosis Onset Date Resolution Status Hypoparathyroidism after procedure acute Hypothyroidism acute [facility] Work Phone: Evaluation note* Diagnosis Malignant neoplasm of left breast in female, estrogen receptor positive, unspecified site of breast (HCC)- Primary documented [facility]* Diagnosis SDH (subdural hematoma) (HCC)- Primary Subdural hemorrhage documented [facility]* Diagnosis SDH (subdural hematoma) (HCC) Subdural hemorrhage documented [facility]* Diagnosis Closed fracture of multiple ribs with flail chest with routine healing, subsequent encounter- Primary documented in this encounter [facility]* Diagnosis Closed fracture of multiple ribs of left side, initial encounter Lung laceration, subsequent encounter [facility] noteNo assessment [facility] Work [facility]: Evaluation [facility]* Diagnosis Malignant neoplasm of left breast in female, estrogen receptor positive, unspecified site of breast (HCC)- Primary documented [facility] this [facility]* Diagnosis SDH (subdural hematoma) (HCC) Subdural hemorrhage Cerebral hemorrhage (HCC) Intracerebral hemorrhage documented [facility]* Diagnosis SDH (subdural hematoma)- Primary Subdural hemorrhage Cerebral hemorrhage (HCC) Intracerebral hemorrhage documented [facility]* Diagnosis Malignant neoplasm of left breast in female, estrogen receptor positive, unspecified site of breast (HCC)- Primary documented in this encounter [facility]* Diagnosis Malignant neoplasm of left breast in female, estrogen receptor positive, unspecified site of breast (HCC)- Primary documented [facility]* Diagnosis Onset Date Resolution Status Cough acute Hypoxia acute [facility] Work Phone: Evaluation note* Diagnosis Acute cough- Primary SOB (shortness of breath) Shortness of breath Suspected COVID-19 virus infection documented [facility] this [facility]* Diagnosis Onset Date Resolution Status Cough acute Dyspnea on exertion acute Hypoxia [facility] Work Phone: Evaluation note* Diagnosis Onset Date Resolution Status Acute hypotension acute Acute hypoxic respiratory failure acute Creatinine elevation acute Encephalopathy due to infection acute Ketosis acute Pyuria acute SIRS (systemic inflammatory response syndrome) acute [facility] Work Phone: Evaluation note* Diagnosis History of breast cancer- Primary Personal history of malignant neoplasm of breast [facility] Diagnosis Onset Date Resolution Status Acute hypotension resolved Creatinine elevation resolve d Encephalopathy due to infection resolved Ketosis resolved Pyuria resolved SIRS (systemic inflammatory response syndrome) resolved [facility] Work Phone: Evaluation note* Diagnosis History of breast cancer- Primary Personal history of malignant neoplasm of breast [facility] Diagnosis Pre-operative examination- Primary Preoperative examination, [...] encounter Acute cough [facility] Diagnosis Pre-operative examination- Primary Preoperative examination, [...] arm, subsequent encounter [facility] Author Aggie Bolton [facility] May 19, 2023 1:45am Note Date/Time May 19, 2023 1 :39am [facility] Medical Records Department [address] [place] [id number] H&P Exam - Hospitalist 05/19/23 0135 MR#: [id number] Acct: [id number] Name: AIDEN FIELDS Rep #:[id number] : 1945 77 From: Aggie Bolton MD [...] of prior records who presents to the [facility] ED on 05/19/23 with significant encephalopathy [...] and azithromycin 500 mg IV x 1. PFSH Medical History (Updated 05/19/23 @ 01:44 by [...] Unknown Unknown Verified 05/18/23 23:29 [From Neosporin ([id number])] neomycin Allergy Unknown Unknown Verified 05/18/23 23:29 [From Neosporin ([id number]-[id number])] polymyxin B Allergy Unknown Unknown Verified 05/18/23 23:29 [From Neosporin ([id number]-[id number])] Antihistamines - Alkylamine Allergy PT UNSURE Verified [...] 89.8 H, Lymph % (Auto) 6.3 L, [place] % (Auto) 2.4, Eos % (Auto) 0.3, [...] Urine Clarity Cloudy, Urine pH6.0, Ur Specific [place] 1.010, Urine Protein 100 H, Urine Glucose [...] acute cardiopulmonary disease. Electronically Signed: Eliel Christensen, at 0:46 EST , Assessment & Plan Assessment/Plan (1) Encephalopathy due to infection: PLAN: Plan The patient is a 74 y/o F w/ PMHx: Dementia unclear type with unclear behavioraldisturbance history, Chronic anemia, Hx Breast CA s/p mastectomy, HTN, HLD, Rheumatoid arthritis, Hypothyroidism, Anxiety and Depression, EtOH abuse/Polysubstance dependency including BZD/opiates per review of prior recordswho presents to the [facility] ED on 05/19[facility]23 with significant encephalopathy [...] prophylaxis: Heparin. Charges/Coding Visit Charges Inpatient E&M: 91146 Init Hosp L3 05/19/23 0145 <Electronically signed by Aggie Bolton MD> Cosigner Signature (if applicable): CC: Dr. Aggie Bolton MD; Dr. Erica Richardson, DO~ Signed [facility] Work Phone: [facility] Work Phone: Hospital Discharge instructions Additional Instructions Follow-up with your scheduler conveyor as scheduled.[facility] Work Phone: Hospital Discharge instructions Additional Instructions Thank you for trusting us with your care today! Please take Tylenol (2 pills, 650 mg), ibuprofen (2 pills, 400 mg) every 6 hours as needed for pain and fever control. Please return to the emergency department if your symptoms change or worsen. 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 [address] [phone] [place] [address] Referral ID Status Reason Start Date Expiration Date V isits Requested Visits Authorized [id number] Closed Auto-Generate d Referral 03/17/2021 04/16/2022 1 1 [facility] for referral (narrative)No reason for referral information availableW[facility] Work Phone: Reason for visit Narrative* Diagnostic Procedure Only (Urgent) - Closed Specialty Diagnoses / Procedures Referred By Contac t Referred To Contact XR IMAGING Diagnoses Injury of left upper arm, subsequent encounter Procedures XR HUMERUS 2V AP/LAT LEFT X-RAY HUMERUS Earline Rebolledo, RUNSTITCHING MACHINE OPERATOR.ROLL EDGE MACHINE OPERATOR [address] [phone] [place] [address] Referral ID Status Reason Start Date Expiration Date V isits Requested Visits Authorized [id number] Closed Auto-Generate d Referral 03/17/2021 04/16/2022 1 1 [facility] Summary Purpose Family History Relationship Condition Age at Onset Recorded Date/T [...] Unknown father Suicidal intent Unknown Advance Directives Latest Code Status on File Code Status Date Activated Date Inactivated Comments Full Code 04/16/2020 11:37 AM Documents on File Type Date Recorded Patient Car Bracer Expl anation Advance Directive(s) 06/13/2018 11:17 AM Advance Directive Response Recorded Date/ Time Name of Medical Power of Coal Gasification Technician . May 21, 2021 3:48pm Living Will Yes June 11 12:06pm Power of Coal Gasification Technician Yes June 11, 2021 12:06pm Advance Directive Response Recorded Date/ Time Name of Medical Power of Coal Gasification Technician Reed Marx June 11, 2021 12:06pm Living Will Yes October 06, 2021 9:38pm Power of Coal Gasification Technician No October 06 9:38pm Documents on File Type Date Recorded Patient Car Bracer Expl anation Advance Directive(s) 10/07/2021 4:42 AM Advance Directive(s) 06/13/2018 11:17 AM Documents on File Type Date Recorded Patient Car Bracer Expl anation Advance Directive(s) 10/07/2021 4:42 AM Advance Directive(s) 06/13/2018 11:17 AM Advance Directive Response Recorded Date/ Time Living Will Yes October 06, 2021 9:38pm Power of Coal Gasification Technician No October 06 9:38pm Advance Directive Response Recorded Date/ Time Name of Medical Power of Coal Gasification Technician REED AZAR January 10, 2022 11:50am Living Will Yes January 10, 2022 11:50am Power of Coal Gasification Technician Yes December 11:50am Advance Directive Response Recorded Date/ Time Living Will Yes March 09 8:51am Power of Coal Gasification Technician Yes March 09, 2022 8:51am Name of Medical Power of Coal Gasification Technician REED AZAR January 10, 2022 10:50am Advance Directive Response Recorded Date/ Time Living Will Yes March 09 8:51am Power of Coal Gasification Technician Yes March 09, 2022 8:51am Advance Directive Response Recorded Date/ Time Name of Medical Power of Coal Gasification Technician karol marx- daughter July 02, 2022 5:04pm Living Will Yes July 02, 2022 5:04pm Power of Coal Gasification Technician Yes July 02 5:04pm Advance Directive Response Recorded Date/ Time Name of Medical Power of Coal Gasification Technician Reed Marx November 22, 2022 12:50pm Living Will Yes November 22, 2022 12:50pm Power of Coal Gasification Technician Yes November 22 12:50pm Advance Directive Response Recorded Date/ Time Name of Medical Power of Coal Gasification Technician Reed Marx November 22, 2022 6:25pm Living Will Yes November 22, 2022 6:25pm Power of Coal Gasification Technician Yes November 22 6:25pm Advance Directive Response Recorded Date/ Time Living Will Yes November 22, 2022 5:25pm Power of Coal Gasification Technician Yes November 22 5:25pm Advance Directive Response Recorded Date/ Time Name of Medical Power of Coal Gasification Technician Reed Marx May 19, 2023 3:16am Living Will Yes May 19 3:16am Power of Coal Gasification Technician Yes May 19, 2023 3:16am Advance Directive Response Recorded Date/ Time Name of Medical Power of Coal Gasification Technician Reed Marx May 19, 2023 4:16am Living Will No August 20, 2023 12:29pm Power of Coal Gasification Technician No August 19 12:29pm Advance Directive Response Recorded Date/ Time Living Will No July 04, 2024 1:18pm Power of Coal Gasification Technician No July 04 1:18pm Advance Directive Response Recorded Date/ Time Living Will No July 04, 2024 1:18pm Do you have a Healthcare Power of Coal Gasification Technician? No July 04, 2024 1:18pm Advance Directive Response Recorded Date/ Time Living Will No July 04, 2024 1:18pm Do you have a Healthcare Power of Coal Gasification Technician? No July 04, 2024 1:18pm Do you have a Healthcare Power of Coal Gasification Technician? Yes September 22, 2024 11:53pm Name of Medical Power of Coal Gasification Technician Reed Burris September 22, 2024 11:53pm Reason for Referral Status Reason Specialty Diagnoses / Procedures Referre d By Contact Referred To Contact Open Radiology Diagnoses Traumatic subdural hematoma with loss of consciousness of 30 minutes or less, subsequent encounter Procedures CT Head WO Contrast Nicho Thompson MD [address] [place] [id number] Specialty Diagnoses / Procedures Referred By Contac t Referred To Contact CT IMAGING Diagnoses SDH (subdural hematoma) (HCC) Procedures CT BRAIN WO IVCON CT HEAD/BRAIN W/O CONTRAST MATERIAL Yolie Lowe PA-C [address] [place] [address] Ct Imaging Referral ID Status Reason Start Date Expiration Date Visits Requested Visits Authorized [id number] Pending Review Auto-Generat ed Referral 10/25/2021 11/10/2022 1 1 Referral ID Status Reason Start Date Expiration Date V isits Requested Visits Authorized [id number] Closed Auto-Generate d Referral 10/25/2021 11/10/2022 1 1 Specialty Diagnoses / Procedures Referred By Contac t Referred To Contact MR IMAGING Diagnoses SDH (subdural hematoma) (HCC) Cerebral hemorrhage (HCC) Procedures MRI BRAIN WO/W IVCON MRI BRAIN BRAIN STEM W/O W/CONTRAST MATERIAL Sherice Rosenberg APRN.ROLL EDGE MACHINE OPERATOR [address] [facility] [place] [address] Mr Imaging Referral ID Status Reason Start Date Expiration Date V isits Requested Visits Authorized [id number] Closed Auto-Generate d Referral 11/03/2021 12/03/2022 1 [...] 9:44 AM EST Family Communication Number Called: [phone] Name of Designated Family Car Bracer: Reed Fields Relationship to Patient: daughter Phone Call Outcome: I spoke with the individual listed above. Family Car Bracer Updated on the Following: CT scan and plan for placement in a facility. Discussed that patient wants to leave and has capacity but our recommendation is to stay. Daughter carlshabdirahman understood and would try to convince her to stay. * Yara Fletcher, OT - 04/17/2020 9:11 AM EST Occupational Therapy Occupational Therapy Initial Assessment Date: 04/17/2020 Patient Name: Aiden Fields : 1945 Date of Service: 04/17/2020 Discharge Recommendations: (Facility-based therapy or home with / supervision and HH OT/PT) Assessment Performance deficits [...] tasks this date. 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 Patient's Occupational Therapy Plan of Care [facility]. This provider wore an N95, face shield, and gloves for the duration of the session with this pt. Yara Fletcher OTR/L * Parvez Bolden, PT - 04/17/2020 9:05 AM EST Physical Therapy Facility/Department: [facility] ICU T2 Initial Assessment NAME: Aiden Fields : 1945 Date of Service: 04/17/2020 Discharge Recommendations: (facility based therapy) Assessment Body structures, Functions, Activity limitations: Decreased functional mobility ;Decreased strength;Decreased balance;Decreased safe awareness;Decreased endurance Assessment: Pt admitted for Small R temporal SDH without mass effect after fall. 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 Goals and/or treatment plan [...] 2:38 PM EST Speech Language Pathology Facility/Department: [facility] ICU T2 CLINICAL BEDSIDE SWALLOW EVALUATION NAME: [...] Injury: Fall SH Mechanism of Arrival:Transfer from [place] Chief Complaint: headache History of Traumatic Injury: 74 y.o. female with history of depression, anxiety, hypothyroidism, hypertension, breast cancer s/p mastectomy, melanoma s/p excision and on baby ASA who presents as transfer from [facility] after patient suffered a mechanical fall [...] lifealert. EMS cam and brought her to [facility]. Work up at the OSH, showed [...] was repair and she was transferred to [facility] for further management. Upon arriaval she was [...] if any concerns arise. Treatment Plan Requires SUPERVISOR DRY CLEANING Intervention: No Duration/Frequency of Treatment: na Recommended Diet and Intervention Diet Solids Recommendation: Regular Liquid Consistency Recommendation: Thin General Chart Reviewed: Yes Behavior/Cognition: Alert;Cooperative - patient lives alone - spouse moved to [facility] 9 months ago due to dementia. Patient [...] Safety Devices in place: Yes Therapy Time SUPERVISOR DRY CLEANING Individual Minutes Time In: 1415 Time Out: 1430 Minutes: 15 SUPERVISOR DRY CLEANING Total Treatment Time Total Treatment Time: 15 Char Walsh MS, CCC/ SUPERVISOR DRY CLEANING 04/16/2020 2:38 PM An N95 mask, a [...] Hospital Course Note Department of Trauma / Criti [facility] Care Discharge Summary Name: Aiden Fields Date: 04/20/2020 [...] Hypoparathyroidism a fter procedure Hypothyroidism Chief Complaint LONGTERM LABWORK LONGTERM LABWORK LONGTERM LABWORK LAB WORK LONGTERM LABWORK LAB WORK LONGTERM LABWORK LONGTERM LAB WORK LONGTERM LABWORK LONGTERM LABWORK LABWORK LONGTERM LAB WORK LABWORK LONGTERM LAB WORK LABWORK FALL LONGTERM LABWORK LONGTERM LABWORK LONGTERM LABWORK LONGTERM LAB WORK LONGTERM LAB WORK Chief Complaint LAB WORK LONGTERM LABWORK LAB WORK LONGTERM LABWORK LONGTERM LAB WORK LONGTERM LABWORK LONGTERM LABWORK LABWORK LONGTERM LAB WORK LABWORK LONGTERM LAB WORK LABWORK FALL LONGTERM LABWORK LONGTERM LABWORK LONGTERM LABWORK LONGTERM LAB WORK LONGTERM LAB WORK LONGTERM LAB WORK FOLLOW UP Chief Complaint LONGTERM LABWORK LAB WORK LONGTERM LABWORK LONGTERM LAB WORK LONGTERM LABWORK LONGTERM LABWORK LABWORK LONGTERM LAB WORK LABWORK LONGTERM LAB WORK LABWORK FALL LONGTERM LABWORK LONGTERM LABWORK LONGTERM LABWORK LONGTERM LAB WORK LONGTERM LAB WORK LONGTERM LAB WORK LONGTERM LABWORK FOLLOW UP Chief Complaint LONGTERM LAB WOR K LABWORK FALL LONGTERM LABWORK LONGTERM LABWORK LONGTERM LABWORK LONGTERM LAB WORK LONGTERM LAB WORK LONGTERM LAB WORK LONGTERM LABWORK FOLLOW UP LONGTERM LABWORK Chief Complaint LONGTERM LAB WOR K LONGTERM LABWORK FOLLOW UP LONGTERM LABWORK PAIN IN RIGHT THIGH Chief Complaint FOLLOW UP LONGTERM LABWORK PAIN IN RIGHT THIGH RIGHT THIGH MASS Chief Complaint LONGTERM LABWORK PAIN IN RIGHT THIGH RIGHT THIGH [...] URINE DROPOFF September 11, 2024 12:53 pm Chief Complaint Admit Date general illness July 04, 2024 12: 55pm URINE DROPOFF September 11, 2024 12:53 pm ADULT FTT, UTI, MILD RHABDO September 22 10:45pm ADULT FTT, UTI, MILD RHABDO September 23 8:16am ADULT FTT, UTI, MILD RHABDO September 24 8:09am ADULT FTT, UTI, MILD RHABDO September 25 8:03am Reason for Visit Admit Date Debility September 22, 2024 10:45 pm Elevated CPK September 22, 2024 10:45 pm Fatigue September 22, 2024 10:45 pm Generalized weakness September 22, 2024 10:4 5pm Unable to ambulate September 22, 2024 10:45 pm UTI (urinary tract infection) September 22, 2024 10:45pm Additional Source Comments INFORMATION SOURCE (unrecogn ized section and content) DATE CREATED AUTHOR 09/06/2019 [facility] ([place]) DATE CREATED AUTHOR AUTHOR'S ORGANIZ ATION 05/05/2020 [facility] DATE CREATED AUTHOR AUTHOR'S ORGANIZ ATION 01/21/2022 [facility] DATE CREATED AUTHOR AUTHOR'S ORGANIZ ATION 09/22/2023 [facility] DATE CREATED AUTHOR AUTHOR'S ORGANIZ ATION 11/08/2023 [facility] DATE CREATED AUTHOR AUTHOR'S ORGANIZ ATION 09/26/2024 [facility] Source Comments (unrecognize d section and content) In the event this informatio n is protected by the Federal Confidentiality of Alcohol and Drug Abuse Patient Records regulations: The Federal rules restrict any use of the information to criminally investigate or prosecute any alcohol or drug abuse patient.[facility] the event this information is protected by the Federal Confidentiality of Alcohol and Drug Abuse Patient Records regulations: The Federal rules restrict any use of the information to criminally investigate or prosecute any alcohol or drug abuse patient.[facility] HospitalIn the event this information is protected by the Federal Confidentiality of Alcohol and Drug Abuse Patient Records regulations: The Federal rules restrict any use of the information to criminally investigate or prosecute any alcohol or drug abuse patient.[facility] the event this information is protected by the Federal Confidentiality of Alcohol and Drug Abuse Patient Records regulations: The Federal rules restrict any use of the information to criminally investigate or prosecute any alcohol or drug abuse patient.[facility] Hospital[facility] the event this information is protected by the Federal Confidentiality of Alcohol and Drug Abuse Patient Records regulations: The Federal rules restrict any use of the information to criminally investigate or prosecute any alcohol or drug abuse patient.[facility] the event this information is protected by the Federal Confidentiality of Alcohol and Drug Abuse Patient Records regulations: The Federal rules restrict any use of the information to criminally investigate or prosecute any alcohol or drug abuse patient.[facility] Hospital[facility] the event this information is protected by the Federal Confidentiality of Alcohol and Drug Abuse Patient Records regulations: The Federal rules restrict any use of the information to criminally investigate or prosecute any alcohol or drug abuse patient.[facility] HospitalIn the event this information is protected by the Federal Confidentiality of Alcohol and Drug Abuse Patient Records regulations: The Federal rules restrict any use of the information to criminally investigate or prosecute any alcohol or drug abuse patient.[facility] Hospital[facility] the event this information is protected by the Federal Confidentiality of Alcohol and Drug Abuse Patient Records regulations: The Federal rules restrict any use of the information to criminally investigate or prosecute any alcohol or drug abuse patient.[facility] the event this information is protected by the Federal Confidentiality of Alcohol and Drug Abuse Patient Records regulations: The Federal rules restrict any use of the information to criminally investigate or prosecute any alcohol or drug abuse patient.[facility] Hospital[facility] the event this information is protected by the Federal Confidentiality of Alcohol and Drug Abuse Patient Records regulations: The Federal rules restrict any use of the information to criminally investigate or prosecute any alcohol or drug abuse patient.[facility] HospitalIn the event this information is protected by the Federal Confidentiality of Alcohol and Drug Abuse Patient Records regulations: The Federal rules restrict any use of the information to criminally investigate or prosecute any alcohol or drug abuse patient.[facility] Hospital[facility] the event this information is protected by the Federal Confidentiality of Alcohol and Drug Abuse Patient Records regulations: The Federal rules restrict any use of the information to criminally investigate or prosecute any alcohol or drug abuse patient.[facility] HospitalIn the event this information is protected by the Federal Confidentiality of Alcohol and Drug Abuse Patient Records regulations: The Federal rules restrict any use of the information to criminally investigate or prosecute any alcohol or drug abuse patient.[facility] HospitalIn the event this information is protected by the Federal Confidentiality of Alcohol and Drug Abuse Patient Records regulations: The Federal rules restrict any use of the information to criminally investigate or prosecute any alcohol or drug abuse patient.[facility] HospitalIn the event this information is protected by the Federal Confidentiality of Alcohol and Drug Abuse Patient Records regulations: The Federal rules restrict any use of the information to criminally investigate or prosecute any alcohol or drug abuse patient.[facility] HospitalIn the event this information is protected by the Federal Confidentiality of Alcohol and Drug Abuse Patient Records regulations: The Federal rules restrict any use of the information to criminally investigate or prosecute any alcohol or drug abuse patient.[facility] HospitalIn the event this information is protected by the Federal Confidentiality of Alcohol and Drug Abuse Patient Records regulations: The Federal rules restrict any use of the information to criminally investigate or prosecute any alcohol or drug abuse patient.[facility] HospitalIn the event this information is protected by the Federal Confidentiality of Alcohol and Drug Abuse Patient Records regulations: The Federal rules restrict any use of the information to criminally investigate or prosecute any alcohol or drug abuse patient.[facility] HospitalIn the event this information is protected by the Federal Confidentiality of Alcohol and Drug Abuse Patient Records regulations: The Federal rules restrict any use of the information to criminally investigate or prosecute any alcohol or drug abuse patient.[facility] HospitalIn the event this information is protected by the Federal Confidentiality of Alcohol and Drug Abuse Patient Records regulations: The Federal rules restrict any use of the information to criminally investigate or prosecute any alcohol or drug abuse patient.[facility] HospitalIn the event this information is protected by the Federal Confidentiality of Alcohol and Drug Abuse Patient Records regulations: The Federal rules restrict any use of the information to criminally investigate or prosecute any alcohol or drug abuse patient.[facility] HospitalIn the event this information is protected by the Federal Confidentiality of Alcohol and Drug Abuse Patient Records regulations: The Federal rules restrict any use of the information to criminally investigate or prosecute any alcohol or drug abuse patient.[facility] HospitalIn the event this information is protected by the Federal Confidentiality of Alcohol and Drug Abuse Patient Records regulations: The Federal rules restrict any use of the information to criminally investigate or prosecute any alcohol or drug abuse patient.[facility] HospitalIn the event this information is protected by the Federal Confidentiality of Alcohol and Drug Abuse Patient Records regulations: The Federal rules restrict any use of the information to criminally investigate or prosecute any alcohol or drug abuse patient.[facility] Reason for Visit (unrecogniz ed section [...] W/O CONTRAST MATERIAL Yolie Lowe PA-C [address] [place] [address] Ct Imaging Referral ID Status Reason Start Date Expiration Date V isits Requested Visits Authorized [id number] Closed Auto-Generate d Referral 10/25/2021 11/10/2022 1 1 Reason Comments Post Op fu rib fx and pneumo thorax, rib plating Reason Comments Radio Gen RMP Specialty Diagnoses / Procedures Referred By Contac t Referred To Contact MR IMAGING Diagnoses SDH (subdural hematoma) (HCC) Cerebral hemorrhage (HCC) Procedures MRI BRAIN WO/W IVCON MRI BRAIN BRAIN STEM W/O W/CONTRAST MATERIAL Sherice Rosenberg APRN.[employer]LL [employer]GE MACHINE OPERATOR [address] [facility] [place] [address] Mr Imaging Referral ID Status Reason Start Date Expiration Date V isits Requested Visits Authorized [id number] Closed Auto-Generate d Referral 11/03/2021 12/03/2022 1 1 Reason Comments Established Patient Reason Comments Cough Cough x 3 weeks Reason Comments Results Care Teams (unrecognized sec tion and content) Vp Integrity Relationship Specialty Start Date End Date Erica Richardson DO [address] [place] [address] PCP - General Family Practice 02/15/17 Vp Integrity Relationship Specialty Start Date End Date Erica Richardson DO [address] [place], [place] [id number] PCP - General Family Practice 02/15/17 Vp Integrity Relationship Specialty Start Date End Date Erica Richardson DO [address] [place], [place] [id number] PCP - General Family Practice 02/15/17 Vp Integrity Relationship Specialty Start Date End Date Erica Richardson DO [address] [place], [place] [id number] PCP - [facility] 02/15/17 Vp Integrity Relationship Specialty Start Date End Date Erica Richardson DO [address] [place], [place] [id number] PCP - [facility] Family Practice 02/15/17 Vp Integrity Relationship Specialty Start Date End Date Erica Richardson DO [address] [place], [place] [id number] PCP - [facility] Practice 02/15/17 Vp Integrity Relationship Specialty Start Date End Date Erica Richardson DO [address] [place], [place] [id number] PCP - [facility] Practice 02/15/17 Vp Integrity Relationship Specialty Start Date End Date Erica Richardson DO [address] [place], [place] [id number] PCP - [facility] Practice 02/15/17 Vp Integrity Relationship Specialty Start Date End Date Erica Richardson DO [address] [place], [place] [id number] PCP - General Family Practice 02/15/17 Vp Integrity Relationship Specialty Start Date End Date Erica Richardson DO [address] [place], [place] [id number] PCP - General Family Medicine 02/15/17 Vp Integrity Relationship Specialty Start Date End Date Erica Richardson DO [address] [place], [place] [id number] PCP - General Family Medicine 02/15/17 Team Status: Active Member Role Status Dates Dr. Erica Richardson DO Family Provider Active Dr. Erica Richardson DO Primary Care Provider Active Team Status: Inactive Member Role Status Dates Dr. Erica Richardson DO Primary Care Provider Active Aiden Mcgrath INTERNET SALESPERSON, INTERNET SALESPERSON-C Attending Provider Active Team Status: Active Member [...] Primary Care Provider, Attending P rovider Active Vp Integrity Relationship Specialty Start Date End Date Erica Richardson DO [address] [place], [place] [id number] [facility] 02/15/17 Team Status: Inactive Member Role Status [...] MD Admit Provider, Attending Provi alexander Active Vp Integrity Relationship Specialty Start Date End Date Erica Richardson DO [address] [place], [place] [address] [facility] 02/15/17 Team Status: Active Member Role Status [...] James Lamar , DO Attending Provider Active Vp Integrity Relationship Specialty Start Date End Date Erica Richardson DO [address] [place] [address] PCP - General Family Medicine 02/15/17 Team [...] Provider Active Dr. Froy Velázquez DO Attending Provider, Other Provid er Active Dr. Vernon Osman MD Other Provider Active Team Status: Inactive Member Role Status Dates Dr. Erica Richardson DO Primary Care Provider Active Dr. Jorge Cardona MD Emergency Provider Active Dr. Aggie Bolton MD Admit Provider, Other Provider Active Dr. Froy Velázquez DO Attending Provider Active Dr. Vernon Osman MD Other Provider Active Vp Integrity Relationship Specialty Start Date End Date Erica Richardson DO [address] [place] [address] PCP - [facility] 02/15/17 Team Status: Inactive Member Role Status Dates Dr. Erica Richardson DO Primary Care Provider Active Dr. Seb Bautista , DO Emergency Provider Active Vp Integrity Relationship Specialty Start Date End Date Debra Erica ShivaDO [address] [place] [address] PCP - General Family Medicine 02/15/17 Vp Integrity Relationship Specialty Start Date End Date Erica Richardson [address] [place], [place] [address] PCP - General Family Medicine 02/15/17 Vp Integrity Relationship Specialty Start Date End Date Erica Richardson [address] [place], [place] [id number] PCP - General Family Medicine 02/15/17 Team [...] July 04, 2024 Dr. Froy Cameron DO Emergency Provider Active Start: July 04, 2024 End: July 04, 2024 Team Status: Inactive Member Role Status Dates Dr. Erica Richardson DO Primary Care Provider Active Start: July 04, 2024 End: July 04, 2024 Dr. Froy Cameron DO Attending Provider Active Start: July 04, 2024 End: July 04, 2024 Dr. Froy Cameron , DO Emergency Provider Active Start: July 04, 2024 [...] September 11, 2024 Dr. Erica Richardson DO Referring Provider Active St art: September 11, 2024 End: September 11, 2024 Leia Martinez Other Provider Active Start: September 11, 2024 End: September 11, 2024 Team Status: Inactive Member Role Status Dates Dr. Erica Richardson DO Primary Care Provider Active Start: September 22, 2024 End: September 25, 2024 Alexis Quijano MD Emergency Provider Active Star t: September 22, 2024 End: September 25, 2024 Dr. Aggie Bolton MD Admit Provider Active St art: September 22, 2024 End: September 25, 2024 Dr. Aggie Bolton MD Other Provider Active St art: September 22, 2024 End: September 25, 2024 Dr. Froy Velázquez DO Attending Provider Active Start: September 22, 2024 End: September 25, 2024 Team Status: Active Member Role Status Dates Dr. Erica Richardson DO Primary Care Provider Active Start: September 23, 2024 Alexis Quijano MD Emergency Provider Active Star t: September 23, 2024 Dr. Aggie Bolton MD Admit Provider Active St art: September 23, 2024 Dr. Aggie Bolton MD Other Provider Active St art: September 23, 2024 Dr. Froy Velázquez DO Attending Provider Active Start: September 23, 2024 Dr. Froy Velázquez DO Other Provider Active Star t: September 23, 2024 Team Status: Active Member Role Status Dates Dr. Erica Richardson DO Primary Care Provider Active Start: September 24, 2024 Alexis Quijano MD Emergency Provider Active Star t: September 24, 2024 Dr. Aggie Bolton MD Admit Provider Active St art: September 24, 2024 Dr. Aggie Bolton MD Other Provider Active St art: September 24, 2024 Dr. Froy Velázquez DO Attending Provider Active Start: September 24, 2024 Dr. Froy Velázquez DO Other Provider Active Star t: September 24, 2024 Team Status: Active Member Role Status Dates Dr. Erica Richardson DO Primary Care Provider Active Start: September 25, 2024 Alexis Quijano MD Emergency Provider Active Star t: September 25, 2024 Dr. Aggie Bolton MD Admit Provider Active St art: September 25, 2024 Dr. Aggie Bolton MD Other Provider Active St art: September 25, 2024 Dr. Froy Velázquez DO Attending Provider Active Start: September 25, 2024 Dr. Froy Velázquez DO Other Provider Active Star t: September 25, 2024 Goals (unrecognized section and content) Goals [...] BE BASED ON THE PRIMARY CLINICAL RECORDS. [facility] [employer] [facility]. provides no warranty or guarantee of the accuracy or completeness of information in this document.
[2024-09-26 15:16] VITALS: BP 138/74; PULSE 67; RESP 15; O2SAT 99
[2024-09-26 15:33] VITALS: BP 138/74; PULSE 67; RESP 15; TEMP 36.6; O2SAT 99
== END 2024-09-26 16:16 | disposition home or self-care (01) ==
PROVIDERS: Emergency Provider Emergency Medicine; PCP Internal Medicine; Visit Provider Emergency Medicine
DX: S42.032A Displaced fracture of lateral end of left clavicle, initial encounter for closed fracture (principal); Z87.891 Personal history of nicotine dependence; I10 Essential (primary) hypertension; W19.XXXA Unspecified fall, initial encounter; K21.9 Gastro-esophageal reflux disease without esophagitis; E78.00 Pure hypercholesterolemia, unspecified
CPT/HCPCS: 73000; 73030; 99284

== ENCOUNTER → 2024-11-13 | Outpatient (CLI) | payer MEDICARE, BC, SELFPAY ==
[2024-11-13 13:00] LABS: Mucous, Urine 0 SEEN /hpf (<or=2+); Red Blood Cells-Urine 0 SEEN /hpf (0-5); Squamous Epithelial Cells - UA 0 SEEN /hpf (5-10)
[2024-11-13 13:20] LABS: Color, Urine Straw (Yellow); Glucose, Dipstick Normal (Normal); Ketone-Dipstick Negative (Negative); Leukocyte Esterase-Dipstick 500 /ul (Negative); Nitrite-Dipstick Negative (Negative); Occult Blood-Urine 250 /ul (Negative); Protein-Dipstick 100 mg/dl (Negative); Specific Gravity, Urine 1.010 (1.002-1.030); Urine Bilirubin Dipstick Negative (Negative)
== END | disposition home or self-care (01) ==
LOC: LABSPEC 12:45
PROVIDERS: PCP Internal Medicine; Referring Provider Family Medicine; Visit Provider Family Medicine
DX: R35.0 Frequency of micturition (principal); Z87.440 Personal history of urinary (tract) infections
CPT/HCPCS: 81001

== ENCOUNTER → 2024-11-25 | Outpatient (CLI) | payer MEDICARE, BC, SELFPAY ==
--- OUTSIDE RECORDS SUMMARY | 2024-11-25 22:40 | XMS RPT_ITS | CCD ---
Author Organization [facility] Care Team Providers Care Staff [employer] Officer Name Role Phone Unavailable Primary Care Provider Erica Moses DO Primary Care Provider [phone] Dr. Erica Richardson Primary Care Provider Dr. Erica Richardson Referring Provider Dr. Don Gallegos Attending Provider [phone] Don Gallegos Attending Provider Alcides WOUND SPECIALIST, WOUND SPECIALIST-C Aiden Attending Provider Kyav Dr. Erica Batista Primary Care Provider Erica Richardson DO Primary Care Provider [phone] Erica Richardson DO Primary Care Provider [phone] ERICA RICHARDSON Primary Care Unavailable DEBRA, ERICA Shannon Primary Care Unavailable BOAZ GRIMALDO Referring Unavailable DEBRA, ERICA Shannon Referring Unavailable ALL TSANG Attending Unavailable ERICA RICHARDSON Primary Care Unavailable DEBRA, ERICA Shannon Primary Care Unavailable SHERICE ROSENBERG Attending Unavailable ERICA RICHARDSON Primary Care Unavailable SAUNDRA HORNER Consulting Unavailab ROJAS Kimball Attending DENYS Johnston Admitting Unavailable Dr. Erica Richardson Primary Care Provider Alcides WOUND SPECIALIST, WOUND SPECIALIST-C Aiden Attending Provider Unav Erica Batista DO Primary Care Provider Dr. Froy Simmons Attending Provider Dr. Erica Richardson Primary Care Provider Dr. Froy Simmons Attending Provider Liborioys, Dr. Maldonado Referring Provider Liborioys, Dr. Maldonado Primary Care Provider Dr. Katie Randle Emergency Provider Darío, Dr. Portillo Admit Provider Darío, Dr. Portillo Attending Provider Darío, Dr. Portillo Other Provider Malys, Dr. Maldonado Primary Care Provider Dr. Jorge Cardona Emergency Provider Dr. Aggie Bolton Attending Provider Dr. Aggie Bolton Admit Provider Dr. Aggie Bolton Other Provider Dr. Froy Velázquez Attending Provider Dr. Froy Velázquez Other Provider Dr. Vernon Osman Other Provider Unavailable Debra JACKSON, Erica Shannon Primary Care Provider Debra, Dr. Maldonado Primary Care Provider Dr. Jorge Cardona Emergency Provider Dr. Aggie Bolton Attending Provider Dr. Aggie Bolton Admit Provider Dr. Aggie Bolton Other Provider Dr. Froy Velázquez Attending Provider Dr. Froy Velázquez Other Provider Dr. Vernon Osman Other Provider Unavailable PROVIDER, UNKNOWN Admitting Unavailable PROVIDER, UNKNOWN Attending Unavailable Malys DO, Erica A Primary Care Provider MALYS, ERICA A Primary Care Unavailable DENYS BOLDEN Referring Unavailable MALYS, ERICA A Primary Care Unavailable MALYS, ERICA A Primary Care Unavailable MALYS, ERICA A Primary Care Unavailable MALYS, ERICA A Primary Care Unavailable MALYS, ERICA A Primary Care Unavailable Malys DO, Dr. Maldonado Primary Care Provider Malys DO, Dr. Maldonado Attending Provider Malys DO, Dr. Maldonado Referring Provider Schwalexandria DO, Dr. Mcduffie Emergency Provider Malys DO, Dr. Maldonado Primary Care Provider Malys DO, Dr. Maldonado Attending Provider Malys DO, Dr. Maldonado Referring Provider [facility] DO, Dr. Mcduffie Attending Provider Leia Martinez A Other Provider Unavailable Liboriohattie DO, Dr. Maldonado Primary Care Provider Malys DO, Dr. Maldonado Attending Provider Alexis Quijano MD Emergency Provider Che CRAMER, Dr. Aggie Moreno Admit Provider Che CRAMER, Dr. Aggie Moreno Other Provider Melania JACKSON, Dr. Mcduffie Attending Provider Melania JACKSON, Dr. Mcduffie Other Provider Brendon JACKSON, Dr. Wilkins Emergency Provider Arely CRAMER, Dr. Carrion Primary Care Provider Che CRAMER, Dr. Aggie Moreno Attending Provider Debra JACKSON, Dr. Maldonado Primary Care Provider Malys DO, Dr. Maldonado Attending Provider Liboriohattie DO, Dr. Maldonado Referring Provider Dr. Franky Olivas DO Attending Provider Sheyla Mcgee MD Attending Provider Unavailshiva Mcgee MD, Sheyla Referring Provider Avinash Mcgrath NP-C, Aiden Attending Provider Arely CRAMER, Dr. Carrion Attending Provider Aykaa CRAMER, Dr. Iyer Attending Provider [phone] Malys, Erica Attending Unavailable Malys, Erica Primary Care Unavailable Malys, Erica Referring Unavailable Malys, Erica Attending Unavailable Oleghe, Efewongbe Primary Care Unavailable Malys, Erica Referring Unavailable Malys, Erica Attending Unavailable Malys, Erica Primary Care Unavailable Malys, Erica Primary Care Unavailable Jonnie Cameronic Attending Unavailable Cheikh Ybarra Attending Unavailable Malys, Erica Primary Care Unavailable Jorge Cardona Attending Unavailable Malys, Erica Primary Care Unavailable White, Aggie L Consulting Unavailable White, Aggie L Admitting Unavailable Jopperi, Froy Attending Unavailable Malys, Erica Primary Care Unavailable Malys, Erica Primary Care Unavailable Malys, Erica Attending Unavailable Tickton WOUND SPECIALIST, Aiden Attending Unavailable Oleghe, Efewongbe Primary Care Unavailable Tickton WOUND SPECIALIST, Aiden Attending Unavailable Oleghe, Efewongbe Primary Care Unavailable Oleghe, Efewongbe Primary Care Unavailable Oleghe, Efewongbe Attending Unavailable Tickton WOUND SPECIALIST, Aiden Attending Unavailable Oleghe, Efewongbe Primary Care Unavailable Oleghe OLS, Efewongbe Attending Unavailabl e Oleghe, Efewongbe Primary Care Unavailable Oleghe OLS, Efewongbe Attending Unavailabl e Oleghe, Efewongbe Primary Care Unavailable Oleghe OLS, Efewongbe Referring Unavailabl e Oleghe OLS, Efewongbe Attending Unavailabl e Oleghe, Efewongbe Primary Care Unavailable Malys, Erica Primary Care Unavailable Malys, Erica Referring Unavailable Malys, Erica Attending Unavailable Malys, Erica Referring Unavailable Malys, Erica Attending Unavailable Malys, Erica Primary Care Unavailable Oleghe OLS, Efewongbe Attending Unavailabl e Oleghe, Efewongbe Primary Care Unavailable Oleghe, Efewongbe Primary Care Unavailable Franky Olivas Attending Unavailable White, Aggie L Admitting Unavailable White, Aggie L Consulting Unavailable Malys, Erica Primary Care Unavailable Jopperi, Froy Attending Unavailable Jopperi, Froy Consulting Unavailable [place]ickton WOUND SPECIALIST, Aiden Attending Unavailable Oleghe, Efewongbe Primary Care Unavailable White, Aggie L Attending Unavailable Oleghe OLS, Efewongbe Attending Unavailabl e Oleghe, Efewongbe Primary Care Unavailable Oleghe, Sheyla Primary Care Unavailable Malys, Erica Attending Unavailable Malys, Erica Primary Care Unavailable Malys, Erica Referring Unavailable Leia Martinez Consulting Unavailable Malys, Erica Attending Unavailable Malys, Erica Primary Care Unavailable Malys, Erica Referring Unavailable Malys, Erica Attending Unavailable Allergies Allergy Classification Reported Allergen(s) Allergy Type Date of Onset Reaction(s) Facility (1 source) Antihistamines, Diphenhydramine-Ty pe Propensity to adverse reactions to drug 04-16-20 20 Palpitations [place] (20 sources) bacitracin / neomycin / polymyxin b; Translations: [NEOMYCIN-BACITRAC IN-POLYMYXIN] Drug Allergy 08-15-19 07 [facility] Work Phone: (20 sources) diphenhydrAMINE; Translations: [DIPHENHYDRAMINE HCL] Drug Allergy 10-28-19 13 [facility] (20 sources) Propylamine derivative antihistamine; Translations: [ANTIHISTAMINES - ALKYLAMINE] Propensity to adverse reactions 10-07-19 08 Intolerance [facility] (20 sources) Bacitracin Drug Allergy 08-08-19 22 Unknown [facility] (20 sources) Neomycin Drug Allergy 08-08-19 22 Unknown [facility] (20 sources) Polymyxin B Drug Allergy 08-08-19 22 Unknown [facility] (20 sources) diphenhydrAMINE Drug Allergy 01-11-20 22 PT UNSURE OF REACTION [facility] (20 sources) Antihistamines - Alkylamine Allergy to substance 01-11-20 22 PT UNSURE OF REACTION [facility] (1 source) Bacitracin Drug Allergy 09-23-19 25 [facility] (1 source) diphenhydrAMINE Drug Allergy 09-23-19 25 [facility] (1 source) Neomycin Drug Allergy 09-23-19 25 [facility] (1 source) Antihistamines - Alkylamine Drug allergy (disorder) 09-23-19 25 [facility] (1 source) polymyxin B Drug allergy (disorder) 09-23-19 25 [facility] Medications Current Medications Medication Drug [...] every 6 hours as needed for pain. [id number] 200 actuat albuterol 0.09 mg/actuat metered dose inhaler (17 sources) beta2-Adrenergic Agonist Start: 11-23-2022 Albuterol Sulfate (Proventil Hfa) 90 mcg/actuation HFA aerosol inhaler Active 2 NMA INHALATION EVERY 6 HOURS as needed for shortness of breath or wheezing 8.5 0 November 23, 2022 12:00am Start: 11-23-2022 take 1 puff(s) by in halation every six hours Albuterol Sulfate (Proventil Hfa) 90 mcg/actuation HFA aerosol inhaler Active 2 PUFF INHALATION EVERY 6 HOURS 8.5 November 23, 2022 12:00am amLODIPine 5 mg oral tablet (18 sources) Dihydropyridine Calcium Channel Carli Start: 11-22-2022 [...] 09, 2018 10:12am April 09, 2018 1:07pm Disorder of parathyroid gland, 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 Calcium Carb And Citrate-Vitd3 (Citracal-D3 [...] 3:58pm Start: 08-07-2021 take 1 tablet by [facility] once daily Calcium Carb And Citrate-Vitd3 (Citracal-D3 Slow Release) 600 mg-12.5 mcg (500 unit) tablet extended release Active 1 TABLET PO DAILY August 06, 2021 11:00pm Start: 08-07-2021 take 1 tablet by [facility] once daily Calcium Carb And Citrate-Vitd3 (Citracal-D3 Slow Release) 600 mg-12.5 mcg (500 unit) tablet extended release Active 1 TABLET PO DAILY August 07, 2021 12:00am cholecalciferol 0.025 mg oral capsule (20 sources) Vitamin D Start: 11-22-2022 take 1 capsule by mouth once daily Cholecalciferol (Vitamin D3) 25 mcg (1,000 unit) capsule Active 25 ug PO DAILY November 22, 2022 12:00am SUPPLEMENT Start: 05-01-2017 End: 09-09-2019 take 1 capsule [...] 1 tablet by aileen th once daily. dexamethasone phosphate 1 mg/ml ophthalmic solution (20 sources) Corticosteroid Start: 03-09-2021 Dexamethasone Sodium Phosphate 0.1 % drops Active 1 NMA OPHTHALMIC DAILY March 09, 2021 1:00am glaucoma RIGHT EYE Start: 03-09-2021 Dexamethasone Sodium Phosphate Active 1 DRP OPHTHALMIC TWICE A DAY March 09, 2021 1:00am R eye only docusate sodium 100 mg oral capsule (20 sources) Start: 04-16-2020 docusate sodiu m (COLACE) capsule 100 mg Start: 02-13-2019 End: 09-09-2019 take 1 capsule by mouth once daily Docusate Sodium 100 MG capsule Discontinued 100 mg PO DAILY 20 0 February 13, 2019 12:00am September 09, 2019 [...] needed. docusate sodium 50 mg / sennosides, long term 8.6 mg oral tablet (1 source) Start: 0 sennosides-docusate sodium (SENOKOT-S) 8.6-50 MG tablet 2 tablet escitalopram 10 mg oral tablet (18 sources) Serotonin Reuptake Inhibitor Start: 3 take 1 tablet by mouth once daily Escitalopram Oxalate (Lexapro) 10 mg tablet Active 10 mg PO DAILY November 22, 2022 12:00am ANXIETY famotidine 20 mg oral tablet (20 sources) Histamine-2 Receptor Antagonist Start: take 1 tablet by mouth at bedtime Famotidine (Pepcid) 20 mg tablet Active 20 mg PO AT BEDTIME May 19, 2023 1:00am Start: 01-01-2021 End: 11-22-2022 take 1 tablet by mouth twice daily Famotidine (Pepcid) 20 mg tablet Discontinued 20 mg PO TWICE A DAY March 08, 2021 7:35pm November 22, 2022 3:59pm GERD Start: 04-16-2020 famotidine (PE PCID) tablet 20 [...] injection (1 source) Arteriolar Vasodilator Start: 04-16-20 20 hydrALAZINE (APRESOLINE) injection 10 mg 4 ml labetalol hydrochloride 5 mg/ml cartridge (1 source) beta-Adrenergic Carli Start: 04-16-20 20 labetalol (NORMODYNE;TRANDATE ) injection 10 mg lidocaine [...] days. liothyronine sodium 0.005 mg oral tablet (20 sources) l-Triiodothyronine Start: 07-05-19 take 1 tablet by mouth once daily Liothyronine 5 mcg tablet Active 5 ug PO DAILY July 04, 2024 12:00am Start: 11-22-2022 End: 05-19-2023 take 1 tablet by mouth once daily Liothyronine 5 mcg tablet Discontinued 5 ug PO DAILY November 22, 2022 12:00am May 19, 2023 1:30am LORazepam (1 source) Benzodiazepine Start: 04-16-2020 LORazepam (AT VAN) tablet 1 mg Magnesium (20 sources) [...] directed. magnesium oxide 500 mg oral tablet (18 sources) Start: 11-22-2022 take 1 tablet by mouth once daily Magnesium Oxide 500 mg tablet Active 500 mg PO DAILY November 22, 2022 12:00am SUPPLEMENT Start: 11-22-2022 take 1000 mg by mouth [...] TIMES A DAY November 22, 2022 12:00am Dizziness Start: 05-21-2021 End: 11-22-2022 take 1 tablet by mouth every eight hours as needed for dizziness Meclizine 25 MG tablet Discontinued 25 mg PO EVERY 8 HOURS NEEDED as needed for Dizziness 20 May 21, 2021 6:18pm November 22, 2022 [...] hydrochloride 5 mg oral tablet (20 sources) C-wpeibr-I-aspartate Receptor Antagonist Start: 3 take 1 tablet [...] daily at bedtime. meropenem 1000 mg injection (9 sources) Penem Antibacterial Start: 09-26-19 25 take 1 g intravenously every eight hours Meropenem 1 gram Recon Soln Active 1 g IV EVERY 8 HOURS 20 0 September 25, 2024 12:00am 1 ml morphine sulfate 4 mg/ml cartridge (1 source) Opioid Agonist Start: 04-16-20 20 morphine (PF) injection 1 mg nabumetone 750 mg oral tablet (20 sources) Nonsteroidal Anti-inflammatory Drug Start: 11-23-19 take [...] inje ction 32.5 mg polyethylene glycol 3350 [id number] mg powder for oral solution (20 sources) [...] Drop in both e yes as needed. Promethazine (1 source) Phenothiazine Start: 04-16-20 20 promethazine (PHENERGAN) tablet 12.5 mg QUEtiapine 25 mg oral tablet (20 sources) Atypical Antipsychotic Start: 07-05-19 25 take 1 tablet by mouth at bedtime Quetiapine 25 mg tablet Active 25 mg PO AT BEDTIME July 04, 2024 12:00am Start: 11-22-2022 End: 09-25-2024 Quetiapine 100 mg tablet Dis continued 25 mg PO DAILY November 22, 2022 12:00am September 25, 2024 10:29am DEPRESSION Start: 11-22-2022 take 25 mg by mouth [...] on above: Take 1 tablet by aileen three times daily for 3 days. sulfamethoxazole [...] 11, 2021 1:00am July 04, 2024 1:25pm PAIN Start: 06-11-2021 take 1 tablet by aileen [...] 08, 2021 1:00am March 09, 2021 5:10pm PAIN Start: 03-08-2021 End: 03-09-2021 take 1 tablet [...] Discontinued 1 {tbl} PO EVERY 6 HOURS 0 May 01, 2017 1:00am September 09, 2019 [...] needed for Pain Or Fever 12 3 0 February 13, 2019 February 15, 2019 12:00am February 19, 2019 12:10am Compression fracture of thoracic vertebra Start: 02-13-2019 End: 02-19-2019 take 1 tablet by mouth every six hours as needed Oxycodone-Acetaminophen Discontinued 1 TABLET PO EVERY 6 HOURS NEEDED 12 3 February 13, 2019 February 19, 2019 12:10am Start: 05-29-2018 End: 06-01-2018 Oxycodone-Acetaminophen 1 TA BLET tablet Discontinued 1 - 2 {tbl} PO EVERY 6 HOURS NEEDED as needed for Pain 15 3 0 May 29, 2018 1:00am May 31, 2018 1:00am June 01, 2018 1:09am Fracture of right shoulder Start: 05-29-2018 End: 06-01-2018 take 1 tablet [...] on above: Take 1 capsule by mo [facility] three times daily as needed for cough. busPIRone hydrochloride 5 mg oral tablet (20 sources) Start: 08-02-19 End: 11-23-19 Buspirone 5 mg tablet Discontinued 5 NMA PO DAILY August 01, 2020 12:00am November 22, 2022 3:57pm MOOD Start: 08-01-2020 End: 11-22-2022 take 5 tablets [...] mg-12.5 mcg (500 unit) tablet extended release (13 sources) Start: 08-07-2021 End: 11-22-2022 Calcium Carb, Citrate-Vit D3 (Citracal-D3 Slow Release) 600 mg-12.5 mcg (500 unit) tablet extended release Discontinued 1 {tbl} PO DAILY 1 0 August 07, 2021 12:00am November 22, 2022 3:58pm Start: 08-07-2021 End: 11-22-2022 Calcium Carb, Citrate-Vit [...] on above: Take 2 tablets by mo [facility] once daily. calcium gluconate 1 g in dextrose 5 % 100 mL IVPB (1 source) Start: 04-17-20 End: 04-17-20 calcium gluconate 1 g in dextrose 5 % 100 mL IVPB calcium polycarbophil 625 mg oral tablet (20 sources) Start: 05-01-19 End: 09-09-19 Calcium Polycarbophil (Fiber (Calcium Polycarbophil)) 625 mg tablet Discontinued 0 PO .COMPLEX May 01, 2017 1:00am September 09, 2019 8:43pm 4-5 tabs PO 2-3 x qd ciprofloxacin 500 mg oral tablet (20 sources) Quinolone Antimicrobial Start: 10-21-19 16 End: 05-01-19 18 take 1 tablet by mouth twice daily Ciprofloxacin Hcl 500 MG tablet Discontinued 500 mg PO TWICE A DAY 14 0 October 21, 2015 12:00am May 01, 2017 10:19am clonazePAM 1 mg oral tablet (20 sources) Benzodiazepine Start: 03-03-20 End: 11-07-19 25 take 1 tablet by mouth twice daily Clonazepam 1 mg tablet Discontinued 1 mg PO TWICE A DAY 60 30 0 October 07, 2024 1:34pm November 05, 2024 12:00am 2024 12:07am Chronic anxiety Anxiety disorder, unspecified Start: 08-01-2020 End: 03-03-2022 take 1 tablet [...] Discontinued (Dosage adjustment) take 1 tablet by ialeen five times daily as needed clonazePAM (KLONOPIN) 1 mg tablet Take 1 mg by mouth. Take one tablet by mouth five times a day as needed Active Comment on above: Take one tablet by [facility] four times daily as needed. Take 1 mg by mouth. Take one tablet by mouth five times a day as needed COMPOUNDED PRESCRIPTION (15 sources) Start: 11-13-2012 End: 10-10-2021 COMPOUNDED PRESCRIPTION Indications: Breast cancer (HCC) L8030 [...] DAILY NEEDED as needed for Muscle Spasm 10 0 March 09, 2021 1:00am November 22, 2022 3:59pm doxycycline hyclate 100 mg oral tablet (1 source) Tetracycline-cla ss Drug Start: 11-23-19 End: 08-03-20 23 take 1 tablet by mouth twice daily doxycycline (VIBRA-TABS) 100 mg tablet Take 1 tablet by mouth twice daily for 7 days. 14 tablet 0 11/22/2022 11/22/2022 Discontinued (Course of therapy completed) Comment on above: Take 1 tablet by aileen th twice daily for 7 days. Fiber (11 [...] 01, 2020 12:00am November 22, 2022 3:59pm SUPPLEMENT Start: 08-01-2020 End: 11-22-2022 Folic Acid-Vit B6-Vit [...] 01, 2020 12:00am November 22, 2022 4:06pm HEART Start: 05-01-2017 End: 09-09-2019 take 1 tablet [...] oral tablet (20 sources) Aromatase Inhibitor Start: 021 End: take 1 tablet by mouth once daily Letrozole 2.5 mg tablet Discontinued 2.5 mg PO DAILY August 01, 2020 12:00am November 22, 2022 4:00pm levoFLOXacin 750 mg oral tablet (15 sources) Quinolone Antimicrobial Start: End: take 1 tablet by mouth once daily Levofloxacin 750 mg Tablet Discontinued 750 mg PO DAILY@0600 6 0 May 21, 2023 1:00am September 25, 2024 [...] mcg tablet Discontinued 125 ug PO DAILY 90 0 February 19, 2023 9:25am September 25, 2024 10:27am Comment on above: Take 125 mcg by mout h once daily. lisinopril 10 mg oral tablet (20 sources) Angiotensin Converting Enzyme Inhibitor Start: End: take 1 tablet by mouth once daily Lisinopril 10 mg tablet Discontinued 10 mg PO DAILY March 08, 2021 1:00am November 22, 2022 4:01pm BP Comment on above: Take 10 mg by [...] capsule (20 sources) Tricyclic Antidepressant Start: End: 023 take 1 capsule by mouth at bedtime Nortriptyline 50 mg capsule Discontinued 50 mg PO AT BEDTIME August 01, 2020 12:00am November 22, 2022 4:01pm DEPRESSION Start: 05-11-2015 End: 10-17-2021 take 2 capsules [...] HOURS as needed for pain 12 3 0 March 03, 2022 March 05, 2022 1:00am March 06, 2022 1:04am Closed fracture of left humerus Fracture of humerus Start: 04-16-2020 oxyCODONE (ANAIS ICODONE) immediate release tablet 5 mg Start: 09-09-2019 End: 09-16-2019 take 2 tablets by mouth every six hours as needed for pain Oxycodone 5 MG tablet Discontinued 10 mg PO EVERY 6 HOURS NEEDED as needed for Pain Score 6-10/10 28 7 0 September 09, 2019 September 15, 2019 12:00am September 16, 2019 12:02am Rheumatoid arthritis Rheumatoid arthritis, unspecified Start: 09-09-2019 End: 09-16-2019 take 10 mg [...] TWICE DAILY NEEDED as needed for Pain 10 0 October 21, 2015 12:00am May 01, 2017 10:19am Start: 02-10-2015 End: 10-10-2021 take 1 tablet by mouth every eight hours as needed phenazopyridine (PYRIDIUM) 200 mg tablet Take 1 tablet by mouth three times daily as needed. 90 tablet 4 02/10/2015 10/10/2021 Discontinued (Other) Comment on above: Take 1 tablet by aileen three times daily as needed. potassium chloride [...] 01, 2020 12:00am July 04, 2024 1:25pm SUPPLEMENT Start: 08-01-2020 take 40 mEq by mouth [...] MEQ tablet Discontinued 20 meq PO DAILY 10 0 May 19, 2019 1:00am September 09, 2019 [...] oral capsule (20 sources) Start: 03-03-2022 End: 10-25-2024 take 1 capsule by mouth three times daily Pregabalin 75 mg capsule Discontinued 75 mg PO THREE TIMES A DAY 90 30 0 September 25, 2024 12:10pm October 24, 2024 12:00am October 25, 2024 12:07am Neuropathic pain Neuralgia and neuritis, unspecified PAIN Start: 03-08-2021 End: 11-22-2022 take 1 capsule by mouth twice daily Pregabalin 50 mg capsule Discontinued 50 mg PO TWICE A DAY March 08, 2021 1:00am November 22, 2022 4:02pm PAIN Start: 05-01-2017 End: 09-09-2019 take 1 capsule [...] 75 mg by mouth twice daily. valACYclovir 1000 mg oral tablet (20 sources) Herpesvirus Nucleoside Analog DNA Polymerase Inhibitor, Herpes Simplex Virus Nucleoside Analog DNA Polymerase Inhibitor, Herpes Zoster Virus Nucleoside Analog DNA Polymerase Inhibitor Start: 08-01-2020 End: 09-25-2024 Valacyclovir 1 gram tablet Discontinued 1000 mg PO DAILY August 01, 2020 12:00am September 25, 2024 10:29am SHINGLES Start: 08-01-2020 take 1000 mg by mout [...] tablet by aileen th once daily. Vitamins A,C,G-Wvuu-Umorsa (Preservision Areds) 14,320-226-200 xnxi-wq-bxxu capsule (20 sources) Start: 05-01-2017 End: 09-09-2019 take 1 capsule by mouth once daily Vitamins A,C,Y-Kzvn-Lmvpyp (Preservision Areds) 14,320-226-200 zipj-zu-esfa capsule Discontinued 1 CAP PO DAILY May 01, 2017 10:26am September 09, 2019 8:44pm Start: 05-01-2017 End: 09-09-2019 Vitamins A,C,G-Yfzd-Xyyhtb (Preservision Areds) 14,320-226-200 wzge-hv-mnyg capsule Discontinued 1 NMA PO DAILY 0 May 01, 2017 1:00am September 09, 2019 8:44pm Start: 05-01-2017 End: 09-09-2019 Vitamins A,C,B-Vekl-Lvgqxf (Preservision Areds) 14,320-226-200 xmxp-qu-owvl capsule Discontinued 1 NMA PO DAILY May 01, 2017 1:00am September 09, 2019 8:44pm Start: 05-01-2017 End: 09-09-2019 take 1 capsule by mouth once daily Vitamins A,C,B-Mjgx-Aslzku (Preservision Areds) 14,320-226-200 cvff-yq-otur capsule Discontinued 1 CAP PO DAILY May 01, 2017 12:00am September 09, 2019 7:44pm Start: 05-01-2017 End: 09-09-2019 take 1 capsule by mouth once daily Vitamins A,C,N-Jsol-Kjzzzo (Preservision Areds) 14,320-226-200 mwah-wi-hhnt capsule Discontinued 1 CAP PO DAILY May [...] 3 Resolved: 3 01-20-2015 Chronic Cardiac dysrhythmias (13 sources) Juliana rhythm disorder; Translations: [Other specified [...] for closed fracture] Onset: 2 10-07-2021 Episodic Genitourinary symptoms and ill-defined conditions (20 sources) Pyuria; Translations: [Pyuria] Onset: 5 05-19-2023 Episodic Immunizations and screening for infectious disease [...] Onset: 5 05-28-2016 Chronic Other circulatory disease (16 sources) Low blood pressure; Translations: [Hypotension, unspecified] 05-19-2023 Episodic Other circulatory disease (3 sources) Hypotension, unspecified; Translations: [Hypotension, unspecified] 05-19-2023 Episodic Other connective tissue disease (20 sources) Neuropathic pain; Translations: [Neuralgia and neuritis, [...] fracture with routine healing] Episodic Other fractures (14 sources) Fracture of left rib; Translations: [Fracture [...] conditions due to external causes (20 sources) Wound finding; Translations: [Other injury of unspecified body region, initial encounter] 07-02-2022 Episodic Other injuries and conditions due to external causes (16 sources) Systemic inflammatory response syndrome; Translations: [Systemic [...] subsequent encounter] 03-17-2021 Episodic Other liver diseases (20 sources) Increased creatine kinase level; Translations: [Abnormal levels of other serum enzymes] 09-22-2024 Episodic Other liver diseases (1 source) Abnormal levels of other serum enzymes; Translations: [Abnormal levels of other serum enzymes] Onset: Episodic Other lower respiratory disease (20 sources) Cough; Translations: [Cough] 11-22-2022 Episodic Other lower respiratory disease (18 sources) Hypoxia; Translations: [Hypoxemia] 11-22-2022 Episodic Other lower respiratory disease (2 sources) Hypoxemia; Translations: [Hypoxemia] 11-22-2022 Episodic Other lower respiratory disease (1 source) Dyspnea; Translations: [Shortness of breath] 11-22-2022 Episodic Other lower respiratory disease (17 sources) Dyspnea on exertion; Translations: [Other forms of dyspnea] 11-22-2022 Episodic Other lower respiratory disease (1 source) Other forms of dyspnea; Translations: [Other respiratory abnormalities] 11-23-2022 Episodic Other nervous system disorders (20 sources) Neuropathy; 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 Other nervous system disorders (16 sources) Disorder of brain; 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] 05-19-2023 Chronic Other nervous system disorders (3 sources) Other encephalopathy; 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] 05-19-2023 Chronic Other nervous system disorders (20 sources) Unable to walk; Translations: [Difficulty in walking, not elsewhere classified] 09-22-2024 Chronic Other nutritional; endocrine; and metabolic disorders (20 sources) Hypocalcemia; Translations: [Hypocalcemia] Onset: 0 04-17-2021 Chronic Other nutritional; endocrine; and metabolic disorders (16 sources) Ketosis; 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] 05-19-2023 Chronic Other nutritional; endocrine; and metabolic disorders (3 sources) Other specified metabolic disorders; 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] 05-19-2023 Chronic Other screening for suspected conditions (not mental disorders or infectious disease) (18 sources) Creatinine level - finding; Translations: [Other specified abnormal findings of blood chemistry] Onset: 5 05-19-2023 Episodic Other upper respiratory infections (1 [...] 3 07-03-2012 Chronic Skull and face fractures (20 sources) Fracture of orbital floor; Translations: [Fracture [...] agranulocytosis] Onset: 07-17-2012 Resolved: 10-03-2012 10-03-2012 Chronic Melanomas of skin (20 sources) History of [...] unspecified cervical vertebral level, initial encounter ([facility])] Onset: 10-07-2021 Episodic Other injuries and conditions due to external causes (19 sources) Unspecified multiple injuries, initial encounter; Translations: [Other specified sites, including multiple injury] Onset: 10-07-2021 10-17-2021 Episodic Other non-epithelial cancer of skin (20 [...] Test Name Value Interpretation Reference Range Facility Bilirubin Test strip Ql (U)O rdered By: Erica Richardson on 11-13-2024 Bilirubin Ql (U) Negative Negative [facility] Ketones Test strip Ql (U)Ord ered By: Erica Richardson on 11-13-2024 Ketones Ql (U) Negative Negative [facility] Microscopic analysis of urin e for red blood cells (RBC)Ordered By: Ericashiva Richardson on 11-13-2024 Microscopic analysis of urine for red blood cells (RBC) 0 SEEN /hpf 0-5 [facility] Mucus LM Ql (Urine sed)Order ed By: Erica Liboriohattie on 11-13-2024 Mucus Ql (Urine sed) 0 SEEN /hpf [facility] Nitrite Test strip Ql (U)Ord ered By: Erica Liboriohattie on 11-13-2024 Nitrite Ql (U) Negative Negative [facility] Protein Test strip Ql (U)Ord ered By: Erica Richardson on 11-13-2024 Protein Ql (U) 100 mg/dl High Negative [facility] Squamous epithelial cells de tection in urine sediment by light microscopyOrdered By: Erica Richardson on 11-13-2024 Epithelial cells.squamous LM Ql (Urine sed) 0 SEEN /hpf 5- [facility] Urinalysis, Completeon 11-13 WBC >100 SEEN Normal 0-5 [facility] Comment on above: Order Comment: CLEAN CATCH Performed By: #### L [id number], [id number], L100.0100 #### [facility] [address] [place], [address] BACTERIA 0 SEEN Normal None Seen [facility] Comment on above: Order Comment: CLEAN CATCH Performed By: #### L [id number], [id number], L100.0100 #### [facility] [address] [place], [address] EPI,SQUAMOUS 0 SEEN Normal - [facility] Comment on above: Order Comment: CLEAN CATCH Performed By: #### L [id number], [id number], L100.0100 #### [facility] [address] [place], [address] Mucus Ql (Urine sed) 0 SEEN Normal [facility] Comment on above: Order Comment: CLEAN CATCH Performed By: #### L [id number], [id number], [id number] #### [facility] [address] [place], [address] RBC 0 SEEN Normal 0-5 [facility] Comment on above: Order Comment: CLEAN CATCH Performed By: #### L [id number], [id number], [id number] #### [facility] [address] [place], [address] Urine clarityOrdered By: Elena Richardson on 11-13-2024 Clarity (U) Cloudy Clear [facility] Urine color determinationOrd ered By: Erica Richardson on 11-13-2024 Color (U) Straw Yellow [facility] Urine glucose detectionOrder ed By: Erica Richardson on 11-13-2024 Glucose Ql (U) Normal mg/dl Normal [facility] Urine leukocyte esterase det ection by dipstickOrdered By: Erica Richardson on 11-13-2024 Leukocyte esterase Test strip Ql (U) 500 /ul High Negative [facility] Urine pHOrdered By: Erica kuhn on 11-13-2024 pH (U) 7.0 [pH] 5.0 - 8.0 [facility] Urine sediment bacteria coun t by microscopy (number/high power field)Ordered By: Erica Richardson on 11-13-2024 Bacteria LM.HPF (Urine sed) [#/Area] 0 /[HPF] None Seen [facility] Urine specific gravity measu rementOrdered By: Erica Richardson on 11-13-2024 Specific gravity (U) [Rel density] 1.010 1.002-1.030 [facility] Urine urobilinogen measureme ntOrdered By: Erica Richardson on 11-13-2024 Urobilinogen Ql (U) Normal mg/dl Normal [facility] White blood cell countOrdere d By: Eirca Richardson on 11-13-2024 White blood cell count >100 SEEN /hpf 0-5 [facility] Absolute lymphocyte countOrd ered By: Sheyla Mcgee on 10-26-2024 Lymphocytes Auto (Unsp spec) [#/Vol] 1.94 10*3/uL 0.83-4.51 [facility] Absolute neutrophil countOrd ered By: Sheyla Mcgee on 10-26-2024 Neutrophils (Bld) [#/Vol] 4.5 10*3/uL 2.0-7.7 [facility] Anion gap in Serum or Plasma Ordered By: Sheyla Mcgee on 10-26-2024 Anion gap [Moles/Vol] 13 mmol/L 5-15 [facility] Automated lymphocyte count a s percentage of total leukocytesOrdered By: Sheyla Mcgee on 10-26-2024 Lymphocytes/100 WBC Auto (Unsp spec) 25.1 % 19-41 [facility] BUN/creatinine ratioOrdered By: Sheyla Mcgee on 10-26-2024 Urea nitrogen/Creatinine [Mass ratio] 23.7 mg/mg High 10-20 [facility] Basophil percentageOrdered B y: Sheyla Mcgee on 10-26-2024 Basophils/100 WBC (Bld) 1.2 % High 0-1 [facility] Carbon dioxide, total [Moles /volume] in Central venous bloodOrdered By: Sheyla Mcgee on 10-26-2024 CO2 [Moles/Vol] 24.2 mmol/L 21.0-32.0 [facility] Chloride assayOrdered By: Francisco Mcgee on 10-26-2024 Chloride [Moles/Vol] 102 mmol/L 98-108 [facility] Eosinophil percentageOrdered By: Sheyla Mcgee on 10-26-2024 Eosinophils/100 WBC (Bld) 5.7 % High 0-5 [facility] Erythrocyte distribution wid th ratioOrdered By: dorian Mcgee on 10-26-2024 Erythrocyte distribution width (RBC) [Ratio] 13.2 % 11.6-14.6 [facility] Erythrocyte distribution wid th standard deviationOrdered By: aaronpleasantvillekateryna Mcgee on 10-26-2024 Erythrocyte distribution width (RBC) [Ratio] 47.5 fl High 35.1-43.9 [facility] Glomerular filtration rate ( GFR) estimation/1.73 sq m using serum, plasma, or whole bOrdered By: Sheyla Mcgee on 10-26-2024 GFR/1.73 sq M.predicted among non-blacks MDRD (S/P/Bld) [Vol rate/Area] 88 mL/min/{1.73_m2} >60 [facility] Comment on above: mL/min/1.73m2 CKD-EP I Creatinine Equation (2020) Hematocrit Auto (Bld) [Volum e fraction]Ordered By: Sheyla Mcgee on 10-26-2024 Hematocrit (Bld) [Volume fraction] 34.5 % Low 37-47 [facility] Hemoglobin measurementOrdere d By: [facility] Mc[facility] on 10-26-2024 Hemoglobin (Bld) [Mass/Vol] 10.9 g/dL Low 12.0-15.0 [facility] Immature granulocytes/100 WB C Auto (Bld)Ordered By: aaronpleasant[place]kateryna Mcgee on 10-26-2024 Immature granulocytes/100 WBC (Bld) 0.600 % 0.0-0.9 [facility] Comment on above: IG% - Immature Granu locytes (promyelocytes, myelocytes and metamyelocytes) > 1% indicates that a LEFT SHIFT is Present. MCV (mean corpuscular volume ) determinationOrdered By: Sheyla Mcgee on 10-26-2024 MCV (RBC) [Entitic vol] 98.3 fL 81-99 [facility] Mean corpuscular hemoglobin (MCH) determinationOrdered By: aaronpleasantvillekateryna Mcgee on 10-26-2024 MCH (RBC) [Entitic mass] 31.1 pg 27.0-32.0 [facility] Mean corpuscular hemoglobin concentration (MCHC) determinationOrdered By: aaronpleasant[place]kateryna Mcgee on 10-26-2024 MCHC (RBC) [Mass/Vol] 31.6 g/dL Low 32-36 [facility] Mean platelet volume determi nationOrdered By: Sheyla Mcgee on 10-26-2024 Platelet mean volume (Bld) [Entitic vol] 11.8 fL 6.2-12.0 [facility] Monocyte percentageOrdered B y: Sheyla Mcgee on 10-26-2024 Monocytes/100 WBC (Bld) 9.2 % 0-10 [facility] Neutrophil percentageOrdered By: Sheyla Mcgee on 10-26-2024 Neutrophils/100 WBC (Bld) 58.2 % 47-70 [facility] Nucleated red blood cell per centageOrdered By: Sheyla Mcgee on 10-26-2024 Nucleated RBC/100 WBC (Bld) [Ratio] 0 % 0-5 [facility] Platelet countOrdered By: Francisco Mcgee on 10-26-2024 Platelets (Bld) [#/Vol] 229 10*3/uL 150-450 [facility] Potassium measurement (mass/ volume)Ordered By: Sheyla Mcgee on 10-26-2024 Potassium (Unsp spec) [Mass/Vol] 4.1 mmol/L 3.3-5.1 [facility] RBC Auto (Bld) [#/Vol]Ordere d By: Sheyla Mcgee on 10-26-2024 RBC (Bld) [#/Vol] 3.51 10*6/uL Low 4.2-5.4 [facility] Serum creatinine measurement (mass/volume)Ordered By: Sheyla Mcgee on 10-26-2024 Creatinine [Mass/Vol] 0.71 mg/dL 0.70-1.20 [facility] Serum glucose measurement (m ass/volume)Ordered By: Sheyla Mcgee on 10-26-2024 Glucose [Mass/Vol] 96 mg/dL 70-99 [facility] Serum or plasma calcium rajni urement (mass/volume)Ordered By: Sheyla Mcgee on 10-26-2024 Calcium [Mass/Vol] 8.3 mg/dL 7.6-11.0 [facility] Serum or plasma urea nitroge n measurement (mass/volume)Ordered By: Sheyla Mcgee on 10-26-2024 Urea nitrogen [Mass/Vol] 17 mg/dL 4-19 [facility] Sodium levelOrdered By: Jonathan Mcgee on 10-26-2024 Sodium [Moles/Vol] 140 mmol/L 133-145 [facility] White blood cell (WBC) count Ordered By: Sheyla Mcgee on 10-26-2024 WBC (Bld) [#/Vol] 7.7 10*3/uL 4.4-11.0 [facility] Absolute lymphocyte countOrd ered By: Sheyla Mcgee on 10-19-2024 Lymphocytes Auto (Unsp spec) [#/Vol] 1.60 10*3/uL 0.83-4.51 [facility] Absolute neutrophil countOrd ered By: dorian Mcgee on 10-19-2024 Neutrophils (Bld) [#/Vol] 4.9 10*3/uL 2.0-7.7 [facility] Anion gap in Serum or Plasma Ordered By: Sheyla Mcgee on 10-19-2024 Anion gap [Moles/Vol] 12 mmol/L 5-15 [facility] Automated lymphocyte count a s percentage of total leukocytesOrdered By: Sheyla Donnellyabdirahman on 10-19-2024 Lymphocytes/100 WBC Auto (Unsp spec) 20.6 % 19-41 [facility] BUN/creatinine ratioOrdered By: aaronpleasant[place]kateryna Mcgee on 10-19-2024 Urea nitrogen/Creatinine [Mass ratio] 18.3 mg/mg 10-20 [facility] Basophil percentageOrdered B y: Sheyla Mcgee on 10-19-2024 Basophils/100 WBC (Bld) 0.8 % 0-1 [facility] Carbon dioxide, total [Moles /volume] in Central venous bloodOrdered By: dorian Mcgee on 10-19-2024 CO2 [Moles/Vol] 26.1 mmol/L 21.0-32.0 [facility] Chloride assayOrdered By: dorian Donnellyabdirahman on 10-19-2024 Chloride [Moles/Vol] 103 mmol/L 98-108 [facility] Eosinophil percentageOrdered By: dorian Mcgee on 10-19-2024 Eosinophils/100 WBC (Bld) 6.3 % High 0-5 [facility] Erythrocyte distribution wid th ratioOrdered By: dorian Donnellyabdirahman on 10-19-2024 Erythrocyte distribution width (RBC) [Ratio] 13.2 % 11.6-14.6 [facility] Erythrocyte distribution wid th standard deviationOrdered By: Sheyla Mcgee on 10-19-2024 Erythrocyte distribution width (RBC) [Ratio] 47.0 fl High 35.1-43.9 [facility] Glomerular filtration rate ( GFR) estimation/1.73 sq m using serum, plasma, or whole bOrdered By: Sheyla Mcgee on 10-19-2024 GFR/1.73 sq M.predicted among non-blacks MDRD (S/P/Bld) [Vol rate/Area] 90 mL/min/{1.73_m2} >60 [facility] Comment on above: mL/min/1.73m2 CKD-EP I Creatinine Equation (2020) Hematocrit Auto (Bld) [Volum e fraction]Ordered By: Sheyla Mcgee on 10-19-2024 Hematocrit (Bld) [Volume fraction] 35.7 % Low 37-47 [facility] Hemoglobin measurementOrdere d By: Sheyla Mcgee on 10-19-2024 Hemoglobin (Bld) [Mass/Vol] 11.7 g/dL Low 12.0-15.0 [facility] Immature granulocytes/100 WB C Auto (Bld)Ordered By: Sheyla Mcgee on 10-19-2024 Immature granulocytes/100 WBC (Bld) 0.400 % 0.0-0.9 [facility] Comment on above: IG% - Immature Granu locytes (promyelocytes, myelocytes and metamyelocytes) > 1% indicates that a LEFT SHIFT is Present. MCV (mean corpuscular volume ) determinationOrdered By: Sheyla Mcgee on 10-19-2024 MCV (RBC) [Entitic vol] 96.2 fL 81-99 [facility] Mean corpuscular hemoglobin (MCH) determinationOrdered By: Sheyla Mcgee on 10-19-2024 MCH (RBC) [Entitic mass] 31.5 pg 27.0-32.0 [facility] Mean corpuscular hemoglobin concentration (MCHC) determinationOrdered By: Sheyla Mcgee on 10-19-2024 MCHC (RBC) [Mass/Vol] 32.8 g/dL 32-36 [facility] Mean platelet volume determi nationOrdered By: Sheyla Mcgee on 10-19-2024 Platelet mean volume (Bld) [Entitic vol] 11.4 fL 6.2-12.0 [facility] Monocyte percentageOrdered B y: Jonathanestivenkateryna Gejuan mabdirahman on 10-19-2024 Monocytes/100 WBC (Bld) 8.5 % 0-10 [facility] Neutrophil percentageOrdered By: Sheyla Mcgee on 10-19-2024 Neutrophils/100 WBC (Bld) 63.4 % 47-70 [facility] Nucleated red blood cell per centageOrdered By: Sheyla Mcgee on 10-19-2024 Nucleated RBC/100 WBC (Bld) [Ratio] 0 % 0-5 [facility] Platelet countOrdered By: Francisco aaroncarl Mcgee on 10-19-2024 Platelets (Bld) [#/Vol] 256 10*3/uL 150-450 [facility] Potassium measurement (mass/ volume)Ordered By: Sheyla Mcgee on 10-19-2024 Potassium (Unsp spec) [Mass/Vol] 3.8 mmol/L 3.3-5.1 [facility] RBC Auto (Bld) [#/Vol]Ordere d By: Sheyla Mcgee on 10-19-2024 RBC (Bld) [#/Vol] 3.71 10*6/uL Low 4.2-5.4 [facility] Serum creatinine measurement (mass/volume)Ordered By: Sheyla Mcgee on 10-19-2024 Creatinine [Mass/Vol] 0.68 mg/dL Low 0.70-1.20 [facility] Serum glucose measurement (m ass/volume)Ordered By: Sheyla Mcgee on 10-19-2024 Glucose [Mass/Vol] 97 mg/dL 70-99 [facility] Serum or plasma calcium rajni urement (mass/volume)Ordered By: Sheyla Mcgee on 10-19-2024 Calcium [Mass/Vol] 8.1 mg/dL 7.6-11.0 [facility] Serum or plasma urea nitroge n measurement (mass/volume)Ordered By: Sheyla Mcgee on 10-19-2024 Urea nitrogen [Mass/Vol] 12 mg/dL 4-19 [facility] Sodium levelOrdered By: Jonathan Mcgee on 10-19-2024 Sodium [Moles/Vol] 141 mmol/L 133-145 [facility] White blood cell (WBC) count Ordered By: Sheyla Mcgee on 10-19-2024 WBC (Bld) [#/Vol] 7.8 10*3/uL 4.4-11.0 [facility] Absolute lymphocyte countOrd ered By: Sheyla Mcgee on 10-12-2024 Lymphocytes Auto (Unsp spec) [#/Vol] 1.84 10*3/uL 0.83-4.51 [facility] Absolute neutrophil countOrd ered By: Sheyla Mcgee on 10-12-2024 Neutrophils (Bld) [#/Vol] 7.6 10*3/uL 2.0-7.7 [facility] Anion gap in Serum or Plasma Ordered By: Sheyla Mcgee on 10-12-2024 Anion gap [Moles/Vol] 14 mmol/L 5-15 [facility] Automated lymphocyte count a s percentage of total leukocytesOrdered By: Sheyla Mcgee on 10-12-2024 Lymphocytes/100 WBC Auto (Unsp spec) 16.7 % Low 19-41 [facility] BUN/creatinine ratioOrdered By: Sheyla Mcgee on 10-12-2024 Urea nitrogen/Creatinine [Mass ratio] 28.8 mg/mg High 10-20 [facility] Basophil percentageOrdered B y: Sheyla Mcgee on 10-12-2024 Basophils/100 WBC (Bld) 0.7 % 0-1 [facility] Carbon dioxide, total [Moles /volume] in Central venous bloodOrdered By: Sheyla Mcgee on 10-12-2024 CO2 [Moles/Vol] 23.6 mmol/L 21.0-32.0 [facility] Chloride assayOrdered By: Francisco Mcgee on 10-12-2024 Chloride [Moles/Vol] 104 mmol/L 98-108 [facility] Eosinophil percentageOrdered By: Sheyla Mcgee on 10-12-2024 Eosinophils/100 WBC (Bld) 5.3 % High 0-5 [facility] Erythrocyte distribution wid th ratioOrdered By: Sheyla Mcgee on 10-12-2024 Erythrocyte distribution width (RBC) [Ratio] 13.2 % 11.6-14.6 [facility] Erythrocyte distribution wid th standard deviationOrdered By: Sheyla Mcgee on 10-12-2024 Erythrocyte distribution width (RBC) [Ratio] 47.8 fl High 35.1-43.9 [facility] Glomerular filtration rate ( GFR) estimation/1.73 sq m using serum, plasma, or whole bOrdered By: Sheyla Mcgee on 10-12-2024 GFR/1.73 sq M.predicted among non-blacks MDRD (S/P/Bld) [Vol rate/Area] 78 mL/min/{1.73_m2} >60 [facility] Comment on above: mL/min/1.73m2 CKD-EP I Creatinine Equation (2020) Hematocrit Auto (Bld) [Volum e fraction]Ordered By: Jonathanpleasant[place]kateryna Mcgee on 10-12-2024 Hematocrit (Bld) [Volume fraction] 38.8 % 37-47 [facility] Hemoglobin measurementOrdere d By: Sheyla Mcgee on 10-12-2024 Hemoglobin (Bld) [Mass/Vol] 12.6 g/dL 12.0-15.0 [facility] Immature granulocytes/100 WB C Auto (Bld)Ordered By: Sheyla Mcgee 10-12-2024 Immature granulocytes/100 WBC (Bld) 0.500 % 0.0-0.9 [facility] Comment on above: IG% - Immature Granu locytes (promyelocytes, myelocytes and metamyelocytes) > 1% indicates that a LEFT SHIFT is Present. MCV (mean corpuscular volume ) determinationOrdered By: Sheyla Mcgee on 10-12-2024 MCV (RBC) [Entitic vol] 98.5 fL 81-99 [facility] Mean corpuscular hemoglobin (MCH) determinationOrdered By: Sheyla Mcgee 10-12-2024 MCH (RBC) [Entitic mass] 32.0 pg 27.0-32.0 [facility] Mean corpuscular hemoglobin concentration (MCHC) determinationOrdered By: Sheyla Mcgee on 10-12-2024 MCHC (RBC) [Mass/Vol] 32.5 g/dL 32-36 [facility] Mean platelet volume determi nationOrdered By: Sheyla Mcgee on 10-12-2024 Platelet mean volume (Bld) [Entitic vol] 11.9 fL 6.2-12.0 [facility] Monocyte percentageOrdered B y: Sheyla Mcgee on 10-12-2024 Monocytes/100 WBC (Bld) 8.4 % 0-10 [facility] Neutrophil percentageOrdered By: Jonathanpleasant[place]kateryna Mcgee on 10-12-2024 Neutrophils/100 WBC (Bld) 68.4 % 47-70 [facility] Nucleated red blood cell per centageOrdered By: Sheyla Mcgee on 10-12-2024 Nucleated RBC/100 WBC (Bld) [Ratio] 0 % 0-5 [facility] Platelet countOrdered By: Francisco aaroncarl Mcgee on 10-12-2024 Platelets (Bld) [#/Vol] 320 10*3/uL 150-450 [facility] Potassium measurement (mass/ volume)Ordered By: Sheyla Mcgee on 10-12-2024 Potassium (Unsp spec) [Mass/Vol] 4.2 mmol/L 3.3-5.1 [facility] Comment on above: Hemolysis present, R esults could be affected. RBC Auto (Bld) [#/Vol]Ordere d By: Sheyla Mcgee on 10-12-2024 RBC (Bld) [#/Vol] 3.94 10*6/uL Low 4.2-5.4 [facility] Serum creatinine measurement (mass/volume)Ordered By: Sheyla Mcgee on 10-12-2024 Creatinine [Mass/Vol] 0.78 mg/dL 0.70-1.20 [facility] Serum glucose measurement (m ass/volume)Ordered By: Sheyla Mcgee on 10-12-2024 Glucose [Mass/Vol] 91 mg/dL 70-99 [facility] Serum or plasma calcium rajni urement (mass/volume)Ordered By: Sheyla Donnellyabdirahman on 10-12-2024 Calcium [Mass/Vol] 8.0 mg/dL 7.6-11.0 [facility] Serum or plasma urea nitroge n measurement (mass/volume)Ordered By: Franciscodorian Gejuan mabdirahman on 10-12-2024 Urea nitrogen [Mass/Vol] 23 mg/dL High 4-19 [facility] Sodium levelOrdered By: Jonathan henry Joojuan mabdirahman on 10-12-2024 Sodium [Moles/Vol] 142 mmol/L 133-145 [facility] White blood cell (WBC) count Ordered By: Franciscoaaronestivenkateryna Gejuan mabdirahman on 10-12-2024 WBC (Bld) [#/Vol] 11.0 10*3/uL 4.4-11.0 [facility] Absolute lymphocyte countOrd ered By: Franciscoaaroncarl Joojuan mabdirahman on 10-05-2024 Lymphocytes Auto (Unsp spec) [#/Vol] 2.23 10*3/uL 0.83-4.51 [facility] Absolute neutrophil countOrd ered By: Sheyla Joopoli on 10-05-2024 Neutrophils (Bld) [#/Vol] 5.3 10*3/uL 2.0-7.7 [facility] Anion gap in Serum or Plasma Ordered By: Jonathancarl Joojuan mabdirahman on 10-05-2024 Anion gap [Moles/Vol] 14 mmol/L 5-15 [facility] Automated lymphocyte count a s percentage of total leukocytesOrdered By: Jonathanestivenkateryna Gejuan mabdirahman on 10-05-2024 Lymphocytes/100 WBC Auto (Unsp spec) 24.3 % 19-41 [facility] BUN/creatinine ratioOrdered By: Sheyla Joojuan mabdirahman on 10-05-2024 Urea nitrogen/Creatinine [Mass ratio] 23.9 mg/mg High 10-20 [facility] Basophil percentageOrdered B y: Bashirkateryna Gejuan mabdirahman on 10-05-2024 Basophils/100 WBC (Bld) 1.2 % High 0-1 [facility] Carbon dioxide, total [Moles /volume] in Central venous bloodOrdered By: Sheyla Mcgee on 10-05-2024 CO2 [Moles/Vol] 25.1 mmol/L 21.0-32.0 [facility] Chloride assayOrdered By: Francisco Mcgee on 10-05-2024 Chloride [Moles/Vol] 103 mmol/L 98-108 [facility] Eosinophil percentageOrdered By: Sheyla Mcgee on 10-05-2024 Eosinophils/100 WBC (Bld) 8.3 % High 0-5 [facility] Erythrocyte distribution wid th ratioOrdered By: a[place] Mcgee on 10-05-2024 Erythrocyte distribution width (RBC) [Ratio] 13.2 % 11.6-14.6 [facility] Erythrocyte distribution wid th standard deviationOrdered By: aaronpleasant[place]kateryna Mcgee on 10-05-2024 Erythrocyte distribution width (RBC) [Ratio] 47.4 fl High 35.1-43.9 [facility] Glomerular filtration rate ( GFR) estimation/1.73 sq m using serum, plasma, or whole bOrdered By: Shyela Mcgee on 10-05-2024 GFR/1.73 sq M.predicted among non-blacks MDRD (S/P/Bld) [Vol rate/Area] 91 mL/min/{1.73_m2} >60 [facility] Comment on above: mL/min/1.73m2 CKD-EP I Creatinine Equation (2020) Hematocrit Auto (Bld) [Volum e fraction]Ordered By: dorian Mcgee on 10-05-2024 Hematocrit (Bld) [Volume fraction] 37.8 % 37-47 [facility] Hemoglobin measurementOrdere d By: dorian Mcgee on 10-05-2024 Hemoglobin (Bld) [Mass/Vol] 12.4 g/dL 12.0-15.0 [facility] Immature granulocytes/100 WB C Auto (Bld)Ordered By: Sheyla Mcgee on 10-05-2024 Immature granulocytes/100 WBC (Bld) 0.300 % 0.0-0.9 [facility] Comment on above: IG% - Immature Granu locytes (promyelocytes, myelocytes and metamyelocytes) > 1% indicates that a LEFT SHIFT is Present. MCV (mean corpuscular volume ) determinationOrdered By: Sheyla Mcgee on 10-05-2024 MCV (RBC) [Entitic vol] 97.7 fL 81-99 [facility] Mean corpuscular hemoglobin (MCH) determinationOrdered By: Sheyla Gejuan mabdirahman on 10-05-2024 MCH (RBC) [Entitic mass] 32.0 pg 27.0-32.0 [facility] Mean corpuscular hemoglobin concentration (MCHC) determinationOrdered By: Sheyla Mcgee on 10-05-2024 MCHC (RBC) [Mass/Vol] 32.8 g/dL 32-36 [facility] Mean platelet volume determi nationOrdered By: Sheyla Mcgee on 10-05-2024 Platelet mean volume (Bld) [Entitic vol] 12.8 fL High 6.2-12.0 [facility] Monocyte percentageOrdered B y: Sheyla Mcgee on 10-05-2024 Monocytes/100 WBC (Bld) 7.8 % 0-10 [facility] Neutrophil percentageOrdered By: [facility] on 10-05-2024 Neutrophils/100 WBC (Bld) 58.1 % 47-70 [facility] Nucleated red blood cell per centageOrdered By: Jonathanpleasant[place]kateryna Mcgee on 10-05-2024 Nucleated RBC/100 WBC (Bld) [Ratio] 0 % 0-5 [facility] Platelet countOrdered By: Francisco aaroncarl Mcgee on 10-05-2024 Platelets (Bld) [#/Vol] 277 10*3/uL 150-450 [facility] Potassium measurement (mass/ volume)Ordered By: Sheyla Mcgee on 10-05-2024 Potassium (Unsp spec) [Mass/Vol] 3.5 mmol/L 3.3-5.1 [facility] RBC Auto (Bld) [#/Vol]Ordere d By: Sheyla Mcgee on 10-05-2024 RBC (Bld) [#/Vol] 3.87 10*6/uL Low 4.2-5.4 [facility] Serum creatinine measurement (mass/volume)Ordered By: Sheyla Mcgee on 10-05-2024 Creatinine [Mass/Vol] 0.63 mg/dL Low 0.70-1.20 [facility] Serum glucose measurement (m ass/volume)Ordered By: Sheyla Mcgee on 10-05-2024 Glucose [Mass/Vol] 90 mg/dL 70-99 [facility] Serum or plasma calcium rajni urement (mass/volume)Ordered By: Sheyla Mcgee on 10-05-2024 Calcium [Mass/Vol] 8.4 mg/dL 7.6-11.0 [facility] Serum or plasma urea nitroge n measurement (mass/volume)Ordered By: Sheyla Mcgee on 10-05-2024 Urea nitrogen [Mass/Vol] 15 mg/dL 4-19 [facility] Sodium levelOrdered By: Jonathan goyalaminataabdirahman Mcgee on 10-05-2024 Sodium [Moles/Vol] 143 mmol/L 133-145 [facility] White blood cell (WBC) count Ordered By: Sheyla Mcgee on 10-05-2024 WBC (Bld) [#/Vol] 9.2 10*3/uL 4.4-11.0 [facility] Absolute lymphocyte countOrd ered By: Sheyla Mcgee on 09-28-2024 Lymphocytes Auto (Unsp spec) [#/Vol] 2.11 10*3/uL 0.83-4.51 [facility] Absolute neutrophil countOrd ered By: Sheyla Mcgee on 09-28-2024 Neutrophils (Bld) [#/Vol] 7.3 10*3/uL 2.0-7.7 [facility] Anion gap in Serum or Plasma Ordered By: Sheyla Mcgee on 09-28-2024 Anion gap [Moles/Vol] 13 mmol/L 5-15 [facility] Automated lymphocyte count a s percentage of total leukocytesOrdered By: Sheyla Mcgee on 09-28-2024 Lymphocytes/100 WBC Auto (Unsp spec) 19.1 % 19-41 [facility] BUN/creatinine ratioOrdered By: Sheyla Mcgee on 09-28-2024 Urea nitrogen/Creatinine [Mass ratio] 16.3 mg/mg 10-20 [facility] Basophil percentageOrdered B y: Sheyla Joopoli on 09-28-2024 Basophils/100 WBC (Bld) 0.7 % 0-1 [facility] Bilirubin, totalOrdered By: dorian Gejuan mabdirahman on 09-28-2024 Bilirubin [Mass/Vol] 0.44 mg/dL 0.00-1.30 [facility] Carbon dioxide, total [Moles /volume] in Central venous bloodOrdered By: aaronpleasantvillekateryna Mcgee on 09-28-2024 CO2 [Moles/Vol] 25.5 mmol/L 21.0-32.0 [facility] Chloride assayOrdered By: Francisco yogikateryna Mcgee on 09-28-2024 Chloride [Moles/Vol] 104 mmol/L 98-108 [facility] Eosinophil percentageOrdered By: aaronpleasantvillekateryna Gejuan mabdirahman on 09-28-2024 Eosinophils/100 WBC (Bld) 5.4 % High 0-5 [facility] Erythrocyte distribution wid th ratioOrdered By: [facility] Arely on 09-28-2024 Erythrocyte distribution width (RBC) [Ratio] 13.2 % 11.6-14.6 [facility] Erythrocyte distribution wid th standard deviationOrdered By: aaronpleasantvillekateryna Gejuan mabdirahman on 09-28-2024 Erythrocyte distribution width (RBC) [Ratio] 47.7 fl High 35.1-43.9 [facility] Glomerular filtration rate ( GFR) estimation/1.73 sq m using serum, plasma, or whole bOrdered By: Sheyla Mcgee on 09-28-2024 GFR/1.73 sq M.predicted among non-blacks MDRD (S/P/Bld) [Vol rate/Area] 91 mL/min/{1.73_m2} >60 [facility] Comment on above: mL/min/1.73m2 CKD-EP I Creatinine Equation (2020) Hematocrit Auto (Bld) [Volum e fraction]Ordered By: Jonathanpleasantvillekateryna Mcgee on 09-28-2024 Hematocrit (Bld) [Volume fraction] 39.9 % 37-47 [facility] Hemoglobin measurementOrdere d By: Sheyla Mcgee on 09-28-2024 Hemoglobin (Bld) [Mass/Vol] 13.3 g/dL 12.0-15.0 [facility] Immature granulocytes/100 WB C Auto (Bld)Ordered By: Sheyla Mcgee on 09-28-2024 Immature granulocytes/100 WBC (Bld) 0.400 % 0.0-0.9 [facility] Comment on above: IG% - Immature Granu locytes (promyelocytes, myelocytes and metamyelocytes) > 1% indicates that a LEFT SHIFT is Present. Laboratory - Chemistry and C hemistry - challengeOrdered By: Sheyla Mcgee on 09-28-2024 AST [Catalytic activity/Vol] 28 U/L <32 [facility] MCV (mean corpuscular volume ) determinationOrdered By: Sheyla Mcgee on 09-28-2024 MCV (RBC) [Entitic vol] 97.3 fL 81-99 [facility] Magnesium measurement (mass/ volume)Ordered By: Sheyla Mcgee on 09-28-2024 Magnesium (Unsp spec) [Mass/Vol] 2.2 mg/dL 1.5-2.2 [facility] Mean corpuscular hemoglobin (MCH) determinationOrdered By: Sheyla Mcgee on 09-28-2024 MCH (RBC) [Entitic mass] 32.4 pg High 27.0-32.0 [facility] Mean corpuscular hemoglobin concentration (MCHC) determinationOrdered By: Sheyla Mcgee on 09-28-2024 MCHC (RBC) [Mass/Vol] 33.3 g/dL 32-36 [facility] Mean platelet volume determi nationOrdered By: Sheyla Mcgee on 09-28-2024 Platelet mean volume (Bld) [Entitic vol] 12.1 fL High 6.2-12.0 [facility] Monocyte percentageOrdered B y: Sheyla Mcgee on 09-28-2024 Monocytes/100 WBC (Bld) 8.3 % 0-10 [facility] Neutrophil percentageOrdered By: Sheyla Mcgee on 09-28-2024 Neutrophils/100 WBC (Bld) 66.1 % 47-70 [facility] Nucleated red blood cell per centageOrdered By: Sheyla Mcgee on 09-28-2024 Nucleated RBC/100 WBC (Bld) [Ratio] 0 % 0-5 [facility] Platelet countOrdered By: Francisco Mcgee on 09-28-2024 Platelets (Bld) [#/Vol] 230 10*3/uL 150-450 [facility] Potassium measurement (mass/ volume)Ordered By: Sheyla Mcgee on 09-28-2024 Potassium (Unsp spec) [Mass/Vol] 3.4 mmol/L 3.3-5.1 [facility] RBC Auto (Bld) [#/Vol]Ordere d By: Sheyla Mcgee on 09-28-2024 RBC (Bld) [#/Vol] 4.10 10*6/uL Low 4.2-5.4 [facility] Serum creatinine measurement (mass/volume)Ordered By: Sheyla Mcgee on 09-28-2024 Creatinine [Mass/Vol] 0.63 mg/dL Low 0.70-1.20 [facility] Serum globulin measurementOr dered By: Sheyla Mcgee on 09-28-2024 Globulin (S) [Mass/Vol] 2.9 g/dL 2.2-4.2 [facility] Serum glucose measurement (m ass/volume)Ordered By: Sheyla Mcgee on 09-28-2024 Glucose [Mass/Vol] 85 mg/dL 70-99 [facility] Serum or plasma alanine kaur otransferase (ALT) measurementOrdered By: Sheyla Mcgee on 09-28-2024 ALT [Catalytic activity/Vol] 23 U/L <35 [facility] Serum or plasma albumin rajni urement (mass/volume)Ordered By: Sheyla Mcgee on 09-28-2024 Albumin [Mass/Vol] 3.8 g/dL 3.4-4.8 [facility] Serum or plasma albumin/glob ulin mass ratioOrdered By: Sheyla Mcgee on 09-28-2024 Albumin/Globulin [Mass ratio] 1.3 {ratio} 0.9-2.4 [facility] Serum or plasma alkaline dedra sphatase measurementOrdered By: Franciscoaaronestivenkateryna Gejuan mabdirahman on 09-28-2024 ALP [Catalytic activity/Vol] 86 U/L 35-104 [facility] Serum or plasma calcium rajni urement (mass/volume)Ordered By: Sheyla Joojuan mabdirahman on 09-28-2024 Calcium [Mass/Vol] 8.7 mg/dL 7.6-11.0 [facility] Serum or plasma triiodothyro nine (T3) measurement (mass/volume)Ordered By: [facility] Joojuan mabdirahman on 09-28-2024 T3 [Mass/Vol] 0.82 ng/mL 0.80-2.00 [facility] Serum or plasma urea nitroge n measurement (mass/volume)Ordered By: Franciscoaaronestivenkateryna Gejuan mabdirahman on 09-28-2024 Urea nitrogen [Mass/Vol] 10 mg/dL 4-19 [facility] Sodium levelOrdered By: Jonathan henry Joojuan mabdirahman on 09-28-2024 Sodium [Moles/Vol] 143 mmol/L 133-145 [facility] TSH DL <= 0.005 mIU/L QnOrde red By: Sheyla Joopoli on 09-28-2024 TSH Qn 0.522 uIU/mL 0.300-4.200 [facility] Total proteinOrdered By: Jose isbell Joojuan mabdirahman on 09-28-2024 Protein [Mass/Vol] 6.8 g/dL 5.9-8.4 [facility] White blood cell (WBC) count Ordered By: Franciscoaaronestivenkateryna Gejuan mabdirahman on 09-28-2024 WBC (Bld) [#/Vol] 11.0 10*3/uL 4.4-11.0 [facility] Clavicleon 09-26-2024 Clavicle [facility] [address] [place] [address] Clavicle MR#: [id number] Acct: [id number] Name: AIDEN FIELDS Rep #: [id number] : 1945 F 78 From: Sim Gordon DO PCP: Dr. Sheyla Mcgee MD Status: REG ER Study: Clavicle Date of Exam: 09/26/24 Exam# [id number] Ordering Dr: Franky Olivas DO PROCEDURE: CLAVICLE 09/26/2024 REASON FOR EXAM: FALL Initial encounter TECHNIQUE: 2 view(s) of the left clavicle COMPARISON: No prior left clavicle radiographs. FINDINGS: LEFT CLAVICLE: Fracture in the distal 3rd of the clavicle with the parent 8 mm inferior displacement of the distal fracture fragment, been a apposition RAD/Clavicle IMPRESSION: Distal left clavicle fracture Reading [facility] CC: Dr. Sheyla Mcgee MD; Dr. Franky Olivas DO Bender Machine: Signed Normal [facility] Emergency Department Summary on 09-26-2024 Emergency Department Summary [facility] Medical Records Department [address] [place] [id number] Emergency Department Summary 09/26/24 MR#: [id number] Acct: [id number] Name: AIDEN FIELDS Rep #: [id number] : 1945 78 From: Franky Olivas DO PCP: Dr. Sheyla Mcgee MD Status:REG ER Location: ED HPI History of Present Illness Chief Complaint: Fall Narrative Narrative: Patient is a 78-year-old female past medical anxiety, depression, hypoparathyroidism, tobacco use, alcohol abuse, arthritis who presented to the emergency department chief complaint of concern for a right clavicle fracture after a fall last night. According to family at bedside she attempted to get up on her own and she fell. Patient states that she did not hit her head she did not pass out she members entire event. Patient according to family bedside states that she just arrived to the rehab facility as she was just admitted to the hospital here for recurrent UTIs and generalized weakness they deny any blood thinning medications. [facility] Medical History Anxiety and depression Hypoparathyroidism after procedure Back problem Frequent falls Benzodiazepine dependence Opioid dependence Melanoma Tobacco abuse Hypothyroidism GERD (gastroesophageal reflux disease) Anemia Alcohol abuse Hypertension Multiple rib fractures Subdural hematoma Vitamin D deficiency Skin cancer Rheumatoid arthritis High cholesterol Calcium deficiency Glaucoma Breast cancer Arthritis Home Medications ???Medication ???Instructions ???Recorded ???Last Taken ???Type dexamethasone sodium phosphate 0.1 1 drp ophthalmic (eye) DAILY 11/22/22 History % eye drops glaucoma amlodipine 5 mg tablet 5 mg PO [...] mg PO BID 11/22/22 11/22/22 Hi story albuterol sulfate 90 mcg/actuation 2 puff inhalation Q6H PRN Unknown Rx aerosol inhaler (Proventil HFA) shortness of breath or wheezing #8.5 grams acetaminophen 500 mg capsule 500 mg PO BID 05/19/23 Unknown His tory famotidine 20 mg tablet (Pepcid) 20 mg PO QHS 05/19/23 Unknown Hist ory polyethylene glycol 3350 17 17 g PO DAILY 05/19/23 Unknown His tory gram/dose oral powder (ClearLax) pyridoxine (vitamin B6) 100 mg 100 mg PO DAILY 05/19/23 Unknown H istory tablet liothyronine 5 mcg tablet 5 mcg PO DAILY 07/04/24 Unknown Hi story quetiapine 25 mg tablet 25 mg PO QHS 07/04/24 Unknown Hist ory clonazepam 1 mg tablet 1 mg PO BID 30 days #60 tabs 09/25 Unknown Rx meropenem 1 gram intravenous 1 g IV Q8 #20 ea 09/25/24 Unknown Rx solution pregabalin 75 mg capsule 75 mg PO TID PAIN 30 days #90 caps 09/25/24 Unknown Rx Allergy/AdvReac Type Severity Reaction Status Date / Time bacitracin (From Neosporin Allergy Unknown Unknown Verified 09/22/24 20:06 ([id number])) neomycin (From Neosporin Allergy Unknown Unknown Verified 09/22/24 20:06 ([id number])) polymyxin B (From Neosporin Allergy Unknown Unknown Verified 09/22/24 20:06 ([id number])) Antihistamines - Alkylamine Allergy PT UNSURE Verified [...] not use ROS ROS ED ROS Narrative Constitutional: Denies any fevers, chills, headaches Eyes: No change in vision double vision blurry vision Cardiovascular: Denies chest pain or palpitations Respiratory: D (more content not included)... [facility] Shoulder min 2 Viewson 09-26 Shoulder min 2 Views [facility] [address] [place], [place] [id number] Shoulder min 2 Views MR#: [id number] Acct: [id number] Name: AIDEN FIELDS Rep #: [id number] : 1945 F 78 From: Sim Gordon DO PCP: Dr. Sheyla Mcgee MD Status: REG ER Study: Shoulder min 2 Views Date of Exam: 09/26/24 Exam# [id number] Ordering Dr: Franky Olivas DO PROCEDURE: SHOULDER MIN 2 VIEWS 09/26/2024 REASON FOR EXAM: FALL Initial encounter TECHNIQUE: 4 view of the left shoulder FINDINGS: Healed proximal humerus fracture. Fracture in the distal 3rd of the clavicle. Previous open reduction internal fixation of rib fractures with plates and screws. No shoulder dislocation. Glenohumeral joint and bones intact Other: RAD/Shoulder min 2 Views IMPRESSION: Fracture in the distal 3rd of the clavicle. Reading [facility] CC: Dr. Sheyla Mcgee MD; Dr. Franky Olivas DO Bender Machine: Signed [facility] Urine Cultureon 09-26-2024 [facility] Urine Culture Citrobacter species [place] Count >100,000 Citrobacter species: REACTION Cefepime Islt [...] S Tobramycin Islt BENJAMIN <=1 S [facility] Comment on above: Performed By: #### L 500.4050, L100.0100, L501.3620 #### [facility] [address] [place], [place], [id number] Absolute lymphocyte countOrd ered By: Aggie Bolton on 09-23-2024 Lymphocytes Auto (Unsp spec) [#/Vol] 1.66 10*3/uL 0.83-4.51 [facility] Absolute neutrophil countOrd ered By: Aggie Bolton on 09-23-2024 Neutrophils (Bld) [#/Vol] 7.2 10*3/uL 2.0-7.7 [facility] Anion gap in Serum or Plasma Ordered By: Aggie Bolton on 09-23-2024 Anion gap [Moles/Vol] 10 mmol/L 5-15 [facility] Automated blood erythrocyte countOrdered By: Aggie Bolton on 09-23-2024 RBC (Bld) [#/Vol] 3.68 10*6/uL Low 4.2-5.4 [facility] Comment on above: Performed By: #### L 500.4050, L100.0100, L501.3620 #### [facility] [address] [place], [address] Automated blood hematocrit ( percentage)Ordered By: Aggie Che on 09-23-2024 Hematocrit (Bld) [Volume fraction] 35.9 % Low 37-47 [facility] Comment on above: Performed By: #### L 500.4050, L100.0100, L501.3620 #### [facility] [address] [place], [address] Automated lymphocyte count a s percentage of total leukocytesOrdered By: Aggie Bolton on 09-23-2024 Lymphocytes/100 WBC Auto (Unsp spec) 16.2 % Low 19-41 [facility] BUN/creatinine ratioOrdered By: [facility] Che on 09-23-2024 Urea nitrogen/Creatinine [Mass ratio] 18.3 mg/mg 10-20 [facility] Basophil percentageOrdered B y: Aggie Bolton on 09-23-2024 Basophils/100 WBC (Bld) 0.8 % Normal 0-1 [facility] Comment on above: Performed By: #### L 500.4050, L100.0100, L501.3620 #### [facility] [address] [place], [address] Bilirubin, totalOrdered By: Aggie Bolton on 09-23-2024 Bilirubin [Mass/Vol] 0.17 mg/dL Normal 0.00-1.30 [facility] Comment on above: Performed By: #### L 500.4050, L100.0100, L501.3620 #### [facility] [address] [place], [address] CBC W/Diff, Automatedon 06-0 Absolute Lymph 1.66 X10 3/uL Normal 0.83-4.51 [facility] Comment on above: Performed By: #### L 500.4050, L100.0100, L501.3620 #### [facility] [address] [place], [address] Absolute Neut 7.2 X10 3/uL Normal 2.0-7.7 [facility] Comment on above: Performed By: #### L 500.4050, L100.0100, L501.3620 #### [facility] [address] [place], [address] IG% 0.400 Normal 0.0-0.9 [facility] Comment on above: Result Comment: IG% - Immature Granulocytes (promyelocytes, myelocytes and metamyelocytes) > 1% indicates that a LEFT SHIFT is Present. Performed By: #### L 500.4050, L100.0100, L501.3620 #### [facility] [address] [place], [address] Lymphocytes/100 WBC (Bld) 16.2 % Low 19-41 [facility] Comment on above: Performed By: #### L 500.4050, L100.0100, L501.3620 #### [facility] [address] [place], [address] Nucleated RBC (Bld) [#/Vol] 0 10*3/uL Normal 0-5 [facility] Comment on above: Performed By: #### L 500.4050, L100.0100, L501.3620 #### [facility] [address] [place], [address] RDW SD 47.4 fl High 35.1-43.9 [facility] Comment on above: Performed By: #### L 500.4050, L100.0100, L501.3620 #### [facility] [address] [place], [address] CPK Total, Creatine Kinaseon 09-23-2024 CPK TOTAL 271 U/L High 24-195 [facility] Comment on above: Performed By: #### L 500.4050, L100.0100, L501.3620 #### [facility] [address] [place], [address] Carbon dioxide, total [Moles /volume] in Central venous bloodOrdered By: Aggie Bolton on 09-23-2024 CO2 [Moles/Vol] 24.4 mmol/L Normal 21.0-32.0 [facility] Comment on above: Performed By: #### L 500.4050, L100.0100, L501.3620 #### [facility] [address] [place], [address] Chloride assayOrdered By: Lesly Bolton on 09-23-2024 Chloride [Moles/Vol] 105 mmol/L Normal 98-108 [facility] Comment on above: Performed By: #### L 500.4050, L100.0100, L501.3620 #### [facility] [address] [place], [address] Comprehensive Metabolic Prof ilon 09-23-2024 ALK PHOS 80 U/L Normal 35-104 [facility] Comment on above: Performed By: #### L 500.4050, L100.0100, L501.3620 #### [facility] [address] [place], [address] BUN/CRE 18.3 RATIO Normal 10-20 [facility] Comment on above: Performed By: #### L 500.4050, L100.0100, L501.3620 #### [facility] [address] [place], [address] ECRCL 59.41 ml/min Normal 50-250 [facility] Comment on above: Performed By: #### L 500.4050, L100.0100, L501.3620 #### [facility] [address] [place], [address] GAP 10 Normal 5-15 [facility] Comment on above: Performed By: #### L 500.4050, L100.0100, L501.3620 #### [facility] [address] [place], [address] Potassium [Moles/Vol] 4.1 mmol/L Normal 3.3-5.1 [facility] Comment on above: Performed By: #### L 500.4050, L100.0100, L501.3620 #### [facility] [address] [place], [address] T PROT 6.2 g/dL Normal 5.9-8.4 [facility] Comment on above: Performed By: #### L 500.4050, L100.0100, L501.3620 #### [facility] [address] [place], [address] Comprehensive Metabolic Prof ilOrdered By: Aggie Bolton on 09-23-2024 AST [Catalytic activity/Vol] 24 U/L Normal <=31 [facility] Comment on above: Performed By: #### L 500.4050, L100.0100, L501.3620 #### [facility] [address] [place], [address] Eosinophil percentageOrdered By: Aggie Bolton on 09-23-2024 Eosinophils/100 WBC (Bld) 2.4 % Normal 0-5 [facility] Comment on above: Performed By: #### L 500.4050, L100.0100, L501.3620 #### [facility] [address] [place], [address] Erythrocyte distribution wid th ratioOrdered By: Aggie Bolton on 09-23-2024 Erythrocyte distribution width (RBC) [Ratio] 13.2 % Normal 11.6-14.6 [facility] Comment on above: Performed By: #### L 500.4050, L100.0100, L501.3620 #### [facility] [address] [place], [place], [id number] Erythrocyte distribution wid th standard deviationOrdered By: Aggie Bolton on 09-23-2024 Erythrocyte distribution width (RBC) [Ratio] 47.4 fl High 35.1-43.9 [facility] Glomerular filtration rate ( GFR) estimation/1.73 sq m using serum, plasma, or whole bOrdered By: Aggie Bolton on 09-23-2024 GFR/1.73 sq M.predicted among non-blacks MDRD (S/P/Bld) [Vol rate/Area] 87 mL/min/{1.73_m2} Normal >60 [facility] Comment on above: mL/min/1.73m2 CKD-EP I Creatinine Equation (2020) Result Comment: mL/m in/1.73m2 CKD-EPI Creatinine Equation (2020) Performed By: #### L 500.4050, L100.0100, L501.3620 #### [facility] [address] [facility] [place], [place], [id number] Hemoglobin measurementOrdere d By: Agige Bolton on 09-23-2024 Hemoglobin (Bld) [Mass/Vol] 12.0 g/dL Normal 12.0-15.0 [facility] Comment on above: Performed By: #### L 500.4050, L100.0100, L501.3620 #### [facility] [address] [place], [address] Immature granulocytes/100 WB C Auto (Bld)Ordered By: Aggie Bolton on 09-23-2024 Immature granulocytes/100 WBC (Bld) 0.400 % 0.0-0.9 [facility] Comment on above: IG% - Immature Granu locytes (promyelocytes, myelocytes and metamyelocytes) > 1% indicates that a LEFT SHIFT is Present. MCV (mean corpuscular volume ) determinationOrdered By: Aggie Bolton on 09-23-2024 MCV (RBC) [Entitic vol] 97.6 fL Normal 81-99 [facility] Comment on above: Performed By: #### L 500.4050, L100.0100, L501.3620 #### [facility] [address] [place], [address] Mean corpuscular hemoglobin (MCH) determinationOrdered By: Aggie Bolton on 09-23-2024 MCH (RBC) [Entitic mass] 32.6 pg High 27.0-32.0 [facility] Comment on above: Performed By: #### L 500.4050, L100.0100, L501.3620 #### [facility] [address] [place], [address] Mean corpuscular hemoglobin concentration (MCHC) determinationOrdered By: Aggie Bolton on 09-23-2024 MCHC (RBC) [Mass/Vol] 33.4 g/dL Normal 32-36 [facility] Comment on above: Performed By: #### L 500.4050, L100.0100, L501.3620 #### [facility] [address] [place], [address] Mean platelet volume determi nationOrdered By: Aggie Bolton on 09-23-2024 Platelet mean volume (Bld) [Entitic vol] 11.7 fL Normal 6.2-12.0 [facility] Comment on above: Performed By: #### L 500.4050, L100.0100, L501.3620 #### [facility] [address] [place], [address] Monocyte percentageOrdered B y: Aggie Che on 09-23-2024 Monocytes/100 WBC (Bld) 9.6 % Normal 0-10 [facility] Comment on above: Performed By: #### L 500.4050, L100.0100, L501.3620 #### [facility] [address] [place], [address] Neutrophil percentageOrdered By: Aggie Bolton on 09-23-2024 Neutrophils/100 WBC (Bld) 70.6 % High 47-70 [facility] Comment on above: Performed By: #### L 500.4050, L100.0100, L501.3620 #### [facility] [address] [place], [address] Nucleated red blood cell per centageOrdered By: Aggie Bolton on 09-23-2024 Nucleated RBC/100 WBC (Bld) [Ratio] 0 % 0-5 [facility] Platelet countOrdered By: Lesly martingabriela Bolton on 09-23-2024 Platelets (Bld) [#/Vol] 241 10*3/uL Normal 150-450 [facility] Comment on above: Performed By: #### L 500.4050, L100.0100, L501.3620 #### [facility] [address] [place], [address] Potassium measurement (mass/ volume)Ordered By: Aggie Bolton on 09-23-2024 Potassium (Unsp spec) [Mass/Vol] 4.1 mmol/L 3.3-5.1 [facility] Serum creatinine measurement (mass/volume)Ordered By: Aggie Bolton on 09-23-2024 Creatinine [Mass/Vol] 0.71 mg/dL Normal 0.70-1.20 [facility] Comment on above: Performed By: #### L 500.4050, L100.0100, L501.3620 #### [facility] [address] [place], [address] Serum globulin measurementOr dered By: Aggie Bolton on 09-23-2024 Globulin (S) [Mass/Vol] 2.8 g/dL Normal 2.2-4.2 [facility] Comment on above: Performed By: #### L 500.4050, L100.0100, L501.3620 #### [facility] [address] [place], [address] Serum glucose measurement (m ass/volume)Ordered By: Aggie Bolton on 09-23-2024 Glucose [Mass/Vol] 162 mg/dL High 70-99 [facility] Comment on above: Performed By: #### L 500.4050, L100.0100, L501.3620 #### [facility] [address] [place], [address] Serum or plasma alanine kaur otransferase (ALT) measurementOrdered By: Aggie Bolton on 09-23-2024 ALT [Catalytic activity/Vol] 13 U/L Normal <=34 [facility] Comment on above: Performed By: #### L 500.4050, L100.0100, L501.3620 #### [facility] [address] [place], [address] Serum or plasma albumin rajni urement (mass/volume)Ordered By: Aggie Bolton on 09-23-2024 Albumin [Mass/Vol] 3.4 g/dL Normal 3.4-4.8 [facility] Comment on above: Performed By: #### L 500.4050, L100.0100, L501.3620 #### [facility] [address] [place], [address] Serum or plasma albumin/glob ulin mass ratioOrdered By: Aggie Bolton on 09-23-2024 Albumin/Globulin [Mass ratio] 1.2 {ratio} Normal 0.9-2.4 [facility] Comment on above: Performed By: #### L 500.4050, L100.0100, L501.3620 #### [facility] [address] [place], [address] Serum or plasma alkaline dedra sphatase measurementOrdered By: Aggie Bolton on 09-23-2024 ALP [Catalytic activity/Vol] 80 U/L 35-104 [facility] Serum or plasma calcium rajni urement (mass/volume)Ordered By: Aggie Bolton on 09-23-2024 Calcium [Mass/Vol] 8.0 mg/dL Normal 7.6-11.0 [facility] Comment on above: Performed By: #### L 500.4050, L100.0100, L501.3620 #### [facility] [address] [place], [address] Serum or plasma creatine kin ase activityOrdered By: Aggie Bolton on 09-23-2024 CK [Catalytic activity/Vol] 271 U/L High 24-195 [facility] Serum or plasma urea nitroge n measurement (mass/volume)Ordered By: Aggie Bolton on 09-23-2024 Urea nitrogen [Mass/Vol] 13 mg/dL Normal 4-19 [facility] Comment on above: Performed By: #### L 500.4050, L100.0100, L501.3620 #### [facility] [address] [place], [address] Sodium levelOrdered By: Varun Bolton on 09-23-2024 Sodium [Moles/Vol] 140 mmol/L Normal 133-145 [facility] Comment on above: Performed By: #### L 500.4050, L100.0100, L501.3620 #### [facility] [address] [place], [address] Total proteinOrdered By: Martita Bolton on 09-23-2024 Protein [Mass/Vol] 6.2 g/dL 5.9-8.4 [facility] White blood cell (WBC) count Ordered By: Aggie Bolton on 09-23-2024 WBC (Bld) [#/Vol] 10.3 10*3/uL Normal 4.4-11.0 [facility] Comment on above: Performed By: #### L 500.4050, L100.0100, L501.3620 #### [facility] [address] [place], [address] 12 Lead EKGon 09-22-2024 12 Lead EKG [facility] [address] [place] [address] 12 Lead EKG 09/22/242044 MR#: [id number] Acct: [id number] Name: AIDEN FIELDS Rep #: [id number] : 1945 78 From: Geovanna Gray MD Attending Dr: Dr. Froy Velázquez DO Status: DIS IN Ordering Dr: Alexis Quijano MD Date: 09/22/24 Location: [facility] Sex: F C Admitted: 09/22/24 Test Reason : WEAKNESS Blood Pressure : */* mmHG Vent. Rate : 63 BPM Atrial Rate : 63 BPM P-R Int : 148 ms QRS Dur : 70 ms QT Int : 402 ms P-R-T Axes : 43 7 24 degrees QTcB Int : 411 ms Normal sinus rhythm Normal ECG Confirmed by ISAIAH CRAMER, HILL ([id number]), food expeditor ONESIMO GRACE ([id number]) on 09/28/2024 7:09:28 AM Referred By: Confirmed By: HILL GRAY MD 09/28/24 0709 Date Geovanna Gray MD CC: Dr. Alexis Quijano MD; Dr. Froy Velázquez DO; Dr. Erica Richardson DO Signed Normal [facility] Absolute lymphocyte countOrd ered By: Alexis Quijano on 09-22-2024 Lymphocytes Auto (Unsp spec) [#/Vol] 2.17 10*3/uL 0.83-4.51 [facility] Absolute neutrophil countOrd ered By: Alexis Quijano on 09-22-2024 Neutrophils (Bld) [#/Vol] 8.0 10*3/uL High 2.0-7.7 [facility] Anion gap in Serum or Plasma Ordered By: Alexis Quijano on 09-22-2024 Anion gap [Moles/Vol] 11 mmol/L 5-15 [facility] Automated lymphocyte count a s percentage of total leukocytesOrdered By: Alexis Quijano on 09-22-2024 Lymphocytes/100 WBC Auto (Unsp spec) 18.8 % Low 19-41 [facility] BUN/creatinine ratioOrdered By: Alexis Quijano on 09-22-2024 Urea nitrogen/Creatinine [Mass ratio] 15.0 mg/mg 10-20 [facility] Basophil percentageOrdered B y: Alexis Quijano on 09-22-2024 Basophils/100 WBC (Bld) 0.9 % 0-1 [facility] Bilirubin Test strip Ql (U)O rdered By: Alexis Quijano on 09-22-2024 Bilirubin Ql (U) Negative Negative [facility] Bilirubin, totalOrdered By: Alexis Quijano on 09-22-2024 Bilirubin [Mass/Vol] 0.31 mg/dL 0.00-1.30 [facility] Brain/Head without Contrasto n 09-22-2024 Brain/Head without Contrast [facility] Imaging Services [address] [place], [place] [address] Brain/Head without Contrast MR#: [id number] Acct: [id number] Name: AIDEN FIELDS Rep #: [id number] : 1945 F 78 From: Warren Mullen MD PCP: Dr. Erica Richardson, DO Status: REG ER Study: Brain/Head without Contrast Date of Exam: 07/14 Exam# [id number] Ordering Dr: Alexis Quijano MD PROCEDURE: BRAIN/HEAD [...] mGy DLP: 897.35 mGycm COMPARISON: 08/20/2023. FINDINGS: Xsklizwg-iv-rmouob global parenchymal atrophy. Periventricular white matter hypodensity likely representing chronic microvascular ischemia. No evidence of acute hemorrhage or infarction. No extra-axial blood or fluid collections. The paranasal sinuses are clear. The mastoid air cells are well aerated. The calvarial vault and skull base are intact. CT/Brain/Head without Contrast IMPRESSION: No acute intracranial abnormality. Reading Location: [id number] CC: Dr. Alexis Quijano MD; Dr. Erica Richardson DO Bender Machine: Signed Normal [facility] CBC W/Diff, Automatedon 06-0 Absolute Lymph 2.17 X10 3/uL Normal 0.83-4.51 [facility] Comment on above: Performed By: #### M 100.2200 #### [facility] [address] [place], [address] Absolute Neut 8.0 X10 3/uL High 2.0-7.7 [facility] Comment on above: Performed By: #### M 100.2200 #### [facility] [address] [place], [address] Basophils/100 WBC (Bld) 0.9 % Normal 0-1 [facility] Comment on above: Performed By: #### M 100.2200 #### [facility] [address] [place], [address] Eosinophils/100 WBC (Bld) 2.9 % Normal 0-5 [facility] Comment on above: Performed By: #### M 100.2200 #### [facility] [address] [place], [address] Erythrocyte distribution width (RBC) [Ratio] 13.1 % Normal 11.6-14.6 [facility] Comment on above: Performed By: #### M 100.2200 #### [facility] [address] [place], [address] Hematocrit (Bld) [Volume fraction] 39.5 % Normal 37-47 [facility] Comment on above: Performed By: #### M 100.2200 #### [facility] [address] [place], [address] Hemoglobin (Bld) [Mass/Vol] 13.2 g/dL Normal 12.0-15.0 [facility] Comment on above: Performed By: #### M 100.2200 #### [facility] [address] [place], [address] IG% 0.400 Normal 0.0-0.9 [facility] Comment on above: Result Comment: IG% - Immature Granulocytes (promyelocytes, myelocytes and metamyelocytes) > 1% indicates that a LEFT SHIFT is Present. Performed By: #### M 100.2200 #### [facility] [address] [place], [address] Lymphocytes/100 WBC (Bld) 18.8 % Low 19-41 [facility] Comment on above: Performed By: #### M 100.2200 #### [facility] [address] [place], [address] MCH (RBC) [Entitic mass] 32.7 pg High 27.0-32.0 [facility] Comment on above: Performed By: #### M 100.2200 #### [facility] [address] [place], [address] MCHC (RBC) [Mass/Vol] 33.4 g/dL Normal 32-36 [facility] Comment on above: Performed By: #### M 100.2200 #### [facility] [address] [place], [address] MCV (RBC) [Entitic vol] 97.8 fL Normal 81-99 [facility] Comment on above: Performed By: #### M 100.2200 #### [facility] [address] [place], [address] Monocytes/100 WBC (Bld) 7.5 % Normal 0-10 [facility] Comment on above: Performed By: #### M 100.2200 #### [facility] [address] [place], [address] Neutrophils/100 WBC (Bld) 69.5 % Normal 47-70 [facility] Comment on above: Performed By: #### M 100.2200 #### [facility] [address] [place], [address] Nucleated RBC (Bld) [#/Vol] 0 10*3/uL Normal 0-5 [facility] Comment on above: Performed By: #### M 100.2200 #### [facility] [address] [place], [address] Platelet mean volume (Bld) [Entitic vol] 12.0 fL Normal 6.2-12.0 [facility] Comment on above: Performed By: #### M 100.2200 #### [facility] [address] [place], [address] Platelets (Bld) [#/Vol] 259 10*3/uL Normal 150-450 [facility] Comment on above: Performed By: #### M 100.2200 #### [facility] [address] [place], [address] RBC (Bld) [#/Vol] 4.04 10*6/uL Low 4.2-5.4 [facility] Comment on above: Performed By: #### M 100.2200 #### [facility] [address] [place], [address] RDW SD 47.2 fl High 35.1-43.9 [facility] Comment on above: Performed By: #### M 100.2200 #### [facility] [address] [place], [address] WBC (Bld) [#/Vol] 11.6 10*3/uL High 4.4-11.0 [facility] Comment on above: Performed By: #### M 100.2200 #### [facility] [address] [place], [address] CPK Total, Creatine Kinaseon 09-22-2024 CPK TOTAL 316 U/L High 24-195 [facility] Comment on above: Performed By: #### L 501.3620 #### [facility] [address] [place], [place], [address] Carbon dioxide, total [Moles /volume] in Central venous bloodOrdered By: Alexis Quijano on 09-22-2024 CO2 [Moles/Vol] 25.5 mmol/L 21.0-32.0 [facility] Chest 1 View (Portable)on Chest 1 View (Portable) [facility] Imaging Services [address] [place], [place] [address] Chest 1 View (Portable) MR#: [id number] Acct: [id number] Name: AIDEN FIELDS Rep #: [id number] : 1945 F 78 From: Warren Mullen MD PCP: Dr. Erica Richardson DO Status: REG ER Study: Chest 1 View (Portable) Date of Exam: 09/22/24 Exam# [id number] Ordering Dr: Alexis Quijano MD PROCEDURE: CHEST 1 VIEW (PORTABLE) 09/22/2024 REASON FOR EXAM: SHORTNESS OF BREATH TECHNIQUE: Frontal view of the chest. COMPARISON: 07/04/2024. FINDINGS: The heart is normal in size. Right chest Port-A-Cath. The lungs are clear. Right humeral plate and screw fixation. Left rib plate and screw fixation. RAD/Chest 1 View (Portable) IMPRESSION: No acute cardiopulmonary abnormalities. Reading Location: [place] [address] CC: Dr. Alexis Quijano MD; Dr. Erica Richardson DO Bender Machine: Signed Normal [facility] Chloride assayOrdered By: Hermann Quijano on 09-22-2024 Chloride [Moles/Vol] 100 mmol/L 98-108 [facility] Comprehensive Metabolic Prof ilon 09-22-2024 Albumin [Mass/Vol] 3.6 g/dL Normal 3.4-4.8 [facility] Comment on above: Performed By: #### M 100.2200 #### [facility] [address] [place], [address] Albumin/Globulin [Mass ratio] 1.2 {ratio} Normal 0.9-2.4 [facility] Comment on above: Performed By: #### M 100.2200 #### [facility] [address] [place], [address] ALK PHOS 87 U/L Normal 35-104 [facility] Comment on above: Performed By: #### M 100.2200 #### [facility] [address] [place], [address] ALT [Catalytic activity/Vol] 16 U/L Normal <=34 [facility] Comment on above: Result Comment: Hemo lysis present, Results??could be affected. ?? Performed By: #### M 100.0 #### [facility] [address] [place], [address] AST [Catalytic activity/Vol] 40 U/L High <=31 [facility] Comment on above: Result Comment: Hemo lysis present, Results??could be affected. ?? Performed By: #### M 100.2200 #### [facility] [address] [place], [address] Bilirubin [Mass/Vol] 0.31 mg/dL Normal 0.00-1.30 [facility] Comment on above: Performed By: #### M 100.2200 #### [facility] [address] [place], [address] BUN/CRE 15.0 RATIO Normal 10-20 [facility] Comment on above: Performed By: #### M 100.2200 #### [facility] [address] [place], [address] Calcium [Mass/Vol] 8.6 mg/dL Normal 7.6-11.0 [facility] Comment on above: Performed By: #### M 100.2200 #### [facility] [address] [place], [address] Chloride [Moles/Vol] 100 mmol/L Normal 98-108 [facility] Comment on above: Performed By: #### M 100.2200 #### [facility] [address] [place], [address] CO2 [Moles/Vol] 25.5 mmol/L Normal 21.0-32.0 [facility] Comment on above: Performed By: #### M 100.2200 #### [facility] [address] [place], [address] Creatinine [Mass/Vol] 0.86 mg/dL Normal 0.70-1.20 [facility] Comment on above: Performed By: #### M 100.2200 #### [facility] [address] [place], [address] ECRCL 58.83 ml/min Normal 50-250 [facility] Comment on above: Performed By: #### M 100.2200 #### [facility] [address] [place], [address] GAP 11 Normal 5-15 [facility] Comment on above: Performed By: #### M 100.2200 #### [facility] [address] [place], [address] GFR/1.73 sq M.predicted among non-blacks MDRD (S/P/Bld) [Vol rate/Area] 70 mL/min/{1.73_m2} Normal >60 [facility] Comment on above: Result Comment: mL/m in/1.73m2 CKD-EPI Creatinine Equation (2020) Performed By: #### M 100.2200 #### [facility] [address] [place], [address] Globulin (S) [Mass/Vol] 3.0 g/dL Normal 2.2-4.2 [facility] Comment on above: Performed By: #### M 100.2200 #### [facility] [address] [place], [address] Glucose [Mass/Vol] 97 mg/dL Normal 70-99 [facility] Comment on above: Performed By: #### M 100.2200 #### [facility] [address] [place], [address] Potassium [Moles/Vol] 5.2 mmol/L High 3.3-5.1 [facility] Comment on above: Result Comment: Hemo lysis present, Results??could be affected. ?? Performed By: #### M 100.2200 #### [facility] [address] [place], [address] Sodium [Moles/Vol] 136 mmol/L Normal 133-145 [facility] Comment on above: Performed By: #### M 100.2200 #### [facility] [address] [place], [address] T PROT 6.6 g/dL Normal 5.9-8.4 [facility] Comment on above: Performed By: #### M 100.2200 #### [facility] [address] [place], [address] Urea nitrogen [Mass/Vol] 13 mg/dL Normal 4-19 [facility] Comment on above: Performed By: #### M 100.2200 #### [facility] [address] [place], [address] Emergency Department Summary on 09-22-2024 Emergency Department Summary [facility] Medical Records Department [address] [address] Emergency Department Summary 09/22/24 MR#: [id number] Acct: [id number] Name: AIDEN FIELDS Rep #: [id number] : 1945 78 From: Alexis Quijano MD [...] 12 hours which is unusual for her. [facility] Medical History Anxiety and depression Hypoparathyroidism [...] Neosporin Allergy Unknown Unknown Verified 09/22/24 20:06 ([id number])) neomycin (From Neosporin Allergy Unknown Unknown Verified 09/22/24 20:06 ([id number])) polymyxin B (From Neosporin Allergy Unknown Unknown Verified 09/22/24 20:06 ([id number])) Antihistamines - Alkylamine Allergy PT UNSURE Verified [...] Smoking Sta (more content not included)... Normal [facility] Eosinophil percentageOrdered By: Alexis Quijano on 09-22-2024 Eosinophils/100 WBC (Bld) 2.9 % 0-5 [facility] Erythrocyte distribution wid th ratioOrdered By: Alexis Quijano on 09-22-2024 Erythrocyte distribution width (RBC) [Ratio] 13.1 % 11.6-14.6 [facility] Erythrocyte distribution wid th standard deviationOrdered By: Alexis Quijano on 09-22-2024 Erythrocyte distribution width (RBC) [Ratio] 47.2 fl High 35.1-43.9 [facility] Glomerular filtration rate ( GFR) estimation/1.73 sq m using serum, plasma, or whole bOrdered By: Alexis Quijano on 09-22-2024 GFR/1.73 sq M.predicted among non-blacks MDRD (S/P/Bld) [Vol rate/Area] 70 mL/min/{1.73_m2} >60 [facility] Comment on above: mL/min/1.73m2 CKD-EP I Creatinine Equation (2020) H AND P Exam - [facility] 09-22-2024 H&P Exam - Hospitalist [facility] Medical Records Department [address] [place] [address] H P Exam - Hospitalist 09/22/24 9574 MR#: [id number] Acct: [id number] Name: AIDEN FIELDS Consuelo Rep #: [id number] : 1945 78 From: Aggie Bolton MD PCP: Dr. Erica Richardson, DO Status:ADM IN Location: [place] [id number] HPI - General General Date of Admission: [...] history Chronic anemia who presents to the [facility] ED on 09/22/2024 with history of [...] and Rocephin 1 g IV x 1. [facility] Medical History Anxiety and depression Hypoparathyroidism [...] Neosporin Allergy Unknown Unknown Verified 09/22/24 20:06 ([id number])) neomycin (From Neosporin Allergy Unknown Unknown Verified 09/22/24 20:06 (n (more content not included)... Normal [facility] Hematocrit Auto (Bld) [Volum e fraction]Ordered By: Alexis Quijano on 09-22-2024 Hematocrit (Bld) [Volume fraction] 39.5 % 37-47 [facility] Hemoglobin measurementOrdere d By: Alexis Quijano on 09-22-2024 Hemoglobin (Bld) [Mass/Vol] 13.2 g/dL 12.0-15.0 [facility] Immature granulocytes/100 WB C Auto (Bld)Ordered By: Alexis Quijano on 09-22-2024 Immature granulocytes/100 WBC (Bld) 0.400 % 0.0-0.9 [facility] Comment on above: IG% - Immature Granu locytes (promyelocytes, myelocytes and metamyelocytes) > 1% indicates that a LEFT SHIFT is Present. Influenza virus A and B and SARS-CoV-2 (COVID-19) and Respiratory syncytial virus RNAOrdered By: Alexis Quijano on 09-22-2024 SARS-CoV-2 (COVID-19) RNA LEONA+probe Ql (Unsp spec) [facility] Ketones Test strip Ql (U)Ord ered By: Alexis Quijano on 09-22-2024 Ketones Ql (U) Negative Negative [facility] - Chemistry and C hemistry - challengeOrdered By: Alexis Quijano on 09-22-2024 AST [Catalytic activity/Vol] 40 U/L High <32 [facility] Comment on above: Hemolysis present, R esults could be affected. M100.678on 09-22-2024 M100.678 Pending SARS-CoV-2 (COVID 19) Negative INFLUENZA A Negative INFLUENZA B Negative RSV PCR Negative Normal [facility] Comment on above: Performed By: #### M 100.7643 #### [facility] [place] [address], [address] MCV (mean corpuscular volume ) determinationOrdered By: Alexis Quijano on 09-22-2024 MCV (RBC) [Entitic vol] 97.8 fL 81-99 [facility] Mean corpuscular hemoglobin (MCH) determinationOrdered By: Alexis Quijano on 09-22-2024 MCH (RBC) [Entitic mass] 32.7 pg High 27.0-32.0 [facility] Mean corpuscular hemoglobin concentration (MCHC) determinationOrdered By: Alexis Quijano on 09-22-2024 MCHC (RBC) [Mass/Vol] 33.4 g/dL 32-36 [facility] Mean platelet volume determi nationOrdered By: Alexis Quijano on 09-22-2024 Platelet mean volume (Bld) [Entitic vol] 12.0 fL 6.2-12.0 [facility] Microscopic analysis of urin e for red blood cells (RBC)Ordered By: Alexis Quijano on 09-22-2024 Microscopic analysis of urine for red blood cells (RBC) 0-5 SEEN /hpf 0-5 [facility] Monocyte percentageOrdered B y: Alexis Quijano on 09-22-2024 Monocytes/100 WBC (Bld) 7.5 % 0-10 [facility] Mucus LM Ql (Urine sed)Order ed By: Alexis Quijano on 09-22-2024 Mucus Ql (Urine sed) 0 SEEN /hpf [facility] Neutrophil percentageOrdered By: Alexis Quijano on 09-22-2024 Neutrophils/100 WBC (Bld) 69.5 % 47-70 [facility] Nitrite Test strip Ql (U)Ord ered By: Alexis Quijano on 09-22-2024 Nitrite Ql (U) Positive High Negative [facility] Nucleated red blood cell per centageOrdered By: Alexis Quijano on 09-22-2024 Nucleated RBC/100 WBC (Bld) [Ratio] 0 % 0-5 [facility] Platelet countOrdered By: Hermann Quijano on 09-22-2024 Platelets (Bld) [#/Vol] 259 10*3/uL 150-450 [facility] Potassium measurement (mass/ volume)Ordered By: Alexis Quijano on 09-22-2024 Potassium (Unsp spec) [Mass/Vol] 5.2 mmol/L High 3.3-5.1 [facility] Comment on above: Hemolysis present, R esults could be affected. Protein Test strip Ql (U)Ord ered By: Alexis Quijano on 09-22-2024 Protein Ql (U) 15 mg/dl High Negative [facility] RBC Auto (Bld) [#/Vol]Ordere d By: Alexis Quijano on 09-22-2024 RBC (Bld) [#/Vol] 4.04 10*6/uL Low 4.2-5.4 [facility] Serum creatinine measurement (mass/volume)Ordered By: Alexis Quijano on 09-22-2024 Creatinine [Mass/Vol] 0.86 mg/dL 0.70-1.20 [facility] Serum globulin measurementOr dered By: Alexis Quijano on 09-22-2024 Globulin (S) [Mass/Vol] 3.0 g/dL 2.2-4.2 [facility] Serum glucose measurement (m ass/volume)Ordered By: Alexis Quijano on 09-22-2024 Glucose [Mass/Vol] 97 mg/dL 70-99 [facility] Serum or plasma alanine kaur otransferase (ALT) measurementOrdered By: Alexis Quijano on 09-22-2024 ALT [Catalytic activity/Vol] 16 U/L <35 [facility] Comment on above: Hemolysis present, R esults could be affected. Serum or plasma albumin rajni urement (mass/volume)Ordered By: Alexis Quijano on 09-22-2024 Albumin [Mass/Vol] 3.6 g/dL 3.4-4.8 [facility] Serum or plasma albumin/glob ulin mass ratioOrdered By: Alexis Quijano on 09-22-2024 Albumin/Globulin [Mass ratio] 1.2 {ratio} 0.9-2.4 [facility] Serum or plasma alkaline dedra sphatase measurementOrdered By: Alexis Quijano on 09-22-2024 ALP [Catalytic activity/Vol] 87 U/L 35-104 [facility] Serum or plasma calcium rajni urement (mass/volume)Ordered By: Alexis Quijano on 09-22-2024 Calcium [Mass/Vol] 8.6 mg/dL 7.6-11.0 [facility] Serum or plasma creatine kin ase activityOrdered By: Alexis Quijano on 09-22-2024 CK [Catalytic activity/Vol] 316 U/L High 24-195 [facility] Serum or plasma urea nitroge n measurement (mass/volume)Ordered By: Alexis Quijano on 09-22-2024 Urea nitrogen [Mass/Vol] 13 mg/dL 4-19 [facility] Sodium levelOrdered By: Alexis Quijano on 09-22-2024 Sodium [Moles/Vol] 136 mmol/L 133-145 [facility] Squamous epithelial cells de tection in urine sediment by light microscopyOrdered By: Alexis Quijano on 09-22-2024 Epithelial cells.squamous LM Ql (Urine sed) 0-5 SEEN /hpf 5-10 [facility] Total proteinOrdered By: Katty Quijano on 09-22-2024 Protein [Mass/Vol] 6.6 g/dL 5.9-8.4 [facility] Urinalysis, Completeon 09-22 BACTERIA 4+ /hpf Normal None Seen [facility] Comment on above: Order Comment: FER VEEOR TO SPECIFY Result Comment: NEED TO REORDER Performed By: #### L 400.0001, M100.678 #### [facility] [address] [place], [address] EPI,SQUAMOUS 0-5 SEEN Normal 5-10 [facility] Comment on above: Order Comment: FER CTOR TO SPECIFY Result Comment: NEED TO REORDER Performed By: #### L 400.0001, M100.678 #### [facility] [address] [place], [address] RBC 0-5 SEEN Normal 0-5 [facility] Comment on above: Order Comment: FER CTOR TO SPECIFY Result Comment: NEED TO REORDER Performed By: #### L 400.0001, M100.678 #### [facility] [address] [place], [address] WBC 50-100 SEEN Normal 0-5 [facility] Comment on above: Order Comment: FER CTOR TO SPECIFY Result Comment: NEED TO REORDER Performed By: #### L 400.0001, M100.678 #### [facility] [address] [place], [address] Mucus Ql (Urine sed) 0 SEEN Normal [facility] Comment on above: Order Comment: FER CTOR TO SPECIFY Result Comment: NEED TO REORDER Performed By: #### L 400.0001, M100.678 #### [facility] [address] [place], [address] Urine clarityOrdered By: Katty Quijano on 09-22-2024 Clarity (U) Cloudy Clear [facility] Urine color determinationOrd ered By: Alexis Quijano on 09-22-2024 Color (U) Straw Yellow [facility] Urine cultureOrdered By: Katty Quijano on 09-22-2024 Bacteria identified Cx Nom (U) Citrobacter species Abnormal [facility] Urine glucose detectionOrder ed By: Alexis Quijano on 09-22-2024 Glucose Ql (U) Normal mg/dl Normal [facility] Urine leukocyte esterase det ection by dipstickOrdered By: Alexis Quijano on 09-22-2024 Leukocyte esterase Test strip Ql (U) 500 /ul High Negative [facility] Urine pHOrdered By: Alexis rajput on 09-22-2024 pH (U) 5.0 [pH] 5.0 - 8.0 [facility] Urine sediment bacteria coun t by microscopy (number/high power field)Ordered By: Alexis Quijano on 09-22-2024 Bacteria LM.HPF (Urine sed) [#/Area] 4 /[HPF] None Seen [facility] Urine specific gravity measu rementOrdered By: Alexis Quijano on 09-22-2024 Specific gravity (U) [Rel density] 1.015 1.002-1.030 [facility] Urine urobilinogen measureme ntOrdered By: Alexis Macie on 09-22-2024 Urobilinogen Ql (U) Normal mg/dl Normal [facility] White blood cell (WBC) count Ordered By: Alexis Lopezjay on 09-22-2024 WBC (Bld) [#/Vol] 11.6 10*3/uL High 4.4-11.0 [facility] [facility] White blood cell countOrdere d By: Alexis Quijano on 09-22-2024 White blood cell count 50-100 SEEN /hpf 0-5 [facility] Urine Cultureon 09-13-2024 [facility] Citrobacter freundii [place] Count >100,000 Citrobacter freundii: REACTION Cefepime Islt BENJAMIN <=0.12 cefTRIAXone Islt BENJAMIN 0.5 S Ciprofloxacin Islt BENJAMIN 0.5 I Gentamicin Islt BENJAMIN <=1 S levoFLOXacin Islt BENJAMIN 1 I Meropenem Islt BENJAMIN <=0.25 S Nitrofurantoin Islt BENJAMIN <=16 S Pip+Tazo Islt BENJAMIN <=4 S TMP SMX Islt BENJAMIN >=320 R Normal [facility] Comment on above: Performed By: #### M 100.2200 #### [facility] [address] [place], [address] Urine cultureOrdered By: Elena Richardson on 09-11-2024 Bacteria identified Cx Nom (U) Citrobacter freundii Abnormal [facility] Urine Cultureon 08-23-2024 [facility] Citrobacter youngae [place] Count 80,000-100,000 Citrobacter youngae: REACTION Cefepime Islt BENJAMIN <=0.12 cefTRIAXone Islt BENJAMIN 8 R Ciprofloxacin Islt BENJAMIN <=0.06 S Gentamicin Islt BENJAMIN <=1 S levoFLOXacin Islt BENJAMIN <=0.12 S Meropenem Islt BENJAMIN <=0.25 S Nitrofurantoin Islt BENJAMIN <=16 S Pip+Tazo Islt BENJAMIN <=4 S TMP SMX Islt BENJAMIN <=20 S Normal [facility] Comment on above: Performed By: #### M 100.2200 #### [facility] [address] [facility] [place], [place], [id number] Urine cultureOrdered By: Elena Richardson on 08-21-2024 Bacteria identified Cx Nom (U) Citrobacter youngae Abnormal [facility] Urine Cultureon 08-07-2024 [facility] Enterococcus faecali s [place] Count 11,000-25,000 Enterococcus faecalis: REACTION Ampicillin Islt BENJAMIN <=2 Ciprofloxacin Islt BENJAMIN >=8 R Gentamicin Synergy Susc Islt SYN-R R levoFLOXacin Islt BENJAMIN >=8 R Linezolid Islt BENJAMIN 2 S Nitrofurantoin Islt BENJAMIN <=16 S Streptomycin High Pot Susc Islt SYN-S S Tetracycline Islt BENJAMIN >=16 R Vancomycin Islt BENJAMIN 1 S Normal [facility] Comment on above: Performed By: #### L 500.4050, L100.0100, L501.3620 #### [facility] [address] [place], [place], [id number] Urine cultureOrdered By: Elena Richardson on 08-05-2024 Bacteria identified Cx Nom (U) Enterococcus faecalis Abnormal [facility] 12 Lead EKGon 07-04-2024 12 Lead EKG [facility] [address] [place] [address] 12 Lead EKG 07/04/24 1343 MR#: [id number] Acct: [id number] Name: AIDEN FIELDS Rep #: [id number] : 1945 78 From: Jose Hamilton MD [...] ECG Confirmed by JOSE HAMILTON MD ([id number]), food expeditor JUVENCIO MARIA ([id number]) on 07/06/2024 8:17:29 AM Referred By: ANUPAMA Confirmed By: JOSE HAMILTON MD 07/06/24 0817 Date Jose Hamilton MD CC: Dr. Froy Cameron, DO; Dr. Erica Richardson DO Signed Normal [facility] Absolute lymphocyte countOrd ered By: Froy Cameron on 07-04-2024 Lymphocytes Auto (Unsp spec) [#/Vol] 1.95 10*3/uL 0.83-4.51 [facility] Absolute neutrophil countOrd ered By: Froy Cameron on 07-04-2024 Neutrophils (Bld) [#/Vol] 6.0 10*3/uL 2.0-7.7 [facility] Amorphous sediment detection in urine sediment by light microscopyOrdered By: Froy Cameron on 07-04-2024 Amorphous sediment LM Ql (Urine sed) 2+ PHOS [facility] Anion gap in Serum or Plasma Ordered By: Froy Cameron on 07-04-2024 Anion gap [Moles/Vol] 12 mmol/L 09-03 [facility] Automated lymphocyte count a s percentage of total leukocytesOrdered By: Froy Cameron on 07-04-2024 Lymphocytes/100 WBC Auto (Unsp spec) 21.2 % 19-41 [facility] BUN/creatinine ratioOrdered By: Froy Cameron on 07-04-2024 Urea nitrogen/Creatinine [Mass ratio] 20.2 mg/mg High 10-20 [facility] Basophil percentageOrdered B y: Froy Cameron on 07-04-2024 Basophils/100 WBC (Bld) 0.9 % 0-1 [facility] Bilirubin Test strip Ql (U)O rdered By: Froy Cameron on 07-04-2024 Bilirubin Ql (U) Negative Negative [facility] Bilirubin, totalOrdered By: Froy Cameron on 07-04-2024 Bilirubin [Mass/Vol] 0.35 mg/dL 0.00-1.30 [facility] CBC W/Diff, Automatedon 06-20 Absolute Lymph 1.95 X10 3/uL Normal 0.83-4.51 [facility] Comment on above: Performed By: #### L 501.9520, L500.4050, L100.0100 #### [facility] [address] [place], [address] Absolute Neut 6.0 X10 3/uL Normal 2.0-7.7 [facility] Comment on above: Performed By: #### L 501.9520, L500.4050, L100.0100 #### [facility] [address] [place], [address] Basophils/100 WBC (Bld) 0.9 % Normal 0-1 [facility] Comment on above: Performed By: #### L 501.9520, L500.4050, L100.0100 #### [facility] [address] [place], [address] Eosinophils/100 WBC (Bld) 3.6 % Normal 0-5 [facility] Comment on above: Performed By: #### L 501.9520, L500.4050, L100.0100 #### [facility] [address] [place], [address] Erythrocyte distribution width (RBC) [Ratio] 13.4 % Normal 11.6-14.6 [facility] Comment on above: Performed By: #### L 501.9520, L500.4050, L100.0100 #### [facility] [address] [place], [address] Hematocrit (Bld) [Volume fraction] 36.9 % Low 37-47 [facility] Comment on above: Performed By: #### L 501.9520, L500.4050, L100.0100 #### [facility] [address] [place], [address] Hemoglobin (Bld) [Mass/Vol] 12.3 g/dL Normal 12.0-15.0 [facility] Comment on above: Performed By: #### L 501.9520, L500.4050, L100.0100 #### [facility] [address] [place], [address] IG% 0.400 Normal 0.0-0.9 [facility] Comment on above: Result Comment: IG% - Immature Granulocytes (promyelocytes, myelocytes and metamyelocytes) > 1% indicates that a LEFT SHIFT is Present. Performed By: #### L 501.9520, L500.4050, L100.0100 #### [facility] [address] [place], [address] Lymphocytes/100 WBC (Bld) 21.2 % Normal 19-41 [facility] Comment on above: Performed By: #### L 501.9520, L500.4050, L100.0100 #### [facility] [address] [place], [address] MCH (RBC) [Entitic mass] 32.5 pg High 27.0-32.0 [facility] Comment on above: Performed By: #### L 501.9520, L500.4050, L100.0100 #### [facility] [address] [place], [address] MCHC (RBC) [Mass/Vol] 33.3 g/dL Normal 32-36 [facility] Comment on above: Performed By: #### L 501.9520, L500.4050, L100.0100 #### [facility] [address] [place], [address] MCV (RBC) [Entitic vol] 97.6 fL Normal 81-99 [facility] Comment on above: Performed By: #### L 501.9520, L500.4050, L100.0100 #### [facility] [address] [place], [address] Monocytes/100 WBC (Bld) 8.9 % Normal 0-10 [facility] Comment on above: Performed By: #### L 501.9520, L500.4050, L100.0100 #### [facility] [address] [place], [address] Neutrophils/100 WBC (Bld) 65.0 % Normal 47-70 [facility] Comment on above: Performed By: #### L 501.9520, L500.4050, L100.0100 #### [facility] [address] [place], [address] Nucleated RBC (Bld) [#/Vol] 0 10*3/uL Normal 0-5 [facility] Comment on above: Performed By: #### L 501.9520, L500.4050, L100.0100 #### [facility] [address] [place], [address] Platelet mean volume (Bld) [Entitic vol] 11.8 fL Normal 6.2-12.0 [facility] Comment on above: Performed By: #### L 501.9520, L500.4050, L100.0100 #### [facility] [address] [place], [address] Platelets (Bld) [#/Vol] 236 10*3/uL Normal 150-450 [facility] Comment on above: Performed By: #### L 501.9520, L500.4050, L100.0100 #### [facility] [address] [place], [address] RBC (Bld) [#/Vol] 3.78 10*6/uL Low 4.2-5.4 [facility] Comment on above: Performed By: #### L 501.9520, L500.4050, L100.0100 #### [facility] [address] [place], [address] RDW SD 48.0 fl High 35.1-43.9 [facility] Comment on above: Performed By: #### L 501.9520, L500.4050, L100.0100 #### [facility] [address] [place], [address] WBC (Bld) [#/Vol] 9.2 10*3/uL Normal 4.4-11.0 [facility] Comment on above: Performed By: #### L 501.9520, L500.4050, L100.0100 #### [facility] [address] [place], [address] Carbon dioxide, total [Moles /volume] in Central venous bloodOrdered By: Froy Cameron on 07-04-2024 CO2 [Moles/Vol] 26.3 mmol/L 21.0-32.0 [facility] Chest PA and Lateralon 07-04 Chest PA and Lateral [facility] Imaging Services [address] [place] [address] Chest PA and Lateral MR#: [id number] Acct: [id number] Name: AIDEN FIELDS Rep #: [id number] : 1945 F 78 From: Reagan Nguyen PCP: Dr. Erica Richardson DO Status: REG ER Study: Chest PA and Lateral Date of Exam: 07/04/24 Exam# [id number] Ordering Dr: Froy Cameron DO PROCEDURE: CHEST [...] Froy Cameron DO; Dr. Erica Richardson DO Bender Machine: Signed Normal [facility] Chloride assayOrdered By: Jonnie Cameron on 03-15-2025 Chloride [Moles/Vol] 100 mmol/L 98-108 [facility] Comprehensive Metabolic Prof ilon 07-04-2024 Albumin [Mass/Vol] 4.0 g/dL Normal 3.4-4.8 [facility] Comment on above: Performed By: #### L 501.9520, L500.4050, L100.0100 #### [facility] [address] [place], [address] Albumin/Globulin [Mass ratio] 1.4 {ratio} Normal 0.9-2.4 [facility] Comment on above: Performed By: #### L 501.9520, L500.4050, L100.0100 #### [facility] [address] [place], [address] ALK PHOS 82 U/L Normal 35-104 [facility] Comment on above: Performed By: #### L 501.9520, L500.4050, L100.0100 #### [facility] [address] [place], [address] ALT [Catalytic activity/Vol] 12 U/L Normal <=34 [facility] Comment on above: Performed By: #### L 501.9520, L500.4050, L100.0100 #### [facility] [address] [place], [address] AST [Catalytic activity/Vol] 21 U/L Normal <=31 [facility] Comment on above: Performed By: #### L 501.9520, L500.4050, L100.0100 #### [facility] [address] [place], [address] Bilirubin [Mass/Vol] 0.35 mg/dL Normal 0.00-1.30 [facility] Comment on above: Performed By: #### L 501.9520, L500.4050, L100.0100 #### [facility] [address] [place], [address] BUN/CRE 20.2 RATIO High 10-20 [facility] Comment on above: Performed By: #### L 501.9520, L500.4050, L100.0100 #### [facility] [address] [place], [address] Calcium [Mass/Vol] 8.6 mg/dL Normal 7.6-11.0 [facility] Comment on above: Performed By: #### L 501.9520, L500.4050, L100.0100 #### [facility] [address] [place], [address] Chloride [Moles/Vol] 100 mmol/L Normal 98-108 [facility] Comment on above: Performed By: #### L 501.9520, L500.4050, L100.0100 #### [facility] [address] [place], [address] CO2 [Moles/Vol] 26.3 mmol/L Normal 21.0-32.0 [facility] Comment on above: Performed By: #### L 501.9520, L500.4050, L100.0100 #### [facility] [address] [place], [address] Creatinine [Mass/Vol] 0.79 mg/dL Normal 0.70-1.20 [facility] Comment on above: Performed By: #### L 501.9520, L500.4050, L100.0100 #### [facility] [address] [place], [address] ECRCL 61.64 ml/min Normal 50-250 [facility] Comment on above: Performed By: #### L 501.9520, L500.4050, L100.0100 #### [facility] [address] [place], [address] GAP 12 Normal 5-15 [facility] Comment on above: Performed By: #### L 501.9520, L500.4050, L100.0100 #### [facility] [address] [place], [address] GFR/1.73 sq M.predicted among non-blacks MDRD (S/P/Bld) [Vol rate/Area] 77 mL/min/{1.73_m2} Normal >60 [facility] Comment on above: Result Comment: mL/m in/1.73m2 CKD-EPI Creatinine Equation (2020) Performed By: #### L 501.9520, L500.4050, L100.0100 #### [facility] [address] [place], [address] Globulin (S) [Mass/Vol] 2.9 g/dL Normal 2.2-4.2 [facility] Comment on above: Performed By: #### L 501.9520, L500.4050, L100.0100 #### [facility] [address] [place], [address] Glucose [Mass/Vol] 98 mg/dL Normal 70-99 [facility] Comment on above: Performed By: #### L 501.9520, L500.4050, L100.0100 #### [facility] [address] [place], [address] Potassium [Moles/Vol] 4.0 mmol/L Normal 3.3-5.1 [facility] Comment on above: Performed By: #### L 501.9520, L500.4050, L100.0100 #### [facility] [address] [place], [address] Sodium [Moles/Vol] 139 mmol/L Normal 133-145 [facility] Comment on above: Performed By: #### L 501.9520, L500.4050, L100.0100 #### [facility] [address] [place], [address] T PROT 6.9 g/dL Normal 5.9-8.4 [facility] Comment on above: Performed By: #### L 501.9520, L500.4050, L100.0100 #### [facility] [address] [place], [address] Urea nitrogen [Mass/Vol] 16 mg/dL Normal 4-19 [facility] Comment on above: Performed By: #### L 501.9520, L500.4050, L100.0100 #### [facility] [address] [place], [address] Emergency Department Summary on 07-04-2024 Emergency Department Summary [facility] Medical Records Department [address] [place] [address] Emergency Department Summary 07/04/24 MR#: [id number] Acct: [id number] Name: AIDEN FIELDS Rep #: [id number] : 1945 78 From: Froy Cameron DO [...] this could be due to her medications. [facility] Medical History Anxiety and depression Hypoparathyroidism [...] Neosporin Allergy Unknown Unknown Verified 07/04/24 13:01 ([id number])) neomycin (From Neosporin Allergy Unknown Unknown Verified 03/02/24 21:55 ([id number])) polymyxin B (From Neosporin Allergy Unknown Unknown Verified 03/02/24 21:55 ([id number])) Antihistamines - Alkylamine Allergy PT UNSURE Verified [...] thyroidectomy S (more content not included)... Normal [facility] Eosinophil percentageOrdered By: Froy Cameron on 07-04-2024 Eosinophils/100 WBC (Bld) 3.6 % 0-5 [facility] Epithelial cells.squamous LM Ql (Urine sed)Ordered By: Froy Cameron on 07-04-2024 Epithelial cells.squamous LM.HPF (Urine sed) [#/Area] 0 /[HPF] 5-10 [facility] Erythrocyte distribution wid th ratioOrdered By: Froy Cameron on 07-04-2024 Erythrocyte distribution width (RBC) [Ratio] 13.4 % 11.6-14.6 [facility] Erythrocyte distribution wid th standard deviationOrdered By: Froy Cameron on 07-04-2024 Erythrocyte distribution width (RBC) [Entitic vol] 48.0 fL High 35.1-43.9 [facility] Erythrocyte distribution width (RBC) [Ratio] 48.0 fl High 35.1-43.9 [facility] Estimation of creatinine wilmer aranceOrdered By: Froy Cameron on 07-04-2024 Estimated Creatinine Clearance Calc 61.64 ml/min 50-250 [facility] GFR/1.73 sq M.predicted kai g non-blacks MDRD (S/P/Bld) [Vol rate/Area]Ordered By: Froy Cameron on 07-04-2024 Estimated GFR (MDRD) Non-Af Amer 77 >60 [facility] Comment on above: mL/min/1.73m2 CKD-EP I Creatinine Equation (2020) Glomerular filtration rate ( GFR) estimation/1.73 sq m using serum, plasma, or whole bOrdered By: Froy Cameron on 07-04-2024 GFR/1.73 sq M.predicted among non-blacks MDRD (S/P/Bld) [Vol rate/Area] 77 mL/min/{1.73_m2} >60 [facility] Comment on above: mL/min/1.73m2 CKD-EP I Creatinine Equation (2020) Glucose Ql (U)Ordered By: Jonnie Cameron on 07-04-2024 Urine Glucose (UA) Normal mg/dl Normal [facility] Hematocrit Auto (Bld) [Volum e fraction]Ordered By: Froy Cameron on 07-04-2024 Hematocrit (Bld) [Volume fraction] 36.9 % Low 37-47 [facility] Hemoglobin measurementOrdere d By: Froy Cameron on 07-04-2024 Hemoglobin (Bld) [Mass/Vol] 12.3 g/dL 12.0-15.0 [facility] Immature granulocytes/100 WB C Auto (Bld)Ordered By: Froy Cameron on 07-04-2024 Immature granulocytes/100 WBC (Bld) 0.400 % 0.0-0.9 [facility] Comment on above: IG% - Immature Granu locytes (promyelocytes, myelocytes and metamyelocytes) > 1% indicates that a LEFT SHIFT is Present. Influenza virus A and B and SARS-CoV-2 (COVID-19) and Respiratory syncytial virus RNAOrdered By: Froy Cameron on 07-04-2024 SARS-CoV-2 (COVID-19) RNA LEONA+probe Ql (Unsp spec) [facility] Ketones Test strip Ql (U)Ord ered By: Froy Cameron on 07-04-2024 Ketones Ql (U) Negative Negative [facility] - Chemistry and C hemistry - challengeOrdered By: Froy Cameron on 07-04-2024 AST [Catalytic activity/Vol] 21 U/L <32 [facility] Lymphocytes Auto (Unsp spec) [#/Vol]Ordered By: Froy Cameron on 07-04-2024 Lymphocytes (Bld) [#/Vol] 1.95 10*3/uL 0.83-4.51 [facility] Lymphocytes/100 WBC Auto (Un sp spec)Ordered By: Froy Cameron on 07-04-2024 Lymphocytes/100 WBC (Bld) 21.2 % 19-41 [facility] M100.678on 07-04-2024 M100.678 SARS-CoV-2 (COVID 19 ) Negative INFLUENZA A Negative INFLUENZA B Negative RSV PCR Negative Normal [facility] Comment on above: Performed By: #### L 501.9520, L500.4050, L100.0100 #### [facility] [address] [place] [address]. [place], [address] MCV (mean corpuscular volume ) determinationOrdered By: Froy Cameron on 07-04-2024 MCV (RBC) [Entitic vol] 97.6 fL 81-99 [facility] Mean corpuscular hemoglobin (MCH) determinationOrdered By: Froy Cameron on 07-04-2024 MCH (RBC) [Entitic mass] 32.5 pg High 27.0-32.0 [facility] Mean corpuscular hemoglobin concentration (MCHC) determinationOrdered By: Froy Cameron on 07-04-2024 MCHC (RBC) [Mass/Vol] 33.3 g/dL 32-36 [facility] Mean platelet volume determi nationOrdered By: Froy Cameron on 07-04-2024 Platelet mean volume (Bld) [Entitic vol] 11.8 fL 6.2-12.0 [facility] Microscopic analysis of urin e for red blood cells (RBC)Ordered By: Froy Cameron on 07-04-2024 Microscopic analysis of urine for red blood cells (RBC) 0 SEEN /hpf 0-5 [facility] Urine RBC 0 SEEN /hpf 0-5 [facility] Monocyte percentageOrdered B y: Froy Cameron on 07-04-2024 Monocytes/100 WBC (Bld) 8.9 % 0-10 [facility] Mucus LM Ql (Urine sed)Order ed By: Froy Cameron on 07-04-2024 Mucus Ql (Urine sed) 0 SEEN /hpf [facility] Neutrophil percentageOrdered By: Froy Cameron on 07-04-2024 Neutrophils/100 WBC (Bld) 65.0 % 47-70 [facility] Nitrite Test strip Ql (U)Ord ered By: Froy Cameron on 07-04-2024 Nitrite Ql (U) Negative Negative [facility] Nucleated red blood cell per centageOrdered By: Froy Cameron on 07-04-2024 Nucleated RBC/100 WBC (Bld) [Ratio] 0 % 0-5 [facility] Platelet countOrdered By: Jonnie Cameron on 07-04-2024 Platelets (Bld) [#/Vol] 236 10*3/uL 150-450 [facility] Potassium (Unsp spec) [Mass/ Vol]Ordered By: Froy Cameron on 07-04-2024 Potassium [Moles/Vol] 4.0 mmol/L 3.3-5.1 [facility] Potassium measurement (mass/ volume)Ordered By: Froy Cameron on 07-04-2024 Potassium (Unsp spec) [Mass/Vol] 4.0 mmol/L 3.3-5.1 [facility] Protein Test strip Ql (U)Ord ered By: Froy Cameron on 07-04-2024 Protein Ql (U) Negative Negative [facility] RBC Auto (Bld) [#/Vol]Ordere d By: Froy Cameron on 07-04-2024 RBC (Bld) [#/Vol] 3.78 10*6/uL Low 4.2-5.4 [facility] Serum creatinine measurement (mass/volume)Ordered By: Froy Cameron on 07-04-2024 Creatinine [Mass/Vol] 0.79 mg/dL 0.70-1.20 [facility] Serum globulin measurementOr dered By: Froy Cameron on 07-04-2024 Globulin (S) [Mass/Vol] 2.9 g/dL 2.2-4.2 [facility] Serum glucose measurement (m ass/volume)Ordered By: Froy Cameron on 07-04-2024 Glucose [Mass/Vol] 98 mg/dL 70-99 [facility] Serum or plasma alanine kaur otransferase (ALT) measurementOrdered By: Froy Cameron on 07-04-2024 ALT [Catalytic activity/Vol] 12 U/L <35 [facility] Serum or plasma albumin rajni urement (mass/volume)Ordered By: Froy Cameron on 07-04-2024 Albumin [Mass/Vol] 4.0 g/dL 3.4-4.8 [facility] Serum or plasma albumin/glob ulin mass ratioOrdered By: Froy Cameron 07-04-2024 Albumin/Globulin [Mass ratio] 1.4 {ratio} 0.9-2.4 [facility] Serum or plasma alkaline dedra sphatase measurementOrdered By: Froy Cameron 07-04-2024 ALP [Catalytic activity/Vol] 82 U/L 35-104 [facility] Serum or plasma calcium rajni urement (mass/volume)Ordered By: Froy Cameron 07-04-2024 Calcium [Mass/Vol] 8.6 mg/dL 7.6-11.0 [facility] Serum or plasma urea nitroge n measurement (mass/volume)Ordered By: Froy Cameron 07-04-2024 Urea nitrogen [Mass/Vol] 16 mg/dL 4-19 [facility] Sodium levelOrdered By: Froy Cameron 07-04-2024 Sodium [Moles/Vol] 139 mmol/L 133-145 [facility] Squamous epithelial cells de tection in urine sediment by light microscopyOrdered By: Froy Cameron 07-04-2024 Epithelial cells.squamous LM Ql (Urine sed) 0 SEEN /hpf 5-10 [facility] TSH DL <= 0.005 mIU/L QnOrde red By: Froy Cameron on 07-04-2024 Thyroid Stimulating Hormone (TSH) 0.164 uIU/mL Low 0.300-4.200 [facility] TSH Qn 0.164 uIU/mL Low 0.300-4.200 [facility] Thyroid Stim Hormone (TSH)on 07-04-2024 TSH 0.164 uIU/mL Low 0.300-4.200 [facility] Comment on above: Performed By: #### L 501.9520, L500.4050, L100.0100 #### [facility] [address] [place], [address] Total proteinOrdered By: Zeenat Cameron on 07-04-2024 Protein [Mass/Vol] 6.9 g/dL 5.9-8.4 [facility] Urinalysis, Completeon 07-04 AMORPHOUS 2+ PHOS Normal [facility] Comment on above: Order Comment: COLLE CTOR TO SPECIFY Performed By: #### L 501.9520, L500.4050, L100.0100 #### [facility] [address] [place], [address] RBC 0 SEEN Normal 0-5 [facility] Comment on above: Order Comment: COLLE CTOR TO SPECIFY Performed By: #### L 501.9520, L500.4050, L100.0100 #### [facility] [address] [place], [address] WBC 0-5 SEEN Normal 0-5 [facility] Comment on above: Order Comment: COLLE CTOR TO SPECIFY Performed By: #### L 501.9520, L500.4050, L100.0100 #### [facility] [address] [place], [address] BACTERIA 0 SEEN Normal None Seen [facility] Comment on above: Order Comment: COLLE CTOR TO SPECIFY Performed By: #### L 501.9520, L500.4050, L100.0100 #### [facility] [address] [place], [address] EPI,SQUAMOUS 0 SEEN Normal 5-10 [facility] Comment on above: Order Comment: COLLE CTOR TO SPECIFY Performed By: #### L 501.9520, L500.4050, L100.0100 #### [facility] [address] [place], [address] Mucus Ql (Urine sed) 0 SEEN Normal [facility] Comment on above: Order Comment: COLLE CTOR TO SPECIFY Performed By: #### L 501.9520, L500.4050, L100.0100 #### [facility] [address] [place], [address] Urine blood detectionOrdered By: Froy Cameron on 07-04-2024 Urine Occult Blood Negative Negative [facility] Urine clarityOrdered By: Zeenat Cameron on 07-04-2024 Clarity (U) Clear Clear [facility] Urine color determinationOrd ered By: Froy Cameron on 07-04-2024 Color (U) Straw Yellow [facility] Urine glucose detectionOrder ed By: Froy Cameron on 07-04-2024 Glucose Ql (U) Normal mg/dl Normal [facility] Urine leukocyte esterase det ection by dipstickOrdered By: Froy Cameron on 07-04-2024 Leukocyte esterase Test strip Ql (U) Negative Negative [facility] Urine pHOrdered By: Froy gonzalez on 07-04-2024 pH (U) 8.0 [pH] 5.0 - 8.0 [facility] Urine sediment bacteria coun t by microscopy (number/high power field)Ordered By: Froy Cameron on 07-04-2024 Bacteria LM.HPF (Urine sed) [#/Area] 0 /[HPF] None Seen [facility] Urine specific gravity measu rementOrdered By: Froy Cameron on 07-04-2024 Specific gravity (U) [Rel density] 1.010 1.002-1.030 [facility] Urine urobilinogen measureme ntOrdered By: Froy Anupama on 07-04-2024 Urobilinogen Ql (U) Normal mg/dl Normal [facility] Urobilinogen Ql (U)Ordered B y: Froy Lundbergalexandria on 07-04-2024 Urine Urobilinogen Normal mg/dl Normal [facility] White blood cell (WBC) count Ordered By: Froy Lundbergalexandria on 07-04-2024 WBC (Bld) [#/Vol] 9.2 10*3/uL 4.4-11.0 [facility] White blood cell countOrdere d By: Froy Anupama on 07-04-2024 Urine WBC 0-5 SEEN /hpf 0-5 [facility] White blood cell count 0-5 SEEN /hpf 0-5 [facility] Chest PA and Lateralon 06-04 Chest PA and Lateral [facility] Services [address] [place], [place] [address] Chest PA and Lateral MR#: [id number] Acct: [id number] Name: AIDEN FIELDS Rep #: [id number] : 1945 F 78 From: Vernon Mckenna PCP: Dr. Erica Richardson DO Status: REG CLI Study: Chest PA and Lateral Date of Exam: 06/04/24 Exam# [id number] Ordering Dr: Erica Richardson DO PROCEDURE: CHEST [...] noted. No evidence of cardiomegaly. Reading Location: [address] CC: Dr. Erica Malys, DO Bender Machine: Signed Normal [facility] Urine Cultureon 05-29-2024 [facility] Enterobacter cloacae complex [place] Count 25,000-50,000 Enterobacter cloacae complex: REACTION Cefepime Islt BENJAMIN <=0.12 Ciprofloxacin Islt BENJAMIN <=0.06 S Gentamicin Islt BENJAMIN <=1 S levoFLOXacin Islt BENJAMIN <=0.12 S Meropenem Islt BENJAMIN <=0.25 S Nitrofurantoin Islt BENJAMIN 32 S Pip+Tazo Islt BENJAMIN <=4 S TMP SMX Islt BENJAMIN >=320 R Normal [facility] Comment on above: Performed By: #### L 501.9520, L500.4050, L100.0100 #### [facility] [address] [place], [place], [id number] Absolute lymphocyte countOrd ered By: Erica Richardson on 05-27-2024 Lymphocytes Auto (Unsp spec) [#/Vol] 1.94 10*3/uL 0.83-4.51 [facility] Absolute neutrophil countOrd ered By: Erica Richardson on 05-27-2024 Neutrophils (Bld) [#/Vol] 5.9 10*3/uL 2.0-7.7 [facility] Albumin to globulin ratioOrd ered By: Erica Richardson on 05-27-2024 Albumin/Globulin [Mass ratio] 0.9 {ratio} 0.9-2.4 [facility] Automated lymphocyte count a s percentage of total leukocytesOrdered By: Erica Richardson on 05-27-2024 Lymphocytes/100 WBC Auto (Unsp spec) 21.2 % 19-41 [facility] Basophil percentageOrdered B y: Erica Richardson on 05-27-2024 Basophils/100 WBC (Bld) 0.8 % 0-1 [facility] Bilirubin, totalOrdered By: Erica Richardson on 05-27-2024 Bilirubin [Mass/Vol] 0.60 mg/dL 0.20-1.00 [facility] Comment on above: For patients on eltr ombopag therapy, use of Dimension [place] TBIL is not recommended. Blood urea nitrogen (BUN)/cr eatinine ratioOrdered By: Erica Richardson on 05-27-2024 Urea nitrogen/Creatinine [Mass ratio] 15.1 mg/mg 10-20 [facility] C-reactive protein measureme nt by high sensitivity methodOrdered By: Erica Richardson on 05-27-2024 C-Reactive Protein Extended Range 6.23 mg/L High 0.0-3.0 [facility] Comment on above: C-Reactive Protein ( CRP) provides useful information for thediagnosis, therapy and monitoring of inflammatory processesand associated diseases. For the evaluation of Relative Riskfor Cardiovascular Disease, a High Sensitivity CRP (HSCRP)should be ordered. C-reactive protein measurement by high sensitivity method 6.23 mg/L High 0.0-3.0 [facility] Comment on above: C-Reactive Protein ( CRP) provides useful information for thediagnosis, therapy and monitoring of inflammatory processesand associated diseases. For the evaluation of Relative Riskfor Cardiovascular Disease, a High Sensitivity CRP (HSCRP)should be ordered. CBC W/Diff, Automatedon Absolute Lymph 1.94 X10 3/uL Normal 0.83-4.51 [facility] Comment on above: Performed By: #### L 501.9520, L500.4050, L100.0100 #### [facility] [address] [place], [address] Absolute Neut 5.9 X10 3/uL Normal 2.0-7.7 [facility] Comment on above: Performed By: #### L 501.9520, L500.4050, L100.0100 #### [facility] [address] [place], [address] Basophils/100 WBC (Bld) 0.8 % Normal 0-1 [facility] Comment on above: Performed By: #### L 501.9520, L500.4050, L100.0100 #### [facility] [address] [place], [address] Eosinophils/100 WBC (Bld) 3.8 % Normal 0-5 [facility] Comment on above: Performed By: #### L 501.9520, L500.4050, L100.0100 #### [facility] [address] [place], [address] Erythrocyte distribution width (RBC) [Ratio] 14.0 % Normal 11.6-14.6 [facility] Comment on above: Performed By: #### L 501.9520, L500.4050, L100.0100 #### [facility] [address] [place], [address] Hematocrit (Bld) [Volume fraction] 39.2 % Normal 37-47 [facility] Comment on above: Performed By: #### L 501.9520, L500.4050, L100.0100 #### [facility] [address] [place], [address] Hemoglobin (Bld) [Mass/Vol] 12.6 g/dL Normal 12.0-15.0 [facility] Comment on above: Performed By: #### L 501.9520, L500.4050, L100.0100 #### [facility] [address] [place], [address] IG% 0.300 Normal 0.0-0.9 [facility] Comment on above: Result Comment: IG% - Immature Granulocytes (promyelocytes, myelocytes and metamyelocytes) > 1% indicates that a LEFT SHIFT is Present. Performed By: #### L 501.9520, L500.4050, L100.0100 #### [facility] [address] [place], [address] Lymphocytes/100 WBC (Bld) 21.2 % Normal 19-41 [facility] Comment on above: Performed By: #### L 501.9520, L500.4050, L100.0100 #### [facility] [address] [place], [address] MCH (RBC) [Entitic mass] 32.0 pg Normal 27.0-32.0 [facility] Comment on above: Performed By: #### L 501.9520, L500.4050, L100.0100 #### [facility] [address] [place], [address] MCHC (RBC) [Mass/Vol] 32.1 g/dL Normal 32-36 [facility] Comment on above: Performed By: #### L 501.9520, L500.4050, L100.0100 #### [facility] [address] [place], [address] MCV (RBC) [Entitic vol] 99.5 fL High 81-99 [facility] Comment on above: Performed By: #### L 501.9520, L500.4050, L100.0100 #### [facility] [address] [place], [address] Monocytes/100 WBC (Bld) 9.0 % Normal 0-10 [facility] Comment on above: Performed By: #### L 501.9520, L500.4050, L100.0100 #### [facility] [address] [place], [address] Neutrophils/100 WBC (Bld) 64.9 % Normal 47-70 [facility] Comment on above: Performed By: #### L 501.9520, L500.4050, L100.0100 #### [facility] [address] [place], [address] Nucleated RBC (Bld) [#/Vol] 0 10*3/uL Normal 0-5 [facility] Comment on above: Performed By: #### L 501.9520, L500.4050, L100.0100 #### [facility] [address] [place], [address] Platelet mean volume (Bld) [Entitic vol] 12.7 fL High 6.2-12.0 [facility] Comment on above: Performed By: #### L 501.9520, L500.4050, L100.0100 #### [facility] [address] [place], [address] Platelets (Bld) [#/Vol] 239 10*3/uL Normal 150-450 [facility] Comment on above: Performed By: #### L 501.9520, L500.4050, L100.0100 #### [facility] [address] [place], [address] RBC (Bld) [#/Vol] 3.94 10*6/uL Low 4.2-5.4 [facility] Comment on above: Performed By: #### L 501.9520, L500.4050, L100.0100 #### [facility] [address] [place], [address] RDW SD 51.3 fl High 35.1-43.9 [facility] Comment on above: Performed By: #### L 501.9520, L500.4050, L100.0100 #### [facility] [address] [place], [address] WBC (Bld) [#/Vol] 9.1 10*3/uL Normal 4.4-11.0 [facility] Comment on above: Performed By: #### L 501.9520, L500.4050, L100.0100 #### [facility] [address] [place], [address] CRPon 05-27-2024 C-REACTIVE PROT 6.23 mg/L High 0.0-3.0 [facility] Comment on above: Result Comment: C-Re active Protein (CRP) provides useful information for the diagnosis, therapy and monitoring of inflammatory processes and associated diseases. For the evaluation of Relative Risk for Cardiovascular Disease, a High Sensitivity CRP (HSCRP) should be ordered. Performed By: #### L 501.9520, L500.4050, L100.0100 #### [facility] [address] [place], [address] Carbon dioxide measurementOr dered By: Erica Richardson on 05-27-2024 CO2 [Moles/Vol] 26.0 mmol/L 21.0-32.0 [facility] Chloride measurementOrdered By: Erica Richardson on 05-27-2024 Chloride [Moles/Vol] 99 mmol/L 98-107 [facility] Comprehensive Metabolic Prof ilon 05-27-2024 Albumin [Mass/Vol] 3.6 g/dL Normal 3.2-5.0 [facility] Comment on above: Performed By: #### L 501.9520, L500.4050, L100.0100 #### [facility] [address] [place], [address] Albumin/Globulin [Mass ratio] 0.9 {ratio} Normal 0.9-2.4 [facility] Comment on above: Performed By: #### L 501.9520, L500.4050, L100.0100 #### [facility] [address] [place], [address] ALK P 90 U/L Normal 45-117 [facility] Comment on above: Performed By: #### L 501.9520, L500.4050, L100.0100 #### [facility] [address] [place], [address] ALT [Catalytic activity/Vol] 20 U/L Normal 13-56 [facility] Comment on above: Performed By: #### L 501.9520, L500.4050, L100.0100 #### [facility] [address] [place], [address] AST [Catalytic activity/Vol] 17 U/L Normal 15-37 [facility] Comment on above: Performed By: #### L 501.9520, L500.4050, L100.0100 #### [facility] [address] [place], [address] Bilirubin [Mass/Vol] 0.60 mg/dL Normal 0.20-1.00 [facility] Comment on above: Result Comment: For patients on eltrombopag therapy, use of Dimension [place] TBIL is not recommended. Performed By: #### L 501.9520, L500.4050, L100.0100 #### [facility] [address] [place], [address] BUN/CRE 15.1 RATIO Normal 10-20 [facility] Comment on above: Performed By: #### L 501.9520, L500.4050, L100.0100 #### [facility] [address] [place], [address] CA,Total 8.8 mg/dL Normal 8.5-10.1 [facility] Comment on above: Performed By: #### L 501.9520, L500.4050, L100.0100 #### [facility] [address] [place], [address] Chloride [Moles/Vol] 99 mmol/L Normal 98-107 [facility] Comment on above: Performed By: #### L 501.9520, L500.4050, L100.0100 #### [facility] [address] [place], [address] CO2 [Moles/Vol] 26.0 mmol/L Normal 21.0-32.0 [facility] Comment on above: Performed By: #### L 501.9520, L500.4050, L100.0100 #### [facility] [address] [place], [address] Creatinine [Mass/Vol] 0.79 mg/dL Normal 0.55-1.02 [facility] Comment on above: Result Comment: The validity of the calculated GFR GFRAA in patients over 70 years has not been determined. Clinical correlation is essential. Performed By: #### L 501.9520, L500.4050, L100.0100 #### [facility] [address] [place], [address] EST GFR - AA 90 mL/min Normal >60 [facility] Comment on above: Result Comment: Afri can Micronesian GFR Calc Performed By: #### L 501.9520, L500.4050, L100.0100 #### [facility] [address] [place], [address] GAP 11 Normal 5-15 [facility] Comment on above: Performed By: #### L 501.9520, L500.4050, L100.0100 #### [facility] [address] [place], [address] GFR/1.73 sq M.predicted among non-blacks MDRD (S/P/Bld) [Vol rate/Area] 75 mL/min/{1.73_m2} Normal >60 [facility] Comment on above: Result Comment: Non- GFR Calc Performed By: #### L 501.9520, L500.4050, L100.0100 #### [facility] [address] [place], [address] Globulin (S) [Mass/Vol] 4.1 g/dL Normal 2.2-4.2 [facility] Comment on above: Performed By: #### L 501.9520, L500.4050, L100.0100 #### [facility] [address] [place], [address] Glucose [Mass/Vol] 87 mg/dL Normal 74-106 [facility] Comment on above: Performed By: #### L 501.9520, L500.4050, L100.0100 #### [facility] [address] [place], [address] Potassium [Moles/Vol] 3.9 mmol/L Normal 3.5-5.1 [facility] Comment on above: Performed By: #### L 501.9520, L500.4050, L100.0100 #### [facility] [address] [place], [address] Sodium [Moles/Vol] 136 mmol/L Normal 136-145 [facility] Comment on above: Performed By: #### L 501.9520, L500.4050, L100.0100 #### [facility] [address] [place], [address] T PROT 7.7 g/dL Normal 6.4-8.2 [facility] Comment on above: Performed By: #### L 501.9520, L500.4050, L100.0100 #### [facility] [address] [place], [address] Urea nitrogen [Mass/Vol] 12 mg/dL Normal 7-18 [facility] Comment on above: Performed By: #### L 501.9520, L500.4050, L100.0100 #### [facility] [address] [place], [address] Direct serum free thyroxine (FT4) measurementOrdered By: Erica Richardson on 05-27-2024 Free T4 [Mass/Vol] 1.14 ng/dL 0.76-1.46 [facility] Eosinophil percentageOrdered By: Erica Richardson on 05-27-2024 Eosinophils/100 WBC (Bld) 3.8 % 0-5 [facility] Erythrocyte Sed Rateon 05-27 SED RATE 35 mm/hr High 0-30 [facility] Comment on above: Performed By: #### L 501.9520, L500.4050, L100.0100 #### [facility] [address] [place], [address] Erythrocyte distribution wid th ratioOrdered By: Erica Richardson on 05-27-2024 Erythrocyte distribution width (RBC) [Ratio] 14.0 % 11.6-14.6 [facility] Erythrocyte distribution wid th standard deviationOrdered By: Erica Richardson on 05-27-2024 Erythrocyte distribution width (RBC) [Entitic vol] 51.3 fL High 35.1-43.9 [facility] Erythrocyte distribution width (RBC) [Ratio] 51.3 fl High 35.1-43.9 [facility] Erythrocyte sedimentation ra teOrdered By: Erica Richardson on 05-27-2024 ESR (Bld) [Velocity] 35 mm/h High 0-30 [facility] Estimated glomerular filtrat ion rate (GFR) AmericanOrdered By: Erica Richardson on 05-27-2024 Estimated GFR (MDRD) Amer 90 mL/min >60 [facility] Comment on above: GFR Calc Free T3on 05-27-2024 Free T3 [Mass/Vol] 2.0 pg/mL Low 2.18-3.98 [facility] Comment on above: Performed By: #### L 501.9520, L500.4050, L100.0100 #### [facility] [address] [place] [address]. [place], [place], [id number] Free D5Soisvis By: Erica graham on 05-27-2024 Free T3 [Mass/Vol] 2.0 pg/mL Low 2.18-3.98 [facility] Free Triiodothyronine (T3) pg/dL 2.0 pg/mL Low 2.18-3.98 [facility] Glomerular filtration rate ( GFR) estimationOrdered By: Erica Richardson on 05-27-2024 Estimated GFR (MDRD) Non-Af Amer 75 mL/min >60 [facility] Comment on above: Non- GFR Calc GFR/1.73 sq M.predicted among non-blacks MDRD (S/P/Bld) [Vol rate/Area] 75 mL/min/{1.73_m2} >60 [facility] Comment on above: Non- GFR Calc Glucose measurementOrdered B y: Erica Richardson on 05-27-2024 Glucose [Mass/Vol] 87 mg/dL 74-106 [facility] Hematocrit Auto (Bld) [Volum e fraction]Ordered By: Erica Richardson on 05-27-2024 Hematocrit (Bld) [Volume fraction] 39.2 % 37-47 [facility] Hemoglobin measurementOrdere d By: Erica Richardson on 05-27-2024 Hemoglobin (Bld) [Mass/Vol] 12.6 g/dL 12.0-15.0 [facility] Immature granulocytes/100 WB C Auto (Bld)Ordered By: Erica Richardson on 05-27-2024 Immature granulocytes/100 WBC (Bld) 0.300 % 0.0-0.9 [facility] Comment on above: IG% - Immature Granu locytes (promyelocytes, myelocytes and metamyelocytes) > 1% indicates that a LEFT SHIFT is Present. Laboratory - Chemistry and C hemistry - challengeOrdered By: Erica Richardson on 05-27-2024 AST [Catalytic activity/Vol] 17 U/L 15-37 [facility] Lymphocytes Auto (Unsp spec) [#/Vol]Ordered By: Erica Richardson on 05-27-2024 Lymphocytes (Bld) [#/Vol] 1.94 10*3/uL 0.83-4.51 [facility] Lymphocytes/100 WBC Auto (Un sp spec)Ordered By: Erica Richardson on 05-27-2024 Lymphocytes/100 WBC (Bld) 21.2 % 19-41 [facility] MCV (mean corpuscular volume ) determinationOrdered By: Erica Richardson on 05-27-2024 MCV (RBC) [Entitic vol] 99.5 fL High 81-99 [facility] Mean corpuscular hemoglobin (MCH) determinationOrdered By: Erica Richardson on 05-27-2024 MCH (RBC) [Entitic mass] 32.0 pg 27.0-32.0 [facility] Mean corpuscular hemoglobin concentration (MCHC) determinationOrdered By: Erica Richardson on 05-27-2024 MCHC (RBC) [Mass/Vol] 32.1 g/dL 32-36 [facility] Mean platelet volume determi nationOrdered By: Erica Richardson on 05-27-2024 Platelet mean volume (Bld) [Entitic vol] 12.7 fL High 6.2-12.0 [facility] Monocyte percentageOrdered B y: Erica Richardson on 05-27-2024 Monocytes/100 WBC (Bld) 9.0 % 0-10 [facility] Neutrophil percentageOrdered By: Erica Richardson on 05-27-2024 Neutrophils/100 WBC (Bld) 64.9 % 47-70 [facility] Nucleated red blood cell per centageOrdered By: Erica Richardson on 05-27-2024 Nucleated RBC/100 WBC (Bld) [Ratio] 0 % 0-5 [facility] Platelet countOrdered By: Anny Richardson on 05-27-2024 Platelets (Bld) [#/Vol] 239 10*3/uL 150-450 [facility] Potassium measurementOrdered By: Erica Richardson on 05-27-2024 Potassium [Moles/Vol] 3.9 mmol/L 3.5-5.1 [facility] RBC Auto (Bld) [#/Vol]Ordere d By: Erica Richardson on 05-27-2024 RBC (Bld) [#/Vol] 3.94 10*6/uL Low 4.2-5.4 [facility] Serum anion gap measurementO rdered By: Erica Richardson on 05-27-2024 Anion gap [Moles/Vol] 11 mmol/L 5-15 [facility] Serum globulin measurementOr dered By: Erica Richardson on 05-27-2024 Globulin (S) [Mass/Vol] 4.1 g/dL 2.2-4.2 [facility] Serum or plasma alanine kaur otransferase (ALT) measurementOrdered By: Erica Richardson on 05-27-2024 ALT [Catalytic activity/Vol] 20 U/L 13-56 [facility] Serum or plasma albumin rajni urement (mass/volume)Ordered By: Erica Richardson on 05-27-2024 Albumin [Mass/Vol] 3.6 g/dL 3.2-5.0 [facility] Serum or plasma alkaline dedra sphatase measurementOrdered By: Erica Richardson on 05-27-2024 ALP [Catalytic activity/Vol] 90 U/L 45-117 [facility] Serum or plasma calcium rajni urement (mass/volume)Ordered By: Erica Richardson on 05-27-2024 Calcium [Mass/Vol] 8.8 mg/dL 8.5-10.1 [facility] Serum or plasma creatinine m easurement (mass/volume)Ordered By: Erica Richardson on 05-27-2024 Creatinine [Mass/Vol] 0.79 mg/dL 0.55-1.02 [facility] Comment on above: The validity of the calculated GFR & GFRAA in patients over 70 years has not been determined. Clinical correlation is essential. Serum or plasma thyroid stim ulating hormone (TSH) measurement (units/volume)Ordered By: Erica Richardson on 05-27-2024 TSH Qn 2.650 uIU/mL 0.358-3.740 [facility] Serum or plasma urea nitroge n measurement (mass/volume)Ordered By: Erica Richardson on 05-27-2024 Urea nitrogen [Mass/Vol] 12 mg/dL 7-18 [facility] Sodium levelOrdered By: Erica Richardson on 05-27-2024 Sodium [Moles/Vol] 136 mmol/L 136-145 [facility] T4 Free Directon 05-27-2024 T4 FREE DIRECT 1.14 ng/dL Normal 0.76-1.46 [facility] Comment on above: Performed By: #### L 501.9520, L500.4050, L100.0100 #### [facility] [address] [place], [place], [id number] TSH QnOrdered By: Erica Richardson on 05-27-2024 Thyroid Stimulating Hormone (TSH) 2.650 uIU/mL 0.358-3.740 [facility] Thyroid Stim Hormone (TSH)on 05-27-2024 TSH 2.650 uIU/mL Normal 0.358-3.740 [facility] Comment on above: Performed By: #### L 501.9520, L500.4050, L100.0100 #### [facility] [address] [place], [place], [id number] Total proteinOrdered By: Elena Richardson on 02-05-2025 Protein [Mass/Vol] 7.7 g/dL 6.4-8.2 [facility] Urine cultureOrdered By: Elena Richardson on 05-27-2024 Bacteria identified Cx Nom (U) Enterobacter cloacae complex Abnormal [facility] White blood cell (WBC) count Ordered By: Erica Richardson on 05-27-2024 WBC (Bld) [#/Vol] 9.1 10*3/uL 4.4-11.0 [facility] Urine Cultureon 04-26-2024 [facility] Presumptive E. coli [place] Count >100,000 Presumptive E. coli: REACTION Ampicillin [...] TMP SMX Islt BENJAMIN <=20 S Normal [facility] Comment on above: Performed By: #### L 500.4050, L100.0100, L501.3620 #### [facility] [address] [place], [address] Urine cultureOrdered By: Elena Richardson on 04-24-2024 Bacteria identified Cx Nom (U) Presumptive E. coli Abnormal [facility] 12 Lead EKGon 03-02-2024 12 Lead EKG [facility] [address] [place] [address] 12 Lead EKG 03/02/24 2201 MR#: [id number] Acct: [id number] Name: AIDEN FIELDS Rep #: [id number] : 1945 78 From: Jose Hamilton MD [...] ECG Confirmed by JOSE HAMILTON MD ([id number]), food expeditor JUVENCIO MARIA ([id number]) on 03/03/2024 6:42:17 AM Referred By: Confirmed By: JOSE HAMILTON MD 03/03/24 0642 Date Jose Hamilton MD CC: Dr. Cheikh Ybarra DO; Dr. Erica Richardson DO Signed Normal [facility] Emergency Department Summary on 03-02-2024 Emergency Department Summary [facility] Medical Records Department [address] [place] [id number] Emergency Department Summary 03/02/24 MR#: [id number] Acct: [id number] Name: AIDEN FIELDS Rep #: [id number] : 1945 78 From: Cheikh Ybarra DO [...] any difficulty ambulating around the house today. [facility] Medical History Anxiety and depression Hypoparathyroidism [...] Neosporin Allergy Unknown Unknown Verified 03/02/24 21:55 ([id number])) neomycin (From Neosporin Allergy Unknown Unknown Verified 03/02/24 21:55 (dzy-njh-nqphn)) polymyxin B (From Neosporin Allergy Unknown Unknown Verified 03/02/24 21:55 (wrv-rjx-eihwz)) Antihistamines - Alkylamine Allergy PT UNSURE Verified [...] per d (more content not included)... Normal [facility] Emergency Department Summary on 12-18-2023 Emergency Department Summary [facility] Medical Records Department [address] [place] [address] Emergency Department Summary 12/18/23 MR#: [id number] Acct: [id number] Name: AIDEN FIELDS Consuelo Rep #: [id number] : 1945 78 From: Jorge Cardona MD PCP: Dr. Erica Malys, DO Status:REG ER Location: ED HPI History [...] symptoms: No Recent Illness/Hospitalization : No PFSH PFSH Medical History Anxiety and depression Hypoparathyroidism [...] Neosporin Allergy Unknown Unknown Verified 12/18/23 19:57 ([id number])) neomycin (From Neosporin Allergy Unknown Unknown Verified 12/18/23 19:57 (fur-gbe-fcgre)) polymyxin B (From Neosporin Allergy Unknown Unknown Verified 12/18/23 19:57 (rdf-ojp-cmabf)) Antihistamines - Alkylamine Allergy PT UNSURE Verified 12/18/23 19:57 OF REACTION diphenhydramine (From Allergy PT UNSURE Verified 12/18/23 19:57 Benadryl) OF REACTION Family History Unknown Thyroid disorder Cancer High (more content not included)... Normal [facility] ANTINUCLEAR ANTIBODIES DIREC Ton 12-13-2023 MASHA,DIRECT Negative Normal Negative [facility] Comment on above: Result Comment: Perf ormed at: [facility] [address] [id number] [employer]: Mendez Dominguez PhD, Phone: [phone] Performed By: #### L 905.3506, P917.8146, L100.0100 #### [facility] [address] [place], [place], [id number] CCP IgG Antibodieson 024 CCP IgG Ab. 3 units Normal 0-19 [facility] Comment on above: Result Comment: Nega tive <20 Weak positive 20 - 39 Moderate positive 40 - 59 Strong positive >59 Performed at: [facility] [address] [id number] [employer]: Mendez Dominguez PhD, Phone: [phone] Performed By: #### L 425.8437, L5004050, L100.0100 #### [facility] [address] [place], [place], [address] CBC W/Diff, Automatedon 11-21 Absolute Lymph 1.28 X10 3/uL Normal 0.83-4.51 [facility] Comment on above: Performed By: #### M 100.2200 #### [facility] [address] [place], [place], [address] Absolute Neut 9.6 X10 3/uL High 2.0-7.7 [facility] Comment on above: Performed By: #### M 100.2200 #### [facility] [address] [place], [address] Basophils/100 WBC (Bld) 0.6 % Normal 0-1 [facility] Comment on above: Performed By: #### M 100.2200 #### [facility] [address] [place], [address] Eosinophils/100 WBC (Bld) 2.9 % Normal 0-5 [facility] Comment on above: Performed By: #### M 100.2200 #### [facility] [address] [place], [address] Erythrocyte distribution width (RBC) [Ratio] 13.2 % Normal 11.6-14.6 [facility] Comment on above: Performed By: #### M 100.2200 #### [facility] [address] [place], [address] Hematocrit (Bld) [Volume fraction] 39.3 % Normal 37-47 [facility] Comment on above: Performed By: #### M 100.2200 #### [facility] [address] [place], [address] Hemoglobin (Bld) [Mass/Vol] 12.4 g/dL Normal 12.0-15.0 [facility] Comment on above: Performed By: #### M 100.2200 #### [facility] [address] [place], [address] IG% 0.200 Normal 0.0-0.9 [facility] Comment on above: Result Comment: IG% - Immature Granulocytes (promyelocytes, myelocytes and metamyelocytes) > 1% indicates that a LEFT SHIFT is Present. Performed By: #### M 100.2200 #### [facility] [address] [place], [address] Lymphocytes/100 WBC (Bld) 10.5 % Low 19-41 [facility] Comment on above: Performed By: #### M 100.2200 #### [facility] [address] [place], [address] MCH (RBC) [Entitic mass] 32.5 pg High 27.0-32.0 [facility] Comment on above: Performed By: #### M 100.2200 #### [facility] [address] [place], [address] MCHC (RBC) [Mass/Vol] 31.6 g/dL Low 32-36 [facility] Comment on above: Performed By: #### M 100.2200 #### [facility] [address] [place], [address] MCV (RBC) [Entitic vol] 102.9 fL High 81-99 [facility] Comment on above: Performed By: #### M 100.2200 #### [facility] [address] [place], [address] Monocytes/100 WBC (Bld) 7.8 % Normal 0-10 [facility] Comment on above: Performed By: #### M 100.2200 #### [facility] [address] [place], [address] Neutrophils/100 WBC (Bld) 78.0 % High 47-70 [facility] Comment on above: Performed By: #### M 100.2200 #### [facility] [address] [place], [address] Nucleated RBC (Bld) [#/Vol] 0 10*3/uL Normal 0-5 [facility] Comment on above: Performed By: #### M 100.2200 #### [facility] [address] [place], [address] Platelet mean volume (Bld) [Entitic vol] 13.1 fL High 6.2-12.0 [facility] Comment on above: Performed By: #### M 100.2200 #### [facility] [address] [place], [address] Platelets (Bld) [#/Vol] 215 10*3/uL Normal 150-450 [facility] Comment on above: Performed By: #### M 100.2200 #### [facility] [address] [place], [address] RBC (Bld) [#/Vol] 3.82 10*6/uL Low 4.2-5.4 [facility] Comment on above: Performed By: #### M 100.2200 #### [facility] [address] [place], [address] RDW SD 49.6 fl High 35.1-43.9 [facility] Comment on above: Performed By: #### M 100.2200 #### [facility] [address] [place], [address] WBC (Bld) [#/Vol] 12.2 10*3/uL High 4.4-11.0 [facility] Comment on above: Performed By: #### M 100.2200 #### [facility] [address] [place], [address] CRPon 12-12-2023 C-REACTIVE PROT 40.10 mg/L High 0.0-3.0 [facility] Comment on above: Result Comment: C-Re active Protein (CRP) provides useful information for the diagnosis, therapy and monitoring of inflammatory processes and associated diseases. For the evaluation of Relative Risk for Cardiovascular Disease, a High Sensitivity CRP (HSCRP) should be ordered. Performed By: #### M 100.2200 #### [facility] [address] [place], [address] Comprehensive Metabolic Prof ilon 12-12-2023 Albumin [Mass/Vol] 3.8 g/dL Normal 3.2-5.0 [facility] Comment on above: Performed By: #### M 100.2200 #### [facility] [address] [place], [address] Albumin/Globulin [Mass ratio] 0.9 {ratio} Normal 0.9-2.4 [facility] Comment on above: Performed By: #### M 100.2200 #### [facility] [address] [place], [address] ALK P 90 U/L Normal 45-117 [facility] Comment on above: Performed By: #### M 100.2200 #### [facility] [address] [place], [address] ALT [Catalytic activity/Vol] 22 U/L Normal 13-56 [facility] Comment on above: Performed By: #### M 100.2200 #### [facility] [address] [place], [address] AST [Catalytic activity/Vol] 21 U/L Normal 15-37 [facility] Comment on above: Performed By: #### M 100.2200 #### [facility] [address] [place], [address] Bilirubin [Mass/Vol] 0.90 mg/dL Normal 0.20-1.00 [facility] Comment on above: Result Comment: For patients on eltrombopag therapy, use of Dimension [place] TBIL is not recommended. Performed By: #### M 100.2200 #### [facility] [address] [place], [address] BUN/CRE 12.5 RATIO Normal 10-20 [facility] Comment on above: Performed By: #### M 100.2200 #### [facility] [address] [place], [address] CA,Total 9.1 mg/dL Normal 8.5-10.1 [facility] Comment on above: Performed By: #### M 100.2200 #### [facility] [address] [place], [address] Chloride [Moles/Vol] 103 mmol/L Normal 98-107 [facility] Comment on above: Performed By: #### M 100.2200 #### [facility] [address] [place], [address] CO2 [Moles/Vol] 30.0 mmol/L Normal 21.0-32.0 [facility] Comment on above: Performed By: #### M 100.2200 #### [facility] [address] [place], [address] Creatinine [Mass/Vol] 0.96 mg/dL Normal 0.55-1.02 [facility] Comment on above: Result Comment: The validity of the calculated GFR GFRAA in patients over 70 years has not been determined. Clinical correlation is essential. Performed By: #### M 100.2200 #### [facility] [address] [place], [address] EST GFR - AA 72 mL/min Normal >60 [facility] Comment on above: Result Comment: Afri can Micronesian GFR Calc Performed By: #### M 100.2200 #### [facility] [address] [place], [address] GAP 7 Normal 5-15 [facility] Comment on above: Performed By: #### M 100.2200 #### [facility] [address] [place], [address] GFR/1.73 sq M.predicted among non-blacks MDRD (S/P/Bld) [Vol rate/Area] 60 mL/min/{1.73_m2} Normal >60 [facility] Comment on above: Result Comment: Non- GFR Calc Performed By: #### M 100.2200 #### [facility] [address] [place], [address] Globulin (S) [Mass/Vol] 4.2 g/dL Normal 2.2-4.2 [facility] Comment on above: Performed By: #### M 100.2200 #### [facility] [address] [place], [address] Glucose [Mass/Vol] 99 mg/dL Normal 74-106 [facility] Comment on above: Performed By: #### M 100.2200 #### [facility] [address] [place], [address] Potassium [Moles/Vol] 3.6 mmol/L Normal 3.5-5.1 [facility] Comment on above: Performed By: #### M 100.2200 #### [facility] [address] [place], [address] Sodium [Moles/Vol] 140 mmol/L Normal 136-145 [facility] Comment on above: Performed By: #### M 100.2200 #### [facility] [address] [place], [address] T PROT 8.0 g/dL Normal 6.4-8.2 [facility] Comment on above: Performed By: #### M 100.2200 #### [facility] [address] [place], [address] Urea nitrogen [Mass/Vol] 12 mg/dL Normal 7-18 [facility] Comment on above: Performed By: #### M 100.2200 #### [facility] [address] [place], [address] Erythrocyte Sed Rateon 12-11 SED RATE 12 mm/hr Normal 0-30 [facility] Comment on above: Performed By: #### M 100.2200 #### [facility] [address] [place], [address] Free T3on 12-12-2023 Free T3 [Mass/Vol] 2.2 pg/mL Normal 2.18-3.98 [facility] Comment on above: Performed By: #### M 100.2200 #### [facility] [address] [place], [address] Rheumatoid Factoron 12-12-19 24 RHEUMATOID FAC < 10.0 Normal <15 [facility] Comment on above: Performed By: #### L 501.9520, L500.4050, L100.0100 #### [facility] [address] [place], [address] T4 Free Directon 12-12-2023 T4 FREE DIRECT 1.32 ng/dL Normal 0.76-1.46 [facility] Comment on above: Performed By: #### L [id number], L500.4050, L100.0100 #### [facility] [address] [place], [address] Thyroid Stim Hormone (TSH)on 12-12-2023 TSH 1.710 uIU/mL Normal 0.358-3.740 [facility] Comment on above: Performed By: #### M 100.2200 #### [facility] [address] [place], [address] Vitamin D,25 Hydroxyon 12-11 Vitamin D 25-OH 29.4 ng/mL Normal [facility] Comment on above: Result Comment: Ana min D 25(OH) Status Range Deficiency <20 ng/mL (50nmol/L) Insufficiency 20 - 30 ng/mL (50 - 75 nmol/L) Sufficiency 30 - 100 ng/mL (75 - 250 nmol/L) Toxicity >100 ng/mL (>250 nmol/L) Performed By: #### M 100.2200 #### [facility] [address] [place], [address] Absolute lymphocyte countOrd ered By: Vernon Osman on 05-21-2023 Lymphocytes Auto (Unsp spec) [#/Vol] 1.08 10*3/uL 0.83-4.51 [facility] Automated lymphocyte count a s percentage of total leukocytesOrdered By: Vernon Osman on 05-21-2023 Lymphocytes/100 WBC Auto (Unsp spec) 8.5 % 19-41 [facility] Basophil percentageOrdered B y: Vernon Osman on 05-21-2023 Basophils/100 WBC (Bld) 0.6 % 0-1 [facility] Chloride [Moles/Vol] 112 mmol/L 98-107 [facility] Eosinophils/100 WBC (Bld) 2.0 % 0-5 [facility] Glucose [Mass/Vol] 136 mg/dL 74-106 [facility] Comment on above: Fasting Glucose resu lt greater than or equal to 126 mg/dL suggests DIABETES MELLITUS per A.D.A. criteria. Hemoglobin (Bld) [Mass/Vol] 10.3 g/dL 12.0-15.0 [facility] Monocytes/100 WBC (Bld) 9.4 % 0-10 [facility] Neutrophils (Bld) [#/Vol] 10.0 10*3/uL 2.0-7.7 [facility] Neutrophils/100 WBC (Bld) 79.0 % 47-70 [facility] Potassium [Moles/Vol] 3.4 mmol/L 3.5-5.1 [facility] Sodium [Moles/Vol] 142 mmol/L 136-145 [facility] WBC (Bld) [#/Vol] 12.7 10*3/uL 4.4-11.0 [facility] Determination of erythrocyte mean corpuscular volume (MCV)Ordered By: Vernon Osman on 05-21-2023 MCV (RBC) [Entitic vol] 99.1 fL 81-99 [facility] Erythrocyte distribution wid th ratioOrdered By: Vernon Osman on 05-21-2023 Erythrocyte distribution width (RBC) [Ratio] 15.1 % 11.6-14.6 [facility] Erythrocyte distribution wid th standard deviationOrdered By: Vernon Osman on 05-21-2023 Erythrocyte distribution width (RBC) [Entitic vol] 54.6 fL 35.1-43.9 [facility] Hematocrit Auto (Bld) [Volum e fraction]Ordered By: Vernon Osman on 05-21-2023 Hematocrit (Bld) [Volume fraction] 32.2 % 37-47 [facility] Immature granulocytes/100 WB C Auto (Bld)Ordered By: Vernon Osman on 05-21-2023 Immature granulocytes/100 WBC (Bld) 0.500 % 0.0-0.9 [facility] Comment on above: IG% - Immature Granu locytes (promyelocytes, myelocytes and metamyelocytes) > 1% indicates that a LEFT SHIFT is Present. Laboratory - Chemistry and C hemistry - challengeOrdered By: Vernon Osman on 05-21-2023 CO2 [Moles/Vol] 25.0 mmol/L 21.0-32.0 [facility] Urea nitrogen/Creatinine [Mass ratio] 9.1 mg/mg 10-20 [facility] - Hematology and Cell countsOrdered By: Vernon Osman on 05-21-2023 MCH (RBC) [Entitic mass] 31.7 pg 27.0-32.0 [facility] MCHC (RBC) [Mass/Vol] 32.0 g/dL 32-36 [facility] Nucleated RBC/100 WBC (Bld) [Ratio] 0 % 0-5 [facility] Platelets (Bld) [#/Vol] 218 10*3/uL 150-450 [facility] No Panel InformationOrdered By: Vernon Osman on 05-21-2023 Estimated Creatinine Clearance Calc 61.89 ml/min [facility] Estimated GFR (MDRD) Amer 94 mL/min >60 [facility] Comment on above: GFR Calc Estimated GFR (MDRD) Non-Af Amer 78 mL/min >60 [facility] Comment on above: Non- GFR Calc Platelet mean volume Cayden-Ec ker (Bld) [Entitic vol]Ordered By: Vernon Osman on 05-21-2023 Platelet mean volume (Bld) [Entitic vol] 11.8 fL 6.2-12.0 [facility] RBC Auto (Bld) [#/Vol]Ordere d By: Vernon Osman on 05-21-2023 RBC (Bld) [#/Vol] 3.25 10*6/uL 4.2-5.4 [facility] Serum or plasma calcium rajni urement (mass/volume)Ordered By: Vernon Osman on 05-21-2023 Calcium [Mass/Vol] 8.0 mg/dL 8.5-10.1 [facility] Serum or plasma creatinine m easurement (mass/volume)Ordered By: Vernon Osman on 05-21-2023 Creatinine [Mass/Vol] 0.77 mg/dL 0.55-1.02 [facility] Comment on above: The validity of the calculated GFR & GFRAA in patients over 70 years has not been determined. Clinical correlation is essential. Serum or plasma urea nitroge n measurement (mass/volume)Ordered By: Vernon Osman on 05-21-2023 Urea nitrogen [Mass/Vol] 7 mg/dL 7-18 [facility] Thin prep Papanicolaou smear with manual screeningOrdered By: Vernon Osman on 05-21-2023 Thin prep Papanicolaou smear with manual screening 5 5-15 [facility] Basophil percentageOrdered B y: Vernon Osman on 05-20-2023 Basophil percentage 3.2 mg/dL 2.5-4.9 [facility] Blood manual differential co mment interpretation (narrative result)Ordered By: Vernon Osman on 05-20-2023 Manual differential comment Donnie (Bld) [Interp] SCANNED [facility] Comment on above: MONOCYTOSIS PRESENT Laboratory - Chemistry and C hemistry - challengeOrdered By: Vernon Osman on 05-20-2023 Magnesium [Mass/Vol] 2.2 mg/dL 1.6-2.6 [facility] Review by pathologistOrdered By: Vernon Osman on 05-20-2023 Pathologist review Donnie (Unsp spec) [Interp] Reviewed [facility] Comment on above: Previous reported re sult: Nohelia mcdowell Edited by: RGOOD on 05/20/23:1306Neutrophilic leukocytosis.Macrocytic anemia.Clinical correlation necessary.Greg Guerin M.D. 05/20/23 AMENDED REPORT 05/20/23 1306 PATH REV previously reported as: Nohelia mcdowell Basophil percentageOrdered B y: Aggie White on 05-19-2023 Bilirubin [Mass/Vol] 0.70 mg/dL 0.20-1.00 [facility] Comment on above: For patients on eltr ombopag therapy, use of Dimension [place] TBIL is not recommended. Protein [Mass/Vol] 6.4 g/dL 6.4-8.2 [facility] Basophil percentageOrdered B y: Jorge Cardona on 05-19-2023 Basophil percentage < 10.0 ug/mL 10.0-30.0 [facility] Culture, urineOrdered By: Sonja Cardona on 05-19-2023 Bacteria identified Cx Nom (U) Presumptive E. coli [facility] - Chemistry and C hemistry - challengeOrdered By: Aggie Bolton on 05-19-2023 Albumin/Globulin [Mass ratio] 0.7 {ratio} 0.9-2.4 [facility] ALP [Catalytic activity/Vol] 94 U/L 45-117 [facility] ALT [Catalytic activity/Vol] 15 U/L 13-56 [facility] Globulin (S) [Mass/Vol] 3.8 g/dL 2.2-4.2 [facility] No Panel InformationOrdered By: Jorge Cardona on 05-19-2023 Ethyl Alcohol Level < 3.0 mg/dL [facility] Comment on above: The serum:whole bloo d ethanol ratio is approximately 1.14and varies slightly with hematocrit. Medical Alcohol reference interval and critical value innon-tolerant individuals; 50 - 100 Impairment 100 Intoxication 100 - 250 Severe Poisoning 250 - 400 Deep/possible fatal coma No Panel InformationOrdered By: Aggie Bolton on 05-19-2023 Streptococcus pneumoniae Antigen (M [facility] Thin prep Papanicolaou smear with manual screeningOrdered By: Aggie Bolton on 05-19-2023 Thin prep Papanicolaou smear with manual screening 2.6 g/dL 3.2-5.0 [facility] Thin prep Papanicolaou smear with manual screening 19 U/L 15-37 [facility] Urine Legionella pneumophila antigen detectionOrdered By: Aggie Bolton on 05-19-2023 L. pneumophila Ag Ql (U) [facility] Absolute lymphocyte countOrd ered By: Jorge Cardona on 05-18-2023 Lymphocytes Auto (Unsp spec) [#/Vol] 0.96 10*3/uL 0.83-4.51 [facility] Activated partial thrombopla stin time (aPTT) in platelet poor plasma by coagulation aOrdered By: Jorge Cardona on 05-18-2023 aPTT Coag (PPP) [Time] 30.3 s 24.1-36.2 [facility] Automated lymphocyte count a s percentage of total leukocytesOrdered By: Jorge Cardona on 05-18-2023 Lymphocytes/100 WBC Auto (Unsp spec) 6.3 % 19-41 [facility] Basophil percentageOrdered B y: Jorge Cardona on 05-18-2023 Basophil percentage >100 SEEN /hpf 0-5 [facility] Basophils/100 WBC (Bld) 0.5 % 0-1 [facility] Bilirubin [Mass/Vol] 1.40 mg/dL 0.20-1.00 [facility] Comment on above: For patients on eltr ombopag therapy, use of Dimension [place] TBIL is not recommended. Chloride [Moles/Vol] 109 mmol/L 98-107 [facility] Eosinophils/100 WBC (Bld) 0.3 % 0-5 [facility] Glucose [Mass/Vol] 134 mg/dL 74-106 [facility] Comment on above: Fasting Glucose resu lt greater than or equal to 126 mg/dL suggests DIABETES MELLITUS per A.D.A. criteria. Hemoglobin (Bld) [Mass/Vol] 11.9 g/dL 12.0-15.0 [facility] Lactate [Moles/Vol] 1.7 mmol/L 0.4-2.0 [facility] Monocytes/100 WBC (Bld) 2.4 % 0-10 [facility] Neutrophils (Bld) [#/Vol] 13.7 10*3/uL 2.0-7.7 [facility] Neutrophils/100 WBC (Bld) 89.8 % 47-70 [facility] Potassium [Moles/Vol] 3.8 mmol/L 3.5-5.1 [facility] Comment on above: Slight Hemolysis, Re sult may be falsely increased. Protein [Mass/Vol] 7.5 g/dL 6.4-8.2 [facility] Sodium [Moles/Vol] 139 mmol/L 136-145 [facility] WBC (Bld) [#/Vol] 15.2 10*3/uL 4.4-11.0 [facility] Bilirubin Test strip Ql (U)O rdered By: Jorge Cardona on 05-18-2023 Bilirubin Ql (U) Negative Negative [facility] Determination of erythrocyte mean corpuscular volume (MCV)Ordered By: Jorge Cardona on 05-18-2023 MCV (RBC) [Entitic vol] 97.9 fL 81-99 [facility] Erythrocyte distribution wid th ratioOrdered By: Jorge Cardona on 05-18-2023 Erythrocyte distribution width (RBC) [Ratio] 15.1 % 11.6-14.6 [facility] Erythrocyte distribution wid th standard deviationOrdered By: Jorgemel Cardona on 05-18-2023 Erythrocyte distribution width (RBC) [Entitic vol] 54.4 fL 35.1-43.9 [facility] Hematocrit Auto (Bld) [Volum e fraction]Ordered By: Jorge Cardona on 05-18-2023 Hematocrit (Bld) [Volume fraction] 36.7 % 37-47 [facility] Immature granulocytes/100 WB C Auto (Bld)Ordered By: Jorgemel Cardona on 05-18-2023 Immature granulocytes/100 WBC (Bld) 0.700 % 0.0-0.9 [facility] Comment on above: IG% - Immature Granu locytes (promyelocytes, myelocytes and metamyelocytes) > 1% indicates that a LEFT SHIFT is Present. International normalized rat io (INR) calculationOrdered By: Jorge Cardona on 05-18-2023 INR Coag (PPP) [Relative time] 1.3 {INR} [facility] Ketones Test strip Ql (U)Ord ered By: Jorge Cardona on 05-18-2023 Ketones Ql (U) 5 mg/dl Negative [facility] - Chemistry and C hemistry - challengeOrdered By: Jorgemel Cardona on 05-18-2023 Albumin/Globulin [Mass ratio] 0.7 {ratio} 0.9-2.4 [facility] ALP [Catalytic activity/Vol] 116 U/L 45-117 [facility] ALT [Catalytic activity/Vol] 17 U/L 13-56 [facility] CO2 [Moles/Vol] 24.0 mmol/L 21.0-32.0 [facility] Globulin (S) [Mass/Vol] 4.3 g/dL 2.2-4.2 [facility] Urea nitrogen/Creatinine [Mass ratio] 18.9 mg/mg 10-20 [facility] - CoagulationOrde red By: Jorge Cardona on 05-18-2023 PT Coag (PPP) [Time] 16.0 s 11.7-14.9 [facility] - Drug toxicology Ordered By: Jorge Cardona on 05-18-2023 Amphetamines Ql (U) Negative <1000 ng/mL [facility] Benzodiazepines Ql (U) Negative < 200 ng/mL [facility] Cannabinoids Screen Ql (U) Negative < 50 ng/mL [facility] Cocaine Ql (U) Negative < 300 ng/mL [facility] Opiates Ql (U) Positive < 300 ng/mL [facility] - Hematology and Cell countsOrdered By: Jorge Cardona on 05-18-2023 MCH (RBC) [Entitic mass] 31.7 pg 27.0-32.0 [facility] MCHC (RBC) [Mass/Vol] 32.4 g/dL 32-36 [facility] Nucleated RBC/100 WBC (Bld) [Ratio] 0 % 0-5 [facility] Platelets (Bld) [#/Vol] 199 10*3/uL 150-450 [facility] - Microbiology an d Antimicrobial susceptibilityOrdered By: Jorge Cardona on 05-18-2023 Bacteria identified Cx Nom (Bld) Escherichia coli [facility] SARS-CoV-2 (COVID-19) RNA LEONA+probe Ql (Unsp spec) [facility] Bacteria identified Cx Nom (Bld) No growth in 5 days. [facility] SARS-CoV-2 (COVID-19) RNA LEONA+probe Ql (Unsp spec) [facility] Mucus LM Ql (Urine sed)Order ed By: Jorge Cardona on 05-18-2023 Mucus Ql (Urine sed) 0 SEEN /hpf [facility] Nitrite Test strip Ql (U)Ord ered By: Jorge Cardona on 05-18-2023 Nitrite Ql (U) Positive Negative [facility] No Panel InformationOrdered By: Jorge Cardona on 05-18-2023 Estimated Creatinine Clearance Calc 40.12 ml/min [facility] Estimated GFR (MDRD) Amer 55 mL/min >60 [facility] Comment on above: GFR Calc Estimated GFR (MDRD) Non-Af Amer 46 mL/min >60 [facility] Comment on above: Non- GFR Calc MDMA (Ecstasy) Screen Negative < 500 ng/mL [facility] Urine Barbiturates Screen Negative < 200 ng/mL [facility] Urine Drug Screen Comment [facility] Comment on above: CONFIRMATORY TESTING FOR [...] Methadone Screen Negative < 300 ng/mL [facility] Urine RBC 10-25 SEEN /hpf 0-5 [facility] Platelet mean volume [place]-Ec ker (Bld) [Entitic vol]Ordered By: Jorge Cardona on 05-18-2023 Platelet mean volume (Bld) [Entitic vol] 12.5 fL 6.2-12.0 [facility] Protein Test strip Ql (U)Ord ered By: Jorge Cardona on 05-18-2023 Protein Ql (U) 100 mg/dl Negative [facility] RBC Auto (Bld) [#/Vol]Ordere d By: Jorge Cardona on 05-18-2023 RBC (Bld) [#/Vol] 3.75 10*6/uL 4.2-5.4 [facility] Serum or plasma calcium rajni urement (mass/volume)Ordered By: Jorge Cardona on 05-18-2023 Calcium [Mass/Vol] 8.6 mg/dL 8.5-10.1 [facility] Serum or plasma creatinine m easurement (mass/volume)Ordered By: Jorge Cardona on 05-18-2023 Creatinine [Mass/Vol] 1.22 mg/dL 0.55-1.02 [facility] Comment on above: The validity of the calculated GFR & GFRAA in patients over 70 years has not been determined. Clinical correlation is essential. Serum or plasma urea nitroge n measurement (mass/volume)Ordered By: Jorge Cardona on 05-18-2023 Urea nitrogen [Mass/Vol] 23 mg/dL 7-18 [facility] Squamous epithelial cells de tection in urine sediment by light microscopyOrdered By: Jorge Cardona on 05-18-2023 Epithelial cells.squamous LM Ql (Urine sed) 0 SEEN /hpf 5-10 [facility] Thin prep Papanicolaou smear with manual screeningOrdered By: Jorge Cardona on 05-18-2023 Thin prep Papanicolaou smear with manual screening 3.2 g/dL 3.2-5.0 [facility] Thin prep Papanicolaou smear with manual screening 22 U/L 15-37 [facility] Comment on above: Slight Hemolysis, Re sult may be falsely increased. Thin prep Papanicolaou smear with manual screening 6 5-15 [facility] Urine blood detectionOrdered By: Jorge Cardona on 05-18-2023 RBC Ql (U) 50 /ul Negative [facility] Urine clarityOrdered By: Jorge Cardona on 05-18-2023 Clarity (U) Cloudy Clear [facility] Urine color determinationOrd ered By: Jorge Cardona on 05-18-2023 Color (U) Yellow Yellow [facility] Urine glucose detectionOrder ed By: Jorge Cardona on 05-18-2023 Glucose Ql (U) Normal mg/dl Normal [facility] Urine leukocyte esterase det ection by dipstickOrdered By: Jorge Cardona on 05-18-2023 Leukocyte esterase Test strip Ql (U) 500 /ul Negative [facility] Urine pHOrdered By: Jorge nguyen on 05-18-2023 pH (U) 6.0 [pH] 5.0 - 8.0 [facility] Urine phencyclidine (PCP) de tectionOrdered By: Jorge Cardona on 05-18-2023 Phencyclidine Ql (U) Negative < 25 ng/mL [facility] Urine sediment bacteria coun t by microscopy (number/high power field)Ordered By: Jorge Cardona on 05-18-2023 Bacteria LM.HPF (Urine sed) [#/Area] 0 /[HPF] None Seen [facility] specific gravity measu rementOrdered By: Jorgemel Cardona on 05-18-2023 Specific gravity (U) [Rel density] 1.010 1.002-1.030 [facility] Urine urobilinogen measureme ntOrdered By: Jorgemel Cardona on 05-18-2023 Urobilinogen Ql (U) Normal mg/dl Normal [facility] Absolute lymphocyte countOrd ered By: Bandar Chanel on 11-23-2022 Lymphocytes Auto (Unsp spec) [#/Vol] 0.58 10*3/uL 0.83-4.51 [facility] Basophil percentageOrdered B y: Bandar Chanel on 11-23-2022 Basophils/100 WBC (Bld) 0.5 % 0-1 [facility] Chloride [Moles/Vol] 102 mmol/L 98-107 [facility] Eosinophils/100 WBC (Bld) 0.0 % 0-5 [facility] Glucose [Mass/Vol] 192 mg/dL 74-106 [facility] Comment on above: Fasting Glucose resu lt greater than or equal to 126 mg/dL suggests DIABETES MELLITUS per A.D.A. criteria. Neutrophils (Bld) [#/Vol] 6.0 10*3/uL 2.0-7.7 [facility] Neutrophils/100 WBC (Bld) 89.4 % 47-70 [facility] Potassium [Moles/Vol] 3.3 mmol/L 3.5-5.1 [facility] Sodium [Moles/Vol] 134 mmol/L 136-145 [facility] WBC (Bld) [#/Vol] 6.7 10*3/uL 4.4-11.0 [facility] Blood erythrocytes count (nu mber/volume)Ordered By: Bandar Chanel on 11-23-2022 RBC (Bld) [#/Vol] 4.22 10*6/uL 4.2-5.4 [facility] Blood hemoglobin measurement (mass/volume)Ordered By: Bandar Chanel on 11-23-2022 Hemoglobin (Bld) [Mass/Vol] 12.0 g/dL 12.0-15.0 [facility] Blood lymphocytes/100 leukoc ytesOrdered By: Bandar Chanel on 11-23-2022 Lymphocytes/100 WBC (Bld) 8.7 % 19-41 [facility] Blood manual differential co mment interpretation (narrative result)Ordered By: Bandar Chanel on 11-23-2022 Manual differential comment Donnie (Bld) [Interp] SCANNED [facility] Comment on above: LYMPHOPENIA PRESENT Blood monocytes/100 leukocyt esOrdered By: Bandar Chanel on 11-23-2022 Monocytes/100 WBC (Bld) 1.1 % 0-10 [facility] Blood platelet mean volumeOr dered By: Bandar Chanel on 11-23-2022 Platelet mean volume (Bld) [Entitic vol] 12.1 fL 6.2-12.0 [facility] CNPNon 11-23-2022 [facility] Telephone ([facility]) AIDEN FIELDS ([id number]) 1945 F Date Time Provider Department 11/23/22 W[facility] GALLEGOS [facility] During your visit today, we recorded the [...] Comments: rapid heart beat/gets real excitable NEOSPORIN ([id number] *08/14/2006 Comments: contact dermatitis post op Date Reviewed: 11/22/2022 Reviewed by: Eliel Blount APRN.SNAILER - Fully Assessed Reason for Visit: Results [...] [F41.1] 05/24/2015 (more content not included)... Normal [facility] Determination of erythrocyte mean corpuscular volume (MCV)Ordered By: Badnar Chanel on 11-23-2022 MCV (RBC) [Entitic vol] 90.0 fL 81-99 [facility] Hematocrit Auto (Bld) [Volum e fraction]Ordered By: Bandar Chanel on 11-23-2022 Hematocrit (Bld) [Volume fraction] 38.0 % 37-47 [facility] - Chemistry and C hemistry - challengeOrdered By: Bandar Chanel on 11-23-2022 CO2 [Moles/Vol] 26.0 mmol/L 21.0-32.0 [facility] Free T4 [Mass/Vol] 1.40 ng/dL 0.76-1.46 [facility] Urea nitrogen/Creatinine [Mass ratio] 22.8 mg/mg 10-20 [facility] - Hematology and Cell countsOrdered By: Bandar Chanel on 11-23-2022 Erythrocyte distribution width (RBC) [Entitic vol] 54.4 fL 35.1-43.9 [facility] Erythrocyte distribution width (RBC) [Ratio] 16.4 % 11.6-14.6 [facility] Immature granulocytes/100 WBC (Bld) 0.300 % 0.0-0.9 [facility] Comment on above: IG% - Immature Granu locytes (promyelocytes, myelocytes and metamyelocytes) > 1% indicates that a LEFT SHIFT is Present. MCH (RBC) [Entitic mass] 28.4 pg 27.0-32.0 [facility] Nucleated RBC/100 WBC (Bld) [Ratio] 0 % 0-5 [facility] MCHC Auto (RBC) [Mass/Vol]Or dered By: Bandar Chanel on 11-23-2022 MCHC (RBC) [Mass/Vol] 31.6 g/dL 32-36 [facility] No Panel InformationOrdered By: Bandar Chanel on 11-23-2022 Estimated Creatinine Clearance Calc 44.80 ml/min [facility] Estimated GFR (MDRD) Amer 133 mL/min >60 [facility] Comment on above: GFR Calc Estimated GFR (MDRD) Non-Af Amer 110 mL/min >60 [facility] Comment on above: Non- GFR Calc Thyroid Stimulating Hormone (TSH) 0.24 uIU/mL 0.358-3.74 [facility] Platelets bldOrdered By: Anthony Chanel on 11-23-2022 Platelets (Bld) [#/Vol] 281 10*3/uL 150-450 [facility] Serum or plasma calcium rajni urement (mass/volume)Ordered By: Bandar Chanel on 11-23-2022 Calcium [Mass/Vol] 8.1 mg/dL 8.5-10.1 [facility] Serum or plasma creatinine m easurement (mass/volume)Ordered By: Bandar Chanel on 11-23-2022 Creatinine [Mass/Vol] 0.57 mg/dL 0.55-1.02 [facility] Comment on above: The validity of the calculated GFR & GFRAA in patients over 70 years has not been determined. Clinical correlation is essential. Serum or plasma urea nitroge n measurement (mass/volume)Ordered By: Bandar Chanel on 11-23-2022 Urea nitrogen [Mass/Vol] 13 mg/dL 7-18 [facility] Thin prep Papanicolaou smear with manual screeningOrdered By: Bandar Chanel on 11-23-2022 Thin prep Papanicolaou smear with manual screening 6 5-15 [facility] Absolute lymphocyte countOrd ered By: Katie Randle on 11-22-2022 Lymphocytes Auto (Unsp spec) [#/Vol] 1.44 10*3/uL 0.83-4.51 [facility] Basophil percentageOrdered B y: Katie Randle on 11-22-2022 Basophils/100 WBC (Bld) 0.7 % 0-1 [facility] Chloride [Moles/Vol] 102 mmol/L 98-107 [facility] Eosinophils/100 WBC (Bld) 6.7 % 0-5 [facility] Glucose [Mass/Vol] 82 mg/dL 74-106 [facility] Neutrophils (Bld) [#/Vol] 6.1 10*3/uL 2.0-7.7 [facility] Neutrophils/100 WBC (Bld) 64.5 % 47-70 [facility] Potassium [Moles/Vol] 4.1 mmol/L 3.5-5.1 [facility] Sodium [Moles/Vol] 137 mmol/L 136-145 [facility] WBC (Bld) [#/Vol] 9.4 10*3/uL 4.4-11.0 [facility] Blood erythrocytes count (nu mber/volume)Ordered By: Katie Randle on 11-22-2022 RBC (Bld) [#/Vol] 3.81 10*6/uL 4.2-5.4 [facility] Blood hemoglobin measurement (mass/volume)Ordered By: Katie Randle on 11-22-2022 Hemoglobin (Bld) [Mass/Vol] 11.0 g/dL 12.0-15.0 [facility] Blood lymphocytes/100 leukoc ytesOrdered By: Katie Randle on 11-22-2022 Lymphocytes/100 WBC (Bld) 15.4 % 19-41 [facility] Blood monocytes/100 leukocyt esOrdered By: Katie Randle on 11-22-2022 Monocytes/100 WBC (Bld) 12.3 % 0-10 [facility] Blood platelet mean volumeOr dered By: Katie Randle on 11-22-2022 Platelet mean volume (Bld) [Entitic vol] 11.8 fL 6.2-12.0 [facility] CNOVon 11-22-2022 CNOV Office Visit (UCTR ) AIDEN FIELDS ([id number]) 1945 F Date Time Provider Department 11/22/22 11:45 AM ELIEL BLOUNT [facility] During your visit today, we recorded the following information about you: Temperature Pulse Respiration Blood pressure 99.6 degrees 85/minute 18/minute 110/64 Weight 68 kg Eliel Blount, RIO.SNAILER 11/22/2022 12:42 PM Signed Subjective HPI Nontoxic-appearing [...] - Alkylamine, Benadryl [Diphenhydramine Hcl], and Neosporin [Gitpmgdy-Ouakdbcgst-Hj lymyxin] MEDICATIONS oxyCODONE IR (ROXICODONE) 5 mg [...] and azam (more content not included)... Normal [facility] COVID-19 virus antigen assay Ordered By: Katie Randle on 11-22-2022 SARS-CoV-2 (COVID-19) Ag IA.rapid Ql (Resp) [facility] Determination of erythrocyte mean corpuscular volume (MCV)Ordered By: Katie Randle on 11-22-2022 MCV (RBC) [Entitic vol] 92.1 fL 81-99 [facility] Hematocrit Auto (Bld) [Volum e fraction]Ordered By: Katie Randle on 11-22-2022 Hematocrit (Bld) [Volume fraction] 35.1 % 37-47 [facility] - Chemistry and C hemistry - challengeOrdered By: Katie Randle on 11-22-2022 CO2 [Moles/Vol] 32.0 mmol/L 21.0-32.0 [facility] Natriuretic peptide B (Bld) [Mass/Vol] 198.9 pg/mL 0-100 [facility] Urea nitrogen/Creatinine [Mass ratio] 27.9 mg/mg 10-20 [facility] - Hematology and Cell countsOrdered By: Katie Randle on 11-22-2022 Erythrocyte distribution width (RBC) [Entitic vol] 56.1 fL 35.1-43.9 [facility] Erythrocyte distribution width (RBC) [Ratio] 16.7 % 11.6-14.6 [facility] Immature granulocytes/100 WBC (Bld) 0.400 % 0.0-0.9 [facility] Comment on above: IG% - Immature Granu locytes (promyelocytes, myelocytes and metamyelocytes) > 1% indicates that a LEFT SHIFT is Present. MCH (RBC) [Entitic mass] 28.9 pg 27.0-32.0 [facility] Nucleated RBC/100 WBC (Bld) [Ratio] 0 % 0-5 [facility] MCHC Auto (RBC) [Mass/Vol]Or dered By: Katie Randle on 11-22-2022 MCHC (RBC) [Mass/Vol] 31.3 g/dL 32-36 [facility] No Panel InformationOrdered By: Katie Randle on 11-22-2022 Estimated Creatinine Clearance Calc 44.80 ml/min [facility] Estimated GFR (MDRD) Amer 132 mL/min >60 [facility] Comment on above: GFR Calc Estimated GFR (MDRD) Non-Af Amer 109 mL/min >60 [facility] Comment on above: Non- GFR Calc Troponin I High Sensitivity 7 pg/mL 3.0-54.0 [facility] Comment on above: Please Note: New [place] t Units and Gender Specific Reference Ranges. For more information see Policy Stat Procedure [place] High Sensitivity Troponin (TNIH) and attachments. Platelets bldOrdered By: Amy Randle on 11-22-2022 Platelets (Bld) [#/Vol] 247 10*3/uL 150-450 [facility] Respiratory pathogens DNA an d RNA panel LEONA+probe (Resp)Ordered By: Bandar Chanel on 11-22-2022 Respiratory Panel (PCR) Rhinovirus [facility] SARS-CoV-2 RNA Resp Ql LEONA+p robeon 11-22-2022 SARS-CoV-2 (COVID-19) RNA LEONA+probe Ql (Resp) COVID 19 RESULT: Not detected The method used is RT-PCR or an equivalent NAAT method. Reference Range (the expected result in uninfected individuals): Not detected Normal [facility] Comment on above: Performed By: #### [id number] #### [facility] CLIA [id number] [address] [place] [address] [place] Serum or plasma calcium rajni urement (mass/volume)Ordered By: Katie Randle on 11-22-2022 Calcium [Mass/Vol] 8.3 mg/dL 8.5-10.1 [facility] Serum or plasma creatinine m easurement (mass/volume)Ordered By: Katie Randle on 11-22-2022 Creatinine [Mass/Vol] 0.57 mg/dL 0.55-1.02 [facility] Comment on above: The validity of the calculated GFR & GFRAA in patients over 70 years has not been determined. Clinical correlation is essential. Serum or plasma urea nitroge n measurement (mass/volume)Ordered By: Katie Randle on 11-22-2022 Urea nitrogen [Mass/Vol] 16 mg/dL 7-18 [facility] Thin prep Papanicolaou smear with manual screeningOrdered By: Katie Randle on 11-22-2022 Thin prep Papanicolaou smear with manual screening 3 5-15 [facility] XR CHEST 2V FRONTAL/LATon XR CHEST [...] thoracolumbar junction. IMPRESSION: No acute cardiopulmonary process. Bender Machine: [id number] Transcribe Date/Time: Nov 22 2022 12:17P Dictated by : SHEN ESQUIVEL MD This examination was interpreted and the report reviewed and electronically signed by: SHEN ESQUIVEL MD on Nov 22 2022 12:20PM EST [id number] Normal [facility] XR Chest PA and Lateralon IMPRESSION: No acute cardiopulmonary process. Bender Machine: [facility] Transcribe Date/Time: Nov 22 2022 12:17P [...] the thoracolumbar junction. DIVISION OF RADIOLOGY Provider, [facility] Isidro [facility] - 11/22/2022 * * *Final Report* * [...] junction. IMPRESSION IMPRESSION: No acute cardiopulmonary process. Bender Machine: [facility] Transcribe Date/Time: Nov 22 2022 12:17P Dictated by : SHEN ESQUIVEL MD This examination was interpreted and the report reviewed and electronically signed by: SHEN ESQUIVEL MD on Nov 22 2022 12:20PM EST [facility] Radiology Study observation (narrative) Lakisha mckenna [facility] XR Chest PA and LateralOrder ed By: [facility] Provider on 11-22-2022 [facility] - Chemistry and C hemistry - challengeOrdered By: Erica Richardson on 11-14-2022 Free T4 [Mass/Vol] 1.35 ng/dL 0.76-1.46 [facility] No Panel InformationOrdered By: Erica Richardson on 11-14-2022 Free Triiodothyronine (T3) pg/dL 2.2 pg/mL 2.18-3.98 [facility] Thyroid Stimulating Hormone (TSH) 0.75 uIU/mL 0.358-3.74 [facility] Absolute lymphocyte countOrd ered By: Dr. Richardson on 09-13-2022 Lymphocytes Auto (Unsp spec) [#/Vol] 1.36 10*3/uL 0.83-4.51 [facility] Basophil percentageOrdered B y: Dr. Richardson on 09-13-2022 Basophils/100 WBC (Bld) 1.0 % 0-1 [facility] Bilirubin [Mass/Vol] 0.50 mg/dL 0.20-1.00 [facility] Comment on above: For patients on eltr ombopag therapy, use of Dimension [place] TBIL is not recommended. Chloride [Moles/Vol] 101 mmol/L 98-107 [facility] Eosinophils/100 WBC (Bld) 5.7 % 0-5 [facility] Glucose [Mass/Vol] 94 mg/dL 74-106 [facility] Neutrophils (Bld) [#/Vol] 7.2 10*3/uL 2.0-7.7 [facility] Neutrophils/100 WBC (Bld) 70.2 % 47-70 [facility] Potassium [Moles/Vol] 4.4 mmol/L 3.5-5.1 [facility] Protein [Mass/Vol] 8.0 g/dL 6.4-8.2 [facility] Sodium [Moles/Vol] 137 mmol/L 136-145 [facility] WBC (Bld) [#/Vol] 10.3 10*3/uL 4.4-11.0 [facility] Blood erythrocytes count (nu mber/volume)Ordered By: Dr. Richardson on 09-13-2022 RBC (Bld) [#/Vol] 3.92 10*6/uL 4.2-5.4 [facility] Blood hemoglobin measurement (mass/volume)Ordered By: Dr. Richardson on 09-13-2022 Hemoglobin (Bld) [Mass/Vol] 12.5 g/dL 12.0-15.0 [facility] Blood lymphocytes/100 leukoc ytesOrdered By: Dr. Richardson on 09-13-2022 Lymphocytes/100 WBC (Bld) 13.2 % 19-41 [facility] Blood monocytes/100 leukocyt esOrdered By: Dr. Richardson on 09-13-2022 Monocytes/100 WBC (Bld) 9.5 % 0-10 [facility] Blood platelet mean volumeOr dered By: Dr. Richardson on 09-13-2022 Platelet mean volume (Bld) [Entitic vol] 11.6 fL 6.2-12.0 [facility] Determination of erythrocyte mean corpuscular volume (MCV)Ordered By: Dr. Richardson on 09-13-2022 MCV (RBC) [Entitic vol] 100.5 fL 81-99 [facility] Hematocrit Auto (Bld) [Volum e fraction]Ordered By: Dr. Richardson on 09-13-2022 Hematocrit (Bld) [Volume fraction] 39.4 % 37-47 [facility] - Chemistry and C hemistry - challengeOrdered By: Dr. Richardson on 09-13-2022 ALP [Catalytic activity/Vol] 136 U/L 45-117 [facility] ALT [Catalytic activity/Vol] 23 U/L 13-56 [facility] CO2 [Moles/Vol] 28.0 mmol/L 21.0-32.0 [facility] Free T4 [Mass/Vol] 1.06 ng/dL 0.76-1.46 [facility] Globulin (S) [Mass/Vol] 4.2 g/dL 2.2-4.2 [facility] Urea nitrogen/Creatinine [Mass ratio] 32.9 mg/mg 10-20 [facility] - Hematology and Cell countsOrdered By: Dr. Richardson on 09-13-2022 Erythrocyte distribution width (RBC) [Entitic vol] 48.6 fL 35.1-43.9 [facility] Erythrocyte distribution width (RBC) [Ratio] 13.1 % 11.6-14.6 [facility] Immature granulocytes/100 WBC (Bld) 0.400 % 0.0-0.9 [facility] Comment on above: IG% - Immature Granu locytes (promyelocytes, myelocytes and metamyelocytes) > 1% indicates that a LEFT SHIFT is Present. MCH (RBC) [Entitic mass] 31.9 pg 27.0-32.0 [facility] Nucleated RBC/100 WBC (Bld) [Ratio] 0 % 0-5 [facility] MCHC Auto (RBC) [Mass/Vol]Or dered By: Dr. Richardson on 09-13-2022 MCHC (RBC) [Mass/Vol] 31.7 g/dL 32-36 [facility] No Panel InformationOrdered By: Dr. Richardson on 09-13-2022 Estimated GFR (MDRD) Amer 111 mL/min >60 [facility] Comment on above: GFR Calc Estimated GFR (MDRD) Non-Af Amer 91 mL/min >60 [facility] Comment on above: Non- GFR Calc Free Triiodothyronine (T3) pg/dL 1.4 pg/mL 2.18-3.98 [facility] Thyroid Stimulating Hormone (TSH) 6.44 uIU/mL 0.358-3.74 [facility] Platelets bldOrdered By: Dr. Richardson on 09-13-2022 Platelets (Bld) [#/Vol] 335 10*3/uL 150-450 [facility] Serum or plasma albumin rajni urement (mass/volume)Ordered By: Dr. Richardson on 09-13-2022 Albumin [Mass/Vol] 3.8 g/dL 3.2-5.0 [facility] Serum or plasma albumin/glob ulin mass ratioOrdered By: Dr. Richardson on 09-13-2022 Albumin/Globulin [Mass ratio] 0.9 {ratio} 0.9-2.4 [facility] Serum or plasma calcium rajni urement (mass/volume)Ordered By: Dr. Richardson on 09-13-2022 Calcium [Mass/Vol] 8.3 mg/dL 8.5-10.1 [facility] Serum or plasma creatinine m easurement (mass/volume)Ordered By: Dr. Richardson on 09-13-2022 Creatinine [Mass/Vol] 0.67 mg/dL 0.55-1.02 [facility] Comment on above: The validity of the calculated GFR & GFRAA in patients over 70 years has not been determined. Clinical correlation is essential. Serum or plasma urea nitroge n measurement (mass/volume)Ordered By: Dr. Richardson on 09-13-2022 Urea nitrogen [Mass/Vol] 22 mg/dL 7-18 [facility] Serum or plasma uric acid me asurement (mass/volume)Ordered By: Dr. Richardson on 09-13-2022 Urate [Mass/Vol] 3.6 mg/dL 2.6-6.0 [facility] Comment on above: The drugs N-Acetylcy steine and Metamizole may falsely depress this assay. Thin prep Papanicolaou smear with manual screeningOrdered By: Dr. Richardson on 09-13-2022 Thin prep Papanicolaou smear with manual screening 20 U/L 15-37 [facility] Thin prep Papanicolaou smear with manual screening 8 5-15 [facility] Basophil percentageOrdered B y: Roberto Andre on 03-06-2022 Chloride [Moles/Vol] 102 mmol/L 98-107 [facility] Glucose [Mass/Vol] 90 mg/dL 74-106 [facility] Potassium [Moles/Vol] 4.0 mmol/L 3.5-5.1 [facility] Sodium [Moles/Vol] 137 mmol/L 136-145 [facility] WBC (Bld) [#/Vol] 5.7 10*3/uL 4.4-11.0 [facility] Blood erythrocytes count (nu mber/volume)Ordered By: Roberto Andre on 03-06-2022 RBC (Bld) [#/Vol] 4.05 10*6/uL 4.2-5.4 [facility] Blood hemoglobin measurement (mass/volume)Ordered By: Roberto Andre on 03-06-2022 Hemoglobin (Bld) [Mass/Vol] 12.0 g/dL 12.0-15.0 [facility] Blood platelet mean volumeOr dered By: Roberto Andre on 03-06-2022 Platelet mean volume (Bld) [Entitic vol] 12.7 fL 6.2-12.0 [facility] Determination of erythrocyte mean corpuscular volume (MCV)Ordered By: Roberto Andre on 03-06-2022 MCV (RBC) [Entitic vol] 91.9 fL 81-99 [facility] Hematocrit Auto (Bld) [Volum e fraction]Ordered By: Roberto Andre on 03-06-2022 Hematocrit (Bld) [Volume fraction] 37.2 % 37-47 [facility] - Chemistry and C hemistry - challengeOrdered By: Roberto Andre on 03-06-2022 CO2 [Moles/Vol] 28.0 mmol/L 21.0-32.0 [facility] Urea nitrogen/Creatinine [Mass ratio] 15.9 mg/mg 10-20 [facility] - Hematology and Cell countsOrdered By: Roberto Andre on 03-06-2022 Erythrocyte distribution width (RBC) [Entitic vol] 59.7 fL 35.1-43.9 [facility] Erythrocyte distribution width (RBC) [Ratio] 17.7 % 11.6-14.6 [facility] MCH (RBC) [Entitic mass] 29.6 pg 27.0-32.0 [facility] MCHC Auto (RBC) [Mass/Vol]Or dered By: Roberto Andre on 03-06-2022 MCHC (RBC) [Mass/Vol] 32.3 g/dL 32-36 [facility] No Panel InformationOrdered By: Roberto Andre on 03-06-2022 Estimated GFR (MDRD) Amer 134 mL/min >60 [facility] Comment on above: GFR Calc Estimated GFR (MDRD) Non-Af Amer 111 mL/min >60 [facility] Comment on above: Non- GFR Calc Platelets bldOrdered By: Wan Andre on 03-06-2022 Platelets (Bld) [#/Vol] 272 10*3/uL 150-450 [facility] Serum or plasma calcium rajni urement (mass/volume)Ordered By: Roberto Andre on 03-06-2022 Calcium [Mass/Vol] 9.0 mg/dL 8.5-10.1 [facility] Serum or plasma creatinine m easurement (mass/volume)Ordered By: Roberto Andre on 03-06-2022 Creatinine [Mass/Vol] 0.57 mg/dL 0.55-1.02 [facility] Comment on above: The validity of the calculated GFR & GFRAA in patients over 70 years has not been determined. Clinical correlation is essential. Serum or plasma urea nitroge n measurement (mass/volume)Ordered By: Roberto Andre on 03-06-2022 Urea nitrogen [Mass/Vol] 9 mg/dL 7-18 [facility] Thin prep Papanicolaou smear with manual screeningOrdered By: Roberto Andre on 03-06-2022 Thin prep Papanicolaou smear with manual screening 7 5-15 [facility] Basophil percentageOrdered B y: Roberto Andre on 02-27-2022 Chloride [Moles/Vol] 106 mmol/L 98-107 [facility] Glucose [Mass/Vol] 91 mg/dL 74-106 [facility] Potassium [Moles/Vol] 4.1 mmol/L 3.5-5.1 [facility] Sodium [Moles/Vol] 139 mmol/L 136-145 [facility] WBC (Bld) [#/Vol] 6.6 10*3/uL 4.4-11.0 [facility] Blood erythrocytes count (nu mber/volume)Ordered By: Roberto Andre on 02-27-2022 RBC (Bld) [#/Vol] 3.93 10*6/uL 4.2-5.4 [facility] Blood hemoglobin measurement (mass/volume)Ordered By: Roberto Andre on 02-27-2022 Hemoglobin (Bld) [Mass/Vol] 11.6 g/dL 12.0-15.0 [facility] Blood platelet mean volumeOr dered By: Roberto Andre on 02-27-2022 Platelet mean volume (Bld) [Entitic vol] 12.8 fL 6.2-12.0 [facility] Determination of erythrocyte mean corpuscular volume (MCV)Ordered By: Roberto Andre on 02-27-2022 MCV (RBC) [Entitic vol] 90.6 fL 81-99 [facility] Hematocrit Auto (Bld) [Volum e fraction]Ordered By: Roberto Andre on 02-27-2022 Hematocrit (Bld) [Volume fraction] 35.6 % 37-47 [facility] - Chemistry and C hemistry - challengeOrdered By: Roberto Andre on 02-27-2022 CO2 [Moles/Vol] 28.0 mmol/L 21.0-32.0 [facility] Urea nitrogen/Creatinine [Mass ratio] 29.4 mg/mg 10-20 [facility] - Hematology and Cell countsOrdered By: Roberto Andre on 02-27-2022 Erythrocyte distribution width (RBC) [Entitic vol] 63.4 fL 35.1-43.9 [facility] Erythrocyte distribution width (RBC) [Ratio] 19.1 % 11.6-14.6 [facility] MCH (RBC) [Entitic mass] 29.5 pg 27.0-32.0 [facility] MCHC Auto (RBC) [Mass/Vol]Or dered By: Roberto Andre on 02-27-2022 MCHC (RBC) [Mass/Vol] 32.6 g/dL 32-36 [facility] No Panel InformationOrdered By: Roberto Andre on 02-27-2022 Estimated GFR (MDRD) Amer 131 mL/min >60 [facility] Comment on above: GFR Calc Estimated GFR (MDRD) Non-Af Amer 108 mL/min >60 [facility] Comment on above: Non- GFR Calc Platelets bldOrdered By: Wan Andre on 02-27-2022 Platelets (Bld) [#/Vol] 275 10*3/uL 150-450 [facility] Serum or plasma calcium rajni urement (mass/volume)Ordered By: Roberto Andre on 02-27-2022 Calcium [Mass/Vol] 9.1 mg/dL 8.5-10.1 [facility] Serum or plasma creatinine m easurement (mass/volume)Ordered By: Roberto Andre on 02-27-2022 Creatinine [Mass/Vol] 0.58 mg/dL 0.55-1.02 [facility] Comment on above: The validity of the calculated GFR & GFRAA in patients over 70 years has not been determined. Clinical correlation is essential. Serum or plasma urea nitroge n measurement (mass/volume)Ordered By: Roberto Andre on 02-27-2022 Urea nitrogen [Mass/Vol] 17 mg/dL 7-18 [facility] Thin prep Papanicolaou smear with manual screeningOrdered By: Roberto Andre on 02-27-2022 Thin prep Papanicolaou smear with manual screening 5 5-15 [facility] Basophil percentageOrdered B y: Roberto Andre on 02-20-2022 Chloride [Moles/Vol] 100 mmol/L 98-107 [facility] Glucose [Mass/Vol] 89 mg/dL 74-106 [facility] Potassium [Moles/Vol] 3.9 mmol/L 3.5-5.1 [facility] Sodium [Moles/Vol] 136 mmol/L 136-145 [facility] WBC (Bld) [#/Vol] 6.6 10*3/uL 4.4-11.0 [facility] Blood erythrocytes count (nu mber/volume)Ordered By: Roberto Andre on 02-20-2022 RBC (Bld) [#/Vol] 4.21 10*6/uL 4.2-5.4 [facility] Blood hemoglobin measurement (mass/volume)Ordered By: Roberto Andre on 02-20-2022 Hemoglobin (Bld) [Mass/Vol] 12.3 g/dL 12.0-15.0 [facility] Blood manual differential co mment interpretation (narrative result)Ordered By: Roberto Andre on 02-20-2022 Manual differential comment Donnie (Bld) [Interp] See comment [facility] Comment on above: 1+ ANISOCYTOSIS Blood platelet mean volumeOr dered By: Roberto Andre on 02-20-2022 Platelet mean volume (Bld) [Entitic vol] 11.7 fL 6.2-12.0 [facility] Determination of erythrocyte mean corpuscular volume (MCV)Ordered By: Roberto Andre on 02-20-2022 MCV (RBC) [Entitic vol] 91.0 fL 81-99 [facility] Hematocrit Auto (Bld) [Volum e fraction]Ordered By: Roberto Andre on 02-20-2022 Hematocrit (Bld) [Volume fraction] 38.3 % 37-47 [facility] Laboratory - Chemistry and C hemistry - challengeOrdered By: Roberto Andre on 02-20-2022 CO2 [Moles/Vol] 29.0 mmol/L 21.0-32.0 [facility] Urea nitrogen/Creatinine [Mass ratio] 20.7 mg/mg 10-20 [facility] Laboratory - Hematology and Cell countsOrdered By: Roberto Andre on 02-20-2022 Erythrocyte distribution width (RBC) [Entitic vol] 66.1 fL 35.1-43.9 [facility] Erythrocyte distribution width (RBC) [Ratio] 19.8 % 11.6-14.6 [facility] MCH (RBC) [Entitic mass] 29.2 pg 27.0-32.0 [facility] MCHC Auto (RBC) [Mass/Vol]Or dered By: Roberto Andre on 11-01-2022 MCHC (RBC) [Mass/Vol] 32.1 g/dL 32-36 [facility] No Panel InformationOrdered By: Roberto Andre on 02-20-2022 Estimated GFR (MDRD) Amer 182 mL/min >60 [facility] Comment on above: GFR Calc Estimated GFR (MDRD) Non-Af Amer 150 mL/min >60 [facility] Comment on above: Non- GFR Calc Platelets bldOrdered By: Wan Andre on 02-20-2022 Platelets (Bld) [#/Vol] 325 10*3/uL 150-450 [facility] Serum or plasma calcium rajni urement (mass/volume)Ordered By: Roberto Andre on 02-20-2022 Calcium [Mass/Vol] 9.3 mg/dL 8.5-10.1 [facility] Serum or plasma creatinine m easurement (mass/volume)Ordered By: Roberto Andre on 02-20-2022 Creatinine [Mass/Vol] 0.44 mg/dL 0.55-1.02 [facility] Comment on above: The validity of the calculated GFR & GFRAA in patients over 70 years has not been determined. Clinical correlation is essential. Serum or plasma urea nitroge n measurement (mass/volume)Ordered By: Roberto Andre on 02-20-2022 Urea nitrogen [Mass/Vol] 9 mg/dL 7-18 [facility] Thin prep Papanicolaou smear with manual screeningOrdered By: Roberto Andre on 02-20-2022 Thin prep Papanicolaou smear with manual screening 7 5-15 [facility] Basophil percentageon 2021 Chloride [Moles/Vol] 106 mmol/L 98-107 [facility] Work Phone: Glucose [Mass/Vol] 78 mg/dL 74-106 [facility] Work Phone: Potassium [Moles/Vol] 3.8 mmol/L 3.5-5.1 [facility] Work Phone: Sodium [Moles/Vol] 140 mmol/L 136-145 [facility] Work Phone: WBC (Bld) [#/Vol] 5.2 10*3/uL 4.4-11.0 [facility] Work Phone: Blood erythrocytes count (nu mber/volume)on 02-13-2022 RBC (Bld) [#/Vol] 3.68 10*6/uL 4.2-5.4 [facility] Work Phone: Blood hemoglobin measurement (mass/volume)on 02-13-2022 Hemoglobin (Bld) [Mass/Vol] 10.7 g/dL 12.0-15.0 [facility] Work Phone: [phone] Blood platelet mean volumeon 02-13-2022 Platelet mean volume (Bld) [Entitic vol] 12.6 fL 6.2-12.0 [facility] Work Phone: Determination of erythrocyte mean corpuscular volume (MCV)on 02-13-2022 MCV (RBC) [Entitic vol] 90.5 fL 81-99 [facility] Work Phone: [phone] Hematocrit Auto (Bld) [Volum e fraction]on 02-13-2022 Hematocrit (Bld) [Volume fraction] 33.3 % 37-47 [facility] Work Phone: Laboratory - Chemistry and C hemistry - challengeon 02-13-2022 CO2 [Moles/Vol] 32.0 mmol/L 21.0-32.0 [facility] Work Phone: [phone] Urea nitrogen/Creatinine [Mass ratio] 28.9 mg/mg 10-20 [facility] Work Phone: [phone] Laboratory - Hematology and Cell countson 02-13-2022 Erythrocyte distribution width (RBC) [Entitic vol] 67.1 fL 35.1-43.9 [facility] Work Phone: [phone] Erythrocyte distribution width (RBC) [Ratio] 20.0 % 11.6-14.6 [facility] Work Phone: [phone] MCH (RBC) [Entitic mass] 29.1 pg 27.0-32.0 [facility] Work Phone: [phone] MCHC Auto (RBC) [Mass/Vol]on 02-13-2022 MCHC (RBC) [Mass/Vol] 32.1 g/dL 32-36 [facility] Work Phone: No Panel Informationon 02-13 Estimated GFR (MDRD) Amer 175 mL/min >60 [facility] Work Phone: Comment on above: GFR Calc Estimated GFR (MDRD) Non-Af Amer 144 mL/min >60 [facility] Work Phone: Comment on above: Non- GFR Calc Platelets bldon 02-13-2022 Platelets (Bld) [#/Vol] 258 10*3/uL 150-450 [facility] Work Phone: Serum or plasma calcium rajni urement (mass/volume)on 02-13-2022 Calcium [Mass/Vol] 9.1 mg/dL 8.5-10.1 [facility] Work Phone: Serum or plasma creatinine m easurement (mass/volume)on 02-13-2022 Creatinine [Mass/Vol] 0.45 mg/dL 0.55-1.02 [facility] Work Phone: Comment on above: The validity of the calculated GFR & GFRAA in patients over 70 years has not been determined. Clinical correlation is essential. Serum or plasma urea nitroge n measurement (mass/volume)on 02-13-2022 Urea nitrogen [Mass/Vol] 13 mg/dL 7-18 [facility] Work Phone: Thin prep Papanicolaou smear with manual screeningon 02-13-2022 Thin prep Papanicolaou smear with manual screening 2 5-15 [facility] Work Phone: Basophil percentageon 2021 Chloride [Moles/Vol] 105 mmol/L 98-107 [facility] Work Phone: Glucose [Mass/Vol] 80 mg/dL 74-106 [facility] Work Phone: [phone] Potassium [Moles/Vol] 3.8 mmol/L 3.5-5.1 [facility] Work Phone: Sodium [Moles/Vol] 141 mmol/L 136-145 [facility] Work Phone: [phone] WBC (Bld) [#/Vol] 5.6 10*3/uL 4.4-11.0 [facility] Work Phone: [phone] Blood erythrocytes count (nu mber/volume)on 02-06-2022 RBC (Bld) [#/Vol] 3.76 10*6/uL 4.2-5.4 [facility] Work Phone: [phone] Blood hemoglobin measurement (mass/volume)on 02-06-2022 Hemoglobin (Bld) [Mass/Vol] 10.6 g/dL 12.0-15.0 [facility] Work Phone: [phone] Blood manual differential co mment interpretation (narrative result)on 02-06-2022 Manual differential comment Donnie (Bld) [Interp] COMMENT [facility] Work Phone: Comment on above: 1+ ANISO. Blood platelet mean volumeon 02-06-2022 Platelet mean volume (Bld) [Entitic vol] 12.8 fL 6.2-12.0 [facility] Work Phone: [phone] Determination of erythrocyte mean corpuscular volume (MCV)on 02-06-2022 MCV (RBC) [Entitic vol] 89.6 fL 81-99 [facility] Work Phone: [phone] Hematocrit Auto (Bld) [Volum e fraction]on 02-06-2022 Hematocrit (Bld) [Volume fraction] 33.7 % 37-47 [facility] Work Phone: [phone] Laboratory - Chemistry and C hemistry - challengeon 02-06-2022 CO2 [Moles/Vol] 28.0 mmol/L 21.0-32.0 [facility] Work Phone: [phone] Urea nitrogen/Creatinine [Mass ratio] 32.7 mg/mg 10-20 [facility] Work Phone: [phone] Laboratory - Hematology and Cell countson 02-06-2022 Erythrocyte distribution width (RBC) [Entitic vol] 66.9 fL 35.1-43.9 [facility] Work Phone: Erythrocyte distribution width (RBC) [Ratio] 20.2 % 11.6-14.6 [facility] Work Phone: MCH (RBC) [Entitic mass] 28.2 pg 27.0-32.0 [facility] Work Phone: MCHC Auto (RBC) [Mass/Vol]on 02-06-2022 MCHC (RBC) [Mass/Vol] 31.5 g/dL 32-36 [facility] Work Phone: No Panel Informationon 02-06 Estimated GFR (MDRD) Amer 158 mL/min >60 [facility] Work Phone: Comment on above: GFR Calc Estimated GFR (MDRD) Non-Af Amer 131 mL/min >60 [facility] Work Phone: Comment on above: Non- GFR Calc Platelets bldon 02-06-2022 Platelets (Bld) [#/Vol] 236 10*3/uL 150-450 [facility] Work Phone: Serum or plasma calcium rajni urement (mass/volume)on 02-06-2022 Calcium [Mass/Vol] 9.0 mg/dL 8.5-10.1 [facility] Work Phone: Serum or plasma creatinine m easurement (mass/volume)on 02-06-2022 Creatinine [Mass/Vol] 0.49 mg/dL 0.55-1.02 [facility] Work Phone: Comment on above: The validity of the calculated GFR & GFRAA in patients over 70 years has not been determined. Clinical correlation is essential. Serum or plasma urea nitroge n measurement (mass/volume)on 02-06-2022 Urea nitrogen [Mass/Vol] 16 mg/dL -18 [facility] Work Phone: Thin prep Papanicolaou smear with manual screeningon 02-06-2022 Thin prep Papanicolaou smear with manual screening 8 5-15 [facility] Work Phone: Basophil percentageon 2021 Chloride [Moles/Vol] 104 mmol/L 98-[address] [facility] Work Phone: Glucose [Mass/Vol] 83 mg/dL 74-106 [facility] Work Phone: [phone] Potassium [Moles/Vol] 3.9 mmol/L 3.5-5.1 [facility] Work Phone: [phone] Sodium [Moles/Vol] 139 mmol/L 136-145 [facility] Work Phone: [phone] WBC (Bld) [#/Vol] 7.0 10*3/uL 4.4-11.0 [facility] Work Phone: Blood erythrocytes count (nu mber/volume)on 01-30-2022 RBC (Bld) [#/Vol] 4.34 10*6/uL 4.2-5.4 [facility] Work Phone: Blood hemoglobin measurement (mass/volume)on 01-30-2022 Hemoglobin (Bld) [Mass/Vol] 12.0 g/dL 12.0-15.0 [facility] Work Phone: Blood platelet mean volumeon 01-30-2022 Platelet mean volume (Bld) [Entitic vol] 13.4 fL 6.2-12.0 [facility] Work Phone: Determination of erythrocyte mean corpuscular volume (MCV)on 01-30-2022 MCV (RBC) [Entitic vol] 90.1 fL 81-99 [facility] Work Phone: [phone] Hematocrit Auto (Bld) [Volum e fraction]on 01-30-2022 Hematocrit (Bld) [Volume fraction] 39.1 % 37-47 [facility] Work Phone: Laboratory - Chemistry and C hemistry - challengeon 01-30-2022 CO2 [Moles/Vol] 28.0 mmol/L 21.0-32.0 [facility] Work Phone: Urea nitrogen/Creatinine [Mass ratio] 17.5 mg/mg 10-20 [facility] Work Phone: Laboratory - Hematology and Cell countson 01-30-2022 Erythrocyte distribution width (RBC) [Entitic vol] 66.9 fL 35.1-43.9 [facility] Work Phone: Erythrocyte distribution width (RBC) [Ratio] 20.3 % 11.6-14.6 [facility] Work Phone: MCH (RBC) [Entitic mass] 27.6 pg 27.0-32.0 [facility] Work Phone: MCHC Auto (RBC) [Mass/Vol]on 01-30-2022 MCHC (RBC) [Mass/Vol] 30.7 g/dL 32- [facility] Work Phone: No Panel Informationon 01-30 Estimated GFR (MDRD) Amer 133 mL/min >60 [facility] Work Phone: Comment on above: GFR Calc Estimated GFR (MDRD) Non-Af Amer 110 mL/min >60 [facility] Work Phone: Comment on above: Non- GFR Calc Platelets bldon 01-30-2022 Platelets (Bld) [#/Vol] 249 10*3/uL 150-450 [facility] Work Phone: Serum or plasma calcium rajni urement (mass/volume)on 01-30-2022 Calcium [Mass/Vol] 8.9 mg/dL 8.5-10.1 [facility] Work Phone: Serum or plasma creatinine m easurement (mass/volume)on 01-30-2022 Creatinine [Mass/Vol] 0.57 mg/dL 0.55-1.02 [facility] Work Phone: Comment on above: The validity of the calculated GFR & GFRAA in patients over 70 years has not been determined. Clinical correlation is essential. Serum or plasma urea nitroge n measurement (mass/volume)on 01-30-2022 Urea nitrogen [Mass/Vol] 10 mg/dL 7-18 [facility] Work Phone: Thin prep Papanicolaou smear with manual screeningon 01-30-2022 Thin prep Papanicolaou smear with manual screening 7 5-15 [facility] Work Phone: Basophil percentageon 2021 Chloride [Moles/Vol] 106 mmol/L 98-107 [facility] Work Phone: [phone] Glucose [Mass/Vol] 92 mg/dL 74-106 [facility] Work Phone: [phone] Potassium [Moles/Vol] 3.2 mmol/L 3.5-5.1 [facility] Work Phone: [phone] Sodium [Moles/Vol] 142 mmol/L 136-145 [facility] Work Phone: [phone] WBC (Bld) [#/Vol] 7.6 10*3/uL 4.4-11.0 [facility] Work Phone: Blood erythrocytes count (nu mber/volume)on 01-22-2022 RBC (Bld) [#/Vol] 4.15 10*6/uL 4.2-5.4 [facility] Work Phone: [phone] Blood hemoglobin measurement (mass/volume)on 01-22-2022 Hemoglobin (Bld) [Mass/Vol] 11.4 g/dL 12.0-15.0 [facility] Work Phone: [phone] Blood platelet mean volumeon 01-22-2022 Platelet mean volume (Bld) [Entitic vol] 12.8 fL 6.2-12.0 [facility] Work Phone: [phone] Determination of erythrocyte mean corpuscular volume (MCV)on 01-22-2022 MCV (RBC) [Entitic vol] 88.0 fL 81-99 [facility] Work Phone: [phone] Hematocrit Auto (Bld) [Volum e fraction]on 01-22-2022 Hematocrit (Bld) [Volume fraction] 36.5 % 37-47 [facility] Work Phone: Laboratory - Chemistry and C hemistry - challengeon 01-22-2022 CO2 [Moles/Vol] 26.0 mmol/L 21.0-32.0 [facility] Work Phone: [phone] Magnesium [Mass/Vol] 1.9 mg/dL 1.6-2.6 [facility] Work Phone: [phone] Urea nitrogen/Creatinine [Mass ratio] 24.1 mg/mg 10-20 [facility] Work Phone: [phone] Laboratory - Hematology and Cell countson 01-22-2022 Erythrocyte distribution width (RBC) [Entitic vol] 63.7 fL 35.1-43.9 [facility] Work Phone: [phone] Erythrocyte distribution width (RBC) [Ratio] 19.9 % 11.6-14.6 [facility] Work Phone: [phone] MCH (RBC) [Entitic mass] 27.5 pg 27.0-32.0 [facility] Work Phone: [phone] MCHC Auto (RBC) [Mass/Vol]on 01-22-2022 MCHC (RBC) [Mass/Vol] 31.2 g/dL 32-36 [facility] Work Phone: [phone] No Panel Informationon 01-22 Estimated GFR (MDRD) Amer 130 mL/min >60 [facility] Work Phone: [phone] Comment on above: GFR Calc Estimated GFR (MDRD) Non-Af Amer 107 mL/min >60 [facility] Work Phone: [phone] Comment on above: Non- GFR Calc Thyroid Stimulating Hormone (TSH) 0.57 uIU/mL 0.358-3.74 [facility] Work Phone: [phone] Vitamin D 25-Hydroxy 39.5 ng/mL [facility] Work Phone: [phone] Comment on above: Vitamin D 25(OH) Sta tus Range Deficiency <20 ng/mL (50nmol/L) Insufficiency 20 - 30 ng/mL (50 - 75 nmol/L) Sufficiency 30 - 100 ng/mL (75 - 250 nmol/L) Toxicity >100 ng/mL (>250 nmol/L) Platelets bldon 01-22-2022 Platelets (Bld) [#/Vol] 263 10*3/uL 150-450 [facility] Work Phone: Serum or plasma calcium rajni urement (mass/volume)on 01-22-2022 Calcium [Mass/Vol] 8.5 mg/dL 8.5-10.1 [facility] Work Phone: Serum or plasma creatinine m easurement (mass/volume)on 01-22-2022 Creatinine [Mass/Vol] 0.58 mg/dL 0.55-1.02 [facility] Work Phone: Comment on above: The validity of the calculated GFR & GFRAA in patients over 70 years has not been determined. Clinical correlation is essential. Serum or plasma urea nitroge n measurement (mass/volume)on 01-22-2022 Urea nitrogen [Mass/Vol] 14 mg/dL 7-18 [facility] Work Phone: Thin prep Papanicolaou smear with manual screeningon 01-22-2022 Thin prep Papanicolaou smear with manual screening 10 5-15 [facility] Work Phone: Basophil percentageon 2021 Chloride [Moles/Vol] 104 mmol/L 98-107 [facility] Work Phone: Glucose [Mass/Vol] 89 mg/dL 74-106 [facility] Work Phone: Potassium [Moles/Vol] 3.8 mmol/L 3.5-5.1 [facility] Work Phone: Sodium [Moles/Vol] 139 mmol/L 136-145 [facility] Work Phone: WBC (Bld) [#/Vol] 6.8 10*3/uL 4.4-11.0 [facility] Work Phone: Blood erythrocytes count (nu mber/volume)on 01-16-2022 RBC (Bld) [#/Vol] 3.95 10*6/uL 4.2-5.4 [facility] Work Phone: Blood hemoglobin measurement (mass/volume)on 01-16-2022 Hemoglobin (Bld) [Mass/Vol] 10.9 g/dL 12.0-15.0 [facility] Work Phone: [phone] Blood platelet mean volumeon 01-16-2022 Platelet mean volume (Bld) [Entitic vol] 12.9 fL 6.2-12.0 [facility] Work Phone: Determination of erythrocyte mean corpuscular volume (MCV)on 01-16-2022 MCV (RBC) [Entitic vol] 87.3 fL 81-99 [facility] Work Phone: [phone] Hematocrit Auto (Bld) [Volum e fraction]on 01-16-2022 Hematocrit (Bld) [Volume fraction] 34.5 % 37-47 [facility] Work Phone: Laboratory - Chemistry and C hemistry - challengeon 01-16-2022 CO2 [Moles/Vol] 28.0 mmol/L 21.0-32.0 [facility] Work Phone: Urea nitrogen/Creatinine [Mass ratio] 22.2 mg/mg 10-20 [facility] Work Phone: Laboratory - Hematology and Cell countson 01-16-2022 Erythrocyte distribution width (RBC) [Entitic vol] 60.9 fL 35.1-43.9 [facility] Work Phone: [phone] Erythrocyte distribution width (RBC) [Ratio] 18.9 % 11.6-14.6 [facility] Work Phone: [phone] MCH (RBC) [Entitic mass] 27.6 pg 27.0-32.0 [facility] Work Phone: [phone] MCHC Auto (RBC) [Mass/Vol]on 01-16-2022 MCHC (RBC) [Mass/Vol] 31.6 g/dL 32-36 [facility] Work Phone: No Panel Informationon 01-16 Estimated GFR (MDRD) Amer 142 mL/min >60 [facility] Work Phone: Comment on above: GFR Calc Estimated GFR (MDRD) Non-Af Amer 117 mL/min >60 [facility] Work Phone: Comment on above: Non- GFR Calc Platelets bldon 01-16-2022 Platelets (Bld) [#/Vol] 286 10*3/uL 150-450 [facility] Work Phone: Serum or plasma calcium rajni urement (mass/volume)on 01-16-2022 Calcium [Mass/Vol] 8.3 mg/dL 8.5-10.1 [facility] Work Phone: Serum or plasma creatinine m easurement (mass/volume)on 01-16-2022 Creatinine [Mass/Vol] 0.54 mg/dL 0.55-1.02 [facility] Work Phone: Comment on above: The validity of the calculated GFR & GFRAA in patients over 70 years has not been determined. Clinical correlation is essential. Serum or plasma urea nitroge n measurement (mass/volume)on 01-16-2022 Urea nitrogen [Mass/Vol] 12 mg/dL 7-18 [facility] Work Phone: Thin prep Papanicolaou smear with manual screeningon 01-16-2022 Thin prep Papanicolaou smear with manual screening 7 5-15 [facility] Work Phone: Basophil percentageon 2021 Chloride [Moles/Vol] 106 mmol/L 98-107 [facility] Work Phone: Glucose [Mass/Vol] 91 mg/dL 74-106 [facility] Work Phone: [phone] Potassium [Moles/Vol] 4.3 mmol/L 3.5-5.1 [facility] Work Phone: [phone] Sodium [Moles/Vol] 140 mmol/L 136-145 [facility] Work Phone: [phone] WBC (Bld) [#/Vol] 14.6 10*3/uL 4.4-11.0 [facility] Work Phone: Blood erythrocytes count (nu mber/volume)on 01-09-2022 RBC (Bld) [#/Vol] 3.86 10*6/uL 4.2-5.4 [facility] Work Phone: Blood hemoglobin measurement (mass/volume)on 01-09-2022 Hemoglobin (Bld) [Mass/Vol] 10.6 g/dL 12.0-15.0 [facility] Work Phone: Blood platelet mean volumeon 01-09-2022 Platelet mean volume (Bld) [Entitic vol] 13.1 fL 6.2-12.0 [facility] Work Phone: CNOVon 01-09-2022 CNOV Normal [facility] Determination of erythrocyte mean corpuscular volume (MCV)on 01-09-2022 MCV (RBC) [Entitic vol] 88.1 fL 81-99 [facility] Work Phone: [phone] Hematocrit Auto (Bld) [Volum e fraction]on 01-09-2022 Hematocrit (Bld) [Volume fraction] 34.0 % 37-47 [facility] Work Phone: Laboratory - Chemistry and C hemistry - challengeon 01-09-2022 CO2 [Moles/Vol] 28.0 mmol/L 21.0-32.0 [facility] Work Phone: [phone] Urea nitrogen/Creatinine [Mass ratio] 24.5 mg/mg 02-08 [facility] Work Phone: [phone] Laboratory - Hematology and Cell countson 01-09-2022 Erythrocyte distribution width (RBC) [Entitic vol] 59.2 fL 35.1-43.9 [facility] Work Phone: [phone] Erythrocyte distribution width (RBC) [Ratio] 18.4 % 11.6-14.6 [facility] Work Phone: [phone] MCH (RBC) [Entitic mass] 27.5 pg 27.0-32.0 [facility] Work Phone: MCHC Auto (RBC) [Mass/Vol]on 01-09-2022 MCHC (RBC) [Mass/Vol] 31.2 g/dL 32-36 [facility] Work Phone: No Panel Informationon 01-09 Estimated GFR (MDRD) Amer 144 mL/min >60 [facility] Work Phone: Comment on above: GFR Calc Estimated GFR (MDRD) Non-Af Amer 119 mL/min >60 [facility] Work Phone: Comment on above: Non- GFR Calc Platelets bldon 01-09-2022 Platelets (Bld) [#/Vol] 220 10*3/uL 150-450 [facility] Work Phone: Serum or plasma calcium rajni urement (mass/volume)on 01-09-2022 Calcium [Mass/Vol] 8.6 mg/dL 8.5-10.1 [facility] Work Phone: Serum or plasma creatinine m easurement (mass/volume)on 01-09-2022 Creatinine [Mass/Vol] 0.53 mg/dL 0.55-1.02 [facility] Work Phone: Comment on above: The validity of the calculated GFR & GFRAA in patients over 70 years has not been determined. Clinical correlation is essential. Serum or plasma urea nitroge n measurement (mass/volume)on 01-09-2022 Urea nitrogen [Mass/Vol] 13 mg/dL 7-18 [facility] Work Phone: [phone] Thin prep Papanicolaou smear with manual screeningon 01-09-2022 Thin prep Papanicolaou smear with manual screening 6 5-15 [facility] Work Phone: [phone] MRI BRAIN WO/W IVCONon 01-04 [facility] Basophil percentageon 2021 Chloride [Moles/Vol] 107 mmol/L 98-107 [facility] Work Phone: [phone] Glucose [Mass/Vol] 89 mg/dL 74-106 [facility] Work Phone: [phone] Potassium [Moles/Vol] 4.0 mmol/L 3.5-5.1 [facility] Work Phone: [phone] Sodium [Moles/Vol] 141 mmol/L 136-145 [facility] Work Phone: [phone] WBC (Bld) [#/Vol] 6.8 10*3/uL 4.4-11.0 [facility] Work Phone: [phone] Blood erythrocytes count (nu mber/volume)on 01-02-2022 RBC (Bld) [#/Vol] 4.07 10*6/uL 4.2-5.4 [facility] Work Phone: [phone] Blood hemoglobin measurement (mass/volume)on 01-02-2022 Hemoglobin (Bld) [Mass/Vol] 11.5 g/dL 12.0-15.0 [facility] Work Phone: [phone] Blood platelet mean volumeon 01-02-2022 Platelet mean volume (Bld) [Entitic vol] 13.0 fL 6.2-12.0 [facility] Work Phone: [phone] Determination of erythrocyte mean corpuscular volume (MCV)on 01-02-2022 MCV (RBC) [Entitic vol] 90.4 fL 81-99 [facility] Work Phone: [phone] Hematocrit Auto (Bld) [Volum e fraction]on 01-02-2022 Hematocrit (Bld) [Volume fraction] 36.8 % 37-47 [facility] Work Phone: [phone] Laboratory - Chemistry and C hemistry - challengeon 01-02-2022 CO2 [Moles/Vol] 27.0 mmol/L 21.0-32.0 [facility] Work Phone: [phone] Urea nitrogen/Creatinine [Mass ratio] 15.7 mg/mg 10-20 [facility] Work Phone: [phone] Laboratory - Hematology and Cell countson 01-02-2022 Erythrocyte distribution width (RBC) [Entitic vol] 57.1 fL 35.1-43.9 [facility] Work Phone: Erythrocyte distribution width (RBC) [Ratio] 17.2 % 11.6-14.6 [facility] Work Phone: MCH (RBC) [Entitic mass] 28.3 pg 27.0-32.0 [facility] Work Phone: MCHC Auto (RBC) [Mass/Vol]on 01-02-2022 MCHC (RBC) [Mass/Vol] 31.3 g/dL 32-36 [facility] Work Phone: No Panel Informationon 01-02 Estimated GFR (MDRD) Amer 132 mL/min >60 [facility] Work Phone: Comment on above: GFR Calc Estimated GFR (MDRD) Non-Af Amer 109 mL/min >60 [facility] Work Phone: Comment on above: Non- GFR Calc Platelets bldon 01-02-2022 Platelets (Bld) [#/Vol] 274 10*3/uL 150-450 [facility] Work Phone: Serum or plasma calcium rajni urement (mass/volume)on 01-02-2022 Calcium [Mass/Vol] 9.7 mg/dL 8.5-10.1 [facility] Work Phone: Serum or plasma creatinine m easurement (mass/volume)on 01-02-2022 Creatinine [Mass/Vol] 0.58 mg/dL 0.55-1.02 [facility] Work Phone: Comment on above: The validity of the calculated GFR & GFRAA in patients over 70 years has not been determined. Clinical correlation is essential. Serum or plasma urea nitroge n measurement (mass/volume)on 01-02-2022 Urea nitrogen [Mass/Vol] 9 mg/dL 7-18 [facility] Work Phone: Thin prep Papanicolaou smear with manual screeningon 01-02-2022 Thin prep Papanicolaou smear with manual screening 7 5-15 [facility] Work Phone: [phone] Basophil percentageon 2021 Chloride [Moles/Vol] 104 mmol/L 98-[address] [facility] [address] [facility] Work Phone: [phone] Glucose [Mass/Vol] 77 mg/dL 74-106 [facility] Work Phone: [phone] Potassium [Moles/Vol] 4.1 mmol/L 3.5-5.1 [facility] Work Phone: [phone] Sodium [Moles/Vol] 140 mmol/L 136-145 [facility] Work Phone: [phone] WBC (Bld) [#/Vol] 7.0 10*3/uL 4.4-11.0 [facility] Work Phone: [phone] Blood erythrocytes count (nu mber/volume)on 12-26-2021 RBC (Bld) [#/Vol] 4.18 10*6/uL 4.2-5.4 [facility]: [phone] Blood hemoglobin measurement (mass/volume)on 12-26-2021 Hemoglobin (Bld) [Mass/Vol] 12.5 g/dL 12.0-15.0 [facility] Work Phone: [phone] Blood platelet mean volumeon 12-26-2021 Platelet mean volume (Bld) [Entitic vol] 12.1 fL 6.2-12.0 [facility] Work Phone: [phone] Determination of erythrocyte mean corpuscular volume (MCV)on 12-26-2021 MCV (RBC) [Entitic vol] 96.9 fL 81-99 [facility] Work Phone: [phone] Hematocrit Auto (Bld) [Volum e fraction]on 12-26-2021 Hematocrit (Bld) [Volume fraction] 40.5 % 37-47 [facility] Work Phone: [phone] Laboratory - Chemistry and C hemistry - challengeon 12-26-2021 CO2 [Moles/Vol] 27.0 mmol/L 21.0-32.0 [facility] Work Phone: [phone] Urea nitrogen/Creatinine [Mass ratio] 18.7 mg/mg 10-20 [facility] Work Phone: Laboratory - Hematology and Cell countson 12-26-2021 Erythrocyte distribution width (RBC) [Entitic vol] 58.4 fL 35.1-43.9 [facility] Work Phone: [phone] Erythrocyte distribution width (RBC) [Ratio] 18.4 % 11.6-14.6 [facility] Work Phone: [phone] MCH (RBC) [Entitic mass] 29.9 pg 27.0-32.0 [facility] Work Phone: [phone] MCHC Auto (RBC) [Mass/Vol]on 12-26-2021 MCHC (RBC) [Mass/Vol] 30.9 g/dL 32-36 [facility] Work Phone: [phone] No Panel Informationon 12-26 Estimated GFR (MDRD) Amer 143 mL/min >60 [facility] Work Phone: Comment on above: GFR Calc Estimated GFR (MDRD) Non-Af Amer 118 mL/min >60 [facility] Work Phone: Comment on above: Non- GFR Calc Platelets bldon 12-26-2021 Platelets (Bld) [#/Vol] 286 10*3/uL 150-450 [facility] Work Phone: [phone] Serum or plasma calcium rajni urement (mass/volume)on 12-26-2021 Calcium [Mass/Vol] 9.8 mg/dL 8.5-10.1 [facility] Work Phone: [phone] Serum or plasma creatinine m easurement (mass/volume)on 12-26-2021 Creatinine [Mass/Vol] 0.54 mg/dL 0.55-1.02 [facility] Work Phone: Comment on above: The validity of the calculated GFR & GFRAA in patients over 70 years has not been determined. Clinical correlation is essential. Serum or plasma urea nitroge n measurement (mass/volume)on 12-26-2021 Urea nitrogen [Mass/Vol] 10 mg/dL 7-18 [facility] Work Phone: Thin prep Papanicolaou smear with manual screeningon 12-26-2021 Thin prep Papanicolaou smear with manual screening 9 5-15 [facility] Work Phone: Basophil percentageon 2021 Chloride [Moles/Vol] 108 mmol/L 98-107 [facility]: [phone] Glucose [Mass/Vol] 91 mg/dL 74-106 [facility] Work Phone: [phone] Potassium [Moles/Vol] 3.5 mmol/L 3.5-5.1 [facility] Work Phone: [phone] Sodium [Moles/Vol] 142 mmol/L 136-145 [facility] Work Phone: [phone] WBC (Bld) [#/Vol] 7.1 10*3/uL 4.4-11.0 [facility] Work Phone: Blood erythrocytes count (nu mber/volume)on 12-20-2021 RBC (Bld) [#/Vol] 3.81 10*6/uL 4.2-5.4 [facility] Work Phone: [phone] Blood hemoglobin measurement (mass/volume)on 12-20-2021 Hemoglobin (Bld) [Mass/Vol] 10.6 g/dL 12.0-15.0 [facility] Work Phone: Blood platelet mean volumeon 12-20-2021 Platelet mean volume (Bld) [Entitic vol] 13.0 fL 6.2-12.0 [facility] Work Phone: [phone] Determination of erythrocyte mean corpuscular volume (MCV)on 12-20-2021 MCV (RBC) [Entitic vol] 89.0 fL 81-99 [facility] Work Phone: [phone] Hematocrit Auto (Bld) [Volum e fraction]on 12-20-2021 Hematocrit (Bld) [Volume fraction] 33.9 % 37-47 [facility] Work Phone: Laboratory - Chemistry and C hemistry - challengeon 12-20-2021 CO2 [Moles/Vol] 27.0 mmol/L 21.0-32.0 [facility] Work Phone: [phone] Urea nitrogen/Creatinine [Mass ratio] 19.1 mg/mg 10-20 [facility] Work Phone: [phone] Laboratory - Hematology and Cell countson 12-20-2021 Erythrocyte distribution width (RBC) [Entitic vol] 51.5 fL 35.1-43.9 [facility] Work Phone: [phone] Erythrocyte distribution width (RBC) [Ratio] 15.8 % 11.6-14.6 [facility] Work Phone: [phone] MCH (RBC) [Entitic mass] 27.8 pg 27.0-32.0 [facility] Work Phone: [phone] MCHC Auto (RBC) [Mass/Vol]on 12-20-2021 MCHC (RBC) [Mass/Vol] 31.3 g/dL 32-36 [facility] Work Phone: [phone] No Panel Informationon 12-20 Estimated GFR (MDRD) Amer 132 mL/min >60 [facility] Work Phone: Comment on above: GFR Calc Estimated GFR (MDRD) Non-Af Amer 109 mL/min >60 [facility] Work Phone: [phone] Comment on above: Non- GFR Calc Platelets bldon 12-20-2021 Platelets (Bld) [#/Vol] 286 10*3/uL 150-450 [facility] Work Phone: [phone] Serum or plasma calcium rajni urement (mass/volume)on 12-20-2021 Calcium [Mass/Vol] 8.9 mg/dL 8.5-10.1 [facility] Work Phone: [phone] Serum or plasma creatinine m easurement (mass/volume)on 12-20-2021 Creatinine [Mass/Vol] 0.58 mg/dL 0.55-1.02 [facility] Work Phone: [phone] Comment on above: The validity of the calculated GFR & GFRAA in patients over 70 years has not been determined. Clinical correlation is essential. Serum or plasma urea nitroge n measurement (mass/volume)on 12-20-2021 Urea nitrogen [Mass/Vol] 11 mg/dL 7-18 [facility] Work Phone: Thin prep Papanicolaou smear with manual screeningon 12-20-2021 Thin prep Papanicolaou smear with manual screening 7 5-15 [facility] Work Phone: Basophil percentageon 2021 Basophil percentage 10-25 SEEN /hpf 0-5 [facility] Work Phone: Bilirubin Test strip Ql (U)o n 12-18-2021 Bilirubin Ql (U) Negative Negative [facility] Work Phone: Ketones Test strip Ql (U)on 12-18-2021 Ketones Ql (U) Negative Negative [facility] Work Phone: Mucus LM Ql (Urine sed)on Mucus Ql (Urine sed) 0 SEEN /hpf [facility] Work Phone: Nitrite Test strip Ql (U)on 12-18-2021 Nitrite Ql (U) Negative Negative [facility] Work Phone: Protein Test strip Ql (U)on 12-18-2021 Protein Ql (U) Negative Negative [facility] Work Phone: Squamous epithelial cells de tection in urine sediment by light microscopyon 12-18-2021 Epithelial cells.squamous LM Ql (Urine sed) 0 SEEN /hpf 5-10 [facility] Work Phone: Urine blood detectionon 11-21 RBC Ql (U) 10 /ul Negative [facility] Work Phone: RBC Ql (U) 0 SEEN /hpf 0-5 [facility] Work Phone: Urine clarityon 12-18-2021 Clarity (U) Clear Clear [facility] Work Phone: Urine color determinationon 12-18-2021 Color (U) Yellow Yellow [facility] Work Phone: Urine glucose detectionon Glucose Ql (U) Normal mg/dl Normal [facility] Work Phone: [phone] Urine leukocyte esterase det ection by dipstickon 12-18-2021 Leukocyte esterase Test strip Ql (U) 500 /ul Negative [facility] Work Phone: Urine pHon 12-18-2021 pH (U) 6.0 [pH] 5.0 - 8.0 [facility] Work Phone: [phone] Urine sediment bacteria coun t by microscopy (number/high power field)on 12-18-2021 Bacteria LM.HPF (Urine sed) [#/Area] 2 /[HPF] None Seen [facility] Work Phone: [phone] Urine specific gravity measu rementon 12-18-2021 Specific gravity (U) [Rel density] 1.020 1.002-1.030 [facility] Work Phone: [phone] Urobilinogen Auto test strip Ql (U)on 12-18-2021 Urobilinogen Ql (U) Normal mg/dl Normal [facility] Work Phone: Basophil percentageon 2021 Chloride [Moles/Vol] 106 mmol/L 98-107 [facility] Work Phone: [phone] Glucose [Mass/Vol] 85 mg/dL 74-106 [facility] Work Phone: [phone] Potassium [Moles/Vol] 3.5 mmol/L 3.5-5.1 [facility] Work Phone: [phone] Sodium [Moles/Vol] 140 mmol/L 136-145 [facility] Work Phone: [phone] WBC (Bld) [#/Vol] 8.8 10*3/uL 4.4-11.0 [facility] Work Phone: [phone] Blood erythrocytes count (nu mber/volume)on 12-12-2021 RBC (Bld) [#/Vol] 4.43 10*6/uL 4.2-5.4 [facility] Work Phone: Blood hemoglobin measurement (mass/volume)on 12-12-2021 Hemoglobin (Bld) [Mass/Vol] 12.3 g/dL 12.0-15.0 [facility] Work Phone: [phone] Blood platelet mean volumeon 12-12-2021 Platelet mean volume (Bld) [Entitic vol] 12.8 fL 6.2-12.0 [facility] Work Phone: [phone] Determination of erythrocyte mean corpuscular volume (MCV)on 12-12-2021 MCV (RBC) [Entitic vol] 87.6 fL 81-99 [facility] Work Phone: [phone] Hematocrit Auto (Bld) [Volum e fraction]on 12-12-2021 Hematocrit (Bld) [Volume fraction] 38.8 % 37-47 [facility] Work Phone: [phone] Laboratory - Chemistry and C hemistry - challengeon 12-12-2021 CO2 [Moles/Vol] 27.0 mmol/L 21.0-32.0 [facility] Work Phone: [phone] Urea nitrogen/Creatinine [Mass ratio] 18.6 mg/mg 10-20 [facility] Work Phone: [phone] Laboratory - Hematology and Cell countson 12-12-2021 Erythrocyte distribution width (RBC) [Entitic vol] 48.2 fL 35.1-43.9 [facility] Work Phone: [phone] Erythrocyte distribution width (RBC) [Ratio] 14.9 % 11.6-14.6 [facility] Work Phone: [phone] MCH (RBC) [Entitic mass] 27.8 pg 27.0-32.0 [facility] Work Phone: [phone] MCHC Auto (RBC) [Mass/Vol]on 12-12-2021 MCHC (RBC) [Mass/Vol] 31.7 g/dL 32-36 [facility] Work Phone: [phone] No Panel Informationon 12-12 Estimated GFR (MDRD) Amer 142 mL/min >60 [facility] Work Phone: [phone] Comment on above: GFR Calc Estimated GFR (MDRD) Non-Af Amer 117 mL/min >60 [facility] Work Phone: [phone] Comment on above: Non- GFR Calc Platelets bldon 12-12-2021 Platelets (Bld) [#/Vol] 354 10*3/uL 150-450 [facility] Work Phone: [phone] Serum or plasma calcium rajni urement (mass/volume)on 12-12-2021 Calcium [Mass/Vol] 9.8 mg/dL 8.5-10.1 [facility] Work Phone: [phone] Serum or plasma creatinine m easurement (mass/volume)on 12-12-2021 Creatinine [Mass/Vol] 0.54 mg/dL 0.55-1.02 [facility] Work Phone: [phone] Comment on above: The validity of the calculated GFR & GFRAA in patients over 70 years has not been determined. Clinical correlation is essential. Serum or plasma urea nitroge n measurement (mass/volume)on 12-12-2021 Urea nitrogen [Mass/Vol] 10 mg/dL 7-18 [facility] Work Phone: [phone] Thin prep Papanicolaou smear with manual screeningon 12-12-2021 Thin prep Papanicolaou smear with manual screening 7 5-15 [facility] Work Phone: Basophil percentageon 2021 Chloride [Moles/Vol] 104 mmol/L 98-107 [facility] Work Phone: [phone] Glucose [Mass/Vol] 100 mg/dL 74-106 [facility] Work Phone: [phone] Comment on above: Fasting Glucose resu lt from 100 to 125 mg/dL suggests IMPAIRED HOMEOSTASIS per A.D.A. criteria. Potassium [Moles/Vol] 3.8 mmol/L 3.5-5.1 [facility] Work Phone: [phone] Sodium [Moles/Vol] 138 mmol/L 136-145 [facility] Work Phone: [phone] WBC (Bld) [#/Vol] 10.0 10*3/uL 4.4-11.0 [facility] Work Phone: [phone] Blood erythrocytes count (nu mber/volume)on 12-05-2021 RBC (Bld) [#/Vol] 3.74 10*6/uL 4.2-5.4 [facility] Work Phone: [phone] Blood hemoglobin measurement (mass/volume)on 12-05-2021 Hemoglobin (Bld) [Mass/Vol] 10.8 g/dL 12.0-15.0 [facility] Work Phone: [phone] Blood platelet mean volumeon 12-05-2021 Platelet mean volume (Bld) [Entitic vol] 12.0 fL 6.2-12.0 [facility] Work Phone: [phone] Determination of erythrocyte mean corpuscular volume (MCV)on 12-05-2021 MCV (RBC) [Entitic vol] 90.1 fL 81-99 [facility] Work Phone: [phone] Hematocrit Auto (Bld) [Volum e fraction]on 12-05-2021 Hematocrit (Bld) [Volume fraction] 33.7 % 37-47 [facility] Work Phone: [phone] Laboratory - Chemistry and C hemistry - challengeon 12-05-2021 CO2 [Moles/Vol] 26.0 mmol/L 21.0-32.0 [facility] Work Phone: [phone] Urea nitrogen/Creatinine [Mass ratio] 20.2 mg/mg 10-20 [facility] Work Phone: [phone] Laboratory - Hematology and Cell countson 12-05-2021 Erythrocyte distribution width (RBC) [Entitic vol] 48.7 fL 35.1-43.9 [facility] Work Phone: [phone] Erythrocyte distribution width (RBC) [Ratio] 14.6 % 11.6-14.6 [facility] Work Phone: [phone] MCH (RBC) [Entitic mass] 28.9 pg 27.0-32.0 [facility] Work Phone: [phone] MCHC Auto (RBC) [Mass/Vol]on 12-05-2021 MCHC (RBC) [Mass/Vol] 32.0 g/dL 32-36 [facility] Work Phone: No Panel Informationon 12-05 Estimated GFR (MDRD) Amer 157 mL/min >60 [facility] Work Phone: Comment on above: GFR Calc Estimated GFR (MDRD) Non-Af Amer 130 mL/min >60 [facility] Work Phone: Comment on above: Non- GFR Calc Platelets bldon 12-05-2021 Platelets (Bld) [#/Vol] 360 10*3/uL 150-450 [facility] Work Phone: [phone] Serum or plasma calcium rajni urement (mass/volume)on 12-05-2021 Calcium [Mass/Vol] 9.9 mg/dL 8.5-10.1 [facility] Work Phone: [phone] Serum or plasma creatinine m easurement (mass/volume)on 12-05-2021 Creatinine [Mass/Vol] 0.49 mg/dL 0.55-1.02 [facility] Work Phone: Comment on above: The validity of the calculated GFR & GFRAA in patients over 70 years has not been determined. Clinical correlation is essential. Serum or plasma urea nitroge n measurement (mass/volume)on 12-05-2021 Urea nitrogen [Mass/Vol] 10 mg/dL 7-18 [facility] Work Phone: [phone] Thin prep Papanicolaou smear with manual screeningon 12-05-2021 Thin prep Papanicolaou smear with manual screening 8 5-15 [facility] Work Phone: [phone] Bilirubin Test strip Ql (U)o n 12-03-2021 Bilirubin Ql (U) Negative Negative [facility] Work Phone: [phone] Ketones Test strip Ql (U)on 12-03-2021 Ketones Ql (U) 5 mg/dl Negative [facility] Work Phone: [phone] Nitrite Test strip Ql (U)on 12-03-2021 Nitrite Ql (U) Positive Negative [facility] Work Phone: Protein Test strip Ql (U)on 12-03-2021 Protein Ql (U) 30 mg/dl Negative [facility] Work Phone: Urine blood detectionon 11-20 RBC Ql (U) 50 /ul Negative [facility] Work Phone: Urine clarityon 12-03-2021 Clarity (U) Cloudy Clear [facility] Work Phone: Urine color determinationon 12-03-2021 Color (U) Straw Yellow [facility] Work Phone: Urine glucose detectionon Glucose Ql (U) Normal mg/dl Normal [facility] Work Phone: Urine leukocyte esterase det ection by dipstickon 12-03-2021 Leukocyte esterase Test strip Ql (U) 500 /ul Negative [facility] Work Phone: Urine pHon 12-03-2021 pH (U) 6.0 [pH] 5.0 - 8.0 [facility] Work Phone: Urine specific gravity measu rementon 12-03-2021 Specific gravity (U) [Rel density] 1.010 1.002-1.030 [facility] Work Phone: Urobilinogen Auto test strip Ql (U)on 12-03-2021 Urobilinogen Ql (U) Normal mg/dl Normal [facility] Work Phone: Basophil percentageon 2021 Chloride [Moles/Vol] 101 mmol/L 98-[address] [facility] Work Phone: Glucose [Mass/Vol] 107 mg/dL 74-106 [facility] Work Phone: Comment on above: Fasting Glucose resu lt from 100 to 125 mg/dL suggests IMPAIRED HOMEOSTASIS per A.D.A. criteria. Potassium [Moles/Vol] 3.6 mmol/L 3.5-5.1 [facility] Work Phone: Sodium [Moles/Vol] 136 mmol/L 136-145 [facility] Work Phone: Laboratory - Chemistry and C hemistry - challengeon 12-01-2021 CO2 [Moles/Vol] 29.0 mmol/L 21.0-32.0 [facility] Work Phone: Urea nitrogen/Creatinine [Mass ratio] 24.2 mg/mg 10-20 [facility] Work Phone: No Panel Informationon 12-01 Estimated GFR (MDRD) Amer 249 mL/min >60 [facility] Work Phone: Comment on above: GFR Calc Estimated GFR (MDRD) Non-Af Amer 206 mL/min >60 [facility] Work Phone: Comment on above: Non- GFR Calc Serum or plasma calcium rajni urement (mass/volume)on 12-01-2021 Calcium [Mass/Vol] 9.0 mg/dL 8.5-10.1 [facility] Work Phone: Serum or plasma creatinine m easurement (mass/volume)on 12-01-2021 Creatinine [Mass/Vol] 0.33 mg/dL 0.55-1.02 [facility] Work Phone: Comment on above: The validity of the calculated GFR & GFRAA in patients over 70 years has not been determined. Clinical correlation is essential. Serum or plasma urea nitroge n measurement (mass/volume)on 12-01-2021 Urea nitrogen [Mass/Vol] 8 mg/dL 7-18 [facility] Work Phone: Thin prep Papanicolaou smear with manual screeningon 12-01-2021 Thin prep Papanicolaou smear with manual screening 6 5-15 [facility] Work Phone: Basophil percentageon 2021 Chloride [Moles/Vol] 100 mmol/L 98-107 [facility] Work Phone: Glucose [Mass/Vol] 81 mg/dL 74-106 [facility] Work Phone: [phone] Potassium [Moles/Vol] 2.7 mmol/L 3.5-5.1 [facility] Work Phone: [phone] Comment on above: Critical Result(s) C alled at: 09:58:37 11/28/2021 by: Rosaura May to Christina. Results read back by same. Sodium [Moles/Vol] 134 mmol/L 136-145 [facility] Work Phone: [phone] WBC (Bld) [#/Vol] 9.7 10*3/uL 4.4-11.0 [facility] Work Phone: [phone] Blood erythrocytes count (nu mber/volume)on 11-28-2021 RBC (Bld) [#/Vol] 3.97 10*6/uL 4.2-5.4 [facility] Work Phone: [phone] Blood hemoglobin measurement (mass/volume)on 11-28-2021 Hemoglobin (Bld) [Mass/Vol] 11.4 g/dL 12.0-15.0 [facility] Work Phone: [phone] Blood platelet mean volumeon 11-28-2021 Platelet mean volume (Bld) [Entitic vol] 11.8 fL 6.2-12.0 [facility] Work Phone: [phone] Determination of erythrocyte mean corpuscular volume (MCV)on 11-28-2021 MCV (RBC) [Entitic vol] 88.7 fL 81-99 [facility] Work Phone: [phone] Hematocrit Auto (Bld) [Volum e fraction]on 11-28-2021 Hematocrit (Bld) [Volume fraction] 35.2 % 37-47 [facility] Work Phone: [phone] Laboratory - Chemistry and C hemistry - challengeon 11-28-2021 CO2 [Moles/Vol] 25.0 mmol/L 21.0-32.0 [facility] Work Phone: [phone] Urea nitrogen/Creatinine [Mass ratio] 10.9 mg/mg 10-20 [facility] Work Phone: [phone] Laboratory - Hematology and Cell countson 11-28-2021 Erythrocyte distribution width (RBC) [Entitic vol] 45.2 fL 35.1-43.9 [facility] Work Phone: Erythrocyte distribution width (RBC) [Ratio] 13.9 % 11.6-14.6 [facility] Work Phone: MCH (RBC) [Entitic mass] 28.7 pg 27.0-32.0 [facility] Work Phone: [phone] MCHC Auto (RBC) [Mass/Vol]on 11-28-2021 MCHC (RBC) [Mass/Vol] 32.4 g/dL 32-36 [facility] Work Phone: No Panel Informationon 11-28 Estimated GFR (MDRD) Amer 171 mL/min >60 [facility] Work Phone: Comment on above: GFR Calc Estimated GFR (MDRD) Non-Af Amer 141 mL/min >60 [facility] Work Phone: Comment on above: Non- GFR Calc Platelets bldon 11-28-2021 Platelets (Bld) [#/Vol] 339 10*3/uL 150-450 [facility] Work Phone: Serum or plasma calcium rajni urement (mass/volume)on 11-28-2021 Calcium [Mass/Vol] 9.1 mg/dL 8.5-10.1 [facility] Work Phone: [phone] Serum or plasma creatinine m easurement (mass/volume)on 11-28-2021 Creatinine [Mass/Vol] 0.46 mg/dL 0.55-1.02 [facility] Work Phone: Comment on above: The validity of the calculated GFR & GFRAA in patients over 70 years has not been determined. Clinical correlation is essential. Serum or plasma urea nitroge n measurement (mass/volume)on 11-28-2021 Urea nitrogen [Mass/Vol] 5 mg/dL 7-18 [facility] Work Phone: Thin prep Papanicolaou smear with manual screeningon 11-28-2021 Thin prep Papanicolaou smear with manual screening 9 5-15 [facility] Work Phone: Basophil percentageon 2021 Chloride [Moles/Vol] 102 mmol/L 98-107 [facility] Work Phone: [phone] Glucose [Mass/Vol] 103 mg/dL 74-106 [facility] Work Phone: [phone] Comment on above: Fasting Glucose resu lt from 100 to 125 mg/dL suggests IMPAIRED HOMEOSTASIS per A.D.A. criteria. Potassium [Moles/Vol] 3.2 mmol/L 3.5-5.1 [facility] Work Phone: [phone] Sodium [Moles/Vol] 136 mmol/L 136-145 [facility] Work Phone: [phone] WBC (Bld) [#/Vol] 9.2 10*3/uL 4.4-11.0 [facility] Work Phone: Blood erythrocytes count (nu mber/volume)on 11-21-2021 RBC (Bld) [#/Vol] 3.66 10*6/uL 4.2-5.4 [facility] Work Phone: [phone] Blood hemoglobin measurement (mass/volume)on 11-21-2021 Hemoglobin (Bld) [Mass/Vol] 10.6 g/dL 12.0-15.0 [facility] Work Phone: [phone] Blood platelet mean volumeon 11-21-2021 Platelet mean volume (Bld) [Entitic vol] 11.6 fL 6.2-12.0 [facility] Work Phone: [phone] Determination of erythrocyte mean corpuscular volume (MCV)on 11-21-2021 MCV (RBC) [Entitic vol] 91.8 fL 81-99 [facility] Work Phone: [phone] Hematocrit Auto (Bld) [Volum e fraction]on 11-21-2021 Hematocrit (Bld) [Volume fraction] 33.6 % 37-47 [facility] Work Phone: [phone] Laboratory - Chemistry and C hemistry - challengeon 11-21-2021 CO2 [Moles/Vol] 30.0 mmol/L 21.0-32.0 [facility] Work Phone: [phone] Urea nitrogen/Creatinine [Mass ratio] 14.3 mg/mg 10-20 [facility] Work Phone: [phone] Laboratory - Hematology and Cell countson 11-21-2021 Erythrocyte distribution width (RBC) [Entitic vol] 48.1 fL 35.1-43.9 [facility] Work Phone: [phone] Erythrocyte distribution width (RBC) [Ratio] 14.2 % 11.6-14.6 [facility] Work Phone: [phone] MCH (RBC) [Entitic mass] 29.0 pg 27.0-32.0 [facility] Work Phone: [phone] MCHC Auto (RBC) [Mass/Vol]on 11-21-2021 MCHC (RBC) [Mass/Vol] 31.5 g/dL 32-36 [facility] Work Phone: No Panel Informationon 11-21 Estimated GFR (MDRD) Amer 189 mL/min >60 [facility] Work Phone: Comment on above: GFR Calc Estimated GFR (MDRD) Non-Af Amer 156 mL/min >60 [facility] Work Phone: Comment on above: Non- GFR Calc Platelets bldon 11-21-2021 Platelets (Bld) [#/Vol] 382 10*3/uL 150-450 [facility] Work Phone: [phone] Serum or plasma calcium rajni urement (mass/volume)on 11-21-2021 Calcium [Mass/Vol] 9.2 mg/dL 8.5-10.1 [facility] Work Phone: [phone] Serum or plasma creatinine m easurement (mass/volume)on 11-21-2021 Creatinine [Mass/Vol] 0.42 mg/dL 0.55-1.02 [facility] Work Phone: [phone] Comment on above: The validity of the calculated GFR & GFRAA in patients over 70 years has not been determined. Clinical correlation is essential. Serum or plasma urea nitroge n measurement (mass/volume)on 11-21-2021 Urea nitrogen [Mass/Vol] 6 mg/dL 7-18 [facility] Work Phone: [phone] Thin prep Papanicolaou smear with manual screeningon 11-21-2021 Thin prep Papanicolaou smear with manual screening 4 5-15 [facility] Work Phone: [phone] Basophil percentageon 2021 Chloride [Moles/Vol] 101 mmol/L 98-107 [facility] Work Phone: [phone] Glucose [Mass/Vol] 94 mg/dL 74-106 [facility] Work Phone: [phone] Potassium [Moles/Vol] 4.1 mmol/L 3.5-5.1 [facility] Work Phone: [phone] Sodium [Moles/Vol] 136 mmol/L 136-145 [facility] Work Phone: [phone] WBC (Bld) [#/Vol] 10.6 10*3/uL 4.4-11.0 [facility] Work Phone: [phone] Blood erythrocytes count (nu mber/volume)on 11-14-2021 RBC (Bld) [#/Vol] 3.93 10*6/uL 4.2-5.4 [facility] Work Phone: [phone] Blood hemoglobin measurement (mass/volume)on 11-14-2021 Hemoglobin (Bld) [Mass/Vol] 11.6 g/dL 12.0-15.0 [facility] Work Phone: [phone] Blood platelet mean volumeon 11-14-2021 Platelet mean volume (Bld) [Entitic vol] 11.8 fL 6.2-12.0 [facility] Work Phone: [phone] Determination of erythrocyte mean corpuscular volume (MCV)on 11-14-2021 MCV (RBC) [Entitic vol] 96.2 fL 81-99 [facility] Work Phone: [phone] Hematocrit Auto (Bld) [Volum e fraction]on 11-14-2021 Hematocrit (Bld) [Volume fraction] 37.8 % 37-47 [facility] Work Phone: [phone] Laboratory - Chemistry and C hemistry - challengeon 11-14-2021 CO2 [Moles/Vol] 26.0 mmol/L 21.0-32.0 [facility] Work Phone: [phone] Urea nitrogen/Creatinine [Mass ratio] 11.9 mg/mg 10-20 [facility] Work Phone: [phone] Laboratory - Hematology and Cell countson 11-14-2021 Erythrocyte distribution width (RBC) [Entitic vol] 51.3 fL 35.1-43.9 [facility] Work Phone: [phone] Erythrocyte distribution width (RBC) [Ratio] 14.5 % 11.6-14.6 [facility] Work Phone: [phone] MCH (RBC) [Entitic mass] 29.5 pg 27.0-32.0 [facility] Work Phone: [phone] MCHC Auto (RBC) [Mass/Vol]on 11-14-2021 MCHC (RBC) [Mass/Vol] 30.7 g/dL 32-36 [facility] Work Phone: [phone] No Panel Informationon 11-14 Estimated GFR (MDRD) Amer 153 mL/min >60 [facility] Work Phone: [phone] Comment on above: GFR Calc Estimated GFR (MDRD) Non-Af Amer 126 mL/min >60 [facility] Work Phone: [phone] Comment on above: Non- GFR Calc Platelets bldon 11-14-2021 Platelets (Bld) [#/Vol] 473 10*3/uL 150-450 [facility] Work Phone: [phone] Serum or plasma calcium rajni urement (mass/volume)on 11-14-2021 Calcium [Mass/Vol] 9.7 mg/dL 8.5-10.1 [facility] Work Phone: Serum or plasma creatinine m easurement (mass/volume)on 11-14-2021 Creatinine [Mass/Vol] 0.50 mg/dL 0.55-1.02 [facility] Work Phone: Comment on above: The validity of the calculated GFR & GFRAA in patients over 70 years has not been determined. Clinical correlation is essential. Serum or plasma urea nitroge n measurement (mass/volume)on 11-14-2021 Urea nitrogen [Mass/Vol] 6 mg/dL 7-18 [facility] Work Phone: Thin prep Papanicolaou smear with manual screeningon 11-14-2021 Thin prep Papanicolaou smear with manual screening 9 5-15 [facility] Work Phone: Basophil percentageon 2021 Basophil percentage 0-5 SEEN /hpf 0-5 [facility] Work Phone: Bilirubin Test strip Ql (U)o n 11-09-2021 Bilirubin Ql (U) Negative Negative [facility] Work Phone: Ketones Test strip Ql (U)on 11-09-2021 Ketones Ql (U) Negative Negative [facility] Work Phone: Mucus LM Ql (Urine sed)on Mucus Ql (Urine sed) 0 SEEN /hpf [facility] Work Phone: Nitrite Test strip Ql (U)on 11-09-2021 Nitrite Ql (U) Positive Negative [facility] Work Phone: Protein Test strip Ql (U)on 11-09-2021 Protein Ql (U) Negative Negative [facility] Work Phone: Squamous epithelial cells de tection in urine sediment by light microscopyon 11-09-2021 Epithelial cells.squamous LM Ql (Urine sed) 0-5 SEEN /hpf 5-10 [facility] Work Phone: Urine blood detectionon 07- RBC Ql (U) 10 /ul Negative [facility] Work Phone: RBC Ql (U) 0 SEEN /hpf 0-5 [facility] Work Phone: Urine clarityon 11-09-2021 Clarity (U) Clear Clear [facility] Work Phone: Urine color determinationon 11-09-2021 Color (U) Yellow Yellow [facility] Work Phone: Urine glucose detectionon Glucose Ql (U) Normal mg/dl Normal [facility] Work Phone: Urine leukocyte esterase det ection by dipstickon 11-09-2021 Leukocyte esterase Test strip Ql (U) 500 /ul Negative [facility] Work Phone: Urine pHon 11-09-2021 pH (U) 7.0 [pH] 5.0 - 8.0 [facility] Work Phone: Urine sediment bacteria coun t by microscopy (number/high power field)on 11-09-2021 Bacteria LM.HPF (Urine sed) [#/Area] 0 /[HPF] None Seen [facility] Work Phone: Urine specific gravity measu rementon 11-09-2021 Specific gravity (U) [Rel density] 1.010 1.002-1.030 [facility] Work Phone: Urobilinogen Auto test strip Ql (U)on 11-09-2021 Urobilinogen Ql (U) Normal mg/dl Normal [facility] Work Phone: Basophil percentageon 2021 Chloride [Moles/Vol] 102 mmol/L 98-107 [facility] Work Phone: Glucose [Mass/Vol] 113 mg/dL 74-106 [facility] Work Phone: Comment on above: Fasting Glucose resu lt from 100 to 125 mg/dL suggests IMPAIRED HOMEOSTASIS per A.D.A. criteria. Potassium [Moles/Vol] 3.4 mmol/L 3.5-5.1 [facility] Work Phone: Sodium [Moles/Vol] 137 mmol/L 136-145 [facility] Work Phone: WBC (Bld) [#/Vol] 9.7 10*3/uL 4.4-11.0 [facility] Blood erythrocytes count (nu mber/volume)on 11-07-2021 RBC (Bld) [#/Vol] 3.32 10*6/uL 4.2-5.4 [facility]: [phone] Blood hemoglobin measurement (mass/volume)on 11-07-2021 Hemoglobin (Bld) [Mass/Vol] 9.9 g/dL 12.0-15.0 [facility] Work Phone: [phone] Blood platelet mean volumeon 11-07-2021 Platelet mean volume (Bld) [Entitic vol] 10.3 fL 6.2-12.0 [facility] Work Phone: [phone] Determination of erythrocyte mean corpuscular volume (MCV)on 11-07-2021 MCV (RBC) [Entitic vol] 94.9 fL 81-99 [facility] Work Phone: [phone] Hematocrit Auto (Bld) [Volum e fraction]on 11-07-2021 Hematocrit (Bld) [Volume fraction] 31.5 % 37-47 [facility] Work Phone: Laboratory - Chemistry and C hemistry - challengeon 11-07-2021 CO2 [Moles/Vol] 29.0 mmol/L 21.0-32.0 [facility] Work Phone: [phone] Urea nitrogen/Creatinine [Mass ratio] 17.7 mg/mg 10-20 [facility] Work Phone: [phone] Laboratory - Hematology and Cell countson 11-07-2021 Erythrocyte distribution width (RBC) [Entitic vol] 49.9 fL 35.1-43.9 [facility] Work Phone: [phone] Erythrocyte distribution width (RBC) [Ratio] 14.2 % 11.6-14.6 [facility] Work Phone: [phone] MCH (RBC) [Entitic mass] 29.8 pg 27.0-32.0 [facility] Work Phone: MCHC Auto (RBC) [Mass/Vol]on 11-07-2021 MCHC (RBC) [Mass/Vol] 31.4 g/dL 32-36 [facility] Work Phone: No Panel Informationon 11-07 Estimated GFR (MDRD) Amer 203 mL/min >60 [facility] Work Phone: Comment on above: GFR Calc Estimated GFR (MDRD) Non-Af Amer 168 mL/min >60 [facility] Work Phone: Comment on above: Non- GFR Calc Platelets bldon 11-07-2021 Platelets (Bld) [#/Vol] 357 10*3/uL 150-450 [facility] Work Phone: Serum or plasma calcium rajni urement (mass/volume)on 11-07-2021 Calcium [Mass/Vol] 8.8 mg/dL 8.5-10.1 [facility] Work Phone: Serum or plasma creatinine m easurement (mass/volume)on 11-07-2021 Creatinine [Mass/Vol] 0.40 mg/dL 0.55-1.02 [facility] Work Phone: Comment on above: The validity of the calculated GFR & GFRAA in patients over 70 years has not been determined. Clinical correlation is essential. Serum or plasma urea nitroge n measurement (mass/volume)on 11-07-2021 Urea nitrogen [Mass/Vol] 7 mg/dL 7-18 [facility] Work Phone: Thin prep Papanicolaou smear with manual screeningon 11-07-2021 Thin prep Papanicolaou smear with manual screening 6 5-15 [facility] Work Phone: CNOVon 11-03-2021 CNOV Normal [facility] CNNURSEon 11-02-2021 CNNURSE Normal [facility] XR CHEST 2V FRONTAL/LATon XR CHEST 2V FRONTAL/LAT Normal [facility] Basophil percentageon 2021 Chloride [Moles/Vol] 99 mmol/L 98-107 [facility] Work Phone: Glucose [Mass/Vol] 107 mg/dL 74-106 [facility] Work Phone: Comment on above: Fasting Glucose resu lt from 100 to 125 mg/dL suggests IMPAIRED HOMEOSTASIS per A.D.A. criteria. Potassium [Moles/Vol] 3.5 mmol/L 3.5-5.1 [facility] Work Phone: Sodium [Moles/Vol] 135 mmol/L 136-145 [facility] Work Phone: [phone] WBC (Bld) [#/Vol] 12.1 10*3/uL 4.4-11.0 [facility] Work Phone: [phone] Blood erythrocytes count (nu mber/volume)on 10-31-2021 RBC (Bld) [#/Vol] 3.12 10*6/uL 4.2-5.4 [facility] Work Phone: Blood hemoglobin measurement (mass/volume)on 10-31-2021 Hemoglobin (Bld) [Mass/Vol] 9.3 g/dL 12.0-15.0 [facility] Work Phone: Blood platelet mean volumeon 10-31-2021 Platelet mean volume (Bld) [Entitic vol] 9.8 fL 6.2-12.0 [facility] Work Phone: [phone] Determination of erythrocyte mean corpuscular volume (MCV)on 10-31-2021 MCV (RBC) [Entitic vol] 96.2 fL 81-99 [facility] Work Phone: [phone] Hematocrit Auto (Bld) [Volum e fraction]on 10-31-2021 Hematocrit (Bld) [Volume fraction] 30.0 % 37-47 [facility] Work Phone: Laboratory - Chemistry and C hemistry - challengeon 10-31-2021 CO2 [Moles/Vol] 26.0 mmol/L 21.0-32.0 [facility] Work Phone: Urea nitrogen/Creatinine [Mass ratio] 14.1 mg/mg 10-20 [facility] Work Phone: [phone] Laboratory - Hematology and Cell countson 10-31-2021 Erythrocyte distribution width (RBC) [Entitic vol] 50.3 fL 35.1-43.9 [facility] Work Phone: Erythrocyte distribution width (RBC) [Ratio] 14.3 % 11.6-14.6 [facility] Work Phone: MCH (RBC) [Entitic mass] 29.8 pg 27.0-32.0 [facility] Work Phone: MCHC Auto (RBC) [Mass/Vol]on 10-31-2021 MCHC (RBC) [Mass/Vol] 31.0 g/dL 32-36 [facility] Work Phone: No Panel Informationon 10-31 Estimated GFR (MDRD) Amer 157 mL/min >60 [facility] Work Phone: Comment on above: GFR Calc Estimated GFR (MDRD) Non-Af Amer 129 mL/min >60 [facility] Work Phone: Comment on above: Non- GFR Calc Platelets bldon 10-31-2021 Platelets (Bld) [#/Vol] 459 10*3/uL 150-450 [facility] Work Phone: Serum or plasma calcium rajni urement (mass/volume)on 10-31-2021 Calcium [Mass/Vol] 7.8 mg/dL 8.5-10.1 [facility] Work Phone: [phone] Serum or plasma creatinine m easurement (mass/volume)on 10-31-2021 Creatinine [Mass/Vol] 0.50 mg/dL 0.55-1.02 [facility] Work Phone: Comment on above: The validity of the calculated GFR & GFRAA in patients over 70 years has not been determined. Clinical correlation is essential. Serum or plasma urea nitroge n measurement (mass/volume)on 10-31-2021 Urea nitrogen [Mass/Vol] 7 mg/dL 7-18 [facility] Work Phone: Thin prep Papanicolaou smear with manual screeningon 10-31-2021 Thin prep Papanicolaou smear with manual screening 10 5-15 [facility] Work Phone: CT BRAIN WO IVCONon 10-31-19 [facility] Basophil percentageon 2021 Chloride [Moles/Vol] 98 mmol/L 98-107 [facility] Work Phone: Glucose [Mass/Vol] 150 mg/dL 74-106 [facility] Work Phone: Comment on above: Fasting Glucose resu lt greater than or equal to 126 mg/dL suggests DIABETES MELLITUS per A.D.A. criteria. Potassium [Moles/Vol] 3.2 mmol/L 3.5-5.1 [facility] Work Phone: Sodium [Moles/Vol] 136 mmol/L 136-145 [facility] Work Phone: Laboratory - Chemistry and C hemistry - challengeon 10-27-2021 CO2 [Moles/Vol] 31.0 mmol/L 21.0-32.0 [facility] Work Phone: Urea nitrogen/Creatinine [Mass ratio] 7.4 mg/mg 10-20 [facility] Work Phone: No Panel Informationon 10-27 Estimated GFR (MDRD) Amer 143 mL/min >60 [facility] Work Phone: Comment on above: GFR Calc Estimated GFR (MDRD) Non-Af Amer 118 mL/min >60 [facility] Work Phone: Comment on above: Non- GFR Calc Serum or plasma calcium rajni urement (mass/volume)on 10-27-2021 Calcium [Mass/Vol] 7.1 mg/dL 8.5-10.1 [facility] Work Phone: Serum or plasma creatinine m easurement (mass/volume)on 10-27-2021 Creatinine [Mass/Vol] 0.54 mg/dL 0.55-1.02 [facility] Work Phone: Comment on above: The validity of the calculated GFR & GFRAA in patients over 70 years has not been determined. Clinical correlation is essential. Serum or plasma urea nitroge n measurement (mass/volume)on 10-27-2021 Urea nitrogen [Mass/Vol] 4 mg/dL 7-18 [facility] Work Phone: Thin prep Papanicolaou smear with manual screeningon 10-27-2021 Thin prep Papanicolaou smear with manual screening 7 5-15 [facility] Work Phone: Basophil percentageon 2021 Chloride [Moles/Vol] 95 mmol/L 98-107 [facility] Work Phone: [phone] Glucose [Mass/Vol] 90 mg/dL 74-106 [facility] Work Phone: [phone] Potassium [Moles/Vol] 3.4 mmol/L 3.5-5.1 [facility] Work Phone: Sodium [Moles/Vol] 130 mmol/L 136-145 [facility] Work Phone: [phone] WBC (Bld) [#/Vol] 12.7 10*3/uL 4.4-11.0 [facility] Work Phone: [phone] Blood erythrocytes count (nu mber/volume)on 10-24-2021 RBC (Bld) [#/Vol] 2.63 10*6/uL 4.2-5.4 [facility] Work Phone: [phone] Blood hemoglobin measurement (mass/volume)on 10-24-2021 Hemoglobin (Bld) [Mass/Vol] 8.3 g/dL 12.0-15.0 [facility] Work Phone: [phone] Blood platelet mean volumeon 10-24-2021 Platelet mean volume (Bld) [Entitic vol] 9.4 fL 6.2-12.0 [facility] Work Phone: Determination of erythrocyte mean corpuscular volume (MCV)on 10-24-2021 MCV (RBC) [Entitic vol] 93.9 fL 81-99 [facility] Work Phone: [phone] Hematocrit Auto (Bld) [Volum e fraction]on 10-24-2021 Hematocrit (Bld) [Volume fraction] 24.7 % 37-47 [facility] Work Phone: [phone] Laboratory - Chemistry and C hemistry - challengeon 10-24-2021 CO2 [Moles/Vol] 27.0 mmol/L 21.0-32.0 [facility] Work Phone: [phone] Urea nitrogen/Creatinine [Mass ratio] 25.4 mg/mg 10-20 [facility] Work Phone: [phone] Laboratory - Hematology and Cell countson 10-24-2021 Erythrocyte distribution width (RBC) [Entitic vol] 47.5 fL 35.1-43.9 [facility] Work Phone: [phone] Erythrocyte distribution width (RBC) [Ratio] 13.9 % 11.6-14.6 [facility] Work Phone: [phone] MCH (RBC) [Entitic mass] 31.6 pg 27.0-32.0 [facility] Work Phone: [phone] MCHC Auto (RBC) [Mass/Vol]on 10-24-2021 MCHC (RBC) [Mass/Vol] 33.6 g/dL 32-36 [facility] Work Phone: [phone] No Panel Informationon 10-24 Estimated GFR (MDRD) Amer 230 mL/min >60 [facility] Work Phone: [phone] Comment on above: GFR Calc Estimated GFR (MDRD) Non-Af Amer 190 mL/min >60 [facility] Work Phone: [phone] Comment on above: Non- GFR Calc Platelets bldon 10-24-2021 Platelets (Bld) [#/Vol] 529 10*3/uL 150-450 [facility] Work Phone: [phone] Serum or plasma calcium rajni urement (mass/volume)on 10-24-2021 Calcium [Mass/Vol] 7.9 mg/dL 8.5-10.1 [facility] Work Phone: Serum or plasma creatinine m easurement (mass/volume)on 10-24-2021 Creatinine [Mass/Vol] 0.35 mg/dL 0.55-1.02 [facility] Work Phone: Comment on above: The validity of the calculated GFR & GFRAA in patients over 70 years has not been determined. Clinical correlation is essential. Serum or plasma urea nitroge n measurement (mass/volume)on 10-24-2021 Urea nitrogen [Mass/Vol] 9 mg/dL 7-18 [facility] Work Phone: Thin prep Papanicolaou smear with manual screeningon 10-24-2021 Thin prep Papanicolaou smear with manual screening 8 5-15 [facility] Work Phone: CNPNon 10-20-2021 CNPN Normal [facility] ALLIED HEALTHon 10-17-2021 ALLIED HEALTH Normal [facility] Basic metabolic 2000 panelon 10-17-2021 Anion gap [Moles/Vol] 12 mmol/L Normal 9-18 [facility] Comment on above: Order Comment: Speci men Type: BLOOD SPECIMENOrdering Facility: [facility] Address: [address] [place] [address] Performed By: #### 2 4321-2 ####[facility]ORYCLIA [id number] [place] [address] [place] Calcium [Mass/Vol] 6.5 mg/dL Low 8.5-10.2 [facility] Comment on above: Order Comment: Speci men Type: BLOOD SPECIMENOrdering Facility: [facility] Address: [address] [place] [address] Performed By: #### 2 4321-2 ####[facility]ATORYCLIA [id number] [place] [address] [place] Chloride [Moles/Vol] 95 mmol/L Low 97-105 [facility] Comment on above: Order Comment: Speci men Type: BLOOD SPECIMENOrdering Facility: [facility] Address: [address] [place] [address] Performed By: #### 2 4321-2 ####[facility]ORYCLIA [id number] [address] [place] CO2 [Moles/Vol] 25 mmol/L Normal 22-30 [facility] Comment on above: Order Comment: Speci men Type: BLOOD SPECIMENOrdering Facility: [facility] Address: [address] [place] [address] Performed By: #### 2 4321-2 ####[facility]ORYCLIA [id number] [address] [place] Creatinine [Mass/Vol] 0.44 mg/dL Low 0.58-0.96 [facility] Comment on above: Order Comment: Speci men Type: BLOOD SPECIMENOrdering Facility: [facility] Address: [address] [place] [address] Performed By: #### 2 4321-2 ####[facility]ORYCLIA [id number] [address] ESTIMATED GLOMERULAR FILTRATION RATE 102 mL/min/1.73m??? Normal >=60 [facility] Comment on above: Order Comment: Speci men Type: BLOOD SPECIMENOrdering Facility: [facility] Address: [address] [place] [address] Result Comment: Lulu mated Glomerular Filtration Rate [...] [facility] [id number] [address] [place] Glucose [Mass/Vol] 122 mg/dL High 74-99 [facility] Comment on above: Order Comment: Speci men Type: BLOOD SPECIMENOrdering Facility: [facility] Address: [address] Result Comment: The [place] [employer] (ADA) provides guidance for cutoff [...] Standards of Medical Care in Diabetes 2016, [place] [employer]. Diabetes Care. 2016.39(Suppl 1). Performed By: #### 2 4321-2 ####[facility]ORYCLIA [id number] [place] [address] [place] Potassium [Moles/Vol] 3.7 mmol/L Normal 3.7-5.1 [facility] Comment on above: Order Comment: Sharath men Type: BLOOD SPECIMENOrdering Facility: [facility] Address: [address] [place] [address] Performed By: #### 2 4321-2 ####[facility]ORYCLIA [id number] [place] [address] [place] Sodium [Moles/Vol] 132 mmol/L Low 136-144 [facility] Comment on above: Order Comment: Speci men Type: BLOOD SPECIMENOrdering Facility: [facility] Address: [address] Performed By: #### 2 4321-2 ####[facility]ORYCLIA [id number] [place] [address] [place] Urea nitrogen [Mass/Vol] 10 mg/dL Normal 7-21 [facility] Comment on above: Order Comment: Speci men Type: BLOOD SPECIMENOrdering Facility: [facility] Address: [address] Performed By: #### 2 4321-2 ####[facility]ORYCLIA [id number] [address] CASE MANAGEMon 10-17-2021 CASE MANAGEM Normal [facility] CASE MANAGEM Normal [facility] CBC panel Auto (Bld)on 10-17 Erythrocyte distribution width (RBC) [Ratio] 13.6 % Normal 11.5-15.0 [facility] Comment on above: Order Comment: Speci men Type: BLOOD SPECIMENOrdering Facility: [facility] Address: [address] [place] [address] Performed By: #### 5 8410-2 ####[facility]ORYCLIA [id number] [address] Hematocrit (Bld) [Volume fraction] 25.2 % Low 36.0-46.0 [facility] Comment on above: Order Comment: Speci men Type: BLOOD SPECIMENOrdering Facility: [facility] Address: [address] [place] [address] Performed By: #### 5 8410-2 ####[facility]ORYCLIA [id number] [address] Hemoglobin (Bld) [Mass/Vol] 8.6 g/dL Low 11.5-15.5 [facility] Comment on above: Order Comment: Speci men Type: BLOOD SPECIMENOrdering Facility: [facility] Address: [address] [place] [address] Performed By: #### 5 8410-2 ####[facility]ORYCLIA [id number] [address] [place] [facility] MCH (RBC) [Entitic mass] 32.2 pg Normal 26.0-34.0 [facility] Comment on above: Order Comment: Speci men Type: BLOOD SPECIMENOrdering Facility: [facility] Address: [facility] [place] [address] Performed By: #### 5 8410-2 ####[facility]ORYCLIA [id number] [address] STATES OF [facility] MCHC (RBC) [Mass/Vol] 34.1 g/dL Normal 30.5-36.0 [facility] Comment on above: Order Comment: Speci men Type: BLOOD SPECIMENOrdering Facility: [facility] Address: [address] [place] [address] Performed By: #### 5 8410-2 ####[facility]ORYCLIA [id number] [address] [place] MCV (RBC) [Entitic vol] 94.4 fL Normal 80.0-100.0 [facility] Comment on above: Order Comment: Speci men Type: BLOOD SPECIMENOrdering Facility: [facility] Address: [address] [place] [address] Performed By: #### 5 8410-2 ####[facility]ORYCLIA [id number] [address] Nucleated RBC (Bld) [#/Vol] 10*3/uL Normal <0.01 [facility] Comment on above: Order Comment: Speci men Type: BLOOD SPECIMENOrdering Facility: [facility] Address: [address] [place] [address] Performed By: #### 5 8410-2 ####[facility]ORYCLIA [id number] [address] [place] Platelet mean volume (Bld) [Entitic vol] 8.9 fL Low 9.0-12.7 [facility] Comment on above: Order Comment: Speci men Type: BLOOD SPECIMENOrdering Facility: [facility] Address: [address] [place] [address] Performed By: #### 5 8410-2 ####[facility]ORYCLIA [id number] [address] [place] Platelets (Bld) [#/Vol] 519 10*3/uL High 150-400 [facility] Comment on above: Order Comment: Speci men Type: BLOOD SPECIMENOrdering Facility: [facility] Address: [address] [place] [address] Performed By: #### 5 8410-2 ####[facility]ORYCLIA [id number] [address] OF [facility] RBC (Bld) [#/Vol] 2.67 10*6/uL Low 3.90-5.20 [facility] Comment on above: Order Comment: Speci men Type: BLOOD SPECIMENOrdering Facility: [facility] Address: [address] [place] [address] Performed By: #### 5 8410-2 ####[facility]ORYCLIA [id number] [address] WBC (Bld) [#/Vol] 19.03 10*3/uL High 3.70-11.00 [facility] Comment on above: Order Comment: Speci men Type: BLOOD SPECIMENOrdering Facility: [facility] Address: [address] [place] [address] Performed By: #### 5 8410-2 ####[facility]ORYCLIA [id number] [address] CNDSon 10-17-2021 CNDS Normal [facility] SARS-CoV-2 RNA Resp Ql LEONA+p robeon 10-17-2021 SARS-CoV-2 (COVID-19) RNA LEONA+probe Ql (Resp) COVID 19 RESULT: SARS-CoV-2 (Agent of COVID-19) Not Detected by RT-PCR or equivalent method. This test has been authorized by FDA under an Emergency Use Authorization (EUA). Normal [facility] Comment on above: Performed By: #### 9 4500-6 ####[facility]ORYCLIA [id number] [address] XR CHEST 1V FRONTALon 2021 XR CHEST 1V FRONTAL Normal [facility] Basic metabolic 2000 panelon 10-16-2021 Anion gap [Moles/Vol] 11 mmol/L Normal 9-18 [facility] Comment on above: Order Comment: Speci men Type: BLOOD SPECIMENOrdering Facility: [facility] [facility] Address: [address] [place] [address] Performed By: #### 2 4321-2 ####[facility]ATORYCLIA [id number] [place] [address] [place] Calcium [Mass/Vol] 7.0 mg/dL Low 8.5-10.2 [facility] Comment on above: Order Comment: Speci men Type: BLOOD SPECIMENOrdering Facility: [facility] Address: [address] [place] [address] Performed By: #### 2 4321-2 ####[facility]ATORYCLIA [id number] [address] [place] Chloride [Moles/Vol] 95 mmol/L Low 97-105 [facility] Comment on above: Order Comment: Speci men Type: BLOOD SPECIMENOrdering Facility: [facility] Address: [address] [place] [address] Performed By: #### 2 4321-2 ####[facility]ATORYCLIA [id number] [address] [place] CO2 [Moles/Vol] 26 mmol/L Normal 22-30 [facility] Comment on above: Order Comment: Speci men Type: BLOOD SPECIMENOrdering Facility: [facility] Address: [address] [place] [address] Performed By: #### 2 4321-2 ####[facility]ATORYCLIA [id number] [address] [place] Creatinine [Mass/Vol] 0.38 mg/dL Low 0.58-0.96 [facility] Comment on above: Order Comment: Speci men Type: BLOOD SPECIMENOrdering Facility: [facility] Address: [address] [place] [address] Performed By: #### 2 4321-2 ####[facility]ORATORYCLIA [id number] [place] [address] [place] ESTIMATED GLOMERULAR FILTRATION RATE 105 mL/min/1.73m??? Normal >=60 [facility] Comment on above: Order Comment: Sharath lozano Type: BLOOD SPECIMENOrdering Facility: [facility] Address: [address] [place] [address] Result Comment: Lulu mated Glomerular Filtration Rate [...] [facility]ORYCLIA [id number] [place] [address] [place] Glucose [Mass/Vol] 120 mg/dL High 74-99 [facility] Comment on above: Order Comment: Sharath lozano Type: BLOOD SPECIMENOrdering Facility: [facility] Address: [address] [place] [address] Result Comment: The [place] Diabetes Association (ADA) provides guidance for cutoff [...] Standards of Medical Care in Diabetes 2016, [place]. Diabetes Care. 2016.39(Suppl 1). Performed By: #### 2 4321-2 ####[facility]ATORYCLIA [id number] [place] [address] [place] Potassium [Moles/Vol] 3.6 mmol/L Low 3.7-5.1 [facility] Comment on above: Order Comment: Sharath lozano Type: BLOOD SPECIMENOrdering Facility: [facility] Address: [address] [address] Performed By: #### 2 4321-2 ####[facility]ATORYCLIA [id number] [address] [place] [facility] Sodium [Moles/Vol] 132 mmol/L Low 136-144 [facility] Comment on above: Order Comment: Speci men Type: BLOOD SPECIMENOrdering Facility: [facility] Address: [address] [place] [address] Performed By: #### 2 4321-2 ####[facility]ORYCLIA [id number] [address] [place] Urea nitrogen [Mass/Vol] 11 mg/dL Normal 7-21 [facility] Comment on above: Order Comment: Speci men Type: BLOOD SPECIMENOrdering Facility: [facility] Address: [address] [place] [address] Performed By: #### 2 4321-2 ####[facility]ATORYCLIA [id number] [address] [place] CASE MANAGEMon 10-16-2021 CASE MANAGEM Normal [facility] CASE MANAGEM Normal [facility] CBC panel Auto (Bld)on 10-16 Erythrocyte distribution width (RBC) [Ratio] 13.6 % Normal 11.5-15.0 [facility] Comment on above: Order Comment: Speci men Type: BLOOD SPECIMENOrdering Facility: [facility] Address: [address] [place] [address] Performed By: #### 5 8410-2 ####[facility]ATORYCLIA [id number] [address] [place] Hematocrit (Bld) [Volume fraction] 25.6 % Low 36.0-46.0 [facility] Comment on above: Order Comment: Speci men Type: BLOOD SPECIMENOrdering Facility: [facility] Address: [address] [place] [address] Performed By: #### 5 8410-2 ####[facility]ATORYCLIA [id number] [address] OF [facility] Hemoglobin (Bld) [Mass/Vol] 8.7 g/dL Low 11.5-15.5 [facility] Comment on above: Order Comment: Speci men Type: BLOOD SPECIMENOrdering Facility: [facility] Address: [address] [place] [address] Performed By: #### 5 8410-2 ####[facility]ATORYCLIA [id number] [address] MCH (RBC) [Entitic mass] 32.0 pg Normal 26.0-34.0 [facility] Comment on above: Order Comment: Speci men Type: BLOOD SPECIMENOrdering Facility: [facility] Address: [address] [place] [address] Performed By: #### 5 8410-2 ####[facility]ATORYCLIA [id number] [address] MCHC (RBC) [Mass/Vol] 34.0 g/dL Normal 30.5-36.0 [facility] Comment on above: Order Comment: Speci men Type: BLOOD SPECIMENOrdering Facility: [facility] Address: [address] [place] [address] Performed By: #### 5 8410-2 ####[facility]ATORYCLIA [id number] [address] MCV (RBC) [Entitic vol] 94.1 fL Normal 80.0-100.0 [facility] Comment on above: Order Comment: Speci men Type: BLOOD SPECIMENOrdering Facility: [facility] Address: [address] [place] [address] Performed By: #### 5 8410-2 ####[facility]ATORYCLIA [id number] [address] Nucleated RBC (Bld) [#/Vol] 10*3/uL Normal <0.01 [facility] Comment on above: Order Comment: Speci men Type: BLOOD SPECIMENOrdering Facility: [facility] Address: [address] [place] [address] Performed By: #### 5 8410-2 ####[facility]ATORYCLIA [id number] [address] Platelet mean volume (Bld) [Entitic vol] 8.8 fL Low 9.0-12.7 [facility] Comment on above: Order Comment: Speci men Type: BLOOD SPECIMENOrdering Facility: [facility] Address: [address] [place] [address] Performed By: #### 5 8410-2 ####[facility]ATORYCLIA [id number] [address] OF [place] Platelets (Bld) [#/Vol] 465 10*3/uL High 150-400 [facility] Comment on above: Order Comment: Speci men Type: BLOOD SPECIMENOrdering Facility: [facility] Address: [address] [place] [address] Performed By: #### 5 8410-2 ####[facility]ORYCLIA [id number] [address] [place] RBC (Bld) [#/Vol] 2.72 10*6/uL Low 3.90-5.20 [facility] Comment on above: Order Comment: Speci men Type: BLOOD SPECIMENOrdering Facility: [facility] Address: [address] [place] [address] Performed By: #### 5 8410-2 ####[facility]ATORYCLIA [id number] [address] OF [place] WBC (Bld) [#/Vol] 17.77 10*3/uL High 3.70-11.00 [facility] Comment on above: Order Comment: Speci men Type: BLOOD SPECIMENOrdering Facility: [facility] Address: [address] [place] [address] Performed By: #### 5 8410-2 ####[facility]ATORYCLIA [id number] [place] [address] [place] CONSULT PROGon 10-16-2021 CONSULT PROG Normal [facility] THERAPY NTon 10-16-2021 THERAPY NT Normal [facility] THERAPY NT Normal [facility] Basic metabolic 2000 panelon 10-15-2021 Anion gap [Moles/Vol] 11 mmol/L Normal 9-18 [facility] Comment on above: Order Comment: Speci men Type: BLOOD SPECIMENOrdering Facility: [facility] Address: [address] [place] [address] Performed By: #### 2 4321-2 ####[facility]ATORYCLIA [id number] [place] [address] [place] Calcium [Mass/Vol] 6.8 mg/dL Low 8.5-10.2 [facility] Comment on above: Order Comment: Speci men Type: BLOOD SPECIMENOrdering Facility: [facility] Address: [address] [place] [address] Performed By: #### 2 4321-2 ####[facility]ATORYCLIA [id number] [place] [address] [place] Chloride [Moles/Vol] 97 mmol/L Normal 97-105 [facility] Comment on above: Order Comment: Speci men Type: BLOOD SPECIMENOrdering Facility: [facility] Address: [address] [place] [address] Performed By: #### 2 4321-2 ####[facility]ORYCLIA [id number] [place] [address] [place] CO2 [Moles/Vol] 26 mmol/L Normal 22-30 [facility] Comment on above: Order Comment: Speci men Type: BLOOD SPECIMENOrdering Facility: [facility] Address: [address] [place] [address] Performed By: #### 2 4321-2 ####[facility]ATORYCLIA [id number] [place] [address] [place] Creatinine [Mass/Vol] 0.44 mg/dL Low 0.58-0.96 [facility] Comment on above: Order Comment: Cathymoe lozano Type: BLOOD SPECIMENOrdering Facility: [facility] Address: [address] [address] Performed By: #### 2 4321-2 ####[facility]ATORYCLIA [id number] [address] OF [facility] ESTIMATED GLOMERULAR FILTRATION RATE 102 mL/min/1.73m??? Normal >=60 [facility] Comment on above: Order Comment: Sharath lozano Type: BLOOD SPECIMENOrdering Facility: [facility] Address: [address] Result Comment: Lulu mated Glomerular Filtration Rate [...] [facility]ORYCLIA [id number] [place] [address] [place] Glucose [Mass/Vol] 111 mg/dL High 74-99 [facility] Comment on above: Order Comment: Sharath marta Type: BLOOD SPECIMENOrdering Facility: [facility] Address: [address] [place] [address] Result Comment: The [place] Diabetes Association (ADA) provides guidance for cutoff [...] Standards of Medical Care in Diabetes 2016, [place] [employer]. Diabetes Care. 2016.39(Suppl 1). Performed By: #### 2 4321-2 ####[facility]ORYCLIA [id number] [address] [place] Potassium [Moles/Vol] 3.5 mmol/L Low 3.7-5.1 [facility] Comment on above: Order Comment: Speci men Type: BLOOD SPECIMENOrdering Facility: [facility] Address: [address] [place] [address] Performed By: #### 2 4321-2 ####[facility]ATORYCLIA [id number] [address] [place] Sodium [Moles/Vol] 134 mmol/L Low 136-144 [facility] Comment on above: Order Comment: Speci men Type: BLOOD SPECIMENOrdering Facility: [facility] Address: [address] [place] [address] Performed By: #### 2 4321-2 ####[facility]ATORYCLIA [id number] [address] Urea nitrogen [Mass/Vol] 11 mg/dL Normal 7-21 [facility] Comment on above: Order Comment: Speci men Type: BLOOD SPECIMENOrdering Facility: [facility] Address: [address] [place] [address] Performed By: #### 2 4321-2 ####[facility]ATORYCLIA [id number] [address] OF [facility] CBC panel Auto (Bld)on 10-15 Erythrocyte distribution width (RBC) [Ratio] 13.6 % Normal 11.5-15.0 [facility] Comment on above: Order Comment: Speci men Type: BLOOD SPECIMENOrdering Facility: [facility] Address: [address] [place] [address] Performed By: #### 5 8410-2 ####[facility]ATORYCLIA [id number] [address] STATES OF [facility] Hematocrit (Bld) [Volume fraction] 23.5 % Low 36.0-46.0 [facility] Comment on above: Order Comment: Speci men Type: BLOOD SPECIMENOrdering Facility: [facility] Address: [address] [place] [address] Performed By: #### 5 8410-2 ####[facility]ATORYCLIA [id number] [address] STATES OF [facility] Hemoglobin (Bld) [Mass/Vol] 7.9 g/dL Low 11.5-15.5 [facility] Comment on above: Order Comment: Speci men Type: BLOOD SPECIMENOrdering Facility: [facility] Address: [address] [place] [address] Performed By: #### 5 8410-2 ####[facility]ATORYCLIA [id number] [address] [place] MCH (RBC) [Entitic mass] 32.6 pg Normal 26.0-34.0 [facility] Comment on above: Order Comment: Speci men Type: BLOOD SPECIMENOrdering Facility: [facility] Address: [address] [place] [address] Performed By: #### 5 8410-2 ####[facility]ORYCLIA [id number] [address] [place] MCHC (RBC) [Mass/Vol] 33.6 g/dL Normal 30.5-36.0 [facility] Comment on above: Order Comment: Speci men Type: BLOOD SPECIMENOrdering Facility: [facility] Address: [address] [place] [address] Performed By: #### 5 8410-2 ####[facility]ATORYCLIA [id number] [address] [place] MCV (RBC) [Entitic vol] 97.1 fL Normal 80.0-100.0 [facility] Comment on above: Order Comment: Speci men Type: BLOOD SPECIMENOrdering Facility: [facility] Address: [address] [place] [address] Performed By: #### 5 8410-2 ####[facility]ORYCLIA [id number] [address] OF [place] Nucleated RBC (Bld) [#/Vol] 10*3/uL Normal <0.01 [facility] Comment on above: Order Comment: Speci men Type: BLOOD SPECIMENOrdering Facility: [facility] Address: [address] [place] [address] Performed By: #### 5 8410-2 ####[facility]ATORYCLIA [id number] [address] [place] Platelet mean volume (Bld) [Entitic vol] 8.9 fL Low 9.0-12.7 [facility] Comment on above: Order Comment: Speci men Type: BLOOD SPECIMENOrdering Facility: [facility] Address: [address] [place] [address] Performed By: #### 5 8410-2 ####[facility]ORYCLIA [id number] [address] OF [place] Platelets (Bld) [#/Vol] 388 10*3/uL Normal 150-400 [facility] Comment on above: Order Comment: Speci men Type: BLOOD SPECIMENOrdering Facility: [facility] Address: [address] [place] [address] Performed By: #### 5 8410-2 ####[facility]ORYCLIA [id number] [address] [place] RBC (Bld) [#/Vol] 2.42 10*6/uL Low 3.90-5.20 [facility] Comment on above: Order Comment: Speci men Type: BLOOD SPECIMENOrdering Facility: [facility] Address: [address] [place] [address] Performed By: #### 5 8410-2 ####[facility]ORYCLIA [id number] [address] [place] WBC (Bld) [#/Vol] 16.58 10*3/uL High 3.70-11.00 [facility] Comment on above: Order Comment: Speci men Type: BLOOD SPECIMENOrdering Facility: [facility] Address: [address] [place] [address] Performed By: #### 5 8410-2 ####[facility]ATORYCLIA [id number] [address] THERAPY NTon 10-15-2021 THERAPY NT Normal [facility] Urinalysis complete panel (U )on 10-15-2021 Bacteria LM.HPF (Urine sed) [#/Area] Few Abnormal None Seen [facility] Comment on above: Order Comment: Speci men Type: URINE SPECIMENOrdering Facility: [facility] Address: [address] [place] [address] Performed By: #### 2 4356-8 ####[facility]ORYCLIA [id number] [address] Bilirubin Ql (U) Negative Normal Negative [facility] Comment on above: Order Comment: Speci men Type: URINE SPECIMENOrdering Facility: [facility] Address: [address] [place] [address] Performed By: #### 2 4356-8 ####[facility]ATORYCLIA [id number] [address] Clarity (Unsp spec) Clear Normal Clear [facility] Comment on above: Order Comment: Speci men Type: URINE SPECIMENOrdering Facility: [facility] Address: [address] [place] [address] Performed By: #### 2 4356-8 ####[facility]ORYCLIA [id number] [address] Color (U) Light Yellow Normal yellow [facility] Comment on above: Order Comment: Speci men Type: URINE SPECIMENOrdering Facility: [facility] Address: [address] [place] [address] Performed By: #### 2 4356-8 ####[facility]ORYCLIA [id number] [address] Epithelial cells LM.HPF (Urine sed) [#/Area] Few Normal [facility] Comment on above: Order Comment: Speci men Type: URINE SPECIMENOrdering Facility: [facility] Address: [address] [address] Result Comment: Few Performed By: #### 2 4356-8 ####[facility] LABORATORYCLIA [id number] [address] Glucose Test strip (U) [Mass/Vol] Negative Normal Negative [facility] Comment on above: Order Comment: Speci men Type: URINE SPECIMENOrdering Facility: [facility] Address: [address] [place] [address] Performed By: #### 2 4356-8 ####[facility] LABORATORYCLIA [id number] [address] Hemoglobin Ql (U) Negative Normal Negative [facility] Comment on above: Order Comment: Speci men Type: URINE SPECIMENOrdering Facility: [facility] Address: [address] [place] [address] Performed By: #### 2 4356-8 ####[facility]ORYCLIA [id number] [address] Ketones Ql (U) Negative Normal Negative [facility] Comment on above: Order Comment: Speci men Type: URINE SPECIMENOrdering Facility: [facility] Address: [facility] [address] Performed By: #### 2 4356-8 ####[facility] LABORATORYCLIA [id number] [address] Leukocyte esterase Test strip Ql (U) 500 Karson/mL Abnormal Negative [facility] Comment on above: Order Comment: Speci men Type: URINE SPECIMENOrdering Facility: [facility] Address: [address] [address] Performed By: #### 2 4356-8 ####[facility]ORYCLIA [id number] [address] [place] Nitrite Ql (U) 1+ Abnormal Negative [facility] Comment on above: Order Comment: Speci men Type: URINE SPECIMENOrdering Facility: [facility] Address: [address] [place] [address] Performed By: #### 2 4356-8 ####[facility]ORYCLIA [id number] [address] [place] pH (U) 7.5 [pH] Normal 5.0-8.0 [facility] Comment on above: Order Comment: Speci men Type: URINE SPECIMENOrdering Facility: [facility] Address: [address] [place] [address] Performed By: #### 2 4356-8 ####[facility]ORYCLIA [id number] [address] Protein (U) [Mass/Vol] Negative Normal Negative [facility] Comment on above: Order Comment: Speci men Type: URINE SPECIMENOrdering Facility: [facility] Address: [address] [place] [address] Performed By: #### 2 4356-8 ####[facility]ORYCLIA [id number] [address] [place] [facility] RBC LM.HPF (Urine sed) [#/Area] 6-10 /HPF Abnormal 0-3 /HPF [facility] Comment on above: Order Comment: Speci men Type: URINE SPECIMENOrdering Facility: [facility] Address: [address] [place] [address] Performed By: #### 2 4356-8 ####[facility]ORYCLIA [id number] [address] [place] [facility] Specific gravity (U) [Rel density] 1.007 Normal 1.005-1.030 [facility] Comment on above: Order Comment: Speci men Type: URINE SPECIMENOrdering Facility: [facility] Address: [address] [place] [address] Performed By: #### 2 4356-8 ####[facility]ATORYCLIA [id number] Urobilinogen Ql (U) Normal Normal Negative [facility] Comment on above: Order Comment: Speci men Type: URINE SPECIMENOrdering Facility: [facility] Address: [address] [place] [address] Performed By: #### 2 4356-8 ####[facility] LABORATORYCLIA [id number] [address] [place] WBC LM.HPF (Urine sed) [#/Area] /[HPF] Abnormal 0-5 /HPF [facility] Comment on above: Order Comment: Speci men Type: URINE SPECIMENOrdering Facility: [facility] Address: [address] [place] [address] Performed By: #### 2 4356-8 ####[facility]ORYCLIA [id number] [address] [place] Urinalysis complete pnl Uron 10-15-2021 Urinalysis complete panel (U) Abnormal [facility] Comment on above: Order Comment: Speci men Type: URINE SPECIMENOrdering Facility: [facility] Address: [address] [place] [address] Performed By: #### 2 4356-8 ####[facility]ATORYCLIA [id number] [address] [place] Basic metabolic 2000 panelon 10-14-2021 Anion gap [Moles/Vol] 11 mmol/L Normal 9-18 [facility] Comment on above: Order Comment: Speci men Type: BLOOD SPECIMENOrdering Facility: [facility] Address: [address] [place] [address] Performed By: #### 2 4321-2 ####[facility]ATORYCLIA [id number] [address] [place] Calcium [Mass/Vol] 7.1 mg/dL Low 8.5-10.2 [facility] Comment on above: Order Comment: Speci men Type: BLOOD SPECIMENOrdering Facility: [facility] Address: [address] [address] Performed By: #### 2 4321-2 ####[facility]ATORYCLIA [id number] [address] STATES OF [facility] Chloride [Moles/Vol] 100 mmol/L Normal 97-105 [facility] Comment on above: Order Comment: Speci men Type: BLOOD SPECIMENOrdering Facility: [facility] Address: [address] [place] [address] Performed By: #### 2 4321-2 ####[facility]ATORYCLIA [id number] [address] STATES OF [facility] CO2 [Moles/Vol] 25 mmol/L Normal 22-30 [facility] Comment on above: Order Comment: Speci men Type: BLOOD SPECIMENOrdering Facility: [facility] Address: [address] [place] [address] Performed By: #### 2 4321-2 ####[facility]ATORYCLIA [id number] [address] STATES OF [facility] Creatinine [Mass/Vol] 0.44 mg/dL Low 0.58-0.96 [facility] Comment on above: Order Comment: Speci men Type: BLOOD SPECIMENOrdering Facility: [facility] Address: [address] [place] [address] Performed By: #### 2 4321-2 ####[facility]ATORYCLIA [id number] [address] ESTIMATED GLOMERULAR FILTRATION RATE 102 mL/min/1.73m??? Normal >=60 [facility] Comment on above: Order Comment: Speci men Type: BLOOD SPECIMENOrdering Facility: [facility] Address: [address] [place] [address] Result Comment: Lulu mated Glomerular Filtration Rate [...] [facility]ORYCLIA [id number] [place] [address] [place] Glucose [Mass/Vol] 116 mg/dL High 74-99 [facility] Comment on above: Order Comment: Sharath lozano Type: BLOOD SPECIMENOrdering Facility: [facility] Address: [address] [place] [address] Result Comment: The [place] Diabetes Association (ADA) provides guidance for cutoff [...] Standards of Medical Care in Diabetes 2016, [place] [employer]. Diabetes Care. 2016.39(Suppl 1). Performed By: #### 2 4321-2 ####[facility]ATORYCLIA [id number] [place] [address] [place] Potassium [Moles/Vol] 3.8 mmol/L Normal 3.7-5.1 [facility] Comment on above: Order Comment: Sharath lozano Type: BLOOD SPECIMENOrdering Facility: [facility] Address: [address] [address] Performed By: #### 2 4321-2 ####[facility]ATORYCLIA [id number] [place] [address] [place] Sodium [Moles/Vol] 136 mmol/L Normal 136-144 [facility] Comment on above: Order Comment: Sharath lozano Type: BLOOD SPECIMENOrdering Facility: [facility] Address: [address] [address] Performed By: #### 2 4321-2 ####[facility]ATORYCLIA [id number] [address] [place] [facility] Urea nitrogen [Mass/Vol] 9 mg/dL Normal 7-21 [facility] Comment on above: Order Comment: Speci men Type: BLOOD SPECIMENOrdering Facility: [facility] Address: [address] [place] [address] Performed By: #### 2 4321-2 ####[facility]ATORYCLIA [id number] [address] CBC panel Auto (Bld)on 10-14 Erythrocyte distribution width (RBC) [Ratio] 13.7 % Normal 11.5-15.0 [facility] Comment on above: Order Comment: Speci men Type: BLOOD SPECIMENOrdering Facility: [facility] Address: [address] [place] [address] Performed By: #### 5 8410-2 ####[facility]ATORYCLIA [id number] [address] Hematocrit (Bld) [Volume fraction] 25.1 % Low 36.0-46.0 [facility] Comment on above: Order Comment: Speci men Type: BLOOD SPECIMENOrdering Facility: [facility] Address: [address] [place] [address] Performed By: #### 5 8410-2 ####[facility]ATORYCLIA [id number] [address] Hemoglobin (Bld) [Mass/Vol] 8.4 g/dL Low 11.5-15.5 [facility] Comment on above: Order Comment: Speci men Type: BLOOD SPECIMENOrdering Facility: [facility] Address: [address] [place] [address] Performed By: #### 5 8410-2 ####[facility]ATORYCLIA [id number] [address] [place] MCH (RBC) [Entitic mass] 32.3 pg Normal 26.0-34.0 [facility] Comment on above: Order Comment: Speci men Type: BLOOD SPECIMENOrdering Facility: [facility] Address: [address] [place] [address] Performed By: #### 5 8410-2 ####[facility]ATORYCLIA [id number] [address] MCHC (RBC) [Mass/Vol] 33.5 g/dL Normal 30.5-36.0 [facility] Comment on above: Order Comment: Speci men Type: BLOOD SPECIMENOrdering Facility: [facility] Address: [address] [place] [address] Performed By: #### 5 8410-2 ####[facility]ATORYCLIA [id number] [address] MCV (RBC) [Entitic vol] 96.5 fL Normal 80.0-100.0 [facility] Comment on above: Order Comment: Speci men Type: BLOOD SPECIMENOrdering Facility: [facility] Address: [address] [place] [address] Performed By: #### 5 8410-2 ####[facility]ATORYCLIA [id number] [address] Nucleated RBC (Bld) [#/Vol] 10*3/uL Normal <0.01 [facility] Comment on above: Order Comment: Speci men Type: BLOOD SPECIMENOrdering Facility: [facility] Address: [address] [place] [address] Performed By: #### 5 8410-2 ####[facility]ATORYCLIA [id number] [address] Platelet mean volume (Bld) [Entitic vol] 8.9 fL Low 9.0-12.7 [facility] Comment on above: Order Comment: Speci men Type: BLOOD SPECIMENOrdering Facility: [facility] Address: [address] [place] [address] Performed By: #### 5 8410-2 ####[facility]ATORYCLIA [id number] [address] Platelets (Bld) [#/Vol] 405 10*3/uL High 150-400 [facility] Comment on above: Order Comment: Speci men Type: BLOOD SPECIMENOrdering Facility: [facility] Address: [address] [place] [address] Performed By: #### 5 8410-2 ####[facility]ORYCLIA [id number] [address] RBC (Bld) [#/Vol] 2.60 10*6/uL Low 3.90-5.20 [facility] Comment on above: Order Comment: Speci men Type: BLOOD SPECIMENOrdering Facility: [facility] Address: [address] [place] [address] Performed By: #### 5 8410-2 ####[facility]ATORYCLIA [id number] [address] WBC (Bld) [#/Vol] 16.86 10*3/uL High 3.70-11.00 [facility] Comment on above: Order Comment: Speci men Type: BLOOD SPECIMENOrdering Facility: [facility] Address: [address] [place] [address] Performed By: #### 5 8410-2 ####[facility]ATORYCLIA [id number] [address] TSH SerPl-aCncon 10-14-2021 TSH Qn 1.610 m[IU]/L Normal 0.270-4.200 [facility] Comment on above: Order Comment: Speci men Type: BLOOD SPECIMENOrdering Facility: [facility] Address: [address] [place] [address] Performed By: #### 3 016-3 ####[facility]ATORYCLIA [id number] [address] Vit B12 SerPl-mCncon 022 Cobalamin (Vitamin B12) [Mass/Vol] 1299 pg/mL High 232-1,245 [facility] Comment on above: Order Comment: Speci men Type: BLOOD SPECIMENOrdering Facility: [facility] Address: [address] [place] [address] Performed By: #### 2 132-9 ####[facility]ATORYCLIA [id number] [place] [address] [place] ALLIED HEALTHon 10-13-2021 ALLIED HEALTH Normal [facility] ALLIED HEALTH Normal [facility] ALLIED HEALTH Normal [facility] Basic metabolic 2000 panelon 10-13-2021 Anion gap [Moles/Vol] 11 mmol/L Normal 9-18 [facility] Comment on above: Order Comment: Speci men Type: BLOOD SPECIMENOrdering Facility: [facility] Address: [address] [place] [address] Performed By: #### 2 4321-2 ####[facility]ATORYCLIA [id number] [place] [address] [place] Calcium [Mass/Vol] 7.3 mg/dL Low 8.5-10.2 [facility] Comment on above: Order Comment: Speci men Type: BLOOD SPECIMENOrdering Facility: [facility] Address: [address] [place] [address] Performed By: #### 2 4321-2 ####[facility]ATORYCLIA [id number] [place] [address] [place] Chloride [Moles/Vol] 99 mmol/L Normal 97-105 [facility] Comment on above: Order Comment: Speci men Type: BLOOD SPECIMENOrdering Facility: [facility] Address: [address] [place] [address] Performed By: #### 2 4321-2 ####[facility]ATORYCLIA [id number] [place] [address] [place] CO2 [Moles/Vol] 24 mmol/L Normal 22-30 [facility] Comment on above: Order Comment: Speci men Type: BLOOD SPECIMENOrdering Facility: [facility] Address: [address] [address] Performed By: #### 2 4321-2 ####[facility]ATORYCLIA [id number] [address] OF [facility] Creatinine [Mass/Vol] 0.46 mg/dL Low 0.58-0.96 [facility] Comment on above: Order Comment: Speci men Type: BLOOD SPECIMENOrdering Facility: [facility] Address: [address] [address] Performed By: #### 2 4321-2 ####[facility]ATORYCLIA [id number] [address] ESTIMATED GLOMERULAR FILTRATION RATE 101 mL/min/1.73m??? Normal >=60 [facility] Comment on above: Order Comment: Sharath lozano Type: BLOOD SPECIMENOrdering Facility: [facility] Address: [address] [place] [address] Result Comment: Lulu mated Glomerular Filtration Rate [...] [facility]ORYCLIA [id number] [address] OF [facility] Glucose [Mass/Vol] 121 mg/dL High 74-99 [facility] Comment on above: Order Comment: Sharath marta Type: BLOOD SPECIMENOrdering Facility: [facility] Address: [address] [address] Result Comment: The [place] Diabetes Association (ADA) provides guidance for cutoff [...] Standards of Medical Care in Diabetes 2016, [place] [employer]. Diabetes Care. 2016.39(Suppl 1). Performed By: #### 2 4321-2 ####[facility]ATORYCLIA [id number] [address] STATES OF [facility] Potassium [Moles/Vol] 3.6 mmol/L Low 3.7-5.1 [facility] Comment on above: Order Comment: Speci men Type: BLOOD SPECIMENOrdering Facility: [facility] Address: [address] [place] [address] Performed By: #### 2 4321-2 ####[facility]ATORYCLIA [id number] [address] [place] [facility] Sodium [Moles/Vol] 134 mmol/L Low 136-144 [facility] Comment on above: Order Comment: Speci men Type: BLOOD SPECIMENOrdering Facility: [facility] Address: [address] [place] [address] Performed By: #### 2 4321-2 ####[facility]ATORYCLIA [id number] [address] [place] [facility] Urea nitrogen [Mass/Vol] 9 mg/dL Normal 7-21 [facility] Comment on above: Order Comment: Speci men Type: BLOOD SPECIMENOrdering Facility: [facility] Address: [address] [place] [address] Performed By: #### 2 4321-2 ####[facility]ATORYCLIA [id number] [place] [id number] [place] CASE MANAGEMon 10-13-2021 CASE MANAGEM Normal [facility] CBC panel Auto (Bld)on 10-13 Erythrocyte distribution width (RBC) [Ratio] 13.5 % Normal 11.5-15.0 [facility] Comment on above: Order Comment: Speci men Type: BLOOD SPECIMENOrdering Facility: [facility] Address: [address] [place] [address] Performed By: #### 5 8410-2 ####[facility]ORYCLIA [id number] [address] Hematocrit (Bld) [Volume fraction] 25.6 % Low 36.0-46.0 [facility] Comment on above: Order Comment: Speci men Type: BLOOD SPECIMENOrdering Facility: [facility] Address: [address] [place] [address] Performed By: #### 5 8410-2 ####[facility]ORYCLIA [id number] [address] Hemoglobin (Bld) [Mass/Vol] 8.4 g/dL Low 11.5-15.5 [facility] Comment on above: Order Comment: Speci men Type: BLOOD SPECIMENOrdering Facility: [facility] Address: [address] [place] [address] Performed By: #### 5 8410-2 ####[facility]ORYCLIA [id number] [address] MCH (RBC) [Entitic mass] 32.1 pg Normal 26.0-34.0 [facility] Comment on above: Order Comment: Speci men Type: BLOOD SPECIMENOrdering Facility: [facility] Address: [address] [place] [address] Performed By: #### 5 8410-2 ####[facility]ORYCLIA [id number] [address] [place] MCHC (RBC) [Mass/Vol] 32.8 g/dL Normal 30.5-36.0 [facility] Comment on above: Order Comment: Speci men Type: BLOOD SPECIMENOrdering Facility: [facility] Address: [address] [place] [address] Performed By: #### 5 8410-2 ####[facility]ORYCLIA [id number] [address] MCV (RBC) [Entitic vol] 97.7 fL Normal 80.0-100.0 [facility] Comment on above: Order Comment: Speci men Type: BLOOD SPECIMENOrdering Facility: [facility] Address: [address] [place] [address] Performed By: #### 5 8410-2 ####[facility]ORYCLIA [id number] [address] [place] Nucleated RBC (Bld) [#/Vol] 10*3/uL Normal <0.01 [facility] Comment on above: Order Comment: Speci men Type: BLOOD SPECIMENOrdering Facility: [facility] Address: [address] [place] [address] Performed By: #### 5 8410-2 ####[facility]ORYCLIA [id number] [address] OF [facility] Platelet mean volume (Bld) [Entitic vol] 9.4 fL Normal 9.0-12.7 [facility] Comment on above: Order Comment: Speci men Type: BLOOD SPECIMENOrdering Facility: [facility] Address: [address] [place] [address] Performed By: #### 5 8410-2 ####[facility]ORYCLIA [id number] [address] Platelets (Bld) [#/Vol] 387 10*3/uL Normal 150-400 [facility] Comment on above: Order Comment: Speci men Type: BLOOD SPECIMENOrdering Facility: [facility] Address: [address] [place] [address] Performed By: #### 5 8410-2 ####[facility]ORYCLIA [id number] [address] [place] RBC (Bld) [#/Vol] 2.62 10*6/uL Low 3.90-5.20 [facility] Comment on above: Order Comment: Speci men Type: BLOOD SPECIMENOrdering Facility: [facility] Address: [address] [address] Performed By: #### 5 8410-2 ####[facility]ATORYCLIA [id number] [place] [address] [place] WBC (Bld) [#/Vol] 16.34 10*3/uL High 3.70-11.00 [facility] Comment on above: Order Comment: Speci men Type: BLOOD SPECIMENOrdering Facility: [facility] Address: [address] [place] [address] Performed By: #### 5 8410-2 ####[facility]ATORYCLIA [id number] [address] [place] CONSULTon 10-13-2021 CONSULT Normal [facility] NUTRITIONon 10-13-2021 NUTRITION Normal [facility] THERAPY NTon 10-13-2021 THERAPY NT Normal [facility] XR CHEST 1V FRONTALon 2021 XR CHEST 1V FRONTAL Normal [facility] XR CHEST 2V FRONTAL/LATon XR CHEST 2V FRONTAL/LAT Normal A [facility] ALLIED HEALTHon 10-12-2021 ALLIED HEALTH Normal [facility] Basic metabolic 2000 panelon 10-12-2021 Anion gap [Moles/Vol] 10 mmol/L Normal 9-18 [facility] Comment on above: Order Comment: Speci men Type: BLOOD SPECIMENOrdering Facility: [facility] Address: [address] [address] Performed By: #### 2 4321-2 ####[facility]ATORYCLIA [id number] [place] [address] [place] Calcium [Mass/Vol] 7.2 mg/dL Low 8.5-10.2 [facility] Comment on above: Order Comment: Speci men Type: BLOOD SPECIMENOrdering Facility: [facility] Address: [address] [address] Performed By: #### 2 4321-2 ####[facility]ATORYCLIA [id number] [place] [address] [place] Chloride [Moles/Vol] 95 mmol/L Low 97-105 [facility] Comment on above: Order Comment: Speci men Type: BLOOD SPECIMENOrdering Facility: [facility] Address: [address] [place] [address] Performed By: #### 2 4321-2 ####[facility]ORYCLIA [id number] [address] CO2 [Moles/Vol] 26 mmol/L Normal 22-30 [facility] Comment on above: Order Comment: Speci men Type: BLOOD SPECIMENOrdering Facility: [facility] Address: [address] [place] [address] Performed By: #### 2 4321-2 ####[facility] [id number] [address] Creatinine [Mass/Vol] 0.38 mg/dL Low 0.58-0.96 [facility] Comment on above: Order Comment: Speci men Type: BLOOD SPECIMENOrdering Facility: [facility] Address: [address] [place] [address] Performed By: #### 2 4321-2 ####[facility]ORYCLIA [id number] [address] ESTIMATED GLOMERULAR FILTRATION RATE 105 mL/min/1.73m??? Normal >=60 [facility] Comment on above: Order Comment: Speci men Type: BLOOD SPECIMENOrdering Facility: [facility] Address: [address] [place] [address] Result Comment: Lulu mated Glomerular Filtration Rate [...] [facility]ORYCLIA [id number] [place] [address] [place] Glucose [Mass/Vol] 111 mg/dL High 74-99 [facility] Comment on above: Order Comment: Speci men Type: BLOOD SPECIMENOrdering Facility: [facility] Address: [address] [place] [address] Result Comment: The [place] Diabetes Association (ADA) provides guidance for cutoff [...] Standards of Medical Care in Diabetes 2016, [place] [employer]. Diabetes Care. 2016.39(Suppl 1). Performed By: #### 2 4321-2 ####[facility]ORYCLIA [id number] [place] [address] [place] Potassium [Moles/Vol] 3.4 mmol/L Low 3.7-5.1 [facility] Comment on above: Order Comment: Cathyi men Type: BLOOD SPECIMENOrdering Facility: [facility] Address: [address] [place] [address] Performed By: #### 2 4321-2 ####[facility]ORYCLIA [id number] [place] [address] [place] Sodium [Moles/Vol] 131 mmol/L Low 136-144 [facility] Comment on above: Order Comment: Speci men Type: BLOOD SPECIMENOrdering Facility: [facility] Address: [address] [place] [address] Performed By: #### 2 4321-2 ####[facility]ORYCLIA [id number] [place] [address] [place] Urea nitrogen [Mass/Vol] 10 mg/dL Normal 7-21 [facility] Comment on above: Order Comment: Speci men Type: BLOOD SPECIMENOrdering Facility: [facility] Address: [address] [place] [address] Performed By: #### 2 4321-2 ####[facility]ATORYCLIA [id number] [address] [place] CASE MANAGEMon 10-12-2021 CASE MANAGEM Normal [facility] CBC panel Auto (Bld)on 10-12 Erythrocyte distribution width (RBC) [Ratio] 13.6 % Normal 11.5-15.0 [facility] Comment on above: Order Comment: Speci men Type: BLOOD SPECIMENOrdering Facility: [facility] Address: [address] [place] [address] Performed By: #### 5 8410-2 ####[facility]ATORYCLIA [id number] [address] [place] Hematocrit (Bld) [Volume fraction] 24.8 % Low 36.0-46.0 [facility] Comment on above: Order Comment: Speci men Type: BLOOD SPECIMENOrdering Facility: [facility] [facility] Address: [address] [place] [address] Performed By: #### 5 8410-2 ####[facility]ATORYCLIA [id number] [address] [place] Hemoglobin (Bld) [Mass/Vol] 8.6 g/dL Low 11.5-15.5 [facility] Comment on above: Order Comment: Speci men Type: BLOOD SPECIMENOrdering Facility: [facility] Address: [address] [place] [address] Performed By: #### 5 8410-2 ####[facility]ATORYCLIA [id number] [address] [place] MCH (RBC) [Entitic mass] 32.8 pg Normal 26.0-34.0 [facility] Comment on above: Order Comment: Speci men Type: BLOOD SPECIMENOrdering Facility: [facility] Address: [address] [place] [address] Performed By: #### 5 8410-2 ####[facility]ATORYCLIA [id number] [address] MCHC (RBC) [Mass/Vol] 34.7 g/dL Normal 30.5-36.0 [facility] Comment on above: Order Comment: Speci men Type: BLOOD SPECIMENOrdering Facility: [facility] Address: [address] [place] [address] Performed By: #### 5 8410-2 ####[facility]ATORYCLIA [id number] [address] MCV (RBC) [Entitic vol] 94.7 fL Normal 80.0-100.0 [facility] Comment on above: Order Comment: Speci men Type: BLOOD SPECIMENOrdering Facility: [facility] Address: [address] [place] [address] Performed By: #### 5 8410-2 ####[facility]ATORYCLIA [id number] [address] Nucleated RBC (Bld) [#/Vol] 10*3/uL Normal <0.01 [facility] Comment on above: Order Comment: Speci men Type: BLOOD SPECIMENOrdering Facility: [facility] Address: [address] [place] [address] Performed By: #### 5 8410-2 ####[facility]ATORYCLIA [id number] [address] STATES OF [facility] Platelet mean volume (Bld) [Entitic vol] 9.5 fL Normal 9.0-12.7 [facility] Comment on above: Order Comment: Speci men Type: BLOOD SPECIMENOrdering Facility: [facility] Address: [address] [place] [address] Performed By: #### 5 8410-2 ####[facility]ORYCLIA [id number] [address] [place] Platelets (Bld) [#/Vol] 338 10*3/uL Normal 150-400 [facility] Comment on above: Order Comment: Speci men Type: BLOOD SPECIMENOrdering Facility: [facility] Address: [address] [place] [address] Performed By: #### 5 8410-2 ####[facility]ORYCLIA [id number] [address] STATES OF [facility] RBC (Bld) [#/Vol] 2.62 10*6/uL Low 3.90-5.20 [facility] Comment on above: Order Comment: Speci men Type: BLOOD SPECIMENOrdering Facility: [facility] Address: [address] [place] [address] Performed By: #### 5 8410-2 ####[facility]ATORYCLIA [id number] [address] OF [facility] WBC (Bld) [#/Vol] 15.12 10*3/uL High 3.70-11.00 [facility] Comment on above: Order Comment: Speci men Type: BLOOD SPECIMENOrdering Facility: [facility] Address: [address] [place] [address] Performed By: #### 5 8410-2 ####[facility]ATORYCLIA [id number] [address] OF [facility] CNPNon 10-12-2021 CNPN Normal [facility] THERAPY NTon 10-12-2021 THERAPY NT Normal [facility] XR CHEST 1V FRONTALon 2021 XR CHEST 1V FRONTAL Normal [facility] ALLIED HEALTHon 10-11-2021 ALLIED HEALTH Normal [facility] ALLIED HEALTH Normal [facility] ALLIED HEALTH Normal [facility] ALLIED HEALTH Normal [facility] ANES POSTPROC EVALon 022 ANES POSTPROC EVAL Normal [facility] Bacteria Bld Culton 10-12-19 22 Bacteria identified Cx Nom (Bld) CULTURE, BLOOD: No growth 5 days Normal [facility] Comment on above: Performed By: #### 6 00-7 ####[facility]ORYCLIA [id number] [place] [address] [place] Bacteria identified Cx Nom (Bld) CULTURE, BLOOD: No growth 5 days Normal [facility] Comment on above: Performed By: #### 6 00-7 ####[facility]ATORYCLIA [id number] [place] [address] [place] Basic metabolic 2000 panelon 10-11-2021 Anion gap [Moles/Vol] 9 mmol/L Normal 9-18 [facility] Comment on above: Order Comment: Speci men Type: BLOOD SPECIMENOrdering Facility: [facility] Address: [address] [place] [address] Performed By: #### 2 4321-2 ####[facility]ORYCLIA [id number] [place] [address] [place] Calcium [Mass/Vol] 7.5 mg/dL Low 8.5-10.2 [facility] Comment on above: Order Comment: Speci men Type: BLOOD SPECIMENOrdering Facility: [facility] Address: [address] [place] [address] Performed By: #### 2 4321-2 ####[facility]ORYCLIA [id number] [address] [place] Chloride [Moles/Vol] 94 mmol/L Low 97-105 [facility] Comment on above: Order Comment: Speci men Type: BLOOD SPECIMENOrdering Facility: [facility] Address: [address] [place] [address] Performed By: #### 2 4321-2 ####[facility]ATORYCLIA [id number] [place] [address] [place] CO2 [Moles/Vol] 27 mmol/L Normal 22-30 [facility] Comment on above: Order Comment: Speci men Type: BLOOD SPECIMENOrdering Facility: [facility] Address: [address] [place] [address] Performed By: #### 2 4321-2 ####[facility]ORYCLIA [id number] [address] [place] Creatinine [Mass/Vol] 0.46 mg/dL Low 0.58-0.96 [facility] Comment on above: Order Comment: Sharath lozano Type: BLOOD SPECIMENOrdering Facility: [facility] Address: [address] [address] Performed By: #### 2 4321-2 ####[facility]ATORYCLIA [id number] [address] ESTIMATED GLOMERULAR FILTRATION RATE 101 mL/min/1.73m??? Normal >=60 [facility] Comment on above: Order Comment: Sharath lozano Type: BLOOD SPECIMENOrdering Facility: [facility] Address: [address] [address] Result Comment: Lulu mated Glomerular Filtration Rate [...] [facility]ORYCLIA [id number] [address] STATES OF [facility] Glucose [Mass/Vol] 125 mg/dL High 74-99 [facility] Comment on above: Order Comment: Sharath lozano Type: BLOOD SPECIMENOrdering Facility: [facility] Address: [address] [address] Result Comment: The [place] Diabetes Association (ADA) provides guidance for cutoff [...] Standards of Medical Care in Diabetes 2016, [place]. Diabetes Care. 2016.39(Suppl 1). Performed By: #### 2 4321-2 ####[facility]ATORYCLIA [id number] [address] Potassium [Moles/Vol] 3.8 mmol/L Normal 3.7-5.1 [facility] Comment on above: Order Comment: Speci men Type: BLOOD SPECIMENOrdering Facility: [facility] Address: [address] [place] [address] Performed By: #### 2 4321-2 ####[facility]ATORYCLIA [id number] [address] Sodium [Moles/Vol] 130 mmol/L Low 136-144 [facility] Comment on above: Order Comment: Speci men Type: BLOOD SPECIMENOrdering Facility: [facility] Address: [address] [place] [address] Performed By: #### 2 4321-2 ####[facility]ORYCLIA [id number] [address] Urea nitrogen [Mass/Vol] 7 mg/dL Normal 7-21 [facility] Comment on above: Order Comment: Speci men Type: BLOOD SPECIMENOrdering Facility: [facility] Address: [address] [place] [address] Performed By: #### 2 4321-2 ####[facility]ATORYCLIA [id number] [address] CBC panel Auto (Bld)on 10-11 Erythrocyte distribution width (RBC) [Ratio] 13.5 % Normal 11.5-15.0 [facility] Comment on above: Order Comment: Speci men Type: BLOOD SPECIMENOrdering Facility: [facility] Address: [address] [place] [address] Performed By: #### 5 8410-2 ####[facility]ORYCLIA [id number] [address] Hematocrit (Bld) [Volume fraction] 25.4 % Low 36.0-46.0 [facility] Comment on above: Order Comment: Speci men Type: BLOOD SPECIMENOrdering Facility: [facility] Address: [address] [place] [address] Performed By: #### 5 8410-2 ####[facility]ATORYCLIA [id number] [address] OF [facility] Hemoglobin (Bld) [Mass/Vol] 8.8 g/dL Low 11.5-15.5 [facility] Comment on above: Order Comment: Speci men Type: BLOOD SPECIMENOrdering Facility: [facility] Address: [address] [place] [address] Performed By: #### 5 8410-2 ####[facility]ATORYCLIA [id number] [address] MCH (RBC) [Entitic mass] 32.5 pg Normal 26.0-34.0 [facility] Comment on above: Order Comment: Speci men Type: BLOOD SPECIMENOrdering Facility: [facility] Address: [address] [place] [address] Performed By: #### 5 8410-2 ####[facility]ATORYCLIA [id number] [address] OF [facility] MCHC (RBC) [Mass/Vol] 34.6 g/dL Normal 30.5-36.0 [facility] Comment on above: Order Comment: Speci men Type: BLOOD SPECIMENOrdering Facility: [facility] Address: [address] [place] [address] Performed By: #### 5 8410-2 ####[facility]ORYCLIA [id number] [address] MCV (RBC) [Entitic vol] 93.7 fL Normal 80.0-100.0 [facility] Comment on above: Order Comment: Speci men Type: BLOOD SPECIMENOrdering Facility: [facility] Address: [address] [place], [place] [id number] Performed By: #### 5 8410-2 ####[facility]ORYCLIA [id number] [address] Nucleated RBC (Bld) [#/Vol] 10*3/uL Normal <0.01 [facility] Comment on above: Order Comment: Speci men Type: BLOOD SPECIMENOrdering Facility: [facility] Address: [address] [place] [address] Performed By: #### 5 8410-2 ####[facility]ORYCLIA [id number] [address] [place] Platelet mean volume (Bld) [Entitic vol] 9.7 fL Normal 9.0-12.7 [facility] Comment on above: Order Comment: Speci men Type: BLOOD SPECIMENOrdering Facility: [facility] Address: [address] [place] [address] Performed By: #### 5 8410-2 ####[facility]ORYCLIA [id number] [address] [place] Platelets (Bld) [#/Vol] 310 10*3/uL Normal 150-400 [facility] Comment on above: Order Comment: Speci men Type: BLOOD SPECIMENOrdering Facility: [facility] Address: [address] [place] [address] Performed By: #### 5 8410-2 ####[facility]ATORYCLIA [id number] [address] [place] RBC (Bld) [#/Vol] 2.71 10*6/uL Low 3.90-5.20 [facility] Comment on above: Order Comment: Speci men Type: BLOOD SPECIMENOrdering Facility: [facility] Address: [address] [place] [address] Performed By: #### 5 8410-2 ####[facility]ORYCLIA [id number] [address] [place] WBC (Bld) [#/Vol] 19.17 10*3/uL High 3.70-11.00 [facility] Comment on above: Order Comment: Speci men Type: BLOOD SPECIMENOrdering Facility: [facility] Address: [address] [place] [address] Performed By: #### 5 8410-2 ####[facility]ATORYCLIA [id number] [address] [place] CONSULTon 10-11-2021 CONSULT HNO ID: [id number] Author: Corin Quinn MD Service: [facility] Author Type: Physician Type: Consults Filed: 10/11/2021 3:56 PM Note Text: Consul tdictated. No intervention Normal [facility] CONSULT Normal [facility] MRI BRAIN WO/W IVCONon 10-11 MRI BRAIN WO/W IVCON Normal [facility] SEPSIS LACTATEon 10-11-2021 Lactate [Moles/Vol] 1.0 mmol/L Normal 0.5-2.0 [facility] Comment on above: Order Comment: Speci men Type: BLOOD SPECIMENOrdering Facility: [facility] Address: [address] [place] [address] Performed By: #### S LACT ####[facility]ORYCLIA [id number] [address] THERAPY NTon 10-11-2021 THERAPY NT Normal [facility] THERAPY NT Normal [facility] XR CHEST 1V FRONTALon 2021 XR CHEST 1V FRONTAL Normal [facility] ALLIED HEALTHon 10-10-2021 ALLIED HEALTH Normal [facility] ALLIED HEALTH Normal [facility] Basic metabolic 2000 panelon 10-10-2021 Anion gap [Moles/Vol] 13 mmol/L Normal 9-18 [facility] Comment on above: Order Comment: Speci men Type: BLOOD SPECIMENOrdering Facility: [facility] Address: [address] [place] [address] Performed By: #### 2 4321-2, 2777-1, 65441-3 ####[facility]ORYCLIA [id number] [place] [address] [place] Calcium [Mass/Vol] 7.1 mg/dL Low 8.5-10.2 [facility] Comment on above: Order Comment: Speci men Type: BLOOD SPECIMENOrdering Facility: [facility] Address: [address] [place] [address] Performed By: #### 2 4321-2, 2776-04, ####[facility]ORYCLIA [id number] [place] [address] [place] Chloride [Moles/Vol] 96 mmol/L Low 97-105 [facility] Comment on above: Order Comment: Speci men Type: BLOOD SPECIMENOrdering Facility: [facility] Address: [address] [place] [address] Performed By: #### 2 4321-2, 2776-04, ####[facility]ORYCLIA [id number] [address] STATES OF [facility] CO2 [Moles/Vol] 23 mmol/L Normal 22-30 [facility] Comment on above: Order Comment: Speci men Type: BLOOD SPECIMENOrdering Facility: [facility] Address: [address] [place] [address] Performed By: #### 2 4321-2, 2776-04, ####[facility]ORYCLIA [id number] [place] [address] [place] Creatinine [Mass/Vol] 0.52 mg/dL Low 0.58-0.96 [facility] Comment on above: Order Comment: Speci men Type: BLOOD SPECIMENOrdering Facility: [facility] Address: [address] [place] [address] Performed By: #### 2 4321-2, 2776-04, ####[facility]ORYCLIA [id number] [address] [place] ESTIMATED GLOMERULAR FILTRATION RATE 98 mL/min/1.73m??? Normal >=60 [facility] Comment on above: Order Comment: Sharath lozano Type: BLOOD SPECIMENOrdering Facility: [facility] Address: [address] [place] [address] Result Comment: Lulu mated Glomerular Filtration Rate [...] GFR. Performed By: #### 2 4321-2, 2777-1, ####[facility]ORYCLIA [id number] [place] [address] [place] Glucose [Mass/Vol] 126 mg/dL High 74-99 [facility] Comment on above: Order Comment: Sharath lozano Type: BLOOD SPECIMENOrdering Facility: [facility] Address: [address] [id number] Result Comment: The [place] Diabetes Association (ADA) provides guidance for cutoff [...] Standards of Medical Care in Diabetes 2016, [place] [employer]. Diabetes Care. 2016.39(Suppl 1). Performed By: #### 2 4321-2, 2777-, 44436-7 ####[facility]ORYCLIA [id number] [place] [address] [place] Potassium [Moles/Vol] 3.8 mmol/L Normal 3.7-5.1 [facility] Comment on above: Order Comment: Sharath lozano Type: BLOOD SPECIMENOrdering Facility: [facility] Address: [address] Performed By: #### 2 4321-2, 27710-20, ####[facility]ORYCLIA [id number] [address] STATES OF [facility] Sodium [Moles/Vol] 132 mmol/L Low 136-144 [facility] Comment on above: Order Comment: Speci men Type: BLOOD SPECIMENOrdering Facility: [facility] Address: [address] [place], [place] [id number] Performed By: #### 2 4321-2, 2776-04, ####[facility]ATORYCLIA [id number] [address] STATES [facility] Urea nitrogen [Mass/Vol] 9 mg/dL Normal 11-09 [facility] Comment on above: Order Comment: Speci men Type: BLOOD SPECIMENOrdering Facility: [facility] Address: [address] [place] [address] Performed By: #### 2 4321-2, 2776-04, ####[facility]ORYCLIA [id number] [address] [place] CASE MGT INIT ASSESon 2021 CASE MGT INIT ASSES Normal [facility] CBC panel Auto (Bld)on 10-10 Erythrocyte distribution width (RBC) [Ratio] 13.2 % Normal 11.5-15.0 [facility] Comment on above: Order Comment: Speci men Type: BLOOD SPECIMENOrdering Facility: [facility] Address: [address] [address] Performed By: #### 5 8410-2 ####[facility]ORYCLIA [id number] [address] STATES OF [facility] Hematocrit (Bld) [Volume fraction] 26.5 % Low 36.0-46.0 [facility] Comment on above: Order Comment: Speci men Type: BLOOD SPECIMENOrdering Facility: [facility] Address: [address] [place] [address] Performed By: #### 5 8410-2 ####[facility]ORYCLIA [id number] [address] Hemoglobin (Bld) [Mass/Vol] 9.3 g/dL Low 11.5-15.5 [facility] Comment on above: Order Comment: Speci men Type: BLOOD SPECIMENOrdering Facility: [facility] Address: [address] [place] [address] Performed By: #### 5 8410-2 ####[facility]ORYCLIA [id number] [address] MCH (RBC) [Entitic mass] 33.0 pg Normal 26.0-34.0 [facility] Comment on above: Order Comment: Speci men Type: BLOOD SPECIMENOrdering Facility: [facility] Address: [address] [place] [address] Performed By: #### 5 8410-2 ####[facility]ORYCLIA [id number] [address] MCHC (RBC) [Mass/Vol] 35.1 g/dL Normal 30.5-36.0 [facility] Comment on above: Order Comment: Speci men Type: BLOOD SPECIMENOrdering Facility: [facility] Address: [address] [place] [address] Performed By: #### 5 8410-2 ####[facility]ORYCLIA [id number] [address] MCV (RBC) [Entitic vol] 94.0 fL Normal 80.0-100.0 [facility] Comment on above: Order Comment: Speci men Type: BLOOD SPECIMENOrdering Facility: [facility] Address: [address] [place] [address] Performed By: #### 5 8410-2 ####[facility]ORYCLIA [id number] [address] Nucleated RBC (Bld) [#/Vol] 10*3/uL Normal <0.01 [facility] Comment on above: Order Comment: Speci men Type: BLOOD SPECIMENOrdering Facility: [facility] Address: [address] [place] [address] Performed By: #### 5 8410-2 ####[facility]ORYCLIA [id number] [address] [place] Platelet mean volume (Bld) [Entitic vol] 9.6 fL Normal 9.0-12.7 [facility] Comment on above: Order Comment: Speci men Type: BLOOD SPECIMENOrdering Facility: [facility] Address: [address] [place], [place] [id number] Performed By: #### 5 8410-2 ####[facility]ORYCLIA [id number] [address] OF [place] Platelets (Bld) [#/Vol] 325 10*3/uL Normal 150-400 [facility] Comment on above: Order Comment: Speci men Type: BLOOD SPECIMENOrdering Facility: [facility] Address: [address] [place] [address] Performed By: #### 5 8410-2 ####[facility] LABORATORYCLIA [id number] [address] [place] RBC (Bld) [#/Vol] 2.82 10*6/uL Low 3.90-5.20 [facility] Comment on above: Order Comment: Speci men Type: BLOOD SPECIMENOrdering Facility: [facility] Address: [address] [place], [place] [id number] Performed By: #### 5 8410-2 ####[facility] LABORATORYCLIA [id number] [address] [place] WBC (Bld) [#/Vol] 14.72 10*3/uL High 3.70-11.00 [facility] Comment on above: Order Comment: Speci men Type: BLOOD SPECIMENOrdering Facility: [facility] Address: [address] [place] [address] Performed By: #### 5 8410-2 ####[facility] LABORATORYCLIA [id number] [place] [address] [place] CONSULTon 10-10-2021 CONSULT Normal [facility] Calcium.ionized [Moles/Vol]o n 10-10-2021 Calcium.ionized (BldV) [Mass/Vol] 0.96 mmol/L Low 1.08-1.30 [facility] Comment on above: Order Comment: Speci men Type: BLOOD SPECIMENOrdering Facility: [facility] HOSPITAL Address: [address] [place] [address] Performed By: #### 1 995-0 ####[facility]ATORYCLIA [id number] [address] [place] Calcium.ionized adjusted to pH 7.4 (Bld) [Moles/Vol] 0.98 mmol/L Low 1.08-1.30 [facility] Comment on above: Order Comment: Speci men Type: BLOOD SPECIMENOrdering Facility: [facility] Address: [address] [place] [address] Performed By: #### 1 995-0 ####[facility]ATORYCLIA [id number] [place] [address] [place] Magnesium SerPl-mCncon 10-10 Magnesium [Mass/Vol] 1.3 mg/dL Low 1.7-2.3 [facility] Comment on above: Order Comment: Speci men Type: BLOOD SPECIMENOrdering Facility: [facility] Address: [address] [place] [address] Performed By: #### 2 4321-2, 2777-1, 97175-4 ####[facility]ATORYCLIA [id number] [place] [address] [place] Phosphate SerPl-mCncon 10-10 Phosphate [Mass/Vol] 4.0 mg/dL Normal 2.7-4.8 [facility] Comment on above: Order Comment: Speci men Type: BLOOD SPECIMENOrdering Facility: [facility] Address: [address] [address] Performed By: #### 2 4321-2, 2777-1, 01411-4 ####[facility]ATORYCLIA [id number] [address] [place] US KIDNEY/BLADDERon 10-11-19 US KIDNEY/BLADDER Normal [facility] Urinalysis complete panel (U )on 10-10-2021 Bilirubin Ql (U) Negative Normal Negative [facility] Comment on above: Order Comment: Speci men Type: URINE SPECIMENOrdering Facility: [facility] Address: [address] [place] [address] Performed By: #### 2 4356-8 ####[facility]ATORYCLIA [id number] [address] Clarity (Unsp spec) Clear Normal Clear [facility] Comment on above: Order Comment: Speci men Type: URINE SPECIMENOrdering Facility: [facility] Address: [address] [place] [address] Performed By: #### 2 4356-8 ####[facility]ATORYCLIA [id number] [address] [place] [facility] Color (U) Colorless Normal yellow [facility] Comment on above: Order Comment: Speci men Type: URINE SPECIMENOrdering Facility: [facility] Address: [address] [address] Performed By: #### 2 4356-8 ####[facility]ATORYCLIA [id number] [address] OF [facility] Glucose Test strip (U) [Mass/Vol] Negative Normal Negative [facility] Comment on above: Order Comment: Speci men Type: URINE SPECIMENOrdering Facility: [facility] Address: [address] [address] Performed By: #### 2 4356-8 ####[facility]ORYCLIA [id number] [address] [place] Hemoglobin Ql (U) Trace Abnormal Negative [facility] Comment on above: Order Comment: Speci men Type: URINE SPECIMENOrdering Facility: [facility] Address: [address] [place] [address] Performed By: #### 2 4356-8 ####[facility] LABORATORYCLIA [id number] [address] Ketones Ql (U) Negative Normal Negative [facility] Comment on above: Order Comment: Speci men Type: URINE SPECIMENOrdering Facility: [facility] Address: [address] [place] [address] Performed By: #### 2 4356-8 ####[facility]ATORYCLIA [id number] [address] Leukocyte esterase Test strip Ql (U) 250 Karson/mL Abnormal Negative [facility] Comment on above: Order Comment: Speci men Type: URINE SPECIMENOrdering Facility: [facility] Address: [address] [place] [address] Performed By: #### 2 4356-8 ####[facility]ORYCLIA [id number] [address] [place] Nitrite Ql (U) Negative Normal Negative [facility] Comment on above: Order Comment: Speci men Type: URINE SPECIMENOrdering Facility: [facility] Address: [address] [place] [address] Performed By: #### 2 4356-8 ####[facility]ORYCLIA [id number] [address] [place] pH (U) 6.5 [pH] Normal 5.0-8.0 [facility] Comment on above: Order Comment: Speci men Type: URINE SPECIMENOrdering Facility: [facility] Address: [address] [place] [address] Performed By: #### 2 4356-8 ####[facility]ORYCLIA [id number] [address] [place] Protein (U) [Mass/Vol] Negative Normal Negative [facility] Comment on above: Order Comment: Speci men Type: URINE SPECIMENOrdering Facility: [facility] Address: [address] [place] [address] Performed By: #### 2 4356-8 ####[facility]ATORYCLIA [id number] [address] RBC LM.HPF (Urine sed) [#/Area] 3-5 /HPF Abnormal 0-3 /HPF [facility] Comment on above: Order Comment: Speci men Type: URINE SPECIMENOrdering Facility: [facility] Address: [address] [place] [address] Performed By: #### 2 4356-8 ####[facility]ORYCLIA [id number] [address] Specific gravity (U) [Rel density] 1.007 Normal 1.005-1.030 [facility] Comment on above: Order Comment: Speci men Type: URINE SPECIMENOrdering Facility: [facility] Address: [address] [place] [address] Performed By: #### 2 4356-8 ####[facility]ORYCLIA [id number] [address] Urobilinogen Ql (U) Normal Normal Negative [facility] Comment on above: Order Comment: Speci men Type: URINE SPECIMENOrdering Facility: [facility] Address: [address] [place] [address] Performed By: #### 2 4356-8 ####[facility]ORYCLIA [id number] [address] WBC LM.HPF (Urine sed) [#/Area] 6-10 /HPF Abnormal 0-5 /HPF [facility] Comment on above: Order Comment: Speci men Type: URINE SPECIMENOrdering Facility: [facility] Address: [address] [place] [address] Performed By: #### 2 4356-8 ####[facility]ORYCLIA [id number] [address] XR CHEST 1V FRONTALon 2021 XR CHEST 1V FRONTAL Normal [facility] ALLIED HEALTHon 10-09-2021 ALLIED HEALTH Normal [facility] ALLIED HEALTH Normal [facility] ANES PRE-OPon 10-09-2021 ANES PRE-OP Normal [facility] ANES PRE-OP Normal [facility] ARTERIAL BLOOD GASESon 10-09 BASE DEFICIT, ARTERIAL -1 mmol/L Normal -2-0 [facility] Comment on above: Order Comment: Speci men Type: ARTERIAL BLOOD SPECIMENOrdering Facility: [facility] Address: [address] [place] [address] Performed By: #### A LLBG ####[facility]ORYCLIA [id number] [address] Body temperature 96.08 [degF] Normal [facility] Comment on above: Order Comment: Speci men Type: ARTERIAL BLOOD SPECIMENOrdering Facility: [facility] Address: [address] [place] [address] Performed By: #### A LLBG ####[facility]ATORYCLIA [id number] [address] [place] CALCIUM IONIZED, PH CORRECTED 1.07 mmol/L Low 1.08-1.30 [facility] Comment on above: Order Comment: Speci men Type: ARTERIAL BLOOD SPECIMENOrdering Facility: [facility] Address: [address] [place] [address] Performed By: #### A LLBG ####[facility]ATORYCLIA [id number] [place] [address] [place] Calcium.ionized (BldV) [Mass/Vol] 1.07 mmol/L Low 1.08-1.30 [facility] Comment on above: Order Comment: Speci men Type: ARTERIAL BLOOD SPECIMENOrdering Facility: [facility] Address: [address] [place] [address] Performed By: #### A LLBG ####[facility]ATORYCLIA [id number] [address] [place] Carboxyhemoglobin (BldA) [Mass fraction] 1.2 % Normal 0.0-2.0 [facility] Comment on above: Order Comment: Speci men Type: ARTERIAL BLOOD SPECIMENOrdering Facility: [facility] Address: [address] [address] Result Comment: Carb oxyhemoglobin Reference Range for Smokers: 2.0-8.0% Performed By: #### A LLBG ####[facility]ORYCLIA [id number] [address] [place] CO2 (Bld) [Partial pressure] 39 mm Hg Normal 36-46 [facility] Comment on above: Order Comment: Speci men Type: ARTERIAL BLOOD SPECIMENOrdering Facility: [facility] Address: [address] [place] [address] Performed By: #### A LLBG ####[facility]ORYCLIA [id number] [address] [place] CO2 [Moles/Vol] 22 mmol/L Normal 22-28 [facility] Comment on above: Order Comment: Speci men Type: ARTERIAL BLOOD SPECIMENOrdering Facility: [facility] Address: [address] [place] [address] Performed By: #### A LLBG ####[facility]ATORYCLIA [id number] [address] [place] CO2 adjusted to patient's actual temperature (Bld) [Partial pressure] 36 mmHg Normal 36-46 [facility] Comment on above: Order Comment: Speci men Type: ARTERIAL BLOOD SPECIMENOrdering Facility: [facility] Address: [address] [address] Performed By: #### A LLBG ####[facility]ATORYCLIA [id number] [address] [place] Glucose [Mass/Vol] 164 mg/dL High 60-105 [facility] Comment on above: Order Comment: Speci men Type: ARTERIAL BLOOD SPECIMENOrdering Facility: [facility] Address: [address] [place], [place] [address] Performed By: #### A LLBG ####[facility]ATORYCLIA [id number] [address] [place] HCO3 (Bld) [Moles/Vol] 24 mmol/L Normal 22-26 [facility] Comment on above: Order Comment: Speci men Type: ARTERIAL BLOOD SPECIMENOrdering Facility: [facility] Address: [address] [place] [address] Performed By: #### A LLBG ####[facility]ORYCLIA [id number] [address] [place] Hematocrit (Bld) [Volume fraction] 32.9 % Low 36.0-46.0 [facility] Comment on above: Order Comment: Speci men Type: ARTERIAL BLOOD SPECIMENOrdering Facility: [facility] Address: [address] [place] [address] Performed By: #### A LLBG ####[facility]ORYCLIA [id number] [address] [place] Hemoglobin (Bld) [Mass/Vol] 10.6 g/dL Low 11.5-15.5 [facility] Comment on above: Order Comment: Speci men Type: ARTERIAL BLOOD SPECIMENOrdering Facility: [facility] Address: [address] [place] [address] Performed By: #### A LLBG ####[facility]ATORYCLIA [id number] [address] [place] Methemoglobin (Bld) [Mass fraction] 1.1 % Normal 0.0-1.5 [facility] Comment on above: Order Comment: Speci men Type: ARTERIAL BLOOD SPECIMENOrdering Facility: [facility] Address: [address] [place] [address] Performed By: #### A LLBG ####[facility]ATORYCLIA [id number] [address] [place] O2 THERAPY RA=Room Air Normal [facility] Comment on above: Order Comment: Speci men Type: ARTERIAL BLOOD SPECIMENOrdering Facility: [facility] Address: [address] [place] [address] Performed By: #### A LLBG ####[facility]ORYCLIA [id number] [address] Oxygen (Bld) [Partial pressure] 75 mm Hg Low 85-95 [facility] Comment on above: Order Comment: Speci men Type: ARTERIAL BLOOD SPECIMENOrdering Facility: [facility] Address: [address] [place] [address] Performed By: #### A LLBG ####[facility]ATORYCLIA [id number] [address] Oxygen adjusted to patient's actual temperature (Bld) [Partial pressure] 69 mmHg Low 85-95 [facility] Comment on above: Order Comment: Speci men Type: ARTERIAL BLOOD SPECIMENOrdering Facility: [facility] Address: [address] [place] [address] Performed By: #### A LLBG ####[facility]ATORYCLIA [id number] [address] [place] OXYGEN SATURATION, ARTERIAL 95 % Normal 95-98 [facility] Comment on above: Order Comment: Speci men Type: ARTERIAL BLOOD SPECIMENOrdering Facility: [facility] Address: [address] [place] [address] Performed By: #### A LLBG ####[facility]ORYCLIA [id number] [address] [place] Oxyhemoglobin (BldA) [Mass fraction] 93 % Low 95-98 [facility] Comment on above: Order Comment: Speci men Type: ARTERIAL BLOOD SPECIMENOrdering Facility: [facility] Address: [address] [place] [address] Performed By: #### A LLBG ####[facility]ATORYCLIA [id number] [address] [place] pH (Bld) 7.40 [pH] Normal 7.35-7.45 [facility] Comment on above: Order Comment: Speci men Type: ARTERIAL BLOOD SPECIMENOrdering Facility: [facility] Address: [address] [place] [address] Performed By: #### A LLBG ####[facility]ORYCLIA [id number] [address] pH adjusted to patient's actual temperature (Bld) 7.42 Normal 7.35-7.45 [facility] Comment on above: Order Comment: Speci men Type: ARTERIAL BLOOD SPECIMENOrdering Facility: [facility] Address: [address] [place] [address] Performed By: #### A LLBG ####[facility]ORYCLIA [id number] [address] [place] Potassium [Moles/Vol] 2.7 mmol/L Low 3.5-5.0 [facility] Comment on above: Order Comment: Speci men Type: ARTERIAL BLOOD SPECIMENOrdering Facility: [facility] Address: [address] [place] [address] Performed By: #### A LLBG ####[facility]ATORYCLIA [id number] [address] [place] Sodium [Moles/Vol] 133 mmol/L Low 136-144 [facility] Comment on above: Order Comment: Speci men Type: ARTERIAL BLOOD SPECIMENOrdering Facility: [facility] Address: [address] [place] [address] Performed By: #### A LLBG ####[facility]ATORYCLIA [id number] [place] [address] [place] Basic metabolic 2000 panelon 10-09-2021 Anion gap [Moles/Vol] 15 mmol/L Normal 9-18 [facility] Comment on above: Order Comment: Speci men Type: BLOOD SPECIMENOrdering Facility: [facility] Address: [address] [place] [address] Performed By: #### 1 9123-9, 2777-1, 53142-0 ####[facility]ORYCLIA [id number] [place] [address] [place] Calcium [Mass/Vol] 8.4 mg/dL Low 8.5-10.2 [facility] Comment on above: Order Comment: Speci men Type: BLOOD SPECIMENOrdering Facility: [facility] Address: [address] [place] [address] Performed By: #### 1 9123-9, 27710-20, 33439-8 ####[facility]ORYCLIA [id number] [place] [address] [place] Chloride [Moles/Vol] 96 mmol/L Low 97-105 [facility] Comment on above: Order Comment: Speci men Type: BLOOD SPECIMENOrdering Facility: [facility] Address: [address] [place] [address] Performed By: #### 1 9123-9, 27710-20, 63682-3 ####[facility]ORYCLIA [id number] [address] STATES OF [facility] CO2 [Moles/Vol] 23 mmol/L Normal 22-30 [facility] Comment on above: Order Comment: Speci men Type: BLOOD SPECIMENOrdering Facility: [facility] Address: [address] [place] [address] Performed By: #### 1 9123-9, 27710-20, ####[facility]ORYCLIA [id number] [address] [place] Creatinine [Mass/Vol] 0.37 mg/dL Low 0.58-0.96 [facility] Comment on above: Order Comment: Speci men Type: BLOOD SPECIMENOrdering Facility: [facility] Address: [address] [place] [address] Performed By: #### 1 9123-9, 27710-20, 55814-3 ####[facility]ORYCLIA [id number] [address] OF [facility] ESTIMATED GLOMERULAR FILTRATION RATE 106 mL/min/1.73m??? Normal >=60 [facility] Comment on above: Order Comment: Sharath lozano Type: BLOOD SPECIMENOrdering Facility: [facility] Address: [address] [place] [address] Result Comment: Lulu mated Glomerular Filtration Rate [...] GFR. Performed By: #### 1 9123-9, 2777-1, 54143-5 ####[facility]ITALCLIA [id number] [place] [address] [place] Glucose [Mass/Vol] 156 mg/dL High 74-99 [facility] Comment on above: Order Comment: Sharath lozano Type: BLOOD SPECIMENOrdering Facility: [facility] Address: [address] [place] [address] Result Comment: The [place] [employer] (ADA) provides guidance for cutoff [...] Standards of Medical Care in Diabetes 2016, [place] [employer]. Diabetes Care. 2016.39(Suppl 1). Performed By: #### 1 9123-9, 2777-1, 81248-1 ####[facility]ORYCLIA [id number] [place] [address] [place] Potassium [Moles/Vol] 3.3 mmol/L Low 3.7-5.1 [facility] Comment on above: Order Comment: Sharath [facility] Type: BLOOD SPECIMENOrdering Facility: [facility] Address: [address] [place] [address] Performed By: #### 1 9123-9, 2776-04, ####[facility]ORATORYCLIA [id number] [place] [address] [place] Sodium [Moles/Vol] 134 mmol/L Low 136-144 [facility] Comment on above: Order Comment: Speci men Type: BLOOD SPECIMENOrdering Facility: [facility] Address: [address] [place] [address] Performed By: #### 1 9123-9, 2776-04, ####[facility]ORYCLIA [id number] [place] [address] [place] Urea nitrogen [Mass/Vol] 7 mg/dL Normal 7-21 [facility] Comment on above: Order Comment: Speci men Type: BLOOD SPECIMENOrdering Facility: [facility] Address: [address] [place] [address] Performed By: #### 1 9123-9, 2776-04, ####[facility]ORYCLIA [id number] [place] [address] [place] Anion gap [Moles/Vol] 10 mmol/L Normal 9-18 [facility] Comment on above: Order Comment: Speci men Type: BLOOD SPECIMENOrdering Facility: [facility] Address: [address] [place] [address] Performed By: #### 2 777-1, 45663-7, ####[facility]ORYCLIA [id number] [place] [address] [place] Calcium [Mass/Vol] 7.6 mg/dL Low 8.5-10.2 [facility] Comment on above: Order Comment: Speci men Type: BLOOD SPECIMENOrdering Facility: [facility] Address: [address] [place] [address] Performed By: #### 2 777-1, 34081-3, ####[facility]ORYCLIA [id number] [address] [place] Chloride [Moles/Vol] 96 mmol/L Low 97-105 [facility] Comment on above: Order Comment: Speci men Type: BLOOD SPECIMENOrdering Facility: [facility] Address: [address] [place] [address] Performed By: #### 2 777-1, 24854-2, ####[facility]ORYCLIA [id number] [place] [id number] [facility] CO2 [Moles/Vol] 27 mmol/L Normal 22-30 [facility] Comment on above: Order Comment: Speci men Type: BLOOD SPECIMENOrdering Facility: [facility] Address: [address] [place] [address] Performed By: #### 2 777-1, 99022-3, ####[facility]CLIA [id number] [address] Creatinine [Mass/Vol] 0.49 mg/dL Low 0.58-0.96 [facility] Comment on above: Order Comment: Speci men Type: BLOOD SPECIMENOrdering Facility: [facility] Address: [address] [place] [address] Performed By: #### 2 777-1, 57484-0, ####[facility]ITALCLIA [id number] [address] ESTIMATED GLOMERULAR FILTRATION RATE 99 mL/min/1.73m??? Normal >=60 [facility] Comment on above: Order Comment: Speci men Type: BLOOD SPECIMENOrdering Facility: [facility] Address: [address] [place] [address] Result Comment: Lulu mated Glomerular Filtration Rate [...] actual GFR. Performed By: #### 2 777-1, 79029-8, ####[facility] LAB[facility]ATORYCLIA [id number] [place] [address] [place] Glucose [Mass/Vol] 106 mg/dL High 74-99 [facility] Comment on above: Order Comment: Sharath lozano Type: BLOOD SPECIMENOrdering Facility: [facility] Address: [address] [place] [address] Result Comment: The [place] [employer] (ADA) provides guidance for cutoff [...] Standards of Medical Care in Diabetes 2016, [place] [employer]. Diabetes Care. 2016.39(Suppl 1). Performed By: #### 2 777-1, 76938-4, ####[facility] LABORATORYCLIA [id number] [place] [address] [place] Potassium [Moles/Vol] 3.5 mmol/L Low 3.7-5.1 [facility] Comment on above: Order Comment: Sharath lozano Type: BLOOD SPECIMENOrdering Facility: [facility] Address: [address] [id number] Performed By: #### 2 777-1, 55968-5, ####[facility] LABORATORYCLIA [id number] [place] [address] [place] Sodium [Moles/Vol] 133 mmol/L Low 136-144 [facility] Comment on above: Order Comment: Sharath lozano Type: BLOOD SPECIMENOrdering Facility: [facility] Address: [address] [place] [address] Performed By: #### 2 777-1, 03851-1, 82704-2 ####[facility] LABORATORYCLIA [id number] [address] [place] [facility] Urea nitrogen [Mass/Vol] 6 mg/dL Low 7-21 [facility] Comment on above: Order Comment: Speci men Type: BLOOD SPECIMENOrdering Facility: [facility] Address: [address] [place] [address] Performed By: #### 2 777-1, 06773-4, ####[facility] LABORATORYCLIA [id number] [address] OF [facility] CBC panel Auto (Bld)on 10-09 Erythrocyte distribution width (RBC) [Ratio] 13.2 % Normal 11.5-15.0 [facility] Comment on above: Order Comment: Speci men Type: BLOOD SPECIMENOrdering Facility: [facility] Address: [address] [place] [address] Performed By: #### 5 8410-2 ####[facility] LABORATORYCLIA [id number] [address] [place] Hematocrit (Bld) [Volume fraction] 31.9 % Low 36.0-46.0 [facility] Comment on above: Order Comment: Speci men Type: BLOOD SPECIMENOrdering Facility: [facility] Address: [address] [place] [address] Performed By: #### 5 8410-2 ####[facility]ATORYCLIA [id number] [address] [place] Hemoglobin (Bld) [Mass/Vol] 11.0 g/dL Low 11.5-15.5 [facility] Comment on above: Order Comment: Speci men Type: BLOOD SPECIMENOrdering Facility: [facility] Address: [address] [place] [address] Performed By: #### 5 8410-2 ####[facility] LABORATORYCLIA [id number] [address] MCH (RBC) [Entitic mass] 32.7 pg Normal 26.0-34.0 [facility] Comment on above: Order Comment: Speci men Type: BLOOD SPECIMENOrdering Facility: [facility] Address: [address] [place] [address] Performed By: #### 5 8410-2 ####[facility]ORATORYCLIA [id number] [address] MCHC (RBC) [Mass/Vol] 34.5 g/dL Normal 30.5-36.0 [facility] Comment on above: Order Comment: Speci men Type: BLOOD SPECIMENOrdering Facility: [facility] Address: [address] [place] [address] Performed By: #### 5 8410-2 ####[facility]ATORYCLIA [id number] [address] MCV (RBC) [Entitic vol] 94.9 fL Normal 80.0-100.0 [facility] Comment on above: Order Comment: Speci men Type: BLOOD SPECIMENOrdering Facility: [facility] Address: [address] [place] [address] Performed By: #### 5 8410-2 ####[facility] LAB[facility]ATORYCLIA [id number] [address] Nucleated RBC (Bld) [#/Vol] 10*3/uL Normal <0.01 [facility] Comment on above: Order Comment: Speci men Type: BLOOD SPECIMENOrdering Facility: [facility] Address: [address] [place] [address] Performed By: #### 5 8410-2 ####[facility]ATORYCLIA [id number] [address] Platelet mean volume (Bld) [Entitic vol] 9.7 fL Normal 9.0-12.7 [facility] Comment on above: Order Comment: Speci men Type: BLOOD SPECIMENOrdering Facility: [facility] Address: [address] [place] [address] Performed By: #### 5 8410-2 ####[facility]ATORYCLIA [id number] [address] Platelets (Bld) [#/Vol] 301 10*3/uL Normal 150-400 [facility] Comment on above: Order Comment: Speci men Type: BLOOD SPECIMENOrdering Facility: [facility] Address: [address] [place] [address] Performed By: #### 5 8410-2 ####[facility]ATORYCLIA [id number] [address] RBC (Bld) [#/Vol] 3.36 10*6/uL Low 3.90-5.20 [facility] Comment on above: Order Comment: Speci men Type: BLOOD SPECIMENOrdering Facility: [facility] Address: [address] [place] [address] Performed By: #### 5 8410-2 ####[facility]ATORYCLIA [id number] [address] WBC (Bld) [#/Vol] 22.01 10*3/uL High 3.70-11.00 [facility] Comment on above: Order Comment: Speci men Type: BLOOD SPECIMENOrdering Facility: [facility] Address: [address] [place] [address] Performed By: #### 5 8410-2 ####[facility]ATORYCLIA [id number] [address] Erythrocyte distribution width (RBC) [Ratio] 13.4 % Normal 11.5-15.0 [facility] Comment on above: Order Comment: Speci men Type: BLOOD SPECIMENOrdering Facility: [facility] Address: [address] [place] [address] Performed By: #### 5 8410-2 ####[facility]ATORYCLIA [id number] [address] Hematocrit (Bld) [Volume fraction] 28.6 % Low 36.0-46.0 [facility] Comment on above: Order Comment: Speci men Type: BLOOD SPECIMENOrdering Facility: [facility] Address: [address] [place] [address] Performed By: #### 5 8410-2 ####[facility]ATORYCLIA [id number] [address] Hemoglobin (Bld) [Mass/Vol] 9.8 g/dL Low 11.5-15.5 [facility] Comment on above: Order Comment: Speci men Type: BLOOD SPECIMENOrdering Facility: [facility] Address: [address] [place] [address] Performed By: #### 5 8410-2 ####[facility]ATORYCLIA [id number] [address] MCH (RBC) [Entitic mass] 32.8 pg Normal 26.0-34.0 [facility] Comment on above: Order Comment: Speci men Type: BLOOD SPECIMENOrdering Facility: [facility] Address: [address] [place] [address] Performed By: #### 5 8410-2 ####[facility]ATORYCLIA [id number] [address] [place] MCHC (RBC) [Mass/Vol] 34.3 g/dL Normal 30.5-36.0 [facility] Comment on above: Order Comment: Speci men Type: BLOOD SPECIMENOrdering Facility: [facility] Address: [address] [place] [address] Performed By: #### 5 8410-2 ####[facility]ATORYCLIA [id number] [address] MCV (RBC) [Entitic vol] 95.7 fL Normal 80.0-100.0 [facility] Comment on above: Order Comment: Speci men Type: BLOOD SPECIMENOrdering Facility: [facility] Address: [address] Performed By: #### 5 8410-2 ####[facility]ATORYCLIA [id number] [address] STATES OF [facility] Nucleated RBC (Bld) [#/Vol] 10*3/uL Normal <0.01 [facility] Comment on above: Order Comment: Speci men Type: BLOOD SPECIMENOrdering Facility: [facility] Address: [address] [place] [address] Performed By: #### 5 8410-2 ####[facility]ATORYCLIA [id number] [address] [place] Platelet mean volume (Bld) [Entitic vol] 9.9 fL Normal 9.0-12.7 [facility] Comment on above: Order Comment: Speci men Type: BLOOD SPECIMENOrdering Facility: [facility] Address: [address] [place] [address] Performed By: #### 5 8410-2 ####[facility]ATORYCLIA [id number] [address] [place] Platelets (Bld) [#/Vol] 273 10*3/uL Normal 150-400 [facility] Comment on above: Order Comment: Speci men Type: BLOOD SPECIMENOrdering Facility: [facility] Address: [address] [place] [address] Performed By: #### 5 8410-2 ####[facility]ATORYCLIA [id number] [address] [place] RBC (Bld) [#/Vol] 2.99 10*6/uL Low 3.90-5.20 [facility] Comment on above: Order Comment: Speci men Type: BLOOD SPECIMENOrdering Facility: [facility] Address: [address] [place] [address] Performed By: #### 5 8410-2 ####[facility]ATORYCLIA [id number] [address] [place] WBC (Bld) [#/Vol] 10.93 10*3/uL Normal 3.70-11.00 [facility] Comment on above: Order Comment: Speci men Type: BLOOD SPECIMENOrdering Facility: [facility] Address: [address] [place] [address] Performed By: #### 5 8410-2 ####[facility]ATORYCLIA [id number] [address] Calcium.ionized [Moles/Vol]o n 10-09-2021 Calcium.ionized (BldV) [Mass/Vol] 1.02 mmol/L Low 1.08-1.30 [facility] Comment on above: Order Comment: Speci men Type: BLOOD SPECIMENOrdering Facility: [facility] Address: [address] [place] [address] Performed By: #### 1 995-0 ####[facility]ATORYCLIA [id number] [address] Calcium.ionized adjusted to pH 7.4 (Bld) [Moles/Vol] 1.00 mmol/L Low 1.08-1.30 [facility] Comment on above: Order Comment: Speci men Type: BLOOD SPECIMENOrdering Facility: [facility] Address: [address] [place] [address] Performed By: #### 1 995-0 ####[facility]ATORYCLIA [id number] [place] [address] [place] Magnesium SerPl-mCncon 10-09 Magnesium [Mass/Vol] 1.3 mg/dL Low 1.7-2.3 [facility] Comment on above: Order Comment: Speci men Type: BLOOD SPECIMENOrdering Facility: [facility] Address: [address] [place] [address] Performed By: #### 1 9123-9, 2777-1, 99667-5 ####[facility]ATORYCLIA [id number] [address] Magnesium [Mass/Vol] 1.5 mg/dL Low 1.7-2.3 [facility] Comment on above: Order Comment: Speci men Type: BLOOD SPECIMENOrdering Facility: [facility] Address: [address] [place] [address] Performed By: #### 2 777-1, 50908-9, ####[facility]ATORYCLIA [id number] [address] [place] NURSING PROGon 10-09-2021 NURSING PROG Normal [facility] OPERATIVE NOon 10-09-2021 OPERATIVE NO Normal [facility] Phosphate SerPl-mCncon 10-09 Phosphate [Mass/Vol] 4.3 mg/dL Normal 2.7-4.8 [facility] Comment on above: Order Comment: Speci men Type: BLOOD SPECIMENOrdering Facility: [facility] Address: [address] [place] [address] Performed By: #### 1 9123-9, 2777-1, ####[facility]ATORYCLIA [id number] [place] [address] [place] Phosphate [Mass/Vol] 3.8 mg/dL Normal 2.7-4.8 [facility] Comment on above: Order Comment: Speci men Type: BLOOD SPECIMENOrdering Facility: [facility] Address: [address] [place] [address] Performed By: #### 2 777-1, 21476-9, ####[facility]ATORYCLIA [id number] [address] [place] THERAPY NTon 10-09-2021 THERAPY NT Normal [facility] TYPE + SCREENon 10-09-2021 ABO A Normal [facility] Comment on above: Order Comment: Speci men Type: BLOOD SPECIMENOrdering Facility: [facility] Address: [address] [place] [address] Performed By: #### T SCR ####[facility] BANKCLIA [id number] [address] HISTORICAL AB SCR STATUS Negative Normal [facility] Comment on above: Order Comment: Speci men Type: BLOOD SPECIMENOrdering Facility: [facility] Address: [address] [place] [address] Performed By: #### T SCR ####[facility] BANKCLIA [id number] [address] Rh Nom (Bld) Positive Normal [facility] Comment on above: Order Comment: Speci men Type: BLOOD SPECIMENOrdering Facility: [facility] Address: [address] [place] [address] Performed By: #### T SCR ####[facility] BANKCLIA [id number] [address] TYPE AND SCREEN EXPIRATION 10/12/2021 23:59 Normal [facility] Comment on above: Order Comment: Speci men Type: BLOOD SPECIMENOrdering Facility: [facility] Address: [address] [place] [address] Performed By: #### T SCR ####[facility] BANKCLIA [id number] [address] OF [facility] XR CHEST 1V FRONTALon 2021 XR CHEST 1V FRONTAL Normal [facility] XR CHEST 1V FRONTAL Normal [facility] 25(OH)D3 SerPl-[facility] 2021 25-hydroxyvitamin D3 [Mass/Vol] 44.4 ng/mL Normal 30.0-100.0 [facility] Comment on above: Order Comment: Speci men Type: BLOOD SPECIMENOrdering Facility: [facility] Address: [address] [place] [address] Result Comment: Clas sification of 25 [place] Vitamin D status:Deficiency: <= 20.0 ng/ml.Insufficientcy: 21.0-29.0 ng/ml.Sufficiency: >= 30.0 ng/ml. Performed By: #### 1 989-3 ####[facility]ATORYCLIA [id number] [place] [address] [place] ALLIED HEALTHon 10-08-2021 ALLIED HEALTH Normal [facility] Basic metabolic 2000 panelon 10-08-2021 Anion gap [Moles/Vol] 9 mmol/L Normal 9-18 [facility] Comment on above: Order Comment: Speci men Type: BLOOD SPECIMENOrdering Facility: [facility] Address: [address] [place] [address] Performed By: #### 2 4321-2, , 2776-04 ####[facility]ATORYCLIA [id number] [place] [address] [place] Calcium [Mass/Vol] 7.1 mg/dL Low 8.5-10.2 [facility] Comment on above: Order Comment: Speci men Type: BLOOD SPECIMENOrdering Facility: [facility] Address: [address] [place] [address] Performed By: #### 2 4321-2, , 2776-04 ####[facility]ATORYCLIA [id number] [place] [address] [place] Chloride [Moles/Vol] 100 mmol/L Normal 97-105 [facility] Comment on above: Order Comment: Speci men Type: BLOOD SPECIMENOrdering Facility: [facility] Address: [address] [place] [address] Performed By: #### 2 4321-2, , 2776-04 ####[facility]ATORYCLIA [id number] [address] [id number] [place] CO2 [Moles/Vol] 24 mmol/L Normal 22-30 [facility] Comment on above: Order Comment: Speci men Type: BLOOD SPECIMENOrdering Facility: [facility] Address: [address] [place] [address] Performed By: #### 2 4321-2, , 2776- ####[facility]ATORYCLIA [id number] [place] [address] [place] Creatinine [Mass/Vol] 0.55 mg/dL Low 0.58-0.96 [facility] Comment on above: Order Comment: Sharath lozano Type: BLOOD SPECIMENOrdering Facility: [facility] Address: [address] [id number] Performed By: #### 2 4321-2, , 2776-04 ####[facility]ATORYCLIA [id number] [place] [id number] [place] ESTIMATED GLOMERULAR FILTRATION RATE 96 mL/min/1.73m??? Normal >=60 [facility] Comment on above: Order Comment: Sharath lozano Type: BLOOD SPECIMENOrdering Facility: [facility] Address: [address] [place] [address] Result Comment: Lulu mated Glomerular Filtration Rate [...] [facility]ORYCLIA [id number] [place] [address] [place] Glucose [Mass/Vol] 108 mg/dL High 74-99 [facility] Comment on above: Order Comment: Sharath lozano Type: BLOOD SPECIMENOrdering Facility: [facility] Address: [address] Result Comment: The [place] [employer] (ADA) provides guidance for cutoff [...] Standards of Medical Care in Diabetes 2016, [place] [employer]. Diabetes Care. 2016.39(Suppl 1). Performed By: #### 2 4321-2, , 2776-04 ####[facility] LAB[facility]ATORYCLIA [id number] [place] [address] [place] Potassium [Moles/Vol] 3.5 mmol/L Low 3.7-5.1 [facility] Comment on above: Order Comment: Speci men Type: BLOOD SPECIMENOrdering Facility: [facility] Address: [address] [place] [address] Performed By: #### 2 4321-2, , 2776-04 ####[facility] LABORATORYCLIA [id number] [address] STATES OF [facility] Sodium [Moles/Vol] 133 mmol/L Low 136-144 [facility] Comment on above: Order Comment: Speci men Type: BLOOD SPECIMENOrdering Facility: [facility] Address: [address] [place] [address] Performed By: #### 2 4321-2, , 2776-04 ####[facility] LABORATORYCLIA [id number] [address] [place] [facility] Urea nitrogen [Mass/Vol] 6 mg/dL Low 7-21 [facility] Comment on above: Order Comment: Speci men Type: BLOOD SPECIMENOrdering Facility: [facility] Address: [address] [address] Performed By: #### 2 4321-2, , 2776-04 ####[facility] LAB[facility]ATORYCLIA [id number] [address] [place] CBC panel Auto (Bld)on 10-08 Erythrocyte distribution width (RBC) [Ratio] 13.3 % Normal 11.5-15.0 [facility] Comment on above: Order Comment: Speci men Type: BLOOD SPECIMENOrdering Facility: [facility] Address: [address] [address] Performed By: #### 5 8410-2 ####[facility]ATORYCLIA [id number] [address] Hematocrit (Bld) [Volume fraction] 28.3 % Low 36.0-46.0 [facility] Comment on above: Order Comment: Speci men Type: BLOOD SPECIMENOrdering Facility: [facility] Address: [address] [place] [address] Performed By: #### 5 8410-2 ####[facility]ATORYCLIA [id number] [address] Hemoglobin (Bld) [Mass/Vol] 9.4 g/dL Low 11.5-15.5 [facility] Comment on above: Order Comment: Speci men Type: BLOOD SPECIMENOrdering Facility: [facility] Address: [address] [place] [address] Performed By: #### 5 8410-2 ####[facility]ATORYCLIA [id number] [address] MCH (RBC) [Entitic mass] 32.8 pg Normal 26.0-34.0 [facility] Comment on above: Order Comment: Speci men Type: BLOOD SPECIMENOrdering Facility: [facility] Address: [address] [place] [address] Performed By: #### 5 8410-2 ####[facility] LABORATORYCLIA [id number] [address] OF [facility] MCHC (RBC) [Mass/Vol] 33.2 g/dL Normal 30.5-36.0 [facility] Comment on above: Order Comment: Speci men Type: BLOOD SPECIMENOrdering Facility: [facility] Address: [address] [place] [address] Performed By: #### 5 8410-2 ####[facility]ATORYCLIA [id number] [address] MCV (RBC) [Entitic vol] 98.6 fL Normal 80.0-100.0 [facility] Comment on above: Order Comment: Speci men Type: BLOOD SPECIMENOrdering Facility: [facility] Address: [address] [place], [place] [id number] Performed By: #### 5 8410-2 ####[facility] LABORATORYCLIA [id number] [address] Nucleated RBC (Bld) [#/Vol] 10*3/uL Normal <0.01 [facility] Comment on above: Order Comment: Speci men Type: BLOOD SPECIMENOrdering Facility: [facility] Address: [address] [place], [place] [id number] Performed By: #### 5 8410-2 ####[facility]ATORYCLIA [id number] [address] [place] Platelet mean volume (Bld) [Entitic vol] 10.1 fL Normal 9.0-12.7 [facility] Comment on above: Order Comment: Speci men Type: BLOOD SPECIMENOrdering Facility: [facility] Address: [address] [place], [place] [id number] Performed By: #### 5 8410-2 ####[facility] LAB[facility]ATORYCLIA [id number] [address] Platelets (Bld) [#/Vol] 262 10*3/uL Normal 150-400 [facility] Comment on above: Order Comment: Speci men Type: BLOOD SPECIMENOrdering Facility: [facility] Address: [address] [place], [place] [id number] Performed By: #### 5 8410-2 ####[facility] LABORATORYCLIA [id number] [address] OF [place] RBC (Bld) [#/Vol] 2.87 10*6/uL Low 3.90-5.20 [facility] Comment on above: Order Comment: Speci men Type: BLOOD SPECIMENOrdering Facility: [facility] Address: [address] [place], [place] [id number] Performed By: #### 5 8410-2 ####[facility]ORATORYCLIA [id number] [address] STATES OF [facility] WBC (Bld) [#/Vol] 7.41 10*3/uL Normal 3.70-11.00 [facility] Comment on above: Order Comment: Speci men Type: BLOOD SPECIMENOrdering Facility: [facility] Address: [address] [place] [address] Performed By: #### 5 8410-2 ####[facility] LABORATORYCLIA [id number] [address] [place] Calcium.ionized [Moles/Vol]o n 10-08-2021 Calcium.ionized (BldV) [Mass/Vol] 0.99 mmol/L Low 1.08-1.30 [facility] Comment on above: Order Comment: Speci men Type: BLOOD SPECIMENOrdering Facility: [facility] Address: [address] [place] [address] Performed By: #### 1 995-0 ####[facility] LABORATORYCLIA [id number] [address] Calcium.ionized adjusted to pH 7.4 (Bld) [Moles/Vol] 0.96 mmol/L Low 1.08-1.30 [facility] Comment on above: Order Comment: Speci men Type: BLOOD SPECIMENOrdering Facility: [facility] Address: [address] [place] [address] Performed By: #### 1 995-0 ####[facility] LABORATORYCLIA [id number] [address] OF [place] Magnesium SerPl-mCncon 10-08 Magnesium [Mass/Vol] 1.8 mg/dL Normal 1.7-2.3 [facility] Comment on above: Order Comment: Speci men Type: BLOOD SPECIMENOrdering Facility: [facility] Address: [address] [place] [address] Performed By: #### 2 4321-2, 43124-5, 2777-1 ####[facility] LABORATORYCLIA [id number] [place], [place] [id number] [place] [address] OF [place] Phosphate [facility] 10-08 Phosphate [Mass/Vol] 3.4 mg/dL Normal 2.7-4.8 [facility] Comment on above: Order Comment: Speci men Type: BLOOD SPECIMENOrdering Facility: [facility] Address: [address] [place] [address] Performed By: #### 2 4321-2, 71654-4, 2777- ####[facility]ATORYCLIA [id number] [address] [place] THERAPY NTon 10-08-2021 THERAPY NT Normal [facility] XR CHEST 1V FRONTALon 2021 XR CHEST 1V FRONTAL Normal [facility] 25(OH)D3 [facility] 2021 25-hydroxyvitamin D3 [Mass/Vol] 50.5 ng/mL Normal 30.0-100.0 [facility] Comment on above: Order Comment: Speci men Type: BLOOD SPECIMENOrdering Facility: [facility] Address: [address] [place] [address] Result Comment: Clas sification of 25 [place] Vitamin D status:Deficiency: <= 20.0 ng/ml.Insufficientcy: 21.0-29.0 ng/ml.Sufficiency: >= 30.0 ng/ml. Performed By: #### 1 989-3 ####[facility]ATORYCLIA [id number] [address] [place] ALLIED HEALTHon 10-07-2021 ALLIED HEALTH Normal [facility] ALLIED HEALTH Normal [facility] ALLIED HEALTH Normal [facility] ALLIED HEALTH Normal [facility] ALLIED HEALTH Normal [facility] Basic metabolic 2000 panelon 10-07-2021 Anion gap [Moles/Vol] 8 mmol/L Low - [facility] Comment on above: Order Comment: Speci men Type: BLOOD SPECIMENOrdering Facility: [facility] Address: [address] [place] [address] Performed By: #### 2 4321-2, 2776-, ####[facility]ATORYCLIA [id number] [place] [address] [place] Calcium [Mass/Vol] 7.1 mg/dL Low 8.5-10.2 [facility] Comment on above: Order Comment: Speci men Type: BLOOD SPECIMENOrdering Facility: [facility] Address: [address] [place], [place] [id number] Performed By: #### 2 4321-2, 2776-04, ####[facility]ATORYCLIA [id number] [place] [address] [place] Chloride [Moles/Vol] 99 mmol/L Normal 97-105 [facility] Comment on above: Order Comment: Speci men Type: BLOOD SPECIMENOrdering Facility: [facility] Address: [address] [place] [address] Performed By: #### 2 4321-2, 2776-04, ####[facility]ATORYCLIA [id number] [place] [address] [place] CO2 [Moles/Vol] 24 mmol/L Normal 22-30 [facility] Comment on above: Order Comment: Speci men Type: BLOOD SPECIMENOrdering Facility: [facility] Address: [address] [place], [place] [phone] Performed By: #### 2 4321-2, 2776-04, ####[facility]ATORYCLIA [id number] [place] [address] [place] Creatinine [Mass/Vol] 0.51 mg/dL Low 0.58-0.96 [facility] Comment on above: Order Comment: Speci men Type: BLOOD SPECIMENOrdering Facility: [facility] Address: [address] [place], [place] [phone] Performed By: #### 2 4321-2, 2776-04, ####[facility]ATORYCLIA [id number] [place] [address] [place] ESTIMATED GLOMERULAR FILTRATION RATE 98 mL/min/1.73m??? Normal >=60 [facility] Comment on above: Order Comment: Cathymoe lozano Type: BLOOD SPECIMENOrdering Facility: [facility] Address: [address] [place], [place] [id number] Result Comment: Lulu mated Glomerular Filtration Rate [...] [facility]ATORYCLIA [id number] [place] [address] [place] Glucose [Mass/Vol] 112 mg/dL High 74-99 [facility] Comment on above: Order Comment: Sharath lozano Type: BLOOD SPECIMENOrdering Facility: [facility] Address: [address] [place] [address] Result Comment: The [place] Diabetes Association (ADA) provides guidance for cutoff [...] Standards of Medical Care in Diabetes 2016, [place] [employer] Association. Diabetes Care. 2016.39(Suppl 1). Performed By: #### 2 4321-2, 2777-, ####[facility]ATORYCLIA [id number] [place] [id number] [place] Potassium [Moles/Vol] 3.6 mmol/L Low 3.7-5.1 [facility] Comment on above: Order Comment: Speci men Type: BLOOD SPECIMENOrdering Facility: [facility] Address: [address] [place] [address] Performed By: #### 2 4321-2, 2776-04, ####[facility]ORATORYCLIA [id number] [address] STATES OF [facility] Sodium [Moles/Vol] 131 mmol/L Low 136-144 [facility] Comment on above: Order Comment: Speci men Type: BLOOD SPECIMENOrdering Facility: [facility] Address: [address] [place] [address] Performed By: #### 2 4321-2, 2776-04, ####[facility]ATORYCLIA [id number] [address] [place] Urea nitrogen [Mass/Vol] 10 mg/dL Normal 7-21 [facility] Comment on above: Order Comment: Speci men Type: BLOOD SPECIMENOrdering Facility: [facility] Address: [address] [place] [address] Performed By: #### 2 4321-2, 2776-04, ####[facility]ATORYCLIA [id number] [address] [place] Basophil percentageon 2021 Basophil percentage 10-25 SEEN /hpf 0-5 [facility] Work Phone: Bilirubin Test strip Ql (U)o n 10-07-2021 Bilirubin Ql (U) Negative Negative [facility] Work Phone: CBC panel Auto (Bld)on 10-07 Erythrocyte distribution width (RBC) [Ratio] 13.3 % Normal 11.5-15.0 [facility] Comment on above: Order Comment: Speci men Type: BLOOD SPECIMENOrdering Facility: [facility] Address: [address] [place] [address] Performed By: #### 5 8410-2 ####[facility] LABORATORYCLIA [id number] [address] OF [facility] Hematocrit (Bld) [Volume fraction] 28.4 % Low 36.0-46.0 [facility] Comment on above: Order Comment: Speci men Type: BLOOD SPECIMENOrdering Facility: [facility] Address: [address] [place] [address] Performed By: #### 5 8410-2 ####[facility]ATORYCLIA [id number] [address] OF [facility] Hemoglobin (Bld) [Mass/Vol] 9.6 g/dL Low 11.5-15.5 [facility] Comment on above: Order Comment: Speci men Type: BLOOD SPECIMENOrdering Facility: [facility] Address: [address] [place] [address] Performed By: #### 5 8410-2 ####[facility]ATORYCLIA [id number] [address] MCH (RBC) [Entitic mass] 32.1 pg Normal 26.0-34.0 [facility] Comment on above: Order Comment: Speci men Type: BLOOD SPECIMENOrdering Facility: [facility] Address: [address] [place] [address] Performed By: #### 5 8410-2 ####[facility]ATORYCLIA [id number] [address] [place] MCHC (RBC) [Mass/Vol] 33.8 g/dL Normal 30.5-36.0 [facility] Comment on above: Order Comment: Speci men Type: BLOOD SPECIMENOrdering Facility: [facility] Address: [address] [place] [address] Performed By: #### 5 8410-2 ####[facility]ATORYCLIA [id number] [address] MCV (RBC) [Entitic vol] 95.0 fL Normal 80.0-100.0 [facility] Comment on above: Order Comment: Speci men Type: BLOOD SPECIMENOrdering Facility: [facility] Address: [address] Performed By: #### 5 8410-2 ####[facility]ATORYCLIA [id number] [address] Nucleated RBC (Bld) [#/Vol] 10*3/uL Normal <0.01 [facility] Comment on above: Order Comment: Speci men Type: BLOOD SPECIMENOrdering Facility: [facility] Address: [address] [place] [address] Performed By: #### 5 8410-2 ####[facility]ATORYCLIA [id number] [address] Platelet mean volume (Bld) [Entitic vol] 9.7 fL Normal 9.0-12.7 [facility] Comment on above: Order Comment: Speci men Type: BLOOD SPECIMENOrdering Facility: [facility] Address: [address] [place] [address] Performed By: #### 5 8410-2 ####[facility]ATORYCLIA [id number] [address] Platelets (Bld) [#/Vol] 266 10*3/uL Normal 150-400 [facility] Comment on above: Order Comment: Speci men Type: BLOOD SPECIMENOrdering Facility: [facility] Address: [address] [place] [address] Performed By: #### 5 8410-2 ####[facility]ATORYCLIA [id number] [address] [place] RBC (Bld) [#/Vol] 2.99 10*6/uL Low 3.90-5.20 [facility] Comment on above: Order Comment: Speci men Type: BLOOD SPECIMENOrdering Facility: [facility] Address: [address] [place] [address] Performed By: #### 5 8410-2 ####[facility]ATORYCLIA [id number] [address] WBC (Bld) [#/Vol] 8.53 10*3/uL Normal 3.70-11.00 [facility] Comment on above: Order Comment: Speci men Type: BLOOD SPECIMENOrdering Facility: [facility] Address: [address] [place] [address] Performed By: #### 5 8410-2 ####[facility]ATORYCLIA [id number] [address] Erythrocyte distribution width (RBC) [Ratio] 13.2 % Normal 11.5-15.0 [facility] Comment on above: Order Comment: Speci men Type: BLOOD SPECIMENOrdering Facility: [facility] Address: [address] [place] [address] Performed By: #### 5 8410-2 ####[facility]ATORYCLIA [id number] [address] Hematocrit (Bld) [Volume fraction] 29.7 % Low 36.0-46.0 [facility] Comment on above: Order Comment: Speci men Type: BLOOD SPECIMENOrdering Facility: [facility] Address: [address] [place] [address] Performed By: #### 5 8410-2 ####[facility]ATORYCLIA [id number] [address] OF [facility] Hemoglobin (Bld) [Mass/Vol] 10.2 g/dL Low 11.5-15.5 [facility] Comment on above: Order Comment: Speci men Type: BLOOD SPECIMENOrdering Facility: [facility] Address: [address] [place] [address] Performed By: #### 5 8410-2 ####[facility]ATORYCLIA [id number] [address] MCH (RBC) [Entitic mass] 32.4 pg Normal 26.0-34.0 [facility] Comment on above: Order Comment: Speci men Type: BLOOD SPECIMENOrdering Facility: [facility] Address: [address] [place] [address] Performed By: #### 5 8410-2 ####[facility]ATORYCLIA [id number] [address] MCHC (RBC) [Mass/Vol] 34.3 g/dL Normal 30.5-36.0 [facility] Comment on above: Order Comment: Speci men Type: BLOOD SPECIMENOrdering Facility: [facility] Address: [address] [place] [address] Performed By: #### 5 8410-2 ####[facility]ATORYCLIA [id number] [address] MCV (RBC) [Entitic vol] 94.3 fL Normal 80.0-100.0 [facility] Comment on above: Order Comment: Speci men Type: BLOOD SPECIMENOrdering Facility: [facility] Address: [address] [place] [address] Performed By: #### 5 8410-2 ####[facility]ATORYCLIA [id number] [address] Nucleated RBC (Bld) [#/Vol] 10*3/uL Normal <0.01 [facility] Comment on above: Order Comment: Speci men Type: BLOOD SPECIMENOrdering Facility: [facility] Address: [address] [place] [address] Performed By: #### 5 8410-2 ####[facility]ATORYCLIA [id number] [address] Platelet mean volume (Bld) [Entitic vol] 9.9 fL Normal 9.0-12.7 [facility] Comment on above: Order Comment: Speci men Type: BLOOD SPECIMENOrdering Facility: [facility] Address: [address] [place] [address] Performed By: #### 5 8410-2 ####[facility]ATORYCLIA [id number] [address] [place] Platelets (Bld) [#/Vol] 308 10*3/uL Normal 150-400 [facility] Comment on above: Order Comment: Speci men Type: BLOOD SPECIMENOrdering Facility: [facility] Address: [address] [place] [address] Performed By: #### 5 8410-2 ####[facility]ATORYCLIA [id number] [address] STATES OF [facility] RBC (Bld) [#/Vol] 3.15 10*6/uL Low 3.90-5.20 [facility] Comment on above: Order Comment: Speci men Type: BLOOD SPECIMENOrdering Facility: [facility] Address: [address] [place] [address] Performed By: #### 5 8410-2 ####[facility]ATORYCLIA [id number] [address] STATES OF [facility] WBC (Bld) [#/Vol] 18.90 10*3/uL High 3.70-11.00 [facility] Comment on above: Order Comment: Speci men Type: BLOOD SPECIMENOrdering Facility: [facility] Address: [address] [place] [address] Performed By: #### 5 8410-2 ####[facility]ATORYCLIA [id number] [address] CONFIR[place] BLOOD TYPEon 022 ABO A Normal [facility] Comment on above: Order Comment: Speci men Type: BLOOD SPECIMENOrdering Facility: [facility] Address: [address] [place] [address] Performed By: #### C ONABO ####[facility] BANKCLIA [id number] [address] Rh Nom (Bld) Positive Normal [facility] Comment on above: Order Comment: Speci men Type: BLOOD SPECIMENOrdering Facility: [facility] Address: [address] [place] [address] Performed By: #### C ONABO ####[facility] BANKCLIA [id number] [address] [place] CONSULTon 10-07-2021 CONSULT Normal [facility] CONSULT Normal [facility] CT BRAIN WO IVCONon 10-08-[address] BRAIN WO IVCON Normal [facility] CT BRAIN WO IVCON Normal [facility] CT CERVICAL SPINE WO IVCONon 10-07-2021 CT CERVICAL SPINE WO IVCON Normal [facility] CT CHEST WO IVCONon 10-08-[address] CHEST WO IVCON Normal [facility] CTA HEAD W IVCONon 2 CTA HEAD W IVCON Normal [facility] CTA NECK W IVCONon 2 CTA NECK W IVCON Normal [facility] Calcium.ionized [Moles/Vol]o n 10-07-2021 Calcium.ionized (BldV) [Mass/Vol] 1.00 mmol/L Low 1.08-1.30 [facility] Comment on above: Order Comment: Speci men Type: BLOOD SPECIMENOrdering Facility: [facility] Address: [address] [place] [address] Performed By: #### 1 995-0 ####[facility]ATORYCLIA [id number] [address] Calcium.ionized adjusted to pH 7.4 (Bld) [Moles/Vol] 0.96 mmol/L Low 1.08-1.30 [facility] Comment on above: Order Comment: Speci men Type: BLOOD SPECIMENOrdering Facility: [facility] Address: [address] [place] [address] Performed By: #### 1 995-0 ####[facility]ORATORYCLIA [id number] [address] [place] Comprehensive metabolic 2000 panelon 10-07-2021 Albumin [Mass/Vol] 4.0 g/dL Normal 3.9-4.9 [facility] Comment on above: Order Comment: Speci men Type: BLOOD SPECIMENOrdering Facility: [facility] Address: [address] [place] [address] Performed By: #### 2 4323-8 ####[facility]ORATORYCLIA [id number] [place], [place] [id number] [place] [address] [place] ALP [Catalytic activity/Vol] 66 U/L Normal 34-123 [facility] Comment on above: Order Comment: Speci men Type: BLOOD SPECIMENOrdering Facility: [facility] Address: [address] [place] [address] Performed By: #### 2 4323-8 ####[facility]ATORYCLIA [id number] [address] [place] ALT With P-5'-P [Catalytic activity/Vol] 21 U/L Normal 7-38 [facility] Comment on above: Order Comment: Speci men Type: BLOOD SPECIMENOrdering Facility: [facility] Address: [address] [place] [address] Performed By: #### 2 4323-8 ####[facility]ATORYCLIA [id number] [address] Anion gap [Moles/Vol] 10 mmol/L Normal 9-18 [facility] Comment on above: Order Comment: Speci men Type: BLOOD SPECIMENOrdering Facility: [facility] Address: [address] [place] [address] Performed By: #### 2 4323-8 ####[facility]ATORYCLIA [id number] [address] [place] AST With P-5'-P [Catalytic activity/Vol] 39 U/L High 13-35 [facility] Comment on above: Order Comment: Speci men Type: BLOOD SPECIMENOrdering Facility: [facility] Address: [address] [place] [address] Performed By: #### 2 4323-8 ####[facility]ATORYCLIA [id number] [address] [place] Bilirubin [Mass/Vol] 0.5 mg/dL Normal 0.2-1.3 [facility] Comment on above: Order Comment: Speci men Type: BLOOD SPECIMENOrdering Facility: [facility] Address: [address] [place] [place] [address] Performed By: #### 2 4323-8 ####[facility] LABORATORYCLIA [id number] [address] [place] Calcium [Mass/Vol] 8.1 mg/dL Low 8.5-10.2 [facility] Comment on above: Order Comment: Speci men Type: BLOOD SPECIMENOrdering Facility: [facility] Address: [address] [place] [address] Performed By: #### 2 4323-8 ####[facility] LABORATORYCLIA [id number] [place] [address] [place] Chloride [Moles/Vol] 93 mmol/L Low 97-105 [facility] Comment on above: Order Comment: Speci men Type: BLOOD SPECIMENOrdering Facility: [facility] Address: [address] [place] [address] Performed By: #### 2 4323-8 ####[facility]ATORYCLIA [id number] [address] [place] CO2 [Moles/Vol] 25 mmol/L Normal 22-30 [facility] Comment on above: Order Comment: Speci men Type: BLOOD SPECIMENOrdering Facility: [facility] Address: [address] [place] [address] Performed By: #### 2 4323-8 ####[facility]ATORYCLIA [id number] [address] [place] Creatinine [Mass/Vol] 0.60 mg/dL Normal 0.58-0.96 [facility] Comment on above: Order Comment: Speci men Type: BLOOD SPECIMENOrdering Facility: [facility] Address: [address] [place] [address] Performed By: #### 2 4323-8 ####[facility]ATORYCLIA [id number] [address] ESTIMATED GLOMERULAR FILTRATION RATE 94 mL/min/1.73m??? Normal >=60 [facility] Comment on above: Order Comment: Sharath lozano Type: BLOOD SPECIMENOrdering Facility: [facility] Address: [address] [place], [place] [id number] Result Comment: Lulu mated Glomerular Filtration Rate [...] [facility]ORYCLIA [id number] [place] [address] [place] Glucose [Mass/Vol] 143 mg/dL High 74-99 [facility] Comment on above: Order Comment: Sharath lozano Type: BLOOD SPECIMENOrdering Facility: [facility] Address: [address] [place], [place] [id number] Result Comment: The [place] [employer] (ADA) provides guidance for cutoff [...] Standards of Medical Care in Diabetes 2016, [place] [employer]. Diabetes Care. 2016.39(Suppl 1). Performed By: #### 2 4323-8 ####[facility]ORYCLIA [id number] [place] [address] [place] Potassium [Moles/Vol] 3.8 mmol/L Normal 3.7-5.1 [facility] Comment on above: Order Comment: Sharath lozano Type: BLOOD SPECIMENOrdering Facility: [facility] Address: [address] [address] Performed By: #### 2 4323-8 ####[facility]ORY[facility] [id number] [place] Protein [Mass/Vol] 6.0 g/dL Low 6.3-8.0 [facility] Comment on above: Order Comment: Speci men Type: BLOOD SPECIMENOrdering Facility: [facility] Address: [address] [place] [address] Performed By: #### 2 4323-8 ####[facility]CL[facility] [id number] [address] [place] Sodium [Moles/Vol] 128 mmol/L Low 136-144 [facility] Comment on above: Order Comment: Speci men Type: BLOOD SPECIMENOrdering Facility: [facility] Address: [address] [place] [address] Performed By: #### 2 4323-8 ####[facility] LABORATORYCLIA [id number] [address] [place] Urea nitrogen [Mass/Vol] 16 mg/dL Normal 7-21 [facility] Comment on above: Order Comment: Speci men Type: BLOOD SPECIMENOrdering Facility: [facility] Address: [address] [place] [address] Performed By: #### 2 4323-8 ####[facility] LABORATORYCLIA [id number] [address] [place] ED NOTEon 10-07-2021 ED NOTE HNO ID: [id number] Author: Catherine Covarrubias RN Service: ? Author Type: Registered Nurse Type: ED Notes Filed: 10/07/2021 2:48 AM Note Text: Bed: 19-ED Expected date: Expected time: Means of arrival: Comments: T2-transfer Normal [facility] ED NOTE HNO ID: [id number] Author: Giuliana Rodriguez RN Service: Emergency Medicine Author Type: Registered Nurse Type: ED Notes Filed: 10/07/2021 2:36 AM Note Text: Chest tube + for bloody output Levin +clear yellow urine Normal [facility] ED NOTE Normal [facility] ED PROV NOTEon 10-07-2021 ED PROV NOTE Normal [facility] Ethanol SerPl-mCncon 022 Ethanol [Mass/Vol] mg/dL Normal <11 [facility] Comment on above: Order Comment: Speci men Type: BLOOD SPECIMENOrdering Facility: [facility] Address: [address] [place] [address] Performed By: #### 5 643-2 ####[facility] LABORATORYCLIA [id number] [place] [address] [place] HISTORY PHYSICALon HISTORY PHYSICAL Normal [facility] INR in Blood by Coagulation assayon 10-07-2021 INR Coag (Bld) [Relative time] 1.2 {INR} [facility] Work Phone: Ketones Test strip Ql (U)on 10-07-2021 Ketones Ql (U) Negative Negative [facility] Work Phone: Laboratory - Coagulationon 0 10-07-2021 aPTT Coag (Bld) [Time] 29.6 s 24.1-36.2 [facility] Work Phone: PT Coag (PPP) [Time] 14.6 s 11.7-14.9 [facility] Work Phone: Magnesium SerPl-mCncon 10-07 Magnesium [Mass/Vol] 2.2 mg/dL Normal 1.7-2.3 [facility] Comment on above: Order Comment: Speci men Type: BLOOD SPECIMENOrdering Facility: [facility] Address: [address] [place] [address] Performed By: #### 2 4321-2, 2777-1, 76904-4 ####[facility] LAB[facility]ATORYCLIA [id number] [place] [address] [place] Magnesium [Mass/Vol] 1.5 mg/dL Low 1.7-2.3 [facility] Comment on above: Order Comment: Speci men Type: BLOOD SPECIMENOrdering Facility: [facility] Address: [address] [place] [address] Performed By: #### 1 9123-9, 2777-1 ####[facility]ATORYCLIA [id number] [address] [place] Mucus LM Ql (Urine sed)on Mucus Ql (Urine sed) 0 SEEN /hpf Pimentel [facility] Work Phone: Nitrite Test strip Ql (U)on 10-07-2021 Nitrite Ql (U) Negative Negative [facility] Work Phone: PT panel Coag (PPP)on 2021 INR Coag (PPP) [Relative time] 1.0 {INR} Normal 0.9-1.3 [facility] Comment on above: Order Comment: Speci men Type: BLOOD SPECIMENOrdering Facility: [facility] Address: [address] [place] [phone] Result Comment: Ana min K Antagonist (VKA) Therapeutic Range: INR 2 to 3 (Target INR of 2.5)Note: For patients treated with VKA drugs, such as warfarin, the [employer] 2012 Guideline recommends [...] al. Chest 2012, 141:7S-47SNishimura RA, et al. [facility] 2017, 70: 252-289 Performed By: #### 1 4979-9, 65331-5 ####[facility]ATORYCLIA [id number] [address] [place] PT Coag (PPP) [Time] 11.1 s Normal 9.7-13.0 [facility] Comment on above: Order Comment: Speci men Type: BLOOD SPECIMENOrdering Facility: [facility] Address: [address] [place] [address] Performed By: #### 1 4979-9, 45275-4 ####[facility]ATORYCLIA [id number] [place] [id number] [place] Phosphate SerPl-mCncon 10-07 Phosphate [Mass/Vol] 3.4 mg/dL Normal 2.7-4.8 [facility] Comment on above: Order Comment: Speci men Type: BLOOD SPECIMENOrdering Facility: [facility] Address: [address] [place] [address] Performed By: #### 2 4321-2, 2777-1, 29514-4 ####[facility]ATORYCLIA [id number] [place] [address] [place] Phosphate [Mass/Vol] 3.4 mg/dL Normal 2.7-4.8 [facility] Comment on above: Order Comment: Speci men Type: BLOOD SPECIMENOrdering Facility: [facility] Address: [address] [place] [address] Performed By: #### 1 9123-9, 2777-1 ####[facility]ATORYCLIA [id number] [place] [address] [place] Protein Test strip Ql (U)on 10-07-2021 Protein Ql (U) 15 mg/dl Negative [facility] Work Phone: SARS-CoV-2 RNA Resp Ql LEONA+p robeon 10-07-2021 SARS-CoV-2 (COVID-19) RNA LEONA+probe Ql (Resp) COVID 19 RESULT: SARS-CoV-2 (Agent of COVID-19) Not Detected by RT-PCR or equivalent method. This test has been authorized by FDA under an Emergency Use Authorization (EUA). Normal [facility] Comment on above: Performed By: #### 9 4500-6 ####[facility]ATORYCLIA [id number] [place] [address] [place] STAPH AUREUS PCRon 2 S. aureus and MRSA panel LEONA+probe (Nose) Normal Negative [facility] Comment on above: Order Comment: Speci men Type: SWAB OF INTERNAL NOSEOrdering Facility: [facility] Address: [address] [place] [address] Result Comment: Nega tive for Staphylococcus aureus by PCR.Negative for MRSA by PCR Performed By: #### S APCR ####[facility]ATORYCLIA [id number] [place] [address] [place] Squamous epithelial cells de tection in urine sediment by light microscopyon 10-07-2021 Epithelial cells.squamous LM Ql (Urine sed) 0 SEEN /hpf 5-10 [facility] Work Phone: TOX SCREEN ROUT URon 022 Amphetamines Confirm (U) [Mass/Vol] Negative Normal Negative [facility] Comment on above: Order Comment: Speci men Type: URINE SPECIMENOrdering Facility: [facility] Address: [address] [place] [address] Result Comment: Cuto ff threshold at 1000 ng/mL. Performed By: #### U TOX2 ####[facility]ATORYCLIA [id number] [place] [address] [place] BARBITURATES, URINE Negative Normal Negative [facility] Comment on above: Order Comment: Speci men Type: URINE SPECIMENOrdering Facility: [facility] Address: [address] [place] [address] Result Comment: Cuto ff threshold at 200 ng/mL. Performed By: #### U TOX2 ####[facility]ATORYCLIA [id number] [place] [address] [place] BENZODIAZEPINES, UR Negative Normal Negative [facility] Comment on above: Order Comment: Speci men Type: URINE SPECIMENOrdering Facility: [facility] Address: [address] [place] [address] Result Comment: Cuto ff threshold at 200 ng/mL. Performed By: #### U TOX2 ####[facility]ORYCLIA [id number] [place] [address] [place] [facility] [place] CANNABINOIDS,URINE Negative Normal Negative [facility] Comment on above: Order Comment: Speci men Type: URINE SPECIMENOrdering Facility: [facility] Address: [address] [place] [address] Result Comment: Cuto ff threshold at 50 ng/mL. Performed By: #### U TOX2 ####[facility]ORYCLIA [id number] [place] [address] [place] Cocaine Ql (U) Negative Normal Negative [facility] Comment on above: Order Comment: Speci men Type: URINE SPECIMENOrdering Facility: [facility] Address: [address] [place] [address] Result Comment: Cuto ff threshold at 300 ng/mL. Performed By: #### U TOX2 ####[facility]ATORYCLIA [id number] [address] Ethanol (U) [Mass/Vol] <11 Normal <11 [facility] Comment on above: Order Comment: Speci men Type: URINE SPECIMENOrdering Facility: [facility] Address: [address] [place] [address] Performed By: #### U TOX2 ####[facility]ORYCLIA [id number] [address] [place] Opiates Screen Ql (U) Positive Abnormal Negative [facility] Comment on above: Order Comment: Speci men Type: URINE SPECIMENOrdering Facility: [facility] Address: [address] [place] [address] Result Comment: Cuto ff threshold at 300 ng/mL. Performed By: #### U TOX2 ####[facility]ORYCLIA [id number] [place] [address] [place] oxyCODONE cutoff Screen (U) [Mass/Vol] Negative Normal Negative [facility] Comment on above: Order Comment: Speci men Type: URINE SPECIMENOrdering Facility: [facility] Address: [address] [place] [address] Result Comment: Cuto ff threshold at 100 ng/mL. Performed By: #### U TOX2 ####[facility]ATORYCLIA [id number] [address] Phencyclidine Ql (U) Negative Normal Negative [facility] Comment on above: Order Comment: Speci men Type: URINE SPECIMENOrdering Facility: [facility] Address: [address] [place] [address] Result Comment: Cuto ff threshold at 25 ng/mL. Performed By: #### U TOX2 ####[facility]ATORYCLIA [id number] [address] TYPE + SCREENon 10-07-2021 ABO A Normal [facility] Comment on above: Order Comment: Speci men Type: BLOOD SPECIMENOrdering Facility: [facility] Address: [address] [place] [address] Performed By: #### T SCR ####[facility] BANKCLIA [id number] [address] HISTORICAL AB SCR STATUS Negative [facility] Comment on above: Order Comment: Speci men Type: BLOOD SPECIMENOrdering Facility: [facility] Address: [address] [place] [address] Performed By: #### T SCR ####[facility] BANKCLIA [id number] [address] Rh Nom (Bld) Positive Normal [facility] Comment on above: Order Comment: Speci men Type: BLOOD SPECIMENOrdering Facility: [facility] Address: [address] [place] [address] Performed By: #### T SCR ####[facility] BANKCLIA [id number] [address] OF [facility] TYPE AND SCREEN EXPIRATION 10/10/2021 23:59 Normal [facility] Comment on above: Order Comment: Speci men Type: BLOOD SPECIMENOrdering Facility: [facility] Address: [address] [place] [address] Performed By: #### T SCR ####[facility]LO[facility] BANKCLIA [id number] [address] Urinalysis complete panel (U )on 10-07-2021 Bilirubin Ql (U) Negative Normal Negative [facility] Comment on above: Order Comment: Speci men Type: URINE SPECIMENOrdering Facility: [facility] Address: [address] [place] [address] Performed By: #### 2 4356-8 ####[facility]ATORYCLIA [id number] [address] [place] Clarity (Unsp spec) Clear Normal Clear [facility] Comment on above: Order Comment: Speci men Type: URINE SPECIMENOrdering Facility: [facility] Address: [address] [place] [address] Performed By: #### 2 4356-8 ####[facility]ATORYCLIA [id number] [address] STATES OF [facility] Color (U) Light Yellow Normal yellow [facility] Comment on above: Order Comment: Speci men Type: URINE SPECIMENOrdering Facility: [facility] Address: [address] [place] [address] Performed By: #### 2 4356-8 ####[facility]ATORYCLIA [id number] [address] Glucose Test strip (U) [Mass/Vol] Negative Normal Negative [facility] Comment on above: Order Comment: Speci men Type: URINE SPECIMENOrdering Facility: [facility] Address: [address] [place] [address] Performed By: #### 2 4356-8 ####[facility]ATORYCLIA [id number] [address] [place] Hemoglobin Ql (U) Negative Normal Negative [facility] Comment on above: Order Comment: Speci men Type: URINE SPECIMENOrdering Facility: [facility] Address: [address] [place] [address] Performed By: #### 2 4356-8 ####[facility]ATORYCLIA [id number] [address] Ketones Ql (U) Negative Normal Negative [facility] Comment on above: Order Comment: Speci men Type: URINE SPECIMENOrdering Facility: [facility] Address: [address] [place] [address] Performed By: #### 2 4356-8 ####[facility] LABORATORYCLIA [id number] [address] Leukocyte esterase Test strip Ql (U) 500 Karson/mL Abnormal Negative [facility] Comment on above: Order Comment: Speci men Type: URINE SPECIMENOrdering Facility: [facility] Address: [address] [place] [address] Performed By: #### 2 4356-8 ####[facility]ORYCLIA [id number] [address] [place] Nitrite Ql (U) Negative Normal Negative [facility] Comment on above: Order Comment: Speci men Type: URINE SPECIMENOrdering Facility: [facility] Address: [address] [place] [address] Performed By: #### 2 4356-8 ####[facility]ATORYCLIA [id number] [address] [place] pH (U) 6.5 [pH] Normal 5.0-8.0 [facility] Comment on above: Order Comment: Speci men Type: URINE SPECIMENOrdering Facility: [facility] Address: [address] [place] [address] Performed By: #### 2 4356-8 ####[facility]ATORYCLIA [id number] [address] [place] Protein (U) [Mass/Vol] Negative Normal Negative [facility] Comment on above: Order Comment: Speci men Type: URINE SPECIMENOrdering Facility: [facility] Address: [address] [place] [address] Performed By: #### 2 4356-8 ####[facility]ATORYCLIA [id number] [address] RBC LM.HPF (Urine sed) [#/Area] 0-3 /HPF Normal 0-3 /HPF [facility] Comment on above: Order Comment: Speci men Type: URINE SPECIMENOrdering Facility: [facility] Address: [address] [place] [address] Performed By: #### 2 4356-8 ####[facility]ATORYCLIA [id number] [address] Specific gravity (U) [Rel density] >1.040 High 1.005-1.030 [facility] Comment on above: Order Comment: Speci men Type: URINE SPECIMENOrdering Facility: [facility] Address: [address] [place] [address] Performed By: #### 2 4356-8 ####[facility]ORYCLIA [id number] [address] Urobilinogen Ql (U) Normal Normal Negative [facility] Comment on above: Order Comment: Speci men Type: URINE SPECIMENOrdering Facility: [facility] Address: [address] [place] [address] Performed By: #### 2 4356-8 ####[facility]ATORYCLIA [id number] [address] WBC LM.HPF (Urine sed) [#/Area] /[HPF] Abnormal 0-5 /HPF [facility] Comment on above: Order Comment: Speci men Type: URINE SPECIMENOrdering Facility: [facility] Address: [address] [place] [address] Performed By: #### 2 4356-8 ####[facility]ORYCLIA [id number] [address] Urine blood detectionon 09-20 RBC Ql (U) Negative Negative [facility] Work Phone: RBC Ql (U) 0-5 SEEN /hpf 0-5 [facility] Work Phone: Urine clarityon 10-07-2021 Clarity (U) Clear Clear [facility] Work Phone: Urine color determinationon 10-07-2021 Color (U) Yellow Yellow [facility] Work Phone: Urine glucose detectionon Glucose Ql (U) Normal mg/dl Normal [facility] Work Phone: Urine leukocyte esterase det ection by dipstickon 10-07-2021 Leukocyte esterase Test strip Ql (U) 100 /ul Negative [facility] Work Phone: Urine pHon 10-07-2021 pH (U) 7.0 [pH] 5.0 - 8.0 [facility] Work Phone: Urine sediment bacteria coun t by microscopy (number/high power field)on 10-07-2021 Bacteria LM.HPF (Urine sed) [#/Area] 3 /[HPF] None Seen [facility] Work Phone: Urine specific gravity measu rementon 10-07-2021 Specific gravity (U) [Rel density] 1.010 1.002-1.030 [facility] Work Phone: Urobilinogen Auto test strip Ql (U)on 10-07-2021 Urobilinogen Ql (U) Normal mg/dl Normal [facility] Work Phone: XR CHEST 1V FRONTALon 2021 XR CHEST 1V FRONTAL Normal [facility] XR KNEE 2V AP/LAT RTon 10-07 XR KNEE 2V AP/LAT RT Normal [facility] aPTT PPPon 10-07-2021 aPTT Coag (PPP) [Time] 26.3 s Normal 23.0-32.4 [facility] Comment on above: Order Comment: Speci men Type: BLOOD SPECIMENOrdering Facility: [facility] Address: [address] [place] [address] Performed By: #### 1 4979-9, 82971-4 ####[facility]ATORYCLIA [id number] [place] [address] [place] Absolute lymphocyte counton 10-06-2021 Lymphocytes Auto (Unsp spec) [#/Vol] 0.86 10*3/uL 0.83-4.51 [facility] Work Phone: Basophil percentageon 2021 Basophils/100 WBC (Bld) 0.3 % 0-1 [facility] Work Phone: Bilirubin [Mass/Vol] 0.50 mg/dL 0.20-1.00 [facility] Work Phone: Comment on above: For patients on eltr ombopag therapy, use of Dimension [place] TBIL is not recommended. Chloride [Moles/Vol] 96 mmol/L 98-107 [facility] Work Phone: Eosinophils/100 WBC (Bld) 0.3 % 0-5 [facility] Work Phone: Glucose [Mass/Vol] 169 mg/dL 74-106 [facility] Work Phone: Comment on above: Fasting Glucose resu lt greater than or equal to 126 mg/dL suggests DIABETES MELLITUS per A.D.A. criteria. Neutrophils (Bld) [#/Vol] 28.5 10*3/uL 2.0-7.7 [facility] Work Phone: Neutrophils/100 WBC (Bld) 90.5 % 47-70 [facility] Work Phone: Potassium [Moles/Vol] 3.1 mmol/L 3.5-5.1 [facility] Work Phone: Protein [Mass/Vol] 6.5 g/dL 6.4-8.2 [facility] Work Phone: Sodium [Moles/Vol] 130 mmol/L 136-145 [facility] Work Phone: WBC (Bld) [#/Vol] 31.5 10*3/uL 4.4-11.0 [facility] Work Phone: Comment on above: CRITICAL VALUE VERIF IED. CALLED TO GIANNA CHAIREZ10/06/21 Ronen Bolton.RESULTS READ BACK BY SAME . Blood erythrocytes count (nu mber/volume)on 10-06-2021 RBC (Bld) [#/Vol] 3.16 10*6/uL 4.2-5.4 [facility] Work Phone: Blood hemoglobin measurement (mass/volume)on 10-06-2021 Hemoglobin (Bld) [Mass/Vol] 10.3 g/dL 12.0-15.0 [facility] Work Phone: Blood lymphocytes/100 leukoc yteson 10-06-2021 Lymphocytes/100 WBC (Bld) 2.7 % 19-41 [facility] Work Phone: Blood manual differential co mment interpretation (narrative result)on 10-06-2021 Manual differential comment Donnie (Bld) [Interp] SCANNED [facility] Work Phone: Blood monocytes/100 leukocyt eson 10-06-2021 Monocytes/100 WBC (Bld) 5.3 % 0-10 [facility] Work Phone: Blood platelet mean volumeon 10-06-2021 Platelet mean volume (Bld) [Entitic vol] 9.9 fL 6.2-12.0 [facility] Work Phone: [phone] Determination of erythrocyte mean corpuscular volume (MCV)on 10-06-2021 MCV (RBC) [Entitic vol] 95.6 fL 81-99 [facility] Work Phone: [phone] Hematocrit Auto (Bld) [Volum e fraction]on 10-06-2021 Hematocrit (Bld) [Volume fraction] 30.2 % 37-47 [facility] Work Phone: Laboratory - Chemistry and C hemistry - challengeon 10-06-2021 ALP [Catalytic activity/Vol] 62 U/L 45-117 [facility] Work Phone: [phone] ALT [Catalytic activity/Vol] 26 U/L 13-56 [facility] Work Phone: [phone] CO2 [Moles/Vol] 27.0 mmol/L 21.0-32.0 [facility] Work Phone: [phone] Globulin (S) [Mass/Vol] 2.9 g/dL 2.2-4.2 [facility] Work Phone: [phone] Urea nitrogen/Creatinine [Mass ratio] 23.8 mg/mg 10-20 [facility] Work Phone: [phone] Laboratory - Hematology and Cell countson 10-06-2021 Erythrocyte distribution width (RBC) [Entitic vol] 45.3 fL 35.1-43.9 [facility] Work Phone: [phone] Erythrocyte distribution width (RBC) [Ratio] 12.8 % 11.6-14.6 [facility] Work Phone: [phone] Immature granulocytes/100 WBC (Bld) 0.900 % 0.0-0.9 [facility] Work Phone: [phone] Comment on above: IG% - Immature Granu locytes (promyelocytes, myelocytes and metamyelocytes) > 1% indicates that a LEFT SHIFT is Present. MCH (RBC) [Entitic mass] 32.6 pg 27.0-32.0 [facility] Work Phone: [phone] Nucleated RBC/100 WBC (Bld) [Ratio] 0 % 0-5 [facility] Work Phone: [phone] MCHC Auto (RBC) [Mass/Vol]on 10-06-2021 MCHC (RBC) [Mass/Vol] 34.1 g/dL 32-36 [facility] Work Phone: [phone] Panel Informationon 10-06 Estimated Creatinine Clearance Calc 54.70 ml/min [facility] Work Phone: [phone] Estimated GFR (MDRD) Amer 85 mL/min >60 [facility] Work Phone: Comment on above: GFR Calc Estimated GFR (MDRD) Non-Af Amer 70 mL/min >60 [facility] Work Phone: Comment on above: Non- GFR Calc Ethyl Alcohol Level < 3.0 mg/dL [facility] Work Phone: Comment on above: The serum:whole bloo d ethanol ratio is approximately 1.14and varies slightly with hematocrit. Medical Alcohol reference interval and critical value innon-tolerant individuals; 50 - 100 Impairment 100 Intoxication 100 - 250 Severe Poisoning 250 - 400 Deep/possible fatal coma Platelets bldon 10-06-2021 Platelets (Bld) [#/Vol] 317 10*3/uL 150-450 [facility] Work Phone: Review by pathologiston 09-20 Pathologist review Donnie (Unsp spec) [Interp] Nohelia july [facility] Work Phone: Pathologist review Donnie (Unsp spec) [Interp] Reviewed [facility] Work Phone: [phone] Comment on above: Previous reported re sult: Nohelia july Edited by: RGOOD on 10/09/21:1330Neutrophilic leukocytosis.Normocytic anemia.Clinical correlation necessary.Greg Guerin M.D. 10/09/21 AMENDED REPORT 10/09/21 1330 PATH REV previously reported as: August july Serum or plasma albumin rajni urement (mass/volume)on 10-06-2021 Albumin [Mass/Vol] 3.6 g/dL 3.2-5.0 [facility] Work Phone: [phone] Serum or plasma albumin/glob ulin mass ratioon 10-06-2021 Albumin/Globulin [Mass ratio] 1.2 {ratio} 0.9-2.4 [facility] Work Phone: [phone] Serum or plasma calcium rajni urement (mass/volume)on 10-06-2021 Calcium [Mass/Vol] 8.2 mg/dL 8.5-10.1 [facility] Work Phone: [phone] Serum or plasma creatinine m easurement (mass/volume)on 10-06-2021 Creatinine [Mass/Vol] 0.84 mg/dL 0.55-1.02 [facility] Work Phone: Comment on above: The validity of the calculated GFR & GFRAA in patients over 70 years has not been determined. Clinical correlation is essential. Serum or plasma urea nitroge n measurement (mass/volume)on 10-06-2021 Urea nitrogen [Mass/Vol] 20 mg/dL 7-18 [facility] Work Phone: Thin prep Papanicolaou smear with manual screeningon 10-06-2021 Thin prep Papanicolaou smear with manual screening 31 U/L 15-37 [facility] Work Phone: Thin prep Papanicolaou smear with manual screening 7 5-15 [facility] Work Phone: Laboratory - Chemistry and C hemistry - challengeon 07-28-2021 Free T4 [Mass/Vol] 1.04 ng/dL 0.76-1.46 [facility] Work Phone: No Panel Informationon 07-28 Thyroid Stimulating Hormone (TSH) 2.21 uIU/mL 0.358-3.74 [facility] Work Phone: Influenza virus A and B RNA and SARS-CoV-2 (COVID-19) N gene panel LEONA+probe (Resp)on 07-13-2021 FLUAV RNA LEONA+probe Ql (Unsp spec) Negative Negative for Influenza A by RT-PCR [facility] FLUBV RNA LEONA+probe Ql (Unsp spec) Negative Negative for Influenza B by RT-PCR [facility] SARS-CoV-2 (COVID-19) RNA LEONA+probe Ql (Resp) SARS-CoV-2 (Agent of COVID-19) Not Detected by RT-PCR or equivalent method. Not Detected [facility] Absolute lymphocyte counton 06-11-2021 Lymphocytes Auto (Unsp spec) [#/Vol] 1.63 10*3/uL 0.83-4.51 [facility] Work Phone: Basophil percentageon 2021 Basophil percentage 0 SEEN /hpf 0-5 [facility] Work Phone: Basophils/100 WBC (Bld) 0.5 % 0-1 [facility] Work Phone: Chloride [Moles/Vol] 99 mmol/L 98-107 [facility] Work Phone: Eosinophils/100 WBC (Bld) 1.4 % 0-5 [facility] Work Phone: Glucose [Mass/Vol] 110 mg/dL 74-106 [facility] Work Phone: Comment on above: Fasting Glucose resu lt from 100 to 125 mg/dL suggests IMPAIRED HOMEOSTASIS per A.D.A. criteria. Neutrophils (Bld) [#/Vol] 9.6 10*3/uL 2.0-7.7 [facility] Work Phone: Neutrophils/100 WBC (Bld) 78.8 % 47-70 [facility] Work Phone: Potassium [Moles/Vol] 3.8 mmol/L 3.5-5.1 [facility] Work Phone: Sodium [Moles/Vol] 135 mmol/L 136-145 [facility] Work Phone: WBC (Bld) [#/Vol] 12.1 10*3/uL 4.4-11.0 [facility] Work Phone: Bilirubin Test strip Ql (U)o n 06-11-2021 Bilirubin Ql (U) Negative Negative [facility] Work Phone: Blood erythrocytes count (nu mber/volume)on 06-11-2021 RBC (Bld) [#/Vol] 3.84 10*6/uL 4.2-5.4 [facility] Work Phone: Blood hemoglobin measurement (mass/volume)on 06-11-2021 Hemoglobin (Bld) [Mass/Vol] 12.6 g/dL 12.0-15.0 [facility] Work Phone: Blood lymphocytes/100 leukoc yteson 06-11-2021 Lymphocytes/100 WBC (Bld) 13.4 % 19-41 [facility] Work Phone: [phone] Blood monocytes/100 leukocyt eson 06-11-2021 Monocytes/100 WBC (Bld) 5.6 % 0-10 [facility] Work Phone: [phone] Blood platelet mean volumeon 06-11-2021 Platelet mean volume (Bld) [Entitic vol] 10.4 fL 6.2-12.0 [facility] Work Phone: [phone] Determination of erythrocyte mean corpuscular volume (MCV)on 06-11-2021 MCV (RBC) [Entitic vol] 94.5 fL 81-99 [facility] Work Phone: [phone] Hematocrit Auto (Bld) [Volum e fraction]on 06-11-2021 Hematocrit (Bld) [Volume fraction] 36.3 % 37-47 [facility] Work Phone: [phone] Ketones Test strip Ql (U)on 06-11-2021 Ketones Ql (U) Negative Negative [facility] Work Phone: [phone] Laboratory - Chemistry and C hemistry - challengeon 06-11-2021 CO2 [Moles/Vol] 28.0 mmol/L 21.0-32.0 [facility] Work Phone: Urea nitrogen/Creatinine [Mass ratio] 27.0 mg/mg - [facility] Work Phone: [phone] Laboratory - Hematology and Cell countson 06-11-2021 Erythrocyte distribution width (RBC) [Entitic vol] 45.8 fL 35.1-43.9 [facility] Work Phone: [phone] Erythrocyte distribution width (RBC) [Ratio] 13.2 % 11.6-14.6 [facility] Work Phone: [phone] Immature granulocytes/100 WBC (Bld) 0.300 % 0.0-0.9 [facility] Work Phone: [phone] Comment on above: IG% - Immature Granu locytes (promyelocytes, myelocytes and metamyelocytes) > 1% indicates that a LEFT SHIFT is Present. MCH (RBC) [Entitic mass] 32.8 pg 27.0-32.0 [facility] Work Phone: Nucleated RBC/100 WBC (Bld) [Ratio] 0 % 0-5 [facility] Work Phone: [phone] MCHC Auto (RBC) [Mass/Vol]on 06-11-2021 MCHC (RBC) [Mass/Vol] 34.7 g/dL 32-36 [facility] Work Phone: Mucus LM Ql (Urine sed)on Mucus Ql (Urine sed) 0 SEEN /hpf [facility] Work Phone: [phone] Nitrite Test strip Ql (U)on 06-11-2021 Nitrite Ql (U) Negative Negative [facility] Work Phone: No Panel Informationon 06-11 Estimated Creatinine Clearance Calc 42.62 ml/min [facility] Work Phone: [phone] Estimated GFR (MDRD) Amer 149 mL/min >60 [facility] Work Phone: Comment on above: GFR Calc Estimated GFR (MDRD) Non-Af Amer 123 mL/min >60 [facility] Work Phone: Comment on above: Non- GFR Calc Platelets bldon 06-11-2021 Platelets (Bld) [#/Vol] 301 10*3/uL 150-450 [facility] Work Phone: [phone] Protein Test strip Ql (U)on 06-11-2021 Protein Ql (U) Negative Negative [facility] Work Phone: [phone] Serum or plasma calcium rajni urement (mass/volume)on 06-11-2021 Calcium [Mass/Vol] 9.4 mg/dL 8.5-10.1 [facility] Work Phone: [phone] Serum or plasma creatinine m easurement (mass/volume)on 06-11-2021 Creatinine [Mass/Vol] 0.52 mg/dL 0.55-1.02 [facility] Work Phone: [phone] Comment on above: The validity of the calculated GFR & GFRAA in patients over 70 years has not been determined. Clinical correlation is essential. Serum or plasma urea nitroge n measurement (mass/volume)on 06-11-2021 Urea nitrogen [Mass/Vol] 14 mg/dL 7-18 [facility] Work Phone: Squamous epithelial cells de tection in urine sediment by light microscopyon 06-11-2021 Epithelial cells.squamous LM Ql (Urine sed) 0 SEEN /hpf 5-10 [facility] Work Phone: Thin prep Papanicolaou smear with manual screeningon 06-11-2021 Thin prep Papanicolaou smear with manual screening 8 5-15 [facility] Work Phone: Urine blood detectionon 05-24 RBC Ql (U) Negative Negative [facility] Work Phone: [phone] RBC Ql (U) 0 SEEN /hpf 0-5 [facility] Work Phone: Urine clarityon 06-11-2021 Clarity (U) Clear Clear [facility] Work Phone: Urine color determinationon 06-11-2021 Color (U) Yellow Yellow [facility] Work Phone: Urine glucose detectionon Glucose Ql (U) Normal mg/dl Normal [facility] Work Phone: [phone] Urine leukocyte esterase det ection by dipstickon 06-11-2021 Leukocyte esterase Test strip Ql (U) Negative Negative [facility] Work Phone: [phone] Urine pHon 06-11-2021 pH (U) 7.0 [pH] 5.0 - 8.0 [facility] Work Phone: [phone] Urine sediment bacteria coun t by microscopy (number/high power field)on 06-11-2021 Bacteria LM.HPF (Urine sed) [#/Area] 0 /[HPF] None Seen [facility] Work Phone: Urine specific gravity measu rementon 06-11-2021 Specific gravity (U) [Rel density] 1.010 1.002-1.030 [facility] Work Phone: Urobilinogen Auto test strip Ql (U)on 06-11-2021 Urobilinogen Ql (U) Normal mg/dl Normal [facility] Work Phone: Absolute lymphocyte counton 05-21-2021 Lymphocytes Auto (Unsp spec) [#/Vol] 1.29 10*3/uL 0.83-4.51 [facility] Work Phone: Basophil percentageon 2021 Basophils/100 WBC (Bld) 0.7 % 0-1 [facility] Work Phone: Chloride [Moles/Vol] 98 mmol/L 98-107 [facility] Work Phone: Eosinophils/100 WBC (Bld) 2.5 % 0-5 [facility] Work Phone: Glucose [Mass/Vol] 119 mg/dL 74-106 [facility] Work Phone: Comment on above: Fasting Glucose resu lt from 100 to 125 mg/dL suggests IMPAIRED HOMEOSTASIS per A.D.A. criteria. Neutrophils (Bld) [#/Vol] 6.4 10*3/uL 2.0-7.7 [facility] Work Phone: Neutrophils/100 WBC (Bld) 73.4 % 47-70 [facility] Work Phone: Potassium [Moles/Vol] 3.5 mmol/L 3.5-5.1 [facility] Work Phone: Sodium [Moles/Vol] 132 mmol/L 136-145 [facility] Work Phone: WBC (Bld) [#/Vol] 8.8 10*3/uL 4.4-11.0 [facility] Work Phone: Blood erythrocytes count (nu mber/volume)on 05-21-2021 RBC (Bld) [#/Vol] 3.66 10*6/uL 4.2-5.4 [facility] Work Phone: Blood hemoglobin measurement (mass/volume)on 05-21-2021 Hemoglobin (Bld) [Mass/Vol] 11.5 g/dL 12.0-15.0 [facility] Work Phone: Blood lymphocytes/100 leukoc yteson 05-21-2021 Lymphocytes/100 WBC (Bld) 14.7 % 19-41 [facility] Work Phone: [phone] Blood monocytes/100 leukocyt eson 05-21-2021 Monocytes/100 WBC (Bld) 8.5 % 0-10 [facility] Work Phone: [phone] Blood platelet mean volumeon 05-21-2021 Platelet mean volume (Bld) [Entitic vol] 10.7 fL 6.2-12.0 [facility] Work Phone: [phone] Determination of erythrocyte mean corpuscular volume (MCV)on 05-21-2021 MCV (RBC) [Entitic vol] 94.0 fL 81-99 [facility] Work Phone: [phone] Hematocrit Auto (Bld) [Volum e fraction]on 05-21-2021 Hematocrit (Bld) [Volume fraction] 34.4 % 37-47 [facility] Work Phone: [phone] Laboratory - Chemistry and C hemistry - challengeon 05-21-2021 CO2 [Moles/Vol] 27.0 mmol/L 21.0-32.0 [facility] Work Phone: [phone] Urea nitrogen/Creatinine [Mass ratio] 31.0 mg/mg 10-20 [facility] Work Phone: [phone] Laboratory - Hematology and Cell countson 05-21-2021 Erythrocyte distribution width (RBC) [Entitic vol] 44.3 fL 35.1-43.9 [facility] Work Phone: [phone] Erythrocyte distribution width (RBC) [Ratio] 12.7 % 11.6-14.6 [facility] Work Phone: [phone] Immature granulocytes/100 WBC (Bld) 0.200 % 0.0-0.9 [facility] Work Phone: [phone] Comment on above: IG% - Immature Granu locytes (promyelocytes, myelocytes and metamyelocytes) > 1% indicates that a LEFT SHIFT is Present. MCH (RBC) [Entitic mass] 31.4 pg 27.0-32.0 [facility] Work Phone: [phone] Nucleated RBC/100 WBC (Bld) [Ratio] 0 % 0-5 [facility] Work Phone: [phone] MCHC Auto (RBC) [Mass/Vol]on 05-21-2021 MCHC (RBC) [Mass/Vol] 33.4 g/dL 32-36 [facility] Work Phone: [phone] Panel Informationon 05-21 Estimated Creatinine Clearance Calc 46.20 ml/min [facility] Work Phone: [phone] Estimated GFR (MDRD) Amer 174 mL/min >60 [facility] Work Phone: [phone] Comment on above: GFR Calc Estimated GFR (MDRD) Non-Af Amer 144 mL/min >60 [facility] Work Phone: [phone] Comment on above: Non- GFR Calc Ethyl Alcohol Level < 3.0 mg/dL [facility] Work Phone: [phone] Comment on above: The serum:whole bloo d ethanol ratio is approximately 1.14and varies slightly with hematocrit. Medical Alcohol reference interval and critical value innon-tolerant individuals; 50 - 100 Impairment 100 Intoxication 100 - 250 Severe Poisoning 250 - 400 Deep/possible fatal coma Platelets bldon 05-21-2021 Platelets (Bld) [#/Vol] 267 10*3/uL 150-450 [facility] Work Phone: [phone] Serum or plasma calcium rajni urement (mass/volume)on 05-21-2021 Calcium [Mass/Vol] 8.2 mg/dL 8.5-10.1 [facility] Work Phone: [phone] Serum or plasma creatinine m easurement (mass/volume)on 05-21-2021 Creatinine [Mass/Vol] 0.45 mg/dL 0.55-1.02 [facility] Work Phone: [phone] Comment on above: The validity of the calculated GFR & GFRAA in patients over 70 years has not been determined. Clinical correlation is essential. Serum or plasma urea nitroge n measurement (mass/volume)on 05-21-2021 Urea nitrogen [Mass/Vol] 14 mg/dL 7-18 [facility] Work Phone: Thin prep Papanicolaou smear with manual screeningon 05-21-2021 Thin prep Papanicolaou smear with manual screening 7 5-15 [facility] Work Phone: XR Humerus - left AP and Lat eralon 03-17-2021 IMPRESSION: Mildly comminuted fracture of the left humeral diaphysis. Overlying soft tissue swelling. Bender Machine: PSCB Transcribe Date/Time: Mar 17 2021 2:43P Dictated by : ARISTEO HODGE MD This examination was interpreted and the report reviewed and electronically signed by: ARISTEO HODGE MD on Mar 17 2021 2:45PM [facility] DIVISION OF RADIOLOGY * * *Final [...] the single view. DIVISION OF RADIOLOGY Provider, [facility] - 03/17/2021 * * *Final [...] left humeral diaphysis. Overlying soft tissue swelling. Bender Machine: PSCB Transcribe Date/Time: Mar 17 2021 2:43P Dictated by : ARISTEO HODGE MD This examination was interpreted and the report reviewed and electronically signed by: ARISTEO HODGE MD on Mar 17 2021 2:45PM EST [facility] Radiology Study observation (narrative) Lakisha mckenna [facility] XR Humerus - left AP and Lat eralOrdered By: [facility] Provider on 03-17-2021 [facility] Add On Lab Teston 04-17-2020 Sodium [Moles/Vol] Accepted [place], [place] Comment on above: Specimen available & acceptable for analysis. Test Performed by [facility], [address] [place] [address] Sodium [Moles/Vol] Accepted [place], [place] Comment on above: Specimen available & acceptable for analysis. Test Performed by [id number] [place] [address] Add on test from HISon 04-17 Add on test from HIS Accepted Normal [facility] Comment on above: Result Comment: Spec imen available & acceptable for analysis. Performed By: #### A DDON ####[id number] [place], [place] Add on test from HIS Accepted Normal [facility] Comment on above: Result Comment: Spec imen available & acceptable for analysis. Performed By: #### A DDON #### [address] Albuminon 04-17-2020 Albumin [Mass/Vol] 3.2 g/dL Low 3.5 - 5 g/dL [place] Interpretation and review of laboratory results Abnormal [place] Test Performed by [address] [facility] [place] [address] [facility] [place], [place] Albumin, Serumon 04-17-2020 Albumin [Mass/Vol] 3.2 g/dL Low 3.5-5.0 [facility] Comment on above: Performed By: #### B MP3M, TSH5, MG3, HEMDF, ALB3, B12, PHOS3 ####[facility] [facility] [facility] [address], [place] Basic Metabolic Panelon 03-23 Anion gap [Moles/Vol] 6 Normal [facility] Comment on above: Performed By: #### B MP3M, TSH5, MG3, HEMDF, ALB3, B12, PHOS3 ####[address] [place], [place] Calcium [Mass/Vol] 6.8 mg/dL Low 8.4-10.4 [facility] Comment on above: Performed By: #### B MP3M, TSH5, MG3, HEMDF, ALB3, B12, PHOS3 ####[address] [place], [place] CO2 [Moles/Vol] 29 mmol/L Normal 22-30 [facility] Comment on above: Performed By: #### B MP3M, TSH5, MG3, HEMDF, ALB3, B12, PHOS3 ####[address] [place], [place] Glucose [Mass/Vol] 103 mg/dL High 70-100 [facility] Comment on above: Performed By: #### B MP3M, TSH5, MG3, HEMDF, ALB3, B12, PHOS3 ####[facility] [place], [place] Urea nitrogen [Mass/Vol] 13 mg/dL Normal 7-20 [facility] Comment on above: Performed By: #### B MP3M, TSH5, MG3, HEMDF, ALB3, B12, PHOS3 ####[facility] [place], [place] Creatinine [Mass/Vol] 0.56 mg/dL Normal 0.52-1.25 [facility] Comment on above: Performed By: #### B MP3M, TSH5, MG3, HEMDF, ALB3, B12, PHOS3 ####[facility] [id number] [place] [address] GFR/1.73 sq M predicted among blacks MDRD (S/P/Bld) [Vol rate/Area] mL/min/{1.73_m2} Normal >60 [facility] Comment on above: Performed By: #### B MP3M, TSH5, MG3, HEMDF, ALB3, B12, PHOS3 ####[facility] [id number] [place] [address] GFR/1.73 sq M predicted among non-blacks MDRD (S/P/Bld) [Vol rate/Area] mL/min/{1.73_m2} Normal >60 [facility] Comment on above: Result Comment: KDIG O [...] MP3M, TSH5, MG3, HEMDF, ALB3, B12, PHOS3 ####[facility] [id number] [place] [address] Chloride [Moles/Vol] 100 mmol/L Normal 98-107 [facility] Comment on above: Performed By: #### B MP3M, TSH5, MG3, HEMDF, ALB3, B12, PHOS3 ####[facility] [place], [place] Potassium [Moles/Vol] 3.3 mmol/L Low 3.5-5.1 [facility] Comment on above: Performed By: #### B MP3M, TSH5, MG3, HEMDF, ALB3, B12, PHOS3 ####[facility] [place], [place] Sodium [Moles/Vol] 135 mmol/L Normal 135-145 [facility] Comment on above: Performed By: #### B MP3M, TSH5, MG3, HEMDF, ALB3, B12, PHOS3 ####[facility] [place], [place] Basic Metabolic Panel w/ Ref jason to [facility] 04-17-2020 Anion gap [Moles/Vol] 6 mmol/L [place], [place] Calcium [Mass/Vol] 6.8 mg/dL Low 8.4 - 10. 4 mg/dL [place] Chloride [Moles/Vol] 100 mmol/L 98 - 10 7 mmol/L [place] CO2 [Moles/Vol] 29 mmol/L 22 - 30 mmol/L [place] Creatinine [Mass/Vol] 0.56 mg/dL 0.52 - 1.25 mg/dL [place] EGFR IF NonAfrican Micronesian >90.0 >60 mL/min [place] Comment on above: KDIGO guidelines pro [...] MDRD (S/P/Bld) [Vol rate/Area] mL/min/{1.73_m2} >60 mL/min [place] Glucose [Mass/Vol] 103 mg/dL High 70 - 100 mg/dL [place] Interpretation and review of laboratory results Abnormal [place] Potassium [Moles/Vol] 3.3 mmol/L Low 3.5 - 5.1 mmol/L [place] Sodium [Moles/Vol] 135 mmol/L 135 - 145 mmol/L [place] Urea nitrogen [Mass/Vol] 13 mg/dL 7 - 20 mg/dL [place] CBC auto differentialon - Absolute Baso # 0.1 10*3/uL 0 - 0.2 10*3/uL [place] Absolute Neut # 8.1 10*3/uL High 1.8 - 7 10*3/uL [place] Basophils/100 WBC (Bld) 0.6 % 0 - 2 % [place] Eosinophils (Bld) [#/Vol] 0.1 10*3/uL 0 - 0.5 10*3/uL [place] Eosinophils/100 WBC (Bld) 1.1 % 1 - 6 % [place] Erythrocyte distribution width (RBC) [Ratio] 14.9 % High 11.5 - 14.5 % [place] Granulocytes/100 WBC (Bld) 71.9 % 40 - 80 % [place] Hematocrit (Bld) [Volume fraction] 31.7 % Low 35 - 47 % [place] Hemoglobin (Bld) [Mass/Vol] 10.6 g/dL Low 11.7 - 16 g/dL [place] Interpretation and review of laboratory results Abnormal [place] Lymphocytes (Bld) [#/Vol] 1.9 10*3/uL 1 - 4.3 10*3/uL [place] Lymphocytes/100 WBC (Bld) 16.9 % Low 20 - 40 % [place] MCH (RBC) [Entitic mass] 33.2 pg 26 - 34 pg [place] MCHC (RBC) [Mass/Vol] 33.3 % 32 - 36 % [place], [place] MCV (RBC) [Entitic vol] 99.7 fL High 79 - 98 fL [place], [place] Monocytes (Bld) [#/Vol] 1.1 10*3/uL High 0 - 0.8 10*3/uL [place] Monocytes/100 WBC (Bld) 9.5 % 2 - 10 % [place], [place] Platelet mean volume (Bld) [Entitic vol] 8.7 fL 7.4 - 10.4 fL [place] Platelets (Bld) [#/Vol] 232 10*3/uL 140 - 440 10*3/uL [place] RBC (Bld) [#/Vol] 3.18 10*6/uL Low 3.8 - 5.2 10*6/uL [place] WBC (Bld) [#/Vol] 11.2 10*3/uL High 3.6 - 10.7 10*3/uL [place] Test Performed by [id number] [place] [address] CT Head or Brain w/o Contras ton 04-17-2020 CT Head or Brain w/o Contrast Patient Name: AIDEN FIELDS Computed Tomography ACCESSION EXAM DATE/TIME PROCEDURE ORDERING PROVIDER [id number] 04/17/2020 06:[address] Head or Brain w/o MD AV, ANIBAL Contrast CPT code 91568 Reason For Exam (CT Head or Brain [...] Transcribed Date and Time: 04/17/2020 9:04 Normal [facility] CT head without contraston 1 06-18-2019 Greg, [facility] Incoming Radiology Results From [facility] - 04/17/2020 9:11 AM EST [facility]: [id number] ACCESSION EXAM DATE/TIME PROCEDURE ORDERING PROVIDER [id number] 04/17/2020 06:[address] Head or Brain w/o MD LEY ANDREW Contrast CPT code 41853 Reason For Exam (CT Head or Brain [...] JOHN Transcribed Date and Time: 04/17/2020 9:04 [place] Patient Name: AIDEN FIELDS Computed Tomography ACCESSION EXAM DATE/TIME PROCEDURE ORDERING PROVIDER [id number] 04/17/2020 06:[address] Head or Brain w/o MD LEY ANDREW Contrast CPT code 30463 Reason For Exam (CT Head or Brain [...] JOHN Transcribed Date and Time: 04/17/2020 9:04 [place] Hemogram w/ Autodiffon 04-17 Abs Baso Cnt 0.1 10*3/uL Normal 0[facility]0-0.2 [facility] Comment on above: Performed By: #### B MP3M, TSH5, MG3, HEMDF, ALB3, B12, PHOS3 ####[address] [place], [place] Abs Neutrophile Cnt 8.1 10*3/uL High 1.8-7.0 [facility] Comment on above: Performed By: #### B MP3M, TSH5, MG3, HEMDF, ALB3, B12, PHOS3 ####[address] [place], [place] Basophils/100 WBC (Bld) 0.6 % Normal 0.0-2.0 [facility] Comment on above: Performed By: #### B MP3M, TSH5, MG3, HEMDF, ALB3, B12, PHOS3 ####[address] Eosinophils (Bld) [#/Vol] 0.1 10*3/uL Normal 0.0-0.5 [facility] Comment on above: Performed By: #### B MP3M, TSH5, MG3, HEMDF, ALB3, B12, PHOS3 ####[address] Eosinophils/100 WBC (Bld) 1.1 % Normal 1.0-6.0 [facility] Comment on above: Performed By: #### B MP3M, TSH5, MG3, HEMDF, ALB3, B12, PHOS3 ####[address] [place], [place] Erythrocyte distribution width (RBC) [Ratio] 14.9 % High 11.5-14.5 [facility] Comment on above: Performed By: #### B MP3M, TSH5, MG3, HEMDF, ALB3, B12, PHOS3 ####[address] Granulocytes/100 WBC (Bld) 71.9 % Normal 40.0-80.0 [facility] Comment on above: Performed By: #### B MP3M, TSH5, MG3, HEMDF, ALB3, B12, PHOS3 ####[address] Hematocrit (Bld) [Volume fraction] 31.7 % Low 35.0-47.0 [facility] Comment on above: Performed By: #### B MP3M, TSH5, MG3, HEMDF, ALB3, B12, PHOS3 ####[address] [place], [place] Hemoglobin (Bld) [Mass/Vol] 10.6 g/dL Low 11.7-16.0 [facility] Comment on above: Performed By: #### B MP3M, TSH5, MG3, HEMDF, ALB3, B12, PHOS3 ####[address] [place], [place] Lymphocytes (Bld) [#/Vol] 1.9 10*3/uL Normal 1.0-4.3 [facility] Comment on above: Performed By: #### B MP3M, TSH5, MG3, HEMDF, ALB3, B12, PHOS3 ####[address] Lymphocytes/100 WBC (Bld) 16.9 % Low 20.0-40.0 [facility] Comment on above: Performed By: #### B MP3M, TSH5, MG3, HEMDF, ALB3, B12, PHOS3 ####[address] [place], [place] MCH (RBC) [Entitic mass] 33.2 pg Normal 26.0-34.0 [facility] Comment on above: Performed By: #### B MP3M, TSH5, MG3, HEMDF, ALB3, B12, PHOS3 ####[address] [place], [place] MCHC (RBC) [Mass/Vol] 33.3 % Normal 32.0-36.0 [facility] Comment on above: Performed By: #### B MP3M, TSH5, MG3, HEMDF, ALB3, B12, PHOS3 ####[address] MCV (RBC) [Entitic vol] 99.7 fL High 79.0-98.0 [facility] Comment on above: Performed By: #### B MP3M, TSH5, MG3, HEMDF, ALB3, B12, PHOS3 ####[address] [place], [place] Monocytes (Bld) [#/Vol] 1.1 10*3/uL High 0.0-0.8 [facility] Comment on above: Performed By: #### B MP3M, TSH5, MG3, HEMDF, ALB3, B12, PHOS3 ####[id number] [place], [place] Monocytes/100 WBC (Bld) 9.5 % Normal 2.0-10.0 [facility] Comment on above: Performed By: #### B MP3M, TSH5, MG3, HEMDF, ALB3, B12, PHOS3 ####[id number] [place], [place] Platelet mean volume (Bld) [Entitic vol] 8.7 fL Normal 7.4-10.4 [facility] Comment on above: Performed By: #### B MP3M, TSH5, MG3, HEMDF, ALB3, B12, PHOS3 ####[id number] [place], [place] Platelets (Bld) [#/Vol] 232 10*3/uL Normal 140-440 [facility] Comment on above: Performed By: #### B MP3M, TSH5, MG3, HEMDF, ALB3, B12, PHOS3 ####[id number] [place], [place] RBC (Bld) [#/Vol] 3.18 10*6/uL Low 3.80-5.20 [facility] Comment on above: Performed By: #### B MP3M, TSH5, MG3, HEMDF, ALB3, B12, PHOS3 ####[id number] [place], [place] WBC (Bld) [#/Vol] 11.2 10*3/uL High 3.6-10.7 [facility] Comment on above: Performed By: #### B MP3M, TSH5, MG3, HEMDF, ALB3, B12, PHOS3 ####[facility] [id number] [place], [place] Lactic Acidon 04-17-2020 Lactate [Moles/Vol] 1.8 mmol/L Normal 0.7-2.0 [facility] Comment on above: Performed By: #### L ACT3 #### [facility] [address] [place], [place] Lactic Acid, Plasmaon 2019 Lactate [Moles/Vol] 1.8 mmol/L 0.7 - 2 mmol/L [place], [place] Test Performed by [facility], [address] [place] [address] [place] Magnesiumon 04-17-2020 Magnesium [Mass/Vol] 1.4 mg/dL Low 1.6-2.3 [facility] Comment on above: Performed By: #### B MP3M, TSH5, MG3, HEMDF, ALB3, B12, PHOS3 ####[id number] [place], [place] Interpretation and review of laboratory results Abnormal [place] Magnesium [Mass/Vol] 1.4 mg/dL Low 1.6 - 2 .3 mg/dL [place] Test Performed by [facility], [facility] [place] [address] [place] Otheron 04-17-2020 Test Performed by [facility], [place] [address] [place] Phosphoruson 04-17-2020 Phosphate [Mass/Vol] 3.4 mg/dL Normal 2.5-4.5 [facility] Comment on above: Performed By: #### B MP3M, TSH5, MG3, HEMDF, ALB3, B12, PHOS3 ####[facility] [place], [place] Phosphate [Mass/Vol] 3.4 mg/dL 2.5 - 4 .5 mg/dL [place] TSH without Reflexon 020 Interpretation and review of laboratory results Abnormal [place] TSH Qn 18.063 u[IU]/mL High 0.465 - 4.68 u[IU]/mL [place] Test Performed by [facility], [address] [place] [address] [place] Thyroid Stim. Hormoneon 03-23 Thyroid Stim. Hormone 18.063 u[IU]/mL High 0.465-4.6 80 [facility] Comment on above: Performed By: #### B MP3M, TSH5, MG3, HEMDF, ALB3, B12, PHOS3 ####[facility] [id number] [place] [address] Vitamin B12on 04-17-2020 Cobalamin (Vitamin B12) [Mass/Vol] 345 pg/mL Normal 239-931 [facility] Comment on above: Performed By: #### B MP3M, TSH5, MG3, HEMDF, ALB3, B12, PHOS3 ####[id number] [place], [place] Cobalamin (Vitamin B12) [Mass/Vol] 345 pg/mL 239 - 931 pg/mL [place] Test Performed by [facility], [address] [place] [address] [place] Basic Metabolic Panelon 03-23 Calcium [Mass/Vol] 7.9 mg/dL Low 8.4-10.4 [facility] Comment on above: Performed By: #### E TOH4, BMP3M, LACT3, HEMDF #### [facility] [address] [place], [place] Glucose [Mass/Vol] 116 mg/dL High 70-100 [facility] Comment on above: Performed By: #### E TOH4, BMP3M, LACT3, HEMDF #### [facility] [address] [place], [place] Anion gap [Moles/Vol] 7 Normal [facility] Comment on above: Performed By: #### E TOH4, BMP3M, LACT3, HEMDF #### [address] CO2 [Moles/Vol] 29 mmol/L Normal 22-30 [facility] Comment on above: Performed By: #### E TOH4, BMP3M, LACT3, HEMDF #### [address] Creatinine [Mass/Vol] 0.48 mg/dL Low 0.52-1.25 [facility] Comment on above: Performed By: #### E TOH4, BMP3M, LACT3, HEMDF #### [address] GFR/1.73 sq M predicted among blacks MDRD (S/P/Bld) [Vol rate/Area] mL/min/{1.73_m2} Normal >60 [facility] Comment on above: Performed By: #### E TOH4, BMP3M, LACT3, HEMDF #### [address] GFR/1.73 sq M predicted among non-blacks MDRD (S/P/Bld) [Vol rate/Area] mL/min/{1.73_m2} Normal >60 [facility] Comment on above: Result Comment: KDIG O [...] #### E TOH4, BMP3M, LACT3, HEMDF #### [place] [address] [place], [place] Urea nitrogen [Mass/Vol] 13 mg/dL Normal 7-20 [facility] Comment on above: Performed By: #### E TOH4, BMP3M, LACT3, HEMDF #### [place] [address] [place], [place] Chloride [Moles/Vol] 99 mmol/L Normal 98-107 [facility] Comment on above: Performed By: #### E TOH4, BMP3M, LACT3, HEMDF #### [place] [address] [place], [place] Potassium [Moles/Vol] 3.6 mmol/L Normal 3.5-5.1 [facility] Comment on above: Performed By: #### E TOH4, BMP3M, LACT3, HEMDF #### [place] [address] [place], [place] Sodium [Moles/Vol] 136 mmol/L Normal 135-145 [facility] Comment on above: Performed By: #### E TOH4, BMP3M, LACT3, HEMDF #### [place] [address] [place], [place] Basic Metabolic Panel w/ Ref jason to MGon 04-16-2020 Anion gap [Moles/Vol] 7 mmol/L [place], [place] Calcium [Mass/Vol] 7.9 mg/dL Low 8.4 - 10. 4 mg/dL [place] Chloride [Moles/Vol] 99 mmol/L 98 - 10 7 mmol/L [place] CO2 [Moles/Vol] 29 mmol/L 22 - 30 mmol/L [place] Creatinine [Mass/Vol] 0.48 mg/dL Low 0.52 - 1.25 mg/dL [place] EGFR IF NonAfrican Micronesian >90.0 >60 mL/min [place] Comment on above: KDIGO guidelines pro [...] MDRD (S/P/Bld) [Vol rate/Area] mL/min/{1.73_m2} >60 mL/min [place] Glucose [Mass/Vol] 116 mg/dL High 70 - 100 mg/dL [place] Interpretation and review of laboratory results Abnormal [place] Potassium [Moles/Vol] 3.6 mmol/L 3.5 - 5.1 mmol/L [place] Sodium [Moles/Vol] 136 mmol/L 135 - 145 mmol/L [place] Urea nitrogen [Mass/Vol] 13 mg/dL 7 - 20 mg/dL [place] CBC auto differentialon 12-2 Absolute Baso # 0.1 10*3/uL 0 - 0.2 10*3/uL [place] Absolute Neut # 10.3 10*3/uL High 1.8 - 7 10*3/uL [place] Basophils/100 WBC (Bld) 0.4 % 0 - 2 % [place] Eosinophils (Bld) [#/Vol] 0.0 10*3/uL 0 - 0.5 10*3/uL [place] Eosinophils/100 WBC (Bld) 0.4 % Low 1 - 6 % [place] Erythrocyte distribution width (RBC) [Ratio] 14.6 % High 11.5 - 14.5 % [place] Granulocytes/100 WBC (Bld) 82.2 % High 40 - 80 % [place] Hematocrit (Bld) [Volume fraction] 36.4 % 35 - 47 % [place] Hemoglobin (Bld) [Mass/Vol] 12.1 g/dL 11.7 - 16 g/dL [place] Interpretation and review of laboratory results Abnormal [place] Lymphocytes (Bld) [#/Vol] 1.1 10*3/uL 1 - 4.3 10*3/uL [place] Lymphocytes/100 WBC (Bld) 9.1 % Low 20 - 40 % [place] MCH (RBC) [Entitic mass] 33.0 pg 26 - 34 pg [place] MCHC (RBC) [Mass/Vol] 33.2 % 32 - 36 % [place] MCV (RBC) [Entitic vol] 99.2 fL High 79 - 98 fL [place], [place] Monocytes (Bld) [#/Vol] 1.0 10*3/uL High 0 - 0.8 10*3/uL [place] Monocytes/100 WBC (Bld) 7.9 % 2 - 10 % [place], [place] Platelet mean volume (Bld) [Entitic vol] 8.1 fL 7.4 - 10.4 fL [place] Platelets (Bld) [#/Vol] 283 10*3/uL 140 - 440 10*3/uL [place] RBC (Bld) [#/Vol] 3.67 10*6/uL Low 3.8 - 5.2 10*6/uL [place] WBC (Bld) [#/Vol] 12.5 10*3/uL High 3.6 - 10.7 10*3/uL [place] Test Performed by [facility], [address] [place] [address] [place] Drug screen multi urineon Amphetamines, urine Negative [place] Barbiturates, Ur Negative [place] Benzodiazepine Ur Qual Negative [place], [place] Cocaine Metabolites, Ur Negative M [facility], [place] Methadone, Urine Negative [facility], [place] Opiates, Urine Positive [facility] Oxy[place]one Screen, Ur Negative [facility], [place] PCP, Urine Negative [facility] Comment on above: The expected value f [...] confirmation under separate order. Test Performed by [address] Drugs of Abuseon 04-16-2020 Opiates, Ur Positive Normal [facility] Comment on above: Performed By: #### D RGA4 #### [address] [id number] Phencyclidine (PCP), Ur Negative Normal [facility] Comment on above: Result Comment: The expected [...] order. Performed By: #### D RGA4 #### [facility] [address] [place], [place] Methadone, Ur Negative Normal [facility] Comment on above: Performed By: #### D RGA4 #### [facility] [address] [place], [place] Benzodiazepines, Ur Negative Normal [facility] Comment on above: Performed By: #### D RGA4 #### [facility] [address] [place], [place] Cocaine, Ur Negative Normal [facility] Comment on above: Performed By: #### D RGA4 #### [facility] [address] [place], [place] Barbiturates, Ur Negative Normal [facility] Comment on above: Performed By: #### D RGA4 #### [facility] [address] [place], [place] Amphetamines, Ur Negative Normal [facility] Comment on above: Performed By: #### D RGA4 #### [facility] [address] [place], [place] Oxycodone/Oxymorphine,U r Negative Normal [facility] Comment on above: Performed By: #### D RGA4 #### [facility] [address] [place], [place] Ethanolon 04-16-2020 Ethanol Lvl <0.010 0 - 0.01 g/dL [place] Comment on above: NOTE: This result is for medical treatment only. Analysis performed using non-forensic procedures. Ethanol Serum/Plasmaon 04-16 Ethanol-Serum/Plasma < 0.010 Normal 0.000-0.010 [facility] Comment on above: Result Comment: NOTE : This result is for medical treatment only. Analysis performed using non-forensic procedures. Performed By: #### E TOH4, BMP3M, LACT3, HEMDF #### [facility] [address] [place], [place] Hemogram w/ Autodiffon 04-16 Abs Baso Cnt 0.1 10*3/uL Normal 0.0-0.2 [facility] Comment on above: Performed By: #### E TOH4, BMP3M, LACT3, HEMDF #### [address] [place], [place] Abs Neutrophile Cnt 10.3 10*3/uL High 1.8-7.0 [facility] Comment on above: Performed By: #### E TOH4, BMP3M, LACT3, HEMDF #### [address] [place], [place] Basophils/100 WBC (Bld) 0.4 % Normal 0.0-2.0 [facility] Comment on above: Performed By: #### E TOH4, BMP3M, LACT3, HEMDF #### [address] Eosinophils (Bld) [#/Vol] 0.0 10*3/uL Normal 0.0-0.5 [facility] Comment on above: Performed By: #### E TOH4, BMP3M, LACT3, HEMDF #### [address] Eosinophils/100 WBC (Bld) 0.4 % Low 1.0-6.0 [facility] Comment on above: Performed By: #### E TOH4, BMP3M, LACT3, HEMDF #### [address] Erythrocyte distribution width (RBC) [Ratio] 14.6 % High 11.5-14.5 [facility] Comment on above: Performed By: #### E TOH4, BMP3M, LACT3, HEMDF #### [address] Granulocytes/100 WBC (Bld) 82.2 % High 40.0-80.0 [facility] Comment on above: Performed By: #### E TOH4, BMP3M, LACT3, HEMDF #### [address] Hematocrit (Bld) [Volume fraction] 36.4 % Normal 35.0-47.0 [facility] Comment on above: Performed By: #### E TOH4, BMP3M, LACT3, HEMDF #### [address] [place], [place] Hemoglobin (Bld) [Mass/Vol] 12.1 g/dL Normal 11.7-16.0 [facility] Comment on above: Performed By: #### E TOH4, BMP3M, LACT3, HEMDF #### [address] Lymphocytes (Bld) [#/Vol] 1.1 10*3/uL Normal 1.0-4.3 [facility] Comment on above: Performed By: #### E TOH4, BMP3M, LACT3, HEMDF #### [address] Lymphocytes/100 WBC (Bld) 9.1 % Low 20.0-40.0 [facility] Comment on above: Performed By: #### E TOH4, BMP3M, LACT3, HEMDF #### [address] MCH (RBC) [Entitic mass] 33.0 pg Normal 26.0-34.0 [facility] Comment on above: Performed By: #### E TOH4, BMP3M, LACT3, HEMDF #### [address] MCHC (RBC) [Mass/Vol] 33.2 % Normal 32.0-36.0 [facility] Comment on above: Performed By: #### E TOH4, BMP3M, LACT3, HEMDF #### [address] MCV (RBC) [Entitic vol] 99.2 fL High 79.0-98.0 [facility] Comment on above: Performed By: #### E TOH4, BMP3M, LACT3, HEMDF #### [address] Monocytes (Bld) [#/Vol] 1.0 10*3/uL High 0.0-0.8 [facility] Comment on above: Performed By: #### E TOH4, BMP3M, LACT3, HEMDF #### [address] [place], [place] Monocytes/100 WBC (Bld) 7.9 % Normal 2.0-10.0 [facility] Comment on above: Performed By: #### E TOH4, BMP3M, LACT3, HEMDF #### [address] [place], [place] Platelet mean volume (Bld) [Entitic vol] 8.1 fL Normal 7.4-10.4 [facility] Comment on above: Performed By: #### E TOH4, BMP3M, LACT3, HEMDF #### [address] [place], [place] Platelets (Bld) [#/Vol] 283 10*3/uL Normal 140-440 [facility] Comment on above: Performed By: #### E TOH4, BMP3M, LACT3, HEMDF #### [address] [place], [place] RBC (Bld) [#/Vol] 3.67 10*6/uL Low 3.80-5.20 [facility] Comment on above: Performed By: #### E TOH4, BMP3M, LACT3, HEMDF #### [address] [place] WBC (Bld) [#/Vol] 12.5 10*3/uL High 3.6-10.7 [facility] Comment on above: Performed By: #### E TOH4, BMP3M, LACT3, HEMDF #### [address] [place] Lactic Acidon 04-16-2020 Lactate [Moles/Vol] 2.7 mmol/L Critically high 0.7-2.0 [facility] Comment on above: Performed By: #### L ACT3 #### [address] [place] Lactate [Moles/Vol] 3.0 mmol/L Critically high 0.7-2.0 [facility] Comment on above: Performed By: #### E TOH4, BMP3M, LACT3, HEMDF #### [address] [place] [address] Lactic Acid, Plasmaon 2019 Interpretation and review of laboratory results Abnormal [place] Lactate [Moles/Vol] 2.7 mmol/L Critically high 0.7 - 2 mmol/L [facility], [place] Test Performed by [facility], [facility] [place] [address] [facility] Interpretation and review of laboratory results Abnormal [place] Lactate [Moles/Vol] 3 mmol/L Critically high 0.7 - 2 mmol/L [place] Test Performed by [facility], [facility] [place] [address] [facility], [place] Otheron 04-16-2020 Test Performed by [facility], [facility] [place] [address] [place] .GFRon 09-01-2019 GFR Non- >60 Normal [facility] ([place]) Comment on above: Result Comment: GFR Population [...] #### C BC, BMP, GFR, DIFF, MORPH ####[place] [address] GFR >60 Normal [facility] ([place]) Comment on above: Result Comment: GFR Population [...] #### C BC, BMP, GFR, DIFF, MORPH ####[address] [address] .Manual Diffon 09-01-2019 Bands 1.0 % Normal 0.0-5.0 [facility] ([place]) Comment on above: Performed By: #### C BC, BMP, GFR, DIFF, MORPH ####[place] [address] Basophil %, Manual 1.0 % Normal 0.0-2.5 [facility] ([place]) Comment on above: Performed By: #### C BC, BMP, GFR, DIFF, MORPH ####[place] [address] Basophil, Abs Manual 0.15 10 3/mcL Normal 0.00-0.27 [facility] ([place]) Comment on above: Performed By: #### C BC, BMP, GFR, DIFF, MORPH ####[place] [address] Cells Counted 100 Normal [facility] ([place]) Comment on above: Performed By: #### C BC, BMP, GFR, DIFF, MORPH ####[place] [address] Eosinophil %, Manual 2.0 % Normal 0.0-6.0 [facility] ([place]) Comment on above: Performed By: #### C BC, BMP, GFR, DIFF, MORPH ####[place] [id number] Eosinophil, Abs Manual 0.30 10 3/mcL Normal 0.00-0.65 [facility] ([place]) Comment on above: Performed By: #### C BC, BMP, GFR, DIFF, MORPH ####[address] [address] Lymphocyte %, Manual 7.0 % Low 20.0-40.0 [facility] ([place]) Comment on above: Performed By: #### C BC, BMP, GFR, DIFF, MORPH ####[address] [address] Lymphocyte, Abs Manual 1.04 10 3/mcL Normal 0.90-4.32 [facility] ([place]) Comment on above: Performed By: #### C BC, BMP, GFR, DIFF, MORPH ####[place] [address] Monocyte %, Manual 2.0 % Normal 2.0-13.0 [facility] ([place] Comment on above: Performed By: #### C BC, BMP, GFR, DIFF, MORPH ####[place] [address] Monocyte, Abs Manual 0.30 10 3/mcL Normal 0.09-1.40 [facility] ([place]) Comment on above: Performed By: #### C BC, BMP, GFR, DIFF, MORPH ####[place] [address] Neutrophil %, Manual 87.0 % High 50.0-75.0 [facility] ([place]) Comment on above: Performed By: #### C BC, BMP, GFR, DIFF, MORPH ####[address] [address] Neutrophil, Abs Manual 13.11 10 3/mcL High 2.25-8.10 [facility] ([place]) Comment on above: Performed By: #### C BC, BMP, GFR, DIFF, MORPH ####[place] [address] .Morphon 09-01-2019 Platelets (Bld) [#/Vol] Slt Increased Normal [facility] ([place]) Comment on above: Performed By: #### C BC, BMP, GFR, DIFF, MORPH ####[place] [address] RBC morphology finding Nom (Bld) Normal Normal [facility] ([place]) Comment on above: Performed By: #### C BC, BMP, GFR, DIFF, MORPH ####[address] [address] BMPon 09-01-2019 Calcium [Mass/Vol] 8.6 mg/dL Normal 8.4-10.1 [facility] ([place] Comment on above: Performed By: #### C BC, BMP, GFR, DIFF, MORPH ####[address] [address] CO2 [Moles/Vol] 24 mmol/L Normal 22-32 [facility] ([place]) Comment on above: Performed By: #### C BC, BMP, GFR, DIFF, MORPH ####[address] [address] Creatinine [Mass/Vol] 0.46 mg/dL Low 0.50-1.20 [facility] ([place]) Comment on above: Performed By: #### C BC, BMP, GFR, DIFF, MORPH ####[place] [address] Electrolyte Balance 10.0 mEq/L Normal 4.0-15.0 [facility] ([place]) Comment on above: Performed By: #### C BC, BMP, GFR, DIFF, MORPH ####[address] [address] Glucose [Mass/Vol] 106 mg/dL Normal 82-115 [facility] ([place] Comment on above: Performed By: #### C BC, BMP, GFR, DIFF, MORPH ####[address] [address] Potassium [Moles/Vol] 3.9 mmol/L Normal 3.5-5.0 [facility] ([place]) Comment on above: Performed By: #### C BC, BMP, GFR, DIFF, MORPH ####[address] [address] Urea nitrogen [Mass/Vol] 9.0 mg/dL Normal 8.0-22.0 [facility] ([place]) Comment on above: Performed By: #### C BC, BMP, GFR, DIFF, MORPH ####[place] [address] Urea nitrogen/Creatinine [Mass ratio] 19.6 ratio Normal 10.0-22.0 [facility] ([place]) Comment on above: Performed By: #### C BC, BMP, GFR, DIFF, MORPH ####[place] [address] Chloride [Moles/Vol] 101 mmol/L Normal 98-110 [facility] ([place]) Comment on above: Performed By: #### C BC, BMP, GFR, DIFF, MORPH ####[place] [address] Sodium [Moles/Vol] 135 mmol/L Low 136-145 [facility] ([place] Comment on above: Performed By: #### C BC, BMP, GFR, DIFF, MORPH ####[place] [address] CBCon 09-01-2019 Erythrocyte distribution width (RBC) [Ratio] 14.7 % Normal 11.5-15.5 [facility] ([place]) Comment on above: Performed By: #### C BC, BMP, GFR, DIFF, MORPH ####[place] [address] Hematocrit (Bld) [Volume fraction] 29.6 % Low 34.0-46.0 [facility] ([place]) Comment on above: Performed By: #### C BC, BMP, GFR, DIFF, MORPH ####[place] [address] Hemoglobin (Bld) [Mass/Vol] 9.9 G/dL Low 12.0-16.0 [facility] ([place]) Comment on above: Performed By: #### C BC, BMP, GFR, DIFF, MORPH ####[place] [address] MCH (RBC) [Entitic mass] 32.8 pg Normal 27.0-33.0 [facility] ([place]) Comment on above: Performed By: #### C BC, BMP, GFR, DIFF, MORPH ####[address] [address] MCHC (RBC) [Mass/Vol] 33.5 G/dL Normal 32.0-36.0 [facility] ([place]) Comment on above: Performed By: #### C BC, BMP, GFR, DIFF, MORPH ####[place] [address] MCV (RBC) [Entitic vol] 97.9 fL Normal 80.0-99.0 A [facility] ([place]) Comment on above: Performed By: #### C BC, BMP, GFR, DIFF, MORPH ####[place] [address] Platelet mean volume (Bld) [Entitic vol] 7.0 fL Normal 6.6-10.5 [facility] ([place]) Comment on above: Performed By: #### C BC, BMP, GFR, DIFF, MORPH ####[place] [address] Platelets (Bld) [#/Vol] 481 10 3/mcL High 150-450 [facility] ([place]) Comment on above: Performed By: #### C BC, BMP, GFR, DIFF, MORPH ####[place] [address] RBC (Bld) [#/Vol] 3.03 10 6/mcL Low 4.10-5.30 [facility] ([place]) Comment on above: Performed By: #### C BC, BMP, GFR, DIFF, MORPH ####[place] [address] WBC (Bld) [#/Vol] 14.90 10 3/mcL High 4.50-10.80 [facility] ([place]) Comment on above: Performed By: #### C BC, BMP, GFR, DIFF, MORPH ####[place] [address] .Auto Diffon 08-31-2019 Ammonia (P) [Mass/Vol] 1.40 10 3/mcL Normal 0.09-1.40 [facility] ([place]) Comment on above: Performed By: #### C BC, ADIFF, ANEU, BMP, GFR ####[address] [address] Basophils (Bld) [#/Vol] 0.10 10 3/mcL Normal 0.00-0.27 [facility] ([place]) Comment on above: Performed By: #### C BC, ADIFF, ANEU, BMP, GFR ####[address] [address] Basophils/100 WBC (Bld) 0.5 % Normal 0.0-2.5 [facility] ([place]) Comment on above: Performed By: #### C BC, ADIFF, ANEU, BMP, GFR ####[address] [address] Eosinophils (Bld) [#/Vol] 0.50 10 3/mcL Normal 0.00-0.65 [facility] ([place]) Comment on above: Performed By: #### C BC, ADIFF, ANEU, BMP, GFR ####[address] [address] Eosinophils/100 WBC (Bld) 3.3 % Normal 0.0-6.0 [facility] ([place]) Comment on above: Performed By: #### C BC, ADIFF, ANEU, BMP, GFR ####[address] [address] Lymphocytes (Bld) [#/Vol] 1.30 10 3/mcL Normal 0.90-4.32 [facility] ([place]) Comment on above: Performed By: #### C BC, ADIFF, ANEU, BMP, GFR ####[address] [address] Lymphocytes/100 WBC (Bld) 8.1 % Low 20.0-40.0 [facility] ([place]) Comment on above: Performed By: #### C BC, ADIFF, ANEU, BMP, GFR ####[address] [address] Monocytes/100 WBC (Bld) 9.0 % Normal 2.0-13.0 [facility] ([place]) Comment on above: Performed By: #### C BC, ADIFF, ANEU, BMP, GFR ####[address] [address] Neutrophils/100 WBC (Bld) 79.1 % High 50.0-75.0 [facility] ([place]) Comment on above: Performed By: #### C BC, ADIFF, ANEU, BMP, GFR ####[address] [address] .GFRon 08-31-2019 GFR Non- >60 Normal [facility] ([place] Comment on above: Result Comment: GFR Population [...] #### C BC, ADIFF, ANEU, BMP, GFR ####[place] [address] GFR >60 Normal [facility] ([place]) Comment on above: Result Comment: GFR Population [...] #### C BC, ADIFF, ANEU, BMP, GFR ####[address] [address] .NEUABSon 08-31-2019 Neutrophils (Bld) [#/Vol] 12.50 10 3/mcL High 2.25-8.10 [facility] ([place]) Comment on above: Performed By: #### C BC, ADIFF, ANEU, BMP, GFR ####[place] [address] BMPon 08-31-2019 Creatinine [Mass/Vol] 0.51 mg/dL Normal 0.50-1.20 [facility] ([place]) Comment on above: Performed By: #### C BC, ADIFF, ANEU, BMP, GFR ####[place] [address] Urea nitrogen/Creatinine [Mass ratio] 19.6 ratio Normal 10.0-22.0 [facility] ([place]) Comment on above: Performed By: #### C BC, ADIFF, ANEU, BMP, GFR ####[place] [address] Calcium [Mass/Vol] 8.6 mg/dL Normal 8.4-10.1 [facility] ([place]) Comment on above: Performed By: #### C BC, ADIFF, ANEU, BMP, GFR ####[place] [address] Chloride [Moles/Vol] 101 mmol/L Normal 98-110 [facility] ([place]) Comment on above: Performed By: #### C BC, ADIFF, ANEU, BMP, GFR ####[place] [address] CO2 [Moles/Vol] 25 mmol/L Normal 22-32 [facility]ly [facility] ([place]) Comment on above: Performed By: #### C BC, ADIFF, ANEU, BMP, GFR ####[place] [address] Electrolyte Balance 9.0 mEq/L Normal 4.0-15.0 [facility] ([place]) Comment on above: Performed By: #### C BC, ADIFF, ANEU, BMP, GFR ####[place] [address] Glucose [Mass/Vol] 112 mg/dL Normal 82-115 [facility]ly [facility] ([place]) Comment on above: Performed By: #### C BC, ADIFF, ANEU, BMP, GFR ####[place] [address] Potassium [Moles/Vol] 4.0 mmol/L Normal 3.5-5.0 [facility] ([place]) Comment on above: Performed By: #### C BC, ADIFF, ANEU, BMP, GFR ####[place] [address] Sodium [Moles/Vol] 135 mmol/L Low 136-145 Formerly [facility] ([place]) Comment on above: Performed By: #### C BC, ADIFF, ANEU, BMP, GFR ####[place] [address] Urea nitrogen [Mass/Vol] 10.0 mg/dL Normal 8.0-22.0 [facility] ([place]) Comment on above: Performed By: #### C BC, ADIFF, ANEU, BMP, GFR ####[place] [address] CBCon 08-31-2019 Erythrocyte distribution width (RBC) [Ratio] 14.7 % Normal 11.5-15.5 [facility] ([place]) Comment on above: Performed By: #### C BC, ADIFF, ANEU, BMP, GFR ####[place] [address] Hematocrit (Bld) [Volume fraction] 29.1 % Low 34.0-46.0 [facility] ([place] Comment on above: Performed By: #### C BC, ADIFF, ANEU, BMP, GFR ####[address] [address] Hemoglobin (Bld) [Mass/Vol] 9.5 G/dL Low 12.0-16.0 [facility] ([place]) Comment on above: Performed By: #### C BC, ADIFF, ANEU, BMP, GFR ####[place] [address] MCH (RBC) [Entitic mass] 32.5 pg Normal 27.0-33.0 [facility] ([place] Comment on above: Performed By: #### C BC, ADIFF, ANEU, BMP, GFR ####[address] [address] MCHC (RBC) [Mass/Vol] 32.7 G/dL Normal 32.0-36.0 [facility] ([place]) Comment on above: Performed By: #### C BC, ADIFF, ANEU, BMP, GFR ####[place] [address] MCV (RBC) [Entitic vol] 99.3 fL High 80.0-99.0 [facility] ([place]) Comment on above: Performed By: #### C BC, ADIFF, ANEU, BMP, GFR ####[place] [address] Platelet mean volume (Bld) [Entitic vol] 7.3 fL Normal 6.6-10.5 [facility] ([place] Comment on above: Performed By: #### C BC, ADIFF, ANEU, BMP, GFR ####[place] [address] Platelets (Bld) [#/Vol] 485 10 3/mcL High 150-450 [facility] ([place] Comment on above: Performed By: #### C BC, ADIFF, ANEU, BMP, GFR ####[address] [address] RBC (Bld) [#/Vol] 2.93 10 6/mcL Low 4.10-5.30 [facility] ([place]) Comment on above: Performed By: #### C BC, ADIFF, ANEU, BMP, GFR ####[address] [address] WBC (Bld) [#/Vol] 15.80 10 3/mcL High 4.50-10.80 [facility] ([place]) Comment on above: Performed By: #### C BC, ADIFF, ANEU, BMP, GFR ####[place] [id number] .GFRon 08-30-2019 GFR >60 Normal [facility] ([place]) Comment on above: Result Comment: GFR Population [...] #### C BC, BMP, GFR, DIFF, MORPH ####[address] [address] GFR Non- >60 Normal [facility] ([place] Comment on above: Result Comment: GFR Population [...] #### C BC, BMP, GFR, DIFF, MORPH ####[address] [address] .Manual Diffon 08-30-2019 Bands 1.0 % Normal 0.0-5.0 [facility] ([place] Comment on above: Performed By: #### C BC, BMP, GFR, DIFF, MORPH ####[address] [address] Basophil %, Manual 0.0 % Normal 0.0-2.5 [facility] ([place] Comment on above: Performed By: #### C BC, BMP, GFR, DIFF, MORPH ####[address] [address] Basophil, Abs Manual 0.00 10 3/mcL Normal 0.00-0.27 [facility] ([place] Comment on above: Performed By: #### C BC, BMP, GFR, DIFF, MORPH ####[address] [address] Cells Counted 100 Normal [facility] ([place] Comment on above: Performed By: #### C BC, BMP, GFR, DIFF, MORPH ####[address] [address] Eosinophil %, Manual 4.0 % Normal 0.0-6.0 [facility] ([place]) Comment on above: Performed By: #### C BC, BMP, GFR, DIFF, MORPH ####[address] [address] Eosinophil, Abs Manual 0.64 10 3/mcL Normal 0.00-0.65 [facility] ([place] Comment on above: Performed By: #### C BC, BMP, GFR, DIFF, MORPH ####[address] [address] Lymphocyte %, Manual 15.0 % Low 20.0-40.0 [facility] ([place] Comment on above: Performed By: #### C BC, BMP, GFR, DIFF, MORPH ####[address] [address] Lymphocyte, Abs Manual 2.38 10 3/mcL Normal 0.90-4.32 [facility] ([place] Comment on above: Performed By: #### C BC, BMP, GFR, DIFF, MORPH ####[address] [address] Metamyelocytes/100 WBC (Bld) 1.0 % Normal [facility] ([place] Comment on above: Performed By: #### C BC, BMP, GFR, DIFF, MORPH ####[address] [address] Monocyte %, Manual 9.0 % Normal 2.0-13.0 [facility] ([place] Comment on above: Performed By: #### C BC, BMP, GFR, DIFF, MORPH ####[place] [address] Monocyte, Abs Manual 1.43 10 3/mcL High 0.09-1.40 [facility] ([place] Comment on above: Performed By: #### C BC, BMP, GFR, DIFF, MORPH ####[place] [address] Neutrophil %, Manual 70.0 % Normal 50.0-75.0 [facility] ([place] Comment on above: Performed By: #### C BC, BMP, GFR, DIFF, MORPH ####[place] [address] Neutrophil, Abs Manual 11.29 10 3/mcL High 2.25-8.10 [facility] ([place] Comment on above: Performed By: #### C BC, BMP, GFR, DIFF, MORPH ####[place] [address] .Morphon 08-30-2019 Platelets (Bld) [#/Vol] Slt Increased Normal [facility] ([place] Comment on above: Performed By: #### C BC, BMP, GFR, DIFF, MORPH ####[place] [address] Polychrom Slight Normal [facility] ([place] Comment on above: Performed By: #### C BC, BMP, GFR, DIFF, MORPH ####[place] [address] BMPon 08-30-2019 Creatinine [Mass/Vol] 0.47 mg/dL Low 0.50-1.20 [facility] ([place] Comment on above: Performed By: #### C BC, BMP, GFR, DIFF, MORPH ####[place] [address] Urea nitrogen/Creatinine [Mass ratio] 19.1 ratio Normal 10.0-22.0 [facility] ([place] Comment on above: Performed By: #### C BC, BMP, GFR, DIFF, MORPH ####[address] [address] Calcium [Mass/Vol] 8.4 mg/dL Normal 8.4-10.1 [facility] ([place] Comment on above: Performed By: #### C BC, BMP, GFR, DIFF, MORPH ####[address] [address] Chloride [Moles/Vol] 100 mmol/L Normal 98-110 [facility] ([place] Comment on above: Performed By: #### C BC, BMP, GFR, DIFF, MORPH ####[address] [address] CO2 [Moles/Vol] 26 mmol/L Normal 22-32 [facility] ([place] Comment on above: Performed By: #### C BC, BMP, GFR, DIFF, MORPH ####[address] [address] Electrolyte Balance 8.0 mEq/L Normal 4.0-15.0 [facility] ([place]) Comment on above: Performed By: #### C BC, BMP, GFR, DIFF, MORPH ####[address] [address] Glucose [Mass/Vol] 103 mg/dL Normal 82-115 [facility] ([place] Comment on above: Performed By: #### C BC, BMP, GFR, DIFF, MORPH ####[address] [address] Potassium [Moles/Vol] 3.3 mmol/L Low 3.5-5.0 [facility] ([place] Comment on above: Performed By: #### C BC, BMP, GFR, DIFF, MORPH ####[address] [address] Sodium [Moles/Vol] 134 mmol/L Low 136-145 [facility] ([place] Comment on above: Performed By: #### C BC, BMP, GFR, DIFF, MORPH ####[address] [address] Urea nitrogen [Mass/Vol] 9.0 mg/dL Normal 8.0-22.0 [facility] ([place] Comment on above: Performed By: #### C BC, BMP, GFR, DIFF, MORPH ####[place] [address] CBCon 08-30-2019 Erythrocyte distribution width (RBC) [Ratio] 14.7 % Normal 11.5-15.5 [facility] ([place] Comment on above: Performed By: #### C BC, BMP, GFR, DIFF, MORPH ####[place] [address] Hematocrit (Bld) [Volume fraction] 29.8 % Low 34.0-46.0 [facility] ([place] Comment on above: Performed By: #### C BC, BMP, GFR, DIFF, MORPH ####[place] [address] Hemoglobin (Bld) [Mass/Vol] 9.8 G/dL Low 12.0-16.0 [facility] ([place] Comment on above: Performed By: #### C BC, BMP, GFR, DIFF, MORPH ####[place] [address] MCH (RBC) [Entitic mass] 32.7 pg Normal 27.0-33.0 [facility] ([place] Comment on above: Performed By: #### C BC, BMP, GFR, DIFF, MORPH ####[place] [address] MCHC (RBC) [Mass/Vol] 33.1 G/dL Normal 32.0-36.0 [facility] ([place] Comment on above: Performed By: #### C BC, BMP, GFR, DIFF, MORPH ####[place] [address] MCV (RBC) [Entitic vol] 98.7 fL Normal 80.0-99.0 [facility] ([place] Comment on above: Performed By: #### C BC, BMP, GFR, DIFF, MORPH ####[place] [address] Platelet mean volume (Bld) [Entitic vol] 7.1 fL Normal 6.6-10.5 [facility] ([place] Comment on above: Performed By: #### C BC, BMP, GFR, DIFF, MORPH ####[address] [address] Platelets (Bld) [#/Vol] 504 10 3/mcL High 150-450 [facility] ([place] Comment on above: Performed By: #### C BC, BMP, GFR, DIFF, MORPH ####[place] [address] RBC (Bld) [#/Vol] 3.02 10 6/mcL Low 4.10-5.30 [facility] ([place]) Comment on above: Performed By: #### C BC, BMP, GFR, DIFF, MORPH ####[place] [id number] WBC (Bld) [#/Vol] 15.90 10 3/mcL High 4.50-10.80 [facility] ([place] Comment on above: Performed By: #### C BC, BMP, GFR, DIFF, MORPH ####[place] [address] .GFRon 08-29-2019 GFR Non- >60 Normal [facility] ([place] Comment on above: Result Comment: GFR Population [...] #### C BC, BMP, GFR, DIFF, MORPH ####[place] [address] GFR >60 Normal [facility] ([place] Comment on above: Result Comment: GFR Population [...] #### C BC, BMP, GFR, DIFF, MORPH ####[place] [address] .Manual Diffon 08-29-2019 Basophil %, Manual 1.0 % Normal 0.0-2.5 [facility] ([place] Comment on above: Performed By: #### C BC, BMP, GFR, DIFF, MORPH ####[place] [address] Basophil, Abs Manual 0.18 10 3/mcL Normal 0.00-0.27 [facility] ([place] Comment on above: Performed By: #### C BC, BMP, GFR, DIFF, MORPH ####[place] [address] Cells Counted 100 Normal [facility] ([place] Comment on above: Performed By: #### C BC, BMP, GFR, DIFF, MORPH ####[place] [address] Eosinophil %, Manual 0.0 % Normal 0.0-6.0 [facility] ([place] Comment on above: Performed By: #### C BC, BMP, GFR, DIFF, MORPH ####[place] [address] Eosinophil, Abs Manual 0.00 10 3/mcL Normal 0.00-0.65 [facility] ([place] Comment on above: Performed By: #### C BC, BMP, GFR, DIFF, MORPH ####[place] [address] Lymphocyte %, Manual 7.0 % Low 20.0-40.0 [facility] ([place] Comment on above: Performed By: #### C BC, BMP, GFR, DIFF, MORPH ####[address] [address] Lymphocyte, Abs Manual 1.29 10 3/mcL Normal 0.90-4.32 [facility] ([place] Comment on above: Performed By: #### C BC, BMP, GFR, DIFF, MORPH ####[place] [address] Monocyte %, Manual 5.0 % Normal 2.0-13.0 [facility] ([place] Comment on above: Performed By: #### C BC, BMP, GFR, DIFF, MORPH ####[place] [address] Monocyte, Abs Manual 0.92 10 3/mcL Normal 0.09-1.40 [facility] ([place] Comment on above: Performed By: #### C BC, BMP, GFR, DIFF, MORPH ####[place] [address] Myelocyte 2.0 % Normal [facility] ([place] Comment on above: Performed By: #### C BC, BMP, GFR, DIFF, MORPH ####[place] [address] Neutrophil %, Manual 85.0 % High 50.0-75.0 [facility] ([place] Comment on above: Performed By: #### C BC, BMP, GFR, DIFF, MORPH ####[place] [address] Neutrophil, Abs Manual 15.64 10 3/mcL High 2.25-8.10 [facility] ([place] Comment on above: Performed By: #### C BC, BMP, GFR, DIFF, MORPH ####[place] [address] .Morphon 08-29-2019 Platelets (Bld) [#/Vol] Normal Normal [facility] ([place] Comment on above: Performed By: #### C BC, BMP, GFR, DIFF, MORPH ####[address] [address] Polychrom Slight Normal [facility] ([place] Comment on above: Performed By: #### C BC, BMP, GFR, DIFF, MORPH ####[address] [address] BMPon 08-29-2019 Calcium [Mass/Vol] 7.8 mg/dL Low 8.4-10.1 [facility] ([place] Comment on above: Performed By: #### C BC, BMP, GFR, DIFF, MORPH ####[place] [address] Chloride [Moles/Vol] 96 mmol/L Low 98-110 [facility] ([place] Comment on above: Performed By: #### C BC, BMP, GFR, DIFF, MORPH ####[place] [address] CO2 [Moles/Vol] 26 mmol/L Normal 22-32 [facility] ([place] Comment on above: Performed By: #### C BC, BMP, GFR, DIFF, MORPH ####[place] [address] Creatinine [Mass/Vol] 0.44 mg/dL Low 0.50-1.20 [facility] ([place] Comment on above: Performed By: #### C BC, BMP, GFR, DIFF, MORPH ####[place] [address] Electrolyte Balance 9.0 mEq/L Normal 4.0-15.0 [facility] ([place] Comment on above: Performed By: #### C BC, BMP, GFR, DIFF, MORPH ####[place] [address] Glucose [Mass/Vol] 146 mg/dL High 82-115 [facility] ([place] Comment on above: Performed By: #### C BC, BMP, GFR, DIFF, MORPH ####[place] [address] Potassium [Moles/Vol] 3.4 mmol/L Low 3.5-5.0 [facility] ([place] Comment on above: Performed By: #### C BC, BMP, GFR, DIFF, MORPH ####[place] [address] Sodium [Moles/Vol] 131 mmol/L Low 136-145 [facility] ([place] Comment on above: Performed By: #### C BC, BMP, GFR, DIFF, MORPH ####[place] [address] Urea nitrogen [Mass/Vol] 9.0 mg/dL Normal 8.0-22.0 [facility] ([place] Comment on above: Performed By: #### C BC, BMP, GFR, DIFF, MORPH ####[place] [address] Urea nitrogen/Creatinine [Mass ratio] 20.5 ratio Normal 10.0-22.0 [facility] ([place] Comment on above: Performed By: #### C BC, BMP, GFR, DIFF, MORPH ####[place] [address] CBCon 08-29-2019 Erythrocyte distribution width (RBC) [Ratio] 14.4 % Normal 11.5-15.5 [facility] ([place] Comment on above: Performed By: #### C BC, BMP, GFR, DIFF, MORPH ####[place] [address] Hematocrit (Bld) [Volume fraction] 29.2 % Low 34.0-46.0 [facility] ([place] Comment on above: Performed By: #### C BC, BMP, GFR, DIFF, MORPH ####[place] [address] Hemoglobin (Bld) [Mass/Vol] 9.7 G/dL Low 12.0-16.0 [facility] ([place] Comment on above: Performed By: #### C BC, BMP, GFR, DIFF, MORPH ####[place] [address] MCH (RBC) [Entitic mass] 32.5 pg Normal 27.0-33.0 [facility] ([place] Comment on above: Performed By: #### C BC, BMP, GFR, DIFF, MORPH ####[address] [address] MCHC (RBC) [Mass/Vol] 33.2 G/dL Normal 32.0-36.0 [facility] ([place] Comment on above: Performed By: #### C BC, BMP, GFR, DIFF, MORPH ####[place] [address] MCV (RBC) [Entitic vol] 97.8 fL Normal 80.0-99.0 [facility] ([place] Comment on above: Performed By: #### C BC, BMP, GFR, DIFF, MORPH ####[place] [address] Platelet mean volume (Bld) [Entitic vol] 6.7 fL Normal 6.6-10.5 [facility] ([place] Comment on above: Performed By: #### C BC, BMP, GFR, DIFF, MORPH ####[place] [address] Platelets (Bld) [#/Vol] 434 10 3/mcL Normal 150-450 [facility] ([place] Comment on above: Performed By: #### C BC, BMP, GFR, DIFF, MORPH ####[place] [address] RBC (Bld) [#/Vol] 2.98 10 6/mcL Low 4.10-5.30 [facility] ([place]) Comment on above: Performed By: #### C BC, BMP, GFR, DIFF, MORPH ####[place] [address] WBC (Bld) [#/Vol] 18.40 10 3/mcL High 4.50-10.80 [facility] ([place] Comment on above: Performed By: #### C BC, BMP, GFR, DIFF, MORPH ####[place] [address] .Auto Diffon 08-28-2019 Ammonia (P) [Mass/Vol] 2.30 10 3/mcL High 0.09-1.40 [facility] ([place] Comment on above: Performed By: #### M G, CMP, GFR, CBC, ADIFF, ANEU ####[address] [address] Basophils (Bld) [#/Vol] 0.10 10 3/mcL Normal 0.00-0.27 [facility] ([place]) Comment on above: Performed By: #### M G, CMP, GFR, CBC, ADIFF, ANEU ####[address] [address] Basophils/100 WBC (Bld) 0.4 % Normal 0.0-2.5 [facility] ([place]) Comment on above: Performed By: #### M G, CMP, GFR, CBC, ADIFF, ANEU ####[address] [address] Eosinophils (Bld) [#/Vol] 0.50 10 3/mcL Normal 0.00-0.65 [facility] ([place]) Comment on above: Performed By: #### M G, CMP, GFR, CBC, ADIFF, ANEU ####[address] [address] Eosinophils/100 WBC (Bld) 2.8 % Normal 0.0-6.0 [facility] ([place] Comment on above: Performed By: #### M G, CMP, GFR, CBC, ADIFF, ANEU ####[address] [address] Lymphocytes (Bld) [#/Vol] 1.50 10 3/mcL Normal 0.90-4.32 [facility] ([place] Comment on above: Performed By: #### M G, CMP, GFR, CBC, ADIFF, ANEU ####[address] [address] Lymphocytes/100 WBC (Bld) 8.2 % Low 20.0-40.0 [facility] ([place] Comment on above: Performed By: #### M G, CMP, GFR, CBC, ADIFF, ANEU ####[address] [address] Monocytes/100 WBC (Bld) 13.1 % High 2.0-13.0 [facility] ([place] Comment on above: Performed By: #### M G, CMP, GFR, CBC, ADIFF, ANEU ####[address] [address] Neutrophils/100 WBC (Bld) 75.5 % High 50.0-75.0 [facility] ([place] Comment on above: Performed By: #### M G, CMP, GFR, CBC, ADIFF, ANEU ####[address] [address] .GFRon 08-28-2019 GFR >60 Normal [facility] ([place]) Comment on above: Result Comment: GFR Population [...] meters Performed By: #### G FR, BMP ####[address] [address] GFR Non- >60 Normal [facility] ([place] Comment on above: Result Comment: GFR Population [...] meters Performed By: #### G FR, BMP ####[address] [address] .NEUABSon 08-28-2019 Neutrophils (Bld) [#/Vol] 13.50 10 3/mcL High 2.25-8.10 [facility] ([place] Comment on above: Performed By: #### M G, CMP, GFR, CBC, ADIFF, ANEU ####[place] [address] BMPon 08-28-2019 Potassium [Moles/Vol] 3.5 mmol/L Normal 3.5-5.0 [facility] ([place] Comment on above: Performed By: #### G FR, BMP ####[place] [address] Calcium [Mass/Vol] 7.5 mg/dL Low 8.4-10.1 [facility] ([place] Comment on above: Performed By: #### G FR, BMP ####[place] [address] Chloride [Moles/Vol] 100 mmol/L Normal 98-110 [facility] ([place] Comment on above: Performed By: #### G FR, BMP ####[place] [address] CO2 [Moles/Vol] 25 mmol/L Normal 22-32 [facility] ([place] Comment on above: Performed By: #### G FR, BMP ####[place] [address] Creatinine [Mass/Vol] 0.45 mg/dL Low 0.50-1.20 [facility] ([place] Comment on above: Performed By: #### G FR, BMP ####[place] [address] Electrolyte Balance 8.0 mEq/L Normal 4.0-15.0 [facility] ([place] Comment on above: Performed By: #### G FR, BMP ####[place] [address] Glucose [Mass/Vol] 103 mg/dL Normal 82-115 [facility] ([place] Comment on above: Performed By: #### G FR, BMP ####[place] [address] Sodium [Moles/Vol] 133 mmol/L Low 136-145 [facility] ([place] Comment on above: Performed By: #### G FR, BMP ####[address] [address] Urea nitrogen [Mass/Vol] 10.0 mg/dL Normal 8.0-22.0 [facility] ([place] Comment on above: Performed By: #### G FR, BMP ####[place] [address] Urea nitrogen/Creatinine [Mass ratio] 22.2 ratio High 10.0-22.0 [facility] ([place] Comment on above: Performed By: #### G FR, BMP ####[place] [address] CBCon 08-28-2019 Erythrocyte distribution width (RBC) [Ratio] 14.2 % Normal 11.5-15.5 [facility] ([place] Comment on above: Performed By: #### M G, CMP, GFR, CBC, ADIFF, ANEU ####[place] [address] Hematocrit (Bld) [Volume fraction] 27.4 % Low 34.0-46.0 [facility] ([place] Comment on above: Performed By: #### M G, CMP, GFR, CBC, ADIFF, ANEU ####[place] [address] Hemoglobin (Bld) [Mass/Vol] 9.1 G/dL Low 12.0-16.0 [facility] ([place] Comment on above: Performed By: #### M G, CMP, GFR, CBC, ADIFF, ANEU ####[place] [address] MCH (RBC) [Entitic mass] 33.0 pg Normal 27.0-33.0 [facility] ([place] Comment on above: Performed By: #### M G, CMP, GFR, CBC, ADIFF, ANEU ####[address] [address] MCHC (RBC) [Mass/Vol] 33.2 G/dL Normal 32.0-36.0 [facility] ([place] Comment on above: Performed By: #### M G, CMP, GFR, CBC, ADIFF, ANEU ####[address] [address] MCV (RBC) [Entitic vol] 99.6 fL High 80.0-99.0 [facility] ([place] Comment on above: Performed By: #### M G, CMP, GFR, CBC, ADIFF, ANEU ####[place] [address] Platelet mean volume (Bld) [Entitic vol] 7.1 fL Normal 6.6-10.5 [facility] ([place] Comment on above: Performed By: #### M G, CMP, GFR, CBC, ADIFF, ANEU ####[place] [id number] Platelets (Bld) [#/Vol] 363 10 3/mcL Normal 150-450 [facility] ([place] Comment on above: Performed By: #### M G, CMP, GFR, CBC, ADIFF, ANEU ####[place] [id number] RBC (Bld) [#/Vol] 2.75 10 6/mcL Low 4.10-5.30 [facility] ([place]) Comment on above: Performed By: #### M G, CMP, GFR, CBC, ADIFF, ANEU ####[place] [id number] WBC (Bld) [#/Vol] 17.90 10 3/mcL High 4.50-10.80 [facility] ([place] Comment on above: Performed By: #### M G, CMP, GFR, CBC, ADIFF, ANEU ####[address] [address] CBLon 08-28-2019 CBL . MICRO - Microbiology [...] Locations *1: This test was performed at: [address], [address] [place] [address] ([place]) Comment on above: Performed By: #### C BC, CMP, GFR, DIFF, MORPH #### [place] [address] CBL . MICRO - Microbiology PROCEDURE: Blood [...] Locations *1: This test was performed at: [facility], [address] [place] [address], [address] [place] [address] ([place]) Comment on above: Performed By: #### C BC, CMP, GFR, DIFF, MORPH #### [place] [address] .GFRon 08-27-2019 GFR >60 [facility] ([place]) Comment on above: Result Comment: GFR Population [...] 15 mL/min/1.73 square meters Performed By: #### Eddie G, CMP, GFR, CBC, ADIFF, ANEU ####[address] [address] GFR Non- >60 Normal [facility] ([place] Comment on above: Result Comment: GFR Population [...] 15 mL/min/1.73 square meters Performed By: #### Eddie G, CMP, GFR, CBC, ADIFF, ANEU ####[address] [address] .Manual Diffon 08-27-2019 Bands 1.0 % Normal 0.0-5.0 [facility] ([place] Comment on above: Performed By: #### Anatoly BC, DIFF, MORPH ####[address] [address] Basophil %, Manual 0.0 % Normal 0.0-2.5 [facility] ([place] Comment on above: Performed By: #### Anatoly BC, DIFF, MORPH ####[address] [address] Basophil, Abs Manual 0.00 10 3/mcL Normal 0.00-0.27 [facility] ([place]) Comment on above: Performed By: #### C BC, DIFF, MORPH ####[address] [address] Cells Counted 100 Normal [facility] ([place] Comment on above: Performed By: #### C BC, DIFF, MORPH ####[address] [address] Eosinophil %, Manual 5.0 % Normal 0.0-6.0 [facility] ([place]) Comment on above: Performed By: #### C BC, DIFF, MORPH ####[place] [address] Eosinophil, Abs Manual 0.84 10 3/mcL High 0.00-0.65 [facility] ([place] Comment on above: Performed By: #### C BC, DIFF, MORPH ####[place] [address] Lymphocyte %, Manual 5.0 % Low 20.0-40.0 [facility] ([place]) Comment on above: Performed By: #### C BC, DIFF, MORPH ####[address] [address] Lymphocyte, Abs Manual 0.84 10 3/mcL Low 0.90-4.32 [facility] ([place] Comment on above: Performed By: #### C BC, DIFF, MORPH ####[place] [address] Monocyte %, Manual 6.0 % Normal 2.0-13.0 [facility] ([place] Comment on above: Performed By: #### C BC, DIFF, MORPH ####[place] [address] Monocyte, Abs Manual 1.01 10 3/mcL Normal 0.09-1.40 [facility] ([place] Comment on above: Performed By: #### C BC, DIFF, MORPH ####[place] [id number] Neutrophil %, Manual 83.0 % High 50.0-75.0 [facility] ([place]) Comment on above: Performed By: #### C BC, DIFF, MORPH ####[place] [id number] Neutrophil, Abs Manual 14.20 10 3/mcL High 2.25-8.10 Formerly [facility] ([place]) Comment on above: Performed By: #### C BC, DIFF, MORPH ####[place] [id number] .Morphon 08-27-2019 Platelets (Bld) [#/Vol] Normal Normal A [facility] ([place]) Comment on above: Performed By: #### C BC, DIFF, MORPH ####[place] [id number] Polychrom Slight Normal Formerly [facility] ([place]) Comment on above: Performed By: #### C BC, DIFF, MORPH ####[place] [address] CBCon 08-27-2019 Erythrocyte distribution width (RBC) [Ratio] 14.2 % Normal 11.5-15.5 [facility] ([place] Comment on above: Performed By: #### C BC, DIFF, MORPH ####[place] [address] Hematocrit (Bld) [Volume fraction] 29.2 % Low 34.0-46.0 [facility] ([place] Comment on above: Performed By: #### C BC, DIFF, MORPH ####[place] [address] Hemoglobin (Bld) [Mass/Vol] 10.1 G/dL Low 12.0-16.0 [facility] ([place] Comment on above: Performed By: #### C BC, DIFF, MORPH ####[place] [address] MCH (RBC) [Entitic mass] 33.8 pg High 27.0-33.0 [facility] ([place] Comment on above: Performed By: #### C BC, DIFF, MORPH ####[address] [place] [address] MCHC (RBC) [Mass/Vol] 34.6 G/dL Normal 32.0-36.0 [facility] ([place]) Comment on above: Performed By: #### C BC, DIFF, MORPH ####[address] [address] MCV (RBC) [Entitic vol] 97.7 fL Normal 80.0-99.0 [facility] ([place]) Comment on above: Performed By: #### C BC, DIFF, MORPH ####[address] [address] Platelet mean volume (Bld) [Entitic vol] 6.6 fL Normal 6.6-10.5 [facility] ([place] Comment on above: Performed By: #### C BC, DIFF, MORPH ####[address] [address] Platelets (Bld) [#/Vol] 342 10 3/mcL Normal 150-450 [facility] ([place] Comment on above: Performed By: #### C BC, DIFF, MORPH ####[address] [address] RBC (Bld) [#/Vol] 2.99 10 6/mcL Low 4.10-5.30 [facility] ([place]) Comment on above: Performed By: #### C BC, DIFF, MORPH ####[address] [address] WBC (Bld) [#/Vol] 16.90 10 3/mcL High 4.50-10.80 [facility] ([place] Comment on above: Performed By: #### C BC, DIFF, MORPH ####[address] [address] CMPon 08-27-2019 Albumin/Globulin [Mass ratio] 0.8 {ratio} Low 0.9-1.6 [facility] ([place] Comment on above: Performed By: #### M G, CMP, GFR, CBC, ADIFF, ANEU ####[address] [address] ALP [Catalytic activity/Vol] 99 U/L Normal 38-126 [facility] ([place] Comment on above: Performed By: #### M G, CMP, GFR, CBC, ADIFF, ANEU ####[address] [address] ALT [Catalytic activity/Vol] 50 U/L High 10-49 [facility] ([place] Comment on above: Performed By: #### M G, CMP, GFR, CBC, ADIFF, ANEU ####[address] [address] Bili Total 0.9 mg/dL Normal 0.2-1.2 [facility] ([place] Comment on above: Result Comment: Use of this assay is not recommended for patients undergoing treatment with eltrombopag due to the potential for falsely elevated results. Performed By: #### M G, CMP, GFR, CBC, ADIFF, ANEU ####[address] [address] Creatinine [Mass/Vol] 0.39 mg/dL Low 0.50-1.20 [facility] ([place] Comment on above: Performed By: #### M G, CMP, GFR, CBC, ADIFF, ANEU ####[address] [address] Globulin (S) [Mass/Vol] 3.2 G/dL Normal 1.5-3.8 [facility] ([place] Comment on above: Performed By: #### M G, CMP, GFR, CBC, ADIFF, ANEU ####[address] [address] Protein [Mass/Vol] 5.8 G/dL Low 6.0-8.5 [facility] ([place] Comment on above: Performed By: #### M G, CMP, GFR, CBC, ADIFF, ANEU ####[address] [address] Urea nitrogen/Creatinine [Mass ratio] 25.6 ratio High 10.0-22.0 [facility] ([place] Comment on above: Performed By: #### M G, CMP, GFR, CBC, ADIFF, ANEU ####[address] [address] Potassium [Moles/Vol] 2.5 mmol/L Critically abnormal 3.5-5.0 [facility] ([place] Comment on above: Performed By: #### M G, CMP, GFR, CBC, ADIFF, ANEU ####[address] [address] Albumin [Mass/Vol] 2.6 G/dL Low 3.2-4.8 [facility] ([place] Comment on above: Performed By: #### M G, CMP, GFR, CBC, ADIFF, ANEU ####[address] [address] AST [Catalytic activity/Vol] 38 U/L High 8-34 [facility] ([place] Comment on above: Performed By: #### M G, CMP, GFR, CBC, ADIFF, ANEU ####[address] [address] Calcium [Mass/Vol] 7.3 mg/dL Low 8.4-10.1 [facility] ([place] Comment on above: Performed By: #### M G, CMP, GFR, CBC, ADIFF, ANEU ####[address] [address] Chloride [Moles/Vol] 96 mmol/L Low 98-110 [facility] ([place]) Comment on above: Performed By: #### M G, CMP, GFR, CBC, ADIFF, ANEU ####[address] [address] CO2 [Moles/Vol] 27 mmol/L Normal 22-32 [facility] ([place] Comment on above: Performed By: #### M G, CMP, GFR, CBC, ADIFF, ANEU ####[address] [address] Electrolyte Balance 10.0 mEq/L Normal 4.0-15.0 [facility] ([place]) Comment on above: Performed By: #### M G, CMP, GFR, CBC, ADIFF, ANEU ####[address] [address] Glucose [Mass/Vol] 100 mg/dL Normal 82-115 [facility] ([place] Comment on above: Performed By: #### M G, CMP, GFR, CBC, ADIFF, ANEU ####[address] [address] Sodium [Moles/Vol] 133 mmol/L Low 136-145 [facility] ([place] Comment on above: Performed By: #### M G, CMP, GFR, CBC, ADIFF, ANEU ####[address] [address] Urea nitrogen [Mass/Vol] 10.0 mg/dL Normal 8.0-22.0 [facility] ([place] Comment on above: Performed By: #### M G, CMP, GFR, CBC, ADIFF, ANEU ####[address] [address] MGon 08-27-2019 Magnesium [Mass/Vol] 1.9 mg/dL Normal 1.6-2.4 [facility] ([place]) Comment on above: Performed By: #### M G, CMP, GFR, CBC, ADIFF, ANEU ####[address] [address] .Auto Diffon 08-25-2019 Ammonia (P) [Mass/Vol] 1.40 10 3/mcL Normal 0.09-1.40 [facility] ([place] Comment on above: Performed By: #### C BC, CMP, GFR, DIFF, MORPH #### [address] [address] Basophils (Bld) [#/Vol] 0.00 10 3/mcL Normal 0.00-0.27 [facility] ([place] Comment on above: Performed By: #### C BC, CMP, GFR, DIFF, MORPH #### [address] [address] Basophils/100 WBC (Bld) 0.2 % Normal 0.0-2.5 [facility] ([place] Comment on above: Performed By: #### C BC, CMP, GFR, DIFF, MORPH #### [address] [address] Eosinophils (Bld) [#/Vol] 0.10 10 3/mcL Normal 0.00-0.65 [facility] ([place] Comment on above: Performed By: #### C BC, CMP, GFR, DIFF, MORPH #### [address] [address] Eosinophils/100 WBC (Bld) 0.3 % Normal 0.0-6.0 [facility] ([place] Comment on above: Performed By: #### C BC, CMP, GFR, DIFF, MORPH #### [address] [address] Lymphocytes (Bld) [#/Vol] 0.60 10 3/mcL Low 0.90-4.32 [facility] ([place] Comment on above: Performed By: #### C BC, CMP, GFR, DIFF, MORPH #### [address] [address] Lymphocytes/100 WBC (Bld) 2.9 % Low 20.0-40.0 [facility] ([place] Comment on above: Performed By: #### C BC, CMP, GFR, DIFF, MORPH #### [address] [address] Monocytes/100 WBC (Bld) 7.4 % Normal 2.0-13.0 [facility] ([place] Comment on above: Performed By: #### C BC, CMP, GFR, DIFF, MORPH #### [address] [address] Neutrophils/100 WBC (Bld) 89.2 % High 50.0-75.0 [facility] ([place] Comment on above: Performed By: #### C BC, CMP, GFR, DIFF, MORPH #### [address] [address] .GFRon 08-25-2019 GFR >60 Normal [facility] ([place] Comment on above: Result Comment: GFR Population [...] C BC, CMP, GFR, DIFF, MORPH #### [address] [address] GFR Non- >60 Normal [facility] ([place] Comment on above: Result Comment: GFR Population [...] C BC, CMP, GFR, DIFF, MORPH #### [address] [address] .NEUABSon 08-25-2019 Neutrophils (Bld) [#/Vol] 17.20 10 3/mcL High 2.25-8.10 [facility] ([place] Comment on above: Performed By: #### C BC, CMP, GFR, DIFF, MORPH #### [address] [address] BMPon 08-25-2019 Calcium [Mass/Vol] 6.7 mg/dL Critically abnormal 8.4-10.1 [facility] ([place] Comment on above: Performed By: #### C BC, CMP, GFR, DIFF, MORPH #### [address] [address] Potassium [Moles/Vol] 2.6 mmol/L Critically abnormal 3.5-5.0 [facility] ([place] Comment on above: Performed By: #### C BC, CMP, GFR, DIFF, MORPH #### [address] [address] Chloride [Moles/Vol] 99 mmol/L Normal 98-110 [facility] ([place] Comment on above: Performed By: #### C BC, CMP, GFR, DIFF, MORPH #### [address] [address] CO2 [Moles/Vol] 25 mmol/L Normal 22-32 [facility] ([place] Comment on above: Performed By: #### C BC, CMP, GFR, DIFF, MORPH #### [address] [address] Creatinine [Mass/Vol] 0.38 mg/dL Low 0.50-1.20 [facility] ([place] Comment on above: Performed By: #### C BC, CMP, GFR, DIFF, MORPH #### [address] [address] Electrolyte Balance 11.0 mEq/L Normal 4.0-15.0 [facility] ([place] Comment on above: Performed By: #### C BC, CMP, GFR, DIFF, MORPH #### [address] [address] Glucose [Mass/Vol] 72 mg/dL Low 82-115 [facility] ([place] Comment on above: Performed By: #### C BC, CMP, GFR, DIFF, MORPH #### [address] [address] Sodium [Moles/Vol] 135 mmol/L Low 136-145 [facility] ([place] Comment on above: Performed By: #### C BC, CMP, GFR, DIFF, MORPH #### [address] [address] Urea nitrogen [Mass/Vol] 20.0 mg/dL Normal 8.0-22.0 [facility] ([place] Comment on above: Performed By: #### C BC, CMP, GFR, DIFF, MORPH #### [place] [id number] Urea nitrogen/Creatinine [Mass ratio] 52.6 ratio High 10.0-22.0 [facility] ([place] Comment on above: Performed By: #### C BC, CMP, GFR, DIFF, MORPH #### [address] [address] CBCon 08-25-2019 Erythrocyte distribution width (RBC) [Ratio] 14.5 % Normal 11.5-15.5 [facility] ([place] Comment on above: Performed By: #### C BC, CMP, GFR, DIFF, MORPH #### [place] [phone] Hematocrit (Bld) [Volume fraction] 27.5 % Low 34.0-46.0 [facility] ([place] Comment on above: Performed By: #### C BC, CMP, GFR, DIFF, MORPH #### [place] [phone] Hemoglobin (Bld) [Mass/Vol] 9.1 G/dL Low 12.0-16.0 [facility] ([place] Comment on above: Performed By: #### C BC, CMP, GFR, DIFF, MORPH #### [place] [phone] MCH (RBC) [Entitic mass] 33.1 pg High 27.0-33.0 [facility] ([place] Comment on above: Performed By: #### C BC, CMP, GFR, DIFF, MORPH #### [place] [phone] MCHC (RBC) [Mass/Vol] 33.3 G/dL Normal 32.0-36.0 [facility] ([place] Comment on above: Performed By: #### C BC, CMP, GFR, DIFF, MORPH #### [place] [phone] MCV (RBC) [Entitic vol] 99.7 fL High 80.0-99.0 [facility] ([place] Comment on above: Performed By: #### C BC, CMP, GFR, DIFF, MORPH #### [facility] [address] [place] [address] Platelet mean volume (Bld) [Entitic vol] 7.5 fL Normal 6.6-10.5 [facility] ([place] Comment on above: Performed By: #### C BC, CMP, GFR, DIFF, MORPH #### [address] [address] Platelets (Bld) [#/Vol] 211 10 3/mcL Normal 150-450 [facility] ([place] Comment on above: Performed By: #### C BC, CMP, GFR, DIFF, MORPH #### [address] [address] RBC (Bld) [#/Vol] 2.76 10 6/mcL Low 4.10-5.30 [facility] ([place]) Comment on above: Performed By: #### C BC, CMP, GFR, DIFF, MORPH #### [address] [address] WBC (Bld) [#/Vol] 19.30 10 3/mcL High 4.50-10.80 [facility] ([place] Comment on above: Performed By: #### C BC, CMP, GFR, DIFF, MORPH #### [address] [address] COVIDon 08-25-2019 COVID 19 Result WOUND SPECIALIST See Below Normal [facility] ([place]) Comment on above: Result Comment: Nega tive Negative for COVID19 (SARS CoV2) by PCR. This test was developed and its performance characteristics determined by [facility] [place]. This test has been authorized by FDA under an Emergency Use Authorization (EUA). This test has been validated in accordance with the FDA's Guidance Document Policy for Diagnostics Testing in Laboratories Certified to Perform High Complexity Testing under CLIA prior to Emergency use Authorization for Coronavirus Disease 2019 during the Public Health Emergency issued on June 20, 2019. Performed By: [facility] [address] [place] [address] [employer]: Rigoberto Avery III, M.D. CLIA#: [id number] Phone#: Performed By: #### C BC, CMP, GFR, DIFF, MORPH #### [address] [address] COVID 19 Source WOUND SPECIALIST See Below [facility] ([place] Comment on above: Result Comment: Naso pharyngeal Swab Performed By: [facility] [address] [place] [address] [employer]: Ada Clay III#: [id number] Phone#: Performed By: #### C BC, CMP, GFR, DIFF, MORPH #### [place] [address] CURon 08-25-2019 CUR . MICRO - Microbiology [...] Locations *1: This test was performed at: [address], [address] [place] [address] ([place]) Comment on above: Performed By: #### C BC, CMP, GFR, DIFF, MORPH #### [place] [phone] Jeffrey 08-25-2019 Potassium [Moles/Vol] 3.3 mmol/L Low 3.5-5.0 [facility] ([place] Comment on above: Performed By: #### C BC, CMP, GFR, DIFF, MORPH #### [place] [address] MGon 08-25-2019 Magnesium [Mass/Vol] 2.3 mg/dL Normal 1.6-2.4 [facility] ([place]) Comment on above: Performed By: #### C BC, CMP, GFR, DIFF, MORPH #### [address] [address] PHOSon 08-25-2019 Phosphate [Mass/Vol] 2.6 mg/dL Normal 2.5-4.5 [facility] ([place] Comment on above: Performed By: #### C BC, CMP, GFR, DIFF, MORPH #### [address] [address] .Auto Diffon 08-24-2019 Ammonia (P) [Mass/Vol] 1.50 10 3/mcL High 0.09-1.40 [facility] ([place] Comment on above: Performed By: #### C BC, CMP, GFR, DIFF, MORPH #### [place] [address] Basophils (Bld) [#/Vol] 0.00 10 3/mcL Normal 0.00-0.27 [facility] ([place] Comment on above: Performed By: #### C BC, CMP, GFR, DIFF, MORPH #### [address] [address] Basophils/100 WBC (Bld) 0.1 % Normal 0.0-2.5 [facility] ([place] Comment on above: Performed By: #### C BC, CMP, GFR, DIFF, MORPH #### [address] [address] Eosinophils (Bld) [#/Vol] 0.00 10 3/mcL Normal 0.00-0.65 [facility] ([place] Comment on above: Performed By: #### C BC, CMP, GFR, DIFF, MORPH #### [address] [address] Eosinophils/100 WBC (Bld) 0.2 % Normal 0.0-6.0 [facility] ([place] Comment on above: Performed By: #### C BC, CMP, GFR, DIFF, MORPH #### [address] [address] Lymphocytes (Bld) [#/Vol] 1.00 10 3/mcL Normal 0.90-4.32 [facility] ([place] Comment on above: Performed By: #### C BC, CMP, GFR, DIFF, MORPH #### [address] [address] Lymphocytes/100 WBC (Bld) 4.2 % Low 20.0-40.0 [facility] ([place] Comment on above: Performed By: #### C BC, CMP, GFR, DIFF, MORPH #### [address] [address] Monocytes/100 WBC (Bld) 6.7 % Normal 2.0-13.0 [facility] ([place] Comment on above: Performed By: #### C BC, CMP, GFR, DIFF, MORPH #### [address] [address] Neutrophils/100 WBC (Bld) 88.8 % High 50.0-75.0 [facility] ([place] Comment on above: Performed By: #### C BC, CMP, GFR, DIFF, MORPH #### [address] [address] .GFRon 08-24-2019 GFR Non- >60 Normal [facility] ([place] Comment on above: Result Comment: GFR Population [...] C BC, CMP, GFR, DIFF, MORPH #### [address] [address] GFR >60 Normal [facility] ([place] Comment on above: Result Comment: GFR Population [...] C BC, CMP, GFR, DIFF, MORPH #### [address] [address] .Morphon 08-24-2019 Anisocytosis Ql (Bld) Slight Normal [facility] ([place] Comment on above: Performed By: #### C BC, CMP, GFR, DIFF, MORPH #### [place] [address] Hypochrom Slight Normal [facility] ([place] Comment on above: Performed By: #### C BC, CMP, GFR, DIFF, MORPH #### [place] [address] Platelets (Bld) [#/Vol] Normal Normal [facility] ([place] Comment on above: Performed By: #### C BC, CMP, GFR, DIFF, MORPH #### [place] [address] Poik Slight Normal [facility] ([place] Comment on above: Performed By: #### C BC, CMP, GFR, DIFF, MORPH #### [place] [address] .NEUABSon 08-24-2019 Neutrophils (Bld) [#/Vol] 20.50 10 3/mcL High 2.25-8.10 [facility] ([place] Comment on above: Performed By: #### C BC, CMP, GFR, DIFF, MORPH #### [place] [address] AMYon 08-24-2019 Amylase [Catalytic activity/Vol] 85 U/L Normal 25-115 [facility] ([place] Comment on above: Performed By: #### C BC, CMP, GFR, DIFF, MORPH #### [place] [address] APTTon 08-24-2019 aPTT Coag (Bld) [Time] 26.2 s Normal 25.0-35.0 [facility] ([place] Comment on above: Result Comment: For Heparin anticoagulation therapy, the recommended therapeutic range is: 54-77 seconds (APTT Correlation with Anti-Xa therapeutic range of 0.3-0.7 units/ml). PLEASE REFERENCE THE PHARMACY PROTOCOL FOR DOSING. Performed By: #### C BC, CMP, GFR, DIFF, MORPH #### [place] [address] aPTT Coag (Bld) [Time] None Normal [facility] ([place] Comment on above: Performed By: #### C BC, CMP, GFR, DIFF, MORPH #### [place] [address] CBCon 08-24-2019 Erythrocyte distribution width (RBC) [Ratio] 14.2 % Normal 11.5-15.5 [facility] ([place] Comment on above: Performed By: #### C BC, CMP, GFR, DIFF, MORPH #### [place] [address] Hematocrit (Bld) [Volume fraction] 28.9 % Low 34.0-46.0 [facility] ([place] Comment on above: Performed By: #### C BC, CMP, GFR, DIFF, MORPH #### [place] [address] Hemoglobin (Bld) [Mass/Vol] 9.8 G/dL Low 12.0-16.0 [facility] ([place] Comment on above: Performed By: #### C BC, CMP, GFR, DIFF, MORPH #### [place] [phone] MCH (RBC) [Entitic mass] 33.7 pg High 27.0-33.0 [facility] ([place] Comment on above: Performed By: #### C BC, CMP, GFR, DIFF, MORPH #### [address] [address] MCHC (RBC) [Mass/Vol] 33.8 G/dL Normal 32.0-36.0 [facility] ([place] Comment on above: Performed By: #### C BC, CMP, GFR, DIFF, MORPH #### [place] [phone] MCV (RBC) [Entitic vol] 99.7 fL High 80.0-99.0 [facility] ([place] Comment on above: Performed By: #### C BC, CMP, GFR, DIFF, MORPH #### [address] [address] Platelet mean volume (Bld) [Entitic vol] 8.5 fL Normal 6.6-10.5 [facility] ([place] Comment on above: Performed By: #### C BC, CMP, GFR, DIFF, MORPH #### [place] [phone] Platelets (Bld) [#/Vol] 201 10 3/mcL Normal 150-450 [facility] ([place] Comment on above: Performed By: #### C BC, CMP, GFR, DIFF, MORPH #### [place] [phone] RBC (Bld) [#/Vol] 2.90 10 6/mcL Low 4.10-5.30 [facility] ([place]) Comment on above: Performed By: #### C BC, CMP, GFR, DIFF, MORPH #### [place] [phone] WBC (Bld) [#/Vol] 23.10 10 3/mcL High 4.50-10.80 [facility] ([place] Comment on above: Performed By: #### C BC, CMP, GFR, DIFF, MORPH #### [place] [phone] [facility] CK [Catalytic activity/Vol] 71 U/L Normal 7-185 [facility] ([place] Comment on above: Performed By: #### C BC, CMP, GFR, DIFF, MORPH #### [address] [address] CMPon 08-24-2019 Albumin/Globulin [Mass ratio] 1.0 {ratio} Normal 0.9-1.6 [facility] ([place] Comment on above: Performed By: #### C BC, CMP, GFR, DIFF, MORPH #### [address] [address] ALP [Catalytic activity/Vol] 77 U/L Normal 38-126 [facility] ([place] Comment on above: Performed By: #### C BC, CMP, GFR, DIFF, MORPH #### [address] [address] Bili Total 1.1 mg/dL Normal 0.2-1.2 [facility] ([place] Comment on above: Result Comment: Use of this assay is not recommended for patients undergoing treatment with eltrombopag due to the potential for falsely elevated results. Performed By: #### C BC, CMP, GFR, DIFF, MORPH #### [place] [phone] Creatinine [Mass/Vol] 0.48 mg/dL Low 0.50-1.20 [facility] ([place] Comment on above: Performed By: #### C BC, CMP, GFR, DIFF, MORPH #### [address] [address] Globulin (S) [Mass/Vol] 3.0 G/dL Normal 1.5-3.8 A [facility] ([place] Comment on above: Performed By: #### C BC, CMP, GFR, DIFF, MORPH #### [address] [address] Protein [Mass/Vol] 5.9 G/dL Low 6.0-8.5 [facility] ([place] Comment on above: Performed By: #### C BC, CMP, GFR, DIFF, MORPH #### [address] [address] Urea nitrogen/Creatinine [Mass ratio] 41.7 ratio High 10.0-22.0 [facility] ([place] Comment on above: Performed By: #### C BC, CMP, GFR, DIFF, MORPH #### [address] [address] Albumin [Mass/Vol] 2.9 G/dL Low 3.2-4.8 [facility] ([place] Comment on above: Performed By: #### C BC, CMP, GFR, DIFF, MORPH #### [address] [address] ALT [Catalytic activity/Vol] 48 U/L Normal 10-49 [facility] ([place] Comment on above: Performed By: #### C BC, CMP, GFR, DIFF, MORPH #### [address] [address] AST [Catalytic activity/Vol] 27 U/L Normal 8-34 [facility] ([place] Comment on above: Performed By: #### C BC, CMP, GFR, DIFF, MORPH #### [address] [address] Calcium [Mass/Vol] 7.3 mg/dL Low 8.4-10.1 [facility] ([place] Comment on above: Performed By: #### C BC, CMP, GFR, DIFF, MORPH #### [address] [address] Chloride [Moles/Vol] 94 mmol/L Low 98-110 [facility] ([place]) Comment on above: Performed By: #### C BC, CMP, GFR, DIFF, MORPH #### [address] [address] CO2 [Moles/Vol] 28 mmol/L Normal 22-32 [facility] ([place] Comment on above: Performed By: #### C BC, CMP, GFR, DIFF, MORPH #### [address] [address] Electrolyte Balance 10.0 mEq/L Normal 4.0-15.0 [facility] ([place] Comment on above: Performed By: #### C BC, CMP, GFR, DIFF, MORPH #### [address] [address] Glucose [Mass/Vol] 100 mg/dL Normal 82-115 [facility] ([place] Comment on above: Performed By: #### C BC, CMP, GFR, DIFF, MORPH #### [place] [address] Potassium [Moles/Vol] 2.8 mmol/L Low 3.5-5.0 [facility] ([place] Comment on above: Performed By: #### C BC, CMP, GFR, DIFF, MORPH #### [place] [address] Sodium [Moles/Vol] 132 mmol/L Low 136-145 [facility] ([place] Comment on above: Performed By: #### C BC, CMP, GFR, DIFF, MORPH #### [place] [address] Urea nitrogen [Mass/Vol] 20.0 mg/dL Normal 8.0-22.0 [facility] ([place] Comment on above: Performed By: #### C BC, CMP, GFR, DIFF, MORPH #### [place] [address] CRPon 08-24-2019 CRP [Mass/Vol] 32.20 mg/dL High <=0.80 [facility] ([place] Comment on above: Performed By: #### C BC, CMP, GFR, DIFF, MORPH #### [place] [address] CT HEAD OR BRAIN W/O CONTRAS Ton 08-24-2019 CT HEAD OR BRAIN W/O CONTRAST ORIGINAL CT HEAD OR BRAIN W/O CONTRAST CLINICAL STATEMENT: SDH. . Patient fell and hit back of head. Subdural hemorrhage. Patient transferred from [facility]. TECHNIQUE: Axial CT [...] Date: 08/24/2019 9:25:31 AM Ordering Provider:Cristina St [facility] ([place]) DIMERon 08-24-2019 Fibrin D-dimer FEU IA (Bld) [Mass/Vol] 1800 ng/mL D-DU High 0-230 [facility] ([place] Comment on above: Result Comment: Resu lts [...] C BC, CMP, GFR, DIFF, MORPH #### [address] [address] Trixie 08-24-2019 Ferritin [Mass/Vol] 236 ng/mL Normal 8-252 [facility] ([place] Comment on above: Performed By: #### C BC, CMP, GFR, DIFF, MORPH #### [address] [address] FIBon 08-24-2019 Fibrinogen 482 mg/dL Normal 250-550 [facility] ([place] Comment on above: Performed By: #### C BC, CMP, GFR, DIFF, MORPH #### [address] [address] LIPon 08-24-2019 Lipase Level 312 U/L Normal 73-393 [facility] ([place]) Comment on above: Performed By: #### C BC, CMP, GFR, DIFF, MORPH #### [place] [address] MGon 08-24-2019 Magnesium [Mass/Vol] 1.9 mg/dL Normal 1.6-2.4 [facility] ([place]) Comment on above: Performed By: #### C BC, CMP, GFR, DIFF, MORPH #### [place] [address] PBNPon 08-24-2019 Natriuretic peptide B (Bld) [Mass/Vol] 369 pg/mL Normal 0-900 [facility] ([place]) Comment on above: Result Comment: NT-p roBNP results of less than 300 pg/mL effectively rules out acute congestive heart failure with 99% negative predictive value. Performed By: #### C BC, CMP, GFR, DIFF, MORPH #### [place] [address] PHOSon 08-24-2019 Phosphate [Mass/Vol] 2.2 mg/dL Low 2.5-4.5 [facility] ([place]) Comment on above: Performed By: #### C BC, CMP, GFR, DIFF, MORPH #### [place] [address] Phosphate [Mass/Vol] 2.0 mg/dL Low 2.5-4.5 [facility] ([place]) Comment on above: Performed By: #### C BC, CMP, GFR, DIFF, MORPH #### [place] [address] PROon 08-24-2019 INR Coag (PPP) [Relative time] 1.2 {INR} Normal [facility] ([place]) Comment on above: Result Comment: [employer] (CHEST, 1992, 102:312S-25S) recommended therapeutic range for oral anticoagulant therapy is: LOW RISK: Prophylaxis of venous thrombosis INR: 2.0-3.0 Treatment of pulmonary embolism 2.0-3.0 Prevention of systemic embolism 2.0-3.0 HIGH RISK: Mechanical prosthetic valves 2.5-3.5 Performed By: #### C BC, CMP, GFR, DIFF, MORPH #### [address] [address] PT Coag (PPP) [Time] 13.8 s Normal 9.0-14.6 [facility] ([place]) Comment on above: Result Comment: Effe ctive 11/04/07, Protime results may be affected by some antibiotics (i.e. Ciprofloxacin, Azithromycin, Bactrim) which may potentiate the action of oral anticoagulants, with further increases in Protime/INR. Performed By: #### C BC, CMP, GFR, DIFF, MORPH #### [address] [address] TRIGon 08-24-2019 Triglyceride [Mass/Vol] 71 mg/dL Normal 3-149 A [facility] ([place]) Comment on above: Result Comment: Trig lyceride Reference Interval: Less than 150 Normal 150-199 Borderline high risk 200-499 High risk 500 or higher Very high risk Performed By: #### C BC, CMP, GFR, DIFF, MORPH #### [address] [address] Triglyceride [Mass/Vol] 74 mg/dL Normal 3-149 A [facility] ([place]) Comment on above: Result Comment: Trig lyceride Reference Interval: Less than 150 Normal 150-199 Borderline high risk 200-499 High risk 500 or higher Very high risk Performed By: #### C BC, CMP, GFR, DIFF, MORPH #### [place] [id number] TROPIon 08-24-2019 Troponin I.cardiac [Mass/Vol] ng/mL Normal 0.000-0.040 [facility] ([place]) Comment on above: Result Comment: Trop onin I reference ranges (12/28/13): 0.00-0.040 ng/mL Negative and non-diagnostic. >0.040 ng/mL Consistent with cardiac damage, increased clinical risk and possibility of myocardial infarction. Serial measurements, a rise & fall in test results, clinical history, appropriate symptoms and/or ECG changes may help assess possibility of PR. *Other non-acute coronary syndrome conditions such as CHF, myocarditis, pulmonary emboli, sepsis and cardiac surgery could result in myocardial damage and increased troponin levels. Performed By: #### C BC, CMP, GFR, DIFF, MORPH #### [address] [address] .GFRon 08-23-2019 GFR Non- >60 Normal [facility] ([place] Comment on above: Result Comment: GFR Population [...] C BC, CMP, GFR, DIFF, MORPH #### [address] [address] GFR >60 Normal [facility] ([place]) Comment on above: Result Comment: GFR Population [...] C BC, CMP, GFR, DIFF, MORPH #### [address] [address] .Manual Diffon 08-23-2019 Bands 2.0 % Normal 0.0-5.0 [facility] ([place]) Comment on above: Performed By: #### C BC, CMP, GFR, DIFF, MORPH #### [address] [address] Basophil %, Manual 0.0 % Normal 0.0-2.5 [facility] ([place]) Comment on above: Performed By: #### C BC, CMP, GFR, DIFF, MORPH #### [address] [address] Basophil, Abs Manual 0.00 10 3/mcL Normal 0.00-0.27 A [facility] ([place] Comment on above: Performed By: #### C BC, CMP, GFR, DIFF, MORPH #### [address] [address] Cells Counted 100 Normal [facility] ([place] Comment on above: Performed By: #### C BC, CMP, GFR, DIFF, MORPH #### [address] [address] Eosinophil %, Manual 0.0 % Normal 0.0-6.0 [facility] ([place]) Comment on above: Performed By: #### C BC, CMP, GFR, DIFF, MORPH #### [address] [address] Eosinophil, Abs Manual 0.00 10 3/mcL Normal 0.00-0.65 [facility] ([place] Comment on above: Performed By: #### C BC, CMP, GFR, DIFF, MORPH #### [address] [address] Lymphocyte %, Manual 9.0 % Low 20.0-40.0 [facility] ([place] Comment on above: Performed By: #### C BC, CMP, GFR, DIFF, MORPH #### [address] [address] Lymphocyte, Abs Manual 2.18 10 3/mcL Normal 0.90-4.32 [facility] ([place]) Comment on above: Performed By: #### C BC, CMP, GFR, DIFF, MORPH #### [address] [address] Monocyte %, Manual 5.0 % Normal 2.0-13.0 [facility] ([place] Comment on above: Performed By: #### C BC, CMP, GFR, DIFF, MORPH #### [place] [address] Monocyte, Abs Manual 1.21 10 3/mcL Normal 0.09-1.40 [facility] ([place] Comment on above: Performed By: #### C BC, CMP, GFR, DIFF, MORPH #### [place] [address] Neutrophil %, Manual 84.0 % High 50.0-75.0 [facility] ([place]) Comment on above: Performed By: #### C BC, CMP, GFR, DIFF, MORPH #### [place] [address] Neutrophil, Abs Manual 18.41 10 3/mcL High 2.25-8.10 [facility] ([place]) Comment on above: Performed By: #### C BC, CMP, GFR, DIFF, MORPH #### [place] [address] .Morphon 08-23-2019 Platelets (Bld) [#/Vol] Normal Normal A [facility] ([place] Comment on above: Performed By: #### C BC, CMP, GFR, DIFF, MORPH #### [place] [address] RBC morphology finding Nom (Bld) Normal Normal [facility] ([place] Comment on above: Performed By: #### C BC, CMP, GFR, DIFF, MORPH #### [place] [address] Benji 08-23-2019 Ethanol Level <10.0 Normal [facility] ([place] Comment on above: Performed By: #### C BC, CMP, GFR, DIFF, MORPH #### [place] [address] APTTon 08-23-2019 aPTT Coag (Bld) [Time] None Normal [facility] ([place] Comment on above: Performed By: #### A PTT, PRO #### [place] [address] aPTT Coag (Bld) [Time] 23.8 s Low 25.0-35.0 [facility] ([place] Comment on above: Result Comment: For Heparin anticoagulation therapy, the recommended therapeutic range is: 54-77 seconds (APTT Correlation with Anti-Xa therapeutic range of 0.3-0.7 units/ml). PLEASE REFERENCE THE PHARMACY PROTOCOL FOR DOSING. Performed By: #### A PTT, PRO #### [place] [address] CBCon 08-23-2019 Erythrocyte distribution width (RBC) [Ratio] 14.0 % Normal 11.5-15.5 [facility] ([place] Comment on above: Performed By: #### C BC, CMP, GFR, DIFF, MORPH #### [place] [address] Hematocrit (Bld) [Volume fraction] 29.7 % Low 34.0-46.0 [facility] ([place] Comment on above: Performed By: #### C BC, CMP, GFR, DIFF, MORPH #### [place] [id number] Hemoglobin (Bld) [Mass/Vol] 10.3 G/dL Low 12.0-16.0 [facility] ([place] Comment on above: Performed By: #### C BC, CMP, GFR, DIFF, MORPH #### [place] [id number] MCH (RBC) [Entitic mass] 33.9 pg High 27.0-33.0 [facility] ([place] Comment on above: Performed By: #### C BC, CMP, GFR, DIFF, MORPH #### [place] [id number] MCHC (RBC) [Mass/Vol] 34.7 G/dL Normal 32.0-36.0 [facility] ([place]) Comment on above: Performed By: #### C BC, CMP, GFR, DIFF, MORPH #### [place] [id number] MCV (RBC) [Entitic vol] 97.7 fL Normal 80.0-99.0 A [facility] ([place]) Comment on above: Performed By: #### C BC, CMP, GFR, DIFF, MORPH #### [place] [address] Platelet mean volume (Bld) [Entitic vol] 8.0 fL Normal 6.6-10.5 [facility] ([place] Comment on above: Performed By: #### C BC, CMP, GFR, DIFF, MORPH #### [place] [id number] Platelets (Bld) [#/Vol] 193 10 3/mcL Normal 150-450 [facility] ([place]) Comment on above: Performed By: #### C BC, CMP, GFR, DIFF, MORPH #### [place] [phone] RBC (Bld) [#/Vol] 3.04 10 6/mcL Low 4.10-5.30 [facility] ([place]) Comment on above: Performed By: #### C BC, CMP, GFR, DIFF, MORPH #### [place] [address] WBC (Bld) [#/Vol] 24.20 10 3/mcL High 4.50-10.80 [facility] ([place]) Comment on above: Performed By: #### C BC, CMP, GFR, DIFF, MORPH #### [place] [address] CMPon 08-23-2019 Albumin/Globulin [Mass ratio] 0.9 {ratio} Normal 0.9-1.6 [facility] ([place] Comment on above: Performed By: #### C BC, CMP, GFR, DIFF, MORPH #### [place] [address] ALP [Catalytic activity/Vol] 71 U/L Normal 38-126 [facility] ([place] Comment on above: Performed By: #### C BC, CMP, GFR, DIFF, MORPH #### [place] [address] Bili Total 1.7 mg/dL High 0.2-1.2 [facility] ([place]) Comment on above: Result Comment: Use of this assay is not recommended for patients undergoing treatment with eltrombopag due to the potential for falsely elevated results. Performed By: #### C BC, CMP, GFR, DIFF, MORPH #### [address] [address] Creatinine [Mass/Vol] 0.40 mg/dL Low 0.50-1.20 [facility] ([place] Comment on above: Performed By: #### C BC, CMP, GFR, DIFF, MORPH #### [address] [address] Globulin (S) [Mass/Vol] 3.5 G/dL Normal 1.5-3.8 [facility] ([place]) Comment on above: Performed By: #### C BC, CMP, GFR, DIFF, MORPH #### [address] [address] Glucose [Mass/Vol] 120 mg/dL High 82-115 [facility] ([place]) Comment on above: Performed By: #### C BC, CMP, GFR, DIFF, MORPH #### [address] [address] Protein [Mass/Vol] 6.8 G/dL Normal 6.0-8.5 [facility] ([place] Comment on above: Performed By: #### C BC, CMP, GFR, DIFF, MORPH #### [address] [address] Urea nitrogen/Creatinine [Mass ratio] 57.5 ratio High 10.0-22.0 [facility] ([place] Comment on above: Performed By: #### C BC, CMP, GFR, DIFF, MORPH #### [address] [address] Albumin [Mass/Vol] 3.3 G/dL Normal 3.2-4.8 [facility] ([place] Comment on above: Performed By: #### C BC, CMP, GFR, DIFF, MORPH #### [address] [address] ALT [Catalytic activity/Vol] 61 U/L High 10-49 [facility] ([place] Comment on above: Performed By: #### C BC, CMP, GFR, DIFF, MORPH #### [address] [address] AST [Catalytic activity/Vol] 41 U/L High 8-34 [facility] ([place] Comment on above: Performed By: #### C BC, CMP, GFR, DIFF, MORPH #### [address] [address] Calcium [Mass/Vol] 7.4 mg/dL Low 8.4-10.1 [facility] ([place] Comment on above: Performed By: #### C BC, CMP, GFR, DIFF, MORPH #### [address] [address] Chloride [Moles/Vol] 94 mmol/L Low 98-110 [facility] ([place]) Comment on above: Performed By: #### C BC, CMP, GFR, DIFF, MORPH #### [address] [address] CO2 [Moles/Vol] 27 mmol/L Normal 22-32 [facility] ([place] Comment on above: Performed By: #### C BC, CMP, GFR, DIFF, MORPH #### [address] [address] Electrolyte Balance 9.0 mEq/L Normal 4.0-15.0 [facility] ([place]) Comment on above: Performed By: #### C BC, CMP, GFR, DIFF, MORPH #### [address] [address] Potassium [Moles/Vol] 2.9 mmol/L Low 3.5-5.0 [facility] ([place] Comment on above: Performed By: #### C BC, CMP, GFR, DIFF, MORPH #### [address] [address] Sodium [Moles/Vol] 130 mmol/L Low 136-145 [facility] ([place] Comment on above: Performed By: #### C BC, CMP, GFR, DIFF, MORPH #### [address] [address] Urea nitrogen [Mass/Vol] 23.0 mg/dL High 8.0-22.0 [facility] ([place] Comment on above: Performed By: #### C BC, CMP, GFR, DIFF, MORPH #### [address] [address] [address] ABD/PELVIS W/ IV CONTRAST ONLYon 08-23-2019 [...] PM Sign Date: 08/23/2019 7:20:52 PM Ordering Provider:[facility]) CT THORAX W/ CONTRASTon 05-0 CT THORAX [...] PM Sign Date: 08/23/2019 7:09:11 PM Ordering Provider:[facility] ([place]) LIPon 08-23-2019 Lipase Level 1226 U/L High 73-393 [facility]) Comment on above: Performed By: #### C BC, CMP, GFR, DIFF, MORPH #### [address] [address] PROon 08-23-2019 INR Coag (PPP) [Relative time] 1.2 {INR} Normal [facility] ([place] Comment on above: Result Comment: [employer] (CHEST, 1991, 102:312S-25S) recommended therapeutic range for oral anticoagulant therapy is: LOW RISK: Prophylaxis of venous thrombosis INR: 2.0-3.0 Treatment of pulmonary embolism 2.0-3.0 Prevention of systemic embolism 2.0-3.0 HIGH RISK: Mechanical prosthetic valves 2.5-3.5 Performed By: #### C BC, CMP, GFR, DIFF, MORPH #### [place] [address] PT Coag (PPP) [Time] 14.5 s Normal 9.0-14.6 [facility] ([place]) Comment on above: Result Comment: Effe ctive 11/04/07, Protime results may be affected by some antibiotics (i.e. Ciprofloxacin, Azithromycin, Bactrim) which may potentiate the action of oral anticoagulants, with further increase in Protime/INR. Performed By: #### C BC, CMP, GFR, DIFF, MORPH #### [place] [address] RESPIDon 08-23-2019 Adenovirus Not Detected Normal Not Detected [facility] ([place] Comment on above: Order Comment: Order added by [email or web address] Performed By: #### C BC, CMP, GFR, DIFF, MORPH #### [place] [address] Bordetella Parapertussis Not Detected Normal Not Detected [facility] ([place] Comment on above: Order Comment: Order added by [email or web address] Performed By: #### C BC, CMP, GFR, DIFF, MORPH #### [place] [address] Bordetella Pertussis Not Detected Normal Not Detected [facility] ([place] Comment on above: Order Comment: Order added by [email or web address] Performed By: #### C BC, CMP, GFR, DIFF, MORPH #### [place] [address] Chlamydophila pneumoniae Not Detected Normal Not Detected [facility] ([place]) Comment on above: Order Comment: Order added by [email or web address] Performed By: #### C BC, CMP, GFR, DIFF, MORPH #### [place] [address] Coronavirus 229E (Not COVID-19) Not Detected Normal Not Detected [facility] ([place]) Comment on above: Order Comment: Order added by [email or web address] Performed By: #### C BC, CMP, GFR, DIFF, MORPH #### [place] [address] Coronavirus HKU1 (Not COVID-19) Not Detected Normal Not Detected [facility] ([place]) Comment on above: Order Comment: Order added by [email or web address] Performed By: #### C BC, CMP, GFR, DIFF, MORPH #### [place] [address] Coronavirus NL63 (Not COVID-19) Not Detected Normal Not Detected [facility] ([place]) Comment on above: Order Comment: Order added by [email or web address] Performed By: #### C BC, CMP, GFR, DIFF, MORPH #### [place] [address] Coronavirus OC43 (Not COVID-19) Not Detected Normal Not Detected [facility] ([place] Comment on above: Order Comment: Order added by [email or web address] Performed By: #### C BC, CMP, GFR, DIFF, MORPH #### [place] [address] Human Metapneumovirus Not Detected Normal Not Detected [facility] ([place] Comment on above: Order Comment: Order added by [email or web address] Performed By: #### C BC, CMP, GFR, DIFF, MORPH #### [place] [address] Influenza A Not Detected Normal Not Detected [facility] ([place] Comment on above: Order Comment: Order added by [email or web address] Performed By: #### C BC, CMP, GFR, DIFF, MORPH #### [place] [id number] Influenza B Not Detected Normal Not Detected [facility] ([place] Comment on above: Order Comment: Order added by [email or web address] Performed By: #### C BC, CMP, GFR, DIFF, MORPH #### [place] [address] Mycoplasma pneumoniae Not Detected Normal Not Detected [facility] ([place] Comment on above: Order Comment: Order added by [email or web address] Performed By: #### C BC, CMP, GFR, DIFF, MORPH #### [place] [address] Parainfluenza 1 Not Detected Normal Not Detected [facility] ([place] Comment on above: Order Comment: Order added by [email or web address] Performed By: #### C BC, CMP, GFR, DIFF, MORPH #### [place] [address] Parainfluenza 2 Not Detected Normal Not Detected [facility] ([place] Comment on above: Order Comment: Order added by [email or web address] Performed By: #### C BC, CMP, GFR, DIFF, MORPH #### [place] [address] Parainfluenza 3 Not Detected Normal Not Detected [facility] ([place] Comment on above: Order Comment: Order added by [email or web address] Performed By: #### C BC, CMP, GFR, DIFF, MORPH #### [place] [id number] Parainfluenza 4 Not Detected Normal Not Detected [facility] ([place] Comment on above: Order Comment: Order added by [email or web address] Performed By: #### C BC, CMP, GFR, DIFF, MORPH #### [address] [address] Respiratory Syncytial Virus Not Detected Normal Not Detected [facility] ([place] Comment on above: Order Comment: Order added by [email or web address] Performed By: #### C BC, CMP, GFR, DIFF, MORPH #### [address] [address] Rhinovirus/Enterovirus Not Detected Normal Not Detected [facility] ([place] Comment on above: Order Comment: Order added by [email or web address] Performed By: #### C BC, CMP, GFR, DIFF, MORPH #### [place] [address] RFLUon 08-23-2019 RFLU . MICRO - Microbiology [...] Locations *1: This test was performed at: [facility], [address] [place] [address], [address] [place] [address] ([place]) Comment on above: Performed By: #### C BC, CMP, GFR, DIFF, MORPH #### [address] [address] XR CHEST 1 VIEWon 08-23-2019 XR CHEST [...] PM Sign Date: 08/23/2019 7:23:50 PM Ordering Provider:[facility]) XR PELVIS 1 OR 2 VIEWSon XR [...] PM Sign Date: 08/23/2019 7:24:38 PM Ordering Provider:[facility] ([place]) Culture, urine Bacteria identified Cx Nom (U) Staphylococcus hominis hominis [facility] Work Phone: Bacteria identified Cx Nom (U) Escherichia coli [facility] Work Phone: Bacteria identified Cx Nom (U) Enterococcus faecalis [facility] Work Phone: Vital Signs Date Time Vital Sign Value Performing Clinician Facility 09-26-2024 15:33-0400 Body temperature 97.8 [degF] Dr. Erica Richardson DO Work Phone: [facility] 09-26-2024 15:33-0400 Diastolic blood pressure 74 mm[Hg] Dr. Erica Richardson DO Work Phone: [facility] 09-26-2024 15:33-0400 Heart rate 67 /min Dr. Erica Richardson DO Work Phone: [facility] 09-26-2024 15:33-0400 Respiratory rate 15 /min Dr. Ercia Richardson DO Work Phone: [facility] 09-26-2024 15:33-0400 SaO2% (BldA) [Mass fraction] 99 % Dr. Erica Richardson DO Work Phone: [facility] 09-26-2024 15:33-0400 Systolic blood pressure 138 mm[Hg] Dr. Erica Richardson DO Work Phone: [facility] 09-26-2024 13:17-0400 Body height 172.[address] Erica Richardson DO Work Phone: [facility] 09-26-2024 13:17-0400 Body mass index (BMI) [Ratio] 25.4 kg/m2 Dr. Erica Richardson DO Work Phone: [facility] 09-26-2024 13:17-0400 Body weight 75.[address] Erica Richardson DO Work Phone: [facility] 09-25-2024 15:00-0400 Body temperature 98.8 [degF] Dr. Erica Richardson DO Work Phone: [facility] 09-25-2024 15:00-0400 Diastolic blood pressure 72 mm[Hg] Dr. Erica Richardson DO Work Phone: [facility] 06-06-2025 15:00-0400 Heart rate 82 /min Dr. Erica Richardson DO Work Phone: [facility] 09-25-2024 15:00-0400 Respiratory rate 16 /min Dr. Erica Richardson DO Work Phone: [facility] 09-25-2024 15:00-0400 SaO2% (BldA) [Mass fraction] 94 % Dr. Erica Richardson DO Work Phone: [facility] 09-25-2024 15:00-0400 Systolic blood pressure 123 mm[Hg] Dr. Erica Richardson DO Work Phone: [facility] 09-25-2024 03:34-0400 Body mass index (BMI) [Ratio] 25.2 kg/m2 Dr. Erica Richardson DO Work Phone: [facility] 09-25-2024 03:34-0400 Body weight 75.[address] Erica Richardson DO Work Phone: [facility] 09-23-2024 09:30-0400 Body height 172.[address] Erica Richardson DO Work Phone: [facility] 09-22-2024 23:00-0400 Body temperature 98.1 [degF] Dr. Erica Richardson DO Work Phone: [facility] 09-22-2024 23:00-0400 Diastolic blood pressure 65 mm[Hg] Dr. Erica Richardson DO Work Phone: [facility] 09-22-2024 23:00-0400 Heart rate 70 /min Dr. Erica Richardson DO Work Phone: [facility] 09-22-2024 23:00-0400 Respiratory rate 16 /min Dr. Erica Richardson DO Work Phone: [facility] 09-22-2024 23:00-0400 SaO2% (BldA) [Mass fraction] 95 % Dr. Erica Richardson DO Work Phone: [facility] 09-22-2024 23:00-0400 Systolic blood pressure 134 mm[Hg] Dr. Erica Richardson DO Work Phone: [facility] 09-22-2024 22:00-0400 Inhaled oxygen flow rate 1 L/min Dr. Erica Richardson DO Work Phone: [facility] 09-22-2024 20:06-0400 Body height 167.[address] Erica Richardson DO Work Phone: [facility] 09-22-2024 20:06-0400 Body mass index (BMI) [Ratio] 28.8 kg/m2 Dr. Erica Richardson DO Work Phone: [facility] 09-22-2024 20:06-0400 Body weight 81.[address] Erica Richardson DO Work Phone: [facility] 07-04-2024 16:37-0400 Diastolic blood pressure 81 mm[Hg] Dr. Erica Richardson DO Work Phone: [facility] 07-04-2024 16:37-0400 Heart rate 77 /min Dr. Erica Richardson DO Work Phone: [facility] 07-04-2024 16:37-0400 Respiratory rate 16 /min Dr. Erica Richardson DO Work Phone: [facility] 07-04-2024 16:37-0400 SaO2% (BldA) [Mass fraction] 96 % Dr. Erica Richardson DO Work Phone: [facility] 07-04-2024 16:37-0400 Systolic blood pressure 167 mm[Hg] Dr. Erica Richardson DO Work Phone: [facility] 07-04-2024 12:57-0400 Body height 167.[address] Erica Richardson DO Work Phone: [facility] 07-04-2024 12:57-0400 Body mass index (BMI) [Ratio] 27.3 kg/m2 Dr. Erica Richardson DO Work Phone: [facility] 07-04-2024 12:57-0400 Body temperature 98 [degF] Dr. Erica Richardson DO Work Phone: [facility] 07-04-2024 12:57-0400 Body weight 76.[address] Erica Richardson DO Work Phone: [facility] 08-20-2023 17:53-0400 Body temperature 98 [degF] Dr. Erica Richardson Work Phone: [facility] 08-20-2023 17:53-0400 Diastolic blood pressure 80 mm[Hg] Dr. Erica Richardson Work Phone: [facility] 08-20-2023 17:53-0400 Heart rate 80 /min Dr. Erica Richardson Work Phone: [facility] 08-20-2023 17:53-0400 Respiratory rate 16 /min Dr. Erica Richardson Work Phone: [facility] 08-20-2023 17:53-0400 SaO2% (BldA) [Mass fraction] 97 % Dr. Erica Richardson Work Phone: [facility] 08-20-2023 17:53-0400 Systolic blood pressure 158 mm[Hg] Dr. Erica Richardson Work Phone: [facility] 08-20-2023 12:24-0400 Body height 165.[address] Erica Richardson Work Phone: [facility] 08-20-2023 12:24-0400 Body mass index (BMI) [Ratio] 27.2 kg/m2 Dr. Erica Richardson Work Phone: [facility] 08-20-2023 12:24-0400 Body weight 74.[address] Erica Richardson Work Phone: [facility] 05-21-2023 11:05-0500 Body temperature 98.4 [degF] Dr. Erica Richardson Work Phone: [facility] 05-21-2023 11:05-0500 Diastolic blood pressure 60 mm[Hg] Dr. Erica Richardson Work Phone: [facility] 05-21-2023 11:05-0500 Heart rate 61 /min Dr. Erica Richardson Work Phone: [facility] 05-21-2023 11:05-0500 Respiratory rate 18 /min Dr. Erica Richardson Work Phone: [facility] 05-21-2023 11:05-0500 SaO2% (BldA) [Mass fraction] 94 % Dr. Erica Richardson Work Phone: [facility] 05-21-2023 11:05-0500 Systolic blood pressure 125 mm[Hg] Dr. Erica Richardson Work Phone: [facility] 05-21-2023 06:00-0500 Body mass index (BMI) [Ratio] 26.6 kg/m2 Dr. Erica Richardson Work Phone: [facility] 05-21-2023 06:00-0500 Body weight 74.[address] Erica Richardson Work Phone: [facility] 05-19-2023 09:16-0500 Inhaled oxygen concentration 2 % Dr. Erica Richardson Work Phone: [facility] 05-19-2023 08:00-0500 Inhaled oxygen flow rate 2 L/min Dr. Erica Richardson Work Phone: [facility] 05-19-2023 03:16-0500 Body height 167.[address] Erica Richardson Work Phone: [facility] 05-19-2023 02:23-0500 Body temperature 98.7 [degF] Dr. Erica Richardson Work Phone: [facility] 05-19-2023 02:23-0500 Diastolic blood pressure 57 mm[Hg] Dr. Erica Richardson Work Phone: [facility] 05-19-2023 02:23-0500 Heart rate 87 /min Dr. Erica Richardson Work Phone: [facility] 05-19-2023 02:23-0500 Respiratory rate 16 /min Dr. Erica Richardson Work Phone: [facility] 05-19-2023 02:23-0500 SaO2% (BldA) [Mass fraction] 95 % Dr. Erica Richardson Work Phone: [facility] 05-19-2023 02:23-0500 Systolic blood pressure 99 mm[Hg] Dr. Erica Richardson Work Phone: [facility] 05-19-2023 01:17-0500 Inhaled oxygen flow rate 3 L/min Dr. Erica Richardson Work Phone: [facility] 05-18-2023 23:28-0500 Body height 167.[address] Erica Richardson Work Phone: [facility] 05-18-2023 23:28-0500 Body mass index (BMI) [Ratio] 25.9 kg/m2 Dr. Erica Richardson Work Phone: [facility] 05-18-2023 23:28-0500 Body weight [address] Erica Richardson Work Phone: [facility] 11-23-2022 13:00-0400 Body temperature 97.8 [degF] Dr. Erica Richardson Work Phone: [facility] 11-23-2022 13:00-0400 Diastolic blood pressure 70 mm[Hg] Dr. Erica Richardson Work Phone: [facility] 11-23-2022 13:00-0400 Heart rate 98 /min Dr. Erica Richardson Work Phone: [facility] 11-23-2022 13:00-0400 Respiratory rate 16 /min Dr. Erica Richardson Work Phone: [facility] 11-23-2022 13:00-0400 SaO2% (BldA) [Mass fraction] 94 % Dr. Erica Richardson Work Phone: [facility] 11-23-2022 13:00-0400 Systolic blood pressure 139 mm[Hg] Dr. Erica Richardson Work Phone: [facility] 11-23-2022 06:51-0400 Inhaled oxygen flow rate 2 L/min Dr. Erica Richardson Work Phone: [facility] 11-22-2022 18:25-0400 Body height 167.[address] Erica Richardson Work Phone: [facility] 11-22-2022 18:25-0400 Body mass index (BMI) [Ratio] 24.2 kg/m2 Dr. Erica Richardson Work Phone: [facility] 11-22-2022 18:25-0400 Body weight 68.[address] Erica Richardson Work Phone: [facility] 11-22-2022 17:49-0400 Body temperature 98 [degF] [facility] 11-22-2022 17:49-0400 Diastolic blood pressure 79 mm[Hg] [facility] 11-22-2022 17:49-0400 Heart rate 72 /min [facility] 11-22-2022 17:49-0400 Respiratory rate 18 /min [facility] 11-22-2022 17:49-0400 SaO2% (BldA) [Mass fraction] 93 % [facility] 11-22-2022 17:49-0400 Systolic blood pressure 151 mm[Hg] [facility] 11-22-2022 12:42-0400 Body height 167.64 cm [facility] 11-22-2022 12:42-0400 Body mass index (BMI) [Ratio] 24.2 kg/m2 [facility] 11-22-2022 12:42-0400 Body weight 68.03 kg [facility] 11-22-2022 11:47-0400 Body temperature 99.61 [degF] [facility] AUTOMOTIVE TIRE TECHNICIAN.SNAILER Work Phone: [facility] 11-22-2022 11:47-0400 Body weight 68.04 kg [facility] AUTOMOTIVE TIRE TECHNICIAN.SNAILER Work Phone: [facility] 11-22-2022 11:47-0400 Diastolic blood pressure 64 mm[Hg] [facility] AUTOMOTIVE TIRE TECHNICIAN.SNAILER Work Phone: [facility] 11-22-2022 11:47-0400 Heart rate 85 /min [facility] AUTOMOTIVE TIRE TECHNICIAN.SNAILER Work Phone: [facility] 11-22-2022 11:47-0400 Respiratory rate 18 /min [facility] AUTOMOTIVE TIRE TECHNICIAN.SNAILER Work Phone: [facility] 11-22-2022 11:47-0400 SaO2% (BldA) [Mass fraction] 93 % [facility] AUTOMOTIVE TIRE TECHNICIAN.SNAILER Work Phone: [facility] 11-22-2022 11:47-0400 Systolic blood pressure 110 mm[Hg] [facility] AUTOMOTIVE TIRE TECHNICIAN.SNAILER Work Phone: [facility] 07-02-2022 21:05-0400 Diastolic blood pressure 80 mm[Hg] Dr. Erica Richardson Work Phone: [facility] 07-02-2022 21:05-0400 Heart rate 79 /min Dr. Erica Richardson Work Phone: [facility] 07-02-2022 21:05-0400 Respiratory rate 16 /min Dr. Erica Richardson Work Phone: [facility] 07-02-2022 21:05-0400 SaO2% (BldA) [Mass fraction] 97 % Dr. Erica Richardson Work Phone: [facility] 07-02-2022 21:05-0400 Systolic blood pressure 130 mm[Hg] Dr. Erica Richardson Work Phone: [facility] 07-02-2022 16:14-0400 Body height 167.[address] Erica Richardson Work Phone: [facility] 07-02-2022 16:14-0400 Body mass index (BMI) [Ratio] 21.7 kg/m2 Dr. Erica Richardson Work Phone: [facility] 07-02-2022 16:14-0400 Body temperature 97.3 [degF] Dr. Erica Richardson Work Phone: [facility] 07-02-2022 16:14-0400 Body weight 61.[address] Erica Richardson Work Phone: [facility] 03-09-2022 08:51-0500 Body height 167.[address] Erica Richardson Work Phone: [facility] 01-10-2022 13:39-0400 Diastolic blood pressure 81 mm[Hg] Dr. Erica Richardson Work Phone: [facility] Work Phone: 01-10-2022 13:39-0400 Heart rate 83 /min Dr. Erica Richardson Work Phone: [facility] Work Phone: 01-10-2022 13:39-0400 Respiratory rate 19 /min Dr. Erica Richardson Work Phone: [facility] Work Phone: 01-10-2022 13:39-0400 SaO2% (BldA) [Mass fraction] 95 % Dr. Erica Richardson Work Phone: [facility] Work Phone: 01-10-2022 13:39-0400 Systolic blood pressure 149 mm[Hg] Dr. Erica Richardson Work Phone: [facility] Work Phone: 01-10-2022 11:44-0400 Body height 167.[address] Erica Richardson Work Phone: [facility] Work Phone: 01-10-2022 11:44-0400 Body mass index (BMI) [Ratio] 22.7 kg/m2 Dr. Erica Richardson Work Phone: [facility] Work Phone: 01-10-2022 11:44-0400 Body temperature 98.1 [degF] Dr. Erica Richardson Work Phone: [facility] Work Phone: 01-10-2022 11:44-0400 Body weight 63.[address] Erica Richardson Work Phone: [facility] Work Phone: 01-09-2022 13:26-0400 Body height 167.6 cm All Tsang MD Work Phone: [facility] 01-09-2022 13:26-0400 Body weight 56.7 kg All Tsang MD Work Phone: [facility] 01-09-2022 13:26-0400 Diastolic blood pressure 64 mm[Hg] All Tsang MD Work Phone: [facility] 01-09-2022 13:26-0400 Heart rate 66 /min All Tsang MD Work Phone: [facility] 01-09-2022 13:26-0400 SaO2% (BldA) [Mass fraction] 97 % All Tsang MD Work Phone: [facility] 01-09-2022 13:26-0400 Systolic blood pressure 110 mm[Hg] All Tsang MD Work Phone: [facility] 11-02-2021 13:06-0400 Body height 167.6 cm Acute 359 Work Phone: [facility] 11-02-2021 13:06-0400 Body weight 63.96 kg Acute 359 Work Phone: [facility] 11-02-2021 13:06-0400 Diastolic blood pressure 74 mm[Hg] Acute 359 Work Phone: [facility] 11-02-2021 13:06-0400 Heart rate 86 /min Acute 359 Work Phone: [facility] 11-02-2021 13:06-0400 Respiratory rate 20 /min Acute 359 Work Phone: [facility] 11-02-2021 13:06-0400 SaO2% (BldA) [Mass fraction] 95 % [facility] 359 Work Phone: [facility] 11-02-2021 13:06-0400 Systolic blood pressure 112 mm[Hg] Acute 359 Work Phone: [facility] 10-07-2021 01:00-0400 Diastolic blood pressure 81 mm[Hg] Dr. Erica Richardson Work Phone: [facility] Work Phone: 10-07-2021 01:00-0400 Heart rate 85 /min Dr. Erica Richardson Work Phone: [facility] Work Phone: 10-07-2021 01:00-0400 Inhaled oxygen flow rate 2 L/min Dr. Erica Richardson Work Phone: [facility] Work Phone: 10-07-2021 01:00-0400 Respiratory rate 14 /min Dr. Erica Richardson Work Phone: [facility] Work Phone: 10-07-2021 01:00-0400 SaO2% (BldA) [Mass fraction] 100 % Dr. Erica Richardson Work Phone: [facility] Work Phone: 10-07-2021 01:00-0400 Systolic blood pressure 138 mm[Hg] Dr. Erica Richardson Work Phone: [facility] Work Phone: 10-06-2021 21:19-0400 Body height 167.[address] Erica Richardson Work Phone: [facility] Work Phone: 10-06-2021 21:19-0400 Body mass index (BMI) [Ratio] 20.9 kg/m2 Dr. Erica Richardson Work Phone: [facility] Work Phone: 10-06-2021 21:19-0400 Body temperature 96.9 [degF] Dr. Erica Richardson Work Phone: [facility] Work Phone: 10-06-2021 21:19-0400 Body weight 58.[address] Erica Richardson Work Phone: [facility] Work Phone: 08-07-2021 10:54-0400 Body mass index (BMI) [Ratio] 22.9 kg/m2 Dr. Erica Richardson Work Phone: [facility] Work Phone: 08-07-2021 10:54-0400 Body temperature 97.3 [degF] Dr. Erica Richardson Work Phone: [facility] Work Phone: 08-07-2021 10:54-0400 Body weight 62.[address] Erica Richardson Work Phone: [facility] Work Phone: 08-07-2021 10:54-0400 Diastolic blood pressure 76 mm[Hg] Dr. Erica Richardson Work Phone: [facility] Work Phone: 08-07-2021 10:54-0400 Heart rate 91 /min Dr. Erica Richardson Work Phone: [facility] Work Phone: 08-07-2021 10:54-0400 Respiratory rate 18 /min Dr. Erica Richardson Work Phone: [facility] Work Phone: 08-07-2021 10:54-0400 SaO2% (BldA) [Mass fraction] 97 % Dr. Erica Richardson Work Phone: [facility] Work Phone: 08-07-2021 10:54-0400 Systolic blood pressure 120 mm[Hg] Dr. Erica Richardson Work Phone: [facility] Work Phone: 08-07-2021 10:54-0400 Body height 165.[address] Erica Richardson Work Phone: [facility] Work Phone: 08-07-2021 10:54-0400 Body mass index (BMI) [Ratio] 22.9 kg/m2 Dr. Erica Richardson Work Phone: [facility] Work Phone: 08-07-2021 10:54-0400 Body temperature 97.3 [degF] Dr. Erica Richardson Work Phone: [facility] Work Phone: 08-07-2021 10:54-0400 Body weight 62.[address] Erica Richardson Work Phone: [facility] Work Phone: 08-07-2021 10:54-0400 Diastolic blood pressure 76 mm[Hg] Dr. Erica Richardson Work Phone: [facility] Work Phone: 08-07-2021 10:54-0400 Heart rate 91 /min Dr. Erica Richardson Work Phone: [facility] Work Phone: 08-07-2021 10:54-0400 Respiratory rate 18 /min Dr. Erica Richardson Work Phone: [facility] Work Phone: 08-07-2021 10:54-0400 SaO2% (BldA) [Mass fraction] 97 % Dr. Erica Richardson Work Phone: [facility] Work Phone: 08-07-2021 10:54-0400 Systolic blood pressure 120 mm[Hg] Dr. Erica Richardson Work Phone: [facility] Work Phone: 07-12-2021 11:59-0400 Body temperature 100.29 [degF] Nicho Johnson MD Work Phone: [facility] 07-12-2021 11:59-0400 Body weight 60.6 kg Nicho Johnson MD Work Phone: [facility] 07-12-2021 11:59-0400 Diastolic blood pressure 92 mm[Hg] Nicho Johnson MD Work Phone: [facility] 07-12-2021 11:59-0400 Heart rate 97 /min Nicho Johnson MD Work Phone: [facility] 07-12-2021 11:59-0400 Respiratory rate 21 /min Nicho Johnson MD Work Phone: [facility] 07-12-2021 11:59-0400 SaO2% (BldA) [Mass fraction] 98 % Nicho Johnson MD Work Phone: [facility] 07-12-2021 11:59-0400 Systolic blood pressure 152 mm[Hg] Nicho Johnson MD Work Phone: [facility] 06-11-2021 15:56-0500 Diastolic blood pressure 83 mm[Hg] Dr. Erica Richardson Work Phone: [facility] Work Phone: 06-11-2021 15:56-0500 Heart rate 89 /min Dr. Erica Richardson Work Phone: [facility] Work Phone: 06-11-2021 15:56-0500 Respiratory rate 16 /min Dr. Erica Richardson Work Phone: [facility] Work Phone: 06-11-2021 15:56-0500 SaO2% (BldA) [Mass fraction] 97 % Dr. Erica Richardson Work Phone: [facility] Work Phone: 06-11-2021 15:56-0500 Systolic blood pressure 149 mm[Hg] Dr. Erica Richardson Work Phone: [facility] Work Phone: 06-11-2021 14:56-0500 Diastolic blood pressure 83 mm[Hg] Dr. Erica Richardson Work Phone: [facility] Work Phone: 06-11-2021 14:56-0500 Heart rate 89 /min Dr. Erica Richardson Work Phone: [facility] Work Phone: 06-11-2021 14:56-0500 Respiratory rate 16 /min Dr. Erica Richardson Work Phone: [facility] Work Phone: 06-11-2021 14:56-0500 SaO2% (BldA) [Mass fraction] 97 % Dr. Erica Richardson Work Phone: [facility] Work Phone: 06-11-2021 14:56-0500 Systolic blood pressure 149 mm[Hg] Dr. Erica Richardson Work Phone: [facility] Work Phone: 06-11-2021 11:01-0500 Body mass index (BMI) [Ratio] 23.5 kg/m2 Dr. Erica Richardson Work Phone: [facility] Work Phone: 06-11-2021 11:01-0500 Body temperature 98.3 [degF] Dr. Erica Richardson Work Phone: [facility] Work Phone: 06-11-2021 11:01-0500 Body weight 62.[address] Erica Richardson Work Phone: [facility] Work Phone: 06-11-2021 10:01-0500 Body mass index (BMI) [Ratio] 23.5 kg/m2 Dr. Erica Richardson Work Phone: [facility] Work Phone: 06-11-2021 10:01-0500 Body temperature 98.3 [degF] Dr. Erica Richardson Work Phone: [facility] Work Phone: 06-11-2021 10:01-0500 Body weight 62.[address] Erica Richardson Work Phone: [facility] Work Phone: 05-21-2021 13:39-0500 Body mass index (BMI) [Ratio] 23.7 kg/m2 Dr. Erica Richardson Work Phone: [facility] Work Phone: 05-21-2021 13:39-0500 Body temperature 98 [degF] Dr. Erica Richardson Work Phone: [facility] Work Phone: 05-21-2021 13:39-0500 Body weight 66.[address] Erica Richardson Work Phone: [facility] Work Phone: 05-21-2021 13:39-0500 Diastolic blood pressure 69 mm[Hg] Dr. Erica Richardson Work Phone: [facility] Work Phone: 05-21-2021 13:39-0500 Heart rate 87 /min Dr. Erica Richardson Work Phone: [facility] Work Phone: 05-21-2021 13:39-0500 Respiratory rate 18 /min Dr. Erica Richardson Work Phone: [facility] Work Phone: 05-21-2021 13:39-0500 SaO2% (BldA) [Mass fraction] 100 % Dr. Erica Richardson Work Phone: [facility] Work Phone: 05-21-2021 13:39-0500 Systolic blood pressure 150 mm[Hg] Dr. Erica Richardson Work Phone: [facility] Work Phone: 04-17-2020 11:00-0500 BP Diastolic 91 mm[Hg] [place], [place] 04-17-2020 11:00-0500 BP Systolic 158 mm[Hg] [place], [place] 04-17-2020 11:00-0500 Pulse (Heart Rate) 87 /min [place], [place] 04-17-2020 11:00-0500 Pulse Oximetry 95 % [place], [place] 04-17-2020 11:00-0500 Respiratory Rate 18 /min [place], [place] 04-17-2020 08:00-0500 Body Temperature 98.4 [degF] [place], [place] Encounters Encounter Date Encounter Type Care Provider Facility Start: 11-16-2024 ambulatory Sheyla Son ty:[facility] Start: 11-13-2024 End: 11-13-[address] Erica Richardson DO Work Phone: -Laboratory Specimen Start: 11-13-2024 End: 11-13-[address] Erica Richardson DO -Laboratory Specimen Work Phone: Start: 11-13-2024 End: 11-13-2024 ambulatory Erica Richardson Facility:[facility] Start: 10-26-2024 ambulatory Sheyla Grier cility:[facility] Start: 10-26-2024 Registered Referred Sheyla Lunsford Start: 10-20-2024 Non-patient / Non-visit Dr. Shireen he MD -[facility] Work Phone: Start: 10-19-2024 ambulatory Franciscodorian SMITH Cherrie cility:[facility] Start: 10-19-2024 Registered Referred Sheyla Lunsford Start: 10-12-2024 End: 10-12-2024 [facility] Start: 10-12-2024 End: 10-12-[address] Erica Richardson DO Work Phone: [facility] Start: 10-12-2024 Registered Referred Sheyla Lunsford Start: 10-05-2024 ambulatory Sheyla Grier cility:[facility] Start: 10-05-2024 Registered Referred Sheyla Lunsford Start: 10-01-2024 End: 10-01-[address] Erica Richardson DO Work Phone: [facility] Start: 10-01-2024 End: 10-01-2024 [facility] Start: 09-30-2024 End: 09-30-[address] Erica Richardson DO Work Phone: [facility] Start: 09-30-2024 End: 09-30-2024 Patient encounter procedure Aiden HUFFMANC -[facility] Work Phone: Start: 09-29-2024 End: 09-29-[address] Erica Richardson DO Work Phone: [facility] Start: 09-29-2024 End: 09-29-[address] Sheyla Mcgee MD -[facility] Work Phone: Start: 09-28-2024 End: 09-28-2024 Patient encounter procedure Aiden LUIS -[facility] Work Phone: Start: 09-28-2024 End: 09-28-[address] Erica Richardson DO Work Phone: [facility] Start: 09-28-2024 Registered Referred [facility] Start: 09-26-2024 End: 09-26-2024 Emergency department patient visit Dr. Erica Richardson DO Work Phone: -Emergency Department Work Phone: Start: 09-25-2024 Non-patient / Non-visit Dr. Froy anglin [facility] Work Phone: Start: 09-24-2024 Non-patient / Non-visit Dr. Froy anglin [facility] Work Phone: Start: 09-23-2024 Non-patient / Non-visit Dr. Froy anglin [facility] Work Phone: Start: 09-22-2024 ambulatory [facility] Facility :[facility] [place] Start: 09-22-2024 End: 09-25-2024 Evaluation and management of inpatient Dr. Froy Velázquez DO -[facility] Work Phone: Start: 09-11-2024 End: 09-11-[address] Erica Richardson DO Work Phone: [facility] Work Phone: Start: 09-11-2024 End: 09-11-[address] Erica Richardson DO -Laboratory [place] Work Phone: Start: 09-11-2024 End: 09-11-2024 [facility] Start: 08-21-2024 End: 08-21-[address] Erica Richardson DO Work Phone: [facility] Work Phone: Start: 08-21-2024 End: 08-21-[address] Erica Richardson DO -Home Health Lab Start: 08-21-2024 End: 08-21-2024 [facility] Start: 08-05-2024 End: 08-05-[address] Erica Richardson DO -Laboratory, Specimen Work Phone: Start: 08-05-2024 End: 08-05-2024 ambulatory Erica Richardson Facility:[facility] Start: 07-04-2024 End: 07-04-2024 Emergency department patient visit Dr. Erica Richardson DO Work Phone: -Emergency Department Work Phone: Start: 06-04-2024 End: 06-04-[address] Erica Richardson DO -Radiology, [place] Work Phone: Start: 06-04-2024 End: 06-04-2024 ambulatory Erica Richardson Facility:[facility] Start: 05-27-2024 End: 05-27-[address] Erica Richardson DO -Laboratory, [facility] Start: 05-27-2024 End: 05-27-2024 [facility]ulatory [facility] Start: 04-24-2024 End: 04-24-[address] Erica Richardson DO -Laboratory, Specimen Work Phone: Start: 04-24-2024 End: 04-24-2024 [facility]ulatory [facility] Start: 03-02-2024 End: 03-02-2024 Emergency department patient visit Cheikh Ybarra Facility:[facility] Start: 12-18-2023 End: 12-18-2023 Emergency department patient visit Jorge Cardona Facility:[facility] Start: 12-12-2023 End: 12-12-2023 ambulatory Erica Richardson Facility:[facility] Start: 11-04-2023 End: 11-04-2023 ambulatory [facility] [facility] Work Phone: Hematology/Oncology Comment on above: History of breast ca ncer (Primary Dx) Start: 08-20-2023 End: 08-20-2023 Emergency department patient visit Dr. Erica Richardson Work Phone: [facility] Work Phone: Start: 08-05-2023 End: 08-05-2023 ambulatory [facility] [facility] Work Phone: Hematology/Oncology Comment on above: History of breast ca ncer (Primary Dx) Start: 05-21-2023 Non-patient / Non-visit Dr. Anny Richardson Work Phone: [facility] Work Phone: Start: 05-20-2023 Non-patient / Non-visit Dr. Anny Richardson Work Phone: [facility] Work Phone: Start: 05-19-2023 End: 05-21-2023 Evaluation and management of inpatient Dr. Erica Richardson Work Phone: [facility] Work Phone: Start: 05-19-2023 Non-patient / Non-visit Dr. Anny Richardson Work Phone: [facility] Work Phone: Start: 05-09-2023 End: 05-09-2023 ambulatory ERICA RICHARDSON Facility:[facility] Start: 04-02-2023 End: 04-02-2023 ambulatory ERICA RICHARDSON Facility:[facility] Start: 11-23-2022 Telephone encounter Wu rico AUTOMOTIVE TIRE TECHNICIAN.SNAILER Work Phone: [facility] Comment on above: Results Start: 11-22-2022 Non-patient / Non-visit Dr. Anny Richardson Work Phone: [facility] Work Phone: Start: 11-22-2022 End: 11-23-2022 Evaluation and management of inpatient [facility] Work Phone: Start: 11-22-2022 End: 11-23-[address] Erica Richardson Work Phone: [facility] Work Phone: Start: 11-22-2022 End: 11-22-2022 Subsequent hospital visit by physician [facility] Work Phone: Radiology Comment on above: Acute cough [R05.1] Start: 11-22-2022 End: 11-22-2022 ambulatory ERICA RICHARDSON Facility:[facility] Start: 11-22-2022 End: 11-22-2022 Patient encounter procedure Eliel Blount APRN.SNAILER Work Phone: [facility] Comment on above: Acute cough (Primary Dx); SOB (shortness of breath); Suspected COVID-19 virus infection Start: 11-14-2022 End: 11-14-2022 [facility] Start: 09-13-2022 End: 09-13-[address] Erica Richardson Work Phone: [facility] Work Phone: Start: 09-13-2022 End: 09-13-[address] Erica Richardson [facility] Start: 08-10-2022 End: 08-10-2022 ambulatory Lab/[place] [facility] Work Phone: Hematology/Oncology Comment on above: Malignant neoplasm o f left breast in female, estrogen receptor positive, unspecified site of breast (HCC) (Primary Dx) Start: 07-13-2022 End: 07-13-2022 ambulatory [facility]/[place] [facility] Work Phone: Hematology/Oncology Comment on above: Malignant neoplasm o f left breast in female, estrogen receptor positive, unspecified site of breast (HCC) (Primary Dx) Start: 07-02-2022 End: 07-02-2022 Emergency department patient visit Dr. Erica Richardson Work Phone: [facility] Start: 06-26-2022 End: 06-26-[address] Erica Richardson Work Phone: [facility] Work Phone: Start: 06-26-2022 End: 06-26-[address] Erica Richardson Work Phone: [facility] Start: 06-15-2022 End: 06-15-2022 ambulatory Lab/[facility] Work Phone: Hematology/Oncology Comment on above: Malignant neoplasm o f left breast in female, estrogen receptor positive, unspecified site of breast (HCC) (Primary Dx) Start: 06-07-2022 Non-patient / Non-visit Dr. Anny Richardson Work Phone: [facility] Start: 06-07-2022 End: 06-07-[address] Erica Richardson Work Phone: [facility] Work Phone: Start: 06-07-2022 End: 06-07-[address] Erica Richardson Work Phone: [facility] Start: 04-25-2022 End: 04-25-2022 ambulatory Lab/[facility] Work Phone: Hematology/Oncology Comment on above: Malignant neoplasm o f left breast in female, estrogen receptor positive, unspecified site of breast (HCC) (Primary Dx) Start: 03-28-2022 End: 03-28-2022 ambulatory Lab/[place] [facility] Work Phone: Hematology/Oncology Comment on above: Malignant neoplasm o f left breast in female, estrogen receptor positive, unspecified site of breast (HCC) (Primary Dx) Start: 03-06-2022 End: 03-06-[address] Erica Richardson Work Phone: [facility] Work Phone: Start: 03-06-2022 End: 03-06-[address] Erica Richardson Work Phone: [facility] Start: 03-06-[address] Erica mejia Work Phone: [facility] Start: 03-03-2022 End: 03-03-[address] Erica Richardson Work Phone: [facility] Start: 02-27-2022 End: 02-27-[address] Erica Richardson Work Phone: [facility] Work Phone: Start: 02-27-2022 End: 02-27-[address] Erica Richardson Work Phone: [facility] Start: 02-27-[address] Erica mejia Work Phone: [facility] Start: 02-20-2022 End: 02-20-[address] Erica Richardson Work Phone: [facility] Work Phone: Start: 02-20-2022 End: 02-20-[address] Erica Richardson Work Phone: [facility] Start: 02-20-2022 Registered Referred [facility] Start: 02-13-2022 End: 02-13-2022 ambulatory [facility] Work Phone: Start: 02-13-2022 End: 02-13-2022 Departed Referred [facility] Start: 02-13-[address] Erica mejia Work Phone: [facility] Start: 02-06-2022 End: 02-06-[address] Erica Richardson Work Phone: [facility] Work Phone: Start: 02-06-2022 End: 02-06-[address] Erica Richardson Work Phone: [facility] Start: 02-06-[address] Erica mejia Work Phone: [facility] Start: 01-30-2022 End: 01-30-[address] Erica Richardson Work Phone: [facility] Work Phone: Start: 01-30-2022 End: 01-30-[address] Erica Richardson Work Phone: [facility] Start: 01-30-[address] Erica mejia Work Phone: [facility] Start: 01-22-2022 End: 01-22-[address] Erica Richardson Work Phone: [facility] Work Phone: Start: 01-22-2022 End: 01-22-[address] Erica Richardson Work Phone: [facility] Start: 01-22-[address] Erica mejia Work Phone: [facility] Start: 01-16-2022 End: 01-16-[address] Erica Richardson Work Phone: [facility] Work Phone: Start: 01-16-2022 End: 01-16-[address] Erica Richardson Work Phone: [facility] Start: 01-16-[address] Erica mejia Work Phone: [facility] Start: 01-10-2022 End: 01-10-2022 Emergency department patient visit Dr. Erica Richardson Work Phone: [facility] Start: 01-09-2022 End: 01-09-2022 Patient encounter procedure All Tsang MD Work Phone: [facility] Comment on above: SDH (subdural hemato ma) (Primary Dx); Cerebral hemorrhage (HCC) Start: 01-09-2022 End: 01-09-2022 ambulatory ERICA RICHARDSON Facility:[facility] Start: 01-09-2022 End: 01-09-[address] Erica Richardson Work Phone: [facility] Start: 01-09-[address] Erica mejia Work Phone: [facility] Start: 01-04-2022 End: 01-04-2022 ambulatory Lab/Port [facility] Work Phone: Hematology/Oncology Comment on above: Malignant neoplasm o f left breast in female, estrogen receptor positive, unspecified site of breast (HCC) (Primary Dx) Start: 01-04-2022 End: 01-04-2022 Subsequent hospital visit by physician [employer] [facility] (I-Stat/1.5t) Work Phone: Radiology Comment on above: SDH (subdural hemato ma) (HCC) [S06.5X9A] Start: 01-03-2022 Telephone encounter Avni Shiva Brigido stephenson DO Work Phone: Hematology/Oncology Comment on above: Appointment Start: 01-02-2022 End: 01-02-[address] Erica Richardson Work Phone: [facility] Work Phone: Start: 01-02-2022 End: 01-02-[address] Erica Richardson Work Phone: [facility] Start: 01-02-[address] Erica mejia Work Phone: [facility] Start: 12-26-2021 End: 12-26-[address] Erica Richardson Work Phone: [facility] Work Phone: Start: 12-26-2021 End: 12-26-[address] Erica Richardson Work Phone: [facility] Start: 12-26-[address] Erica mejia Work Phone: [facility] Start: 12-20-2021 End: 12-20-[address] Erica Richardson Work Phone: [facility] Work Phone: Start: 12-20-2021 End: 12-20-[address] Erica Richardson Work Phone: [facility] Start: 12-20-[address] Erica mejia Work Phone: [facility] Start: 12-18-2021 End: 12-18-[address] Erica Richardson Work Phone: [facility] Work Phone: Start: 12-18-2021 End: 12-18-[address] Erica Richardson Work Phone: [facility] Start: 12-18-[address] Erica mejia Work Phone: [facility] Start: 12-12-2021 End: 12-12-[address] Erica Richardson Work Phone: [facility] Work Phone: Start: 12-12-2021 End: 12-12-[address] Erica Richardson Work Phone: [facility] Start: 12-12-[address] Erica mejia Work Phone: [facility] Start: 12-05-2021 End: 12-05-[address] Erica Richardson Work Phone: [facility] Work Phone: Start: 12-05-2021 End: 12-05-[address] Erica Richardson Work Phone: [facility] Start: 12-05-[address] Erica mejia Work Phone: [facility] Start: 12-03-2021 End: 12-03-[address] Erica Richardson Work Phone: [facility] Start: 12-01-2021 End: 12-01-[address] Erica Richardson Work Phone: [facility] Work Phone: Start: 12-01-2021 End: 12-01-[address] Erica Richardson Work Phone: [facility] Start: 12-01-[address] Erica mejia Work Phone: [facility] Start: 11-28-2021 End: 11-28-[address] Erica Richardson Work Phone: [facility] Work Phone: Start: 11-28-2021 End: 11-28-[address] Erica Richardson Work Phone: [facility] Start: 11-28-[address] Erica mejia Work Phone: [facility] Start: 11-21-2021 End: 11-21-[address] Erica Richardson Work Phone: [facility] Work Phone: Start: 11-21-2021 End: 11-21-[address] Erica Richardson Work Phone: [facility] Start: 11-21-[address] Erica mejia Work Phone: [facility] Start: 11-14-2021 End: 11-14-[address] Erica Richardson Work Phone: [facility] Start: 11-14-[address] Erica mejia Work Phone: [facility] Start: 11-09-2021 End: 11-09-[address] Erica Richardson Work Phone: [facility] Start: 11-09-[address] Erica mejia Work Phone: [facility] Start: 11-07-2021 End: 11-07-[address] Erica Richardson Work Phone: [facility] Start: 11-03-2021 End: 11-03-2021 ambulatory ERICA A MALYS Facility:[facility] Start: 11-02-2021 End: 11-02-2021 ambulatory ERICA A MALYS Facility:[facility] Start: 11-02-2021 End: 11-02-2021 Nursing evaluation of patient and report [facility] Work Phone: [facility] Comment on above: Closed fracture of m ultiple ribs with flail chest with routine healing, subsequent encounter (Primary Dx) Start: 11-02-2021 End: 11-02-2021 Subsequent hospital visit by physician [facility] Comment on above: Closed fracture of m ultiple ribs of left side, initial encounter [S22.42XA] Start: 10-31-2021 End: 10-31-[address] Erica Richardson Work Phone: [facility] Start: 10-31-[address] Erica mejia Work Phone: [facility] Start: 10-30-2021 End: 10-30-2021 Subsequent hospital visit by physician Ct [facility] (I-Stat) Work Phone: Cat Scan Comment on above: SDH (subdural hemato ma) (HCC) [S06.5X9A] Start: 10-27-2021 End: 10-27-[address] Erica Richradson Work Phone: [facility] Start: 10-25-2021 End: 10-25-[address] Erica Richardson Work Phone: [facility] Start: 10-24-2021 End: 10-24-[address] Erica Richardson Work Phone: [facility] Start: 10-24-[address] Erica mejia Work Phone: [facility] Start: 10-20-2021 Telephone encounter Sherice espino APRN.CNP Work Phone: [facility] Comment on above: Appointment Start: 10-12-2021 Telephone encounter Eugene Santos MD Work Phone: [facility] Comment on above: Patient Update Start: 10-11-2021 Orders Only Yolie braswell PA-C Work Phone: [facility] Comment on above: SDH (subdural hemato ma) (HCC) (Primary Dx) Start: 10-07-2021 End: 10-17-2021 Evaluation and management of inpatient ERICAShiva RICHARDSON Facility:[facility] Start: 10-06-2021 End: 10-07-2021 Emergency department patient visit Dr. Erica Richardson Work Phone: [facility] Start: 10-03-2021 End: 10-03-2021 ambulatory Lab/[facility] Work Phone: Hematology/Oncology Comment on above: Malignant neoplasm o f left breast in female, estrogen receptor positive, unspecified site of breast (HCC) (Primary Dx) Start: 08-29-2021 End: 08-29-2021 ambulatory Lab/Port [facility] Work Phone: Hematology/Oncology Comment on above: Malignant neoplasm o f left breast in female, estrogen receptor positive, unspecified site of breast (HCC) (Primary Dx) Start: 08-10-2021 End: 08-10-[address] Erica Richardson Work Phone: [facility]Out[facility] Bone Densitometry Start: 08-07-2021 End: 08-07-[address] Erica Richardson Work Phone: [facility] Start: 08-01-2021 End: 08-01-2021 ambulatory Lab/Port [facility] Work Phone: Hematology/Oncology Comment on above: Malignant neoplasm o f left breast in female, estrogen receptor positive, unspecified site of breast (HCC) (Primary Dx) Start: 07-28-2021 End: 07-28-[address] Erica Richardson Work Phone: [facility] Start: 07-12-2021 End: 07-12-2021 Patient encounter procedure Nicho Johnson MD Work Phone: [facility] Comment on above: Otalgia, right (Prim neel Dx); Vertigo; URI, acute Start: 06-11-2021 End: 06-11-2021 Emergency department patient visit Dr. Erica Richardson Work Phone: [facility] Start: 05-21-2021 End: 05-21-2021 Emergency department patient visit Dr. Erica Richardson Work Phone: [facility] Start: 03-17-2021 End: 03-17-2021 Subsequent hospital visit by physician [facility] Work Phone: Radiology Comment on above: Injury of left upper arm, subsequent encounter [S49.92XD] Start: 04-16-2020 End: 04-17-2020 Evaluation and management of inpatient Solomon Ashlie Tenorio Work Phone: [facility] Comment on above: Traumatic subdural h ematoma with loss of consciousness of 30 minutes or less, subsequent encounter (Primary Dx) Start: 06-13-2018 ambulatory UNKNOWN PROVIDER [facility] Procedures Date Procedure Procedure Detail Performing Clinician Start: 11-13-2024 Urnls dip stick/tabl et reagent auto microscopy Dr. Erica Richardson DO Work Phone: Start: 09-28-2024 Vitamin D, 25-hydrox y measurement Dr. Erica Richardson DO Work Phone: Comment on above: Vitamin D StatusDefi ciency: <20 ng/mL (50nmol/L)Insufficiency: 20-30 ng/mL (50-75 nmol/L)Sufficiency: 30-100 ng/mL (75-250 nmol/L)Toxicity: >100 ng/mL (>250 nmol/L) Start: 09-26-2024 Plain X-ray of clavicle Dr. Erica Richardson DO Work Phone: Start: 09-26-2024 Plain X-ray of shoulder Dr. Erica Richardson DO Work Phone: Start: 09-23-[address] Erica Richardson DO Work Phone: Start: 09-22-2024 Urnls dip stick/tabl et reagent auto microscopy Dr. Erica Richardson DO Work Phone: Start: 09-22-2024 Plain chest X-ray Dr. Josh Richardson DO Work Phone: Start: 09-22-2024 CT of head without contrast Dr. Erica Richardson DO Work Phone: Start: 09-22-[address] Erica Richardson DO Work Phone: Start: 09-22-2024 SARS-CoV-2, Influenz a & RSV (PCR) Dr. Erica Richardson DO Work Phone: Start: 09-22-[address] Erica Richardson DO Work Phone: Start: 09-11-[address] Erica Richardson DO Work Phone: Start: 08-21-[address] Erica Richadrson DO Work Phone: Start: 08-05-2024 Urine culture [...] exam ches t 2 views Eliel Blount AUTOMOTIVE TIRE TECHNICIAN.SNAILER Work Phone: Start: 07-02-2022 CT cervical spine [...] brain stem w/o w/contrast material Sherice Rosenberg AUTOMOTIVE TIRE TECHNICIAN.SNAILER Work Phone: Start: 11-02-2021 Radiologic exam ches t 2 views Boaz Grimaldo PA-C Work Phone: Start: 10-30-2021 Ct head/brain w/o co ntrast material Yolie Lowe PA-C Work Phone: Start: 10-09-2021 Antibody screen ERICA BLACK Comment on above: Order Comment: Speci men Type: BLOOD SPECIMENOrdering Facility: [facility] Address: [address] [address] Performed By: #### T SCR ####[facility] BLOOD BANKCLIA [id number] [address] Start: 10-07-2021 Antibody screen ERICA BLACK Comment on above: Order Comment: Speci men Type: BLOOD SPECIMENOrdering Facility: [facility] Address: [address] [place] [address] Performed By: #### T SCR ####[facility] BLOOD BANKCLIA [id number] [address] Start: 10-07-2021 Plain chest X-ray Dr. [...] Radex humerus minimu m 2 views Earline Rebolledo AUTOMOTIVE TIRE TECHNICIAN.SNAILER Work Phone: Start: 12-08-2020 Adult depression scr eening assessment Nicho Johnson MD Work Phone: Start: 12-05-2020 Mammography Nicho jovel MD Work Phone: Start: 04-17-2020 ADD ON LAB TEST Kailee Ledbetter Linda Work Phone: Start: 04-17-2020 Ct head/brain w/o co ntrast material Anibal Shannon Av Work Phone: Start: 04-17-2020 ADD ON LAB TEST Anibal Shannon Av Work Phone: Start: 04-17-2020 Albumin serum plasma /whole blood Anibal Shiva Av Work Phone: Start: 04-17-2020 Assay of lactate Anibal Shiva Av Work Phone: Start: 04-17-2020 Assay of magnesium Andr aaron Shannon Av Work Phone: Start: 04-17-2020 Assay of phosphorus inorganic Anibal Shannon Av Work Phone: Start: 04-17-2020 Assay of thyroid sti mulating hormone tsh Anibal Shannon vA Work Phone: Start: 04-17-2020 BASIC METABOLIC PANE L W/ REFLEX TO MG FOR LOW K Anibal Shiva Av Work Phone: Start: 04-17-2020 Blood count complete auto&auto difrntl wbc Anibal Shannon Av Work Phone: Start: 04-17-2020 Cyanocobalamin vitamin b-12 Anibal Shiva Av Work Phone: Start: 04-16-2020 Assay of lactate Solomon Tenorio Work Phone: Start: 04-16-2020 Assay of ethanol Anibal Ley Work Phone: Start: 04-16-2020 Assay of lactate Anibal Ley Work Phone: Start: 04-16-2020 BASIC METABOLIC PANE L W/ REFLEX TO MG FOR LOW K Anibal Ley Work Phone: Start: 04-16-2020 Blood count complete auto&auto difrntl wbc Anibal Ley Work Phone: Start: 04-16-2020 Drug screen class list a Anibal Ley Work Phone: Start: 04-16-2020 Ecg routine ecg w/le ast 12 lds w/i&r Anibal Ley Work Phone: Urine culture Dr. Erica Richardson Work Phone: Plan of Treatment Date Care Activity Detail Author Start: 06-16-2029 Urine microalbumin profile DTaP,Tdap,Td Vaccine (2 - Td or Tdap) [facility] Start: 10-17-2024 DIABETES SCREEN DIABETES SCREEN [facility] Start: 10-17-2024 Diabetes Screening Diabetes Screenin g [facility] Start: 10-12-2024 DIABETES SCREEN DIABETES SCREEN [facility] Start: 10-11-2024 DIABETES SCREEN DIABETES SCREEN [facility] Start: 09-26-2024 [facility] Start: 09-25-2024 Patient discharge [facility] Start: 09-23-2024 Following clinical pathway protocol [facility] Start: 09-23-2024 Patient referral to dietitian [facility] Start: 09-22-2024 Aspiration precautions [facility] Start: 09-22-2024 Assessment of risk o f venous thromboembolism [facility] Start: 09-22-2024 Fall prevention [facility] Start: 09-22-2024 Insertion of cathete r into peripheral vein [facility] Start: 09-22-2024 Introduction of urin neel catheter [facility] Start: 09-22-2024 Measuring intake and output [facility] Start: 09-22-2024 Providing care accor ding to standard [facility] Start: 09-22-2024 Provision of activit y privileges [facility] Start: 09-22-2024 Referral to occupati onal therapist [facility] Start: 09-22-2024 Referral to service [facility] Start: 09-22-2024 [facility] Start: 09-22-2024 Verification routine [facility] Start: 09-22-2024 Admission procedure [facility] Start: 09-22-2024 Hospital admission, emergency, from emergency room, medical nature [facility] Start: 09-22-2024 End: 09-22-2024 [facility] Start: 09-22-2024 Bacteria identified in Urine by Culture Urine Culture [facility] Start: 09-22-2024 Urine culture [facility] Start: 07-04-2024 [facility] Start: 07-04-2024 Venous catheter care management [facility] Start: 02-03-2024 End: 02-03-2024 ambulatory 02/03/2024 2:30 PM EDT [facility] Hematology/Oncology [address] [place] [address] Wstr, Lab/Port Mark [facility] [address] [place] [address] Q3MO PORT FLUSH* Hematology/Oncology Comment on above: Q3MO PORT FLUSH* Start: 12-22-2023 Covid-19 Vaccine ( season) Covid-19 Vaccine ( season) [facility] Start: 12-22-2023 Covid-19 Vaccine ( season) Covid-19 Vaccine ( season) [facility] Start: 12-22-2023 Influenza vaccination [facility] Start: 11-23-2023 BP CONTROLLED (<130/80) BP CONTROLLE D (<130/80) [facility] Start: 08-20-2023 [facility] Start: 05-21-2023 Patient discharge [facility] Start: 05-21-2023 Removal of urinary catheter [facility] Start: 05-21-2023 Urinary bladder resi dual urine study [facility] Start: 05-19-2023 Aspiration precautions [facility] Start: 05-19-2023 Assessment of risk o f venous thromboembolism [facility] Start: 05-19-2023 Fall prevention [facility] Start: 05-19-2023 Inhalation therapy procedure [facility] Start: 05-19-2023 Insertion of cathete r into peripheral vein [facility] Start: 05-19-2023 Introduction of urin neel catheter [facility] Start: 05-19-2023 Measuring intake and output [facility] Start: 05-19-2023 Oxygen therapy [facility] Start: 05-19-2023 Providing care accor ding to standard [facility] Start: 05-19-2023 Provision of activit y privileges [facility] Start: 05-19-2023 Referral to occupati onal therapist [facility] Start: 05-19-2023 Referral to service [facility] Start: 05-19-2023 Speech therapy assessment [facility] Start: 05-19-2023 [facility] Start: 05-19-2023 Following clinical pathway protocol [facility] Start: 05-19-2023 Hospital admission, emergency, from emergency room, medical nature [facility] Start: 05-19-2023 Legionella pneumophi la Ag [Presence] in Urine [facility] Start: 05-19-2023 Streptococcus pneumo niae antigen assay [facility] Start: 05-19-2023 Verification routine [facility] Start: 05-19-2023 Admission procedure [facility] Start: 05-18-2023 End: 05-19-2023 Blood culture [facility] Start: 05-18-2023 Partial thromboplast in time, activated [facility] Start: 05-18-2023 Prothrombin time [facility] Start: 05-18-2023 End: 05-18-2023 [facility] Start: 05-18-2023 Bacteria identified in Blood by Culture Blood Culture [facility] Start: 05-18-2023 Bacteria identified in Urine by Culture [facility] Start: 04-22-2023 Advance Directive Discussion Advance Directive Discussion [facility] Start: 04-22-2023 Behavioral Health Screening Behavioral Health Screening [facility] Start: 01-09-2023 BP CONTROLLED (<130/80) BP CONTROLLE D (<130/80) [facility] Start: 12-21-2022 Covid-19 Vaccine () Covid-19 Vaccine () [facility] Start: 12-21-2022 Influenza vaccination [facility] Start: 11-23-2022 Patient discharge [facility] Start: 11-23-2022 Venous catheter care management [facility] Start: 11-23-2022 Respiratory secretio n precautions [facility] Start: 11-22-2022 Physiotherapy of chest [facility] Start: 11-22-2022 Ambulation without limitation [facility] Start: 11-22-2022 Assessment of risk o f venous thromboembolism [facility] Start: 11-22-2022 Incentive spirometry [facility] Start: 11-22-2022 Insertion of cathete r into peripheral vein [facility] Start: 11-22-2022 Measuring intake and output [facility] Start: 11-22-2022 Oxygen therapy [facility] Start: 11-22-2022 Providing care accor ding to standard [facility] Start: 11-22-2022 Referral to occupati onal therapist [facility] Start: 11-22-2022 Referral to service [facility] Start: 11-22-2022 [facility] Start: 11-22-2022 Following clinical pathway protocol [facility] Start: 11-22-2022 Admission procedure [facility] Start: 11-22-2022 Verification routine [facility] Start: 11-22-2022 [facility] Start: 11-22-2022 Inhalation therapy procedure [facility] Start: 11-03-2022 BP CONTROLLED (<130/80) BP CONTROLLE D (<130/80) [facility] Start: 11-02-2022 BP CONTROLLED (<130/80) BP CONTROLLE D (<130/80) [facility] Start: 10-07-2022 Influenza vaccination LUNG CANCER SC REENING [facility] Start: 10-07-2022 Screening for malign ant neoplasm of lung Lung Cancer Screening [facility] Start: 10-05-2022 DIABETES SCREEN DIABETES SCREEN [facility] Start: 07-02-2022 Simple repair f/e/e/ n/l/m 2.6cm-5.0 cm RPR F/E/E/N/L/M 2.6-5.0 CM [facility] Start: 04-22-2022 ADVANCE DIRECTIVE DISCUSSION ADVANCE DIRECTIVE DISCUSSION [facility] Start: 04-22-2022 DEPRESSION ASSESSMENT DEPRESSION ASS ESSMENT [facility] Start: 02-02-2022 End: 12-02-2022 Radiologic exam chest 2 views XR CHEST 2V FRONTAL/LAT Radiology Routine Closed fracture of multiple ribs with flail chest with routine healing, subsequent encounter Expected: 02/02/2022, Expires: 12/02/2022 [facility] Work Phone: Comment on above: Expected: 02/02/2022 , Expires: 12/02/2022 Start: 01-10-2022 Simple repair scalp/neck/ax/genit/trunk 2.5cm/< RPR S/N/AX/GEN/TRNK 2.5CM/< [facility] Work Phone: Start: 12-21-2021 Influenza vaccination INFLUENZA (#1) [facility] Start: 12-08-2021 Adult depression screening assessment DEPRESSION SCREENING [facility] Start: 12-05-2021 Mammography MAMMOGRAM [facility] Start: 2021 RSV Vaccine (1 - 1-d ose 75+ series) RSV Vaccine (1 - 1-dose 75+ series) [facility] Start: 10-25-2021 End: 11-10-2022 Ct head/brain w/o contrast material CT BRAIN WO IVCON Radiology Routine SDH (subdural hematoma) (HCC) Expected: 10/25/2021, Expires: 11/10/2022 [facility] Work Phone: Comment on above: Expected: 10/25/2021 , Expires: 11/10/2022 Start: 10-07-2021 Plain chest X-ray Chest 1 View (Port able) [facility] Work Phone: Start: 10-07-2021 XR Chest Single view [facility] Work Phone: Start: 10-06-2021 Perq drainage pleura insert cath w/o imaging INSERT CATH PLEURA W/O IMAGE [facility] Work Phone: Start: 04-22-2021 ADVANCE DIRECTIVE DISCUSSION ADVANCE DIRECTIVE DISCUSSION [facility] Start: 04-22-2021 DEPRESSION ASSESSMENT DEPRESSION ASS ESSMENT [facility] Start: 12-21-2020 COVID-19 VACCINE (3 - Booster for Moderna series) COVID-19 VACCINE (3 - Booster for Moderna series) [facility] Start: 10-05-2020 Influenza vaccination LUNG CANCER SC REENING [facility] Start: 09-15-2020 COVID-19 VACCINE (3 - Booster for Moderna series) COVID-19 VACCINE (3 - Booster for Moderna series) [facility] Start: 09-15-2020 COVID-19 VACCINE (3 - Moderna series) COVID-19 VACCINE (3 - Moderna series) [facility] Start: 05-09-2020 End: 04-17-2021 CT Head WO Contrast CT Head WO Contrast Imaging Routine Traumatic subdural hematoma with loss of consciousness of 30 minutes or less, subsequent encounter Expected: 05/09/2020 (Approximate), Expires: 04/17/2021 [place] Comment on above: Expected: 05/09/2020 (Approximate), Expires: 04/17/2021 Start: 11-07-2011 Pneumococcal Vaccine : 65+ (1 of 1 - PCV) Pneumococcal Vaccine: 65+ (1 of 1 - PCV) [facility] Start: 11-07-2011 PNEUMOCOCCAL: 65+ (1 - PCV) PNEUMOCOCCAL: 65+ (1 - PCV) [facility] Start: 11-07-2011 PNEUMOVAX AGE 65 AND OVER WITH 5YR LOOKBACK (#1) PNEUMOVAX AGE 65 AND OVER WITH 5YR LOOKBACK (#1) [facility] Start: 2006 RSV Vaccine (1 - 1-d ose 60+ series) RSV Vaccine (1 - 1-dose 60+ series) [facility] Start: 1996 SHINGRIX VACCINE (1 of 2) VEGA GRIX VACCINE (1 of 2) [facility] Start: 11-07-1991 COLOGUARD (FIT-DNA) COLOGUARD (FIT-D NA) [facility] Start: 11-07-1991 Colonoscopy COLONOSCOPY [facility] Start: 11-07-1991 COLORECTAL CANCER SCREENING COLORECTAL CANCER SCREENING [facility] Start: 11-07-[address] COLONOGRAPHY [facility] Start: 11-07-1991 FECAL OCCULT BLOOD FECAL OCCULT BLOO D [facility] Start: 11-07-1991 LIPID SCREEN LIPID SCREEN [facility] Start: 11-07-1991 SIGMOIDOSCOPY SIGMOIDOSCOPY [facility] Start: 1965 SHINGRIX VACCINE (1 of 2) VEGA GRIX VACCINE (1 of 2) [facility] Start: 1965 Urine microalbumin profile DTAP,TDAP,TD (1 - Tdap) [facility] Start: 1964 ANNUAL PCP TEAM DRESS CUTTER ALICIA DISEASE VISIT ANNUAL PCP TEAM CHRONIC DISEASE VISIT [facility] Start: 1964 BP CONTROLLED (<130/80) BP CONTROLLE D (<130/80) [facility] Start: 1964 Depression Screening Depression Scre ening [facility] Start: 1964 HEPATITIS C SCREENING HEPATITIS C [facility] Start: 1964 Hepatitis C screening Hepatitis C [facility] Start: 1952 PNEUMOCOCCAL: 65+ (1 - PCV) PNEUMOCOCCAL: 65+ (1 - PCV) [facility] End: 04-17-2020 aPTT Coag (Bld) [Time] APTT Lab STAT One Time for 1 Occurrences starting 04/17/2020 until 04/17[facility] Comment on above: One Time for 1 Occur rences starting 04/17/2020 until 04/17/2020 aPTT in Platelet poo r plasma by Coagulation assay [facility] Bacteria identified in Sputum by Respiratory culture [facility] Basic Metabolic Pane l w/ Reflex to MG Basic Metabolic Panel w/ Reflex to MG Lab Routine Daily until discontinued starting 04/16/2020, 2 completed [facility] Comment on above: Daily until disconti nued starting 04/16/2020, 2 completed CBC auto differential CBC auto d ifferential Lab Routine Daily until discontinued starting 04/16/2020, 2 completed [facility] Comment on above: Daily until disconti nued starting 04/16/2020, 2 completed EKG 12 Lead EKG 12 Lead ECG Routine 04/16/2020 11:45 AM EST [facility] INR in Platelet poor plasma by Coagulation assay [facility] Magnesium [Mass/volu me] in Serum or Plasma [facility] Microscopic observat ion [Identifier] in Unspecified specimen by Gram stain [facility] Oxygen therapy [Mini mum Data Set] Initiate Oxygen Therapy Protocol Respiratory Care Routine Daily until discontinued starting 04/16/2020 [facility] Comment on above: Daily until disconti nued starting 04/16/2020 Patient Education [facility] Work Phone: Patient referral [facility] Work Phone: Phosphate [Mass/Vol] Phosphorus Lab Routine Daily until discontinued starting 04/17/2020, 1 completed [facility] [place] Comment on above: Daily until disconti nued starting 04/17/2020, 1 completed Radiologic exam ches t 2 views XR CHEST 2V FRONTAL/LAT Radiology Routine Closed fracture of multiple ribs of left side, initial encounter Lung laceration, subsequent encounter 11/02/2021 12:32 PM EDT [facility] Work Phone: SARS-CoV-2 (COVID-19 ) RNA [Presence] in Respiratory specimen by LEONA with probe detection 2019 CORONAVIRUS Microbiology Routine Acute cough SOB (shortness of breath) Suspected COVID-19 virus infection 11/22/2022 12:45 PM EDT [facility] Work Phone: Serum inorganic phos phate measurement [facility] End: 04-16-2020 Speech and language therapy regime Speech language pathology evaluation [employer] FINISHER Routine One Time for 1 Occurrences starting 04/16/2020 until 04/16/2020 [facility] [place] Comment on above: One Time for 1 Occur rences starting 04/16/2020 until 04/16/2020 End: 04-18-2020 Vitamin D 25 Hydroxy Vitamin D 25 Hydroxy Lab Routine Tomorrow AM for 1 Occurrences starting 04/18/2020 until 04/18/2020 [facility] [place] Comment on above: Tomorrow AM for 1 Oc currences starting 04/18/2020 until 04/18/2020 [facility] Immunizations Immunization Date Immunization Notes Care Provider Fa cility 12-18-2023 tetanus toxoid, reduced diphtheria toxoid, and acellular pertussis vaccine, adsorbed Dr. Erica Richardson DO Work Phone: [facility] 08-20-2023 tetanus toxoid, reduced diphtheria toxoid, and acellular pertussis vaccine, adsorbed Dr. Erica Richardson Work Phone: [facility] 03-09-2021 influenza, injectabl e, quadrivalent, preservative free Dr. Erica Richardson Work Phone: [facility] 03-09-2021 influenza, seasonal, injectable Dr. Erica Richardson Work Phone: [facility] 03-09-2021 influenza virus vaccine, unspecified formulation Lab/Port Wstr Work Phone: [facility] 07-27-2020 Covid (Moderna) Dr. Erica kuhn Work Phone: [facility] 07-21-2020 COVID-19 vaccine, fu ll dose (MODERNA) Nicho Johnson MD Work Phone: [facility] 06-29-2020 Covid (Moderna) Dr. Erica kuhn Work Phone: [facility] 06-24-2020 COVID-19 vaccine, fu ll dose (MODERNA) Nicho Johnson MD Work Phone: [facility] 02-09-[address] Erica Richardson Work Phone: [facility] 09-11-[address] Elena Richardson Work Phone: [facility] Work Phone: 09-11-2019 pneumococcal vaccine , unspecified formulation [facility] 06-16-2019 tetanus toxoid, reduced diphtheria toxoid, and acellular pertussis vaccine, adsorbed Dr. Erica Richardson Work Phone: [facility] 01-23-2019 influenza, high dose seasonal, preservative-free Nicho Johnson MD Work Phone: [facility] NEGATED: Highlighted row has not occurred!04-17-2020 tetanus and diphtheria toxoids, adsorbed, preservative free, for adult use (5 Lf of tetanus toxoid and 2 Lf of diphtheria toxoid) [place], [place] Payers Date Payer Category Payer Self-pay [id number] 2016 Unknown ARJUN [employer] DICARE SUPPLEMENT [id number] 2016-Present [phone] [id number] Indemnity [id number] 2016 Unknown [employer]JUN [employer] DICARE SUPPLEMENT [id number] 2016-Present [phone] [id number] [place], [place] [id number] Indemnity [id number] 2012 Unknown [id number] 2011 Medicare MEDICARE MEDICAR E A AND B [id number] 2011-Present [phone] [place] [address] Medicare [id number] 2011 Medicare MEDICARE MEDICAR E A AND B [id number] 2011-Present [phone] [place] [address] Medicare [id number] 2011 Medicare [id number] Unknown [id number] 2.16.840.1.976666.3.579.2.46 2 Unknown [id number] 2.16.840.1.542031.3.579.2.46 2 Unknown [id number] 2.16.840.1.659173.3.579.2.46 2 Unknown [id number] 2.16.840.1.125980.3.579.2.46 2 Unknown [id number] 2.16.840.1.331357.3.579.2.46 2 Unknown [id number] 2.16.840.1.949100.3.579.2.46 2 Unknown [id number] 2.16.840.1.186850.3.579.2.46 2 Unknown [id number] 2.16.840.1.295904.3.579.2.46 2 Unknown [id number] 2.16.840.1.979369.3.579.2.46 2 Unknown [id number] 2.16.840.1.158879.3.579.2.46 2 Unknown [id number] 2.16.840.1.584387.3.579.2.46 2 Unknown [id number] 2.16.840.1.463789.3.579.2.46 2 Unknown [id number] 2.16.840.1.342979.3.579.2.46 2 Unknown [id number] 2.16.840.1.192444.3.579.2.46 2 Unknown [id number] 2.16.840.1.808866.3.579.2.46 2 Unknown [id number] 2.16.840.1.160950.3.579.2.46 2 Unknown [id number] 2.16.840.1.815858.3.579.2.46 2 Unknown [id number] 2.16.840.1.772451.3.579.2.46 2 Unknown [id number] 2.16.840.1.864782.3.579.2.46 2 Unknown [id number] 2.16.840.1.946926.3.579.2.46 2 Unknown [id number] 2.16.840.1.045738.3.579.2.46 2 Unknown [id number] 2.16.840.1.009092.3.579.2.46 2 Unknown [id number] 2.16.840.1.243603.3.579.2.46 2 Unknown [id number] 2.16.840.1.368419.3.579.2.46 2 Unknown [id number] 2.16.840.1.641940.3.579.2.46 2 Unknown [id number] 2.16.840.1.448199.3.579.2.46 2 Unknown [id number] 2.16.840.1.226607.3.579.2.46 2 Unknown [id number] 2.16.840.1.045030.3.579.2.46 2 Social History Date Type Detail Facility Start: 04-17-2020 End: 09-26-2024 Tobacco smoking status NHIS Former smoker [facility] Start: 02-20-1979 End: 02-20-2019 History of tobacco use Current smoker [place] Start: 03-29-2020 End: 04-17-2020 Cigarettes smoked current (pack per day) - Reported [facility] Start: 05-01-2019 End: 04-17-2020 Tobacco use and exposure Never used [place] Start: 04-17-2020 Alcohol intake Current drinke r of alcohol (finding) [place] Start: 04-16-2020 Alcohol Comment 2-3 times a week [place], [place] Start: 1945 Sex Assigned At Not on file [place] Start: 02-15-2021 End: 01-09-2022 Exposure to SARS-CoV-2 (event) Not sure [place] Start: 02-20-1979 End: 02-20-2019 History of tobacco use Cigarette Smoker [facility] Start: 01-12-2021 End: 07-12-2021 Alcohol intake Current non-drinker of alcohol (finding) [facility] Start: 08-07-2021 End: 08-20-2023 Tobacco smoking status NHIS Unknown if ever smoked [facility] Start: 03-11-2020 Heavy [facility] Start: 03-10-2020 None [facility] Start: 03-11-2020 Alone [facility] Start: 09-01-2019 Cigarettes [facility] Start: 1945 Sex Assigned At Female [facility] Start: 03-29-2020 End: 11-22-2022 Tobacco use panel [facility] National Score (1-10 0), lower number is lower risk 99 [facility] Start: 07-04-2024 Sex Female (finding) [facility] Medical Equipment Procedure Code Equipment Code Equipment Origin al Text Equipment Identifier Dates Ezw-Rg-U-Kind Implant - [id number] Start: 06-10-2015 Comment on above: Description: 3.5mm L CP plate 6 hole 85mm length [id number] PLATE Jgj-Mc-T-Kind Implant - [id number] Start: 06-10-2015 Comment on above: Description: DBX Put ty 0.5cc Screw [id number] Start: 06-13-2018 Plate Philos Standard Stainless Steel 90mm Bone 3 Hole Locking Compression - [id number] Start: 06-13-2018 Port Implantable Power Port 6fr - [id number] Start: 06-30-2012 Comment on above: Description: POWERPO RT Screw Lc-Dcp Dcp 3.5mm 6mm Full Thread Stainless Steel 14mm Bone Self Tap - [id number] Start: 06-10-2015 Screw Lcp 3.5mm Full Thread Stainless Steel 14mm Bone Stardrive Recess Self - [id number] Start: 06-10-2015 Screw Lc-Dcp Dcp 3.5mm 6mm Full Thread Stainless Steel 16mm Bone Self - [id number] Start: 06-10-2015 Screw 3.7mm T15 Full Thread Stainless Steel 36mm Bone Self Drill Cannulated - [id number] Start: 06-13-2018 Screw Lcp 3.5mm Full Thread Stainless Steel 26mm Bone Stardrive Recess Self - [id number] Start: 06-13-2018 Screw Dcp Lc-Dcp 3.5mm Stainless Steel 28mm Bone Self Tapping Hexagonal - [id number] Start: 06-13-2018 Screw 3.7mm Full Thread T15 Stainless Steel 38mm Bone Self Drill Cannulated - [id number] Start: 06-13-2018 Screw Lcp 3.5mm Stainless Steel 26mm Bone Self Tapping Small Fragment - [id number] Start: 06-13-2018 Screw 3.7mm T15 Full Thread Stainless Steel 50mm Bone Self Drill Cannulated - [id number] Start: 06-13-2018 Screw 3.7mm T15 Full Thread Stainless Steel 40mm Bone Self Drill Cannulated - [id number] Start: 06-13-2018 Plate Straight Eight Hole [id number] Start: 10-09-2021 Plate Pre-Contou red Sixteen Hole [id number] Start: 10-09-2021 Screw Locking Self-Drilling 2.4mm X 8mm [id number] Start: 10-09-2021 Cap Locking Larg e Bone Screw 323.1205 [id number] Start: 10-09-2021 Washer 9.5mm 323.1290 [id number] Start: 10-09-2021 Advatagerib Shor t Bridge 60mm W/23mm Locking Posts [id number] Start: 10-09-2021 2.7mm X 8mm Resc ue Locking Screw - [id number] Start: 10-09-2021 Goals Date Patient Goal Desired Activity /State Functional Status Date Assessment Result Facility 09-25-2024 Functional status Ambulates [facility] Work Phone: 05-21-2023 Functional status Ambulates [facility] Work Phone: 11-23-2022 Functional status Ambulates;Bathroom Priv ilege [facility] Work Phone: Mental Status Date Assessment Result Facility 09-25-2024 Cognitive function Voice/Name [facility] Work Phone: 09-22-2024 Cognitive function Level Of Cons ciousness Awake;Alert;Follows Commands [facility] Work Phone: 07-04-2024 Cognitive function Level Of Cons ciousness Awake;Alert;Appropriate [facility] Work Phone: 05-21-2023 Cognitive function Voice/Name [facility] Work Phone: 05-18-2023 Cognitive function Voice/Name [facility] Work Phone: 11-23-2022 Cognitive function Cooperative;Talkative [facility] Work Phone: 06-11-2021 Cognitive function Level Of Cons ciousness Awake;Alert;Appropriate;Follow s Commands [facility] Work Phone: Clinical Notes 07-17-2012 to 09-26-2024 Note Date & Type Note Facility 09-26-2024 Discharge summary [facility] 09-26-2024 Radiology Diagnostic study note [facility] Imaging Services [address] [place] [address] Shoulder min 2 Views MR#: [id number] Acct: [id number] Name: AIDEN FIELDS Rep #: [id number] : 1945 F 78 From: Pet er Peer DO PCP: Dr. Sheyla Mcgee MD Status: R ER Study:Shoulder min 2 Views Date of Exam: 09/26/24 Exam# [id number] Ordering Dr: Melva Olivas DO PROCEDURE: SHOULDER MIN 2 VIEWS 09/26/2024 REASON FOR EXAM: FALL Initial encounter TECHNIQUE: 4 view of the left shoulder FINDINGS: Healed proximal humerus fracture. Fracture in the distal 3rd of the clavicle. Previous open reduction internal fixation of rib fractures with plates and screws. No shoulder dislocation. Glenohumeral joint and bones intact Other: RAD/Shoulder min 2 Views IMPRESSION: Fracture in the distal 3rd of the clavicle. Reading [facility] CC: Dr. Sheyla Mcgee MD; Dr. Franky Olivas DO ~ Bender Machine: Signed [facility] 09-26-2024 Radiology Diagnostic study note [facility] Imaging Services [address] [place] [address] Clavicle MR#: [id number] Acct: [id number] Name: AIDEN FIELDS Rep #: [id number] : 1945 F 78 From: Pet er Peer PCP: Dr. Sheyla Mcgee MD Status: R EG ER Study:Clavicle Date of Exam: 09/26/24 Exam# [id number] Ordering Dr: Melva Olivas DO PROCEDURE: CLAVICLE 09/26/2024 REASON FOR EXAM: FALL Initial encounter TECHNIQUE: 2 view(s) of the left clavicle COMPARISON: No prior left clavicle radiographs. FINDINGS: LEFT CLAVICLE: Fracture in the distal 3rd of the clavicle with the parent 8 mm inferior displacement of the distal fracture fragment, been a apposition RAD/Clavicle IMPRESSION: Distal left clavicle fracture Reading [facility] CC: Dr. Sheyla Mcgee MD; Dr. Franky Olivas DO ~ Bender Machine: Signed [facility] 09-26-2024 Discharge summary Note Date/Time September 26, 2024 3:07p m [facility] Medical Records Department [address] [facility] [place] [address] Emergency Department Summary 09/26/24 MR#: [id number] Acct: [id number] Name: AIDEN FIELDS Rep #:[id number] : 1945 78 From: Franky Olivas DO PCP: Dr. Sheyla Mcgee MD Status:R EG ER Location: ED HPI History of Present Illness Chief Complaint: Fall Narrative Narrative: Patient is a 78-year-old female past medical anxiety, depression, hypoparathyroidism, tobacco use, alcohol abuse, arthritis who presented to the emergency department chief complaint of concern for a right clavicle fracture after a fall last night. According to family at bedside she attempted to get upon her own and she fell. Patient states that she did not hit her head she did not pass out she members entire event. Patient according to family bedside states that she just arrived to the rehab facility as she was just admitted to the hospital here for recurrent UTIs and generalized weakness they deny any blood thinning medications. [facility] Medical History Anxiety and depression Hypoparathyroidism after procedure Back problem Frequent falls Benzodiazepine dependence Opioid dependence Melanoma Tobacco abuse Hypothyroidism GERD (gastroesophageal reflux disease) Anemia Alcohol abuse Hypertension Multiple rib fractures Subdural hematoma Vitamin D deficiency Skin cancer Rheumatoid arthritis High cholesterol Calcium deficiency Glaucoma Breast cancer Arthritis Home Medications ?Medication ?Instructions ?Recorded ?Last Taken ?Type dexamethasone sodium phosphate 0.1 1 drp ophthalmic (e ye) DAILY 03/09/21 11/22/22 History % eye drops glaucoma amlodipine 5 mg tablet 5 mg PO [...] tablet 750 mg PO BID 11/22/2211/22 History albuterol sulfate 90 mcg/actuation 2 puff inhalation Q 6H PRN 11/23/22 Unknown Rx aerosol inhaler (Proventil HFA) shortness of breath or wheezing #8.5 grams acetaminophen 500 mg capsule 500 mg PO BID 05/19/23 Un known History famotidine 20 mg tablet (Pepcid) 20 mg PO QHS 05/19/23 Unknown History polyethylene glycol 3350 17 17 g PO DAILY 05/19/23 Unk nown History gram/dose oral powder (ClearLax) pyridoxine (vitamin B6) 100 mg 100 mg PO DAILY 4 Unknown History tablet liothyronine 5 mcg tablet 5 mcg PO DAILY 07/04/24 Unkn own History quetiapine 25 mg tablet 25 mg PO QHS 07/04/24 Unknow n History clonazepam 1 mg tablet 1 mg PO BID 30 days #60 tabs 09/25/24 Unknown Rx meropenem 1 gram intravenous 1 g IV Q8 #20 ea 09/25/24 Unknown Rx solution pregabalin 75 mg capsule 75 mg PO TID PAIN 30 days #9 0 caps 09/25/24 Unknown Rx Allergy/AdvReac Type Severity Reaction Status Date / Time bacitracin (From Neosporin Allergy Unknown Unknown Verified 09/22/24 20:06 ([id number])) neomycin (From Neosporin Allergy Unknown Unknown Verified 09/22/24 20:06 ([id number])) polymyxin B (From Neosporin Allergy Unknown Unknown Verified 09/22/24 20:06 ([id number])) Antihistamines - Alkylamine Allergy PT UNSURE Verified [...] not use ROS ROS ED ROS Narrative Constitutional: Denies any fevers, chills, headaches Eyes: No change in vision double vision blurry vision Cardiovascular: Denies chest pain or palpitations Respiratory: Denies coughing wheezing shortness of breath Abdomen: Denies abdominal pain : Denies any urinary symptoms Neurological: Complains of generalized weakness that this been going on since her recent hospitalization hence why she is at the facility for rehab denies anynumbness or tingling Musculoskeletal: Complains of right shoulder/clavicle pain Skin: Denies rashes or lesions EXAM Physical Exam Narrative Exam Narrative: General: Patient lying in bed rest comfortably did not appear to be acute distress Head: Atraumatic and normocephalic Eyes: PERRL bilaterally, EOMI bilateral, no conjunctival injection noted Neck: Soft, supple, trachea midline Cardiovascular: Regular in rhythm Respiratory: Clear to auscultation bilaterally Abdomen: No tenderness palpation, soft Musculoskeletal: Patient is tender to palpation over the left clavicle region, all the bony prominences palpated joints taken through full range of motion no pain elicited Extremities: +4/5 strength noted in the bilateral upper and lower extremities, radial pulses +2/4 in the bilateral extremities Neurological: Patient follow commands and that she was at [facility] the year is 2024. Sensation grossly intact in the median, ulnar, radial and axillary nerve distribution bilaterally Skin: Warm, dry, tact no rashes or lesions noted Const Vital Signs: 09/26/24 13:17 09/26/24 13:40 Temperature 97.4 F L Temperature Source Oral Pulse Rate 76 Respiratory Rate 16 Respiratory Effort Normal Respiratory Depth Normal Blood Pressure 149/70 H Blood Pressure Mean 96 Pulse Ox 96 Oxygen Delivery Method Room Air Room Air MDM MDM MDM Narrative Medical decision making narrative: Patient is a 78-year-old female who presented to the Emergency Department chief complaint of fall and concern for left clavicle fracture. The differential diagnose includes but not limited to left clavicle fracture, proximal humerus fracture. Once workup is obtained reviewed she will be reevaluated Patient's x-ray of her left shoulder reviewed by myself by radiology showed a fracture of the distal third of the clavicle. Patient left clavicle x-ray was reviewed by myself by radiology which showed fracture of the distal third of theclavicle with 8 mm inferior displacement of the distal fragment fracture. Discussed case with Dr. Obregon who states that she can be placed in a sling and follow-up with Dr. Obregon in the out patient setting. Patient was placed in a sling she will be advised to follow-up with Dr. Obregon in the outpatient setting. She was encouraged to return with worsening symptomsand concerns. She was discharged in the stable condition with all question concerns answered. Long member at bedside is agreeable this plan. Radiography Diagnostic Testing: Clinical Impression(s) from Imaging Studies Clavicle X-Ray 09/26/24 13:44 IMPRESSION: Distal left clavicle fracture Reading Location: [facility] Shoulder X-Ray 09/26/24 13:44 IMPRESSION: Fracture in the distal 3rd of the clavicle. Reading Location: [facility] Discharge Plan Triage Chief Complaint: Fall ED Provider: Franky Olivas Dx/Rx/DC Orders Clinical Impression: Clavicle fracture, Fall Prescriptions: No Action dexamethasone sodium phosphate 0.1 % drops 1 [...] 5 mcg tablet 5 mcg PO DAILY meropenem 1 gram Recon Soln 1 g IV Q8 Qty: 20 0RF clonazepam 1 mg tablet 1 mg PO BID 30 Days Qty: 60 0RF pregabalin 75 mg capsule 75 mg PO TID 30 Days Qty: 90 0RF Primary Care Provider: Sheyla Mcgee Referrals: Erica Richardson DO [Med Staff - Active Staff] - Parvez Obregon MD [Med Staff - Active Staff] - Activity Restrictions/Additional Instructions: Follow-up with Dr. Obregon in the outpatient setting. Wear the sling. Return with worsening symptoms or any concerns Print Language: Lao Disposition Disposition: Home, Self Care What to do if you have Problems For any increased pain, shortness of breath, bleeding, nausea or vomiting, chestpain, or any unexpected problems, contact your Primary Care Provider. Call [facility] ([phone]) or report to the closest Emergency Room. Call 911 if necessary. 09/26/24 1507 <Electronically signed by Franky Olivas DO> Cosigner Signature (if applicable): CC: Dr. Sheyla Mcgee MD ~ Signed [facility] Work Phone: 1(705) 199-275206-06-2025 Discharge summary Author [facility] Note Date/Time September 25, 2024 10:34 am [facility] Medical Records Department [address] [place] [address] Discharge Summary 09/25/24 1032 MR#: [id number] Acct: [id number] Name: AIDEN FIELDS Rep #:[id number] : 1945 78 From: Froy Velázquez DO PCP: Dr. Erica Richardson DO Status:ADM IN Location: [place] [id number]- [id number] Providers Date of Admission: 09/22/24 Primary [...] agents VTE prophylaxis: LMWH Disposition: DC to [facility] today. Medications at Discharge Home Medications dexamethasone [...] meropenem for 7 days. [facility] be [facility] in stable condition. Weight / BMI Weight [...] in before D/C Order can be placed): Shelter Facility Charges/Coding Visit Charges Inpatient E&M: 29869 Disch Hosp >30min 09/25/24 1034 <Electronically signed by Froy Velázquez DO> Cosigner Signature (if applicable): CC: Dr. Froy Velázquez DO; Dr. Erica Richardson DO~ Signed [facility] Work Phone: 1(667) 516-237006-06-2025 Discharge summary Author Froy Velázquez [facility] Note Date/Time September 25, 2024 10:32 am [facility] Medical Records Department [address] [place] [address] Transfer to [facility] MR#: [id number] Acct: [id number] Name: AIDEN FIELDS Rep #:[id number] : 1945 78 From: Froy Velázquez DO PCP: Dr. Erica Richardson DO Status:ADM IN Certification of patient admission REQUIRED AT TIME OF ADMISSION. I CERTIFY THAT POST-HOSPITAL ECF SERVICES ARE REQUIRED TO BE GIVEN ON AN IN-PATIENT BASIS BECAUSE OF THE ABOVE NAMED PATIENT'S NEED FOR SENIOR CARE CARE ON A CONTINUING BASIS FOR THE CONDITION(S) FOR WHICH HE/SHE WAS RECEIVING IN-PATIENT HOSPITAL SERVICES PRIOR TO HIS/HER TRANSFER TO THE [facility]. 09/25/24 1032<Electronically signed by Froy Velázquez DO> [...] agents VTE prophylaxis: LMWH Disposition: DC to [facility] today. Allergies/Procedures Done in Hospital Allergies bacitracin (From Neosporin (bok-zmi-qolyl)) Allergy (Unknown, Verified 09/22/24 20:06) Unknown neomycin (From Neosporin (oil-zfo-muknb)) Allergy (Unknown, Verified 09/22/24 20:06) Unknown polymyxin B (From Neosporin (ipq-qdl-xzcsp)) Allergy (Unknown, Verified 09/23/2519:06) Unknown Antihistamines - [...] in before D/C Order can be placed): Shelter Facility 09/25/24 1032 <Electronically signed by Froy Velázquez DO> Cosigner Signature (if applicable): CC: Dr. Aggie Bolton MD; Dr. Erica Richardson, ~ [facility] Work Phone: 1(481) 888-883406-06-2025 Progress note Author Froy Velázquez [facility] Note Date/Time September 25, 2024 10:26 am [facility] Medical Records Department [address] [place] [address] Progress Note - Hospitalist 09/25/24 0803 MR#: [id number] Acct: [id number] Name: AIDEN FIELDS Rep #:[id number] : 1945 78 From: Froy Velázquez DO PCP: Dr. Erica Richardson DO Status:ADM IN Location: [place] [address] Reason for Visit Reason for Visit: Diagnoses [...] agents VTE prophylaxis: LMWH Disposition: DC to [facility] today. 09/25/24 1026 <Electronically signed by Froy Velázquez DO> Cosigner Signature (if applicable): CC: ~ Signed [facility] Work Phone: 1(367) 175-154806-06-2025 Discharge summary [facility] Medical Records Department [address] [place] [address] Discharge Summary 09/25/24 1032 MR#: [id number] Acct: [id number] Name: AIDEN FIELDS Rep #:[id number] : 1945 78 From: Froy Velázquez DO PCP: Dr. Erica Richardson DO Status:ADM IN Location: [place] [address] Providers Date of Admission: 09/22/24 Primary Care [...] agents VTE prophylaxis: LMWH Disposition: DC to [facility] today. Medications at Discharge Home Medications dexamethasone [...] meropenem for 7 days. Patient be dischargedto [facility] in stable condition. Weight / BMI [...] in before D/C Order can be placed): Shelter Facility Charges/Coding Visit Charges Inpatient E&M: 71283 Disch Hosp >30min 09/25/24 1034 Cosigner Signature (if applicable): CC: Dr. Froy Velázquez DO; Dr. Erica Richardson DO~ Signed [facility]06-06-2025 Discharge summary [facility] Medical Records Department [address] [place] [address] Transfer to [facility] MR#: [id number] Acct: [id number] Name: AIDEN FIELDS Rep #:[id number] : 1945 78 From: Fryo Velázquez DO PCP: Dr. Erica Richardson DO Status:ADM IN Certification of patient admission REQUIRED AT TIME OF ADMISSION. I CERTIFY THAT POST-HOSPITAL [facility] SERVICES ARE REQUIRED TO BE GIVEN ON AN IN-PATIENT BASIS BECAUSE OF THE ABOVE NAMED PATIENT'S NEED FOR SENIOR CARE CARE ON A CONTINUING BASIS FOR THE CONDITION(S) FOR WHICH HE/SHE WAS RECEIVING IN-PATIENT HOSPITAL SERVICES PRIOR TO HIS/HER TRANSFER TO THE [facility]. 09/25/24 1032 Diet Diet Order/Speech Therapy: INPATIENT [...] agents VTE prophylaxis: LMWH Disposition: DC to [facility] today. Allergies/Procedures Done in Hospital Allergies bacitracin (From Neosporin (qes-icg-puahu)) Allergy (Unknown, Verified 09/22/24 20:06) Unknown neomycin (From Neosporin (jjv-vdx-zjrsh)) Allergy (Unknown, Verified 09/22/24 20:06) Unknown polymyxin B (From Neosporin (bjq-bkm-qetvy)) Allergy (Unknown, Verified 09/23/2519:06) Unknown Antihistamines - [...] in before D/C Order can be placed): Shelter Facility 09/25/24 1032 Cosigner Signature (if applicable): CC: Dr. Aggie Bolton MD; Dr. Erica Richardson DO ~ [facility]06-06-2025 [facility] Medical Records Department [address] [place] [address] Discharge Summary 09/25/24 1032 MR#: [id number] Acct: [id number] Name: AIDEN FIELDS Rep #: [id number] : 1945 78 From: Froy Velázquez DO PCP: Dr. Erica Richardson DO Status:ADM IN [id number] Providers Date of Admission: 09/22/24 Primary Care Physician: Dr. rEica Richardson DO Reason For Visit: ADULT FTT, [...] agents VTE prophylaxis: LMWH Disposition: DC to [facility] today. Medications at Discharge Home Medications dexamethasone [...] for 7 days. Patient be discharged to [facility] in stable condition. Weight / BMI [...] 20 mg tablet 2 (more content not included)...[facility]06-06-2025 Progress note [facility] Medical Records Department [address] [place] [address] Progress Note - Hospitalist 09/25/24 0803 MR#: [id number] Acct: [id number] Name: AIDEN FIELDS Rep #:[id number] : 1945 78 From: Froy Velázquez DO PCP: Dr. Erica Richardson, DO Status:ADM IN Location: [place] [address] Reason for Visit Reason for Visit: Diagnoses [...] agents VTE prophylaxis: LMWH Disposition: DC to [facility] today. 09/25/24 1026 Cosigner Signature (if applicable): CC: ~ Signed [facility]06-05-2025 Progress note Author Froy Velázquez [facility] Note Date/Time September 24, 2024 12:26 pm [facility] Medical Records Department [address] [place] [address] Progress Note - Hospitalist 09/24/24 0809 MR#: [id number] Acct: [id number] Name: AIDEN FIELDS Rep #:[id number] : 1945 78 From: Froy Velázquez DO PCP: Dr. Erica Richardson, DO Status:ADM IN Location: [place] [address] Reason for Visit Reason for Visit: Diagnoses [...] on 09/25 Charges/Coding Visit Charges Inpatient E&M: 26773 Subs Hosp L2 09/24/24 1226 <Electronically signed by Froy Jopperi DO> Cosigner Signature (if applicable): CC: ~ Signed [facility] Work Phone: 1(711) 717-739806-05-2025 Progress note [facility] Medical Records Department [address] [place] [address] Progress Note - Hospitalist 09/24/24 0809 MR#: [id number] Acct: [id number] Name: AIDEN FIELDS Rep #:[id number] : 1945 78 From: Froy Velázquez DO PCP: Dr. Erica Richardson, DO Status:ADM IN Location: [place] [address] Reason for Visit Reason for Visit: Diagnoses [...] on 09/25 Charges/Coding Visit Charges Inpatient E&M: 10694 Subs Hosp L2 09/24/24 1226 Cosigner Signature (if applicable): CC: ~ Signed [facility]06-04-2025 Progress note Author Froy Velázquez [facility] Note Date/Time September 23, 2024 3:21p m [facility] Medical Records Department [address] [place] [address] Progress Note - Hospitalist 09/23/24 0816 MR#: [id number] Acct: [id number] Name: AIDEN FIELDS Rep #:[id number] : 1945 78 From: Froy Velázquez DO PCP: Dr. Erica Richardson, DO Status:ADM IN Location: [place] [address] Reason for Visit Reason for Visit: Diagnoses [...] (Auto) 69.5, Lymph % (Auto) 18.8 L, [place] % (Auto) 7.5, Eos % (Auto) 2.9, [...] Clarity Cancelled, Urine pH Cancelled, Ur Specific [place] Cancelled, U Specif Grav (Refrac) Cancelled, Urine [...] Clarity Cloudy, Urine pH 5.0, Ur Specific [place] 1.015, Urine Protein 15 H, Urine Glucose [...] (Auto) 70.6 H, Lymph % (Auto) 16.2 L,[place] % (Auto) 9.6, Eos % (Auto) 2.4, [...] IMPRESSION: No acute intracranial abnormality. Reading Location: [id number] Chest X-Ray 09/22/24 20:55 IMPRESSION: No acute cardiopulmonary abnormalities. Reading Location: [id number] Physical Exam Const alert and no apparent [...] prophylaxis: LMWH Charges/Coding Visit Charges Inpatient E&M: 77572 Subs Hosp L2 09/23/24 1521 <Electronically signed by Froy Velázquez DO> Cosigner Signature (if applicable): CC: ~ Signed [facility] Work Phone: 1(250) 537-509306-04-2025 Progress note [facility] Medical Records Department [address] [place] [address] Progress Note - Hospitalist 09/23/24 0816 MR#: [id number] Acct: [id number] Name: AIDEN FIELDS Rep #:[id number] : 1945 78 From: Froy Velázquez DO PCP: Dr. Erica Richardson DO Status:ADM IN [id number] Reason for Visit Reason for Visit: [...] (Auto) 69.5, Lymph % (Auto) 18.8 L, [place] % (Auto) 7.5, Eos % (Auto) 2.9, [...] Clarity Cancelled, Urine pH Cancelled, Ur Specific [place] Cancelled, U Specif Grav (Refrac) Cancelled, Urine [...] Clarity Cloudy, Urine pH 5.0, Ur Specific [place] 1.015, Urine Protein 15 H, Urine Glucose [...] (Auto) 70.6 H, Lymph % (Auto) 16.2 L,[place] % (Auto) 9.6, Eos % (Auto) 2.4, [...] IMPRESSION: No acute intracranial abnormality. Reading Location: [place] [address] Chest X-Ray 09/22/24 20:55 IMPRESSION: No acute cardiopulmonary abnormalities. Reading Location: [place] [address] Physical Exam Const alert and no apparent [...] prophylaxis: LMWH Charges/Coding Visit Charges Inpatient E&M: 87203 Subs Hosp L2 09/23/24 1521 Cosigner Signature (if applicable): CC: ~ Signed [facility]06-04-2025 History and physical note Author Aggie Bolton [facility] Note Date/Time September 23, 2024 12:18 am [facility] Medical Records Department [address] [place] [address] H&P Exam - Hospitalist 09/22/24 0524 MR#: [id number] Acct: [id number] Name: AIDEN FIELDS Rep #:[id number] : 1945 78 From: Aggie Bolton MD PCP: Dr. Erica Richardson, DO Status:ADM IN Location: [place] [id number] 1 HPI - General General Date of Admission: [...] history Chronic anemia who presents to the [facility] ED on 09/22/2024 with history of [...] Neosporin Allergy Unknown Unknown Verified 09/22/24 20:06 (zsi-mzf-ilmtw)) neomycin (From Neosporin Allergy Unknown Unknown Verified 09/22/24 20:06 (cgs-iep-cqfua)) polymyxin B (From Neosporin Allergy Unknown Unknown Verified 09/22/24 20:06 (gsc-gyh-smhus)) Antihistamines - Alkylamine Allergy PT UNSURE Verified [...] (Auto) 69.5, Lymph % (Auto) 18.8 L, [place] % (Auto) 7.5, Eos % (Auto) 2.9, [...] Clarity Cancelled, Urine pH Cancelled, Ur Specific [place] Cancelled, U Specif Grav (Refrac) Cancelled, Urine [...] Clarity Cloudy, Urine pH 5.0, Ur Specific [place] 1.015, Urine Protein 15 H, Urine Glucose [...] IMPRESSION: No acute intracranial abnormality. Reading Location: [place] [address] Chest X-Ray 09/22/24 20:55 IMPRESSION: No acute cardiopulmonary abnormalities. Reading Location: [place] [address] Assessment & Plan Assessment/Plan (1) UTI (urinary tract infection): PLAN: Plan The patient is a 78 y/o F w/ PMHx: HTN, Anxiety and Depression/Mood disorder, Former tobacco use, Former chart reported history EtOH abuse, Hx Frequent falls,Rheumatoid arthritis, Hypothyroidism s/p prior thyroidectomy, GERD, Hx Breast CAunclear type s/p mastectomy in remission, Chart reported history Chronic anemia who presents to the [facility] ED on 09/22/2024 with history of [...] her daughter is her healthcare power of attorney at law and patient is a full code. Charges/Coding Visit Charges Inpatient E&M: 21038 Init Hosp L3 09/23/24 0018 <Electronically signed by Aggie Bolton MD> Cosigner Signature (if applicable): CC: Dr. Aggie Bolton MD; Dr. Erica Richardson, ~ Signed [facility] Work Phone: 1([phone]) 463-114306-04-2025 Discharge summary [facility] Note Date/Time September 22, 2024 10:46 pm [facility] Medical Records Department [address] [place] [address] Emergency Department Summary 09/22/24 MR#: [id number] Acct: [id number] Name: AIDEN FIELDS Rep #:[id number] : 1945 78 From: Alexis Quijano MD [...] 12 hours which is unusual for her. [facility] Medical History Anxiety and depression Hypoparathyroidism [...] gram tablet 1,000 mg PO DAILY SHINGLES 04/12/21 08/03/23 History dexamethasone sodium phosphate 0.1 1 drp [...] Neosporin Allergy Unknown Unknown Verified 09/22/24 20:06 (yad-qwf-hacdg)) neomycin (From Neosporin Allergy Unknown Unknown Verified 09/22/24 20:06 (bcx-iyw-gqjsf)) polymyxin B (From Neosporin Allergy Unknown Unknown Verified 09/22/24 20:06 (tbo-qzl-fgwal)) Antihistamines - Alkylamine Allergy PT UNSURE Verified [...] (Auto) 69.5 Lymph % (Auto) 18.8 L [place] % (Auto) 7.5 Eos % (Auto) 2.9 [...] Cloudy Urine pH Cancelled 5.0 Ur Specific [place] Cancelled 1.015 U Specif Grav (Refrac) Cancelled [...] IMPRESSION: No acute intracranial abnormality. Reading Location: [place] [address] Chest X-Ray 09/22/24 20:55 IMPRESSION: No acute cardiopulmonary abnormalities. Reading Location: [place] [address] Management Discussion w/another healthcare provider: Hospitalist (Dr. Bolton) Discharge Plan Dx/Rx/DC Orders Clinical Impression: Generalized weakness, Fatigue, Unable to ambulate, UTI (urinary tract infection), Elevated CPK Disposition Disposition: [facility] What to do if you have Problems For any increased pain, shortness of breath, bleeding, nausea or vomiting, chestpain, or any unexpected problems, contact your Primary Care Provider. Call [facility] ([phone]) or report to the closest Emergency Room. Call 911 if necessary. 09/22/242245 <Electronically signed by Alexis Quijano MD> Cosigner Signature (if applicable): CC: Dr. Erica Richardson, DO ~ Signed [facility] Work Phone: [phone]) 148-631206-04-2025 Evaluation note* Diagnosis Onset Date Resolution Status Admit Date Debility acute September 22, 2024 10:45pm Elevated CPK acute September 22 10:45pm Fatigue acute September 22, 2024 10:45pm Generalized weakness acute September 22, 2024 10:45pm Unable to ambulate acute September 222024 10:45pm UTI (urinary tract infection) acute September 22, 2024 10:45pm [facility] Work Phone: 1(751) 636-562406-04-2025 Evaluation note* Diagnosis Onset Date Resolution Status Admit Date Debility acute September 22, 2024 10:45pm Elevated CPK resolved September 22 10:45pm Fatigue resolved September 22, 2024 10:45pm Generalized weakness resolved September 22, 2024 10:45pm Unable to ambulate resolved September 222024 10:45pm UTI (urinary tract infection) resolv ed September 22, 2024 10:45pm [facility] Work Phone: 1(350) 654-170806-04-2025 History and physical note [facility] Medical Records Department [address] [place] [address] H&P Exam - Hospitalist 09/22/24 2244 MR#: [id number] Acct: [id number] Name: LIVEMARIELENAAIDEN Consuelo Rep #:[id number] : 1945 78 From: Aggie Bolton MD PCP: Dr. Erica Richardson, DO Status:ADM IN Location: [place] [address] HPI - General General Date of Admission: [...] history Chronic anemia who presents to the [facility] ED on 09/22/2024 with history of [...] and Rocephin 1 g IV x 1. [facility] Medical History Anxiety and depression Hypoparathyroidism [...] mg tablet 25 mg PO TID Dizziness 08/03 /23 08/03/23 History memantine 5 mg tablet 5 mg [...] Neosporin Allergy Unknown Unknown Verified 09/22/24 20:06 (jpv-uri-iqury)) neomycin (From Neosporin Allergy Unknown Unknown Verified 09/22/24 20:06 (bdt-ehb-rrdcx)) polymyxin B (From Neosporin Allergy Unknown Unknown Verified 09/22/24 20:06 (yjb-zsy-fvvmz)) Antihistamines - Alkylamine Allergy PT UNSURE Verified [...] (Auto) 69.5, Lymph % (Auto) 18.8 L, [place] % (Auto) 7.5, Eos % (Auto) 2.9, [...] Clarity Cancelled, Urine pH Cancelled, Ur Specific [place] Cancelled, U Specif Grav (Refrac) Cancelled, Urine [...] Clarity Cloudy, Urine pH 5.0, Ur Specific [place] 1.015, Urine Protein 15 H, Urine Glucose [...] IMPRESSION: No acute intracranial abnormality. Reading Location: [id number] Chest X-Ray 09/22/24 20:55 IMPRESSION: No acute cardiopulmonary abnormalities. Reading Location: [id number] Assessment & Plan Assessment/Plan (1) UTI (urinary tract infection): PLAN: Plan The patient is a 78 y/o F w/ PMHx: HTN, Anxiety and Depression/Mood disorder, Former tobacco use, Former chart reported history EtOH abuse, Hx Frequent falls,Rheumatoid arthritis, Hypothyroidism s/p prior thyroidectomy, GERD, Hx Breast CAunclear type s/p mastectomy in remission, Chart reported history Chronic anemia who presents to the [facility] ED on 09/22/2024 with history of [...] full code. Charges/Coding Visit Charges Inpatient E&M: 34994 Init Hosp L3 09/23/24 0018 Cosigner Signature (if applicable): CC: Dr. Aggie Bolton MD; Dr. Erica Richardson DO~ Signed [facility]06-03-2025 Discharge summary [facility] Medical Records Department [address] [place] [address] Emergency Department Summary 09/22/24 MR#: [id number] Acct: [id number] Name: AIDEN FIELDS Rep #:[id number] : 1945 78 From: Alexis Quijano MD [...] 12 hours which is unusual for her. [facility] Medical History Anxiety and depression Hypoparathyroidism [...] Neosporin Allergy Unknown Unknown Verified 09/22/24 20:06 (sug-emr-wxbvr)) neomycin (From Neosporin Allergy Unknown Unknown Verified 09/22/24 20:06 (cey-lqz-liqee)) polymyxin B (From Neosporin Allergy Unknown Unknown Verified 09/22/24 20:06 (ngp-gwg-kbudu)) Antihistamines - Alkylamine Allergy PT UNSURE Verified [...] of 11.6 which I think is nonspecific, zqohvpkjgx78.2, hematocrit 39.5, platelet count normal at259. Potassium [...] (Auto) 69.5 Lymph % (Auto) 18.8 L [place] % (Auto) 7.5 Eos % (Auto) 2.9 [...] Cloudy Urine pH Cancelled 5.0 Ur Specific [place] Cancelled 1.015 U Specif Grav (Refrac) Cancelled [...] IMPRESSION: No acute intracranial abnormality. Reading Location: [id number] Chest X-Ray 09/22/24 20:55 IMPRESSION: No acute cardiopulmonary abnormalities. Reading Location: [place] [address] Management Discussion w/another healthcare provider: Hospitalist (Dr. Bolton) Discharge Plan Dx/Rx/DC Orders Clinical Impression: Generalized weakness, Fatigue, Unable to ambulate, UTI (urinary tract infection), Elevated CPK Disposition Disposition: [facility] What to do if you have Problems For any increased pain, shortness of breath, bleeding, nausea or vomiting, chestpain, or any unexpected problems, contact your Primary Care Provider. Call [facility] ([phone]) or report tothe closest Emergency Room. Call 911 if necessary. 09/22/240 Cosigner Signature (if applicable): CC: Dr. Erica Richardson DO ~ Signed [facility]06-03-2025 Radiology Diagnostic study note [facility] Imaging Services [address] [place], [place] [id number] Chest 1 View (Portable) MR#: [id number] Acct: [id number] Name: AIDEN FIELDS Rep #: [id number] : 1945 F 78 From: Gui Mullen MD PCP: Dr. Erica Richardson DO Status: REG ER Study:Chest 1 View (Portable) Date of Exam: 09/22/24 Exam# [id number] Ordering Dr: Alexis Quijano MD PROCEDURE: CHEST 1 VIEW (PORTABLE) 09/22/2024 REASON FOR EXAM: SHORTNESS OF BREATH TECHNIQUE: Frontal view of the chest. COMPARISON: 07/04/2024. FINDINGS: The heart is normal in size. Right chest Port-A-Cath. The lungs are clear. Right humeral plate and screw fixation. Left rib plate and screw fixation. RAD/Chest 1 View (Portable) IMPRESSION: No acute cardiopulmonary abnormalities. Reading Location: [place] [address] CC: Dr. Alexis Quijano MD; Dr. Erica Richardson DO ~ Bender Machine: Signed [facility]-03-2025 Radiology Diagnostic study note [facility] Imaging Services [address] [place], [place] [address] Brain/Head without Contrast MR#: [id number] Acct: [id number] Name: AIDEN FIELDS Rep #: [id number] : 1945 F 78 From: Gui Mullen MD PCP: Dr. Erica Richardson DO Status: REG ER Study:Brain/Head without Contrast Date of Exa m: 09/22/24 Exam# [id number] Ordering Dr: Alexis Quijano MD PROCEDURE: BRAIN/HEAD [...] mGy DLP: 897.35 mGycm COMPARISON: 08/20/2023. FINDINGS: Gvwubfqf-wd-zcwaec global parenchymal atrophy. Periventricular white matter hypodensity likely representing chronic microvascular ischemia. No evidence of acute hemorrhage or infarction. No extra- axial blood or fluid collections. The paranasal sinuses are clear. The mastoid air cells are well aerated. The calvarial vault and skull base are intact. CT/Brain/Head without Contrast IMPRESSION: No acute intracranial abnormality. Reading Location: [id number] CC: Dr. Alexis Quijano MD; Dr. Erica Richardson DO ~ Bender Machine: Signed [facility]06-03-2025 Evaluation note* Diagnosis Onset Date Resolution Status Admit Date Elevated CPK acute September 22 10:45pm Fatigue acute September 22, 2024 10:45pm Generalized weakness acute September 22, 2024 10:45pm Unable to ambulate acute September 222024 10:45pm UTI (urinary tract infection) acute September 22, 2024 10:45pm [facility] Work Phone: 1(842) 338-474603-15-2025 Radiology Diagnostic study note [facility] Imaging Services [address] [place], [place] [id number] Chest PA and Lateral MR#: [id number] Acct: [id number] Name: LIVEMARIELENAAIDEN B Rep #: [id number] : 1945 F 78 From: Abhi Carrington DO PCP: Dr. Erica Richardson DO Status: REG ER Study:Chest PA and Lateral Date of Exam: 07/04/24 Exam# [id number] Ordering Dr: Froy Cameron DO PROCEDURE: CHEST [...] abnormality. Reading Location: [place] CC: Dr. Froy Cameron, DO; Dr. Erica Richardson DO ~ Bender Machine: Signed [facility]04-30-2024 Discharge summary Author Seb Bautista [facility] August 20, 2023 4:47pm Note Date/Time August 20, 2023 1:0 3pm [facility] Medical Records Department [address] [place] [address] Emergency Department Summary 08/20/23 MR#: [id number] Acct: [id number] Name: LIVEMARIELENAAIDEN Rep #:[id number] : 1945 77 From: Seb Nguyen PCP: [...] Unknown Unknown Verified 08/20/23 12:28 [From Neosporin (ozw-rod-taeqi)] neomycin Allergy Unknown Unknown Verified 08/20/23 12:28 [From Neosporin (oct-uyi-rnhfc)] polymyxin B Allergy Unknown Unknown Verified 08/20/23 12:28 [From Neosporin (kmc-lbq-jgyth)] Antihistamines - Alkylamine Allergy PT UNSURE Verified [...] Oxygen Delivery Method Room Air Room Air [facility] MDM Narrative Medical decision making narrative: HISTORY [...] History obtained from others: none Consults: none [facility] Narrative: The patient was hemodynamically stable, afebrile [...] Discharge home This note was generated with [employer] dictation software. It may contain incorrectwords, spelling, [...] your Primary Care Provider. Call [facility] ([phone]) or report to the closest Emergency Room. Call 911 if necessary. 08/20/23 1647 <Electronically signed by Seb Bautista DO> Cosigner Signature (if applicable): CC: Dr. Erica Richardson DO ~ Signed [facility] Work Phone: 1([phone]) 120-696801-30-2024 Consult note Author Aryan Harris [facility] May 21, 2023 10:55am Note Date/Time May 21, 2023 1 0:56am [facility] Medical Records Department [address] [place] [address] Counseling Note - Pharmacy 05/21/23 1055 MR#: [id number] Acct: [id number] Name: AIDEN FIELDS Rep #:[id number] : 1945 77 From: Aryan Harris PCP: Dr. Erica Richardson DO Status:ADM IN Y Location: [facility] IT311-8 Pharmacy [facility] Service has performed discharge medication reconciliation [...] Signature (if applicable): Date CC: ~ Signed [facility] Work Phone: 1(242) 690-353601-30-2024 Discharge summary Author Froy Velázquez [facility] May 21, 2023 10:34am Note Date/Time May 21, 2023 1 0:31am [facility] Medical Records Department [address] [place] [address] Discharge Summary 05/21/23 1030 MR#: [id number] Acct: [id number] Name: AIDEN FIELDS Rep #:[id number] : 1945 77 From: Froy Velázquez DO PCP: Dr. Erica Richardson DO Status:ADM IN Location: [place] 404854-1 Providers Date of Admission: 05/19/23 Primary Care [...] with rheumatology as needed. DC home with [facility]. Medications at Discharge Home Medications potassium [...] Health Service Charges/Coding Visit Charges Inpatient E&M: 19775 Disch Hosp >30min 05/21/23 1034 <Electronically signed by Froy Velázquez DO> Cosigner Signature (if applicable): CC: Dr. Froy Velázquez DO; Dr. Erica Richardson DO~ Signed [facility] Work Phone: 1(280) 845-891501-30-2024 Progress note Author Froy Velázquez [facility] May 21, 2023 10:30am Note Date/Time May 21, 2023 8 :27am [facility] Medical Records Department [address] [place] [address] Progress Note - Hospitalist 05/21/23 0823 MR#: [id number] Acct: [id number] Name: AIDEN FIELDS Rep #:[id number] : 1945 77 From: Froy Velázquez DO PCP: Dr. Erica Richardson, DO Status:ADM IN Location: MS3 VC577-4 Reason for Visit Reason for Visit: Diagnoses [...] with rheumatology as needed. DC home with [facility]. 05/21/23 1030 <Electronically signed by Froy Jopperi DO> Cosigner Signature (if applicable): CC: ~ Signed [facility] Work Phone: 1(672) 533-715401-29-2024 Progress note Author Froy Velázquez [facility] May 20, 2023 2:08pm Note Date/Time May 20, 2023 9 :07am [facility] Medical Records Department [address] [place] [address] Progress Note - Hospitalist 05/20/23 0900 MR#: [id number] Acct: [id number] Name: AIDEN FIELDS Rep #:[id number] : 1945 77 From: Froy Velázquez DO PCP: Dr. Erica Richardson, Status:ADM IN Location: [facility] JF598-1 Subjective Subjective Feels well. No issues overnight. [...] 76.9 H, Lymph % (Auto) 9.6 L, [place] % (Auto) 10.8 H, Eos % (Auto) 1.6, Baso % (Auto) 0.5, Absolute Neuts (auto) 14.5 H, Absolute Lymphs (auto) 1.81, Nucleated RBC % 0, Differential Comment SCANNED, Diff Path Review August foll, Sodium 142, Potassium 3.5, Chloride 113 H, [...] Hand Blood Culture - Preliminary GNR lactose entry specialist 05/19/23 00:00 Urine, Clean Catch Legionella Antigen [...] prophylaxis: Heparin. Charges/Coding Visit Charges Inpatient E&M: 13558 Subs Hosp L2 05/20/23 8427 <Electronically signed by Froy Velázquez DO> Cosigner Signature (if applicable): CC: ~ Signed [facility] Work Phone: 1(771) 653-111901-28-2024 Progress note Author Vernon Alcantaraabdirahman [facility] May 19, 2023 8:02am Note Date/Time May 19, 2023 7 :06am [facility] Medical Records Department [address] [place] [address] Progress Note 05/19/23 0706 MR#: [id number] Acct: [id number] Name: AIDEN FIELDS Rep #:[id number] : 1945 77 From: Vernon Osman MD PCP: Dr. Erica Richardson, DO Status:ADM IN [facility] Progress Note Patient is a 77-year-old lady admitted with acute metabolic encephalopathy secondary to acute kidney injury, acute cystitis as well as suspected aspirationpneumonia. Patient admitted to regular nursing floor for subsequent management Patient seen and examined, initial assessment including history and physical diagnostic data and management orders reviewed will follow. 05/19/23 08 <Electronically signed by Vernon Osman MD> Vernon Osman MD Cosigner Signature (if applicable): CC: ~ Signed [facility] Work Phone: 1(532) 689-973701-28-2024 Discharge summary Author Jorge Cardona [facility] May 19, 2023 2:16am Note Date/Time May 19, 2023 1 2:30am [facility] Medical Records Department [address] [place] [address] Emergency Department Summary 05/19/23 MR#: [id number] Acct: [id number] Name: AIDEN FIELDS Rep #:[id number] : 1945 77 From: Jorge Cardona MD [...] hypoxia due to rhinovirus.) Recent Illness/Hospitalization: [facility] Medical History (Updated 05/19/23 @ 02:16 [...] Unknown Unknown Verified 05/18/23 23:29 [From Neosporin (ulp-ing-wraek)] neomycin Allergy Unknown Unknown Verified 05/18/23 23:29 [From Neosporin (cbc-tzy-zkmdq)] polymyxin B Allergy Unknown Unknown Verified 05/18/23 23:29 [From Neosporin (wwb-pez-lppjp)] Antihistamines - Alkylamine Allergy PT UNSURE Verified [...] 89.8 H Lymph % (Auto) 6.3 L [place] % (Auto) 2.4 Eos % (Auto) 0.3 [...] Clarity Cloudy Urine pH 6.0 Ur Specific [place] 1.010 Urine Protein 100 H Urine Glucose [...] follows: Interpretation: Sinus Tachycardia (Rate is 111. ID interval is 114 ms. Cures duration 70 ms. QT duration is 298 ms. [place] is normal. Computer is reading ST-T wave [...] with treatment for hypertension), Discussing w/Patient &/or Family/Bus And Rail Operator, Discussing w/Consultants and Arranging Admission or Transfer Discharge Plan Dx/Rx/DC Orders Clinical Impression: Acute hypoxic respiratory failure, Pyuria, SIRS (systemic inflammatory responsesyndrome), Encephalopathy due to infection, Ketosis, Acute hypotension, Creatinine elevation Disposition Disposition: [facility] What to do if you have Problems For any increased pain, shortness of breath, bleeding, nausea or vomiting, chestpain, or any unexpected problems, contact your Primary Care Provider. Call [facility] ([phone]) or report to the closest Emergency Room. Call 911 if necessary. 05/19/23215 <Electronically signed by Jorge Cardona MD> Cosigner Signature (if applicable): CC: Dr. Erica Richardson, DO ~ Signed [facility] Work Phone: 1(776) 902-515501-28-2024 History and physical note Author Aggie Botlon [facility] May 19, 2023 1:45am Note Date/Time May 19, 2023 1 :39am [facility] Medical Records Department [address] [place] [address] H&P Exam - Hospitalist 05/19/23 0135 MR#: [id number] Acct: [id number] Name: AIDEN FIELDS Rep #:[id number] : 1945 77 From: Aggie Bolton MD [...] of prior records who presents to the [facility] ED on 05/19/23 with significant encephalopathy [...] and azithromycin 500 mg IV x 1. [facility] Medical History (Updated 05/19/23 @ 01:44 [...] Unknown Unknown Verified 05/18/23 23:29 [From Neosporin (mjw-ftx-hwvwk)] neomycin Allergy Unknown Unknown Verified 05/18/23 23:29 [From Neosporin (uwm-gvb-uhrve)] polymyxin B Allergy Unknown Unknown Verified 05/18/23 23:29 [From Neosporin (qtl-cxu-pqjhe)] Antihistamines - Alkylamine Allergy PT UNSURE Verified [...] 89.8 H, Lymph % (Auto) 6.3 L, [place] % (Auto) 2.4, Eos % (Auto) 0.3, [...] Urine Clarity Cloudy, Urine pH6.0, Ur Specific [place] 1.010, Urine Protein 100 H, Urine Glucose [...] Signed: Eliel Christensen DO at 0:46 EST Reading Location ID and State: [facility] / [place] Tel , Service support , Assessment & Plan Assessment/Plan (1) Encephalopathy due to infection: PLAN: Plan The patient is a 74 y/o F w/ PMHx: Dementia unclear type with unclear behavioraldisturbance history, Chronic anemia, Hx Breast CA s/p mastectomy, HTN, HLD, Rheumatoid arthritis, Hypothyroidism, Anxiety and Depression, EtOH abuse/Polysubstance dependency including BZD/opiates per review of prior recordswho presents to the [facility] ED on 05/19/23 with significant encephalopathy [...] prophylaxis: Heparin. Charges/Coding Visit Charges Inpatient E&M: 53261 Init Hosp L3 05/19/23 0145 <Electronically signed by Aggie Bolton MD> Cosigner Signature (if applicable): CC: Dr. Aggie Bolton MD; Dr. Erica Richardson, DO~ Signed [facility] Work Phone: 1(387) 253-548001-28-2024 Discharge summary Author Jorge Cardona [facility] May 19, 2023 2:16am Note Date/Time May 19, 2023 1 2:30am [facility] Medical Records Department [address] [place] [address] Emergency Department Summary 05/19/23 MR#: [id number] Acct: [id number] Name: AIDEN FIELDS Rep #:[id number] : 1945 77 From: Jorge Cardona MD [...] hypoxia due to rhinovirus.) Recent Illness/Hospitalization: No [facility] Medical History (Updated 05/19/23 @ 02:16 [...] gram tablet 1,000 mg PO DAILY SHINGLES 04/12/21 [History Last Taken 11/22/22] dexamethasone sodium phosphate [...] Unknown Unknown Verified 05/18/23 23:29 [From Neosporin (ltg-llt-otyqf)] neomycin Allergy Unknown Unknown Verified 05/18/23 23:29 [From Neosporin (roc-yhv-iafhu)] polymyxin B Allergy Unknown Unknown Verified 05/18/23 23:29 [From Neosporin (nnu-yur-xpmaw)] Antihistamines - Alkylamine Allergy PT UNSURE Verified [...] 89.8 H Lymph % (Auto) 6.3 L [place] % (Auto) 2.4 Eos % (Auto) 0.3 [...] Clarity Cloudy Urine pH 6.0 Ur Specific [place] 1.010 Urine Protein 100 H Urine Glucose [...] of acute cardiopulmonary disease. Electronically Signed: Eliel ChristensenDO at 0:46 EST Reading Location ID and State: [facility] / [place] Tel , Service support , Radiology report was reviewed. Rhythm Strip Rhythm Strip: Sinus Tach Rate: 119 EKG Initial EKG: Attestation: I personally reviewed and interpreted this EKG as follows: Interpretation: Sinus Tachycardia (Rate is 111. ID interval is 114 ms. Cures duration 70 ms. QT duration is 298 ms. [place] is normal. Computer is reading ST-T wave [...] with treatment for hypertension), Discussing w/Patient &/or Family/Bus And Rail Operator, Discussing w/Consultants and Arranging Admission or Transfer Discharge Plan Dx/Rx/DC Orders Clinical Impression: Acute hypoxic respiratory failure, Pyuria, SIRS (systemic inflammatory responsesyndrome), Encephalopathy due to infection, Ketosis, Acute hypotension, Creatinine elevation Disposition Disposition: [facility] What to do if you have Problems For any increased pain, shortness of breath, bleeding, nausea or vomiting, chestpain, or any unexpected problems, contact your Primary Care Provider. Call [facility] ([phone]) or report to the closest Emergency Room. Call 911 if necessary. 05/19/23 0216 <Electronically signed by Jorge Cardona MD> Cosigner Signature (if applicable): CC: Dr. Erica Richardson DO ~ Signed [facility] Work Phone: 1(472) 595-501612-12-2023 NoteHNO ID: [id number] Author: Radha Suarez RN Service: ? Author Type: Registered Nurse Type: Progress Notes Filed: 04/02/2023 2:59 PM Note Text: Patient is here for IVAD port flush per [facility] protocol. IVAD is located in right upper chest. Site cleansed with Chloraprep IVAD accessed with a #20 gauge 3/4 non-coring Gripper needle Blood Return: Good Flushed with: 20 ml Normal Saline and 5 ml Heparin Lock Flush Non-coring needle removed. Paper tape applied to puncture site. Port site negative for redness, edema or tenderness. Patient tolerated procedure well.[facility]08-04-2023 Miscellaneous Notes* Telephone Encounter - Melissa Sprague [...] as discussed during visit. documented in this encounterWhite Hospital08-03-2023 History and physical note Author Bandar Chanel [facility] November 22, 2022 7:40pm Note Date/Time November 22, 2022 6:0 8pm [facility] Medical Records Department [address] [place] [address] H&P Exam - Hospitalist 11/22/22 1804 MR#: [id number] Acct: [id number] Name: AIDEN FIELDS Rep #:[id number] : 1945 77 From: Bandar Mckenna PCP: Dr. Erica Richardson, DO Status:ADM MAXIME Location: [place] [address] HPI - General General Date of Admission: 11/22/22 Date of Service: 11/22/22 Chief Complaint: Progressive worsening of for about 1 month HPI Narrative AIDEN LIVEMARIELENA, is a 77 F who came to [...] lobe most likely due to prior radiation. [facility] Medical History Alcohol abuse Alcohol intoxication [...] Unknown Unknown Verified 11/22/22 12:44 [From Neosporin (nyi-uok-zjspo)] neomycin Allergy Unknown Unknown Verified 11/22/22 12:44 [From Neosporin (ivt-uds-pcnic)] polymyxin B Allergy Unknown Unknown Verified 11/22/22 12:44 [From Neosporin (opt-ysp-bzhoa)] Antihistamines - Alkylamine Allergy PT UNSURE Verified [...] (Auto) 64.5, Lymph % (Auto) 15.4 L, [place] % (Auto) 12.3 H, Eos % (Auto) [...] shock if needed Total time spent in fpwb-qc-zfnw encounter in discussion of advanced directive 17 [...] (Auto) 64.5, Lymph % (Auto) 15.4 L, [place] % (Auto) 12.3 H, Eos % (Auto) [...] EDT , Charges/Coding Visit Charges Inpatient E&M: 66847 Init Hosp L3 Procedures Hospitalists Procedures: 19923 Advncd Care Plan 30 Min 11/22/221939 <Electronically signed by Bandar Chanel MD> Cosigner Signature (if applicable): CC: Dr. Erica Richardson DO; Dr. Bandar Chanel MD~ Signed [facility] Work Phone: 1(888) 785-870008-03-2023 Discharge summary Author Katie Randle [facility] November 22, 2022 4:54pm Note Date/Time November 22, 2022 1:0 9pm [facility] Medical Records Department [address] [place] [address] Emergency Department Summary 11/22/22 MR#: [id number] Acct: [id number] Name: AIDEN FIELDS Rep #:[id number] : 1945 77 From: Katie Nguyen PCP: [...] other complaints or concerns at this time. [facility] Medical History Alcohol abuse Alcohol intoxication [...] Unknown Unknown Verified 11/22/22 12:44 [From Neosporin (icq-vir-chlnh)] neomycin Allergy Unknown Unknown Verified 11/22/22 12:44 [From Neosporin (tjg-jam-vhgyc)] polymyxin B Allergy Unknown Unknown Verified 11/22/22 12:44 [From Neosporin (dns-xcv-bgtdb)] Antihistamines - Alkylamine Allergy PT UNSURE Verified [...] (Auto) 64.5 Lymph % (Auto) 15.4 L [place] % (Auto) 12.3 H Eos % (Auto) [...] Provider] - Disposition Disposition: [facility] What to do if you have Problems For any increased pain, shortness of breath, bleeding, nausea or vomiting, chestpain, or any unexpected problems, contact your Primary Care Provider. Call [facility] ([phone]) or report to the closest Emergency Room. Call 911 if necessary. 11/22/22 1654 <Electronically signed by Ktaie Randle DO> Cosigner Signature (if applicable): CC: Dr. Erica Richardson DO ~ Signed [facility] Work Phone: 1(285) 703-297508-03-2023 Discharge summary Author Katie [facility] November 22, 2022 4:54pm Note Date/Time November 22, 2022 1:0 9pm [facility] Medical Records Department [address] [place] [address] Emergency Department Summary 11/22/22 MR#: [id number] Acct: [id number] Name: AIDEN FIELDS Rep #:[id number] : 1945 77 From: Katie Nguyen PCP: [...] other complaints or concerns at this time. [facility] Medical History Alcohol abuse Alcohol intoxication [...] Unknown Unknown Verified 11/22/22 12:44 [From Neosporin (ygp-opv-qvjyf)] neomycin Allergy Unknown Unknown Verified 11/22/22 12:44 [From Neosporin (luo-pju-plsgp)] polymyxin B Allergy Unknown Unknown Verified 11/22/22 12:44 [From Neosporin (esu-ojc-cttny)] Antihistamines - Alkylamine Allergy PT UNSURE Verified [...] (Auto) 64.5 Lymph % (Auto) 15.4 L [place] % (Auto) 12.3 H Eos % (Auto) [...] Provider] - Disposition Disposition: [facility] What to do if you have Problems For any increased pain, shortness of breath, bleeding, nausea or vomiting, chestpain, or any unexpected problems, contact your Primary Care Provider. Call [facility] ([phone]) or report to the closest Emergency Room. Call 911 if necessary. 11/22/22 1654 <Electronically signed by Katie Randle DO> Cosigner Signature (if applicable): CC: Dr. Erica Richardson DO ~ Signed [facility] Work Phone: 1(390) 689-762708-03-2023 History of Present illness Narrative* Katarzyna Nance, [...] IV DATA: Not applicable SIGNED BY: RT Connor(Ashlie) November 22, 2022 12:08 PM documented in this encounterWhite Hospital08-03-2023 NoteHNO ID: [id number] Author: Katarzyna Nance RT(R) Service: Radiology Author [...] RT(R) November 22, 2022 12:08 [facility]08-03-2023 NoteHNO ID: [id number] Author: Eliel Blount APRN.SNAILER Service: ? Author Type: Nurse Practitioner Type: [...] - Alkylamine, Benadryl [Diphenhydramine Hcl], and Neosporin [Pfulnvsm-Wmvelexecg-Aplbjzbap] MEDICATIONS oxyCODONE IR (ROXICODONE) 5 mg immediate [...] breath, wheezing and stridor. (more content not included)...[facility]08-03-2023 History of Present illness Narrative* Eliel Blount APRN.[facility] - 11/22/2022 11:57 AM EDT Subjective [...] - Alkylamine, Benadryl [Diphenhydramine Hcl], and Neosporin [Catcdako-Kronxqtukk-Xywoofxil] MEDICATIONS oxyCODONE IR (ROXICODONE) 5 mg immediate [...] agrees with plan of care. Eliel Blount APRN.SNAILER documented in this encounterWhite Hospital03-24-2023 History of Present illness Narrative* John Erazo RN - 07/13/2022 7:40 AM EDT Patient is here for IVAD port flush per [facility] protocol. IVAD is located in right upper chest. Site cleansed with Chloraprep IVAD accessed with a #20 gauge 3/4 non-coring Gripper needle Blood Return: Good Flushed with: 20 ml Normal Saline and 5 ml Heparin Lock Flush Non-coring needle removed. Paper tape applied to puncture site. Port site negative for redness, edema or tenderness. Patient tolerated procedure well. documented in this encounterWhite Hospital03-13-[address] Ly [facility] July 02, 2022 8:37pm Note Date/Time July 02, 2022 5:2 4pm [facility] Medical Records Department [address] [place] [address] Emergency Department Summary 07/02/22 MR#: [id number] Acct: [id number] Name: AIDEN FIELDS Rep #:[id number] : 1945 76 From: Sim Ly MD PCP: Dr. Erica Richardson, DO Status:REG ER Location: ED HPI History of Present Illness Chief Complaint: Fall Informant: patient and other (Healthcare logging assistant) Narrative Narrative: Patient was walking in [...] and did not have palpitations or lightheadedness. [facility] Medical History Alcohol abuse Alcohol intoxication [...] Unknown Unknown Verified 07/02/22 16:16 [From Neosporin (hky-kqi-lzkfg)] neomycin Allergy Unknown Unknown Verified 07/02/22 16:16 [From Neosporin (kni-ewq-qhiyw)] polymyxin B Allergy Unknown Unknown Verified 07/02/22 16:16 [From Neosporin (cdm-kbg-pysvp)] Antihistamines - Alkylamine Allergy PT UNSURE Verified [...] She does have an appointment with her insurance administrative assistant already in about 3 days. She was [...] removal Activity Restrictions/Additional Instructions: Follow-up with your insurance administrative assistant as scheduled. Disposition Disposition: Home, Self Care What to do if you have Problems For any increased pain, shortness of breath, bleeding, nausea or vomiting, chestpain, or any unexpected problems, contact your Primary Care Provider. Call [facility] ([phone]) or report to the closest Emergency Room. Call 911 if necessary. 07/02/222036 <Electronically signed by Sim Ly MD> Cosigner Signature (if applicable): CC: Dr. Erica Richardson DO ~ Signed [facility] Work Phone: 1(197) 677-796302-24-2023 History of Present illness Narrative* Radha Suarez RN - 06/15/2022 2:42 PM EST Patient is here for IVAD port flush per [facility] protocol. IVAD is located in right upper chest. Site cleansed with Chloraprep IVAD accessed with a #20 gauge 3/4 non-coring Gripper needle Blood Return: Good Flushed with: 20 ml Normal Saline and 5 ml Heparin Lock Flush Non-coring needle removed. Paper tape applied to puncture site. Port site negative for redness, edema or tenderness. Patient tolerated procedure well. documented in this encounterWhite Hospital01-04-2023 History of Present illness Narrative* Radha Suarez RN - 04/25/2022 1:35 PM EST Patient is here for IVAD port flush per [facility] protocol. IVAD is located in right upper chest. Site cleansed with Chloraprep IVAD accessed with a #20 gauge 3/4 non-coring Gripper needle Blood Return: Good Flushed with: 20 ml Normal Saline and 5 ml Heparin Lock Flush Non-coring needle removed. Paper tape applied to puncture site. Port site negative for redness, edema or tenderness. Patient tolerated procedure well. documented in this encounterWhite Hospital09-20-2022 [facility]09-20-2022 History of Present illness Narrative* All Tsang MD - 01/09/2022 1:15 PM EDT NEUROSURGERY FOLLOW UP OFFICE NOTE Dr. All Tsang MD, [facility] Date of visit: January 09, 2022 Patient Name: Ms.Barbara John Fields Date of : 1945 Current Age: [age] year old Sex: female MRN/E# [id number] Last Office Visit: 11/03/2021 Chief Complaint: Patient presents with: Established Patient SUBJECTIVE: The patient presents as a follow-up with imaging (MRI B) for evaluation. This is a 76-year-old female with a history of breast cancer and melanoma who was seen in consult at [facility] on 10/07/[address] Delgado after a [...] in follow-up on 11/03/2021 by Sherice Rosenberg APRN.SNAILER with CT brain prompting. She reported that she was overall doing well and denied headache, visual changes, speech deficits, seizure activity. She was residing in [place] and was working with physical therapy given [...] symptoms. This note was partially generated using [employer] voice recognition system, and there may be some incorrect words, spellings, and punctuation that were not noted in checking the note before saving. documented in this encounterWhite Hospital09-15-2022 History of Present illness Narrative* Erica [...] 04, 2022 2:02 PM documented in this encounterWhite Hospital09-14-2022 Miscellaneous Notes* Telephone Encounter - Tsering Castillo - 01/03/2022 12:19 PM EDT Patient has been scheduled for port access at 1:30 pm tomorrow and I did let patient's nurse at [facility] know this, she confirmed patient's arrival time. Tsering Castillo * Telephone Encounter - KATIE Rivas - 01/03/2022 10:55 AM EDT Pt would like to use port for appt on 01/04/22 for MRI @ 1:40pm Please call pt to let them know what time to come in please documented in this encounterWhite Hospital07-15-2022 [facility]07-14-2022 [facility]07-14-2022 History of Present illness Narrative* Denys Bolden PA-C - 11/02/2021 3:17 PM EDT Images from the original note were not included. Trauma Clinic Note SERVICE DATE: 11/02/2021 Trauma Service Pager: For questions or concerns Mon-Fri 6a-5p please page [phone]. After 5pm and on Weekends and Holidays, please page [phone] if in ICU or [phone] if on RNF. SUBJECTIVE: Patient presents to the trauma clinic with her daughter. She came [place]. She is here for rib plating [...] GLF on ASA on 10/06/2021 (transfer from [place]) Traumatic Injuries: 1. Right frontal IPH 2. [...] November 02, 2021 TIME: 3:26 PM Pager: [phone] (text page) documented in this encounterWhite Hospital07-14-2022 [facility] [facility]* Patient Instructions* Denys Bolden PA-C - [...] another 2 viewchest x-ray documented in this encounterWhite Hospital07-14-2022 History of Present illness Narrative* Monik Spencer RT(R) - 11/02/2021 12:20 PM EDT Radiology Service [...] 02, 2021 12:30 PM documented in this encounterWhite Hospital07-11-2022 History of Present illness Narrative* RT [...] 30, 2021 3:21 PM documented in this encounterWhite Hospital07-01-2022 Miscellaneous Notes* Telephone Encounter - Eva Dee Pss - 10/20/2021 9:45 AM EDT Left message with day and time of scheduled follow up appointments. Eva Dee Pss documented in this encounterWhite Hospital06-28-2022 [facility]06[facility]27[facility]22 [facility]06[facility]26-2022 [facility]06-25-2022 [facility]06-24-2022 [facility]06-24-2022 [facility]06-23-2022 Note [facility]06-23-2022 Miscellaneous Notes* Telephone Encounter - Aiden Alanis LPN - 10/12/2021 4:30 PM EDT Pt's Sister Sami(a psych nurse) from [place] called to update Dr Santos or Stalin [...] psych eval. Sami can be reached at [phone] . I called and notified Stalin Grimaldo PAC who isgoing to talk to pt and the sister that is POA that is at the hospital now. BChapman SHELLY documented in this encounterWhite Hospital06-23-2022 [facility]06-22-2022 [facility]06-22-2022 [facility]06-21-2022 [facility]06-21-2022 [facility]06-21-2022 [facility]06-21-2022 Note [facility]06-20-2022 [facility] 10-09-2021 [facility]06-20-2022 [facility]06-20-2022 [facility]06-20-2022 [facility]06-20-2022 NoteHNO ID: [id number] Author: Medhat Silveira RN Service: ? Author Type: Registered Nurse Type: Nursing Progress Note Filed: 10/09/2021 2:22 AM Note Text: Pt up to bsc with assist of 1 unable to void will bladder [facility]06-19-2022 [facility]06-19-2022 [facility]06-19-2022 [facility]06-18-2022 Note 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 10/03/2012 Breast cancer 07/03/2012 02/11/2013 documented as of this encounter (statuses as of 08/01/2021) [facility] Narrative* Problem Noted Date Resolved Date 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 10/03/2012 Breast cancer 07/03/2012 02/11/2013 documented as of this encounter (statuses as of 08/29/2021) [address]28-2013 History of Past illness Narrative* Problem Noted Date Resolved Date 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 10/03/2012 Breast cancer 07/03/2012 02/11/2013 documented as of this encounter (statuses as of 10/03/2021) [address]28-2013 History of Past illness Narrative* Problem Noted Date Resolved Date 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 10/03/2012 Breast cancer 07/03/2012 02/11/2013 documented as of this encounter (statuses as of 10/11/2021) [address]28-2013 History of Past illness Narrative* Problem Noted Date Resolved Date 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 10/03/2012 Breast cancer 07/03/2012 02/11/2013 documented as of this encounter (statuses as of 10/12/2021) [place] [address]28-2013 History of Past illness Narrative* Problem Noted Date Resolved Date 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 10/03/2012 Breast cancer 07/03/2012 02/11/2013 documented as of this encounter (statuses as of 10/20/2021) [place] [address]28-2013 History of Past illness Narrative* Problem Noted Date Resolved Date 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 10/03/2012 Breast cancer 07/03/2012 02/11/2013 documented as of this encounter (statuses as of 10/31/2021) [place] [address]28-2013 History of Past illness Narrative* Problem Noted Date Resolved Date 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 10/03/2012 Breast cancer 07/03/2012 02/11/2013 documented as of this encounter (statuses as of 11/02/2021) [place] [address]28-2013 History of Past illness Narrative* Problem Noted Date Resolved Date 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 10/03/2012 Breast cancer 07/03/2012 02/11/2013 documented as of this encounter (statuses as of 11/03/2021) [place] [address]-2013 History of Past illness Narrative* Problem Noted Date Resolved Date 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 10/03/2012 Breast cancer 07/03/2012 02/11/2013 documented as of this encounter (statuses as of 01/03/2022) [facility] Narrative* Problem Noted Date Resolved Date 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 10/03/2012 Breast cancer 07/03/2012 02/11/2013 documented as of this encounter (statuses as of 01/04/2022) [place] [address]28-2013 History of Past illness Narrative* Problem Noted Date Resolved Date 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 10/03/2012 Breast cancer 07/03/2012 02/11/2013 documented as of this encounter (statuses as of 01/05/2022) [place] [address]-2013 History of Past illness Narrative* Problem Noted Date Resolved Date 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 10/03/2012 Breast cancer 07/03/2012 02/11/2013 documented as of this encounter (statuses as of 01/09/2022) [place] [address]-2013 History of Past illness Narrative* Problem Noted Date Resolved Date 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 10/03/2012 Breast cancer 07/03/2012 02/11/2013 documented as of this encounter (statuses as of 03/28/2022) [place] [address]-2013 History of Past illness Narrative* Problem Noted Date Resolved Date 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 10/03/2012 Breast cancer 07/03/2012 02/11/2013 documented as of this encounter (statuses as of 04/27/2022) [place] [address]-2013 History of Past illness Narrative* Problem Noted Date Resolved Date 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 10/03/2012 Breast cancer 07/03/2012 02/11/2013 documented as of this encounter (statuses as of 06/15/2022) [place] [address]-2013 History of Past illness Narrative* Problem Noted Date Resolved Date 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 10/03/2012 Breast cancer 07/03/2012 02/11/2013 documented as of this encounter (statuses as of 07/13/2022) [place] [address]-2013 History of Past illness Narrative* Problem Noted Date Resolved Date 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 10/03/2012 Breast cancer 07/03/2012 02/11/2013 documented as of this encounter (statuses as of 08/10/2022) [address]28-2013 History of Past illness Narrative* Problem Noted Date Diagnosed Date Resolved Date 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 10/03/2012 Breast cancer 07/03/2012 02/11/2013 documented as of this encounter (statuses as of 11/22/2022) [place] [address]-2013 History of Past illness Narrative* Problem Noted Date Diagnosed Date Resolved Date 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 10/03/2012 Breast cancer 07/03/2012 02/11/2013 documented as of this encounter (statuses as of 11/24/2022) [address]28-2013 History of Past illness Narrative* Problem Noted Date Diagnosed Date Resolved Date 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 10/03/2012 Breast cancer 07/03/2012 02/11/2013 documented as of this encounter (statuses as of 08/06/2023) [facility] complaint+Reason for visit Narrative* Chief Complaint LABS/MANDEEP 1 Y FU OSTEO FALL WOUND SPECIALIST 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 SENIOR CARE LABWORK SENIOR CARE LABWORK Reason for Visit Hypoparathyroidism a fter procedure Hypothyroidism [facility] Work Phone: Chief complaint+Reason for visit Narrative* Chief Complaint LABS/MANDEEP 1 Y FU OSTEO FALL LAB WORK WOUND SPECIALIST 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 SENIOR CARE LABWORK SENIOR CARE LABWORK Reason for Visit Hypoparathyroidism a fter procedure Hypothyroidism [facility] Work Phone: Chief complaint+Reason for visit Narrative* Chief Complaint OSTEO FALL LAB WORK WOUND SPECIALIST 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 SENIOR CARE LABWORK SENIOR CARE LABWORK SENIOR CARE LABWORK LAB WORK SENIOR CARE LABWORK SENIOR CARE LAB WORK [facility] Work Phone: Chief complaint+Reason for visit Narrative* Chief Complaint FALL LAB WORK WOUND SPECIALIST 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 SENIOR CARE LABWORK SENIOR CARE LABWORK SENIOR CARE LABWORK LAB WORK SENIOR CARE LABWORK LAB WORK SENIOR CARE LABWORK SENIOR CARE LAB WORK LABWORK [facility] Work Phone: Chief complaint+Reason for visit Narrative* Chief Complaint FALL LAB WORK WOUND SPECIALIST 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 SENIOR CARE LABWORK SENIOR CARE LABWORK SENIOR CARE LABWORK LAB WORK SENIOR CARE LABWORK LAB WORK SENIOR CARE LABWORK SENIOR CARE LAB WORK SENIOR CARE LABWORK LABWORK SENIOR CARE LAB WORK [facility] Work Phone: Chief complaint+Reason for visit Narrative* Chief Complaint FALL LAB WORK WOUND SPECIALIST 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 SENIOR CARE LABWORK SENIOR CARE LABWORK SENIOR CARE LABWORK LAB WORK SENIOR CARE LABWORK LAB WORK SENIOR CARE LABWORK SENIOR CARE LAB WORK SENIOR CARE LABWORK SENIOR CARE LABWORK LABWORK SENIOR CARE LAB WORK [facility] Work Phone: Chief complaint+Reason for visit Narrative* Chief Complaint FALL LAB WORK WOUND SPECIALIST 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 SENIOR CARE LABWORK SENIOR CARE LABWORK SENIOR CARE LABWORK LAB WORK SENIOR CARE LABWORK LAB WORK SENIOR CARE LABWORK SENIOR CARE LAB WORK SENIOR CARE LABWORK SENIOR CARE LABWORK LABWORK SENIOR CARE LAB WORK SENIOR CARE LAB WORK [facility] Work Phone: Chief complaint+Reason for visit Narrative* Chief Complaint FALL LAB WORK WOUND SPECIALIST 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 SENIOR CARE LABWORK SENIOR CARE LABWORK SENIOR CARE LABWORK LAB WORK SENIOR CARE LABWORK LAB WORK SENIOR CARE LABWORK SENIOR CARE LAB WORK SENIOR CARE LABWORK SENIOR CARE LABWORK LABWORK SENIOR CARE LAB WORK SENIOR CARE LAB WORK [facility] Work Phone: Chief complaint+Reason for visit Narrative* Chief Complaint FALL LAB WORK WOUND SPECIALIST 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 SENIOR CARE LABWORK SENIOR CARE LABWORK SENIOR CARE LABWORK LAB WORK SENIOR CARE LABWORK LAB WORK SENIOR CARE LABWORK SENIOR CARE LAB WORK SENIOR CARE LABWORK SENIOR CARE LABWORK LABWORK SENIOR CARE LAB WORK LABWORK SENIOR CARE LAB WORK [facility] Work Phone: Chief complaint+Reason for visit Narrative* Chief Complaint LAB WORK WOUND SPECIALIST 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 SENIOR CARE LABWORK SENIOR CARE LABWORK SENIOR CARE LABWORK LAB WORK SENIOR CARE LABWORK LAB WORK SENIOR CARE LABWORK SENIOR CARE LAB WORK SENIOR CARE LABWORK SENIOR CARE LABWORK LABWORK SENIOR CARE LAB WORK LABWORK SENIOR CARE LAB WORK FALL SENIOR CARE LABWORK SENIOR CARE LABWORK [facility] Work Phone: Chisg complaint+Reason for visit Narrative* Chief Complaint LAB WORK WOUND SPECIALIST 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 SENIOR CARE LABWORK SENIOR CARE LABWORK SENIOR CARE LABWORK LAB WORK SENIOR CARE LABWORK LAB WORK SENIOR CARE LABWORK SENIOR CARE LAB WORK SENIOR CARE LABWORK SENIOR CARE LABWORK LABWORK SENIOR CARE LAB WORK LABWORK SENIOR CARE LAB WORK FALL SENIOR CARE LABWORK SENIOR CARE LABWORK SENIOR CARE LABWORK SENIOR CARE LAB WORK [facility] Work Phone: chief complaint+Reason for visit Narrative* Chief Complaint LAB WORK WOUND SPECIALIST 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 SENIOR CARE LABWORK SENIOR CARE LABWORK SENIOR CARE LABWORK LAB WORK SENIOR CARE LABWORK LAB WORK SENIOR CARE LABWORK SENIOR CARE LAB WORK SENIOR CARE LABWORK SENIOR CARE LABWORK LABWORK SENIOR CARE LAB WORK LABWORK SENIOR CARE LAB WORK LABWORK FALL SENIOR CARE LABWORK SENIOR CARE LABWORK SENIOR CARE LABWORK SENIOR CARE LAB WORK [facility] Work Phone: Discharge summary Author James Lamar [facility] November 23, 2022 12:54pm Note Date/Time November 23, 2022 12: 44pm [facility] Medical Records Department [address] [place] [id number] Instructions for Home/Discharge Instructions 11/23/22 1241 MR#: [id number] Acct: [id number] Name: AIDEN FIELDS Rep #:[id number] : 1945 77 From: James Lamar DO [...] DO; Dr. Bandar Chanel MD ~ Signed [facility] Work Phone: Evaluation note* Diagnosis Otalgia, right- Primary Vertigo Dizziness and giddiness URI, acute Acute upper respiratory infections of unspecified site [facility]* Diagnosis Malignant neoplasm of left breast in female, estrogen receptor positive, unspecified site of breast (HCC)- Primary [facility]* Diagnosis Onset Date Resolution Status Hypoparathyroidism after procedure acute Hypothyroidism acute [facility] Work Phone: Evaluation note* Diagnosis Malignant neoplasm of left breast in female, estrogen receptor positive, unspecified site of breast (HCC)- Primary [facility]* Diagnosis SDH (subdural hematoma) (HCC)- Primary Subdural hemorrhage documented in this encounter [facility] note* Diagnosis SDH (subdural hematoma) (HCC) Subdural hemorrhage documented in this encounter [facility] note* Diagnosis Closed fracture of multiple ribs with flail chest with routine healing, subsequent encounter- Primary documented in this encounter [facility] note* Diagnosis Closed fracture of multiple ribs of left side, initial encounter Lung laceration, subsequent encounter documented in this encounter [facility] noteNo assessment information availableWAshtabula [facility] Work Phone: Evaluation note* Diagnosis Malignant neoplasm of left breast in female, estrogen receptor positive, unspecified site of breast (HCC)- Primary documented in this encounter [facility] note* Diagnosis SDH (subdural hematoma) (HCC) Subdural hemorrhage Cerebral hemorrhage (HCC) Intracerebral hemorrhage documented in this encounter [facility] note* Diagnosis SDH (subdural hematoma)- Primary Subdural hemorrhage Cerebral hemorrhage (HCC) Intracerebral hemorrhage documented in this encounter [facility] note* Diagnosis Malignant neoplasm of left breast in female, estrogen receptor positive, unspecified site of breast (HCC)- Primary documented in this encounter [facility] note* Diagnosis Malignant neoplasm of left breast in female, estrogen receptor positive, unspecified site of breast (HCC)- Primary documented in this encounter [facility] note* Diagnosis Onset Date Resolution Status Cough acute Hypoxia [facility] Work Phone: Evaluation note* Diagnosis Acute cough- Primary SOB (shortness of breath) Shortness of breath Suspected COVID-19 virus infection documented in this encounter [facility] note* Diagnosis Onset Date Resolution Status Cough acute Dyspnea on exertion acute Hypoxia acute [facility] Work Phone: Evaluation note* Diagnosis Onset Date Resolution Status Acute hypotension acute Acute hypoxic respiratory failure acute Creatinine elevation acute Encephalopathy due to infection acute Ketosis acute Pyuria acute SIRS (systemic inflammatory response syndrome) [facility] Work Phone: Evaluation note* Diagnosis History of breast cancer- Primary Personal history of malignant neoplasm of breast documented in this encounter [facility] note* Diagnosis Onset Date Resolution Status Acute hypotension resolved Creatinine elevation resolve d Encephalopathy due to infection resolved Ketosis resolved Pyuria resolved SIRS (systemic inflammatory response syndrome) resolved [facility] Work Phone: Evaluation note* Diagnosis History of breast cancer- Primary Personal history of malignant neoplasm of breast [facility]* Diagnosis Pre-operative examination- Primary Preoperative examination, [...] encounter Acute cough documented in this encounter [facility] note* Diagnosis Pre-operative examination- Primary Preoperative examination, [...] arm, subsequent encounter documented in this encounter [facility] Author Aggie Bolton [facility] May 19, 2023 1:45am Note Date/Time May 19, 2023 1 :39am [facility] Medical Records Department [address] [place] [address] H&P Exam - Hospitalist 05/19/23 0135 MR#: [id number] Acct: [id number] Name: AIDEN FIELDS Rep #:[id number] : 1945 77 From: Aggie Bolton MD [...] of prior records who presents to the [facility] ED on 05/19/23 with significant encephalopathy [...] and azithromycin 500 mg IV x 1. [facility] Medical History (Updated 05/19/23 @ 01:44 [...] Unknown Unknown Verified 05/18/23 23:29 [From Neosporin ([id number])] neomycin Allergy Unknown Unknown Verified 05/18/23 23:29 [From Neosporin ([id number])] polymyxin B Allergy Unknown Unknown Verified 05/18/23 23:29 [From Neosporin ([id number])] Antihistamines - Alkylamine Allergy PT UNSURE Verified [...] 89.8 H, Lymph % (Auto) 6.3 L, [place] % (Auto) 2.4, Eos % (Auto) 0.3, [...] Urine Clarity Cloudy, Urine pH6.0, Ur Specific [place] 1.010, Urine Protein 100 H, Urine Glucose [...] review of prior recordswho presents to the [facility]23 with significant encephalopathy [...] prophylaxis: Heparin. Charges/Coding Visit Charges Inpatient E&M: 35340 Init Hosp L3 05/19/23 0145 <Electronically signed by Aggie Bolton MD> Cosigner Signature (if applicable): CC: Dr. Aggie Bolton MD; Dr. Erica Richardson DO~ Signed [facility] Work Phone: [facility] Discharge instructionsWooF[facility] Work Phone: Hospital Discharge instructions Additional Instructions Follow-up with your insurance administrative assistant as scheduled.[facility] Work Phone: Hospital Discharge instructions Additional Instructions Thank you for trusting us with your care today! Please take Tylenol (2 pills, 650 mg), ibuprofen (2 pills, 400 mg) every 6 hours as needed for pain and fever control. Please return to the emergency department if your symptoms change or worsen. Please follow with your primary care physician for further outpatient evaluation and management.[facility] Work Phone: Hospital Discharge instructions Additional Instructions Follow-up with Dr. Obregon in the outpatient setting. Wear the sling. Return with worsening symptoms or any concernsW[facility] Work Phone: Reason for referral (narrative)* Diagnostic Procedure Only (Urgent) - Closed Specialty Diagnoses / Procedures Referred By Contac t Referred To Contact XR IMAGING Diagnoses Injury of left upper arm, subsequent encounter Procedures XR HUMERUS 2V AP/LAT LEFT X-RAY HUMERUS Earline Rebolledo APRN.SNAILER [address] [place] [phone] Xr Imaging [facility]95 Referral ID Status Reason Start Date Expiration Date V isits Requested Visits Authorized [id number] Closed Auto-Generate d Referral 03/17/2021 04/16/2022 1 [facility]No reason for referral information availableWAshtabula [facility] Work Phone: Reason for visit Narrative* Diagnostic Procedure Only (Urgent) - Closed Specialty Diagnoses / Procedures Referred By Contac t Referred To Contact XR IMAGING Diagnoses Injury of left upper arm, subsequent encounter Procedures XR HUMERUS 2V AP/LAT LEFT X-RAY HUMERUS Earline Rebolledo APRN.SNAILER [address] [place] [phone] Xr Imaging [facility]95 Referral ID Status Reason Start Date Expiration Date V isits Requested Visits Authorized [id number] Closed Auto-Generate d Referral 03/17/2021 04/16/2022 1 1 [facility] Summary Purpose Family History No Family [...] Documents on File Type Date Recorded Patient Processor Solid Propellant Expl anation Advance Directive(s) 06/13/2018 11:17 AM Advance Directive Response Recorded Date/ Time Name of Medical Power of Agriculture Extension Specialist . May 21, 2021 3:48pm Living Will Yes June 11 12:06pm Power of Agriculture Extension Specialist Yes June 11, 2021 12:06pm Advance Directive Response Recorded Date/ Time Name of Medical Power of Agriculture Extension Specialist Reed Marx June 11, 2021 12:06pm Living Will Yes October 06, 2021 9:38pm Power of Agriculture Extension Specialist No October 06 9:38pm Documents on File Type Date Recorded Patient Processor Solid Propellant Expl anation Advance Directive(s) 10/07/2021 4:42 AM Advance Directive(s) 06/13/2018 11:17 AM Documents on File Type Date Recorded Patient Processor Solid Propellant Expl anation Advance Directive(s) 10/07/2021 4:42 AM Advance Directive(s) 06/13/2018 11:17 AM Advance Directive Response Recorded Date/ Time Living Will Yes October 06, 2021 9:38pm Power of Agriculture Extension Specialist No October 06 9:38pm Advance Directive Response Recorded Date/ Time Name of Medical Power of Agriculture Extension Specialist REED AZAR January 10, 2022 11:50am Living Will Yes January 10, 2022 11:50am Power of Agriculture Extension Specialist Yes December 11:50am Advance Directive Response Recorded Date/ Time Living Will Yes March 09 8:51am Power of Agriculture Extension Specialist Yes March 09, 2022 8:51am Name of Medical Power of Agriculture Extension Specialist REED AZAR January 10, 2022 10:50am Advance Directive Response Recorded Date/ Time Living Will Yes March 09 8:51am Power of Agriculture Extension Specialist Yes March 09, 2022 8:51am Advance Directive Response Recorded Date/ Time Name of Medical Power of Agriculture Extension Specialist karol marx- daughter July 02, 2022 5:04pm Living Will Yes July 02, 2022 5:04pm Power of Agriculture Extension Specialist Yes July 02 5:04pm Advance Directive Response Recorded Date/ Time Name of Medical Power of Agriculture Extension Specialist Reed Marx November 22, 2022 12:50pm Living Will Yes November 22, 2022 12:50pm Power of Agriculture Extension Specialist Yes November 22 12:50pm Advance Directive Response Recorded Date/ Time Name of Medical Power of Agriculture Extension Specialist Reed Sorianoer November 22, 2022 6:25pm Living Will Yes November 22, 2022 6:25pm Power of Agriculture Extension Specialist Yes November 22 6:25pm Advance Directive Response Recorded Date/ Time Living Will Yes November 22, 2022 5:25pm Power of Agriculture Extension Specialist Yes November 22 5:25pm Advance Directive Response Recorded Date/ Time Name of Medical Power of Agriculture Extension Specialist Reed Marx May 19, 2023 3:16am Living Will Yes May 19 3:16am Power of Agriculture Extension Specialist Yes May 19, 2023 3:16am Advance Directive Response Recorded Date/ Time Name of Medical Power of Agriculture Extension Specialist Reed Marx May 19, 2023 4:16am Living Will No August 20, 2023 12:29pm Power of Agriculture Extension Specialist No August 19 12:29pm Advance Directive Response Recorded Date/ Time Living Will No July 04, 2024 1:18pm Power of Agriculture Extension Specialist No July 04 1:18pm Advance Directive Response Recorded Date/ Time Living Will No July 04, 2024 1:18pm Do you have a Healthcare Power of Agriculture Extension Specialist? No July 04, 2024 1:18pm Advance Directive Response Recorded Date/ Time Living Will No July 04, 2024 1:18pm Do you have a Healthcare Power of Agriculture Extension Specialist? No July 04, 2024 1:18pm Do you have a Healthcare Power of Agriculture Extension Specialist? Yes September 22, 2024 11:53pm Name of Medical Power of Agriculture Extension Specialist Reed Burris September 22, 2024 11:53pm Advance Directive Response Recorded Date/ Time Do you have a Healthcare Power of Agriculture Extension Specialist? Yes September 26, 2024 1:40pm Living Will No July 04, 2024 1:18pm Do you have a Healthcare Power of Agriculture Extension Specialist? No July 04, 2024 1:18pm Do you have a Healthcare Power of Agriculture Extension Specialist? Yes September 22, 2024 11:53pm Name of Medical Power of Agriculture Extension Specialist Reed Burris September 22, 2024 11:53pm Advance Directive Response Recorded Date/ Time Living Will No July 04, 2024 1:18pm Do you have a Healthcare Power of Agriculture Extension Specialist? No July 04, 2024 1:18pm Do you have a Healthcare Power of Agriculture Extension Specialist? Yes September 22, 2024 8:06pm Advance Directive Response Recorded Date/ Time Do you have a Healthcare Power of Agriculture Extension Specialist? Yes September 26, 2024 1:40pm Do you have a Healthcare Power of Agriculture Extension Specialist? Yes September 22, 2024 11:53pm Name of Medical Power of Agriculture Extension Specialist Reed Burris September 22, 2024 11:53pm Reason for Referral Status Reason Specialty Diagnoses / Procedures Referre d By Contact Referred To Contact Open Radiology Diagnoses Traumatic subdural hematoma with loss of consciousness of 30 minutes or less, subsequent encounter Procedures CT Head WO Contrast Nicho Thompson MD [address] [place] [id number] Specialty Diagnoses / Procedures Referred By Contac t Referred To Contact CT IMAGING Diagnoses SDH (subdural hematoma) (HCC) Procedures CT BRAIN WO IVCON CT HEAD/BRAIN W/O CONTRAST MATERIAL Yolie Lowe PA-C [address] [place] [address] Ct Imaging Referral ID Status Reason Start Date Expiration Date Visits Requested Visits Authorized [id number] Pending Review Auto-Generat ed Referral 10/25/2021 11/10/2022 1 1 Referral ID Status Reason Start Date Expiration Date V isits Requested Visits Authorized [id number] Closed Auto-Generate d Referral 10/25/2021 11/10/2022 1 1 Specialty Diagnoses / Procedures Referred By Contac t Referred To Contact MR IMAGING Diagnoses SDH (subdural hematoma) (HCC) Cerebral hemorrhage (HCC) Procedures MRI BRAIN WO/W IVCON MRI BRAIN BRAIN STEM W/O W/CONTRAST MATERIAL Sherice Rosenberg APRN.SNAILER [address] [place] [address] Mr Imaging Referral ID Status Reason Start Date Expiration Date V isits Requested Visits Authorized [id number] Closed Auto-Generate d Referral 11/03/2021 12/03/2022 1 [...] 9:44 AM EST Family Communication Number Called: [phone] Name of Designated Family Processor Solid Propellant: Reed Fields Relationship to Patient: daughter Phone Call Outcome: I spoke with the individual listed above. Family Processor Solid Propellant Updated on the Following: CT scan and [...] Discharge Recommendations: (Facility-based therapy or home with 12/11 supervision and OT/PT) Assessment Performance deficits / Impairments: Decreased [...] tasks this date. 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 [...] Endurance Training, Home Management Training OutComes Score [facility] Daily Activity Inpatient How much help for [...] How much help for eating meals?: None [facility] Inpatient Daily Activity Raw Score: 20 [facility] Inpatient ADL T-Scale Score : 42.03 ADL Inpatient CMS 0-100% Score: 38.32 ADL Inpatient CMS G-Code Modifier : AM-PAC Score [facility] Inpatient Daily Activity Raw Score: 20 (04/17/20911) [facility] Inpatient ADL T-Scale Score : 42.03 (04/17/20911) ADL Inpatient CMS 0-100% Score: 38.32 (04/17/20911) ADL Inpatient CMS G-Code Modifier : (04/17/20911) Goals Short term goals Time Frame [...] 805 Time Out 0826 Minutes 20 Variance: 10(PT Eval) Goals and/or treatment plan was established in collaboration with patient/family/other representatives. Patient's Occupational Therapy Plan of [facility]. This provider wore an N95, face shield, and gloves for the duration of the session with this pt. Yara Fletcher, OTR/L * Parvez Bolden, PT - 04/17/2020 9:05 AM EST Physical Therapy Facility/Department: [facility] ICU T2 Initial Assessment NAME: Aiden Fields : 1945 Date of Service: 04/17/2020 Discharge Recommendations: (facility based therapy) Assessment Body structures, Functions, Activity limitations: Decreased functional mobility ;Decreased strength;Decreased balance;Decreased safe awareness;Decreased endurance Assessment: Pt admitted for Small R temporal SDH without mass effect after fall. 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 Goals and/or treatment plan was established in collaboration with pt This PT wore N95, gloves and goggles during session Pt wore mask bed alarm on prior to session and bed alarm after session Parvez Bolden PT * Vincent Salas RN - 04/16/2020 7:00 PM EST Tried to call the pharmacy to update the home medication list and the pharmacy has been closed for the day. * Char Walsh SLP - 04/16/2020 2:38 PM EST Speech Language Pathology Facility/Department: [facility] ICU T2 CLINICAL BEDSIDE SWALLOW EVALUATION NAME: [...] Injury: Fall SH Mechanism of Arrival:Transfer from [place] Chief Complaint: headache History of Traumatic Injury: 74 y.o. female with history of depression, anxiety, hypothyroidism, hypertension, breast cancer s/p mastectomy, melanoma s/p excision and on baby ASA who presents as transfer from [facility] after patient suffered [...] lifealert. EMS cam and brought her to [facility]. Work up at the OSH, showed [...] was repair and she was transferred to [facility] for further management. Upon arriaval she was [...] if any concerns arise. Treatment Plan Requires DRY WALL FINISHER Intervention: No Duration/Frequency of Treatment: na Recommended Diet and Intervention Diet Solids Recommendation: Regular Liquid Consistency Recommendation: Thin General Chart Reviewed: Yes Behavior/Cognition: Alert;Cooperative - patient lives alone - spouse moved to [facility] 9 months ago due to [...] Safety Devices in place: Yes Therapy Time DRY WALL FINISHER Individual Minutes Time In: 1415 Time Out: 1430 Minutes: 15 DRY WALL FINISHER Total Treatment Time Total Treatment Time: 15 Char Walsh MS, CCC/ DRY WALL FINISHER 04/16/2020 2:38 PM An N95 mask, a [...] Hospital Course Note [facility] Discharge Summary Name: Aiden Fields Date: [...] Hypoparathyroidism a fter procedure Hypothyroidism Chief Complaint SENIOR CARE LABWORK SENIOR CARE LABWORK SENIOR CARE LABWORK LAB WORK SENIOR CARE LABWORK LAB WORK SENIOR CARE LABWORK SENIOR CARE LAB WORK SENIOR CARE LABWORK SENIOR CARE LABWORK LABWORK SENIOR CARE LAB WORK LABWORK SENIOR CARE LAB WORK LABWORK FALL SENIOR CARE LABWORK SENIOR CARE LABWORK SENIOR CARE LABWORK SENIOR CARE LAB WORK SENIOR CARE LAB WORK Chief Complaint LAB WORK SENIOR CARE LABWORK LAB WORK SENIOR CARE LABWORK SENIOR CARE LAB WORK SENIOR CARE LABWORK SENIOR CARE LABWORK LABWORK SENIOR CARE LAB WORK LABWORK SENIOR CARE LAB WORK LABWORK FALL SENIOR CARE LABWORK SENIOR CARE LABWORK SENIOR CARE LABWORK SENIOR CARE LAB WORK SENIOR CARE LAB WORK SENIOR CARE LAB WORK FOLLOW UP Chief Complaint SENIOR CARE LABWORK LAB WORK SENIOR CARE LABWORK SENIOR CARE LAB WORK SENIOR CARE LABWORK SENIOR CARE LABWORK LABWORK SENIOR CARE LAB WORK LABWORK SENIOR CARE LAB WORK LABWORK FALL SENIOR CARE LABWORK SENIOR CARE LABWORK SENIOR CARE LABWORK SENIOR CARE LAB WORK SENIOR CARE LAB WORK SENIOR CARE LAB WORK SENIOR CARE LABWORK FOLLOW UP Chief Complaint SENIOR CARE LAB WOR K LABWORK FALL SENIOR CARE LABWORK SENIOR CARE LABWORK SENIOR CARE LABWORK SENIOR CARE LAB WORK SENIOR CARE LAB WORK SENIOR CARE LAB WORK SENIOR CARE LABWORK FOLLOW UP SENIOR CARE LABWORK Chief Complaint SENIOR CARE LAB WOR K SENIOR CARE LABWORK FOLLOW UP SENIOR CARE LABWORK PAIN IN RIGHT THIGH Chief Complaint FOLLOW UP SENIOR CARE LABWORK PAIN IN RIGHT THIGH RIGHT THIGH MASS Chief Complaint SENIOR CARE LABWORK PAIN IN RIGHT THIGH RIGHT THIGH [...] (urinary tract infection) September 22, 2024 10:45pm Chief Complaint Admit Date general illness July 04, 2024 12: 55pm URINE DROPOFF September 11, 2024 12:53 pm ADULT FTT, UTI, MILD RHABDO September 22 10:45pm ADULT FTT, UTI, MILD RHABDO September 23 8:16am ADULT FTT, UTI, MILD RHABDO September 24 8:09am ADULT FTT, UTI, MILD RHABDO September 25 8:03am fall September 26, 2024 1:16p m Chief Complaint Admit Date general illness July 04, 2024 12: 55pm URINE DROPOFF September 11, 2024 12:53 pm ADULT FTT, UTI, MILD RHABDO September 22 10:45pm Reason for Visit Admit Date Elevated CPK September 22, 2024 10:45 pm Fatigue September 22, 2024 10:45 pm Generalized weakness September 22, 2024 10:4 5pm Unable to ambulate September 22, 2024 10:45 pm UTI (urinary tract infection) September 22, 2024 10:45pm Chief Complaint Admit Date URINE DROPOFF September 11, 2024 12:53 pm ADULT FTT, UTI, MILD RHABDO September 22 10:45pm ADULT FTT, UTI, MILD RHABDO September 23 8:16am ADULT FTT, UTI, MILD RHABDO September 24 8:09am ADULT FTT, UTI, MILD RHABDO September 25 8:03am fallSeptember 26, 2024 1:16p m LAB WORK September 28, 2024 4:00a m LABWORK October 05, 2024 5:00 am LAB WORK October 12, 2024 5:00 am LAB WORK October 19, 2024 5:00 am Chief Complaint Admit Date URINE DROPOFF September 11, 2024 12:53 pm ADULT FTT, UTI, MILD RHABDO September 22 10:45pm ADULT FTT, UTI, MILD RHABDO September 23 8:16am ADULT FTT, UTI, MILD RHABDO September 24 8:09am ADULT FTT, UTI, MILD RHABDO September 25 8:03am fallSeptember 26, 2024 1:16p m LAB WORK September 28, 2024 4:00a m NEW ADMISSION EXAM September 28, 2024 3:30p m LABWORK October 05, 2024 5:00 am LAB WORK October 12, 2024 5:00 am LAB WORK October 19, 2024 5:00 am LABWORK October 26, 2024 5:00a m Chief Complaint Admit Date URINE DROPOFF September 11, 2024 12:53 pm ADULT FTT, UTI, MILD RHABDO September 22 10:45pm ADULT FTT, UTI, MILD RHABDO September 23 8:16am ADULT FTT, UTI, MILD RHABDO September 24 8:09am ADULT FTT, UTI, MILD RHABDO September 25 8:03am fall September 26, 2024 1:16p m LAB WORK September 28, 2024 4:00a m NEW ADMISSION EXAM September 28, 2024 3:30p m ADMISSION EXAM September 29, 2024 1:30 pm LABWORK October 05, 2024 5:00 am LAB WORK October 12, 2024 5:00 am LAB WORK October 19, 2024 5:00 am LABWORK October 26, 2024 5:00a m Chief Complaint Admit Date URINE DROPOFF September 11, 2024 12:53 pm ADULT FTT, UTI, MILD RHABDO September 22 10:45pm ADULT FTT, UTI, MILD RHABDO September 23 8:16am ADULT FTT, UTI, MILD RHABDO September 24 8:09am ADULT FTT, UTI, MILD RHABDO September 25 8:03am fall September 26, 2024 1:16p m LAB WORK September 28, 2024 4:00a m NEW ADMISSION EXAM September 28, 2024 3:30p m ADMISSION EXAM September 29, 2024 1:30 pm NEW CONCERN September 30, 2024 2:45 pm LABWORK October 05, 2024 5:00 am LAB WORK October 12, 2024 5:00 am LAB WORK October 19, 2024 5:00 am LABWORK October 26, 2024 5:00a m Chief Complaint Admit Date URINE DROPOFF September 11, 2024 12:53 pm ADULT FTT, UTI, MILD RHABDO September 22 10:45pm ADULT FTT, UTI, MILD RHABDO September 23 8:16am ADULT FTT, UTI, MILD RHABDO September 24 8:09am ADULT FTT, UTI, MILD RHABDO September 25 8:03am fall September 26, 2024 1:16p m LAB WORK September 28, 2024 4:00a m NEW ADMISSION EXAM September 28, 2024 3:30p m ADMISSION EXAM September 29, 2024 1:30 pm NEW CONCERN September 30, 2024 2:45 pm NEW CONCERN October 01, 2024 3:45 pm LABWORK October 05, 2024 5:00 am LAB WORK October 12, 2024 5:00 am LAB WORK October 19, 2024 5:00 am LABWORK October 26, 2024 5:00a m Chief Complaint Admit Date URINE DROPOFF September 11, 2024 12:53 pm ADULT FTT, UTI, MILD RHABDO September 22 10:45pm ADULT FTT, UTI, MILD RHABDO September 23 8:16am ADULT FTT, UTI, MILD RHABDO September 24 8:09am ADULT FTT, UTI, MILD RHABDO September 25 8:03am fall September 26, 2024 1:16p m LAB WORK September 28, 2024 4:00a m NEW ADMISSION EXAM September 28, 2024 3:30p m ADMISSION EXAM September 29, 2024 1:30 pm NEW CONCERN September 30, 2024 2:45 pm NEW CONCERN October 01, 2024 3:45 pm LABWORK October 05, 2024 5:00 am LAB WORK October 12, 2024 5:00 am NEW CONCERN October 12, 2024 3:30 pm LAB WORK October 19, 2024 5:00 am LABWORK October 26, 2024 5:00a m Additional Source Comments INFORMATION SOURCE (unrecogn ized section and content) DATE CREATED AUTHOR 09/06/[address] [facility] ([place]) DATE CREATED AUTHOR AUTHOR'S ORGANIZ ATION 05/05/2020 [facility] DATE CREATED AUTHOR AUTHOR'S ORGANIZ ATION 01/21/2022 [facility] DATE CREATED AUTHOR AUTHOR'S ORGANIZ ATION 09/22/2023 [facility] DATE CREATED AUTHOR AUTHOR'S ORGANIZ ATION 11/08/2023 [facility] DATE CREATED AUTHOR AUTHOR'S ORGANIZ ATION 11/20/2024 [facility] Source Comments (unrecognize d section and content) In the event this informatio n is protected by the Federal Confidentiality of Alcohol and Drug Abuse Patient Records regulations: The Federal rules restrict any use of the information to criminally investigate or prosecute any alcohol or drug abuse patient.[facility] HospitalIn the event this information is protected by the Federal Confidentiality of Alcohol and Drug Abuse Patient Records regulations: The Federal rules restrict any use of the information to criminally investigate or prosecute any alcohol or drug abuse patient.[facility] HospitalIn the event this information is protected by the Federal Confidentiality of Alcohol and Drug Abuse Patient Records regulations: The Federal rules restrict any use of the information to criminally investigate or prosecute any alcohol or drug abuse patient.[facility] HospitalIn the event this information is protected by the Federal Confidentiality of Alcohol and Drug Abuse Patient Records regulations: The Federal rules restrict any use of the information to criminally investigate or prosecute any alcohol or drug abuse patient.[facility] HospitalIn the event this information is protected by the Federal Confidentiality of Alcohol and Drug Abuse Patient Records regulations: The Federal rules restrict any use of the information to criminally investigate or prosecute any alcohol or drug abuse patient.[facility] HospitalIn the event this information is protected by the Federal Confidentiality of Alcohol and Drug Abuse Patient Records regulations: The Federal rules restrict any use of the information to criminally investigate or prosecute any alcohol or drug abuse patient.[facility] HospitalIn the event this information is protected by the Federal Confidentiality of Alcohol and Drug Abuse Patient Records regulations: The Federal rules restrict any use of the information to criminally investigate or prosecute any alcohol or drug abuse patient.[facility] HospitalIn the event this information is protected by the Federal Confidentiality of Alcohol and Drug Abuse Patient Records regulations: The Federal rules restrict any use of the information to criminally investigate or prosecute any alcohol or drug abuse patient.[facility] HospitalIn the event this information is protected by the Federal Confidentiality of Alcohol and Drug Abuse Patient Records regulations: The Federal rules restrict any use of the information to criminally investigate or prosecute any alcohol or drug abuse patient.[facility] HospitalIn the event this information is protected by the Federal Confidentiality of Alcohol and Drug Abuse Patient Records regulations: The Federal rules restrict any use of the information to criminally investigate or prosecute any alcohol or drug abuse patient.[facility] HospitalIn the event this information is protected by the Federal Confidentiality of Alcohol and Drug Abuse Patient Records regulations: The Federal rules restrict any use of the information to criminally investigate or prosecute any alcohol or drug abuse patient.[facility] HospitalIn the event this information is protected by the Federal Confidentiality of Alcohol and Drug Abuse Patient Records regulations: The Federal rules restrict any use of the information to criminally investigate or prosecute any alcohol or drug abuse patient.[facility] HospitalIn the event this information is protected by the Federal Confidentiality of Alcohol and Drug Abuse Patient Records regulations: The Federal rules restrict any use of the information to criminally investigate or prosecute any alcohol or drug abuse patient.[facility] HospitalIn the event this information is protected by the Federal Confidentiality of Alcohol and Drug Abuse Patient Records regulations: The Federal rules restrict any use of the information to criminally investigate or prosecute any alcohol or drug abuse patient.[facility] HospitalIn the event this information is protected by the Federal Confidentiality of Alcohol and Drug Abuse Patient Records regulations: The Federal rules restrict any use of the information to criminally investigate or prosecute any alcohol or drug abuse patient.[facility] HospitalIn the event this information is protected by the Federal Confidentiality of Alcohol and Drug Abuse Patient Records regulations: The Federal rules restrict any use of the information to criminally investigate or prosecute any alcohol or drug abuse patient.[facility] HospitalIn the event this information is protected by the Federal Confidentiality of Alcohol and Drug Abuse Patient Records regulations: The Federal rules restrict any use of the information to criminally investigate or prosecute any alcohol or drug abuse patient.[facility] HospitalIn the event this information is protected by the Federal Confidentiality of Alcohol and Drug Abuse Patient Records regulations: The Federal rules restrict any use of the information to criminally investigate or prosecute any alcohol or drug abuse patient.[facility] HospitalIn the event this information is protected by the Federal Confidentiality of Alcohol and Drug Abuse Patient Records regulations: The Federal rules restrict any use of the information to criminally investigate or prosecute any alcohol or drug abuse patient.[facility] HospitalIn the event this information is protected by the Federal Confidentiality of Alcohol and Drug Abuse Patient Records regulations: The Federal rules restrict any use of the information to criminally investigate or prosecute any alcohol or drug abuse patient.[facility] HospitalIn the event this information is protected by the Federal Confidentiality of Alcohol and Drug Abuse Patient Records regulations: The Federal rules restrict any use of the information to criminally investigate or prosecute any alcohol or drug abuse patient.[facility] HospitalIn the event this information is protected by the Federal Confidentiality of Alcohol and Drug Abuse Patient Records regulations: The Federal rules restrict any use of the information to criminally investigate or prosecute any alcohol or drug abuse patient.[facility] HospitalIn the event this information is protected by the Federal Confidentiality of Alcohol and Drug Abuse Patient Records regulations: The Federal rules restrict any use of the information to criminally investigate or prosecute any alcohol or drug abuse patient.[facility] HospitalIn the event this information is protected by the Federal Confidentiality of Alcohol and Drug Abuse Patient Records regulations: The Federal rules restrict any use of the information to criminally investigate or prosecute any alcohol or drug abuse patient.[facility] HospitalIn the event this information is protected by the Federal Confidentiality of Alcohol and Drug Abuse Patient Records regulations: The Federal rules restrict any use of the information to criminally investigate or prosecute any alcohol or drug abuse patient.[facility] Reason for Visit (unrecogniz ed section [...] W/O CONTRAST MATERIAL Yolie Lowe PA-C [address] [place] [address] Ct Imaging Referral ID Status Reason Start Date Expiration Date V isits Requested Visits Authorized [id number] Closed Auto-Generate d Referral 10/25/2021 11/10/2022 1 1 Reason Comments Post Op fu rib fx and pneumo thorax, rib plating Reason Comments Radio Gen RMP Specialty Diagnoses / Procedures Referred By Contac t Referred To Contact MR IMAGING Diagnoses SDH (subdural hematoma) (HCC) Cerebral hemorrhage (HCC) Procedures MRI BRAIN WO/W IVCON MRI BRAIN BRAIN STEM W/O W/CONTRAST MATERIAL Sherice Rosenberg, AUTOMOTIVE TIRE TECHNICIAN.SNAILER [address] [place] [address] Mr Imaging Referral ID Status Reason Start Date Expiration Date V isits Requested Visits Authorized [id number] Closed Auto-Generate d Referral 11/03/2021 12/03/2022 1 1 Reason Comments Established Patient Reason Comments Cough Cough x 3 weeks Reason Comments Results Care Teams (unrecognized sec tion and content) Staff Combat Information Center Officer Relationship Specialty Start Date End Date Erica Richardson, [address] [place], [place] [phone] PCP - General Family Practice 10/27/17 Staff Combat Information Center Officer Relationship Specialty Start Date End Date Erica Richardson DO [address] [place], [place] [id number] PCP - General Family Practice 02/15/17 Staff Combat Information Center Officer Relationship Specialty Start Date End Date Erica Richardson DO [address] [place], [place] [address] PCP - General Family Practice 02/15/17 Staff Combat Information Center Officer Relationship Specialty Start Date End Date Erica Richardson DO [address] [place], [place] [id number] PCP - General Family Practice 02/15/17 Staff Combat Information Center Officer Relationship Specialty Start Date End Date Erica Richardson DO [address] [place], [place] [id number] PCP - General Family Practice 02/15/17 Staff Combat Information Center Officer Relationship Specialty Start Date End Date Erica Richardson DO [address] [place], [place] [id number] PCP - General Family Practice 02/15/17 Staff Combat Information Center Officer Relationship Specialty Start Date End Date Erica Richardson DO [address] [place], [place] [address] PCP - General Family Practice 02/15/17 Staff Combat Information Center Officer Relationship Specialty Start Date End Date Erica Richardson DO [address] [place], [place] [phone] PCP - [facility] Family Practice 02/15/17 Staff Combat Information Center Officer Relationship Specialty Start Date End Date Erica Richardson DO [address] [place], [place] [id number] PCP - General Family Practice 02/15/17 Staff Combat Information Center Officer Relationship Specialty Start Date End Date Erica Richardson DO [address] [place] [address] PCP - [facility] Medicine 02/15/17 Staff Combat Information Center Officer Relationship Specialty Start Date End Date Erica Richardson DO [address] [place] [address] PCP - [facility] 02/15/17 Team Status: Active Member Role Status Dates Dr. Erica Richardson DO Family Provider Active Dr. Erica Richardson DO Primary Care Provider Active Team Status: Inactive Member Role Status Dates Dr. Erica Richardson DO Primary Care Provider Active Aiden Mcgrath WOUND SPECIALIST, WOUND SPECIALIST-C Attending Provider Active Team Status: Active Member [...] Primary Care Provider, Attending P rovider Active Staff [employer] Relationship Specialty Start Date End Date Erica Richardson DO [address] [place] [address] PCP - [facility] Family Medicine 02/15/17 Team Status: [...] Bandar Chanel MD Admit Provider, Attending Provi aleaxnder Active Staff [employer] Relationship Specialty Start Date End Date Erica Richardson DO [address] [place] [address] PCP - [facility] Family Medicine 02/15/17 Team Status: [...] Provider, Other Provider Active Dr. James Lamar DO Attending Provider Active Staff [employer] Relationship Specialty Start Date End Date Erica Richardson DO [address] [place], [place] [id number] PCP - [facility] Medicine 02/15/17 Team Status: Active Member Role [...] Dr. Vernon Osman MD Other Provider Active Staff [employer] Relationship Specialty Start Date End Date LiborioErica kuhn DO [address] [place] [address] PCP - General Family Medicine 02/15/17 Team Status: Inactive Member Role Status Dates Dr. Erica Richardson DO Primary Care Provider Active Dr. Seb Bautista DO Emergency Provider Active Staff [employer] Relationship Specialty Start Date End Date LiborioErica kuhn DO [address] [place] [address] PCP - General Family Medicine 02/15/17 Staff [employer] Relationship Specialty Start Date End Date Erica Richardson DO [address] [place] [address] PCP - General Family Medicine 02/15/17 Staff [employer] Relationship Specialty Start Date End Date LiborioErica kuhn DO [address] [place] [address] PCP - General Family Medicine 02/15/17 Team [...] July 04, 2024 Dr. Froy Cameron , Attending Provider Active Start: July 04, 2024 [...] September 11, 2024 Dr. Erica Richardson , Referring Provider Active St art: September 11, 2024 End: September 11, 2024 Leia A Meager Other Provider Active Start: September 11, 2024 [...] Provider Active Star t: September 25, 2024 Team Status: Active Member Role Status Dates Dr. Sheyla Mcgee MD Primary Care Provider Active Team Status: Inactive Member Role Status Dates Dr. Franky Olivas DO Emergency Provider Active Start: September 26, 2024 End: September 26, 2024 Dr. Sheyla Mcgee MD Primary Care Provider Active Start: September 26, 2024 End: September 26, 2024 Team Status: Active Member Role Status Dates Dr. Erica Richardson DO Primary Care Provider Active Start: September 22, 2024 Alexis Quijano MD Emergency Provider Active Star t: September 22, 2024 Dr. Aggie Bolton MD Admit Provider Active St art: September 22, 2024 Dr. Aggie Bolton MD Attending Provider Active Start: September 22, 2024 Team Status: Active Member Role/Relationship Status Dates Dr. Sheyla Mcgee MD Primary Care Provider Active Team Status: Inactive Member Role/Relationship Status Dates Dr. Erica Richardson DO Primary Care Provider Active Start: August 05, 2024 End: August 05, 2024 Dr. Erica Richardson DO Attending Provider Active St art: August 05, 2024 End: August 05, 2024 Team Status: Inactive Member Role/Relationship Status Dates Dr. Erica Richardson DO Primary Care Provider Active Start: August 21, 2024 End: August 21, 2024 Dr. Erica Richardson DO Attending Provider Active St art: August 21, 2024 End: August 21, 2024 Dr. Erica Richardson DO Referring Provider Active St art: August 21, 2024 End: August 21, 2024 Team Status: Inactive Member Role/Relationship Status Dates Dr. Erica Richardson DO Primary [...] September 11, 2024 Team Status: Inactive Member Role/Relationship Status Dates Dr. Erica Richardson DO Primary [...] September 25, 2024 Team Status: Active Member Role/Relationship Status Dates Dr. Erica Richardson DO Primary [...] September 23, 2024 Team Status: Active Member Role/Relationship Status Dates Dr. Erica Richardson DO Primary [...] September 24, 2024 Team Status: Active Member Role/Relationship Status Dates Dr. Erica Richardson DO Primary [...] Provider Active Star t: September 25, 2024 Team Status: Inactive Member Role/Relationship Status Dates Dr. Franky Olivas DO Attending Provider Active Start: September 26, 2024 End: September 26, 2024 Dr. Franky Olivas DO Emergency Provider Active Start: September 26, 2024 End: September 26, 2024 Dr. Sheyla Mcgee MD Primary Care Provider Active Start: September 26, 2024 End: September 26, 2024 Team Status: Active Member Role/Relationship Status Dates Dr. Sheyla Mcgee MD Primary Care Provider Active Start: September 28, 2024 Sheyla SMITH MD Attending Provider Active Start: September 28, 2024 Sheyla SMITH MD Referring Provider Active Start: September 28, 2024 Team Status: Active Member Role/Relationship Status Dates Dr. Sheyla Mcgee MD Primary Care Provider Active Start: October 05, 2024 Sheyla SMITH MD Attending Provider Active Start: October 05, 2024 Team Status: Active Member Role/Relationship Status Dates Dr. Sheyla Mcgee MD Primary Care Provider Active Start: October 12, 2024 Sheyla SMITH MD Attending Provider Active Start: October 12, 2024 Team Status: Active Member Role/Relationship Status Dates Dr. Sheyla Mcgee MD Primary Care Provider Active Start: October 19, 2024 Sheyla SMITH MD Attending Provider Active Start: October 19, 2024 Team Status: Active Member Role/Relationship Status Dates Dr. Sheyla Mcgee MD Primary Care Provider Active Start: October 26, 2024 Sheyla SMITH MD Attending Provider Active Start: October 26, 2024 Team Status: Inactive Member Role/Relationship Status Dates Dr. Sheyla Mcgee MD Primary Care Provider Active Start: September 28, 2024 End: September 28, 2024 Aiden Mcgrath WOUND SPECIALIST, WOUND SPECIALIST-C Attending Provider Active Start: September 28, 2024 End: September 28, 2024 Team Status: Active Member Role/Relationship Status Dates Dr. Sheyla Mcgee MD Primary Care Provider Active Start: October 05, 2024 Sheyla SMITH MD Attending Provider Active Start: October 05, 2024 Team Status: Active Member Role/Relationship Status Dates Dr. Sheyla Mcgee MD Primary Care Provider Active Start: October 12, 2024 Sheyla SMITH MD Attending Provider Active Start: October 12, 2024 Team Status: Active Member Role/Relationship Status Dates Dr. Sheyla Mcgee MD Primary Care Provider Active Start: October 19, 2024 Sheyla SMITH MD Attending Provider Active Start: October 19, 2024 Team Status: Active Member Role/Relationship Status Dates Dr. Sheyla Mcgee MD Primary Care Provider Active Start: October 26, 2024 Sheyla SMITH MD Attending Provider Active Start: October 26, 2024 Team Status: Inactive Member Role/Relationship Status Dates Dr. Sheyla Mcgee MD Primary Care Provider Active Start: September 29, 2024 End: September 29, 2024 Dr. Sheyla Mcgee MD Attending Provider Active Start: September 29, 2024 End: September 29, 2024 Team Status: Active Member Role/Relationship Status Dates Dr. Sheyla Mcgee MD Primary Care Provider Active Start: October 05, 2024 Sheyla SMITH MD Attending Provider Active Start: October 05, 2024 Team Status: Active Member Role/Relationship Status Dates Dr. Sheyla Mcgee MD Primary Care Provider Active Start: October 12, 2024 Sheyla SMITH MD Attending Provider Active Start: October 12, 2024 Team Status: Active Member Role/Relationship Status Dates Dr. Sheyla Mcgee MD Primary Care Provider Active Start: October 19, 2024 Sheyla SMITH MD Attending Provider Active Start: October 19, 2024 Team Status: Active Member Role/Relationship Status Dates Dr. Sheyla Mcgee MD Primary Care Provider Active Start: October 26, 2024 Sheyla SMITH MD Attending Provider Active Start: October 26, 2024 Team Status: Inactive Member Role/Relationship Status Dates Dr. Sheyla Mcgee MD Primary Care Provider Active Start: September 30, 2024 End: September 30, 2024 Aiden cMgrath NP WOUND SPECIALIST-C Attending Provider Active Start: September 30, 2024 End: September 30, 2024 Team Status: Active Member Role/Relationship Status Dates Dr. Sheyla Mcgee MD Primary Care Provider Active Start: October 05, 2024 Sheyla SMITH MD Attending Provider Active Start: October 05, 2024 Team Status: Active Member Role/Relationship Status Dates Dr. Sheyla Mcgee MD Primary Care Provider Active Start: October 12, 2024 Sheyla SMITH MD Attending Provider Active Start: October 12, 2024 Team Status: Active Member Role/Relationship Status Dates Dr. Sheyla Mcgee MD Primary Care Provider Active Start: October 19, 2024 Sheyla SMITH MD Attending Provider Active Start: October 19, 2024 Team Status: Active Member Role/Relationship Status Dates Dr. Sheyla Mcgee MD Primary Care Provider Active Start: October 26, 2024 Sheyla SMITH MD Attending Provider Active Start: October 26, 2024 Team Status: Inactive Member Role/Relationship Status Dates Dr. Sheyla Mcgee MD Primary Care Provider Active Start: October 01, 2024 End: October 01, 2024 Aiden Mcgrath NP, WOUND SPECIALIST-C Attending Provider Active Start: October 01, 2024 End: October 01, 2024 Team Status: Active Member Role/Relationship Status Dates Dr. Sheyla Mcgee MD Primary Care Provider Active Start: October 05, 2024 Sheyla SMITH MD Attending Provider Active Start: October 05, 2024 Team Status: Active Member Role/Relationship Status Dates Dr. Sheyla Mcgee MD Primary Care Provider Active Start: October 12, 2024 Sheyla SMITH MD Attending Provider Active Start: October 12, 2024 Team Status: Active Member Role/Relationship Status Dates Dr. Sheyla Mcgee MD Primary Care Provider Active Start: October 19, 2024 Sheyla SMITH MD Attending Provider Active Start: October 19, 2024 Team Status: Active Member Role/Relationship Status Dates Dr. Sheyla Mcgee MD Primary Care Provider Active Start: October 26, 2024 Sheyla SMITH MD Attending Provider Active Start: October 26, 2024 Team Status: Inactive Member Role/Relationship Status Dates Dr. Sheyla Mcgee MD Primary Care Provider Active Start: October 12, 2024 End: October 12, 2024 Aiden Mcgrath WOUND SPECIALIST, WOUND SPECIALIST-C Attending Provider Active Start: October 12, 2024 End: October 12, 2024 Team Status: Active Member Role/Relationship Status Dates Dr. Sheyla Mcgee MD Primary Care Provider Active Start: October 19, 2024 Sheyla SMITH MD Attending Provider Active Start: October 19, 2024 Team Status: Active Member Role/Relationship Status Dates Dr. Sheyla Mcgee MD Primary Care Provider Active Start: October 26, 2024 Sheyla SMITH MD Attending Provider Active Start: October 26, 2024 Team Status: Inactive Member Role/Relationship Status Dates Dr. Sheyla Mcgee MD Primary Care Provider Active Start: October 20, 2024 Dr. Shireen Marley MD Attending Provider Active Start: October 20, 2024 Team Status: Active Member Role/Relationship Status Dates Dr. Sheyla Mcgee MD Primary Care Provider Active Start: October 26, 2024 Sheyla SMITH MD Attending Provider Active Start: October 26, 2024 Team Status: Inactive Member Role/Relationship Status Dates Dr. Sheyla Mcgee MD Primary Care Provider Active Start: November 13, 2024 End: November 13, 2024 Dr. Erica Richardson DO Attending Provider Active St art: November 13, 2024 End: November 13, 2024 Dr. Erica Richardson DO Referring Provider Active St art: November 13, 2024 End: November 13, 2024 Goals (unrecognized section and content) Goals [...] BE BASED ON THE PRIMARY CLINICAL RECORDS. [employer] [facility]. provides no warranty or guarantee of the accuracy or completeness of information in this document.
--- OUTSIDE RECORDS SUMMARY | 2024-11-25 22:40 | XMS RPT_ITS | CCD ---
Author Organization [facility] Care Team Providers Care Internet Cafe Manager Name Role Phone Unavailable Primary Care Provider Erica Moses DO Primary Care Provider Dr. Erica Richardson Primary Care Provider [phone] Dr. Erica Richardson Referring Provider [phone] Don Gallegos Attending Provider [phone] Don Gallegos Attending Provider Alcides 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, 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-C Aiden Attending Provider Kyav Dr. Erica Batista Primary Care Provider Erica Richardson DO Primary Care Provider Erica Richardson DO Primary Care Provider [phone] ERICA RICHARDSON Primary Care Unavailable DEBRA, ERICA Shannon Primary Care Unavailable BOAZ GRIMALDO Referring Unavailable DEBRA, ERICA Shannon Referring Unavailable ALL TSANG Attending Unavailable ERICA RICHARDSON Primary Care Unavailable DEBRA, ERICA Shannon Primary Care Unavailable SHERICE ROSENBERG Attending Unavailable ERICA RICHARDSON Primary Care Unavailable SAUNDRA HORNER Consulting Unavailab ROJAS Kimball Attending DENYS Johnston Admitting Unavailable Dr. Erica Richardson Primary Care Provider Alcides 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, 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-C Aiden Attending Provider Unav Erica Batista DO Primary Care Provider Dr. Froy Simmons Attending Provider Dr. Erica Richardson Primary Care Provider [phone] Dr. Froy Simmons Attending Provider Liborioys, Dr. [...] Provider Malys DO, Dr. Maldonado Referring Provider [facility], Dr. Mcduffie Attending Provider Leia Martinez [...] Provider Sheyla Mcgee MD Attending Provider Unavailshiva Mgcee MD, Sheyla Referring Provider Avinash Mcgrath NP-C, Aiden Attending Provider Arely CRAMER, Dr. Carrion Attending Provider Ayaka CRAMER, Dr. Iyer Attending Provider [phone] Malys, Erica Attending Unavailable Malys, Erica Primary [...] Care Unavailable Malys, Erica Attending Unavailable [place]ton 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, Aiden Attending Unavailable Oleghe, Efewongbe Primary Care Unavailable [place] 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, Aiden Attending Unavailable Oleghe, Efewongbe Primary Care Unavailable Oleghe, Efewongbe Primary Care Unavailable Oleghe, Efewongbe Attending Unavailable [place] 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, Aiden Attending Unavailable Oleghe, Efewongbe Primary Care [...] Attending Unavailable Jopperi, Froy Consulting Unavailable [place] 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, Aiden Attending Unavailable Oleghe, Efewongbe Primary Care [...] adverse reactions to drug 04-16-20 20 Palpitations [place], [place] (20 sources) bacitracin / neomycin / polymyxin b; Translations: [NEOMYCIN-BACITRAC IN-POLYMYXIN] Drug Allergy 08-15-19 07 [facility] Work Phone: (20 sources) diphenhydrAMINE; Translations: [DIPHENHYDRAMINE HCL] Drug Allergy 10-28-19 13 [facility] (20 sources) Propylamine derivative antihistamine; Translations: [ANTIHISTAMINES - ALKYLAMINE] Propensity to adverse reactions 10-07-19 08 Intolerance [facility] (20 sources) Bacitracin Drug Allergy 08-08-19 22 Unknown [facility] (20 sources) Neomycin Drug Allergy 08-08-19 22 Unknown [facility] (20 sources) Polymyxin B Drug Allergy 08-08-19 22 Unknown [facility] (20 sources) diphenhydrAMINE Drug Allergy 01-11-20 22 PT UNSURE OF REACTION [facility] (20 sources) Antihistamines - Alkylamine Allergy to substance 01-11-20 22 PT UNSURE OF REACTION [facility] (1 source) Bacitracin Drug Allergy 09-23-19 25 [facility]ository (1 source) diphenhydrAMINE Drug Allergy 09-23-19 25 [facility] (1 source) Neomycin Drug Allergy 09-23-19 25 [facility] (1 source) Antihistamines - Alkylamine Drug allergy (disorder) 09-23-19 25 [facility] (1 source) polymyxin B Drug allergy (disorder) 09-23-19 25 [facility] Medications Current Medications Medication Drug [...] every 6 hours as needed for pain. [id number] actuat albuterol 0.09 mg/actuat metered dose [...] oral tablet (18 sources) Dihydropyridine Calcium Channel Acrli Start: 11-22-2022 take 1 tablet by mouth [...] on above: Take 1 capsule by mo [facility] once daily. Calcium Carb And Citrate-Vitd3 [...] 3:58pm Start: 08-07-2021 take 1 tablet by [facility] once daily Calcium Carb And Citrate-Vitd3 (Citracal-D3 Slow Release) 600 mg-12.5 mcg (500 unit) tablet extended release Active 1 TABLET PO DAILY August 06, 2021 11:00pm Start: 08-07-2021 take 1 tablet by [facility] once daily Calcium Carb And Citrate-Vitd3 (Citracal-D3 [...] needed. docusate sodium 50 mg / sennosides, [facility] 8.6 mg oral tablet (1 source) Start: [...] hydrochloride 5 mg oral tablet (20 sources) Q-lmvlzd-X-aspartate Receptor Antagonist Start: 3 take 1 tablet [...] inje ction 32.5 mg polyethylene glycol 3350 59084 mg powder for oral solution (20 sources) [...] on above: Take 1 capsule by mo [facility] three times daily as needed [...] on above: Take 2 tablets by mo [facility] once daily. calcium gluconate 1 [...] Comment on above: Take one tablet by [facility] four times daily as needed. Take 1 [...] tablet by aileen th once daily. Vitamins A,C,M-Rylv-Tumwtg ([facility]) 14,320-226-200 xarv-zh-joby capsule (20 sources) Start: 05-01-2017 End: 09-09-2019 take 1 capsule by mouth once daily Vitamins A,C,U-Alar-Cefjuw ([facility]) 14,320-226-200 krly-xv-jelc capsule Discontinued 1 CAP PO DAILY May 01, 2017 10:26am September 09, 2019 8:44pm Start: 05-01-2017 End: 09-09-2019 Vitamins A,C,F-Mlmd-Ntylre ([facility]) 14,320-226-200 vjgk-zf-ewim capsule Discontinued 1 NMA PO DAILY 0 May 01, 2017 1:00am September 09, 2019 8:44pm Start: 05-01-2017 End: 09-09-2019 Vitamins A,C,M-Cynm-Oioglv ([facility]) 14,320-226-200 kfpv-bb-wqrg capsule Discontinued 1 NMA PO DAILY May 01, 2017 1:00am September 09, 2019 8:44pm Start: 05-01-2017 End: 09-09-2019 take 1 capsule by mouth once daily Vitamins A,C,L-Tcxe-Hvqmhz ([facility]) 14,320-226-200 josz-ev-wxwj capsule Discontinued 1 CAP PO DAILY May 01, 2017 12:00am September 09, 2019 7:44pm Start: 05-01-2017 End: 09-09-2019 take 1 capsule by mouth once daily Vitamins A,C,O-Rmmw-Efacgd ([facility]) 14,320-226-200 itac-uh-akdl capsule Discontinued 1 CAP PO DAILY May [...] vertebra, unspecified cervical vertebral level, initial encounter ([facility])] Onset: 10-07-2021 Episodic Other injuries and conditions [...] on 11-13-2024 Bilirubin Ql (U) Negative Negative [facility] Ketones Test strip Ql (U)Ord ered By: Erica Richardson on 11-13-2024 Ketones Ql (U) Negative Negative [facility] Microscopic analysis of urin e for red blood cells (RBC)Ordered By: Ericashiva Richardson on 11-13-2024 Microscopic analysis of urine for red blood cells (RBC) 0 SEEN /hpf 0-5 [facility] Mucus LM Ql (Urine sed)Order ed By: Erica Liboriohattie on 11-13-2024 Mucus Ql (Urine sed) 0 SEEN /hpf [facility] Nitrite Test strip Ql (U)Ord ered By: Erica Liboriohattie on 11-13-2024 Nitrite Ql (U) Negative Negative [facility] Protein Test strip Ql (U)Ord ered By: Erica Richardson on 11-13-2024 Protein Ql (U) 100 mg/dl High Negative [facility] Squamous epithelial cells de tection in urine sediment by light microscopyOrdered By: Erica Richardson on 11-13-2024 Epithelial cells.squamous LM Ql (Urine sed) 0 SEEN /hpf 5- [facility] Urinalysis, Completeon 11-13 WBC >100 SEEN Normal 0-5 [facility] Comment on above: Order Comment: CLEAN CATCH Performed By: #### L [id number], [id number], L100.0100 #### [facility] [address] [place], [address] BACTERIA 0 SEEN Normal None Seen [facility] Comment on above: Order Comment: CLEAN CATCH Performed By: #### L [id number], [id number], L100.0100 #### [facility] [address] [place], [address] EPI,SQUAMOUS 0 SEEN Normal - [facility] Comment on above: Order Comment: CLEAN CATCH Performed By: #### L [id number], [id number], L100.0100 #### [facility] [address] [place], [address] Mucus Ql (Urine sed) 0 SEEN Normal [facility] Comment on above: Order Comment: CLEAN CATCH Performed By: #### L [id number], [id number], L100.0100 #### [facility] [address] [place], [address] RBC 0 SEEN Normal 0-5 [facility] Comment on above: Order Comment: CLEAN CATCH Performed By: #### L [id number], [id number], L100.0100 #### [facility] [address] [place], [address] Urine clarityOrdered By: Elena Richardson on 11-13-2024 Clarity (U) Cloudy Clear [facility] Urine color determinationOrd ered By: Erica Richardson on 11-13-2024 Color (U) Straw Yellow [facility] Urine glucose detectionOrder ed By: Erica Richardson on 11-13-2024 Glucose Ql (U) Normal mg/dl Normal [facility] Urine leukocyte esterase det ection by dipstickOrdered By: Erica Richardson on 11-13-2024 Leukocyte esterase Test strip Ql (U) 500 /ul High Negative [facility] Urine pHOrdered By: Erica kuhn on 11-13-2024 pH (U) 7.0 [pH] 5.0 - 8.0 [facility] Urine sediment bacteria coun t by microscopy (number/high power field)Ordered By: Erica Richardson on 11-13-2024 Bacteria LM.HPF (Urine sed) [#/Area] 0 /[HPF] None Seen [facility] Urine specific gravity measu rementOrdered By: Erica Richardson on 11-13-2024 Specific gravity (U) [Rel density] 1.010 1.002-1.030 [facility] Urine urobilinogen measureme ntOrdered By: Erica Richardson on 11-13-2024 Urobilinogen Ql (U) Normal mg/dl Normal [facility] White blood cell countOrdere d By: Erica Richardson on 11-13-2024 White blood cell count >100 SEEN /hpf 0-5 [facility] Absolute lymphocyte countOrd ered By: Sheyla Mcgee on 10-26-2024 Lymphocytes Auto (Unsp spec) [#/Vol] 1.94 10*3/uL 0.83-4.51 [facility] Absolute neutrophil countOrd ered By: Sheyla Mcgee on 10-26-2024 Neutrophils (Bld) [#/Vol] 4.5 10*3/uL 2.0-7.7 [facility] Anion gap in Serum or Plasma Ordered By: Sheyla Mcgee on 10-26-2024 Anion gap [Moles/Vol] 13 mmol/L 5-15 [facility] Automated lymphocyte count a s percentage of total leukocytesOrdered By: Sheyla Mcgee on 10-26-2024 Lymphocytes/100 WBC Auto (Unsp spec) 25.1 % 19-41 [facility] BUN/creatinine ratioOrdered By: Sheyla Mcgee on 10-26-2024 Urea nitrogen/Creatinine [Mass ratio] 23.7 mg/mg High 10-20 [facility] Basophil percentageOrdered B y: Sheyla Mcgee on 10-26-2024 Basophils/100 WBC (Bld) 1.2 % High 0-1 [facility] Carbon dioxide, total [Moles /volume] in Central venous bloodOrdered By: Sheyla Mcgee on 10-26-2024 CO2 [Moles/Vol] 24.2 mmol/L 21.0-32.0 [facility] Chloride assayOrdered By: Francisco Mcgee on 10-26-2024 Chloride [Moles/Vol] 102 mmol/L 98-108 [facility] Eosinophil percentageOrdered By: Sheyla Mcgee on 10-26-2024 Eosinophils/100 WBC (Bld) 5.7 % High 0-5 [facility] Erythrocyte distribution wid th ratioOrdered By: dorian Mcgee on 10-26-2024 Erythrocyte distribution width (RBC) [Ratio] 13.2 % 11.6-14.6 [facility] Erythrocyte distribution wid th standard deviationOrdered By: aaroncereskateryna Mcgee on 10-26-2024 Erythrocyte distribution width (RBC) [Ratio] 47.5 fl High 35.1-43.9 [facility] Glomerular filtration rate ( GFR) estimation/1.73 sq m using serum, plasma, or whole bOrdered By: Sheyla Mcgee on 10-26-2024 GFR/1.73 sq M.predicted among non-blacks MDRD (S/P/Bld) [Vol rate/Area] 88 mL/min/{1.73_m2} >60 [facility] Comment on above: mL/min/1.73m2 CKD-EP I Creatinine Equation (2020) Hematocrit Auto (Bld) [Volum e fraction]Ordered By: Sheyla Mcgee on 10-26-2024 Hematocrit (Bld) [Volume fraction] 34.5 % Low 37-47 [facility] Hemoglobin measurementOrdere d By: [facility] on 10-26-2024 Hemoglobin (Bld) [Mass/Vol] 10.9 g/dL Low 12.0-15.0 [facility] Immature granulocytes/100 WB C Auto (Bld)Ordered By: aaroncereskateryna Mcgee on 10-26-2024 Immature granulocytes/100 WBC (Bld) 0.600 % 0.0-0.9 [facility] Comment on above: IG% - Immature Granu locytes (promyelocytes, myelocytes and metamyelocytes) > 1% indicates that a LEFT SHIFT is Present. MCV (mean corpuscular volume ) determinationOrdered By: Sheyla Mcgee on 10-26-2024 MCV (RBC) [Entitic vol] 98.3 fL 81-99 [facility] Mean corpuscular hemoglobin (MCH) determinationOrdered By: aaroncereskateryna Mcgee on 10-26-2024 MCH (RBC) [Entitic mass] 31.1 pg 27.0-32.0 [facility] Mean corpuscular hemoglobin concentration (MCHC) determinationOrdered By: aaroncereskateryna Mcgee on 10-26-2024 MCHC (RBC) [Mass/Vol] 31.6 g/dL Low 32-36 [facility] Mean platelet volume determi nationOrdered By: Sheyla Mcgee on 10-26-2024 Platelet mean volume (Bld) [Entitic vol] 11.8 fL 6.2-12.0 [facility] Monocyte percentageOrdered B y: Sheyla Mcgee on 10-26-2024 Monocytes/100 WBC (Bld) 9.2 % 0-10 [facility] Neutrophil percentageOrdered By: Sheyla Mcgee on 10-26-2024 Neutrophils/100 WBC (Bld) 58.2 % 47-70 [facility] Nucleated red blood cell per centageOrdered By: Sheyla Mcgee on 10-26-2024 Nucleated RBC/100 WBC (Bld) [Ratio] 0 % 0-5 [facility] Platelet countOrdered By: Francisco Mcgee on 10-26-2024 Platelets (Bld) [#/Vol] 229 10*3/uL 150-450 [facility] Potassium measurement (mass/ volume)Ordered By: Sheyla Mcgee on 10-26-2024 Potassium (Unsp spec) [Mass/Vol] 4.1 mmol/L 3.3-5.1 [facility] RBC Auto (Bld) [#/Vol]Ordere d By: Sheyla Mcgee on 10-26-2024 RBC (Bld) [#/Vol] 3.51 10*6/uL Low 4.2-5.4 [facility] Serum creatinine measurement (mass/volume)Ordered By: Sheyla Mcgee on 10-26-2024 Creatinine [Mass/Vol] 0.71 mg/dL 0.70-1.20 [facility] Serum glucose measurement (m ass/volume)Ordered By: Sheyla Mcgee on 10-26-2024 Glucose [Mass/Vol] 96 mg/dL 70-99 [facility] Serum or plasma calcium rajni urement (mass/volume)Ordered By: Sheyla Mcgee on 10-26-2024 Calcium [Mass/Vol] 8.3 mg/dL 7.6-11.0 [facility] Serum or plasma urea nitroge n measurement (mass/volume)Ordered By: Sheyla Mcgee on 10-26-2024 Urea nitrogen [Mass/Vol] 17 mg/dL 4-19 [facility] Sodium levelOrdered By: Jonathan Mcgee on 10-26-2024 Sodium [Moles/Vol] 140 mmol/L 133-145 [facility] White blood cell (WBC) count Ordered By: Sheyla Mcgee on 10-26-2024 WBC (Bld) [#/Vol] 7.7 10*3/uL 4.4-11.0 [facility] Absolute lymphocyte countOrd ered By: Sheyla Mcgee on 10-19-2024 Lymphocytes Auto (Unsp spec) [#/Vol] 1.60 10*3/uL 0.83-4.51 [facility] Absolute neutrophil countOrd ered By: dorian Mcgee on 10-19-2024 Neutrophils (Bld) [#/Vol] 4.9 10*3/uL 2.0-7.7 [facility] Anion gap in Serum or Plasma Ordered By: Sheyla Mcgee on 10-19-2024 Anion gap [Moles/Vol] 12 mmol/L 5-15 [facility] Automated lymphocyte count a s percentage of total leukocytesOrdered By: Sheyla Donnellyabdirahman on 10-19-2024 Lymphocytes/100 WBC Auto (Unsp spec) 20.6 % 19-41 [facility] BUN/creatinine ratioOrdered By: aaroncereskateryna Mcgee on 10-19-2024 Urea nitrogen/Creatinine [Mass ratio] 18.3 mg/mg 10-20 [facility] Basophil percentageOrdered B y: Sheyla Mcgee on 10-19-2024 Basophils/100 WBC (Bld) 0.8 % 0-1 [facility] Carbon dioxide, total [Moles /volume] in Central venous bloodOrdered By: dorian Mcgee on 10-19-2024 CO2 [Moles/Vol] 26.1 mmol/L 21.0-32.0 [facility] Chloride assayOrdered By: dorian Donnellyabdirahman on 10-19-2024 Chloride [Moles/Vol] 103 mmol/L 98-108 [facility] Eosinophil percentageOrdered By: dorian Mcgee on 10-19-2024 Eosinophils/100 WBC (Bld) 6.3 % High 0-5 [facility] Erythrocyte distribution wid th ratioOrdered By: dorian Donnellyabdirahman on 10-19-2024 Erythrocyte distribution width (RBC) [Ratio] 13.2 % 11.6-14.6 [facility] Erythrocyte distribution wid th standard deviationOrdered By: Sheyla Mcgee on 10-19-2024 Erythrocyte distribution width (RBC) [Ratio] 47.0 fl High 35.1-43.9 [facility] Glomerular filtration rate ( GFR) estimation/1.73 sq m using serum, plasma, or whole bOrdered By: Sheyla Mcgee on 10-19-2024 GFR/1.73 sq M.predicted among non-blacks MDRD (S/P/Bld) [Vol rate/Area] 90 mL/min/{1.73_m2} >60 [facility] Comment on above: mL/min/1.73m2 CKD-EP I Creatinine Equation (2020) Hematocrit Auto (Bld) [Volum e fraction]Ordered By: Sheyla Mcgee on 10-19-2024 Hematocrit (Bld) [Volume fraction] 35.7 % Low 37-47 [facility] Hemoglobin measurementOrdere d By: Sheyla Mcgee on 10-19-2024 Hemoglobin (Bld) [Mass/Vol] 11.7 g/dL Low 12.0-15.0 [facility] Immature granulocytes/100 WB C Auto (Bld)Ordered By: Sheyla Mcgee on 10-19-2024 Immature granulocytes/100 WBC (Bld) 0.400 % 0.0-0.9 [facility] Comment on above: IG% - Immature Granu locytes (promyelocytes, myelocytes and metamyelocytes) > 1% indicates that a LEFT SHIFT is Present. MCV (mean corpuscular volume ) determinationOrdered By: Sheyla Mcgee on 10-19-2024 MCV (RBC) [Entitic vol] 96.2 fL 81-99 [facility] Mean corpuscular hemoglobin (MCH) determinationOrdered By: Sheyla Mcgee on 10-19-2024 MCH (RBC) [Entitic mass] 31.5 pg 27.0-32.0 [facility] Mean corpuscular hemoglobin concentration (MCHC) determinationOrdered By: Sheyla Mcgee on 10-19-2024 MCHC (RBC) [Mass/Vol] 32.8 g/dL 32-36 [facility] Mean platelet volume determi nationOrdered By: Sheyla Mcgee on 10-19-2024 Platelet mean volume (Bld) [Entitic vol] 11.4 fL 6.2-12.0 [facility] Monocyte percentageOrdered B y: Jonathanestivenkateryna Gejuan mabdirahman on 10-19-2024 Monocytes/100 WBC (Bld) 8.5 % 0-10 [facility] Neutrophil percentageOrdered By: Sheyla Mcgee on 10-19-2024 Neutrophils/100 WBC (Bld) 63.4 % 47-70 [facility] Nucleated red blood cell per centageOrdered By: Sheyla Mcgee on 10-19-2024 Nucleated RBC/100 WBC (Bld) [Ratio] 0 % 0-5 [facility] Platelet countOrdered By: Francisco aaroncarl Mcgee on 10-19-2024 Platelets (Bld) [#/Vol] 256 10*3/uL 150-450 [facility] Potassium measurement (mass/ volume)Ordered By: Sheyla Mcgee on 10-19-2024 Potassium (Unsp spec) [Mass/Vol] 3.8 mmol/L 3.3-5.1 [facility] RBC Auto (Bld) [#/Vol]Ordere d By: Sheyla Mcgee on 10-19-2024 RBC (Bld) [#/Vol] 3.71 10*6/uL Low 4.2-5.4 [facility] Serum creatinine measurement (mass/volume)Ordered By: Shelya Mcgee on 10-19-2024 Creatinine [Mass/Vol] 0.68 mg/dL Low 0.70-1.20 [facility] Serum glucose measurement (m ass/volume)Ordered By: Sheyla Mcgee on 10-19-2024 Glucose [Mass/Vol] 97 mg/dL 70-99 [facility] Serum or plasma calcium rajni urement (mass/volume)Ordered By: Sheyla Mcgee on 10-19-2024 Calcium [Mass/Vol] 8.1 mg/dL 7.6-11.0 [facility] Serum or plasma urea nitroge n measurement (mass/volume)Ordered By: Sheyla Mcgee on 10-19-2024 Urea nitrogen [Mass/Vol] 12 mg/dL 4-19 [facility] Sodium levelOrdered By: Jonathan Mcgee on 10-19-2024 Sodium [Moles/Vol] 141 mmol/L 133-145 [facility] White blood cell (WBC) count Ordered By: Sheyla Mcgee on 10-19-2024 WBC (Bld) [#/Vol] 7.8 10*3/uL 4.4-11.0 [facility] Absolute lymphocyte countOrd ered By: Sheyla Mcgee on 10-12-2024 Lymphocytes Auto (Unsp spec) [#/Vol] 1.84 10*3/uL 0.83-4.51 [facility] Absolute neutrophil countOrd ered By: Sheyla Mcgee on 10-12-2024 Neutrophils (Bld) [#/Vol] 7.6 10*3/uL 2.0-7.7 [facility] Anion gap in Serum or Plasma Ordered By: Sheyla Mcgee on 10-12-2024 Anion gap [Moles/Vol] 14 mmol/L 5-15 [facility] Automated lymphocyte count a s percentage of total leukocytesOrdered By: Sheyla Mcgee on 10-12-2024 Lymphocytes/100 WBC Auto (Unsp spec) 16.7 % Low 19-41 [facility] BUN/creatinine ratioOrdered By: Sheyla Mcgee on 10-12-2024 Urea nitrogen/Creatinine [Mass ratio] 28.8 mg/mg High 10-20 [facility] Basophil percentageOrdered B y: Sheyla Mcgee on 10-12-2024 Basophils/100 WBC (Bld) 0.7 % 0-1 [facility] Carbon dioxide, total [Moles /volume] in Central venous bloodOrdered By: Sheyla Mcgee on 10-12-2024 CO2 [Moles/Vol] 23.6 mmol/L 21.0-32.0 [facility] Chloride assayOrdered By: Francisco Mcgee on 10-12-2024 Chloride [Moles/Vol] 104 mmol/L 98-108 [facility] Eosinophil percentageOrdered By: Sheyla Mcgee on 10-12-2024 Eosinophils/100 WBC (Bld) 5.3 % High 0-5 [facility] Erythrocyte distribution wid th ratioOrdered By: Sheyla Mcgee on 10-12-2024 Erythrocyte distribution width (RBC) [Ratio] 13.2 % 11.6-14.6 [facility] Erythrocyte distribution wid th standard deviationOrdered By: Sheyla Mcgee on 10-12-2024 Erythrocyte distribution width (RBC) [Ratio] 47.8 fl High 35.1-43.9 [facility] Glomerular filtration rate ( GFR) estimation/1.73 sq m using serum, plasma, or whole bOrdered By: Sheyla Mcgee on 10-12-2024 GFR/1.73 sq M.predicted among non-blacks MDRD (S/P/Bld) [Vol rate/Area] 78 mL/min/{1.73_m2} >60 [facility] Comment on above: mL/min/1.73m2 CKD-EP I Creatinine Equation (2020) Hematocrit Auto (Bld) [Volum e fraction]Ordered By: Jonathancereskateryna Mcgee on 10-12-2024 Hematocrit (Bld) [Volume fraction] 38.8 % 37-47 [facility] Hemoglobin measurementOrdere d By: Sheyla Mcgee on 10-12-2024 Hemoglobin (Bld) [Mass/Vol] 12.6 g/dL 12.0-15.0 [facility] Immature granulocytes/100 WB C Auto (Bld)Ordered By: Sheyla Mcgee 10-12-2024 Immature granulocytes/100 WBC (Bld) 0.500 % 0.0-0.9 [facility] Comment on above: IG% - Immature Granu locytes (promyelocytes, myelocytes and metamyelocytes) > 1% indicates that a LEFT SHIFT is Present. MCV (mean corpuscular volume ) determinationOrdered By: Sheyla Mcgee on 10-12-2024 MCV (RBC) [Entitic vol] 98.5 fL 81-99 [facility] Mean corpuscular hemoglobin (MCH) determinationOrdered By: Sheyla Mcgee 10-12-2024 MCH (RBC) [Entitic mass] 32.0 pg 27.0-32.0 [facility] Mean corpuscular hemoglobin concentration (MCHC) determinationOrdered By: Sheyla Mcgee on 10-12-2024 MCHC (RBC) [Mass/Vol] 32.5 g/dL 32-36 [facility] Mean platelet volume determi nationOrdered By: Sheyla Mcgee on 10-12-2024 Platelet mean volume (Bld) [Entitic vol] 11.9 fL 6.2-12.0 [facility] Monocyte percentageOrdered B y: Sheyla Mcgee on 10-12-2024 Monocytes/100 WBC (Bld) 8.4 % 0-10 [facility] Neutrophil percentageOrdered By: Jonathancereskateryna Mcgee on 10-12-2024 Neutrophils/100 WBC (Bld) 68.4 % 47-70 [facility] Nucleated red blood cell per centageOrdered By: Sheyla Mcgee on 10-12-2024 Nucleated RBC/100 WBC (Bld) [Ratio] 0 % 0-5 [facility] Platelet countOrdered By: Francisco aaroncarl Mcgee on 10-12-2024 Platelets (Bld) [#/Vol] 320 10*3/uL 150-450 [facility] Potassium measurement (mass/ volume)Ordered By: Sheyla Mcgee on 10-12-2024 Potassium (Unsp spec) [Mass/Vol] 4.2 mmol/L 3.3-5.1 [facility] Comment on above: Hemolysis present, R esults could be affected. RBC Auto (Bld) [#/Vol]Ordere d By: Sheyla Mcgee on 10-12-2024 RBC (Bld) [#/Vol] 3.94 10*6/uL Low 4.2-5.4 [facility] Serum creatinine measurement (mass/volume)Ordered By: Sheyla Mcgee on 10-12-2024 Creatinine [Mass/Vol] 0.78 mg/dL 0.70-1.20 [facility] Serum glucose measurement (m ass/volume)Ordered By: Sheyla Mcgee on 10-12-2024 Glucose [Mass/Vol] 91 mg/dL 70-99 [facility] Serum or plasma calcium rajni urement (mass/volume)Ordered By: Sheyla Donnellyabdirahman on 10-12-2024 Calcium [Mass/Vol] 8.0 mg/dL 7.6-11.0 [facility] Serum or plasma urea nitroge n measurement (mass/volume)Ordered By: Franciscodorian Gejuan mabdirahman on 10-12-2024 Urea nitrogen [Mass/Vol] 23 mg/dL High 4-19 [facility] Sodium levelOrdered By: Jonathan henry Joojuan mabdirahman on 10-12-2024 Sodium [Moles/Vol] 142 mmol/L 133-145 [facility] White blood cell (WBC) count Ordered By: Franciscoaaronestivenkateryna Gejuan mabdirahman on 10-12-2024 WBC (Bld) [#/Vol] 11.0 10*3/uL 4.4-11.0 [facility] Absolute lymphocyte countOrd ered By: Franciscoaaroncarl Joojuan mabdirahman on 10-05-2024 Lymphocytes Auto (Unsp spec) [#/Vol] 2.23 10*3/uL 0.83-4.51 [facility] Absolute neutrophil countOrd ered By: Sheyla Joopoli on 10-05-2024 Neutrophils (Bld) [#/Vol] 5.3 10*3/uL 2.0-7.7 [facility] Anion gap in Serum or Plasma Ordered By: Jonathancarl Joojuan mabdirahman on 10-05-2024 Anion gap [Moles/Vol] 14 mmol/L 5-15 [facility] Automated lymphocyte count a s percentage of total leukocytesOrdered By: Jonathanestivenkateryna Gejuan mabdirahman on 10-05-2024 Lymphocytes/100 WBC Auto (Unsp spec) 24.3 % 19-41 [facility] BUN/creatinine ratioOrdered By: Sheyla Joojuan mabdirahman on 10-05-2024 Urea nitrogen/Creatinine [Mass ratio] 23.9 mg/mg High 10-20 [facility] Basophil percentageOrdered B y: Bashirkateryna Gejuan mabdirahman on 10-05-2024 Basophils/100 WBC (Bld) 1.2 % High 0-1 [facility] Carbon dioxide, total [Moles /volume] in Central venous bloodOrdered By: Sheyla Mcgee on 10-05-2024 CO2 [Moles/Vol] 25.1 mmol/L 21.0-32.0 [facility] Chloride assayOrdered By: Francisco Mcgee on 10-05-2024 Chloride [Moles/Vol] 103 mmol/L 98-108 [facility] Eosinophil percentageOrdered By: Sheyla Mcgee on 10-05-2024 Eosinophils/100 WBC (Bld) 8.3 % High 0-5 [facility] Erythrocyte distribution wid th ratioOrdered By: aaroncereskateryna Mcgee on 10-05-2024 Erythrocyte distribution width (RBC) [Ratio] 13.2 % 11.6-14.6 [facility] Erythrocyte distribution wid th standard deviationOrdered By: aaroncereskateryna Mcgee on 10-05-2024 Erythrocyte distribution width (RBC) [Ratio] 47.4 fl High 35.1-43.9 [facility] Glomerular filtration rate ( GFR) estimation/1.73 sq m using serum, plasma, or whole bOrdered By: Sheyla Mcgee on 10-05-2024 GFR/1.73 sq M.predicted among non-blacks MDRD (S/P/Bld) [Vol rate/Area] 91 mL/min/{1.73_m2} >60 [facility] Comment on above: mL/min/1.73m2 CKD-EP I Creatinine Equation (2020) Hematocrit Auto (Bld) [Volum e fraction]Ordered By: dorian Mcgee on 10-05-2024 Hematocrit (Bld) [Volume fraction] 37.8 % 37-47 [facility] Hemoglobin measurementOrdere d By: dorian Mcgee on 10-05-2024 Hemoglobin (Bld) [Mass/Vol] 12.4 g/dL 12.0-15.0 [facility] Immature granulocytes/100 WB C Auto (Bld)Ordered By: Sheyla Mcgee on 10-05-2024 Immature granulocytes/100 WBC (Bld) 0.300 % 0.0-0.9 [facility] Comment on above: IG% - Immature Granu locytes (promyelocytes, myelocytes and metamyelocytes) > 1% indicates that a LEFT SHIFT is Present. MCV (mean corpuscular volume ) determinationOrdered By: Sheyla Mcgee on 10-05-2024 MCV (RBC) [Entitic vol] 97.7 fL 81-99 [facility] Mean corpuscular hemoglobin (MCH) determinationOrdered By: Sheyla Gejuan mabdirahman on 10-05-2024 MCH (RBC) [Entitic mass] 32.0 pg 27.0-32.0 [facility] Mean corpuscular hemoglobin concentration (MCHC) determinationOrdered By: Sheyla Mcgee on 10-05-2024 MCHC (RBC) [Mass/Vol] 32.8 g/dL 32-36 [facility] Mean platelet volume determi nationOrdered By: Sheyla Mcgee on 10-05-2024 Platelet mean volume (Bld) [Entitic vol] 12.8 fL High 6.2-12.0 [facility] Monocyte percentageOrdered B y: Sheyla Mcgee on 10-05-2024 Monocytes/100 WBC (Bld) 7.8 % 0-10 [facility] Neutrophil percentageOrdered By: [facility] on 10-05-2024 Neutrophils/100 WBC (Bld) 58.1 % 47-70 [facility] Nucleated red blood cell per centageOrdered By: Jonathancereskateryna Mcgee on 10-05-2024 Nucleated RBC/100 WBC (Bld) [Ratio] 0 % 0-5 [facility] Platelet countOrdered By: Francisco aaroncarl Mcgee on 10-05-2024 Platelets (Bld) [#/Vol] 277 10*3/uL 150-450 [facility] Potassium measurement (mass/ volume)Ordered By: Sheyla Mcgee on 10-05-2024 Potassium (Unsp spec) [Mass/Vol] 3.5 mmol/L 3.3-5.1 [facility] RBC Auto (Bld) [#/Vol]Ordere d By: Sheyla Mcgee on 10-05-2024 RBC (Bld) [#/Vol] 3.87 10*6/uL Low 4.2-5.4 [facility] Serum creatinine measurement (mass/volume)Ordered By: Sheyla Mcgee on 10-05-2024 Creatinine [Mass/Vol] 0.63 mg/dL Low 0.70-1.20 [facility] Serum glucose measurement (m ass/volume)Ordered By: Sheyla Mcgee on 10-05-2024 Glucose [Mass/Vol] 90 mg/dL 70-99 [facility] Serum or plasma calcium rajni urement (mass/volume)Ordered By: Sheyla Mcgee on 10-05-2024 Calcium [Mass/Vol] 8.4 mg/dL 7.6-11.0 [facility] Serum or plasma urea nitroge n measurement (mass/volume)Ordered By: Sheyla Mcgee on 10-05-2024 Urea nitrogen [Mass/Vol] 15 mg/dL 4-19 [facility] Sodium levelOrdered By: Jonathan goyalaminataabdirahman Mcgee on 10-05-2024 Sodium [Moles/Vol] 143 mmol/L 133-145 [facility] White blood cell (WBC) count Ordered By: Sheyla Mcgee on 10-05-2024 WBC (Bld) [#/Vol] 9.2 10*3/uL 4.4-11.0 [facility] Absolute lymphocyte countOrd ered By: Sheyla Mcgee on 09-28-2024 Lymphocytes Auto (Unsp spec) [#/Vol] 2.11 10*3/uL 0.83-4.51 [facility] Absolute neutrophil countOrd ered By: Sheyla Mcgee on 09-28-2024 Neutrophils (Bld) [#/Vol] 7.3 10*3/uL 2.0-7.7 [facility] Anion gap in Serum or Plasma Ordered By: Sheyla Mcgee on 09-28-2024 Anion gap [Moles/Vol] 13 mmol/L 5-15 [facility] Automated lymphocyte count a s percentage of total leukocytesOrdered By: Sheyla Mcgee on 09-28-2024 Lymphocytes/100 WBC Auto (Unsp spec) 19.1 % 19-41 [facility] BUN/creatinine ratioOrdered By: Sheyla Mcgee on 09-28-2024 Urea nitrogen/Creatinine [Mass ratio] 16.3 mg/mg 10-20 [facility] Basophil percentageOrdered B y: Sheyla Joopoli on 09-28-2024 Basophils/100 WBC (Bld) 0.7 % 0-1 [facility] Bilirubin, totalOrdered By: dorian Gejuan mabdirahman on 09-28-2024 Bilirubin [Mass/Vol] 0.44 mg/dL 0.00-1.30 [facility] Carbon dioxide, total [Moles /volume] in Central venous bloodOrdered By: aaroncereskateryna Mcgee on 09-28-2024 CO2 [Moles/Vol] 25.5 mmol/L 21.0-32.0 [facility] Chloride assayOrdered By: Francisco yogikateryna Mcgee on 09-28-2024 Chloride [Moles/Vol] 104 mmol/L 98-108 [facility] Eosinophil percentageOrdered By: aaroncereskateryna Gejuan mabdirahman on 09-28-2024 Eosinophils/100 WBC (Bld) 5.4 % High 0-5 [facility] Erythrocyte distribution wid th ratioOrdered By: [facility] Arely on 09-28-2024 Erythrocyte distribution width (RBC) [Ratio] 13.2 % 11.6-14.6 [facility] Erythrocyte distribution wid th standard deviationOrdered By: aaroncereskateryna Gejuan mabdirahman on 09-28-2024 Erythrocyte distribution width (RBC) [Ratio] 47.7 fl High 35.1-43.9 [facility] Glomerular filtration rate ( GFR) estimation/1.73 sq m using serum, plasma, or whole bOrdered By: Sheyla Mcgee on 09-28-2024 GFR/1.73 sq M.predicted among non-blacks MDRD (S/P/Bld) [Vol rate/Area] 91 mL/min/{1.73_m2} >60 [facility] Comment on above: mL/min/1.73m2 CKD-EP I Creatinine Equation (2020) Hematocrit Auto (Bld) [Volum e fraction]Ordered By: Jonathancereskateryna Mcgee on 09-28-2024 Hematocrit (Bld) [Volume fraction] 39.9 % 37-47 [facility] Hemoglobin measurementOrdere d By: Sheyla Mcgee on 09-28-2024 Hemoglobin (Bld) [Mass/Vol] 13.3 g/dL 12.0-15.0 [facility] Immature granulocytes/100 WB C Auto (Bld)Ordered By: Sheyla Mcgee on 09-28-2024 Immature granulocytes/100 WBC (Bld) 0.400 % 0.0-0.9 [facility] Comment on above: IG% - Immature Granu locytes (promyelocytes, myelocytes and metamyelocytes) > 1% indicates that a LEFT SHIFT is Present. Laboratory - Chemistry and C hemistry - challengeOrdered By: Sheyla Mcgee on 09-28-2024 AST [Catalytic activity/Vol] 28 U/L <32 [facility] MCV (mean corpuscular volume ) determinationOrdered By: Sheyla Mcgee on 09-28-2024 MCV (RBC) [Entitic vol] 97.3 fL 81-99 [facility] Magnesium measurement (mass/ volume)Ordered By: Sheyla Mcgee on 09-28-2024 Magnesium (Unsp spec) [Mass/Vol] 2.2 mg/dL 1.5-2.2 [facility] Mean corpuscular hemoglobin (MCH) determinationOrdered By: Sheyla Mcgee on 09-28-2024 MCH (RBC) [Entitic mass] 32.4 pg High 27.0-32.0 [facility] Mean corpuscular hemoglobin concentration (MCHC) determinationOrdered By: Sheyla Mcgee on 09-28-2024 MCHC (RBC) [Mass/Vol] 33.3 g/dL 32-36 [facility] Mean platelet volume determi nationOrdered By: Sheyla Mcgee on 09-28-2024 Platelet mean volume (Bld) [Entitic vol] 12.1 fL High 6.2-12.0 [facility] Monocyte percentageOrdered B y: Sheyla Mcgee on 09-28-2024 Monocytes/100 WBC (Bld) 8.3 % 0-10 [facility] Neutrophil percentageOrdered By: Sheyla Mcgee on 09-28-2024 Neutrophils/100 WBC (Bld) 66.1 % 47-70 [facility] Nucleated red blood cell per centageOrdered By: Sheyla Mcgee on 09-28-2024 Nucleated RBC/100 WBC (Bld) [Ratio] 0 % 0-5 [facility] Platelet countOrdered By: Francisco Mcgee on 09-28-2024 Platelets (Bld) [#/Vol] 230 10*3/uL 150-450 [facility] Potassium measurement (mass/ volume)Ordered By: Sheyla Mcgee on 09-28-2024 Potassium (Unsp spec) [Mass/Vol] 3.4 mmol/L 3.3-5.1 [facility] RBC Auto (Bld) [#/Vol]Ordere d By: Sheyla Mcgee on 09-28-2024 RBC (Bld) [#/Vol] 4.10 10*6/uL Low 4.2-5.4 [facility] Serum creatinine measurement (mass/volume)Ordered By: Sheyla Mcgee on 09-28-2024 Creatinine [Mass/Vol] 0.63 mg/dL Low 0.70-1.20 [facility] Serum globulin measurementOr dered By: Sheyla Mcgee on 09-28-2024 Globulin (S) [Mass/Vol] 2.9 g/dL 2.2-4.2 [facility] Serum glucose measurement (m ass/volume)Ordered By: Sheyla Mcgee on 09-28-2024 Glucose [Mass/Vol] 85 mg/dL 70-99 [facility] Serum or plasma alanine kaur otransferase (ALT) measurementOrdered By: Sheyla Mcgee on 09-28-2024 ALT [Catalytic activity/Vol] 23 U/L <35 [facility] Serum or plasma albumin rajni urement (mass/volume)Ordered By: Sheyla Mcgee on 09-28-2024 Albumin [Mass/Vol] 3.8 g/dL 3.4-4.8 [facility] Serum or plasma albumin/glob ulin mass ratioOrdered By: Sheyla Mcgee on 09-28-2024 Albumin/Globulin [Mass ratio] 1.3 {ratio} 0.9-2.4 [facility] Serum or plasma alkaline dedra sphatase measurementOrdered By: Francicsoaaronestivenkateryna Gejuan mabdirahman on 09-28-2024 ALP [Catalytic activity/Vol] 86 U/L 35-104 [facility] Serum or plasma calcium rajni urement (mass/volume)Ordered By: Sheyla Joojuan mabdirahman on 09-28-2024 Calcium [Mass/Vol] 8.7 mg/dL 7.6-11.0 [facility] Serum or plasma triiodothyro nine (T3) measurement (mass/volume)Ordered By: [facility] Joojuan mabdirahman on 09-28-2024 T3 [Mass/Vol] 0.82 ng/mL 0.80-2.00 [facility] Serum or plasma urea nitroge n measurement (mass/volume)Ordered By: Franciscoaaronestivenkateryna Gejuan mabdirahman on 09-28-2024 Urea nitrogen [Mass/Vol] 10 mg/dL 4-19 [facility] Sodium levelOrdered By: Jonathan henry Joojuan mabdirahman on 09-28-2024 Sodium [Moles/Vol] 143 mmol/L 133-145 [facility] TSH DL <= 0.005 mIU/L QnOrde red By: Sheyla Joopoli on 09-28-2024 TSH Qn 0.522 uIU/mL 0.300-4.200 [facility] Total proteinOrdered By: Jose isbell Joojuan mabdirahman on 09-28-2024 Protein [Mass/Vol] 6.8 g/dL 5.9-8.4 [facility] White blood cell (WBC) count Ordered By: Franciscoaaronestivenkateryna Gejuan mabdirahman on 09-28-2024 WBC (Bld) [#/Vol] 11.0 10*3/uL 4.4-11.0 [facility] Clavicleon 09-26-2024 Clavicle [facility] Imaging Services [address] [place] [address] Clavicle MR#: [id number] Acct: [id number] Name: AIDEN FIELDS Rep #: [id number] : 1945 F 78 From: Sim Gordon DO PCP: Dr. Sheyla Mcgee MD Status: REG ER Study: Clavicle Date of Exam: 09/26/24 Exam# [id number] Ordering Dr: Franky Olivas DO PROCEDURE: CLAVICLE 09/26/2024 REASON FOR EXAM: FALL Initial encounter TECHNIQUE: 2 view(s) of the left clavicle COMPARISON: No prior left clavicle radiographs. FINDINGS: LEFT CLAVICLE: Fracture in the distal 3rd of the clavicle with the parent 8 mm inferior displacement of the distal fracture fragment, been a apposition RAD/Clavicle IMPRESSION: Distal left clavicle fracture [facility] CC: Dr. Sheyla Mcgee MD; Dr. 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 [facility] Medical History Anxiety and depression Hypoparathyroidism [...] Neosporin Allergy Unknown Unknown Verified 09/22/24 20:06 ([id number])) neomycin (From Neosporin Allergy Unknown Unknown Verified 09/22/24 20:06 ([id number])) polymyxin B (From Neosporin Allergy Unknown Unknown Verified 09/22/24 20:06 ([id number])) Antihistamines - Alkylamine Allergy PT UNSURE Verified [...] Respiratory: D (more content not included)... Normal [facility] Shoulder min 2 Viewson 09-26 Shoulder min 2 Views [facility] Imaging Services [address] [place], [place] [address] Shoulder min 2 Views MR#: [id number] Acct: [id number] Name: AIDEN FIELDS Rep #: [id number] : 1945 F 78 From: Sim Gordon DO PCP: Dr. Sheyla Mcgee MD Status: REG ER Study: Shoulder min 2 Views Date of Exam: 09/26/24 Exam# [id number] Ordering Dr: Franky Olivas DO PROCEDURE: SHOULDER [...] distal 3rd of the clavicle. [facility] CC: Dr. Sheyla Mcgee MD; Dr. Farnky Olivas DO Radio Mechanic Helper: Signed Normal [facility] Urine Cultureon 09-26-2024 [facility]RC Urine Culture Citrobacter species Meade Count >100,000 Citrobacter species: REACTION Cefepime Islt [...] S Tobramycin Islt BENJAMIN <=1 S Normal [facility] Comment on above: Performed By: #### L 500.4050, L100.0100, L501.3620 #### [facility] [address] [place], [place], [id number] Absolute lymphocyte countOrd ered By: Aggie Bolton on 09-23-2024 Lymphocytes Auto (Unsp spec) [#/Vol] 1.66 10*3/uL 0.83-4.51 [facility] Absolute neutrophil countOrd ered By: Aggie Bolton on 09-23-2024 Neutrophils (Bld) [#/Vol] 7.2 10*3/uL 2.0-7.7 [facility] Anion gap in Serum or Plasma Ordered By: Aggie Bolton on 09-23-2024 Anion gap [Moles/Vol] 10 mmol/L 5-15 [facility] Automated blood erythrocyte countOrdered By: Aggie Bolton on 09-23-2024 RBC (Bld) [#/Vol] 3.68 10*6/uL Low 4.2-5.4 [facility] Comment on above: Performed By: #### L 500.4050, L100.0100, L501.3620 #### [facility] [address] [place], [address] Automated blood hematocrit ( percentage)Ordered By: Aggie Che on 09-23-2024 Hematocrit (Bld) [Volume fraction] 35.9 % Low 37-47 [facility] Comment on above: Performed By: #### L 500.4050, L100.0100, L501.3620 #### [facility] [address] [place], [address] Automated lymphocyte count a s percentage of total leukocytesOrdered By: Aggie Bolton on 09-23-2024 Lymphocytes/100 WBC Auto (Unsp spec) 16.2 % Low 19-41 [facility] BUN/creatinine ratioOrdered By: [facility] Che on 09-23-2024 Urea nitrogen/Creatinine [Mass ratio] 18.3 mg/mg 10-20 [facility] Basophil percentageOrdered B y: Aggie Bolton on 09-23-2024 Basophils/100 WBC (Bld) 0.8 % Normal 0-1 [facility] Comment on above: Performed By: #### L 500.4050, L100.0100, L501.3620 #### [facility] [address] [place], [address] Bilirubin, totalOrdered By: Aggie Bolton on 09-23-2024 Bilirubin [Mass/Vol] 0.17 mg/dL Normal 0.00-1.30 [facility] Comment on above: Performed By: #### L 500.4050, L100.0100, L501.3620 #### [facility] [address] [place], [address] CBC W/Diff, Automatedon 06-0 Absolute Lymph 1.66 X10 3/uL Normal 0.83-4.51 [facility] Comment on above: Performed By: #### L 500.4050, L100.0100, L501.3620 #### [facility] [address] [place], [address] Absolute Neut 7.2 X10 3/uL Normal 2.0-7.7 [facility] Comment on above: Performed By: #### L 500.4050, L100.0100, L501.3620 #### [facility] [address] [place], [address] IG% 0.400 Normal 0.0-0.9 [facility] Comment on above: Result Comment: IG% - Immature Granulocytes (promyelocytes, myelocytes and metamyelocytes) > 1% indicates that a LEFT SHIFT is Present. Performed By: #### L 500.4050, L100.0100, L501.3620 #### [facility] [address] [place], [address] Lymphocytes/100 WBC (Bld) 16.2 % Low 19-41 [facility] Comment on above: Performed By: #### L 500.4050, L100.0100, L501.3620 #### [facility] [address] [place], [address] Nucleated RBC (Bld) [#/Vol] 0 10*3/uL Normal 0-5 [facility] Comment on above: Performed By: #### L 500.4050, L100.0100, L501.3620 #### [facility] [address] [place], [address] RDW SD 47.4 fl High 35.1-43.9 [facility] Comment on above: Performed By: #### L 500.4050, L100.0100, L501.3620 #### [facility] [address] [place], [address] CPK Total, Creatine Kinaseon 09-23-2024 CPK TOTAL 271 U/L High 24-195 [facility] Comment on above: Performed By: #### L 500.4050, L100.0100, L501.3620 #### [facility] [address] [place] [place], [address] Carbon dioxide, total [Moles /volume] in Central venous bloodOrdered By: Aggie Bolton on 09-23-2024 CO2 [Moles/Vol] 24.4 mmol/L Normal 21.0-32.0 [facility] Comment on above: Performed By: #### L 500.4050, L100.0100, L501.3620 #### [facility] [address] [place], [address] Chloride assayOrdered By: Lesly Bolton on 09-23-2024 Chloride [Moles/Vol] 105 mmol/L Normal 98-108 [facility] Comment on above: Performed By: #### L 500.4050, L100.0100, L501.3620 #### [facility] [address] [place], [address] Comprehensive Metabolic Prof ilon 09-23-2024 ALK PHOS 80 U/L Normal 35-104 [facility] Comment on above: Performed By: #### L 500.4050, L100.0100, L501.3620 #### [facility] [address] [place], [address] BUN/CRE 18.3 RATIO Normal 10-20 [facility] Comment on above: Performed By: #### L 500.4050, L100.0100, L501.3620 #### [facility] [address] [place], [address] ECRCL 59.41 ml/min Normal 50-250 [facility] Comment on above: Performed By: #### L 500.4050, L100.0100, L501.3620 #### [facility] [address] [place], [address] GAP 10 Normal 5-15 [facility] Comment on above: Performed By: #### L 500.4050, L100.0100, L501.3620 #### [facility] [address] [place], [address] Potassium [Moles/Vol] 4.1 mmol/L Normal 3.3-5.1 [facility] Comment on above: Performed By: #### L 500.4050, L100.0100, L501.3620 #### [facility] [address] [place], [address] T PROT 6.2 g/dL Normal 5.9-8.4 [facility] Comment on above: Performed By: #### L 500.4050, L100.0100, L501.3620 #### [facility] [address] [place], [address] Comprehensive Metabolic Prof ilOrdered By: Aggie Bolton on 09-23-2024 AST [Catalytic activity/Vol] 24 U/L Normal <=31 [facility] Comment on above: Performed By: #### L 500.4050, L100.0100, L501.3620 #### [facility] [address] [place], [address] Eosinophil percentageOrdered By: Aggie Bolton on 09-23-2024 Eosinophils/100 WBC (Bld) 2.4 % Normal 0-5 [facility] Comment on above: Performed By: #### L 500.4050, L100.0100, L501.3620 #### [facility] [address] [place], [address] Erythrocyte distribution wid th ratioOrdered By: Aggie Bolton on 09-23-2024 Erythrocyte distribution width (RBC) [Ratio] 13.2 % Normal 11.6-14.6 [facility] Comment on above: Performed By: #### L 500.4050, L100.0100, L501.3620 #### [facility] [address] [place], [place], [id number] Erythrocyte distribution wid th standard deviationOrdered By: Aggie Bolton on 09-23-2024 Erythrocyte distribution width (RBC) [Ratio] 47.4 fl High 35.1-43.9 [facility] Glomerular filtration rate ( GFR) estimation/1.73 sq m using serum, plasma, or whole bOrdered By: Aggie Bolton on 09-23-2024 GFR/1.73 sq M.predicted among non-blacks MDRD (S/P/Bld) [Vol rate/Area] 87 mL/min/{1.73_m2} Normal >60 [facility] Comment on above: mL/min/1.73m2 CKD-EP I Creatinine Equation (2020) Result Comment: mL/m in/1.73m2 CKD-EPI Creatinine Equation (2020) Performed By: #### L 500.4050, L100.0100, L501.3620 #### [facility] [address] [place], [place], [id number] Hemoglobin measurementOrdere d By: Aggie Bolton on 09-23-2024 Hemoglobin (Bld) [Mass/Vol] 12.0 g/dL Normal 12.0-15.0 [facility] Comment on above: Performed By: #### L 500.4050, L100.0100, L501.3620 #### [facility] [address] [facility] [place], [address] Immature granulocytes/100 WB C Auto (Bld)Ordered By: Aggie Bolton on 09-23-2024 Immature granulocytes/100 WBC (Bld) 0.400 % 0.0-0.9 [facility] Comment on above: IG% - Immature Granu locytes (promyelocytes, myelocytes and metamyelocytes) > 1% indicates that a LEFT SHIFT is Present. MCV (mean corpuscular volume ) determinationOrdered By: Aggie Bolton on 09-23-2024 MCV (RBC) [Entitic vol] 97.6 fL Normal 81-99 [facility] Comment on above: Performed By: #### L 500.4050, L100.0100, L501.3620 #### [facility] [address] [place], [address] Mean corpuscular hemoglobin (MCH) determinationOrdered By: Aggie Bolton on 09-23-2024 MCH (RBC) [Entitic mass] 32.6 pg High 27.0-32.0 [facility] Comment on above: Performed By: #### L 500.4050, L100.0100, L501.3620 #### [facility] [address] [place], [address] Mean corpuscular hemoglobin concentration (MCHC) determinationOrdered By: Aggie Bolton on 09-23-2024 MCHC (RBC) [Mass/Vol] 33.4 g/dL Normal 32-36 [facility] Comment on above: Performed By: #### L 500.4050, L100.0100, L501.3620 #### [facility] [address] [place], [address] Mean platelet volume determi nationOrdered By: Aggie Bolton on 09-23-2024 Platelet mean volume (Bld) [Entitic vol] 11.7 fL Normal 6.2-12.0 [facility] Comment on above: Performed By: #### L 500.4050, L100.0100, L501.3620 #### [facility] [address] [place], [address] Monocyte percentageOrdered B y: Aggie Che on 09-23-2024 Monocytes/100 WBC (Bld) 9.6 % Normal 0-10 [facility] Comment on above: Performed By: #### L 500.4050, L100.0100, L501.3620 #### [facility] [address] [place], [address] Neutrophil percentageOrdered By: Aggie Bolton on 09-23-2024 Neutrophils/100 WBC (Bld) 70.6 % High 47-70 [facility] Comment on above: Performed By: #### L 500.4050, L100.0100, L501.3620 #### [facility] [address] [place], [address] Nucleated red blood cell per centageOrdered By: Aggie Bolton on 09-23-2024 Nucleated RBC/100 WBC (Bld) [Ratio] 0 % 0-5 [facility] Platelet countOrdered By: Lesly martingabriela Bolton on 09-23-2024 Platelets (Bld) [#/Vol] 241 10*3/uL Normal 150-450 [facility] Comment on above: Performed By: #### L 500.4050, L100.0100, L501.3620 #### [facility] [address] [place], [address] Potassium measurement (mass/ volume)Ordered By: Aggie Bolton on 09-23-2024 Potassium (Unsp spec) [Mass/Vol] 4.1 mmol/L 3.3-5.1 [facility] Serum creatinine measurement (mass/volume)Ordered By: Aggie Bolton on 09-23-2024 Creatinine [Mass/Vol] 0.71 mg/dL Normal 0.70-1.20 [facility] Comment on above: Performed By: #### L 500.4050, L100.0100, L501.3620 #### [facility] [address] [place], [address] Serum globulin measurementOr dered By: Aggie Bolton on 09-23-2024 Globulin (S) [Mass/Vol] 2.8 g/dL Normal 2.2-4.2 [facility] Comment on above: Performed By: #### L 500.4050, L100.0100, L501.3620 #### [facility] [address] [place], [address] Serum glucose measurement (m ass/volume)Ordered By: Aggie Bolton on 09-23-2024 Glucose [Mass/Vol] 162 mg/dL High 70-99 [facility] Comment on above: Performed By: #### L 500.4050, L100.0100, L501.3620 #### [facility] [address] [place], [address] Serum or plasma alanine kaur otransferase (ALT) measurementOrdered By: Aggie Bolton on 09-23-2024 ALT [Catalytic activity/Vol] 13 U/L Normal <=34 [facility] Comment on above: Performed By: #### L 500.4050, L100.0100, L501.3620 #### [facility] [address] [place], [address] Serum or plasma albumin rajin urement (mass/volume)Ordered By: Aggie Bolton on 09-23-2024 Albumin [Mass/Vol] 3.4 g/dL Normal 3.4-4.8 [facility] Comment on above: Performed By: #### L 500.4050, L100.0100, L501.3620 #### [facility] [address] [place], [address] Serum or plasma albumin/glob ulin mass ratioOrdered By: Aggie Bolton on 09-23-2024 Albumin/Globulin [Mass ratio] 1.2 {ratio} Normal 0.9-2.4 [facility] Comment on above: Performed By: #### L 500.4050, L100.0100, L501.3620 #### [facility] [address] [place], [address] Serum or plasma alkaline dedra sphatase measurementOrdered By: Aggie Bolton on 09-23-2024 ALP [Catalytic activity/Vol] 80 U/L 35-104 [facility] Serum or plasma calcium rajni urement (mass/volume)Ordered By: Aggie Bolton on 09-23-2024 Calcium [Mass/Vol] 8.0 mg/dL Normal 7.6-11.0 [facility] Comment on above: Performed By: #### L 500.4050, L100.0100, L501.3620 #### [facility] [address] [place], [address] Serum or plasma creatine kin ase activityOrdered By: Aggie Bolton on 09-23-2024 CK [Catalytic activity/Vol] 271 U/L High 24-195 [facility] Serum or plasma urea nitroge n measurement (mass/volume)Ordered By: Aggie Bolton on 09-23-2024 Urea nitrogen [Mass/Vol] 13 mg/dL Normal 4-19 [facility] Comment on above: Performed By: #### L 500.4050, L100.0100, L501.3620 #### [facility] [address] [place], [address] Sodium levelOrdered By: Varun Bolton on 09-23-2024 Sodium [Moles/Vol] 140 mmol/L Normal 133-145 [facility] Comment on above: Performed By: #### L 500.4050, L100.0100, L501.3620 #### [facility] [address] [place], [address] Total proteinOrdered By: Martita Bolton on 09-23-2024 Protein [Mass/Vol] 6.2 g/dL 5.9-8.4 [facility] White blood cell (WBC) count Ordered By: Aggie Bolton on 09-23-2024 WBC (Bld) [#/Vol] 10.3 10*3/uL Normal 4.4-11.0 [facility] Comment on above: Performed By: #### L 500.4050, L100.0100, L501.3620 #### [facility] [address] [place], [address] 12 Lead EKGon 09-22-2024 12 Lead EKG [facility] Cardiovascular Services [address] [place] [address] 12 Lead EKG 09/22/242044 MR#: [id number] Acct: [id number] Name: AIDEN FIELDS Rep #: [id number] : 1945 78 From: Geovanna Gray MD Attending Dr: Dr. Froy Velázquez DO Status: DIS IN Ordering Dr: Alexis Quijano MD Date: 09/22/24 Location: [facility] Sex: F C Admitted: 09/22/24 Test Reason : WEAKNESS Blood Pressure : */* mmHG Vent. Rate : 63 BPM Atrial Rate : 63 BPM P-R Int : 148 ms QRS Dur : 70 ms QT Int : 402 ms P-R-T Axes : 43 7 24 degrees QTcB Int : 411 ms Normal sinus rhythm Normal ECG Confirmed by ISAIAH CRAMER, HILL ([id number]), purchasing expeditor ONESIMO GRACE ([id number]) on 09/28/2024 7:09:28 AM Referred By: Confirmed By: HILL GRAY MD 09/28/24 0709 Date Geovanna Gray MD CC: Dr. Alexis Quijano MD; Dr. Froy Velázquez DO; Dr. Erica Richardson DO Signed Normal [facility] Absolute lymphocyte countOrd ered By: Alexis Quijano on 09-22-2024 Lymphocytes Auto (Unsp spec) [#/Vol] 2.17 10*3/uL 0.83-4.51 [facility] Absolute neutrophil countOrd ered By: Alexis Quijano on 09-22-2024 Neutrophils (Bld) [#/Vol] 8.0 10*3/uL High 2.0-7.7 [facility] Anion gap in Serum or Plasma Ordered By: Alexis Quijano on 09-22-2024 Anion gap [Moles/Vol] 11 mmol/L 5-15 [facility] Automated lymphocyte count a s percentage of total leukocytesOrdered By: Alexis Quijano on 09-22-2024 Lymphocytes/100 WBC Auto (Unsp spec) 18.8 % Low 19-41 [facility] BUN/creatinine ratioOrdered By: Alexis Quijano on 09-22-2024 Urea nitrogen/Creatinine [Mass ratio] 15.0 mg/mg 10-20 [facility] Basophil percentageOrdered B y: Alexis Quijano on 09-22-2024 Basophils/100 WBC (Bld) 0.9 % 0-1 [facility] Bilirubin Test strip Ql (U)O rdered By: Alexis Quijano on 09-22-2024 Bilirubin Ql (U) Negative Negative [facility] Bilirubin, totalOrdered By: Alexis Quijano on 09-22-2024 Bilirubin [Mass/Vol] 0.31 mg/dL 0.00-1.30 [facility] Brain/Head without Contrasto n 09-22-2024 Brain/Head without Contrast [facility] Imaging Services [address] [place], [place] [address] Brain/Head without Contrast MR#: [id number] Acct: [id number] Name: AIDEN FIELDS Rep #: [id number] : 1945 F 78 From: Warren Mullen MD PCP: Dr. Erica Richardson, DO Status: REG ER Study: Brain/Head without Contrast Date of Exam: 07/14 Exam# [id number] Ordering Dr: Alexis Quijano MD PROCEDURE: BRAIN/HEAD [...] mGy DLP: 897.35 mGycm COMPARISON: 08/20/2023. FINDINGS: [id number] global parenchymal atrophy. Periventricular white matter hypodensity likely representing chronic microvascular ischemia. No evidence of acute hemorrhage or infarction. No extra-axial blood or fluid collections. The paranasal sinuses are clear. The mastoid air cells are well aerated. The calvarial vault and skull base are intact. CT/Brain/Head without Contrast IMPRESSION: No acute intracranial abnormality. Reading Location: [id number] CC: Dr. Alexis Quijano MD; Dr. Erica Richardson DO Radio Mechanic Helper: Signed Normal [facility] CBC W/Diff, Automatedon 06-0 Absolute Lymph 2.17 X10 3/uL Normal 0.83-4.51 [facility] Comment on above: Performed By: #### M 100.2200 #### [facility] [address] [place], [address] Absolute Neut 8.0 X10 3/uL High 2.0-7.7 [facility] Comment on above: Performed By: #### M 100.2200 #### [facility] [address] [place], [address] Basophils/100 WBC (Bld) 0.9 % Normal 0-1 [facility] Comment on above: Performed By: #### M 100.2200 #### [facility] [address] [place], [address] Eosinophils/100 WBC (Bld) 2.9 % Normal 0-5 [facility] Comment on above: Performed By: #### M 100.2200 #### [facility] [address] [place], [address] Erythrocyte distribution width (RBC) [Ratio] 13.1 % Normal 11.6-14.6 [facility] Comment on above: Performed By: #### M 100.2200 #### [facility] [address] [place], [address] Hematocrit (Bld) [Volume fraction] 39.5 % Normal 37-47 [facility] Comment on above: Performed By: #### M 100.2200 #### [facility] [address] [place], [address] Hemoglobin (Bld) [Mass/Vol] 13.2 g/dL Normal 12.0-15.0 [facility] Comment on above: Performed By: #### M 100.2200 #### [facility] [address] [place], [address] IG% 0.400 Normal 0.0-0.9 [facility] Comment on above: Result Comment: IG% - Immature Granulocytes (promyelocytes, myelocytes and metamyelocytes) > 1% indicates that a LEFT SHIFT is Present. Performed By: #### M 100.2200 #### [facility] [address] [place], [address] Lymphocytes/100 WBC (Bld) 18.8 % Low 19-41 [facility] Comment on above: Performed By: #### M 100.2200 #### [facility] [address] [place], [address] MCH (RBC) [Entitic mass] 32.7 pg High 27.0-32.0 [facility] Comment on above: Performed By: #### M 100.2200 #### [facility] [address] [place], [address] MCHC (RBC) [Mass/Vol] 33.4 g/dL Normal 32-36 [facility] Comment on above: Performed By: #### M 100.2200 #### [facility] [address] [place], [address] MCV (RBC) [Entitic vol] 97.8 fL Normal 81-99 [facility] Comment on above: Performed By: #### M 100.2200 #### [facility] [address] [place], [address] Monocytes/100 WBC (Bld) 7.5 % Normal 0-10 [facility] Comment on above: Performed By: #### M 100.2200 #### [facility] [address] [place], [address] Neutrophils/100 WBC (Bld) 69.5 % Normal 47-70 [facility] Comment on above: Performed By: #### M 100.2200 #### [facility] [address] [place], [address] Nucleated RBC (Bld) [#/Vol] 0 10*3/uL Normal 0-5 [facility] Comment on above: Performed By: #### M 100.2200 #### [facility] [address] [place], [address] Platelet mean volume (Bld) [Entitic vol] 12.0 fL Normal 6.2-12.0 [facility] Comment on above: Performed By: #### M 100.2200 #### [facility] [address] [place], [address] Platelets (Bld) [#/Vol] 259 10*3/uL Normal 150-450 [facility] Comment on above: Performed By: #### M 100.2200 #### [facility] [address] [place], [address] RBC (Bld) [#/Vol] 4.04 10*6/uL Low 4.2-5.4 [facility] Comment on above: Performed By: #### M 100.2200 #### [facility] [address] [place], [address] RDW SD 47.2 fl High 35.1-43.9 [facility] Comment on above: Performed By: #### M 100.2200 #### [facility] [address] [place], [address] WBC (Bld) [#/Vol] 11.6 10*3/uL High 4.4-11.0 [facility] Comment on above: Performed By: #### M 100.2200 #### [facility] [address] [place], [address] CPK Total, Creatine Kinaseon 09-22-2024 CPK TOTAL 316 U/L High 24-195 [facility] Comment on above: Performed By: #### L 501.3620 #### [facility] [address] [place], [place], [address] Carbon dioxide, total [Moles /volume] in Central venous bloodOrdered By: Alexis Quijano on 09-22-2024 CO2 [Moles/Vol] 25.5 mmol/L 21.0-32.0 [facility] Chest 1 View (Portable)on Chest 1 View (Portable) [facility] Imaging Services [address] [place], [place] [address] Chest 1 View (Portable) MR#: [id number] Acct: [id number] Name: AIDEN FIELDS Rep #: [id number] : 1945 F 78 From: Warren Mullen MD PCP: Dr. Erica Richardson DO Status: REG ER Study: Chest 1 View (Portable) Date of Exam: 09/22/24 Exam# [id number] Ordering Dr: Alexis Quijano MD PROCEDURE: CHEST 1 VIEW (PORTABLE) 09/22/2024 REASON FOR EXAM: SHORTNESS OF BREATH TECHNIQUE: Frontal view of the chest. COMPARISON: 07/04/2024. FINDINGS: The heart is normal in size. Right chest Port-A-Cath. The lungs are clear. Right humeral plate and screw fixation. Left rib plate and screw fixation. RAD/Chest 1 View (Portable) IMPRESSION: No acute cardiopulmonary abnormalities. Reading Location: [place] [address] CC: Dr. Alexis Quijano MD; Dr. Erica Richardson DO Radio Mechanic Helper: Signed Normal [facility] Chloride assayOrdered By: Hermann Quijano on 09-22-2024 Chloride [Moles/Vol] 100 mmol/L 98-108 [facility] Comprehensive Metabolic Prof ilon 09-22-2024 Albumin [Mass/Vol] 3.6 g/dL Normal 3.4-4.8 [facility] Comment on above: Performed By: #### M 100.2200 #### [facility] [address] [place], [address] Albumin/Globulin [Mass ratio] 1.2 {ratio} Normal 0.9-2.4 [facility] Comment on above: Performed By: #### M 100.2200 #### [facility] [address] [place], [address] ALK PHOS 87 U/L Normal 35-104 [facility] Comment on above: Performed By: #### M 100.2200 #### [facility] [address] [place], [address] ALT [Catalytic activity/Vol] 16 U/L Normal <=34 [facility] Comment on above: Result Comment: Hemo lysis present, Results??could be affected. ?? Performed By: #### M 100.0 #### [facility] [address] [place], [address] AST [Catalytic activity/Vol] 40 U/L High <=31 [facility] Comment on above: Result Comment: Hemo lysis present, Results??could be affected. ?? Performed By: #### M 100.2200 #### [facility] [address] [place], [address] Bilirubin [Mass/Vol] 0.31 mg/dL Normal 0.00-1.30 [facility] Comment on above: Performed By: #### M 100.2200 #### [facility] [address] [place], [address] BUN/CRE 15.0 RATIO Normal 10-20 [facility] Comment on above: Performed By: #### M 100.2200 #### [facility] [address] [place], [address] Calcium [Mass/Vol] 8.6 mg/dL Normal 7.6-11.0 [facility] Comment on above: Performed By: #### M 100.2200 #### [facility] [address] [place], [address] Chloride [Moles/Vol] 100 mmol/L Normal 98-108 [facility] Comment on above: Performed By: #### M 100.2200 #### [facility] [address] [place], [address] CO2 [Moles/Vol] 25.5 mmol/L Normal 21.0-32.0 [facility] Comment on above: Performed By: #### M 100.2200 #### [facility] [address] [place], [address] Creatinine [Mass/Vol] 0.86 mg/dL Normal 0.70-1.20 [facility] Comment on above: Performed By: #### M 100.2200 #### [facility] [address] [place], [address] ECRCL 58.83 ml/min Normal 50-250 [facility] Comment on above: Performed By: #### M 100.2200 #### [facility] [address] [place], [address] GAP 11 Normal 5-15 [facility] Comment on above: Performed By: #### M 100.2200 #### [facility] [address] [place], [address] GFR/1.73 sq M.predicted among non-blacks MDRD (S/P/Bld) [Vol rate/Area] 70 mL/min/{1.73_m2} Normal >60 [facility] Comment on above: Result Comment: mL/m in/1.73m2 CKD-EPI Creatinine Equation (2020) Performed By: #### M 100.2200 #### [facility] [address] [place], [address] Globulin (S) [Mass/Vol] 3.0 g/dL Normal 2.2-4.2 [facility] Comment on above: Performed By: #### M 100.2200 #### [facility] [address] [place], [address] Glucose [Mass/Vol] 97 mg/dL Normal 70-99 [facility] Comment on above: Performed By: #### M 100.2200 #### [facility] [address] [place], [address] Potassium [Moles/Vol] 5.2 mmol/L High 3.3-5.1 [facility] Comment on above: Result Comment: Hemo lysis present, Results??could be affected. ?? Performed By: #### M 100.2200 #### [facility] [address] [place], [address] Sodium [Moles/Vol] 136 mmol/L Normal 133-145 [facility] Comment on above: Performed By: #### M 100.2200 #### [facility] [address] [place], [address] T PROT 6.6 g/dL Normal 5.9-8.4 [facility] Comment on above: Performed By: #### M 100.2200 #### [facility] [address] [place], [address] Urea nitrogen [Mass/Vol] 13 mg/dL Normal 4-19 [facility] Comment on above: Performed By: #### M 100.2200 #### [facility] [address] [place], [address] Emergency Department Summary on 09-22-2024 Emergency Department Summary [facility] Medical Records Department [address] [place] [address] Emergency Department Summary 09/22/24 MR#: [id number] Acct: [id number] Name: AIDEN FIELDS Rep #: [id number] : 1945 78 From: Alexis Quijano MD [...] 12 hours which is unusual for her. [facility] Medical History Anxiety and depression Hypoparathyroidism [...] Neosporin Allergy Unknown Unknown Verified 09/22/24 20:06 ([id number])) neomycin (From Neosporin Allergy Unknown Unknown Verified 09/22/24 20:06 ([id number])) polymyxin B (From Neosporin Allergy Unknown Unknown Verified 09/22/24 20:06 ([id number])) Antihistamines - Alkylamine Allergy PT UNSURE Verified [...] Smoking Sta (more content not included)... Normal [facility] Eosinophil percentageOrdered By: Alexis Quijano on 09-22-2024 Eosinophils/100 WBC (Bld) 2.9 % 0-5 [facility] Erythrocyte distribution wid th ratioOrdered By: Alexis Quijano on 09-22-2024 Erythrocyte distribution width (RBC) [Ratio] 13.1 % 11.6-14.6 [facility] Erythrocyte distribution wid th standard deviationOrdered By: Alexis Quijano on 09-22-2024 Erythrocyte distribution width (RBC) [Ratio] 47.2 fl High 35.1-43.9 [facility] Glomerular filtration rate ( GFR) estimation/1.73 sq m using serum, plasma, or whole bOrdered By: Alexis Quijano on 09-22-2024 GFR/1.73 sq M.predicted among non-blacks MDRD (S/P/Bld) [Vol rate/Area] 70 mL/min/{1.73_m2} >60 [facility] Comment on above: mL/min/1.73m2 CKD-EP I Creatinine Equation (2020) H AND P Exam - Hospitaliston 09-22-2024 H&P Exam - Hospitalist [facility] Medical Records Department [address] [place] [address] H P Exam - Hospitalist 09/22/24 3414 MR#: [id number] Acct: [id number] Name: AIDEN FIELDS Consuelo Rep #: [id number] : 1945 78 From: Aggie Bolton MD PCP: Dr. Erica Richardson, DO Status:ADM IN Location: [place] [id number] HPI - General General Date of Admission: [...] history Chronic anemia who presents to the [facility] ED on 09/22/2024 with history of [...] and Rocephin 1 g IV x 1. [facility] Medical History Anxiety and depression Hypoparathyroidism [...] Neosporin Allergy Unknown Unknown Verified 09/22/24 20:06 ([id number])) neomycin (From Neosporin Allergy Unknown Unknown Verified 09/22/24 20:06 (n (more content not included)... Normal [facility] Hematocrit Auto (Bld) [Volum e fraction]Ordered By: Alexis Quijano on 09-22-2024 Hematocrit (Bld) [Volume fraction] 39.5 % 37-47 [facility] Hemoglobin measurementOrdere d By: Alexis Quijano on 09-22-2024 Hemoglobin (Bld) [Mass/Vol] 13.2 g/dL 12.0-15.0 [facility] Immature granulocytes/100 WB C Auto (Bld)Ordered By: Alexis Quijano on 09-22-2024 Immature granulocytes/100 WBC (Bld) 0.400 % 0.0-0.9 [facility] Comment on above: IG% - Immature Granu locytes (promyelocytes, myelocytes and metamyelocytes) > 1% indicates that a LEFT SHIFT is Present. Influenza virus A and B and SARS-CoV-2 (COVID-19) and Respiratory syncytial virus RNAOrdered By: Alexis Quijano on 09-22-2024 SARS-CoV-2 (COVID-19) RNA LEONA+probe Ql (Unsp spec) [facility] Ketones Test strip Ql (U)Ord ered By: Alexis Quijano on 09-22-2024 Ketones Ql (U) Negative Negative [facility] - Chemistry and C hemistry - challengeOrdered By: Alexis Quijano on 09-22-2024 AST [Catalytic activity/Vol] 40 U/L High <32 [facility] Comment on above: Hemolysis present, R esults could be affected. M100.678on 09-22-2024 M100.678 Pending SARS-CoV-2 (COVID 19) Negative INFLUENZA A Negative INFLUENZA B Negative RSV PCR Negative Normal [facility] Comment on above: Performed By: #### M 100.5974 #### [facility] [place], [address] MCV (mean corpuscular volume ) determinationOrdered By: Alexis Quijano on 09-22-2024 MCV (RBC) [Entitic vol] 97.8 fL 81-99 [facility] Mean corpuscular hemoglobin (MCH) determinationOrdered By: Alexis Quijano on 09-22-2024 MCH (RBC) [Entitic mass] 32.7 pg High 27.0-32.0 [facility] Mean corpuscular hemoglobin concentration (MCHC) determinationOrdered By: Alexis Quijano on 09-22-2024 MCHC (RBC) [Mass/Vol] 33.4 g/dL 32-36 [facility] Mean platelet volume determi nationOrdered By: Alexis Quijano on 09-22-2024 Platelet mean volume (Bld) [Entitic vol] 12.0 fL 6.2-12.0 [facility] Microscopic analysis of urin e for red blood cells (RBC)Ordered By: Alexis Quijano on 09-22-2024 Microscopic analysis of urine for red blood cells (RBC) 0-5 SEEN /hpf 0-5 [facility] Monocyte percentageOrdered B y: Alexis Quijano on 09-22-2024 Monocytes/100 WBC (Bld) 7.5 % 0-10 [facility] Mucus LM Ql (Urine sed)Order ed By: Alexis Quijano on 09-22-2024 Mucus Ql (Urine sed) 0 SEEN /hpf [facility] Neutrophil percentageOrdered By: Alexis Quijano on 09-22-2024 Neutrophils/100 WBC (Bld) 69.5 % 47-70 [facility] Nitrite Test strip Ql (U)Ord ered By: Alexis Quijano on 09-22-2024 Nitrite Ql (U) Positive High Negative [facility] Nucleated red blood cell per centageOrdered By: Alexis Quijano on 09-22-2024 Nucleated RBC/100 WBC (Bld) [Ratio] 0 % 0-5 [facility] Platelet countOrdered By: Hermann Quijano on 09-22-2024 Platelets (Bld) [#/Vol] 259 10*3/uL 150-450 [facility] Potassium measurement (mass/ volume)Ordered By: Alexis Quijano on 09-22-2024 Potassium (Unsp spec) [Mass/Vol] 5.2 mmol/L High 3.3-5.1 [facility] Comment on above: Hemolysis present, R esults could be affected. Protein Test strip Ql (U)Ord ered By: Alexis Quijano on 09-22-2024 Protein Ql (U) 15 mg/dl High Negative [facility] RBC Auto (Bld) [#/Vol]Ordere d By: Alexis Quijano on 09-22-2024 RBC (Bld) [#/Vol] 4.04 10*6/uL Low 4.2-5.4 [facility] Serum creatinine measurement (mass/volume)Ordered By: Alexis Quijano on 09-22-2024 Creatinine [Mass/Vol] 0.86 mg/dL 0.70-1.20 [facility] Serum globulin measurementOr dered By: lAexis Quijano on 09-22-2024 Globulin (S) [Mass/Vol] 3.0 g/dL 2.2-4.2 [facility] Serum glucose measurement (m ass/volume)Ordered By: Alexis Quijano on 09-22-2024 Glucose [Mass/Vol] 97 mg/dL 70-99 [facility] Serum or plasma alanine kaur otransferase (ALT) measurementOrdered By: Alexis Quijano on 09-22-2024 ALT [Catalytic activity/Vol] 16 U/L <35 [facility] Comment on above: Hemolysis present, R esults could be affected. Serum or plasma albumin rajni urement (mass/volume)Ordered By: Alexis Quijano on 09-22-2024 Albumin [Mass/Vol] 3.6 g/dL 3.4-4.8 [facility] Serum or plasma albumin/glob ulin mass ratioOrdered By: Alexis Quijano on 09-22-2024 Albumin/Globulin [Mass ratio] 1.2 {ratio} 0.9-2.4 [facility] Serum or plasma alkaline dedra sphatase measurementOrdered By: Alexis Quijano on 09-22-2024 ALP [Catalytic activity/Vol] 87 U/L 35-104 [facility] Serum or plasma calcium rajni urement (mass/volume)Ordered By: Alexis Quijano on 09-22-2024 Calcium [Mass/Vol] 8.6 mg/dL 7.6-11.0 [facility] Serum or plasma creatine kin ase activityOrdered By: Alexis Quijano on 09-22-2024 CK [Catalytic activity/Vol] 316 U/L High 24-195 [facility] Serum or plasma urea nitroge n measurement (mass/volume)Ordered By: Alexis Quijano on 09-22-2024 Urea nitrogen [Mass/Vol] 13 mg/dL 4-19 [facility] Sodium levelOrdered By: Alexis Quijano on 09-22-2024 Sodium [Moles/Vol] 136 mmol/L 133-145 [facility] Squamous epithelial cells de tection in urine sediment by light microscopyOrdered By: Alexis Quijano on 09-22-2024 Epithelial cells.squamous LM Ql (Urine sed) 0-5 SEEN /hpf 5-10 [facility] Total proteinOrdered By: Katty Quijano on 09-22-2024 Protein [Mass/Vol] 6.6 g/dL 5.9-8.4 [facility] Urinalysis, Completeon 09-22 BACTERIA 4+ /hpf Normal None Seen [facility] Comment on above: Order Comment: FER VEEOR TO SPECIFY Result Comment: NEED TO REORDER Performed By: #### L 400.0001, M100.678 #### [facility] [address] [place], [address] EPI,SQUAMOUS 0-5 SEEN Normal 5-10 [facility] Comment on above: Order Comment: FER CTOR TO SPECIFY Result Comment: NEED TO REORDER Performed By: #### L 400.0001, M100.678 #### [facility] [address] [place], [address] RBC 0-5 SEEN Normal 0-5 [facility] Comment on above: Order Comment: FER CTOR TO SPECIFY Result Comment: NEED TO REORDER Performed By: #### L 400.0001, M100.678 #### [facility] [address] [place], [address] WBC 50-100 SEEN Normal 0-5 [facility] Comment on above: Order Comment: FER CTOR TO SPECIFY Result Comment: NEED TO REORDER Performed By: #### L 400.0001, M100.678 #### [facility] [address] [place], [address] Mucus Ql (Urine sed) 0 SEEN Normal [facility] Comment on above: Order Comment: FER CTOR TO SPECIFY Result Comment: NEED TO REORDER Performed By: #### L 400.0001, M100.678 #### [facility] [address] [place], [address] Urine clarityOrdered By: Katty Quijano on 09-22-2024 Clarity (U) Cloudy Clear [facility] Urine color determinationOrd ered By: Alexis Quijano on 09-22-2024 Color (U) Straw Yellow [facility] Urine cultureOrdered By: Katty Quijano on 09-22-2024 Bacteria identified Cx Nom (U) Citrobacter species Abnormal [facility] Urine glucose detectionOrder ed By: Alexis Quijano on 09-22-2024 Glucose Ql (U) Normal mg/dl Normal [facility] Urine leukocyte esterase det ection by dipstickOrdered By: Alexis Quijano on 09-22-2024 Leukocyte esterase Test strip Ql (U) 500 /ul High Negative [facility] Urine pHOrdered By: Alexis rajput on 09-22-2024 pH (U) 5.0 [pH] 5.0 - 8.0 [facility] Urine sediment bacteria coun t by microscopy (number/high power field)Ordered By: Alexis Quijano on 09-22-2024 Bacteria LM.HPF (Urine sed) [#/Area] 4 /[HPF] None Seen [facility] Urine specific gravity measu rementOrdered By: Alexis Quijano on 09-22-2024 Specific gravity (U) [Rel density] 1.015 1.002-1.030 [facility] Urine urobilinogen measureme ntOrdered By: Alexis Macie on 09-22-2024 Urobilinogen Ql (U) Normal mg/dl Normal [facility] White blood cell (WBC) count Ordered By: Alexis Lopezjay on 09-22-2024 WBC (Bld) [#/Vol] 11.6 10*3/uL High 4.4-11.0 [facility] White blood cell countOrdere d By: Alexis Quijano on 09-22-2024 White blood cell count 50-100 SEEN /hpf 0-5 [facility] Urine Cultureon 09-13-2024 [facility] Citrobacter freundii Meade Count >100,000 Citrobacter freundii: REACTION Cefepime Islt BENJAMIN <=0.12 cefTRIAXone Islt BENJAMIN 0.5 S Ciprofloxacin Islt BENJAMIN 0.5 I Gentamicin Islt BENJAMIN <=1 S levoFLOXacin Islt BENJAMIN 1 I Meropenem Islt BENJAMIN <=0.25 S Nitrofurantoin Islt BENJAMIN <=16 S Pip+Tazo Islt BENJAMIN <=4 S TMP SMX Islt BENJAMIN >=320 R Normal [facility] Comment on above: Performed By: #### M 100.2200 #### [facility] [address] [place], [address] Urine cultureOrdered By: Elena Richardson on 09-11-2024 Bacteria identified Cx Nom (U) Citrobacter freundii Abnormal [facility] Urine Cultureon 08-23-2024 [facility] Citrobacter youngae Meade Count 80,000-100,000 Citrobacter youngae: REACTION Cefepime Islt BENJAMIN <=0.12 cefTRIAXone Islt BENJAMIN 8 R Ciprofloxacin Islt BENJAMIN <=0.06 S Gentamicin Islt BENJAMIN <=1 S levoFLOXacin Islt BENJAMIN <=0.12 S Meropenem Islt BENJAMIN <=0.25 S Nitrofurantoin Islt BENJAMIN <=16 S Pip+Tazo Islt BENJAMIN <=4 S TMP SMX Islt BENJAMIN <=20 S Normal [facility] Comment on above: Performed By: #### M 100.2200 #### [facility] [address] [facility] [place], [place], [id number] Urine cultureOrdered By: Elena Richardson on 08-21-2024 Bacteria identified Cx Nom (U) Citrobacter youngae Abnormal [facility] Urine Cultureon 08-07-2024 URC Enterococcus faecali s Meade Count 11,000-25,000 Enterococcus faecalis: REACTION Ampicillin Islt BENJAMIN <=2 Ciprofloxacin Islt BENJAMIN >=8 R Gentamicin Synergy Susc Islt SYN-R R levoFLOXacin Islt BENJAMIN >=8 R Linezolid Islt BENJAMIN 2 S Nitrofurantoin Islt BENJAMIN <=16 S Streptomycin High Pot Susc Islt SYN-S S Tetracycline Islt BENJAMIN >=16 R Vancomycin Islt BENJAMIN 1 S Normal [facility] Comment on above: Performed By: #### L 500.4050, L100.0100, L501.3620 #### [facility] [address] [facility] [place], [place], [id number] Urine cultureOrdered By: Elena Richardson on 08-05-2024 Bacteria identified Cx Nom (U) Enterococcus faecalis Abnormal [facility] 12 Lead EKGon 07-04-2024 12 Lead EKG [facility] Cardiovascular Services [address] [place] [address] 12 Lead EKG 07/04/24 1343 MR#: [id number] Acct: [id number] Name: AIDEN FIELDS Rep #: [id number] : 1945 78 From: Jose Hamilton MD [...] ECG Confirmed by JOSE HAMILTON MD ([id number]), purchasing expeditor JUVENCIO MARIA ([id number]) on 07/06/2024 8:17:29 AM Referred By: ANUPAMA Confirmed By: JOSE HAMILTON MD 07/06/24 0817 Date Jose Hamilton MD CC: Dr. Froy Cameron, DO; Dr. Erica Richardson DO Signed Normal [facility] Absolute lymphocyte countOrd ered By: Froy Cameron on 07-04-2024 Lymphocytes Auto (Unsp spec) [#/Vol] 1.95 10*3/uL 0.83-4.51 [facility] Absolute neutrophil countOrd ered By: Froy Cameron on 07-04-2024 Neutrophils (Bld) [#/Vol] 6.0 10*3/uL 2.0-7.7 [facility] Amorphous sediment detection in urine sediment by light microscopyOrdered By: Froy Cameron on 07-04-2024 Amorphous sediment LM Ql (Urine sed) 2+ PHOS [facility] Anion gap in Serum or Plasma Ordered By: Froy Cameron on 07-04-2024 Anion gap [Moles/Vol] 12 mmol/L 09-03 [facility] Automated lymphocyte count a s percentage of total leukocytesOrdered By: Froy Camerno on 07-04-2024 Lymphocytes/100 WBC Auto (Unsp spec) 21.2 % 19-41 [facility] BUN/creatinine ratioOrdered By: Froy Cameron on 07-04-2024 Urea nitrogen/Creatinine [Mass ratio] 20.2 mg/mg High 10-20 [facility] Basophil percentageOrdered B y: Froy Cameron on 07-04-2024 Basophils/100 WBC (Bld) 0.9 % 0-1 [facility] Bilirubin Test strip Ql (U)O rdered By: Froy Cameron on 07-04-2024 Bilirubin Ql (U) Negative Negative [facility] Bilirubin, totalOrdered By: Froy Cameron on 07-04-2024 Bilirubin [Mass/Vol] 0.35 mg/dL 0.00-1.30 [facility] CBC W/Diff, Automatedon 06-20 Absolute Lymph 1.95 X10 3/uL Normal 0.83-4.51 [facility] Comment on above: Performed By: #### L 501.9520, L500.4050, L100.0100 #### [facility] [address] [place], [address] Absolute Neut 6.0 X10 3/uL Normal 2.0-7.7 [facility] Comment on above: Performed By: #### L 501.9520, L500.4050, L100.0100 #### [facility] [address] [place], [address] Basophils/100 WBC (Bld) 0.9 % Normal 0-1 [facility] Comment on above: Performed By: #### L 501.9520, L500.4050, L100.0100 #### [facility] [address] [place], [address] Eosinophils/100 WBC (Bld) 3.6 % Normal 0-5 [facility] Comment on above: Performed By: #### L 501.9520, L500.4050, L100.0100 #### [facility] [address] [place], [address] Erythrocyte distribution width (RBC) [Ratio] 13.4 % Normal 11.6-14.6 [facility] Comment on above: Performed By: #### L 501.9520, L500.4050, L100.0100 #### [facility] [address] [place], [address] Hematocrit (Bld) [Volume fraction] 36.9 % Low 37-47 [facility] Comment on above: Performed By: #### L 501.9520, L500.4050, L100.0100 #### [facility] [address] [place], [address] Hemoglobin (Bld) [Mass/Vol] 12.3 g/dL Normal 12.0-15.0 [facility] Comment on above: Performed By: #### L 501.9520, L500.4050, L100.0100 #### [facility] [address] [place], [address] IG% 0.400 Normal 0.0-0.9 [facility] Comment on above: Result Comment: IG% - Immature Granulocytes (promyelocytes, myelocytes and metamyelocytes) > 1% indicates that a LEFT SHIFT is Present. Performed By: #### L 501.9520, L500.4050, L100.0100 #### [facility] [address] [place], [address] Lymphocytes/100 WBC (Bld) 21.2 % Normal 19-41 [facility] Comment on above: Performed By: #### L 501.9520, L500.4050, L100.0100 #### [facility] [address] [place], [address] MCH (RBC) [Entitic mass] 32.5 pg High 27.0-32.0 [facility] Comment on above: Performed By: #### L 501.9520, L500.4050, L100.0100 #### [facility] [address] [place], [address] MCHC (RBC) [Mass/Vol] 33.3 g/dL Normal 32-36 [facility] Comment on above: Performed By: #### L 501.9520, L500.4050, L100.0100 #### [facility] [address] [place], [address] MCV (RBC) [Entitic vol] 97.6 fL Normal 81-99 [facility] Comment on above: Performed By: #### L 501.9520, L500.4050, L100.0100 #### [facility] [address] [place], [address] Monocytes/100 WBC (Bld) 8.9 % Normal 0-10 [facility] Comment on above: Performed By: #### L 501.9520, L500.4050, L100.0100 #### [facility] [address] [place], [address] Neutrophils/100 WBC (Bld) 65.0 % Normal 47-70 [facility] Comment on above: Performed By: #### L 501.9520, L500.4050, L100.0100 #### [facility] [address] [place], [address] Nucleated RBC (Bld) [#/Vol] 0 10*3/uL Normal 0-5 [facility] Comment on above: Performed By: #### L 501.9520, L500.4050, L100.0100 #### [facility] [address] [place], [address] Platelet mean volume (Bld) [Entitic vol] 11.8 fL Normal 6.2-12.0 [facility] Comment on above: Performed By: #### L 501.9520, L500.4050, L100.0100 #### [facility] [address] [place], [address] Platelets (Bld) [#/Vol] 236 10*3/uL Normal 150-450 [facility] Comment on above: Performed By: #### L 501.9520, L500.4050, L100.0100 #### [facility] [address] [place], [address] RBC (Bld) [#/Vol] 3.78 10*6/uL Low 4.2-5.4 [facility] Comment on above: Performed By: #### L 501.9520, L500.4050, L100.0100 #### [facility] [address] [place], [address] RDW SD 48.0 fl High 35.1-43.9 [facility] Comment on above: Performed By: #### L 501.9520, L500.4050, L100.0100 #### [facility] [address] [place], [address] WBC (Bld) [#/Vol] 9.2 10*3/uL Normal 4.4-11.0 [facility] Comment on above: Performed By: #### L 501.9520, L500.4050, L100.0100 #### [facility] [address] [place], [address] Carbon dioxide, total [Moles /volume] in Central venous bloodOrdered By: Froy Cameron on 07-04-2024 CO2 [Moles/Vol] 26.3 mmol/L 21.0-32.0 [facility] Chest PA and Lateralon 07-04 Chest PA and Lateral [facility] Imaging Services [address] [place] [address] Chest PA and Lateral MR#: [id number] Acct: [id number] Name: AIDEN FIELDS Rep #: [id number] : 1945 F 78 From: Reagan Nguyen PCP: Dr. Erica Richardson DO Status: REG ER Study: Chest PA and Lateral Date of Exam: 07/04/24 Exam# [id number] Ordering Dr: Froy Cameron DO PROCEDURE: CHEST [...] Froy Cameron DO; Dr. 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, [address] Albumin/Globulin [Mass ratio] 1.4 {ratio} Normal 0.9-2.4 [facility] Comment on above: Performed By: #### L 501.9520, L500.4050, L100.0100 #### [facility] [address] [place], [address] ALK PHOS 82 U/L Normal 35-104 [facility] Comment on above: Performed By: #### L 501.9520, L500.4050, L100.0100 #### [facility] [address] [place], [address] ALT [Catalytic activity/Vol] 12 U/L Normal <=34 [facility] Comment on above: Performed By: #### L 501.9520, L500.4050, L100.0100 #### [facility] [address] [place], [address] AST [Catalytic activity/Vol] 21 U/L Normal <=31 [facility] Comment on above: Performed By: #### L 501.9520, L500.4050, L100.0100 #### [facility] [address] [place], [address] Bilirubin [Mass/Vol] 0.35 mg/dL Normal 0.00-1.30 [facility] Comment on above: Performed By: #### L 501.9520, L500.4050, L100.0100 #### [facility] [address] [place], [address] BUN/CRE 20.2 RATIO High 10-20 [facility] Comment on above: Performed By: #### L 501.9520, L500.4050, L100.0100 #### [facility] [address] [place], [address] Calcium [Mass/Vol] 8.6 mg/dL Normal 7.6-11.0 [facility] Comment on above: Performed By: #### L 501.9520, L500.4050, L100.0100 #### [facility] [address] [place], [address] Chloride [Moles/Vol] 100 mmol/L Normal 98-108 [facility] Comment on above: Performed By: #### L 501.9520, L500.4050, L100.0100 #### [facility] [address] [place], [address] CO2 [Moles/Vol] 26.3 mmol/L Normal 21.0-32.0 [facility] Comment on above: Performed By: #### L 501.9520, L500.4050, L100.0100 #### [facility] [address] [place], [address] Creatinine [Mass/Vol] 0.79 mg/dL Normal 0.70-1.20 [facility] Comment on above: Performed By: #### L 501.9520, L500.4050, L100.0100 #### [facility] [address] [place], [address] ECRCL 61.64 ml/min Normal 50-250 [facility] Comment on above: Performed By: #### L 501.9520, L500.4050, L100.0100 #### [facility] [address] [place], [address] GAP 12 Normal 5-15 [facility] Comment on above: Performed By: #### L 501.9520, L500.4050, L100.0100 #### [facility] [address] [place], [address] GFR/1.73 sq M.predicted among non-blacks MDRD (S/P/Bld) [Vol rate/Area] 77 mL/min/{1.73_m2} Normal >60 [facility] Comment on above: Result Comment: mL/m in/1.73m2 CKD-EPI Creatinine Equation (2020) Performed By: #### L 501.9520, L500.4050, L100.0100 #### [facility] [address] [place], [address] Globulin (S) [Mass/Vol] 2.9 g/dL Normal 2.2-4.2 [facility] Comment on above: Performed By: #### L 501.9520, L500.4050, L100.0100 #### [facility] [address] [place], [address] Glucose [Mass/Vol] 98 mg/dL Normal 70-99 [facility] Comment on above: Performed By: #### L 501.9520, L500.4050, L100.0100 #### [facility] [address] [place], [address] Potassium [Moles/Vol] 4.0 mmol/L Normal 3.3-5.1 [facility] Comment on above: Performed By: #### L 501.9520, L500.4050, L100.0100 #### [facility] [address] [place], [address] Sodium [Moles/Vol] 139 mmol/L Normal 133-145 [facility] Comment on above: Performed By: #### L 501.9520, L500.4050, L100.0100 #### [facility] [address] [place], [address] T PROT 6.9 g/dL Normal 5.9-8.4 [facility] Comment on above: Performed By: #### L 501.9520, L500.4050, L100.0100 #### [facility] [address] [place], [address] Urea nitrogen [Mass/Vol] 16 mg/dL Normal 4-19 [facility] Comment on above: Performed By: #### L 501.9520, L500.4050, L100.0100 #### [facility] [address] [place], [address] Emergency Department Summary on 07-04-2024 Emergency Department Summary [facility] Medical Records Department [address] [place] [address] Emergency Department Summary 07/04/24 MR#: [id number] Acct: [id number] Name: AIDEN FIELDS Rep #: [id number] : 1945 78 From: Froy Cameron DO [...] this could be due to her medications. [facility] Medical History Anxiety and depression Hypoparathyroidism [...] Neosporin Allergy Unknown Unknown Verified 07/04/24 13:01 ([id number])) neomycin (From Neosporin Allergy Unknown Unknown Verified 03/02/24 21:55 (iat-[id number]-[id number])) polymyxin B (From Neosporin Allergy Unknown Unknown Verified 03/02/24 21:55 (lao-dbi-algix)) Antihistamines - Alkylamine Allergy PT UNSURE Verified [...] thyroidectomy S (more content not included)... Normal [facility] Eosinophil percentageOrdered By: Froy Cameron on 07-04-2024 Eosinophils/100 WBC (Bld) 3.6 % 0-5 [facility] Epithelial cells.squamous LM Ql (Urine sed)Ordered By: Froy Cameron on 07-04-2024 Epithelial cells.squamous LM.HPF (Urine sed) [#/Area] 0 /[HPF] 5-10 [facility] Erythrocyte distribution wid th ratioOrdered By: Froy Cameron on 07-04-2024 Erythrocyte distribution width (RBC) [Ratio] 13.4 % 11.6-14.6 [facility] Erythrocyte distribution wid th standard deviationOrdered By: Froy Cameron on 07-04-2024 Erythrocyte distribution width (RBC) [Entitic vol] 48.0 fL High 35.1-43.9 [facility] Erythrocyte distribution width (RBC) [Ratio] 48.0 fl High 35.1-43.9 [facility] Estimation of creatinine wilmer aranceOrdered By: Froy Cameron on 07-04-2024 Estimated Creatinine Clearance Calc 61.64 ml/min 50-250 [facility] GFR/1.73 sq M.predicted kai g non-blacks MDRD (S/P/Bld) [Vol rate/Area]Ordered By: Froy Cameron on 07-04-2024 Estimated GFR (MDRD) Non-Af Amer 77 >60 [facility] Comment on above: mL/min/1.73m2 CKD-EP I Creatinine Equation (2020) Glomerular filtration rate ( GFR) estimation/1.73 sq m using serum, plasma, or whole bOrdered By: Froy Cameron on 07-04-2024 GFR/1.73 sq M.predicted among non-blacks MDRD (S/P/Bld) [Vol rate/Area] 77 mL/min/{1.73_m2} >60 [facility] Comment on above: mL/min/1.73m2 CKD-EP I Creatinine Equation (2020) Glucose Ql (U)Ordered By: Jonnie Cameron on 07-04-2024 Urine Glucose (UA) Normal mg/dl Normal [facility] Hematocrit Auto (Bld) [Volum e fraction]Ordered By: Froy Cameron on 07-04-2024 Hematocrit (Bld) [Volume fraction] 36.9 % Low 37-47 [facility] Hemoglobin measurementOrdere d By: Froy Cameron on 07-04-2024 Hemoglobin (Bld) [Mass/Vol] 12.3 g/dL 12.0-15.0 [facility] Immature granulocytes/100 WB C Auto (Bld)Ordered By: Froy Cameron on 07-04-2024 Immature granulocytes/100 WBC (Bld) 0.400 % 0.0-0.9 [facility] Comment on above: IG% - Immature Granu locytes (promyelocytes, myelocytes and metamyelocytes) > 1% indicates that a LEFT SHIFT is Present. Influenza virus A and B and SARS-CoV-2 (COVID-19) and Respiratory syncytial virus RNAOrdered By: Froy Cameron on 07-04-2024 SARS-CoV-2 (COVID-19) RNA LEONA+probe Ql (Unsp spec) [facility] Ketones Test strip Ql (U)Ord ered By: Froy Cameron on 07-04-2024 Ketones Ql (U) Negative Negative [facility] - Chemistry and C hemistry - challengeOrdered By: Froy Cameron on 07-04-2024 AST [Catalytic activity/Vol] 21 U/L <32 [facility] Lymphocytes Auto (Unsp spec) [#/Vol]Ordered By: Froy Cameron on 07-04-2024 Lymphocytes (Bld) [#/Vol] 1.95 10*3/uL 0.83-4.51 [facility] Lymphocytes/100 WBC Auto (Un sp spec)Ordered By: Froy Cameron on 07-04-2024 Lymphocytes/100 WBC (Bld) 21.2 % 19-41 [facility] M100.678on 07-04-2024 M100.678 SARS-CoV-2 (COVID 19 ) Negative INFLUENZA A Negative INFLUENZA B Negative RSV PCR Negative Normal [facility] Comment on above: Performed By: #### L 501.9520, L500.4050, L100.0100 #### [facility] [address] [place] [address]. [place], [address] MCV (mean corpuscular volume ) determinationOrdered By: Froy Cameron on 07-04-2024 MCV (RBC) [Entitic vol] 97.6 fL 81-99 [facility] Mean corpuscular hemoglobin (MCH) determinationOrdered By: Froy Cameron on 07-04-2024 MCH (RBC) [Entitic mass] 32.5 pg High 27.0-32.0 [facility] Mean corpuscular hemoglobin concentration (MCHC) determinationOrdered By: Froy Cameron on 07-04-2024 MCHC (RBC) [Mass/Vol] 33.3 g/dL 32-36 [facility] Mean platelet volume determi nationOrdered By: Froy Cameron on 07-04-2024 Platelet mean volume (Bld) [Entitic vol] 11.8 fL 6.2-12.0 [facility] Microscopic analysis of urin e for red blood cells (RBC)Ordered By: Froy Cameron on 07-04-2024 Microscopic analysis of urine for red blood cells (RBC) 0 SEEN /hpf 0-5 [facility] Urine RBC 0 SEEN /hpf 0-5 [facility] Monocyte percentageOrdered B y: Froy Cameron on 07-04-2024 Monocytes/100 WBC (Bld) 8.9 % 0-10 [facility] Mucus LM Ql (Urine sed)Order ed By: Froy Cameron on 07-04-2024 Mucus Ql (Urine sed) 0 SEEN /hpf [facility] Neutrophil percentageOrdered By: Froy Cameron on 07-04-2024 Neutrophils/100 WBC (Bld) 65.0 % 47-70 [facility] Nitrite Test strip Ql (U)Ord ered By: Froy Cameron on 07-04-2024 Nitrite Ql (U) Negative Negative [facility] Nucleated red blood cell per centageOrdered By: Froy Cameron on 07-04-2024 Nucleated RBC/100 WBC (Bld) [Ratio] 0 % 0-5 [facility] Platelet countOrdered By: Jonnie Cameron on 07-04-2024 Platelets (Bld) [#/Vol] 236 10*3/uL 150-450 [facility] Potassium (Unsp spec) [Mass/ Vol]Ordered By: Froy Cameron on 07-04-2024 Potassium [Moles/Vol] 4.0 mmol/L 3.3-5.1 [facility] Potassium measurement (mass/ volume)Ordered By: Froy Cameron on 07-04-2024 Potassium (Unsp spec) [Mass/Vol] 4.0 mmol/L 3.3-5.1 [facility] Protein Test strip Ql (U)Ord ered By: Froy Cameron on 07-04-2024 Protein Ql (U) Negative Negative [facility] RBC Auto (Bld) [#/Vol]Ordere d By: Froy Cameron on 07-04-2024 RBC (Bld) [#/Vol] 3.78 10*6/uL Low 4.2-5.4 [facility] Serum creatinine measurement (mass/volume)Ordered By: Froy Cameron on 07-04-2024 Creatinine [Mass/Vol] 0.79 mg/dL 0.70-1.20 [facility] Serum globulin measurementOr dered By: Froy Cameron on 07-04-2024 Globulin (S) [Mass/Vol] 2.9 g/dL 2.2-4.2 [facility] Serum glucose measurement (m ass/volume)Ordered By: Froy Cameron on 07-04-2024 Glucose [Mass/Vol] 98 mg/dL 70-99 [facility] Serum or plasma alanine kaur otransferase (ALT) measurementOrdered By: Froy Cameron on 07-04-2024 ALT [Catalytic activity/Vol] 12 U/L <35 [facility] Serum or plasma albumin rajni urement (mass/volume)Ordered By: Froy Cameron on 07-04-2024 Albumin [Mass/Vol] 4.0 g/dL 3.4-4.8 [facility] Serum or plasma albumin/glob ulin mass ratioOrdered By: Froy Cameron 07-04-2024 Albumin/Globulin [Mass ratio] 1.4 {ratio} 0.9-2.4 [facility] Serum or plasma alkaline dedra sphatase measurementOrdered By: Froy Cameron 07-04-2024 ALP [Catalytic activity/Vol] 82 U/L 35-104 [facility] Serum or plasma calcium rajni urement (mass/volume)Ordered By: Froy Cameron 07-04-2024 Calcium [Mass/Vol] 8.6 mg/dL 7.6-11.0 [facility] Serum or plasma urea nitroge n measurement (mass/volume)Ordered By: Froy Cameron 07-04-2024 Urea nitrogen [Mass/Vol] 16 mg/dL 4-19 [facility] Sodium levelOrdered By: Froy Cameron 07-04-2024 Sodium [Moles/Vol] 139 mmol/L 133-145 [facility] Squamous epithelial cells de tection in urine sediment by light microscopyOrdered By: Froy Cameron 07-04-2024 Epithelial cells.squamous LM Ql (Urine sed) 0 SEEN /hpf 5-10 [facility] TSH DL <= 0.005 mIU/L QnOrde red By: Froy Cameron on 07-04-2024 Thyroid Stimulating Hormone (TSH) 0.164 uIU/mL Low 0.300-4.200 [facility] TSH Qn 0.164 uIU/mL Low 0.300-4.200 [facility] Thyroid Stim Hormone (TSH)on 07-04-2024 TSH 0.164 uIU/mL Low 0.300-4.200 [facility] Comment on above: Performed By: #### L [id number], L500.4050, L100.0100 #### [facility] [address] [place], [address] Total proteinOrdered By: Zeenat Cameron on 07-04-2024 Protein [Mass/Vol] 6.9 g/dL 5.9-8.4 [facility] Urinalysis, Completeon 07-04 AMORPHOUS 2+ PHOS Normal [facility] Comment on above: Order Comment: COLLE CTOR TO SPECIFY Performed By: #### L [id number], [id number], L100.0100 #### [facility] [address] [place], [address] RBC 0 SEEN Normal 0-5 [facility] Comment on above: Order Comment: COLLE CTOR TO SPECIFY Performed By: #### L [id number], [id number], L100.0100 #### [facility] [address] [place], [address] WBC 0-5 SEEN Normal 0-5 [facility] Comment on above: Order Comment: COLLE CTOR TO SPECIFY Performed By: #### L [id number], [id number], L100.0100 #### [facility] [address] [place], [address] BACTERIA 0 SEEN Normal None Seen [facility] Comment on above: Order Comment: COLLE CTOR TO SPECIFY Performed By: #### L [id number], [id number], L100.0100 #### [facility] [address] [place], [address] EPI,SQUAMOUS 0 SEEN Normal 5-10 [facility] Comment on above: Order Comment: COLLE CTOR TO SPECIFY Performed By: #### L [id number], [id number], L100.0100 #### [facility] [address] [place], [address] Mucus Ql (Urine sed) 0 SEEN Normal [facility] Comment on above: Order Comment: COLLE CTOR TO SPECIFY Performed By: #### L [id number], L500.4050, L100.0100 #### [facility] [address] [place], [address] Urine blood detectionOrdered By: Froy Cameron on 07-04-2024 Urine Occult Blood Negative Negative [facility] Urine clarityOrdered By: Zeenat Cameron on 07-04-2024 Clarity (U) Clear Clear [facility] Urine color determinationOrd ered By: Froy Cameron on 07-04-2024 Color (U) Straw Yellow [facility] Urine glucose detectionOrder ed By: Froy Cameron on 07-04-2024 Glucose Ql (U) Normal mg/dl Normal [facility] Urine leukocyte esterase det ection by dipstickOrdered By: Froy Cameron on 07-04-2024 Leukocyte esterase Test strip Ql (U) Negative Negative [facility] Urine pHOrdered By: Froy gonzalez on 07-04-2024 pH (U) 8.0 [pH] 5.0 - 8.0 [facility] Urine sediment bacteria coun t by microscopy (number/high power field)Ordered By: Froy Cameron on 07-04-2024 Bacteria LM.HPF (Urine sed) [#/Area] 0 /[HPF] None Seen [facility] Urine specific gravity measu rementOrdered By: Froy Cameron on 07-04-2024 Specific gravity (U) [Rel density] 1.010 1.002-1.030 [facility] Urine urobilinogen measureme ntOrdered By: Froy Anupama on 07-04-2024 Urobilinogen Ql (U) Normal mg/dl Normal [facility] Urobilinogen Ql (U)Ordered B y: Froy Lundbergalexandria on 07-04-2024 Urine Urobilinogen Normal mg/dl Normal [facility] White blood cell (WBC) count Ordered By: Froy Lundbergalexandria on 07-04-2024 WBC (Bld) [#/Vol] 9.2 10*3/uL 4.4-11.0 [facility] White blood cell countOrdere d By: Froy Anupama on 07-04-2024 Urine WBC 0-5 SEEN /hpf 0-5 [facility] White blood cell count 0-5 SEEN /hpf 0-5 [facility] Chest PA and Lateralon 06-04 Chest PA and Lateral [facility] Imaging Services [address] [place], [place] [address] Chest PA and Lateral MR#: [id number] Acct: [id number] Name: AIDEN FIELDS Rep #: [id number] : 1945 F 78 From: [place] Mckenna PCP: Dr. Erica Richardson DO Status: REG CLI Study: Chest PA and Lateral Date of Exam: 06/04/24 Exam# [id number] Ordering Dr: Erica Richardson DO PROCEDURE: CHEST [...] noted. No evidence of cardiomegaly. Reading Location: [address] CC: Dr. Erica Malys, DO Radio Mechanic Helper: Signed Normal [facility] Urine Cultureon 05-29-2024 URC Enterobacter cloacae complex Meade Count 25,000-50,000 Enterobacter cloacae complex: REACTION Cefepime Islt BENJAMIN <=0.12 Ciprofloxacin Islt BENJAMIN <=0.06 S Gentamicin Islt BENJAMIN <=1 S levoFLOXacin Islt BENJAMIN <=0.12 S Meropenem Islt BENJAMIN <=0.25 S Nitrofurantoin Islt BENJAMIN 32 S Pip+Tazo Islt BENJAMIN <=4 S TMP SMX Islt BENJAMIN >=320 R Normal [facility] Comment on above: Performed By: #### L [id number], L500.4050, L100.0100 #### [facility] [address] [place], [place], [id number] Absolute lymphocyte countOrd ered By: Erica Richardson on 05-27-2024 Lymphocytes Auto (Unsp spec) [#/Vol] 1.94 10*3/uL 0.83-4.51 [facility] Absolute neutrophil countOrd ered By: Erica Richardson on 05-27-2024 Neutrophils (Bld) [#/Vol] 5.9 10*3/uL 2.0-7.7 [facility] Albumin to globulin ratioOrd ered By: Erica Richardson on 05-27-2024 Albumin/Globulin [Mass ratio] 0.9 {ratio} 0.9-2.4 [facility] Automated lymphocyte count a s percentage of total leukocytesOrdered By: Erica Richardson on 05-27-2024 Lymphocytes/100 WBC Auto (Unsp spec) 21.2 % 19-41 [facility] Basophil percentageOrdered B y: Erica Richardson on 05-27-2024 Basophils/100 WBC (Bld) 0.8 % 0-1 [facility] Bilirubin, totalOrdered By: Erica Richardson on 05-27-2024 Bilirubin [Mass/Vol] 0.60 mg/dL 0.20-1.00 [facility] Comment on above: For patients on eltr ombopag therapy, use of Dimension [place] TBIL is not recommended. Blood urea nitrogen (BUN)/cr eatinine ratioOrdered By: Erica Richardson on 05-27-2024 Urea nitrogen/Creatinine [Mass ratio] 15.1 mg/mg 10-20 [facility] C-reactive protein measureme nt by high sensitivity methodOrdered By: Erica Richardson on 05-27-2024 C-Reactive Protein Extended Range 6.23 mg/L High 0.0-3.0 [facility] Comment on above: C-Reactive Protein ( CRP) provides useful information for thediagnosis, therapy and monitoring of inflammatory processesand associated diseases. For the evaluation of Relative Riskfor Cardiovascular Disease, a High Sensitivity CRP (HSCRP)should be ordered. C-reactive protein measurement by high sensitivity method 6.23 mg/L High 0.0-3.0 [facility] Comment on above: C-Reactive Protein ( CRP) provides useful information for thediagnosis, therapy and monitoring of inflammatory processesand associated diseases. For the evaluation of Relative Riskfor Cardiovascular Disease, a High Sensitivity CRP (HSCRP)should be ordered. CBC W/Diff, Automatedon Absolute Lymph 1.94 X10 3/uL Normal 0.83-4.51 [facility] Comment on above: Performed By: #### L [id number], L500.4050, L100.0100 #### [facility] [address] [place], [address] Absolute Neut 5.9 X10 3/uL Normal 2.0-7.7 [facility] Comment on above: Performed By: #### L [id number], L500.4050, L100.0100 #### [facility] [address] [place], [address] Basophils/100 WBC (Bld) 0.8 % Normal 0-1 [facility] Comment on above: Performed By: #### L [id number], L500.4050, L100.0100 #### [facility] [address] [place], [address] Eosinophils/100 WBC (Bld) 3.8 % Normal 0-5 [facility] Comment on above: Performed By: #### L [id number], [id number], L100.0100 #### [facility] [address] [place], [address] Erythrocyte distribution width (RBC) [Ratio] 14.0 % Normal 11.6-14.6 [facility] Comment on above: Performed By: #### L [id number], L500.4050, L100.0100 #### [facility] [address] [place], [address] Hematocrit (Bld) [Volume fraction] 39.2 % Normal 37-47 [facility] Comment on above: Performed By: #### L [id number], L500.4050, L100.0100 #### [facility] [address] [place], [address] Hemoglobin (Bld) [Mass/Vol] 12.6 g/dL Normal 12.0-15.0 [facility] Comment on above: Performed By: #### L [id number], L500.4050, L100.0100 #### [facility] [address] [place], [address] IG% 0.300 Normal 0.0-0.9 [facility] Comment on above: Result Comment: IG% - Immature Granulocytes (promyelocytes, myelocytes and metamyelocytes) > 1% indicates that a LEFT SHIFT is Present. Performed By: #### L 501.9520, L500.4050, L100.0100 #### [facility] [address] [place], [address] Lymphocytes/100 WBC (Bld) 21.2 % Normal 19-41 [facility] Comment on above: Performed By: #### L [id number], L500.4050, L100.0100 #### [facility] [address] [place], [address] MCH (RBC) [Entitic mass] 32.0 pg Normal 27.0-32.0 [facility] Comment on above: Performed By: #### L 501.9520, L500.4050, L100.0100 #### [facility] [address] [place], [address] MCHC (RBC) [Mass/Vol] 32.1 g/dL Normal 32-36 [facility] Comment on above: Performed By: #### L 501.9520, L500.4050, L100.0100 #### [facility] [address] [place], [address] MCV (RBC) [Entitic vol] 99.5 fL High 81-99 [facility] Comment on above: Performed By: #### L 501.9520, L500.4050, L100.0100 #### [facility] [address] [place], [address] Monocytes/100 WBC (Bld) 9.0 % Normal 0-10 [facility] Comment on above: Performed By: #### L 501.9520, L500.4050, L100.0100 #### [facility] [address] [place], [address] Neutrophils/100 WBC (Bld) 64.9 % Normal 47-70 [facility] Comment on above: Performed By: #### L 501.9520, L500.4050, L100.0100 #### [facility] [address] [place], [address] Nucleated RBC (Bld) [#/Vol] 0 10*3/uL Normal 0-5 [facility] Comment on above: Performed By: #### L [id number], L500.4050, L100.0100 #### [facility] [address] [place], [address] Platelet mean volume (Bld) [Entitic vol] 12.7 fL High 6.2-12.0 [facility] Comment on above: Performed By: #### L [id number], L500.4050, L100.0100 #### [facility] [address] [place], [address] Platelets (Bld) [#/Vol] 239 10*3/uL Normal 150-450 [facility] Comment on above: Performed By: #### L [id number], L500.4050, L100.0100 #### [facility] [address] [place], [address] RBC (Bld) [#/Vol] 3.94 10*6/uL Low 4.2-5.4 [facility] Comment on above: Performed By: #### L [id number], L500.4050, L100.0100 #### [facility] [address] [place], [address] RDW SD 51.3 fl High 35.1-43.9 [facility] Comment on above: Performed By: #### L [id number], L500.4050, L100.0100 #### [facility] [address] [place], [address] WBC (Bld) [#/Vol] 9.1 10*3/uL Normal 4.4-11.0 [facility] Comment on above: Performed By: #### L 501.9520, L500.4050, L100.0100 #### [facility] [address] [place], [address] CRPon 05-27-2024 C-REACTIVE PROT 6.23 mg/L High 0.0-3.0 [facility] Comment on above: Result Comment: C-Re active Protein (CRP) provides useful information for the diagnosis, therapy and monitoring of inflammatory processes and associated diseases. For the evaluation of Relative Risk for Cardiovascular Disease, a High Sensitivity CRP (HSCRP) should be ordered. Performed By: #### L 501.9520, L500.4050, L100.0100 #### [facility] [address] [place], [address] Carbon dioxide measurementOr dered By: Erica Richardson on 05-27-2024 CO2 [Moles/Vol] 26.0 mmol/L 21.0-32.0 [facility] Chloride measurementOrdered By: Erica Richardson on 05-27-2024 Chloride [Moles/Vol] 99 mmol/L 98-107 [facility] Comprehensive Metabolic Prof ilon 05-27-2024 Albumin [Mass/Vol] 3.6 g/dL Normal 3.2-5.0 [facility] Comment on above: Performed By: #### L 501.9520, L500.4050, L100.0100 #### [facility] [address] [place], [address] Albumin/Globulin [Mass ratio] 0.9 {ratio} Normal 0.9-2.4 [facility] Comment on above: Performed By: #### L 501.9520, L500.4050, L100.0100 #### [facility] [address] [place], [address] ALK P 90 U/L Normal 45-117 [facility] Comment on above: Performed By: #### L 501.9520, L500.4050, L100.0100 #### [facility] [address] [place], [address] ALT [Catalytic activity/Vol] 20 U/L Normal 13-56 [facility] Comment on above: Performed By: #### L [id number], L500.4050, L100.0100 #### [facility] [address] [place], [address] AST [Catalytic activity/Vol] 17 U/L Normal 15-37 [facility] Comment on above: Performed By: #### L 501.9520, L500.4050, L100.0100 #### [facility] [address] [place], [address] Bilirubin [Mass/Vol] 0.60 mg/dL Normal 0.20-1.00 [facility] Comment on above: Result Comment: For patients on eltrombopag therapy, use of Dimension [place] TBIL is not recommended. Performed By: #### L 501.9520, L500.4050, L100.0100 #### [facility] [address] [place], [address] BUN/CRE 15.1 RATIO Normal 10-20 [facility] Comment on above: Performed By: #### L 501.9520, L500.4050, L100.0100 #### [facility] [address] [place], [address] CA,Total 8.8 mg/dL Normal 8.5-10.1 [facility] Comment on above: Performed By: #### L 501.9520, L500.4050, L100.0100 #### [facility] [address] [place], [address] Chloride [Moles/Vol] 99 mmol/L Normal 98-107 [facility] Comment on above: Performed By: #### L 501.9520, L500.4050, L100.0100 #### [facility] [address] [place], [address] CO2 [Moles/Vol] 26.0 mmol/L Normal 21.0-32.0 [facility] Comment on above: Performed By: #### L 501.9520, L500.4050, L100.0100 #### [facility] [address] [place], [address] Creatinine [Mass/Vol] 0.79 mg/dL Normal 0.55-1.02 [facility] Comment on above: Result Comment: The validity of the calculated GFR GFRAA in patients over 70 years has not been determined. Clinical correlation is essential. Performed By: #### L 501.9520, L500.4050, L100.0100 #### [facility] [address] [place], [address] EST GFR - AA 90 mL/min Normal >60 [facility] Comment on above: Result Comment: Afri can Wallisian GFR Calc Performed By: #### L 501.9520, L500.4050, L100.0100 #### [facility] [address] [place], [address] GAP 11 Normal 5-15 [facility] Comment on above: Performed By: #### L 501.9520, L500.4050, L100.0100 #### [facility] [address] [place], [address] GFR/1.73 sq M.predicted among non-blacks MDRD (S/P/Bld) [Vol rate/Area] 75 mL/min/{1.73_m2} Normal >60 [facility] Comment on above: Result Comment: Non- GFR Calc Performed By: #### L 501.9520, L500.4050, L100.0100 #### [facility] [address] [place], [address] Globulin (S) [Mass/Vol] 4.1 g/dL Normal 2.2-4.2 [facility] Comment on above: Performed By: #### L 501.9520, L500.4050, L100.0100 #### [facility] [address] [place], [address] Glucose [Mass/Vol] 87 mg/dL Normal 74-106 [facility] Comment on above: Performed By: #### L 501.9520, L500.4050, L100.0100 #### [facility] [address] [place], [address] Potassium [Moles/Vol] 3.9 mmol/L Normal 3.5-5.1 [facility] Comment on above: Performed By: #### L 501.9520, L500.4050, L100.0100 #### [facility] [address] [place], [address] Sodium [Moles/Vol] 136 mmol/L Normal 136-145 [facility] Comment on above: Performed By: #### L 501.9520, L500.4050, L100.0100 #### [facility] [address] [place], [address] T PROT 7.7 g/dL Normal 6.4-8.2 [facility] Comment on above: Performed By: #### L 501.9520, L500.4050, L100.0100 #### [facility] [address] [place], [address] Urea nitrogen [Mass/Vol] 12 mg/dL Normal 7-18 [facility] Comment on above: Performed By: #### L 501.9520, L500.4050, L100.0100 #### [facility] [address] [place], [address] Direct serum free thyroxine (FT4) measurementOrdered By: Erica Richardson on 05-27-2024 Free T4 [Mass/Vol] 1.14 ng/dL 0.76-1.46 [facility] Eosinophil percentageOrdered By: Erica Richardson on 05-27-2024 Eosinophils/100 WBC (Bld) 3.8 % 0-5 [facility] Erythrocyte Sed Rateon 05-27 SED RATE 35 mm/hr High 0-30 [facility] Comment on above: Performed By: #### L [id number], L500.4050, L100.0100 #### [facility] [address] [place], [address] Erythrocyte distribution wid th ratioOrdered By: Erica Richardson on 05-27-2024 Erythrocyte distribution width (RBC) [Ratio] 14.0 % 11.6-14.6 [facility] Erythrocyte distribution wid th standard deviationOrdered By: Erica Richardson on 05-27-2024 Erythrocyte distribution width (RBC) [Entitic vol] 51.3 fL High 35.1-43.9 [facility] Erythrocyte distribution width (RBC) [Ratio] 51.3 fl High 35.1-43.9 [facility] Erythrocyte sedimentation ra teOrdered By: Erica Richardson on 05-27-2024 ESR (Bld) [Velocity] 35 mm/h High 0-30 [facility] Estimated glomerular filtrat ion rate (GFR) AmericanOrdered By: Erica Richardson on 05-27-2024 Estimated GFR (MDRD) Amer 90 mL/min >60 [facility] Comment on above: GFR Calc Free T3on 05-27-2024 Free T3 [Mass/Vol] 2.0 pg/mL Low 2.18-3.98 [facility] Comment on above: Performed By: #### L [id number], L500.4050, L100.0100 #### [facility] [address] [place] [address]. [place], [place], [id number] Free L3Hlmebas By: Erica graham on 05-27-2024 Free T3 [Mass/Vol] 2.0 pg/mL Low 2.18-3.98 [facility] Free Triiodothyronine (T3) pg/dL 2.0 pg/mL Low 2.18-3.98 [facility] Glomerular filtration rate ( GFR) estimationOrdered By: Erica Richardson on 05-27-2024 Estimated GFR (MDRD) Non-Af Amer 75 mL/min >60 [facility] Comment on above: Non- GFR Calc GFR/1.73 sq M.predicted among non-blacks MDRD (S/P/Bld) [Vol rate/Area] 75 mL/min/{1.73_m2} >60 [facility] Comment on above: Non- GFR Calc Glucose measurementOrdered B y: Erica Richardson on 05-27-2024 Glucose [Mass/Vol] 87 mg/dL 74-106 [facility] Hematocrit Auto (Bld) [Volum e fraction]Ordered By: Erica Richardson on 05-27-2024 Hematocrit (Bld) [Volume fraction] 39.2 % 37-47 [facility] Hemoglobin measurementOrdere d By: Erica Richardson on 05-27-2024 Hemoglobin (Bld) [Mass/Vol] 12.6 g/dL 12.0-15.0 [facility] Immature granulocytes/100 WB C Auto (Bld)Ordered By: Erica Richardson on 05-27-2024 Immature granulocytes/100 WBC (Bld) 0.300 % 0.0-0.9 [facility] Comment on above: IG% - Immature Granu locytes (promyelocytes, myelocytes and metamyelocytes) > 1% indicates that a LEFT SHIFT is Present. Laboratory - Chemistry and C hemistry - challengeOrdered By: Erica Richardson on 05-27-2024 AST [Catalytic activity/Vol] 17 U/L 15-37 [facility] Lymphocytes Auto (Unsp spec) [#/Vol]Ordered By: Erica Richardson on 05-27-2024 Lymphocytes (Bld) [#/Vol] 1.94 10*3/uL 0.83-4.51 [facility] [facility] Lymphocytes/100 WBC Auto (Un sp spec)Ordered By: Erica Richardson on 05-27-2024 Lymphocytes/100 WBC (Bld) 21.2 % 19-41 [facility] MCV (mean corpuscular volume ) determinationOrdered By: Erica Richardson on 05-27-2024 MCV (RBC) [Entitic vol] 99.5 fL High 81-99 [facility] Mean corpuscular hemoglobin (MCH) determinationOrdered By: Erica Richardson on 05-27-2024 MCH (RBC) [Entitic mass] 32.0 pg 27.0-32.0 [facility] Mean corpuscular hemoglobin concentration (MCHC) determinationOrdered By: Erica Richardson on 05-27-2024 MCHC (RBC) [Mass/Vol] 32.1 g/dL 32-36 [facility] Mean platelet volume determi nationOrdered By: Erica Richardson on 05-27-2024 Platelet mean volume (Bld) [Entitic vol] 12.7 fL High 6.2-12.0 [facility] Monocyte percentageOrdered B y: Erica Richardson on 05-27-2024 Monocytes/100 WBC (Bld) 9.0 % 0-10 [facility] Neutrophil percentageOrdered By: Erica Richardson on 05-27-2024 Neutrophils/100 WBC (Bld) 64.9 % 47-70 [facility] Nucleated red blood cell per centageOrdered By: Erica Richardson on 05-27-2024 Nucleated RBC/100 WBC (Bld) [Ratio] 0 % 0-5 [facility] Platelet countOrdered By: Anny Richardson on 05-27-2024 Platelets (Bld) [#/Vol] 239 10*3/uL 150-450 [facility] Potassium measurementOrdered By: Erica Richardson on 05-27-2024 Potassium [Moles/Vol] 3.9 mmol/L 3.5-5.1 [facility] RBC Auto (Bld) [#/Vol]Ordere d By: Erica Richardson on 05-27-2024 RBC (Bld) [#/Vol] 3.94 10*6/uL Low 4.2-5.4 [facility] Serum anion gap measurementO rdered By: Erica Richardson on 05-27-2024 Anion gap [Moles/Vol] 11 mmol/L 5-15 [facility] Serum globulin measurementOr dered By: Erica Richardson on 05-27-2024 Globulin (S) [Mass/Vol] 4.1 g/dL 2.2-4.2 [facility] Serum or plasma alanine kaur otransferase (ALT) measurementOrdered By: Erica Richardson on 05-27-2024 ALT [Catalytic activity/Vol] 20 U/L 13-56 [facility] Serum or plasma albumin rajni urement (mass/volume)Ordered By: Erica Richardson on 05-27-2024 Albumin [Mass/Vol] 3.6 g/dL 3.2-5.0 [facility] Serum or plasma alkaline dedra sphatase measurementOrdered By: Erica Richardson on 05-27-2024 ALP [Catalytic activity/Vol] 90 U/L 45-117 [facility] Serum or plasma calcium rajni urement (mass/volume)Ordered By: Erica Richardson on 05-27-2024 Calcium [Mass/Vol] 8.8 mg/dL 8.5-10.1 [facility] Serum or plasma creatinine m easurement (mass/volume)Ordered By: Erica Richardson on 05-27-2024 Creatinine [Mass/Vol] 0.79 mg/dL 0.55-1.02 [facility] Comment on above: The validity of the calculated GFR & GFRAA in patients over 70 years has not been determined. Clinical correlation is essential. Serum or plasma thyroid stim ulating hormone (TSH) measurement (units/volume)Ordered By: Erica Richardson on 05-27-2024 TSH Qn 2.650 uIU/mL 0.358-3.740 [facility] Serum or plasma urea nitroge n measurement (mass/volume)Ordered By: Erica Richardson on 05-27-2024 Urea nitrogen [Mass/Vol] 12 mg/dL 7-18 [facility] Sodium levelOrdered By: Erica Richardson on 05-27-2024 Sodium [Moles/Vol] 136 mmol/L 136-145 [facility] T4 Free Directon 05-27-2024 T4 FREE DIRECT 1.14 ng/dL Normal 0.76-1.46 [facility] Comment on above: Performed By: #### L 501.9520, L500.4050, L100.0100 #### [facility] [address] [facility] [place], [place], [id number] TSH QnOrdered By: Erica Richardson on 05-27-2024 Thyroid Stimulating Hormone (TSH) 2.650 uIU/mL 0.358-3.740 [facility] Thyroid Stim Hormone (TSH)on 05-27-2024 TSH 2.650 uIU/mL Normal 0.358-3.740 [facility] Comment on above: Performed By: #### L 501.9520, L500.4050, L100.0100 #### [facility] [address] [facility] [place], [place], [id number] Total proteinOrdered By: Elena Richardson on 02-05-2025 Protein [Mass/Vol] 7.7 g/dL 6.4-8.2 [facility] Urine cultureOrdered By: Elena Richardson on 05-27-2024 Bacteria identified Cx Nom (U) Enterobacter cloacae complex Abnormal [facility] White blood cell (WBC) count Ordered By: Erica Richardson on 05-27-2024 WBC (Bld) [#/Vol] 9.1 10*3/uL 4.4-11.0 [facility] Urine Cultureon 04-26-2024 URC Presumptive E. coli Meade Count >100,000 Presumptive E. coli: REACTION Ampicillin [...] TMP SMX Islt BENJAMIN <=20 S Normal [facility] Comment on above: Performed By: #### L 500.4050, L100.0100, L501.3620 #### [facility] [address] [facility] [place], [address] Urine cultureOrdered By: Elena Richardson on 04-24-2024 Bacteria identified Cx Nom (U) Presumptive E. coli Abnormal [facility] 12 Lead EKGon 03-02-2024 12 Lead EKG [facility] Cardiovascular Services [address] [place] [address] 12 Lead EKG 03/02/24 2201 MR#: [id number] Acct: [id number] Name: AIDEN FIELDS Rep #: [id number] : 1945 78 From: Jose Hamilton MD [...] ECG Confirmed by JOSE HAMILTON MD ([id number]), purchasing expeditor JUVENCIO MARIA ([id number]) on 03/03/2024 6:42:17 AM Referred By: Confirmed By: JOSE HAMILTON MD 03/03/24 0642 Date Jose Hamilton MD CC: Dr. Cheikh Ybarra DO; Dr. Erica Richardson DO Signed Normal [facility] Emergency Department Summary on 03-02-2024 Emergency Department Summary [facility] Medical Records Department [address] [place] [address] Emergency Department Summary 03/02/24 MR#: [id number] Acct: [id number] Name: AIDEN FIELDS Rep #: [id number] : 1945 78 From: Cheikh Ybarra DO [...] any difficulty ambulating around the house today. [facility] Medical History Anxiety and depression Hypoparathyroidism [...] Neosporin Allergy Unknown Unknown Verified 03/02/24 21:55 ([id number])) neomycin (From Neosporin Allergy Unknown Unknown Verified 03/02/24 21:55 ([id number]-hah-[id number])) polymyxin B (From Neosporin Allergy Unknown Unknown Verified 03/02/24 21:55 ([id number]-[id number])) Antihistamines - Alkylamine Allergy PT UNSURE Verified [...] per d (more content not included)... Normal [facility] Emergency Department Summary on 12-18-2023 Emergency Department Summary [facility] Medical Records Department [address] [place] [address] Emergency Department Summary 12/18/23 MR#: [id number] Acct: [id number] Name: AIDEN FIELDS Consuelo Rep #: [id number] : 1945 78 From: Jorge Cardona MD [...] Neosporin Allergy Unknown Unknown Verified 12/18/23 19:57 ([id number])) neomycin (From Neosporin Allergy Unknown Unknown Verified 12/18/23 19:57 (crn-mzv-[id number])) polymyxin B (From Neosporin Allergy Unknown Unknown Verified 12/18/23 19:57 (eza-fta-jexrv)) Antihistamines - Alkylamine Allergy PT UNSURE Verified 12/18/23 19:57 OF REACTION diphenhydramine (From Allergy PT UNSURE Verified 12/18/23 19:57 Benadryl) OF REACTION Family History Unknown Thyroid disorder Cancer High (more content not included)... Normal [facility] ANTINUCLEAR ANTIBODIES DIREC Ton 12-13-2023 MASHA,DIRECT Negative Normal Negative [facility] Comment on above: Result Comment: Perf ormed at: [facility] [address] [id number] Manager Night: Mendez Dominguez PhD, Phone: [phone] Performed By: #### L 310.3465, J871.5650, L100.0100 #### [facility] [address] [place], [place], [id number] CCP IgG Antibodieson 024 CCP IgG Ab. 3 units Normal 0-19 [facility] Comment on above: Result Comment: Nega tive <20 Weak positive 20 - 39 Moderate positive 40 - 59 Strong positive >59 Performed at: [facility] [address] [id number] Manager Night: Mendez Dominguez PhD, Phone: [phone] Performed By: #### L 052.0397, [id number], L100.0100 #### [facility] [address] [place], [place], [address] CBC W/Diff, Automatedon 11-21 Absolute Lymph 1.28 X10 3/uL Normal 0.83-4.51 [facility] Comment on above: Performed By: #### M 100.2200 #### [facility] [address] [place], [place], [id number] Absolute Neut 9.6 X10 3/uL High 2.0-7.7 [facility] Comment on above: Performed By: #### M 100.2200 #### [facility] [address] [place], [address] Basophils/100 WBC (Bld) 0.6 % Normal 0-1 [facility] Comment on above: Performed By: #### M 100.2200 #### [facility] [address] [place], [address] Eosinophils/100 WBC (Bld) 2.9 % Normal 0-5 [facility] Comment on above: Performed By: #### M 100.2200 #### [facility] [address] [place], [address] Erythrocyte distribution width (RBC) [Ratio] 13.2 % Normal 11.6-14.6 [facility] Comment on above: Performed By: #### M 100.2200 #### [facility] [address] [place], [address] Hematocrit (Bld) [Volume fraction] 39.3 % Normal 37-47 [facility] Comment on above: Performed By: #### M 100.2200 #### [facility] [address] [place], [address] Hemoglobin (Bld) [Mass/Vol] 12.4 g/dL Normal 12.0-15.0 [facility] Comment on above: Performed By: #### M 100.2200 #### [facility] [address] [place], [address] IG% 0.200 Normal 0.0-0.9 [facility] Comment on above: Result Comment: IG% - Immature Granulocytes (promyelocytes, myelocytes and metamyelocytes) > 1% indicates that a LEFT SHIFT is Present. Performed By: #### M 100.2200 #### [facility] [address] [place], [address] Lymphocytes/100 WBC (Bld) 10.5 % Low 19-41 [facility] Comment on above: Performed By: #### M 100.2200 #### [facility] [address] [place], [address] MCH (RBC) [Entitic mass] 32.5 pg High 27.0-32.0 [facility] Comment on above: Performed By: #### M 100.2200 #### [facility] [address] [place], [address] MCHC (RBC) [Mass/Vol] 31.6 g/dL Low 32-36 [facility] Comment on above: Performed By: #### M 100.2200 #### [facility] [address] [place], [address] MCV (RBC) [Entitic vol] 102.9 fL High 81-99 [facility] Comment on above: Performed By: #### M 100.2200 #### [facility] [address] [place], [address] Monocytes/100 WBC (Bld) 7.8 % Normal 0-10 [facility] Comment on above: Performed By: #### M 100.2200 #### [facility] [address] [place], [address] Neutrophils/100 WBC (Bld) 78.0 % High 47-70 [facility] Comment on above: Performed By: #### M 100.2200 #### [facility] [address] [place], [address] Nucleated RBC (Bld) [#/Vol] 0 10*3/uL Normal 0-5 [facility] Comment on above: Performed By: #### M 100.2200 #### [facility] [address] [place], [address] Platelet mean volume (Bld) [Entitic vol] 13.1 fL High 6.2-12.0 [facility] Comment on above: Performed By: #### M 100.2200 #### [facility] [address] [place], [address] Platelets (Bld) [#/Vol] 215 10*3/uL Normal 150-450 [facility] Comment on above: Performed By: #### M 100.2200 #### [facility] [address] [place], [address] RBC (Bld) [#/Vol] 3.82 10*6/uL Low 4.2-5.4 [facility] Comment on above: Performed By: #### M 100.2200 #### [facility] [address] [place], [address] RDW SD 49.6 fl High 35.1-43.9 [facility] Comment on above: Performed By: #### M 100.2200 #### [facility] [address] [place], [address] WBC (Bld) [#/Vol] 12.2 10*3/uL High 4.4-11.0 [facility] Comment on above: Performed By: #### M 100.2200 #### [facility] [address] [place], [address] CRPon 12-12-2023 C-REACTIVE PROT 40.10 mg/L High 0.0-3.0 [facility] Comment on above: Result Comment: C-Re active Protein (CRP) provides useful information for the diagnosis, therapy and monitoring of inflammatory processes and associated diseases. For the evaluation of Relative Risk for Cardiovascular Disease, a High Sensitivity CRP (HSCRP) should be ordered. Performed By: #### M 100.2200 #### [facility] [address] [place], [address] Comprehensive Metabolic Prof ilon 12-12-2023 Albumin [Mass/Vol] 3.8 g/dL Normal 3.2-5.0 [facility] Comment on above: Performed By: #### M 100.2200 #### [facility] [address] [place], [address] Albumin/Globulin [Mass ratio] 0.9 {ratio} Normal 0.9-2.4 [facility] Comment on above: Performed By: #### M 100.2200 #### [facility] [address] [place], [address] ALK P 90 U/L Normal 45-117 [facility] Comment on above: Performed By: #### M 100.2200 #### [facility] [address] [place], [address] ALT [Catalytic activity/Vol] 22 U/L Normal 13-56 [facility] Comment on above: Performed By: #### M 100.2200 #### [facility] [address] [place], [address] AST [Catalytic activity/Vol] 21 U/L Normal 15-37 [facility] Comment on above: Performed By: #### M 100.2200 #### [facility] [address] [place], [address] Bilirubin [Mass/Vol] 0.90 mg/dL Normal 0.20-1.00 [facility] Comment on above: Result Comment: For patients on eltrombopag therapy, use of Dimension [place] TBIL is not recommended. Performed By: #### M 100.2200 #### [facility] [address] [place], [address] BUN/CRE 12.5 RATIO Normal 10-20 [facility] Comment on above: Performed By: #### M 100.2200 #### [facility] [address] [place], [address] CA,Total 9.1 mg/dL Normal 8.5-10.1 [facility] Comment on above: Performed By: #### M 100.2200 #### [facility] [address] [place], [address] Chloride [Moles/Vol] 103 mmol/L Normal 98-107 [facility] Comment on above: Performed By: #### M 100.2200 #### [facility] [address] [place], [address] CO2 [Moles/Vol] 30.0 mmol/L Normal 21.0-32.0 [facility] Comment on above: Performed By: #### M 100.2200 #### [facility] [address] [place], [address] Creatinine [Mass/Vol] 0.96 mg/dL Normal 0.55-1.02 [facility] Comment on above: Result Comment: The validity of the calculated GFR GFRAA in patients over 70 years has not been determined. Clinical correlation is essential. Performed By: #### M 100.2200 #### [facility] [address] [place], [address] EST GFR - AA 72 mL/min Normal >60 [facility] Comment on above: Result Comment: Afri can [place] GFR Calc Performed By: #### M 100.2200 #### [facility] [address] [place], [address] GAP 7 Normal 5-15 [facility] Comment on above: Performed By: #### M 100.2200 #### [facility] [address] [place], [address] GFR/1.73 sq M.predicted among non-blacks MDRD (S/P/Bld) [Vol rate/Area] 60 mL/min/{1.73_m2} Normal >60 [facility] Comment on above: Result Comment: Non- GFR Calc Performed By: #### M 100.2200 #### [facility] [address] [place], [address] Globulin (S) [Mass/Vol] 4.2 g/dL Normal 2.2-4.2 [facility] Comment on above: Performed By: #### M 100.2200 #### [facility] [address] [place], [address] Glucose [Mass/Vol] 99 mg/dL Normal 74-106 [facility] Comment on above: Performed By: #### M 100.2200 #### [facility] [address] [place], [address] Potassium [Moles/Vol] 3.6 mmol/L Normal 3.5-5.1 [facility] Comment on above: Performed By: #### M 100.2200 #### [facility] [address] [place], [address] Sodium [Moles/Vol] 140 mmol/L Normal 136-145 [facility] Comment on above: Performed By: #### M 100.2200 #### [facility] [address] [place], [address] T PROT 8.0 g/dL Normal 6.4-8.2 [facility] Comment on above: Performed By: #### M 100.2200 #### [facility] [address] [place], [address] Urea nitrogen [Mass/Vol] 12 mg/dL Normal 7-18 [facility] Comment on above: Performed By: #### M 100.2200 #### [facility] [address] [place], [address] Erythrocyte Sed Rateon 12-11 SED RATE 12 mm/hr Normal 0-30 [facility] Comment on above: Performed By: #### M 100.2200 #### [facility] [address] [place], [address] Free T3on 12-12-2023 Free T3 [Mass/Vol] 2.2 pg/mL Normal 2.18-3.98 [facility] Comment on above: Performed By: #### M 100.2200 #### [facility] [address] [place], [address] Rheumatoid Factoron 12-12-19 24 RHEUMATOID FAC < 10.0 Normal <15 [facility] Comment on above: Performed By: #### L 501.9520, L500.4050, L100.0100 #### [facility] [address] [place], [address] T4 Free Directon 12-12-2023 T4 FREE DIRECT 1.32 ng/dL Normal 0.76-1.46 [facility] Comment on above: Performed By: #### L 501.9520, L500.4050, L100.0100 #### [facility] [address] [place], [address] Thyroid Stim Hormone (TSH)on 12-12-2023 TSH 1.710 uIU/mL Normal 0.358-3.740 [facility] Comment on above: Performed By: #### M 100.2200 #### [facility] [address] [place], [address] Vitamin D,25 Hydroxyon 12-11 Vitamin D 25-OH 29.4 ng/mL Normal [facility] Comment on above: Result Comment: Ana min D 25(OH) Status Range Deficiency <20 ng/mL (50nmol/L) Insufficiency 20 - 30 ng/mL (50 - 75 nmol/L) Sufficiency 30 - 100 ng/mL (75 - 250 nmol/L) Toxicity >100 ng/mL (>250 nmol/L) Performed By: #### M 100.2200 #### [facility] [address] [place], [address] Absolute lymphocyte countOrd ered By: Vernon Osman on 05-21-2023 Lymphocytes Auto (Unsp spec) [#/Vol] 1.08 10*3/uL 0.83-4.51 [facility] Automated lymphocyte count a s percentage of total leukocytesOrdered By: Vernon Osman on 05-21-2023 Lymphocytes/100 WBC Auto (Unsp spec) 8.5 % 19-41 [facility] Basophil percentageOrdered B y: Vernon Osman on 05-21-2023 Basophils/100 WBC (Bld) 0.6 % 0-1 [facility] Chloride [Moles/Vol] 112 mmol/L 98-107 [facility] Eosinophils/100 WBC (Bld) 2.0 % 0-5 [facility] Glucose [Mass/Vol] 136 mg/dL 74-106 [facility] Comment on above: Fasting Glucose resu lt greater than or equal to 126 mg/dL suggests DIABETES MELLITUS per A.D.A. criteria. Hemoglobin (Bld) [Mass/Vol] 10.3 g/dL 12.0-15.0 [facility] Monocytes/100 WBC (Bld) 9.4 % 0-10 [facility] Neutrophils (Bld) [#/Vol] 10.0 10*3/uL 2.0-7.7 [facility] Neutrophils/100 WBC (Bld) 79.0 % 47-70 [facility] Potassium [Moles/Vol] 3.4 mmol/L 3.5-5.1 [facility] Sodium [Moles/Vol] 142 mmol/L 136-145 [facility] WBC (Bld) [#/Vol] 12.7 10*3/uL 4.4-11.0 [facility] Determination of erythrocyte mean corpuscular volume (MCV)Ordered By: Vernon Osman on 05-21-2023 MCV (RBC) [Entitic vol] 99.1 fL 81-99 [facility] Erythrocyte distribution wid th ratioOrdered By: Vernon Osman on 05-21-2023 Erythrocyte distribution width (RBC) [Ratio] 15.1 % 11.6-14.6 [facility] Erythrocyte distribution wid th standard deviationOrdered By: Vernon Osman on 05-21-2023 Erythrocyte distribution width (RBC) [Entitic vol] 54.6 fL 35.1-43.9 [facility] Hematocrit Auto (Bld) [Volum e fraction]Ordered By: Vernon Osman on 05-21-2023 Hematocrit (Bld) [Volume fraction] 32.2 % 37-47 [facility] Immature granulocytes/100 WB C Auto (Bld)Ordered By: Vernon Osman on 05-21-2023 Immature granulocytes/100 WBC (Bld) 0.500 % 0.0-0.9 [facility] Comment on above: IG% - Immature Granu locytes (promyelocytes, myelocytes and metamyelocytes) > 1% indicates that a LEFT SHIFT is Present. Laboratory - Chemistry and C hemistry - challengeOrdered By: Vernon Osman on 05-21-2023 CO2 [Moles/Vol] 25.0 mmol/L 21.0-32.0 [facility] Urea nitrogen/Creatinine [Mass ratio] 9.1 mg/mg 10-20 [facility] - Hematology and Cell countsOrdered By: Vernon Osman on 05-21-2023 MCH (RBC) [Entitic mass] 31.7 pg 27.0-32.0 [facility] MCHC (RBC) [Mass/Vol] 32.0 g/dL 32-36 [facility] Nucleated RBC/100 WBC (Bld) [Ratio] 0 % 0-5 [facility] Platelets (Bld) [#/Vol] 218 10*3/uL 150-450 [facility] No Panel InformationOrdered By: Vernon Osman on 05-21-2023 Estimated Creatinine Clearance Calc 61.89 ml/min [facility] Estimated GFR (MDRD) Amer 94 mL/min >60 [facility] Comment on above: GFR Calc Estimated GFR (MDRD) Non-Af Amer 78 mL/min >60 [facility] Comment on above: Non- GFR Calc Platelet mean volume Cayden-Ec ker (Bld) [Entitic vol]Ordered By: Vernon Osman on 05-21-2023 Platelet mean volume (Bld) [Entitic vol] 11.8 fL 6.2-12.0 [facility] RBC Auto (Bld) [#/Vol]Ordere d By: Vernon Osman on 05-21-2023 RBC (Bld) [#/Vol] 3.25 10*6/uL 4.2-5.4 [facility] Serum or plasma calcium rajni urement (mass/volume)Ordered By: Vernon Osman on 05-21-2023 Calcium [Mass/Vol] 8.0 mg/dL 8.5-10.1 [facility] Serum or plasma creatinine m easurement (mass/volume)Ordered By: Vernon Osman on 05-21-2023 Creatinine [Mass/Vol] 0.77 mg/dL 0.55-1.02 [facility] Comment on above: The validity of the calculated GFR & GFRAA in patients over 70 years has not been determined. Clinical correlation is essential. Serum or plasma urea nitroge n measurement (mass/volume)Ordered By: Vrenon Osman on 05-21-2023 Urea nitrogen [Mass/Vol] 7 mg/dL 7-18 [facility] Thin prep Papanicolaou smear with manual screeningOrdered By: Vernon Osman on 05-21-2023 Thin prep Papanicolaou smear with manual screening 5 5-15 [facility] Basophil percentageOrdered B y: Vernon Osman on 05-20-2023 Basophil percentage 3.2 mg/dL 2.5-4.9 [facility] Blood manual differential co mment interpretation (narrative result)Ordered By: Vernon Osman on 05-20-2023 Manual differential comment Donnie (Bld) [Interp] SCANNED [facility] Comment on above: MONOCYTOSIS PRESENT Laboratory - Chemistry and C hemistry - challengeOrdered By: Vernon Osman on 05-20-2023 Magnesium [Mass/Vol] 2.2 mg/dL 1.6-2.6 [facility] Review by pathologistOrdered By: Vernon Osman on 05-20-2023 Pathologist review Donnie (Unsp spec) [Interp] Reviewed [facility] Comment on above: Previous reported re sult: Nohelia mcdowell Edited by: RGOOD on 05/20/23:1306Neutrophilic leukocytosis.Macrocytic anemia.Clinical correlation necessary.Greg Guerin M.D. 05/20/23 AMENDED REPORT 05/20/23 1306 PATH REV previously reported as: Nohelia mcdowell Basophil percentageOrdered B y: Aggie White on 05-19-2023 Bilirubin [Mass/Vol] 0.70 mg/dL 0.20-1.00 [facility] Comment on above: For patients on eltr ombopag therapy, use of Dimension [place] TBIL is not recommended. Protein [Mass/Vol] 6.4 g/dL 6.4-8.2 [facility] Basophil percentageOrdered B y: Jorge Cardona on 05-19-2023 Basophil percentage < 10.0 ug/mL 10.0-30.0 [facility] Culture, urineOrdered By: Sonja Cardona on 05-19-2023 Bacteria identified Cx Nom (U) Presumptive E. coli [facility] - Chemistry and C hemistry - challengeOrdered By: Aggie Bolton on 05-19-2023 Albumin/Globulin [Mass ratio] 0.7 {ratio} 0.9-2.4 [facility] ALP [Catalytic activity/Vol] 94 U/L 45-117 [facility] ALT [Catalytic activity/Vol] 15 U/L 13-56 [facility] Globulin (S) [Mass/Vol] 3.8 g/dL 2.2-4.2 [facility] No Panel InformationOrdered By: Jorge Cardona on 05-19-2023 Ethyl Alcohol Level < 3.0 mg/dL [facility] Comment on above: The serum:whole bloo d ethanol ratio is approximately 1.14and varies slightly with hematocrit. Medical Alcohol reference interval and critical value innon-tolerant individuals; 50 - 100 Impairment 100 Intoxication 100 - 250 Severe Poisoning 250 - 400 Deep/possible fatal coma No Panel InformationOrdered By: Aggie Bolton on 05-19-2023 Streptococcus pneumoniae Antigen (M [facility] Thin prep Papanicolaou smear with manual screeningOrdered By: Aggie Bolton on 05-19-2023 Thin prep Papanicolaou smear with manual screening 2.6 g/dL 3.2-5.0 [facility] Thin prep Papanicolaou smear with manual screening 19 U/L 15-37 [facility] Urine Legionella pneumophila antigen detectionOrdered By: Aggie Bolton on 05-19-2023 L. pneumophila Ag Ql (U) [facility] Absolute lymphocyte countOrd ered By: Jorge Cardona on 05-18-2023 Lymphocytes Auto (Unsp spec) [#/Vol] 0.96 10*3/uL 0.83-4.51 [facility] Activated partial thrombopla stin time (aPTT) in platelet poor plasma by coagulation aOrdered By: Jorge Cardona on 05-18-2023 aPTT Coag (PPP) [Time] 30.3 s 24.1-36.2 [facility] Automated lymphocyte count a s percentage of total leukocytesOrdered By: Jorge Cardona on 05-18-2023 Lymphocytes/100 WBC Auto (Unsp spec) 6.3 % 19-41 [facility] Basophil percentageOrdered B y: Jorge Cardona on 05-18-2023 Basophil percentage >100 SEEN /hpf 0-5 [facility] Basophils/100 WBC (Bld) 0.5 % 0-1 [facility] Bilirubin [Mass/Vol] 1.40 mg/dL 0.20-1.00 [facility] Comment on above: For patients on eltr ombopag therapy, use of Dimension [place] TBIL is not recommended. Chloride [Moles/Vol] 109 mmol/L 98-107 [facility] Eosinophils/100 WBC (Bld) 0.3 % 0-5 [facility] Glucose [Mass/Vol] 134 mg/dL 74-106 [facility] Comment on above: Fasting Glucose resu lt greater than or equal to 126 mg/dL suggests DIABETES MELLITUS per A.D.A. criteria. Hemoglobin (Bld) [Mass/Vol] 11.9 g/dL 12.0-15.0 [facility] Lactate [Moles/Vol] 1.7 mmol/L 0.4-2.0 [facility] Monocytes/100 WBC (Bld) 2.4 % 0-10 [facility] Neutrophils (Bld) [#/Vol] 13.7 10*3/uL 2.0-7.7 [facility] Neutrophils/100 WBC (Bld) 89.8 % 47-70 [facility] Potassium [Moles/Vol] 3.8 mmol/L 3.5-5.1 [facility] Comment on above: Slight Hemolysis, Re sult may be falsely increased. Protein [Mass/Vol] 7.5 g/dL 6.4-8.2 [facility] Sodium [Moles/Vol] 139 mmol/L 136-145 [facility] WBC (Bld) [#/Vol] 15.2 10*3/uL 4.4-11.0 [facility] Bilirubin Test strip Ql (U)O rdered By: Jorge Cardona on 05-18-2023 Bilirubin Ql (U) Negative Negative [facility] Determination of erythrocyte mean corpuscular volume (MCV)Ordered By: Jorge Cardona on 05-18-2023 MCV (RBC) [Entitic vol] 97.9 fL 81-99 [facility] Erythrocyte distribution wid th ratioOrdered By: Jorge Cardona on 05-18-2023 Erythrocyte distribution width (RBC) [Ratio] 15.1 % 11.6-14.6 [facility] Erythrocyte distribution wid th standard deviationOrdered By: Jorgemel Cardona on 05-18-2023 Erythrocyte distribution width (RBC) [Entitic vol] 54.4 fL 35.1-43.9 [facility] Hematocrit Auto (Bld) [Volum e fraction]Ordered By: Jorge Cardona on 05-18-2023 Hematocrit (Bld) [Volume fraction] 36.7 % 37-47 [facility] Immature granulocytes/100 WB C Auto (Bld)Ordered By: Jorgemel Cardona on 05-18-2023 Immature granulocytes/100 WBC (Bld) 0.700 % 0.0-0.9 [facility] Comment on above: IG% - Immature Granu locytes (promyelocytes, myelocytes and metamyelocytes) > 1% indicates that a LEFT SHIFT is Present. International normalized rat io (INR) calculationOrdered By: Jorge Cardona on 05-18-2023 INR Coag (PPP) [Relative time] 1.3 {INR} [facility] Ketones Test strip Ql (U)Ord ered By: Jorge Cardona on 05-18-2023 Ketones Ql (U) 5 mg/dl Negative [facility] - Chemistry and C hemistry - challengeOrdered By: Jorgemel Cardona on 05-18-2023 Albumin/Globulin [Mass ratio] 0.7 {ratio} 0.9-2.4 [facility] ALP [Catalytic activity/Vol] 116 U/L 45-117 [facility] ALT [Catalytic activity/Vol] 17 U/L 13-56 [facility] CO2 [Moles/Vol] 24.0 mmol/L 21.0-32.0 [facility] Globulin (S) [Mass/Vol] 4.3 g/dL 2.2-4.2 [facility] Urea nitrogen/Creatinine [Mass ratio] 18.9 mg/mg 10-20 [facility] - CoagulationOrde red By: Jorge Cardona on 05-18-2023 PT Coag (PPP) [Time] 16.0 s 11.7-14.9 [facility] - Drug toxicology Ordered By: Jorge Cardona on 05-18-2023 Amphetamines Ql (U) Negative <1000 ng/mL [facility] Benzodiazepines Ql (U) Negative < 200 ng/mL [facility] Cannabinoids Screen Ql (U) Negative < 50 ng/mL [facility] Cocaine Ql (U) Negative < 300 ng/mL [facility] Opiates Ql (U) Positive < 300 ng/mL [facility] - Hematology and Cell countsOrdered By: Jorge Cardona on 05-18-2023 MCH (RBC) [Entitic mass] 31.7 pg 27.0-32.0 [facility] MCHC (RBC) [Mass/Vol] 32.4 g/dL 32-36 [facility] Nucleated RBC/100 WBC (Bld) [Ratio] 0 % 0-5 [facility] Platelets (Bld) [#/Vol] 199 10*3/uL 150-450 [facility] - Microbiology an d Antimicrobial susceptibilityOrdered By: Jorge Cardona on 05-18-2023 Bacteria identified Cx Nom (Bld) Escherichia coli [facility] SARS-CoV-2 (COVID-19) RNA LEONA+probe Ql (Unsp spec) [facility] Bacteria identified Cx Nom (Bld) No growth in 5 days. [facility] SARS-CoV-2 (COVID-19) RNA LEONA+probe Ql (Unsp spec) [facility] Mucus LM Ql (Urine sed)Order ed By: Jorge Cardona on 05-18-2023 Mucus Ql (Urine sed) 0 SEEN /hpf [facility] Nitrite Test strip Ql (U)Ord ered By: Jorge Cardona on 05-18-2023 Nitrite Ql (U) Positive Negative [facility] No Panel InformationOrdered By: Jorge Cardona on 05-18-2023 Estimated Creatinine Clearance Calc 40.12 ml/min [facility] Estimated GFR (MDRD) Amer 55 mL/min >60 [facility] Comment on above: GFR Calc Estimated GFR (MDRD) Non-Af Amer 46 mL/min >60 [facility] Comment on above: Non- GFR Calc MDMA (Ecstasy) Screen Negative < 500 ng/mL [facility] Urine Barbiturates Screen Negative < 200 ng/mL [facility] Urine Drug Screen Comment [facility] Comment on above: CONFIRMATORY TESTING FOR [...] Methadone Screen Negative < 300 ng/mL [facility] Urine RBC 10-25 SEEN /hpf 0-5 [facility] Platelet mean volume Cayden-Ec ker (Bld) [Entitic vol]Ordered By: Jorge Cardona on 05-18-2023 Platelet mean volume (Bld) [Entitic vol] 12.5 fL 6.2-12.0 [facility] Protein Test strip Ql (U)Ord ered By: Jorge Cardona on 05-18-2023 Protein Ql (U) 100 mg/dl Negative [facility] RBC Auto (Bld) [#/Vol]Ordere d By: Jorge Cardona on 05-18-2023 RBC (Bld) [#/Vol] 3.75 10*6/uL 4.2-5.4 [facility] Serum or plasma calcium rajni urement (mass/volume)Ordered By: Jorge Cardona on 05-18-2023 Calcium [Mass/Vol] 8.6 mg/dL 8.5-10.1 [facility] Serum or plasma creatinine m easurement (mass/volume)Ordered By: Jorge Cardona on 05-18-2023 Creatinine [Mass/Vol] 1.22 mg/dL 0.55-1.02 [facility] Comment on above: The validity of the calculated GFR & GFRAA in patients over 70 years has not been determined. Clinical correlation is essential. Serum or plasma urea nitroge n measurement (mass/volume)Ordered By: Jorge Cardona on 05-18-2023 Urea nitrogen [Mass/Vol] 23 mg/dL 7-18 [facility] Squamous epithelial cells de tection in urine sediment by light microscopyOrdered By: Jorge Cardona on 05-18-2023 Epithelial cells.squamous LM Ql (Urine sed) 0 SEEN /hpf 5-10 [facility] Thin prep Papanicolaou smear with manual screeningOrdered By: Jorge Cadrona on 05-18-2023 Thin prep Papanicolaou smear with manual screening 3.2 g/dL 3.2-5.0 [facility] Thin prep Papanicolaou smear with manual screening 22 U/L 15-37 [facility] Comment on above: Slight Hemolysis, Re sult may be falsely increased. Thin prep Papanicolaou smear with manual screening 6 5-15 [facility] Urine blood detectionOrdered By: Jorge Cardona on 05-18-2023 RBC Ql (U) 50 /ul Negative [facility] Urine clarityOrdered By: Jorge Cardona on 05-18-2023 Clarity (U) Cloudy Clear [facility] Urine color determinationOrd ered By: Jorge Cardona on 05-18-2023 Color (U) Yellow Yellow [facility] Urine glucose detectionOrder ed By: Jorge Cardona on 05-18-2023 Glucose Ql (U) Normal mg/dl Normal [facility] Urine leukocyte esterase det ection by dipstickOrdered By: Jorge Cardona on 05-18-2023 Leukocyte esterase Test strip Ql (U) 500 /ul Negative [facility] Urine pHOrdered By: Jorge nguyen on 05-18-2023 pH (U) 6.0 [pH] 5.0 - 8.0 [facility] Urine phencyclidine (PCP) de tectionOrdered By: Jorge Cardona on 05-18-2023 Phencyclidine Ql (U) Negative < 25 ng/mL [facility] Urine sediment bacteria coun t by microscopy (number/high power field)Ordered By: Jorge Cardona on 05-18-2023 Bacteria LM.HPF (Urine sed) [#/Area] 0 /[HPF] None Seen [facility] Urine specific gravity measu rementOrdered By: Jorgemel Cardona on 05-18-2023 Specific gravity (U) [Rel density] 1.010 1.002-1.030 [facility] Urine urobilinogen measureme ntOrdered By: Jorgemel Cardona on 05-18-2023 Urobilinogen Ql (U) Normal mg/dl Normal [facility] Absolute lymphocyte countOrd ered By: Bandar Chanel on 11-23-2022 Lymphocytes Auto (Unsp spec) [#/Vol] 0.58 10*3/uL 0.83-4.51 [facility] Basophil percentageOrdered B y: Bandar Chanel on 11-23-2022 Basophils/100 WBC (Bld) 0.5 % 0-1 [facility] Chloride [Moles/Vol] 102 mmol/L 98-107 [facility] Eosinophils/100 WBC (Bld) 0.0 % 0-5 [facility] Glucose [Mass/Vol] 192 mg/dL 74-106 [facility] Comment on above: Fasting Glucose resu lt greater than or equal to 126 mg/dL suggests DIABETES MELLITUS per A.D.A. criteria. Neutrophils (Bld) [#/Vol] 6.0 10*3/uL 2.0-7.7 [facility] Neutrophils/100 WBC (Bld) 89.4 % 47-70 [facility] Potassium [Moles/Vol] 3.3 mmol/L 3.5-5.1 [facility] Sodium [Moles/Vol] 134 mmol/L 136-145 [facility] WBC (Bld) [#/Vol] 6.7 10*3/uL 4.4-11.0 [facility] Blood erythrocytes count (nu mber/volume)Ordered By: Bandar Chanel on 11-23-2022 RBC (Bld) [#/Vol] 4.22 10*6/uL 4.2-5.4 [facility] Blood hemoglobin measurement (mass/volume)Ordered By: Bandar Chanel on 11-23-2022 Hemoglobin (Bld) [Mass/Vol] 12.0 g/dL 12.0-15.0 [facility] Blood lymphocytes/100 leukoc ytesOrdered By: Bandar Chanel on 11-23-2022 Lymphocytes/100 WBC (Bld) 8.7 % 19-41 [facility] Blood manual differential co mment interpretation (narrative result)Ordered By: Bandar Chanel on 11-23-2022 Manual differential comment Donnie (Bld) [Interp] SCANNED [facility] Comment on above: LYMPHOPENIA PRESENT Blood monocytes/100 leukocyt esOrdered By: Bandar Chanel on 11-23-2022 Monocytes/100 WBC (Bld) 1.1 % 0-10 [facility] Blood platelet mean volumeOr dered By: Bandar Chanel on 11-23-2022 Platelet mean volume (Bld) [Entitic vol] 12.1 fL 6.2-12.0 [facility] CNPNon 11-23-2022 [facility] Telephone ([facility]) AIDEN FIELDS ([id number]) 1945 F Date Time Provider Department 11/23/22 [facility] GALLEGOS [facility] During your visit today, we recorded the following information about you: Wu Gallegos APRN.FELY 11/23/2022 7:32 AM Signed Please notify that covid testing negative. Continue with plan of care as discussed during visit. Christie rCuz LPN 11/23/2022 7:53 AM Signed Phone call placed brief message to contact a nurse to review results. Melissa De Paz LPN, LPN 11/23/2022 6:42 PM Signed Patient notified.Melissa Sprague LPN Allergies As of Date: 11/23/2022 Noted Allergy Reaction ANTIHISTAMINES - ALKYLAMINE 10/07/2007 5 - Intolerance Comments: wires her BENADRYL (DIPHENHYDRAMINE HCL) 10/27/2012 Comments: rapid heart beat/gets real excitable NEOSPORIN ([id number] *08/14/2006 Comments: contact dermatitis post op Date Reviewed: 11/22/2022 Reviewed by: Eliel Blount APRN.KILN PACKER - Fully Assessed Reason for Visit: Results [...] [F41.1] 05/24/2015 (more content not included)... Normal [facility] Determination of erythrocyte mean corpuscular volume (MCV)Ordered By: Bandar Chanel on 11-23-2022 MCV (RBC) [Entitic vol] 90.0 fL 81-99 [facility] Hematocrit Auto (Bld) [Volum e fraction]Ordered By: Bandar Chanel on 11-23-2022 Hematocrit (Bld) [Volume fraction] 38.0 % 37-47 [facility] - Chemistry and C hemistry - challengeOrdered By: Bandar Chanel on 11-23-2022 CO2 [Moles/Vol] 26.0 mmol/L 21.0-32.0 [facility] Free T4 [Mass/Vol] 1.40 ng/dL 0.76-1.46 [facility] Urea nitrogen/Creatinine [Mass ratio] 22.8 mg/mg 10-20 [facility] - Hematology and Cell countsOrdered By: Bandar Chanel on 11-23-2022 Erythrocyte distribution width (RBC) [Entitic vol] 54.4 fL 35.1-43.9 [facility] Erythrocyte distribution width (RBC) [Ratio] 16.4 % 11.6-14.6 [facility] Immature granulocytes/100 WBC (Bld) 0.300 % 0.0-0.9 [facility] Comment on above: IG% - Immature Granu locytes (promyelocytes, myelocytes and metamyelocytes) > 1% indicates that a LEFT SHIFT is Present. MCH (RBC) [Entitic mass] 28.4 pg 27.0-32.0 [facility] Nucleated RBC/100 WBC (Bld) [Ratio] 0 % 0-5 [facility] MCHC Auto (RBC) [Mass/Vol]Or dered By: Bandar Chanel on 11-23-2022 MCHC (RBC) [Mass/Vol] 31.6 g/dL 32-36 [facility] No Panel InformationOrdered By: Bandar Chanel on 11-23-2022 Estimated Creatinine Clearance Calc 44.80 ml/min [facility] Estimated GFR (MDRD) Amer 133 mL/min >60 [facility] Comment on above: GFR Calc Estimated GFR (MDRD) Non-Af Amer 110 mL/min >60 [facility] Comment on above: Non- GFR Calc Thyroid Stimulating Hormone (TSH) 0.24 uIU/mL 0.358-3.74 [facility] Platelets bldOrdered By: Anthony Chanel on 11-23-2022 Platelets (Bld) [#/Vol] 281 10*3/uL 150-450 [facility] Serum or plasma calcium rajni urement (mass/volume)Ordered By: Bandar Chanel on 11-23-2022 Calcium [Mass/Vol] 8.1 mg/dL 8.5-10.1 [facility] Serum or plasma creatinine m easurement (mass/volume)Ordered By: Bandar Chanel on 11-23-2022 Creatinine [Mass/Vol] 0.57 mg/dL 0.55-1.02 [facility] Comment on above: The validity of the calculated GFR & GFRAA in patients over 70 years has not been determined. Clinical correlation is essential. Serum or plasma urea nitroge n measurement (mass/volume)Ordered By: Bandar Chanel on 11-23-2022 Urea nitrogen [Mass/Vol] 13 mg/dL 7-18 [facility] Thin prep Papanicolaou smear with manual screeningOrdered By: Bandar Chanel on 11-23-2022 Thin prep Papanicolaou smear with manual screening 6 5-15 [facility] Absolute lymphocyte countOrd ered By: Katie Randle on 11-22-2022 Lymphocytes Auto (Unsp spec) [#/Vol] 1.44 10*3/uL 0.83-4.51 [facility] Basophil percentageOrdered B y: Katie Randle on 11-22-2022 Basophils/100 WBC (Bld) 0.7 % 0-1 [facility] Chloride [Moles/Vol] 102 mmol/L 98-107 [facility] Eosinophils/100 WBC (Bld) 6.7 % 0-5 [facility] Glucose [Mass/Vol] 82 mg/dL 74-106 [facility] Neutrophils (Bld) [#/Vol] 6.1 10*3/uL 2.0-7.7 [facility] Neutrophils/100 WBC (Bld) 64.5 % 47-70 [facility] Potassium [Moles/Vol] 4.1 mmol/L 3.5-5.1 [facility] Sodium [Moles/Vol] 137 mmol/L 136-145 [facility] WBC (Bld) [#/Vol] 9.4 10*3/uL 4.4-11.0 [facility] Blood erythrocytes count (nu mber/volume)Ordered By: Katie Randle on 11-22-2022 RBC (Bld) [#/Vol] 3.81 10*6/uL 4.2-5.4 [facility] Blood hemoglobin measurement (mass/volume)Ordered By: Katie Randle on 11-22-2022 Hemoglobin (Bld) [Mass/Vol] 11.0 g/dL 12.0-15.0 [facility] Blood lymphocytes/100 leukoc ytesOrdered By: Katie Randle on 11-22-2022 Lymphocytes/100 WBC (Bld) 15.4 % 19-41 [facility] Blood monocytes/100 leukocyt esOrdered By: Katie Randle on 11-22-2022 Monocytes/100 WBC (Bld) 12.3 % 0-10 [facility] Blood platelet mean volumeOr dered By: Katie Randle on 11-22-2022 Platelet mean volume (Bld) [Entitic vol] 11.8 fL 6.2-12.0 [facility] CNOVon 11-22-2022 CNOV Office Visit (UCTR ) AIDEN FIELDS ([id number]) 1945 F Date Time Provider Department 11/22/22 11:45 AM ELIEL BLOUNT [facility] During your visit today, we recorded the following information about you: Temperature Pulse Respiration Blood pressure 99.6 degrees 85/minute 18/minute 110/64 Weight 68 kg Eliel Blount, RIO.KILN PACKER 11/22/2022 12:42 PM Signed Subjective HPI Nontoxic-appearing [...] - Alkylamine, Benadryl [Diphenhydramine Hcl], and Neosporin [Sinhsvdj-Fdodwljxgs-Rl lymyxin] MEDICATIONS oxyCODONE IR (ROXICODONE) 5 mg [...] and azam (more content not included)... Normal [facility] COVID-19 virus antigen assay Ordered By: Katie Randle on 11-22-2022 SARS-CoV-2 (COVID-19) Ag IA.rapid Ql (Resp) [facility] Determination of erythrocyte mean corpuscular volume (MCV)Ordered By: Katie Randle on 11-22-2022 MCV (RBC) [Entitic vol] 92.1 fL 81-99 [facility] Hematocrit Auto (Bld) [Volum e fraction]Ordered By: Katie Randle on 11-22-2022 Hematocrit (Bld) [Volume fraction] 35.1 % 37-47 [facility] - Chemistry and C hemistry - challengeOrdered By: Katie Randle on 11-22-2022 CO2 [Moles/Vol] 32.0 mmol/L 21.0-32.0 [facility] Natriuretic peptide B (Bld) [Mass/Vol] 198.9 pg/mL 0-100 [facility] Urea nitrogen/Creatinine [Mass ratio] 27.9 mg/mg 10-20 [facility] - Hematology and Cell countsOrdered By: Katie Randle on 11-22-2022 Erythrocyte distribution width (RBC) [Entitic vol] 56.1 fL 35.1-43.9 [facility] Erythrocyte distribution width (RBC) [Ratio] 16.7 % 11.6-14.6 [facility] Immature granulocytes/100 WBC (Bld) 0.400 % 0.0-0.9 [facility] Comment on above: IG% - Immature Granu locytes (promyelocytes, myelocytes and metamyelocytes) > 1% indicates that a LEFT SHIFT is Present. MCH (RBC) [Entitic mass] 28.9 pg 27.0-32.0 [facility] Nucleated RBC/100 WBC (Bld) [Ratio] 0 % 0-5 [facility] MCHC Auto (RBC) [Mass/Vol]Or dered By: Katie Radnle on 11-22-2022 MCHC (RBC) [Mass/Vol] 31.3 g/dL 32-36 [facility] No Panel InformationOrdered By: Katie aRndle on 11-22-2022 Estimated Creatinine Clearance Calc 44.80 ml/min [facility] Estimated GFR (MDRD) Amer 132 mL/min >60 [facility] Comment on above: GFR Calc Estimated GFR (MDRD) Non-Af Amer 109 mL/min >60 [facility] Comment on above: Non- GFR Calc Troponin I High Sensitivity 7 pg/mL 3.0-54.0 [facility] Comment on above: Please Note: New [place] t Units and Gender Specific Reference Ranges. For more information see Policy Stat Procedure [place] High Sensitivity Troponin (TNIH) and attachments. Platelets bldOrdered By: Amy Randle on 11-22-2022 Platelets (Bld) [#/Vol] 247 10*3/uL 150-450 [facility] Respiratory pathogens DNA an d RNA panel LEONA+probe (Resp)Ordered By: Bandar Chanel on 11-22-2022 Respiratory Panel (PCR) Rhinovirus [facility] SARS-CoV-2 RNA Resp Ql LEONA+p robeon 11-22-2022 SARS-CoV-2 (COVID-19) RNA LEONA+probe Ql (Resp) COVID 19 RESULT: Not detected The method used is RT-PCR or an equivalent NAAT method. Reference Range (the expected result in uninfected individuals): Not detected Normal [facility] Comment on above: Performed By: #### [id number] #### [facility] CLIA [id number] [address] [place] [address] [place] Serum or plasma calcium rajni urement (mass/volume)Ordered By: Katie Randle on 11-22-2022 Calcium [Mass/Vol] 8.3 mg/dL 8.5-10.1 [facility] Serum or plasma creatinine m easurement (mass/volume)Ordered By: Katie Randle on 11-22-2022 Creatinine [Mass/Vol] 0.57 mg/dL 0.55-1.02 [facility] Comment on above: The validity of the calculated GFR & GFRAA in patients over 70 years has not been determined. Clinical correlation is essential. Serum or plasma urea nitroge n measurement (mass/volume)Ordered By: Katie Randle on 11-22-2022 Urea nitrogen [Mass/Vol] 16 mg/dL 7-18 [facility] Thin prep Papanicolaou smear with manual screeningOrdered By: Katie Randle on 11-22-2022 Thin prep Papanicolaou smear with manual screening 3 5-15 [facility] XR CHEST 2V FRONTAL/LATon XR CHEST [...] thoracolumbar junction. IMPRESSION: No acute cardiopulmonary process. Radio Mechanic Helper: FILIBERTO Transcribe Date/Time: Nov 22 2022 12:17P Dictated by : SHEN ESQUIVEL MD This examination was interpreted and the report reviewed and electronically signed by: SHEN ESQUIVEL MD on Nov 22 2022 12:20PM EST [id number] Normal [facility] XR Chest PA and Lateralon IMPRESSION: No acute cardiopulmonary process. Radio Mechanic Helper: [facility] Transcribe Date/Time: Nov 22 2022 12:17P Dictated [...] junction. DIVISION OF RADIOLOGY Provider, [facility] - 11/22/2022 * * *Final Report* [...] junction. IMPRESSION IMPRESSION: No acute cardiopulmonary process. 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 XR Chest PA and LateralOrder ed By: [facility] Provider on 11-22-2022 [facility] - Chemistry and C hemistry - challengeOrdered By: Erica Richardson on 11-14-2022 Free T4 [Mass/Vol] 1.35 ng/dL 0.76-1.46 [facility] No Panel InformationOrdered By: Erica Richardson on 11-14-2022 Free Triiodothyronine (T3) pg/dL 2.2 pg/mL 2.18-3.98 [facility] Thyroid Stimulating Hormone (TSH) 0.75 uIU/mL 0.358-3.74 [facility] Absolute lymphocyte countOrd ered By: Dr. Richardson on 09-13-2022 Lymphocytes Auto (Unsp spec) [#/Vol] 1.36 10*3/uL 0.83-4.51 [facility] Basophil percentageOrdered B y: Dr. Richardson on 09-13-2022 Basophils/100 WBC (Bld) 1.0 % 0-1 [facility] Bilirubin [Mass/Vol] 0.50 mg/dL 0.20-1.00 [facility] Comment on above: For patients on eltr ombopag therapy, use of Dimension [place] TBIL is not recommended. Chloride [Moles/Vol] 101 mmol/L 98-107 [facility] Eosinophils/100 WBC (Bld) 5.7 % 0-5 [facility] Glucose [Mass/Vol] 94 mg/dL 74-106 [facility] Neutrophils (Bld) [#/Vol] 7.2 10*3/uL 2.0-7.7 [facility] Neutrophils/100 WBC (Bld) 70.2 % 47-70 [facility] Potassium [Moles/Vol] 4.4 mmol/L 3.5-5.1 [facility] Protein [Mass/Vol] 8.0 g/dL 6.4-8.2 [facility] Sodium [Moles/Vol] 137 mmol/L 136-145 [facility] WBC (Bld) [#/Vol] 10.3 10*3/uL 4.4-11.0 [facility] Blood erythrocytes count (nu mber/volume)Ordered By: Dr. Richardson on 09-13-2022 RBC (Bld) [#/Vol] 3.92 10*6/uL 4.2-5.4 [facility] Blood hemoglobin measurement (mass/volume)Ordered By: Dr. Richardson on 09-13-2022 Hemoglobin (Bld) [Mass/Vol] 12.5 g/dL 12.0-15.0 [facility] Blood lymphocytes/100 leukoc ytesOrdered By: Dr. Richardson on 09-13-2022 Lymphocytes/100 WBC (Bld) 13.2 % 19-41 [facility] Blood monocytes/100 leukocyt esOrdered By: Dr. Richardson on 09-13-2022 Monocytes/100 WBC (Bld) 9.5 % 0-10 [facility] Blood platelet mean volumeOr dered By: Dr. Richardson on 09-13-2022 Platelet mean volume (Bld) [Entitic vol] 11.6 fL 6.2-12.0 [facility] Determination of erythrocyte mean corpuscular volume (MCV)Ordered By: Dr. Richardson on 09-13-2022 MCV (RBC) [Entitic vol] 100.5 fL 81-99 [facility] Hematocrit Auto (Bld) [Volum e fraction]Ordered By: Dr. Richardson on 09-13-2022 Hematocrit (Bld) [Volume fraction] 39.4 % 37-47 [facility] Laboratory - Chemistry and C hemistry - challengeOrdered By: Dr. Richardson on 09-13-2022 ALP [Catalytic activity/Vol] 136 U/L 45-117 [facility] ALT [Catalytic activity/Vol] 23 U/L 13-56 [facility] CO2 [Moles/Vol] 28.0 mmol/L 21.0-32.0 [facility] Free T4 [Mass/Vol] 1.06 ng/dL 0.76-1.46 [facility] Globulin (S) [Mass/Vol] 4.2 g/dL 2.2-4.2 [facility] Urea nitrogen/Creatinine [Mass ratio] 32.9 mg/mg 10-20 [facility] Laboratory - Hematology and Cell countsOrdered By: Dr. Richardson on 09-13-2022 Erythrocyte distribution width (RBC) [Entitic vol] 48.6 fL 35.1-43.9 [facility] Erythrocyte distribution width (RBC) [Ratio] 13.1 % 11.6-14.6 [facility] Immature granulocytes/100 WBC (Bld) 0.400 % 0.0-0.9 [facility] Comment on above: IG% - Immature Granu locytes (promyelocytes, myelocytes and metamyelocytes) > 1% indicates that a LEFT SHIFT is Present. MCH (RBC) [Entitic mass] 31.9 pg 27.0-32.0 [facility] Nucleated RBC/100 WBC (Bld) [Ratio] 0 % 0-5 [facility] MCHC Auto (RBC) [Mass/Vol]Or dered By: Dr. Richardson on 09-13-2022 MCHC (RBC) [Mass/Vol] 31.7 g/dL 32-36 [facility] No Panel InformationOrdered By: Dr. Richardson on 09-13-2022 Estimated GFR (MDRD) Amer 111 mL/min >60 [facility] Comment on above: GFR Calc Estimated GFR (MDRD) Non-Af Amer 91 mL/min >60 [facility] Comment on above: Non- GFR Calc Free Triiodothyronine (T3) pg/dL 1.4 pg/mL 2.18-3.98 [facility] Thyroid Stimulating Hormone (TSH) 6.44 uIU/mL 0.358-3.74 [facility] Platelets bldOrdered By: Dr. Richardson on 09-13-2022 Platelets (Bld) [#/Vol] 335 10*3/uL 150-450 [facility] Serum or plasma albumin rajni urement (mass/volume)Ordered By: Dr. Richardson on 09-13-2022 Albumin [Mass/Vol] 3.8 g/dL 3.2-5.0 [facility] Serum or plasma albumin/glob ulin mass ratioOrdered By: Dr. Richardson on 09-13-2022 Albumin/Globulin [Mass ratio] 0.9 {ratio} 0.9-2.4 [facility] Serum or plasma calcium rajni urement (mass/volume)Ordered By: Dr. Richardson on 09-13-2022 Calcium [Mass/Vol] 8.3 mg/dL 8.5-10.1 [facility] Serum or plasma creatinine m easurement (mass/volume)Ordered By: Dr. Richardson on 09-13-2022 Creatinine [Mass/Vol] 0.67 mg/dL 0.55-1.02 [facility] Comment on above: The validity of the calculated GFR & GFRAA in patients over 70 years has not been determined. Clinical correlation is essential. Serum or plasma urea nitroge n measurement (mass/volume)Ordered By: Dr. Richardson on 09-13-2022 Urea nitrogen [Mass/Vol] 22 mg/dL 7-18 [facility] Serum or plasma uric acid me asurement (mass/volume)Ordered By: Dr. Richardson on 09-13-2022 Urate [Mass/Vol] 3.6 mg/dL 2.6-6.0 [facility] Comment on above: The drugs N-Acetylcy steine and Metamizole may falsely depress this assay. Thin prep Papanicolaou smear with manual screeningOrdered By: Dr. Richardson on 09-13-2022 Thin prep Papanicolaou smear with manual screening 20 U/L 15-37 [facility] Thin prep Papanicolaou smear with manual screening 8 5-15 [facility] Basophil percentageOrdered B y: Roberto Andre on 03-06-2022 Chloride [Moles/Vol] 102 mmol/L 98-107 [facility] Glucose [Mass/Vol] 90 mg/dL 74-106 [facility] Potassium [Moles/Vol] 4.0 mmol/L 3.5-5.1 [facility] Sodium [Moles/Vol] 137 mmol/L 136-145 [facility] WBC (Bld) [#/Vol] 5.7 10*3/uL 4.4-11.0 [facility] Blood erythrocytes count (nu mber/volume)Ordered By: Roberto Andre on 03-06-2022 RBC (Bld) [#/Vol] 4.05 10*6/uL 4.2-5.4 [facility] Blood hemoglobin measurement (mass/volume)Ordered By: Roberto Andre on 03-06-2022 Hemoglobin (Bld) [Mass/Vol] 12.0 g/dL 12.0-15.0 [facility] Blood platelet mean volumeOr dered By: Roberto Andre on 03-06-2022 Platelet mean volume (Bld) [Entitic vol] 12.7 fL 6.2-12.0 [facility] Determination of erythrocyte mean corpuscular volume (MCV)Ordered By: Roberto Andre on 03-06-2022 MCV (RBC) [Entitic vol] 91.9 fL 81-99 [facility] Hematocrit Auto (Bld) [Volum e fraction]Ordered By: Roberto Andre on 03-06-2022 Hematocrit (Bld) [Volume fraction] 37.2 % 37-47 [facility] Laboratory - Chemistry and C hemistry - challengeOrdered By: Roberto Andre on 03-06-2022 CO2 [Moles/Vol] 28.0 mmol/L 21.0-32.0 [facility] Urea nitrogen/Creatinine [Mass ratio] 15.9 mg/mg 10-20 [facility] Laboratory - Hematology and Cell countsOrdered By: Roberto Andre on 03-06-2022 Erythrocyte distribution width (RBC) [Entitic vol] 59.7 fL 35.1-43.9 [facility] Erythrocyte distribution width (RBC) [Ratio] 17.7 % 11.6-14.6 [facility] MCH (RBC) [Entitic mass] 29.6 pg 27.0-32.0 [facility] MCHC Auto (RBC) [Mass/Vol]Or dered By: Roberto Andre on 03-06-2022 MCHC (RBC) [Mass/Vol] 32.3 g/dL 32-36 [facility] No Panel InformationOrdered By: Roberto Andre on 03-06-2022 Estimated GFR (MDRD) Amer 134 mL/min >60 [facility] Comment on above: GFR Calc Estimated GFR (MDRD) Non-Af Amer 111 mL/min >60 [facility] Comment on above: Non- GFR Calc Platelets bldOrdered By: Wan Andre on 03-06-2022 Platelets (Bld) [#/Vol] 272 10*3/uL 150-450 [facility] Serum or plasma calcium rajni urement (mass/volume)Ordered By: Roberto Andre on 03-06-2022 Calcium [Mass/Vol] 9.0 mg/dL 8.5-10.1 [facility] Serum or plasma creatinine m easurement (mass/volume)Ordered By: Roberto Andre on 03-06-2022 Creatinine [Mass/Vol] 0.57 mg/dL 0.55-1.02 [facility] Comment on above: The validity of the calculated GFR & GFRAA in patients over 70 years has not been determined. Clinical correlation is essential. Serum or plasma urea nitroge n measurement (mass/volume)Ordered By: Roberto Andre on 03-06-2022 Urea nitrogen [Mass/Vol] 9 mg/dL 7-18 [facility] Thin prep Papanicolaou smear with manual screeningOrdered By: Roberto Andre on 03-06-2022 Thin prep Papanicolaou smear with manual screening 7 5-15 [facility] Basophil percentageOrdered B y: Roberto Andre on 02-27-2022 Chloride [Moles/Vol] 106 mmol/L 98-107 [facility] Glucose [Mass/Vol] 91 mg/dL 74-106 [facility] Potassium [Moles/Vol] 4.1 mmol/L 3.5-5.1 [facility] Sodium [Moles/Vol] 139 mmol/L 136-145 [facility] WBC (Bld) [#/Vol] 6.6 10*3/uL 4.4-11.0 [facility] Blood erythrocytes count (nu mber/volume)Ordered By: Roberto Andre on 02-27-2022 RBC (Bld) [#/Vol] 3.93 10*6/uL 4.2-5.4 [facility] Blood hemoglobin measurement (mass/volume)Ordered By: Roberto Andre on 02-27-2022 Hemoglobin (Bld) [Mass/Vol] 11.6 g/dL 12.0-15.0 [facility] Blood platelet mean volumeOr dered By: Roberto Andre on 02-27-2022 Platelet mean volume (Bld) [Entitic vol] 12.8 fL 6.2-12.0 [facility] Determination of erythrocyte mean corpuscular volume (MCV)Ordered By: Roberto Andre on 02-27-2022 MCV (RBC) [Entitic vol] 90.6 fL 81-99 [facility] Hematocrit Auto (Bld) [Volum e fraction]Ordered By: Roberto Andre on 02-27-2022 Hematocrit (Bld) [Volume fraction] 35.6 % 37-47 [facility] Laboratory - Chemistry and C hemistry - challengeOrdered By: Roberto Andre on 02-27-2022 CO2 [Moles/Vol] 28.0 mmol/L 21.0-32.0 [facility] Urea nitrogen/Creatinine [Mass ratio] 29.4 mg/mg 10-20 [facility] Laboratory - Hematology and Cell countsOrdered By: Roberto Andre on 02-27-2022 Erythrocyte distribution width (RBC) [Entitic vol] 63.4 fL 35.1-43.9 [facility] Erythrocyte distribution width (RBC) [Ratio] 19.1 % 11.6-14.6 [facility] MCH (RBC) [Entitic mass] 29.5 pg 27.0-32.0 [facility] MCHC Auto (RBC) [Mass/Vol]Or dered By: Roberto Andre on 02-27-2022 MCHC (RBC) [Mass/Vol] 32.6 g/dL 32-36 [facility] No Panel InformationOrdered By: Roberto Andre on 02-27-2022 Estimated GFR (MDRD) Amer 131 mL/min >60 [facility] Comment on above: GFR Calc Estimated GFR (MDRD) Non-Af Amer 108 mL/min >60 [facility] Comment on above: Non- GFR Calc Platelets bldOrdered By: Wan Andre on 02-27-2022 Platelets (Bld) [#/Vol] 275 10*3/uL 150-450 [facility] Serum or plasma calcium rajni urement (mass/volume)Ordered By: Roberto Andre on 02-27-2022 Calcium [Mass/Vol] 9.1 mg/dL 8.5-10.1 [facility] Serum or plasma creatinine m easurement (mass/volume)Ordered By: Roberto Andre on 02-27-2022 Creatinine [Mass/Vol] 0.58 mg/dL 0.55-1.02 [facility] Comment on above: The validity of the calculated GFR & GFRAA in patients over 70 years has not been determined. Clinical correlation is essential. Serum or plasma urea nitroge n measurement (mass/volume)Ordered By: Roberto Andre on 02-27-2022 Urea nitrogen [Mass/Vol] 17 mg/dL 7-18 [facility] Thin prep Papanicolaou smear with manual screeningOrdered By: Roberto Andre on 02-27-2022 Thin prep Papanicolaou smear with manual screening 5 5-15 [facility] Basophil percentageOrdered B y: Roberto Andre on 02-20-2022 Chloride [Moles/Vol] 100 mmol/L 98-107 [facility] Glucose [Mass/Vol] 89 mg/dL 74-106 [facility] Potassium [Moles/Vol] 3.9 mmol/L 3.5-5.1 [facility] Sodium [Moles/Vol] 136 mmol/L 136-145 [facility] WBC (Bld) [#/Vol] 6.6 10*3/uL 4.4-11.0 [facility] Blood erythrocytes count (nu mber/volume)Ordered By: Roberto Andre on 02-20-2022 RBC (Bld) [#/Vol] 4.21 10*6/uL 4.2-5.4 [facility] Blood hemoglobin measurement (mass/volume)Ordered By: Roberto Andre on 02-20-2022 Hemoglobin (Bld) [Mass/Vol] 12.3 g/dL 12.0-15.0 [facility] Blood manual differential co mment interpretation (narrative result)Ordered By: Roberto Andre on 02-20-2022 Manual differential comment Donnie (Bld) [Interp] See comment [facility] Comment on above: 1+ ANISOCYTOSIS Blood platelet mean volumeOr dered By: Roberto Andre on 02-20-2022 Platelet mean volume (Bld) [Entitic vol] 11.7 fL 6.2-12.0 [facility] Determination of erythrocyte mean corpuscular volume (MCV)Ordered By: Roberto Andre on 02-20-2022 MCV (RBC) [Entitic vol] 91.0 fL 81-99 [facility] Hematocrit Auto (Bld) [Volum e fraction]Ordered By: Roberto Andre on 02-20-2022 Hematocrit (Bld) [Volume fraction] 38.3 % 37-47 [facility] Laboratory - Chemistry and C hemistry - challengeOrdered By: Roberto Andre on 02-20-2022 CO2 [Moles/Vol] 29.0 mmol/L 21.0-32.0 [facility] Urea nitrogen/Creatinine [Mass ratio] 20.7 mg/mg 10-20 [facility] Laboratory - Hematology and Cell countsOrdered By: Roberto Andre on 02-20-2022 Erythrocyte distribution width (RBC) [Entitic vol] 66.1 fL 35.1-43.9 [facility] Erythrocyte distribution width (RBC) [Ratio] 19.8 % 11.6-14.6 [facility] MCH (RBC) [Entitic mass] 29.2 pg 27.0-32.0 [facility] MCHC Auto (RBC) [Mass/Vol]Or dered By: Roberto Andre on 11-01-2022 MCHC (RBC) [Mass/Vol] 32.1 g/dL 32-36 [facility] No Panel InformationOrdered By: Roberto Andre on 02-20-2022 Estimated GFR (MDRD) Amer 182 mL/min >60 [facility] Comment on above: GFR Calc Estimated GFR (MDRD) Non-Af Amer 150 mL/min >60 [facility] Comment on above: Non- GFR Calc Platelets bldOrdered By: Wan Andre on 02-20-2022 Platelets (Bld) [#/Vol] 325 10*3/uL 150-450 [facility] Serum or plasma calcium rajni urement (mass/volume)Ordered By: Roberto Andre on 02-20-2022 Calcium [Mass/Vol] 9.3 mg/dL 8.5-10.1 [facility] Serum or plasma creatinine m easurement (mass/volume)Ordered By: Roberto Andre on 02-20-2022 Creatinine [Mass/Vol] 0.44 mg/dL 0.55-1.02 [facility] Comment on above: The validity of the calculated GFR & GFRAA in patients over 70 years has not been determined. Clinical correlation is essential. Serum or plasma urea nitroge n measurement (mass/volume)Ordered By: Roberto Andre on 02-20-2022 Urea nitrogen [Mass/Vol] 9 mg/dL 7-18 [facility] Thin prep Papanicolaou smear with manual screeningOrdered By: Roberto Andre on 02-20-2022 Thin prep Papanicolaou smear with manual screening 7 5-15 [facility] Basophil percentageon 2021 Chloride [Moles/Vol] 106 mmol/L 98-107 [facility] Work Phone: Glucose [Mass/Vol] 78 mg/dL 74-106 [facility] Work Phone: Potassium [Moles/Vol] 3.8 mmol/L 3.5-5.1 [facility] Work Phone: Sodium [Moles/Vol] 140 mmol/L 136-145 [facility] Work Phone: WBC (Bld) [#/Vol] 5.2 10*3/uL 4.4-11.0 [facility] Work Phone: Blood erythrocytes count (nu mber/volume)on 02-13-2022 RBC (Bld) [#/Vol] 3.68 10*6/uL 4.2-5.4 [facility] Work Phone: Blood hemoglobin measurement (mass/volume)on 02-13-2022 Hemoglobin (Bld) [Mass/Vol] 10.7 g/dL 12.0-15.0 [facility] Work Phone: [phone] Blood platelet mean volumeon 02-13-2022 Platelet mean volume (Bld) [Entitic vol] 12.6 fL 6.2-12.0 [facility] Work Phone: Determination of erythrocyte mean corpuscular volume (MCV)on 02-13-2022 MCV (RBC) [Entitic vol] 90.5 fL 81-99 [facility] Work Phone: [phone] Hematocrit Auto (Bld) [Volum e fraction]on 02-13-2022 Hematocrit (Bld) [Volume fraction] 33.3 % 37-47 [facility] Work Phone: Laboratory - Chemistry and C hemistry - challengeon 02-13-2022 CO2 [Moles/Vol] 32.0 mmol/L 21.0-32.0 [facility] Work Phone: [phone] Urea nitrogen/Creatinine [Mass ratio] 28.9 mg/mg 10-20 [facility] Work Phone: [phone] Laboratory - Hematology and Cell countson 02-13-2022 Erythrocyte distribution width (RBC) [Entitic vol] 67.1 fL 35.1-43.9 [facility] Work Phone: [phone] Erythrocyte distribution width (RBC) [Ratio] 20.0 % 11.6-14.6 [facility] Work Phone: [phone] MCH (RBC) [Entitic mass] 29.1 pg 27.0-32.0 [facility] Work Phone: [phone] MCHC Auto (RBC) [Mass/Vol]on 02-13-2022 MCHC (RBC) [Mass/Vol] 32.1 g/dL 32-36 [facility] Work Phone: No Panel Informationon 02-13 Estimated GFR (MDRD) Amer 175 mL/min >60 [facility] Work Phone: Comment on above: GFR Calc Estimated GFR (MDRD) Non-Af Amer 144 mL/min >60 [facility] Work Phone: Comment on above: Non- GFR Calc Platelets bldon 02-13-2022 Platelets (Bld) [#/Vol] 258 10*3/uL 150-450 [facility] Work Phone: Serum or plasma calcium rajni urement (mass/volume)on 02-13-2022 Calcium [Mass/Vol] 9.1 mg/dL 8.5-10.1 [facility] Work Phone: Serum or plasma creatinine m easurement (mass/volume)on 02-13-2022 Creatinine [Mass/Vol] 0.45 mg/dL 0.55-1.02 [facility] Work Phone: Comment on above: The validity of the calculated GFR & GFRAA in patients over 70 years has not been determined. Clinical correlation is essential. Serum or plasma urea nitroge n measurement (mass/volume)on 02-13-2022 Urea nitrogen [Mass/Vol] 13 mg/dL 7-18 [facility] Work Phone: Thin prep Papanicolaou smear with manual screeningon 02-13-2022 Thin prep Papanicolaou smear with manual screening 2 5-15 [facility] Work Phone: Basophil percentageon 2021 Chloride [Moles/Vol] 105 mmol/L 98-107 [facility] Work Phone: Glucose [Mass/Vol] 80 mg/dL 74-106 [facility] Work Phone: [phone] Potassium [Moles/Vol] 3.8 mmol/L 3.5-5.1 [facility] Work Phone: Sodium [Moles/Vol] 141 mmol/L 136-145 [facility] Work Phone: [phone] WBC (Bld) [#/Vol] 5.6 10*3/uL 4.4-11.0 [facility] Work Phone: [phone] Blood erythrocytes count (nu mber/volume)on 02-06-2022 RBC (Bld) [#/Vol] 3.76 10*6/uL 4.2-5.4 [facility] Work Phone: [phone] Blood hemoglobin measurement (mass/volume)on 02-06-2022 Hemoglobin (Bld) [Mass/Vol] 10.6 g/dL 12.0-15.0 [facility] Work Phone: [phone] Blood manual differential co mment interpretation (narrative result)on 02-06-2022 Manual differential comment Donnie (Bld) [Interp] COMMENT [facility] Work Phone: Comment on above: 1+ ANISO. Blood platelet mean volumeon 02-06-2022 Platelet mean volume (Bld) [Entitic vol] 12.8 fL 6.2-12.0 [facility] Work Phone: [phone] Determination of erythrocyte mean corpuscular volume (MCV)on 02-06-2022 MCV (RBC) [Entitic vol] 89.6 fL 81-99 [facility] Work Phone: [phone] Hematocrit Auto (Bld) [Volum e fraction]on 02-06-2022 Hematocrit (Bld) [Volume fraction] 33.7 % 37-47 [facility] Work Phone: [phone] Laboratory - Chemistry and C hemistry - challengeon 02-06-2022 CO2 [Moles/Vol] 28.0 mmol/L 21.0-32.0 [facility] Work Phone: [phone] Urea nitrogen/Creatinine [Mass ratio] 32.7 mg/mg 10-20 [facility] Work Phone: [phone] Laboratory - Hematology and Cell countson 02-06-2022 Erythrocyte distribution width (RBC) [Entitic vol] 66.9 fL 35.1-43.9 [facility] Work Phone: Erythrocyte distribution width (RBC) [Ratio] 20.2 % 11.6-14.6 [facility] Work Phone: MCH (RBC) [Entitic mass] 28.2 pg 27.0-32.0 [facility] Work Phone: MCHC Auto (RBC) [Mass/Vol]on 02-06-2022 MCHC (RBC) [Mass/Vol] 31.5 g/dL 32-36 [facility] Work Phone: No Panel Informationon 02-06 Estimated GFR (MDRD) Amer 158 mL/min >60 [facility] Work Phone: Comment on above: GFR Calc Estimated GFR (MDRD) Non-Af Amer 131 mL/min >60 [facility] Work Phone: Comment on above: Non- GFR Calc Platelets bldon 02-06-2022 Platelets (Bld) [#/Vol] 236 10*3/uL 150-450 [facility] Work Phone: Serum or plasma calcium rajni urement (mass/volume)on 02-06-2022 Calcium [Mass/Vol] 9.0 mg/dL 8.5-10.1 [facility] Work Phone: Serum or plasma creatinine m easurement (mass/volume)on 02-06-2022 Creatinine [Mass/Vol] 0.49 mg/dL 0.55-1.02 [facility] Work Phone: Comment on above: The validity of the calculated GFR & GFRAA in patients over 70 years has not been determined. Clinical correlation is essential. Serum or plasma urea nitroge n measurement (mass/volume)on 02-06-2022 Urea nitrogen [Mass/Vol] 16 mg/dL -18 [facility] Work Phone: Thin prep Papanicolaou smear with manual screeningon 02-06-2022 Thin prep Papanicolaou smear with manual screening 8 5-15 [facility] Work Phone: Basophil percentageon 2021 Chloride [Moles/Vol] 104 mmol/L 98-[address] [facility] Work Phone: Glucose [Mass/Vol] 83 mg/dL 74-106 [facility] Work Phone: [phone] Potassium [Moles/Vol] 3.9 mmol/L 3.5-5.1 [facility] Work Phone: [phone] Sodium [Moles/Vol] 139 mmol/L 136-145 [facility] Work [facility]: [phone] WBC (Bld) [#/Vol] 7.0 10*3/uL 4.4-11.0 [facility] Work Phone: Blood erythrocytes count (nu mber/volume)on 01-30-2022 RBC (Bld) [#/Vol] 4.34 10*6/uL 4.2-5.[facility] Blood hemoglobin measurement (mass/volume)on 01-30-2022 Hemoglobin (Bld) [Mass/Vol] 12.0 g/dL 12.0-15.0 [facility] Work Phone: Blood platelet mean volumeon 01-30-2022 Platelet mean volume (Bld) [Entitic vol] 13.4 fL 6.2-12.0 [facility] Work Phone: Determination of erythrocyte mean corpuscular volume (MCV)on 01-30-2022 MCV (RBC) [Entitic vol] 90.1 fL 81-99 [facility] Work Phone: [phone] Hematocrit Auto (Bld) [Volum e fraction]on 01-30-2022 Hematocrit (Bld) [Volume fraction] 39.1 % 37-47 [facility] Work Phone: Laboratory - Chemistry and C hemistry - challengeon 01-30-2022 CO2 [Moles/Vol] 28.0 mmol/L 21.0-32.0 [facility] Work Phone: Urea nitrogen/Creatinine [Mass ratio] 17.5 mg/mg 10-20 [facility] Work Phone: Laboratory - Hematology and Cell countson 01-30-2022 Erythrocyte distribution width (RBC) [Entitic vol] 66.9 fL 35.1-43.9 [facility] Work Phone: Erythrocyte distribution width (RBC) [Ratio] 20.3 % 11.6-14.6 [facility] Work Phone: MCH (RBC) [Entitic mass] 27.6 pg 27.0-32.0 [facility] Work Phone: MCHC Auto (RBC) [Mass/Vol]on 01-30-2022 MCHC (RBC) [Mass/Vol] 30.7 g/dL 32- [facility] Work Phone: No Panel Informationon 01-30 Estimated GFR (MDRD) Amer 133 mL/min >60 [facility] Work Phone: Comment on above: GFR Calc Estimated GFR (MDRD) Non-Af Amer 110 mL/min >60 [facility] Work Phone: Comment on above: Non- GFR Calc Platelets bldon 01-30-2022 Platelets (Bld) [#/Vol] 249 10*3/uL 150-450 [facility] Work Phone: Serum or plasma calcium rajni urement (mass/volume)on 01-30-2022 Calcium [Mass/Vol] 8.9 mg/dL 8.5-10.1 [facility] Work Phone: Serum or plasma creatinine m easurement (mass/volume)on 01-30-2022 Creatinine [Mass/Vol] 0.57 mg/dL 0.55-1.02 [facility] Work Phone: Comment on above: The validity of the calculated GFR & GFRAA in patients over 70 years has not been determined. Clinical correlation is essential. Serum or plasma urea nitroge n measurement (mass/volume)on 01-30-2022 Urea nitrogen [Mass/Vol] 10 mg/dL 7-18 [facility] Work Phone: Thin prep Papanicolaou smear with manual screeningon 01-30-2022 Thin prep Papanicolaou smear with manual screening 7 5-15 [facility] Work Phone: Basophil percentageon 2021 Chloride [Moles/Vol] 106 mmol/L 98-107 [facility] Work Phone: [phone] Glucose [Mass/Vol] 92 mg/dL 74-106 [facility] Work Phone: [phone] Potassium [Moles/Vol] 3.2 mmol/L 3.5-5.1 [facility] Work Phone: [phone] Sodium [Moles/Vol] 142 mmol/L 136-145 [facility] Work Phone: [phone] WBC (Bld) [#/Vol] 7.6 10*3/uL 4.4-11.0 [facility] Work Phone: Blood erythrocytes count (nu mber/volume)on 01-22-2022 RBC (Bld) [#/Vol] 4.15 10*6/uL 4.2-5.4 [facility] Work Phone: [phone] Blood hemoglobin measurement (mass/volume)on 01-22-2022 Hemoglobin (Bld) [Mass/Vol] 11.4 g/dL 12.0-15.0 [facility] Work Phone: [phone] Blood platelet mean volumeon 01-22-2022 Platelet mean volume (Bld) [Entitic vol] 12.8 fL 6.2-12.0 [facility] Work Phone: [phone] Determination of erythrocyte mean corpuscular volume (MCV)on 01-22-2022 MCV (RBC) [Entitic vol] 88.0 fL 81-99 [facility] Work Phone: [phone] Hematocrit Auto (Bld) [Volum e fraction]on 01-22-2022 Hematocrit (Bld) [Volume fraction] 36.5 % 37-47 [facility] Work Phone: Laboratory - Chemistry and C hemistry - challengeon 01-22-2022 CO2 [Moles/Vol] 26.0 mmol/L 21.0-32.0 [facility] Work Phone: [phone] Magnesium [Mass/Vol] 1.9 mg/dL 1.6-2.6 [facility] Work Phone: [phone] Urea nitrogen/Creatinine [Mass ratio] 24.1 mg/mg 10-20 [facility] Work Phone: [phone] Laboratory - Hematology and Cell countson 01-22-2022 Erythrocyte distribution width (RBC) [Entitic vol] 63.7 fL 35.1-43.9 [facility] Work Phone: [phone] Erythrocyte distribution width (RBC) [Ratio] 19.9 % 11.6-14.6 [facility] Work Phone: [phone] MCH (RBC) [Entitic mass] 27.5 pg 27.0-32.0 [facility] Work Phone: [phone] MCHC Auto (RBC) [Mass/Vol]on 01-22-2022 MCHC (RBC) [Mass/Vol] 31.2 g/dL 32-36 [facility] Work Phone: [phone] No Panel Informationon 01-22 Estimated GFR (MDRD) Amer 130 mL/min >60 [facility] Work Phone: [phone] Comment on above: GFR Calc Estimated GFR (MDRD) Non-Af Amer 107 mL/min >60 [facility] Work Phone: [phone] Comment on above: Non- GFR Calc Thyroid Stimulating Hormone (TSH) 0.57 uIU/mL 0.358-3.74 [facility] Work Phone: [phone] Vitamin D 25-Hydroxy 39.5 ng/mL [facility] Work Phone: [phone] Comment on above: Vitamin D 25(OH) Sta tus Range Deficiency <20 ng/mL (50nmol/L) Insufficiency 20 - 30 ng/mL (50 - 75 nmol/L) Sufficiency 30 - 100 ng/mL (75 - 250 nmol/L) Toxicity >100 ng/mL (>250 nmol/L) Platelets bldon 01-22-2022 Platelets (Bld) [#/Vol] 263 10*3/uL 150-450 [facility] Work Phone: Serum or plasma calcium rajni urement (mass/volume)on 01-22-2022 Calcium [Mass/Vol] 8.5 mg/dL 8.5-10.1 [facility] Work Phone: Serum or plasma creatinine m easurement (mass/volume)on 01-22-2022 Creatinine [Mass/Vol] 0.58 mg/dL 0.55-1.02 [facility] Work Phone: Comment on above: The validity of the calculated GFR & GFRAA in patients over 70 years has not been determined. Clinical correlation is essential. Serum or plasma urea nitroge n measurement (mass/volume)on 01-22-2022 Urea nitrogen [Mass/Vol] 14 mg/dL 7-18 [facility] Work Phone: Thin prep Papanicolaou smear with manual screeningon 01-22-2022 Thin prep Papanicolaou smear with manual screening 10 5-15 [facility] Work Phone: Basophil percentageon 2021 Chloride [Moles/Vol] 104 mmol/L 98-107 [facility] Work Phone: Glucose [Mass/Vol] 89 mg/dL 74-106 [facility] Work Phone: Potassium [Moles/Vol] 3.8 mmol/L 3.5-5.1 [facility] Work Phone: Sodium [Moles/Vol] 139 mmol/L 136-145 [facility] Work Phone: WBC (Bld) [#/Vol] 6.8 10*3/uL 4.4-11.0 [facility] Work Phone: Blood erythrocytes count (nu mber/volume)on 01-16-2022 RBC (Bld) [#/Vol] 3.95 10*6/uL 4.2-5.4 [facility] Work Phone: Blood hemoglobin measurement (mass/volume)on 01-16-2022 Hemoglobin (Bld) [Mass/Vol] 10.9 g/dL 12.0-15.0 [facility] Work Phone: [phone] Blood platelet mean volumeon 01-16-2022 Platelet mean volume (Bld) [Entitic vol] 12.9 fL 6.2-12.0 [facility] Work Phone: Determination of erythrocyte mean corpuscular volume (MCV)on 01-16-2022 MCV (RBC) [Entitic vol] 87.3 fL 81-99 [facility] Work Phone: [phone] Hematocrit Auto (Bld) [Volum e fraction]on 01-16-2022 Hematocrit (Bld) [Volume fraction] 34.5 % 37-47 [facility] Work Phone: Laboratory - Chemistry and C hemistry - challengeon 01-16-2022 CO2 [Moles/Vol] 28.0 mmol/L 21.0-32.0 [facility] Work Phone: Urea nitrogen/Creatinine [Mass ratio] 22.2 mg/mg 10-20 [facility] Work Phone: Laboratory - Hematology and Cell countson 01-16-2022 Erythrocyte distribution width (RBC) [Entitic vol] 60.9 fL 35.1-43.9 [facility] Work Phone: [phone] Erythrocyte distribution width (RBC) [Ratio] 18.9 % 11.6-14.6 [facility] Work Phone: [phone] MCH (RBC) [Entitic mass] 27.6 pg 27.0-32.0 [facility] Work Phone: [phone] MCHC Auto (RBC) [Mass/Vol]on 01-16-2022 MCHC (RBC) [Mass/Vol] 31.6 g/dL 32-36 [facility] Work Phone: No Panel Informationon 01-16 Estimated GFR (MDRD) Amer 142 mL/min >60 [facility] Work Phone: Comment on above: GFR Calc Estimated GFR (MDRD) Non-Af Amer 117 mL/min >60 [facility] Work Phone: Comment on above: Non- GFR Calc Platelets bldon 01-16-2022 Platelets (Bld) [#/Vol] 286 10*3/uL 150-450 [facility] Work Phone: Serum or plasma calcium rajni urement (mass/volume)on 01-16-2022 Calcium [Mass/Vol] 8.3 mg/dL 8.5-10.1 [facility] Work Phone: Serum or plasma creatinine m easurement (mass/volume)on 01-16-2022 Creatinine [Mass/Vol] 0.54 mg/dL 0.55-1.02 [facility] Work Phone: Comment on above: The validity of the calculated GFR & GFRAA in patients over 70 years has not been determined. Clinical correlation is essential. Serum or plasma urea nitroge n measurement (mass/volume)on 01-16-2022 Urea nitrogen [Mass/Vol] 12 mg/dL 7-18 [facility] Work Phone: Thin prep Papanicolaou smear with manual screeningon 01-16-2022 Thin prep Papanicolaou smear with manual screening 7 5-15 [facility] Work Phone: Basophil percentageon 2021 Chloride [Moles/Vol] 106 mmol/L 98-107 [facility] Work Phone: Glucose [Mass/Vol] 91 mg/dL 74-106 [facility] Work Phone: [phone] Potassium [Moles/Vol] 4.3 mmol/L 3.5-5.1 [facility] Work Phone: [phone] Sodium [Moles/Vol] 140 mmol/L 136-145 [facility] Work Phone: [phone] WBC (Bld) [#/Vol] 14.6 10*3/uL 4.4-11.0 [facility] Work Phone: Blood erythrocytes count (nu mber/volume)on 01-09-2022 RBC (Bld) [#/Vol] 3.86 10*6/uL 4.2-5.4 [facility] Work Phone: Blood hemoglobin measurement (mass/volume)on 01-09-2022 Hemoglobin (Bld) [Mass/Vol] 10.6 g/dL 12.0-15.0 [facility] Work Phone: Blood platelet mean volumeon 01-09-2022 Platelet mean volume (Bld) [Entitic vol] 13.1 fL 6.2-12.0 [facility] Work Phone: CNOVon 01-09-2022 CNOV Normal [facility] Determination of erythrocyte mean corpuscular volume (MCV)on 01-09-2022 MCV (RBC) [Entitic vol] 88.1 fL 81-99 [facility] Work Phone: [phone] Hematocrit Auto (Bld) [Volum e fraction]on 01-09-2022 Hematocrit (Bld) [Volume fraction] 34.0 % 37-47 [facility] Work Phone: Laboratory - Chemistry and C hemistry - challengeon 01-09-2022 CO2 [Moles/Vol] 28.0 mmol/L 21.0-32.0 [facility] Work Phone: [phone] Urea nitrogen/Creatinine [Mass ratio] 24.5 mg/mg 02-08 [facility] Work Phone: [phone] Laboratory - Hematology and Cell countson 01-09-2022 Erythrocyte distribution width (RBC) [Entitic vol] 59.2 fL 35.1-43.9 [facility] Work Phone: [phone] Erythrocyte distribution width (RBC) [Ratio] 18.4 % 11.6-14.6 [facility] Work Phone: [phone] MCH (RBC) [Entitic mass] 27.5 pg 27.0-32.0 [facility] Work Phone: MCHC Auto (RBC) [Mass/Vol]on 01-09-2022 MCHC (RBC) [Mass/Vol] 31.2 g/dL 32-36 [facility] Work Phone: No Panel Informationon 01-09 Estimated GFR (MDRD) Amer 144 mL/min >60 [facility] Work Phone: Comment on above: GFR Calc Estimated GFR (MDRD) Non-Af Amer 119 mL/min >60 [facility] Work Phone: Comment on above: Non- GFR Calc Platelets bldon 01-09-2022 Platelets (Bld) [#/Vol] 220 10*3/uL 150-450 [facility] Work Phone: Serum or plasma calcium rajni urement (mass/volume)on 01-09-2022 Calcium [Mass/Vol] 8.6 mg/dL 8.5-10.1 [facility] Work Phone: Serum or plasma creatinine m easurement (mass/volume)on 01-09-2022 Creatinine [Mass/Vol] 0.53 mg/dL 0.55-1.02 [facility] Work Phone: Comment on above: The validity of the calculated GFR & GFRAA in patients over 70 years has not been determined. Clinical correlation is essential. Serum or plasma urea nitroge n measurement (mass/volume)on 01-09-2022 Urea nitrogen [Mass/Vol] 13 mg/dL 7-18 [facility] Work Phone: [phone] Thin prep Papanicolaou smear with manual screeningon 01-09-2022 Thin prep Papanicolaou smear with manual screening 6 5-15 [facility] Work Phone: [phone] MRI BRAIN WO/W IVCONon 01-04 [facility] Basophil percentageon 2021 Chloride [Moles/Vol] 107 mmol/L 98-107 [facility] Work Phone: [phone] Glucose [Mass/Vol] 89 mg/dL 74-106 [facility] Work Phone: [phone] Potassium [Moles/Vol] 4.0 mmol/L 3.5-5.1 [facility] Work Phone: [phone] Sodium [Moles/Vol] 141 mmol/L 136-145 [facility] Work Phone: [phone] WBC (Bld) [#/Vol] 6.8 10*3/uL 4.4-11.0 [facility] Work Phone: [phone] Blood erythrocytes count (nu mber/volume)on 01-02-2022 RBC (Bld) [#/Vol] 4.07 10*6/uL 4.2-5.4 [facility]: [phone] Blood hemoglobin measurement (mass/volume)on 01-02-2022 Hemoglobin (Bld) [Mass/Vol] 11.5 g/dL 12.0-15.0 [facility] Work Phone: [phone] Blood platelet mean volumeon 01-02-2022 Platelet mean volume (Bld) [Entitic vol] 13.0 fL 6.2-12.0 [facility] Work Phone: [phone] Determination of erythrocyte mean corpuscular volume (MCV)on 01-02-2022 MCV (RBC) [Entitic vol] 90.4 fL 81-99 [facility] Work Phone: [phone] Hematocrit Auto (Bld) [Volum e fraction]on 01-02-2022 Hematocrit (Bld) [Volume fraction] 36.8 % 37-47 [facility] Work Phone: [phone] Laboratory - Chemistry and C hemistry - challengeon 01-02-2022 CO2 [Moles/Vol] 27.0 mmol/L 21.0-32.0 [facility] Work Phone: [phone] Urea nitrogen/Creatinine [Mass ratio] 15.7 mg/mg 10-20 [facility] Work Phone: [phone] Laboratory - Hematology and Cell countson 01-02-2022 Erythrocyte distribution width (RBC) [Entitic vol] 57.1 fL 35.1-43.9 [facility] Work Phone: Erythrocyte distribution width (RBC) [Ratio] 17.2 % 11.6-14.6 [facility] Work Phone: MCH (RBC) [Entitic mass] 28.3 pg 27.0-32.0 [facility] Work Phone: MCHC Auto (RBC) [Mass/Vol]on 01-02-2022 MCHC (RBC) [Mass/Vol] 31.3 g/dL 32-36 [facility] Work Phone: No Panel Informationon 01-02 Estimated GFR (MDRD) Amer 132 mL/min >60 [facility] Work Phone: Comment on above: GFR Calc Estimated GFR (MDRD) Non-Af Amer 109 mL/min >60 [facility] Work Phone: Comment on above: Non- GFR Calc Platelets bldon 01-02-2022 Platelets (Bld) [#/Vol] 274 10*3/uL 150-450 [facility] Work Phone: Serum or plasma calcium rajni urement (mass/volume)on 01-02-2022 Calcium [Mass/Vol] 9.7 mg/dL 8.5-10.1 [facility] Work Phone: Serum or plasma creatinine m easurement (mass/volume)on 01-02-2022 Creatinine [Mass/Vol] 0.58 mg/dL 0.55-1.02 [facility] Work Phone: Comment on above: The validity of the calculated GFR & GFRAA in patients over 70 years has not been determined. Clinical correlation is essential. Serum or plasma urea nitroge n measurement (mass/volume)on 01-02-2022 Urea nitrogen [Mass/Vol] 9 mg/dL 7-18 [facility] Work Phone: Thin prep Papanicolaou smear with manual screeningon 01-02-2022 Thin prep Papanicolaou smear with manual screening 7 5-15 [facility] Work Phone: [phone] Basophil percentageon 2021 Chloride [Moles/Vol] 104 mmol/L 98-[address] [facility] [address] [facility] Work Phone: [phone] Glucose [Mass/Vol] 77 mg/dL 74-106 [facility] Work Phone: [phone] Potassium [Moles/Vol] 4.1 mmol/L 3.5-5.1 [facility] Work Phone: [phone] Sodium [Moles/Vol] 140 mmol/L 136-145 [facility] Work Phone: [phone] WBC (Bld) [#/Vol] 7.0 10*3/uL 4.4-11.0 [facility] Work Phone: [phone] Blood erythrocytes count (nu mber/volume)on 12-26-2021 RBC (Bld) [#/Vol] 4.18 10*6/uL 4.2-5.4 [facility] Work Phone: [phone] Blood hemoglobin measurement (mass/volume)on 12-26-2021 Hemoglobin (Bld) [Mass/Vol] 12.5 g/dL 12.0-15.0 [facility] Work Phone: [phone] Blood platelet mean volumeon 12-26-2021 Platelet mean volume (Bld) [Entitic vol] 12.1 fL 6.2-12.0 [facility] Work Phone: [phone] Determination of erythrocyte mean corpuscular volume (MCV)on 12-26-2021 MCV (RBC) [Entitic vol] 96.9 fL 81-99 [facility] Work Phone: [phone] Hematocrit Auto (Bld) [Volum e fraction]on 12-26-2021 Hematocrit (Bld) [Volume fraction] 40.5 % 37-47 [facility] Work Phone: [phone] Laboratory - Chemistry and C hemistry - challengeon 12-26-2021 CO2 [Moles/Vol] 27.0 mmol/L 21.0-32.0 [facility] Work Phone: [phone] Urea nitrogen/Creatinine [Mass ratio] 18.7 mg/mg 10-20 [facility] Work Phone: Laboratory - Hematology and Cell countson 12-26-2021 Erythrocyte distribution width (RBC) [Entitic vol] 58.4 fL 35.1-43.9 [facility] Work Phone: [phone] Erythrocyte distribution width (RBC) [Ratio] 18.4 % 11.6-14.6 [facility] Work Phone: [phone] MCH (RBC) [Entitic mass] 29.9 pg 27.0-32.0 [facility] Work Phone: [phone] MCHC Auto (RBC) [Mass/Vol]on 12-26-2021 MCHC (RBC) [Mass/Vol] 30.9 g/dL 32-36 [facility] Work Phone: [phone] No Panel Informationon 12-26 Estimated GFR (MDRD) Amer 143 mL/min >60 [facility] Work Phone: Comment on above: GFR Calc Estimated GFR (MDRD) Non-Af Amer 118 mL/min >60 [facility] Work Phone: Comment on above: Non- GFR Calc Platelets bldon 12-26-2021 Platelets (Bld) [#/Vol] 286 10*3/uL 150-450 [facility] Work Phone: [phone] Serum or plasma calcium rajni urement (mass/volume)on 12-26-2021 Calcium [Mass/Vol] 9.8 mg/dL 8.5-10.1 [facility] Work Phone: [phone] Serum or plasma creatinine m easurement (mass/volume)on 12-26-2021 Creatinine [Mass/Vol] 0.54 mg/dL 0.55-1.02 [facility] Work Phone: Comment on above: The validity of the calculated GFR & GFRAA in patients over 70 years has not been determined. Clinical correlation is essential. Serum or plasma urea nitroge n measurement (mass/volume)on 12-26-2021 Urea nitrogen [Mass/Vol] 10 mg/dL 7-18 [facility] Work Phone: Thin prep Papanicolaou smear with manual screeningon 12-26-2021 Thin prep Papanicolaou smear with manual screening 9 5-15 [facility] Work Phone: Basophil percentageon 2021 Chloride [Moles/Vol] 108 mmol/L 98-107 [facility] Work Phone: [phone] Glucose [Mass/Vol] 91 mg/dL 74-106 [facility] Work Phone: [phone] Potassium [Moles/Vol] 3.5 mmol/L 3.5-5.1 [facility] Work Phone: [phone] Sodium [Moles/Vol] 142 mmol/L 136-145 [facility] Work Phone: [phone] WBC (Bld) [#/Vol] 7.1 10*3/uL 4.4-11.0 [facility] Work Phone: Blood erythrocytes count (nu mber/volume)on 12-20-2021 RBC (Bld) [#/Vol] 3.81 10*6/uL 4.2-5.4 [facility] Work Phone: [phone] Blood hemoglobin measurement (mass/volume)on 12-20-2021 Hemoglobin (Bld) [Mass/Vol] 10.6 g/dL 12.0-15.0 [facility] Work Phone: Blood platelet mean volumeon 12-20-2021 Platelet mean volume (Bld) [Entitic vol] 13.0 fL 6.2-12.0 [facility] Work Phone: [phone] Determination of erythrocyte mean corpuscular volume (MCV)on 12-20-2021 MCV (RBC) [Entitic vol] 89.0 fL 81-99 [facility] Work Phone: [phone] Hematocrit Auto (Bld) [Volum e fraction]on 12-20-2021 Hematocrit (Bld) [Volume fraction] 33.9 % 37-47 [facility] Work Phone: Laboratory - Chemistry and C hemistry - challengeon 12-20-2021 CO2 [Moles/Vol] 27.0 mmol/L 21.0-32.0 [facility] Work Phone: [phone] Urea nitrogen/Creatinine [Mass ratio] 19.1 mg/mg 10-20 [facility] Work Phone: [phone] Laboratory - Hematology and Cell countson 12-20-2021 Erythrocyte distribution width (RBC) [Entitic vol] 51.5 fL 35.1-43.9 [facility] Work Phone: [phone] Erythrocyte distribution width (RBC) [Ratio] 15.8 % 11.6-14.6 [facility] Work Phone: [phone] MCH (RBC) [Entitic mass] 27.8 pg 27.0-32.0 [facility] Work Phone: [phone] MCHC Auto (RBC) [Mass/Vol]on 12-20-2021 MCHC (RBC) [Mass/Vol] 31.3 g/dL 32-36 [facility] Work Phone: [phone] No Panel Informationon 12-20 Estimated GFR (MDRD) Amer 132 mL/min >60 [facility] Work Phone: Comment on above: GFR Calc Estimated GFR (MDRD) Non-Af Amer 109 mL/min >60 [facility] Work Phone: [phone] Comment on above: Non- GFR Calc Platelets bldon 12-20-2021 Platelets (Bld) [#/Vol] 286 10*3/uL 150-450 [facility] Work Phone: [phone] Serum or plasma calcium rajni urement (mass/volume)on 12-20-2021 Calcium [Mass/Vol] 8.9 mg/dL 8.5-10.1 [facility] Work Phone: [phone] Serum or plasma creatinine m easurement (mass/volume)on 12-20-2021 Creatinine [Mass/Vol] 0.58 mg/dL 0.55-1.02 [facility] Work Phone: [phone] Comment on above: The validity of the calculated GFR & GFRAA in patients over 70 years has not been determined. Clinical correlation is essential. Serum or plasma urea nitroge n measurement (mass/volume)on 12-20-2021 Urea nitrogen [Mass/Vol] 11 mg/dL 7-18 [facility] Work Phone: Thin prep Papanicolaou smear with manual screeningon 12-20-2021 Thin prep Papanicolaou smear with manual screening 7 5-15 [facility] Work Phone: Basophil percentageon 2021 Basophil percentage 10-25 SEEN /hpf 0-5 [facility] Work Phone: Bilirubin Test strip Ql (U)o n 12-18-2021 Bilirubin Ql (U) Negative Negative [facility] Work Phone: Ketones Test strip Ql (U)on 12-18-2021 Ketones Ql (U) Negative Negative [facility] Work Phone: Mucus LM Ql (Urine sed)on Mucus Ql (Urine sed) 0 SEEN /hpf [facility] Work Phone: Nitrite Test strip Ql (U)on 12-18-2021 Nitrite Ql (U) Negative Negative [facility] Work Phone: Protein Test strip Ql (U)on 12-18-2021 Protein Ql (U) Negative Negative [facility] Work Phone: Squamous epithelial cells de tection in urine sediment by light microscopyon 12-18-2021 Epithelial cells.squamous LM Ql (Urine sed) 0 SEEN /hpf 5-10 [facility] Work Phone: Urine blood detectionon 11-21 RBC Ql (U) 10 /ul Negative [facility] Work Phone: RBC Ql (U) 0 SEEN /hpf 0-5 [facility] Work Phone: Urine clarityon 12-18-2021 Clarity (U) Clear Clear [facility] Work Phone: Urine color determinationon 12-18-2021 Color (U) Yellow Yellow [facility] Work Phone: Urine glucose detectionon Glucose Ql (U) Normal mg/dl Normal [facility] Work Phone: [phone] Urine leukocyte esterase det ection by dipstickon 12-18-2021 Leukocyte esterase Test strip Ql (U) 500 /ul Negative [facility] Work Phone: Urine pHon 12-18-2021 pH (U) 6.0 [pH] 5.0 - 8.0 [facility] Work Phone: [phone] Urine sediment bacteria coun t by microscopy (number/high power field)on 12-18-2021 Bacteria LM.HPF (Urine sed) [#/Area] 2 /[HPF] None Seen [facility] Work Phone: [phone] Urine specific gravity measu rementon 12-18-2021 Specific gravity (U) [Rel density] 1.020 1.002-1.030 [facility] Work Phone: [phone] Urobilinogen Auto test strip Ql (U)on 12-18-2021 Urobilinogen Ql (U) Normal mg/dl Normal [facility] Work Phone: Basophil percentageon 2021 Chloride [Moles/Vol] 106 mmol/L 98-107 [facility] Work Phone: [phone] Glucose [Mass/Vol] 85 mg/dL 74-106 [facility] Work Phone: [phone] Potassium [Moles/Vol] 3.5 mmol/L 3.5-5.1 [facility] Work Phone: [phone] Sodium [Moles/Vol] 140 mmol/L 136-145 [facility] Work Phone: [phone] WBC (Bld) [#/Vol] 8.8 10*3/uL 4.4-11.0 [facility] Work Phone: [phone] Blood erythrocytes count (nu mber/volume)on 12-12-2021 RBC (Bld) [#/Vol] 4.43 10*6/uL 4.2-5.4 [facility] Work Phone: Blood hemoglobin measurement (mass/volume)on 12-12-2021 Hemoglobin (Bld) [Mass/Vol] 12.3 g/dL 12.0-15.0 [facility] Work Phone: [phone] Blood platelet mean volumeon 12-12-2021 Platelet mean volume (Bld) [Entitic vol] 12.8 fL 6.2-12.0 [facility] Work Phone: [phone] Determination of erythrocyte mean corpuscular volume (MCV)on 12-12-2021 MCV (RBC) [Entitic vol] 87.6 fL 81-99 [facility] Work Phone: [phone] Hematocrit Auto (Bld) [Volum e fraction]on 12-12-2021 Hematocrit (Bld) [Volume fraction] 38.8 % 37-47 [facility] Work Phone: [phone] Laboratory - Chemistry and C hemistry - challengeon 12-12-2021 CO2 [Moles/Vol] 27.0 mmol/L 21.0-32.0 [facility] Work Phone: [phone] Urea nitrogen/Creatinine [Mass ratio] 18.6 mg/mg 10-20 [facility] Work Phone: [phone] Laboratory - Hematology and Cell countson 12-12-2021 Erythrocyte distribution width (RBC) [Entitic vol] 48.2 fL 35.1-43.9 [facility] Work Phone: [phone] Erythrocyte distribution width (RBC) [Ratio] 14.9 % 11.6-14.6 [facility] Work Phone: [phone] MCH (RBC) [Entitic mass] 27.8 pg 27.0-32.0 [facility] Work Phone: [phone] MCHC Auto (RBC) [Mass/Vol]on 12-12-2021 MCHC (RBC) [Mass/Vol] 31.7 g/dL 32-36 [facility] Work Phone: [phone] No Panel Informationon 12-12 Estimated GFR (MDRD) Amer 142 mL/min >60 [facility] Work Phone: [phone] Comment on above: GFR Calc Estimated GFR (MDRD) Non-Af Amer 117 mL/min >60 [facility] Work Phone: [phone] Comment on above: Non- GFR Calc Platelets bldon 12-12-2021 Platelets (Bld) [#/Vol] 354 10*3/uL 150-450 [facility] Work Phone: [phone] Serum or plasma calcium rajni urement (mass/volume)on 12-12-2021 Calcium [Mass/Vol] 9.8 mg/dL 8.5-10.1 [facility] Work Phone: [phone] Serum or plasma creatinine m easurement (mass/volume)on 12-12-2021 Creatinine [Mass/Vol] 0.54 mg/dL 0.55-1.02 [facility] Work Phone: [phone] Comment on above: The validity of the calculated GFR & GFRAA in patients over 70 years has not been determined. Clinical correlation is essential. Serum or plasma urea nitroge n measurement (mass/volume)on 12-12-2021 Urea nitrogen [Mass/Vol] 10 mg/dL 7-18 [facility] Work Phone: [phone] Thin prep Papanicolaou smear with manual screeningon 12-12-2021 Thin prep Papanicolaou smear with manual screening 7 5-15 [facility] Work Phone: Basophil percentageon 2021 Chloride [Moles/Vol] 104 mmol/L 98-107 [facility] Work Phone: [phone] Glucose [Mass/Vol] 100 mg/dL 74-106 [facility] Work Phone: [phone] Comment on above: Fasting Glucose resu lt from 100 to 125 mg/dL suggests IMPAIRED HOMEOSTASIS per A.D.A. criteria. Potassium [Moles/Vol] 3.8 mmol/L 3.5-5.1 [facility] Work Phone: [phone] Sodium [Moles/Vol] 138 mmol/L 136-145 [facility] Work Phone: [phone] WBC (Bld) [#/Vol] 10.0 10*3/uL 4.4-11.0 [facility] Work Phone: [phone] Blood erythrocytes count (nu mber/volume)on 12-05-2021 RBC (Bld) [#/Vol] 3.74 10*6/uL 4.2-5.4 [facility] Work Phone: [phone] Blood hemoglobin measurement (mass/volume)on 12-05-2021 Hemoglobin (Bld) [Mass/Vol] 10.8 g/dL 12.0-15.0 [facility] Work Phone: [phone] Blood platelet mean volumeon 12-05-2021 Platelet mean volume (Bld) [Entitic vol] 12.0 fL 6.2-12.0 [facility] Work Phone: [phone] Determination of erythrocyte mean corpuscular volume (MCV)on 12-05-2021 MCV (RBC) [Entitic vol] 90.1 fL 81-99 [facility] Work Phone: [phone] Hematocrit Auto (Bld) [Volum e fraction]on 12-05-2021 Hematocrit (Bld) [Volume fraction] 33.7 % 37-47 [facility] Work Phone: [phone] Laboratory - Chemistry and C hemistry - challengeon 12-05-2021 CO2 [Moles/Vol] 26.0 mmol/L 21.0-32.0 [facility] Work Phone: [phone] Urea nitrogen/Creatinine [Mass ratio] 20.2 mg/mg 10-20 [facility] Work Phone: [phone] Laboratory - Hematology and Cell countson 12-05-2021 Erythrocyte distribution width (RBC) [Entitic vol] 48.7 fL 35.1-43.9 [facility] Work Phone: [phone] Erythrocyte distribution width (RBC) [Ratio] 14.6 % 11.6-14.6 [facility] Work Phone: [phone] MCH (RBC) [Entitic mass] 28.9 pg 27.0-32.0 [facility] Work Phone: [phone] MCHC Auto (RBC) [Mass/Vol]on 12-05-2021 MCHC (RBC) [Mass/Vol] 32.0 g/dL 32-36 [facility] Work Phone: No Panel Informationon 12-05 Estimated GFR (MDRD) Amer 157 mL/min >60 [facility] Work Phone: Comment on above: GFR Calc Estimated GFR (MDRD) Non-Af Amer 130 mL/min >60 [facility] Work Phone: Comment on above: Non- GFR Calc Platelets bldon 12-05-2021 Platelets (Bld) [#/Vol] 360 10*3/uL 150-450 [facility] Work Phone: [phone] Serum or plasma calcium rajni urement (mass/volume)on 12-05-2021 Calcium [Mass/Vol] 9.9 mg/dL 8.5-10.1 [facility] Work Phone: [phone] Serum or plasma creatinine m easurement (mass/volume)on 12-05-2021 Creatinine [Mass/Vol] 0.49 mg/dL 0.55-1.02 [facility] Work Phone: Comment on above: The validity of the calculated GFR & GFRAA in patients over 70 years has not been determined. Clinical correlation is essential. Serum or plasma urea nitroge n measurement (mass/volume)on 12-05-2021 Urea nitrogen [Mass/Vol] 10 mg/dL 7-18 [facility] Work Phone: [phone] Thin prep Papanicolaou smear with manual screeningon 12-05-2021 Thin prep Papanicolaou smear with manual screening 8 5-15 [facility] Work Phone: [phone] Bilirubin Test strip Ql (U)o n 12-03-2021 Bilirubin Ql (U) Negative Negative [facility] Work Phone: [phone] Ketones Test strip Ql (U)on 12-03-2021 Ketones Ql (U) 5 mg/dl Negative [facility] Work Phone: [phone] Nitrite Test strip Ql (U)on 12-03-2021 Nitrite Ql (U) Positive Negative [facility] Work Phone: Protein Test strip Ql (U)on 12-03-2021 Protein Ql (U) 30 mg/dl Negative [facility] Work Phone: Urine blood detectionon 11-20 RBC Ql (U) 50 /ul Negative [facility] Work Phone: Urine clarityon 12-03-2021 Clarity (U) Cloudy Clear [facility] Work Phone: Urine color determinationon 12-03-2021 Color (U) Straw Yellow [facility] Work Phone: Urine glucose detectionon Glucose Ql (U) Normal mg/dl Normal [facility] Work Phone: Urine leukocyte esterase det ection by dipstickon 12-03-2021 Leukocyte esterase Test strip Ql (U) 500 /ul Negative [facility] Work Phone: Urine pHon 12-03-2021 pH (U) 6.0 [pH] 5.0 - 8.0 [facility] Work Phone: Urine specific gravity measu rementon 12-03-2021 Specific gravity (U) [Rel density] 1.010 1.002-1.030 [facility] Work Phone: Urobilinogen Auto test strip Ql (U)on 12-03-2021 Urobilinogen Ql (U) Normal mg/dl Normal [facility] Work Phone: Basophil percentageon 2021 Chloride [Moles/Vol] 101 mmol/L 98-107 [facility] Work Phone: Glucose [Mass/Vol] 107 mg/dL 74-106 [facility] Work Phone: Comment on above: Fasting Glucose resu lt from 100 to 125 mg/dL suggests IMPAIRED HOMEOSTASIS per A.D.A. criteria. Potassium [Moles/Vol] 3.6 mmol/L 3.5-5.1 [facility] Work Phone: Sodium [Moles/Vol] 136 mmol/L 136-145 [facility] Work Phone: Laboratory - Chemistry and C hemistry - challengeon 12-01-2021 CO2 [Moles/Vol] 29.0 mmol/L 21.0-32.0 [facility] Work Phone: Urea nitrogen/Creatinine [Mass ratio] 24.2 mg/mg 10-20 [facility] Work Phone: No Panel Informationon 12-01 Estimated GFR (MDRD) Amer 249 mL/min >60 [facility] Work Phone: Comment on above: GFR Calc Estimated GFR (MDRD) Non-Af Amer 206 mL/min >60 [facility] Work Phone: Comment on above: Non- GFR Calc Serum or plasma calcium rajni urement (mass/volume)on 12-01-2021 Calcium [Mass/Vol] 9.0 mg/dL 8.5-10.1 [facility] Work Phone: Serum or plasma creatinine m easurement (mass/volume)on 12-01-2021 Creatinine [Mass/Vol] 0.33 mg/dL 0.55-1.02 [facility] Work Phone: Comment on above: The validity of the calculated GFR & GFRAA in patients over 70 years has not been determined. Clinical correlation is essential. Serum or plasma urea nitroge n measurement (mass/volume)on 12-01-2021 Urea nitrogen [Mass/Vol] 8 mg/dL 7-18 [facility] Work Phone: Thin prep Papanicolaou smear with manual screeningon 12-01-2021 Thin prep Papanicolaou smear with manual screening 6 5-15 [facility] Work Phone: Basophil percentageon 2021 Chloride [Moles/Vol] 100 mmol/L 98-107 [facility] Work Phone: Glucose [Mass/Vol] 81 mg/dL 74-106 [facility] Work Phone: [phone] Potassium [Moles/Vol] 2.7 mmol/L 3.5-5.1 [facility] Work Phone: [phone] Comment on above: Critical Result(s) C alled at: 09:58:37 11/28/2021 by: Rosaura May to Christina. Results read back by same. Sodium [Moles/Vol] 134 mmol/L 136-145 [facility] Work Phone: [phone] WBC (Bld) [#/Vol] 9.7 10*3/uL 4.4-11.0 [facility] Work Phone: [phone] Blood erythrocytes count (nu mber/volume)on 11-28-2021 RBC (Bld) [#/Vol] 3.97 10*6/uL 4.2-5.4 [facility]: [phone] Blood hemoglobin measurement (mass/volume)on 11-28-2021 Hemoglobin (Bld) [Mass/Vol] 11.4 g/dL 12.0-15.0 [facility] Work Phone: [phone] Blood platelet mean volumeon 11-28-2021 Platelet mean volume (Bld) [Entitic vol] 11.8 fL 6.2-12.0 [facility] Work Phone: [phone] Determination of erythrocyte mean corpuscular volume (MCV)on 11-28-2021 MCV (RBC) [Entitic vol] 88.7 fL 81-99 [facility] Work Phone: [phone] Hematocrit Auto (Bld) [Volum e fraction]on 11-28-2021 Hematocrit (Bld) [Volume fraction] 35.2 % 37-47 [facility] Work Phone: [phone] Laboratory - Chemistry and C hemistry - challengeon 11-28-2021 CO2 [Moles/Vol] 25.0 mmol/L 21.0-32.0 [facility] Work Phone: [phone] Urea nitrogen/Creatinine [Mass ratio] 10.9 mg/mg 10-20 [facility] Work Phone: [phone] Laboratory - Hematology and Cell countson 11-28-2021 Erythrocyte distribution width (RBC) [Entitic vol] 45.2 fL 35.1-43.9 [facility] Work Phone: Erythrocyte distribution width (RBC) [Ratio] 13.9 % 11.6-14.6 [facility] Work Phone: MCH (RBC) [Entitic mass] 28.7 pg 27.0-32.0 [facility] Work Phone: [phone] MCHC Auto (RBC) [Mass/Vol]on 11-28-2021 MCHC (RBC) [Mass/Vol] 32.4 g/dL 32-36 [facility] Work Phone: No Panel Informationon 11-28 Estimated GFR (MDRD) Amer 171 mL/min >60 [facility] Work Phone: Comment on above: GFR Calc Estimated GFR (MDRD) Non-Af Amer 141 mL/min >60 [facility] Work Phone: Comment on above: Non- GFR Calc Platelets bldon 11-28-2021 Platelets (Bld) [#/Vol] 339 10*3/uL 150-450 [facility] Work Phone: Serum or plasma calcium rajni urement (mass/volume)on 11-28-2021 Calcium [Mass/Vol] 9.1 mg/dL 8.5-10.1 [facility] Work Phone: [phone] Serum or plasma creatinine m easurement (mass/volume)on 11-28-2021 Creatinine [Mass/Vol] 0.46 mg/dL 0.55-1.02 [facility] Work Phone: Comment on above: The validity of the calculated GFR & GFRAA in patients over 70 years has not been determined. Clinical correlation is essential. Serum or plasma urea nitroge n measurement (mass/volume)on 11-28-2021 Urea nitrogen [Mass/Vol] 5 mg/dL 7-18 [facility] Work Phone: Thin prep Papanicolaou smear with manual screeningon 11-28-2021 Thin prep Papanicolaou smear with manual screening 9 5-15 [facility] Work Phone: Basophil percentageon 2021 Chloride [Moles/Vol] 102 mmol/L 98-107 [facility] Work Phone: [phone] Glucose [Mass/Vol] 103 mg/dL 74-106 [facility] Work Phone: [phone] Comment on above: Fasting Glucose resu lt from 100 to 125 mg/dL suggests IMPAIRED HOMEOSTASIS per A.D.A. criteria. Potassium [Moles/Vol] 3.2 mmol/L 3.5-5.1 [facility] Work Phone: [phone] Sodium [Moles/Vol] 136 mmol/L 136-145 [facility] Work Phone: [phone] WBC (Bld) [#/Vol] 9.2 10*3/uL 4.4-11.0 [facility] Work Phone: Blood erythrocytes count (nu mber/volume)on 11-21-2021 RBC (Bld) [#/Vol] 3.66 10*6/uL 4.2-5.4 [facility] Work Phone: [phone] Blood hemoglobin measurement (mass/volume)on 11-21-2021 Hemoglobin (Bld) [Mass/Vol] 10.6 g/dL 12.0-15.0 [facility] Work Phone: [phone] Blood platelet mean volumeon 11-21-2021 Platelet mean volume (Bld) [Entitic vol] 11.6 fL 6.2-12.0 [facility] Work Phone: [phone] Determination of erythrocyte mean corpuscular volume (MCV)on 11-21-2021 MCV (RBC) [Entitic vol] 91.8 fL 81-99 [facility] Work Phone: [phone] Hematocrit Auto (Bld) [Volum e fraction]on 11-21-2021 Hematocrit (Bld) [Volume fraction] 33.6 % 37-47 [facility] Work Phone: [phone] Laboratory - Chemistry and C hemistry - challengeon 11-21-2021 CO2 [Moles/Vol] 30.0 mmol/L 21.0-32.0 [facility] Work Phone: [phone] Urea nitrogen/Creatinine [Mass ratio] 14.3 mg/mg 10-20 [facility] Work Phone: [phone] Laboratory - Hematology and Cell countson 11-21-2021 Erythrocyte distribution width (RBC) [Entitic vol] 48.1 fL 35.1-43.9 [facility] Work Phone: [phone] Erythrocyte distribution width (RBC) [Ratio] 14.2 % 11.6-14.6 [facility] Work Phone: [phone] MCH (RBC) [Entitic mass] 29.0 pg 27.0-32.0 [facility] Work Phone: [phone] MCHC Auto (RBC) [Mass/Vol]on 11-21-2021 MCHC (RBC) [Mass/Vol] 31.5 g/dL 32-36 [facility] Work Phone: No Panel Informationon 11-21 Estimated GFR (MDRD) Amer 189 mL/min >60 [facility] Work Phone: Comment on above: GFR Calc Estimated GFR (MDRD) Non-Af Amer 156 mL/min >60 [facility] Work Phone: Comment on above: Non- GFR Calc Platelets bldon 11-21-2021 Platelets (Bld) [#/Vol] 382 10*3/uL 150-450 [facility] Work Phone: [phone] Serum or plasma calcium rajni urement (mass/volume)on 11-21-2021 Calcium [Mass/Vol] 9.2 mg/dL 8.5-10.1 [facility] Work Phone: [phone] Serum or plasma creatinine m easurement (mass/volume)on 11-21-2021 Creatinine [Mass/Vol] 0.42 mg/dL 0.55-1.02 [facility] Work Phone: [phone] Comment on above: The validity of the calculated GFR & GFRAA in patients over 70 years has not been determined. Clinical correlation is essential. Serum or plasma urea nitroge n measurement (mass/volume)on 11-21-2021 Urea nitrogen [Mass/Vol] 6 mg/dL 7-18 [facility] Work Phone: [phone] Thin prep Papanicolaou smear with manual screeningon 11-21-2021 Thin prep Papanicolaou smear with manual screening 4 5-15 [facility] Work Phone: [phone] Basophil percentageon 2021 Chloride [Moles/Vol] 101 mmol/L 98-107 [facility] Work Phone: [phone] Glucose [Mass/Vol] 94 mg/dL 74-106 [facility] Work Phone: [phone] Potassium [Moles/Vol] 4.1 mmol/L 3.5-5.1 [facility] Work Phone: [phone] Sodium [Moles/Vol] 136 mmol/L 136-145 [facility] Work Phone: [phone] WBC (Bld) [#/Vol] 10.6 10*3/uL 4.4-11.0 [facility] Work Phone: [phone] Blood erythrocytes count (nu mber/volume)on 11-14-2021 RBC (Bld) [#/Vol] 3.93 10*6/uL 4.2-5.4 [facility] Work Phone: [phone] Blood hemoglobin measurement (mass/volume)on 11-14-2021 Hemoglobin (Bld) [Mass/Vol] 11.6 g/dL 12.0-15.0 [facility] Work Phone: [phone] Blood platelet mean volumeon 11-14-2021 Platelet mean volume (Bld) [Entitic vol] 11.8 fL 6.2-12.0 [facility] Work Phone: [phone] Determination of erythrocyte mean corpuscular volume (MCV)on 11-14-2021 MCV (RBC) [Entitic vol] 96.2 fL 81-99 [facility] Work Phone: [phone] Hematocrit Auto (Bld) [Volum e fraction]on 11-14-2021 Hematocrit (Bld) [Volume fraction] 37.8 % 37-47 [facility] Work Phone: [phone] Laboratory - Chemistry and C hemistry - challengeon 11-14-2021 CO2 [Moles/Vol] 26.0 mmol/L 21.0-32.0 [facility] Work Phone: [phone] Urea nitrogen/Creatinine [Mass ratio] 11.9 mg/mg 10-20 [facility] Work Phone: [phone] Laboratory - Hematology and Cell countson 11-14-2021 Erythrocyte distribution width (RBC) [Entitic vol] 51.3 fL 35.1-43.9 [facility] Work Phone: [phone] Erythrocyte distribution width (RBC) [Ratio] 14.5 % 11.6-14.6 [facility] Work Phone: [phone] MCH (RBC) [Entitic mass] 29.5 pg 27.0-32.0 [facility] Work Phone: [phone] MCHC Auto (RBC) [Mass/Vol]on 11-14-2021 MCHC (RBC) [Mass/Vol] 30.7 g/dL 32-36 [facility] Work Phone: [phone] No Panel Informationon 11-14 Estimated GFR (MDRD) Amer 153 mL/min >60 [facility] Work Phone: [phone] Comment on above: GFR Calc Estimated GFR (MDRD) Non-Af Amer 126 mL/min >60 [facility] Work Phone: [phone] Comment on above: Non- GFR Calc Platelets bldon 11-14-2021 Platelets (Bld) [#/Vol] 473 10*3/uL 150-450 [facility] Work Phone: [phone] Serum or plasma calcium rajni urement (mass/volume)on 11-14-2021 Calcium [Mass/Vol] 9.7 mg/dL 8.5-10.1 [facility] Work Phone: Serum or plasma creatinine m easurement (mass/volume)on 11-14-2021 Creatinine [Mass/Vol] 0.50 mg/dL 0.55-1.02 [facility] Work Phone: Comment on above: The validity of the calculated GFR & GFRAA in patients over 70 years has not been determined. Clinical correlation is essential. Serum or plasma urea nitroge n measurement (mass/volume)on 11-14-2021 Urea nitrogen [Mass/Vol] 6 mg/dL 7-18 [facility] Work Phone: Thin prep Papanicolaou smear with manual screeningon 11-14-2021 Thin prep Papanicolaou smear with manual screening 9 5-15 [facility] Work Phone: Basophil percentageon 2021 Basophil percentage 0-5 SEEN /hpf 0-5 [facility] Work Phone: Bilirubin Test strip Ql (U)o n 11-09-2021 Bilirubin Ql (U) Negative Negative [facility] Work Phone: Ketones Test strip Ql (U)on 11-09-2021 Ketones Ql (U) Negative Negative [facility] Work Phone: Mucus LM Ql (Urine sed)on Mucus Ql (Urine sed) 0 SEEN /hpf [facility] Work Phone: Nitrite Test strip Ql (U)on 11-09-2021 Nitrite Ql (U) Positive Negative [facility] Work Phone: Protein Test strip Ql (U)on 11-09-2021 Protein Ql (U) Negative Negative [facility] Work Phone: Squamous epithelial cells de tection in urine sediment by light microscopyon 11-09-2021 Epithelial cells.squamous LM Ql (Urine sed) 0-5 SEEN /hpf 5-10 [facility] Work Phone: Urine blood detectionon 07- RBC Ql (U) 10 /ul Negative [facility] Work Phone: RBC Ql (U) 0 SEEN /hpf 0-5 [facility] Work Phone: Urine clarityon 11-09-2021 Clarity (U) Clear Clear [facility] Work Phone: Urine color determinationon 11-09-2021 Color (U) Yellow Yellow [facility] Work Phone: Urine glucose detectionon Glucose Ql (U) Normal mg/dl Normal [facility] Work Phone: Urine leukocyte esterase det ection by dipstickon 11-09-2021 Leukocyte esterase Test strip Ql (U) 500 /ul Negative [facility] Work Phone: Urine pHon 11-09-2021 pH (U) 7.0 [pH] 5.0 - 8.0 [facility] Work Phone: Urine sediment bacteria coun t by microscopy (number/high power field)on 11-09-2021 Bacteria LM.HPF (Urine sed) [#/Area] 0 /[HPF] None Seen [facility] Work Phone: Urine specific gravity measu rementon 11-09-2021 Specific gravity (U) [Rel density] 1.010 1.002-1.030 [facility] Work Phone: Urobilinogen Auto test strip Ql (U)on 11-09-2021 Urobilinogen Ql (U) Normal mg/dl Normal [facility] Work Phone: Basophil percentageon 2021 Chloride [Moles/Vol] 102 mmol/L 98-107 [facility] Work Phone: Glucose [Mass/Vol] 113 mg/dL 74-106 [facility] Work Phone: Comment on above: Fasting Glucose resu lt from 100 to 125 mg/dL suggests IMPAIRED HOMEOSTASIS per A.D.A. criteria. Potassium [Moles/Vol] 3.4 mmol/L 3.5-5.1 [facility] Work Phone: Sodium [Moles/Vol] 137 mmol/L 136-145 [facility] Work Phone: WBC (Bld) [#/Vol] 9.7 10*3/uL 4.4-11.0 [facility] Work [facility]: Blood erythrocytes count (nu mber/volume)on 11-07-2021 RBC (Bld) [#/Vol] 3.32 10*6/uL 4.2-5.4 [facility]: [phone] Blood hemoglobin measurement (mass/volume)on 11-07-2021 Hemoglobin (Bld) [Mass/Vol] 9.9 g/dL 12.0-15.0 [facility] Work Phone: [phone] Blood platelet mean volumeon 11-07-2021 Platelet mean volume (Bld) [Entitic vol] 10.3 fL 6.2-12.0 [facility] Work Phone: [phone] Determination of erythrocyte mean corpuscular volume (MCV)on 11-07-2021 MCV (RBC) [Entitic vol] 94.9 fL 81-99 [facility] Work Phone: [phone] Hematocrit Auto (Bld) [Volum e fraction]on 11-07-2021 Hematocrit (Bld) [Volume fraction] 31.5 % 37-47 [facility] Work Phone: Laboratory - Chemistry and C hemistry - challengeon 11-07-2021 CO2 [Moles/Vol] 29.0 mmol/L 21.0-32.0 [facility] Work Phone: [phone] Urea nitrogen/Creatinine [Mass ratio] 17.7 mg/mg 10-20 [facility] Work Phone: [phone] Laboratory - Hematology and Cell countson 11-07-2021 Erythrocyte distribution width (RBC) [Entitic vol] 49.9 fL 35.1-43.9 [facility] Work Phone: [phone] Erythrocyte distribution width (RBC) [Ratio] 14.2 % 11.6-14.6 [facility] Work Phone: [phone] MCH (RBC) [Entitic mass] 29.8 pg 27.0-32.0 [facility] Work Phone: MCHC Auto (RBC) [Mass/Vol]on 11-07-2021 MCHC (RBC) [Mass/Vol] 31.4 g/dL 32-36 [facility] Work Phone: No Panel Informationon 11-07 Estimated GFR (MDRD) Amer 203 mL/min >60 [facility] Work Phone: Comment on above: GFR Calc Estimated GFR (MDRD) Non-Af Amer 168 mL/min >60 [facility] Work Phone: Comment on above: Non- GFR Calc Platelets bldon 11-07-2021 Platelets (Bld) [#/Vol] 357 10*3/uL 150-450 [facility] Work Phone: Serum or plasma calcium rajni urement (mass/volume)on 11-07-2021 Calcium [Mass/Vol] 8.8 mg/dL 8.5-10.1 [facility] Work Phone: Serum or plasma creatinine m easurement (mass/volume)on 11-07-2021 Creatinine [Mass/Vol] 0.40 mg/dL 0.55-1.02 [facility] Work Phone: Comment on above: The validity of the calculated GFR & GFRAA in patients over 70 years has not been determined. Clinical correlation is essential. Serum or plasma urea nitroge n measurement (mass/volume)on 11-07-2021 Urea nitrogen [Mass/Vol] 7 mg/dL 7-18 [facility] Work Phone: Thin prep Papanicolaou smear with manual screeningon 11-07-2021 Thin prep Papanicolaou smear with manual screening 6 5-15 [facility] Work Phone: CNOVon 11-03-2021 CNOV Normal [facility] CNNURSEon 11-02-2021 CNNURSE Normal [facility] XR CHEST 2V FRONTAL/LATon XR CHEST 2V FRONTAL/LAT Normal A [facility] Basophil percentageon 2021 Chloride [Moles/Vol] 99 mmol/L 98-107 [facility] Work Phone: Glucose [Mass/Vol] 107 mg/dL 74-106 [facility] Work Phone: Comment on above: Fasting Glucose resu lt from 100 to 125 mg/dL suggests IMPAIRED HOMEOSTASIS per A.D.A. criteria. Potassium [Moles/Vol] 3.5 mmol/L 3.5-5.1 [facility] Work Phone: Sodium [Moles/Vol] 135 mmol/L 136-145 [facility] Work Phone: [phone] WBC (Bld) [#/Vol] 12.1 10*3/uL 4.4-11.0 [facility] Work Phone: [phone] Blood erythrocytes count (nu mber/volume)on 10-31-2021 RBC (Bld) [#/Vol] 3.12 10*6/uL 4.2-5.4 [facility] Work Phone: Blood hemoglobin measurement (mass/volume)on 10-31-2021 Hemoglobin (Bld) [Mass/Vol] 9.3 g/dL 12.0-15.0 [facility] Work Phone: Blood platelet mean volumeon 10-31-2021 Platelet mean volume (Bld) [Entitic vol] 9.8 fL 6.2-12.0 [facility] Work Phone: [phone] Determination of erythrocyte mean corpuscular volume (MCV)on 10-31-2021 MCV (RBC) [Entitic vol] 96.2 fL 81-99 [facility] Work Phone: [phone] Hematocrit Auto (Bld) [Volum e fraction]on 10-31-2021 Hematocrit (Bld) [Volume fraction] 30.0 % 37-47 [facility] Work Phone: Laboratory - Chemistry and C hemistry - challengeon 10-31-2021 CO2 [Moles/Vol] 26.0 mmol/L 21.0-32.0 [facility] [facility] Work Phone: Urea nitrogen/Creatinine [Mass ratio] 14.1 mg/mg 10-20 [facility] Work Phone: [phone] Laboratory - Hematology and Cell countson 10-31-2021 Erythrocyte distribution width (RBC) [Entitic vol] 50.3 fL 35.1-43.9 [facility] Work Phone: Erythrocyte distribution width (RBC) [Ratio] 14.3 % 11.6-14.6 [facility] Work Phone: MCH (RBC) [Entitic mass] 29.8 pg 27.0-32.0 [facility] Work Phone: MCHC Auto (RBC) [Mass/Vol]on 10-31-2021 MCHC (RBC) [Mass/Vol] 31.0 g/dL 32-36 [facility] Work Phone: No Panel Informationon 10-31 Estimated GFR (MDRD) Amer 157 mL/min >60 [facility] Work Phone: Comment on above: GFR Calc Estimated GFR (MDRD) Non-Af Amer 129 mL/min >60 [facility] Work Phone: Comment on above: Non- GFR Calc Platelets bldon 10-31-2021 Platelets (Bld) [#/Vol] 459 10*3/uL 150-450 [facility] Work Phone: Serum or plasma calcium rajni urement (mass/volume)on 10-31-2021 Calcium [Mass/Vol] 7.8 mg/dL 8.5-10.1 [facility] Work Phone: [phone] Serum or plasma creatinine m easurement (mass/volume)on 10-31-2021 Creatinine [Mass/Vol] 0.50 mg/dL 0.55-1.02 [facility] Work Phone: Comment on above: The validity of the calculated GFR & GFRAA in patients over 70 years has not been determined. Clinical correlation is essential. Serum or plasma urea nitroge n measurement (mass/volume)on 10-31-2021 Urea nitrogen [Mass/Vol] 7 mg/dL 7-18 [facility] Work Phone: Thin prep Papanicolaou smear with manual screeningon 10-31-2021 Thin prep Papanicolaou smear with manual screening 10 5-15 [facility] Work Phone: CT BRAIN WO IVCONon 10-31-19 [facility] Basophil percentageon 2021 Chloride [Moles/Vol] 98 mmol/L 98-107 [facility] Work Phone: Glucose [Mass/Vol] 150 mg/dL 74-106 [facility] Work Phone: Comment on above: Fasting Glucose resu lt greater than or equal to 126 mg/dL suggests DIABETES MELLITUS per A.D.A. criteria. Potassium [Moles/Vol] 3.2 mmol/L 3.5-5.1 [facility] Work Phone: Sodium [Moles/Vol] 136 mmol/L 136-145 [facility] Work Phone: Laboratory - Chemistry and C hemistry - challengeon 10-27-2021 CO2 [Moles/Vol] 31.0 mmol/L 21.0-32.0 [facility] Work Phone: Urea nitrogen/Creatinine [Mass ratio] 7.4 mg/mg 10-20 [facility] Work Phone: No Panel Informationon 10-27 Estimated GFR (MDRD) Amer 143 mL/min >60 [facility] Work Phone: Comment on above: GFR Calc Estimated GFR (MDRD) Non-Af Amer 118 mL/min >60 [facility] Work Phone: Comment on above: Non- GFR Calc Serum or plasma calcium rajni urement (mass/volume)on 10-27-2021 Calcium [Mass/Vol] 7.1 mg/dL 8.5-10.1 [facility] Work Phone: Serum or plasma creatinine m easurement (mass/volume)on 10-27-2021 Creatinine [Mass/Vol] 0.54 mg/dL 0.55-1.02 [facility] Work Phone: Comment on above: The validity of the calculated GFR & GFRAA in patients over 70 years has not been determined. Clinical correlation is essential. Serum or plasma urea nitroge n measurement (mass/volume)on 10-27-2021 Urea nitrogen [Mass/Vol] 4 mg/dL 7-18 [facility] Work Phone: Thin prep Papanicolaou smear with manual screeningon 10-27-2021 Thin prep Papanicolaou smear with manual screening 7 5-15 [facility] Work Phone: Basophil percentageon 2021 Chloride [Moles/Vol] 95 mmol/L 98-107 [facility] Work Phone: [phone] Glucose [Mass/Vol] 90 mg/dL 74-106 [facility] Work Phone: [phone] Potassium [Moles/Vol] 3.4 mmol/L 3.5-5.1 [facility] Work Phone: Sodium [Moles/Vol] 130 mmol/L 136-145 [facility] Work Phone: [phone] WBC (Bld) [#/Vol] 12.7 10*3/uL 4.4-11.0 [facility] Work Phone: [phone] Blood erythrocytes count (nu mber/volume)on 10-24-2021 RBC (Bld) [#/Vol] 2.63 10*6/uL 4.2-5.4 [facility] Work Phone: [phone] Blood hemoglobin measurement (mass/volume)on 10-24-2021 Hemoglobin (Bld) [Mass/Vol] 8.3 g/dL 12.0-15.0 [facility] Work Phone: [phone] Blood platelet mean volumeon 10-24-2021 Platelet mean volume (Bld) [Entitic vol] 9.4 fL 6.2-12.0 [facility] Work Phone: Determination of erythrocyte mean corpuscular volume (MCV)on 10-24-2021 MCV (RBC) [Entitic vol] 93.9 fL 81-99 [facility] Work Phone: [phone] Hematocrit Auto (Bld) [Volum e fraction]on 10-24-2021 Hematocrit (Bld) [Volume fraction] 24.7 % 37-47 [facility] Work Phone: [phone] Laboratory - Chemistry and C hemistry - challengeon 10-24-2021 CO2 [Moles/Vol] 27.0 mmol/L 21.0-32.0 [facility] Work Phone: [phone] Urea nitrogen/Creatinine [Mass ratio] 25.4 mg/mg 10-20 [facility] Work Phone: [phone] Laboratory - Hematology and Cell countson 10-24-2021 Erythrocyte distribution width (RBC) [Entitic vol] 47.5 fL 35.1-43.9 [facility] Work Phone: [phone] Erythrocyte distribution width (RBC) [Ratio] 13.9 % 11.6-14.6 [facility] Work Phone: [phone] MCH (RBC) [Entitic mass] 31.6 pg 27.0-32.0 [facility] Work Phone: [phone] MCHC Auto (RBC) [Mass/Vol]on 10-24-2021 MCHC (RBC) [Mass/Vol] 33.6 g/dL 32-36 [facility] Work Phone: [phone] No Panel Informationon 10-24 Estimated GFR (MDRD) Amer 230 mL/min >60 [facility] Work Phone: [phone] Comment on above: GFR Calc Estimated GFR (MDRD) Non-Af Amer 190 mL/min >60 [facility] Work Phone: [phone] Comment on above: Non- GFR Calc Platelets bldon 10-24-2021 Platelets (Bld) [#/Vol] 529 10*3/uL 150-450 [facility] Work Phone: [phone] Serum or plasma calcium rajni urement (mass/volume)on 10-24-2021 Calcium [Mass/Vol] 7.9 mg/dL 8.5-10.1 [facility] Work Phone: Serum or plasma creatinine m easurement (mass/volume)on 10-24-2021 Creatinine [Mass/Vol] 0.35 mg/dL 0.55-1.02 [facility] Work Phone: Comment on above: The validity of the calculated GFR & GFRAA in patients over 70 years has not been determined. Clinical correlation is essential. Serum or plasma urea nitroge n measurement (mass/volume)on 10-24-2021 Urea nitrogen [Mass/Vol] 9 mg/dL 7-18 [facility] Work Phone: Thin prep Papanicolaou smear with manual screeningon 10-24-2021 Thin prep Papanicolaou smear with manual screening 8 5-15 [facility] Work Phone: CNPNon 10-20-2021 CNPN Normal [facility] ALLIED HEALTHon 10-17-2021 ALLIED HEALTH Normal [facility] Basic metabolic 2000 panelon 10-17-2021 Anion gap [Moles/Vol] 12 mmol/L Normal 9-18 [facility] Comment on above: Order Comment: Speci men Type: BLOOD SPECIMENOrdering Facility: [facility] Address: [address] [place] [address] Performed By: #### 2 4321-2 ####[facility] LABORATORYCLIA [id number] [place] [address] [place] Calcium [Mass/Vol] 6.5 mg/dL Low 8.5-10.2 [facility] Comment on above: Order Comment: Speci men Type: BLOOD SPECIMENOrdering Facility: [facility] Address: [address] [place] [address] Performed By: #### 2 4321-2 ####[facility] LABORATORYCLIA [id number] [place] [address] [place] Chloride [Moles/Vol] 95 mmol/L Low 97-105 [facility] Comment on above: Order Comment: Speci men Type: BLOOD SPECIMENOrdering Facility: [facility] Address: [address] [place] [address] Performed By: #### 2 4321-2 ####[facility] LABORATORYCLIA [id number] [address] [place] CO2 [Moles/Vol] 25 mmol/L Normal 22-30 [facility] Comment on above: Order Comment: Speci men Type: BLOOD SPECIMENOrdering Facility: [facility] Address: [address] [place] [address] Performed By: #### 2 4321-2 ####[facility] LABORATORYCLIA [id number] [address] [place] Creatinine [Mass/Vol] 0.44 mg/dL Low 0.58-0.96 [facility] Comment on above: Order Comment: Speci men Type: BLOOD SPECIMENOrdering Facility: [facility] Address: [address] [place] [address] Performed By: #### 2 4321-2 ####[facility] LABORATORYCLIA [id number] [address] ESTIMATED GLOMERULAR FILTRATION RATE 102 mL/min/1.73m??? Normal >=60 [facility] Comment on above: Order Comment: Speci men Type: BLOOD SPECIMENOrdering Facility: [facility] Address: [address] [place] [address] Result Comment: Lulu mated Glomerular Filtration Rate [...] actual GFR. Performed By: #### 2 4321-2 ####[facility] LABORATORYCLIA [id number] [address] [place] Glucose [Mass/Vol] 122 mg/dL High 74-99 [facility] Comment on above: Order Comment: Speci men Type: BLOOD SPECIMENOrdering Facility: [facility] Address: [address] Result Comment: The [place] [employer] (ADA) provides guidance for cutoff [...] Standards of Medical Care in Diabetes 2016, [place] [employer]. Diabetes Care. 2016.39(Suppl 1). Performed By: #### 2 4321-2 ####[facility] LABORATORYCLIA [id number] [place] [address] [place] Potassium [Moles/Vol] 3.7 mmol/L Normal 3.7-5.1 [facility] Comment on above: Order Comment: Sharath men Type: BLOOD SPECIMENOrdering Facility: [facility] Address: [address] [place] [address] Performed By: #### 2 4321-2 ####[facility] LABORATORYCLIA [id number] [place] [address] [place] Sodium [Moles/Vol] 132 mmol/L Low 136-144 [facility] Comment on above: Order Comment: Speci men Type: BLOOD SPECIMENOrdering Facility: [facility] Address: [address] Performed By: #### 2 4321-2 ####[facility] LABORATORYCLIA [id number] [place] [address] [place] Urea nitrogen [Mass/Vol] 10 mg/dL Normal 7-21 [facility] Comment on above: Order Comment: Speci men Type: BLOOD SPECIMENOrdering Facility: [facility] Address: [address] Performed By: #### 2 4321-2 ####[facility] LABORATORYCLIA [id number] [address] CASE MANAGEMon 10-17-2021 CASE MANAGEM Normal [facility] CASE MANAGEM Normal [facility] CBC panel Auto (Bld)on 10-17 Erythrocyte distribution width (RBC) [Ratio] 13.6 % Normal 11.5-15.0 [facility] Comment on above: Order Comment: Speci men Type: BLOOD SPECIMENOrdering Facility: [facility] Address: [address] [place] [address] Performed By: #### 5 8410-2 ####[facility] LABORATORYCLIA [id number] [address] Hematocrit (Bld) [Volume fraction] 25.2 % Low 36.0-46.0 [facility] Comment on above: Order Comment: Speci men Type: BLOOD SPECIMENOrdering Facility: [facility] Address: [address] [place] [address] Performed By: #### 5 8410-2 ####[facility] LABORATORYCLIA [id number] [address] Hemoglobin (Bld) [Mass/Vol] 8.6 g/dL Low 11.5-15.5 [facility] Comment on above: Order Comment: Speci men Type: BLOOD SPECIMENOrdering Facility: [facility] Address: [address] [place] [address] Performed By: #### 5 8410-2 ####[facility] LABORATORYCLIA [id number] [address] STATES [facility] MCH (RBC) [Entitic mass] 32.2 pg Normal 26.0-34.0 [facility] Comment on above: Order Comment: Speci men Type: BLOOD SPECIMENOrdering Facility: [facility] Address: [facility] [place] [address] Performed By: #### 5 8410-2 ####[facility] LABORATORYCLIA [id number] [address] STATES OF [facility] MCHC (RBC) [Mass/Vol] 34.1 g/dL Normal 30.5-36.0 [facility] Comment on above: Order Comment: Speci men Type: BLOOD SPECIMENOrdering Facility: [facility] Address: [address] [place] [address] Performed By: #### 5 8410-2 ####[facility] LABORATORYCLIA [id number] [address] [place] MCV (RBC) [Entitic vol] 94.4 fL Normal 80.0-100.0 [facility] Comment on above: Order Comment: Speci men Type: BLOOD SPECIMENOrdering Facility: [facility] Address: [address] [place] [address] Performed By: #### 5 8410-2 ####[facility] LABORATORYCLIA [id number] [address] Nucleated RBC (Bld) [#/Vol] 10*3/uL Normal <0.01 [facility] Comment on above: Order Comment: Speci men Type: BLOOD SPECIMENOrdering Facility: [facility] Address: [address] [place] [address] Performed By: #### 5 8410-2 ####[facility] LABORATORYCLIA [id number] [address] [place] Platelet mean volume (Bld) [Entitic vol] 8.9 fL Low 9.0-12.7 [facility] Comment on above: Order Comment: Speci men Type: BLOOD SPECIMENOrdering Facility: [facility] Address: [address] [place] [address] Performed By: #### 5 8410-2 ####[facility] LABORATORYCLIA [id number] [address] [place] Platelets (Bld) [#/Vol] 519 10*3/uL High 150-400 [facility] Comment on above: Order Comment: Speci men Type: BLOOD SPECIMENOrdering Facility: [facility] Address: [address] [place] [address] Performed By: #### 5 8410-2 ####[facility] LABORATORYCLIA [id number] [address] OF [facility] RBC (Bld) [#/Vol] 2.67 10*6/uL Low 3.90-5.20 [facility] Comment on above: Order Comment: Speci men Type: BLOOD SPECIMENOrdering Facility: [facility] Address: [address] [place] [address] Performed By: #### 5 8410-2 ####[facility] LABORATORYCLIA [id number] [address] WBC (Bld) [#/Vol] 19.03 10*3/uL High 3.70-11.00 [facility] Comment on above: Order Comment: Speci men Type: BLOOD SPECIMENOrdering Facility: [facility] Address: [address] [place] [address] Performed By: #### 5 8410-2 ####[facility] LABORATORYCLIA [id number] [address] CNDSon 10-17-2021 CNDS Normal [facility] SARS-CoV-2 RNA Resp Ql LEONA+p robeon 10-17-2021 SARS-CoV-2 (COVID-19) RNA LEONA+probe Ql (Resp) COVID 19 RESULT: SARS-CoV-2 (Agent of COVID-19) Not Detected by RT-PCR or equivalent method. This test has been authorized by FDA under an Emergency Use Authorization (EUA). Normal [facility] Comment on above: Performed By: #### 9 4500-6 ####[facility] LABORATORYCLIA [id number] [address] XR CHEST 1V FRONTALon 2021 XR CHEST 1V FRONTAL Normal [facility] Basic metabolic 2000 panelon 10-16-2021 Anion gap [Moles/Vol] 11 mmol/L Normal 9-18 [facility] Comment on above: Order Comment: Speci men Type: BLOOD SPECIMENOrdering Facility: [facility] Address: [address] [place] [address] Performed By: #### 2 4321-2 ####[facility] LABORATORYCLIA [id number] [place] [address] [place] Calcium [Mass/Vol] 7.0 mg/dL Low 8.5-10.2 [facility] Comment on above: Order Comment: Speci men Type: BLOOD SPECIMENOrdering Facility: [facility] Address: [address] [place] [address] Performed By: #### 2 4321-2 ####[facility] LABORATORYCLIA [id number] [address] [place] Chloride [Moles/Vol] 95 mmol/L Low 97-105 [facility] Comment on above: Order Comment: Speci men Type: BLOOD SPECIMENOrdering Facility: [facility] Address: [address] [place] [address] Performed By: #### 2 4321-2 ####[facility] LABORATORYCLIA [id number] [address] [place] CO2 [Moles/Vol] 26 mmol/L Normal 22-30 [facility] Comment on above: Order Comment: Speci men Type: BLOOD SPECIMENOrdering Facility: [facility] Address: [address] [place] [address] Performed By: #### 2 4321-2 ####[facility] LABORATORYCLIA [id number] [address] [place] Creatinine [Mass/Vol] 0.38 mg/dL Low 0.58-0.96 [facility] Comment on above: Order Comment: Speci men Type: BLOOD SPECIMENOrdering Facility: [facility] Address: [address] [place] [address] Performed By: #### 2 4321-2 ####[facility] LABORATORYCLIA [id number] [place] [address] [place] ESTIMATED GLOMERULAR FILTRATION RATE 105 mL/min/1.73m??? Normal >=60 [facility] Comment on above: Order Comment: Sharath lozano Type: BLOOD SPECIMENOrdering Facility: [facility] Address: [address] [place] [address] Result Comment: Lulu mated Glomerular Filtration Rate [...] actual GFR. Performed By: #### 2 4321-2 ####[facility] LABORATORYCLIA [id number] [place] [address] [place] Glucose [Mass/Vol] 120 mg/dL High 74-99 [facility] Comment on above: Order Comment: Sharath lozano Type: BLOOD SPECIMENOrdering Facility: [facility] Address: [address] [place] [address] Result Comment: The [place] [employer] (ADA) provides guidance for cutoff [...] Standards of Medical Care in Diabetes 2016, [place] [employer]. Diabetes Care. 2016.39(Suppl 1). Performed By: #### 2 4321-2 ####[facility] LABORATORYCLIA [id number] [place] [address] [place] Potassium [Moles/Vol] 3.6 mmol/L Low 3.7-5.1 [facility] Comment on above: Order Comment: Sharath lozano Type: BLOOD SPECIMENOrdering Facility: [facility] Address: [address] [place] [address] Performed By: #### 2 4321-2 ####[facility] LABORATORYCLIA [id number] [address] STATES [facility] Sodium [Moles/Vol] 132 mmol/L Low 136-144 [facility] Comment on above: Order Comment: Speci men Type: BLOOD SPECIMENOrdering Facility: [facility] Address: [address] [place] [address] Performed By: #### 2 4321-2 ####[facility] LABORATORYCLIA [id number] [address] [place] Urea nitrogen [Mass/Vol] 11 mg/dL Normal 7-21 [facility] Comment on above: Order Comment: Speci men Type: BLOOD SPECIMENOrdering Facility: [facility] Address: [address] [place] [address] Performed By: #### 2 4321-2 ####[facility] LABORATORYCLIA [id number] [address] [place] CASE MANAGEMon 10-16-2021 CASE MANAGEM Normal [facility] CASE MANAGEM Normal [facility] CBC panel Auto (Bld)on 10-16 Erythrocyte distribution width (RBC) [Ratio] 13.6 % Normal 11.5-15.0 [facility] Comment on above: Order Comment: Speci men Type: BLOOD SPECIMENOrdering Facility: [facility] Address: [address] [place] [address] Performed By: #### 5 8410-2 ####[facility] LABORATORYCLIA [id number] [address] [place] Hematocrit (Bld) [Volume fraction] 25.6 % Low 36.0-46.0 [facility] Comment on above: Order Comment: Speci men Type: BLOOD SPECIMENOrdering Facility: [facility] Address: [address] [place] [address] Performed By: #### 5 8410-2 ####[facility] LABORATORYCLIA [id number] [address] OF [facility] Hemoglobin (Bld) [Mass/Vol] 8.7 g/dL Low 11.5-15.5 [facility] Comment on above: Order Comment: Speci men Type: BLOOD SPECIMENOrdering Facility: [facility] Address: [address] [place] [address] Performed By: #### 5 8410-2 ####[facility] LABORATORYCLIA [id number] [address] MCH (RBC) [Entitic mass] 32.0 pg Normal 26.0-34.0 [facility] Comment on above: Order Comment: Speci men Type: BLOOD SPECIMENOrdering Facility: [facility] Address: [address] [place] [address] Performed By: #### 5 8410-2 ####[facility] LABORATORYCLIA [id number] [address] MCHC (RBC) [Mass/Vol] 34.0 g/dL Normal 30.5-36.0 [facility] Comment on above: Order Comment: Speci men Type: BLOOD SPECIMENOrdering Facility: [facility] Address: [address] [place] [address] Performed By: #### 5 8410-2 ####[facility] LABORATORYCLIA [id number] [address] MCV (RBC) [Entitic vol] 94.1 fL Normal 80.0-100.0 [facility] Comment on above: Order Comment: Speci men Type: BLOOD SPECIMENOrdering Facility: [facility] Address: [address] [place] [address] Performed By: #### 5 8410-2 ####[facility] LABORATORYCLIA [id number] [address] Nucleated RBC (Bld) [#/Vol] 10*3/uL Normal <0.01 [facility] Comment on above: Order Comment: Speci men Type: BLOOD SPECIMENOrdering Facility: [facility] Address: [address] [place] [address] Performed By: #### 5 8410-2 ####[facility] LABORATORYCLIA [id number] [address] Platelet mean volume (Bld) [Entitic vol] 8.8 fL Low 9.0-12.7 [facility] Comment on above: Order Comment: Speci men Type: BLOOD SPECIMENOrdering Facility: [facility] Address: [address] [place] [address] Performed By: #### 5 8410-2 ####[facility] LABORATORYCLIA [id number] [address] [place] Platelets (Bld) [#/Vol] 465 10*3/uL High 150-400 [facility] Comment on above: Order Comment: Speci men Type: BLOOD SPECIMENOrdering Facility: [facility] Address: [address] [place] [address] Performed By: #### 5 8410-2 ####[facility] LABORATORYCLIA [id number] [address] [place] RBC (Bld) [#/Vol] 2.72 10*6/uL Low 3.90-5.20 [facility] Comment on above: Order Comment: Speci men Type: BLOOD SPECIMENOrdering Facility: [facility] Address: [address] [place] [address] Performed By: #### 5 8410-2 ####[facility] LABORATORYCLIA [id number] [address] [place] WBC (Bld) [#/Vol] 17.77 10*3/uL High 3.70-11.00 [facility] [facility] Comment on above: Order Comment: Speci men Type: BLOOD SPECIMENOrdering Facility: [facility] Address: [address] [place] [address] Performed By: #### 5 8410-2 ####[facility] LABORATORYCLIA [id number] [place] [address] [place] CONSULT PROGon 10-16-2021 CONSULT PROG Normal [facility] THERAPY NTon 10-16-2021 THERAPY NT Normal [facility] THERAPY NT Normal [facility] Basic metabolic 2000 panelon 10-15-2021 Anion gap [Moles/Vol] 11 mmol/L Normal 9-18 [facility] Comment on above: Order Comment: Speci men Type: BLOOD SPECIMENOrdering Facility: [facility] Address: [address] [place] [address] Performed By: #### 2 4321-2 ####[facility] LABORATORYCLIA [id number] [place] [address] [place] Calcium [Mass/Vol] 6.8 mg/dL Low 8.5-10.2 [facility] Comment on above: Order Comment: Speci men Type: BLOOD SPECIMENOrdering Facility: [facility] Address: [address] [place] [address] Performed By: #### 2 4321-2 ####[facility] LABORATORYCLIA [id number] [place] [address] [place] Chloride [Moles/Vol] 97 mmol/L Normal 97-105 [facility] Comment on above: Order Comment: Speci men Type: BLOOD SPECIMENOrdering Facility: [facility] Address: [address] [place] [address] Performed By: #### 2 4321-2 ####[facility] LABORATORYCLIA [id number] [place] [address] [place] CO2 [Moles/Vol] 26 mmol/L Normal 22-30 [facility] Comment on above: Order Comment: Speci men Type: BLOOD SPECIMENOrdering Facility: [facility] Address: [address] [place] [address] Performed By: #### 2 4321-2 ####[facility] LABORATORYCLIA [id number] [place] [address] [place] Creatinine [Mass/Vol] 0.44 mg/dL Low 0.58-0.96 [facility] Comment on above: Order Comment: Cathymoe lozano Type: BLOOD SPECIMENOrdering Facility: [facility] Address: [address] [address] Performed By: #### 2 4321-2 ####[facility] LABORATORYCLIA [id number] [address] OF [facility] ESTIMATED GLOMERULAR FILTRATION RATE 102 mL/min/1.73m??? Normal >=60 [facility] Comment on above: Order Comment: Sharath lozano Type: BLOOD SPECIMENOrdering Facility: [facility] Address: [address] Result Comment: Lulu mated Glomerular Filtration [...] actual GFR. Performed By: #### 2 4321-2 ####[facility] LABORATORYCLIA [id number] [place] [address] [place] Glucose [Mass/Vol] 111 mg/dL High 74-99 [facility] Comment on above: Order Comment: Sharath marta Type: BLOOD SPECIMENOrdering Facility: [facility] Address: [address] [place] [address] Result Comment: The [place] [employer] (ADA) provides guidance for cutoff [...] Standards of Medical Care in Diabetes 2016, [place] [employer]. Diabetes Care. 2016.39(Suppl 1). Performed By: #### 2 4321-2 ####[facility] LABORATORYCLIA [id number] [address] [place] Potassium [Moles/Vol] 3.5 mmol/L Low 3.7-5.1 [facility] Comment on above: Order Comment: Speci men Type: BLOOD SPECIMENOrdering Facility: [facility] Address: [address] [place] [address] Performed By: #### 2 4321-2 ####[facility] LABORATORYCLIA [id number] [address] [place] Sodium [Moles/Vol] 134 mmol/L Low 136-144 [facility] Comment on above: Order Comment: Speci men Type: BLOOD SPECIMENOrdering Facility: [facility] Address: [address] [place] [address] Performed By: #### 2 4321-2 ####[facility] LABORATORYCLIA [id number] [address] Urea nitrogen [Mass/Vol] 11 mg/dL Normal 7-21 [facility] Comment on above: Order Comment: Speci men Type: BLOOD SPECIMENOrdering Facility: [facility] Address: [address] [place] [address] Performed By: #### 2 4321-2 ####[facility] LABORATORYCLIA [id number] [address] OF [facility] CBC panel Auto (Bld)on 10-15 Erythrocyte distribution width (RBC) [Ratio] 13.6 % Normal 11.5-15.0 [facility] Comment on above: Order Comment: Speci men Type: BLOOD SPECIMENOrdering Facility: [facility] Address: [address] [place] [address] Performed By: #### 5 8410-2 ####[facility] LABORATORYCLIA [id number] [address] STATES OF [facility] Hematocrit (Bld) [Volume fraction] 23.5 % Low 36.0-46.0 [facility] Comment on above: Order Comment: Speci men Type: BLOOD SPECIMENOrdering Facility: [facility] Address: [address] [place] [address] Performed By: #### 5 8410-2 ####[facility] LABORATORYCLIA [id number] [address] STATES OF [facility] Hemoglobin (Bld) [Mass/Vol] 7.9 g/dL Low 11.5-15.5 [facility] Comment on above: Order Comment: Speci men Type: BLOOD SPECIMENOrdering Facility: [facility] Address: [address] [place] [address] Performed By: #### 5 8410-2 ####[facility] LABORATORYCLIA [id number] [address] [place] MCH (RBC) [Entitic mass] 32.6 pg Normal 26.0-34.0 [facility] Comment on above: Order Comment: Speci men Type: BLOOD SPECIMENOrdering Facility: [facility] Address: [address] [place] [address] Performed By: #### 5 8410-2 ####[facility] LABORATORYCLIA [id number] [address] [place] MCHC (RBC) [Mass/Vol] 33.6 g/dL Normal 30.5-36.0 [facility] Comment on above: Order Comment: Speci men Type: BLOOD SPECIMENOrdering Facility: [facility] Address: [address] [place] [address] Performed By: #### 5 8410-2 ####[facility] LABORATORYCLIA [id number] [address] [place] MCV (RBC) [Entitic vol] 97.1 fL Normal 80.0-100.0 [facility] Comment on above: Order Comment: Speci men Type: BLOOD SPECIMENOrdering Facility: [facility] Address: [address] [place] [address] Performed By: #### 5 8410-2 ####[facility] LABORATORYCLIA [id number] [address] [place] Nucleated RBC (Bld) [#/Vol] 10*3/uL Normal <0.01 [facility] Comment on above: Order Comment: Speci men Type: BLOOD SPECIMENOrdering Facility: [facility] Address: [address] [place] [address] Performed By: #### 5 8410-2 ####[facility] LABORATORYCLIA [id number] [address] [place] Platelet mean volume (Bld) [Entitic vol] 8.9 fL Low 9.0-12.7 [facility] Comment on above: Order Comment: Speci men Type: BLOOD SPECIMENOrdering Facility: [facility] Address: [address] [place] [address] Performed By: #### 5 8410-2 ####[facility] LABORATORYCLIA [id number] [address] [place] Platelets (Bld) [#/Vol] 388 10*3/uL Normal 150-400 [facility] Comment on above: Order Comment: Speci men Type: BLOOD SPECIMENOrdering Facility: [facility] Address: [address] [place] [address] Performed By: #### 5 8410-2 ####[facility] LABORATORYCLIA [id number] [address] [place] RBC (Bld) [#/Vol] 2.42 10*6/uL Low 3.90-5.20 [facility] Comment on above: Order Comment: Speci men Type: BLOOD SPECIMENOrdering Facility: [facility] Address: [address] [place] [address] Performed By: #### 5 8410-2 ####[facility] LABORATORYCLIA [id number] [address] [place] WBC (Bld) [#/Vol] 16.58 10*3/uL High 3.70-11.00 [facility] Comment on above: Order Comment: Speci men Type: BLOOD SPECIMENOrdering Facility: [facility] Address: [address] [place] [address] Performed By: #### 5 8410-2 ####[facility] LABORATORYCLIA [id number] [address] THERAPY NTon 10-15-2021 THERAPY NT Normal [facility] Urinalysis complete panel (U )on 10-15-2021 Bacteria LM.HPF (Urine sed) [#/Area] Few Abnormal None Seen [facility] Comment on above: Order Comment: Speci men Type: URINE SPECIMENOrdering Facility: [facility] Address: [address] [place] [address] Performed By: #### 2 4356-8 ####[facility] LABORATORYCLIA [id number] [address] Bilirubin Ql (U) Negative Normal Negative [facility] Comment on above: Order Comment: Speci men Type: URINE SPECIMENOrdering Facility: [facility] Address: [address] [place] [address] Performed By: #### 2 4356-8 ####[facility] LABORATORYCLIA [id number] [address] Clarity (Unsp spec) Clear Normal Clear [facility] Comment on above: Order Comment: Speci men Type: URINE SPECIMENOrdering Facility: [facility] Address: [address] [place] [address] Performed By: #### 2 4356-8 ####[facility] LABORATORYCLIA [id number] [address] Color (U) Light Yellow Normal yellow [facility] Comment on above: Order Comment: Speci men Type: URINE SPECIMENOrdering Facility: [facility] Address: [address] [place] [address] Performed By: #### 2 4356-8 ####[facility] LABORATORYCLIA [id number] [address] Epithelial cells LM.HPF (Urine sed) [#/Area] Few Normal [facility] Comment on above: Order Comment: Speci men Type: URINE SPECIMENOrdering Facility: [facility] Address: [address] [address] Result Comment: Few Performed By: #### 2 4356-8 ####[facility] LABORATORYCLIA [id number] [address] Glucose Test strip (U) [Mass/Vol] Negative Normal Negative [facility] Comment on above: Order Comment: Speci men Type: URINE SPECIMENOrdering Facility: [facility] Address: [address] [place] [address] Performed By: #### 2 4356-8 ####[facility] LABORATORYCLIA [id number] [address] Hemoglobin Ql (U) Negative Normal Negative [facility] Comment on above: Order Comment: Speci men Type: URINE SPECIMENOrdering Facility: [facility] Address: [address] [place] [address] Performed By: #### 2 4356-8 ####[facility] LABORATORYCLIA [id number] [address] Ketones Ql (U) Negative Normal Negative [facility] Comment on above: Order Comment: Speci men Type: URINE SPECIMENOrdering Facility: [facility] Address: [facility] [address] Performed By: #### 2 4356-8 ####[facility] LABORATORYCLIA [id number] [address] Leukocyte esterase Test strip Ql (U) 500 Karson/mL Abnormal Negative [facility] Comment on above: Order Comment: Speci men Type: URINE SPECIMENOrdering Facility: [facility] Address: [address] [address] Performed By: #### 2 4356-8 ####[facility] LABORATORYCLIA [id number] [address] [place] Nitrite Ql (U) 1+ Abnormal Negative [facility] Comment on above: Order Comment: Speci men Type: URINE SPECIMENOrdering Facility: [facility] Address: [address] [place] [address] Performed By: #### 2 4356-8 ####[facility] LABORATORYCLIA [id number] [address] [place] pH (U) 7.5 [pH] Normal 5.0-8.0 [facility] Comment on above: Order Comment: Speci men Type: URINE SPECIMENOrdering Facility: [facility] Address: [address] [place] [address] Performed By: #### 2 4356-8 ####[facility] LABORATORYCLIA [id number] [address] Protein (U) [Mass/Vol] Negative Normal Negative [facility] Comment on above: Order Comment: Speci men Type: URINE SPECIMENOrdering Facility: [facility] Address: [address] [place] [address] Performed By: #### 2 4356-8 ####[facility] LABORATORYCLIA [id number] [address] STATES [facility] RBC LM.HPF (Urine sed) [#/Area] 6-10 /HPF Abnormal 0-3 /HPF [facility] Comment on above: Order Comment: Speci men Type: URINE SPECIMENOrdering Facility: [facility] Address: [address] [place] [address] Performed By: #### 2 4356-8 ####[facility] LABORATORYCLIA [id number] [address] STATES [facility] Specific gravity (U) [Rel density] 1.007 Normal 1.005-1.030 [facility] Comment on above: Order Comment: Speci men Type: URINE SPECIMENOrdering Facility: [facility] Address: [address] [place] [address] Performed By: #### 2 4356-8 ####[facility] LABORATORYCLIA [id number] [address] Urobilinogen Ql (U) Normal Normal Negative [facility] Comment on above: Order Comment: Speci men Type: URINE SPECIMENOrdering Facility: [facility] Address: [address] [place] [address] Performed By: #### 2 4356-8 ####[facility] LABORATORYCLIA [id number] [address] [place] WBC LM.HPF (Urine sed) [#/Area] /[HPF] Abnormal 0-5 /HPF [facility] Comment on above: Order Comment: Speci men Type: URINE SPECIMENOrdering Facility: [facility] Address: [address] [place] [address] Performed By: #### 2 4356-8 ####[facility] LABORATORYCLIA [id number] [address] [place] Urinalysis complete pnl Uron 10-15-2021 Urinalysis complete panel (U) Abnormal [facility] Comment on above: Order Comment: Speci men Type: URINE SPECIMENOrdering Facility: [facility] Address: [address] [place] [address] Performed By: #### 2 4356-8 ####[facility] LABORATORYCLIA [id number] [address] [place] Basic metabolic 2000 panelon 10-14-2021 Anion gap [Moles/Vol] 11 mmol/L Normal 9-18 [facility] Comment on above: Order Comment: Speci men Type: BLOOD SPECIMENOrdering Facility: [facility] Address: [address] [place] [address] Performed By: #### 2 4321-2 ####[facility] LABORATORYCLIA [id number] [address] [place] Calcium [Mass/Vol] 7.1 mg/dL Low 8.5-10.2 [facility] Comment on above: Order Comment: Speci men Type: BLOOD SPECIMENOrdering Facility: [facility] Address: [address] [address] Performed By: #### 2 4321-2 ####[facility] LABORATORYCLIA [id number] [address] STATES OF [facility] Chloride [Moles/Vol] 100 mmol/L Normal 97-105 [facility] Comment on above: Order Comment: Speci men Type: BLOOD SPECIMENOrdering Facility: [facility] Address: [address] [place] [address] Performed By: #### 2 4321-2 ####[facility] LABORATORYCLIA [id number] [address] STATES OF [facility] CO2 [Moles/Vol] 25 mmol/L Normal 22-30 [facility] Comment on above: Order Comment: Speci men Type: BLOOD SPECIMENOrdering Facility: [facility] Address: [address] [place] [address] Performed By: #### 2 4321-2 ####[facility] LABORATORYCLIA [id number] [address] STATES [place] [facility] Creatinine [Mass/Vol] 0.44 mg/dL Low 0.58-0.96 [facility] Comment on above: Order Comment: Speci men Type: BLOOD SPECIMENOrdering Facility: [facility] Address: [address] [place] [address] Performed By: #### 2 4321-2 ####[facility] LABORATORYCLIA [id number] [address] ESTIMATED GLOMERULAR FILTRATION RATE 102 mL/min/1.73m??? Normal >=60 [facility] Comment on above: Order Comment: Speci men Type: BLOOD SPECIMENOrdering Facility: [facility] Address: [address] [place] [address] Result Comment: Lulu mated Glomerular Filtration Rate [...] actual GFR. Performed By: #### 2 4321-2 ####[facility] LABORATORYCLIA [id number] [place] [address] [place] Glucose [Mass/Vol] 116 mg/dL High 74-99 [facility] Comment on above: Order Comment: Sharath lozano Type: BLOOD SPECIMENOrdering Facility: [facility] Address: [address] [place] [address] Result Comment: The [place] [employer] (ADA) provides guidance for cutoff [...] Standards of Medical Care in Diabetes 2016, [place] [employer]. Diabetes Care. 2016.39(Suppl 1). Performed By: #### 2 4321-2 ####[facility] LABORATORYCLIA [id number] [place] [address] [place] Potassium [Moles/Vol] 3.8 mmol/L Normal 3.7-5.1 [facility] Comment on above: Order Comment: Sharath lozano Type: BLOOD SPECIMENOrdering Facility: [facility] Address: [address] [address] Performed By: #### 2 4321-2 ####[facility] LABORATORYCLIA [id number] [place] [address] [place] Sodium [Moles/Vol] 136 mmol/L Normal 136-144 [facility] Comment on above: Order Comment: Sharath lozano Type: BLOOD SPECIMENOrdering Facility: [facility] Address: [address] [address] Performed By: #### 2 4321-2 ####[facility] LABORATORYCLIA [id number] [address] STATES [facility] Urea nitrogen [Mass/Vol] 9 mg/dL Normal 7-21 [facility] Comment on above: Order Comment: Speci men Type: BLOOD SPECIMENOrdering Facility: [facility] Address: [address] [place] [address] Performed By: #### 2 4321-2 ####[facility] LABORATORYCLIA [id number] [address] CBC panel Auto (Bld)on 10-14 Erythrocyte distribution width (RBC) [Ratio] 13.7 % Normal 11.5-15.0 [facility] Comment on above: Order Comment: Speci men Type: BLOOD SPECIMENOrdering Facility: [facility] Address: [address] [place] [address] Performed By: #### 5 8410-2 ####[facility] LABORATORYCLIA [id number] [address] Hematocrit (Bld) [Volume fraction] 25.1 % Low 36.0-46.0 [facility] Comment on above: Order Comment: Speci men Type: BLOOD SPECIMENOrdering Facility: [facility] Address: [address] [place] [address] Performed By: #### 5 8410-2 ####[facility] LABORATORYCLIA [id number] [address] Hemoglobin (Bld) [Mass/Vol] 8.4 g/dL Low 11.5-15.5 [facility] Comment on above: Order Comment: Speci men Type: BLOOD SPECIMENOrdering Facility: [facility] Address: [address] [place] [address] Performed By: #### 5 8410-2 ####[facility] LABORATORYCLIA [id number] [address] [place] MCH (RBC) [Entitic mass] 32.3 pg Normal 26.0-34.0 [facility] Comment on above: Order Comment: Speci men Type: BLOOD SPECIMENOrdering Facility: [facility] Address: [address] [place] [address] Performed By: #### 5 8410-2 ####[facility] LABORATORYCLIA [id number] [address] MCHC (RBC) [Mass/Vol] 33.5 g/dL Normal 30.5-36.0 [facility] Comment on above: Order Comment: Speci men Type: BLOOD SPECIMENOrdering Facility: [facility] Address: [address] [place] [address] Performed By: #### 5 8410-2 ####[facility] LABORATORYCLIA [id number] [address] MCV (RBC) [Entitic vol] 96.5 fL Normal 80.0-100.0 [facility] Comment on above: Order Comment: Speci men Type: BLOOD SPECIMENOrdering Facility: [facility] Address: [address] [place] [address] Performed By: #### 5 8410-2 ####[facility] LABORATORYCLIA [id number] [address] Nucleated RBC (Bld) [#/Vol] 10*3/uL Normal <0.01 [facility] Comment on above: Order Comment: Speci men Type: BLOOD SPECIMENOrdering Facility: [facility] Address: [address] [place] [address] Performed By: #### 5 8410-2 ####[facility] LABORATORYCLIA [id number] [address] Platelet mean volume (Bld) [Entitic vol] 8.9 fL Low 9.0-12.7 [facility] Comment on above: Order Comment: Speci men Type: BLOOD SPECIMENOrdering Facility: [facility] Address: [address] [place] [address] Performed By: #### 5 8410-2 ####[facility] LABORATORYCLIA [id number] [address] Platelets (Bld) [#/Vol] 405 10*3/uL High 150-400 [facility] Comment on above: Order Comment: Speci men Type: BLOOD SPECIMENOrdering Facility: [facility] Address: [address] [place] [address] Performed By: #### 5 8410-2 ####[facility] LABORATORYCLIA [id number] [address] RBC (Bld) [#/Vol] 2.60 10*6/uL Low 3.90-5.20 [facility] Comment on above: Order Comment: Speci men Type: BLOOD SPECIMENOrdering Facility: [facility] Address: [address] [place] [address] Performed By: #### 5 8410-2 ####[facility] LABORATORYCLIA [id number] [address] WBC (Bld) [#/Vol] 16.86 10*3/uL High 3.70-11.00 [facility] Comment on above: Order Comment: Speci men Type: BLOOD SPECIMENOrdering Facility: [facility] Address: [address] [place] [address] Performed By: #### 5 8410-2 ####[facility] LABORATORYCLIA [id number] [address] TSH SerPl-aCncon 10-14-2021 TSH Qn 1.610 m[IU]/L Normal 0.270-4.200 [facility] Comment on above: Order Comment: Speci men Type: BLOOD SPECIMENOrdering Facility: [facility] Address: [address] [place] [address] Performed By: #### 3 016-3 ####[facility] LABORATORYCLIA [id number] [address] Vit B12 SerPl-mCncon 022 Cobalamin (Vitamin B12) [Mass/Vol] 1299 pg/mL High 232-1,245 [facility] Comment on above: Order Comment: Speci men Type: BLOOD SPECIMENOrdering Facility: [facility] Address: [address] [place] [address] Performed By: #### 2 132-9 ####[facility] LABORATORYCLIA [id number] [place] [address] [place] ALLIED HEALTHon 10-13-2021 ALLIED HEALTH Normal [facility] ALLIED HEALTH Normal [facility] ALLIED HEALTH Normal [facility] Basic metabolic 2000 panelon 10-13-2021 Anion gap [Moles/Vol] 11 mmol/L Normal 9-18 [facility] Comment on above: Order Comment: Speci men Type: BLOOD SPECIMENOrdering Facility: [facility] Address: [address] [place] [address] Performed By: #### 2 4321-2 ####[facility] LABORATORYCLIA [id number] [place] [address] [place] Calcium [Mass/Vol] 7.3 mg/dL Low 8.5-10.2 [facility] Comment on above: Order Comment: Speci men Type: BLOOD SPECIMENOrdering Facility: [facility] Address: [address] [place] [address] Performed By: #### 2 4321-2 ####[facility] LABORATORYCLIA [id number] [place] [address] [place] Chloride [Moles/Vol] 99 mmol/L Normal 97-105 [facility] Comment on above: Order Comment: Speci men Type: BLOOD SPECIMENOrdering Facility: [facility] Address: [address] [place] [address] Performed By: #### 2 4321-2 ####[facility] LABORATORYCLIA [id number] [place] [address] [place] CO2 [Moles/Vol] 24 mmol/L Normal 22-30 [facility] Comment on above: Order Comment: Speci men Type: BLOOD SPECIMENOrdering Facility: [facility] Address: [address] [address] Performed By: #### 2 4321-2 ####[facility] LABORATORYCLIA [id number] [address] OF [facility] Creatinine [Mass/Vol] 0.46 mg/dL Low 0.58-0.96 [facility] Comment on above: Order Comment: Speci men Type: BLOOD SPECIMENOrdering Facility: [facility] Address: [address] [address] Performed By: #### 2 4321-2 ####[facility] LABORATORYCLIA [id number] [address] ESTIMATED GLOMERULAR FILTRATION RATE 101 mL/min/1.73m??? Normal >=60 [facility] Comment on above: Order Comment: Sharath lozano Type: BLOOD SPECIMENOrdering Facility: [facility] Address: [address] [place] [address] Result Comment: Lulu mated Glomerular Filtration Rate [...] actual GFR. Performed By: #### 2 4321-2 ####[facility] LABORATORYCLIA [id number] [address] OF [facility] Glucose [Mass/Vol] 121 mg/dL High 74-99 [facility] Comment on above: Order Comment: Sharath marta Type: BLOOD SPECIMENOrdering Facility: [facility] Address: [address] [address] Result Comment: The [place] [employer] (ADA) provides guidance for cutoff [...] Standards of Medical Care in Diabetes 2016, [place] [employer]. Diabetes Care. 2016.39(Suppl 1). Performed By: #### 2 4321-2 ####[facility] LABORATORYCLIA [id number] [address] STATES OF [facility] Potassium [Moles/Vol] 3.6 mmol/L Low 3.7-5.1 [facility] Comment on above: Order Comment: Speci men Type: BLOOD SPECIMENOrdering Facility: [facility] Address: [address] [place] [address] Performed By: #### 2 4321-2 ####[facility] LABORATORYCLIA [id number] [address] STATES [facility] Sodium [Moles/Vol] 134 mmol/L Low 136-144 [facility] Comment on above: Order Comment: Speci men Type: BLOOD SPECIMENOrdering Facility: [facility] Address: [address] [place] [address] Performed By: #### 2 4321-2 ####[facility] LABORATORYCLIA [id number] [address] STATES [facility] Urea nitrogen [Mass/Vol] 9 mg/dL Normal 7-21 [facility] Comment on above: Order Comment: Speci men Type: BLOOD SPECIMENOrdering Facility: [facility] Address: [address] [place] [address] Performed By: #### 2 4321-2 ####[facility] LABORATORYCLIA [id number] [place] [id number] [place] CASE MANAGEMon 10-13-2021 CASE MANAGEM Normal [facility] CBC panel Auto (Bld)on 10-13 Erythrocyte distribution width (RBC) [Ratio] 13.5 % Normal 11.5-15.0 [facility] Comment on above: Order Comment: Speci men Type: BLOOD SPECIMENOrdering Facility: [facility] Address: [address] [place] [address] Performed By: #### 5 8410-2 ####[facility] LABORATORYCLIA [id number] [address] Hematocrit (Bld) [Volume fraction] 25.6 % Low 36.0-46.0 [facility] Comment on above: Order Comment: Speci men Type: BLOOD SPECIMENOrdering Facility: [facility] Address: [address] [place] [address] Performed By: #### 5 8410-2 ####[facility] LABORATORYCLIA [id number] [address] Hemoglobin (Bld) [Mass/Vol] 8.4 g/dL Low 11.5-15.5 [facility] Comment on above: Order Comment: Speci men Type: BLOOD SPECIMENOrdering Facility: [facility] Address: [address] [place] [address] Performed By: #### 5 8410-2 ####[facility] LABORATORYCLIA [id number] [address] MCH (RBC) [Entitic mass] 32.1 pg Normal 26.0-34.0 [facility] Comment on above: Order Comment: Speci men Type: BLOOD SPECIMENOrdering Facility: [facility] Address: [address] [place] [address] Performed By: #### 5 8410-2 ####[facility] LABORATORYCLIA [id number] [address] [place] MCHC (RBC) [Mass/Vol] 32.8 g/dL Normal 30.5-36.0 [facility] Comment on above: Order Comment: Speci men Type: BLOOD SPECIMENOrdering Facility: [facility] Address: [address] [place] [address] Performed By: #### 5 8410-2 ####[facility] LABORATORYCLIA [id number] [address] MCV (RBC) [Entitic vol] 97.7 fL Normal 80.0-100.0 [facility] Comment on above: Order Comment: Speci men Type: BLOOD SPECIMENOrdering Facility: [facility] Address: [address] [place] [address] Performed By: #### 5 8410-2 ####[facility] LABORATORYCLIA [id number] [address] [place] Nucleated RBC (Bld) [#/Vol] 10*3/uL Normal <0.01 [facility] Comment on above: Order Comment: Speci men Type: BLOOD SPECIMENOrdering Facility: [facility] Address: [address] [place] [address] Performed By: #### 5 8410-2 ####[facility] LABORATORYCLIA [id number] [address] OF [facility] Platelet mean volume (Bld) [Entitic vol] 9.4 fL Normal 9.0-12.7 [facility] Comment on above: Order Comment: Speci men Type: BLOOD SPECIMENOrdering Facility: [facility] Address: [address] [place] [address] Performed By: #### 5 8410-2 ####[facility] LABORATORYCLIA [id number] [address] Platelets (Bld) [#/Vol] 387 10*3/uL Normal 150-400 [facility] Comment on above: Order Comment: Speci men Type: BLOOD SPECIMENOrdering Facility: [facility] Address: [address] [place] [address] Performed By: #### 5 8410-2 ####[facility] LABORATORYCLIA [id number] [address] [place] RBC (Bld) [#/Vol] 2.62 10*6/uL Low 3.90-5.20 [facility] Comment on above: Order Comment: Speci men Type: BLOOD SPECIMENOrdering Facility: [facility] Address: [address] [address] Performed By: #### 5 8410-2 ####[facility] LABORATORYCLIA [id number] [place] [address] [place] WBC (Bld) [#/Vol] 16.34 10*3/uL High 3.70-11.00 [facility] Comment on above: Order Comment: Speci men Type: BLOOD SPECIMENOrdering Facility: [facility] Address: [address] [place] [address] Performed By: #### 5 8410-2 ####[facility] LABORATORYCLIA [id number] [address] [place] CONSULTon 10-13-2021 CONSULT Normal [facility] NUTRITIONon 10-13-2021 NUTRITION Normal [facility] THERAPY NTon 10-13-2021 THERAPY NT Normal [facility] XR CHEST 1V FRONTALon 2021 XR CHEST 1V FRONTAL Normal [facility] XR CHEST 2V FRONTAL/LATon XR CHEST 2V FRONTAL/LAT Normal [facility] ALLIED HEALTHon 10-12-2021 ALLIED HEALTH Normal [facility] Basic metabolic 2000 panelon 10-12-2021 Anion gap [Moles/Vol] 10 mmol/L Normal 9-18 [facility] Comment on above: Order Comment: Speci men Type: BLOOD SPECIMENOrdering Facility: [facility] Address: [address] [address] Performed By: #### 2 4321-2 ####[facility] LABORATORYCLIA [id number] [place] [address] [place] Calcium [Mass/Vol] 7.2 mg/dL Low 8.5-10.2 [facility] Comment on above: Order Comment: Speci men Type: BLOOD SPECIMENOrdering Facility: [facility] Address: [address] [address] Performed By: #### 2 4321-2 ####[facility] LABORATORYCLIA [id number] [place] [address] [place] Chloride [Moles/Vol] 95 mmol/L Low 97-105 [facility] Comment on above: Order Comment: Speci men Type: BLOOD SPECIMENOrdering Facility: [facility] Address: [address] [place] [address] Performed By: #### 2 4321-2 ####[facility] LABORATORYCLIA [id number] [address] CO2 [Moles/Vol] 26 mmol/L Normal 22-30 [facility] Comment on above: Order Comment: Speci men Type: BLOOD SPECIMENOrdering Facility: [facility] Address: [address] [place] [address] Performed By: #### 2 4321-2 ####[facility]ITALCL[facility] [id number] [address] Creatinine [Mass/Vol] 0.38 mg/dL Low 0.58-0.96 [facility] Comment on above: Order Comment: Speci men Type: BLOOD SPECIMENOrdering Facility: [facility] Address: [address] [place] [address] Performed By: #### 2 4321-2 ####[facility] LABORATORYCLIA [id number] [address] ESTIMATED GLOMERULAR FILTRATION RATE 105 mL/min/1.73m??? Normal >=60 [facility] Comment on above: Order Comment: Speci men Type: BLOOD SPECIMENOrdering Facility: [facility] Address: [address] [place] [address] Result Comment: Lulu mated Glomerular Filtration Rate [...] actual GFR. Performed By: #### 2 4321-2 ####[facility] LABORATORYCLIA [id number] [place] [address] [place] Glucose [Mass/Vol] 111 mg/dL High 74-99 [facility] Comment on above: Order Comment: Speci men Type: BLOOD SPECIMENOrdering Facility: [facility] Address: [address] [place] [address] Result Comment: The [place] [employer] (ADA) provides guidance for cutoff [...] Standards of Medical Care in Diabetes 2016, [place] [employer]. Diabetes Care. 2016.39(Suppl 1). Performed By: #### 2 4321-2 ####[facility] LABORATORYCLIA [id number] [place] [address] [place] Potassium [Moles/Vol] 3.4 mmol/L Low 3.7-5.1 [facility] Comment on above: Order Comment: Cathyi men Type: BLOOD SPECIMENOrdering Facility: [facility] Address: [address] [place] [address] Performed By: #### 2 4321-2 ####[facility] LABORATORYCLIA [id number] [place] [address] [place] Sodium [Moles/Vol] 131 mmol/L Low 136-144 [facility] Comment on above: Order Comment: Speci men Type: BLOOD SPECIMENOrdering Facility: [facility] Address: [address] [place] [address] Performed By: #### 2 4321-2 ####[facility] LABORATORYCLIA [id number] [place] [address] [place] Urea nitrogen [Mass/Vol] 10 mg/dL Normal 7-21 [facility] Comment on above: Order Comment: Speci men Type: BLOOD SPECIMENOrdering Facility: [facility] Address: [address] [place] [address] Performed By: #### 2 4321-2 ####[facility] LABORATORYCLIA [id number] [address] [place] CASE MANAGEMon 10-12-2021 CASE MANAGEM Normal [facility] CBC panel Auto (Bld)on 10-12 Erythrocyte distribution width (RBC) [Ratio] 13.6 % Normal 11.5-15.0 [facility] Comment on above: Order Comment: Speci men Type: BLOOD SPECIMENOrdering Facility: [facility] Address: [address] [place] [address] Performed By: #### 5 8410-2 ####[facility] LABORATORYCLIA [id number] [address] [place] Hematocrit (Bld) [Volume fraction] 24.8 % Low 36.0-46.0 [facility] Comment on above: Order Comment: Speci men Type: BLOOD SPECIMENOrdering Facility: [facility] Address: [address] [place] [address] Performed By: #### 5 8410-2 ####[facility] LABORATORYCLIA [id number] [address] [place] Hemoglobin (Bld) [Mass/Vol] 8.6 g/dL Low 11.5-15.5 [facility] Comment on above: Order Comment: Speci men Type: BLOOD SPECIMENOrdering Facility: [facility] Address: [address] [place] [address] Performed By: #### 5 8410-2 ####[facility] LABORATORYCLIA [id number] [address] [place] MCH (RBC) [Entitic mass] 32.8 pg Normal 26.0-34.0 [facility] Comment on above: Order Comment: Speci men Type: BLOOD SPECIMENOrdering Facility: [facility] Address: [address] [place] [address] Performed By: #### 5 8410-2 ####[facility] LABORATORYCLIA [id number] [address] MCHC (RBC) [Mass/Vol] 34.7 g/dL Normal 30.5-36.0 [facility] Comment on above: Order Comment: Speci men Type: BLOOD SPECIMENOrdering Facility: [facility] Address: [address] [place] [address] Performed By: #### 5 8410-2 ####[facility] LABORATORYCLIA [id number] [address] MCV (RBC) [Entitic vol] 94.7 fL Normal 80.0-100.0 [facility] Comment on above: Order Comment: Speci men Type: BLOOD SPECIMENOrdering Facility: [facility] Address: [address] [place] [address] Performed By: #### 5 8410-2 ####[facility] LABORATORYCLIA [id number] [address] Nucleated RBC (Bld) [#/Vol] 10*3/uL Normal <0.01 [facility] Comment on above: Order Comment: Speci men Type: BLOOD SPECIMENOrdering Facility: [facility] Address: [address] [place] [address] Performed By: #### 5 8410-2 ####[facility] LABORATORYCLIA [id number] [address] STATES OF [facility] Platelet mean volume (Bld) [Entitic vol] 9.5 fL Normal 9.0-12.7 [facility] Comment on above: Order Comment: Speci men Type: BLOOD SPECIMENOrdering Facility: [facility] Address: [address] [place] [address] Performed By: #### 5 8410-2 ####[facility] LABORATORYCLIA [id number] [address] [place] Platelets (Bld) [#/Vol] 338 10*3/uL Normal 150-400 [facility] Comment on above: Order Comment: Speci men Type: BLOOD SPECIMENOrdering Facility: [facility] Address: [address] [place] [address] Performed By: #### 5 8410-2 ####[facility] LABORATORYCLIA [id number] [address] STATES OF [facility] RBC (Bld) [#/Vol] 2.62 10*6/uL Low 3.90-5.20 [facility] Comment on above: Order Comment: Speci men Type: BLOOD SPECIMENOrdering Facility: [facility] Address: [address] [place] [address] Performed By: #### 5 8410-2 ####[facility] LABORATORYCLIA [id number] [address] OF [facility] WBC (Bld) [#/Vol] 15.12 10*3/uL High 3.70-11.00 [facility] Comment on above: Order Comment: Speci men Type: BLOOD SPECIMENOrdering Facility: [facility] Address: [address] [place] [address] Performed By: #### 5 8410-2 ####[facility] LABORATORYCLIA [id number] [address] OF [facility] CNPNon 10-12-2021 CNPN Normal [facility] THERAPY NTon 10-12-2021 THERAPY NT Normal [facility] XR CHEST 1V FRONTALon 2021 XR CHEST 1V FRONTAL Normal [facility] ALLIED HEALTHon 10-11-2021 ALLIED HEALTH Normal [facility] ALLIED HEALTH Normal [facility] ALLIED HEALTH Normal [facility] ALLIED HEALTH Normal [facility] ANES POSTPROC EVALon 022 ANES POSTPROC EVAL Normal [facility] Bacteria Bld Culton 10-12-19 22 Bacteria identified Cx Nom (Bld) CULTURE, BLOOD: No growth 5 days Normal [facility] Comment on above: Performed By: #### 6 00-7 ####[facility] LABORATORYCLIA [id number] [place] [address] [place] Bacteria identified Cx Nom (Bld) CULTURE, BLOOD: No growth 5 days Normal [facility] Comment on above: Performed By: #### 6 00-7 ####[facility] LABORATORYCLIA [id number] [place] [address] [place] Basic metabolic 2000 panelon 10-11-2021 Anion gap [Moles/Vol] 9 mmol/L Normal 9-18 [facility] Comment on above: Order Comment: Speci men Type: BLOOD SPECIMENOrdering Facility: [facility] Address: [address] [place] [address] Performed By: #### 2 4321-2 ####[facility] LABORATORYCLIA [id number] [place] [address] [place] Calcium [Mass/Vol] 7.5 mg/dL Low 8.5-10.2 [facility] Comment on above: Order Comment: Speci men Type: BLOOD SPECIMENOrdering Facility: [facility] Address: [address] [place] [address] Performed By: #### 2 4321-2 ####[facility] LABORATORYCLIA [id number] [address] [place] Chloride [Moles/Vol] 94 mmol/L Low 97-105 [facility] Comment on above: Order Comment: Speci men Type: BLOOD SPECIMENOrdering Facility: [facility] Address: [address] [place] [address] Performed By: #### 2 4321-2 ####[facility] LABORATORYCLIA [id number] [place] [address] [place] CO2 [Moles/Vol] 27 mmol/L Normal 22-30 [facility] Comment on above: Order Comment: Speci men Type: BLOOD SPECIMENOrdering Facility: [facility] Address: [address] [place] [address] Performed By: #### 2 4321-2 ####[facility] LABORATORYCLIA [id number] [address] [place] Creatinine [Mass/Vol] 0.46 mg/dL Low 0.58-0.96 [facility] Comment on above: Order Comment: Sharath lozano Type: BLOOD SPECIMENOrdering Facility: [facility] Address: [address] [address] Performed By: #### 2 4321-2 ####[facility] LABORATORYCLIA [id number] [address] ESTIMATED GLOMERULAR FILTRATION RATE 101 mL/min/1.73m??? Normal >=60 [facility] Comment on above: Order Comment: Sharath lozano Type: BLOOD SPECIMENOrdering Facility: [facility] Address: [address] [address] Result Comment: Lulu mated Glomerular Filtration Rate [...] actual GFR. Performed By: #### 2 4321-2 ####[facility] LABORATORYCLIA [id number] [address] STATES OF [facility] Glucose [Mass/Vol] 125 mg/dL High 74-99 [facility] Comment on above: Order Comment: Sharath lozano Type: BLOOD SPECIMENOrdering Facility: [facility] Address: [address] [address] Result Comment: The [place] [employer] (ADA) provides guidance for cutoff [...] Standards of Medical Care in Diabetes 2016, [place] [employer]. Diabetes Care. 2016.39(Suppl 1). Performed By: #### 2 4321-2 ####[facility] LABORATORYCLIA [id number] [address] Potassium [Moles/Vol] 3.8 mmol/L Normal 3.7-5.1 [facility] Comment on above: Order Comment: Speci men Type: BLOOD SPECIMENOrdering Facility: [facility] Address: [address] [place] [address] Performed By: #### 2 4321-2 ####[facility] LABORATORYCLIA [id number] [address] Sodium [Moles/Vol] 130 mmol/L Low 136-144 [facility] Comment on above: Order Comment: Speci men Type: BLOOD SPECIMENOrdering Facility: [facility] Address: [address] [place] [address] Performed By: #### 2 4321-2 ####[facility] LABORATORYCLIA [id number] [address] Urea nitrogen [Mass/Vol] 7 mg/dL Normal 7-21 [facility] Comment on above: Order Comment: Speci men Type: BLOOD SPECIMENOrdering Facility: [facility] Address: [address] [place] [address] Performed By: #### 2 4321-2 ####[facility] LABORATORYCLIA [id number] [address] CBC panel Auto (Bld)on 10-11 Erythrocyte distribution width (RBC) [Ratio] 13.5 % Normal 11.5-15.0 [facility] Comment on above: Order Comment: Speci men Type: BLOOD SPECIMENOrdering Facility: [facility] Address: [address] [place] [address] Performed By: #### 5 8410-2 ####[facility] LABORATORYCLIA [id number] [address] Hematocrit (Bld) [Volume fraction] 25.4 % Low 36.0-46.0 [facility] Comment on above: Order Comment: Speci men Type: BLOOD SPECIMENOrdering Facility: [facility] Address: [address] [place] [address] Performed By: #### 5 8410-2 ####[facility] LABORATORYCLIA [id number] [address] OF [facility] Hemoglobin (Bld) [Mass/Vol] 8.8 g/dL Low 11.5-15.5 [facility] Comment on above: Order Comment: Speci men Type: BLOOD SPECIMENOrdering Facility: [facility] Address: [address] [place] [address] Performed By: #### 5 8410-2 ####[facility] LABORATORYCLIA [id number] [address] MCH (RBC) [Entitic mass] 32.5 pg Normal 26.0-34.0 [facility] Comment on above: Order Comment: Speci men Type: BLOOD SPECIMENOrdering Facility: [facility] Address: [address] [place] [address] Performed By: #### 5 8410-2 ####[facility] LABORATORYCLIA [id number] [address] OF [facility] MCHC (RBC) [Mass/Vol] 34.6 g/dL Normal 30.5-36.0 [facility] Comment on above: Order Comment: Speci men Type: BLOOD SPECIMENOrdering Facility: [facility] Address: [address] [place] [address] Performed By: #### 5 8410-2 ####[facility] LABORATORYCLIA [id number] [address] MCV (RBC) [Entitic vol] 93.7 fL Normal 80.0-100.0 [facility] Comment on above: Order Comment: Speci men Type: BLOOD SPECIMENOrdering Facility: [facility] Address: [address] [place], [place] [address] Performed By: #### 5 8410-2 ####[facility] LABORATORYCLIA [id number] [address] Nucleated RBC (Bld) [#/Vol] 10*3/uL Normal <0.01 [facility] Comment on above: Order Comment: Speci men Type: BLOOD SPECIMENOrdering Facility: [facility] Address: [address] [place] [address] Performed By: #### 5 8410-2 ####[facility] LABORATORYCLIA [id number] [address] [place] Platelet mean volume (Bld) [Entitic vol] 9.7 fL Normal 9.0-12.7 [facility] Comment on above: Order Comment: Speci men Type: BLOOD SPECIMENOrdering Facility: [facility] Address: [address] [place] [address] Performed By: #### 5 8410-2 ####[facility] LABORATORYCLIA [id number] [address] [place] Platelets (Bld) [#/Vol] 310 10*3/uL Normal 150-400 [facility] Comment on above: Order Comment: Speci men Type: BLOOD SPECIMENOrdering Facility: [facility] Address: [address] [place] [address] Performed By: #### 5 8410-2 ####[facility] LABORATORYCLIA [id number] [address] [place] RBC (Bld) [#/Vol] 2.71 10*6/uL Low 3.90-5.20 [facility] Comment on above: Order Comment: Speci men Type: BLOOD SPECIMENOrdering Facility: [facility] Address: [address] [place] [address] Performed By: #### 5 8410-2 ####[facility] LABORATORYCLIA [id number] [address] [place] WBC (Bld) [#/Vol] 19.17 10*3/uL High 3.70-11.00 [facility] Comment on above: Order Comment: Speci men Type: BLOOD SPECIMENOrdering Facility: [facility] Address: [address] [place] [address] Performed By: #### 5 8410-2 ####[facility] LABORATORYCLIA [id number] [address] [place] CONSULTon 10-11-2021 CONSULT HNO ID: [id number] Author: Corin Quinn MD Service: [facility] Author Type: Physician Type: Consults Filed: 10/11/2021 3:56 PM Note Text: Consul tdictated. No intervention Normal [facility] CONSULT Normal [facility] MRI BRAIN WO/W IVCONon 10-11 MRI BRAIN WO/W IVCON Normal [facility] SEPSIS LACTATEon 10-11-2021 Lactate [Moles/Vol] 1.0 mmol/L Normal 0.5-2.0 [facility] Comment on above: Order Comment: Speci men Type: BLOOD SPECIMENOrdering Facility: [facility] Address: [address] [place] [address] Performed By: #### S LACT ####[facility] LABORATORYCLIA [id number] [address] THERAPY NTon 10-11-2021 THERAPY NT Normal [facility] THERAPY NT Normal [facility] XR CHEST 1V FRONTALon 2021 XR CHEST 1V FRONTAL Normal [facility] ALLIED HEALTHon 10-10-2021 ALLIED HEALTH Normal [facility] ALLIED HEALTH Normal [facility] Basic metabolic 2000 panelon 10-10-2021 Anion gap [Moles/Vol] 13 mmol/L Normal 9-18 [facility] Comment on above: Order Comment: Speci men Type: BLOOD SPECIMENOrdering Facility: [facility] Address: [address] [place] [address] Performed By: #### 2 4321-2, 2777-1, 24026-2 ####[facility]ORATORYCLIA [id number] [place] [address] [place] Calcium [Mass/Vol] 7.1 mg/dL Low 8.5-10.2 [facility] Comment on above: Order Comment: Speci men Type: BLOOD SPECIMENOrdering Facility: [facility] Address: [address] [place] [address] Performed By: #### 2 4321-2, 2776-04, ####[facility] LABORATORYCLIA [id number] [place] [address] [place] Chloride [Moles/Vol] 96 mmol/L Low 97-105 [facility] Comment on above: Order Comment: Speci men Type: BLOOD SPECIMENOrdering Facility: [facility] Address: [address] [place] [address] Performed By: #### 2 4321-2, 2776-04, ####[facility] LABORATORYCLIA [id number] [address] STATES OF [facility] CO2 [Moles/Vol] 23 mmol/L Normal 22-30 [facility] Comment on above: Order Comment: Speci men Type: BLOOD SPECIMENOrdering Facility: [facility] Address: [address] [place] [address] Performed By: #### 2 4321-2, 2776-04, ####[facility] LABORATORYCLIA [id number] [place] [address] [place] Creatinine [Mass/Vol] 0.52 mg/dL Low 0.58-0.96 [facility] Comment on above: Order Comment: Speci men Type: BLOOD SPECIMENOrdering Facility: [facility] Address: [address] [place] [address] Performed By: #### 2 4321-2, 2776-04, ####[facility] LABORATORYCLIA [id number] [address] [place] ESTIMATED GLOMERULAR FILTRATION RATE 98 mL/min/1.73m??? Normal >=60 [facility] Comment on above: Order Comment: Sharath lozano Type: BLOOD SPECIMENOrdering Facility: [facility] Address: [address] [place] [address] Result Comment: Lulu mated Glomerular Filtration Rate [...] GFR. Performed By: #### 2 4321-2, 2777-1, ####[facility] LABORATORYCLIA [id number] [place] [address] [place] Glucose [Mass/Vol] 126 mg/dL High 74-99 [facility] Comment on above: Order Comment: Sharath lozano Type: BLOOD SPECIMENOrdering Facility: [facility] Address: [address] [id number] Result Comment: The [place] [employer] (ADA) provides guidance for cutoff [...] Standards of Medical Care in Diabetes 2016, [place] [employer]. Diabetes Care. 2016.39(Suppl 1). Performed By: #### 2 4321-2, 2777-, 79360-5 ####[facility] LABORATORYCLIA [id number] [place] [address] [place] Potassium [Moles/Vol] 3.8 mmol/L Normal 3.7-5.1 [facility] Comment on above: Order Comment: Sharath lozano Type: BLOOD SPECIMENOrdering Facility: [facility] Address: [address] Performed By: #### 2 4321-2, 27710-20, ####[facility] LABORATORYCLIA [id number] [address] STATES OF [facility] Sodium [Moles/Vol] 132 mmol/L Low 136-144 [facility] Comment on above: Order Comment: Speci men Type: BLOOD SPECIMENOrdering Facility: [facility] Address: [address] [place], [place] [address] Performed By: #### 2 4321-2, 2776-04, ####[facility] LABORATORYCLIA [id number] [address] STATES [facility] Urea nitrogen [Mass/Vol] 9 mg/dL Normal 11-09 [facility] Comment on above: Order Comment: Speci men Type: BLOOD SPECIMENOrdering Facility: [facility] Address: [address] [place] [address] Performed By: #### 2 4321-2, 2776-04, ####[facility] LABORATORYCLIA [id number] [address] [place] CASE MGT INIT ASSESon 2021 CASE MGT INIT ASSES Normal [facility] CBC panel Auto (Bld)on 10-10 Erythrocyte distribution width (RBC) [Ratio] 13.2 % Normal 11.5-15.0 [facility] Comment on above: Order Comment: Speci men Type: BLOOD SPECIMENOrdering Facility: [facility] Address: [address] [address] Performed By: #### 5 8410-2 ####[facility] LABORATORYCLIA [id number] [address] STATES OF [facility] Hematocrit (Bld) [Volume fraction] 26.5 % Low 36.0-46.0 [facility] Comment on above: Order Comment: Speci men Type: BLOOD SPECIMENOrdering Facility: [facility] Address: [address] [place] [address] Performed By: #### 5 8410-2 ####[facility] LABORATORYCLIA [id number] [address] Hemoglobin (Bld) [Mass/Vol] 9.3 g/dL Low 11.5-15.5 [facility] Comment on above: Order Comment: Speci men Type: BLOOD SPECIMENOrdering Facility: [facility] Address: [address] [place] [address] Performed By: #### 5 8410-2 ####[facility] LABORATORYCLIA [id number] [address] MCH (RBC) [Entitic mass] 33.0 pg Normal 26.0-34.0 [facility] Comment on above: Order Comment: Speci men Type: BLOOD SPECIMENOrdering Facility: [facility] Address: [address] [place] [address] Performed By: #### 5 8410-2 ####[facility] LABORATORYCLIA [id number] [address] MCHC (RBC) [Mass/Vol] 35.1 g/dL Normal 30.5-36.0 [facility] Comment on above: Order Comment: Speci men Type: BLOOD SPECIMENOrdering Facility: [facility] Address: [address] [place] [address] Performed By: #### 5 8410-2 ####[facility] LABORATORYCLIA [id number] [address] MCV (RBC) [Entitic vol] 94.0 fL Normal 80.0-100.0 [facility] Comment on above: Order Comment: Speci men Type: BLOOD SPECIMENOrdering Facility: [facility] Address: [address] [place] [address] Performed By: #### 5 8410-2 ####[facility] LABORATORYCLIA [id number] [address] Nucleated RBC (Bld) [#/Vol] 10*3/uL Normal <0.01 [facility] Comment on above: Order Comment: Speci men Type: BLOOD SPECIMENOrdering Facility: [facility] Address: [address] [place] [address] Performed By: #### 5 8410-2 ####[facility] LABORATORYCLIA [id number] [address] [place] Platelet mean volume (Bld) [Entitic vol] 9.6 fL Normal 9.0-12.7 [facility] Comment on above: Order Comment: Speci men Type: BLOOD SPECIMENOrdering Facility: [facility] Address: [address] [place], [place] [address] Performed By: #### 5 8410-2 ####[facility] LABORATORYCLIA [id number] [address] [place] Platelets (Bld) [#/Vol] 325 10*3/uL Normal 150-400 [facility] Comment on above: Order Comment: Speci men Type: BLOOD SPECIMENOrdering Facility: [facility] Address: [address] [place] [address] Performed By: #### 5 8410-2 ####[facility] LABORATORYCLIA [id number] [address] [place] RBC (Bld) [#/Vol] 2.82 10*6/uL Low 3.90-5.20 [facility] Comment on above: Order Comment: Speci men Type: BLOOD SPECIMENOrdering Facility: [facility] Address: [address] [place], [place] [address] Performed By: #### 5 8410-2 ####[facility] LABORATORYCLIA [id number] [address] [place] WBC (Bld) [#/Vol] 14.72 10*3/uL High 3.70-11.00 [facility] Comment on above: Order Comment: Speci men Type: BLOOD SPECIMENOrdering Facility: [facility] Address: [address] [place] [address] Performed By: #### 5 8410-2 ####[facility] LABORATORYCLIA [id number] [place] [address] [place] CONSULTon 10-10-2021 CONSULT Normal [facility] Calcium.ionized [Moles/Vol]o n 10-10-2021 Calcium.ionized (BldV) [Mass/Vol] 0.96 mmol/L Low 1.08-1.30 [facility] Comment on above: Order Comment: Speci men Type: BLOOD SPECIMENOrdering Facility: [facility] Address: [address] [place] [address] Performed By: #### 1 995-0 ####[facility] LABORATORYCLIA [id number] [address] [place] Calcium.ionized adjusted to pH 7.4 (Bld) [Moles/Vol] 0.98 mmol/L Low 1.08-1.30 [facility] Comment on above: Order Comment: Speci men Type: BLOOD SPECIMENOrdering Facility: [facility] Address: [address] [place] [address] Performed By: #### 1 995-0 ####[facility] LABORATORYCLIA [id number] [place] [address] [place] Magnesium SerPl-mCncon 10-10 Magnesium [Mass/Vol] 1.3 mg/dL Low 1.7-2.3 [facility] Comment on above: Order Comment: Speci men Type: BLOOD SPECIMENOrdering Facility: [facility] Address: [address] [place] [address] Performed By: #### 2 4321-2, 2777-1, 78105-2 ####[facility] LABORATORYCLIA [id number] [place] [address] [place] Phosphate SerPl-mCncon 10-10 Phosphate [Mass/Vol] 4.0 mg/dL Normal 2.7-4.8 [facility] Comment on above: Order Comment: Speci men Type: BLOOD SPECIMENOrdering Facility: [facility] Address: [address] [address] Performed By: #### 2 4321-2, 2777-1, 16582-6 ####[facility] LABORATORYCLIA [id number] [address] [place] US KIDNEY/BLADDERon 10-11-19 US KIDNEY/BLADDER Normal [facility] Urinalysis complete panel (U )on 10-10-2021 Bilirubin Ql (U) Negative Normal Negative [facility] Comment on above: Order Comment: Speci men Type: URINE SPECIMENOrdering Facility: [facility] Address: [address] [place] [address] Performed By: #### 2 4356-8 ####[facility] LABORATORYCLIA [id number] [address] Clarity (Unsp spec) Clear Normal Clear [facility] Comment on above: Order Comment: Speci men Type: URINE SPECIMENOrdering Facility: [facility] Address: [address] [place] [address] Performed By: #### 2 4356-8 ####[facility] LABORATORYCLIA [id number] [address] STATES [facility] Color (U) Colorless Normal yellow [facility] Comment on above: Order Comment: Speci men Type: URINE SPECIMENOrdering Facility: [facility] Address: [address] [address] Performed By: #### 2 4356-8 ####[facility] LABORATORYCLIA [id number] [address] OF [facility] Glucose Test strip (U) [Mass/Vol] Negative Normal Negative [facility] Comment on above: Order Comment: Speci men Type: URINE SPECIMENOrdering Facility: [facility] Address: [address] [address] Performed By: #### 2 4356-8 ####[facility] LABORATORYCLIA [id number] [address] [place] Hemoglobin Ql (U) Trace Abnormal Negative [facility] Comment on above: Order Comment: Speci men Type: URINE SPECIMENOrdering Facility: [facility] Address: [address] [place] [address] Performed By: #### 2 4356-8 ####[facility] LABORATORYCLIA [id number] [address] Ketones Ql (U) Negative Normal Negative [facility] Comment on above: Order Comment: Speci men Type: URINE SPECIMENOrdering Facility: [facility] Address: [address] [place] [address] Performed By: #### 2 4356-8 ####[facility] LABORATORYCLIA [id number] [address] Leukocyte esterase Test strip Ql (U) 250 Karson/mL Abnormal Negative [facility] Comment on above: Order Comment: Speci men Type: URINE SPECIMENOrdering Facility: [facility] Address: [address] [place] [address] Performed By: #### 2 4356-8 ####[facility] LABORATORYCLIA [id number] [address] [place] Nitrite Ql (U) Negative Normal Negative [facility] Comment on above: Order Comment: Speci men Type: URINE SPECIMENOrdering Facility: [facility] Address: [address] [place] [address] Performed By: #### 2 4356-8 ####[facility] LABORATORYCLIA [id number] [address] [place] pH (U) 6.5 [pH] Normal 5.0-8.0 [facility] Comment on above: Order Comment: Speci men Type: URINE SPECIMENOrdering Facility: [facility] Address: [address] [place] [address] Performed By: #### 2 4356-8 ####[facility]ORATORYCLIA [id number] [address] [place] Protein (U) [Mass/Vol] Negative Normal Negative [facility] Comment on above: Order Comment: Speci men Type: URINE SPECIMENOrdering Facility: [facility] Address: [address] [place] [address] Performed By: #### 2 4356-8 ####[facility] LABORATORYCLIA [id number] [address] RBC LM.HPF (Urine sed) [#/Area] 3-5 /HPF Abnormal 0-3 /HPF [facility] Comment on above: Order Comment: Speci men Type: URINE SPECIMENOrdering Facility: [facility] Address: [address] [place] [address] Performed By: #### 2 4356-8 ####[facility] LABORATORYCLIA [id number] [address] Specific gravity (U) [Rel density] 1.007 Normal 1.005-1.030 [facility] Comment on above: Order Comment: Speci men Type: URINE SPECIMENOrdering Facility: [facility] Address: [address] [place] [address] Performed By: #### 2 4356-8 ####[facility] LABORATORYCLIA [id number] [address] Urobilinogen Ql (U) Normal Normal Negative [facility] Comment on above: Order Comment: Speci men Type: URINE SPECIMENOrdering Facility: [facility] Address: [address] [place] [address] Performed By: #### 2 4356-8 ####[facility] LABORATORYCLIA [id number] [address] WBC LM.HPF (Urine sed) [#/Area] 6-10 /HPF Abnormal 0-5 /HPF [facility] Comment on above: Order Comment: Speci men Type: URINE SPECIMENOrdering Facility: [facility] Address: [address] [place] [address] Performed By: #### 2 4356-8 ####[facility] LABORATORYCLIA [id number] [address] XR CHEST 1V FRONTALon 2021 XR CHEST 1V FRONTAL Normal [facility] ALLIED HEALTHon 10-09-2021 ALLIED HEALTH Normal [facility] ALLIED HEALTH Normal [facility] ANES PRE-OPon 10-09-2021 ANES PRE-OP Normal [facility] ANES PRE-OP Normal [facility] ARTERIAL BLOOD GASESon 10-09 BASE DEFICIT, ARTERIAL -1 mmol/L Normal -2-0 [facility] Comment on above: Order Comment: Speci men Type: ARTERIAL BLOOD SPECIMENOrdering Facility: [facility] Address: [address] [place] [address] Performed By: #### A LLBG ####[facility] LABORATORYCLIA [id number] [address] Body temperature 96.08 [degF] Normal [facility] Comment on above: Order Comment: Speci men Type: ARTERIAL BLOOD SPECIMENOrdering Facility: [facility] Address: [address] [place] [address] Performed By: #### A LLBG ####[facility] LABORATORYCLIA [id number] [address] [place] CALCIUM IONIZED, PH CORRECTED 1.07 mmol/L Low 1.08-1.30 [facility] Comment on above: Order Comment: Speci men Type: ARTERIAL BLOOD SPECIMENOrdering Facility: [facility] Address: [address] [place] [address] Performed By: #### A LLBG ####[facility] LABORATORYCLIA [id number] [place] [address] [place] Calcium.ionized (BldV) [Mass/Vol] 1.07 mmol/L Low 1.08-1.30 [facility] Comment on above: Order Comment: Speci men Type: ARTERIAL BLOOD SPECIMENOrdering Facility: [facility] Address: [address] [place] [address] Performed By: #### A LLBG ####[facility] LABORATORYCLIA [id number] [address] [place] Carboxyhemoglobin (BldA) [Mass fraction] 1.2 % Normal 0.0-2.0 [facility] Comment on above: Order Comment: Speci men Type: ARTERIAL BLOOD SPECIMENOrdering Facility: [facility] Address: [address] [address] Result Comment: Carb oxyhemoglobin Reference Range for Smokers: 2.0-8.0% Performed By: #### A LLBG ####[facility]ORATORYCLIA [id number] [address] [place] CO2 (Bld) [Partial pressure] 39 mm Hg Normal 36-46 [facility] Comment on above: Order Comment: Speci men Type: ARTERIAL BLOOD SPECIMENOrdering Facility: [facility] Address: [address] [place] [address] Performed By: #### A LLBG ####[facility] LABORATORYCLIA [id number] [address] [place] CO2 [Moles/Vol] 22 mmol/L Normal 22-28 [facility] Comment on above: Order Comment: Speci men Type: ARTERIAL BLOOD SPECIMENOrdering Facility: [facility] Address: [address] [place] [address] Performed By: #### A LLBG ####[facility] LABORATORYCLIA [id number] [address] [place] CO2 adjusted to patient's actual temperature (Bld) [Partial pressure] 36 mmHg Normal 36-46 [facility] Comment on above: Order Comment: Speci men Type: ARTERIAL BLOOD SPECIMENOrdering Facility: [facility] Address: [address] [address] Performed By: #### A LLBG ####[facility] LABORATORYCLIA [id number] [address] [place] Glucose [Mass/Vol] 164 mg/dL High 60-105 [facility] Comment on above: Order Comment: Speci men Type: ARTERIAL BLOOD SPECIMENOrdering Facility: [facility] Address: [address] [place], [place] [id number] Performed By: #### A LLBG ####[facility] LABORATORYCLIA [id number] [address] [place] HCO3 (Bld) [Moles/Vol] 24 mmol/L Normal 22-26 [facility] Comment on above: Order Comment: Speci men Type: ARTERIAL BLOOD SPECIMENOrdering Facility: [facility] Address: [address] [place] [address] Performed By: #### A LLBG ####[facility] LABORATORYCLIA [id number] [address] [place] Hematocrit (Bld) [Volume fraction] 32.9 % Low 36.0-46.0 [facility] Comment on above: Order Comment: Speci men Type: ARTERIAL BLOOD SPECIMENOrdering Facility: [facility] Address: [address] [place] [address] Performed By: #### A LLBG ####[facility] LABORATORYCLIA [id number] [address] [place] Hemoglobin (Bld) [Mass/Vol] 10.6 g/dL Low 11.5-15.5 [facility] Comment on above: Order Comment: Speci men Type: ARTERIAL BLOOD SPECIMENOrdering Facility: [facility] Address: [address] [place] [address] Performed By: #### A LLBG ####[facility] LABORATORYCLIA [id number] [address] [place] Methemoglobin (Bld) [Mass fraction] 1.1 % Normal 0.0-1.5 [facility] Comment on above: Order Comment: Speci men Type: ARTERIAL BLOOD SPECIMENOrdering Facility: [facility] Address: [address] [place] [address] Performed By: #### A LLBG ####[facility] LABORATORYCLIA [id number] [address] [place] O2 THERAPY RA=Room Air Normal [facility] Comment on above: Order Comment: Speci men Type: ARTERIAL BLOOD SPECIMENOrdering Facility: [facility] Address: [address] [place] [address] Performed By: #### A LLBG ####[facility]ORATORYCLIA [id number] [address] Oxygen (Bld) [Partial pressure] 75 mm Hg Low 85-95 [facility] Comment on above: Order Comment: Speci men Type: ARTERIAL BLOOD SPECIMENOrdering Facility: [facility] Address: [address] [place] [address] Performed By: #### A LLBG ####[facility] LABORATORYCLIA [id number] [address] Oxygen adjusted to patient's actual temperature (Bld) [Partial pressure] 69 mmHg Low 85-95 [facility] Comment on above: Order Comment: Speci men Type: ARTERIAL BLOOD SPECIMENOrdering Facility: [facility] Address: [address] [place] [address] Performed By: #### A LLBG ####[facility] LABORATORYCLIA [id number] [address] [place] OXYGEN SATURATION, ARTERIAL 95 % Normal 95-98 [facility] Comment on above: Order Comment: Speci men Type: ARTERIAL BLOOD SPECIMENOrdering Facility: [facility] Address: [address] [place] [address] Performed By: #### A LLBG ####[facility]ORATORYCLIA [id number] [address] [place] Oxyhemoglobin (BldA) [Mass fraction] 93 % Low 95-98 [facility] Comment on above: Order Comment: Speci men Type: ARTERIAL BLOOD SPECIMENOrdering Facility: [facility] Address: [address] [place] [address] Performed By: #### A LLBG ####[facility]ORATORYCLIA [id number] [address] [place] pH (Bld) 7.40 [pH] Normal 7.35-7.45 [facility] Comment on above: Order Comment: Speci men Type: ARTERIAL BLOOD SPECIMENOrdering Facility: [facility] Address: [address] [place] [address] Performed By: #### A LLBG ####[facility] LABORATORYCLIA [id number] [address] pH adjusted to patient's actual temperature (Bld) 7.42 Normal 7.35-7.45 [facility] Comment on above: Order Comment: Speci men Type: ARTERIAL BLOOD SPECIMENOrdering Facility: [facility] Address: [address] [place] [address] Performed By: #### A LLBG ####[facility] LABORATORYCLIA [id number] [address] [place] Potassium [Moles/Vol] 2.7 mmol/L Low 3.5-5.0 [facility] Comment on above: Order Comment: Speci men Type: ARTERIAL BLOOD SPECIMENOrdering Facility: [facility] Address: [address] [place] [address] Performed By: #### A LLBG ####[facility] LABORATORYCLIA [id number] [address] [place] Sodium [Moles/Vol] 133 mmol/L Low 136-144 [facility] Comment on above: Order Comment: Speci men Type: ARTERIAL BLOOD SPECIMENOrdering Facility: [facility] Address: [address] [place] [address] Performed By: #### A LLBG ####[facility]ORATORYCLIA [id number] [place] [address] [place] Basic metabolic 2000 panelon 10-09-2021 Anion gap [Moles/Vol] 15 mmol/L Normal 9-18 [facility] Comment on above: Order Comment: Speci men Type: BLOOD SPECIMENOrdering Facility: [facility] Address: [address] [place] [address] Performed By: #### 1 9123-9, 2777-1, 48956-1 ####[facility] LABORATORYCLIA [id number] [place] [address] [place] Calcium [Mass/Vol] 8.4 mg/dL Low 8.5-10.2 [facility] Comment on above: Order Comment: Speci men Type: BLOOD SPECIMENOrdering Facility: [facility] Address: [address] [place] [address] Performed By: #### 1 9123-9, 27710-20, 94758-5 ####[facility] LABORATORYCLIA [id number] [place] [address] [place] Chloride [Moles/Vol] 96 mmol/L Low 97-105 [facility] Comment on above: Order Comment: Speci men Type: BLOOD SPECIMENOrdering Facility: [facility] Address: [address] [place] [address] Performed By: #### 1 9123-9, 27710-20, 64887-6 ####[facility] LABORATORYCLIA [id number] [address] STATES OF [facility] CO2 [Moles/Vol] 23 mmol/L Normal 22-30 [facility] Comment on above: Order Comment: Speci men Type: BLOOD SPECIMENOrdering Facility: [facility] Address: [address] [place] [address] Performed By: #### 1 9123-9, 27710-20, ####[facility] LABORATORYCLIA [id number] [address] [place] Creatinine [Mass/Vol] 0.37 mg/dL Low 0.58-0.96 [facility] Comment on above: Order Comment: Speci men Type: BLOOD SPECIMENOrdering Facility: [facility] Address: [address] [place] [address] Performed By: #### 1 9123-9, 27710-20, 34819-9 ####[facility] LABORATORYCLIA [id number] [address] OF [facility] ESTIMATED GLOMERULAR FILTRATION RATE 106 mL/min/1.73m??? Normal >=60 [facility] Comment on above: Order Comment: Sharath lozano Type: BLOOD SPECIMENOrdering Facility: [facility] Address: [address] [place] [address] Result Comment: Lulu mated Glomerular Filtration Rate [...] GFR. Performed By: #### 1 9123-9, 2777-1, 56110-1 ####[facility]ITALCLIA [id number] [place] [address] [place] Glucose [Mass/Vol] 156 mg/dL High 74-99 [facility] Comment on above: Order Comment: Sharath lozano Type: BLOOD SPECIMENOrdering Facility: [facility] Address: [address] [place] [address] Result Comment: The [place] [employer] Association (ADA) provides guidance for cutoff [...] Standards of Medical Care in Diabetes 2016, [place] [employer]. Diabetes Care. 2016.39(Suppl 1). Performed By: #### 1 9123-9, 2777-1, 52492-7 ####[facility] LABORATORYCLIA [id number] [place] [address] [place] Potassium [Moles/Vol] 3.3 mmol/L Low 3.7-5.1 [facility] Comment on above: Order Comment: Sharath [facility] Type: BLOOD SPECIMENOrdering Facility: [facility] Address: [address] [place] [address] Performed By: #### 1 9123-9, 2776-04, ####[facility] LABORATORYCLIA [id number] [place] [address] [place] Sodium [Moles/Vol] 134 mmol/L Low 136-144 [facility] Comment on above: Order Comment: Speci men Type: BLOOD SPECIMENOrdering Facility: [facility] Address: [address] [place] [address] Performed By: #### 1 9123-9, 2776-04, ####[facility] LABORATORYCLIA [id number] [place] [address] [place] Urea nitrogen [Mass/Vol] 7 mg/dL Normal 7-21 [facility] Comment on above: Order Comment: Speci men Type: BLOOD SPECIMENOrdering Facility: [facility] Address: [address] [place] [address] Performed By: #### 1 9123-9, 2776-04, ####[facility] LABORATORYCLIA [id number] [place] [address] [place] Anion gap [Moles/Vol] 10 mmol/L Normal 9-18 [facility] Comment on above: Order Comment: Speci men Type: BLOOD SPECIMENOrdering Facility: [facility] Address: [address] [place] [address] Performed By: #### 2 777-1, 72423-4, ####[facility] LABORATORYCLIA [id number] [place] [address] [place] Calcium [Mass/Vol] 7.6 mg/dL Low 8.5-10.2 [facility] Comment on above: Order Comment: Speci men Type: BLOOD SPECIMENOrdering Facility: [facility] Address: [address] [place] [address] Performed By: #### 2 777-1, 39256-7, ####[facility] LABORATORYCLIA [id number] [address] [place] Chloride [Moles/Vol] 96 mmol/L Low 97-105 [facility] Comment on above: Order Comment: Speci men Type: BLOOD SPECIMENOrdering Facility: [facility] Address: [address] [place] [address] Performed By: #### 2 777-1, 95861-3, ####[facility] LABORATORYCLIA [id number] [place] [id number] [facility] CO2 [Moles/Vol] 27 mmol/L Normal 22-30 [facility] Comment on above: Order Comment: Speci men Type: BLOOD SPECIMENOrdering Facility: [facility] Address: [address] [place] [address] Performed By: #### 2 777-1, 16050-8, ####[facility]ITALCLIA [id number] [address] Creatinine [Mass/Vol] 0.49 mg/dL Low 0.58-0.96 [facility] Comment on above: Order Comment: Speci men Type: BLOOD SPECIMENOrdering Facility: [facility] Address: [address] [place] [address] Performed By: #### 2 777-1, 94664-9, ####[facility]ITALCLIA [id number] [address] ESTIMATED GLOMERULAR FILTRATION RATE 99 mL/min/1.73m??? Normal >=60 [facility] Comment on above: Order Comment: Speci men Type: BLOOD SPECIMENOrdering Facility: [facility] Address: [address] [place] [address] Result Comment: Lulu mated Glomerular Filtration Rate [...] actual GFR. Performed By: #### 2 777-1, 71800-0, ####[facility] LABORATORYCLIA [id number] [place] [address] [place] Glucose [Mass/Vol] 106 mg/dL High 74-99 [facility] Comment on above: Order Comment: Sharath lozano Type: BLOOD SPECIMENOrdering Facility: [facility] Address: [address] [place] [address] Result Comment: The [place] Diabetes Association (ADA) provides guidance for cutoff [...] Standards of Medical Care in Diabetes 2016, [place] [employer]. Diabetes Care. 2016.39(Suppl 1). Performed By: #### 2 777-1, 50849-9, ####[facility] LABORATORYCLIA [id number] [place] [address] [place] Potassium [Moles/Vol] 3.5 mmol/L Low 3.7-5.1 [facility] Comment on above: Order Comment: Sharath lozano Type: BLOOD SPECIMENOrdering Facility: [facility] Address: [address] [id number] Performed By: #### 2 777-1, 92162-6, ####[facility] LABORATORYCLIA [id number] [place] [address] [place] Sodium [Moles/Vol] 133 mmol/L Low 136-144 [facility] Comment on above: Order Comment: Sharath lozano Type: BLOOD SPECIMENOrdering Facility: [facility] Address: [address] [place] [address] Performed By: #### 2 777-1, 75612-9, 23986-0 ####[facility] LABORATORYCLIA [id number] [address] STATES [facility] Urea nitrogen [Mass/Vol] 6 mg/dL Low 7-21 [facility] Comment on above: Order Comment: Speci men Type: BLOOD SPECIMENOrdering Facility: [facility] Address: [address] [place] [address] Performed By: #### 2 777-1, 02721-0, ####[facility] LABORATORYCLIA [id number] [address] OF [facility] CBC panel Auto (Bld)on 10-09 Erythrocyte distribution width (RBC) [Ratio] 13.2 % Normal 11.5-15.0 [facility] Comment on above: Order Comment: Speci men Type: BLOOD SPECIMENOrdering Facility: [facility] Address: [address] [place] [address] Performed By: #### 5 8410-2 ####[facility] LABORATORYCLIA [id number] [address] [place] Hematocrit (Bld) [Volume fraction] 31.9 % Low 36.0-46.0 [facility] Comment on above: Order Comment: Speci men Type: BLOOD SPECIMENOrdering Facility: [facility] Address: [address] [place] [address] Performed By: #### 5 8410-2 ####[facility] LABORATORYCLIA [id number] [address] [place] Hemoglobin (Bld) [Mass/Vol] 11.0 g/dL Low 11.5-15.5 [facility] Comment on above: Order Comment: Speci men Type: BLOOD SPECIMENOrdering Facility: [facility] Address: [address] [place] [address] Performed By: #### 5 8410-2 ####[facility] LABORATORYCLIA [id number] [address] MCH (RBC) [Entitic mass] 32.7 pg Normal 26.0-34.0 [facility] Comment on above: Order Comment: Speci men Type: BLOOD SPECIMENOrdering Facility: [facility] Address: [address] [place] [address] Performed By: #### 5 8410-2 ####[facility] LABORATORYCLIA [id number] [address] MCHC (RBC) [Mass/Vol] 34.5 g/dL Normal 30.5-36.0 [facility] Comment on above: Order Comment: Speci men Type: BLOOD SPECIMENOrdering Facility: [facility] Address: [address] [place] [address] Performed By: #### 5 8410-2 ####[facility] LABORATORYCLIA [id number] [address] MCV (RBC) [Entitic vol] 94.9 fL Normal 80.0-100.0 [facility] Comment on above: Order Comment: Speci men Type: BLOOD SPECIMENOrdering Facility: [facility] Address: [address] [place] [address] Performed By: #### 5 8410-2 ####[facility] LABORATORYCLIA [id number] [address] Nucleated RBC (Bld) [#/Vol] 10*3/uL Normal <0.01 [facility] Comment on above: Order Comment: Speci men Type: BLOOD SPECIMENOrdering Facility: [facility] Address: [address] [place] [address] Performed By: #### 5 8410-2 ####[facility] LABORATORYCLIA [id number] [address] Platelet mean volume (Bld) [Entitic vol] 9.7 fL Normal 9.0-12.7 [facility] Comment on above: Order Comment: Speci men Type: BLOOD SPECIMENOrdering Facility: [facility] Address: [address] [place] [address] Performed By: #### 5 8410-2 ####[facility] LABORATORYCLIA [id number] [address] Platelets (Bld) [#/Vol] 301 10*3/uL Normal 150-400 [facility] Comment on above: Order Comment: Speci men Type: BLOOD SPECIMENOrdering Facility: [facility] Address: [address] [place] [address] Performed By: #### 5 8410-2 ####[facility] LABORATORYCLIA [id number] [address] RBC (Bld) [#/Vol] 3.36 10*6/uL Low 3.90-5.20 [facility] Comment on above: Order Comment: Speci men Type: BLOOD SPECIMENOrdering Facility: [facility] Address: [address] [place] [address] Performed By: #### 5 8410-2 ####[facility] LABORATORYCLIA [id number] [address] WBC (Bld) [#/Vol] 22.01 10*3/uL High 3.70-11.00 [facility] Comment on above: Order Comment: Speci men Type: BLOOD SPECIMENOrdering Facility: [facility] Address: [address] [place] [address] Performed By: #### 5 8410-2 ####[facility] LABORATORYCLIA [id number] [address] Erythrocyte distribution width (RBC) [Ratio] 13.4 % Normal 11.5-15.0 [facility] Comment on above: Order Comment: Speci men Type: BLOOD SPECIMENOrdering Facility: [facility] Address: [address] [place] [address] Performed By: #### 5 8410-2 ####[facility] LABORATORYCLIA [id number] [address] Hematocrit (Bld) [Volume fraction] 28.6 % Low 36.0-46.0 [facility] Comment on above: Order Comment: Speci men Type: BLOOD SPECIMENOrdering Facility: [facility] Address: [address] [place] [address] Performed By: #### 5 8410-2 ####[facility] LABORATORYCLIA [id number] [address] Hemoglobin (Bld) [Mass/Vol] 9.8 g/dL Low 11.5-15.5 [facility] Comment on above: Order Comment: Speci men Type: BLOOD SPECIMENOrdering Facility: [facility] Address: [address] [place] [address] Performed By: #### 5 8410-2 ####[facility] LABORATORYCLIA [id number] [address] MCH (RBC) [Entitic mass] 32.8 pg Normal 26.0-34.0 [facility] Comment on above: Order Comment: Speci men Type: BLOOD SPECIMENOrdering Facility: [facility] Address: [address] [place] [address] Performed By: #### 5 8410-2 ####[facility] LABORATORYCLIA [id number] [address] [place] MCHC (RBC) [Mass/Vol] 34.3 g/dL Normal 30.5-36.0 [facility] Comment on above: Order Comment: Speci men Type: BLOOD SPECIMENOrdering Facility: [facility] Address: [address] [place] [address] Performed By: #### 5 8410-2 ####[facility] LABORATORYCLIA [id number] [address] MCV (RBC) [Entitic vol] 95.7 fL Normal 80.0-100.0 [facility] Comment on above: Order Comment: Speci men Type: BLOOD SPECIMENOrdering Facility: [facility] Address: [address] Performed By: #### 5 8410-2 ####[facility] LABORATORYCLIA [id number] [address] STATES OF [facility] Nucleated RBC (Bld) [#/Vol] 10*3/uL Normal <0.01 [facility] Comment on above: Order Comment: Speci men Type: BLOOD SPECIMENOrdering Facility: [facility] Address: [address] [place] [address] Performed By: #### 5 8410-2 ####[facility] LABORATORYCLIA [id number] [address] [place] Platelet mean volume (Bld) [Entitic vol] 9.9 fL Normal 9.0-12.7 [facility] Comment on above: Order Comment: Speci men Type: BLOOD SPECIMENOrdering Facility: [facility] Address: [address] [place] [address] Performed By: #### 5 8410-2 ####[facility] LABORATORYCLIA [id number] [address] [place] Platelets (Bld) [#/Vol] 273 10*3/uL Normal 150-400 [facility] Comment on above: Order Comment: Speci men Type: BLOOD SPECIMENOrdering Facility: [facility] Address: [address] [place] [address] Performed By: #### 5 8410-2 ####[facility] LABORATORYCLIA [id number] [address] [place] RBC (Bld) [#/Vol] 2.99 10*6/uL Low 3.90-5.20 [facility] Comment on above: Order Comment: Speci men Type: BLOOD SPECIMENOrdering Facility: [facility] Address: [address] [place] [address] Performed By: #### 5 8410-2 ####[facility] LABORATORYCLIA [id number] [address] [place] WBC (Bld) [#/Vol] 10.93 10*3/uL Normal 3.70-11.00 [facility] Comment on above: Order Comment: Speci men Type: BLOOD SPECIMENOrdering Facility: [facility] Address: [address] [place] [address] Performed By: #### 5 8410-2 ####[facility] LABORATORYCLIA [id number] [address] Calcium.ionized [Moles/Vol]o n 10-09-2021 Calcium.ionized (BldV) [Mass/Vol] 1.02 mmol/L Low 1.08-1.30 [facility] Comment on above: Order Comment: Speci men Type: BLOOD SPECIMENOrdering Facility: [facility] Address: [address] [place] [address] Performed By: #### 1 995-0 ####[facility] LABORATORYCLIA [id number] [address] Calcium.ionized adjusted to pH 7.4 (Bld) [Moles/Vol] 1.00 mmol/L Low 1.08-1.30 [facility] Comment on above: Order Comment: Speci men Type: BLOOD SPECIMENOrdering Facility: [facility] Address: [address] [place] [address] Performed By: #### 1 995-0 ####[facility] LABORATORYCLIA [id number] [place] [address] [place] Magnesium SerPl-mCncon 10-09 Magnesium [Mass/Vol] 1.3 mg/dL Low 1.7-2.3 [facility] Comment on above: Order Comment: Speci men Type: BLOOD SPECIMENOrdering Facility: [facility] Address: [address] [place] [address] Performed By: #### 1 9123-9, 2777-1, 95157-0 ####[facility] LABORATORYCLIA [id number] [address] Magnesium [Mass/Vol] 1.5 mg/dL Low 1.7-2.3 [facility] Comment on above: Order Comment: Speci men Type: BLOOD SPECIMENOrdering Facility: [facility] Address: [address] [place] [address] Performed By: #### 2 777-1, 42143-4, ####[facility] LABORATORYCLIA [id number] [address] [place] NURSING PROGon 10-09-2021 NURSING PROG Normal [facility] OPERATIVE NOon 10-09-2021 OPERATIVE NO Normal [facility] Phosphate SerPl-mCncon 10-09 Phosphate [Mass/Vol] 4.3 mg/dL Normal 2.7-4.8 [facility] Comment on above: Order Comment: Speci men Type: BLOOD SPECIMENOrdering Facility: [facility] Address: [address] [place] [address] Performed By: #### 1 9123-9, 2777-1, ####[facility] LABORATORYCLIA [id number] [place] [address] [place] Phosphate [Mass/Vol] 3.8 mg/dL Normal 2.7-4.8 [facility] Comment on above: Order Comment: Speci men Type: BLOOD SPECIMENOrdering Facility: [facility] Address: [address] [place] [address] Performed By: #### 2 777-1, 02005-2, ####[facility] LABORATORYCLIA [id number] [address] [place] THERAPY NTon 10-09-2021 THERAPY NT Normal [facility] [facility] TYPE + SCREENon 10-09-2021 ABO A Normal [facility] Comment on above: Order Comment: Speci men Type: BLOOD SPECIMENOrdering Facility: [facility] Address: [address] [place] [address] Performed By: #### T SCR ####[facility] BLOOD BANKCLIA [id number] [address] HISTORICAL AB SCR STATUS Negative Normal [facility] Comment on above: Order Comment: Speci men Type: BLOOD SPECIMENOrdering Facility: [facility] Address: [address] [place] [address] Performed By: #### T SCR ####[facility] BLOOD BANKCLIA [id number] [address] Rh Nom (Bld) Positive Normal [facility] Comment on above: Order Comment: Speci men Type: BLOOD SPECIMENOrdering Facility: [facility] Address: [address] [place] [address] Performed By: #### T SCR ####[facility] BLOOD BANKCLIA [id number] [address] TYPE AND SCREEN EXPIRATION 10/12/2021 23:59 Normal [facility] Comment on above: Order Comment: Speci men Type: BLOOD SPECIMENOrdering Facility: [facility] Address: [address] [place] [address] Performed By: #### T SCR ####[facility] BLOOD BANKCLIA [id number] [address] OF [facility] XR CHEST 1V FRONTALon 2021 XR CHEST 1V FRONTAL Normal [facility] XR CHEST 1V FRONTAL Normal [facility] 25(OH)D3 [facility] 25-hydroxyvitamin D3 [Mass/Vol] 44.4 ng/mL Normal 30.0-100.0 [facility] Comment on above: Order Comment: Speci men Type: BLOOD SPECIMENOrdering Facility: [facility] Address: [address] [place] [address] Result Comment: Clas sification of 25 [place] Vitamin D status:Deficiency: <= 20.0 ng/ml.Insufficientcy: 21.0-29.0 ng/ml.Sufficiency: >= 30.0 ng/ml. Performed By: #### 1 989-3 ####[facility] LABORATORYCLIA [id number] [place] [address] [place] ALLIED HEALTHon 10-08-2021 ALLIED HEALTH Normal [facility] Basic metabolic 2000 panelon 10-08-2021 Anion gap [Moles/Vol] 9 mmol/L Normal 9-18 [facility] Comment on above: Order Comment: Speci men Type: BLOOD SPECIMENOrdering Facility: [facility] Address: [address] [place] [address] Performed By: #### 2 4321-2, , 2776-04 ####[facility] LABORATORYCLIA [id number] [place] [address] [place] Calcium [Mass/Vol] 7.1 mg/dL Low 8.5-10.2 [facility] Comment on above: Order Comment: Speci men Type: BLOOD SPECIMENOrdering Facility: [facility] Address: [address] [place] [address] Performed By: #### 2 4321-2, , 2776-04 ####[facility] LABORATORYCLIA [id number] [place] [address] [place] Chloride [Moles/Vol] 100 mmol/L Normal 97-105 [facility] Comment on above: Order Comment: Speci men Type: BLOOD SPECIMENOrdering Facility: [facility] Address: [address] [place] [address] Performed By: #### 2 4321-2, , 2776-04 ####[facility] LABORATORYCLIA [id number] [place] [id number] [place] CO2 [Moles/Vol] 24 mmol/L Normal 22-30 [facility] Comment on above: Order Comment: Speci men Type: BLOOD SPECIMENOrdering Facility: [facility] Address: [address] [place] [address] Performed By: #### 2 4321-2, , 2776- ####[facility] LABORATORYCLIA [id number] [place] [address] [place] Creatinine [Mass/Vol] 0.55 mg/dL Low 0.58-0.96 [facility] Comment on above: Order Comment: Sharath lozano Type: BLOOD SPECIMENOrdering Facility: [facility] Address: [address] [id number] Performed By: #### 2 4321-2, , 2776-04 ####[facility] LABORATORYCLIA [id number] [place] [id number] [place] ESTIMATED GLOMERULAR FILTRATION RATE 96 mL/min/1.73m??? Normal >=60 [facility] Comment on above: Order Comment: Sharath lozano Type: BLOOD SPECIMENOrdering Facility: [facility] Address: [address] [place] [address] Result Comment: Lulu mated Glomerular Filtration Rate [...] Performed By: #### 2 4321-2, , 2776-04 ####[facility] LABORATORYCLIA [id number] [place] [address] [place] Glucose [Mass/Vol] 108 mg/dL High 74-99 [facility] Comment on above: Order Comment: Sharath lozano Type: BLOOD SPECIMENOrdering Facility: [facility] Address: [address] Result Comment: The [place] [employer] (ADA) provides guidance for cutoff [...] Standards of Medical Care in Diabetes 2016, [place] [employer]. Diabetes Care. 2016.39(Suppl 1). Performed By: #### 2 4321-2, , 2776-04 ####[facility] LABORATORYCLIA [id number] [place] [address] [place] Potassium [Moles/Vol] 3.5 mmol/L Low 3.7-5.1 [facility] Comment on above: Order Comment: Speci men Type: BLOOD SPECIMENOrdering Facility: [facility] Address: [address] [place] [address] Performed By: #### 2 4321-2, , 2776-04 ####[facility] LABORATORYCLIA [id number] [address] STATES OF [facility] Sodium [Moles/Vol] 133 mmol/L Low 136-144 [facility] Comment on above: Order Comment: Speci men Type: BLOOD SPECIMENOrdering Facility: [facility] Address: [address] [place] [address] Performed By: #### 2 4321-2, , 2776-04 ####[facility] LABORATORYCLIA [id number] [address] STATES [facility] Urea nitrogen [Mass/Vol] 6 mg/dL Low 7-21 [facility] Comment on above: Order Comment: Speci men Type: BLOOD SPECIMENOrdering Facility: [facility] Address: [address] [address] Performed By: #### 2 4321-2, , 2776-04 ####[facility] LABORATORYCLIA [id number] [address] [place] CBC panel Auto (Bld)on 10-08 Erythrocyte distribution width (RBC) [Ratio] 13.3 % Normal 11.5-15.0 [facility] Comment on above: Order Comment: Speci men Type: BLOOD SPECIMENOrdering Facility: [facility] Address: [address] [address] Performed By: #### 5 8410-2 ####[facility] LABORATORYCLIA [id number] [address] Hematocrit (Bld) [Volume fraction] 28.3 % Low 36.0-46.0 [facility] Comment on above: Order Comment: Speci men Type: BLOOD SPECIMENOrdering Facility: [facility] Address: [address] [place] [address] Performed By: #### 5 8410-2 ####[facility] LABORATORYCLIA [id number] [address] Hemoglobin (Bld) [Mass/Vol] 9.4 g/dL Low 11.5-15.5 [facility] Comment on above: Order Comment: Speci men Type: BLOOD SPECIMENOrdering Facility: [facility] Address: [address] [place] [address] Performed By: #### 5 8410-2 ####[facility] LABORATORYCLIA [id number] [address] MCH (RBC) [Entitic mass] 32.8 pg Normal 26.0-34.0 [facility] Comment on above: Order Comment: Speci men Type: BLOOD SPECIMENOrdering Facility: [facility] Address: [address] [place] [address] Performed By: #### 5 8410-2 ####[facility] LABORATORYCLIA [id number] [address] OF [facility] MCHC (RBC) [Mass/Vol] 33.2 g/dL Normal 30.5-36.0 [facility] Comment on above: Order Comment: Speci men Type: BLOOD SPECIMENOrdering Facility: [facility] Address: [address] [place] [address] Performed By: #### 5 8410-2 ####[facility] LABORATORYCLIA [id number] [address] MCV (RBC) [Entitic vol] 98.6 fL Normal 80.0-100.0 [facility] Comment on above: Order Comment: Speci men Type: BLOOD SPECIMENOrdering Facility: [facility] Address: [address] [place], [place] [address] Performed By: #### 5 8410-2 ####[facility] LABORATORYCLIA [id number] [address] Nucleated RBC (Bld) [#/Vol] 10*3/uL Normal <0.01 [facility] Comment on above: Order Comment: Speci men Type: BLOOD SPECIMENOrdering Facility: [facility] Address: [address] [place], [place] [address] Performed By: #### 5 8410-2 ####[facility] LABORATORYCLIA [id number] [address] STATES [place] Platelet mean volume (Bld) [Entitic vol] 10.1 fL Normal 9.0-12.7 [facility] Comment on above: Order Comment: Speci men Type: BLOOD SPECIMENOrdering Facility: [facility] Address: [address] [place], [place] [address] Performed By: #### 5 8410-2 ####[facility] LABORATORYCLIA [id number] [address] Platelets (Bld) [#/Vol] 262 10*3/uL Normal 150-400 [facility] Comment on above: Order Comment: Speci men Type: BLOOD SPECIMENOrdering Facility: [facility] Address: [address] [place], [place] [address] Performed By: #### 5 8410-2 ####[facility] LABORATORYCLIA [id number] [address] OF [place] RBC (Bld) [#/Vol] 2.87 10*6/uL Low 3.90-5.20 [facility] Comment on above: Order Comment: Speci men Type: BLOOD SPECIMENOrdering Facility: [facility] Address: [address] [place], [place] [address] Performed By: #### 5 8410-2 ####[facility] LABORATORYCLIA [id number] [address] STATES OF [facility] WBC (Bld) [#/Vol] 7.41 10*3/uL Normal 3.70-11.00 [facility] Comment on above: Order Comment: Speci men Type: BLOOD SPECIMENOrdering Facility: [facility] Address: [address] [place] [address] Performed By: #### 5 8410-2 ####[facility] LABORATORYCLIA [id number] [address] OF [place] Calcium.ionized [Moles/Vol]o n 10-08-2021 Calcium.ionized (BldV) [Mass/Vol] 0.99 mmol/L Low 1.08-1.30 [facility] Comment on above: Order Comment: Speci men Type: BLOOD SPECIMENOrdering Facility: [facility] Address: [address] [place] [address] Performed By: #### 1 995-0 ####[facility] LABORATORYCLIA [id number] [address] Calcium.ionized adjusted to pH 7.4 (Bld) [Moles/Vol] 0.96 mmol/L Low 1.08-1.30 [facility] Comment on above: Order Comment: Speci men Type: BLOOD SPECIMENOrdering Facility: [facility] Address: [address] [place] [address] Performed By: #### 1 995-0 ####[facility] LABORATORYCLIA [id number] [address] OF [place] Magnesium SerPl-mCncon 10-08 Magnesium [Mass/Vol] 1.8 mg/dL Normal 1.7-2.3 [facility] Comment on above: Order Comment: Speci men Type: BLOOD SPECIMENOrdering Facility: [facility] Address: [address] [place] [address] Performed By: #### 2 4321-2, 36557-0, 2777-1 ####[facility] LABORATORYCLIA [id number] [place], [place] [address] [place] [address] OF [place] Phosphate [facility] 10-08 Phosphate [Mass/Vol] 3.4 mg/dL Normal 2.7-4.8 [facility] Comment on above: Order Comment: Speci men Type: BLOOD SPECIMENOrdering Facility: [facility] Address: [address] [place] [address] Performed By: #### 2 4321-2, 50428-0, 2777- ####[facility] LABORATORYCLIA [id number] [address] OF [place] THERAPY NTon 10-08-2021 THERAPY NT Normal [facility] XR CHEST 1V FRONTALon 2021 XR CHEST 1V FRONTAL Normal [facility] 25(OH)D3 [facility] 2021 25-hydroxyvitamin D3 [Mass/Vol] 50.5 ng/mL Normal 30.0-100.0 [facility] Comment on above: Order Comment: Speci men Type: BLOOD SPECIMENOrdering Facility: [facility] Address: [address] [place] [address] Result Comment: Clas sification of 25 [place] Vitamin D status:Deficiency: <= 20.0 ng/ml.Insufficientcy: 21.0-29.0 ng/ml.Sufficiency: >= 30.0 ng/ml. Performed By: #### 1 989-3 ####[facility] LABORATORYCLIA [id number] [address] [place] ALLIED HEALTHon 10-07-2021 ALLIED HEALTH Normal [facility] ALLIED HEALTH Normal [facility] ALLIED HEALTH Normal [facility] ALLIED HEALTH Normal [facility] ALLIED HEALTH Normal [facility] Basic metabolic 2000 panelon 10-07-2021 Anion gap [Moles/Vol] 8 mmol/L Low - [facility] Comment on above: Order Comment: Speci men Type: BLOOD SPECIMENOrdering Facility: [facility] Address: [address] [place] [address] Performed By: #### 2 4321-2, 2776-, ####[facility] LABORATORYCLIA [id number] [place] [address] [place] Calcium [Mass/Vol] 7.1 mg/dL Low 8.5-10.2 [facility] Comment on above: Order Comment: Speci men Type: BLOOD SPECIMENOrdering Facility: [facility] Address: [address] [place], [place] [address] Performed By: #### 2 4321-2, 2776-04, ####[facility] LABORATORYCLIA [id number] [place] [address] [place] Chloride [Moles/Vol] 99 mmol/L Normal 97-105 [facility] Comment on above: Order Comment: Speci men Type: BLOOD SPECIMENOrdering Facility: [facility] Address: [address] [place] [address] Performed By: #### 2 4321-2, 2776-04, ####[facility] LABORATORYCLIA [id number] [place] [address] [place] CO2 [Moles/Vol] 24 mmol/L Normal 22-30 [facility] Comment on above: Order Comment: Speci men Type: BLOOD SPECIMENOrdering Facility: [facility] Address: [address] [place], [place] [address] Performed By: #### 2 4321-2, 2776-04, ####[facility] LABORATORYCLIA [id number] [place] [address] [place] Creatinine [Mass/Vol] 0.51 mg/dL Low 0.58-0.96 [facility] Comment on above: Order Comment: Speci men Type: BLOOD SPECIMENOrdering Facility: [facility] Address: [address] [place], [place] [address] Performed By: #### 2 4321-2, 2776-04, ####[facility] LABORATORYCLIA [id number] [place] [address] [place] ESTIMATED GLOMERULAR FILTRATION RATE 98 mL/min/1.73m??? Normal >=60 [facility] Comment on above: Order Comment: Cathymoe lozano Type: BLOOD SPECIMENOrdering Facility: [facility] Address: [address] [place], [place] [address] Result Comment: Lulu mated Glomerular Filtration Rate [...] GFR. Performed By: #### 2 4321-2, 2777-, ####[facility] LABORATORYCLIA [id number] [place] [address] [place] Glucose [Mass/Vol] 112 mg/dL High 74-99 [facility] Comment on above: Order Comment: Sharath lozano Type: BLOOD SPECIMENOrdering Facility: [facility] Address: [address] [place] [address] Result Comment: The [place] Diabetes [employer] (ADA) provides guidance for cutoff [...] Standards of Medical Care in Diabetes 2016, [place] [employer]. Diabetes Care. 2016.39(Suppl 1). Performed By: #### 2 4321-2, 2777-, ####[facility] LABORATORYCLIA [id number] [place] [id number] [place] Potassium [Moles/Vol] 3.6 mmol/L Low 3.7-5.1 [facility] Comment on above: Order Comment: Speci men Type: BLOOD SPECIMENOrdering Facility: [facility] Address: [address] [place] [address] Performed By: #### 2 4321-2, 2776-04, ####[facility] LABORATORYCLIA [id number] [address] STATES OF [facility] Sodium [Moles/Vol] 131 mmol/L Low 136-144 [facility] Comment on above: Order Comment: Speci men Type: BLOOD SPECIMENOrdering Facility: [facility] Address: [address] [place] [address] Performed By: #### 2 4321-2, 2776-04, ####[facility] LABORATORYCLIA [id number] [address] STATES [place] Urea nitrogen [Mass/Vol] 10 mg/dL Normal 7-21 [facility] Comment on above: Order Comment: Speci men Type: BLOOD SPECIMENOrdering Facility: [facility] Address: [address] [place] [address] Performed By: #### 2 4321-2, 2776-04, ####[facility] LABORATORYCLIA [id number] [address] [place] Basophil percentageon 2021 Basophil percentage 10-25 SEEN /hpf 0-5 [facility] Work Phone: Bilirubin Test strip Ql (U)o n 10-07-2021 Bilirubin Ql (U) Negative Negative [facility] Work Phone: CBC panel Auto (Bld)on 10-07 Erythrocyte distribution width (RBC) [Ratio] 13.3 % Normal 11.5-15.0 [facility] Comment on above: Order Comment: Speci men Type: BLOOD SPECIMENOrdering Facility: [facility] Address: [address] [place] [address] Performed By: #### 5 8410-2 ####[facility] LABORATORYCLIA [id number] [address] OF [facility] Hematocrit (Bld) [Volume fraction] 28.4 % Low 36.0-46.0 [facility] Comment on above: Order Comment: Speci men Type: BLOOD SPECIMENOrdering Facility: [facility] Address: [address] [place] [address] Performed By: #### 5 8410-2 ####[facility] LABORATORYCLIA [id number] [address] OF [facility] Hemoglobin (Bld) [Mass/Vol] 9.6 g/dL Low 11.5-15.5 [facility] Comment on above: Order Comment: Speci men Type: BLOOD SPECIMENOrdering Facility: [facility] Address: [address] [place] [address] Performed By: #### 5 8410-2 ####[facility] LABORATORYCLIA [id number] [address] MCH (RBC) [Entitic mass] 32.1 pg Normal 26.0-34.0 [facility] Comment on above: Order Comment: Speci men Type: BLOOD SPECIMENOrdering Facility: [facility] Address: [address] [place] [address] Performed By: #### 5 8410-2 ####[facility] LABORATORYCLIA [id number] [address] STATES [place] MCHC (RBC) [Mass/Vol] 33.8 g/dL Normal 30.5-36.0 [facility] Comment on above: Order Comment: Speci men Type: BLOOD SPECIMENOrdering Facility: [facility] Address: [address] [place] [address] Performed By: #### 5 8410-2 ####[facility] LABORATORYCLIA [id number] [address] MCV (RBC) [Entitic vol] 95.0 fL Normal 80.0-100.0 [facility] Comment on above: Order Comment: Speci men Type: BLOOD SPECIMENOrdering Facility: [facility] Address: [address] Performed By: #### 5 8410-2 ####[facility] LABORATORYCLIA [id number] [address] Nucleated RBC (Bld) [#/Vol] 10*3/uL Normal <0.01 [facility] Comment on above: Order Comment: Speci men Type: BLOOD SPECIMENOrdering Facility: [facility] Address: [address] [place] [address] Performed By: #### 5 8410-2 ####[facility] LABORATORYCLIA [id number] [address] Platelet mean volume (Bld) [Entitic vol] 9.7 fL Normal 9.0-12.7 [facility] Comment on above: Order Comment: Speci men Type: BLOOD SPECIMENOrdering Facility: [facility] Address: [address] [place] [address] Performed By: #### 5 8410-2 ####[facility] LABORATORYCLIA [id number] [address] Platelets (Bld) [#/Vol] 266 10*3/uL Normal 150-400 [facility] Comment on above: Order Comment: Speci men Type: BLOOD SPECIMENOrdering Facility: [facility] Address: [address] [place] [address] Performed By: #### 5 8410-2 ####[facility] LABORATORYCLIA [id number] [address] [place] RBC (Bld) [#/Vol] 2.99 10*6/uL Low 3.90-5.20 [facility] Comment on above: Order Comment: Speci men Type: BLOOD SPECIMENOrdering Facility: [facility] Address: [address] [place] [address] Performed By: #### 5 8410-2 ####[facility] LABORATORYCLIA [id number] [address] WBC (Bld) [#/Vol] 8.53 10*3/uL Normal 3.70-11.00 [facility] Comment on above: Order Comment: Speci men Type: BLOOD SPECIMENOrdering Facility: [facility] Address: [address] [place] [address] Performed By: #### 5 8410-2 ####[facility] LABORATORYCLIA [id number] [address] Erythrocyte distribution width (RBC) [Ratio] 13.2 % Normal 11.5-15.0 [facility] Comment on above: Order Comment: Speci men Type: BLOOD SPECIMENOrdering Facility: [facility] Address: [address] [place] [address] Performed By: #### 5 8410-2 ####[facility] LABORATORYCLIA [id number] [address] Hematocrit (Bld) [Volume fraction] 29.7 % Low 36.0-46.0 [facility] Comment on above: Order Comment: Speci men Type: BLOOD SPECIMENOrdering Facility: [facility] Address: [address] [place] [address] Performed By: #### 5 8410-2 ####[facility] LABORATORYCLIA [id number] [address] OF [facility] Hemoglobin (Bld) [Mass/Vol] 10.2 g/dL Low 11.5-15.5 [facility] Comment on above: Order Comment: Speci men Type: BLOOD SPECIMENOrdering Facility: [facility] Address: [address] [place] [address] Performed By: #### 5 8410-2 ####[facility] LABORATORYCLIA [id number] [address] MCH (RBC) [Entitic mass] 32.4 pg Normal 26.0-34.0 [facility] Comment on above: Order Comment: Speci men Type: BLOOD SPECIMENOrdering Facility: [facility] Address: [address] [address] Performed By: #### 5 8410-2 ####[facility] LABORATORYCLIA [id number] [address] MCHC (RBC) [Mass/Vol] 34.3 g/dL Normal 30.5-36.0 [facility] Comment on above: Order Comment: Speci men Type: BLOOD SPECIMENOrdering Facility: [facility] Address: [address] [place] [address] Performed By: #### 5 8410-2 ####[facility] [facility] LABORATORYCLIA [id number] [address] MCV (RBC) [Entitic vol] 94.3 fL Normal 80.0-100.0 [facility] Comment on above: Order Comment: Speci men Type: BLOOD SPECIMENOrdering Facility: [facility] Address: [address] [place] [address] Performed By: #### 5 8410-2 ####[facility] LABORATORYCLIA [id number] [address] Nucleated RBC (Bld) [#/Vol] 10*3/uL Normal <0.01 [facility] Comment on above: Order Comment: Speci men Type: BLOOD SPECIMENOrdering Facility: [facility] Address: [address] [place] [address] Performed By: #### 5 8410-2 ####[facility] LABORATORYCLIA [id number] [address] Platelet mean volume (Bld) [Entitic vol] 9.9 fL Normal 9.0-12.7 [facility] Comment on above: Order Comment: Speci men Type: BLOOD SPECIMENOrdering Facility: [facility] Address: [address] [place] [address] Performed By: #### 5 8410-2 ####[facility] LABORATORYCLIA [id number] [address] [place] Platelets (Bld) [#/Vol] 308 10*3/uL Normal 150-400 [facility] Comment on above: Order Comment: Speci men Type: BLOOD SPECIMENOrdering Facility: [facility] Address: [address] [place] [address] Performed By: #### 5 8410-2 ####[facility] LABORATORYCLIA [id number] [address] STATES OF [facility] RBC (Bld) [#/Vol] 3.15 10*6/uL Low 3.90-5.20 [facility] Comment on above: Order Comment: Speci men Type: BLOOD SPECIMENOrdering Facility: [facility] Address: [address] [place] [address] Performed By: #### 5 8410-2 ####[facility] LABORATORYCLIA [id number] [address] [place] [facility] WBC (Bld) [#/Vol] 18.90 10*3/uL High 3.70-11.00 [facility] Comment on above: Order Comment: Speci men Type: BLOOD SPECIMENOrdering Facility: [facility] Address: [address] [place] [address] Performed By: #### 5 8410-2 ####[facility] LABORATORYCLIA [id number] [address] CONFIRM BLOOD TYPEon 022 ABO A Normal [facility] Comment on above: Order Comment: Speci men Type: BLOOD SPECIMENOrdering Facility: [facility] Address: [address] [place] [address] Performed By: #### C ONABO ####[facility] BLOOD BANKCLIA [id number] [address] Rh Nom (Bld) Positive Normal [facility] Comment on above: Order Comment: Speci men Type: BLOOD SPECIMENOrdering Facility: [facility] Address: [address] [place] [address] Performed By: #### C ONABO ####[facility] BLOOD BANKCLIA [id number] [address] [place] CONSULTon 10-07-2021 CONSULT Normal [facility] CONSULT Normal [facility] CT BRAIN WO IVCONon 10-08-[address] BRAIN WO IVCON Normal [facility] CT BRAIN WO IVCON Normal [facility] CT CERVICAL SPINE WO IVCONon 10-07-2021 CT CERVICAL SPINE WO IVCON Normal [facility] CT CHEST WO IVCONon 10-08-[address] CHEST WO IVCON Normal [facility] CTA HEAD W IVCONon 2 CTA HEAD W IVCON Normal [facility] CTA NECK W IVCONon 2 CTA NECK W IVCON Normal [facility] Calcium.ionized [Moles/Vol]o n 10-07-2021 Calcium.ionized (BldV) [Mass/Vol] 1.00 mmol/L Low 1.08-1.30 [facility] Comment on above: Order Comment: Speci men Type: BLOOD SPECIMENOrdering Facility: [facility] Address: [address] [place] [address] Performed By: #### 1 995-0 ####[facility] LABORATORYCLIA [id number] [address] Calcium.ionized adjusted to pH 7.4 (Bld) [Moles/Vol] 0.96 mmol/L Low 1.08-1.30 [facility] Comment on above: Order Comment: Speci men Type: BLOOD SPECIMENOrdering Facility: [facility] Address: [address] [address] Performed By: #### 1 995-0 ####[facility] LABORATORYCLIA [id number] [address] [place] Comprehensive metabolic 2000 panelon 10-07-2021 Albumin [Mass/Vol] 4.0 g/dL Normal 3.9-4.9 [facility] Comment on above: Order Comment: Speci men Type: BLOOD SPECIMENOrdering Facility: [facility] Address: [address] [place] [address] Performed By: #### 2 4323-8 ####[facility] LABORATORYCLIA [id number] [place], [place] [address] [place] [address] [place] ALP [Catalytic activity/Vol] 66 U/L Normal 34-123 [facility] Comment on above: Order Comment: Speci men Type: BLOOD SPECIMENOrdering Facility: [facility] Address: [address] [place] [address] Performed By: #### 2 4323-8 ####[facility] LABORATORYCLIA [id number] [address] [place] ALT With P-5'-P [Catalytic activity/Vol] 21 U/L Normal 7-38 [facility] Comment on above: Order Comment: Speci men Type: BLOOD SPECIMENOrdering Facility: [facility] Address: [address] [place] [address] Performed By: #### 2 4323-8 ####[facility] LABORATORYCLIA [id number] [address] Anion gap [Moles/Vol] 10 mmol/L Normal 9-18 [facility] Comment on above: Order Comment: Speci men Type: BLOOD SPECIMENOrdering Facility: [facility] Address: [address] [place] [address] Performed By: #### 2 4323-8 ####[facility] LABORATORYCLIA [id number] [address] [place] AST With P-5'-P [Catalytic activity/Vol] 39 U/L High 13-35 [facility] Comment on above: Order Comment: Speci men Type: BLOOD SPECIMENOrdering Facility: [facility] Address: [address] [place] [address] Performed By: #### 2 4323-8 ####[facility] LABORATORYCLIA [id number] [address] [place] Bilirubin [Mass/Vol] 0.5 mg/dL Normal 0.2-1.3 [facility] Comment on above: Order Comment: Speci men Type: BLOOD SPECIMENOrdering Facility: [facility] Address: [address] [address] Performed By: #### 2 4323-8 ####[facility] LABORATORYCLIA [id number] [address] [place] Calcium [Mass/Vol] 8.1 mg/dL Low 8.5-10.2 [facility] Comment on above: Order Comment: Speci men Type: BLOOD SPECIMENOrdering Facility: [facility] Address: [address] [place] [address] Performed By: #### 2 4323-8 ####[facility] LABORATORYCLIA [id number] [place] [address] [place] Chloride [Moles/Vol] 93 mmol/L Low 97-105 [facility] Comment on above: Order Comment: Speci men Type: BLOOD SPECIMENOrdering Facility: [facility] Address: [address] [place] [address] Performed By: #### 2 4323-8 ####[facility] LABORATORYCLIA [id number] [address] [place] CO2 [Moles/Vol] 25 mmol/L Normal 22-30 [facility] Comment on above: Order Comment: Speci men Type: BLOOD SPECIMENOrdering Facility: [facility] Address: [address] [place] [address] Performed By: #### 2 4323-8 ####[facility] LABORATORYCLIA [id number] [address] [place] Creatinine [Mass/Vol] 0.60 mg/dL Normal 0.58-0.96 [facility] Comment on above: Order Comment: Speci men Type: BLOOD SPECIMENOrdering Facility: [facility] Address: [address] [place] [address] Performed By: #### 2 4323-8 ####[facility] LABORATORYCLIA [id number] [address] ESTIMATED GLOMERULAR FILTRATION RATE 94 mL/min/1.73m??? Normal >=60 [facility] Comment on above: Order Comment: Sharath lozano Type: BLOOD SPECIMENOrdering Facility: [facility] Address: [address] [place], [place] [address] Result Comment: Lulu mated Glomerular Filtration Rate [...] actual GFR. Performed By: #### 2 4323-8 ####[facility] LABORATORYCLIA [id number] [place] [address] [place] Glucose [Mass/Vol] 143 mg/dL High 74-99 [facility] Comment on above: Order Comment: Sharath lozano Type: BLOOD SPECIMENOrdering Facility: [facility] Address: [address] [place], [place] [address] Result Comment: The [place] [employer] (ADA) provides guidance for cutoff [...] Standards of Medical Care in Diabetes 2016, [place] [employer]. Diabetes Care. 2016.39(Suppl 1). Performed By: #### 2 4323-8 ####[facility] LABORATORYCLIA [id number] [place] [address] [place] Potassium [Moles/Vol] 3.8 mmol/L Normal 3.7-5.1 [facility] Comment on above: Order Comment: Sharath lozano Type: BLOOD SPECIMENOrdering Facility: [facility] Address: [address] [address] Performed By: #### 2 4323-8 ####[facility]ORATORYCLIA [id number] [address] [place] Protein [Mass/Vol] 6.0 g/dL Low 6.3-8.0 [facility] Comment on above: Order Comment: Speci men Type: BLOOD SPECIMENOrdering Facility: [facility] Address: [address] [place] [address] Performed By: #### 2 4323-8 ####[facility] LABORATORYCLIA [id number] [address] [place] Sodium [Moles/Vol] 128 mmol/L Low 136-144 [facility] Comment on above: Order Comment: Speci men Type: BLOOD SPECIMENOrdering Facility: [facility] Address: [address] [place] [address] Performed By: #### 2 4323-8 ####[facility] LABORATORYCLIA [id number] [address] [place] Urea nitrogen [Mass/Vol] 16 mg/dL Normal 7-21 [facility] Comment on above: Order Comment: Speci men Type: BLOOD SPECIMENOrdering Facility: [facility] Address: [address] [place] [address] Performed By: #### 2 4323-8 ####[facility] LABORATORYCLIA [id number] [address] [place] ED NOTEon 10-07-2021 ED NOTE HNO ID: [id number] Author: Catherine Covarrubias RN Service: ? Author Type: Registered Nurse Type: ED Notes Filed: 10/07/2021 2:48 AM Note Text: Bed: 19-ED Expected date: Expected time: Means of arrival: Comments: T2-transfer Normal [facility] ED NOTE HNO ID: [id number] Author: Giuliana Rodriguez RN Service: Emergency Medicine Author Type: Registered Nurse Type: ED Notes Filed: 10/07/2021 2:36 AM Note Text: Chest tube + for bloody output Levin +clear yellow urine Normal [facility] ED NOTE Normal [facility] ED PROV NOTEon 10-07-2021 ED PROV NOTE Normal [facility] Ethanol SerPl-mCncon 022 Ethanol [Mass/Vol] mg/dL Normal <11 [facility] Comment on above: Order Comment: Speci men Type: BLOOD SPECIMENOrdering Facility: [facility] Address: [address] [place] [address] Performed By: #### 5 643-2 ####[facility] LABORATORYCLIA [id number] [place] [address] [place] HISTORY PHYSICALon HISTORY PHYSICAL Normal [facility] INR in Blood by Coagulation assayon 10-07-2021 INR Coag (Bld) [Relative time] 1.2 {INR} [facility] Work Phone: Ketones Test strip Ql (U)on 10-07-2021 Ketones Ql (U) Negative Negative [facility] Work Phone: Laboratory - Coagulationon 0 10-07-2021 aPTT Coag (Bld) [Time] 29.6 s 24.1-36.2 [facility] Work Phone: PT Coag (PPP) [Time] 14.6 s 11.7-14.9 [facility] Work Phone: Magnesium SerPl-mCncon 10-07 Magnesium [Mass/Vol] 2.2 mg/dL Normal 1.7-2.3 [facility] Comment on above: Order Comment: Speci men Type: BLOOD SPECIMENOrdering Facility: [facility] Address: [address] [place] [address] Performed By: #### 2 4321-2, 2777-1, 04571-3 ####[facility] LABORATORYCLIA [id number] [place] [address] [place] Magnesium [Mass/Vol] 1.5 mg/dL Low 1.7-2.3 [facility] Comment on above: Order Comment: Speci men Type: BLOOD SPECIMENOrdering Facility: [facility] Address: [address] [place] [address] Performed By: #### 1 9123-9, 2777-1 ####[facility] LABORATORYCLIA [id number] [address] [place] Mucus LM Ql (Urine sed)on Mucus Ql (Urine sed) 0 SEEN /hpf [facility] Work Phone: Nitrite Test strip Ql (U)on 10-07-2021 Nitrite Ql (U) Negative Negative [facility] Work Phone: PT panel Coag (PPP)on 2021 INR Coag (PPP) [Relative time] 1.0 {INR} Normal 0.9-1.3 [facility] Comment on above: Order Comment: Speci men Type: BLOOD SPECIMENOrdering Facility: [facility] Address: [address] [place] [address] Result Comment: Ana min K Antagonist (VKA) Therapeutic Range: INR 2 to 3 (Target INR of 2.5)Note: For patients treated with VKA drugs, such as warfarin, the [place] [employer] 2012 Guideline recommends [...] al. Chest 2012, 141:7S-47SNishimura RA, et al. [facility] 2017, 70: 252-289 Performed By: #### 1 4979-9, 94729-4 ####[facility] LABORATORYCLIA [id number] [address] [place] PT Coag (PPP) [Time] 11.1 s Normal 9.7-13.0 [facility] Comment on above: Order Comment: Speci men Type: BLOOD SPECIMENOrdering Facility: [facility] Address: [address] [place] [address] Performed By: #### 1 4979-9, 78355-6 ####[facility] LABORATORYCLIA [id number] [place] [place] [id number] [place] Phosphate SerPl-mCncon 10-07 Phosphate [Mass/Vol] 3.4 mg/dL Normal 2.7-4.8 [facility] Comment on above: Order Comment: Speci men Type: BLOOD SPECIMENOrdering Facility: [facility] Address: [address] [place] [address] Performed By: #### 2 4321-2, 2777-1, 48518-7 ####[facility] LABORATORYCLIA [id number] [place] [address] [place] Phosphate [Mass/Vol] 3.4 mg/dL Normal 2.7-4.8 [facility] Comment on above: Order Comment: Speci men Type: BLOOD SPECIMENOrdering Facility: [facility] Address: [address] [place] [address] Performed By: #### 1 9123-9, 2777-1 ####[facility] LABORATORYCLIA [id number] [place] [address] [place] Protein Test strip Ql (U)on 10-07-2021 Protein Ql (U) 15 mg/dl Negative [facility] Work Phone: SARS-CoV-2 RNA Resp Ql LEONA+p robeon 10-07-2021 SARS-CoV-2 (COVID-19) RNA LEONA+probe Ql (Resp) COVID 19 RESULT: SARS-CoV-2 (Agent of COVID-19) Not Detected by RT-PCR or equivalent method. This test has been authorized by FDA under an Emergency Use Authorization (EUA). Normal [facility] Comment on above: Performed By: #### 9 4500-6 ####[facility] LABORATORYCLIA [id number] [place] [address] [place] STAPH AUREUS PCRon 2 S. aureus and MRSA panel LEONA+probe (Nose) Normal Negative [facility] Comment on above: Order Comment: Speci men Type: SWAB OF INTERNAL NOSEOrdering Facility: [facility] Address: [address] [place] [address] Result Comment: Nega tive for Staphylococcus aureus by PCR.Negative for MRSA by PCR Performed By: #### S APCR ####[facility] LABORATORYCLIA [id number] [place] [address] [place] Squamous epithelial cells de tection in urine sediment by light microscopyon 10-07-2021 Epithelial cells.squamous LM Ql (Urine sed) 0 SEEN /hpf 5-10 [facility] Work Phone: TOX SCREEN ROUT URon 022 Amphetamines Confirm (U) [Mass/Vol] Negative Normal Negative [facility] Comment on above: Order Comment: Speci men Type: URINE SPECIMENOrdering Facility: [facility] Address: [address] [place] [address] Result Comment: Cuto ff threshold at 1000 ng/mL. Performed By: #### U TOX2 ####[facility] LABORATORYCLIA [id number] [place] [address] [place] BARBITURATES, URINE Negative Normal Negative [facility] Comment on above: Order Comment: Speci men Type: URINE SPECIMENOrdering Facility: [facility] Address: [address] [place] [address] Result Comment: Cuto ff threshold at 200 ng/mL. Performed By: #### U TOX2 ####[facility] LABORATORYCLIA [id number] [place] [address] [place] BENZODIAZEPINES, UR Negative Normal Negative [facility] Comment on above: Order Comment: Speci men Type: URINE SPECIMENOrdering Facility: [facility] Address: [address] [place] [address] Result Comment: Cuto ff threshold at 200 ng/mL. Performed By: #### U TOX2 ####[facility] LABORATORYCLIA [id number] [place] [address] [place] [facility] [place] CANNABINOIDS,URINE Negative Normal Negative [facility] Comment on above: Order Comment: Speci men Type: URINE SPECIMENOrdering Facility: [facility] Address: [address] [place] [address] Result Comment: Cuto ff threshold at 50 ng/mL. Performed By: #### U TOX2 ####[facility] LABORATORYCLIA [id number] [place] [address] [place] Cocaine Ql (U) Negative Normal Negative [facility] Comment on above: Order Comment: Speci men Type: URINE SPECIMENOrdering Facility: [facility] Address: [address] [place] [address] Result Comment: Cuto ff threshold at 300 ng/mL. Performed By: #### U TOX2 ####[facility] LABORATORYCLIA [id number] [address] Ethanol (U) [Mass/Vol] <11 Normal <11 [facility] Comment on above: Order Comment: Speci men Type: URINE SPECIMENOrdering Facility: [facility] Address: [address] [place] [address] Performed By: #### U TOX2 ####[facility] LABORATORYCLIA [id number] [address] [place] Opiates Screen Ql (U) Positive Abnormal Negative [facility] Comment on above: Order Comment: Speci men Type: URINE SPECIMENOrdering Facility: [facility] Address: [address] [place] [address] Result Comment: Cuto ff threshold at 300 ng/mL. Performed By: #### U TOX2 ####[facility] LABORATORYCLIA [id number] [place] [address] [place] oxyCODONE cutoff Screen (U) [Mass/Vol] Negative Normal Negative [facility] Comment on above: Order Comment: Speci men Type: URINE SPECIMENOrdering Facility: [facility] Address: [address] [place] [address] Result Comment: Cuto ff threshold at 100 ng/mL. Performed By: #### U TOX2 ####[facility] LABORATORYCLIA [id number] [address] Phencyclidine Ql (U) Negative Normal Negative [facility] Comment on above: Order Comment: Speci men Type: URINE SPECIMENOrdering Facility: [facility] Address: [address] [place] [address] Result Comment: Cuto ff threshold at 25 ng/mL. Performed By: #### U TOX2 ####[facility] LABORATORYCLIA [id number] [address] TYPE + SCREENon 10-07-2021 ABO A Normal [facility] Comment on above: Order Comment: Speci men Type: BLOOD SPECIMENOrdering Facility: [facility] Address: [address] [place] [address] Performed By: #### T SCR ####[facility] BLOOD BANKCLIA [id number] [address] HISTORICAL AB SCR STATUS Negative [facility] Comment on above: Order Comment: Speci men Type: BLOOD SPECIMENOrdering Facility: [facility] Address: [address] [place] [address] Performed By: #### T SCR ####[facility] BLOOD BANKCLIA [id number] [address] Rh Nom (Bld) Positive Normal [facility] Comment on above: Order Comment: Speci men Type: BLOOD SPECIMENOrdering Facility: [facility] Address: [address] [place] [address] Performed By: #### T SCR ####[facility] BLOOD BANKCLIA [id number] [address] OF [facility] TYPE AND SCREEN EXPIRATION 10/10/2021 23:59 Normal [facility] Comment on above: Order Comment: Speci men Type: BLOOD SPECIMENOrdering Facility: [facility] Address: [address] [place] [address] Performed By: #### T SCR ####[facility] BLOOD BANKCLIA [id number] [address] Urinalysis complete panel (U )on 10-07-2021 Bilirubin Ql (U) Negative Normal Negative [facility] Comment on above: Order Comment: Speci men Type: URINE SPECIMENOrdering Facility: [facility] Address: [address] [place] [address] Performed By: #### 2 4356-8 ####[facility] LABORATORYCLIA [id number] [address] [place] Clarity (Unsp spec) Clear Normal Clear [facility] Comment on above: Order Comment: Speci men Type: URINE SPECIMENOrdering Facility: [facility] Address: [address] [place] [address] Performed By: #### 2 4356-8 ####[facility] LABORATORYCLIA [id number] [address] STATES OF [facility] Color (U) Light Yellow Normal yellow [facility] Comment on above: Order Comment: Speci men Type: URINE SPECIMENOrdering Facility: [facility] Address: [address] [place] [address] Performed By: #### 2 4356-8 ####[facility] LABORATORYCLIA [id number] [address] Glucose Test strip (U) [Mass/Vol] Negative Normal Negative [facility] Comment on above: Order Comment: Speci men Type: URINE SPECIMENOrdering Facility: [facility] Address: [address] [place] [address] Performed By: #### 2 4356-8 ####[facility] LABORATORYCLIA [id number] [address] [place] Hemoglobin Ql (U) Negative Normal Negative [facility] Comment on above: Order Comment: Speci men Type: URINE SPECIMENOrdering Facility: [facility] Address: [address] [place] [address] Performed By: #### 2 4356-8 ####[facility] LABORATORYCLIA [id number] [address] Ketones Ql (U) Negative Normal Negative [facility] Comment on above: Order Comment: Speci men Type: URINE SPECIMENOrdering Facility: [facility] Address: [address] [place] [address] Performed By: #### 2 4356-8 ####[facility] LABORATORYCLIA [id number] [address] Leukocyte esterase Test strip Ql (U) 500 Karson/mL Abnormal Negative [facility] Comment on above: Order Comment: Speci men Type: URINE SPECIMENOrdering Facility: [facility] Address: [address] [place] [address] Performed By: #### 2 4356-8 ####[facility] LABORATORYCLIA [id number] [address] [place] Nitrite Ql (U) Negative Normal Negative [facility] Comment on above: Order Comment: Speci men Type: URINE SPECIMENOrdering Facility: [facility] Address: [address] [place] [address] Performed By: #### 2 4356-8 ####[facility] LABORATORYCLIA [id number] [address] [place] pH (U) 6.5 [pH] Normal 5.0-8.0 [facility] Comment on above: Order Comment: Speci men Type: URINE SPECIMENOrdering Facility: [facility] Address: [address] [place] [address] Performed By: #### 2 4356-8 ####[facility] LABORATORYCLIA [id number] [address] [place] Protein (U) [Mass/Vol] Negative Normal Negative [facility] Comment on above: Order Comment: Speci men Type: URINE SPECIMENOrdering Facility: [facility] Address: [address] [place] [address] Performed By: #### 2 4356-8 ####[facility] LABORATORYCLIA [id number] [address] RBC LM.HPF (Urine sed) [#/Area] 0-3 /HPF Normal 0-3 /HPF [facility] Comment on above: Order Comment: Speci men Type: URINE SPECIMENOrdering Facility: [facility] Address: [address] [place] [address] Performed By: #### 2 4356-8 ####[facility] LABORATORYCLIA [id number] [address] Specific gravity (U) [Rel density] >1.040 High 1.005-1.030 [facility] Comment on above: Order Comment: Speci men Type: URINE SPECIMENOrdering Facility: [facility] Address: [address] [place] [address] Performed By: #### 2 4356-8 ####[facility] LABORATORYCLIA [id number] [address] Urobilinogen Ql (U) Normal Normal Negative [facility] Comment on above: Order Comment: Speci men Type: URINE SPECIMENOrdering Facility: [facility] Address: [address] [place] [address] Performed By: #### 2 4356-8 ####[facility] LABORATORYCLIA [id number] [address] WBC LM.HPF (Urine sed) [#/Area] /[HPF] Abnormal 0-5 /HPF [facility] Comment on above: Order Comment: Speci men Type: URINE SPECIMENOrdering Facility: [facility] Address: [address] [place] [address] Performed By: #### 2 4356-8 ####[facility] LABORATORYCLIA [id number] [address] Urine blood detectionon 09-20 RBC Ql (U) Negative Negative [facility] Work Phone: RBC Ql (U) 0-5 SEEN /hpf 0-5 [facility] Work Phone: Urine clarityon 10-07-2021 Clarity (U) Clear Clear [facility] Work Phone: Urine color determinationon 10-07-2021 Color (U) Yellow Yellow [facility] Work Phone: Urine glucose detectionon Glucose Ql (U) Normal mg/dl Normal [facility] Work Phone: Urine leukocyte esterase det ection by dipstickon 10-07-2021 Leukocyte esterase Test strip Ql (U) 100 /ul Negative [facility] Work Phone: Urine pHon 10-07-2021 pH (U) 7.0 [pH] 5.0 - 8.0 [facility] Work Phone: Urine sediment bacteria coun t by microscopy (number/high power field)on 10-07-2021 Bacteria LM.HPF (Urine sed) [#/Area] 3 /[HPF] None Seen [facility] Work Phone: Urine specific gravity measu rementon 10-07-2021 Specific gravity (U) [Rel density] 1.010 1.002-1.030 [facility] Work Phone: Urobilinogen Auto test strip Ql (U)on 10-07-2021 Urobilinogen Ql (U) Normal mg/dl Normal [facility] Work Phone: XR CHEST 1V FRONTALon 2021 XR CHEST 1V FRONTAL Normal [facility] XR KNEE 2V AP/LAT RTon 10-07 XR KNEE 2V AP/LAT RT Normal [facility] aPTT PPPon 10-07-2021 aPTT Coag (PPP) [Time] 26.3 s Normal 23.0-32.4 [facility] Comment on above: Order Comment: Speci men Type: BLOOD SPECIMENOrdering Facility: [facility] Address: [address] [place] [address] Performed By: #### 1 4979-9, 19900-9 ####[facility] LABORATORYCLIA [id number] [place] [address] [place] Absolute lymphocyte counton 10-06-2021 Lymphocytes Auto (Unsp spec) [#/Vol] 0.86 10*3/uL 0.83-4.51 [facility] Work Phone: Basophil percentageon 2021 Basophils/100 WBC (Bld) 0.3 % 0-1 [facility] Work Phone: Bilirubin [Mass/Vol] 0.50 mg/dL 0.20-1.00 [facility] Work Phone: Comment on above: For patients on eltr ombopag therapy, use of Dimension [place] TBIL is not recommended. Chloride [Moles/Vol] 96 mmol/L 98-107 [facility] Work Phone: Eosinophils/100 WBC (Bld) 0.3 % 0-5 [facility] Work Phone: Glucose [Mass/Vol] 169 mg/dL 74-106 [facility] Work Phone: Comment on above: Fasting Glucose resu lt greater than or equal to 126 mg/dL suggests DIABETES MELLITUS per A.D.A. criteria. Neutrophils (Bld) [#/Vol] 28.5 10*3/uL 2.0-7.7 [facility] Work Phone: Neutrophils/100 WBC (Bld) 90.5 % 47-70 [facility] Work Phone: Potassium [Moles/Vol] 3.1 mmol/L 3.5-5.1 [facility] Work Phone: Protein [Mass/Vol] 6.5 g/dL 6.4-8.2 [facility] Work Phone: Sodium [Moles/Vol] 130 mmol/L 136-145 [facility] Work Phone: WBC (Bld) [#/Vol] 31.5 10*3/uL 4.4-11.0 [facility] Work Phone: Comment on above: CRITICAL VALUE VERIF IED. CALLED TO GIANNA CHAIREZ10/06/21 Ronen Bolton.RESULTS READ BACK BY SAME . Blood erythrocytes count (nu mber/volume)on 10-06-2021 RBC (Bld) [#/Vol] 3.16 10*6/uL 4.2-5.4 [facility] Work Phone: Blood hemoglobin measurement (mass/volume)on 10-06-2021 Hemoglobin (Bld) [Mass/Vol] 10.3 g/dL 12.0-15.0 [facility] Work Phone: Blood lymphocytes/100 leukoc yteson 10-06-2021 Lymphocytes/100 WBC (Bld) 2.7 % 19-41 [facility] Work Phone: Blood manual differential co mment interpretation (narrative result)on 10-06-2021 Manual differential comment Donnie (Bld) [Interp] SCANNED [facility] Work Phone: Blood monocytes/100 leukocyt eson 10-06-2021 Monocytes/100 WBC (Bld) 5.3 % 0-10 [facility] Work Phone: Blood platelet mean volumeon 10-06-2021 Platelet mean volume (Bld) [Entitic vol] 9.9 fL 6.2-12.0 [facility] Work Phone: [phone] Determination of erythrocyte mean corpuscular volume (MCV)on 10-06-2021 MCV (RBC) [Entitic vol] 95.6 fL 81-99 [facility] Work Phone: [phone] Hematocrit Auto (Bld) [Volum e fraction]on 10-06-2021 Hematocrit (Bld) [Volume fraction] 30.2 % 37-47 [facility] Work Phone: Laboratory - Chemistry and C hemistry - challengeon 10-06-2021 ALP [Catalytic activity/Vol] 62 U/L 45-117 [facility] Work Phone: [phone] ALT [Catalytic activity/Vol] 26 U/L 13-56 [facility] Work Phone: [phone] CO2 [Moles/Vol] 27.0 mmol/L 21.0-32.0 [facility] Work Phone: [phone] Globulin (S) [Mass/Vol] 2.9 g/dL 2.2-4.2 [facility] Work Phone: [phone] Urea nitrogen/Creatinine [Mass ratio] 23.8 mg/mg 10-20 [facility] Work Phone: [phone] Laboratory - Hematology and Cell countson 10-06-2021 Erythrocyte distribution width (RBC) [Entitic vol] 45.3 fL 35.1-43.9 [facility] Work Phone: [phone] Erythrocyte distribution width (RBC) [Ratio] 12.8 % 11.6-14.6 [facility] Work Phone: [phone] Immature granulocytes/100 WBC (Bld) 0.900 % 0.0-0.9 [facility] Work Phone: [phone] Comment on above: IG% - Immature Granu locytes (promyelocytes, myelocytes and metamyelocytes) > 1% indicates that a LEFT SHIFT is Present. MCH (RBC) [Entitic mass] 32.6 pg 27.0-32.0 [facility] Work Phone: [phone] Nucleated RBC/100 WBC (Bld) [Ratio] 0 % 0-5 [facility] Work Phone: [phone] MCHC Auto (RBC) [Mass/Vol]on 10-06-2021 MCHC (RBC) [Mass/Vol] 34.1 g/dL 32-36 [facility] Work Phone: [phone] Panel Informationon 10-06 Estimated Creatinine Clearance Calc 54.70 ml/min [facility] Work Phone: [phone] Estimated GFR (MDRD) Amer 85 mL/min >60 [facility] Work Phone: Comment on above: GFR Calc Estimated GFR (MDRD) Non-Af Amer 70 mL/min >60 [facility] Work Phone: Comment on above: Non- GFR Calc Ethyl Alcohol Level < 3.0 mg/dL [facility] Work Phone: Comment on above: The serum:whole bloo d ethanol ratio is approximately 1.14and varies slightly with hematocrit. Medical Alcohol reference interval and critical value innon-tolerant individuals; 50 - 100 Impairment 100 Intoxication 100 - 250 Severe Poisoning 250 - 400 Deep/possible fatal coma Platelets bldon 10-06-2021 Platelets (Bld) [#/Vol] 317 10*3/uL 150-450 [facility] Work Phone: Review by pathologiston 09-20 Pathologist review Donnie (Unsp spec) [Interp] Nohelia july [facility] Work Phone: Pathologist review Donnie (Unsp spec) [Interp] Reviewed [facility] Work Phone: [phone] Comment on above: Previous reported re sult: Nohelia july Edited by: RGOOD on 10/09/21:1330Neutrophilic leukocytosis.Normocytic anemia.Clinical correlation necessary.Greg Guerin M.D. 10/09/21 AMENDED REPORT 10/09/21 1330 PATH REV previously reported as: August july Serum or plasma albumin rajni urement (mass/volume)on 10-06-2021 Albumin [Mass/Vol] 3.6 g/dL 3.2-5.0 [facility] Work Phone: [phone] Serum or plasma albumin/glob ulin mass ratioon 10-06-2021 Albumin/Globulin [Mass ratio] 1.2 {ratio} 0.9-2.4 [facility] Work Phone: [phone] Serum or plasma calcium rajni urement (mass/volume)on 10-06-2021 Calcium [Mass/Vol] 8.2 mg/dL 8.5-10.1 [facility] Work Phone: [phone] Serum or plasma creatinine m easurement (mass/volume)on 10-06-2021 Creatinine [Mass/Vol] 0.84 mg/dL 0.55-1.02 [facility] Work Phone: Comment on above: The validity of the calculated GFR & GFRAA in patients over 70 years has not been determined. Clinical correlation is essential. Serum or plasma urea nitroge n measurement (mass/volume)on 10-06-2021 Urea nitrogen [Mass/Vol] 20 mg/dL 7-18 [facility] Work Phone: Thin prep Papanicolaou smear with manual screeningon 10-06-2021 Thin prep Papanicolaou smear with manual screening 31 U/L 15-37 [facility] Work Phone: Thin prep Papanicolaou smear with manual screening 7 5-15 [facility] Work Phone: Laboratory - Chemistry and C hemistry - challengeon 07-28-2021 Free T4 [Mass/Vol] 1.04 ng/dL 0.76-1.46 [facility] Work Phone: No Panel Informationon 07-28 Thyroid Stimulating Hormone (TSH) 2.21 uIU/mL 0.358-3.74 [facility] Work Phone: Influenza virus A and B RNA and SARS-CoV-2 (COVID-19) N gene panel LEONA+probe (Resp)on 07-13-2021 FLUAV RNA LEONA+probe Ql (Unsp spec) Negative Negative for Influenza A by RT-PCR [facility] FLUBV RNA LEONA+probe Ql (Unsp spec) Negative Negative for Influenza B by RT-PCR [facility] SARS-CoV-2 (COVID-19) RNA LEONA+probe Ql (Resp) SARS-CoV-2 (Agent of COVID-19) Not Detected by RT-PCR or equivalent method. Not Detected [facility] Absolute lymphocyte counton 06-11-2021 Lymphocytes Auto (Unsp spec) [#/Vol] 1.63 10*3/uL 0.83-4.51 [facility] Work Phone: Basophil percentageon 2021 Basophil percentage 0 SEEN /hpf 0-5 [facility] Work Phone: Basophils/100 WBC (Bld) 0.5 % 0-1 [facility] Work Phone: Chloride [Moles/Vol] 99 mmol/L 98-107 [facility] Work Phone: Eosinophils/100 WBC (Bld) 1.4 % 0-5 [facility] Work Phone: Glucose [Mass/Vol] 110 mg/dL 74-106 [facility] Work Phone: Comment on above: Fasting Glucose resu lt from 100 to 125 mg/dL suggests IMPAIRED HOMEOSTASIS per A.D.A. criteria. Neutrophils (Bld) [#/Vol] 9.6 10*3/uL 2.0-7.7 [facility] Work Phone: Neutrophils/100 WBC (Bld) 78.8 % 47-70 [facility] Work Phone: Potassium [Moles/Vol] 3.8 mmol/L 3.5-5.1 [facility] Work Phone: Sodium [Moles/Vol] 135 mmol/L 136-145 [facility] Work Phone: WBC (Bld) [#/Vol] 12.1 10*3/uL 4.4-11.0 [facility] Work Phone: Bilirubin Test strip Ql (U)o n 06-11-2021 Bilirubin Ql (U) Negative Negative [facility] Work Phone: Blood erythrocytes count (nu mber/volume)on 06-11-2021 RBC (Bld) [#/Vol] 3.84 10*6/uL 4.2-5.4 [facility] Work Phone: Blood hemoglobin measurement (mass/volume)on 06-11-2021 Hemoglobin (Bld) [Mass/Vol] 12.6 g/dL 12.0-15.0 [facility] Work Phone: Blood lymphocytes/100 leukoc yteson 06-11-2021 Lymphocytes/100 WBC (Bld) 13.4 % 19-41 [facility] Work Phone: [phone] Blood monocytes/100 leukocyt eson 06-11-2021 Monocytes/100 WBC (Bld) 5.6 % 0-10 [facility] Work Phone: [phone] Blood platelet mean volumeon 06-11-2021 Platelet mean volume (Bld) [Entitic vol] 10.4 fL 6.2-12.0 [facility] Work Phone: [phone] Determination of erythrocyte mean corpuscular volume (MCV)on 06-11-2021 MCV (RBC) [Entitic vol] 94.5 fL 81-99 [facility] Work Phone: [phone] Hematocrit Auto (Bld) [Volum e fraction]on 06-11-2021 Hematocrit (Bld) [Volume fraction] 36.3 % 37-47 [facility] Work Phone: [phone] Ketones Test strip Ql (U)on 06-11-2021 Ketones Ql (U) Negative Negative [facility] Work Phone: [phone] Laboratory - Chemistry and C hemistry - challengeon 06-11-2021 CO2 [Moles/Vol] 28.0 mmol/L 21.0-32.0 [facility] Work Phone: Urea nitrogen/Creatinine [Mass ratio] 27.0 mg/mg - [facility] Work Phone: [phone] Laboratory - Hematology and Cell countson 06-11-2021 Erythrocyte distribution width (RBC) [Entitic vol] 45.8 fL 35.1-43.9 [facility] Work Phone: [phone] Erythrocyte distribution width (RBC) [Ratio] 13.2 % 11.6-14.6 [facility] Work Phone: [phone] Immature granulocytes/100 WBC (Bld) 0.300 % 0.0-0.9 [facility] Work Phone: [phone] Comment on above: IG% - Immature Granu locytes (promyelocytes, myelocytes and metamyelocytes) > 1% indicates that a LEFT SHIFT is Present. MCH (RBC) [Entitic mass] 32.8 pg 27.0-32.0 [facility] Work Phone: Nucleated RBC/100 WBC (Bld) [Ratio] 0 % 0-5 [facility] Work Phone: [phone] MCHC Auto (RBC) [Mass/Vol]on 06-11-2021 MCHC (RBC) [Mass/Vol] 34.7 g/dL 32-36 [facility] Work Phone: Mucus LM Ql (Urine sed)on Mucus Ql (Urine sed) 0 SEEN /hpf [facility] Work Phone: [phone] Nitrite Test strip Ql (U)on 06-11-2021 Nitrite Ql (U) Negative Negative [facility] Work Phone: No Panel Informationon 06-11 Estimated Creatinine Clearance Calc 42.62 ml/min [facility] Work Phone: [phone] Estimated GFR (MDRD) Amer 149 mL/min >60 [facility] Work Phone: Comment on above: GFR Calc Estimated GFR (MDRD) Non-Af Amer 123 mL/min >60 [facility] Work Phone: Comment on above: Non- GFR Calc Platelets bldon 06-11-2021 Platelets (Bld) [#/Vol] 301 10*3/uL 150-450 [facility] Work Phone: [phone] Protein Test strip Ql (U)on 06-11-2021 Protein Ql (U) Negative Negative [facility] Work Phone: [phone] Serum or plasma calcium rajni urement (mass/volume)on 06-11-2021 Calcium [Mass/Vol] 9.4 mg/dL 8.5-10.1 [facility] Work Phone: [phone] Serum or plasma creatinine m easurement (mass/volume)on 06-11-2021 Creatinine [Mass/Vol] 0.52 mg/dL 0.55-1.02 [facility] Work Phone: [phone] Comment on above: The validity of the calculated GFR & GFRAA in patients over 70 years has not been determined. Clinical correlation is essential. Serum or plasma urea nitroge n measurement (mass/volume)on 06-11-2021 Urea nitrogen [Mass/Vol] 14 mg/dL 7-18 [facility] Work Phone: Squamous epithelial cells de tection in urine sediment by light microscopyon 06-11-2021 Epithelial cells.squamous LM Ql (Urine sed) 0 SEEN /hpf 5-10 [facility] Work Phone: Thin prep Papanicolaou smear with manual screeningon 06-11-2021 Thin prep Papanicolaou smear with manual screening 8 5-15 [facility] Work Phone: Urine blood detectionon 05-24 RBC Ql (U) Negative Negative [facility] Work Phone: [phone] RBC Ql (U) 0 SEEN /hpf 0-5 [facility] Work Phone: Urine clarityon 06-11-2021 Clarity (U) Clear Clear [facility] Work Phone: Urine color determinationon 06-11-2021 Color (U) Yellow Yellow [facility] Work Phone: Urine glucose detectionon Glucose Ql (U) Normal mg/dl Normal [facility] Work Phone: [phone] Urine leukocyte esterase det ection by dipstickon 06-11-2021 Leukocyte esterase Test strip Ql (U) Negative Negative [facility] Work Phone: [phone] Urine pHon 06-11-2021 pH (U) 7.0 [pH] 5.0 - 8.0 [facility] Work Phone: [phone] Urine sediment bacteria coun t by microscopy (number/high power field)on 06-11-2021 Bacteria LM.HPF (Urine sed) [#/Area] 0 /[HPF] None Seen [facility] Work Phone: Urine specific gravity measu rementon 06-11-2021 Specific gravity (U) [Rel density] 1.010 1.002-1.030 [facility] Work Phone: Urobilinogen Auto test strip Ql (U)on 06-11-2021 Urobilinogen Ql (U) Normal mg/dl Normal [facility] Work Phone: Absolute lymphocyte counton 05-21-2021 Lymphocytes Auto (Unsp spec) [#/Vol] 1.29 10*3/uL 0.83-4.51 [facility] Work Phone: Basophil percentageon 2021 Basophils/100 WBC (Bld) 0.7 % 0-1 [facility] Work Phone: Chloride [Moles/Vol] 98 mmol/L 98-107 [facility] Work Phone: Eosinophils/100 WBC (Bld) 2.5 % 0-5 [facility] Work Phone: Glucose [Mass/Vol] 119 mg/dL 74-106 [facility] Work Phone: Comment on above: Fasting Glucose resu lt from 100 to 125 mg/dL suggests IMPAIRED HOMEOSTASIS per A.D.A. criteria. Neutrophils (Bld) [#/Vol] 6.4 10*3/uL 2.0-7.7 [facility] Work Phone: Neutrophils/100 WBC (Bld) 73.4 % 47-70 [facility] Work Phone: Potassium [Moles/Vol] 3.5 mmol/L 3.5-5.1 [facility] Work Phone: Sodium [Moles/Vol] 132 mmol/L 136-145 [facility] Work Phone: WBC (Bld) [#/Vol] 8.8 10*3/uL 4.4-11.0 [facility] Work Phone: Blood erythrocytes count (nu mber/volume)on 05-21-2021 RBC (Bld) [#/Vol] 3.66 10*6/uL 4.2-5.4 [facility] Work Phone: Blood hemoglobin measurement (mass/volume)on 05-21-2021 Hemoglobin (Bld) [Mass/Vol] 11.5 g/dL 12.0-15.0 [facility] Work Phone: Blood lymphocytes/100 leukoc yteson 05-21-2021 Lymphocytes/100 WBC (Bld) 14.7 % 19-41 [facility] Work Phone: [phone] Blood monocytes/100 leukocyt eson 05-21-2021 Monocytes/100 WBC (Bld) 8.5 % 0-10 [facility] Work Phone: [phone] Blood platelet mean volumeon 05-21-2021 Platelet mean volume (Bld) [Entitic vol] 10.7 fL 6.2-12.0 [facility] Work Phone: [phone] Determination of erythrocyte mean corpuscular volume (MCV)on 05-21-2021 MCV (RBC) [Entitic vol] 94.0 fL 81-99 [facility] Work Phone: [phone] Hematocrit Auto (Bld) [Volum e fraction]on 05-21-2021 Hematocrit (Bld) [Volume fraction] 34.4 % 37-47 [facility] Work Phone: [phone] Laboratory - Chemistry and C hemistry - challengeon 05-21-2021 CO2 [Moles/Vol] 27.0 mmol/L 21.0-32.0 [facility] Work Phone: [phone] Urea nitrogen/Creatinine [Mass ratio] 31.0 mg/mg 10-20 [facility] Work Phone: [phone] Laboratory - Hematology and Cell countson 05-21-2021 Erythrocyte distribution width (RBC) [Entitic vol] 44.3 fL 35.1-43.9 [facility] Work Phone: [phone] Erythrocyte distribution width (RBC) [Ratio] 12.7 % 11.6-14.6 [facility] Work Phone: [phone] Immature granulocytes/100 WBC (Bld) 0.200 % 0.0-0.9 [facility] Work Phone: [phone] Comment on above: IG% - Immature Granu locytes (promyelocytes, myelocytes and metamyelocytes) > 1% indicates that a LEFT SHIFT is Present. MCH (RBC) [Entitic mass] 31.4 pg 27.0-32.0 [facility] Work Phone: [phone] Nucleated RBC/100 WBC (Bld) [Ratio] 0 % 0-5 [facility] Work Phone: [phone] MCHC Auto (RBC) [Mass/Vol]on 05-21-2021 MCHC (RBC) [Mass/Vol] 33.4 g/dL 32-36 [facility] Work Phone: [phone] No Panel Informationon 05-21 Estimated Creatinine Clearance Calc 46.20 ml/min [facility] Work Phone: [phone] Estimated GFR (MDRD) Amer 174 mL/min >60 [facility] Work Phone: [phone] Comment on above: GFR Calc Estimated GFR (MDRD) Non-Af Amer 144 mL/min >60 [facility] Work Phone: [phone] Comment on above: Non- GFR Calc Ethyl Alcohol Level < 3.0 mg/dL [facility] Work Phone: [phone] Comment on above: The serum:whole bloo d ethanol ratio is approximately 1.14and varies slightly with hematocrit. Medical Alcohol reference interval and critical value innon-tolerant individuals; 50 - 100 Impairment 100 Intoxication 100 - 250 Severe Poisoning 250 - 400 Deep/possible fatal coma Platelets bldon 05-21-2021 Platelets (Bld) [#/Vol] 267 10*3/uL 150-450 [facility] Work Phone: [phone] Serum or plasma calcium rajni urement (mass/volume)on 05-21-2021 Calcium [Mass/Vol] 8.2 mg/dL 8.5-10.1 [facility] Work Phone: [phone] Serum or plasma creatinine m easurement (mass/volume)on 05-21-2021 Creatinine [Mass/Vol] 0.45 mg/dL 0.55-1.02 [facility] Work Phone: [phone] Comment on above: The validity of the calculated GFR & GFRAA in patients over 70 years has not been determined. Clinical correlation is essential. Serum or plasma urea nitroge n measurement (mass/volume)on 05-21-2021 Urea nitrogen [Mass/Vol] 14 mg/dL 7-18 [facility] Work Phone: Thin prep Papanicolaou smear with manual screeningon 05-21-2021 Thin prep Papanicolaou smear with manual screening 7 5-15 [facility] Work Phone: XR Humerus - left AP and Lat eralon 03-17-2021 IMPRESSION: Mildly comminuted fracture of the left humeral diaphysis. Overlying soft tissue swelling. 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 Overlying soft tissue swelling. 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 XR Humerus - left AP and Lat eralOrdered By: [facility] Provider on 03-17-2021 [facility] [facility] On Lab Teston 04-17-2020 Sodium [Moles/Vol] Accepted [place], [place] Comment on above: Specimen available & acceptable for analysis. Test Performed by [facility], [address] [place] [address] Sodium [Moles/Vol] Accepted [place], [place] Comment on above: Specimen available & acceptable for analysis. Test Performed by [id number] [place] [address] Add on test from HISon 04-17 Add on test from HIS Accepted Normal [facility] Comment on above: Result Comment: Spec imen available & acceptable for analysis. Performed By: #### A DDON ####[id number] [place], [place] Add on test from HIS Accepted Normal [facility] Comment on above: Result Comment: Spec imen available & acceptable for analysis. Performed By: #### A DDON #### [address] Albuminon 04-17-2020 Albumin [Mass/Vol] 3.2 g/dL Low 3.5 - 5 g/dL [place], [place] Interpretation and review of laboratory results Abnormal [place] Test Performed by [place] [address] [address] [facility] [address] [facility] [place], [place] Albumin, Serumon 04-17-2020 Albumin [Mass/Vol] 3.2 g/dL Low 3.5-5.0 [facility] Comment on above: Performed By: #### B MP3M, TSH5, MG3, HEMDF, ALB3, B12, PHOS3 ####[facility], [place] Basic Metabolic Panelon 03-23 Anion gap [Moles/Vol] 6 Normal [facility] Comment on above: Performed By: #### B MP3M, TSH5, MG3, HEMDF, ALB3, B12, PHOS3 ####[id number] [place], [place] Calcium [Mass/Vol] 6.8 mg/dL Low 8.4-10.4 [facility] Comment on above: Performed By: #### B MP3M, TSH5, MG3, HEMDF, ALB3, B12, PHOS3 ####[id number] [place], [place] CO2 [Moles/Vol] 29 mmol/L Normal 22-30 [facility] Comment on above: Performed By: #### B MP3M, TSH5, MG3, HEMDF, ALB3, B12, PHOS3 ####[id number] [place], [place] Glucose [Mass/Vol] 103 mg/dL High 70-100 [facility] Comment on above: Performed By: #### B MP3M, TSH5, MG3, HEMDF, ALB3, B12, PHOS3 ####[facility] [place], [place] Urea nitrogen [Mass/Vol] 13 mg/dL Normal 7-20 [facility] Comment on above: Performed By: #### B MP3M, TSH5, MG3, HEMDF, ALB3, B12, PHOS3 ####[facility] [place], [place] Creatinine [Mass/Vol] 0.56 mg/dL Normal 0.52-1.25 [facility] Comment on above: Performed By: #### B MP3M, TSH5, MG3, HEMDF, ALB3, B12, PHOS3 ####[facility] [id number] [place] [address] GFR/1.73 sq M predicted among blacks MDRD (S/P/Bld) [Vol rate/Area] mL/min/{1.73_m2} Normal >60 [facility] Comment on above: Performed By: #### B MP3M, TSH5, MG3, HEMDF, ALB3, B12, PHOS3 ####[facility] [id number] [place] [address] GFR/1.73 sq M predicted among non-blacks MDRD (S/P/Bld) [Vol rate/Area] mL/min/{1.73_m2} Normal >60 [facility] Comment on above: Result Comment: KDIG [...] TSH5, MG3, HEMDF, ALB3, B12, PHOS3 ####[facility] [id number] [place] [address] Chloride [Moles/Vol] 100 mmol/L Normal 98-107 [facility] Comment on above: Performed By: #### B MP3M, TSH5, MG3, HEMDF, ALB3, B12, PHOS3 ####[facility] [place], [place] Potassium [Moles/Vol] 3.3 mmol/L Low 3.5-5.1 [facility] Comment on above: Performed By: #### B MP3M, TSH5, MG3, HEMDF, ALB3, B12, PHOS3 ####[facility] [place], [place] Sodium [Moles/Vol] 135 mmol/L Normal 135-145 [facility] Comment on above: Performed By: #### B MP3M, TSH5, MG3, HEMDF, ALB3, B12, PHOS3 ####[facility] [place], [place] Basic Metabolic Panel w/ Ref jason to [facility] 04-17-2020 Anion gap [Moles/Vol] 6 mmol/L [place], [place] Calcium [Mass/Vol] 6.8 mg/dL Low 8.4 - 10. 4 mg/dL [place], [place] Chloride [Moles/Vol] 100 mmol/L 98 - 10 7 mmol/L [place] CO2 [Moles/Vol] 29 mmol/L 22 - 30 mmol/L [place] Creatinine [Mass/Vol] 0.56 mg/dL 0.52 - 1.25 mg/dL [place] EGFR IF NonAfrican Wallisian >90.0 >60 mL/min [place] Comment on above: KDIGO guidelines pro [...] MDRD (S/P/Bld) [Vol rate/Area] mL/min/{1.73_m2} >60 mL/min [place] Glucose [Mass/Vol] 103 mg/dL High 70 - 100 mg/dL [place] Interpretation and review of laboratory results Abnormal [place] Potassium [Moles/Vol] 3.3 mmol/L Low 3.5 - 5.1 mmol/L [place] Sodium [Moles/Vol] 135 mmol/L 135 - 145 mmol/L [place] Urea nitrogen [Mass/Vol] 13 mg/dL 7 - 20 mg/dL [place] CBC auto differentialon - Absolute Baso # 0.1 10*3/uL 0 - 0.2 10*3/uL [place] Absolute Neut # 8.1 10*3/uL High 1.8 - 7 10*3/uL [place] Basophils/100 WBC (Bld) 0.6 % 0 - 2 % [place] Eosinophils (Bld) [#/Vol] 0.1 10*3/uL 0 - 0.5 10*3/uL [place] Eosinophils/100 WBC (Bld) 1.1 % 1 - 6 % [place] Erythrocyte distribution width (RBC) [Ratio] 14.9 % High 11.5 - 14.5 % [place] Granulocytes/100 WBC (Bld) 71.9 % 40 - 80 % [place] Hematocrit (Bld) [Volume fraction] 31.7 % Low 35 - 47 % [place] Hemoglobin (Bld) [Mass/Vol] 10.6 g/dL Low 11.7 - 16 g/dL [place] Interpretation and review of laboratory results Abnormal [place] Lymphocytes (Bld) [#/Vol] 1.9 10*3/uL 1 - 4.3 10*3/uL [place] Lymphocytes/100 WBC (Bld) 16.9 % Low 20 - 40 % [place] MCH (RBC) [Entitic mass] 33.2 pg 26 - 34 pg [place] MCHC (RBC) [Mass/Vol] 33.3 % 32 - 36 % [place] MCV (RBC) [Entitic vol] 99.7 fL High 79 - 98 fL [place], [place] Monocytes (Bld) [#/Vol] 1.1 10*3/uL High 0 - 0.8 10*3/uL [place] Monocytes/100 WBC (Bld) 9.5 % 2 - 10 % [place] Platelet mean volume (Bld) [Entitic vol] 8.7 fL 7.4 - 10.4 fL [place] Platelets (Bld) [#/Vol] 232 10*3/uL 140 - 440 10*3/uL [place] RBC (Bld) [#/Vol] 3.18 10*6/uL Low 3.8 - 5.2 10*6/uL [place] WBC (Bld) [#/Vol] 11.2 10*3/uL High 3.6 - 10.7 10*3/uL [place] Test Performed by [id number] [place] [address] CT Head or Brain w/o Contras ton 04-17-2020 CT Head or Brain w/o Contrast Patient Name: AIDEN FIELDS Computed Tomography ACCESSION EXAM DATE/TIME PROCEDURE ORDERING PROVIDER [id number] 04/17/2020 06:[address] Head or Brain w/o MD [place], ANIBAL Contrast CPT code 91418 Reason For Exam (CT Head or Brain [...] Transcribed Date and Time: 04/17/2020 9:04 Normal [facility] CT head without contraston 1 06-18-2019 Greg, [facility] Incoming Radiology Results From [facility] - 04/17/2020 9:11 AM EST Patient Name: [id number] Computed Tomography ACCESSION EXAM DATE/TIME PROCEDURE ORDERING PROVIDER [id number] 04/17/2020 06:[address] Head or Brain w/o MD LEY ANDREW Contrast CPT code 69702 Reason For Exam (CT Head or Brain [...] JOHN Transcribed Date and Time: 04/17/2020 9:04 [place] Patient Name: AIDEN FIELDS Computed Tomography ACCESSION EXAM DATE/TIME PROCEDURE ORDERING PROVIDER [id number] 04/17/2020 06:[address] Head or Brain w/o MD LEY ANDREW Contrast CPT code 38645 Reason For Exam (CT Head or Brain [...] JOHN Transcribed Date and Time: 04/17/2020 9:04 [place] Hemogram w/ Autodiffon 04-17 Abs Baso Cnt 0.1 10*3/uL Normal 0.0-0.2 [facility] Comment on above: Performed By: #### B MP3M, TSH5, MG3, HEMDF, ALB3, B12, PHOS3 ####[id number] [place], [place] Abs Neutrophile Cnt 8.1 10*3/uL High 1.8-7.0 [facility] Comment on above: Performed By: #### B MP3M, TSH5, MG3, HEMDF, ALB3, B12, PHOS3 ####[id number] [place], [place] Basophils/100 WBC (Bld) 0.6 % Normal 0.0-2.0 [facility] Comment on above: Performed By: #### B MP3M, TSH5, MG3, HEMDF, ALB3, B12, PHOS3 ####[address] Eosinophils (Bld) [#/Vol] 0.1 10*3/uL Normal 0.0-0.5 [facility] Comment on above: Performed By: #### B MP3M, TSH5, MG3, HEMDF, ALB3, B12, PHOS3 ####[address] Eosinophils/100 WBC (Bld) 1.1 % Normal 1.0-6.0 [facility] Comment on above: Performed By: #### B MP3M, TSH5, MG3, HEMDF, ALB3, B12, PHOS3 ####[id number] [place], [place] Erythrocyte distribution width (RBC) [Ratio] 14.9 % High 11.5-14.5 [facility] Comment on above: Performed By: #### B MP3M, TSH5, MG3, HEMDF, ALB3, B12, PHOS3 ####[address] Granulocytes/100 WBC (Bld) 71.9 % Normal 40.0-80.0 [facility] Comment on above: Performed By: #### B MP3M, TSH5, MG3, HEMDF, ALB3, B12, PHOS3 ####[address] Hematocrit (Bld) [Volume fraction] 31.7 % Low 35.0-47.0 [facility] Comment on above: Performed By: #### B MP3M, TSH5, MG3, HEMDF, ALB3, B12, PHOS3 ####[id number] [place], [place] Hemoglobin (Bld) [Mass/Vol] 10.6 g/dL Low 11.7-16.0 [facility] Comment on above: Performed By: #### B MP3M, TSH5, MG3, HEMDF, ALB3, B12, PHOS3 ####[id number] [place], [place] Lymphocytes (Bld) [#/Vol] 1.9 10*3/uL Normal 1.0-4.3 [facility] Comment on above: Performed By: #### B MP3M, TSH5, MG3, HEMDF, ALB3, B12, PHOS3 ####[address] Lymphocytes/100 WBC (Bld) 16.9 % Low 20.0-40.0 [facility] Comment on above: Performed By: #### B MP3M, TSH5, MG3, HEMDF, ALB3, B12, PHOS3 ####[id number] [place], [place] MCH (RBC) [Entitic mass] 33.2 pg Normal 26.0-34.0 [facility] Comment on above: Performed By: #### B MP3M, TSH5, MG3, HEMDF, ALB3, B12, PHOS3 ####[id number] [place], [place] MCHC (RBC) [Mass/Vol] 33.3 % Normal 32.0-36.0 [facility] Comment on above: Performed By: #### B MP3M, TSH5, MG3, HEMDF, ALB3, B12, PHOS3 ####[address] MCV (RBC) [Entitic vol] 99.7 fL High 79.0-98.0 S [facility] Comment on above: Performed By: #### B MP3M, TSH5, MG3, HEMDF, ALB3, B12, PHOS3 ####[id number] [place], [place] Monocytes (Bld) [#/Vol] 1.1 10*3/uL High 0.0-0.8 [facility] Comment on above: Performed By: #### B MP3M, TSH5, MG3, HEMDF, ALB3, B12, PHOS3 ####[id number] [place], [place] Monocytes/100 WBC (Bld) 9.5 % Normal 2.0-10.0 S [facility] Comment on above: Performed By: #### B MP3M, TSH5, MG3, HEMDF, ALB3, B12, PHOS3 ####[id number] [place], [place] Platelet mean volume (Bld) [Entitic vol] 8.7 fL Normal 7.4-10.4 [facility] Comment on above: Performed By: #### B MP3M, TSH5, MG3, HEMDF, ALB3, B12, PHOS3 ####[id number] [place], [place] Platelets (Bld) [#/Vol] 232 10*3/uL Normal 140-440 [facility] Comment on above: Performed By: #### B MP3M, TSH5, MG3, HEMDF, ALB3, B12, PHOS3 ####[id number] [place], [place] RBC (Bld) [#/Vol] 3.18 10*6/uL Low 3.80-5.20 [facility] Comment on above: Performed By: #### B MP3M, TSH5, MG3, HEMDF, ALB3, B12, PHOS3 ####[id number] [place], [place] WBC (Bld) [#/Vol] 11.2 10*3/uL High 3.6-10.7 [facility] Comment on above: Performed By: #### B MP3M, TSH5, MG3, HEMDF, ALB3, B12, PHOS3 ####[facility] [id number] [place], [place] Lactic Acidon 04-17-2020 Lactate [Moles/Vol] 1.8 mmol/L Normal 0.7-2.0 [facility] Comment on above: Performed By: #### L ACT3 #### [facility] [address] [place], [place] Lactic Acid, Plasmaon 2019 Lactate [Moles/Vol] 1.8 mmol/L 0.7 - 2 mmol/L [place], [place] Test Performed by [facility], [address] [place] [address] [place], [place] Magnesiumon 04-17-2020 Magnesium [Mass/Vol] 1.4 mg/dL Low 1.6-2.3 [facility] Comment on above: Performed By: #### B MP3M, TSH5, MG3, HEMDF, ALB3, B12, PHOS3 ####[id number] [place], [place] Interpretation and review of laboratory results Abnormal [place], [place] Magnesium [Mass/Vol] 1.4 mg/dL Low 1.6 - 2 .3 mg/dL [place] Test Performed by [facility], [place] [address] [place], [place] Otheron 04-17-2020 Test Performed by [facility], [place] [address] [place], [place] Phosphoruson 04-17-2020 Phosphate [Mass/Vol] 3.4 mg/dL Normal 2.5-4.5 [facility] Comment on above: Performed By: #### B MP3M, TSH5, MG3, HEMDF, ALB3, B12, PHOS3 ####[facility] [place], [place] Phosphate [Mass/Vol] 3.4 mg/dL 2.5 - 4 .5 mg/dL [place] TSH without Reflexon 020 Interpretation and review of laboratory results Abnormal [place] TSH Qn 18.063 u[IU]/mL High 0.465 - 4.68 u[IU]/mL [place] Test Performed by [facility], [address] [place] [address] [place], [place] Thyroid Stim. Hormoneon 03-23 Thyroid Stim. Hormone 18.063 u[IU]/mL High 0.465-4.6 80 [facility] Comment on above: Performed By: #### B MP3M, TSH5, MG3, HEMDF, ALB3, B12, PHOS3 ####[facility] [id number] [place] [address] Vitamin B12on 04-17-2020 Cobalamin (Vitamin B12) [Mass/Vol] 345 pg/mL Normal 239-931 [facility] Comment on above: Performed By: #### B MP3M, TSH5, MG3, HEMDF, ALB3, B12, PHOS3 ####[address] [place] [place], [place] Cobalamin (Vitamin B12) [Mass/Vol] 345 pg/mL 239 - 931 pg/mL [place], [place] Test Performed by [facility], [address] [place] [address] [place], [place] Basic Metabolic Panelon 03-23 Calcium [Mass/Vol] 7.9 mg/dL Low 8.4-10.4 [facility] Comment on above: Performed By: #### E TOH4, BMP3M, LACT3, HEMDF #### [facility] [address] [place], [place] Glucose [Mass/Vol] 116 mg/dL High 70-100 [facility] Comment on above: Performed By: #### E TOH4, BMP3M, LACT3, HEMDF #### [facility] [address] [place], [place] Anion gap [Moles/Vol] 7 Normal [facility] Comment on above: Performed By: #### E TOH4, BMP3M, LACT3, HEMDF #### [address] CO2 [Moles/Vol] 29 mmol/L Normal 22-30 [facility] Comment on above: Performed By: #### E TOH4, BMP3M, LACT3, HEMDF #### [address] Creatinine [Mass/Vol] 0.48 mg/dL Low 0.52-1.25 [facility] Comment on above: Performed By: #### E TOH4, BMP3M, LACT3, HEMDF #### [address] GFR/1.73 sq M predicted among blacks MDRD (S/P/Bld) [Vol rate/Area] mL/min/{1.73_m2} Normal >60 [facility] Comment on above: Performed By: #### E TOH4, BMP3M, LACT3, HEMDF #### [address] GFR/1.73 sq M predicted among non-blacks MDRD (S/P/Bld) [Vol rate/Area] mL/min/{1.73_m2} Normal >60 [facility] Comment on above: Result Comment: KDIG [...] #### E TOH4, BMP3M, LACT3, HEMDF #### [address] [place], [place] Urea nitrogen [Mass/Vol] 13 mg/dL Normal 7-20 [facility] Comment on above: Performed By: #### E TOH4, BMP3M, LACT3, HEMDF #### [address] [place], [place] Chloride [Moles/Vol] 99 mmol/L Normal 98-107 [facility] Comment on above: Performed By: #### E TOH4, BMP3M, LACT3, HEMDF #### [address] [place], [place] Potassium [Moles/Vol] 3.6 mmol/L Normal 3.5-5.1 [facility] Comment on above: Performed By: #### E TOH4, BMP3M, LACT3, HEMDF #### [address] [place], [place] Sodium [Moles/Vol] 136 mmol/L Normal 135-145 [facility] Comment on above: Performed By: #### E TOH4, BMP3M, LACT3, HEMDF #### [address] [place], [place] Basic Metabolic Panel w/ Ref jason to MGon 04-16-2020 Anion gap [Moles/Vol] 7 mmol/L [place] Calcium [Mass/Vol] 7.9 mg/dL Low 8.4 - 10. 4 mg/dL [place] Chloride [Moles/Vol] 99 mmol/L 98 - 10 7 mmol/L [place] CO2 [Moles/Vol] 29 mmol/L 22 - 30 mmol/L [place] Creatinine [Mass/Vol] 0.48 mg/dL Low 0.52 - 1.25 mg/dL [place] EGFR IF NonAfrican [place] >90.0 >60 mL/min [place], [place] Comment on above: KDIGO guidelines pro [...] MDRD (S/P/Bld) [Vol rate/Area] mL/min/{1.73_m2} >60 mL/min [place], [place] Glucose [Mass/Vol] 116 mg/dL High 70 - 100 mg/dL [place] Interpretation and review of laboratory results Abnormal [place], [place] Potassium [Moles/Vol] 3.6 mmol/L 3.5 - 5.1 mmol/L [place] Sodium [Moles/Vol] 136 mmol/L 135 - 145 mmol/L [place], [place] Urea nitrogen [Mass/Vol] 13 mg/dL 7 - 20 mg/dL [place] CBC auto differentialon 12-2 Absolute Baso # 0.1 10*3/uL 0 - 0.2 10*3/uL [place], [place] Absolute Neut # 10.3 10*3/uL High 1.8 - 7 10*3/uL [place], [place] Basophils/100 WBC (Bld) 0.4 % 0 - 2 % [place] Eosinophils (Bld) [#/Vol] 0.0 10*3/uL 0 - 0.5 10*3/uL [place] Eosinophils/100 WBC (Bld) 0.4 % Low 1 - 6 % [place] Erythrocyte distribution width (RBC) [Ratio] 14.6 % High 11.5 - 14.5 % [place] Granulocytes/100 WBC (Bld) 82.2 % High 40 - 80 % [place] Hematocrit (Bld) [Volume fraction] 36.4 % 35 - 47 % [place] Hemoglobin (Bld) [Mass/Vol] 12.1 g/dL 11.7 - 16 g/dL [place], [place] Interpretation and review of laboratory results Abnormal [place] Lymphocytes (Bld) [#/Vol] 1.1 10*3/uL 1 - 4.3 10*3/uL [place] Lymphocytes/100 WBC (Bld) 9.1 % Low 20 - 40 % [place] MCH (RBC) [Entitic mass] 33.0 pg 26 - 34 pg [place] MCHC (RBC) [Mass/Vol] 33.2 % 32 - 36 % [place] MCV (RBC) [Entitic vol] 99.2 fL High 79 - 98 fL [place], [place] Monocytes (Bld) [#/Vol] 1.0 10*3/uL High 0 - 0.8 10*3/uL [place], [place] Monocytes/100 WBC (Bld) 7.9 % 2 - 10 % [place], [place] Platelet mean volume (Bld) [Entitic vol] 8.1 fL 7.4 - 10.4 fL [place] Platelets (Bld) [#/Vol] 283 10*3/uL 140 - 440 10*3/uL [place] RBC (Bld) [#/Vol] 3.67 10*6/uL Low 3.8 - 5.2 10*6/uL [place] WBC (Bld) [#/Vol] 12.5 10*3/uL High 3.6 - 10.7 10*3/uL [place] Test Performed by [facility], [address] [place] [address] [place] Drug screen multi urineon Amphetamines, urine Negative [place] Barbiturates, Ur Negative [place] Benzodiazepine Ur Qual Negative [place], [place] Cocaine Metabolites, Ur Negative M [facility], [place] Methadone, Urine Negative [facility], [place] Opiates, Urine Positive [facility], [place] Oxycodone Screen, Ur Negative [facility], [place] PCP, Urine Negative [facility], [place] Comment on above: The expected value f [...] confirmation under separate order. Test Performed by [address] Drugs of Abuseon 04-16-2020 Opiates, Ur Positive Normal [facility] Comment on above: Performed By: #### D RGA4 #### [address] [id number] Phencyclidine (PCP), Ur Negative Normal [facility] Comment on above: Result Comment: The expected [...] order. Performed By: #### D RGA4 #### [facility] [address] [place], [place] Methadone, Ur Negative Normal [facility] Comment on above: Performed By: #### D RGA4 #### [facility] [address] [place], [place] Benzodiazepines, Ur Negative Normal [facility] Comment on above: Performed By: #### D RGA4 #### [facility] [address] [place], [place] Cocaine, Ur Negative Normal [facility] Comment on above: Performed By: #### D RGA4 #### [facility] [address] [place], [place] Barbiturates, Ur Negative Normal [facility] Comment on above: Performed By: #### D RGA4 #### [facility] [address] [place], [place] Amphetamines, Ur Negative Normal [facility] Comment on above: Performed By: #### D RGA4 #### [facility] [address] [place], [place] Oxycodone/Oxymorphine,U r Negative Normal [facility] Comment on above: Performed By: #### D RGA4 #### [facility] [address] [place], [place] Ethanolon 04-16-2020 Ethanol Lvl <0.010 0 - 0.01 g/dL [place] Comment on above: NOTE: This result is for medical treatment only. Analysis performed using non-forensic procedures. Ethanol Serum/Plasmaon 04-16 Ethanol-Serum/Plasma < 0.010 Normal 0.000-0.010 [facility] Comment on above: Result Comment: NOTE : This result is for medical treatment only. Analysis performed using non-forensic procedures. Performed By: #### E TOH4, BMP3M, LACT3, HEMDF #### [facility] [address] [place], [place] Hemogram w/ Autodiffon 04-16 Abs Baso Cnt 0.1 10*3/uL Normal 0.0-0.2 [facility] Comment on above: Performed By: #### E TOH4, BMP3M, LACT3, HEMDF #### [address] [place], [place] Abs Neutrophile Cnt 10.3 10*3/uL High 1.8-7.0 [facility] Comment on above: Performed By: #### E TOH4, BMP3M, LACT3, HEMDF #### [address] [address] [place], [place] Basophils/100 WBC (Bld) 0.4 % Normal 0.0-2.0 S [facility] Comment on above: Performed By: #### E TOH4, BMP3M, LACT3, HEMDF #### [address] Eosinophils (Bld) [#/Vol] 0.0 10*3/uL Normal 0.0-0.5 [facility] Comment on above: Performed By: #### E TOH4, BMP3M, LACT3, HEMDF #### [address] Eosinophils/100 WBC (Bld) 0.4 % Low 1.0-6.0 [facility] Comment on above: Performed By: #### E TOH4, BMP3M, LACT3, HEMDF #### [address] Erythrocyte distribution width (RBC) [Ratio] 14.6 % High 11.5-14.5 [facility] Comment on above: Performed By: #### E TOH4, BMP3M, LACT3, HEMDF #### [address] Granulocytes/100 WBC (Bld) 82.2 % High 40.0-80.0 [facility] Comment on above: Performed By: #### E TOH4, BMP3M, LACT3, HEMDF #### [address] Hematocrit (Bld) [Volume fraction] 36.4 % Normal 35.0-47.0 [facility] Comment on above: Performed By: #### E TOH4, BMP3M, LACT3, HEMDF #### [address] [address] [place], [place] Hemoglobin (Bld) [Mass/Vol] 12.1 g/dL Normal 11.7-16.0 [facility] Comment on above: Performed By: #### E TOH4, BMP3M, LACT3, HEMDF #### [address] Lymphocytes (Bld) [#/Vol] 1.1 10*3/uL Normal 1.0-4.3 [facility] Comment on above: Performed By: #### E TOH4, BMP3M, LACT3, HEMDF #### [address] Lymphocytes/100 WBC (Bld) 9.1 % Low 20.0-40.0 [facility] Comment on above: Performed By: #### E TOH4, BMP3M, LACT3, HEMDF #### [address] MCH (RBC) [Entitic mass] 33.0 pg Normal 26.0-34.0 [facility] Comment on above: Performed By: #### E TOH4, BMP3M, LACT3, HEMDF #### [address] MCHC (RBC) [Mass/Vol] 33.2 % Normal 32.0-36.0 [facility] Comment on above: Performed By: #### E TOH4, BMP3M, LACT3, HEMDF #### [address] MCV (RBC) [Entitic vol] 99.2 fL High 79.0-98.0 [facility] Comment on above: Performed By: #### E TOH4, BMP3M, LACT3, HEMDF #### [address] Monocytes (Bld) [#/Vol] 1.0 10*3/uL High 0.0-0.8 [facility] Comment on above: Performed By: #### E TOH4, BMP3M, LACT3, HEMDF #### [address] [address] [address] [place], [place] Monocytes/100 WBC (Bld) 7.9 % Normal 2.0-10.0 [facility] Comment on above: Performed By: #### E TOH4, BMP3M, LACT3, HEMDF #### [address] [address] [address] [place], [place] Platelet mean volume (Bld) [Entitic vol] 8.1 fL Normal 7.4-10.4 [facility] Comment on above: Performed By: #### E TOH4, BMP3M, LACT3, HEMDF #### [address] [address] [address] [place], [place] Platelets (Bld) [#/Vol] 283 10*3/uL Normal 140-440 [facility] Comment on above: Performed By: #### E TOH4, BMP3M, LACT3, HEMDF #### [address] [address] [address] [place], [place] RBC (Bld) [#/Vol] 3.67 10*6/uL Low 3.80-5.20 [facility] Comment on above: Performed By: #### E TOH4, BMP3M, LACT3, HEMDF #### [address] [address] [address] [place], [place] WBC (Bld) [#/Vol] 12.5 10*3/uL High 3.6-10.7 [facility] Comment on above: Performed By: #### E TOH4, BMP3M, LACT3, HEMDF #### [address] [address] [address] [place], [place] Lactic Acidon 04-16-2020 Lactate [Moles/Vol] 2.7 mmol/L Critically high 0.7-2.0 [facility] Comment on above: Performed By: #### L ACT3 #### [place] [address] [address] [place], [place] Lactate [Moles/Vol] 3.0 mmol/L Critically high 0.7-2.0 [facility] Comment on above: Performed By: #### E TOH4, BMP3M, LACT3, HEMDF #### [address] [address] [place] [address] Lactic Acid, Plasmaon 2019 Interpretation and review of laboratory results Abnormal [place], [place] Lactate [Moles/Vol] 2.7 mmol/L Critically high 0.7 - 2 mmol/L [facility], [place] Test Performed by [facility], [place] [address] [facility], [place] Interpretation and review of laboratory results Abnormal [place], [place] Lactate [Moles/Vol] 3 mmol/L Critically high 0.7 - 2 mmol/L [place], [place] Test Performed by [facility], [place] [address] [facility], [place] Otheron 04-16-2020 Test Performed by [facility], [place] [address] [place], [place] .GFRon 09-01-2019 GFR Non- >60 Normal [facility] ([place] Comment on above: Result Comment: GFR Population [...] #### C BC, BMP, GFR, DIFF, MORPH ####[place] [address] GFR >60 Normal [facility] [place] Comment on above: Result Comment: GFR Population [...] #### C BC, BMP, GFR, DIFF, MORPH ####[address] [address] .Manual Diffon 09-01-2019 Bands 1.0 % Normal 0.0-5.0 [facility] ([place] Comment on above: Performed By: #### C BC, BMP, GFR, DIFF, MORPH ####[place] [address] Basophil %, Manual 1.0 % Normal 0.0-2.5 [facility] ([place] Comment on above: Performed By: #### C BC, BMP, GFR, DIFF, MORPH ####[place] [address] Basophil, Abs Manual 0.15 10 3/mcL Normal 0.00-0.27 [facility] ([place] Comment on above: Performed By: #### C BC, BMP, GFR, DIFF, MORPH ####[place] [address] Cells Counted 100 Normal [facility] ([place] Comment on above: Performed By: #### C BC, BMP, GFR, DIFF, MORPH ####[place] [address] Eosinophil %, Manual 2.0 % Normal 0.0-6.0 [facility] [place] Comment on above: Performed By: #### C BC, BMP, GFR, DIFF, MORPH ####[place] [id number] Eosinophil, Abs Manual 0.30 10 3/mcL Normal 0.00-0.65 [facility] ([place] Comment on above: Performed By: #### C BC, BMP, GFR, DIFF, MORPH ####[address] [address] Lymphocyte %, Manual 7.0 % Low 20.0-40.0 [facility] [place] Comment on above: Performed By: #### C BC, BMP, GFR, DIFF, MORPH ####[address] [address] Lymphocyte, Abs Manual 1.04 10 3/mcL Normal 0.90-4.32 [facility] ([place] Comment on above: Performed By: #### C BC, BMP, GFR, DIFF, MORPH ####[place] [address] Monocyte %, Manual 2.0 % Normal 2.0-13.0 [facility] [place] Comment on above: Performed By: #### C BC, BMP, GFR, DIFF, MORPH ####[place] [address] Monocyte, Abs Manual 0.30 10 3/mcL Normal 0.09-1.40 [facility] ([place] Comment on above: Performed By: #### C BC, BMP, GFR, DIFF, MORPH ####[place] [address] Neutrophil %, Manual 87.0 % High 50.0-75.0 [facility] [place] Comment on above: Performed By: #### C BC, BMP, GFR, DIFF, MORPH ####[address] [address] Neutrophil, Abs Manual 13.11 10 3/mcL High 2.25-8.10 [facility] ([place] Comment on above: Performed By: #### C BC, BMP, GFR, DIFF, MORPH ####[place] [address] .Morphon 09-01-2019 Platelets (Bld) [#/Vol] Slt Increased Normal [facility] ([place] Comment on above: Performed By: #### C BC, BMP, GFR, DIFF, MORPH ####[place] [address] RBC morphology finding Nom (Bld) Normal Normal [facility] ([place] Comment on above: Performed By: #### C BC, BMP, GFR, DIFF, MORPH ####[address] [address] BMPon 09-01-2019 Calcium [Mass/Vol] 8.6 mg/dL Normal 8.4-10.1 [facility] [place] Comment on above: Performed By: #### C BC, BMP, GFR, DIFF, MORPH ####[address] [address] CO2 [Moles/Vol] 24 mmol/L Normal 22-32 [facility] ([place] Comment on above: Performed By: #### C BC, BMP, GFR, DIFF, MORPH ####[address] [address] Creatinine [Mass/Vol] 0.46 mg/dL Low 0.50-1.20 [facility] ([place] Comment on above: Performed By: #### C BC, BMP, GFR, DIFF, MORPH ####[place] [address] Electrolyte Balance 10.0 mEq/L Normal 4.0-15.0 [facility] ([place] Comment on above: Performed By: #### C BC, BMP, GFR, DIFF, MORPH ####[address] [address] Glucose [Mass/Vol] 106 mg/dL Normal 82-115 [facility] [place] Comment on above: Performed By: #### C BC, BMP, GFR, DIFF, MORPH ####[address] [address] Potassium [Moles/Vol] 3.9 mmol/L Normal 3.5-5.0 [facility] ([place] Comment on above: Performed By: #### C BC, BMP, GFR, DIFF, MORPH ####[address] [address] Urea nitrogen [Mass/Vol] 9.0 mg/dL Normal 8.0-22.0 [facility] ([place] Comment on above: Performed By: #### C BC, BMP, GFR, DIFF, MORPH ####[place] [address] Urea nitrogen/Creatinine [Mass ratio] 19.6 ratio Normal 10.0-22.0 [facility] ([place] Comment on above: Performed By: #### C BC, BMP, GFR, DIFF, MORPH ####[place] [address] Chloride [Moles/Vol] 101 mmol/L Normal 98-110 [facility] [place] Comment on above: Performed By: #### C BC, BMP, GFR, DIFF, MORPH ####[place] [address] Sodium [Moles/Vol] 135 mmol/L Low 136-145 [facility] [place] Comment on above: Performed By: #### C BC, BMP, GFR, DIFF, MORPH ####[place] [address] CBCon 09-01-2019 Erythrocyte distribution width (RBC) [Ratio] 14.7 % Normal 11.5-15.5 [facility] ([place] Comment on above: Performed By: #### C BC, BMP, GFR, DIFF, MORPH ####[place] [address] Hematocrit (Bld) [Volume fraction] 29.6 % Low 34.0-46.0 [facility] ([place] Comment on above: Performed By: #### C BC, BMP, GFR, DIFF, MORPH ####[place] [address] Hemoglobin (Bld) [Mass/Vol] 9.9 G/dL Low 12.0-16.0 [facility] ([place] Comment on above: Performed By: #### C BC, BMP, GFR, DIFF, MORPH ####[place] [address] MCH (RBC) [Entitic mass] 32.8 pg Normal 27.0-33.0 [facility] ([place] Comment on above: Performed By: #### C BC, BMP, GFR, DIFF, MORPH ####[address] [address] MCHC (RBC) [Mass/Vol] 33.5 G/dL Normal 32.0-36.0 [facility] ([place] Comment on above: Performed By: #### C BC, BMP, GFR, DIFF, MORPH ####[place] [address] MCV (RBC) [Entitic vol] 97.9 fL Normal 80.0-99.0 [facility] ([place] Comment on above: Performed By: #### C BC, BMP, GFR, DIFF, MORPH ####[place] [address] Platelet mean volume (Bld) [Entitic vol] 7.0 fL Normal 6.6-10.5 [facility] ([place] Comment on above: Performed By: #### C BC, BMP, GFR, DIFF, MORPH ####[place] [address] Platelets (Bld) [#/Vol] 481 10 3/mcL High 150-450 [facility] ([place] Comment on above: Performed By: #### C BC, BMP, GFR, DIFF, MORPH ####[place] [address] RBC (Bld) [#/Vol] 3.03 10 6/mcL Low 4.10-5.30 [facility] [place] Comment on above: Performed By: #### C BC, BMP, GFR, DIFF, MORPH ####[place] [address] WBC (Bld) [#/Vol] 14.90 10 3/mcL High 4.50-10.80 [facility] ([place] Comment on above: Performed By: #### C BC, BMP, GFR, DIFF, MORPH ####[place] [address] .Auto Diffon 08-31-2019 Ammonia (P) [Mass/Vol] 1.40 10 3/mcL Normal 0.09-1.40 [facility] ([place] Comment on above: Performed By: #### C BC, ADIFF, ANEU, BMP, GFR ####[address] [address] Basophils (Bld) [#/Vol] 0.10 10 3/mcL Normal 0.00-0.27 [facility] ([place] Comment on above: Performed By: #### C BC, ADIFF, ANEU, BMP, GFR ####[address] [address] Basophils/100 WBC (Bld) 0.5 % Normal 0.0-2.5 [facility] ([place]) Comment on above: Performed By: #### C BC, ADIFF, ANEU, BMP, GFR ####[address] [address] Eosinophils (Bld) [#/Vol] 0.50 10 3/mcL Normal 0.00-0.65 [facility] ([place] Comment on above: Performed By: #### C BC, ADIFF, ANEU, BMP, GFR ####[address] [address] Eosinophils/100 WBC (Bld) 3.3 % Normal 0.0-6.0 [facility] ([place] Comment on above: Performed By: #### C BC, ADIFF, ANEU, BMP, GFR ####[address] [address] Lymphocytes (Bld) [#/Vol] 1.30 10 3/mcL Normal 0.90-4.32 [facility] ([place] Comment on above: Performed By: #### C BC, ADIFF, ANEU, BMP, GFR ####[address] [address] Lymphocytes/100 WBC (Bld) 8.1 % Low 20.0-40.0 [facility] ([place] Comment on above: Performed By: #### C BC, ADIFF, ANEU, BMP, GFR ####[address] [address] Monocytes/100 WBC (Bld) 9.0 % Normal 2.0-13.0 [facility] ([place]) Comment on above: Performed By: #### C BC, ADIFF, ANEU, BMP, GFR ####[address] [address] Neutrophils/100 WBC (Bld) 79.1 % High 50.0-75.0 [facility] ([place] Comment on above: Performed By: #### C BC, ADIFF, ANEU, BMP, GFR ####[address] [address] .GFRon 08-31-2019 GFR Non- >60 Normal [facility] ([place] Comment on above: Result Comment: GFR Population [...] #### C BC, ADIFF, ANEU, BMP, GFR ####[place] [address] GFR >60 Normal [facility] [place] Comment on above: Result Comment: GFR Population [...] #### C BC, ADIFF, ANEU, BMP, GFR ####[address] [address] .NEUABSon 08-31-2019 Neutrophils (Bld) [#/Vol] 12.50 10 3/mcL High 2.25-8.10 [facility] ([place] Comment on above: Performed By: #### C BC, ADIFF, ANEU, BMP, GFR ####[place] [address] BMPon 08-31-2019 Creatinine [Mass/Vol] 0.51 mg/dL Normal 0.50-1.20 [facility] ([place] Comment on above: Performed By: #### C BC, ADIFF, ANEU, BMP, GFR ####[place] [address] Urea nitrogen/Creatinine [Mass ratio] 19.6 ratio Normal 10.0-22.0 [facility] ([place] Comment on above: Performed By: #### C BC, ADIFF, ANEU, BMP, GFR ####[place] [address] Calcium [Mass/Vol] 8.6 mg/dL Normal 8.4-10.1 [facility] ([place] Comment on above: Performed By: #### C BC, ADIFF, ANEU, BMP, GFR ####[place] [address] Chloride [Moles/Vol] 101 mmol/L Normal 98-110 [facility] [place] Comment on above: Performed By: #### C BC, ADIFF, ANEU, BMP, GFR ####[place] [address] CO2 [Moles/Vol] 25 mmol/L Normal 22-32 [facility] ([place] Comment on above: Performed By: #### C BC, ADIFF, ANEU, BMP, GFR ####[place] [address] Electrolyte Balance 9.0 mEq/L Normal 4.0-15.0 [facility] ([place] Comment on above: Performed By: #### C BC, ADIFF, ANEU, BMP, GFR ####[place] [address] Glucose [Mass/Vol] 112 mg/dL Normal 82-115 [facility] [place] Comment on above: Performed By: #### C BC, ADIFF, ANEU, BMP, GFR ####[place] [address] Potassium [Moles/Vol] 4.0 mmol/L Normal 3.5-5.0 [facility] ([place] Comment on above: Performed By: #### C BC, ADIFF, ANEU, BMP, GFR ####[place] [address] Sodium [Moles/Vol] 135 mmol/L Low 136-145 [facility] [place] Comment on above: Performed By: #### C BC, ADIFF, ANEU, BMP, GFR ####[place] [address] Urea nitrogen [Mass/Vol] 10.0 mg/dL Normal 8.0-22.0 [facility] ([place] Comment on above: Performed By: #### C BC, ADIFF, ANEU, BMP, GFR ####[place] [address] CBCon 08-31-2019 Erythrocyte distribution width (RBC) [Ratio] 14.7 % Normal 11.5-15.5 [facility] ([place] Comment on above: Performed By: #### C BC, ADIFF, ANEU, BMP, GFR ####[place] [address] Hematocrit (Bld) [Volume fraction] 29.1 % Low 34.0-46.0 [facility] ([place] Comment on above: Performed By: #### C BC, ADIFF, ANEU, BMP, GFR ####[address] [address] Hemoglobin (Bld) [Mass/Vol] 9.5 G/dL Low 12.0-16.0 [facility] ([place] Comment on above: Performed By: #### C BC, ADIFF, ANEU, BMP, GFR ####[place] [address] MCH (RBC) [Entitic mass] 32.5 pg Normal 27.0-33.0 [facility] ([place] Comment on above: Performed By: #### C BC, ADIFF, ANEU, BMP, GFR ####[address] [address] MCHC (RBC) [Mass/Vol] 32.7 G/dL Normal 32.0-36.0 [facility] ([place] Comment on above: Performed By: #### C BC, ADIFF, ANEU, BMP, GFR ####[place] [address] MCV (RBC) [Entitic vol] 99.3 fL High 80.0-99.0 [facility] ([place] Comment on above: Performed By: #### C BC, ADIFF, ANEU, BMP, GFR ####[place] [address] Platelet mean volume (Bld) [Entitic vol] 7.3 fL Normal 6.6-10.5 [facility] ([place] Comment on above: Performed By: #### C BC, ADIFF, ANEU, BMP, GFR ####[place] [address] Platelets (Bld) [#/Vol] 485 10 3/mcL High 150-450 [facility] ([place] Comment on above: Performed By: #### C BC, ADIFF, ANEU, BMP, GFR ####[address] [address] RBC (Bld) [#/Vol] 2.93 10 6/mcL Low 4.10-5.30 [facility] [place] Comment on above: Performed By: #### C BC, ADIFF, ANEU, BMP, GFR ####[address] [address] WBC (Bld) [#/Vol] 15.80 10 3/mcL High 4.50-10.80 [facility] ([place] Comment on above: Performed By: #### C BC, ADIFF, ANEU, BMP, GFR ####[place] [id number] .GFRon 08-30-2019 GFR >60 Normal [facility] [place] Comment on above: Result Comment: GFR Population [...] #### C BC, BMP, GFR, DIFF, MORPH ####[address] [address] GFR Non- >60 Normal [facility] ([place] Comment on above: Result Comment: GFR Population [...] #### C BC, BMP, GFR, DIFF, MORPH ####[address] [address] .Manual Diffon 08-30-2019 Bands 1.0 % Normal 0.0-5.0 [facility] ([place] Comment on above: Performed By: #### C BC, BMP, GFR, DIFF, MORPH ####[address] [address] Basophil %, Manual 0.0 % Normal 0.0-2.5 [facility] [place] Comment on above: Performed By: #### C BC, BMP, GFR, DIFF, MORPH ####[address] [address] Basophil, Abs Manual 0.00 10 3/mcL Normal 0.00-0.27 [facility] ([place] Comment on above: Performed By: #### C BC, BMP, GFR, DIFF, MORPH ####[address] [address] Cells Counted 100 Normal [facility] ([place] Comment on above: Performed By: #### C BC, BMP, GFR, DIFF, MORPH ####[address] [address] Eosinophil %, Manual 4.0 % Normal 0.0-6.0 [facility] [place] Comment on above: Performed By: #### C BC, BMP, GFR, DIFF, MORPH ####[address] [address] Eosinophil, Abs Manual 0.64 10 3/mcL Normal 0.00-0.65 [facility] ([place] Comment on above: Performed By: #### C BC, BMP, GFR, DIFF, MORPH ####[address] [address] Lymphocyte %, Manual 15.0 % Low 20.0-40.0 [facility] [place] Comment on above: Performed By: #### C BC, BMP, GFR, DIFF, MORPH ####[address] [address] Lymphocyte, Abs Manual 2.38 10 3/mcL Normal 0.90-4.32 [facility] ([place] Comment on above: Performed By: #### C BC, BMP, GFR, DIFF, MORPH ####[address] [address] Metamyelocytes/100 WBC (Bld) 1.0 % Normal [facility] ([place] Comment on above: Performed By: #### C BC, BMP, GFR, DIFF, MORPH ####[address] [address] Monocyte %, Manual 9.0 % Normal 2.0-13.0 [facility] ([place] Comment on above: Performed By: #### C BC, BMP, GFR, DIFF, MORPH ####[place] [address] Monocyte, Abs Manual 1.43 10 3/mcL High 0.09-1.40 [facility] ([place] Comment on above: Performed By: #### C BC, BMP, GFR, DIFF, MORPH ####[place] [address] Neutrophil %, Manual 70.0 % Normal 50.0-75.0 [facility] [place] Comment on above: Performed By: #### C BC, BMP, GFR, DIFF, MORPH ####[place] [address] Neutrophil, Abs Manual 11.29 10 3/mcL High 2.25-8.10 [facility] ([place] Comment on above: Performed By: #### C BC, BMP, GFR, DIFF, MORPH ####[place] [address] .Morphon 08-30-2019 Platelets (Bld) [#/Vol] Slt Increased Normal [facility] ([place] Comment on above: Performed By: #### C BC, BMP, GFR, DIFF, MORPH ####[place] [address] Polychrom Slight Normal [facility] ([place] Comment on above: Performed By: #### C BC, BMP, GFR, DIFF, MORPH ####[place] [address] BMPon 08-30-2019 Creatinine [Mass/Vol] 0.47 mg/dL Low 0.50-1.20 [facility] ([place] Comment on above: Performed By: #### C BC, BMP, GFR, DIFF, MORPH ####[place] [address] Urea nitrogen/Creatinine [Mass ratio] 19.1 ratio Normal 10.0-22.0 [facility] ([place] Comment on above: Performed By: #### C BC, BMP, GFR, DIFF, MORPH ####[address] [address] Calcium [Mass/Vol] 8.4 mg/dL Normal 8.4-10.1 [facility] [place] Comment on above: Performed By: #### C BC, BMP, GFR, DIFF, MORPH ####[address] [address] Chloride [Moles/Vol] 100 mmol/L Normal 98-110 [facility] [place] Comment on above: Performed By: #### C BC, BMP, GFR, DIFF, MORPH ####[address] [address] CO2 [Moles/Vol] 26 mmol/L Normal 22-32 [facility] ([place] Comment on above: Performed By: #### C BC, BMP, GFR, DIFF, MORPH ####[address] [address] Electrolyte Balance 8.0 mEq/L Normal 4.0-15.0 [facility] ([place] Comment on above: Performed By: #### C BC, BMP, GFR, DIFF, MORPH ####[address] [address] Glucose [Mass/Vol] 103 mg/dL Normal 82-115 [facility] [place] Comment on above: Performed By: #### C BC, BMP, GFR, DIFF, MORPH ####[address] [address] Potassium [Moles/Vol] 3.3 mmol/L Low 3.5-5.0 [facility] ([place] Comment on above: Performed By: #### C BC, BMP, GFR, DIFF, MORPH ####[address] [address] Sodium [Moles/Vol] 134 mmol/L Low 136-145 [facility] [place] Comment on above: Performed By: #### C BC, BMP, GFR, DIFF, MORPH ####[address] [address] Urea nitrogen [Mass/Vol] 9.0 mg/dL Normal 8.0-22.0 [facility] ([place] Comment on above: Performed By: #### C BC, BMP, GFR, DIFF, MORPH ####[place] [address] CBCon 08-30-2019 Erythrocyte distribution width (RBC) [Ratio] 14.7 % Normal 11.5-15.5 [facility] ([place] Comment on above: Performed By: #### C BC, BMP, GFR, DIFF, MORPH ####[place] [address] Hematocrit (Bld) [Volume fraction] 29.8 % Low 34.0-46.0 [facility] ([place] Comment on above: Performed By: #### C BC, BMP, GFR, DIFF, MORPH ####[place] [address] Hemoglobin (Bld) [Mass/Vol] 9.8 G/dL Low 12.0-16.0 [facility] ([place] Comment on above: Performed By: #### C BC, BMP, GFR, DIFF, MORPH ####[place] [address] MCH (RBC) [Entitic mass] 32.7 pg Normal 27.0-33.0 [facility] ([place] Comment on above: Performed By: #### C BC, BMP, GFR, DIFF, MORPH ####[place] [address] MCHC (RBC) [Mass/Vol] 33.1 G/dL Normal 32.0-36.0 [facility] ([place] Comment on above: Performed By: #### C BC, BMP, GFR, DIFF, MORPH ####[place] [address] MCV (RBC) [Entitic vol] 98.7 fL Normal 80.0-99.0 [facility] ([place] Comment on above: Performed By: #### C BC, BMP, GFR, DIFF, MORPH ####[place] [address] Platelet mean volume (Bld) [Entitic vol] 7.1 fL Normal 6.6-10.5 [facility] ([place] Comment on above: Performed By: #### C BC, BMP, GFR, DIFF, MORPH ####[address] [address] Platelets (Bld) [#/Vol] 504 10 3/mcL High 150-450 [facility] ([place] Comment on above: Performed By: #### C BC, BMP, GFR, DIFF, MORPH ####[place] [address] RBC (Bld) [#/Vol] 3.02 10 6/mcL Low 4.10-5.30 [facility] [place] Comment on above: Performed By: #### C BC, BMP, GFR, DIFF, MORPH ####[place] [id number] WBC (Bld) [#/Vol] 15.90 10 3/mcL High 4.50-10.80 [facility] ([place] Comment on above: Performed By: #### C BC, BMP, GFR, DIFF, MORPH ####[place] [address] .GFRon 08-29-2019 GFR Non- >60 Normal [facility] ([place] Comment on above: Result Comment: GFR Population [...] #### C BC, BMP, GFR, DIFF, MORPH ####[place] [address] GFR >60 Normal [facility] [place] Comment on above: Result Comment: GFR Population [...] #### C BC, BMP, GFR, DIFF, MORPH ####[place] [address] .Manual Diffon 08-29-2019 Basophil %, Manual 1.0 % Normal 0.0-2.5 [facility] [place] Comment on above: Performed By: #### C BC, BMP, GFR, DIFF, MORPH ####[place] [address] Basophil, Abs Manual 0.18 10 3/mcL Normal 0.00-0.27 [facility] ([place] Comment on above: Performed By: #### C BC, BMP, GFR, DIFF, MORPH ####[place] [address] Cells Counted 100 Normal [facility] ([place] Comment on above: Performed By: #### C BC, BMP, GFR, DIFF, MORPH ####[place] [address] Eosinophil %, Manual 0.0 % Normal 0.0-6.0 [facility] [place] Comment on above: Performed By: #### C BC, BMP, GFR, DIFF, MORPH ####[place] [address] Eosinophil, Abs Manual 0.00 10 3/mcL Normal 0.00-0.65 [facility] ([place] Comment on above: Performed By: #### C BC, BMP, GFR, DIFF, MORPH ####[place] [address] Lymphocyte %, Manual 7.0 % Low 20.0-40.0 [facility] [place] Comment on above: Performed By: #### C BC, BMP, GFR, DIFF, MORPH ####[address] [address] Lymphocyte, Abs Manual 1.29 10 3/mcL Normal 0.90-4.32 [facility] ([place] Comment on above: Performed By: #### C BC, BMP, GFR, DIFF, MORPH ####[place] [address] Monocyte %, Manual 5.0 % Normal 2.0-13.0 [facility] [place] Comment on above: Performed By: #### C BC, BMP, GFR, DIFF, MORPH ####[place] [address] Monocyte, Abs Manual 0.92 10 3/mcL Normal 0.09-1.40 [facility] ([place] Comment on above: Performed By: #### C BC, BMP, GFR, DIFF, MORPH ####[place] [address] Myelocyte 2.0 % Normal [facility] ([place] Comment on above: Performed By: #### C BC, BMP, GFR, DIFF, MORPH ####[place] [address] Neutrophil %, Manual 85.0 % High 50.0-75.0 [facility] [place] Comment on above: Performed By: #### C BC, BMP, GFR, DIFF, MORPH ####[place] [address] Neutrophil, Abs Manual 15.64 10 3/mcL High 2.25-8.10 [facility] ([place] Comment on above: Performed By: #### C BC, BMP, GFR, DIFF, MORPH ####[place] [address] .Morphon 08-29-2019 Platelets (Bld) [#/Vol] Normal Normal [facility] ([place] Comment on above: Performed By: #### C BC, BMP, GFR, DIFF, MORPH ####[address] [address] Polychrom Slight Normal [facility] ([place] Comment on above: Performed By: #### C BC, BMP, GFR, DIFF, MORPH ####[address] [address] BMPon 08-29-2019 Calcium [Mass/Vol] 7.8 mg/dL Low 8.4-10.1 [facility] [place] Comment on above: Performed By: #### C BC, BMP, GFR, DIFF, MORPH ####[place] [address] Chloride [Moles/Vol] 96 mmol/L Low 98-110 [facility] [place] Comment on above: Performed By: #### C BC, BMP, GFR, DIFF, MORPH ####[place] [address] CO2 [Moles/Vol] 26 mmol/L Normal 22-32 [facility] [place] Comment on above: Performed By: #### C BC, BMP, GFR, DIFF, MORPH ####[place] [address] Creatinine [Mass/Vol] 0.44 mg/dL Low 0.50-1.20 [facility] ([place] Comment on above: Performed By: #### C BC, BMP, GFR, DIFF, MORPH ####[place] [address] Electrolyte Balance 9.0 mEq/L Normal 4.0-15.0 [facility] ([place] Comment on above: Performed By: #### C BC, BMP, GFR, DIFF, MORPH ####[place] [address] Glucose [Mass/Vol] 146 mg/dL High 82-115 [facility] [place] Comment on above: Performed By: #### C BC, BMP, GFR, DIFF, MORPH ####[place] [address] Potassium [Moles/Vol] 3.4 mmol/L Low 3.5-5.0 [facility] ([place]) Comment on above: Performed By: #### C BC, BMP, GFR, DIFF, MORPH ####[place] [id number] Sodium [Moles/Vol] 131 mmol/L Low 136-145 [facility] ([place]) Comment on above: Performed By: #### C BC, BMP, GFR, DIFF, MORPH ####[place] [id number] Urea nitrogen [Mass/Vol] 9.0 mg/dL Normal 8.0-22.0 [facility] ([place]) Comment on above: Performed By: #### C BC, BMP, GFR, DIFF, MORPH ####[place] [id number] Urea nitrogen/Creatinine [Mass ratio] 20.5 ratio Normal 10.0-22.0 [facility] ([place] Comment on above: Performed By: #### C BC, BMP, GFR, DIFF, MORPH ####[place] [address] CBCon 08-29-2019 Erythrocyte distribution width (RBC) [Ratio] 14.4 % Normal 11.5-15.5 [facility] ([place] Comment on above: Performed By: #### C BC, BMP, GFR, DIFF, MORPH ####[place] [address] Hematocrit (Bld) [Volume fraction] 29.2 % Low 34.0-46.0 [facility] ([place] Comment on above: Performed By: #### C BC, BMP, GFR, DIFF, MORPH ####[place] [address] Hemoglobin (Bld) [Mass/Vol] 9.7 G/dL Low 12.0-16.0 [facility] ([place] Comment on above: Performed By: #### C BC, BMP, GFR, DIFF, MORPH ####[place] [address] MCH (RBC) [Entitic mass] 32.5 pg Normal 27.0-33.0 [facility] ([place] Comment on above: Performed By: #### C BC, BMP, GFR, DIFF, MORPH ####[address] [address] MCHC (RBC) [Mass/Vol] 33.2 G/dL Normal 32.0-36.0 [facility] ([place] Comment on above: Performed By: #### C BC, BMP, GFR, DIFF, MORPH ####[place] [address] MCV (RBC) [Entitic vol] 97.8 fL Normal 80.0-99.0 [facility] ([place] Comment on above: Performed By: #### C BC, BMP, GFR, DIFF, MORPH ####[place] [address] Platelet mean volume (Bld) [Entitic vol] 6.7 fL Normal 6.6-10.5 [facility] ([place] Comment on above: Performed By: #### C BC, BMP, GFR, DIFF, MORPH ####[place] [address] Platelets (Bld) [#/Vol] 434 10 3/mcL Normal 150-450 [facility] ([place] Comment on above: Performed By: #### C BC, BMP, GFR, DIFF, MORPH ####[place] [address] RBC (Bld) [#/Vol] 2.98 10 6/mcL Low 4.10-5.30 [facility] [place] Comment [place] above: Performed By: #### C BC, BMP, GFR, DIFF, MORPH ####[place] [address] WBC (Bld) [#/Vol] 18.40 10 3/mcL High 4.50-10.80 [facility] ([place] Comment on above: Performed By: #### C BC, BMP, GFR, DIFF, MORPH ####[place] [address] .Auto Diffon 08-28-2019 Ammonia (P) [Mass/Vol] 2.30 10 3/mcL High 0.09-1.40 [facility] ([place] Comment on above: Performed By: #### M G, CMP, GFR, CBC, ADIFF, ANEU ####[address] [address] Basophils (Bld) [#/Vol] 0.10 10 3/mcL Normal 0.00-0.27 [facility] ([place]) Comment on above: Performed By: #### M G, CMP, GFR, CBC, ADIFF, ANEU ####[address] [address] Basophils/100 WBC (Bld) 0.4 % Normal 0.0-2.5 [facility] ([place]) Comment on above: Performed By: #### M G, CMP, GFR, CBC, ADIFF, ANEU ####[address] [address] Eosinophils (Bld) [#/Vol] 0.50 10 3/mcL Normal 0.00-0.65 [facility] ([place]) Comment on above: Performed By: #### M G, CMP, GFR, CBC, ADIFF, ANEU ####[address] [address] Eosinophils/100 WBC (Bld) 2.8 % Normal 0.0-6.0 [facility] ([place] Comment on above: Performed By: #### M G, CMP, GFR, CBC, ADIFF, ANEU ####[address] [address] Lymphocytes (Bld) [#/Vol] 1.50 10 3/mcL Normal 0.90-4.32 [facility] ([place] Comment on above: Performed By: #### M G, CMP, GFR, CBC, ADIFF, ANEU ####[address] [address] Lymphocytes/100 WBC (Bld) 8.2 % Low 20.0-40.0 [facility] ([place] Comment on above: Performed By: #### M G, CMP, GFR, CBC, ADIFF, ANEU ####[address] [address] Monocytes/100 WBC (Bld) 13.1 % High 2.0-13.0 [facility] ([place] Comment on above: Performed By: #### M G, CMP, GFR, CBC, ADIFF, ANEU ####[address] [address] Neutrophils/100 WBC (Bld) 75.5 % High 50.0-75.0 [facility] [place] Comment [place] above: Performed By: #### M G, CMP, GFR, CBC, ADIFF, ANEU ####[address] [address] .GFRon 08-28-2019 GFR >60 [facility] [place] Comment [place]: Result Comment: GFR Population [...] meters Performed By: #### G FR, BMP ####[address] [address] GFR Non- >60 Normal [facility] ([place] Comment on above: Result Comment: GFR Population [...] meters Performed By: #### G FR, BMP ####[address] [address] .NEUABSon 08-28-2019 Neutrophils (Bld) [#/Vol] 13.50 10 3/mcL High 2.25-8.10 [facility] ([place] Comment on above: Performed By: #### M G, CMP, GFR, CBC, ADIFF, ANEU ####[place] [address] BMPon 08-28-2019 Potassium [Moles/Vol] 3.5 mmol/L Normal 3.5-5.0 [facility] ([place] Comment on above: Performed By: #### G FR, BMP ####[place] [address] Calcium [Mass/Vol] 7.5 mg/dL Low 8.4-10.1 [facility] ([place] Comment on above: Performed By: #### G FR, BMP ####[place] [address] Chloride [Moles/Vol] 100 mmol/L Normal 98-110 [facility] [place] Comment [place] above: Performed By: #### G FR, BMP ####[place] [address] CO2 [Moles/Vol] 25 mmol/L Normal 22-32 [facility] ([place] Comment [place] above: Performed By: #### G FR, BMP ####[place] [address] Creatinine [Mass/Vol] 0.45 mg/dL Low 0.50-1.20 [facility] ([place] Comment [place] above: Performed By: #### G FR, BMP ####[place] [address] Electrolyte Balance 8.0 mEq/L Normal 4.0-15.0 [facility] ([place] Comment [place] above: Performed By: #### G FR, BMP ####[place] [address] Glucose [Mass/Vol] 103 mg/dL Normal 82-115 [facility] [place] Comment on above: Performed By: #### G FR, BMP ####[place] [address] Sodium [Moles/Vol] 133 mmol/L Low 136-145 [facility] [place] Comment on above: Performed By: #### G FR, BMP ####[address] [address] Urea nitrogen [Mass/Vol] 10.0 mg/dL Normal 8.0-22.0 [facility] ([place] Comment on above: Performed By: #### G FR, BMP ####[place] [address] Urea nitrogen/Creatinine [Mass ratio] 22.2 ratio High 10.0-22.0 [facility] ([place] Comment on above: Performed By: #### G FR, BMP ####[place] [address] CBCon 08-28-2019 Erythrocyte distribution width (RBC) [Ratio] 14.2 % Normal 11.5-15.5 [facility] ([place] Comment on above: Performed By: #### M G, CMP, GFR, CBC, ADIFF, ANEU ####[place] [address] Hematocrit (Bld) [Volume fraction] 27.4 % Low 34.0-46.0 [facility] ([place] Comment on above: Performed By: #### M G, CMP, GFR, CBC, ADIFF, ANEU ####[place] [address] Hemoglobin (Bld) [Mass/Vol] 9.1 G/dL Low 12.0-16.0 [facility] ([place] Comment on above: Performed By: #### M G, CMP, GFR, CBC, ADIFF, ANEU ####[place] [address] MCH (RBC) [Entitic mass] 33.0 pg Normal 27.0-33.0 [facility] ([place] Comment on above: Performed By: #### M G, CMP, GFR, CBC, ADIFF, ANEU ####[address] [address] MCHC (RBC) [Mass/Vol] 33.2 G/dL Normal 32.0-36.0 [facility] ([place] Comment on above: Performed By: #### M G, CMP, GFR, CBC, ADIFF, ANEU ####[address] [address] MCV (RBC) [Entitic vol] 99.6 fL High 80.0-99.0 [facility] ([place] Comment on above: Performed By: #### M G, CMP, GFR, CBC, ADIFF, ANEU ####[place] [address] Platelet mean volume (Bld) [Entitic vol] 7.1 fL Normal 6.6-10.5 [facility] ([place] Comment on above: Performed By: #### M G, CMP, GFR, CBC, ADIFF, ANEU ####[place] [id number] Platelets (Bld) [#/Vol] 363 10 3/mcL Normal 150-450 [facility] [place] Comment on above: Performed By: #### M G, CMP, GFR, CBC, ADIFF, ANEU ####[place] [id number] RBC (Bld) [#/Vol] 2.75 10 6/mcL Low 4.10-5.30 [facility] [place] Comment [place] above: Performed By: #### M G, CMP, GFR, CBC, ADIFF, ANEU ####[place] [id number] WBC (Bld) [#/Vol] 17.90 10 3/mcL High 4.50-10.80 [facility] ([place] Comment on above: Performed By: #### M G, CMP, GFR, CBC, ADIFF, ANEU ####[address] [address] CBLon 08-28-2019 CBL . MICRO - Microbiology [...] *1: This test was performed at: [address], [address] [place] [address] ([place] Comment on above: Performed By: #### C BC, CMP, GFR, DIFF, MORPH #### [place] [address] CBL . MICRO - Microbiology PROCEDURE: Blood [...] Locations *1: This test was performed at: [facility], [address] [place] [address], [address] [place] [address] ([place] Comment on above: Performed By: #### C BC, CMP, GFR, DIFF, MORPH #### [place] [address] .GFRon 08-27-2019 GFR >60 [facility] ([place] Comment on above: Result Comment: GFR Population [...] Eddie G, CMP, GFR, CBC, ADIFF, ANEU ####[address] [address] GFR Non- >60 Normal [facility] ([place] Comment on above: Result Comment: GFR Population [...] Eddie G, CMP, GFR, CBC, ADIFF, ANEU ####[address] [address] .Manual Diffon 08-27-2019 Bands 1.0 % Normal 0.0-5.0 [facility] ([place] Comment on above: Performed By: #### Anatoly BC, DIFF, MORPH ####[address] [address] Basophil %, Manual 0.0 % Normal 0.0-2.5 [facility] ([place] Comment on above: Performed By: #### Anatoly BC, DIFF, MORPH ####[address] [address] Basophil, Abs Manual 0.00 10 3/mcL Normal 0.00-0.27 [facility] ([place] Comment on above: Performed By: #### C BC, DIFF, MORPH ####[address] [address] Cells Counted 100 Normal [facility] ([place] Comment on above: Performed By: #### C BC, DIFF, MORPH ####[address] [address] Eosinophil %, Manual 5.0 % Normal 0.0-6.0 [facility] [place] Comment [place] above: Performed By: #### C BC, DIFF, MORPH ####[place] [address] Eosinophil, Abs Manual 0.84 10 3/mcL High 0.00-0.65 [facility] ([place] Comment on above: Performed By: #### C BC, DIFF, MORPH ####[place] [address] Lymphocyte %, Manual 5.0 % Low 20.0-40.0 [facility] [place] Comment [place] above: Performed By: #### C BC, DIFF, MORPH ####[address] [address] Lymphocyte, Abs Manual 0.84 10 3/mcL Low 0.90-4.32 [facility] ([place] Comment on above: Performed By: #### C BC, DIFF, MORPH ####[place] [address] Monocyte %, Manual 6.0 % Normal 2.0-13.0 [facility] [place] Comment on above: Performed By: #### C BC, DIFF, MORPH ####[place] [address] Monocyte, Abs Manual 1.01 10 3/mcL Normal 0.09-1.40 [facility] ([place] Comment on above: Performed By: #### C BC, DIFF, MORPH ####[place] [address] Neutrophil %, Manual 83.0 % High 50.0-75.0 [facility] [place] Comment on above: Performed By: #### C BC, DIFF, MORPH ####[place] [address] Neutrophil, Abs Manual 14.20 10 3/mcL High 2.25-8.10 [facility] ([place] Comment on above: Performed By: #### C BC, DIFF, MORPH ####[place] [address] .Morphon 08-27-2019 Platelets (Bld) [#/Vol] Normal Normal [facility] ([place] Comment on above: Performed By: #### C BC, DIFF, MORPH ####[place] [address] Polychrom Slight Normal [facility] ([place] Comment on above: Performed By: #### C BC, DIFF, MORPH ####[place] [address] CBCon 08-27-2019 Erythrocyte distribution width (RBC) [Ratio] 14.2 % Normal 11.5-15.5 [facility] ([place] Comment on above: Performed By: #### C BC, DIFF, MORPH ####[place] [address] Hematocrit (Bld) [Volume fraction] 29.2 % Low 34.0-46.0 [facility] ([place] Comment on above: Performed By: #### C BC, DIFF, MORPH ####[place] [address] Hemoglobin (Bld) [Mass/Vol] 10.1 G/dL Low 12.0-16.0 [facility] ([place] Comment on above: Performed By: #### C BC, DIFF, MORPH ####[place] [address] MCH (RBC) [Entitic mass] 33.8 pg High 27.0-33.0 [facility] ([place] Comment on above: Performed By: #### C BC, DIFF, MORPH ####[address] [place] [address] MCHC (RBC) [Mass/Vol] 34.6 G/dL Normal 32.0-36.0 [facility] ([place] Comment on above: Performed By: #### C BC, DIFF, MORPH ####[address] [address] MCV (RBC) [Entitic vol] 97.7 fL Normal 80.0-99.0 [facility] ([place] Comment on above: Performed By: #### C BC, DIFF, MORPH ####[address] [address] Platelet mean volume (Bld) [Entitic vol] 6.6 fL Normal 6.6-10.5 [facility] ([place] Comment on above: Performed By: #### C BC, DIFF, MORPH ####[address] [address] Platelets (Bld) [#/Vol] 342 10 3/mcL Normal 150-450 [facility] ([place] Comment on above: Performed By: #### C BC, DIFF, MORPH ####[address] [address] RBC (Bld) [#/Vol] 2.99 10 6/mcL Low 4.10-5.30 [facility] [place] Comment on above: Performed By: #### C BC, DIFF, MORPH ####[address] [address] WBC (Bld) [#/Vol] 16.90 10 3/mcL High 4.50-10.80 [facility] ([place] Comment on above: Performed By: #### C BC, DIFF, MORPH ####[address] [address] CMPon 08-27-2019 Albumin/Globulin [Mass ratio] 0.8 {ratio} Low 0.9-1.6 [facility] ([place] Comment on above: Performed By: #### M G, CMP, GFR, CBC, ADIFF, ANEU ####[address] [address] ALP [Catalytic activity/Vol] 99 U/L Normal 38-126 [facility] ([place] Comment on above: Performed By: #### M G, CMP, GFR, CBC, ADIFF, ANEU ####[address] [address] ALT [Catalytic activity/Vol] 50 U/L High 10-49 [facility] ([place] Comment on above: Performed By: #### M G, CMP, GFR, CBC, ADIFF, ANEU ####[address] [address] Bili Total 0.9 mg/dL Normal 0.2-1.2 [facility] ([place] Comment on above: Result Comment: Use of this assay is not recommended for patients undergoing treatment with eltrombopag due to the potential for falsely elevated results. Performed By: #### M G, CMP, GFR, CBC, ADIFF, ANEU ####[address] [address] Creatinine [Mass/Vol] 0.39 mg/dL Low 0.50-1.20 [facility] ([place] Comment on above: Performed By: #### M G, CMP, GFR, CBC, ADIFF, ANEU ####[address] [address] Globulin (S) [Mass/Vol] 3.2 G/dL Normal 1.5-3.8 [facility] ([place] Comment on above: Performed By: #### M G, CMP, GFR, CBC, ADIFF, ANEU ####[address] [address] Protein [Mass/Vol] 5.8 G/dL Low 6.0-8.5 [facility] [place] Comment on above: Performed By: #### M G, CMP, GFR, CBC, ADIFF, ANEU ####[address] [address] Urea nitrogen/Creatinine [Mass ratio] 25.6 ratio High 10.0-22.0 [facility] ([place] Comment on above: Performed By: #### M G, CMP, GFR, CBC, ADIFF, ANEU ####[address] [address] Potassium [Moles/Vol] 2.5 mmol/L Critically abnormal 3.5-5.0 [facility] ([place] Comment on above: Performed By: #### M G, CMP, GFR, CBC, ADIFF, ANEU ####[address] [address] Albumin [Mass/Vol] 2.6 G/dL Low 3.2-4.8 [facility] [place] Comment on above: Performed By: #### M G, CMP, GFR, CBC, ADIFF, ANEU ####[address] [address] AST [Catalytic activity/Vol] 38 U/L High 8-34 [facility] [place] Comment [place] above: Performed By: #### M G, CMP, GFR, CBC, ADIFF, ANEU ####[address] [address] Calcium [Mass/Vol] 7.3 mg/dL Low 8.4-10.1 [facility] [place] Comment on above: Performed By: #### M G, CMP, GFR, CBC, ADIFF, ANEU ####[address] [address] Chloride [Moles/Vol] 96 mmol/L Low 98-110 [facility] [place] Comment [place] above: Performed By: #### M G, CMP, GFR, CBC, ADIFF, ANEU ####[address] [address] CO2 [Moles/Vol] 27 mmol/L Normal 22-32 [facility] ([place] Comment [place] above: Performed By: #### M G, CMP, GFR, CBC, ADIFF, ANEU ####[address] [address] Electrolyte Balance 10.0 mEq/L Normal 4.0-15.0 [facility] ([place] Comment [place] above: Performed By: #### M G, CMP, GFR, CBC, ADIFF, ANEU ####[address] [address] Glucose [Mass/Vol] 100 mg/dL Normal 82-115 [facility] [place] Comment on above: Performed By: #### M G, CMP, GFR, CBC, ADIFF, ANEU ####[address] [address] Sodium [Moles/Vol] 133 mmol/L Low 136-145 [facility] [place] Comment on above: Performed By: #### M G, CMP, GFR, CBC, ADIFF, ANEU ####[address] [address] Urea nitrogen [Mass/Vol] 10.0 mg/dL Normal 8.0-22.0 [facility] ([place] Comment on above: Performed By: #### M G, CMP, GFR, CBC, ADIFF, ANEU ####[address] [address] MGon 08-27-2019 Magnesium [Mass/Vol] 1.9 mg/dL Normal 1.6-2.4 [facility] [place] Comment [place] above: Performed By: #### M G, CMP, GFR, CBC, ADIFF, ANEU ####[address] [address] .Auto Diffon 08-25-2019 Ammonia (P) [Mass/Vol] 1.40 10 3/mcL Normal 0.09-1.40 [facility] ([place] Comment on above: Performed By: #### C BC, CMP, GFR, DIFF, MORPH #### [address] [address] Basophils (Bld) [#/Vol] 0.00 10 3/mcL Normal 0.00-0.27 [facility] ([place] Comment on above: Performed By: #### C BC, CMP, GFR, DIFF, MORPH #### [address] [address] Basophils/100 WBC (Bld) 0.2 % Normal 0.0-2.5 [facility] ([place] Comment on above: Performed By: #### C BC, CMP, GFR, DIFF, MORPH #### [address] [address] Eosinophils (Bld) [#/Vol] 0.10 10 3/mcL Normal 0.00-0.65 [facility] [place] Comment on above: Performed By: #### C BC, CMP, GFR, DIFF, MORPH #### [address] [address] Eosinophils/100 WBC (Bld) 0.3 % Normal 0.0-6.0 [facility] ([place] Comment on above: Performed By: #### C BC, CMP, GFR, DIFF, MORPH #### [address] [address] Lymphocytes (Bld) [#/Vol] 0.60 10 3/mcL Low 0.90-4.32 [facility] [place] Comment on above: Performed By: #### C BC, CMP, GFR, DIFF, MORPH #### [address] [address] Lymphocytes/100 WBC (Bld) 2.9 % Low 20.0-40.0 [facility] ([place] Comment on above: Performed By: #### C BC, CMP, GFR, DIFF, MORPH #### [address] [address] Monocytes/100 WBC (Bld) 7.4 % Normal 2.0-13.0 [facility] ([place] Comment on above: Performed By: #### C BC, CMP, GFR, DIFF, MORPH #### [address] [address] Neutrophils/100 WBC (Bld) 89.2 % High 50.0-75.0 [facility] ([place] Comment on above: Performed By: #### C BC, CMP, GFR, DIFF, MORPH #### [address] [address] .GFRon 08-25-2019 GFR >60 Normal [facility] [place] Comment on above: Result Comment: GFR Population [...] C BC, CMP, GFR, DIFF, MORPH #### [address] [address] GFR Non- >60 Normal [facility] ([place] Comment on above: Result Comment: GFR Population [...] C BC, CMP, GFR, DIFF, MORPH #### [address] [address] .NEUABSon 08-25-2019 Neutrophils (Bld) [#/Vol] 17.20 10 3/mcL High 2.25-8.10 [facility] ([place] Comment on above: Performed By: #### C BC, CMP, GFR, DIFF, MORPH #### [address] [address] BMPon 08-25-2019 Calcium [Mass/Vol] 6.7 mg/dL Critically abnormal 8.4-10.1 [facility] ([place] Comment on above: Performed By: #### C BC, CMP, GFR, DIFF, MORPH #### [address] [address] Potassium [Moles/Vol] 2.6 mmol/L Critically abnormal 3.5-5.0 [facility] ([place] Comment on above: Performed By: #### C BC, CMP, GFR, DIFF, MORPH #### [address] [address] Chloride [Moles/Vol] 99 mmol/L Normal 98-110 [facility] [place] Comment on above: Performed By: #### C BC, CMP, GFR, DIFF, MORPH #### [address] [address] CO2 [Moles/Vol] 25 mmol/L Normal 22-32 [facility] ([place] Comment on above: Performed By: #### C BC, CMP, GFR, DIFF, MORPH #### [address] [address] Creatinine [Mass/Vol] 0.38 mg/dL Low 0.50-1.20 [facility] ([place] Comment on above: Performed By: #### C BC, CMP, GFR, DIFF, MORPH #### [address] [address] Electrolyte Balance 11.0 mEq/L Normal 4.0-15.0 [facility] ([place] Comment on above: Performed By: #### C BC, CMP, GFR, DIFF, MORPH #### [address] [address] Glucose [Mass/Vol] 72 mg/dL Low 82-115 [facility] [place] Comment on above: Performed By: #### C BC, CMP, GFR, DIFF, MORPH #### [address] [address] Sodium [Moles/Vol] 135 mmol/L Low 136-145 [facility] [place] Comment on above: Performed By: #### C BC, CMP, GFR, DIFF, MORPH #### [address] [address] Urea nitrogen [Mass/Vol] 20.0 mg/dL Normal 8.0-22.0 [facility] ([place] Comment on above: Performed By: #### C BC, CMP, GFR, DIFF, MORPH #### [place] [phone] Urea nitrogen/Creatinine [Mass ratio] 52.6 ratio High 10.0-22.0 [facility] ([place] Comment on above: Performed By: #### C BC, CMP, GFR, DIFF, MORPH #### [address] [address] CBCon 08-25-2019 Erythrocyte distribution width (RBC) [Ratio] 14.5 % Normal 11.5-15.5 [facility] ([place] Comment on above: Performed By: #### C BC, CMP, GFR, DIFF, MORPH #### [place] [phone] Hematocrit (Bld) [Volume fraction] 27.5 % Low 34.0-46.0 [facility] ([place] Comment on above: Performed By: #### C BC, CMP, GFR, DIFF, MORPH #### [place] [phone] Hemoglobin (Bld) [Mass/Vol] 9.1 G/dL Low 12.0-16.0 [facility] ([place] Comment on above: Performed By: #### C BC, CMP, GFR, DIFF, MORPH #### [place] [id number] MCH (RBC) [Entitic mass] 33.1 pg High 27.0-33.0 [facility] ([place] Comment on above: Performed By: #### C BC, CMP, GFR, DIFF, MORPH #### [place] [id number] MCHC (RBC) [Mass/Vol] 33.3 G/dL Normal 32.0-36.0 [facility] ([place] Comment on above: Performed By: #### C BC, CMP, GFR, DIFF, MORPH #### [place] [phone] MCV (RBC) [Entitic vol] 99.7 fL High 80.0-99.0 [facility] ([place] Comment on above: Performed By: #### C BC, CMP, GFR, DIFF, MORPH #### [facility] [address] [place] [address] Platelet mean volume (Bld) [Entitic vol] 7.5 fL Normal 6.6-10.5 [facility] ([place] Comment on above: Performed By: #### C BC, CMP, GFR, DIFF, MORPH #### [address] [address] Platelets (Bld) [#/Vol] 211 10 3/mcL Normal 150-450 [facility] ([place] Comment on above: Performed By: #### C BC, CMP, GFR, DIFF, MORPH #### [address] [address] RBC (Bld) [#/Vol] 2.76 10 6/mcL Low 4.10-5.30 [facility] [place] Comment on above: Performed By: #### C BC, CMP, GFR, DIFF, MORPH #### [address] [address] WBC (Bld) [#/Vol] 19.30 10 3/mcL High 4.50-10.80 [facility] ([place] Comment on above: Performed By: #### C BC, CMP, GFR, DIFF, MORPH #### [address] [address] COVIDon 08-25-2019 COVID 19 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 This test was developed and its performance characteristics determined by [facility] [place]. This test has been authorized by FDA under an Emergency Use Authorization (EUA). This test has been validated in accordance with the FDA's Guidance Document Policy for Diagnostics Testing in Laboratories Certified to Perform High Complexity Testing under CLIA prior to Emergency use Authorization for Coronavirus Disease 2019 during the Public Health Emergency issued on June 20, 2019. Performed By: [facility] [address] [place] [address] Manager Night: Rigoberto Avery III, M.D. 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 MICRO - Microbiology [...] *1: This test was performed at: [address], [address] [place] [address] ([place] Comment on above: Performed By: #### C BC, CMP, GFR, DIFF, MORPH #### [place] [phone] [place] 08-25-2019 Potassium [Moles/Vol] 3.3 mmol/L Low 3.5-5.0 [facility] ([place] Comment on above: Performed By: #### C BC, CMP, GFR, DIFF, MORPH #### [place] [address] MGon 08-25-2019 Magnesium [Mass/Vol] 2.3 mg/dL Normal 1.6-2.4 [facility] [place] Comment on above: Performed By: #### C BC, CMP, GFR, DIFF, MORPH #### [address] [address] [address] PHOSon 08-25-2019 Phosphate [Mass/Vol] 2.6 mg/dL Normal 2.5-4.5 [facility] [place] Comment [place]: Performed By: #### C BC, CMP, GFR, DIFF, MORPH #### [address] [address] .Auto Diffon 08-24-2019 Ammonia (P) [Mass/Vol] 1.50 10 3/mcL High 0.09-1.40 [facility] ([place] Comment on above: Performed By: #### C BC, CMP, GFR, DIFF, MORPH #### [place] [address] Basophils (Bld) [#/Vol] 0.00 10 3/mcL Normal 0.00-0.27 [facility] ([place] Comment on above: Performed By: #### C BC, CMP, GFR, DIFF, MORPH #### [address] [address] Basophils/100 WBC (Bld) 0.1 % Normal 0.0-2.5 [facility] ([place] Comment on above: Performed By: #### C BC, CMP, GFR, DIFF, MORPH #### [address] [address] Eosinophils (Bld) [#/Vol] 0.00 10 3/mcL Normal 0.00-0.65 [facility] [place] Comment on above: Performed By: #### C BC, CMP, GFR, DIFF, MORPH #### [address] [address] Eosinophils/100 WBC (Bld) 0.2 % Normal 0.0-6.0 [facility] [place] Comment on above: Performed By: #### C BC, CMP, GFR, DIFF, MORPH #### [address] [address] Lymphocytes (Bld) [#/Vol] 1.00 10 3/mcL Normal 0.90-4.32 [facility] [place] Comment on above: Performed By: #### C BC, CMP, GFR, DIFF, MORPH #### [address] [address] Lymphocytes/100 WBC (Bld) 4.2 % Low 20.0-40.0 [facility] ([place] Comment on above: Performed By: #### C BC, CMP, GFR, DIFF, MORPH #### [address] [address] Monocytes/100 WBC (Bld) 6.7 % Normal 2.0-13.0 [facility] ([place] Comment on above: Performed By: #### C BC, CMP, GFR, DIFF, MORPH #### [address] [address] Neutrophils/100 WBC (Bld) 88.8 % High 50.0-75.0 [facility] [place] Comment on above: Performed By: #### C BC, CMP, GFR, DIFF, MORPH #### [address] [address] .GFRon 08-24-2019 GFR Non- >60 Normal [facility] ([place] Comment on above: Result Comment: GFR Population [...] C BC, CMP, GFR, DIFF, MORPH #### [address] [address] GFR >60 Normal [facility] [place] Comment [place]: Result Comment: GFR Population [...] C BC, CMP, GFR, DIFF, MORPH #### [address] [address] .Morphon 08-24-2019 Anisocytosis Ql (Bld) Slight Normal [facility] ([place] Comment on above: Performed By: #### C BC, CMP, GFR, DIFF, MORPH #### [place] [address] Hypochrom Slight Normal [facility] [place] Comment on above: Performed By: #### C BC, CMP, GFR, DIFF, MORPH #### [place] [address] Platelets (Bld) [#/Vol] Normal Normal [facility] ([place] Comment on above: Performed By: #### C BC, CMP, GFR, DIFF, MORPH #### [place] [address] Poik Slight Normal [facility] [place] Comment on above: Performed By: #### C BC, CMP, GFR, DIFF, MORPH #### [place] [address] .NEUABSon 08-24-2019 Neutrophils (Bld) [#/Vol] 20.50 10 3/mcL High 2.25-8.10 [facility] ([place] Comment on above: Performed By: #### C BC, CMP, GFR, DIFF, MORPH #### [place] [address] AMYon 08-24-2019 Amylase [Catalytic activity/Vol] 85 U/L Normal 25-115 [facility] [place] Comment on above: Performed By: #### C BC, CMP, GFR, DIFF, MORPH #### [place] [address] APTTon 08-24-2019 aPTT Coag (Bld) [Time] 26.2 s Normal 25.0-35.0 [facility] ([place] Comment on above: Result Comment: For Heparin anticoagulation therapy, the recommended therapeutic range is: 54-77 seconds (APTT Correlation with Anti-Xa therapeutic range of 0.3-0.7 units/ml). PLEASE REFERENCE THE PHARMACY PROTOCOL FOR DOSING. Performed By: #### C BC, CMP, GFR, DIFF, MORPH #### [place] [address] aPTT Coag (Bld) [Time] None Normal [facility] ([place] Comment [place] above: Performed By: #### C BC, CMP, GFR, DIFF, MORPH #### [place] [address] CBCon 08-24-2019 Erythrocyte distribution width (RBC) [Ratio] 14.2 % Normal 11.5-15.5 [facility] ([place] Comment on above: Performed By: #### C BC, CMP, GFR, DIFF, MORPH #### [place] [address] Hematocrit (Bld) [Volume fraction] 28.9 % Low 34.0-46.0 [facility] [place] Comment on above: Performed By: #### C BC, CMP, GFR, DIFF, MORPH #### [place] [address] Hemoglobin (Bld) [Mass/Vol] 9.8 G/dL Low 12.0-16.0 [facility] ([place] Comment on above: Performed By: #### C BC, CMP, GFR, DIFF, MORPH #### [place] [id number] MCH (RBC) [Entitic mass] 33.7 pg High 27.0-33.0 [facility] ([place] Comment on above: Performed By: #### C BC, CMP, GFR, DIFF, MORPH #### [address] [address] MCHC (RBC) [Mass/Vol] 33.8 G/dL Normal 32.0-36.0 [facility] ([place] Comment on above: Performed By: #### C BC, CMP, GFR, DIFF, MORPH #### [place] [id number] MCV (RBC) [Entitic vol] 99.7 fL High 80.0-99.0 [facility] ([place] Comment on above: Performed By: #### C BC, CMP, GFR, DIFF, MORPH #### [address] [address] Platelet mean volume (Bld) [Entitic vol] 8.5 fL Normal 6.6-10.5 [facility] [place] Comment on above: Performed By: #### C BC, CMP, GFR, DIFF, MORPH #### [place] [id number] Platelets (Bld) [#/Vol] 201 10 3/mcL Normal 150-450 [facility] [place] Comment on above: Performed By: #### C BC, CMP, GFR, DIFF, MORPH #### [place] [id number] RBC (Bld) [#/Vol] 2.90 10 6/mcL Low 4.10-5.30 [facility] [place] Comment on above: Performed By: #### C BC, CMP, GFR, DIFF, MORPH #### [place] [id number] WBC (Bld) [#/Vol] 23.10 10 3/mcL High 4.50-10.80 [facility] ([place] Comment on above: Performed By: #### C BC, CMP, GFR, DIFF, MORPH #### [place] [id number] [facility] 08-[facility] CK [Catalytic activity/Vol] 71 U/L Normal 7-185 [facility] ([place] Comment on above: Performed By: #### C BC, CMP, GFR, DIFF, MORPH #### [address] [address] CMPon 08-24-2019 Albumin/Globulin [Mass ratio] 1.0 {ratio} Normal 0.9-1.6 [facility] [place] Comment on above: Performed By: #### C BC, CMP, GFR, DIFF, MORPH #### [address] [address] ALP [Catalytic activity/Vol] 77 U/L Normal 38-126 [facility] ([place] Comment on above: Performed By: #### C BC, CMP, GFR, DIFF, MORPH #### [address] [address] Bili Total 1.1 mg/dL Normal 0.2-1.2 [facility] ([place] Comment on above: Result Comment: Use of this assay is not recommended for patients undergoing treatment with eltrombopag due to the potential for falsely elevated results. Performed By: #### C BC, CMP, GFR, DIFF, MORPH #### [place] [id number] Creatinine [Mass/Vol] 0.48 mg/dL Low 0.50-1.20 [facility] ([place] Comment on above: Performed By: #### C BC, CMP, GFR, DIFF, MORPH #### [address] [address] Globulin (S) [Mass/Vol] 3.0 G/dL Normal 1.5-3.8 [facility] ([place] Comment on above: Performed By: #### C BC, CMP, GFR, DIFF, MORPH #### [address] [address] Protein [Mass/Vol] 5.9 G/dL Low 6.0-8.5 [facility] ([place] Comment on above: Performed By: #### C BC, CMP, GFR, DIFF, MORPH #### [address] [address] Urea nitrogen/Creatinine [Mass ratio] 41.7 ratio High 10.0-22.0 [facility] ([place] Comment on above: Performed By: #### C BC, CMP, GFR, DIFF, MORPH #### [address] [address] Albumin [Mass/Vol] 2.9 G/dL Low 3.2-4.8 [facility] [place] Comment on above: Performed By: #### C BC, CMP, GFR, DIFF, MORPH #### [address] [address] ALT [Catalytic activity/Vol] 48 U/L Normal 10-49 [facility] ([place] Comment on above: Performed By: #### C BC, CMP, GFR, DIFF, MORPH #### [address] [address] AST [Catalytic activity/Vol] 27 U/L Normal 8-34 [facility] ([place] Comment on above: Performed By: #### C BC, CMP, GFR, DIFF, MORPH #### [address] [address] Calcium [Mass/Vol] 7.3 mg/dL Low 8.4-10.1 [facility] [place] Comment on above: Performed By: #### C BC, CMP, GFR, DIFF, MORPH #### [address] [address] Chloride [Moles/Vol] 94 mmol/L Low 98-110 [facility] [place] Comment [place] above: Performed By: #### C BC, CMP, GFR, DIFF, MORPH #### [address] [address] CO2 [Moles/Vol] 28 mmol/L Normal 22-32 [facility] ([place] Comment on above: Performed By: #### C BC, CMP, GFR, DIFF, MORPH #### [address] [address] Electrolyte Balance 10.0 mEq/L Normal 4.0-15.0 [facility] ([place] Comment on above: Performed By: #### C BC, CMP, GFR, DIFF, MORPH #### [address] [address] Glucose [Mass/Vol] 100 mg/dL Normal 82-115 [facility] [place] Comment on above: Performed By: #### C BC, CMP, GFR, DIFF, MORPH #### [place] [address] Potassium [Moles/Vol] 2.8 mmol/L Low 3.5-5.0 [facility] ([place] Comment on above: Performed By: #### C BC, CMP, GFR, DIFF, MORPH #### [place] [address] Sodium [Moles/Vol] 132 mmol/L Low 136-145 [facility] [place] Comment on above: Performed By: #### C BC, CMP, GFR, DIFF, MORPH #### [place] [address] Urea nitrogen [Mass/Vol] 20.0 mg/dL Normal 8.0-22.0 [facility] ([place] Comment on above: Performed By: #### C BC, CMP, GFR, DIFF, MORPH #### [place] [address] CRPon 08-24-2019 CRP [Mass/Vol] 32.20 mg/dL High <=0.80 [facility] ([place] Comment on above: Performed By: #### C BC, CMP, GFR, DIFF, MORPH #### [place] [address] CT HEAD OR BRAIN W/O CONTRAS Ton 08-24-2019 CT HEAD OR BRAIN W/O CONTRAST ORIGINAL CT HEAD OR BRAIN W/O CONTRAST CLINICAL STATEMENT: SDH. . Patient fell and hit back of head. Subdural hemorrhage. Patient transferred from [facility]. TECHNIQUE: Axial CT images from skull [...] Date: 08/24/2019 9:25:31 AM Ordering Provider:[address] [facility] ([place]) DIMERon 08-24-2019 Fibrin D-dimer FEU IA (Bld) [Mass/Vol] 1800 ng/mL D-DU High 0-230 [facility] ([place] Comment on above: Result Comment: Resu lts [...] C BC, CMP, GFR, DIFF, MORPH #### [address] [address] Trixie 08-24-2019 Ferritin [Mass/Vol] 236 ng/mL Normal 8-252 [facility] ([place] Comment on above: Performed By: #### C BC, CMP, GFR, DIFF, MORPH #### [address] [address] FIBon 08-24-2019 Fibrinogen 482 mg/dL Normal 250-550 [facility] [place] Comment on above: Performed By: #### C BC, CMP, GFR, DIFF, MORPH #### [address] [address] LIPon 08-24-2019 Lipase Level 312 U/L Normal 73-393 [facility] ([place] Comment on above: Performed By: #### C BC, CMP, GFR, DIFF, MORPH #### [place] [address] MGon 08-24-2019 Magnesium [Mass/Vol] 1.9 mg/dL Normal 1.6-2.4 [facility] [place] Comment [place] above: Performed By: #### C BC, CMP, GFR, DIFF, MORPH #### [place] [address] PBNPon 08-24-2019 Natriuretic peptide B (Bld) [Mass/Vol] 369 pg/mL Normal 0-900 [facility] ([place] Comment on above: Result Comment: NT-p roBNP results of less than 300 pg/mL effectively rules out acute congestive heart failure with 99% negative predictive value. Performed By: #### C BC, CMP, GFR, DIFF, MORPH #### [place] [address] PHOSon 08-24-2019 Phosphate [Mass/Vol] 2.2 mg/dL Low 2.5-4.5 [facility] [place] Comment [place] above: Performed By: #### C BC, CMP, GFR, DIFF, MORPH #### [place] [address] Phosphate [Mass/Vol] 2.0 mg/dL Low 2.5-4.5 [facility] [place] Comment [place] above: Performed By: #### C BC, CMP, GFR, DIFF, MORPH #### [place] [address] PROon 08-24-2019 INR Coag (PPP) [Relative time] 1.2 {INR} Normal [facility] ([place] Comment on above: Result Comment: [employer] (CHEST, 1992, 102:312S-25S) recommended therapeutic range for oral anticoagulant therapy is: LOW RISK: Prophylaxis of venous thrombosis INR: 2.0-3.0 Treatment of pulmonary embolism 2.0-3.0 Prevention of systemic embolism 2.0-3.0 HIGH RISK: Mechanical prosthetic valves 2.5-3.5 Performed By: #### C BC, CMP, GFR, DIFF, MORPH #### [address] [address] PT Coag (PPP) [Time] 13.8 s Normal 9.0-14.6 [facility] [place] Comment [place] above: Result Comment: Effe ctive 11/04/07, Protime results may be affected by some antibiotics (i.e. Ciprofloxacin, Azithromycin, Bactrim) which may potentiate the action of oral anticoagulants, with further increases in Protime/INR. Performed By: #### C BC, CMP, GFR, DIFF, MORPH #### [address] [address] TRIGon 08-24-2019 Triglyceride [Mass/Vol] 71 mg/dL Normal 3-149 [facility] ([place] Comment on above: Result Comment: Trig lyceride Reference Interval: Less than 150 Normal 150-199 Borderline high risk 200-499 High risk 500 or higher Very high risk Performed By: #### C BC, CMP, GFR, DIFF, MORPH #### [address] [address] Triglyceride [Mass/Vol] 74 mg/dL Normal 3-149 [facility] ([place] Comment on above: Result Comment: Trig lyceride Reference Interval: Less than 150 Normal 150-199 Borderline high risk 200-499 High risk 500 or higher Very high risk Performed By: #### C BC, CMP, GFR, DIFF, MORPH #### [place] [id number] TROPIon 08-24-2019 Troponin I.cardiac [Mass/Vol] ng/mL Normal 0.000-0.040 [facility] ([place] Comment on above: Result Comment: Trop onin I reference ranges (12/28/13): 0.00-0.040 ng/mL Negative and non-diagnostic. >0.040 ng/mL Consistent with cardiac damage, increased clinical risk and possibility of myocardial infarction. Serial measurements, a rise & fall in test results, clinical history, appropriate symptoms and/or ECG changes may help assess possibility of CO. *Other non-acute coronary syndrome conditions such as CHF, myocarditis, pulmonary emboli, sepsis and cardiac surgery could result in myocardial damage and increased troponin levels. Performed By: #### C BC, CMP, GFR, DIFF, MORPH #### [address] [address] .GFRon 08-23-2019 GFR Non- >60 Normal [facility] ([place] Comment on above: Result Comment: GFR Population [...] C BC, CMP, GFR, DIFF, MORPH #### [address] [address] GFR >60 Normal [facility] [place] Comment on above: Result Comment: GFR Population [...] C BC, CMP, GFR, DIFF, MORPH #### [address] [address] .Manual Diffon 08-23-2019 Bands 2.0 % Normal 0.0-5.0 [facility] ([place] Comment on above: Performed By: #### C BC, CMP, GFR, DIFF, MORPH #### [address] [address] Basophil %, Manual 0.0 % Normal 0.0-2.5 [facility] [place] Comment on above: Performed By: #### C BC, CMP, GFR, DIFF, MORPH #### [address] [address] Basophil, Abs Manual 0.00 10 3/mcL Normal 0.00-0.27 [facility] ([place] Comment on above: Performed By: #### C BC, CMP, GFR, DIFF, MORPH #### [address] [address] Cells Counted 100 Normal [facility] ([place] Comment on above: Performed By: #### C BC, CMP, GFR, DIFF, MORPH #### [address] [address] Eosinophil %, Manual 0.0 % Normal 0.0-6.0 [facility] [place] Comment on above: Performed By: #### C BC, CMP, GFR, DIFF, MORPH #### [address] [address] Eosinophil, Abs Manual 0.00 10 3/mcL Normal 0.00-0.65 [facility] [place] Comment on above: Performed By: #### C BC, CMP, GFR, DIFF, MORPH #### [address] [address] Lymphocyte %, Manual 9.0 % Low 20.0-40.0 [facility] [place] Comment [place] above: Performed By: #### C BC, CMP, GFR, DIFF, MORPH #### [address] [address] Lymphocyte, Abs Manual 2.18 10 3/mcL Normal 0.90-4.32 [facility] [place] Comment on above: Performed By: #### C BC, CMP, GFR, DIFF, MORPH #### [address] [address] Monocyte %, Manual 5.0 % Normal 2.0-13.0 [facility] [place] Comment on above: Performed By: #### C BC, CMP, GFR, DIFF, MORPH #### [place] [address] Monocyte, Abs Manual 1.21 10 3/mcL Normal 0.09-1.40 [facility] ([place] Comment on above: Performed By: #### C BC, CMP, GFR, DIFF, MORPH #### [place] [address] Neutrophil %, Manual 84.0 % High 50.0-75.0 [facility] [place] Comment on above: Performed By: #### C BC, CMP, GFR, DIFF, MORPH #### [place] [address] Neutrophil, Abs Manual 18.41 10 3/mcL High 2.25-8.10 [facility] ([place] Comment on above: Performed By: #### C BC, CMP, GFR, DIFF, MORPH #### [place] [address] .Morphon 08-23-2019 Platelets (Bld) [#/Vol] Normal Normal [facility] ([place] Comment on above: Performed By: #### C BC, CMP, GFR, DIFF, MORPH #### [place] [address] RBC morphology finding Nom (Bld) Normal Normal [facility] [place] Comment on above: Performed By: #### C BC, CMP, GFR, DIFF, MORPH #### [place] [address] Benji 08-23-2019 Ethanol Level <10.0 Normal [facility] [place] Comment on above: Performed By: #### C BC, CMP, GFR, DIFF, MORPH #### [place] [address] APTTon 08-23-2019 aPTT Coag (Bld) [Time] None Normal [facility] ([place] Comment [place] above: Performed By: #### A PTT, PRO #### [place] [address] aPTT Coag (Bld) [Time] 23.8 s Low 25.0-35.0 [facility] ([place] Comment on above: Result Comment: For Heparin anticoagulation therapy, the recommended therapeutic range is: 54-77 seconds (APTT Correlation with Anti-Xa therapeutic range of 0.3-0.7 units/ml). PLEASE REFERENCE THE PHARMACY PROTOCOL FOR DOSING. Performed By: #### A PTT, PRO #### [place] [address] CBCon 08-23-2019 Erythrocyte distribution width (RBC) [Ratio] 14.0 % Normal 11.5-15.5 [facility] [place] Comment on above: Performed By: #### C BC, CMP, GFR, DIFF, MORPH #### [place] [address] Hematocrit (Bld) [Volume fraction] 29.7 % Low 34.0-46.0 [facility] [place] Comment on above: Performed By: #### C BC, CMP, GFR, DIFF, MORPH #### [place] [id number] Hemoglobin (Bld) [Mass/Vol] 10.3 G/dL Low 12.0-16.0 [facility] [place] Comment on above: Performed By: #### C BC, CMP, GFR, DIFF, MORPH #### [place] [id number] MCH (RBC) [Entitic mass] 33.9 pg High 27.0-33.0 [facility] [place] Comment on above: Performed By: #### C BC, CMP, GFR, DIFF, MORPH #### [place] [id number] MCHC (RBC) [Mass/Vol] 34.7 G/dL Normal 32.0-36.0 [facility] ([place] Comment on above: Performed By: #### C BC, CMP, GFR, DIFF, MORPH #### [place] [id number] MCV (RBC) [Entitic vol] 97.7 fL Normal 80.0-99.0 [facility] ([place] Comment on above: Performed By: #### C BC, CMP, GFR, DIFF, MORPH #### [place] [address] Platelet mean volume (Bld) [Entitic vol] 8.0 fL Normal 6.6-10.5 [facility] [place] Comment on above: Performed By: #### C BC, CMP, GFR, DIFF, MORPH #### [place] [id number] Platelets (Bld) [#/Vol] 193 10 3/mcL Normal 150-450 [facility] [place] Comment on above: Performed By: #### C BC, CMP, GFR, DIFF, MORPH #### [place] [phone] RBC (Bld) [#/Vol] 3.04 10 6/mcL Low 4.10-5.30 [facility] [place] Comment [place] above: Performed By: #### C BC, CMP, GFR, DIFF, MORPH #### [place] [address] WBC (Bld) [#/Vol] 24.20 10 3/mcL High 4.50-10.80 [facility] ([place] Comment on above: Performed By: #### C BC, CMP, GFR, DIFF, MORPH #### [place] [address] CMPon 08-23-2019 Albumin/Globulin [Mass ratio] 0.9 {ratio} Normal 0.9-1.6 [facility] [place] Comment on above: Performed By: #### C BC, CMP, GFR, DIFF, MORPH #### [place] [address] ALP [Catalytic activity/Vol] 71 U/L Normal 38-126 [facility] [place] Comment on above: Performed By: #### C BC, CMP, GFR, DIFF, MORPH #### [place] [address] Bili Total 1.7 mg/dL High 0.2-1.2 [facility] ([place] Comment on above: Result Comment: Use of this assay is not recommended for patients undergoing treatment with eltrombopag due to the potential for falsely elevated results. Performed By: #### C BC, CMP, GFR, DIFF, MORPH #### [address] [address] Creatinine [Mass/Vol] 0.40 mg/dL Low 0.50-1.20 [facility] ([place] Comment on above: Performed By: #### C BC, CMP, GFR, DIFF, MORPH #### [address] [address] Globulin (S) [Mass/Vol] 3.5 G/dL Normal 1.5-3.8 [facility] ([place] Comment on above: Performed By: #### C BC, CMP, GFR, DIFF, MORPH #### [address] [address] Glucose [Mass/Vol] 120 mg/dL High 82-115 [facility] [place] Comment on above: Performed By: #### C BC, CMP, GFR, DIFF, MORPH #### [address] [address] Protein [Mass/Vol] 6.8 G/dL Normal 6.0-8.5 [facility] [place] Comment on above: Performed By: #### C BC, CMP, GFR, DIFF, MORPH #### [address] [address] Urea nitrogen/Creatinine [Mass ratio] 57.5 ratio High 10.0-22.0 [facility] ([place] Comment on above: Performed By: #### C BC, CMP, GFR, DIFF, MORPH #### [address] [address] Albumin [Mass/Vol] 3.3 G/dL Normal 3.2-4.8 [facility] [place] Comment on above: Performed By: #### C BC, CMP, GFR, DIFF, MORPH #### [address] [address] ALT [Catalytic activity/Vol] 61 U/L High 10-49 [facility] ([place] Comment on above: Performed By: #### C BC, CMP, GFR, DIFF, MORPH #### [address] [address] AST [Catalytic activity/Vol] 41 U/L High 8-34 [facility] ([place] Comment on above: Performed By: #### C BC, CMP, GFR, DIFF, MORPH #### [address] [address] Calcium [Mass/Vol] 7.4 mg/dL Low 8.4-10.1 [facility] [place] Comment on above: Performed By: #### C BC, CMP, GFR, DIFF, MORPH #### [address] [address] Chloride [Moles/Vol] 94 mmol/L Low 98-110 [facility] [place] Comment on above: Performed By: #### C BC, CMP, GFR, DIFF, MORPH #### [address] [address] CO2 [Moles/Vol] 27 mmol/L Normal 22-32 [facility] ([place] Comment on above: Performed By: #### C BC, CMP, GFR, DIFF, MORPH #### [address] [address] Electrolyte Balance 9.0 mEq/L Normal 4.0-15.0 [facility] [place] Comment on above: Performed By: #### C BC, CMP, GFR, DIFF, MORPH #### [address] [address] Potassium [Moles/Vol] 2.9 mmol/L Low 3.5-5.0 [facility] ([place] Comment on above: Performed By: #### C BC, CMP, GFR, DIFF, MORPH #### [address] [address] Sodium [Moles/Vol] 130 mmol/L Low 136-145 [facility] [place] Comment on above: Performed By: #### C BC, CMP, GFR, DIFF, MORPH #### [address] [address] Urea nitrogen [Mass/Vol] 23.0 mg/dL High 8.0-22.0 [facility] [place] Comment on above: Performed By: #### C BC, CMP, GFR, DIFF, MORPH #### [address] [address] [address] ABD/PELVIS W/ IV CONTRAST ONLYon 08-23-2019 [...] PM Sign Date: 08/23/2019 7:20:52 PM Ordering Provider:[facility]) CT THORAX W/ CONTRASTon 05-0 [...] PM Sign Date: 08/23/2019 7:09:11 PM Ordering Provider:[facility] [place] LIPon 08-23-2019 Lipase Level 1226 U/L High 73-393 [facility]) Comment on above: Performed By: #### C BC, CMP, GFR, DIFF, MORPH #### [address] [address] PROon 08-23-2019 INR Coag (PPP) [Relative time] 1.2 {INR} Normal [facility] ([place] Comment on above: Result Comment: [employer] (CHEST, 1991, 102:312S-25S) recommended therapeutic range for oral anticoagulant therapy is: LOW RISK: Prophylaxis of venous thrombosis INR: 2.0-3.0 Treatment of pulmonary embolism 2.0-3.0 Prevention of systemic embolism 2.0-3.0 HIGH RISK: Mechanical prosthetic valves 2.5-3.5 Performed By: #### C BC, CMP, GFR, DIFF, MORPH #### [place] [address] PT Coag (PPP) [Time] 14.5 s Normal 9.0-14.6 [facility] [place] Comment on above: Result Comment: Effe ctive 11/04/07, Protime results may be affected by some antibiotics (i.e. Ciprofloxacin, Azithromycin, Bactrim) which may potentiate the action of oral anticoagulants, with further increase in Protime/INR. Performed By: #### C BC, CMP, GFR, DIFF, MORPH #### [place] [address] RESPIDon 08-23-2019 Adenovirus Not Detected Normal Not Detected [facility] ([place]) Comment on above: Order Comment: Order added by [email or web address] Performed By: #### C BC, CMP, GFR, DIFF, MORPH #### [place] [address] Bordetella Parapertussis Not Detected Normal Not Detected [facility] ([place] Comment on above: Order Comment: Order added by [email or web address] Performed By: #### C BC, CMP, GFR, DIFF, MORPH #### [place] [address] Bordetella Pertussis Not Detected Normal Not Detected [facility] ([place] Comment on above: Order Comment: Order added by [email or web address] Performed By: #### C BC, CMP, GFR, DIFF, MORPH #### [place] [address] Chlamydophila pneumoniae Not Detected Normal Not Detected [facility] ([place]) Comment on above: Order Comment: Order added by [email or web address] Performed By: #### C BC, CMP, GFR, DIFF, MORPH #### [place] [address] Coronavirus 229E (Not COVID-19) Not Detected Normal Not Detected [facility] ([place]) Comment on above: Order Comment: Order added by [email or web address] Performed By: #### C BC, CMP, GFR, DIFF, MORPH #### [place] [address] Coronavirus HKU1 (Not COVID-19) Not Detected Normal Not Detected [facility] ([place]) Comment on above: Order Comment: Order added by [email or web address] Performed By: #### C BC, CMP, GFR, DIFF, MORPH #### [place] [address] Coronavirus NL63 (Not COVID-19) Not Detected Normal Not Detected [facility] ([place]) Comment on above: Order Comment: Order added by [email or web address] Performed By: #### C BC, CMP, GFR, DIFF, MORPH #### [place] [address] Coronavirus OC43 (Not COVID-19) Not Detected Normal Not Detected [facility] ([place]) Comment on above: Order Comment: Order added by [email or web address] Performed By: #### C BC, CMP, GFR, DIFF, MORPH #### [place] [address] Human Metapneumovirus Not Detected Normal Not Detected [facility] ([place] Comment on above: Order Comment: Order added by [email or web address] Performed By: #### C BC, CMP, GFR, DIFF, MORPH #### [place] [address] Influenza A Not Detected Normal Not Detected [facility] ([place] Comment on above: Order Comment: Order added by [email or web address] Performed By: #### C BC, CMP, GFR, DIFF, MORPH #### [place] [id number] Influenza B Not Detected Normal Not Detected [facility] ([place] Comment on above: Order Comment: Order added by [email or web address] Performed By: #### C BC, CMP, GFR, DIFF, MORPH #### [place] [address] Mycoplasma pneumoniae Not Detected Normal Not Detected [facility] ([place] Comment on above: Order Comment: Order added by [email or web address] Performed By: #### C BC, CMP, GFR, DIFF, MORPH #### [place] [address] Parainfluenza 1 Not Detected Normal Not Detected [facility] ([place] Comment on above: Order Comment: Order added by [email or web address] Performed By: #### C BC, CMP, GFR, DIFF, MORPH #### [place] [address] Parainfluenza 2 Not Detected Normal Not Detected [facility] ([place] Comment on above: Order Comment: Order added by [email or web address] Performed By: #### C BC, CMP, GFR, DIFF, MORPH #### [place] [address] Parainfluenza 3 Not Detected Normal Not Detected [facility] ([place] Comment on above: Order Comment: Order added by [email or web address] Performed By: #### C BC, CMP, GFR, DIFF, MORPH #### [place] [id number] Parainfluenza 4 Not Detected Normal Not Detected [facility] ([place] Comment on above: Order Comment: Order added by [email or web address] Performed By: #### C BC, CMP, GFR, DIFF, MORPH #### [address] [id number] Respiratory Syncytial Virus Not Detected Normal Not Detected [facility] ([place] Comment on above: Order Comment: Order added by [email or web address] Performed By: #### C BC, CMP, GFR, DIFF, MORPH #### [address] [address] Rhinovirus/Enterovirus Not Detected Normal Not Detected [facility] ([place] Comment on above: Order Comment: Order added by [email or web address] Performed By: #### C BC, CMP, GFR, DIFF, MORPH #### [place] [address] RFLUon 08-23-2019 RFLU . MICRO - Microbiology [...] Locations *1: This test was performed at: [facility], [address] [place] [address], [address] [place] [address] ([place] Comment on above: Performed By: #### C BC, CMP, GFR, DIFF, MORPH #### [address] [address] XR CHEST 1 VIEWon 08-23-2019 XR CHEST [...] PM Sign Date: 08/23/2019 7:23:50 PM Ordering Provider:[facility]) XR PELVIS 1 OR 2 [...] PM Sign Date: 08/23/2019 7:24:38 PM Ordering Provider:[facility] ([place]) Culture, urine Bacteria identified Cx Nom (U) Staphylococcus hominis hominis [facility] Work Phone: Bacteria identified Cx Nom (U) Escherichia coli [facility] Work Phone: Bacteria identified Cx Nom (U) Enterococcus faecalis [facility] Work Phone: Vital Signs Date Time Vital Sign Value Performing Clinician Facility 09-26-2024 15:33-0400 Body temperature 97.8 [degF] Dr. Erica Richardson DO Work Phone: [facility] 09-26-2024 15:33-0400 Diastolic blood pressure 74 mm[Hg] Dr. Erica Richardson DO Work Phone: [facility] 09-26-2024 15:33-0400 Heart rate 67 /min Dr. Erica Richardson DO Work Phone: [facility] 09-26-2024 15:33-0400 Respiratory rate 15 /min Dr. Erica Richardson DO Work Phone: [facility] 09-26-2024 15:33-0400 SaO2% (BldA) [Mass fraction] 99 % Dr. Erica Richardson DO Work Phone: [facility] 09-26-2024 15:33-0400 Systolic blood pressure 138 mm[Hg] Dr. Erica Richardson DO Work Phone: [facility] 09-26-2024 13:17-0400 Body height 172.[address] Erica Richardson DO Work Phone: [facility] 09-26-2024 13:17-0400 Body mass index (BMI) [Ratio] 25.4 kg/m2 Dr. Erica Richardson DO Work Phone: [facility] 09-26-2024 13:17-0400 Body weight 75.[address] Erica Richardson DO Work Phone: [facility] 09-25-2024 15:00-0400 Body temperature 98.8 [degF] Dr. Erica Richardson DO Work Phone: [facility] 09-25-2024 15:00-0400 Diastolic blood pressure 72 mm[Hg] Dr. Erica Richardson DO Work Phone: [facility] 06-06-2025 15:00-0400 Heart rate 82 /min Dr. Erica Richardson DO Work Phone: [facility] 09-25-2024 15:00-0400 Respiratory rate 16 /min Dr. Erica Richardson DO Work Phone: [facility] 09-25-2024 15:00-0400 SaO2% (BldA) [Mass fraction] 94 % Dr. Erica Richardson DO Work Phone: [facility] 09-25-2024 15:00-0400 Systolic blood pressure 123 mm[Hg] Dr. Erica Richardson DO Work Phone: [facility] 09-25-2024 03:34-0400 Body mass index (BMI) [Ratio] 25.2 kg/m2 Dr. Erica Richardson DO Work Phone: [facility] 09-25-2024 03:34-0400 Body weight 75.[address] Erica Richardson DO Work Phone: [facility] 09-23-2024 09:30-0400 Body height 172.[address] Erica Richardson DO Work Phone: [facility] 09-22-2024 23:00-0400 Body temperature 98.1 [degF] Dr. Erica Richardson DO Work Phone: [facility] 09-22-2024 23:00-0400 Diastolic blood pressure 65 mm[Hg] Dr. Erica Richardson DO Work Phone: [facility] 09-22-2024 23:00-0400 Heart rate 70 /min Dr. Erica Richardson DO Work Phone: [facility] 09-22-2024 23:00-0400 Respiratory rate 16 /min Dr. Erica Richardson DO Work Phone: [facility] 09-22-2024 23:00-0400 SaO2% (BldA) [Mass fraction] 95 % Dr. Erica Richardson DO Work Phone: [facility] 09-22-2024 23:00-0400 Systolic blood pressure 134 mm[Hg] Dr. Erica Richardson DO Work Phone: [facility] 09-22-2024 22:00-0400 Inhaled oxygen flow rate 1 L/min Dr. Erica Richardson DO Work Phone: [facility] 09-22-2024 20:06-0400 Body height 167.[address] Erica Richardson DO Work Phone: [facility] 09-22-2024 20:06-0400 Body mass index (BMI) [Ratio] 28.8 kg/m2 Dr. Erica Richardson DO Work Phone: [facility] 09-22-2024 20:06-0400 Body weight 81.[address] Erica Richardson DO Work Phone: [facility] 07-04-2024 16:37-0400 Diastolic blood pressure 81 mm[Hg] Dr. Erica Richardson DO Work Phone: [facility] 07-04-2024 16:37-0400 Heart rate 77 /min Dr. Erica Richardson DO Work Phone: [facility] 07-04-2024 16:37-0400 Respiratory rate 16 /min Dr. Erica Richardson DO Work Phone: [facility] 07-04-2024 16:37-0400 SaO2% (BldA) [Mass fraction] 96 % Dr. Erica Richardson DO Work Phone: [facility] 07-04-2024 16:37-0400 Systolic blood pressure 167 mm[Hg] Dr. Erica Richardson DO Work Phone: [facility] 07-04-2024 12:57-0400 Body height 167.[address] Erica Richardson DO Work Phone: [facility] 07-04-2024 12:57-0400 Body mass index (BMI) [Ratio] 27.3 kg/m2 Dr. Erica Richardson DO Work Phone: [facility] 07-04-2024 12:57-0400 Body temperature 98 [degF] Dr. Erica Richardson DO Work Phone: [facility] 07-04-2024 12:57-0400 Body weight 76.[address] Erica Richardson DO Work Phone: [facility] 08-20-2023 17:53-0400 Body temperature 98 [degF] Dr. Erica Richardson Work Phone: [facility] 08-20-2023 17:53-0400 Diastolic blood pressure 80 mm[Hg] Dr. Erica Richardson Work Phone: [facility] 08-20-2023 17:53-0400 Heart rate 80 /min Dr. Erica Richardson Work Phone: [facility] 08-20-2023 17:53-0400 Respiratory rate 16 /min Dr. Erica Richardson Work Phone: [facility] 08-20-2023 17:53-0400 SaO2% (BldA) [Mass fraction] 97 % Dr. Erica Richardson Work Phone: [facility] 08-20-2023 17:53-0400 Systolic blood pressure 158 mm[Hg] Dr. Erica Richardson Work Phone: [facility] 08-20-2023 12:24-0400 Body height 165.[address] Erica Richardson Work Phone: [facility] 08-20-2023 12:24-0400 Body mass index (BMI) [Ratio] 27.2 kg/m2 Dr. Erica Richardson Work Phone: [facility] 08-20-2023 12:24-0400 Body weight 74.[address] Erica Richardson Work Phone: [facility] 05-21-2023 11:05-0500 Body temperature 98.4 [degF] Dr. Erica Richardson Work Phone: [facility] 05-21-2023 11:05-0500 Diastolic blood pressure 60 mm[Hg] Dr. Erica Richardson Work Phone: [facility] 05-21-2023 11:05-0500 Heart rate 61 /min Dr. Erica Richardson Work Phone: [facility] 05-21-2023 11:05-0500 Respiratory rate 18 /min Dr. Erica Richardson Work Phone: [facility] 05-21-2023 11:05-0500 SaO2% (BldA) [Mass fraction] 94 % Dr. Erica Richardson Work Phone: [facility] 05-21-2023 11:05-0500 Systolic blood pressure 125 mm[Hg] Dr. Erica Richardson Work Phone: [facility] 05-21-2023 06:00-0500 Body mass index (BMI) [Ratio] 26.6 kg/m2 Dr. Erica Richardson Work Phone: [facility] 05-21-2023 06:00-0500 Body weight 74.[address] Erica Richardson Work Phone: [facility] 05-19-2023 09:16-0500 Inhaled oxygen concentration 2 % Dr. Erica Richardson Work Phone: [facility] 05-19-2023 08:00-0500 Inhaled oxygen flow rate 2 L/min Dr. Erica Richardson Work Phone: [facility] 05-19-2023 03:16-0500 Body height 167.[address] Erica Richardson Work Phone: [facility] 05-19-2023 02:23-0500 Body temperature 98.7 [degF] Dr. Erica Richardson Work Phone: [facility] 05-19-2023 02:23-0500 Diastolic blood pressure 57 mm[Hg] Dr. Erica Richardson Work Phone: [facility] 05-19-2023 02:23-0500 Heart rate 87 /min Dr. Erica Richardson Work Phone: [facility] 05-19-2023 02:23-0500 Respiratory rate 16 /min Dr. Erica Richadrson Work Phone: [facility] 05-19-2023 02:23-0500 SaO2% (BldA) [Mass fraction] 95 % Dr. Erica Richardson Work Phone: [facility] 05-19-2023 02:23-0500 Systolic blood pressure 99 mm[Hg] Dr. Erica Richardson Work Phone: [facility] 05-19-2023 01:17-0500 Inhaled oxygen flow rate 3 L/min Dr. Erica Richardson Work Phone: [facility] 05-18-2023 23:28-0500 Body height 167.[address] Erica Richardson Work Phone: [facility] 05-18-2023 23:28-0500 Body mass index (BMI) [Ratio] 25.9 kg/m2 Dr. Erica Richardson Work Phone: [facility] 05-18-2023 23:28-0500 Body weight [address] Erica Richardson Work Phone: [facility] 11-23-2022 13:00-0400 Body temperature 97.8 [degF] Dr. Erica Richardson Work Phone: [facility] 11-23-2022 13:00-0400 Diastolic blood pressure 70 mm[Hg] Dr. Erica Richardson Work Phone: [facility] 11-23-2022 13:00-0400 Heart rate 98 /min Dr. Erica Richardson Work Phone: [facility] 11-23-2022 13:00-0400 Respiratory rate 16 /min Dr. Erica Richardson Work Phone: [facility] 11-23-2022 13:00-0400 SaO2% (BldA) [Mass fraction] 94 % Dr. Erica Richardson Work Phone: [facility] 11-23-2022 13:00-0400 Systolic blood pressure 139 mm[Hg] Dr. Erica Richardson Work Phone: [facility] 11-23-2022 06:51-0400 Inhaled oxygen flow rate 2 L/min Dr. Erica Richardson Work Phone: [facility] 11-22-2022 18:25-0400 Body height 167.[address] Erica Richardson Work Phone: [facility] 11-22-2022 18:25-0400 Body mass index (BMI) [Ratio] 24.2 kg/m2 Dr. Erica Richardson Work Phone: [facility] 11-22-2022 18:25-0400 Body weight 68.[address] Erica Richardson Work Phone: [facility] 11-22-2022 17:49-0400 Body temperature 98 [degF] [facility] 11-22-2022 17:49-0400 Diastolic blood pressure 79 mm[Hg] [facility] 11-22-2022 17:49-0400 Heart rate 72 /min [facility] 11-22-2022 17:49-0400 Respiratory rate 18 /min [facility] 11-22-2022 17:49-0400 SaO2% (BldA) [Mass fraction] 93 % [facility] 11-22-2022 17:49-0400 Systolic blood pressure 151 mm[Hg] [facility] 11-22-2022 12:42-0400 Body height 167.64 cm [facility] 11-22-2022 12:42-0400 Body mass index (BMI) [Ratio] 24.2 kg/m2 [facility] 11-22-2022 12:42-0400 Body weight 68.03 kg [facility] 11-22-2022 11:47-0400 Body temperature 99.61 [degF] [facility] [employer] Work Phone: [facility] 11-22-2022 11:47-0400 Body weight 68.04 [facility] [employer] [facility] [employer] Work Phone: [facility] 11-22-2022 11:47-0400 Diastolic blood pressure 64 mm[Hg] [facility] [employer] Work Phone: [facility] 11-22-2022 11:47-0400 Heart rate 85 /min [facility] [employer] Work Phone: [facility] 11-22-2022 11:47-0400 Respiratory rate 18 /min [facility] [employer] Work Phone: [facility] 11-22-2022 11:47-0400 SaO2% (BldA) [Mass fraction] 93 % [facility] [employer] Work Phone: [facility] 11-22-2022 11:47-0400 Systolic blood pressure 110 mm[Hg] [facility] [employer] Work Phone: [facility] 07-02-2022 21:05-0400 Diastolic blood pressure 80 mm[Hg] Dr. Erica Richardson Work Phone: [facility] 07-02-2022 21:05-0400 Heart rate 79 /min Dr. Erica Richardson Work Phone: [facility] 07-02-2022 21:05-0400 Respiratory rate 16 /min Dr. Erica Richardson Work Phone: [facility] 07-02-2022 21:05-0400 SaO2% (BldA) [Mass fraction] 97 % Dr. Erica Richardson Work Phone: [facility] 07-02-2022 21:05-0400 Systolic blood pressure 130 mm[Hg] Dr. Erica Richardson Work Phone: [facility] 07-02-2022 16:14-0400 Body height 167.[address] Erica Richardson Work Phone: [facility] 07-02-2022 16:14-0400 Body mass index (BMI) [Ratio] 21.7 kg/m2 Dr. Erica Richardson Work Phone: [facility] 07-02-2022 16:14-0400 Body temperature 97.3 [degF] Dr. Erica Richardson Work Phone: [facility] 07-02-2022 16:14-0400 Body weight 61.[address] Erica Richardson Work Phone: [facility] 03-09-2022 08:51-0500 Body height 167.[address] Erica Richardson Work Phone: [facility] 01-10-2022 13:39-0400 Diastolic blood pressure 81 mm[Hg] Dr. Erica Richardson Work Phone: [facility] Work Phone: 01-10-2022 13:39-0400 Heart rate 83 /min Dr. Erica Richardson Work Phone: [facility] Work Phone: 01-10-2022 13:39-0400 Respiratory rate 19 /min Dr. Erica Richardson Work Phone: [facility] Work Phone: 01-10-2022 13:39-0400 SaO2% (BldA) [Mass fraction] 95 % Dr. Erica Richardson Work Phone: [facility] Work Phone: 01-10-2022 13:39-0400 Systolic blood pressure 149 mm[Hg] Dr. Erica Richardson Work Phone: [facility] Work Phone: 01-10-2022 11:44-0400 Body height 167.[address] Erica Richardson Work Phone: [facility] Work Phone: 01-10-2022 11:44-0400 Body mass index (BMI) [Ratio] 22.7 kg/m2 Dr. Erica Richardson Work Phone: [facility] Work Phone: 01-10-2022 11:44-0400 Body temperature 98.1 [degF] Dr. Erica Richardson Work Phone: [facility] Work Phone: 01-10-2022 11:44-0400 Body weight 63.[address] Erica Richardson Work Phone: [facility] Work Phone: 01-09-2022 13:26-0400 Body height 167.6 cm All Tsang MD Work Phone: [facility] 01-09-2022 13:26-0400 Body weight 56.7 kg All Tsang MD Work Phone: [facility] 01-09-2022 13:26-0400 Diastolic blood pressure 64 mm[Hg] All Tsang MD Work Phone: [facility] 01-09-2022 13:26-0400 Heart rate 66 /min All Tsang MD Work Phone: [facility] 01-09-2022 13:26-0400 SaO2% (BldA) [Mass fraction] 97 % All Tsang MD Work Phone: [facility] 01-09-2022 13:26-0400 Systolic blood pressure 110 mm[Hg] All Tsang MD Work Phone: [facility] 11-02-2021 13:06-0400 Body height 167.6 cm Acute 359 Work Phone: [facility] 11-02-2021 13:06-0400 Body weight 63.96 kg [facility] Work Phone: [facility] 11-02-2021 13:06-0400 Diastolic blood pressure 74 mm[Hg] [facility] Work Phone: [facility] 11-02-2021 13:06-0400 Heart rate 86 /min [facility] Work Phone: [facility] 11-02-2021 13:06-0400 Respiratory rate 20 /min [facility] Work Phone: [facility] 11-02-2021 13:06-0400 SaO2% (BldA) [Mass fraction] 95 % [facility] Work Phone: [facility] 11-02-2021 13:06-0400 Systolic blood pressure 112 mm[Hg] [facility] Work Phone: [facility] 10-07-2021 01:00-0400 Diastolic blood pressure 81 mm[Hg] Dr. Erica Richardson Work Phone: [facility] Work Phone: 10-07-2021 01:00-0400 Heart rate 85 /min Dr. Erica Richardson Work Phone: [facility] Work Phone: 10-07-2021 01:00-0400 Inhaled oxygen flow rate 2 L/min Dr. Erica Richardson Work Phone: [facility] Work Phone: 10-07-2021 01:00-0400 Respiratory rate 14 /min Dr. Erica Richardson Work Phone: [facility] Work Phone: 10-07-2021 01:00-0400 SaO2% (BldA) [Mass fraction] 100 % Dr. Erica Richardson Work Phone: [facility] Work Phone: 10-07-2021 01:00-0400 Systolic blood pressure 138 mm[Hg] Dr. Erica Richardson Work Phone: [facility] Work Phone: 10-06-2021 21:19-0400 Body height 167.[address] Erica Richardson Work Phone: [facility] Work Phone: 10-06-2021 21:19-0400 Body mass index (BMI) [Ratio] 20.9 kg/m2 Dr. Erica Richardson Work Phone: [facility] Work Phone: 10-06-2021 21:19-0400 Body temperature 96.9 [degF] Dr. Erica Richardson Work Phone: [facility] Work Phone: 10-06-2021 21:19-0400 Body weight 58.[address] Erica Richardson Work Phone: [facility] Work Phone: 08-07-2021 10:54-0400 Body mass index (BMI) [Ratio] 22.9 kg/m2 Dr. Erica Richardson Work Phone: [facility] Work Phone: 08-07-2021 10:54-0400 Body temperature 97.3 [degF] Dr. Erica Richardson Work Phone: [facility] Work Phone: 08-07-2021 10:54-0400 Body weight 62.[address] Erica Richardson Work Phone: [facility] Work Phone: 08-07-2021 10:54-0400 Diastolic blood pressure 76 mm[Hg] Dr. Erica Richardson Work Phone: [facility] Work Phone: 08-07-2021 10:54-0400 Heart rate 91 /min Dr. Erica Richardson Work Phone: [facility] Work Phone: 08-07-2021 10:54-0400 Respiratory rate 18 /min Dr. Erica Richardson Work Phone: [facility] Work Phone: 08-07-2021 10:54-0400 SaO2% (BldA) [Mass fraction] 97 % Dr. Erica Richardson Work Phone: [facility] Work Phone: 08-07-2021 10:54-0400 Systolic blood pressure 120 mm[Hg] Dr. Erica Richardson Work Phone: [facility] Work Phone: 08-07-2021 10:54-0400 Body height 165.[address] Erica Richardson Work Phone: [facility] Work Phone: 08-07-2021 10:54-0400 Body mass index (BMI) [Ratio] 22.9 kg/m2 Dr. Erica Richardson Work Phone: [facility] Work Phone: 08-07-2021 10:54-0400 Body temperature 97.3 [degF] Dr. Erica Richardson Work Phone: [facility] Work Phone: 08-07-2021 10:54-0400 Body weight 62.[address] Erica Richardson Work Phone: [facility] Work Phone: 08-07-2021 10:54-0400 Diastolic blood pressure 76 mm[Hg] Dr. Erica Richardson Work Phone: [facility] Work Phone: 08-07-2021 10:54-0400 Heart rate 91 /min Dr. Erica Richardson Work Phone: [facility] Work Phone: 08-07-2021 10:54-0400 Respiratory rate 18 /min Dr. Erica Richardson Work Phone: [facility] Work Phone: 08-07-2021 10:54-0400 SaO2% (BldA) [Mass fraction] 97 % Dr. Erica Richardson Work Phone: [facility] Work Phone: 08-07-2021 10:54-0400 Systolic blood pressure 120 mm[Hg] Dr. Erica Richardson Work Phone: [facility] Work Phone: 07-12-2021 11:59-0400 Body temperature 100.29 [degF] Nicho Johnson MD Work Phone: [facility] 07-12-2021 11:59-0400 Body weight 60.6 kg Nicho Johnson MD Work Phone: [facility] 07-12-2021 11:59-0400 Diastolic blood pressure 92 mm[Hg] Nicho Johnson MD Work Phone: [facility] 07-12-2021 11:59-0400 Heart rate 97 /min Nicho Johnson MD Work Phone: [facility] 07-12-2021 11:59-0400 Respiratory rate 21 /min Nicho Johnson MD Work Phone: [facility] 07-12-2021 11:59-0400 SaO2% (BldA) [Mass fraction] 98 % Nicho Johnson MD Work Phone: [facility] 07-12-2021 11:59-0400 Systolic blood pressure 152 mm[Hg] Nicho Johnson MD Work Phone: [facility] 06-11-2021 15:56-0500 Diastolic blood pressure 83 mm[Hg] Dr. Erica Richardson Work Phone: [facility] Work Phone: 06-11-2021 15:56-0500 Heart rate 89 /min Dr. Erica Richardson Work Phone: [facility] Work Phone: 06-11-2021 15:56-0500 Respiratory rate 16 /min Dr. Erica Richardson Work Phone: [facility] Work Phone: 06-11-2021 15:56-0500 SaO2% (BldA) [Mass fraction] 97 % Dr. Erica Richardson Work Phone: [facility] Work Phone: 06-11-2021 15:56-0500 Systolic blood pressure 149 mm[Hg] Dr. Erica Richardson Work Phone: [facility] Work Phone: 06-11-2021 14:56-0500 Diastolic blood pressure 83 mm[Hg] Dr. Erica Richardson Work Phone: [facility] Work Phone: 06-11-2021 14:56-0500 Heart rate 89 /min Dr. Erica Richardson Work Phone: [facility] Work Phone: 06-11-2021 14:56-0500 Respiratory rate 16 /min Dr. Erica Richardson Work Phone: [facility] Work Phone: 06-11-2021 14:56-0500 SaO2% (BldA) [Mass fraction] 97 % Dr. Erica Richardson Work Phone: [facility] Work Phone: 06-11-2021 14:56-0500 Systolic blood pressure 149 mm[Hg] Dr. Erica Richardson Work Phone: [facility] Work Phone: 06-11-2021 11:01-0500 Body mass index (BMI) [Ratio] 23.5 kg/m2 Dr. Erica Richardson Work Phone: [facility] Work Phone: 06-11-2021 11:01-0500 Body temperature 98.3 [degF] Dr. Erica Richardson Work Phone: [facility] Work Phone: 06-11-2021 11:01-0500 Body weight 62.[address] Erica Richardson Work Phone: [facility] Work Phone: 06-11-2021 10:01-0500 Body mass index (BMI) [Ratio] 23.5 kg/m2 Dr. Erica Richardson Work Phone: [facility] Work Phone: 06-11-2021 10:01-0500 Body temperature 98.3 [degF] Dr. Erica Richardson Work Phone: [facility] Work Phone: 06-11-2021 10:01-0500 Body weight 62.[address] Erica Richardson Work Phone: [facility] Work Phone: 05-21-2021 13:39-0500 Body mass index (BMI) [Ratio] 23.7 kg/m2 Dr. Erica Richardson Work Phone: [facility] Work Phone: 05-21-2021 13:39-0500 Body temperature 98 [degF] Dr. Erica Richardson Work Phone: [facility] Work Phone: 05-21-2021 13:39-0500 Body weight 66.[address] Erica Richardson Work Phone: [facility] Work Phone: 05-21-2021 13:39-0500 Diastolic blood pressure 69 mm[Hg] Dr. Erica Richardson Work Phone: [facility] Work Phone: 05-21-2021 13:39-0500 Heart rate 87 /min Dr. Erica Richardson Work Phone: [facility] Work Phone: 05-21-2021 13:39-0500 Respiratory rate 18 /min Dr. Erica Richardson Work Phone: [facility] Work Phone: 05-21-2021 13:39-0500 SaO2% (BldA) [Mass fraction] 100 % Dr. Erica Richardson Work Phone: [facility] Work Phone: 05-21-2021 13:39-0500 Systolic blood pressure 150 mm[Hg] Dr. Erica Richardson Work Phone: [facility] Work Phone: 04-17-2020 11:00-0500 BP Diastolic 91 mm[Hg] [place] 04-17-2020 11:00-0500 BP Systolic 158 mm[Hg] [place] 04-17-2020 11:00-0500 Pulse (Heart Rate) 87 /min [employer] 04-17-2020 11:00-0500 Pulse Oximetry 95 % [place] 04-17-2020 11:00-0500 Respiratory Rate 18 /min [place], [place] 04-17-2020 08:00-0500 Body Temperature 98.4 [degF] [place] Encounters Encounter Date Encounter Type Care Provider Facility Start: 11-16-2024 ambulatory Sheyla Son ty:[facility] Start: 11-13-2024 End: 11-13-[address] Erica Richardson DO Work Phone: -Laboratory Specimen Start: 11-13-2024 End: 11-13-[address] Erica Richardson DO -Laboratory Specimen Work Phone: Start: 11-13-2024 End: 11-13-2024 ambulatory Erica Richardson Facility:[facility] Start: 10-26-2024 ambulatory Sheyla Grier cility:[facility] Start: 10-26-2024 Registered Referred Sheyla Lunsford Start: 10-20-2024 Non-patient / Non-visit Dr. Shireen he MD -[facility] Work Phone: Start: 10-19-2024 ambulatory Franciscodorian SMITH Cherrie cility:[facility] Start: 10-19-2024 Registered Referred Sheyla Lunsford Start: 10-12-2024 End: 10-12-2024 [facility] Start: 10-12-2024 End: 10-12-[address] Erica Richardson DO Work Phone: [facility] Start: 10-12-2024 Registered Referred Sheyla Lunsford Start: 10-05-2024 ambulatory Sheyla Grier cility:[facility] Start: 10-05-2024 Registered Referred Sheyla Lunsford Start: 10-01-2024 End: 10-01-[address] Erica Richardson DO Work Phone: [facility] Start: 10-01-2024 End: 10-01-2024 [facility] Work Phone: Start: 09-30-2024 End: 09-30-[address] Erica Richardson DO Work Phone: [facility] Start: 09-30-2024 End: 09-30-2024 Patient encounter procedure Aiden HUFFMANC -[facility] Work Phone: Start: 09-29-2024 End: 09-29-[address] Erica Richardson DO Work Phone: [facility] Start: 09-29-2024 End: 09-29-[address] Sheyla Mcgee MD -[facility] Work Phone: Start: 09-28-2024 End: 09-28-2024 Patient encounter procedure Aiden LUIS -[facility] Work Phone: Start: 09-28-2024 End: 09-28-[address] Erica Richardson DO Work Phone: [facility] Start: 09-28-2024 Registered Referred Sheyla Mcgee MD -[facility] Start: 09-26-2024 End: 09-26-2024 Emergency department patient visit Dr. Erica Richardson DO Work Phone: -Emergency Department Work Phone: Start: 09-25-2024 Non-patient / Non-visit Dr. Froy anglin [facility] Work Phone: Start: 09-24-2024 Non-patient / Non-visit Dr. Froy anglin [facility] Work Phone: Start: 09-23-2024 Non-patient / Non-visit Dr. Froy anglin [facility] Work Phone: Start: 09-22-2024 ambulatory [facility] Facility :[facility] Start: 09-22-2024 End: 09-25-2024 Evaluation and management of inpatient Dr. Froy Velázquez DO -[facility] Work Phone: Start: 09-11-2024 End: 09-11-[address] Erica Richardson DO Work Phone: [facility] Work Phone: Start: 09-11-2024 End: 09-11-[address] Erica Richardson DO -Laboratory [place] Work Phone: Start: 09-11-2024 End: 09-11-2024 [facility] Start: 08-21-2024 End: 08-21-[address] Erica Richardson DO Work Phone: [facility] Work Phone: Start: 08-21-2024 End: 08-21-[address] Erica Richardson DO -Home Health Lab Start: 08-21-2024 End: 08-21-2024 [facility] Start: 08-05-2024 End: 08-05-[address] Erica Richardson DO -Laboratory, Specimen Work Phone: Start: 08-05-2024 End: 08-05-2024 ambulatory Erica Richardson Facility:[facility] Start: 07-04-2024 End: 07-04-2024 Emergency department patient visit Dr. Erica Richardson DO Work Phone: -Emergency Department Work Phone: Start: 06-04-2024 End: 06-04-[address] Erica Richardson DO -Radiology, [place] Work Phone: Start: 06-04-2024 End: 06-04-2024 ambulatory Erica Richardson Facility:[facility] Start: 05-27-2024 End: 05-27-[address] Erica Richardson DO -Laboratory, [facility] Start: 05-27-2024 End: 05-27-2024 [facility] Start: 04-24-2024 End: 04-24-[address] Erica Richardson DO -Laboratory, Specimen Work Phone: Start: 04-24-2024 End: 04-24-2024 [facility] Start: 03-02-2024 End: 03-02-2024 Emergency department patient visit Cheikh Ybarra Facility:[facility] Start: 12-18-2023 End: 12-18-2023 Emergency department patient visit Jorge Cardona Facility:[facility] Start: 12-12-2023 End: 12-12-2023 ambulatory Erica Richardson Facility:[facility] Start: 11-04-2023 End: 11-04-2023 ambulatory Lab/[facility] Work Phone: Hematology/Oncology Comment on above: History of breast ca ncer (Primary Dx) Start: 08-20-2023 End: 08-20-2023 Emergency department patient visit Dr. Erica Richardson Work Phone: [facility]-Emergency Department Work Phone: Start: 08-05-2023 End: 08-05-2023 ambulatory Lab/[facility] Work Phone: Hematology/Oncology Comment on above: History of breast ca ncer (Primary Dx) Start: 05-21-2023 Non-patient / Non-visit Dr. Anny Richardson Work Phone: [facility] Work Phone: Start: 05-20-2023 Non-patient / Non-visit Dr. Anny Richardson Work Phone: [facility] Work Phone: Start: 05-19-2023 End: 05-21-2023 Evaluation and management of inpatient Dr. Erica Richardson Work Phone: [facility]-Medical Surgical 3 Work Phone: Start: 05-19-2023 Non-patient / Non-visit Dr. Anny Richardson Work Phone: [facility] Work Phone: Start: 05-09-2023 End: 05-09-2023 ambulatory ERICA RICHARDSON Facility:[facility] Start: 04-02-2023 End: 04-02-2023 ambulatory ERICA RICHARDSON Facility:[facility] Start: 11-23-2022 Telephone encounter Wu rico [employer] P[employer]ER Work Phone: [facility] Comment on above: Results Start: 11-22-2022 Non-patient / Non-visit Dr. Anny Richardson Work Phone: [facility] Work Phone: Start: 11-22-2022 End: 11-23-2022 Evaluation and management of inpatient [facility] 3 Work Phone: Start: 11-22-2022 End: 11-23-[address] Erica Richardson Work Phone: [facility] Work Phone: Start: 11-22-2022 End: 11-22-2022 Subsequent hospital visit by physician Xr [facility] Work Phone: Radiology Comment on above: Acute cough [R05.1] Start: 11-22-2022 End: 11-22-2022 ambulatory ERICA RICHARDSON Facility:[facility] Start: 11-22-2022 End: 11-22-2022 Patient encounter procedure Eliel Blount APRN.KILN PACKER Work Phone: [facility] Comment on above: Acute cough (Primary Dx); SOB (shortness of breath); Suspected COVID-19 virus infection Start: 11-14-2022 End: 11-14-2022 [facility] Start: 09-13-2022 End: 09-13-[address] Erica Richardson Work Phone: [facility] Work Phone: Start: 09-13-2022 End: 09-13-[address] Erica Richardson Work Phone: [facility] Start: 08-10-2022 End: 08-10-2022 ambulatory Lab/[facility] Work Phone: Hematology/Oncology Comment on above: Malignant neoplasm o f left breast in female, estrogen receptor positive, unspecified site of breast (HCC) (Primary Dx) Start: 07-13-2022 End: 07-13-2022 ambulatory Lab/[facility] Work Phone: Hematology/Oncology Comment on above: Malignant neoplasm o f left breast in female, estrogen receptor positive, unspecified site of breast (HCC) (Primary Dx) Start: 07-02-2022 End: 07-02-2022 Emergency department patient visit Dr. Erica Richardson Work Phone: [facility]-Emergency Department Start: 06-26-2022 End: 06-26-[address] Erica Richardson Work Phone: [facility] Work Phone: Start: 06-26-2022 End: 06-26-[address] Erica Richardson Work Phone: [facility] Start: 06-15-2022 End: 06-15-2022 ambulatory Lab/Port [facility] Work Phone: Hematology/Oncology Comment on above: Malignant neoplasm o f left breast in female, estrogen receptor positive, unspecified site of breast (HCC) (Primary Dx) Start: 06-07-2022 Non-patient / Non-visit Dr. Anny Richardson Work Phone: [facility] Start: 06-07-2022 End: 06-07-[address] Erica Richardson Work Phone: [facility] Work Phone: Start: 06-07-2022 End: 06-07-[address] Erica Richardson Work Phone: [facility]-Cardiovascular Services Start: 04-25-2022 End: 04-25-2022 ambulatory Lab/Port [facility] Work Phone: Hematology/Oncology Comment on above: Malignant neoplasm o f left breast in female, estrogen receptor positive, unspecified site of breast (HCC) (Primary Dx) Start: 03-28-2022 End: 03-28-2022 ambulatory Lab/[facility] Work Phone: Hematology/Oncology Comment on above: Malignant neoplasm o f left breast in female, estrogen receptor positive, unspecified site of breast (HCC) (Primary Dx) Start: 03-06-2022 End: 03-06-[address] Erica Richardson Work Phone: [facility] Work Phone: Start: 03-06-2022 End: 03-06-[address] Erica Richardson Work Phone: [facility] Start: 03-06-[address] Erica mejia Work Phone: [facility] Start: 03-03-2022 End: 03-03-[address] Erica Richardson Work Phone: [facility] Start: 02-27-2022 End: 02-27-[address] Erica Richardson Work Phone: [facility] Work Phone: Start: 02-27-2022 End: 02-27-[address] Erica Richardson Work Phone: [facility] Start: 02-27-[address] Erica mejia Work Phone: [facility] Start: 02-20-2022 End: 02-20-[address] Erica Richardson Work Phone: [facility] Work Phone: Start: 02-20-2022 End: 02-20-[address] Erica Richardson Work Phone: [facility] Start: 02-20-2022 Registered Referred [facility] Start: 02-13-2022 End: 02-13-2022 ambulatory [facility] Work Phone: Start: 02-13-2022 End: 02-13-2022 Departed Referred [facility] Start: 02-13-[address] Erica mejia Work Phone: [facility] Start: 02-06-2022 End: 02-06-[address] Erica Richardson Work Phone: [facility] Work Phone: Start: 02-06-2022 End: 02-06-[address] Erica Richardson Work Phone: [facility] Start: 02-06-[address] Erica mejia Work Phone: [facility] Start: 01-30-2022 End: 01-30-[address] Erica Richardson Work Phone: [facility] Work Phone: Start: 01-30-2022 End: 01-30-[address] Erica Richardson Work Phone: [facility] Start: 01-30-[address] Erica mejia Work Phone: [facility] Start: 01-22-2022 End: 01-22-[address] Erica Richardson Work Phone: [facility] Work Phone: Start: 01-22-2022 End: 01-22-[address] Erica Richardson Work Phone: [facility] Start: 01-22-[address] Erica mejia Work Phone: [facility] Start: 01-16-2022 End: 01-16-[address] Erica Richardson Work Phone: [facility] Work Phone: Start: 01-16-2022 End: 01-16-[address] Erica Richardson Work Phone: [facility] Start: 01-16-[address] Erica mejia Work Phone: [facility] Start: 01-10-2022 End: 01-10-2022 Emergency department patient visit Dr. Erica Richardson Work Phone: [facility]-Emergency Department Start: 01-09-2022 End: 01-09-2022 Patient encounter procedure All Tsang MD Work Phone: [facility] Comment on above: SDH (subdural hemato ma) (Primary Dx); Cerebral hemorrhage (HCC) Start: 01-09-2022 End: 01-09-2022 ambulatory ERICA RICHARDSON Facility:[facility] Start: 01-09-2022 End: 01-09-[address] Erica Richardson Work Phone: [facility] Start: 01-09-[address] Erica mejia Work Phone: [facility] Start: 01-04-2022 End: 01-04-2022 ambulatory Lab/[facility] Work Phone: Hematology/Oncology Comment on above: Malignant neoplasm o f left breast in female, estrogen receptor positive, unspecified site of breast (HCC) (Primary Dx) Start: 01-04-2022 End: 01-04-2022 Subsequent hospital visit by physician [facility] (I-Stat/1.5t) Work Phone: Radiology Comment on above: SDH (subdural hemato ma) (HCC) [S06.5X9A] Start: 01-03-2022 Telephone encounter Avni Shiva Brigido stephenson DO Work Phone: Hematology/Oncology Comment on above: Appointment Start: 01-02-2022 End: 01-02-[address] Erica Richardson Work Phone: [facility] Work Phone: Start: 01-02-2022 End: 01-02-[address] Erica Richardson Work Phone: [facility] Start: 01-02-[address] Erica mejia Work Phone: [facility] Start: 12-26-2021 End: 12-26-[address] Erica Richardson Work Phone: [facility] Work Phone: Start: 12-26-2021 End: 12-26-[address] Erica Richardson Work Phone: [facility] Start: 12-26-[address] Erica mejia Work Phone: [facility] Start: 12-20-2021 End: 12-20-[address] Erica Richardson Work Phone: [facility] Work Phone: Start: 12-20-2021 End: 12-20-[address] Erica Richardson Work Phone: [facility] Start: 12-20-[address] Erica mejia Work Phone: [facility] Start: 12-18-2021 End: 12-18-[address] Erica Richardson Work Phone: [facility] Work Phone: Start: 12-18-2021 End: 12-18-[address] Erica Richardson Work Phone: [facility] Start: 12-18-[address] Erica mejia Work Phone: [facility] Start: 12-12-2021 End: 12-12-[address] Erica Richardson Work Phone: [facility] Work Phone: Start: 12-12-2021 End: 12-12-[address] Erica Richardson Work Phone: [facility] Start: 12-12-[address] Erica mejia Work Phone: [facility] Start: 12-05-2021 End: 12-05-[address] Erica Richardson Work Phone: [facility] Work Phone: Start: 12-05-2021 End: 12-05-[address] Erica Richardson Work Phone: [facility] Start: 12-05-[address] Erica mejia Work Phone: [facility] Start: 12-03-2021 End: 12-03-[address] Erica Richardson Work Phone: [facility] Start: 12-01-2021 End: 12-01-[address] Erica Richardson Work Phone: [facility] Work Phone: Start: 12-01-2021 End: 12-01-[address] Erica Richardson Work Phone: [facility] Start: 12-01-[address] Erica mejia Work Phone: [facility] Start: 11-28-2021 End: 11-28-[address] Erica Richardson Work Phone: [facility] Work Phone: Start: 11-28-2021 End: 11-28-[address] Erica Richardson Work Phone: [facility] Start: 11-28-[address] Erica mejia Work Phone: [facility] Start: 11-21-2021 End: 11-21-[address] Erica Richardson Work Phone: [facility] Work Phone: Start: 11-21-2021 End: 11-21-[address] Erica Richardson Work Phone: [facility] Start: 11-21-[address] Erica mejia Work Phone: [facility] Start: 11-14-2021 End: 11-14-[address] Erica Richardson Work Phone: [facility] Start: 11-14-[address] Erica mejia Work Phone: [facility] Start: 11-09-2021 End: 11-09-[address] Erica Richardson Work Phone: [facility] Start: 11-09-[address] Erica mejia Work Phone: [facility] Start: 11-07-2021 End: 11-07-[address] Erica Richardson Work Phone: [facility] Start: 11-03-2021 End: 11-03-2021 ambulatory ERICA A MALYS Facility:[facility] Start: 11-02-2021 End: 11-02-2021 ambulatory ERICA A MALYS Facility:[facility] Start: 11-02-2021 End: 11-02-2021 Nursing evaluation of patient and report [facility] Work Phone: [facility] Comment on above: Closed fracture of m ultiple ribs with flail chest with routine healing, subsequent encounter (Primary Dx) Start: 11-02-2021 End: 11-02-2021 Subsequent hospital visit by physician Xr [facility] Comment on above: Closed fracture of m ultiple ribs of left side, initial encounter [S22.42XA] Start: 10-31-2021 End: 10-31-[address] Erica Richardson Work Phone: [facility] Start: 10-31-[address] Erica mejia Work Phone: [facility] Start: 10-30-2021 End: 10-30-2021 Subsequent hospital visit by physician [facility] (I-Stat) Work Phone: Cat Scan Comment on above: SDH (subdural hemato ma) (HCC) [S06.5X9A] Start: 10-27-2021 End: 10-27-[address] Erica Richardson Work Phone: [facility] Start: 10-25-2021 End: 10-25-[address] Erica Richardson Work Phone: [facility] Start: 10-24-2021 End: 10-24-[address] Erica Richardson Work Phone: [facility] Start: 10-24-[address] Erica mejia Work Phone: [facility] Start: 10-20-2021 Telephone encounter Sherice espino APRN.CNP Work Phone: [facility] Comment on above: Appointment Start: 10-12-2021 Telephone encounter Eugene Santos MD Work Phone: [facility] Comment on above: Patient Update Start: 10-11-2021 Orders Only Yolie braswell PA-C Work Phone: [facility] Comment on above: SDH (subdural hemato ma) (HCC) (Primary Dx) Start: 10-07-2021 End: 10-17-2021 Evaluation and management of inpatient ERICAShiva RICHARDSON Facility:[facility] Start: 10-06-2021 End: 10-07-2021 Emergency department patient visit Dr. Erica Richardson Work Phone: [facility]-Emergency Department Start: 10-03-2021 End: 10-03-2021 ambulatory Lab/[facility] Work Phone: Hematology/Oncology Comment on above: Malignant neoplasm o f left breast in female, estrogen receptor positive, unspecified site of breast (HCC) (Primary Dx) Start: 08-29-2021 End: 08-29-2021 ambulatory Lab/[facility] Work Phone: Hematology/Oncology Comment on above: Malignant neoplasm o f left breast in female, estrogen receptor positive, unspecified site of breast (HCC) (Primary Dx) Start: 08-10-2021 End: 08-10-[address] Erica Richardson Work Phone: [facility]-Outpatient Bone Densitometry Start: 08-07-2021 End: 08-07-[address] Erica Richardson Work Phone: [facility] Start: 08-01-2021 End: 08-01-2021 ambulatory Lab/[facility] Work Phone: Hematology/Oncology Comment on above: Malignant neoplasm o f left breast in female, estrogen receptor positive, unspecified site of breast (HCC) (Primary Dx) Start: 07-28-2021 End: 07-28-[address] Erica Richardson Work Phone: [facility]-Medical Out Start: 07-12-2021 End: 07-12-2021 Patient encounter procedure Nicho Johnson MD Work Phone: [facility] Comment on above: Otalgia, right (Prim neel Dx); Vertigo; URI, acute Start: 06-11-2021 End: 06-11-2021 Emergency department patient visit Dr. Erica Richardson Work Phone: [facility]-Emergency Department Start: 05-21-2021 End: 05-21-2021 Emergency department patient visit Dr. Erica Richardson Work Phone: [facility]-Emergency Department Start: 03-17-2021 End: 03-17-2021 Subsequent hospital visit by physician Xr [facility] Work Phone: Radiology Comment on above: Injury of left upper arm, subsequent encounter [S49.92XD] Start: 04-16-2020 End: 04-17-2020 Evaluation and management of inpatient Solomon Ashlie Tenorio Work Phone: [facility] Comment on above: Traumatic subdural h ematoma with loss of consciousness of 30 minutes or less, subsequent encounter (Primary Dx) Start: 06-13-2018 ambulatory UNKNOWN PROVIDER [facility] Procedures Date Procedure Procedure Detail [...] exam ches t 2 views Eliel Blount TELEGRAPH PLANT MAINTAINER.[employer] P[employer] Work Phone: Start: 07-02-2022 CT cervical spine [...] brain stem w/o w/contrast material Sherice Rosenberg [employer]LE[employer]APH [employer]ANT MAINTAINER.[employer] Work Phone: Start: 11-02-2021 Radiologic exam ches t 2 views Boaz Grimaldo PA-C Work Phone: Start: 10-30-2021 Ct head/brain w/o co ntrast material Yolie Lowe PA-C Work Phone: Start: 10-09-2021 Antibody screen ERICA BLACK Comment on above: Order Comment: Speci men Type: BLOOD SPECIMENOrdering Facility: [facility] Address: [address] [address] Performed By: #### T SCR ####[facility] BLOOD BANKCLIA [id number] [address] Start: 10-07-2021 Antibody screen ERICA BLACK Comment on above: Order Comment: Speci men Type: BLOOD SPECIMENOrdering Facility: [facility] Address: [address] [place] [address] Performed By: #### T SCR ####[facility] BLOOD BANKCLIA [id number] [address] Start: 10-07-2021 Plain chest X-ray Dr. [...] humerus minimu m 2 views Earline Rebolledo TELE[employer]APH [employer]ANT MAINTAINER[employer] P[employer]ER Work Phone: Start: 12-08-2020 Adult depression scr [...] thyroid sti mulating hormone tsh [address] Work Phone: Start: 04-17-2020 BASIC METABOLIC PANE [...] DTaP,Tdap,Td Vaccine (2 - Td or Tdap) [facility] Start: 10-17-2024 DIABETES SCREEN DIABETES SCREEN [facility] Start: 10-17-2024 Diabetes Screening Diabetes Screenin g [facility] Start: 10-12-2024 DIABETES SCREEN DIABETES SCREEN [facility] Start: 10-11-2024 DIABETES SCREEN DIABETES SCREEN [facility] Start: 09-26-2024 [facility] Start: 09-25-2024 Patient discharge [facility] Start: 09-23-2024 Following clinical pathway protocol [facility] Start: 09-23-2024 Patient referral to dietitian [facility] Start: 09-22-2024 Aspiration precautions [facility] Start: 09-22-2024 Assessment of risk o f venous thromboembolism [facility] Start: 09-22-2024 Fall prevention [facility] Start: 09-22-2024 Insertion of cathete r into peripheral vein [facility] Start: 09-22-2024 Introduction of urin neel catheter [facility] Start: 09-22-2024 Measuring intake and output [facility] Start: 09-22-2024 Providing care accor ding to standard [facility] Start: 09-22-2024 Provision of activit y privileges [facility] Start: 09-22-2024 Referral to occupati onal therapist [facility] Start: 09-22-2024 Referral to service [facility] Start: 09-22-2024 [facility] Start: 09-22-2024 Verification routine [facility] Start: 09-22-2024 Admission procedure [facility] Start: 09-22-2024 Hospital admission, emergency, from emergency room, medical nature [facility] Start: 09-22-2024 End: 09-22-2024 [facility] Start: 09-22-2024 Bacteria identified in Urine by Culture Urine Culture [facility] Start: 09-22-2024 Urine culture [facility] Start: 07-04-2024 [facility] Start: 07-04-2024 Venous catheter care management [facility] Start: 02-03-2024 End: 02-03-2024 ambulatory 02/03/2024 2:30 PM EDT Infusion Center Hematology/Oncology [address] [place] [address] Wstr, Lab/Port Mark [facility] [address] [place] [address] Q3MO PORT FLUSH* Hematology/Oncology Comment on above: Q3MO PORT FLUSH* Start: 12-22-2023 Covid-19 Vaccine ( season) Covid-19 Vaccine ( season) [facility] Start: 12-22-2023 Covid-19 Vaccine ( season) Covid-19 Vaccine ( season) [facility] Start: 12-22-2023 Influenza vaccination C [facility] Start: 11-23-2023 BP CONTROLLED (<130/80) BP CONTROLLE D (<130/80) [facility] Start: 08-20-2023 [facility] Start: 05-21-2023 Patient discharge [facility] Start: 05-21-2023 Removal of urinary catheter [facility] Start: 05-21-2023 Urinary bladder resi dual urine study [facility] Start: 05-19-2023 Aspiration precautions [facility] Start: 05-19-2023 Assessment of risk o f venous thromboembolism [facility] Start: 05-19-2023 Fall prevention [facility] Start: 05-19-2023 Inhalation therapy procedure [facility] Start: 05-19-2023 Insertion of cathete r into peripheral vein [facility] Start: 05-19-2023 Introduction of urin neel catheter [facility] Start: 05-19-2023 Measuring intake and output [facility] Start: 05-19-2023 Oxygen therapy [facility] Start: 05-19-2023 Providing care accor ding to standard [facility] Start: 05-19-2023 Provision of activit y privileges [facility] Start: 05-19-2023 Referral to occupati onal therapist [facility] Start: 05-19-2023 Referral to service [facility] Start: 05-19-2023 Speech therapy assessment [facility] Start: 05-19-2023 [facility] Start: 05-19-2023 Following clinical pathway protocol [facility] Start: 05-19-2023 Hospital admission, emergency, from emergency room, medical nature [facility] Start: 05-19-2023 Legionella pneumophi la Ag [Presence] in Urine [facility] Start: 05-19-2023 Streptococcus pneumo niae antigen assay [facility] Start: 05-19-2023 Verification routine [facility] Start: 05-19-2023 Admission procedure [facility] Start: 05-18-2023 End: 05-19-2023 Blood culture [facility] Start: 05-18-2023 Partial thromboplast in time, activated [facility] Start: 05-18-2023 Prothrombin time [facility] Start: 05-18-2023 End: 05-18-2023 [facility] Start: 05-18-2023 Bacteria identified in Blood by Culture Blood Culture [facility] Start: 05-18-2023 Bacteria identified in Urine by Culture [facility] Start: 04-22-2023 Advance Directive Discussion Advance Directive Discussion [facility] Start: 04-22-2023 Behavioral Health Screening Behavioral Health Screening [facility] Start: 01-09-2023 BP CONTROLLED (<130/80) BP CONTROLLE D (<130/80) [facility] Start: 12-21-2022 Covid-19 Vaccine () Covid-19 Vaccine () [facility] Start: 12-21-2022 Influenza vaccination C [facility] Start: 11-23-2022 Patient discharge [facility] Start: 11-23-2022 Venous catheter care management [facility] Start: 11-23-2022 Respiratory secretio n precautions [facility] Start: 11-22-2022 Physiotherapy of chest [facility] Start: 11-22-2022 Ambulation without limitation [facility] Start: 11-22-2022 Assessment of risk o f venous thromboembolism [facility] Start: 11-22-2022 Incentive spirometry [facility] Start: 11-22-2022 Insertion of cathete r into peripheral vein [facility] Start: 11-22-2022 Measuring intake and output [facility] Start: 11-22-2022 Oxygen therapy [facility] Start: 11-22-2022 Providing care accor ding to standard [facility] Start: 11-22-2022 Referral to occupati onal therapist [facility] Start: 11-22-2022 Referral to service [facility] Start: 11-22-2022 [facility] Start: 11-22-2022 Following clinical pathway protocol [facility] Start: 11-22-2022 Admission procedure [facility] Start: 11-22-2022 Verification routine [facility] Start: 11-22-2022 [facility] Start: 11-22-2022 Inhalation therapy procedure [facility] Start: 11-03-2022 BP CONTROLLED (<130/80) BP CONTROLLE D (<130/80) [facility] Start: 11-02-2022 BP CONTROLLED (<130/80) BP CONTROLLE D (<130/80) [facility] Start: 10-07-2022 Influenza vaccination LUNG CANCER SC REENING [facility] Start: 10-07-2022 Screening for malign ant neoplasm of lung Lung Cancer Screening [facility] Start: 10-05-2022 DIABETES SCREEN DIABETES SCREEN [facility] Start: 07-02-2022 Simple repair f/e/e/ n/l/m 2.6cm-5.0 cm RPR F/E/E/N/L/M 2.6-5.0 CM [facility] Start: 04-22-2022 ADVANCE DIRECTIVE DISCUSSION ADVANCE DIRECTIVE DISCUSSION [facility] Start: 04-22-2022 DEPRESSION ASSESSMENT DEPRESSION ASS ESSMENT [facility] Start: 02-02-2022 End: 12-02-2022 Radiologic exam chest 2 views XR CHEST 2V FRONTAL/LAT Radiology Routine Closed fracture of multiple ribs with flail chest with routine healing, subsequent encounter Expected: 02/02/2022, Expires: 12/02/2022 [facility] Work Phone: Comment on above: Expected: 02/02/2022 , Expires: 12/02/2022 Start: 01-10-2022 Simple repair scalp/neck/ax/genit/trunk 2.5cm/< RPR S/N/AX/GEN/TRNK 2.5CM/< [facility] Work Phone: Start: 12-21-2021 Influenza vaccination INFLUENZA (#1) [facility] Start: 12-08-2021 Adult depression screening assessment DEPRESSION SCREENING [facility] Start: 12-05-2021 Mammography MAMMOGRAM [facility] Start: 2021 RSV Vaccine (1 - 1-d ose 75+ series) RSV Vaccine (1 - 1-dose 75+ series) [facility] Start: 10-25-2021 End: 11-10-2022 Ct head/brain w/o contrast material CT BRAIN WO IVCON Radiology Routine SDH (subdural hematoma) (HCC) Expected: 10/25/2021, Expires: 11/10/2022 [facility] Work Phone: Comment on above: Expected: 10/25/2021 , Expires: 11/10/2022 Start: 10-07-2021 Plain chest X-ray Chest 1 View (Port able) [facility] Work Phone: Start: 10-07-2021 XR Chest Single view [facility] Work Phone: Start: 10-06-2021 Perq drainage pleura insert cath w/o imaging INSERT CATH PLEURA W/O IMAGE [facility] Work Phone: Start: 04-22-2021 ADVANCE DIRECTIVE DISCUSSION ADVANCE DIRECTIVE DISCUSSION [facility] Start: 04-22-2021 DEPRESSION ASSESSMENT DEPRESSION ASS ESSMENT [facility] Start: 12-21-2020 COVID-19 VACCINE (3 - Booster for Moderna series) COVID-19 VACCINE (3 - Booster for Moderna series) [facility] Start: 10-05-2020 Influenza vaccination LUNG CANCER SC REENING [facility] Start: 09-15-2020 COVID-19 VACCINE (3 - Booster for Moderna series) COVID-19 VACCINE (3 - Booster for Moderna series) [facility] Start: 09-15-2020 COVID-19 VACCINE (3 - Moderna series) COVID-19 VACCINE (3 - Moderna series) [facility] Start: 05-09-2020 End: 04-17-2021 CT Head WO Contrast CT Head WO Contrast Imaging Routine Traumatic subdural hematoma with loss of consciousness of 30 minutes or less, subsequent encounter Expected: 05/09/2020 (Approximate), Expires: 04/17/2021 [place] Comment on above: Expected: 05/09/2020 (Approximate), Expires: 04/17/2021 Start: 11-07-2011 Pneumococcal Vaccine : 65+ (1 of 1 - PCV) Pneumococcal Vaccine: 65+ (1 of 1 - PCV) [facility] Start: 11-07-2011 PNEUMOCOCCAL: 65+ (1 - PCV) PNEUMOCOCCAL: 65+ (1 - PCV) [facility] Start: 11-07-2011 PNEUMOVAX AGE 65 AND OVER WITH 5YR LOOKBACK (#1) PNEUMOVAX AGE 65 AND OVER WITH 5YR LOOKBACK (#1) [facility] Start: 2006 RSV Vaccine (1 - 1-d ose 60+ series) RSV Vaccine (1 - 1-dose 60+ series) [facility] Start: 1996 SHINGRIX VACCINE (1 of 2) VEGA GRIX VACCINE (1 of 2) [facility] Start: 11-07-1991 COLOGUARD (FIT-DNA) COLOGUARD (FIT-D NA) [facility] Start: 11-07-1991 Colonoscopy COLONOSCOPY [facility] Start: 11-07-1991 COLORECTAL CANCER SCREENING COLORECTAL CANCER SCREENING [facility] Start: 11-07-[address] COLONOGRAPHY [facility] Start: 11-07-1991 FECAL OCCULT BLOOD FECAL OCCULT BLOO D [facility] Start: 11-07-1991 LIPID SCREEN LIPID SCREEN [facility] Start: 11-07-1991 SIGMOIDOSCOPY SIGMOIDOSCOPY [facility] Start: 1965 SHINGRIX VACCINE (1 of 2) VEGA GRIX VACCINE (1 of 2) [facility] Start: 1965 Urine microalbumin profile DTAP,TDAP,TD (1 - Tdap) [facility] Start: 1964 ANNUAL PCP TEAM RV BODY MECHANIC ALICIA DISEASE VISIT ANNUAL PCP TEAM CHRONIC DISEASE VISIT [facility] Start: 1964 BP CONTROLLED (<130/80) BP CONTROLLE D (<130/80) [facility] Start: 1964 Depression Screening Depression Scre ening [facility] Start: 1964 HEPATITIS C SCREENING HEPATITIS C [facility] Start: 1964 Hepatitis C screening Hepatitis C [facility] Start: 1952 PNEUMOCOCCAL: 65+ (1 - PCV) PNEUMOCOCCAL: 65+ (1 - PCV) [facility] End: 04-17-2020 aPTT Coag (Bld) [Time] APTT Lab STAT One Time for 1 Occurrences starting 04/17/2020 until [facility] on above: One Time for 1 Occur rences starting 04/17/2020 until 04/17/2020 aPTT in Platelet poo r plasma by Coagulation assay [facility] Bacteria identified in Sputum by Respiratory culture [facility] Basic Metabolic Pane l w/ Reflex to MG Basic Metabolic Panel w/ Reflex to MG Lab Routine Daily until discontinued starting 04/16/2020, 2 [facility] Comment on above: Daily until disconti nued starting 04/16/2020, 2 completed CBC auto differential CBC auto d ifferential Lab Routine Daily until discontinued starting 04/16/2020, 2 [facility] Comment on above: Daily until disconti nued starting 04/16/2020, 2 completed EKG 12 Lead EKG 12 Lead ECG Routine 04/16/2020 11:45 AM EST [facility] INR in Platelet poor plasma by Coagulation assay [facility] Magnesium [Mass/volu me] in Serum or Plasma [facility] Microscopic observat ion [Identifier] in Unspecified specimen by Gram stain [facility] Oxygen therapy [Mini mum Data Set] Initiate Oxygen Therapy Protocol Respiratory Care Routine Daily until discontinued starting 04/16/2020 [facility] [place] Comment on above: Daily until disconti nued starting 04/16/2020 Patient Education [facility] Work Phone: Patient referral [facility] Work Phone: Phosphate [Mass/Vol] Phosphorus Lab Routine Daily until discontinued starting 04/17/2020, 1 completed [facility] [place] Comment on above: Daily until disconti nued starting 04/17/2020, 1 completed Radiologic exam ches t 2 views XR CHEST 2V FRONTAL/LAT Radiology Routine Closed fracture of multiple ribs of left side, initial encounter Lung laceration, subsequent encounter 11/02/2021 12:32 PM EDT [facility] Work Phone: SARS-CoV-2 (COVID-19 ) RNA [Presence] in Respiratory specimen by LEONA with probe detection 2019 CORONAVIRUS Microbiology Routine Acute cough SOB (shortness of breath) Suspected COVID-19 virus infection 11/22/2022 12:45 PM EDT [facility] Work Phone: Serum inorganic phos phate measurement [facility] End: 04-16-2020 Speech and language therapy regime Speech language pathology evaluation 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 Routine One Time for 1 Occurrences starting 04/16/2020 until 04/16/2020 [facility] [place] Comment on above: One Time for 1 Occur rences starting 04/16/2020 until 04/16/2020 End: 04-18-2020 Vitamin D 25 Hydroxy Vitamin D 25 Hydroxy Lab Routine Tomorrow AM for 1 Occurrences starting 04/18/2020 until 04/18/2020 [facility] [place] Comment on above: Tomorrow AM for 1 Oc currences starting 04/18/2020 until 04/18/2020 [facility] Immunizations Immunization Date Immunization Notes Care Provider Fa cility 12-18-2023 tetanus toxoid, reduced diphtheria toxoid, and acellular pertussis vaccine, adsorbed Dr. Erica Richardson DO Work Phone: [facility] 08-20-2023 tetanus toxoid, reduced diphtheria toxoid, and acellular pertussis vaccine, adsorbed Dr. Erica Richardson Work Phone: [facility] 03-09-2021 influenza, injectabl e, quadrivalent, preservative free Dr. Erica Richardson Work Phone: [facility] 03-09-2021 influenza, seasonal, injectable Dr. Erica Richardson Work Phone: [facility] 03-09-2021 influenza virus vaccine, unspecified formulation Lab/Port Wstr Work Phone: [facility] 07-27-2020 Covid (Moderna) Dr. Erica kuhn Work Phone: [facility] 07-21-2020 COVID-19 vaccine, fu ll dose (MODERNA) Nicho Johnson MD Work Phone: [facility] 06-29-2020 Covid (Moderna) Dr. Erica kuhn Work Phone: [facility] 06-24-2020 COVID-19 vaccine, fu ll dose (MODERNA) Nicho Johnson MD Work Phone: [facility] 02-09-[address] Eirca Richardson Work Phone: [facility] 09-11-[address] Elena Richardson Work Phone: [facility] Work Phone: 09-11-2019 pneumococcal vaccine , unspecified formulation [facility] 06-16-2019 tetanus toxoid, reduced diphtheria toxoid, and acellular pertussis vaccine, adsorbed Dr. Erica Richardson Work Phone: [facility] 01-23-2019 influenza, high dose seasonal, preservative-free Nicho Johnson MD Work Phone: [facility] NEGATED: Highlighted row has not occurred!04-17-2020 tetanus and diphtheria toxoids, adsorbed, preservative free, for adult use (5 Lf of tetanus toxoid and 2 Lf of diphtheria toxoid) [place], [place] Payers Date Payer Category Payer Self-pay [id number] 2016 Unknown [employer] DICARE SUPPLEMENT [id number] 2016-Present [phone] [address] Indemnity [id number] 2016 Unknown [employer] DICARE SUPPLEMENT [id number] 2016-Present [phone] [id number] [place], [place] [id number] Indemnity [id number] 2012 Unknown [id number] 2011 Medicare MEDICARE MEDICAR E A AND B [id number] 2011-Present [phone] [place] [address] Medicare [id number] 2011 Medicare MEDICARE MEDICAR E A AND B [id number] 2011-Present [phone] [place] [address] Medicare [id number] 2011 Medicare [id number] Unknown [id number] [id number] 2 Unknown [id number] 2.16.840.1.699071.3.579.2.46 2 Unknown [id number] 2.16.840.1.013709.3.579.2.46 2 Unknown [id number] 2.16.840.1.854627.3.579.2.46 2 Unknown [id number] 2.16.840.1.928999.3.579.2.46 2 Unknown [id number] 2.16.840.1.335387.3.579.2.46 2 Unknown [id number] 2.16.840.1.422539.3.579.2.46 2 Unknown [id number] 2.16.840.1.469136.3.579.2.46 2 Unknown [id number] 2.16.840.1.040582.3.579.2.46 2 Unknown [id number] 2.16.840.1.249933.3.579.2.46 2 Unknown [id number] 2.16.840.1.754411.3.579.2.46 2 Unknown [id number] 2.16.840.1.274472.3.579.2.46 2 Unknown [id number] 2.16.840.1.789662.3.579.2.46 2 Unknown [id number] 2.16.840.1.987019.3.579.2.46 2 Unknown [id number] 2.16.840.1.344366.3.579.2.46 2 Unknown [id number] 2.16.840.1.906847.3.579.2.46 2 Unknown [id number] 2.16.840.1.635885.3.579.2.46 2 Unknown [id number] 2.16.840.1.344526.3.579.2.46 2 Unknown [id number] 2.16.840.1.010548.3.579.2.46 2 Unknown [id number] 2.16.840.1.486493.3.579.2.46 2 Unknown [id number] 2.16.840.1.332316.3.579.2.46 2 Unknown [id number] 2.16.840.1.430989.3.579.2.46 2 Unknown [id number] 2.16.840.1.924581.3.579.2.46 2 Unknown [id number] 2.16.840.1.943224.3.579.2.46 2 Unknown [id number] 2.16.840.1.055750.3.579.2.46 2 Unknown [id number] 2.16.840.1.834444.3.579.2.46 2 Unknown [id number] 2.16.840.1.978930.3.579.2.46 2 Unknown [id number] 2.16.840.1.709802.3.579.2.46 2 Social History Date Type Detail Facility Start: 04-17-2020 End: 09-26-2024 Tobacco smoking status NHIS Former smoker [facility] Start: 02-20-1979 End: 02-20-2019 History of tobacco use Current smoker [place], [place] Start: 03-29-2020 End: 04-17-2020 Cigarettes smoked current (pack per day) - Reported [facility] Start: 05-01-2019 End: 04-17-2020 Tobacco use and exposure Never used [place], [place] Start: 04-17-2020 Alcohol intake Current drinke r of alcohol (finding) [place], [place] Start: 04-16-2020 Alcohol Comment 2-3 times a week [place], [place] Start: 1945 Sex Assigned At Not on file [place] Start: 02-15-2021 End: 01-09-2022 Exposure to SARS-CoV-2 (event) Not sure [place], [place] Start: 02-20-1979 End: 02-20-2019 History of tobacco use Cigarette Smoker [facility] Start: 01-12-2021 End: 07-12-2021 Alcohol intake Current non-drinker of alcohol (finding) [facility] Start: 08-07-2021 End: 08-20-2023 Tobacco smoking status NHIS Unknown if ever smoked [facility] Start: 03-11-2020 Heavy [facility] Start: 03-10-2020 None [place] [facility] Start: 03-11-2020 Alone [facility] Start: 09-01-2019 Cigarettes [facility] Start: 1945 Sex Assigned At Female [facility] Start: 03-29-2020 End: 11-22-2022 Tobacco use panel [facility] National Score (1-10 0), lower number is lower risk 99 [facility] Start: 07-04-2024 Sex Female (finding) [facility] Medical Equipment Procedure Code Equipment Code Equipment Origin al Text Equipment Identifier Dates Chw-Pq-U-Kind Implant - [id number] Start: 06-10-2015 Comment on above: Description: 3.5mm L CP plate 6 hole 85mm length [id number] PLATE Oyq-Gz-X-Kind Implant - [id number] Start: 06-10-2015 Comment on above: Description: DBX Put ty 0.5cc Screw [id number] Start: 06-13-2018 Plate Philos Standard Stainless Steel 90mm Bone 3 Hole Locking Compression - [id number] Start: 06-13-2018 Port Implantable Power Port 6fr - [id number] Start: 06-30-2012 Comment on above: Description: POWERPO RT Screw Lc-Dcp Dcp 3.5mm 6mm Full Thread Stainless Steel 14mm Bone Self Tap - [id number] Start: 06-10-2015 Screw Lcp 3.5mm Full Thread Stainless Steel 14mm Bone Stardrive Recess Self - [id number] Start: 06-10-2015 Screw Lc-Dcp Dcp 3.5mm 6mm Full Thread Stainless Steel 16mm Bone Self - [id number] Start: 06-10-2015 Screw 3.7mm T15 Full Thread Stainless Steel 36mm Bone Self Drill Cannulated - [id number] Start: 06-13-2018 Screw Lcp 3.5mm Full Thread Stainless Steel 26mm Bone Stardrive Recess Self - [id number] Start: 06-13-2018 Screw Dcp Lc-Dcp 3.5mm Stainless Steel 28mm Bone Self Tapping Hexagonal - [id number] Start: 06-13-2018 Screw 3.7mm Full Thread T15 Stainless Steel 38mm Bone Self Drill Cannulated - [id number] Start: 06-13-2018 Screw Lcp 3.5mm Stainless Steel 26mm Bone Self Tapping Small Fragment - [id number] Start: 06-13-2018 Screw 3.7mm T15 Full Thread Stainless Steel 50mm Bone Self Drill Cannulated - [id number] Start: 06-13-2018 Screw 3.7mm T15 Full Thread Stainless Steel 40mm Bone Self Drill Cannulated - [id number] Start: 06-13-2018 Plate Straight Eight Hole [id number] Start: 10-09-2021 Plate Pre-Contou red Sixteen Hole [id number] Start: 10-09-2021 Screw Locking Self-Drilling 2.4mm X 8mm [id number] Start: 10-09-2021 Cap Locking Larg e Bone Screw 323.1205 [id number]_imp Start: 10-09-2021 Washer 9.5mm 323.1290 [id number]_imp Start: 10-09-2021 Advatagerib Shor t Bridge 60mm W/23mm Locking Posts [id number] Start: 10-09-2021 2.7mm X 8mm Resc ue Locking Screw - [id number]_imp Start: 10-09-2021 Goals Date Patient Goal Desired Activity /State Functional Status Date Assessment Result Facility 09-25-2024 Functional status Ambulates [facility] Work Phone: 05-21-2023 Functional status Ambulates [facility] Work Phone: 11-23-2022 Functional status Ambulates;Bathroom Priv ilege [facility] Work Phone: Mental Status Date Assessment Result Facility 09-25-2024 Cognitive function Voice/Name [facility] Work Phone: 09-22-2024 Cognitive function Level Of Cons ciousness Awake;Alert;Follows Commands [facility] Work Phone: 07-04-2024 Cognitive function Level Of Cons ciousness Awake;Alert;Appropriate [facility] Work Phone: 05-21-2023 Cognitive function Voice/Name [facility] Work Phone: 05-18-2023 Cognitive function Voice/Name [facility] Work Phone: 11-23-2022 Cognitive function Cooperative;Talkative [facility] Work Phone: 06-11-2021 Cognitive function Level Of Cons ciousness Awake;Alert;Appropriate;Follow s Commands [facility] Work Phone: Clinical Notes 07-17-2012 to 09-26-2024 Note Date & Type Note Facility 09-26-2024 Discharge summary [facility] 09-26-2024 Radiology Diagnostic study note [facility] Imaging Services [address] [place] [address] Shoulder min 2 Views MR#: [id number] Acct: [id number] Name: AIDEN FIELDS Rep #: [id number] : 1945 F 78 From: Pet er Peer DO PCP: Dr. Sheyla Mcgee MD Status: R ER Study:Shoulder min 2 Views Date of Exam: 09/26/24 Exam# [id number] Ordering Dr: Melva Olivas DO PROCEDURE: SHOULDER [...] distal 3rd of the clavicle. [facility] CC: Dr. Sheyla Mcgee MD; Dr. Franky Olivas DO ~ Radio Mechanic Helper: Signed [facility] 09-26-2024 Radiology Diagnostic study note [facility] Imaging Services [address] [place] [address] Clavicle MR#: [id number] Acct: [id number] Name: AIDEN FIELDS Rep #: [id number] : 1945 F 78 From: Pet er Peer PCP: Dr. Sheyla Mcgee MD Status: R EG ER Study:Clavicle Date of Exam: 09/26/24 Exam# [id number] Ordering Dr: Melva Olivas DO PROCEDURE: CLAVICLE 09/26/2024 REASON FOR EXAM: FALL Initial encounter TECHNIQUE: 2 view(s) of the left clavicle COMPARISON: No prior left clavicle radiographs. FINDINGS: LEFT CLAVICLE: Fracture in the distal 3rd of the clavicle with the parent 8 mm inferior displacement of the distal fracture fragment, been a apposition RAD/Clavicle IMPRESSION: Distal left clavicle fracture Reading [facility] CC: Dr. Sheyla Mcgee MD; Dr. Franky Olivas DO ~ Radio Mechanic Helper: Signed [facility] 09-26-2024 Discharge summary Note Date/Time September 26, 2024 3:07p m [facility] Medical Records Department [address] [facility] [place] [address] Emergency Department Summary 09/26/24 MR#: [id number] Acct: [id number] Name: AIDEN FIELDS Rep #:[id number] : 1945 78 From: Franky Olivas DO [...] weakness they deny any blood thinning medications. [facility] Medical History Anxiety and depression Hypoparathyroidism [...] Neosporin Allergy Unknown Unknown Verified 09/22/24 20:06 (rgb-vos-gvpey)) neomycin (From Neosporin Allergy Unknown Unknown Verified 09/22/24 20:06 (cxi-xro-mvecg)) polymyxin B (From Neosporin Allergy Unknown Unknown Verified 09/22/24 20:06 (euk-ove-lczct)) Antihistamines - Alkylamine Allergy PT UNSURE Verified [...] follow commands and that she was at [facility] the year is 2024. Sensation grossly intact [...] IMPRESSION: Distal left clavicle fracture Reading Location: [facility] Shoulder X-Ray 09/26/24 13:44 IMPRESSION: Fracture in the distal 3rd of the clavicle. Reading Location: [facility] Discharge Plan Triage Chief Complaint: Fall ED [...] worsening symptoms or any concerns Print Language: Kyrgyz Disposition Disposition: Home, Self Care What to do if you have Problems For any increased pain, shortness of breath, bleeding, nausea or vomiting, chestpain, or any unexpected problems, contact your Primary Care Provider. Call [facility] ([phone]) or report to the closest Emergency Room. Call 911 if necessary. 09/26/24 1507 <Electronically signed by Franky Olivas DO> Cosigner Signature (if applicable): CC: Dr. Sheyla Mcgee MD ~ Signed [facility] Work Phone: 1([phone]) 771-529206-06-2025 Discharge summary Author Froy [facility] Note Date/Time September 25, 2024 10:34 am [facility] Medical Records Department [address] [place] [address] Discharge Summary 09/25/24 1032 MR#: [id number] Acct: [id number] Name: AIDEN FIELDS Rep #:[id number] : 1945 78 From: Froy Velázquez DO PCP: Dr. Erica Richardson DO Status:ADM IN Location: [place] [id number]- 1 Providers Date of Admission: 09/22/24 Primary [...] agents VTE prophylaxis: LMWH Disposition: DC to [facility] today. Medications at Discharge Home Medications [...] meropenem for 7 days. [facility] in stable condition. Weight / [...] Provider: Froy Velázquez Primary Care Provider: Erica Richarsdon Consulting Providers: Aggie Bolton Discharge Orders/Prescriptions Prescriptions: [...] in before D/C Order can be placed): [facility] Facility Charges/Coding Visit Charges Inpatient E&M: 62007 Disch Hosp >30min 09/25/24 1034 <Electronically signed by Froy Velázquez DO> Cosigner Signature (if applicable): CC: Dr. Froy Velázquez DO; Dr. Erica Richardson DO~ Signed [facility] Work Phone: 1([phone]) 467-225206-06-2025 Discharge summary Author Froy Velázquez [facility] Note Date/Time September 25, 2024 10:32 am [facility] Medical Records Department [address] [place] [address] Transfer to [facility] MR#: [id number] Acct: [id number] Name: AIDEN FIELDS Rep #:[id number] : 1945 78 From: Froy Velázquez DO PCP: Dr. Erica Richardson DO Status:ADM IN Certification of patient admission REQUIRED AT TIME OF ADMISSION. I CERTIFY THAT POST-HOSPITAL ECF SERVICES ARE REQUIRED TO BE GIVEN ON AN IN-PATIENT BASIS BECAUSE OF THE ABOVE NAMED PATIENT'S NEED FOR USP CARE ON A CONTINUING BASIS FOR THE CONDITION(S) FOR WHICH HE/SHE WAS RECEIVING IN-PATIENT HOSPITAL SERVICES PRIOR TO HIS/HER TRANSFER TO THE [facility]. 09/25/24 1032<Electronically signed by Froy Velázquez DO> [...] agents VTE prophylaxis: LMWH Disposition: DC to [facility] today. Allergies/Procedures Done in Hospital Allergies bacitracin (From Neosporin (cbl-brj-qbhln)) Allergy (Unknown, Verified 09/22/24 20:06) Unknown neomycin (From Neosporin (ggh-rxr-rvtac)) Allergy (Unknown, Verified 09/22/24 20:06) Unknown polymyxin B (From Neosporin (hxm-ura-zjhif)) Allergy (Unknown, Verified 09/23/2519:06) Unknown Antihistamines - [...] in before D/C Order can be placed): [facility] Facility 09/25/24 1032 <Electronically signed by Froy Velázquez DO> Cosigner Signature (if applicable): CC: Dr. Aggie Bolton MD; Dr. Erica Richardson, ~ [facility] Work Phone: 1([phone]) 513-769406-06-2025 Progress note Author Froy Velázquez [facility] Note Date/Time September 25, 2024 10:26 am [facility] Medical Records Department [address] [place] [address] Progress Note - Hospitalist 09/25/24 0803 MR#: [id number] Acct: [id number] Name: AIEDN FIELDS Rep #:[id number] : 1945 78 From: Froy Velázquez DO PCP: Dr. Erica Richardson DO Status:ADM IN Location: [place] [address] Reason for Visit Reason for Visit: Diagnoses [...] agents VTE prophylaxis: LMWH Disposition: DC to [facility] today. 09/25/24 1026 <Electronically signed by Froy Velázquez DO> Cosigner Signature (if applicable): CC: ~ Signed [facility] Work Phone: 1([phone]) 693-898306-06-2025 Discharge summary [facility] Medical Records Department [address] [place] [address] Discharge Summary 09/25/24 1032 MR#: [id number] Acct: [id number] Name: AIDEN FIELDS Rep #:[id number] : 1945 78 From: Froy Velázquez DO PCP: Dr. Erica Richardson DO Status:ADM IN Location: [place] [address] Providers Date of Admission: 09/22/24 Primary Care [...] agents VTE prophylaxis: LMWH Disposition: DC to [facility] today. Medications at Discharge Home Medications dexamethasone [...] meropenem for 7 days. Patient be dischargedto [facility] in stable condition. Weight / BMI [...] in before D/C Order can be placed): [facility] Facility Charges/Coding Visit Charges Inpatient E&M: 70350 Disch Hosp >30min 09/25/24 1034 Cosigner Signature (if applicable): CC: Dr. Froy Velázquez DO; Dr. Erica Richardson DO~ Signed [facility]06-06-2025 Discharge summary [facility] Medical Records Department [address] [place] [address] Transfer to [facility] MR#: [id number] Acct: [id number] Name: AIDEN FIELDS Rep #:[id number] : 1945 78 From: Froy Velázquez DO PCP: Dr. Erica Richardson DO Status:ADM IN Certification of patient admission REQUIRED AT TIME OF ADMISSION. I CERTIFY THAT POST-HOSPITAL [facility] SERVICES ARE REQUIRED TO BE GIVEN ON AN IN-PATIENT BASIS BECAUSE OF THE ABOVE NAMED PATIENT'S NEED FOR USP CARE ON A CONTINUING BASIS FOR THE CONDITION(S) FOR WHICH HE/SHE WAS RECEIVING IN-PATIENT HOSPITAL SERVICES PRIOR TO HIS/HER TRANSFER TO THE [facility]. 09/25/24 1032 Diet Diet Order/Speech Therapy: INPATIENT [...] agents VTE prophylaxis: LMWH Disposition: DC to [facility] today. Allergies/Procedures Done in Hospital Allergies bacitracin (From Neosporin (sob-kah-dkcnr)) Allergy (Unknown, Verified 09/22/24 20:06) Unknown neomycin (From Neosporin (lds-gnt-ahfxy)) Allergy (Unknown, Verified 09/22/24 20:06) Unknown polymyxin B (From Neosporin (fid-upr-hzqgj)) Allergy (Unknown, Verified 09/23/2519:06) Unknown Antihistamines - [...] in before D/C Order can be placed): [facility] Facility 09/25/24 1032 Cosigner Signature (if applicable): CC: Dr. Aggie Bolton MD; Dr. Erica Richardson DO ~ [facility]06-06-2025 [facility] Medical Records Department [address] [place] [address] Discharge Summary 09/25/24 1032 MR#: [id number] Acct: [id number] Name: AIDEN FIELDS Rep #: [id number] : 1945 78 From: Froy Velázquez DO PCP: Dr. Erica Richardson DO Status:ADM IN [facility] Providers Date of Admission: 09/22/24 Primary Care [...] agents VTE prophylaxis: LMWH Disposition: DC to [facility] today. Medications at Discharge Home Medications [...] for 7 days. Patient be discharged to [facility] in stable condition. Weight / BMI [...] 20 mg tablet 2 (more content not included)...[facility]06-06-2025 Progress note [facility] Medical Records Department [address] [place] [address] Progress Note - Hospitalist 09/25/24 0803 MR#: [id number] Acct: [id number] Name: AIDEN FIELDS Rep #:[id number] : 1945 78 From: Froy Velázquez DO PCP: Dr. Erica Richardson, DO Status:ADM IN Location: [place] [address] Reason for Visit Reason for Visit: Diagnoses [...] agents VTE prophylaxis: LMWH Disposition: DC to [facility] today. 09/25/24 1026 Cosigner Signature (if applicable): CC: ~ Signed [facility]06-05-2025 Progress note Author Froy Velázquez [facility] Note Date/Time September 24, 2024 12:26 pm [facility] Medical Records Department [address] [place] [address] Progress Note - Hospitalist 09/24/24 0809 MR#: [id number] Acct: [id number] Name: AIDEN FIELDS Rep #:[id number] : 1945 78 From: Froy Velázquez DO PCP: Dr. Erica Richardson, DO Status:ADM IN Location: [place] [address] Reason for Visit Reason for Visit: Diagnoses [...] on 09/25 Charges/Coding Visit Charges Inpatient E&M: 06395 Subs Hosp L2 09/24/24 1226 <Electronically signed by Froy Jopperi DO> Cosigner Signature (if applicable): CC: ~ Signed [facility] Work Phone: 1(521) 991-466806-05-2025 Progress note [facility] Medical Records Department [address] [place] [address] Progress Note - Hospitalist 09/24/24 0809 MR#: [id number] Acct: [id number] Name: AIDEN FIELDS Rep #:[id number] : 1945 78 From: Froy Velázquez DO PCP: Dr. Erica Ricahrdson, DO Status:ADM IN Location: [place] [address] Reason for Visit Reason for Visit: Diagnoses [...] on 09/25 Charges/Coding Visit Charges Inpatient E&M: 23059 Subs Hosp L2 09/24/24 1226 Cosigner Signature (if applicable): CC: ~ Signed [facility]06-04-2025 Progress note Author Froy Velázquez [facility] Note Date/Time September 23, 2024 3:21p m [facility] Medical Records Department [address] [place] [address] Progress Note - Hospitalist 09/23/24 0816 MR#: [id number] Acct: [id number] Name: AIDEN FIELDS Rep #:[id number] : 1945 78 From: Froy Velázquez DO PCP: Dr. Erica Richardson, DO Status:ADM IN Location: [place] [address] Reason for Visit Reason for Visit: Diagnoses [...] (Auto) 69.5, Lymph % (Auto) 18.8 L, [place] % (Auto) 7.5, Eos % (Auto) 2.9, [...] Clarity Cancelled, Urine pH Cancelled, Ur Specific [place] Cancelled, U Specif Grav (Refrac) Cancelled, Urine [...] Clarity Cloudy, Urine pH 5.0, Ur Specific [place] 1.015, Urine Protein 15 H, Urine Glucose [...] (Auto) 70.6 H, Lymph % (Auto) 16.2 L,[place] % (Auto) 9.6, Eos % (Auto) 2.4, [...] IMPRESSION: No acute intracranial abnormality. Reading Location: [id number] Chest X-Ray 09/22/24 20:55 IMPRESSION: No acute cardiopulmonary abnormalities. Reading Location: [id number] Physical Exam Const alert and no apparent [...] prophylaxis: LMWH Charges/Coding Visit Charges Inpatient E&M: 05165 Subs Hosp L2 09/23/24 1521 <Electronically signed by Froy Velázquez DO> Cosigner Signature (if applicable): CC: ~ Signed [facility] Work Phone: [phone]) 373-859906-04-2025 Progress note [facility] Medical Records Department [address] [place] [address] Progress Note - Hospitalist 09/23/24 0816 MR#: [id number] Acct: [id number] Name: AIDEN FIELDS Rep #:[id number] : 1945 78 From: Froy Velázquez DO PCP: Dr. Erica Richardson DO Status:ADM [facility] Reason for Visit Reason for Visit: [...] (Auto) 69.5, Lymph % (Auto) 18.8 L, [place] % (Auto) 7.5, Eos % (Auto) 2.9, [...] Clarity Cancelled, Urine pH Cancelled, Ur Specific [place] Cancelled, U Specif Grav (Refrac) Cancelled, Urine [...] Clarity Cloudy, Urine pH 5.0, Ur Specific [place] 1.015, Urine Protein 15 H, Urine Glucose [...] (Auto) 70.6 H, Lymph % (Auto) 16.2 L,[place] % (Auto) 9.6, Eos % (Auto) 2.4, [...] IMPRESSION: No acute intracranial abnormality. Reading Location: [place] [address] Chest X-Ray 09/22/24 20:55 IMPRESSION: No acute cardiopulmonary abnormalities. Reading Location: [place] [address] Physical Exam Const alert and no apparent [...] prophylaxis: LMWH Charges/Coding Visit Charges Inpatient E&M: 63887 Subs Hosp L2 09/23/24 1521 Cosigner Signature (if applicable): CC: ~ Signed [facility]06-04-2025 History and physical note Author Aggie Bolton [facility] Note Date/Time September 23, 2024 12:18 am [facility] Medical Records Department [address] [place] [address] H&P Exam - Hospitalist 09/22/24 4830 MR#: [id number] Acct: [id number] Name: AIDEN FIELDS Rep #:[id number] : 1945 78 From: Aggie Bolton MD PCP: Dr. Erica Richardson, DO Status:ADM IN Location: [place] [id number] 1 HPI - General General Date of [...] history Chronic anemia who presents to the [facility] ED on 09/22/2024 with history of [...] Neosporin Allergy Unknown Unknown Verified 09/22/24 20:06 (hop-jnu-obdmz)) neomycin (From Neosporin Allergy Unknown Unknown Verified 09/22/24 20:06 (tyg-glr-auyli)) polymyxin B (From Neosporin Allergy Unknown Unknown Verified 09/22/24 20:06 (cmr-akk-uxaxh)) Antihistamines - Alkylamine Allergy PT UNSURE Verified [...] (Auto) 69.5, Lymph % (Auto) 18.8 L, [place] % (Auto) 7.5, Eos % (Auto) 2.9, [...] Clarity Cancelled, Urine pH Cancelled, Ur Specific [place] Cancelled, U Specif Grav (Refrac) Cancelled, Urine [...] Clarity Cloudy, Urine pH 5.0, Ur Specific [place] 1.015, Urine Protein 15 H, Urine Glucose [...] IMPRESSION: No acute intracranial abnormality. Reading Location: [place] [address] Chest X-Ray 09/22/24 20:55 IMPRESSION: No acute cardiopulmonary abnormalities. Reading Location: [place] [address] Assessment & Plan Assessment/Plan (1) UTI (urinary tract infection): PLAN: Plan The patient is a 78 y/o F w/ PMHx: HTN, Anxiety and Depression/Mood disorder, Former tobacco use, Former chart reported history EtOH abuse, Hx Frequent falls,Rheumatoid arthritis, Hypothyroidism s/p prior thyroidectomy, GERD, Hx Breast CAunclear type s/p mastectomy in remission, Chart reported history Chronic anemia who presents to the [facility] ED on 09/22/2024 with history of [...] daughter is her healthcare power of estate attorney and patient is a full code. Charges/Coding Visit Charges Inpatient E&M: 63484 Init Hosp L3 09/23/24 0018 <Electronically signed by Aggie Bolton MD> Cosigner Signature (if applicable): CC: Dr. Aggie Bolton MD; Dr. Erica Richardson, ~ Signed [facility] Work Phone: [phone]) 710-580106-04-2025 Discharge summary [facility] Note Date/Time September 22, 2024 10:46 pm [facility] Medical Records Department [address] [place] [address] Emergency Department Summary 09/22/24 MR#: [id number] Acct: [id number] Name: AIDEN FIELDS Rep #:[id number] : 1945 78 From: [place] Quijano MD [...] 12 hours which is unusual for her. [facility] Medical History Anxiety and depression Hypoparathyroidism [...] Neosporin Allergy Unknown Unknown Verified 09/22/24 20:06 (ffa-ftu-bsjuc)) neomycin (From Neosporin Allergy Unknown Unknown Verified 09/22/24 20:06 (vdd-tvt-vhrep)) polymyxin B (From Neosporin Allergy Unknown Unknown Verified 09/22/24 20:06 (akn-bvp-badmv)) Antihistamines - Alkylamine Allergy PT UNSURE Verified [...] (Auto) 69.5 Lymph % (Auto) 18.8 L [place] % (Auto) 7.5 Eos % (Auto) 2.9 [...] Cloudy Urine pH Cancelled 5.0 Ur Specific [place] Cancelled 1.015 U Specif Grav (Refrac) Cancelled [...] IMPRESSION: No acute intracranial abnormality. Reading Location: [place] [address] Chest X-Ray 09/22/24 20:55 IMPRESSION: No acute cardiopulmonary abnormalities. Reading Location: [place] [address] Management Discussion w/another healthcare provider: Hospitalist (Dr. Bolton) Discharge Plan Dx/Rx/DC Orders Clinical Impression: Generalized weakness, Fatigue, Unable to ambulate, UTI (urinary tract infection), Elevated CPK Disposition Disposition: [facility] What to do if you have Problems For any increased pain, shortness of breath, bleeding, nausea or vomiting, chestpain, or any unexpected problems, contact your Primary Care Provider. Call [facility] ([phone]) or report to the closest Emergency Room. Call 911 if necessary. 09/22/242245 <Electronically signed by Alexis Quijano MD> Cosigner Signature (if applicable): CC: Dr. Erica Richardson, DO ~ Signed [facility] Work Phone: 1(192) 843-850906-04-2025 Evaluation note* Diagnosis Onset Date Resolution Status Admit Date Debility acute September 22, 2024 10:45pm Elevated CPK acute September 22 10:45pm Fatigue acute September 22, 2024 10:45pm Generalized weakness acute September 22, 2024 10:45pm Unable to ambulate acute September 222024 10:45pm UTI (urinary tract infection) acute September 22, 2024 10:45pm [facility] Work Phone: 1(930) 554-525306-04-2025 Evaluation note* Diagnosis Onset Date Resolution Status Admit Date Debility acute September 22, 2024 10:45pm Elevated CPK resolved September 22 10:45pm Fatigue resolved September 22, 2024 10:45pm Generalized weakness resolved September 22, 2024 10:45pm Unable to ambulate resolved September 222024 10:45pm UTI (urinary tract infection) resolv ed September 22, 2024 10:45pm [facility] Work Phone: 1(766) 425-868506-04-2025 History and physical note [facility] Medical Records Department [address] [place] [address] H&P Exam - Hospitalist 09/22/24 2244 MR#: [id number] Acct: [id number] Name: LIVEMARIELENAAIDEN Consuelo Rep #:[id number] : 1945 78 From: Aggie Bolton MD PCP: Dr. Erica Richardson, DO Status:ADM IN Location: [place] [address] HPI - General General Date of Admission: [...] history Chronic anemia who presents to the [facility] ED on 09/22/2024 with history of [...] and Rocephin 1 g IV x 1. [facility] Medical History Anxiety and depression Hypoparathyroidism after [...] Neosporin Allergy Unknown Unknown Verified 09/22/24 20:06 (mer-fqj-mwukp)) neomycin (From Neosporin Allergy Unknown Unknown Verified 09/22/24 20:06 (hfc-wtj-fathz)) polymyxin B (From Neosporin Allergy Unknown Unknown Verified 09/22/24 20:06 (qzy-oht-wnerw)) Antihistamines - Alkylamine Allergy PT UNSURE Verified [...] (Auto) 69.5, Lymph % (Auto) 18.8 L, [place] % (Auto) 7.5, Eos % (Auto) 2.9, [...] Clarity Cancelled, Urine pH Cancelled, Ur Specific [place] Cancelled, U Specif Grav (Refrac) Cancelled, Urine [...] Clarity Cloudy, Urine pH 5.0, Ur Specific [place] 1.015, Urine Protein 15 H, Urine Glucose [...] IMPRESSION: No acute intracranial abnormality. Reading Location: [id number] Chest X-Ray 09/22/24 20:55 IMPRESSION: No acute cardiopulmonary abnormalities. Reading Location: [id number] Assessment & Plan Assessment/Plan (1) UTI (urinary tract infection): PLAN: Plan The patient is a 78 y/o F w/ PMHx: HTN, Anxiety and Depression/Mood disorder, Former tobacco use, Former chart reported history EtOH abuse, Hx Frequent falls,Rheumatoid arthritis, Hypothyroidism s/p prior thyroidectomy, GERD, Hx Breast CAunclear type s/p mastectomy in remission, Chart reported history Chronic anemia who presents to the [facility] ED on 09/22/2024 with history of [...] full code. Charges/Coding Visit Charges Inpatient E&M: 85481 Init Hosp L3 09/23/24 0018 Cosigner Signature (if applicable): CC: Dr. Aggie Bolton MD; Dr. Erica Richardson DO~ Signed [facility]06-03-2025 Discharge summary [facility] Medical Records Department [address] [place] [address] Emergency Department Summary 09/22/24 MR#: [id number] Acct: [id number] Name: AIDEN FIELDS Rep #:[id number] : 1945 78 From: [place] Quijano MD [...] 12 hours which is unusual for her. [facility] Medical History Anxiety and depression Hypoparathyroidism [...] Neosporin Allergy Unknown Unknown Verified 09/22/24 20:06 (pbb-fnb-qchad)) neomycin (From Neosporin Allergy Unknown Unknown Verified 09/22/24 20:06 (zke-flp-cupgb)) polymyxin B (From Neosporin Allergy Unknown Unknown Verified 09/22/24 20:06 (une-oym-ccygw)) Antihistamines - Alkylamine Allergy PT UNSURE Verified [...] of 11.6 which I think is nonspecific, cxefqgtpad06.2, hematocrit 39.5, platelet count normal at259. Potassium [...] (Auto) 69.5 Lymph % (Auto) 18.8 L [place] % (Auto) 7.5 Eos % (Auto) 2.9 [...] Cloudy Urine pH Cancelled 5.0 Ur Specific [place] Cancelled 1.015 U Specif Grav (Refrac) Cancelled [...] IMPRESSION: No acute intracranial abnormality. Reading Location: [id number] Chest X-Ray 09/22/24 20:55 IMPRESSION: No acute cardiopulmonary abnormalities. Reading Location: [place] [address] Management Discussion w/another healthcare provider: Hospitalist (Dr. Bolton) Discharge Plan Dx/Rx/DC Orders Clinical Impression: Generalized weakness, Fatigue, Unable to ambulate, UTI (urinary tract infection), Elevated CPK Disposition Disposition: Acute Care Hospital [facility] What to do if you have Problems For any increased pain, shortness of breath, bleeding, nausea or vomiting, chestpain, or any unexpected problems, contact your Primary Care Provider. Call [facility] ([phone]) or report tothe closest Emergency Room. Call 911 if necessary. 09/22/249 Cosigner Signature (if applicable): CC: Dr. Erica Richardson DO ~ Signed [facility]06-03-2025 Radiology Diagnostic study note [facility] Imaging Services [address] [place], [place] [id number] Chest 1 View (Portable) MR#: [id number] Acct: [id number] Name: AIDEN FIELDS Rep #: [id number] : 1945 F 78 From: Gui Mullen MD PCP: Dr. Erica Richardson DO Status: REG ER Study:Chest 1 View (Portable) Date of Exam: 09/22/24 Exam# [id number] Ordering Dr: Alexis Quijano MD PROCEDURE: CHEST 1 VIEW (PORTABLE) 09/22/2024 REASON FOR EXAM: SHORTNESS OF BREATH TECHNIQUE: Frontal view of the chest. COMPARISON: 07/04/2024. FINDINGS: The heart is normal in size. Right chest Port-A-Cath. The lungs are clear. Right humeral plate and screw fixation. Left rib plate and screw fixation. RAD/Chest 1 View (Portable) IMPRESSION: No acute cardiopulmonary abnormalities. Reading Location: [place] [address] CC: Dr. Alexis Quijano MD; Dr. Erica Richardson DO ~ Radio Mechanic Helper: Signed [facility]06-03-2025 Radiology Diagnostic study note [facility] Imaging Services [address] [place], [place] [address] Brain/Head without Contrast MR#: [id number] Acct: [id number] Name: AIDEN FIELDS Rep #: [id number] : 1945 F 78 From: Gui Mullen MD PCP: Dr. Erica Richardson DO Status: REG ER Study:Brain/Head without Contrast Date of Exa m: 09/22/24 Exam# [id number] Ordering Dr: [place] Quijano MD PROCEDURE: BRAIN/HEAD [...] mGy DLP: 897.35 mGycm COMPARISON: 08/20/2023. FINDINGS: Doqccawc-hn-dmqhxg global parenchymal atrophy. Periventricular white matter hypodensity likely representing chronic microvascular ischemia. No evidence of acute hemorrhage or infarction. No extra- axial blood or fluid collections. The paranasal sinuses are clear. The mastoid air cells are well aerated. The calvarial vault and skull base are intact. CT/Brain/Head without Contrast IMPRESSION: No acute intracranial abnormality. Reading Location: [id number] CC: Dr. [place] Quijano MD; Dr. Erica Richardson DO ~ Radio Mechanic Helper: Signed [facility]06-03-2025 Evaluation note* Diagnosis Onset Date Resolution Status Admit Date Elevated CPK acute September 22 10:45pm Fatigue acute September 22, 2024 10:45pm Generalized weakness acute September 22, 2024 10:45pm Unable to ambulate acute September 222024 10:45pm UTI (urinary tract infection) acute September 22, 2024 10:45pm [facility] Work Phone: 1(863) 310-564003-15-2025 Radiology Diagnostic study note [facility] Imaging Services [address] [place], [place] [id number] Chest PA and Lateral MR#: [id number] Acct: [id number] Name: LIVEMARIELENAAIDEN B Rep #: [id number] : 1945 F 78 From: Abhi Carrington DO PCP: Dr. Erica Richardson DO Status: REG ER Study:Chest PA and Lateral Date of Exam: 07/04/24 Exam# [id number] Ordering Dr: Froy Cameron DO PROCEDURE: CHEST [...] Cameron, DO; Dr. Erica Richardson DO ~ Radio Mechanic Helper: Signed [facility]04-30-2024 Discharge summary Author Seb Bautista [facility] August 20, 2023 4:47pm Note Date/Time August 20, 2023 1:0 3pm [facility] Medical Records Department [address] [place] [address] Emergency Department Summary 08/20/23 MR#: [id number] Acct: [id number] Name: LIVEMARIELENAAIDEN Rep #:[id number] : 1945 77 From: Seb Nguyen PCP: [...] Unknown Unknown Verified 08/20/23 12:28 [From Neosporin (ekb-tuh-wztgg)] neomycin Allergy Unknown Unknown Verified 08/20/23 12:28 [From Neosporin (ssh-jhd-jsmfy)] polymyxin B Allergy Unknown Unknown Verified 08/20/23 12:28 [From Neosporin (mpi-ily-njcbm)] Antihistamines - Alkylamine Allergy PT UNSURE Verified [...] Oxygen Delivery Method Room Air Room Air [employer] MDM Narrative Medical decision making narrative: HISTORY [...] History obtained from others: none Consults: none [facility] Narrative: The patient was hemodynamically stable, [...] Discharge home This note was generated with [employer] dictation software. It may contain incorrectwords, spelling, [...] your Primary Care Provider. Call [facility] ([phone]) or report to the closest Emergency Room. Call 911 if necessary. 08/20/23 1647 <Electronically signed by Seb Bautista DO> Cosigner Signature (if applicable): CC: Dr. Erica Richardson DO ~ Signed [facility] Work Phone: 1(783) 702-611601-30-2024 Consult note Author Aryan Harris [facility] May 21, 2023 10:55am Note Date/Time May 21, 2023 1 0:56am [facility] Medical Records Department [address] [place] [address] Counseling Note - Pharmacy 05/21/23 1055 MR#: [id number] Acct: [id number] Name: AIDEN FIELDS Rep #:[id number] : 1945 77 From: Aryan Harris PCP: Dr. Erica Richardson DO Status:ADM IN Y Location: [facility] HQ558-0 Pharmacy [facility] Service has performed discharge medication reconciliation [...] Signature (if applicable): Date CC: ~ Signed [facility] Work Phone: 1(567) 867-111701-30-2024 Discharge summary Author Froy Velázquez [facility] May 21, 2023 10:34am Note Date/Time May 21, 2023 1 0:31am [facility] Medical Records Department [address] [place] [address] Discharge Summary 05/21/23 1030 MR#: [id number] Acct: [id number] Name: AIDEN FIELDS Rep #:[id number] : 1945 77 From: Froy Velázquez DO PCP: Dr. Erica Richardson DO Status:ADM IN Location: [place] [id number] Providers Date of Admission: 05/19/23 Primary Care [...] with rheumatology as needed. DC home with [facility]. Medications at Discharge Home Medications potassium [...] Health Service Charges/Coding Visit Charges Inpatient E&M: 06697 Disch Hosp >30min 05/21/23 1034 <Electronically signed by Froy Velázquez DO> Cosigner Signature (if applicable): CC: Dr. Froy Velázquez DO; Dr. Erica Richardson DO~ Signed [facility] Work Phone: 1(315) 924-142101-30-2024 Progress note Author Froy Velázquez [facility] May 21, 2023 10:30am Note Date/Time May 21, 2023 8 :27am [facility] Medical Records Department [address] [place] [address] Progress Note - Hospitalist 05/21/23 0823 MR#: [id number] Acct: [id number] Name: AIDEN FIELDS Rep #:[id number] : 1945 77 From: Froy Velázquez DO PCP: Dr. Erica Richardson, DO Status:ADM IN Location: MS3 WS876-8 Reason for Visit Reason for Visit: Diagnoses [...] with rheumatology as needed. DC home with [facility]. 05/21/23 1030 <Electronically signed by Froy Jopperi DO> Cosigner Signature (if applicable): CC: ~ Signed [facility] Work Phone: 1(386) 927-635201-29-2024 Progress note Author Froy Velázquez [facility] May 20, 2023 2:08pm Note Date/Time May 20, 2023 9 :07am [facility] Medical Records Department [address] [place] [address] Progress Note - Hospitalist 05/20/23 0900 MR#: [id number] Acct: [id number] Name: AIDEN FIELDS Rep #:[id number] : 1945 77 From: Froy Velázquez DO PCP: Dr. Erica Richardson, Status:ADM IN Location: [facility] [id number] Subjective Subjective Feels well. No issues overnight. [...] 76.9 H, Lymph % (Auto) 9.6 L, [place] % (Auto) 10.8 H, Eos % (Auto) [...] Hand Blood Culture - Preliminary GNR lactose demonstrator knitting 05/19/23 00:00 Urine, Clean Catch Legionella Antigen [...] prophylaxis: Heparin. Charges/Coding Visit Charges Inpatient E&M: 97197 Subs Hosp L2 05/20/23 9245 <Electronically signed by Froy Velázquez DO> Cosigner Signature (if applicable): CC: ~ Signed [facility] Work Phone: 1(488) 108-756801-28-2024 Progress note Author Vernon Alcantaraabdirahman [facility] May 19, 2023 8:02am Note Date/Time May 19, 2023 7 :06am [facility] Medical Records Department [address] [place] [address] Progress Note 05/19/23 0706 MR#: [id number] Acct: [id number] Name: AIDEN FIELDS Rep #:[id number] : 1945 77 From: Vernon Osman MD PCP: Dr. Erica Richardson, DO Status:ADM [facility] Note Patient is a 77-year-old lady [...] Cosigner Signature (if applicable): CC: ~ Signed [facility] Work Phone: 1(149) 322-933101-28-2024 Discharge summary Author Jorge Cardona [facility] May 19, 2023 2:16am Note Date/Time May 19, 2023 1 2:30am [facility] Medical Records Department [address] [place] [address] Emergency Department Summary 05/19/23 MR#: [id number] Acct: [id number] Name: AIDEN FIELDS Rep #:[id number] : 1945 77 From: Jorge Cardona MD [...] hypoxia due to rhinovirus.) Recent Illness/Hospitalization: No [facility] Medical History (Updated 05/19/23 @ 02:16 by [...] Unknown Unknown Verified 05/18/23 23:29 [From Neosporin (nnn-ikz-xmtno)] neomycin Allergy Unknown Unknown Verified 05/18/23 23:29 [From Neosporin (qwl-etk-qlorv)] polymyxin B Allergy Unknown Unknown Verified 05/18/23 23:29 [From Neosporin (edv-owo-nnwpf)] Antihistamines - Alkylamine Allergy PT UNSURE Verified [...] 89.8 H Lymph % (Auto) 6.3 L [place] % (Auto) 2.4 Eos % (Auto) 0.3 [...] Clarity Cloudy Urine pH 6.0 Ur Specific [place] 1.010 Urine Protein 100 H Urine Glucose [...] follows: Interpretation: Sinus Tachycardia (Rate is 111. DC interval is 114 ms. Cures duration 70 ms. QT duration is 298 ms. [place] is normal. Computer is reading ST-T wave [...] with treatment for hypertension), Discussing w/Patient &/or Family/Feeder Loader, Discussing w/Consultants and Arranging Admission or Transfer Discharge Plan Dx/Rx/DC Orders Clinical Impression: Acute hypoxic respiratory failure, Pyuria, SIRS (systemic inflammatory responsesyndrome), Encephalopathy due to infection, Ketosis, Acute hypotension, Creatinine elevation Disposition Disposition: [facility] What to do if you have Problems For any increased pain, shortness of breath, bleeding, nausea or vomiting, chestpain, or any unexpected problems, contact your Primary Care Provider. Call [employer] [facility] ([phone]) or report to the closest Emergency Room. Call 911 if necessary. 05/19/23215 <Electronically signed by Jorge Cardona MD> Cosigner Signature (if applicable): CC: Dr. Erica Richardson, DO ~ Signed [facility] Work Phone: 1(751) 805-358701-28-2024 History and physical note Author Aggie Bolton [facility] May 19, 2023 1:45am Note Date/Time May 19, 2023 1 :39am [facility] Medical Records Department [address] [place] [address] H&P Exam - Hospitalist 05/19/23 0135 MR#: [id number] Acct: [id number] Name: AIDEN FIELDS Rep #:[id number] : 1945 77 From: Aggie Bolton MD [...] of prior records who presents to the [facility] ED on 05/19/23 with significant encephalopathy with [...] and azithromycin 500 mg IV x 1. [facility] Medical History (Updated 05/19/23 @ 01:44 [...] Unknown Unknown Verified 05/18/23 23:29 [From Neosporin (ssa-qie-fkmzr)] neomycin Allergy Unknown Unknown Verified 05/18/23 23:29 [From Neosporin (ekl-yxw-ulokl)] polymyxin B Allergy Unknown Unknown Verified 05/18/23 23:29 [From Neosporin (gfs-smr-mfskk)] Antihistamines - Alkylamine Allergy PT UNSURE Verified [...] 89.8 H, Lymph % (Auto) 6.3 L, [place] % (Auto) 2.4, Eos % (Auto) 0.3, [...] Urine Clarity Cloudy, Urine pH6.0, Ur Specific [place] 1.010, Urine Protein 100 H, Urine Glucose [...] 0:46 EST Reading Location ID and State: [facility] / [place] Tel , Service support , Assessment & Plan Assessment/Plan (1) Encephalopathy due to infection: PLAN: Plan The patient is a 74 y/o F w/ PMHx: Dementia unclear type with unclear behavioraldisturbance history, Chronic anemia, Hx Breast CA s/p mastectomy, HTN, HLD, Rheumatoid arthritis, Hypothyroidism, Anxiety and Depression, EtOH abuse/Polysubstance dependency including BZD/opiates per review of prior recordswho presents to the [facility] ED on 05/19/23 with significant encephalopathy with [...] prophylaxis: Heparin. Charges/Coding Visit Charges Inpatient E&M: 77877 Init Hosp L3 05/19/23 0145 <Electronically signed by Aggie Bolton MD> Cosigner Signature (if applicable): CC: Dr. Aggie Bolton MD; Dr. Erica Richardson, DO~ Signed [facility] Work Phone: 1(267) 905-624701-28-2024 Discharge summary Author Jorge Cardona [facility] May 19, 2023 2:16am Note Date/Time May 19, 2023 1 2:30am [facility] Medical Records Department [address] [place] [address] Emergency Department Summary 05/19/23 MR#: [id number] Acct: [id number] Name: AIDEN FIELDS Rep #:[id number] : 1945 77 From: Jorge Cardona MD [...] hypoxia due to rhinovirus.) Recent Illness/Hospitalization: No [facility] Medical History (Updated 05/19/23 @ 02:16 by [...] Unknown Unknown Verified 05/18/23 23:29 [From Neosporin (yfr-dcs-kyfuv)] neomycin Allergy Unknown Unknown Verified 05/18/23 23:29 [From Neosporin (suj-kdc-ojyoo)] polymyxin B Allergy Unknown Unknown Verified 05/18/23 23:29 [From Neosporin (qgk-iuq-okfeu)] Antihistamines - Alkylamine Allergy PT UNSURE Verified [...] 89.8 H Lymph % (Auto) 6.3 L [place] % (Auto) 2.4 Eos % (Auto) 0.3 [...] Clarity Cloudy Urine pH 6.0 Ur Specific [place] 1.010 Urine Protein 100 H Urine Glucose [...] 0:46 EST Reading Location ID and State: [facility] / [place] Tel , Service support , Radiology report was reviewed. Rhythm Strip Rhythm Strip: Sinus Tach Rate: 119 EKG Initial EKG: Attestation: I personally reviewed and interpreted this EKG as follows: Interpretation: Sinus Tachycardia (Rate is 111. DC interval is 114 ms. Cures duration 70 ms. QT duration is 298 ms. [place] is normal. Computer is reading ST-T wave [...] with treatment for hypertension), Discussing w/Patient &/or Family/Feeder Loader, Discussing w/Consultants and Arranging Admission or Transfer Discharge Plan Dx/Rx/DC Orders Clinical Impression: Acute hypoxic respiratory failure, Pyuria, SIRS (systemic inflammatory responsesyndrome), Encephalopathy due to infection, Ketosis, Acute hypotension, Creatinine elevation Disposition Disposition: Acute Care Hospital [facility] What to do if you have Problems For any increased pain, shortness of breath, bleeding, nausea or vomiting, chestpain, or any unexpected problems, contact your Primary Care Provider. Call [facility] ([phone]) or report to the closest Emergency Room. Call 911 if necessary. 05/19/23 0216 <Electronically signed by Jorge Cardona MD> Cosigner Signature (if applicable): CC: Dr. Erica Richardson DO ~ Signed [facility] Work Phone: 1(658) 822-912212-12-2023 NoteHNO ID: [id number] Author: Radha Suarez RN Service: ? Author Type: Registered Nurse Type: Progress Notes Filed: 04/02/2023 2:59 PM Note Text: Patient is here for IVAD port flush per [facility] [place] protocol. IVAD is located in right upper chest. Site cleansed with Chloraprep IVAD accessed with a #20 gauge 3/4 non-coring Gripper needle Blood Return: Good Flushed with: 20 ml Normal Saline and 5 ml Heparin Lock Flush Non-coring needle removed. Paper tape applied to puncture site. Port site negative for redness, edema or tenderness. Patient tolerated procedure well.[facility]08-04-2023 Miscellaneous Notes* Telephone Encounter - Melissa [...] as discussed during visit. [facility] History and physical note Author Bandar Chanel [facility] November 22, 2022 7:40pm Note Date/Time November 22, 2022 6:0 8pm [facility] Medical Records Department [address] [place] [address] H&P Exam - Hospitalist 11/22/22 1804 MR#: [id number] Acct: [id number] Name: AIDEN FIELDS Rep #:[id number] : 1945 77 From: Bandar Mckenna PCP: Dr. Erica Richardson, DO Status:ADM MAXIME Location: [place] [address] HPI - General General Date of Admission: [...] likely due to prior radiation. [facility] Medical History Alcohol abuse Alcohol intoxication Anemia [...] Unknown Unknown Verified 11/22/22 12:44 [From Neosporin (quz-cnu-vnwej)] neomycin Allergy Unknown Unknown Verified 11/22/22 12:44 [From Neosporin (jwn-yxp-imbix)] polymyxin B Allergy Unknown Unknown Verified 11/22/22 12:44 [From Neosporin (zpb-icl-fzqpg)] Antihistamines - Alkylamine Allergy PT UNSURE Verified [...] (Auto) 64.5, Lymph % (Auto) 15.4 L, [place] % (Auto) 12.3 H, Eos % (Auto) [...] shock if needed Total time spent in gwfg-zr-szib encounter in discussion of advanced directive 17 [...] (Auto) 64.5, Lymph % (Auto) 15.4 L, [place] % (Auto) 12.3 H, Eos % (Auto) [...] EDT , Charges/Coding Visit Charges Inpatient E&M: 42182 Init Hosp L3 Procedures Hospitalists Procedures: 78676 Advncd Care Plan 30 Min 11/22/221939 <Electronically signed by Bandar Chanel MD> Cosigner Signature (if applicable): CC: Dr. Erica Richardson DO; Dr. Bandar Chanel MD~ Signed [facility] Work Phone: 1(995) 236-952608-03-2023 Discharge summary Author Katie Randle [facility] November 22, 2022 4:54pm Note Date/Time November 22, 2022 1:0 9pm [facility] Medical Records Department [address] [place] [address] Emergency Department Summary 11/22/22 MR#: [id number] Acct: [id number] Name: AIDEN FIELDS Rep #:[id number] : 1945 77 From: Katie Nguyen PCP: [...] other complaints or concerns at this time. [facility] Medical History Alcohol abuse Alcohol intoxication [...] Unknown Unknown Verified 11/22/22 12:44 [From Neosporin (avt-ahr-ufdhy)] neomycin Allergy Unknown Unknown Verified 11/22/22 12:44 [From Neosporin (yae-lbk-qpssb)] polymyxin B Allergy Unknown Unknown Verified 11/22/22 12:44 [From Neosporin (fdz-fva-qnxez)] Antihistamines - Alkylamine Allergy PT UNSURE Verified [...] (Auto) 64.5 Lymph % (Auto) 15.4 L [place] % (Auto) 12.3 H Eos % (Auto) [...] Provider] - Disposition Disposition: Acute Care Hospital [facility] What to do if you have Problems For any increased pain, shortness of breath, bleeding, nausea or vomiting, chestpain, or any unexpected problems, contact your Primary Care Provider. Call [facility] ([phone]) or report to the closest Emergency Room. Call 911 if necessary. 11/22/22 1654 <Electronically signed by Katie Randle DO> Cosigner Signature (if applicable): CC: Dr. Erica Richardson DO ~ Signed [facility] Work Phone: 1(478) 194-496008-03-2023 Discharge summary Author Katie [facility] November 22, 2022 4:54pm Note Date/Time November 22, 2022 1:0 9pm [facility] Medical Records Department [address] [place] [address] Emergency Department Summary 11/22/22 MR#: [id number] Acct: [id number] Name: AIDEN FIELDS Rep #:[id number] : 1945 77 From: Katie Nguyen PCP: [...] other complaints or concerns at this time. [facility] Medical History Alcohol abuse Alcohol intoxication [...] Unknown Unknown Verified 11/22/22 12:44 [From Neosporin (zem-fsa-hdbdd)] neomycin Allergy Unknown Unknown Verified 11/22/22 12:44 [From Neosporin (krg-uug-uxkda)] polymyxin B Allergy Unknown Unknown Verified 11/22/22 12:44 [From Neosporin (bdf-ccr-grzvs)] Antihistamines - Alkylamine Allergy PT UNSURE Verified [...] (Auto) 64.5 Lymph % (Auto) 15.4 L [place] % (Auto) 12.3 H Eos % (Auto) [...] Provider] - Disposition Disposition: Acute Care Hospital [facility] What to do if you have Problems For any increased pain, shortness of breath, bleeding, nausea or vomiting, chestpain, or any unexpected problems, contact your Primary Care Provider. Call [facility] ([phone]) or report to the closest Emergency Room. Call 911 if necessary. 11/22/22 1654 <Electronically signed by Katie Randle DO> Cosigner Signature (if applicable): CC: Dr. Erica Richardson DO ~ Signed [facility] Work Phone: 1(696) 567-964508-03-2023 History of Present illness Narrative* Katarzyna Nance, [...] 22, 2022 12:08 PM documented in this encounterEast [facility] Hospital08-03-2023 NoteHNO ID: [id number] Author: Katrazyna Nance RT(R) Service: Radiology Author Type: Technologist [...] Katarzyna Nance, RT(R) November 22, 2022 12:08 [facility]08-03-2023 NoteHNO ID: [id number] Author: Eliel Blount APRN.[employer]ER Service: ? Author Type: Nurse Practitioner Type: [...] - Alkylamine, Benadryl [Diphenhydramine Hcl], and Neosporin [Lykgokoc-Tllgvoaadh-Pzovwdfdz] MEDICATIONS oxyCODONE IR (ROXICODONE) 5 mg immediate [...] breath, wheezing and stridor. (more content not included)...[facility]08-03-2023 History of Present illness Narrative* Eliel Blount APRN.[facility] - 11/22/2022 11:57 AM EDT Subjective HPI [...] - Alkylamine, Benadryl [Diphenhydramine Hcl], and Neosporin [Lblxvbng-Lgrkbobdnm-Kkwweqhbe] MEDICATIONS oxyCODONE IR (ROXICODONE) 5 mg immediate [...] agrees with plan of care. Eliel Blount APRN.[employer]ER documented in this encounterEast [facility] Hospital03-24-2023 History of Present illness Narrative* John Erazo RN - 07/13/2022 7:40 AM EDT Patient is here for IVAD port flush per [facility] [place] protocol. IVAD is located in right upper chest. Site cleansed with Chloraprep IVAD accessed with a #20 gauge 3/4 non-coring Gripper needle Blood Return: Good Flushed with: 20 ml Normal Saline and 5 ml Heparin Lock Flush Non-coring needle removed. Paper tape applied to puncture site. Port site negative for redness, edema or tenderness. Patient tolerated procedure well. documented in this encounterEast [facility] Hospital03-13-[address] Ly [facility] July 02, 2022 8:37pm Note Date/Time July 02, 2022 5:2 4pm [facility] Medical Records Department [address] [place] [address] Emergency Department Summary 07/02/22 MR#: [id number] Acct: [id number] Name: AIDEN FEILDS Rep #:[id number] : 1945 76 From: Sim Ly MD PCP: Dr. 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 [facility] Medical History Alcohol abuse Alcohol intoxication [...] Unknown Unknown Verified 07/02/22 16:16 [From Neosporin (dth-xzq-cajea)] neomycin Allergy Unknown Unknown Verified 07/02/22 16:16 [From Neosporin (gzn-hej-cnkqa)] polymyxin B Allergy Unknown Unknown Verified 07/02/22 16:16 [From Neosporin (ffg-pcn-mjfsy)] Antihistamines - Alkylamine Allergy PT UNSURE Verified [...] She does have an appointment with her manager online already in about 3 days. She was [...] removal Activity Restrictions/Additional Instructions: Follow-up with your manager online as scheduled. Disposition Disposition: Home, Self Care What to do if you have Problems For any increased pain, shortness of breath, bleeding, nausea or vomiting, chestpain, or any unexpected problems, contact your Primary Care Provider. Call [facility] ([phone]) or report to the closest Emergency Room. Call 911 if necessary. 07/02/222036 <Electronically signed by Sim Ly MD> Cosigner Signature (if applicable): CC: Dr. Erica Richardson DO ~ Signed [facility] Work Phone: [phone]) 530-840902-24-2023 History of Present illness Narrative* Radha Suarez RN - 06/15/2022 2:42 PM EST Patient is here for IVAD port flush per Nursing [place] protocol. IVAD is located in right upper chest. Site cleansed with Chloraprep IVAD accessed with a #20 gauge 3/4 non-coring Gripper needle Blood Return: Good Flushed with: 20 ml Normal Saline and 5 ml Heparin Lock Flush Non-coring needle removed. Paper tape applied to puncture site. Port site negative for redness, edema or tenderness. Patient tolerated procedure well. [facility] History of Present illness Narrative* Radha Suarez RN - 04/25/2022 1:35 PM EST Patient is here for IVAD port flush per [facility] [place] protocol. IVAD is located in right upper chest. Site cleansed with Chloraprep IVAD accessed with a #20 gauge 3/4 non-coring Gripper needle Blood Return: Good Flushed with: 20 ml Normal Saline and 5 ml Heparin Lock Flush Non-coring needle removed. Paper tape applied to puncture site. Port site negative for redness, edema or tenderness. Patient tolerated procedure well. documented in this encounter[facility]09-[facility]-2022 [facility] History of Present illness Narrative* All Tsang MD - 01/09/2022 1:15 PM EDT NEUROSURGERY FOLLOW UP OFFICE NOTE Dr. All Tsang MD, [facility] Date of visit: January 09, 2022 Patient Name: Ms.Barbara John Fields Date of : 1945 Current Age: [age] year old Sex: female MRN/E# [id number] Last Office Visit: 11/03/2021 Chief Complaint: Patient presents with: Established Patient SUBJECTIVE: The patient presents as a follow-up with imaging (MRI B) for evaluation. This is a 76-year-old female with a history of breast cancer and melanoma who was seen in consult at [facility] on 10/07/[address] Delgado after a [...] in follow-up on 11/03/2021 by Sherice Rosenberg APRN.KILN PACKER with CT brain prompting. She reported that she was overall doing well and denied headache, visual changes, speech deficits, seizure activity. She was residing in a [facility] and was working with physical therapy given [...] symptoms. This note was partially generated using [employer] voice recognition system, and there may be some incorrect words, spellings, and punctuation that were not noted in checking the note before saving. documented in this encounterEast [facility]09-[facility]22 History of Present illness Narrative* Erica [...] 04, 2022 2:02 PM documented in this encounterEast [facility]09-14-2022 Miscellaneous Notes* Telephone Encounter - Tsering Castillo - 01/03/2022 12:19 PM EDT Patient has been scheduled for port access at 1:30 pm tomorrow and I did let patient's nurse at [facility] know this, she confirmed patient's arrival time. Tsering Castillo * Telephone Encounter - KATIE Rivas - 01/03/2022 10:55 AM EDT Pt would like to use port for appt on 01/04/22 for MRI @ 1:40pm Please call pt to let them know what time to come in please documented in this encounterEast [facility]07-15-2022 [facility] History of Present illness Narrative* Denys Bolden PA-C - 11/02/2021 3:17 PM EDT Images from the original note were not included. Trauma Clinic Note SERVICE DATE: 11/02/2021 Trauma Service Pager: For questions or concerns Mon-Fri 6a-5p please page [phone]. After 5pm and on Weekends and Holidays, please page [phone] if in ICU or [phone] if on RNF. SUBJECTIVE: Patient presents to the trauma clinic with her daughter. She came from her retirement facility. She is here for rib plating [...] GLF on ASA on 10/06/2021 (transfer from [place]) Traumatic Injuries: 1. Right frontal IPH 2. [...] November 02, 2021 TIME: 3:26 PM Pager: [phone] (text page) documented in this encounterEast [facility] Hospital07-14-2022 [facility] Instructions* Patient Instructions* Denys Bolden PA-C [...] another 2 viewchest x-ray documented in this encounterEast [facility]07-14-2022 History of Present illness Narrative* Monik [...] 02, 2021 12:30 PM documented in this encounterEast [facility]07-11-2022 History of Present illness Narrative* RT [...] 30, 2021 3:21 PM documented in this encounterEast [facility]07-01-2022 Miscellaneous Notes* Telephone Encounter - Eva Dee Pss - 10/20/2021 9:45 AM EDT Left message with day and time of scheduled follow up appointments. Eva Dee Pss documented in this encounterEast [facility] Hospital06-28-2022 [facility]25-20[facility]-2022 [facility]22 [facility]23-20[facility] Note [facility]06-23-2022 Miscellaneous Notes* Telephone Encounter - Aiden Alanis LPN - 10/12/2021 4:30 PM EDT Pt's Sister Sami(a psych nurse) from [place] called to update Dr Santos or Stalin [...] psych eval. Sami can be reached at [phone] . I called and notified Stalin Grimaldo PAC who isgoing to talk to pt and the sister that is POA that is at the hospital now. BChapman SHELLY documented in this encounterEast [facility] Hospital06-23-2022 [facility]06-21-2022 [facility]06[facility]-2022 [facility]20[facility] Note [facility]06-20-2022 [facility] 10-09-2021 [facility]-20-2022 [facility]06-[facility]-2022 NoteHNO ID: [id number] Author: Medhat Silveira RN Service: ? Author Type: Registered Nurse Type: Nursing Progress Note Filed: 10/09/2021 2:22 AM Note Text: Pt up to bsc with assist of 1 unable to void will bladder [facility]06-19-2022 [facility]06-19-2022 [facility]06-19-2022 [facility]06-18-2022 Note [facility]03-23-2022 History of Present illness Narrative* Nicho [...] ROUTINE Nicho Johnson MD documented in this encounterEast [facility] Hospital11-26-2021 History of Present illness Narrative* Katarzyna [...] 17, 2021 2:30 PM documented in this encounterEast [facility] Hospital03-28-2013 History of Past illness Narrative* Problem Noted Date Resolved Date 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 10/03/2012 Breast cancer 07/03/2012 02/11/2013 documented as of this encounter (statuses as of 07/17/2021) [facility] History of Past illness Narrative* Problem Noted Date Resolved Date 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 10/03/2012 Breast cancer 07/03/2012 02/11/2013 documented as of this encounter (statuses as of 08/01/2021) [facility] of Past illness Narrative* Problem Noted Date Resolved Date 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 10/03/2012 Breast cancer 07/03/2012 02/11/2013 documented as of this encounter (statuses as of 08/29/2021) [address]28-2013 History of Past illness Narrative* Problem Noted Date Resolved Date 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 10/03/2012 Breast cancer 07/03/2012 02/11/2013 documented as of this encounter (statuses as of 10/03/2021) [address]28-2013 History of Past illness Narrative* Problem Noted Date Resolved Date 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 10/03/2012 Breast cancer 07/03/2012 02/11/2013 documented as of this encounter (statuses as of 10/11/2021) [address]28-2013 History of Past illness Narrative* Problem Noted Date Resolved Date 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 10/03/2012 Breast cancer 07/03/2012 02/11/2013 documented as of this encounter (statuses as of 10/12/2021) [place] [id number] History of Past illness Narrative* Problem Noted Date Resolved Date 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 10/03/2012 Breast cancer 07/03/2012 02/11/2013 documented as of this encounter (statuses as of 10/20/2021) [place] [id number] History of Past illness Narrative* Problem Noted Date Resolved Date 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 10/03/2012 Breast cancer 07/03/2012 02/11/2013 documented as of this encounter (statuses as of 10/31/2021) [place] [id number] History of Past illness Narrative* Problem Noted Date Resolved Date 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 10/03/2012 Breast cancer 07/03/2012 02/11/2013 documented as of this encounter (statuses as of 11/02/2021) [place] [id number] History of Past illness Narrative* Problem Noted Date Resolved Date 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 10/03/2012 Breast cancer 07/03/2012 02/11/2013 documented as of this encounter (statuses as of 11/03/2021) [place] [id number] History of Past illness Narrative* Problem Noted Date Resolved Date 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 10/03/2012 Breast cancer 07/03/2012 02/11/2013 documented as of this encounter (statuses as of 01/03/2022) [facility] illness Narrative* Problem Noted Date Resolved Date 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 10/03/2012 Breast cancer 07/03/2012 02/11/2013 documented as of this encounter (statuses as of 01/04/2022) [place] [id number] History of Past illness Narrative* Problem Noted Date Resolved Date 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 10/03/2012 Breast cancer 07/03/2012 02/11/2013 documented as of this encounter (statuses as of 01/05/2022) [place] [id number] History of Past illness Narrative* Problem Noted Date Resolved Date 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 10/03/2012 Breast cancer 07/03/2012 02/11/2013 documented as of this encounter (statuses as of 01/09/2022) [place] [id number] History of Past illness Narrative* Problem Noted Date Resolved Date 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 10/03/2012 Breast cancer 07/03/2012 02/11/2013 documented as of this encounter (statuses as of 03/28/2022) [place] [id number] History of Past illness Narrative* Problem Noted Date Resolved Date 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 10/03/2012 Breast cancer 07/03/2012 02/11/2013 documented as of this encounter (statuses as of 04/27/2022) [place] [id number] History of Past illness Narrative* Problem Noted Date Resolved Date 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 10/03/2012 Breast cancer 07/03/2012 02/11/2013 documented as of this encounter (statuses as of 06/15/2022) [place] [id number] History of Past illness Narrative* Problem Noted Date Resolved Date 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 10/03/2012 Breast cancer 07/03/2012 02/11/2013 documented as of this encounter (statuses as of 07/13/2022) [place] [id number] History of Past illness Narrative* Problem Noted Date Resolved Date 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 10/03/2012 Breast cancer 07/03/2012 02/11/2013 documented as of this encounter (statuses as of 08/10/2022) [address]28-2013 History of Past illness Narrative* Problem Noted Date Diagnosed Date Resolved Date 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 10/03/2012 Breast cancer 07/03/2012 02/11/2013 documented as of this encounter (statuses as of 11/22/2022) [place] [id number] History of Past illness Narrative* Problem Noted Date Diagnosed Date Resolved Date 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 10/03/2012 Breast cancer 07/03/2012 02/11/2013 documented as of this encounter (statuses as of 11/24/2022) [address]28-2013 History of Past illness Narrative* Problem Noted Date Diagnosed Date Resolved Date 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 10/03/2012 Breast cancer 07/03/2012 02/11/2013 documented as of this encounter (statuses as of 08/06/2023) [facility] complaint+Reason for visit Narrative* Chief Complaint LABS/MANDEEP 1 Y FU 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 USP LABWORK Reason for Visit Hypoparathyroidism a fter procedure Hypothyroidism [facility] Work Phone: Chief complaint+Reason for visit Narrative* Chief Complaint LABS/MANDEEP 1 Y FU 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 USP LABWORK USP LABWORK Reason for Visit Hypoparathyroidism a fter procedure Hypothyroidism [facility] Work Phone: Chief complaint+Reason for visit Narrative* Chief Complaint 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 USP LABWORK USP LABWORK USP LABWORK LAB WORK USP LABWORK USP LAB WORK [facility] Work Phone: Chief complaint+Reason for visit Narrative* Chief Complaint 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 USP LABWORK USP LABWORK USP LABWORK LAB WORK USP LABWORK LAB WORK USP LABWORK USP LAB WORK LABWORK [facility] Work Phone: Chief complaint+Reason for visit Narrative* Chief Complaint 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 USP LABWORK USP LABWORK USP LABWORK LAB WORK USP LABWORK LAB WORK USP LABWORK USP LAB WORK USP LABWORK LABWORK USP LAB WORK [facility] Work Phone: Chief complaint+Reason for visit Narrative* Chief Complaint 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 USP LABWORK USP LABWORK USP LABWORK LAB WORK USP LABWORK LAB WORK USP LABWORK USP LAB WORK USP LABWORK USP LABWORK LABWORK USP LAB WORK [facility] Work Phone: Chief complaint+Reason for visit Narrative* Chief Complaint 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 USP LABWORK USP LABWORK USP LABWORK LAB WORK USP LABWORK LAB WORK USP LABWORK USP LAB WORK USP LABWORK USP LABWORK LABWORK USP LAB WORK USP LAB WORK [facility] Work Phone: Chief complaint+Reason for visit Narrative* Chief Complaint 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 USP LABWORK USP LABWORK USP LABWORK LAB WORK USP LABWORK LAB WORK USP LABWORK USP LAB WORK USP LABWORK USP LABWORK LABWORK USP LAB WORK USP LAB WORK [facility] Work Phone: Chief complaint+Reason for visit Narrative* Chief Complaint 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 USP LABWORK USP LABWORK USP LABWORK LAB WORK USP LABWORK LAB WORK USP LABWORK USP LAB WORK USP LABWORK USP LABWORK LABWORK USP LAB WORK LABWORK USP LAB WORK [facility] Work Phone: Chief complaint+Reason for visit Narrative* Chief Complaint 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 USP LABWORK USP LABWORK USP LABWORK LAB WORK USP LABWORK LAB WORK USP LABWORK USP LAB WORK USP LABWORK USP LABWORK LABWORK USP LAB WORK LABWORK USP LAB WORK FALL USP LABWORK USP LABWORK [facility] Work Phone: Chitr complaint+Reason for visit Narrative* Chief Complaint 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 USP LABWORK USP LABWORK USP LABWORK LAB WORK USP LABWORK LAB WORK USP LABWORK USP LAB WORK USP LABWORK USP LABWORK LABWORK USP LAB WORK LABWORK USP LAB WORK FALL USP LABWORK USP LABWORK USP LABWORK USP LAB WORK [facility] Work Phone: chief complaint+Reason for visit Narrative* Chief Complaint 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 USP LABWORK USP LABWORK USP LABWORK LAB WORK USP LABWORK LAB WORK USP LABWORK USP LAB WORK USP LABWORK USP LABWORK LABWORK USP LAB WORK LABWORK USP LAB WORK LABWORK FALL USP LABWORK USP LABWORK USP LABWORK USP LAB WORK [facility] Work Phone: Discharge summary Author James Lamar [facility] November 23, 2022 12:54pm Note Date/Time November 23, 2022 12: 44pm [facility] Medical Records Department [address] [place] [id number] Instructions for Home/Discharge Instructions 11/23/22 1241 MR#: [id number] Acct: [id number] Name: AIDEN FIELDS Rep #:[id number] : 1945 77 From: James Lamar DO [...] DO; Dr. Bandar Chanel MD ~ Signed [facility] Work Phone: Evaluation note* Diagnosis Otalgia, right- Primary Vertigo Dizziness and giddiness URI, acute Acute upper respiratory infections of unspecified site [facility]* Diagnosis Malignant neoplasm of left breast in female, estrogen receptor positive, unspecified site of breast (HCC)- Primary [facility]* Diagnosis Onset Date Resolution Status Hypoparathyroidism after procedure acute Hypothyroidism acute [facility] Work Phone: Evaluation note* Diagnosis Malignant neoplasm of left breast in female, estrogen receptor positive, unspecified site of breast (HCC)- Primary [facility]* Diagnosis SDH (subdural hematoma) (HCC)- Primary Subdural hemorrhage documented in this encounter [facility] note* Diagnosis SDH (subdural hematoma) (HCC) Subdural hemorrhage documented in this encounter [facility] note* Diagnosis Closed fracture of multiple ribs with flail chest with routine healing, subsequent encounter- Primary documented in this encounter [facility] note* Diagnosis Closed fracture of multiple ribs of left side, initial encounter Lung laceration, subsequent encounter documented in this encounter [facility] noteNo assessment information availableWKindred Hospital [facility] Work Phone: Evaluation note* Diagnosis Malignant neoplasm of left breast in female, estrogen receptor positive, unspecified site of breast (HCC)- Primary documented in this encounter [facility] note* Diagnosis SDH (subdural hematoma) (HCC) Subdural hemorrhage Cerebral hemorrhage (HCC) Intracerebral hemorrhage documented in this encounter [facility] note* Diagnosis SDH (subdural hematoma)- Primary Subdural hemorrhage Cerebral hemorrhage (HCC) Intracerebral hemorrhage documented in this encounter [facility] note* Diagnosis Malignant neoplasm of left breast in female, estrogen receptor positive, unspecified site of breast (HCC)- Primary documented in this encounter [facility] note* Diagnosis Malignant neoplasm of left breast in female, estrogen receptor positive, unspecified site of breast (HCC)- Primary documented in this encounter [facility] note* Diagnosis Onset Date Resolution Status Cough acute Hypoxia [facility] Work Phone: Evaluation note* Diagnosis Acute cough- Primary SOB (shortness of breath) Shortness of breath Suspected COVID-19 virus infection documented in this encounter [facility] note* Diagnosis Onset Date Resolution Status Cough acute Dyspnea on exertion acute Hypoxia acute [facility] Work Phone: Evaluation note* Diagnosis Onset Date Resolution Status Acute hypotension acute Acute hypoxic respiratory failure acute Creatinine elevation acute Encephalopathy due to infection acute Ketosis acute Pyuria acute SIRS (systemic inflammatory response syndrome) [facility] Work Phone: Evaluation note* Diagnosis History of breast cancer- Primary Personal history of malignant neoplasm of breast documented in this encounter [facility] note* Diagnosis Onset Date Resolution Status Acute hypotension resolved Creatinine elevation resolve d Encephalopathy due to infection resolved Ketosis resolved Pyuria resolved SIRS (systemic inflammatory response syndrome) resolved [facility] Work Phone: Evaluation note* Diagnosis History of breast cancer- Primary Personal history of malignant neoplasm of breast [facility]* Diagnosis Pre-operative examination- Primary Preoperative [...] encounter Acute cough documented in this encounter [facility] note* Diagnosis Pre-operative examination- Primary Preoperative examination, [...] arm, subsequent encounter documented [facility] this encounter [facility] Author Aggie Bolton [facility] May 19, 2023 1:45am Note Date/Time May 19, 2023 1 :39am [facility] Medical Records Department [address] [place] [address] H&P Exam - Hospitalist 05/19/23 0135 MR#: [id number] Acct: [id number] Name: AIDEN FIELDS Rep #:[id number] : 1945 77 From: Aggie Bolton MD [...] of prior records who presents to the [facility] ED on 05/19/23 with significant encephalopathy with [...] 500 mg IV x 1. [facility] Medical History (Updated 05/19/23 @ 01:44 by [...] Unknown Unknown Verified 05/18/23 23:29 [From Neosporin ([id number])] neomycin Allergy Unknown Unknown Verified 05/18/23 23:29 [From Neosporin ([id number]-pbg-kkypl)] polymyxin B Allergy Unknown Unknown Verified 05/18/23 23:29 [From Neosporin ([id number]-wln-[id number])] Antihistamines - Alkylamine Allergy PT UNSURE Verified [...] 89.8 H, Lymph % (Auto) 6.3 L, [place] % (Auto) 2.4, Eos % (Auto) 0.3, [...] Urine Clarity Cloudy, Urine pH6.0, Ur Specific [place] 1.010, Urine Protein 100 H, Urine Glucose [...] review of prior recordswho presents to the [facility] ED on 05/19/23 with significant encephalopathy with [...] prophylaxis: Heparin. Charges/Coding Visit Charges Inpatient E&M: 07114 Init Hosp L3 05/19/23 0145 <Electronically signed by Aggie Bolton MD> Cosigner Signature (if applicable): CC: Dr. Aggie Bolton MD; Dr. Erica Richardson DO~ Signed [facility] Work Phone: Hospital Discharge instructionsWooUniversity [facility] Work Phone: Hospital Discharge instructions Additional Instructions Follow-up with your manager online as scheduled.[facility] Work Phone: Hospital Discharge instructions [...] care physician for further outpatient evaluation and management.[facility] Work Phone: Hospital Discharge instructions [...] 2V AP/LAT LEFT X-RAY HUMERUS Earline Rebolledo APRN.KILN PACKER [id number] [place] [phone] Xr Imaging [facility] Referral ID Status Reason Start Date Expiration Date V isits Requested Visits Authorized [id number] Closed Auto-Generate d Referral 03/17/2021 04/16/2022 1 1 [facility]narrative)No reason for referral information availableWKindred Hospital [facility] Work Phone: Reason for visit Narrative* Diagnostic Procedure Only (Urgent) - Closed Specialty Diagnoses / Procedures Referred By Contac t Referred To Contact XR IMAGING Diagnoses Injury of left upper arm, subsequent encounter Procedures XR HUMERUS 2V AP/LAT LEFT X-RAY HUMERUS Earline Rebolledo APRN.KILN PACKER [id number] [place] [phone] Xr Imaging [facility] Referral ID Status Reason Start Date Expiration Date V isits Requested Visits Authorized [id number] Closed Auto-Generate d Referral 03/17/2021 04/16/2022 1 1 [facility] Summary Purpose Family History No Family [...] Documents on File Type Date Recorded Patient Insurance Agents Supervisor Expl anation Advance Directive(s) 06/13/2018 11:17 AM Advance Directive Response Recorded Date/ Time Name of Medical Power of [employer] Crm Developer . May 21, 2021 3:48pm Living Will Yes June 11 12:06pm Power of [employer] Crm Developer Yes June 11, 2021 12:06pm Advance Directive Response Recorded Date/ Time Name of Medical Power of [employer] Crm Developer Reed Marx June 11, 2021 12:06pm Living Will Yes October 06, 2021 9:38pm Power of [employer] Crm Developer No October 06 9:38pm Documents on File Type Date Recorded Patient Insurance Agents Supervisor Expl anation Advance Directive(s) 10/07/2021 4:42 AM Advance Directive(s) 06/13/2018 11:17 AM Documents on File Type Date Recorded Patient Insurance Agents Supervisor Expl anation Advance Directive(s) 10/07/2021 4:42 AM Advance Directive(s) 06/13/2018 11:17 AM Advance Directive Response Recorded Date/ Time Living Will Yes October 06, 2021 9:38pm Power of Peoplesoft Crm Developer No October 06 9:38pm Advance Directive Response Recorded Date/ Time Name of Medical Power of Peoplesoft Crm Developer REED AZAR January 10, 2022 11:50am Living Will Yes January 10, 2022 11:50am Power of Peoplesoft Crm Developer Yes December 11:50am Advance Directive Response Recorded Date/ Time Living Will Yes March 09 8:51am Power of Peoplesoft Crm Developer Yes March 09, 2022 8:51am Name of Medical Power of Peoplesoft Crm Developer REED AZAR January 10, 2022 10:50am Advance Directive Response Recorded Date/ Time Living Will Yes March 09 8:51am Power of Peoplesoft Crm Developer Yes March 09, 2022 8:51am Advance Directive Response Recorded Date/ Time Name of Medical Power of Peoplesoft Crm Developer karol marx- daughter July 02, 2022 5:04pm Living Will Yes July 02, 2022 5:04pm Power of Peoplesoft Crm Developer Yes July 02 5:04pm Advance Directive Response Recorded Date/ Time Name of Medical Power of Peoplesoft Crm Developer Reed Marx November 22, 2022 12:50pm Living Will Yes November 22, 2022 12:50pm Power of Peoplesoft Crm Developer Yes November 22 12:50pm Advance Directive Response Recorded Date/ Time Name of Medical Power of Peoplesoft Crm Developer Reed Sorianoer November 22, 2022 6:25pm Living Will Yes November 22, 2022 6:25pm Power of Peoplesoft Crm Developer Yes November 22 6:25pm Advance Directive Response Recorded Date/ Time Living Will Yes November 22, 2022 5:25pm Power of Peoplesoft Crm Developer Yes November 22 5:25pm Advance Directive Response Recorded Date/ Time Name of Medical Power of Peoplesoft Crm Developer Reed Marx May 19, 2023 3:16am Living Will Yes May 19 3:16am Power of Peoplesoft Crm Developer Yes May 19, 2023 3:16am Advance Directive Response Recorded Date/ Time Name of Medical Power of Peoplesoft Crm Developer Reed Marx May 19, 2023 4:16am Living Will No August 20, 2023 12:29pm Power of Peoplesoft Crm Developer No August 19 12:29pm Advance Directive Response Recorded Date/ Time Living Will No July 04, 2024 1:18pm Power of Peoplesoft Crm Developer No July 04 1:18pm Advance Directive Response Recorded Date/ Time Living Will No July 04, 2024 1:18pm Do you have a Healthcare Power of Peoplesoft Crm Developer? No July 04, 2024 1:18pm Advance Directive Response Recorded Date/ Time Living Will No July 04, 2024 1:18pm Do you have a Healthcare Power of Peoplesoft Crm Developer? No July 04, 2024 1:18pm Do you have a Healthcare Power of Peoplesoft Crm Developer? Yes September 22, 2024 11:53pm Name of Medical Power of Peoplesoft Crm Developer Reed Burris September 22, 2024 11:53pm Advance Directive Response Recorded Date/ Time Do you have a Healthcare Power of Peoplesoft Crm Developer? Yes September 26, 2024 1:40pm Living Will No July 04, 2024 1:18pm Do you have a Healthcare Power of Peoplesoft Crm Developer? No July 04, 2024 1:18pm Do you have a Healthcare Power of Peoplesoft Crm Developer? Yes September 22, 2024 11:53pm Name of Medical Power of Peoplesoft Crm Developer Reed Burris September 22, 2024 11:53pm Advance Directive Response Recorded Date/ Time Living Will No July 04, 2024 1:18pm Do you have a Healthcare Power of Peoplesoft Crm Developer? No July 04, 2024 1:18pm Do you have a Healthcare Power of Peoplesoft Crm Developer? Yes September 22, 2024 8:06pm Advance Directive Response Recorded Date/ Time Do you have a Healthcare Power of Peoplesoft Crm Developer? Yes September 26, 2024 1:40pm Do you have a Healthcare Power of Peoplesoft Crm Developer? Yes September 22, 2024 11:53pm Name of Medical Power of Peoplesoft Crm Developer Reed Burris September 22, 2024 11:53pm Reason for Referral Status Reason Specialty Diagnoses / Procedures Referre d By Contact Referred To Contact Open Radiology Diagnoses Traumatic subdural hematoma with loss of consciousness of 30 minutes or less, subsequent encounter Procedures CT Head WO Contrast Nicho Thompson MD [address] [place] [address] Specialty Diagnoses / Procedures Referred By Contac t Referred To Contact CT IMAGING Diagnoses SDH (subdural hematoma) (HCC) Procedures CT BRAIN WO IVCON CT HEAD/BRAIN W/O CONTRAST MATERIAL Yolie Lowe PA-C [address] [place] [address] Ct Imaging Referral ID Status Reason Start Date Expiration Date Visits Requested Visits Authorized [id number] Pending Review Auto-Generat ed Referral 10/25/2021 11/10/2022 1 1 Referral ID Status Reason Start Date Expiration Date V isits Requested Visits Authorized [id number] Closed Auto-Generate d Referral 10/25/2021 11/10/2022 1 1 Specialty Diagnoses / Procedures Referred By Contac t Referred To Contact MR IMAGING Diagnoses SDH (subdural hematoma) (HCC) Cerebral hemorrhage (HCC) Procedures MRI BRAIN WO/W IVCON MRI BRAIN BRAIN STEM W/O W/CONTRAST MATERIAL Sherice Rosenberg APRN.KILN PACKER [address] [place] [address] Mr Imaging Referral ID Status Reason Start Date Expiration Date V isits Requested Visits Authorized [id number] Closed Auto-Generate d Referral 11/03/2021 12/03/2022 1 [...] 9:44 AM EST Family Communication Number Called: [phone] Name of Designated Family Insurance Agents Supervisor: Reed Fields Relationship to Patient: daughter Phone Call Outcome: I spoke with the individual listed above. 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 Daily Activity Inpatient How much help for [...] How much help for eating meals?: None AM-[facility] Inpatient Daily Activity Raw Score: [address] Inpatient ADL T-Scale Score : 42.03 ADL Inpatient CMS 0-100% Score: 38.32 ADL Inpatient CMS G-Code Modifier : AM-PAC Score AM-[facility] Inpatient Daily Activity Raw Score: 20 (04/17/20911) AM-[facility] Inpatient ADL T-Scale Score : 42.03 (04/17/20911) [...] Plan [facility] This provider wore an N95, face shield, and gloves for the duration of the session with this pt. Yara Fletcher, OTR/L * Parvez Bolden, PT - 04/17/2020 9:05 AM EST Physical Therapy Facility/Department: [facility] ICU T2 Initial Assessment NAME: Aiden Fields : 1945 Date of Service: 04/17/2020 Discharge Recommendations: (facility based therapy) Assessment Body structures, Functions, Activity limitations: Decreased functional mobility ;Decreased strength;Decreased balance;Decreased safe awareness;Decreased endurance Assessment: Pt admitted for Small R temporal SDH without mass effect after fall. 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 Score AM-PAC Inpatient Mobility Raw Score : 16 (04/17/20899) AM-[facility] Inpatient T-Scale Score : 40.78 (04/17/20899) Mobility [...] (Nelson)) Transfer Plan of care over to [facility] Physical Therapy staff. Goals and/or treatment plan [...] 2:38 PM EST Speech Language Pathology Facility/Department: [facility] ICU T2 CLINICAL BEDSIDE SWALLOW EVALUATION NAME: [...] Injury: Fall SH Mechanism of Arrival:Transfer from [place] Chief Complaint: headache History of Traumatic Injury: 74 y.o. female with history of depression, anxiety, hypothyroidism, hypertension, breast cancer s/p mastectomy, melanoma s/p excision and on baby ASA who presents as transfer from [facility] after patient suffered a mechanical fall [...] lifealert. EMS cam and brought her to [facility]. Work up at [...] was repair and she was transferred to [facility] for further management. Upon arriaval she [...] if any concerns arise. Treatment Plan Requires 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 Intervention: No Duration/Frequency of Treatment: na Recommended Diet and Intervention Diet Solids Recommendation: Regular Liquid Consistency Recommendation: Thin General Chart Reviewed: Yes Behavior/Cognition: Alert;Cooperative - patient lives alone - spouse moved to [facility] 9 months ago due to dementia. Patient [...] Safety Devices in place: Yes Therapy Time 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 Individual Minutes Time In: 1415 Time Out: 1430 Minutes: 15 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 Total Treatment Time Total Treatment Time: 15 Char Walsh MS, CCC/ 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 04/16/2020 2:38 PM An N95 mask, a [...] Note [facility] Discharge Summary Name: Aiden Fields [...] Hypoparathyroidism a fter procedure Hypothyroidism Chief Complaint USP LABWORK USP LABWORK USP LABWORK LAB WORK USP LABWORK LAB WORK USP LABWORK USP LAB WORK USP LABWORK USP LABWORK LABWORK USP LAB WORK LABWORK USP LAB WORK LABWORK FALL USP LABWORK USP LABWORK USP LABWORK USP LAB WORK USP LAB WORK Chief Complaint LAB WORK USP LABWORK LAB WORK USP LABWORK USP LAB WORK USP LABWORK USP LABWORK LABWORK USP LAB WORK LABWORK USP LAB WORK LABWORK FALL USP LABWORK USP LABWORK USP LABWORK USP LAB WORK USP LAB WORK USP LAB WORK FOLLOW UP Chief Complaint USP LABWORK LAB WORK USP LABWORK USP LAB WORK USP LABWORK USP LABWORK LABWORK USP LAB WORK LABWORK USP LAB WORK LABWORK FALL USP LABWORK USP LABWORK USP LABWORK USP LAB WORK USP LAB WORK USP LAB WORK USP LABWORK FOLLOW UP Chief Complaint USP LAB WOR K LABWORK FALL USP LABWORK USP LABWORK USP LABWORK USP LAB WORK USP LAB WORK USP LAB WORK USP LABWORK FOLLOW UP USP LABWORK Chief Complaint USP LAB WOR K USP LABWORK FOLLOW UP USP LABWORK PAIN IN RIGHT THIGH Chief Complaint FOLLOW UP USP LABWORK PAIN IN RIGHT THIGH RIGHT THIGH MASS Chief Complaint USP LABWORK PAIN IN RIGHT THIGH RIGHT THIGH [...] and content) DATE CREATED AUTHOR 09/06/2019 [facility] ([place]) DATE CREATED AUTHOR AUTHOR'S ORGANIZ ATION 05/05/2020 [facility] DATE CREATED AUTHOR AUTHOR'S ORGANIZ ATION 01/21/2022 [facility] DATE CREATED AUTHOR AUTHOR'S ORGANIZ ATION 09/22/2023 [facility] DATE CREATED AUTHOR AUTHOR'S ORGANIZ ATION 11/08/2023 [facility] DATE CREATED AUTHOR AUTHOR'S ORGANIZ ATION 11/20/2024 [facility] Source Comments (unrecognize d section and content) In the event this informatio n is protected by the Federal Confidentiality of Alcohol and Drug Abuse Patient Records regulations: The Federal rules restrict any use of the information to criminally investigate or prosecute any alcohol or drug abuse patient.[facility] the event this information is protected by the Federal Confidentiality of Alcohol and Drug Abuse Patient Records regulations: The Federal rules restrict any use of the information to criminally investigate or prosecute any alcohol or drug abuse patient.[facility] [place] [facility] the event this information is protected by the Federal Confidentiality of Alcohol and Drug Abuse Patient Records regulations: The Federal rules restrict any use of the information to criminally investigate or prosecute any alcohol or drug abuse patient.[facility] [place] [facility] the event this information is protected by the Federal Confidentiality of Alcohol and Drug Abuse Patient Records regulations: The Federal rules restrict any use of the information to criminally investigate or prosecute any alcohol or drug abuse patient.[facility] [place] [facility] the event this information is protected by the Federal Confidentiality of Alcohol and Drug Abuse Patient Records regulations: The Federal rules restrict any use of the information to criminally investigate or prosecute any alcohol or drug abuse patient.[facility] [place] [facility] the event this information is protected by the Federal Confidentiality of Alcohol and Drug Abuse Patient Records regulations: The Federal rules restrict any use of the information to criminally investigate or prosecute any alcohol or drug abuse patient.[facility] [place] [facility] the event this information is protected by the Federal Confidentiality of Alcohol and Drug Abuse Patient Records regulations: The Federal rules restrict any use of the information to criminally investigate or prosecute any alcohol or drug abuse patient.[facility] [place] [facility] the event this information is protected by the Federal Confidentiality of Alcohol and Drug Abuse Patient Records regulations: The Federal rules restrict any use of the information to criminally investigate or prosecute any alcohol or drug abuse patient.[facility] [place] [facility] the event this information is protected by the Federal Confidentiality of Alcohol and Drug Abuse Patient Records regulations: The Federal rules restrict any use of the information to criminally investigate or prosecute any alcohol or drug abuse patient.[facility] [place] [facility] the event this information is protected by the Federal Confidentiality of Alcohol and Drug Abuse Patient Records regulations: The Federal rules restrict any use of the information to criminally investigate or prosecute any alcohol or drug abuse patient.[facility] [place] [facility] the event this information is protected by the Federal Confidentiality of Alcohol and Drug Abuse Patient Records regulations: The Federal rules restrict any use of the information to criminally investigate or prosecute any alcohol or drug abuse patient.[facility] [place] [facility] the event this information is protected by the Federal Confidentiality of Alcohol and Drug Abuse Patient Records regulations: The Federal rules restrict any use of the information to criminally investigate or prosecute any alcohol or drug abuse patient.[facility] [place] [facility] the event this information is protected by the Federal Confidentiality of Alcohol and Drug Abuse Patient Records regulations: The Federal rules restrict any use of the information to criminally investigate or prosecute any alcohol or drug abuse patient.[facility] [place] [facility] Hospital[facility] the event this information is protected by the Federal Confidentiality of Alcohol and Drug Abuse Patient Records regulations: The Federal rules restrict any use of the information to criminally investigate or prosecute any alcohol or drug abuse patient.[facility] [place] [facility] HospitalIn the event this information is protected by the Federal Confidentiality of Alcohol and Drug Abuse Patient Records regulations: The Federal rules restrict any use of the information to criminally investigate or prosecute any alcohol or drug abuse patient.[facility] [place] [facility] HospitalIn the event this information is protected by the Federal Confidentiality of Alcohol and Drug Abuse Patient Records regulations: The Federal rules restrict any use of the information to criminally investigate or prosecute any alcohol or drug abuse patient.[facility] [place] [facility] HospitalIn the event this information is protected by the Federal Confidentiality of Alcohol and Drug Abuse Patient Records regulations: The Federal rules restrict any use of the information to criminally investigate or prosecute any alcohol or drug abuse patient.[facility] [place] [facility] HospitalIn the event this information is protected by the Federal Confidentiality of Alcohol and Drug Abuse Patient Records regulations: The Federal rules restrict any use of the information to criminally investigate or prosecute any alcohol or drug abuse patient.[facility] [place] [facility] HospitalIn the event this information is protected by the Federal Confidentiality of Alcohol and Drug Abuse Patient Records regulations: The Federal rules restrict any use of the information to criminally investigate or prosecute any alcohol or drug abuse patient.[facility] [place] [facility] HospitalIn the event this information is protected by the Federal Confidentiality of Alcohol and Drug Abuse Patient Records regulations: The Federal rules restrict any use of the information to criminally investigate or prosecute any alcohol or drug abuse patient.[facility] [place] [facility] HospitalIn the event this information is protected by the Federal Confidentiality of Alcohol and Drug Abuse Patient Records regulations: The Federal rules restrict any use of the information to criminally investigate or prosecute any alcohol or drug abuse patient.[facility] [place] [facility] HospitalIn the event this information is protected by the Federal Confidentiality of Alcohol and Drug Abuse Patient Records regulations: The Federal rules restrict any use of the information to criminally investigate or prosecute any alcohol or drug abuse patient.[facility] [place] [facility] HospitalIn the event this information is protected by the Federal Confidentiality of Alcohol and Drug Abuse Patient Records regulations: The Federal rules restrict any use of the information to criminally investigate or prosecute any alcohol or drug abuse patient.[facility] [place] [facility] HospitalIn the event this information is protected by the Federal Confidentiality of Alcohol and Drug Abuse Patient Records regulations: The Federal rules restrict any use of the information to criminally investigate or prosecute any alcohol or drug abuse patient.[facility] [place] [facility] HospitalIn the event this information is protected by the Federal Confidentiality of Alcohol and Drug Abuse Patient Records regulations: The Federal rules restrict any use of the information to criminally investigate or prosecute any alcohol or drug abuse patient.[facility] Reason for Visit (unrecogniz ed section [...] W/O CONTRAST MATERIAL Yolie Lowe PA-C [address] [place] [address] Ct Imaging Referral ID Status Reason Start Date Expiration Date V isits Requested Visits Authorized [id number] Closed Auto-Generate d Referral 10/25/2021 11/10/2022 1 1 Reason Comments Post Op fu rib fx and pneumo thorax, rib plating Reason Comments Radio Gen RMP Specialty Diagnoses / Procedures Referred By Contac t Referred To Contact MR IMAGING Diagnoses SDH (subdural hematoma) (HCC) Cerebral hemorrhage (HCC) Procedures MRI BRAIN WO/W IVCON MRI BRAIN BRAIN STEM W/O W/CONTRAST MATERIAL Sherice Rosenberg, TELEGRAPH PLANT MAINTAINER.KILN PACKER [address] [place] [address] Mr Imaging Referral ID Status Reason Start Date Expiration Date V isits Requested Visits Authorized [id number] Closed Auto-Generate d Referral 11/03/2021 12/03/2022 1 1 Reason Comments Established Patient Reason Comments Cough Cough x 3 weeks Reason Comments Results Care Teams (unrecognized sec tion and content) Internet Cafe Manager Relationship Specialty Start Date End Date Erica Richradson, [address] [place], [place] [id number] PCP - General Family Practice 10/27/17 Internet Cafe Manager Relationship Specialty Start Date End Date Erica Richardson DO [address] [place], [place] [id number] PCP - General Family Practice 02/15/17 Internet Cafe Manager Relationship Specialty Start Date End Date Erica Richardson DO [address] [place], [place] [address] PCP - General Family Practice 02/15/17 Internet Cafe Manager Relationship Specialty Start Date End Date Erica Richardson DO [address] [place], [place] [id number] PCP - General Family Practice 02/15/17 Internet Cafe Manager Relationship Specialty Start Date End Date Erica Richardson DO [address] [place], [place] [id number] PCP - General Family Practice 02/15/17 Internet Cafe Manager Relationship Specialty Start Date End Date Erica Richardson DO [address] [place], [place] [id number] PCP - General Family Practice 02/15/17 Internet Cafe Manager Relationship Specialty Start Date End Date Erica Richardson DO [address] [place], [place] [address] PCP - General Family Practice 02/15/17 Internet Cafe Manager Relationship Specialty Start Date End Date Erica Richardson DO [address] [place], [place] [id number] PCP - [facility] Family Practice 02/15/17 Internet Cafe Manager Relationship Specialty Start Date End Date Erica Richardson DO [address] [place], [place] [id number] PCP - General Family Practice 02/15/17 Internet Cafe Manager Relationship Specialty Start Date End Date Erica Richardson DO [address] [place] [address] [address] - [facility] Medicine 02/15/17 Internet Cafe Manager Relationship Specialty Start Date End Date Erica Richardson DO [address] [place] [address] PCP - [facility] 02/15/17 Team Status: Active Member Role Status Dates Dr. Erica Richardson DO Family Provider Active Dr. Erica Richardson DO Primary Care Provider Active Team Status: Inactive Member Role Status Dates Dr. Erica Richardson DO Primary Care Provider Active Aiden Mcgrath 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, 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-C Attending Provider Active Team Status: Active Member [...] Primary Care Provider, Attending P rovider Active Internet Cafe Manager Relationship Specialty Start Date End Date Erica Richardson DO [address] [place] [address] PCP - [facility] Family Medicine 02/15/17 Team Status: Inactive Member [...] MD Admit Provider, Attending Provi alexander Active Internet Cafe Manager Relationship Specialty Start Date End Date Erica Richardson DO [address] [place] [address] PCP - [facility] Family Medicine 02/15/17 Team Status: Active Member [...] Dr. James Lamar DO Attending Provider Active Internet Cafe Manager Relationship Specialty Start Date End Date Erica Richardson DO [address] [place], [place] [address] PCP - [facility] Medicine 02/15/17 Team Status: Active Member Role [...] Dr. Vernon Osman MD Other Provider Active Internet Cafe Manager Relationship Specialty Start Date End Date LiborioErica kuhn DO [address] [place] [address] PCP - General Family Medicine 02/15/17 Team Status: Inactive Member Role Status Dates Dr. Erica Richardson DO Primary Care Provider Active Dr. Seb Bautista DO Emergency Provider Active Internet Cafe Manager Relationship Specialty Start Date End Date LiborioErica kuhn DO [address] [place] [address] PCP - General Family Medicine 02/15/17 Internet Cafe Manager Relationship Specialty Start Date End Date Erica Richardson DO [address] [place] [address] PCP - General Family Medicine 02/15/17 Internet Cafe Manager Relationship Specialty Start Date End Date LiborioErica kuhn DO [address] [place] [address] PCP - General Family Medicine 02/15/17 Team [...] 21, 2024 End: August 21, 2024 Dr. Eriac Richardson DO Attending Provider Active St art: [...] 2024 End: September 28, 2024 Aiden Mcgrath 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, 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-C Attending Provider Active Start: September 28, 2024 [...] 30, 2024 End: September 30, 2024 Aiden Mcgrath NP 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-C Attending Provider Active Start: September 30, 2024 [...] End: October 01, 2024 Aiden Mcgrath NP, 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-C Attending Provider Active Start: October 01, 2024 [...] 2024 End: October 12, 2024 Aiden Mcgrath 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, 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-C Attending Provider Active Start: October 12, 2024 [...] BE BASED ON THE PRIMARY CLINICAL RECORDS. [facility]. provides no warranty or guarantee of the accuracy or completeness of information in this document.
== END | disposition home or self-care (01) ==
LOC: LABSPEC 22:35
PROVIDERS: PCP Internal Medicine; Visit Provider Family Medicine
DX: R35.0 Frequency of micturition (principal); Z87.440 Personal history of urinary (tract) infections
CPT/HCPCS: 87086; 87088

== ENCOUNTER → 2024-11-26 | Outpatient (CLI) | payer MEDICARE, BC, SELFPAY | END | disposition home or self-care (01) | LOC: LABSPEC 09:04 | PROVIDERS: PCP Internal Medicine; Referring Provider Family Medicine; Visit Provider Family Medicine | DX: R35.0 Frequency of micturition (principal); R35.1 Nocturia; N39.41 Urge incontinence ==

== ENCOUNTER → 2025-01-16 | Outpatient (CLI) | payer MEDICARE, BC, SELFPAY ==
--- OUTSIDE RECORDS SUMMARY | 2024-11-27 10:50 | XMS RPT_ITS ---
Author Name Auto Generated Organization [facility] Care Team Providers Care Telegraphic Typewriter Mechanic Name Role Phone SELF Referring Unavailable MARCIA HILTON [facility] Unavailable PROBLEMS DATE TYPE CONDITION / CODE ATTENDING STATUS ROSA RCE 11/27/2024 Active Port Flush / UNK(Unknown) NA Act jean paul [facility] PROCEDURES No Procedure Records Found RESULTS BACTERIA UR CULT Observed: 12/16/2024 9:30 AM Status: F Source: [facility] ORGANISM ID: 1 >=100,000 CFU/ml Citrobacter freundii complex ORGANISM ID: 1 (CITROBACTER FREUNDII COMPLEX) ----- ----- ANTIBIOTIC INTERPRETATION BENJAMIN STATUS REFERENCE RANGE ----- ----- Ampicillin R F Cefepime S <=1 F Susceptible <=2 , Susceptible-Dose Dependent >2 , Resistant >=16 Ertapenem S <=0.5 F Susceptible <=0.5 , Intermediate >.5 , Resistant >1 Meropenem S <=0.25 F Susceptible <=1 , Intermediate >1 , Resistant >2 Ampicillin/Sulbact R F Piperacillin/Tazobac S <=4 F Susceptible <16 , Susceptible-Dose Dependent >=16 , Resistant >=32 Gentamicin S <=1 F Susceptible <=2 , Intermediate >2 , Resistant >=8 Tobramycin S <=1 F Susceptible <4 , Intermediate >=4 , Resistant >=8 Trimeth sulfameth S <=20 F Susceptible <=40 , Resistant >40 Ciprofloxacin S <=0.25 F Susceptible <0.5 , Intermediate >=.5 , Resistant >=1 Nitrofurantoin I 64 F Susceptible <=32 , Intermediate >32 , Resistant >64 Performed By: #### [id number] ### # [facility] CLIA [id number] [facility] [place] [address] [place] URINALYSIS, DIPSTICK ONLY Collected: 12/16/2024 9:30 AM Status: F Source: [facility] Order Comment: Specimen Type : URINE SPECIMEN Ordering Facility: [facility] Address: [address] [place] [address] TYPE CODE TESTS RESULT OUT OF RANGE REFERENCE UNITS LAB 5778-6(LOINC) Color Ur Yellow Yellow LAB 78105-9(LOINC) Clarity Spec Cloudy Abnormal Clear LAB 5792-7(LOINC) Glucose Ur Strip-mCnc Negative Negative LAB 5770-3(LOINC) Bilirub Ur Ql Strip Negative Negative LAB 2514-8(LOINC) Ketones Ur Strip Negative Negative LAB 5811-5(LOINC) Sp Gr Ur Strip 1.015 1.005-1.030 LAB 5794-3(LOINC) Hgb Ur Ql Strip Trace Abnormal Negative LAB 5803-2(LOINC) pH Ur Strip 6.0 5.0-8.0 LAB 5804-0(LOINC) Prot Ur Strip-mCnc Negative Negative LAB 5818-0(LOINC) Urobilinogen Ur Strip 0.2 EU/dL 0.2-1.0 EU/dL LAB 5802-4(LOINC) Nitrite Ur Ql Strip Positive Abnormal Negative LAB 5799-2(LOINC) Leukocyte esterase Ur Ql Strip 3+ Abnormal Negative Performed By: #### UA #### [facility] CLIA [id number] [address] [address] [place] ALLERGIES DATE TYPE / CODE NAME / CODE REACTION SEVERITY SOURCE 10/27/2012 DRUG INGREDI/65626 1003(SNOMED CT) [facility]DRAMINE [facility] Drug Class/6431896 03(SNOMED CT) ANTIHISTAMINES - ALKYLAMINE INTOLERANCE [facility] 08/14/2006 DRUG/[id number] 3(SNOMED CT) [id number] YMYXIN [facility] ENCOUNTERS ADMIT/DISCHARGE ACCOUNT NUMBER ADMITTING ENCOUNTER CLASS LOC ATION SOURCE 11/27/2024/ 5 [id number] [facility] PAYERS ENCOUNTER GUARANTOR PAYER SUBSCRIBER SOURCE 11/27/2024 Primary Insuranc e:MEDICARE A AND BPolicy Number: [id number] Date:[id number] Name:Asha TRUONG: [id number] [place] [address] [facility] 11/27/2024 Secondary Insura nce:ARJUN MEDICARE SUPPLEMENTPolicy Number: [id number] Date:3631-08-08Fmza Name:Rosalind TRUONG: [id number] [place] [address] [facility]
--- NOTE | 2025-01-16 10:13 | CT_ITS ---
PROCEDURE: EXTREMITY UPPER WITHOUT CONTRA 01/16/2025 REASON FOR EXAM: MUSCLE STRAIN, TENDON OF THE ROTATOR TECHNIQUE: Procedure Code: CTEUWO Modality: CT Procedure: EXTREMITY UPPER WITHOUT CONTRA Coronal and Sagittal reconstruction series were provided. One or more dose reduction techniques were used (e.g., Automated exposure control, adjustment of the mA and/or kV according to patient size, use of iterative reconstruction technique. RADIATION DOSE SUMMARY: DLP: 601 mGycm COMPARISON: None FINDINGS: There is hardware present in the left ribs. An old healed fracture of the left scapula is noted. 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 There is a 0.3 cm corticated osteochondral fragment in the superior joint space. 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 There is a moderate joint effusion. There is no visible muscular atrophy. There is no soft tissue mass or adenopathy. Scar is noted at the left lung apex. Atherosclerotic calcifications are noted. CT/Extremity Upper without Contra IMPRESSION: There is hardware present in the left ribs. An old healed fracture of the left scapula is noted. 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 There is a 0.3 cm corticated osteochondral fragment in the superior joint space . 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 Reading Location: [facility]
== END | disposition home or self-care (01) ==
LOC: CT 10:01
PROVIDERS: PCP Family Medicine; Referring Provider Physician Assistant Surgical; Visit Provider Physician Assistant Surgical
DX: S42.032K Displaced fracture of lateral end of left clavicle, subsequent encounter for fracture with nonunion (principal); S40.012D Contusion of left shoulder, subsequent encounter; S46.012D Strain of muscle(s) and tendon(s) of the rotator cuff of left shoulder, subsequent encounter; X58.XXXA Exposure to other specified factors, initial encounter
CPT/HCPCS: 73200

== ENCOUNTER 2025-03-10 11:32 | Outpatient (CLI) | payer MEDICARE, BC, SELFPAY ==
[2025-03-10 11:41] LABS: Mucous, Urine 0 SEEN /hpf (<or=2+); Red Blood Cells-Urine 0 SEEN /hpf (0-5)
[2025-03-10 11:50] LABS: Color, Urine Yellow (Yellow); Glucose, Dipstick Normal (Normal); Ketone-Dipstick Negative (Negative); Leukocyte Esterase-Dipstick Negative /ul (Negative); Nitrite-Dipstick Negative (Negative); Occult Blood-Urine Negative /ul (Negative); Protein-Dipstick Negative (Negative); Specific Gravity, Urine 1.010 (1.002-1.030); Urine Bilirubin Dipstick Negative (Negative)
[2025-03-10 11:56] LABS: Squamous Epithelial Cells - UA 0-5 SEEN /hpf (5-10)
== END 2025-03-10 23:59 | disposition home or self-care (01) ==
LOC: LABSPEC 11:35
PROVIDERS: PCP Family Medicine; Visit Provider Family Medicine
DX: R44.3 Hallucinations, unspecified (principal); Z87.440 Personal history of urinary (tract) infections
CPT/HCPCS: 81001; 87086

== ENCOUNTER 2025-03-29 13:18 | Inpatient (IN) | payer MEDICARE, BC, SELFPAY ==
[2025-03-29] VITALS (11 sets, daily range): BP systolic 105–165; BP diastolic 65–85; PULSE 77–101; RESP 13–20; TEMP 36.5–37.3; O2SAT 86–100; BMI 27.9; BMI 27.6
--- NOTE | 2025-03-29 13:34 | EKG12_ITS ---
Test Reason : Blood Pressure : */* mmHG Vent. Rate : 98 BPM Atrial Rate : 98 BPM P-R Int : 132 ms QRS Dur : 72 ms QT Int : 352 ms P-R-T Axes : 48 11 31 degrees QTcB Int : 449 ms Sinus rhythm with Premature atrial complexes Otherwise normal ECG Confirmed by Vernon Mazariegos ([id number]), news video editor ONESIMO GRACE ([id number]) on 03/31/2025 11:33:14 AM Referred By: Confirmed By: Vernon Mazariegos
--- NOTE | 2025-03-29 13:55 | RAD_ITS ---
PROCEDURE: CHEST 1 VIEW (PORTABLE) 03/29/2025 REASON FOR EXAM: COUGH TECHNIQUE: Frontal view of the chest. COMPARISON: 09/22/2024 FINDINGS: Hardware: Right-sided MediPort unchanged. Heart: The heart size is normal. Lungs: The lungs are clear. No pneumothorax or pleural effusion. Bones: Degenerative changes are identified within the thoracic spine. Multiple ORIF of the right humerus and left-sided ribs.
[2025-03-29 14:04] LABS: Hematocrit 37.0 % (37-47); Hemoglobin 12.3 g/dL (12.0-15.0); Immature Granulocytes Count 0.090 X10^3/uL (0.0-0.0); Mean Corp Hgb Conc 33.2 g/dL (32-36); Mean Corpuscular Volume 94.1 fL (81-99); Mean Platelet Vol. 9.8 fl (6.2-12.0); NRBC Flagged by Analyzer 0 % (0-5); Platelet Count 362 K/mm3 (150-450); RBC Distribution Width CV 12.7 % (11.6-14.6); RBC Distribution Width SD 44.2 fl (35.1-43.9); Red Blood Count 3.93 M/mm3 (4.2-5.4); White Blood Count 12.0 K/mm3 (4.4-11.0)
[2025-03-29 14:09] LABS: Prothrombin Time (Protime)PT. 16.7 SECONDS (11.7-14.9)
[2025-03-29 14:10] LABS: Partial Thromboplast Time 30.4 Seconds (24.1-36.2)
[2025-03-29 14:26] LABS: AST(SGOT) 17 U/L (<=31); Alanine Aminotransfer ALT/SGPT 9 U/L (<=34); Albumin, Serum 3.7 g/dL (3.4-4.8); Alkaline Phosphatase 96 U/L (35-104); Anion Gap 17 (5-15); BUN 14 mg/dL (4-19); BUN/Creat Ratio 29.6 RATIO (10-20); Calcium,Total 8.3 mg/dL (7.6-11.0); Carbon Dioxide 19.7 mmol/L (21.0-32.0); Chloride 87 mmol/L (98-108); Estimated Creatinine Clearance 65.60 ml/min (50-250); Globulin 3.8 g/dL (2.2-4.2); Glucose 118 mg/dL (70-99); Potassium 4.3 mmol/L (3.3-5.1); Troponin T High Sensitivity 12 ng/L (<=14)
--- NOTE | 2025-03-29 14:26 | EX.ED.DYSGE1 ---
HPI History of Present Illness Chief Complaint: Fever Informant: patient, EMS and other (Home health aide) Narrative Narrative: 79-year-old female presenting to the emergency room with the chief complaint of COVID-19 and fever. Patient reportedly had a home test that was positive for COVID on Saturday. History is very difficult to get from the patient as her caregiver says that she is confused like she has never been confused before. She apparently gets 24-hour home care for dementia and being a fall risk. It is not clear what day her first day of symptomology was. She cannot tell me that she has been coughing for several days and that she had an episode of emesis today. She reportedly does not wear home oxygen but nursing here reports a pulse ox of 86% on room air. Home health aide states that she had a temperature of 104. EMS report temperature of 99.6. Patient does not believe she has had any diarrhea. Patient was transfer assist but has been in bed and unable to get out of bed for 2 days now. I cannot speak to whether or not the patient has any new medications since the diagnosis of COVID as they do not know. [facility] Medical History Left shoulder pain Neuropathic pain Chronic anxiety Humerus fracture Closed left humeral fracture Hypothyroidism Anxiety and depression Hypoparathyroidism after procedure Back problem Frequent falls Benzodiazepine dependence Opioid dependence Melanoma Tobacco abuse Hypothyroidism GERD (gastroesophageal reflux disease) Anemia Alcohol abuse Hypertension Multiple rib fractures Subdural hematoma Vitamin D deficiency Skin cancer Rheumatoid arthritis High cholesterol Calcium deficiency Glaucoma Breast cancer Arthritis Home Medications ?Medication ?Instructions ?Recorded ?Last Taken ?Type amlodipine 5 mg tablet 5 mg PO DAILY 11/22/22 03/29/25 History calcitriol 0.5 mcg capsule 0.5 mcg PO DAILY 11/22/22 03/28/25 History cholecalciferol (vitamin D3) 25 25 mcg PO DAILY SUPPLEMENT 11/22/22 03/28/25 History mcg (1,000 unit) capsule escitalopram oxalate 10 mg tablet 10 mg PO DAILY ANXIETY 11/22/22 03/29/25 History (Lexapro) meclizine 25 mg tablet 25 mg PO TID Dizziness 11/22/22 11/22/22 History memantine 5 mg tablet 5 mg PO BID 11/22/22 03/29/25 History nabumetone 750 mg tablet 750 mg PO BID 11/22/22 03/29/25 History acetaminophen 500 mg capsule 500 mg PO BID 05/19/23 03/28/25 History pyridoxine (vitamin B6) 100 mg 100 mg PO DAILY 05/19/23 03/28/25 History tablet liothyronine 5 mcg tablet 5 mcg PO DAILY 07/04/24 03/29/25 History quetiapine 25 mg tablet 25 mg PO BID 07/04/24 03/29/25 History pregabalin 75 mg capsule 75 mg PO TID 02/09/25 03/29/25 History valacyclovir 1 gram tablet 1,000 mg PO QDAY 02/09/25 03/28/25 History vitamins A,C,M-lzsg-scbjla 4,296 1 cap PO BID 02/09/25 03/28/25 History mcg-226 mg-90 mg capsule (PreserVision AREDS) clonazepam 1 mg tablet 1 mg PO Q12H 03/29/25 03/29/25 History dextromethorphan polistirex 30 10 ml PO Q12H 03/29/25 03/29/25 History mg/5 mL oral susp ext.release 12hr (12-Hour Cough Relief) docusate sodium 100 mg capsule 100 mg PO DAILY 03/29/25 03/28/25 History (Colace) erythromycin 5 mg/gram (0.5 %) eye 1 applic RIGHT EYE DAILY 03/29/25 03/28/25 History ointment guaifenesin 1,200 mg tablet, 1,200 mg PO BID 03/29/25 03/29/25 History extended release 12 hr (Mucinex) lactobacillus combination no.9 1 cap PO DAILY 03/29/25 03/28/25 History levothyroxine 125 mcg tablet 125 mcg PO DAILY 03/29/25 03/29/25 History nirmatrelvir 300 mg (150 mg 2 tab PO BID 03/29/25 03/29/25 History x2)-ritonavir 100 mg tablet,dose pack (Paxlovid) potassium chloride 20 mEq 20 meq PO BID 03/29/25 03/28/25 History tablet,extended release prednisolone acetate 1 % eye 1 drp ophthalmic (eye) DAILY 03/29/25 03/29/25 History drops,suspension Allergy/AdvReac Type Severity Reaction Status Date / Time bacitracin (From Neosporin Allergy Unknown Unknown Verified 03/29/25 13:23 ([id number])) neomycin (From Neosporin Allergy Unknown Unknown Verified 03/29/25 13:23 ([id number])) polymyxin B (From Neosporin Allergy Unknown Unknown Verified 03/29/25 13:23 ([id number])) Antihistamines - Alkylamine Allergy PT UNSURE Verified 03/29/25 13:23 OF REACTION diphenhydramine (From Allergy PT UNSURE Verified 03/29/25 13:23 Benadryl) OF REACTION Family History Unknown Thyroid disorder Cancer High cholesterol Arthritis Mother Cancer Diabetes Father , Father at the age of 50 from successful suicide attempt. Suicidal intent Other Alcohol abuse Anxiety Depression Heart disease Hypertension Mental disorder Parkinson disease Psychiatric care Surgical History Status post glaucoma surgery H/O mastectomy H/O thyroidectomy Social History household members: none housing: house Smoking Status: Former smoker second hand exposure: Yes alcohol intake: former substance use type: does not use ROS ROS ED Constitutional Constitutional ED: Reports chills and fever(s) ENT ENT ED: Reports rhinorrhea Respiratory/Chest Respiratory/Chest: Reports cough and dyspnea Gastrointestinal Gastrointestinal: Reports nausea and vomiting Neurologic Neurologic: Reports other Details: Confusion EXAM Physical Exam Const Vital Signs: 03/29/25 13:19 03/29/25 13:24 03/29/25 13:26 Temperature 99.1 F 99.1 F Temperature Source Oral Oral Pulse Rate 97 101 H Respiratory Rate 18 17 Respiratory Effort Blood Pressure 165/85 H 165/85 H Blood Pressure Mean 111 111 Pulse Ox 86 92 94 Oxygen Delivery Method Room Air Nasal Cannula Nasal Cannula Oxygen Flow Rate (L/min) 2 2 03/29/25 13:26 03/29/25 13:43 03/29/25 15:19 Temperature Temperature Source Pulse Rate 84 Respiratory Rate 14 Respiratory Effort Normal Non-Labored Blood Pressure 112/74 Blood Pressure Mean 86 Pulse Ox 97 Oxygen Delivery Method Nasal Cannula Nasal Cannula Oxygen Flow Rate (L/min) 2 03/29/25 15:24 12/08/25 16:00 Temperature 98.1 F 98.2 F Temperature Source Oral Oral Pulse Rate 91 77 Respiratory Rate 13 15 Respiratory Effort Blood Pressure 112/72 105/65 Blood Pressure Mean 85 78 Pulse Ox 97 97 Oxygen Delivery Method Nasal Cannula Nasal Cannula Oxygen Flow Rate (L/min) Positive well nourished, well developed and obese General Appearance ED: well developed and NAD Nutritional Appearance: obese HEENT Reports normocephalic, head/scalp atraumatic and moist mucous membranes Eyes PERRL and EOMs intact bilaterally Neck no lymphadenopathy, supple and no JVD Resp normal respiratory effort and clear to auscultation bilaterally Resp Narrative: Cough Cardio regular rate, regular rhythm and no murmurs Rate: tachycardic GI normal to inspection, nondistended, normoactive bowel sounds and non-tender Palpation: soft Back/Spine no CVA tenderness and normal ROM Extremity normal to inspection General Extremety ED: Yes edema General Extremity: edema bilateral lower extremity Details: mild Neuro oriented x3 and CN's II-XII intact bilaterally Neuro Narrative: Patient is oriented x 3 but seemingly confused by simple historical questions. Sensorium / Orientation: alert Motor Exam: strength 5/5 throughout Psych mental status grossly normal Mood & Affect: Negative for depressed or tearful Skin no rashes or lesions noted and no wounds MDM MDM MDM Narrative Medical decision making narrative: Differential diagnosis includes but not limited to sepsis pneumonia pulmonary embolism electrolyte abnormalities dehydration acute coronary syndrome viral syndrome UTI bowel obstruction Patient received Zofran. White count returns at 12 hemoglobin 12.3 INR is 1.3. Sodium returns significantly low at 124. She is typically around 140. Anion gap is 17 BUN 14 creatinine 0.48. Glucose 118 lactic acid less than 1. Normal LFTs troponins are 12 and 14. Urinalysis with no overt infection. My independent interpretation of the chest x-ray is no distinct infiltrate or effusion. A CTA of the chest was obtained and is currently pending. I do not see a large pulmonary embolism. Her EKG is sinus at a rate of 98. Patient has received a 500 cc fluid bolus. She also received Zofran for vomiting. I am going to be speaking with the hospitalist regarding admission. History & Record Review Discussion w/independent historian: EMS personnel and Patient Additional record(s) reviewed:: Prior labs Lab Data Attestation: I reviewed the patient's lab results. Labs: Laboratory Results - last 24 hr 03/29/25 03/29/25 03/29/25 13:10 14:20 15:48 WBC 12.0 H RBC 3.93 L Hgb 12.3 Hct 37.0 MCV 94.1 MCH 31.3 MCHC 33.2 RDW Std Deviation 44.2 H RDW Coeff of Felix 12.7 Plt Count 362 MPV 9.8 Immature Gran % (Auto) 0.700 Neut % (Auto) 84.5 H Lymph % (Auto) 9.0 L [place] % (Auto) 5.3 Eos % (Auto) 0.3 Baso % (Auto) 0.2 Absolute Neuts (auto) 10.2 H Absolute Lymphs (auto) 1.08 Nucleated RBC % 0 PT 16.7 H INR 1.3 APTT 30.4 Sodium 124 L Potassium 4.3 Chloride 87 L Carbon Dioxide 19.7 L Anion Gap 17 H BUN 14 Creatinine 0.48 L Estim Creat Clear Calc 65.60 Est GFR (MDRD) Non-Af 97 BUN/Creatinine Ratio 29.6 H Glucose 118 H Lactic Acid < 1.0 Calcium 8.3 Total Bilirubin 0.31 AST 17 ALT 9 Alkaline Phosphatase 96 Troponin T High Sens 12 Troponin T Hi Sens 2 Hr 14 Total Protein 7.5 Albumin 3.7 Globulin 3.8 Albumin/Globulin Ratio 1.0 Urine Color Yellow Urine Clarity Clear Urine pH 6.0 Ur Specific [place] 1.030 Urine Protein 30 H Urine Glucose (UA) Normal Urine Ketones 150 A* Urine Occult Blood 25 H Urine Nitrite Negative Urine Bilirubin Negative Urine Urobilinogen Normal Ur Leukocyte Esterase Negative Urine RBC 0-5 SEEN Urine WBC 0 SEEN Ur Squamous Epith Cells 0 SEEN Urine Bacteria 1+ Urine Mucus 0 SEEN Radiography Diagnostic Testing: Clinical Impression(s) from Imaging Studies Chest X-Ray 03/29/25 13:55 IMPRESSION: No Acute Findings. Reading Location: [facility] Chest CTA 03/29/25 14:44 IMPRESSION: No evidence of pulmonary embolism. Patchy ground-glass opacities throughout both lungs most consistent with multifocal pneumonia in the setting of COVID infection. Mild bilateral dependent atelectasis. Chronic findings including a stable compression deformity of T12 and postsurgical changes of the left ribs. Reading Location: [facility] EKG Initial EKG: Attestation: I personally reviewed and interpreted this EKG as follows: Comments: Sinus rhythm with a ventricular rate of 98 bpm Management Discussion w/another healthcare provider: Hospitalist (Dr. Lowe) Discharge Plan Dx/Rx/DC Orders Clinical Impression: COVID-19, Hyponatremia, Vomiting, Acute hypoxemic respiratory failure, AMS (altered mental status) Disposition Disposition: Acute Care Hospital [facility]
[2025-03-29 14:41] LABS: Color, Urine Yellow (Yellow); Glucose, Dipstick Normal (Normal); Leukocyte Esterase-Dipstick Negative /ul (Negative); Mucous, Urine 0 SEEN /hpf (<or=2+); Nitrite-Dipstick Negative (Negative); Occult Blood-Urine 25 /ul (Negative); Protein-Dipstick 30 mg/dl (Negative); Specific Gravity, Urine 1.030 (1.002-1.030); Squamous Epithelial Cells - UA 0 SEEN /hpf (5-10); Urine Bilirubin Dipstick Negative (Negative)
--- NOTE | 2025-03-29 14:44 | CT_ITS ---
PROCEDURE: CTA CHEST W/WO CONTRAST 03/29/2025 REASON FOR EXAM: COVID + HYPOXIA PE TECHNIQUE: Procedure Code: [id number] Modality: CT Procedure: CTA CHEST W/WO CONTRAST Multiplanar Sagittal and Coronal images were obtained. CONTRAST: Isovue-300 VOLUME: 100 mL One or more dose reduction techniques were used (e.g., Automated exposure control, adjustment of the mA and/or kV according to patient size, use of iterative reconstruction technique). RADIATION DOSE SUMMARY: CTDlvol: 14+ 17 mGy DLP: 585 mGycm COMPARISON: 11/22/2022. FINDINGS: Absent left breast. Right chest infusion port. Postsurgical changes of the right shoulder. Degenerative changes of the spine. Compression deformity of T12 which appears stable. Postsurgical changes to the left ribs. Normal caliber esophagus. The upper abdomen is unremarkable mild atherosclerosis of a normal caliber thoracic aorta. The heart is normal in size. Coronary artery calcifications are present. Patchy ground-glass opacities throughout the lungs which may represent pneumonia. No pulmonary artery filling defects. Mild bilateral dependent atelectasis. CT/CTA Chest W/WO Contrast IMPRESSION: No evidence of pulmonary embolism. Patchy ground-glass opacities throughout both lungs most consistent with multif ocal pneumonia in the setting of COVID infection. Mild bilateral dependent atelectasis. Chronic findings including a stable compression deformity of T12 and postsurgic al changes of the left ribs. Reading [facility]
[2025-03-29 14:50] LABS: Ketone-Dipstick 150 mg/dl (Negative)
[2025-03-29 14:54] LABS: Red Blood Cells-Urine 0-5 SEEN /hpf (0-5)
[2025-03-29 16:28] LABS: Troponin T High Sens 2 HR 14 ng/L (<=14)
[2025-03-29] MEDS: 0.9% Normal Saline (500mL Bag) 500 ML 999 ML IV (17:05)
--- NOTE | 2025-03-29 17:35 | PCM.HP.STD ---
HPI - General General Date of Admission: 03/29/25 Date of Service: 03/29/25 Chief Complaint: Confusion, weakness, covid 19 HPI Narrative AIDEN FIELDS, is a 79-year-old female with a history of anxiety, cognitive impairment, hypothyroidism, hypertension presented to [facility] ED 03/29/2025 due to fever. Reportedly she has been coughing for several days and had a positive home COVID test on Saturday. Per patient's caregiver she is more confused from baseline and had a temperature of 104 at home as well as increased weakness so she was brought to the ED. Temp in the ED 99.1, heart rate 97, respiratory rate 18, blood pressure 165/85 and pulse ox 86% on room air with improvement to 92 on 2 L nasal cannula. White blood cell count 12 and hemoglobin 12.3. CMP noted a sodium of 124 with her last sodium several months ago 140, chloride 87, bicarb 19.7 and a gap of 17, BUN 14 and creatinine 0.48, liver profile within normal limits and glucose 118. Chest x-ray with no acute process. Lactic acid less than 1 and troponin of 12 with a repeat of 14. UA positive for ketones and 1+ bacteria but no nitrite, leuk esterase, or white blood cells. Respiratory swab positive for COVID. CTA ordered and showed patchy ground-glass opacities throughout both lungs most consistent w/ multifocal pneumonia in the setting of COVID infection. Given her hypoxia and altered mental status as well as low sodium hospitalist contacted for admission. Patient evaluated with aide at bedside. Essentially history as above with patient being diagnosed with COVID on Saturday and having symptoms for at least several days before that. Patient denies feeling short of breath but reports primary complaint of cough, also had nausea couple times mostly when she is being moved. Had diarrhea Saturday and of last week before being diagnosed with COVID but this is since resolved with an [id number] medication. Denies any abdominal pain [facility] Medical History Left shoulder pain Neuropathic pain Chronic anxiety Humerus fracture Closed left humeral fracture Hypothyroidism Anxiety and depression Hypoparathyroidism after procedure Back problem Frequent falls Benzodiazepine dependence Opioid dependence Melanoma Tobacco abuse Hypothyroidism GERD (gastroesophageal reflux disease) Anemia Alcohol abuse Hypertension Multiple rib fractures Subdural hematoma Vitamin D deficiency Skin cancer Rheumatoid arthritis High cholesterol Calcium deficiency Glaucoma Breast cancer Arthritis Home Medications ?Medication ?Instructions ?Recorded ?Last Taken ?Type amlodipine 5 mg tablet 5 mg PO DAILY 11/22/22 03/29/25 History calcitriol 0.5 mcg capsule 0.5 mcg PO DAILY 11/22/22 03/28/25 History cholecalciferol (vitamin D3) 25 25 mcg PO DAILY SUPPLEMENT 11/22/22 03/28/25 History mcg (1,000 unit) capsule escitalopram oxalate 10 mg tablet 10 mg PO DAILY ANXIETY 11/22/22 03/29/25 History (Lexapro) meclizine 25 mg tablet 25 mg PO TID Dizziness 11/22/22 11/22/22 History memantine 5 mg tablet 5 mg PO BID 11/22/22 03/29/25 History nabumetone 750 mg tablet 750 mg PO BID 11/22/22 03/29/25 History acetaminophen 500 mg capsule 500 mg PO BID 05/19/23 03/28/25 History pyridoxine (vitamin B6) 100 mg 100 mg PO DAILY 05/19/23 03/28/25 History tablet liothyronine 5 mcg tablet 5 mcg PO DAILY 07/04/24 03/29/25 History quetiapine 25 mg tablet 25 mg PO BID 07/04/24 03/29/25 History pregabalin 75 mg capsule 75 mg PO TID 02/09/25 03/29/25 History valacyclovir 1 gram tablet 1,000 mg PO QDAY 02/09/25 03/28/25 History vitamins A,C,Q-iqta-ovjlkd 4,296 1 cap PO BID 02/09/25 03/28/25 History mcg-226 mg-90 mg capsule (PreserVision AREDS) clonazepam 1 mg tablet 1 mg PO Q12H 03/29/25 03/29/25 History dextromethorphan polistirex 30 10 ml PO Q12H 03/29/25 03/29/25 History mg/5 mL oral susp ext.release 12hr (12-Hour Cough Relief) docusate sodium 100 mg capsule 100 mg PO DAILY 03/29/25 03/28/25 History (Colace) erythromycin 5 mg/gram (0.5 %) eye 1 applic RIGHT EYE DAILY 03/29/25 03/28/25 History ointment guaifenesin 1,200 mg tablet, 1,200 mg PO BID 03/29/25 03/29/25 History extended release 12 hr (Mucinex) lactobacillus combination no.9 1 cap PO DAILY 03/29/25 03/28/25 History levothyroxine 125 mcg tablet 125 mcg PO DAILY 03/29/25 03/29/25 History nirmatrelvir 300 mg (150 mg 2 tab PO BID 03/29/25 03/29/25 History x2)-ritonavir 100 mg tablet,dose pack (Paxlovid) potassium chloride 20 mEq 20 meq PO BID 03/29/25 03/28/25 History tablet,extended release prednisolone acetate 1 % eye 1 drp ophthalmic (eye) DAILY 03/29/25 03/29/25 History drops,suspension Allergy/AdvReac Type Severity Reaction Status Date / Time bacitracin (From Neosporin Allergy Unknown Unknown Verified 03/29/25 13:23 ([id number])) neomycin (From Neosporin Allergy Unknown Unknown Verified 03/29/25 13:23 ([id number])) polymyxin B (From Neosporin Allergy Unknown Unknown Verified 03/29/25 13:23 ([id number])) Antihistamines - Alkylamine Allergy PT UNSURE Verified 03/29/25 13:23 OF REACTION diphenhydramine (From Allergy PT UNSURE Verified 03/29/25 13:23 Benadryl) OF REACTION Family History Unknown Thyroid disorder Cancer High cholesterol Arthritis Mother Cancer Diabetes Father , Father at the age of 50 from successful suicide attempt. Suicidal intent Other Alcohol abuse Anxiety Depression Heart disease Hypertension Mental disorder Parkinson disease Psychiatric care Surgical History Status post glaucoma surgery H/O mastectomy H/O thyroidectomy Social History household members: none housing: house Smoking Status: Former smoker second hand exposure: Yes alcohol intake: former substance use type: does not use ROS ROS Narrative General: Reportedly had a fever at home HENT: She is unsure if she has had any stuffy nose, possibly some sore throat EYES: Denies changes in vision Resp: Significant cough, denies shortness of breath Cardiac: Denies chest pain GI: Denies abdominal pain, did briefly of diarrhea this resolved, occasional nausea : Denies changes in urination Extremity: Denies swelling MSK: Generalized weakness, denies any focal complaints Neuro: Denies any numbness/tingling Heme: Denies any bleeding or bruising Skin: Denies rashes Psychiatric: No complaints voiced Vital Signs Vital Signs Vital Signs: 03/29/25 13:19 03/29/25 13:24 03/29/25 13:26 Temperature 99.1 F 99.1 F Temperature Source Oral Oral Pulse Rate 97 101 H Respiratory Rate 18 17 Respiratory Effort Blood Pressure 165/85 H 165/85 H Blood Pressure Mean 111 111 Pulse Ox 86 92 94 Oxygen Delivery Method Room Air Nasal Cannula Nasal Cannula Oxygen Flow Rate (L/min) 2 2 03/29/25 13:26 03/29/25 13:43 03/29/25 15:19 Temperature Temperature Source Pulse Rate 84 Respiratory Rate 14 Respiratory Effort Normal Non-Labored Blood Pressure 112/74 Blood Pressure Mean 86 Pulse Ox 97 Oxygen Delivery Method Nasal Cannula Nasal Cannula Oxygen Flow Rate (L/min) 2 03/29/25 15:24 03/29/25 16:00 03/29/25 16:56 Temperature 98.1 F 98.2 F 98.2 F Temperature Source Oral Oral Pulse Rate 91 77 77 Respiratory Rate 13 15 15 Respiratory Effort Blood Pressure 112/72 105/65 105/65 Blood Pressure Mean 85 78 78 Pulse Ox 97 97 97 Oxygen Delivery Method Nasal Cannula Nasal Cannula Oxygen Flow Rate (L/min) 03/29/25 17:00 Temperature Temperature Source Pulse Rate 79 Respiratory Rate 14 Respiratory Effort Blood Pressure 126/68 H Blood Pressure Mean 87 Pulse Ox 97 Oxygen Delivery Method Nasal Cannula Oxygen Flow Rate (L/min) Weight Weight: 83.4 kg Body Mass Index (BMI) 27.9 Physical Exam Narrative General: Alert, no apparent distress, unsure about answers to certain questions HEENT: Atraumatic, normocephalic, dry mucous membranes Eyes: Anicteric, normal conjunctiva, extraocular movements grossly intact Neck: Supple Respiratory: Diffuse wheezing and active cough Cardiovascular: Regular rate and rhythm GI: Soft, nontender, nondistended Extremities: No edema Musculoskeletal: Moving all extremities Neuro: No overt focal neurological deficits Skin: No rashes appreciated Psych: Cooperative Results Lab / Micro Data 03/29/25 13:10 03/29/25 13:10 Labs: Laboratory Results - last 24 hr 03/29/25 13:10: WBC 12.0 H, RBC 3.93 L, Hgb 12.3, Hct 37.0, MCV 94.1, MCH 31.3, MCHC 33.2, RDW Std Deviation 44.2 H, RDW Coeff of Felix 12.7, Plt Count 362, MPV 9.8, Immature Gran % (Auto) 0.700, Neut % (Auto) 84.5 H, Lymph % (Auto) 9.0 L, [place] % (Auto) 5.3, Eos % (Auto) 0.3, Baso % (Auto) 0.2, Absolute Neuts (auto) 10.2 H, Absolute Lymphs (auto) 1.08, Nucleated RBC % 0, PT 16.7 H, INR 1.3, APTT 30.4, Sodium 124 L, Potassium 4.3, Chloride 87 L, Carbon Dioxide 19.7 L, Anion Gap 17 H, BUN 14, Creatinine 0.48 L, Estim Creat Clear Calc 65.60, Est GFR (MDRD) Non-Af 97, BUN/Creatinine Ratio 29.6 H, Glucose 118 H, Lactic Acid < 1.0, Calcium 8.3, Total Bilirubin 0.31, AST 17, ALT 9, Alkaline Phosphatase 96, Troponin T High Sens 12, Total Protein 7.5, Albumin 3.7, Globulin 3.8, Albumin/Globulin Ratio 1.0 03/29/25 14:20: Urine Color Yellow, Urine Clarity Clear, Urine pH 6.0, Ur Specific [place] 1.030, Urine Protein 30 H, Urine Glucose (UA) Normal, Urine Ketones 150 A*, Urine Occult Blood 25 H, Urine Nitrite Negative, Urine Bilirubin Negative, Urine Urobilinogen Normal, Ur Leukocyte Esterase Negative, Urine RBC 0-5 SEEN, Urine WBC 0 SEEN, Ur Squamous Epith Cells 0 SEEN, Urine Bacteria 1+, Urine Mucus 0 SEEN 03/29/25 15:48: Troponin T Hi Sens 2 Hr 14 Micro: Microbiology 03/29/25 13:40 Mucosa - Nose SARS-CoV-2, Influenza & RSV (PCR) - Final Imaging Radiology Impression Chest X-Ray 03/29/25 13:55 IMPRESSION: No Acute Findings. Reading Location: [facility] Chest CTA 03/29/25 14:44 IMPRESSION: No evidence of pulmonary embolism. Patchy ground-glass opacities throughout both lungs most consistent with multifocal pneumonia in the setting of COVID infection. Mild bilateral dependent atelectasis. Chronic findings including a stable compression deformity of T12 and postsurgical changes of the left ribs. Reading [facility] Assessment & Plan Assessment/Plan (1) Hypoxia: (2) Hyponatremia: PLAN: Plan # Hypoxia secondary to COVID-19 -Patient requiring 2 L nasal cannula in the ED -Patient COVID-19 positive, initially tested positive on Saturday and possibly had symptoms for at least several days before that, given unclear timeline will hold off on remdesivir but will treat with dexamethasone -Contact precautions -Diffuse wheezes -DuoNebs and as needed albuterol - Incentive spirometer # Generalized weakness -Suspect secondary to poor p.o. intake and COVID-19 - IV fluids, supportive care - PT/OT - Case management consult # Hyponatremia - Given elevated ketones and patient appearing to have dry mucous membranes and clinical picture suspect poor p.o. intake and component of volume depletion, will give IV fluids and repeat sodium, if no improvement will obtain further workup -IV fluids ordered # High anion gap metabolic acidosis -Elevated ketones in urine, suspect poor p.o. intake given whole clinical picture, lactic within normal limits -Does not appear to have a history of diabetes -Hydrating patient, encourage p.o. -Will repeat BMP and evaluate further if no improvement or if worsening #Hypothyroidism -Continue Synthroid #Hypertension - Continue home amlodipine #Dementia -Supportive care -Continue home medications # History of anxiety -Continue home medications, does appear she regularly feels Klonopin at this dose so I will continue this given stopping it suddenly could worsen mental status and lead to withdrawal #DVT ppx: Lovenox subcu Vivienne Lowe MD Charges/Coding Visit Charges Inpatient E&M: 45675 Init Hosp L2
[2025-03-29] MEDS: 0.9% Normal Saline (1000mL) 1,000 ML 75 ML IV (18:31)
--- OUTSIDE RECORDS SUMMARY | 2025-03-29 18:47 | XMS RPT_ITS | CCD ---
Author Organization [facility] Care Team Providers Care Heel Coverer Machine Operator Name Role Phone Unavailable Primary Care Provider UnavailErica Gee DO Primary Care Provider Dr. Erica Richardson Primary Care Provider [phone] Dr. Erica Richardson Referring Provider Dr. Don Gallegos Attending Provider [phone] Don Gallegos Attending Provider [phone] Alcides IRONWORKER APPRENTICE, IRONWORKER APPRENTICE-C Aiden Attending Provider Unav Dr. Erica Batista Primary Care Provider Erica Richardson DO Primary Care Provider Erica Richardson DO Primary Care Provider [phone] ERICA RICHARDSON Primary Care Unavailable DEBRA, ERICA [...] Dr. Erica Richardson Primary Care Provider Alcides IRONWORKER APPRENTICE, IRONWORKER APPRENTICE-C Aiden Attending Provider Unav Erica Batista DO Primary Care Provider Dr. Froy Simmons Attending Provider [phone] Erica Richardson Primary Care Provider Dr. Froy Simmons Attending Provider Debra, Dr. Maldonado Referring Provider Debra, Dr. Maldonado Primary Care Provider Dr. Katie Randle Emergency Provider [phone] Darío, Dr. Portillo Admit Provider Darío, Dr. Portillo Attending Provider Darío, Dr. Portillo Other Provider Debra, Dr. Maldonado Primary Care Provider Dr. Jorge Cardona Emergency Provider Dr. Aggie Bolton Attending Provider Dr. Aggie Bolton Admit Provider Dr. Aggie Bolton Other Provider Dr. Froy Velázquez Attending Provider Dr. Froy Velázquez Other Provider Dr. Vernon Osman Other Provider Unavailable Erica Richardson DO Primary Care Provider Dr. Erica Richardson Primary Care Provider Dr. Jorge Cardona Emergency Provider Dr. Aggie Bolton Attending Provider Dr. Aggie Bolton Admit Provider Dr. Aggie Bolton Other Provider Dr. Froy Velázquez Attending Provider Dr. Froy Velázquez Other Provider Dr. Vernon Osman Other Provider Unavailable PROVIDER, UNKNOWN Admitting Unavailable PROVIDER, UNKNOWN Attending Unavailable Erica Richardson DO Primary Care Provider Dr. Erica Richardson DO Primary Care Provider Dr. Erica Richardson DO Attending Provider Debra JACKSON, Dr. Maldonado Referring Provider Dr. Froy Cameron DO Emergency Provider Debra JACKSON, Dr. Maldonado Primary Care Provider Debra JACKSON, Dr. Maldonado Attending Provider Debra JACKSON, Dr. Maldonado Referring Provider Anupama JACKSON, Dr. Mcduffie Attending Provider Leia Martinez Other Provider Unavailable Debra JACKSON, Dr. Maldonado Primary Care Provider Debra JACKSON, Dr. Maldonado Attending Provider Macie CRAMER, Alexis Emergency Provider Che CRAMER, Dr. Aggie Moreno Admit Provider Che CRAMER, Dr. Aggie Moreno Other Provider Melania JACKSON, Dr. Mcduffie Attending Provider Melania JACKSON, Dr. Mcduffie Other Provider Brendon JACKSON, Dr. Wilkins Emergency Provider Arely CRAMER, Dr. Carrion Primary Care Provider Che CRAMER, Dr. Aggie Moreno Attending Provider Debra JACKSON, Dr. Maldonado Primary Care Provider Liboriohattie DO, Dr. Maldonado Attending Provider Debra JACKSON, Dr. Maldonado Referring Provider Brendon JACKSON, Dr. Wilkins Attending Provider Sheyla Mcgee MD Attending Provider UnavailSheyla Schmitt MD Referring Provider Avinash Mcgrath NP-Aiden Ledbetter Attending Provider Arely CRAMER, Dr. Carrion Attending Provider Ayaka CRAMER, Dr. Iyer Attending Provider Debra JACKSON, Dr. Maldonado Primary Care Provider Debra JACKSON, Dr. Maldonado Attending Provider Ayaka CRAMER, Dr. Iyer Attending Provider Debra JACKSON, Dr. Maldonado Primary Care Physician Alexis Quijano MD Emergency Department Physician Che CRAMER, Dr. Aggie Moreno Admitting Physician Che CRAMER, Dr. Aggie Moreno Nurse Practitioner Melania JACKSON, Dr. Mcduffie Attending Physician Melania JACKSON, Dr. Mcduffie Nurse Practitioner Brendon JACKSON, Dr. Wilkins Attending Physician Brendon JACKSON, Dr. Wilkins Emergency Department Physic joaquín Arely CRAMER, Dr. Carrion Primary Care Physician Arely CRAMER, Sheyla Attending Physician Unavail able Arely CRAMER, Sheyla Referring Provider Unavaila leonardo Mcgrath IRONWORKER APPRENTICE-CAiden Attending Physician Arely CRAMER, Dr. Carrion Attending Physician Ayaka CRAMER, Dr. Iyer Attending Physician Debra JACKSON, Dr. Maldonado Attending Physician Debra JACKSON, Dr. Maldonado Referring Provider Esnisreen PA-C, Ray Attending Physician Zakiya PA-C, Ray Referring Provider ALEXX CRAMER, PAUL Lopez Primary Care Physician Unavailab caterina RICHARDSON DO, DR ERICA Shannon Attending Unavailable PAUL COFFEY MD Primary Care Unavailable Malys, Erica Primary Care Unavailable Malys, Erica Referring Unavailable Malys, Erica Attending Unavailable Oleghe SARAH Efyogibe Attending Unavailabl e Oleghe, Efewongbe Primary Care Unavailable Oleghe SARAH Efdorian Attending Unavailabl e Oleghe, Efewongbe Primary Care Unavailable Aggie Bolton Consulting Unavailable Aggie Bolton Admitting Unavailable Froy Velázquez Attending Unavailable Malys, Erica Primary Care Unavailable Oleghe Sheyla SMITH Attending Unavailabl e Oleghe, Efewongbe Primary Care Unavailable Oleghe OLS, Efewongbe Referring Unavailabl e Oleghe OLS, Efewongbe Attending Unavailabl e Oleghe, Efewongbe Primary Care Unavailable Malys, Erica Referring Unavailable Malys, Erica Primary Care Unavailable Malys, Erica Attending Unavailable Leia Martinez Consulting Unavailable Oleghe OLS, Efewongbe Attending Unavailabl e Oleghe, Efewongbe Primary Care Unavailable Malys, Erica Referring Unavailable Malys, Erica Attending Unavailable Oleghe, Efewongbe Primary Care Unavailable Malys, Erica Attending Unavailable Oleghe, Efewongbe Primary Care Unavailable Malys, Erica Referring Unavailable Malys, Erica Attending Unavailable Oleghe, Efewongbe Primary Care Unavailable Franky Olivas Attending Unavailable Oleghe, Efewongbe Primary Care Unavailable Froy Velázquez Attending Unavailable White, Aggie L Admitting Unavailable White, Aggie L Consulting Unavailable Malys, Erica Primary Care Unavailable Jonnie Velázquezic Consulting Unavailable White, Aggie L Attending Unavailable Alcides IRONWORKER APPRENTICE, Aiden Attending Unavailable Oleghe, Efewongbe Primary Care Unavailable Alcides IRONWORKER APPRENTICE, Aiden Attending Unavailable Oleghe, Efewongbe Primary Care Unavailable aCli Ariza Attending Unavailable Malys, Erica Referring Unavailable Malys, Erica Primary Care Unavailable Alcides IRONWORKER APPRENTICE, Aiden Attending Unavailable Oleghe, Efewongbe Primary Care Unavailable Cheikh Ybarra Attending Unavailable Malys, Erica Primary Care Unavailable Malys, Erica Primary Care Unavailable Froy Cameron Attending Unavailable Eshenaur PA, Ray Referring Unavailable Eshenaur PA, Ray Attending Unavailable Malys, Erica Primary Care Unavailable Malys, Erica Primary Care Unavailable Malys, Erica Referring Unavailable Malys, Erica Attending Unavailable Malys, Erica Primary Care Unavailable Malys, Erica Attending Unavailable Malys, Erica Primary Care Unavailable Malys, Erica Attending Unavailable Malys, Erica Primary Care Unavailable Malys, Erica Referring Unavailable Malys, Erica Attending Unavailable Oleghe, Efewongbe Primary Care Unavailable Oleghe, Efewongbe Attending Unavailable Santinoton IRONWORKER APPRENTICEAiden Attending Unavailable Oleghe, Efewongbe Primary Care Unavailable Arely CRAMER, Dr. Carrion Primary Care Physician Dr. Erica Richardson DO Attending Physician [phone] Dr. Erica Richardson DO Referring Provider Donovan Sigala PA-C Attending Physician Donovan Sigala PA-C Referring Provider Dr. Erica Richardson DO Primary Care Physician Cali Ariza MD Attending Physician [phone] SELF Referring Unavailable ERICA RICHARDSON Primary Care Unavailable SELF Referring Unavailable ERICA RICHARDSON Primary Care Unavailable Allergies Allergy Classification Reported Allergen(s) Allergy Type Date of Onset Reaction(s) Facility (1 source) Antihistamines, Diphenhydramine-Ty pe Propensity to adverse reactions to drug 04-16-20 20 Palpitations [place], [place] (20 sources) bacitracin / neomycin / polymyxin b; Translations: [NEOMYCIN-BACITRAC IN-POLYMYXIN] Drug Allergy 08-15-19 07 swelling and redness of skin [facility] Work Phone: (20 sources) diphenhydrAMINE; Translations: [DIPHENHYDRAMINE HCL] Drug Allergy 10-28-19 13 [facility] (20 sources) Propylamine derivative antihistamine; Translations: [ANTIHISTAMINES - ALKYLAMINE] Propensity to adverse reactions 10-07-19 08 Intolerance [facility] (20 sources) Bacitracin Drug Allergy 08-08-19 22 Unknown [facility] (20 sources) Neomycin Drug Allergy 08-08-19 22 Unknown [facility] (20 sources) Polymyxin B Drug Allergy 08-08-19 22 Unknown [facility] (20 sources) diphenhydrAMINE; Translations: [diphenhydramine] Drug Allergy 01-11-20 22 Hyperactivity level (observable entity) [facility] (20 sources) Antihistamines - Alkylamine Allergy to substance 01-11-20 22 PT UNSURE OF REACTION [facility] (1 source) Bacitracin / Polymyxin B; Translations: [bacitracin-polymy jennyfer B topical] Drug Allergy swelling and redness of skin [facility] (1 source) Bacitracin Drug Allergy 02-10-20 25 [facility] Repository (1 source) diphenhydrAMINE Drug Allergy 02-10-20 [facility] (1 source) Neomycin Drug Allergy 02-10-20 [facility] (1 source) Antihistamines - Alkylamine Drug allergy (disorder) 02-10-20 [facility] (1 source) polymyxin B Drug allergy (disorder) 02-10-20 [facility] Medications Current Medications Medication Drug Class(es) Dates Sig (Normalized) Sig (Original) acetaminophen 500 mg oral capsule (20 sources) Start: 05-19-2023 take 1 capsule by mouth twice daily Acetaminophen 500 mg capsule Active 500 mg PO TWICE A DAY May 19, 2023 12:00am Complies with drug therapy Start: 10-17-2021 take 3 tablets by mo uth every six hours as needed acetaminophen (TYLENOL) 325 mg tablet Take 3 tablets by mouth every 6 hours as needed for pain. 10/17/2021 Active Start: 04-16-2020 acetaminophen (TYLENOL) tablet 650 mg Comment on above: Take 3 tablets by mo uth every 6 hours as needed for pain. [id number] 200 actuat albuterol 0.09 mg/actuat metered dose inhaler (20 sources) beta2-Adrenergic Agonist Start: 11-23-2022 Albuterol Sulfate (Proventil Hfa) 90 mcg/actuation HFA aerosol inhaler Active 2 NMA INHALATION EVERY 6 HOURS as needed for shortness of breath or wheezing 8.5 0 November 22, 2022 11:00pm Complies with drug therapy Start: 11-23-2022 Start: 11-23-2022 take 1 puff(s) by in halation every six hours Albuterol Sulfate (Proventil Hfa) 90 mcg/actuation HFA aerosol inhaler Active 2 PUFF INHALATION EVERY 6 HOURS 8.5 November 23, 2022 12:00am Alpha Lipoic Acid 200 mg oral capsule (1 source) Start: 08-23-2019 Alpha Lipoic Acid 200 mg oral capsule Dose : 600 mg = 3 cap(s), Oral, qDay, 0 Refill(s) Start Date: 08/23/19 Status: Ordered Medication Dispense Status: Completed Total Allowed Fills: 1 Fills Dispensed: 0 amLODIPine 5 mg oral tablet (20 sources) Dihydropyridine Calcium Channel Carli Start: 11-22-2022 take 1 tablet by mouth once daily Amlodipine 5 mg tablet Active 5 mg PO DAILY November 21, 2022 11:00pm Complies with drug therapy ascorbic acid 226 mg / beta carotene [id number] unt / cuprous oxide 0.8 mg / dl-alpha tocopheryl acetate 200 unt / zinc oxide 34.8 mg oral capsule (3 sources) Vitamin C Start: 02-09-2025 Vitamins A,C,D-Zuip-Ezykm r (Preservision Areds) 4,296 mcg-226 mg-90 mg capsule Active 1 NMA PO TWICE A DAY February 08, 2025 11:00pm Complies with drug therapy Start: 05-01-2017 End: 09-09-2019 Vitamins A,C,R-Qisb-Wrldga ( Preservision Areds) 14,320-226-200 ihsc-oa-znhj capsule Discontinued 1 NMA PO DAILY 0 May 01, 2017 12:00am September 09, 2019 7:44pm Start: 05-01-2017 End: 09-09-2019 Calcium Carb And Citrate-Vitd3 (Citracal-D3 Slow Release) [...] Start: 08-07-2021 take 1 tablet by aileen once daily Calcium Carb And Citrate-Vitd3 (Citracal-D3 Slow Release) 600 mg-12.5 mcg (500 unit) tablet extended release Active 1 TABLET PO DAILY August 07, 2021 12:00am cholecalciferol 0.025 mg oral capsule (20 sources) Vitamin D Start: 11-22-2022 take 1 capsule by mouth once daily Cholecalciferol (Vitamin D3) 25 mcg (1,000 unit) capsule Active 25 ug PO DAILY November 21, 2022 11:00pm SUPPLEMENT Complies with drug therapy Start: 05-01-2017 End: 09-09-2019 take 1 capsule by mouth once daily Cholecalciferol (Vitamin D3) 1,000 unit capsule Discontinued 1000 U PO daily May 01, 2017 12:00am September 09, 2019 7:43pm Start: 05-01-2017 End: 09-09-2019 Start: 02-02-2014 take 1 tablet by [facility] once daily Cholecalciferol, Vitamin D3, 1,000 unit tab Take 1 tablet by mouth once daily. 0 02/02/2014 Active Comment on above: Take 1 tablet by [facility] once daily. dexamethasone phosphate 1 mg/ml ophthalmic solution (20 sources) Corticosteroid Start: 03-09-2021 Dexamethasone Sodium Phosphate 0.1 % drops Active 1 NMA OPHTHALMIC DAILY March 09, 2021 12:00am glaucoma RIGHT EYE Complies with drug therapy Start: 03-09-2021 Dexamethasone Sodium Phosphate Active 1 DRP OPHTHALMIC TWICE A DAY March 09, 2021 1:00am R eye only Start: 08-23-2019 dexamethasone 0.1% ophthalmic solution Dose = 1 drop(s), Eye, right, QID, 0 Refill(s) Start Date: 08/23/19 Status: Ordered Medication Dispense Status: Completed Total Allowed Fills: 1 Fills Dispensed: 0 docusate sodium 100 mg oral capsule (20 sources) Start: 04-16-2020 docusate sodiu m (COLACE) capsule 100 mg Start: 05-01-2017 End: 09-09-2019 take 3-4 tablets by mouth twice daily Docusate Sodium (Colace) 100 mg capsule Discontinued 0 PO TWICE A DAY May 01, 2017 12:00am September 09, 2019 7:43pm 3-4 tabs PO BID Start: 05-01-2017 End: 09-09-2019 take 1 capsule by mouth once daily Docusate Sodium 100 MG capsule Discontinued 100 mg PO DAILY 20 0 February 12, 2019 11:00pm September 09, 2019 7:43pm take 3 capsules by m outh twice daily as needed docusate sodium (COLACE) 100 mg ORAL Cap Indications: Hypocalcemia Take three capsules by mouth twice daily as needed. Active Comment on above: Take three capsules by mouth twice daily as needed. docusate sodium 50 mg / sennosides, correction 8.6 mg oral tablet (1 source) Start: 0 sennosides-docusate sodium (SENOKOT-S) 8.6-50 MG tablet 2 tablet escitalopram 10 mg oral tablet (20 sources) Serotonin Reuptake Inhibitor Start: 3 take 1 tablet by mouth once daily Escitalopram Oxalate (Lexapro) 10 mg tablet Active 10 mg PO DAILY November 21, 2022 11:00pm ANXIETY Complies with drug therapy famotidine 20 mg oral tablet (20 sources) Histamine-2 Receptor Antagonist Start: 4 take 1 tablet by mouth at bedtime Famotidine (Pepcid) 20 mg tablet Active 20 mg PO AT BEDTIME May 19, 2023 12:00am Complies with drug therapy Start: 08-23-2019 End: 11-22-2022 take 1 tablet by mouth twice daily Famotidine (Pepcid) 20 mg tablet Discontinued 20 mg PO TWICE A DAY March 08, 2021 6:35pm November 22, 2022 2:59pm GERD Start: 08-27-2018 End: 05-30-2021 take 1 tablet [...] tablet Active 5 ug PO DAILY July 03, 2024 11:00pm Complies with drug therapy Start: 11-22-2022 End: 05-19-2023 take 1 tablet by mouth once daily Liothyronine 5 mcg tablet Discontinued 5 ug PO DAILY November 21, 2022 11:00pm May 19, 2023 12:30am LORazepam (1 source) Benzodiazepine Start: 04-16-2020 LORazepam [...] directed. magnesium oxide 500 mg oral tablet (20 sources) Start: 11-22-2022 take 1 tablet by mouth once daily Magnesium Oxide 500 mg tablet Active 500 mg PO DAILY November 21, 2022 11:00pm SUPPLEMENT Complies with drug therapy Start: 11-22-2022 take 1000 mg by mouth once renay ly Magnesium Oxide Active 1000 MG PO DAILY November 22, 2022 12:00am meclizine hydrochloride 25 mg oral tablet (20 sources) Antiemetic Start: 10-02-2021 take 1 tablet by mouth three times daily Meclizine 25 MG tablet Active 25 mg PO THREE TIMES A DAY November 21, 2022 11:00pm Dizziness Complies with drug therapy Start: 05-21-2021 End: 11-22-2022 Start: 05-21-2021 End: 11-22-2022 take 1 tablet by mouth every eight hours as needed for dizziness Meclizine 25 MG tablet Discontinued 25 mg PO EVERY 8 HOURS NEEDED as needed for Dizziness 20 0 May 21, 2021 5:18pm November 22, 2022 3:09pm Comment on above: Take 25 mg by [...] hydrochloride 5 mg oral tablet (20 sources) Z-nweljt-A-aspartate Receptor Antagonist Start: 3 take 1 tablet by mouth twice daily Memantine 5 mg tablet Active 5 mg PO TWICE A DAY November 21, 2022 11:00pm Complies with drug therapy Start: 10-17-2021 take 1 tablet by aileen th once daily at bedtime memantine (NAMENDA) 5 mg tablet Take 1 tablet by mouth daily at bedtime. 10/17/2021 Active Comment on above: Take 1 tablet by aileen th daily at bedtime. 1 ml morphine sulfate 4 mg/ml cartridge (1 source) Opioid Agonist Start: 0 morphine (PF) injection 1 mg nabumetone 750 mg oral tablet (20 sources) Nonsteroidal Anti-inflammatory Drug Start: 3 take 1 tablet by mouth twice daily Nabumetone 750 mg tablet Active 750 mg PO TWICE A DAY November 21, 2022 11:00pm Complies with drug therapy Start: 10-05-2021 take 1 tablet by aileen th twice daily nabumetone (RELAFEN) 750 mg tablet Take 750 mg by mouth twice daily. 0 10/05/2021 Suspended Comment on above: Take 750 mg by mouth twice daily. PHENobarbital 64.8 mg oral tablet (2 sources) Start: 04-16-2020 PHENobarbital (LUMINAL) tablet 64.8 mg Start: 04-16-2020 End: 04-16-2020 PHENobarbital (LUMINAL) inje ction 32.5 mg polyvinyl alcohol 0.014 ml/m l / povidone 6 mg/ml ophthalmic solution (18 sources) Start: 10-17-2021 polyvinyl alco hol-povidone (REFRESH) 1.4-0.6 % ophthalmic solution Use 1 Drop in both eyes as needed. 10/17/2021 Active Start: 10-17-2021 polyvinyl alco hol-povidone (REFRESH) 1.4-0.6 % ophthalmic solution Use 1 Drop in both eyes as needed. 0 10/17/2021 Active Comment on above: Use 1 Drop in both e yes as needed. potassium chloride 8 meq extended release oral capsule (20 sources) Start: 02-09-2025 take 1 capsule by mouth once daily Potassium Chloride 8 mEq capsule, extended release Active 8 meq PO daily February 08, 2025 11:00pm Complies with drug therapy Start: 07-04-2024 End: 09-25-2024 take 1 tablet by mouth twice daily Potassium Chloride 20 mEq tablet extended release Discontinued 20 meq PO TWICE A DAY July 03, 2024 11:00pm September 25, 2024 9:28am Start: 08-01-2020 End: 07-04-2024 take 2 tablets by mouth once daily Potassium Chloride 20 mEq tablet,ER particles/crystals Discontinued 40 meq PO DAILY July 31, 2020 11:00pm July 04, 2024 12:25pm SUPPLEMENT Start: 08-01-2020 take 40 mEq by mouth once gabino y Potassium Chloride Active 40 MEQ PO DAILY August 01, 2020 12:00am Start: 08-01-2020 take 20 mEq by mouth twice renay ly Potassium Chloride Active 20 MEQ PO TWICE A DAY August 01, 2020 12:00am Start: 04-17-2020 End: 04-17-2020 potassium chloride (KLOR-CON M) extended release tablet 40 mEq Start: 08-23-2019 potassium chlo ride 20 mEq oral tablet, extended release Dose : 20 mEq = 1 tab(s), Oral, Every other day, take with food, 0 Refill(s) Start Date: 08/23/19 Status: Ordered Medication Dispense Status: Completed Total Allowed Fills: 1 Fills Dispensed: 0 Start: 05-19-2019 End: 09-09-2019 take 1 tablet by mouth once daily Potassium Chloride 20 MEQ tablet Discontinued 20 meq PO DAILY 10 0 May 19, 2019 12:00am September 09, 2019 7:44pm Start: 05-19-2019 End: 09-09-2019 take 40 mEq by mouth once daily [...] 75 mg oral capsule (20 sources) Start: 02-09-2025 take 1 capsule by mouth three times daily Pregabalin 75 mg capsule Active 75 mg PO THREE TIMES A DAY February 08, 2025 11:00pm Complies with drug therapy Start: 03-03-2022 End: 10-25-2024 take 1 capsule by mouth three times daily Pregabalin 75 mg capsule Discontinued 75 mg PO THREE TIMES A DAY 90 30 0 September 25, 2024 11:10am October 23, 2024 11:00pm October 24, 2024 11:07pm Neuropathic pain Neuralgia and neuritis, unspecified PAIN Start: 03-08-2021 End: 11-22-2022 take 1 capsule by mouth twice daily Pregabalin 50 mg capsule Discontinued 50 mg PO TWICE A DAY March 08, 2021 12:00am November 22, 2022 3:02pm PAIN Start: 05-01-2017 End: 09-09-2019 take 1 capsule by mouth three times daily Pregabalin (Lyrica) 100 mg capsule Discontinued 100 mg PO THREE TIMES A DAY May 01, 2017 12:00am September 09, 2019 7:43pm take 1 capsule by mo ut twice daily pregabalin (LYRICA) 75 mg capsule Take 75 mg by mouth twice daily. Active Comment on above: Take 50 mg by mouth twice daily. Take 75 mg by mouth twice daily. Promethazine (1 source) Phenothiazine Start: 04-16-20 promethazine (PHENERGAN) tablet 12.5 mg QUEtiapine 25 mg oral tablet (20 sources) Atypical Antipsychotic Start: 07-05-19 take 1 tablet by mouth at bedtime Quetiapine 25 mg tablet Active 25 mg PO AT BEDTIME July 03, 2024 11:00pm Complies with drug therapy Start: 07-04-2024 Start: 11-22-2022 End: 09-25-2024 Quetiapine 100 mg tablet Dis continued 25 mg PO DAILY November 21, 2022 11:00pm September 25, 2024 9:29am DEPRESSION Start: 11-22-2022 take 25 mg by [...] End: 04-19-20 thiamine (B-1) injection 100 mg valACYclovir 1000 mg oral tablet (20 sources) Herpesvirus Nucleoside Analog DNA Polymerase Inhibitor, Herpes Simplex Virus Nucleoside Analog DNA Polymerase Inhibitor, Herpes Zoster Virus Nucleoside Analog DNA Polymerase Inhibitor Start: 02-10-20 Valacyclovir 1 gram tablet Active 1000 mg PO daily February 08, 2025 11:00pm Complies with drug therapy Start: 08-01-2020 End: 09-25-2024 Valacyclovir 1 gram tablet Discontinued 1000 mg PO DAILY July 31, 2020 11:00pm September 25, 2024 9:29am SHINGLES Start: 08-01-2020 take 1000 mg by mout h once daily Valacyclovir Active 1000 MG PO DAILY August 01, 2020 12:00am Comment on above: Take 1,000 mg by aileen th once daily. vitamin b6 100 mg oral tablet (20 sources) Start: 05-19-2023 take 1 tablet by mouth once daily Pyridoxine (Vitamin B6) 100 mg tablet Active 100 mg PO DAILY May 19, 2023 12:00am Complies with drug therapy Start: 05-01-2017 End: 09-09-2019 take 1 tablet by mouth once daily Pyridoxine (Vitamin B6) 100 mg tablet Discontinued 100 mg PO daily May 01, 2017 12:00am September 09, 2019 7:44pm Comment on above: Take 100 mg by mouth once daily. Completed/Discontinued Medications Medication Drug Class(es) Dates Sig (Normalized) Sig (Original) acetaminophen 325 mg / HYDROcodone bitartrate 10 mg oral tablet (20 sources) Opioid Agonist Start: 09-22-2024 End: 09-25-2024 Hydrocodone-Acetami nophen 10-325 mg tablet Discontinued {tbl} PO THREE TIMES A DAY September 21, 2024 11:00pm September 25, 2024 9:27am Start: 09-22-2024 End: 09-25-2024 Start: 10-06-2021 take 1 tablet by aileen th every four hours as needed HYDROcodone-Acetaminophen (NORCO) 10-325 mg per tablet Take 1 tablet by mouth every 4 hours as needed (severe pain). 0 10/06/2021 Suspended Start: 06-11-2021 End: 07-04-2024 Start: 06-11-2021 take 1 tablet by aileen th every six hours Hydrocodone-Acetaminophen Active 1 TABLET PO EVERY 6 HOURS June 11, 2021 1:00am Start: 06-11-2021 take 1 tablet by aileen th every four hours as needed Hydrocodone-Acetaminophen Active 1 TABLET PO EVERY 4 HOURS NEEDED June 11, 2021 1:00am Start: 03-08-2021 End: 03-09-2021 Hydrocodone-Acetaminophen 10 -325 mg tablet Discontinued 1 {tbl} PO 4 TIMES DAILY March 08, 2021 12:00am March 09, 2021 4:10pm PAIN Start: 03-08-2021 End: 03-09-2021 Start: 03-08-2021 End: 03-09-2021 take 1 tablet by mouth four times daily Hydrocodone-Acetaminophen Discontinued 1 TABLET PO 4 TIMES DAILY March 08, 2021 1:00am March 09, 2021 5:10pm Start: 08-23-2019 End: 07-04-2024 Hydrocodone-Acetaminophen 10 -325 mg tablet Discontinued 1 {tbl} PO EVERY 6 HOURS June 11, 2021 12:00am July 04, 2024 12:25pm PAIN Start: 07-10-2018 End: 10-11-2021 take 1 tablet by mouth four times daily as needed HYDROcodone-acetaminophen (NORCO) 5-325 mg per tablet ONE TABLET BY MOUTH FOUR TIMES DAILY NEEDED 0 07/10/2018 10/11/2021 Discontinued (Other) Start: 05-01-2017 End: 09-09-2019 Hydrocodone-Acetaminophen 5- 325 mg tablet Discontinued 1 {tbl} PO EVERY 6 HOURS 0 May 01, 2017 12:00am September 09, 2019 7:43pm Start: 05-01-2017 End: 09-09-2019 Start: 05-01-2017 End: 09-09-2019 take 1 tablet [...] 12 3 0 February 13, 2019 February 14, 2019 11:00pm February 18, 2019 11:10pm Compression fracture of thoracic vertebra Start: 02-13-2019 End: 02-19-2019 Start: 02-13-2019 End: 02-19-2019 take 1 tablet by mouth every six hours as needed Oxycodone-Acetaminophen Discontinued 1 TABLET PO EVERY 6 HOURS NEEDED 12 3 February 13, 2019 February 19, 2019 12:10am Start: 05-29-2018 End: 06-01-2018 Oxycodone-Acetaminophen 1 TA BLET tablet Discontinued 1 - 2 {tbl} PO EVERY 6 HOURS NEEDED as needed for Pain 15 3 0 May 29, 2018 12:00am May 31, 2018 12:00am June 01, 2018 12:09am Fracture of right shoulder Start: 05-29-2018 End: 06-01-2018 Start: 05-29-2018 End: 06-01-2018 take 1 tablet [...] 81 mg PO daily May 01, 2017 12:00am September 09, 2019 7:43pm End: 10-17-2021 take 1 tablet by mouth [...] Comment on above: Take 1 capsule by [facility] three times daily as needed for cough. busPIRone hydrochloride 5 mg oral tablet (20 sources) Start: 08-02-19 End: 11-23-19 Buspirone 5 mg tablet Discontinued 5 NMA PO DAILY July 31, 2020 11:00pm November 22, 2022 2:57pm MOOD Start: 08-01-2020 End: 11-22-2022 take 5 [...] 7.5 mg by mouth daily at bedtime. calcitriol 0.0005 mg oral capsule (20 sources) Vitamin D3 Analog Start: 08-01-2020 End: 08-01-2020 Calcitriol 0.5 mcg capsule Discontinued NMA PO July 31, 2020 11:00pm August 01, 2020 3:10pm Start: 08-01-2020 End: 11-22-2022 Start: 08-23-2019 calcitriol 0.5 mcg oral capsule Dose : 0.5 mcg = 1 cap(s), Oral, qDay, 0 Refill(s) Start Date: 08/23/19 Status: Ordered Medication Dispense Status: Completed Total Allowed Fills: 1 Fills Dispensed: 0 Start: 05-01-2017 End: 04-09-2018 Start: 02-08-2016 End: 11-22-2022 take 1 capsule by mouth once daily Calcitriol 0.5 mcg capsule Discontinued 0.5 ug PO daily 90 April 09, 2018 9:12am April 09, 2018 12:07pm Disorder of parathyroid gland, 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 Calcium Carb, Citrate-Vit D3 (Citracal-D3 Slow Release) 600 mg-12.5 mcg (500 unit) tablet extended release (16 sources) Start: 08-07-2021 End: 11-22-2022 Calcium Carb, Citrate-Vit D3 (Citracal-D3 Slow Release) 600 mg-12.5 mcg (500 unit) tablet extended release Discontinued 1 {tbl} PO DAILY 1 August 06, 2021 11:00pm November 22, 2022 2:58pm Start: 08-07-2021 End: 11-22-2022 Calcium Carb, Citrate-Vit D3 (Citracal-D3 Slow Release) 600 mg-12.5 mcg (500 unit) tablet extended release Discontinued 1 {tbl} PO DAILY 1 August 07, 2021 12:00am November 22, 2022 [...] on above: Take 2 tablets by mo [facility] once daily. calcium gluconate 1 g in dextrose 5 % 100 mL IVPB (1 source) Start: 04-17-2020 End: 04-17-2020 calcium gluconate 1 g in dextrose 5 % 100 mL IVPB calcium polycarbophil 625 mg oral tablet (20 sources) Start: 05-01-2017 End: 09-09-2019 Calcium Polycarbophil (Fiber (Calcium Polycarbophil)) 625 mg tablet Discontinued 0 PO .COMPLEX May 01, 2017 12:00am September 09, 2019 7:43pm 4-5 tabs PO 2-3 x qd Start: 05-01-2017 End: 09-09-2019 ciprofloxacin 500 mg oral tablet (20 sources) Quinolone Antimicrobial Start: 10-21-2015 End: 05-01-2017 take 1 tablet by mouth twice daily Ciprofloxacin Hcl 500 MG tablet Discontinued 500 mg PO TWICE A DAY 14 0 October 20, 2015 11:00pm May 01, 2017 9:19am clonazePAM 1 mg oral tablet (20 sources) Benzodiazepine Start: 08-01-2020 End: 03-03-2022 take 1 tablet by mouth once daily as needed for anxiety Clonazepam 1 mg tablet Discontinued 1 mg PO DAILY as needed for Anxiety July 31, 2020 11:00pm March 03, 2022 11:47am Start: 08-23-2019 End: 2024 take 1 tablet by mouth twice daily Clonazepam 1 mg tablet Discontinued 1 mg PO TWICE A DAY 60 30 0 October 07, 2024 12:34pm November 04, 2024 11:00pm November 05, 2024 11:07pm Chronic anxiety Anxiety disorder, unspecified Start: 02-09-2009 End: 10-11-2021 take 1 tablet [...] on above: Take one tablet by m [facility] four times daily as needed. Take [...] Muscle Spasm 10 0 March 09, 2021 12:00am November 22, 2022 2:59pm doxycycline hyclate 100 mg oral tablet (1 [...] mg tablet Discontinued 1 NMA PO DAILY July 31, 2020 11:00pm November 22, 2022 2:59pm SUPPLEMENT Start: 08-01-2020 End: 11-22-2022 Start: 08-01-2020 End: 11-22-2022 Folic Acid-Vit B6-Vit [...] mg tablet Discontinued 1.25 mg PO DAILY July 31, 2020 11:00pm November 22, 2022 3:06pm HEART Start: 05-01-2017 End: 09-09-2019 take 1 tablet by mouth once daily in the morning Indapamide 1.25 mg tablet Discontinued 1.25 mg PO EVERY MORNING May 01, 2017 12:00am September 09, 2019 7:43pm Comment on above: Take 1.25 mg by [...] oral tablet (20 sources) Aromatase Inhibitor Start: 020 End: take 1 tablet by mouth once daily Letrozole 2.5 mg tablet Discontinued 2.5 mg PO DAILY July 31, 2020 11:00pm November 22, 2022 3:00pm levoFLOXacin 750 mg oral tablet (19 sources) Quinolone Antimicrobial Start: 024 End: 025 take 1 tablet by mouth once daily Levofloxacin 750 mg Tablet Discontinued 750 mg PO DAILY@0600 6 0 May 21, 2023 12:00am September 25, 2024 9:27am levothyroxine sodium 0.125 mg oral tablet (20 sources) l-Thyroxine Start: End: Levothyroxine 137 mcg tablet Discontinued NMA PO July 31, 2020 11:00pm August 01, 2020 3:20pm Start: 08-01-2020 End: 08-01-2020 Start: 08-01-2020 End: 08-01-2020 Levothyroxine Discontinued E ACH PO August 01, 2020 12:00am August 01, 2020 4:20pm Start: 08-23-2019 Synthroid 125 mcg (0.125 mg) oral tablet Dose : 125 mcg = 1 tab(s), Oral, qDay, 0 Refill(s) Start Date: 08/23/19 Status: Ordered Medication Dispense Status: Completed Total Allowed Fills: 1 Fills Dispensed: 0 Start: 04-30-2016 End: 09-25-2024 take 1 tablet by mouth once daily Levothyroxine 125 mcg tablet Discontinued 125 ug PO DAILY 90 0 February 19, 2023 8:25am September 25, 2024 9:27am Comment on above: Take 125 mcg by mout h once daily. lisinopril 10 mg oral tablet (20 sources) Angiotensin Converting Enzyme Inhibitor Start: 2019 End: 2022 take 1 tablet by mouth once daily Lisinopril 10 mg tablet Discontinued 10 mg PO DAILY March 08, 2021 12:00am November 22, 2022 3:01pm BP Comment on above: Take 10 mg by mouth once daily. magnesium sulfate 1 g in dextrose 5 % 100 mL IVPB (1 source) Start: 2019 End: 2019 magnesium sulfate 1 g in dextrose 5 % 100 mL IVPB meropenem 1000 mg injection (13 sources) Penem Antibacterial Start: 2024 End: 2024 take 1 g intravenously every eight hours Meropenem 1 gram Recon Soln Discontinued 1 g IV EVERY 8 HOURS 20 0 September 24, 2024 11:00pm February 09, 2025 12:21pm methylcellulose 500 mg oral tablet (20 sources) Start: 2017 End: 2019 take 1 tablet by mouth once Methylcellulose (Laxative) (Citrucel) 500 mg tablet Discontinued 500 mg PO ONCE May 01, 2017 12:00am September 09, 2019 7:43pm Start: 05-01-2017 End: 09-09-2019 nortriptyline 50 mg oral capsule (20 sources) Tricyclic Antidepressant Start: 08-23-2019 End: 11-22-2022 take 1 capsule by mouth at bedtime Nortriptyline 50 mg capsule Discontinued 50 mg PO AT BEDTIME July 31, 2020 11:00pm November 22, 2022 3:01pm DEPRESSION Start: 05-11-2015 End: 11-22-2022 Comment on above: Take 100 mg by mouth daily at bedtime. oxyCODONE hydrochloride 5 mg oral tablet (20 sources) Opioid Agonist Start: 1 End: take 1 tablet by mouth every six hours as needed for pain Oxycodone 5 mg tablet Discontinued 5 mg PO EVERY 6 HOURS as needed for pain 12 3 0 March 03, 2022 March 05, 2022 12:00am March 06, 2022 12:04am Closed fracture of left humerus Fracture of humerus Start: 04-16-2020 oxyCODONE (ANAIS ICODONE) immediate release tablet 5 mg Start: 09-09-2019 End: 09-16-2019 take 2 tablets by mouth every six hours as needed for pain Oxycodone 5 MG tablet Discontinued 10 mg PO EVERY 6 HOURS NEEDED as needed for Pain Score 6-10/10 28 7 0 September 09, 2019 September 14, 2019 11:00pm September 15, 2019 11:02pm Rheumatoid arthritis Rheumatoid arthritis, unspecified Start: 09-09-2019 End: 09-16-2019 Start: 09-09-2019 End: 09-16-2019 take 10 mg by mouth every six hours as needed Oxycodone Discontinued 10 MG PO EVERY 6 HOURS NEEDED 28 September 09, 2019 September 16, 2019 12:02am [...] as needed for Pain 10 0 October 20, 2015 11:00pm May 01, 2017 9:19am Start: 02-10-2015 End: 10-10-2021 take 1 tablet by mouth every eight hours as needed phenazopyridine (PYRIDIUM) 200 mg tablet Take 1 tablet by mouth three times daily as needed. 90 tablet 4 02/10/2015 10/10/2021 Discontinued (Other) Comment on above: Take 1 tablet by aileen th three times daily as needed. polyethylene glycol 3350 36364 mg powder for oral solution (20 sources) Osmotic Laxative Start: 04-16-2020 End: 02-09-2025 Polyethylene Glycol 3350 (Clearlax) 17 gram/dose powder Discontinued 17 g PO DAILY May 19, 2023 12:00am February 09, 2025 12:21pm Comment on above: Take 17 g by mouth o nce daily. vit C/E/zinc ox/thuan/lut/zeax (ICAPS AREDS2 ORAL) [...] tablet by aileen th once daily. Vitamins A,C,E-Ekwj-Dknovv (Preservision Areds) 14,320-226-200 bxvn-td-zlxv capsule (20 sources) Start: 05-01-2017 End: 09-09-2019 take 1 capsule by mouth once daily Vitamins A,C,J-Sohm-Dywjur (Preservision Areds) 14,320-226-200 oibc-ea-kfuy capsule Discontinued 1 CAP PO DAILY May 01, 2017 10:26am September 09, 2019 8:44pm Start: 05-01-2017 End: 09-09-2019 Vitamins A,C,O-Ckmu-Gorhxl (Preservision Areds) 14,320-226-200 aoli-sr-qndb capsule Discontinued 1 NMA PO DAILY 0 May 01, 2017 1:00am September 09, 2019 8:44pm Start: 05-01-2017 End: 09-09-2019 Vitamins A,C,V-Novj-Rdiouo (Preservision Areds) 14,320-226-200 icwf-yn-jxsm capsule Discontinued 1 NMA PO DAILY May 01, 2017 1:00am September 09, 2019 8:44pm Start: 05-01-2017 End: 09-09-2019 take 1 capsule by mouth once daily Vitamins A,C,M-Tfqn-Uxagnn (Preservision Areds) 14,320-226-200 fjpk-fw-nlws capsule Discontinued 1 CAP PO DAILY May 01, 2017 12:00am September 09, 2019 7:44pm Start: 05-01-2017 End: 09-09-2019 take 1 capsule by mouth once daily Vitamins A,C,M-Aprd-Weajng (Preservision Areds) 14,320-226-200 cykb-lj-byxt capsule Discontinued 1 CAP PO DAILY May 01, 2017 1:00am September 09, 2019 8:44pm zolpidem tartrate 5 mg oral tablet (2 sources) gamma-Aminobutyric Acid-ergic Agonist take 1 tablet by mouth every twenty-four hours as needed zolpidem (AMBIEN) 5 mg tablet Take 5 mg by mouth at bedtime as needed. 0 Suspended Comment on above: Take 5 mg by mouth at bedtime as needed. (1 source) Start: 08-08-19 End: 11-23-19 Problems Active Problems Problem Classification Problem Date [...] 3 Resolved: 3 01-20-2015 Chronic Cardiac dysrhythmias (17 sources) Juliana rhythm disorder; Translations: [Other specified [...] Pyuria; Translations: [Pyuria] Onset: 5 05-19-2023 Episodic Glaucoma (1 source) Glaucoma 10-27-2018 Chronic Immunizations and screening for infectious disease (1 source) Suspected disease caused by 2019-nCoV; Translations: [Suspected COVID-19 virus infection] 11-22-2022 Episodic Intracranial injury (20 sources) Traumatic hematoma of subdural space of neuraxis; Translations: [Concussion with no loss of consciousness] Onset: 0 04-17-2020 Episodic Melanomas of skin (20 sources) Malignant melanoma of skin; Translations: [Malignant melanoma of skin, unspecified] Onset: 5 05-28-2016 Chronic Open wounds of head; neck; and trunk (20 sources) Facial laceration ; Translations: [Laceration without foreign body of other part of head, initial encounter] Onset: 0 04-16-2020 Episodic Other circulatory disease (20 sources) Low blood pressure; Translations: [Hypotension, unspecified] [...] fracture with routine healing] Episodic Other fractures (1 source) Flail chest, subsequent encounter for fracture with routine healing; Translations: [Closed fracture of multiple ribs with flail chest with routine healing, subsequent encounter] Onset: 2 Episodic Other fractures (18 sources) Fracture of left rib; Translations: [Fracture of one rib, left side, initial encounter for closed fracture] 10-15-2021 Episodic Other fractures (1 source) Displaced fracture of lateral end of left clavicle, subsequent encounter for fracture with nonunion; Translations: [Displaced fracture of lateral end of left clavicle, subsequent encounter for fracture with nonunion] Onset: 5 Episodic Other gastrointestinal disorders (20 sources) Constipation; [...] conditions due to external causes (20 sources) Systemic inflammatory response syndrome; Translations: [Systemic [...] upper arm, subsequent encounter] 03-17-2021 Episodic Other injuries and conditions due to external causes (2 sources) Sutured skin wound; Translations: [Other injury of unspecified body region, initial encounter] 07-10-2022 Episodic Other liver diseases (20 sources) Increased creatine kinase level; Translations: [Abnormal levels of other serum enzymes] 09-22-2024 Episodic Other lower respiratory disease (20 sources) Cough; Translations: [Cough] 11-22-2022 Episodic Other lower respiratory disease (20 sources) Hypoxia; Translations: [Hypoxemia] 11-22-2022 Episodic Other lower respiratory disease (2 sources) Hypoxemia; Translations: [Hypoxemia] 11-22-2022 Episodic Other lower respiratory disease (1 source) Dyspnea; Translations: [Shortness of breath] 11-22-2022 Episodic Other lower respiratory disease (20 sources) Dyspnea on exertion; Translations: [Other forms of dyspnea] 11-22-2022 Episodic Other lower respiratory disease (1 source) Other forms of dyspnea; Translations: [Other respiratory abnormalities] 11-23-2022 Episodic Other nervous system disorders (20 sources) Neuropathy; 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 Other nervous system disorders (20 sources) Disorder of brain; 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] 05-19-2023 Chronic Other nervous system disorders (3 sources) Other encephalopathy; 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] 05-19-2023 Chronic Other nervous system disorders (20 sources) Unable to walk; Translations: [Difficulty in walking, not elsewhere classified] 09-22-2024 Chronic Other non-traumatic joint disorders (2 sources) Pain in left shoulder; Translations: [Left shoulder pain] 02-09-2025 Episodic Other nutritional; endocrine; and metabolic disorders (20 sources) Hypocalcemia; Translations: [Hypocalcemia] Onset: 0 04-17-2021 Chronic Other nutritional; endocrine; and metabolic disorders (20 sources) Ketosis; 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] 05-19-2023 Chronic Other nutritional; endocrine; and metabolic disorders (3 sources) Other specified metabolic disorders; 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] 05-19-2023 Chronic Other screening for suspected conditions (not mental disorders or infectious disease) (20 sources) Creatinine level - finding; Translations: [Other [...] [Acute respiratory failure with hypoxia] 05-19-2023 Episodic Secondary malignancies (20 sources) Secondary malignant neoplasm of axillary lymph nodes; Translations: [Secondary and unspecified malignant neoplasm of axilla and upper limb lymph nodes] Onset: 3 07-03-2012 Chronic Skull and face fractures (20 sources) Fracture of orbital floor; Translations: [Fracture of orbital floor, right side, initial encounter for closed fracture] 07-02-2022 Episodic Thyroid disorders (20 sources) Hypothyroidism; Translations: [Hypothyroidism, unspecified] Onset: 5 Chronic Unclassified (1 source) Cough, unspecified; Translations: [Cough, unspecified] Onset: 5 Unclassified (1 source) [place] Onset: 5 Urinary tract infections (20 sources) Chronic interstitial cystitis; Translations: [Interstitial cystitis (chronic) with hematuria] Onset: 5 02-10-2015 Chronic Past or Other Problems Problem Classification Problem [...] agranulocytosis] Onset: 07-17-2012 Resolved: 10-03-2012 10-03-2012 Chronic Malaise and fatigue (20 sources) Asthenia; Translations: [Weakness] Onset: 07-13-2024 05-20-2019 Episodic Melanomas of skin (20 sources) History of malignant melanoma of the skin; Translations: [Personal history of malignant melanoma of skin] Onset: 12-10-2008 12-10-2008 Episodic Neoplasms of unspecified nature or uncertain behavior (20 sources) Neoplasm of uncertain behavior of skin; Translations: [Neoplasm of uncertain behavior of skin] Onset: 02-11-2009 02-11-2009 Episodic Other and unspecified [...] encounter] Onset: 10-12-2021 10-12-2021 Episodic Other fractures (1 source) Multiple fractures of ribs, left side, initial encounter for closed fracture; Translations: [Closed fracture of multiple ribs of left side, initial encounter] Onset: 10-17-2021 Episodic Other fractures (1 source) Fracture of neck, unspecified, initial encounter; Translations: [Closed fracture of cervical vertebra, unspecified cervical vertebral level, initial encounter ([facility])] Onset: 10-07-2021 Episodic Other injuries and conditions due to external causes (19 sources) Unspecified multiple injuries, initial encounter; Translations: [Other specified sites, including multiple injury] Onset: 10-07-2021 10-17-2021 Episodic Other liver diseases (1 source) Abnormal levels of other serum enzymes; Translations: [Abnormal levels of other serum enzymes] Onset: 09-25-2024 Episodic Other non-epithelial cancer of skin (20 [...] Translations: [Tobacco use] Onset: 05-24-2015 05-24-2015 Episodic Residual codes; unclassified (1 source) Estrogen receptor positive status [ER+]; Translations: [Malignant neoplasm of left breast in female, estrogen receptor positive, unspecified site of breast (HCC)] Onset: 02-18-2017 Episodic Spondylosis; intervertebral disc disorders; other back problems (1 source) Torticollis; Translations: [Torticollis] Onset: 09-17-2024 Episodic Unclassified (20 sources) BROKEN ARM REPAIR 11-10-2021 Unclassified (2 sources) Creatinine level - finding; Translations: [High creatinine] 05-29-2023 Urinary tract infections (20 sources) Urinary tract infectious disease; Translations: [Urinary tract infection, site not specified] Onset: 09-25-2024 05-20-2019 Episodic Results Test Name Value Interpretation Reference Range Facility Orthopedic Visit Reporton Orthopedic Visit Report [facility] [address] [place] [address] OFFICE VISIT Date of Service: 02/09/25 MR#: [id number] Acct: [id number] Name: AIDEN FIELDS Rep #: [id number] : 1945 Provider: Dr. Cali goyal MD Age/Sex: 79/F Location: [facility] [place] Status: Signed Intake Vital Signs 09/26/24 13:17 02/09/25 13:18 Height 5 ft 8 in 5 ft 8 in Weight: 150 lb BMI 22.8 Intake Visit Reasons: LEFT ARM Chief Complaint: left arm pain Accompanied by: Daughter Is patient in pain?: Yes Pain scale (1-10): 8 Allergies bacitracin (From Neosporin ([id number]-[id number]-ghgrm)) Allergy (Unknown, Verified 02/09/25 13:20) Unknown neomycin (From Neosporin (fkn-vuw-[id number])) Allergy (Unknown, Verified 02/09/25 13:20) Unknown polymyxin B (From Neosporin (toa-yue-[id number])) Allergy (Unknown, Verified 02/09/25 13:20) Unknown Antihistamines - Alkylamine Allergy (Verified 02/09/25 13:20) PT UNSURE OF REACTION diphenhydramine (From Benadryl) Allergy (Verified 02/09/25 13:20) PT UNSURE OF REACTION Medications ???Medication ???Instructions ???Recorded ???Confirmed ???Type dexamethasone sodium phosphate 0.1 1 drp ophthalmic (eye) DAILY 02/09/25 History % eye drops glaucoma amlodipine 5 mg tablet 5 mg PO DAILY 11/22/22 02/09/25 Hi story calcitriol 0.5 mcg capsule 0.5 mcg PO DAILY 11/22/22 02/09/25 History cholecalciferol (vitamin D3) 25 25 mcg PO DAILY SUPPLEMENT 3 02/09/25 History mcg (1,000 unit) capsule escitalopram oxalate 10 mg tablet 10 mg PO DAILY ANXIETY 11/22/22 1 History (Lexapro) magnesium oxide 500 mg PO DAILY SUPPLEMENT 3 02/09/25 History meclizine 25 mg tablet 25 mg PO TID Dizziness 11/22/22 History memantine 5 mg tablet 5 mg PO BID 11/22/22 02/09/25 Hist ory nabumetone 750 mg tablet 750 mg PO BID 11/22/22 02/09/25 Hi story albuterol sulfate 90 mcg/actuation 2 puff inhalation Q6H PRN 02/09/25 Rx aerosol inhaler (Proventil HFA) shortness of breath or wheezing #8.5 grams acetaminophen 500 mg capsule 500 mg PO BID 05/19/23 02/09/25 Hi story famotidine 20 mg tablet (Pepcid) 20 mg PO QHS 05/19/23 02/09/25 His tory pyridoxine (vitamin B6) 100 mg 100 mg PO DAILY 05/19/23 02/09/25 History tablet liothyronine 5 mcg tablet 5 mcg PO DAILY 07/04/24 02/09/25 H istory quetiapine 25 mg tablet 25 mg PO QHS 07/04/24 02/09/25 His tory potassium chloride 8 mEq 8 meq PO QDAY 02/09/25 02/09/25 Hi story capsule,extended release pregabalin 75 mg capsule 75 mg PO TID 02/09/25 02/09/25 His tory valacyclovir 1 gram tablet 1,000 mg PO QDAY 02/09/25 02/09/25 History vitamins A,C,A-ryxm-pciicj 4,296 1 cap PO BID 02/09/25 02/09/25 His tory mcg-226 mg-90 mg capsule (PreserVision AREDS) Have you fallen in the past year?: No [facility] Medical History (Updated 02/09/25 @ 13:55 by Cali Ariza MD) Left shoulder pain Neuropathic pain Chronic anxiety Humerus fracture Closed left humeral fracture Hypothyroidism Anxiety and depression Hypoparathyroidism after procedure Back problem Frequent falls Benzodiazepine dependence Opioid dependence Melanoma Tobacco abuse Hypothyroidism GERD (gastroesophageal reflux disease) Anemia Alcohol abuse Hypertension Multiple rib fractures Subdural hematoma Vitamin D deficiency Skin cancer Rheumatoid arthritis High cholesterol Calcium deficiency Glaucoma Breast cancer Arthritis Surgical History Status post glaucoma surgery H/O mastectomy H/O thyroidectomy Family History Unknown Thyroid disorder Cancer High cholesterol Arthritis Mother Cancer Diabetes Father , Father at the age of 50 from successful suicide attempt. Suicidal intent Other Alcohol abuse Anxiety Depression Heart disease Hypertension Mental disorder Parkinson disease Psychiatric care Social History household members: none housing: house Smoking Status: Former smoker second hand exposure: Yes alcohol intake: former substance use type: does not use HPI LEFT ARM Details: This documentation accurately reflects the service provided and the decisions made by me, Dr. Cali Ariza MD 02/09/25 1317. Part of today???s visit was documented by [ ], acting as scribe. AIDEN FIELDS is a 79 year old F here today for L distal clavicle fracture 3 years. RHD. lateral shoulder pain. hard to lift. has a PT. here with her daughter. in her home. has 24 hours care givers. uses a walker but mostly in a wheelchair and needs ++ assistance to get up an (more content not included)... Normal [facility] LABORATORYOrdered By: James arzate on 01-28-2025 Color (U) Yellow (01/28/25 2:06 PM) Normal Yellow AO Auto Urine SS Glucose (U) [Mass/Vol] Negative Normal Negative AO Auto Urine SS Ketones Ql (U) Negative Normal Negative AO Auto Urine SS UA Appear Clear (01/28/25 2:06 PM) Normal Clear AO Auto Urine SS UA Bili Negative (01/28/25 2:06 PM) Normal Negative AO Auto Urine SS UA Blood Negative (01/28/25 2:06 PM) Normal Negative AO Auto Urine SS UA Leuk Est Negative (01/28/25 2:06 PM) Normal Negative AO Auto Urine SS UA Nitrite Negative (01/28/25 2:06 PM) Normal Negative AO Auto Urine SS UA pH 5.5 (01/28/25 2:06 PM) Normal 5.0 - 8.0 AO Auto Urine SS UA Protein Negative Normal Negative AO Auto Urine SS UA Spec Grav 1.010 *ABN* (01/28/25 2:06 PM) Invalid Interpretation Code 1.015-1.025 AO Auto Urine SS UA Specimen Type Clean Catch (01/28/25 2:06 PM) Normal AO Auto Urine SS UA Urobilinogen 0.2 E.U./dL Normal 0.2-1.0 AO Auto Urine SS No Panel Informationon 01-28 Culture Urine 10,000 - 50,000 cfu/ ml Multiple bacterial morphotypes present. Probable Contamination. Suggest recollection if clinically indicated. [facility] Work Phone: UAon 01-28-2025 Color (U) Yellow Normal Yellow [facility] Comment on above: Performed By: #### U A #### [place] [id number] Glucose (U) [Mass/Vol] Negative Normal Negative [facility] Comment on above: Performed By: #### U A #### [address] [address] Ketones Ql (U) Negative Normal Negative [facility] [place] Comment on above: Performed By: #### U A #### [address] [address] UA Appear Clear Normal Clear [facility] [facility] [place] Comment on above: Performed By: #### U A #### [address] [address] UA Blood Negative Normal Negative [facility] [place] Comment on above: Performed By: #### U A #### [address] [address] UA Leuk Est Negative Normal Negative [facility] [place] Comment on above: Performed By: #### U A #### [address] [address] UA Nitrite Negative Normal Negative [facility] [place] Comment on above: Performed By: #### U A #### [place] [id number] UA pH 5.5 Normal 5.0 - 8.0 [facility] [place] Comment on above: Performed By: #### U A #### [place] [id number] UA Protein Negative Normal Negative [facility] [place] Comment on above: Performed By: #### U A #### [place] [address] UA Spec Grav 1.010 Abnormal 1.015-1.025 [facility] [place] Comment on above: Performed By: #### U A #### [place] [address] UA Specimen Type Clean Catch Normal [facility] [place] Comment on above: Performed By: #### U A #### [place] [address] UA Urobilinogen 0.2 E.U./dL Normal 0.2-1.0 [facility] [place] Comment on above: Performed By: #### U A #### [place] [id number] Urobilinogen (U) [Mass/Vol] Negative Normal Negative [facility] [place] Comment on above: Performed By: #### U A #### [place] [id number] Extremity Upper without Cont raon 01-16-2025 Extremity Upper without Contra [facility] [address] [place] [address] Extremity Upper without Contra MR#: [id number] Acct: [id number] Name: AIDEN FIELDS Rep #: [id number] : 1945 F [id number] From: Howard Macias MD PCP: Dr. Erica Richardson DO Status: REG CLI Study: Extremity Upper without Contra Date of Exam: 0 01/16/25 Exam# [id number] Ordering Dr: Donovan Sigala PA-C PROCEDURE: EXTREMITY UPPER WITHOUT CONTRA 01/16/2025 REASON FOR EXAM: MUSCLE STRAIN, TENDON OF THE ROTATOR TECHNIQUE: Procedure Code: CTEUWO Modality: CT Procedure: EXTREMITY UPPER WITHOUT CONTRA Coronal and Sagittal reconstruction series were provided. One or more dose reduction techniques were used (e.g., Automated exposure control, adjustment of the mA and/or kV according to patient size, use of iterative reconstruction technique. RADIATION DOSE SUMMARY: DLP: 601 mGycm COMPARISON: None FINDINGS: There is hardware present in the left ribs. An old healed fracture of the left scapula is noted. 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 There is a 0.3 cm corticated osteochondral fragment in the superior joint space. 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 There is a moderate joint effusion. There is no visible muscular atrophy. There is no soft tissue mass or adenopathy. Scar is noted at the left lung apex. Atherosclerotic calcifications are noted. CT/Extremity Upper without Contra IMPRESSION: There is hardware present in the left ribs. An old healed fracture of the left scapula is noted. 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 There is a 0.3 cm corticated osteochondral fragment in the superior joint space. 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 Reading Location: [facility] CC: INDRA Sigala; Dr. Erica Richardson DO Gis Manager: Signed Normal [facility] Bacteria Ur Culton Bacteria identified Cx Nom (U) ORGANISM ID: 1 >=100,000 CFU/ml Citrobacter freundii complex ORGANISM ID: 1 (CITROBACTER FREUNDII COMPLEX) ANTIBIOTIC INTERPRETATION BENJAMIN STATUS REFERENCE RANGE Ampicillin R F Cefepime S <=1 F [...] <=32 , Intermediate >32 , Resistant >64 Abnormal [facility] Comment on above: Performed By: #### 6 30-4 #### [facility] CLIA [id number] [address] [place], [place] [address] [place] [address] [place] URINALYSIS, DIPSTICK ONLYon 12-16-2024 Bilirubin Ql (U) Negative Normal Negative Lakisha mckenna [facility] Comment on above: Order Comment: Speci men Type: URINE SPECIMEN Ordering Facility: [facility] Address: [address] [place] [address] Performed By: #### U A #### [facility] CLIA [id number] [address] [place] [address] [place] Clarity (Unsp spec) Cloudy Abnormal Clear Ezequiel [facility] Comment on above: Order Comment: Speci men Type: URINE SPECIMEN Ordering Facility: [facility] Address: [address] [place] [address] Performed By: #### U A #### [facility] CLIA [id number] [address] [address] [place] Color (U) Yellow Normal Yellow [facility] Comment on above: Order Comment: Speci men Type: URINE SPECIMEN Ordering Facility: [facility] Address: [address] [place] [address] Performed By: #### U A #### [facility] CLIA [id number] [address] [place] [id number] [place] Glucose Test strip (U) [Mass/Vol] Negative Normal Negative [facility] Comment on above: Order Comment: Speci men Type: URINE SPECIMEN Ordering Facility: [facility] Address: [address] [place] [address] Performed By: #### U A #### [facility] CLIA [id number] [address] [address] [place] Hemoglobin Ql (U) Trace Abnormal Negative [facility] Comment on above: Order Comment: Speci men Type: URINE SPECIMEN Ordering Facility: [facility] Address: [address] [place] [address] Performed By: #### U A #### [facility] CLIA [id number] [address] [place] [id number] [place] Ketones Ql (U) Negative Normal Negative [facility] Comment on above: Order Comment: Speci men Type: URINE SPECIMEN Ordering Facility: [facility] Address: [address] [place] [address] Performed By: #### U A #### [facility] CLIA [id number] [address] [address] [place] Leukocyte esterase Test strip Ql (U) 3+ Abnormal Negative [facility] Comment on above: Order Comment: Speci men Type: URINE SPECIMEN Ordering Facility: [facility] Address: [address] [place] [address] Performed By: #### U A #### [facility] CLIA [id number] [address] [place] [address] [place] Nitrite Ql (U) Positive Abnormal Negative [facility] Comment on above: Order Comment: Speci men Type: URINE SPECIMEN Ordering Facility: [facility] Address: [address] [place] [address] Performed By: #### U A #### [facility] CLIA [id number] [address] [place] [address] [place] pH (U) 6.0 [pH] Normal 5.0-8.0 [facility] Comment on above: Order Comment: Speci men Type: URINE SPECIMEN Ordering Facility: [facility] Address: [address] [place] [address] Performed By: #### U A #### [facility] CLIA [id number] [address] [place] [address] [place] Protein (U) [Mass/Vol] Negative Normal Negative [facility] Comment on above: Order Comment: Speci men Type: URINE SPECIMEN Ordering Facility: [facility] Address: [address] [place] [address] Performed By: #### U A #### [facility] CLIA [id number] [address] [place] [address] [place] Specific gravity (U) [Rel density] 1.015 Normal 1.005-1.030 [facility] Comment on above: Order Comment: Speci men Type: URINE SPECIMEN Ordering Facility: [facility] Address: [address] [place] [address] Performed By: #### U A #### [facility] CLIA [id number] [address] [place] [id number] [facility] Urobilinogen Ql (U) 0.2 EU/dL Normal 0.2-1.0 EU/dL [facility] Comment on above: Order Comment: Speci men Type: URINE SPECIMEN Ordering Facility: [facility] Address: [address] [place] [address] [place] [id number] Performed By: #### U A #### [facility] CLIA [id number] [address] [place] [id number] [facility] Urine Cultureon 11-27-2024 URC #1 Below infection level. Gram negative river [place] Count <1000 Mixed Gram Positive Organisms Mixed Gram Positive Organisms MIXC Mixed contaminants. Submit a new specimen if indicated. Normal [facility] Comment on above: Performed By: #### M 100.2200 #### [facility] [place], [address] Urine cultureOrdered By: Adelaida Richardson on 11-26-2024 Bacteria identified Cx Nom (U) Negative Abnormal [facility] Bacteria identified Cx Nom (U) Positive Abnormal [facility] Urine cultureOrdered By: Adelaida Richardson on 11-25-2024 Bacteria identified Cx Nom (U) Negative Abnormal [facility] Bacteria identified Cx Nom (U) Positive Abnormal [facility] Bilirubin Test strip Ql (U)O rdered By: Erica Richardson on 11-13-2024 Bilirubin Ql (U) Negative Negative [facility] Ketones Test strip Ql (U)Ord ered By: Erica Richardson on 11-13-2024 Ketones Ql (U) Negative Negative [facility] Microscopic analysis of urin e for red blood cells (RBC)Ordered By: Erica Richardson on 11-13-2024 Microscopic analysis of urine for red blood cells (RBC) 0 SEEN /hpf 0-5 [facility] Mucus LM Ql (Urine sed)Order ed By: Erica Richardson on 11-13-2024 Mucus Ql (Urine sed) 0 SEEN /hpf [facility] Nitrite Test strip Ql (U)Ord ered By: Erica Liboriohattie on 11-13-2024 Nitrite Ql (U) Negative Negative [facility] Protein Test strip Ql (U)Ord ered By: Erica Richardson on 11-13-2024 Protein Ql (U) 100 mg/dl High Negative [facility] Squamous epithelial cells de tection in urine sediment by light microscopyOrdered By: Erica Richardson on 11-13-2024 Epithelial cells.squamous LM Ql (Urine sed) 0 SEEN /hpf 5-10 [facility] Urinalysis, Completeon 11-13 WBC >100 SEEN Normal 0-5 [facility] Comment on above: Order Comment: CLEAN CATCH Performed By: #### L 400.0001 #### [facility] [address] [place], [address] BACTERIA 0 SEEN Normal None Seen [facility] Comment on above: Order Comment: CLEAN CATCH Performed By: #### L 400.0001 #### [facility] [address] [place], [address] EPI,SQUAMOUS 0 SEEN Normal 5-10 [facility] Comment on above: Order Comment: CLEAN CATCH Performed By: #### L 400.0001 #### [facility] [address] [place], [address] Mucus Ql (Urine sed) 0 SEEN Normal [facility] Comment on above: Order Comment: CLEAN CATCH Performed By: #### L 400.0001 #### [facility] [address] [place], [address] RBC 0 SEEN Normal 0-5 [facility] Comment on above: Order Comment: CLEAN CATCH Performed By: #### L 400.0001 #### [facility] [address] [place], [address] Urine clarityOrdered By: Adelaida Richardson on 11-13-2024 Clarity (U) Cloudy Clear [facility] Urine color determinationOrd ered By: Erica Richardson on 11-13-2024 Color (U) Straw Yellow [facility] Urine glucose detectionOrder ed By: Erica Richardson on 11-13-2024 Glucose Ql (U) Normal mg/dl Normal [facility] Urine leukocyte esterase det ection by dipstickOrdered By: Erica Richardson on 11-13-2024 Leukocyte esterase Test strip Ql (U) 500 /ul High Negative [facility] Urine pHOrdered By: Erica kuhn on 11-13-2024 pH (U) 7.0 [pH] 5.0 - 8.0 [facility] Urine sediment bacteria coun t by microscopy (number/high power field)Ordered By: Erica Richardson on 11-13-2024 Bacteria LM.HPF (Urine sed) [#/Area] 0 /[HPF] None Seen [facility] Urine specific gravity measu rementOrdered By: Erica Richardson on 11-13-2024 Specific gravity (U) [Rel density] 1.010 1.002-1.030 [facility] Urine urobilinogen measureme ntOrdered By: Erica Richardson on 11-13-2024 Urobilinogen Ql (U) Normal mg/dl Normal [facility] White blood cell countOrdere d By: Erica Richardson on 11-13-2024 White blood cell count >100 SEEN /hpf 0-5 [facility] Absolute lymphocyte countOrd ered By: Sheyla Mcgee on 10-26-2024 Lymphocytes Auto (Unsp spec) [#/Vol] 1.94 10*3/uL 0.83-4.51 [facility] Absolute neutrophil countOrd ered By: Sheyla Mcgee on 10-26-2024 Neutrophils (Bld) [#/Vol] 4.5 10*3/uL 2.0-7.7 [facility] Anion gap in Serum or Plasma Ordered By: Sheyla Mcgee on 10-26-2024 Anion gap [Moles/Vol] 13 mmol/L 5-15 [facility] Automated lymphocyte count a s percentage of total leukocytesOrdered By: Sheyla Mcgee on 10-26-2024 Lymphocytes/100 WBC Auto (Unsp spec) 25.1 % 19-41 [facility] BUN/creatinine ratioOrdered By: Sheyla Mcgee on 10-26-2024 Urea nitrogen/Creatinine [Mass ratio] 23.7 mg/mg High 10-20 [facility] Basophil percentageOrdered B y: Sheyla Mcgee on 10-26-2024 Basophils/100 WBC (Bld) 1.2 % High 0-1 [facility] Carbon dioxide, total [Moles /volume] in Central venous bloodOrdered By: Sheyla Joopoli on 10-26-2024 CO2 [Moles/Vol] 24.2 mmol/L 21.0-32.0 [facility] Chloride assayOrdered By: Francisco dorian Joojuan mtravis on 10-26-2024 Chloride [Moles/Vol] 102 mmol/L 98-108 [facility] Eosinophil percentageOrdered By: Sheyla Mcgee on 10-26-2024 Eosinophils/100 WBC (Bld) 5.7 % High 0-5 [facility] Erythrocyte distribution wid th ratioOrdered By: Sheyla Mcgee on 10-26-2024 Erythrocyte distribution width (RBC) [Ratio] 13.2 % 11.6-14.6 [facility] Erythrocyte distribution wid th standard deviationOrdered By: aarontraerkateryna Mcgee on 10-26-2024 Erythrocyte distribution width (RBC) [Ratio] 47.5 fl High 35.1-43.9 [facility] Glomerular filtration rate ( GFR) estimation/1.73 sq m using serum, plasma, or whole bOrdered By: Sheyla Mcgee on 10-26-2024 GFR/1.73 sq M.predicted among non-blacks MDRD (S/P/Bld) [Vol rate/Area] 88 mL/min/{1.73_m2} >60 [facility] Comment on above: mL/min/1.73m2 CKD-EP I Creatinine Equation (2020) Hematocrit Auto (Bld) [Volum e fraction]Ordered By: Franciscoaaronestivenkateryna Mcgee on 10-26-2024 Hematocrit (Bld) [Volume fraction] 34.5 % Low 37-47 [facility] Hemoglobin measurementOrdere d By: Franciscoaaroncarl Joojuan mtravis on 10-26-2024 Hemoglobin (Bld) [Mass/Vol] 10.9 g/dL Low 12.0-15.0 [facility] Immature granulocytes/100 WB C Auto (Bld)Ordered By: Sheyla Mcgee on 10-26-2024 Immature granulocytes/100 WBC (Bld) 0.600 % 0.0-0.9 [facility] Comment on above: IG% - Immature Granu locytes (promyelocytes, myelocytes and metamyelocytes) > 1% indicates that a LEFT SHIFT is Present. MCV (mean corpuscular volume ) determinationOrdered By: Sheyla Mcgee on 10-26-2024 MCV (RBC) [Entitic vol] 98.3 fL 81-99 [facility] Mean corpuscular hemoglobin (MCH) determinationOrdered By: Sheyla Mcgee on 10-26-2024 MCH (RBC) [Entitic mass] 31.1 pg 27.0-32.0 [facility] Mean corpuscular hemoglobin concentration (MCHC) determinationOrdered By: Sheyla Mcgee on 10-26-2024 MCHC (RBC) [Mass/Vol] 31.6 g/dL Low 32-36 [facility] Mean platelet volume determi nationOrdered By: Sheyla Mcgee on 10-26-2024 Platelet mean volume (Bld) [Entitic vol] 11.8 fL 6.2-12.0 [facility] Monocyte percentageOrdered B y: Sheyla Mcgee on 10-26-2024 Monocytes/100 WBC (Bld) 9.2 % 0-10 [facility] Neutrophil percentageOrdered By: Sheyla Mcgee on 10-26-2024 Neutrophils/100 WBC (Bld) 58.2 % 47-70 [facility] Nucleated red blood cell per centageOrdered By: Sheyla Mcgee on 10-26-2024 Nucleated RBC/100 WBC (Bld) [Ratio] 0 % 0-5 [facility] Platelet countOrdered By: Francisco Mcgee on 10-26-2024 Platelets (Bld) [#/Vol] 229 10*3/uL 150-450 [facility] Potassium measurement (mass/ volume)Ordered By: Sheyla Mcgee on 10-26-2024 Potassium (Unsp spec) [Mass/Vol] 4.1 mmol/L 3.3-5.1 [facility] RBC Auto (Bld) [#/Vol]Ordere d By: Bashirkateryna Gejuan mtravis on 10-26-2024 RBC (Bld) [#/Vol] 3.51 10*6/uL Low 4.2-5.4 [facility] Serum creatinine measurement (mass/volume)Ordered By: Sheyla Mcgee on 10-26-2024 Creatinine [Mass/Vol] 0.71 mg/dL 0.70-1.20 [facility] Serum glucose measurement (m ass/volume)Ordered By: Sheyla Mcgee on 10-26-2024 Glucose [Mass/Vol] 96 mg/dL 70-99 [facility] Serum or plasma calcium rajni urement (mass/volume)Ordered By: Sheyla Mcgee on 10-26-2024 Calcium [Mass/Vol] 8.3 mg/dL 7.6-11.0 [facility] Serum or plasma urea nitroge n measurement (mass/volume)Ordered By: Sheyla Mcgee on 10-26-2024 Urea nitrogen [Mass/Vol] 17 mg/dL 4-19 [facility] Sodium levelOrdered By: Jonathan carl Arely on 10-26-2024 Sodium [Moles/Vol] 140 mmol/L 133-145 [facility] White blood cell (WBC) count Ordered By: Sheyla Mcgee on 10-26-2024 WBC (Bld) [#/Vol] 7.7 10*3/uL 4.4-11.0 [facility] Absolute lymphocyte countOrd ered By: Sheyla Mcgee on 10-19-2024 Lymphocytes Auto (Unsp spec) [#/Vol] 1.60 10*3/uL 0.83-4.51 [facility] Absolute neutrophil countOrd ered By: Sheyla Mcgee on 10-19-2024 Neutrophils (Bld) [#/Vol] 4.9 10*3/uL 2.0-7.7 [facility] Anion gap in Serum or Plasma Ordered By: Sheyla Mcgee on 10-19-2024 Anion gap [Moles/Vol] 12 mmol/L 5-15 [facility] Automated lymphocyte count a s percentage of total leukocytesOrdered By: Sheyla Mcgee on 10-19-2024 Lymphocytes/100 WBC Auto (Unsp spec) 20.6 % 19-41 [facility] BUN/creatinine ratioOrdered By: Sheyla Mcgee on 10-19-2024 Urea nitrogen/Creatinine [Mass ratio] 18.3 mg/mg 10-20 [facility] Basophil percentageOrdered B y: Sheyla Mcgee on 10-19-2024 Basophils/100 WBC (Bld) 0.8 % 0-1 [facility] Carbon dioxide, total [Moles /volume] in Central venous bloodOrdered By: Sheyla Mcgee on 10-19-2024 CO2 [Moles/Vol] 26.1 mmol/L 21.0-32.0 [facility] Chloride assayOrdered By: Francisco Mcgee on 10-19-2024 Chloride [Moles/Vol] 103 mmol/L 98-108 [facility] Eosinophil percentageOrdered By: dorian Mcgee on 10-19-2024 Eosinophils/100 WBC (Bld) 6.3 % High 0-5 [facility] Erythrocyte distribution wid th ratioOrdered By: Sheyla Mcgee on 10-19-2024 Erythrocyte distribution width (RBC) [Ratio] 13.2 % 11.6-14.6 [facility] Erythrocyte distribution wid th standard deviationOrdered By: Sheyla Mcgee on 10-19-2024 Erythrocyte distribution width (RBC) [Ratio] 47.0 fl High 35.1-43.9 [facility] Glomerular filtration rate ( GFR) estimation/1.73 sq m using serum, plasma, or whole bOrdered By: Sheyla Mcgee on 10-19-2024 GFR/1.73 sq M.predicted among non-blacks MDRD (S/P/Bld) [Vol rate/Area] 90 mL/min/{1.73_m2} >60 [facility] Comment on above: mL/min/1.73m2 CKD-EP I Creatinine Equation (2020) Hematocrit Auto (Bld) [Volum e fraction]Ordered By: Sheyla Mcgee on 10-19-2024 Hematocrit (Bld) [Volume fraction] 35.7 % Low 37-47 [facility] Hemoglobin measurementOrdere d By: Sheyla Mcgee on 10-19-2024 Hemoglobin (Bld) [Mass/Vol] 11.7 g/dL Low 12.0-15.0 [facility] Immature granulocytes/100 WB C Auto (Bld)Ordered By: dorian Mcgee on 10-19-2024 Immature granulocytes/100 WBC (Bld) 0.400 % 0.0-0.9 [facility] Comment on above: IG% - Immature Granu locytes (promyelocytes, myelocytes and metamyelocytes) > 1% indicates that a LEFT SHIFT is Present. MCV (mean corpuscular volume ) determinationOrdered By: Sheyla Mcgee on 10-19-2024 MCV (RBC) [Entitic vol] 96.2 fL 81-99 [facility] Mean corpuscular hemoglobin (MCH) determinationOrdered By: aarontraerkateryna Mcgee on 10-19-2024 MCH (RBC) [Entitic mass] 31.5 pg 27.0-32.0 [facility] Mean corpuscular hemoglobin concentration (MCHC) determinationOrdered By: aarontraerkateryna Mcgee on 10-19-2024 MCHC (RBC) [Mass/Vol] 32.8 g/dL 32-36 [facility] Mean platelet volume determi nationOrdered By: aarontraerkateryna Mcgee on 10-19-2024 Platelet mean volume (Bld) [Entitic vol] 11.4 fL 6.2-12.0 [facility] Monocyte percentageOrdered B y: Sheyla Mcgee on 10-19-2024 Monocytes/100 WBC (Bld) 8.5 % 0-10 [facility] Neutrophil percentageOrdered By: [facility] on 10-19-2024 Neutrophils/100 WBC (Bld) 63.4 % 47-70 [facility] Nucleated red blood cell per centageOrdered By: aarontraerkateryna Mcgee on 10-19-2024 Nucleated RBC/100 WBC (Bld) [Ratio] 0 % 0-5 [facility] Platelet countOrdered By: Francisco dorian Mcgee on 10-19-2024 Platelets (Bld) [#/Vol] 256 10*3/uL 150-450 [facility] Potassium measurement (mass/ volume)Ordered By: Sheyla Mcgee on 10-19-2024 Potassium (Unsp spec) [Mass/Vol] 3.8 mmol/L 3.3-5.1 [facility] RBC Auto (Bld) [#/Vol]Ordere d By: Sheyla Joopoli on 10-19-2024 RBC (Bld) [#/Vol] 3.71 10*6/uL Low 4.2-5.4 [facility] Serum creatinine measurement (mass/volume)Ordered By: Sheyla Joopoli on 10-19-2024 Creatinine [Mass/Vol] 0.68 mg/dL Low 0.70-1.20 [facility] Serum glucose measurement (m ass/volume)Ordered By: Franciscoaaroncarl Joopoli on 10-19-2024 Glucose [Mass/Vol] 97 mg/dL 70-99 [facility] Serum or plasma calcium rajni urement (mass/volume)Ordered By: Sheyla Mcgee on 10-19-2024 Calcium [Mass/Vol] 8.1 mg/dL 7.6-11.0 [facility] Serum or plasma urea nitroge n measurement (mass/volume)Ordered By: Sheyla Joopoli on 10-19-2024 Urea nitrogen [Mass/Vol] 12 mg/dL 4-19 [facility] Sodium levelOrdered By: Jonathan Donnellytravis on 10-19-2024 Sodium [Moles/Vol] 141 mmol/L 133-145 [facility] White blood cell (WBC) count Ordered By: Sheyla Joopoli on 10-19-2024 WBC (Bld) [#/Vol] 7.8 10*3/uL 4.4-11.0 [facility] Absolute lymphocyte countOrd ered By: Sheyla Joopoli on 10-12-2024 Lymphocytes Auto (Unsp spec) [#/Vol] 1.84 10*3/uL 0.83-4.51 [facility] Absolute neutrophil countOrd ered By: Sheyla Mcgee on 10-12-2024 Neutrophils (Bld) [#/Vol] 7.6 10*3/uL 2.0-7.7 [facility] Anion gap in Serum or Plasma Ordered By: Sheyla Mcgee on 10-12-2024 Anion gap [Moles/Vol] 14 mmol/L 5-15 [facility] Automated lymphocyte count a s percentage of total leukocytesOrdered By: Sheyla Mcgee on 10-12-2024 Lymphocytes/100 WBC Auto (Unsp spec) 16.7 % Low 19-41 [facility] BUN/creatinine ratioOrdered By: Sheyla Mcgee on 10-12-2024 Urea nitrogen/Creatinine [Mass ratio] 28.8 mg/mg High 10-20 [facility] [facility] Basophil percentageOrdered B y: Sheyla Mcgee on 10-12-2024 Basophils/100 WBC (Bld) 0.7 % 0-1 [facility] Carbon dioxide, total [Moles /volume] in Central venous bloodOrdered By: Sheyla Mcgee on 10-12-2024 CO2 [Moles/Vol] 23.6 mmol/L 21.0-32.0 [facility] Chloride assayOrdered By: Francisco Mcgee on 10-12-2024 Chloride [Moles/Vol] 104 mmol/L 98-108 [facility] Eosinophil percentageOrdered By: Sheyla Mcgee on 10-12-2024 Eosinophils/100 WBC (Bld) 5.3 % High 0-5 [facility] Erythrocyte distribution wid th ratioOrdered By: Sheyla Mcgee on 10-12-2024 Erythrocyte distribution width (RBC) [Ratio] 13.2 % 11.6-14.6 [facility] Erythrocyte distribution wid th standard deviationOrdered By: Sheyla Mcgee on 10-12-2024 Erythrocyte distribution width (RBC) [Ratio] 47.8 fl High 35.1-43.9 [facility] Glomerular filtration rate ( GFR) estimation/1.73 sq m using serum, plasma, or whole bOrdered By: Sheyla Mcgee on 10-12-2024 GFR/1.73 sq M.predicted among non-blacks MDRD (S/P/Bld) [Vol rate/Area] 78 mL/min/{1.73_m2} >60 [facility] Comment on above: mL/min/1.73m2 CKD-EP I Creatinine Equation (2020) Hematocrit Auto (Bld) [Volum e fraction]Ordered By: Sheyla Mcgee on 10-12-2024 Hematocrit (Bld) [Volume fraction] 38.8 % 37-47 [facility] Hemoglobin measurementOrdere d By: Sheyla Mcgee on 10-12-2024 Hemoglobin (Bld) [Mass/Vol] 12.6 g/dL 12.0-15.0 [facility] Immature granulocytes/100 WB C Auto (Bld)Ordered By: Sheyla Mcgee on 10-12-2024 Immature granulocytes/100 WBC (Bld) 0.500 % 0.0-0.9 [facility] Comment on above: IG% - Immature Granu locytes (promyelocytes, myelocytes and metamyelocytes) > 1% indicates that a LEFT SHIFT is Present. MCV (mean corpuscular volume ) determinationOrdered By: Sheyla Mcgee on 10-12-2024 MCV (RBC) [Entitic vol] 98.5 fL 81-99 [facility] Mean corpuscular hemoglobin (MCH) determinationOrdered By: Jonathantraerkateryna Mcgee on 10-12-2024 MCH (RBC) [Entitic mass] 32.0 pg 27.0-32.0 [facility] Mean corpuscular hemoglobin concentration (MCHC) determinationOrdered By: Sheyla Mcgee on 10-12-2024 MCHC (RBC) [Mass/Vol] 32.5 g/dL 32-36 [facility] Mean platelet volume determi nationOrdered By: Sheyla Mcgee on 10-12-2024 Platelet mean volume (Bld) [Entitic vol] 11.9 fL 6.2-12.0 [facility] Monocyte percentageOrdered B y: Sheyla Mcgee on 10-12-2024 Monocytes/100 WBC (Bld) 8.4 % 0-10 [facility] Neutrophil percentageOrdered By: Sheyla Mcgee on 10-12-2024 Neutrophils/100 WBC (Bld) 68.4 % 47-70 [facility] Nucleated red blood cell per centageOrdered By: Sheyla Mcgee on 10-12-2024 Nucleated RBC/100 WBC (Bld) [Ratio] 0 % 0-5 [facility] Platelet countOrdered By: Francisco Mcgee on 10-12-2024 Platelets (Bld) [#/Vol] 320 10*3/uL 150-450 [facility] Potassium measurement (mass/ volume)Ordered By: Sheyla Mcgee on 10-12-2024 Potassium (Unsp spec) [Mass/Vol] 4.2 mmol/L 3.3-5.1 [facility] Comment on above: Hemolysis present, R esults could be affected. RBC Auto (Bld) [#/Vol]Ordere d By: Sheyla Mcgee on 10-12-2024 RBC (Bld) [#/Vol] 3.94 10*6/uL Low 4.2-5.4 [facility] Serum creatinine measurement (mass/volume)Ordered By: Sheyla Mcgee on 10-12-2024 Creatinine [Mass/Vol] 0.78 mg/dL 0.70-1.20 [facility] Serum glucose measurement (m ass/volume)Ordered By: Sheyla Mcgee on 10-12-2024 Glucose [Mass/Vol] 91 mg/dL 70-99 [facility] Serum or plasma calcium rajni urement (mass/volume)Ordered By: Sheyla Mcgee on 10-12-2024 Calcium [Mass/Vol] 8.0 mg/dL 7.6-11.0 [facility] Serum or plasma urea nitroge n measurement (mass/volume)Ordered By: Sheyla Mcgee on 10-12-2024 Urea nitrogen [Mass/Vol] 23 mg/dL High 4-19 [facility] Sodium levelOrdered By: Jonathan Mcgee on 10-12-2024 Sodium [Moles/Vol] 142 mmol/L 133-145 [facility] White blood cell (WBC) count Ordered By: Bashirkateryna Gejuan mtravis on 10-12-2024 WBC (Bld) [#/Vol] 11.0 10*3/uL 4.4-11.0 [facility] Absolute lymphocyte countOrd ered By: Franciscoaaroncarl Donnellytravis on 10-05-2024 Lymphocytes Auto (Unsp spec) [#/Vol] 2.23 10*3/uL 0.83-4.51 [facility] Absolute neutrophil countOrd ered By: Franciscoaaroncarl Donnellytravis on 10-05-2024 Neutrophils (Bld) [#/Vol] 5.3 10*3/uL 2.0-7.7 [facility] Anion gap in Serum or Plasma Ordered By: Sheyla Mcgee on 10-05-2024 Anion gap [Moles/Vol] 14 mmol/L 5-15 [facility] Automated lymphocyte count a s percentage of total leukocytesOrdered By: Sheyla Mcgee on 10-05-2024 Lymphocytes/100 WBC Auto (Unsp spec) 24.3 % 19-41 [facility] BUN/creatinine ratioOrdered By: aarontraerkateryna Gejuan mtravis on 10-05-2024 Urea nitrogen/Creatinine [Mass ratio] 23.9 mg/mg High 10-20 [facility] Basophil percentageOrdered B y: Franciscoaaronestivenkateryna Gejuan mtravis on 10-05-2024 Basophils/100 WBC (Bld) 1.2 % High 0-1 [facility] Carbon dioxide, total [Moles /volume] in Central venous bloodOrdered By: Sheyla Gejuan mtravis on 10-05-2024 CO2 [Moles/Vol] 25.1 mmol/L 21.0-32.0 [facility] Chloride assayOrdered By: aaroncarl Mcgee on 10-05-2024 Chloride [Moles/Vol] 103 mmol/L 98-108 [facility] Eosinophil percentageOrdered By: Franciscodorian Gejuan mtravis on 10-05-2024 Eosinophils/100 WBC (Bld) 8.3 % High 0-5 [facility] Erythrocyte distribution wid th ratioOrdered By: dorian Gejuan mtravis on 10-05-2024 Erythrocyte distribution width (RBC) [Ratio] 13.2 % 11.6-14.6 [facility] Erythrocyte distribution wid th standard deviationOrdered By: Sheyla Mcgee on 10-05-2024 Erythrocyte distribution width (RBC) [Ratio] 47.4 fl High 35.1-43.9 [facility] Glomerular filtration rate ( GFR) estimation/1.73 sq m using serum, plasma, or whole bOrdered By: Sheyla Mcgee on 10-05-2024 GFR/1.73 sq M.predicted among non-blacks MDRD (S/P/Bld) [Vol rate/Area] 91 mL/min/{1.73_m2} >60 [facility] Comment on above: mL/min/1.73m2 CKD-EP I Creatinine Equation (2020) Hematocrit Auto (Bld) [Volum e fraction]Ordered By: Sheyla Mcgee on 10-05-2024 Hematocrit (Bld) [Volume fraction] 37.8 % 37-47 [facility] Hemoglobin measurementOrdere d By: Sheyla Mcgee on 10-05-2024 Hemoglobin (Bld) [Mass/Vol] 12.4 g/dL 12.0-15.0 [facility] Immature granulocytes/100 WB C Auto (Bld)Ordered By: Sheyla Mcgee on 10-05-2024 Immature granulocytes/100 WBC (Bld) 0.300 % 0.0-0.9 [facility] Comment on above: IG% - Immature Granu locytes (promyelocytes, myelocytes and metamyelocytes) > 1% indicates that a LEFT SHIFT is Present. MCV (mean corpuscular volume ) determinationOrdered By: Sheyla Mcgee on 10-05-2024 MCV (RBC) [Entitic vol] 97.7 fL 81-99 [facility] Mean corpuscular hemoglobin (MCH) determinationOrdered By: Sheyla Mcgee on 10-05-2024 MCH (RBC) [Entitic mass] 32.0 pg 27.0-32.0 [facility] Mean corpuscular hemoglobin concentration (MCHC) determinationOrdered By: Sheyla Mcgee 10-05-2024 MCHC (RBC) [Mass/Vol] 32.8 g/dL 32-36 [facility] Mean platelet volume determi nationOrdered By: Jonathanestivenkateryna Gejuan mtravis on 10-05-2024 Platelet mean volume (Bld) [Entitic vol] 12.8 fL High 6.2-12.0 [facility] Monocyte percentageOrdered B y: Jonathanestivenkateryna Gejuan mtravis on 10-05-2024 Monocytes/100 WBC (Bld) 7.8 % 0-10 [facility] Neutrophil percentageOrdered By: Sheyla Gejuan mtravis on 10-05-2024 Neutrophils/100 WBC (Bld) 58.1 % 47-70 [facility] Nucleated red blood cell per centageOrdered By: Sheyla Gejuan mtravis on 10-05-2024 Nucleated RBC/100 WBC (Bld) [Ratio] 0 % 0-5 [facility] Platelet countOrdered By: Francisco aaroncarl Mcgee on 10-05-2024 Platelets (Bld) [#/Vol] 277 10*3/uL 150-450 [facility] Potassium measurement (mass/ volume)Ordered By: Sheyla Mcgee on 10-05-2024 Potassium (Unsp spec) [Mass/Vol] 3.5 mmol/L 3.3-5.1 [facility] RBC Auto (Bld) [#/Vol]Ordere d By: Sheyla Mcgee on 10-05-2024 RBC (Bld) [#/Vol] 3.87 10*6/uL Low 4.2-5.4 [facility] Serum creatinine measurement (mass/volume)Ordered By: Sheyla Mcgee on 10-05-2024 Creatinine [Mass/Vol] 0.63 mg/dL Low 0.70-1.20 [facility] Serum glucose measurement (m ass/volume)Ordered By: Sheyla Mcgee on 10-05-2024 Glucose [Mass/Vol] 90 mg/dL 70-99 [facility] Serum or plasma calcium rajni urement (mass/volume)Ordered By: Sheyla Mcgee on 10-05-2024 Calcium [Mass/Vol] 8.4 mg/dL 7.6-11.0 [facility] Serum or plasma urea nitroge n measurement (mass/volume)Ordered By: Sheyla Gejuan mtravis on 10-05-2024 Urea nitrogen [Mass/Vol] 15 mg/dL 4-19 [facility] Sodium levelOrdered By: Jonathan Donnellytravis on 10-05-2024 Sodium [Moles/Vol] 143 mmol/L 133-145 [facility] White blood cell (WBC) count Ordered By: Franciscoaaroncarl Joojuan mtravis on 10-05-2024 WBC (Bld) [#/Vol] 9.2 10*3/uL 4.4-11.0 [facility] Absolute lymphocyte countOrd ered By: Franciscoaaroncarl Joojuan mtravis on 09-28-2024 Lymphocytes Auto (Unsp spec) [#/Vol] 2.11 10*3/uL 0.83-4.51 [facility] Absolute neutrophil countOrd ered By: Franciscodorian Gejuan mtravis on 09-28-2024 Neutrophils (Bld) [#/Vol] 7.3 10*3/uL 2.0-7.7 [facility] Anion gap in Serum or Plasma Ordered By: Franciscodorian Gejuan mtravis on 09-28-2024 Anion gap [Moles/Vol] 13 mmol/L 5-15 [facility] Automated lymphocyte count a s percentage of total leukocytesOrdered By: Franciscoodrian Gejuan mtravis on 09-28-2024 Lymphocytes/100 WBC Auto (Unsp spec) 19.1 % 19-41 [facility] BUN/creatinine ratioOrdered By: Franciscodorian Gejuan mtravis on 09-28-2024 Urea nitrogen/Creatinine [Mass ratio] 16.3 mg/mg 10-20 [facility] Basophil percentageOrdered B y: Bashirkateryna Gejuan mtravis on 09-28-2024 Basophils/100 WBC (Bld) 0.7 % 0-1 [facility] Bilirubin, totalOrdered By: Franciscodorian Gejuan mtravis on 09-28-2024 Bilirubin [Mass/Vol] 0.44 mg/dL 0.00-1.30 [facility] Carbon dioxide, total [Moles /volume] in Central venous bloodOrdered By: Franciscodorian Gejuan mtravis on 09-28-2024 CO2 [Moles/Vol] 25.5 mmol/L 21.0-32.0 [facility] Chloride assayOrdered By: Francisco Mcgee on 09-28-2024 Chloride [Moles/Vol] 104 mmol/L 98-108 [facility] Eosinophil percentageOrdered By: Sheyla Mcgee on 09-28-2024 Eosinophils/100 WBC (Bld) 5.4 % High 0-5 [facility] Erythrocyte distribution wid th ratioOrdered By: Sheyla Mcgee on 09-28-2024 Erythrocyte distribution width (RBC) [Ratio] 13.2 % 11.6-14.6 [facility] Erythrocyte distribution wid th standard deviationOrdered By: Sheyla Mcgee on 09-28-2024 Erythrocyte distribution width (RBC) [Ratio] 47.7 fl High 35.1-43.9 [facility] Glomerular filtration rate ( GFR) estimation/1.73 sq m using serum, plasma, or whole bOrdered By: Sheyla Mcgee on 09-28-2024 GFR/1.73 sq M.predicted among non-blacks MDRD (S/P/Bld) [Vol rate/Area] 91 mL/min/{1.73_m2} >60 [facility] Comment on above: mL/min/1.73m2 CKD-EP I Creatinine Equation (2020) Hematocrit Auto (Bld) [Volum e fraction]Ordered By: Sheyla Mcgee on 09-28-2024 Hematocrit (Bld) [Volume fraction] 39.9 % 37-47 [facility] Hemoglobin measurementOrdere d By: Sheyla Mcgee on 09-28-2024 Hemoglobin (Bld) [Mass/Vol] 13.3 g/dL 12.0-15.0 [facility] Immature granulocytes/100 WB C Auto (Bld)Ordered By: Sheyla Mcgee on 09-28-2024 Immature granulocytes/100 WBC (Bld) 0.400 % 0.0-0.9 [facility] Comment on above: IG% - Immature Granu locytes (promyelocytes, myelocytes and metamyelocytes) > 1% indicates that a LEFT SHIFT is Present. Laboratory - Chemistry and C hemistry - challengeOrdered By: Sheyla Mcgee on 09-28-2024 AST [Catalytic activity/Vol] 28 U/L <32 [facility] MCV (mean corpuscular volume ) determinationOrdered By: Sheyla Mcgee on 09-28-2024 MCV (RBC) [Entitic vol] 97.3 fL 81-99 [facility] Magnesium measurement (mass/ volume)Ordered By: Sheyla Mcgee on 09-28-2024 Magnesium (Unsp spec) [Mass/Vol] 2.2 mg/dL 1.5-2.2 [facility] Mean corpuscular hemoglobin (MCH) determinationOrdered By: Sheyla Mcgee on 09-28-2024 MCH (RBC) [Entitic mass] 32.4 pg High 27.0-32.0 [facility] Mean corpuscular hemoglobin concentration (MCHC) determinationOrdered By: Sheyla Mcgee on 09-28-2024 MCHC (RBC) [Mass/Vol] 33.3 g/dL 32-36 [facility] Mean platelet volume determi nationOrdered By: Sheyla Mcgee on 09-28-2024 Platelet mean volume (Bld) [Entitic vol] 12.1 fL High 6.2-12.0 [facility] Monocyte percentageOrdered B y: Sheyla Mcgee on 09-28-2024 Monocytes/100 WBC (Bld) 8.3 % 0-10 [facility] Neutrophil percentageOrdered By: Sheyla Mcgee on 09-28-2024 Neutrophils/100 WBC (Bld) 66.1 % 47-70 [facility] No Panel InformationOrdered By: Sheyla Mcgee on 09-28-2024 28 U/L <32 [facility] Nucleated red blood cell per centageOrdered By: Sheyla Mcgee on 09-28-2024 Nucleated RBC/100 WBC (Bld) [Ratio] 0 % 0-5 [facility] Platelet countOrdered By: Francisco Mcgee on 09-28-2024 Platelets (Bld) [#/Vol] 230 10*3/uL 150-450 [facility] Potassium measurement (mass/ volume)Ordered By: Sheyla Mcgee on 09-28-2024 Potassium (Unsp spec) [Mass/Vol] 3.4 mmol/L 3.3-5.1 [facility] RBC Auto (Bld) [#/Vol]Ordere d By: Sheyla Mcgee on 09-28-2024 RBC (Bld) [#/Vol] 4.10 10*6/uL Low 4.2-5.4 [facility] Serum creatinine measurement (mass/volume)Ordered By: Sheyla Mcgee on 09-28-2024 Creatinine [Mass/Vol] 0.63 mg/dL Low 0.70-1.20 [facility] Serum globulin measurementOr dered By: Sheyla Mcgee on 09-28-2024 Globulin (S) [Mass/Vol] 2.9 g/dL 2.2-4.2 [facility] Serum glucose measurement (m ass/volume)Ordered By: Sheyla cMgee on 09-28-2024 Glucose [Mass/Vol] 85 mg/dL 70-99 [facility] Serum or plasma alanine kaur otransferase (ALT) measurementOrdered By: Sheyla Mcgee on 09-28-2024 ALT [Catalytic activity/Vol] 23 U/L <35 [facility] Serum or plasma albumin rajni urement (mass/volume)Ordered By: Sheyla Mcgee on 09-28-2024 Albumin [Mass/Vol] 3.8 g/dL 3.4-4.8 [facility] Serum or plasma albumin/glob ulin mass ratioOrdered By: Sheyla Mcgee on 09-28-2024 Albumin/Globulin [Mass ratio] 1.3 {ratio} 0.9-2.4 [facility] Serum or plasma alkaline dedra sphatase measurementOrdered By: Sheyla Mcgee on 09-28-2024 ALP [Catalytic activity/Vol] 86 U/L 35-104 [facility] Serum or plasma calcium rajni urement (mass/volume)Ordered By: Sheyla Mcgee on 09-28-2024 Calcium [Mass/Vol] 8.7 mg/dL 7.6-11.0 [facility] Serum or plasma triiodothyro nine (T3) measurement (mass/volume)Ordered By: Sheyla Joojuan mtravis on 09-28-2024 T3 [Mass/Vol] 0.82 ng/mL 0.80-2.00 [facility] Serum or plasma urea nitroge n measurement (mass/volume)Ordered By: Sheyla Joojuan mtravis on 09-28-2024 Urea nitrogen [Mass/Vol] 10 mg/dL 4-19 [facility] Sodium levelOrdered By: Jonathan Mcgee on 09-28-2024 Sodium [Moles/Vol] 143 mmol/L 133-145 [facility] TSH DL <= 0.005 mIU/L QnOrde red By: Sheyla Joopoli on 09-28-2024 TSH Qn 0.522 uIU/mL 0.300-4.200 [facility] Total proteinOrdered By: Jose Mcgee on 09-28-2024 Protein [Mass/Vol] 6.8 g/dL 5.9-8.4 [facility] White blood cell (WBC) count Ordered By: Sheyla Joojuan mtravis on 09-28-2024 WBC (Bld) [#/Vol] 11.0 10*3/uL 4.4-11.0 [facility] Clavicleon 09-26-2024 Clavicle [facility] Imaging Services [address] [place] [address] Clavicle MR#: [id number] Acct: [id number] Name: AIDEN FIELDS Rep #: [id number] : 1945 F 78 From: Sim Gordon DO PCP: Dr. Sheyla Mcgee MD Status: [facility] ER Study: Clavicle Date of Exam: 09/26/24 Exam# [id number] Ordering Dr: Franky Olivas DO PROCEDURE: CLAVICLE 09/26/2024 REASON FOR EXAM: FALL Initial encounter TECHNIQUE: 2 view(s) of the left clavicle COMPARISON: No prior left clavicle radiographs. FINDINGS: LEFT CLAVICLE: Fracture in the distal 3rd of the clavicle with the parent 8 mm inferior displacement of the distal fracture fragment, been a apposition RAD/Clavicle IMPRESSION: Distal left clavicle fracture Reading Location: [facility] CC: Dr. Sheyla Mcgee MD; Dr. Franky Olivas DO Gis Manager: Signed Normal [facility] Emergency Department Summary on 09-26-2024 Emergency Department Summary [facility] Medical Records Department [address] [place] [address] Emergency Department Summary 09/26/24 MR#: [id number] Acct: [id number] Name: AIDEN FIELDS Rep #: [id number] : 1945 78 From: Franky Olivas DO [...] weakness they deny any blood thinning medications. [facility] Medical History Anxiety and depression Hypoparathyroidism after [...] Neosporin Allergy Unknown Unknown Verified 09/22/24 20:06 ([id number])) neomycin (From Neosporin Allergy Unknown Unknown Verified 09/22/24 20:06 ([id number])) polymyxin B (From Neosporin Allergy Unknown Unknown Verified 09/22/24 20:06 ([id number])) Antihistamines - Alkylamine Allergy PT UNSURE Verified [...] Respiratory: D (more content not included)... Normal [facility] Shoulder min 2 Viewson 09-26 Shoulder min 2 Views [facility] Imaging Services [address] [place] [address] Shoulder min 2 Views MR#: [id number] Acct: [id number] Name: AIDEN FIELDS Rep #: [id number] : 1945 F 78 From: Sim Gordon DO PCP: Dr. Sheyla Mcgee MD Status: REG ER Study: Shoulder min 2 Views Date of Exam: 09/26/24 Exam# [id number] Ordering Dr: Franky Olivas DO PROCEDURE: SHOULDER [...] distal 3rd of the clavicle. Reading Location: [facility] CC: Dr. Sheyla Mcgee MD; Dr. Franky Olivas DO Gis Manager: Signed Normal [facility] Urine Cultureon 09-26-2024 [facility] Urine Culture Citrobacter species Savoy Count >100,000 Citrobacter species: REACTION Cefepime Islt [...] S Tobramycin Islt BENJAMIN <=1 S Normal [facility] Comment on above: Performed By: #### L 501.3620, L500.4050, L100.0100 #### [facility] Laboratory [address] [place], [place], [id number] Absolute lymphocyte countOrd ered By: Aggie Bolton on 09-23-2024 Lymphocytes Auto (Unsp spec) [#/Vol] 1.66 10*3/uL 0.83-4.51 [facility] Absolute neutrophil countOrd ered By: Aggie Bolton on 09-23-2024 Neutrophils (Bld) [#/Vol] 7.2 10*3/uL 2.0-7.7 [facility] Anion gap in Serum or Plasma Ordered By: Aggie Bolton on 09-23-2024 Anion gap [Moles/Vol] 10 mmol/L 5-15 [facility] Automated blood erythrocyte countOrdered By: Aggie Che on 09-23-2024 RBC (Bld) [#/Vol] 3.68 10*6/uL Low 4.2-5.4 [facility] Comment on above: Performed By: #### L 501.3620, L500.4050, L100.0100 #### [facility] [address] [place], [place], [id number] Automated blood hematocrit ( percentage)Ordered By: Aggie Bolton on 09-23-2024 Hematocrit (Bld) [Volume fraction] 35.9 % Low 37-47 [facility] Comment on above: Performed By: #### L 501.3620, L500.4050, L100.0100 #### [facility] [address] [place], [address] Automated lymphocyte count a s percentage of total leukocytesOrdered By: Aggie White on 09-23-2024 Lymphocytes/100 WBC Auto (Unsp spec) 16.2 % Low 19-41 [facility] BUN/creatinine ratioOrdered By: Aggie White on 09-23-2024 Urea nitrogen/Creatinine [Mass ratio] 18.3 mg/mg 10-20 [facility] Basophil percentageOrdered B y: White on 09-23-2024 Basophils/100 WBC (Bld) 0.8 % Normal 0-1 [facility] Comment on above: Performed By: #### L 501.3620, L500.4050, L100.0100 #### [facility] [address] [place], [address] Bilirubin, totalOrdered By: Aggie White on 09-23-2024 Bilirubin [Mass/Vol] 0.17 mg/dL Normal 0.00-1.30 [facility] Comment on above: Performed By: #### L 501.3620, L500.4050, L100.0100 #### [facility] [address] [place], [address] CBC W/Diff, Automatedon 06-0 Absolute Lymph 1.66 X10 3/uL Normal 0.83-4.51 [facility] Comment on above: Performed By: #### L 501.3620, L500.4050, L100.0100 #### [facility] [address] [place], [address] Absolute Neut 7.2 X10 3/uL Normal 2.0-7.7 [facility] Comment on above: Performed By: #### L 501.3620, L500.4050, L100.0100 #### [facility] [address] [place], [address] IG% 0.400 Normal 0.0-0.9 [facility] Comment on above: Result Comment: IG% - Immature Granulocytes (promyelocytes, myelocytes and metamyelocytes) > 1% indicates that a LEFT SHIFT is Present. Performed By: #### L 501.3620, L500.4050, L100.0100 #### [facility] [address] [place], [address] Lymphocytes/100 WBC (Bld) 16.2 % Low 19-41 [facility] Comment on above: Performed By: #### L 501.3620, L500.4050, L100.0100 #### [facility] [address] [place], [address] Nucleated RBC (Bld) [#/Vol] 0 10*3/uL Normal 0-5 [facility] Comment on above: Performed By: #### L 501.3620, L500.4050, L100.0100 #### [facility] [address] [place], [address] RDW SD 47.4 fl High 35.1-43.9 [facility] Comment on above: Performed By: #### L 501.3620, L500.4050, L100.0100 #### [facility] [address] [place], [address] CPK Total, Creatine Kinaseon 09-23-2024 CPK TOTAL 271 U/L High 24-195 [facility] Comment on above: Performed By: #### L 501.3620, L500.4050, L100.0100 #### [facility] [address] [place], [address] Carbon dioxide, total [Moles /volume] in Central venous bloodOrdered By: Aggie Bolton on 09-23-2024 CO2 [Moles/Vol] 24.4 mmol/L Normal 21.0-32.0 [facility] Comment on above: Performed By: #### L 501.3620, L500.4050, L100.0100 #### [facility] [address] [place], [address] Chloride assayOrdered By: Lesly Bolton on 09-23-2024 Chloride [Moles/Vol] 105 mmol/L Normal 98-108 [facility] Comment on above: Performed By: #### L 501.3620, L500.4050, L100.0100 #### [facility] [address] [place], [address] Comprehensive Metabolic Prof ilon 09-23-2024 ALK PHOS 80 U/L Normal 35-104 [facility] Comment on above: Performed By: #### L 501.3620, L500.4050, L100.0100 #### [facility] [address] [place], [address] BUN/CRE 18.3 RATIO Normal 10-20 [facility] Comment on above: Performed By: #### L 501.3620, L500.4050, L100.0100 #### [facility] [address] [place], [address] ECRCL 59.41 ml/min Normal 50-250 [facility] Comment on above: Performed By: #### L 501.3620, L500.4050, L100.0100 #### [facility] [address] [place], [address] GAP 10 Normal 5-15 [facility] Comment on above: Performed By: #### L 501.3620, L500.4050, L100.0100 #### [facility] [address] [place], [address] Potassium [Moles/Vol] 4.1 mmol/L Normal 3.3-5.1 [facility] Comment on above: Performed By: #### L 501.3620, L500.4050, L100.0100 #### [facility] [address] [place], [address] T PROT 6.2 g/dL Normal 5.9-8.4 [facility] Comment on above: Performed By: #### L 501.3620, L500.4050, L100.0100 #### [facility] [address] [place], [address] Comprehensive Metabolic Prof ilOrdered By: Che on 09-23-2024 AST [Catalytic activity/Vol] 24 U/L Normal <=31 [facility] Comment on above: Performed By: #### L 501.3620, L500.4050, L100.0100 #### [facility] [address] [place], [address] Eosinophil percentageOrdered By: Che on 09-23-2024 Eosinophils/100 WBC (Bld) 2.4 % Normal 0-5 [facility] Comment on above: Performed By: #### L 501.3620, L500.4050, L100.0100 #### [facility] [address] [place], [address] Erythrocyte distribution wid th ratioOrdered By: Aggie Che on 09-23-2024 Erythrocyte distribution width (RBC) [Ratio] 13.2 % Normal 11.6-14.6 [facility] Comment on above: Performed By: #### L 501.3620, L500.4050, L100.0100 #### [facility] [address] [place], [address] Erythrocyte distribution wid th standard deviationOrdered By: Aggie Che on 09-23-2024 Erythrocyte distribution width (RBC) [Ratio] 47.4 fl High 35.1-43.9 [facility] Glomerular filtration rate ( GFR) estimation/1.73 sq m using serum, plasma, or whole bOrdered By: Aggie Bolton on 09-23-2024 GFR/1.73 sq M.predicted among non-blacks MDRD (S/P/Bld) [Vol rate/Area] 87 mL/min/{1.73_m2} Normal >60 [facility] Comment on above: mL/min/1.73m2 CKD-EP I Creatinine Equation (2020) Result Comment: mL/m in/1.73m2 CKD-EPI Creatinine Equation (2020) Performed By: #### L 501.3620, L500.4050, L100.0100 #### [facility] [address] [place], [address] Hemoglobin measurementOrdere d By: Aggie Bolton on 09-23-2024 Hemoglobin (Bld) [Mass/Vol] 12.0 g/dL Normal 12.0-15.0 [facility] Comment on above: Performed By: #### L 501.3620, L500.4050, L100.0100 #### [facility] [address] [place], [address] Immature granulocytes/100 WB C Auto (Bld)Ordered By: Aggie Bolton on 09-23-2024 Immature granulocytes/100 WBC (Bld) 0.400 % 0.0-0.9 [facility] Comment on above: IG% - Immature Granu locytes (promyelocytes, myelocytes and metamyelocytes) > 1% indicates that a LEFT SHIFT is Present. MCV (mean corpuscular volume ) determinationOrdered By: Aggie Bolton on 09-23-2024 MCV (RBC) [Entitic vol] 97.6 fL Normal 81-99 [facility] Comment on above: Performed By: #### L 501.3620, L500.4050, L100.0100 #### [facility] [address] [place], [address] Mean corpuscular hemoglobin (MCH) determinationOrdered By: Aggie Bolton on 09-23-2024 MCH (RBC) [Entitic mass] 32.6 pg High 27.0-32.0 [facility] Comment on above: Performed By: #### L 501.3620, L500.4050, L100.0100 #### [facility] [address] [place], [address] Mean corpuscular hemoglobin concentration (MCHC) determinationOrdered By: Aggie White on 09-23-2024 MCHC (RBC) [Mass/Vol] 33.4 g/dL Normal 32-36 [facility] Comment on above: Performed By: #### L 501.3620, L500.4050, L100.0100 #### [facility] [address] [place], [address] Mean platelet volume determi nationOrdered By: White on 09-23-2024 Platelet mean volume (Bld) [Entitic vol] 11.7 fL Normal 6.2-12.0 [facility] Comment on above: Performed By: #### L 501.3620, L500.4050, L100.0100 #### [facility] [address] [place], [address] Monocyte percentageOrdered B y: White on 09-23-2024 Monocytes/100 WBC (Bld) 9.6 % Normal 0-10 [facility] Comment on above: Performed By: #### L 501.3620, L500.4050, L100.0100 #### [facility] [address] [place], [address] Neutrophil percentageOrdered By: White on 09-23-2024 Neutrophils/100 WBC (Bld) 70.6 % High 47-70 [facility] Comment on above: Performed By: #### L 501.3620, L500.4050, L100.0100 #### [facility] [address] [place], [address] No Panel InformationOrdered By: White on 09-23-2024 24 U/L <32 [facility] Nucleated red blood cell per centageOrdered By: White on 09-23-2024 Nucleated RBC/100 WBC (Bld) [Ratio] 0 % 0-5 [facility] Platelet countOrdered By: Lesly carbajal Che on 09-23-2024 Platelets (Bld) [#/Vol] 241 10*3/uL Normal 150-450 [facility] Comment on above: Performed By: #### L 501.3620, L500.4050, L100.0100 #### [facility] [address] [place], [address] Potassium measurement (mass/ volume)Ordered By: Aggie Bolton on 09-23-2024 Potassium (Unsp spec) [Mass/Vol] 4.1 mmol/L 3.3-5.1 [facility] Serum creatinine measurement (mass/volume)Ordered By: Aggie Bolton on 09-23-2024 Creatinine [Mass/Vol] 0.71 mg/dL Normal 0.70-1.20 [facility] Comment on above: Performed By: #### L 501.3620, L500.4050, L100.0100 #### [facility] [address] [place], [address] Serum globulin measurementOr dered By: Aggie Bolton on 09-23-2024 Globulin (S) [Mass/Vol] 2.8 g/dL Normal 2.2-4.2 [facility] Comment on above: Performed By: #### L 501.3620, L500.4050, L100.0100 #### [facility] [address] [place], [address] Serum glucose measurement (m ass/volume)Ordered By: Aggie Bolton on 09-23-2024 Glucose [Mass/Vol] 162 mg/dL High 70-99 [facility] Comment on above: Performed By: #### L 501.3620, L500.4050, L100.0100 #### [facility] [address] [place], [address] Serum or plasma alanine kaur otransferase (ALT) measurementOrdered By: Aggie Bolton on 09-23-2024 ALT [Catalytic activity/Vol] 13 U/L Normal <=34 [facility] Comment on above: Performed By: #### L 501.3620, L500.4050, L100.0100 #### [facility] [address] [place], [address] Serum or plasma albumin rajni urement (mass/volume)Ordered By: Aggie Che on 09-23-2024 Albumin [Mass/Vol] 3.4 g/dL Normal 3.4-4.8 [facility] Comment on above: Performed By: #### L 501.3620, L500.4050, L100.0100 #### [facility] [address] [place], [address] Serum or plasma albumin/glob ulin mass ratioOrdered By: Aggie Che on 09-23-2024 Albumin/Globulin [Mass ratio] 1.2 {ratio} Normal 0.9-2.4 [facility] Comment on above: Performed By: #### L 501.3620, L500.4050, L100.0100 #### [facility] [address] [place], [address] Serum or plasma alkaline dedra sphatase measurementOrdered By: Aggie Che on 09-23-2024 ALP [Catalytic activity/Vol] 80 U/L 35-104 [facility] Serum or plasma calcium rajni urement (mass/volume)Ordered By: Aggie Che 09-23-2024 Calcium [Mass/Vol] 8.0 mg/dL Normal 7.6-11.0 [facility] Comment on above: Performed By: #### L 501.3620, L500.4050, L100.0100 #### [facility] [address] [place], [address] Serum or plasma creatine kin ase activityOrdered By: Aggie Che on 09-23-2024 CK [Catalytic activity/Vol] 271 U/L High 24-195 [facility] Serum or plasma urea nitroge n measurement (mass/volume)Ordered By: Aggie Bolton on 09-23-2024 Urea nitrogen [Mass/Vol] 13 mg/dL Normal 4-19 [facility] Comment on above: Performed By: #### L 501.3620, L500.4050, L100.0100 #### [facility] [address] [place], [address] Sodium levelOrdered By: Varun Bolton on 09-23-2024 Sodium [Moles/Vol] 140 mmol/L Normal 133-145 [facility] Comment on above: Performed By: #### L 501.3620, L500.4050, L100.0100 #### [facility] [address] [place], [address] Total proteinOrdered By: Martita Bolton on 09-23-2024 Protein [Mass/Vol] 6.2 g/dL 5.9-8.4 [facility] White blood cell (WBC) count Ordered By: Aggie Bolton on 09-23-2024 WBC (Bld) [#/Vol] 10.3 10*3/uL Normal 4.4-11.0 [facility] Comment on above: Performed By: #### L 501.3620, L500.4050, L100.0100 #### [facility] [address] [place], [address] 12 Lead EKGon 09-22-2024 12 Lead EKG [facility]ovascular Services [address] [place] [address] 12 Lead EKG 09/22/242044 MR#: [id number] Acct: [id number] Name: AIDEN FIELDS Rep #: [id number] : 1945 78 From: Geovanna Gray MD Attending Dr: Dr. Froy Velázquez, DO Status: DIS IN Ordering Dr: Alexis Quijano MD Date: 09/22/24 Location: [facility] Sex: F C Admitted: [...] Normal ECG Confirmed by ISAIAH CRAMER, HILL ([id number]), index editor ONESIMO GRACE ([id number]) on 09/28/2024 7:09:28 AM Referred By: Confirmed By: HILL GRAY MD 09/28/24 0709 Date Geovanna Gray MD CC: Dr. Alexis Quijano MD; Dr. Froy Velázquez DO; Dr. Erica Richardson DO Signed Normal [facility] Absolute lymphocyte countOrd ered By: Alexis Quijano on 09-22-2024 Lymphocytes Auto (Unsp spec) [#/Vol] 2.17 10*3/uL 0.83-4.51 [facility] Absolute neutrophil countOrd ered By: Alexis Quijano on 09-22-2024 Neutrophils (Bld) [#/Vol] 8.0 10*3/uL High 2.0-7.7 [facility] Anion gap in Serum or Plasma Ordered By: Alexis Quijano on 09-22-2024 Anion gap [Moles/Vol] 11 mmol/L 5-15 [facility] Automated lymphocyte count a s percentage of total leukocytesOrdered By: Alexis Quijano on 09-22-2024 Lymphocytes/100 WBC Auto (Unsp spec) 18.8 % Low 19-41 [facility] BUN/creatinine ratioOrdered By: Alexis Quijano on 09-22-2024 Urea nitrogen/Creatinine [Mass ratio] 15.0 mg/mg 10-20 [facility] Basophil percentageOrdered B y: Alexis Quijano on 09-22-2024 Basophils/100 WBC (Bld) 0.9 % 0-1 [facility] Bilirubin Test strip Ql (U)O rdered By: Alexis Quijano on 09-22-2024 Bilirubin Ql (U) Negative Negative [facility] Bilirubin, totalOrdered By: Alexis Quijano on 09-22-2024 Bilirubin [Mass/Vol] 0.31 mg/dL 0.00-1.30 [facility] Brain/Head without Contrasto n 09-22-2024 Brain/Head without Contrast [facility] Imaging Services [address] [place] [address] Brain/Head without Contrast MR#: [id number] Acct: [id number] Name: AIDEN FIELDS Rep #: [id number] : 1945 F 78 From: Warren Mullen MD PCP: Dr. Erica Richardson DO Status: REG ER Study: Brain/Head without Contrast Date of Exam: 07/14 Exam# [id number] Ordering Dr: Alexis Quijano MD PROCEDURE: BRAIN/HEAD [...] mGy DLP: 897.35 mGycm COMPARISON: 08/20/2023. FINDINGS: Sobjipvf-sn-gteawx global parenchymal atrophy. Periventricular white matter hypodensity likely representing chronic microvascular ischemia. No evidence of acute hemorrhage or infarction. No extra-axial blood or fluid collections. The paranasal sinuses are clear. The mastoid air cells are well aerated. The calvarial vault and skull base are intact. CT/Brain/Head without Contrast IMPRESSION: No acute intracranial abnormality. Reading Location: [id number] CC: Dr. Alexis Quijano MD; Dr. Erica Richardson DO Gis Manager: Signed Normal [facility] CBC W/Diff, Automatedon Absolute Lymph 2.17 X10 3/uL Normal 0.83-4.51 [facility] Comment on above: Performed By: #### M 100.2200 #### [facility] [address] [facility], [address] Absolute Neut 8.0 X10 3/uL High 2.0-7.7 [facility] Comment on above: Performed By: #### M 100.2200 #### [facility] [address] [place], [address] Basophils/100 WBC (Bld) 0.9 % Normal 0-1 [facility] Comment on above: Performed By: #### M 100.2200 #### [facility] [address] [place], [address] Eosinophils/100 WBC (Bld) 2.9 % Normal 0-5 [facility] Comment on above: Performed By: #### M 100.2200 #### [facility] [address] [place], [address] Erythrocyte distribution width (RBC) [Ratio] 13.1 % Normal 11.6-14.6 [facility] Comment on above: Performed By: #### M 100.2200 #### [facility] [address] [place], [address] Hematocrit (Bld) [Volume fraction] 39.5 % Normal 37-47 [facility] Comment on above: Performed By: #### M 100.2200 #### [facility] [address] [place], [address] Hemoglobin (Bld) [Mass/Vol] 13.2 g/dL Normal 12.0-15.0 [facility] Comment on above: Performed By: #### M 100.2200 #### [facility] [address] [place], [address] IG% 0.400 Normal 0.0-0.9 [facility] Comment on above: Result Comment: IG% - Immature Granulocytes (promyelocytes, myelocytes and metamyelocytes) > 1% indicates that a LEFT SHIFT is Present. Performed By: #### M 100.2200 #### [facility] [address] [place], [address] Lymphocytes/100 WBC (Bld) 18.8 % Low 19-41 [facility] Comment on above: Performed By: #### M 100.2200 #### [facility] [address] [place], [address] MCH (RBC) [Entitic mass] 32.7 pg High 27.0-32.0 [facility] Comment on above: Performed By: #### M 100.2200 #### [facility] [address] [place], [address] MCHC (RBC) [Mass/Vol] 33.4 g/dL Normal 32-36 [facility] Comment on above: Performed By: #### M 100.2200 #### [facility] [address] [place], [address] MCV (RBC) [Entitic vol] 97.8 fL Normal 81-99 [facility] Comment on above: Performed By: #### M 100.2200 #### [facility] [address] [place], [address] Monocytes/100 WBC (Bld) 7.5 % Normal 0-10 [facility] Comment on above: Performed By: #### M 100.2200 #### [facility] [address] [place], [address] Neutrophils/100 WBC (Bld) 69.5 % Normal 47-70 [facility] Comment on above: Performed By: #### M 100.2200 #### [facility] [address] [place], [address] Nucleated RBC (Bld) [#/Vol] 0 10*3/uL Normal 0-5 [facility] Comment on above: Performed By: #### M 100.2200 #### [facility] [address] [place], [address] Platelet mean volume (Bld) [Entitic vol] 12.0 fL Normal 6.2-12.0 [facility] Comment on above: Performed By: #### M 100.2200 #### [facility] [address] [place], [address] Platelets (Bld) [#/Vol] 259 10*3/uL Normal 150-450 [facility] Comment on above: Performed By: #### M 100.2200 #### [facility] [address] [place], [address] RBC (Bld) [#/Vol] 4.04 10*6/uL Low 4.2-5.4 [facility] Comment on above: Performed By: #### M 100.2200 #### [facility] [address] [place], [address] RDW SD 47.2 fl High 35.1-43.9 [facility] Comment on above: Performed By: #### M 100.2200 #### [facility] [address] [place], [address] WBC (Bld) [#/Vol] 11.6 10*3/uL High 4.4-11.0 [facility] Comment on above: Performed By: #### M 100.2200 #### [facility] [address] [place], [address] CPK Total, Creatine Kinaseon 09-22-2024 CPK TOTAL 316 U/L High 24-195 [facility] Comment on above: Performed By: #### L 501.3620 #### [facility] [address] [place], [address] Carbon dioxide, total [Moles /volume] in Central venous bloodOrdered By: Alexis Quijano on 09-22-2024 CO2 [Moles/Vol] 25.5 mmol/L 21.0-32.0 [facility] Chest 1 View (Portable)on Chest 1 View (Portable) [facility] Imaging Services [address] [place], [place] [id number] Chest 1 View (Portable) MR#: [id number] Acct: [id number] Name: AIDEN FIELDS Rep #: [id number] : 1945 F 78 From: Warren Mullen MD PCP: Dr. Erica Richardson DO Status: REG ER Study: Chest 1 View (Portable) Date of Exam: 09/22/24 Exam# [id number] Ordering Dr: Alexis Quijano MD PROCEDURE: CHEST 1 VIEW (PORTABLE) 09/22/2024 REASON FOR EXAM: SHORTNESS OF BREATH TECHNIQUE: Frontal view of the chest. COMPARISON: 07/04/2024. FINDINGS: The heart is normal in size. Right chest Port-A-Cath. The lungs are clear. Right humeral plate and screw fixation. Left rib plate and screw fixation. RAD/Chest 1 View (Portable) IMPRESSION: No acute cardiopulmonary abnormalities. Reading Location: [place] [address] CC: Dr. Alexis Quijano MD; Dr. Erica Richardson DO Gis Manager: Signed Normal [facility] Chloride assayOrdered By: Hermann Quijano on 09-22-2024 Chloride [Moles/Vol] 100 mmol/L 98-108 [facility] Comprehensive Metabolic Prof ilon 09-22-2024 Albumin [Mass/Vol] 3.6 g/dL Normal 3.4-4.8 [facility] Comment on above: Performed By: #### M 100.2200 #### [facility] [address] [place], [place], [address] Albumin/Globulin [Mass ratio] 1.2 {ratio} Normal 0.9-2.4 [facility] Comment on above: Performed By: #### M 100.2200 #### [facility] [address] [place], [address] ALK PHOS 87 U/L Normal 35-104 [facility] Comment on above: Performed By: #### M 100.2200 #### [facility] [address] [place], [address] ALT [Catalytic activity/Vol] 16 U/L Normal <=34 [facility] Comment on above: Result Comment: Hemo lysis present, Results??could be affected. ?? Performed By: #### M 100.2200 #### [facility] [address] [place], [address] AST [Catalytic activity/Vol] 40 U/L High <=31 [facility] Comment on above: Result Comment: Hemo lysis present, Results??could be affected. ?? Performed By: #### M 100.2200 #### [facility] [address] [place], [address] Bilirubin [Mass/Vol] 0.31 mg/dL Normal 0.00-1.30 [facility] Comment on above: Performed By: #### M 100.2200 #### [facility] [address] [place], [address] BUN/CRE 15.0 RATIO Normal 10-20 [facility] Comment on above: Performed By: #### M 100.2200 #### [facility] [address] [place], [address] Calcium [Mass/Vol] 8.6 mg/dL Normal 7.6-11.0 [facility] Comment on above: Performed By: #### M 100.2200 #### [facility] [address] [place], [address] Chloride [Moles/Vol] 100 mmol/L Normal 98-108 [facility] Comment on above: Performed By: #### M 100.2200 #### [facility] [address] [place], [address] CO2 [Moles/Vol] 25.5 mmol/L Normal 21.0-32.0 [facility] Comment on above: Performed By: #### M 100.2200 #### [facility] [address] [place], [address] Creatinine [Mass/Vol] 0.86 mg/dL Normal 0.70-1.20 [facility] Comment on above: Performed By: #### M 100.2200 #### [facility] [address] [place], [address] ECRCL 58.83 ml/min Normal 50-250 [facility] Comment on above: Performed By: #### M 100.2200 #### [facility] [address] [place], [address] GAP 11 Normal 5-15 [facility] Comment on above: Performed By: #### M 100.2200 #### [facility] [address] [place], [address] GFR/1.73 sq M.predicted among non-blacks MDRD (S/P/Bld) [Vol rate/Area] 70 mL/min/{1.73_m2} Normal >60 [facility] Comment on above: Result Comment: mL/m in/1.73m2 CKD-EPI Creatinine Equation (2020) Performed By: #### M 100.2200 #### [facility] [address] [place], [address] Globulin (S) [Mass/Vol] 3.0 g/dL Normal 2.2-4.2 [facility] Comment on above: Performed By: #### M 100.2200 #### [facility] [address] [place], [address] Glucose [Mass/Vol] 97 mg/dL Normal 70-99 [facility] Comment on above: Performed By: #### M 100.2200 #### [facility] [address] [place], [address] Potassium [Moles/Vol] 5.2 mmol/L High 3.3-5.1 [facility] Comment on above: Result Comment: Hemo lysis present, Results??could be affected. ?? Performed By: #### M 100.2200 #### [facility] [address] [place], [address] Sodium [Moles/Vol] 136 mmol/L Normal 133-145 [facility] Comment on above: Performed By: #### M 100.2200 #### [facility] [address] [place], [address] T PROT 6.6 g/dL Normal 5.9-8.4 [facility] Comment on above: Performed By: #### M 100.2200 #### [facility] [address] [place], [address] Urea nitrogen [Mass/Vol] 13 mg/dL Normal 4-19 [facility] Comment on above: Performed By: #### M 100.2200 #### [facility] [address] [place], [address] Emergency Department Summary on 09-22-2024 Emergency Department Summary [facility] Medical Records Department [address] [place] [address] Emergency Department Summary 09/22/24 MR#: [id number] Acct: [id number] Name: AIDEN FIELDS Consuelo Rep #: [id number] : 1945 78 From: Alexis Quijano MD [...] 12 hours which is unusual for her. [facility] Medical History Anxiety and depression Hypoparathyroidism after [...] Neosporin Allergy Unknown Unknown Verified 09/22/24 20:06 ([id number])) neomycin (From Neosporin Allergy Unknown Unknown Verified 09/22/24 20:06 ([id number]-wssad)) polymyxin B (From Neosporin Allergy Unknown Unknown Verified 09/22/24 20:06 (qdl-[id number]-[id number])) Antihistamines - Alkylamine Allergy PT UNSURE Verified [...] Smoking Sta (more content not included)... Normal [facility] Eosinophil percentageOrdered By: Alexis Quijano on 09-22-2024 Eosinophils/100 WBC (Bld) 2.9 % 0-5 [facility] Erythrocyte distribution wid th ratioOrdered By: Alexis Quijano on 09-22-2024 Erythrocyte distribution width (RBC) [Ratio] 13.1 % 11.6-14.6 [facility] Erythrocyte distribution wid th standard deviationOrdered By: Alexis Quijano on 09-22-2024 Erythrocyte distribution width (RBC) [Ratio] 47.2 fl High 35.1-43.9 [facility] Glomerular filtration rate ( GFR) estimation/1.73 sq m using serum, plasma, or whole bOrdered By: Alexis Quijano on 09-22-2024 GFR/1.73 sq M.predicted among non-blacks MDRD (S/P/Bld) [Vol rate/Area] 70 mL/min/{1.73_m2} >60 [facility] Comment on above: mL/min/1.73m2 CKD-EP I Creatinine Equation (2020) H AND P Exam - [place] 09-22-2024 H&P Exam - Hospitalist [facility] Medical Records Department [address] [place] [address] H P Exam - Hospitalist 09/22/24 2244 MR#: [id number] Acct: [id number] Name: AIDEN FIELDS Rep #: [id number] : 1945 78 From: Aggie Bolton MD PCP: Dr. Erica Richardson, DO Status:ADM IN Location: [place] [address] HPI - General General Date of Admission: [...] history Chronic anemia who presents to the [facility] ED on 09/22/2024 with history of [...] and Rocephin 1 g IV x 1. [facility] Medical History Anxiety and depression [...] gram tablet 1,000 mg PO DAILY SHINGLES 2 1 11/22/22 History dexamethasone sodium phosphate 0.1 [...] Neosporin Allergy Unknown Unknown Verified 09/22/24 20:06 ([id number])) neomycin (From Neosporin Allergy Unknown Unknown Verified 09/22/24 20:06 (n (more content not included)... Normal [facility] Hematocrit Auto (Bld) [Volum e fraction]Ordered By: Alexis Quijano on 09-22-2024 Hematocrit (Bld) [Volume fraction] 39.5 % 37-47 [facility] Hemoglobin measurementOrdere d By: Alexis Quijano on 09-22-2024 Hemoglobin (Bld) [Mass/Vol] 13.2 g/dL 12.0-15.0 [facility] Immature granulocytes/100 WB C Auto (Bld)Ordered By: Alexis Quijano on 09-22-2024 Immature granulocytes/100 WBC (Bld) 0.400 % 0.0-0.9 [facility] Comment on above: IG% - Immature Granu locytes (promyelocytes, myelocytes and metamyelocytes) > 1% indicates that a LEFT SHIFT is Present. Influenza virus A and B and SARS-CoV-2 (COVID-19) and Respiratory syncytial virus RNAOrdered By: Alexis Quijano on 09-22-2024 SARS-CoV-2 (COVID-19) RNA LEONA+probe Ql (Unsp spec) [facility] Ketones Test strip Ql (U)Ord ered By: Alexis Quijano on 09-22-2024 Ketones Ql (U) Negative Negative [facility] Laboratory - Chemistry and C hemistry - challengeOrdered By: Alexis Quijano on 09-22-2024 AST [Catalytic activity/Vol] 40 U/L High <32 [facility] Comment on above: Hemolysis present, R esults could be affected. M100.678on 09-22-2024 M100.678 Pending SARS-CoV-2 (COVID 19) Negative INFLUENZA A Negative INFLUENZA B Negative RSV PCR Negative Normal [facility] Comment on above: Performed By: #### M 100.678, L400.0001 #### [facility] [address] [place], [address] MCV (mean corpuscular volume ) determinationOrdered By: Alexis Quijano on 09-22-2024 MCV (RBC) [Entitic vol] 97.8 fL 81-99 [facility] Mean corpuscular hemoglobin (MCH) determinationOrdered By: Alexis Quijano on 09-22-2024 MCH (RBC) [Entitic mass] 32.7 pg High 27.0-32.0 [facility] Mean corpuscular hemoglobin concentration (MCHC) determinationOrdered By: Alexis Quijano on 09-22-2024 MCHC (RBC) [Mass/Vol] 33.4 g/dL 32-36 [facility] Mean platelet volume determi nationOrdered By: Alexis Quijano on 09-22-2024 Platelet mean volume (Bld) [Entitic vol] 12.0 fL 6.2-12.0 [facility] Microscopic analysis of urin e for red blood cells (RBC)Ordered By: Alexis Quijano on 09-22-2024 Microscopic analysis of urine for red blood cells (RBC) 0-5 SEEN /hpf 0-5 [facility] Monocyte percentageOrdered B y: Alexis Quijano on 09-22-2024 Monocytes/100 WBC (Bld) 7.5 % 0-10 [facility] Mucus LM Ql (Urine sed)Order ed By: Alexis Quijano on 09-22-2024 Mucus Ql (Urine sed) 0 SEEN /hpf [facility] Neutrophil percentageOrdered By: Aleixs Quijano on 09-22-2024 Neutrophils/100 WBC (Bld) 69.5 % 47-70 [facility] Nitrite Test strip Ql (U)Ord ered By: Alexis Quijano on 09-22-2024 Nitrite Ql (U) Positive High Negative [facility] Nucleated red blood cell per centageOrdered By: Alexis Quijano on 09-22-2024 Nucleated RBC/100 WBC (Bld) [Ratio] 0 % 0-5 [facility] Platelet countOrdered By: Hermann Quijano on 09-22-2024 Platelets (Bld) [#/Vol] 259 10*3/uL 150-450 [facility] Potassium measurement (mass/ volume)Ordered By: Alexis Quijano on 09-22-2024 Potassium (Unsp spec) [Mass/Vol] 5.2 mmol/L High 3.3-5.1 [facility] Comment on above: Hemolysis present, R esults could be affected. Protein Test strip Ql (U)Ord ered By: Alexis Quijano on 09-22-2024 Protein Ql (U) 15 mg/dl High Negative [facility] RBC Auto (Bld) [#/Vol]Ordere d By: Alexis Quijano on 09-22-2024 RBC (Bld) [#/Vol] 4.04 10*6/uL Low 4.2-5.4 [facility] Serum creatinine measurement (mass/volume)Ordered By: Alexis Quijano on 09-22-2024 Creatinine [Mass/Vol] 0.86 mg/dL 0.70-1.20 [facility] Serum globulin measurementOr dered By: Alexis Quijano on 09-22-2024 Globulin (S) [Mass/Vol] 3.0 g/dL 2.2-4.2 [facility] Serum glucose measurement (m ass/volume)Ordered By: Alexis Quijano on 09-22-2024 Glucose [Mass/Vol] 97 mg/dL 70-99 [facility] Serum or plasma alanine kaur otransferase (ALT) measurementOrdered By: Alexis Quijano on 09-22-2024 ALT [Catalytic activity/Vol] 16 U/L <35 [facility] Comment on above: Hemolysis present, R esults could be affected. Serum or plasma albumin rajni urement (mass/volume)Ordered By: Alexis Quijano on 09-22-2024 Albumin [Mass/Vol] 3.6 g/dL 3.4-4.8 [facility] Serum or plasma albumin/glob ulin mass ratioOrdered By: Alexis Quijano on 09-22-2024 Albumin/Globulin [Mass ratio] 1.2 {ratio} 0.9-2.4 [facility] Serum or plasma alkaline dedra sphatase measurementOrdered By: Alexis Quijano on 09-22-2024 ALP [Catalytic activity/Vol] 87 U/L 35-104 [facility] Serum or plasma calcium rajni urement (mass/volume)Ordered By: Alexis Quijano on 09-22-2024 Calcium [Mass/Vol] 8.6 mg/dL 7.6-11.0 [facility] Serum or plasma creatine kin ase activityOrdered By: Alexis Quijano on 06-03-2025 CK [Catalytic activity/Vol] 316 U/L High 24-195 [facility] Serum or plasma urea nitroge n measurement (mass/volume)Ordered By: Alexis Quijano on 09-22-2024 Urea nitrogen [Mass/Vol] 13 mg/dL 4-19 [facility] Sodium levelOrdered By: Alexis Quijano on 09-22-2024 Sodium [Moles/Vol] 136 mmol/L 133-145 [facility] Squamous epithelial cells de tection in urine sediment by light microscopyOrdered By: Alexis Quijano on 09-22-2024 Epithelial cells.squamous LM Ql (Urine sed) 0-5 SEEN /hpf 5- [facility] Total proteinOrdered By: Katty Quijano on 09-22-2024 Protein [Mass/Vol] 6.6 g/dL 5.9-8.4 [facility] Urinalysis, Completeon 09-22 BACTERIA 4+ /hpf Normal None Seen [facility] Comment on above: Order Comment: FER CTOR TO SPECIFY Result Comment: NEED TO REORDER Performed By: #### M 100.678, L400.0001 #### [facility] [address] [place], [address] EPI,SQUAMOUS 0-5 SEEN Normal -10 [facility] Comment on above: Order Comment: FER CTOR TO SPECIFY Result Comment: NEED TO REORDER Performed By: #### M 100.678, L400.0001 #### [facility] [address] [place], [address] RBC 0-5 SEEN Normal 0-5 [facility] Comment on above: Order Comment: FER CTOR TO SPECIFY Result Comment: NEED TO REORDER Performed By: #### M 100.678, L400.0001 #### [facility] [address] [place], [address] WBC 50-100 SEEN Normal 0-5 [facility] Comment on above: Order Comment: FER CTOR TO SPECIFY Result Comment: NEED TO REORDER Performed By: #### M 100.678, L400.0001 #### [facility] [address] [place], [address] Mucus Ql (Urine sed) 0 SEEN Normal [facility] Comment on above: Order Comment: COLLE CTOR TO SPECIFY Result Comment: NEED TO REORDER Performed By: #### M 100.678, L400.0001 #### [facility] [address] [place], [address] Urine clarityOrdered By: Katty Quijano on 09-22-2024 Clarity (U) Cloudy Clear [facility] Urine color determinationOrd ered By: Alexis Quijano on 09-22-2024 Color (U) Straw Yellow [facility] Urine cultureOrdered By: Katty Quijano on 09-22-2024 Bacteria identified Cx Nom (U) Citrobacter species Abnormal [facility] Urine glucose detectionOrder ed By: Alexis Quijano on 09-22-2024 Glucose Ql (U) Normal mg/dl Normal [facility] Urine leukocyte esterase det ection by dipstickOrdered By: Alexis Quijano on 09-22-2024 Leukocyte esterase Test strip Ql (U) 500 /ul High Negative [facility] Urine pHOrdered By: Alexis rajput on 09-22-2024 pH (U) 5.0 [pH] 5.0 - 8.0 [facility] Urine sediment bacteria coun t by microscopy (number/high power field)Ordered By: Alexis Quijano on 09-22-2024 Bacteria LM.HPF (Urine sed) [#/Area] 4 /[HPF] None Seen [facility] Urine specific gravity measu rementOrdered By: Alexis Quijano on 09-22-2024 Specific gravity (U) [Rel density] 1.015 1.002-1.030 [facility] Urine urobilinogen measureme ntOrdered By: Alexis Quijano on 09-22-2024 Urobilinogen Ql (U) Normal mg/dl Normal [facility] White blood cell (WBC) count Ordered By: Alexis Quijano on 09-22-2024 WBC (Bld) [#/Vol] 11.6 10*3/uL High 4.4-11.0 [facility] White blood cell countOrdere d By: Alexis Quijano on 09-22-2024 White blood cell count 50-100 SEEN /hpf 0-5 [facility] Urine Cultureon 09-13-2024 [facility] Citrobacter freundii Savoy Count >100,000 Citrobacter freundii: REACTION Cefepime Islt BENJAMIN <=0.12 cefTRIAXone Islt BENJAMIN 0.5 S Ciprofloxacin Islt BENJAMIN 0.5 I Gentamicin Islt BENJAMIN <=1 S levoFLOXacin Islt BENJAMIN 1 I Meropenem Islt BENJAMIN <=0.25 S Nitrofurantoin Islt BENJAMIN <=16 S Pip+Tazo Islt BENJAMIN <=4 S TMP SMX Islt BENJAMIN >=320 R Normal [facility] Comment on above: Performed By: #### M 100.2200 #### [facility] [address] [place], [address] Urine cultureOrdered By: Adelaida Richardson on 09-11-2024 Bacteria identified Cx Nom (U) Citrobacter freundii Abnormal [facility] Urine Cultureon 08-23-2024 [facility] Citrobacter youngae Savoy Count 80,000-100,000 Citrobacter youngae: REACTION Cefepime Islt BENJAMIN <=0.12 cefTRIAXone Islt BENJAMIN 8 R Ciprofloxacin Islt BENJAMIN <=0.06 S Gentamicin Islt BENJAMIN <=1 S levoFLOXacin Islt BENJAMIN <=0.12 S Meropenem Islt BENJAMIN <=0.25 S Nitrofurantoin Islt BENJAMIN <=16 S Pip+Tazo Islt BENJAMIN <=4 S TMP SMX Islt BENJAMIN <=20 S Normal [facility] Comment on above: Performed By: #### M 100.2200 #### [facility] [address] [place], [address] Urine cultureOrdered By: Adelaida Richardson on 08-21-2024 Bacteria identified Cx Nom (U) Citrobacter youngae Abnormal [facility] Urine Cultureon 08-07-2024 [facility] Enterococcus faecali s Savoy Count 11,000-25,000 Enterococcus faecalis: REACTION Ampicillin Islt BENJAMIN <=2 Ciprofloxacin Islt BENJAMIN >=8 R Gentamicin Synergy Susc Islt SYN-R R levoFLOXacin Islt BENJAMIN >=8 R Linezolid Islt BENJAMIN 2 S Nitrofurantoin Islt BENJAMIN <=16 S Streptomycin High Pot Susc Islt SYN-S S Tetracycline Islt BENJAMIN >=16 R Vancomycin Islt BENJAMIN 1 S Normal [facility] Comment on above: Performed By: #### L 501.3620, L500.4050, L100.0100 #### [facility] [address], [address] Urine cultureOrdered By: Adelaida Richardson on 08-05-2024 Bacteria identified Cx Nom (U) Enterococcus faecalis Abnormal [facility] 12 Lead EKGon 07-04-2024 12 Lead EKG [facility] Cardiovascular Services [address] [place] [address] 12 Lead EKG 07/04/24 1343 MR#: [id number] Acct: [id number] Name: AIDEN FIELDS Rep #: [id number] : 1945 78 From: Jose Hamilton MD [...] ECG Confirmed by JOSE HAMILTON MD ([id number]), index editor JUVENCIO MARIA ([id number]) on 07/06/2024 8:17:29 AM Referred By: ANUPAMA Confirmed By: JOSE HAMILTON MD 07/06/24 0817 Date Jose Hamilton MD CC: Dr. Froy Cameron DO; Dr. Erica Richardson DO Signed Normal [facility] Absolute lymphocyte countOrd ered By: Froy Cameron on 07-04-2024 Lymphocytes Auto (Unsp spec) [#/Vol] 1.95 10*/uL 0.83-4.51 [facility] Absolute neutrophil countOrd ered By: Froy Toñoalexandria on 07-04-2024 Neutrophils (Bld) [#/Vol] 6.0 10*3/uL 2.0-7.7 [facility] Amorphous sediment detection in urine sediment by light microscopyOrdered By: Froy Cameron on 07-04-2024 Amorphous sediment LM Ql (Urine sed) 2+ PHOS [facility] Anion gap in Serum or Plasma Ordered By: Froy Cameron on 07-04-2024 Anion gap [Moles/Vol] 12 mmol/L 09-03 [facility] Automated lymphocyte count a s percentage of total leukocytesOrdered By: Froy Cameron on 07-04-2024 Lymphocytes/100 WBC Auto (Unsp spec) 21.2 % [facility] BUN/creatinine ratioOrdered By: Froy Cameron on 07-04-2024 Urea nitrogen/Creatinine [Mass ratio] 20.2 mg/mg High 10- [facility] Basophil percentageOrdered B y: Froy Cameron on 07-04-2024 Basophils/100 WBC (Bld) 0.9 % 0-1 [facility] Bilirubin Test strip Ql (U)O rdered By: Froy Cameron on 07-04-2024 Bilirubin Ql (U) Negative Negative [facility] Bilirubin, totalOrdered By: Froy Cameron on 07-04-2024 Bilirubin [Mass/Vol] 0.35 mg/dL 0.00-1.30 [facility] CBC W/Diff, Automatedon 06-20 Absolute Lymph 1.95 X10 3/uL Normal 0.83-4.51 [facility] Comment on above: Performed By: #### M 100.2200 #### [facility] [address] [place], [address] Absolute Neut 6.0 X10 3/uL Normal 2.0-7.7 [facility] Comment on above: Performed By: #### M 100.2200 #### [facility] [address] [place], [address] Basophils/100 WBC (Bld) 0.9 % Normal 0-1 [facility] Comment on above: Performed By: #### M 100.2200 #### [facility] [address] [place], [address] Eosinophils/100 WBC (Bld) 3.6 % Normal 0-5 [facility] Comment on above: Performed By: #### M 100.2200 #### [facility] [address] [place], [address] Erythrocyte distribution width (RBC) [Ratio] 13.4 % Normal 11.6-14.6 [facility] Comment on above: Performed By: #### M 100.2200 #### [facility] [address] [place], [address] Hematocrit (Bld) [Volume fraction] 36.9 % Low 37-47 [facility] Comment on above: Performed By: #### M 100.2200 #### [facility] [address] [place], [address] Hemoglobin (Bld) [Mass/Vol] 12.3 g/dL Normal 12.0-15.0 [facility] Comment on above: Performed By: #### M 100.2200 #### [facility] [address] [place], [address] IG% 0.400 Normal 0.0-0.9 [facility] Comment on above: Result Comment: IG% - Immature Granulocytes (promyelocytes, myelocytes and metamyelocytes) > 1% indicates that a LEFT SHIFT is Present. Performed By: #### M 100.2200 #### [facility] [address] [place], [address] Lymphocytes/100 WBC (Bld) 21.2 % Normal 19-41 [facility] Comment on above: Performed By: #### M 100.2200 #### [facility] [address] [place], [address] MCH (RBC) [Entitic mass] 32.5 pg High 27.0-32.0 [facility] Comment on above: Performed By: #### M 100.2200 #### [facility] [address] [place], [address] MCHC (RBC) [Mass/Vol] 33.3 g/dL Normal 32-36 [facility] Comment on above: Performed By: #### M 100.2200 #### [facility] [address] [place], [address] MCV (RBC) [Entitic vol] 97.6 fL Normal 81-99 [facility] Comment on above: Performed By: #### M 100.2200 #### [facility] [address] [place], [address] Monocytes/100 WBC (Bld) 8.9 % Normal 0-10 [facility] Comment on above: Performed By: #### M 100.2200 #### [facility] [address] [place], [address] Neutrophils/100 WBC (Bld) 65.0 % Normal 47-70 [facility] Comment on above: Performed By: #### M 100.2200 #### [facility] [address] [place], [address] Nucleated RBC (Bld) [#/Vol] 0 10*3/uL Normal 0-5 [facility] Comment on above: Performed By: #### M 100.2200 #### [facility] [address] [place], [address] Platelet mean volume (Bld) [Entitic vol] 11.8 fL Normal 6.2-12.0 [facility] Comment on above: Performed By: #### M 100.2200 #### [facility] [address] [place], [address] Platelets (Bld) [#/Vol] 236 10*3/uL Normal 150-450 [facility] Comment on above: Performed By: #### M 100.2200 #### [facility] [address] [place], [address] RBC (Bld) [#/Vol] 3.78 10*6/uL Low 4.2-5.4 [facility] Comment on above: Performed By: #### M 100.2200 #### [facility] [address] [place], [address] RDW SD 48.0 fl High 35.1-43.9 [facility] Comment on above: Performed By: #### M 100.2200 #### [facility] [address] [place], [address] WBC (Bld) [#/Vol] 9.2 10*3/uL Normal 4.4-11.0 [facility] Comment on above: Performed By: #### M 100.2200 #### [facility] [address] [place], [address] Carbon dioxide, total [Moles /volume] in Central venous bloodOrdered By: Froy Cameron on 07-04-2024 CO2 [Moles/Vol] 26.3 mmol/L 21.0-32.0 [facility] Chest PA and Lateralon 07-04 Chest PA and Lateral [facility] Imaging Services [address] [place] [address] Chest PA and Lateral MR#: [id number] Acct: [id number] Name: AIDEN FIELDS Rep #: [id number] : 1945 F 78 From: Reagan Nguyen PCP: Dr. Erica Richardson, DO Status: REG ER Study: Chest PA and Lateral Date of Exam: 07/04/24 Exam# [id number] Ordering Dr: Froy Cameron DO PROCEDURE: CHEST [...] Froy Cameron, DO; Dr. Erica Richardson, DO Gis Manager: Signed Normal [facility] Chloride assayOrdered By: Jonnie Cameron on 07-04-2024 Chloride [Moles/Vol] 100 mmol/L 98-108 [facility] Comprehensive Metabolic Prof ilon 07-04-2024 Albumin [Mass/Vol] 4.0 g/dL Normal 3.4-4.8 [facility] Comment on above: Performed By: #### M 100.2200 #### [facility] [address] [place], [address] Albumin/Globulin [Mass ratio] 1.4 {ratio} Normal 0.9-2.4 [facility] Comment on above: Performed By: #### M 100.2200 #### [facility] [address] [place], [address] ALK PHOS 82 U/L Normal 35-104 [facility] Comment on above: Performed By: #### M 100.2200 #### [facility] [address] [place], [address] ALT [Catalytic activity/Vol] 12 U/L Normal <=34 [facility] Comment on above: Performed By: #### M 100.2200 #### [facility] [address] [place], [address] AST [Catalytic activity/Vol] 21 U/L Normal <=31 [facility] Comment on above: Performed By: #### M 100.2200 #### [facility] [address] [place], [address] Bilirubin [Mass/Vol] 0.35 mg/dL Normal 0.00-1.30 [facility] Comment on above: Performed By: #### M 100.2200 #### [facility] [address] [place], [address] BUN/CRE 20.2 RATIO High 10-20 [facility] Comment on above: Performed By: #### M 100.2200 #### [facility] [address] [place], [address] Calcium [Mass/Vol] 8.6 mg/dL Normal 7.6-11.0 [facility] Comment on above: Performed By: #### M 100.2200 #### [facility] [address] [place], [address] Chloride [Moles/Vol] 100 mmol/L Normal 98-108 [facility] Comment on above: Performed By: #### M 100.2200 #### [facility] [address] [place], [address] CO2 [Moles/Vol] 26.3 mmol/L Normal 21.0-32.0 [facility] Comment on above: Performed By: #### M 100.2200 #### [facility] [address] [place], [address] Creatinine [Mass/Vol] 0.79 mg/dL Normal 0.70-1.20 [facility] Comment on above: Performed By: #### M 100.2200 #### [facility] [address] [place], [address] ECRCL 61.64 ml/min Normal 50-250 [facility] Comment on above: Performed By: #### M 100.2200 #### [facility] [address] [place], [address] GAP 12 Normal 5-15 [facility] Comment on above: Performed By: #### M 100.2200 #### [facility] [address] [place], [address] GFR/1.73 sq M.predicted among non-blacks MDRD (S/P/Bld) [Vol rate/Area] 77 mL/min/{1.73_m2} Normal >60 [facility] Comment on above: Result Comment: mL/m in/1.73m2 CKD-EPI Creatinine Equation (2020) Performed By: #### M 100.2200 #### [facility] [address] [place], [address] Globulin (S) [Mass/Vol] 2.9 g/dL Normal 2.2-4.2 [facility] Comment on above: Performed By: #### M 100.2200 #### [facility] [address] [place], [address] Glucose [Mass/Vol] 98 mg/dL Normal 70-99 [facility] Comment on above: Performed By: #### M 100.2200 #### [facility] [address] [place], [address] Potassium [Moles/Vol] 4.0 mmol/L Normal 3.3-5.1 [facility] Comment on above: Performed By: #### M 100.2200 #### [facility] [address] [place], [address] Sodium [Moles/Vol] 139 mmol/L Normal 133-145 [facility] Comment on above: Performed By: #### M 100.2200 #### [facility] [address] [place], [address] T PROT 6.9 g/dL Normal 5.9-8.4 [facility] Comment on above: Performed By: #### M 100.2200 #### [facility] [address] [place], [address] Urea nitrogen [Mass/Vol] 16 mg/dL Normal 4-19 [facility] Comment on above: Performed By: #### M 100.1368 #### [facility] [address] [place], [address] Emergency Department Summary on 07-04-2024 Emergency Department Summary [facility] Medical Records Department [address] [place] [address] Emergency Department Summary 07/04/24 MR#: [id number] Acct: [id number] Name: AIDEN FIELDS Rep #: [id number] : 1945 78 From: Froy Cameron DO [...] this could be due to her medications. [facility] Medical History Anxiety and depression Hypoparathyroidism after [...] gram tablet 1,000 mg PO DAILY SHINGLES 08/01/2 1 11/22/22 History dexamethasone sodium phosphate 0.1 [...] Neosporin Allergy Unknown Unknown Verified 07/04/24 13:01 ([id number])) neomycin (From Neosporin Allergy Unknown Unknown Verified 03/02/24 21:55 ([id number])) polymyxin B (From Neosporin Allergy Unknown Unknown Verified 03/02/24 21:55 ([id number])) Antihistamines - Alkylamine Allergy PT UNSURE Verified [...] thyroidectomy S (more content not included)... Normal [facility] Eosinophil percentageOrdered By: Froy Cameron on 07-04-2024 Eosinophils/100 WBC (Bld) 3.6 % 0-5 [facility] Epithelial cells.squamous LM Ql (Urine sed)Ordered By: Froy Cameron on 07-04-2024 Epithelial cells.squamous LM.HPF (Urine sed) [#/Area] 0 /[HPF] 5-10 [facility] Erythrocyte distribution wid th ratioOrdered By: Froy Cameron on 07-04-2024 Erythrocyte distribution width (RBC) [Ratio] 13.4 % 11.6-14.6 [facility] Erythrocyte distribution wid th standard deviationOrdered By: Froy Cameron on 07-04-2024 Erythrocyte distribution width (RBC) [Entitic vol] 48.0 fL High 35.1-43.9 [facility] Erythrocyte distribution width (RBC) [Ratio] 48.0 fl High 35.1-43.9 [facility] Estimation of creatinine wilmer aranceOrdered By: Froy Cameron on 07-04-2024 Estimated Creatinine Clearance Calc 61.64 ml/min 50-250 [facility] GFR/1.73 sq M.predicted kai g non-blacks MDRD (S/P/Bld) [Vol rate/Area]Ordered By: Froy Cameron on 07-04-2024 Estimated GFR (MDRD) Non-Af Amer 77 >60 [facility] Comment on above: mL/min/1.73m2 CKD-EP I Creatinine Equation (2020) Glomerular filtration rate ( GFR) estimation/1.73 sq m using serum, plasma, or whole bOrdered By: Froy Cameron on 07-04-2024 GFR/1.73 sq M.predicted among non-blacks MDRD (S/P/Bld) [Vol rate/Area] 77 mL/min/{1.73_m2} >60 [facility] Comment on above: mL/min/1.73m2 CKD-EP I Creatinine Equation (2020) Glucose Ql (U)Ordered By: Jonnie Cameron on 07-04-2024 Urine Glucose (UA) Normal mg/dl Normal [facility] Hematocrit Auto (Bld) [Volum e fraction]Ordered By: Froy Cameron on 07-04-2024 Hematocrit (Bld) [Volume fraction] 36.9 % Low 37-47 [facility] Hemoglobin measurementOrdere d By: Froy Cameron on 07-04-2024 Hemoglobin (Bld) [Mass/Vol] 12.3 g/dL 12.0-15.0 [facility] Immature granulocytes/100 WB C Auto (Bld)Ordered By: Froy Cameron on 07-04-2024 Immature granulocytes/100 WBC (Bld) 0.400 % 0.0-0.9 [facility] Comment on above: IG% - Immature Granu locytes (promyelocytes, myelocytes and metamyelocytes) > 1% indicates that a LEFT SHIFT is Present. Influenza virus A and B and SARS-CoV-2 (COVID-19) and Respiratory syncytial virus RNAOrdered By: Froy Cameron on 07-04-2024 SARS-CoV-2 (COVID-19) RNA LEONA+probe Ql (Unsp spec) [facility] Ketones Test strip Ql (U)Ord ered By: Froy Cameron on 07-04-2024 Ketones Ql (U) Negative Negative [facility] Laboratory - Chemistry and C hemistry - challengeOrdered By: Froy Cameron on 07-04-2024 AST [Catalytic activity/Vol] 21 U/L <32 [facility] Lymphocytes Auto (Unsp spec) [#/Vol]Ordered By: Froy Cameron on 07-04-2024 Lymphocytes (Bld) [#/Vol] 1.95 10*3/uL 0.83-4.51 [facility] Lymphocytes/100 WBC Auto (Un sp spec)Ordered By: Froy Cameron on 07-04-2024 Lymphocytes/100 WBC (Bld) 21.2 % 19-41 [facility] M100.678on 07-04-2024 M100.678 SARS-CoV-2 (COVID 19 ) Negative INFLUENZA A Negative INFLUENZA B Negative RSV PCR Negative Normal [facility] Comment on above: Performed By: #### L 501.3620, L500.4050, L100.0100 #### [facility] [address] [place] [address], [address] MCV (mean corpuscular volume ) determinationOrdered By: Froy Cameron on 07-04-2024 MCV (RBC) [Entitic vol] 97.6 fL 81-99 [facility] Mean corpuscular hemoglobin (MCH) determinationOrdered By: Froy Cameron on 07-04-2024 MCH (RBC) [Entitic mass] 32.5 pg High 27.0-32.0 [facility] Mean corpuscular hemoglobin concentration (MCHC) determinationOrdered By: Froy Cameron on 07-04-2024 MCHC (RBC) [Mass/Vol] 33.3 g/dL 32-36 [facility] Mean platelet volume determi nationOrdered By: Froy Cameron on 07-04-2024 Platelet mean volume (Bld) [Entitic vol] 11.8 fL 6.2-12.0 [facility] Microscopic analysis of urin e for red blood cells (RBC)Ordered By: Froy Cameron on 07-04-2024 Microscopic analysis of urine for red blood cells (RBC) 0 SEEN /hpf 0-5 [facility] Urine RBC 0 SEEN /hpf 0-5 [facility] Monocyte percentageOrdered B y: Froy Cameron on 07-04-2024 Monocytes/100 WBC (Bld) 8.9 % 0-10 [facility] Mucus LM Ql (Urine sed)Order ed By: Froy Cameron on 07-04-2024 Mucus Ql (Urine sed) 0 SEEN /hpf [facility] Neutrophil percentageOrdered By: Froy Cameron on 07-04-2024 Neutrophils/100 WBC (Bld) 65.0 % 47-70 [facility] Nitrite Test strip Ql (U)Ord ered By: Froy Cameron on 07-04-2024 Nitrite Ql (U) Negative Negative [facility] Nucleated red blood cell per centageOrdered By: Froy Cameron on 07-04-2024 Nucleated RBC/100 WBC (Bld) [Ratio] 0 % 0-5 [facility] Platelet countOrdered By: Jonnie Cameron on 07-04-2024 Platelets (Bld) [#/Vol] 236 10*3/uL 150-450 [facility] Potassium (Unsp spec) [Mass/ Vol]Ordered By: Froy Cameron on 07-04-2024 Potassium [Moles/Vol] 4.0 mmol/L 3.3-5.1 [facility] Potassium measurement (mass/ volume)Ordered By: Froy Cameron on 07-04-2024 Potassium (Unsp spec) [Mass/Vol] 4.0 mmol/L 3.3-5.1 [facility] Protein Test strip Ql (U)Ord ered By: Froy Cameron on 07-04-2024 Protein Ql (U) Negative Negative [facility] RBC Auto (Bld) [#/Vol]Ordere d By: Froy Cameron on 07-04-2024 RBC (Bld) [#/Vol] 3.78 10*6/uL Low 4.2-5.4 [facility] Serum creatinine measurement (mass/volume)Ordered By: Froy Cameron on 07-04-2024 Creatinine [Mass/Vol] 0.79 mg/dL 0.70-1.20 [facility] Serum globulin measurementOr dered By: Froy Cameron on 07-04-2024 Globulin (S) [Mass/Vol] 2.9 g/dL 2.2-4.2 [facility] Serum glucose measurement (m ass/volume)Ordered By: Froy Cameron on 07-04-2024 Glucose [Mass/Vol] 98 mg/dL 70-99 [facility] Serum or plasma alanine kaur otransferase (ALT) measurementOrdered By: Froy Cameron on 07-04-2024 ALT [Catalytic activity/Vol] 12 U/L <35 [facility] Serum or plasma albumin rajni urement (mass/volume)Ordered By: Froy Cameron on 07-04-2024 Albumin [Mass/Vol] 4.0 g/dL 3.4-4.8 [facility] Serum or plasma albumin/glob ulin mass ratioOrdered By: Froy Cameron on 07-04-2024 Albumin/Globulin [Mass ratio] 1.4 {ratio} 0.9-2.4 [facility] Serum or plasma alkaline dedra sphatase measurementOrdered By: Froy Cameron 07-04-2024 ALP [Catalytic activity/Vol] 82 U/L 35-104 [facility] Serum or plasma calcium rajni urement (mass/volume)Ordered By: Froy Cameron 07-04-2024 Calcium [Mass/Vol] 8.6 mg/dL 7.6-11.0 [facility] Serum or plasma urea nitroge n measurement (mass/volume)Ordered By: Froy Cameron 07-04-2024 Urea nitrogen [Mass/Vol] 16 mg/dL 4-19 [facility] Sodium levelOrdered By: Froy Cameron 07-04-2024 Sodium [Moles/Vol] 139 mmol/L 133-145 [facility] Squamous epithelial cells de tection in urine sediment by light microscopyOrdered By: Froy Cameron 07-04-2024 Epithelial cells.squamous LM Ql (Urine sed) 0 SEEN /hpf 5-10 [facility] TSH DL <= 0.005 mIU/L QnOrde red By: Froy Cameron on 07-04-2024 Thyroid Stimulating Hormone (TSH) 0.164 uIU/mL Low 0.300-4.200 [facility] TSH Qn 0.164 uIU/mL Low 0.300-4.200 [facility] Thyroid Stim Hormone (TSH)on 07-04-2024 TSH 0.164 uIU/mL Low 0.300-4.200 [facility] Comment on above: Performed By: #### M 100.2200 #### [facility] [address] [place], [address] Total proteinOrdered By: Zeenat Cameron on 07-04-2024 Protein [Mass/Vol] 6.9 g/dL 5.9-8.4 [facility] Urinalysis, Completeon 07-04 AMORPHOUS 2+ PHOS Normal [facility] Comment on above: Order Comment: FER CTOR TO SPECIFY Performed By: #### M 100.2200 #### [facility] [address] [place], [address] RBC 0 SEEN Normal 0-5 [facility] Comment on above: Order Comment: FER CTOR TO SPECIFY Performed By: #### M 100.2200 #### [facility] [address] [place], [address] WBC 0-5 SEEN Normal 0-5 [facility] Comment on above: Order Comment: FER CTOR TO SPECIFY Performed By: #### M 100.2200 #### [facility] [address] [place], [address] BACTERIA 0 SEEN Normal None Seen [facility] Comment on above: Order Comment: FER CTOR TO SPECIFY Performed By: #### M 100.2200 #### [facility] [address] [place], [address] EPI,SQUAMOUS 0 SEEN Normal 5-10 [facility] Comment on above: Order Comment: FER CTOR TO SPECIFY Performed By: #### M 100.2200 #### [facility] [address] [place], [address] Mucus Ql (Urine sed) 0 SEEN Normal [facility] Comment on above: Order Comment: FER CTOR TO SPECIFY Performed By: #### M 100.2205 #### [facility] [address] [place], [place], [id number] Urine blood detectionOrdered By: Froy Cameron on 07-04-2024 Urine Occult Blood Negative Negative [facility] Urine clarityOrdered By: Zeenat Cameron on 07-04-2024 Clarity (U) Clear Clear [facility] Urine color determinationOrd ered By: Froy Cameron on 07-04-2024 Color (U) Straw Yellow [facility] Urine glucose detectionOrder ed By: Froy Cameron on 07-04-2024 Glucose Ql (U) Normal mg/dl Normal [facility] Urine leukocyte esterase det ection by dipstickOrdered By: Froy Cameron on 07-04-2024 Leukocyte esterase Test strip Ql (U) Negative Negative [facility] Urine pHOrdered By: Froy gonzalez on 07-04-2024 pH (U) 8.0 [pH] 5.0 - 8.0 [facility] Urine sediment bacteria coun t by microscopy (number/high power field)Ordered By: Froy Cameron on 07-04-2024 Bacteria LM.HPF (Urine sed) [#/Area] 0 /[HPF] None Seen [facility] Urine specific gravity measu rementOrdered By: Froy Cameron on 07-04-2024 Specific gravity (U) [Rel density] 1.010 1.002-1.030 [facility] Urine urobilinogen measureme ntOrdered By: Froy Cameron on 07-04-2024 Urobilinogen Ql (U) Normal mg/dl Normal [facility] Urobilinogen Ql (U)Ordered B y: Froy Cameron on 07-04-2024 Urine Urobilinogen Normal mg/dl Normal [facility] White blood cell (WBC) count Ordered By: Froy Cameron on 07-04-2024 WBC (Bld) [#/Vol] 9.2 10*3/uL 4.4-11.0 [facility] White blood cell countOrdere d By: Froy Cameron on 07-04-2024 Urine WBC 0-5 SEEN /hpf 0-5 [facility] White blood cell count 0-5 SEEN /hpf 0-5 [facility] Chest PA and Lateralon 06-04 Chest PA and Lateral [facility] [address] [place], [place] [address] Chest PA and Lateral MR#: [id number] Acct: [id number] Name: AIDEN FIELDS Rep #: [id number] : 1945 F 78 From: [place] Mckenna PCP: Dr. Erica Richardson DO Status: REG CLI Study: Chest PA and Lateral Date of Exam: 06/04/24 Exam# [id number] Ordering Dr: Erica Richardson DO PROCEDURE: CHEST [...] noted. No evidence of cardiomegaly. Reading Location: [address] CC: Dr. Erica Richardson DO Gis Manager: Signed Normal [facility] Urine Cultureon 05-29-2024 [facility] Enterobacter cloacae complex [place] Count 25,000-50,000 Enterobacter cloacae complex: REACTION Cefepime Islt BENJAMIN <=0.12 Ciprofloxacin Islt BENJAMIN <=0.06 S Gentamicin Islt BENJAMIN <=1 S levoFLOXacin Islt BENJAMIN <=0.12 S Meropenem Islt BENJAMIN <=0.25 S Nitrofurantoin Islt BENJAMIN 32 S Pip+Tazo Islt BENJAMIN <=4 S TMP SMX Islt BENJAMIN >=320 R Normal [facility] Comment on above: Performed By: #### M 100.2200 #### [facility] [address] [place], [address] Absolute lymphocyte countOrd ered By: Erica Richardson on 05-27-2024 Lymphocytes Auto (Unsp spec) [#/Vol] 1.94 10*3/uL 0.83-4.51 [facility] Absolute neutrophil countOrd ered By: Erica Richardson on 05-27-2024 Neutrophils (Bld) [#/Vol] 5.9 10*3/uL 2.0-7.7 [facility] Albumin to globulin ratioOrd ered By: Erica Richardson on 05-27-2024 Albumin/Globulin [Mass ratio] 0.9 {ratio} 0.9-2.4 [facility] Automated lymphocyte count a s percentage of total leukocytesOrdered By: Erica Richardson on 05-27-2024 Lymphocytes/100 WBC Auto (Unsp spec) 21.2 % 19-41 [facility] Basophil percentageOrdered B y: Erica Richardson on 05-27-2024 Basophils/100 WBC (Bld) 0.8 % 0-1 [facility] Bilirubin, totalOrdered By: Erica Ricahrdson on 05-27-2024 Bilirubin [Mass/Vol] 0.60 mg/dL 0.20-1.00 [facility] Comment on above: For patients on eltr ombopag therapy, use of Dimension [place] TBIL is not recommended. Blood urea nitrogen (BUN)/cr eatinine ratioOrdered By: Erica Liboriohattie on 05-27-2024 Urea nitrogen/Creatinine [Mass ratio] 15.1 mg/mg 10-20 [facility] C-reactive protein measureme nt by high sensitivity methodOrdered By: Erica Liboriohattie on 05-27-2024 C-Reactive Protein Extended Range 6.23 mg/L High 0.0-3.0 [facility] Comment on above: C-Reactive Protein ( CRP) provides useful information for thediagnosis, therapy and monitoring of inflammatory processesand associated diseases. For the evaluation of Relative Riskfor Cardiovascular Disease, a High Sensitivity CRP (HSCRP)should be ordered. C-reactive protein measurement by high sensitivity method 6.23 mg/L High 0.0-3.0 [facility] Comment on above: C-Reactive Protein ( CRP) provides useful information for thediagnosis, therapy and monitoring of inflammatory processesand associated diseases. For the evaluation of Relative Riskfor Cardiovascular Disease, a High Sensitivity CRP (HSCRP)should be ordered. CBC W/Diff, Automatedon 02-0 5-2024 Absolute Lymph 1.94 X10 3/uL Normal 0.83-4.51 [facility] Comment on above: Performed By: #### M 100.2200 #### [facility] [address] [place], [address] Absolute Neut 5.9 X10 3/uL Normal 2.0-7.7 [facility] Comment on above: Performed By: #### M 100.2200 #### [facility] [address] [place], [address] Basophils/100 WBC (Bld) 0.8 % Normal 0-1 [facility] Comment on above: Performed By: #### M 100.2200 #### [facility] [address] [place], [address] Eosinophils/100 WBC (Bld) 3.8 % Normal 0-5 [facility] Comment on above: Performed By: #### M 100.2200 #### [facility] [address] [place], [address] Erythrocyte distribution width (RBC) [Ratio] 14.0 % Normal 11.6-14.6 [facility] Comment on above: Performed By: #### M 100.2200 #### [facility] [address] [place], [address] Hematocrit (Bld) [Volume fraction] 39.2 % Normal 37-47 [facility] Comment on above: Performed By: #### M 100.2200 #### [facility] [address] [place], [address] Hemoglobin (Bld) [Mass/Vol] 12.6 g/dL Normal 12.0-15.0 [facility] Comment on above: Performed By: #### M 100.2200 #### [facility] [address] [place], [address] IG% 0.300 Normal 0.0-0.9 [facility] Comment on above: Result Comment: IG% - Immature Granulocytes (promyelocytes, myelocytes and metamyelocytes) > 1% indicates that a LEFT SHIFT is Present. Performed By: #### M 100.2200 #### [facility] [address] [place], [address] Lymphocytes/100 WBC (Bld) 21.2 % Normal 19-41 [facility] Comment on above: Performed By: #### M 100.2200 #### [facility] [address] [place], [address] MCH (RBC) [Entitic mass] 32.0 pg Normal 27.0-32.0 [facility] Comment on above: Performed By: #### M 100.2200 #### [facility] [address] [place], [address] MCHC (RBC) [Mass/Vol] 32.1 g/dL Normal 32-36 [facility] Comment on above: Performed By: #### M 100.2200 #### [facility] [address] [place], [address] MCV (RBC) [Entitic vol] 99.5 fL High 81-99 [facility] Comment on above: Performed By: #### M 100.2200 #### [facility] [address] [place], [address] Monocytes/100 WBC (Bld) 9.0 % Normal 0-10 [facility] Comment on above: Performed By: #### M 100.2200 #### [facility] [address] [place], [address] Neutrophils/100 WBC (Bld) 64.9 % Normal 47-70 [facility] Comment on above: Performed By: #### M 100.2200 #### [facility] [address] [place], [address] Nucleated RBC (Bld) [#/Vol] 0 10*3/uL Normal 0-5 [facility] Comment on above: Performed By: #### M 100.2200 #### [facility] [address] [place], [address] Platelet mean volume (Bld) [Entitic vol] 12.7 fL High 6.2-12.0 [facility] Comment on above: Performed By: #### M 100.2200 #### [facility] [address] [place], [address] Platelets (Bld) [#/Vol] 239 10*3/uL Normal 150-450 [facility] Comment on above: Performed By: #### M 100.220 #### [facility] [address] [place], [address] RBC (Bld) [#/Vol] 3.94 10*6/uL Low 4.2-5.4 [facility] Comment on above: Performed By: #### M 100.2200 #### [facility] [address] [place], [address] RDW SD 51.3 fl High 35.1-43.9 [facility] Comment on above: Performed By: #### M 100.2200 #### [facility] [address] [place], [address] WBC (Bld) [#/Vol] 9.1 10*3/uL Normal 4.4-11.0 [facility] Comment on above: Performed By: #### M 100.2200 #### [facility] [address] [place], [address] CRPon 05-27-2024 C-REACTIVE PROT 6.23 mg/L High 0.0-3.0 [facility] Comment on above: Result Comment: C-Re active Protein (CRP) provides useful information for the diagnosis, therapy and monitoring of inflammatory processes and associated diseases. For the evaluation of Relative Risk for Cardiovascular Disease, a High Sensitivity CRP (HSCRP) should be ordered. Performed By: #### M 100.2200 #### [facility] [address] [place], [address] Carbon dioxide measurementOr dered By: Erica Richardson on 05-27-2024 CO2 [Moles/Vol] 26.0 mmol/L 21.0-32.0 [facility] Chloride measurementOrdered By: Erica Richardson on 05-27-2024 Chloride [Moles/Vol] 99 mmol/L 98-107 [facility] Comprehensive Metabolic Prof ilon 05-27-2024 Albumin [Mass/Vol] 3.6 g/dL Normal 3.2-5.0 [facility] Comment on above: Performed By: #### M 100.2200 #### [facility] [address] [place], [address] Albumin/Globulin [Mass ratio] 0.9 {ratio} Normal 0.9-2.4 [facility] Comment on above: Performed By: #### M 100.2200 #### [facility] [address] [place], [address] ALK P 90 U/L Normal 45-117 [facility] Comment on above: Performed By: #### M 100.2200 #### [facility] [address] [place], [address] ALT [Catalytic activity/Vol] 20 U/L Normal 13-56 [facility] Comment on above: Performed By: #### M 100.2200 #### [facility] [address] [place], [address] AST [Catalytic activity/Vol] 17 U/L Normal 15-37 [facility] Comment on above: Performed By: #### M 100.2200 #### [facility] [address] [place], [address] Bilirubin [Mass/Vol] 0.60 mg/dL Normal 0.20-1.00 [facility] Comment on above: Result Comment: For patients on eltrombopag therapy, use of Dimension [place] TBIL is not recommended. Performed By: #### M 100.2200 #### [facility] [address] [place], [address] BUN/CRE 15.1 RATIO Normal 10-20 [facility] Comment on above: Performed By: #### M 100.2200 #### [facility] [address] [place], [address] CA,Total 8.8 mg/dL Normal 8.5-10.1 [facility] Comment on above: Performed By: #### M 100.2200 #### [facility] [address] [place], [address] Chloride [Moles/Vol] 99 mmol/L Normal 98-107 [facility] Comment on above: Performed By: #### M 100.2200 #### [facility] [address] [place], [address] CO2 [Moles/Vol] 26.0 mmol/L Normal 21.0-32.0 [facility] Comment on above: Performed By: #### M 100.2200 #### [facility] [address] [place], [address] Creatinine [Mass/Vol] 0.79 mg/dL Normal 0.55-1.02 [facility] Comment on above: Result Comment: The validity of the calculated GFR GFRAA in patients over 70 years has not been determined. Clinical correlation is essential. Performed By: #### M 100.2200 #### [facility] [address] [place], [address] EST GFR - AA 90 mL/min Normal >60 [facility] Comment on above: Result Comment: Afri can [place]og[place] GFR Calc Performed By: #### M 100.2200 #### [facility] [address] [place], [address] GAP 11 Normal 5-15 [facility] Comment on above: Performed By: #### M 100.2200 #### [facility] [address] [place], [address] GFR/1.73 sq M.predicted among non-blacks MDRD (S/P/Bld) [Vol rate/Area] 75 mL/min/{1.73_m2} Normal >60 [facility] Comment on above: Result Comment: Non- GFR Calc Performed By: #### M 100.2200 #### [facility] [address] [place], [address] Globulin (S) [Mass/Vol] 4.1 g/dL Normal 2.2-4.2 [facility] Comment on above: Performed By: #### M 100.2200 #### [facility] [address] [place], [address] Glucose [Mass/Vol] 87 mg/dL Normal 74-106 [facility] Comment on above: Performed By: #### M 100.2200 #### [facility] [address] [place], [address] Potassium [Moles/Vol] 3.9 mmol/L Normal 3.5-5.1 [facility] Comment on above: Performed By: #### M 100.2200 #### [facility] [address] [place], [address] Sodium [Moles/Vol] 136 mmol/L Normal 136-145 [facility] Comment on above: Performed By: #### M 100.2200 #### [facility] [address] [place], [address] T PROT 7.7 g/dL Normal 6.4-8.2 [facility] Comment on above: Performed By: #### M 100.2200 #### [facility] [address] [place], [address] Urea nitrogen [Mass/Vol] 12 mg/dL Normal 7-18 [facility] Comment on above: Performed By: #### M 100.2200 #### [facility] [address] [place], [address] Direct serum free thyroxine (FT4) measurementOrdered By: Erica Richardson on 05-27-2024 Free T4 [Mass/Vol] 1.14 ng/dL 0.76-1.46 [facility] Eosinophil percentageOrdered By: Erica Richardson on 05-27-2024 Eosinophils/100 WBC (Bld) 3.8 % 0-5 [facility] Erythrocyte Sed Rateon 05-27 SED RATE 35 mm/hr High 0-30 [facility] Comment on above: Performed By: #### M 100.2200 #### [facility] [address] [place], [address] Erythrocyte distribution wid th ratioOrdered By: Erica Richardson on 05-27-2024 Erythrocyte distribution width (RBC) [Ratio] 14.0 % 11.6-14.6 [facility] Erythrocyte distribution wid th standard deviationOrdered By: Erica Richardson on 05-27-2024 Erythrocyte distribution width (RBC) [Entitic vol] 51.3 fL High 35.1-43.9 [facility] Erythrocyte distribution width (RBC) [Ratio] 51.3 fl High 35.1-43.9 [facility] Erythrocyte sedimentation ra teOrdered By: Erica Richardson on 05-27-2024 ESR (Bld) [Velocity] 35 mm/h High 0-30 [facility] Estimated glomerular filtrat ion rate (GFR) AmericanOrdered By: Erica Richardson on 05-27-2024 Estimated GFR (MDRD) Amer 90 mL/min >60 [facility] Comment on above: GFR Calc Free T3on 05-27-2024 Free T3 [Mass/Vol] 2.0 pg/mL Low 2.18-3.98 [facility] Comment on above: Performed By: #### M 100.5880 #### [facility] [address] [place], [address] Free F4Nkcktge By: Erica Moeller s on 05-27-2024 Free T3 [Mass/Vol] 2.0 pg/mL Low 2.18-3.98 [facility] Free Triiodothyronine (T3) pg/dL 2.0 pg/mL Low 2.18-3.98 [facility] Glomerular filtration rate ( GFR) estimationOrdered By: Erica Richardson on 05-27-2024 Estimated GFR (MDRD) Non-Af Amer 75 mL/min >60 [facility] Comment on above: Non- GFR Calc GFR/1.73 sq M.predicted among non-blacks MDRD (S/P/Bld) [Vol rate/Area] 75 mL/min/{1.73_m2} >60 [facility] Comment on above: Non- GFR Calc Glucose measurementOrdered B y: Erica Richardson on 05-27-2024 Glucose [Mass/Vol] 87 mg/dL 74-106 [facility] Hematocrit Auto (Bld) [Volum e fraction]Ordered By: Erica Richardson on 05-27-2024 Hematocrit (Bld) [Volume fraction] 39.2 % 37-47 [facility] Hemoglobin measurementOrdere d By: Erica Richardson on 05-27-2024 Hemoglobin (Bld) [Mass/Vol] 12.6 g/dL 12.0-15.0 [facility] Immature granulocytes/100 WB C Auto (Bld)Ordered By: Erica Richardosn on 05-27-2024 Immature granulocytes/100 WBC (Bld) 0.300 % 0.0-0.9 [facility] Comment on above: IG% - Immature Granu locytes (promyelocytes, myelocytes and metamyelocytes) > 1% indicates that a LEFT SHIFT is Present. Laboratory - Chemistry and C hemistry - challengeOrdered By: Erica Richardson on 05-27-2024 AST [Catalytic activity/Vol] 17 U/L 15-37 [facility] Lymphocytes Auto (Unsp spec) [#/Vol]Ordered By: Erica Richardson on 05-27-2024 Lymphocytes (Bld) [#/Vol] 1.94 10*3/uL 0.83-4.51 [facility] Lymphocytes/100 WBC Auto (Un sp spec)Ordered By: Erica Richardson on 05-27-2024 Lymphocytes/100 WBC (Bld) 21.2 % 19-41 [facility] MCV (mean corpuscular volume ) determinationOrdered By: Erica Richardson on 05-27-2024 MCV (RBC) [Entitic vol] 99.5 fL High 81-99 [facility] Mean corpuscular hemoglobin (MCH) determinationOrdered By: Erica Richardson on 05-27-2024 MCH (RBC) [Entitic mass] 32.0 pg 27.0-32.0 [facility] Mean corpuscular hemoglobin concentration (MCHC) determinationOrdered By: Erica Richardson on 05-27-2024 MCHC (RBC) [Mass/Vol] 32.1 g/dL 32-36 [facility] Mean platelet volume determi nationOrdered By: Erica Richardson on 05-27-2024 Platelet mean volume (Bld) [Entitic vol] 12.7 fL High 6.2-12.0 [facility] Monocyte percentageOrdered B y: Erica Richardson on 05-27-2024 Monocytes/100 WBC (Bld) 9.0 % 0-10 [facility] Neutrophil percentageOrdered By: Erica Richardson on 05-27-2024 Neutrophils/100 WBC (Bld) 64.9 % 47-70 [facility] Nucleated red blood cell per centageOrdered By: Erica Richardson on 05-27-2024 Nucleated RBC/100 WBC (Bld) [Ratio] 0 % 0-5 [facility] Platelet countOrdered By: Anny Richardson on 05-27-2024 Platelets (Bld) [#/Vol] 239 10*3/uL 150-450 [facility] Potassium measurementOrdered By: Erica Richardson on 05-27-2024 Potassium [Moles/Vol] 3.9 mmol/L 3.5-5.1 [facility] RBC Auto (Bld) [#/Vol]Ordere d By: Erica Richardson on 05-27-2024 RBC (Bld) [#/Vol] 3.94 10*6/uL Low 4.2-5.4 [facility] Serum anion gap measurementO rdered By: Erica Richardson on 05-27-2024 Anion gap [Moles/Vol] 11 mmol/L 5-15 [facility] Serum globulin measurementOr dered By: Erica Richardson on 05-27-2024 Globulin (S) [Mass/Vol] 4.1 g/dL 2.2-4.2 [facility] Serum or plasma alanine kaur otransferase (ALT) measurementOrdered By: Erica Richardson on 05-27-2024 ALT [Catalytic activity/Vol] 20 U/L 13-56 [facility] Serum or plasma albumin rajni urement (mass/volume)Ordered By: Erica Richardson on 05-27-2024 Albumin [Mass/Vol] 3.6 g/dL 3.2-5.0 [facility] Serum or plasma alkaline dedra sphatase measurementOrdered By: Erica Richardson on 05-27-2024 ALP [Catalytic activity/Vol] 90 U/L 45-117 [facility] Serum or plasma calcium rajni urement (mass/volume)Ordered By: Erica Richardson on 05-27-2024 Calcium [Mass/Vol] 8.8 mg/dL 8.5-10.1 [facility] Serum or plasma creatinine m easurement (mass/volume)Ordered By: Erica Richardson on 05-27-2024 Creatinine [Mass/Vol] 0.79 mg/dL 0.55-1.02 [facility] Comment on above: The validity of the calculated GFR & GFRAA in patients over 70 years has not been determined. Clinical correlation is essential. Serum or plasma thyroid stim ulating hormone (TSH) measurement (units/volume)Ordered By: Erica Richardson on 05-27-2024 TSH Qn 2.650 uIU/mL 0.358-3.740 [facility] Serum or plasma urea nitroge n measurement (mass/volume)Ordered By: Erica Richardson on 05-27-2024 Urea nitrogen [Mass/Vol] 12 mg/dL 7-18 [facility] Sodium levelOrdered By: Erica Richardson on 05-27-2024 Sodium [Moles/Vol] 136 mmol/L 136-145 [facility] T4 Free Directon 05-27-2024 T4 FREE DIRECT 1.14 ng/dL Normal 0.76-1.46 [facility] Comment on above: Performed By: #### M 100.2200 #### [facility] [address] [place], [place], [address] TSH QnOrdered By: Erica Richardson on 05-27-2024 Thyroid Stimulating Hormone (TSH) 2.650 uIU/mL 0.358-3.740 [facility] Thyroid Stim Hormone (TSH)on 05-27-2024 TSH 2.650 uIU/mL Normal 0.358-3.740 [facility] Comment on above: Performed By: #### M 100.2200 #### [facility] [address] [place], [place], [id number] Total proteinOrdered By: Adelaida Richardson on 05-27-2024 Protein [Mass/Vol] 7.7 g/dL 6.4-8.2 [facility] Urine cultureOrdered By: Adelaida Richardson on 05-27-2024 Bacteria identified Cx Nom (U) Enterobacter cloacae complex Abnormal [facility] White blood cell (WBC) count Ordered By: Erica Richardson on 05-27-2024 WBC (Bld) [#/Vol] 9.1 10*3/uL 4.4-11.0 [facility] Urine Cultureon 04-26-2024 [facility] Presumptive E. coli [place] Count >100,000 Presumptive E. coli: REACTION Ampicillin [...] TMP SMX Islt BENJAMIN <=20 S Normal [facility] Comment on above: Performed By: #### M 100.2200 #### [facility] [address] [place], [address] Urine cultureOrdered By: Adelaida Richardson on 04-24-2024 Bacteria identified Cx Nom (U) Presumptive E. coli Abnormal [facility] 12 Lead EKGon 03-02-2024 12 Lead EKG [facility] Cardi[facility] Services [address] [place] [address] 12 Lead EKG 03/02/242200 MR#: [id number] Acct: [id number] Name: AIDEN FIELDS Rep #: [id number] : 1945 78 From: Jose Hamilton MD [...] ECG Confirmed by JOSE HAMILTON MD ([id number]), index editor JUVENCIO MARIA ([id number]) on 03/03/2024 6:42:17 AM Referred By: Confirmed By: JOSE HAMILTON MD 03/03/24 0642 Date Jose Hamilton MD CC: Dr. Cheikh Ybarra DO; Dr. Erica Richardson DO Signed Normal [facility] Emergency Department Summary on 03-02-2024 Emergency Department Summary [facility] Medical Records Department [address] [place] [address] Emergency Department Summary 03/02/24 MR#: [id number] Acct: [id number] Name: AIDEN FIELDS Rep #: [id number] : 1945 78 From: Cheikh Ybarra DO [...] any difficulty ambulating around the house today. [facility] Medical History Anxiety and depression Hypoparathyroidism after [...] Neosporin Allergy Unknown Unknown Verified 03/02/24 21:55 ([id number])) neomycin (From Neosporin Allergy Unknown Unknown Verified 03/02/24 21:55 ([id number])) polymyxin B (From Neosporin Allergy Unknown Unknown Verified 03/02/24 21:55 ([id number])) Antihistamines - Alkylamine Allergy PT UNSURE Verified [...] per d (more content not included)... Normal [facility] Absolute lymphocyte countOrd ered By: Vernon Osman on 05-21-2023 Lymphocytes Auto (Unsp spec) [#/Vol] 1.08 10*3/uL 0.83-4.51 [facility] Automated lymphocyte count a s percentage of total leukocytesOrdered By: Vernon Osman on 05-21-2023 Lymphocytes/100 WBC Auto (Unsp spec) 8.5 % 19-41 [facility] Basophil percentageOrdered B y: Vernon Osman on 05-21-2023 Basophils/100 WBC (Bld) 0.6 % 0-1 [facility] Chloride [Moles/Vol] 112 mmol/L 98-107 [facility] Eosinophils/100 WBC (Bld) 2.0 % 0-5 [facility] Glucose [Mass/Vol] 136 mg/dL 74-106 [facility] Comment on above: Fasting Glucose resu lt greater than or equal to 126 mg/dL suggests DIABETES MELLITUS per A.D.A. criteria. Hemoglobin (Bld) [Mass/Vol] 10.3 g/dL 12.0-15.0 [facility] Monocytes/100 WBC (Bld) 9.4 % 0-10 [facility] Neutrophils (Bld) [#/Vol] 10.0 10*3/uL 2.0-7.7 [facility] Neutrophils/100 WBC (Bld) 79.0 % 47-70 [facility] Potassium [Moles/Vol] 3.4 mmol/L 3.5-5.1 [facility] Sodium [Moles/Vol] 142 mmol/L 136-145 [facility] WBC (Bld) [#/Vol] 12.7 10*3/uL 4.4-11.0 [facility] Determination of erythrocyte mean corpuscular volume (MCV)Ordered By: Vernon Osman on 05-21-2023 MCV (RBC) [Entitic vol] 99.1 fL 81-99 [facility] Erythrocyte distribution wid th ratioOrdered By: Vernon Osman on 05-21-2023 Erythrocyte distribution width (RBC) [Ratio] 15.1 % 11.6-14.6 [facility] Erythrocyte distribution wid th standard deviationOrdered By: Vernon Osman on 05-21-2023 Erythrocyte distribution width (RBC) [Entitic vol] 54.6 fL 35.1-43.9 [facility] Hematocrit Auto (Bld) [Volum e fraction]Ordered By: Vernon Osman on 05-21-2023 Hematocrit (Bld) [Volume fraction] 32.2 % 37-47 [facility] Immature granulocytes/100 WB C Auto (Bld)Ordered By: Vernon Osman on 05-21-2023 Immature granulocytes/100 WBC (Bld) 0.500 % 0.0-0.9 [facility] Comment on above: IG% - Immature Granu locytes (promyelocytes, myelocytes and metamyelocytes) > 1% indicates that a LEFT SHIFT is Present. Laboratory - Chemistry and C hemistry - challengeOrdered By: Vernon Osman on 05-21-2023 CO2 [Moles/Vol] 25.0 mmol/L 21.0-32.0 [facility] Urea nitrogen/Creatinine [Mass ratio] 9.1 mg/mg 10-20 [facility] - Hematology and Cell countsOrdered By: Vernon Osman on 05-21-2023 MCH (RBC) [Entitic mass] 31.7 pg 27.0-32.0 [facility] MCHC (RBC) [Mass/Vol] 32.0 g/dL 32-36 [facility] Nucleated RBC/100 WBC (Bld) [Ratio] 0 % 0-5 [facility] Platelets (Bld) [#/Vol] 218 10*3/uL 150-450 [facility] No Panel InformationOrdered By: Vernon Osman on 05-21-2023 Estimated Creatinine Clearance Calc 61.89 ml/min [facility] Estimated GFR (MDRD) Amer 94 mL/min >60 [facility] Comment on above: GFR Calc Estimated GFR (MDRD) Non-Af Amer 78 mL/min >60 [facility] Comment on above: Non- GFR Calc Platelet mean volume Cay[place]-Ec ker (Bld) [Entitic vol]Ordered By: Vernon Osman on 05-21-2023 Platelet mean volume (Bld) [Entitic vol] 11.8 fL 6.2-12.0 [facility] RBC Auto (Bld) [#/Vol]Ordere d By: Vernon Osman on 05-21-2023 RBC (Bld) [#/Vol] 3.25 10*6/uL 4.2-5.4 [facility] Serum or plasma calcium rajni urement (mass/volume)Ordered By: Vernon Osman on 05-21-2023 Calcium [Mass/Vol] 8.0 mg/dL 8.5-10.1 [facility] Serum or plasma creatinine m easurement (mass/volume)Ordered By: Vernon Osman on 05-21-2023 Creatinine [Mass/Vol] 0.77 mg/dL 0.55-1.02 [facility] Comment on above: The validity of the calculated GFR & GFRAA in patients over 70 years has not been determined. Clinical correlation is essential. Serum or plasma urea nitroge n measurement (mass/volume)Ordered By: Vernon Osman on 05-21-2023 Urea nitrogen [Mass/Vol] 7 mg/dL 7-18 [facility] Thin prep Papanicolaou smear with manual screeningOrdered By: Vernon Osman on 05-21-2023 Thin prep Papanicolaou smear with manual screening 5 5-15 [facility] Basophil percentageOrdered B y: Vernon Osman on 05-20-2023 Basophil percentage 3.2 mg/dL 2.5-4.9 [facility] Blood manual differential co mment interpretation (narrative result)Ordered By: Vernon Osman on 05-20-2023 Manual differential comment Donnie (Bld) [Interp] SCANNED [facility] Comment on above: MONOCYTOSIS PRESENT Laboratory - Chemistry and C hemistry - challengeOrdered By: Vernon Osman on 05-20-2023 Magnesium [Mass/Vol] 2.2 mg/dL 1.6-2.6 [facility] Review by pathologistOrdered By: Vernon Osman on 05-20-2023 Pathologist review Donnie (Unsp spec) [Interp] Reviewed [facility] Comment on above: Previous reported re sult: Nohelia mcdowell Edited by: RGOASHOK on 05/20/23:1306Neutrophilic leukocytosis.Macrocytic anemia.Clinical correlation necessary.Greg Guerin M.D. 05/20/23 AMENDED REPORT 05/20/23 1306 PATH REV previously reported as: Nohelia mcdowell Basophil percentageOrdered B y: Aggie Bolton on 05-19-2023 Bilirubin [Mass/Vol] 0.70 mg/dL 0.20-1.00 [facility] Comment on above: For patients on eltr ombopag therapy, use of Dimension [place] TBIL is not recommended. Protein [Mass/Vol] 6.4 g/dL 6.4-8.2 [facility] Basophil percentageOrdered B y: Jorge Cardona on 05-19-2023 Basophil percentage < 10.0 ug/mL 10.0-30.0 [facility] Culture, urineOrdered By: Sonja Cardona on 05-19-2023 Bacteria identified Cx Nom (U) Presumptive E. coli [facility] - Chemistry and C hemistry - challengeOrdered By: Aggie Bolton on 05-19-2023 Albumin/Globulin [Mass ratio] 0.7 {ratio} 0.9-2.4 [facility] ALP [Catalytic activity/Vol] 94 U/L 45-117 [facility] ALT [Catalytic activity/Vol] 15 U/L 13-56 [facility] Globulin (S) [Mass/Vol] 3.8 g/dL 2.2-4.2 [facility] No Panel InformationOrdered By: Jorge Cardona on 05-19-2023 Ethyl Alcohol Level < 3.0 mg/dL [facility] Comment on above: The serum:whole bloo d ethanol ratio is approximately 1.14and varies slightly with hematocrit. Medical Alcohol reference interval and critical value innon-tolerant individuals; 50 - 100 Impairment 100 Intoxication 100 - 250 Severe Poisoning 250 - 400 Deep/possible fatal coma No Panel InformationOrdered By: Aggie Bolton on 05-19-2023 Streptococcus pneumoniae Antigen (M [facility] Thin prep Papanicolaou smear with manual screeningOrdered By: Aggie Bolton on 05-19-2023 Thin prep Papanicolaou smear with manual screening 2.6 g/dL 3.2-5.0 [facility] Thin prep Papanicolaou smear with manual screening 19 U/L 15-37 [facility] Urine Legionella pneumophila antigen detectionOrdered By: Aggie Bolton on 05-19-2023 L. pneumophila Ag Ql (U) [facility] Absolute lymphocyte countOrd ered By: Jorge Cardona on 05-18-2023 Lymphocytes Auto (Unsp spec) [#/Vol] 0.96 10*3/uL 0.83-4.51 [facility] Activated partial thrombopla stin time (aPTT) in platelet poor plasma by coagulation aOrdered By: Jorge Cardona on 05-18-2023 aPTT Coag (PPP) [Time] 30.3 s 24.1-36.2 [facility] Automated lymphocyte count a s percentage of total leukocytesOrdered By: Jorge Cardona on 05-18-2023 Lymphocytes/100 WBC Auto (Unsp spec) 6.3 % 19-41 [facility] Basophil percentageOrdered B y: Jorge Cardona on 05-18-2023 Basophil percentage >100 SEEN /hpf 0-5 [facility] Basophils/100 WBC (Bld) 0.5 % 0-1 [facility] Bilirubin [Mass/Vol] 1.40 mg/dL 0.20-1.00 [facility] Comment on above: For patients on eltr ombopag therapy, use of Dimension [place] TBIL is not recommended. Chloride [Moles/Vol] 109 mmol/L 98-107 [facility] Eosinophils/100 WBC (Bld) 0.3 % 0-5 [facility] Glucose [Mass/Vol] 134 mg/dL 74-106 [facility] Comment on above: Fasting Glucose resu lt greater than or equal to 126 mg/dL suggests DIABETES MELLITUS per A.D.A. criteria. Hemoglobin (Bld) [Mass/Vol] 11.9 g/dL 12.0-15.0 [facility] Lactate [Moles/Vol] 1.7 mmol/L 0.4-2.0 [facility] Monocytes/100 WBC (Bld) 2.4 % 0-10 [facility] Neutrophils (Bld) [#/Vol] 13.7 10*3/uL 2.0-7.7 [facility] Neutrophils/100 WBC (Bld) 89.8 % 47-70 [facility] Potassium [Moles/Vol] 3.8 mmol/L 3.5-5.1 [facility] Comment on above: Slight Hemolysis, Re sult may be falsely increased. Protein [Mass/Vol] 7.5 g/dL 6.4-8.2 [facility] Sodium [Moles/Vol] 139 mmol/L 136-145 [facility] WBC (Bld) [#/Vol] 15.2 10*3/uL 4.4-11.0 [facility] Bilirubin Test strip Ql (U)O rdered By: Jorge Cardona on 05-18-2023 Bilirubin Ql (U) Negative Negative [facility] Determination of erythrocyte mean corpuscular volume (MCV)Ordered By: Jorge Cardona on 05-18-2023 MCV (RBC) [Entitic vol] 97.9 fL 81-99 [facility] Erythrocyte distribution wid th ratioOrdered By: Jorge Cardona on 05-18-2023 Erythrocyte distribution width (RBC) [Ratio] 15.1 % 11.6-14.6 [facility] Erythrocyte distribution wid th standard deviationOrdered By: Jorgemel Cardona on 05-18-2023 Erythrocyte distribution width (RBC) [Entitic vol] 54.4 fL 35.1-43.9 [facility] Hematocrit Auto (Bld) [Volum e fraction]Ordered By: Jorge Cardona on 05-18-2023 Hematocrit (Bld) [Volume fraction] 36.7 % 37-47 [facility] Immature granulocytes/100 WB C Auto (Bld)Ordered By: Jorge Cardona on 05-18-2023 Immature granulocytes/100 WBC (Bld) 0.700 % 0.0-0.9 [facility] Comment on above: IG% - Immature Granu locytes (promyelocytes, myelocytes and metamyelocytes) > 1% indicates that a LEFT SHIFT is Present. International normalized rat io (INR) calculationOrdered By: Jorge Cardona on 05-18-2023 INR Coag (PPP) [Relative time] 1.3 {INR} [facility] Ketones Test strip Ql (U)Ord ered By: Jorge Cardona on 05-18-2023 Ketones Ql (U) 5 mg/dl Negative [facility] - Chemistry and C hemistry - challengeOrdered By: Jorgemel Cardona on 05-18-2023 Albumin/Globulin [Mass ratio] 0.7 {ratio} 0.9-2.4 [facility] ALP [Catalytic activity/Vol] 116 U/L 45-117 [facility] ALT [Catalytic activity/Vol] 17 U/L 13-56 [facility] CO2 [Moles/Vol] 24.0 mmol/L 21.0-32.0 [facility] Globulin (S) [Mass/Vol] 4.3 g/dL 2.2-4.2 [facility] Urea nitrogen/Creatinine [Mass ratio] 18.9 mg/mg 10-20 [facility] - CoagulationOrde red By: Jorge Cardona on 05-18-2023 PT Coag (PPP) [Time] 16.0 s 11.7-14.9 [facility] - Drug toxicology Ordered By: Jorgemel Cardona on 05-18-2023 Amphetamines Ql (U) Negative <1000 ng/mL [facility] Benzodiazepines Ql (U) Negative < 200 ng/mL [facility] Cannabinoids Screen Ql (U) Negative < 50 ng/mL [facility] Cocaine Ql (U) Negative < 300 ng/mL [facility] Opiates Ql (U) Positive < 300 ng/mL [facility] - Hematology and Cell countsOrdered By: Jorge Cardona on 05-18-2023 MCH (RBC) [Entitic mass] 31.7 pg 27.0-32.0 [facility] MCHC (RBC) [Mass/Vol] 32.4 g/dL 32-36 [facility] Nucleated RBC/100 WBC (Bld) [Ratio] 0 % 0-5 [facility] Platelets (Bld) [#/Vol] 199 10*3/uL 150-450 [facility] - Microbiology an d Antimicrobial susceptibilityOrdered By: Jorge Cardona on 05-18-2023 Bacteria identified Cx Nom (Bld) Escherichia coli [facility] SARS-CoV-2 (COVID-19) RNA LEONA+probe Ql (Unsp spec) [facility] Bacteria identified Cx Nom (Bld) No growth in 5 days. [facility] SARS-CoV-2 (COVID-19) RNA LEONA+probe Ql (Unsp spec) [facility] Mucus LM Ql (Urine sed)Order ed By: Jorge Cardona on 05-18-2023 Mucus Ql (Urine sed) 0 SEEN /hpf [facility] Nitrite Test strip Ql (U)Ord ered By: Jorge Cardona on 05-18-2023 Nitrite Ql (U) Positive Negative [facility] No Panel InformationOrdered By: Jorge Cardona on 05-18-2023 Estimated Creatinine Clearance Calc 40.12 ml/min [facility] Estimated GFR (MDRD) Amer 55 mL/min >60 [facility] Comment on above: GFR Calc Estimated GFR (MDRD) Non-Af Amer 46 mL/min >60 [facility] Comment on above: Non- GFR Calc MDMA (Ecstasy) Screen Negative < 500 ng/mL [facility] Urine Barbiturates Screen Negative < 200 ng/mL [facility] Urine Drug Screen Comment [facility] Comment on above: CONFIRMATORY TESTING FOR [...] Methadone Screen Negative < 300 ng/mL [facility] Urine RBC 10-25 SEEN /hpf 0-5 [facility] Platelet mean volume Cayden-Ec ker (Bld) [Entitic vol]Ordered By: Jorge Cardona on 05-18-2023 Platelet mean volume (Bld) [Entitic vol] 12.5 fL 6.2-12.0 [facility] Protein Test strip Ql (U)Ord ered By: Jorge Cardona on 05-18-2023 Protein Ql (U) 100 mg/dl Negative [facility] RBC Auto (Bld) [#/Vol]Ordere d By: Jorge Cardona on 05-18-2023 RBC (Bld) [#/Vol] 3.75 10*6/uL 4.2-5.4 [facility] Serum or plasma calcium rajni urement (mass/volume)Ordered By: Jorge Cardona on 05-18-2023 Calcium [Mass/Vol] 8.6 mg/dL 8.5-10.1 [facility] Serum or plasma creatinine m easurement (mass/volume)Ordered By: Jorge Cardona on 05-18-2023 Creatinine [Mass/Vol] 1.22 mg/dL 0.55-1.02 [facility] Comment on above: The validity of the calculated GFR & GFRAA in patients over 70 years has not been determined. Clinical correlation is essential. Serum or plasma urea nitroge n measurement (mass/volume)Ordered By: Jorge Cardona on 05-18-2023 Urea nitrogen [Mass/Vol] 23 mg/dL 7-18 [facility] Squamous epithelial cells de tection in urine sediment by light microscopyOrdered By: Jorge Cardona on 05-18-2023 Epithelial cells.squamous LM Ql (Urine sed) 0 SEEN /hpf 5-10 [facility] Thin prep Papanicolaou smear with manual screeningOrdered By: Jorge Cardona on 05-18-2023 Thin prep Papanicolaou smear with manual screening 3.2 g/dL 3.2-5.0 [facility] Thin prep Papanicolaou smear with manual screening 22 U/L 15-37 [facility] Comment on above: Slight Hemolysis, Re sult may be falsely increased. Thin prep Papanicolaou smear with manual screening 6 5-15 [facility] Urine blood detectionOrdered By: Jorge Cardona on 05-18-2023 RBC Ql (U) 50 /ul Negative [facility] Urine clarityOrdered By: Jorge Cardona on 05-18-2023 Clarity (U) Cloudy Clear [facility] Urine color determinationOrd ered By: Jorge Cardona on 05-18-2023 Color (U) Yellow Yellow [facility] Urine glucose detectionOrder ed By: Jorge Cardona on 05-18-2023 Glucose Ql (U) Normal mg/dl Normal [facility] Urine leukocyte esterase det ection by dipstickOrdered By: Jorge Cardona on 05-18-2023 Leukocyte esterase Test strip Ql (U) 500 /ul Negative [facility] Urine pHOrdered By: Jorge nguyen on 05-18-2023 pH (U) 6.0 [pH] 5.0 - 8.0 [facility] Urine phencyclidine (PCP) de tectionOrdered By: Jorge Cardona on 05-18-2023 Phencyclidine Ql (U) Negative < 25 ng/mL [facility] Urine sediment bacteria coun t by microscopy (number/high power field)Ordered By: Jorge Cardona on 05-18-2023 Bacteria LM.HPF (Urine sed) [#/Area] 0 /[HPF] None Seen [facility] Urine specific gravity measu rementOrdered By: Jorge Cardona on 05-18-2023 Specific gravity (U) [Rel density] 1.010 1.002-1.030 [facility] Urine urobilinogen measureme ntOrdered By: Jorge Cardona on 05-18-2023 Urobilinogen Ql (U) Normal mg/dl Normal [facility] Absolute lymphocyte countOrd ered By: Bandar Chanel on 11-23-2022 Lymphocytes Auto (Unsp spec) [#/Vol] 0.58 10*3/uL 0.83-4.51 [facility] Basophil percentageOrdered B y: Bandar Chanel on 11-23-2022 Basophils/100 WBC (Bld) 0.5 % 0-1 [facility] Chloride [Moles/Vol] 102 mmol/L 98-107 [facility] Eosinophils/100 WBC (Bld) 0.0 % 0-5 [facility] Glucose [Mass/Vol] 192 mg/dL 74-106 [facility] Comment on above: Fasting Glucose resu lt greater than or equal to 126 mg/dL suggests DIABETES MELLITUS per A.D.A. criteria. Neutrophils (Bld) [#/Vol] 6.0 10*3/uL 2.0-7.7 [facility] Neutrophils/100 WBC (Bld) 89.4 % 47-70 [facility] Potassium [Moles/Vol] 3.3 mmol/L 3.5-5.1 [facility] Sodium [Moles/Vol] 134 mmol/L 136-145 [facility] WBC (Bld) [#/Vol] 6.7 10*3/uL 4.4-11.0 [facility] Blood erythrocytes count (nu mber/volume)Ordered By: Bandar Chanel on 11-23-2022 RBC (Bld) [#/Vol] 4.22 10*6/uL 4.2-5.4 [facility] Blood hemoglobin measurement (mass/volume)Ordered By: Bandar Chanel on 11-23-2022 Hemoglobin (Bld) [Mass/Vol] 12.0 g/dL 12.0-15.0 [facility] Blood lymphocytes/100 leukoc ytesOrdered By: Bandar Chanel on 11-23-2022 Lymphocytes/100 WBC (Bld) 8.7 % 19-41 [facility] Blood manual differential co mment interpretation (narrative result)Ordered By: Bandar Chanel on 11-23-2022 Manual differential comment Donnie (Bld) [Interp] SCANNED [facility] Comment on above: LYMPHOPENIA PRESENT Blood monocytes/100 leukocyt esOrdered By: Bandar Chanel on 11-23-2022 Monocytes/100 WBC (Bld) 1.1 % 0-10 [facility] Blood platelet mean volumeOr dered By: Bandar Chanel on 11-23-2022 Platelet mean volume (Bld) [Entitic vol] 12.1 fL 6.2-12.0 [facility] Determination of erythrocyte mean corpuscular volume (MCV)Ordered By: Bandar Chanel on 11-23-2022 MCV (RBC) [Entitic vol] 90.0 fL 81-99 [facility] Hematocrit Auto (Bld) [Volum e fraction]Ordered By: Bandar Chanel on 11-23-2022 Hematocrit (Bld) [Volume fraction] 38.0 % 37-47 [facility] Laboratory - Chemistry and C hemistry - challengeOrdered By: Bandar Chanel on 11-23-2022 CO2 [Moles/Vol] 26.0 mmol/L 21.0-32.0 [facility] Free T4 [Mass/Vol] 1.40 ng/dL 0.76-1.46 [facility] Urea nitrogen/Creatinine [Mass ratio] 22.8 mg/mg 10-20 [facility] Laboratory - Hematology and Cell countsOrdered By: Bandar Chanel on 11-23-2022 Erythrocyte distribution width (RBC) [Entitic vol] 54.4 fL 35.1-43.9 [facility] Erythrocyte distribution width (RBC) [Ratio] 16.4 % 11.6-14.6 [facility] Immature granulocytes/100 WBC (Bld) 0.300 % 0.0-0.9 [facility] Comment on above: IG% - Immature Granu locytes (promyelocytes, myelocytes and metamyelocytes) > 1% indicates that a LEFT SHIFT is Present. MCH (RBC) [Entitic mass] 28.4 pg 27.0-32.0 [facility] Nucleated RBC/100 WBC (Bld) [Ratio] 0 % 0-5 [facility] MCHC Auto (RBC) [Mass/Vol]Or dered By: Bandar Chanel on 11-23-2022 MCHC (RBC) [Mass/Vol] 31.6 g/dL 32-36 [facility] No Panel InformationOrdered By: Bandar Chanel on 11-23-2022 Estimated Creatinine Clearance Calc 44.80 ml/min [facility] Estimated GFR (MDRD) Amer 133 mL/min >60 [facility] Comment on above: GFR Calc Estimated GFR (MDRD) Non-Af Amer 110 mL/min >60 [facility] Comment on above: Non- GFR Calc Thyroid Stimulating Hormone (TSH) 0.24 uIU/mL 0.358-3.74 [facility] Platelets bldOrdered By: Anthony Chanel on 11-23-2022 Platelets (Bld) [#/Vol] 281 10*3/uL 150-450 [facility] Serum or plasma calcium rajni urement (mass/volume)Ordered By: Bandar Chanel on 11-23-2022 Calcium [Mass/Vol] 8.1 mg/dL 8.5-10.1 [facility] Serum or plasma creatinine m easurement (mass/volume)Ordered By: Bandar Chanel on 11-23-2022 Creatinine [Mass/Vol] 0.57 mg/dL 0.55-1.02 [facility] Comment on above: The validity of the calculated GFR & GFRAA in patients over 70 years has not been determined. Clinical correlation is essential. Serum or plasma urea nitroge n measurement (mass/volume)Ordered By: Bandar Chanel on 11-23-2022 Urea nitrogen [Mass/Vol] 13 mg/dL 7-18 [facility] Thin prep Papanicolaou smear with manual screeningOrdered By: Bandar Chanel on 11-23-2022 Thin prep Papanicolaou smear with manual screening 6 5-15 [facility] Absolute lymphocyte countOrd ered By: Katie Randle on 11-22-2022 Lymphocytes Auto (Unsp spec) [#/Vol] 1.44 10*3/uL 0.83-4.51 [facility] Basophil percentageOrdered B y: Katie Randle on 11-22-2022 Basophils/100 WBC (Bld) 0.7 % 0-1 [facility] Chloride [Moles/Vol] 102 mmol/L 98-107 [facility] Eosinophils/100 WBC (Bld) 6.7 % 0-5 [facility] Glucose [Mass/Vol] 82 mg/dL 74-106 [facility] Neutrophils (Bld) [#/Vol] 6.1 10*3/uL 2.0-7.7 [facility] Neutrophils/100 WBC (Bld) 64.5 % 47-70 [facility] Potassium [Moles/Vol] 4.1 mmol/L 3.5-5.1 [facility] Sodium [Moles/Vol] 137 mmol/L 136-145 [facility] WBC (Bld) [#/Vol] 9.4 10*3/uL 4.4-11.0 [facility] Blood erythrocytes count (nu mber/volume)Ordered By: Katie Randle on 11-22-2022 RBC (Bld) [#/Vol] 3.81 10*6/uL 4.2-5.4 [facility] Blood hemoglobin measurement (mass/volume)Ordered By: Katie Randle on 11-22-2022 Hemoglobin (Bld) [Mass/Vol] 11.0 g/dL 12.0-15.0 [facility] Blood lymphocytes/100 leukoc ytesOrdered By: Katie Randle on 11-22-2022 Lymphocytes/100 WBC (Bld) 15.4 % 19-41 [facility] Blood monocytes/100 leukocyt esOrdered By: Katie Randle on 11-22-2022 Monocytes/100 WBC (Bld) 12.3 % 0-10 [facility] Blood platelet mean volumeOr dered By: Katie Randle on 11-22-2022 Platelet mean volume (Bld) [Entitic vol] 11.8 fL 6.2-12.0 [facility] COVID-19 virus antigen assay Ordered By: Katie Randle on 11-22-2022 SARS-CoV-2 (COVID-19) Ag IA.rapid Ql (Resp) [facility] Determination of erythrocyte mean corpuscular volume (MCV)Ordered By: Katie Randle on 11-22-2022 MCV (RBC) [Entitic vol] 92.1 fL 81-99 [facility] Hematocrit Auto (Bld) [Volum e fraction]Ordered By: Katie Randle on 11-22-2022 Hematocrit (Bld) [Volume fraction] 35.1 % 37-47 [facility] Laboratory - Chemistry and C hemistry - challengeOrdered By: Katie Randle on 11-22-2022 CO2 [Moles/Vol] 32.0 mmol/L 21.0-32.0 [facility] Natriuretic peptide B (Bld) [Mass/Vol] 198.9 pg/mL 0-100 [facility] Urea nitrogen/Creatinine [Mass ratio] 27.9 mg/mg 10-20 [facility] Laboratory - Hematology and Cell countsOrdered By: Katie Randle on 11-22-2022 Erythrocyte distribution width (RBC) [Entitic vol] 56.1 fL 35.1-43.9 [facility] Erythrocyte distribution width (RBC) [Ratio] 16.7 % 11.6-14.6 [facility] Immature granulocytes/100 WBC (Bld) 0.400 % 0.0-0.9 [facility] Comment on above: IG% - Immature Granu locytes (promyelocytes, myelocytes and metamyelocytes) > 1% indicates that a LEFT SHIFT is Present. MCH (RBC) [Entitic mass] 28.9 pg 27.0-32.0 [facility] Nucleated RBC/100 WBC (Bld) [Ratio] 0 % 0-5 [facility] MCHC Auto (RBC) [Mass/Vol]Or dered By: Katie Randle on 11-22-2022 MCHC (RBC) [Mass/Vol] 31.3 g/dL 32-36 [facility] No Panel InformationOrdered By: Katie Randle on 11-22-2022 Estimated Creatinine Clearance Calc 44.80 ml/min [facility] Estimated GFR (MDRD) Amer 132 mL/min >60 [facility] Comment on above: GFR Calc Estimated GFR (MDRD) Non-Af Amer 109 mL/min >60 [facility] Comment on above: Non- GFR Calc Troponin I High Sensitivity 7 pg/mL 3.0-54.0 [facility] Comment on above: Please Note: New [place] t Units and Gender Specific Reference Ranges. For more information see Policy Stat Procedure [place] High Sensitivity Troponin (TNIH) and attachments. Platelets bldOrdered By: Amy Randle on 11-22-2022 Platelets (Bld) [#/Vol] 247 10*3/uL 150-450 [facility] Respiratory pathogens DNA an d RNA panel LEONA+probe (Resp)Ordered By: Bandar Chanel on 11-22-2022 Respiratory Panel (PCR) Rhinovirus [facility] Serum or plasma calcium rajni urement (mass/volume)Ordered By: Katie Randle on 11-22-2022 Calcium [Mass/Vol] 8.3 mg/dL 8.5-10.1 [facility] Serum or plasma creatinine m easurement (mass/volume)Ordered By: Katie Randle on 11-22-2022 Creatinine [Mass/Vol] 0.57 mg/dL 0.55-1.02 [facility] Comment on above: The validity of the calculated GFR & GFRAA in patients over 70 years has not been determined. Clinical correlation is essential. Serum or plasma urea nitroge n measurement (mass/volume)Ordered By: Katie Randle on 11-22-2022 Urea nitrogen [Mass/Vol] 16 mg/dL 7-18 [facility] Thin prep Papanicolaou smear with manual screeningOrdered By: Katie Randle on 11-22-2022 Thin prep Papanicolaou smear with manual screening 3 5-15 [facility] XR CHEST 2V FRONTAL/LATon [facility] XR Chest PA and Lateralon IMPRESSION: No acute cardiopulmonary process. Gis Manager: FILIBERTO Transcribe Date/Time: Nov 22 2022 12:17P Dictated by : SHEN ESQUIVEL MD This examination was interpreted and the report reviewed and electronically signed by: SHEN ESQUIVEL MD on Nov 22 2022 12:20PM [facility] DIVISION OF RADIOLOGY * * *Final [...] the thoracolumbar junction. DIVISION OF RADIOLOGY Provider, [facility] Isidro Warren - 11/22/2022 * * *Final [...] junction. IMPRESSION IMPRESSION: No acute cardiopulmonary process. Gis Manager: PSCB Transcribe Date/Time: Nov 22 2022 12:17P Dictated by : SHEN ESQUIVEL MD This examination was interpreted and the report reviewed and electronically signed by: SHEN ESQUIVEL MD on Nov 22 2022 12:20PM [facility] Radiology Study observation (narrative) [facility] X[facility] Chest PA and LateralOrder ed By: Ccf Provider on 11-22-2022 [facility] Laboratory - Chemistry and C hemistry - challengeOrdered By: Erica Richardson on 11-14-2022 Free T4 [Mass/Vol] 1.35 ng/dL 0.76-1.46 [facility] No Panel InformationOrdered By: Erica Richardson on 11-14-2022 Free Triiodothyronine (T3) pg/dL 2.2 pg/mL 2.18-3.98 [facility] Thyroid Stimulating Hormone (TSH) 0.75 uIU/mL 0.358-3.74 [facility] Absolute lymphocyte countOrd ered By: Dr. Richardson on 09-13-2022 Lymphocytes Auto (Unsp spec) [#/Vol] 1.36 10*3/uL 0.83-4.51 [facility] Basophil percentageOrdered B y: Dr. Richardson on 09-13-2022 Basophils/100 WBC (Bld) 1.0 % 0-1 [facility] Bilirubin [Mass/Vol] 0.50 mg/dL 0.20-1.00 [facility] Comment on above: For patients on eltr ombopag therapy, use of Dimension [place] TBIL is not recommended. Chloride [Moles/Vol] 101 mmol/L 98-107 [facility] Eosinophils/100 WBC (Bld) 5.7 % 0-5 [facility] Glucose [Mass/Vol] 94 mg/dL 74-106 [facility] Neutrophils (Bld) [#/Vol] 7.2 10*3/uL 2.0-7.7 [facility] Neutrophils/100 WBC (Bld) 70.2 % 47-70 [facility] Potassium [Moles/Vol] 4.4 mmol/L 3.5-5.1 [facility] Protein [Mass/Vol] 8.0 g/dL 6.4-8.2 [facility] Sodium [Moles/Vol] 137 mmol/L 136-145 [facility] WBC (Bld) [#/Vol] 10.3 10*3/uL 4.4-11.0 [facility] Blood erythrocytes count (nu mber/volume)Ordered By: Dr. Richardson on 09-13-2022 RBC (Bld) [#/Vol] 3.92 10*6/uL 4.2-5.4 [facility] Blood hemoglobin measurement (mass/volume)Ordered By: Dr. Richardson on 09-13-2022 Hemoglobin (Bld) [Mass/Vol] 12.5 g/dL 12.0-15.0 [facility] Blood lymphocytes/100 leukoc ytesOrdered By: Dr. Richardson on 09-13-2022 Lymphocytes/100 WBC (Bld) 13.2 % 19-41 [facility] Blood monocytes/100 leukocyt esOrdered By: Dr. Richardson on 09-13-2022 Monocytes/100 WBC (Bld) 9.5 % 0-10 [facility] Blood platelet mean volumeOr dered By: Dr. Richardson on 09-13-2022 Platelet mean volume (Bld) [Entitic vol] 11.6 fL 6.2-12.0 [facility] Determination of erythrocyte mean corpuscular volume (MCV)Ordered By: Dr. Richardson on 09-13-2022 MCV (RBC) [Entitic vol] 100.5 fL 81-99 [facility] Hematocrit Auto (Bld) [Volum e fraction]Ordered By: Dr. Richardson on 09-13-2022 Hematocrit (Bld) [Volume fraction] 39.4 % 37-47 [facility] Laboratory - Chemistry and C hemistry - challengeOrdered By: Dr. Richardson on 09-13-2022 ALP [Catalytic activity/Vol] 136 U/L 45-117 [facility] ALT [Catalytic activity/Vol] 23 U/L 13-56 [facility] CO2 [Moles/Vol] 28.0 mmol/L 21.0-32.0 [facility] Free T4 [Mass/Vol] 1.06 ng/dL 0.76-1.46 [facility] Globulin (S) [Mass/Vol] 4.2 g/dL 2.2-4.2 [facility] Urea nitrogen/Creatinine [Mass ratio] 32.9 mg/mg 10-20 [facility] Laboratory - Hematology and Cell countsOrdered By: Dr. Richardson on 09-13-2022 Erythrocyte distribution width (RBC) [Entitic vol] 48.6 fL 35.1-43.9 [facility] Erythrocyte distribution width (RBC) [Ratio] 13.1 % 11.6-14.6 [facility] Immature granulocytes/100 WBC (Bld) 0.400 % 0.0-0.9 [facility] Comment on above: IG% - Immature Granu locytes (promyelocytes, myelocytes and metamyelocytes) > 1% indicates that a LEFT SHIFT is Present. MCH (RBC) [Entitic mass] 31.9 pg 27.0-32.0 [facility] Nucleated RBC/100 WBC (Bld) [Ratio] 0 % 0-5 [facility] MCHC Auto (RBC) [Mass/Vol]Or dered By: Dr. Richardson on 09-13-2022 MCHC (RBC) [Mass/Vol] 31.7 g/dL 32-36 [facility] No Panel InformationOrdered By: Dr. Richardson on 09-13-2022 Estimated GFR (MDRD) Amer 111 mL/min >60 [facility] Comment on above: GFR Calc Estimated GFR (MDRD) Non-Af Amer 91 mL/min >60 [facility] Comment on above: Non- GFR Calc Free Triiodothyronine (T3) pg/dL 1.4 pg/mL 2.18-3.98 [facility] Thyroid Stimulating Hormone (TSH) 6.44 uIU/mL 0.358-3.74 [facility] Platelets bldOrdered By: Dr. Richardson on 09-13-2022 Platelets (Bld) [#/Vol] 335 10*3/uL 150-450 [facility] Serum or plasma albumin rajni urement (mass/volume)Ordered By: Dr. Richardson on 09-13-2022 Albumin [Mass/Vol] 3.8 g/dL 3.2-5.0 [facility] Serum or plasma albumin/glob ulin mass ratioOrdered By: Dr. Richardson on 09-13-2022 Albumin/Globulin [Mass ratio] 0.9 {ratio} 0.9-2.4 [facility] Serum or plasma calcium rajni urement (mass/volume)Ordered By: Dr. Richardson on 09-13-2022 Calcium [Mass/Vol] 8.3 mg/dL 8.5-10.1 [facility] Serum or plasma creatinine m easurement (mass/volume)Ordered By: Dr. Richardson on 09-13-2022 Creatinine [Mass/Vol] 0.67 mg/dL 0.55-1.02 [facility] Comment on above: The validity of the calculated GFR & GFRAA in patients over 70 years has not been determined. Clinical correlation is essential. Serum or plasma urea nitroge n measurement (mass/volume)Ordered By: Dr. Richardson on 09-13-2022 Urea nitrogen [Mass/Vol] 22 mg/dL 7-18 [facility] Serum or plasma uric acid me asurement (mass/volume)Ordered By: Dr. Richardson on 09-13-2022 Urate [Mass/Vol] 3.6 mg/dL 2.6-6.0 [facility] Comment on above: The drugs N-Acetylcy steine and Metamizole may falsely depress this assay. Thin prep Papanicolaou smear with manual screeningOrdered By: Dr. Richardson on 09-13-2022 Thin prep Papanicolaou smear with manual screening 20 U/L 15-37 [facility] Thin prep Papanicolaou smear with manual screening 8 5-15 [facility] Basophil percentageOrdered B y: Roberto Andre on 03-06-2022 Chloride [Moles/Vol] 102 mmol/L 98-107 [facility] Glucose [Mass/Vol] 90 mg/dL 74-106 [facility] Potassium [Moles/Vol] 4.0 mmol/L 3.5-5.1 [facility] Sodium [Moles/Vol] 137 mmol/L 136-145 [facility] WBC (Bld) [#/Vol] 5.7 10*3/uL 4.4-11.0 [facility] Blood erythrocytes count (nu mber/volume)Ordered By: Roberto Andre on 03-06-2022 RBC (Bld) [#/Vol] 4.05 10*6/uL 4.2-5.4 [facility] Blood hemoglobin measurement (mass/volume)Ordered By: Roberto Andre on 03-06-2022 Hemoglobin (Bld) [Mass/Vol] 12.0 g/dL 12.0-15.0 [facility] Blood platelet mean volumeOr dered By: Roberto Andre on 03-06-2022 Platelet mean volume (Bld) [Entitic vol] 12.7 fL 6.2-12.0 [facility] Determination of erythrocyte mean corpuscular volume (MCV)Ordered By: Roberto Andre on 03-06-2022 MCV (RBC) [Entitic vol] 91.9 fL 81-99 [facility] Hematocrit Auto (Bld) [Volum e fraction]Ordered By: Roberto Andre on 03-06-2022 Hematocrit (Bld) [Volume fraction] 37.2 % 37-47 [facility] Laboratory - Chemistry and C hemistry - challengeOrdered By: Roberto Andre on 03-06-2022 CO2 [Moles/Vol] 28.0 mmol/L 21.0-32.0 [facility] Urea nitrogen/Creatinine [Mass ratio] 15.9 mg/mg 10-20 [facility] Laboratory - Hematology and Cell countsOrdered By: Roberto Andre on 03-06-2022 Erythrocyte distribution width (RBC) [Entitic vol] 59.7 fL 35.1-43.9 [facility] Erythrocyte distribution width (RBC) [Ratio] 17.7 % 11.6-14.6 [facility] MCH (RBC) [Entitic mass] 29.6 pg 27.0-32.0 [facility] MCHC Auto (RBC) [Mass/Vol]Or dered By: Roberto Andre on 03-06-2022 MCHC (RBC) [Mass/Vol] 32.3 g/dL 32-36 [facility] No Panel InformationOrdered By: Roberto Andre on 03-06-2022 Estimated GFR (MDRD) Amer 134 mL/min >60 [facility] Comment on above: GFR Calc Estimated GFR (MDRD) Non-Af Amer 111 mL/min >60 [facility] Comment on above: Non- GFR Calc Platelets bldOrdered By: Wan Andre on 03-06-2022 Platelets (Bld) [#/Vol] 272 10*3/uL 150-450 [facility] Serum or plasma calcium rajni urement (mass/volume)Ordered By: Roberto Andre on 03-06-2022 Calcium [Mass/Vol] 9.0 mg/dL 8.5-10.1 [facility] Serum or plasma creatinine m easurement (mass/volume)Ordered By: Roberto Andre on 03-06-2022 Creatinine [Mass/Vol] 0.57 mg/dL 0.55-1.02 [facility] Comment on above: The validity of the calculated GFR & GFRAA in patients over 70 years has not been determined. Clinical correlation is essential. Serum or plasma urea nitroge n measurement (mass/volume)Ordered By: Roberto Andre on 03-06-2022 Urea nitrogen [Mass/Vol] 9 mg/dL 7-18 [facility] Thin prep Papanicolaou smear with manual screeningOrdered By: Roberto Andre on 03-06-2022 Thin prep Papanicolaou smear with manual screening 7 5-15 [facility] Basophil percentageOrdered B y: Roberto Andre on 02-27-2022 Chloride [Moles/Vol] 106 mmol/L 98-107 [facility] Glucose [Mass/Vol] 91 mg/dL 74-106 [facility] Potassium [Moles/Vol] 4.1 mmol/L 3.5-5.1 [facility] Sodium [Moles/Vol] 139 mmol/L 136-145 [facility] WBC (Bld) [#/Vol] 6.6 10*3/uL 4.4-11.0 [facility] Blood erythrocytes count (nu mber/volume)Ordered By: Roberto Andre on 02-27-2022 RBC (Bld) [#/Vol] 3.93 10*6/uL 4.2-5.4 [facility] Blood hemoglobin measurement (mass/volume)Ordered By: Roberto Andre on 02-27-2022 Hemoglobin (Bld) [Mass/Vol] 11.6 g/dL 12.0-15.0 [facility] Blood platelet mean volumeOr dered By: Roberto Andre on 02-27-2022 Platelet mean volume (Bld) [Entitic vol] 12.8 fL 6.2-12.0 [facility] Determination of erythrocyte mean corpuscular volume (MCV)Ordered By: Roberto Andre on 02-27-2022 MCV (RBC) [Entitic vol] 90.6 fL 81-99 [facility] Hematocrit Auto (Bld) [Volum e fraction]Ordered By: Roberto Andre on 02-27-2022 Hematocrit (Bld) [Volume fraction] 35.6 % 37-47 [facility] Laboratory - Chemistry and C hemistry - challengeOrdered By: Roberto Andre on 02-27-2022 CO2 [Moles/Vol] 28.0 mmol/L 21.0-32.0 [facility] Urea nitrogen/Creatinine [Mass ratio] 29.4 mg/mg 10-20 [facility] Laboratory - Hematology and Cell countsOrdered By: Roberto Andre on 02-27-2022 Erythrocyte distribution width (RBC) [Entitic vol] 63.4 fL 35.1-43.9 [facility] Erythrocyte distribution width (RBC) [Ratio] 19.1 % 11.6-14.6 [facility] MCH (RBC) [Entitic mass] 29.5 pg 27.0-32.0 [facility] MCHC Auto (RBC) [Mass/Vol]Or dered By: Roberto Andre on 02-27-2022 MCHC (RBC) [Mass/Vol] 32.6 g/dL 32-36 [facility] No Panel InformationOrdered By: Roberto Andre on 02-27-2022 Estimated GFR (MDRD) Amer 131 mL/min >60 [facility] Comment on above: GFR Calc Estimated GFR (MDRD) Non-Af Amer 108 mL/min >60 [facility] Comment on above: Non- GFR Calc Platelets bldOrdered By: Wan Andre on 02-27-2022 Platelets (Bld) [#/Vol] 275 10*3/uL 150-450 [facility] Serum or plasma calcium rajni urement (mass/volume)Ordered By: Roberto Andre on 02-27-2022 Calcium [Mass/Vol] 9.1 mg/dL 8.5-10.1 [facility] Serum or plasma creatinine m easurement (mass/volume)Ordered By: Roberto Andre on 02-27-2022 Creatinine [Mass/Vol] 0.58 mg/dL 0.55-1.02 [facility] Comment on above: The validity of the calculated GFR & GFRAA in patients over 70 years has not been determined. Clinical correlation is essential. Serum or plasma urea nitroge n measurement (mass/volume)Ordered By: Roberto Andre on 02-27-2022 Urea nitrogen [Mass/Vol] 17 mg/dL 7-18 [facility] Thin prep Papanicolaou smear with manual screeningOrdered By: Roberto Andre on 02-27-2022 Thin prep Papanicolaou smear with manual screening 5 5-15 [facility] Basophil percentageOrdered B y: Roberto Andre on 02-20-2022 Chloride [Moles/Vol] 100 mmol/L 98-107 [facility] Glucose [Mass/Vol] 89 mg/dL 74-106 [facility] Potassium [Moles/Vol] 3.9 mmol/L 3.5-5.1 [facility] Sodium [Moles/Vol] 136 mmol/L 136-145 [facility] WBC (Bld) [#/Vol] 6.6 10*3/uL 4.4-11.0 [facility] Blood erythrocytes count (nu mber/volume)Ordered By: Roberto Andre on 02-20-2022 RBC (Bld) [#/Vol] 4.21 10*6/uL 4.2-5.4 [facility] Blood hemoglobin measurement (mass/volume)Ordered By: Roberto Andre on 02-20-2022 Hemoglobin (Bld) [Mass/Vol] 12.3 g/dL 12.0-15.0 [facility] Blood manual differential co mment interpretation (narrative result)Ordered By: Roberto Andre on 02-20-2022 Manual differential comment Donnie (Bld) [Interp] See comment [facility] Comment on above: 1+ ANISOCYTOSIS Blood platelet mean volumeOr dered By: Roberto Andre on 02-20-2022 Platelet mean volume (Bld) [Entitic vol] 11.7 fL 6.2-12.0 [facility] Determination of erythrocyte mean corpuscular volume (MCV)Ordered By: Roberto Andre on 02-20-2022 MCV (RBC) [Entitic vol] 91.0 fL 81-99 [facility] Hematocrit Auto (Bld) [Volum e fraction]Ordered By: Roberto Andre on 02-20-2022 Hematocrit (Bld) [Volume fraction] 38.3 % 37-47 [facility] Laboratory - Chemistry and C hemistry - challengeOrdered By: Roberto Andre on 02-20-2022 CO2 [Moles/Vol] 29.0 mmol/L 21.0-32.0 [facility] Urea nitrogen/Creatinine [Mass ratio] 20.7 mg/mg 10-20 [facility] Laboratory - Hematology and Cell countsOrdered By: Roberto Andre on 02-20-2022 Erythrocyte distribution width (RBC) [Entitic vol] 66.1 fL 35.1-43.9 [facility] Erythrocyte distribution width (RBC) [Ratio] 19.8 % 11.6-14.6 [facility] MCH (RBC) [Entitic mass] 29.2 pg 27.0-32.0 [facility] MCHC Auto (RBC) [Mass/Vol]Or dered By: Roberto Andre on 02-20-2022 MCHC (RBC) [Mass/Vol] 32.1 g/dL 32-36 [facility] No Panel InformationOrdered By: Roberto Andre on 02-20-2022 Estimated GFR (MDRD) Amer 182 mL/min >60 [facility] Comment on above: GFR Calc Estimated GFR (MDRD) Non-Af Amer 150 mL/min >60 [facility] Comment on above: Non- GFR Calc Platelets bldOrdered By: Wan Andre on 02-20-2022 Platelets (Bld) [#/Vol] 325 10*3/uL 150-450 [facility] Serum or plasma calcium rajni urement (mass/volume)Ordered By: Roberto Andre on 02-20-2022 Calcium [Mass/Vol] 9.3 mg/dL 8.5-10.1 [facility] Serum or plasma creatinine m easurement (mass/volume)Ordered By: Roberto Andre on 02-20-2022 Creatinine [Mass/Vol] 0.44 mg/dL 0.55-1.02 [facility] Comment on above: The validity of the calculated GFR & GFRAA in patients over 70 years has not been determined. Clinical correlation is essential. Serum or plasma urea nitroge n measurement (mass/volume)Ordered By: Roberto Andre on 02-20-2022 Urea nitrogen [Mass/Vol] 9 mg/dL 7-18 [facility] Thin prep Papanicolaou smear with manual screeningOrdered By: Roberto Andre on 02-20-2022 Thin prep Papanicolaou smear with manual screening 7 5-15 [facility] Basophil percentageon 2021 Chloride [Moles/Vol] 106 mmol/L 98-107 [facility] Work Phone: Glucose [Mass/Vol] 78 mg/dL 74-106 [facility] Work Phone: Potassium [Moles/Vol] 3.8 mmol/L 3.5-5.1 [facility] Work Phone: Sodium [Moles/Vol] 140 mmol/L 136-145 [facility] Work Phone: WBC (Bld) [#/Vol] 5.2 10*3/uL 4.4-11.0 [facility] Work Phone: Blood erythrocytes count (nu mber/volume)on 02-13-2022 RBC (Bld) [#/Vol] 3.68 10*6/uL 4.2-5.4 [facility] Work [facility]: Blood hemoglobin measurement (mass/volume)on 02-13-2022 Hemoglobin (Bld) [Mass/Vol] 10.7 g/dL 12.0-15.0 [facility] Work Phone: [phone] Blood platelet mean volumeon 02-13-2022 Platelet mean volume (Bld) [Entitic vol] 12.6 fL 6.2-12.0 [facility] Work Phone: [phone] Determination of erythrocyte mean corpuscular volume (MCV)on 02-13-2022 MCV (RBC) [Entitic vol] 90.5 fL 81-99 [facility] Work Phone: [phone] Hematocrit Auto (Bld) [Volum e fraction]on 02-13-2022 Hematocrit (Bld) [Volume fraction] 33.3 % 37-47 [facility] Work Phone: Laboratory - Chemistry and C hemistry - challengeon 02-13-2022 CO2 [Moles/Vol] 32.0 mmol/L 21.0-32.0 [facility] Work Phone: Urea nitrogen/Creatinine [Mass ratio] 28.9 mg/mg 10-20 [facility] Work Phone: [phone] Laboratory - Hematology and Cell countson 02-13-2022 Erythrocyte distribution width (RBC) [Entitic vol] 67.1 fL 35.1-43.9 [facility] Work Phone: [phone] Erythrocyte distribution width (RBC) [Ratio] 20.0 % 11.6-14.6 [facility] Work Phone: [phone] MCH (RBC) [Entitic mass] 29.1 pg 27.0-32.0 [facility] Work Phone: [phone] MCHC Auto (RBC) [Mass/Vol]on 02-13-2022 MCHC (RBC) [Mass/Vol] 32.1 g/dL 32-36 [facility] Work Phone: No Panel Informationon 02-13 Estimated GFR (MDRD) Amer 175 mL/min >60 [facility] Work Phone: Comment on above: GFR Calc Estimated GFR (MDRD) Non-Af Amer 144 mL/min >60 [facility] Work Phone: Comment on above: Non- GFR Calc Platelets bldon 02-13-2022 Platelets (Bld) [#/Vol] 258 10*3/uL 150-450 [facility] Work Phone: Serum or plasma calcium rajni urement (mass/volume)on 02-13-2022 Calcium [Mass/Vol] 9.1 mg/dL 8.5-10.1 [facility] Work Phone: Serum or plasma creatinine m easurement (mass/volume)on 02-13-2022 Creatinine [Mass/Vol] 0.45 mg/dL 0.55-1.02 [facility] Work Phone: Comment on above: The validity of the calculated GFR & GFRAA in patients over 70 years has not been determined. Clinical correlation is essential. Serum or plasma urea nitroge n measurement (mass/volume)on 02-13-2022 Urea nitrogen [Mass/Vol] 13 mg/dL 7-18 [facility] Work Phone: Thin prep Papanicolaou smear with manual screeningon 02-13-2022 Thin prep Papanicolaou smear with manual screening 2 5-15 [facility] Work Phone: Basophil percentageon 2021 Chloride [Moles/Vol] 105 mmol/L 98-107 [facility] Work Phone: Glucose [Mass/Vol] 80 mg/dL 74-106 [facility] Work Phone: Potassium [Moles/Vol] 3.8 mmol/L 3.5-5.1 [facility] Work Phone: Sodium [Moles/Vol] 141 mmol/L 136-145 [facility] Work Phone: WBC (Bld) [#/Vol] 5.6 10*3/uL 4.4-11.0 [facility] Work Phone: Blood erythrocytes count (nu mber/volume)on 02-06-2022 RBC (Bld) [#/Vol] 3.76 10*6/uL 4.2-5.4 [facility] Work Phone: Blood hemoglobin measurement (mass/volume)on 02-06-2022 Hemoglobin (Bld) [Mass/Vol] 10.6 g/dL 12.0-15.0 [facility] Work Phone: Blood manual differential co mment interpretation (narrative result)on 02-06-2022 Manual differential comment Donnie (Bld) [Interp] COMMENT [facility] Work Phone: Comment on above: 1+ ANISO. Blood platelet mean volumeon 02-06-2022 Platelet mean volume (Bld) [Entitic vol] 12.8 fL 6.2-12.0 [facility] Work Phone: Determination of erythrocyte mean corpuscular volume (MCV)on 02-06-2022 MCV (RBC) [Entitic vol] 89.6 fL 81-99 [facility] Work Phone: [phone] Hematocrit Auto (Bld) [Volum e fraction]on 02-06-2022 Hematocrit (Bld) [Volume fraction] 33.7 % 37-47 [facility] Work Phone: [phone] Laboratory - Chemistry and C hemistry - challengeon 02-06-2022 CO2 [Moles/Vol] 28.0 mmol/L 21.0-32.0 [facility] Work Phone: Urea nitrogen/Creatinine [Mass ratio] 32.7 mg/mg 10-20 [facility] Work Phone: [phone] Laboratory - Hematology and Cell countson 02-06-2022 Erythrocyte distribution width (RBC) [Entitic vol] 66.9 fL 35.1-43.9 [facility] Work Phone: [phone] Erythrocyte distribution width (RBC) [Ratio] 20.2 % 11.6-14.6 [facility] Work Phone: MCH (RBC) [Entitic mass] 28.2 pg 27.0-32.0 [facility] Work Phone: MCHC Auto (RBC) [Mass/Vol]on 02-06-2022 MCHC (RBC) [Mass/Vol] 31.5 g/dL 32-36 [facility] Work Phone: No Panel Informationon 02-06 Estimated GFR (MDRD) Amer 158 mL/min >60 [facility] Work Phone: Comment on above: GFR Calc Estimated GFR (MDRD) Non-Af Amer 131 mL/min >60 [facility] Work Phone: Comment on above: Non- GFR Calc Platelets bldon 02-06-2022 Platelets (Bld) [#/Vol] 236 10*3/uL 150-450 [facility] Work Phone: Serum or plasma calcium rajni urement (mass/volume)on 02-06-2022 Calcium [Mass/Vol] 9.0 mg/dL 8.5-10.1 [facility] Work Phone: Serum or plasma creatinine m easurement (mass/volume)on 02-06-2022 Creatinine [Mass/Vol] 0.49 mg/dL 0.55-1.02 [facility] Work Phone: Comment on above: The validity of the calculated GFR & GFRAA in patients over 70 years has not been determined. Clinical correlation is essential. Serum or plasma urea nitroge n measurement (mass/volume)on 02-06-2022 Urea nitrogen [Mass/Vol] 16 mg/dL -18 [facility] Work Phone: [phone] Thin prep Papanicolaou smear with manual screeningon 02-06-2022 Thin prep Papanicolaou smear with manual screening 8 5-15 [facility] Work Phone: Basophil percentageon 2021 Chloride [Moles/Vol] 104 mmol/L 98-107 [facility] Work Phone: Glucose [Mass/Vol] 83 mg/dL 74-106 [facility] Work Phone: [phone] Potassium [Moles/Vol] 3.9 mmol/L 3.5-5.1 [facility] Work Phone: [phone] Sodium [Moles/Vol] 139 mmol/L 136-145 [facility] Work Phone: [phone] WBC (Bld) [#/Vol] 7.0 10*3/uL 4.4-11.0 [facility] Work Phone: [phone] Blood erythrocytes count (nu mber/volume)on 01-30-2022 RBC (Bld) [#/Vol] 4.34 10*6/uL 4.2-5.4 [facility] Work Phone: [phone] Blood hemoglobin measurement (mass/volume)on 01-30-2022 Hemoglobin (Bld) [Mass/Vol] 12.0 g/dL 12.0-15.0 [facility] Work Phone: [phone] Blood platelet mean volumeon 01-30-2022 Platelet mean volume (Bld) [Entitic vol] 13.4 fL 6.2-12.0 [facility] Work Phone: [phone] Determination of erythrocyte mean corpuscular volume (MCV)on 01-30-2022 MCV (RBC) [Entitic vol] 90.1 fL 81-99 [facility] Work Phone: [phone] Hematocrit Auto (Bld) [Volum e fraction]on 01-30-2022 Hematocrit (Bld) [Volume fraction] 39.1 % 37-47 [facility] Work Phone: [phone] Laboratory - Chemistry and C hemistry - challengeon 01-30-2022 CO2 [Moles/Vol] 28.0 mmol/L 21.0-32.0 [facility] Work Phone: [phone] Urea nitrogen/Creatinine [Mass ratio] 17.5 mg/mg 10-20 [facility] Work Phone: [phone] Laboratory - Hematology and Cell countson 01-30-2022 Erythrocyte distribution width (RBC) [Entitic vol] 66.9 fL 35.1-43.9 [facility] Work Phone: Erythrocyte distribution width (RBC) [Ratio] 20.3 % 11.6-14.6 [facility] Work Phone: MCH (RBC) [Entitic mass] 27.6 pg 27.0-32.0 [facility] Work Phone: MCHC Auto (RBC) [Mass/Vol]on 01-30-2022 MCHC (RBC) [Mass/Vol] 30.7 g/dL 32-36 [facility] Work Phone: No Panel Informationon 01-30 Estimated GFR (MDRD) Amer 133 mL/min >60 [facility] Work Phone: Comment on above: GFR Calc Estimated GFR (MDRD) Non-Af Amer 110 mL/min >60 [facility] Work Phone: Comment on above: Non- GFR Calc Platelets bldon 01-30-2022 Platelets (Bld) [#/Vol] 249 10*3/uL 150-450 [facility] Work Phone: Serum or plasma calcium rajni urement (mass/volume)on 01-30-2022 Calcium [Mass/Vol] 8.9 mg/dL 8.5-10.1 [facility] Work Phone: Serum or plasma creatinine m easurement (mass/volume)on 01-30-2022 Creatinine [Mass/Vol] 0.57 mg/dL 0.55-1.02 [facility] Work Phone: Comment on above: The validity of the calculated GFR & GFRAA in patients over 70 years has not been determined. Clinical correlation is essential. Serum or plasma urea nitroge n measurement (mass/volume)on 01-30-2022 Urea nitrogen [Mass/Vol] 10 mg/dL 7-18 [facility] Work Phone: Thin prep Papanicolaou smear with manual screeningon 01-30-2022 Thin prep Papanicolaou smear with manual screening 7 5-15 [facility] Work Phone: Basophil percentageon 2021 Chloride [Moles/Vol] 106 mmol/L 98-107 [facility] Work Phone: [phone] Glucose [Mass/Vol] 92 mg/dL 74-106 [facility] Work Phone: [phone] Potassium [Moles/Vol] 3.2 mmol/L 3.5-5.1 [facility] Work Phone: [phone] Sodium [Moles/Vol] 142 mmol/L 136-145 [facility] Work Phone: [phone] WBC (Bld) [#/Vol] 7.6 10*3/uL 4.4-11.0 [facility] Work Phone: [phone] Blood erythrocytes count (nu mber/volume)on 01-22-2022 RBC (Bld) [#/Vol] 4.15 10*6/uL 4.2-5.4 [facility] Work Phone: [phone] Blood hemoglobin measurement (mass/volume)on 01-22-2022 Hemoglobin (Bld) [Mass/Vol] 11.4 g/dL 12.0-15.0 [facility] Work Phone: [phone] Blood platelet mean volumeon 01-22-2022 Platelet mean volume (Bld) [Entitic vol] 12.8 fL 6.2-12.0 [facility] Work Phone: [phone] Determination of erythrocyte mean corpuscular volume (MCV)on 01-22-2022 MCV (RBC) [Entitic vol] 88.0 fL 81-99 [facility] Work Phone: [phone] Hematocrit Auto (Bld) [Volum e fraction]on 01-22-2022 Hematocrit (Bld) [Volume fraction] 36.5 % 37-47 [facility] Work Phone: [phone] Laboratory - Chemistry and C hemistry - challengeon 01-22-2022 CO2 [Moles/Vol] 26.0 mmol/L 21.0-32.0 [facility] Work Phone: [phone] Magnesium [Mass/Vol] 1.9 mg/dL 1.6-2.6 [facility] Work Phone: [phone] Urea nitrogen/Creatinine [Mass ratio] 24.1 mg/mg 10- [facility] Work Phone: [phone] Laboratory - Hematology and Cell countson 01-22-2022 Erythrocyte distribution width (RBC) [Entitic vol] 63.7 fL 35.1-43.9 [facility] Work Phone: [phone] Erythrocyte distribution width (RBC) [Ratio] 19.9 % 11.6-14.6 [facility] Work Phone: [phone] MCH (RBC) [Entitic mass] 27.5 pg 27.0-32.0 [facility] Work Phone: [phone] MCHC Auto (RBC) [Mass/Vol]on 01-22-2022 MCHC (RBC) [Mass/Vol] 31.2 g/dL 32-36 [facility] Work Phone: [phone] No Panel Informationon 01-22 Estimated GFR (MDRD) Amer 130 mL/min >60 [facility] Work Phone: [phone] Comment on above: GFR Calc Estimated GFR (MDRD) Non-Af Amer 107 mL/min >60 [facility] Work Phone: [phone] Comment on above: Non- GFR Calc Thyroid Stimulating Hormone (TSH) 0.57 uIU/mL 0.358-3.74 [facility] Work Phone: [phone] Vitamin D 25-Hydroxy 39.5 ng/mL [facility] Work Phone: [phone] Comment on above: Vitamin D 25(OH) Sta tus Range Deficiency <20 ng/mL (50nmol/L) Insufficiency 20 - 30 ng/mL (50 - 75 nmol/L) Sufficiency 30 - 100 ng/mL (75 - 250 nmol/L) Toxicity >100 ng/mL (>250 nmol/L) Platelets bldon 01-22-2022 Platelets (Bld) [#/Vol] 263 10*3/uL 150-450 [facility] Work Phone: Serum or plasma calcium rajni urement (mass/volume)on 01-22-2022 Calcium [Mass/Vol] 8.5 mg/dL 8.5-10.1 [facility] Work Phone: Serum or plasma creatinine m easurement (mass/volume)on 01-22-2022 Creatinine [Mass/Vol] 0.58 mg/dL 0.55-1.02 [facility] Work Phone: Comment on above: The validity of the calculated GFR & GFRAA in patients over 70 years has not been determined. Clinical correlation is essential. Serum or plasma urea nitroge n measurement (mass/volume)on 01-22-2022 Urea nitrogen [Mass/Vol] 14 mg/dL 7-18 [facility] Work Phone: Thin prep Papanicolaou smear with manual screeningon 01-22-2022 Thin prep Papanicolaou smear with manual screening 10 -15 [facility] Work Phone: Basophil percentageon 2021 Chloride [Moles/Vol] 104 mmol/L 98-107 [facility] Work Phone: Glucose [Mass/Vol] 89 mg/dL 74-106 [facility] Work Phone: [phone] Potassium [Moles/Vol] 3.8 mmol/L 3.5-5.1 [facility] Work Phone: [phone] Sodium [Moles/Vol] 139 mmol/L 136-145 [facility] Work Phone: [phone] WBC (Bld) [#/Vol] 6.8 10*3/uL 4.4-11.0 [facility] Work Phone: [phone] Blood erythrocytes count (nu mber/volume)on 01-16-2022 RBC (Bld) [#/Vol] 3.95 10*6/uL 4.2-5.4 [facility] Work Phone: [phone] Blood hemoglobin measurement (mass/volume)on 01-16-2022 Hemoglobin (Bld) [Mass/Vol] 10.9 g/dL 12.0-15.0 [facility] Work Phone: [phone] Blood platelet mean volumeon 01-16-2022 Platelet mean volume (Bld) [Entitic vol] 12.9 fL 6.2-12.0 [facility] Work Phone: [phone] Determination of erythrocyte mean corpuscular volume (MCV)on 01-16-2022 MCV (RBC) [Entitic vol] 87.3 fL 81-99 [facility] Work Phone: [phone] Hematocrit Auto (Bld) [Volum e fraction]on 01-16-2022 Hematocrit (Bld) [Volume fraction] 34.5 % 37-47 [facility] Work Phone: [phone] Laboratory - Chemistry and C hemistry - challengeon 01-16-2022 CO2 [Moles/Vol] 28.0 mmol/L 21.0-32.0 [facility] Work Phone: [phone] Urea nitrogen/Creatinine [Mass ratio] 22.2 mg/mg 10-20 [facility] Work Phone: [phone] Laboratory - Hematology and Cell countson 01-16-2022 Erythrocyte distribution width (RBC) [Entitic vol] 60.9 fL 35.1-43.9 [facility] Work Phone: [phone] Erythrocyte distribution width (RBC) [Ratio] 18.9 % 11.6-14.6 [facility] Work Phone: [phone] MCH (RBC) [Entitic mass] 27.6 pg 27.0-32.0 [facility] Work Phone: [phone] MCHC Auto (RBC) [Mass/Vol]on 01-16-2022 MCHC (RBC) [Mass/Vol] 31.6 g/dL 32-36 [facility] Work Phone: [phone] No Panel Informationon 01-16 Estimated GFR (MDRD) Amer 142 mL/min >60 [facility] Work Phone: [phone] Comment on above: GFR Calc Estimated GFR (MDRD) Non-Af Amer 117 mL/min >60 [facility] Work Phone: Comment on above: Non- GFR Calc Platelets bldon 01-16-2022 Platelets (Bld) [#/Vol] 286 10*3/uL 150-450 [facility] Work Phone: Serum or plasma calcium rajni urement (mass/volume)on 01-16-2022 Calcium [Mass/Vol] 8.3 mg/dL 8.5-10.1 [facility] Work Phone: Serum or plasma creatinine m easurement (mass/volume)on 01-16-2022 Creatinine [Mass/Vol] 0.54 mg/dL 0.55-1.02 [facility] Work Phone: Comment on above: The validity of the calculated GFR & GFRAA in patients over 70 years has not been determined. Clinical correlation is essential. Serum or plasma urea nitroge n measurement (mass/volume)on 01-16-2022 Urea nitrogen [Mass/Vol] 12 mg/dL 7-18 [facility] Work Phone: Thin prep Papanicolaou smear with manual screeningon 01-16-2022 Thin prep Papanicolaou smear with manual screening 7 5-15 [facility] Work Phone: Basophil percentageon 2021 Chloride [Moles/Vol] 106 mmol/L 98-107 [facility] Work Phone: Glucose [Mass/Vol] 91 mg/dL 74-106 [facility] Work Phone: Potassium [Moles/Vol] 4.3 mmol/L 3.5-5.1 [facility] Work Phone: Sodium [Moles/Vol] 140 mmol/L 136-145 [facility] Work Phone: WBC (Bld) [#/Vol] 14.6 10*3/uL 4.4-11.0 [facility] Work Phone: Blood erythrocytes count (nu mber/volume)on 01-09-2022 RBC (Bld) [#/Vol] 3.86 10*6/uL 4.2-5.4 [facility] Work Phone: Blood hemoglobin measurement (mass/volume)on 01-09-2022 Hemoglobin (Bld) [Mass/Vol] 10.6 g/dL 12.0-15.0 [facility] Work Phone: Blood platelet mean volumeon 01-09-2022 Platelet mean volume (Bld) [Entitic vol] 13.1 fL 6.2-12.0 [facility] Work Phone: CNOVon 01-09-2022 CNOV Normal [facility] Determination of erythrocyte mean corpuscular volume (MCV)on 01-09-2022 MCV (RBC) [Entitic vol] 88.1 fL 81-99 [facility] Work Phone: [phone] Hematocrit Auto (Bld) [Volum e fraction]on 01-09-2022 Hematocrit (Bld) [Volume fraction] 34.0 % 37-47 [facility] Work Phone: Laboratory - Chemistry and C hemistry - challengeon 01-09-2022 CO2 [Moles/Vol] 28.0 mmol/L 21.0-32.0 [facility] Work Phone: Urea nitrogen/Creatinine [Mass ratio] 24.5 mg/mg - [facility] Work Phone: [phone] Laboratory - Hematology and Cell countson 01-09-2022 Erythrocyte distribution width (RBC) [Entitic vol] 59.2 fL 35.1-43.9 [facility] Work Phone: [phone] Erythrocyte distribution width (RBC) [Ratio] 18.4 % 11.6-14.6 [facility] Work Phone: [phone] MCH (RBC) [Entitic mass] 27.5 pg 27.0-32.0 [facility] Work Phone: [phone] MCHC Auto (RBC) [Mass/Vol]on 01-09-2022 MCHC (RBC) [Mass/Vol] 31.2 g/dL 32-36 [facility] Work Phone: No Panel Informationon 01-09 Estimated GFR (MDRD) Amer 144 mL/min >60 [facility] Work Phone: Comment on above: GFR Calc Estimated GFR (MDRD) Non-Af Amer 119 mL/min >60 [facility] Work Phone: Comment on above: Non- GFR Calc Platelets bldon 01-09-2022 Platelets (Bld) [#/Vol] 220 10*3/uL 150-450 [facility] Work Phone: Serum or plasma calcium rajni urement (mass/volume)on 01-09-2022 Calcium [Mass/Vol] 8.6 mg/dL 8.5-10.1 [facility] Work Phone: Serum or plasma creatinine m easurement (mass/volume)on 01-09-2022 Creatinine [Mass/Vol] 0.53 mg/dL 0.55-1.02 [facility] Work Phone: Comment on above: The validity of the calculated GFR & GFRAA in patients over 70 years has not been determined. Clinical correlation is essential. Serum or plasma urea nitroge n measurement (mass/volume)on 01-09-2022 Urea nitrogen [Mass/Vol] 13 mg/dL 7-18 [facility] Work Phone: Thin prep Papanicolaou smear with manual screeningon 01-09-2022 Thin prep Papanicolaou smear with manual screening 6 5-15 [facility] Work Phone: [phone] MRI BRAIN WO/W IVCONon 01-04 [facility] Basophil percentageon 2021 Chloride [Moles/Vol] 107 mmol/L 98-107 [facility] Work Phone: [phone] Glucose [Mass/Vol] 89 mg/dL 74-106 [facility] Work Phone: [phone] Potassium [Moles/Vol] 4.0 mmol/L 3.5-5.1 [facility] Work Phone: [phone] Sodium [Moles/Vol] 141 mmol/L 136-145 [facility] Work Phone: [phone] WBC (Bld) [#/Vol] 6.8 10*3/uL 4.4-11.0 [facility] Work Phone: Blood erythrocytes count (nu mber/volume)on 01-02-2022 RBC (Bld) [#/Vol] 4.07 10*6/uL 4.2-5.4 [facility] Work Phone: Blood hemoglobin measurement (mass/volume)on 01-02-2022 Hemoglobin (Bld) [Mass/Vol] 11.5 g/dL 12.0-15.0 [facility] Work Phone: [phone] Blood platelet mean volumeon 01-02-2022 Platelet mean volume (Bld) [Entitic vol] 13.0 fL 6.2-12.0 [facility] Work Phone: Determination of erythrocyte mean corpuscular volume (MCV)on 01-02-2022 MCV (RBC) [Entitic vol] 90.4 fL 81-99 [facility] Work Phone: [phone] Hematocrit Auto (Bld) [Volum e fraction]on 01-02-2022 Hematocrit (Bld) [Volume fraction] 36.8 % 37-47 [facility] Work Phone: Laboratory - Chemistry and C hemistry - challengeon 01-02-2022 CO2 [Moles/Vol] 27.0 mmol/L 21.0-32.0 [facility] Work Phone: Urea nitrogen/Creatinine [Mass ratio] 15.7 mg/mg 10-20 [facility] Work Phone: [phone] Laboratory - Hematology and Cell countson 01-02-2022 Erythrocyte distribution width (RBC) [Entitic vol] 57.1 fL 35.1-43.9 [facility] Work Phone: [phone] Erythrocyte distribution width (RBC) [Ratio] 17.2 % 11.6-14.6 [facility] Work Phone: [phone] MCH (RBC) [Entitic mass] 28.3 pg 27.0-32.0 [facility] Work Phone: MCHC Auto (RBC) [Mass/Vol]on 01-02-2022 MCHC (RBC) [Mass/Vol] 31.3 g/dL 32-36 [facility] Work Phone: No Panel Informationon 01-02 Estimated GFR (MDRD) Amer 132 mL/min >60 [facility] Work Phone: Comment on above: GFR Calc Estimated GFR (MDRD) Non-Af Amer 109 mL/min >60 [facility] Work Phone: Comment on above: Non- GFR Calc Platelets bldon 01-02-2022 Platelets (Bld) [#/Vol] 274 10*3/uL 150-450 [facility] Work Phone: Serum or plasma calcium rajni urement (mass/volume)on 01-02-2022 Calcium [Mass/Vol] 9.7 mg/dL 8.5-10.1 [facility] Work Phone: Serum or plasma creatinine m easurement (mass/volume)on 01-02-2022 Creatinine [Mass/Vol] 0.58 mg/dL 0.55-1.02 [facility] Work Phone: Comment on above: The validity of the calculated GFR & GFRAA in patients over 70 years has not been determined. Clinical correlation is essential. Serum or plasma urea nitroge n measurement (mass/volume)on 01-02-2022 Urea nitrogen [Mass/Vol] 9 mg/dL 7-18 [facility] Work Phone: Thin prep Papanicolaou smear with manual screeningon 01-02-2022 Thin prep Papanicolaou smear with manual screening 7 5-15 [facility] Work Phone: Basophil percentageon 2021 Chloride [Moles/Vol] 104 mmol/L 98-107 [facility] Work Phone: Glucose [Mass/Vol] 77 mg/dL 74-106 [facility] Work Phone: [phone] Potassium [Moles/Vol] 4.1 mmol/L 3.5-5.1 [facility] Work Phone: [phone] Sodium [Moles/Vol] 140 mmol/L 136-145 [facility]: [phone] WBC (Bld) [#/Vol] 7.0 10*3/uL 4.4-11.0 [facility] Work Phone: [phone] Blood erythrocytes count (nu mber/volume)on 12-26-2021 RBC (Bld) [#/Vol] 4.18 10*6/uL 4.2-5.4 [facility]: [phone] Blood hemoglobin measurement (mass/volume)on 12-26-2021 Hemoglobin (Bld) [Mass/Vol] 12.5 g/dL 12.0-15.0 [facility] Work Phone: [phone] Blood platelet mean volumeon 12-26-2021 Platelet mean volume (Bld) [Entitic vol] 12.1 fL 6.2-12.0 [facility] Work Phone: [phone] Determination of erythrocyte mean corpuscular volume (MCV)on 12-26-2021 MCV (RBC) [Entitic vol] 96.9 fL 81-99 [facility] Work Phone: [phone] Hematocrit Auto (Bld) [Volum e fraction]on 12-26-2021 Hematocrit (Bld) [Volume fraction] 40.5 % 37-47 [facility] Work Phone: [phone] Laboratory - Chemistry and C hemistry - challengeon 12-26-2021 CO2 [Moles/Vol] 27.0 mmol/L 21.0-32.0 [facility] Work Phone: [phone] Urea nitrogen/Creatinine [Mass ratio] 18.7 mg/mg 10-20 [facility] Work Phone: [phone] Laboratory - Hematology and Cell countson 12-26-2021 Erythrocyte distribution width (RBC) [Entitic vol] 58.4 fL 35.1-43.9 [facility] Work Phone: Erythrocyte distribution width (RBC) [Ratio] 18.4 % 11.6-14.6 [facility] Work Phone: MCH (RBC) [Entitic mass] 29.9 pg 27.0-32.0 [facility] Work Phone: MCHC Auto (RBC) [Mass/Vol]on 12-26-2021 MCHC (RBC) [Mass/Vol] 30.9 g/dL 32-36 [facility] Work Phone: No Panel Informationon 12-26 Estimated GFR (MDRD) Amer 143 mL/min >60 [facility] Work Phone: Comment on above: GFR Calc Estimated GFR (MDRD) Non-Af Amer 118 mL/min >60 [facility] Work Phone: Comment on above: Non- GFR Calc Platelets bldon 12-26-2021 Platelets (Bld) [#/Vol] 286 10*3/uL 150-450 [facility] Work Phone: Serum or plasma calcium rajni urement (mass/volume)on 12-26-2021 Calcium [Mass/Vol] 9.8 mg/dL 8.5-10.1 [facility] Work Phone: Serum or plasma creatinine m easurement (mass/volume)on 12-26-2021 Creatinine [Mass/Vol] 0.54 mg/dL 0.55-1.02 [facility] Work Phone: Comment on above: The validity of the calculated GFR & GFRAA in patients over 70 years has not been determined. Clinical correlation is essential. Serum or plasma urea nitroge n measurement (mass/volume)on 12-26-2021 Urea nitrogen [Mass/Vol] 10 mg/dL 7-18 [facility] Work Phone: [phone] Thin prep Papanicolaou smear with manual screeningon 12-26-2021 Thin prep Papanicolaou smear with manual screening 9 5-15 [facility] Work Phone: Basophil percentageon 2021 Chloride [Moles/Vol] 108 mmol/L 98-[address] [facility] [facility] Work Phone: [phone] Glucose [Mass/Vol] 91 mg/dL 74-106 [facility] Work Phone: [phone] Potassium [Moles/Vol] 3.5 mmol/L 3.5-5.1 [facility] Work Phone: [phone] Sodium [Moles/Vol] 142 mmol/L 136-145 [facility] Work Phone: [phone] WBC (Bld) [#/Vol] 7.1 10*3/uL 4.4-11.0 [facility] Work Phone: [phone] Blood erythrocytes count (nu mber/volume)on 12-20-2021 RBC (Bld) [#/Vol] 3.81 10*6/uL 4.2-5.4 [facility] Work Phone: [phone] Blood hemoglobin measurement (mass/volume)on 12-20-2021 Hemoglobin (Bld) [Mass/Vol] 10.6 g/dL 12.0-15.0 [facility] Work Phone: [phone] Blood platelet mean volumeon 12-20-2021 Platelet mean volume (Bld) [Entitic vol] 13.0 fL 6.2-12.0 [facility] Work Phone: [phone] Determination of erythrocyte mean corpuscular volume (MCV)on 12-20-2021 MCV (RBC) [Entitic vol] 89.0 fL 81-99 [facility] Work Phone: [phone] Hematocrit Auto (Bld) [Volum e fraction]on 12-20-2021 Hematocrit (Bld) [Volume fraction] 33.9 % 37-47 [facility] Work Phone: [phone] Laboratory - Chemistry and C hemistry - challengeon 12-20-2021 CO2 [Moles/Vol] 27.0 mmol/L 21.0-32.0 [facility] Work Phone: [phone] Urea nitrogen/Creatinine [Mass ratio] 19.1 mg/mg 10-20 [facility] Work Phone: [phone] Laboratory - Hematology and Cell countson 12-20-2021 Erythrocyte distribution width (RBC) [Entitic vol] 51.5 fL 35.1-43.9 [facility] Work Phone: [phone] Erythrocyte distribution width (RBC) [Ratio] 15.8 % 11.6-14.6 [facility] Work Phone: [phone] MCH (RBC) [Entitic mass] 27.8 pg 27.0-32.0 [facility] Work Phone: [phone] MCHC Auto (RBC) [Mass/Vol]on 12-20-2021 MCHC (RBC) [Mass/Vol] 31.3 g/dL 32-36 [facility] Work Phone: [phone] No Panel Informationon 12-20 Estimated GFR (MDRD) Amer 132 mL/min >60 [facility] Work Phone: [phone] Comment on above: GFR Calc Estimated GFR (MDRD) Non-Af Amer 109 mL/min >60 [facility] Work Phone: [phone] Comment on above: Non- GFR Calc Platelets bldon 12-20-2021 Platelets (Bld) [#/Vol] 286 10*3/uL 150-450 [facility] Work Phone: [phone] Serum or plasma calcium rajni urement (mass/volume)on 12-20-2021 Calcium [Mass/Vol] 8.9 mg/dL 8.5-10.1 [facility] Work Phone: [phone] Serum or plasma creatinine m easurement (mass/volume)on 12-20-2021 Creatinine [Mass/Vol] 0.58 mg/dL 0.55-1.02 [facility] Work Phone: [phone] Comment on above: The validity of the calculated GFR & GFRAA in patients over 70 years has not been determined. Clinical correlation is essential. Serum or plasma urea nitroge n measurement (mass/volume)on 12-20-2021 Urea nitrogen [Mass/Vol] 11 mg/dL 7-18 [facility] Work Phone: Thin prep Papanicolaou smear with manual screeningon 12-20-2021 Thin prep Papanicolaou smear with manual screening 7 5-15 [facility] Work Phone: Basophil percentageon 2021 Basophil percentage 10-25 SEEN /hpf 0-5 [facility] Work Phone: Bilirubin Test strip Ql (U)o n 12-18-2021 Bilirubin Ql (U) Negative Negative [facility] Work Phone: Ketones Test strip Ql (U)on 12-18-2021 Ketones Ql (U) Negative Negative [facility] Work Phone: Mucus LM Ql (Urine sed)on Mucus Ql (Urine sed) 0 SEEN /hpf [facility] Work Phone: Nitrite Test strip Ql (U)on 12-18-2021 Nitrite Ql (U) Negative Negative [facility] Work Phone: Protein Test strip Ql (U)on 12-18-2021 Protein Ql (U) Negative Negative [facility] Work Phone: Squamous epithelial cells de tection in urine sediment by light microscopyon 12-18-2021 Epithelial cells.squamous LM Ql (Urine sed) 0 SEEN /hpf 5-10 [facility] Work Phone: Urine blood detectionon 11-21 RBC Ql (U) 10 /ul Negative [facility] Work Phone: RBC Ql (U) 0 SEEN /hpf 0-5 [facility] Work Phone: Urine clarityon 12-18-2021 Clarity (U) Clear Clear [facility] Work Phone: Urine color determinationon 12-18-2021 Color (U) Yellow Yellow [facility] Work Phone: Urine glucose detectionon Glucose Ql (U) Normal mg/dl Normal [facility] Work Phone: Urine leukocyte esterase det ection by dipstickon 12-18-2021 Leukocyte esterase Test strip Ql (U) 500 /ul Negative [facility] Work Phone: [phone] Urine pHon 12-18-2021 pH (U) 6.0 [pH] 5.0 - 8.0 [facility] Work Phone: [phone] Urine sediment bacteria coun t by microscopy (number/high power field)on 12-18-2021 Bacteria LM.HPF (Urine sed) [#/Area] 2 /[HPF] None Seen [facility] Work Phone: [phone] Urine specific gravity measu rementon 12-18-2021 Specific gravity (U) [Rel density] 1.020 1.002-1.030 [facility] Work Phone: [phone] Urobilinogen Auto test strip Ql (U)on 12-18-2021 Urobilinogen Ql (U) Normal mg/dl Normal [facility] Work Phone: Basophil percentageon 2021 Chloride [Moles/Vol] 106 mmol/L 98-107 [facility] Work Phone: Glucose [Mass/Vol] 85 mg/dL 74-106 [facility] Work Phone: [phone] Potassium [Moles/Vol] 3.5 mmol/L 3.5-5.1 [facility] Work Phone: [phone] Sodium [Moles/Vol] 140 mmol/L 136-145 [facility] Work Phone: [phone] WBC (Bld) [#/Vol] 8.8 10*3/uL 4.4-11.0 [facility] Work Phone: [phone] Blood erythrocytes count (nu mber/volume)on 12-12-2021 RBC (Bld) [#/Vol] 4.43 10*6/uL 4.2-5.4 [facility] Work Phone: Blood hemoglobin measurement (mass/volume)on 12-12-2021 Hemoglobin (Bld) [Mass/Vol] 12.3 g/dL 12.0-15.0 [facility] Work Phone: [phone] Blood platelet mean volumeon 12-12-2021 Platelet mean volume (Bld) [Entitic vol] 12.8 fL 6.2-12.0 [facility] Work Phone: [phone] Determination of erythrocyte mean corpuscular volume (MCV)on 12-12-2021 MCV (RBC) [Entitic vol] 87.6 fL 81-99 [facility] Work Phone: [phone] Hematocrit Auto (Bld) [Volum e fraction]on 12-12-2021 Hematocrit (Bld) [Volume fraction] 38.8 % 37-47 [facility] Work Phone: [phone] Laboratory - Chemistry and C hemistry - challengeon 12-12-2021 CO2 [Moles/Vol] 27.0 mmol/L 21.0-32.0 [facility] Work Phone: [phone] Urea nitrogen/Creatinine [Mass ratio] 18.6 mg/mg 10-20 [facility] Work Phone: [phone] Laboratory - Hematology and Cell countson 12-12-2021 Erythrocyte distribution width (RBC) [Entitic vol] 48.2 fL 35.1-43.9 [facility] Work Phone: [phone] Erythrocyte distribution width (RBC) [Ratio] 14.9 % 11.6-14.6 [facility] Work Phone: [phone] MCH (RBC) [Entitic mass] 27.8 pg 27.0-32.0 [facility] Work Phone: [phone] MCHC Auto (RBC) [Mass/Vol]on 12-12-2021 MCHC (RBC) [Mass/Vol] 31.7 g/dL 32-36 [facility] Work Phone: [phone] No Panel Informationon 12-12 Estimated GFR (MDRD) Amer 142 mL/min >60 [facility] Work Phone: [phone] Comment on above: GFR Calc Estimated GFR (MDRD) Non-Af Amer 117 mL/min >60 [facility] Work Phone: [phone] Comment on above: Non- GFR Calc Platelets bldon 12-12-2021 Platelets (Bld) [#/Vol] 354 10*3/uL 150-450 [facility] Work Phone: [phone] Serum or plasma calcium rajni urement (mass/volume)on 12-12-2021 Calcium [Mass/Vol] 9.8 mg/dL 8.5-10.1 [facility] Work Phone: [phone] Serum or plasma creatinine m easurement (mass/volume)on 12-12-2021 Creatinine [Mass/Vol] 0.54 mg/dL 0.55-1.02 [facility] Work Phone: Comment on above: The validity of the calculated GFR & GFRAA in patients over 70 years has not been determined. Clinical correlation is essential. Serum or plasma urea nitroge n measurement (mass/volume)on 12-12-2021 Urea nitrogen [Mass/Vol] 10 mg/dL 7-18 [facility] Work Phone: Thin prep Papanicolaou smear with manual screeningon 12-12-2021 Thin prep Papanicolaou smear with manual screening 7 5-15 [facility] Work Phone: Basophil percentageon 2021 Chloride [Moles/Vol] 104 mmol/L 98-107 [facility] Work Phone: [phone] Glucose [Mass/Vol] 100 mg/dL 74-106 [facility] Work Phone: Comment on above: Fasting Glucose resu lt from 100 to 125 mg/dL suggests IMPAIRED HOMEOSTASIS per A.D.A. criteria. Potassium [Moles/Vol] 3.8 mmol/L 3.5-5.1 [facility] Work Phone: [phone] Sodium [Moles/Vol] 138 mmol/L 136-145 [facility] Work Phone: [phone] WBC (Bld) [#/Vol] 10.0 10*3/uL 4.4-11.0 [facility] Work Phone: [phone] Blood erythrocytes count (nu mber/volume)on 08-16-2022 RBC (Bld) [#/Vol] 3.74 10*6/uL 4.2-5.4 [facility] Work Phone: Blood hemoglobin measurement (mass/volume)on 12-05-2021 Hemoglobin (Bld) [Mass/Vol] 10.8 g/dL 12.0-15.0 [facility] Work Phone: [phone] Blood platelet mean volumeon 12-05-2021 Platelet mean volume (Bld) [Entitic vol] 12.0 fL 6.2-12.0 [facility] Work Phone: [phone] Determination of erythrocyte mean corpuscular volume (MCV)on 12-05-2021 MCV (RBC) [Entitic vol] 90.1 fL 81-99 [facility] Work Phone: [phone] Hematocrit Auto (Bld) [Volum e fraction]on 12-05-2021 Hematocrit (Bld) [Volume fraction] 33.7 % 37-47 [facility] Work Phone: Laboratory - Chemistry and C hemistry - challengeon 12-05-2021 CO2 [Moles/Vol] 26.0 mmol/L 21.0-32.0 [facility] Work Phone: [phone] Urea nitrogen/Creatinine [Mass ratio] 20.2 mg/mg 10-20 [facility] Work Phone: [phone] Laboratory - Hematology and Cell countson 12-05-2021 Erythrocyte distribution width (RBC) [Entitic vol] 48.7 fL 35.1-43.9 [facility] Work Phone: [phone] Erythrocyte distribution width (RBC) [Ratio] 14.6 % 11.6-14.6 [facility] Work Phone: [phone] MCH (RBC) [Entitic mass] 28.9 pg 27.0-32.0 [facility] Work Phone: [phone] MCHC Auto (RBC) [Mass/Vol]on 12-05-2021 MCHC (RBC) [Mass/Vol] 32.0 g/dL 32-36 [facility] Work Phone: No Panel Informationon 12-05 Estimated GFR (MDRD) Amer 157 mL/min >60 [facility] Work Phone: Comment on above: GFR Calc Estimated GFR (MDRD) Non-Af Amer 130 mL/min >60 [facility] Work Phone: Comment on above: Non- GFR Calc Platelets bldon 12-05-2021 Platelets (Bld) [#/Vol] 360 10*3/uL 150-450 [facility] Work Phone: Serum or plasma calcium rajni urement (mass/volume)on 12-05-2021 Calcium [Mass/Vol] 9.9 mg/dL 8.5-10.1 [facility] Work Phone: Serum or plasma creatinine m easurement (mass/volume)on 12-05-2021 Creatinine [Mass/Vol] 0.49 mg/dL 0.55-1.02 [facility] Work Phone: Comment on above: The validity of the calculated GFR & GFRAA in patients over 70 years has not been determined. Clinical correlation is essential. Serum or plasma urea nitroge n measurement (mass/volume)on 12-05-2021 Urea nitrogen [Mass/Vol] 10 mg/dL 7-18 [facility] Work Phone: Thin prep Papanicolaou smear with manual screeningon 12-05-2021 Thin prep Papanicolaou smear with manual screening 8 5-15 [facility] Work Phone: Bilirubin Test strip Ql (U)o n 12-03-2021 Bilirubin Ql (U) Negative Negative [facility] Work Phone: [phone] Ketones Test strip Ql (U)on 12-03-2021 Ketones Ql (U) 5 mg/dl Negative [facility] Work Phone: [phone] Nitrite Test strip Ql (U)on 12-03-2021 Nitrite Ql (U) Positive Negative [facility] Work Phone: [phone] Protein Test strip Ql (U)on 12-03-2021 Protein Ql (U) 30 mg/dl Negative [facility] Work Phone: Urine blood detectionon 11-20 RBC Ql (U) 50 /ul Negative [facility] Work Phone: Urine clarityon 12-03-2021 Clarity (U) Cloudy Clear [facility] Work Phone: Urine color determinationon 12-03-2021 Color (U) Straw Yellow [facility] Work Phone: Urine glucose detectionon Glucose Ql (U) Normal mg/dl Normal [facility] Work Phone: Urine leukocyte esterase det ection by dipstickon 12-03-2021 Leukocyte esterase Test strip Ql (U) 500 /ul Negative [facility] Work Phone: Urine pHon 12-03-2021 pH (U) 6.0 [pH] 5.0 - 8.0 [facility] Work Phone: Urine specific gravity measu rementon 12-03-2021 Specific gravity (U) [Rel density] 1.010 1.002-1.030 [facility] Work Phone: Urobilinogen Auto test strip Ql (U)on 12-03-2021 Urobilinogen Ql (U) Normal mg/dl Normal [facility] Work Phone: Basophil percentageon 2021 Chloride [Moles/Vol] 101 mmol/L 98-107 [facility] Work Phone: Glucose [Mass/Vol] 107 mg/dL 74-106 [facility] Work Phone: Comment on above: Fasting Glucose resu lt from 100 to 125 mg/dL suggests IMPAIRED HOMEOSTASIS per A.D.A. criteria. Potassium [Moles/Vol] 3.6 mmol/L 3.5-5.1 [facility] Work Phone: Sodium [Moles/Vol] 136 mmol/L 136-145 [facility] Work Phone: Laboratory - Chemistry and C hemistry - challengeon 12-01-2021 CO2 [Moles/Vol] 29.0 mmol/L 21.0-32.0 [facility] Work Phone: Urea nitrogen/Creatinine [Mass ratio] 24.2 mg/mg 10-20 [facility] Work Phone: No Panel Informationon 12-01 Estimated GFR (MDRD) Amer 249 mL/min >60 [facility] Work Phone: Comment on above: GFR Calc Estimated GFR (MDRD) Non-Af Amer 206 mL/min >60 [facility] Work Phone: Comment on above: Non- GFR Calc Serum or plasma calcium rajni urement (mass/volume)on 12-01-2021 Calcium [Mass/Vol] 9.0 mg/dL 8.5-10.1 [facility] Work Phone: Serum or plasma creatinine m easurement (mass/volume)on 12-01-2021 Creatinine [Mass/Vol] 0.33 mg/dL 0.55-1.02 [facility] Work Phone: Comment on above: The validity of the calculated GFR & GFRAA in patients over 70 years has not been determined. Clinical correlation is essential. Serum or plasma urea nitroge n measurement (mass/volume)on 12-01-2021 Urea nitrogen [Mass/Vol] 8 mg/dL 7-18 [facility] Work Phone: Thin prep Papanicolaou smear with manual screeningon 12-01-2021 Thin prep Papanicolaou smear with manual screening 6 5-15 [facility] Work Phone: Basophil percentageon 2021 Chloride [Moles/Vol] 100 mmol/L 98-107 [facility] Work Phone: Glucose [Mass/Vol] 81 mg/dL 74-106 [facility] Work Phone: Potassium [Moles/Vol] 2.7 mmol/L 3.5-5.1 [facility] Work Phone: Comment on above: Critical Result(s) C alled at: 09:58:37 11/28/2021 by: Rosaura May to Christina. Results read back by same. Sodium [Moles/Vol] 134 mmol/L 136-145 [facility] Work Phone: WBC (Bld) [#/Vol] 9.7 10*3/uL 4.4-11.0 [facility] Work Phone: [phone] Blood erythrocytes count (nu mber/volume)on 11-28-2021 RBC (Bld) [#/Vol] 3.97 10*6/uL 4.2-5.4 [facility] Work Phone: [phone] Blood hemoglobin measurement (mass/volume)on 11-28-2021 Hemoglobin (Bld) [Mass/Vol] 11.4 g/dL 12.0-15.0 [facility] Work Phone: [phone] Blood platelet mean volumeon 11-28-2021 Platelet mean volume (Bld) [Entitic vol] 11.8 fL 6.2-12.0 [facility] Work Phone: [phone] Determination of erythrocyte mean corpuscular volume (MCV)on 11-28-2021 MCV (RBC) [Entitic vol] 88.7 fL 81-99 [facility] Work Phone: [phone] Hematocrit Auto (Bld) [Volum e fraction]on 11-28-2021 Hematocrit (Bld) [Volume fraction] 35.2 % 37-47 [facility] Work Phone: [phone] Laboratory - Chemistry and C hemistry - challengeon 11-28-2021 CO2 [Moles/Vol] 25.0 mmol/L 21.0-32.0 [facility] Work Phone: [phone] Urea nitrogen/Creatinine [Mass ratio] 10.9 mg/mg 10-20 [facility] Work Phone: [phone] Laboratory - Hematology and Cell countson 11-28-2021 Erythrocyte distribution width (RBC) [Entitic vol] 45.2 fL 35.1-43.9 [facility] Work Phone: [phone] Erythrocyte distribution width (RBC) [Ratio] 13.9 % 11.6-14.6 [facility] Work Phone: MCH (RBC) [Entitic mass] 28.7 pg 27.0-32.0 [facility] Work Phone: [phone] MCHC Auto (RBC) [Mass/Vol]on 11-28-2021 MCHC (RBC) [Mass/Vol] 32.4 g/dL 32-36 [facility] Work Phone: No Panel Informationon 11-28 Estimated GFR (MDRD) Amer 171 mL/min >60 [facility] Work Phone: Comment on above: GFR Calc Estimated GFR (MDRD) Non-Af Amer 141 mL/min >60 [facility] Work Phone: Comment on above: Non- GFR Calc Platelets bldon 11-28-2021 Platelets (Bld) [#/Vol] 339 10*3/uL 150-450 [facility] Work Phone: Serum or plasma calcium rajin urement (mass/volume)on 11-28-2021 Calcium [Mass/Vol] 9.1 mg/dL 8.5-10.1 [facility] Work Phone: [phone] Serum or plasma creatinine m easurement (mass/volume)on 11-28-2021 Creatinine [Mass/Vol] 0.46 mg/dL 0.55-1.02 [facility] Work Phone: Comment on above: The validity of the calculated GFR & GFRAA in patients over 70 years has not been determined. Clinical correlation is essential. Serum or plasma urea nitroge n measurement (mass/volume)on 11-28-2021 Urea nitrogen [Mass/Vol] 5 mg/dL 7-18 [facility] Work Phone: [phone] Thin prep Papanicolaou smear with manual screeningon 11-28-2021 Thin prep Papanicolaou smear with manual screening 9 5-15 [facility] Work Phone: [phone] Basophil percentageon 2021 Chloride [Moles/Vol] 102 mmol/L 98-107 [facility] Work Phone: [phone] Glucose [Mass/Vol] 103 mg/dL 74-106 [facility] Work Phone: [phone] Comment on above: Fasting Glucose resu lt from 100 to 125 mg/dL suggests IMPAIRED HOMEOSTASIS per A.D.A. criteria. Potassium [Moles/Vol] 3.2 mmol/L 3.5-5.1 [facility] Work Phone: [phone] Sodium [Moles/Vol] 136 mmol/L 136-145 [facility] Work Phone: [phone] WBC (Bld) [#/Vol] 9.2 10*3/uL 4.4-11.0 [facility] Work Phone: [phone] Blood erythrocytes count (nu mber/volume)on 11-21-2021 RBC (Bld) [#/Vol] 3.66 10*6/uL 4.2-5.4 [facility] Work Phone: [phone] Blood hemoglobin measurement (mass/volume)on 11-21-2021 Hemoglobin (Bld) [Mass/Vol] 10.6 g/dL 12.0-15.0 [facility] Work Phone: [phone] Blood platelet mean volumeon 11-21-2021 Platelet mean volume (Bld) [Entitic vol] 11.6 fL 6.2-12.0 [facility] Work Phone: [phone] Determination of erythrocyte mean corpuscular volume (MCV)on 11-21-2021 MCV (RBC) [Entitic vol] 91.8 fL 81-99 [facility] Work Phone: [phone] Hematocrit Auto (Bld) [Volum e fraction]on 11-21-2021 Hematocrit (Bld) [Volume fraction] 33.6 % 37-47 [facility] Work Phone: [phone] Laboratory - Chemistry and C hemistry - challengeon 11-21-2021 CO2 [Moles/Vol] 30.0 mmol/L 21.0-32.0 [facility] Work Phone: Urea nitrogen/Creatinine [Mass ratio] 14.3 mg/mg 10-20 [facility] Work Phone: Laboratory - Hematology and Cell countson 11-21-2021 Erythrocyte distribution width (RBC) [Entitic vol] 48.1 fL 35.1-43.9 [facility] Work Phone: Erythrocyte distribution width (RBC) [Ratio] 14.2 % 11.6-14.6 [facility] Work Phone: [phone] MCH (RBC) [Entitic mass] 29.0 pg 27.0-32.0 [facility] Work Phone: [phone] MCHC Auto (RBC) [Mass/Vol]on 11-21-2021 MCHC (RBC) [Mass/Vol] 31.5 g/dL 32-36 [facility] Work Phone: No Panel Informationon 11-21 Estimated GFR (MDRD) Amer 189 mL/min >60 [facility] Work Phone: Comment on above: GFR Calc Estimated GFR (MDRD) Non-Af Amer 156 mL/min >60 [facility] Work Phone: Comment on above: Non- GFR Calc Platelets bldon 11-21-2021 Platelets (Bld) [#/Vol] 382 10*3/uL 150-450 [facility] Work Phone: [phone] Serum or plasma calcium rajni urement (mass/volume)on 11-21-2021 Calcium [Mass/Vol] 9.2 mg/dL 8.5-10.1 [facility] Work Phone: [phone] Serum or plasma creatinine m easurement (mass/volume)on 11-21-2021 Creatinine [Mass/Vol] 0.42 mg/dL 0.55-1.02 [facility] Work Phone: Comment on above: The validity of the calculated GFR & GFRAA in patients over 70 years has not been determined. Clinical correlation is essential. Serum or plasma urea nitroge n measurement (mass/volume)on 11-21-2021 Urea nitrogen [Mass/Vol] 6 mg/dL 7-18 [facility] Work Phone: Thin prep Papanicolaou smear with manual screeningon 11-21-2021 Thin prep Papanicolaou smear with manual screening 4 5-15 [facility] Work Phone: Basophil percentageon 2021 Chloride [Moles/Vol] 101 mmol/L 98-107 [facility] Work [facility]: [phone] Glucose [Mass/Vol] 94 mg/dL 74-106 [facility] Work Phone: [phone] Potassium [Moles/Vol] 4.1 mmol/L 3.5-5.1 [facility] Work Phone: [phone] Sodium [Moles/Vol] 136 mmol/L 136-145 [facility] Work Phone: [phone] WBC (Bld) [#/Vol] 10.6 10*3/uL 4.4-11.0 [facility] Work Phone: Blood erythrocytes count (nu mber/volume)on 11-14-2021 RBC (Bld) [#/Vol] 3.93 10*6/uL 4.2-5.4 [facility] Work Phone: [phone] Blood hemoglobin measurement (mass/volume)on 11-14-2021 Hemoglobin (Bld) [Mass/Vol] 11.6 g/dL 12.0-15.0 [facility] Work Phone: Blood platelet mean volumeon 11-14-2021 Platelet mean volume (Bld) [Entitic vol] 11.8 fL 6.2-12.0 [facility] Work Phone: Determination of erythrocyte mean corpuscular volume (MCV)on 11-14-2021 MCV (RBC) [Entitic vol] 96.2 fL 81-99 [facility] Work Phone: Hematocrit Auto (Bld) [Volum e fraction]on 11-14-2021 Hematocrit (Bld) [Volume fraction] 37.8 % 37-47 [facility] Work Phone: Laboratory - Chemistry and C hemistry - challengeon 11-14-2021 CO2 [Moles/Vol] 26.0 mmol/L 21.0-32.0 [facility] Work Phone: [phone] Urea nitrogen/Creatinine [Mass ratio] 11.9 mg/mg 10-20 [facility] Work Phone: [phone] Laboratory - Hematology and Cell countson 11-14-2021 Erythrocyte distribution width (RBC) [Entitic vol] 51.3 fL 35.1-43.9 [facility] Work Phone: [phone] Erythrocyte distribution width (RBC) [Ratio] 14.5 % 11.6-14.6 [facility] Work Phone: [phone] MCH (RBC) [Entitic mass] 29.5 pg 27.0-32.0 [facility] Work Phone: [phone] MCHC Auto (RBC) [Mass/Vol]on 11-14-2021 MCHC (RBC) [Mass/Vol] 30.7 g/dL 32-36 [facility] Work Phone: No Panel Informationon 11-14 Estimated GFR (MDRD) Amer 153 mL/min >60 [facility] Work Phone: Comment on above: GFR Calc Estimated GFR (MDRD) Non-Af Amer 126 mL/min >60 [facility] Work Phone: [phone] Comment on above: Non- GFR Calc Platelets bldon 11-14-2021 Platelets (Bld) [#/Vol] 473 10*3/uL 150-450 [facility] Work Phone: [phone] Serum or plasma calcium rajni urement (mass/volume)on 11-14-2021 Calcium [Mass/Vol] 9.7 mg/dL 8.5-10.1 [facility] Work Phone: [phone] Serum or plasma creatinine m easurement (mass/volume)on 11-14-2021 Creatinine [Mass/Vol] 0.50 mg/dL 0.55-1.02 [facility] Work Phone: Comment on above: The validity of the calculated GFR & GFRAA in patients over 70 years has not been determined. Clinical correlation is essential. Serum or plasma urea nitroge n measurement (mass/volume)on 11-14-2021 Urea nitrogen [Mass/Vol] 6 mg/dL 7-18 [facility] Work Phone: Thin prep Papanicolaou smear with manual screeningon 11-14-2021 Thin prep Papanicolaou smear with manual screening 9 5-15 [facility] Work Phone: Basophil percentageon 2021 Basophil percentage 0-5 SEEN /hpf 0-5 [facility] Work Phone: Bilirubin Test strip Ql (U)o n 11-09-2021 Bilirubin Ql (U) Negative Negative [facility] Work Phone: Ketones Test strip Ql (U)on 11-09-2021 Ketones Ql (U) Negative Negative [facility] Work Phone: Mucus LM Ql (Urine sed)on Mucus Ql (Urine sed) 0 SEEN /hpf [facility] Work Phone: Nitrite Test strip Ql (U)on 11-09-2021 Nitrite Ql (U) Positive Negative [facility] Work Phone: Protein Test strip Ql (U)on 11-09-2021 Protein Ql (U) Negative Negative [facility] Work Phone: Squamous epithelial cells de tection in urine sediment by light microscopyon 11-09-2021 Epithelial cells.squamous LM Ql (Urine sed) 0-5 SEEN /hpf 5-10 [facility] Work Phone: Urine blood detectionon - RBC Ql (U) 10 /ul Negative [facility] Work Phone: RBC Ql (U) 0 SEEN /hpf 0-5 [facility] Work Phone: Urine clarityon 11-09-2021 Clarity (U) Clear Clear [facility] Work Phone: Urine color determinationon 11-09-2021 Color (U) Yellow Yellow [facility] Work Phone: Urine glucose detectionon Glucose Ql (U) Normal mg/dl Normal [facility] Work Phone: Urine leukocyte esterase det ection by dipstickon 11-09-2021 Leukocyte esterase Test strip Ql (U) 500 /ul Negative [facility] Work Phone: Urine pHon 11-09-2021 pH (U) 7.0 [pH] 5.0 - 8.0 [facility] Work Phone: Urine sediment bacteria coun t by microscopy (number/high power field)on 11-09-2021 Bacteria LM.HPF (Urine sed) [#/Area] 0 /[HPF] None Seen [facility] Work Phone: Urine specific gravity measu rementon 11-09-2021 Specific gravity (U) [Rel density] 1.010 1.002-1.030 [facility] Work Phone: Urobilinogen Auto test strip Ql (U)on 11-09-2021 Urobilinogen Ql (U) Normal mg/dl Normal [facility] Work Phone: Basophil percentageon 2021 Chloride [Moles/Vol] 102 mmol/L 98-107 [facility] Work Phone: Glucose [Mass/Vol] 113 mg/dL 74-106 [facility] Work Phone: Comment on above: Fasting Glucose resu lt from 100 to 125 mg/dL suggests IMPAIRED HOMEOSTASIS per A.D.A. criteria. Potassium [Moles/Vol] 3.4 mmol/L 3.5-5.1 [facility] Work Phone: Sodium [Moles/Vol] 137 mmol/L 136-145 [facility] Work Phone: WBC (Bld) [#/Vol] 9.7 10*3/uL 4.4-11.0 [facility] Work Phone: Blood erythrocytes count (nu mber/volume)on 11-07-2021 RBC (Bld) [#/Vol] 3.32 10*6/uL 4.2-5.4 [facility] Work Phone: Blood hemoglobin measurement (mass/volume)on 11-07-2021 Hemoglobin (Bld) [Mass/Vol] 9.9 g/dL 12.0-15.0 [facility] Work Phone: [phone] Blood platelet mean volumeon 11-07-2021 Platelet mean volume (Bld) [Entitic vol] 10.3 fL 6.2-12.0 [facility] Work Phone: Determination of erythrocyte mean corpuscular volume (MCV)on 11-07-2021 MCV (RBC) [Entitic vol] 94.9 fL 81-99 [facility] Work Phone: [phone] Hematocrit Auto (Bld) [Volum e fraction]on 11-07-2021 Hematocrit (Bld) [Volume fraction] 31.5 % 37-47 [facility] Work Phone: Laboratory - Chemistry and C hemistry - challengeon 11-07-2021 CO2 [Moles/Vol] 29.0 mmol/L 21.0-32.0 [facility] Work Phone: Urea nitrogen/Creatinine [Mass ratio] 17.7 mg/mg 10-20 [facility] Work Phone: [phone] Laboratory - Hematology and Cell countson 11-07-2021 Erythrocyte distribution width (RBC) [Entitic vol] 49.9 fL 35.1-43.9 [facility] Work Phone: [phone] Erythrocyte distribution width (RBC) [Ratio] 14.2 % 11.6-14.6 [facility] Work Phone: [phone] MCH (RBC) [Entitic mass] 29.8 pg 27.0-32.0 [facility] Work Phone: [phone] MCHC Auto (RBC) [Mass/Vol]on 11-07-2021 MCHC (RBC) [Mass/Vol] 31.4 g/dL 32-36 [facility] Work Phone: No Panel Informationon 11-07 Estimated GFR (MDRD) Amer 203 mL/min >60 [facility] Work Phone: Comment on above: GFR Calc Estimated GFR (MDRD) Non-Af Amer 168 mL/min >60 [facility] Work Phone: Comment on above: Non- GFR Calc Platelets bldon 11-07-2021 Platelets (Bld) [#/Vol] 357 10*3/uL 150-450 [facility] Work Phone: Serum or plasma calcium rajni urement (mass/volume)on 11-07-2021 Calcium [Mass/Vol] 8.8 mg/dL 8.5-10.1 [facility] Work Phone: Serum or plasma creatinine m easurement (mass/volume)on 11-07-2021 Creatinine [Mass/Vol] 0.40 mg/dL 0.55-1.02 [facility] Work Phone: Comment on above: The validity of the calculated GFR & GFRAA in patients over 70 years has not been determined. Clinical correlation is essential. Serum or plasma urea nitroge n measurement (mass/volume)on 11-07-2021 Urea nitrogen [Mass/Vol] 7 mg/dL 7-18 [facility] Work Phone: Thin prep Papanicolaou smear with manual screeningon 11-07-2021 Thin prep Papanicolaou smear with manual screening 6 5-15 [facility] Work Phone: CNOVon 11-03-2021 CNOV Normal [facility] CNNURSEon 11-02-2021 CNNURSE Normal [facility] XR CHEST 2V FRONTAL/LATon XR CHEST 2V FRONTAL/LAT Normal [facility] Basophil percentageon 2021 Chloride [Moles/Vol] 99 mmol/L 98-107 [facility] Work Phone: Glucose [Mass/Vol] 107 mg/dL 74-106 [facility] Work Phone: Comment on above: Fasting Glucose resu lt from 100 to 125 mg/dL suggests IMPAIRED HOMEOSTASIS per A.D.A. criteria. Potassium [Moles/Vol] 3.5 mmol/L 3.5-5.1 [facility] Work Phone: Sodium [Moles/Vol] 135 mmol/L 136-145 [facility] Work Phone: [phone] WBC (Bld) [#/Vol] 12.1 10*3/uL 4.4-11.0 [facility] Work Phone: Blood erythrocytes count (nu mber/volume)on 10-31-2021 RBC (Bld) [#/Vol] 3.12 10*6/uL 4.2-5.4 [facility] Work Phone: Blood hemoglobin measurement (mass/volume)on 10-31-2021 Hemoglobin (Bld) [Mass/Vol] 9.3 g/dL 12.0-15.0 [facility] Work Phone: [phone] Blood platelet mean volumeon 10-31-2021 Platelet mean volume (Bld) [Entitic vol] 9.8 fL 6.2-12.0 [facility] Work Phone: Determination of erythrocyte mean corpuscular volume (MCV)on 10-31-2021 MCV (RBC) [Entitic vol] 96.2 fL 81-99 [facility] Work Phone: [phone] Hematocrit Auto (Bld) [Volum e fraction]on 10-31-2021 Hematocrit (Bld) [Volume fraction] 30.0 % 37-47 [facility] Work Phone: Laboratory - Chemistry and C hemistry - challengeon 10-31-2021 CO2 [Moles/Vol] 26.0 mmol/L 21.0-32.0 [facility] Work Phone: Urea nitrogen/Creatinine [Mass ratio] 14.1 mg/mg 10-20 [facility] Work Phone: [phone] Laboratory - Hematology and Cell countson 10-31-2021 Erythrocyte distribution width (RBC) [Entitic vol] 50.3 fL 35.1-43.9 [facility] Work Phone: Erythrocyte distribution width (RBC) [Ratio] 14.3 % 11.6-14.6 [facility] Work Phone: MCH (RBC) [Entitic mass] 29.8 pg 27.0-32.0 [facility] Work Phone: [phone] MCHC Auto (RBC) [Mass/Vol]on 10-31-2021 MCHC (RBC) [Mass/Vol] 31.0 g/dL 32-36 [facility] Work Phone: No Panel Informationon 10-31 Estimated GFR (MDRD) Amer 157 mL/min >60 [facility] Work Phone: Comment on above: GFR Calc Estimated GFR (MDRD) Non-Af Amer 129 mL/min >60 [facility] Work Phone: Comment on above: Non- GFR Calc Platelets bldon 10-31-2021 Platelets (Bld) [#/Vol] 459 10*3/uL 150-450 [facility] Work Phone: Serum or plasma calcium rajni urement (mass/volume)on 10-31-2021 Calcium [Mass/Vol] 7.8 mg/dL 8.5-10.1 [facility] Work Phone: [phone] Serum or plasma creatinine m easurement (mass/volume)on 10-31-2021 Creatinine [Mass/Vol] 0.50 mg/dL 0.55-1.02 [facility] Work Phone: Comment on above: The validity of the calculated GFR & GFRAA in patients over 70 years has not been determined. Clinical correlation is essential. Serum or plasma urea nitroge n measurement (mass/volume)on 10-31-2021 Urea nitrogen [Mass/Vol] 7 mg/dL 7-18 [facility] Work Phone: [phone] Thin prep Papanicolaou smear with manual screeningon 10-31-2021 Thin prep Papanicolaou smear with manual screening 10 5-15 [facility] Work Phone: CT BRAIN WO IVCONon 10-31-19 [facility] Basophil percentageon 2021 Chloride [Moles/Vol] 98 mmol/L 98-107 [facility] Work Phone: Glucose [Mass/Vol] 150 mg/dL 74-106 [facility] Work Phone: Comment on above: Fasting Glucose resu lt greater than or equal to 126 mg/dL suggests DIABETES MELLITUS per A.D.A. criteria. Potassium [Moles/Vol] 3.2 mmol/L 3.5-5.1 [facility] Work Phone: Sodium [Moles/Vol] 136 mmol/L 136-145 [facility] Work Phone: Laboratory - Chemistry and C hemistry - challengeon 10-27-2021 CO2 [Moles/Vol] 31.0 mmol/L 21.0-32.0 [facility] Work Phone: Urea nitrogen/Creatinine [Mass ratio] 7.4 mg/mg 10-20 [facility] Work Phone: No Panel Informationon 10-27 Estimated GFR (MDRD) Amer 143 mL/min >60 [facility] Work Phone: Comment on above: GFR Calc Estimated GFR (MDRD) Non-Af Amer 118 mL/min >60 [facility] Work Phone: Comment on above: Non- GFR Calc Serum or plasma calcium rajni urement (mass/volume)on 10-27-2021 Calcium [Mass/Vol] 7.1 mg/dL 8.5-10.1 [facility] Work Phone: Serum or plasma creatinine m easurement (mass/volume)on 10-27-2021 Creatinine [Mass/Vol] 0.54 mg/dL 0.55-1.02 [facility] Work Phone: Comment on above: The validity of the calculated GFR & GFRAA in patients over 70 years has not been determined. Clinical correlation is essential. Serum or plasma urea nitroge n measurement (mass/volume)on 10-27-2021 Urea nitrogen [Mass/Vol] 4 mg/dL 7-18 [facility] Work Phone: Thin prep Papanicolaou smear with manual screeningon 10-27-2021 Thin prep Papanicolaou smear with manual screening 7 5-15 [facility] Work Phone: [phone] Basophil percentageon 2021 Chloride [Moles/Vol] 95 mmol/L 98-107 [facility] Work Phone: [phone] Glucose [Mass/Vol] 90 mg/dL 74-106 [facility] Work Phone: [phone] Potassium [Moles/Vol] 3.4 mmol/L 3.5-5.1 [facility] Work Phone: [phone] Sodium [Moles/Vol] 130 mmol/L 136-145 [facility] Work Phone: [phone] WBC (Bld) [#/Vol] 12.7 10*3/uL 4.4-11.0 [facility] Work Phone: Blood erythrocytes count (nu mber/volume)on 10-24-2021 RBC (Bld) [#/Vol] 2.63 10*6/uL 4.2-5.4 [facility] Work Phone: [phone] Blood hemoglobin measurement (mass/volume)on 10-24-2021 Hemoglobin (Bld) [Mass/Vol] 8.3 g/dL 12.0-15.0 [facility] Work Phone: [phone] Blood platelet mean volumeon 10-24-2021 Platelet mean volume (Bld) [Entitic vol] 9.4 fL 6.2-12.0 [facility] Work Phone: [phone] Determination of erythrocyte mean corpuscular volume (MCV)on 10-24-2021 MCV (RBC) [Entitic vol] 93.9 fL 81-99 [facility] Work Phone: [phone] Hematocrit Auto (Bld) [Volum e fraction]on 10-24-2021 Hematocrit (Bld) [Volume fraction] 24.7 % 37-47 [facility] Work Phone: [phone] Laboratory - Chemistry and C hemistry - challengeon 10-24-2021 CO2 [Moles/Vol] 27.0 mmol/L 21.0-32.0 [facility] Work Phone: [phone] Urea nitrogen/Creatinine [Mass ratio] 25.4 mg/mg 10-20 [facility] Work Phone: [phone] Laboratory - Hematology and Cell countson 10-24-2021 Erythrocyte distribution width (RBC) [Entitic vol] 47.5 fL 35.1-43.9 [facility] Work Phone: [phone] Erythrocyte distribution width (RBC) [Ratio] 13.9 % 11.6-14.6 [facility] Work Phone: [phone] MCH (RBC) [Entitic mass] 31.6 pg 27.0-32.0 [facility] Work Phone: [phone] MCHC Auto (RBC) [Mass/Vol]on 10-24-2021 MCHC (RBC) [Mass/Vol] 33.6 g/dL 32-36 [facility] Work Phone: [phone] No Panel Informationon 10-24 Estimated GFR (MDRD) Amer 230 mL/min >60 [facility] Work Phone: [phone] Comment on above: GFR Calc Estimated GFR (MDRD) Non-Af Amer 190 mL/min >60 [facility] Work Phone: [phone] Comment on above: Non- GFR Calc Platelets bldon 10-24-2021 Platelets (Bld) [#/Vol] 529 10*3/uL 150-450 [facility] Work Phone: [phone] Serum or plasma calcium rajni urement (mass/volume)on 10-24-2021 Calcium [Mass/Vol] 7.9 mg/dL 8.5-10.1 [facility] Work Phone: [phone] Serum or plasma creatinine m easurement (mass/volume)on 10-24-2021 Creatinine [Mass/Vol] 0.35 mg/dL 0.55-1.02 [facility] Work Phone: Comment on above: The validity of the calculated GFR & GFRAA in patients over 70 years has not been determined. Clinical correlation is essential. Serum or plasma urea nitroge n measurement (mass/volume)on 10-24-2021 Urea nitrogen [Mass/Vol] 9 mg/dL 7-18 [facility] Work Phone: Thin prep Papanicolaou smear with manual screeningon 10-24-2021 Thin prep Papanicolaou smear with manual screening 8 5-15 [facility] Work Phone: CNPNon 10-20-2021 CNPN Normal [facility] ALLIED HEALTHon 10-17-2021 ALLIED HEALTH Normal [facility] Basic metabolic 2000 panelon 10-17-2021 Anion gap [Moles/Vol] 12 mmol/L Normal 9-18 [facility] Comment on above: Order Comment: Speci men Type: BLOOD SPECIMENOrdering Facility: [facility] Address: [address] [place] [address] Performed By: #### 2 4321-2 ####[facility] LABORATORYCLIA [id number] [place] [address] [place] Calcium [Mass/Vol] 6.5 mg/dL Low 8.5-10.2 [facility] Comment on above: Order Comment: Speci men Type: BLOOD SPECIMENOrdering Facility: [facility] Address: [address] [address] Performed By: #### 2 4321-2 ####[facility] LABORATORYCLIA [id number] [place] [address] [place] Chloride [Moles/Vol] 95 mmol/L Low 97-105 [facility] Comment on above: Order Comment: Speci men Type: BLOOD SPECIMENOrdering Facility: [facility] Address: [address] [address] Performed By: #### 2 4321-2 ####[facility] LABORATORYCLIA [id number] [address] [place] CO2 [Moles/Vol] 25 mmol/L Normal 22-30 [facility] Comment on above: Order Comment: Speci men Type: BLOOD SPECIMENOrdering Facility: [facility] Address: [address] [place] [address] Performed By: #### 2 4321-2 ####[facility] LABORATORYCLIA [id number] [address] Creatinine [Mass/Vol] 0.44 mg/dL Low 0.58-0.96 [facility] Comment on above: Order Comment: Speci men Type: BLOOD SPECIMENOrdering Facility: [facility] Address: [address] [place] [address] Performed By: #### 2 4321-2 ####[facility]NA[facility] [id number] [address] ESTIMATED GLOMERULAR FILTRATION RATE 102 mL/min/1.73m??? Normal >=60 [facility] Comment on above: Order Comment: Speci men Type: BLOOD SPECIMENOrdering Facility: [facility] Address: [address] [place] [address] Result Comment: Lulu mated Glomerular Filtration Rate [...] actual GFR. Performed By: #### 2 4321-2 ####[facility] LABORATORYCLIA [id number] [address] STATES OF [facility] Glucose [Mass/Vol] 122 mg/dL High 74-99 [facility] Comment on above: Order Comment: Speci men Type: BLOOD SPECIMENOrdering Facility: [facility] Address: [address] [place] [address] Result Comment: The [place] [employer] (ADA) provides guidance for cutoff [...] Standards of Medical Care in Diabetes 2016, [place] [employer]. Diabetes Care. 2016.39(Suppl 1). Performed By: #### 2 4321-2 ####[facility] LABORATORYCLIA [id number] [address] [place] [facility] Potassium [Moles/Vol] 3.7 mmol/L Normal 3.7-5.1 [facility] Comment on above: Order Comment: Speci men Type: BLOOD SPECIMENOrdering Facility: [facility] Address: [address] [place] [address] Performed By: #### 2 4321-2 ####[facility]ORATORYCLIA [id number] [address] Sodium [Moles/Vol] 132 mmol/L Low 136-144 [facility] Comment on above: Order Comment: Speci men Type: BLOOD SPECIMENOrdering Facility: [facility] Address: [address] [place] [address] Performed By: #### 2 4321-2 ####[facility] LABORATORYCLIA [id number] [address] STATES [facility] Urea nitrogen [Mass/Vol] 10 mg/dL Normal 7-21 [facility] Comment on above: Order Comment: Speci men Type: BLOOD SPECIMENOrdering Facility: [facility] Address: [facility] [address] Performed By: #### 2 4321-2 ####[facility] LABORATORYCLIA [id number] [address] [facility] CASE MANAGEMon 10-17-2021 CASE MANAGEM Normal [facility] CASE MANAGEM Normal [facility] CBC panel Auto (Bld)on 10-17 Erythrocyte distribution width (RBC) [Ratio] 13.6 % Normal 11.5-15.0 [facility] Comment on above: Order Comment: Speci men Type: BLOOD SPECIMENOrdering Facility: [facility] Address: [address] [place] [address] Performed By: #### 5 8410-2 ####[facility] LABORATORYCLIA [id number] [address] OF [facility] Hematocrit (Bld) [Volume fraction] 25.2 % Low 36.0-46.0 [facility] Comment on above: Order Comment: Speci men Type: BLOOD SPECIMENOrdering Facility: [facility] Address: [address] [place] [address] Performed By: #### 5 8410-2 ####[facility] LABORATORYCLIA [id number] [address] OF [facility] Hemoglobin (Bld) [Mass/Vol] 8.6 g/dL Low 11.5-15.5 [facility] Comment on above: Order Comment: Speci men Type: BLOOD SPECIMENOrdering Facility: [facility] Address: [address] [place] [address] Performed By: #### 5 8410-2 ####[facility] LABORATORYCLIA [id number] [address] [place] MCH (RBC) [Entitic mass] 32.2 pg Normal 26.0-34.0 [facility] Comment on above: Order Comment: Speci men Type: BLOOD SPECIMENOrdering Facility: [facility] Address: [address] [place] [address] Performed By: #### 5 8410-2 ####[facility] LABORATORYCLIA [id number] [address] [place] MCHC (RBC) [Mass/Vol] 34.1 g/dL Normal 30.5-36.0 [facility] Comment on above: Order Comment: Speci men Type: BLOOD SPECIMENOrdering Facility: [facility] Address: [address] Performed By: #### 5 8410-2 ####[facility]ORATORYCLIA [id number] [address] STATES [facility] MCV (RBC) [Entitic vol] 94.4 fL Normal 80.0-100.0 [facility] Comment on above: Order Comment: Speci men Type: BLOOD SPECIMENOrdering Facility: [facility] Address: [address] [place], [place] [address] Performed By: #### 5 8410-2 ####[facility]ORATORYCLIA [id number] [address] OF [place] Nucleated RBC (Bld) [#/Vol] 10*3/uL Normal <0.01 [facility] Comment on above: Order Comment: Speci men Type: BLOOD SPECIMENOrdering Facility: [facility] Address: [address] [place] [address] Performed By: #### 5 8410-2 ####[facility]ATORYCLIA [id number] [address] Platelet mean volume (Bld) [Entitic vol] 8.9 fL Low 9.0-12.7 [facility] Comment on above: Order Comment: Speci men Type: BLOOD SPECIMENOrdering Facility: [facility] Address: [address] [place], [place] [address] Performed By: #### 5 8410-2 ####[facility]ORATORYCLIA [id number] [address] [place] Platelets (Bld) [#/Vol] 519 10*3/uL High 150-400 [facility] Comment on above: Order Comment: Speci men Type: BLOOD SPECIMENOrdering Facility: [facility] Address: [facility] [place] [address] Performed By: #### 5 8410-2 ####[facility] LABORATORYCLIA [id number] [address] STATES OF [facility] RBC (Bld) [#/Vol] 2.67 10*6/uL Low 3.90-5.20 [facility] Comment on above: Order Comment: Speci men Type: BLOOD SPECIMENOrdering Facility: [facility] Address: [address] [place] [address] Performed By: #### 5 8410-2 ####[facility]ORATORYCLIA [id number] [address] WBC (Bld) [#/Vol] 19.03 10*3/uL High 3.70-11.00 [facility] Comment on above: Order Comment: Speci men Type: BLOOD SPECIMENOrdering Facility: [facility] Address: [address] [place] [address] Performed By: #### 5 8410-2 ####[facility]PITALIA [id number] [address] CNDSon 10-17-2021 CNDS Normal [facility] SARS-CoV-2 RNA Resp Ql LEONA+p robeon 10-17-2021 SARS-CoV-2 (COVID-19) RNA LEONA+probe Ql (Resp) COVID 19 RESULT: SARS-CoV-2 (Agent of COVID-19) Not Detected by RT-PCR or equivalent method. This test has been authorized by FDA under an Emergency Use Authorization (EUA). Normal [facility] Comment on above: Performed By: #### 9 4500-6 ####[facility]ORATORYCLIA [id number] [address] OF [facility] XR CHEST 1V FRONTALon 2021 XR CHEST 1V FRONTAL Normal [facility] Basic metabolic 2000 panelon 10-16-2021 Anion gap [Moles/Vol] 11 mmol/L Normal 9-18 [facility] Comment on above: Order Comment: Speci men Type: BLOOD SPECIMENOrdering Facility: [facility] Address: [address] [place] [address] Performed By: #### 2 4321-2 ####[facility]ATORYCLIA [id number] [address] [place] Calcium [Mass/Vol] 7.0 mg/dL Low 8.5-10.2 [facility] Comment on above: Order Comment: Speci men Type: BLOOD SPECIMENOrdering Facility: [facility] Address: [address] [place] [address] Performed By: #### 2 4321-2 ####[facility]ORATORYCLIA [id number] [address] [place] Chloride [Moles/Vol] 95 mmol/L Low 97-105 [facility] Comment on above: Order Comment: Speci men Type: BLOOD SPECIMENOrdering Facility: [facility] Address: [address] [place] [address] Performed By: #### 2 4321-2 ####[facility]ATORYCLIA [id number] [address] CO2 [Moles/Vol] 26 mmol/L Normal 22-30 [facility] Comment on above: Order Comment: Speci men Type: BLOOD SPECIMENOrdering Facility: [facility] Address: [address] [place] [address] Performed By: #### 2 4321-2 ####[facility]ORATORYCLIA [id number] [address] [place] Creatinine [Mass/Vol] 0.38 mg/dL Low 0.58-0.96 [facility] Comment on above: Order Comment: Speci men Type: BLOOD SPECIMENOrdering Facility: [facility] Address: [address] [place] [address] Performed By: #### 2 4321-2 ####[facility]ORATORYCLIA [id number] [address] ESTIMATED GLOMERULAR FILTRATION RATE 105 mL/min/1.73m??? Normal >=60 [facility] Comment on above: Order Comment: Speci men Type: BLOOD SPECIMENOrdering Facility: [facility] Address: [address] [place] [address] Result Comment: Lulu mated Glomerular Filtration Rate [...] actual GFR. Performed By: #### 2 4321-2 ####[facility]ORATORYCLIA [id number] [place] [address] [place] Glucose [Mass/Vol] 120 mg/dL High 74-99 [facility] Comment on above: Order Comment: Sharath lozano Type: BLOOD SPECIMENOrdering Facility: [facility] Address: [address] [place], [place] [address] Result Comment: The [place] [employer] (ADA) provides guidance for cutoff [...] Standards of Medical Care in Diabetes 2016, [place] [employer]. Diabetes Care. 2016.39(Suppl 1). Performed By: #### 2 4321-2 ####[facility]ORATORYCLIA [id number] [place] [address] [place] Potassium [Moles/Vol] 3.6 mmol/L Low 3.7-5.1 [facility] Comment on above: Order Comment: Sharath lozano Type: BLOOD SPECIMENOrdering Facility: [facility] Address: [address] [place] [address] Performed By: #### 2 4321-2 ####[facility]ORATORYCLIA [id number] [place] [address] [place] Sodium [Moles/Vol] 132 mmol/L Low 136-144 [facility] Comment on above: Order Comment: Speci men Type: BLOOD SPECIMENOrdering Facility: [facility] Address: [address] [place] [address] Performed By: #### 2 4321-2 ####[facility]ORATORYCLIA [id number] [place] [address] [place] Urea nitrogen [Mass/Vol] 11 mg/dL Normal 7-21 [facility] Comment on above: Order Comment: Speci men Type: BLOOD SPECIMENOrdering Facility: [facility] Address: [address] [place] [address] Performed By: #### 2 4321-2 ####[facility]ORATORYCLIA [id number] [address] [place] CASE MANAGEMon 10-16-2021 CASE MANAGEM Normal [facility] CASE MANAGEM Normal [facility] CBC panel Auto (Bld)on 10-16 Erythrocyte distribution width (RBC) [Ratio] 13.6 % Normal 11.5-15.0 [facility] Comment on above: Order Comment: Speci men Type: BLOOD SPECIMENOrdering Facility: [facility] Address: [address] [place] [address] Performed By: #### 5 8410-2 ####[facility]ORATORYCLIA [id number] [place] [address] [place] Hematocrit (Bld) [Volume fraction] 25.6 % Low 36.0-46.0 [facility] Comment on above: Order Comment: Speci men Type: BLOOD SPECIMENOrdering Facility: [facility] Address: [address] [place] [address] Performed By: #### 5 8410-2 ####[facility]ORATORYCLIA [id number] [place] [address] [place] Hemoglobin (Bld) [Mass/Vol] 8.7 g/dL Low 11.5-15.5 [facility] Comment on above: Order Comment: Speci men Type: BLOOD SPECIMENOrdering Facility: [facility] Address: [address] [place] [address] Performed By: #### 5 8410-2 ####[facility]ORATORYCLIA [id number] [address] MCH (RBC) [Entitic mass] 32.0 pg Normal 26.0-34.0 [facility] Comment on above: Order Comment: Speci men Type: BLOOD SPECIMENOrdering Facility: [facility] Address: [address] [place] [address] Performed By: #### 5 8410-2 ####[facility]ORATORYCLIA [id number] [address] MCHC (RBC) [Mass/Vol] 34.0 g/dL Normal 30.5-36.0 [facility] Comment on above: Order Comment: Speci men Type: BLOOD SPECIMENOrdering Facility: [facility] Address: [address] [place] [address] Performed By: #### 5 8410-2 ####[facility]ORATORYCLIA [id number] [address] MCV (RBC) [Entitic vol] 94.1 fL Normal 80.0-100.0 [facility] Comment on above: Order Comment: Speci men Type: BLOOD SPECIMENOrdering Facility: [facility] Address: [address] [place] [address] Performed By: #### 5 8410-2 ####[facility]ATORYCLIA [id number] [address] Nucleated RBC (Bld) [#/Vol] 10*3/uL Normal <0.01 [facility] Comment on above: Order Comment: Speci men Type: BLOOD SPECIMENOrdering Facility: [facility] Address: [address] [place] [address] Performed By: #### 5 8410-2 ####[facility]ORATORYCLIA [id number] [address] [place] Platelet mean volume (Bld) [Entitic vol] 8.8 fL Low 9.0-12.7 [facility] Comment on above: Order Comment: Speci men Type: BLOOD SPECIMENOrdering Facility: [facility] Address: [address] [place] [address] Performed By: #### 5 8410-2 ####[facility]ORATORYCLIA [id number] [place] [address] [place] Platelets (Bld) [#/Vol] 465 10*3/uL High 150-400 [facility] Comment on above: Order Comment: Speci men Type: BLOOD SPECIMENOrdering Facility: [facility] Address: [address] [place] [address] Performed By: #### 5 8410-2 ####[facility]ATORYCLIA [id number] [place] [address] [place] RBC (Bld) [#/Vol] 2.72 10*6/uL Low 3.90-5.20 [facility] Comment on above: Order Comment: Speci men Type: BLOOD SPECIMENOrdering Facility: [facility] Address: [address] [place] [address] Performed By: #### 5 8410-2 ####[facility]ORATORYCLIA [id number] [address] [place] WBC (Bld) [#/Vol] 17.77 10*3/uL High 3.70-11.00 [facility] Comment on above: Order Comment: Speci men Type: BLOOD SPECIMENOrdering Facility: [facility] Address: [address] [place] [address] Performed By: #### 5 8410-2 ####[facility]ORATORYCLIA [id number] [address] [place] CONSULT PROGon 10-16-2021 CONSULT PROG Normal [facility] THERAPY NTon 10-16-2021 THERAPY NT Normal [facility] THERAPY NT Normal [facility] Basic metabolic 2000 panelon 10-15-2021 Anion gap [Moles/Vol] 11 mmol/L Normal 9-18 [facility] Comment on above: Order Comment: Speci men Type: BLOOD SPECIMENOrdering Facility: [facility] Address: [address] [place] [address] Performed By: #### 2 4321-2 ####[facility]ORATORYCLIA [id number] [place] [address] [place] Calcium [Mass/Vol] 6.8 mg/dL Low 8.5-10.2 [facility] Comment on above: Order Comment: Speci men Type: BLOOD SPECIMENOrdering Facility: [facility] Address: [address] [place] [address] Performed By: #### 2 4321-2 ####[facility]ORATORYCLIA [id number] [place] [address] [place] Chloride [Moles/Vol] 97 mmol/L Normal 97-105 [facility] Comment on above: Order Comment: Speci men Type: BLOOD SPECIMENOrdering Facility: [facility] Address: [address] [place] [address] Performed By: #### 2 4321-2 ####[facility]ORATORYCLIA [id number] [place] [address] [place] CO2 [Moles/Vol] 26 mmol/L Normal 22-30 [facility] Comment on above: Order Comment: Speci men Type: BLOOD SPECIMENOrdering Facility: [facility] Address: [address] [place] [address] Performed By: #### 2 4321-2 ####[facility]ORATORYCLIA [id number] [place] [address] [place] Creatinine [Mass/Vol] 0.44 mg/dL Low 0.58-0.96 [facility] Comment on above: Order Comment: Speci men Type: BLOOD SPECIMENOrdering Facility: [facility] Address: [address] [place], [place] [address] Performed By: #### 2 4321-2 ####[facility]ORATORYCLIA [id number] [place] [address] [place] ESTIMATED GLOMERULAR FILTRATION RATE 102 mL/min/1.73m??? Normal >=60 [facility] Comment on above: Order Comment: Sharath lozano Type: BLOOD SPECIMENOrdering Facility: [facility] Address: [address] [place] [address] Result Comment: Lulu mated Glomerular Filtration Rate [...] actual GFR. Performed By: #### 2 4321-2 ####[facility]CL[facility] [id number] [place] [address] [place] Glucose [Mass/Vol] 111 mg/dL High 74-99 [facility] Comment on above: Order Comment: Sharath lozano Type: BLOOD SPECIMENOrdering Facility: [facility] Address: [address] [place] [address] Result Comment: The [place] [employer] (ADA) provides guidance for cutoff [...] Standards of Medical Care in Diabetes 2016, [place] [employer]. Diabetes Care. 2016.39(Suppl 1). Performed By: #### 2 4321-2 ####[facility]ORATORYCLIA [id number] [place] [id number] [place] Potassium [Moles/Vol] 3.5 mmol/L Low 3.7-5.1 [facility] Comment on above: Order Comment: Speci men Type: BLOOD SPECIMENOrdering Facility: [facility] Address: [address] [place] [address] Performed By: #### 2 4321-2 ####[facility]ORATORYCLIA [id number] [address] STATES OF [facility] Sodium [Moles/Vol] 134 mmol/L Low 136-144 [facility] Comment on above: Order Comment: Speci men Type: BLOOD SPECIMENOrdering Facility: [facility] Address: [address] [place] [address] Performed By: #### 2 4321-2 ####[facility]ORATORYCLIA [id number] [address] STATES OF [facility] Urea nitrogen [Mass/Vol] 11 mg/dL Normal 7-21 [facility] Comment on above: Order Comment: Speci men Type: BLOOD SPECIMENOrdering Facility: [facility] Address: [address] [place] [address] Performed By: #### 2 4321-2 ####[facility]ORATORYCLIA [id number] [address] STATES OF [facility] CBC panel Auto (Bld)on 10-15 Erythrocyte distribution width (RBC) [Ratio] 13.6 % Normal 11.5-15.0 [facility] Comment on above: Order Comment: Speci men Type: BLOOD SPECIMENOrdering Facility: [facility] Address: [address] [place] [address] Performed By: #### 5 8410-2 ####[facility]ORATORYCLIA [id number] [address] Hematocrit (Bld) [Volume fraction] 23.5 % Low 36.0-46.0 [facility] Comment on above: Order Comment: Speci men Type: BLOOD SPECIMENOrdering Facility: [facility] Address: [address] [place] [address] Performed By: #### 5 8410-2 ####[facility]ATORYCLIA [id number] [address] Hemoglobin (Bld) [Mass/Vol] 7.9 g/dL Low 11.5-15.5 [facility] Comment on above: Order Comment: Speci men Type: BLOOD SPECIMENOrdering Facility: [facility] Address: [address] [place] [address] Performed By: #### 5 8410-2 ####[facility]ORATORYCLIA [id number] [address] MCH (RBC) [Entitic mass] 32.6 pg Normal 26.0-34.0 [facility] Comment on above: Order Comment: Speci men Type: BLOOD SPECIMENOrdering Facility: [facility] Address: [address] [place] [address] Performed By: #### 5 8410-2 ####[facility]ATORYCLIA [id number] [address] MCHC (RBC) [Mass/Vol] 33.6 g/dL Normal 30.5-36.0 [facility] Comment on above: Order Comment: Speci men Type: BLOOD SPECIMENOrdering Facility: [facility] Address: [address] [place] [address] Performed By: #### 5 8410-2 ####[facility]ORATORYCLIA [id number] [address] MCV (RBC) [Entitic vol] 97.1 fL Normal 80.0-100.0 [facility] Comment on above: Order Comment: Speci men Type: BLOOD SPECIMENOrdering Facility: [facility] Address: [address] [place] [address] Performed By: #### 5 8410-2 ####[facility]ORATORYCLIA [id number] [address] Nucleated RBC (Bld) [#/Vol] 10*3/uL Normal <0.01 [facility] Comment on above: Order Comment: Speci men Type: BLOOD SPECIMENOrdering Facility: [facility] Address: [address] [place] [address] Performed By: #### 5 8410-2 ####[facility]ORATORYCLIA [id number] [address] [place] Platelet mean volume (Bld) [Entitic vol] 8.9 fL Low 9.0-12.7 [facility] Comment on above: Order Comment: Speci men Type: BLOOD SPECIMENOrdering Facility: [facility] Address: [address] [place] [address] Performed By: #### 5 8410-2 ####[facility]ORATORYCLIA [id number] [address] [place] Platelets (Bld) [#/Vol] 388 10*3/uL Normal 150-400 [facility] Comment on above: Order Comment: Speci men Type: BLOOD SPECIMENOrdering Facility: [facility] Address: [address] [place] [address] Performed By: #### 5 8410-2 ####[facility]ORATORYCLIA [id number] [place] [address] [place] RBC (Bld) [#/Vol] 2.42 10*6/uL Low 3.90-5.20 [facility] Comment on above: Order Comment: Speci men Type: BLOOD SPECIMENOrdering Facility: [facility] Address: [address] [place], [place] [address] Performed By: #### 5 8410-2 ####[facility]ORATORYCLIA [id number] [place] [address] [place] WBC (Bld) [#/Vol] 16.58 10*3/uL High 3.70-11.00 [facility] Comment on above: Order Comment: Speci men Type: BLOOD SPECIMENOrdering Facility: [facility] Address: [address] [place] [address] Performed By: #### 5 8410-2 ####[facility]ORATORYCLIA [id number] [address] [place] THERAPY NTon 10-15-2021 THERAPY NT Normal [facility] Urinalysis complete panel (U )on 10-15-2021 Bacteria LM.HPF (Urine sed) [#/Area] Few Abnormal None Seen [facility] Comment on above: Order Comment: Speci men Type: URINE SPECIMENOrdering Facility: [facility] Address: [address] [place] [address] Performed By: #### 2 4356-8 ####[facility]ORATORYCLIA [id number] [address] Bilirubin Ql (U) Negative Normal Negative [facility] Comment on above: Order Comment: Speci men Type: URINE SPECIMENOrdering Facility: [facility] Address: [address] [place] [address] Performed By: #### 2 4356-8 ####[facility]CLIA [id number] [address] Clarity (Unsp spec) Clear Normal Clear [facility] Comment on above: Order Comment: Speci men Type: URINE SPECIMENOrdering Facility: [facility] Address: [address] [place] [address] Performed By: #### 2 4356-8 ####[facility]CLIA [id number] [address] Color (U) Light Yellow Normal yellow [facility] Comment on above: Order Comment: Speci men Type: URINE SPECIMENOrdering Facility: [facility] Address: [address] [place] [address] Performed By: #### 2 4356-8 ####[facility]ORATORYCLIA [id number] [address] Epithelial cells LM.HPF (Urine sed) [#/Area] Few Normal [facility] Comment on above: Order Comment: Speci men Type: URINE SPECIMENOrdering Facility: [facility] Address: [address] [place] [address] Result Comment: Few Performed By: #### 2 4356-8 ####[facility]ATORYCLIA [id number] [address] Glucose Test strip (U) [Mass/Vol] Negative Normal Negative [facility] Comment on above: Order Comment: Speci men Type: URINE SPECIMENOrdering Facility: [facility] Address: [address] [place] [address] Performed By: #### 2 4356-8 ####[facility]ORATORYCLIA [id number] [address] STATES OF [facility] Hemoglobin Ql (U) Negative Normal Negative [facility] Comment on above: Order Comment: Speci men Type: URINE SPECIMENOrdering Facility: [facility] Address: [address] [place] [address] Performed By: #### 2 4356-8 ####[facility]ORATORYCLIA [id number] [address] [place] Ketones Ql (U) Negative Normal Negative [facility] Comment on above: Order Comment: Speci men Type: URINE SPECIMENOrdering Facility: [facility] Address: [address] [place] [address] Performed By: #### 2 4356-8 ####[facility]ATORYCLIA [id number] [address] Leukocyte esterase Test strip Ql (U) 500 Karson/mL Abnormal Negative [facility] Comment on above: Order Comment: Speci men Type: URINE SPECIMENOrdering Facility: [facility] Address: [address] [place] [address] Performed By: #### 2 4356-8 ####[facility]ATORYCLIA [id number] [address] [place] Nitrite Ql (U) 1+ Abnormal Negative [facility] Comment on above: Order Comment: Speci men Type: URINE SPECIMENOrdering Facility: [facility] Address: [address] [place] [address] Performed By: #### 2 4356-8 ####[facility]ORATORYCLIA [id number] [address] [place] pH (U) 7.5 [pH] Normal 5.0-8.0 [facility] Comment on above: Order Comment: Speci men Type: URINE SPECIMENOrdering Facility: [facility] Address: [address] [place] [address] Performed By: #### 2 4356-8 ####[facility] LABORATORYCLIA [id number] [address] [place] Protein (U) [Mass/Vol] Negative Normal Negative [facility] Comment on above: Order Comment: Speci men Type: URINE SPECIMENOrdering Facility: [facility] Address: [address] [place] [address] Performed By: #### 2 4356-8 ####[facility] LABORATORYCLIA [id number] [address] [place] RBC LM.HPF (Urine sed) [#/Area] 6-10 /HPF Abnormal 0-3 /HPF [facility] Comment on above: Order Comment: Speci men Type: URINE SPECIMENOrdering Facility: [facility] Address: [address] [place] [address] Performed By: #### 2 4356-8 ####[facility] LABORATORYCLIA [id number] [address] [place] Specific gravity (U) [Rel density] 1.007 Normal 1.005-1.030 [facility] Comment on above: Order Comment: Speci men Type: URINE SPECIMENOrdering Facility: [facility] Address: [address] [place] [address] Performed By: #### 2 4356-8 ####[facility] LABORATORYCLIA [id number] [address] Urobilinogen Ql (U) Normal Normal Negative [facility] Comment on above: Order Comment: Speci men Type: URINE SPECIMENOrdering Facility: [facility] Address: [address] [place] [address] Performed By: #### 2 4356-8 ####[facility] LABORATORYCLIA [id number] [address] STATES [facility] WBC LM.HPF (Urine sed) [#/Area] /[HPF] Abnormal 0-5 /HPF [facility] Comment on above: Order Comment: Speci men Type: URINE SPECIMENOrdering Facility: [facility] Address: [address] [place] [address] Performed By: #### 2 4356-8 ####[facility] LABORATORYCLIA [id number] [address] [place] Urinalysis complete pnl Uron 10-15-2021 Urinalysis complete panel (U) Abnormal [facility] Comment on above: Order Comment: Speci men Type: URINE SPECIMENOrdering Facility: [facility] Address: [address] [place] [address] Performed By: #### 2 4356-8 ####[facility]ORATORYCLIA [id number] [address] [place] Basic metabolic 2000 panelon 10-14-2021 Anion gap [Moles/Vol] 11 mmol/L Normal 9-18 [facility] Comment on above: Order Comment: Speci men Type: BLOOD SPECIMENOrdering Facility: [facility] Address: [address] [place] [address] Performed By: #### 2 4321-2 ####[facility]ORATORYCLIA [id number] [address] [place] Calcium [Mass/Vol] 7.1 mg/dL Low 8.5-10.2 [facility] Comment on above: Order Comment: Speci men Type: BLOOD SPECIMENOrdering Facility: [facility] Address: [address] [place] [address] Performed By: #### 2 4321-2 ####[facility]ORATORYCLIA [id number] [address] OF [facility] Chloride [Moles/Vol] 100 mmol/L Normal 97-105 [facility] Comment on above: Order Comment: Speci men Type: BLOOD SPECIMENOrdering Facility: [facility] Address: [address] [place] [address] Performed By: #### 2 4321-2 ####[facility]ORATORYCLIA [id number] [address] [place] CO2 [Moles/Vol] 25 mmol/L Normal 22-30 [facility] Comment on above: Order Comment: Speci men Type: BLOOD SPECIMENOrdering Facility: [facility] Address: [address] [place] [address] Performed By: #### 2 4321-2 ####[facility]CL[facility] [id number] [address] OF [facility] Creatinine [Mass/Vol] 0.44 mg/dL Low 0.58-0.96 [facility] Comment on above: Order Comment: Speci men Type: BLOOD SPECIMENOrdering Facility: [facility] Address: [address] [place] [address] Performed By: #### 2 4321-2 ####[facility]ORATORYCLIA [id number] [address] ESTIMATED GLOMERULAR FILTRATION RATE 102 mL/min/1.73m??? Normal >=60 [facility] Comment on above: Order Comment: Speci men Type: BLOOD SPECIMENOrdering Facility: [facility] Address: [address] [place] [address] Result Comment: Lulu mated Glomerular Filtration Rate [...] actual GFR. Performed By: #### 2 4321-2 ####[facility]ORATORYCLIA [id number] [place] [address] [place] Glucose [Mass/Vol] 116 mg/dL High 74-99 [facility] Comment on above: Order Comment: Sharath lozano Type: BLOOD SPECIMENOrdering Facility: [facility] Address: [address] [place] [address] Result Comment: The [place] [employer] (ADA) provides guidance for cutoff [...] Standards of Medical Care in Diabetes 2016, [place] [employer]. Diabetes Care. 2016.39(Suppl 1). Performed By: #### 2 4321-2 ####[facility]ORATORYCLIA [id number] [place] [address] [place] Potassium [Moles/Vol] 3.8 mmol/L Normal 3.7-5.1 [facility] Comment on above: Order Comment: Sharath lozano Type: BLOOD SPECIMENOrdering Facility: [facility] Address: [address] [place] [address] Performed By: #### 2 4321-2 ####[facility]ORATORYCLIA [id number] [place] [address] [place] Sodium [Moles/Vol] 136 mmol/L Normal 136-144 [facility] Comment on above: Order Comment: Sharath lozano Type: BLOOD SPECIMENOrdering Facility: [facility] Address: [address] [place] [address] Performed By: #### 2 4321-2 ####[facility]ORATORYCLIA [id number] [place] [address] [place] Urea nitrogen [Mass/Vol] 9 mg/dL Normal 7-21 [facility] Comment on above: Order Comment: Speci men Type: BLOOD SPECIMENOrdering Facility: [facility] Address: [address] [place] [address] Performed By: #### 2 4321-2 ####[facility]ORATORYCLIA [id number] [address] STATES [facility] CBC panel Auto (Bld)on 10-14 Erythrocyte distribution width (RBC) [Ratio] 13.7 % Normal 11.5-15.0 [facility] Comment on above: Order Comment: Speci men Type: BLOOD SPECIMENOrdering Facility: [facility] Address: [address] [place] [address] Performed By: #### 5 8410-2 ####[facility]ORATORYCLIA [id number] [address] STATES [facility] Hematocrit (Bld) [Volume fraction] 25.1 % Low 36.0-46.0 [facility] Comment on above: Order Comment: Speci men Type: BLOOD SPECIMENOrdering Facility: [facility] Address: [address] [place] [address] Performed By: #### 5 8410-2 ####[facility]ORATORYCLIA [id number] [address] Hemoglobin (Bld) [Mass/Vol] 8.4 g/dL Low 11.5-15.5 [facility] Comment on above: Order Comment: Speci men Type: BLOOD SPECIMENOrdering Facility: [facility] Address: [address] [place] [address] Performed By: #### 5 8410-2 ####[facility]ORATORYCLIA [id number] [address] MCH (RBC) [Entitic mass] 32.3 pg Normal 26.0-34.0 [facility] Comment on above: Order Comment: Speci men Type: BLOOD SPECIMENOrdering Facility: [facility] Address: [address] [place] [address] Performed By: #### 5 8410-2 ####[facility]ORATORYCLIA [id number] [address] STATES [facility] MCHC (RBC) [Mass/Vol] 33.5 g/dL Normal 30.5-36.0 [facility] Comment on above: Order Comment: Speci men Type: BLOOD SPECIMENOrdering Facility: [facility] Address: [address] [place] [address] Performed By: #### 5 8410-2 ####[facility]ORATORYCLIA [id number] [address] MCV (RBC) [Entitic vol] 96.5 fL Normal 80.0-100.0 [facility] Comment on above: Order Comment: Speci men Type: BLOOD SPECIMENOrdering Facility: [facility] Address: [address] [place] [address] Performed By: #### 5 8410-2 ####[facility]ORATORYCLIA [id number] [address] Nucleated RBC (Bld) [#/Vol] 10*3/uL Normal <0.01 [facility] Comment on above: Order Comment: Speci men Type: BLOOD SPECIMENOrdering Facility: [facility] Address: [address] [place] [address] Performed By: #### 5 8410-2 ####[facility]ORATORYCLIA [id number] [address] Platelet mean volume (Bld) [Entitic vol] 8.9 fL Low 9.0-12.7 [facility] Comment on above: Order Comment: Speci men Type: BLOOD SPECIMENOrdering Facility: [facility] Address: [address] [place] [address] Performed By: #### 5 8410-2 ####[facility]ORATORYCLIA [id number] [address] [place] Platelets (Bld) [#/Vol] 405 10*3/uL High 150-400 [facility] Comment on above: Order Comment: Speci men Type: BLOOD SPECIMENOrdering Facility: [facility] Address: [address] [place] [address] Performed By: #### 5 8410-2 ####[facility]ORATORYCLIA [id number] [address] OF [facility] RBC (Bld) [#/Vol] 2.60 10*6/uL Low 3.90-5.20 [facility] Comment on above: Order Comment: Speci men Type: BLOOD SPECIMENOrdering Facility: [facility] Address: [address] [place] [address] Performed By: #### 5 8410-2 ####[facility]ORATORYCLIA [id number] [address] WBC (Bld) [#/Vol] 16.86 10*3/uL High 3.70-11.00 [facility] Comment on above: Order Comment: Speci men Type: BLOOD SPECIMENOrdering Facility: [facility] Address: [address] [place] [address] Performed By: #### 5 8410-2 ####[facility]ORATORYCLIA [id number] [address] [place] TSH SerPl-aCncon 10-14-2021 TSH Qn 1.610 m[IU]/L Normal 0.270-4.200 [facility] Comment on above: Order Comment: Speci men Type: BLOOD SPECIMENOrdering Facility: [facility] Address: [address] [place] [address] Performed By: #### 3 016-3 ####[facility]ORATORYCLIA [id number] [address] OF [facility] Vit B12 SerPl-mCncon 022 Cobalamin (Vitamin B12) [Mass/Vol] 1299 pg/mL High 232-1,245 [facility] Comment on above: Order Comment: Speci men Type: BLOOD SPECIMENOrdering Facility: [facility] Address: [address] [place], [place] [address] Performed By: #### 2 132-9 ####[facility]ORATORYCLIA [id number] [place] [address] [place] ALLIED HEALTHon 10-13-2021 ALLIED HEALTH Normal [facility] ALLIED HEALTH Normal [facility] ALLIED HEALTH Normal [facility] Basic metabolic 2000 panelon 10-13-2021 Anion gap [Moles/Vol] 11 mmol/L Normal 9-18 [facility] Comment on above: Order Comment: Speci men Type: BLOOD SPECIMENOrdering Facility: [facility] Address: [address] [place] [address] Performed By: #### 2 4321-2 ####[facility]ORATORYCLIA [id number] [place] [address] [place] Calcium [Mass/Vol] 7.3 mg/dL Low 8.5-10.2 [facility] Comment on above: Order Comment: Speci men Type: BLOOD SPECIMENOrdering Facility: [facility] Address: [address] [place] [address] Performed By: #### 2 4321-2 ####[facility]ORATORYCLIA [id number] [place] [address] [place] Chloride [Moles/Vol] 99 mmol/L Normal 97-105 [facility] Comment on above: Order Comment: Speci men Type: BLOOD SPECIMENOrdering Facility: [facility] Address: [facility] [place] [address] Performed By: #### 2 4321-2 ####[facility]ORATORYCLIA [id number] [place] [address] [place] CO2 [Moles/Vol] 24 mmol/L Normal 22-30 [facility] Comment on above: Order Comment: Speci men Type: BLOOD SPECIMENOrdering Facility: [facility] Address: [address] [place] [address] Performed By: #### 2 4321-2 ####[facility]ORATORYCLIA [id number] [address] OF [facility] Creatinine [Mass/Vol] 0.46 mg/dL Low 0.58-0.96 [facility] Comment on above: Order Comment: Cathymoe lozano Type: BLOOD SPECIMENOrdering Facility: [facility] Address: [address] [place] [address] Performed By: #### 2 4321-2 ####[facility]ORATORYCLIA [id number] [address] ESTIMATED GLOMERULAR FILTRATION RATE 101 mL/min/1.73m??? Normal >=60 [facility] Comment on above: Order Comment: Sharath marta Type: BLOOD SPECIMENOrdering Facility: [facility] Address: [address] [place] [address] Result Comment: Lulu mated Glomerular Filtration Rate [...] actual GFR. Performed By: #### 2 4321-2 ####[facility]ATORYCLIA [id number] [address] STATES OF [facility] Glucose [Mass/Vol] 121 mg/dL High 74-99 [facility] Comment on above: Order Comment: Cathymoe lozano Type: BLOOD SPECIMENOrdering Facility: [facility] Address: [address] [place] [address] Result Comment: The [place] [employer] (ADA) provides guidance for cutoff [...] Standards of Medical Care in Diabetes 2016, [place] [employer]. Diabetes Care. 2016.39(Suppl 1). Performed By: #### 2 4321-2 ####[facility]ATORYCLIA [id number] [address] STATES OF [facility] Potassium [Moles/Vol] 3.6 mmol/L Low 3.7-5.1 [facility] Comment on above: Order Comment: Speci men Type: BLOOD SPECIMENOrdering Facility: [facility] Address: [address] [place] [address] Performed By: #### 2 4321-2 ####[facility]ORATORYCLIA [id number] [address] STATES OF [facility] Sodium [Moles/Vol] 134 mmol/L Low 136-144 [facility] Comment on above: Order Comment: Speci men Type: BLOOD SPECIMENOrdering Facility: [facility] Address: [address] [place] [address] Performed By: #### 2 4321-2 ####[facility]ORATORYCLIA [id number] [address] STATES [facility] Urea nitrogen [Mass/Vol] 9 mg/dL Normal 7-21 [facility] Comment on above: Order Comment: Speci men Type: BLOOD SPECIMENOrdering Facility: [facility] Address: [address] [place] [address] Performed By: #### 2 4321-2 ####[facility]ORATORYCLIA [id number] [address] OF [facility] CASE MANAGEMon 10-13-2021 CASE MANAGEM Normal [facility] CBC panel Auto (Bld)on 10-13 Erythrocyte distribution width (RBC) [Ratio] 13.5 % Normal 11.5-15.0 [facility] Comment on above: Order Comment: Speci men Type: BLOOD SPECIMENOrdering Facility: [facility] Address: [address] [place] [address] Performed By: #### 5 8410-2 ####[facility]ORATORYCLIA [id number] [address] OF [facility] Hematocrit (Bld) [Volume fraction] 25.6 % Low 36.0-46.0 [facility] Comment on above: Order Comment: Speci men Type: BLOOD SPECIMENOrdering Facility: [facility] Address: [address] [place] [address] Performed By: #### 5 8410-2 ####[facility]ATORYCLIA [id number] [address] OF [facility] Hemoglobin (Bld) [Mass/Vol] 8.4 g/dL Low 11.5-15.5 [facility] Comment on above: Order Comment: Speci men Type: BLOOD SPECIMENOrdering Facility: [facility] Address: [address] [place] [address] Performed By: #### 5 8410-2 ####[facility]ORATORYCLIA [id number] [address] MCH (RBC) [Entitic mass] 32.1 pg Normal 26.0-34.0 [facility] Comment on above: Order Comment: Speci men Type: BLOOD SPECIMENOrdering Facility: [facility] Address: [address] [place] [address] Performed By: #### 5 8410-2 ####[facility]ORATORYCLIA [id number] [address] STATES OF [facility] MCHC (RBC) [Mass/Vol] 32.8 g/dL Normal 30.5-36.0 [facility] Comment on above: Order Comment: Speci men Type: BLOOD SPECIMENOrdering Facility: [facility] Address: [address] [place] [address] Performed By: #### 5 8410-2 ####[facility]ORATORYCLIA [id number] [address] MCV (RBC) [Entitic vol] 97.7 fL Normal 80.0-100.0 [facility] Comment on above: Order Comment: Speci men Type: BLOOD SPECIMENOrdering Facility: [facility] Address: [address] Performed By: #### 5 8410-2 ####[facility]ORATORYCLIA [id number] [address] STATES [facility] Nucleated RBC (Bld) [#/Vol] 10*3/uL Normal <0.01 [facility] Comment on above: Order Comment: Speci men Type: BLOOD SPECIMENOrdering Facility: [facility] Address: [address] [place] [address] Performed By: #### 5 8410-2 ####[facility]ATORYCLIA [id number] [address] [place] Platelet mean volume (Bld) [Entitic vol] 9.4 fL Normal 9.0-12.7 [facility] Comment on above: Order Comment: Speci men Type: BLOOD SPECIMENOrdering Facility: [facility] Address: [address] [place] [address] Performed By: #### 5 8410-2 ####[facility]ORATORYCLIA [id number] [address] [place] Platelets (Bld) [#/Vol] 387 10*3/uL Normal 150-400 [facility] Comment on above: Order Comment: Speci men Type: BLOOD SPECIMENOrdering Facility: [facility] Address: [address] [place] [address] Performed By: #### 5 8410-2 ####[facility]ORATORYCLIA [id number] [address] [place] RBC (Bld) [#/Vol] 2.62 10*6/uL Low 3.90-5.20 [facility] Comment on above: Order Comment: Speci men Type: BLOOD SPECIMENOrdering Facility: [facility] Address: [address] [place] [address] Performed By: #### 5 8410-2 ####[facility]ORATORYCLIA [id number] [place] [address] [place] WBC (Bld) [#/Vol] 16.34 10*3/uL High 3.70-11.00 [facility] Comment on above: Order Comment: Speci men Type: BLOOD SPECIMENOrdering Facility: [facility] Address: [address] [place] [address] Performed By: #### 5 8410-2 ####[facility]ORATORYCLIA [id number] [address] [place] CONSULTon 10-13-2021 CONSULT Normal [facility] NUTRITIONon 10-13-2021 NUTRITION Normal [facility] THERAPY NTon 10-13-2021 THERAPY NT Normal [facility] XR CHEST 1V FRONTALon 2021 XR CHEST 1V FRONTAL Normal [facility] XR CHEST 2V FRONTAL/LATon XR CHEST 2V FRONTAL/LAT Normal A [facility] ALLIED HEALTHon 10-12-2021 ALLIED HEALTH Normal [facility] Basic metabolic 2000 panelon 10-12-2021 Anion gap [Moles/Vol] 10 mmol/L Normal 9-18 [facility] Comment on above: Order Comment: Speci men Type: BLOOD SPECIMENOrdering Facility: [facility] Address: [address] [place] [address] Performed By: #### 2 4321-2 ####[facility]ORATORYCLIA [id number] [place] [address] [place] Calcium [Mass/Vol] 7.2 mg/dL Low 8.5-10.2 [facility] Comment on above: Order Comment: Speci men Type: BLOOD SPECIMENOrdering Facility: [facility] Address: [address] [place] [address] Performed By: #### 2 4321-2 ####[facility]ORATORYCLIA [id number] [place] [address] [place] Chloride [Moles/Vol] 95 mmol/L Low 97-105 [facility] Comment on above: Order Comment: Speci men Type: BLOOD SPECIMENOrdering Facility: [facility] Address: [address] [place] [address] Performed By: #### 2 4321-2 ####[facility]ORATORYCLIA [id number] [address] STATES OF [facility] CO2 [Moles/Vol] 26 mmol/L Normal 22-30 [facility] Comment on above: Order Comment: Speci men Type: BLOOD SPECIMENOrdering Facility: [facility] Address: [address] [place] [address] Performed By: #### 2 4321-2 ####[facility]ORATORYCLIA [id number] [address] STATES OF [facility] Creatinine [Mass/Vol] 0.38 mg/dL Low 0.58-0.96 [facility] Comment on above: Order Comment: Speci men Type: BLOOD SPECIMENOrdering Facility: [facility] Address: [address] [place] [address] Performed By: #### 2 4321-2 ####[facility]PITALIA [id number] [address] ESTIMATED GLOMERULAR FILTRATION RATE 105 mL/min/1.73m??? Normal >=60 [facility] Comment on above: Order Comment: Speci men Type: BLOOD SPECIMENOrdering Facility: [facility] Address: [address] [place] [address] Result Comment: Lulu mated Glomerular Filtration Rate [...] actual GFR. Performed By: #### 2 4321-2 ####[facility]ORATORYCLIA [id number] [address] OF [facility] Glucose [Mass/Vol] 111 mg/dL High 74-99 [facility] Comment on above: Order Comment: Speci men Type: BLOOD SPECIMENOrdering Facility: [facility] Address: [address] [place] [address] Result Comment: The [place] [employer] (ADA) provides guidance for cutoff [...] Standards of Medical Care in Diabetes 2016, [place] [employer]. Diabetes Care. 2016.39(Suppl 1). Performed By: #### 2 4321-2 ####[facility]ORATORYCLIA [id number] [place] [address] [place] Potassium [Moles/Vol] 3.4 mmol/L Low 3.7-5.1 [facility] Comment on above: Order Comment: Speci men Type: BLOOD SPECIMENOrdering Facility: [facility] Address: [address] [place] [address] Performed By: #### 2 1-2 ####[facility]ORATORYCLIA [id number] [place] [address] [place] Sodium [Moles/Vol] 131 mmol/L Low 136-144 [facility] Comment on above: Order Comment: Speci men Type: BLOOD SPECIMENOrdering Facility: [facility] Address: [address] [place] [address] Performed By: #### 2 4321-2 ####[facility]ORATORYCLIA [id number] [place] [address] [place] Urea nitrogen [Mass/Vol] 10 mg/dL Normal 7-21 [facility] Comment on above: Order Comment: Speci men Type: BLOOD SPECIMENOrdering Facility: [facility] Address: [address] [place] [address] Performed By: #### 2 4321-2 ####[facility]ORATORYCLIA [id number] [address] [place] CASE MANAGEMon 10-12-2021 CASE MANAGEM Normal [facility] CBC panel Auto (Bld)on 10-12 Erythrocyte distribution width (RBC) [Ratio] 13.6 % Normal 11.5-15.0 [facility] Comment on above: Order Comment: Speci men Type: BLOOD SPECIMENOrdering Facility: [facility] Address: [address] [place] [address] Performed By: #### 5 8410-2 ####[facility] LABORATORYCLIA [id number] [address] Hematocrit (Bld) [Volume fraction] 24.8 % Low 36.0-46.0 [facility] Comment on above: Order Comment: Speci men Type: BLOOD SPECIMENOrdering Facility: [facility] Address: [address] [place] [address] Performed By: #### 5 8410-2 ####[facility] LABORATORYCLIA [id number] [address] [place] Hemoglobin (Bld) [Mass/Vol] 8.6 g/dL Low 11.5-15.5 [facility] Comment on above: Order Comment: Speci men Type: BLOOD SPECIMENOrdering Facility: [facility] Address: [address] [place] [address] Performed By: #### 5 8410-2 ####[facility] LABORATORYCLIA [id number] [address] [place] MCH (RBC) [Entitic mass] 32.8 pg Normal 26.0-34.0 [facility] Comment on above: Order Comment: Speci men Type: BLOOD SPECIMENOrdering Facility: [facility] Address: [address] [place] [address] Performed By: #### 5 8410-2 ####[facility] LABORATORYCLIA [id number] [address] [place] MCHC (RBC) [Mass/Vol] 34.7 g/dL Normal 30.5-36.0 [facility] Comment on above: Order Comment: Speci men Type: BLOOD SPECIMENOrdering Facility: [facility] Address: [address] [place] [address] Performed By: #### 5 8410-2 ####[facility] LABORATORYCLIA [id number] [address] STATES OF [facility] MCV (RBC) [Entitic vol] 94.7 fL Normal 80.0-100.0 [facility] Comment on above: Order Comment: Speci men Type: BLOOD SPECIMENOrdering Facility: [facility] Address: [address] [place] [address] Performed By: #### 5 8410-2 ####[facility]ORATORYCLIA [id number] [address] [place] Nucleated RBC (Bld) [#/Vol] 10*3/uL Normal <0.01 [facility] Comment on above: Order Comment: Speci men Type: BLOOD SPECIMENOrdering Facility: [facility] Address: [address] [place] [address] Performed By: #### 5 8410-2 ####[facility]ATORYCLIA [id number] [address] [place] Platelet mean volume (Bld) [Entitic vol] 9.5 fL Normal 9.0-12.7 [facility] Comment on above: Order Comment: Speci men Type: BLOOD SPECIMENOrdering Facility: [facility] Address: [address] [place], [place] [address] Performed By: #### 5 8410-2 ####[facility]ORATORYCLIA [id number] [address] [place] Platelets (Bld) [#/Vol] 338 10*3/uL Normal 150-400 [facility] Comment on above: Order Comment: Speci men Type: BLOOD SPECIMENOrdering Facility: [facility] Address: [address] [place] [address] Performed By: #### 5 8410-2 ####[facility]ORATORYCLIA [id number] [address] OF [facility] RBC (Bld) [#/Vol] 2.62 10*6/uL Low 3.90-5.20 [facility] Comment on above: Order Comment: Speci men Type: BLOOD SPECIMENOrdering Facility: [facility] Address: [address] [place] [address] Performed By: #### 5 8410-2 ####[facility]ORATORYCLIA [id number] [address] WBC (Bld) [#/Vol] 15.12 10*3/uL High 3.70-11.00 [facility] Comment on above: Order Comment: Speci men Type: BLOOD SPECIMENOrdering Facility: [facility] Address: [address] [place] [address] Performed By: #### 5 8410-2 ####[facility]ORATORYCLIA [id number] [address] CNPNon 10-12-2021 CNPN Normal [facility] THERAPY NTon 10-12-2021 THERAPY NT Normal [facility] XR CHEST 1V FRONTALon 2021 XR CHEST 1V FRONTAL Normal [facility] ALLIED HEALTHon 10-11-2021 ALLIED HEALTH Normal [facility] ALLIED HEALTH Normal [facility] ALLIED HEALTH Normal [facility] ALLIED HEALTH Normal [facility] ANES POSTPROC EVALon 022 ANES POSTPROC EVAL Normal [facility] Bacteria Bld Culton 10-12-19 22 Bacteria identified Cx Nom (Bld) CULTURE, BLOOD: No growth 5 days Normal [facility] Comment on above: Performed By: #### 6 00-7 ####[facility]ORATORYCLIA [id number] [address] Bacteria identified Cx Nom (Bld) CULTURE, BLOOD: No growth 5 days Normal [facility] Comment on above: Performed By: #### 6 00-7 ####[facility]ORATORYCLIA [id number] [place] [address] [place] Basic metabolic 2000 panelon 10-11-2021 Anion gap [Moles/Vol] 9 mmol/L Normal 9-18 [facility] Comment on above: Order Comment: Speci men Type: BLOOD SPECIMENOrdering Facility: [facility] Address: [address] [place] [address] Performed By: #### 2 4321-2 ####[facility]ORATORYCLIA [id number] [place] [address] [place] Calcium [Mass/Vol] 7.5 mg/dL Low 8.5-10.2 [facility] Comment on above: Order Comment: Speci men Type: BLOOD SPECIMENOrdering Facility: [facility] Address: [address] [place] [address] Performed By: #### 2 4321-2 ####[facility]ORATORYCLIA [id number] [address] [place] Chloride [Moles/Vol] 94 mmol/L Low 97-105 [facility] Comment on above: Order Comment: Speci men Type: BLOOD SPECIMENOrdering Facility: [facility] Address: [address] [place] [address] Performed By: #### 2 4321-2 ####[facility]ORATORYCLIA [id number] [place] [address] [place] CO2 [Moles/Vol] 27 mmol/L Normal 22-30 [facility] Comment on above: Order Comment: Speci men Type: BLOOD SPECIMENOrdering Facility: [facility] Address: [address] [place] [address] Performed By: #### 2 4321-2 ####[facility]ATORYCLIA [id number] [place] [address] [place] Creatinine [Mass/Vol] 0.46 mg/dL Low 0.58-0.96 [facility] Comment on above: Order Comment: Speci men Type: BLOOD SPECIMENOrdering Facility: [facility] Address: [address] [place] [address] Performed By: #### 2 4321-2 ####[facility] H[facility]PITALIA [id number] [address] ESTIMATED GLOMERULAR FILTRATION RATE 101 mL/min/1.73m??? Normal >=60 [facility] Comment on above: Order Comment: Sharath lozano Type: BLOOD SPECIMENOrdering Facility: [facility] Address: [address] [place] [address] Result Comment: Lulu mated Glomerular Filtration Rate [...] By: #### 2 4321-2 ####[facility] H[facility]PITALIA [id number] [place] [address] [place] Glucose [Mass/Vol] 125 mg/dL High 74-99 [facility] Comment on above: Order Comment: Sharath lozano Type: BLOOD SPECIMENOrdering Facility: [facility] Address: [address] [place] [address] Result Comment: The [place] [employer] (ADA) provides guidance for cutoff [...] Standards of Medical Care in Diabetes 2016, [place] [employer]. Diabetes Care. 2016.39(Suppl 1). Performed By: #### 2 4321-2 ####[facility]ORATORYCLIA [id number] [address] [place] Potassium [Moles/Vol] 3.8 mmol/L Normal 3.7-5.1 [facility] Comment on above: Order Comment: Speci men Type: BLOOD SPECIMENOrdering Facility: [facility] Address: [address] [place] [address] Performed By: #### 2 4321-2 ####[facility]ORATORYCLIA [id number] [address] STATES OF [facility] Sodium [Moles/Vol] 130 mmol/L Low 136-144 [facility] Comment on above: Order Comment: Speci men Type: BLOOD SPECIMENOrdering Facility: [facility] Address: [address] [place] [address] Performed By: #### 2 4321-2 ####[facility]ORATORYCLIA [id number] [address] STATES [facility] Urea nitrogen [Mass/Vol] 7 mg/dL Normal 7-21 [facility] Comment on above: Order Comment: Speci men Type: BLOOD SPECIMENOrdering Facility: [facility] Address: [address] [place] [address] Performed By: #### 2 4321-2 ####[facility]ORATORYCLIA [id number] [address] STATES OF [facility] CBC panel Auto (Bld)on 10-11 Erythrocyte distribution width (RBC) [Ratio] 13.5 % Normal 11.5-15.0 [facility] Comment on above: Order Comment: Speci men Type: BLOOD SPECIMENOrdering Facility: [facility] Address: [address] [place] [address] Performed By: #### 5 8410-2 ####[facility]ORATORYCLIA [id number] [address] Hematocrit (Bld) [Volume fraction] 25.4 % Low 36.0-46.0 [facility] Comment on above: Order Comment: Speci men Type: BLOOD SPECIMENOrdering Facility: [facility] Address: [address] [place] [address] Performed By: #### 5 8410-2 ####[facility]ORATORYCLIA [id number] [address] Hemoglobin (Bld) [Mass/Vol] 8.8 g/dL Low 11.5-15.5 [facility] Comment on above: Order Comment: Speci men Type: BLOOD SPECIMENOrdering Facility: [facility] Address: [address] [place] [address] Performed By: #### 5 8410-2 ####[facility]ORATORYCLIA [id number] [address] MCH (RBC) [Entitic mass] 32.5 pg Normal 26.0-34.0 [facility] Comment on above: Order Comment: Speci men Type: BLOOD SPECIMENOrdering Facility: [facility] Address: [address] [place] [address] Performed By: #### 5 8410-2 ####[facility]ORATORYCLIA [id number] [address] MCHC (RBC) [Mass/Vol] 34.6 g/dL Normal 30.5-36.0 [facility] Comment on above: Order Comment: Speci men Type: BLOOD SPECIMENOrdering Facility: [facility] Address: [address] [place] [address] Performed By: #### 5 8410-2 ####[facility]ORATORYCLIA [id number] [address] MCV (RBC) [Entitic vol] 93.7 fL Normal 80.0-100.0 [facility] Comment on above: Order Comment: Speci men Type: BLOOD SPECIMENOrdering Facility: [facility] Address: [address] [place] [address] Performed By: #### 5 8410-2 ####[facility]ORATORYCLIA [id number] [place] [address] [place] Nucleated RBC (Bld) [#/Vol] 10*3/uL Normal <0.01 [facility] Comment on above: Order Comment: Speci men Type: BLOOD SPECIMENOrdering Facility: [facility] Address: [address] [place] [address] Performed By: #### 5 8410-2 ####[facility]ORATORYCLIA [id number] [place] [address] [place] Platelet mean volume (Bld) [Entitic vol] 9.7 fL Normal 9.0-12.7 [facility] Comment on above: Order Comment: Speci men Type: BLOOD SPECIMENOrdering Facility: [facility] Address: [address] [place] [address] Performed By: #### 5 8410-2 ####[facility]ATORYCLIA [id number] [address] [place] Platelets (Bld) [#/Vol] 310 10*3/uL Normal 150-400 [facility] Comment on above: Order Comment: Speci men Type: BLOOD SPECIMENOrdering Facility: [facility] Address: [address] [place] [address] Performed By: #### 5 8410-2 ####[facility]ORATORYCLIA [id number] [address] [place] RBC (Bld) [#/Vol] 2.71 10*6/uL Low 3.90-5.20 [facility] Comment on above: Order Comment: Speci men Type: BLOOD SPECIMENOrdering Facility: [facility] Address: [address] [place] [address] Performed By: #### 5 8410-2 ####[facility]ORATORYCLIA [id number] [place] [address] [place] WBC (Bld) [#/Vol] 19.17 10*3/uL High 3.70-11.00 [facility] Comment on above: Order Comment: Speci men Type: BLOOD SPECIMENOrdering Facility: [facility] Address: [address] [address] Performed By: #### 5 8410-2 ####[facility]ORATORYCLIA [id number] [address] [place] CONSULTon 10-11-2021 CONSULT HNO ID: [id number] Author: Corin Quinn MD Service: [facility] Author Type: Physician Type: Consults Filed: 10/11/2021 3:56 PM Note Text: Consul tdictated. No intervention Normal [facility] CONSULT Normal [facility] MRI BRAIN WO/W IVCONon 10-11 MRI BRAIN WO/W IVCON Normal [facility] SEPSIS LACTATEon 10-11-2021 Lactate [Moles/Vol] 1.0 mmol/L Normal 0.5-2.0 [facility] Comment on above: Order Comment: Speci men Type: BLOOD SPECIMENOrdering Facility: [facility] Address: [address] [place] [address] Performed By: #### S LACT ####[facility]ORATORYCLIA [id number] [address] THERAPY NTon 10-11-2021 THERAPY NT Normal [facility] THERAPY NT Normal [facility] XR CHEST 1V FRONTALon 2021 XR CHEST 1V FRONTAL Normal [facility] ALLIED HEALTHon 10-10-2021 ALLIED HEALTH Normal [facility] ALLIED HEALTH Normal [facility] Basic metabolic 2000 panelon 10-10-2021 Anion gap [Moles/Vol] 13 mmol/L Normal 9-18 [facility] Comment on above: Order Comment: Speci men Type: BLOOD SPECIMENOrdering Facility: [facility] Address: [address] [place] [address] Performed By: #### 2 4321-2, 2777-1, 48983-2 ####[facility]ORATORYCLIA [id number] [place] [address] [place] Calcium [Mass/Vol] 7.1 mg/dL Low 8.5-10.2 [facility] Comment on above: Order Comment: Speci men Type: BLOOD SPECIMENOrdering Facility: [facility] Address: [address] [place] [address] Performed By: #### 2 4321-2, 2776-04, ####[facility]ORATORYCLIA [id number] [place] [address] [place] Chloride [Moles/Vol] 96 mmol/L Low 97-105 [facility] Comment on above: Order Comment: Speci men Type: BLOOD SPECIMENOrdering Facility: [facility] Address: [address] [place] [address] Performed By: #### 2 4321-2, 2776-04, ####[facility]ORATORYCLIA [id number] [address] [place] CO2 [Moles/Vol] 23 mmol/L Normal 22-30 [facility] Comment on above: Order Comment: Speci men Type: BLOOD SPECIMENOrdering Facility: [facility] Address: [address] [place] [address] Performed By: #### 2 4321-2, 2776-04, ####[facility]ORATORYCLIA [id number] [address] STATES OF [facility] Creatinine [Mass/Vol] 0.52 mg/dL Low 0.58-0.96 [facility] Comment on above: Order Comment: Speci men Type: BLOOD SPECIMENOrdering Facility: [facility] Address: [address] [place] [address] Performed By: #### 2 4321-2, 2776-04, ####[facility]ORATORYCLIA [id number] [address] [place] ESTIMATED GLOMERULAR FILTRATION RATE 98 mL/min/1.73m??? Normal >=60 [facility] Comment on above: Order Comment: Speci men Type: BLOOD SPECIMENOrdering Facility: [facility] Address: [address] [place] [address] Result Comment: Lulu mated Glomerular Filtration Rate [...] GFR. Performed By: #### 2 4321-2, 2777-, ####[facility]ORATORYCLIA [id number] [place] [address] [place] Glucose [Mass/Vol] 126 mg/dL High 74-99 [facility] Comment on above: Order Comment: Sharath lozano Type: BLOOD SPECIMENOrdering Facility: [facility] Address: [address] [place], [place] [address] Result Comment: The [place] [employer] (ADA) provides guidance for cutoff [...] Standards of Medical Care in Diabetes 2016, [place] [employer]. Diabetes Care. 2016.39(Suppl 1). Performed By: #### 2 4321-2, 27710-20, ####[facility] LABORATORYIA [id number] [place] [address] [place] Potassium [Moles/Vol] 3.8 mmol/L Normal 3.7-5.1 [facility] Comment on above: Order Comment: Sharath lozano Type: BLOOD SPECIMENOrdering Facility: [facility] Address: [address] [place] [address] Performed By: #### 2 4321-2, 2777-, ####[facility]ORATORYCLIA [id number] [address] [place] Sodium [Moles/Vol] 132 mmol/L Low 136-144 [facility] Comment on above: Order Comment: Speci men Type: BLOOD SPECIMENOrdering Facility: [facility] Address: [address] [place] [address] Performed By: #### 2 4321-2, 2777-1, ####[facility]ORATORYCLIA [id number] [place] [address] [place] Urea nitrogen [Mass/Vol] 9 mg/dL Normal - [facility] Comment on above: Order Comment: Speci men Type: BLOOD SPECIMENOrdering Facility: [facility] Address: [address] [place] [address] Performed By: #### 2 4321-2, 2777-, ####[facility]ORATORYCLIA [id number] [address] [place] CASE MGT INIT ASSESon 2021 CASE MGT INIT ASSES Normal [facility] CBC panel Auto (Bld)on 10-10 Erythrocyte distribution width (RBC) [Ratio] 13.2 % Normal 11.5-15.0 [facility] Comment on above: Order Comment: Speci men Type: BLOOD SPECIMENOrdering Facility: [facility] Address: [address] [place] [address] Performed By: #### 5 8410-2 ####[facility]ATORYCLIA [id number] [address] [place] Hematocrit (Bld) [Volume fraction] 26.5 % Low 36.0-46.0 [facility] Comment on above: Order Comment: Speci men Type: BLOOD SPECIMENOrdering Facility: [facility] Address: [address] [place] [address] Performed By: #### 5 8410-2 ####[facility]ATORYCLIA [id number] [address] [place] Hemoglobin (Bld) [Mass/Vol] 9.3 g/dL Low 11.5-15.5 [facility] Comment on above: Order Comment: Speci men Type: BLOOD SPECIMENOrdering Facility: [facility] Address: [address] [place] [address] Performed By: #### 5 8410-2 ####[facility]ATORYCLIA [id number] [address] MCH (RBC) [Entitic mass] 33.0 pg Normal 26.0-34.0 [facility] Comment on above: Order Comment: Speci men Type: BLOOD SPECIMENOrdering Facility: [facility] Address: [address] [place] [address] Performed By: #### 5 8410-2 ####[facility]ATORYCLIA [id number] [address] MCHC (RBC) [Mass/Vol] 35.1 g/dL Normal 30.5-36.0 [facility] Comment on above: Order Comment: Speci men Type: BLOOD SPECIMENOrdering Facility: [facility] Address: [address] [place] [address] Performed By: #### 5 8410-2 ####[facility]ATORYCLIA [id number] [address] MCV (RBC) [Entitic vol] 94.0 fL Normal 80.0-100.0 [facility] Comment on above: Order Comment: Speci men Type: BLOOD SPECIMENOrdering Facility: [facility] Address: [address] [place] [address] Performed By: #### 5 8410-2 ####[facility]ATORYCLIA [id number] [address] Nucleated RBC (Bld) [#/Vol] 10*3/uL Normal <0.01 [facility] Comment on above: Order Comment: Speci men Type: BLOOD SPECIMENOrdering Facility: [facility] Address: [address] [place] [address] Performed By: #### 5 8410-2 ####[facility]ATORYCLIA [id number] [address] Platelet mean volume (Bld) [Entitic vol] 9.6 fL Normal 9.0-12.7 [facility] Comment on above: Order Comment: Speci men Type: BLOOD SPECIMENOrdering Facility: [facility] Address: [address] [place] [address] Performed By: #### 5 8410-2 ####[facility]ATORYCLIA [id number] [address] [place] Platelets (Bld) [#/Vol] 325 10*3/uL Normal 150-400 [facility] Comment on above: Order Comment: Speci men Type: BLOOD SPECIMENOrdering Facility: [facility] Address: [address] [place] [address] Performed By: #### 5 8410-2 ####[facility]ATORYCLIA [id number] [address] [place] RBC (Bld) [#/Vol] 2.82 10*6/uL Low 3.90-5.20 [facility] Comment on above: Order Comment: Speci men Type: BLOOD SPECIMENOrdering Facility: [facility] Address: [address] [place] [address] Performed By: #### 5 8410-2 ####[facility]ORATORYCLIA [id number] [place] [address] [place] WBC (Bld) [#/Vol] 14.72 10*3/uL High 3.70-11.00 [facility] Comment on above: Order Comment: Speci men Type: BLOOD SPECIMENOrdering Facility: [facility] Address: [address] [place] [address] Performed By: #### 5 8410-2 ####[facility]ORATORYCLIA [id number] [address] [place] CONSULTon 10-10-2021 CONSULT Normal [facility] Calcium.ionized [Moles/Vol]o n 10-10-2021 Calcium.ionized (BldV) [Mass/Vol] 0.96 mmol/L Low 1.08-1.30 [facility] Comment on above: Order Comment: Speci men Type: BLOOD SPECIMENOrdering Facility: [facility] Address: [address] [place] [address] Performed By: #### 1 995-0 ####[facility]ORATORYCLIA [id number] [place] [address] [place] Calcium.ionized adjusted to pH 7.4 (Bld) [Moles/Vol] 0.98 mmol/L Low 1.08-1.30 [facility] Comment on above: Order Comment: Speci men Type: BLOOD SPECIMENOrdering Facility: [facility] Address: [address] [place] [address] Performed By: #### 1 995-0 ####[facility]ORATORYCLIA [id number] [place] [address] [place] Magnesium SerPl-mCncon 10-10 Magnesium [Mass/Vol] 1.3 mg/dL Low 1.7-2.3 [facility] Comment on above: Order Comment: Speci men Type: BLOOD SPECIMENOrdering Facility: [facility] Address: [address] [place] [address] Performed By: #### 2 4321-2, 2777, 83638-8 ####[facility]ATORYCLIA [id number] [place] [address] [place] Phosphate SerPl-mCncon 10-10 Phosphate [Mass/Vol] 4.0 mg/dL Normal 2.7-4.8 [facility] Comment on above: Order Comment: Speci men Type: BLOOD SPECIMENOrdering Facility: [facility] Address: [address] [place] [address] Performed By: #### 2 4321-2, 2777-, 47008-3 ####[facility]ORATORYCLIA [id number] [address] [place] US KIDNEY/BLADDERon 10-11-19 US KIDNEY/BLADDER Normal [facility] Urinalysis complete panel (U )on 10-10-2021 Bilirubin Ql (U) Negative Normal Negative [facility] Comment on above: Order Comment: Speci men Type: URINE SPECIMENOrdering Facility: [facility] Address: [address] [place] [address] Performed By: #### 2 4356-8 ####[facility]ORATORYCLIA [id number] [address] [place] Clarity (Unsp spec) Clear Normal Clear [facility] Comment on above: Order Comment: Speci men Type: URINE SPECIMENOrdering Facility: [facility] Address: [address] [place] [address] Performed By: #### 2 4356-8 ####[facility] LABORATORYCLIA [id number] [address] OF [facility] Color (U) Colorless Normal yellow [facility] Comment on above: Order Comment: Speci men Type: URINE SPECIMENOrdering Facility: [facility] Address: [address] [place] [address] Performed By: #### 2 4356-8 ####[facility] LABORATORYCLIA [id number] [address] [place] Glucose Test strip (U) [Mass/Vol] Negative Normal Negative [facility] Comment on above: Order Comment: Speci men Type: URINE SPECIMENOrdering Facility: [facility] Address: [address] [address] Performed By: #### 2 4356-8 ####[facility] LABORATORYCLIA [id number] [address] [place] Hemoglobin Ql (U) Trace Abnormal Negative [facility] Comment on above: Order Comment: Speci men Type: URINE SPECIMENOrdering Facility: [facility] Address: [address] [place] [address] Performed By: #### 2 4356-8 ####[facility] LABORATORYCLIA [id number] [address] [place] Ketones Ql (U) Negative Normal Negative [facility] Comment on above: Order Comment: Speci men Type: URINE SPECIMENOrdering Facility: [facility] Address: [address] [place] [address] Performed By: #### 2 4356-8 ####[facility] LABORATORYCLIA [id number] [address] Leukocyte esterase Test strip Ql (U) 250 Karson/mL Abnormal Negative [facility] Comment on above: Order Comment: Speci men Type: URINE SPECIMENOrdering Facility: [facility] Address: [address] [place] [address] Performed By: #### 2 4356-8 ####[facility] LABORATORYCLIA [id number] [address] STATES [facility] Nitrite Ql (U) Negative Normal Negative [facility] Comment on above: Order Comment: Speci men Type: URINE SPECIMENOrdering Facility: [facility] Address: [address] [place] [address] Performed By: #### 2 4356-8 ####[facility] LABORATORYCLIA [id number] [address] [place] pH (U) 6.5 [pH] Normal 5.0-8.0 [facility] Comment on above: Order Comment: Speci men Type: URINE SPECIMENOrdering Facility: [facility] Address: [address] [place] [address] Performed By: #### 2 4356-8 ####[facility] LABORATORYCLIA [id number] [address] [place] Protein (U) [Mass/Vol] Negative Normal Negative [facility] Comment on above: Order Comment: Speci men Type: URINE SPECIMENOrdering Facility: [facility] Address: [address] [place] [address] Performed By: #### 2 4356-8 ####[facility] LABORATORYCLIA [id number] [address] STATES [facility] RBC LM.HPF (Urine sed) [#/Area] 3-5 /HPF Abnormal 0-3 /HPF [facility] Comment on above: Order Comment: Speci men Type: URINE SPECIMENOrdering Facility: [facility] Address: [address] [place] [address] Performed By: #### 2 4356-8 ####[facility] LABORATORYCLIA [id number] [address] [place] Specific gravity (U) [Rel density] 1.007 Normal 1.005-1.030 [facility] Comment on above: Order Comment: Speci men Type: URINE SPECIMENOrdering Facility: [facility] Address: [address] [place] [address] Performed By: #### 2 4356-8 ####[facility] LABORATORYCLIA [id number] [address] Urobilinogen Ql (U) Normal Normal Negative [facility] Comment on above: Order Comment: Speci men Type: URINE SPECIMENOrdering Facility: [facility] Address: [address] [place] [address] Performed By: #### 2 4356-8 ####[facility] LABORATORYCLIA [id number] [address] [place] WBC LM.HPF (Urine sed) [#/Area] 6-10 /HPF Abnormal 0-5 /HPF [facility] Comment on above: Order Comment: Speci men Type: URINE SPECIMENOrdering Facility: [facility] Address: [address] [place] [address] Performed By: #### 2 4356-8 ####[facility] LABORATORYCLIA [id number] [address] [place] XR CHEST 1V FRONTALon 2021 XR CHEST 1V FRONTAL Normal [facility] ALLIED HEALTHon 10-09-2021 ALLIED HEALTH Normal [facility] ALLIED HEALTH Normal [facility] ANES PRE-OPon 10-09-2021 ANES PRE-OP Normal [facility] ANES PRE-OP Normal [facility] ARTERIAL BLOOD GASESon 10-09 BASE DEFICIT, ARTERIAL -1 mmol/L Normal -2-0 [facility] Comment on above: Order Comment: Speci men Type: ARTERIAL BLOOD SPECIMENOrdering Facility: [facility] Address: [address] [place] [address] Performed By: #### A LLBG ####[facility] LABORATORYCLIA [id number] [address] [place] Body temperature 96.08 [degF] Normal [facility] Comment on above: Order Comment: Speci men Type: ARTERIAL BLOOD SPECIMENOrdering Facility: [facility] Address: [address] [place] [address] Performed By: #### A LLBG ####[facility] LABORATORYCLIA [id number] [place] [address] [place] CALCIUM IONIZED, PH CORRECTED 1.07 mmol/L Low 1.08-1.30 [facility] Comment on above: Order Comment: Speci men Type: ARTERIAL BLOOD SPECIMENOrdering Facility: [facility] Address: [address] [place] [address] Performed By: #### A LLBG ####[facility] LABORATORYCLIA [id number] [place] [address] [place] Calcium.ionized (BldV) [Mass/Vol] 1.07 mmol/L Low 1.08-1.30 [facility] Comment on above: Order Comment: Speci men Type: ARTERIAL BLOOD SPECIMENOrdering Facility: [facility] Address: [address] [place] [address] Performed By: #### A LLBG ####[facility] LABORATORYCLIA [id number] [address] [place] Carboxyhemoglobin (BldA) [Mass fraction] 1.2 % Normal 0.0-2.0 [facility] Comment on above: Order Comment: Speci men Type: ARTERIAL BLOOD SPECIMENOrdering Facility: [facility] Address: [address] [place] [address] Result Comment: Carb oxyhemoglobin Reference Range for Smokers: 2.0-8.0% Performed By: #### A LLBG ####[facility] LABORATORYCLIA [id number] [address] CO2 (Bld) [Partial pressure] 39 mm Hg Normal 36-46 [facility] Comment on above: Order Comment: Speci men Type: ARTERIAL BLOOD SPECIMENOrdering Facility: [facility] Address: [address] [place] [address] Performed By: #### A LLBG ####[facility] LABORATORYCLIA [id number] [address] CO2 [Moles/Vol] 22 mmol/L Normal 22-28 [facility] Comment on above: Order Comment: Speci men Type: ARTERIAL BLOOD SPECIMENOrdering Facility: [facility] Address: [address] [place] [address] Performed By: #### A LLBG ####[facility] LABORATORYCLIA [id number] [address] CO2 adjusted to patient's actual temperature (Bld) [Partial pressure] 36 mmHg Normal 36-46 [facility] Comment on above: Order Comment: Speci men Type: ARTERIAL BLOOD SPECIMENOrdering Facility: [facility] Address: [address] [place] [address] Performed By: #### A LLBG ####[facility] LABORATORYCLIA [id number] [address] [place] Glucose [Mass/Vol] 164 mg/dL High 60-105 [facility] Comment on above: Order Comment: Speci men Type: ARTERIAL BLOOD SPECIMENOrdering Facility: [facility] Address: [address] [place] [address] Performed By: #### A LLBG ####[facility] LABORATORYCLIA [id number] [place] [address] [place] HCO3 (Bld) [Moles/Vol] 24 mmol/L Normal 22-26 [facility] Comment on above: Order Comment: Speci men Type: ARTERIAL BLOOD SPECIMENOrdering Facility: [facility] Address: [address] [place] [address] Performed By: #### A LLBG ####[facility] LABORATORYCLIA [id number] [address] [place] Hematocrit (Bld) [Volume fraction] 32.9 % Low 36.0-46.0 [facility] Comment on above: Order Comment: Speci men Type: ARTERIAL BLOOD SPECIMENOrdering Facility: [facility] Address: [address] [place] [address] Performed By: #### A LLBG ####[facility] LABORATORYCLIA [id number] [address] [place] Hemoglobin (Bld) [Mass/Vol] 10.6 g/dL Low 11.5-15.5 [facility] Comment on above: Order Comment: Speci men Type: ARTERIAL BLOOD SPECIMENOrdering Facility: [facility] Address: [address] [place] [address] Performed By: #### A LLBG ####[facility] LABORATORYCLIA [id number] [address] [place] Methemoglobin (Bld) [Mass fraction] 1.1 % Normal 0.0-1.5 [facility] Comment on above: Order Comment: Speci men Type: ARTERIAL BLOOD SPECIMENOrdering Facility: [facility] Address: [address] [place] [address] Performed By: #### A LLBG ####[facility] LABORATORYCLIA [id number] [address] [place] O2 THERAPY RA=Room Air Normal [facility] Comment on above: Order Comment: Speci men Type: ARTERIAL BLOOD SPECIMENOrdering Facility: [facility] Address: [address] [place] [address] Performed By: #### A LLBG ####[facility] LABORATORYCLIA [id number] [address] [place] Oxygen (Bld) [Partial pressure] 75 mm Hg Low 85-95 [facility] Comment on above: Order Comment: Speci men Type: ARTERIAL BLOOD SPECIMENOrdering Facility: [facility] Address: [address] [place] [address] Performed By: #### A LLBG ####[facility] LABORATORYCLIA [id number] [address] [place] Oxygen adjusted to patient's actual temperature (Bld) [Partial pressure] 69 mmHg Low 85-95 [facility] Comment on above: Order Comment: Speci men Type: ARTERIAL BLOOD SPECIMENOrdering Facility: [facility] Address: [address] [place] [address] Performed By: #### A LLBG ####[facility] LABORATORYCLIA [id number] [address] [place] OXYGEN SATURATION, ARTERIAL 95 % Normal 95-98 [facility] Comment on above: Order Comment: Speci men Type: ARTERIAL BLOOD SPECIMENOrdering Facility: [facility] Address: [address] [place] [address] Performed By: #### A LLBG ####[facility] LABORATORYCLIA [id number] [address] [place] Oxyhemoglobin (BldA) [Mass fraction] 93 % Low 95-98 [facility] Comment on above: Order Comment: Speci men Type: ARTERIAL BLOOD SPECIMENOrdering Facility: [facility] Address: [address] [place] [address] Performed By: #### A LLBG ####[facility] LABORATORYCLIA [id number] [address] [place] pH (Bld) 7.40 [pH] Normal 7.35-7.45 [facility] Comment on above: Order Comment: Speci men Type: ARTERIAL BLOOD SPECIMENOrdering Facility: [facility] Address: [address] [place] [address] Performed By: #### A LLBG ####[facility] LABORATORYCLIA [id number] [address] [place] pH adjusted to patient's actual temperature (Bld) 7.42 Normal 7.35-7.45 [facility] Comment on above: Order Comment: Speci men Type: ARTERIAL BLOOD SPECIMENOrdering Facility: [facility] Address: [address] [place] [address] Performed By: #### A LLBG ####[facility] LABORATORYCLIA [id number] [address] [place] Potassium [Moles/Vol] 2.7 mmol/L Low 3.5-5.0 [facility] Comment on above: Order Comment: Speci men Type: ARTERIAL BLOOD SPECIMENOrdering Facility: [facility] Address: [address] [place] [address] Performed By: #### A LLBG ####[facility] LABORATORYCLIA [id number] [address] [place] Sodium [Moles/Vol] 133 mmol/L Low 136-144 [facility] Comment on above: Order Comment: Speci men Type: ARTERIAL BLOOD SPECIMENOrdering Facility: [facility] Address: [address] [place] [address] Performed By: #### A LLBG ####[facility] LABORATORYCLIA [id number] [place] [address] [place] Basic metabolic 2000 panelon 10-09-2021 Anion gap [Moles/Vol] 15 mmol/L Normal 9-18 [facility] Comment on above: Order Comment: Speci men Type: BLOOD SPECIMENOrdering Facility: [facility] Address: [address] [place] [address] Performed By: #### 1 9123-9, 2777-1, 33240-5 ####[facility] LABORATORYCLIA [id number] [place] [address] [place] Calcium [Mass/Vol] 8.4 mg/dL Low 8.5-10.2 [facility] Comment on above: Order Comment: Speci men Type: BLOOD SPECIMENOrdering Facility: [facility] Address: [address] [place] [address] Performed By: #### 1 9123-9, 2776-04, 97319-0 ####[facility] LABORATORYCLIA [id number] [place] [address] [place] Chloride [Moles/Vol] 96 mmol/L Low 97-105 [facility] Comment on above: Order Comment: Speci men Type: BLOOD SPECIMENOrdering Facility: [facility] Address: [address] [place] [address] Performed By: #### 1 9123-9, 2776-04, ####[facility] LABORATORYCLIA [id number] [address] [place] CO2 [Moles/Vol] 23 mmol/L Normal 22-30 [facility] Comment on above: Order Comment: Speci men Type: BLOOD SPECIMENOrdering Facility: [facility] Address: [address] [place] [address] Performed By: #### 1 9123-9, 2776-04, ####[facility] LABORATORYCLIA [id number] [address] STATES OF [facility] Creatinine [Mass/Vol] 0.37 mg/dL Low 0.58-0.96 [facility] Comment on above: Order Comment: Speci men Type: BLOOD SPECIMENOrdering Facility: [facility] Address: [address] [place] [address] Performed By: #### 1 9123-9, 27710-20, 17606-8 ####[facility] LABORATORYCLIA [id number] [address] ESTIMATED GLOMERULAR FILTRATION RATE 106 mL/min/1.73m??? Normal >=60 [facility] Comment on above: Order Comment: Speci men Type: BLOOD SPECIMENOrdering Facility: [facility] Address: [address] [place] [address] Result Comment: Lulu mated Glomerular Filtration Rate [...] GFR. Performed By: #### 1 9123-9, 2777-, 70879-5 ####[facility] LABORATORYCLIA [id number] [place] [address] [place] Glucose [Mass/Vol] 156 mg/dL High 74-99 [facility] Comment on above: Order Comment: Sharath lozano Type: BLOOD SPECIMENOrdering Facility: [facility] Address: [address] [place] [address] Result Comment: The [place] [employer] (ADA) provides guidance for cutoff [...] Standards of Medical Care in Diabetes 2016, [place] [employer]. Diabetes Care. 2016.39(Suppl 1). Performed By: #### 1 9123-9, 2777-, 55749-5 ####[facility] LABORATORYIA [id number] [place] [address] [place] Potassium [Moles/Vol] 3.3 mmol/L Low 3.7-5.1 [facility] Comment on above: Order Comment: Sharath lozano Type: BLOOD SPECIMENOrdering Facility: [facility] Address: [address] [address] Performed By: #### 1 9123-9, 2777-, 88090-2 ####[facility] LABORATORYCLIA [id number] [place] [address] [place] Sodium [Moles/Vol] 134 mmol/L Low 136-144 [facility] Comment on above: Order Comment: Speci men Type: BLOOD SPECIMENOrdering Facility: [facility] Address: [address] [place] [address] Performed By: #### 1 9123-9, 2777-1, 94574-7 ####[facility] LABORATORYCLIA [id number] [place] [address] [place] Urea nitrogen [Mass/Vol] 7 mg/dL Normal 7-21 [facility] Comment on above: Order Comment: Speci men Type: BLOOD SPECIMENOrdering Facility: [facility] Address: [address] [place] [address] Performed By: #### 1 9123-9, 27771, 41174-9 ####[facility] LABORATORYCLIA [id number] [address] STATES OF [facility] Anion gap [Moles/Vol] 10 mmol/L Normal 9-18 [facility] Comment on above: Order Comment: Speci men Type: BLOOD SPECIMENOrdering Facility: [facility] Address: [address] [place] [address] Performed By: #### 2 777-1, 16473-8, ####[facility] LABORATORYCLIA [id number] [place] [address] [place] Calcium [Mass/Vol] 7.6 mg/dL Low 8.5-10.2 [facility] Comment on above: Order Comment: Speci men Type: BLOOD SPECIMENOrdering Facility: [facility] Address: [address] [place] [address] Performed By: #### 2 777-1, 73658-5, ####[facility] LABORATORYCLIA [id number] [place] [address] [place] Chloride [Moles/Vol] 96 mmol/L Low 97-105 [facility] Comment on above: Order Comment: Speci men Type: BLOOD SPECIMENOrdering Facility: [facility] Address: [address] [place] [address] Performed By: #### 2 777-1, , ####[facility] LABORATORYCLIA [id number] [address] CO2 [Moles/Vol] 27 mmol/L Normal 22-30 [facility] Comment on above: Order Comment: Speci men Type: BLOOD SPECIMENOrdering Facility: [facility] Address: [address] [place] [address] Performed By: #### 2 777-1, , ####[facility] [id number] [address] Creatinine [Mass/Vol] 0.49 mg/dL Low 0.58-0.96 [facility] Comment on above: Order Comment: Speci men Type: BLOOD SPECIMENOrdering Facility: [facility] Address: [address] [place] [address] Performed By: #### 2 777-1, , ####[facility]CLIA [id number] [address] ESTIMATED GLOMERULAR FILTRATION RATE 99 mL/min/1.73m??? Normal >=60 [facility] Comment on above: Order Comment: Speci men Type: BLOOD SPECIMENOrdering Facility: [facility] Address: [address] [place] [address] Result Comment: Lulu mated Glomerular Filtration Rate [...] actual GFR. Performed By: #### 2 777-1, , ####[facility]CLIA [id number] [place] [address] [place] Glucose [Mass/Vol] 106 mg/dL High 74-99 [facility] Comment on above: Order Comment: Speci men Type: BLOOD SPECIMENOrdering Facility: [facility] Address: [address] [place] [address] Result Comment: The [place] Diabetes [employer] (ADA) provides guidance for cutoff [...] Standards of Medical Care in Diabetes 2016, [place] [employer]. Diabetes Care. 2016.39(Suppl 1). Performed By: #### 2 777-1, , ####[facility] LABORATORYCLIA [id number] [place] [address] [place] Potassium [Moles/Vol] 3.5 mmol/L Low 3.7-5.1 [facility] Comment on above: Order Comment: Speci men Type: BLOOD SPECIMENOrdering Facility: [facility] Address: [address] [place], [place] [address] Performed By: #### 2 777-1, , ####[facility] LABORATORYCLIA [id number] [place] [address] [place] Sodium [Moles/Vol] 133 mmol/L Low 136-144 [facility] Comment on above: Order Comment: Speci men Type: BLOOD SPECIMENOrdering Facility: [facility] Address: [address] [place], [place] [address] Performed By: #### 2 777-1, , ####[facility] LABORATORYCLIA [id number] [address] [place] Urea nitrogen [Mass/Vol] 6 mg/dL Low 7-21 [facility] Comment on above: Order Comment: Speci men Type: BLOOD SPECIMENOrdering Facility: [facility] Address: [address] [place] [address] Performed By: #### 2 777-1, 45165-3, 81095-5 ####[facility] LABORATORYCLIA [id number] [address] CBC panel Auto (Bld)on 10-09 Erythrocyte distribution width (RBC) [Ratio] 13.2 % Normal 11.5-15.0 [facility] Comment on above: Order Comment: Speci men Type: BLOOD SPECIMENOrdering Facility: [facility] Address: [address] [place] [address] Performed By: #### 5 8410-2 ####[facility] LABORATORYCLIA [id number] [address] STATES OF [facility] Hematocrit (Bld) [Volume fraction] 31.9 % Low 36.0-46.0 [facility] Comment on above: Order Comment: Speci men Type: BLOOD SPECIMENOrdering Facility: [facility] Address: [address] [place] [address] Performed By: #### 5 8410-2 ####[facility] LABORATORYCLIA [id number] [address] [place] Hemoglobin (Bld) [Mass/Vol] 11.0 g/dL Low 11.5-15.5 [facility] Comment on above: Order Comment: Speci men Type: BLOOD SPECIMENOrdering Facility: [facility] Address: [address] [place] [address] Performed By: #### 5 8410-2 ####[facility] LABORATORYCLIA [id number] [address] [place] MCH (RBC) [Entitic mass] 32.7 pg Normal 26.0-34.0 [facility] Comment on above: Order Comment: Speci men Type: BLOOD SPECIMENOrdering Facility: [facility] Address: [address] [place] [address] Performed By: #### 5 8410-2 ####[facility] LABORATORYCLIA [id number] [address] MCHC (RBC) [Mass/Vol] 34.5 g/dL Normal 30.5-36.0 [facility] Comment on above: Order Comment: Speci men Type: BLOOD SPECIMENOrdering Facility: [facility] Address: [address] [place] [address] Performed By: #### 5 8410-2 ####[facility] LABORATORYCLIA [id number] [address] MCV (RBC) [Entitic vol] 94.9 fL Normal 80.0-100.0 [facility] Comment on above: Order Comment: Speci men Type: BLOOD SPECIMENOrdering Facility: [facility] Address: [address] [place] [address] Performed By: #### 5 8410-2 ####[facility] LABORATORYCLIA [id number] [address] Nucleated RBC (Bld) [#/Vol] 10*3/uL Normal <0.01 [facility] Comment on above: Order Comment: Speci men Type: BLOOD SPECIMENOrdering Facility: [facility] Address: [address] [place] [address] Performed By: #### 5 8410-2 ####[facility] LABORATORYCLIA [id number] [address] Platelet mean volume (Bld) [Entitic vol] 9.7 fL Normal 9.0-12.7 [facility] Comment on above: Order Comment: Speci men Type: BLOOD SPECIMENOrdering Facility: [facility] Address: [address] [place] [address] Performed By: #### 5 8410-2 ####[facility] LABORATORYCLIA [id number] [address] OF [facility] Platelets (Bld) [#/Vol] 301 10*3/uL Normal 150-400 [facility] Comment on above: Order Comment: Speci men Type: BLOOD SPECIMENOrdering Facility: [facility] Address: [address] [place] [address] Performed By: #### 5 8410-2 ####[facility] LABORATORYCLIA [id number] [address] RBC (Bld) [#/Vol] 3.36 10*6/uL Low 3.90-5.20 [facility] Comment on above: Order Comment: Speci men Type: BLOOD SPECIMENOrdering Facility: [facility] Address: [address] [place] [address] Performed By: #### 5 8410-2 ####[facility] LABORATORYCLIA [id number] [address] WBC (Bld) [#/Vol] 22.01 10*3/uL High 3.70-11.00 [facility] Comment on above: Order Comment: Speci men Type: BLOOD SPECIMENOrdering Facility: [facility] Address: [address] [place] [address] Performed By: #### 5 8410-2 ####[facility] LABORATORYCLIA [id number] [address] [employer] distribution width (RBC) [Ratio] 13.4 % Normal 11.5-15.0 [facility] Comment on above: Order Comment: Speci men Type: BLOOD SPECIMENOrdering Facility: [facility] Address: [address] [place] [address] Performed By: #### 5 8410-2 ####[facility] LABORATORYCLIA [id number] [address] Hematocrit (Bld) [Volume fraction] 28.6 % Low 36.0-46.0 [facility] Comment on above: Order Comment: Speci men Type: BLOOD SPECIMENOrdering Facility: [facility] Address: [address] [place] [address] Performed By: #### 5 8410-2 ####[facility] LABORATORYCLIA [id number] [address] Hemoglobin (Bld) [Mass/Vol] 9.8 g/dL Low 11.5-15.5 [facility] Comment on above: Order Comment: Speci men Type: BLOOD SPECIMENOrdering Facility: [facility] Address: [address] [place] [address] Performed By: #### 5 8410-2 ####[facility] LABORATORYCLIA [id number] [address] MCH (RBC) [Entitic mass] 32.8 pg Normal 26.0-34.0 [facility] Comment on above: Order Comment: Speci men Type: BLOOD SPECIMENOrdering Facility: [facility] Address: [address] [place] [address] Performed By: #### 5 8410-2 ####[facility] LABORATORYCLIA [id number] [address] MCHC (RBC) [Mass/Vol] 34.3 g/dL Normal 30.5-36.0 [facility] Comment on above: Order Comment: Speci men Type: BLOOD SPECIMENOrdering Facility: [facility] Address: [address] [place] [address] Performed By: #### 5 8410-2 ####[facility] LABORATORYCLIA [id number] [address] MCV (RBC) [Entitic vol] 95.7 fL Normal 80.0-100.0 [facility] Comment on above: Order Comment: Speci men Type: BLOOD SPECIMENOrdering Facility: [facility] Address: [address] [place] [address] Performed By: #### 5 8410-2 ####[facility] LABORATORYCLIA [id number] [address] [place] Nucleated RBC (Bld) [#/Vol] 10*3/uL Normal <0.01 [facility] Comment on above: Order Comment: Speci men Type: BLOOD SPECIMENOrdering Facility: [facility] Address: [address] [place] [address] Performed By: #### 5 8410-2 ####[facility] LABORATORYCLIA [id number] [address] [place] Platelet mean volume (Bld) [Entitic vol] 9.9 fL Normal 9.0-12.7 [facility] Comment on above: Order Comment: Speci men Type: BLOOD SPECIMENOrdering Facility: [facility] Address: [address] [place] [address] Performed By: #### 5 8410-2 ####[facility] LABORATORYCLIA [id number] [address] [place] Platelets (Bld) [#/Vol] 273 10*3/uL Normal 150-400 [facility] Comment on above: Order Comment: Speci men Type: BLOOD SPECIMENOrdering Facility: [facility] Address: [address] [place] [address] Performed By: #### 5 8410-2 ####[facility] LABORATORYCLIA [id number] [address] [place] RBC (Bld) [#/Vol] 2.99 10*6/uL Low 3.90-5.20 [facility] Comment on above: Order Comment: Speci men Type: BLOOD SPECIMENOrdering Facility: [facility] Address: [address] [place] [address] Performed By: #### 5 8410-2 ####[facility] LABORATORYCLIA [id number] [address] [place] WBC (Bld) [#/Vol] 10.93 10*3/uL Normal 3.70-11.00 [facility] Comment on above: Order Comment: Speci men Type: BLOOD SPECIMENOrdering Facility: [facility] Address: [address] [place] [address] Performed By: #### 5 8410-2 ####[facility] LABORATORYCLIA [id number] [place] [address] [place] Calcium.ionized [Moles/Vol]o n 10-09-2021 Calcium.ionized (BldV) [Mass/Vol] 1.02 mmol/L Low 1.08-1.30 [facility] Comment on above: Order Comment: Speci men Type: BLOOD SPECIMENOrdering Facility: [facility] Address: [address] [place] [address] Performed By: #### 1 995-0 ####[facility] LABORATORYCLIA [id number] [address] STATES OF [facility] Calcium.ionized adjusted to pH 7.4 (Bld) [Moles/Vol] 1.00 mmol/L Low 1.08-1.30 [facility] Comment on above: Order Comment: Speci men Type: BLOOD SPECIMENOrdering Facility: [facility] Address: [address] [place] [address] Performed By: #### 1 995-0 ####[facility] LABORATORYCLIA [id number] [place] [address] [place] Magnesium SerPl-mCncon 10-09 Magnesium [Mass/Vol] 1.3 mg/dL Low 1.7-2.3 [facility] Comment on above: Order Comment: Speci men Type: BLOOD SPECIMENOrdering Facility: [facility] Address: [address] [place] [address] Performed By: #### 1 9123-9, 2777-1, 11951-4 ####[facility] LABORATORYCLIA [id number] [place] [address] [place] Magnesium [Mass/Vol] 1.5 mg/dL Low 1.7-2.3 [facility] Comment on above: Order Comment: Speci men Type: BLOOD SPECIMENOrdering Facility: [facility] Address: [address] [place] [address] Performed By: #### 2 777-1, 58424-9, ####[facility] LABORATORYCLIA [id number] [address] NURSING PROGon 10-09-2021 NURSING PROG Normal [facility] OPERATIVE NOon 10-09-2021 OPERATIVE NO Normal [facility] Phosphate SerPl-mCncon 10-09 Phosphate [Mass/Vol] 4.3 mg/dL Normal 2.7-4.8 [facility] Comment on above: Order Comment: Speci men Type: BLOOD SPECIMENOrdering Facility: [facility] Address: [address] [place] [address] Performed By: #### 1 9123-9, 2777-1, 80792-4 ####[facility] LABORATORYCLIA [id number] [address] Phosphate [Mass/Vol] 3.8 mg/dL Normal 2.7-4.8 [facility] Comment on above: Order Comment: Speci men Type: BLOOD SPECIMENOrdering Facility: [facility] Address: [address] [place] [address] Performed By: #### 2 777-1, 53952-9, ####[facility] LABORATORYCLIA [id number] [address] THERAPY NTon 10-09-2021 THERAPY NT Normal [facility] TYPE + SCREENon 10-09-2021 ABO A Normal [facility] Comment on above: Order Comment: Speci men Type: BLOOD SPECIMENOrdering Facility: [facility] Address: [address] [place] [address] Performed By: #### T SCR ####[facility] BLOOD BANKCLIA [id number] [address] HISTORICAL AB SCR STATUS Negative Normal [facility] Comment on above: Order Comment: Speci men Type: BLOOD SPECIMENOrdering Facility: [facility] Address: [address] [place] [address] Performed By: #### T SCR ####[facility] BLOOD BANKCLIA [id number] [address] Rh Nom (Bld) Positive Normal [facility] Comment on above: Order Comment: Speci men Type: BLOOD SPECIMENOrdering Facility: [facility] Address: [address] [place] [address] Performed By: #### T SCR ####[facility] BLOOD BANKCLIA [id number] [address] TYPE AND SCREEN EXPIRATION 10/12/2021 23:59 Normal [facility] Comment on above: Order Comment: Speci men Type: BLOOD SPECIMENOrdering Facility: [facility] Address: [address] [place] [address] Performed By: #### T SCR ####[facility] BLOOD BANKCLIA [id number] [address] XR CHEST 1V FRONTALon 2021 XR CHEST 1V FRONTAL Normal [facility] XR CHEST 1V FRONTAL Normal [facility] 25(OH)D3 [facility]-ncon 2021 25-hydroxyvitamin D3 [Mass/Vol] 44.4 ng/mL Normal 30.0-100.0 [facility] Comment on above: Order Comment: Speci men Type: BLOOD SPECIMENOrdering Facility: [facility] Address: [address] [place] [address] Result Comment: Clas sification of 25 [place] Vitamin D status:Deficiency: <= 20.0 ng/ml.Insufficientcy: 21.0-29.0 ng/ml.Sufficiency: >= 30.0 ng/ml. Performed By: #### 1 989-3 ####[facility] LABORATORYCLIA [id number] [address] [place] ALLIED HEALTHon 10-08-2021 ALLIED HEALTH Normal [facility] Basic metabolic 2000 panelon 10-08-2021 Anion gap [Moles/Vol] 9 mmol/L Normal 9-18 [facility] Comment on above: Order Comment: Speci men Type: BLOOD SPECIMENOrdering Facility: [facility] Address: [address] [place] [address] Performed By: #### 2 4321-2, , 2776-04 ####[facility] LABORATORYCLIA [id number] [place] [address] [place] Calcium [Mass/Vol] 7.1 mg/dL Low 8.5-10.2 [facility] Comment on above: Order Comment: Speci men Type: BLOOD SPECIMENOrdering Facility: [facility] Address: [address] [place] [address] Performed By: #### 2 4321-2, , 2776-04 ####[facility] LABORATORYCLIA [id number] [place] [address] [place] Chloride [Moles/Vol] 100 mmol/L Normal 97-105 [facility] Comment on above: Order Comment: Speci men Type: BLOOD SPECIMENOrdering Facility: [facility] Address: [address] [place] [address] Performed By: #### 2 4321-2, , 2776-04 ####[facility] LABORATORYCLIA [id number] [place] [address] [place] CO2 [Moles/Vol] 24 mmol/L Normal 22-30 [facility] Comment on above: Order Comment: Speci men Type: BLOOD SPECIMENOrdering Facility: [facility] Address: [address] [place] [address] Performed By: #### 2 4321-2, , 2776-04 ####[facility] LABORATORYCLIA [id number] [place] [address] [place] Creatinine [Mass/Vol] 0.55 mg/dL Low 0.58-0.96 [facility] Comment on above: Order Comment: Speci men Type: BLOOD SPECIMENOrdering Facility: [facility] Address: [address] [address] Performed By: #### 2 4321-2, , 2776-04 ####[facility]CL[facility] [id number] [address] [place] ESTIMATED GLOMERULAR FILTRATION RATE 96 mL/min/1.73m??? Normal >=60 [facility] Comment on above: Order Comment: Sharath lozano Type: BLOOD SPECIMENOrdering Facility: [facility] Address: [address] [place] [address] Result Comment: Lulu mated Glomerular Filtration Rate [...] Performed By: #### 2 4321-2, , 2776-04 ####[facility] LABORATORYCLIA [id number] [place] [address] [place] Glucose [Mass/Vol] 108 mg/dL High 74-99 [facility] Comment on above: Order Comment: Sharath lozano Type: BLOOD SPECIMENOrdering Facility: [facility] Address: [address] [place] [address] Result Comment: The [place] [employer] (ADA) provides guidance for cutoff [...] Standards of Medical Care in Diabetes 2016, [place] [employer]. Diabetes Care. 2016.39(Suppl 1). Performed By: #### 2 4321-2, , 2776-04 ####[facility] LABORATORYCLIA [id number] [place] [address] [place] Potassium [Moles/Vol] 3.5 mmol/L Low 3.7-5.1 [facility] Comment on above: Order Comment: Speci men Type: BLOOD SPECIMENOrdering Facility: [facility] Address: [address] [place] [address] Performed By: #### 2 4321-2, , 2776-04 ####[facility] LABORATORYCLIA [id number] [address] STATES OF [facility] Sodium [Moles/Vol] 133 mmol/L Low 136-144 [facility] Comment on above: Order Comment: Speci men Type: BLOOD SPECIMENOrdering Facility: [facility] Address: [address] [place] [address] Performed By: #### 2 4321-2, , 2776-04 ####[facility]NACLIA [id number] [address] Urea nitrogen [Mass/Vol] 6 mg/dL Low 7-21 [facility] Comment on above: Order Comment: Speci men Type: BLOOD SPECIMENOrdering Facility: [facility] Address: [address] [place] [address] Performed By: #### 2 4321-2, , 2776-04 ####[facility] LABORATORYCLIA [id number] [address] CBC panel Auto (Bld)on 10-08 Erythrocyte distribution width (RBC) [Ratio] 13.3 % Normal 11.5-15.0 [facility] Comment on above: Order Comment: Speci men Type: BLOOD SPECIMENOrdering Facility: [facility] Address: [address] [place] [address] Performed By: #### 5 8410-2 ####[facility] LABORATORYCLIA [id number] [address] Hematocrit (Bld) [Volume fraction] 28.3 % Low 36.0-46.0 [facility] Comment on above: Order Comment: Speci men Type: BLOOD SPECIMENOrdering Facility: [facility] Address: [address] [place] [address] Performed By: #### 5 8410-2 ####[facility] LABORATORYCLIA [id number] [address] OF [facility] Hemoglobin (Bld) [Mass/Vol] 9.4 g/dL Low 11.5-15.5 [facility] Comment on above: Order Comment: Speci men Type: BLOOD SPECIMENOrdering Facility: [facility] Address: [address] [place] [address] Performed By: #### 5 8410-2 ####[facility] LABORATORYCLIA [id number] [address] MCH (RBC) [Entitic mass] 32.8 pg Normal 26.0-34.0 [facility] Comment on above: Order Comment: Speci men Type: BLOOD SPECIMENOrdering Facility: [facility] Address: [address] [place] [address] Performed By: #### 5 8410-2 ####[facility] LABORATORYCLIA [id number] [address] OF [facility] MCHC (RBC) [Mass/Vol] 33.2 g/dL Normal 30.5-36.0 [facility] Comment on above: Order Comment: Speci men Type: BLOOD SPECIMENOrdering Facility: [facility] Address: [address] [place] [address] Performed By: #### 5 8410-2 ####[facility] LABORATORYCLIA [id number] [address] MCV (RBC) [Entitic vol] 98.6 fL Normal 80.0-100.0 [facility] Comment on above: Order Comment: Speci men Type: BLOOD SPECIMENOrdering Facility: [facility] Address: [address] [place], [place] [address] Performed By: #### 5 8410-2 ####[facility] LABORATORYCLIA [id number] [address] Nucleated RBC (Bld) [#/Vol] 10*3/uL Normal <0.01 [facility] Comment on above: Order Comment: Speci men Type: BLOOD SPECIMENOrdering Facility: [facility] Address: [address] [place] [address] Performed By: #### 5 8410-2 ####[facility] LABORATORYCLIA [id number] [address] [place] Platelet mean volume (Bld) [Entitic vol] 10.1 fL Normal 9.0-12.7 [facility] Comment on above: Order Comment: Speci men Type: BLOOD SPECIMENOrdering Facility: [facility] Address: [address] [place] [address] Performed By: #### 5 8410-2 ####[facility] LABORATORYCLIA [id number] [address] [place] Platelets (Bld) [#/Vol] 262 10*3/uL Normal 150-400 [facility] Comment on above: Order Comment: Speci men Type: BLOOD SPECIMENOrdering Facility: [facility] Address: [address] [place] [address] Performed By: #### 5 8410-2 ####[facility] LABORATORYCLIA [id number] [address] [place] RBC (Bld) [#/Vol] 2.87 10*6/uL Low 3.90-5.20 [facility] Comment on above: Order Comment: Speci men Type: BLOOD SPECIMENOrdering Facility: [facility] Address: [address] [place] [address] Performed By: #### 5 8410-2 ####[facility] LABORATORYCLIA [id number] [address] [place] WBC (Bld) [#/Vol] 7.41 10*3/uL Normal 3.70-11.00 [facility] Comment on above: Order Comment: Speci men Type: BLOOD SPECIMENOrdering Facility: [facility] Address: [address] [place] [address] Performed By: #### 5 8410-2 ####[facility] LABORATORYCLIA [id number] [place] [address] [place] Calcium.ionized [Moles/Vol]o n 10-08-2021 Calcium.ionized (BldV) [Mass/Vol] 0.99 mmol/L Low 1.08-1.30 [facility] Comment on above: Order Comment: Speci men Type: BLOOD SPECIMENOrdering Facility: [facility] Address: [address] [place] [address] Performed By: #### 1 995-0 ####[facility] LABORATORYCLIA [id number] [place] [address] [place] Calcium.ionized adjusted to pH 7.4 (Bld) [Moles/Vol] 0.96 mmol/L Low 1.08-1.30 [facility] Comment on above: Order Comment: Speci men Type: BLOOD SPECIMENOrdering Facility: [facility] Address: [address] [place] [address] Performed By: #### 1 995-0 ####[facility] LABORATORYCLIA [id number] [place] [address] [place] Magnesium SerPl-mCncon 10-08 Magnesium [Mass/Vol] 1.8 mg/dL Normal 1.7-2.3 [facility] Comment on above: Order Comment: Speci men Type: BLOOD SPECIMENOrdering Facility: [facility] Address: [address] [place] [address] Performed By: #### 2 4321-2, 06246-7, 2777-1 ####[facility] LABORATORYCLIA [id number] [place] [address] [place] Phosphate SerPl-mCncon 10-08 Phosphate [Mass/Vol] 3.4 mg/dL Normal 2.7-4.8 [facility] Comment on above: Order Comment: Speci men Type: BLOOD SPECIMENOrdering Facility: [facility] Address: [address] [place] [address] Performed By: #### 2 4321-2, 46750-4, 2776-04 ####[facility] LABORATORYCLIA [id number] [address] THERAPY NTon 10-08-2021 THERAPY NT Normal [facility] XR CHEST 1V FRONTALon 2021 XR CHEST 1V FRONTAL Normal [facility] 25(OH)D3 SerPl-ncon 2021 25-hydroxyvitamin D3 [Mass/Vol] 50.5 ng/mL Normal 30.0-100.0 [facility] Comment on above: Order Comment: Speci men Type: BLOOD SPECIMENOrdering Facility: [facility] Address: [address] [place] [address] Result Comment: Clas sification of 25 [place] Vitamin D status:Deficiency: <= 20.0 ng/ml.Insufficientcy: 21.0-29.0 ng/ml.Sufficiency: >= 30.0 ng/ml. Performed By: #### 1 989-3 ####[facility] LABORATORYCLIA [id number] [address] ALLIED HEALTHon 10-07-2021 ALLIED HEALTH Normal [facility] ALLIED HEALTH Normal [facility] ALLIED HEALTH Normal [facility] ALLIED HEALTH Normal [facility] ALLIED HEALTH Normal [facility] Basic metabolic 2000 panelon 10-07-2021 Anion gap [Moles/Vol] 8 mmol/L Low 9-18 [facility] Comment on above: Order Comment: Speci men Type: BLOOD SPECIMENOrdering Facility: [facility] Address: [address] [place] [address] Performed By: #### 2 4321-2, 2777-, ####[facility] LABORATORYCLIA [id number] [address] Calcium [Mass/Vol] 7.1 mg/dL Low 8.5-10.2 [facility] Comment on above: Order Comment: Speci men Type: BLOOD SPECIMENOrdering Facility: [facility] Address: [address] [place] [address] Performed By: #### 2 4321-2, 2776-04, ####[facility] LABORATORYCLIA [id number] [place] [address] [place] Chloride [Moles/Vol] 99 mmol/L Normal 97-105 [facility] Comment on above: Order Comment: Speci men Type: BLOOD SPECIMENOrdering Facility: [facility] Address: [address] [place] [address] Performed By: #### 2 4321-2, 2776-04, ####[facility] LABORATORYCLIA [id number] [address] STATES OF [facility] CO2 [Moles/Vol] 24 mmol/L Normal 22-30 [facility] Comment on above: Order Comment: Speci men Type: BLOOD SPECIMENOrdering Facility: [facility] Address: [address] [place] [address] Performed By: #### 2 4321-2, 2776-04, ####[facility] LABORATORYCLIA [id number] [address] [place] Creatinine [Mass/Vol] 0.51 mg/dL Low 0.58-0.96 [facility] Comment on above: Order Comment: Speci men Type: BLOOD SPECIMENOrdering Facility: [facility] Address: [address] [place], [place] [address] Performed By: #### 2 4321-2, 2776-04, ####[facility] LABORATORYCLIA [id number] [address] OF [facility] ESTIMATED GLOMERULAR FILTRATION RATE 98 mL/min/1.73m??? Normal >=60 [facility] Comment on above: Order Comment: Speci men Type: BLOOD SPECIMENOrdering Facility: [facility] Address: [address] [place] [address] Result Comment: Lulu mated Glomerular Filtration Rate [...] GFR. Performed By: #### 2 4321-2, 2777-, ####[facility]CL[facility] [id number] [place] [address] [place] Glucose [Mass/Vol] 112 mg/dL High 74-99 [facility] Comment on above: Order Comment: Sharath lozano Type: BLOOD SPECIMENOrdering Facility: [facility] Address: [address] [place], [place] [id number] Result Comment: The [place] [employer] (ADA) provides guidance for cutoff [...] Standards of Medical Care in Diabetes 2016, [place] [employer]. Diabetes Care. 2016.39(Suppl 1). Performed By: #### 2 4321-2, 2777-, ####[facility] LABORATORYCLIA [id number] [place] [id number] [place] Potassium [Moles/Vol] 3.6 mmol/L Low 3.7-5.1 [facility] Comment on above: Order Comment: Sharath [facility] Type: BLOOD SPECIMENOrdering Facility: [facility] Address: [address] [id number] Performed By: #### 2 4321-2, 27710-20, ####[facility] LABORATORYCLIA [id number] [place] [address] [place] Sodium [Moles/Vol] 131 mmol/L Low 136-144 [facility] Comment on above: Order Comment: Speci men Type: BLOOD SPECIMENOrdering Facility: [facility] Address: [address] [place] [address] Performed By: #### 2 4321-2, 27710-20, ####[facility] LABORATORYCLIA [id number] [address] [place] Urea nitrogen [Mass/Vol] 10 mg/dL Normal 7-21 [facility] Comment on above: Order Comment: Speci men Type: BLOOD SPECIMENOrdering Facility: [facility] Address: [address] [place] [address] Performed By: #### 2 4321-2, 27710-20, ####[facility] LABORATORYCLIA [id number] [address] [place] Basophil percentageon 2021 Basophil percentage 10-25 SEEN /hpf 0-5 [facility] Work Phone: Bilirubin Test strip Ql (U)o n 10-07-2021 Bilirubin Ql (U) Negative Negative [facility] Work Phone: CBC panel Auto (Bld)on 10-07 Erythrocyte distribution width (RBC) [Ratio] 13.3 % Normal 11.5-15.0 [facility] Comment on above: Order Comment: Speci men Type: BLOOD SPECIMENOrdering Facility: [facility] Address: [address] [place] [address] Performed By: #### 5 8410-2 ####[facility] LABORATORYCLIA [id number] [address] [place] Hematocrit (Bld) [Volume fraction] 28.4 % Low 36.0-46.0 [facility] Comment on above: Order Comment: Speci men Type: BLOOD SPECIMENOrdering Facility: [facility] Address: [address] [place] [address] Performed By: #### 5 8410-2 ####[facility] [facility]ORYCLIA [id number] [address] OF [facility] Hemoglobin (Bld) [Mass/Vol] 9.6 g/dL Low 11.5-15.5 [facility] Comment on above: Order Comment: Speci men Type: BLOOD SPECIMENOrdering Facility: [facility] Address: [address] [place] [address] Performed By: #### 5 8410-2 ####[facility] LABORATORYCLIA [id number] [address] MCH (RBC) [Entitic mass] 32.1 pg Normal 26.0-34.0 [facility] Comment on above: Order Comment: Speci men Type: BLOOD SPECIMENOrdering Facility: [facility] Address: [address] [place] [address] Performed By: #### 5 8410-2 ####[facility] LABORATORYCLIA [id number] [address] MCHC (RBC) [Mass/Vol] 33.8 g/dL Normal 30.5-36.0 [facility] Comment on above: Order Comment: Speci men Type: BLOOD SPECIMENOrdering Facility: [facility] Address: [address] [place] [address] Performed By: #### 5 8410-2 ####[facility]ORATORYCLIA [id number] [address] MCV (RBC) [Entitic vol] 95.0 fL Normal 80.0-100.0 [facility] Comment on above: Order Comment: Speci men Type: BLOOD SPECIMENOrdering Facility: [facility] Address: [address] [place] [address] Performed By: #### 5 8410-2 ####[facility] LABORATORYCLIA [id number] [place] [address] [place] Nucleated RBC (Bld) [#/Vol] 10*3/uL Normal <0.01 [facility] Comment on above: Order Comment: Speci men Type: BLOOD SPECIMENOrdering Facility: [facility] Address: [address] [place] [address] Performed By: #### 5 8410-2 ####[facility] LABORATORYCLIA [id number] [place] [address] [place] Platelet mean volume (Bld) [Entitic vol] 9.7 fL Normal 9.0-12.7 [facility] Comment on above: Order Comment: Speci men Type: BLOOD SPECIMENOrdering Facility: [facility] Address: [address] [place] [address] Performed By: #### 5 8410-2 ####[facility] LABORATORYCLIA [id number] [address] [place] Platelets (Bld) [#/Vol] 266 10*3/uL Normal 150-400 [facility] Comment on above: Order Comment: Speci men Type: BLOOD SPECIMENOrdering Facility: [facility] Address: [address] [place] [address] Performed By: #### 5 8410-2 ####[facility] LABORATORYCLIA [id number] [place] [address] [place] RBC (Bld) [#/Vol] 2.99 10*6/uL Low 3.90-5.20 [facility] Comment on above: Order Comment: Speci men Type: BLOOD SPECIMENOrdering Facility: [facility] Address: [address] [place] [address] Performed By: #### 5 8410-2 ####[facility]ORATORYCLIA [id number] [place] [address] [place] WBC (Bld) [#/Vol] 8.53 10*3/uL Normal 3.70-11.00 [facility] Comment on above: Order Comment: Speci men Type: BLOOD SPECIMENOrdering Facility: [facility] Address: [address] [place] [address] Performed By: #### 5 8410-2 ####[facility]ATORYCLIA [id number] [address] Erythrocyte distribution width (RBC) [Ratio] 13.2 % Normal 11.5-15.0 [facility] Comment on above: Order Comment: Speci men Type: BLOOD SPECIMENOrdering Facility: [facility] Address: [address] [place] [address] Performed By: #### 5 8410-2 ####[facility] LABORATORYCLIA [id number] [address] Hematocrit (Bld) [Volume fraction] 29.7 % Low 36.0-46.0 [facility] Comment on above: Order Comment: Speci men Type: BLOOD SPECIMENOrdering Facility: [facility] Address: [address] [place] [address] Performed By: #### 5 8410-2 ####[facility]ATORYCLIA [id number] [address] Hemoglobin (Bld) [Mass/Vol] 10.2 g/dL Low 11.5-15.5 [facility] Comment on above: Order Comment: Speci men Type: BLOOD SPECIMENOrdering Facility: [facility] Address: [address] [place] [address] Performed By: #### 5 8410-2 ####[facility]ORATORYCLIA [id number] [address] STATES [facility] MCH (RBC) [Entitic mass] 32.4 pg Normal 26.0-34.0 [facility] Comment on above: Order Comment: Speci men Type: BLOOD SPECIMENOrdering Facility: [facility] Address: [address] [place] [address] Performed By: #### 5 8410-2 ####[facility]ORYCLIA [id number] [address] MCHC (RBC) [Mass/Vol] 34.3 g/dL Normal 30.5-36.0 [facility] Comment on above: Order Comment: Speci men Type: BLOOD SPECIMENOrdering Facility: [facility] Address: [address] [place] [address] Performed By: #### 5 8410-2 ####[facility]ATORYCLIA [id number] [address] [place] MCV (RBC) [Entitic vol] 94.3 fL Normal 80.0-100.0 [facility] Comment on above: Order Comment: Speci men Type: BLOOD SPECIMENOrdering Facility: [facility] Address: [address] [place] [address] Performed By: #### 5 8410-2 ####[facility]ATORYCLIA [id number] [address] STATES OF [facility] Nucleated RBC (Bld) [#/Vol] 10*3/uL Normal <0.01 [facility] Comment on above: Order Comment: Speci men Type: BLOOD SPECIMENOrdering Facility: [facility] Address: [address] [place] [address] Performed By: #### 5 8410-2 ####[facility]ATORYCLIA [id number] [address] [place] Platelet mean volume (Bld) [Entitic vol] 9.9 fL Normal 9.0-12.7 [facility] Comment on above: Order Comment: Speci men Type: BLOOD SPECIMENOrdering Facility: [facility] Address: [address] [place] [address] Performed By: #### 5 8410-2 ####[facility]ATORYCLIA [id number] [address] [place] Platelets (Bld) [#/Vol] 308 10*3/uL Normal 150-400 [facility] Comment on above: Order Comment: Speci men Type: BLOOD SPECIMENOrdering Facility: [facility] Address: [address] [address] Performed By: #### 5 8410-2 ####[facility]ATORYCLIA [id number] [place] [address] [place] RBC (Bld) [#/Vol] 3.15 10*6/uL Low 3.90-5.20 [facility] Comment on above: Order Comment: Speci men Type: BLOOD SPECIMENOrdering Facility: [facility] Address: [address] [place] [address] Performed By: #### 5 8410-2 ####[facility]ATORYCLIA [id number] [place] [address] [place] WBC (Bld) [#/Vol] 18.90 10*3/uL High 3.70-11.00 [facility] Comment on above: Order Comment: Speci men Type: BLOOD SPECIMENOrdering Facility: [facility] Address: [address] [place] [address] Performed By: #### 5 8410-2 ####[facility]ATORYCLIA [id number] [address] [place] BLOOD TYPEon 022 ABO A Normal [facility] Comment on above: Order Comment: Speci men Type: BLOOD SPECIMENOrdering Facility: [facility] Address: [address] [place] [address] Performed By: #### C ONABO ####[facility] B[facility] BANKCLIA [id number] [address] Rh Nom (Bld) Positive Normal [facility] Comment on above: Order Comment: Speci men Type: BLOOD SPECIMENOrdering Facility: [facility] Address: [address] [place] [address] Performed By: #### C ONABO ####[facility] BLO[facility] BANKCLIA [id number] [address] [place] CONSULTon 10-07-2021 CONSULT Normal [facility] CONSULT Normal [facility] CT BRAIN WO IVCONon 10-08-[address] BRAIN WO IVCON Normal [facility] CT BRAIN WO IVCON Normal [facility] CT CERVICAL SPINE WO IVCONon 10-07-2021 CT CERVICAL SPINE WO IVCON Normal [facility] CT CHEST WO IVCONon 10-08-[address] CHEST WO IVCON Normal [facility] CTA HEAD W IVCONon 2 CTA HEAD W IVCON Normal [facility] CTA NECK W IVCONon 2 CTA NECK W IVCON Normal [facility] Calcium.ionized [Moles/Vol]o n 10-07-2021 Calcium.ionized (BldV) [Mass/Vol] 1.00 mmol/L Low 1.08-1.30 [facility] Comment on above: Order Comment: Speci men Type: BLOOD SPECIMENOrdering Facility: [facility] Address: [address] [place] [address] Performed By: #### 1 995-0 ####[facility]ATORYCLIA [id number] [address] Calcium.ionized adjusted to pH 7.4 (Bld) [Moles/Vol] 0.96 mmol/L Low 1.08-1.30 [facility] Comment on above: Order Comment: Speci men Type: BLOOD SPECIMENOrdering Facility: [facility] Address: [address] [place] [address] Performed By: #### 1 995-0 ####[facility] LABORATORYCLIA [id number] [address] Comprehensive metabolic 2000 panelon 10-07-2021 Albumin [Mass/Vol] 4.0 g/dL Normal 3.9-4.9 [facility] Comment on above: Order Comment: Speci men Type: BLOOD SPECIMENOrdering Facility: [facility] Address: [address] [place] [address] Performed By: #### 2 4323-8 ####[facility]ORATORYCLIA [id number] [address] ALP [Catalytic activity/Vol] 66 U/L Normal 34-123 [facility] Comment on above: Order Comment: Speci men Type: BLOOD SPECIMENOrdering Facility: [facility] Address: [address] [place] [address] Performed By: #### 2 4323-8 ####[facility] LABORATORYCLIA [id number] [address] STATES OF [facility] ALT With P-5'-P [Catalytic activity/Vol] 21 U/L Normal 7-38 [facility] Comment on above: Order Comment: Speci men Type: BLOOD SPECIMENOrdering Facility: [facility] Address: [address] [place] [address] Performed By: #### 2 4323-8 ####[facility]ORATORYCLIA [id number] [address] OF [facility] Anion gap [Moles/Vol] 10 mmol/L Normal 9-18 [facility] Comment on above: Order Comment: Speci men Type: BLOOD SPECIMENOrdering Facility: [facility] Address: [address] [place] [address] Performed By: #### 2 4323-8 ####[facility]ORATORYCLIA [id number] [address] STATES OF [facility] AST With P-5'-P [Catalytic activity/Vol] 39 U/L High 13-35 [facility] Comment on above: Order Comment: Speci men Type: BLOOD SPECIMENOrdering Facility: [facility] Address: [address] [place] [address] Performed By: #### 2 4323-8 ####[facility]ATORYCLIA [id number] [address] [place] Bilirubin [Mass/Vol] 0.5 mg/dL Normal 0.2-1.3 [facility] Comment on above: Order Comment: Speci men Type: BLOOD SPECIMENOrdering Facility: [facility] Address: [address] [place] [address] Performed By: #### 2 4323-8 ####[facility]ATORYCLIA [id number] [place] [address] [place] Calcium [Mass/Vol] 8.1 mg/dL Low 8.5-10.2 [facility] Comment on above: Order Comment: Speci men Type: BLOOD SPECIMENOrdering Facility: [facility] Address: [address] [place] [address] Performed By: #### 2 4323-8 ####[facility]ATORYCLIA [id number] [address] [place] Chloride [Moles/Vol] 93 mmol/L Low 97-105 [facility] Comment on above: Order Comment: Speci men Type: BLOOD SPECIMENOrdering Facility: [facility] Address: [address] [place] [address] Performed By: #### 2 4323-8 ####[facility]ATORYCLIA [id number] [address] [place] CO2 [Moles/Vol] 25 mmol/L Normal 22-30 [facility] Comment on above: Order Comment: Speci men Type: BLOOD SPECIMENOrdering Facility: [facility] Address: [address] [place] [address] Performed By: #### 2 4323-8 ####[facility]ORATORYCLIA [id number] [address] [place] Creatinine [Mass/Vol] 0.60 mg/dL Normal 0.58-0.96 [facility] Comment on above: Order Comment: Speci men Type: BLOOD SPECIMENOrdering Facility: [facility] Address: [address] [place] [address] Performed By: #### 2 4323-8 ####[facility] LABORATORYCLIA [id number] [address] ESTIMATED GLOMERULAR FILTRATION RATE 94 mL/min/1.73m??? Normal >=60 [facility] Comment on above: Order Comment: Speci men Type: BLOOD SPECIMENOrdering Facility: [facility] Address: [address] [id number] Result Comment: Lulu mated Glomerular Filtration Rate [...] actual GFR. Performed By: #### 2 4323-8 ####[facility]NACLIA [id number] [place] [address] [place] Glucose [Mass/Vol] 143 mg/dL High 74-99 [facility] Comment on above: Order Comment: Sharath lozano Type: BLOOD SPECIMENOrdering Facility: [facility] Address: [address] [address] Result Comment: The [place] [employer] (ADA) provides guidance for cutoff [...] Standards of Medical Care in Diabetes 2016, [place] [employer]. Diabetes Care. 2016.39(Suppl 1). Performed By: #### 2 4323-8 ####[facility] LABORATORYCLIA [id number] [address] [place] [id number] [place] Potassium [Moles/Vol] 3.8 mmol/L Normal 3.7-5.1 [facility] Comment on above: Order Comment: Sharath lozano Type: BLOOD SPECIMENOrdering Facility: [facility] Address: [address] [phone] Performed By: #### 2 4323-8 ####[facility] LABORATORYCLIA [id number] [place] [address] [place] Protein [Mass/Vol] 6.0 g/dL Low 6.3-8.0 [facility] Comment on above: Order Comment: Speci men Type: BLOOD SPECIMENOrdering Facility: [facility] Address: [address] [place] [address] Performed By: #### 2 4323-8 ####[facility] LABORATORYCLIA [id number] [address] [place] Sodium [Moles/Vol] 128 mmol/L Low 136-144 [facility] Comment on above: Order Comment: Speci men Type: BLOOD SPECIMENOrdering Facility: [facility] Address: [address] [place] [address] Performed By: #### 2 4323-8 ####[facility]ORATORYCLIA [id number] [address] Urea nitrogen [Mass/Vol] 16 mg/dL Normal 7-21 [facility] Comment on above: Order Comment: Speci men Type: BLOOD SPECIMENOrdering Facility: [facility] Address: [address] [place] [address] Performed By: #### 2 4323-8 ####[facility]ORATORYCLIA [id number] [address] ED NOTEon 10-07-2021 ED NOTE HNO ID: [id number] Author: Catherine Covarrubias RN Service: ? Author Type: Registered Nurse Type: ED Notes Filed: 10/07/2021 2:48 AM Note Text: Bed: 19-ED Expected date: Expected time: Means of arrival: Comments: T2-transfer Normal [facility] ED NOTE HNO ID: [id number] Author: Giuliana Rodriguez RN Service: Emergency Medicine Author Type: Registered Nurse Type: ED Notes Filed: 10/07/2021 2:36 AM Note Text: Chest tube + for bloody output Levin +clear yellow urine Normal [facility] ED NOTE Normal [facility] ED PROV NOTEon 10-07-2021 ED PROV NOTE Normal [facility] Ethanol SerPl-mCncon 022 Ethanol [Mass/Vol] mg/dL Normal <11 [facility] Comment on above: Order Comment: Speci men Type: BLOOD SPECIMENOrdering Facility: [facility] Address: [address] [place] [address] Performed By: #### 5 643-2 ####[facility] LABORATORYCLIA [id number] [place] [address] [place] HISTORY PHYSICALon HISTORY PHYSICAL Normal [facility] INR in Blood by Coagulation assayon 10-07-2021 INR Coag (Bld) [Relative time] 1.2 {INR} [facility] Work Phone: Ketones Test strip Ql (U)on 10-07-2021 Ketones Ql (U) Negative Negative [facility] Work Phone: Laboratory - Coagulationon 0 10-07-2021 aPTT Coag (Bld) [Time] 29.6 s 24.1-36.2 karthik [facility] Work Phone: PT Coag (PPP) [Time] 14.6 s 11.7-14.9 [facility] Work Phone: Magnesium SerPl-ncon 10-07 Magnesium [Mass/Vol] 2.2 mg/dL Normal 1.7-2.3 [facility] Comment on above: Order Comment: Speci men Type: BLOOD SPECIMENOrdering Facility: [facility] Address: [address] [place] [address] Performed By: #### 2 4321-2, 277-, 23365-4 ####[facility] LABORATORYCLIA [id number] [address] [place] Magnesium [Mass/Vol] 1.5 mg/dL Low 1.7-2.3 [facility] Comment on above: Order Comment: Speci men Type: BLOOD SPECIMENOrdering Facility: [facility] Address: [address] [place] [address] Performed By: #### 1 9123-9, 2776- ####[facility] LABORATORYCLIA [id number] [place] [address] [place] Mucus LM Ql (Urine sed)on Mucus Ql (Urine sed) 0 SEEN /hpf [facility] Work Phone: Nitrite Test strip Ql (U)on 10-07-2021 Nitrite Ql (U) Negative Negative [facility] Work Phone: PT panel Coag (PPP)on 2021 INR Coag (PPP) [Relative time] 1.0 {INR} Normal 0.9-1.3 [facility] Comment on above: Order Comment: Speci men Type: BLOOD SPECIMENOrdering Facility: [facility] Address: [address] [place] [id number] Result Comment: Ana min K Antagonist (VKA) Therapeutic Range: INR 2 to 3 (Target INR of 2.5)Note: For patients treated with VKA drugs, such as warfarin, the [place] [employer] 2012 Guideline recommends [...] of 3).Tierra CAST, et al. Chest 2012, 141:7S-47SNishcristel RA, et al. [facility] 2017, 70: 252-289 Performed By: #### 1 4979-9, 30139-8 ####[facility] LABORATORYCLIA [id number] [address] [place] PT Coag (PPP) [Time] 11.1 s Normal 9.7-13.0 [facility] Comment on above: Order Comment: Speci men Type: BLOOD SPECIMENOrdering Facility: [facility] Address: [address] [place] [address] Performed By: #### 1 4979-9, 23119-1 ####[facility] LABORATORYCLIA [id number] [place] [address] [place] Phosphate SerPl-mCncon 10-07 Phosphate [Mass/Vol] 3.4 mg/dL Normal 2.7-4.8 [facility] Comment on above: Order Comment: Speci men Type: BLOOD SPECIMENOrdering Facility: [facility] Address: [address] [place] [address] Performed By: #### 2 4321-2, 2777-1, 11344-0 ####[facility] LABORATORYCLIA [id number] [address] STATES OF [facility] Phosphate [Mass/Vol] 3.4 mg/dL Normal 2.7-4.8 [facility] Comment on above: Order Comment: Speci men Type: BLOOD SPECIMENOrdering Facility: [facility] Address: [address] [place] [address] Performed By: #### 1 9123-9, 2777-1 ####[facility] LABORATORYCLIA [id number] [place] [address] [place] Protein Test strip Ql (U)on 10-07-2021 Protein Ql (U) 15 mg/dl Negative [facility] Work Phone: SARS-CoV-2 RNA Resp Ql LEONA+p robeon 10-07-2021 SARS-CoV-2 (COVID-19) RNA LEONA+probe Ql (Resp) COVID 19 RESULT: SARS-CoV-2 (Agent of COVID-19) Not Detected by RT-PCR or equivalent method. This test has been authorized by FDA under an Emergency Use Authorization (EUA). Normal [facility] Comment on above: Performed By: #### 9 4500-6 ####[facility] LABORATORYCLIA [id number] [place] [address] [place] STAPH AUREUS PCRon 2 S. aureus and MRSA panel LEONA+probe (Nose) Normal Negative [facility] Comment on above: Order Comment: Speci men Type: SWAB OF INTERNAL NOSEOrdering Facility: [facility] Address: [address] [place] [address] Result Comment: Nega tive for Staphylococcus aureus by PCR.Negative for MRSA by PCR Performed By: #### S APCR ####[facility] LABORATORYCLIA [id number] [address] [place] Squamous epithelial cells de tection in urine sediment by light microscopyon 10-07-2021 Epithelial cells.squamous LM Ql (Urine sed) 0 SEEN /hpf 5-10 [facility] Work Phone: TOX SCREEN ROUT URon 022 Amphetamines Confirm (U) [Mass/Vol] Negative Normal Negative [facility] Comment on above: Order Comment: Speci men Type: URINE SPECIMENOrdering Facility: [facility] Address: [address] [place] [address] Result Comment: Cuto ff threshold at 1000 ng/mL. Performed By: #### U TOX2 ####[facility] LABORATORYCLIA [id number] [place] [address] [place] BARBITURATES, URINE Negative Normal Negative [facility] Comment on above: Order Comment: Speci men Type: URINE SPECIMENOrdering Facility: [facility] Address: [address] [place] [address] Result Comment: Cuto ff threshold at 200 ng/mL. Performed By: #### U TOX2 ####[facility] LABORATORYCLIA [id number] [place] [address] [place] BENZODIAZEPINES, UR Negative Normal Negative [facility] Comment on above: Order Comment: Speci men Type: URINE SPECIMENOrdering Facility: [facility] Address: [address] [place] [address] Result Comment: Cuto ff threshold at 200 ng/mL. Performed By: #### U TOX2 ####[facility] LABORATORYCLIA [id number] [place] [address] [place] CANNABINOIDS,URINE Negative Normal Negative [facility] Comment on above: Order Comment: Speci men Type: URINE SPECIMENOrdering Facility: [facility] Address: [address] [place] [address] Result Comment: Cuto ff threshold at 50 ng/mL. Performed By: #### U TOX2 ####[facility]ORATORYCLIA [id number] [address] STATES OF [facility] Cocaine Ql (U) Negative Normal Negative [facility] Comment on above: Order Comment: Speci men Type: URINE SPECIMENOrdering Facility: [facility] Address: [address] [place] [address] Result Comment: Cuto ff threshold at 300 ng/mL. Performed By: #### U TOX2 ####[facility]ORATORYCLIA [id number] [address] Ethanol (U) [Mass/Vol] <11 Normal <11 [facility] Comment on above: Order Comment: Speci men Type: URINE SPECIMENOrdering Facility: [facility] Address: [address] [place] [address] Performed By: #### U TOX2 ####[facility]ORATORYCLIA [id number] [address] Opiates Screen Ql (U) Positive Abnormal Negative [facility] Comment on above: Order Comment: Speci men Type: URINE SPECIMENOrdering Facility: [facility] Address: [address] [place] [address] Result Comment: Cuto ff threshold at 300 ng/mL. Performed By: #### U TOX2 ####[facility] LABORATORYCLIA [id number] [address] [place] oxyCODONE cutoff Screen (U) [Mass/Vol] Negative Normal Negative [facility] Comment on above: Order Comment: Speci men Type: URINE SPECIMENOrdering Facility: [facility] Address: [address] [place] [place] [address] Result Comment: Cuto ff threshold at 100 ng/mL. Performed By: #### U TOX2 ####[facility]ATORYCLIA [id number] [address] [place] Phencyclidine Ql (U) Negative Normal Negative [facility] Comment on above: Order Comment: Speci men Type: URINE SPECIMENOrdering Facility: [facility] Address: [address] [place] [address] Result Comment: Cuto ff threshold at 25 ng/mL. Performed By: #### U TOX2 ####[facility] LABORATORYCLIA [id number] [address] TYPE + SCREENon 10-07-2021 ABO A Normal [facility] Comment on above: Order Comment: Speci men Type: BLOOD SPECIMENOrdering Facility: [facility] Address: [address] [place] [address] Performed By: #### T SCR ####[facility] BLOOD BANKCLIA [id number] [address] HISTORICAL AB SCR STATUS Negative [facility] Comment on above: Order Comment: Speci men Type: BLOOD SPECIMENOrdering Facility: [facility] Address: [address] [place] [address] Performed By: #### T SCR ####[facility] BLOOD BANKCLIA [id number] [address] Rh Nom (Bld) Positive Normal [facility] Comment on above: Order Comment: Speci men Type: BLOOD SPECIMENOrdering Facility: [facility] Address: [address] [place] [address] Performed By: #### T SCR ####[facility] BLOOD BANKCLIA [id number] [address] TYPE AND SCREEN EXPIRATION 10/10/2021 23:59 Normal [facility] Comment on above: Order Comment: Speci men Type: BLOOD SPECIMENOrdering Facility: [facility] Address: [address] [place] [address] Performed By: #### T SCR ####[facility] BLOOD BANKCLIA [id number] [address] Urinalysis complete panel (U )on 10-07-2021 Bilirubin Ql (U) Negative Normal Negative [facility] Comment on above: Order Comment: Speci men Type: URINE SPECIMENOrdering Facility: [facility] Address: [address] [place] [address] Performed By: #### 2 4356-8 ####[facility] LABORATORYCLIA [id number] [address] Clarity (Unsp spec) Clear Normal Clear [facility] Comment on above: Order Comment: Speci men Type: URINE SPECIMENOrdering Facility: [facility] Address: [address] [place] [address] Performed By: #### 2 4356-8 ####[facility] LABORATORYCLIA [id number] [address] Color (U) Light Yellow Normal yellow [facility] Comment on above: Order Comment: Speci men Type: URINE SPECIMENOrdering Facility: [facility] Address: [address] [place] [address] Performed By: #### 2 4356-8 ####[facility] LABORATORYCLIA [id number] [address] Glucose Test strip (U) [Mass/Vol] Negative Normal Negative [facility] Comment on above: Order Comment: Speci men Type: URINE SPECIMENOrdering Facility: [facility] Address: [facility] [place] [address] Performed By: #### 2 4356-8 ####[facility] LABORATORYCLIA [id number] [address] Hemoglobin Ql (U) Negative Normal Negative [facility] Comment on above: Order Comment: Speci men Type: URINE SPECIMENOrdering Facility: [facility] Address: [address] [place] [address] Performed By: #### 2 4356-8 ####[facility]ORYCLIA [id number] [address] OF [facility] Ketones Ql (U) Negative Normal Negative [facility] Comment on above: Order Comment: Speci men Type: URINE SPECIMENOrdering Facility: [facility] Address: [address] [place] [address] Performed By: #### 2 4356-8 ####[facility] LABORATORYCLIA [id number] [address] Leukocyte esterase Test strip Ql (U) 500 Karson/mL Abnormal Negative [facility] Comment on above: Order Comment: Speci men Type: URINE SPECIMENOrdering Facility: [facility] Address: [address] [place] [address] Performed By: #### 2 4356-8 ####[facility] LABORATORYCLIA [id number] [address] [place] Nitrite Ql (U) Negative Normal Negative [facility] Comment on above: Order Comment: Speci men Type: URINE SPECIMENOrdering Facility: [facility] Address: [address] [place] [address] Performed By: #### 2 4356-8 ####[facility] LABORATORYCLIA [id number] [address] [place] pH (U) 6.5 [pH] Normal 5.0-8.0 [facility] Comment on above: Order Comment: Speci men Type: URINE SPECIMENOrdering Facility: [facility] Address: [address] [place] [address] Performed By: #### 2 4356-8 ####[facility] LABORATORYCLIA [id number] [place] [address] [place] Protein (U) [Mass/Vol] Negative Normal Negative [facility] Comment on above: Order Comment: Speci men Type: URINE SPECIMENOrdering Facility: [facility] Address: [address] [place] [address] Performed By: #### 2 4356-8 ####[facility]ORATORYCLIA [id number] [address] RBC LM.HPF (Urine sed) [#/Area] 0-3 /HPF Normal 0-3 /HPF [facility] Comment on above: Order Comment: Speci men Type: URINE SPECIMENOrdering Facility: [facility] Address: [address] [place] [address] Performed By: #### 2 4356-8 ####[facility] LABORATORYCLIA [id number] [address] Specific gravity (U) [Rel density] >1.040 High 1.005-1.030 [facility] Comment on above: Order Comment: Speci men Type: URINE SPECIMENOrdering Facility: [facility] Address: [address] [place] [address] Performed By: #### 2 4356-8 ####[facility] LABORATORYCLIA [id number] [address] Urobilinogen Ql (U) Normal Normal Negative [facility] Comment on above: Order Comment: Speci men Type: URINE SPECIMENOrdering Facility: [facility] Address: [address] [place] [address] Performed By: #### 2 4356-8 ####[facility] LABORATORYCLIA [id number] [address] WBC LM.HPF (Urine sed) [#/Area] /[HPF] Abnormal 0-5 /HPF [facility] Comment on above: Order Comment: Speci men Type: URINE SPECIMENOrdering Facility: [facility] Address: [address] [place] [address] Performed By: #### 2 4356-8 ####[facility] LABORATORYCLIA [id number] [address] Urine blood detectionon 06- RBC Ql (U) Negative Negative [facility] Work Phone: RBC Ql (U) 0-5 SEEN /hpf 0-5 [facility] Work Phone: Urine clarityon 10-07-2021 Clarity (U) Clear Clear [facility] Work Phone: Urine color determinationon 10-07-2021 Color (U) Yellow Yellow [facility] Work Phone: Urine glucose detectionon Glucose Ql (U) Normal mg/dl Normal [facility] Work Phone: Urine leukocyte esterase det ection by dipstickon 10-07-2021 Leukocyte esterase Test strip Ql (U) 100 /ul Negative [facility] Work Phone: Urine pHon 10-07-2021 pH (U) 7.0 [pH] 5.0 - 8.0 [facility] Work Phone: Urine sediment bacteria coun t by microscopy (number/high power field)on 10-07-2021 Bacteria LM.HPF (Urine sed) [#/Area] 3 /[HPF] None Seen [facility] Work Phone: Urine specific gravity measu rementon 10-07-2021 Specific gravity (U) [Rel density] 1.010 1.002-1.030 [facility] Work Phone: Urobilinogen Auto test strip Ql (U)on 10-07-2021 Urobilinogen Ql (U) Normal mg/dl Normal [facility] Work Phone: XR CHEST 1V FRONTALon 2021 XR CHEST 1V FRONTAL Normal [facility] XR KNEE 2V AP/LAT RTon 10-07 XR KNEE 2V AP/LAT RT Normal [facility] aPTT PPPon 10-07-2021 aPTT Coag (PPP) [Time] 26.3 s Normal 23.0-32.4 [facility] Comment on above: Order Comment: Speci men Type: BLOOD SPECIMENOrdering Facility: [facility] Address: [address] [place] [id number] Performed By: #### 1 4979-9, 14318-9 ####[facility] LABORATORYCLIA [id number] [place] [address] [place] Absolute lymphocyte counton 10-06-2021 Lymphocytes Auto (Unsp spec) [#/Vol] 0.86 10*3/uL 0.83-4.51 [facility] Work Phone: Basophil percentageon 2021 Basophils/100 WBC (Bld) 0.3 % 0-1 [facility] Work Phone: Bilirubin [Mass/Vol] 0.50 mg/dL 0.20-1.00 [facility] Work Phone: Comment on above: For patients on eltr ombopag therapy, use of Dimension [place] TBIL is not recommended. Chloride [Moles/Vol] 96 mmol/L 98-107 [facility] Work Phone: Eosinophils/100 WBC (Bld) 0.3 % 0-5 [facility] Work Phone: Glucose [Mass/Vol] 169 mg/dL 74-106 [facility] Work Phone: Comment on above: Fasting Glucose resu lt greater than or equal to 126 mg/dL suggests DIABETES MELLITUS per A.D.A. criteria. Neutrophils (Bld) [#/Vol] 28.5 10*3/uL 2.0-7.7 [facility] Work Phone: Neutrophils/100 WBC (Bld) 90.5 % 47-70 [facility] Work Phone: Potassium [Moles/Vol] 3.1 mmol/L 3.5-5.1 [facility] Work Phone: Protein [Mass/Vol] 6.5 g/dL 6.4-8.2 [facility] Work Phone: Sodium [Moles/Vol] 130 mmol/L 136-145 [facility] Work Phone: WBC (Bld) [#/Vol] 31.5 10*3/uL 4.4-11.0 [facility] Work Phone: Comment on above: CRITICAL VALUE VERIF IED. CALLED TO GIANNA CHAIREZ10/06/21 8135 Paul Josh Che.RESULTS READ BACK BY SAME . Blood erythrocytes count (nu mber/volume)on 10-06-2021 RBC (Bld) [#/Vol] 3.16 10*6/uL 4.2-5.4 [facility] Work Phone: [phone] Blood hemoglobin measurement (mass/volume)on 10-06-2021 Hemoglobin (Bld) [Mass/Vol] 10.3 g/dL 12.0-15.0 [facility] Work Phone: [phone] Blood lymphocytes/100 leukoc yteson 10-06-2021 Lymphocytes/100 WBC (Bld) 2.7 % 19-41 [facility] Work Phone: [phone] Blood manual differential co mment interpretation (narrative result)on 10-06-2021 Manual differential comment Donnie (Bld) [Interp] SCANNED [facility] Work Phone: [phone] Blood monocytes/100 leukocyt eson 10-06-2021 Monocytes/100 WBC (Bld) 5.3 % 0-10 [facility] Work Phone: [phone] Blood platelet mean volumeon 10-06-2021 Platelet mean volume (Bld) [Entitic vol] 9.9 fL 6.2-12.0 [facility] Work Phone: [phone] Determination of erythrocyte mean corpuscular volume (MCV)on 10-06-2021 MCV (RBC) [Entitic vol] 95.6 fL 81-99 [facility] Work Phone: [phone] Hematocrit Auto (Bld) [Volum e fraction]on 10-06-2021 Hematocrit (Bld) [Volume fraction] 30.2 % 37-47 [facility] Work Phone: [phone] Laboratory - Chemistry and C hemistry - challengeon 10-06-2021 ALP [Catalytic activity/Vol] 62 U/L 45-117 [facility] Work Phone: [phone] ALT [Catalytic activity/Vol] 26 U/L 13-56 [facility] Work Phone: CO2 [Moles/Vol] 27.0 mmol/L 21.0-32.0 [facility] Work Phone: [phone] Globulin (S) [Mass/Vol] 2.9 g/dL 2.2-4.2 [facility] Work Phone: [phone] Urea nitrogen/Creatinine [Mass ratio] 23.8 mg/mg 10-20 [facility] Work Phone: [phone] Laboratory - Hematology and Cell countson 10-06-2021 Erythrocyte distribution width (RBC) [Entitic vol] 45.3 fL 35.1-43.9 [facility] Work Phone: [phone] Erythrocyte distribution width (RBC) [Ratio] 12.8 % 11.6-14.6 [facility] Work Phone: [phone] Immature granulocytes/100 WBC (Bld) 0.900 % 0.0-0.9 [facility] Work Phone: [phone] Comment on above: IG% - Immature Granu locytes (promyelocytes, myelocytes and metamyelocytes) > 1% indicates that a LEFT SHIFT is Present. MCH (RBC) [Entitic mass] 32.6 pg 27.0-32.0 [facility] Work Phone: [phone] Nucleated RBC/100 WBC (Bld) [Ratio] 0 % 0-5 [facility] Work Phone: [phone] MCHC Auto (RBC) [Mass/Vol]on 10-06-2021 MCHC (RBC) [Mass/Vol] 34.1 g/dL 32-36 [facility] Work Phone: [phone] Panel Informationon 10-06 Estimated Creatinine Clearance Calc 54.70 ml/min [facility] Work Phone: [phone] Estimated GFR (MDRD) Amer 85 mL/min >60 [facility] Work Phone: [phone] Comment on above: GFR Calc Estimated GFR (MDRD) Non-Af Amer 70 mL/min >60 [facility] Work Phone: [phone] Comment on above: Non- GFR Calc Ethyl Alcohol Level < 3.0 mg/dL [facility] Work Phone: [phone] Comment on above: The serum:whole bloo d ethanol ratio is approximately 1.14and varies slightly with hematocrit. Medical Alcohol reference interval and critical value innon-tolerant individuals; 50 - 100 Impairment 100 Intoxication 100 - 250 Severe Poisoning 250 - 400 Deep/possible fatal coma Platelets bldon 10-06-2021 Platelets (Bld) [#/Vol] 317 10*3/uL 150-450 [facility] Work Phone: Review by pathologiston 09-20 Pathologist review Donnie (Unsp spec) [Interp] August july [facility] Work Phone: [phone] Pathologist review Donnie (Unsp spec) [Interp] Reviewed [facility] Work Phone: [phone] Comment on above: Previous reported re sult: Nohelia mcdowell Edited by: RGOOD on 10/09/21:1330Neutrophilic leukocytosis.Normocytic anemia.Clinical correlation necessary.Greg Guerin M.D. 10/09/21 AMENDED REPORT 10/09/21 1330 PATH REV previously reported as: Nohelia mcdowell Serum or plasma albumin rajni urement (mass/volume)on 10-06-2021 Albumin [Mass/Vol] 3.6 g/dL 3.2-5.0 [facility] Work Phone: [phone] Serum or plasma albumin/glob ulin mass ratioon 10-06-2021 Albumin/Globulin [Mass ratio] 1.2 {ratio} 0.9-2.4 [facility] Work Phone: [phone] Serum or plasma calcium rajni urement (mass/volume)on 10-06-2021 Calcium [Mass/Vol] 8.2 mg/dL 8.5-10.1 [facility] Work Phone: [phone] Serum or plasma creatinine m easurement (mass/volume)on 10-06-2021 Creatinine [Mass/Vol] 0.84 mg/dL 0.55-1.02 [facility] Work Phone: Comment on above: The validity of the calculated GFR & GFRAA in patients over 70 years has not been determined. Clinical correlation is essential. Serum or plasma urea nitroge n measurement (mass/volume)on 10-06-2021 Urea nitrogen [Mass/Vol] 20 mg/dL 7-18 [facility] Work Phone: Thin prep Papanicolaou smear with manual screeningon 10-06-2021 Thin prep Papanicolaou smear with manual screening 31 U/L 15-37 [facility] Work Phone: [phone] Thin prep Papanicolaou smear with manual screening 7 5-15 [facility] Work Phone: [phone] Laboratory - Chemistry and C hemistry - challengeon 07-28-2021 Free T4 [Mass/Vol] 1.04 ng/dL 0.76-1.46 [facility] Work Phone: No Panel Informationon 07-28 Thyroid Stimulating Hormone (TSH) 2.21 uIU/mL 0.358-3.74 [facility] Work Phone: Influenza virus A and B RNA and SARS-CoV-2 (COVID-19) N gene panel LEONA+probe (Resp)on 07-13-2021 FLUAV RNA LEONA+probe Ql (Unsp spec) Negative Negative for Influenza A by RT-PCR [facility] FLUBV RNA LEONA+probe Ql (Unsp spec) Negative Negative for Influenza B by RT-PCR [facility] SARS-CoV-2 (COVID-19) RNA LEONA+probe Ql (Resp) SARS-CoV-2 (Agent of COVID-19) Not Detected by RT-PCR or equivalent method. Not Detected [facility] Absolute lymphocyte counton 06-11-2021 Lymphocytes Auto (Unsp spec) [#/Vol] 1.63 10*3/uL 0.83-4.51 [facility] Work Phone: Basophil percentageon 2021 Basophil percentage 0 SEEN /hpf 0-5 [facility] Work Phone: Basophils/100 WBC (Bld) 0.5 % 0-1 [facility] Work Phone: [phone] Chloride [Moles/Vol] 99 mmol/L 98-107 [facility] Work Phone: Eosinophils/100 WBC (Bld) 1.4 % 0-5 [facility] Work Phone: Glucose [Mass/Vol] 110 mg/dL 74-106 [facility] Work Phone: Comment on above: Fasting Glucose resu lt from 100 to 125 mg/dL suggests IMPAIRED HOMEOSTASIS per A.D.A. criteria. Neutrophils (Bld) [#/Vol] 9.6 10*3/uL 2.0-7.7 [facility] Work Phone: Neutrophils/100 WBC (Bld) 78.8 % 47-70 [facility] Work Phone: Potassium [Moles/Vol] 3.8 mmol/L 3.5-5.1 [facility] Work Phone: Sodium [Moles/Vol] 135 mmol/L 136-145 [facility] Work Phone: WBC (Bld) [#/Vol] 12.1 10*3/uL 4.4-11.0 [facility] Work Phone: Bilirubin Test strip Ql (U)o n 06-11-2021 Bilirubin Ql (U) Negative Negative [facility] Work Phone: Blood erythrocytes count (nu mber/volume)on 06-11-2021 RBC (Bld) [#/Vol] 3.84 10*6/uL 4.2-5.4 [facility] Work Phone: Blood hemoglobin measurement (mass/volume)on 06-11-2021 Hemoglobin (Bld) [Mass/Vol] 12.6 g/dL 12.0-15.0 [facility] Work Phone: Blood lymphocytes/100 leukoc yteson 06-11-2021 Lymphocytes/100 WBC (Bld) 13.4 % 19-41 [facility] Work Phone: Blood monocytes/100 leukocyt eson 06-11-2021 Monocytes/100 WBC (Bld) 5.6 % 0-10 [facility] Work Phone: [phone] Blood platelet mean volumeon 06-11-2021 Platelet mean volume (Bld) [Entitic vol] 10.4 fL 6.2-12.0 [facility] Work Phone: [phone] Determination of erythrocyte mean corpuscular volume (MCV)on 06-11-2021 MCV (RBC) [Entitic vol] 94.5 fL 81-99 [facility] Work Phone: [phone] Hematocrit Auto (Bld) [Volum e fraction]on 06-11-2021 Hematocrit (Bld) [Volume fraction] 36.3 % 37-47 [facility] Work Phone: [phone] Ketones Test strip Ql (U)on 06-11-2021 Ketones Ql (U) Negative Negative [facility] Work Phone: [phone] Laboratory - Chemistry and C hemistry - challengeon 06-11-2021 CO2 [Moles/Vol] 28.0 mmol/L 21.0-32.0 [facility] Work Phone: [phone] Urea nitrogen/Creatinine [Mass ratio] 27.0 mg/mg - [facility] Work Phone: [phone] Laboratory - Hematology and Cell countson 06-11-2021 Erythrocyte distribution width (RBC) [Entitic vol] 45.8 fL 35.1-43.9 [facility] Work Phone: [phone] Erythrocyte distribution width (RBC) [Ratio] 13.2 % 11.6-14.6 [facility] Work Phone: [phone] Immature granulocytes/100 WBC (Bld) 0.300 % 0.0-0.9 [facility] Work Phone: [phone] Comment on above: IG% - Immature Granu locytes (promyelocytes, myelocytes and metamyelocytes) > 1% indicates that a LEFT SHIFT is Present. MCH (RBC) [Entitic mass] 32.8 pg 27.0-32.0 [facility] Work Phone: [phone] Nucleated RBC/100 WBC (Bld) [Ratio] 0 % 0-5 [facility] Work Phone: MCHC Auto (RBC) [Mass/Vol]on 06-11-2021 MCHC (RBC) [Mass/Vol] 34.7 g/dL 32-36 [facility] Work Phone: Mucus LM Ql (Urine sed)on Mucus Ql (Urine sed) 0 SEEN /hpf [facility] Work Phone: [phone] Nitrite Test strip Ql (U)on 06-11-2021 Nitrite Ql (U) Negative Negative [facility] Work Phone: No Panel Informationon 06-11 Estimated Creatinine Clearance Calc 42.62 ml/min [facility] Work Phone: Estimated GFR (MDRD) Amer 149 mL/min >60 [facility] Work Phone: Comment on above: GFR Calc Estimated GFR (MDRD) Non-Af Amer 123 mL/min >60 [facility] Work Phone: Comment on above: Non- GFR Calc Platelets bldon 06-11-2021 Platelets (Bld) [#/Vol] 301 10*3/uL 150-450 [facility] Work Phone: Protein Test strip Ql (U)on 06-11-2021 Protein Ql (U) Negative Negative [facility] Work Phone: Serum or plasma calcium rajni urement (mass/volume)on 06-11-2021 Calcium [Mass/Vol] 9.4 mg/dL 8.5-10.1 [facility] Work Phone: [phone] Serum or plasma creatinine m easurement (mass/volume)on 06-11-2021 Creatinine [Mass/Vol] 0.52 mg/dL 0.55-1.02 [facility] Work Phone: Comment on above: The validity of the calculated GFR & GFRAA in patients over 70 years has not been determined. Clinical correlation is essential. Serum or plasma urea nitroge n measurement (mass/volume)on 06-11-2021 Urea nitrogen [Mass/Vol] 14 mg/dL 7-18 [facility] Work Phone: Squamous epithelial cells de tection in urine sediment by light microscopyon 06-11-2021 Epithelial cells.squamous LM Ql (Urine sed) 0 SEEN /hpf 5-10 [facility] Work Phone: Thin prep Papanicolaou smear with manual screeningon 06-11-2021 Thin prep Papanicolaou smear with manual screening 8 5-15 [facility] Work Phone: Urine blood detectionon - RBC Ql (U) Negative Negative [facility] Work Phone: RBC Ql (U) 0 SEEN /hpf 0-5 [facility] Work Phone: Urine clarityon 06-11-2021 Clarity (U) Clear Clear [facility] Work Phone: Urine color determinationon 06-11-2021 Color (U) Yellow Yellow [facility] Work Phone: Urine glucose detectionon Glucose Ql (U) Normal mg/dl Normal [facility] Work Phone: Urine leukocyte esterase det ection by dipstickon 06-11-2021 Leukocyte esterase Test strip Ql (U) Negative Negative [facility] Work Phone: Urine pHon 06-11-2021 pH (U) 7.0 [pH] 5.0 - 8.0 [facility] Work Phone: Urine sediment bacteria coun t by microscopy (number/high power field)on 06-11-2021 Bacteria LM.HPF (Urine sed) [#/Area] 0 /[HPF] None Seen [facility] Work Phone: Urine specific gravity measu rementon 06-11-2021 Specific gravity (U) [Rel density] 1.010 1.002-1.030 [facility] Work Phone: Urobilinogen Auto test strip Ql (U)on 06-11-2021 Urobilinogen Ql (U) Normal mg/dl Normal [facility] Work Phone: Absolute lymphocyte counton 05-21-2021 Lymphocytes Auto (Unsp spec) [#/Vol] 1.29 10*3/uL 0.83-4.51 [facility] Work Phone: Basophil percentageon 2021 Basophils/100 WBC (Bld) 0.7 % 0-1 [facility] Work Phone: Chloride [Moles/Vol] 98 mmol/L 98-107 [facility] Work Phone: Eosinophils/100 WBC (Bld) 2.5 % 0-5 [facility] Work Phone: Glucose [Mass/Vol] 119 mg/dL 74-106 [facility] Work Phone: Comment on above: Fasting Glucose resu lt from 100 to 125 mg/dL suggests IMPAIRED HOMEOSTASIS per A.D.A. criteria. Neutrophils (Bld) [#/Vol] 6.4 10*3/uL 2.0-7.7 [facility] Work Phone: Neutrophils/100 WBC (Bld) 73.4 % 47-70 [facility] Work Phone: Potassium [Moles/Vol] 3.5 mmol/L 3.5-5.1 [facility] Work Phone: Sodium [Moles/Vol] 132 mmol/L 136-145 [facility] Work Phone: WBC (Bld) [#/Vol] 8.8 10*3/uL 4.4-11.0 [facility] Work Phone: Blood erythrocytes count (nu mber/volume)on 05-21-2021 RBC (Bld) [#/Vol] 3.66 10*6/uL 4.2-5.4 [facility] Work Phone: Blood hemoglobin measurement (mass/volume)on 05-21-2021 Hemoglobin (Bld) [Mass/Vol] 11.5 g/dL 12.0-15.0 [facility] Work Phone: Blood lymphocytes/100 leukoc yteson 05-21-2021 Lymphocytes/100 WBC (Bld) 14.7 % 19-41 [facility] Work Phone: [phone] Blood monocytes/100 leukocyt eson 05-21-2021 Monocytes/100 WBC (Bld) 8.5 % 0-10 [facility] Work Phone: [phone] Blood platelet mean volumeon 05-21-2021 Platelet mean volume (Bld) [Entitic vol] 10.7 fL 6.2-12.0 [facility] Work Phone: [phone] Determination of erythrocyte mean corpuscular volume (MCV)on 05-21-2021 MCV (RBC) [Entitic vol] 94.0 fL 81-99 [facility] Work Phone: [phone] Hematocrit Auto (Bld) [Volum e fraction]on 05-21-2021 Hematocrit (Bld) [Volume fraction] 34.4 % 37-47 [facility] Work Phone: [phone] Laboratory - Chemistry and C hemistry - challengeon 05-21-2021 CO2 [Moles/Vol] 27.0 mmol/L 21.0-32.0 [facility] Work Phone: [phone] Urea nitrogen/Creatinine [Mass ratio] 31.0 mg/mg 10-20 [facility] Work Phone: [phone] Laboratory - Hematology and Cell countson 05-21-2021 Erythrocyte distribution width (RBC) [Entitic vol] 44.3 fL 35.1-43.9 [facility] Work Phone: [phone] Erythrocyte distribution width (RBC) [Ratio] 12.7 % 11.6-14.6 [facility] Work Phone: [phone] Immature granulocytes/100 WBC (Bld) 0.200 % 0.0-0.9 [facility] Work Phone: [phone] Comment on above: IG% - Immature Granu locytes (promyelocytes, myelocytes and metamyelocytes) > 1% indicates that a LEFT SHIFT is Present. MCH (RBC) [Entitic mass] 31.4 pg 27.0-32.0 [facility] Work Phone: Nucleated RBC/100 WBC (Bld) [Ratio] 0 % 0-5 [facility] Work Phone: [phone] MCHC Auto (RBC) [Mass/Vol]on 05-21-2021 MCHC (RBC) [Mass/Vol] 33.4 g/dL 32-36 [facility] Work Phone: No Panel Informationon 05-21 Estimated Creatinine Clearance Calc 46.20 ml/min [facility] Work Phone: [phone] Estimated GFR (MDRD) Amer 174 mL/min >60 [facility] Work Phone: [phone] Comment on above: GFR Calc Estimated GFR (MDRD) Non-Af Amer 144 mL/min >60 [facility] Work Phone: [phone] Comment on above: Non- GFR Calc Ethyl Alcohol Level < 3.0 mg/dL [facility] Work Phone: Comment on above: The serum:whole bloo d ethanol ratio is approximately 1.14and varies slightly with hematocrit. Medical Alcohol reference interval and critical value innon-tolerant individuals; 50 - 100 Impairment 100 Intoxication 100 - 250 Severe Poisoning 250 - 400 Deep/possible fatal coma Platelets bldon 05-21-2021 Platelets (Bld) [#/Vol] 267 10*3/uL 150-450 [facility] Work Phone: [phone] Serum or plasma calcium rajni urement (mass/volume)on 05-21-2021 Calcium [Mass/Vol] 8.2 mg/dL 8.5-10.1 [facility] Work Phone: [phone] Serum or plasma creatinine m easurement (mass/volume)on 05-21-2021 Creatinine [Mass/Vol] 0.45 mg/dL 0.55-1.02 [facility] Work Phone: [phone] Comment on above: The validity of the calculated GFR & GFRAA in patients over 70 years has not been determined. Clinical correlation is essential. Serum or plasma urea nitroge n measurement (mass/volume)on 05-21-2021 Urea nitrogen [Mass/Vol] 14 mg/dL 7-18 [facility] Work Phone: Thin prep Papanicolaou smear with manual screeningon 05-21-2021 Thin prep Papanicolaou smear with manual screening 7 5-15 [facility] Work Phone: XR Humerus - left AP and Lat eralon 03-17-2021 IMPRESSION: Mildly comminuted fracture of the left humeral diaphysis. Overlying soft tissue swelling. Gis Manager: PSCB Transcribe Date/Time: Mar 17 2021 2:43P Dictated by : ARISTEO HODGE MD This examination was interpreted and the report reviewed and electronically signed by: ARISTEO HODGE MD on Mar 17 2021 2:45PM [facility] DIVISION OF RADIOLOGY * * *Final [...] left humeral diaphysis. Overlying soft tissue swelling. Gis Manager: FILIBERTO Transcribe Date/Time: Mar 17 2021 2:43P Dictated by : ARISTEO HODGE MD This examination was interpreted and the report reviewed and electronically signed by: ARISTEO HODGE MD on Mar 17 2021 2:45PM EST [facility] Radiology Study observation (narrative) Lakisha mckenna [facility] XR Humerus - left AP and Lat eralOrdered By: Ccf Provider on 03-17-2021 [facility] Add On Lab Teston 04-17-2020 Sodium [Moles/Vol] Accepted [place], [place] Comment on above: Specimen available & acceptable for analysis. Test Performed by [facility], [address] [place] [id number] [place] [address] Sodium [Moles/Vol] Accepted [place] Comment on above: Specimen available & acceptable for analysis. Test Performed by [facility], [facility] [place], [place] [id number] [place] [address] Add on test from HISon 04-17 Add on test from HIS Accepted Normal [facility] Comment on above: Result Comment: Spec imen available & acceptable for analysis. Performed By: #### A DDON ####[facility] [place] [address] Add on test from HIS Accepted Normal [facility] Comment on above: Result Comment: Spec imen available & acceptable for analysis. Performed By: #### A DDON #### [facility] [address] [place] [address] Albuminon 04-17-2020 Albumin [Mass/Vol] 3.2 g/dL Low 3.5 - 5 g/dL [place] Interpretation and review of laboratory results Abnormal [place] Test Performed by [facility], [facility] [place] [address] [place] Albumin, Serumon 04-17-2020 Albumin [Mass/Vol] 3.2 g/dL Low 3.5-5.0 [facility] Comment on above: Performed By: #### B MP3M, TSH5, MG3, HEMDF, ALB3, B12, PHOS3 ####[place] [address] [facility] [place] Basic Metabolic Panelon 12-2 Anion gap [Moles/Vol] 6 Normal [facility] Comment on above: Performed By: #### B MP3M, TSH5, MG3, HEMDF, ALB3, B12, PHOS3 ####[place] [address] [facility] [place] Calcium [Mass/Vol] 6.8 mg/dL Low 8.4-10.4 [facility] Comment on above: Performed By: #### B MP3M, TSH5, MG3, HEMDF, ALB3, B12, PHOS3 ####[place] [address] [place], [place] CO2 [Moles/Vol] 29 mmol/L Normal 22-30 [facility] Comment on above: Performed By: #### B MP3M, TSH5, MG3, HEMDF, ALB3, B12, PHOS3 ####[place] [address] [facility] [place] Glucose [Mass/Vol] 103 mg/dL High 70-100 [facility] Comment on above: Performed By: #### B MP3M, TSH5, MG3, HEMDF, ALB3, B12, PHOS3 ####[place] [address] [facility] Urea nitrogen [Mass/Vol] 13 mg/dL Normal 7-20 [facility] Comment on above: Performed By: #### B MP3M, TSH5, MG3, HEMDF, ALB3, B12, PHOS3 ####[place] [address] [place] Creatinine [Mass/Vol] 0.56 mg/dL Normal 0.52-1.25 [facility] Comment on above: Performed By: #### B MP3M, TSH5, MG3, HEMDF, ALB3, B12, PHOS3 ####[facility] [id number] [place] [address] GFR/1.73 sq M predicted among blacks MDRD (S/P/Bld) [Vol rate/Area] mL/min/{1.73_m2} Normal >60 [facility] Comment on above: Performed By: #### B MP3M, TSH5, MG3, HEMDF, ALB3, B12, PHOS3 ####[place] [address] [place] [address] GFR/1.73 sq M predicted among non-blacks MDRD (S/P/Bld) [Vol rate/Area] mL/min/{1.73_m2} Normal >60 [facility] Comment on above: Result Comment: KDIG O [...] MP3M, TSH5, MG3, HEMDF, ALB3, B12, PHOS3 ####[facility] [place] [address] Chloride [Moles/Vol] 100 mmol/L Normal 98-107 [facility] Comment on above: Performed By: #### B MP3M, TSH5, MG3, HEMDF, ALB3, B12, PHOS3 ####[facility] [place] [address] Potassium [Moles/Vol] 3.3 mmol/L Low 3.5-5.1 [facility] Comment on above: Performed By: #### B MP3M, TSH5, MG3, HEMDF, ALB3, B12, PHOS3 ####[facility] [place], [place] Sodium [Moles/Vol] 135 mmol/L Normal 135-145 [facility] Comment on above: Performed By: #### B MP3M, TSH5, MG3, HEMDF, ALB3, B12, PHOS3 ####[facility] [place], [place] Basic Metabolic Panel w/ Ref jason to MG 04-17-2020 Anion gap [Moles/Vol] 6 mmol/L [place] Calcium [Mass/Vol] 6.8 mg/dL Low 8.4 - 10. 4 mg/dL [place] Chloride [Moles/Vol] 100 mmol/L 98 - 10 7 mmol/L [place] CO2 [Moles/Vol] 29 mmol/L 22 - 30 mmol/L [place] Creatinine [Mass/Vol] 0.56 mg/dL 0.52 - 1.25 mg/dL [place] EGFR IF NonAfrican [place]ogolese >90.0 >60 mL/min [place] Comment on above: KDIGO guidelines pro [...] MDRD (S/P/Bld) [Vol rate/Area] mL/min/{1.73_m2} >60 mL/min [place] Glucose [Mass/Vol] 103 mg/dL High 70 - 100 mg/dL [place] Interpretation and review of laboratory results Abnormal [place] Potassium [Moles/Vol] 3.3 mmol/L Low 3.5 - 5.1 mmol/L [place] Sodium [Moles/Vol] 135 mmol/L 135 - 145 mmol/L [place] Urea nitrogen [Mass/Vol] 13 mg/dL 7 - 20 mg/dL [place] CBC auto differentialon 12-2 Absolute Baso # 0.1 10*3/uL 0 - 0.2 10*3/uL [place] Absolute Neut # 8.1 10*3/uL High 1.8 - 7 10*3/uL [place] Basophils/100 WBC (Bld) 0.6 % 0 - 2 % [place] Eosinophils (Bld) [#/Vol] 0.1 10*3/uL 0 - 0.5 10*3/uL [place] Eosinophils/100 WBC (Bld) 1.1 % 1 - 6 % [place] Erythrocyte distribution width (RBC) [Ratio] 14.9 % High 11.5 - 14.5 % [place] Granulocytes/100 WBC (Bld) 71.9 % 40 - 80 % [place] Hematocrit (Bld) [Volume fraction] 31.7 % Low 35 - 47 % [place] Hemoglobin (Bld) [Mass/Vol] 10.6 g/dL Low 11.7 - 16 g/dL [place] Interpretation and review of laboratory results Abnormal [place] Lymphocytes (Bld) [#/Vol] 1.9 10*3/uL 1 - 4.3 10*3/uL [place] Lymphocytes/100 WBC (Bld) 16.9 % Low 20 - 40 % [place] MCH (RBC) [Entitic mass] 33.2 pg 26 - 34 pg [place] MCHC (RBC) [Mass/Vol] 33.3 % 32 - 36 % [place] MCV (RBC) [Entitic vol] 99.7 fL High 79 - 98 fL [place] Monocytes (Bld) [#/Vol] 1.1 10*3/uL High 0 - 0.8 10*3/uL [place] Monocytes/100 WBC (Bld) 9.5 % 2 - 10 % [place] Platelet mean volume (Bld) [Entitic vol] 8.7 fL 7.4 - 10.4 fL [place] Platelets (Bld) [#/Vol] 232 10*3/uL 140 - 440 10*3/uL [place] RBC (Bld) [#/Vol] 3.18 10*6/uL Low 3.8 - 5.2 10*6/uL [place] WBC (Bld) [#/Vol] 11.2 10*3/uL High 3.6 - 10.7 10*3/uL [place] Test Performed by [facility], [address] [place] [address] [place], [place] CT Head or Brain w/o Contras ton 04-17-2020 CT Head or Brain w/o Contrast Patient Name: AIDEN FIELDS Computed Tomography ACCESSION EXAM DATE/TIME PROCEDURE ORDERING PROVIDER [id number] 04/17/2020 06:[address] Head or Brain w/o MD AV, ANIBAL Contrast CPT code 92044 Reason For Exam (CT Head or Brain [...] Transcribed Date and Time: 04/17/2020 9:04 Normal [facility] CT head without contraston 1 06-18-2019 Greg, [facility] Incoming Radiology Results From [facility] - 04/17/2020 9:11 AM EST Patient Name: AIDEN FIELDS Computed Tomography ACCESSION EXAM DATE/TIME PROCEDURE ORDERING PROVIDER [id number] 04/17/2020 06:[address] Head or Brain w/o MD LEY ANDREW Contrast CPT code 05360 Reason For Exam (CT Head or Brain [...] JOHN Transcribed Date and Time: 04/17/2020 9:04 [place] Patient Name: AIDEN FIELDS Computed Tomography ACCESSION EXAM DATE/TIME PROCEDURE ORDERING PROVIDER [id number] 04/17/2020 06:[address] Head or Brain w/o MD LEY ANDREW Contrast CPT code 49270 Reason For Exam (CT Head or Brain [...] JOHN Transcribed Date and Time: 04/17/2020 9:04 [facility] Abs Baso Cnt 0.1 10*3/uL Normal 0.0-0.2 [facility] [employer] Comment on above: Performed By: #### B MP3M, TSH5, MG3, HEMDF, ALB3, B12, PHOS3 ####[facility] [employer] [id number] [place] [address] Abs Neutrophile Cnt 8.1 10*3/uL High 1.8-7.0 [facility] Comment on above: Performed By: #### B MP3M, TSH5, MG3, HEMDF, ALB3, B12, PHOS3 ####[place] [address] [place], [place] Basophils/100 WBC (Bld) 0.6 % Normal 0.0-2.0 [facility] Comment on above: Performed By: #### B MP3M, TSH5, MG3, HEMDF, ALB3, B12, PHOS3 ####[place] [address] [place], [place] Eosinophils (Bld) [#/Vol] 0.1 10*3/uL Normal 0.0-0.5 [facility] Comment on above: Performed By: #### B MP3M, TSH5, MG3, HEMDF, ALB3, B12, PHOS3 ####[address] Eosinophils/100 WBC (Bld) 1.1 % Normal 1.0-6.0 [facility] Comment on above: Performed By: #### B MP3M, TSH5, MG3, HEMDF, ALB3, B12, PHOS3 ####[place] [address] [place] Erythrocyte distribution width (RBC) [Ratio] 14.9 % High 11.5-14.5 [facility] Comment on above: Performed By: #### B MP3M, TSH5, MG3, HEMDF, ALB3, B12, PHOS3 ####[place] [address] [place] Granulocytes/100 WBC (Bld) 71.9 % Normal 40.0-80.0 [facility] Comment on above: Performed By: #### B MP3M, TSH5, MG3, HEMDF, ALB3, B12, PHOS3 ####[place] [address] [place] Hematocrit (Bld) [Volume fraction] 31.7 % Low 35.0-47.0 [facility] Comment on above: Performed By: #### B MP3M, TSH5, MG3, HEMDF, ALB3, B12, PHOS3 ####[place] [address] [place] Hemoglobin (Bld) [Mass/Vol] 10.6 g/dL Low 11.7-16.0 [facility] Comment on above: Performed By: #### B MP3M, TSH5, MG3, HEMDF, ALB3, B12, PHOS3 ####[address] Lymphocytes (Bld) [#/Vol] 1.9 10*3/uL Normal 1.0-4.3 [facility] Comment on above: Performed By: #### B MP3M, TSH5, MG3, HEMDF, ALB3, B12, PHOS3 ####[address] Lymphocytes/100 WBC (Bld) 16.9 % Low 20.0-40.0 [facility] Comment on above: Performed By: #### B MP3M, TSH5, MG3, HEMDF, ALB3, B12, PHOS3 ####[address] MCH (RBC) [Entitic mass] 33.2 pg Normal 26.0-34.0 [facility] Comment on above: Performed By: #### B MP3M, TSH5, MG3, HEMDF, ALB3, B12, PHOS3 ####[address] MCHC (RBC) [Mass/Vol] 33.3 % Normal 32.0-36.0 [facility] Comment on above: Performed By: #### B MP3M, TSH5, MG3, HEMDF, ALB3, B12, PHOS3 ####[address] MCV (RBC) [Entitic vol] 99.7 fL High 79.0-98.0 [facility] Comment on above: Performed By: #### B MP3M, TSH5, MG3, HEMDF, ALB3, B12, PHOS3 ####[place] [address] [place], [place] Monocytes (Bld) [#/Vol] 1.1 10*3/uL High 0.0-0.8 [facility] Comment on above: Performed By: #### B MP3M, TSH5, MG3, HEMDF, ALB3, B12, PHOS3 ####[place] [address] [place] Monocytes/100 WBC (Bld) 9.5 % Normal 2.0-10.0 S [facility] Comment on above: Performed By: #### B MP3M, TSH5, MG3, HEMDF, ALB3, B12, PHOS3 ####[place] [address] [place] Platelet mean volume (Bld) [Entitic vol] 8.7 fL Normal 7.4-10.4 [facility] Comment on above: Performed By: #### B MP3M, TSH5, MG3, HEMDF, ALB3, B12, PHOS3 ####[place] [address] [place] Platelets (Bld) [#/Vol] 232 10*3/uL Normal 140-440 [facility] Comment on above: Performed By: #### B MP3M, TSH5, MG3, HEMDF, ALB3, B12, PHOS3 ####[place] [address] [place] RBC (Bld) [#/Vol] 3.18 10*6/uL Low 3.80-5.20 [facility] Comment on above: Performed By: #### B MP3M, TSH5, MG3, HEMDF, ALB3, B12, PHOS3 ####[place] [address] [place] WBC (Bld) [#/Vol] 11.2 10*3/uL High 3.6-10.7 [facility] Comment on above: Performed By: #### B MP3M, TSH5, MG3, HEMDF, ALB3, B12, PHOS3 ####[place] [address] [place] Lactic Acidon 04-17-2020 Lactate [Moles/Vol] 1.8 mmol/L Normal 0.7-2.0 [facility] Comment on above: Performed By: #### L ACT3 #### [place] [address] [place], [place] Lactic Acid, Plasmaon 2019 Lactate [Moles/Vol] 1.8 mmol/L 0.7 - 2 mmol/L [place] Test Performed by [facility], [facility] [place] [id number] [place] [address] Magnesiumon 04-17-2020 Magnesium [Mass/Vol] 1.4 mg/dL Low 1.6-2.3 [facility] Comment on above: Performed By: #### B MP3M, TSH5, MG3, HEMDF, ALB3, B12, PHOS3 ####[place] [address] [place] Interpretation and review of laboratory results Abnormal [place] Magnesium [Mass/Vol] 1.4 mg/dL Low 1.6 - 2 .3 mg/dL [place] Test Performed by [facility], [address] [place] [id number] [place] [address] Otheron 04-17-2020 Test Performed by [facility], [facility] [place], [place] [id number] [place] [address] Phosphoruson 04-17-2020 Phosphate [Mass/Vol] 3.4 mg/dL Normal 2.5-4.5 [facility] Comment on above: Performed By: #### B MP3M, TSH5, MG3, HEMDF, ALB3, B12, PHOS3 ####[facility] [place], [place] Phosphate [Mass/Vol] 3.4 mg/dL 2.5 - 4 .5 mg/dL [place] TSH without Reflexon 020 Interpretation and review of laboratory results Abnormal [place] TSH Qn 18.063 u[IU]/mL High 0.465 - 4.68 u[IU]/mL [place] Test Performed by [facility], [facility] [place] [address] [place] Thyroid Stim. Hormoneon 03-23 Thyroid Stim. Hormone 18.063 u[IU]/mL High 0.465-4.6 80 [facility] Comment on above: Performed By: #### B MP3M, TSH5, MG3, HEMDF, ALB3, B12, PHOS3 ####[place] [address] [place], [place] Vitamin B12on 04-17-2020 Cobalamin (Vitamin B12) [Mass/Vol] 345 pg/mL Normal 239-931 [facility] Comment on above: Performed By: #### B MP3M, TSH5, MG3, HEMDF, ALB3, B12, PHOS3 ####[place] [address] [place], [place] Cobalamin (Vitamin B12) [Mass/Vol] 345 pg/mL 239 - 931 pg/mL [place] Test Performed by [facility], [facility] [place] [address] [place] Basic Metabolic Panelon 03-23 Calcium [Mass/Vol] 7.9 mg/dL Low 8.4-10.4 [facility] Comment on above: Performed By: #### E TOH4, BMP3M, LACT3, HEMDF #### [place] [address] [place], [place] Glucose [Mass/Vol] 116 mg/dL High 70-100 [facility] Comment on above: Performed By: #### E TOH4, BMP3M, LACT3, HEMDF #### [address] [place], [place] Anion gap [Moles/Vol] 7 Normal [facility] Comment on above: Performed By: #### E TOH4, BMP3M, LACT3, HEMDF #### [place] [address] [place], [place] CO2 [Moles/Vol] 29 mmol/L Normal 22-30 [facility] Comment on above: Performed By: #### E TOH4, BMP3M, LACT3, HEMDF #### [facility] [address] [place], [place] Creatinine [Mass/Vol] 0.48 mg/dL Low 0.52-1.25 [facility] Comment on above: Performed By: #### E TOH4, BMP3M, LACT3, HEMDF #### [place] [address] [place], [place] GFR/1.73 sq M predicted among blacks MDRD (S/P/Bld) [Vol rate/Area] mL/min/{1.73_m2} Normal >60 [facility] Comment on above: Performed By: #### E TOH4, BMP3M, LACT3, HEMDF #### [place] [address] [place], [place] GFR/1.73 sq M predicted among non-blacks MDRD (S/P/Bld) [Vol rate/Area] mL/min/{1.73_m2} Normal >60 [facility] Comment on above: Result Comment: KDIG O [...] #### E TOH4, BMP3M, LACT3, HEMDF #### [place] [address] [place] Urea nitrogen [Mass/Vol] 13 mg/dL Normal 7-20 [facility] Comment on above: Performed By: #### E TOH4, BMP3M, LACT3, HEMDF #### [facility] [address] [place], [place] Chloride [Moles/Vol] 99 mmol/L Normal 98-107 [facility] Comment on above: Performed By: #### E TOH4, BMP3M, LACT3, HEMDF #### [facility] [address] [place], [place] Potassium [Moles/Vol] 3.6 mmol/L Normal 3.5-5.1 [facility] Comment on above: Performed By: #### E TOH4, BMP3M, LACT3, HEMDF #### [place] [address] [place] Sodium [Moles/Vol] 136 mmol/L Normal 135-145 [facility] Comment on above: Performed By: #### E TOH4, BMP3M, LACT3, HEMDF #### [place] [address] [place], [place] Basic Metabolic Panel w/ Ref jason to MGon 04-16-2020 Anion gap [Moles/Vol] 7 mmol/L [place] Calcium [Mass/Vol] 7.9 mg/dL Low 8.4 - 10. 4 mg/dL [place] Chloride [Moles/Vol] 99 mmol/L 98 - 10 7 mmol/L [place] CO2 [Moles/Vol] 29 mmol/L 22 - 30 mmol/L [place] Creatinine [Mass/Vol] 0.48 mg/dL Low 0.52 - 1.25 mg/dL [place] EGFR IF NonAfrican [place]ese >90.0 >60 mL/min [place] Comment on above: KDIGO guidelines pro [...] MDRD (S/P/Bld) [Vol rate/Area] mL/min/{1.73_m2} >60 mL/min [place] Glucose [Mass/Vol] 116 mg/dL High 70 - 100 mg/dL [place] Interpretation and review of laboratory results Abnormal [place] Potassium [Moles/Vol] 3.6 mmol/L 3.5 - 5.1 mmol/L [place] Sodium [Moles/Vol] 136 mmol/L 135 - 145 mmol/L [place] Urea nitrogen [Mass/Vol] 13 mg/dL 7 - 20 mg/dL [place] CBC auto differentialon -2 Absolute Baso # 0.1 10*3/uL 0 - 0.2 10*3/uL [place] Absolute Neut # 10.3 10*3/uL High 1.8 - 7 10*3/uL [place] Basophils/100 WBC (Bld) 0.4 % 0 - 2 % [place] Eosinophils (Bld) [#/Vol] 0.0 10*3/uL 0 - 0.5 10*3/uL [place] Eosinophils/100 WBC (Bld) 0.4 % Low 1 - 6 % [place] Erythrocyte distribution width (RBC) [Ratio] 14.6 % High 11.5 - 14.5 % [place] Granulocytes/100 WBC (Bld) 82.2 % High 40 - 80 % [place] Hematocrit (Bld) [Volume fraction] 36.4 % 35 - 47 % [place] Hemoglobin (Bld) [Mass/Vol] 12.1 g/dL 11.7 - 16 g/dL [place] Interpretation and review of laboratory results Abnormal [place] Lymphocytes (Bld) [#/Vol] 1.1 10*3/uL 1 - 4.3 10*3/uL [place] Lymphocytes/100 WBC (Bld) 9.1 % Low 20 - 40 % [place] MCH (RBC) [Entitic mass] 33.0 pg 26 - 34 pg [place] MCHC (RBC) [Mass/Vol] 33.2 % 32 - 36 % [place] MCV (RBC) [Entitic vol] 99.2 fL High 79 - 98 fL [place] Monocytes (Bld) [#/Vol] 1.0 10*3/uL High 0 - 0.8 10*3/uL [place] Monocytes/100 WBC (Bld) 7.9 % 2 - 10 % [place] Platelet mean volume (Bld) [Entitic vol] 8.1 fL 7.4 - 10.4 fL [place] Platelets (Bld) [#/Vol] 283 10*3/uL 140 - 440 10*3/uL [place] RBC (Bld) [#/Vol] 3.67 10*6/uL Low 3.8 - 5.2 10*6/uL [place] WBC (Bld) [#/Vol] 12.5 10*3/uL High 3.6 - 10.7 10*3/uL [place] Test Performed by [facility], [address] [place] [id number] [place] Drug screen multi urineon Amphetamines, urine Negative [place] Barbiturates, Ur Negative [place] Benzodiazepine Ur Qual Negative [place], [place] Cocaine Metabolites, Ur Negative [place] Methadone, Urine Negative [place] Opiates, Urine Positive [place] Oxycodone Screen, Ur Negative [place] PCP, Urine Negative [place] Comment on above: The expected value [...] confirmation under separate order. Test Performed by [facility] [place], [place] [id number] [place] [address] Drugs of Abuseon 04-16-2020 Opiates, Ur Positive Normal [facility] Comment on above: Performed By: #### D RGA4 #### [facility] [address] [place], [place] Phencyclidine (PCP), Ur Negative Normal [facility] Comment on above: Result Comment: The [...] order. Performed By: #### D RGA4 #### [facility] [address] [place] [address] Methadone, Ur Negative Normal [facility] Comment on above: Performed By: #### D RGA4 #### [facility] [address] [place] [address] Benzodiazepines, Ur Negative Normal [facility] Comment on above: Performed By: #### D [email or web address] #### [facility] [address] [place], [place] Cocaine, Ur Negative Normal [facility] Comment on above: Performed By: #### D [email or web address] #### [facility] [address], [place] Barbiturates, Ur Negative Normal [facility] Comment on above: Performed By: #### D [email or web address] #### [facility] [address], [place] Amphetamines, Ur Negative Normal [facility] Comment on above: Performed By: #### D [email or web address] #### [facility] [address], [place] Oxycodone/Oxymorphine,U r Negative Normal [facility] Comment on above: Performed By: #### D [email or web address] #### [facility] [place] [address] [place], [place] Ethanolon 04-16-2020 Ethanol Lvl <0.010 0 - 0.01 g/dL [place], [place] Comment on above: NOTE: This result is for medical treatment only. Analysis performed using non-forensic procedures. Ethanol Serum/Plasmaon 04-16 Ethanol-Serum/Plasma < 0.010 Normal 0.000-0.010 [facility] Comment on above: Result Comment: NOTE : This result is for medical treatment only. Analysis performed using non-forensic procedures. Performed By: #### E TOH4, BMP3M, LACT3, HEMDF #### [facility] [place] [address] [place], [place] Hemogram w/ Autodiffon 04-16 Abs Baso Cnt 0.1 10*3/uL Normal 0.0-0.2 [facility] Comment on above: Performed By: #### E TOH4, BMP3M, LACT3, HEMDF #### [facility] [place] [address] [place], [place] Abs Neutrophile Cnt 10.3 10*3/uL High 1.8-7.0 [facility] Comment on above: Performed By: #### E TOH4, BMP3M, LACT3, HEMDF #### [place] [address] [address] [place], [place] Basophils/100 WBC (Bld) 0.4 % Normal 0.0-2.0 [facility] [place] Comment on above: Performed By: #### E TOH4, BMP3M, LACT3, HEMDF #### [place] [address] [place], [place] Eosinophils (Bld) [#/Vol] 0.0 10*3/uL Normal 0.0-0.5 [facility] [place] Comment on above: Performed By: #### E TOH4, BMP3M, LACT3, HEMDF #### [address] Eosinophils/100 WBC (Bld) 0.4 % Low 1.0-6.0 [facility] [place] Comment on above: Performed By: #### E TOH4, BMP3M, LACT3, HEMDF #### [address] Erythrocyte distribution width (RBC) [Ratio] 14.6 % High 11.5-14.5 [facility] [place] Comment on above: Performed By: #### E TOH4, BMP3M, LACT3, HEMDF #### [address] Granulocytes/100 WBC (Bld) 82.2 % High 40.0-80.0 [facility] [place] Comment on above: Performed By: #### E TOH4, BMP3M, LACT3, HEMDF #### [address] Hematocrit (Bld) [Volume fraction] 36.4 % Normal 35.0-47.0 [facility] [place] Comment on above: Performed By: #### E TOH4, BMP3M, LACT3, HEMDF #### [address] Hemoglobin (Bld) [Mass/Vol] 12.1 g/dL Normal 11.7-16.0 [facility] [place] Comment on above: Performed By: #### E TOH4, BMP3M, LACT3, HEMDF #### [place] [address] [address] [place], [place] Lymphocytes (Bld) [#/Vol] 1.1 10*3/uL Normal 1.0-4.3 [facility] [place] Comment on above: Performed By: #### E TOH4, BMP3M, LACT3, HEMDF #### [place] [address] [address] [place], [place] Lymphocytes/100 WBC (Bld) 9.1 % Low 20.0-40.0 [facility] [place] Comment on above: Performed By: #### E TOH4, BMP3M, LACT3, HEMDF #### [address] [place], [place] MCH (RBC) [Entitic mass] 33.0 pg Normal 26.0-34.0 [facility] [place] Comment on above: Performed By: #### E TOH4, BMP3M, LACT3, HEMDF #### [address] [place], [place] MCHC (RBC) [Mass/Vol] 33.2 % Normal 32.0-36.0 [facility] Comment on above: Performed By: #### E TOH4, BMP3M, LACT3, HEMDF #### [address] [place], [place] MCV (RBC) [Entitic vol] 99.2 fL High 79.0-98.0 [facility] [place] Comment on above: Performed By: #### E TOH4, BMP3M, LACT3, HEMDF #### [place] [address] [address] [place], [place] Monocytes (Bld) [#/Vol] 1.0 10*3/uL High 0.0-0.8 [facility] [place] Comment on above: Performed By: #### E TOH4, BMP3M, LACT3, HEMDF #### [address] Monocytes/100 WBC (Bld) 7.9 % Normal 2.0-10.0 [facility] [place] Comment on above: Performed By: #### E TOH4, BMP3M, LACT3, HEMDF #### [place] [address] [address] [place], [place] Platelet mean volume (Bld) [Entitic vol] 8.1 fL Normal 7.4-10.4 [facility] [place] Comment on above: Performed By: #### E TOH4, BMP3M, LACT3, HEMDF #### [place] [address] [address] [place], [place] Platelets (Bld) [#/Vol] 283 10*3/uL Normal 140-440 [facility] [place] Comment on above: Performed By: #### E TOH4, BMP3M, LACT3, HEMDF #### [place] [address] [address] [place], [place] RBC (Bld) [#/Vol] 3.67 10*6/uL Low 3.80-5.20 [facility] [place] Comment on above: Performed By: #### E TOH4, BMP3M, LACT3, HEMDF #### [place] [address] [address] [place], [place] WBC (Bld) [#/Vol] 12.5 10*3/uL High 3.6-10.7 [facility] [place] Comment on above: Performed By: #### E TOH4, BMP3M, LACT3, HEMDF #### [place] [address] [address] [place], [place] Lactic Acidon 04-16-2020 Lactate [Moles/Vol] 2.7 mmol/L Critically high 0.7-2.0 [facility] [place] Comment on above: Performed By: #### L ACT3 #### [place] [address] [address] [place], [place] Lactate [Moles/Vol] 3.0 mmol/L Critically high 0.7-2.0 [facility] [place] Comment on above: Performed By: #### E TOH4, BMP3M, LACT3, HEMDF #### [place] [address] [address] [place], [place] Lactic Acid, Plasmaon 2019 Interpretation and review of laboratory results Abnormal [facility], [place] Lactate [Moles/Vol] 2.7 mmol/L Critically high 0.7 - 2 mmol/L [facility], [place] Test Performed by [facility], [address] [facility] [place] [address] [facility], [place] Interpretation and review of laboratory results Abnormal [facility], [place] Lactate [Moles/Vol] 3 mmol/L Critically high 0.7 - 2 mmol/L [facility], [place] Test Performed by [facility], [address] [place] [address] [facility], [place] Otheron 04-16-2020 Test Performed by [facility], [address] [place] [address] [facility], [place] .GFRon 09-01-2019 GFR Non- >60 Normal [facility] ([place]) Comment on above: Result Comment: GFR Population [...] #### C BC, BMP, GFR, DIFF, MORPH ####[address] [address] GFR >60 Normal [facility] ([place]) Comment on above: Result Comment: GFR Population [...] #### C BC, BMP, GFR, DIFF, MORPH ####[place] [address] .Manual Diffon 09-01-2019 Bands 1.0 % Normal 0.0-5.0 [facility] ([place]) Comment on above: Performed By: #### C BC, BMP, GFR, DIFF, MORPH ####[place] [address] Basophil %, Manual 1.0 % Normal 0.0-2.5 [facility] ([place]) Comment on above: Performed By: #### C BC, BMP, GFR, DIFF, MORPH ####[place] [address] Basophil, Abs Manual 0.15 10 3/mcL Normal 0.00-0.27 [facility] ([place]) Comment on above: Performed By: #### C BC, BMP, GFR, DIFF, MORPH ####[place] [address] Cells Counted 100 Normal [facility] ([place]) Comment on above: Performed By: #### C BC, BMP, GFR, DIFF, MORPH ####[place] [address] Eosinophil %, Manual 2.0 % Normal 0.0-6.0 [facility] ([place]) Comment on above: Performed By: #### C BC, BMP, GFR, DIFF, MORPH ####[place] [address] Eosinophil, Abs Manual 0.30 10 3/mcL Normal 0.00-0.65 [facility] ([place]) Comment on above: Performed By: #### C BC, BMP, GFR, DIFF, MORPH ####[place] [address] Lymphocyte %, Manual 7.0 % Low 20.0-40.0 [facility] ([place]) Comment on above: Performed By: #### C BC, BMP, GFR, DIFF, MORPH ####[place] [address] Lymphocyte, Abs Manual 1.04 10 3/mcL Normal 0.90-4.32 [facility] ([place]) Comment on above: Performed By: #### C BC, BMP, GFR, DIFF, MORPH ####[place] [address] Monocyte %, Manual 2.0 % Normal 2.0-13.0 [facility] ([place]) Comment on above: Performed By: #### C BC, BMP, GFR, DIFF, MORPH ####[place] [address] Monocyte, Abs Manual 0.30 10 3/mcL Normal 0.09-1.40 [facility] ([place]) Comment on above: Performed By: #### C BC, BMP, GFR, DIFF, MORPH ####[place] [address] Neutrophil %, Manual 87.0 % High 50.0-75.0 [facility] ([place]) Comment on above: Performed By: #### C BC, BMP, GFR, DIFF, MORPH ####[place] [address] Neutrophil, Abs Manual 13.11 10 3/mcL High 2.25-8.10 [facility] ([place]) Comment on above: Performed By: #### C BC, BMP, GFR, DIFF, MORPH ####[place] [address] .Morphon 09-01-2019 Platelets (Bld) [#/Vol] Slt Increased Normal [facility] ([place]) Comment on above: Performed By: #### C BC, BMP, GFR, DIFF, MORPH ####[place] [address] RBC morphology finding Nom (Bld) Normal Normal [facility] ([place]) Comment on above: Performed By: #### C BC, BMP, GFR, DIFF, MORPH ####[place] [address] BMPon 09-01-2019 Calcium [Mass/Vol] 8.6 mg/dL Normal 8.4-10.1 [facility] ([place]) Comment on above: Performed By: #### C BC, BMP, GFR, DIFF, MORPH ####[address] [address] CO2 [Moles/Vol] 24 mmol/L Normal 22-32 [facility] ([place]) Comment on above: Performed By: #### C BC, BMP, GFR, DIFF, MORPH ####[place] [address] Creatinine [Mass/Vol] 0.46 mg/dL Low 0.50-1.20 [facility] ([place]) Comment on above: Performed By: #### C BC, BMP, GFR, DIFF, MORPH ####[place] [address] Electrolyte Balance 10.0 mEq/L Normal 4.0-15.0 [facility] ([place]) Comment on above: Performed By: #### C BC, BMP, GFR, DIFF, MORPH ####[place] [address] Glucose [Mass/Vol] 106 mg/dL Normal 82-115 [facility] ([place]) Comment on above: Performed By: #### C BC, BMP, GFR, DIFF, MORPH ####[place] [address] Potassium [Moles/Vol] 3.9 mmol/L Normal 3.5-5.0 [facility] ([place]) Comment on above: Performed By: #### C BC, BMP, GFR, DIFF, MORPH ####[place] [address] Urea nitrogen [Mass/Vol] 9.0 mg/dL Normal 8.0-22.0 [facility] ([place]) Comment on above: Performed By: #### C BC, BMP, GFR, DIFF, MORPH ####[place] [address] Urea nitrogen/Creatinine [Mass ratio] 19.6 ratio Normal 10.0-22.0 [facility] ([place]) Comment on above: Performed By: #### C BC, BMP, GFR, DIFF, MORPH ####[place] [address] Chloride [Moles/Vol] 101 mmol/L Normal 98-110 [facility] ([place]) Comment on above: Performed By: #### C BC, BMP, GFR, DIFF, MORPH ####[place] [address] Sodium [Moles/Vol] 135 mmol/L Low 136-145 [facility] ([place]) Comment on above: Performed By: #### C BC, BMP, GFR, DIFF, MORPH ####[place] [address] CBCon 09-01-2019 Erythrocyte distribution width (RBC) [Ratio] 14.7 % Normal 11.5-15.5 [facility] ([place]) Comment on above: Performed By: #### C BC, BMP, GFR, DIFF, MORPH ####[place] [address] Hematocrit (Bld) [Volume fraction] 29.6 % Low 34.0-46.0 [facility] ([place]) Comment on above: Performed By: #### C BC, BMP, GFR, DIFF, MORPH ####[place] [address] Hemoglobin (Bld) [Mass/Vol] 9.9 G/dL Low 12.0-16.0 [facility] ([place]) Comment on above: Performed By: #### C BC, BMP, GFR, DIFF, MORPH ####[place] [address] MCH (RBC) [Entitic mass] 32.8 pg Normal 27.0-33.0 [facility] ([place]) Comment on above: Performed By: #### C BC, BMP, GFR, DIFF, MORPH ####[address] [address] MCHC (RBC) [Mass/Vol] 33.5 G/dL Normal 32.0-36.0 [facility] ([place]) Comment on above: Performed By: #### C BC, BMP, GFR, DIFF, MORPH ####[place] [address] MCV (RBC) [Entitic vol] 97.9 fL Normal 80.0-99.0 [facility] ([place]) Comment on above: Performed By: #### C BC, BMP, GFR, DIFF, MORPH ####[place] [address] Platelet mean volume (Bld) [Entitic vol] 7.0 fL Normal 6.6-10.5 [facility] ([place]) Comment on above: Performed By: #### C BC, BMP, GFR, DIFF, MORPH ####[place] [address] Platelets (Bld) [#/Vol] 481 10 3/mcL High 150-450 [facility] ([place]) Comment on above: Performed By: #### C BC, BMP, GFR, DIFF, MORPH ####[place] [address] RBC (Bld) [#/Vol] 3.03 10 6/mcL Low 4.10-5.30 [facility] ([place]) Comment on above: Performed By: #### C BC, BMP, GFR, DIFF, MORPH ####[place] [address] WBC (Bld) [#/Vol] 14.90 10 3/mcL High 4.50-10.80 [facility] ([place]) Comment on above: Performed By: #### C BC, BMP, GFR, DIFF, MORPH ####[address] [address] .Auto Diffon 08-31-2019 Ammonia (P) [Mass/Vol] 1.40 10 3/mcL Normal 0.09-1.40 [facility] ([place]) Comment on above: Performed By: #### C BC, ADIFF, ANEU, BMP, GFR ####[place] [address] Basophils (Bld) [#/Vol] 0.10 10 3/mcL Normal 0.00-0.27 [facility] ([place]) Comment on above: Performed By: #### C BC, ADIFF, ANEU, BMP, GFR ####[address] [address] Basophils/100 WBC (Bld) 0.5 % Normal 0.0-2.5 [facility] ([place]) Comment on above: Performed By: #### C BC, ADIFF, ANEU, BMP, GFR ####[address] [address] Eosinophils (Bld) [#/Vol] 0.50 10 3/mcL Normal 0.00-0.65 [facility] ([place]) Comment on above: Performed By: #### C BC, ADIFF, ANEU, BMP, GFR ####[address] [address] Eosinophils/100 WBC (Bld) 3.3 % Normal 0.0-6.0 [facility] ([place]) Comment on above: Performed By: #### C BC, ADIFF, ANEU, BMP, GFR ####[address] [address] Lymphocytes (Bld) [#/Vol] 1.30 10 3/mcL Normal 0.90-4.32 [facility] ([place]) Comment on above: Performed By: #### C BC, ADIFF, ANEU, BMP, GFR ####[address] [address] Lymphocytes/100 WBC (Bld) 8.1 % Low 20.0-40.0 [facility] ([place]) Comment on above: Performed By: #### C BC, ADIFF, ANEU, BMP, GFR ####[address] [address] Monocytes/100 WBC (Bld) 9.0 % Normal 2.0-13.0 [facility] ([place]) Comment on above: Performed By: #### C BC, ADIFF, ANEU, BMP, GFR ####[address] [address] Neutrophils/100 WBC (Bld) 79.1 % High 50.0-75.0 [facility] ([place]) Comment on above: Performed By: #### C BC, ADIFF, ANEU, BMP, GFR ####[address] [address] .GFRon 08-31-2019 GFR Non- >60 Normal [facility] ([place]) Comment on above: Result Comment: GFR Population [...] #### C BC, ADIFF, ANEU, BMP, GFR ####[place] [address] GFR >60 Normal [facility] ([place]) Comment on above: Result Comment: GFR Population [...] #### C BC, ADIFF, ANEU, BMP, GFR ####[address] [address] .NEUABSon 08-31-2019 Neutrophils (Bld) [#/Vol] 12.50 10 3/mcL High 2.25-8.10 [facility] ([place]) Comment on above: Performed By: #### C BC, ADIFF, ANEU, BMP, GFR ####[place] [id number] BMPon 08-31-2019 Creatinine [Mass/Vol] 0.51 mg/dL Normal 0.50-1.20 [facility] ([place]) Comment on above: Performed By: #### C BC, ADIFF, ANEU, BMP, GFR ####[place] [address] Urea nitrogen/Creatinine [Mass ratio] 19.6 ratio Normal 10.0-22.0 [facility] ([place]) Comment on above: Performed By: #### C BC, ADIFF, ANEU, BMP, GFR ####[place] [address] Calcium [Mass/Vol] 8.6 mg/dL Normal 8.4-10.1 [facility] ([place]) Comment on above: Performed By: #### C BC, ADIFF, ANEU, BMP, GFR ####[place] [address] Chloride [Moles/Vol] 101 mmol/L Normal 98-110 [facility] ([place]) Comment on above: Performed By: #### C BC, ADIFF, ANEU, BMP, GFR ####[place] [address] CO2 [Moles/Vol] 25 mmol/L Normal 22-32 [facility] ([place]) Comment on above: Performed By: #### C BC, ADIFF, ANEU, BMP, GFR ####[place] [address] Electrolyte Balance 9.0 mEq/L Normal 4.0-15.0 [facility] ([place]) Comment on above: Performed By: #### C BC, ADIFF, ANEU, BMP, GFR ####[place] [address] Glucose [Mass/Vol] 112 mg/dL Normal 82-115 [facility] ([place]) Comment on above: Performed By: #### C BC, ADIFF, ANEU, BMP, GFR ####[place] [address] Potassium [Moles/Vol] 4.0 mmol/L Normal 3.5-5.0 [facility] ([place]) Comment on above: Performed By: #### C BC, ADIFF, ANEU, BMP, GFR ####[place] [address] Sodium [Moles/Vol] 135 mmol/L Low 136-145 [facility] ([place]) Comment on above: Performed By: #### C BC, ADIFF, ANEU, BMP, GFR ####[place] [address] Urea nitrogen [Mass/Vol] 10.0 mg/dL Normal 8.0-22.0 [facility] ([place]) Comment on above: Performed By: #### C BC, ADIFF, ANEU, BMP, GFR ####[place] [address] CBCon 08-31-2019 Erythrocyte distribution width (RBC) [Ratio] 14.7 % Normal 11.5-15.5 [facility] ([place]) Comment on above: Performed By: #### C BC, ADIFF, ANEU, BMP, GFR ####[place] [address] Hematocrit (Bld) [Volume fraction] 29.1 % Low 34.0-46.0 [facility] ([place]) Comment on above: Performed By: #### C BC, ADIFF, ANEU, BMP, GFR ####[place] [address] Hemoglobin (Bld) [Mass/Vol] 9.5 G/dL Low 12.0-16.0 [facility] ([place]) Comment on above: Performed By: #### C BC, ADIFF, ANEU, BMP, GFR ####[place] [address] MCH (RBC) [Entitic mass] 32.5 pg Normal 27.0-33.0 [facility] ([place]) Comment on above: Performed By: #### C BC, ADIFF, ANEU, BMP, GFR ####[address] [address] MCHC (RBC) [Mass/Vol] 32.7 G/dL Normal 32.0-36.0 [facility] ([place]) Comment on above: Performed By: #### C BC, ADIFF, ANEU, BMP, GFR ####[address] [address] MCV (RBC) [Entitic vol] 99.3 fL High 80.0-99.0 [facility] ([place]) Comment on above: Performed By: #### C BC, ADIFF, ANEU, BMP, GFR ####[address] [address] Platelet mean volume (Bld) [Entitic vol] 7.3 fL Normal 6.6-10.5 [facility] ([place]) Comment on above: Performed By: #### C BC, ADIFF, ANEU, BMP, GFR ####[place] [id number] Platelets (Bld) [#/Vol] 485 10 3/mcL High 150-450 [facility] ([place]) Comment on above: Performed By: #### C BC, ADIFF, ANEU, BMP, GFR ####[place] [id number] RBC (Bld) [#/Vol] 2.93 10 6/mcL Low 4.10-5.30 [facility] ([place]) Comment on above: Performed By: #### C BC, ADIFF, ANEU, BMP, GFR ####[place] [id number] WBC (Bld) [#/Vol] 15.80 10 3/mcL High 4.50-10.80 [facility] ([place]) Comment on above: Performed By: #### C BC, ADIFF, ANEU, BMP, GFR ####[address] [address] .GFRon 08-30-2019 GFR >60 Normal [facility] ([place]) Comment on above: Result Comment: GFR Population [...] #### C BC, BMP, GFR, DIFF, MORPH ####[address] [address] GFR Non- >60 Normal [facility] ([place]) Comment on above: Result Comment: GFR Population [...] #### C BC, BMP, GFR, DIFF, MORPH ####[place] [address] .Manual Diffon 08-30-2019 Bands 1.0 % Normal 0.0-5.0 [facility] ([place]) Comment on above: Performed By: #### C BC, BMP, GFR, DIFF, MORPH ####[address] [address] Basophil %, Manual 0.0 % Normal 0.0-2.5 [facility] ([place]) Comment on above: Performed By: #### C BC, BMP, GFR, DIFF, MORPH ####[place] [address] Basophil, Abs Manual 0.00 10 3/mcL Normal 0.00-0.27 [facility] ([place]) Comment on above: Performed By: #### C BC, BMP, GFR, DIFF, MORPH ####[address] [address] Cells Counted 100 Normal [facility] ([place]) Comment on above: Performed By: #### C BC, BMP, GFR, DIFF, MORPH ####[address] [address] Eosinophil %, Manual 4.0 % Normal 0.0-6.0 [facility] ([place]) Comment on above: Performed By: #### C BC, BMP, GFR, DIFF, MORPH ####[address] [address] Eosinophil, Abs Manual 0.64 10 3/mcL Normal 0.00-0.65 [facility] ([place]) Comment on above: Performed By: #### C BC, BMP, GFR, DIFF, MORPH ####[address] [address] Lymphocyte %, Manual 15.0 % Low 20.0-40.0 [facility] ([place]) Comment on above: Performed By: #### C BC, BMP, GFR, DIFF, MORPH ####[address] [address] Lymphocyte, Abs Manual 2.38 10 3/mcL Normal 0.90-4.32 [facility] ([place]) Comment on above: Performed By: #### C BC, BMP, GFR, DIFF, MORPH ####[address] [address] Metamyelocytes/100 WBC (Bld) 1.0 % Normal [facility] ([place]) Comment on above: Performed By: #### C BC, BMP, GFR, DIFF, MORPH ####[address] [address] Monocyte %, Manual 9.0 % Normal 2.0-13.0 [facility] ([place]) Comment on above: Performed By: #### C BC, BMP, GFR, DIFF, MORPH ####[address] [address] Monocyte, Abs Manual 1.43 10 3/mcL High 0.09-1.40 [facility] ([place]) Comment on above: Performed By: #### C BC, BMP, GFR, DIFF, MORPH ####[place] [address] Neutrophil %, Manual 70.0 % Normal 50.0-75.0 [facility] ([place]) Comment on above: Performed By: #### C BC, BMP, GFR, DIFF, MORPH ####[place] [address] Neutrophil, Abs Manual 11.29 10 3/mcL High 2.25-8.10 [facility] ([place]) Comment on above: Performed By: #### C BC, BMP, GFR, DIFF, MORPH ####[place] [address] .Morphon 08-30-2019 Platelets (Bld) [#/Vol] Slt Increased Normal [facility] ([place]) Comment on above: Performed By: #### C BC, BMP, GFR, DIFF, MORPH ####[place] [address] Polychrom Slight Normal [facility] ([place]) Comment on above: Performed By: #### C BC, BMP, GFR, DIFF, MORPH ####[place] [address] BMPon 08-30-2019 Creatinine [Mass/Vol] 0.47 mg/dL Low 0.50-1.20 [facility] ([place]) Comment on above: Performed By: #### C BC, BMP, GFR, DIFF, MORPH ####[place] [address] Urea nitrogen/Creatinine [Mass ratio] 19.1 ratio Normal 10.0-22.0 [facility] ([place]) Comment on above: Performed By: #### C BC, BMP, GFR, DIFF, MORPH ####[place] [address] Calcium [Mass/Vol] 8.4 mg/dL Normal 8.4-10.1 [facility] ([place]) Comment on above: Performed By: #### C BC, BMP, GFR, DIFF, MORPH ####[address] [address] Chloride [Moles/Vol] 100 mmol/L Normal 98-110 [facility] ([place]) Comment on above: Performed By: #### C BC, BMP, GFR, DIFF, MORPH ####[address] [address] CO2 [Moles/Vol] 26 mmol/L Normal 22-32 [facility] ([place]) Comment on above: Performed By: #### C BC, BMP, GFR, DIFF, MORPH ####[address] [address] Electrolyte Balance 8.0 mEq/L Normal 4.0-15.0 [facility] ([place]) Comment on above: Performed By: #### C BC, BMP, GFR, DIFF, MORPH ####[address] [address] Glucose [Mass/Vol] 103 mg/dL Normal 82-115 [facility] ([place]) Comment on above: Performed By: #### C BC, BMP, GFR, DIFF, MORPH ####[place] [address] Potassium [Moles/Vol] 3.3 mmol/L Low 3.5-5.0 [facility] ([place]) Comment on above: Performed By: #### C BC, BMP, GFR, DIFF, MORPH ####[place] [address] Sodium [Moles/Vol] 134 mmol/L Low 136-145 [facility] ([place]) Comment on above: Performed By: #### C BC, BMP, GFR, DIFF, MORPH ####[address] [address] Urea nitrogen [Mass/Vol] 9.0 mg/dL Normal 8.0-22.0 [facility] ([place]) Comment on above: Performed By: #### C BC, BMP, GFR, DIFF, MORPH ####[place] [address] CBCon 08-30-2019 Erythrocyte distribution width (RBC) [Ratio] 14.7 % Normal 11.5-15.5 [facility] ([place]) Comment on above: Performed By: #### C BC, BMP, GFR, DIFF, MORPH ####[address] [address] Hematocrit (Bld) [Volume fraction] 29.8 % Low 34.0-46.0 [facility] ([place]) Comment on above: Performed By: #### C BC, BMP, GFR, DIFF, MORPH ####[place] [address] Hemoglobin (Bld) [Mass/Vol] 9.8 G/dL Low 12.0-16.0 [facility] ([place]) Comment on above: Performed By: #### C BC, BMP, GFR, DIFF, MORPH ####[address] [address] MCH (RBC) [Entitic mass] 32.7 pg Normal 27.0-33.0 [facility] ([place]) Comment on above: Performed By: #### C BC, BMP, GFR, DIFF, MORPH ####[address] [address] MCHC (RBC) [Mass/Vol] 33.1 G/dL Normal 32.0-36.0 [facility] ([place]) Comment on above: Performed By: #### C BC, BMP, GFR, DIFF, MORPH ####[place] [address] MCV (RBC) [Entitic vol] 98.7 fL Normal 80.0-99.0 [facility] ([place]) Comment on above: Performed By: #### C BC, BMP, GFR, DIFF, MORPH ####[place] [address] Platelet mean volume (Bld) [Entitic vol] 7.1 fL Normal 6.6-10.5 [facility] ([place]) Comment on above: Performed By: #### C BC, BMP, GFR, DIFF, MORPH ####[address] [address] Platelets (Bld) [#/Vol] 504 10 3/mcL High 150-450 [facility] ([place]) Comment on above: Performed By: #### C BC, BMP, GFR, DIFF, MORPH ####[address] [address] RBC (Bld) [#/Vol] 3.02 10 6/mcL Low 4.10-5.30 [facility] ([place]) Comment on above: Performed By: #### C BC, BMP, GFR, DIFF, MORPH ####[address] [address] WBC (Bld) [#/Vol] 15.90 10 3/mcL High 4.50-10.80 [facility] ([place]) Comment on above: Performed By: #### C BC, BMP, GFR, DIFF, MORPH ####[address] [address] .GFRon 08-29-2019 GFR Non- >60 Normal [facility] [facility] ([place]) Comment on above: Result Comment: GFR Population [...] #### C BC, BMP, GFR, DIFF, MORPH ####[address] [address] GFR >60 Normal [facility] ([place]) Comment on above: Result Comment: GFR Population [...] #### C BC, BMP, GFR, DIFF, MORPH ####[place] [address] .Manual Diffon 08-29-2019 Basophil %, Manual 1.0 % Normal 0.0-2.5 [facility] ([place]) Comment on above: Performed By: #### C BC, BMP, GFR, DIFF, MORPH ####[place] [address] Basophil, Abs Manual 0.18 10 3/mcL Normal 0.00-0.27 [facility] ([place]) Comment on above: Performed By: #### C BC, BMP, GFR, DIFF, MORPH ####[place] [address] Cells Counted 100 Normal [facility] ([place]) Comment on above: Performed By: #### C BC, BMP, GFR, DIFF, MORPH ####[place] [address] Eosinophil %, Manual 0.0 % Normal 0.0-6.0 [facility] ([place]) Comment on above: Performed By: #### C BC, BMP, GFR, DIFF, MORPH ####[place] [address] Eosinophil, Abs Manual 0.00 10 3/mcL Normal 0.00-0.65 [facility] ([place]) Comment on above: Performed By: #### C BC, BMP, GFR, DIFF, MORPH ####[place] [address] Lymphocyte %, Manual 7.0 % Low 20.0-40.0 [facility] ([place]) Comment on above: Performed By: #### C BC, BMP, GFR, DIFF, MORPH ####[address] [address] Lymphocyte, Abs Manual 1.29 10 3/mcL Normal 0.90-4.32 [facility] ([place]) Comment on above: Performed By: #### C BC, BMP, GFR, DIFF, MORPH ####[address] [address] Monocyte %, Manual 5.0 % Normal 2.0-13.0 [facility] ([place]) Comment on above: Performed By: #### C BC, BMP, GFR, DIFF, MORPH ####[address] [address] Monocyte, Abs Manual 0.92 10 3/mcL Normal 0.09-1.40 [facility] ([place]) Comment on above: Performed By: #### C BC, BMP, GFR, DIFF, MORPH ####[place] [address] Myelocyte 2.0 % Normal [facility] ([place]) Comment on above: Performed By: #### C BC, BMP, GFR, DIFF, MORPH ####[address] [address] Neutrophil %, Manual 85.0 % High 50.0-75.0 [facility] ([place]) Comment on above: Performed By: #### C BC, BMP, GFR, DIFF, MORPH ####[address] [address] Neutrophil, Abs Manual 15.64 10 3/mcL High 2.25-8.10 [facility] ([place]) Comment on above: Performed By: #### C BC, BMP, GFR, DIFF, MORPH ####[place] [address] .Morphon 08-29-2019 Platelets (Bld) [#/Vol] Normal Normal [facility] ([place]) Comment on above: Performed By: #### C BC, BMP, GFR, DIFF, MORPH ####[address] [address] Polychrom Slight Normal [facility] ([place]) Comment on above: Performed By: #### C BC, BMP, GFR, DIFF, MORPH ####[address] [address] BMPon 08-29-2019 Calcium [Mass/Vol] 7.8 mg/dL Low 8.4-10.1 [facility] ([place]) Comment on above: Performed By: #### C BC, BMP, GFR, DIFF, MORPH ####[place] [address] Chloride [Moles/Vol] 96 mmol/L Low 98-110 [facility] ([place]) Comment on above: Performed By: #### C BC, BMP, GFR, DIFF, MORPH ####[place] [address] CO2 [Moles/Vol] 26 mmol/L Normal 22-32 [facility] ([place]) Comment on above: Performed By: #### C BC, BMP, GFR, DIFF, MORPH ####[place] [address] Creatinine [Mass/Vol] 0.44 mg/dL Low 0.50-1.20 [facility] ([place]) Comment on above: Performed By: #### C BC, BMP, GFR, DIFF, MORPH ####[place] [address] Electrolyte Balance 9.0 mEq/L Normal 4.0-15.0 [facility] ([place]) Comment on above: Performed By: #### C BC, BMP, GFR, DIFF, MORPH ####[place] [address] Glucose [Mass/Vol] 146 mg/dL High 82-115 [facility] ([place]) Comment on above: Performed By: #### C BC, BMP, GFR, DIFF, MORPH ####[place] [address] Potassium [Moles/Vol] 3.4 mmol/L Low 3.5-5.0 [facility] ([place]) Comment on above: Performed By: #### C BC, BMP, GFR, DIFF, MORPH ####[place] [address] Sodium [Moles/Vol] 131 mmol/L Low 136-145 [facility] ([place]) Comment on above: Performed By: #### C BC, BMP, GFR, DIFF, MORPH ####[place] [address] Urea nitrogen [Mass/Vol] 9.0 mg/dL Normal 8.0-22.0 [facility] ([place]) Comment on above: Performed By: #### C BC, BMP, GFR, DIFF, MORPH ####[place] [address] Urea nitrogen/Creatinine [Mass ratio] 20.5 ratio Normal 10.0-22.0 [facility] ([place]) Comment on above: Performed By: #### C BC, BMP, GFR, DIFF, MORPH ####[place] [address] CBCon 08-29-2019 Erythrocyte distribution width (RBC) [Ratio] 14.4 % Normal 11.5-15.5 [facility] ([place]) Comment on above: Performed By: #### C BC, BMP, GFR, DIFF, MORPH ####[place] [address] Hematocrit (Bld) [Volume fraction] 29.2 % Low 34.0-46.0 [facility] ([place]) Comment on above: Performed By: #### C BC, BMP, GFR, DIFF, MORPH ####[place] [address] Hemoglobin (Bld) [Mass/Vol] 9.7 G/dL Low 12.0-16.0 [facility] ([place]) Comment on above: Performed By: #### C BC, BMP, GFR, DIFF, MORPH ####[place] [address] MCH (RBC) [Entitic mass] 32.5 pg Normal 27.0-33.0 [facility] ([place]) Comment on above: Performed By: #### C BC, BMP, GFR, DIFF, MORPH ####[place] [address] MCHC (RBC) [Mass/Vol] 33.2 G/dL Normal 32.0-36.0 [facility] ([place]) Comment on above: Performed By: #### C BC, BMP, GFR, DIFF, MORPH ####[address] [address] MCV (RBC) [Entitic vol] 97.8 fL Normal 80.0-99.0 [facility] ([place]) Comment on above: Performed By: #### C BC, BMP, GFR, DIFF, MORPH ####[place] [address] Platelet mean volume (Bld) [Entitic vol] 6.7 fL Normal 6.6-10.5 [facility] ([place]) Comment on above: Performed By: #### C BC, BMP, GFR, DIFF, MORPH ####[place] [address] Platelets (Bld) [#/Vol] 434 10 3/mcL Normal 150-450 [facility] ([place]) Comment on above: Performed By: #### C BC, BMP, GFR, DIFF, MORPH ####[place] [address] RBC (Bld) [#/Vol] 2.98 10 6/mcL Low 4.10-5.30 [facility] ([place]) Comment on above: Performed By: #### C BC, BMP, GFR, DIFF, MORPH ####[place] [address] WBC (Bld) [#/Vol] 18.40 10 3/mcL High 4.50-10.80 [facility] ([place]) Comment on above: Performed By: #### C BC, BMP, GFR, DIFF, MORPH ####[address] [address] .Auto Diffon 08-28-2019 Ammonia (P) [Mass/Vol] 2.30 10 3/mcL High 0.09-1.40 [facility] ([place]) Comment on above: Performed By: #### M G, CMP, GFR, CBC, ADIFF, ANEU ####[place] [id number] Basophils (Bld) [#/Vol] 0.10 10 3/mcL Normal 0.00-0.27 [facility] ([place]) Comment on above: Performed By: #### M G, CMP, GFR, CBC, ADIFF, ANEU ####[address] [address] Basophils/100 WBC (Bld) 0.4 % Normal 0.0-2.5 [facility] ([place]) Comment on above: Performed By: #### M G, CMP, GFR, CBC, ADIFF, ANEU ####[address] [address] Eosinophils (Bld) [#/Vol] 0.50 10 3/mcL Normal 0.00-0.65 [facility] ([place]) Comment on above: Performed By: #### M G, CMP, GFR, CBC, ADIFF, ANEU ####[address] [address] Eosinophils/100 WBC (Bld) 2.8 % Normal 0.0-6.0 [facility] ([place]) Comment on above: Performed By: #### M G, CMP, GFR, CBC, ADIFF, ANEU ####[address] [address] Lymphocytes (Bld) [#/Vol] 1.50 10 3/mcL Normal 0.90-4.32 [facility] ([place]) Comment on above: Performed By: #### M G, CMP, GFR, CBC, ADIFF, ANEU ####[address] [address] Lymphocytes/100 WBC (Bld) 8.2 % Low 20.0-40.0 [facility] ([place]) Comment on above: Performed By: #### M G, CMP, GFR, CBC, ADIFF, ANEU ####[address] [address] Monocytes/100 WBC (Bld) 13.1 % High 2.0-13.0 [facility] ([place]) Comment on above: Performed By: #### M G, CMP, GFR, CBC, ADIFF, ANEU ####[address] [address] Neutrophils/100 WBC (Bld) 75.5 % High 50.0-75.0 [facility] ([place]) Comment on above: Performed By: #### M G, CMP, GFR, CBC, ADIFF, ANEU ####[address] [address] .GFRon 08-28-2019 GFR >60 Normal [facility] ([place]) Comment on above: Result Comment: GFR Population [...] meters Performed By: #### G FR, BMP ####[place] [address] GFR Non- >60 Normal [facility] ([place]) Comment on above: Result Comment: GFR Population [...] meters Performed By: #### G FR, BMP ####[address] [address] .NEUABSon 08-28-2019 Neutrophils (Bld) [#/Vol] 13.50 10 3/mcL High 2.25-8.10 [facility] ([place]) Comment on above: Performed By: #### M G, CMP, GFR, CBC, ADIFF, ANEU ####[place] [address] BMPon 08-28-2019 Potassium [Moles/Vol] 3.5 mmol/L Normal 3.5-5.0 [facility] ([place]) Comment on above: Performed By: #### Carolyn FR, BMP ####[place] [address] Calcium [Mass/Vol] 7.5 mg/dL Low 8.4-10.1 [facility] ([place]) Comment on above: Performed By: #### Carolyn RANGEL, BMP ####[place] [address] Chloride [Moles/Vol] 100 mmol/L Normal 98-110 [facility] ([place]) Comment on above: Performed By: #### Carolyn RANGEL, BMP ####[place] [address] CO2 [Moles/Vol] 25 mmol/L Normal 22-32 [facility] ([place]) Comment on above: Performed By: #### Carolyn RANGEL, BMP ####[place] [address] Creatinine [Mass/Vol] 0.45 mg/dL Low 0.50-1.20 [facility] ([place]) Comment on above: Performed By: #### Carolyn RANGEL, BMP ####[place] [address] Electrolyte Balance 8.0 mEq/L Normal 4.0-15.0 [facility] ([place]) Comment on above: Performed By: #### Carolyn FR, BMP ####[place] [address] Glucose [Mass/Vol] 103 mg/dL Normal 82-115 [facility] ([place]) Comment on above: Performed By: #### Carolyn FR, BMP ####[place] [address] Sodium [Moles/Vol] 133 mmol/L Low 136-145 [facility] ([place]) Comment on above: Performed By: #### G FR, BMP ####[address] [address] Urea nitrogen [Mass/Vol] 10.0 mg/dL Normal 8.0-22.0 [facility] ([place] Comment on above: Performed By: #### G FR, BMP ####[place] [address] Urea nitrogen/Creatinine [Mass ratio] 22.2 ratio High 10.0-22.0 [facility] ([place]) Comment on above: Performed By: #### G FR, BMP ####[place] [address] CBCon 08-28-2019 Erythrocyte distribution width (RBC) [Ratio] 14.2 % Normal 11.5-15.5 [facility] ([place]) Comment on above: Performed By: #### M G, CMP, GFR, CBC, ADIFF, ANEU ####[place] [address] Hematocrit (Bld) [Volume fraction] 27.4 % Low 34.0-46.0 [facility] ([place]) Comment on above: Performed By: #### M G, CMP, GFR, CBC, ADIFF, ANEU ####[address] [address] Hemoglobin (Bld) [Mass/Vol] 9.1 G/dL Low 12.0-16.0 [facility] ([place]) Comment on above: Performed By: #### M G, CMP, GFR, CBC, ADIFF, ANEU ####[address] [address] MCH (RBC) [Entitic mass] 33.0 pg Normal 27.0-33.0 [facility] ([place]) Comment on above: Performed By: #### M G, CMP, GFR, CBC, ADIFF, ANEU ####[address] [address] MCHC (RBC) [Mass/Vol] 33.2 G/dL Normal 32.0-36.0 [facility] ([place]) Comment on above: Performed By: #### M G, CMP, GFR, CBC, ADIFF, ANEU ####[address] [address] MCV (RBC) [Entitic vol] 99.6 fL High 80.0-99.0 [facility] ([place]) Comment on above: Performed By: #### M G, CMP, GFR, CBC, ADIFF, ANEU ####[address] [address] Platelet mean volume (Bld) [Entitic vol] 7.1 fL Normal 6.6-10.5 [facility] ([place]) Comment on above: Performed By: #### M G, CMP, GFR, CBC, ADIFF, ANEU ####[address] [address] Platelets (Bld) [#/Vol] 363 10 3/mcL Normal 150-450 [facility] ([place]) Comment on above: Performed By: #### M G, CMP, GFR, CBC, ADIFF, ANEU ####[address] [address] RBC (Bld) [#/Vol] 2.75 10 6/mcL Low 4.10-5.30 [facility] ([place]) Comment on above: Performed By: #### M G, CMP, GFR, CBC, ADIFF, ANEU ####[address] [address] WBC (Bld) [#/Vol] 17.90 10 3/mcL High 4.50-10.80 [facility] ([place]) Comment on above: Performed By: #### M G, CMP, GFR, CBC, ADIFF, ANEU ####[address] [address] CBLon 08-28-2019 CBL . MICRO - Microbiology [...] Locations *1: This test was performed at: [address], [address] [place] [address] ([place]) Comment on above: Performed By: #### C BC, CMP, GFR, DIFF, MORPH #### [place] [address] CBL . MICRO - Microbiology PROCEDURE: Blood [...] Locations *1: This test was performed at: [address], [address] [place] [address] ([place]) Comment on above: Performed By: #### C BC, CMP, GFR, DIFF, MORPH #### [place] [address] .GFRon 08-27-2019 GFR >60 [facility] ([place]) Comment on above: Result Comment: GFR Population [...] M G, CMP, GFR, CBC, ADIFF, ANEU ####[place] [address] GFR Non- >60 Normal [facility] ([place]) Comment on above: Result Comment: GFR Population [...] M G, CMP, GFR, CBC, ADIFF, ANEU ####[place] [address] .Manual Diffon 08-27-2019 Bands 1.0 % Normal 0.0-5.0 [facility] ([place]) Comment on above: Performed By: #### C BC, DIFF, MORPH ####[place] [address] Basophil %, Manual 0.0 % Normal 0.0-2.5 [facility] ([place]) Comment on above: Performed By: #### C BC, DIFF, MORPH ####[place] [address] Basophil, Abs Manual 0.00 10 3/mcL Normal 0.00-0.27 [facility] ([place]) Comment on above: Performed By: #### C BC, DIFF, MORPH ####[address] [address] Cells Counted 100 Normal [facility] ([place]) Comment on above: Performed By: #### C BC, DIFF, MORPH ####[address] [address] Eosinophil %, Manual 5.0 % Normal 0.0-6.0 [facility] ([place]) Comment on above: Performed By: #### C BC, DIFF, MORPH ####[address] [address] Eosinophil, Abs Manual 0.84 10 3/mcL High 0.00-0.65 [facility] ([place]) Comment on above: Performed By: #### C BC, DIFF, MORPH ####[address] [address] Lymphocyte %, Manual 5.0 % Low 20.0-40.0 [facility] ([place]) Comment on above: Performed By: #### C BC, DIFF, MORPH ####[address] [address] Lymphocyte, Abs Manual 0.84 10 3/mcL Low 0.90-4.32 [facility] ([place]) Comment on above: Performed By: #### C BC, DIFF, MORPH ####[address] [address] Monocyte %, Manual 6.0 % Normal 2.0-13.0 [facility] ([place]) Comment on above: Performed By: #### C BC, DIFF, MORPH ####[address] [address] Monocyte, Abs Manual 1.01 10 3/mcL Normal 0.09-1.40 [facility] ([place]) Comment on above: Performed By: #### C BC, DIFF, MORPH ####[address] [address] Neutrophil %, Manual 83.0 % High 50.0-75.0 [facility] ([place]) Comment on above: Performed By: #### C BC, DIFF, MORPH ####[place] [address] Neutrophil, Abs Manual 14.20 10 3/mcL High 2.25-8.10 [facility] ([place]) Comment on above: Performed By: #### C BC, DIFF, MORPH ####[address] [address] .Morphon 08-27-2019 Platelets (Bld) [#/Vol] Normal Normal [facility] ([place]) Comment on above: Performed By: #### C BC, DIFF, MORPH ####[place] [address] Polychrom Slight Normal [facility] ([place]) Comment on above: Performed By: #### C BC, DIFF, MORPH ####[place] [address] CBCon 08-27-2019 Erythrocyte distribution width (RBC) [Ratio] 14.2 % Normal 11.5-15.5 [facility] ([place]) Comment on above: Performed By: #### C BC, DIFF, MORPH ####[place] [address] Hematocrit (Bld) [Volume fraction] 29.2 % Low 34.0-46.0 [facility] ([place]) Comment on above: Performed By: #### C BC, DIFF, MORPH ####[place] [address] Hemoglobin (Bld) [Mass/Vol] 10.1 G/dL Low 12.0-16.0 [facility] ([place]) Comment on above: Performed By: #### C BC, DIFF, MORPH ####[place] [address] MCH (RBC) [Entitic mass] 33.8 pg High 27.0-33.0 [facility] ([place]) Comment on above: Performed By: #### C BC, DIFF, MORPH ####[place] [id number] MCHC (RBC) [Mass/Vol] 34.6 G/dL Normal 32.0-36.0 [facility] ([place]) Comment on above: Performed By: #### C BC, DIFF, MORPH ####[address] [address] MCV (RBC) [Entitic vol] 97.7 fL Normal 80.0-99.0 [facility] ([place]) Comment on above: Performed By: #### C BC, DIFF, MORPH ####[address] [address] Platelet mean volume (Bld) [Entitic vol] 6.6 fL Normal 6.6-10.5 [facility] ([place]) Comment on above: Performed By: #### C BC, DIFF, MORPH ####[address] [address] Platelets (Bld) [#/Vol] 342 10 3/mcL Normal 150-450 [facility] ([place]) Comment on above: Performed By: #### C BC, DIFF, MORPH ####[address] [address] RBC (Bld) [#/Vol] 2.99 10 6/mcL Low 4.10-5.30 [facility] ([place]) Comment on above: Performed By: #### C BC, DIFF, MORPH ####[place] [address] WBC (Bld) [#/Vol] 16.90 10 3/mcL High 4.50-10.80 [facility] ([place]) Comment on above: Performed By: #### C BC, DIFF, MORPH ####[place] [address] CMPon 08-27-2019 Albumin/Globulin [Mass ratio] 0.8 {ratio} Low 0.9-1.6 [facility] ([place]) Comment on above: Performed By: #### M G, CMP, GFR, CBC, ADIFF, ANEU ####[place] [phone] ALP [Catalytic activity/Vol] 99 U/L Normal 38-126 [facility] ([place]) Comment on above: Performed By: #### M G, CMP, GFR, CBC, ADIFF, ANEU ####[address] [address] ALT [Catalytic activity/Vol] 50 U/L High 10-49 [facility] ([place]) Comment on above: Performed By: #### M G, CMP, GFR, CBC, ADIFF, ANEU ####[place] [address] Bili Total 0.9 mg/dL Normal 0.2-1.2 [facility] ([place]) Comment on above: Result Comment: Use of this assay is not recommended for patients undergoing treatment with eltrombopag due to the potential for falsely elevated results. Performed By: #### M G, CMP, GFR, CBC, ADIFF, ANEU ####[place] [address] Creatinine [Mass/Vol] 0.39 mg/dL Low 0.50-1.20 [facility] ([place]) Comment on above: Performed By: #### M G, CMP, GFR, CBC, ADIFF, ANEU ####[place] [phone] Globulin (S) [Mass/Vol] 3.2 G/dL Normal 1.5-3.8 [facility] ([place]) Comment on above: Performed By: #### M G, CMP, GFR, CBC, ADIFF, ANEU ####[place] [address] Protein [Mass/Vol] 5.8 G/dL Low 6.0-8.5 [facility] ([place]) Comment on above: Performed By: #### M G, CMP, GFR, CBC, ADIFF, ANEU ####[address] [address] Urea nitrogen/Creatinine [Mass ratio] 25.6 ratio High 10.0-22.0 [facility] ([place]) Comment on above: Performed By: #### M G, CMP, GFR, CBC, ADIFF, ANEU ####[place] [phone] Potassium [Moles/Vol] 2.5 mmol/L Critically abnormal 3.5-5.0 [facility] ([place]) Comment on above: Performed By: #### M G, CMP, GFR, CBC, ADIFF, ANEU ####[place] [address] Albumin [Mass/Vol] 2.6 G/dL Low 3.2-4.8 [facility] ([place]) Comment on above: Performed By: #### M G, CMP, GFR, CBC, ADIFF, ANEU ####[place] [address] AST [Catalytic activity/Vol] 38 U/L High 8-34 [facility] ([place]) Comment on above: Performed By: #### M G, CMP, GFR, CBC, ADIFF, ANEU ####[place] [address] Calcium [Mass/Vol] 7.3 mg/dL Low 8.4-10.1 [facility] ([place]) Comment on above: Performed By: #### M G, CMP, GFR, CBC, ADIFF, ANEU ####[place] [address] Chloride [Moles/Vol] 96 mmol/L Low 98-110 [facility] ([place]) Comment on above: Performed By: #### M G, CMP, GFR, CBC, ADIFF, ANEU ####[place] [address] CO2 [Moles/Vol] 27 mmol/L Normal 22-32 [facility] ([place]) Comment on above: Performed By: #### M G, CMP, GFR, CBC, ADIFF, ANEU ####[place] [address] Electrolyte Balance 10.0 mEq/L Normal 4.0-15.0 [facility] ([place]) Comment on above: Performed By: #### M G, CMP, GFR, CBC, ADIFF, ANEU ####[place] [address] Glucose [Mass/Vol] 100 mg/dL Normal 82-115 [facility] ([place]) Comment on above: Performed By: #### M G, CMP, GFR, CBC, ADIFF, ANEU ####[place] [address] Sodium [Moles/Vol] 133 mmol/L Low 136-145 [facility] ([place]) Comment on above: Performed By: #### M G, CMP, GFR, CBC, ADIFF, ANEU ####[place] [address] Urea nitrogen [Mass/Vol] 10.0 mg/dL Normal 8.0-22.0 [facility] ([place]) Comment on above: Performed By: #### M G, CMP, GFR, CBC, ADIFF, ANEU ####[place] [address] MGon 08-27-2019 Magnesium [Mass/Vol] 1.9 mg/dL Normal 1.6-2.4 [facility] ([place]) Comment on above: Performed By: #### M G, CMP, GFR, CBC, ADIFF, ANEU ####[place] [address] .Auto Diffon 08-25-2019 Ammonia (P) [Mass/Vol] 1.40 10 3/mcL Normal 0.09-1.40 [facility] ([place] Comment on above: Performed By: #### C BC, CMP, GFR, DIFF, MORPH #### [place] [address] Basophils (Bld) [#/Vol] 0.00 10 3/mcL Normal 0.00-0.27 [facility] ([place] Comment on above: Performed By: #### C BC, CMP, GFR, DIFF, MORPH #### [place] [address] Basophils/100 WBC (Bld) 0.2 % Normal 0.0-2.5 [facility] ([place]) Comment on above: Performed By: #### C BC, CMP, GFR, DIFF, MORPH #### [place] [address] Eosinophils (Bld) [#/Vol] 0.10 10 3/mcL Normal 0.00-0.65 [facility] ([place] Comment on above: Performed By: #### C BC, CMP, GFR, DIFF, MORPH #### [address] [address] Eosinophils/100 WBC (Bld) 0.3 % Normal 0.0-6.0 [facility] ([place]) Comment on above: Performed By: #### C BC, CMP, GFR, DIFF, MORPH #### [address] [address] Lymphocytes (Bld) [#/Vol] 0.60 10 3/mcL Low 0.90-4.32 [facility] ([place]) Comment on above: Performed By: #### C BC, CMP, GFR, DIFF, MORPH #### [address] [address] Lymphocytes/100 WBC (Bld) 2.9 % Low 20.0-40.0 [facility] ([place]) Comment on above: Performed By: #### C BC, CMP, GFR, DIFF, MORPH #### [address] [address] Monocytes/100 WBC (Bld) 7.4 % Normal 2.0-13.0 [facility] ([place]) Comment on above: Performed By: #### C BC, CMP, GFR, DIFF, MORPH #### [address] [address] Neutrophils/100 WBC (Bld) 89.2 % High 50.0-75.0 [facility] ([place]) Comment on above: Performed By: #### C BC, CMP, GFR, DIFF, MORPH #### [address] [address] .GFRon 08-25-2019 GFR >60 Normal [facility] ([place]) Comment on above: Result Comment: [...] C BC, CMP, GFR, DIFF, MORPH #### [address] [address] GFR Non- >60 Normal [facility] ([place]) Comment on above: Result Comment: GFR Population [...] C BC, CMP, GFR, DIFF, MORPH #### [address] [address] .NEUABSon 08-25-2019 Neutrophils (Bld) [#/Vol] 17.20 10 3/mcL High 2.25-8.10 [facility] ([place] Comment on above: Performed By: #### C BC, CMP, GFR, DIFF, MORPH #### [address] [address] BMPon 08-25-2019 Calcium [Mass/Vol] 6.7 mg/dL Critically abnormal 8.4-10.1 [facility] ([place] Comment on above: Performed By: #### C BC, CMP, GFR, DIFF, MORPH #### [address] [address] Potassium [Moles/Vol] 2.6 mmol/L Critically abnormal 3.5-5.0 [facility] ([place] Comment on above: Performed By: #### C BC, CMP, GFR, DIFF, MORPH #### [address] [address] Chloride [Moles/Vol] 99 mmol/L Normal 98-110 [facility] ([place]) Comment on above: Performed By: #### C BC, CMP, GFR, DIFF, MORPH #### [address] [address] CO2 [Moles/Vol] 25 mmol/L Normal 22-32 [facility] ([place] Comment on above: Performed By: #### C BC, CMP, GFR, DIFF, MORPH #### [address] [address] Creatinine [Mass/Vol] 0.38 mg/dL Low 0.50-1.20 [facility] ([place]) Comment on above: Performed By: #### C BC, CMP, GFR, DIFF, MORPH #### [address] [address] Electrolyte Balance 11.0 mEq/L Normal 4.0-15.0 [facility] ([place]) Comment on above: Performed By: #### C BC, CMP, GFR, DIFF, MORPH #### [address] [address] Glucose [Mass/Vol] 72 mg/dL Low 82-115 [facility] ([place]) Comment on above: Performed By: #### C BC, CMP, GFR, DIFF, MORPH #### [address] [address] Sodium [Moles/Vol] 135 mmol/L Low 136-145 [facility] ([place]) Comment on above: Performed By: #### C BC, CMP, GFR, DIFF, MORPH #### [address] [address] Urea nitrogen [Mass/Vol] 20.0 mg/dL Normal 8.0-22.0 [facility] [facility] ([place]) Comment on above: Performed By: #### C BC, CMP, GFR, DIFF, MORPH #### [address] [address] Urea nitrogen/Creatinine [Mass ratio] 52.6 ratio High 10.0-22.0 [facility] ([place]) Comment on above: Performed By: #### C BC, CMP, GFR, DIFF, MORPH #### [address] [address] CBCon 08-25-2019 Erythrocyte distribution width (RBC) [Ratio] 14.5 % Normal 11.5-15.5 [facility] ([place]) Comment on above: Performed By: #### C BC, CMP, GFR, DIFF, MORPH #### [place] [id number] Hematocrit (Bld) [Volume fraction] 27.5 % Low 34.0-46.0 [facility] ([place]) Comment on above: Performed By: #### C BC, CMP, GFR, DIFF, MORPH #### [place] [id number] Hemoglobin (Bld) [Mass/Vol] 9.1 G/dL Low 12.0-16.0 [facility] ([place]) Comment on above: Performed By: #### C BC, CMP, GFR, DIFF, MORPH #### [place] [address] MCH (RBC) [Entitic mass] 33.1 pg High 27.0-33.0 [facility] ([place]) Comment on above: Performed By: #### C BC, CMP, GFR, DIFF, MORPH #### [place] [id number] MCHC (RBC) [Mass/Vol] 33.3 G/dL Normal 32.0-36.0 [facility] ([place]) Comment on above: Performed By: #### C BC, CMP, GFR, DIFF, MORPH #### [place] [phone] MCV (RBC) [Entitic vol] 99.7 fL High 80.0-99.0 [facility] ([place]) Comment on above: Performed By: #### C BC, CMP, GFR, DIFF, MORPH #### [place] [phone] Platelet mean volume (Bld) [Entitic vol] 7.5 fL Normal 6.6-10.5 [facility] ([place]) Comment on above: Performed By: #### C BC, CMP, GFR, DIFF, MORPH #### [facility] [address] [place] [address] Platelets (Bld) [#/Vol] 211 10 3/mcL Normal 150-450 [facility] ([place]) Comment on above: Performed By: #### C BC, CMP, GFR, DIFF, MORPH #### [address] [address] RBC (Bld) [#/Vol] 2.76 10 6/mcL Low 4.10-5.30 [facility] ([place]) Comment on above: Performed By: #### C BC, CMP, GFR, DIFF, MORPH #### [address] [address] WBC (Bld) [#/Vol] 19.30 10 3/mcL High 4.50-10.80 [facility] ([place]) Comment on above: Performed By: #### C BC, CMP, GFR, DIFF, MORPH #### [address] [address] COVIDon 08-25-2019 COVID 19 Result 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 This test was developed and its performance characteristics determined by [facility]'s [facility] [place]. This test has been authorized by FDA under an Emergency Use Authorization (EUA). This test has been validated in accordance with the FDA's Guidance Document Policy for Diagnostics Testing in Laboratories Certified to Perform High Complexity Testing under CLIA prior to Emergency use Authorization for Coronavirus Disease 2019 during the Public Health Emergency issued on June 20, 2019. Performed By: [facility] [employer] [address] [place] [address] Clinical Support Manager: Rigoberto Avery III, M.D. CLIA#: [id number] Phone#: Performed By: #### C BC, CMP, GFR, DIFF, MORPH #### [place] [address] COVID 19 Source IRONWORKER APPRENTICE See Below Normal [facility] ([place]) Comment on above: Result Comment: Naso pharyngeal Swab Performed By: [facility] [address] [place] [address] Clinical Support Manager: Ada Clay III#: [id number] Phone#: Performed By: #### C BC, CMP, GFR, DIFF, MORPH #### [place] [address] CURon 08-25-2019 CUR . MICRO - Microbiology [...] Locations *1: This test was performed at: [address], [address] [place] [address] ([place]) Comment on above: Performed By: #### C BC, CMP, GFR, DIFF, MORPH #### [place] [address] Jeffrey 08-25-2019 Potassium [Moles/Vol] 3.3 mmol/L Low 3.5-5.0 [facility] ([place]) Comment on above: Performed By: #### C BC, CMP, GFR, DIFF, MORPH #### [place] [address] MGon 08-25-2019 Magnesium [Mass/Vol] 2.3 mg/dL Normal 1.6-2.4 [facility] ([place]) Comment on above: Performed By: #### C BC, CMP, GFR, DIFF, MORPH #### [address] [address] PHOSon 08-25-2019 Phosphate [Mass/Vol] 2.6 mg/dL Normal 2.5-4.5 [facility] ([place]) Comment on above: Performed By: #### C BC, CMP, GFR, DIFF, MORPH #### [address] [address] .Auto Diffon 08-24-2019 Ammonia (P) [Mass/Vol] 1.50 10 3/mcL High 0.09-1.40 [facility] ([place]) Comment on above: Performed By: #### C BC, CMP, GFR, DIFF, MORPH #### [address] [address] Basophils (Bld) [#/Vol] 0.00 10 3/mcL Normal 0.00-0.27 [facility] ([place]) Comment on above: Performed By: #### C BC, CMP, GFR, DIFF, MORPH #### [address] [address] Basophils/100 WBC (Bld) 0.1 % Normal 0.0-2.5 [facility] ([place]) Comment on above: Performed By: #### C BC, CMP, GFR, DIFF, MORPH #### [address] [address] Eosinophils (Bld) [#/Vol] 0.00 10 3/mcL Normal 0.00-0.65 [facility] ([place]) Comment on above: Performed By: #### C BC, CMP, GFR, DIFF, MORPH #### [address] [address] Eosinophils/100 WBC (Bld) 0.2 % Normal 0.0-6.0 [facility] ([place]) Comment on above: Performed By: #### C BC, CMP, GFR, DIFF, MORPH #### [address] [address] Lymphocytes (Bld) [#/Vol] 1.00 10 3/mcL Normal 0.90-4.32 [facility] ([place]) Comment on above: Performed By: #### C BC, CMP, GFR, DIFF, MORPH #### [address] [address] Lymphocytes/100 WBC (Bld) 4.2 % Low 20.0-40.0 [facility] ([place]) Comment on above: Performed By: #### C BC, CMP, GFR, DIFF, MORPH #### [address] [address] Monocytes/100 WBC (Bld) 6.7 % Normal 2.0-13.0 [facility] ([place]) Comment on above: Performed By: #### C BC, CMP, GFR, DIFF, MORPH #### [address] [address] Neutrophils/100 WBC (Bld) 88.8 % High 50.0-75.0 [facility] ([place]) Comment on above: Performed By: #### C BC, CMP, GFR, DIFF, MORPH #### [address] [address] .GFRon 08-24-2019 GFR Non- >60 Normal [facility] ([place]) Comment on above: Result Comment: GFR Population [...] C BC, CMP, GFR, DIFF, MORPH #### [address] [address] GFR >60 Normal [facility] ([place]) Comment on above: Result Comment: GFR Population [...] C BC, CMP, GFR, DIFF, MORPH #### [place] [address] .Morphon 08-24-2019 Anisocytosis Ql (Bld) Slight Normal [facility] ([place]) Comment on above: Performed By: #### C BC, CMP, GFR, DIFF, MORPH #### [place] [address] Hypochrom Slight Normal [facility] ([place]) Comment on above: Performed By: #### C BC, CMP, GFR, DIFF, MORPH #### [place] [address] Platelets (Bld) [#/Vol] Normal Normal [facility] ([place]) Comment on above: Performed By: #### C BC, CMP, GFR, DIFF, MORPH #### [place] [address] Poik Slight Normal [facility] ([place]) Comment on above: Performed By: #### C BC, CMP, GFR, DIFF, MORPH #### [place] [address] .NEUABSon 08-24-2019 Neutrophils (Bld) [#/Vol] 20.50 10 3/mcL High 2.25-8.10 [facility] ([place]) Comment on above: Performed By: #### C BC, CMP, GFR, DIFF, MORPH #### [place] [address] AMYon 08-24-2019 Amylase [Catalytic activity/Vol] 85 U/L Normal 25-115 [facility] ([place]) Comment on above: Performed By: #### C BC, CMP, GFR, DIFF, MORPH #### [place] [address] APTTon 08-24-2019 aPTT Coag (Bld) [Time] 26.2 s Normal 25.0-35.0 [facility] ([place]) Comment on above: Result Comment: For Heparin anticoagulation therapy, the recommended therapeutic range is: 54-77 seconds (APTT Correlation with Anti-Xa therapeutic range of 0.3-0.7 units/ml). PLEASE REFERENCE THE PHARMACY PROTOCOL FOR DOSING. Performed By: #### C BC, CMP, GFR, DIFF, MORPH #### [place] [phone] aPTT Coag (Bld) [Time] None Normal [facility] ([place]) Comment on above: Performed By: #### C BC, CMP, GFR, DIFF, MORPH #### [address] [address] CBCon 08-24-2019 Erythrocyte distribution width (RBC) [Ratio] 14.2 % Normal 11.5-15.5 [facility] ([place]) Comment on above: Performed By: #### C BC, CMP, GFR, DIFF, MORPH #### [place] [phone] Hematocrit (Bld) [Volume fraction] 28.9 % Low 34.0-46.0 [facility] ([place]) Comment on above: Performed By: #### C BC, CMP, GFR, DIFF, MORPH #### [address] [address] Hemoglobin (Bld) [Mass/Vol] 9.8 G/dL Low 12.0-16.0 [facility] ([place]) Comment on above: Performed By: #### C BC, CMP, GFR, DIFF, MORPH #### [address] [address] MCH (RBC) [Entitic mass] 33.7 pg High 27.0-33.0 [facility] ([place]) Comment on above: Performed By: #### C BC, CMP, GFR, DIFF, MORPH #### [address] [address] MCHC (RBC) [Mass/Vol] 33.8 G/dL Normal 32.0-36.0 [facility] ([place]) Comment on above: Performed By: #### C BC, CMP, GFR, DIFF, MORPH #### [address] [address] MCV (RBC) [Entitic vol] 99.7 fL High 80.0-99.0 [facility] ([place]) Comment on above: Performed By: #### C BC, CMP, GFR, DIFF, MORPH #### [address] [address] Platelet mean volume (Bld) [Entitic vol] 8.5 fL Normal 6.6-10.5 [facility] ([place]) Comment on above: Performed By: #### C BC, CMP, GFR, DIFF, MORPH #### [address] [address] Platelets (Bld) [#/Vol] 201 10 3/mcL Normal 150-450 [facility] ([place]) Comment on above: Performed By: #### C BC, CMP, GFR, DIFF, MORPH #### [place] [phone] RBC (Bld) [#/Vol] 2.90 10 6/mcL Low 4.10-5.30 [facility] ([place]) Comment on above: Performed By: #### C BC, CMP, GFR, DIFF, MORPH #### [place] [phone] WBC (Bld) [#/Vol] 23.10 10 3/mcL High 4.50-10.80 [facility] ([place]) Comment on above: Performed By: #### C BC, CMP, GFR, DIFF, MORPH #### [address] [address] CKon 08-24-2019 CK [Catalytic activity/Vol] 71 U/L Normal 7-185 [facility] ([place]) Comment on above: Performed By: #### C BC, CMP, GFR, DIFF, MORPH #### [address] [address] CMPon 08-24-2019 Albumin/Globulin [Mass ratio] 1.0 {ratio} Normal 0.9-1.6 [facility] ([place]) Comment on above: Performed By: #### C BC, CMP, GFR, DIFF, MORPH #### [address] [address] ALP [Catalytic activity/Vol] 77 U/L Normal 38-126 [facility] ([place]) Comment on above: Performed By: #### C BC, CMP, GFR, DIFF, MORPH #### [address] [address] Bili Total 1.1 mg/dL Normal 0.2-1.2 [facility] ([place]) Comment on above: Result Comment: Use of this assay is not recommended for patients undergoing treatment with eltrombopag due to the potential for falsely elevated results. Performed By: #### C BC, CMP, GFR, DIFF, MORPH #### [address] [address] Creatinine [Mass/Vol] 0.48 mg/dL Low 0.50-1.20 [facility] ([place]) Comment on above: Performed By: #### C BC, CMP, GFR, DIFF, MORPH #### [address] [address] Globulin (S) [Mass/Vol] 3.0 G/dL Normal 1.5-3.8 [facility] ([place]) Comment on above: Performed By: #### C BC, CMP, GFR, DIFF, MORPH #### [address] [address] Protein [Mass/Vol] 5.9 G/dL Low 6.0-8.5 [facility] ([place]) Comment on above: Performed By: #### C BC, CMP, GFR, DIFF, MORPH #### [address] [address] Urea nitrogen/Creatinine [Mass ratio] 41.7 ratio High 10.0-22.0 [facility] ([place]) Comment on above: Performed By: #### C BC, CMP, GFR, DIFF, MORPH #### [address] [address] Albumin [Mass/Vol] 2.9 G/dL Low 3.2-4.8 [facility] ([place]) Comment on above: Performed By: #### C BC, CMP, GFR, DIFF, MORPH #### [address] [address] ALT [Catalytic activity/Vol] 48 U/L Normal 10-49 [facility] ([place]) Comment on above: Performed By: #### C BC, CMP, GFR, DIFF, MORPH #### [address] [address] AST [Catalytic activity/Vol] 27 U/L Normal 8-34 [facility] ([place]) Comment on above: Performed By: #### C BC, CMP, GFR, DIFF, MORPH #### [address] [address] Calcium [Mass/Vol] 7.3 mg/dL Low 8.4-10.1 [facility] ([place]) Comment on above: Performed By: #### C BC, CMP, GFR, DIFF, MORPH #### [address] [address] Chloride [Moles/Vol] 94 mmol/L Low 98-110 [facility] ([place]) Comment on above: Performed By: #### C BC, CMP, GFR, DIFF, MORPH #### [address] [address] CO2 [Moles/Vol] 28 mmol/L Normal 22-32 [facility] ([place]) Comment on above: Performed By: #### C BC, CMP, GFR, DIFF, MORPH #### [address] [address] Electrolyte Balance 10.0 mEq/L Normal 4.0-15.0 [facility] ([place]) Comment on above: Performed By: #### C BC, CMP, GFR, DIFF, MORPH #### [address] [address] Glucose [Mass/Vol] 100 mg/dL Normal 82-115 [facility] ([place]) Comment on above: Performed By: #### C BC, CMP, GFR, DIFF, MORPH #### [address] [address] Potassium [Moles/Vol] 2.8 mmol/L Low 3.5-5.0 [facility] ([place]) Comment on above: Performed By: #### C BC, CMP, GFR, DIFF, MORPH #### [place] [address] Sodium [Moles/Vol] 132 mmol/L Low 136-145 [facility] ([place]) Comment on above: Performed By: #### C BC, CMP, GFR, DIFF, MORPH #### [place] [address] Urea nitrogen [Mass/Vol] 20.0 mg/dL Normal 8.0-22.0 [facility] ([place]) Comment on above: Performed By: #### C BC, CMP, GFR, DIFF, MORPH #### [place] [address] CRPon 08-24-2019 CRP [Mass/Vol] 32.20 mg/dL High <=0.80 [facility] ([place]) Comment on above: Performed By: #### C BC, CMP, GFR, DIFF, MORPH #### [place] [address] CT HEAD OR BRAIN W/O CONTRAS Ton [...] 9:25:31 AM Ordering Provider:Cristina Salcido Normal [facility] ([place]) DIMERon 08-24-2019 Fibrin D-dimer FEU IA (Bld) [Mass/Vol] 1800 ng/mL D-DU High 0-230 [facility]) Comment on above: Result Comment: Resu lts [...] C BC, CMP, GFR, DIFF, MORPH #### [address] [address] Trixie 08-24-2019 Ferritin [Mass/Vol] 236 ng/mL Normal 8-252 [facility] ([place]) Comment on above: Performed By: #### C BC, CMP, GFR, DIFF, MORPH #### [address] [address] FIBon 08-24-2019 Fibrinogen 482 mg/dL Normal 250-550 [facility] ([place]) Comment on above: Performed By: #### C BC, CMP, GFR, DIFF, MORPH #### [address] [address] LIPon 08-24-2019 Lipase Level 312 U/L Normal 73-393 [facility] ([place]) Comment on above: Performed By: #### C BC, CMP, GFR, DIFF, MORPH #### [address] [address] MGon 08-24-2019 Magnesium [Mass/Vol] 1.9 mg/dL Normal 1.6-2.4 [facility] ([place]) Comment on above: Performed By: #### C BC, CMP, GFR, DIFF, MORPH #### [address] [address] PBNPon 08-24-2019 Natriuretic peptide B (Bld) [Mass/Vol] 369 pg/mL Normal 0-900 [facility] ([place]) Comment on above: Result Comment: NT-p roBNP results of less than 300 pg/mL effectively rules out acute congestive heart failure with 99% negative predictive value. Performed By: #### C BC, CMP, GFR, DIFF, MORPH #### [address] [address] PHOSon 08-24-2019 Phosphate [Mass/Vol] 2.2 mg/dL Low 2.5-4.5 [facility] ([place]) Comment on above: Performed By: #### C BC, CMP, GFR, DIFF, MORPH #### [address] [address] Phosphate [Mass/Vol] 2.0 mg/dL Low 2.5-4.5 [facility] ([place]) Comment on above: Performed By: #### C BC, CMP, GFR, DIFF, MORPH #### [address] [address] PROon 08-24-2019 INR Coag (PPP) [Relative time] 1.2 {INR} Normal [facility] ([place]) Comment on above: Result Comment: [employer] (CHEST, 1991, 102:[id number]) recommended therapeutic range for oral anticoagulant therapy is: LOW RISK: Prophylaxis of venous thrombosis INR: 2.0-3.0 Treatment of pulmonary embolism 2.0-3.0 Prevention of systemic embolism 2.0-3.0 HIGH RISK: Mechanical prosthetic valves 2.5-3.5 Performed By: #### C BC, CMP, GFR, DIFF, MORPH #### [address] [address] PT Coag (PPP) [Time] 13.8 s Normal 9.0-14.6 [facility] ([place]) Comment on above: Result Comment: Effe ctive 11/04/07, Protime results may be affected by some antibiotics (i.e. Ciprofloxacin, Azithromycin, Bactrim) which may potentiate the action of oral anticoagulants, with further increases in Protime/INR. Performed By: #### C BC, CMP, GFR, DIFF, MORPH #### [address] [address] TRIGon 08-24-2019 Triglyceride [Mass/Vol] 71 mg/dL Normal 3-149 [facility] ([place]) Comment on above: Result Comment: Trig lyceride Reference Interval: Less than 150 Normal 150-199 Borderline high risk 200-499 High risk 500 or higher Very high risk Performed By: #### C BC, CMP, GFR, DIFF, MORPH #### [place] [id number] Triglyceride [Mass/Vol] 74 mg/dL Normal 3-149 [facility] ([place]) Comment on above: Result Comment: Trig lyceride Reference Interval: Less than 150 Normal 150-199 Borderline high risk 200-499 High risk 500 or higher Very high risk Performed By: #### C BC, CMP, GFR, DIFF, MORPH #### [place] [id number] TROPIon 08-24-2019 Troponin I.cardiac [Mass/Vol] ng/mL Normal 0.000-0.040 [facility] ([place]) Comment on above: Result Comment: Trop onin I reference ranges (12/28/13): 0.00-0.040 ng/mL Negative and non-diagnostic. >0.040 ng/mL Consistent with cardiac damage, increased clinical risk and possibility of myocardial infarction. Serial measurements, a rise & fall in test results, clinical history, appropriate symptoms and/or ECG changes may help assess possibility of NE. *Other non-acute coronary syndrome conditions such as CHF, myocarditis, pulmonary emboli, sepsis and cardiac surgery could result in myocardial damage and increased troponin levels. Performed By: #### C BC, CMP, GFR, DIFF, MORPH #### [place] [id number] .GFRon 08-23-2019 GFR Non- >60 Normal [facility] ([place]) Comment on above: Result Comment: GFR Population [...] C BC, CMP, GFR, DIFF, MORPH #### [address] [address] GFR >60 Normal [facility] ([place]) Comment on above: Result Comment: GFR Population [...] C BC, CMP, GFR, DIFF, MORPH #### [address] [address] .Manual Diffon 08-23-2019 Bands 2.0 % Normal 0.0-5.0 [facility] ([place]) Comment on above: Performed By: #### C BC, CMP, GFR, DIFF, MORPH #### [address] [address] Basophil %, Manual 0.0 % Normal 0.0-2.5 [facility] ([place]) Comment on above: Performed By: #### C BC, CMP, GFR, DIFF, MORPH #### [address] [address] Basophil, Abs Manual 0.00 10 3/mcL Normal 0.00-0.27 [facility] ([place]) Comment on above: Performed By: #### C BC, CMP, GFR, DIFF, MORPH #### [address] [address] Cells Counted 100 Normal [facility] ([place]) Comment on above: Performed By: #### C BC, CMP, GFR, DIFF, MORPH #### [address] [address] Eosinophil %, Manual 0.0 % Normal 0.0-6.0 [facility] ([place]) Comment on above: Performed By: #### C BC, CMP, GFR, DIFF, MORPH #### [address] [address] Eosinophil, Abs Manual 0.00 10 3/mcL Normal 0.00-0.65 [facility] ([place]) Comment on above: Performed By: #### C BC, CMP, GFR, DIFF, MORPH #### [address] [address] Lymphocyte %, Manual 9.0 % Low 20.0-40.0 [facility] ([place]) Comment on above: Performed By: #### C BC, CMP, GFR, DIFF, MORPH #### [address] [address] Lymphocyte, Abs Manual 2.18 10 3/mcL Normal 0.90-4.32 [facility] ([place]) Comment on above: Performed By: #### C BC, CMP, GFR, DIFF, MORPH #### [address] [address] Monocyte %, Manual 5.0 % Normal 2.0-13.0 [facility] ([place]) Comment on above: Performed By: #### C BC, CMP, GFR, DIFF, MORPH #### [address] [address] Monocyte, Abs Manual 1.21 10 3/mcL Normal 0.09-1.40 [facility] ([place]) Comment on above: Performed By: #### C BC, CMP, GFR, DIFF, MORPH #### [place] [address] Neutrophil %, Manual 84.0 % High 50.0-75.0 [facility] ([place]) Comment on above: Performed By: #### C BC, CMP, GFR, DIFF, MORPH #### [place] [address] Neutrophil, Abs Manual 18.41 10 3/mcL High 2.25-8.10 [facility] ([place]) Comment on above: Performed By: #### C BC, CMP, GFR, DIFF, MORPH #### [place] [address] .Morphon 08-23-2019 Platelets (Bld) [#/Vol] Normal Normal [facility] ([place]) Comment on above: Performed By: #### C BC, CMP, GFR, DIFF, MORPH #### [place] [address] RBC morphology finding Nom (Bld) Normal Normal [facility] ([place]) Comment on above: Performed By: #### C BC, CMP, GFR, DIFF, MORPH #### [place] [address] Benji 08-23-2019 Ethanol Level <10.0 Normal [facility] ([place]) Comment on above: Performed By: #### C BC, CMP, GFR, DIFF, MORPH #### [place] [address] APTTon 08-23-2019 aPTT Coag (Bld) [Time] None Normal [facility] ([place]) Comment on above: Performed By: #### A PTT, PRO #### [place] [address] aPTT Coag (Bld) [Time] 23.8 s Low 25.0-35.0 [facility] ([place]) Comment on above: Result Comment: For Heparin anticoagulation therapy, the recommended therapeutic range is: 54-77 seconds (APTT Correlation with Anti-Xa therapeutic range of 0.3-0.7 units/ml). PLEASE REFERENCE THE PHARMACY PROTOCOL FOR DOSING. Performed By: #### A PTT, PRO #### [place] [id number] CBCon 08-23-2019 Erythrocyte distribution width (RBC) [Ratio] 14.0 % Normal 11.5-15.5 [facility] ([place]) Comment on above: Performed By: #### C BC, CMP, GFR, DIFF, MORPH #### [place] [address] Hematocrit (Bld) [Volume fraction] 29.7 % Low 34.0-46.0 [facility] ([place]) Comment on above: Performed By: #### C BC, CMP, GFR, DIFF, MORPH #### [place] [address] Hemoglobin (Bld) [Mass/Vol] 10.3 G/dL Low 12.0-16.0 [facility] ([place]) Comment on above: Performed By: #### C BC, CMP, GFR, DIFF, MORPH #### [place] [id number] MCH (RBC) [Entitic mass] 33.9 pg High 27.0-33.0 [facility] ([place]) Comment on above: Performed By: #### C BC, CMP, GFR, DIFF, MORPH #### [place] [phone] MCHC (RBC) [Mass/Vol] 34.7 G/dL Normal 32.0-36.0 [facility] ([place]) Comment on above: Performed By: #### C BC, CMP, GFR, DIFF, MORPH #### [place] [phone] MCV (RBC) [Entitic vol] 97.7 fL Normal 80.0-99.0 [facility] ([place]) Comment on above: Performed By: #### C BC, CMP, GFR, DIFF, MORPH #### [place] [phone] Platelet mean volume (Bld) [Entitic vol] 8.0 fL Normal 6.6-10.5 [facility] ([place]) Comment on above: Performed By: #### C BC, CMP, GFR, DIFF, MORPH #### [place] [id number] Platelets (Bld) [#/Vol] 193 10 3/mcL Normal 150-450 [facility] ([place]) Comment on above: Performed By: #### C BC, CMP, GFR, DIFF, MORPH #### [place] [id number] RBC (Bld) [#/Vol] 3.04 10 6/mcL Low 4.10-5.30 [facility] ([place]) Comment on above: Performed By: #### C BC, CMP, GFR, DIFF, MORPH #### [place] [id number] WBC (Bld) [#/Vol] 24.20 10 3/mcL High 4.50-10.80 [facility] ([place]) Comment on above: Performed By: #### C BC, CMP, GFR, DIFF, MORPH #### [place] [address] CMPon 08-23-2019 Albumin/Globulin [Mass ratio] 0.9 {ratio} Normal 0.9-1.6 [facility] ([place]) Comment on above: Performed By: #### C BC, CMP, GFR, DIFF, MORPH #### [place] [address] ALP [Catalytic activity/Vol] 71 U/L Normal 38-126 [facility] ([place]) Comment on above: Performed By: #### C BC, CMP, GFR, DIFF, MORPH #### [place] [id number] Bili Total 1.7 mg/dL High 0.2-1.2 [facility] ([place]) Comment on above: Result Comment: Use of this assay is not recommended for patients undergoing treatment with eltrombopag due to the potential for falsely elevated results. Performed By: #### C BC, CMP, GFR, DIFF, MORPH #### [address] [address] Creatinine [Mass/Vol] 0.40 mg/dL Low 0.50-1.20 [facility] ([place]) Comment on above: Performed By: #### C BC, CMP, GFR, DIFF, MORPH #### [address] [address] Globulin (S) [Mass/Vol] 3.5 G/dL Normal 1.5-3.8 [facility] ([place]) Comment on above: Performed By: #### C BC, CMP, GFR, DIFF, MORPH #### [address] [address] Glucose [Mass/Vol] 120 mg/dL High 82-115 [facility] ([place]) Comment on above: Performed By: #### C BC, CMP, GFR, DIFF, MORPH #### [address] [address] Protein [Mass/Vol] 6.8 G/dL Normal 6.0-8.5 [facility] ([place]) Comment on above: Performed By: #### C BC, CMP, GFR, DIFF, MORPH #### [address] [address] Urea nitrogen/Creatinine [Mass ratio] 57.5 ratio High 10.0-22.0 [facility] ([place]) Comment on above: Performed By: #### C BC, CMP, GFR, DIFF, MORPH #### [address] [address] Albumin [Mass/Vol] 3.3 G/dL Normal 3.2-4.8 [facility] ([place]) Comment on above: Performed By: #### C BC, CMP, GFR, DIFF, MORPH #### [address] [address] ALT [Catalytic activity/Vol] 61 U/L High 10-49 [facility] ([place]) Comment on above: Performed By: #### C BC, CMP, GFR, DIFF, MORPH #### [address] [address] AST [Catalytic activity/Vol] 41 U/L High 8-34 [facility] ([place]) Comment on above: Performed By: #### C BC, CMP, GFR, DIFF, MORPH #### [address] [address] Calcium [Mass/Vol] 7.4 mg/dL Low 8.4-10.1 [facility] ([place]) Comment on above: Performed By: #### C BC, CMP, GFR, DIFF, MORPH #### [address] [address] Chloride [Moles/Vol] 94 mmol/L Low 98-110 [facility] ([place]) Comment on above: Performed By: #### C BC, CMP, GFR, DIFF, MORPH #### [address] [address] CO2 [Moles/Vol] 27 mmol/L Normal 22-32 [facility] ([place]) Comment on above: Performed By: #### C BC, CMP, GFR, DIFF, MORPH #### [address] [address] Electrolyte Balance 9.0 mEq/L Normal 4.0-15.0 [facility] ([place]) Comment on above: Performed By: #### C BC, CMP, GFR, DIFF, MORPH #### [address] [address] Potassium [Moles/Vol] 2.9 mmol/L Low 3.5-5.0 [facility] ([place]) Comment on above: Performed By: #### C BC, CMP, GFR, DIFF, MORPH #### [address] [address] Sodium [Moles/Vol] 130 mmol/L Low 136-145 [facility] ([place]) Comment on above: Performed By: #### C BC, CMP, GFR, DIFF, MORPH #### [address] [address] Urea nitrogen [Mass/Vol] 23.0 mg/dL High 8.0-22.0 [facility] ([place]) Comment on above: Performed By: #### C BC, CMP, GFR, DIFF, MORPH #### [address] [place], [place] [address] CT ABD/PELVIS W/ IV CONTRAST ONLYon 08-23-2019 [...] PM Sign Date: 08/23/2019 7:20:52 PM Ordering Provider:[facility]) CT THORAX W/ CONTRASTon CT THORAX W/ CONTRAST ORIGINAL CT THORAX [...] PM Sign Date: 08/23/2019 7:09:11 PM Ordering Provider:[facility] ([place]) LIPon 08-23-2019 Lipase Level 1226 U/L High 73-393 [facility] ([place]) Comment on above: Performed By: #### C BC, CMP, GFR, DIFF, MORPH #### [place] [address] PROon 08-23-2019 INR Coag (PPP) [Relative time] 1.2 {INR} [facility] ([place]) Comment on above: Result Comment: The [employer] (CHEST, 1991, [id number]) recommended therapeutic range for oral anticoagulant therapy is: LOW RISK: Prophylaxis of venous thrombosis INR: 2.0-3.0 Treatment of pulmonary embolism 2.0-3.0 Prevention of systemic embolism 2.0-3.0 HIGH RISK: Mechanical prosthetic valves 2.5-3.5 Performed By: #### C BC, CMP, GFR, DIFF, MORPH #### [place] [address] PT Coag (PPP) [Time] 14.5 s Normal 9.0-14.6 [facility] ([place]) Comment on above: Result Comment: Effe ctive 11/04/07, Protime results may be affected by some antibiotics (i.e. Ciprofloxacin, Azithromycin, Bactrim) which may potentiate the action of oral anticoagulants, with further increase in Protime/INR. Performed By: #### C BC, CMP, GFR, DIFF, MORPH #### [place] [address] RESPIDon 08-23-2019 Adenovirus Not Detected Normal Not Detected [facility] ([place]) Comment on above: Order Comment: Order added by [email or web address] Performed By: #### C BC, CMP, GFR, DIFF, MORPH #### [place] [address] Bordetella Parapertussis Not Detected Normal Not Detected [facility] ([place]) Comment on above: Order Comment: Order added by [email or web address] Performed By: #### C BC, CMP, GFR, DIFF, MORPH #### [place] [address] Bordetella Pertussis Not Detected Normal Not Detected [facility] ([place]) Comment on above: Order Comment: Order added by [email or web address] Performed By: #### C BC, CMP, GFR, DIFF, MORPH #### [place] [address] Chlamydophila pneumoniae Not Detected Normal Not Detected [facility] ([place]) Comment on above: Order Comment: Order added by [email or web address] Performed By: #### C BC, CMP, GFR, DIFF, MORPH #### [place] [address] Coronavirus 229E (Not COVID-19) Not Detected Normal Not Detected [facility] ([place]) Comment on above: Order Comment: Order added by [email or web address] Performed By: #### C BC, CMP, GFR, DIFF, MORPH #### [place] [address] Coronavirus HKU1 (Not COVID-19) Not Detected Normal Not Detected [facility] ([place]) Comment on above: Order Comment: Order added by [email or web address] Performed By: #### C BC, CMP, GFR, DIFF, MORPH #### [place] [address] Coronavirus NL63 (Not COVID-19) Not Detected Normal Not Detected [facility] ([place]) Comment on above: Order Comment: Order added by [email or web address] Performed By: #### C BC, CMP, GFR, DIFF, MORPH #### [place] [address] Coronavirus OC43 (Not COVID-19) Not Detected Normal Not Detected [facility] ([place]) Comment on above: Order Comment: Order added by [email or web address] Performed By: #### C BC, CMP, GFR, DIFF, MORPH #### [place] [address] Human Metapneumovirus Not Detected Normal Not Detected [facility] ([place]) Comment on above: Order Comment: Order added by [email or web address] Performed By: #### C BC, CMP, GFR, DIFF, MORPH #### [place] [address] Influenza A Not Detected Normal Not Detected [facility] ([place]) Comment on above: Order Comment: Order added by [email or web address] Performed By: #### C BC, CMP, GFR, DIFF, MORPH #### [place] [id number] Influenza B Not Detected Normal Not Detected [facility] ([place]) Comment on above: Order Comment: Order added by [email or web address] Performed By: #### C BC, CMP, GFR, DIFF, MORPH #### [place] [address] Mycoplasma pneumoniae Not Detected Normal Not Detected [facility] ([place]) Comment on above: Order Comment: Order added by [email or web address] Performed By: #### C BC, CMP, GFR, DIFF, MORPH #### [place] [address] Parainfluenza 1 Not Detected Normal Not Detected [facility] ([place]) Comment on above: Order Comment: Order added by [email or web address] Performed By: #### C BC, CMP, GFR, DIFF, MORPH #### [place] [address] Parainfluenza 2 Not Detected Normal Not Detected [facility] ([place]) Comment on above: Order Comment: Order added by [email or web address] Performed By: #### C BC, CMP, GFR, DIFF, MORPH #### [place] [address] Parainfluenza 3 Not Detected Normal Not Detected [facility] ([place]) Comment on above: Order Comment: Order added by [email or web address] Performed By: #### C BC, CMP, GFR, DIFF, MORPH #### [place] [address] Parainfluenza 4 Not Detected Normal Not Detected [facility] ([place]) Comment on above: Order Comment: Order added by [email or web address] Performed By: #### C BC, CMP, GFR, DIFF, MORPH #### [place] [address] Respiratory Syncytial Virus Not Detected Normal Not Detected [facility] ([place]) Comment on above: Order Comment: Order added by [email or web address] Performed By: #### C BC, CMP, GFR, DIFF, MORPH #### [address] [address] Rhinovirus/Enterovirus Not Detected Normal Not Detected [facility] ([place]) Comment on above: Order Comment: Order added by [email or web address] Performed By: #### C BC, CMP, GFR, DIFF, MORPH #### [place] [address] RFLUon 08-23-2019 RFLU . MICRO - Microbiology [...] Locations *1: This test was performed at: [address], [address] [place] [address] ([place]) Comment on above: Performed By: #### C BC, CMP, GFR, DIFF, MORPH #### [address] [address] XR CHEST 1 VIEWon 08-23-2019 XR CHEST [...] PM Sign Date: 08/23/2019 7:23:50 PM Ordering Provider:[facility]) XR PELVIS 1 OR 2 [...] PM Sign Date: 08/23/2019 7:24:38 PM Ordering Provider:[facility]) Culture, urine Bacteria identified Cx Nom (U) Staphylococcus hominis hominis [facility] Work Phone: Bacteria identified Cx Nom (U) Escherichia coli [facility] Work Phone: Bacteria identified Cx Nom (U) Enterococcus faecalis [facility] Work Phone: Vital Signs Date Time Vital Sign Value Performing Clinician Facility 02-09-2025 13:18-0400 Body height 172.[address] Sheyla Mcgee MD Work Phone: [facility] 02-09-2025 13:18-0400 Body mass index (BMI) [Ratio] 22.8 kg/m2 Dr. Sheyla Mcgee MD Work Phone: [facility] 02-09-2025 13:18-0400 Body weight 68.[address] Sheyla Mcgee MD Work Phone: [facility] 09-26-2024 15:33-0400 Body temperature 97.8 [degF] Dr. Erica Richardson DO Work Phone: [facility] 09-26-2024 15:33-0400 Diastolic blood pressure 74 mm[Hg] Dr. Erica Richardson DO Work Phone: [facility] 09-26-2024 15:33-0400 Heart rate 67 /min Dr. Erica Richardson DO Work Phone: [facility] 09-26-2024 15:33-0400 Respiratory rate 15 /min Dr. Erica Richardson DO Work Phone: [facility] 09-26-2024 15:33-0400 SaO2% (BldA) [Mass fraction] 99 % Dr. Erica Richardson DO Work Phone: [facility] 09-26-2024 15:33-0400 Systolic blood pressure 138 mm[Hg] Dr. Erica Richardson DO Work Phone: [facility] 09-26-2024 13:17-0400 Body height 172.[address] Erica Richardson DO Work Phone: [facility] 09-26-2024 13:17-0400 Body mass index (BMI) [Ratio] 25.4 kg/m2 Dr. Erica Richardson DO Work Phone: [facility] 09-26-2024 13:17-0400 Body weight 75.[address] Erica Richardson DO Work Phone: [facility] 09-25-2024 15:00-0400 Body temperature 98.8 [degF] Dr. Erica Richardson DO Work Phone: [facility] 09-25-2024 15:00-0400 Diastolic blood pressure 72 mm[Hg] Dr. Erica Richardson DO Work Phone: [facility] 09-25-2024 15:00-0400 Heart rate 82 /min Dr. Erica Richardson DO Work Phone: [facility] 09-25-2024 15:00-0400 Respiratory rate 16 /min Dr. Erica Richardson DO Work Phone: [facility] 09-25-2024 15:00-0400 SaO2% (BldA) [Mass fraction] 94 % Dr. Erica Richardson DO Work Phone: [facility] 09-25-2024 15:00-0400 Systolic blood pressure 123 mm[Hg] Dr. Erica Richardson DO Work Phone: [facility] 09-25-2024 03:34-0400 Body mass index (BMI) [Ratio] 25.2 kg/m2 Dr. Erica Richardson DO Work Phone: [facility] 09-25-2024 03:34-0400 Body weight 75.[address] Erica Richardson DO Work Phone: [facility] 09-23-2024 09:30-0400 Body height 172.[address] Erica Richardson DO Work Phone: [facility] 09-22-2024 23:00-0400 Body temperature 98.1 [degF] Dr. Erica Richardson DO Work Phone: [facility] 09-22-2024 23:00-0400 Diastolic blood pressure 65 mm[Hg] Dr. Erica Richardson DO Work Phone: [facility] 09-22-2024 23:00-0400 Heart rate 70 /min Dr. Erica Richardson DO Work Phone: [facility] 09-22-2024 23:00-0400 Respiratory rate 16 /min Dr. Erica Richardson DO Work Phone: [facility] 09-22-2024 23:00-0400 SaO2% (BldA) [Mass fraction] 95 % Dr. Erica Richardson DO Work Phone: [facility] 09-22-2024 23:00-0400 Systolic blood pressure 134 mm[Hg] Dr. Erica Richardson DO Work Phone: [facility] 09-22-2024 22:00-0400 Inhaled oxygen flow rate 1 L/min Dr. Erica Richardson DO Work Phone: [facility] 09-22-2024 20:06-0400 Body height 167.[address] Erica Richardson DO Work Phone: [facility] 09-22-2024 20:06-0400 Body mass index (BMI) [Ratio] 28.8 kg/m2 Dr. Erica Richardson DO Work Phone: [facility] 09-22-2024 20:06-0400 Body weight 81.[address] Erica Richardson DO Work Phone: [facility] 07-04-2024 16:37-0400 Diastolic blood pressure 81 mm[Hg] Dr. Erica Richardson DO Work Phone: [facility] 07-04-2024 16:37-0400 Heart rate 77 /min Dr. Erica Richardson DO Work Phone: [facility] 07-04-2024 16:37-0400 Respiratory rate 16 /min Dr. Erica Richardson DO Work Phone: [facility] 07-04-2024 16:37-0400 SaO2% (BldA) [Mass fraction] 96 % Dr. Erica Richardson DO Work Phone: [facility] 07-04-2024 16:37-0400 Systolic blood pressure 167 mm[Hg] Dr. Erica Richardson DO Work Phone: [facility] 07-04-2024 12:57-0400 Body height 167.[address] Erica Richardson DO Work Phone: [facility] 07-04-2024 12:57-0400 Body mass index (BMI) [Ratio] 27.3 kg/m2 Dr. Erica Richardson DO Work Phone: [facility] 07-04-2024 12:57-0400 Body temperature 98 [degF] Dr. Erica Richardson DO Work Phone: [facility] 07-04-2024 12:57-0400 Body weight 76.[address] Erica Richardson DO Work Phone: [facility] 08-20-2023 17:53-0400 Body temperature 98 [degF] Dr. Erica Richardson Work Phone: [facility] 08-20-2023 17:53-0400 Diastolic blood pressure 80 mm[Hg] Dr. Erica Richardson Work Phone: [facility] 08-20-2023 17:53-0400 Heart rate 80 /min Dr. Erica Richardson Work Phone: [facility] 08-20-2023 17:53-0400 Respiratory rate 16 /min Dr. Erica Richardson Work Phone: [facility] 08-20-2023 17:53-0400 SaO2% (BldA) [Mass fraction] 97 % Dr. Erica Richardson Work Phone: [facility] 08-20-2023 17:53-0400 Systolic blood pressure 158 mm[Hg] Dr. Erica Richardson Work Phone: [facility] 08-20-2023 12:24-0400 Body height 165.[address] Erica Richardson Work Phone: [facility] 08-20-2023 12:24-0400 Body mass index (BMI) [Ratio] 27.2 kg/m2 Dr. Erica Richardson Work Phone: [facility] 08-20-2023 12:24-0400 Body weight 74.[address] Erica Richardson Work Phone: [facility] 05-21-2023 11:05-0500 Body temperature 98.4 [degF] Dr. Erica Richardson Work Phone: [facility] 05-21-2023 11:05-0500 Diastolic blood pressure 60 mm[Hg] Dr. Erica Richardson Work Phone: [facility] 05-21-2023 11:05-0500 Heart rate 61 /min Dr. Erica Richardson Work Phone: [facility] 05-21-2023 11:05-0500 Respiratory rate 18 /min Dr. Erica Richardson Work Phone: [facility] 05-21-2023 11:05-0500 SaO2% (BldA) [Mass fraction] 94 % Dr. Erica Richardson Work Phone: [facility] 05-21-2023 11:05-0500 Systolic blood pressure 125 mm[Hg] Dr. Erica Richardson Work Phone: [facility] 05-21-2023 06:00-0500 Body mass index (BMI) [Ratio] 26.6 kg/m2 Dr. Erica Richardson Work Phone: [facility] 05-21-2023 06:00-0500 Body weight 74.[address] Erica Richardson Work Phone: [facility] 05-19-2023 09:16-0500 Inhaled oxygen concentration 2 % Dr. Erica Richardson Work Phone: [facility] 05-19-2023 08:00-0500 Inhaled oxygen flow rate 2 L/min Dr. Erica Richardson Work Phone: [facility] 05-19-2023 03:16-0500 Body height 167.[address] Erica Richardson Work Phone: [facility] 05-19-2023 02:23-0500 Body temperature 98.7 [degF] Dr. Erica Richardson Work Phone: [facility] 05-19-2023 02:23-0500 Diastolic blood pressure 57 mm[Hg] Dr. Erica Richardson Work Phone: [facility] 05-19-2023 02:23-0500 Heart rate 87 /min Dr. Erica Richardson Work Phone: [facility] 05-19-2023 02:23-0500 Respiratory rate 16 /min Dr. Erica Richardson Work Phone: [facility] 05-19-2023 02:23-0500 SaO2% (BldA) [Mass fraction] 95 % Dr. Erica Richardson Work Phone: [facility] 05-19-2023 02:23-0500 Systolic blood pressure 99 mm[Hg] Dr. Erica Richardson Work Phone: [facility] 05-19-2023 01:17-0500 Inhaled oxygen flow rate 3 L/min Dr. Erica Richardson Work Phone: [facility] 05-18-2023 23:28-0500 Body height 167.[address] Erica Richardson Work Phone: [facility] 05-18-2023 23:28-0500 Body mass index (BMI) [Ratio] 25.9 kg/m2 Dr. Erica Richardson Work Phone: [facility] 05-18-2023 23:28-0500 Body weight [address] Erica Richardson Work Phone: [facility] 11-23-2022 13:00-0400 Body temperature 97.8 [degF] Dr. Erica Richardson Work Phone: [facility] 11-23-2022 13:00-0400 Diastolic blood pressure 70 mm[Hg] Dr. Erica Richardson Work Phone: [facility] 11-23-2022 13:00-0400 Heart rate 98 /min Dr. Erica Richardson Work Phone: [facility] 11-23-2022 13:00-0400 Respiratory rate 16 /min Dr. Erica Richardson Work Phone: [facility] 11-23-2022 13:00-0400 SaO2% (BldA) [Mass fraction] 94 % Dr. Erica Richardson Work Phone: [facility] 11-23-2022 13:00-0400 Systolic blood pressure 139 mm[Hg] Dr. Erica Richardson Work Phone: [facility] 11-23-2022 06:51-0400 Inhaled oxygen flow rate 2 L/min Dr. Erica Richardson Work Phone: [facility] 11-22-2022 18:25-0400 Body height 167.[address] Erica Richardson Work Phone: [facility] 11-22-2022 18:25-0400 Body mass index (BMI) [Ratio] 24.2 kg/m2 Dr. Erica Richardson Work Phone: [facility] 11-22-2022 18:25-0400 Body weight 68.[address] Erica Richardson Work Phone: [facility] 11-22-2022 17:49-0400 Body temperature 98 [degF] [facility] 11-22-2022 17:49-0400 Diastolic blood pressure 79 mm[Hg] [facility] 11-22-2022 17:49-0400 Heart rate 72 /min [facility] 11-22-2022 17:49-0400 Respiratory rate 18 /min [facility] 11-22-2022 17:49-0400 SaO2% (BldA) [Mass fraction] 93 % [facility] 11-22-2022 17:49-0400 Systolic blood pressure 151 mm[Hg] [facility] 11-22-2022 12:42-0400 Body height 167.64 cm [facility] 11-22-2022 12:42-0400 Body mass index (BMI) [Ratio] 24.2 kg/m2 [facility] 11-22-2022 12:42-0400 Body weight 68.03 kg [facility] 11-22-2022 11:47-0400 Body temperature 99.61 [degF] Eliel Raphaelluiza PROJECT DIRECTOR.WINDOW FRAMER Work Phone: [facility] 11-22-2022 11:47-0400 Body weight 68.04 kg [facility] PRO[employer] DIRECT[employer]ER Work Phone: [facility] 11-22-2022 11:47-0400 Diastolic blood pressure 64 mm[Hg] Eliel lBount PROJECT DIRECTOR.WINDOW FRAMER Work Phone: [facility] 11-22-2022 11:47-0400 Heart rate 85 /min Eliel Blount PROJECT DIRECTOR.WINDOW FRAMER Work Phone: [facility] 11-22-2022 11:47-0400 Respiratory rate 18 /min [facility] PROJECT DIRECTOR.[employer]OW [employer]ER Work Phone: [facility] 11-22-2022 11:47-0400 SaO2% (BldA) [Mass fraction] 93 % Elieljesus Blount PROJECT DIRECTOR.WINDOW FRAMER Work Phone: [facility] 11-22-2022 11:47-0400 Systolic blood pressure 110 mm[Hg] Eliel Blount PROJECT DIRECTOR.WINDOW FRAMER Work Phone: [facility] 07-02-2022 21:05-0400 Diastolic blood pressure 80 mm[Hg] Dr. Erica Richardson Work Phone: [facility] 07-02-2022 21:05-0400 Heart rate 79 /min Dr. Erica Richardson Work Phone: [facility] 07-02-2022 21:05-0400 Respiratory rate 16 /min Dr. Erica Richardson Work Phone: [facility] 07-02-2022 21:05-0400 SaO2% (BldA) [Mass fraction] 97 % Dr. Erica Richardson Work Phone: [facility] 07-02-2022 21:05-0400 Systolic blood pressure 130 mm[Hg] Dr. Erica Richardson Work Phone: [facility] 07-02-2022 16:14-0400 Body height 167.[address] Erica Richardson Work Phone: [facility] 07-02-2022 16:14-0400 Body mass index (BMI) [Ratio] 21.7 kg/m2 Dr. Erica Richardson Work Phone: [facility] 07-02-2022 16:14-0400 Body temperature 97.3 [degF] Dr. Erica Richardson Work Phone: [facility] 07-02-2022 16:14-0400 Body weight 61.[address] Erica Richardson Work Phone: [facility] 03-09-2022 08:51-0500 Body height 167.[address] Erica Richardson Work Phone: [facility] 01-10-2022 13:39-0400 Diastolic blood pressure 81 mm[Hg] Dr. Erica Richardson Work Phone: [facility] Work Phone: 01-10-2022 13:39-0400 Heart rate 83 /min Dr. Erica Richardson Work Phone: [facility] Work Phone: 01-10-2022 13:39-0400 Respiratory rate 19 /min Dr. Erica Richardson Work Phone: [facility] Work Phone: 01-10-2022 13:39-0400 SaO2% (BldA) [Mass fraction] 95 % Dr. Erica Richardson Work Phone: [facility] Work Phone: 01-10-2022 13:39-0400 Systolic blood pressure 149 mm[Hg] Dr. Erica Richardson Work Phone: [facility] Work Phone: 01-10-2022 11:44-0400 Body height 167.[address] Erica Richardson Work Phone: [facility] Work Phone: 01-10-2022 11:44-0400 Body mass index (BMI) [Ratio] 22.7 kg/m2 Dr. Erica Richardson Work Phone: [facility] Work Phone: 01-10-2022 11:44-0400 Body temperature 98.1 [degF] Dr. Erica Richardson Work Phone: [facility] Work Phone: 01-10-2022 11:44-0400 Body weight 63.[address] Erica Richardson Work Phone: [facility] Work Phone: 01-09-2022 13:26-0400 Body height 167.6 cm All Tsang MD Work Phone: [facility] 01-09-2022 13:26-0400 Body weight 56.7 kg All Tsang MD Work Phone: [facility] 01-09-2022 13:26-0400 Diastolic blood pressure 64 mm[Hg] All Tsang MD Work Phone: [facility] 01-09-2022 13:26-0400 Heart rate 66 /min All Tsang MD Work Phone: [facility] 01-09-2022 13:26-0400 SaO2% (BldA) [Mass fraction] 97 % All Tsang MD Work Phone: [facility] 01-09-2022 13:26-0400 Systolic blood pressure 110 mm[Hg] All Tsang MD Work Phone: [facility] 11-02-2021 13:06-0400 Body height 167.6 cm Acute 359 Work Phone: [facility] 11-02-2021 13:06-0400 Body weight 63.96 kg [facility] Work Phone: [facility] 11-02-2021 13:06-0400 Diastolic blood pressure 74 mm[Hg] [facility] Work Phone: [facility] 11-02-2021 13:06-0400 Heart rate 86 /min [facility] Work Phone: [facility] 11-02-2021 13:06-0400 Respiratory rate 20 /min [facility] Work Phone: [facility] 11-02-2021 13:06-0400 SaO2% (BldA) [Mass fraction] 95 % [facility] Work Phone: [facility] 11-02-2021 13:06-0400 Systolic blood pressure 112 mm[Hg] [facility] Work Phone: [facility] 10-07-2021 01:00-0400 Diastolic blood pressure 81 mm[Hg] Dr. Erica Richardson Work Phone: [facility] Work Phone: 10-07-2021 01:00-0400 Heart rate 85 /min Dr. Erica Richardson Work Phone: [facility] Work Phone: 10-07-2021 01:00-0400 Inhaled oxygen flow rate 2 L/min Dr. Erica Richardson Work Phone: [facility] Work Phone: 10-07-2021 01:00-0400 Respiratory rate 14 /min Dr. Erica Richardson Work Phone: [facility] Work Phone: 10-07-2021 01:00-0400 SaO2% (BldA) [Mass fraction] 100 % Dr. Erica Richardson Work Phone: [facility] Work Phone: 10-07-2021 01:00-0400 Systolic blood pressure 138 mm[Hg] Dr. Erica Richardson Work Phone: [facility] Work Phone: 10-06-2021 21:19-0400 Body height 167.[address] Erica Richardson Work Phone: [facility] Work Phone: 10-06-2021 21:19-0400 Body mass index (BMI) [Ratio] 20.9 kg/m2 Dr. Erica Richardson Work Phone: [facility] Work Phone: 10-06-2021 21:19-0400 Body temperature 96.9 [degF] Dr. Erica Richardson Work Phone: [facility] Work Phone: 10-06-2021 21:19-0400 Body weight 58.[address] Erica Richardson Work Phone: [facility] Work Phone: 08-07-2021 10:54-0400 Body mass index (BMI) [Ratio] 22.9 kg/m2 Dr. Erica Richardson Work Phone: [facility] Work Phone: 08-07-2021 10:54-0400 Body temperature 97.3 [degF] Dr. Erica Richardson Work Phone: [facility] Work Phone: 08-07-2021 10:54-0400 Body weight 62.[address] Erica Richardson Work Phone: [facility] Work Phone: 08-07-2021 10:54-0400 Diastolic blood pressure 76 mm[Hg] Dr. Erica Richardson Work Phone: [facility] Work Phone: 08-07-2021 10:54-0400 Heart rate 91 /min Dr. Erica Richardson Work Phone: [facility] Work Phone: 08-07-2021 10:54-0400 Respiratory rate 18 /min Dr. Erica Richardson Work Phone: [facility] Work Phone: 08-07-2021 10:54-0400 SaO2% (BldA) [Mass fraction] 97 % Dr. Erica Richardson Work Phone: [facility] Work Phone: 08-07-2021 10:54-0400 Systolic blood pressure 120 mm[Hg] Dr. Erica Richardson Work Phone: [facility] Work Phone: 08-07-2021 10:54-0400 Body height 165.[address] Erica Richardson Work Phone: [facility] Work Phone: 08-07-2021 10:54-0400 Body mass index (BMI) [Ratio] 22.9 kg/m2 Dr. Erica Richardson Work Phone: [facility] Work Phone: 08-07-2021 10:54-0400 Body temperature 97.3 [degF] Dr. Erica Richardson Work Phone: [facility] Work Phone: 08-07-2021 10:54-0400 Body weight 62.[address] Erica Richardson Work Phone: [facility] Work Phone: 08-07-2021 10:54-0400 Diastolic blood pressure 76 mm[Hg] Dr. Erica Richardson Work Phone: [facility] Work Phone: 08-07-2021 10:54-0400 Heart rate 91 /min Dr. Erica Richardson Work Phone: [facility] Work Phone: 08-07-2021 10:54-0400 Respiratory rate 18 /min Dr. Erica Richardson Work Phone: [facility] Work Phone: 08-07-2021 10:54-0400 SaO2% (BldA) [Mass fraction] 97 % Dr. Erica Richardson Work Phone: [facility] Work Phone: 08-07-2021 10:54-0400 Systolic blood pressure 120 mm[Hg] Dr. Erica Richardson Work Phone: [facility] Work Phone: 07-12-2021 11:59-0400 Body temperature 100.29 [degF] Nicho Johnson MD Work Phone: [facility] 07-12-2021 11:59-0400 Body weight 60.6 kg Nicho Johnson MD Work Phone: [facility] 07-12-2021 11:59-0400 Diastolic blood pressure 92 mm[Hg] Nicho Johnson MD Work Phone: [facility] 07-12-2021 11:59-0400 Heart rate 97 /min Nicho Johnson MD Work Phone: [facility] 07-12-2021 11:59-0400 Respiratory rate 21 /min Nicho Johnson MD Work Phone: [facility] 07-12-2021 11:59-0400 SaO2% (BldA) [Mass fraction] 98 % Nicho Johnson MD Work Phone: [facility] 07-12-2021 11:59-0400 Systolic blood pressure 152 mm[Hg] Nicho Johnson MD Work Phone: [facility] 06-11-2021 15:56-0500 Diastolic blood pressure 83 mm[Hg] Dr. Erica Richardson Work Phone: [facility] Work Phone: 06-11-2021 15:56-0500 Heart rate 89 /min Dr. Erica Richardson Work Phone: [facility] Work Phone: 06-11-2021 15:56-0500 Respiratory rate 16 /min Dr. Erica Richardson Work Phone: [facility] Work Phone: 06-11-2021 15:56-0500 SaO2% (BldA) [Mass fraction] 97 % Dr. Erica Richardson Work Phone: [facility] Work Phone: 06-11-2021 15:56-0500 Systolic blood pressure 149 mm[Hg] Dr. Erica Richardson Work Phone: [facility] Work Phone: 06-11-2021 14:56-0500 Diastolic blood pressure 83 mm[Hg] Dr. Erica Richardson Work Phone: [facility] Work Phone: 06-11-2021 14:56-0500 Heart rate 89 /min Dr. Erica Richardson Work Phone: [facility] Work Phone: 06-11-2021 14:56-0500 Respiratory rate 16 /min Dr. Erica Richardson Work Phone: [facility] Work Phone: 06-11-2021 14:56-0500 SaO2% (BldA) [Mass fraction] 97 % Dr. Erica Richardson Work Phone: [facility] Work Phone: 06-11-2021 14:56-0500 Systolic blood pressure 149 mm[Hg] Dr. Erica Richardson Work Phone: [facility] Work Phone: 06-11-2021 11:01-0500 Body mass index (BMI) [Ratio] 23.5 kg/m2 Dr. Erica Richardson Work Phone: [facility] Work Phone: 06-11-2021 11:01-0500 Body temperature 98.3 [degF] Dr. Erica Richardson Work Phone: [facility] Work Phone: 06-11-2021 11:01-0500 Body weight 62.[address] Erica Richardson Work Phone: [facility] Work Phone: 06-11-2021 10:01-0500 Body mass index (BMI) [Ratio] 23.5 kg/m2 Dr. Erica Richardson Work Phone: [facility] Work Phone: 06-11-2021 10:01-0500 Body temperature 98.3 [degF] Dr. Erica Richardson Work Phone: [facility] Work Phone: 06-11-2021 10:01-0500 Body weight 62.[address] Erica Richardson Work Phone: [facility] Work Phone: 05-21-2021 13:39-0500 Body mass index (BMI) [Ratio] 23.7 kg/m2 Dr. Erica Richardson Work Phone: [facility] Work Phone: 05-21-2021 13:39-0500 Body temperature 98 [degF] Dr. Erica Richardson Work Phone: [facility] Work Phone: 05-21-2021 13:39-0500 Body weight 66.[address] Erica Richardson Work Phone: [facility] Work Phone: 05-21-2021 13:39-0500 Diastolic blood pressure 69 mm[Hg] Dr. Erica Richardson Work Phone: [facility] Work Phone: 05-21-2021 13:39-0500 Heart rate 87 /min Dr. Erica Richardson Work Phone: [facility] Work Phone: 05-21-2021 13:39-0500 Respiratory rate 18 /min Dr. Erica Richardson Work Phone: [facility] Work Phone: 05-21-2021 13:39-0500 SaO2% (BldA) [Mass fraction] 100 % Dr. Erica Richardson Work Phone: [facility] Work Phone: 05-21-2021 13:39-0500 Systolic blood pressure 150 mm[Hg] Dr. Erica Richardson Work Phone: [facility] Work Phone: 04-17-2020 11:00-0500 BP Diastolic 91 mm[Hg] [place], [place] 04-17-2020 11:00-0500 BP Systolic 158 mm[Hg] [place] 04-17-2020 11:00-0500 Pulse (Heart Rate) 87 /min [place], [place] 04-17-2020 11:00-0500 Pulse Oximetry 95 % [place] 04-17-2020 11:00-0500 Respiratory Rate 18 /min [place] 04-17-2020 08:00-0500 Body Temperature 98.4 [degF] Solomon Blecker [facility] [place] Encounters Encounter Date Encounter Type Care Provider Facility Start: 02-26-2025 End: 02-26-2025 ambulatory SELF Facility:[facility] Start: 02-09-2025 End: 02-09-[address] Cali Ariza MD -[facility] Work Phone: Start: 02-09-2025 End: 02-09-2025 ambulatory Cali Ariza Facility:[facility] Start: 01-28-2025 End: 02-01-[address] ERICA RICHARDSON DO Facility:[facility] Start: 01-28-2025 End: 02-01-[address] ERICA RICHARDSNO DO [facility] Start: 01-16-2025 End: 01-16-[address] Erica Richardson DO Work Phone: -[facility] Start: 01-16-2025 End: 01-16-2025 Patient encounter procedure Ray Eshenaur PA-C -[facility] Work Phone: Start: 01-16-2025 End: 01-16-2025 Ray Eshenaur PA-C -[facility] Work Phone: Start: 01-16-2025 End: 01-16-2025 ambulatory Ray Eshenaur PA Facility:[facility] Start: 11-27-2024 End: 11-27-2024 ambulatory SELF Facility:[facility] Start: 11-26-2024 End: 11-26-[address] Erica Richardson DO Work Phone: -[facility]atory [facility] Start: 11-26-2024 End: 11-26-[address] Erica Richardson DO -[facility] Work Phone: Start: 11-26-2024 End: 11-26-2024 Dr. Erica Richardson DO -[facility]atory [facility] Work Phone: Start: 11-25-2024 End: 11-26-[address] Erica Richardson DO Work Phone: -[facility]atory [facility] Start: 11-25-2024 End: 11-25-[address] Erica Richardson DO -[facility]atory [facility] Work Phone: Start: 11-25-2024 End: 11-25-2024 Dr. Erica Richardson DO -Laboratory [facility] Work Phone: Start: 11-25-2024 End: 11-25-2024 ambulatory Erica Richardson Facility:[facility] Start: 11-13-2024 End: 11-13-[address] Erica Richardson DO Work Phone: -[facility]atory [facility] Start: 11-13-2024 End: 11-13-[address] Erica Richardson DO -[facility]atory [facility] Work Phone: Start: 11-13-2024 End: 11-13-2024 Dr. Erica Richardson DO -Laboratory [facility] Work Phone: Start: 11-13-2024 End: 11-13-2024 ambulatory Erica Richardson Facility:[facility] Start: 10-26-2024 ambulatory Efewcarl SMITH Fa cility:[facility] Start: 10-26-2024 Registered Referred Sheyla Lunsford Start: 10-26-2024 Sheyla Lunsford Start: 10-20-2024 Non-patient / Non-visit Dr. Shireen he MD -[facility] Work Phone: Start: 10-19-2024 ambulatory Efdorian Mcgee OLS Fa cility:[facility] Start: 10-19-2024 Registered Referred Sheyla Lunsford Start: 10-19[facility] Start: 10-12-2024 End: 10-12-2024 Patient encounter procedure Aiden LUIS -[facility] Work Phone: Start: 10-12-2024 End: 10-12-[address] Erica Richardson DO Work Phone: [facility] Start: 10-12-2024 Registered Referred Sheyla Lunsford Start: 10-12-2024 End: 10-12-2024 Aiden Mcgrath NP-C -[facility] Work Phone: Start: 10-05-2024 ambulatory Sheyla SMITH Fa cility:[facility] Start: 10-05-2024 Registered Referred Sheyla Lunsford Start: 10-05-2024 Sheyla Lunsford Start: 10-01-2024 End: 10-01-[address] Erica Richardson DO Work Phone: [facility] Start: 10-01-2024 End: 10-01-2024 Patient encounter procedure Aiden Mcgrath IRONWORKER APPRENTICE-[facility] Work Phone: Start: 10-01-2024 End: 10-01-2024 Aiden Mcgrath NP-C -[facility] Work Phone: Start: 09-30-2024 End: 09-30-[address] Erica Richardson DO Work Phone: [facility] Start: 09-30-2024 End: 09-30-2024 Patient encounter procedure Aiden Mcgrath IRONWORKER APPRENTICE-C -[facility] Work Phone: Start: 09-30-2024 End: 09-30-2024 Aiden Mcgrath NP-C -[facility] Work Phone: Start: 09-29-2024 End: 09-29-[address] Erica Richardson DO Work Phone: [facility] Start: 09-29-2024 End: 09-29-[address] Sheyla Mcgee MD -[facility] Work Phone: Start: 09-29-2024 End: 09-29-2024 Dr. Sheyla Mcgee MD -[facility] Work Phone: Start: 09-28-2024 End: 09-28-2024 Patient encounter procedure Aiden Mcgrath IRONWORKER APPRENTICE- -[facility] Work Phone: Start: 09-28-2024 End: 09-28-[address] Erica Richardson DO Work Phone: -[facility] Start: 09-28-2024 Registered Referred Sheyla Mcgee MD -[facility] Start: 09-28-2024 End: 09-28-2024 [facility] Mcgr[facility] Work Phone: Start: 09-26-2024 End: 09-26-2024 Dr. Franky Olivas DO -Emergency Departmen t Work Phone: Start: 09-26-2024 End: 09-26-2024 Emergency department patient visit Dr. Erica Richardson DO Work Phone: -Emergency Department Work Phone: Start: 09-25-2024 Non-patient / Non-visit Dr. Froy anglin DO -[facility] Work Phone: Start: 09-25-2024 Dr. Froy Velázquez DO -[facility] Work Phone: Start: 09-24-2024 Non-patient / Non-visit Dr. Froy Talavera linnette DO -[facility] Work Phone: Start: 09-24-2024 Dr. Froy Velázquez DO -[facility] Work Phone: Start: 09-23-2024 Non-patient / Non-visit Dr. Froy Talavera linnette DO -[facility] Work Phone: Start: 09-23-2024 Dr. Froy Velázquez DO -[facility] Work Phone: Start: 09-22-2024 ambulatory Froy Velázquez Facility:[facility] Start: 09-22-2024 End: 09-25-2024 Evaluation and management of inpatient Dr. Froy Velázquez DO -Progressive Care Unit Work Phone: Start: 09-22-2024 End: 09-25-2024 Dr. Froy Velázquez DO -Progressive Care Un it Work Phone: Start: 09-11-2024 End: 09-11-[address] Erica Richardson DO Work Phone: [facility] Work Phone: Start: 09-11-2024 End: 09-11-[address] Erica Richardson DO -Laboratory [place] Work Phone: Start: 09-11-2024 End: 09-11-2024 [facility] Start: 08-21-2024 End: 08-21-[address] Erica Richardson DO Work Phone: [facility] Work Phone: Start: 08-21-2024 End: 08-21-[address] Erica Richardson DO -Home Health Lab Start: 08-21-2024 End: 08-21-2024 ambulatory Erica Richardson Facility:[facility] Start: 08-05-2024 End: 08-05-[address] Erica Richardson DO -Laboratory, Spec[facility] Work Phone: Start: 08-05-2024 End: 08-05-2024 [facility] Start: 07-04-2024 End: 07-04-2024 Emergency department patient visit Dr. Erica Richardson DO Work Phone: -Emergency Department Work Phone: Start: 06-04-2024 End: 06-04-[address] Erica Richardson DO -Radiology, [place] Work Phone: Start: 06-04-2024 End: 06-04-2024 ambulatory Erica Richardson Facility:[facility] Start: 05-27-2024 End: 05-27-[address] Erica Richardson DO -Laboratory, [place] Thomas [facility] Start: 05-27-2024 End: 05-27-2024 [facility] Start: 04-24-2024 End: 04-24-[address] Erica Richardson DO -Laboratory, Spec[facility] Work Phone: Start: 04-24-2024 End: 04-24-2024 [facility]ulatory [facility] Start: 03-02-2024 End: 03-02-2024 Emergency department patient visit Cheikh Ybarra Facility:[facility] Start: 11-04-2023 End: 11-04-2023 ambulatory Lab/[facility] Work Phone: Hematology/Oncology Comment on above: History of breast ca ncer (Primary Dx) Start: 08-20-2023 End: 08-20-2023 Emergency department patient visit Dr. Erica Richardson Work Phone: [facility]-Emergency Department Work Phone: Start: 08-05-2023 End: 08-05-2023 ambulatory Lab/[facility] Work Phone: Hematology/Oncology Comment on above: History of breast ca ncer (Primary Dx) Start: 05-21-2023 Non-patient / Non-visit Dr. Anny Richardson Work Phone: [facility] Work Phone: Start: 05-20-2023 Non-patient / Non-visit Dr. Anny Richardson Work Phone: [facility] Work Phone: Start: 05-19-2023 End: 05-21-2023 Evaluation and management of inpatient [facility] Work [facility]: Start: 05-19-2023 Non-patient / Non-visit Dr. Anny Richardson Work Phone: [facility] Work Phone: Start: 11-23-2022 Telephone encounter Jovani rico APRN.WINDOW FRAMER Work Phone: [facility] Comment on above: Results Start: 11-22-2022 Non-patient / Non-visit Dr. Anny Richardson Work Phone: [facility] Work Phone: Start: 11-22-2022 End: 11-23-2022 Evaluation and management of inpatient [facility] 3 Work Phone: Start: 11-22-2022 End: 11-23-[address] Erica Richardosn Work Phone: [facility] Work Phone: Start: 11-22-2022 End: 11-22-2022 Subsequent hospital visit by physician Xr [facility] Work Phone: Radiology Comment on above: Acute cough [R05.1] Start: 11-22-2022 End: 11-22-2022 Patient encounter procedure Eliel Blount APRN.WINDOW FRAMER Work Phone: [facility] Comment on above: Acute cough (Primary Dx); SOB (shortness of breath); Suspected COVID-19 virus infection Start: 11-14-2022 End: 11-14-2022 Patient encounter procedure [facility]-Berenice Stuart [facility] Start: 09-13-2022 End: 09-13-[address] Erica Richardson Work Phone: [facility] Work Phone: Start: 09-13-2022 End: 09-13-[address] Erica Richardson Work Phone: [facility]-LaboratoryBerenice [facility] Start: 08-10-2022 End: 08-10-2022 ambulatory Lab/[facility] Work Phone: Hematology/Oncology Comment on above: Malignant neoplasm o f left breast in female, estrogen receptor positive, unspecified site of breast (HCC) (Primary Dx) Start: 07-13-2022 End: 07-13-2022 ambulatory Lab/[facility] Work Phone: Hematology/Oncology Comment on above: Malignant neoplasm o f left breast in female, estrogen receptor positive, unspecified site of breast (HCC) (Primary Dx) Start: 07-02-2022 End: 07-02-2022 Emergency department patient visit Dr. Erica Richardson Work Phone: [facility]-Emergency Department Start: 06-26-2022 End: 06-26-[address] Erica Richardson Work Phone: [facility] Work Phone: Start: 06-26-2022 End: 06-26-[address] Erica Richardson Work Phone: [facility] Start: 06-15-2022 End: 06-15-2022 ambulatory Lab/[facility] Work Phone: Hematology/Oncology Comment on above: Malignant neoplasm o f left breast in female, estrogen receptor positive, unspecified site of breast (HCC) (Primary Dx) Start: 06-07-2022 Non-patient / Non-visit Dr. Anny Richardson Work Phone: [facility] Start: 06-07-2022 End: 06-07-[address] Erica Richardson Work Phone: [facility] Work Phone: Start: 06-07-2022 End: 06-07-[address] Erica Richardson Work Phone: [facility]-Cardiovascular Services Start: 04-25-2022 End: 04-25-2022 ambulatory Lab/[facility] Work Phone: Hematology/Oncology Comment on above: Malignant neoplasm o f left breast in female, estrogen receptor positive, unspecified site of breast (HCC) (Primary Dx) Start: 03-28-2022 End: 03-28-2022 ambulatory Lab/[facility] Work Phone: Hematology/Oncology Comment on above: Malignant neoplasm o f left breast in female, estrogen receptor positive, unspecified site of breast (HCC) (Primary Dx) Start: 03-06-2022 End: 03-06-[address] Erica Richardson Work Phone: [facility] Work Phone: Start: 03-06-2022 End: 03-06-[address] Erica Richardson Work Phone: [facility] Start: 03-06-[address] Erica mejia Work Phone: [facility] Start: 03-03-2022 End: 03-03-[address] Erica Richardson Work Phone: [facility] Start: 02-27-2022 End: 02-27-[address] Erica Richardson Work Phone: [facility] Work Phone: Start: 02-27-2022 End: 02-27-[address] Erica Richardson Work Phone: [facility] Start: 02-27-[address] Erica mejia Work Phone: [facility] Start: 02-20-2022 End: 02-20-[address] Erica Richardson Work Phone: [facility] Work Phone: Start: 02-20-2022 End: 02-20-[address] Erica Richardson Work Phone: [facility] Start: 02-20-2022 Registered Referred [facility] Start: 02-13-2022 End: 02-13-2022 ambulatory [facility] Work Phone: Start: 02-13-2022 End: 02-13-2022 Departed Referred [facility] Start: 02-13-[address] Erica mejia Work Phone: [facility] Start: 02-06-2022 End: 02-06-[address] Erica Richardson Work Phone: [facility] Work Phone: Start: 02-06-2022 End: 02-06-[address] Erica Richardson Work Phone: [facility] Start: 02-06-[address] Erica mejia Work Phone: [facility] Start: 01-30-2022 End: 01-30-[address] Erica Richardson Work Phone: [facility] Work Phone: Start: 01-30-2022 End: 01-30-[address] Erica Richardson Work Phone: [facility] Start: 01-30-[address] Erica mejia Work Phone: [facility] Start: 01-22-2022 End: 01-22-[address] Erica Richardson Work Phone: [facility] Work Phone: Start: 01-22-2022 End: 01-22-[address] Erica Richardson Work Phone: [facility] Start: 01-22-[address] Erica mejia Work Phone: [facility] Start: 01-16-2022 End: 01-16-[address] Erica Richardson Work Phone: [facility] Work Phone: Start: 01-16-2022 End: 01-16-[address] Erica Richardson Work Phone: [facility] Start: 01-16-[address] Erica mejia Work Phone: [facility] Start: 01-10-2022 End: 01-10-2022 Emergency department patient visit Dr. Erica Richardson Work Phone: [facility]-Emergency Department Start: 01-09-2022 End: 01-09-2022 Patient encounter procedure All Tsang MD Work Phone: [facility] Comment on above: SDH (subdural hemato ma) (Primary Dx); Cerebral hemorrhage (HCC) Start: 01-09-2022 End: 01-09-2022 ambulatory ERICA RICHARDSON Facility:[facility] Start: 01-09-2022 End: 01-09-[address] Erica Richardson Work Phone: [facility] Start: 01-09-[address] Erica mejia Work Phone: [facility] Start: 01-04-2022 End: 01-04-2022 ambulatory Lab/[facility] Work Phone: Hematology/Oncology Comment on above: Malignant neoplasm o f left breast in female, estrogen receptor positive, unspecified site of breast (HCC) (Primary Dx) Start: 01-04-2022 End: 01-04-2022 Subsequent hospital visit by physician [facility] (I-Stat/1.5t) Work Phone: Radiology Comment on above: SDH (subdural hemato ma) (HCC) [S06.5X9A] Start: 01-03-2022 Telephone encounter Avni stephenson DO Work Phone: Hematology/Oncology Comment on above: Appointment Start: 01-02-2022 End: 01-02-[address] Erica Richardson Work Phone: [facility] Work Phone: Start: 01-02-2022 End: 01-02-[address] Erica Richardson Work Phone: [facility] Start: 01-02-[address] Erica mejia Work Phone: [facility] Start: 12-26-2021 End: 12-26-[address] Erica Richardson Work Phone: [facility] Work Phone: Start: 12-26-2021 End: 12-26-[address] Erica Richardson Work Phone: [facility] Start: 12-26-[address] Erica mejia Work Phone: [facility] Start: 12-20-2021 End: 12-20-[address] Erica Richardson Work Phone: [facility] Work Phone: Start: 12-20-2021 End: 12-20-[address] Erica Richardson Work Phone: [facility] Start: 12-20-[address] Erica mejia Work Phone: [facility] Start: 12-18-2021 End: 12-18-[address] Erica Richardson Work Phone: [facility] Work Phone: Start: 12-18-2021 End: 12-18-[address] Erica Richardson Work Phone: [facility] Start: 12-18-[address] Erica mejia Work Phone: [facility] Start: 12-12-2021 End: 12-12-[address] Erica Richardson Work Phone: [facility] Work Phone: Start: 12-12-2021 End: 12-12-[address] Erica Richardson Work Phone: [facility] Start: 12-12-[address] Erica mejia Work Phone: [facility] Start: 12-05-2021 End: 12-05-[address] Erica Richardson Work Phone: [facility] Work Phone: Start: 12-05-2021 End: 12-05-[address] Erica Richardson Work Phone: [facility] Start: 12-05-[address] Erica mejia Work Phone: [facility] Start: 12-03-2021 End: 12-03-[address] Erica Richardson Work Phone: [facility] Start: 12-01-2021 End: 12-01-[address] Erica Richardson Work Phone: [facility] Work Phone: Start: 12-01-2021 End: 12-01-[address] Erica Richardson Work Phone: [facility] Start: 12-01-[address] Erica mejia Work Phone: [facility] Start: 11-28-2021 End: 11-28-[address] Erica Richardson Work Phone: [facility] Work Phone: Start: 11-28-2021 End: 11-28-[address] Erica Richardson Work Phone: [facility] Start: 11-28-[address] Erica mejia Work Phone: [facility] Start: 11-21-2021 End: 11-21-[address] Erica Richardson Work Phone: [facility] Work Phone: Start: 11-21-2021 End: 11-21-[address] Erica Richardson Work Phone: [facility] Start: 11-21-[address] Erica mejia Work Phone: [facility] Start: 11-14-2021 End: 11-14-[address] Erica Richardson Work Phone: [facility] Start: 11-14-[address] Erica mejia Work Phone: [facility] Start: 11-09-2021 End: 11-09-[address] Erica Richardson Work Phone: [facility] Start: 11-09-[address] Erica mejia Work Phone: [facility] Start: 11-07-2021 End: 11-07-[address] Erica Richardson Work Phone: [facility] Start: 11-03-2021 End: 11-03-2021 ambulatory ERICA A MALYS Facility:[facility] Start: 11-02-2021 End: 11-02-2021 ambulatory ERICA A MALYS Facility:[facility] Start: 11-02-2021 End: 11-02-2021 Nursing evaluation of patient and report [facility] Work Phone: [facility] Comment on above: Closed fracture of m ultiple ribs with flail chest with routine healing, subsequent encounter (Primary Dx) Start: 11-02-2021 End: 11-02-2021 Subsequent hospital visit by physician Xr [facility] Comment on above: Closed fracture of m ultiple ribs of left side, initial encounter [S22.42XA] Start: 10-31-2021 End: 10-31-[address] Erica Richardson Work Phone: [facility] Start: 10-31-[address] Erica mejia Work Phone: [facility] Start: 10-30-2021 End: 10-30-2021 Subsequent hospital visit by physician [facility] Work Phone: Cat Scan Comment on above: SDH (subdural hemato ma) (HCC) [S06.5X9A] Start: 10-27-2021 End: 10-27-[address] Erica Richardson Work Phone: [facility] Start: 10-25-2021 End: 10-25-[address] Erica Richardson Work Phone: [facility] Start: 10-24-2021 End: 10-24-[address] Erica Richardson Work Phone: [facility] Start: 10-24-[address] Erica mejia Work Phone: [facility] Start: 10-20-2021 Telephone encounter Sherice espino APRN.CNP Work Phone: [facility] Comment on above: Appointment Start: 10-12-2021 Telephone encounter Eugene Santos MD Work Phone: [facility] Comment on above: Patient Update Start: 10-11-2021 Orders Only Yolie braswell PA-C Work Phone: [facility] Comment on above: SDH (subdural hemato ma) (HCC) (Primary Dx) Start: 10-07-2021 End: 10-17-2021 Evaluation and management of inpatient ERICA WILCOXHATTIE Facility:[facility] Start: 10-06-2021 End: 10-07-2021 Emergency department patient visit Dr. Erica Richardson Work Phone: [facility]-Emergency Department Start: 10-03-2021 End: 10-03-2021 ambulatory [facility] Work Phone: Hematology/Oncology Comment on above: Malignant neoplasm o f left breast in female, estrogen receptor positive, unspecified site of breast (HCC) (Primary Dx) Start: 08-29-2021 End: 08-29-2021 ambulatory [facility] Work Phone: Hematology/Oncology Comment on above: Malignant neoplasm o f left breast in female, estrogen receptor positive, unspecified site of breast (HCC) (Primary Dx) Start: 08-10-2021 End: 08-10-[address] Erica Richardson Work Phone: [facility]-Outpatient Bone Densitometry Start: 08-07-2021 End: 08-07-[address] Erica Richardson Work Phone: [facility] Start: 08-01-2021 End: 08-01-2021 ambulatory [facility] Work Phone: Hematology/Oncology Comment on above: Malignant neoplasm o f left breast in female, estrogen receptor positive, unspecified site of breast (HCC) (Primary Dx) Start: 07-28-2021 End: 07-28-[address] Erica Richardson Work Phone: [facility]-Medical Out Start: 07-12-2021 End: 07-12-2021 Patient encounter procedure Nicho Johnson MD Work Phone: [facility] Comment on above: Otalgia, right (Prim neel Dx); Vertigo; URI, acute Start: 06-11-2021 End: 06-11-2021 Emergency department patient visit Dr. Erica Richardson Work Phone: [facility]-Emergency Department Start: 05-21-2021 End: 05-21-2021 Emergency department patient visit Dr. Erica Richardson Work Phone: [facility]-Emergency Department Start: 03-17-2021 End: 03-17-2021 Subsequent hospital visit by physician Xr [facility] Work Phone: Radiology Comment on above: Injury of left upper arm, subsequent encounter [S49.92XD] Start: 04-16-2020 End: 04-17-2020 Evaluation and management of inpatient Solomon Ashlie Tenorio Work Phone: [facility] T[facility] Comment on above: Traumatic subdural h ematoma with loss of consciousness of 30 minutes or less, subsequent encounter (Primary Dx) Start: 06-13-2018 ambulatory UNKNOWN PROVIDER [facility] Procedures Date Procedure Procedure Detail Performing Clinician Start: 01-16-2025 CT of upper limb wit hout contrast Dr. Erica Richardson DO Work Phone: Start: 11-25-[address] Erica Richardson DO Work Phone: Start: 11-13-2024 Urine microscopy: red cells Dr. Erica Richardson DO Work Phone: Start: 11-13-2024 Urnls dip stick/tabl et reagent auto microscopy Dr. Erica Richardson DO Work Phone: Start: 10-26-2024 Mean corpuscular hem oglobin concentration determination Dr. Erica Richardson DO Work Phone: Start: 10-26-[address] Anny Richardson DO Work Phone: Start: 10-26-2024 Nucleated red blood cell count procedure Dr. Erica Richardson DO Work Phone: Start: 10-26-2024 Platelet mean volume determination Dr. Erica Richardson DO Work Phone: Start: 10-19-2024 Mean corpuscular hem oglobin concentration determination Dr. Erica Richardson DO Work Phone: Start: 10-19-[address] Anny Richardson DO Work Phone: Start: 10-19-2024 Nucleated red blood cell count procedure Dr. Erica Richardson DO Work Phone: Start: 10-19-2024 Platelet mean volume determination Dr. Erica Richardson DO Work Phone: Start: 10-12-2024 Mean corpuscular hem oglobin concentration determination Dr. Erica Richardson DO Work Phone: Start: 10-12-[address] Anny Richardson DO Work Phone: Start: 10-12-2024 Nucleated red blood cell count procedure Dr. Erica Richardson DO Work Phone: Start: 10-12-2024 Platelet mean volume determination Dr. Erica Richardson DO Work Phone: Start: 10-05-2024 Mean corpuscular hem oglobin concentration determination Dr. Erica Richardson DO Work Phone: Start: 10-05-[address] Anny Richardson DO Work Phone: Start: 10-05-2024 Nucleated red blood cell count procedure Dr. Erica Richardson DO Work Phone: Start: 10-05-2024 Platelet mean volume determination Dr. Erica Richardson DO Work Phone: Start: 09-28-2024 Mean corpuscular hem oglobin concentration determination Dr. Erica Richardson DO Work Phone: Start: 09-28-[address] Anny Richardson DO Work Phone: Start: 09-28-2024 Nucleated red blood cell count procedure Dr. Erica Richardson DO Work Phone: Start: 09-28-2024 Platelet mean volume determination Dr. Erica Richardson DO Work Phone: Start: [...] Erica Richardson DO Work Phone: Start: 09-23-2024 Mean corpuscular hem oglobin concentration determination Dr. Erica Richardson DO Work Phone: Start: 09-23-[address] Anny Richardson DO Work Phone: Start: 09-23-2024 Nucleated red blood cell count procedure Dr. Erica Richardson DO Work Phone: Start: 09-23-2024 Platelet mean volume determination Dr. Erica Richardson DO Work Phone: Start: 09-22-2024 Urine microscopy: red cells Dr. Erica Richardson DO Work Phone: Start: 09-22-2024 Urnls dip stick/tabl et reagent auto microscopy Dr. Erica Richardson DO Work Phone: Start: 09-22-2024 Plain chest X-ray Dr. Jsoh Richardson DO Work Phone: Start: 09-22-2024 CT of head without contrast Dr. Erica Richardson DO Work Phone: Start: 09-22-[address] Erica Richardson DO Work Phone: Start: 09-22-2024 SARS-CoV-2, Influenz a & RSV (PCR) Dr. Erica Richardson DO Work Phone: Start: 09-22-[address] Erica Richardson DO Work Phone: Start: 09-22-2024 Dr. Erica emjia DO Work Phone: Start: 09-11-2024 Urine culture [...] exam ches t 2 views Eliel Blount PROJECT DIRECTOR.WINDOW FRAMER Work Phone: Start: 07-02-2022 CT cervical spine [...] brain stem w/o w/contrast material Sherice Rosenberg PROJECT DIRECTOR.WINDOW FRAMER Work Phone: Start: 11-02-2021 Radiologic exam ches t 2 views Boaz Grimaldo PA-C Work Phone: Start: 10-30-2021 Ct head/brain w/o co ntrast material Yolie Lowe PA-C Work Phone: Start: 10-09-2021 Antibody screen ERICA BLACK Comment on above: Order Comment: Speci men Type: BLOOD SPECIMENOrdering Facility: [facility] Address: [address] [place] [id number] Performed By: #### T SCR ####[facility] BLOOD BANKCLIA [id number] [place] [address] [facility] Start: 10-07-2021 Antibody screen ERICA BLACK Comment on above: Order Comment: Speci men Type: BLOOD SPECIMENOrdering Facility: [facility] Address: [address] [place] [address] [place] [id number] Performed By: #### T SCR ####[facility] BLOOD BANKCLIA [id number] [place] [address] [facility] Start: 10-07-2021 Plain chest X-ray Dr. Josh [...] humerus minimu m 2 views Earline Amaury PROJECT DIRECTOR.WINDOW FRAMER Work Phone: Start: 12-08-2020 Adult depression scr eening assessment Nicho Johnson MD Work Phone: Start: 12-05-2020 Mammography Nicho jovel MD Work Phone: Start: 04-17-2020 ADD ON LAB TEST Kailee Mckeon Work Phone: Start: 04-17-2020 Ct head/brain w/o co ntrast material Anibal Ley Work Phone: Start: 04-17-2020 ADD ON LAB TEST Anibal Shannon Av Work Phone: Start: 04-17-2020 Albumin serum plasma /whole blood Anibal Shannon Av Work Phone: Start: 04-17-2020 Assay of lactate Anibal Shannon Va Work Phone: Start: 04-17-2020 Assay of magnesium Andr aaron Shannon Av Work Phone: Start: 04-17-2020 Assay of phosphorus inorganic Anibal Shannon Av Work Phone: Start: 04-17-2020 Assay of thyroid sti mulating hormone tsh Anibal Ley Work Phone: Start: 04-17-2020 BASIC METABOLIC PANE L W/ REFLEX TO MG FOR LOW K Anibal Shannon Av Work Phone: Start: 04-17-2020 Blood count complete auto&auto difrntl wbc Anibal Shannon Av Work Phone: Start: 04-17-2020 Cyanocobalamin vitamin b-12 Anibal Shannon Av Work Phone: Start: 04-16-2020 Assay of lactate Solomon R Geneer Work Phone: Start: 04-16-2020 Assay of ethanol Anibal Shannon Av Work Phone: Start: 04-16-2020 Assay of lactate Anibal Shannon Av Work Phone: Start: 04-16-2020 BASIC METABOLIC PANE L W/ REFLEX TO MG FOR LOW K Anibal Shannon Av Work Phone: Start: 04-16-2020 Blood count complete auto&auto difrntl wbc Anibal Ley Work Phone: Start: 04-16-2020 Drug screen class list a Anibal Ley Work Phone: Start: 04-16-2020 Ecg routine ecg w/le ast 12 lds w/i&r Anibal Ley Work Phone: Excision of breast tissue DR ERICA RICHARDSON DO Comment on above: Bilateral Excision of melanoma DR ERICA RICHARDSON DO Reduction of fracture DR ADELAIDA RICHARDSON DO Comment on above: Closed right arm Thyroidectomy DR ERICA RICHARDSON DO Comment on above: Left Urine culture Dr. Erica Richardosn Work Phone: Plan of Treatment Date Care Activity Detail Author Start: 06-16-2029 Urine microalbumin profile DTaP,Tdap,Td Vaccine (2 - Td or Tdap) [facility] Start: 10-17-2024 DIABETES SCREEN DIABETES SCREEN [facility] Start: 10-17-2024 Diabetes Screening Diabetes Screenin g [facility] Start: 10-12-2024 DIABETES SCREEN DIABETES SCREEN [facility] Start: 10-11-2024 DIABETES SCREEN DIABETES SCREEN [facility] Start: 09-26-2024 [facility] Start: 09-25-2024 Patient discharge [facility] Start: 09-23-2024 Following clinical pathway protocol [facility] Start: 09-23-2024 Patient referral to dietitian [facility] Start: 09-22-2024 Aspiration precautions [facility] Start: 09-22-2024 Assessment of risk o f venous thromboembolism [facility] Start: 09-22-2024 Fall prevention [facility] Start: 09-22-2024 Insertion of cathete r into peripheral vein [facility] Start: 09-22-2024 Introduction of urin neel catheter [facility] Start: 09-22-2024 Measuring intake and output [facility] Start: 09-22-2024 Providing care accor ding to standard [facility] Start: 09-22-2024 Provision of activit y privileges [facility] Start: 09-22-2024 Referral for physica l therapy [facility] Start: 09-22-2024 Referral to occupati onal therapist [facility] Start: 09-22-[address] [facility] Start: 09-22-2024 [facility] Start: 09-22-2024 Verification routine [facility] Start: 09-22-[address] [facility] Start: 09-22-2024 Hospital admission, emergency, from emergency room, medical nature [facility] Start: 09-22-2024 End: 09-22-2024 [facility] Start: 09-22-2024 Bacteria identified in Urine by Culture Urine Culture [facility] Start: 09-22-2024 Urine culture [facility] Start: 07-04-2024 [facility] Start: 07-04-2024 Venous catheter care management [facility] Start: 02-03-2024 End: 02-03-2024 ambulatory 02/03/2024 2:30 PM EDT [facility] Hematology/Oncology [address] [place] [address] [facility], Lab/[facility] [address] [place] [address] [facility]* Hematology/Oncology Comment on above: [facility]* Start: 12-22-2023 Covid-19 Vaccine ( season) Covid-19 Vaccine ( season) [facility] Start: 12-22-2023 Covid-19 Vaccine ( season) Covid-19 Vaccine ( season) [facility] Start: 12-22-2023 Influenza vaccination C [facility] Start: 11-23-2023 BP CONTROLLED (<130/80) BP CONTROLLE D (<130/80) [facility] Start: 08-20-2023 [facility] Start: 05-21-2023 Patient discharge [facility] Start: 05-21-2023 Removal of urinary catheter [facility] Start: 05-21-2023 Urinary bladder resi dual urine study [facility] Start: 05-19-2023 Aspiration precautions [facility] Start: 05-19-2023 Assessment of risk o f venous thromboembolism [facility] Start: 05-19-2023 Fall prevention [facility] Start: 05-19-2023 Inhalation therapy procedure [facility] Start: 05-19-2023 Insertion of cathete r into peripheral vein [facility] Start: 05-19-2023 Introduction of urin neel catheter [facility] Start: 05-19-2023 Measuring intake and output [facility] Start: 05-19-2023 Oxygen therapy [facility] Start: 05-19-2023 Providing care accor ding to standard [facility] Start: 05-19-2023 Provision of activit y privileges [facility] Start: 05-19-2023 Referral to occupati onal therapist [facility] Start: 05-19-[address] [facility] Start: 05-19-2023 Speech therapy assessment [facility] Start: 05-19-2023 [facility] Start: 05-19-2023 Following clinical pathway protocol [facility] Start: 05-19-2023 Hospital admission, emergency, from emergency room, medical nature [facility] Start: 05-19-2023 Legionella pneumophi la Ag [Presence] in Urine [facility] Start: 05-19-2023 Streptococcus pneumo niae antigen assay [facility] Start: 05-19-2023 Verification routine [facility] Start: 05-19-[address] [facility] Start: 05-18-2023 End: 05-19-2023 Blood culture [facility] Start: 05-18-2023 Partial thromboplast in time, activated [facility] Start: 05-18-2023 Prothrombin time [facility] Start: 05-18-2023 End: 05-18-2023 [facility] Start: 05-18-2023 Bacteria identified in Blood by Culture Blood Culture [facility] Start: 05-18-2023 Bacteria identified in Urine by Culture [facility] Start: 04-22-2023 Advance Directive Discussion Advance Directive Discussion [facility] Start: 04-22-2023 Behavioral Health Screening Behavioral Health Screening [facility] Start: 01-09-2023 BP CONTROLLED (<130/80) BP CONTROLLE D (<130/80) [facility] Start: 12-21-2022 Covid-19 Vaccine ( season) Covid-19 Vaccine () [facility] Start: 12-21-2022 Influenza vaccination C [facility] Start: 11-23-2022 Patient discharge [facility] Start: 11-23-2022 Venous catheter care management [facility] Start: 11-23-2022 Respiratory secretio n precautions [facility] Start: 11-22-2022 Physiotherapy of chest [facility] Start: 11-22-2022 Ambulation without limitation [facility] Start: 11-22-2022 Assessment of risk o f venous thromboembolism [facility] Start: 11-22-2022 Incentive spirometry [facility] Start: 11-22-2022 Insertion of cathete r into peripheral vein [facility] Start: 11-22-2022 Measuring intake and output [facility] Start: 11-22-2022 Oxygen therapy [facility] Start: 11-22-2022 Providing care accor ding to standard [facility] Start: 11-22-2022 Referral to occupati onal therapist [facility] Start: 11-22-[address] [facility] Start: 11-22-2022 [facility] Start: 11-22-2022 Following clinical pathway protocol [facility] Start: 11-22-[address] [facility] Start: 11-22-2022 Verification routine [facility] Start: 11-22-2022 [facility] Start: 11-22-2022 Inhalation therapy procedure [facility] Start: 11-03-2022 BP CONTROLLED (<130/80) BP CONTROLLE D (<130/80) [facility] Start: 11-02-2022 BP CONTROLLED (<130/80) BP CONTROLLE D (<130/80) [facility] Start: 10-07-2022 Influenza vaccination LUNG CANCER SC REENING [facility] Start: 10-07-2022 Screening for malign ant neoplasm of lung Lung Cancer Screening [facility] Start: 10-05-2022 DIABETES SCREEN DIABETES SCREEN [facility] Start: 07-02-2022 Simple repair f/e/e/ n/l/m 2.6cm-5.0 cm RPR F/E/E/N/L/M 2.6-5.0 CM [facility] Start: 04-22-2022 ADVANCE DIRECTIVE DISCUSSION ADVANCE DIRECTIVE DISCUSSION [facility] Start: 04-22-2022 DEPRESSION ASSESSMENT DEPRESSION ASS ESSMENT [facility] Start: 02-02-2022 End: 12-02-2022 Radiologic exam chest 2 views XR CHEST 2V FRONTAL/LAT Radiology Routine Closed fracture of multiple ribs with flail chest with routine healing, subsequent encounter Expected: 02/02/2022, Expires: 12/02/2022 [facility] Work Phone: Comment on above: Expected: 02/02/2022 , Expires: 12/02/2022 Start: 01-10-2022 Simple repair scalp/neck/ax/genit/trunk 2.5cm/< RPR S/N/AX/GEN/TRNK 2.5CM/< [facility] Work Phone: Start: 12-21-2021 Influenza vaccination INFLUENZA (#1) [facility] Start: 12-08-2021 Adult depression screening assessment DEPRESSION SCREENING [facility] Start: 12-05-2021 Mammography MAMMOGRAM [facility] Start: 2021 RSV Vaccine (1 - 1-d ose 75+ series) RSV Vaccine (1 - 1-dose 75+ series) [facility] Start: 10-25-2021 End: 11-10-2022 Ct head/brain w/o contrast material CT BRAIN WO IVCON Radiology Routine SDH (subdural hematoma) (HCC) Expected: 10/25/2021, Expires: 11/10/2022 [facility] Work Phone: Comment on above: Expected: 10/25/2021 , Expires: 11/10/2022 Start: 10-07-2021 Plain chest X-ray Chest 1 View (Port able) [facility] Work Phone: Start: 10-07-2021 XR Chest Single view [facility] Work Phone: Start: 10-06-2021 Perq drainage pleura insert cath w/o imaging INSERT CATH PLEURA W/O IMAGE [facility] Work Phone: Start: 04-22-2021 ADVANCE DIRECTIVE DISCUSSION ADVANCE DIRECTIVE DISCUSSION [facility] Start: 04-22-2021 DEPRESSION ASSESSMENT DEPRESSION ASS ESSMENT [facility] Start: 12-21-2020 COVID-19 VACCINE (3 - Booster for Moderna series) COVID-19 VACCINE (3 - Booster for Moderna series) [facility] Start: 10-05-2020 Influenza vaccination LUNG CANCER SC REENING [facility] Start: 09-15-2020 COVID-19 VACCINE (3 - Booster for Moderna series) COVID-19 VACCINE (3 - Booster for Moderna series) [facility] Start: 09-15-2020 COVID-19 VACCINE (3 - Moderna series) COVID-19 VACCINE (3 - Moderna series) [facility] Start: 05-09-2020 End: 04-17-2021 CT Head WO Contrast CT Head WO Contrast Imaging Routine Traumatic subdural hematoma with loss of consciousness of 30 minutes or less, subsequent encounter Expected: 05/09/2020 (Approximate), Expires: 04/17/2021 [facility] Comment on above: Expected: 05/09/2020 (Approximate), Expires: 04/17/2021 Start: 11-07-2011 Pneumococcal Vaccine : 65+ (1 of 1 - PCV) Pneumococcal Vaccine: 65+ (1 of 1 - PCV) [facility] Start: 11-07-2011 PNEUMOCOCCAL: 65+ (1 - PCV) PNEUMOCOCCAL: 65+ (1 - PCV) [facility] Start: 11-07-2011 PNEUMOVAX AGE 65 AND OVER WITH 5YR LOOKBACK (#1) PNEUMOVAX AGE 65 AND OVER WITH 5YR LOOKBACK (#1) [facility] Start: 2006 RSV Vaccine (1 - 1-d ose 60+ series) RSV Vaccine (1 - 1-dose 60+ series) [facility] Start: 1996 SHINGRIX VACCINE (1 of 2) VEGA GRIX VACCINE (1 of 2) [facility] Start: 11-07-1991 COLOGUARD (FIT-DNA) COLOGUARD (FIT-D NA) [facility] Start: 11-07-1991 Colonoscopy COLONOSCOPY [facility] Start: 11-07-1991 COLORECTAL CANCER SCREENING COLORECTAL CANCER SCREENING [facility] Start: 11-07-[address] COLONOGRAPHY [facility] Start: 11-07-1991 FECAL OCCULT BLOOD FECAL OCCULT BLOO D [facility] Start: 11-07-1991 LIPID SCREEN LIPID SCREEN [facility] Start: 11-07-1991 SIGMOIDOSCOPY SIGMOIDOSCOPY [facility] Start: 1965 SHINGRIX VACCINE (1 of 2) VEGA GRIX VACCINE (1 of 2) [facility] Start: 1965 Urine microalbumin profile DTAP,TDAP,TD (1 - Tdap) [facility] Start: 1964 ANNUAL PCP TEAM NEUROPSYCHOLOGY MEDICAL CONSULTANT ALICIA DISEASE VISIT ANNUAL PCP TEAM CHRONIC DISEASE VISIT [facility] Start: 1964 BP CONTROLLED (<130/80) BP CONTROLLE D (<130/80) [facility] Start: 1964 Depression Screening Depression Scre ening [facility] Start: 1964 HEPATITIS C SCREENING HEPATITIS C [facility] Start: 1964 Hepatitis C screening Hepatitis C [facility] Start: 1952 PNEUMOCOCCAL: 65+ (1 - PCV) PNEUMOCOCCAL: 65+ (1 - PCV) [facility] End: 04-17-2020 aPTT Coag (Bld) [Time] APTT Lab STAT One Time for 1 Occurrences starting 04/17/2020 until 04/17/2020 [facility] Comment on above: One Time for 1 Occur rences starting 04/17/2020 until 04/17/2020 aPTT in Platelet poo r plasma by Coagulation assay [facility] Bacteria identified in Sputum by Respiratory culture [facility] Basic Metabolic Pane l w/ Reflex to MG Basic Metabolic Panel w/ Reflex to MG Lab Routine Daily until discontinued starting 04/16/2020, 2 completed [facility] Comment on above: Daily until disconti nued starting 04/16/2020, 2 completed CBC auto differential CBC auto d ifferential Lab Routine Daily until discontinued starting 04/16/2020, 2 [facility] Comment on above: Daily until disconti nued starting 04/16/2020, 2 completed EKG 12 Lead EKG 12 Lead ECG Routine 04/16/2020 11:45 AM EST [facility] INR in Platelet poor plasma by Coagulation assay [facility] Magnesium [Mass/volu me] in Serum or Plasma [facility] Microscopic observat ion [Identifier] in Unspecified specimen by Gram stain [facility] Oxygen therapy [Mini mum Data Set] Initiate Oxygen Therapy Protocol Respiratory Care Routine Daily until discontinued starting 04/16/2020 [facility] Comment on above: Daily until disconti nued starting 04/16/2020 Patient Education [facility] Work Phone: Patient referral [facility] Work Phone: Phosphate [Mass/Vol] Phosphorus Lab Routine Daily until discontinued starting 04/17/2020, 1 completed [facility] Comment on above: Daily until disconti nued starting 04/17/2020, 1 completed Radiologic exam ches t 2 views XR CHEST 2V FRONTAL/LAT Radiology Routine Closed fracture of multiple ribs of left side, initial encounter Lung laceration, subsequent encounter 11/02/2021 12:32 PM EDT [facility] Work Phone: SARS-CoV-2 (COVID-19 ) RNA [Presence] in Respiratory specimen by LEONA with probe detection 2019 CORONAVIRUS Microbiology Routine Acute cough SOB (shortness of breath) Suspected COVID-19 virus infection 11/22/2022 12:45 PM EDT [facility] Work Phone: Serum inorganic phos phate measurement [facility] End: 04-16-2020 Speech and language therapy regime Speech language pathology evaluation 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 Routine One Time for 1 Occurrences starting 04/16/2020 until 04/16/2020 [facility] Comment on above: One Time for 1 Occur rences starting 04/16/2020 until 04/16/2020 End: 04-18-2020 Vitamin D 25 Hydroxy Vitamin D 25 Hydroxy Lab Routine Tomorrow AM for 1 Occurrences starting 04/18/2020 until 04/18/2020 [facility] Comment on above: Tomorrow AM for 1 Oc currences starting 04/18/2020 until 04/18/2020 [facility] Immunizations Immunization Date Immunization Notes Care Provider Fa albert 12-18-2023 tetanus toxoid, reduced diphtheria toxoid, and acellular pertussis vaccine, adsorbed Dr. Erica Richardson DO Work Phone: [facility] 08-20-2023 tetanus toxoid, reduced diphtheria toxoid, and acellular pertussis vaccine, adsorbed Dr. Erica Richardson Work Phone: [facility] 03-09-2021 influenza, injectabl e, quadrivalent, preservative free Dr. Erica Richardson Work Phone: [facility] 03-09-2021 influenza, seasonal, injectable Dr. Erica Richardson Work Phone: [facility] 03-09-2021 influenza virus vaccine, unspecified formulation Lab/Port Wstr Work Phone: [facility] 07-27-2020 Covid (Moderna) Dr. Erica kuhn Work Phone: [facility] 07-21-2020 COVID-19 vaccine, fu ll dose (MODERNA) Nicho Johnson MD Work Phone: [facility] 06-29-2020 Covid (Moderna) Dr. Erica kuhn Work Phone: [facility] 06-24-2020 COVID-19 vaccine, fu ll dose (MODERNA) Nicho Johnson MD Work Phone: [facility] 02-09-[address] Erica Richardson Work Phone: [facility] 02-09-2020 Dr. Erica Richardson DO Work Phone: [facility] 09-11-[address] Adelaida Richardson Work Phone: [facility] Work Phone: 09-11-2019 pneumococcal vaccine , unspecified formulation [facility] 06-16-2019 tetanus toxoid, reduced diphtheria toxoid, and acellular pertussis vaccine, adsorbed Dr. Erica Richardson Work Phone: [facility] 01-23-2019 influenza, high dose seasonal, preservative-free Nicho Johnson MD Work Phone: [facility] NEGATED: Highlighted row has not occurred!04-17-2020 tetanus and diphtheria toxoids, adsorbed, preservative free, for adult use (5 Lf of tetanus toxoid and 2 Lf of diphtheria toxoid) [place], [place] Payers Date Payer Category Payer Private Health Insurance [id number] 2024 Self-pay [id number] 2016 Unknown ARJUN DÍAZ ME DICARE SUPPLEMENT [id number] 2016-Present [phone] [address] [place] [address] Indemnity [id number] 2016 Unknown ARJUN DÍAZ ME DICARE SUPPLEMENT [id number] 2016-Present [phone] [address] [place] [address] Indemnity [id number] 2012 Unknown [id number] 2011 Medicare MEDICARE MEDICAR E A AND B [id number] 2011-Present [phone] [address] [address] [place] [address] Medicare [id number] 2011 Medicare [id number] [id number]. [id number] 2011 Medicare [id number] 1945 Unknown [id number] 2.16.840.1.942812.3.579. 2.627 Unknown [id number] 2.16840.1.469077.3.579. 2.462 Unknown [id number] 2.16.840.1.838079.3.579. 2.462 Unknown [id number] 2.16.840.1.952835.3.579. 2.462 Unknown [id number] 2.16.840.1.742109.3.579. 2.462 Unknown [id number] 2.16.840.1.067468.3.579. 2.462 Unknown [id number] 2.16.840.1.191885.3.579. 2.462 Unknown [id number] 2.16.840.1.849389.3.579. 2.462 Unknown [id number] 2.16.840.1.611283.3.579. 2.462 Unknown [id number] 2.16.840.1.788755.3.579. 2.462 Unknown [id number] 2.16.840.1.219953.3.579. 2.462 Unknown [id number] 2.16.840.1.358684.3.579. 2.462 Unknown [id number] 2.16.840.1.682751.3.579. 2.462 Unknown [id number] 2.16.840.1.263535.3.579. 2.462 Unknown [id number] 2.16.840.1.199746.3.579. 2.462 Unknown [id number] 2.16.840.1.052576.3.579. 2.462 Unknown [id number] 2.16.840.1.572762.3.579. 2.462 Unknown [id number] 2.16.840.1.449756.3.579. 2.462 Unknown [id number] 2.16.840.1.657666.3.579. 2.462 Unknown [id number] 2.16.840.1.220577.3.579. 2.462 Unknown [id number] 2.16.840.1.863731.3.579. 2.462 Unknown [id number] 2.16.840.1.511356.3.579. 2.462 Unknown [id number] 2.16.840.1.278794.3.579. 2.462 Unknown [id number] 2.16.840.1.002794.3.579. 2.462 Unknown [id number] 2.16.840.1.114429.3.579. 2.462 Unknown [id number] 2.16.840.1.834710.3.579. 2.462 Unknown [id number] 2.16.840.1.266154.3.579. 2.462 Unknown [id number] 2.16.840.1.985407.3.579. 2.462 Unknown [id number] 2.16.840.1.116107.3.579. 2.462 Unknown [id number] 2.16.840.1.098767.3.579. 2.462 Social History Date Type Detail Facility Start: 04-17-2020 End: 09-26-2024 Tobacco smoking status NHIS Former smoker [facility] Start: 02-20-1979 End: 02-20-2019 History of tobacco use Current smoker [place], [place] Start: 03-29-2020 End: 04-17-2020 Cigarettes smoked current (pack per day) - Reported [facility] Start: 05-01-2019 End: 04-17-2020 Tobacco use and exposure Never used [facility] Start: 04-17-2020 Alcohol intake Current drinke r [facility] (finding[facility] Start: 04-16-2020 Alcohol Comment 2-3 times a week [facility] Start: 1945 Sex Assigned At Not on file [facility] Start: 02-15-2021 End: 01-09-2022 Exposure to SARS-CoV-2 (event) Not sure [facility]z [facility] Start: 02-20-1979 End: 02-20-2019 History of tobacco use Cigarette Smoker [facility] Start: 01-12-2021 End: 07-12-2021 Alcohol intake Current non-drinker of alcohol (finding) [facility] Start: 08-07-2021 End: 08-20-2023 Tobacco smoking status NHIS Unknown if ever smoked [facility] Start: 03-11-2020 Heavy [facility] Start: 03-10-2020 None [facility] Start: 03-11-2020 Alone [facility] Start: 09-01-2019 Cigarettes [facility] Start: 1945 Sex Assigned At Female [facility] Start: 03-29-2020 End: 11-22-2022 Tobacco use panel [facility] National Score (1-10 0), lower number is lower risk 99 [facility] Start: 10-16-2018 End: 07-04-2024 Sex Female (finding) [facility] Start: 10-30-2018 Tobacco smoking status Light t obacco smoker (finding) [facility] Comment on above: Tobacco/smoke exposu re daily Sexual Orientation [facility] elvin [facility] Medical Equipment Procedure Code Equipment Code Equipment Origin al Text Equipment Identifier Dates Mnu-Ki-F-Kind Implant - [id number] Start: 06-10-2015 Comment on above: Description: 3.5mm L CP plate 6 hole 85mm length [id number] PLATE Xse-Kp-T-Kind Implant - [id number] Start: 06-10-2015 Comment on above: Description: DBX Put ty 0.5cc Screw [id number] Start: 06-13-2018 Plate Philos Standard Stainless Steel 90mm Bone 3 Hole Locking Compression - [id number] Start: 06-13-2018 Port Implantable Power Port 6fr - [id number] Start: 06-30-2012 Comment on above: Description: POWERPO RT Screw Lc-Dcp Dcp 3.5mm 6mm Full Thread Stainless Steel 14mm Bone Self Tap - [id number] Start: 06-10-2015 Screw Lcp 3.5mm Full Thread Stainless Steel 14mm Bone Stardrive Recess Self - [id number] Start: 06-10-2015 Screw Lc-Dcp Dcp 3.5mm 6mm Full Thread Stainless Steel 16mm Bone Self - [id number] Start: 06-10-2015 Screw 3.7mm T15 Full Thread Stainless Steel 36mm Bone Self Drill Cannulated - [id number] Start: 06-13-2018 Screw Lcp 3.5mm Full Thread Stainless Steel 26mm Bone Stardrive Recess Self - [id number] Start: 06-13-2018 Screw Dcp Lc-Dcp 3.5mm Stainless Steel 28mm Bone Self Tapping Hexagonal - [id number] Start: 06-13-2018 Screw 3.7mm Full Thread T15 Stainless Steel 38mm Bone Self Drill Cannulated - [id number] Start: 06-13-2018 Screw Lcp 3.5mm Stainless Steel 26mm Bone Self Tapping Small Fragment - [id number] Start: 06-13-2018 Screw 3.7mm T15 Full Thread Stainless Steel 50mm Bone Self Drill Cannulated - [id number] Start: 06-13-2018 Screw 3.7mm T15 Full Thread Stainless Steel 40mm Bone Self Drill Cannulated - [id number] Start: 06-13-2018 Plate Straight Eight Hole [id number] Start: 10-09-2021 Plate Pre-Contou red Sixteen Hole [id number] Start: 10-09-2021 Screw Locking Self-Drilling 2.4mm X 8mm [id number] Start: 10-09-2021 Cap Locking Larg e Bone Screw 323.1205 [id number] Start: 10-09-2021 Washer 9.5mm 323.1290 [id number] Start: 10-09-2021 Advatagerib Shor t Bridge 60mm W/23mm Locking Posts [id number] Start: 10-09-2021 2.7mm X 8mm Resc ue Locking Screw - [id number] Start: 10-09-2021 Goals Date Patient Goal Desired Activity /State Functional Status Date Assessment Result Facility 09-25-2024 Functional status Ambulates [facility] Work Phone: 05-21-2023 Functional status Ambulates [facility] Work Phone: 11-23-2022 Functional status Ambulates;Bathroom Priv ilege [facility] Work Phone: Mental Status Date Assessment Result Facility 09-25-2024 Cognitive function Voice/Name [facility] Work Phone: 09-22-2024 Cognitive function Level Of Cons ciousness Awake;Alert;Follows Commands [facility] Work Phone: 07-04-2024 Cognitive function Level Of Cons ciousness Awake;Alert;Appropriate [facility] Work Phone: 05-21-2023 Cognitive function Voice/Name [facility] Work Phone: 05-18-2023 Cognitive function Voice/Name [facility] Work Phone: 11-23-2022 Cognitive function Cooperative;Talkative [facility] Work Phone: 06-11-2021 Cognitive function Level Of Cons ciousness Awake;Alert;Appropriate;Follow s Commands [facility] Work Phone: Clinical Notes 07-17-2012 to 02-09-2025 Note Date & Type Note Facility 02-09-2025 Progress note [facility] 02-09-2025 Progress note Note Date/Time February 09, 2025 2:56pm [facility] [address] [place] [address] [place] [address] OFFICE VISIT Date of Service: 02/09/25 MR#: [id number] Acct: [id number] Name: AIDEN FIELDS Rep #: [id number] : 1945 Provider: Dr. Vasquez Ariza MD Age/Sex: 79/F Location: [facility] Status: Signed Intake Vital Signs 09/26/24 13:17 02/09/25 13:18 Height 5 ft 8 in 5 ft 8 in Weight: 150 lb BMI 22.8 Intake Visit Reasons: LEFT ARM Chief Complaint: left arm pain Accompanied by: Daughter Is patient in pain?: Yes Pain scale (1-10): 8 Allergies bacitracin (From Neosporin (ipp-yal-lfqqd)) Allergy (Unknown, Verified 02/09/25 13:20) Unknown neomycin (From Neosporin (zby-kac-hkitb)) Allergy (Unknown, Verified 02/09/25 13:20) Unknown polymyxin B (From Neosporin (xmd-jrj-qpsjj)) Allergy (Unknown, Verified 02/09/2513:20) Unknown Antihistamines - Alkylamine Allergy (Verified 02/09/25 13:20) PT UNSURE OF REACTION diphenhydramine (From Benadryl) Allergy (Verified 02/09/25 13:20) PT UNSURE OF REACTION Medications ?Medication ?Instructions ?Recorded ?Confirmed ?Type dexamethasone sodium phosphate 0.1 1 drp ophthalmic (e ye) DAILY 03/09/21 02/09/25 History % eye drops glaucoma amlodipine 5 mg tablet 5 mg PO DAILY 11/22/2202/09 History calcitriol 0.5 mcg capsule 0.5 mcg PO DAILY 11/22/22 1 History cholecalciferol (vitamin D3) 25 25 mcg PO DAILY SUPPLE MENT 11/22/22 02/09/25 History mcg (1,000 unit) capsule escitalopram oxalate 10 mg tablet 10 mg PO DAILY ANXIE TY 11/22/22 02/09/25 History (Lexapro) magnesium oxide 500 mg PO DAILY SUPPLEMENT 0 11/22/22 02/09/25 History meclizine 25 mg tablet 25 mg PO TID Dizziness 11/2202/09/25 History memantine 5 mg tablet 5 mg PO BID 11/22/22 5 History nabumetone 750 mg tablet 750 mg PO BID 11/22/2202/09 History albuterol sulfate 90 mcg/actuation 2 puff inhalation Q 6H PRN 11/23/22 02/09/25 Rx aerosol inhaler (Proventil HFA) shortness of breath or wheezing #8.5 grams acetaminophen 500 mg capsule 500 mg PO BID 05/19/23 History famotidine 20 mg tablet (Pepcid) 20 mg PO QHS 05/19/23 02/09/25 History pyridoxine (vitamin B6) 100 mg 100 mg PO DAILY 4 02/09/25 History tablet liothyronine 5 mcg tablet 5 mcg PO DAILY 07/04/2401/21 History quetiapine 25 mg tablet 25 mg PO QHS 07/04/24 History potassium chloride 8 mEq 8 meq PO QDAY 02/09/2502/09 History capsule,extended release pregabalin 75 mg capsule 75 mg PO TID 02/09/25 History valacyclovir 1 gram tablet 1,000 mg PO QDAY 02/09/25 1 History vitamins A,C,J-ztoi-aeccsm 4,296 1 cap PO BID 02/09/25 02/09/25 History mcg-226 mg-90 mg capsule (PreserVision AREDS) Have you fallen in the past year?: No PFSH Medical History (Updated 02/09/25 @ 13:55 by Cali Ariza MD) Left shoulder pain Neuropathic pain Chronic anxiety Humerus fracture Closed left humeral fracture Hypothyroidism Anxiety and depression Hypoparathyroidism after procedure Back problem Frequent falls Benzodiazepine dependence Opioid dependence Melanoma Tobacco abuse Hypothyroidism GERD (gastroesophageal reflux disease) Anemia Alcohol abuse Hypertension Multiple rib fractures Subdural hematoma Vitamin D deficiency Skin cancer Rheumatoid arthritis High cholesterol Calcium deficiency Glaucoma Breast cancer Arthritis Surgical History Status post glaucoma surgery H/O mastectomy H/O thyroidectomy Family History Unknown Thyroid disorder Cancer High cholesterol Arthritis Mother Cancer Diabetes Father , Father at the age of 50 from successful suicide attempt. Suicidal intent Other Alcohol abuse Anxiety Depression Heart disease Hypertension Mental disorder Parkinson disease Psychiatric care Social History household members: none housing: house Smoking Status: Former smoker second hand exposure: Yes alcohol intake: former substance use type: does not use HPI LEFT ARM Details: This documentation accurately reflects the service provided and the decisions made by me, Dr. Cail Ariza MD 02/09/25 1317. Part of today?s visit was documented by [ ], acting as scribe. AIDEN FIELDS is a 79 year old F here today for L distal clavicle fracture 3 years. RHD. lateral shoulder pain. hard to lift. has a PT. here with her daughter. in her home. has 24 hours care givers. uses a walker but mostly donita wheelchair and needs ++ assistance to get up and to the washroom. per ED notes 78-year-old female past medical anxiety, depression, hypoparathyroidism, [...] weakness they deny any blood thinning medications. Ortho Exam General General: Yes no acute distress (in wheelchair) Neurologic: Yes alert and Yes oriented x3 Psychologic: Yes reasonable and appropriate Left Shoulder Skin/Wound: Yes CDI, No ecchymosis, No erythema and No swelling Testing: Yes Hawkin's, Yes Neer's, No Speed's, No TTP Biceps, No TTP AC Joint, Yes empty can, No scapular winging and Yes belly press normal SHOULDER: normal motor and sens to axillary N, MRU and AIN/PIN. Hand warm well perfused normal radial pulse active fe 80, passive 100, er 35. strength fe 4, er 4+ Office Procedures Ortho Injections Injections Yes Subacromial Injection Left Is this a patient provided medication?: No Details: Obtained consent for injection. Under sterile conditions, injected the patientsleft shoulder with 2cc Kenalog, and 4cc Bupivacaine. The patient tolerated the injection well without any noted complication. Patient should call our office if redness develops, pain worsens or if they have any concerns. Office Meds Kenalog 40 mg/mL suspension for injection Performing Provider: Cali Ariza MD Performing Location: [facility] Administered by: Cali Ariza MD on 02/09/25 13:55 Dose Route Admin Location Dispensed Lot Number Expiration Date Pack age NDC NDC [employer] Consultant 40 mg intra-articular left shoulder 1 mL [id number] 04/22/26 [id number] [id number] [facility] Supplemental [facility] [address] [place] [address] Clavicle MR#: [id number] Acct: [id number] Name: AIDEN FIELDS Rep #: [id number] : 1945 F 78 From: Sim Grodon DO PCP: Dr. Sheyla Mcgee MD Status: REG ER Study: Clavicle Date of Exam: 09/26/24 Exam# [id number] Ordering Dr: Franky Olivas DO PROCEDURE: CLAVICLE 09/26/2024 REASON FOR EXAM: FALL Initial encounter TECHNIQUE: 2 view(s) of the left clavicle COMPARISON: No prior left clavicle radiographs. FINDINGS: LEFT CLAVICLE: Fracture in the distal 3rd of the clavicle with the parent 8 mm inferior displacement of the distal fracture fragment, been a apposition RAD/Clavicle IMPRESSION: Distal left clavicle fracture Reading Location: [facility] Imaging Services [address] [place], [place] [address] Extremity Upper without Contra MR#: [id number] Acct: [id number] Name: AIDEN FIELDS Rep #: [id number] : 1945 F 79 From: Howard Macias MD PCP: Dr. Erica Richardson DO Status: REG CLI Study: Extremity Upper without Contra Date of Exam: 01/16/25 Exam# [id number] Ordering Dr: Donovan Sigala PA-C PROCEDURE: EXTREMITY UPPER WITHOUT CONTRA 01/16/2025 REASON FOR EXAM: MUSCLE STRAIN, TENDON OF THE ROTATOR TECHNIQUE: Procedure Code: CTEUWO Modality: CT Procedure: EXTREMITY UPPER WITHOUT CONTRA Coronal and Sagittal reconstruction series were provided. One or more dose reduction techniques were used (e.g., Automated exposure control, adjustment of the mA and/or kV according to patient size, use of iterative reconstruction technique. RADIATION DOSE SUMMARY: DLP: 601 mGycm COMPARISON: None FINDINGS: There is hardware present in the left ribs. An old healed fracture of the left scapula is noted. 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 There is a 0.3 cm corticated osteochondral fragment in the superior joint space. 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 There is a moderate joint effusion. There is no visible muscular atrophy. There is no soft tissue mass or adenopathy. Scar is noted at the left lung apex. Atherosclerotic calcifications are noted. CT/Extremity Upper without Contra IMPRESSION: There is hardware present in the left ribs. An old healed fracture of the left scapula is noted. 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 There is a 0.3 cm corticated osteochondral fragment in the superior joint space. 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 Reading Location: [facility] Imaging Services [address] [place], [place] [id number] Shoulder min 2 Views MR#: [id number] Acct: [id number] Name: LIVEMARIELENAAIDEN Consuelo Rep #: [id number] : 1945 F 78 From: Sim Gordon DO PCP: Dr. Sheyla Mcgee MD Status: REG ER Study: Shoulder min 2 Views Date of Exam: 09/26/24 Exam# [id number] Ordering Dr: Franky Olivas DO PROCEDURE: SHOULDER [...] distal 3rd of the clavicle. [facility] I independently reviewed the imaging. Concur with radiologist report. 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 Given the patient's lack of mobility would not suggest doing a shoulder arthroplasty although could consider getting an MRI to consider rotator cuff repair although that would be a difficult recovery given her current status of needing quite a bit of help at home. I think the next best step here to be to consider a shoulder subacromial cortisone injection as the patient has been doing 2 months of focused physical therapy and has ongoing pain. The patient agrees we went ahead and did that they will follow-up in 3 months time or as needed. Pros and cons risks and benefits of left shoulder subacromial steroid injection were discussed. Patient wished to proceed. Risks include but not limited to infection, pain, stiffness, damage to other structures, neurovascular injury, wear further tear of the tendon and other structures such as the skin, bleeding,allergic reaction, acute flare reaction and other risks. Obtained informed consent for injection. Posterior lateral aspect of the shoulder was prepped with chlorhexidine solutionallowed to thoroughly dry over 3 minutes. Used Gebauer spray per bottle instructions. Using sterile technique, injected the left subacromial joint with a 4cc 0.25% bupivacaine and 2cc 40 mg/mL kenalog. Bandage placed. The patient tolerated the injection well without any noted complication. Red flag symptoms were discussed such as redness, swelling, discharge, drainage, pain worsens or if they have any concerns to present to the ED or to call the clinic immediately. Patient counselled on non-operative and operative means of treating shoulder pain. Conservative options include but not limited to: 1. Rest and Activity Modification: Giving your shoulder time to heal by avoidingmovements that cause pain can help. This may involve limiting overhead activities or heavy lifting. 2. Physical Therapy: A physical therapist can guide you through exercises that strengthen the muscles around the shoulder, improve flexibility, and reduce strain on the rotator cuff tendon. 3. Ice and Heat Therapy: Applying ice to the shoulder can help reduce swelling and pain, especially after activity. Heat can be helpful to relax tense muscles and improve blood flow before exercises. 4. Anti-Inflammatory Medications: Skdm-wox-inmlpqg medications like ibuprofen ornaproxen can help reduce pain and inflammation in the tendon. 5. Corticosteroid Injections: If the pain is more severe, a steroid injection can reduce inflammation in the shoulder and provide relief for a longer period. 6. Platelet-Rich Plasma (PRP) Injection: This treatment involves using your own blood to promote healing in the tendon. The plasma is rich in growth factors that can encourage tissue repair. 7. TENS (Transcutaneous Electrical Nerve Stimulation): This therapy uses a smallelectrical current to help manage pain and promote healing by stimulating nerves. (2) Left shoulder pain: Status: Acute Orders: Orders Ortho Injections Today S42.002A - Fracture of unspecified part of left clavicle, initial encounter for closed fracture Clinical Quality Measures Falls Risk Screening/Assistive Devices Have you fallen in the past year?: No 02/09/25 5892 <Electronically signed by Cali ochoa MD> Date _ Cali Ariza MD Cosigner Signature: Date (if applicable) CC: ~ [employer] Work Phone: 1(590) 897-118310-11-2025 Note. MICRO - Microbiology PROCEDURE: Urine Culture [*1] SOURCE: Urine BODY SITE: COLLECTED DATE/TIME: 01/28/2025 14:06 EDT RECEIVED DATE/TIME: 01/29/2025 15:23 EDT START DATE/TIME: 01/29/2025 15:24 EDT FREE TEXT SOURCE: FINAL REPORTS Final Report [] Verified Date/Time/Personnel: 01/30/2025 13:59 EDT 10,000 - 50,000 cfu/ml Multiple bacterial morphotypes present. Probable Contamination. Suggest recollection if clinically indicated. PRELIMINARY REPORTS Preliminary Report [] Verified Date/Time/Personnel: 01/29/2025 15:59 EDT Specimen received in lab. Performing Locations *1: This test was performed at: [address], [facility] , [facility]09-30-2025 Radiology Diagnostic study [facility] 09-26-2024 Discharge summary [facility] Medical Records Department [address] [place] [address] Emergency Department Summary 09/26/24 MR#: [id number] Acct: [id number] Name: AIDEN FIELDS Rep #:[id number] : 1945 78 From: Franky Olivas DO PCP: Dr. Sheyla cMgee MD Status:R ER Location: ED HPI History of Present Illness Chief Complaint: Fall Narrative Narrative: Patient is a 78-year-old female past medical anxiety, depression, hypoparathyroidism, tobacco use, alcohol abuse, arthritis who presented to the emergency department chief complaint of concern for a right clavicle fracture after a fall last night. According to family at bedside she attempted to getupon her own and she fell. Patient states that she did not hit her head she did not pass out she members entire event. Patient according to family bedside states that she just arrived to the rehab facility as she was just admitted to the hospital here for recurrent UTIs and generalized weakness they deny any blood thinning medications. [facility] Medical History Anxiety and depression Hypoparathyroidism after [...] Neosporin Allergy Unknown Unknown Verified 09/22/24 20:06 (fpn-ife-rqftw)) neomycin (From Neosporin Allergy Unknown Unknown Verified 09/22/24 20:06 (kyg-hlg-wzzuw)) polymyxin B (From Neosporin Allergy Unknown Unknown Verified 09/22/24 20:06 (rln-aic-bzdcl)) Antihistamines - Alkylamine Allergy PT UNSURE Verified [...] follow commands and that she was at [facility] the year is 2024. Sensation grossly [...] 8 mm inferior displacement of the distal fragmentfracture. Discussed case with Dr. Obregon who states [...] IMPRESSION: Distal left clavicle fracture Reading Location: [facility] Shoulder X-Ray 09/26/24 13:44 IMPRESSION: Fracture in the distal 3rd of the clavicle. Reading [facility] Discharge Plan Triage Chief Complaint: Fall ED [...] setting. Wear the sling. Return with worsening symptomsor any concerns Print Language: Lithuanian Disposition Disposition: Home, Self Care What to do if you have Problems For any increased pain, shortness of breath, bleeding, nausea or vomiting, chestpain, or any unexpected problems, contact your Primary Care Provider. Call [facility] ([phone]) or report tothe closest Emergency Room. Call 911 if necessary. 09/26/24 1507 Cosigner Signature (if applicable): CC: Dr. Sheyla Mcgee MD ~ Signed [facility]06-07-2025 Radiology Diagnostic study note [facility] Imaging Services [address] [place], [place] [id number] Shoulder min 2 Views MR#: [id number] Acct: [id number] Name: AIDEN FIELDS Rep #: [id number] : 1945 F 78 From: Pet er Peer PCP: Dr. Sheyla Mcgee MD Status: R EG ER Study:Shoulder min 2 Views Date of Exam: 09/26/24 Exam# [id number] Ordering Dr: Melva Olivas DO PROCEDURE: SHOULDER [...] distal 3rd of the clavicle. Reading Location: [facility] CC: Dr. Sheyla Mcgee MD; Dr. Franky Olivas DO ~ Gis Manager: Signed [facility]06-07-2025 Radiology Diagnostic study note [facility] Imaging Services [address] [place] [address] Clavicle MR#: [id number] Acct: [id number] Name: AIDEN FIELDS Rep #: [id number] : 1945 F 78 From: Pet er Peer DO PCP: Dr. Sheyla Mcgee MD Status: R EG ER Study:Clavicle Date of Exam: 09/26/24 Exam# [id number] Ordering Dr: Melva Olivas DO PROCEDURE: CLAVICLE 09/26/2024 REASON FOR EXAM: FALL Initial encounter TECHNIQUE: 2 view(s) of the left clavicle COMPARISON: No prior left clavicle radiographs. FINDINGS: LEFT CLAVICLE: Fracture in the distal 3rd of the clavicle with the parent 8 mm inferior displacement of the distalfracture fragment, been a apposition RAD/Clavicle IMPRESSION: Distal left clavicle fracture Reading Location: [facility] CC: Dr. Sheyla Mcgee MD; Dr. Franky Olivas DO ~ Gis Manager: Signed [facility]06-07-2025 Discharge summary Author Franky Olivas [facility] Note Date/Time September 26, 2024 3:07p m [facility] Medical Records Department [address] [place] [address] Emergency Department Summary 09/26/24 MR#: [id number] Acct: [id number] Name: AIDEN FIELDS Rep #:[id number] : 1945 78 From: Franky Olivas DO [...] weakness they deny any blood thinning medications. [facility] Medical History Anxiety and depression Hypoparathyroidism after [...] Neosporin Allergy Unknown Unknown Verified 09/22/24 20:06 (eed-cfo-fabbv)) neomycin (From Neosporin Allergy Unknown Unknown Verified 09/22/24 20:06 (jxl-ygm-hldou)) polymyxin B (From Neosporin Allergy Unknown Unknown Verified 09/22/24 20:06 (nns-bpa-wexxf)) Antihistamines - Alkylamine Allergy PT UNSURE Verified [...] follow commands and that she was at [facility] the year is 2024. Sensation grossly [...] IMPRESSION: Distal left clavicle fracture Reading [facility] Shoulder X-Ray 09/26/24 13:44 IMPRESSION: Fracture in the distal 3rd of the clavicle. Reading Location[facility] Discharge Plan Triage Chief Complaint: Fall ED [...] worsening symptoms or any concerns Print Language: Lithuanian Disposition Disposition: Home, Self Care What to do if you have Problems For any increased pain, shortness of breath, bleeding, nausea or vomiting, chestpain, or any unexpected problems, contact your Primary Care Provider. Call [facility] ([phone]) or report to the closest Emergency Room. Call 911 if necessary. 09/26/24 1655 <Electronically signed by Franky Olivas DO> Ariadna Signature (if applicable): CC: Dr. Sheyla Mcgee MD ~ Signed [facility] Work Phone: 1(939) 605-985206-06-2025 Discharge summary Author Froy Velázquez [facility] Note Date/Time September 25, 2024 10:34 am [facility] Medical Records Department [address] [place] [address] Discharge Summary 09/25/24 1032 MR#: [id number] Acct: [id number] Name: AIDEN FIELDS Rep #:[id number] : 1945 78 From: Froy Velázquez DO PCP: Dr. Erica Richardson DO Status:ADM IN [id number] Prov[facility] Date of Admission: 09/22/24 Primary [...] agents VTE prophylaxis: LMWH Disposition: DC to [facility] today. Medications at Discharge Home Medications [...] meropenem for 7 days. Patient be dischargedto [facility] living in stable condition. Weight / BMI [...] Usp Facility Charges/Coding Visit Charges Inpatient E&M: 29895 Disch Hosp >30min 09/25/24 1034 <Electronically signed by Froy Velázquez DO> Cosigner Signature (if applicable): CC: Dr. Froy Velázquez DO; Dr. Erica Richardson DO~ Signed [facility] Work Phone: 1(107) 458-346906-06-2025 Discharge summary Author Froy Velázquez [facility] Note Date/Time September 25, 2024 10:32 am [facility] Medical Records Department [address] [place] [address] Transfer to [facility] MR#: [id number] Acct: [id number] Name: AIDEN FIELDS Rep #:[id number] : 1945 78 From: Froy Velázquez DO PCP: Dr. Erica Richardson DO Status:ADM IN Certification of patient admission REQUIRED AT TIME OF ADMISSION. I CERTIFY THAT POST-HOSPITAL F SERVICES ARE REQUIRED TO BE GIVEN ON AN IN-PATIENT BASIS BECAUSE OF THE ABOVE NAMED PATIENT'S NEED FOR FCI CARE ON A CONTINUING BASIS FOR THE CONDITION(S) FOR WHICH HE/SHE WAS RECEIVING IN-PATIENT HOSPITAL SERVICES PRIOR TO HIS/HER TRANSFER TO THE [facility]. 09/25/24 1032<Electronically signed by Froy Velázquez DO> [...] agents VTE prophylaxis: LMWH Disposition: DC to [facility] today. Allergies/Procedures Done in Hospital Allergies bacitracin (From Neosporin (grb-lde-tkvtq)) Allergy (Unknown, Verified 09/22/24 20:06) Unknown neomycin (From Neosporin (awo-hku-pjkbf)) Allergy (Unknown, Verified 09/22/24 20:06) Unknown polymyxin B (From Neosporin (bue-slv-sfjqn)) Allergy (Unknown, Verified 09/23/2519:06) Unknown Antihistamines - [...] Usp Facility 09/25/24 1032 <Electronically signed by Fryo Velázquez DO> Cosigner Signature (if applicable): CC: Dr. Aggie Bolton MD; Dr. Erica Richardson DO ~ [facility] Work Phone: 1(674) 775-106406-06-2025 Progress note Author Froy Velázquez [facility] Note Date/Time September 25, 2024 10:26 am [facility] Medical Records Department [address] [place] [address] Progress Note - Hospitalist 09/25/24 0803 MR#: [id number] Acct: [id number] Name: AIDEN FIELDS Rep #:[id number] : 1945 78 From: Froy Velázquez DO PCP: Dr. Erica Richardson, DO Status:ADM IN Location: [place] [address] Reason for Visit Reason for Visit: Diagnoses [...] agents VTE prophylaxis: LMWH Disposition: DC to [facility] today. 09/25/24 1026 <Electronically signed by Froy Velázquez DO> Cosigner Signature (if applicable): CC: ~ Signed [facility] Work Phone: 1(535) 618-646206-06-2025 Discharge summary [facility] Medical Records Department [address] [place] [address] Discharge Summary 09/25/24 1032 MR#: [id number] Acct: [id number] Name: AIDEN FIELDS Rep #:[id number] : 1945 78 From: Froy Velázquez DO PCP: Dr. Erica Richardson DO Status:ADM IN Location: [place] [address] Providers Date of Admission: 09/22/24 Primary Care [...] agents VTE prophylaxis: LMWH Disposition: DC to [facility] today. Medications at Discharge Home Medications [...] meropenem for 7 days. Patient be dischargedto [facility] in stable condition. Weight / BMI [...] Usp Facility Charges/Coding Visit Charges Inpatient E&M: 24665 Disch Hosp >30min 09/25/24 1034 Cosigner Signature (if applicable): CC: Dr. Froy Velázquez DO; Dr. Erica Richardson DO~ Signed [facility]06-06-2025 Discharge summary [facility] Medical Records Department [address] [place] [address] Transfer to [facility] MR#: [id number] Acct: [id number] Name: AIDEN FIELDS Rep #:[id number] : 1945 78 From: Froy Velázquez DO PCP: Dr. Erica Richardson DO Status:ADM IN Certification of patient admission REQUIRED AT TIME OF ADMISSION. I CERTIFY THAT POST-HOSPITAL F SERVICES ARE REQUIRED TO BE GIVEN ON AN IN-PATIENT BASIS BECAUSE OF THE ABOVE NAMED PATIENT'S NEED FOR FCI CARE ON A CONTINUING BASIS FOR THE CONDITION(S) FOR WHICH HE/SHE WAS RECEIVING IN-PATIENT HOSPITAL SERVICES PRIOR TO HIS/HER TRANSFER TO THE [facility]. 09/25/24 1032 Diet Diet Order/Speech Therapy: INPATIENT [...] agents VTE prophylaxis: LMWH Disposition: DC to [facility] today. Allergies/Procedures Done in Hospital Allergies bacitracin (From Neosporin (naj-ssk-aocnn)) Allergy (Unknown, Verified 09/22/24 20:06) Unknown neomycin (From Neosporin (pla-hrx-lmmok)) Allergy (Unknown, Verified 09/22/24 20:06) Unknown polymyxin B (From Neosporin (yra-feu-dffbp)) Allergy (Unknown, Verified 09/23/2519:06) Unknown Antihistamines - [...] Bolton MD; Dr. Erica Richardson DO ~ [facility]06-06-2025 [facility] Medical Records Department [address] [place] [address] Discharge Summary 09/25/24 1032 MR#: [id number] Acct: [id number] Name: AIDEN FIELDS Rep #: [id number] : 1945 78 From: Froy Velázquez DO PCP: Dr. Erica Richardson DO Status:ADM IN Location: [place] [id number] Providers Date of Admission: 09/22/24 Primary Care [...] agents VTE prophylaxis: LMWH Disposition: DC to [facility] today. Medications at Discharge Home Medications [...] for 7 days. Patient be discharged to [facility] in stable condition. Weight / BMI [...] 20 mg tablet 2 (more content not included)...[facility]06-06-2025 Progress note [facility] Medical Records Department [address] [place] [address] Progress Note - Hospitalist 09/25/24 0803 MR#: [id number] Acct: [id number] Name: AIDEN FIELDS Rep #:[id number] : 1945 78 From: Froy Velázquez DO PCP: Dr. Erica Richardson DO Status:ADM IN Location: [place] [address] Reason for Visit Reason for Visit: Diagnoses [...] Catheter Urine Culture - Preliminary Citrobacter species 06/03/25 20:33 Mucosa - Nose SARS-CoV-2, Influenza & [...] agents VTE prophylaxis: LMWH Disposition: DC to [facility] today. 09/25/24 1026 Cosigner Signature (if applicable): CC: ~ Signed [facility]06-05-2025 Progress note Author Froy Velázquez [facility] Note Date/Time September 24, 2024 12:26 pm [facility] Medical Records Department [address] [place] [address] Progress Note - Hospitalist 09/24/24 0809 MR#: [id number] Acct: [id number] Name: LIVEMARIELENAAIDEN B Rep #:[id number] : 1945 78 From: Froy Velázquez DO PCP: Dr. Erica Richardson DO Status:ADM IN Location: [place] [address] Reason for Visit Reason for Visit: Diagnoses [...] 23:59 Intake Total 1050 / 1050 1969 Output Total 300 / 300 100 [...] on 09/25 Charges/Coding Visit Charges Inpatient E&M: 98663 Subs Hosp L2 09/24/24 1226 <Electronically signed by Froy Velázquez DO> Cosigner Signature (if applicable): CC: ~ Signed [facility] Work Phone: 1(607) 623-973506-05-2025 Progress note [facility] Medical Records Department [address] [place] [address] Progress Note - Hospitalist 09/24/24 0809 MR#: [id number] Acct: [id number] Name: AIDEN FIELDS Rep #:[id number] : 1945 78 From: Froy Velázquez DO PCP: Dr. Erica Richardson, DO Status:ADM IN Location: [place] [address]- Reason for Visit Reason for Visit: Diagnoses [...] Intake Total 1050 / 1050 1969 / 1970 Output Total 300 / 300 100 / [...] on 09/25 Charges/Coding Visit Charges Inpatient E&M: 34936 Subs Hosp L2 09/24/24 1226 Cosigner Signature (if applicable): CC: ~ Signed [facility]06-04-2025 Progress note Author Froy Velázquez [facility] Note Date/Time September 23, 2024 3:21p m [facility] Medical Records Department [address] [place] [address] Progress Note - Hospitalist 09/23/24815 MR#: [id number] Acct: [id number] Name: AIDEN FIELDS Consuelo Rep #:[id number] : 1945 78 From: Froy Velázquez DO PCP: Dr. Erica Richardson DO Status:ADM IN Location: [place] [address] Reason for Visit Reason for Visit: Diagnoses [...] (Auto) 69.5, Lymph % (Auto) 18.8 L, Keith % (Auto) 7.5, Eos % (Auto) 2.9, [...] Clarity Cancelled, Urine pH Cancelled, Ur Specific Cantril Cancelled, U Specif Grav (Refrac) Cancelled, Urine [...] Clarity Cloudy, Urine pH 5.0, Ur Specific Cantril 1.015, Urine Protein 15 H, Urine Glucose [...] (Auto) 70.6 H, Lymph % (Auto) 16.2 L,Keith % (Auto) 9.6, Eos % (Auto) 2.4, [...] IMPRESSION: No acute intracranial abnormality. Reading Location: [place] [address] Chest X-Ray 09/22/24 20:55 IMPRESSION: No acute cardiopulmonary abnormalities. Reading Location: [place] [address] Physical Exam Const alert and no apparent [...] prophylaxis: LMWH Charges/Coding Visit Charges Inpatient E&M: 54885 Subs Hosp L2 09/23/24 1521 <Electronically signed by Froy Velázquez DO> Cosigner Signature (if applicable): CC: ~ Signed [facility] Work Phone: 1(904) 471-209406-04-2025 Progress note [facility] Medical Records Department [address] [place] [address] Progress Note - Hospitalist 09/23/24 0816 MR#: [id number] Acct: [id number] Name: AIDEN FIELDS Rep #:[id number] : 1945 78 From: rFoy Velázquez DO PCP: Dr. Erica Richardson DO Status:ADM IN Location: [place] [address] Reason for Visit Reason for Visit: Diagnoses [...] (Auto) 69.5, Lymph % (Auto) 18.8 L, Keith % (Auto) 7.5, Eos % (Auto) 2.9, [...] Clarity Cancelled, Urine pH Cancelled, Ur Specific Cantril Cancelled, U Specif Grav (Refrac) Cancelled, Urine [...] Clarity Cloudy, Urine pH 5.0, Ur Specific Cantril 1.015, Urine Protein 15 H, Urine Glucose [...] (Auto) 70.6 H, Lymph % (Auto) 16.2 L,Keith % (Auto) 9.6, Eos % (Auto) 2.4, [...] IMPRESSION: No acute intracranial abnormality. Reading Location: [id number] Chest X-Ray 09/22/24 20:55 IMPRESSION: No acute cardiopulmonary abnormalities. Reading Location: [id number] Physical Exam Const alert and no apparent [...] prophylaxis: LMWH Charges/Coding Visit Charges Inpatient E&M: 50207 Subs Hosp L2 09/23/24 1521 Cosigner Signature (if applicable): CC: ~ Signed [facility]06-04-2025 History and physical note Author Aggie Bolton [facility] Note Date/Time September 23, 2024 12:18 am [facility] Medical Records Department [address] [place] [address] H&P Exam - Hospitalist 09/22/24 2244 MR#: [id number] Acct: [id number] Name: AIDEN FIELDS Rep #:[id number] : 1945 78 From: Aggie Bolton MD PCP: Dr. Erica Richardson, DO Status:ADM IN Location: [facility] [id number]- [id number] HPI - General General Date of [...] history Chronic anemia who presents to the [facility] ED on 09/22/2024 with history of [...] Neosporin Allergy Unknown Unknown Verified 09/22/24 20:06 (xsd-hut-ficio)) neomycin (From Neosporin Allergy Unknown Unknown Verified 09/22/24 20:06 (uxw-kso-fmvxf)) polymyxin B (From Neosporin Allergy Unknown Unknown Verified 09/22/24 20:06 (ntv-ahm-hacuh)) Antihistamines - Alkylamine Allergy PT UNSURE Verified [...] (Auto) 69.5, Lymph % (Auto) 18.8 L, Keith % (Auto) 7.5, Eos % (Auto) 2.9, [...] Clarity Cancelled, Urine pH Cancelled, Ur Specific Cantril Cancelled, U Specif Grav (Refrac) Cancelled, Urine [...] Clarity Cloudy, Urine pH 5.0, Ur Specific Cantril 1.015, Urine Protein 15 H, Urine Glucose [...] IMPRESSION: No acute intracranial abnormality. Reading Location: [place] [address] Chest X-Ray 09/22/24 20:55 IMPRESSION: No acute cardiopulmonary abnormalities. Reading Location: [place] [address] Assessment & Plan Assessment/Plan (1) UTI (urinary tract infection): PLAN: Plan The patient is a 78 y/o F w/ PMHx: HTN, Anxiety and Depression/Mood disorder, Former tobacco use, Former chart reported history EtOH abuse, Hx Frequent falls,Rheumatoid arthritis, Hypothyroidism s/p prior thyroidectomy, GERD, Hx Breast CAunclear type s/p mastectomy in remission, Chart reported history Chronic anemia who presents to the [facility] ED on 09/22/2024 with history of [...] her daughter is her healthcare power of commercial real estate attorney and patient is a full code. Charges/Coding Visit Charges Inpatient E&M: 63555 Init Hosp L3 09/23/24 0018 <Electronically signed by Aggie Bolton MD> Cosigner Signature (if applicable): CC: Dr. Aggie Bolton MD; Dr. Erica Richardson DO~ Signed [facility] Work Phone: 1(512) 839-397006-04-2025 Discharge summary Author Alexis Quijano [facility] Note Date/Time September 22, 2024 10:46 pm [facility] Medical Records Department [address] [place] [address] Emergency Department Summary 09/22/24 MR#: [id number] Acct: [id number] Name: AIDEN FIELDS Rep #:[id number] : 1945 78 From: Alexis Quijano MD [...] 12 hours which is unusual for her. [facility] Medical History Anxiety and depression Hypoparathyroidism after [...] Neosporin Allergy Unknown Unknown Verified 09/22/24 20:06 (rix-snt-iptxq)) neomycin (From Neosporin Allergy Unknown Unknown Verified 09/22/24 20:06 (xsl-vib-znjgc)) polymyxin B (From Neosporin Allergy Unknown Unknown Verified 09/22/24 20:06 (ehe-ssk-hcmsy)) Antihistamines - Alkylamine Allergy PT UNSURE Verified [...] Room Air Oxygen Flow Rate (L/min) 1 09/22/24 22:21 Temperature 98.1 F Temperature [...] (Auto) 69.5 Lymph % (Auto) 18.8 L Keith % (Auto) 7.5 Eos % (Auto) 2.9 [...] Cloudy Urine pH Cancelled 5.0 Ur Specific Cantril Cancelled 1.015 U Specif Grav (Refrac) Cancelled [...] IMPRESSION: No acute intracranial abnormality. Reading Location: [place] [address] Chest X-Ray 09/22/24 20:55 IMPRESSION: No acute cardiopulmonary abnormalities. Reading Location: [place] [address] Management Discussion w/another healthcare provider: Hospitalist (Dr. Bolton) Discharge Plan Dx/Rx/DC Orders Clinical Impression: Generalized weakness, Fatigue, Unable to ambulate, UTI (urinary tract infection), Elevated CPK Disposition Disposition: [facility] What to do if you have Problems For any increased pain, shortness of breath, bleeding, nausea or vomiting, chestpain, or any unexpected problems, contact your Primary Care Provider. Call [facility] ([phone]) or report to the closest Emergency Room. Call 911 if necessary. 09/22/242245 <Electronically signed by Alexis Quijano MD> Cosigner Signature (if applicable): CC: Dr. Erica Richardson, DO ~ Signed [facility] Work Phone: 1(104) 306-518806-04-2025 Evaluation note* Diagnosis Onset Date Resolution Status Admit Date Debility acute September 22, 2024 10:45pm Elevated CPK acute September 22 10:45pm Fatigue acute September 22, 2024 10:45pm Generalized weakness acute September 22, 2024 10:45pm Unable to ambulate acute September 222024 10:45pm UTI (urinary tract infection) acute September 22, 2024 10:45pm [facility] Work Phone: 1(203) 422-303606-04-2025 Evaluation note* Diagnosis Onset Date Resolution Status Admit Date Debility acute September 22, 2024 10:45pm Elevated CPK resolved September 22 10:45pm Fatigue resolved September 22, 2024 10:45pm Generalized weakness resolved September 22, 2024 10:45pm Unable to ambulate resolved September 222024 10:45pm UTI (urinary tract infection) resol ed September 22, 2024 10:45pm [facility] Work Phone: 1(249) 438-570106-04-2025 History and physical note [facility] Medical Records Department [address] [place] [address] H&P Exam - Hospitalist 09/22/24 2244 MR#: [id number] Acct: [id number] Name: AIDEN FIELDS Rep #:[id number] : 1945 78 From: Aggie Bolton MD PCP: Dr. Erica Richardson, DO Status:ADM IN Location: [place] [address] HPI - General General Date of Admission: [...] history Chronic anemia who presents to the [facility] ED on 09/22/2024 with history of [...] and Rocephin 1 g IV x 1. [facility] Medical History Anxiety and depression [...] Neosporin Allergy Unknown Unknown Verified 09/22/24 20:06 (fib-rkl-mdqmj)) neomycin (From Neosporin Allergy Unknown Unknown Verified 09/22/24 20:06 (ocj-zjn-icnec)) polymyxin B (From Neosporin Allergy Unknown Unknown Verified 09/22/24 20:06 (qay-hxo-kchig)) Antihistamines - Alkylamine Allergy PT UNSURE Verified [...] (Auto) 69.5, Lymph % (Auto) 18.8 L, Keith % (Auto) 7.5, Eos % (Auto) 2.9, [...] Clarity Cancelled, Urine pH Cancelled, Ur Specific Cantril Cancelled, U Specif Grav (Refrac) Cancelled, Urine [...] Clarity Cloudy, Urine pH 5.0, Ur Specific Cantril 1.015, Urine Protein 15 H, Urine Glucose [...] IMPRESSION: No acute intracranial abnormality. Reading Location: [place] [address] Chest X-Ray 09/22/24 20:55 IMPRESSION: No acute cardiopulmonary abnormalities. Reading Location: [id number] Assessment & Plan Assessment/Plan (1) UTI (urinary tract infection): PLAN: Plan The patient is a 78 y/o F w/ PMHx: HTN, Anxiety and Depression/Mood disorder, Former tobacco use, Former chart reported history EtOH abuse, Hx Frequent falls,Rheumatoid arthritis, Hypothyroidism s/p prior thyroidectomy, GERD, Hx Breast CAunclear type s/p mastectomy in remission, Chart reported history Chronic anemia who presents to the [facility] ED on 09/22/2024 with history of [...] full code. Charges/Coding Visit Charges Inpatient E&M: 19562 Init Hosp L3 09/23/24 0018 Cosigner Signature (if applicable): CC: Dr. Aggie Bolton MD; Dr. Erica Richardson DO~ Signed [facility]06-03-2025 Discharge summary [facility] Medical Records Department [address] [place] [address] Emergency Department Summary 09/22/24 MR#: [id number] Acct: [id number] Name: AIDEN FIELDS Rep #:[id number] : 1945 78 From: Alexis Quijano MD [...] 12 hours which is unusual for her. [facility] Medical History Anxiety and depression Hypoparathyroidism after [...] Neosporin Allergy Unknown Unknown Verified 09/22/24 20:06 (zmn-txp-tmeda)) neomycin (From Neosporin Allergy Unknown Unknown Verified 09/22/24 20:06 (biv-kwl-nordi)) polymyxin B (From Neosporin Allergy Unknown Unknown Verified 09/22/24 20:06 (ehm-gnc-vuyxv)) Antihistamines - Alkylamine Allergy PT UNSURE Verified [...] of 11.6 which I think is nonspecific, bboviwhrsb03.2, hematocrit 39.5, platelet count normal at259. Potassium [...] (Auto) 69.5 Lymph % (Auto) 18.8 L Keith % (Auto) 7.5 Eos % (Auto) 2.9 [...] Cloudy Urine pH Cancelled 5.0 Ur Specific Cantril Cancelled 1.015 U Specif Grav (Refrac) Cancelled [...] IMPRESSION: No acute intracranial abnormality. Reading Location: [place] [address] Chest X-Ray 09/22/24 20:55 IMPRESSION: No acute cardiopulmonary abnormalities. Reading Location: [place] [address] Management Discussion w/another healthcare provider: Hospitalist (Dr. Bolton) Discharge Plan Dx/Rx/DC Orders Clinical Impression: Generalized weakness, Fatigue, Unable to ambulate, UTI (urinary tract infection), Elevated CPK Disposition Disposition: Acute Care Hospital [facility] What to do if you have Problems For any increased pain, shortness of breath, bleeding, nausea or vomiting, chestpain, or any unexpected problems, contact your Primary Care Provider. Call [facility] ([phone]) or report tothe closest Emergency Room. Call 911 if necessary. 09/22/247 Cosigner Signature (if applicable): CC: Dr. Erica Richardson, ~ Signed [facility]06-03-2025 Radiology Diagnostic study note [facility] Imaging Services [address] [place], [place] [address] Chest 1 View (Portable) MR#: [id number] Acct: [id number] Name: AIDEN FIELDS Rep #: [id number] : 1945 F 78 From: Gui Mullen MD PCP: Dr. Erica Richardson DO Status: REG ER Study:Chest 1 View (Portable) Date of Exam: 09/22/24 Exam# [id number] Ordering Dr: Alexis Quijano MD PROCEDURE: CHEST 1 VIEW (PORTABLE) 09/22/2024 REASON FOR EXAM: SHORTNESS OF BREATH TECHNIQUE: Frontal view of the chest. COMPARISON: 07/04/2024. FINDINGS: The heart is normal in size. Right chest Port-A-Cath. The lungs are clear. Right humeral plate and screw fixation. Left rib plate and screw fixation. RAD/Chest 1 View (Portable) IMPRESSION: No acute cardiopulmonary abnormalities. Reading Location: [place] [address] CC: Dr. Alexis Quijano MD; Dr. Erica Richardson DO ~ Gis Manager: Signed [facility]06-03-2025 Radiology Diagnostic study note [facility] Imaging Services [address] [place], [place] [address] Brain/Head without Contrast MR#: [id number] Acct: [id number] Name: AIDEN FIELDS Rep #: [id number] : 1945 F 78 From: Gui Mullen MD PCP: Dr. Erica Richardson DO Status: REG ER Study:Brain/Head without Contrast Date of Exa m: 09/22/24 Exam# [id number] Ordering Dr: Alexis Quijano MD PROCEDURE: BRAIN/HEAD [...] mGy DLP: 897.35 mGycm COMPARISON: 08/20/2023. FINDINGS: Fgydmdmv-gu-pgwtcv global parenchymal atrophy. Periventricular white matter hypodensity likely representing chronic microvascular ischemia. No evidence of acute hemorrhage or infarction. No extra- axial blood or fluid collections. The paranasal sinuses are clear. The mastoid air cells are well aerated. The calvarial vault and skull base are intact. CT/Brain/Head without Contrast IMPRESSION: No acute intracranial abnormality. Reading Location: [id number] CC: Dr. Alexis Quijano MD; Dr. Erica Richardson DO ~ Gis Manager: Signed [facility]06-03-2025 Evaluation note* Diagnosis Onset Date Resolution Status Admit Date Elevated CPK acute September 22 10:45pm Fatigue acute September 22, 2024 10:45pm Generalized weakness acute September 22, 2024 10:45pm Unable to ambulate acute September 222024 10:45pm UTI (urinary tract infection) acute September 22, 2024 10:45pm [facility] Work Phone: 1(557) 372-440203-15-2025 Radiology Diagnostic study note [facility] Imaging Services [address] [place] [address] Chest PA and Lateral MR#: [id number] Acct: [id number] Name: AIDEN FIELDS Rep #: [id number] : 1945 F 78 From: Abhi Carrington DO PCP: Dr. Erica Richardson DO Status: [facility] ER Study:Chest PA and Lateral Date of Exam: 07/04/24 Exam# [id number] Ordering Dr: Froy Cameron DO PROCEDURE: CHEST [...] Cameron DO; Dr. Erica Richardson DO ~ Gis Manager: Signed [facility]04-30-2024 Discharge summary Author Seb Bautista [facility] August 20, 2023 4:47pm Note Date/Time August 20, 2023 1:0 3pm [facility] Medical Records Department [address] [place] [address] Emergency Department Summary 08/20/23 MR#: [id number] Acct: [id number] Name: AIDEN FIELDS Rep #:[id number] : 1945 77 From: Seb Nguyen PCP: Dr. Erica Richardson DO Status:REG ER Location: ED HPI History of Present Illness Chief Complaint: Laceration PFSH PFS Medical History Alcohol abuse Anemia Anxiety and [...] Unknown Unknown Verified 08/20/23 12:28 [From Neosporin (hgf-paz-lmyqp)] neomycin Allergy Unknown Unknown Verified 08/20/23 12:28 [From Neosporin (jmz-sse-gahnc)] polymyxin B Allergy Unknown Unknown Verified 08/20/23 12:28 [From Neosporin (wda-awn-mvkqb)] Antihistamines - Alkylamine Allergy PT UNSURE Verified [...] History obtained from others: none Consults: none [facility] Narrative: The patient was hemodynamically stable, [...] Discharge home This note was generated with [employer] dictation software. It may contain incorrectwords, spelling, [...] your Primary Care Provider. Call [facility] ([phone]) or report to the closest Emergency Room. Call 911 if necessary. 08/20/23 1647 <Electronically signed by Seb Bautista DO> Cosigner Signature (if applicable): CC: Dr. Erica Richardson DO ~ Signed [facility] Work Phone: 1(340) 358-898101-30-2024 Consult note [facility] May 21, 2023 10:55am Note Date/Time May 21, 2023 1 0:56am [facility] Medical Records Department [address] [place] [address] Counseling Note - Pharmacy 05/21/23 1055 MR#: [id number] Acct: [id number] Name: AIDEN FIELDS Rep #:[id number] : 1945 77 From: Aryan Harris PCP: Dr. Erica Richardson, DO Status:ADM IN Y Location: [facility] [id number] Pharmacy [facility] has performed discharge medication reconciliation [...] Signature (if applicable): Date CC: ~ Signed [facility] Work Phone: 1(508) 325-393201-30-2024 Discharge summary Author Froy Velázquez [facility] May 21, 2023 10:34am Note Date/Time May 21, 2023 1 0:31am [facility] Medical Records Department [address] [place] [address] Discharge Summary 05/21/23 1030 MR#: [id number] Acct: [id number] Name: AIDEN FIELDS Rep #:[id number] : 1945 77 From: Froy Velázquez DO PCP: Dr. Erica Richardson DO Status:ADM IN Location: [facility] [id number] Providers Date of Admission: 05/19/23 Primary Care Physician: Dr. Erica Richardson, DO Reason For Visit: ENCEPHALOPATHY, UTI, ASPIRATION [...] with rheumatology as needed. DC home with [facility]. Medications at Discharge Home Medications potassium [...] Health Service Charges/Coding Visit Charges Inpatient E&M: 73856 Disch Hosp >30min 05/21/23 1034 <Electronically signed by Froy Velázquez DO> Cosigner Signature (if applicable): CC: Dr. Froy Velázquez DO; Dr. Erica Richardson DO~ Signed [facility] Work Phone: 1(518) 607-355601-30-2024 Progress note Author Froy tatyana [facility] May 21, 2023 10:30am Note Date/Time May 21, 2023 8 :27am [facility] Medical Records Department [address] [place] [address] Progress Note - Hospitalist 05/21/23 0823 MR#: [id number] Acct: [id number] Name: AIDEN FIELDS Rep #:[id number] : 1945 77 From: Froy Velázquez DO PCP: Dr. Erica Richardson DO Status:ADM IN Location: [place]3 FS810-4 Reason for Visit Reason for Visit: Diagnoses [...] with rheumatology as needed. DC home with [facility]. 05/21/23 1030 <Electronically signed by Froy Velázquez DO> Cosigner Signature (if applicable): CC: ~ Signed [facility] Work Phone: 1(134) 983-549401-29-2024 Progress note Author Froy Velázquez [facility] May 20, 2023 2:08pm Note Date/Time May 20, 2023 9 :07am [facility] Medical Records Department [address] [place] [address] Progress Note - Hospitalist 05/20/23 0900 MR#: [id number] Acct: [id number] Name: AIDEN FIELDS Rep #:[id number] : 1945 77 From: Froy Velázquez DO PCP: Dr. Erica Richardson, DO Status:ADM IN Location: MS3 MR356-6 Subjective Subjective Feels well. No issues overnight. [...] 76.9 H, Lymph % (Auto) 9.6 L, Keith % (Auto) 10.8 H, Eos % (Auto) 1.6, Baso % (Auto) 0.5, Absolute Neuts (auto) 14.5 H, Absolute Lymphs (auto) 1.81, Nucleated RBC % 0, Differential Comment SCANNED, Diff Path Review May foll, Sodium 142, Potassium 3.5, Chloride 113 [...] Hand Blood Culture - Preliminary GNR lactose manager user experience 05/19/23 00:00 Urine, Clean Catch Legionella Antigen [...] prophylaxis: Heparin. Charges/Coding Visit Charges Inpatient E&M: 18486 Subs Hosp L2 05/20/23 1408 <Electronically signed by Froy Velázquez DO> Cosigner Signature (if applicable): CC: ~ Signed [facility] Work Phone: 1(787) 769-600601-28-2024 Progress note Author Vernon Osman [facility] May 19, 2023 8:02am Note Date/Time May 19, 2023 7 :06am [facility] Medical Records Department [address] [place] [address] Progress Note 05/19/23705 MR#: [id number] Acct: [id number] Name: AIDEN FIELDS Rep #:[id number] : 1945 77 From: Vernon Osman MD PCP: Dr. Erica Malys, DO Status:ADM IN Location: [place]3 [id number] Progress Note Patient is a 77-year-old lady [...] Cosigner Signature (if applicable): CC: ~ Signed [facility] Work Phone: 1(432) 848-953601-28-2024 Discharge summary Author Jorge Cardona [facility] May 19, 2023 2:16am Note Date/Time May 19, 2023 1 2:30am [facility] Medical Records Department [address] [place] [address] Emergency Department Summary 05/19/23 MR#: [id number] Acct: [id number] Name: AIDEN FIELDS Rep #:[id number] : 1945 77 From: Jorge Cardona MD [...] hypoxia due to rhinovirus.) Recent Illness[facility] Medical History (Updated 05/19/23 @ 02:16 by [...] Unknown Unknown Verified 05/18/23 23:29 [From Neosporin (rhz-ett-orhsa)] neomycin Allergy Unknown Unknown Verified 05/18/23 23:29 [From Neosporin (xnj-rur-uipwu)] polymyxin B Allergy Unknown Unknown Verified 05/18/23 23:29 [From Neosporin (ank-knr-itind)] Antihistamines - Alkylamine Allergy PT UNSURE Verified [...] 89.8 H Lymph % (Auto) 6.3 L Keith % (Auto) 2.4 Eos % (Auto) 0.3 [...] Clarity Cloudy Urine pH 6.0 Ur Specific Cantril 1.010 Urine Protein 100 H Urine Glucose [...] follows: Interpretation: Sinus Tachycardia (Rate is 111. TX interval is 114 ms. Cures duration 70 ms. QT duration is 298 ms. [place] is normal. Computer is reading ST-T wave [...] with treatment for hypertension), Discussing w/Patient &/or Family/Flange Machine Operator, Discussing w/Consultants and Arranging Admission or Transfer Discharge Plan Dx/Rx/DC Orders Clinical Impression: Acute hypoxic respiratory failure, Pyuria, SIRS (systemic inflammatory responsesyndrome), Encephalopathy due to infection, Ketosis, Acute hypotension, Creatinine elevation Disposition Disposition: Acute Care Hospital [facility] What to do if you have Problems For any increased pain, shortness of breath, bleeding, nausea or vomiting, chestpain, or any unexpected problems, contact your Primary Care Provider. Call [facility] ([phone]) or report to the closest Emergency Room. Call 911 if necessary. 05/19/23215 <Electronically signed by Jorge Cardona MD> Cosigner Signature (if applicable): CC: Dr. Erica Richardson, DO ~ Signed [facility] Work Phone: 1(712) 369-181901-28-2024 History and physical note Author Aggie Bolton [facility] May 19, 2023 1:45am Note Date/Time May 19, 2023 1 :39am [facility] Medical Records Department [address] [place] [address] H&P Exam - Hospitalist 05/19/23 0135 MR#: [id number] Acct: [id number] Name: AIDEN FIELDS Rep #:[id number] : 1945 77 From: Aggie Bolton MD [...] of prior records who presents to the [facility] ED on 05/19/23 with significant [...] Unknown Unknown Verified 05/18/23 23:29 [From Neosporin (kua-eiz-gsmgn)] neomycin Allergy Unknown Unknown Verified 05/18/23 23:29 [From Neosporin (dta-csd-ucert)] polymyxin B Allergy Unknown Unknown Verified 05/18/23 23:29 [From Neosporin (puo-qbe-afgla)] Antihistamines - Alkylamine Allergy PT UNSURE Verified [...] 89.8 H, Lymph % (Auto) 6.3 L, Keith % (Auto) 2.4, Eos % (Auto) 0.3, [...] Urine Clarity Cloudy, Urine pH6.0, Ur Specific Cantril 1.010, Urine Protein 100 H, Urine Glucose [...] Electronically Signed: Eliel Christensen, at 0:46 EST Reading Location ID and State: [facility] / [place] Tel , Service support , Assessment & Plan Assessment/Plan (1) Encephalopathy due to infection: PLAN: Plan The patient is a 74 y/o F w/ PMHx: Dementia unclear type with unclear behavioraldisturbance history, Chronic anemia, Hx Breast CA s/p mastectomy, HTN, HLD, Rheumatoid arthritis, Hypothyroidism, Anxiety and Depression, EtOH abuse/Polysubstance dependency including BZD/opiates per review of prior recordswho presents to the [facility] ED on 05/19/23 with significant [...] prophylaxis: Heparin. Charges/Coding Visit Charges Inpatient E&M: 72867 Init Hosp L3 05/19/23 0145 <Electronically signed by Aggie Bolton MD> Cosigner Signature (if applicable): CC: Dr. Aggie Bolton MD; Dr. Erica Richardson DO~ Signed [facility] Work Phone: 1(598) 521-626201-28-2024 Discharge summary Author Jorge Cardona [facility] May 19, 2023 2:16am Note Date/Time May 19, 2023 1 2:30am [facility] Medical Records Department [address] [place] [address] Emergency Department Summary 05/19/23 MR#: [id number] Acct: [id number] Name: AIDEN FIELDS Rep #:[id number] : 1945 77 From: Jorge Cardona MD [...] hypoxia due to rhinovirus.) Recent Illness/Hospitalization: No [facility] Medical History (Updated 05/19/23 @ 02:16 by [...] Unknown Unknown Verified 05/18/23 23:29 [From Neosporin (aec-adp-bswgm)] neomycin Allergy Unknown Unknown Verified 05/18/23 23:29 [From Neosporin (eba-gzp-psbll)] polymyxin B Allergy Unknown Unknown Verified 05/18/23 23:29 [From Neosporin (ejn-wgp-ivisa)] Antihistamines - Alkylamine Allergy PT UNSURE Verified [...] 89.8 H Lymph % (Auto) 6.3 L Keith % (Auto) 2.4 Eos % (Auto) 0.3 [...] Clarity Cloudy Urine pH 6.0 Ur Specific Cantril 1.010 Urine Protein 100 H Urine Glucose [...] follows: Interpretation: Sinus Tachycardia (Rate is 111. TX interval is 114 ms. Cures duration 70 ms. QT duration is 298 ms. [place] is normal. Computer is reading ST-T wave [...] with treatment for hypertension), Discussing w/Patient &/or Family/Flange Machine Operator, Discussing w/Consultants and Arranging Admission or Transfer Discharge Plan Dx/Rx/DC Orders Clinical Impression: Acute hypoxic respiratory failure, Pyuria, SIRS (systemic inflammatory responsesyndrome), Encephalopathy due to infection, Ketosis, Acute hypotension, Creatinine elevation Disposition Disposition: Acute Care Hospital [facility] What to do if you have Problems For any increased pain, shortness of breath, bleeding, nausea or vomiting, chestpain, or any unexpected problems, contact your Primary Care Provider. Call [facility] ([phone]) or report to the closest Emergency Room. Call 911 if necessary. 05/19/23215 <Electronically signed by Jorge Cardona MD> Cosigner Signature (if applicable): CC: Dr. Erica Richardson, ~ Signed [facility] Work Phone: 1(962) 105-605308-04-2023 Miscellaneous Notes* Telephone Encounter - Melissa Sprague LPN - 11/23/2022 6:42 PM EDT Patient notified.Melissa Sprague LPN * Telephone Encounter - Christie Cruz LPN - 11/23/2022 7:52 AM EDT Phone call placed brief message to contact a nurse to review results. Christie Cruz LPN * Telephone Encounter - Jovani Gallegos APRN.CNP - 11/23/2022 7:30 AM EDT Please notify that covid testing negative. Continue with plan of care as discussed during visit. [facility] History and physical note Author Bandar Chanel [facility] November 22, 2022 7:40pm Note Date/Time November 22, 2022 6:0 8pm [facility] Medical Records Department [address] [place] [address] H&P Exam - Hospitalist 11/22/22 1804 MR#: [id number] Acct: [id number] Name: AIDEN FIELDS Rep #:[id number] : 1945 77 From: Bandar Mckenna PCP: Dr. Erica Richardson, DO Status:ADM MAXIME Location: [place] [address] HPI - General General Date of Admission: [...] lobe most likely due to prior radiation. [facility] Medical History Alcohol abuse Alcohol [...] Unknown Unknown Verified 11/22/22 12:44 [From Neosporin (bef-ozd-tcees)] neomycin Allergy Unknown Unknown Verified 11/22/22 12:44 [From Neosporin (cjb-wma-yugvx)] polymyxin B Allergy Unknown Unknown Verified 11/22/22 12:44 [From Neosporin (gmk-gxf-enpqk)] Antihistamines - Alkylamine Allergy PT UNSURE Verified [...] (Auto) 64.5, Lymph % (Auto) 15.4 L, Keith % (Auto) 12.3 H, Eos % (Auto) [...] shock if needed Total time spent in dgem-tw-lhgo encounter in discussion of advanced directive 17 [...] (Auto) 64.5, Lymph % (Auto) 15.4 L, Keith % (Auto) 12.3 H, Eos % (Auto) [...] EDT , Charges/Coding Visit Charges Inpatient E&M: 72036 Init Hosp L3 Procedures Hospitalists Procedures: 67406 Advncd Care Plan 30 Min 11/22/221939 <Electronically signed by Bandar Chanel MD> Cosigner Signature (if applicable): CC: Dr. Erica Richardson DO; Dr. Bandar Chanel MD~ Signed [facility] Work Phone: 1(948) 953-888008-03-2023 Discharge summary Author Katie Randle [facility] November 22, 2022 4:54pm Note Date/Time November 22, 2022 1:0 9pm [facility] Medical Records Department [address] [place] [address] Emergency Department Summary 11/22/22 MR#: [id number] Acct: [id number] Name: AIDEN FIELDS Rep #:[id number] : 1945 77 From: Katie Nguyen PCP: [...] other complaints or concerns at this time. [facility] Medical History Alcohol abuse Alcohol intoxication Anemia [...] Unknown Unknown Verified 11/22/22 12:44 [From Neosporin (thv-wtl-mvmmx)] neomycin Allergy Unknown Unknown Verified 11/22/22 12:44 [From Neosporin (kae-vsy-vemfp)] polymyxin B Allergy Unknown Unknown Verified 11/22/22 12:44 [From Neosporin (bnl-dpg-oudeo)] Antihistamines - Alkylamine Allergy PT UNSURE Verified [...] (Auto) 64.5 Lymph % (Auto) 15.4 L Keith % (Auto) 12.3 H Eos % (Auto) [...] Triage Chief Complaint: Cough ED Provider: Katie Ranlde Dx/Rx/DC Orders Clinical Impression: Cough, Hypoxia Prescriptions: [...] Provider] - Disposition Disposition: Acute Care Hospital [facility] What to do if you have Problems For any increased pain, shortness of breath, bleeding, nausea or vomiting, chestpain, or any unexpected problems, contact your Primary Care Provider. Call [facility] ([phone]) or report to the closest Emergency Room. Call 911 if necessary. 11/22/22 1654 <Electronically signed by Katie Randle DO> Cosigner Signature (if applicable): CC: Dr. Erica Richardson DO ~ Signed [facility] Work Phone: 1(958) 217-494908-03-2023 Discharge summary Author [facility] November 22, 2022 4:54pm Note Date/Time November 22, 2022 1:0 9pm [facility] Medical Records Department [address] [place] [address] Emergency Department Summary 11/22/22 MR#: [id number] Acct: [id number] Name: AIDEN FIELDS Rep #:[id number] : 1945 77 From: Katie Nguyen PCP: Dr. Erica Richardson, DO Status:REG ER [...] other complaints or concerns at this time. [facility] Medical History Alcohol abuse Alcohol intoxication Anemia [...] Unknown Unknown Verified 11/22/22 12:44 [From Neosporin (itc-tek-tystf)] neomycin Allergy Unknown Unknown Verified 11/22/22 12:44 [From Neosporin (xui-bus-grpnp)] polymyxin B Allergy Unknown Unknown Verified 11/22/22 12:44 [From Neosporin (rwg-vvj-uapgq)] Antihistamines - Alkylamine Allergy PT UNSURE Verified 11/22/22 12:44 OF REACTION diphenhydramine Allergy PT UNSURE Verified 11/22/22 12:44 [From Jessica] OF REACTION Family History Unknown Thyroid disorder [...] her renal function is normal, no significant [place] abnormalities and she has a mild anemia [...] (Auto) 64.5 Lymph % (Auto) 15.4 L Keith % (Auto) 12.3 H Eos % (Auto) [...] Provider] - Disposition Disposition: Acute Care Hospital [facility] What to do if you have Problems For any increased pain, shortness of breath, bleeding, nausea or vomiting, chestpain, or any unexpected problems, contact your Primary Care Provider. Call [facility] ([phone]) or report to the closest Emergency Room. Call 911 if necessary. 11/22/22 1654 <Electronically signed by Katie Randle DO> Cosigner Signature (if applicable): CC: Dr. Erica Richardson DO ~ Signed [facility] Work Phone: 1(169) 134-227208-03-2023 History of Present illness Narrative* Katarzyna Nance [...] 22, 2022 12:08 PM [facility] encounter[facility] History of Present illness Narrative* Eliel Blount APRN.WINDOW FRAMER - 11/22/2022 11:57 AM EDT Subjective HPI [...] - Alkylamine, Benadryl [Diphenhydramine Hcl], and Neosporin [Hunipaxw-Kwwfnqdren-Uicbzcxqt] MEDICATIONS oxyCODONE IR (ROXICODONE) 5 mg immediate [...] agrees with plan of care. Eliel Blount APRN.WINDOW FRAMER documented in this encounterAvita [facility]03-24-2023 History of Present illness Narrative* John Erazo RN - 07/13/2022 7:40 AM EDT Patient is here for IVAD port flush per Nursing [place] protocol. IVAD is located in right upper chest. Site cleansed with Chloraprep IVAD accessed with a #20 gauge 3/4 non-coring Gripper needle Blood Return: Good Flushed with: 20 ml Normal Saline and 5 ml Heparin Lock Flush Non-coring needle removed. Paper tape applied to puncture site. Port site negative for redness, edema or tenderness. Patient tolerated procedure well. documented in this encounterAv[facility]03-13-[address] Ly [facility] July 02, 2022 8:37pm Note Date/Time July 02, 2022 5:2 4pm [facility] Medical Records Department [address] [place] [id number] Emergency Department Summary 07/02/22 MR#: [id number] Acct: [id number] Name: AIDEN FIELDS Rep #:[id number] : 1945 76 From: Sim Ly MD PCP: Dr. 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 [facility] Medical History Alcohol abuse Alcohol intoxication Anemia [...] Unknown Unknown Verified 07/02/22 16:16 [From Neosporin (fui-obu-uxjpl)] neomycin Allergy Unknown Unknown Verified 07/02/22 16:16 [From Neosporin (usc-qqb-nwioy)] polymyxin B Allergy Unknown Unknown Verified 07/02/22 16:16 [From Neosporin (rfl-zdb-uagzd)] Antihistamines - Alkylamine Allergy PT UNSURE Verified [...] She does have an appointment with her library acquisitions technician already in about 3 days. She was [...] removal Activity Restrictions/Additional Instructions: Follow-up with your library acquisitions technician as scheduled. Disposition Disposition: Home, Self Care What to do if you have Problems For any increased pain, shortness of breath, bleeding, nausea or vomiting, chestpain, or any unexpected problems, contact your Primary Care Provider. Call [facility] ([phone]) or report to the closest Emergency Room. Call 911 if necessary. 07/02/222036 <Electronically signed by Sim Ly MD> Cosigner Signature (if applicable): CC: Dr. Erica Richardson DO ~ Signed [facility] Work Phone: 1([phone]) 886-104102-24-2023 History of Present illness Narrative* Radha Suarez RN - 06/15/2022 2:42 PM EST Patient is here for IVAD port flush per Nursing Poc[place] protocol. IVAD is located in right upper chest. Site cleansed with Chloraprep IVAD accessed with a #20 gauge 3/4 non-coring Gripper needle Blood Return: Good Flushed with: 20 ml Normal Saline and 5 ml Heparin Lock Flush Non-coring needle removed. Paper tape applied to puncture site. Port site negative for redness, edema or tenderness. Patient tolerated procedure well. documented in this encounterAvita [facility]01-04-2023 History of Present illness Narrative* Radha Suarez RN - 04/25/2022 1:35 PM EST Patient is here for IVAD port flush per Nursing Poc[place] protocol. IVAD is located in right upper chest. Site cleansed with Chloraprep IVAD accessed with a #20 gauge 3/4 non-coring Gripper needle Blood Return: Good Flushed with: 20 ml Normal Saline and 5 ml Heparin Lock Flush Non-coring needle removed. Paper tape applied to puncture site. Port site negative for redness, edema or tenderness. Patient tolerated procedure well. documented in this encounterAvita [facility]09-20-2022 [facility]09-20-2022 History of Present illness Narrative* All Tsang MD - 01/09/2022 1:15 PM EDT NEUROSURGERY FOLLOW UP OFFICE NOTE Dr. All Tsang MD, [facility] Date of visit: January 09, 2022 Patient Name: Ms.Barbara John Fields Date of : 1945 Current Age: [age] year old Sex: female MRN/E# [id number] Last Office Visit: 11/03/2021 Chief Complaint: Patient presents with: Established Patient SUBJECTIVE: The patient presents as a follow-up with imaging (MRI B) for evaluation. This is a 76-year-old female with a history of breast cancer and melanoma who was seen in consult at [facility] on 10/07/[address] Delgado after a [...] activity. She was residing in a senior living and was working with physical therapy given [...] CTR VAD W/SUBQ PORT AGE 6 YR/> 3-03-04 RIGHT IJ MAST MODF RAD W/AX LYMPH [...] symptoms. This note was partially generated using [employer] voice recognition system, and there may be some incorrect words, spellings, and punctuation that were not noted in checking the note before saving. documented in this encounterAvita [facility]09-15-2022 History of Present illness Narrative* RT Juan(R) - 01/04/2022 1:40 PM EDT Radiology Service [...] Intact, Site disposition Discontinued SIGNED BY: RT Juan(Ashlie) January 04, 2022 2:02 PM documented in this encounterAvita Health [facility]09-14-2022 Miscellaneous Notes* Telephone Encounter - Tsering Cobb [facility] - 01/03/2022 12:19 PM EDT Patient has been scheduled for port access at 1:30 pm tomorrow and I did let patient's nurse at [facility] know this, she confirmed patient's arrival time. Tsering Cobb Pss * Telephone Encounter - KATIE Rivas - 01/03/2022 10:55 AM EDT Pt would like to use port for appt on 01/04/22 for MRI @ 1:40pm Please call pt to let them know what time to come in please documented in this encounterAvita Health [facility]07-15-2022 [facility]07-14-2022 [facility]07-14-2022 History of Present illness Narrative* Denys Bolden PA-C - 11/02/2021 3:17 PM EDT Images from the original note were not included. Trauma Clinic Note SERVICE DATE: 11/02/2021 Trauma Service Pager: For questions or concerns Mon-Fri 6a-5p please page [phone]. After 5pm and on Weekends and Holidays, please page [phone] if in ICU or [phone] if on RNF. SUBJECTIVE: Patient presents to the trauma clinic with her daughter. She came from her [facility] facility. She is here for rib plating [...] GLF on ASA on 10/06/2021 (transfer from [place]) Traumatic Injuries: 1. Right frontal IPH 2. [...] 1. 10/06/2021 - Left chest tube placement ([place]) 2. 10/09/2021 - VATS, rib plating (Dr. [...] November 02, 2021 TIME: 3:26 PM Pager: [phone] (text page) documented in this encounterAvita Health [facility]07-14-2022 [facility]07-14-2022 Instructions* Patient Instructions* Denys Bolden PA-C [...] another 2 viewchest x-ray documented in this encounterAvita Health [facility]07-14-2022 History of Present illness Narrative* RT [...] 02, 2021 12:30 PM documented in this encounterAvita [facility]07-11-2022 History of Present illness Narrative* RT [...] 30, 2021 3:21 PM documented in this encounterAvita Health [facility]07-01-2022 Miscellaneous Notes* Telephone Encounter - Eva Castillo - 10/20/2021 9:45 AM EDT Left message with day and time of scheduled follow up appointments. Eva Dee Pss documented in this encounterAvita Health [facility]06-28-2022 [facility]06-27-2022 [facility]06-26-2022 [facility]06-25-2022 [facility]06-24-2022 [facility]06-24-2022 [facility]06-23-2022 Note [facility]06-23-2022 Miscellaneous Notes* Telephone Encounter - Aiden Alanis LPN - 10/12/2021 4:30 PM EDT Pt's Sister Sami(a psych nurse) from [place] called to update Dr Santos or Stalin [...] psych eval. Sami can be reached at [phone] . I called and notified Stalin Grimaldo PAC who isgoing to talk to pt and the sister that is POShiva that is at the hospital now. BCjone BRAVO documented in this encounterAvita Health [facility]06-23-2022 [facility]06-22-2022 [facility]06-22-2022 [facility]06-21-2022 [facility]06-21-2022 [facility]06-21-2022 [facility]06-21-2022 Note [facility]06-20-2022 [facility] 10-09-2021 [facility]06-20-2022 [facility]06-20-2022 [facility]06-20-2022 [facility]06-20-2022 NoteHNO ID: [id number] Author: Medhat Silveira RN Service: ? Author Type: Registered Nurse Type: Nursing Progress Note Filed: 10/09/2021 2:22 AM Note Text: Pt up to bsc with assist of 1 unable to void will bladder [facility]06-19-2022 [facility]06-19-2022 [facility]06-19-2022 [facility]06-18-2022 Note [facility]03-23-2022 History of Present illness Narrative* [...] ROUTINE Nicho Johnson MD documented in this encounterAvita Health [facility]11-26-2021 History of Present illness Narrative* Katarzyna Nance, RT(R) - 03/17/2021 2:30 PM EST Radiology [...] 17, 2021 2:30 PM documented in this encounterAvita Health [facility]03-28-2013 History of Past illness Narrative* Problem Noted Date Resolved Date 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 10/03/2012 Breast cancer 07/03/2012 02/11/2013 documented as of this encounter (statuses as of 07/17/2021) [place] [id number] History of Past illness Narrative* Problem Noted Date Resolved Date 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 10/03/2012 Breast cancer 07/03/2012 02/11/2013 documented as of this encounter (statuses as of 08/01/2021) [place] [id number] History of Past illness Narrative* Problem Noted Date Resolved Date 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 10/03/2012 Breast cancer 07/03/2012 02/11/2013 documented as of this encounter (statuses as of 08/29/2021) [place] [id number] History of Past illness Narrative* Problem Noted Date Resolved Date 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 10/03/2012 Breast cancer 07/03/2012 02/11/2013 documented as of this encounter (statuses as of 10/03/2021) [place] [id number] History of Past illness Narrative* Problem Noted Date Resolved Date 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 10/03/2012 Breast cancer 07/03/2012 02/11/2013 documented as of this encounter (statuses as of 10/11/2021) [place] [id number] History of Past illness Narrative* Problem Noted Date Resolved Date 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 10/03/2012 Breast cancer 07/03/2012 02/11/2013 documented as of this encounter (statuses as of 10/12/2021) [place] [id number] History of Past illness Narrative* Problem Noted Date Resolved Date 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 10/03/2012 Breast cancer 07/03/2012 02/11/2013 documented as of this encounter (statuses as of 10/20/2021) [address]28-2013 History of Past illness Narrative* Problem Noted Date Resolved Date 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 10/03/2012 Breast cancer 07/03/2012 02/11/2013 documented as of this encounter (statuses as of 10/31/2021) [place] [id number] History of Past illness Narrative* Problem Noted Date Resolved Date 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 10/03/2012 Breast cancer 07/03/2012 02/11/2013 documented as of this encounter (statuses as of 11/02/2021) [place] [id number] History of Past illness Narrative* Problem Noted Date Resolved Date 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 10/03/2012 Breast cancer 07/03/2012 02/11/2013 documented as of this encounter (statuses as of 11/03/2021) [place] [id number] History of Past illness Narrative* Problem Noted Date Resolved Date 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 10/03/2012 Breast cancer 07/03/2012 02/11/2013 documented as of this encounter (statuses as of 01/03/2022) [place] [id number] History of Past illness Narrative* Problem Noted Date Resolved Date 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 10/03/2012 Breast cancer 07/03/2012 02/11/2013 documented as of this encounter (statuses as of 01/04/2022) [place] [id number] History of Past illness Narrative* Problem Noted Date Resolved Date 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 10/03/2012 Breast cancer 07/03/2012 02/11/2013 documented as of this encounter (statuses as of 01/05/2022) [place] [id number] History of Past illness Narrative* Problem Noted Date Resolved Date 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 10/03/2012 Breast cancer 07/03/2012 02/11/2013 documented as of this encounter (statuses as of 01/09/2022) [place] [id number] History of Past illness Narrative* Problem Noted Date Resolved Date 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 10/03/2012 Breast cancer 07/03/2012 02/11/2013 documented as of this encounter (statuses as of 03/28/2022) [place] [id number] History of Past illness Narrative* Problem Noted Date Resolved Date 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 10/03/2012 Breast cancer 07/03/2012 02/11/2013 documented as of this encounter (statuses as of 04/27/2022) [address]28-2013 History of Past illness Narrative* Problem Noted Date Resolved Date 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 10/03/2012 Breast cancer 07/03/2012 02/11/2013 documented as of this encounter (statuses as of 06/15/2022) [place] [id number] History of Past illness Narrative* Problem Noted Date Resolved Date 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 10/03/2012 Breast cancer 07/03/2012 02/11/2013 documented as of this encounter (statuses as of 07/13/2022) [place] [id number] History of Past illness Narrative* Problem Noted Date Resolved Date 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 10/03/2012 Breast cancer 07/03/2012 02/11/2013 documented as of this encounter (statuses as of 08/10/2022) [place] [id number] History of Past illness Narrative* Problem Noted Date Diagnosed Date Resolved Date 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 10/03/2012 Breast cancer 07/03/2012 02/11/2013 documented as of this encounter (statuses as of 11/22/2022) [place] [id number] History of Past illness Narrative* Problem Noted Date Diagnosed Date Resolved Date 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 10/03/2012 Breast cancer 07/03/2012 02/11/2013 documented as of this encounter (statuses as of 11/24/2022) [facility] of [facility] illness Narrative* Problem Noted Date Diagnosed Date Resolved Date 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 10/03/2012 Breast cancer 07/03/2012 02/11/2013 documented as of this encounter (statuses as of 08/06/2023) [facility] complaint+Reason for visit Narrative* Chief Complaint LABS/MANDEEP 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 [facility] LABWORK [facility] LABWORK Reason for Visit Hypoparathyroidism a fter procedure Hypothyroidism [facility] Work Phone: [place] complaint+Reason for visit Narrative* Chief Complaint LABS/MANDEEP 1 Y FU 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 [facility] LABWORK [facility] LABWORK Reason for Visit Hypoparathyroidism a fter procedure Hypothyroidism [facility] Work Phone: chief complaint+Reason for visit Narrative* Chief Complaint 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 [facility] LABWORK [facility] LABWORK [facility] LABWORK LAB WORK [facility]CI LABWORK [facility]CI LAB WORK [facility] Work Phone: Chipf complaint+Reason for visit Narrative* Chief Complaint 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 [facility] LABWORK [facility] LABWORK [facility] LABWORK LAB WORK [facility]CI LABWORK LAB WORK [facility] LABWORK FCI LAB WORK LABWORK [facility] Work Phone: chief complaint+Reason for visit Narrative* Chief Complaint 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 [facility] LABWORK [facility] LABWORK [facility] LABWORK LAB WORK FCI LABWORK LAB WORK FCI LABWORK FCI LAB WORK [facility] LABWORK LABWORK [facility]CI LAB WORK [facility] Work Phone: Chi[place] complaint+Reason for visit Narrative* Chief Complaint 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 [facility]CI LABWORK [facility] LABWORK [facility] LABWORK LAB WORK FCI LABWORK LAB WORK FCI LABWORK FCI LAB WORK [facility]CI LABWORK [facility] LABWORK LABWORK [facility]CI LAB WORK [facility] Work Phone: Chief complaint+Reason for visit Narrative* Chief Complaint 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 [facility]CI LABWORK [facility] LABWORK [facility] LABWORK LAB WORK FCI LABWORK LAB WORK FCI LABWORK FCI LAB WORK [facility] LABWORK [facility]CI LABWORK LABWORK FCI LAB WORK [facility]CI LAB WORK [facility] Work Phone: Chief complaint+Reason for visit Narrative* Chief Complaint 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 [facility] LABWORK [facility] LABWORK [facility] LABWORK LAB WORK FCI LABWORK LAB WORK FCI LABWORK FCI LAB WORK [facility] LABWORK [facility]CI LABWORK LABWORK [facility]CI LAB WORK [facility] LAB WORK [facility] Work Phone: Chief complaint+Reason for visit Narrative* Chief Complaint 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 [facility] LABWORK [facility] LABWORK [facility] LABWORK LAB WORK [facility]CI LABWORK LAB WORK [facility]CI LABWORK [facility]CI LAB WORK [facility] LABWORK [facility] LABWORK LABWORK FCI LAB WORK LABWORK [facility] LAB WORK [facility] Work Phone: Chief complaint+Reason for visit Narrative* Chief Complaint 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 [facility] LABWORK [facility] LABWORK [facility] LABWORK LAB WORK [facility]CI LABWORK LAB WORK FCI LABWORK FCI LAB WORK [facility] LABWORK [facility] LABWORK LABWORK FCI LAB WORK LABWORK FCI LAB WORK FALL FCI LABWORK FCI LABWORK [facility] Work Phone: Chief complaint+Reason for visit Narrative* Chief Complaint 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 [facility] LABWORK [facility] LABWORK [facility] LABWORK LAB WORK [facility]CI LABWORK LAB WORK FCI LABWORK [facility]CI LAB WORK [facility] LABWORK [facility]CI LABWORK LABWORK FCI LAB WORK LABWORK FCI LAB WORK FALL FCI LABWORK FCI LABWORK [facility]CI LABWORK [facility]CI LAB WORK [facility] Work Phone: Chief complaint+Reason for visit Narrative* Chief Complaint 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 [facility]CI LABWORK [facility] LABWORK [facility] LABWORK LAB WORK FCI LABWORK LAB WORK FCI LABWORK FCI LAB WORK FCI LABWORK FCI LABWORK LABWORK FCI LAB WORK LABWORK FCI LAB WORK LABWORK FALL FCI LABWORK FCI LABWORK FCI LABWORK FCI LAB WORK [facility] Work Phone: Discharge summary Author James Tereletsky [facility] November 23, 2022 12:54pm Note Date/Time November 23, 2022 12: 44pm [facility] Medical Records Department [address] [place] [address] Instructions for Home/Discharge Instructions 11/23/22 1241 MR#: [id number] Acct: [id number] Name: AIDEN FIELDS Rep #:[id number] : 1945 77 From: James Lamar DO [...] can be placed): Home, Self Care 11/23/22 6824<Electronically signed by James Lamar DO>James Lamar DO CC: Dr. Erica Richardson DO; Dr. 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, estrogen receptor positive, unspecified site of breast (HCC)- Primary documented in this encounter [facility] note* Diagnosis Onset Date Resolution Status Hypoparathyroidism after procedure acute Hypothyroidism acute [facility] Work Phone: Evaluation note* Diagnosis Malignant neoplasm of left breast in female, estrogen receptor positive, unspecified site of breast (HCC)- Primary [facility]* Diagnosis SDH (subdural hematoma) (HCC)- Primary Subdural hemorrhage documented in this encounter [facility] note* Diagnosis SDH (subdural hematoma) (HCC) Subdural hemorrhage documented in this encounter [facility] note* Diagnosis Closed fracture of multiple ribs with flail chest with routine healing, subsequent encounter- Primary [facility]* Diagnosis Closed fracture of multiple ribs of left side, initial encounter Lung laceration, subsequent encounter documented in this encounter [facility] noteNo assessment information availableWGreene [facility] Work Phone: Evaluation note* Diagnosis Malignant neoplasm of left breast in female, estrogen receptor positive, unspecified site of breast (HCC)- Primary documented in this encounter [facility] note* Diagnosis SDH (subdural hematoma) (HCC) Subdural hemorrhage Cerebral hemorrhage (HCC) [facility]tracere[facility]H (subdural hematoma)- Primary Subdural hemorrhage Cerebral hemorrhage (HCC) Intracerebral hemorrhage documented in this encounter [facility] note* Diagnosis Malignant neoplasm of left breast in female, estrogen receptor positive, unspecified site of breast (HCC)- Primary documented in this encounter [facility] note* Diagnosis Malignant neoplasm of left breast in female, estrogen receptor positive, unspecified site of breast (HCC)- Primary documented in this encounter [facility] note* Diagnosis Onset Date Resolution Status Cough acute Hypoxia acute [facility] Work Phone: Evaluation note* Diagnosis Acute cough- Primary SOB (shortness of breath) Shortness of breath Suspected COVID-19 virus infection documented in this encounter [facility] note* Diagnosis Onset Date Resolution Status Cough acute Dyspnea on exertion acute Hypoxia acute [facility] Work Phone: Evaluation note* Diagnosis Onset Date Resolution Status Acute hypotension acute Acute hypoxic respiratory failure acute Creatinine elevation acute Encephalopathy due to infection acute Ketosis acute Pyuria acute SIRS (systemic inflammatory response syndrome) acute [facility] Work Phone: Evaluation note* Diagnosis History of breast cancer- Primary Personal history of malignant neoplasm of breast documented in this encounter [facility] note* Diagnosis Onset Date Resolution Status Acute hypotension resolved Creatinine elevation resolve d Encephalopathy due to infection resolved Ketosis resolved Pyuria resolved SIRS (systemic inflammatory response syndrome) resolved [facility] Work Phone: Evaluation note* Diagnosis History of breast cancer- Primary Personal history of malignant neoplasm of breast documented in this encounter [facility] note* Diagnosis Pre-operative examination- Primary Preoperative [...] [facility] Pre-operative examination- Primary Preoperative examination, [...] arm, subsequent encounter [facility] Diagnosis Onset Date Resolution Status Admit Date Closed displaced fracture of left clavicle acute February 09 1:13pm Left shoulder pain acute 2024 1:13pm [employer] [employer] Work Phone: History and physical note Author Aggie Bolton [facility] May 19, 2023 1:45am Note Date/Time May 19, 2023 1 :39am [facility] Medical Records Department [address] [place] [address] H&P Exam - Hospitalist 05/19/23 0135 MR#: [id number] Acct: [id number] Name: AIDEN FIELDS Rep #:[id number] : 1945 77 From: Aggie Bolton MD [...] of prior records who presents to the [facility] ED on 05/19/23 with significant [...] and azithromycin 500 mg IV x 1. [facility] Medical History (Updated 05/19/23 @ 01:44 by [...] Unknown Unknown Verified 05/18/23 23:29 [From Neosporin ([id number])] neomycin Allergy Unknown Unknown Verified 05/18/23 23:29 [From Neosporin ([id number])] polymyxin B Allergy Unknown Unknown Verified 05/18/23 23:29 [From Neosporin ([id number])] Antihistamines - Alkylamine Allergy PT UNSURE Verified [...] 89.8 H, Lymph % (Auto) 6.3 L, Keith % (Auto) 2.4, Eos % (Auto) 0.3, [...] Urine Clarity Cloudy, Urine pH6.0, Ur Specific Cantril 1.010, Urine Protein 100 H, Urine Glucose [...] review of prior recordswho presents to the [facility] ED on 05/19/23 with significant [...] prophylaxis: Heparin. Charges/Coding Visit Charges Inpatient E&M: 42194 Init Hosp L3 05/19/23 0145 <Electronically signed by Aggie Bolton MD> Cosigner Signature (if applicable): CC: Dr. Aggie Bolton MD; Dr. Erica Richardson DO~ Signed [facility] Work Phone: [facility] Work Phone: [facility] Discharge instructions Additional Instructions Follow-up with your library acquisitions technician as scheduled.[facility] Work Phone: Hospital Discharge instructions Additional Instructions Thank you for trusting us with your care today! Please take Tylenol (2 pills, 650 mg), ibuprofen (2 pills, 400 mg) every 6 hours as needed for pain and fever control. Please return to the emergency department if your symptoms change or worsen. Please follow with your primary care physician for further outpatient evaluation and management.[facility] Work Phone: Hospital Discharge instructions Additional Instructions Follow-up with Dr. Obregon in the outpatient setting. Wear the sling. Return with worsening symptoms or any [facility] Work Phone: Hospital Discharge instructions No data available for this section [facility] Progress note No data available for this section [facility] Reason for referral (narrative)* Diagnostic Procedure Only (Urgent) - Closed Specialty Diagnoses / Procedures Referred By Contac t Referred To Contact XR IMAGING Diagnoses Injury of left upper arm, subsequent encounter Procedures XR HUMERUS 2V AP/LAT LEFT X-RAY HUMERUS Earline Rebolledo APRN.WINDOW FRAMER [id number] [id number] [place] [address] Referral ID Status Reason Start Date Expiration Date V isits Requested Visits Authorized Closed Auto-Generate d Referral 03/17/2021 04/16/2022 1 1 [facility] for referral (narrative)No reason for referral information availableWGreene [facility] Work Phone: Reason for visit Narrative* Diagnostic Procedure Only (Urgent) - Closed Specialty Diagnoses / Procedures Referred By Contac t Referred To Contact XR IMAGING Diagnoses Injury of left upper arm, subsequent encounter Procedures XR HUMERUS 2V AP/LAT LEFT X-RAY HUMERUS Earline Rebolledo APRN.WINDOW FRAMER [id number] [phone] [place] [address] Referral ID Status Reason Start Date Expiration Date V isits Requested Visits Authorized Closed Auto-Generate d Referral 03/17/2021 04/16/2022 1 1 [facility] Summary Purpose Family History No Family [...] Documents on File Type Date Recorded 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 Education Worker Expl anation Advance Directive(s) 10/07/2021 4:42 AM Advance Directive(s) 06/13/2018 11:17 AM Advance Directive Response Recorded Date/ Time Living Will Yes October 06, 2021 9:38pm Power of Dispatcher Radio No October 06 9:38pm Advance Directive Response Recorded Date/ Time Name of Medical Power of Dispatcher Radio REED AZAR January 10, 2022 11:50am Living Will Yes January 10, 2022 11:50am Power of Dispatcher Radio Yes December 11:50am Advance Directive Response Recorded Date/ Time Living Will Yes March 09 8:51am Power of Dispatcher Radio Yes March 09, 2022 8:51am Name of Medical Power of Dispatcher Radio REED AZAR January 10, 2022 10:50am Advance Directive Response Recorded Date/ Time Living Will Yes March 09 8:51am Power of Dispatcher Radio Yes March 09, 2022 8:51am Advance Directive Response Recorded Date/ Time Name of Medical Power of Dispatcher Radio karol prieto July 02, 2022 5:04pm Living Will Yes July 02, 2022 5:04pm Power of Dispatcher Radio Yes July 02 5:04pm Advance Directive Response Recorded Date/ Time Name of Medical Power of Dispatcher Radio Reed Marx November 22, 2022 12:50pm Living Will Yes November 22, 2022 12:50pm Power of Dispatcher Radio Yes November 22 12:50pm Advance Directive Response Recorded Date/ Time Name of Medical Power of Dispatcher Radio Reed Marx November 22, 2022 6:25pm Living Will Yes November 22, 2022 6:25pm Power of Dispatcher Radio Yes November 22 6:25pm Advance Directive Response Recorded Date/ Time Living Will Yes November 22, 2022 5:25pm Power of Dispatcher Radio Yes November 22 5:25pm Advance Directive Response Recorded Date/ Time Name of Medical Power of Dispatcher Radio Reed Marx May 19, 2023 3:16am Living Will Yes May 19 3:16am Power of Dispatcher Radio Yes May 19, 2023 3:16am Advance Directive Response Recorded Date/ Time Name of Medical Power of Dispatcher Radio Reed Marx May 19, 2023 4:16am Living Will No August 20, 2023 12:29pm Power of Dispatcher Radio No August 19 12:29pm Advance Directive Response Recorded Date/ Time Living Will No July 04, 2024 1:18pm Power of Dispatcher Radio No July 04 1:18pm Advance Directive Response Recorded Date/ Time Living Will No July 04, 2024 1:18pm Do you have a Healthcare Power of Dispatcher Radio? No July 04, 2024 1:18pm Advance Directive Response Recorded Date/ Time Living Will No July 04, 2024 1:18pm Do you have a Healthcare Power of Dispatcher Radio? No July 04, 2024 1:18pm Do you have a Healthcare Power of Dispatcher Radio? Yes September 22, 2024 11:53pm Name of Medical Power of Dispatcher Radio Reed Burris September 22, 2024 11:53pm Advance Directive Response Recorded Date/ Time Do you have a Healthcare Power of Dispatcher Radio? Yes September 26, 2024 1:40pm Living Will No July 04, 2024 1:18pm Do you have a Healthcare Power of Dispatcher Radio? No July 04, 2024 1:18pm Do you have a Healthcare Power of Dispatcher Radio? Yes September 22, 2024 11:53pm Name of Medical Power of Dispatcher Radio Reed Burris September 22, 2024 11:53pm Advance Directive Response Recorded Date/ Time Living Will No July 04, 2024 1:18pm Do you have a Healthcare Power of Dispatcher Radio? No July 04, 2024 1:18pm Do you have a Healthcare Power of Dispatcher Radio? Yes September 22, 2024 8:06pm Advance Directive Response Recorded Date/ Time Do you have a Healthcare Power of Dispatcher Radio? Yes September 26, 2024 1:40pm Do you have a Healthcare Power of Dispatcher Radio? Yes September 22, 2024 11:53pm Name of Medical Power of Dispatcher Radio Reed Burris September 22, 2024 11:53pm Reason for Referral Status Reason Specialty Diagnoses / Procedures Referre d By Contact Referred To Contact Open Radiology Diagnoses Traumatic subdural hematoma with loss of consciousness of 30 minutes or less, subsequent encounter Procedures CT Head WO Contrast Nicho Thompson MD [address] [place] [id number] Specialty Diagnoses / Procedures Referred By Contac t Referred To Contact CT IMAGING Diagnoses SDH (subdural hematoma) (HCC) Procedures CT BRAIN WO IVCON CT HEAD/BRAIN W/O CONTRAST MATERIAL Yolie Lowe PA-C [address] [place] [id number] Referral ID Status Reason Start Date Expiration Date Visits Requested Visits Authorized [id number] Pending Review Auto-Generat ed Referral 10/25/2021 11/10/2022 1 1 Referral ID Status Reason Start Date Expiration Date V isits Requested Visits Authorized [id number] Closed Auto-Generate d Referral 10/25/2021 11/10/2022 1 1 Specialty Diagnoses / Procedures Referred By Contac t Referred To Contact MR IMAGING Diagnoses SDH (subdural hematoma) (HCC) Cerebral hemorrhage (HCC) Procedures MRI BRAIN WO/W IVCON MRI BRAIN BRAIN STEM W/O W/CONTRAST MATERIAL Sherice Rosenberg, RIO.WINDOW FRAMER [address] [facility] [place] [address] Mr Imaging Referral ID Status Reason Start Date Expiration Date V isits Requested Visits Authorized [id number] Closed Auto-Generate d Referral 11/03/2021 12/03/2022 1 [...] 9:44 AM EST Family Communication Number Called: [phone] Name of Designated Family Early Childhood Education Worker: Reed Fileds Relationship to Patient: daughter Phone Call Outcome: I spoke with the individual listed above. 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 [...] Training, Home Management Training OutComes Score AM-[facility] Daily Activity Inpatient How much help for [...] much help for eating meals?: None [facility] Inpatient Daily Activity Raw Score: 20 [facility] Inpatient ADL T-Scale Score : 42.03 ADL Inpatient CMS 0-100% Score: 38.32 ADL Inpatient CMS G-Code Modifier : CJ AM-PAC Score AM-[facility] Inpatient Daily Activity Raw Score: 20 (04/17/20911) [facility] Inpatient ADL T-Scale Score : 42.03 (04/17/20911) [...] Time Out 0826 Minutes 20 Variance: 10(PT Rishabh) Goals and/or treatment plan was established in collaboration with patient/family/other representatives. Patient's Occupational Therapy Plan of Care [facility] This provider wore an N95, face shield, and gloves for the duration of the session with this pt. Yara Fletcher, OTR/L * Parvez Bolden, PT - 04/17/2020 9:05 AM EST Physical Therapy Facility/Department: [facility] ICU T2 Initial Assessment NAME: Aiden Fields : 1945 Date of Service: 04/17/2020 Discharge Recommendations: (facility based therapy) Assessment Body structures, Functions, Activity limitations: Decreased functional mobility ;Decreased strength;Decreased balance;Decreased safe awareness;Decreased endurance Assessment: Pt admitted for Small R temporal SDH without mass effect after fall. 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 Goals and/or treatment [...] 2:38 PM EST Speech Language Pathology Facility/Department: [facility] ICU T2 CLINICAL BEDSIDE SWALLOW EVALUATION [...] Injury: Fall SH Mechanism of Arrival:Transfer from [place] Chief Complaint: headache History of Traumatic Injury: [...] lifealert. EMS cam and brought her to [facility]. Work up at [...] was repair and she was transferred to [facility] for further management. Upon arriaval she [...] if any concerns arise. Treatment Plan Requires 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 Intervention: No Duration/Frequency of Treatment: na Recommended Diet and Intervention Diet Solids Recommendation: Regular Liquid Consistency Recommendation: Thin General Chart Reviewed: Yes Behavior/Cognition: Alert;Cooperative - patient lives alone - spouse moved to [facility] 9 months ago due to dementia. Patient [...] Safety Devices in place: Yes Therapy Time 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 Individual Minutes Time In: 1415 Time Out: 1430 Minutes: 15 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 Total Treatment Time Total Treatment Time: 15 Char Walsh MS, CCC/ 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 04/16/2020 2:38 PM An N95 mask, a [...] Course Note Department of Trauma / Criti [facility] Discharge Summary Name: Aiden Fields Date: 04/20/2020 [...] Hypoparathyroidism a fter procedure Hypothyroidism Chief Complaint [facility] LABWORK [facility] LABWORK [facility] LAB WORK [facility] LAB WORK [facility] LABWORK [facility] LAB WORK FCI LABWORK [facility] LABWORK LABWORK FCI LAB WORK LABWORK FCI LAB WORK LABWORK FALL FCI LABWORK FCI LABWORK FCI LABWORK FCI LAB WORK FCI LAB WORK Chief Complaint LAB WORK FCI LABWORK LAB WORK FCI LABWORK FCI LAB WORK FCI LABWORK FCI LABWORK LABWORK FCI LAB WORK LABWORK FCI LAB WORK LABWORK FALL FCI LABWORK FCI LABWORK FCI LABWORK FCI LAB WORK FCI LAB WORK FCI LAB WORK FOLLOW UP Chief Complaint FCI LABWORK LAB WORK FCI LABWORK FCI LAB WORK FCI LABWORK FCI LABWORK LABWORK FCI LAB WORK LABWORK FCI LAB WORK LABWORK FALL FCI LABWORK FCI LABWORK FCI LABWORK FCI LAB WORK FCI LAB WORK FCI LAB WORK FCI LABWORK FOLLOW UP Chief Complaint FCI LAB WOR K LABWORK FALL FCI LABWORK FCI LABWORK FCI LABWORK FCI LAB WORK FCI LAB WORK FCI LAB WORK FCI LABWORK FOLLOW UP FCI LABWORK Chief Complaint FCI LAB WOR K [facility]CI LABWORK FOLLOW UP [facility]CI LABWORK PAIN IN RIGHT THIGH Chief Complaint FOLLOW UP [facility] LABWORK PAIN IN RIGHT THIGH RIGHT THIGH MASS Chief Complaint [facility] LABWORK PAIN IN RIGHT THIGH RIGHT THIGH [...] am LABWORK October 26, 2024 5:00a m LABS November 25, 2024 10: 34pm Chief Complaint Admit Date ADULT FTT, UTI, MILD RHABDO September 22 [...] am LABWORK October 26, 2024 5:00a m LABS November 25, 2024 10: 34pm Strain of muscle(s) and tendon(s) of the rotator c January 16, 2025 9:57am Chief Complaint Admit Date LABS November 25, 2024 10: 34pm Strain of muscle(s) and tendon(s) of the rotator c January 16, 2025 9:57am LEFT ARM February 09, 2025 1 :13pm Reason for Visit Admit Date Closed displaced fracture of left clavic le February 09, 2025 1:13pm Left shoulder pain February 09, 2025 1 :13pm Additional Source Comments INFORMATION SOURCE (unrecogn ized section and content) DATE CREATED AUTHOR 09/06/2019 [facility] ([place]) DATE CREATED AUTHOR AUTHOR'S ORGANIZ ATION 05/05/2020 [facility] DATE CREATED AUTHOR AUTHOR'S ORGANIZ ATION 01/21/2022 [facility] DATE CREATED AUTHOR AUTHOR'S ORGANIZ ATION 09/22/2023 [facility] DATE CREATED AUTHOR AUTHOR'S ORGANIZ ATION 02/03/2025 [facility] DATE CREATED AUTHOR AUTHOR'S ORGANIZ ATION 02/10/2025 [facility] DATE CREATED AUTHOR AUTHOR'S ORGANIZ ATION 02/28/2025 [facility] Source Comments (unrecognize d section and content) In the event this informatio n is protected by the Federal Confidentiality of Alcohol and Drug Abuse Patient Records regulations: The Federal rules restrict any use of the information to criminally investigate or prosecute any alcohol or drug abuse patient.[facility] the event this information is protected by the Federal Confidentiality of Alcohol and Drug Abuse Patient Records regulations: The Federal rules restrict any use of the information to criminally investigate or prosecute any alcohol or drug abuse patient.[facility] the event this information is protected by the Federal Confidentiality of Alcohol and Drug Abuse Patient Records regulations: The Federal rules restrict any use of the information to criminally investigate or prosecute any alcohol or drug abuse patient.[facility] the event this information is protected by the Federal Confidentiality of Alcohol and Drug Abuse Patient Records regulations: The Federal rules restrict any use of the information to criminally investigate or prosecute any alcohol or drug abuse patient.[facility] Hospital[facility] the event this information is protected by the Federal Confidentiality of Alcohol and Drug Abuse Patient Records regulations: The Federal rules restrict any use of the information to criminally investigate or prosecute any alcohol or drug abuse patient.[facility] Hospital[facility] the event this information is protected by the Federal Confidentiality of Alcohol and Drug Abuse Patient Records regulations: The Federal rules restrict any use of the information to criminally investigate or prosecute any alcohol or drug abuse patient.[facility] Hospital[facility] the event this information is protected by the Federal Confidentiality of Alcohol and Drug Abuse Patient Records regulations: The Federal rules restrict any use of the information to criminally investigate or prosecute any alcohol or drug abuse patient.[facility] Hospital[facility] the event this information is protected by the Federal Confidentiality of Alcohol and Drug Abuse Patient Records regulations: The Federal rules restrict any use of the information to criminally investigate or prosecute any alcohol or drug abuse patient.[facility] Hospital[facility] the event this information is protected by the Federal Confidentiality of Alcohol and Drug Abuse Patient Records regulations: The Federal rules restrict any use of the information to criminally investigate or prosecute any alcohol or drug abuse patient.[facility] Hospital[facility] the event this information is protected by the Federal Confidentiality of Alcohol and Drug Abuse Patient Records regulations: The Federal rules restrict any use of the information to criminally investigate or prosecute any alcohol or drug abuse patient.[facility] Hospital[facility] the event this information is protected by the Federal Confidentiality of Alcohol and Drug Abuse Patient Records regulations: The Federal rules restrict any use of the information to criminally investigate or prosecute any alcohol or drug abuse patient.[facility] Hospital[facility] the event this information is protected by the Federal Confidentiality of Alcohol and Drug Abuse Patient Records regulations: The Federal rules restrict any use of the information to criminally investigate or prosecute any alcohol or drug abuse patient.[facility] Hospital[facility] the event this information is protected by the Federal Confidentiality of Alcohol and Drug Abuse Patient Records regulations: The Federal rules restrict any use of the information to criminally investigate or prosecute any alcohol or drug abuse patient.[facility] Hospital[facility] the event this information is protected by the Federal Confidentiality of Alcohol and Drug Abuse Patient Records regulations: The Federal rules restrict any use of the information to criminally investigate or prosecute any alcohol or drug abuse patient.[facility] Hospital[facility] the event this information is protected by the Federal Confidentiality of Alcohol and Drug Abuse Patient Records regulations: The Federal rules restrict any use of the information to criminally investigate or prosecute any alcohol or drug abuse patient.[facility] Hospital[facility] the event this information is protected by the Federal Confidentiality of Alcohol and Drug Abuse Patient Records regulations: The Federal rules restrict any use of the information to criminally investigate or prosecute any alcohol or drug abuse patient.[facility] Hospital[facility] the event this information is protected by the Federal Confidentiality of Alcohol and Drug Abuse Patient Records regulations: The Federal rules restrict any use of the information to criminally investigate or prosecute any alcohol or drug abuse patient.[facility] Hospital[facility] the event this information is protected by the Federal Confidentiality of Alcohol and Drug Abuse Patient Records regulations: The Federal rules restrict any use of the information to criminally investigate or prosecute any alcohol or drug abuse patient.[facility] [facility] the event this information is protected by the Federal Confidentiality of Alcohol and Drug Abuse Patient Records regulations: The Federal rules restrict any use of the information to criminally investigate or prosecute any alcohol or drug abuse patient.[facility] the event this information is protected by the Federal Confidentiality of Alcohol and Drug Abuse Patient Records regulations: The Federal rules restrict any use of the information to criminally investigate or prosecute any alcohol or drug abuse patient.[facility] the event this information is protected by the Federal Confidentiality of Alcohol and Drug Abuse Patient Records regulations: The Federal rules restrict any use of the information to criminally investigate or prosecute any alcohol or drug abuse patient.[facility] the event this information is protected by the Federal Confidentiality of Alcohol and Drug Abuse Patient Records regulations: The Federal rules restrict any use of the information to criminally investigate or prosecute any alcohol or drug abuse patient.[facility] the event this information is protected by the Federal Confidentiality of Alcohol and Drug Abuse Patient Records regulations: The Federal rules restrict any use of the information to criminally investigate or prosecute any alcohol or drug abuse patient.[facility] the event this information is protected by the Federal Confidentiality of Alcohol and Drug Abuse Patient Records regulations: The Federal rules restrict any use of the information to criminally investigate or prosecute any alcohol or drug abuse patient.[facility] the event this information is protected by the Federal Confidentiality of Alcohol and Drug Abuse Patient Records regulations: The Federal rules restrict any use of the information to criminally investigate or prosecute any alcohol or drug abuse patient.[facility] Reason for Visit (unrecogniz ed section [...] W/O CONTRAST MATERIAL Yolie Lowe PA-C [address] [place] [address] Ct Imaging Referral ID Status Reason Start Date Expiration Date V isits Requested Visits Authorized [id number] Closed Auto-Generate d Referral 10/25/2021 11/10/2022 1 1 Reason Comments Post Op fu rib fx and pneumo thorax, rib plating Reason Comments Radio Gen RMP Specialty Diagnoses / Procedures Referred By Contac t Referred To Contact MR IMAGING Diagnoses SDH (subdural hematoma) (HCC) Cerebral hemorrhage (HCC) Procedures MRI BRAIN WO/W IVCON MRI BRAIN BRAIN STEM W/O W/CONTRAST MATERIAL Sherice Rosenberg, RIO.WINDOW FRAMER [address] [place] [address] Mr Imaging Referral ID Status Reason Start Date Expiration Date V isits Requested Visits Authorized [id number] Closed Auto-Generate d Referral 11/03/2021 12/03/2022 1 1 Reason Comments Established Patient Reason Comments Cough Cough x 3 weeks Reason Comments Results Care Teams (unrecognized sec tion and content) Heel Coverer Machine Operator Relationship Specialty Start Date End Date Erica Richardson, DO [address] [place] [address] PCP - General Family Practice 02/15/17 Heel Coverer Machine Operator Relationship Specialty Start Date End Date Erica Richardson DO [address] [place] [address] PCP - General Family Practice 02/15/17 Heel Coverer Machine Operator Relationship Specialty Start Date End Date Erica Richardson DO [address] [place] [address] PCP - General Family Practice 02/15/17 Heel Coverer Machine Operator Relationship Specialty Start Date End Date Erica Richardson DO [address] [place] [address] PCP - General Family Practice 02/15/17 Heel Coverer Machine Operator Relationship Specialty Start Date End Date Erica Richardson DO [address] [place] [address] PCP - General Family Practice 02/15/17 Heel Coverer Machine Operator Relationship Specialty Start Date End Date Erica Richardson DO [address] [place] [address] PCP - General Family Practice 02/15/17 Heel Coverer Machine Operator Relationship Specialty Start Date End Date Erica Richardson DO [address] [place] [address] PCP - General Family Practice 02/15/17 Heel Coverer Machine Operator Relationship Specialty Start Date End Date Erica Richardson DO [address] [place] [address] PCP - General Family Practice 02/15/17 Heel Coverer Machine Operator Relationship Specialty Start Date End Date Erica Richardson DO [address] [place] [address] PCP - General Family Practice 02/15/17 Heel Coverer Machine Operator Relationship Specialty Start Date End Date Erica Richardson DO [address] [place] [address] PCP - General Family Medicine 02/15/17 Heel Coverer Machine Operator Relationship Specialty Start Date End Date Erica Richardson DO [address] [place] [address] PCP - General Family Medicine 02/15/17 Team Status: Active Member Role Status Dates Dr. Erica Richardson DO Family Provider Active Dr. Erica Richardson DO Primary Care Provider Active Team Status: Inactive Member Role Status Dates Dr. Erica Richardson DO Primary Care Provider Active Aiden Mcgrath IRONWORKER APPRENTICE, IRONWORKER APPRENTICE-C Attending Provider Active Team Status: Active Member [...] Primary Care Provider, Attending P rovider Active Heel Coverer Machine Operator Relationship Specialty Start Date End Date Adelaida Richardsona ShivaDO [address] [place] [address] PCP - General Family Medicine 02/15/17 Team [...] Inactive Member Role Status Dates Dr. Erica Malys , DO Primary Care Provider Active Dr. Sim Ly MD Attending Provider, Emergency Provider Active Team Status: Active Member Role Status Dates Dr. Erica Richardson DO Primary Care Provider Active Dr. Katie Randle DO Emergency Provider Active Dr. Bandar Chanel MD Admit Provider, Attending Provi alexander Active Heel Coverer Machine Operator Relationship Specialty Start Date End Date Erica Richardson DO [address] [place], [place] [id number] PCP - [facility] Medicine 02/15/17 Team Status: Active Member [...] Dr. James Lamar DO Attending Provider Active Heel Coverer Machine Operator Relationship Specialty Start Date End Date Adelaida Richardsonshiva ShannonDO [address] [place], [place] [address] [facility] - [facility] Medicine 02/15/17 Team Status: Active Member [...] Inactive Member Role Status Dates Dr. Erica Richardsno DO Primary Care Provider Active Dr. Jorge Cardona MD Emergency Provider Active Dr. Aggie Bolton MD Admit Provider, Other Provider Active Dr. Froy Velázquez DO Attending Provider Active Dr. Vernon Osman MD Other Provider Active Heel Coverer Machine Operator Relationship Specialty Start Date End Date Debra Ericashiva Shannon DO [address] [place] [address] PCP - General Family Medicine 02/15/17 Team Status: Inactive Member Role Status Dates Dr. Erica Richardson DO Primary Care Provider Active Dr. Seb Bautista DO Emergency Provider Active Heel Coverer Machine Operator Relationship Specialty Start Date End Date Liboriohattie Ericashiva Shannon DO [address] [place] [address] PCP - General Family Medicine 02/15/17 Heel Coverer Machine Operator Relationship Specialty Start Date End Date LiborioErica kuhn DO [address] [place] [address] PCP - General Family Medicine 02/15/17 Heel Coverer Machine Operator Relationship Specialty Start Date End Date DebraErica DO [address] [place] [address] PCP - General Family Medicine 02/15/17 Team [...] 2024 End: September 28, 2024 Aiden Mcgrath IRONWORKER APPRENTICE, IRONWORKER APPRENTICE-C Attending Provider Active Start: September 28, 2024 [...] 2024 End: September 30, 2024 Aiden Mcgrath IRONWORKER APPRENTICE, IRONWORKER APPRENTICE-C Attending Provider Active Start: September 30, 2024 [...] 2024 End: October 01, 2024 Aiden Mcgrath IRONWORKER APPRENTICE, IRONWORKER APPRENTICE-C Attending Provider Active Start: October 01, 2024 [...] 2024 End: October 12, 2024 Aiden Mcgrath IRONWORKER APPRENTICE, IRONWORKER APPRENTICE-C Attending Provider Active Start: October 12, 2024 [...] November 13, 2024 End: November 13, 2024 Team Status: Inactive Member Role/Relationship Status [...] Active Start: September 28, 2024 Team Status: Inactive Member Role/Relationship Status Dates Dr. Sheyla Mcgee MD Primary Care Provider Active Start: September 28, 2024 End: September 28, 2024 Aiden Mcgrath NP IRONWORKER APPRENTICE-C Attending Provider Active Start: September 28, 2024 End: September 28, 2024 Team Status: Inactive Member Role/Relationship Status Dates Dr. Sheyla Mcgee MD Primary Care Provider Active Start: September 29, 2024 End: September 29, 2024 Dr. Sheyla Mcgee MD Attending Provider Active Start: September 29, 2024 End: September 29, 2024 Team Status: Inactive Member Role/Relationship Status Dates Dr. Sheyla Mcgee MD Primary Care Provider Active Start: September 30, 2024 End: September 30, 2024 Aiden Mcgrath IRONWORKER APPRENTICE, IRONWORKER APPRENTICE-C Attending Provider Active Start: September 30, 2024 End: September 30, 2024 Team Status: Inactive Member Role/Relationship Status Dates Dr. Sheyla Mcgee MD Primary Care Provider Active Start: October 01, 2024 End: October 01, 2024 Aiden Mcgrath IRONWORKER APPRENTICE, IRONWORKER APPRENTICE-C Attending Provider Active Start: October 01, 2024 End: October 01, 2024 Team Status: Inactive Member Role/Relationship Status Dates Dr. Sheyla Mcgee MD Primary Care Provider Active Start: October 12, 2024 End: October 12, 2024 Aiden Mcgrath IRONWORKER APPRENTICE, IRONWORKER APPRENTICE-C Attending Provider Active Start: October 12, 2024 End: October 12, 2024 Team Status: Inactive Member Role/Relationship Status Dates Dr. Sheyla Mcgee MD Primary Care Provider Active Start: October 20, 2024 Dr. Shireen Marley MD Attending Provider Active Start: October 20, 2024 Team Status: Inactive Member Role/Relationship Status Dates Dr. Sheyla Mcgee MD Primary Care Provider Active Start: November 13, 2024 End: November 13, 2024 Dr. Erica Richardson DO Attending Provider Active St art: November 13, 2024 End: November 13, 2024 Dr. Erica Richardson DO Referring Provider Active St art: November 13, 2024 End: November 13, 2024 Team Status: Inactive Member Role/Relationship Status Dates Dr. Sheyla Mcgee MD Primary Care Provider Active Start: November 25, 2024 End: November 25, 2024 Dr. Erica Richardson DO Attending Provider Active St art: November 25, 2024 End: November 25, 2024 Team Status: Active Member Role/Relationship Status Dates Dr. Sheyla Mcgee MD Primary Care Provider Active Start: November 26, 2024 Dr. Erica Richardson DO Attending Provider Active St art: November 26, 2024 Dr. Erica Richardson DO Referring Provider Active St art: November 26, 2024 Team Status: Inactive Member Role/Relationship Status Dates Dr. Sheyla Mcgee MD Primary Care Provider Active Start: November 26, 2024 End: November 26, 2024 Dr. Erica Richardson DO Attending Provider Active St art: November 26, 2024 End: November 26, 2024 Dr. Erica Richardson DO Referring Provider Active St art: November 26, 2024 End: November 26, 2024 Team Status: Active Member Role/Relationship Status Dates Dr. Erica Richardson DO Primary care physician Active Team Status: Inactive Member Role/Relationship Status Dates Dr. Erica Richardson DO Primary care physician Active Start: September 22, 2024 End: September 25, 2024 Alexis Quijano MD Emergency Department Physician Activ e Start: September 22, 2024 End: September 25, 2024 Dr. Aggie Bolton MD Admitting physician Active Start: September 22, 2024 End: September 25, 2024 Dr. Aggie Bolton MD Nurse Practitioner Active Start: September 22, 2024 End: September 25, 2024 Dr. Froy Velázquez DO Attending physician Active Start: September 22, 2024 End: September 25, 2024 Team Status: Active Member Role/Relationship Status Dates Dr. Erica Richardson DO Primary care physician Active Start: September 23, 2024 Alexis Quijano MD Emergency Department Physician Activ e Start: September 23, 2024 Dr. Aggie Bolton MD Admitting physician Active Start: September 23, 2024 Dr. Aggie Bolton MD Nurse Practitioner Active Start: September 23, 2024 Dr. Froy Velázquez DO Attending physician Active Start: September 23, 2024 Dr. Froy Velázquez DO Nurse Practitioner Active Start: September 23, 2024 Team Status: Active Member Role/Relationship Status Dates Dr. Erica Richardson DO Primary care physician Active Start: September 24, 2024 Alexis Quijano MD Emergency Department Physician Activ e Start: September 24, 2024 Dr. Aggie Bolton MD Admitting physician Active Start: September 24, 2024 Dr. Aggie Bolton MD Nurse Practitioner Active Start: September 24, 2024 Dr. Froy Velázquez DO Attending physician Active Start: September 24, 2024 Dr. Froy Velázquez DO Nurse Practitioner Active Start: September 24, 2024 Team Status: Active Member Role/Relationship Status Dates Dr. Erica Richardson DO Primary care physician Active Start: September 25, 2024 Alexis Quijano MD Emergency Department Physician Activ e Start: September 25, 2024 Dr. Aggie Bolton MD Admitting physician Active Start: September 25, 2024 Dr. Aggie Bolton MD Nurse Practitioner Active Start: September 25, 2024 Dr. Froy Velázquez DO Attending physician Active Start: September 25, 2024 Dr. Froy Velázquez DO Nurse Practitioner Active Start: September 25, 2024 Team Status: Inactive Member Role/Relationship Status Dates Dr. Franky Olivas DO Attending physician Active Start: September 26, 2024 End: September 26, 2024 Dr. Franky Olivas DO Emergency Department Physician A ctive Start: September 26, 2024 End: September 26, 2024 Dr. Sheyla Mcgee MD Primary care physician Activ e Start: September 26, 2024 End: September 26, 2024 Team Status: Active Member Role/Relationship Status Dates Dr. Sheyla Mcgee MD Primary care physician Activ e Start: September 28, 2024 Sheyla SMITH MD Attending physician Active Start: September 28, 2024 Sheyla SMITH MD Referring Provider Active Start: September 28, 2024 Team Status: Inactive Member Role/Relationship Status Dates Dr. Sheyla Mcgee MD Primary care physician Activ e Start: September 28, 2024 End: September 28, 2024 Aiden Mcgrath IRONWORKER APPRENTICE, IRONWORKER APPRENTICE-C Attending physician Active Start: September 28, 2024 End: September 28, 2024 Team Status: Inactive Member Role/Relationship Status Dates Dr. Sheyla Mcgee MD Primary care physician Activ e Start: September 29, 2024 End: September 29, 2024 Dr. Sheyla Mcgee MD Attending physician Active Start: September 29, 2024 End: September 29, 2024 Team Status: Inactive Member Role/Relationship Status Dates Dr. Sheyla Mcgee MD Primary care physician Activ e Start: September 30, 2024 End: September 30, 2024 Aiden Mcgrath IRONWORKER APPRENTICE, IRONWORKER APPRENTICE-C Attending physician Active Start: September 30, 2024 End: September 30, 2024 Team Status: Inactive Member Role/Relationship Status Dates Dr. Sheyla Mcgee MD Primary care physician Activ e Start: October 01, 2024 End: October 01, 2024 Aiden Mcgrath IRONWORKER APPRENTICE, IRONWORKER APPRENTICE-C Attending physician Active Start: October 01, 2024 End: October 01, 2024 Team Status: Active Member Role/Relationship Status Dates Dr. Sheyla Mcgee MD Primary care physician Activ e Start: October 05, 2024 Sheyla SMITH MD Attending physician Active Start: October 05, 2024 Team Status: Active Member Role/Relationship Status Dates Dr. Sheyla Mcgee MD Primary care physician Activ e Start: October 12, 2024 Sheyla SMITH MD Attending physician Active Start: October 12, 2024 Team Status: Inactive Member Role/Relationship Status Dates Dr. Sheyla Mcgee MD Primary care physician Activ e Start: October 12, 2024 End: October 12, 2024 Adien Mcgrath IRONWORKER APPRENTICE, IRONWORKER APPRENTICE-C Attending physician Active Start: October 12, 2024 End: October 12, 2024 Team Status: Active Member Role/Relationship Status Dates Dr. Sheyla Mcgee MD Primary care physician Activ e Start: October 19, 2024 Sheyla SMTIH MD Attending physician Active Start: October 19, 2024 Team Status: Inactive Member Role/Relationship Status Dates Dr. Sheyla Mcgee MD Primary care physician Activ e Start: October 20, 2024 Dr. Shireen Marley MD Attending physician Active Start: October 20, 2024 Team Status: Active Member Role/Relationship Status Dates Dr. Sheyla Mcgee MD Primary care physician Activ e Start: October 26, 2024 Sheyla SMITH MD Attending physician Active Start: October 26, 2024 Team Status: Inactive Member Role/Relationship Status Dates Dr. Sheyla Mcgee MD Primary care physician Activ e Start: November 13, 2024 End: November 13, 2024 Dr. Erica Richardson DO Attending physician Active S tart: November 13, 2024 End: November 13, 2024 Dr. Erica Richardson DO Referring Provider Active St art: November 13, 2024 End: November 13, 2024 Team Status: Inactive Member Role/Relationship Status Dates Dr. Sheyla Mcgee MD Primary care physician Activ e Start: November 25, 2024 End: November 25, 2024 Dr. Erica Richardson DO Attending physician Active S tart: November 25, 2024 End: November 25, 2024 Team Status: Inactive Member Role/Relationship Status Dates Dr. Sheyla Mcgee MD Primary care physician Activ e Start: November 26, 2024 End: November 26, 2024 Dr. Erica Richardson DO Attending physician Active S tart: November 26, 2024 End: November 26, 2024 Dr. Erica Richardson DO Referring Provider Active St art: November 26, 2024 End: November 26, 2024 Team Status: Inactive Member Role/Relationship Status Dates Ray Esnisreen PA, PA-C Attending physician Active Start: January 16, 2025 End: January 16, 2025 Ray Eshenben PA, PA-C Referring Provider Active Start: January 16, 2025 End: January 16, 2025 Dr. Erica Richardson DO Primary care physician Active Start: January 16, 2025 End: January 16, 2025 Team Status: Inactive Member Role/Relationship Status Dates Dr. Sheyla Mcgee MD Primary care physician Activ e Start: November 13, 2024 End: November 13, 2024 Dr. Erica Richardson DO Attending physician Active S tart: November 13, 2024 End: November 13, 2024 Dr. Erica Richardson DO Referring Provider Active St art: November 13, 2024 End: November 13, 2024 Team Status: Inactive Member Role/Relationship Status Dates Dr. Sheyla Mcgee MD Primary care physician Activ e Start: November 25, 2024 End: November 25, 2024 Dr. Erica Richardson DO Attending physician Active S tart: November 25, 2024 End: November 25, 2024 Team Status: Inactive Member Role/Relationship Status Dates Dr. Sheyla Mcgee MD Primary care physician Activ e Start: November 26, 2024 End: November 26, 2024 Dr. Erica Richardson DO Attending physician Active S tart: November 26, 2024 End: November 26, 2024 Dr. Erica Richardson DO Referring Provider Active St art: November 26, 2024 End: November 26, 2024 Team Status: Inactive Member Role/Relationship Status Dates Ray Zakiya PA, PA-C Attending physician Active Start: January 16, 2025 End: January 16, 2025 Ray Eshenben PA, PA-C Referring Provider Active Start: January 16, 2025 End: January 16, 2025 Dr. Erica Richardson DO Primary care physician Active Start: January 16, 2025 End: January 16, 2025 Team Status: Inactive Member Role/Relationship Status Dates Dr. Erica Richardson DO Primary care physician Active Start: February 09, 2025 End: February 09, 2025 Dr. Erica Richardson DO Referring Provider Active St art: February 09, 2025 End: February 09, 2025 Cali Ariza MD Attending physician Active S tart: February 09, 2025 End: February 09, 2025 Goals (unrecognized section and content) Goals may [...] may be documented in an alternate section No data available for this sectionGoals may be documented in an alternate [...] BE BASED ON THE PRIMARY CLINICAL RECORDS. [facility] provides no warranty or guarantee of the accuracy or completeness of information in this document.
[2025-03-29 19:39] LABS: Anion Gap 16 (5-15); BUN 15 mg/dL (4-19); BUN/Creat Ratio 31.4 RATIO (10-20); Calcium,Total 7.9 mg/dL (7.6-11.0); Carbon Dioxide 20.6 mmol/L (21.0-32.0); Chloride 90 mmol/L (98-108); Estimated Creatinine Clearance 65.29 ml/min (50-250); Glucose 116 mg/dL (70-99); Potassium 4.6 mmol/L (3.3-5.1); Troponin T High Sens 4 HR 14 ng/L (<=14)
[2025-03-29 22:33] LABS: Anion Gap 12 (5-15); BUN 15 mg/dL (4-19); BUN/Creat Ratio 31.1 RATIO (10-20); Calcium,Total 7.8 mg/dL (7.6-11.0); Carbon Dioxide 23.1 mmol/L (21.0-32.0); Chloride 93 mmol/L (98-108); Estimated Creatinine Clearance 65.29 ml/min (50-250); Glucose 216 mg/dL (70-99); Potassium 4.0 mmol/L (3.3-5.1)
[2025-03-29] MEDS: Potassium Chloride Oral Tablet 20 MEQ PO (22:49)
[2025-03-29] MEDS: Memantine Hydrochloride 5 MG Tablet PO (22:50)
[2025-03-30] VITALS (9 sets, daily range): BP systolic 130–151; BP diastolic 57–80; PULSE 80–95; RESP 14–18; TEMP 36.4–36.7; O2SAT 93–98
[2025-03-30 05:57] LABS: Hematocrit 35.5 % (37-47); Hemoglobin 11.8 g/dL (12.0-15.0); Immature Granulocytes Count 0.100 X10^3/uL (0.0-0.0); Mean Corp Hgb Conc 33.2 g/dL (32-36); Mean Corpuscular Volume 92.7 fL (81-99); Mean Platelet Vol. 9.6 fl (6.2-12.0); NRBC Flagged by Analyzer 0 % (0-5); Platelet Count 381 K/mm3 (150-450); RBC Distribution Width CV 12.5 % (11.6-14.6); RBC Distribution Width SD 42.4 fl (35.1-43.9); Red Blood Count 3.83 M/mm3 (4.2-5.4); White Blood Count 9.9 K/mm3 (4.4-11.0)
[2025-03-30 06:24] LABS: Anion Gap 15 (5-15); BUN 16 mg/dL (4-19); BUN/Creat Ratio 38.0 RATIO (10-20); Calcium,Total 8.1 mg/dL (7.6-11.0); Carbon Dioxide 21.6 mmol/L (21.0-32.0); Chloride 95 mmol/L (98-108); Estimated Creatinine Clearance 65.29 ml/min (50-250); Glucose 159 mg/dL (70-99); Potassium 4.6 mmol/L (3.3-5.1)
--- NOTE | 2025-03-30 09:39 | CASEMGMT ---
PADILLA CONNER Assessment Pt is currently alert but confused (A&Ox2). TC to pt's HCPOA, daughter, Beth. PADILLA CONNER introduced self and role at [facility], pt's daughter voices understanding and is agreeable to assisting with the assessment. Care providers, pharmacy, and demographics verified. Admitting dx: Hypoxia, COVID, Hyponatremia LACE Strata: 2 PCP: Erica Richardson Specialists: Pt's daughter states that the pt sees an oncologist, cardiac technologist, and residential sales representative, but is unsure of the names Preferred Pharmacy: [facility] Insurance: [employer] Aud[employer] A/B, [place] Prescription Benefit: Yes LNOK: Beth (Daughter and HCPOA), Sami (Sister) Living Arrangements: Pt lives alone in a ground level apartment with a flat entrance. However, pt has 12/11 pvt duty aid through [employer]. ADLs/IADLs: Pt requires assistance and the pt's pvt duty aide provides this support needed Transportation: Caregivers, family DME: Pt is currently requiring additional oxygen and may qualify for home oxygen use. A verbal list of local in-network DME companies were provided to the pt's daughter at this time. Prefers [employer]. Patient also has shower chair, raised toilet, adjustable bed, lift chair, grab bars, walker, wheelchair, and medical alert at home. HHC/SNF: Hx with [facility] HH. Hx with [facility] and [facility] TCU Pt?s goal: TBD Plan: TBD. Anticipate SNF vs Home with skilled HHC and [employer] pvt duty aid with the potential for new oxygen set up. Current 6-Click score is 14. PT is pending. At this time, the pt's daughter states that it is too early to tell what the pt will need or want at the time of DC. CM to follow. Pt's daughter denies further questions or concerns at this time. Report given to WARP DYEING TENDER CM. Consuelo Andre RN, CM
[2025-03-30] MEDS: 0.9% Normal Saline (1000mL) 1,000 ML 75 ML IV (09:55)
[2025-03-30] MEDS: Remdesivir 200 MG in 0.9% Normal Saline (250mL Bag) 210 ML 250 MG IV (09:59)
[2025-03-30] MEDS: 0.9% Saline Lock 10 ML Syringe IV (10:17)
[2025-03-30] MEDS: Memantine Hydrochloride 5 MG Tablet PO ×2 (10:20→22:27)
[2025-03-30] MEDS: Lactobacillis Acidophilus 1 CAP PO (10:21)
[2025-03-30] MEDS: Potassium Chloride Oral Tablet 20 MEQ PO ×2 (10:21→17:09)
[2025-03-30] MEDS: prednisoLONE eye drops (5 mL) 1 DROP OPTH.BTL 1 DRP OPHTHALMIC (10:26)
[2025-03-30] MEDS: Erythromycin Ophthalmic (NSY) 1 GM OPTH.TUBE 1 APPLIC RIGHT EYE (10:34)
[2025-03-30 12:25] LABS: Anion Gap 14 (5-15); BUN 19 mg/dL (4-19); BUN/Creat Ratio 35.5 RATIO (10-20); Calcium,Total 7.8 mg/dL (7.6-11.0); Carbon Dioxide 19.4 mmol/L (21.0-32.0); Chloride 93 mmol/L (98-108); Estimated Creatinine Clearance 65.29 ml/min (50-250); Glucose 147 mg/dL (70-99); Potassium 4.5 mmol/L (3.3-5.1)
--- NOTE | 2025-03-30 19:53 | PN.HOSP_ITS ---
Reason for Visit Chief Complaint: Confusion, weakness, covid 19 Subjective Subjective Patient was seen and examined today, she remains on low-flow oxygen at this time, I talked with her daughter who was in the room at the time of my examination. I added remdesivir to the patient's medications today, I believe she is in the 10-day window for administration of this medication. Objective Data Objective Data Vital Signs: Vital Signs Temp Pulse Resp BP Pulse Ox O2 Del Method O2 Flow Rate 98.1 F 95 18 133/57 H 98 Nasal Cannula 2 03/30/25 16:10 03/30/25 16:10 03/30/25 16:10 03/30/25 16:10 03/30/25 16:10 03/30/25 16:10 03/30/25 16:10 Oxygen Flow Rate (L/min) 2 Oxygen Delivery Method Nasal Cannula Weight: 82.554 kg Body Mass Index (BMI) 27.6 Intake & Output: Intake and Output for Last 24 Hours 03/28/25 03/29/25 03/30/25 23:59 23:59 23:59 Intake Total 500 / 500 1710 / 1710 Balance 500 / 500 1710 / 1710 Lab / Micro Data 03/30/25 05:28 03/31/25 10:55 Labs: Laboratory Results - last 24 hr 03/29/25 21:58: Sodium 129 L, Potassium 4.0, Chloride 93 L, Carbon Dioxide 23.1, Anion Gap 12, BUN 15, Creatinine 0.50 L, Estim Creat Clear Calc 65.29, Est GFR (MDRD) Non-Af 96, BUN/Creatinine Ratio 31.1 H, Glucose 216 H, Calcium 7.8 03/30/25 05:28: WBC 9.9, RBC 3.83 L, Hgb 11.8 L, Hct 35.5 L, MCV 92.7, MCH 30.8, MCHC 33.2, RDW Std Deviation 42.4, RDW Coeff of Felix 12.5, Plt Count 381, MPV 9.6, Immature Gran % (Auto) 1.000 H, Neut % (Auto) 89.5 H, Lymph % (Auto) 8.2 L, [place] % (Auto) 1.1, Eos % (Auto) 0.0, Baso % (Auto) 0.2, Absolute Neuts (auto) 8.8 H, Absolute Lymphs (auto) 0.81 L, Nucleated RBC % 0, Sodium 131 L, Potassium 4.6, Chloride 95 L, Carbon Dioxide 21.6, Anion Gap 15, BUN 16, Creatinine 0.42 L , Estim Creat Clear Calc 65.29, Est GFR (MDRD) Non-Af 100, BUN/Creatinine Ratio 38.0 H, Glucose 159 H, Calcium 8.1 03/30/25 11:42: Sodium 127 L, Potassium 4.5, Chloride 93 L, Carbon Dioxide 19.4 L, Anion Gap 14, BUN 19, Creatinine 0.54 L, Estim Creat Clear Calc 65.29, Est GFR (MDRD) Non-Af 94, BUN/Creatinine Ratio 35.5 H, Glucose 147 H, Calcium 7.8 Micro: Microbiology 03/29/25 13:40 Mucosa - Nose SARS-CoV-2, Influenza & RSV (PCR) - Final SARS-CoV-2 (COVID 19 PCR) Physical Exam Const alert, oriented x3 and no apparent distress General Appearance: cooperative, well kempt and well developed Orientation / Consciousness: awake, oriented to person, oriented to place and oriented to time HEENT normocephalic, head/scalp atraumatic and moist oral mucous membranes Eyes PERRL, EOMs intact bilaterally and conjunctivae normal Neck supple, no JVD, thyroid normal and no carotid bruits General: trachea midline Resp normal respiratory effort, no retractions, no use of accessory muscles and clear to auscultation bilaterally Auscultation: Negative for rales, rhonchi or wheezes Cardio regular rate, regular rhythm, S1 normal heart sound, S2 normal heart sound, no rub and no gallops Cardio Narrative: 2/6 systolic murmur is noted at the apex and left sternal border GI normal to inspection, nondistended, normoactive bowel sounds, soft to palpation, non-tender and non-distended Extremity no clubbing, cyanosis or edema Skin no rashes or lesions noted General Skin Exam: no breakdown Neuro oriented x3, CN's II-XII intact bilaterally, moves all extremities, no focal motor deficits and no sensory deficits noted Sensorium / Orientation: awake and alert Speech: speech normal Psych affect normal Assessment & Plan Assessment/Plan (1) COVID-19: PLAN: Plan 1. COVID-19 infection with hypoxia-oxygen will be weaned if possible, patient will remain on dexamethasone and remdesivir #2 generalized weakness-secondary to COVID-19 infection and poor oral intake- patient will be given supportive care and IV fluids, PT and OT are seeing patient #3 hypothyroidism-continue Synthroid #4 dementia-complicates care, management, recovery, and prognosis #5 essential hypertension-continue amlodipine Total clinical time spent by myself addressing patient's medical issues, reviewing all of the data, and collaborating with patient's care team: 35 Charges/Coding Visit Charges Inpatient E&M: 94062 Subs Hosp L2
[2025-03-31] VITALS (9 sets, daily range): BP systolic 129–142; BP diastolic 68–82; PULSE 73–88; RESP 15–18; TEMP 36.4–37.2; O2SAT 93–97
[2025-03-31] MEDS: Remdesivir 100 MG in 0.9% Normal Saline (250mL Bag) 230 ML 250 MG IV (09:23)
[2025-03-31] MEDS: 0.9% Saline Lock 10 ML Syringe IV (09:29)
[2025-03-31] MEDS: Potassium Chloride Oral Tablet 20 MEQ PO ×2 (09:42→16:52)
[2025-03-31] MEDS: Lactobacillis Acidophilus 1 CAP PO (09:43)
[2025-03-31] MEDS: Memantine Hydrochloride 5 MG Tablet PO ×2 (09:43→20:07)
[2025-03-31] MEDS: Erythromycin Ophthalmic (NSY) 1 GM OPTH.TUBE 1 APPLIC RIGHT EYE (09:45)
[2025-03-31] MEDS: prednisoLONE eye drops (5 mL) 1 DROP OPTH.BTL 1 DRP OPHTHALMIC (09:46)
--- NOTE | 2025-03-31 10:07 | CASEMGMT ---
PADILLA CONNER updated by therapy that patient would benefit from SNF at discharge. PADILLA CONNER called daughter Beth to discuss discharge planning. PADILLA CONNER updated daughter regarding therapy recommendations for SNF at discharge. Daughter is agreeable and states she would prefer [facility] as patient has been there previously, denied SNF list at this time. PADILLA CONNER in to patient's room to update regarding therapy and recommendation for SNF at discharge. PADILLA CONNER updated patient regarding conversation with daughter and preference for [facility], patient states she prefers [facility] as well as she has been there in the past. Patient had no further questions or concerns. PADILLA CONNER updated DC manager transportation planning to make referral to [facility]. CM will continue to follow this patient and plan for a safe discharge.
[2025-03-31 11:28] LABS: AST(SGOT) 17 U/L (<=31); Alanine Aminotransfer ALT/SGPT 15 U/L (<=34); Albumin, Serum 3.5 g/dL (3.4-4.8); Alkaline Phosphatase 71 U/L (35-104); Anion Gap 14 (5-15); BUN 18 mg/dL (4-19); BUN/Creat Ratio 42.8 RATIO (10-20); Calcium,Total 7.9 mg/dL (7.6-11.0); Carbon Dioxide 20.2 mmol/L (21.0-32.0); Chloride 95 mmol/L (98-108); Estimated Creatinine Clearance 65.29 ml/min (50-250); Globulin 3.1 g/dL (2.2-4.2); Glucose 156 mg/dL (70-99); Potassium 4.0 mmol/L (3.3-5.1)
--- NOTE | 2025-03-31 11:52 | CASEMGMT ---
Addendum entered by Codi Du 03/31/25 14:56: [facility]. Original Note: Discharge Planning Referral sent via [facility]Port to [facility]. Codi Du DC Planning Asst.
--- NOTE | 2025-03-31 14:41 | CASEMGMT ---
Discharge Planning A list of?SNF providers including quality and resource use data and consistent with the patient's preferred geographic region, medical needs, and insurance network was created in CarePort Guide.? This list was provided to the RN DALILA. Codi Du, Discharge Planning Asst.
--- NOTE | 2025-03-31 16:24 | CASEMGMT ---
RN DALILA updated that [facility] has declined patient. RN CM called and updated daughter Beth. Beth states their next preference would TCU. RN DALILA provided SNF list over the phone to daughter to review for additional choice should TCU not be able to accept, Beth voiced understanding and had no further questions or concerns. PADILLA CONNER made referral to TCU awaiting response.
--- NOTE | 2025-03-31 17:47 | PN.HOSP_ITS ---
Reason for Visit Chief Complaint: Confusion, weakness, covid 19 Subjective Subjective Patient was seen and examined today, she was weaned off oxygen today and her IV became dysfunctional, I was approached by nursing to see if the patient could go off remdesivir and be changed to oral dexamethasone, I told them I was okay with this. Patient's family want the patient to go to a nursing facility for short- term rehab services. Objective Data Objective Data Vital Signs: Vital Signs Temp Pulse Resp BP Pulse Ox O2 Del Method O2 Flow Rate 98 F 87 14 130/66 H 95 Room Air 1 04/01/25 14:30 04/01/25 14:30 04/01/25 14:30 04/01/25 14:30 04/01/25 14:30 04/01/25 14:30 04/01/25 07:53 Oxygen Flow Rate (L/min) 1 Oxygen Delivery Method Room Air Weight: 82.554 kg Body Mass Index (BMI) 27.6 Intake & Output: Intake and Output for Last 24 Hours 03/30/25 03/31/25 04/01/25 23:59 23:59 23:59 Intake Total 1710 / 1710 1610 / 1910 1010 / 1010 Output Total 950 / 1400 2150 / 2150 Balance 1710 / 1710 660 / 510 -1140 / -1140 Lab / Micro Data 03/30/25 05:28 03/31/25 10:55 Micro: Microbiology 03/29/25 14:02 Blood Culture (Wb) - Left Wrist Blood Culture - Preliminary No growth in 48 hours. 03/29/25 13:10 Blood Culture (Wb) - Right Wrist Blood Culture - Preliminary No growth in 48 hours. 03/29/25 14:02 Urine, Clean Catch Urine Culture - Final Culture exhibits no growth. 03/29/25 13:40 Mucosa - Nose SARS-CoV-2, Influenza & RSV (PCR) - Final SARS-CoV-2 (COVID 19 PCR) Physical Exam Const alert and no apparent distress General Appearance: cooperative, well kempt and well developed Orientation / Consciousness: awake, oriented to person and oriented to place HEENT normocephalic, head/scalp atraumatic and moist oral mucous membranes Eyes PERRL, EOMs intact bilaterally and conjunctivae normal Neck supple, no JVD, thyroid normal and no carotid bruits General: trachea midline Resp normal respiratory effort, no retractions, no use of accessory muscles and clear to auscultation bilaterally Auscultation: Negative for rales, rhonchi or wheezes Cardio regular rate, regular rhythm, S1 normal heart sound, S2 normal heart sound, no rub and no gallops Cardio Narrative: There is a 2/6 systolic murmur at the apex and left sternal border GI normal to inspection, nondistended, normoactive bowel sounds, soft to palpation, non-tender and non-distended Extremity no clubbing, cyanosis or edema Skin no rashes or lesions noted General Skin Exam: no breakdown Neuro CN's II-XII intact bilaterally, no focal motor deficits and no sensory deficits noted Sensorium / Orientation: awake, alert, oriented to person and oriented to place Speech: speech normal Psych affect normal Assessment & Plan Assessment/Plan (1) COVID-19: PLAN: Plan 1. COVID-19 infection with hypoxia-oxygen will be weaned if possible, patient will remain on dexamethasone and remdesivir #2 generalized weakness-secondary to COVID-19 infection and poor oral intake- patient will be given supportive care and IV fluids, PT and OT are seeing patient #3 hypothyroidism-continue Synthroid #4 dementia-complicates care, management, recovery, and prognosis #5 essential hypertension-continue amlodipine #6 hyponatremia-labs will be monitored Total clinical time spent by myself addressing patient's medical issues, reviewing all of the data, and collaborating with patient's care team: 35 minutes Charges/Coding Visit Charges Inpatient E&M: 17543 Subs Hosp L2
[2025-04-01] VITALS (8 sets, daily range): BP systolic 122–136; BP diastolic 63–75; PULSE 69–90; RESP 14–20; TEMP 35.4–36.6; O2SAT 94–97
[2025-04-01] MEDS: Potassium Chloride Oral Tablet 20 MEQ PO ×2 (09:01→16:54)
[2025-04-01] MEDS: Lactobacillis Acidophilus 1 CAP PO (09:01)
[2025-04-01] MEDS: Memantine Hydrochloride 5 MG Tablet PO ×2 (09:02→20:51)
[2025-04-01] MEDS: prednisoLONE eye drops (5 mL) 1 DROP OPTH.BTL 1 DRP OPHTHALMIC (09:02)
[2025-04-01] MEDS: Erythromycin Ophthalmic (NSY) 1 GM OPTH.TUBE 1 APPLIC RIGHT EYE (09:03)
[2025-04-01] MEDS: Remdesivir 100 MG in 0.9% Normal Saline (250mL Bag) 230 ML 250 MG IV (11:26)
[2025-04-01] MEDS: 0.9% Saline Lock 10 ML Syringe IV (11:27)
--- NOTE | 2025-04-01 15:24 | CASEMGMT ---
PADILLA CONNER updated by Christen in TCU that they are able to accept patient and will have bed available tomorrow for patient. PADILLA CONNER updated hospitalist, discharge planned for tomorrow. PADILLA CONNER called daughter Beth and updated regarding acceptance to TCU and planned discharge for tomorrow. Daughter voiced appreciation and had no further questions or concerns. PADILLA CONNER updated patient in room. Patient voiced appreciation and had no further questions or concerns.
--- NOTE | 2025-04-01 18:52 | PN.HOSP_ITS ---
Reason for Visit Chief Complaint: Confusion, weakness, covid 19 Subjective Subjective Patient was seen and examined today, she remains on room air, she voices no specific complaints, she will be going to a skilled care facility (TCU) most probably tomorrow. Objective Data Objective Data Vital Signs: Vital Signs Temp Pulse Resp BP Pulse Ox O2 Del Method O2 Flow Rate 98 F 87 14 130/66 H 95 Room Air 1 04/01/25 14:30 04/01/25 14:30 04/01/25 14:30 04/01/25 14:30 04/01/25 14:30 04/01/25 14:30 04/01/25 07:53 Oxygen Flow Rate (L/min) 1 Oxygen Delivery Method Room Air Weight: 82.554 kg Body Mass Index (BMI) 27.6 Intake & Output: Intake and Output for Last 24 Hours 03/30/25 03/31/25 04/01/25 23:59 23:59 23:59 Intake Total 1710 / 1710 1610 / 1910 1010 / 1010 Output Total 950 / 1400 2150 / 2150 Balance 1710 / 1710 660 / 510 -1140 / -1140 Lab / Micro Data 03/30/25 05:28 03/31/25 10:55 Micro: Microbiology 03/29/25 14:02 Blood Culture (Wb) - Left Wrist Blood Culture - Preliminary No growth in 48 hours. 03/29/25 13:10 Blood Culture (Wb) - Right Wrist Blood Culture - Preliminary No growth in 48 hours. 03/29/25 14:02 Urine, Clean Catch Urine Culture - Final Culture exhibits no growth. 03/29/25 13:40 Mucosa - Nose SARS-CoV-2, Influenza & RSV (PCR) - Final SARS-CoV-2 (COVID 19 PCR) Physical Exam Narrative alert and no apparent distress General Appearance: cooperative, well kempt and well developed Orientation / Consciousness: awake, oriented to person and oriented to place HEENT normocephalic, head/scalp atraumatic and moist oral mucous membranes Eyes PERRL, EOMs intact bilaterally and conjunctivae normal Neck supple, no JVD, thyroid normal and no carotid bruits General: trachea midline Resp normal respiratory effort, no retractions, no use of accessory muscles and clear to auscultation bilaterally Auscultation: Negative for rales, rhonchi or wheezes Cardio regular rate, regular rhythm, S1 normal heart sound, S2 normal heart sound, no rub and no gallops Cardio Narrative: There is a 2/6 systolic murmur at the apex and left sternal border GI normal to inspection, nondistended, normoactive bowel sounds, soft to palpation, non-tender and non-distended Extremity no clubbing, cyanosis or edema Skin no rashes or lesions noted General Skin Exam: no breakdown Neuro CN's II-XII intact bilaterally, no focal motor deficits and no sensory deficits noted Sensorium / Orientation: awake, alert, oriented to person and oriented to place Speech: speech normal Psych affect normal Assessment & Plan Assessment/Plan (1) COVID-19: PLAN: Plan 1. COVID-19 infection with hypoxia-oxygen will be weaned if possible, patient will remain on dexamethasone, remdesivir has been discontinued after today's dose due to the fact the patient is no longer hypoxic #2 generalized weakness-secondary to COVID-19 infection and poor oral intake- patient will be given supportive care and IV fluids, PT and OT are seeing patient #3 hypothyroidism-continue Synthroid #4 dementia-complicates care, management, recovery, and prognosis #5 essential hypertension-continue amlodipine #6 hyponatremia-labs will be monitored Total clinical time spent by myself addressing patient's medical issues, reviewing all of the data, and collaborating with patient's care team: 35 minutes Charges/Coding Visit Charges Inpatient E&M: 46802 Subs Hosp L2
[2025-04-02 05:00] VITALS: BP 150/79; PULSE 70; RESP 18; TEMP 36.2; O2SAT 95
[2025-04-02 07:03] VITALS: PULSE 89; RESP 18; O2SAT 95
[2025-04-02 07:14] LABS: Anion Gap 14 (5-15); BUN 18 mg/dL (4-19); BUN/Creat Ratio 37.3 RATIO (10-20); Calcium,Total 8.5 mg/dL (7.6-11.0); Carbon Dioxide 22.5 mmol/L (21.0-32.0); Chloride 97 mmol/L (98-108); Estimated Creatinine Clearance 65.29 ml/min (50-250); Glucose 97 mg/dL (70-99); Potassium 3.5 mmol/L (3.3-5.1)
[2025-04-02 09:43] VITALS: BP 145/78; PULSE 79; RESP 16; TEMP 36.3; O2SAT 95
[2025-04-02] MEDS: Lactobacillis Acidophilus 1 CAP PO (09:45)
[2025-04-02] MEDS: Memantine Hydrochloride 5 MG Tablet PO (09:45)
[2025-04-02] MEDS: Potassium Chloride Oral Tablet 20 MEQ PO ×2 (09:45→17:14)
[2025-04-02] MEDS: prednisoLONE eye drops (5 mL) 1 DROP OPTH.BTL 1 DRP OPHTHALMIC (09:47)
[2025-04-02] MEDS: Erythromycin Ophthalmic (NSY) 1 GM OPTH.TUBE 1 APPLIC RIGHT EYE (09:47)
[2025-04-02 15:09] VITALS: BP 133/75; PULSE 77; RESP 18; TEMP 36.3; O2SAT 96
--- NOTE | 2025-04-02 15:37 | TREXTCAR_ITS ---
Diet Diet Order/Speech Therapy: INPATIENT Hospital Diet / Speech Therapy Order(s) 03/29/25 18:05 Diet: Regular - General Food consistency:: Regular Liquid Consistency:: Regular/Thin Type of Dietary Supplement:: Ensure Plus High Protein Diet Comments: 240mL EPHP with dinner Routine Orders/Code Status Code Status: Full Code DC O2, CPAP, BIPAP needs Home O2 Discharge instructions: No Therapies Weight Bearing: Weight bearing as tolerated Physical Therapy: Eval and Treat Occupational Therapy: Eval and Treat Problem/Diagnosis (1) COVID-19: Status: Acute Code(s): U07.1 - COVID-19 Plan 1. COVID-19 infection with hypoxia-oxygen will be weaned if possible, patient will remain on dexamethasone, remdesivir has been discontinued after today's dose due to the fact the patient is no longer hypoxic #2 generalized weakness-secondary to COVID-19 infection and poor oral intake- patient will be given supportive care and IV fluids, PT and OT are seeing patient #3 hypothyroidism-continue Synthroid #4 dementia-complicates care, management, recovery, and prognosis #5 essential hypertension-continue amlodipine #6 hyponatremia-labs will be monitored Total clinical time spent by myself addressing patient's medical issues, reviewing all of the data, and collaborating with patient's care team: 35 minutes Allergies/Procedures Done in Hospital Allergies bacitracin (From Neosporin ([id number])) Allergy (Unknown, Verified 03/29/25 13:23) Unknown neomycin (From Neosporin ([id number])) Allergy (Unknown, Verified 03/29/25 13:23) Unknown polymyxin B (From Neosporin ([id number])) Allergy (Unknown, Verified 03/29/25 13:23) Unknown Antihistamines - Alkylamine Allergy (Verified 03/29/25 13:23) PT UNSURE OF REACTION diphenhydramine (From Benadryl) Allergy (Verified 03/29/25 13:23) PT UNSURE OF REACTION Dietary and Speech Recommendations Dietitian Recommendations/Changes: Continue regular diet. Will order 240mL ensure with dinner. Will monitor weight trends. Discharge Plan Admission Admit Date/Time: 03/29/25 17:35 Primary Reason for Your Visit: hypoxia, weaknesss, COVID 19 Attending Provider: James Lamar Primary Care Provider: Erica Richardson Consulting Providers: Vivienne Lowe Discharge Orders/Prescriptions Prescriptions: New erythromycin 5 mg/gram (0.5 %) Ointment 1 applic RIGHT EYE DAILY Qty: 0 0RF dexamethasone 4 mg Tablet 6 mg PO DAILY Qty: 0 0RF Rx Instructions: give one dose on 04/03/25 then discontinue etodolac 300 mg Capsule 300 mg PO BID Qty: 0 0RF acyclovir 200 mg Capsule 400 mg PO BID Qty: 0 0RF clonazepam 1 mg Tablet 1 mg PO Q12 Qty: 4 0RF Continued pregabalin 75 mg capsule 75 mg PO TID PreserVision AREDS 4,296 mcg-226 mg-90 mg capsule 1 cap PO BID acetaminophen 500 mg capsule 500 mg PO BID pyridoxine (vitamin B6) 100 mg tablet 100 mg PO DAILY cholecalciferol (vitamin D3) 25 mcg (1,000 unit) capsule 25 mcg PO DAILY memantine 5 mg tablet 5 mg PO BID escitalopram oxalate [Lexapro] 10 mg tablet 10 mg PO DAILY amlodipine 5 mg tablet 5 mg PO DAILY calcitriol 0.5 mcg capsule 0.5 mcg PO DAILY Rx Instructions: please discontinue any rx for calcitriol by an other doctors levothyroxine 125 mcg tablet 125 mcg PO DAILY potassium chloride 20 mEq tablet extended release 20 meq PO BID prednisolone acetate 1 % drops,suspension 1 drp ophthalmic (eye) DAILY docusate sodium [Colace] 100 mg capsule 100 mg PO DAILY lactobacillus combination no.9 [Adult 50 Plus Probiotic] 1 cap PO DAILY guaifenesin [Mucinex] 1,200 mg tablet extended release 12hr 1,200 mg PO BID quetiapine 25 mg tablet 25 mg PO BID liothyronine 5 mcg tablet 5 mcg PO DAILY Discontinued valacyclovir 1 gram tablet 1,000 mg PO QDAY nabumetone 750 mg tablet 750 mg PO BID meclizine 25 MG tablet 25 mg PO TID clonazepam 1 mg tablet 1 mg PO Q12H Paxlovid 300 mg (150 mg x 2)-100 mg tablets,dose pack 2 tab PO BID erythromycin 5 mg/gram (0.5 %) ointment 1 applic RIGHT EYE DAILY dextromethorphan polistirex [12-Hour Cough Relief] 30 mg/5 mL suspension,extended rel 12 hr 10 ml PO Q12H Referrals / Follow Up: Erica Richardson DO [Primary Care Provider, Family Practice] Disposition Disposition (needs filled in before D/C Order can be placed): [facility] Care Facility
--- NOTE | 2025-04-02 16:33 | CASEMGMT ---
RN CM updated by hospitalist that patient will discharge to TCU today for skilled level of care. RN CM called and updated daughter Beth. Beth voiced appreciation and had no further questions or concerns.
--- NOTE | 2025-04-02 16:57 | PCM.TXEXTCAR ---
Diet Diet Order/Speech Therapy: INPATIENT Hospital Diet / Speech Therapy Order(s) 03/29/25 18:05 Diet: Regular - General Food consistency:: Regular Liquid Consistency:: Regular/Thin Type of Dietary Supplement:: Ensure Plus High Protein Diet Comments: 240mL EPHP with dinner Routine Orders/Code Status Code Status: Full Code DC O2, CPAP, BIPAP needs Home O2 Discharge instructions: No Therapies Weight Bearing: Full weight bearing Physical Therapy: Eval and Treat Occupational Therapy: Eval and Treat Problem/Diagnosis (1) COVID-19: Status: Acute Code(s): U07.1 - COVID-19 Plan 1. COVID-19 infection with hypoxia-oxygen will be weaned if possible, patient will remain on dexamethasone, remdesivir has been discontinued after today's dose due to the fact the patient is no longer hypoxic #2 generalized weakness-secondary to COVID-19 infection and poor oral intake-patient will be given supportive care and IV fluids, PT and OT are seeing patient #3 hypothyroidism-continue Synthroid #4 dementia-complicates care, management, recovery, and prognosis #5 essential hypertension-continue amlodipine #6 hyponatremia-resolved Total clinical time spent by myself addressing patient's medical issues, reviewing all of the data, and collaborating with patient's care team: 35 minutes Allergies/Procedures Done in Hospital Allergies bacitracin (From Neosporin ([id number])) Allergy (Unknown, Verified 03/29/25 13:23) Unknown neomycin (From Neosporin ([id number])) Allergy (Unknown, Verified 03/29/25 13:23) Unknown polymyxin B (From Neosporin ([id number])) Allergy (Unknown, Verified 03/29/25 13:23) Unknown Antihistamines - Alkylamine Allergy (Verified 03/29/25 13:23) PT UNSURE OF REACTION diphenhydramine (From Benadryl) Allergy (Verified 03/29/25 13:23) PT UNSURE OF REACTION Procedures: None Type of Care/Length of Stay Estimated LOS: Convalescent Care Less Than 30 days Type of Care Needed: Skilled Rehab Potential: Fair Prognosis: Fair Additional Orders/Day of Discharge H&P will serve as current which was dated: 03/29/25 Day of Discharge: 04/02/25 Dietary and Speech Recommendations Dietitian Recommendations/Changes: Continue regular diet. Will order 240mL ensure with dinner. Will monitor weight trends. Discharge Plan Admission Admit Date/Time: 03/29/25 17:35 Primary Reason for Your Visit: hypoxia, weaknesss, COVID 19 Attending Provider: James Lamar Primary Care Provider: Erica Richardson Consulting Providers: Vivienne Lowe Discharge Orders/Prescriptions Prescriptions: New erythromycin 5 mg/gram (0.5 %) Ointment 1 applic RIGHT EYE DAILY Qty: 0 0RF dexamethasone 4 mg Tablet 6 mg PO DAILY Qty: 0 0RF Rx Instructions: give one dose on 04/03/25 then discontinue etodolac 300 mg Capsule 300 mg PO BID Qty: 0 0RF acyclovir 200 mg Capsule 400 mg PO BID Qty: 0 0RF clonazepam 1 mg Tablet 1 mg PO Q12 Qty: 4 0RF Continued pregabalin 75 mg capsule 75 mg PO TID PreserVision AREDS 4,296 mcg-226 mg-90 mg capsule 1 cap PO BID acetaminophen 500 mg capsule 500 mg PO BID pyridoxine (vitamin B6) 100 mg tablet 100 mg PO DAILY cholecalciferol (vitamin D3) 25 mcg (1,000 unit) capsule 25 mcg PO DAILY memantine 5 mg tablet 5 mg PO BID escitalopram oxalate [Lexapro] 10 mg tablet 10 mg PO DAILY amlodipine 5 mg tablet 5 mg PO DAILY calcitriol 0.5 mcg capsule 0.5 mcg PO DAILY Rx Instructions: please discontinue any rx for calcitriol by an other doctors levothyroxine 125 mcg tablet 125 mcg PO DAILY potassium chloride 20 mEq tablet extended release 20 meq PO BID prednisolone acetate 1 % drops,suspension 1 drp ophthalmic (eye) DAILY docusate sodium [Colace] 100 mg capsule 100 mg PO DAILY lactobacillus combination no.9 [Adult 50 Plus Probiotic] 1 cap PO DAILY guaifenesin [Mucinex] 1,200 mg tablet extended release 12hr 1,200 mg PO BID quetiapine 25 mg tablet 25 mg PO BID liothyronine 5 mcg tablet 5 mcg PO DAILY Discontinued valacyclovir 1 gram tablet 1,000 mg PO QDAY nabumetone 750 mg tablet 750 mg PO BID meclizine 25 MG tablet 25 mg PO TID clonazepam 1 mg tablet 1 mg PO Q12H Paxlovid 300 mg (150 mg x 2)-100 mg tablets,dose pack 2 tab PO BID erythromycin 5 mg/gram (0.5 %) ointment 1 applic RIGHT EYE DAILY dextromethorphan polistirex [12-Hour Cough Relief] 30 mg/5 mL suspension,extended rel 12 hr 10 ml PO Q12H Referrals / Follow Up: Erica Richardson DO [Primary Care Provider, Family Practice] Disposition Disposition (needs filled in before D/C Order can be placed): Group Home Facility
--- NOTE | 2025-04-02 18:08 | NURSING ---
Called in report to PADILLA Capone from [facility] @ 18:02.
--- NOTE | 2025-04-06 15:43 | CASEMGMT ---
Care Management Received transfer summary from [facility] (phone - [phone]) (fax - [phone]). Verified with Rukhsana at [facility], patient was active with [facility] and physical therapy prior to admission. Updated HHC of d/c from acute to SNF level of care. Rukhsana reports will d/c patient and would just need orders to resume, when ready to d/c back to community. For continuity of care, verbal Handoff to LAURE Sethi on [facility]. -[place]
--- NOTE | 2025-04-07 17:03 | DS.PCM_ITS ---
Providers Date of Admission: 03/29/25 Date of Discharge: 04/02/25 Primary Care Physician: Dr. Erica Richardson DO Reason For Visit: HYPOXIA 2/2 COVID, HYPONATREMIA Diagnosis Discharge Diagnosis (1) COVID-19: Status: Acute Code(s): U07.1 - COVID-19 Plan 1. COVID-19 infection with hypoxia-oxygen will be weaned if possible, patient will remain on dexamethasone, remdesivir has been discontinued after today's dose due to the fact the patient is no longer hypoxic #2 generalized weakness-secondary to COVID-19 infection and poor oral intake- patient will be given supportive care and IV fluids, PT and OT are seeing patient #3 hypothyroidism-continue Synthroid #4 dementia-complicates care, management, recovery, and prognosis #5 essential hypertension-continue amlodipine #6 hyponatremia-labs will be monitored Total clinical time spent by myself addressing patient's medical issues, reviewing all of the data, and collaborating with patient's care team: 35 minutes Medications at Discharge Home Medications amlodipine 5 mg tablet 5 mg PO DAILY blood pressure 11/22/22 calcitriol 0.5 mcg capsule 0.5 mcg PO DAILY supplement 11/22/22 cholecalciferol (vitamin D3) 25 mcg (1,000 unit) capsule 25 mcg PO DAILY SUPPLEMENT 11/22/22 escitalopram oxalate 10 mg tablet (Lexapro) 10 mg PO DAILY ANXIETY 11/22/22 memantine 5 mg tablet 5 mg PO BID Alzheimers 11/22/22 acetaminophen 500 mg capsule 500 mg PO BID pain 05/19/23 pyridoxine (vitamin B6) 100 mg tablet 100 mg PO DAILY supplement 05/19/23 liothyronine 5 mcg tablet 5 mcg PO DAILY thryoid 07/04/24 quetiapine 25 mg tablet 25 mg PO BID mood 07/04/24 pregabalin 75 mg capsule 75 mg PO TID neuropathy 02/09/25 vitamins A,C,J-hpth-scwcfl 4,296 mcg-226 mg-90 mg capsule (PreserVision AREDS) 1 cap PO BID supplement 02/09/25 docusate sodium 100 mg capsule (Colace) 100 mg PO DAILY constipation 03/29/25 guaifenesin 1,200 mg tablet, extended release 12 hr (Mucinex) 1,200 mg PO BID cough 03/29/25 lactobacillus combination no.9 1 cap PO DAILY probiotic 03/29/25 levothyroxine 125 mcg tablet 125 mcg PO DAILY thyroid 03/29/25 potassium chloride 20 mEq tablet,extended release 20 meq PO BID supplement 03/29/25 prednisolone acetate 1 % eye drops,suspension 1 drp ophthalmic (eye) DAILY eye inflammation 03/29/25 acyclovir 200 mg capsule 400 mg (2 x 200 mg) PO BID COVID #0 caps 04/02/25 clonazepam 1 mg tablet 1 mg PO Q12 mood #4 tabs 04/02/25 dexamethasone 4 mg tablet 6 mg (1.5 x 4 mg) PO DAILY Covid #0 tabs 04/02/25 erythromycin 5 mg/gram (0.5 %) eye ointment 1 applic RIGHT EYE DAILY eye infection #0 grams 04/02/25 etodolac 300 mg capsule 300 mg PO BID pain #0 caps 04/02/25 Hospital Course Operations None Procedures None Summary of Care Provided Minutes Spent on Discharge: 31 Hospital Course: Patient was seen in the emergency room at [facility] with complaints of a positive COVID test and fever and generalized weakness. She had been diagnosed a few days prior with a home COVID test. Patient was found to need supplemental oxygen in the emergency room, she was admitted to PCU and remdesivir was administered as well as corticosteroids. Patient was seen in consultation by PT and OT, it would felt that she would benefit from temporary placement in a [facility] facility for rehab services and the patient consented. On 04/02/2025, patient was seen and examined:alert and no apparent distress General Appearance: cooperative, well kempt and well developed Orientation / Consciousness: awake, oriented to person and oriented to place HEENT normocephalic, head/scalp atraumatic and moist oral mucous membranes Eyes PERRL, EOMs intact bilaterally and conjunctivae normal Neck supple, no JVD, thyroid normal and no carotid bruits General: trachea midline Resp normal respiratory effort, no retractions, no use of accessory muscles and clear to auscultation bilaterally Auscultation: Negative for rales, rhonchi or wheezes Cardio regular rate, regular rhythm, S1 normal heart sound, S2 normal heart sound, no rub and no gallops Cardio Narrative: There is a 2/6 systolic murmur at the apex and left sternal border GI normal to inspection, nondistended, normoactive bowel sounds, soft to palpation, non-tender and non-distended Extremity no clubbing, cyanosis or edema Skin no rashes or lesions noted General Skin Exam: no breakdown Neuro CN's II-XII intact bilaterally, no focal motor deficits and no sensory deficits noted Sensorium / Orientation: awake, alert, oriented to person and oriented to place Speech: speech normal Psych affect normal Patient was discharged in stable condition on 04/02/2025 Weight / BMI Weight Weight: 82.554 kg Body Mass Index (BMI) 27.6 ABG / Lab / Microbiology Data 03/30/25 05:28 04/02/25 06:29 Microbiology: Microbiology 03/29/25 14:02 Blood Culture (Wb) - Left Wrist Blood Culture - Final No growth in 5 days. 03/29/25 13:10 Blood Culture (Wb) - Right Wrist Blood Culture - Final No growth in 5 days. 03/29/25 14:02 Urine, Clean Catch Urine Culture - Final Culture exhibits no growth. 03/29/25 13:40 Mucosa - Nose SARS-CoV-2, Influenza & RSV (PCR) - Final SARS-CoV-2 (COVID 19 PCR) D/C Instructions DC O2, CPAP, BIPAP Needs Home O2 Discharge instructions: No Meaningful Use Info Meaningful Use Meaningful Use Diagnoses (Choose all that apply): None applicable Discharge Plan Admission Admit Date/Time: 03/29/25 17:35 Primary Reason for Your Visit: hypoxia, weaknesss, COVID 19 Attending Provider: James Lamar Primary Care Provider: Erica Richardson Consulting Providers: Vivienne Lowe Discharge Orders/Prescriptions Prescriptions: New erythromycin 5 mg/gram (0.5 %) Ointment 1 applic RIGHT EYE DAILY Qty: 0 0RF dexamethasone 4 mg Tablet 6 mg PO DAILY Qty: 0 0RF Rx Instructions: give one dose on 04/03/25 then discontinue etodolac 300 mg Capsule 300 mg PO BID Qty: 0 0RF acyclovir 200 mg Capsule 400 mg PO BID Qty: 0 0RF clonazepam 1 mg Tablet 1 mg PO Q12 Qty: 4 0RF Continued pregabalin 75 mg capsule 75 mg PO TID PreserVision AREDS 4,296 mcg-226 mg-90 mg capsule 1 cap PO BID acetaminophen 500 mg capsule 500 mg PO BID pyridoxine (vitamin B6) 100 mg tablet 100 mg PO DAILY cholecalciferol (vitamin D3) 25 mcg (1,000 unit) capsule 25 mcg PO DAILY memantine 5 mg tablet 5 mg PO BID escitalopram oxalate [Lexapro] 10 mg tablet 10 mg PO DAILY amlodipine 5 mg tablet 5 mg PO DAILY calcitriol 0.5 mcg capsule 0.5 mcg PO DAILY Rx Instructions: please discontinue any rx for calcitriol by an other doctors levothyroxine 125 mcg tablet 125 mcg PO DAILY potassium chloride 20 mEq tablet extended release 20 meq PO BID prednisolone acetate 1 % drops,suspension 1 drp ophthalmic (eye) DAILY docusate sodium [Colace] 100 mg capsule 100 mg PO DAILY lactobacillus combination no.9 [Adult 50 Plus Probiotic] 1 cap PO DAILY guaifenesin [Mucinex] 1,200 mg tablet extended release 12hr 1,200 mg PO BID quetiapine 25 mg tablet 25 mg PO BID liothyronine 5 mcg tablet 5 mcg PO DAILY Discontinued valacyclovir 1 gram tablet 1,000 mg PO QDAY nabumetone 750 mg tablet 750 mg PO BID meclizine 25 MG tablet 25 mg PO TID clonazepam 1 mg tablet 1 mg PO Q12H Paxlovid 300 mg (150 mg x 2)-100 mg tablets,dose pack 2 tab PO BID erythromycin 5 mg/gram (0.5 %) ointment 1 applic RIGHT EYE DAILY dextromethorphan polistirex [12-Hour Cough Relief] 30 mg/5 mL suspension,extended rel 12 hr 10 ml PO Q12H Referrals / Follow Up: Erica Richardson DO [Primary Care Provider, Family Practice] Disposition Disposition (needs filled in before D/C Order can be placed): [facility]
== END 2025-04-02 18:50 | disposition skilled nursing facility (03) | DRG 177 ==
LOC: ED 17:00 → PCU 18:26
PROVIDERS: Admitting Provider Internal Medicine; Emergency Provider Emergency Medicine; PCP Family Medicine; Visit Provider Internal Medicine
DX: U07.1 COVID-19 (principal); J12.82 Pneumonia due to coronavirus disease 2019; E87.20 Acidosis, unspecified; E87.1 Hypo-osmolality and hyponatremia; F03.90 Unspecified dementia, unspecified severity, without behavioral disturbance, psychotic disturbance, mood disturbance, and anxiety; I10 Essential (primary) hypertension; E03.9 Hypothyroidism, unspecified; Z87.891 Personal history of nicotine dependence; Z81.8 Family history of other mental and behavioral disorders; Z79.899 Other long term (current) drug therapy; R09.02 Hypoxemia; Z85.3 Personal history of malignant neoplasm of breast; Z90.10 Acquired absence of unspecified breast and nipple
CPT/HCPCS: 36415; 71045; 71275; 80048; 80053; 81001; 83605; 84484; 85025; 85610; 85730; 87040; 87086; 87631; 93005; 94640; 94668; 97116; 97162; 97167; 97530; 97535; 99285; Q9967; A4216; J0248; J2405